=== PATIENT | male | born 1950 | race Caucasian/White ===

== ENCOUNTER 2023-04-01 07:50 | Outpatient (OUT) | payer MEDICARE, OTHER, SELFPAY ==
--- NOTE | 2023-04-01 08:00 | US_ITS ---
The [address] [address] Patient Name: RIZWAN LOCK MRN: [id number] date: 1950 Sex: M Assigned Patient Location: Current Patient Location: US Accession/Order Number: [id number] Exam Date: 04/01/2023 08:01 Report Date: 04/01/2023 08:39 At the request of: MICKI MCRAE Procedure: US renal BI Ultrasound kidneys, bilateral HISTORY: Kidney Stone N20.0, Nocturia R35.1 COMPARISON: None. TECHNIQUE: Transabdominal ultrasound imaging of both kidneys was performed. FINDINGS: Both kidneys demonstrate normal echotexture and echogenicity. The right kidney measures 13.3 x 6.4 x 7.1 cm with diffuse cortical thinning to 0.9 cm. There is no hydronephrosis of right kidney. The left kidney measures 14.8 x 5.7 x 7.1 cm. Renal cortex measures 1.1 cm. No hydronephrosis of left kidney. There are tiny echogenic structures with twinkle artifact seen throughout the left kidney, could be renal vascular calcifications or tiny nonobstructing stones. No structural renal lesion is seen on either side. The bladder is incompletely distended and not well evaluated, with prevoid volume of 35 cc. US/US renal BI IMPRESSION: 1. Diffuse cortical thinning of both kidneys, without hydronephrosis. 2. Tiny punctate calcifications in the left kidney that could be renal vascular calcific lesions versus tiny nonobstructing stones. 3. Incompletely distended bladder. Electronically authenticated by: MICAELA JUNG Date: 04/01/2023 08:39
== END 2023-04-01 07:51 | disposition home or self-care (01) ==
LOC: US 07:50
PROVIDERS: PCP Family Medicine; Visit Provider Urology
DX: N40.1 Benign prostatic hyperplasia with lower urinary tract symptoms (principal); N20.0 Calculus of kidney; R35.1 Nocturia; N52.9 Male erectile dysfunction, unspecified
CPT/HCPCS: 76775

== ENCOUNTER 2023-04-25 07:29 | Outpatient (OUT) | payer MEDICARE, OTHER, SELFPAY ==
[2023-04-25 07:51] LABS: Basophils Percent Auto 0.4 % (0.2-2.0); Eosinophils Absolute Auto 0.2 10^3/uL (0.0-0.7); Eosinophils Percent Auto 1.8 % (0.9-7.0); Immature Granulocytes Abs Auto 0.03 10^3/uL (0.00-0.03); Immature Granulocytes Pct Auto 0.3 % (0.0-0.5); Lymphocytes Absolute Auto 2.9 10^3/uL (1.2-3.8); Lymphocytes Percent Auto 28.6 % (20.5-60.0); Mean Corpuscular HGB Conc 32.7 g/dL (29.9-35.2); Mean Corpuscular Hemoglobin 29.1 pg (25.9-34.0); Mean Corpuscular Volume 89.3 fL (80.0-94.0); Mean Platelet Volume 9.5 fL (9.5-13.5); Monocytes Absolute Auto 0.7 10^3/uL (0.3-0.8); Monocytes Percent Auto 6.7 % (1.7-12.0); Neutrophils Absolute Auto 6.3 10^3/uL (1.4-6.5); Neutrophils Percent Auto 62.2 % (43.0-75.0); Platelet Count 262 10^3/uL (150-450); Red Blood Count 5.49 10^6/uL (4.70-6.10); Red Cell Distribution Width 14.4 % (11.0-15.0); White Blood Count 10.1 10^3/uL (4.0-11.0)
[2023-04-25 08:21] LABS: Estimated Average Glucose 108 mg/dL; Glycohemoglobin A1C 5.4 % (4.5-6.2)
[2023-04-25 08:38] LABS: Prostate Specific Antigen Scrn 0.59 ng/mL (<=4.00)
[2023-04-25 09:10] LABS: Alanine Aminotransferase 38 U/L (16-63); Albumin Level 3.8 g/dL (3.4-5.0); Alkaline Phosphatase 58 U/L (46-116); Aspartate Amino Transferase 27 U/L (15-37); BUN Creatinine Ratio 11.8; Bilirubin Total 0.5 mg/dL (0.2-1.0); Chloride 102 mmol/L (98-107); Cholesterol 137 mg/dL (<=200); Estimated GFR (African America >60 (>=60); Estimated GFR (Non-African Ame >60 (>=60); Free T3 2.47 pg/mL (2.18-3.98); Globulin 3.8 g/dL; Glucose 99 mg/dL (74-106); HDL Cholesterol 34 mg/dL (40-60); Sodium 138 mmol/L (136-145); Thyroid Stimulating Hormone 3.364 uIU/mL (0.358-3.740); Total Protein 7.6 g/dL (6.4-8.2); Triglycerides 216 mg/dL (<=150); VLDL CHOLESTEROL 43.2 mg/dL
[2023-04-26 11:08] LABS: Insulin 30.9 uIU/mL (2.6-24.9)
== END 2023-04-25 07:30 | disposition home or self-care (01) ==
LOC: LAB 07:32
PROVIDERS: PCP Family Medicine; Visit Provider Family Medicine
DX: I10 Essential (primary) hypertension (principal); G25.0 Essential tremor; E78.5 Hyperlipidemia, unspecified; R73.09 Other abnormal glucose; Z12.5 Encounter for screening for malignant neoplasm of prostate
CPT/HCPCS: 36415; 80053; 80061; 83036; 83525; 84436; 84443; 84481; 85025; G0103

== ENCOUNTER 2023-08-15 08:57 | Observation (INO) | payer MEDICARE, OTHER, SELFPAY ==
[2023-08-15] VITALS (29 sets, daily range): BP systolic 122–168; BP diastolic 66–89; PULSE 64–83; RESP 9–23; TEMP 36.4–36.5; O2SAT 91–97; BMI 41.1; BMI 43.4
--- NOTE | 2023-08-15 09:15 | ED.GENADUL1 ---
HPI - General Adult General Chief complaint: Chest Pain Stated complaint: CHEST PAIN/ SHORTNESS OF BREATH Time Seen by Provider: 08/15/23 09:05 Source: patient Mode of arrival: Wheelchair History of Present Illness HPI narrative: Patient is a 73-year-old male who is presenting to the Emergency Room with chief complaint of pain between his scapula that radiates to the front of his chest. Patient has had cough, congestion for the past 3 weeks. Patient woke up at 7 AM this morning with chest ache/tightness with radiation into his shoulder and left arm. Patient also had a different pain from his left mid scapula intermittently rating to the front. Patient says his pain was 8/10 when he woke up this morning at 7 AM. Patient is not diaphoretic, no nausea vomiting. Patient Has no recent traveling or trauma. Patient has no history of aortic aneurysm or dissection. Patient has no cardiac history. Patient was having chest pain and tightness 6 months ago, he had a stress test and echocardiogram at that time. Dr. Lerma sent him home with nitroglycerin tablets to use if needed. Patient did take 2 nitroglycerin tablets this morning his pain and discomfort is currently 2/10. . All systems are negative except as noted/marked. All systems reviewed and otherwise negative. . Nurses note and vital signs reviewed and patient is not hypoxic. General: The patient appears well and in no apparent distress. Patient is resting comfortably on cart. Patient is not toxic, lethargic, or listless Skin: Warm, dry, no pallor noted. There is no rash noted. No petechiae, purpura. Head: Normocephalic, atraumatic Eye: Normal conjunctiva, no drainage, EOMI. PERRL Ears, Nose, Mouth, and Throat: oral mucosa is moist. Nares patent. Mouth without vesicles. Cardiovascular: Regular Rate and Rhythm, no murmur, gallop, rub Respiratory: Patient is in no distress, no accessory muscle use, lungs are clear to auscultation, no wheezing, rales or rhonchi Back: Patient had no reproducible tenderness to palpation to the soft tissue to mid scapular area. Patient has chronic skin condition, Multiple dry skin tags.non-tender, no CVA tenderness bilaterally to percussion. No CT LS midline pain. GI: soft, No midepigastric tenderness to palpation, obese, no peritoneal signs, no flank pain bilateral, otherwise no tenderness to palpation, no masses appreciated. No rebound, guarding, or rigidity noted. No flank pain bilateral, No distention Musculoskeletal: Patient has full range of motion of all of the extremities, no motor, sensory, or focal neurological deficits Neurological: A&O x3, normal speech Psychiatric: Cooperative Related Data Home Medications Medication Instructions Recorded Confirmed allopurinol 300 mg tablet 300 mg PO DAILY 08/15/23 08/15/23 hydrochlorothiazide 12.5 mg capsule 12.5 mg PO Q12H 08/15/23 08/15/23 levofloxacin 750 mg tablet 750 mg PO Q24H 08/15/23 08/15/23 meloxicam 15 mg tablet 15 mg PO DAILY 08/15/23 08/15/23 potassium citrate 10 mEq (1,080 10 meq PO DAILY 08/15/23 08/15/23 mg) tablet,extended release primidone 50 mg tablet 50 mg PO DAILY 08/15/23 08/15/23 simvastatin 20 mg tablet 20 mg PO DAILY 08/15/23 08/15/23 solifenacin 10 mg tablet 10 mg PO DAILY 08/15/23 08/15/23 tamsulosin 0.4 mg capsule 0.4 mg PO Q24H 08/15/23 08/15/23 Allergies Allergy/AdvReac Type Severity Reaction Status Date / Time No Known Drug Allergies Allergy Verified 08/15/23 09:06 Exam Constitutional Vital Signs, click to edit/add: Last Vital Signs Temp 97.7 F 08/15/23 11:51 Pulse 66 08/15/23 11:46 Resp 23 08/15/23 11:46 BP 127/73 08/15/23 11:46 Pulse Ox 95 08/15/23 11:46 O2 Del Method Room Air 08/15/23 09:06 Course Vital Signs Vital signs: Vital Signs Pulse Rate 79 08/15/23 09:03 Respiratory Rate 18 08/15/23 09:03 Temperature 97.7 F 08/15/23 11:51 Pulse Rate 66 08/15/23 11:46 Respiratory Rate 23 08/15/23 11:46 Blood Pressure 127/73 08/15/23 11:46 Pulse Oximetry 95 08/15/23 11:46 Oxygen Delivery Method Room Air 08/15/23 09:06 Medical Decision Making MDM Narrative Medical decision making narrative: Patient's initial EKG, troponin were negative. D-dimer was Resident, but CT of the chest was ordered To rule out PE, possibility of dissection or other acute pathology causing patient's mid scapular pain radiating to his sternum. Patient has not had a return of significant pain. Patient will be admitted for chest pain rule out acute coronary syndrome. Patient will be admitted to Dr. Lerma for Chest pain to rule out acute cord syndrome. Patient did have a stress test and echocardiogram approximately 6 months ago. Patient did have a cardiac stress test approximately 10-15 years ago. Patient has no cardiac history. Patient does take medication for cholesterol and high blood pressure. Patient's heart score is 4 Patient will be admitted to [facility] telemetry to Dr. Lerma. Lab Data Lab results reviewed: Yes I reviewed the patient's lab results Labs: Lab Results 08/15/23 Range/Units 09:10 WBC 12.8 H (4.0-11.0) 10^3/uL RBC 5.49 (4.70-6.10) 10^6/uL Hgb 16.3 (14.0-18.0) g/dL Hct 49.4 (42.0-54.0) % MCV 90.0 (80.0-94.0) fL MCH 29.7 (25.9-34.0) pg MCHC 33.0 (29.9-35.2) g/dL RDW 14.1 (11.0-15.0) % Plt Count 282 (150-450) 10^3/uL MPV 9.4 L (9.5-13.5) fL Neut % (Auto) 70.9 (43.0-75.0) % Lymph % (Auto) 19.1 L (20.5-60.0) % [place] % (Auto) 7.3 (1.7-12.0) % Eos % (Auto) 1.8 (0.9-7.0) % Baso % (Auto) 0.4 (0.2-2.0) % Neut # (Auto) 9.1 H (1.4-6.5) 10^3/uL Lymph # (Auto) 2.4 (1.2-3.8) 10^3/uL [place] # (Auto) 0.9 H (0.3-0.8) 10^3/uL Eos # (Auto) 0.2 (0.0-0.7) 10^3/uL Baso # (Auto) 0.1 (0.0-0.1) 10^3/uL Abs Immat Gran (auto) 0.06 H (0.00-0.03) 10^3/uL Imm/Tot Granulo (auto) 0.5 (0.0-0.5) % D-Dimer 1.98 H* (<=0.59) mg/L FEU Sodium 136 (136-145) mmol/L Potassium 3.6 (3.5-5.1) mmol/L Chloride 102 (98-107) mmol/L Carbon Dioxide 31.0 (21.0-32.0) mmol/L Anion Gap 6.6 BUN 17.0 (7.0-18.0) mg/dL Creatinine 0.92 (0.70-1.30) mg/dL Est GFR ( Amer) >60 (>=60) Est GFR (Non-Af Amer) >60 (>=60) BUN/Creatinine Ratio 18.5 Glucose 85 (74-106) mg/dL Calcium 9.0 (8.5-10.1) mg/dL Total Bilirubin 0.6 (0.2-1.0) mg/dL AST 19 (15-37) U/L ALT 29 (16-63) U/L Alkaline Phosphatase 59 (46-116) U/L Troponin I High Sens 6.0 (4.0-76.1) pg/mL NT-Pro-B Natriuret Pep 84.0 (<=900.0) pg/mL Total Protein 7.2 (6.4-8.2) g/dL Albumin 3.3 L (3.4-5.0) g/dL Globulin 3.9 g/dL Albumin/Globulin Ratio 0.8 Lipase 23.0 (16.0-77.0) U/L ECG Data Attestation: I personally reviewed and interpreted this ECG as follows: (EKG interpretation. Normal sinus rhythm at 75 beats a minute. Normal axis deviation. No acute ST elevation, no acute ectopy. QTC of 418. ) Discharge Plan Discharge Chief Complaint: Chest Pain Clinical Impression: Chest pain Patient Disposition: Home, Self-Care Time of Disposition Decision: 12:02 Condition: Fair Prescriptions / Home Meds: No Action primidone 50 mg tablet 50 mg PO DAILY meloxicam 15 mg tablet 15 mg PO DAILY tamsulosin 0.4 mg capsule 0.4 mg PO Q24H potassium citrate 10 mEq (1,080 mg) tablet extended release 10 meq PO DAILY simvastatin 20 mg tablet 20 mg PO DAILY hydrochlorothiazide 12.5 mg capsule 12.5 mg PO Q12H allopurinol 300 mg tablet 300 mg PO DAILY levofloxacin 750 mg tablet 750 mg PO Q24H solifenacin 10 mg tablet 10 mg PO DAILY Stand Alone Forms: Portal Instructions Referrals: Guicho Lerma MD [Primary Care Provider] - 1 week
--- NOTE | 2023-08-15 09:17 | ECG_ITS ---
The [facility] Test Date: 2023-08-15 Pat Name: RIZWAN LOCK Department: Room: - Gender: Male [employer]: : 1950 Requested By: MARIELLE RAMIREZ Order Number: [id number] Reading MD: MARIELLE RAMIREZ Measurements Intervals [place] Rate: 75 P: 63 SC: 238 QRS: 85 QRSD: 74 T: 59 QT: 388 QTc: 418 Interpretive Statements 1100 Sinus rhythm 2231 First degree AV block 3433 Septal myocardial infarction, probably old 8102 Low QRS voltage in chest leads 9150 abnormal ECG Compared to ECG 07/26/2022 10:22:47 First degree AV block now present Myocardial infarct finding now present Electronically Signed On 08-17-2023 6:50:03 EST by MARIELLE RAMIREZ
[2023-08-15] MEDS: ASPIRIN 81 MG TAB.CHEW 162 MG PO (09:28)
--- NOTE | 2023-08-15 09:32 | CT_ITS ---
The [address] [address] Patient Name: RIZWAN LOCK MRN: [id number] date: 1950 Sex: M Assigned Patient Location: ER Current Patient Location: ER Accession/Order Number: [id number] Exam Date: 08/15/2023 09:58 Report Date: 08/15/2023 10:34 At the request of: YOVANI VELASCO Procedure: CT angio chest EXAM: CT angio chest HISTORY: sob COMPARISON: 07/26/2022 TECHNIQUE: CT angiography of the chest was performed without IV contrast followed by IV contrast, including 3D post processing CTA image reconstruction. CT dose reduction technique was used, including Automated Exposure Control. IV CONTRAST: 98 mL Omnipaque 350 FINDINGS: Diagnostic quality: Adequate There is no evidence for pulmonary embolism. The heart is not enlarged. There is no pericardial effusion. There are no abnormally enlarged hilar or mediastinal lymph nodes. The central tracheobronchial tree is clear. The lungs are clear. There is no pleural effusion. No acute process identified in the visualized upper abdomen. No destructive osseous changes are seen. There are degenerative changes of the thoracic spine. CT/CT angio chest IMPRESSION: No CT findings to suggest pulmonary embolism. Electronically authenticated by: TRACEY RIDDLE Date: 08/15/2023 10:34
[2023-08-15 09:41] LABS: Basophils Absolute Auto 0.1 10^3/uL (0.0-0.1); Basophils Percent Auto 0.4 % (0.2-2.0); Eosinophils Absolute Auto 0.2 10^3/uL (0.0-0.7); Eosinophils Percent Auto 1.8 % (0.9-7.0); Hematocrit 49.4 % (42.0-54.0); Hemoglobin 16.3 g/dL (14.0-18.0); Immature Granulocytes Abs Auto 0.06 10^3/uL (0.00-0.03); Immature Granulocytes Pct Auto 0.5 % (0.0-0.5); Lymphocytes Absolute Auto 2.4 10^3/uL (1.2-3.8); Lymphocytes Percent Auto 19.1 % (20.5-60.0); Mean Corpuscular Hemoglobin 29.7 pg (25.9-34.0); Mean Platelet Volume 9.4 fL (9.5-13.5); Monocytes Absolute Auto 0.9 10^3/uL (0.3-0.8); Monocytes Percent Auto 7.3 % (1.7-12.0); Neutrophils Absolute Auto 9.1 10^3/uL (1.4-6.5); Neutrophils Percent Auto 70.9 % (43.0-75.0); Platelet Count 282 10^3/uL (150-450); Red Blood Count 5.49 10^6/uL (4.70-6.10); Red Cell Distribution Width 14.1 % (11.0-15.0); White Blood Count 12.8 10^3/uL (4.0-11.0)
[2023-08-15 09:42] LABS: Alanine Aminotransferase 29 U/L (16-63); Albumin Globulin Ratio 0.8; Albumin Level 3.3 g/dL (3.4-5.0); Alkaline Phosphatase 59 U/L (46-116); Anion Gap 6.6; Aspartate Amino Transferase 19 U/L (15-37); BUN Creatinine Ratio 18.5; Bilirubin Total 0.6 mg/dL (0.2-1.0); Chloride 102 mmol/L (98-107); Estimated GFR (African America >60 (>=60); Estimated GFR (Non-African Ame >60 (>=60); Globulin 3.9 g/dL; Glucose 85 mg/dL (74-106); Potassium 3.6 mmol/L (3.5-5.1); Sodium 136 mmol/L (136-145); Total Protein 7.2 g/dL (6.4-8.2)
[2023-08-15 09:48] LABS: D Dimer 1.98 mg/L FEU (<=0.59)
[2023-08-15 12:44] LABS: Troponin I High Sensitivity 6.3 pg/mL (4.0-76.1)
--- NOTE | 2023-08-15 12:53 | CA_ITS ---
Patient Name: RIZWAN LOCK MR#: [id number] : 1950 Exam Date: 08/15/2023 Ordering Doctor: DR MARIELLE RAMIREZ . ECHOCARDIOGRAM REPORT PROCEDURE: CA ECHO LIMITED INDICATIONS: Dyspnea, chest pain COMPARISON: None. DESCRIPTION: Limited ECHOCARDIOGRAM Real-time transthoracic echocardiography with 2D and M-mode performed. QUALITY: Technical quality was good. Limited echocardiogram per physician. 68 , 285#, BSA 2.38 m2 LEFT VENTRICLE: Normal chamber size. Mild concentric left ventricular hypertrophy. LV EF: Global left ventricular systolic function is normal; visually estimated ejection fraction is 60 to 65%. No obvious wall motion abnormalities. LEFT ATRIUM: Normal chamber size. RIGHT ATRIUM: Normal chamber size. RIGHT VENTRICLE: Normal chamber size. Normal systolic function. TRICUSPID VALVE: Normal mobility and thickness. MITRAL VALVE: Normal mobility and thickness. There is no mitral annular calcification. AORTIC VALVE: Normal trileaflet appearance. No visible sclerosis. Normal leaflet mobility. AORTIC ROOT: Normal diameter and appearance. PULMONIC VALVE: Normal thickness and mobility. PERICARDIUM: Anterior free space; trivial effusion versus fat pad. CONCLUSION: 1. Global left ventricular systolic function is normal; visually estimated ejection fraction is 60 to 65% 2. Mildly increased left ventricular wall thickness 3. The right ventricle is normal in size and systolic function 4. Anterior free space; trivial effusion versus fat pad A limited echocardiogram was performed Adult Echocardiography Procedure Report Left Ventricle LVEDD (3.7 - 5.6 cm): 4.31 cm LVESD (2.2 - 4.0 cm): 2.60 cm LVIVS thickness (0.6 - 1.2 cm): 1.27 cm LVPW thickness (0.5 - 1.0 cm): 1.13 cm LVOT Diameter 2.40 cm Left Atrium LA Volume Index (2D A2C): 21.95 ml/m2 Left Atrium Systolic Dimension: 3.63 cm Mitral Valve Right Ventricle Aorta AO Root Diam: 3.46 cm Ascending Ao Diam: 2.83 cm Aortic Valve Tricuspid Valve Pulmonic Valve Right Atrium Right Atrium Systolic Pressure: 52.57 ml, 52.57 ml Dictated by: Jaylan Rios M.D. on 08/18/2023 at 13:45 Approved by: Jaylan Rios M.D. on 08/18/2023 at 13:48
[2023-08-15 13:21] LABS: Thyroid Stimulating Hormone 1.889 uIU/mL (0.358-3.740)
[2023-08-15 13:31] LABS: Bilirubin Urine NEGATIVE (NEGATIVE); Blood Urine NEGATIVE (NEGATIVE); Clarity Urine CLEAR (CLEAR); Color Urine YELLOW (YELLOW); Glucose Urine UA NEGATIVE (NEGATIVE); Ketones Urine NEGATIVE (NEGATIVE); Leukocyte Esterase Urine NEGATIVE (NEGATIVE); Nitrite Urine NEGATIVE (NEGATIVE); Protein Urine NEGATIVE (NEG/TRACE); Urobilinogen Urine 0.2 EU/dL (0.2-1.0)
[2023-08-15 13:38] LABS: Bacteria Urine NONE SEEN #/HPF (NONE SEEN); Cast Seen? NONE SEEN #/LPF (NONE SEEN); Crystals Seen? None Seen #/HPF (None Seen); Mucus Urine NONE SEEN (NONE SEEN); RBC Urine NONE SEEN #/HPF (0-2); Squamous Epithelial Cell Urine NONE SEEN #/LPF (NONE/RARE); WBC Urine NONE SEEN #/HPF (NONE SEEN)
--- NOTE | 2023-08-15 14:18 | DIETREC ---
Recommendation: Change diet to Cardiac diet; regular diet texture
[2023-08-15] MEDS: PANTOPRAZOLE SODIUM 40 MG VIAL IV (15:40)
[2023-08-15] MEDS: METHYLPREDNISOLONE SOD SUCC PF 125 MG/2 ML VIAL 60 MG IVP (15:40)
[2023-08-15] MEDS: CEFTRIAXONE 1,000 MG in 0.9 % SODIUM CHLORIDE 50 ML 100 MG IV (15:40)
[2023-08-15 16:17] LABS: Troponin I High Sensitivity 5.6 pg/mL (4.0-76.1)
--- NOTE | 2023-08-15 16:57 | P.HP_ITS ---
H&P: HPI History of Present Illness Chief complaint: CHEST PAIN R/O, SHORTNESS OF BREATH Narrative: Seen in Er with chest pain - presure typoe - no assoc symptosm - admmitted to obs to rule out acute ischemia Review of Systems ROS Status of ROS 10 or more systems reviewed and unremark able except as noted in history and below PFSH PFSH Social History Highest level of school completed/degree received: Associate degree: occupational, technical, vocational program Meds Home Medications and Allergies Home Medications Medication Instructions Recorded Confirmed Type allopurinol 300 mg tablet 300 mg PO DAILY 08/15/23 08/15/23 History aspirin 81 mg capsule 81 mg PO DAILY #30 caps 08/15/23 Rx hydrochlorothiazide 12.5 mg capsule 12.5 mg PO QDAY 08/15/23 08/15/23 History levofloxacin 750 mg tablet 750 mg PO Q24H 08/15/23 08/15/23 History meloxicam 15 mg tablet 15 mg PO DAILY 08/15/23 08/15/23 History potassium citrate 10 mEq (1,080 10 meq PO BID 08/15/23 08/15/23 History mg) tablet,extended release primidone 50 mg tablet 50 mg PO BID 08/15/23 08/15/23 History simvastatin 20 mg tablet 20 mg PO .QHS 08/15/23 08/15/23 History solifenacin 10 mg tablet 10 mg PO DAILY 08/15/23 08/15/23 History tamsulosin 0.4 mg capsule 0.4 mg PO Q24H 08/15/23 08/15/23 History Allergies Allergy/AdvReac Type Severity Reaction Status Date / Time No Known Drug Allergies Allergy Verified 08/15/23 09:06 Exam Constitutional Vital Signs, click to edit/add: Last Vital Signs Temp 97.6 F 08/15/23 12:51 Pulse 65 08/15/23 14:00 Resp 18 08/15/23 12:51 BP 147/84 H 08/15/23 12:51 Pulse Ox 95 08/15/23 12:51 O2 Del Method Room Air 08/15/23 12:51 Documenting provider has reviewed patient's vital signs: yes Common normals: no apparent distress Chest Common normals: inspection of chest normal Respiratory Common normals: normal respiratory effort Cardio Common normals: no JVD GI Common normals: Normal to inspection, nondistended, normoactive bowel sounds present Results Labs Labs: Short CBC 08/15/23 Range/Units 09:10 WBC 12.8 H (4.0-11.0) 10^3/uL Hgb 16.3 (14.0-18.0) g/dL Hct 49.4 (42.0-54.0) % Plt Count 282 (150-450) 10^3/uL BMP 08/15/23 09:10 Sodium 136 Potassium 3.6 Chloride 102 Carbon Dioxide 31.0 BUN 17.0 Creatinine 0.92 Glucose 85 Calcium 9.0 Liver Function 08/15/23 Range/Units 09:10 Total Bilirubin 0.6 (0.2-1.0) mg/dL AST 19 (15-37) U/L ALT 29 (16-63) U/L Alkaline Phosphatase 59 (46-116) U/L Albumin 3.3 L (3.4-5.0) g/dL Urine 08/15/23 Range/Units 12:18 Urine Color Yellow (YELLOW) Urine Clarity Clear (CLEAR) Urine pH 5.0 (5.0-9.0) Ur Specific [place] 1.010 (1.005-1.025) Urine Protein Negative (NEG/TRACE) mg/dL Urine Glucose (UA) Negative (NEGATIVE) mg/dL Assessment and Plan Assessment and Plan (1) Chest pain: Plan Chest pain - enzymes rule aout acue damage, echo wiht excellent wallmotion and ef - will d/c to home - see me in office for setting up repeat stress test -
--- NOTE | 2023-08-18 16:10 | CM.DCFOLLOWU ---
Person spoke with:patient How are you feeling? well How is your pain? no pain Did you understand your discharge instructions? yes Do you have any questions about your discharge instructions? no Were you given any prescriptions at discharge? yes Were you able to get your prescriptions filled? yes Do you understand how to take your medications as ordered? yes Do you have any questions about your follow up appointment and do you plan to keep your follow up appointment? no questions, scheduled follow up with Dr. Lerma Is there anything else that you would like to discuss? no Questions/Comments/Concerns/Other:
== END 2023-08-15 17:13 | disposition home or self-care (01) ==
LOC: ER 12:02 → MS 12:44
PROVIDERS: Admitting Provider Family Medicine; Emergency Provider Emergency Medicine; PCP Family Medicine; Visit Provider Family Medicine
DX: R07.9 Chest pain, unspecified (principal); R06.02 Shortness of breath; Z79.899 Other long term (current) 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; Z79.82 Long term (current) use of aspirin
CPT/HCPCS: 36415; 71275; 80053; 81001; 83690; 83880; 84443; 84484; 85025; 85378; 93005; 93308; 94761; 96365; 96375; 99285; G0378; J0696; J2930; Q9967

== ENCOUNTER 2023-09-02 13:35 | Inpatient (IN) | payer MEDICARE, OTHER, SELFPAY ==
[2023-09-02] VITALS (23 sets, daily range): BP systolic 137–159; BP diastolic 77–86; PULSE 54–92; RESP 13–32; TEMP 36.5–36.7; O2SAT 94–98; BMI 38.0; BMI 38.7
--- NOTE | 2023-09-02 13:39 | ECG_ITS ---
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1950 Requested By: MARIELLE RAMIREZ Order Number: [id number] Reading MD: MARIELLE RAMIREZ Measurements Intervals [place] Rate: 87 P: 55 MN: 214 QRS: 74 QRSD: 74 T: 50 QT: 358 QTc: 402 Interpretive Statements 1100 Sinus rhythm 1470 with occasional supraventricular premature complexes 1570 with occasional ventricular premature complexes 2231 First degree AV block 4068 Nonspecific [place] abnormality 9150 abnormal ECG Compared to ECG 08/15/2023 09:04:52 Ventricular premature complex(es) now present Myocardial infarct finding no longer present Electronically Signed On 09-05-2023 6:22:18 EST by MARIELLE RAMIREZ
--- OUTSIDE RECORDS SUMMARY | 2023-09-02 13:46 | XMS_ITS | CCD ---
Author Name Unknown Address [address] [facility] [address] [place] [address] Organization [facility] Care Team Providers Care Warehouser Name Role Phone MD Marielle Lerma Primary Care Provider [phone] MD Miki Zeng Attending Provider Marielle Lerma Primary Care Physician [phone] DR MIKI ZENG Admitting Unavailable THOR, DR SWEET Attending Unavailable MAYCOY, DR PALOMARES Primary Care Unavailable THOR, DR SWEET Consulting Unavailable ZIEBDMITRIY, DR BEHZAD Cedeño Consulting Unavailable HOY, DR PALOMARES Primary Care Unavailable HOY, DR PALOMARES Admitting Unavailable HOY, DR PALOMARES Attending Unavailable HOY, DR PALOMARES Consulting Unavailable NEIDA, DR BEHZAD Cedeño Consulting Unavailable LATONYA AMADOR Consulting Unavailable THOR, DR SWEET Admitting Unavailable THOR, DR SWEET Attending Unavailable HOY, DR PALOMARES Primary Care Unavailable THOR, DR SWEET Consulting Unavailable THOR, DR SWEET Admitting Unavailable THOR, DR SWEET Attending Unavailable ASHLEY, DR PALOMARES Primary Care Unavailable THOR, DR SWEET Consulting Unavailable THOR, DR SWEET Admitting Unavailable THOR, DR SWEET Attending Unavailable HOY, DR PALOMARES Primary Care Unavailable THOR, DR SWEET Consulting Unavailable ZIABIEL, DR BEHZAD Cedeño Consulting Unavailable THOR, DR SWEET Admitting Unavailable THOR, DR SWEET Attending Unavailable HOKanika, DR PALOMARES Primary Care Unavailable ASHLEY, DR PALOMARES Primary Care Unavailable THOR, DR SWEET Consulting Unavailable THOR, DR SWEET Admitting Unavailable THOR, DR SWEET Attending Unavailable ZIEBDMITRIY, DR BEHZAD Cedeño Consulting Unavailable ASHLEY, DR PALOMARES Admitting Unavailable ASHLEY, DR PALOMARES Attending Unavailable HOY, DR PALOMARES Primary Care Unavailable MAYCOY, DR PALOMARES Consulting Unavailable THOR, DR SWEET Admitting Unavailable THOR, DR SWEET Attending Unavailable HOY, DR PALOMARES Primary Care Unavailable THOR, DR SWEET Consulting Unavailable WEST, DR RAFAEL Pizano Consulting Unavailable ZENG, DR SWEET Admitting Unavailable ZENG, DR SWEET Attending Unavailable HOY, DR PALOMARES Primary Care Unavailable ZENG, DR SWEET Consulting Unavailable WEST, DR RAFAEL Pizano Consulting Unavailable HOY, DR PALOMARES Admitting Unavailable HOY, DR PALOMARES Attending Unavailable HOY, DR PALOMARES Primary Care Unavailable HOY, DR PALOMARES Consulting Unavailable HOY, DR PALOMARES Admitting Unavailable HOY, DR PALOMARES Attending Unavailable HOY, DR PALOMARES Primary Care Unavailable ZENG, DR SEWET Admitting Unavailable ZENG, DR SWEET Attending Unavailable HOY, DR PALOMARES Primary Care Unavailable ZENG, DR SWEET Consulting Unavailable ZIEBER, DR BEHZAD Cedeño Consulting Unavailable AGUBOSIM, ROMEL Consulting Unavailable LONG, MILADYS Consulting Unavailable HOY, DR PALOMARES Primary Care Unavailable HAY, DR REEDER Admitting Unavailable HAY, DR REEDER Attending Unavailable WEST, DR RAFAEL Pizano Consulting Unavailable HAY, DR REEDER Consulting Unavailable HOY, DR PALOMARES Primary Care Unavailable HOY, DR PALOMARES Admitting Unavailable HOY, DR PALOMARES Attending Unavailable HOY, DR PALOMARES Consulting Unavailable WEST, DR RAFAEL Pizano Consulting Unavailable MARKER, DR GRANT Consulting Unavailable AGUBOSIM, ROMEL Consulting Unavailable AHMED, CARLOS Consulting Unavailable LUE ., NADEGE Tineo Consulting Unavailable NARDINBEHZAD Franklin Consulting Unavailable HOY, DR PALOMARES Primary Care Unavailable HOY, DR PALOMARES Consulting Unavailable NADERER, DR ERMA Garcia Admitting Unavailable NADERER, DR ERMA Garcia Attending Unavailable NADERER, DR ERMA Garcia Consulting Unavailable ANNITA, RUDDY Consulting Unavailable LUE ., NADEGE Tineo Consulting Unavailable MCCBEHZAD BECKER Consulting Unavailable THOR, DR SWEET Admitting Unavailable THOR, DR SWEET Attending Unavailable HOY, DR PALOMARES Primary Care Unavailable ZENG, DR SWEET Consulting Unavailable HOY, DR PALOMARES Primary Care Unavailable RUDDY ARIZA Admitting Unavailable ANNITARUDDY Attending Unavailable ANNITARUDDY Consulting Unavailable TROTTACACIA Franklin Consulting Unavailable Miki ZENG Attending Unavailable Miki ZENG Attending Unavailable Miki ZENG Attending Unavailable Allergies Allergy Classification Reported Allergen(s) Allergy Type Date of Onset Reaction(s) Facility (1 source) No Known Medication Allergies; Translations: [No Known Medication Allergies] Propensity to adverse reactions (disorder) [facility] Repository Medications Current Medications Medication Drug Class(es) Dates Sig (Normalized) Sig (Original) acetaminophen 325 mg oral tablet (1 source) Start: 09-02-2019 take 2 tablets by mouth once daily in the morning Acetaminophen (Tylenol) 325 mg Tablet Active 650 MG PO Every morning September 02, 2019 12:46pm acetaminophen 500 mg / diphenhydrAMINE hydrochloride 25 mg oral tablet (1 source) Histamine-1 Receptor Antagonist Start: 09-02-2019 take 2 tablets by mouth once daily at bedtime Diphenhydramine-Alan taminophen (Tylenol Pm Extra Strength) 25-500 mg Tablet Active 2 TAB PO Daily at bedtime September 02, 2019 12:46pm acetaminophen 325 mg / HYDROcodone bitartrate 5 mg oral tablet (4 sources) Opioid Agonist Start: 05-29-2021 take 1 tablet by mouth once daily acetaminophen-hydro codone 325 mg-5 mg oral tablet 1 tab(s), Oral, Daily pain, Refill(s) 0 Start Date: 05/29/21 Status: Ordered Start: 09-07-2019 End: 10-12-2019 take 1 tablet by mouth every four to six hours Hydrocodone-Acetaminophen (Brashear) 5-325 mg tablet Active 1 TAB PO EVERY 4-6 HOURS 40 7 September 28, 2019 1:45pm allopurinol 300 mg oral tablet (2 sources) Xanthine Oxidase Inhibitor Start: 03-10-2023 take 1 tablet by mouth once daily allopurinol 300 mg Tab 300 mg = 1 tab(s), Oral, Daily, # 90 tab(s), Refills(s) 3, Pharmacy: [facility]/pharmacy #[id number], 180, cm, 08/19/22 9:50:00 EST, Height/Length Dosing, 136.2, kg, 08/19/22 9:50:00 EST, Weight Dosing Start Date: 03/10/23 Status: Ordered Start: 02-25-2022 allopurinol 30 0 mg Tab 150 mg = 0.5 tab(s), Oral, Daily, # 30 tab(s), Refills(s) 11, Pharmacy: [facility] [id number], 180, cm, 02/25/22 14:22:00 EDT, Height/Length Dosing, 135, kg, 02/25/22 14:22:00 EDT, Weight Dosing Start Date: 02/25/22 Status: Ordered aspirin 81 mg oral tablet (3 sources) Platelet Aggregation Inhibitor, Nonsteroidal Anti-inflammatory Drug Start: 02-10-2019 take 2 tablets by mouth once daily aspirin 81 mg oral tablet 162 mg = 2 tab(s), Oral, Daily, Refills(s) 0 Start Date: 02/10/19 Status: Ordered Start: 01-02-2018 take 1 tablet by isa twice daily Aspirin (Aspir-81) 81 mg Tablet,Delayed Release (Dr/Ec) Active 1 TAB PO Twice daily January 02, 2018 9:35am clindamycin 0.01 mg/mg topical gel (1 source) Lincosamide Antibacterial Start: 05-25-2021 Clindagel 1% topical gel 1 keke, Topical, BID, Refill(s) 0 Start Date: 05/25/21 Status: Ordered cloNIDine hydrochloride 0.1 mg oral tablet (2 sources) Central alpha-2 Adrenergic Agonist Start: 04-23-2021 take 1 mg by mouth twice daily cloNIDine 0.1 mg tab mg tab(s), Oral, BID, Refills(s) 0 Start Date: 04/23/21 Status: Ordered colchicine 0.6 mg oral tablet (2 sources) Start: 05-25-2021 take 1 tablet by mouth twice daily colchicine 0.6 mg Tab 0.6 mg = 1 tab(s), Oral, BID, Refills(s) 0 Start Date: 05/25/21 Status: Ordered hydroCHLOROthiazide 12.5 mg oral capsule (2 sources) Thiazide Diuretic Start: 08-19-2022 take 1 capsule by mouth once daily hydrochlorothiazide 12.5 mg Cap 12.5 mg = 1 cap(s), Oral, Daily, # 90 cap(s), Refills(s) 3, Pharmacy: [facility]/pharmacy #[id number], 180, cm, 08/19/22 9:50:00 EST, Height/Length Dosing, 136.2, kg, 08/19/22 9:50:00 EST, Weight Dosing Start Date: 08/19/22 Status: Ordered Start: 02-25-2022 take 1 capsule by mo [facility] once daily hydrochlorothiazide 12.5 mg Cap 12.5 mg = 1 cap(s), Oral, Daily, # 30 cap(s), Refills(s) 6, Pharmacy: [facility] [id number], 180, cm, 02/25/22 14:22:00 EDT, Height/Length Dosing, 135, kg, 02/25/22 14:22:00 EDT, Weight Dosing Start Date: 02/25/22 Status: Ordered hyoscyamine sulfate 0.125 mg oral tablet (1 source) Start: 11-12-2021 hyoscyamine 0. 125 mg oral Tab Refills(s) 0 Start Date: 11/12/21 Status: Ordered lisinopril 40 mg oral tablet (3 sources) Angiotensin Converting Enzyme Inhibitor Start: 01-02-2018 take 1 mg by mouth once daily lisinopril 40 mg Tab mg tab(s), Oral, Daily, Refills(s) 0 Start Date: 02/10/19 Status: Ordered meclizine hydrochloride 25 mg oral tablet (2 sources) Antiemetic Start: 05-25-2021 take 1 tablet by mouth four times daily meclizine 25 mg Tab 25 mg = 1 tab(s), Oral, QID, Refills(s) 0 Start Date: 05/25/21 Status: Ordered meloxicam 15 mg oral tablet (3 sources) Nonsteroidal Anti-inflammatory Drug Start: 02-10-2019 take 1 mg by mouth once daily Mobic 15 mg Tab mg tab(s), Oral, Daily, Refills(s) 0 Start Date: 02/10/19 Status: Ordered Start: 01-02-2018 take 15 mg by mouth twice sarthak y Meloxicam Active 15 MG PO Twice daily January 02, 2018 9:35am Jqdqsnfz-Jvb-Tx-Lycopen-Lute in (Centrum Silver) 0.4-300-250 mg-mcg-mcg Tablet (1 source) Start: 09-02-2019 take 1 tablet by mouth once daily Engjsavi-Yrf-Ix-Lycopen-Lutein (Centrum Silver) 0.4-300-250 mg-mcg-mcg Tablet Active 1 TAB PO Daily September 02, 2019 12:45pm potassium bicarbonate 20 meq effervescent oral tablet (2 sources) Start: 01-02-2018 End: 09-02-2019 Potassium Bicarb-Citric Acid (Effer-K) 20 mEq Tablet, Effervescent Active 20 MEQ PO Twice daily September 02, 2019 12:40pm potassium citrate 10 meq extended release oral tablet (1 source) Start: 04-11-2023 potassium CITRATE 10 mEq ER Tab 10 mEq, 1 tab(s), Oral, BID, 60 tab(s), Refill(s) 11, [facility]/pharmacy #[id number], 180, cm, 04/11/23 11:56:00 EDT, Height/Length Dosing, 127, kg, 04/11/23 11:56:00 EDT, Weight Dosing Start Date: 04/11/23 Status: Ordered pravastatin sodium 20 mg ora l tablet (1 source) HMG- CoA Redu ctas e Inhi bito r Start: 01-02-2018 take 20 mg by mouth once daily at bedtime Pravastatin Active 20 MG PO Daily at bedtime January 02, 2018 9:35am primidone 50 mg oral tablet (3 sources) Anti -epi lept ic Agen t Start: 09-02-2019 take 12.5 mg by mouth once daily at bedtime Primidone Active 12.5 MG PO Daily at bedtime September 02, 2019 12:44pm Start: 02-10-2019 primidone 50 m g Tab 25 mg = 0.5 tab(s), Once a day (at bedtime), Refills(s) 0 Start Date: 02/10/19 Status: Ordered simvastatin 20 mg oral tablet (2 sources) HMG-CoA Reductase Inhibitor Start: 05-29-2021 take 1 tablet by mouth once daily at bedtime simvastatin 20 mg Tab 20 mg = 1 tab(s), Oral, Once a day (at bedtime), Refills(s) 0 Start Date: 05/29/21 Status: Ordered sodium bicarbonate 650 mg oral tablet (1 source) Start: 08-19-2022 take 1 tablet by mouth twice daily sodium bicarbonate 650 mg Tab 650 mg = 1 tab(s), Oral, BID, # 90 tab(s), Refills(s) 3, Pharmacy: [facility]/pharmacy #[id number], 180, cm, 08/19/22 9:50:00 EST, Height/Length Dosing, 136.2, kg, 08/19/22 9:50:00 EST, Weight Dosing Start Date: 08/19/22 Status: Ordered solifenacin succinate 10 mg oral tablet (2 sources) Cholinergic Muscarinic Antagonist Start: 04-08-2022 End: 12-23-2024 take 1 tablet by mouth once daily Vesicare 10 mg Tab 10 mg = 1 tab(s), Oral, Daily, X 90 day(s), # 90 tab(s), Refills(s) 11, Pharmacy: [facility], 180, cm, 02/25/22 14:22:00 EDT, Height/Length Dosing, 135, kg, 02/25/22 14:22:00 EDT, Weight Dosing Start Date: 04/08/22 Stop Date: 12/23/24 Status: Ordered Start: 02-25-2022 take 1 tablet by isa once daily Vesicare 10 mg Tab 10 mg = 1 tab(s), Oral, Daily, # 30 tab(s), Refills(s) 11, Pharmacy: [facility]/pharmacy #[id number], 180, cm, 02/25/22 14:22:00 EDT, Height/Length Dosing, 135, kg, 02/25/22 14:22:00 EDT, Weight Dosing Start Date: 02/25/22 Status: Ordered tadalafil 20 mg oral tablet (3 sources) Phosphodiesterase 5 Inhibitor Start: 10-23-2021 take 1 tablet by mouth once daily Cialis 20 mg Tab 20 mg = 1 tab(s), Oral, Daily, # 30 tab(s), Refills(s) 6, Pharmacy: [facility]/pharmacy #[id number], 180, cm, 10/22/21 14:56:00 EDT, Height/Length Dosing, 135, kg, 10/22/21 14:56:00 EDT, Weight Dosing Start Date: 10/23/21 Status: Ordered Start: 01-02-2018 take 1 tablet by isa once daily Tadalafil (Cialis) 10 mg Tablet Active 10 MG PO Daily January 02, 2018 9:35am tamsulosin hydrochloride 0.4 mg oral capsule (4 sources) alpha-Adrenergic Reilly Start: 04-11-2023 take 1 capsule by mouth once daily tamsulosin 0.4 mg Cap 0.4 mg = 1 cap(s), Oral, Daily, # 90 cap(s), Refills(s) 3, Pharmacy: [facility]/pharmacy #[id number], 180, cm, 04/11/23 11:56:00 EDT, Height/Length Dosing, 127, kg, 04/11/23 11:56:00 EDT, Weight Dosing Start Date: 04/11/23 Status: Ordered Start: 11-12-2021 tamsulosin 0.4 mg Cap Refills(s) 0 Start Date: 11/12/21 Status: Ordered Start: 01-08-2018 End: 09-02-2019 Tamsulosin Active 0.4 MG PO Every morning September 02, 2019 12:43pm administer 30 minutes after same meal each day; swallow whole with liquid; do not crush/chew/dissolve/open Completed/Discontinued Medications Medication Drug Class(es) Dates Sig (Normalized) Sig (Original) acetaminophen 325 mg / oxyCODONE hydrochloride 5 mg oral tablet (1 source) Opioid Agonist Start: 01-02-2018 End: 09-02-2019 take 1 tablet by mouth three times daily Oxycodone-Acetamin ophen Discontinued 1 TAB PO Three times daily January 02, 2018 9:35am September 02, 2019 12:41pm diphenhydrAMINE hydrochloride 25 mg / ibuprofen 200 mg oral capsule (1 source) Histamine-1 Receptor Antagonist, Nonsteroidal Anti-inflammatory Drug Start: 09-02-2019 End: 09-02-2019 take 2 capsules by mouth once daily at bedtime Ibuprofen-Diphenhy dramine Hcl (Advil Pm Liqui-Gels) 200-25 mg Capsule Discontinued 2 CAP PO Daily at bedtime September 02, 2019 12:45pm September 02, 2019 12:46pm ibuprofen 200 mg oral capsule (1 source) Nonsteroidal Anti-inflammatory Drug Start: 09-02-2019 End: 09-02-2019 Ibuprofen (Advil Liqui-Gel) 200 mg Capsule Discontinued 400 MG PO Every morning September 02, 2019 12:45pm September 02, 2019 12:46pm traZODone hydrochloride 50 mg oral tablet (1 source) Serotonin Reuptake Inhibitor Start: 01-02-2018 End: 09-02-2019 Trazodone Discontinued TABLET January 02, 2018 9:35am September 02, 2019 12:43pm triamcinolone acetonide 1 mg/ml topical cream (1 source) Corticosteroid Start: 05-25-2021 triamcinolone topical 0.1% cream 1 keke, Topical, BID, Refill(s) 0 Start Date: 05/25/21 Status: Ordered Problems Active Problems Problem Classification Problem Date Documented Da te Episodic/Chronic Allergic reactions (4 sources) Eczema; Translations: [Solar degeneration] 02-10-2019 Episodic Anxiety disorders (1 source) Anxiety disorder, unspecified; Translations: [ANXIETY DISORDER UNSPECIFIED] Onset: 08-01-2022 Chronic Calculus of urinary tract (13 sources) Kidney stone; Translations: [Calculus of kidney] Onset: 10-31-2021 Episodic Congestive heart failure; nonhypertensive (1 source) Unspecified diastolic (congestive) heart failure; Translations: [UNSPECIFIED DIASTOLIC HEART FAILURE] Onset: 05-17-2022 Chronic Coronary atherosclerosis and other heart disease (3 sources) Coronary atherosclerosis; Translations: [Atherosclerotic heart disease of [place] coronary artery without angina pectoris] Onset: 11-05-2021 05-25-2021 Chronic Diabetes mellitus without complication (1 source) Type 2 diabetes mellitus without complications; Translations: [TYPE 2 DM WITHOUT COMPLICATIONS] Onset: 05-17-2022 Chronic Diabetes mellitus without complication (1 source) Other abnormal glucose; Translations: [OTHER ABNORMAL GLUCOSE] Onset: 05-17-2022 Episodic Disorders of lipid metabolism (2 sources) Pure hypercholesterolemia , unspecified; Translations: [Hyperlipidemia, unspecified] Onset: 05-17-2022 Chronic Esophageal disorders (1 source) Gastro-esophageal reflux disease without esophagitis; Translations: [GERD WITHOUT ESOPHAGITIS] Onset: 08-01-2022 Chronic Essential hypertension (3 sources) Hypertensive disorder; Translations: [Essential (primary) hypertension] Onset: 08-01-2022 02-10-2019 Chronic Genitourinary symptoms and ill-defined conditions (6 sources) Post-micturition incontinence ; Translations: [Urge incontinence of urine] Onset: 11-05-2021 01-24-2020 Chronic Genitourinary symptoms and ill-defined conditions (8 sources) Nocturia; Translations: [Nocturia] Onset: 11-05-2021 Episodic Gout and other crystal arthropathies (1 source) Gout, unspecified; Translations: [GOUT UNSPECIFIED] Onset: 08-01-2022 Chronic Hyperplasia of prostate (5 sources) Benign prostatic hypertrophy with outflow obstruction; Translations: [Benign prostatic hyperplasia with lower urinary tract symptoms] Onset: 11-05-2021 Chronic Hypertension with complications and secondary hypertension (1 source) Hypertensive heart disease with heart failure; Translations: [HTN HEART DISEASE W/HEART FAIL] Onset: 05-17-2022 Chronic Joint disorders and dislocations; trauma-related (2 sources) Acetabular labrum tear 02-10-2019 Chronic Joint disorders and dislocations; trauma-related (2 sources) Tear of meniscus of knee 02-10-2019 Episodic Nonspecific chest pain (4 sources) Chest pain, unspecified; Translations: [CHEST PAIN UNSPECIFIED] Onset: 07-26-2022 Episodic Osteoarthritis (1 source) Unspecified osteoarthritis, unspecified site; Translations: [UNSPECIFIED OSTEOARTHRITIS UNS SITE] Onset: 08-01-2022 Chronic Other 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) 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; Translations: [DETENTION CURRENT USE OF ASPIRIN] Onset: 08-01-2022 Episodic Other 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) Other mcfp (current) 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; Translations: [OTH DETENTION CURRENT DRUG THERAPY] Onset: 08-01-2022 Episodic Other connective tissue disease (1 source) Presence of right artificial knee joint; Translations: [PRESENCE RT ARTIFICIAL KNEE JOINT] Onset: 11-12-2021 Chronic Other gastrointestinal disorders (2 sources) Occult blood in stools 02-10-2019 Episodic Other hereditary and degenerative nervous system conditions (2 sources) Essential tremor 05-25-2021 Chronic Other hereditary and degenerative nervous system conditions (1 source) Essential tremor; Translations: [ESSENTIAL TREMOR] Onset: 08-01-2022 Chronic Other inflammatory condition of skin (2 sources) Lichen simplex chronicus 05-25-2021 Episodic Other lower respiratory disease (1 source) Shortness of breath; Translations: [SHORTNESS OF BREATH] Onset: 08-01-2022 Episodic Other lower respiratory disease (1 source) Dyspnea, unspecified; Translations: [DYSPNEA UNSPECIFIED] Onset: 05-17-2022 Episodic Other male genital disorders (3 sources) Male erectile dysfunction, unspecified; Translations: [Erectile dysfunction] Onset: 11-05-2021 Chronic Other male genital disorders (2 sources) Impotence 01-24-2020 Chronic Other non-epithelial cancer of skin (5 sources) Basal cell carcinoma of lower extremity; Translations: [Basal cell carcinoma of skin] Onset: 08-01-2022 05-29-2021 Episodic Other nutritional; endocrine; and metabolic disorders (2 sources) Body mass index 40+ - severely obese 06-16-2019 Chronic Other nutritional; endocrine; and metabolic disorders (2 sources) Obesity 02-10-2019 Chronic Other nutritional; endocrine; and metabolic disorders (1 source) Body mass index (BMI) 40.0-44.9, adult; Translations: [BODY MASS INDEX BMI 40.0-44.9 ADULT] Onset: 11-12-2021 Chronic Other nutritional; endocrine; and metabolic disorders (1 source) Morbid (severe) obesity due to excess calories; Translations: [MORBID SEVERE OBES D/T EXCESS HANNAH] Onset: 11-12-2021 Chronic Other nutritional; endocrine; and metabolic disorders (1 source) Obesity, unspecified; Translations: [OBESITY UNSPECIFIED] Onset: 11-05-2021 Chronic Other screening for suspected conditions (not mental disorders or infectious disease) (1 source) Encounter for screening for malignant neoplasm of prostate; Translations: [ENC SCREEN MALIG NEOPLASM PROSTATE] Onset: 05-17-2022 Episodic Other skin disorders (2 sources) Actinic keratosis 05-25-2021 Episodic Residual codes; unclassified (2 sources) History of arthroscopy of knee joint 02-10-2019 Episodic Screening and history of mental health and substance abuse codes (1 source) Personal history of nicotine dependence; Translations: [PERSONAL HISTORY OF NICOTINE DEPEND] Onset: 08-01-2022 Episodic Spondylosis; intervertebral disc disorders; other back problems (4 sources) Other dorsalgia; Translations: [OTHER DORSALGIA] Onset: 05-15-2022 Episodic Unclassified (1 source) CONTACT W/AND (SUSP) EXPOS COVID-19; Translations: [CONTACT W/AND (SUSP) EXPOS COVID-19] Onset: 08-01-2022 Past or Other Problems Problem Classification Problem Date Documented Date Episodic/Chronic Abdominal pain (3 sources) Unspecified abdominal pain; Translations: [UNSPECIFIED ABDOMINAL PAIN] Onset: 02-18-2022 Episodic Other 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) 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; Translations: [URBAN REDEVELOPMENT SPECIALIST CURRNT USE ANTICOAGULANTS] Onset: 11-05-2021 Episodic Other diseases of kidney and ureters (1 source) Hydronephrosis with renal and ureteral calculous obstruction; Translations: [HYDRONPHROS RENL AND URETRL CALCUL OBST] Onset: 02-20-2022 Episodic Other nervous system disorders (1 source) Tremor, unspecified; Translations: [TREMOR UNSPECIFIED] Onset: 02-19-2022 Episodic Residual codes; unclassified (1 source) Other specified postprocedural states; Translations: [OTH SPECIFIED POSTPROCEDURAL STATES] Onset: 11-07-2021 Episodic Results Test Name Value Interpretation Reference Range Facility Ambulatory Visit Summaryon 0 04-11-2023 Ambulatory Visit Summary TOM APARICIO :1950 Visit Date:04/11/2023 Ambulatory Visit Instructions Your Diagnosis BPH with urinary obstruction Kidney stone Nocturia Impotence Tests Performed Urnls Dip Stick Auto w/o Microscopy POC [id number] Your Care Team Attending Physician - THOR BATISTA, Miki Cedeño Primary Care Physician - Marielle Lerma MD This Is Your Medications List allopurinol (allopurinol 300 mg Tab) hydrochlorothiazide (hydrochlorothiazide 12.5 mg Cap) potassium citrate (potassium CITRATE 10 mEq ER Tab) sodium bicarbonate (sodium bicarbonate 650 mg Tab) solifenacin (Vesicare 10 mg Tab) tadalafil (Cialis 20 mg Tab) tamsulosin (tamsulosin 0.4 mg Cap) Contact prescribing physician if questions or concerns acetaminophen-hydrocodone (acetaminophen-hydrocodon e 325 mg-5 mg oral tablet) aspirin (aspirin 81 mg oral tablet) clonidine (cloNIDine 0.1 mg tab) colchicine (colchicine 0.6 mg Tab) lisinopril (lisinopril 40 mg Tab) meclizine (meclizine 25 mg Tab) meloxicam (Mobic 15 mg Tab) primidone (primidone 50 mg Tab) simvastatin (simvastatin 20 mg Tab) [Image Removed: STOP]Stop taking these medications potassium chloride (Potassium Chloride (Eqv-K-Tab) 20 mEq oral tablet, extended release) Procedures Performed Cystoscopy (11/21/2021), Cystoscopy (11/06/2021), Colonoscopy (11/08/2013), Arthroplasty of the knee, Arthroscopic knee procedure, Basal cell carcinoma, Lithotripsy, Nose reconstruction, Repair of umbilical hernia, Rotator cuff repair, Wide excision. Discharge Vitals Heart Rate (Peripheral) 80 Respiratory Rate 16 Blood Pressure 134/76 Height 180 cm Height 71 in Weight 127 kg Weight 279.4 lb BMI 39.2 What to do next Scheduled Follow-Up Appointments Friday 11:00 AM EDT With: THOR BATISTA, Miki Cedeño Where: [facility] Patient Educationon 04-11-20 23 Patient Education Nephrology Dietary Guidelines to Help Prevent Kidney Stones Kidney stones are deposits of minerals and salts that form inside your kidneys. Your risk of developing kidney stones may be greater depending on your diet, your lifestyle, the medicines you take, and whether you have certain medical conditions. Most people can lower their chances of developing kidney stones by following the instructions below. Your dietitian may give you more specific instructions depending on your overall health and the type of kidney stones you tend to develop. What are tips for following this plan? Reading food labels ? Choose foods with no salt added or low-salt labels. Limit your salt (sodium) intake to less than 1,500 mg a day. ? Choose foods with calcium for each meal and snack. Try to eat about 300 mg of calcium at each meal. Foods that contain 200?500 mg of calcium a serving include: ? 8 oz (237 mL) of milk, lzypuyd-gqrfdgnjcwlv-gpvo y milk, and calcium-fortifiedfruit juice. Calcium-fortified means that calcium has been added to these drinks. ? 8 oz (237 mL) of kefir, yogurt, and soy yogurt. ? 4 oz (114 g) of tofu. ? 1 oz (28 g) of cheese. ? 1 cup (150 g) of dried figs. ? 1 cup (91 g) of cooked broccoli. ? One 3 oz (85 g) can of sardines or mackerel. Most people need 1,000?1,500 mg of calcium a day. Talk to your dietitian about how much calcium is recommended for you. Shopping ? Buy plenty of fresh fruits and vegetables. Most people do not need to avoid fruits and vegetables, even if these foods contain nutrients that may contribute to kidney stones. ? When shopping for convenience foods, choose: ? Whole pieces of fruit. ? Pre-made salads with dressing on the side. ? Low-fat fruit and yogurt smoothies. ? Avoid buying frozen meals or prepared deli foods. These can be high in sodium. ? Look for foods with live cultures, such as yogurt and kefir. ? Choose high-fiber grains, such as whole-wheat breads, oat bran, and wheat cereals. Cooking ? Do not add salt to food when cooking. Place a salt shaker on the table and allow each person to add his or her own salt to taste. ? Use vegetable protein, such as beans, textured vegetable protein (TVP), or tofu, instead of meat in pasta, casseroles, and soups. Meal planning ? Eat less salt, if told by your dietitian. To do this: ? Avoid eating processed or pre-made food. ? Avoid eating fast food. ? Eat less animal protein, including cheese, meat, poultry, or fish, if told by your dietitian. To do this: ? Limit the number of times you have meat, poultry, fish, or cheese each week. Eat a diet free of meat at least 2 days a week. ? Eat only one serving each day of meat, poultry, fish, or seafood. ? When you prepare animal protein, cut pieces into small portion sizes. For most meat and fish, one serving is about the size of the palm of your hand. ? Eat at least five servings of fresh fruits and vegetables each day. To do this: ? Keep fruits and vegetables on hand for snacks. ? Eat one piece of fruit or a handful of berries with breakfast. ? Have a salad and fruit at lunch. ? Have two kinds of vegetables at dinner. ? Limit foods that are high in a substance called oxalate. These include: ? Spinach (cooked), rhubarb, beets, sweet potatoes, and [place] chard. ? Peanuts. ? Potato chips, bruneian fries, and baked potatoes with skin on. ? Nuts and nut products. ? Chocolate. ? If you regularly take a diuretic medicine, make sure to eat at least 1 or 2 servings of fruits or vegetables that are high in potassium each day. These include: ? Avocado. ? Banana. ? [place], prune, carrot, or tomato juice. ? Baked potato. ? Cabbage. ? Beans and split peas. Lifestyle ? Drink enough fluid to keep your urine pale yellow. This is the most important thing you can do. Spread your fluid intake throughout the day. ? If you drink alcohol: ? Limit how much you use to: ? 0?1 drink a day for women who are not . ? 0?2 drinks a day for men. ? Be aware of how much alcohol is in your drink. In the [place] one drink equals one 12 oz bottle of beer (355 mL), one 5 oz glass of wine (148 mL), or one 1? oz glass of hard liquor (44 mL). ? Lose weight if told by your health care provider. Work with your dietitian to find an eating plan and weight loss strategies that work best for you. General information ? Talk to your health care provider and dietitian about taking daily supplements. You may be told the following depending on your health and the cause of your kidney stones: ? Not to take supplements with vitamin C. ? To take a calcium supplement. ? To take a daily probiotic supplement. ? To take other supplements such as magnesium, fish oil, or vitamin B6. ? Take nuye-qob-asrfype and prescription medicines only as told by your health care provider. These include supplements. What foods should I limit? Limit your in (more content not included)... Normal [facility] Urology Office/Clinic Noteon 04-11-2023 Urology Office/Clinic Note Chief Complaint 6m Renal US HPI Staff 6 month f/u with renal US. Previous dx of BPH with urinary obstruction, kidney stone, nocturia and impotence. Renal US done 04/01/23 shows cortical thickening of both kidneys, no hydronephrosis and tiny punctate calcifications in the left kidney. Tadalafil 20mg PRN, VESIcare 10mg qd Tamsulosin 0.4mg BID, Allopurinol 300mg qd Sodium Bicarb 650mg qd and Hydrochlorothiazide 12.5mg qd therapy. Denies pain/burning and visible blood in urine. Does not feel like VESIcare is improving frequency, emptying. Believes Myrbetriq worked better. Was switched due to cost. Pt would like to discuss possibly switching back. Still getting up 3x/night to void. q2hrs during the day. Occasional double voids. Denies troubles with urinary stream. Would like to discuss the HCTZ therapy. Interested in stopping the med. Causes dry mouth. Denies symptoms of kidney stone. Cialis is working well. History of Present Illness Tests reviewed: reviewed UA and LUIS. I have reviewed the previous health record information and history for this patient from . I have reviewed and verified the staff HPI to be accurate for this encounter. There have been no associated fever, chills, flank pain, or blood in the urine. Denies any urinary infections since last encounter. Review of Systems PHQ Score Initial Depression Screen Score: 0 ROS - Provider Constitutional: denies weight loss, denies hot flashes. Eyes: denies eye problems. Gastrointestinal: denies nausea, denies vomiting. Cardiovascular: denies chest pain or angina. Integumentary: no dryness Musculoskeletal: denies musculoskeletal symptoms. ENMT: denies otolaryngeal symptoms. Respiratory: no shortness of breath. Heme/Lymph: denies easy bleeding tendency, denies easy bruising tendency. Psychiatric: no confusion, no anxiety. Genitourinary: See HPI. Physical Exam Vitals & Measurements HR: 80(Peripheral) RR: 16 BP: 134/76 HT: 71 in HT: 180 cm WT: 127 kg WT: 279.4 lb BMI: 39.2 General Appearance: alert, no distress, well nourished, well developed male. Assessment/Plan 1. BPH with urinary obstruction (N40.1: Benign prostatic hyperplasia with lower urinary tract symptoms) Good, steady stream. UA done today is negative for blood and infection. Patient on Tamsulosin 0.4mg BID therapy. Patient to continue medication. He will call office if he needs refills. PSA 05/25/20 - 0.42 UA today is negative for blood and infection. Pt states that his PCP manages his PSA levels, and they get done every year, states that the levels have been good. 2. Kidney stone (N20.0: Calculus of kidney) XR IVP done 07/18/2022 was negative. Urine pH today was 5.5, and was 6.5 in 02/2022. Pt states he takes his medications before bedtime which seems to have helped sxs. Pt states he had blood work done in 05/[address] Lerma and his metabolic profile was all normal. S/p Cysto, basket extraction by Dr. Fry on 02/18/22. LUIS 04/01/23 - cortical thickening of both kidneys, no hydronephrosis and tiny punctate calcifications in the left kidney. Pt is currently taking Allopurinol 300mg QD, sodium bicarbonate 650mg QD, and HCTZ 12.5mg QD therapy, interested in stopping the med, causes dry mouth. Advised pt that the dry mouth may be caused by his blood pressure meds or his VESIcare. Advised that the new dose change of VESIcare (see #3) could help. Denies symptoms of kidney stone. Pt states he discussed taking 1 tab of potassium w/ his PCP. Advised pt to discontinue the potassium from his PCP and start Potassium Citrate 10 mEq 1 tab BID. Pt states he would be okay with doing this. Follow up in 1 yr. All questions/concerns were discussed. Pt to call the office if he encounters any issues prior. Pt acknowledges understanding. -Start Potassium Citrate 10 mEq 1 tab BID. Discussed the medication side effects, and the patient will monitor closely for these, as well as for symptom improvement. If severe side effects occur, the medication should be stopped and the office notified. 3. Nocturia (R35.1: Nocturia) Pt is currently taking VESIcare 10mg qd therapy. Pt states that he prefers the Myrbetriq compared to the VESIcare. Still getting up 3x/night to void. q2hrs during the day. Occasional double voids. Advised pt that the Myrbetriq is still costly. Pt states that he feels like he may not be emptying all of the way, and is no longer feeling the urgency. Advised pt that the VESIcare is doing it's job, maybe too well. Discussed taking the VESIcare every other day. -Start taking VESIcare QOD. 4. Impotence (N52.9: Male erectile dysfunction, unspecified) Pt to continue Tadalafil 20mg PRN therapy, states that this is working well, and will call if he needs refills. Follow-up With When Contact Information Miki ZENG MD, AMRIK In 1 year [facility] [address], [place] [address]- Additional Instructions: Patient Education Dietary Guidelines to Help Prevent Kidney Stone (more content not included)... Normal [facility] Comment on above: Result Comment: Elec tronically Signed By: Miki ZENG MD\.br\Date and Time Signed: 04/11/23 12:49 EDT\.br\Electronically Co-Signed By: Sherice Cloud\.br\Date and Time Co-Signed: 04/11/23 12:48 EDT RAD - Ultrasound Reporton RAD - Ultrasound Report [id number]:12 7 [facility] RAD - Ultrasound Report [id number]#[id number]:12 7 [facility] Screenson 08-20-2022 Screens [id number]#[id number]:12 7 [facility] Ambulatory Visit Summaryon 0 08-19-2022 Ambulatory Visit Summary TOM APARICIO :1950 Visit Date:08/19/2022 Ambulatory Visit Instructions Your Diagnosis BPH with urinary obstruction Kidney stone Nocturia Impotence Other obstructive and reflux uropathy Tests Performed Urnls Dip Stick Auto w/o Microscopy POC 24277 US Renal -- Results Pending -- Please visit your patient portal for your results or contact your primary care physician. Your Care Team Attending Physician - THOR BATISTA, Miki Cedeño Primary Care Physician - Marielle Lerma MD This Is Your Medications List allopurinol (allopurinol 300 mg Tab) hydrochlorothiazide (hydrochlorothiazide 12.5 mg Cap) sodium bicarbonate (sodium bicarbonate 650 mg Tab) solifenacin (Vesicare 10 mg Tab) Contact prescribing physician if questions or concerns acetaminophen-hydrocodone (acetaminophen-hydrocodon e 325 mg-5 mg oral tablet) aspirin (aspirin 81 mg oral tablet) clindamycin topical (Clindagel 1% topical gel) clonidine (cloNIDine 0.1 mg tab) colchicine (colchicine 0.6 mg Tab) hyoscyamine (hyoscyamine 0.125 mg oral Tab) lisinopril (lisinopril 40 mg Tab) meclizine (meclizine 25 mg Tab) meloxicam (Mobic 15 mg Tab) potassium chloride (Potassium Chloride (Eqv-K-Tab) 20 mEq oral tablet, extended release) primidone (primidone 50 mg Tab) simvastatin (simvastatin 20 mg Tab) tadalafil (Cialis 20 mg Tab) tamsulosin (tamsulosin 0.4 mg Cap) triamcinolone topical (triamcinolone topical 0.1% cream) Procedures Performed Cystoscopy (11/21/2021), Cystoscopy (11/06/2021), Colonoscopy (11/08/2013), Arthroplasty of the knee, Arthroscopic knee procedure, Basal cell carcinoma, Lithotripsy, Nose reconstruction, Repair of umbilical hernia, Rotator cuff repair, Wide excision. Discharge Vitals Heart Rate (Peripheral) 72 Respiratory Rate 16 Blood Pressure 134/88 Height 180 cm Height 71 in Weight 136.2 kg Weight 299.64 lb BMI 42.04 What to do next Scheduled Follow-Up Appointments Friday 2:30 PM EDT With: THOR BATISTA, Miki Cedeño Where: [facility] Patient Educationon 08-19-19 Patient Education Urology Benign Prostatic Hyperplasia Benign prostatic hyperplasia (BPH) is an enlarged prostate gland that is caused by the normal aging process and not by cancer. The prostate is a walnut-sized gland that is involved in the production of semen. It is located in front of the rectum and below the bladder. The bladder stores urine and the urethra is the tube that carries the urine out of the body. The prostate may get bigger as a man gets older. An enlarged prostate can press on the urethra. This can make it harder to pass urine. The build-up of urine in the bladder can cause infection. Back pressure and infection may progress to bladder damage and kidney (renal) failure. What are the causes? This condition is part of a normal aging process. However, not all men develop problems from this condition. If the prostate enlarges away from the urethra, urine flow will not be blocked. If it enlarges toward the urethra and compresses it, there will be problems passing urine. What increases the risk? This condition is more likely to develop in men over the age of 50 years. What are the signs or symptoms? Symptoms of this condition include: ? Getting up often during the night to urinate. ? Needing to urinate frequently during the day. ? Difficulty starting urine flow. ? Decrease in size and strength of your urine stream. ? Leaking (dribbling) after urinating. ? Inability to pass urine. This needs immediate treatment. ? Inability to completely empty your bladder. ? Pain when you pass urine. This is more common if there is also an infection. ? Urinary tract infection (UTI). How is this diagnosed? This condition is diagnosed based on your medical history, a physical exam, and your symptoms. Tests will also be done, such as: ? A post-void bladder scan. This measures any amount of urine that may remain in your bladder after you finish urinating. ? A digital rectal exam. In a rectal exam, your health care provider checks your prostate by putting a lubricated, gloved finger into your rectum to feel the back of your prostate gland. This exam detects the size of your gland and any abnormal lumps or growths. ? An exam of your urine (urinalysis). ? A prostate specific antigen (PSA) screening. This is a blood test used to screen for prostate cancer. ? An ultrasound. This test uses sound waves to electronically produce a picture of your prostate gland. Your health care provider may refer you to a specialist in kidney and prostate diseases (urologist). How is this treated? Once symptoms begin, your health care provider will monitor your condition (active surveillance or watchful waiting). Treatment for this condition will depend on the severity of your condition. Treatment may include: ? Observation and yearly exams. This may be the only treatment needed if your condition and symptoms are mild. ? Medicines to relieve your symptoms, including: ? Medicines to shrink the prostate. ? Medicines to relax the muscle of the prostate. ? Surgery in severe cases. Surgery may include: ? Prostatectomy. In this procedure, the prostate tissue is removed completely through an open incision or with a laparoscope or robotics. ? Transurethral resection of the prostate (TURP). In this procedure, a tool is inserted through the opening at the tip of the penis (urethra). It is used to cut away tissue of the inner core of the prostate. The pieces are removed through the same opening of the penis. This removes the blockage. ? Transurethral incision (TUIP). In this procedure, small cuts are made in the prostate. This lessens the prostate's pressure on the urethra. ? Transurethral microwave thermotherapy (TUMT). This procedure uses microwaves to create heat. The heat destroys and removes a small amount of prostate tissue. ? Transurethral needle ablation (TUNA). This procedure uses radio frequencies to destroy and remove a small amount of prostate tissue. ? Interstitial laser coagulation (ILC). This procedure uses a laser to destroy and remove a small amount of prostate tissue. ? Transurethral electrovaporization (TUVP). This procedure uses electrodes to destroy and remove a small amount of prostate tissue. ? Prostatic urethral lift. This procedure inserts an implant to push the lobes of the prostate away from the urethra. Follow these instructions at home: ? Take crng-xqh-xktoscb and prescription medicines only as told by your health care provider. ? Monitor your symptoms for any changes. Contact your health care provider with any changes. ? Avoid drinking large amounts of liquid before going to bed or out in public. ? Avoid or reduce how much caffeine or alcohol you drink. ? Give yourself time when you urinate. ? Keep all follow-up visits as told by your health care provider. This is important. Contact a health care provider if: ? You have unexplained back pain. ? Your symptoms do not get better with treatment. ? You d (more content not included)... Normal [facility] Urology Office/Clinic Noteon 08-19-2022 Urology Office/Clinic Note Chief Complaint 6 month f/u with IVP HPI Staff Pt is here for 6 month f/u with IVP. Previous dx of BPH with urinary obstruction, kidney stone, nocturia and organic impotence. IVP done 07/18/22 showed no visible urinary tract calculi. IPSS score is 4. Dysuria: no Incomplete bladder emptying: no Hematuria: no Frequency: less than 1 in 5x per IPSS Urgency: no Nocturia: 2x Stream: good stream no straining Leaking: no Post void dripping: no Wearing pads/ Depends: no Urge incontinence: no Stress incontinence: no Incontinence without Sensory Awareness: no Abdominal pain: no Flank pain: no Sexual complaints: no History of Present Illness Tests reviewed: reviewed UA I have reviewed the previous health record information and history for this patient from Dr. Zeng. I have reviewed and verified the staff HPI to be accurate for this encounter. There have been no associated fever, chills, flank pain, or blood in the urine. Denies any urinary infections since last encounter. Review of Systems PHQ Score Initial Depression Screen Score: 0 ROS - Provider Constitutional: denies weight loss, denies hot flashes. Eyes: denies eye problems. Gastrointestinal: denies nausea, denies vomiting. Cardiovascular: denies chest pain or angina. Integumentary: no dryness Musculoskeletal: denies musculoskeletal symptoms. ENMT: denies otolaryngeal symptoms. Respiratory: no shortness of breath. Heme/Lymph: denies easy bleeding tendency, denies easy bruising tendency. Psychiatric: no confusion, no anxiety. Genitourinary: denies dysuria, denies hematuria, denies discharge, denies urinary frequency, denies urinary hesitancy, denies nocturia, denies incontinence, denies genital sores, denies decreased libido, and denies erectile dysfunction. Physical Exam Vitals & Measurements HR: 72(Peripheral) RR: 16 BP: 134/88 HT: 71 in HT: 180 cm WT: 136.2 kg WT: 299.64 lb BMI: 42.04 General Appearance: alert, no distress, well nourished, well developed male. Genitourinary: normal scrotum, normal testes, normal urethra, normal epididymis, normal vas deferens/spermatic cord. Flank Pain: none. Bladder: nonpalpable. Assessment/Plan 1. BPH with urinary obstruction (N40.1: Benign prostatic hyperplasia with lower urinary tract symptoms) Good, steady stream. UA done today is negative for blood and infection. Patient on Tamsulosin 0.4mg BID therapy. Patient to continue medication. He will call office if he needs refills. Most recent PSA 0.42 done 05/25/2020. 2. Kidney stone (N20.0: Calculus of kidney) XR IVP done 07/18/2022 was negative. Urine pH today was 5.5, and was 6.5 in 02/2022. Pt states he takes his medications before bedtime which seems to have helped sxs. Pt states he had blood work done in 05/[address] Lerma and his metabolic profile was all normal. S/p Cysto, basket extraction by Dr. Fry on 02/18/22. Pt to continue Allopurinol 300mg qd and HCTZ 12.5mg qd therapy. Pt is still taking sodium bicarbonate 650mg. All questions/concerns were discussed. Pt to call our office if he encounters any issues prior. He acknowledges understanding. Will follow up w/ renal US in 6 months. 3. Nocturia (R35.1: Nocturia) Mild, 2-3 times per night. Pt to continue Vesicare 10mg qd therapy. 4. Impotence (N52.9: Male erectile dysfunction, unspecified) Pt to continue Tadalafil 20mg prn therapy and will call if he needs refills. Other obstructive and reflux uropathy (N13.8: Other obstructive and reflux uropathy) Follow-up With When Contact Information Miki ZENG MD, AMRIK In 6 months [facility] [address], [place] [address]- [phone] Additional Instructions: w/ renal US Patient Education Benign Prostatic Hyperplasia I, Brenda Lopez, personally scribed for Dr. Zeng on 08/19/2022 10:37:52. . Documentation recorded by the scribeBrenda, accurately reflects the services(s) I performed and decisions made by me. Authenticated by Dr. Zeng on 08/19/2022 10:44:46. Problem List/Past Medical History Ongoing Acetabular labrum tear Actinic keratosis Atherosclerotic heart disease Basal cell carcinoma Basal cell carcinoma of left lower leg Benign essential tremor BMI 40.0-44.9, adult BPH with urinary obstruction Eczema History of arthroscopy of left knee History of kidney stones HTN (hypertension) Impotence Kidney stone Lichen simplex chronicus Nocturia Obesity Occult blood in stools Post-void dribbling Solar elastosis Tear of meniscus of left knee Urge incontinence Urgency of urination Historical No qualifying data Procedure/Surgical History Cystoscopy (11/21/2021), Cystoscopy (11/06/2021), Colonoscopy (11/08/2013), Arthroplasty of the knee, Arthroscopic knee procedure, Basal cell carcinoma, Lithotripsy, Nose reconstruction, Repair of umbilical hernia, Rotator cuff repair, Wide excision. Medications acetaminophen-h (more content not included)... Normal [facility] Comment on above: Result Comment: Elec tronically Signed By: Miki ZENG MD\.br\Date and Time Signed: 08/19/22 10:44 EST\.br\Electronically Co-Signed By: Brenda Lopez\.br\Date and Time Co-Signed: 08/19/22 10:38 EST CBC AUTO DIFFon 07-27-2022 BASO # 0.1 103/ul Normal 0.0-0.1 [facility] Comment on above: Performed By: #### U DINA, LIPID, TSH, BNP, CMP, T7 #### [facility] [address] [place] [address] Dr. Suzie Brooks Basophils/100 WBC (Bld) 0.5 % Normal 0.2-2.0 [facility] Comment on above: Performed By: #### U DINA, LIPID, TSH, BNP, CMP, T7 #### [facility] [address] [place] [address] Dr. Suzie Brooks EO # 0.4 103/ul Normal 0.0-0.7 [facility] Comment on above: Performed By: #### U DINA, LIPID, TSH, BNP, CMP, T7 #### [facility] [address] [place] [address] Dr. Suzie Brooks Eosinophils/100 WBC (Bld) 3.3 % Normal 0.9-7.0 [facility] Comment on above: Performed By: #### U DINA, LIPID, TSH, BNP, CMP, T7 #### [facility] [address] [place] [address] Dr. Suzie Brooks Erythrocyte distribution width (RBC) [Ratio] 14.6 % Normal 11.0-15.0 [facility] Comment on above: Performed By: #### U DINA, LIPID, TSH, BNP, CMP, T7 #### [facility] [address] [place] [address] Dr. Suzie Brooks Hematocrit (Bld) [Volume fraction] 42.0 % Normal 42.0-54.0 [facility] Comment on above: Performed By: #### U DINA, LIPID, TSH, BNP, CMP, T7 #### [facility] [address] [place] [address] Dr. Suzie Brooks Hemoglobin (Bld) [Mass/Vol] 14.1 g/dL Normal 14.0-18.0 [facility] Comment on above: Performed By: #### U DINA, LIPID, TSH, BNP, CMP, T7 #### [facility] [facility] [place] [facility] [address] [place] [address] Dr. Suzie Brooks IG # 0.03 10e3/ul Normal 0.00-0.03 [facility] [place] Comment on above: Performed By: #### U DINA, LIPID, TSH, BNP, CMP, T7 #### [facility] [place] [facility] [address] [place] [address] Dr. Suzie Brooks IG % 0.3 % Normal 0.0-0.5 [facility] Comment on above: Performed By: #### U DINA, LIPID, TSH, BNP, CMP, T7 #### [facility] [place] [facility] [address] [place] [address] Dr. Suzie Brooks LYMPH # 3.1 103/ul Normal 1.2-3.8 [facility] [place] Comment on above: Performed By: #### U DINA, LIPID, TSH, BNP, CMP, T7 #### [facility] [place] [facility] [address] [place] [address] Dr. Suzie Brooks Lymphocytes/100 WBC (Bld) 28.2 % Normal 20.5-60.0 [facility] Comment on above: Performed By: #### U DINA, LIPID, TSH, BNP, CMP, T7 #### [facility] [place] [facility] [address] [place] [address] Dr. Suzie Brooks MANUAL DIFF REQ NO Normal [facility] Comment on above: Performed By: #### U DINA, LIPID, TSH, BNP, CMP, T7 #### [facility] [place] [facility] [address] [place] [address] Dr. Suzie Brooks MCH (RBC) [Entitic mass] 28.5 pg Normal 25.9-34.0 [facility] Comment on above: Performed By: #### U DINA, LIPID, TSH, BNP, CMP, T7 #### [facility] [place] [facility] [address] [place] [address] Dr. Suzie Brooks MCHC (RBC) [Mass/Vol] 33.6 g/dL Normal 29.9-35.2 [facility] [place] Comment on above: Performed By: #### U DINA, LIPID, TSH, BNP, CMP, T7 #### [facility] [place] [facility] [address] [place] [address] Dr. Suzie Brooks MCV (RBC) [Entitic vol] 85.0 fL Normal 80.0-94.0 [facility] Comment on above: Performed By: #### U DINA, LIPID, TSH, BNP, CMP, T7 #### [facility] [place] [facility] [address] [place] [address] Dr. Suzie Brooks MONO # 0.8 103/ul Normal 0.3-0.8 [facility] [place] Comment on above: Performed By: #### U DINA, LIPID, TSH, BNP, CMP, T7 #### [facility] [place] [facility] [address] [place] [address] Dr. Suzie Brooks Monocytes/100 WBC (Bld) 7.2 % Normal 1.7-12.0 [facility] [place] Comment on above: Performed By: #### U DINA, LIPID, TSH, BNP, CMP, T7 #### [facility] [place] [facility] [address] [place] [address] Dr. Suzie Brooks NEUT # 6.7 103/ul Critically high 1.4-6.5 [facility] Comment on above: Performed By: #### U DINA, LIPID, TSH, BNP, CMP, T7 #### [facility] [place] [facility] [address] [place] [address] Dr. Suzie Brooks Neutrophils/100 WBC (Bld) 60.5 % Normal 43.0-75.0 [facility] [place] Comment on above: Performed By: #### U DINA, LIPID, TSH, BNP, CMP, T7 #### [facility] [place] [facility] [address] [place] [address] Dr. Suzie Brooks Platelet mean volume (Bld) [Entitic vol] 9.6 fL Normal 9.5-13.5 [facility] [place] Comment on above: Performed By: #### U DINA, LIPID, TSH, BNP, CMP, T7 #### [facility] [place] [facility] [address] [place] [address] Dr. Suzie Brooks PLT 266 103/ul Normal 150-450 [facility] [place] Comment on above: Performed By: #### U DINA, LIPID, TSH, BNP, CMP, T7 #### [facility] [place] [facility] [address] [place] [address] Dr. Suzie Brooks RBC 4.94 106/ul Normal 4.70-6.10 [facility] [place] Comment on above: Performed By: #### U DINA, LIPID, TSH, BNP, CMP, T7 #### [facility] [place] [facility] [address] [address] [address] Suzie Brooks WBC 11.1 103/ul Critically high 4.0-11.0 [facility] Comment on above: Performed By: #### U DINA, LIPID, TSH, BNP, CMP, T7 #### [facility] [place] [facility] [address] [address] [address] Suzie Brooks PROF 14(COMP METB)on 022 Albumin [Mass/Vol] 3.2 g/dL Critically low 3.4-5.0 [facility] Comment on above: Performed By: #### C VDTBH #### [facility] [place] [facility] [address] [place] [address] Dr. Suzie Brooks Albumin/Globulin [Mass ratio] 0.9 {ratio} Normal [facility] Comment on above: Performed By: #### C VDTBH #### [facility] [place] [facility] [address] [place] [address] Dr. Suzie Brooks ALP [Catalytic activity/Vol] 60 U/L Normal 46-116 [facility] Comment on above: Performed By: #### C VDTBH #### [facility] [place] [facility] [address] [place] [address] Dr. Suzie Brooks ALT [Catalytic activity/Vol] 27 U/L Normal 16-63 [facility] Comment on above: Performed By: #### C VDTBH #### [facility] [place] [facility] [address] [place] [address] Dr. Suzie Brooks Anion gap [Moles/Vol] 10.4 mmol/L Normal [facility] Comment on above: Performed By: #### C VDTBH #### [facility] [place] [facility] [address] [place] [address] Dr. Suzie Brooks AST [Catalytic activity/Vol] 23 U/L Normal 15-37 [facility] Comment on above: Performed By: #### C VDTBH #### [facility] [place] [facility] [address] [place] [address] Dr. Suzie Brooks Bilirubin [Mass/Vol] 0.4 mg/dL Normal 0.2-1.0 [facility] Comment on above: Performed By: #### C VDTBH #### [facility] [place] [facility] [address] [address] [address] Suzie Brooks Calcium [Mass/Vol] 8.4 mg/dL Critically low 8.5-10.1 Th [facility] Comment on above: Performed By: #### C VDTBH #### [facility] [place] [facility] [address] [place] [address] Dr. Suzie Brooks Chloride [Moles/Vol] 104 mmol/L Normal 98-107 [facility] Comment on above: Performed By: #### C VDTBH #### [facility] [place] [facility] [address] [address] [address] Suzie Brooks CO2 [Moles/Vol] 26.1 mmol/L Normal 21.0-32.0 [facility] Comment on above: Performed By: #### C VDTBH #### [facility] [place] [facility] [address] [place] [address] Dr. Suzie Brooks Creatinine [Mass/Vol] 0.90 mg/dL Normal 0.70-1.30 [facility] Comment on above: Performed By: #### C VDTBH #### [facility] [place] [facility] [address] [place] [address] Dr. Suzie Brooks EGFR-AF [place] >60 Normal >=60 [facility] Comment on above: Performed By: #### C VDTBH #### [facility] [place] [facility] [address] [place] [address] Dr. Suzie Brooks EGFR-NON AF [place] >60 Normal >=60 [facility] Comment on above: Performed By: #### C VDTBH #### [facility] [place] [facility] [address] [place] [address] Dr. Suzie Brooks Globulin (S) [Mass/Vol] 3.4 g/dL Normal [facility] Comment on above: Performed By: #### C VDTBH #### [facility] [place] [facility] [address] [place] [address] Dr. Suzie Brooks Glucose [Mass/Vol] 111 mg/dL Critically high 74-106 [facility] Comment on above: Performed By: #### C VDTBH #### [facility] [place] [facility] [address] [address] [address] Suzie Brooks Potassium [Moles/Vol] 3.5 mmol/L Normal 3.5-5.1 [facility] Comment on above: Performed By: #### C VDTBH #### [facility] [place] [facility] [address] [place] [address] Dr. Suzie Brooks Protein [Mass/Vol] 6.6 g/dL Normal 6.4-8.2 [facility] Comment on above: Performed By: #### C VDTBH #### [facility] [place] [facility] [address] [place] [address] Dr. Suzie Brooks Sodium [Moles/Vol] 137 mmol/L Normal 136-145 [facility] Comment on above: Performed By: #### C VDTBH #### [facility] [place] [facility] [address] [place] [address] Dr. Suzie Brooks Urea nitrogen [Mass/Vol] 13.0 mg/dL Normal 7.0-18.0 [facility] Comment on above: Performed By: #### C VDTBH #### [facility] [place] [facility] [address] [place] [address] Dr. Suzie Brooks Urea nitrogen/Creatinine [Mass ratio] 14.4 mg/mg Normal [facility] Comment on above: Performed By: #### C VDTBH #### [facility] [place] [facility] [address] [place] [address] Dr. Suzie Brooks BNPon 07-26-2022 Natriuretic peptide B (Bld) [Mass/Vol] 118.0 pg/mL Normal <=900.0 [facility] Comment on above: Performed By: #### U DINA, LIPID, TSH, BNP, CMP, T7 #### [facility] [place] [facility] [address] [place] [address] Dr. Suzie Brooks CARDIAC MJ 3-6on 2 CK [Catalytic activity/Vol] 240 U/L Normal 39-308 [facility] [place] Comment on above: Performed By: #### U DINA, LIPID, TSH, BNP, CMP, T7 #### [facility] [place] [facility] [address] [place], [place] [id number] Dr. Suzie Brooks CK.MB [Mass/Vol] 3.43 ng/mL Normal <=3.60 [facility] Comment on above: Performed By: #### U DINA, LIPID, TSH, BNP, CMP, T7 #### [facility] [place] [facility] [address] [address] [address] Suzie Brooks HSTROP 8.6 pg/mL Normal 4.0-76.1 [facility] [place] Comment on above: Result Comment: CUT- OFF POINTS HAVE BEEN ESTABLISHED BASED ON THE FOURTH UNIVERSAL DEFINITIONS OF MYOCARDIAL INFARCTION. THE UPPER REFERENCE LIMIT (URL) OF TROPONIN, DEFINED THE 99TH PERCENTILE OF cTnI DISTRIBUTION IN A REFERENCE POPULATION, HAS BEEN CONFIRMED THE DECISION THRESHOLD FOR HI DIAGNOSIS. Performed By: #### U DINA, LIPID, TSH, BNP, CMP, T7 #### [facility] [place] [facility] [address] [place] [address] Dr. Suzie Brooks CK [Catalytic activity/Vol] 239 U/L Normal 39-308 [facility] Comment on above: Performed By: #### M AG24 #### [facility] [place] [facility] [address] [place] [address] Dr. Suzie Brooks CK.MB [Mass/Vol] 2.93 ng/mL Normal <=3.60 [facility] Comment on above: Performed By: #### M AG24 #### [facility] [place] [facility] [address] [place] [address] Dr. Suzie Brooks HSTROP 10.4 pg/mL Normal 4.0-76.1 [facility] [place] Comment on above: Result Comment: CUT- OFF POINTS HAVE BEEN ESTABLISHED BASED ON THE FOURTH UNIVERSAL DEFINITIONS OF MYOCARDIAL INFARCTION. THE UPPER REFERENCE LIMIT (URL) OF TROPONIN, DEFINED THE 99TH PERCENTILE OF cTnI DISTRIBUTION IN A REFERENCE POPULATION, HAS BEEN CONFIRMED THE DECISION THRESHOLD FOR HI DIAGNOSIS. Performed By: #### M AG24 #### [facility] [place] [facility] [address] [place] [address] Dr. Suzie Brooks CARDIAC MJ ADMITon 07-26-2 022 CK [Catalytic activity/Vol] 234 U/L Normal 39-308 [facility] [place] Comment on above: Performed By: #### O [id number] #### [facility] [place] [facility] [address] [place] [address] Dr. Suzie Brooks CK.MB [Mass/Vol] 3.37 ng/mL Normal <=3.60 [facility] Comment on above: Performed By: #### O [id number] #### [facility] [place] [facility] [address] [place] [address] Dr. Suzie Brooks HSTROP 9.0 pg/mL Normal 4.0-76.1 [facility] [place] Comment on above: Result Comment: CUT- OFF POINTS HAVE BEEN ESTABLISHED BASED ON THE FOURTH UNIVERSAL DEFINITIONS OF MYOCARDIAL INFARCTION. THE UPPER REFERENCE LIMIT (URL) OF TROPONIN, DEFINED THE 99TH PERCENTILE OF cTnI DISTRIBUTION IN A REFERENCE POPULATION, HAS BEEN CONFIRMED THE DECISION THRESHOLD FOR HI DIAGNOSIS. Performed By: #### O [id number] #### [facility] [place] [facility] [address] [place] [address] Dr. Suzie Boroks EDIE 85 ng/mL Normal 16-96 [facility] [place] Comment on above: Performed By: #### O X24HR #### [facility] [place] [facility] [address] [place] [address] Dr. Suize Brooks CBC AUTO DIFFon 07-26-2022 BASO # 0.1 103/ul Normal 0.0-0.1 [facility] [place] Comment on above: Performed By: #### U DINA, LIPID, TSH, BNP, CMP, T7 #### [facility] [place] [facility] [address] [place] [address] Dr. Suzie Brooks Basophils/100 WBC (Bld) 0.4 % Normal 0.2-2.0 [facility] [place] Comment on above: Performed By: #### U DINA, LIPID, TSH, BNP, CMP, T7 #### [facility] [place] [facility] [address] [place] [address] Dr. Suzie Brooks EO # 0.3 103/ul Normal 0.0-0.7 [facility] [place] Comment on above: Performed By: #### U DINA, LIPID, TSH, BNP, CMP, T7 #### [facility] [place] [facility] [address] [place] [address] Dr. Suzie Brooks Eosinophils/100 WBC (Bld) 2.5 % Normal 0.9-7.0 [facility] [place] Comment on above: Performed By: #### U DINA, LIPID, TSH, BNP, CMP, T7 #### [facility] [place] [facility] [address] [place] [address] Dr. Suzie Brooks Erythrocyte distribution width (RBC) [Ratio] 14.4 % Normal 11.0-15.0 [facility] Comment on above: Performed By: #### U DINA, LIPID, TSH, BNP, CMP, T7 #### [facility] [place] [facility] [address] [place] [address] Dr. Suzie Brooks Hematocrit (Bld) [Volume fraction] 46.0 % Normal 42.0-54.0 [facility] Comment on above: Performed By: #### U DINA, LIPID, TSH, BNP, CMP, T7 #### [facility] [place] [facility] [address] [place] [address] Dr. Suzie Brooks Hemoglobin (Bld) [Mass/Vol] 15.6 g/dL Normal 14.0-18.0 [facility] Comment on above: Performed By: #### U DINA, LIPID, TSH, BNP, CMP, T7 #### [facility] [place] [facility] [address] [place] [address] Dr. Suzie Brooks IG # 0.07 10e3/ul Critically high 0.00-0.03 [facility] Comment on above: Performed By: #### U DINA, LIPID, TSH, BNP, CMP, T7 #### [facility] [place] [facility] [address] [place] [address] Dr. Suzie Brooks IG % 0.6 % Critically high 0.0-0.5 [facility] Comment on above: Performed By: #### U DINA, LIPID, TSH, BNP, CMP, T7 #### [facility] [place] [facility] [address] [place] [address] Dr. Suzie Brooks LYMPH # 2.9 103/ul Normal 1.2-3.8 [facility] [place] Comment on above: Performed By: #### U DINA, LIPID, TSH, BNP, CMP, T7 #### [facility] [place] [facility] [address] [place] [address] Dr. Suzie Brooks Lymphocytes/100 WBC (Bld) 24.2 % Normal 20.5-60.0 [facility] [place] Comment on above: Performed By: #### U DINA, LIPID, TSH, BNP, CMP, T7 #### [facility] [place] [facility] [address] [place] [address] Dr. Suzie Brooks MANUAL DIFF REQ NO Normal [facility] Comment on above: Performed By: #### U DINA, LIPID, TSH, BNP, CMP, T7 #### [facility] [place] [facility] [address] [place] [address] Dr. Suzie Brooks MCH (RBC) [Entitic mass] 28.6 pg Normal 25.9-34.0 [facility] [place] Comment on above: Performed By: #### U DINA, LIPID, TSH, BNP, CMP, T7 #### [facility] [place] [facility] [address] [place] [address] Dr. Suzie Brooks MCHC (RBC) [Mass/Vol] 33.9 g/dL Normal 29.9-35.2 [facility] [place] Comment on above: Performed By: #### U DINA, LIPID, TSH, BNP, CMP, T7 #### [facility] [place] [facility] [address] [place] [address] Dr. Suzie Brooks MCV (RBC) [Entitic vol] 84.4 fL Normal 80.0-94.0 [facility] [place] Comment on above: Performed By: #### U DINA, LIPID, TSH, BNP, CMP, T7 #### [facility] [place] [facility] [address] [place] [address] Dr. Suzie Brooks MONO # 0.8 103/ul Normal 0.3-0.8 [facility] [place] Comment on above: Performed By: #### U DINA, LIPID, TSH, BNP, CMP, T7 #### [facility] [place] [facility] [address] [place] [address] Dr. Suzie Brooks Monocytes/100 WBC (Bld) 6.7 % Normal 1.7-12.0 [facility] [place] Comment on above: Performed By: #### U DINA, LIPID, TSH, BNP, CMP, T7 #### [facility] [place] [facility] [address] [place] [address] Dr. Suzie Brooks NEUT # 7.8 103/ul Critically high 1.4-6.5 [facility] Comment on above: Performed By: #### U DINA, LIPID, TSH, BNP, CMP, T7 #### [facility] [place] [facility] [address] [address] [address] Suize Brooks Neutrophils/100 WBC (Bld) 65.6 % Normal 43.0-75.0 [facility] [place] Comment on above: Performed By: #### U DINA, LIPID, TSH, BNP, CMP, T7 #### [facility] [place] [facility] [address] [address] [address] Suzie Brooks Platelet mean volume (Bld) [Entitic vol] 9.7 fL Normal 9.5-13.5 [facility] Comment on above: Performed By: #### U DINA, LIPID, TSH, BNP, CMP, T7 #### [facility] [place] [facility] [address] [address] [address] Suzie Brooks PLT 289 103/ul Normal 150-450 [facility] [place] Comment on above: Performed By: #### U DINA, LIPID, TSH, BNP, CMP, T7 #### [facility] [place] [facility] [address] [address] [address] Suzie Brooks RBC 5.45 106/ul Normal 4.70-6.10 [facility] [place] Comment on above: Performed By: #### U DINA, LIPID, TSH, BNP, CMP, T7 #### [facility] [place] [facility] [address] [address] [address] Suzie Brooks WBC 11.9 103/ul Critically high 4.0-11.0 [facility] Comment on above: Performed By: #### U DINA, LIPID, TSH, BNP, CMP, T7 #### [facility] [place] [facility] [address] [place] [address] Dr. Suzie Brooks CTA CHEST WO W CONon 12-16-2 022 CTA CHEST WO W CON EXAMINATION: CTA EVA ST WO W CON HISTORY: CHEST PAIN, UNSPECIFIED ; acute right chest and jaw pain COMPARISON: No relevant comparison available. TECHNIQUE: Multi-planar CT images were created with IV contrast. Axial, Coronal, and Sagittal images. Dose reduction techniques were achieved by using automated exposure control and/or adjustment of mA and/or kV according to patient size and/or use of iterative reconstruction technique. 3-D reconstruction was performed on a separate workstation. FINDINGS: VASCULATURE: No pulmonary embolism or abnormal opacity. LUNGS: No visible pulmonary disease. PLEURA: No mass, effusion, or pneumothorax. SADE: No mass or adenopathy. MEDIASTINUM: No mass or adenopathy. CARDIAC: No enlargement, pericardial effusion, or pericardial thickening. AORTA: No aneurysm or dissection. CHEST WALL: No mass or axillary adenopathy. BONES: No bone lesion or fracture. LIMITED ABDOMEN: No suspicious findings. Limited images of the upper abdomen. OTHER: Negative. IMPRESSION: 1. No pulmonary embolism, acute infiltrates, or aortic dissection. 2. No acute or suspicious findings to account for patient's symptoms. Electronically authenticated by: BEHZAD CARRASQUILLO Date: 2022-07-26 11:59 Normal [facility] [place] Covid-19 PCR (CVDTB)on 07-11 SARS-CoV-2 (COVID-19) RNA SUKHJINDER+probe Ql (Unsp spec) Not detected Normal NOT DETECTED [facility] [place] Comment on above: Result Comment: When diagnostic testing is negative, the possibility of a false negative should be considered in the context of a patient's recent exposures and the presence of clinical signs and symptoms consistent with SARS-CoV-2. This test is not yet approved or cleared by the [place] FDA. When there are no FDA-approved or cleared tests available, and other criteria are met, FDA can make tests available under an emergency access mechanism called an Emergency Use Authorization (EUA). The EUA for this test is supported by the [place] of Health and Human Service's declaration that circumstances exist to justify the emergency use of in vitro diagnostics for the detection and/or diagnosis of the virus that causes COVID-19. This EUA will remain in effect for the duration of the COVID-19 declaration justifying emergency of IVDs, unless it is terminated or revoked by the FDA (after which the test may no longer be used). Performed By: #### U DINA, LIPID, TSH, BNP, CMP, T7 #### [facility] [place] [facility] [address] [address] [address] Suzie Brooks D-DIMERon 07-26-2022 D-DIMER 0.88 mg/L FEU Critically high <=0.59 [facility] Comment on above: Performed By: #### C VDTBH #### [facility] [place] [facility] [address] [place], [place] [address] Dr. Suzie Brooks D-DIMER COMMENTS SEE BELOW Normal [facility] Comment on above: Result Comment: Incr eases in D-Dimer concentration observed with thromboembolic events can be variable due to localization, size, and age of the thrombus. Therefore, a thromboembolic event cannot be diagnosed with certainty on the basis of the reference range. D-Dimers may also be elevated for a variety of disorders including: advanced age, , coronary disease, cancer, liver disease, infection, inflammation, hematoma, DIC, trauma, post-surgery, diabetes, thrombolytic or anticoagulant therapy, stress, and generalized hospitalization. Performed By: #### C VDTBH #### [facility] [address] [place] [id number] [address] Suzie Brooks ECHOCARDIO M/2D COMPLETEon 1 09-26-2021 ECHOCARDIO M/2D COMPLETE Patient: TOM APARICIO Exam Date: 07/26/2022 : 1950 Gender:M Ordering : DR MARIELLE LERMA . Admission #: [id number] Family : Order #: [id number] CLICK HERE TO VIEW EXAM ECHOCARDIOGRAM REPORT PROCEDURE: CARDIO PULMONARY ECHOCARDIO M/2D COMP INDICATIONS: Chest pain, hypertension COMPARISON: None. DESCRIPTION: COMPLETE ECHOCARDIOGRAM Real-time transthoracic echocardiography with 2D, M-mode, spectral and color flow Doppler performed. QUALITY: Technical quality was adequate. 71 297# BP 135/65 LEFT VENTRICLE: Normal chamber size. Proximal septal hypertrophy (sigmoid septum). LV EF: Normal left ventricular ejection fraction, (>55%). No significant wall motion abnormalities. DIASTOLIC: Normal diastolic function. ATRIAL SEPTUM: Visually appears intact. LEFT ATRIUM: Normal chamber size. RIGHT ATRIUM: Normal chamber size. RIGHT VENTRICLE: Normal chamber size. Normal right ventricular systolic function. TRICUSPID VALVE: Normal mobility and thickness. No stenosis with trivial regurgitation. MITRAL VALVE: Normal mobility and thickness. No evidence of mitral valve stenosis. There is no mitral annular calcification. No mitral regurgitation. AORTIC VALVE: Normal trileaflet appearance. No visible sclerosis. Normal leaflet mobility. No evidence of aortic valve stenosis. No aortic regurgitation. AORTIC ROOT: Normal diameter and appearance. PULMONIC VALVE: Normal thickness and mobility. No stenosis. Trivial regurgitation. PERICARDIUM: No evidence of pericardial effusion. IVC: Collapses with inspirations. IVC is normal in size. CONCLUSION: Global left ventricular systolic function is normal; visually estimated ejection fraction is 55 to 60%. No obvious wall motion abnormalities. Normal diastolic function. The right ventricle is normal in size and systolic function. No significant valvular abnormalities. Adult Echocardiography Procedure Report Left Ventricle LVEDD (3.7 - 5.6 cm): 4.71 cm LVESD (2.2 - 4.0 cm): 2.80 cm LVIVS thickness (0.6 - 1.2 cm): 1.32 cm LVPW thickness (0.5 - 1.0 cm): 0.95 cm e': 0.11 m/s E - e': 7.89 LVOT Max Gradient: 5.64 mm[Hg] Peak Velocity (LVOT): 1.19 m/s LVOT Diameter 2.27 cm Left Atrium LA Volume Index (2D A2C): 72.34 ml, 72.34 ml Left Atrium Systolic Dimension: 3.62 cm Mitral Valve MV E to A Ratio: 0.95 Mitral Valve A-Wave Peak Velocity: 0.95 m/s Mitral Valve E-Wave Peak Velocity: 0.89 m/s Right Ventricle Aorta AO Root Diam: 3.12 cm Aortic Valve AoV Area (Peak Srinivas): 3.21 cm2, 3.21 cm2 Peak Velocity(Antegrade Flow): 1.50 m/s Peak Gradient(Antegrade Flow): 8.96 mm[Hg] Tricuspid Valve Peak Velocity: 0.47 m/s Pulmonic Valve Peak Velocity: 1.09 m/s, 1.03 m/s Peak Gradient: 4.75 mm[Hg], 4.26 mm[Hg] Right Atrium Right Atrium Systolic Pressure: 54.66 ml, 54.66 ml Dictated by: Jaylan Rios M.D. on 07/26/2022 at 16:20 Approved by: Jaylan Rios M.D. on 07/26/2022 at 16:22 Normal [facility] PROF 14(COMP METB)on 022 Albumin [Mass/Vol] 3.6 g/dL Normal 3.4-5.0 [facility] Comment on above: Performed By: #### U DINA, LIPID, TSH, BNP, CMP, T7 #### [facility] [address] [address] [address] Suzie Brooks Albumin/Globulin [Mass ratio] 0.9 {ratio} Normal [facility] Comment on above: Performed By: #### U DINA, LIPID, TSH, BNP, CMP, T7 #### [facility] [address] [place] [address] Dr. Suzie Brooks ALP [Catalytic activity/Vol] 70 U/L Normal 46-116 [facility] Comment on above: Performed By: #### U DINA, LIPID, TSH, BNP, CMP, T7 #### [facility] [address] [place] [address] Dr. Suzie Brooks ALT [Catalytic activity/Vol] 30 U/L Normal 16-63 [facility] Comment on above: Performed By: #### U DINA, LIPID, TSH, BNP, CMP, T7 #### [facility] [address] [place] [address] Dr. Suzie Brooks Anion gap [Moles/Vol] 9.2 mmol/L Normal [facility] Comment on above: Performed By: #### U DINA, LIPID, TSH, BNP, CMP, T7 #### [facility] [address] [place] [address] Dr. Suzie Brooks AST [Catalytic activity/Vol] 29 U/L Normal 15-37 [facility] Comment on above: Performed By: #### U DINA, LIPID, TSH, BNP, CMP, T7 #### [facility] [address] [place] [address] Dr. Suzie Brooks Bilirubin [Mass/Vol] 0.5 mg/dL Normal 0.2-1.0 [facility] Comment on above: Performed By: #### U DINA, LIPID, TSH, BNP, CMP, T7 #### [facility] [address] [place] [address] Dr. Suzie Brooks Calcium [Mass/Vol] 8.8 mg/dL Normal 8.5-10.1 [facility] Comment on above: Performed By: #### U DINA, LIPID, TSH, BNP, CMP, T7 #### [facility] [address] [address] [address] Suzie Brooks Chloride [Moles/Vol] 102 mmol/L Normal 98-107 [facility] Comment on above: Performed By: #### U DINA, LIPID, TSH, BNP, CMP, T7 #### [facility] [address] [address] [address] Suzie Brooks CO2 [Moles/Vol] 27.2 mmol/L Normal 21.0-32.0 [facility] Comment on above: Performed By: #### U DINA, LIPID, TSH, BNP, CMP, T7 #### [facility] [address] [address] [address] Suzie Brooks Creatinine [Mass/Vol] 0.99 mg/dL Normal 0.70-1.30 [facility] Comment on above: Performed By: #### U DINA, LIPID, TSH, BNP, CMP, T7 #### [facility] [address] [place] [address] Dr. Suzie Brooks EGFR-AF P[place] >60 Normal >=60 [facility] Comment on above: Performed By: #### U DINA, LIPID, TSH, BNP, CMP, T7 #### [facility] [address] [place] [address] Dr. Suzie Brooks EGFR-NON AF [place] >60 Normal >=60 [facility] Comment on above: Performed By: #### U DINA, LIPID, TSH, BNP, CMP, T7 #### [facility] [address] [address] [address] Suzie Brooks Globulin (S) [Mass/Vol] 3.9 g/dL Normal [facility] Comment on above: Performed By: #### U DINA, LIPID, TSH, BNP, CMP, T7 #### [facility] [address] [place] [address] Dr. Suzie Brooks Glucose [Mass/Vol] 125 mg/dL Critically high 74-106 [facility] Comment on above: Performed By: #### U DINA, LIPID, TSH, BNP, CMP, T7 #### [facility] [address] [address] [address] Suzie Brooks Potassium [Moles/Vol] 3.4 mmol/L Critically low 3.5-5.1 [facility] Comment on above: Performed By: #### U DINA, LIPID, TSH, BNP, CMP, T7 #### [facility] [address] [place] [address] Dr. Suzie Brooks Protein [Mass/Vol] 7.5 g/dL Normal 6.4-8.2 [facility] Comment on above: Performed By: #### U DINA, LIPID, TSH, BNP, CMP, T7 #### [facility] [address] [place] [address] Dr. Suzie Brooks Sodium [Moles/Vol] 135 mmol/L Critically low 136-145 [facility] Comment on above: Performed By: #### U DINA, LIPID, TSH, BNP, CMP, T7 #### [facility] [address] [place] [address] Dr. Suzie Brooks Urea nitrogen [Mass/Vol] 15.0 mg/dL Normal 7.0-18.0 [facility] Comment on above: Performed By: #### U DINA, LIPID, TSH, BNP, CMP, T7 #### [facility] [address] [place] [address] Dr. Suzie Brooks Urea nitrogen/Creatinine [Mass ratio] 15.2 mg/mg Normal [facility] Comment on above: Performed By: #### U DINA, LIPID, TSH, BNP, CMP, T7 #### [facility] [address] [place] [address] Dr. Suzie Brooks PROTIMEon 07-26-2022 INR Coag (PPP) [Relative time] 0.95 {INR} Normal [facility] Comment on above: Performed By: #### C VDTBH #### [facility] [address] [place] [address] Dr. Suzie Brooks INR GUIDELINES SEE BELOW Normal [facility] Comment on above: Result Comment: TOMMY RED INR: 2.0 - 3.0 CONDITIONS NOT LISTED BELOW 2.5 - 3.5 FOR PROSTHETIC HEART VALVE REPLACEMENT 2.5 - 3.5 RECURRENT THROMBOSIS Performed By: #### C VDTBH #### [facility] [address] [address] [address] Suzie Brooks PT Coag (PPP) [Time] 10.3 s Normal 9.0-11.6 [facility] Comment on above: Performed By: #### C VDTBH #### [facility] [address] [place] [address] Dr. Suzie Brooks PTTon 07-26-2022 aPTT Coag (Bld) [Time] 28.2 s Normal 22.3-36.2 [facility] Comment on above: Performed By: #### C VDTBH #### [facility] [address] [place] [address] Dr. Suzie Brooks TSHon 07-26-2022 TSH 2.000 uIU/mL Normal 0.358-3.740 [facility] Comment on above: Performed By: #### O X24HR #### [facility] [address] [place] [address] Dr. Suzie Brooks XR CHEST 1 Von 07-26-2022 XR CHEST 1 V EXAMINATION: XR CHES T 1 V HISTORY: CHEST PAIN, UNSPECIFIED COMPARISON: XR chest 10/17/2021 FINDINGS: LUNGS: Mild opacities within lingula partially obscuring the heart and diaphragm margin. VASCULATURE: No increased pulmonary vasculature. PLEURA: No pneumothorax, effusion, or pleural thickening. CARDIAC: No cardiomegaly or cardiac silhouette abnormality. MEDIASTINUM: No visible mass or adenopathy. BONES: No fracture or visible bone lesion. OTHER: Negative. IMPRESSION: 1. Mild lingular infiltrates versus atelectasis. Electronically authenticated by: BEHZAD CARRASQUILLO Date: 2022-07-26 10:51 Normal [facility] Reminderson 07-23-2022 Reminders - From: Aliza Recinos To: EU - Recalls Zeng; Sent: 05/30/2022 15:57:23 EDT Show up: 05/30/2022 15:57:00 EDT Subject: IVP Due Date/Time: 06/19/2022 15:57:00 EST Reminder/Recall Pt needs IVP prior in June. Pt uses [facility] at [facility] to call and scheduled pt for the 7, 8, or 9 scheduled on 07/18/2022 at 10:30 completed and in pt's chart he has a f/u in august Normal [facility] Lab Reportson 07-21-2022 Lab Reports [id number]:12 7 Normal [facility] RAD - MISCon 07-21-2022 RAD - MISC [id number]:12 7 Normal [facility] CREATININEon 07-18-2022 Creatinine [Mass/Vol] 0.93 mg/dL Normal 0.70-1.30 [facility] Comment on above: Performed By: #### U DINA, LIPID, TSH, BNP, CMP, T7 #### [facility] [address] [address] [address] Suzie Brooks EGFR-AF [place] >60 Normal >=60 [facility] Comment on above: Performed By: #### U DINA, LIPID, TSH, BNP, CMP, T7 #### [facility] [address] [address] [address] Suzie Brooks EGFR-NON AF [place] >60 Normal >=60 [facility] Comment on above: Performed By: #### U DINA, LIPID, TSH, BNP, CMP, T7 #### [facility] [address] [address] [address] Suzie Brooks XR IVPon 07-18-2022 XR IVP EXAMINATION: XR IVP HISTORY: Kidney stone COMPARISON: XR KUB 11/21/2021, CT abdomen pelvis 02/16/2022 TECHNIQUE: After obtaining patient consent a health information manager image was obtained followed by injection of 100cc of Omnipaque 300 IV contrast. Immediate nephrographic images were obtained. Corticomedullary and urographic phase images were obtained at 5, 10, 15 and 20 minutes. 15 minute oblique images were also obtained. FINDINGS: KIDNEY/URETER - RIGHT: No visible calcifications. KIDNEY/URETER - LEFT: No visible calcifications. PELVIS: No visible ureteral stones. Stable right pelvic calcifications compatible with phleboliths. NEPHROGRAPHIC PHASE: Normal, symmetric size, contour, and orientation. Normal and symmetric time of contrast uptake. CORTICOMEDULLARY: No mass or abnormal appearing medulla, pyramids, or collecting system. Prominent renal pelvis bilaterally, likely development. UROGRAPHIC PHASE: Normal caliber, course, and number of ureters. BLADDER: Normal size and contour. BOWEL: No abnormal dilation or deviation. BONES: No acute abnormality. OTHER: Negative. No abnormal gaseous collections. IMPRESSION: 1. No visible urinary tract calculi. 2. No obstructive uropathy or abnormal dilation. 3. Unremarkable bladder. Electronically authenticated by: BEHZAD CARRASQUILLO Date: 2022-07-18 11:50 Normal [facility] INSULINon 05-16-2022 Insulin 59.0 uIU/mL Critically high 2.6-24.9 [facility] Comment on above: Performed By: #### U DINA, LIPID, TSH, BNP, CMP, T7 #### [facility] [address] [place] [address] Dr. Suzie Brooks BNPon 05-15-2022 Natriuretic peptide B (Bld) [Mass/Vol] 81.0 pg/mL Normal <=900.0 [facility] Comment on above: Performed By: #### U DINA, LIPID, TSH, BNP, CMP, T7 #### [facility] [address] [place] [address] Dr. Suzie Brooks CBC AUTO DIFFon 05-15-2022 BASO # 0.1 103/ul Normal 0.0-0.1 [facility] Comment on above: Performed By: #### C VDTBH #### [facility] [address] [place] [address] Dr. Suzie Brooks Basophils/100 WBC (Bld) 0.6 % Normal 0.2-2.0 [facility] Comment on above: Performed By: #### C VDTBH #### [facility] [address] [place] [address] Dr. Suize Brooks EO # 0.3 103/ul Normal 0.0-0.7 [facility] Comment on above: Performed By: #### C VDTBH #### [facility] [address] [place] [address] Dr. Suzie Brooks Eosinophils/100 WBC (Bld) 2.9 % Normal 0.9-7.0 [facility] Comment on above: Performed By: #### C VDTBH #### [facility] [address] [place] [address] Dr. Suzie Brooks Erythrocyte distribution width (RBC) [Ratio] 14.1 % Normal 11.0-15.0 [facility] Comment on above: Performed By: #### C VDTBH #### [facility] [address] [place] [address] Dr. Suzie Brooks Hematocrit (Bld) [Volume fraction] 46.7 % Normal 42.0-54.0 [facility] Comment on above: Performed By: #### C VDTBH #### [facility] [address] [place] [address] Dr. Suzie Brooks Hemoglobin (Bld) [Mass/Vol] 15.4 g/dL Normal 14.0-18.0 [facility] Comment on above: Performed By: #### C VDTBH #### [facility] [address] [place] [address] Dr. Suzie Brooks IG # 0.03 10e3/ul Normal 0.00-0.03 [facility] Comment on above: Performed By: #### C VDTBH #### [facility] [address] [place] [address] Dr. Suzie Brooks IG % 0.3 % Normal 0.0-0.5 [facility] Comment on above: Performed By: #### C VDTBH #### [facility] [address] [place] [address] Dr. Suzie Brooks LYMPH # 2.6 103/ul Normal 1.2-3.8 [facility] Comment on above: Performed By: #### C VDTBH #### [facility] [address] [place] [address] Dr. Suzie Brooks Lymphocytes/100 WBC (Bld) 25.1 % Normal 20.5-60.0 [facility] Comment on above: Performed By: #### C VDTBH #### [facility] [address] [place] [address] Dr. Suzie Brooks MANUAL DIFF REQ NO Normal [facility] Comment on above: Performed By: #### C VDTBH #### [facility] [address] [place] [address] Dr. Suzie Brooks MCH (RBC) [Entitic mass] 28.6 pg Normal 25.9-34.0 [facility] Comment on above: Performed By: #### C VDTBH #### [facility] [address] [place] [address] Dr. Suzie rBooks MCHC (RBC) [Mass/Vol] 33.0 g/dL Normal 29.9-35.2 [facility] Comment on above: Performed By: #### C VDTBH #### [facility] [address] [place] [address] Dr. Suzie Brooks MCV (RBC) [Entitic vol] 86.8 fL Normal 80.0-94.0 [facility] Comment on above: Performed By: #### C VDTBH #### [facility] [address] [place] [address] Dr. Suzie Brooks MONO # 0.7 103/ul Normal 0.3-0.8 [facility] Comment on above: Performed By: #### C VDTBH #### [facility] [address] [place] [address] Dr. Suzie Brooks Monocytes/100 WBC (Bld) 6.8 % Normal 1.7-12.0 [facility] Comment on above: Performed By: #### C VDTBH #### [facility] [address] [place] [address] Dr. Suzie Brooks NEUT # 6.5 103/ul Normal 1.4-6.5 [facility] Comment on above: Performed By: #### C VDTBH #### [facility] [address] [place] [address] Dr. Suzie Brooks Neutrophils/100 WBC (Bld) 64.3 % Normal 43.0-75.0 [facility] Comment on above: Performed By: #### C VDTBH #### [facility] [address] [address] [address] Suzie Brooks Platelet mean volume (Bld) [Entitic vol] 9.5 fL Normal 9.5-13.5 [facility] Comment on above: Performed By: #### C VDTBH #### [facility] [address] [place] [address] Dr. Suzie Brooks PLT 273 103/ul Normal 150-450 [facility] Comment on above: Performed By: #### C VDTBH #### [facility] [address] [place] [address] Dr. Suzie Brooks RBC 5.38 106/ul Normal 4.70-6.10 [facility] Comment on above: Performed By: #### C VDTBH #### [facility] [address] [place] [address] Dr. Suzie Brooks WBC 10.2 103/ul Normal 4.0-11.0 [facility] Comment on above: Performed By: #### C VDTBH #### [facility] [address] [place] [address] Dr. Suzie Brooks FREE THYROXINE INDEX T7on FTI 2.23 Normal 1.30-4.50 [facility] Comment on above: Performed By: #### U DINA, LIPID, TSH, BNP, CMP, T7 #### [facility] [address] [place] [address] Dr. Suzie Brooks T3U 36.0 % Normal 33.0-40.0 [facility] Comment on above: Performed By: #### U DINA, LIPID, TSH, BNP, CMP, T7 #### [facility] [address] [place] [address] Dr. Suzie Brooks T4 [Mass/Vol] 6.20 ug/dL Normal 4.50-12.10 [facility] Comment on above: Performed By: #### U DINA, LIPID, TSH, BNP, CMP, T7 #### [facility] [address] [place] [address] Dr. Suzie Brooks GLYCOHEMOGLOBIN A1Con 2021 ADA RECOMMENDATION SEE BELOW Normal [facility] Comment on above: Result Comment: ADA RECOMMENDED LIMIT 4.0 - 6.0 ADA THERAPEUTIC TARGET < 7.0 ACTION SUGGESTED > 7.0 Performed By: #### U DINA, LIPID, TSH, BNP, CMP, T7 #### [facility] [address] [address] [address] Suzie Brooks Glucose [Mass/Vol] 111 mg/dL Normal [facility] Comment on above: Performed By: #### U DINA, LIPID, TSH, BNP, CMP, T7 #### [facility] [address] [address] [address] Suzie Brooks HbA1c (Bld) [Mass fraction] 5.5 % Normal 4.5-6.2 [facility] Comment on above: Performed By: #### U DINA, LIPID, TSH, BNP, CMP, T7 #### [facility] [address] [address] [address] Suzie Brooks LIPID PROFILEon 05-15-2022 CHOL-HDL RATIO NORM SEE BELOW Normal [facility] Comment on above: Result Comment: 3.3 - 4.4 LOW RISK 4.4 - 7.1 AVERAGE RISK 7.1 - 11.0 MODERATE RISK >11.0 HIGH RISK Performed By: #### U DINA, LIPID, TSH, BNP, CMP, T7 #### [facility] [address] [address] [address] Suzie Brooks Cholesterol [Mass/Vol] 136 mg/dL Normal <=200 [facility] Comment on above: Performed By: #### U DINA, LIPID, TSH, BNP, CMP, T7 #### [facility] [address] [address] [address] Suzie Brooks Cholesterol in HDL [Mass/Vol] 34 mg/dL Critically low 40-60 [facility] Comment on above: Performed By: #### U DINA, LIPID, TSH, BNP, CMP, T7 #### [facility] [address] [address] [address] Suzie Brooks Cholesterol in LDL [Mass/Vol] 49.8 mg/dL Normal [facility] Comment on above: Performed By: #### U DINA, LIPID, TSH, BNP, CMP, T7 #### [facility] [address] [address] [address] Suzie Brooks Cholesterol.total/Ch olesterol in HDL [Mass ratio] 4.0 {ratio} Normal [facility] Comment on above: Performed By: #### U DINA, LIPID, TSH, BNP, CMP, T7 #### [facility] [address] [address] [address] Suzie Brooks HDL NORMAL > or = 60 mg/dl - LO W CARDIOVASCULAR RISK <40 mg/dl - HIGH CARDIOVASCULAR RISK Normal [facility] Comment on above: Performed By: #### U DINA, LIPID, TSH, BNP, CMP, T7 #### [facility] [address] [address] [address] Suzie Brooks LDL CALC NORMAL SEE BELOW Normal [facility] Comment on above: Result Comment: <100 mg/dl OPTIMAL 100 - 129 mg/dl NEAR OR ABOVE OPTIMAL 130 - 159 mg/dl BORDERLINE HIGH 160 - 189 mg/dl HIGH >190 mg/dl VERY HIGH Performed By: #### U DINA, LIPID, TSH, BNP, CMP, T7 #### [facility] [address] [address] [address] Suzie Brooks Triglyceride [Mass/Vol] 261 mg/dL Critically high <=150 [facility] Comment on above: Performed By: #### U DINA, LIPID, TSH, BNP, CMP, T7 #### [facility] [address] [address] [address] Suzie Brooks VLDL CALC 52.2 mg/dL Normal [facility] Comment on above: Performed By: #### U DINA, LIPID, TSH, BNP, CMP, T7 #### [facility] [id number] Suzie Brooks PROF 14(COMP METB)on 022 Albumin [Mass/Vol] 3.6 g/dL Normal 3.4-5.0 [facility] Comment on above: Performed By: #### U DINA, LIPID, TSH, BNP, CMP, T7 #### [facility] [address] [address] [address] Suzie Brooks Albumin/Globulin [Mass ratio] 0.9 {ratio} Normal [facility] Comment on above: Performed By: #### U DINA, LIPID, TSH, BNP, CMP, T7 #### [facility] [address] [place] [address] Dr. Suzie Brooks ALP [Catalytic activity/Vol] 60 U/L Normal 46-116 [facility] Comment on above: Performed By: #### U DINA, LIPID, TSH, BNP, CMP, T7 #### [facility] [address] [place] [address] Dr. Suzie Brooks ALT [Catalytic activity/Vol] 36 U/L Normal 16-63 [facility] Comment on above: Performed By: #### U DINA, LIPID, TSH, BNP, CMP, T7 #### [facility] [address] [place] [address] Dr. Suzie Brooks Anion gap [Moles/Vol] 11.7 mmol/L Normal [facility] Comment on above: Performed By: #### U DINA, LIPID, TSH, BNP, CMP, T7 #### [facility] [address] [place] [address] Dr. Suzie Brooks AST [Catalytic activity/Vol] 28 U/L Normal 15-37 [facility] Comment on above: Performed By: #### U DINA, LIPID, TSH, BNP, CMP, T7 #### [facility] [address] [place] [address] Dr. Suzie Brooks Bilirubin [Mass/Vol] 0.6 mg/dL Normal 0.2-1.0 [facility] Comment on above: Performed By: #### U DINA, LIPID, TSH, BNP, CMP, T7 #### [facility] [address] [place] [address] Dr. Suzie Brooks Calcium [Mass/Vol] 8.8 mg/dL Normal 8.5-10.1 [facility] Comment on above: Performed By: #### U DINA, LIPID, TSH, BNP, CMP, T7 #### [facility] [address] [address] [address] Suzie Brooks Chloride [Moles/Vol] 102 mmol/L Normal 98-107 [facility] Comment on above: Performed By: #### U DINA, LIPID, TSH, BNP, CMP, T7 #### [facility] [address] [address] [address] Suzie Brooks CO2 [Moles/Vol] 27.9 mmol/L Normal 21.0-32.0 [facility] Comment on above: Performed By: #### U DINA, LIPID, TSH, BNP, CMP, T7 #### [facility] [address] [address] [address] Suzie Brooks Creatinine [Mass/Vol] 0.98 mg/dL Normal 0.70-1.30 [facility] Comment on above: Performed By: #### U DINA, LIPID, TSH, BNP, CMP, T7 #### [facility] [address] [place] [address] Dr. Suzie Brooks EGFR-AF [place] >60 Normal >=60 [facility] Comment on above: Performed By: #### U DINA, LIPID, TSH, BNP, CMP, T7 #### [facility] [address] [place] [address] Dr. Suzie Brooks EGFR-NON AF [place] >60 Normal >=60 [facility] Comment on above: Performed By: #### U DINA, LIPID, TSH, BNP, CMP, T7 #### [facility] [address] [place] [address] Dr. Suzie Brooks Globulin (S) [Mass/Vol] 3.8 g/dL Normal [facility] Comment on above: Performed By: #### U DINA, LIPID, TSH, BNP, CMP, T7 #### [facility] [address] [address] [address] Suzie Brooks Glucose [Mass/Vol] 107 mg/dL Critically high 74-106 [facility] Comment on above: Performed By: #### U DINA, LIPID, TSH, BNP, CMP, T7 #### [facility] [address] [address] [address] Suzie Brooks Potassium [Moles/Vol] 3.6 mmol/L Normal 3.5-5.1 [facility] Comment on above: Performed By: #### U DINA, LIPID, TSH, BNP, CMP, T7 #### [facility] [address] [address] [address] Suzie Brooks Protein [Mass/Vol] 7.4 g/dL Normal 6.4-8.2 [facility] Comment on above: Performed By: #### U DINA, LIPID, TSH, BNP, CMP, T7 #### [facility] [address] [place] [address] Dr. Suzie Brooks Sodium [Moles/Vol] 138 mmol/L Normal 136-145 [facility] Comment on above: Performed By: #### U DINA, LIPID, TSH, BNP, CMP, T7 #### [facility] [address] [place] [address] Dr. Suzie Brooks Urea nitrogen [Mass/Vol] 12.0 mg/dL Normal 7.0-18.0 [facility] Comment on above: Performed By: #### U DINA, LIPID, TSH, BNP, CMP, T7 #### [facility] [address] [place] [address] Dr. Suzie Brooks Urea nitrogen/Creatinine [Mass ratio] 12.2 mg/mg Normal [facility] Comment on above: Performed By: #### U DINA, LIPID, TSH, BNP, CMP, T7 #### [facility] [address] [place] [address] Dr. Suzie Brooks TSHon 05-15-2022 TSH 2.356 uIU/mL Normal 0.358-3.740 [facility] Comment on above: Performed By: #### U DINA, LIPID, TSH, BNP, CMP, T7 #### [facility] [address] [place] [address] Dr. Suzie Brooks URIC ACID SERUMon 05-15-2022 Urate [Mass/Vol] 5.2 mg/dL Normal 3.5-7.2 [facility] Comment on above: Performed By: #### U DINA, LIPID, TSH, BNP, CMP, T7 #### [facility] [address] [address] [address] Suzie Brooks CALCULI, URINARYon 2 2,8 Dihydroxyadenine Normal [facility] Comment on above: Performed By: #### U DINA, LIPID, TSH, BNP, CMP, T7 #### [facility] [address] [address] [address] Suzie Brooks Ammonium Acid Urate Normal [facility] Comment on above: Performed By: #### U DINA, LIPID, TSH, BNP, CMP, T7 #### [facility] [address] [address] [address] Suzie Brooks Bilirubin Ql (U) Normal [facility] Comment on above: Performed By: #### U DINA, LIPID, TSH, BNP, CMP, T7 #### [facility] [address] [address] [address] Suzie Brooks Ca Oxalate Dihydrate Normal [facility] Comment on above: Performed By: #### U DINA, LIPID, TSH, BNP, CMP, T7 #### [facility] [address] [address] [address] Suzie Brooks CaHPO4 (Brushite) [facility] Comment on above: Performed By: #### U DINA, LIPID, TSH, BNP, CMP, T7 #### [facility] [address] [address] [address] Suzie Brooks Calcium Bilirubinate Normal [facility] Comment on above: Performed By: #### U DINA, LIPID, TSH, BNP, CMP, T7 #### [facility] [address] [address] [address] Suzie Brooks Calcium Carbonate Normal [facility] Comment on above: Performed By: #### U DINA, LIPID, TSH, BNP, CMP, T7 #### [facility] [address] [address] [address] Suzie Brooks Calcium Oxalate Monohydrate 70 % Normal [facility] Comment on above: Performed By: #### U DINA, LIPID, TSH, BNP, CMP, T7 #### [facility] [address] [address] [address] Suzie Brooks Calcium Palmitate Normal [facility] Comment on above: Performed By: #### U DINA, LIPID, TSH, BNP, CMP, T7 #### [facility] [address] [address] [address] Suzie Brooks Calcium Phosphate Normal [facility] Comment on above: Performed By: #### U DINA, LIPID, TSH, BNP, CMP, T7 #### [facility] [address] [address] [address] Suzie Brooks Calcium Stearate Normal [facility] Comment on above: Performed By: #### U DINA, LIPID, TSH, BNP, CMP, T7 #### [facility] [address] [address] [address] Suzie Brooks Carbonate Apatite Normal [facility] Comment on above: Performed By: #### U DINA, LIPID, TSH, BNP, CMP, T7 #### [facility] [address] [address] [address] Suzie Brooks Cellular Material Normal [facility] Comment on above: Performed By: #### U DINA, LIPID, TSH, BNP, CMP, T7 #### [facility] [address] [address] [address] Suzie Brooks Cholesterol [facility] Comment on above: Performed By: #### U DINA, LIPID, TSH, BNP, CMP, T7 #### [facility] [address] [address] [address] Suzie Brooks Color (U) Brown Normal [facility] Comment on above: Performed By: #### U DINA, LIPID, TSH, BNP, CMP, T7 #### [facility] [address] [address] [address] Suzie Brooks Comment [facility] Comment on above: Performed By: #### U DINA, LIPID, TSH, BNP, CMP, T7 #### [facility] [address] [address] [address] Suzie Brooks Comment Comment Normal [facility] Comment on above: Result Comment: Calc ulus received in liquid. Wet calculi must be dried before analysis, which delays reporting of results. Leaving calculi in liquid (such as water, saline, blood, urine) may lead to changes in composition. Performed By: #### U DINA, LIPID, TSH, BNP, CMP, T7 #### [facility] [address] [address] [address] Suzie Brooks Comment: Comment Normal [facility] Comment on above: Result Comment: Fantasma baez questions regarding Calculi Analysis contact [facility] at: [phone]. Performed By: #### U DINA, LIPID, TSH, BNP, CMP, T7 #### [facility] [address] [address] [address] Suzie Brooks Composition Comment [facility] Comment on above: Result Comment: Perc entage (Represents the % composition) Performed By: #### U DINA, LIPID, TSH, BNP, CMP, T7 #### [facility] [address] [address] [address] Suzie Brooks Cystine Normal [facility] Comment on above: Performed By: #### U DINA, LIPID, TSH, BNP, CMP, T7 #### [facility] [address] [address] [address] Suzie Brooks Disclaimer: Comment Normal [facility] Comment on above: Result Comment: This test was developed and its performance characteristics determined by [facility]. It has not been cleared or approved by the Food and Drug Administration. Performed By: #### U DINA, LIPID, TSH, BNP, CMP, T7 #### [facility] [address] [address] [address] Suzie Brooks Dried Blood Normal [facility] Comment on above: Performed By: #### U DINA, LIPID, TSH, BNP, CMP, T7 #### [facility] [address] [address] [address] Suzie Brooks Drug or Metabolite Normal [facility] Comment on above: Performed By: #### U DINA, LIPID, TSH, BNP, CMP, T7 #### [facility] [address] [address] [address] Suzie Brooks Hydroxyapatite Normal [facility] Comment on above: Performed By: #### U DINA, LIPID, TSH, BNP, CMP, T7 #### [facility] [address] [address] [address] Suzie Brooks Mg NH4 PO4 (Struvite) [facility] Comment on above: Performed By: #### U DINA, LIPID, TSH, BNP, CMP, T7 #### [facility] [address] [address] [address] Suzie Brooks MgHPO4 (Newberyite) Normal [facility] Comment on above: Performed By: #### U DINA, LIPID, TSH, BNP, CMP, T7 #### [facility] [address] [address] [address] Suzie Brooks Other component(s) Normal [facility] Comment on above: Performed By: #### U DINA, LIPID, TSH, BNP, CMP, T7 #### [facility] [address] [address] [address] Suzie Brooks PDF . Normal [facility] Comment on above: Performed By: #### U DINA, LIPID, TSH, BNP, CMP, T7 #### [facility] [address] [address] [address] Suzie Brooks Photo Comment [facility] Comment on above: Result Comment: Phot ograph will follow under a separate cover Performed By: #### U DINA, LIPID, TSH, BNP, CMP, T7 #### [facility] [address] [address] [address] Suzie Brooks Please note: Comment [facility] Comment on above: Result Comment: Calc shamika report will follow via computer, mail or pediatric psychiatrist delivery. Performed By: #### U DINA, LIPID, TSH, BNP, CMP, T7 #### [facility] [address] [address] [address] Suzie Brooks Size 6x4 [facility] Comment on above: Result Comment: Mult iple pieces received. Dimensions of the largest piece reported. Performed By: #### U DINA, LIPID, TSH, BNP, CMP, T7 #### [facility] [address] [address] [address] Suzie Brooks Sodium Acid Urate Normal [facility] Comment on above: Performed By: #### U DINA, LIPID, TSH, BNP, CMP, T7 #### [facility] [address] [address] [address] Suzie Brooks Source Comment [facility] Comment on above: Result Comment: Not provided Performed By: #### U DINA, LIPID, TSH, BNP, CMP, T7 #### [facility] [address] [address] [address] Suzie Brooks Triamterene [facility] Comment on above: Performed By: #### U DINA, LIPID, TSH, BNP, CMP, T7 #### [facility] [address] [address] [address] Suzie Brooks Uric Acid 30 % [facility] Comment on above: Performed By: #### U DINA, LIPID, TSH, BNP, CMP, T7 #### [facility] [address] [address] [address] Suzie Brooks Uric Acid Dihydrate Normal [facility] Comment on above: Performed By: #### U DINA, LIPID, TSH, BNP, CMP, T7 #### [facility] [address] [address] [address] Suzie Brooks Weight 99 mg Normal [facility] Comment on above: Performed By: #### U DINA, LIPID, TSH, BNP, CMP, T7 #### [facility] [address] [address] [address] Suzie Brooks Xanthine [facility] Comment on above: Performed By: #### U DINA, LIPID, TSH, BNP, CMP, T7 #### [facility] [address] [address] [address] Suzie Brooks CBC AUTO DIFFon 02-18-2022 BASO # 0.0 103/ul Normal 0.0-0.1 [facility] Comment on above: Performed By: #### U DINA, LIPID, TSH, BNP, CMP, T7 #### [facility] [address] [address] [address] Suzie Brooks Basophils/100 WBC (Bld) 0.3 % Normal 0.2-2.0 [facility] Comment on above: Performed By: #### U DINA, LIPID, TSH, BNP, CMP, T7 #### [facility] [address] [place] [address] Dr. Suzie Brooks EO # 0.3 103/ul Normal 0.0-0.7 [facility] Comment on above: Performed By: #### U DINA, LIPID, TSH, BNP, CMP, T7 #### [facility] [address] [place] [address] Dr. Suzie Brooks Eosinophils/100 WBC (Bld) 2.3 % Normal 0.9-7.0 [facility] Comment on above: Performed By: #### U DINA, LIPID, TSH, BNP, CMP, T7 #### [facility] [address] [place] [address] Dr. Suzie Brooks Erythrocyte distribution width (RBC) [Ratio] 14.2 % Normal 11.0-15.0 [facility] Comment on above: Performed By: #### U DINA, LIPID, TSH, BNP, CMP, T7 #### [facility] [address] [place] [address] Dr. Suzie Brooks Hematocrit (Bld) [Volume fraction] 41.3 % Critically low 42.0-54.0 [facility] Comment on above: Performed By: #### U DINA, LIPID, TSH, BNP, CMP, T7 #### [facility] [address] [place] [address] Dr. Suzie Brooks Hemoglobin (Bld) [Mass/Vol] 13.4 g/dL Critically low 14.0-18.0 [facility] Comment on above: Performed By: #### U DINA, LIPID, TSH, BNP, CMP, T7 #### [facility] [address] [place] [address] Dr. Suzie Brooks IG # 0.03 10e3/ul Normal 0.00-0.03 [facility] Comment on above: Performed By: #### U DINA, LIPID, TSH, BNP, CMP, T7 #### [facility] [address] [place] [address] Dr. Suzie Brooks IG % 0.3 % Normal 0.0-0.5 [facility] Comment on above: Performed By: #### U DINA, LIPID, TSH, BNP, CMP, T7 #### [facility] [address] [address] [address] Suzie Brooks LYMPH # 2.0 103/ul Normal 1.2-3.8 [facility] Comment on above: Performed By: #### U DINA, LIPID, TSH, BNP, CMP, T7 #### [facility] [address] [place] [address] Dr. Suzie Brooks Lymphocytes/100 WBC (Bld) 18.0 % Critically low 20.5-60.0 [facility] Comment on above: Performed By: #### U DINA, LIPID, TSH, BNP, CMP, T7 #### [facility] [address] [place] [address] Dr. Suzie Brooks MANUAL DIFF REQ NO Normal [facility] Comment on above: Performed By: #### U DINA, LIPID, TSH, BNP, CMP, T7 #### [facility] [address] [place] [address] Dr. Suzie Brooks MCH (RBC) [Entitic mass] 28.8 pg Normal 25.9-34.0 [facility] Comment on above: Performed By: #### U DINA, LIPID, TSH, BNP, CMP, T7 #### [facility] [address] [place] [address] Dr. Suzie Brooks MCHC (RBC) [Mass/Vol] 32.4 g/dL Normal 29.9-35.2 [facility] Comment on above: Performed By: #### U DINA, LIPID, TSH, BNP, CMP, T7 #### [facility] [address] [place] [address] Dr. Suzie Brooks MCV (RBC) [Entitic vol] 88.6 fL Normal 80.0-94.0 [facility] Comment on above: Performed By: #### U DINA, LIPID, TSH, BNP, CMP, T7 #### [facility] [address] [place] [address] Dr. Suzie Brooks MONO # 1.0 103/ul Critically high 0.3-0.8 [facility] Comment on above: Performed By: #### U DINA, LIPID, TSH, BNP, CMP, T7 #### [facility] [address] [address] [address] Suzie Brooks Monocytes/100 WBC (Bld) 9.2 % Normal 1.7-12.0 [facility] Comment on above: Performed By: #### U DINA, LIPID, TSH, BNP, CMP, T7 #### [facility] [address] [address] [address] Suzie Brooks NEUT # 7.9 103/ul Critically high 1.4-6.5 [facility] Comment on above: Performed By: #### U DINA, LIPID, TSH, BNP, CMP, T7 #### [facility] [address] [address] [address] Suzie Brooks Neutrophils/100 WBC (Bld) 69.9 % Normal 43.0-75.0 [facility] Comment on above: Performed By: #### U DINA, LIPID, TSH, BNP, CMP, T7 #### [facility] [address] [address] [address] Suzie Brooks Platelet mean volume (Bld) [Entitic vol] 9.6 fL Normal 9.5-13.5 [facility] Comment on above: Performed By: #### U DINA, LIPID, TSH, BNP, CMP, T7 #### [facility] [address] [address] [address] Suzie Brooks PLT 218 103/ul Normal 150-450 [facility] Comment on above: Performed By: #### U DINA, LIPID, TSH, BNP, CMP, T7 #### [facility] [address] [address] [address] Suzie Brooks RBC 4.66 106/ul Critically low 4.70-6.10 The [facility] Comment on above: Performed By: #### U DINA, LIPID, TSH, BNP, CMP, T7 #### [facility] [address] [address] [address] Suzie Brooks WBC 11.3 103/ul Critically high 4.0-11.0 The [facility] Comment on above: Performed By: #### U DINA, LIPID, TSH, BNP, CMP, T7 #### [facility] [address] [address] [address] Suzie Brooks CULTURE URINEon 02-18-2022 CULTURE URINE Culture Observations : NO GROWTH. Normal [facility] Comment on above: Performed By: #### M AG24 #### [facility] [address] [address] [address] Suzie Brooks Covid-19 PCR (CVDTB)on 02-08 SARS-CoV-2 (COVID-19) RNA SUKHJINDER+probe Ql (Unsp spec) Not detected Normal NOT DETECTED The [facility] Comment on above: Result Comment: When diagnostic testing is negative, the possibility of a false negative should be considered in the context of a patient's recent exposures and the presence of clinical signs and symptoms consistent with SARS-CoV-2. This test is not yet approved or cleared by the [place] FDA. When there are no FDA-approved or cleared tests available, and other criteria are met, FDA can make tests available under an emergency access mechanism called an Emergency Use Authorization (EUA). The EUA for this test is supported by the Digital Engineer of Health and Human Service's declaration that circumstances exist to justify the emergency use of in vitro diagnostics for the detection and/or diagnosis of the virus that causes COVID-19. This EUA will remain in effect for the duration of the COVID-19 declaration justifying emergency of IVDs, unless it is terminated or revoked by the FDA (after which the test may no longer be used). Performed By: #### C VDTBH #### [facility] [address] [address] [address] Suzie Brooks PROF 14(COMP METB)on 022 Albumin [Mass/Vol] 3.0 g/dL Critically low 3.4-5.0 Th e [facility] Comment on above: Performed By: #### O X24HR #### [facility] [address] [place] [id number] [address] Suzie Brooks Albumin/Globulin [Mass ratio] 0.9 {ratio} Normal The [facility] Comment on above: Performed By: #### O X24HR #### [facility] [address] [address] [address] Suzie Brooks ALP [Catalytic activity/Vol] 49 U/L Normal 46-116 [facility] Comment on above: Performed By: #### O X24HR #### [facility] [address] [address] [address] Suzie Brooks ALT [Catalytic activity/Vol] 35 U/L Normal 16-63 [facility] Comment on above: Performed By: #### O X24HR #### [facility] [address] [address] [address] Suzie Brooks Anion gap [Moles/Vol] 11.8 mmol/L Normal [facility] Comment on above: Performed By: #### O X24HR #### [facility] [address] [place] [address] Dr. Suzie Brooks AST [Catalytic activity/Vol] 27 U/L Normal 15-37 [facility] Comment on above: Performed By: #### O X24HR #### [facility] [address] [address] [address] Suzie Brooks Bilirubin [Mass/Vol] 0.4 mg/dL Normal 0.2-1.0 [facility] Comment on above: Performed By: #### O X24HR #### [facility] [address] [place] [address] Dr. Suzie Brooks Calcium [Mass/Vol] 7.6 mg/dL Critically low 8.5-10.1 Th [facility] Comment on above: Performed By: #### O X24HR #### [facility] [address] [address] [address] Suzie Brooks Chloride [Moles/Vol] 106 mmol/L Normal 98-107 [facility] Comment on above: Performed By: #### O X24HR #### [facility] [address] [address] [address] Suzie Brooks CO2 [Moles/Vol] 26.2 mmol/L Normal 21.0-32.0 [facility] Comment on above: Performed By: #### O X24HR #### [facility] [address] [address] [address] Suzie Brooks Creatinine [Mass/Vol] 1.08 mg/dL Normal 0.70-1.30 [facility] Comment on above: Performed By: #### O X24HR #### [facility] [address] [address] [address] Suzie Brooks EGFR-AF PAPUA NEW GUINEAN >60 Normal >=60 [facility] Comment on above: Performed By: #### O X24HR #### [facility] [address] [address] [address] Suzie Brooks EGFR-NON AF PAPUA [place] >60 Normal >=60 [facility] Comment on above: Performed By: #### O X24HR #### [facility] [address] [place] [address] Dr. Suzie Brooks Globulin (S) [Mass/Vol] 3.2 g/dL Normal [facility] Comment on above: Performed By: #### O X24HR #### [facility] [address] [place] [address] Dr. Suzie Brooks Glucose [Mass/Vol] 107 mg/dL Critically high 74-106 [facility] Comment on above: Performed By: #### O X24HR #### [facility] [address] [place] [address] Dr. Suzie Brooks Potassium [Moles/Vol] 4.0 mmol/L Normal 3.5-5.1 [facility] Comment on above: Performed By: #### O X24HR #### [facility] [address] [place] [address] Dr. Suzie Brooks Protein [Mass/Vol] 6.2 g/dL Critically low 6.4-8.2 Th [facility] Comment on above: Performed By: #### O X24HR #### [facility] [address] [place] [address] Dr. Suzie Brooks Sodium [Moles/Vol] 140 mmol/L Normal 136-145 [facility] Comment on above: Performed By: #### O X24HR #### [facility] [address] [place] [address] Dr. Suzie Brooks Urea nitrogen [Mass/Vol] 14.0 mg/dL Normal 7.0-18.0 [facility] Comment on above: Performed By: #### O X24HR #### [facility] [address] [place] [address] Dr. Suzie Brooks Urea nitrogen/Creatinine [Mass ratio] 13.0 mg/mg Normal The [facility] Comment on above: Performed By: #### O X24HR #### [facility] [address] [place] [address] Dr. Suzie Brooks CBC AUTO DIFFon 02-17-2022 BASO # 0.1 103/ul Normal 0.0-0.1 [facility] Comment on above: Performed By: #### M AG24 #### [facility] [address] [place] [address] Dr. Suzie Brooks Basophils/100 WBC (Bld) 0.4 % Normal 0.2-2.0 [facility] Comment on above: Performed By: #### M AG24 #### [facility] [address] [place] [address] Dr. Suzie Brooks EO # 0.3 103/ul Normal 0.0-0.7 [facility] Comment on above: Performed By: #### M AG24 #### [facility] [address] [place] [address] Dr. Suzie Brooks Eosinophils/100 WBC (Bld) 2.3 % Normal 0.9-7.0 The [facility] Comment on above: Performed By: #### M AG24 #### [facility] [address] [place] [address] Dr. Suzie Brooks Erythrocyte distribution width (RBC) [Ratio] 13.8 % Normal 11.0-15.0 The [facility] Comment on above: Performed By: #### M AG24 #### [facility] [address] [place] [address] Dr. Suzie Brooks Hematocrit (Bld) [Volume fraction] 45.2 % Normal 42.0-54.0 [facility] Comment on above: Performed By: #### M AG24 #### [facility] [address] [place] [address] Dr. Suzie Brooks Hemoglobin (Bld) [Mass/Vol] 14.9 g/dL Normal 14.0-18.0 [facility] Comment on above: Performed By: #### M AG24 #### [facility] [address] [place] [address] Dr. Suzie Brooks IG # 0.05 10e3/ul Critically high 0.00-0.03 [facility] Comment on above: Performed By: #### M AG24 #### [facility] [address] [place] [address] Dr. Suzie Brooks IG % 0.4 % Normal 0.0-0.5 [facility] Comment on above: Performed By: #### M AG24 #### [facility] [address] [place] [address] Dr. Suzie Brooks LYMPH # 2.5 103/ul Normal 1.2-3.8 The [facility] Comment on above: Performed By: #### M AG24 #### [facility] [address] [place] [address] Dr. Suzie Brooks Lymphocytes/100 WBC (Bld) 17.3 % Critically low 20.5-60.0 [facility] Comment on above: Performed By: #### M AG24 #### [facility] [address] [place] [address] Dr. Suzie Brooks MANUAL DIFF REQ NO Normal [facility] Comment on above: Performed By: #### M AG24 #### [facility] [address] [place] [address] Dr. Suzie Brooks MCH (RBC) [Entitic mass] 28.7 pg Normal 25.9-34.0 The [facility] Comment on above: Performed By: #### M AG24 #### [facility] [address] [place] [address] Dr. Suzie Brooks MCHC (RBC) [Mass/Vol] 33.0 g/dL Normal 29.9-35.2 The [facility] Comment on above: Performed By: #### M AG24 #### [facility] [address] [place] [address] Dr. Suzie Brooks MCV (RBC) [Entitic vol] 87.1 fL Normal 80.0-94.0 [facility] Comment on above: Performed By: #### M AG24 #### [facility] [address] [place] [address] Dr. Suzie Brooks MONO # 1.0 103/ul Critically high 0.3-0.8 [facility] Comment on above: Performed By: #### M AG24 #### [facility] [address] [place] [address] Dr. Suzie Brooks Monocytes/100 WBC (Bld) 6.8 % Normal 1.7-12.0 [facility] Comment on above: Performed By: #### M AG24 #### [facility] [address] [place] [address] Dr. Suzie Brooks NEUT # 10.3 103/ul Critically high 1.4-6.5 [facility] Comment on above: Performed By: #### M AG24 #### [facility] [address] [place] [address] Dr. Suzie Brooks Neutrophils/100 WBC (Bld) 72.8 % Normal 43.0-75.0 [facility] Comment on above: Performed By: #### M AG24 #### [facility] [address] [place] [address] Dr. Suzie Brooks Platelet mean volume (Bld) [Entitic vol] 9.7 fL Normal 9.5-13.5 The [facility] Comment on above: Performed By: #### M AG24 #### [facility] [address] [place] [address] Dr. Suzie Brooks PLT 253 103/ul Normal 150-450 The [facility] Comment on above: Performed By: #### M AG24 #### [facility] [address] [place] [address] Dr. Suzie Brooks RBC 5.19 106/ul Normal 4.70-6.10 The [facility] Comment on above: Performed By: #### M AG24 #### [facility] [address] [place] [address] Dr. Suzie Brooks WBC 14.2 103/ul Critically high 4.0-11.0 [facility] Comment on above: Performed By: #### M AG24 #### [facility] [address] [place] [address] Dr. Suzie Brooks CULTURE BLOODon 02-17-2022 Microscopic examination of blood, culture Culture Observations: NO GROWTH AT 5 DAYS. Normal [facility] Comment on above: Performed By: #### M AG24 #### [facility] [address] [place] [address] Dr. Suzie Brooks Microscopic examination of blood, culture Culture Observations: NO GROWTH AT 5 DAYS. Normal [facility] Comment on above: Performed By: #### M AG24 #### [facility] [address] [place] [address] Dr. Suzie Brooks ER URINE PROFILEon Bilirubin Ql (U) Negative Normal NEGATIVE [facility] Comment on above: Performed By: #### E RUR #### [facility] [address] [place] [address] Dr. Suzie Brooks Clarity (U) CLEAR Normal CLEAR [facility] Comment on above: Performed By: #### E RUR #### [facility] [address] [place] [address] Dr. Suzie Brooks Color (U) DK. YELLOW Normal YELLOW [facility] Comment on above: Performed By: #### E RUR #### [facility] [address] [place] [address] Dr. Suzie Brooks ERUAHD A micrscopic examina tion will be performed if indicated. Normal [facility] Comment on above: Performed By: #### E RUR #### [facility] [address] [place] [address] Dr. Suzie Brooks Glucose Ql (U) Negative Normal NEGATIVE [facility] Comment on above: Performed By: #### E RUR #### [facility] [address] [place] [address] Dr. Suzie Brooks Hemoglobin Ql (U) Negative Normal NEGATIVE [facility] Comment on above: Performed By: #### E RUR #### [facility] [address] [place] [address] Dr. Suzie Brooks Ketones Ql (U) Negative Normal NEGATIVE [facility] Comment on above: Performed By: #### E RUR #### [facility] [address] [place] [address] Dr. Suzie Brooks LEUKOCYTES Negative Normal NEGATIVE [facility] Comment on above: Performed By: #### E RUR #### [facility] [address] [place] [address] Dr. Suzie Brooks Nitrite Ql (U) Negative Normal NEGATIVE [facility] Comment on above: Performed By: #### E RUR #### [facility] [address] [place] [address] Dr. Suzie Brooks pH (U) 5.0 [pH] Normal 5-9 [facility] Comment on above: Performed By: #### E RUR #### [facility] [address] [place] [address] Dr. Suzie Brooks SPEC GRAVITY >=1.030 Abnormal 1.005-<=1.02 5 [facility] Comment on above: Performed By: #### E RUR #### [facility] [address] [place] [address] Dr. Suzie Brooks UA PROTEIN Negative Normal NEGATIVE/ TRACE The [facility] Comment on above: Performed By: #### E RUR #### [facility] [address] [place] [address] Dr. Suzie Brooks UR MICRO IND NOT INDICATED Normal [facility] Comment on above: Performed By: #### E RUR #### [facility] [address] [place] [address] Dr. Suzie Brooks Urobilinogen Qn (U) 0.2 {Behzad'U}/dL Normal 0.2 - 1. 0 [facility] Comment on above: Performed By: #### E RUR #### [facility] [address] [place] [address] Dr. Suzie Brooks LACTATE/LACTIC ACIDon 2021 Lactate [Moles/Vol] 1.4 mmol/L Normal 0.4-1.9 [facility] Comment on above: Performed By: #### U DINA, LIPID, TSH, BNP, CMP, T7 #### [facility] [address] [place] [address] Dr. Suzie Brooks PROF CHEM 8 (BAS METB)on Anion gap [Moles/Vol] 12.2 mmol/L Normal [facility] Comment on above: Performed By: #### U DINA, LIPID, TSH, BNP, CMP, T7 #### [facility] [address] [address] [address] Suzie Brooks Calcium [Mass/Vol] 8.1 mg/dL Critically low 8.5-10.1 [facility] Comment on above: Performed By: #### U DINA, LIPID, TSH, BNP, CMP, T7 #### [facility] [address] [place] [address] Dr. Suzie Brooks Chloride [Moles/Vol] 103 mmol/L Normal 98-107 [facility] Comment on above: Performed By: #### U DINA, LIPID, TSH, BNP, CMP, T7 #### [facility] [address] [place] [address] Dr. Suzie Brooks CO2 [Moles/Vol] 26.1 mmol/L Normal 21.0-32.0 [facility] Comment on above: Performed By: #### U DINA, LIPID, TSH, BNP, CMP, T7 #### [facility] [address] [address] [address] Suzie Brooks Creatinine [Mass/Vol] 1.06 mg/dL Normal 0.70-1.30 [facility] Comment on above: Performed By: #### U DINA, LIPID, TSH, BNP, CMP, T7 #### [facility] [address] [place] [address] Dr. Suzie Brooks EGFR-AF PAPUA [place] >60 Normal >=60 [facility] Comment on above: Performed By: #### U DINA, LIPID, TSH, BNP, CMP, T7 #### [facility] [address] [address] [address] Suzie Brooks EGFR-NON AF PAPUA [place] >60 Normal >=60 [facility] Comment on above: Performed By: #### U DINA, LIPID, TSH, BNP, CMP, T7 #### [facility] [address] [place] [address] Dr. Suzie Brooks Glucose [Mass/Vol] 138 mg/dL Critically high 74-106 [facility] Comment on above: Performed By: #### U DINA, LIPID, TSH, BNP, CMP, T7 #### [facility] [address] [address] [address] Suzie Brooks Potassium [Moles/Vol] 4.3 mmol/L Normal 3.5-5.1 [facility] Comment on above: Performed By: #### U DINA, LIPID, TSH, BNP, CMP, T7 #### [facility] [address] [place] [address] Dr. Suzie Brooks Sodium [Moles/Vol] 137 mmol/L Normal 136-145 [facility] Comment on above: Performed By: #### U DINA, LIPID, TSH, BNP, CMP, T7 #### [facility] [address] [address] [address] Suzie Brooks Urea nitrogen [Mass/Vol] 14.0 mg/dL Normal 7.0-18.0 [facility] Comment on above: Performed By: #### U DINA, LIPID, TSH, BNP, CMP, T7 #### [facility] [address] [address] [address] Suzie Brooks Urea nitrogen/Creatinine [Mass ratio] 13.2 mg/mg Normal [facility] Comment on above: Performed By: #### U DINA, LIPID, TSH, BNP, CMP, T7 #### [facility] [address] [place] [address] Dr. Suzie Brooks TROPONIN, HIGH SENSITIVITYon 02-17-2022 HSTROP 8.4 pg/mL Normal 4.0-76.1 [facility] Comment on above: Result Comment: CUT- OFF POINTS HAVE BEEN ESTABLISHED BASED ON THE FOURTH UNIVERSAL DEFINITIONS OF MYOCARDIAL INFARCTION. THE UPPER REFERENCE LIMIT (URL) OF TROPONIN, DEFINED THE 99TH PERCENTILE OF cTnI DISTRIBUTION IN A REFERENCE POPULATION, HAS BEEN CONFIRMED THE DECISION THRESHOLD FOR HI DIAGNOSIS. Performed By: #### U DINA, LIPID, TSH, BNP, CMP, T7 #### [facility] [address] [place] [address] Dr. Suzie Brooks CBC AUTO DIFFon 02-16-2022 BASO # 0.1 103/ul Normal 0.0-0.1 The [facility] Comment on above: Performed By: #### U DINA, LIPID, TSH, BNP, CMP, T7 #### [facility] [address] [place] [address] Dr. Suzie Brooks Basophils/100 WBC (Bld) 0.4 % Normal 0.2-2.0 The [facility] Comment on above: Performed By: #### U DINA, LIPID, TSH, BNP, CMP, T7 #### [facility] [address] [place] [address] Dr. Suzie Brooks EO # 0.3 103/ul Normal 0.0-0.7 The [facility] Comment on above: Performed By: #### U DINA, LIPID, TSH, BNP, CMP, T7 #### [facility] [address] [place] [address] Dr. Suzie Brooks Eosinophils/100 WBC (Bld) 2.5 % Normal 0.9-7.0 The [facility] Comment on above: Performed By: #### U DINA, LIPID, TSH, BNP, CMP, T7 #### [facility] [address] [place] [address] Dr. Suzie Brooks Erythrocyte distribution width (RBC) [Ratio] 13.9 % Normal 11.0-15.0 The [facility] Comment on above: Performed By: #### U DINA, LIPID, TSH, BNP, CMP, T7 #### [facility] [address] [place] [address] Dr. Suzie Brooks Hematocrit (Bld) [Volume fraction] 46.6 % Normal 42.0-54.0 [facility] Comment on above: Performed By: #### U DINA, LIPID, TSH, BNP, CMP, T7 #### [facility] [address] [place] [address] Dr. Suzie Brooks Hemoglobin (Bld) [Mass/Vol] 15.7 g/dL Normal 14.0-18.0 [facility] Comment on above: Performed By: #### U DINA, LIPID, TSH, BNP, CMP, T7 #### [facility] [address] [address] [address] Suzie Brooks IG # 0.05 10e3/ul Critically high 0.00-0.03 [facility] Comment on above: Performed By: #### U DINA, LIPID, TSH, BNP, CMP, T7 #### [facility] [address] [address] [address] Suzie Brooks IG % 0.4 % Normal 0.0-0.5 [facility] Comment on above: Performed By: #### U DINA, LIPID, TSH, BNP, CMP, T7 #### [facility] [address] [place] [address] Dr. Suzie Brooks LYMPH # 3.7 103/ul Normal 1.2-3.8 [facility] Comment on above: Performed By: #### U DINA, LIPID, TSH, BNP, CMP, T7 #### [facility] [address] [address] [address] Suzie Brooks Lymphocytes/100 WBC (Bld) 26.6 % Normal 20.5-60.0 [facility] Comment on above: Performed By: #### U DINA, LIPID, TSH, BNP, CMP, T7 #### [facility] [address] [address] [address] Suzie Brooks MANUAL DIFF REQ NO Normal [facility] Comment on above: Performed By: #### U DINA, LIPID, TSH, BNP, CMP, T7 #### [facility] [address] [address] [address] Suzie Brooks MCH (RBC) [Entitic mass] 29.2 pg Normal 25.9-34.0 [facility] Comment on above: Performed By: #### U DINA, LIPID, TSH, BNP, CMP, T7 #### [facility] [address] [place] [address] Dr. Suzie Brooks MCHC (RBC) [Mass/Vol] 33.7 g/dL Normal 29.9-35.2 [facility] Comment on above: Performed By: #### U DINA, LIPID, TSH, BNP, CMP, T7 #### [facility] [address] [place] [address] Dr. Suzie Brooks MCV (RBC) [Entitic vol] 86.6 fL Normal 80.0-94.0 [facility] Comment on above: Performed By: #### U DINA, LIPID, TSH, BNP, CMP, T7 #### [facility] [address] [place] [address] Dr. Suzie Brooks MONO # 1.0 103/ul Critically high 0.3-0.8 [facility] Comment on above: Performed By: #### U DINA, LIPID, TSH, BNP, CMP, T7 #### [facility] [address] [place] [address] Dr. Suzie Brooks Monocytes/100 WBC (Bld) 7.2 % Normal 1.7-12.0 [facility] Comment on above: Performed By: #### U DINA, LIPID, TSH, BNP, CMP, T7 #### [facility] [address] [place] [address] Dr. Suzie Brooks NEUT # 8.7 103/ul Critically high 1.4-6.5 [facility] Comment on above: Performed By: #### U DINA, LIPID, TSH, BNP, CMP, T7 #### [facility] [address] [place] [address] Dr. Suzie Brooks Neutrophils/100 WBC (Bld) 62.9 % Normal 43.0-75.0 [facility] Comment on above: Performed By: #### U DINA, LIPID, TSH, BNP, CMP, T7 #### [facility] [address] [place] [address] Dr. Suzie Brooks Platelet mean volume (Bld) [Entitic vol] 9.4 fL Critically low 9.5-13.5 The [facility] Comment on above: Performed By: #### U DINA, LIPID, TSH, BNP, CMP, T7 #### [facility] [address], [place] [address] Dr. Suzie Brooks PLT 277 103/ul Normal 150-450 [facility] Comment on above: Performed By: #### U DINA, LIPID, TSH, BNP, CMP, T7 #### [facility] [address], [place] [address] Dr. Suzie Brooks RBC 5.38 106/ul Normal 4.70-6.10 [facility] Comment on above: Performed By: #### U DINA, LIPID, TSH, BNP, CMP, T7 #### [facility] [address], [place] [address] Dr. Suzie Brooks WBC 13.8 103/ul Critically high 4.0-11.0 The [facility] Comment on above: Performed By: #### U DINA, LIPID, TSH, BNP, CMP, T7 #### [facility] [address], [place] [address] ABD/PELVIS WO CONon 02-16 CT ABD/PELVIS WO CON CT SCAN OF THE ABDO MEN AND PELVIS WITHOUT CONTRAST, 02/16/2022 7:18 PM EDT COMPARISON: CT scan of the abdomen and pelvis, 11/05/2021 CLINICAL HISTORY: CALCULUS OF KIDNEY right flank pain with nausea and history of kidney stones. TECHNIQUE: 3 mm axial images performed through the abdomen and pelvis without contrast. 3 mm sagittal and coronal MPR reconstructions performed. Dose reduction techniques were achieved by using automated exposure control and/or adjustment of mA and/or kV according to patient size and/or use of iterative reconstruction technique. ABDOMINAL CT SCAN FINDINGS: Lung bases are clear. Normal heart size with no significant pericardial effusion. Mild right hydroureteronephrosis identified to the proximal right ureter where there is a 7 mm stone with Hounsfield measurement of 575. This is responsible for patient's symptoms (image #89, series 3 and image #51, series 5). Right extrarenal pelvis present. No other stones identified. Cortical low-attenuation lesion in the posterior cortex of the left intrapolar region measuring 1.9 x 1.5 cm redemonstrated favoring a small cyst. Age-related pancreatic atrophy. Minimal calcification in the left adrenal gland likely a sequela of old hemorrhage or infection. Remaining nonenhanced abdominal solid organs unremarkable. The gallbladder is slightly contracted containing a tiny stone but otherwise has a normal CT appearance. Due to patient's size the most anterior left lateral abdominal and pelvic flank was not included for visualization. PELVIC CT FINDINGS: Prostate, seminal vesicles unremarkable. Urinary bladder is nondistended with a stone in the base of the trigone measuring 4 mm. Some diverticulosis of the colon without CT findings to suspect acute diverticulitis. No bowel obstruction. Portion of the visualized appendix appears normal. No free fluid. Multilevel degenerative changes of the spine. IMPRESSION: 1. Mild right hydroureteronephrosis identified to the proximal right ureter where there is a 7 mm stone with Hounsfield measurement of 575. This stone is responsible for patient's symptoms. 2. Nonobstructing stone in the base of the urinary bladder trigone measuring 4 mm. No other stones identified. 3. Small stable cyst in the posterior cortex of the left kidney. 4. Diverticulosis of the colon without CT findings to suspect acute diverticulitis. No bowel obstruction. Visualized appendix is normal. Electronically authenticated by: Reilly CAST Date: 2022-02-16 20:51 Normal The [facility] URINE PROFILEon 2 Bilirubin Ql (U) Negative Normal NEGATIVE The [facility] Comment on above: Performed By: #### U DINA, LIPID, TSH, BNP, CMP, T7 #### [facility] [address] [place] [address] Dr. Suzie Brooks Clarity (U) CLEAR Normal CLEAR The [facility] Comment on above: Performed By: #### U DINA, LIPID, TSH, BNP, CMP, T7 #### [facility] [address] [address] [address] Suzie Brooks Color (U) YELLOW Normal YELLOW The [facility] Comment on above: Performed By: #### U DINA, LIPID, TSH, BNP, CMP, T7 #### [facility] [address] [address] [address] Suzie Brooks ERUAHD A micrscopic examina tion will be performed if indicated. Normal The [facility] Comment on above: Performed By: #### U DINA, LIPID, TSH, BNP, CMP, T7 #### [facility] [address] [place] [address] Dr. Suzie Brooks Glucose Ql (U) Negative Normal NEGATIVE [facility] Comment on above: Performed By: #### U DINA, LIPID, TSH, BNP, CMP, T7 #### [facility] [address] [address] [address] Suzie Brooks Hemoglobin Ql (U) MODERATE Abnormal NEGATIVE The [facility] Comment on above: Performed By: #### U DINA, LIPID, TSH, BNP, CMP, T7 #### [facility] [address] [address] [address] Suzie Brooks Ketones Ql (U) Negative Normal NEGATIVE The [facility] Comment on above: Performed By: #### U DINA, LIPID, TSH, BNP, CMP, T7 #### [facility] [address] [address] [address] Suzie Brooks LEUKOCYTES Negative Normal NEGATIVE [facility] Comment on above: Performed By: #### U DINA, LIPID, TSH, BNP, CMP, T7 #### [facility] [address] [address] [address] Suzie Brooks Nitrite Ql (U) Negative Normal NEGATIVE [facility] [place] [facility] Comment on above: Performed By: #### U DINA, LIPID, TSH, BNP, CMP, T7 #### [facility] [address] [address] [address] Suzie Brooks pH (U) 5.5 [pH] Normal 5-9 [facility] Comment on above: Performed By: #### U DINA, LIPID, TSH, BNP, CMP, T7 #### [facility] [address] [address] [address] Suzie Brooks SPEC GRAVITY >=1.030 Abnormal 1.005-<=1.02 5 [facility] Comment on above: Performed By: #### U DINA, LIPID, TSH, BNP, CMP, T7 #### [facility] [address] [address] [address] Suzie Brooks UA PROTEIN Negative Normal NEGATIVE/ TRACE The [facility] Comment on above: Performed By: #### U DINA, LIPID, TSH, BNP, CMP, T7 #### [facility] [address] [address] [address] Suzie Brooks UR MICRO IND INDICATED Normal [facility] Comment on above: Performed By: #### U DINA, LIPID, TSH, BNP, CMP, T7 #### [facility] [address] [address] [address] Suzie Brooks Urobilinogen Qn (U) 0.2 {Behzad'U}/dL Normal 0.2 - 1. 0 [facility] Comment on above: Performed By: #### U DINA, LIPID, TSH, BNP, CMP, T7 #### [facility] [address] [address] [address] Suzie Brooks PROF CHEM 8 (BAS METB)on Anion gap [Moles/Vol] 12.2 mmol/L Normal [facility] Comment on above: Performed By: #### U DINA, LIPID, TSH, BNP, CMP, T7 #### [facility] [address] [place] [address] Dr. Suzie Brooks Calcium [Mass/Vol] 8.5 mg/dL Normal 8.5-10.1 [facility] Comment on above: Performed By: #### U DINA, LIPID, TSH, BNP, CMP, T7 #### [facility] [address] [address] [address] Suzie Brooks Chloride [Moles/Vol] 104 mmol/L Normal 98-107 [facility] Comment on above: Performed By: #### U DINA, LIPID, TSH, BNP, CMP, T7 #### [facility] [address] [address] [address] Suzie Brooks CO2 [Moles/Vol] 24.1 mmol/L Normal 21.0-32.0 [facility] Comment on above: Performed By: #### U DINA, LIPID, TSH, BNP, CMP, T7 #### [facility] [address] [place] [address] Dr. Suzie Brooks Creatinine [Mass/Vol] 1.14 mg/dL Normal 0.70-1.30 [facility] Comment on above: Performed By: #### U DINA, LIPID, TSH, BNP, CMP, T7 #### [facility] [address] [address] [address] Suzie Brooks EGFR-AF [place] >60 Normal >=60 [facility] Comment on above: Performed By: #### U DINA, LIPID, TSH, BNP, CMP, T7 #### [facility] [address] [address] [address] Suzie Brooks EGFR-NON AF [place] >60 Normal >=60 [facility] Comment on above: Performed By: #### U DINA, LIPID, TSH, BNP, CMP, T7 #### [facility] [address] [address] [address] Suzie Brooks Glucose [Mass/Vol] 114 mg/dL Critically high 74-106 [facility] Comment on above: Performed By: #### U DINA, LIPID, TSH, BNP, CMP, T7 #### [facility] [address] [place] [address] Dr. Suzie Brooks Potassium [Moles/Vol] 4.3 mmol/L Normal 3.5-5.1 [facility] Comment on above: Performed By: #### U DINA, LIPID, TSH, BNP, CMP, T7 #### [facility] [address] [address] [address] Suzie Brooks Sodium [Moles/Vol] 136 mmol/L Normal 136-145 [facility] Comment on above: Performed By: #### U DINA, LIPID, TSH, BNP, CMP, T7 #### [facility] [address] [address] [address] Suzie Brooks Urea nitrogen [Mass/Vol] 14.0 mg/dL Normal 7.0-18.0 [facility] Comment on above: Performed By: #### U DINA, LIPID, TSH, BNP, CMP, T7 #### [facility] [address] [address] [address] Suzie Brooks Urea nitrogen/Creatinine [Mass ratio] 12.3 mg/mg Normal [facility] Comment on above: Performed By: #### U DINA, LIPID, TSH, BNP, CMP, T7 #### [facility] [address] [address] [address] Suzie Brooks URINE MICROSCOPIC ONLYon BACTERIA NONE SEEN Normal NONE SEEN The [facility] Comment on above: Performed By: #### U DINA, LIPID, TSH, BNP, CMP, T7 #### [facility] [address] [address] [address] Suzie Brooks Bacteria identified Cx Nom (U) NOT INDICATED Normal [facility] Comment on above: Performed By: #### U DINA, LIPID, TSH, BNP, CMP, T7 #### [facility] [address] [address] [address] Suzie Brooks CAST NONE SEEN Normal NONE SEEN The [facility] Comment on above: Performed By: #### U DINA, LIPID, TSH, BNP, CMP, T7 #### [facility] [address] [place] [address] Dr. Suzie Brooks Crystals LM Nom (Urine sed) NONE SEEN Normal NONE SEEN [facility] Comment on above: Performed By: #### U DINA, LIPID, TSH, BNP, CMP, T7 #### [facility] [address] [place] [address] Dr. Suzie Brooks Epithelial cells LM Ql (Urine sed) RARE Normal NONE SEEN /RARE The [facility] Comment on above: Performed By: #### U DINA, LIPID, TSH, BNP, CMP, T7 #### [facility] [address] [place] [address] Dr. Suzie Brooks MUCOUS NONE SEEN Normal NONE SEEN The [facility] Comment on above: Performed By: #### U DINA, LIPID, TSH, BNP, CMP, T7 #### [facility] [address] [place] [address] Dr. Suzie Brooks RBC 5-10 Abnormal 0-2 [facility] Comment on above: Performed By: #### U DINA, LIPID, TSH, BNP, CMP, T7 #### [facility] [address] [place] [address] Dr. Suzie Brooks WBC NONE SEEN Normal NONE SEEN The [facility] Comment on above: Performed By: #### U DINA, LIPID, TSH, BNP, CMP, T7 #### [facility] [address] [place] [address] Dr. Suzie Brooks CITRATE URINE 24HRon 022 Citric Acid, U, 24hr 1312 mg/24 hr Critically high 320-124 0 [facility] Comment on above: Result Comment: This test was developed and its performance characteristics determined by [facility]. It has not been cleared or approved by the Food and Drug Administration. Performed By: #### U DINA, LIPID, TSH, BNP, CMP, T7 #### [facility] [address] [place] [address] Dr. Suzie Brooks Citric Acid, Urine 610 mg/L Normal Undefined [facility] Comment on above: Performed By: #### U DINA, LIPID, TSH, BNP, CMP, T7 #### [facility] [address] [place] [address] Dr. Suzie Brooks OXALATE 24HR URINEon 022 Oxalates, Urine 11 mg/L Normal Undefined [facility] Comment on above: Performed By: #### O [id number] #### [facility] [address] [place] [address] Dr. Suzie Brooks Oxalates, Urine 24hr 24 mg/24 hr Normal 7-44 [facility] Comment on above: Performed By: #### O [id number] #### [facility] [address] [place] [address] Dr. Suzie Brooks MAGNESIUM 24HR URINEon 02-02 Magnesium 24hr Urine 77.4 mg/24 hr Normal 12.0-293.0 [facility] Comment on above: Performed By: #### M AG24 #### [facility] [address] [place] [address] Dr. Suzie Brooks Magnesium UR 3.6 mg/dL Normal Not Estab. [facility] Comment on above: Performed By: #### M AG24 #### [facility] [address] [place] [address] Dr. Suzie Brooks PHOSPHORUS 24HR URINEon 01-10 Phosphorus, Urine 44.1 mg/dL Normal Not Estab. [facility] Comment on above: Performed By: #### U DINA, LIPID, TSH, BNP, CMP, T7 #### [facility] [address], [place] [address] Dr. Suzie Brooks Phosphorus, Urine 24hr 948 mg/24 hr Normal 390-1425 [facility] Comment on above: Performed By: #### U DINA, LIPID, TSH, BNP, CMP, T7 #### [facility] [address], [place] [address] Dr. Suzie Brooks URIC ACID 24 HR URINEon 01-10 Uric Acid, Urine 35.4 mg/dL Normal Not Estab. The [facility] Comment on above: Performed By: #### U DINA, LIPID, TSH, BNP, CMP, T7 #### [facility] [address] [address] [address] Suzie Brooks Uric Acid, Urine 24hr 761.1 mg/24 hr Normal 182.4-936.8 [facility] Comment on above: Performed By: #### U DINA, LIPID, TSH, BNP, CMP, T7 #### [facility] [address] [place] [address] Dr. Suzie Brooks CALCIUM 24 HR URINEon 2021 CALC, 24 HR UR 187.0 mg/24 hr Normal 100.0-300.0 [facility] Comment on above: Performed By: #### U DINA, LIPID, TSH, BNP, CMP, T7 #### [facility] [address] [place], [place] [id number] Dr. Suzie Brooks UR CALCIUM 8.7 mg/dL Normal 5.1-21.0 [facility] Comment on above: Performed By: #### U DINA, LIPID, TSH, BNP, CMP, T7 #### [facility] [address], [place] [address] Dr. Suzie Brooks UR TOT VOL 2150 ml/24 HR Normal [facility] Comment on above: Performed By: #### U DINA, LIPID, TSH, BNP, CMP, T7 #### [facility] [address] [place], [place] [id number] Dr. Suzie Brooks CREA 24 HR URINEon CREA, 24 HR UR 1983.59 mg/24 hr Normal 1,000.00- 2,0 00.00 [facility] Comment on above: Performed By: #### U DINA, LIPID, TSH, BNP, CMP, T7 #### [facility] [address] [address] [address] Suzie Brooks URINE CREAT 92.26 mg/dL Normal 20.00-300.00 [facility] [place] [facility] Comment on above: Performed By: #### U DINA, LIPID, TSH, BNP, CMP, T7 #### [facility] [address] [place] [address] Dr. Suzie Brooks SODIUM 24 HR URINEon 022 NA, 24 HR UR 172 mmol/24 hr Normal 40-220 [facility] Comment on above: Performed By: #### U DINA, LIPID, TSH, BNP, CMP, T7 #### [facility] [address] [place] [address] Dr. Suzie Brooks Sodium (U) [Moles/Vol] 80 mmol/L Normal 30-90 [facility] Comment on above: Performed By: #### U DINA, LIPID, TSH, BNP, CMP, T7 #### [facility] [address] [place] [address] Dr. Suzie Brooks PTH INTACTon 01-31-2022 PTH, Intact 24 pg/mL Normal 15-65 [facility] Comment on above: Performed By: #### U DINA, LIPID, TSH, BNP, CMP, T7 #### [facility] [address] [place] [address] Dr. Suzie Brooks BUNon 01-30-2022 Urea nitrogen [Mass/Vol] 12.0 mg/dL Normal 7.0-18.0 [facility] Comment on above: Performed By: #### U DINA, LIPID, TSH, BNP, CMP, T7 #### [facility] [address] [place] [address] Dr. Suzie Brooks CALCIUMon 01-30-2022 Calcium [Mass/Vol] 8.6 mg/dL Normal 8.5-10.1 [facility] Comment on above: Performed By: #### U DINA, LIPID, TSH, BNP, CMP, T7 #### [facility] [address] [place] [address] Dr. Suzie Brooks CHLORIDEon 01-30-2022 Chloride [Moles/Vol] 104 mmol/L Normal 98-107 [facility] Comment on above: Performed By: #### U DINA, LIPID, TSH, BNP, CMP, T7 #### [facility] [address] [address] [address] Suzie Brooks CO2on 01-30-2022 CO2 [Moles/Vol] 29.3 mmol/L Normal 21.0-32.0 [facility] Comment on above: Performed By: #### U DINA, LIPID, TSH, BNP, CMP, T7 #### [facility] [address] [address] [address] Suzie Brooks CREATININEon 01-30-2022 Creatinine [Mass/Vol] 0.92 mg/dL Normal 0.70-1.30 [facility] Comment on above: Performed By: #### U DINA, LIPID, TSH, BNP, CMP, T7 #### [facility] [facility] [address] [address] [address] Suzie Brooks EGFR-AF P[place] >60 Normal >=60 [facility] Comment on above: Performed By: #### U DINA, LIPID, TSH, BNP, CMP, T7 #### [facility] [address] [address] [address] Suzie Brooks EGFR-NON AF [place] >60 Normal >=60 [facility] Comment on above: Performed By: #### U DINA, LIPID, TSH, BNP, CMP, T7 #### [facility] [address] [address] [address] Suzie Brooks NAon 01-30-2022 Sodium [Moles/Vol] 140 mmol/L Normal 136-145 [facility] Comment on above: Performed By: #### U DINA, LIPID, TSH, BNP, CMP, T7 #### [facility] [address] [address] [address] Suzie Brooks POTASSIUMon 01-30-2022 Potassium [Moles/Vol] 4.0 mmol/L Normal 3.5-5.1 [facility] Comment on above: Performed By: #### U DINA, LIPID, TSH, BNP, CMP, T7 #### [facility] [address], [place] [address] Dr. Suzie Brooks URIC ACID SERUMon 01-30-2022 Urate [Mass/Vol] 5.2 mg/dL Normal 3.5-7.2 [facility] Comment on above: Performed By: #### U DINA, LIPID, TSH, BNP, CMP, T7 #### [facility] [address], [place] [address] Dr. Suzie Brooks US KIDNEYSon 12-18-2021 US KIDNEYS EXAMINATION: [facility]: Kidney stone ; right flank pain COMPARISON: CT abdomen pelvis 11/05/2021 TECHNIQUE: Ultrasound examination was performed of the kidneys and urinary bladder. FINDINGS: RIGHT KIDNEY: No evidence of pelvocaliectasis, mass, or calculi. Mild-moderate cortical thinning. Normal renal cortical parenchymal echogenicity. Color Doppler demonstrates blood flow within the kidney. Kidney: 14.0 x 7.2 x 6.9 cm LEFT KIDNEY: 2.1 cm cortical cyst. No evidence of pelvocaliectasis, mass, or calculi. Mild-moderate cortical thinning. Normal renal cortical parenchymal echogenicity. Color Doppler demonstrates blood flow within the kidney. Kidney: 14.5 x 6.4 x 6.7 cm BLADDER: No visible wall thickening, mass, or calculi. IMPRESSION: 1. No hydronephrosis; suggesting resolution of previously seen hydronephrosis. 2. No visible urinary tract calculi as seen on prior CT study. 3. Unremarkable urinary bladder. No visible stones or mass within the bladder. Electronically authenticated by: BEHZAD CARRASQUILLO Date: 2021-12-18 09:51 Normal [facility] XR KUB 1 VIEWon 11-21-2021 XR KUB 1 VIEW EXAMINATION: XR KUB 1 VIEW HISTORY: Kidney stone , right ureteral stent COMPARISON: XR KUB 11/12/2021 FINDINGS: KIDNEY/URETER - RIGHT: 6 mm stone within inferior pole. Stable right ureteral stent. No visible ureteral stones. KIDNEY/URETER - LEFT: No visible renal or ureteral calcifications. PELVIS: No pelvic calcifications favoring phleboliths. BOWEL: No abnormal dilation or deviation. BONES: No acute abnormality. OTHER: Negative. No abnormal gaseous collections. IMPRESSION: 1. Stable right ureteral stents without appreciable ureteral stones. 2. Right nephrolithiasis, stable. Electronically authenticated by: BEHZAD CARRASQUILLO Date: 2021-11-21 09:45 Normal [facility] XR KUBon 11-15-2021 XR KUB [facility] [place] [address] [place], [place] [id number] XRay Report Signed Patient: Tom Aparicio MR#: [id number] 4 : 1950 Acct:[id number] Age/Sex: 71 / M ADM Date: 11/15/21 Loc: DC Room: Type: [facility] Attending Dr: Miki Zeng MD Ordering Provider: Miki Zeng MD Date of Service: 11/15/21 XR/XR KUB: Ureteral Stone, Kidney stone Copies to: Miki Zeng MD Abdomen 11/15/2021. CLINICAL DATA: Kidney stones. FINDINGS: 2 supine views of the abdomen were obtained. There is a right ureteral stent. There may be a calculus in the right renal pelvis, adjacent to the proximal pigtail of the stent. There may be another calculus adjacent to the stent in the proximal to mid right ureter. Vascular calcifications are noted in the pelvis. XR/XR KUB IMPRESSION: Right ureteral stent and potential calculi as described. 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 This test has not been FDA cleared or approved. This test has been authorized by FDA under an Emergency Use Authorization (EUA). This test has been validated in accordance with the FDA's Guidance Document (Policy for Diagnostics Testing in Laboratories Certified to Perform High Complexity Testing under CLIA prior to Emergency Use Authorization for Coronavirus Disease-2019 during the Public Health Emergency) issued on November 11, 2019. This test is only authorized for the duration of time the declaration that circumstances exist justifying the authorization of the emergency use of in vitro diagnostic tests for detection of SARS-CoV-2 virus and/or diagnosis of COVID-19 infection under section 564(b)(1) of the Act, 21 U.S.C. 360bbb-3(b)(1), unless the authorization is terminated or revoked sooner. PERFORMED BY: [place] [address] PATHOLOGIST STOCK CUTTER JIA MINAYA M.D. Performed By: #### C OVID 19 [facility] #### [address] COVID-19 Positive/NegativeOr dered By: Miki Zeng on 11-13-2021 SARS-CoV-2 (COVID-19) N gene SUKHJINDER+probe Ql (Resp) Negative Negative [facility] Comment on above: Testing for SARS-CoV -2 by RT-PCRThis test was developed and its performance characteristics determined by [employer] ([employer]) and validated at the [facility]. This test has not been FDA cleared or approved. This test has been authorized by FDA under an Emergency Use Authorization (EUA). This test has been validated in accordance with the FDA's Guidance Document (Policy for Diagnostics Testing in Laboratories Certified to Perform High Complexity Testing under CLIA prior to Emergency Use Authorization for Coronavirus Disease-2019 during the Public Health Emergency) issued on November 11, 2019. This test is only authorized for the duration of time the declaration that circumstances exist justifying the authorization of the emergency use of in vitro diagnostic tests for detection of SARS-CoV-2 virus and/or diagnosis of COVID-19 infection under section 564(b)(1) of the Act, 21 U.S.C. 360bbb-3(b)(1), unless the authorization is terminated or revoked sooner. CALCULI, URINARYon 2 2,8 Dihydroxyadenine Normal [facility] Comment on above: Performed By: #### U DINA, LIPID, TSH, BNP, CMP, T7 #### [facility] [address] [address] [address] Suzie Brooks Ammonium Acid Urate Normal [facility] Comment on above: Performed By: #### U DINA, LIPID, TSH, BNP, CMP, T7 #### [facility] [address] [address] [address] Suzie Brooks Bilirubin Ql (U) [facility] Comment on above: Performed By: #### U DINA, LIPID, TSH, BNP, CMP, T7 #### [facility] [address] [address] [address] Suzie Brooks Ca Oxalate Dihydrate [facility] Comment on above: Performed By: #### U DINA, LIPID, TSH, BNP, CMP, T7 #### [facility] [address] [address] [address] Suzie Brooks CaHPO4 (Brushite) [facility] Comment on above: Performed By: #### U DINA, LIPID, TSH, BNP, CMP, T7 #### [facility] [address] [address] [address] Suzie Brooks Calcium Bilirubinate [facility] Comment on above: Performed By: #### U DINA, LIPID, TSH, BNP, CMP, T7 #### [facility] [address] [address] [address] Suzie Brooks Calcium Carbonate Normal [facility] Comment on above: Performed By: #### U DINA, LIPID, TSH, BNP, CMP, T7 #### [facility] [address] [address] [address] Suzie Brooks Calcium Oxalate Monohydrate 70 % [facility] Comment on above: Performed By: #### U DINA, LIPID, TSH, BNP, CMP, T7 #### [facility] [address] [address] [address] Suzie Brooks Calcium Palmitate [facility] Comment on above: Performed By: #### U DINA, LIPID, TSH, BNP, CMP, T7 #### [facility] [address] [address] [address] Suzie Brooks Calcium Phosphate Normal [facility] Comment on above: Performed By: #### U DINA, LIPID, TSH, BNP, CMP, T7 #### [facility] [address] [address] [address] Suzie Brooks Calcium Stearate Normal [facility] Comment on above: Performed By: #### U DINA, LIPID, TSH, BNP, CMP, T7 #### [facility] [address] [address] [address] Suzie Brooks Carbonate Apatite Normal [facility] Comment on above: Performed By: #### U DINA, LIPID, TSH, BNP, CMP, T7 #### [facility] [address] [address] [address] Suzie Brooks Cellular Material Normal [facility] Comment on above: Performed By: #### U DINA, LIPID, TSH, BNP, CMP, T7 #### [facility] [address] [address] [address] Suzie Brooks Cholesterol Normal [facility] Comment on above: Performed By: #### U DINA, LIPID, TSH, BNP, CMP, T7 #### [facility] [address] [address] [address] Suzie Brooks Color (U) Brown Normal [facility] Comment on above: Performed By: #### U DINA, LIPID, TSH, BNP, CMP, T7 #### [facility] [address] [address] [address] Suzie Brooks Comment Normal [facility] Comment on above: Performed By: #### U DINA, LIPID, TSH, BNP, CMP, T7 #### [facility] [address] [address] [address] Suzie Brooks Comment: Comment Normal [facility] Comment on above: Result Comment: Fantasma baez questions regarding Calculi Analysis contact [facility] at: [phone]. Performed By: #### U DINA, LIPID, TSH, BNP, CMP, T7 #### [facility] [address] [address] [address] Suzie Brooks Composition Comment Normal [facility] Comment on above: Result Comment: Perc entage (Represents the % composition) Performed By: #### U DINA, LIPID, TSH, BNP, CMP, T7 #### [facility] [address] [address] [address] Suzie Brooks Cystine Normal [facility] Comment on above: Performed By: #### U DINA, LIPID, TSH, BNP, CMP, T7 #### [facility] [address] [address] [address] Suzie Brooks Disclaimer: Comment Normal [facility] Comment on above: Result Comment: This test was developed and its performance characteristics determined by [employer]. It has not been cleared or approved by the Food and Drug Administration. Performed By: #### U DINA, LIPID, TSH, BNP, CMP, T7 #### [facility] [address] [place] [address] Dr. Suzie Brooks Dried Blood Normal [facility] Comment on above: Performed By: #### U DINA, LIPID, TSH, BNP, CMP, T7 #### [facility] [address] [address] [address] Suzie Brooks Drug or Metabolite Normal [facility] Comment on above: Performed By: #### U DINA, LIPID, TSH, BNP, CMP, T7 #### [facility] [address] [address] [address] Suzie Brooks Hydroxyapatite Normal [facility] Comment on above: Performed By: #### U DINA, LIPID, TSH, BNP, CMP, T7 #### [facility] [address] [address] [address] Suzie Brooks Mg NH4 PO4 (Struvite) [facility] Comment on above: Performed By: #### U DINA, LIPID, TSH, BNP, CMP, T7 #### [facility] [address] [address] [address] Suzie Brooks MgHPO4 (Newberyite) Normal [facility] Comment on above: Performed By: #### U DINA, LIPID, TSH, BNP, CMP, T7 #### [facility] [address] [address] [address] Suzie Brooks Other component(s) Normal [facility] Comment on above: Performed By: #### U DINA, LIPID, TSH, BNP, CMP, T7 #### [facility] [address] [address] [address] Suzie Brooks PDF . Normal [facility] Comment on above: Performed By: #### U DINA, LIPID, TSH, BNP, CMP, T7 #### [facility] [address] [address] [address] Suzie Brooks Photo Comment [facility] Comment on above: Result Comment: Phot ograph will follow under a separate cover Performed By: #### U DINA, LIPID, TSH, BNP, CMP, T7 #### [facility] [address] [address] [address] Suzie Brooks Please note: Comment Normal [facility] Comment on above: Result Comment: Calc shamika report will follow via computer, mail or pediatric psychiatrist delivery. Performed By: #### U DINA, LIPID, TSH, BNP, CMP, T7 #### [facility] [address] [address] [address] Suzie Brooks Size 3x2 [facility] Comment on above: Result Comment: Mult iple pieces received. Dimensions of the largest piece reported. Performed By: #### U DINA, LIPID, TSH, BNP, CMP, T7 #### [facility] [address] [address] [address] Suzie Brooks Sodium Acid Urate Normal [facility] Comment on above: Performed By: #### U DINA, LIPID, TSH, BNP, CMP, T7 #### [facility] [address] [address] [address] Suzie Brooks Source Comment [facility] Comment on above: Result Comment: Jessica Reese Performed By: #### U DINA, LIPID, TSH, BNP, CMP, T7 #### [facility] [address] [address] [address] Suzie Brooks Triamterene [facility] Comment on above: Performed By: #### U DINA, LIPID, TSH, BNP, CMP, T7 #### [facility] [address], [place] [address] Dr. Suzie Brooks Uric Acid 30 % Normal [facility] Comment on above: Performed By: #### U DINA, LIPID, TSH, BNP, CMP, T7 #### [facility] [address], [place] [address] Dr. Suzie Brooks Uric Acid Dihydrate Normal [facility] Comment on above: Performed By: #### U DINA, LIPID, TSH, BNP, CMP, T7 #### [facility] [address], [place] [address] Dr. Suzie Brooks Weight 12 mg Normal [facility] Comment on above: Performed By: #### U DINA, LIPID, TSH, BNP, CMP, T7 #### [facility] [address], [place] [address] Dr. Suzie Brooks Xanthine Normal [facility] Comment on above: Performed By: #### U DINA, LIPID, TSH, BNP, CMP, T7 #### [facility] [address], [place] [address] Dr. Suzie Brooks XR KUB 1 VIEWon 11-12-2021 XR KUB 1 VIEW EXAMINATION: XR KUB 1 VIEW HISTORY: Kidney stone COMPARISON: 11/06/2021 FINDINGS: KIDNEY/URETER - RIGHT: Right ureteral stent. Calcification projects medial to the mid stent just below the right L5 transverse process, a ureterolith is suspected. Nephrolithiasis KIDNEY/URETER - LEFT: Nephrolithiasis PELVIS: No visible ureteral calcifications. Any visible calcifications favor phleboliths. BOWEL: No abnormal dilation or deviation. BONES: No acute abnormality. OTHER: Negative. No abnormal gaseous collections. IMPRESSION: Right ureteral stent with mid ureterolith Bilateral nephrolithiasis Electronically authenticated by: RAFAEL GRAVES Date: 2021-11-12 13:18 Normal [facility] XR CHEST 2 Von 11-08-2021 XR CHEST 2 V EXAM:XR CHEST 2 V INDICATION:Kidney stone. COMPARISON: CT abdomen and pelvis on 06/04/2021. FINDINGS: PA and lateral chest radiograph. The heart size is enlarged. Calcified aortic knob. There is elevation of the right hemidiaphragm. No gross abnormalities of the visualized osseous structure. The lungs are clear without any focal consolidative opacities. There is no pleural effusion. No obvious pneumothorax. There are multilevel minimal to mild spondylotic changes of the thoracic spine. IMPRESSION: Cardiomegaly. Otherwise, no acute cardiopulmonary findings. Electronically authenticated by: CARLOS GROSS Date: 2021-11-08 15:50 Normal [facility] CBC AUTO DIFFon 11-07-2021 BASO # 0.0 103/ul Normal 0.0-0.1 [facility] Comment on above: Performed By: #### U DINA, LIPID, TSH, BNP, CMP, T7 #### [facility] [address] [place] [address] Dr. Suzie Brooks Basophils/100 WBC (Bld) 0.2 % Normal 0.2-2.0 [facility] Comment on above: Performed By: #### U DINA, LIPID, TSH, BNP, CMP, T7 #### [facility] [address] [place] [address] Dr. Suzie Brooks EO # 0.0 103/ul Normal 0.0-0.7 [facility] Comment on above: Performed By: #### U DINA, LIPID, TSH, BNP, CMP, T7 #### [facility] [address] [place] [address] Dr. Suzie Brooks Eosinophils/100 WBC (Bld) 0.0 % Critically low 0.9-7.0 [facility] Comment on above: Performed By: #### U DINA, LIPID, TSH, BNP, CMP, T7 #### [facility] [address] [place] [address] Dr. Suzie Brooks Erythrocyte distribution width (RBC) [Ratio] 14.0 % Normal 11.0-15.0 [facility] Comment on above: Performed By: #### U DINA, LIPID, TSH, BNP, CMP, T7 #### [facility] [address] [place] [address] Dr. Suzie Brooks Hematocrit (Bld) [Volume fraction] 41.8 % Critically low 42.0-54.0 [facility] Comment on above: Performed By: #### U DINA, LIPID, TSH, BNP, CMP, T7 #### [facility] [address] [address] [address] Suzie Brooks Hemoglobin (Bld) [Mass/Vol] 13.7 g/dL Critically low 14.0-18.0 [facility] Comment on above: Performed By: #### U DINA, LIPID, TSH, BNP, CMP, T7 #### [facility] [address] [place] [address] Dr. Suzie Brooks IG # 0.14 10e3/ul Critically high 0.00-0.03 [facility] Comment on above: Performed By: #### U DINA, LIPID, TSH, BNP, CMP, T7 #### [facility] [address] [place] [address] Dr. Suzie Brooks IG % 0.9 % Critically high 0.0-0.5 [facility] Comment on above: Performed By: #### U DINA, LIPID, TSH, BNP, CMP, T7 #### [facility] [address] [place] [address] Dr. Suzie Brooks LYMPH # 1.6 103/ul Normal 1.2-3.8 [facility] Comment on above: Performed By: #### U DINA, LIPID, TSH, BNP, CMP, T7 #### [facility] [address] [place] [address] Dr. Suzie Brooks Lymphocytes/100 WBC (Bld) 10.2 % Critically low 20.5-60.0 [facility] Comment on above: Performed By: #### U DINA, LIPID, TSH, BNP, CMP, T7 #### [facility] [address] [place] [address] Dr. Suzie Brooks MANUAL DIFF REQ NO Normal [facility] Comment on above: Performed By: #### U DINA, LIPID, TSH, BNP, CMP, T7 #### [facility] [address] [place] [address] Dr. Suzie Brooks MCH (RBC) [Entitic mass] 28.8 pg Normal 25.9-34.0 [facility] Comment on above: Performed By: #### U DINA, LIPID, TSH, BNP, CMP, T7 #### [facility] [address] [place] [address] Dr. Suzie Brooks MCHC (RBC) [Mass/Vol] 32.8 g/dL Normal 29.9-35.2 [facility] Comment on above: Performed By: #### U DINA, LIPID, TSH, BNP, CMP, T7 #### [facility] [address] [address] [address] Suzie Brooks MCV (RBC) [Entitic vol] 87.8 fL Normal 80.0-94.0 [facility] Comment on above: Performed By: #### U DINA, LIPID, TSH, BNP, CMP, T7 #### [facility] [address] [address] [address] Suzie Brooks MONO # 1.0 103/ul Critically high 0.3-0.8 [facility] Comment on above: Performed By: #### U DINA, LIPID, TSH, BNP, CMP, T7 #### [facility] [address] [address] [address] Suzie Brooks Monocytes/100 WBC (Bld) 6.6 % Normal 1.7-12.0 [facility] Comment on above: Performed By: #### U DINA, LIPID, TSH, BNP, CMP, T7 #### [facility] [address] [address] [address] Suzie Brooks NEUT # 13.0 103/ul Critically high 1.4-6.5 [facility] Comment on above: Performed By: #### U DINA, LIPID, TSH, BNP, CMP, T7 #### [facility] [address] [address] [address] Suzie Brooks Neutrophils/100 WBC (Bld) 82.1 % Critically high 43.0-75.0 [facility] Comment on above: Performed By: #### U DINA, LIPID, TSH, BNP, CMP, T7 #### [facility] [facility] [place] [facility] [address] [place] [address] Dr. Suzie Brooks Platelet mean volume (Bld) [Entitic vol] 9.3 fL Critically low 9.5-13.5 [facility] Comment on above: Performed By: #### U DINA, LIPID, TSH, BNP, CMP, T7 #### [facility] [facility] [address] [address] [address] Suzie Brooks PLT 301 103/ul Normal 150-450 [facility] Comment on above: Performed By: #### U DINA, LIPID, TSH, BNP, CMP, T7 #### [facility] [place] [address] [address] [address] Suzie Brooks RBC 4.76 106/ul Normal 4.70-6.10 [facility] Comment on above: Performed By: #### U DINA, LIPID, TSH, BNP, CMP, T7 #### [facility] [address] [place] [address] Dr. Suzie Brooks WBC 15.9 103/ul Critically high 4.0-11.0 [facility] Comment on above: Performed By: #### U DINA, LIPID, TSH, BNP, CMP, T7 #### [facility] [address] [place] [address] Dr. Suzie Brooks POINT OF CARE GLUCOSEon 10-11 Glucose [Mass/Vol] 128 mg/dL Critically high 74-106 [facility] Comment on above: Performed By: #### U DINA, LIPID, TSH, BNP, CMP, T7 #### [facility] [address] [place] [address] Dr. Suzie Brooks PROF 14(COMP METB)on 022 Albumin [Mass/Vol] 3.1 g/dL Critically low 3.4-5.0 [facility] Comment on above: Performed By: #### M AG24 #### [facility] [address] [place] [address] Dr. Suzie Brooks Albumin/Globulin [Mass ratio] 0.9 {ratio} Normal [facility] Comment on above: Performed By: #### M AG24 #### [facility] [address] [place] [address] Dr. Suzie Brooks ALP [Catalytic activity/Vol] 52 U/L Normal 46-116 [facility] Comment on above: Performed By: #### M AG24 #### [facility] [address] [place] [address] Dr. Suzie Brooks ALT [Catalytic activity/Vol] 39 U/L Normal 16-63 [facility] Comment on above: Performed By: #### M AG24 #### [facility] [address] [place] [address] Dr. Suzie Brooks Anion gap [Moles/Vol] 14.7 mmol/L Normal [facility] Comment on above: Performed By: #### M AG24 #### [facility] [address] [place] [address] Dr. Suzie Brooks AST [Catalytic activity/Vol] 27 U/L Normal 15-37 [facility] Comment on above: Performed By: #### M AG24 #### [facility] [address] [place] [address] Dr. Suzie Brooks Bilirubin [Mass/Vol] 0.4 mg/dL Normal 0.2-1.3 [facility] Comment on above: Performed By: #### M AG24 #### [facility] [address] [place] [address] Dr. Suzie Brooks Calcium [Mass/Vol] 7.7 mg/dL Critically low 8.5-10.1 [facility] Comment on above: Performed By: #### M AG24 #### [facility] [address] [place] [address] Dr. Suzie Brooks Chloride [Moles/Vol] 104 mmol/L Normal 98-107 [facility] Comment on above: Performed By: #### M AG24 #### [facility] [address] [place] [address] Dr. Suzie Brooks CO2 [Moles/Vol] 23.4 mmol/L Normal 22.0-30.0 [facility] Comment on above: Performed By: #### M AG24 #### [facility] [address] [place] [address] Dr. Suzie Brooks Creatinine [Mass/Vol] 1.03 mg/dL Normal 0.66-1.25 [facility] Comment on above: Performed By: #### M AG24 #### [facility] [address] [place] [address] Dr. Suzie Brooks EGFR-AF [place] >60 Normal >=60 [facility] Comment on above: Performed By: #### M AG24 #### [facility] [address] [address] [address] Suzie Brooks EGFR-NON AF [place] >60 Normal >=60 [facility] Comment on above: Performed By: #### M AG24 #### [facility] [address] [address] [address] Suzie Brooks Globulin (S) [Mass/Vol] 3.5 g/dL Normal [facility] Comment on above: Performed By: #### M AG24 #### [facility] [address] [address] [address] Suzie Brooks Glucose [Mass/Vol] 142 mg/dL Critically high 74-106 [facility] Comment on above: Performed By: #### M AG24 #### [facility] [address] [address] [address] Suzie Brooks Potassium [Moles/Vol] 4.1 mmol/L Normal 3.4-5.0 [facility] Comment on above: Performed By: #### M AG24 #### [facility] [address] [address] [address] Suzie Brooks Protein [Mass/Vol] 6.6 g/dL Normal 6.1-8.2 [facility] Comment on above: Performed By: #### M AG24 #### [facility] [address] [address] [address] Suzie Brooks Sodium [Moles/Vol] 138 mmol/L Normal 137-145 [facility] Comment on above: Performed By: #### M AG24 #### [facility] [address] [address] [address] Suzie Brooks Urea nitrogen [Mass/Vol] 15.0 mg/dL Normal 7.0-18.0 [facility] Comment on above: Performed By: #### M AG24 #### [facility] [address] [address] [address] Suzie Brooks Urea nitrogen/Creatinine [Mass ratio] 14.6 mg/mg Normal [facility] Comment on above: Performed By: #### M AG24 #### [facility] [address] [address] [address] Suzie Brooks CBC AUTO DIFFon 11-06-2021 BASO # 0.1 103/ul Normal 0.0-0.1 [facility] Comment on above: Performed By: #### U DINA, LIPID, TSH, BNP, CMP, T7 #### [facility] [address] [place] [address] Dr. Suzie Brooks Basophils/100 WBC (Bld) 0.5 % Normal 0.2-2.0 [facility] Comment on above: Performed By: #### U DINA, LIPID, TSH, BNP, CMP, T7 #### [facility] [address] [place] [address] Dr. Suzie Brooks EO # 0.3 103/ul Normal 0.0-0.7 [facility] [place] Comment on above: Performed By: #### U DINA, LIPID, TSH, BNP, CMP, T7 #### [facility] [address] [place] [address] Dr. Suzie Brooks Eosinophils/100 WBC (Bld) 2.1 % Normal 0.9-7.0 [facility] Comment on above: Performed By: #### U DINA, LIPID, TSH, BNP, CMP, T7 #### [facility] [address] [place] [address] Dr. Suzie Brooks Erythrocyte distribution width (RBC) [Ratio] 13.8 % Normal 11.0-15.0 [facility] [place] Comment on above: Performed By: #### U DINA, LIPID, TSH, BNP, CMP, T7 #### [facility] [address] [place] [address] Dr. Suzie Brooks Hematocrit (Bld) [Volume fraction] 46.9 % Normal 42.0-54.0 [facility] Comment on above: Performed By: #### U DINA, LIPID, TSH, BNP, CMP, T7 #### [facility] [address] [place] [address] Dr. Suzie Brooks Hemoglobin (Bld) [Mass/Vol] 15.4 g/dL Normal 14.0-18.0 [facility] Comment on above: Performed By: #### U DINA, LIPID, TSH, BNP, CMP, T7 #### [facility] [address] [place] [address] Dr. Suzie Brooks IG # 0.05 10e3/ul Critically high 0.00-0.03 [facility] Comment on above: Performed By: #### U DINA, LIPID, TSH, BNP, CMP, T7 #### [facility] [address] [place] [address] Dr. Suzie Brooks IG % 0.4 % Normal 0.0-0.5 [facility] Comment on above: Performed By: #### U DINA, LIPID, TSH, BNP, CMP, T7 #### [facility] [address] [place] [address] Dr. Suzie Brooks LYMPH # 2.8 103/ul Normal 1.2-3.8 [facility] Comment on above: Performed By: #### U DINA, LIPID, TSH, BNP, CMP, T7 #### [facility] [address] [place] [address] Dr. Suzie Brooks Lymphocytes/100 WBC (Bld) 22.5 % Normal 20.5-60.0 [facility] Comment on above: Performed By: #### U DINA, LIPID, TSH, BNP, CMP, T7 #### [facility] [address] [place] [address] Dr. Suzie Brooks MANUAL DIFF REQ NO Normal [facility] Comment on above: Performed By: #### U DINA, LIPID, TSH, BNP, CMP, T7 #### [facility] [address] [place] [address] Dr. Suzie Brooks MCH (RBC) [Entitic mass] 28.6 pg Normal 25.9-34.0 [facility] Comment on above: Performed By: #### U DINA, LIPID, TSH, BNP, CMP, T7 #### [facility] [address] [place] [address] Dr. Suzie Brooks MCHC (RBC) [Mass/Vol] 32.8 g/dL Normal 29.9-35.2 [facility] Comment on above: Performed By: #### U DINA, LIPID, TSH, BNP, CMP, T7 #### [facility] [address] [place] [address] Dr. Suzie Brooks MCV (RBC) [Entitic vol] 87.0 fL Normal 80.0-94.0 [facility] Comment on above: Performed By: #### U DINA, LIPID, TSH, BNP, CMP, T7 #### [facility] [address] [address] [address] Suzie Brooks MONO # 0.9 103/ul Critically high 0.3-0.8 [facility] Comment on above: Performed By: #### U DINA, LIPID, TSH, BNP, CMP, T7 #### [facility] [address] [place] [address] Dr. Suzie Brooks Monocytes/100 WBC (Bld) 6.9 % Normal 1.7-12.0 [facility] [place] Comment on above: Performed By: #### U DINA, LIPID, TSH, BNP, CMP, T7 #### [facility] [address] [place] [address] Dr. Suzie Brooks NEUT # 8.4 103/ul Critically high 1.4-6.5 [facility] Comment on above: Performed By: #### U DINA, LIPID, TSH, BNP, CMP, T7 #### [facility] [address] [place] [address] Dr. Suzie Brooks Neutrophils/100 WBC (Bld) 67.6 % Normal 43.0-75.0 [facility] Comment on above: Performed By: #### U DINA, LIPID, TSH, BNP, CMP, T7 #### [facility] [address] [place] [address] Dr. Suzie Brooks Platelet mean volume (Bld) [Entitic vol] 9.6 fL Normal 9.5-13.5 [facility] [place] Comment on above: Performed By: #### U DINA, LIPID, TSH, BNP, CMP, T7 #### [facility] [address] [place] [address] Dr. Suzie Brooks PLT 284 103/ul Normal 150-450 [facility] Comment on above: Performed By: #### U DINA, LIPID, TSH, BNP, CMP, T7 #### [facility] [address] [place] [address] Dr. Suzie Brooks RBC 5.39 106/ul Normal 4.70-6.10 [facility] Comment on above: Performed By: #### U DINA, LIPID, TSH, BNP, CMP, T7 #### [facility] [address] [place] [address] Dr. Suzie Brooks WBC 12.5 103/ul Critically high 4.0-11.0 [facility] Comment on above: Performed By: #### U DINA, LIPID, TSH, BNP, CMP, T7 #### [facility] [address] [place] [address] Dr. Suzie Brooks CULTURE BLOODon 11-06-2021 Microscopic examination of blood, culture Culture Observations: NO GROWTH AT 5 DAYS. Normal [facility] Comment on above: Performed By: #### M AG24 #### [facility] [address] [place] [address] Dr. Suzie Brooks CULTURE URINEon 11-06-2021 CULTURE URINE Culture Observations : NO GROWTH. Normal [facility] Comment on above: Performed By: #### M AG24 #### [facility] [address] [place] [address] Dr. Suzie Brooks [facility]on 10-10 SARS-CoV-2 (COVID-19) RNA SUKHJINDER+probe Ql (Unsp spec) Not detected Normal NOT DETECTED The [facility] Comment on above: Result Comment: When diagnostic testing is negative, the possibility of a false negative should be considered in the context of a patient's recent exposures and the presence of clinical signs and symptoms consistent with SARS-CoV-2. This test is not yet approved or cleared by the [place] Food and Drug Administration (FDA). This test was developed by [employer], [place], [place]. The performance characteristics of this test were validated by The [facility]. The results are not intended to be used as the sole means for clinical diagnosis or patient management decisions. The [facility] is authorized under Clinical Laboratory Improvement Amendments (CLIA) to perform high- complexity testing. This test is not yet approved or cleared by the [place] FDA. When there are no FDA-approved or cleared tests available, and other criteria are met, FDA can make tests available under an emergency access mechanism called an Emergency Use Authorization (EUA). The EUA for this test is supported by the Digital Engineer of Health and Human Service's declaration that circumstances exist to justify the emergency use of in vitro diagnostics for the detection and/or diagnosis of the virus that causes COVID-19. This EUA will remain in effect for the duration of the COVID-19 declaration justifying emergency of IVDs, unless it is terminated or revoked by the FDA (after which the test may no longer be used). Performed By: #### U DINA, LIPID, TSH, BNP, CMP, T7 #### [facility] [address] [place] [address] Dr. Suzie Brooks ER URINE PROFILEon 2 Bilirubin Ql (U) Negative Normal NEGATIVE [facility] Comment on above: Performed By: #### U DINA, LIPID, TSH, BNP, CMP, T7 #### [facility] [address] [place] [address] Dr. Suzie Brooks Clarity (U) CLEAR Normal CLEAR [facility] Comment on above: Performed By: #### U DINA, LIPID, TSH, BNP, CMP, T7 #### [facility] [address] [place] [address] Dr. Suzie Brooks Color (U) YELLOW Normal YELLOW [facility] Comment on above: Performed By: #### U DINA, LIPID, TSH, BNP, CMP, T7 #### [facility] [address] [place] [address] Dr. Suzie Brooks ERUAHD A micrscopic examina tion will be performed if indicated. Normal [facility] Comment on above: Performed By: #### U DINA, LIPID, TSH, BNP, CMP, T7 #### [facility] [address] [place] [address] Dr. Suzie Brooks Glucose Ql (U) Negative Normal NEGATIVE [facility] Comment on above: Performed By: #### U DINA, LIPID, TSH, BNP, CMP, T7 #### [facility] [address] [address] [address] Suzie Brooks Hemoglobin Ql (U) LARGE Abnormal NEGATIVE [facility] Comment on above: Performed By: #### U DINA, LIPID, TSH, BNP, CMP, T7 #### [facility] [address] [address] [address] Suzie Brooks Ketones Ql (U) Negative Normal NEGATIVE [facility] Comment on above: Performed By: #### U DINA, LIPID, TSH, BNP, CMP, T7 #### [facility] [address] [address] [address] Suzie Brooks LEUKOCYTES TRACE Abnormal NEGATIVE [facility] Comment on above: Performed By: #### U DINA, LIPID, TSH, BNP, CMP, T7 #### [facility] [address] [place] [address] Dr. Suzie Brooks Nitrite Ql (U) Negative Normal NEGATIVE The [facility] Comment on above: Performed By: #### U DINA, LIPID, TSH, BNP, CMP, T7 #### [facility] [address] [place] [address] Dr. Suzie Brooks pH (U) 5.0 [pH] Normal 5-9 [facility] Comment on above: Performed By: #### U DINA, LIPID, TSH, BNP, CMP, T7 #### [facility] [address] [address] [address] Suzie rBooks Protein (U) [Mass/Vol] 100 mg/dL Abnormal NEGATIVE/ TRACE The [facility] Comment on above: Performed By: #### U DINA, LIPID, TSH, BNP, CMP, T7 #### [facility] [address] [place] [address] Dr. Suzie Brooks SPEC GRAVITY 1.030 Abnormal 1.005-<=1.02 5 [facility] Comment on above: Performed By: #### U DINA, LIPID, TSH, BNP, CMP, T7 #### [facility] [address] [place] [address] Dr. Suzie Brooks UR MICRO IND INDICATED Normal [facility] Comment on above: Performed By: #### U DINA, LIPID, TSH, BNP, CMP, T7 #### [facility] [address] [address] [address] Suzie Brooks Urobilinogen Qn (U) 0.2 {Behzad'U}/dL Normal 0.2 - 1. 0 [facility] Comment on above: Performed By: #### U DINA, LIPID, TSH, BNP, CMP, T7 #### [facility] [address] [address] [address] Suzie Brooks LACTATE/LACTIC ACIDon 2021 Lactate [Moles/Vol] 1.0 mmol/L Normal 0.7-2.0 [facility] Comment on above: Performed By: #### U DINA, LIPID, TSH, BNP, CMP, T7 #### [facility] [address] [place] [address] Dr. Suzie Brooks PROF 14(COMP METB)on 022 Albumin [Mass/Vol] 3.8 g/dL Normal 3.4-5.0 [facility] Comment on above: Performed By: #### U DINA, LIPID, TSH, BNP, CMP, T7 #### [facility] [address] [address] [address] Suzie Brooks Albumin/Globulin [Mass ratio] 1.0 {ratio} Normal [facility] Comment on above: Performed By: #### U DINA, LIPID, TSH, BNP, CMP, T7 #### [facility] [address] [address] [address] Suzie Brooks ALP [Catalytic activity/Vol] 66 U/L Normal 46-116 [facility] Comment on above: Performed By: #### U DINA, LIPID, TSH, BNP, CMP, T7 #### [facility] [address] [address] [address] Suzie Brooks ALT [Catalytic activity/Vol] 52 U/L Normal 16-63 [facility] Comment on above: Performed By: #### U DINA, LIPID, TSH, BNP, CMP, T7 #### [facility] [address] [address] [address] Suzie Brooks Anion gap [Moles/Vol] 14.7 mmol/L Normal [facility] Comment on above: Performed By: #### U DINA, LIPID, TSH, BNP, CMP, T7 #### [facility] [address] [address] [address] Suzie Brooks AST [Catalytic activity/Vol] 40 U/L Critically high 15-37 [facility] Comment on above: Performed By: #### U DINA, LIPID, TSH, BNP, CMP, T7 #### [facility] [address] [address] [address] Suzie Brooks Bilirubin [Mass/Vol] 0.6 mg/dL Normal 0.2-1.3 [facility] Comment on above: Performed By: #### U DINA, LIPID, TSH, BNP, CMP, T7 #### [facility] [address] [address] [address] Suzie Brooks Calcium [Mass/Vol] 8.2 mg/dL Critically low 8.5-10.1 [facility] Comment on above: Performed By: #### U DINA, LIPID, TSH, BNP, CMP, T7 #### [facility] [address] [address] [address] Suzie Brooks Chloride [Moles/Vol] 102 mmol/L Normal 98-107 [facility] Comment on above: Performed By: #### U DINA, LIPID, TSH, BNP, CMP, T7 #### [facility] [address] [address] [address] Suzie Brooks CO2 [Moles/Vol] 27.4 mmol/L Normal 22.0-30.0 [facility] Comment on above: Performed By: #### U DINA, LIPID, TSH, BNP, CMP, T7 #### [facility] [address] [address] [address] Suzie Brooks Creatinine [Mass/Vol] 1.05 mg/dL Normal 0.66-1.25 [facility] Comment on above: Performed By: #### U DINA, LIPID, TSH, BNP, CMP, T7 #### [facility] [address] [address] [address] Suzie Brooks EGFR-AF [place] >60 Normal >=60 [facility] Comment on above: Performed By: #### U DINA, LIPID, TSH, BNP, CMP, T7 #### [facility] [address] [address] [address] Suzie Brooks EGFR-NON AF PAPUA [place] >60 Normal >=60 [facility] Comment on above: Performed By: #### U DINA, LIPID, TSH, BNP, CMP, T7 #### [facility] [address] [address] [address] Suzie Brooks Globulin (S) [Mass/Vol] 3.7 g/dL Normal [facility] Comment on above: Performed By: #### U DINA, LIPID, TSH, BNP, CMP, T7 #### [facility] [address] [address] [address] Suzie Brooks Glucose [Mass/Vol] 124 mg/dL Critically high 74-106 [facility] Comment on above: Performed By: #### U DINA, LIPID, TSH, BNP, CMP, T7 #### [facility] [address] [address] [address] Suzie Brooks Potassium [Moles/Vol] 4.1 mmol/L Normal 3.4-5.0 [facility] Comment on above: Performed By: #### U DINA, LIPID, TSH, BNP, CMP, T7 #### [facility] [address] [address] [address] Suzie Brooks Protein [Mass/Vol] 7.5 g/dL Normal 6.1-8.2 [facility] Comment on above: Performed By: #### U DINA, LIPID, TSH, BNP, CMP, T7 #### [facility] [address] [address] [address] Suzie Brooks Sodium [Moles/Vol] 140 mmol/L Normal 137-145 [facility] Comment on above: Performed By: #### U DINA, LIPID, TSH, BNP, CMP, T7 #### [facility] [address] [place] [address] Dr. Suzie Brooks Urea nitrogen [Mass/Vol] 16.0 mg/dL Normal 7.0-18.0 [facility] Comment on above: Performed By: #### U DINA, LIPID, TSH, BNP, CMP, T7 #### [facility] [address] [address] [address] Suzie Brooks Urea nitrogen/Creatinine [Mass ratio] 15.2 mg/mg Normal [facility] Comment on above: Performed By: #### U DINA, LIPID, TSH, BNP, CMP, T7 #### [facility] [address] [place] [address] Dr. Suzie Brooks URINE MICROSCOPIC ONLYon BACTERIA SMALL Abnormal NONE SEEN The [facility] Comment on above: Performed By: #### U DINA, LIPID, TSH, BNP, CMP, T7 #### [facility] [address] [place] [address] Dr. Suzie Brooks Bacteria identified Cx Nom (U) INDICATED Normal [facility] Comment on above: Performed By: #### U DINA, LIPID, TSH, BNP, CMP, T7 #### [facility] [address] [place] [address] Dr. Suzie Brooks CAST NONE SEEN Normal NONE SEEN The [facility] Comment on above: Performed By: #### U DINA, LIPID, TSH, BNP, CMP, T7 #### [facility] [address] [place] [address] Dr. Suzie Brooks Crystals LM Nom (Urine sed) NONE SEEN Normal NONE SEEN The [facility] Comment on above: Performed By: #### U DINA, LIPID, TSH, BNP, CMP, T7 #### [facility] [address] [place] [address] Dr. Suzie Brooks Epithelial cells LM Ql (Urine sed) RARE Normal NONE SEEN /RARE [facility] Comment on above: Performed By: #### U DINA, LIPID, TSH, BNP, CMP, T7 #### [facility] [address] [place] [address] Dr. Suzie Brooks MUCOUS NONE SEEN Normal NONE SEEN The [facility] Comment on above: Performed By: #### U DINA, LIPID, TSH, BNP, CMP, T7 #### [facility] [address] [place] [address] Dr. Suzie Brooks RBC 50-75 Abnormal 0-2 [facility] Comment on above: Performed By: #### U DINA, LIPID, TSH, BNP, CMP, T7 #### [facility] [address], [place] [address] Dr. Suzie Brooks WBC 20-50 Abnormal NONE SEEN The [facility] Comment on above: Performed By: #### U DINA, LIPID, TSH, BNP, CMP, T7 #### [facility] [address], [place] [address] Dr. Suzie Brooks XR KUB 1 VIEWon 11-06-2021 XR KUB 1 VIEW EXAM: XR KUB 1 VIEW HISTORY: Kidney stone COMPARISON: KUB 11/06/2021, CT abdomen/pelvis 11/05/2021 TECHNIQUE: Frontal radiograph of the abdomen. FINDINGS: Interval placement of a right ureteral stent coiled at the expected right renal pelvis. The previously demonstrated right nephroliths are not discretely identified on this exam. No pathologic calcifications. No acute osseous findings. IMPRESSION: Interval placement of a right ureteral stent. Previously demonstrated right nephroliths not well visualized on this exam. Electronically authenticated by: BEHZAD SANTOS Date: 2021-11-06 21:58 Normal [facility] XR KUB 1 VIEW EXAMINATION: XR KUB 1 VIEW HISTORY: Kidney stone COMPARISON: 11/01/2021, 11/05/2021 FINDINGS: KIDNEY/URETER - RIGHT: Right nephrolithiasis. Calcification projects between the right L3 and L4 transverse process proximal ureterolith favored. KIDNEY/URETER - LEFT: No visible renal or ureteral calcifications. PELVIS: No visible ureteral calcifications. Any visible calcifications favor phleboliths. BOWEL: No abnormal dilation or deviation. BONES: No acute abnormality. OTHER: Negative. No abnormal gaseous collections. IMPRESSION: Right nephrolithiasis and ureterolithiasis Electronically authenticated by: RAFAEL GRAVES Date: 2021-11-06 08:06 Normal [facility] CBC AUTO DIFFon 11-05-2021 BASO # 0.1 103/ul Normal 0.0-0.1 [facility] Comment on above: Performed By: #### U DINA, LIPID, TSH, BNP, CMP, T7 #### [facility] [address] [id number] Suzie Brooks Basophils/100 WBC (Bld) 0.6 % Normal 0.2-2.0 [facility] Comment on above: Performed By: #### U DINA, LIPID, TSH, BNP, CMP, T7 #### [facility] [address] [place] [address] Dr. Suzie Brooks EO # 0.3 103/ul Normal 0.0-0.7 [facility] Comment on above: Performed By: #### U DINA, LIPID, TSH, BNP, CMP, T7 #### [facility] [address] [place] [address] Dr. Suzie Brooks Eosinophils/100 WBC (Bld) 2.2 % Normal 0.9-7.0 [facility] Comment on above: Performed By: #### U DINA, LIPID, TSH, BNP, CMP, T7 #### [facility] [address] [place] [address] Dr. Suzie Brooks Erythrocyte distribution width (RBC) [Ratio] 13.7 % Normal 11.0-15.0 [facility] Comment on above: Performed By: #### U DINA, LIPID, TSH, BNP, CMP, T7 #### [facility] [address] [place] [address] Dr. Suzie Brooks Hematocrit (Bld) [Volume fraction] 49.0 % Normal 42.0-54.0 [facility] Comment on above: Performed By: #### U DINA, LIPID, TSH, BNP, CMP, T7 #### [facility] [address] [place] [address] Dr. Suzie Brooks Hemoglobin (Bld) [Mass/Vol] 15.9 g/dL Normal 14.0-18.0 [facility] Comment on above: Performed By: #### U DINA, LIPID, TSH, BNP, CMP, T7 #### [facility] [address] [place] [address] Dr. Suzie Brooks IG # 0.07 10e3/ul Critically high 0.00-0.03 [facility] Comment on above: Performed By: #### U DINA, LIPID, TSH, BNP, CMP, T7 #### [facility] [address] [place] [address] Dr. Suzie Brooks IG % 0.5 % Normal 0.0-0.5 [facility] Comment on above: Performed By: #### U DINA, LIPID, TSH, BNP, CMP, T7 #### [facility] [address] [place] [address] Dr. Suzie Brooks LYMPH # 3.1 103/ul Normal 1.2-3.8 [facility] Comment on above: Performed By: #### U DINA, LIPID, TSH, BNP, CMP, T7 #### [facility] [address] [place] [address] Dr. Suzie Brooks Lymphocytes/100 WBC (Bld) 23.8 % Normal 20.5-60.0 [facility] Comment on above: Performed By: #### U DINA, LIPID, TSH, BNP, CMP, T7 #### [facility] [address] [place] [address] Dr. Suzie Brooks MANUAL DIFF REQ NO Normal [facility] Comment on above: Performed By: #### U DINA, LIPID, TSH, BNP, CMP, T7 #### [facility] [address] [place] [address] Dr. Suzie Brooks MCH (RBC) [Entitic mass] 28.8 pg Normal 25.9-34.0 [facility] Comment on above: Performed By: #### U DINA, LIPID, TSH, BNP, CMP, T7 #### [facility] [address] [place] [address] Dr. Suzie Brooks MCHC (RBC) [Mass/Vol] 32.4 g/dL Normal 29.9-35.2 [facility] Comment on above: Performed By: #### U DINA, LIPID, TSH, BNP, CMP, T7 #### [facility] [address] [place] [address] Dr. Suzie Brooks MCV (RBC) [Entitic vol] 88.8 fL Normal 80.0-94.0 [facility] Comment on above: Performed By: #### U DINA, LIPID, TSH, BNP, CMP, T7 #### [facility] [address] [place] [address] Dr. Suzie Brooks MONO # 0.9 103/ul Critically high 0.3-0.8 [facility] Comment on above: Performed By: #### U DINA, LIPID, TSH, BNP, CMP, T7 #### [facility] [address] [address] [address] Suzie Brooks Monocytes/100 WBC (Bld) 6.8 % Normal 1.7-12.0 [facility] Comment on above: Performed By: #### U DINA, LIPID, TSH, BNP, CMP, T7 #### [facility] [address] [address] [address] Suzie Brooks NEUT # 8.7 103/ul Critically high 1.4-6.5 [facility] Comment on above: Performed By: #### U DINA, LIPID, TSH, BNP, CMP, T7 #### [facility] [address] [place] [address] Dr. Suzie Brooks Neutrophils/100 WBC (Bld) 66.1 % Normal 43.0-75.0 [facility] Comment on above: Performed By: #### U DINA, LIPID, TSH, BNP, CMP, T7 #### [facility] [address] [address] [address] Suzie Brooks Platelet mean volume (Bld) [Entitic vol] 9.4 fL Critically low 9.5-13.5 [facility] Comment on above: Performed By: #### U DINA, LIPID, TSH, BNP, CMP, T7 #### [facility] [address] [place] [address] Dr. Suzie Brooks PLT 278 103/ul Normal 150-450 [facility] Comment on above: Performed By: #### U DINA, LIPID, TSH, BNP, CMP, T7 #### [facility] [address] [place] [address] Dr. Suzie Brooks RBC 5.52 106/ul Normal 4.70-6.10 [facility] Comment on above: Performed By: #### U DINA, LIPID, TSH, BNP, CMP, T7 #### [facility] [address] [place] [address] Dr. Suzie Brooks WBC 13.1 103/ul Critically high 4.0-11.0 [facility] Comment on above: Performed By: #### U DINA, LIPID, TSH, BNP, CMP, T7 #### [facility] [address], [place] [address] ABD/PELVIS WO CONon 11-05 CT ABD/PELVIS WO CON EXAMINATION: CT ABD/PELVIS WO CON, 11/05/2021 10:33 AM EDT HISTORY: CALCULUS OF KIDNEY , right flank pain COMPARISON: None. TECHNIQUE: CT scan of the abdomen and pelvis was performed without IV contrast. CT dose reduction technique was used, including Automated Exposure Control. FINDINGS: LUNG BASES: Diffuse hypoattenuation the liver suggesting steatosis LIVER: No enlargement, atrophy, abnormal density, or significant focal lesion. BILIARY: No dilatation or calcification. PANCREAS: No lesion, fluid collection, ductal dilatation, or atrophy. SPLEEN: No enlargement or focal lesion. ADRENALS: No mass or enlargement. KIDNEYS: Mild asymmetric right hydroureteronephrosis extending down to a series of calcifications in the proximal ureter measuring up to 5 mm in diameter over the course of 1.9 cm best seen on axial image 87 and 88 and coronal image 48. Additional nonobstructing right nephrolith. No obstructing left nephrolithiasis. Left renal cortical hypodensities a cyst is suspected BOWEL/MESENTERY: Moderate colonic diverticulosis without evidence of acute diverticulitis. Nonobstructive bowel gas pattern AORTA/VASCULAR: No aortic aneurysm. Mild atherosclerosis RETROPERITONEUM: No mass or adenopathy. LYMPH NODES: No adenopathy. URINARY BLADDER: 3 mm calcification lying dependently within the urinary bladder, axial image 132 consistent with a passed stone PELVIC ORGANS: Normal sized the prostate gland with central calcification ABDOMINAL WALL: No mass or hernia. BONES: No bony lesion or fracture. OTHER: Negative. IMPRESSION: Multiple proximal right ureteroliths with associated mild to moderate hydroureteronephrosis Electronically authenticated by: RAFAEL GRAVES Date: 2021-11-05 11:46 Normal [facility] CULTURE URINEon 11-05-2021 CULTURE URINE Culture Observations : No growth Normal [facility] Comment on above: Performed By: #### M AG24 #### [facility] [address], [place] [address] Dr. Suzie Brooks ER URINE PROFILEon 2 Bilirubin Ql (U) Negative Normal NEGATIVE [facility] Comment on above: Performed By: #### C VDTBH #### [facility] [address] [place] [address] Dr. Suzie Brooks Clarity (U) CLEAR Normal CLEAR [facility] Comment on above: Performed By: #### C VDTBH #### [facility] [address] [place] [address] Dr. Suzie Brooks Color (U) DK. YELLOW Normal YELLOW [facility] Comment on above: Performed By: #### C VDTBH #### [facility] [address] [place] [address] Dr. Suzie Brooks ERUAHD A micrscopic examina tion will be performed if indicated. Normal [facility] Comment on above: Performed By: #### C VDTBH #### [facility] [address] [place] [address] Dr. Suzie Brooks Glucose Ql (U) Negative Normal NEGATIVE [facility] [place] [facility] Comment on above: Performed By: #### C VDTBH #### [facility] [address] [place] [address] Dr. Suzie Brooks Hemoglobin Ql (U) LARGE Abnormal NEGATIVE [facility] Comment on above: Performed By: #### C VDTBH #### [facility] [address] [place] [address] Dr. Suzie Brooks Ketones Ql (U) Negative Normal NEGATIVE [facility] Comment on above: Performed By: #### C VDTBH #### [facility] [address] [place] [address] Dr. Suzie Brooks LEUKOCYTES Negative Normal NEGATIVE [facility] Comment on above: Performed By: #### C VDTBH #### [facility] [address] [place] [address] Dr. Suzie Brooks Nitrite Ql (U) Negative Normal NEGATIVE [facility] [place] [facility] Comment on above: Performed By: #### C VDTBH #### [facility] [address] [place] [address] Dr. Suzie Brooks pH (U) 5.0 [pH] Normal 5-9 [facility] Comment on above: Performed By: #### C VDTBH #### [facility] [address] [place] [address] Dr. Suzie Brooks Protein (U) [Mass/Vol] 100 mg/dL Abnormal NEGATIVE/ TRACE [facility] Comment on above: Performed By: #### C VDTBH #### [facility] [address] [place] [address] Dr. Suzie Brooks SPEC GRAVITY >=1.030 Abnormal 1.005-<=1.02 5 [facility] Comment on above: Performed By: #### C VDTBH #### [facility] [address] [place] [address] Dr. Suzie Brooks UR MICRO IND INDICATED Normal [facility] Comment on above: Performed By: #### C VDTBH #### [facility] [address] [place] [address] Dr. Suzie Brooks Urobilinogen Qn (U) 0.2 {Behzad'U}/dL Normal 0.2 - 1. 0 [facility] Comment on above: Performed By: #### C VDTBH #### [facility] [address] [place] [address] Dr. Suzie Brooks PROF 14(COMP METB)on 022 Albumin [Mass/Vol] 3.9 g/dL Normal 3.4-5.0 [facility] Comment on above: Performed By: #### U DINA, LIPID, TSH, BNP, CMP, T7 #### [facility] [address] [place] [address] Dr. Suzie Brooks Albumin/Globulin [Mass ratio] 1.1 {ratio} Normal [facility] Comment on above: Performed By: #### U DINA, LIPID, TSH, BNP, CMP, T7 #### [facility] [address] [place] [address] Dr. Suzie Brooks ALP [Catalytic activity/Vol] 64 U/L Normal 46-116 [facility] Comment on above: Performed By: #### U DINA, LIPID, TSH, BNP, CMP, T7 #### [facility] [address] [address] [address] Suzie Brooks ALT [Catalytic activity/Vol] 57 U/L Normal 16-63 [facility] Comment on above: Performed By: #### U DINA, LIPID, TSH, BNP, CMP, T7 #### [facility] [address] [address] [address] Suzie Brooks Anion gap [Moles/Vol] 14.4 mmol/L Normal [facility] Comment on above: Performed By: #### U DINA, LIPID, TSH, BNP, CMP, T7 #### [facility] [address] [address] [address] Suzie Brooks AST [Catalytic activity/Vol] 51 U/L Critically high 15-37 [facility] Comment on above: Performed By: #### U DINA, LIPID, TSH, BNP, CMP, T7 #### [facility] [address] [address] [address] Suzie Brooks Bilirubin [Mass/Vol] 0.8 mg/dL Normal 0.2-1.3 [facility] Comment on above: Performed By: #### U DINA, LIPID, TSH, BNP, CMP, T7 #### [facility] [address] [address] [address] Suzie Brooks Calcium [Mass/Vol] 8.5 mg/dL Normal 8.5-10.1 [facility] Comment on above: Performed By: #### U DINA, LIPID, TSH, BNP, CMP, T7 #### [facility] [address] [address] [address] Suzie Brooks Chloride [Moles/Vol] 103 mmol/L Normal 98-107 [facility] Comment on above: Performed By: #### U DINA, LIPID, TSH, BNP, CMP, T7 #### [facility] [address] [address] [address] Suzie Brooks CO2 [Moles/Vol] 26.8 mmol/L Normal 22.0-30.0 [facility] Comment on above: Performed By: #### U DINA, LIPID, TSH, BNP, CMP, T7 #### [facility] [address] [address] [address] Suzie Brooks Creatinine [Mass/Vol] 0.98 mg/dL Normal 0.66-1.25 [facility] Comment on above: Performed By: #### U DINA, LIPID, TSH, BNP, CMP, T7 #### [facility] [address] [address] [address] Suzie Brooks EGFR-AF P[place] >60 Normal >=60 [facility] Comment on above: Performed By: #### U DINA, LIPID, TSH, BNP, CMP, T7 #### [facility] [address] [place] [address] Dr. Suzie Brooks EGFR-NON AF P[place] >60 Normal >=60 [facility] Comment on above: Performed By: #### U DINA, LIPID, TSH, BNP, CMP, T7 #### [facility] [address] [place] [address] Dr. Suzie Brooks Globulin (S) [Mass/Vol] 3.7 g/dL Normal [facility] Comment on above: Performed By: #### U DINA, LIPID, TSH, BNP, CMP, T7 #### [facility] [address] [place] [address] Dr. Suzie Brooks Glucose [Mass/Vol] 118 mg/dL Critically high 74-106 [facility] Comment on above: Performed By: #### U DINA, LIPID, TSH, BNP, CMP, T7 #### [facility] [address] [place] [address] Dr. Suzie Brooks Potassium [Moles/Vol] 4.2 mmol/L Normal 3.4-5.0 [facility] Comment on above: Performed By: #### U DINA, LIPID, TSH, BNP, CMP, T7 #### [facility] [address] [place] [address] Dr. Suzie Brooks Protein [Mass/Vol] 7.6 g/dL Normal 6.1-8.2 [facility] Comment on above: Performed By: #### U DINA, LIPID, TSH, BNP, CMP, T7 #### [facility] [address] [place] [address] Dr. Suzie Brooks Sodium [Moles/Vol] 140 mmol/L Normal 137-145 [facility] Comment on above: Performed By: #### U DINA, LIPID, TSH, BNP, CMP, T7 #### [facility] [address] [place] [address] Dr. Suzie Brooks Urea nitrogen [Mass/Vol] 14.0 mg/dL Normal 7.0-18.0 [facility] Comment on above: Performed By: #### U DINA, LIPID, TSH, BNP, CMP, T7 #### [facility] [address] [place] [address] Dr. Suzie Brooks Urea nitrogen/Creatinine [Mass ratio] 14.3 mg/mg Normal [facility] [place] Comment on above: Performed By: #### U DINA, LIPID, TSH, BNP, CMP, T7 #### [facility] [place] Laboratory [address] [place] [address] Dr. Suzie Brooks URINE MICROSCOPIC ONLYon BACTERIA MODERATE Abnormal NONE SEEN [facility] Comment on above: Performed By: #### C VDTBH #### [facility] [place] Laboratory [address] [place] [address] Dr. Suzie Brooks Bacteria identified Cx Nom (U) INDICATED Normal [facility] [place] Comment on above: Performed By: #### C VDTBH #### [facility] [place] Laboratory [address] [place] [address] Dr. Suzie Brooks CAST SEEN Abnormal NONE SEEN [facility] Comment on above: Performed By: #### C VDTBH #### [facility] [place] Laboratory [address] [place] [address] Dr. Suzie Brooks Crystals LM Nom (Urine sed) NONE SEEN Normal NONE SEEN [facility] [place] Comment on above: Performed By: #### C VDTBH #### [facility] [place] Laboratory [address] [place] [address] Dr. Suzie Brooks Epithelial cells LM Ql (Urine sed) RARE Normal NONE SEEN /RARE [facility] [place] Comment on above: Performed By: #### C VDTBH #### [facility] [place] Laboratory [address] [place] [address] Dr. Suzie Brooks HYALINE CAST RARE Normal [facility] [place] Comment on above: Performed By: #### C VDTBH #### [facility] [place] Laboratory [address] [address] [address] Suzie Brooks MUCOUS NONE SEEN Normal NONE SEEN [facility] [place] Comment on above: Performed By: #### C VDTBH #### [facility] [place] [facility] [address] [address] [address] Suzie Brooks RBC (U) [#/Vol] /uL Abnormal 0-2 [facility] Comment on above: Performed By: #### C VDTBH #### [facility] [place] Laboratory [address] [address] [address] Suzie Brooks WBC NONE SEEN Normal NONE SEEN [facility] [place] Comment on above: Performed By: #### C VDTBH #### [facility] [place] Laboratory [address] [place] [address] Dr. Suzie Brooks XR KUB 1 VIEWon 11-01-2021 XR KUB 1 VIEW EXAMINATION: XR KUB 1 VIEW HISTORY: Urolithiasis , right kidney stones COMPARISON: XR KUB 10/17/2021 FINDINGS: KIDNEY/URETER - RIGHT: Approximately 18 mm triangular shaped calcification projecting over mid body of kidney. KIDNEY/URETER - LEFT: No visible renal or ureteral calcifications. PELVIS: No convincing ureteral stones. Stable right pelvic calcifications favor phleboliths. BOWEL: No abnormal dilation or deviation. BONES: No acute abnormality. OTHER: Negative. No abnormal gaseous collections. IMPRESSION: 1. Stable right nephrolithiasis. Electronically authenticated by: BEHZAD CARRASQUILLO Date: 2021-11-01 12:07 Normal [facility] [place] CBC AUTO DIFFon 10-26-2021 BASO # 0.1 103/ul Normal 0.0-0.1 [facility] [place] Comment on above: Performed By: #### U DINA, LIPID, TSH, BNP, CMP, T7 #### [facility] [place] Laboratory [address] [address] [address] Suzie Brooks Basophils/100 WBC (Bld) 0.7 % Normal 0.2-2.0 [facility] [place] Comment on above: Performed By: #### U DINA, LIPID, TSH, BNP, CMP, T7 #### [facility] [place] Laboratory [address] [place] [address] Dr. Suzie Brooks EO # 0.2 103/ul Normal 0.0-0.7 [facility] [place] Comment on above: Performed By: #### U DINA, LIPID, TSH, BNP, CMP, T7 #### [facility] [place] Laboratory [address] [place] [address] Dr. Suzie Brooks Eosinophils/100 WBC (Bld) 1.5 % Normal 0.9-7.0 [facility] [place] Comment on above: Performed By: #### U DINA, LIPID, TSH, BNP, CMP, T7 #### [facility] [place] Laboratory [address] [place] [address] Dr. Suzie Brooks Erythrocyte distribution width (RBC) [Ratio] 13.9 % Normal 11.0-15.0 [facility] Comment on above: Performed By: #### U DINA, LIPID, TSH, BNP, CMP, T7 #### [facility] [place] [facility] [address] [place] [address] Dr. Suzie Brooks Hematocrit (Bld) [Volume fraction] 47.5 % Normal 42.0-54.0 [facility] Comment on above: Performed By: #### U DINA, LIPID, TSH, BNP, CMP, T7 #### [facility] [place] [facility] [address] [place] [address] Dr. Suzie Brooks Hemoglobin (Bld) [Mass/Vol] 15.5 g/dL Normal 14.0-18.0 [facility] Comment on above: Performed By: #### U DINA, LIPID, TSH, BNP, CMP, T7 #### [facility] [place] [facility] [address] [place] [address] Dr. Suzie Brooks IG # 0.06 10e3/ul Critically high 0.00-0.03 [facility] Comment on above: Performed By: #### U DINA, LIPID, TSH, BNP, CMP, T7 #### [facility] [place] [facility] [address] [place] [address] Dr. Suzie Brooks IG % 0.5 % Normal 0.0-0.5 [facility] Comment on above: Performed By: #### U DINA, LIPID, TSH, BNP, CMP, T7 #### [facility] [place] [facility] [address] [address] [address] Suzie Brooks LYMPH # 2.6 103/ul Normal 1.2-3.8 [facility] [place] Comment on above: Performed By: #### U DINA, LIPID, TSH, BNP, CMP, T7 #### [facility] [place] Laboratory [address] [address] [address] Suzie Brooks Lymphocytes/100 WBC (Bld) 23.1 % Normal 20.5-60.0 [facility] [place] Comment on above: Performed By: #### U DINA, LIPID, TSH, BNP, CMP, T7 #### [facility] [place] [facility] [address] [address] [address] Suzie Brooks MANUAL DIFF REQ NO Normal [facility] Comment on above: Performed By: #### U DINA, LIPID, TSH, BNP, CMP, T7 #### [facility] [place] [facility] [address] [place] [address] Dr. Suzie Brooks MCH (RBC) [Entitic mass] 28.9 pg Normal 25.9-34.0 [facility] Comment on above: Performed By: #### U DINA, LIPID, TSH, BNP, CMP, T7 #### [facility] [place] Laboratory [address] [place] [address] Dr. Suzie Brooks MCHC (RBC) [Mass/Vol] 32.6 g/dL Normal 29.9-35.2 [facility] [place] Comment on above: Performed By: #### U DINA, LIPID, TSH, BNP, CMP, T7 #### [facility] [place] [facility] [address] [address] [address] Suzie Brooks MCV (RBC) [Entitic vol] 88.5 fL Normal 80.0-94.0 [facility] [place] Comment on above: Performed By: #### U DINA, LIPID, TSH, BNP, CMP, T7 #### [facility] [place] Laboratory [address] [place] [address] Dr. Suzie Brooks MONO # 0.9 103/ul Critically high 0.3-0.8 [facility] Comment on above: Performed By: #### U DINA, LIPID, TSH, BNP, CMP, T7 #### [facility] [place] [facility] [address] [address] [address] Suzie Brooks Monocytes/100 WBC (Bld) 7.9 % Normal 1.7-12.0 [facility] [place] Comment on above: Performed By: #### U DINA, LIPID, TSH, BNP, CMP, T7 #### [facility] [place] Laboratory [address] [address] [address] Suzie Brooks NEUT # 7.4 103/ul Critically high 1.4-6.5 [facility] Comment on above: Performed By: #### U DINA, LIPID, TSH, BNP, CMP, T7 #### [facility] [place] [facility] [address] [address] [address] Suzie Brooks Neutrophils/100 WBC (Bld) 66.3 % Normal 43.0-75.0 [facility] [place] Comment on above: Performed By: #### U DINA, LIPID, TSH, BNP, CMP, T7 #### [facility] [place] Laboratory [address] [place] [address] Dr. Suzie Brooks Platelet mean volume (Bld) [Entitic vol] 9.6 fL Normal 9.5-13.5 [facility] [place] Comment on above: Performed By: #### U DINA, LIPID, TSH, BNP, CMP, T7 #### [facility] [place] [facility] [address] [place] [address] Dr. Suzie Brooks PLT 252 103/ul Normal 150-450 [facility] [place] Comment on above: Performed By: #### U DINA, LIPID, TSH, BNP, CMP, T7 #### [facility] [place] [facility] [address] [address] [address] Suzie Brooks RBC 5.37 106/ul Normal 4.70-6.10 [facility] [place] Comment on above: Performed By: #### U DINA, LIPID, TSH, BNP, CMP, T7 #### [facility] [place] [facility] [address] [place] [address] Dr. Suzie Brooks WBC 11.2 103/ul Critically high 4.0-11.0 [facility] Comment on above: Performed By: #### U DINA, LIPID, TSH, BNP, CMP, T7 #### [facility] [place] [facility] [address] [place] [address] Dr. Suzie Brooks [facility]on 10-09 SARS-CoV-2 (COVID-19) RNA SUKHJINDER+probe Ql (Unsp spec) Not detected Normal NOT DETECTED [facility] [place] Comment on above: Result Comment: This test is not yet approved or cleared by the [place] FDA. When there are no FDA-approved or cleared tests available, and other criteria are met, FDA can make tests available under an emergency access mechanism called an Emergency Use Authorization (EUA). The EUA for this test is supported by the [place] of Health and Human Service's (HHS's) declaration that circumstances exist to justify the emergency use of in vitro diagnostics for the detection and/or diagnosis of the virus that causes COVID-19. This EUA will remain in effect (meaning this test can be used) for the duration of the COVID-19 declaration justifying emergency of IVDs, unless it is terminated or revoked by FDA (after which the test may no longer be used). When diagnostic testing is negative, the possibility of a false negative should be considered in the context of a patient's recent exposures and the presence of clinical signs and symptoms consistent with SARS-CoV-2. Performed By: #### U DINA, LIPID, TSH, BNP, CMP, T7 #### [facility] [place] [facility] [address] [place] [address] Dr. Suzie Brooks PROF CHEM 8 (BAS METB)on Anion gap [Moles/Vol] 7.7 mmol/L Normal [facility] Comment on above: Performed By: #### C VDTBH #### [facility] [place] [facility] [address] [place] [address] Dr. Suzie Brooks Calcium [Mass/Vol] 8.6 mg/dL Normal 8.5-10.1 [facility] Comment on above: Performed By: #### C VDTBH #### [facility] [place] [facility] [address] [place] [address] Dr. Suzie Brooks Chloride [Moles/Vol] 104 mmol/L Normal 98-107 [facility] [place] Comment on above: Performed By: #### C VDTBH #### [facility] [place] [facility] [address] [address] [address] Suzie Brooks CO2 [Moles/Vol] 31.8 mmol/L Critically high 22.0-30.0 [facility] [place] Comment on above: Performed By: #### C VDTBH #### [facility] [place] [facility] [address] [address] [address] Suzie Brooks Creatinine [Mass/Vol] 0.99 mg/dL Normal 0.66-1.25 [facility] [place] Comment on above: Performed By: #### C VDTBH #### [facility] [place] [facility] [address] [address] [address] Suzie Brooks EGFR-AF PAPUA NEW GUINEAN >60 Normal >=60 [facility] Comment on above: Performed By: #### C VDTBH #### [facility] [place] Laboratory [address] [place] [address] Dr. Suzie Brooks EGFR-NON AF PAPUA [place]AN >60 Normal >=60 [facility] Comment on above: Performed By: #### C VDTBH #### [facility] [place] [facility] [address] [address] [address] Suzie Brooks Glucose [Mass/Vol] 94 mg/dL Normal 74-106 [facility] Comment on above: Performed By: #### C VDTBH #### [facility] [place] [facility] [address] [place] [address] Dr. Suzie Brooks Potassium [Moles/Vol] 4.5 mmol/L Normal 3.4-5.0 [facility] [place] Comment on above: Performed By: #### C VDTBH #### [facility] [place] [facility] [address] [place] [address] Dr. Suzie Brooks Sodium [Moles/Vol] 139 mmol/L Normal 137-145 [facility] Comment on above: Performed By: #### C VDTBH #### [facility] [place] [facility] [address] [address] [address] Suzie Brooks Urea nitrogen [Mass/Vol] 12.0 mg/dL Normal 7.0-18.0 [facility] [place] Comment on above: Performed By: #### C VDTBH #### [facility] [place] Laboratory [address] [place] [address] Dr. Suzie Brooks Urea nitrogen/Creatinine [Mass ratio] 12.1 mg/mg Normal [facility] [place] Comment on above: Performed By: #### C VDTBH #### [facility] [place] Laboratory [address] [place] [address] Dr. Suzie Brooks PROTIMEon 10-26-2021 INR Coag (PPP) [Relative time] 0.99 {INR} Normal [facility] [place] Comment on above: Performed By: #### C VDTBH #### [facility] [place] Laboratory [address] [place] [address] Dr. Suzie Brooks INR GUIDELINES SEE BELOW Normal [facility] Comment on above: Result Comment: TOMMY RED INR: 2.0 - 3.0 CONDITIONS NOT LISTED BELOW 2.5 - 3.5 FOR PROSTHETIC HEART VALVE REPLACEMENT 2.5 - 3.5 RECURRENT THROMBOSIS Performed By: #### C VDTBH #### [facility] [place] Laboratory [address] [place] [address] Dr. Suzie Brooks PT Coag (PPP) [Time] 10.7 s Normal 9.0-11.6 [facility] Comment on above: Performed By: #### C VDTBH #### [facility] [place] Laboratory [address] [place] [address] Dr. Suzie Brooks PTTon 10-26-2021 aPTT Coag (Bld) [Time] 26.4 s Normal 22.3-36.2 [facility] Comment on above: Performed By: #### C VDTBH #### [facility] [place] Laboratory [address] [place] [address] Dr. Suzie Brooks XR KUB 1 VIEWon 10-17-2021 XR KUB 1 VIEW EXAMINATION: XR KUB 1 VIEW HISTORY: Kidney stone COMPARISON: 05/01/2021 FINDINGS: KIDNEY/URETER - RIGHT: Coarse calcification projects over the upper pole of the right kidney KIDNEY/URETER - LEFT: No visible renal or ureteral calcifications. PELVIS: No visible ureteral calcifications. Any visible calcifications favor phleboliths. BOWEL: No abnormal dilation or deviation. BONES: No acute abnormality. Degenerative changes OTHER: Negative. No abnormal gaseous collections. IMPRESSION: Suspected stable right nephrolith Electronically authenticated by: RAFAEL GRAVES Date: 2021-10-17 13:26 Normal [facility] Vital Signs Date Time Vital Sign Value Performing Clinician Dario mcdonough 04-11-2023 11:55-0400 Blood Pressure Location Mikikimberly ZENG [facility] 04-11-2023 11:55-0400 Diastolic blood pressure 76 mm[Hg] Miki ZENG [facility] 04-11-2023 11:55-0400 Heart rate 80 /min Miki ZENG [facility] 04-11-2023 11:55-0400 Respiratory rate 16 /min Miki ZENG [facility] 04-11-2023 11:55-0400 Systolic blood pressure 134 mm[Hg] Miki ZENG [facility] 02-25-2022 14:20-0400 Blood Pressure Location Miki ZENG [facility] 02-25-2022 14:20-0400 Diastolic blood pressure 100 mm[Hg] Miki ZENG [facility] 02-25-2022 14:20-0400 Heart rate 86 /min Mkii ZENG [facility] 02-25-2022 14:20-0400 Respiratory rate 16 /min Miki ZENG [facility] 02-25-2022 14:20-0400 Systolic blood pressure 155 mm[Hg] Miki ZENG [facility] Encounters Encounter Date Encounter Type Care Provider Facility Start: 04-16-2024 ambulatory Miki Sims ty:[facility] Start: 04-11-2023 End: 04-12-2023 ambulatory Miki ZENG Facility:[facility] Start: 04-11-2023 End: 04-11-2023 Patient encounter procedure Miki ZENG [facility] Start: 08-19-2022 End: 08-20-2022 ambulatory Miki ZENG Facility:[facility] Start: 08-14-[address] MARIELLE LERMA Facility :[facility] Start: 08-13-[address] MARIELLE LERMA Facility :[facility] Start: 07-26-2022 End: 07-27-[address] MARIELLE LERMA Facility:[facility] Start: 07-18-2022 End: 07-19-[address] MIKI ZENG Facility:[facility] Start: 05-15-2022 End: 05-16-[address] MARIELLE LERMA Facility:[facility] Start: 02-25-2022 End: 02-25-2022 Patient encounter procedure Miki ZENG [facility] Start: 02-18-2022 End: 02-18-[address] MARIELLE LERMA Facility:[facility] Start: 02-16-2022 End: 02-17-[address] MARIELLE LERMA Facility:[facility] Start: 02-01-2022 End: 02-01-[address] MIKI ZENG Facility:[facility] Start: 01-30-2022 End: 01-31-[address] MIKI ZENG Facility:[facility] Start: 12-18-2021 End: 12-19-[address] MIKI ZENG Facility:[facility] Start: 11-21-2021 End: 11-22-[address] MARIELLE LERMA Facility:[facility] Start: 11-13-2021 End: 11-13-2021 Patient encounter procedure MD Marielle Lerma Work Phone: [facility] Start: 11-12-2021 End: 11-13-[address] MIKI ZENG Facility:[facility] Start: 11-06-2021 End: 11-07-[address] MARIELLE LERMA Facility:[facility] Start: 11-05-2021 End: 11-05-[address] MARIELLE LERMA Facility:[facility] Start: 11-01-2021 End: 11-01-[address] MIKI ZENG Facility:[facility] Start: 10-31-2021 Encounter for preprocedural cardiovascular examination DR MIKI ZENG [facility] Start: 10-30-[address] ZENG [facility] ity:[facility] Start: 10-26-2021 End: 10-27-[address] MIKI ZENG Facility:[facility] Start: 10-26-2021 End: 10-27-2021 Encounter for preprocedural cardiovascular examination DR MIKI ZENG Facility:[facility] Start: 10-17-2021 End: 10-18-[address] MIKI ZENG Facility:[facility] Procedures Date Procedure Procedure Detail Performing Clinician Start: 05-15-[address] JHONATAN ZENG Comment on above: Performed By: #### U DINA, LIPID, TSH, BNP, CMP, T7 #### [facility] [place] [facility] [address] [place] [address] Dr. Suzie Brooks Start: 11-21-2021 Cystoscopy Miki VINCENT Start: 11-06-2021 Cystoscopy Miki VINCENT Start: 11-08-2013 Colonoscopy Miki VINCENT Comment on above: normal Arthroplasty of knee Miki ZENG Comment on above: right Arthroscopic knee operation Miki ZENG Arthroscopic knee operation Miki ZENG Basal cell carcinoma (morphologic abnormality) Miki ZENG Lithotripsy Miki ZENG Reconstruction of nose Dean ZENG Repair of musculoten dinous cuff of shoulder Miki ZENG Repair of umbilical hernia P [place] THOR Wide excision Miki ZENG Comment on above: basal cell CA- LLE Immunizations Immunization Date Immunization Notes Care Provider Fa cili 05-31-2022 SARS-CoV-2 (COVID-19 ) [id number] Miki ZENG [facility] Comment on above: Result Comment: 2022: [id number] 12-22-2021 SARS-CoV-2 (COVID-19 ) mRNA-1273 vaccine Miki ZENG [facility] 06-05-2021 SARS-CoV-2 (COVID-19 ) mRNA-1273 vaccine Miki ZENG [facility] 05-29-2021 influenza virus vaccine, unspecified formulation Miki ZENG [facility] 05-15-2021 influenza virus vaccine, unspecified formulation Miki ZENG [facility] 11-09-2020 SARS-CoV-2 (COVID-19 ) mRNA-1273 vaccine Miki ZENG [facility] 11-01-2020 SARS-CoV-2 (COVID-19 ) mRNA-1273 vaccine Miki ZENG [facility] 10-09-2020 SARS-CoV-2 (COVID-19 ) mRNA-1273 vaccine Miki ZENG [facility] 10-05-2020 SARS-CoV-2 (COVID-19 ) [id number] vaccine Miki [email or web address] [facility] 05-17-2020 influenza virus vaccine, unspecified formulation Miki [email or web address] [facility] 06-24-2019 tetanus toxoid, redu roberto carlos diphtheria toxoid, and acellular pertussis vaccine, adsorbed [employer] [facility] 05-25-2019 influenza virus vaccine, unspecified formulation Miki [email or web address] [facility] 05-22-2017 influenza virus vaccine, unspecified formulation Miki [email or web address] [facility] 05-22-2017 pneumococcal conjuga te vaccine, 13 valent [employer] [facility] 05-30-2016 influenza, unspecifi ed formulation Miki [email or web address] [facility] 11-01-2013 zoster vaccine, live Miki ZENG [facility] 12-18-2005 hepatitis A vaccine, adult dosage [employer] [facility] 10-18-2005 hepatitis B vaccine, pediatric or pediatric/adolescent dosage [employer] [facility] 10-18-2005 tetanus and diphther ia toxoids, adsorbed, preservative free, for adult use (2 Lf of tetanus toxoid and 2 Lf of diphtheria toxoid) [employer] [facility] 07-26-2005 hepatitis B vaccine, pediatric or pediatric/adolescent dosage Miki ZENG [facility] 06-20-2005 hepatitis A vaccine, adult dosage Miki ZENG [facility] 06-20-2005 hepatitis B vaccine, pediatric or pediatric/adolescent dosage Miki ZENG [facility] Payers Date Payer Category Payer Medicare [id number] 1957 Private Health Insurance [id number] 1950 Unknown [id number] 2.16.84 0.1.520640.3.579.2.593 1952 Unknown [id number] 2.16.84 0.1.702509.3.579.2.593 1952 Unknown [id number] 2.16.84 0.1.743921.3.579.2.593 1952 Unknown [id number] 2.16.84 0.1.383534.3.579.2.593 1952 Unknown [id number] 2.16.84 0.1.886087.3.579.2.593 1952 Unknown [id number] 2.16.84 0.1.069638.3.579.2.593 1952 Unknown [id number] 2.16.84 0.1.965602.3.579.2.593 1952 Unknown [id number] 2.16.84 0.1.457478.3.579.2.593 1952 Unknown [id number] 2.16.84 0.1.452017.3.579.2.593 1952 Unknown [id number] 2.16.84 0.1.266221.3.579.2.593 1952 Unknown [id number] 2.16.84 0.1.081561.3.579.2.593 1952 Unknown [id number] 2.16.84 0.1.454696.3.579.2.593 1952 Unknown [id number] 2.16.84 0.1.629083.3.579.2.593 1952 Unknown [id number] 2.16.84 0.1.462326.3.579.2.593 1952 Unknown [id number] 2.16.84 0.1.850382.3.579.2.593 1952 Unknown [id number] 2.16.84 0.1.742560.3.579.2.593 1952 Unknown [id number] 2.16.84 0.1.335175.3.579.2.593 1952 Unknown [id number] 2.16.84 0.1.235779.3.579.2.593 1952 Unknown [id number] 2.16.8 40.1.941908.3.579.2.727 1952 Unknown [id number] 2.16.8 40.1.069405.3.579.2.727 1952 Unknown [id number] 2.16.8 40.1.896752.3.579.2.727 Self-pay Self Pay [id number] Social History Date Type Detail Facility Start: 10-19-2019 End: 04-11-2023 Tobacco smoking status NHIS Ex-smoker (finding) [facility] Start: 1950 Sex Assigned At Male F [facility] Tobacco smoking status Never [facility] Sex Assigned At Male [facility] Functional Status Date Assessment Result Facility 04-11-2023 Functional Status N/A [facility] 02-25-2022 Functional Status N/A [facility] Hospital Discharge instructions 04-11-2023 Note Date & Type Note Facility 04-11-2023 Hospital Discharg e instructions Patient Education 04/11/2023 12:39:12 Dietary Guidelines to Help Prevent Kidney Stones Dietary Guidelines to Help Prevent Kidney Stones Kidney stones are deposits of minerals and salts that form inside your kidneys. Your risk of developing kidney stones may be greater depending on your diet, your lifestyle, the medicines you take, and whether you have certain medical conditions. Most people can lower their chances of developing kidney stones by following the instructions below. Your dietitian may give you more specific instructions depending on your overall health and the type of kidney stones you tend to develop. What are tips for following this plan? Reading food labels Choose foods with no salt added or low-salt labels. Limit your salt (sodium) intake to less than 1,500 mg a day. Choose foods with calcium for each meal and snack. Try to eat about 300 mg of calcium at each meal. Foods that contain 200 500 mg of calcium a serving include: ?8 oz (237 mL) of milk, zkubmia-tuacttlxnlkd-frkgc milk, and calcium-fortifiedfruit juice. Calcium-fortified means that calcium has been added to these drinks. ?8 oz (237 mL) of kefir, yogurt, and soy yogurt. ?4 oz (114 g) of tofu. ?1 oz (28 g) of cheese. ?1 cup (150 g) of dried figs. ?1 cup (91 g) of cooked broccoli. ?One 3 oz (85 g) can of sardines or mackerel. Most people need 1,000 1,500 mg of calcium a day. Talk to your dietitian about how much calcium is recommended for you. Shopping Buy plenty of fresh fruits and vegetables. Most people do not need to avoid fruits and vegetables, even if these foods contain nutrients that may contribute to kidney stones. When shopping for convenience foods, choose: ?Whole pieces of fruit. ?Pre-made salads with dressing on the side. ?Low-fat fruit and yogurt smoothies. Avoid buying frozen meals or prepared deli foods. These can be high in sodium. Look for foods with live cultures, such as yogurt and kefir. Choose high-fiber grains, such as whole-wheat breads, oat bran, and wheat cereals. Cooking Do not add salt to food when cooking. Place a salt shaker on the table and allow each person to add his or her own salt to taste. Use vegetable protein, such as beans, textured vegetable protein (TVP), or tofu, instead of meat in pasta, casseroles, and soups. Meal planning Eat less salt, if told by your dietitian. To do this: ?Avoid eating processed or pre-made food. ?Avoid eating fast food. Eat less animal protein, including cheese, meat, poultry, or fish, if told by your dietitian. To do this: ?Limit the number of times you have meat, poultry, fish, or cheese each week. Eat a diet free of meat at least 2 days a week. ?Eat only one serving each day of meat, poultry, fish, or seafood. ?When you prepare animal protein, cut pieces into small portion sizes. For most meat and fish, one serving is about the size of the palm of your hand. Eat at least five servings of fresh fruits and vegetables each day. To do this: ?Keep fruits and vegetables on hand for snacks. ?Eat one piece of fruit or a handful of berries with breakfast. ?Have a salad and fruit at lunch. ?Have two kinds of vegetables at dinner. Limit foods that are high in a substance called oxalate. These include: ?Spinach (cooked), rhubarb, beets, sweet potatoes, and [place] Island[place] chard. ?Peanuts. ?Potato chips, bruneian fries, and baked potatoes with skin on. ?Nuts and nut products. ?Chocolate. If you regularly take a diuretic medicine, make sure to eat at least 1 or 2 servings of fruits or vegetables that are high in potassium each day. These include: ?Avocado. ?Banana. ?[place], prune, carrot, or tomato juice. ?Baked potato. ?Cabbage. ?Beans and split peas. Lifestyle Drink enough fluid to keep your urine pale yellow. This is the most important thing you can do. Spread your fluid intake throughout the day. If you drink alcohol: ?Limit how much you use to: ?0 1 drink a day for women who are not . ?0 2 drinks a day for men. ?Be aware of how much alcohol is in your drink. In the [place] one drink equals one 12 oz bottle of beer (355 mL), one 5 oz glass of wine (148 mL), or one 1 oz glass of hard liquor (44 mL). Lose weight if told by your health care provider. Work with your dietitian to find an eating plan and weight loss strategies that work best for you. General information Talk to your health care provider and dietitian about taking daily supplements. You may be told the following depending on your health and the cause of your kidney stones: ?Not to take supplements with vitamin C. ?To take a calcium supplement. ?To take a daily probiotic supplement. ?To take other supplements such as magnesium, fish oil, or vitamin B6. Take porm-kfl-nusktvu and prescription medicines only as told by your health care provider. These include supplements. What foods should I limit? Limit your intake of the following foods, or eat them as told by your dietitian. Vegetables Spinach. Rhubarb. Beets. Canned vegetables. Pickles. Olives. Baked potatoes with skin. Grains Wheat bran. Baked goods. Salted crackers. Cereals high in sugar. Meats and other proteins Nuts. Nut butters. Large portions of meat, poultry, or fish. Salted, precooked, or cured meats, such as sausages, meat loaves, and hot dogs. Dairy Cheese. Beverages Regular soft drinks. Regular vegetable juice. Seasonings and condiments Seasoning blends with salt. Salad dressings. Soy sauce. Ketchup. Barbecue sauce. Other foods Canned soups. Canned pasta sauce. Casseroles. Pizza. Lasagna. Frozen meals. Potato chips. [place]ymro fries. The items listed above may not be a complete list of foods and beverages you should limit. Contact a dietitian for more information. What foods should I avoid? Talk to your dietitian about specific foods you should avoid based on the type of kidney stones you have and your overall health. Fruits Grapefruit. The item listed above may not be a complete list of foods and beverages you should avoid. Contact a dietitian for more information. Summary Kidney stones are deposits of minerals and salts that form inside your kidneys. You can lower your risk of kidney stones by making changes to your diet. The most important thing you can do is drink enough fluid. Drink enough fluid to keep your urine pale yellow. Talk to your dietitian about how much calcium you should have each day, and eat less salt and animal protein as told by your dietitian. This information is not intended to replace advice given to you by your health care provider. Make sure you discuss any questions you have with your health care provider. Document Revised: 04/08/2022 Document Reviewed: 04/08/2022 [employer] Patient Education 2022 [employer] Follow Up Care 08/19/2022 10:39:03 With:THOR BATISTA, Miki Cedeño, URL Address: [facility] [address], [place] [address]- When:Within 1 Year(s) [facility] Hospital Discharge instructions 02-25-2022 Note Date & Type Note Facility 02-25-2022 Hospital Discharg e instructions Patient Education 02/25/2022 15:28:47 Calorie Counting for Weight Loss Calorie Counting for Weight Loss Calories are units of energy. Your body needs a certain amount of calories from food to keep you going throughout the day. When you eat more calories than your body needs, your body stores the extra calories as fat. When you eat fewer calories than your body needs, your body brian fat to get the energy it needs. Calorie counting means keeping track of how many calories you eat and drink each day. Calorie counting can be helpful if you need to lose weight. If you make sure to eat fewer calories than your body needs, you should lose weight. Ask your health care provider what a healthy weight is for you. For calorie counting to work, you will need to eat the right number of calories in a day in order to lose a healthy amount of weight per week. A dietitian can help you determine how many calories you need in a day and will give you suggestions on how to reach your calorie goal. A healthy amount of weight to lose per week is usually 1 2 lb (0.5 0.9 kg). This usually means that your daily calorie intake should be reduced by 500 750 calories. Eating 1,200 1,500 calories per day can help most women lose weight. Eating 1,500 1,800 calories per day can help most men lose weight. What is my plan? My goal is to have calories per day. If I have this many calories per day, I should lose around pounds per week. What do I need to know about calorie counting? In order to meet your daily calorie goal, you will need to: Find out how many calories are in each food you would like to eat. Try to do this before you eat. Decide how much of the food you plan to eat. Write down what you ate and how many calories it had. Doing this is called keeping a food log. To successfully lose weight, it is important to balance calorie counting with a healthy lifestyle that includes regular activity. Aim for 150 minutes of moderate exercise (such as walking) or 75 minutes of vigorous exercise (such as running) each week. Where do I find calorie information? The number of calories in a food can be found on a Nutrition Facts label. If a food does not have a Nutrition Facts label, try to look up the calories online or ask your dietitian for help. Remember that calories are listed per serving. If you choose to have more than one serving of a food, you will have to multiply the calories per serving by the amount of servings you plan to eat. For example, the label on a package of bread might say that a serving size is 1 slice and that there are 90 calories in a serving. If you eat 1 slice, you will have eaten 90 calories. If you eat 2 slices, you will have eaten 180 calories. How do I keep a food log? Immediately after each meal, record the following information in your food log: What you ate. Don't forget to include toppings, sauces, and other extras on the food. How much you ate. This can be measured in cups, ounces, or number of items. How many calories each food and drink had. The total number of calories in the meal. Keep your food log near you, such as in a small notebook in your pocket, or use a mobile keke or website. Some programs will calculate calories for you and show you how many calories you have left for the day to meet your goal. What are some calorie counting tips? Use your calories on foods and drinks that will fill you up and not leave you hungry: ?Some examples of foods that fill you up are nuts and nut butters, vegetables, lean proteins, and high-fiber foods like whole grains. High-fiber foods are foods with more than 5 g fiber per serving. ?Drinks such as sodas, specialty coffee drinks, alcohol, and juices have a lot of calories, yet do not fill you up. Eat nutritious foods and avoid empty calories. Empty calories are calories you get from foods or beverages that do not have many vitamins or protein, such as candy, sweets, and soda. It is better to have a nutritious high-calorie food (such as an avocado) than a food with few nutrients (such as a bag of chips). Know how many calories are in the foods you eat most often. This will help you calculate calorie counts faster. Pay attention to calories in drinks. Low-calorie drinks include water and unsweetened drinks. Pay attention to nutrition labels for low fat or fat free foods. These foods sometimes have the same amount of calories or more calories than the full fat versions. They also often have added sugar, starch, or salt, to make up for flavor that was removed with the fat. Find a way of tracking calories that works for you. Get creative. Try different apps or programs if writing down calories does not work for you. What are some portion control tips? Know how many calories are in a serving. This will help you know how many servings of a certain food you can have. Use a measuring cup to measure serving sizes. You could also try weighing out portions on a kitchen scale. With time, you will be able to estimate serving sizes for some foods. Take some time to put servings of different foods on your favorite plates, bowls, and cups so you know what a serving looks like. Try not to eat straight from a bag or box. Doing this can lead to overeating. Put the amount you would like to eat in a cup or on a plate to make sure you are eating the right portion. Use smaller plates, glasses, and bowls to prevent overeating. Try not to multitask (for example, watch TV or use your computer) while eating. If it is time to eat, sit down at a table and enjoy your food. This will help you to know when you are full. It will also help you to be aware of what you are eating and how much you are eating. What are tips for following this plan? Reading food labels Check the calorie count compared to the serving size. The serving size may be smaller than what you are used to eating. Check the source of the calories. Make sure the food you are eating is high in vitamins and protein and low in saturated and trans fats. Shopping Read nutrition labels while you shop. This will help you make healthy decisions before you decide to purchase your food. Make a grocery list and stick to it. Cooking Try to cook your favorite foods in a healthier way. For example, try baking instead of frying. Use low-fat dairy products. Meal planning Use more fruits and vegetables. Half of your plate should be fruits and vegetables. Include lean proteins like poultry and fish. How do I count calories when eating out? Ask for smaller portion sizes. Consider sharing an entree and sides instead of getting your own entree. If you get your own entree, eat only half. Ask for a box at the beginning of your meal and put the rest of your entree in it so you are not tempted to eat it. If calories are listed on the menu, choose the lower calorie options. Choose dishes that include vegetables, fruits, whole grains, low-fat dairy products, and lean protein. Choose items that are boiled, broiled, grilled, or steamed. Stay away from items that are buttered, battered, fried, or served with cream sauce. Items labeled crispy are usually fried, unless stated otherwise. Choose water, low-fat milk, unsweetened iced tea, or other drinks without added sugar. If you want an alcoholic beverage, choose a lower calorie option such as a glass of wine or light beer. Ask for dressings, sauces, and syrups on the side. These are usually high in calories, so you should limit the amount you eat. If you want a salad, choose a garden salad and ask for grilled meats. Avoid extra toppings like retana, cheese, or fried items. Ask for the dressing on the side, or ask for olive oil and vinegar or lemon to use as dressing. Estimate how many servings of a food you are given. For example, a serving of cooked rice is cup or about the size of half a baseball. Knowing serving sizes will help you be aware of how much food you are eating at restaurants. The list below tells you how big or small some common portion sizes are based on everyday objects: ?1 oz 4 stacked dice. ?3 oz 1 deck of cards. ?1 tsp 1 . ?1 Tbsp a ping-pong ball. ?2 Tbsp 1 ping-pong ball. ? cup baseball. ?1 cup 1 baseball. Summary Calorie counting means keeping track of how many calories you eat and drink each day. If you eat fewer calories than your body needs, you should lose weight. A healthy amount of weight to lose per week is usually 1 2 lb (0.5 0.9 kg). This usually means reducing your daily calorie intake by 500 750 calories. The number of calories in a food can be found on a Nutrition Facts label. If a food does not have a Nutrition Facts label, try to look up the calories online or ask your dietitian for help. Use your calories on foods and drinks that will fill you up, and not on foods and drinks that will leave you hungry. Use smaller plates, glasses, and bowls to prevent overeating. This information is not intended to replace advice given to you by your health care provider. Make sure you discuss any questions you have with your health care provider. Document Released: 07/28/2006 Document Revised: 04/16/2019 Document Reviewed: 06/27/2017 [employer] Patient Education 2020 [employer] 02/25/2022 15:28:39 Kidney Stones, Swic-tt-Aexr Kidney Stones Kidney stones are rock-like masses that form inside of the kidneys. Kidneys are organs that make pee (urine). A kidney stone may move into other parts of the urinary tract, including: The tubes that connect the kidneys to the bladder (ureters). The bladder. The tube that carries urine out of the body (urethra). Kidney stones can cause very bad pain and can block the flow of pee. The stone usually leaves your body (passes) through your pee. You may need to have a doctor take out the stone. What are the causes? Kidney stones may be caused by: A condition in which certain glands make too much parathyroid hormone (primary hyperparathyroidism). A buildup of a type of crystals in the bladder made of a chemical called uric acid. The body makes uric acid when you eat certain foods. Narrowing (stricture) of one or both of the ureters. A kidney blockage that you were born with. Past surgery on the kidney or the ureters, such as gastric bypass surgery. What increases the risk? You are more likely to develop this condition if: You have had a kidney stone in the past. You have a family history of kidney stones. You do not drink enough water. You eat a diet that is high in protein, salt (sodium), or sugar. You are overweight or very overweight (obese). What are the signs or symptoms? Symptoms of a kidney stone may include: Pain in the side of the belly, right below the ribs (flank pain). Pain usually spreads (radiates) to the groin. Needing to pee often or right away (urgently). Pain when going pee (urinating). Blood in your pee (hematuria). Feeling like you may vomit (nauseous). Vomiting. Fever and chills. How is this treated? Treatment depends on the size, location, and makeup of the kidney stones. The stones will often pass out of the body through peeing. You may need to: Drink more fluid to help pass the stone. In some cases, you may be given fluids through an IV tube put into one of your veins at the hospital. Take medicine for pain. Make changes in your diet to help keep kidney stones from coming back. Sometimes, medical procedures are needed to remove a kidney stone. This may involve: A procedure to break up kidney stones using a beam of light (laser) or shock waves. Surgery to remove the kidney stones. Follow these instructions at home: Medicines Take lrsr-apy-vydkbux and prescription medicines only as told by your doctor. Ask your doctor if the medicine prescribed to you requires you to avoid driving or using heavy machinery. Eating and drinking Drink enough fluid to keep your pee pale yellow. You may be told to drink at least 8 10 glasses of water each day. This will help you pass the stone. If told by your doctor, change your diet. This may include: ?Limiting how much salt you eat. ?Eating more fruits and vegetables. ?Limiting how much meat, poultry, fish, and eggs you eat. Follow instructions from your doctor about eating or drinking restrictions. General instructions Collect pee samples as told by your doctor. You may need to collect a pee sample: ?24 hours after a stone comes out. ?8 12 weeks after a stone comes out, and every 6 12 months after that. Strain your pee every time you pee (urinate), for as long as told. Use the strainer that your doctor recommends. Do not throw out the stone. Keep it so that it can be tested by your doctor. Keep all follow-up visits as told by your doctor. This is important. You may need follow-up tests. How is this prevented? To prevent another kidney stone: Drink enough fluid to keep your pee pale yellow. This is the best way to prevent kidney stones. Eat healthy foods. Avoid certain foods as told by your doctor. You may be told to eat less protein. Stay at a healthy weight. Where to find more information National Kidney Foundation (NKF): www.kidney.org [facility] (UCF): www.urologyhealth.org Contact a doctor if: You have pain that gets worse or does not get better with medicine. Get help right away if: You have a fever or chills. You get very bad pain. You get new pain in your belly (abdomen). You pass out (faint). You cannot pee. Summary Kidney stones are rock-like masses that form inside of the kidneys. Kidney stones can cause very bad pain and can block the flow of pee. The stones will often pass out of the body through peeing. Drink enough fluid to keep your pee pale yellow. This information is not intended to replace advice given to you by your health care provider. Make sure you discuss any questions you have with your health care provider. Document Released: 01/13/2009 Document Revised: 12/14/2019 Document Reviewed: 12/14/2019 [employer] Patient Education 2020 [employer] Follow Up Care 11/21/2021 12:48:10 With:THOR BATISTA, Miki Cedeño, URL Address: [facility] [address] , [place] [address]- [phone] When:Within 4 Month(s) Comments:4 mo fu with IVP [facility] Evaluation + Plan note 02-25-2022 Note Date & Type Note Facility 02-25-2022 Evaluation + Plan note Diagnostic Tests PendingPSA Total 02/25/22Creatinine 02/25/22 [facility] Evaluation + Plan note Note Date & Type Note Facility Evaluation + Plan note Future Appointments Appointment Date:04/16/2024 11:00:00 AM Scheduled Provider:THOR BATISTA, Miki Cedeño Location:[facility] Appointment Type:URO Office Visit [facility] Evaluation note Note Date & Type Note Facility Evaluation note No assessment information availa [facility] Work Phone: Hospital course Narrative Note Date & Type Note Facility Hospital course Narrative No data available for this section [facility] Progress note Note Date & Type Note Facility Progress note No data available for this section [facility] Chief Complaint and Reason for Visit Chief Complaint Left Kidney Stone St atus Post Right Stent Placemen Family History No Family History Records Found Relationship Condition Age at Onset Recorded Date/T miranda father Malignant neoplasm of prostate Unknown Myocardial infarction Unknown Not Specified Malignant neoplasm of breast Unknown Celiac disease Unknown Advance Directives No Advanced Directives Records Found Advance Directive Response Recorded Date/ Time Advance Directives No April 2:24pm Summary Purpose Additional Source Comments Care Teams (unrecognized sec tion and content) Team Status: Inactive Member Role Status Dates Marielle Lerma MD Primary Care Provider Active Miki Zeng MD Attending Provider Active Team Status: Active Member Role Status Dates Marielle Lerma MD Primary Care Provider Active Goals (unrecognized section and content) Goals may be documented in a n alternate section No data available for this section No data available for this section (unrecognized sect ion and content) No Status Records FoundNo Status Records FoundNo Status Records Found INFORMATION SOURCE (unrecogn ized section and content) DATE CREATED AUTHOR 11/22/2021 [facility] DATE CREATED AUTHOR AUTHOR'S ORGANIZ ATION 08/13/2022 [facility] DATE CREATED AUTHOR AUTHOR'S ORGANIZ ATION 04/12/2023 [facility] [place] FOR RECORDS PERTAINING TO PATIENTS WHO ARE OR HAVE BEEN ENROLLED IN A CHEMICAL DEPENDENCY/SUBSTANCEABUSE PROGRAM, SOME INFORMATION MAY BE OMITTED. This clinical summary was aggregated from multiple sources. Caution should be exercised in using it in the provision of clinical care. This summary normalizes information from multiple sources, and as a consequence, information in this document may materially change the coding, format and clinical context of patient data. In addition, data may be omitted in some cases. CLINICAL DECISIONS SHOULD BE BASED ON THE PRIMARY CLINICAL RECORDS. [employer] provides no warranty or guarantee of the accuracy or completeness of information in this document.
--- NOTE | 2023-09-02 13:52 | XR_ITS ---
The [address] [address] Patient Name: RIZWAN LOCK MRN: [id number] date: 1950 Sex: M Assigned Patient Location: ER Current Patient Location: ER Accession/Order Number: [id number] Exam Date: 09/02/2023 14:05 Report Date: 09/02/2023 14:25 At the request of: IRIS REIS Procedure: XR chest 1V EXAMINATION: XR chest 1V HISTORY: Cough COMPARISON: 07/26/2022 TECHNIQUE: AP portable FINDINGS: LUNGS: Low lung volumes. The lungs are clear VASCULATURE: No increased pulmonary vasculature. PLEURA: No pneumothorax, effusion, or pleural thickening. Elevation the right hemidiaphragm, stable CARDIAC: No cardiomegaly or cardiac silhouette abnormality. MEDIASTINUM: No visible mass or adenopathy. Aortic atherosclerosis BONES: No fracture or visible bone lesion. OTHER: Negative. XR/XR chest 1V IMPRESSION: Clear lungs Electronically authenticated by: RAFAEL GRAVES Date: 09/02/2023 14:25
--- NOTE | 2023-09-02 13:54 | ED_ITS ---
HPI - SOB/Dyspnea General Chief Complaint: Shortness of Breath/Dyspnea Stated Complaint: SOB Chest Pain Time Seen by Provider: 09/02/23 13:39 Source: patient Mode of arrival: Wheelchair History of Present Illness HPI Narrative: Patient is a 73-year-old male who presents to the emergency department for the evaluation of shortness of breath, cough and congestion for at least 5 weeks. Patient was seen in this emergency department on 08/15/23 for cough, congestion, pain between the scapula is radiating to the chest and was found to have no acute process on CT angio of the chest and lab work. He was admitted for ACS rule out and will has been on 3 different antibiotics since discharge. He is currently finishing a 10-day prescription of doxycycline. He has also been on Levaquin and then cefdinir. Patient also has taken a prescription of prednisone and is currently finishing a prescription of dexamethasone. He has not been on inhalers. He reports continued shortness of breath although he states he has had no chest pain, hemoptysis, leg swelling. No fevers or vomiting. He states he feels generally weak. Related Data Home Medications Medication Instructions Recorded Confirmed allopurinol 300 mg tablet 300 mg PO DAILY 08/15/23 09/02/23 hydrochlorothiazide 12.5 mg capsule 12.5 mg PO QDAY 08/15/23 09/02/23 meloxicam 15 mg tablet 15 mg PO DAILY 08/15/23 09/02/23 potassium citrate 10 mEq (1,080 10 meq PO BID 08/15/23 09/02/23 mg) tablet,extended release primidone 50 mg tablet 50 mg PO BID 08/15/23 09/02/23 simvastatin 20 mg tablet 20 mg PO .QHS 08/15/23 09/02/23 solifenacin 10 mg tablet 10 mg PO DAILY 08/15/23 09/02/23 tamsulosin 0.4 mg capsule 0.4 mg PO Q24H 08/15/23 09/02/23 lisinopril 40 mg tablet 40 mg PO .QD 09/02/23 09/02/23 Previous Rx's Medication Instructions Recorded aspirin 81 mg capsule 81 mg PO DAILY #30 caps 08/15/23 Allergies Allergy/AdvReac Type Severity Reaction Status Date / Time No Known Drug Allergies Allergy Verified 08/15/23 09:06 Review of Systems ROS Constitutional Denies: fever or chills Ears, nose, mouth, and throat Reports: nasal congestion; Denies: throat pain Cardiovascular Denies: chest pain Respiratory Reports: shortness of breath, cough, wheezing, change in phlegm color and chest congestion; Denies: coughing up blood Gastrointestinal Denies: nausea, vomiting or diarrhea Musculoskeletal Denies: back pain, neck pain or extremity pain Integumentary/Breast Denies: rash Neurological Denies: headache Hematologic/Lymphatic Denies: easy bruising PFSH PFS Medical History (Updated 09/02/23 @ 16:22 by Nory Patel) 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 - Broken internal right knee prosthesis, initial encounter (ICD-10) Umbilical hernia ?K42.9 - Umbilical hernia without obstruction or gangrene (ICD-10) Kidney stones ?N20.0 - Calculus of kidney (ICD-10) Hx of skin malignancy ?Z85.828 - Personal history of other malignant neoplasm of skin (ICD-10) Chest pain ?R07.9 - Chest pain, unspecified (ICD-10) Surgical History (Updated 09/02/23 @ 16:17 by Nory Patel) History of cataract surgery ?Z98.49 - Cataract extraction status, unspecified eye (ICD-10) History of renal stent H/O lithotripsy ?Z98.890 - Other specified postprocedural states (ICD-10) Family History (Updated 09/02/23 @ 16:18 by Nory Patel) Mother Family history of cancer Family history of hypertension Father Family history of diabetes mellitus Family history of hypertension Family history of myocardial infarction Social History (Updated 09/02/23 @ 16:20 by Nory Patel) Within the past year, how often did you have a drink containing alcohol: 2-4 times a month Smoking status: Former smoker Non-prescribed substance use: denies use Previous occupational history: Retired Highest level of school completed/degree received: Associate degree: occupational, technical, vocational program Are you now , , , , never or living with a partner: In a typical week, how many times do you talk on the telephone with family, friends, or neighbors: 3 or more times per week How often do you get together with friends or relatives: 3 or more times per week How often do you attend latter day or yarsanism services: never Do you belong to any clubs or organizations such as latter day groups unions, fraternal or athletic groups, or school groups: no Total score: 2 Score interpretation: A score of greater than or equal to 2 indicates the lowest level of social isolation. Little interest or pleasure in doing things: not at all Feeling down, depressed, or hopeless: not at all Feel stressed/tense/nervous/anxious/difficulty sleeping: not at all Do you think of yourself as: straight/heterosexual Gender Identity: male Exam Narrative Exam Narrative: Gen.: Awake, alert, in no distress Head: Normocephalic, atraumatic ENT: Moist mucous membranes Respiratory: No respiratory distress, Faint expiratory wheezing, harsh cough, Otherwise speaks in full sentences Cardio: Regular rate and rhythm Extremities: Moves extremities equally, No pedal edema Psych: Normal mood and affect Neuro: No focal neuro deficit Skin: Warm, dry, intact Constitutional Vital Signs, click to edit/add: Last Vital Signs Temp 97.4 F L 09/04/23 16:05 Pulse 109 H 09/04/23 16:54 Resp 18 09/04/23 04:51 BP 180/80 H 09/04/23 16:05 Pulse Ox 95 09/04/23 16:17 O2 Del Method Room Air 09/04/23 16:17 Course Vital Signs Vital signs: Vital Signs Blood Pressure 137/77 09/02/23 08:54 Temperature 97.4 F L 09/04/23 16:05 Pulse Rate 109 H 09/04/23 16:54 Respiratory Rate 18 09/04/23 04:51 Blood Pressure 180/80 H 09/04/23 16:05 Pulse Oximetry 95 09/04/23 16:17 Oxygen Delivery Method Room Air 09/04/23 16:17 MDM - SOB/Dyspnea MDM Narrative Medical decision making narrative: Patient given IV fluids, breathing treatment, Solu-Medrol. Vital signs are improved, although on reevaluation the patient states he is significantly congested and is requesting an antihistamine and states he still feels very lightheaded. He will be admitted for failure of outpatient treatment for shortness of breath and upper respiratory symptoms. I discussed this with Dr. Blake For Dr. Lerma who accepted the admission. Azithromycin and Rocephin given in the ER with Zyrtec. Patient admitted with unremarkable labs other than leukocytosis which may be secondary to steroid use and elevated BUN and lactic acid indicating dehydration. Patient is stable on reevaluation. Medical Records Attestation: I reviewed the patient's medical records. Lab Data Attestation: I reviewed the patient's lab results. Labs: Lab Results 09/02/23 09/02/23 09/02/23 Range/Units 13:48 13:51 14:30 WBC 23.9 H (4.0-11.0) 10^3/uL RBC 5.59 (4.70-6.10) 10^6/uL Hgb 16.5 (14.0-18.0) g/dL Hct 50.3 (42.0-54.0) % MCV 90.0 (80.0-94.0) fL MCH 29.5 (25.9-34.0) pg MCHC 32.8 (29.9-35.2) g/dL RDW 14.5 (11.0-15.0) % Plt Count 294 (150-450) 10^3/uL MPV 9.7 (9.5-13.5) fL Neut % (Auto) 72.2 (43.0-75.0) % Lymph % (Auto) 20.1 L (20.5-60.0) % [place] % (Auto) 5.9 (1.7-12.0) % Eos % (Auto) 0.4 L (0.9-7.0) % Baso % (Auto) 0.3 (0.2-2.0) % Neut # (Auto) 17.2 H (1.4-6.5) 10^3/uL Lymph # (Auto) 4.8 H (1.2-3.8) 10^3/uL [place] # (Auto) 1.4 H (0.3-0.8) 10^3/uL Eos # (Auto) 0.1 (0.0-0.7) 10^3/uL Baso # (Auto) 0.1 (0.0-0.1) 10^3/uL Abs Immat Gran (auto) 0.27 H (0.00-0.03) 10^3/uL Imm/Tot Granulo (auto) 1.1 H (0.0-0.5) % PT 10.4 (9.0-11.6) sec INR 0.98 VBG pH 7.466 H (7.330-7.430) VBG pCO2 31.0 L (40.0-52.0) mmHg Sodium 141 (136-145) mmol/L Potassium 3.5 (3.5-5.1) mmol/L Chloride 105 (98-107) mmol/L Carbon Dioxide 27.5 (21.0-32.0) mmol/L Anion Gap 12.0 BUN 26.0 H (7.0-18.0) mg/dL Creatinine 1.09 (0.70-1.30) mg/dL Est GFR ( Amer) >60 (>=60) Est GFR (Non-Af Amer) >60 (>=60) BUN/Creatinine Ratio 23.9 Glucose 102 (74-106) mg/dL Lactate 3.4 H* (0.4-2.0) mmol/L Calcium 8.8 (8.5-10.1) mg/dL Total Bilirubin 0.6 (0.2-1.0) mg/dL AST 17 (15-37) U/L ALT 41 (16-63) U/L Alkaline Phosphatase 51 (46-116) U/L Troponin I High Sens 6.6 (4.0-76.1) pg/mL NT-Pro-B Natriuret Pep 141.0 (<=900.0) pg/mL Total Protein 6.8 (6.4-8.2) g/dL Albumin 3.1 L (3.4-5.0) g/dL Globulin 3.7 g/dL Albumin/Globulin Ratio 0.8 Procalcitonin <0.05 (0.00-0.50) ng/mL Adenovirus (PCR) Not detected (NOT DETECTE) C. pneumoniae DNA (PCR) Not detected (NOT DETECTE) Coronavirus Type OC43 Not detected (NOT DETECTE) Coronavirus Type HKU1 Not detected (NOT DETECTE) Coronavirus Type 229E Not detected (NOT DETECTE) Coronavirus Type NL63 Not detected (NOT DETECTE) Human Metapneumovir PCR Not detected (NOT DETECTE) M. pneumoniae (PCR) Not detected (NOT DETECTE) Parainfluenza PCR Not detected (NOT DETECTE) Parainfluenza 2 (PCR) Not detected (NOT DETECTE) Parainfluenza 3 (PCR) Not detected (NOT DETECTE) Parainfluenza 4 (PCR) Not detected (NOT DETECTE) RSV (RT-PCR) Not detected (NOT DETECTE) Entero/Rhino (PCR) Not detected (NOT DETECTE) SARS-CoV-2 (PCR) Not detected (NOT DETECTE) Bordetella pertussis (PCR) Not detected (NOT DETECTE) B parapertussis DNA PCR Not detected (NOT DETECTE) Influenza Type A (PCR) Not detected (NOT DETECTE) Influenza Type B (PCR) Not detected (NOT DETECTE) 09/02/23 09/02/23 09/02/23 Range/Units 17:32 20:37 23:28 WBC (4.0-11.0) 10^3/uL RBC (4.70-6.10) 10^6/uL Hgb (14.0-18.0) g/dL Hct (42.0-54.0) % MCV (80.0-94.0) fL MCH (25.9-34.0) pg MCHC (29.9-35.2) g/dL RDW (11.0-15.0) % Plt Count (150-450) 10^3/uL MPV (9.5-13.5) fL Neut % (Auto) (43.0-75.0) % Lymph % (Auto) (20.5-60.0) % Rutherford % (Auto) (1.7-12.0) % Eos % (Auto) (0.9-7.0) % Baso % (Auto) (0.2-2.0) % Neut # (Auto) (1.4-6.5) 10^3/uL Lymph # (Auto) (1.2-3.8) 10^3/uL [place] # (Auto) (0.3-0.8) 10^3/uL Eos # (Auto) (0.0-0.7) 10^3/uL Baso # (Auto) (0.0-0.1) 10^3/uL Abs Immat Gran (auto) (0.00-0.03) 10^3/uL Imm/Tot Granulo (auto) (0.0-0.5) % PT (9.0-11.6) sec INR VBG pH (7.330-7.430) VBG pCO2 (40.0-52.0) mmHg Sodium (136-145) mmol/L Potassium (3.5-5.1) mmol/L Chloride (98-107) mmol/L Carbon Dioxide (21.0-32.0) mmol/L Anion Gap BUN (7.0-18.0) mg/dL Creatinine (0.70-1.30) mg/dL Est GFR ( Amer) (>=60) Est GFR (Non-Af Amer) (>=60) BUN/Creatinine Ratio Glucose (74-106) mg/dL Lactate 2.5 H* 2.8 H* 2.6 H* (0.4-2.0) mmol/L Calcium (8.5-10.1) mg/dL Total Bilirubin (0.2-1.0) mg/dL AST (15-37) U/L ALT (16-63) U/L Alkaline Phosphatase (46-116) U/L Troponin I High Sens (4.0-76.1) pg/mL NT-Pro-B Natriuret Pep (<=900.0) pg/mL Total Protein (6.4-8.2) g/dL Albumin (3.4-5.0) g/dL Globulin g/dL Albumin/Globulin Ratio Procalcitonin (0.00-0.50) ng/mL Adenovirus (PCR) (NOT DETECTE) C. pneumoniae DNA (PCR) (NOT DETECTE) Coronavirus Type OC43 (NOT DETECTE) Coronavirus Type HKU1 (NOT DETECTE) Coronavirus Type 229E (NOT DETECTE) Coronavirus Type NL63 (NOT DETECTE) Human Metapneumovir PCR (NOT DETECTE) M. pneumoniae (PCR) (NOT DETECTE) Parainfluenza PCR (NOT DETECTE) Parainfluenza 2 (PCR) (NOT DETECTE) Parainfluenza 3 (PCR) (NOT DETECTE) Parainfluenza 4 (PCR) (NOT DETECTE) RSV (RT-PCR) (NOT DETECTE) Entero/Rhino (PCR) (NOT DETECTE) SARS-CoV-2 (PCR) (NOT DETECTE) Bordetella pertussis (PCR) (NOT DETECTE) B parapertussis DNA PCR (NOT DETECTE) Influenza Type A (PCR) (NOT DETECTE) Influenza Type B (PCR) (NOT DETECTE) 09/03/23 09/03/23 09/03/23 Range/Units 02:39 02:49 05:44 WBC 18.5 H (4.0-11.0) 10^3/uL RBC 5.31 (4.70-6.10) 10^6/uL Hgb 15.7 (14.0-18.0) g/dL Hct 47.4 (42.0-54.0) % MCV 89.3 (80.0-94.0) fL MCH 29.6 (25.9-34.0) pg MCHC 33.1 (29.9-35.2) g/dL RDW 14.3 (11.0-15.0) % Plt Count 241 (150-450) 10^3/uL MPV 9.6 (9.5-13.5) fL Neut % (Auto) 92.2 H (43.0-75.0) % Lymph % (Auto) 4.2 L (20.5-60.0) % [place] % (Auto) 1.9 (1.7-12.0) % Eos % (Auto) 0.0 L (0.9-7.0) % Baso % (Auto) 0.2 (0.2-2.0) % Neut # (Auto) 17.1 H (1.4-6.5) 10^3/uL Lymph # (Auto) 0.8 L (1.2-3.8) 10^3/uL [place] # (Auto) 0.4 (0.3-0.8) 10^3/uL Eos # (Auto) 0.0 (0.0-0.7) 10^3/uL Baso # (Auto) 0.0 (0.0-0.1) 10^3/uL Abs Immat Gran (auto) 0.28 H (0.00-0.03) 10^3/uL Imm/Tot Granulo (auto) 1.5 H (0.0-0.5) % PT (9.0-11.6) sec INR VBG pH (7.330-7.430) VBG pCO2 (40.0-52.0) mmHg Sodium 142 (136-145) mmol/L Potassium 4.1 (3.5-5.1) mmol/L Chloride 107 (98-107) mmol/L Carbon Dioxide 24.7 (21.0-32.0) mmol/L Anion Gap 14.4 BUN 21.0 H (7.0-18.0) mg/dL Creatinine 0.90 (0.70-1.30) mg/dL Est GFR ( Amer) >60 (>=60) Est GFR (Non-Af Amer) >60 (>=60) BUN/Creatinine Ratio 23.3 Glucose 136 H (74-106) mg/dL Lactate 2.7 H* 4.5 H* (0.4-2.0) mmol/L Calcium 8.4 L (8.5-10.1) mg/dL Total Bilirubin (0.2-1.0) mg/dL AST (15-37) U/L ALT (16-63) U/L Alkaline Phosphatase (46-116) U/L Troponin I High Sens 7.5 (4.0-76.1) pg/mL NT-Pro-B Natriuret Pep 130.0 (<=900.0) pg/mL Total Protein (6.4-8.2) g/dL Albumin (3.4-5.0) g/dL Globulin g/dL Albumin/Globulin Ratio Procalcitonin (0.00-0.50) ng/mL Adenovirus (PCR) (NOT DETECTE) C. pneumoniae DNA (PCR) (NOT DETECTE) Coronavirus Type OC43 (NOT DETECTE) Coronavirus Type HKU1 (NOT DETECTE) Coronavirus Type 229E (NOT DETECTE) Coronavirus Type NL63 (NOT DETECTE) Human Metapneumovir PCR (NOT DETECTE) M. pneumoniae (PCR) (NOT DETECTE) Parainfluenza PCR (NOT DETECTE) Parainfluenza 2 (PCR) (NOT DETECTE) Parainfluenza 3 (PCR) (NOT DETECTE) Parainfluenza 4 (PCR) (NOT DETECTE) RSV (RT-PCR) (NOT DETECTE) Entero/Rhino (PCR) (NOT DETECTE) SARS-CoV-2 (PCR) (NOT DETECTE) Bordetella pertussis (PCR) (NOT DETECTE) B parapertussis DNA PCR (NOT DETECTE) Influenza Type A (PCR) (NOT DETECTE) Influenza Type B (PCR) (NOT DETECTE) Imaging Data Chest x-ray: Attestation: I have reviewed the pertinent imaging results. Radiologist's impression: ITS Impressions Chest X-Ray 09/02/23 13:52 IMPRESSION: Clear lungs Electronically authenticated by: RAFAEL GRAVES Date: 09/02/2023 14:25 Chest X-Ray 09/03/23 07:44 IMPRESSION: No acute cardiopulmonary process Electronically authenticated by: RAFAEL GRAVES Date: 09/03/2023 08:56 ECG Data Attestation: I personally reviewed and interpreted this ECG as follows: (Normal sinus rhythm at a rate of 87 with occasional PVC, no acute ST elevation. First- degree AV block, EKG reviewed by attending physician) ECG interpretation date: 09/02/23 Discharge Plan Discharge Chief Complaint: Shortness of Breath/Dyspnea Clinical Impression: Acute dyspnea, Weakness, Dehydration Patient Disposition: Admitted as Observation Condition: Good Discharge Date/Time: 09/02/23 16:00
[2023-09-02 13:57] LABS: Adenovirus NOT DETECTED (NOT DETECTE); Bordetella parapertussis NOT DETECTED (NOT DETECTE); Coronavirus 229E NOT DETECTED (NOT DETECTE); Coronavirus HKU1 NOT DETECTED (NOT DETECTE); Coronavirus NL63 NOT DETECTED (NOT DETECTE); Coronavirus OC43 NOT DETECTED (NOT DETECTE); Human Metapneumovirus NOT DETECTED (NOT DETECTE); Human Rhinovirus/Enterovirus NOT DETECTED (NOT DETECTE); Influenza A NOT DETECTED (NOT DETECTE); Influenza B NOT DETECTED (NOT DETECTE); Mycoplasma pneumoniae NOT DETECTED (NOT DETECTE); Parainfluenza Virus 1 NOT DETECTED (NOT DETECTE); Parainfluenza Virus 2 NOT DETECTED (NOT DETECTE); Parainfluenza Virus 3 NOT DETECTED (NOT DETECTE); Parainfluenza Virus 4 NOT DETECTED (NOT DETECTE); Respiratory Syncytial Virus NOT DETECTED (NOT DETECTE); SARS-CoV-2 NOT DETECTED (NOT DETECTE)
[2023-09-02 14:00] LABS: Basophils Absolute Auto 0.1 10^3/uL (0.0-0.1); Basophils Percent Auto 0.3 % (0.2-2.0); Eosinophils Absolute Auto 0.1 10^3/uL (0.0-0.7); Eosinophils Percent Auto 0.4 % (0.9-7.0); Hematocrit 50.3 % (42.0-54.0); Hemoglobin 16.5 g/dL (14.0-18.0); Immature Granulocytes Abs Auto 0.27 10^3/uL (0.00-0.03); Immature Granulocytes Pct Auto 1.1 % (0.0-0.5); Lymphocytes Absolute Auto 4.8 10^3/uL (1.2-3.8); Lymphocytes Percent Auto 20.1 % (20.5-60.0); Mean Corpuscular HGB Conc 32.8 g/dL (29.9-35.2); Mean Corpuscular Hemoglobin 29.5 pg (25.9-34.0); Mean Platelet Volume 9.7 fL (9.5-13.5); Monocytes Absolute Auto 1.4 10^3/uL (0.3-0.8); Monocytes Percent Auto 5.9 % (1.7-12.0); Neutrophils Absolute Auto 17.2 10^3/uL (1.4-6.5); Neutrophils Percent Auto 72.2 % (43.0-75.0); Platelet Count 294 10^3/uL (150-450); Red Blood Count 5.59 10^6/uL (4.70-6.10); Red Cell Distribution Width 14.5 % (11.0-15.0); White Blood Count 23.9 10^3/uL (4.0-11.0)
[2023-09-02] MEDS: ALBUTEROL SULFATE 2.5 MG/3 ML VIAL NEB IH (14:04)
[2023-09-02] MEDS: METHYLPREDNISOLONE SOD SUCC PF 125 MG/2 ML VIAL IVP (14:13)
[2023-09-02] MEDS: 0.9 % SODIUM CHLORIDE 1,000 ML 1000 ML IV (14:13)
[2023-09-02 14:16] LABS: Alanine Aminotransferase 41 U/L (16-63); Albumin Globulin Ratio 0.8; Albumin Level 3.1 g/dL (3.4-5.0); Alkaline Phosphatase 51 U/L (46-116); Aspartate Amino Transferase 17 U/L (15-37); BUN Creatinine Ratio 23.9; Bilirubin Total 0.6 mg/dL (0.2-1.0); Calcium 8.8 mg/dL (8.5-10.1); Carbon Dioxide 27.5 mmol/L (21.0-32.0); Chloride 105 mmol/L (98-107); Estimated GFR (African America >60 (>=60); Estimated GFR (Non-African Ame >60 (>=60); Globulin 3.7 g/dL; Glucose 102 mg/dL (74-106); Potassium 3.5 mmol/L (3.5-5.1); Sodium 141 mmol/L (136-145); Total Protein 6.8 g/dL (6.4-8.2)
[2023-09-02 14:22] LABS: Troponin I High Sensitivity 6.6 pg/mL (4.0-76.1)
[2023-09-02 14:37] LABS: INR 0.98; Prothrombin Time 10.4 sec (9.0-11.6)
[2023-09-02 14:38] LABS: pH VBG 7.466 (7.330-7.430)
[2023-09-02 14:58] LABS: Lactate/Lactic Acid 3.4 mmol/L (0.4-2.0)
[2023-09-02 15:11] LABS: PROCALCITONIN <0.05 ng/mL (0.00-0.50)
[2023-09-02] MEDS: CEFTRIAXONE 1,000 MG in 0.9 % SODIUM CHLORIDE 50 ML 100 MG IV (15:40)
[2023-09-02] MEDS: CETIRIZINE HCL 10 MG TABLET PO (15:45)
[2023-09-02] MEDS: AZITHROMYCIN 500 MG in 0.9 % SODIUM CHLORIDE 250 ML 250 MG IV (16:07)
--- OUTSIDE RECORDS SUMMARY | 2023-09-02 16:11 | XMS_ITS | CCD ---
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 Operator Name Role Phone MD Marielle Lerma Primary Care Provider [phone] MD Miki Zeng Attending Provider Marielle Lerma Primary Care Physician DR MIKI ZENG Admitting Unavailable THOR, DR [...] PALOMARES Primary Care Unavailable ZENG, DR SWEET Admitting Unavailable ZENG, [...] Medication Allergies] Propensity to adverse reactions (disorder) [facility] Repository Medications Current Medications Medication Drug Class(es) [...] mouth every four to six hours Hydrocodone-Acetaminophen ([place]) 5-325 mg tablet Active 1 TAB PO EVERY 4-6 HOURS 40 7 September 28, 2019 1:45pm allopurinol 300 mg oral tablet (2 sources) Xanthine Oxidase Inhibitor Start: 03-10-2023 take 1 tablet by mouth once daily allopurinol 300 mg Tab 300 mg = 1 tab(s), Oral, Daily, # 90 tab(s), Refills(s) 3, Pharmacy: [facility]/pharmacy #[id number], 180, cm, 08/19/22 9:50:00 EST, Height/Length Dosing, 136.2, kg, 08/19/22 9:50:00 EST, Weight Dosing Start Date: 03/10/23 Status: Ordered Start: 02-25-2022 allopurinol 30 0 mg Tab 150 mg = 0.5 tab(s), Oral, Daily, # 30 tab(s), Refills(s) 11, Pharmacy: [facility]72, 180, cm, 02/25/22 14:22:00 EDT, [...] Daily, # 90 cap(s), Refills(s) 3, Pharmacy: [facility]/pharmacy #[id number], 180, cm, 08/19/22 9:50:00 EST, Height/Length Dosing, 136.2, kg, 08/19/22 9:50:00 EST, Weight Dosing Start Date: 08/19/22 Status: Ordered Start: 02-25-2022 take 1 capsule by mo [facility] [place] once daily hydrochlorothiazide 12.5 mg Cap 12.5 mg = 1 cap(s), Oral, Daily, # 30 cap(s), Refills(s) 6, Pharmacy: [facility] #72, 180, cm, 02/25/22 14:22:00 EDT, [...] PO Twice daily January 02, 2018 9:35am Zvnhhfpf-Gak-Gc-Lycopen-Lute in (Centrum Silver) 0.4-300-250 mg-mcg-mcg Tablet (1 source) Start: 09-02-2019 take 1 tablet by mouth once daily Porohpcf-Hrx-Jl-Lycopen-Lutein (Centrum Silver) 0.4-300-250 mg-mcg-mcg Tablet Active 1 [...] tab(s), Oral, BID, 60 tab(s), Refill(s) 11, [facility]/pharmacy #[id number], 180, cm, 04/11/23 11:56:00 EDT, Height/Length [...] BID, # 90 tab(s), Refills(s) 3, Pharmacy: [facility]/pharmacy #[id number], 180, cm, 08/19/22 9:50:00 EST, Height/Length Dosing, 136.2, kg, 08/19/22 9:50:00 EST, Weight Dosing Start Date: 08/19/22 Status: Ordered solifenacin succinate 10 mg oral tablet (2 sources) Cholinergic Muscarinic Antagonist Start: 04-08-2022 End: 12-23-2024 take 1 tablet by mouth once daily Vesicare 10 mg Tab 10 mg = 1 tab(s), Oral, Daily, X 90 day(s), # 90 tab(s), Refills(s) 11, Pharmacy: [facility] #[id number], 180, cm, 02/25/22 14:22:00 EDT, Height/Length Dosing, 135, kg, 02/25/22 14:22:00 EDT, Weight Dosing Start Date: 04/08/22 Stop Date: 12/23/24 Status: Ordered Start: 02-25-2022 take 1 tablet by isa once daily Vesicare 10 mg Tab 10 mg = 1 tab(s), Oral, Daily, # 30 tab(s), Refills(s) 11, Pharmacy: [facility]/pharmacy #[id number], 180, cm, 02/25/22 14:22:00 EDT, Height/Length Dosing, 135, kg, 02/25/22 14:22:00 EDT, Weight Dosing Start Date: 02/25/22 Status: Ordered tadalafil 20 mg oral tablet (3 sources) Phosphodiesterase 5 Inhibitor Start: 10-23-2021 take 1 tablet by mouth once daily Cialis 20 mg Tab 20 mg = 1 tab(s), Oral, Daily, # 30 tab(s), Refills(s) 6, Pharmacy: [facility]/pharmacy #[id number], 180, cm, 10/22/21 14:56:00 EDT, Height/Length [...] Daily, # 90 cap(s), Refills(s) 3, Pharmacy: [facility]/pharmacy #[id number], 180, cm, 04/11/23 11:56:00 EDT, Height/Length [...] Coronary atherosclerosis; Translations: [Atherosclerotic heart disease of [place] coronary artery without angina pectoris] Onset: 11-05-2021 [...] Onset: 08-01-2022 Chronic 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; Translations: [SHELTER CURRENT USE OF ASPIRIN] Onset: 08-01-2022 Episodic Other 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) Other residential (current) 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; Translations: [OTH SHELTER CURRENT DRUG THERAPY] Onset: 08-01-2022 Episodic Other [...] Onset: 02-18-2022 Episodic Other 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 8 oz (237 mL) of milk, tzqwkxy-hyvpbxasypbs-kuyq y milk, and calcium-fortifiedfruit juice. Calcium-fortified means [...] Spinach (cooked), rhubarb, beets, sweet potatoes, and Danish chard. ? Peanuts. ? Potato chips, maldivian fries, and baked potatoes with skin on. ? Nuts and nut products. ? Chocolate. ? If you regularly take a diuretic medicine, make sure to eat at least 1 or 2 servings of fruits or vegetables that are high in potassium each day. These include: ? Avocado. ? Banana. ? Mellette, prune, carrot, or tomato juice. ? Baked [...] fish oil, or vitamin B6. ? Take ksgv-tmv-sieqyew and prescription medicines only as told by your health care provider. These include supplements. What foods should I limit? Limit your in (more content not included)... Normal [facility] Urology Office/Clinic Noteon 04-11-2023 Urology Office/Clinic Note [...] [facility] [address], [place] [address]- Additional Instructions: Patient Education Dietary Guidelines to Help Prevent Kidney Stone (more content not included)... Normal [facility] Comment on above: Result Comment: Elec tronically Signed By: Miki ZENG MD\.br\Date and Time Signed: 04/11/23 12:49 EDT\.br\Electronically Co-Signed By: Sherice Cloud\.br\Date and Time Co-Signed: 04/11/23 12:48 EDT RAD - Ultrasound Reporton RAD - Ultrasound Report [id number]#[id number]:12 7 [facility] RAD - Ultrasound Report [id number]:12 7 [facility] Screenson 08-20-2022 Screens [id number]:12 7 [facility] Ambulatory Visit Summaryon 0 08-19-2022 Ambulatory Visit Summary TOM APARICIO :1950 Visit Date:08/19/2022 Ambulatory Visit Instructions Your Diagnosis BPH with urinary obstruction Kidney stone Nocturia Impotence Other obstructive and reflux uropathy Tests Performed Urnls Dip Stick Auto w/o Microscopy POC 15119 US Renal -- Results Pending -- Please [...] BATISTA, Miki Cedeño Where: [facility] Patient Educationon 08-19-19 Patient Education Urology [...] Follow these instructions at home: ? Take tzra-fei-aawimde and prescription medicines only as told by [...] You d (more content not included)... Normal [facility] Urology Office/Clinic Noteon 08-19-2022 Urology Office/Clinic Note [...] [facility] [address], [place] [phone] Additional Instructions: w/ renal US Patient Education [...] Medications acetaminophen-h (more content not included)... Normal [facility] Comment on above: Result Comment: Elec tronically Signed By: Miki ZENG MD\.br\Date and Time Signed: 08/19/22 10:44 EST\.br\Electronically Co-Signed By: Brenda Lopez\.br\Date and Time Co-Signed: 08/19/22 10:38 EST CBC AUTO DIFFon 07-27-2022 BASO # 0.1 103/ul Normal 0.0-0.1 [facility] Comment on above: Performed By: #### U DINA, LIPID, TSH, BNP, CMP, T7 #### [facility] [address] [place] [address] Dr. Suzie Brooks Basophils/100 WBC (Bld) 0.5 % Normal 0.2-2.0 [facility] Comment on above: Performed By: #### U DINA, LIPID, TSH, BNP, CMP, T7 #### [facility] [address] [place] [address] Dr. Suzie Brooks EO # 0.4 103/ul Normal 0.0-0.7 [facility] Comment on above: Performed By: #### U DINA, LIPID, TSH, BNP, CMP, T7 #### [facility] [address] [place] [address] Dr. Suzie Brooks Eosinophils/100 WBC (Bld) 3.3 % Normal 0.9-7.0 [facility] Comment on above: Performed By: #### U DINA, LIPID, TSH, BNP, CMP, T7 #### [facility] [address] [place] [address] Dr. Suzie Brooks Erythrocyte distribution width (RBC) [Ratio] 14.6 % Normal 11.0-15.0 [facility] Comment on above: Performed By: #### U DINA, LIPID, TSH, BNP, CMP, T7 #### [facility] [address] [place] [address] Dr. Suzie Brooks Hematocrit (Bld) [Volume fraction] 42.0 % Normal 42.0-54.0 [facility] Comment on above: Performed By: #### U DINA, LIPID, TSH, BNP, CMP, T7 #### [facility] [address] [place] [address] Dr. Suzie Brooks Hemoglobin (Bld) [Mass/Vol] 14.1 g/dL Normal 14.0-18.0 [facility] Comment on above: Performed By: #### U DINA, LIPID, TSH, BNP, CMP, T7 #### [facility] [address] [place] [address] Dr. Suzie Brooks IG # 0.03 10e3/ul Normal 0.00-0.03 [facility] Comment on above: Performed By: #### U DINA, LIPID, TSH, BNP, CMP, T7 #### [facility] [address] [place] [address] Dr. Suzie Brooks IG % 0.3 % Normal 0.0-0.5 [facility] Comment on above: Performed By: #### U DINA, LIPID, TSH, BNP, CMP, T7 #### [facility] [address] [place] [address] Dr. Suzie Brooks LYMPH # 3.1 103/ul Normal 1.2-3.8 [facility] Comment on above: Performed By: #### U DINA, LIPID, TSH, BNP, CMP, T7 #### [facility] [address] [place] [address] Dr. Suzie Brooks Lymphocytes/100 WBC (Bld) 28.2 % Normal 20.5-60.0 [facility] Comment on above: Performed By: #### U DINA, LIPID, TSH, BNP, CMP, T7 #### [facility] [address] [place] [address] Dr. Suzie Brooks MANUAL DIFF REQ NO Normal [facility] Comment on above: Performed By: #### U DINA, LIPID, TSH, BNP, CMP, T7 #### [facility] [address] [place] [address] Dr. Suzie Brooks MCH (RBC) [Entitic mass] 28.5 pg Normal 25.9-34.0 [facility] Comment on above: Performed By: #### U DINA, LIPID, TSH, BNP, CMP, T7 #### [facility] [address] [place] [address] Dr. Suzie Brooks MCHC (RBC) [Mass/Vol] 33.6 g/dL Normal 29.9-35.2 [facility] Comment on above: Performed By: #### U DINA, LIPID, TSH, BNP, CMP, T7 #### [facility] [address] [place] [address] Dr. Suzie Brooks MCV (RBC) [Entitic vol] 85.0 fL Normal 80.0-94.0 [facility] Comment on above: Performed By: #### U DINA, LIPID, TSH, BNP, CMP, T7 #### [facility] [address] [place] [address] Dr. Suzie Brooks MONO # 0.8 103/ul Normal 0.3-0.8 [facility] Comment on above: Performed By: #### U DINA, LIPID, TSH, BNP, CMP, T7 #### [facility] [address] [place] [address] Dr. Suzie Brooks Monocytes/100 WBC (Bld) 7.2 % Normal 1.7-12.0 [facility] Comment on above: Performed By: #### U DINA, LIPID, TSH, BNP, CMP, T7 #### [facility] [address] [place] [address] Dr. Suzie Brooks NEUT # 6.7 103/ul Critically high 1.4-6.5 [facility] Comment on above: Performed By: #### U DINA, LIPID, TSH, BNP, CMP, T7 #### [facility] [address] [place] [address] Dr. Suzie Brooks Neutrophils/100 WBC (Bld) 60.5 % Normal 43.0-75.0 [facility] Comment on above: Performed By: #### U DINA, LIPID, TSH, BNP, CMP, T7 #### [facility] [address] [place] [address] Dr. Suzie Brooks Platelet mean volume (Bld) [Entitic vol] 9.6 fL Normal 9.5-13.5 [facility] Comment on above: Performed By: #### U DINA, LIPID, TSH, BNP, CMP, T7 #### [facility] [address] [place] [address] Dr. Suzie Brooks PLT 266 103/ul Normal 150-450 [facility] Comment on above: Performed By: #### U DINA, LIPID, TSH, BNP, CMP, T7 #### [facility] [address] [place] [address] Dr. Suzie Brooks RBC 4.94 106/ul Normal 4.70-6.10 [facility] Comment on above: Performed By: #### U DINA, LIPID, TSH, BNP, CMP, T7 #### [facility] [address] [address] [address] Suzie Brooks WBC 11.1 103/ul Critically high 4.0-11.0 [facility] Comment on above: Performed By: #### U DINA, LIPID, TSH, BNP, CMP, T7 #### [facility] [address] [address] [address] Suzie Brooks PROF 14(COMP METB)on 022 Albumin [Mass/Vol] 3.2 g/dL Critically low 3.4-5.0 [facility] Comment on above: Performed By: #### C VDTBH #### [facility] [address] [place] [address] Dr. Suzie Brooks Albumin/Globulin [Mass ratio] 0.9 {ratio} Normal [facility] Comment on above: Performed By: #### C VDTBH #### [facility] [address] [place] [address] Dr. Suzie Brooks ALP [Catalytic activity/Vol] 60 U/L Normal 46-116 [facility] Comment on above: Performed By: #### C VDTBH #### [facility] [address] [place] [address] Dr. Suzie Brooks ALT [Catalytic activity/Vol] 27 U/L Normal 16-63 [facility] Comment on above: Performed By: #### C VDTBH #### [facility] [address] [place] [address] Dr. Suzie Brooks Anion gap [Moles/Vol] 10.4 mmol/L Normal [facility] Comment on above: Performed By: #### C VDTBH #### [facility] [address] [place] [address] Dr. Suzie Brooks AST [Catalytic activity/Vol] 23 U/L Normal 15-37 [facility] Comment on above: Performed By: #### C VDTBH #### [facility] [address] [place] [address] Dr. Suzie Brooks Bilirubin [Mass/Vol] 0.4 mg/dL Normal 0.2-1.0 [facility] Comment on above: Performed By: #### C VDTBH #### [facility] [address] [address] [address] Suzie Brooks Calcium [Mass/Vol] 8.4 mg/dL Critically low 8.5-10.1 [facility] Comment on above: Performed By: #### C VDTBH #### [facility] [address] [place] [address] Dr. Suzie Brooks Chloride [Moles/Vol] 104 mmol/L Normal 98-107 [facility] Comment on above: Performed By: #### C VDTBH #### [facility] [address] [address] [address] Suzie Brooks CO2 [Moles/Vol] 26.1 mmol/L Normal 21.0-32.0 [facility] Comment on above: Performed By: #### C VDTBH #### [facility] [address] [place] [address] Dr. Suzie Brooks Creatinine [Mass/Vol] 0.90 mg/dL Normal 0.70-1.30 [facility] Comment on above: Performed By: #### C VDTBH #### [facility] [address] [place] [address] Dr. Suzie Brooks EGFR-AF UKRAINIAN >60 Normal >=60 [facility] Comment on above: Performed By: #### C VDTBH #### [facility] [address] [place] [address] Dr. Suzie Brooks EGFR-NON AF UKRAINIAN >60 Normal >=60 [facility] Comment on above: Performed By: #### C VDTBH #### [facility] [address] [place] [address] Dr. Suzie Brooks Globulin (S) [Mass/Vol] 3.4 g/dL Normal [facility] Comment on above: Performed By: #### C VDTBH #### [facility] [address] [place] [address] Dr. Suzie Brooks Glucose [Mass/Vol] 111 mg/dL Critically high 74-106 [facility] Comment on above: Performed By: #### C VDTBH #### [facility] [address] [address] [address] Suzie Brooks Potassium [Moles/Vol] 3.5 mmol/L Normal 3.5-5.1 [facility] Comment on above: Performed By: #### C VDTBH #### [facility] [address] [place] [address] Dr. Suzie Brooks Protein [Mass/Vol] 6.6 g/dL Normal 6.4-8.[address] [facility] Comment on above: Performed By: #### C VDTBH #### [facility] [address] [place] [address] Dr. Suzie Brooks Sodium [Moles/Vol] 137 mmol/L Normal 136-[address] [facility] Comment on above: Performed By: #### C VDTBH #### [facility] [address] [place] [address] Dr. Suzie Brooks Urea nitrogen [Mass/Vol] 13.0 mg/dL Normal 7.0-18.0 [facility] Comment on above: Performed By: #### C VDTBH #### [facility] [address] [place] [address] Dr. Suzie Brooks Urea nitrogen/Creatinine [Mass ratio] 14.4 mg/mg Normal [facility] Comment on above: Performed By: #### C VDTBH #### [facility] [address] [place] [address] Dr. Suzie Brooks BNPon 07-26-2022 Natriuretic peptide B (Bld) [Mass/Vol] 118.0 pg/mL Normal <=900.0 [facility] Comment on above: Performed By: #### U DINA, LIPID, TSH, BNP, CMP, T7 #### [facility] [address] [place] [address] Dr. uSzie rBooks CARDIAC MJ 3-6on 2 CK [Catalytic activity/Vol] 240 U/L Normal 39-308 [facility] Comment on above: Performed By: #### U DINA, LIPID, TSH, BNP, CMP, T7 #### [facility] [address] [place], [place] [id number] Dr. Suzie Brooks CK.MB [Mass/Vol] 3.43 ng/mL Normal <=3.60 [facility] Comment on above: Performed By: #### U DINA, LIPID, TSH, BNP, CMP, T7 #### [facility] [address] [address] [address] Suzie Brooks HSTROP 8.6 pg/mL Normal 4.0-76.1 [facility] Comment on above: Result Comment: CUT- OFF POINTS HAVE BEEN ESTABLISHED BASED ON THE FOURTH UNIVERSAL DEFINITIONS OF MYOCARDIAL INFARCTION. THE UPPER REFERENCE LIMIT (URL) OF TROPONIN, DEFINED THE 99TH PERCENTILE OF cTnI DISTRIBUTION IN A REFERENCE POPULATION, HAS BEEN CONFIRMED THE DECISION THRESHOLD FOR SC DIAGNOSIS. Performed By: #### U DINA, LIPID, TSH, BNP, CMP, T7 #### [facility] [address] [place] [address] Dr. Suzie Brooks CK [Catalytic activity/Vol] 239 U/L Normal 39-308 [facility] Comment on above: Performed By: #### M AG24 #### [facility] [address] [place] [address] Dr. Suzie Brooks CK.MB [Mass/Vol] 2.93 ng/mL Normal <=3.60 [facility] Comment on above: Performed By: #### M AG24 #### [facility] [address] [place] [address] Dr. Suzie Brooks HSTROP 10.4 pg/mL Normal 4.0-76.1 [facility] Comment on above: Result Comment: CUT- OFF POINTS HAVE BEEN ESTABLISHED BASED ON THE FOURTH UNIVERSAL DEFINITIONS OF MYOCARDIAL INFARCTION. THE UPPER REFERENCE LIMIT (URL) OF TROPONIN, DEFINED THE 99TH PERCENTILE OF cTnI DISTRIBUTION IN A REFERENCE POPULATION, HAS BEEN CONFIRMED THE DECISION THRESHOLD FOR SC DIAGNOSIS. Performed By: #### M AG24 #### [facility] [address] [place] [address] Dr. Suzie Brooks CARDIAC MJ ADMITon 07-26-2 022 CK [Catalytic activity/Vol] 234 U/L Normal 39-308 [facility] Comment on above: Performed By: #### O X24HR #### [facility] [address] [place] [address] Dr. Suzie Brooks CK.MB [Mass/Vol] 3.37 ng/mL Normal <=3.60 [facility] Comment on above: Performed By: #### O X24HR #### [facility] [address] [place] [address] Dr. Suzie Brooks HSTROP 9.0 pg/mL Normal 4.0-76.1 [facility] Comment on above: Result Comment: CUT- OFF POINTS HAVE BEEN ESTABLISHED BASED ON THE FOURTH UNIVERSAL DEFINITIONS OF MYOCARDIAL INFARCTION. THE UPPER REFERENCE LIMIT (URL) OF TROPONIN, DEFINED THE 99TH PERCENTILE OF cTnI DISTRIBUTION IN A REFERENCE POPULATION, HAS BEEN CONFIRMED THE DECISION THRESHOLD FOR SC DIAGNOSIS. Performed By: #### O X24HR #### [facility] [address] [place] [address] Dr. Suzie Brooks EDIE 85 ng/mL Normal 16-96 [facility] Comment on above: Performed By: #### O X24HR #### [facility] [address] [place] [address] Dr. Suzie Brooks CBC AUTO DIFFon 07-26-2022 BASO # 0.1 103/ul Normal 0.0-0.1 [facility] Comment on above: Performed By: #### U DINA, LIPID, TSH, BNP, CMP, T7 #### [facility] [address] [place] [address] Dr. Suzie Brooks Basophils/100 WBC (Bld) 0.4 % Normal 0.2-2.0 [facility] Comment on above: Performed By: #### U DINA, LIPID, TSH, BNP, CMP, T7 #### [facility] [address] [place] [address] Dr. Suzie Brooks EO # 0.3 103/ul Normal 0.0-0.7 [facility] Comment on above: Performed By: #### U DINA, LIPID, TSH, BNP, CMP, T7 #### [facility] [address] [place] [address] Dr. Suzie Brooks Eosinophils/100 WBC (Bld) 2.5 % Normal 0.9-7.0 [facility] Comment on above: Performed By: #### U DINA, LIPID, TSH, BNP, CMP, T7 #### [facility] [address] [place] [address] Dr. Suzie Brooks Erythrocyte distribution width (RBC) [Ratio] 14.4 % Normal 11.0-15.0 [facility] Comment on above: Performed By: #### U DINA, LIPID, TSH, BNP, CMP, T7 #### [facility] [address] [place] [address] Dr. Suzie Brooks Hematocrit (Bld) [Volume fraction] 46.0 % Normal 42.0-54.0 [facility] Comment on above: Performed By: #### U DINA, LIPID, TSH, BNP, CMP, T7 #### [facility] [address] [place] [address] Dr. Suzie Brooks Hemoglobin (Bld) [Mass/Vol] 15.6 g/dL Normal 14.0-18.0 [facility] Comment on above: Performed By: #### U DINA, LIPID, TSH, BNP, CMP, T7 #### [facility] [address] [place] [address] Dr. Suzie Brooks IG # 0.07 10e3/ul Critically high 0.00-0.03 [facility] Comment on above: Performed By: #### U DINA, LIPID, TSH, BNP, CMP, T7 #### [facility] [address] [place] [address] Dr. Suzie Brooks IG % 0.6 % Critically high 0.0-0.5 [facility] Comment on above: Performed By: #### U DINA, LIPID, TSH, BNP, CMP, T7 #### [facility] [address] [place] [address] Dr. Suzie Brooks LYMPH # 2.9 103/ul Normal 1.2-3.8 [facility] Comment on above: Performed By: #### U DINA, LIPID, TSH, BNP, CMP, T7 #### [facility] [address] [place] [address] Dr. Suzie Brooks Lymphocytes/100 WBC (Bld) 24.2 % Normal 20.5-60.0 [facility] Comment on above: Performed By: #### U DINA, LIPID, TSH, BNP, CMP, T7 #### [facility] [address] [place] [address] Dr. Suzie Brooks MANUAL DIFF REQ NO Normal [facility] Comment on above: Performed By: #### U DINA, LIPID, TSH, BNP, CMP, T7 #### [facility] [address] [place] [address] Dr. Suzie Brooks MCH (RBC) [Entitic mass] 28.6 pg Normal 25.9-34.0 [facility] Comment on above: Performed By: #### U DINA, LIPID, TSH, BNP, CMP, T7 #### [facility] [address] [place] [address] Dr. Suzie Brooks MCHC (RBC) [Mass/Vol] 33.9 g/dL Normal 29.9-35.2 [facility] Comment on above: Performed By: #### U DINA, LIPID, TSH, BNP, CMP, T7 #### [facility] [address] [place] [address] Dr. Suzie Brooks MCV (RBC) [Entitic vol] 84.4 fL Normal 80.0-94.0 [facility] Comment on above: Performed By: #### U DINA, LIPID, TSH, BNP, CMP, T7 #### [facility] [address] [place] [address] Dr. Suzie Brooks MONO # 0.8 103/ul Normal 0.3-0.8 [facility] Comment on above: Performed By: #### U DINA, LIPID, TSH, BNP, CMP, T7 #### [facility] [address] [place] [address] Dr. Suzie Brooks Monocytes/100 WBC (Bld) 6.7 % Normal 1.7-12.0 [facility] Comment on above: Performed By: #### U DINA, LIPID, TSH, BNP, CMP, T7 #### [facility] [address] [place] [address] Dr. Suzie Brooks NEUT # 7.8 103/ul Critically high 1.4-6.5 [facility] Comment on above: Performed By: #### U DIAN, LIPID, TSH, BNP, CMP, T7 #### [facility] [address] [address] [address] Suzie Brooks Neutrophils/100 WBC (Bld) 65.6 % Normal 43.0-75.0 [facility] Comment on above: Performed By: #### U DINA, LIPID, TSH, BNP, CMP, T7 #### [facility] [address] [address] [address] Suzie Brooks Platelet mean volume (Bld) [Entitic vol] 9.7 fL Normal 9.5-13.5 [facility] Comment on above: Performed By: #### U DINA, LIPID, TSH, BNP, CMP, T7 #### [facility] [address] [address] [address] Suzie Brooks PLT 289 103/ul Normal 150-450 [facility] Comment on above: Performed By: #### U DINA, LIPID, TSH, BNP, CMP, T7 #### [facility] [address] [address] [address] Suzie Brooks RBC 5.45 106/ul Normal 4.70-6.10 [facility] Comment on above: Performed By: #### U DINA, LIPID, TSH, BNP, CMP, T7 #### [facility] [address] [address] [address] Suzie Brooks WBC 11.9 103/ul Critically high 4.0-11.0 [facility] Comment on above: Performed By: #### U DINA, LIPID, TSH, BNP, CMP, T7 #### [facility] [address] [place] [address] Dr. Suzie Brooks CTA CHEST WO W [...] BEHZAD CARRASQUILLO Date: 2022-07-26 11:59 Normal [facility] Covid-19 PCR (CVDTB)on 07-11 SARS-CoV-2 (COVID-19) RNA SUKHJINDER+probe Ql (Unsp spec) Not detected Normal NOT DETECTED [facility] Comment on above: Result Comment: When diagnostic [...] for this test is supported by the [place] of Health and Human Service's declaration that [...] DINA, LIPID, TSH, BNP, CMP, T7 #### [facility] [address] [address] [address] Suzie Brooks D-DIMERon 07-26-2022 D-DIMER 0.88 mg/L FEU Critically high <=0.[address] [facility] Comment on above: Performed By: #### C VDTBH #### [facility] [address] [place], [place] [address] Dr. Suzie rBooks D-DIMER COMMENTS SEE BELOW Normal [facility] Comment on above: Result Comment: Incr [...] hospitalization. Performed By: #### C VDTBH #### [facility] [address] [place] [address] [id number] [address] Suzie Brooks ECHOCARDIO M/2D COMPLETEon 1 09-26-2021 ECHOCARDIO M/2D COMPLETE Patient: TOM APARICIO Exam Date: 07/26/2022 : 1950 Gender:M Ordering : DR MARIELLE LERMA . Admission #: [id number] Family : Order #: [id number] CLICK HERE TO VIEW EXAM ECHOCARDIOGRAM REPORT [...] Rios M.D. on 07/26/2022 at 16:22 Normal [facility] PROF 14(COMP METB)on 022 Albumin [Mass/Vol] 3.6 g/dL Normal 3.4-5.0 [facility] Comment on above: Performed By: #### U DINA, LIPID, TSH, BNP, CMP, T7 #### [facility] [address] [address] [address] Suzie Brooks Albumin/Globulin [Mass ratio] 0.9 {ratio} Normal [facility] Comment on above: Performed By: #### U DINA, LIPID, TSH, BNP, CMP, T7 #### [facility] [address] [place] [address] Dr. Suzie Brooks ALP [Catalytic activity/Vol] 70 U/L Normal 46-116 [facility] Comment on above: Performed By: #### U DINA, LIPID, TSH, BNP, CMP, T7 #### [facility] [address] [place] [address] Dr. Suzie Brooks ALT [Catalytic activity/Vol] 30 U/L Normal 16-63 [facility] Comment on above: Performed By: #### U DINA, LIPID, TSH, BNP, CMP, T7 #### [facility] [address] [place] [address] Dr. Suzie Brooks Anion gap [Moles/Vol] 9.2 mmol/L Normal [facility] Comment on above: Performed By: #### U DINA, LIPID, TSH, BNP, CMP, T7 #### [facility] [address] [place] [address] Dr. Suzie Brooks AST [Catalytic activity/Vol] 29 U/L Normal 15-37 [facility] Comment on above: Performed By: #### U DINA, LIPID, TSH, BNP, CMP, T7 #### [facility] [address] [place] [address] Dr. Suzie Brooks Bilirubin [Mass/Vol] 0.5 mg/dL Normal 0.2-1.0 [facility] Comment on above: Performed By: #### U DINA, LIPID, TSH, BNP, CMP, T7 #### [facility] [address] [place] [address] Dr. Suzie Brooks Calcium [Mass/Vol] 8.8 mg/dL Normal 8.5-10.1 [facility] Comment on above: Performed By: #### U DINA, LIPID, TSH, BNP, CMP, T7 #### [facility] [address] [address] [address] Suzie Brooks Chloride [Moles/Vol] 102 mmol/L Normal 98-107 [facility] Comment on above: Performed By: #### U DINA, LIPID, TSH, BNP, CMP, T7 #### [facility] [address] [address] [address] Suzie Brooks CO2 [Moles/Vol] 27.2 mmol/L Normal 21.0-32.0 [facility] Comment on above: Performed By: #### U DINA, LIPID, TSH, BNP, CMP, T7 #### [facility] [address] [address] [address] Suzie Brooks Creatinine [Mass/Vol] 0.99 mg/dL Normal 0.70-1.30 [facility] Comment on above: Performed By: #### U DINA, LIPID, TSH, BNP, CMP, T7 #### [facility] [address] [place] [address] Dr. Suzie Brooks EGFR-AF UKRAINIAN >60 Normal >=60 [facility] Comment on above: Performed By: #### U DINA, LIPID, TSH, BNP, CMP, T7 #### [facility] [address] [place] [address] Dr. Suzie Brooks EGFR-NON AF UKRAINIAN >60 Normal >=60 [facility] Comment on above: Performed By: #### U DINA, LIPID, TSH, BNP, CMP, T7 #### [facility] [address] [address] [address] Suzie Brooks Globulin (S) [Mass/Vol] 3.9 g/dL Normal [facility] Comment on above: Performed By: #### U DINA, LIPID, TSH, BNP, CMP, T7 #### [facility] [address] [place] [address] Dr. Suzie Brooks Glucose [Mass/Vol] 125 mg/dL Critically high 74-106 [facility] Comment on above: Performed By: #### U DINA, LIPID, TSH, BNP, CMP, T7 #### [facility] [address] [address] [address] Suzie Brooks Potassium [Moles/Vol] 3.4 mmol/L Critically low 3.5-5.1 [facility] Comment on above: Performed By: #### U DINA, LIPID, TSH, BNP, CMP, T7 #### [facility] [address] [place] [address] Dr. Suzie Brooks Protein [Mass/Vol] 7.5 g/dL Normal 6.4-8.2 [facility] Comment on above: Performed By: #### U DINA, LIPID, TSH, BNP, CMP, T7 #### [facility] [address] [place] [address] Dr. Suzie Brooks Sodium [Moles/Vol] 135 mmol/L Critically low 136-145 [facility] Comment on above: Performed By: #### U DINA, LIPID, TSH, BNP, CMP, T7 #### [facility] [address] [place] [address] Dr. Suzie Brooks Urea nitrogen [Mass/Vol] 15.0 mg/dL Normal 7.0-18.0 [facility] Comment on above: Performed By: #### U DINA, LIPID, TSH, BNP, CMP, T7 #### [facility] [address] [place] [address] Dr. Suzie Brooks Urea nitrogen/Creatinine [Mass ratio] 15.2 mg/mg Normal [facility] Comment on above: Performed By: #### U DINA, LIPID, TSH, BNP, CMP, T7 #### [facility] [address] [place] [address] Dr. Suzie Brooks PROTIMEon 07-26-2022 INR Coag (PPP) [Relative time] 0.95 {INR} Normal [facility] Comment on above: Performed By: #### C VDTBH #### [facility] [address] [place] [address] Dr. Suzie Brooks INR GUIDELINES SEE BELOW Normal [facility] Comment on above: Result Comment: TOMMY RED INR: 2.0 - 3.0 CONDITIONS NOT LISTED BELOW 2.5 - 3.5 FOR PROSTHETIC HEART VALVE REPLACEMENT 2.5 - 3.5 RECURRENT THROMBOSIS Performed By: #### C VDTBH #### [facility] [address] [address] [address] Suzie Brooks PT Coag (PPP) [Time] 10.3 s Normal 9.0-11.6 [facility] Comment on above: Performed By: #### C VDTBH #### [facility] [address] [place] [address] Dr. Suzie Brooks PTTon 07-26-2022 aPTT Coag (Bld) [Time] 28.2 s Normal 22.3-36.2 [facility] Comment on above: Performed By: #### C VDTBH #### [facility] [address] [place] [address] Dr. Suzie Brooks TSHon 07-26-2022 TSH 2.000 uIU/mL Normal 0.358-3.740 [facility] Comment on above: Performed By: #### O X24HR #### [facility] [address] [place] [address] Dr. Suzie Brooks XR CHEST 1 Von [...] by: BEHZAD CARRASQUILLO Date: 2022-07-26 10:51 Normal [facility] Reminderson 07-23-2022 Reminders - From: Aliza Recinos To: [place] - Recalls Zeng; Sent: 05/30/2022 15:57:23 EDT Show up: 05/30/2022 15:57:00 EDT Subject: IVP Due Date/Time: 06/19/2022 15:57:00 EST Reminder/Recall Pt needs IVP prior in June. Pt uses [facility] at [facility] to call and scheduled pt for the 7, 8, or 9 scheduled on 07/18/2022 at 10:30 completed and in pt's chart he has a f/u in august Normal [facility] Lab Reportson 07-21-2022 Lab Reports [id number]:12 7 Normal [facility] RAD - MISCon 07-21-2022 RAD - MISC [id number]#[id number]:12 7 Normal [facility] CREATININEon 07-18-2022 Creatinine [Mass/Vol] 0.93 mg/dL Normal 0.70-1.30 [facility] Comment on above: Performed By: #### U DINA, LIPID, TSH, BNP, CMP, T7 #### [facility] [address] [address] [address] Suzie Brooks EGFR-AF UKRAINIAN >60 Normal >=60 [facility] Comment on above: Performed By: #### U DINA, LIPID, TSH, BNP, CMP, T7 #### [facility] [address] [address] [address] Suzie Brooks EGFR-NON AF UKRAINIAN >60 Normal >=60 [facility] Comment on above: Performed By: #### U DINA, LIPID, TSH, BNP, CMP, T7 #### [facility] [address] [address] [address] Suzie Brooks XR IVPon 07-18-2022 XR IVP EXAMINATION: XR IVP HISTORY: Kidney stone COMPARISON: XR KUB 11/21/2021, CT abdomen pelvis 02/16/2022 TECHNIQUE: After obtaining patient consent a slip tender image was obtained followed by injection of [...] BEHZAD CARRASQUILLO Date: 2022-07-18 11:50 Normal [facility] INSULINon 05-16-2022 Insulin 59.0 uIU/mL Critically high 2.6-24.9 [facility] Comment on above: Performed By: #### U DINA, LIPID, TSH, BNP, CMP, T7 #### [facility] [address] [place] [address] Dr. Suzie Brooks BNPon 05-15-2022 Natriuretic peptide B (Bld) [Mass/Vol] 81.0 pg/mL Normal <=900.0 [facility] Comment on above: Performed By: #### U DINA, LIPID, TSH, BNP, CMP, T7 #### [facility] [address] [place] [address] Dr. Suzie Brooks CBC AUTO DIFFon 05-15-2022 BASO # 0.1 103/ul Normal 0.0-0.1 [facility] Comment on above: Performed By: #### C VDTBH #### [facility] [address] [place] [address] Dr. Suzie Brooks Basophils/100 WBC (Bld) 0.6 % Normal 0.2-2.0 [facility] Comment on above: Performed By: #### C VDTBH #### [facility] [address] [place] [address] Dr. Suzie Brooks EO # 0.3 103/ul Normal 0.0-0.7 [facility] Comment on above: Performed By: #### C VDTBH #### [facility] [address] [place] [address] Dr. Suzie Brooks Eosinophils/100 WBC (Bld) 2.9 % Normal 0.9-7.0 [facility] Comment on above: Performed By: #### C VDTBH #### [facility] [address] [place] [address] Dr. Suzie Brooks Erythrocyte distribution width (RBC) [Ratio] 14.1 % Normal 11.0-15.0 [facility] Comment on above: Performed By: #### C VDTBH #### [facility] [address] [place] [address] Dr. Suzie Brooks Hematocrit (Bld) [Volume fraction] 46.7 % Normal 42.0-54.0 [facility] Comment on above: Performed By: #### C VDTBH #### [facility] [address] [place] [address] Dr. Suzie Brooks Hemoglobin (Bld) [Mass/Vol] 15.4 g/dL Normal 14.0-18.0 [facility] Comment on above: Performed By: #### C VDTBH #### [facility] [address] [place] [address] Dr. Suzie Brooks IG # 0.03 10e3/ul Normal 0.00-0.03 [facility] Comment on above: Performed By: #### C VDTBH #### [facility] [address] [place] [address] Dr. Suzie Brooks IG % 0.3 % Normal 0.0-0.5 [facility] Comment on above: Performed By: #### C VDTBH #### [facility] [address] [place] [address] Dr. Suzie Brooks LYMPH # 2.6 103/ul Normal 1.2-3.8 [facility] Comment on above: Performed By: #### C VDTBH #### [facility] [address] [place] [address] Dr. Suzie Brooks Lymphocytes/100 WBC (Bld) 25.1 % Normal 20.5-60.0 [facility] Comment on above: Performed By: #### C VDTBH #### [facility] [address] [place] [address] Dr. Suzie Brooks MANUAL DIFF REQ NO Normal [facility] Comment on above: Performed By: #### C VDTBH #### [facility] [address] [place] [address] Dr. Suzie Brooks MCH (RBC) [Entitic mass] 28.6 pg Normal 25.9-34.0 [facility] Comment on above: Performed By: #### C VDTBH #### [facility] [address] [place] [address] Dr. Suzie Brooks MCHC (RBC) [Mass/Vol] 33.0 g/dL Normal 29.9-35.2 [facility] Comment on above: Performed By: #### C VDTBH #### [facility] [address] [place] [address] Dr. Suzie Brooks MCV (RBC) [Entitic vol] 86.8 fL Normal 80.0-94.0 [facility] Comment on above: Performed By: #### C VDTBH #### [facility] [address] [place] [address] Dr. Suzie Brooks MONO # 0.7 103/ul Normal 0.3-0.8 [facility] Comment on above: Performed By: #### C VDTBH #### [facility] [address] [place] [address] Dr. Suzie Brooks Monocytes/100 WBC (Bld) 6.8 % Normal 1.7-12.0 [facility] Comment on above: Performed By: #### C VDTBH #### [facility] [address] [place] [address] Dr. Suzie Brooks NEUT # 6.5 103/ul Normal 1.4-6.5 [facility] Comment on above: Performed By: #### C VDTBH #### [facility] [address] [place] [address] Dr. Suzie Brooks Neutrophils/100 WBC (Bld) 64.3 % Normal 43.0-75.0 [facility] Comment on above: Performed By: #### C VDTBH #### [facility] [address] [address] [address] Suzie Brooks Platelet mean volume (Bld) [Entitic vol] 9.5 fL Normal 9.5-13.5 [facility] Comment on above: Performed By: #### C VDTBH #### [facility] [address] [place] [address] Dr. Suzie Brooks PLT 273 103/ul Normal 150-450 [facility] Comment on above: Performed By: #### C VDTBH #### [facility] [address] [place] [address] Dr. Suzie Brooks RBC 5.38 106/ul Normal 4.70-6.10 [facility] Comment on above: Performed By: #### C VDTBH #### [facility] [address] [place] [address] Dr. Suzie Brooks WBC 10.2 103/ul Normal 4.0-11.0 [facility] Comment on above: Performed By: #### C VDTBH #### [facility] [address] [place] [address] Dr. Suzie Brooks FREE THYROXINE INDEX T7on FTI 2.23 Normal 1.30-4.50 [facility] Comment on above: Performed By: #### U DINA, LIPID, TSH, BNP, CMP, T7 #### [facility] [address] [place] [address] Dr. Suzie Brooks T3U 36.0 % Normal 33.0-40.0 [facility] Comment on above: Performed By: #### U DINA, LIPID, TSH, BNP, CMP, T7 #### [facility] [address] [place] [address] Dr. Suzie Brooks T4 [Mass/Vol] 6.20 ug/dL Normal 4.50-12.10 [facility] Comment on above: Performed By: #### U DINA, LIPID, TSH, BNP, CMP, T7 #### [facility] [address] [place] [address] Dr. Suzie Brooks GLYCOHEMOGLOBIN A1Con 2021 ADA RECOMMENDATION SEE BELOW Normal [facility] Comment on above: Result Comment: ADA RECOMMENDED LIMIT 4.0 - 6.0 ADA THERAPEUTIC TARGET < 7.0 ACTION SUGGESTED > 7.0 Performed By: #### U DINA, LIPID, TSH, BNP, CMP, T7 #### [facility] [address] [address] [address] Suzie Brooks Glucose [Mass/Vol] 111 mg/dL Normal [facility] Comment on above: Performed By: #### U DINA, LIPID, TSH, BNP, CMP, T7 #### [facility] [address] [address] [address] Suzie Brooks HbA1c (Bld) [Mass fraction] 5.5 % Normal 4.5-6.2 [facility] Comment on above: Performed By: #### U DINA, LIPID, TSH, BNP, CMP, T7 #### [facility] [address] [address] [address] Suzie Brooks LIPID PROFILEon 05-15-2022 CHOL-HDL RATIO NORM SEE BELOW Normal [facility] Comment on above: Result Comment: 3.3 - 4.4 LOW RISK 4.4 - 7.1 AVERAGE RISK 7.1 - 11.0 MODERATE RISK >11.0 HIGH RISK Performed By: #### U DINA, LIPID, TSH, BNP, CMP, T7 #### [facility] [address] [address] [address] Suzie Brooks Cholesterol [Mass/Vol] 136 mg/dL Normal <=200 [facility] Comment on above: Performed By: #### U DINA, LIPID, TSH, BNP, CMP, T7 #### [facility] [address] [address] [address] Suzie Brooks Cholesterol in HDL [Mass/Vol] 34 mg/dL Critically low 40-60 [facility] Comment on above: Performed By: #### U DINA, LIPID, TSH, BNP, CMP, T7 #### [facility] [address] [address] [address] Suzie Brooks Cholesterol in LDL [Mass/Vol] 49.8 mg/dL Normal [facility] Comment on above: Performed By: #### U DINA, LIPID, TSH, BNP, CMP, T7 #### [facility] [address] [address] [address] Suzie Brooks Cholesterol.total/Ch olesterol in HDL [Mass ratio] 4.0 {ratio} Normal [facility] Comment on above: Performed By: #### U DINA, LIPID, TSH, BNP, CMP, T7 #### [facility] [address] [address] [address] Suzie Brooks HDL NORMAL > or = 60 mg/dl - LO W CARDIOVASCULAR RISK <40 mg/dl - HIGH CARDIOVASCULAR RISK Normal [facility] Comment on above: Performed By: #### U DINA, LIPID, TSH, BNP, CMP, T7 #### [facility] [address] [address] [address] Suzie Brooks LDL CALC NORMAL SEE BELOW Normal [facility] Comment on above: Result Comment: <100 mg/dl OPTIMAL 100 - 129 mg/dl NEAR OR ABOVE OPTIMAL 130 - 159 mg/dl BORDERLINE HIGH 160 - 189 mg/dl HIGH >190 mg/dl VERY HIGH Performed By: #### U DINA, LIPID, TSH, BNP, CMP, T7 #### [facility] [address] [address] [address] Suzie Brooks Triglyceride [Mass/Vol] 261 mg/dL Critically high <=150 [facility] Comment on above: Performed By: #### U DINA, LIPID, TSH, BNP, CMP, T7 #### [facility] [address] [address] [address] Suzie Brooks VLDL CALC 52.2 mg/dL Normal [facility] Comment on above: Performed By: #### U DINA, LIPID, TSH, BNP, CMP, T7 #### [facility] [id number] Suzie Brooks PROF 14(COMP METB)on 022 Albumin [Mass/Vol] 3.6 g/dL Normal 3.4-5.0 [facility] Comment on above: Performed By: #### U DINA, LIPID, TSH, BNP, CMP, T7 #### [facility] [address] [address] [address] Suzie Brooks Albumin/Globulin [Mass ratio] 0.9 {ratio} Normal [facility] Comment on above: Performed By: #### U DINA, LIPID, TSH, BNP, CMP, T7 #### [facility] [address] [place] [address] Dr. Suzie Brooks ALP [Catalytic activity/Vol] 60 U/L Normal 46-116 [facility] Comment on above: Performed By: #### U DINA, LIPID, TSH, BNP, CMP, T7 #### [facility] [address] [place] [address] Dr. Suzie Brooks ALT [Catalytic activity/Vol] 36 U/L Normal 16-63 [facility] Comment on above: Performed By: #### U DINA, LIPID, TSH, BNP, CMP, T7 #### [facility] [address] [place] [address] Dr. Suzie Brooks Anion gap [Moles/Vol] 11.7 mmol/L Normal [facility] Comment on above: Performed By: #### U DINA, LIPID, TSH, BNP, CMP, T7 #### [facility] [address] [place] [address] Dr. Suzie Brooks AST [Catalytic activity/Vol] 28 U/L Normal 15-37 [facility] Comment on above: Performed By: #### U DINA, LIPID, TSH, BNP, CMP, T7 #### [facility] [address] [place] [address] Dr. Suzie Brooks Bilirubin [Mass/Vol] 0.6 mg/dL Normal 0.2-1.0 [facility] Comment on above: Performed By: #### U DINA, LIPID, TSH, BNP, CMP, T7 #### [facility] [address] [place] [address] Dr. Suzie Brooks Calcium [Mass/Vol] 8.8 mg/dL Normal 8.5-10.1 [facility] Comment on above: Performed By: #### U DINA, LIPID, TSH, BNP, CMP, T7 #### [facility] [address] [address] [address] Suzie Brooks Chloride [Moles/Vol] 102 mmol/L Normal 98-107 [facility] Comment on above: Performed By: #### U DINA, LIPID, TSH, BNP, CMP, T7 #### [facility] [address] [address] [address] Suzie Brooks CO2 [Moles/Vol] 27.9 mmol/L Normal 21.0-32.0 [facility] Comment on above: Performed By: #### U DINA, LIPID, TSH, BNP, CMP, T7 #### [facility] [address] [address] [address] Suzie Brooks Creatinine [Mass/Vol] 0.98 mg/dL Normal 0.70-1.30 [facility] Comment on above: Performed By: #### U DINA, LIPID, TSH, BNP, CMP, T7 #### [facility] [address] [place] [address] Dr. Suzie Brooks EGFR-AF UKRAINIAN >60 Normal >=60 [facility] Comment on above: Performed By: #### U DINA, LIPID, TSH, BNP, CMP, T7 #### [facility] [address] [place] [address] Dr. Suzie Brooks EGFR-NON AF UKRAINIAN >60 Normal >=60 [facility] Comment on above: Performed By: #### U DINA, LIPID, TSH, BNP, CMP, T7 #### [facility] [address] [place] [address] Dr. Suzie Brooks Globulin (S) [Mass/Vol] 3.8 g/dL Normal [facility] Comment on above: Performed By: #### U DINA, LIPID, TSH, BNP, CMP, T7 #### [facility] [address] [address] [address] Suzie Brooks Glucose [Mass/Vol] 107 mg/dL Critically high 74-106 T [facility] Comment on above: Performed By: #### U DINA, LIPID, TSH, BNP, CMP, T7 #### [facility] [address] [address] [address] Suzie Brooks Potassium [Moles/Vol] 3.6 mmol/L Normal 3.5-5.1 [facility] Comment on above: Performed By: #### U DINA, LIPID, TSH, BNP, CMP, T7 #### [facility] [address] [address] [address] Suzie Brooks Protein [Mass/Vol] 7.4 g/dL Normal 6.4-8.[address] [facility] Comment on above: Performed By: #### U DINA, LIPID, TSH, BNP, CMP, T7 #### [facility] [address] [place] [address] Dr. Suzie Brooks Sodium [Moles/Vol] 138 mmol/L Normal 136-[address] [facility] Comment on above: Performed By: #### U IDNA, LIPID, TSH, BNP, CMP, T7 #### [facility] [address] [place] [address] Dr. Suzie Brooks Urea nitrogen [Mass/Vol] 12.0 mg/dL Normal 7.0-18.0 [facility] Comment on above: Performed By: #### U DINA, LIPID, TSH, BNP, CMP, T7 #### [facility] [address] [place] [address] Dr. Suzie Brooks Urea nitrogen/Creatinine [Mass ratio] 12.2 mg/mg Normal [facility] Comment on above: Performed By: #### U DINA, LIPID, TSH, BNP, CMP, T7 #### [facility] [address] [place] [address] Dr. Suzie Brooks TSHon 05-15-2022 TSH 2.356 uIU/mL Normal 0.358-3.740 [facility] Comment on above: Performed By: #### U DINA, LIPID, TSH, BNP, CMP, T7 #### [facility] [address] [place] [address] Dr. Suzie Brooks URIC ACID SERUMon 05-15-2022 Urate [Mass/Vol] 5.2 mg/dL Normal 3.5-7.2 [facility] Comment on above: Performed By: #### U DINA, LIPID, TSH, BNP, CMP, T7 #### [facility] [address] [address] [address] Suzie Brooks CALCULI, URINARYon 2 2,8 Dihydroxyadenine Normal [facility] Comment on above: Performed By: #### U DINA, LIPID, TSH, BNP, CMP, T7 #### [facility] [address] [address] [address] Suzie Brooks Ammonium Acid Urate Normal [facility] Comment on above: Performed By: #### U DINA, LIPID, TSH, BNP, CMP, T7 #### [facility] [address] [address] [address] Suzie Brooks Bilirubin Ql (U) Normal [facility] Comment on above: Performed By: #### U DINA, LIPID, TSH, BNP, CMP, T7 #### [facility] [address] [address] [address] Suzie Brooks Ca Oxalate Dihydrate Normal [facility] Comment on above: Performed By: #### U DINA, LIPID, TSH, BNP, CMP, T7 #### [facility] [address] [address] [address] Suzie Brooks CaHPO4 (Brushite) [facility] Comment on above: Performed By: #### U DINA, LIPID, TSH, BNP, CMP, T7 #### [facility] [address] [address] [address] Suzie Brooks Calcium Bilirubinate Normal [facility] Comment on above: Performed By: #### U DINA, LIPID, TSH, BNP, CMP, T7 #### [facility] [address] [address] [address] Suzie Brooks Calcium Carbonate Normal [facility] Comment on above: Performed By: #### U DINA, LIPID, TSH, BNP, CMP, T7 #### [facility] [address] [address] [address] Suzie Brooks Calcium Oxalate Monohydrate 70 % Normal [facility] Comment on above: Performed By: #### U DINA, LIPID, TSH, BNP, CMP, T7 #### [facility] [address] [address] [address] Suzie Brooks Calcium Palmitate Normal [facility] Comment on above: Performed By: #### U DIAN, LIPID, TSH, BNP, CMP, T7 #### [facility] [address] [address] [address] Suzie Brooks Calcium Phosphate Normal [facility] Comment on above: Performed By: #### U DINA, LIPID, TSH, BNP, CMP, T7 #### [facility] [address] [address] [address] Suzie Brooks Calcium Stearate Normal [facility] Comment on above: Performed By: #### U DINA, LIPID, TSH, BNP, CMP, T7 #### [facility] [address] [address] [address] Suzie Brooks Carbonate Apatite Normal [facility] Comment on above: Performed By: #### U DINA, LIPID, TSH, BNP, CMP, T7 #### [facility] [address] [address] [address] Suzie Brooks Cellular Material Normal [facility] Comment on above: Performed By: #### U DINA, LIPID, TSH, BNP, CMP, T7 #### [facility] [address] [address] [address] Suzie Brooks Cholesterol [facility] Comment on above: Performed By: #### U DINA, LIPID, TSH, BNP, CMP, T7 #### [facility] [address] [address] [address] Suzie Brooks Color (U) Brown Normal [facility] Comment on above: Performed By: #### U DINA, LIPID, TSH, BNP, CMP, T7 #### [facility] [address] [address] [address] Suzie Brooks Comment [facility] Comment on above: Performed By: #### U DINA, LIPID, TSH, BNP, CMP, T7 #### [facility] [address] [address] [address] Suzie Brooks Comment Comment Normal [facility] Comment on above: Result Comment: Calc ulus received in liquid. Wet calculi must be dried before analysis, which delays reporting of results. Leaving calculi in liquid (such as water, saline, blood, urine) may lead to changes in composition. Performed By: #### U DINA, LIPID, TSH, BNP, CMP, T7 #### [facility] [address] [address] [address] Suzie Brooks Comment: Comment Normal [facility] Comment on above: Result Comment: Fantasma baez questions regarding Calculi Analysis contact [facility] at: [phone]. Performed By: #### U DINA, LIPID, TSH, BNP, CMP, T7 #### [facility] [address] [address] [address] Suzie Brooks Composition Comment [facility] Comment on above: Result Comment: Perc entage (Represents the % composition) Performed By: #### U DINA, LIPID, TSH, BNP, CMP, T7 #### [facility] [address] [address] [address] Suzie Brooks Cystine Normal [facility] Comment on above: Performed By: #### U DINA, LIPID, TSH, BNP, CMP, T7 #### [facility] [address] [address] [address] Suzie Brooks Disclaimer: Comment Normal [facility] Comment on above: Result Comment: This test was developed and its performance characteristics determined by [facility]. It has not been cleared or approved by the Food and Drug Administration. Performed By: #### U DINA, LIPID, TSH, BNP, CMP, T7 #### [facility] [address] [address] [address] Suzie Brooks Dried Blood Normal [facility] Comment on above: Performed By: #### U DINA, LIPID, TSH, BNP, CMP, T7 #### [facility] [address] [address] [address] Suzie Brooks Drug or Metabolite Normal [facility] Comment on above: Performed By: #### U DINA, LIPID, TSH, BNP, CMP, T7 #### [facility] [address] [address] [address] Suzie Brooks Hydroxyapatite Normal [facility] Comment on above: Performed By: #### U DINA, LIPID, TSH, BNP, CMP, T7 #### [facility] [address] [address] [address] Suzie Brooks Mg NH4 PO4 (Struvite) [facility] Comment on above: Performed By: #### U DINA, LIPID, TSH, BNP, CMP, T7 #### [facility] [address] [address] [address] Suzie Brooks MgHPO4 (Newberyite) Normal [facility] Comment on above: Performed By: #### U DINA, LIPID, TSH, BNP, CMP, T7 #### [facility] [address] [address] [address] Suzie Brooks Other component(s) Normal [facility] Comment on above: Performed By: #### U DINA, LIPID, TSH, BNP, CMP, T7 #### [facility] [address] [address] [address] Suzie Brooks PDF . Normal [facility] Comment on above: Performed By: #### U DINA, LIPID, TSH, BNP, CMP, T7 #### [facility] [address] [address] [address] Suzie Brooks Photo Comment [facility] Comment on above: Result Comment: Phot ograph will follow under a separate cover Performed By: #### U DNIA, LIPID, TSH, BNP, CMP, T7 #### [facility] [address] [address] [address] Suzie Brooks Please note: Comment [facility] Comment on above: Result Comment: Calc shamika report will follow via computer, mail or ic engineer delivery. Performed By: #### U DINA, LIPID, TSH, BNP, CMP, T7 #### [facility] [address] [address] [address] Suzie Brooks Size 6x4 [facility] Comment on above: Result Comment: Mult iple pieces received. Dimensions of the largest piece reported. Performed By: #### U DINA, LIPID, TSH, BNP, CMP, T7 #### [facility] [address] [address] [address] Suzie Brooks Sodium Acid Urate Normal [facility] Comment on above: Performed By: #### U DINA, LIPID, TSH, BNP, CMP, T7 #### [facility] [address] [address] [address] Suzie Brooks Source Comment [facility] Comment on above: Result Comment: Not provided Performed By: #### U DINA, LIPID, TSH, BNP, CMP, T7 #### [facility] [address] [address] [address] Suzie Brooks Triamterene [facility] Comment on above: Performed By: #### U DINA, LIPID, TSH, BNP, CMP, T7 #### [facility] [address] [address] [address] Suzie Brooks Uric Acid 30 % [facility] Comment on above: Performed By: #### U DINA, LIPID, TSH, BNP, CMP, T7 #### [facility] [address] [address] [address] Suzie Brooks Uric Acid Dihydrate Normal [facility] Comment on above: Performed By: #### U DINA, LIPID, TSH, BNP, CMP, T7 #### [facility] [address] [address] [address] Suzie Brooks Weight 99 mg Normal [facility] Comment on above: Performed By: #### U DINA, LIPID, TSH, BNP, CMP, T7 #### [facility] [address] [address] [address] Suzie Brooks Xanthine [facility] Comment on above: Performed By: #### U DINA, LIPID, TSH, BNP, CMP, T7 #### [facility] [address] [address] [address] Suzie Brooks CBC AUTO DIFFon 02-18-2022 BASO # 0.0 103/ul Normal 0.0-0.1 [facility] Comment on above: Performed By: #### U DINA, LIPID, TSH, BNP, CMP, T7 #### [facility] [address] [address] [address] Suzie Brooks Basophils/100 WBC (Bld) 0.3 % Normal 0.2-2.0 [facility] Comment on above: Performed By: #### U DINA, LIPID, TSH, BNP, CMP, T7 #### [facility] [address] [place] [address] Dr. Suzie Brooks EO # 0.3 103/ul Normal 0.0-0.7 [facility] Comment on above: Performed By: #### U DINA, LIPID, TSH, BNP, CMP, T7 #### [facility] [address] [place] [address] Dr. Suzie Brooks Eosinophils/100 WBC (Bld) 2.3 % Normal 0.9-7.0 [facility] Comment on above: Performed By: #### U DINA, LIPID, TSH, BNP, CMP, T7 #### [facility] [address] [place] [address] Dr. Suzie Brooks Erythrocyte distribution width (RBC) [Ratio] 14.2 % Normal 11.0-15.0 [facility] Comment on above: Performed By: #### U DINA, LIPID, TSH, BNP, CMP, T7 #### [facility] [address] [place] [address] Dr. Suzie Brooks Hematocrit (Bld) [Volume fraction] 41.3 % Critically low 42.0-54.0 [facility] Comment on above: Performed By: #### U DINA, LIPID, TSH, BNP, CMP, T7 #### [facility] [address] [place] [address] Dr. Suzie Brooks Hemoglobin (Bld) [Mass/Vol] 13.4 g/dL Critically low 14.0-18.0 [facility] Comment on above: Performed By: #### U DINA, LIPID, TSH, BNP, CMP, T7 #### [facility] [address] [place] [address] Dr. Suzie Brooks IG # 0.03 10e3/ul Normal 0.00-0.03 [facility] Comment on above: Performed By: #### U DINA, LIPID, TSH, BNP, CMP, T7 #### [facility] [address] [place] [address] Dr. Suzie Brooks IG % 0.3 % Normal 0.0-0.5 [facility] Comment on above: Performed By: #### U DINA, LIPID, TSH, BNP, CMP, T7 #### [facility] [address] [address] [address] Suzie Brooks LYMPH # 2.0 103/ul Normal 1.2-3.8 [facility] Comment on above: Performed By: #### U DINA, LIPID, TSH, BNP, CMP, T7 #### [facility] [address] [place] [address] Dr. Suzie Brooks Lymphocytes/100 WBC (Bld) 18.0 % Critically low 20.5-60.0 [facility] Comment on above: Performed By: #### U DINA, LIPID, TSH, BNP, CMP, T7 #### [facility] [address] [place] [address] Dr. Suzie Brooks MANUAL DIFF REQ NO Normal [facility] Comment on above: Performed By: #### U DINA, LIPID, TSH, BNP, CMP, T7 #### [facility] [address] [place] [address] Dr. Suzie Brooks MCH (RBC) [Entitic mass] 28.8 pg Normal 25.9-34.0 [facility] Comment on above: Performed By: #### U DINA, LIPID, TSH, BNP, CMP, T7 #### [facility] [address] [place] [address] Dr. Suzie Brooks MCHC (RBC) [Mass/Vol] 32.4 g/dL Normal 29.9-35.2 [facility] Comment on above: Performed By: #### U DINA, LIPID, TSH, BNP, CMP, T7 #### [facility] [address] [place] [address] Dr. Suzie Brooks MCV (RBC) [Entitic vol] 88.6 fL Normal 80.0-94.0 [facility] Comment on above: Performed By: #### U DINA, LIPID, TSH, BNP, CMP, T7 #### [facility] [address] [place] [address] Dr. Suzie Brooks MONO # 1.0 103/ul Critically high 0.3-0.8 [facility] Comment on above: Performed By: #### U DINA, LIPID, TSH, BNP, CMP, T7 #### [facility] [address] [address] [address] Suzie Brooks Monocytes/100 WBC (Bld) 9.2 % Normal 1.7-12.0 [facility] Comment on above: Performed By: #### U DINA, LIPID, TSH, BNP, CMP, T7 #### [facility] [address] [address] [address] Suzie Brooks NEUT # 7.9 103/ul Critically high 1.4-6.5 [facility] Comment on above: Performed By: #### U DINA, LIPID, TSH, BNP, CMP, T7 #### [facility] [address] [address] [address] Suzie Brooks Neutrophils/100 WBC (Bld) 69.9 % Normal 43.0-75.0 [facility] Comment on above: Performed By: #### U DINA, LIPID, TSH, BNP, CMP, T7 #### [facility] [address] [address] [address] Suzie Brooks Platelet mean volume (Bld) [Entitic vol] 9.6 fL Normal 9.5-13.5 [facility] Comment on above: Performed By: #### U DINA, LIPID, TSH, BNP, CMP, T7 #### [facility] [address] [address] [address] Suzie Brooks PLT 218 103/ul Normal 150-450 [facility] Comment on above: Performed By: #### U DINA, LIPID, TSH, BNP, CMP, T7 #### [facility] [address] [address] [address] Suzie Brooks RBC 4.66 106/ul Critically low 4.70-6.10 [facility] Comment on above: Performed By: #### U DINA, LIPID, TSH, BNP, CMP, T7 #### [facility] [address] [address] [address] Suzie Brooks WBC 11.3 103/ul Critically high 4.0-11.0 [facility] Comment on above: Performed By: #### U DINA, LIPID, TSH, BNP, CMP, T7 #### [facility] [address] [address] [address] Suzie Brooks CULTURE URINEon 02-18-2022 CULTURE URINE Culture Observations : NO GROWTH. Normal [facility] Comment on above: Performed By: #### M AG24 #### [facility] [address] [address] [address] Suzie Brooks Covid-19 PCR (CVDTB)on 02-08 SARS-CoV-2 (COVID-19) RNA SUKHJINDER+probe Ql (Unsp spec) Not detected Normal NOT DETECTED [facility] Comment on above: Result Comment: When diagnostic [...] for this test is supported by the [employer]p Sales of Health and Human Service's declaration that [...] used). Performed By: #### C VDTBH #### [facility] [address] [address] [address] Suzie Brooks PROF 14(COMP METB)on 022 Albumin [Mass/Vol] 3.0 g/dL Critically low 3.4-5.0 Th e [facility] Comment on above: Performed By: #### O X24HR #### [facility] [address] [place] [address] [address] [address] Suzie Brooks Albumin/Globulin [Mass ratio] 0.9 {ratio} Normal [facility] Comment on above: Performed By: #### O X24HR #### [facility] [address] [address] [address] Suzie Brooks ALP [Catalytic activity/Vol] 49 U/L Normal 46-116 [facility] Comment on above: Performed By: #### O X24HR #### [facility] [address] [address] [address] Suzie Brooks ALT [Catalytic activity/Vol] 35 U/L Normal 16-63 [facility] Comment on above: Performed By: #### O X24HR #### [facility] [address] [address] [address] Suzie Brooks Anion gap [Moles/Vol] 11.8 mmol/L Normal [facility] Comment on above: Performed By: #### O X24HR #### [facility] [address] [place] [address] Dr. Suzie Brooks AST [Catalytic activity/Vol] 27 U/L Normal 15-37 [facility] Comment on above: Performed By: #### O X24HR #### [facility] [address] [address] [address] Suzie Brooks Bilirubin [Mass/Vol] 0.4 mg/dL Normal 0.2-1.0 [facility] Comment on above: Performed By: #### O X24HR #### [facility] [address] [place] [address] Dr. Suzie Brooks Calcium [Mass/Vol] 7.6 mg/dL Critically low 8.5-10.1 Th [facility] Comment on above: Performed By: #### O X24HR #### [facility] [address] [address] [address] Suzie Brooks Chloride [Moles/Vol] 106 mmol/L Normal 98-107 [facility] Comment on above: Performed By: #### O X24HR #### [facility] [address] [address] [address] Suzie Brooks CO2 [Moles/Vol] 26.2 mmol/L Normal 21.0-32.0 [facility] Comment on above: Performed By: #### O X24HR #### [facility] [address] [address] [address] Suzie Brooks Creatinine [Mass/Vol] 1.08 mg/dL Normal 0.70-1.30 [facility] Comment on above: Performed By: #### O X24HR #### [facility] [address] [address] [address] Suzie Brooks EGFR-AF UKRAINIAN >60 Normal >=60 [facility] Comment on above: Performed By: #### O X24HR #### [facility] [address] [address] [address] Suzie Brooks EGFR-NON AF UKRAINIAN >60 Normal >=60 [facility] Comment on above: Performed By: #### O X24HR #### [facility] [address] [place] [address] Dr. Suzie Brooks Globulin (S) [Mass/Vol] 3.2 g/dL Normal [facility] Comment on above: Performed By: #### O X24HR #### [facility] [address] [place] [address] Dr. Suzie Brooks Glucose [Mass/Vol] 107 mg/dL Critically high 74-106 [facility] Comment on above: Performed By: #### O X24HR #### [facility] [address] [place] [address] Dr. Suzie Brooks Potassium [Moles/Vol] 4.0 mmol/L Normal 3.5-5.1 [facility] Comment on above: Performed By: #### O X24HR #### [facility] [address] [place] [address] Dr. Suzie Brooks Protein [Mass/Vol] 6.2 g/dL Critically low 6.4-8.2 Th [facility] Comment on above: Performed By: #### O X24HR #### [facility] [address] [place] [address] Dr. Suzie Brooks Sodium [Moles/Vol] 140 mmol/L Normal 136-145 [facility] Comment on above: Performed By: #### O X24HR #### [facility] [address] [place] [address] Dr. Suzie Brooks Urea nitrogen [Mass/Vol] 14.0 mg/dL Normal 7.0-18.0 [facility] Comment on above: Performed By: #### O X24HR #### [facility] [address] [place] [address] Dr. Suzie Brooks Urea nitrogen/Creatinine [Mass ratio] 13.0 mg/mg Normal [facility] Comment on above: Performed By: #### O X24HR #### [facility] [address] [place] [address] Dr. Suzie Brooks CBC AUTO DIFFon 02-17-2022 BASO # 0.1 103/ul Normal 0.0-0.1 [facility] Comment on above: Performed By: #### M AG24 #### [facility] [address] [place] [address] Dr. Suzie Brooks Basophils/100 WBC (Bld) 0.4 % Normal 0.2-2.0 [facility] Comment on above: Performed By: #### M AG24 #### [facility] [address] [place] [address] Dr. Suzie Brooks EO # 0.3 103/ul Normal 0.0-0.7 [facility] Comment on above: Performed By: #### M AG24 #### [facility] [address] [place] [address] Dr. Suzie Brooks Eosinophils/100 WBC (Bld) 2.3 % Normal 0.9-7.0 [facility] Comment on above: Performed By: #### M AG24 #### [facility] [address] [place] [address] Dr. Suzie Brooks Erythrocyte distribution width (RBC) [Ratio] 13.8 % Normal 11.0-15.0 [facility] Comment on above: Performed By: #### M AG24 #### [facility] [address] [place] [address] Dr. Suzie Brooks Hematocrit (Bld) [Volume fraction] 45.2 % Normal 42.0-54.0 [facility] Comment on above: Performed By: #### M AG24 #### [facility] [address] [place] [address] Dr. Suzie Brooks Hemoglobin (Bld) [Mass/Vol] 14.9 g/dL Normal 14.0-18.0 [facility] Comment on above: Performed By: #### M AG24 #### [facility] [address] [place] [address] Dr. Suzie Brooks IG # 0.05 10e3/ul Critically high 0.00-0.03 [facility] Comment on above: Performed By: #### M AG24 #### [facility] [address] [place] [address] Dr. Suzie Brooks IG % 0.4 % Normal 0.0-0.5 [facility] Comment on above: Performed By: #### M AG24 #### [facility] [address] [place] [address] Dr. Suzie Brooks LYMPH # 2.5 103/ul Normal 1.2-3.8 [facility] Comment on above: Performed By: #### M AG24 #### [facility] [address] [place] [address] Dr. Suzie Brooks Lymphocytes/100 WBC (Bld) 17.3 % Critically low 20.5-60.0 [facility] Comment on above: Performed By: #### M AG24 #### [facility] [address] [place] [address] Dr. Suzie Brooks MANUAL DIFF REQ NO Normal [facility] Comment on above: Performed By: #### M AG24 #### [facility] [address] [place] [address] Dr. Suzie Brooks MCH (RBC) [Entitic mass] 28.7 pg Normal 25.9-34.0 [facility] Comment on above: Performed By: #### M AG24 #### [facility] [address] [place] [address] Dr. Suzie Brooks MCHC (RBC) [Mass/Vol] 33.0 g/dL Normal 29.9-35.2 [facility] Comment on above: Performed By: #### M AG24 #### [facility] [address] [place] [address] Dr. Suzie Brooks MCV (RBC) [Entitic vol] 87.1 fL Normal 80.0-94.0 [facility] Comment on above: Performed By: #### M AG24 #### [facility] [address] [place] [address] Dr. Suzie Brooks MONO # 1.0 103/ul Critically high 0.3-0.8 [facility] Comment on above: Performed By: #### M AG24 #### [facility] [address] [place] [address] Dr. Suzie Brooks Monocytes/100 WBC (Bld) 6.8 % Normal 1.7-12.0 [facility] Comment on above: Performed By: #### M AG24 #### [facility] [address] [place] [address] Dr. Suzie Brooks NEUT # 10.3 103/ul Critically high 1.4-6.5 [facility] Comment on above: Performed By: #### M AG24 #### [facility] [address] [place] [address] Dr. Suzie Brooks Neutrophils/100 WBC (Bld) 72.8 % Normal 43.0-75.0 [facility] Comment on above: Performed By: #### M AG24 #### [facility] [address] [place] [address] Dr. Suzie Brooks Platelet mean volume (Bld) [Entitic vol] 9.7 fL Normal 9.5-13.5 [facility] Comment on above: Performed By: #### M AG24 #### [facility] [address] [place] [address] Dr. Suzie Brooks PLT 253 103/ul Normal 150-450 [facility] Comment on above: Performed By: #### M AG24 #### [facility] [address] [place] [address] Dr. Suzie Brooks RBC 5.19 106/ul Normal 4.70-6.10 [facility] Comment on above: Performed By: #### M AG24 #### [facility] [address] [place] [address] Dr. Suzie Brooks WBC 14.2 103/ul Critically high 4.0-11.0 [facility] Comment on above: Performed By: #### M AG24 #### [facility] [address] [place] [address] Dr. Suzie Brooks CULTURE BLOODon 02-17-2022 Microscopic examination of blood, culture Culture Observations: NO GROWTH AT 5 DAYS. Normal [facility] Comment on above: Performed By: #### M AG24 #### [facility] [address] [place] [address] Dr. Suzie Brooks Microscopic examination of blood, culture Culture Observations: NO GROWTH AT 5 DAYS. Normal [facility] Comment on above: Performed By: #### M AG24 #### [facility] [address] [place] [address] Dr. Suzie Brooks ER URINE PROFILEon Bilirubin Ql (U) Negative Normal NEGATIVE [facility] Comment on above: Performed By: #### E RUR #### [facility] [address] [place] [address] Dr. Suzie Brooks Clarity (U) CLEAR Normal CLEAR [facility] Comment on above: Performed By: #### E RUR #### [facility] [address] [place] [address] Dr. Suzie Brooks Color (U) DK. YELLOW Normal YELLOW [facility] Comment on above: Performed By: #### E RUR #### [facility] [address] [place] [address] Dr. Suzie Brooks ERUAHD A micrscopic examina tion will be performed if indicated. Normal [facility] Comment on above: Performed By: #### E RUR #### [facility] [address] [place] [address] Dr. Suzie Brooks Glucose Ql (U) Negative Normal NEGATIVE [facility] Comment on above: Performed By: #### E RUR #### [facility] [address] [place] [address] Dr. Suzie Brooks Hemoglobin Ql (U) Negative Normal NEGATIVE [facility] Comment on above: Performed By: #### E RUR #### [facility] [address] [place] [address] Dr. Suzie Brooks Ketones Ql (U) Negative Normal NEGATIVE [facility] Comment on above: Performed By: #### E RUR #### [facility] [address] [place] [address] Dr. Suzie Brooks LEUKOCYTES Negative Normal NEGATIVE [facility] Comment on above: Performed By: #### E RUR #### [facility] [address] [place] [address] Dr. Suzie Brooks Nitrite Ql (U) Negative Normal NEGATIVE [facility] Comment on above: Performed By: #### E RUR #### [facility] [address] [place] [address] Dr. Suzie Brooks pH (U) 5.0 [pH] Normal 5-9 [facility] Comment on above: Performed By: #### E RUR #### [facility] [address] [place] [address] Dr. Suzie Brooks SPEC GRAVITY >=1.030 Abnormal 1.005-<=1.02 5 [facility] Comment on above: Performed By: #### E RUR #### [facility] [address] [place] [address] Dr. Suzie Brooks UA PROTEIN Negative Normal NEGATIVE/ TRACE [facility] Comment on above: Performed By: #### E RUR #### [facility] [address] [place] [address] Dr. Suzie Brooks UR MICRO IND NOT INDICATED Normal [facility] Comment on above: Performed By: #### E RUR #### [facility] [address] [place] [address] Dr. Suzie Brooks Urobilinogen Qn (U) 0.2 {Behzad'U}/dL Normal 0.2 - 1. 0 [facility] Comment on above: Performed By: #### E RUR #### [facility] [address] [place] [address] Dr. Suzie Brooks LACTATE/LACTIC ACIDon 2021 Lactate [Moles/Vol] 1.4 mmol/L Normal 0.4-1.9 [facility] Comment on above: Performed By: #### U DINA, LIPID, TSH, BNP, CMP, T7 #### [facility] [address] [place] [address] Dr. Suzie Brooks PROF CHEM 8 (BAS METB)on Anion gap [Moles/Vol] 12.2 mmol/L Normal [facility] Comment on above: Performed By: #### U DINA, LIPID, TSH, BNP, CMP, T7 #### [facility] [address] [address] [address] Suzie Brooks Calcium [Mass/Vol] 8.1 mg/dL Critically low 8.5-10.1 [facility] Comment on above: Performed By: #### U DINA, LIPID, TSH, BNP, CMP, T7 #### [facility] [address] [place] [address] Dr. Suzie Brooks Chloride [Moles/Vol] 103 mmol/L Normal 98-107 [facility] Comment on above: Performed By: #### U DINA, LIPID, TSH, BNP, CMP, T7 #### [facility] [address] [place] [address] Dr. Suzie Brooks CO2 [Moles/Vol] 26.1 mmol/L Normal 21.0-32.0 [facility] Comment on above: Performed By: #### U DINA, LIPID, TSH, BNP, CMP, T7 #### [facility] [address] [address] [address] Suzie Brooks Creatinine [Mass/Vol] 1.06 mg/dL Normal 0.70-1.30 [facility] Comment on above: Performed By: #### U DINA, LIPID, TSH, BNP, CMP, T7 #### [facility] [address] [place] [address] Dr. Suzie Brooks EGFR-AF UKRAINIAN >60 Normal >=60 [facility] Comment on above: Performed By: #### U DINA, LIPID, TSH, BNP, CMP, T7 #### [facility] [address] [address] [address] Suzie Brooks EGFR-NON AF UKRAINIAN >60 Normal >=60 [facility] Comment on above: Performed By: #### U DINA, LIPID, TSH, BNP, CMP, T7 #### [facility] [address] [place] [address] Dr. Suzie Brooks Glucose [Mass/Vol] 138 mg/dL Critically high 74-106 [facility] Comment on above: Performed By: #### U DINA, LIPID, TSH, BNP, CMP, T7 #### [facility] [address] [address] [address] Suzie Brooks Potassium [Moles/Vol] 4.3 mmol/L Normal 3.5-5.1 [facility] Comment on above: Performed By: #### U DINA, LIPID, TSH, BNP, CMP, T7 #### [facility] [address] [place] [address] Dr. Suzie Brooks Sodium [Moles/Vol] 137 mmol/L Normal 136-145 [facility] Comment on above: Performed By: #### U DINA, LIPID, TSH, BNP, CMP, T7 #### [facility] [address] [address] [address] Suzie Brooks Urea nitrogen [Mass/Vol] 14.0 mg/dL Normal 7.0-18.0 [facility] Comment on above: Performed By: #### U DINA, LIPID, TSH, BNP, CMP, T7 #### [facility] [address] [address] [address] Suzie Brooks Urea nitrogen/Creatinine [Mass ratio] 13.2 mg/mg Normal [facility] Comment on above: Performed By: #### U DINA, LIPID, TSH, BNP, CMP, T7 #### [facility] [address] [place] [address] Dr. Suzie Brooks TROPONIN, HIGH SENSITIVITYon 02-17-2022 HSTROP 8.4 pg/mL Normal 4.0-76.1 [facility] Comment on above: Result Comment: CUT- OFF POINTS HAVE BEEN ESTABLISHED BASED ON THE FOURTH UNIVERSAL DEFINITIONS OF MYOCARDIAL INFARCTION. THE UPPER REFERENCE LIMIT (URL) OF TROPONIN, DEFINED THE 99TH PERCENTILE OF cTnI DISTRIBUTION IN A REFERENCE POPULATION, HAS BEEN CONFIRMED THE DECISION THRESHOLD FOR SC DIAGNOSIS. Performed By: #### U DINA, LIPID, TSH, BNP, CMP, T7 #### [facility] [address] [place] [address] Dr. Suzie Brooks CBC AUTO DIFFon 02-16-2022 BASO # 0.1 103/ul Normal 0.0-0.1 [facility] Comment on above: Performed By: #### U DINA, LIPID, TSH, BNP, CMP, T7 #### [facility] [address] [place] [address] Dr. Suzie Brooks Basophils/100 WBC (Bld) 0.4 % Normal 0.2-2.0 [facility] Comment on above: Performed By: #### U DINA, LIPID, TSH, BNP, CMP, T7 #### [facility] [address] [place] [address] Dr. Suzie Brooks EO # 0.3 103/ul Normal 0.0-0.7 [facility] Comment on above: Performed By: #### U DINA, LIPID, TSH, BNP, CMP, T7 #### [facility] [address] [place] [address] Dr. Suzie Brooks Eosinophils/100 WBC (Bld) 2.5 % Normal 0.9-7.0 [facility] Comment on above: Performed By: #### U DINA, LIPID, TSH, BNP, CMP, T7 #### [facility] [address] [place] [address] Dr. Suzie Brooks Erythrocyte distribution width (RBC) [Ratio] 13.9 % Normal 11.0-15.0 [facility] Comment on above: Performed By: #### U DINA, LIPID, TSH, BNP, CMP, T7 #### [facility] [address] [place] [address] Dr. Suzie Brooks Hematocrit (Bld) [Volume fraction] 46.6 % Normal 42.0-54.0 [facility] Comment on above: Performed By: #### U DINA, LIPID, TSH, BNP, CMP, T7 #### [facility] [address] [place] [address] Dr. Suzie Brooks Hemoglobin (Bld) [Mass/Vol] 15.7 g/dL Normal 14.0-18.0 [facility] Comment on above: Performed By: #### U DINA, LIPID, TSH, BNP, CMP, T7 #### [facility] [address] [address] [address] Suzie Brooks IG # 0.05 10e3/ul Critically high 0.00-0.03 [facility] Comment on above: Performed By: #### U DINA, LIPID, TSH, BNP, CMP, T7 #### [facility] [address] [address] [address] Suzie Brooks IG % 0.4 % Normal 0.0-0.5 [facility] Comment on above: Performed By: #### U DINA, LIPID, TSH, BNP, CMP, T7 #### [facility] [address] [place] [address] Dr. Suzie Brooks LYMPH # 3.7 103/ul Normal 1.2-3.8 [facility] Comment on above: Performed By: #### U DINA, LIPID, TSH, BNP, CMP, T7 #### [facility] [address] [address] [address] Suzie Brooks Lymphocytes/100 WBC (Bld) 26.6 % Normal 20.5-60.0 [facility] Comment on above: Performed By: #### U DINA, LIPID, TSH, BNP, CMP, T7 #### [facility] [address] [address] [address] Suzie Brooks MANUAL DIFF REQ NO Normal [facility] Comment on above: Performed By: #### U DINA, LIPID, TSH, BNP, CMP, T7 #### [facility] [address] [address] [address] Suzie Brooks MCH (RBC) [Entitic mass] 29.2 pg Normal 25.9-34.0 [facility] Comment on above: Performed By: #### U DINA, LIPID, TSH, BNP, CMP, T7 #### [facility] [address] [place] [address] Dr. Suzie Brooks MCHC (RBC) [Mass/Vol] 33.7 g/dL Normal 29.9-35.2 [facility] Comment on above: Performed By: #### U DINA, LIPID, TSH, BNP, CMP, T7 #### [facility] [address] [place] [address] Dr. Suzie Brooks MCV (RBC) [Entitic vol] 86.6 fL Normal 80.0-94.0 [facility] Comment on above: Performed By: #### U DINA, LIPID, TSH, BNP, CMP, T7 #### [facility] [address] [place] [address] Dr. Suzie Brooks MONO # 1.0 103/ul Critically high 0.3-0.8 [facility] Comment on above: Performed By: #### U DINA, LIPID, TSH, BNP, CMP, T7 #### [facility] [address] [place] [address] Dr. Suzie Brooks Monocytes/100 WBC (Bld) 7.2 % Normal 1.7-12.0 [facility] Comment on above: Performed By: #### U DINA, LIPID, TSH, BNP, CMP, T7 #### [facility] [address] [place] [address] Dr. Suzie Brooks NEUT # 8.7 103/ul Critically high 1.4-6.5 [facility] Comment on above: Performed By: #### U DINA, LIPID, TSH, BNP, CMP, T7 #### [facility] [address] [place] [address] Dr. Suzie Brooks Neutrophils/100 WBC (Bld) 62.9 % Normal 43.0-75.0 [facility] Comment on above: Performed By: #### U DINA, LIPID, TSH, BNP, CMP, T7 #### [facility] [address] [place] [address] Dr. Suzie Brooks Platelet mean volume (Bld) [Entitic vol] 9.4 fL Critically low 9.5-13.5 [facility] Comment on above: Performed By: #### U DINA, LIPID, TSH, BNP, CMP, T7 #### [facility] [address] [place], [place] [address] Dr. Suzie Brooks PLT 277 103/ul Normal 150-450 [facility] Comment on above: Performed By: #### U DINA, LIPID, TSH, BNP, CMP, T7 #### [facility] [address] [place], [place] [address] Dr. Suzie Brooks RBC 5.38 106/ul Normal 4.70-6.10 [facility] Comment on above: Performed By: #### U DINA, LIPID, TSH, BNP, CMP, T7 #### [facility] [address] [place], [place] [address] Dr[address] Suzie Brooks WBC 13.8 103/ul Critically high 4.0-11.0 [facility] Comment on above: Performed By: #### U DINA, LIPID, TSH, BNP, CMP, T7 #### [facility] [address] [place], [place] [address] ABD/PELVIS WO CONon [...] Reilly CAST Date: 2022-02-16 20:51 Normal [facility] ER URINE PROFILEon 2 Bilirubin Ql (U) Negative Normal NEGATIVE [facility] Comment on above: Performed By: #### U DINA, LIPID, TSH, BNP, CMP, T7 #### [facility] [address] [place] [address] Dr. Suzie Brooks Clarity (U) CLEAR Normal CLEAR [facility] Comment on above: Performed By: #### U DINA, LIPID, TSH, BNP, CMP, T7 #### [facility] [address] [address] [address] Suzie Brooks Color (U) YELLOW Normal YELLOW [facility] Comment on above: Performed By: #### U DINA, LIPID, TSH, BNP, CMP, T7 #### [facility] [address] [address] [address] Suzie Brooks ERUAHD A micrscopic examina tion will be performed if indicated. Normal [facility] Comment on above: Performed By: #### U DINA, LIPID, TSH, BNP, CMP, T7 #### [facility] [address] [place] [address] Dr. Suzie Brooks Glucose Ql (U) Negative Normal NEGATIVE [facility] Comment on above: Performed By: #### U DINA, LIPID, TSH, BNP, CMP, T7 #### [facility] [address] [address] [address] Suzie Brooks Hemoglobin Ql (U) MODERATE Abnormal NEGATIVE [facility] Comment on above: Performed By: #### U DINA, LIPID, TSH, BNP, CMP, T7 #### [facility] [address] [address] [address] Suzie Brooks Ketones Ql (U) Negative Normal NEGATIVE [facility] Comment on above: Performed By: #### U DINA, LIPID, TSH, BNP, CMP, T7 #### [facility] [address] [address] [address] Suzie Brooks LEUKOCYTES Negative Normal NEGATIVE [facility] Comment on above: Performed By: #### U DINA, LIPID, TSH, BNP, CMP, T7 #### [facility] [address] [address] [address] Suzie Brooks Nitrite Ql (U) Negative Normal NEGATIVE [facility] Comment on above: Performed By: #### U DINA, LIPID, TSH, BNP, CMP, T7 #### [facility] [address] [address] [address] Suzie Brooks pH (U) 5.5 [pH] Normal 5-9 [facility] Comment on above: Performed By: #### U DINA, LIPID, TSH, BNP, CMP, T7 #### [facility] [address] [address] [address] Suzie Brooks SPEC GRAVITY >=1.030 Abnormal 1.005-<=1.02 5 [facility] Comment on above: Performed By: #### U DINA, LIPID, TSH, BNP, CMP, T7 #### [facility] [address] [address] [address] Suzie Brooks UA PROTEIN Negative Normal NEGATIVE/ TRACE [facility] Comment on above: Performed By: #### U DINA, LIPID, TSH, BNP, CMP, T7 #### [facility] [address] [address] [address] Suzie Brooks UR MICRO IND INDICATED Normal [facility] Comment on above: Performed By: #### U DINA, LIPID, TSH, BNP, CMP, T7 #### [facility] [address] [address] [address] Suzie Brooks Urobilinogen Qn (U) 0.2 {Behzad'U}/dL Normal 0.2 - 1. 0 [facility] Comment on above: Performed By: #### U DINA, LIPID, TSH, BNP, CMP, T7 #### [facility] [address] [address] [address] Szuie Brooks PROF CHEM 8 (BAS METB)on Anion gap [Moles/Vol] 12.2 mmol/L Normal [facility] Comment on above: Performed By: #### U DINA, LIPID, TSH, BNP, CMP, T7 #### [facility] [address] [place] [address] Dr. Suzie Brooks Calcium [Mass/Vol] 8.5 mg/dL Normal 8.5-10.1 [facility] Comment on above: Performed By: #### U DINA, LIPID, TSH, BNP, CMP, T7 #### [facility] [address] [address] [address] Suzie Brooks Chloride [Moles/Vol] 104 mmol/L Normal 98-107 [facility] Comment on above: Performed By: #### U DINA, LIPID, TSH, BNP, CMP, T7 #### [facility] [address] [address] [address] Suzie Brooks CO2 [Moles/Vol] 24.1 mmol/L Normal 21.0-32.0 [facility] Comment on above: Performed By: #### U DINA, LIPID, TSH, BNP, CMP, T7 #### [facility] [address] [place] [address] Dr. Suzie Brooks Creatinine [Mass/Vol] 1.14 mg/dL Normal 0.70-1.30 [facility] Comment on above: Performed By: #### U DINA, LIPID, TSH, BNP, CMP, T7 #### [facility] [address] [address] [address] Suzie Brooks EGFR-AF UKRAINIAN >60 Normal >=60 [facility] Comment on above: Performed By: #### U DINA, LIPID, TSH, BNP, CMP, T7 #### [facility] [address] [address] [address] Suzie Brooks EGFR-NON AF UKRAINIAN >60 Normal >=60 [facility] Comment on above: Performed By: #### U DINA, LIPID, TSH, BNP, CMP, T7 #### [facility] [address] [address] [address] Suzie Brooks Glucose [Mass/Vol] 114 mg/dL Critically high 74-106 [facility] Comment on above: Performed By: #### U DINA, LIPID, TSH, BNP, CMP, T7 #### [facility] [address] [place] [address] Dr. Suzie Brooks Potassium [Moles/Vol] 4.3 mmol/L Normal 3.5-5.1 [facility] Comment on above: Performed By: #### U DINA, LIPID, TSH, BNP, CMP, T7 #### [facility] [address] [address] [address] Suzie Brooks Sodium [Moles/Vol] 136 mmol/L Normal 136-145 [facility] Comment on above: Performed By: #### U DINA, LIPID, TSH, BNP, CMP, T7 #### [facility] [address] [address] [address] Suzie Brooks Urea nitrogen [Mass/Vol] 14.0 mg/dL Normal 7.0-18.0 [facility] Comment on above: Performed By: #### U DINA, LIPID, TSH, BNP, CMP, T7 #### [facility] [address] [address] [address] Suzie Brooks Urea nitrogen/Creatinine [Mass ratio] 12.3 mg/mg Normal [facility] Comment on above: Performed By: #### U DINA, LIPID, TSH, BNP, CMP, T7 #### [facility] [address] [address] [address] Suzie Brooks URINE MICROSCOPIC ONLYon BACTERIA NONE SEEN Normal NONE SEEN [facility] Comment on above: Performed By: #### U DINA, LIPID, TSH, BNP, CMP, T7 #### [facility] [address] [address] [address] Suzie Brooks Bacteria identified Cx Nom (U) NOT INDICATED Normal [facility] Comment on above: Performed By: #### U DINA, LIPID, TSH, BNP, CMP, T7 #### [facility] [address] [address] [address] Suzie Brooks CAST NONE SEEN Normal NONE SEEN [facility] Comment on above: Performed By: #### U DINA, LIPID, TSH, BNP, CMP, T7 #### [facility] [address] [place] [address] Dr. Suzie Brooks Crystals LM Nom (Urine sed) NONE SEEN Normal NONE SEEN [facility] Comment on above: Performed By: #### U DINA, LIPID, TSH, BNP, CMP, T7 #### [facility] [address] [place] [address] Dr. Suzie Brooks Epithelial cells LM Ql (Urine sed) RARE Normal NONE SEEN /RARE [facility] Comment on above: Performed By: #### U DINA, LIPID, TSH, BNP, CMP, T7 #### [facility] [address] [place] [address] Dr. Suzie Brooks MUCOUS NONE SEEN Normal NONE SEEN [facility] Comment on above: Performed By: #### U DINA, LIPID, TSH, BNP, CMP, T7 #### [facility] [address] [place] [address] Dr. Suzie Brooks RBC 5-10 Abnormal 0-2 [facility] Comment on above: Performed By: #### U DINA, LIPID, TSH, BNP, CMP, T7 #### [facility] [address] [place] [address] Dr. Suzie Brooks WBC NONE SEEN Normal NONE SEEN [facility] Comment on above: Performed By: #### U DINA, LIPID, TSH, BNP, CMP, T7 #### [facility] [address] [place] [address] Dr. Suzie Brooks CITRATE URINE 24HRon 022 Citric Acid, U, 24hr 1312 mg/24 hr Critically high 320-124 0 [facility] Comment on above: Result Comment: This test was developed and its performance characteristics determined by [facility]. It has not been cleared or approved by the Food and Drug Administration. Performed By: #### U DINA, LIPID, TSH, BNP, CMP, T7 #### [facility] [facility] [address] [place] [address] Dr. Suzie Brooks Citric Acid, Urine 610 mg/L Normal Undefined [facility] Comment on above: Performed By: #### U DINA, LIPID, TSH, BNP, CMP, T7 #### [facility] [address] [place] [address] Dr. Suzie Brooks OXALATE 24HR URINEon 022 Oxalates, Urine 11 mg/L Normal Undefined [facility] Comment on above: Performed By: #### O [id number] #### [facility] [address] [place] [address] Dr. Suzie Brooks Oxalates, Urine 24hr 24 mg/24 hr Normal 7-44 [facility] Comment on above: Performed By: #### O [id number] #### [facility] [address] [place] [address] Dr. Suzie Brooks MAGNESIUM 24HR URINEon 02-02 Magnesium 24hr Urine 77.4 mg/24 hr Normal 12.0-293.0 [facility] Comment on above: Performed By: #### M AG24 #### [facility] [address] [place] [address] Dr. Suzie Brooks Magnesium UR 3.6 mg/dL Normal Not Estab. [facility] Comment on above: Performed By: #### M AG24 #### [facility] [address] [place] [address] Dr. Suzie Brooks PHOSPHORUS 24HR URINEon 01-10 Phosphorus, Urine 44.1 mg/dL Normal Not Estab. [facility] Comment on above: Performed By: #### U DINA, LIPID, TSH, BNP, CMP, T7 #### [facility] [address] [place], [place] [address] Dr. Suzie Brooks Phosphorus, Urine 24hr 948 mg/24 hr Normal 390-1425 [facility] Comment on above: Performed By: #### U DINA, LIPID, TSH, BNP, CMP, T7 #### [facility] [address] [place], [place] [address] Dr. Suzie Brooks URIC ACID 24 HR URINEon 01-10 Uric Acid, Urine 35.4 mg/dL Normal Not Estab. [facility] Comment on above: Performed By: #### U DINA, LIPID, TSH, BNP, CMP, T7 #### [facility] [address] [address] [address] Suzie Brooks Uric Acid, Urine 24hr 761.1 mg/24 hr Normal 182.4-936.8 [facility] Comment on above: Performed By: #### U DINA, LIPID, TSH, BNP, CMP, T7 #### [facility] [address] [place] [address] Dr. Suzie Brooks CALCIUM 24 HR URINEon 2021 CALC, 24 HR UR 187.0 mg/24 hr Normal 100.0-300.0 [facility] Comment on above: Performed By: #### U DINA, LIPID, TSH, BNP, CMP, T7 #### [facility] [address] [place], [place] [id number] Dr. Suzie Brooks UR CALCIUM 8.7 mg/dL Normal 5.1-21.0 [facility] Comment on above: Performed By: #### U DINA, LIPID, TSH, BNP, CMP, T7 #### [facility] [address] [place], [place] [address] Dr. Suzie Brooks UR TOT VOL 2150 ml/24 HR Normal [facility] Comment on above: Performed By: #### U DINA, LIPID, TSH, BNP, CMP, T7 #### [facility] [address] [place], [place] [id number] Dr. Suzie Brooks CREA 24 HR URINEon CREA, 24 HR UR 1983.59 mg/24 hr Normal 1,000.00- 2,0 00.00 [facility] Comment on above: Performed By: #### U DINA, LIPID, TSH, BNP, CMP, T7 #### [facility] [address] [address] [address] Suzie Brooks URINE CREAT 92.26 mg/dL Normal 20.00-300.00 [facility] Comment on above: Performed By: #### U DINA, LIPID, TSH, BNP, CMP, T7 #### [facility] [address] [place] [address] Dr. Suzie Brooks SODIUM 24 HR URINEon 022 NA, 24 HR UR 172 mmol/24 hr Normal 40-220 [facility] Comment on above: Performed By: #### U DINA, LIPID, TSH, BNP, CMP, T7 #### [facility] [address] [place] [address] Dr. Suzie Brooks Sodium (U) [Moles/Vol] 80 mmol/L Normal 30-90 [facility] Comment on above: Performed By: #### U DINA, LIPID, TSH, BNP, CMP, T7 #### [facility] [address] [place] [address] Dr. Suzie Brooks PTH INTACTon 01-31-2022 PTH, Intact 24 pg/mL Normal 15-65 [facility] Comment on above: Performed By: #### U DINA, LIPID, TSH, BNP, CMP, T7 #### [facility] [address] [place] [address] Dr. Suzie Brooks BUNon 01-30-2022 Urea nitrogen [Mass/Vol] 12.0 mg/dL Normal 7.0-18.0 [facility] Comment on above: Performed By: #### U DINA, LIPID, TSH, BNP, CMP, T7 #### [facility] [address] [place] [address] Dr. Suzie Brooks CALCIUMon 01-30-2022 Calcium [Mass/Vol] 8.6 mg/dL Normal 8.5-10.1 [facility] Comment on above: Performed By: #### U DINA, LIPID, TSH, BNP, CMP, T7 #### [facility] [address] [place] [address] Dr. Suzie Brooks CHLORIDEon 01-30-2022 Chloride [Moles/Vol] 104 mmol/L Normal 98-107 [facility] Comment on above: Performed By: #### U DINA, LIPID, TSH, BNP, CMP, T7 #### [facility] [address] [place] [address] [address] Suzie Brooks CO2on 01-30-2022 CO2 [Moles/Vol] 29.3 mmol/L Normal 21.0-32.0 [facility] Comment on above: Performed By: #### U DINA, LIPID, TSH, BNP, CMP, T7 #### [facility] [address] [place] [address] [address] Suzie Brooks CREATININEon 01-30-2022 Creatinine [Mass/Vol] 0.92 mg/dL Normal 0.70-1.30 [facility] Comment on above: Performed By: #### U DINA, LIPID, TSH, BNP, CMP, T7 #### [facility] [address] [place] [address] [address] Suzie Brooks EGFR-AF UKRAINIAN >60 Normal >=60 [facility] Comment on above: Performed By: #### U DINA, LIPID, TSH, BNP, CMP, T7 #### [facility] [address] [place] [address] [address] Suzie Brooks EGFR-NON AF UKRAINIAN >60 Normal >=60 [facility] Comment on above: Performed By: #### U DINA, LIPID, TSH, BNP, CMP, T7 #### [facility] [address] [place] [address] [address] Suzie Brooks NAon 01-30-2022 Sodium [Moles/Vol] 140 mmol/L Normal 136-145 [facility] Comment on above: Performed By: #### U DINA, LIPID, TSH, BNP, CMP, T7 #### [facility] [address] [place] [address] [address] Suzie Brooks POTASSIUMon 01-30-2022 Potassium [Moles/Vol] 4.0 mmol/L Normal 3.5-5.1 [facility] Comment on above: Performed By: #### U DINA, LIPID, TSH, BNP, CMP, T7 #### [facility] [address] [place], [place] [address] Dr. Suzie Brooks URIC ACID SERUMon 01-30-2022 Urate [Mass/Vol] 5.2 mg/dL Normal 3.5-7.2 [facility] Comment on above: Performed By: #### U DINA, LIPID, TSH, BNP, CMP, T7 #### [facility] [address] [place], [place] [address] Dr. Suzie Brooks US KIDNEYSon 12-18-2021 US KIDNEYS EXAMINATION: [facility]: Kidney stone ; right flank pain [...] BEHZAD CARRASQUILLO Date: 2021-12-18 09:51 Normal [facility] XR KUB 1 VIEWon 11-21-2021 XR KUB [...] by: BEHZAD CARRASQUILLO Date: 2021-11-21 09:45 Normal [facility] XR KUBon 11-15-2021 XR KUB [facility] [place] [address] [place], [place] [id number] XRay Report Signed Patient: Tom Aparicio MR#: [id number] 4 : 1950 Acct:[id number] Age/Sex: 71 / M ADM Date: 11/15/21 Loc: CT Room: Type: [facility] Attending Dr: Miki Zeng MD [...] Hancock Jr., M.D.11/15/2021 10:43 AM Dictation Location: [place] [address] Transcribed By: [facility] 11/15/21 1043 Dictated By: Yared Hancock Jr, MD 11/15/21 1039 Signed By: 11/15/21 [address] [facility] COVID-19 [facility] SARS-CoV-2 (COVID-19) RNA SUKHJINDER+probe Ql (Unsp spec) Negative Normal Negative 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. This test has not been FDA [...] is terminated or revoked sooner. PERFORMED BY: [place] [address] PATHOLOGIST [employer] JIA MINAYA M.D. Performed By: #### C OVID 19 [facility] #### [address] COVID-19 Positive/NegativeOr dered By: Miki Zeng on 11-13-2021 SARS-CoV-2 (COVID-19) N gene SUKHJINDER+probe Ql (Resp) Negative Negative [facility] Comment on above: Testing for SARS-CoV -2 by RT-PCRThis test was developed and its performance characteristics determined by [employer] ([employer]) and validated at the [facility]. This test has not been FDA [...] sooner. CALCULI, URINARYon 2 2,8 Dihydroxyadenine Normal [facility] Comment on above: Performed By: #### U DINA, LIPID, TSH, BNP, CMP, T7 #### [facility] [address] [place] [address] [address] Suzie Brooks Ammonium Acid Urate Normal [facility] Comment on above: Performed By: #### U DINA, LIPID, TSH, BNP, CMP, T7 #### [facility] [address] [place] [address] [address] Suzie Brooks Bilirubin Ql (U) [facility] Comment on above: Performed By: #### U DINA, LIPID, TSH, BNP, CMP, T7 #### [facility] [address] [place] [address] [address] Suzie Brooks Ca Oxalate Dihydrate [facility] Comment on above: Performed By: #### U DINA, LIPID, TSH, BNP, CMP, T7 #### [facility] [address] [place] [address] [address] Suzie Brooks CaHPO4 (Brushite) [facility] Comment on above: Performed By: #### U DINA, LIPID, TSH, BNP, CMP, T7 #### [facility] [address] [place] [address] [address] Suzie Brooks Calcium Bilirubinate [facility] Comment on above: Performed By: #### U DINA, LIPID, TSH, BNP, CMP, T7 #### [facility] [address] [place] [address] [address] Suzie Brooks Calcium Carbonate Normal [facility] Comment on above: Performed By: #### U DINA, LIPID, TSH, BNP, CMP, T7 #### [facility] [address] [place] [address] [address] Suzie Brooks Calcium Oxalate Monohydrate 70 % [facility] Comment on above: Performed By: #### U DINA, LIPID, TSH, BNP, CMP, T7 #### [facility] [address] [place] [address] [address] Suzie Brooks Calcium Palmitate [facility] Comment on above: Performed By: #### U DINA, LIPID, TSH, BNP, CMP, T7 #### [facility] [address] [place] [address] [address] Suzie Brooks Calcium Phosphate Normal [facility] Comment on above: Performed By: #### U DINA, LIPID, TSH, BNP, CMP, T7 #### [facility] [address] [place] [address] [address] Suzie Brooks Calcium Stearate Normal [facility] Comment on above: Performed By: #### U DINA, LIPID, TSH, BNP, CMP, T7 #### [facility] [address] [place] [address] [address] Suzie Brooks Carbonate Apatite Normal [facility] Comment on above: Performed By: #### U DINA, LIPID, TSH, BNP, CMP, T7 #### [facility] [address] [place] [address] [address] Suzie Brooks Cellular Material Normal [facility] Comment on above: Performed By: #### U DINA, LIPID, TSH, BNP, CMP, T7 #### [facility] [address] [place] [address] [address] Suzie Brooks Cholesterol Normal [facility] Comment on above: Performed By: #### U DINA, LIPID, TSH, BNP, CMP, T7 #### [facility] [address] [place] [address] [address] Suzie Brooks Color (U) Brown Normal [facility] Comment on above: Performed By: #### U DINA, LIPID, TSH, BNP, CMP, T7 #### [facility] [address] [place] [address] [address] Suzie Brooks Comment Normal [facility] Comment on above: Performed By: #### U DINA, LIPID, TSH, BNP, CMP, T7 #### [facility] [address] [place] [address] [address] Suzie Brooks Comment: Comment Normal [facility] Comment on above: Result Comment: Fantasma baez questions regarding Calculi Analysis contact [facility] at: [phone]. Performed By: #### U DINA, LIPID, TSH, BNP, CMP, T7 #### [facility] [address] [place] [address] [address] Suzie Brooks Composition Comment Normal [facility] Comment on above: Result Comment: Perc entage (Represents the % composition) Performed By: #### U DINA, LIPID, TSH, BNP, CMP, T7 #### [facility] [address] [place] [address] [address] Suzie Brooks Cystine Normal [facility] Comment on above: Performed By: #### U DINA, LIPID, TSH, BNP, CMP, T7 #### [facility] [address] [place] [address] [address] Suzie Brooks Disclaimer: Comment Normal [facility] Comment on above: Result Comment: This test was developed and its performance characteristics determined by [employer]. It has not been cleared or approved by the Food and Drug Administration. Performed By: #### U DINA, LIPID, TSH, BNP, CMP, T7 #### [facility] [address] [place] [address] Dr. Suzie Brooks Dried Blood Normal [facility] Comment on above: Performed By: #### U DINA, LIPID, TSH, BNP, CMP, T7 #### [facility] [address] [place] [address] [address] Suzie Brooks Drug or Metabolite Normal [facility] Comment on above: Performed By: #### U DINA, LIPID, TSH, BNP, CMP, T7 #### [facility] [address] [place] [address] [address] Suzie Brooks Hydroxyapatite Normal [facility] Comment on above: Performed By: #### U DINA, LIPID, TSH, BNP, CMP, T7 #### [facility] [address] [place] [address] [address] Suzie Brooks Mg NH4 PO4 (Struvite) [facility] Comment on above: Performed By: #### U DINA, LIPID, TSH, BNP, CMP, T7 #### [facility] [address] [place] [address] [address] Suzie Brooks MgHPO4 (Newberyite) Normal [facility] Comment on above: Performed By: #### U DINA, LIPID, TSH, BNP, CMP, T7 #### [facility] [address] [place] [address] [address] Suzie Brooks Other component(s) Normal [facility] Comment on above: Performed By: #### U DINA, LIPID, TSH, BNP, CMP, T7 #### [facility] [address] [place] [address] [address] Suzie Brooks PDF . Normal [facility] Comment on above: Performed By: #### U DINA, LIPID, TSH, BNP, CMP, T7 #### [facility] [address] [place] [address] [address] Suzie Brooks Photo Comment [facility] Comment on above: Result Comment: Phot ograph will follow under a separate cover Performed By: #### U DINA, LIPID, TSH, BNP, CMP, T7 #### [facility] [address] [place] [address] [address] Suzie Brooks Please note: Comment Normal [facility] Comment on above: Result Comment: Calc shamika report will follow via computer, mail or ic engineer delivery. Performed By: #### U DINA, LIPID, TSH, BNP, CMP, T7 #### [facility] [address] [place] [address] [address] Suzie Brooks Size 3x2 [facility] Comment on above: Result Comment: Mult iple pieces received. Dimensions of the largest piece reported. Performed By: #### U DINA, LIPID, TSH, BNP, CMP, T7 #### [facility] [address] [place] [address] [address] Suzie Brooks Sodium Acid Urate Normal [facility] Comment on above: Performed By: #### U DINA, LIPID, TSH, BNP, CMP, T7 #### [facility] [address] [place] [address] [address] Suzie Brooks Source Comment [facility] Comment on above: Result Comment: Jessica Reese Performed By: #### U DINA, LIPID, TSH, BNP, CMP, T7 #### [facility] [address] [place] [address] [address] Suzie Brooks Triamterene [facility] Comment on above: Performed By: #### U DINA, LIPID, TSH, BNP, CMP, T7 #### [facility] [address], [place] [address] Dr. Suzie Brooks Uric Acid 30 % Normal [facility] Comment on above: Performed By: #### U DINA, LIPID, TSH, BNP, CMP, T7 #### [facility] [address], [place] [address] Dr. Suzie Brooks Uric Acid Dihydrate Normal [facility] Comment on above: Performed By: #### U DINA, LIPID, TSH, BNP, CMP, T7 #### [facility] [address], [place] [address] Dr. Suzie Brooks Weight 12 mg Normal [facility] Comment on above: Performed By: #### U DINA, LIPID, TSH, BNP, CMP, T7 #### [facility] [address] [place], [place] [address] Dr. Suzie Brooks Xanthine Normal [facility] Comment on above: Performed By: #### U DINA, LIPID, TSH, BNP, CMP, T7 #### [facility] [address], [place] [address] Dr. Suzie Brooks XR KUB 1 VIEWon [...] by: RAFAEL GRAVES Date: 2021-11-12 13:18 Normal [facility] XR CHEST 2 Von 11-08-2021 XR CHEST [...] CARLOS GROSS Date: 2021-11-08 15:50 Normal [facility] CBC AUTO DIFFon 11-07-2021 BASO # 0.0 103/ul Normal 0.0-0.1 [facility] Comment on above: Performed By: #### U DINA, LIPID, TSH, BNP, CMP, T7 #### [facility] [address] [place] [address] Dr. Suzie Brooks Basophils/100 WBC (Bld) 0.2 % Normal 0.2-2.0 [facility] Comment on above: Performed By: #### U DINA, LIPID, TSH, BNP, CMP, T7 #### [facility] [address] [place] [address] Dr. Suzie Brooks EO # 0.0 103/ul Normal 0.0-0.7 [facility] Comment on above: Performed By: #### U DINA, LIPID, TSH, BNP, CMP, T7 #### [facility] [address] [place] [address] Dr. Suzie Brooks Eosinophils/100 WBC (Bld) 0.0 % Critically low 0.9-7.0 [facility] Comment on above: Performed By: #### U DINA, LIPID, TSH, BNP, CMP, T7 #### [facility] [address] [place] [address] Dr. Suzie Brooks Erythrocyte distribution width (RBC) [Ratio] 14.0 % Normal 11.0-15.0 [facility] Comment on above: Performed By: #### U DINA, LIPID, TSH, BNP, CMP, T7 #### [facility] [address] [place] [address] Dr. Suzie Brooks Hematocrit (Bld) [Volume fraction] 41.8 % Critically low 42.0-54.0 [facility] Comment on above: Performed By: #### U DINA, LIPID, TSH, BNP, CMP, T7 #### [facility] [address] [address] [address] Suzie Brooks Hemoglobin (Bld) [Mass/Vol] 13.7 g/dL Critically low 14.0-18.0 [facility] Comment on above: Performed By: #### U DINA, LIPID, TSH, BNP, CMP, T7 #### [facility] [address] [place] [address] Dr. Suzie Brooks IG # 0.14 10e3/ul Critically high 0.00-0.03 [facility] Comment on above: Performed By: #### U DINA, LIPID, TSH, BNP, CMP, T7 #### [facility] [address] [place] [address] Dr. Suzie Brooks IG % 0.9 % Critically high 0.0-0.5 [facility] Comment on above: Performed By: #### U DINA, LIPID, TSH, BNP, CMP, T7 #### [facility] [address] [place] [address] Dr. Suzie Brooks LYMPH # 1.6 103/ul Normal 1.2-3.8 [facility] Comment on above: Performed By: #### U DINA, LIPID, TSH, BNP, CMP, T7 #### [facility] [address] [place] [address] Dr. Suzie Brooks Lymphocytes/100 WBC (Bld) 10.2 % Critically low 20.5-60.0 [facility] Comment on above: Performed By: #### U DINA, LIPID, TSH, BNP, CMP, T7 #### [facility] [address] [place] [address] Dr. Suzie Brooks MANUAL DIFF REQ NO Normal [facility] Comment on above: Performed By: #### U DINA, LIPID, TSH, BNP, CMP, T7 #### [facility] [address] [place] [address] Dr. Suzie Brooks MCH (RBC) [Entitic mass] 28.8 pg Normal 25.9-34.0 [facility] Comment on above: Performed By: #### U DINA, LIPID, TSH, BNP, CMP, T7 #### [facility] [address] [place] [address] Dr. Suzie Brooks MCHC (RBC) [Mass/Vol] 32.8 g/dL Normal 29.9-35.2 [facility] Comment on above: Performed By: #### U DINA, LIPID, TSH, BNP, CMP, T7 #### [facility] [address] [address] [address] Suzie Brooks MCV (RBC) [Entitic vol] 87.8 fL Normal 80.0-94.0 [facility] Comment on above: Performed By: #### U DINA, LIPID, TSH, BNP, CMP, T7 #### [facility] [address] [address] [address] Suzie Brooks MONO # 1.0 103/ul Critically high 0.3-0.8 [facility] Comment on above: Performed By: #### U DINA, LIPID, TSH, BNP, CMP, T7 #### [facility] [address] [address] [address] Suzie Brooks Monocytes/100 WBC (Bld) 6.6 % Normal 1.7-12.0 [facility] Comment on above: Performed By: #### U DINA, LIPID, TSH, BNP, CMP, T7 #### [facility] [address] [address] [address] Suzie Brooks NEUT # 13.0 103/ul Critically high 1.4-6.5 [facility] Comment on above: Performed By: #### U DINA, LIPID, TSH, BNP, CMP, T7 #### [facility] [address] [address] [address] Suzie Brooks Neutrophils/100 WBC (Bld) 82.1 % Critically high 43.0-75.0 [facility] Comment on above: Performed By: #### U DINA, LIPID, TSH, BNP, CMP, T7 #### [facility] [address] [place] [address] Dr. Suzie Brooks Platelet mean volume (Bld) [Entitic vol] 9.3 fL Critically low 9.5-13.5 [facility] Comment on above: Performed By: #### U DINA, LIPID, TSH, BNP, CMP, T7 #### [facility] [address] [address] [address] Suzie Brooks PLT 301 103/ul Normal 150-450 [facility] Comment on above: Performed By: #### U DINA, LIPID, TSH, BNP, CMP, T7 #### [facility] [address] [address] [address] Suzie Brooks RBC 4.76 106/ul Normal 4.70-6.10 [facility] Comment on above: Performed By: #### U DINA, LIPID, TSH, BNP, CMP, T7 #### [facility] [address] [place] [address] Dr. Suzie Brooks WBC 15.9 103/ul Critically high 4.0-11.0 [facility] Comment on above: Performed By: #### U DINA, LIPID, TSH, BNP, CMP, T7 #### [facility] [address] [place] [address] Dr. Suzie Brooks POINT OF CARE GLUCOSEon 10-11 Glucose [Mass/Vol] 128 mg/dL Critically high 74-106 [facility] Comment on above: Performed By: #### U DINA, LIPID, TSH, BNP, CMP, T7 #### [facility] [address] [place] [address] Dr. Suzie Brooks PROF 14(COMP METB)on 022 Albumin [Mass/Vol] 3.1 g/dL Critically low 3.4-5.0 [facility] Comment on above: Performed By: #### M AG24 #### [facility] [address] [place] [address] Dr. Suzie Brooks Albumin/Globulin [Mass ratio] 0.9 {ratio} Normal [facility] Comment on above: Performed By: #### M AG24 #### [facility] [address] [place] [address] Dr. Suzie Brooks ALP [Catalytic activity/Vol] 52 U/L Normal 46-116 [facility] Comment on above: Performed By: #### M AG24 #### [facility] [address] [place] [address] Dr. Suzie Brooks ALT [Catalytic activity/Vol] 39 U/L Normal 16-63 [facility] Comment on above: Performed By: #### M AG24 #### [facility] [address] [place] [address] Dr. Suzie Brooks Anion gap [Moles/Vol] 14.7 mmol/L Normal [facility] Comment on above: Performed By: #### M AG24 #### [facility] [address] [place] [address] Dr. Suzie Brooks AST [Catalytic activity/Vol] 27 U/L Normal 15-37 [facility] Comment on above: Performed By: #### M AG24 #### [facility] [address] [place] [address] Dr. Suzie Brooks Bilirubin [Mass/Vol] 0.4 mg/dL Normal 0.2-1.3 [facility] Comment on above: Performed By: #### M AG24 #### [facility] [address] [place] [address] Dr. Suzie Brooks Calcium [Mass/Vol] 7.7 mg/dL Critically low 8.5-10.1 [facility] Comment on above: Performed By: #### M AG24 #### [facility] [address] [place] [address] Dr. Suzie Brooks Chloride [Moles/Vol] 104 mmol/L Normal 98-107 [facility] Comment on above: Performed By: #### M AG24 #### [facility] [address] [place] [address] Dr. Suzie Brooks CO2 [Moles/Vol] 23.4 mmol/L Normal 22.0-30.0 [facility] Comment on above: Performed By: #### M AG24 #### [facility] [address] [place] [address] Dr. Suzie Brooks Creatinine [Mass/Vol] 1.03 mg/dL Normal 0.66-1.25 [facility] Comment on above: Performed By: #### M AG24 #### [facility] [address] [place] [address] Dr. Suzie Brooks EGFR-AF UKRAINIAN >60 Normal >=60 [facility] Comment on above: Performed By: #### M AG24 #### [facility] [address] [address] [address] Suzie Brooks EGFR-NON AF UKRAINIAN >60 Normal >=60 [facility] Comment on above: Performed By: #### M AG24 #### [facility] [address] [address] [address] Suzie Brooks Globulin (S) [Mass/Vol] 3.5 g/dL Normal [facility] Comment on above: Performed By: #### M AG24 #### [facility] [address] [address] [address] Suzie Brooks Glucose [Mass/Vol] 142 mg/dL Critically high 74-106 [facility] Comment on above: Performed By: #### M AG24 #### [facility] [address] [address] [address] Suzie Brooks Potassium [Moles/Vol] 4.1 mmol/L Normal 3.4-5.0 [facility] Comment on above: Performed By: #### M AG24 #### [facility] [address] [address] [address] Suzie Brooks Protein [Mass/Vol] 6.6 g/dL Normal 6.1-8.2 [facility] Comment on above: Performed By: #### M AG24 #### [facility] [address] [address] [address] Suzie Brooks Sodium [Moles/Vol] 138 mmol/L Normal 137-145 [facility] Comment on above: Performed By: #### M AG24 #### [facility] [address] [address] [address] Suzie Brooks Urea nitrogen [Mass/Vol] 15.0 mg/dL Normal 7.0-18.0 [facility] Comment on above: Performed By: #### M AG24 #### [facility] [address] [address] [address] Suzie Brooks Urea nitrogen/Creatinine [Mass ratio] 14.6 mg/mg Normal [facility] Comment on above: Performed By: #### M AG24 #### [facility] [address] [address] [address] Suzie Brooks CBC AUTO DIFFon 11-06-2021 BASO # 0.1 103/ul Normal 0.0-0.1 [facility] Comment on above: Performed By: #### U DINA, LIPID, TSH, BNP, CMP, T7 #### [facility] [address] [place] [address] Dr. Suzie Brooks Basophils/100 WBC (Bld) 0.5 % Normal 0.2-2.0 [facility] Comment on above: Performed By: #### U DINA, LIPID, TSH, BNP, CMP, T7 #### [facility] [address] [place] [address] Dr. Suzie Brooks EO # 0.3 103/ul Normal 0.0-0.7 [facility] Comment on above: Performed By: #### U DINA, LIPID, TSH, BNP, CMP, T7 #### [facility] [address] [place] [address] Dr. Suzie Brooks Eosinophils/100 WBC (Bld) 2.1 % Normal 0.9-7.0 [facility] Comment on above: Performed By: #### U DINA, LIPID, TSH, BNP, CMP, T7 #### [facility] [address] [place] [address] Dr. Suzie Brooks Erythrocyte distribution width (RBC) [Ratio] 13.8 % Normal 11.0-15.0 [facility] Comment on above: Performed By: #### U DINA, LIPID, TSH, BNP, CMP, T7 #### [facility] [address] [place] [address] Dr. Suzie Brooks Hematocrit (Bld) [Volume fraction] 46.9 % Normal 42.0-54.0 [facility] Comment on above: Performed By: #### U DINA, LIPID, TSH, BNP, CMP, T7 #### [facility] [address] [place] [address] Dr. Suzie Brooks Hemoglobin (Bld) [Mass/Vol] 15.4 g/dL Normal 14.0-18.0 [facility] Comment on above: Performed By: #### U DINA, LIPID, TSH, BNP, CMP, T7 #### [facility] [address] [place] [address] Dr. Suzie Brooks IG # 0.05 10e3/ul Critically high 0.00-0.03 [facility] Comment on above: Performed By: #### U DINA, LIPID, TSH, BNP, CMP, T7 #### [facility] [address] [place] [address] Dr. Suzie Brooks IG % 0.4 % Normal 0.0-0.5 [facility] Comment on above: Performed By: #### U DINA, LIPID, TSH, BNP, CMP, T7 #### [facility] [address] [place] [address] Dr. Suzie Brooks LYMPH # 2.8 103/ul Normal 1.2-3.8 [facility] Comment on above: Performed By: #### U DINA, LIPID, TSH, BNP, CMP, T7 #### [facility] [address] [place] [address] Dr. Suzie Brooks Lymphocytes/100 WBC (Bld) 22.5 % Normal 20.5-60.0 [facility] Comment on above: Performed By: #### U DINA, LIPID, TSH, BNP, CMP, T7 #### [facility] [address] [place] [address] Dr. Suzie Brooks MANUAL DIFF REQ NO Normal [facility] Comment on above: Performed By: #### U DINA, LIPID, TSH, BNP, CMP, T7 #### [facility] [address] [place] [address] Dr. Suzie Brooks MCH (RBC) [Entitic mass] 28.6 pg Normal 25.9-34.0 [facility] Comment on above: Performed By: #### U DINA, LIPID, TSH, BNP, CMP, T7 #### [facility] [address] [place] [address] Dr. Suzie Brooks MCHC (RBC) [Mass/Vol] 32.8 g/dL Normal 29.9-35.2 [facility] Comment on above: Performed By: #### U DINA, LIPID, TSH, BNP, CMP, T7 #### [facility] [address] [place] [address] Dr. Suzie Brooks MCV (RBC) [Entitic vol] 87.0 fL Normal 80.0-94.0 [facility] Comment on above: Performed By: #### U DINA, LIPID, TSH, BNP, CMP, T7 #### [facility] [address] [address] [address] Suzie Brooks MONO # 0.9 103/ul Critically high 0.3-0.8 [facility] Comment on above: Performed By: #### U DINA, LIPID, TSH, BNP, CMP, T7 #### [facility] [address] [place] [address] Dr. Suzie Brooks Monocytes/100 WBC (Bld) 6.9 % Normal 1.7-12.0 [facility] Comment on above: Performed By: #### U DINA, LIPID, TSH, BNP, CMP, T7 #### [facility] [address] [place] [address] Dr. Suzie Brooks NEUT # 8.4 103/ul Critically high 1.4-6.5 [facility] Comment on above: Performed By: #### U DINA, LIPID, TSH, BNP, CMP, T7 #### [facility] [address] [place] [address] Dr. Suzie Brooks Neutrophils/100 WBC (Bld) 67.6 % Normal 43.0-75.0 [facility] Comment on above: Performed By: #### U DINA, LIPID, TSH, BNP, CMP, T7 #### [facility] [address] [place] [address] Dr. Suzie Brooks Platelet mean volume (Bld) [Entitic vol] 9.6 fL Normal 9.5-13.5 [facility] Comment on above: Performed By: #### U DINA, LIPID, TSH, BNP, CMP, T7 #### [facility] [address] [place] [address] Dr. Suzie Brooks PLT 284 103/ul Normal 150-450 [facility] Comment on above: Performed By: #### U DINA, LIPID, TSH, BNP, CMP, T7 #### [facility] [address] [place] [address] Dr. Suzie Brooks RBC 5.39 106/ul Normal 4.70-6.10 [facility] Comment on above: Performed By: #### U DINA, LIPID, TSH, BNP, CMP, T7 #### [facility] [address] [place] [address] Dr. Suzie Brooks WBC 12.5 103/ul Critically high 4.0-11.0 [facility] Comment on above: Performed By: #### U DINA, LIPID, TSH, BNP, CMP, T7 #### [facility] [address] [place] [address] Dr. Suzie Brooks CULTURE BLOODon 11-06-2021 Microscopic examination of blood, culture Culture Observations: NO GROWTH AT 5 DAYS. Normal [facility] Comment on above: Performed By: #### M AG24 #### [facility] [address] [place] [address] Dr. Suzie Brooks CULTURE URINEon 11-06-2021 CULTURE URINE Culture Observations : NO GROWTH. Normal [facility] Comment on above: Performed By: #### M AG24 #### [facility] [address] [place] [address] Dr. Suzie Brooks [facility]10 SARS-CoV-2 (COVID-19) RNA SUKHJINDER+probe Ql (Unsp spec) Not detected Normal NOT DETECTED [facility] Comment on above: Result Comment: When diagnostic testing is negative, the possibility of a false negative should be considered in the context of a patient's recent exposures and the presence of clinical signs and symptoms consistent with SARS-CoV-2. This test is not yet approved or cleared by the [place] Food and Drug Administration (FDA). This test was developed by [employer], [place], [place]. The performance characteristics of this test were validated by [facility]. The results are not intended to be used as the sole means for clinical diagnosis or patient management decisions. [facility] is authorized under Clinical Laboratory Improvement Amendments [...] for this test is supported by the Vp Sales of Health and Human Service's declaration that [...] DINA, LIPID, TSH, BNP, CMP, T7 #### [facility] [address] [place] [address] Dr. Suzie Brooks ER URINE PROFILEon 2 Bilirubin Ql (U) Negative Normal NEGATIVE [facility] Comment on above: Performed By: #### U DINA, LIPID, TSH, BNP, CMP, T7 #### [facility] [address] [place] [address] Dr. Suzie Brooks Clarity (U) CLEAR Normal CLEAR [facility] Comment on above: Performed By: #### U DINA, LIPID, TSH, BNP, CMP, T7 #### [facility] [address] [place] [address] Dr. Suzie Brooks Color (U) YELLOW Normal YELLOW [facility] Comment on above: Performed By: #### U DINA, LIPID, TSH, BNP, CMP, T7 #### [facility] [address] [place] [address] Dr. Suzie Brooks ERUAHD A micrscopic examina tion will be performed if indicated. Normal [facility] Comment on above: Performed By: #### U DINA, LIPID, TSH, BNP, CMP, T7 #### [facility] [address] [place] [address] Dr. Suzie Brooks Glucose Ql (U) Negative Normal NEGATIVE [facility] Comment on above: Performed By: #### U DINA, LIPID, TSH, BNP, CMP, T7 #### [facility] [address] [address] [address] Suzie Brooks Hemoglobin Ql (U) LARGE Abnormal NEGATIVE [facility] Comment on above: Performed By: #### U DINA, LIPID, TSH, BNP, CMP, T7 #### [facility] [address] [address] [address] Suzie Brooks Ketones Ql (U) Negative Normal NEGATIVE [facility] Comment on above: Performed By: #### U DINA, LIPID, TSH, BNP, CMP, T7 #### [facility] [address] [address] [address] Suzie Brooks LEUKOCYTES TRACE Abnormal NEGATIVE [facility] Comment on above: Performed By: #### U DINA, LIPID, TSH, BNP, CMP, T7 #### [facility] [address] [place] [address] Dr. Suzie Brooks Nitrite Ql (U) Negative Normal NEGATIVE [facility] Comment on above: Performed By: #### U DINA, LIPID, TSH, BNP, CMP, T7 #### [facility] [address] [place] [address] Dr. Suzie Brooks pH (U) 5.0 [pH] Normal 5-9 [facility] Comment on above: Performed By: #### U DINA, LIPID, TSH, BNP, CMP, T7 #### [facility] [address] [address] [address] Suzie Brooks Protein (U) [Mass/Vol] 100 mg/dL Abnormal NEGATIVE/ TRACE [facility] Comment on above: Performed By: #### U DINA, LIPID, TSH, BNP, CMP, T7 #### [facility] [address] [place] [address] Dr. Suzie Brooks SPEC GRAVITY 1.030 Abnormal 1.005-<=1.02 5 [facility] Comment on above: Performed By: #### U DINA, LIPID, TSH, BNP, CMP, T7 #### [facility] [address] [place] [address] Dr. Suzie Brooks UR MICRO IND INDICATED Normal [facility] Comment on above: Performed By: #### U DINA, LIPID, TSH, BNP, CMP, T7 #### [facility] [address] [address] [address] Suzie Brooks Urobilinogen Qn (U) 0.2 {Behzad'U}/dL Normal 0.2 - 1. 0 [facility] Comment on above: Performed By: #### U DINA, LIPID, TSH, BNP, CMP, T7 #### [facility] [address] [address] [address] Suzie Brooks LACTATE/LACTIC ACIDon 2021 Lactate [Moles/Vol] 1.0 mmol/L Normal 0.7-2.0 [facility] Comment on above: Performed By: #### U DINA, LIPID, TSH, BNP, CMP, T7 #### [facility] [address] [place] [address] Dr. Suzie Brooks PROF 14(COMP METB)on 022 Albumin [Mass/Vol] 3.8 g/dL Normal 3.4-5.0 [facility] Comment on above: Performed By: #### U DINA, LIPID, TSH, BNP, CMP, T7 #### [facility] [address] [address] [address] Suzie Brooks Albumin/Globulin [Mass ratio] 1.0 {ratio} Normal [facility] Comment on above: Performed By: #### U DINA, LIPID, TSH, BNP, CMP, T7 #### [facility] [address] [address] [address] Suzie Brooks ALP [Catalytic activity/Vol] 66 U/L Normal 46-116 [facility] Comment on above: Performed By: #### U DINA, LIPID, TSH, BNP, CMP, T7 #### [facility] [address] [address] [address] Suzie Brooks ALT [Catalytic activity/Vol] 52 U/L Normal 16-63 [facility] Comment on above: Performed By: #### U DINA, LIPID, TSH, BNP, CMP, T7 #### [facility] [address] [address] [address] Suzie Brooks Anion gap [Moles/Vol] 14.7 mmol/L Normal [facility] Comment on above: Performed By: #### U DINA, LIPID, TSH, BNP, CMP, T7 #### [facility] [address] [address] [address] Suzie Brooks AST [Catalytic activity/Vol] 40 U/L Critically high 15-37 [facility] Comment on above: Performed By: #### U DINA, LIPID, TSH, BNP, CMP, T7 #### [facility] [address] [address] [address] Suzie Brooks Bilirubin [Mass/Vol] 0.6 mg/dL Normal 0.2-1.3 [facility] Comment on above: Performed By: #### U DINA, LIPID, TSH, BNP, CMP, T7 #### [facility] [address] [address] [address] Suzie Brooks Calcium [Mass/Vol] 8.2 mg/dL Critically low 8.5-10.1 [facility] Comment on above: Performed By: #### U DINA, LIPID, TSH, BNP, CMP, T7 #### [facility] [address] [address] [address] Suzie Brooks Chloride [Moles/Vol] 102 mmol/L Normal 98-107 [facility] Comment on above: Performed By: #### U DINA, LIPID, TSH, BNP, CMP, T7 #### [facility] [address] [address] [address] Suzie Brooks CO2 [Moles/Vol] 27.4 mmol/L Normal 22.0-30.0 [facility] Comment on above: Performed By: #### U DINA, LIPID, TSH, BNP, CMP, T7 #### [facility] [address] [address] [address] Suzie Brooks Creatinine [Mass/Vol] 1.05 mg/dL Normal 0.66-1.25 [facility] Comment on above: Performed By: #### U DINA, LIPID, TSH, BNP, CMP, T7 #### [facility] [address] [address] [address] Suzie Brooks EGFR-AF UKRAINIAN >60 Normal >=60 [facility] Comment on above: Performed By: #### U DINA, LIPID, TSH, BNP, CMP, T7 #### [facility] [address] [address] [address] Suzie Brooks EGFR-NON AF UKRAINIAN >60 Normal >=60 [facility] Comment on above: Performed By: #### U DINA, LIPID, TSH, BNP, CMP, T7 #### [facility] [address] [address] [address] Suzie Brooks Globulin (S) [Mass/Vol] 3.7 g/dL Normal [facility] Comment on above: Performed By: #### U DINA, LIPID, TSH, BNP, CMP, T7 #### [facility] [address] [address] [address] Suzie Brooks Glucose [Mass/Vol] 124 mg/dL Critically high 74-106 [facility] Comment on above: Performed By: #### U DINA, LIPID, TSH, BNP, CMP, T7 #### [facility] [address] [address] [address] Suzie Brooks Potassium [Moles/Vol] 4.1 mmol/L Normal 3.4-5.0 [facility] Comment on above: Performed By: #### U DINA, LIPID, TSH, BNP, CMP, T7 #### [facility] [address] [address] [address] Suzie Brooks Protein [Mass/Vol] 7.5 g/dL Normal 6.1-8.[address] [facility] Comment on above: Performed By: #### U DINA, LIPID, TSH, BNP, CMP, T7 #### [facility] [address] [address] [address] Suzie Brooks Sodium [Moles/Vol] 140 mmol/L Normal 137-[address] [facility] Comment on above: Performed By: #### U DINA, LIPID, TSH, BNP, CMP, T7 #### [facility] [address] [place] [address] Dr. Suzie Brooks Urea nitrogen [Mass/Vol] 16.0 mg/dL Normal 7.0-18.0 [facility] Comment on above: Performed By: #### U DINA, LIPID, TSH, BNP, CMP, T7 #### [facility] [address] [address] [address] Suzie Brooks Urea nitrogen/Creatinine [Mass ratio] 15.2 mg/mg Normal [facility] Comment on above: Performed By: #### U DINA, LIPID, TSH, BNP, CMP, T7 #### [facility] [address] [place] [address] Dr. Suzie Brooks URINE MICROSCOPIC ONLYon BACTERIA SMALL Abnormal NONE SEEN [facility] Comment on above: Performed By: #### U DINA, LIPID, TSH, BNP, CMP, T7 #### [facility] [address] [place] [address] Dr. Suzie Brooks Bacteria identified Cx Nom (U) INDICATED Normal [facility] Comment on above: Performed By: #### U DINA, LIPID, TSH, BNP, CMP, T7 #### [facility] [address] [place] [address] Dr. Suzie Brooks CAST NONE SEEN Normal NONE SEEN [facility] Comment on above: Performed By: #### U DINA, LIPID, TSH, BNP, CMP, T7 #### [facility] [address] [place] [address] Dr. Suzie Brooks Crystals LM Nom (Urine sed) NONE SEEN Normal NONE SEEN [facility] Comment on above: Performed By: #### U DINA, LIPID, TSH, BNP, CMP, T7 #### [facility] [address] [place] [address] Dr. Suzie Brooks Epithelial cells LM Ql (Urine sed) RARE Normal NONE SEEN /RARE [facility] Comment on above: Performed By: #### U DINA, LIPID, TSH, BNP, CMP, T7 #### [facility] [address] [place] [address] Dr. Suzie Brooks MUCOUS NONE SEEN Normal NONE SEEN [facility] Comment on above: Performed By: #### U DINA, LIPID, TSH, BNP, CMP, T7 #### [facility] [address] [place] [address] Dr. Suzie Brooks RBC 50-75 Abnormal 0-2 [facility] Comment on above: Performed By: #### U DINA, LIPID, TSH, BNP, CMP, T7 #### [facility] [address] [place], [place] [address] Dr. Suzie Brooks WBC 20-50 Abnormal NONE SEEN [facility] Comment on above: Performed By: #### U DINA, LIPID, TSH, BNP, CMP, T7 #### [facility] [address] [place], [place] [address] Dr. Suzie Brooks XR KUB 1 VIEWon [...] BEHZAD SANTOS Date: 2021-11-06 21:58 Normal [facility] XR KUB 1 VIEW EXAMINATION: XR KUB [...] RAFAEL GRAVES Date: 2021-11-06 08:06 Normal [facility] CBC AUTO DIFFon 11-05-2021 BASO # 0.1 103/ul Normal 0.0-0.1 [facility] Comment on above: Performed By: #### U DINA, LIPID, TSH, BNP, CMP, T7 #### [facility] [id number] Suzie Brooks Basophils/100 WBC (Bld) 0.6 % Normal 0.2-2.0 [facility] Comment on above: Performed By: #### U DINA, LIPID, TSH, BNP, CMP, T7 #### [facility] [address] [place] [address] Dr. Suzie Brooks EO # 0.3 103/ul Normal 0.0-0.7 [facility] Comment on above: Performed By: #### U DINA, LIPID, TSH, BNP, CMP, T7 #### [facility] [address] [place] [address] Dr. Suzie Brooks Eosinophils/100 WBC (Bld) 2.2 % Normal 0.9-7.0 [facility] Comment on above: Performed By: #### U DINA, LIPID, TSH, BNP, CMP, T7 #### [facility] [address] [place] [address] Dr. Suzie Brooks Erythrocyte distribution width (RBC) [Ratio] 13.7 % Normal 11.0-15.0 [facility] Comment on above: Performed By: #### U DINA, LIPID, TSH, BNP, CMP, T7 #### [facility] [address] [place] [address] Dr. Suzie Brooks Hematocrit (Bld) [Volume fraction] 49.0 % Normal 42.0-54.0 [facility] Comment on above: Performed By: #### U DINA, LIPID, TSH, BNP, CMP, T7 #### [facility] [address] [place] [address] Dr. Suzie Brooks Hemoglobin (Bld) [Mass/Vol] 15.9 g/dL Normal 14.0-18.0 [facility] Comment on above: Performed By: #### U DINA, LIPID, TSH, BNP, CMP, T7 #### [facility] [address] [place] [address] Dr. Suzie Brooks IG # 0.07 10e3/ul Critically high 0.00-0.03 [facility] Comment on above: Performed By: #### U DINA, LIPID, TSH, BNP, CMP, T7 #### [facility] [address] [place] [address] Dr. Suzie Brooks IG % 0.5 % Normal 0.0-0.5 [facility] Comment on above: Performed By: #### U DINA, LIPID, TSH, BNP, CMP, T7 #### [facility] [address] [place] [address] Dr. Suzie Brooks LYMPH # 3.1 103/ul Normal 1.2-3.8 [facility] Comment on above: Performed By: #### U DINA, LIPID, TSH, BNP, CMP, T7 #### [facility] [address] [place] [address] Dr. Suzie Brooks Lymphocytes/100 WBC (Bld) 23.8 % Normal 20.5-60.0 [facility] Comment on above: Performed By: #### U DINA, LIPID, TSH, BNP, CMP, T7 #### [facility] [address] [place] [address] Dr. Suzie Brooks MANUAL DIFF REQ NO Normal [facility] Comment on above: Performed By: #### U DINA, LIPID, TSH, BNP, CMP, T7 #### [facility] Laboratory [address] [place] [address] Dr. Suzie Brooks MCH (RBC) [Entitic mass] 28.8 pg Normal 25.9-34.0 [facility] Comment on above: Performed By: #### U DINA, LIPID, TSH, BNP, CMP, T7 #### [facility] [address] [place] [address] Dr. Suzie Brooks MCHC (RBC) [Mass/Vol] 32.4 g/dL Normal 29.9-35.2 [facility] Comment on above: Performed By: #### U DINA, LIPID, TSH, BNP, CMP, T7 #### [facility] [address] [place] [address] Dr. Suzie Brooks MCV (RBC) [Entitic vol] 88.8 fL Normal 80.0-94.0 [facility] Comment on above: Performed By: #### U DINA, LIPID, TSH, BNP, CMP, T7 #### [facility] [address] [place] [address] Dr. Suzie Brooks MONO # 0.9 103/ul Critically high 0.3-0.8 [facility] Comment on above: Performed By: #### U DINA, LIPID, TSH, BNP, CMP, T7 #### [facility] [address] [address] [address] Suzie Brooks Monocytes/100 WBC (Bld) 6.8 % Normal 1.7-12.0 [facility] Comment on above: Performed By: #### U DINA, LIPID, TSH, BNP, CMP, T7 #### [facility] [address] [address] [address] Suzie Brooks NEUT # 8.7 103/ul Critically high 1.4-6.5 [facility] Comment on above: Performed By: #### U DINA, LIPID, TSH, BNP, CMP, T7 #### [facility] [address] [place] [address] Dr. Suzie Brooks Neutrophils/100 WBC (Bld) 66.1 % Normal 43.0-75.0 [facility] Comment on above: Performed By: #### U DINA, LIPID, TSH, BNP, CMP, T7 #### [facility] [address] [address] [address] Suzie Brooks Platelet mean volume (Bld) [Entitic vol] 9.4 fL Critically low 9.5-13.5 [facility] Comment on above: Performed By: #### U DINA, LIPID, TSH, BNP, CMP, T7 #### [facility] [address] [place] [address] Dr. Suzie Brooks PLT 278 103/ul Normal 150-450 [facility] Comment on above: Performed By: #### U DINA, LIPID, TSH, BNP, CMP, T7 #### [facility] [address] [place] [address] Dr. Suzie Brooks RBC 5.52 106/ul Normal 4.70-6.10 [facility] Comment on above: Performed By: #### U DINA, LIPID, TSH, BNP, CMP, T7 #### [facility] [address] [place] [address] Dr. Suzie Brooks WBC 13.1 103/ul Critically high 4.0-11.0 [facility] Comment on above: Performed By: #### U DINA, LIPID, TSH, BNP, CMP, T7 #### [facility] [address] [place], [place] [address] ABD/PELVIS WO CONon [...] RAFAEL GRAVES Date: 2021-11-05 11:46 Normal [facility] CULTURE URINEon 11-05-2021 CULTURE URINE Culture Observations : No growth Normal [facility] Comment on above: Performed By: #### M AG24 #### [facility] [address] [place], [place] [address] Dr. Suzie Brooks ER URINE PROFILEon 2 Bilirubin Ql (U) Negative Normal NEGATIVE [facility] Comment on above: Performed By: #### C VDTBH #### [facility] [address] [place] [address] Dr. Suzie Brooks Clarity (U) CLEAR Normal CLEAR [facility] Comment on above: Performed By: #### C VDTBH #### [facility] [address] [place] [address] Dr. Suzie Brooks Color (U) DK. YELLOW Normal YELLOW [facility] Comment on above: Performed By: #### C VDTBH #### [facility] [address] [place] [address] Dr. Suzie Brooks ERUAHD A micrscopic examina tion will be performed if indicated. Normal [facility] Comment on above: Performed By: #### C VDTBH #### [facility] [address] [place] [address] Dr. Suzie Brooks Glucose Ql (U) Negative Normal NEGATIVE [facility] Comment on above: Performed By: #### C VDTBH #### [facility] [address] [place] [address] Dr. Suzie Brooks Hemoglobin Ql (U) LARGE Abnormal NEGATIVE [facility] Comment on above: Performed By: #### C VDTBH #### [facility] [address] [place] [address] Dr. Suzie Brooks Ketones Ql (U) Negative Normal NEGATIVE [facility] Comment on above: Performed By: #### C VDTBH #### [facility] [address] [place] [address] Dr. Suzie Brooks LEUKOCYTES Negative Normal NEGATIVE [facility] Comment on above: Performed By: #### C VDTBH #### [facility] [address] [place] [address] Dr. Suzie Brooks Nitrite Ql (U) Negative Normal NEGATIVE [facility] Comment on above: Performed By: #### C VDTBH #### [facility] [address] [place] [address] Dr. Suzie Brooks pH (U) 5.0 [pH] Normal 5-9 [facility] Comment on above: Performed By: #### C VDTBH #### [facility] [address] [place] [address] Dr. Suzie Brooks Protein (U) [Mass/Vol] 100 mg/dL Abnormal NEGATIVE/ TRACE [facility] Comment on above: Performed By: #### C VDTBH #### [facility] [address] [place] [address] Dr. Suzie Brooks SPEC GRAVITY >=1.030 Abnormal 1.005-<=1.02 5 [facility] Comment on above: Performed By: #### C VDTBH #### [facility] [address] [place] [address] Dr. Suzie Brooks UR MICRO IND INDICATED Normal [facility] Comment on above: Performed By: #### C VDTBH #### [facility] [address] [place] [address] Dr. Suzie Brooks Urobilinogen Qn (U) 0.2 {Behzad'U}/dL Normal 0.2 - 1. 0 [facility] Comment on above: Performed By: #### C VDTBH #### [facility] [address] [place] [address] Dr. Suzie Brooks PROF 14(COMP METB)on 022 Albumin [Mass/Vol] 3.9 g/dL Normal 3.4-5.0 [facility] Comment on above: Performed By: #### U DINA, LIPID, TSH, BNP, CMP, T7 #### [facility] [address] [place] [address] Dr. Suzie Brooks Albumin/Globulin [Mass ratio] 1.1 {ratio} Normal [facility] Comment on above: Performed By: #### U DINA, LIPID, TSH, BNP, CMP, T7 #### [facility] [address] [place] [address] Dr. Suzie Brooks ALP [Catalytic activity/Vol] 64 U/L Normal 46-116 [facility] Comment on above: Performed By: #### U DINA, LIPID, TSH, BNP, CMP, T7 #### [facility] [address] [address] [address] Suzie Brooks ALT [Catalytic activity/Vol] 57 U/L Normal 16-63 [facility] Comment on above: Performed By: #### U DINA, LIPID, TSH, BNP, CMP, T7 #### [facility] [address] [address] [address] Suzie Brooks Anion gap [Moles/Vol] 14.4 mmol/L Normal [facility] Comment on above: Performed By: #### U DINA, LIPID, TSH, BNP, CMP, T7 #### [facility] [address] [address] [address] Suzie Brooks AST [Catalytic activity/Vol] 51 U/L Critically high 15-37 [facility] Comment on above: Performed By: #### U DINA, LIPID, TSH, BNP, CMP, T7 #### [facility] [address] [address] [address] Suzie Brooks Bilirubin [Mass/Vol] 0.8 mg/dL Normal 0.2-1.3 [facility] Comment on above: Performed By: #### U DINA, LIPID, TSH, BNP, CMP, T7 #### [facility] [address] [address] [address] Suzie Brooks Calcium [Mass/Vol] 8.5 mg/dL Normal 8.5-10.1 [facility] Comment on above: Performed By: #### U DINA, LIPID, TSH, BNP, CMP, T7 #### [facility] [address] [address] [address] Suzie Brooks Chloride [Moles/Vol] 103 mmol/L Normal 98-107 [facility] Comment on above: Performed By: #### U DINA, LIPID, TSH, BNP, CMP, T7 #### [facility] [address] [address] [address] Suzie Brooks CO2 [Moles/Vol] 26.8 mmol/L Normal 22.0-30.0 [facility] Comment on above: Performed By: #### U DINA, LIPID, TSH, BNP, CMP, T7 #### [facility] [address] [address] [address] Suzie Brooks Creatinine [Mass/Vol] 0.98 mg/dL Normal 0.66-1.25 [facility] Comment on above: Performed By: #### U DINA, LIPID, TSH, BNP, CMP, T7 #### [facility] [address] [address] [address] Suzie Brooks EGFR-AF UKRAINIAN >60 Normal >=60 [facility] Comment on above: Performed By: #### U DINA, LIPID, TSH, BNP, CMP, T7 #### [facility] [address] [place] [address] Dr. Suzie Brooks EGFR-NON AF UKRAINIAN >60 Normal >=60 [facility] Comment on above: Performed By: #### U DINA, LIPID, TSH, BNP, CMP, T7 #### [facility] [address] [place] [address] Dr. Suzie Brooks Globulin (S) [Mass/Vol] 3.7 g/dL Normal [facility] Comment on above: Performed By: #### U DINA, LIPID, TSH, BNP, CMP, T7 #### [facility] [address] [place] [address] Dr. Suzie Brooks Glucose [Mass/Vol] 118 mg/dL Critically high 74-106 [facility] Comment on above: Performed By: #### U DINA, LIPID, TSH, BNP, CMP, T7 #### [facility] [address] [place] [address] Dr. Suzie Brooks Potassium [Moles/Vol] 4.2 mmol/L Normal 3.4-5.0 [facility] Comment on above: Performed By: #### U DINA, LIPID, TSH, BNP, CMP, T7 #### [facility] [address] [place] [address] Dr. Suzie Brooks Protein [Mass/Vol] 7.6 g/dL Normal 6.1-8.2 [facility] Comment on above: Performed By: #### U DINA, LIPID, TSH, BNP, CMP, T7 #### [facility] [address] [place] [address] Dr. Suzie Brooks Sodium [Moles/Vol] 140 mmol/L Normal 137-[address] [facility] Comment on above: Performed By: #### U DINA, LIPID, TSH, BNP, CMP, T7 #### [facility] [address] [place] [address] Dr. Suzie Brooks Urea nitrogen [Mass/Vol] 14.0 mg/dL Normal 7.0-18.0 [facility] Comment on above: Performed By: #### U DINA, LIPID, TSH, BNP, CMP, T7 #### [facility] [address] [place] [address] Dr. Suzie Brooks Urea nitrogen/Creatinine [Mass ratio] 14.3 mg/mg Normal [facility] Comment on above: Performed By: #### U DINA, LIPID, TSH, BNP, CMP, T7 #### [facility] [address] [place] [address] Dr. Suzie Brooks URINE MICROSCOPIC ONLYon BACTERIA MODERATE Abnormal NONE SEEN [facility] Comment on above: Performed By: #### C VDTBH #### [facility] [address] [place] [address] Dr. Suzie Brooks Bacteria identified Cx Nom (U) INDICATED Normal [facility] Comment on above: Performed By: #### C VDTBH #### [facility] [address] [place] [address] Dr. Suzie Brooks CAST SEEN Abnormal NONE SEEN [facility] Comment on above: Performed By: #### C VDTBH #### [facility] [address] [place] [address] Dr. Suzie Brooks Crystals LM Nom (Urine sed) NONE SEEN Normal NONE SEEN [facility] Comment on above: Performed By: #### C VDTBH #### [facility] [address] [place] [address] Dr. Suzie Brooks Epithelial cells LM Ql (Urine sed) RARE Normal NONE SEEN /RARE [facility] Comment on above: Performed By: #### C VDTBH #### [facility] [address] [place] [address] Dr. Suzie Brooks HYALINE CAST RARE Normal [facility] Comment on above: Performed By: #### C VDTBH #### [facility] [address] [address] [address] Suzie Brooks MUCOUS NONE SEEN Normal NONE SEEN [facility] Comment on above: Performed By: #### C VDTBH #### [facility] [address] [address] [address] Suzie Brooks RBC (U) [#/Vol] /uL Abnormal 0-2 [facility] Comment on above: Performed By: #### C VDTBH #### [facility] [address] [address] [address] Suzie Brooks WBC NONE SEEN Normal NONE SEEN [facility] Comment on above: Performed By: #### C VDTBH #### [facility] [address] [place] [address] Dr. Suzie Brooks XR KUB 1 VIEWon [...] BEHZAD CARRASQUILLO Date: 2021-11-01 12:07 Normal [facility] CBC AUTO DIFFon 10-26-2021 BASO # 0.1 103/ul Normal 0.0-0.1 [facility] Comment on above: Performed By: #### U DINA, LIPID, TSH, BNP, CMP, T7 #### [facility] [address] [address] [address] Suzie Brooks Basophils/100 WBC (Bld) 0.7 % Normal 0.2-2.0 [facility] Comment on above: Performed By: #### U DINA, LIPID, TSH, BNP, CMP, T7 #### [facility] [address] [place] [address] Dr. Suzie Brooks EO # 0.2 103/ul Normal 0.0-0.7 [facility] Comment on above: Performed By: #### U DINA, LIPID, TSH, BNP, CMP, T7 #### [facility] [address] [place] [address] Dr. Suzie Brooks Eosinophils/100 WBC (Bld) 1.5 % Normal 0.9-7.0 [facility] Comment on above: Performed By: #### U DINA, LIPID, TSH, BNP, CMP, T7 #### [facility] [address] [place] [address] Dr. Suzie Brooks Erythrocyte distribution width (RBC) [Ratio] 13.9 % Normal 11.0-15.0 [facility] Comment on above: Performed By: #### U DINA, LIPID, TSH, BNP, CMP, T7 #### [facility] [address] [place] [address] Dr. Suzie Brooks Hematocrit (Bld) [Volume fraction] 47.5 % Normal 42.0-54.0 [facility] Comment on above: Performed By: #### U DINA, LIPID, TSH, BNP, CMP, T7 #### [facility] [address] [place] [address] Dr. Suzie Brooks Hemoglobin (Bld) [Mass/Vol] 15.5 g/dL Normal 14.0-18.0 [facility] Comment on above: Performed By: #### U DINA, LIPID, TSH, BNP, CMP, T7 #### [facility] [address] [place] [address] Dr. Suzie Brooks IG # 0.06 10e3/ul Critically high 0.00-0.03 [facility] Comment on above: Performed By: #### U DINA, LIPID, TSH, BNP, CMP, T7 #### [facility] [address] [place] [address] Dr. Suzie Brooks IG % 0.5 % Normal 0.0-0.5 [facility] Comment on above: Performed By: #### U DINA, LIPID, TSH, BNP, CMP, T7 #### [facility] [address] [address] [address] Suzie Brooks LYMPH # 2.6 103/ul Normal 1.2-3.8 [facility] Comment on above: Performed By: #### U DINA, LIPID, TSH, BNP, CMP, T7 #### [facility] [address] [address] [address] Suzie Brooks Lymphocytes/100 WBC (Bld) 23.1 % Normal 20.5-60.0 [facility] Comment on above: Performed By: #### U DINA, LIPID, TSH, BNP, CMP, T7 #### [facility] [address] [address] [address] Suzie Brooks MANUAL DIFF REQ NO Normal [facility] Comment on above: Performed By: #### U DINA, LIPID, TSH, BNP, CMP, T7 #### [facility] [address] [place] [address] Dr. Suzie Brooks MCH (RBC) [Entitic mass] 28.9 pg Normal 25.9-34.0 [facility] Comment on above: Performed By: #### U DINA, LIPID, TSH, BNP, CMP, T7 #### [facility] [address] [place] [address] Dr. Suzie Brooks MCHC (RBC) [Mass/Vol] 32.6 g/dL Normal 29.9-35.2 [facility] Comment on above: Performed By: #### U DINA, LIPID, TSH, BNP, CMP, T7 #### [facility] [address] [address] [address] Suzie Brooks MCV (RBC) [Entitic vol] 88.5 fL Normal 80.0-94.0 [facility] Comment on above: Performed By: #### U DINA, LIPID, TSH, BNP, CMP, T7 #### [facility] [address] [place] [address] Dr. Suzie Brooks MONO # 0.9 103/ul Critically high 0.3-0.8 [facility] Comment on above: Performed By: #### U DINA, LIPID, TSH, BNP, CMP, T7 #### [facility] [address] [address] [address] Suzie Brooks Monocytes/100 WBC (Bld) 7.9 % Normal 1.7-12.0 [facility] Comment on above: Performed By: #### U DINA, LIPID, TSH, BNP, CMP, T7 #### [facility] [address] [address] [address] Suzie Brooks NEUT # 7.4 103/ul Critically high 1.4-6.5 [facility] Comment on above: Performed By: #### U DINA, LIPID, TSH, BNP, CMP, T7 #### [facility] [address] [address] [address] Suzie Brooks Neutrophils/100 WBC (Bld) 66.3 % Normal 43.0-75.0 [facility] Comment on above: Performed By: #### U DINA, LIPID, TSH, BNP, CMP, T7 #### [facility] [address] [place] [address] Dr. Suzie Brooks Platelet mean volume (Bld) [Entitic vol] 9.6 fL Normal 9.5-13.5 [facility] Comment on above: Performed By: #### U DINA, LIPID, TSH, BNP, CMP, T7 #### [facility] [address] [place] [address] Dr. Suzie Brooks PLT 252 103/ul Normal 150-450 [facility] Comment on above: Performed By: #### U DINA, LIPID, TSH, BNP, CMP, T7 #### [facility] [address] [address] [address] Suzie Brooks RBC 5.37 106/ul Normal 4.70-6.10 [facility] Comment on above: Performed By: #### U DINA, LIPID, TSH, BNP, CMP, T7 #### [facility] [address] [place] [address] Dr. Suzie Brooks WBC 11.2 103/ul Critically high 4.0-11.0 [facility] Comment on above: Performed By: #### U DINA, LIPID, TSH, BNP, CMP, T7 #### [facility] [address] [place] [address] Dr. Suzie Brooks [facility]on [facility]09 SARS-CoV-2 (COVID-19) RNA SUKHJINDER+probe Ql (Unsp spec) Not detected Normal NOT DETECTED [facility] Comment on above: Result Comment: This test is not yet approved or cleared by the [place] FDA. When there are no FDA-approved or cleared tests available, and other criteria are met, FDA can make tests available under an emergency access mechanism called an Emergency Use Authorization (EUA). The EUA for this test is supported by the [place] of Health and Human Service's (HHS's) declaration [...] DINA, LIPID, TSH, BNP, CMP, T7 #### [facility] [address] [place] [address] Dr. Suzie Brooks PROF CHEM 8 (BAS METB)on Anion gap [Moles/Vol] 7.7 mmol/L Normal [facility] Comment on above: Performed By: #### C VDTBH #### [facility] [address] [place] [address] Dr. Suzie Brooks Calcium [Mass/Vol] 8.6 mg/dL Normal 8.5-10.[address] [facility] Comment on above: Performed By: #### C VDTBH #### [facility] [address] [place] [address] Dr. Suzie Brooks Chloride [Moles/Vol] 104 mmol/L Normal 98-107 [facility] Comment on above: Performed By: #### C VDTBH #### [facility] [address] [address] [address] Suzie Brooks CO2 [Moles/Vol] 31.8 mmol/L Critically high 22.0-30.0 [facility] Comment on above: Performed By: #### C VDTBH #### [facility] [address] [address] [address] Suzie Brooks Creatinine [Mass/Vol] 0.99 mg/dL Normal 0.66-1.25 [facility] Comment on above: Performed By: #### C VDTBH #### [facility] [address] [address] [address] Suzie Brooks EGFR-AF UKRAINIAN >60 Normal >=60 [facility] Comment on above: Performed By: #### C VDTBH #### [facility] [address] [place] [address] Dr. Suzie Brooks EGFR-NON AF UKRAINIAN >60 Normal >=60 [facility] Comment on above: Performed By: #### C VDTBH #### [facility] [address] [address] [address] Suzie Brooks Glucose [Mass/Vol] 94 mg/dL Normal 74-[address] [facility] Comment on above: Performed By: #### C VDTBH #### [facility] [address] [place] [address] Dr. Suzie Brooks Potassium [Moles/Vol] 4.5 mmol/L Normal 3.4-5.0 [facility] Comment on above: Performed By: #### C VDTBH #### [facility] [address] [place] [address] Dr. Suzie Brooks Sodium [Moles/Vol] 139 mmol/L Normal 137-[address] [facility] Comment on above: Performed By: #### C VDTBH #### [facility] [address] [address] [address] Suzie Brooks Urea nitrogen [Mass/Vol] 12.0 mg/dL Normal 7.0-18.0 [facility] Comment on above: Performed By: #### C VDTBH #### [facility] [address] [place] [address] Dr. Suzie Brooks Urea nitrogen/Creatinine [Mass ratio] 12.1 mg/mg Normal [facility] Comment on above: Performed By: #### C VDTBH #### [facility] [address] [place] [address] Dr. Suzie Brooks PROTIMEon 10-26-2021 INR Coag (PPP) [Relative time] 0.99 {INR} Normal [facility] Comment on above: Performed By: #### C VDTBH #### [facility] [address] [place] [address] Dr. Suzie Brooks INR GUIDELINES SEE BELOW Normal [facility] Comment on above: Result Comment: TOMMY RED INR: 2.0 - 3.0 CONDITIONS NOT LISTED BELOW 2.5 - 3.5 FOR PROSTHETIC HEART VALVE REPLACEMENT 2.5 - 3.5 RECURRENT THROMBOSIS Performed By: #### C VDTBH #### [facility] [address] [place] [address] Dr. Suzie Brooks PT Coag (PPP) [Time] 10.7 s Normal 9.0-11.6 [facility] Comment on above: Performed By: #### C VDTBH #### [facility] [address] [place] [address] Dr. Suzie Brooks PTTon 10-26-2021 aPTT Coag (Bld) [Time] 26.4 s Normal 22.3-36.2 [facility] Comment on above: Performed By: #### C VDTBH #### [facility] [address] [place] [address] Dr. Suzie Brooks XR KUB 1 VIEWon [...] by: RAFAEL GRAVES Date: 2021-10-17 13:26 Normal [facility] Vital Signs Date Time Vital Sign Value Performing Clinician Dario mcdonough 04-11-2023 11:55-0400 Blood Pressure Location Mikikimberly ZENG [facility] 04-11-2023 11:55-0400 Diastolic blood pressure 76 mm[Hg] Miki ZENG [facility] 04-11-2023 11:55-0400 Heart rate 80 /min Miki ZENG [facility] 04-11-2023 11:55-0400 Respiratory rate 16 /min Miki ZENG [facility] 04-11-2023 11:55-0400 Systolic blood pressure 134 mm[Hg] Miki ZENG [facility] 02-25-2022 14:20-0400 Blood Pressure Location Miki ZENG [facility] 02-25-2022 14:20-0400 Diastolic blood pressure 100 mm[Hg] Miki ZENG [facility] 02-25-2022 14:20-0400 Heart rate 86 /min Miki ZENG [facility] 02-25-2022 14:20-0400 Respiratory rate 16 /min Miki ZENG [facility] 02-25-2022 14:20-0400 Systolic blood pressure 155 mm[Hg] Miki ZENG [facility] Encounters Encounter Date Encounter Type Care Provider Facility Start: 04-16-2024 ambulatory Miki Sims ty:[facility] Start: 04-11-2023 End: 04-12-2023 ambulatory Miki ZENG Facility:[facility] [place] Start: 04-11-2023 End: 04-11-2023 Patient encounter procedure Miki ZENG [facility] Start: 08-19-2022 End: 08-20-2022 ambulatory Miki ZENG Facility:[facility] [place] Start: 08-14-[address] MARIELLE LERMA Facility :[facility] Start: 08-13-[address] MARIELLE LERMA Facility :[facility] Start: 07-26-2022 End: 07-27-[address] MARIELLE LERMA Facility:[facility] Start: 07-18-2022 End: 07-19-[address] MIKI ZENG Facility:[facility] Start: 05-15-2022 End: 05-16-[address] MARIELLE LERMA Facility:[facility] Start: 02-25-2022 End: 02-25-2022 Patient encounter procedure Miki ZENG [facility] Start: 02-18-2022 End: 02-18-[address] MARIELLE [...] encounter procedure MD Marielle Lerma Work Phone: [facility] Start: 11-12-2021 End: 11-13-[address] MIKI ZENG Facility:[facility] Start: 11-06-2021 End: 11-07-[address] MARIELLE LERMA Facility:[facility] Start: 11-05-2021 End: 11-05-[address] MARIELLE LERMA Facility:[facility] Start: 11-01-2021 End: 11-01-[address] MIKI ZENG Facility:[facility] Start: 10-31-2021 Encounter for preprocedural cardiovascular examination DR MIKI ZENG [facility] Start: 10-30-[address] MIKI ZENG [facility] ity:H1 Start: 10-26-2021 End: 10-27-[address] MIKI ZENG Facility:[facility] Start: 10-26-2021 End: 10-27-2021 Encounter for preprocedural cardiovascular examination DR MIKI ZENG Facility:[facility] Start: 10-17-2021 End: 10-18-[address] MIKI ZENG Facility:[facility] Procedures Date Procedure Procedure Detail Performing Clinician Start: 05-15-[address] JHONATAN ZENG Comment on above: Performed By: #### U DINA, LIPID, TSH, BNP, CMP, T7 #### [facility] [address] [place] [address] Dr. Suzie Brooks Start: 11-21-2021 Cystoscopy Miki [...] Provider Fa cili 05-31-2022 SARS-CoV-2 (COVID-19 ) [id number] Miki ZENG [facility] Comment on above: Result Comment: 2022: [id number] 12-22-2021 SARS-CoV-2 (COVID-19 ) mRNA-1273 vaccine Miki ZENG [facility] 06-05-2021 SARS-CoV-2 (COVID-19 ) mRNA-1273 vaccine Miki ZENG [facility] 05-29-2021 influenza virus vaccine, unspecified formulation Miki ZENG [facility] 05-15-2021 influenza virus vaccine, unspecified formulation Miki ZENG [facility] 11-09-2020 SARS-CoV-2 (COVID-19 ) mRNA-1273 vaccine Miki ZENG [facility] 11-01-2020 SARS-CoV-2 (COVID-19 ) mRNA-1273 vaccine Miki ZENG [facility] 10-09-2020 SARS-CoV-2 (COVID-19 ) mRNA-1273 vaccine Miki ZENG [facility] 10-05-2020 SARS-CoV-2 (COVID-19 ) [id number] vaccine Miki [employer] [facility] 05-17-2020 influenza virus vaccine, unspecified formulation Miki [employer] [facility] 06-24-2019 tetanus toxoid, redu roberto carlos diphtheria toxoid, and acellular pertussis vaccine, adsorbed General Compression [facility] 05-25-2019 influenza virus vaccine, unspecified formulation Miki [employer] [facility] 05-22-2017 influenza virus vaccine, unspecified formulation Miki [employer] [facility] 05-22-2017 pneumococcal conjuga te vaccine, 13 valent General Compression [facility] 05-30-2016 influenza, unspecifi ed formulation Miki [employer] [facility] 11-01-2013 zoster vaccine, live Miki ZENG [facility] 12-18-2005 hepatitis A vaccine, adult dosage General Compression [facility] 10-18-2005 hepatitis B vaccine, pediatric or pediatric/adolescent dosage General Compression [facility] 10-18-2005 tetanus and diphther ia toxoids, adsorbed, preservative free, for adult use (2 Lf of tetanus toxoid and 2 Lf of diphtheria toxoid) General Compression [facility] 07-26-2005 hepatitis B vaccine, pediatric or pediatric/adolescent dosage Miki ZENG [facility] 06-20-2005 hepatitis A vaccine, adult dosage Miki ZENG [facility] 06-20-2005 hepatitis B vaccine, pediatric or pediatric/adolescent dosage Miki ZENG [facility] Payers Date Payer Category Payer Medicare [id number] Private Health Insurance [id number] 1950 Unknown [id number] 2.16.84 0.1.717931.3.579.2.593 1950 Unknown [id number] 2.16.84 0.1.239112.3.579.2.593 1950 Unknown [id number] 2.16.84 0.1.122682.3.579.2.593 1952 Unknown [id number] 2.16.84 0.1.998270.3.579.2.593 1952 Unknown [id number] 2.16.84 0.1.439598.3.579.2.593 1952 Unknown [id number] 2.16.84 0.1.908096.3.579.2.593 1950 Unknown [id number] 2.16.84 0.1.692236.3.579.2.593 1952 Unknown [id number] 2.16.84 0.1.651121.3.579.2.593 1952 Unknown [id number] 2.16.84 0.1.003587.3.579.2.593 1952 Unknown [id number] 2.16.84 0.1.300077.3.579.2.593 1952 Unknown [id number] 2.16.84 0.1.305014.3.579.2.593 1952 Unknown [id number] 2.16.84 0.1.563053.3.579.2.593 1952 Unknown [id number] 2.16.84 0.1.983669.3.579.2.593 1952 Unknown [id number] 2.16.84 0.1.615694.3.579.2.593 1952 Unknown [id number] 2.16.84 0.1.922355.3.579.2.593 1952 Unknown [id number] 2.16.84 0.1.276101.3.579.2.593 1952 Unknown [id number] 2.16.84 0.1.273545.3.579.2.593 1952 Unknown [id number] 2.16.84 0.1.116764.3.579.2.593 1952 Unknown [id number] 2.16.8 40.1.019301.3.579.2.727 1950 Unknown [id number] 2.16.8 40.1.428092.3.579.2.727 1950 Unknown [id number] 2.16.8 40.1.303087.3.579.2.727 Self-pay Self Pay [id number] Social History Date Type Detail Facility Start: 10-19-2019 End: 04-11-2023 Tobacco smoking status NHIS Ex-smoker (finding) [facility] Start: 1950 Sex Assigned At Male F [facility] Tobacco smoking status Never [facility] Sex Assigned At Male [facility] Functional Status Date Assessment Result Facility 04-11-2023 Functional Status N/A [facility] 02-25-2022 Functional Status N/A [facility] Hospital Discharge instructions 04-11-2023 Note Date & [...] include: ?8 oz (237 mL) of milk, gvqhnvv-zjopmcezqvlq-ceucs milk, and calcium-fortifiedfruit juice. Calcium-fortified means that [...] ?Spinach (cooked), rhubarb, beets, sweet potatoes, and Danish chard. ?Peanuts. ?Potato chips, maldivian fries, and baked potatoes with skin on. ?Nuts and nut products. ?Chocolate. If you regularly take a diuretic medicine, make sure to eat at least 1 or 2 servings of fruits or vegetables that are high in potassium each day. These include: ?Avocado. ?Banana. ?Mellette, prune, carrot, or tomato juice. ?Baked potato. [...] magnesium, fish oil, or vitamin B6. Take myoh-pjg-kaevexx and prescription medicines only as told by [...] Casseroles. Pizza. Lasagna. Frozen meals. Potato chips. Azerbaijani fries. The items listed above may not [...] provider. Document Revised: 04/08/2022 Document Reviewed: 04/08/2022 [email or web address] Patient Education 2022 [employer]. Follow Up Care 08/19/2022 10:39:03 With:THOR BATISTA, Miki Cedeño, URL Address: [facility] [address], [place] [address]- When:Within 1 Year(s) [facility] Hospital Discharge instructions 02-25-2022 Note Date & [...] 07/28/2006 Document Revised: 04/16/2019 Document Reviewed: 06/27/2017 [email or web address] Patient Education 2020 [employer]. 02/25/2022 15:28:39 Kidney Stones, Ildr-ut-Goki Kidney Stones Kidney stones are rock-like masses [...] Follow these instructions at home: Medicines Take ddjs-cfl-pttjqoy and prescription medicines only as told by [...] 01/13/2009 Document Revised: 12/14/2019 Document Reviewed: 12/14/2019 [email or web address] Patient Education 2020 [employer]. Follow Up Care 11/21/2021 12:48:10 With:THOR BATISTA, Miki Cedeño, URL Address: [facility] [address] , [place] [address]- [phone] When:Within 4 Month(s) Comments:4 mo fu with IVP [facility] Evaluation + Plan note 02-25-2022 Note Date & Type Note Facility 02-25-2022 Evaluation + Plan note Diagnostic Tests PendingPSA Total 02/25/22Creatinine 02/25/22 [facility] Evaluation + Plan note Note Date & Type Note Facility Evaluation + Plan note Future Appointments Appointment Date:04/16/2024 11:00:00 AM Scheduled Provider:THOR BATISTA, Miki Cedeño Location:[facility] Appointment Type:URO Office Visit [facility] Evaluation note Note Date & Type Note Facility Evaluation note No assessment information availa [facility] Work Phone: Hospital course Narrative Note Date & Type Note Facility Hospital course Narrative No data available for this section [facility] Progress note Note Date & Type Note Facility Progress note No data available for this section [facility] Chief Complaint and Reason for Visit Chief [...] section and content) DATE CREATED AUTHOR 11/22/2021 [facility] DATE CREATED AUTHOR AUTHOR'S ORGANIZ ATION [facility]/13/2022 [facility] DATE CREATED AUTHOR AUTHOR'S ORGANIZ ATION 04/12/2023 [facility] FOR RECORDS PERTAINING TO PATIENTS WHO ARE [...] BE BASED ON THE PRIMARY CLINICAL RECORDS. [employer] provides no warranty or guarantee of the accuracy or completeness of information in this document.
[2023-09-02 18:04] LABS: Lactate/Lactic Acid 2.5 mmol/L (0.4-2.0)
[2023-09-02] MEDS: POTASSIUM CITRATE 10 MEQ ER TABLET PO (20:29)
[2023-09-02] MEDS: METHYLPREDNISOLONE SOD SUCC PF 125 MG/2 ML VIAL 60 MG IVP (20:29)
[2023-09-02] MEDS: PRIMIDONE 50 MG TABLET PO (20:29)
[2023-09-02 21:05] LABS: Lactate/Lactic Acid 2.8 mmol/L (0.4-2.0)
[2023-09-02] MEDS: IPRATROPIUM/ALBUTEROL SULFATE 3 ML AMPUL.NEB IH (23:53)
[2023-09-03] VITALS (22 sets, daily range): BP systolic 136–158; BP diastolic 69–108; PULSE 55–100; RESP 16–18; TEMP 36.4–36.8; O2SAT 90–96
[2023-09-03 00:02] LABS: Lactate/Lactic Acid 2.6 mmol/L (0.4-2.0)
[2023-09-03] MEDS: METHYLPREDNISOLONE SOD SUCC PF 125 MG/2 ML VIAL 60 MG IVP (01:34)
[2023-09-03 02:56] LABS: Basophils Percent Auto 0.2 % (0.2-2.0); Hematocrit 47.4 % (42.0-54.0); Hemoglobin 15.7 g/dL (14.0-18.0); Immature Granulocytes Abs Auto 0.28 10^3/uL (0.00-0.03); Immature Granulocytes Pct Auto 1.5 % (0.0-0.5); Lymphocytes Absolute Auto 0.8 10^3/uL (1.2-3.8); Lymphocytes Percent Auto 4.2 % (20.5-60.0); Mean Corpuscular HGB Conc 33.1 g/dL (29.9-35.2); Mean Corpuscular Hemoglobin 29.6 pg (25.9-34.0); Mean Corpuscular Volume 89.3 fL (80.0-94.0); Mean Platelet Volume 9.6 fL (9.5-13.5); Monocytes Absolute Auto 0.4 10^3/uL (0.3-0.8); Monocytes Percent Auto 1.9 % (1.7-12.0); Neutrophils Absolute Auto 17.1 10^3/uL (1.4-6.5); Neutrophils Percent Auto 92.2 % (43.0-75.0); Platelet Count 241 10^3/uL (150-450); Red Blood Count 5.31 10^6/uL (4.70-6.10); Red Cell Distribution Width 14.3 % (11.0-15.0); White Blood Count 18.5 10^3/uL (4.0-11.0)
[2023-09-03 03:04] LABS: Anion Gap 14.4; BUN Creatinine Ratio 23.3; Calcium 8.4 mg/dL (8.5-10.1); Carbon Dioxide 24.7 mmol/L (21.0-32.0); Chloride 107 mmol/L (98-107); Estimated GFR (African America >60 (>=60); Estimated GFR (Non-African Ame >60 (>=60); Glucose 136 mg/dL (74-106); Potassium 4.1 mmol/L (3.5-5.1); Sodium 142 mmol/L (136-145)
[2023-09-03 03:15] LABS: Lactate/Lactic Acid 2.7 mmol/L (0.4-2.0)
[2023-09-03] MEDS: IPRATROPIUM/ALBUTEROL SULFATE 3 ML AMPUL.NEB IH ×4 (04:33→23:56)
[2023-09-03 06:12] LABS: Lactate/Lactic Acid 4.5 mmol/L (0.4-2.0)
[2023-09-03 07:15] LABS: Troponin I High Sensitivity 7.5 pg/mL (4.0-76.1)
--- NOTE | 2023-09-03 07:44 | XR_ITS ---
[address] [address] Patient Name: RIZWAN LOCK MRN: [id number] date: 1950 Sex: M Assigned Patient Location: [place] Current Patient Location: [place] Accession/Order Number: [id number] Exam Date: 09/03/2023 08:30 Report Date: 09/03/2023 08:56 At the request of: MARIELLE RAMIREZ Procedure: XR chest 2V EXAMINATION: XR chest 2V HISTORY: pneumonia COMPARISON: 09/02/2023 TECHNIQUE: PA and lateral FINDINGS: LUNGS: No significant pulmonary parenchymal abnormalities. VASCULATURE: No increased pulmonary vasculature. PLEURA: No pneumothorax, effusion, or pleural thickening. Elevation of the right hemidiaphragm, stable CARDIAC: No cardiomegaly or cardiac silhouette abnormality. MEDIASTINUM: No visible mass or adenopathy. BONES: No fracture or visible bone lesion. OTHER: Negative. XR/XR chest 2V IMPRESSION: No acute cardiopulmonary process Electronically authenticated by: RAFAEL GRAVES Date: 09/03/2023 08:56
--- NOTE | 2023-09-03 08:19 | P.HP_ITS ---
H&P: HPI History of Present Illness Chief complaint: SOB, Chest Pain Narrative: Patient called the office with increasing shortness of breath and weakness. With a history of coronary artery disease recommended he present to the emergency room. In the emergency room initial cardiac workup testing was all negative, still still have some significant shortness of breath, chest x-ray was clear at the time. Patient appeared to be somewhat dehydrated. 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 - Broken internal right knee prosthesis, initial encounter (ICD-10) Umbilical hernia ?K42.9 - Umbilical hernia without obstruction or gangrene (ICD-10) Kidney stones ?N20.0 - Calculus of kidney (ICD-10) Hx of skin malignancy ?Z85.828 - Personal history of other malignant neoplasm of skin (ICD-10) Chest pain ?R07.9 - Chest pain, unspecified (ICD-10) Surgical History (Updated 09/02/23 @ 16:17 by Nory Patel) History of cataract surgery ?Z98.49 - Cataract extraction status, unspecified eye (ICD-10) History of renal stent H/O lithotripsy ?Z98.890 - Other specified postprocedural states (ICD-10) Family History (Updated 09/02/23 @ 16:18 by Nory Patel) Mother Family history of cancer Family history of hypertension Father Family history of diabetes mellitus Family history of hypertension Family history of myocardial infarction Social History (Updated 09/02/23 @ 16:20 by Nory Patel) Within the past year, how often did you have a drink containing alcohol: 2-4 times a month Smoking status: Former smoker Non-prescribed substance use: denies use Previous occupational history: Retired Highest level of school completed/degree received: Associate degree: occupational, technical, vocational program Are you now , , , , never or living with a partner: In a typical week, how many times do you talk on the telephone with family, friends, or neighbors: 3 or more times per week How often do you get together with friends or relatives: 3 or more times per week How often do you attend catholic or mandaen services: never Do you belong to any clubs or organizations such as catholic groups unions, fraternal or athletic groups, or school groups: no Total score: 2 Score interpretation: A score of greater than or equal to 2 indicates the lowest level of social isolation. Little interest or pleasure in doing things: not at all Feeling down, depressed, or hopeless: not at all Feel stressed/tense/nervous/anxious/difficulty sleeping: not at all Do you think of yourself as: straight/heterosexual Gender Identity: male Meds Home Medications and Allergies Home Medications Medication Instructions Recorded Confirmed Type allopurinol 300 mg tablet 300 mg PO DAILY 08/15/23 09/02/23 History aspirin 81 mg capsule 81 mg PO DAILY #30 caps 08/15/23 09/02/23 Rx hydrochlorothiazide 12.5 mg capsule 12.5 mg PO QDAY 08/15/23 09/02/23 History meloxicam 15 mg tablet 15 mg PO DAILY 08/15/23 09/02/23 History potassium citrate 10 mEq (1,080 10 meq PO BID 08/15/23 09/02/23 History mg) tablet,extended release primidone 50 mg tablet 50 mg PO BID 08/15/23 09/02/23 History simvastatin 20 mg tablet 20 mg PO .QHS 08/15/23 09/02/23 History solifenacin 10 mg tablet 10 mg PO DAILY 08/15/23 09/02/23 History tamsulosin 0.4 mg capsule 0.4 mg PO Q24H 08/15/23 09/02/23 History lisinopril 40 mg tablet 40 mg PO .QD 09/02/23 09/02/23 History Allergies Allergy/AdvReac Type Severity Reaction Status Date / Time No Known Drug Allergies Allergy Verified 08/15/23 09:06 Exam Constitutional Vital Signs, click to edit/add: Last Vital Signs Temp 97.5 F L 09/03/23 04:43 Pulse 74 09/03/23 07:59 Resp 18 09/03/23 04:43 BP 136/69 09/03/23 04:43 Pulse Ox 90 L 09/03/23 04:43 O2 Del Method Room Air 09/03/23 04:43 Documenting provider has reviewed patient's vital signs: yes Common normals: no apparent distress Chest Common normals: inspection of chest normal Respiratory Common normals: abnormal respiratory effort Auscultation: rhonchi, wheezes (Tight) and egophony (Right lower lobe) Cardio Common normals: no JVD, regular rate, regular rhythm and no murmurs GI Common normals: Normal to inspection, nondistended, normoactive bowel sounds present Extremity Common normals: normal to inspection (No edema) and full ROM Results Labs Labs: Short CBC 09/02/23 09/03/23 Range/Units 13:48 02:49 WBC 23.9 H 18.5 H (4.0-11.0) 10^3/uL Hgb 16.5 15.7 (14.0-18.0) g/dL Hct 50.3 47.4 (42.0-54.0) % Plt Count 294 241 (150-450) 10^3/uL BMP 09/02/23 09/03/23 13:48 02:49 Sodium 141 142 Potassium 3.5 4.1 Chloride 105 107 Carbon Dioxide 27.5 24.7 BUN 26.0 H 21.0 H Creatinine 1.09 0.90 Glucose 102 136 H Calcium 8.8 8.4 L Liver Function 09/02/23 Range/Units 13:48 Total Bilirubin 0.6 (0.2-1.0) mg/dL AST 17 (15-37) U/L ALT 41 (16-63) U/L Alkaline Phosphatase 51 (46-116) U/L Albumin 3.1 L (3.4-5.0) g/dL ABG ABG results: 09/02/23 14:30 VBG pH 7.466 H VBG pCO2 31.0 L Assessment and Plan Assessment and Plan (1) Weakness: (2) Acute dyspnea: Plan Mild hypoxia this morning for O2 saturation of 90%, this is low for him. Lactic acidosis persisting with leukocytosis, respiratory alkalosis secondary to pneumonia. Chest x-ray was initially clear. I think with hydration and will show a right lower lobe pneumonia. Patient feels worse today than he did yesterday. With the deterioration in his lactic acidosis, overall general feeling of worse will repeat x-ray, consider CTA, make aerosols xhnvfh-nen-artoc and as needed, increase steroids and change IV antibiotics. Also fluid bolus given this morning Leukocytosis secondary to suspected right lower lobe pneumonia-see above Hyperglycemia likely jimwqrn-tuuhkws-cfyk check Accu-Cheks before meals and at bedtime and insulin sliding scale Hypertension--hold medications for now Coronary artery disease-no chest pain-will check BNP secondary to fluid resuscitation Initially placed patient in observation status with chest x-ray being clear, but with the persisting lactic acidosis, mild hypoxia, breathing worsened today compared to yesterday, change patient to inpatient status-highly likely patient here at least 2-3 more days
[2023-09-03 09:26] LABS: Lactate/Lactic Acid 4.8 mmol/L (0.4-2.0)
[2023-09-03] MEDS: PIPERACILLIN SODIUM/TAZOBACTAM 3.375 GM in 0.9 % SODIUM CHLORIDE 50 ML IV ×2 (09:59→22:36)
[2023-09-03] MEDS: PRIMIDONE 50 MG TABLET PO ×2 (10:07→20:52)
[2023-09-03] MEDS: METHYLPREDNISOLONE SOD SUCC PF 125 MG/2 ML VIAL IVP ×3 (10:07→20:52)
[2023-09-03] MEDS: ASPIRIN 81 MG TAB.CHEW PO (10:08)
[2023-09-03] MEDS: TAMSULOSIN HCL 0.4 MG CAPSULE PO (10:08)
[2023-09-03] MEDS: ATORVASTATIN CALCIUM 10 MG TABLET PO (10:08)
[2023-09-03] MEDS: ALLOPURINOL 300 MG TABLET PO (10:08)
[2023-09-03] MEDS: MELOXICAM 7.5 MG TABLET 15 MG PO (10:13)
[2023-09-03] MEDS: POTASSIUM CITRATE 10 MEQ ER TABLET PO ×2 (10:14→20:52)
[2023-09-03] MEDS: 0.9 % SODIUM CHLORIDE 1,000 ML 1000 ML IV (10:21)
[2023-09-03 11:24] LABS: Glucometer 122 mg/dL (74-106)
[2023-09-03] MEDS: LEVOFLOXACIN IN DEXTROSE 5 % 750 MG/150 ML IV.SOLN 100 MG IV (11:27)
--- NOTE | 2023-09-03 14:04 | CT_ITS ---
The [address] [address] Patient Name: RIZWAN LOCK MRN: [id number] date: 1950 Sex: M Assigned Patient Location: [place] Current Patient Location: [place] Accession/Order Number: [id number] Exam Date: 09/03/2023 14:35 Report Date: 09/03/2023 14:57 At the request of: MARIELLE RAMIREZ Procedure: CT head/brain wo con HEAD CT WITHOUT CONTRAST: 09/03/2023 2:35 PM EST Clinical Data: blurred vision Comparison: No previous Unenhanced axial data from base to vertex. INTRA-AXIAL: No acute hemorrhage. No acute infarction is evident. EXTRA-AXIAL: No acute hemorrhage. No focal fluid collection. BRAIN VOLUME: Unremarkable for age. VENTRICLES: No hydrocephalus PARANASAL SINUSES: A modestly sized air-fluid level left sphenoid sinus. MASTOIDS: Clear. CALVARIUM: No acute finding. EXTRACALVARIAL: No acute findings. Status post bilateral cataract surgery CT/CT head/brain wo con IMPRESSION: 1. No evidence of acute intracranial process on this unenhanced study as described.. 2. Modestly sized air-fluid level left sphenoid sinus potentially indicating acute sinusitis. All CT scans at this facility use dose modulation, iterative reconstruction, and/or weight based dosing when appropriate to reduce radiation dose to as low as reasonably achievable. Electronically authenticated by: CLEVELAND GOODEN Date: 09/03/2023 14:57
[2023-09-03 14:44] LABS: Hematocrit 49.8 % (42.0-54.0); Hemoglobin 16.7 g/dL (14.0-18.0); Mean Corpuscular HGB Conc 33.5 g/dL (29.9-35.2); Mean Corpuscular Hemoglobin 29.7 pg (25.9-34.0); Mean Corpuscular Volume 88.6 fL (80.0-94.0); Mean Platelet Volume 9.7 fL (9.5-13.5); Platelet Count 276 10^3/uL (150-450); Red Blood Count 5.62 10^6/uL (4.70-6.10); Red Cell Distribution Width 14.4 % (11.0-15.0); White Blood Count 27.9 10^3/uL (4.0-11.0)
[2023-09-03 14:49] LABS: Ammonia 27 umol/L (11-32)
[2023-09-03 15:01] LABS: Lactate/Lactic Acid 4.3 mmol/L (0.4-2.0)
[2023-09-03 15:05] LABS: Anion Gap 15.5; BUN Creatinine Ratio 20.2; Calcium 8.7 mg/dL (8.5-10.1); Carbon Dioxide 22.1 mmol/L (21.0-32.0); Chloride 105 mmol/L (98-107); Estimated GFR (African America >60 (>=60); Estimated GFR (Non-African Ame >60 (>=60); Free T3 1.57 pg/mL (2.18-3.98); Glucose 153 mg/dL (74-106); Magnesium 1.7 mg/dL (1.8-2.4); Potassium 3.6 mmol/L (3.5-5.1); Sodium 139 mmol/L (136-145)
[2023-09-03 15:26] LABS: Lymphocytes Absolute Manual 1.67 10^3/uL (1.20-3.80); Monocytes Absolute Manual 0.55 10^3/uL (0.30-0.80); Segmented Neut Absolute Manual 25.66 10^3/uL (1.4-6.5)
--- NOTE | 2023-09-03 15:35 | CM.NOTE ---
Important Message From Medicare discussed with pt, pt verbalizes understanding and signs paper. Original given to pt and copy placed on pt's chart.
[2023-09-03 16:08] LABS: Glucometer 122 mg/dL (74-106)
[2023-09-03] MEDS: BENZONATATE 100 MG CAPSULE 200 MG PO (18:09)
[2023-09-03] MEDS: DIAZEPAM 5 MG TABLET PO ×2 (18:09→23:50)
[2023-09-03 20:14] LABS: Glucometer 146 mg/dL (74-106)
[2023-09-03] MEDS: LACTATED RINGER'S SOLUTION 1,000 ML 125 ML IV (20:53)
[2023-09-03] MEDS: INSULIN ASPART 300 UNIT/3 ML PEN SUBQ (22:36)
[2023-09-04] VITALS (19 sets, daily range): BP systolic 148–180; BP diastolic 68–83; PULSE 63–109; RESP 16–18; TEMP 36.3–36.7; O2SAT 94–95
[2023-09-04] MEDS: METHYLPREDNISOLONE SOD SUCC PF 125 MG/2 ML VIAL IVP ×4 (02:19→22:07)
[2023-09-04] MEDS: IPRATROPIUM/ALBUTEROL SULFATE 3 ML AMPUL.NEB IH ×4 (04:49→23:25)
[2023-09-04] MEDS: LACTATED RINGER'S SOLUTION 1,000 ML 125 ML IV (05:22)
[2023-09-04] MEDS: PIPERACILLIN SODIUM/TAZOBACTAM 3.375 GM in 0.9 % SODIUM CHLORIDE 50 ML IV ×3 (05:23→22:07)
[2023-09-04 06:24] LABS: Basophils Absolute Auto 0.1 10^3/uL (0.0-0.1); Basophils Percent Auto 0.3 % (0.2-2.0); Hematocrit 49.6 % (42.0-54.0); Hemoglobin 16.3 g/dL (14.0-18.0); Immature Granulocytes Abs Auto 0.68 10^3/uL (0.00-0.03); Immature Granulocytes Pct Auto 2.7 % (0.0-0.5); Lymphocytes Absolute Auto 1.3 10^3/uL (1.2-3.8); Mean Corpuscular HGB Conc 32.9 g/dL (29.9-35.2); Mean Corpuscular Hemoglobin 29.6 pg (25.9-34.0); Mean Corpuscular Volume 90.2 fL (80.0-94.0); Mean Platelet Volume 9.8 fL (9.5-13.5); Monocytes Absolute Auto 0.7 10^3/uL (0.3-0.8); Monocytes Percent Auto 2.9 % (1.7-12.0); Neutrophils Absolute Auto 22.5 10^3/uL (1.4-6.5); Neutrophils Percent Auto 89.1 % (43.0-75.0); Platelet Count 261 10^3/uL (150-450); Red Cell Distribution Width 14.6 % (11.0-15.0); White Blood Count 25.2 10^3/uL (4.0-11.0)
[2023-09-04 06:32] LABS: Anion Gap 17.8; BUN Creatinine Ratio 22.8; Calcium 8.5 mg/dL (8.5-10.1); Carbon Dioxide 22.1 mmol/L (21.0-32.0); Chloride 105 mmol/L (98-107); Estimated GFR (African America >60 (>=60); Estimated GFR (Non-African Ame >60 (>=60); Glucose 141 mg/dL (74-106); Potassium 3.9 mmol/L (3.5-5.1); Sodium 141 mmol/L (136-145)
--- NOTE | 2023-09-04 08:04 | P.PN_ITS ---
Progress Note: Subjective Subjective Interval history: Is a little bit more comfortable with his breathing today. Still dyspnea with any activity in the room. Exam Constitutional Vital Signs, click to edit/add: Last Vital Signs Temp 97.8 F 09/04/23 04:51 Pulse 73 09/04/23 07:54 Resp 18 09/04/23 04:51 BP 148/68 H 09/04/23 04:51 Pulse Ox 95 09/04/23 04:51 O2 Del Method Room Air 09/04/23 04:51 Documenting provider has reviewed patient's vital signs: yes Common normals: no apparent distress Chest Common normals: inspection of chest normal Respiratory Common normals: abnormal respiratory effort Auscultation: rhonchi (Much better air exchange); no wheezes (Just had aerosol treatment) and no egophony (Could not appreciate the change today) Cardio Common normals: no JVD, regular rate, regular rhythm and no murmurs GI Common normals: Normal to inspection, nondistended, normoactive bowel sounds present Extremity Common normals: normal to inspection (No edema) and full ROM Progress Note: Objective Labs Labs: Short CBC 09/03/23 09/04/23 Range/Units 14:28 05:28 WBC 27.9 H 25.2 H (4.0-11.0) 10^3/uL Hgb 16.7 16.3 (14.0-18.0) g/dL Hct 49.8 49.6 (42.0-54.0) % Plt Count 276 261 (150-450) 10^3/uL BMP 09/03/23 09/04/23 14:28 05:28 Sodium 139 141 Potassium 3.6 3.9 Chloride 105 105 Carbon Dioxide 22.1 22.1 BUN 21.0 H 21.0 H Creatinine 1.04 0.92 Glucose 153 H 141 H Calcium 8.7 8.5 Progress Note: A&P Assessment and Plan (1) Weakness: (2) Acute dyspnea: Plan Mild hypoxia resolved today, . Lactic acidosis pending with leukocytosis, respiratory alkalosis secondary to pneumonia. Chest x-ray was initially clear. Repeat chest x-ray also clear. But based on exam right lower lobe consistent with pneumonia. Continue with current antibiotic regimen as he failed outpatient treatment needs at least 1 additional day of IV therapy and likely 2. Leukocytosis with left shift secondary to right lower lobe pneumonia-see above Hyperglycemia likely gfaccix-mkwdvsj-oqkm check Accu-Cheks before meals and at bedtime and insulin sliding scale-stable Hypertension--hold medications for now-stable Coronary artery disease-no chest pain-will check BNP secondary to fluid resuscitation-stable Maintain inpatient status, needs at least 1 additional day likely two for IV therapy to improve his failed outpatient treatment of his right lower lobe pneumonia ?
[2023-09-04] MEDS: DIAZEPAM 5 MG TABLET PO (10:06)
[2023-09-04] MEDS: POTASSIUM CITRATE 10 MEQ ER TABLET PO ×2 (10:06→22:07)
[2023-09-04] MEDS: ALLOPURINOL 300 MG TABLET PO (10:07)
[2023-09-04] MEDS: MELOXICAM 7.5 MG TABLET 15 MG PO (10:07)
[2023-09-04] MEDS: PRIMIDONE 50 MG TABLET PO ×3 (10:07→22:07)
[2023-09-04] MEDS: ASPIRIN 81 MG TAB.CHEW PO (10:07)
[2023-09-04] MEDS: ATORVASTATIN CALCIUM 10 MG TABLET PO (10:08)
[2023-09-04] MEDS: TAMSULOSIN HCL 0.4 MG CAPSULE PO (10:08)
[2023-09-04 11:27] LABS: Glucometer 139 mg/dL (74-106)
[2023-09-04] MEDS: FLUTICASONE PROPIONATE 50 MCG NASAL SPRAY 2 SPRAY NS (12:21)
[2023-09-04] MEDS: LEVOFLOXACIN IN DEXTROSE 5 % 750 MG/150 ML IV.SOLN 100 MG IV (12:21)
[2023-09-04 16:00] LABS: Glucometer 129 mg/dL (74-106)
[2023-09-04 20:40] LABS: Glucometer 165 mg/dL (74-106)
[2023-09-04] MEDS: CETIRIZINE HCL 10 MG TABLET 20 MG PO (22:07)
[2023-09-04] MEDS: CLONIDINE HCL 0.1 MG TABLET PO (22:07)
[2023-09-04] MEDS: INSULIN ASPART 300 UNIT/3 ML PEN SUBQ (22:07)
[2023-09-04] MEDS: MONTELUKAST SODIUM 10 MG TABLET PO (22:07)
[2023-09-05] VITALS (14 sets, daily range): BP systolic 152–172; BP diastolic 79–83; PULSE 63–84; RESP 16–20; TEMP 36.7–36.9; O2SAT 94–98
[2023-09-05] MEDS: METHYLPREDNISOLONE SOD SUCC PF 125 MG/2 ML VIAL IVP (04:15)
[2023-09-05] MEDS: IPRATROPIUM/ALBUTEROL SULFATE 3 ML AMPUL.NEB IH ×4 (04:29→22:42)
[2023-09-05 05:21] LABS: Hematocrit 49.5 % (42.0-54.0); Hemoglobin 16.3 g/dL (14.0-18.0); Mean Corpuscular HGB Conc 32.9 g/dL (29.9-35.2); Mean Corpuscular Hemoglobin 29.6 pg (25.9-34.0); Mean Platelet Volume 9.4 fL (9.5-13.5); Platelet Count 271 10^3/uL (150-450); Red Cell Distribution Width 14.8 % (11.0-15.0); White Blood Count 24.5 10^3/uL (4.0-11.0)
[2023-09-05 05:52] LABS: Anion Gap 14.1; Calcium 8.4 mg/dL (8.5-10.1); Carbon Dioxide 20.7 mmol/L (21.0-32.0); Chloride 107 mmol/L (98-107); Estimated GFR (African America >60 (>=60); Estimated GFR (Non-African Ame >60 (>=60); Glucose 173 mg/dL (74-106); Potassium 3.8 mmol/L (3.5-5.1); Sodium 138 mmol/L (136-145)
[2023-09-05 06:05] LABS: Atypical Lymphocytes Abs Man 0.73; Lymphocytes Absolute Manual 0.98 10^3/uL (1.20-3.80); Monocytes Absolute Manual 0.73 10^3/uL (0.30-0.80); Segmented Neut Absolute Manual 22.05 10^3/uL (1.4-6.5)
[2023-09-05 06:06] LABS: Hypersegmented Neutrophils 2+
[2023-09-05] MEDS: PIPERACILLIN SODIUM/TAZOBACTAM 3.375 GM in 0.9 % SODIUM CHLORIDE 50 ML IV ×3 (06:06→22:27)
[2023-09-05] MEDS: PRIMIDONE 50 MG TABLET PO ×3 (06:06→22:27)
[2023-09-05] MEDS: INSULIN ASPART 300 UNIT/3 ML PEN SUBQ ×2 (08:04→17:39)
--- NOTE | 2023-09-05 08:06 | P.PN_ITS ---
Progress Note: Subjective Subjective Interval history: Still with significant cough that is somewhat productive still. Dyspnea with activity. Exam Constitutional Vital Signs, click to edit/add: Last Vital Signs Temp 98.1 F 09/05/23 04:23 Pulse 66 09/05/23 07:51 Resp 16 09/05/23 04:29 BP 152/82 H 09/05/23 04:23 Pulse Ox 97 09/05/23 04:29 O2 Del Method Room Air 09/05/23 04:29 Documenting provider has reviewed patient's vital signs: yes Common normals: no apparent distress Chest Common normals: inspection of chest normal Respiratory Common normals: abnormal respiratory effort Auscultation: rhonchi (Still have rhonchi in right lower lobe but egophony has resolved); no wheezes (Just had aerosol treatment) and no egophony (Could not appreciate the change today) Cardio Common normals: no JVD, regular rate, regular rhythm and no murmurs GI Common normals: Normal to inspection, nondistended, normoactive bowel sounds present Extremity Common normals: normal to inspection (No edema) and full ROM Progress Note: Objective Labs Labs: Short CBC 09/05/23 Range/Units 04:59 WBC 24.5 H (4.0-11.0) 10^3/uL Hgb 16.3 (14.0-18.0) g/dL Hct 49.5 (42.0-54.0) % Plt Count 271 (150-450) 10^3/uL BMP 09/05/23 04:59 Sodium 138 Potassium 3.8 Chloride 107 Carbon Dioxide 20.7 L BUN 26.0 H Creatinine 1.00 Glucose 173 H Calcium 8.4 L Progress Note: A&P Assessment and Plan (1) Weakness: (2) Acute dyspnea: Plan Mild hypoxia resolved today, . Lactic acidosis pending with leukocytosis, respiratory alkalosis secondary to right lower lobe pneumonia. Chest x-ray was initially clear. Repeat chest x-ray also clear. But based on exam right lower lobe consistent with pneumonia. 1 more day of IV antibiotics overall patient improving but still with significant dyspnea and again failed outpatient treatment with 2 oral antibiotics doxycycline and cefdinir Leukocytosis with left shift secondary to right lower lobe pneumonia-see above Hyperglycemia likely ziwjuzk-ldsnwmo-kvdg check Accu-Cheks before meals and at bedtime and insulin sliding scale-stable Hypertension--hold medications for now-stable Coronary artery disease-no chest pain-will check BNP secondary to fluid resuscitation-stable If you continue to improve and has less dyspnea with ambulation tomorrow he can be discharged home ?
--- NOTE | 2023-09-05 09:09 | SWNOTE1 ---
SW met with pt to discuss dc needs. Pt lives at home with his . Pt is independent at home and voices no needs at discharge. SW to follow as needed.
[2023-09-05] MEDS: MELOXICAM 7.5 MG TABLET 15 MG PO (10:24)
[2023-09-05] MEDS: TAMSULOSIN HCL 0.4 MG CAPSULE PO (10:24)
[2023-09-05] MEDS: FLUCONAZOLE 100 MG TABLET 200 MG PO (10:24)
[2023-09-05] MEDS: POTASSIUM CITRATE 10 MEQ ER TABLET PO ×2 (10:24→22:26)
[2023-09-05] MEDS: CLONIDINE HCL 0.1 MG TABLET PO ×2 (10:25→22:26)
[2023-09-05] MEDS: ASPIRIN 81 MG TAB.CHEW PO (10:25)
[2023-09-05] MEDS: ALLOPURINOL 300 MG TABLET PO (10:25)
[2023-09-05] MEDS: LISINOPRIL 20 MG TABLET 40 MG PO (10:25)
[2023-09-05] MEDS: ATORVASTATIN CALCIUM 10 MG TABLET PO (10:25)
[2023-09-05] MEDS: FLUTICASONE PROPIONATE 50 MCG NASAL SPRAY 2 SPRAY NS (10:26)
[2023-09-05] MEDS: METHYLPREDNISOLONE SOD SUCC PF 125 MG/2 ML VIAL 60 MG IVP ×3 (10:26→22:26)
[2023-09-05 11:12] LABS: Glucometer 136 mg/dL (74-106)
[2023-09-05] MEDS: LEVOFLOXACIN IN DEXTROSE 5 % 750 MG/150 ML IV.SOLN 100 MG IV (11:51)
[2023-09-05 16:34] LABS: Glucometer 151 mg/dL (74-106)
[2023-09-05 22:25] LABS: Glucometer 134 mg/dL (74-106)
[2023-09-05] MEDS: MONTELUKAST SODIUM 10 MG TABLET PO (22:26)
[2023-09-05] MEDS: CETIRIZINE HCL 10 MG TABLET 20 MG PO (22:27)
[2023-09-06] MEDS: METHYLPREDNISOLONE SOD SUCC PF 125 MG/2 ML VIAL 60 MG IVP ×2 (03:04→09:44)
[2023-09-06 04:10] VITALS: PULSE 79; RESP 16; O2SAT 96
[2023-09-06] MEDS: IPRATROPIUM/ALBUTEROL SULFATE 3 ML AMPUL.NEB IH ×2 (04:10→11:11)
[2023-09-06 04:20] VITALS: PULSE 76; RESP 18; O2SAT 97
[2023-09-06 04:50] LABS: Basophils Percent Auto 0.1 % (0.2-2.0); Hematocrit 44.5 % (42.0-54.0); Hemoglobin 14.4 g/dL (14.0-18.0); Immature Granulocytes Abs Auto 0.47 10^3/uL (0.00-0.03); Immature Granulocytes Pct Auto 2.9 % (0.0-0.5); Lymphocytes Absolute Auto 0.6 10^3/uL (1.2-3.8); Mean Corpuscular HGB Conc 32.4 g/dL (29.9-35.2); Mean Corpuscular Hemoglobin 29.3 pg (25.9-34.0); Mean Corpuscular Volume 90.4 fL (80.0-94.0); Mean Platelet Volume 9.7 fL (9.5-13.5); Monocytes Absolute Auto 0.6 10^3/uL (0.3-0.8); Monocytes Percent Auto 3.4 % (1.7-12.0); Neutrophils Absolute Auto 14.5 10^3/uL (1.4-6.5); Neutrophils Percent Auto 89.6 % (43.0-75.0); Platelet Count 206 10^3/uL (150-450); Red Blood Count 4.92 10^6/uL (4.70-6.10); Red Cell Distribution Width 15.1 % (11.0-15.0); White Blood Count 16.2 10^3/uL (4.0-11.0)
[2023-09-06 04:58] LABS: Anion Gap 9.1; Calcium 8.3 mg/dL (8.5-10.1); Carbon Dioxide 26.7 mmol/L (21.0-32.0); Chloride 109 mmol/L (98-107); Estimated GFR (African America >60 (>=60); Estimated GFR (Non-African Ame >60 (>=60); Glucose 140 mg/dL (74-106); Potassium 3.8 mmol/L (3.5-5.1); Sodium 141 mmol/L (136-145)
[2023-09-06] MEDS: PRIMIDONE 50 MG TABLET PO (05:43)
[2023-09-06] MEDS: PIPERACILLIN SODIUM/TAZOBACTAM 3.375 GM in 0.9 % SODIUM CHLORIDE 50 ML IV (05:43)
[2023-09-06 05:54] VITALS: BP 171/90; PULSE 96; RESP 16; TEMP 36.5; O2SAT 95
--- NOTE | 2023-09-06 07:59 | P.DS_ITS ---
DS: Providers Provider Date of admission: 09/03/23 07:45 Primary care physician: Guicho Lerma MD DS: Diagnosis Discharge Diagnosis (1) Weakness: (2) Acute dyspnea: Plan Mild hypoxia resolved today, . Lactic acidosis pending with leukocytosis, respiratory alkalosis secondary to right lower lobe pneumonia. Leukocytosis with left shift secondary to right lower lobe pneumonia Hyperglycemia likely steroid-induced Hypertension Coronary artery disease DS: Summary Hospital Course Hospital Course: Patient mated with failed outpatient treatment for pneumonia. Was treated with cefdinir and doxycycline. Dyspnea sputum production persisted despite treatment. So patient was admitted for IV antibiotics. Started Levaquin and Zosyn. Sputum culture only grew yeast but this was already collected after he was started on both of those antibiotics. Dyspnea slow to improve. Chest x-ray was clear but egophony and rhonchi right lower lobe consistent with pneumonia. He is improved today. Much less sputum production. Ambulating with less dyspnea. Suspect dyspnea will slowly improve over the next week or 2. He can be discharged home in improving condition. Medications see list. See me in the office in 3 to 4 days. Time Spent with Patient Time attestation: Total time spent providing and/or coordinating discharge services: Exam Constitutional Vital Signs, click to edit/add: Last Vital Signs Temp 97.7 F 09/06/23 05:54 Pulse 96 H 09/06/23 05:54 Resp 16 09/06/23 05:54 BP 171/90 H 09/06/23 05:54 Pulse Ox 95 09/06/23 05:54 O2 Del Method Room Air 09/06/23 05:54 Documenting provider has reviewed patient's vital signs: yes Common normals: no apparent distress Chest Common normals: inspection of chest normal Respiratory Common normals: abnormal respiratory effort Auscultation: rhonchi (Still have rhonchi in right lower lobe but egophony has resolved); no wheezes (Just had aerosol treatment) and no egophony (Could not appreciate the change today) Cardio Common normals: no JVD, regular rate, regular rhythm and no murmurs GI Common normals: Normal to inspection, nondistended, normoactive bowel sounds present Extremity Common normals: normal to inspection (No edema) and full ROM DS: Data Data Completed and Pending Labs on day of discharge: Labs from last 24 hours 09/06/23 09/05/23 09/05/23 04:11 22:24 16:34 WBC 16.2 H RBC 4.92 Hgb 14.4 Hct 44.5 MCV 90.4 MCH 29.3 MCHC 32.4 RDW 15.1 H Plt Count 206 MPV 9.7 Neut % (Auto) 89.6 H Lymph % (Auto) 4.0 L [place] % (Auto) 3.4 Eos % (Auto) 0.0 L Baso % (Auto) 0.1 L Neut # (Auto) 14.5 H Lymph # (Auto) 0.6 L [place] # (Auto) 0.6 Eos # (Auto) 0.0 Baso # (Auto) 0.0 Abs Immat Gran (auto) 0.47 H Imm/Tot Granulo (auto) 2.9 H Sodium 141 Potassium 3.8 Chloride 109 H Carbon Dioxide 26.7 Anion Gap 9.1 BUN 24.0 H Creatinine 0.89 Est GFR ( Amer) >60 Est GFR (Non-Af Amer) >60 BUN/Creatinine Ratio 27.0 Glucose 140 H Calcium 8.3 L NT-Pro-B Natriuret Pep 171.0 POC Glucose 134 H 151 H 09/05/23 11:11 WBC RBC Hgb Hct MCV MCH MCHC RDW Plt Count MPV Neut % (Auto) Lymph % (Auto) [place] % (Auto) Eos % (Auto) Baso % (Auto) Neut # (Auto) Lymph # (Auto) [place] # (Auto) Eos # (Auto) Baso # (Auto) Abs Immat Gran (auto) Imm/Tot Granulo (auto) Sodium Potassium Chloride Carbon Dioxide Anion Gap BUN Creatinine Est GFR ( Amer) Est GFR (Non-Af Amer) BUN/Creatinine Ratio Glucose Calcium NT-Pro-B Natriuret Pep POC Glucose 136 H Preliminary micro results at discharge 09/02/23 14:30 - Preliminary Blood NO GROWTH AT 36-48 HOURS. FINAL TO FOLLOW. 09/02/23 13:41 Blood Culture Result 1 - Preliminary Blood NO GROWTH AT 36-48 HOURS. FINAL TO FOLLOW. Discharge Plan Discharge Disposition: Home, Self-Care Condition: Good Discharge Medications: New benzonatate 100 mg Capsule 200 mg PO Q8H PRN (Reason: Cough) Qty: 20 0RF fluconazole 100 mg Tablet 200 mg PO QD Qty: 20 0RF Rx Instructions: Tolerating levofloxacin and diflucan in the hospital montelukast 10 mg Tablet 10 mg PO QHS Qty: 30 11RF fluticasone propionate 50 mcg/actuation [place],Suspension 2 spray intranasal QD Qty: 16 11RF levofloxacin 750 mg tablet 750 mg PO DAILY 7 Days Qty: 7 0RF Rx Instructions: Tolerating levofloxacin and diflucan in the hospital prednisone 10 mg tablet 50 mg PO DAILY Qty: 47 0RF Rx Instructions: 5/day for 3 days. 4/day for 3 days, 3/day for 3 days, 2/day for 3 days, 1/day for 3 days, 1/2 /day for 4 days Continued lisinopril 40 mg tablet 40 mg PO .QD primidone 50 mg tablet 50 mg PO BID meloxicam 15 mg tablet 15 mg PO DAILY tamsulosin 0.4 mg capsule 0.4 mg PO Q24H potassium citrate 10 mEq (1,080 mg) tablet extended release 10 meq PO BID simvastatin 20 mg tablet 20 mg PO .QHS hydrochlorothiazide 12.5 mg capsule 12.5 mg PO QDAY allopurinol 300 mg tablet 300 mg PO DAILY solifenacin 10 mg tablet 10 mg PO DAILY aspirin 81 mg capsule 81 mg PO DAILY Qty: 30 11RF Forms: Portal Instructions Follow Up Appointments: call to reschedule stress test following discharge
[2023-09-06 09:45] VITALS: BP 152/72
[2023-09-06] MEDS: LISINOPRIL 20 MG TABLET 40 MG PO (09:45)
[2023-09-06] MEDS: FLUCONAZOLE 100 MG TABLET 200 MG PO (09:45)
[2023-09-06] MEDS: ASPIRIN 81 MG TAB.CHEW PO (09:45)
[2023-09-06 09:46] VITALS: BP 152/72
[2023-09-06] MEDS: CLONIDINE HCL 0.1 MG TABLET PO (09:46)
[2023-09-06] MEDS: ATORVASTATIN CALCIUM 10 MG TABLET PO (09:46)
[2023-09-06] MEDS: TAMSULOSIN HCL 0.4 MG CAPSULE PO (09:46)
[2023-09-06] MEDS: ALLOPURINOL 300 MG TABLET PO (09:46)
[2023-09-06] MEDS: MELOXICAM 7.5 MG TABLET 15 MG PO (09:47)
[2023-09-06] MEDS: POTASSIUM CITRATE 10 MEQ ER TABLET PO (09:47)
[2023-09-06] MEDS: FLUTICASONE PROPIONATE 50 MCG NASAL SPRAY 2 SPRAY NS (09:47)
[2023-09-06 11:15] LABS: Glucometer 155 mg/dL (74-106)
[2023-09-06] MEDS: LEVOFLOXACIN IN DEXTROSE 5 % 750 MG/150 ML IV.SOLN 100 MG IV (11:27)
--- NOTE | 2023-09-08 15:53 | CM.DCFOLLOWU ---
Person spoke with: Tom How are you feeling? Much better How is your pain? No pain Did you understand your discharge instructions? Yes Do you have any questions about your discharge instructions? No Were you given any prescriptions at discharge? Yes Were you able to get your prescriptions filled? Yes Do you understand how to take your medications as ordered? Yes Do you have any questions about your follow up appointment and do you plan to keep your follow up appointment? I see Dr. Lerma this week and he will schedule my stress test. Is there anything else that you would like to discuss? No Questions/Comments/Concerns/Other:
== END 2023-09-06 13:25 | disposition home or self-care (01) | DRG 194 ==
LOC: ER 15:29 → MS 16:04
PROVIDERS: Family Medicine; Internal Medicine; Physician Assistant; Admitting Provider Family Medicine; Emergency Provider Emergency Medicine; PCP Family Medicine; Visit Provider Family Medicine
DX: J18.9 Pneumonia, unspecified organism (principal); E87.20 Acidosis, unspecified; E87.3 Alkalosis; R06.00 Dyspnea, unspecified; E86.0 Dehydration; D72.829 Elevated white blood cell count, unspecified; R09.02 Hypoxemia; I10 Essential (primary) hypertension; I25.10 Atherosclerotic heart disease of native coronary artery without angina pectoris; R73.9 Hyperglycemia, unspecified; T38.0X5A Adverse effect of glucocorticoids and synthetic analogues, initial encounter; Z79.82 Long term (current) use of aspirin; Z79.899 Other long term (current) 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; Z87.891 Personal history of nicotine dependence; Z85.828 Personal history of other malignant neoplasm of skin; Z98.49 Cataract extraction status, unspecified eye; Z96.0 Presence of urogenital implants; Z83.3 Family history of diabetes mellitus; Z82.49 Family history of ischemic heart disease and other diseases of the circulatory system; Z80.9 Family history of malignant neoplasm, unspecified
CPT/HCPCS: 0202U; 36415; 70450; 71045; 71046; 80048; 80053; 82140; 82800; 82948; 83605; 83735; 83880; 84145; 84436; 84443; 84481; 84484; 85007; 85025; 85027; 85610; 87040; 87070; 87106; 87205; 93005; 94640; 94667; 94668; 94761; 96361; 96365; 96366; 96367; 96368; 96375; 96376; 99285; G0378; J0456; J0696; J2543; J2930

== ENCOUNTER 2023-09-24 08:44 | Outpatient (OUT) | payer MEDICARE, OTHER, SELFPAY ==
--- NOTE | 2023-09-24 07:45 | NM_ITS ---
Patient Name: RIZWAN LOCK MR#: [id number] : 1950 Exam Date: 09/24/2023 Ordering Doctor: DR Guicho Lerma . RADIOLOGY REPORT PROCEDURE: NM EDIE PERF SPECT REST STR COMPARISON: None. INDICATIONS: CHEST PAIN TECHNIQUE: Exam Description: Stress/Rest two day protocol gated SPECT Rest Imagin.9 mCi Tc-99m Cardiolite IV on 09/24/2023 Stress Imaging 26.6 mCi Tc-99m Cardiolite IV on 09/30/2023 Exercise Protocol: Ronny Heart Rate (bpm): Rest: 74 Max: 97 PMHR: 65 Blood Pressure: Rest: 148/82 Max: 148/82 Symptoms: Rest and peak stress ECG findings were normal and the exercise portion of the study was normal per attending physician Dr. Coleman . For more details please see separate cardiac stress test report. FINDINGS: QUALITY OF STUDY: Excellent. PERFUSION DEFECT: None. LOCATION: N/A SIZE: N/A. SEVERITY: N/A. TYPE: N/A. WALL MOTION: Normal. LV SIZE: Normal. 91 mL. TID / TCD: None; 1.0 LVEF: Normal. Calculated EF 67%. SUMMARY: Myocardial perfusion imaging study is NORMAL. CONCLUSION: 1. Normal nuclear medicine myocardial perfusion scan. Dictated by: Khai Salazar M.D. on 10/02/2023 at 08:05 Approved by: Khai Salazar M.D. on 10/02/2023 at 08:10
--- OUTSIDE RECORDS SUMMARY | 2023-09-24 09:06 | XMS_ITS | CCD ---
Author Name Unknown Address [address] [facility] [address] [place] [address] Organization [facility] Care Team Providers Care Steamship Agent Name Role Phone MD Marielle Lerma Primary Care Provider [phone] MD Miki Zeng Attending Provider Marielle [...] Medication Allergies] Propensity to adverse reactions (disorder) [facility] Repository Medications Current Medications Medication Drug Class(es) [...] mouth every four to six hours Hydrocodone-Acetaminophen ([place]) 5-325 mg tablet Active 1 TAB PO EVERY 4-6 HOURS 40 7 September 28, 2019 1:45pm allopurinol 300 mg oral tablet (2 sources) Xanthine Oxidase Inhibitor Start: 03-10-2023 take 1 tablet by mouth once daily allopurinol 300 mg Tab 300 mg = 1 tab(s), Oral, Daily, # 90 tab(s), Refills(s) 3, Pharmacy: [facility]/pharmacy #[id number], 180, cm, 08/19/22 9:50:00 EST, Height/Length Dosing, 136.2, kg, 08/19/22 9:50:00 EST, Weight Dosing Start Date: 03/10/23 Status: Ordered Start: 02-25-2022 allopurinol 30 0 mg Tab 150 mg = 0.5 tab(s), Oral, Daily, # 30 tab(s), Refills(s) 11, Pharmacy: [facility] [address], 180, cm, 02/25/22 14:22:00 EDT, [...] Daily, # 90 cap(s), Refills(s) 3, Pharmacy: [facility]/pharmacy #[id number], 180, cm, 08/19/22 9:50:00 EST, Height/Length Dosing, 136.2, kg, 08/19/22 9:50:00 EST, Weight Dosing Start Date: 08/19/22 Status: Ordered Start: 02-25-2022 take 1 capsule by mo [facility] once daily hydrochlorothiazide 12.5 mg Cap 12.5 mg = 1 cap(s), Oral, Daily, # 30 cap(s), Refills(s) 6, Pharmacy: [facility] [address]72, 180, cm, 02/25/22 14:22:00 EDT, [...] PO Twice daily January 02, 2018 9:35am Yaplwhai-Jpd-Ho-Lycopen-Lute in (Centrum Silver) 0.4-300-250 mg-mcg-mcg Tablet (1 source) Start: 09-02-2019 take 1 tablet by mouth once daily Ojrlrkks-Jgz-Ih-Lycopen-Lutein (Centrum Silver) 0.4-300-250 mg-mcg-mcg Tablet Active 1 [...] tab(s), Oral, BID, 60 tab(s), Refill(s) 11, [facility]/pharmacy #[id number], 180, cm, 04/11/23 11:56:00 EDT, Height/Length [...] BID, # 90 tab(s), Refills(s) 3, Pharmacy: [facility]/pharmacy #[id number], 180, cm, 08/19/22 9:50:00 EST, Height/Length Dosing, 136.2, kg, 08/19/22 9:50:00 EST, Weight Dosing Start Date: 08/19/22 Status: Ordered solifenacin succinate 10 mg oral tablet (2 sources) Cholinergic Muscarinic Antagonist Start: 04-08-2022 End: 12-23-2024 take 1 tablet by mouth once daily Vesicare 10 mg Tab 10 mg = 1 tab(s), Oral, Daily, X 90 day(s), # 90 tab(s), Refills(s) 11, Pharmacy: [facility], 180, cm, 02/25/22 14:22:00 EDT, Height/Length Dosing, 135, kg, 02/25/22 14:22:00 EDT, Weight Dosing Start Date: 04/08/22 Stop Date: 12/23/24 Status: Ordered Start: 02-25-2022 take 1 tablet by isa once daily Vesicare 10 mg Tab 10 mg = 1 tab(s), Oral, Daily, # 30 tab(s), Refills(s) 11, Pharmacy: [facility]/pharmacy #[id number], 180, cm, 02/25/22 14:22:00 EDT, Height/Length Dosing, 135, kg, 02/25/22 14:22:00 EDT, Weight Dosing Start Date: 02/25/22 Status: Ordered tadalafil 20 mg oral tablet (3 sources) Phosphodiesterase 5 Inhibitor Start: 10-23-2021 take 1 tablet by mouth once daily Cialis 20 mg Tab 20 mg = 1 tab(s), Oral, Daily, # 30 tab(s), Refills(s) 6, Pharmacy: [facility]/pharmacy #[id number], 180, cm, 10/22/21 14:56:00 EDT, Height/Length [...] Daily, # 90 cap(s), Refills(s) 3, Pharmacy: [facility]/pharmacy #[id number], 180, cm, 04/11/23 11:56:00 EDT, Height/Length [...] Coronary atherosclerosis; Translations: [Atherosclerotic heart disease of [place] coronary artery without angina pectoris] Onset: 11-05-2021 [...] Onset: 08-01-2022 Chronic Other 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) shelter (current) use of aspirin; Translations: [LONG-TERM CURRENT USE OF ASPIRIN] Onset: 08-01-2022 Episodic Other 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) Other buttermaker (current) 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; Translations: [OTH MANAGER OF INTERNAL CURRENT DRUG THERAPY] Onset: 08-01-2022 Episodic Other [...] Onset: 02-18-2022 Episodic Other 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) meterman (current) use of anticoagulants; Translations: [LONG-TERM CURRNT USE ANTICOAGULANTS] Onset: 11-05-2021 Episodic Other [...] Urnls Dip Stick Auto w/o Microscopy POC 73660 Your Care Team Attending Physician - THOR [...] BATISTA, Miki Cedeño Where: [facility] Patient Educationon 04-11-20 23 Patient Education Nephrology [...] ? 8 oz (237 mL) of milk, lwnmcav-wuxfyokaricd-txqc y milk, and calcium-fortifiedfruit juice. Calcium-fortified means [...] Spinach (cooked), rhubarb, beets, sweet potatoes, and [place]orese chard. ? Peanuts. ? Potato chips, gibraltarian fries, and baked potatoes with skin on. ? Nuts and nut products. ? Chocolate. ? If you regularly take a diuretic medicine, make sure to eat at least 1 or 2 servings of fruits or vegetables that are high in potassium each day. These include: ? Avocado. ? Banana. ? [place]yg[place], prune, carrot, or tomato juice. ? Baked [...] fish oil, or vitamin B6. ? Take hruc-pxl-dmjysae and prescription medicines only as told by your health care provider. These include supplements. What foods should I limit? Limit your in (more content not included)... Normal [facility] Urology Office/Clinic Noteon 04-11-2023 Urology Office/Clinic Note [...] [facility] [address], [place] [address]- Additional Instructions: Patient Education Dietary Guidelines to Help Prevent Kidney Stone (more content not included)... Normal [facility] Comment on above: Result Comment: Elec tronically Signed By: Miki ZENG MD\.br\Date and Time Signed: 04/11/23 12:49 EDT\.br\Electronically Co-Signed By: Sherice Cloud\.br\Date and Time Co-Signed: 04/11/23 12:48 EDT RAD - Ultrasound Reporton RAD - Ultrasound Report [id number]:12 7 [facility] RAD - Ultrasound Report [id number]:12 7 [facility] Screenson 08-20-2022 Screens [id number]:12 7 [facility] Ambulatory Visit Summaryon 0 08-19-2022 Ambulatory Visit Summary TOM APARICIO :1950 Visit Date:08/19/2022 Ambulatory Visit Instructions Your Diagnosis BPH with urinary obstruction Kidney stone Nocturia Impotence Other obstructive and reflux uropathy Tests Performed Urnls Dip Stick Auto w/o Microscopy POC 83074 US Renal -- Results Pending -- Please [...] BATISTA, Miki Cedeño Where: [facility] Patient Educationon 08-19-19 Patient Education Urology Benign [...] Follow these instructions at home: ? Take ozcv-ebt-xkfazsh and prescription medicines only as told by [...] You d (more content not included)... Normal [facility] Urology Office/Clinic Noteon 08-19-2022 Urology Office/Clinic Note [...] [facility] [address], [place] [address]- [phone] Additional Instructions: w/ renal US Patient Education Benign Prostatic Hyperplasia I, Brenda Lopez, personally scribed for Dr. Zeng on 08/19/2022 10:37:52. . Documentation recorded by the scribeBrenda, accurately reflects the services(s) I performed and decisions made by me. Authenticated by Dr. eZng on 08/19/2022 10:44:46. Problem List/Past Medical History [...] Medications acetaminophen-h (more content not included)... Normal [facility] Comment on above: Result Comment: Elec tronically Signed By: Miki ZENG MD\.br\Date and Time Signed: 08/19/22 10:44 EST\.br\Electronically Co-Signed By: Brenda Lopez\.br\Date and Time Co-Signed: 08/19/22 10:38 EST CBC AUTO DIFFon 07-27-2022 BASO # 0.1 103/ul Normal 0.0-0.1 [facility] Comment on above: Performed By: #### U DINA, LIPID, TSH, BNP, CMP, T7 #### [facility] [address] [place] [address] Dr. Suzie Brooks Basophils/100 WBC (Bld) 0.5 % Normal 0.2-2.0 [facility] Comment on above: Performed By: #### U DINA, LIPID, TSH, BNP, CMP, T7 #### [facility] [address] [place] [address] Dr. Suzie Brooks EO # 0.4 103/ul Normal 0.0-0.7 [facility] Comment on above: Performed By: #### U DINA, LIPID, TSH, BNP, CMP, T7 #### [facility] [address] [place] [address] Dr. Suzie Brooks Eosinophils/100 WBC (Bld) 3.3 % Normal 0.9-7.0 [facility] Comment on above: Performed By: #### U DINA, LIPID, TSH, BNP, CMP, T7 #### [facility] [address] [place] [address] Dr. Suzie Brooks Erythrocyte distribution width (RBC) [Ratio] 14.6 % Normal 11.0-15.0 [facility] Comment on above: Performed By: #### U DINA, LIPID, TSH, BNP, CMP, T7 #### [facility] [address] [place] [address] Dr. Suzie Brooks Hematocrit (Bld) [Volume fraction] 42.0 % Normal 42.0-54.0 [facility] Comment on above: Performed By: #### U DINA, LIPID, TSH, BNP, CMP, T7 #### [facility] [address] [place] [address] Dr. Suzie Brooks Hemoglobin (Bld) [Mass/Vol] 14.1 g/dL Normal 14.0-18.0 [facility] Comment on above: Performed By: #### U DINA, LIPID, TSH, BNP, CMP, T7 #### [facility] [address] [place] [address] Dr. Suzie Brooks IG # 0.03 10e3/ul Normal 0.00-0.03 [facility] Comment on above: Performed By: #### U DINA, LIPID, TSH, BNP, CMP, T7 #### [facility] [address] [place] [address] Dr. Suzie Brooks IG % 0.3 % Normal 0.0-0.5 [facility] Comment on above: Performed By: #### U DINA, LIPID, TSH, BNP, CMP, T7 #### [facility] [address] [place] [address] Dr. Suzie Brooks LYMPH # 3.1 103/ul Normal 1.2-3.8 [facility] Comment on above: Performed By: #### U DINA, LIPID, TSH, BNP, CMP, T7 #### [facility] [address] [place] [address] Dr. Suzie Brooks Lymphocytes/100 WBC (Bld) 28.2 % Normal 20.5-60.0 [facility] Comment on above: Performed By: #### U DINA, LIPID, TSH, BNP, CMP, T7 #### [facility] [address] [place] [address] Dr. Suzie Brooks MANUAL DIFF REQ NO Normal [facility] Comment on above: Performed By: #### U DINA, LIPID, TSH, BNP, CMP, T7 #### [facility] [address] [place] [address] Dr. Suzie Brooks MCH (RBC) [Entitic mass] 28.5 pg Normal 25.9-34.0 [facility] Comment on above: Performed By: #### U DINA, LIPID, TSH, BNP, CMP, T7 #### [facility] [address] [place] [address] Dr. Suzie Brooks MCHC (RBC) [Mass/Vol] 33.6 g/dL Normal 29.9-35.2 [facility] Comment on above: Performed By: #### U DINA, LIPID, TSH, BNP, CMP, T7 #### [facility] [address] [place] [address] Dr. Suzie Brooks MCV (RBC) [Entitic vol] 85.0 fL Normal 80.0-94.0 [facility] Comment on above: Performed By: #### U DINA, LIPID, TSH, BNP, CMP, T7 #### [facility] [address] [place] [address] Dr. Suzie Brooks MONO # 0.8 103/ul Normal 0.3-0.8 [facility] Comment on above: Performed By: #### U DINA, LIPID, TSH, BNP, CMP, T7 #### [facility] [address] [place] [address] Dr. Suzie Brooks Monocytes/100 WBC (Bld) 7.2 % Normal 1.7-12.0 [facility] Comment on above: Performed By: #### U DINA, LIPID, TSH, BNP, CMP, T7 #### [facility] [address] [place] [address] Dr. Suzie Brooks NEUT # 6.7 103/ul Critically high 1.4-6.5 [facility] Comment on above: Performed By: #### U DINA, LIPID, TSH, BNP, CMP, T7 #### [facility] [address] [place] [address] Dr. Suzie Brooks Neutrophils/100 WBC (Bld) 60.5 % Normal 43.0-75.0 [facility] Comment on above: Performed By: #### U DINA, LIPID, TSH, BNP, CMP, T7 #### [facility] [address] [place] [address] Dr. Suzie Brooks Platelet mean volume (Bld) [Entitic vol] 9.6 fL Normal 9.5-13.5 [facility] Comment on above: Performed By: #### U DINA, LIPID, TSH, BNP, CMP, T7 #### [facility] [address] [place] [address] Dr. Suzie Brooks PLT 266 103/ul Normal 150-450 [facility] Comment on above: Performed By: #### U DINA, LIPID, TSH, BNP, CMP, T7 #### [facility] [address] [place] [address] Dr. Suzie Brooks RBC 4.94 106/ul Normal 4.70-6.10 [facility] Comment on above: Performed By: #### U DINA, LIPID, TSH, BNP, CMP, T7 #### [facility] [address] [address] [address] Suzie Brooks WBC 11.1 103/ul Critically high 4.0-11.0 [facility] Comment on above: Performed By: #### U DINA, LIPID, TSH, BNP, CMP, T7 #### [facility] [address] [address] [address] Suzie Brooks PROF 14(COMP METB)on 022 Albumin [Mass/Vol] 3.2 g/dL Critically low 3.4-5.0 [facility] Comment on above: Performed By: #### C VDTBH #### [facility] [address] [place] [address] Dr. Suzie Brooks Albumin/Globulin [Mass ratio] 0.9 {ratio} Normal [facility] Comment on above: Performed By: #### C VDTBH #### [facility] [address] [place] [address] Dr. Suzie Brooks ALP [Catalytic activity/Vol] 60 U/L Normal 46-116 [facility] Comment on above: Performed By: #### C VDTBH #### [facility] [address] [place] [address] Dr. Suzie Brooks ALT [Catalytic activity/Vol] 27 U/L Normal 16-63 [facility] Comment on above: Performed By: #### C VDTBH #### [facility] [address] [place] [address] Dr. Suzie Brooks Anion gap [Moles/Vol] 10.4 mmol/L Normal [facility] Comment on above: Performed By: #### C VDTBH #### [facility] [address] [place] [address] Dr. Suzie Brooks AST [Catalytic activity/Vol] 23 U/L Normal 15-37 [facility] Comment on above: Performed By: #### C VDTBH #### [facility] [address] [place] [address] Dr. Suzie Brooks Bilirubin [Mass/Vol] 0.4 mg/dL Normal 0.2-1.0 [facility] Comment on above: Performed By: #### C VDTBH #### [facility] [address] [address] [address] Suzie Brooks Calcium [Mass/Vol] 8.4 mg/dL Critically low 8.5-10.1 [facility] Comment on above: Performed By: #### C VDTBH #### [facility] [address] [place] [address] Dr. Suzie Brooks Chloride [Moles/Vol] 104 mmol/L Normal 98-107 [facility] Comment on above: Performed By: #### C VDTBH #### [facility] [address] [address] [address] Suzie Brooks CO2 [Moles/Vol] 26.1 mmol/L Normal 21.0-32.0 [facility] Comment on above: Performed By: #### C VDTBH #### [facility] [address] [place] [address] Dr. Suzie Brooks Creatinine [Mass/Vol] 0.90 mg/dL Normal 0.70-1.30 [facility] Comment on above: Performed By: #### C VDTBH #### [facility] [address] [place] [address] Dr. Suzie Brooks EGFR-AF ANGOLAN >60 Normal >=60 [facility] Comment on above: Performed By: #### C VDTBH #### [facility] [address] [place] [address] Dr. Suzie Brooks EGFR-NON AF ANGOLAN >60 Normal >=60 [facility] Comment on above: Performed By: #### C VDTBH #### [facility] [address] [place] [address] Dr. Suzie Brooks Globulin (S) [Mass/Vol] 3.4 g/dL Normal [facility] Comment on above: Performed By: #### C VDTBH #### [facility] [address] [place] [address] Dr. Suzie Brooks Glucose [Mass/Vol] 111 mg/dL Critically high 74-106 [facility] Comment on above: Performed By: #### C VDTBH #### [facility] [address] [address] [address] Suzie Brooks Potassium [Moles/Vol] 3.5 mmol/L Normal 3.5-5.1 [facility] Comment on above: Performed By: #### C VDTBH #### [facility] [address] [place] [address] Dr. Suzie Brooks Protein [Mass/Vol] 6.6 g/dL Normal 6.4-8.2 [facility] Comment on above: Performed By: #### C VDTBH #### [facility] [address] [place] [address] Dr. Suzie Brooks Sodium [Moles/Vol] 137 mmol/L Normal 136-145 [facility] Comment on above: Performed By: #### C VDTBH #### [facility] [address] [place] [address] Dr. Suzie Brooks Urea nitrogen [Mass/Vol] 13.0 mg/dL Normal 7.0-18.0 [facility] Comment on above: Performed By: #### C VDTBH #### [facility] [address] [place] [address] Dr. Suzie Brooks Urea nitrogen/Creatinine [Mass ratio] 14.4 mg/mg Normal [facility] Comment on above: Performed By: #### C VDTBH #### [facility] [address] [place] [address] Dr. Suzie Brooks BNPon 07-26-2022 Natriuretic peptide B (Bld) [Mass/Vol] 118.0 pg/mL Normal <=900.0 [facility] Comment on above: Performed By: #### U DINA, LIPID, TSH, BNP, CMP, T7 #### [facility] [address] [place] [address] Dr. Suzie Brooks CARDIAC JM 3-6on 2 CK [Catalytic activity/Vol] 240 U/L Normal 39-308 [facility] Comment on above: Performed By: #### U DINA, LIPID, TSH, BNP, CMP, T7 #### [facility] [address] [place], [place] [address] Dr. Suzie Brooks CK.MB [Mass/Vol] 3.43 ng/mL Normal <=3.60 [facility] Comment on above: Performed By: #### U DINA, LIPID, TSH, BNP, CMP, T7 #### [facility] [address] [address] [address] Suzie Brooks HSTROP 8.6 pg/mL Normal 4.0-76.1 [facility] Comment on above: Result Comment: CUT- OFF POINTS HAVE BEEN ESTABLISHED BASED ON THE FOURTH UNIVERSAL DEFINITIONS OF MYOCARDIAL INFARCTION. THE UPPER REFERENCE LIMIT (URL) OF TROPONIN, DEFINED THE 99TH PERCENTILE OF cTnI DISTRIBUTION IN A REFERENCE POPULATION, HAS BEEN CONFIRMED THE DECISION THRESHOLD FOR FL DIAGNOSIS. Performed By: #### U DINA, LIPID, TSH, BNP, CMP, T7 #### [facility] [address] [place] [address] Dr. Suzie Brooks CK [Catalytic activity/Vol] 239 U/L Normal 39-308 [facility] Comment on above: Performed By: #### M AG24 #### [facility] [address] [place] [address] Dr. Suzie Brooks CK.MB [Mass/Vol] 2.93 ng/mL Normal <=3.60 [facility] Comment on above: Performed By: #### M AG24 #### [facility] [address] [place] [address] Dr. Suzie Brooks HSTROP 10.4 pg/mL Normal 4.0-76.1 [facility] Comment on above: Result Comment: CUT- OFF POINTS HAVE BEEN ESTABLISHED BASED ON THE FOURTH UNIVERSAL DEFINITIONS OF MYOCARDIAL INFARCTION. THE UPPER REFERENCE LIMIT (URL) OF TROPONIN, DEFINED THE 99TH PERCENTILE OF cTnI DISTRIBUTION IN A REFERENCE POPULATION, HAS BEEN CONFIRMED THE DECISION THRESHOLD FOR FL DIAGNOSIS. Performed By: #### M AG24 #### [facility] [address] [place] [address] Dr. Suzie Brooks CARDIAC MJ ADMITon 07-26-2 022 CK [Catalytic activity/Vol] 234 U/L Normal 39-308 [facility] Comment on above: Performed By: #### O X24HR #### [facility] [address] [place] [address] Dr. Suzie Brooks CK.MB [Mass/Vol] 3.37 ng/mL Normal <=3.60 [facility] Comment on above: Performed By: #### O X24HR #### [facility] [address] [place] [address] Dr. Suzie Broosk HSTROP 9.0 pg/mL Normal 4.0-76.1 [facility] Comment on above: Result Comment: CUT- OFF POINTS HAVE BEEN ESTABLISHED BASED ON THE FOURTH UNIVERSAL DEFINITIONS OF MYOCARDIAL INFARCTION. THE UPPER REFERENCE LIMIT (URL) OF TROPONIN, DEFINED THE 99TH PERCENTILE OF cTnI DISTRIBUTION IN A REFERENCE POPULATION, HAS BEEN CONFIRMED THE DECISION THRESHOLD FOR FL DIAGNOSIS. Performed By: #### O X24HR #### [facility] [address] [place] [address] Dr. Suzie Brooks EDIE 85 ng/mL Normal 16-96 [facility] Comment on above: Performed By: #### O X24HR #### [facility] [address] [place] [address] Dr. Suzie Brooks CBC AUTO DIFFon 07-26-2022 BASO # 0.1 103/ul Normal 0.0-0.1 [facility] Comment on above: Performed By: #### U DINA, LIPID, TSH, BNP, CMP, T7 #### [facility] [address] [place] [address] Dr. Suzie Brooks Basophils/100 WBC (Bld) 0.4 % Normal 0.2-2.0 [facility] Comment on above: Performed By: #### U DINA, LIPID, TSH, BNP, CMP, T7 #### [facility] [address] [place] [address] Dr. Suzie Brooks EO # 0.3 103/ul Normal 0.0-0.7 [facility] Comment on above: Performed By: #### U DINA, LIPID, TSH, BNP, CMP, T7 #### [facility] [address] [place] [address] Dr. Suzie Brooks Eosinophils/100 WBC (Bld) 2.5 % Normal 0.9-7.0 [facility] Comment on above: Performed By: #### U DINA, LIPID, TSH, BNP, CMP, T7 #### [facility] [address] [place] [address] Dr. Suzie Brooks Erythrocyte distribution width (RBC) [Ratio] 14.4 % Normal 11.0-15.0 [facility] Comment on above: Performed By: #### U DINA, LIPID, TSH, BNP, CMP, T7 #### [facility] [address] [place] [address] Dr. Suzie Brooks Hematocrit (Bld) [Volume fraction] 46.0 % Normal 42.0-54.0 [facility] Comment on above: Performed By: #### U DINA, LIPID, TSH, BNP, CMP, T7 #### [facility] [address] [place] [address] Dr. Suzie Brooks Hemoglobin (Bld) [Mass/Vol] 15.6 g/dL Normal 14.0-18.0 [facility] Comment on above: Performed By: #### U DINA, LIPID, TSH, BNP, CMP, T7 #### [facility] [address] [place] [address] Dr. Suzie Brooks IG # 0.07 10e3/ul Critically high 0.00-0.03 [facility] Comment on above: Performed By: #### U DINA, LIPID, TSH, BNP, CMP, T7 #### [facility] [address] [place] [address] Dr. Suzie Brooks IG % 0.6 % Critically high 0.0-0.5 [facility] Comment on above: Performed By: #### U DINA, LIPID, TSH, BNP, CMP, T7 #### [facility] [address] [place] [address] Dr. Suzie Brooks LYMPH # 2.9 103/ul Normal 1.2-3.8 [facility] Comment on above: Performed By: #### U DINA, LIPID, TSH, BNP, CMP, T7 #### [facility] [address] [place] [address] Dr. Suzie Brooks Lymphocytes/100 WBC (Bld) 24.2 % Normal 20.5-60.0 [facility] Comment on above: Performed By: #### U DINA, LIPID, TSH, BNP, CMP, T7 #### [facility] [address] [place] [address] Dr. Suzie Brooks MANUAL DIFF REQ NO Normal [facility] Comment on above: Performed By: #### U DINA, LIPID, TSH, BNP, CMP, T7 #### [facility] [address] [place] [address] Dr. Suzie Brooks MCH (RBC) [Entitic mass] 28.6 pg Normal 25.9-34.0 [facility] Comment on above: Performed By: #### U DINA, LIPID, TSH, BNP, CMP, T7 #### [facility] [address] [place] [address] Dr. Suzie Brooks MCHC (RBC) [Mass/Vol] 33.9 g/dL Normal 29.9-35.2 [facility] Comment on above: Performed By: #### U DINA, LIPID, TSH, BNP, CMP, T7 #### [facility] [address] [place] [address] Dr. Suzie Brooks MCV (RBC) [Entitic vol] 84.4 fL Normal 80.0-94.0 [facility] Comment on above: Performed By: #### U DINA, LIPID, TSH, BNP, CMP, T7 #### [facility] [address] [place] [address] Dr. Suzie Brooks MONO # 0.8 103/ul Normal 0.3-0.8 [facility] Comment on above: Performed By: #### U DINA, LIPID, TSH, BNP, CMP, T7 #### [facility] [address] [place] [address] Dr. Suzie Brooks Monocytes/100 WBC (Bld) 6.7 % Normal 1.7-12.0 [facility] Comment on above: Performed By: #### U DINA, LIPID, TSH, BNP, CMP, T7 #### [facility] [address] [place] [address] Dr. Suzie Brooks NEUT # 7.8 103/ul Critically high 1.4-6.5 [facility] Comment on above: Performed By: #### U DINA, LIPID, TSH, BNP, CMP, T7 #### [facility] [address] [address] [address] Suzie Brooks Neutrophils/100 WBC (Bld) 65.6 % Normal 43.0-75.0 [facility] Comment on above: Performed By: #### U DINA, LIPID, TSH, BNP, CMP, T7 #### [facility] [address] [address] [address] Suzie Brooks Platelet mean volume (Bld) [Entitic vol] 9.7 fL Normal 9.5-13.5 [facility] Comment on above: Performed By: #### U DINA, LIPID, TSH, BNP, CMP, T7 #### [facility] [address] [address] [address] Suzie Brooks PLT 289 103/ul Normal 150-450 [facility] Comment on above: Performed By: #### U DINA, LIPID, TSH, BNP, CMP, T7 #### [facility] [address] [address] [address] Suzie Brooks RBC 5.45 106/ul Normal 4.70-6.10 [facility] Comment on above: Performed By: #### U DINA, LIPID, TSH, BNP, CMP, T7 #### [facility] [address] [address] [address] Suzie Brooks WBC 11.9 103/ul Critically high 4.0-11.0 [facility] Comment on above: Performed By: #### U DINA, LIPID, TSH, BNP, CMP, T7 #### [facility] [address] [place] [address] Dr. Suzie Brooks CTA CHEST WO W [...] BEHZAD CARRASQUILLO Date: 2022-07-26 11:59 Normal [facility] Covid-19 PCR (CVDTB)on 07-11 SARS-CoV-2 (COVID-19) RNA SUKHJINDER+probe Ql (Unsp spec) Not detected Normal NOT DETECTED [facility] Comment on above: Result Comment: When [...] for this test is supported by the [place] of Health and Human Service's declaration that [...] DINA, LIPID, TSH, BNP, CMP, T7 #### [facility] [address] [address] [address] Suzie Brooks D-DIMERon 07-26-2022 D-DIMER 0.88 mg/L FEU Critically high <=0.59 [facility] Comment on above: Performed By: #### C VDTBH #### [facility] [address] [place], [place] [address] Dr. Suzie Brooks D-DIMER COMMENTS SEE BELOW Normal [facility] Comment on above: Result Comment: Incr eases [...] hospitalization. Performed By: #### C VDTBH #### [facility] [address] [place] [id number] Suzie Brooks ECHOCARDIO M/2D COMPLETEon 1 09-26-2021 ECHOCARDIO M/2D COMPLETE Patient: TOM APARICIO Exam Date: 07/26/2022 : 1950 Gender:M Ordering : DR MARIELLE LERMA . Admission #: [id number] Family : Order #: [id number] CLICK HERE TO VIEW EXAM ECHOCARDIOGRAM REPORT [...] Rios M.D. on 07/26/2022 at 16:22 Normal [facility] PROF 14(COMP METB)on 022 Albumin [Mass/Vol] 3.6 g/dL Normal 3.4-5.0 [facility] Comment on above: Performed By: #### U DINA, LIPID, TSH, BNP, CMP, T7 #### [facility] [address] [address] [address] Suzie Brooks Albumin/Globulin [Mass ratio] 0.9 {ratio} Normal [facility] Comment on above: Performed By: #### U DINA, LIPID, TSH, BNP, CMP, T7 #### [facility] [address] [place] [address] Dr. Suzie Brooks ALP [Catalytic activity/Vol] 70 U/L Normal 46-116 [facility] Comment on above: Performed By: #### U DINA, LIPID, TSH, BNP, CMP, T7 #### [facility] [address] [place] [address] Dr. Suzie Brooks ALT [Catalytic activity/Vol] 30 U/L Normal 16-63 [facility] Comment on above: Performed By: #### U DINA, LIPID, TSH, BNP, CMP, T7 #### [facility] [address] [place] [address] Dr. Suzie Brooks Anion gap [Moles/Vol] 9.2 mmol/L Normal [facility] Comment on above: Performed By: #### U DINA, LIPID, TSH, BNP, CMP, T7 #### [facility] [address] [place] [address] Dr. Suzie Brooks AST [Catalytic activity/Vol] 29 U/L Normal 15-37 [facility] Comment on above: Performed By: #### U DINA, LIPID, TSH, BNP, CMP, T7 #### [facility] [address] [place] [address] Dr. Suzie Brooks Bilirubin [Mass/Vol] 0.5 mg/dL Normal 0.2-1.0 [facility] Comment on above: Performed By: #### U DINA, LIPID, TSH, BNP, CMP, T7 #### [facility] [address] [place] [address] Dr. Suzie Brooks Calcium [Mass/Vol] 8.8 mg/dL Normal 8.5-10.1 [facility] Comment on above: Performed By: #### U DINA, LIPID, TSH, BNP, CMP, T7 #### [facility] [address] [address] [address] Suzie Brooks Chloride [Moles/Vol] 102 mmol/L Normal 98-107 [facility] Comment on above: Performed By: #### U DNIA, LIPID, TSH, BNP, CMP, T7 #### [facility] [address] [address] [address] Suzie Brooks CO2 [Moles/Vol] 27.2 mmol/L Normal 21.0-32.0 [facility] Comment on above: Performed By: #### U DINA, LIPID, TSH, BNP, CMP, T7 #### [facility] [address] [address] [address] Suzie Brooks Creatinine [Mass/Vol] 0.99 mg/dL Normal 0.70-1.30 [facility] Comment on above: Performed By: #### U DINA, LIPID, TSH, BNP, CMP, T7 #### [facility] [address] [place] [address] Dr. Suzie Brooks EGFR-AF ANGOLAN >60 Normal >=60 [facility] Comment on above: Performed By: #### U DINA, LIPID, TSH, BNP, CMP, T7 #### [facility] [address] [place] [address] Dr. Suzie Brooks EGFR-NON AF ANGOLAN >60 Normal >=60 [facility] Comment on above: Performed By: #### U DINA, LIPID, TSH, BNP, CMP, T7 #### [facility] [address] [address] [address] Suzie Brooks Globulin (S) [Mass/Vol] 3.9 g/dL Normal [facility] Comment on above: Performed By: #### U DINA, LIPID, TSH, BNP, CMP, T7 #### [facility] [address] [place] [address] Dr. Suzie Brooks Glucose [Mass/Vol] 125 mg/dL Critically high 74-106 [facility] Comment on above: Performed By: #### U DINA, LIPID, TSH, BNP, CMP, T7 #### [facility] [address] [address] [address] Suzie Brooks Potassium [Moles/Vol] 3.4 mmol/L Critically low 3.5-5.1 [facility] Comment on above: Performed By: #### U DINA, LIPID, TSH, BNP, CMP, T7 #### [facility] [address] [place] [address] Dr. Suzie Brooks Protein [Mass/Vol] 7.5 g/dL Normal 6.4-8.2 [facility] Comment on above: Performed By: #### U DINA, LIPID, TSH, BNP, CMP, T7 #### [facility] [address] [place] [address] Dr. Suzie Brooks Sodium [Moles/Vol] 135 mmol/L Critically low 136-145 [facility] Comment on above: Performed By: #### U DINA, LIPID, TSH, BNP, CMP, T7 #### [facility] [address] [place] [address] Dr. Suzie Brooks Urea nitrogen [Mass/Vol] 15.0 mg/dL Normal 7.0-18.0 [facility] Comment on above: Performed By: #### U DINA, LIPID, TSH, BNP, CMP, T7 #### [facility] [address] [place] [address] Dr. Suzie Brooks Urea nitrogen/Creatinine [Mass ratio] 15.2 mg/mg Normal [facility] Comment on above: Performed By: #### U DINA, LIPID, TSH, BNP, CMP, T7 #### [facility] [address] [place] [address] Dr. Suzie Brooks PROTIMEon 07-26-2022 INR Coag (PPP) [Relative time] 0.95 {INR} Normal [facility] Comment on above: Performed By: #### C VDTBH #### [facility] [address] [place] [address] Dr. Suzie Brooks INR GUIDELINES SEE BELOW Normal [facility] Comment on above: Result Comment: TOMMY RED INR: 2.0 - 3.0 CONDITIONS NOT LISTED BELOW 2.5 - 3.5 FOR PROSTHETIC HEART VALVE REPLACEMENT 2.5 - 3.5 RECURRENT THROMBOSIS Performed By: #### C VDTBH #### [facility] [address] [address] [address] Suzie Brooks PT Coag (PPP) [Time] 10.3 s Normal 9.0-11.6 [facility] Comment on above: Performed By: #### C VDTBH #### [facility] [address] [place] [address] Dr. Suzie Brooks PTTon 07-26-2022 aPTT Coag (Bld) [Time] 28.2 s Normal 22.3-36.2 [facility] Comment on above: Performed By: #### C VDTBH #### [facility] [address] [place] [address] Dr. Suzie Brooks TSHon 07-26-2022 TSH 2.000 uIU/mL Normal 0.358-3.740 [facility] Comment on above: Performed By: #### O X24HR #### [facility] [address] [place] [address] Dr. Suzie Brooks XR CHEST 1 Von [...] by: BEHZAD CARRASQUILLO Date: 2022-07-26 10:51 Normal [facility] Reminderson 07-23-2022 Reminders - From: Aliza Recinos To: EU - Recalls Zeng; Sent: 05/30/2022 15:57:23 EDT Show up: 05/30/2022 15:57:00 EDT Subject: IVP Due Date/Time: 06/19/2022 15:57:00 EST Reminder/Recall Pt needs IVP prior in June. Pt uses [facility] for CS at [facility] to call and scheduled pt for the 7, 8, or 9 scheduled on 07/18/2022 at 10:30 completed and in pt's chart he has a f/u in august Normal [facility] Lab Reportson 07-21-2022 Lab Reports [id number]:12 [id number] Normal [facility] RAD - MISCon 07-21-2022 RAD - MISC [id number]:12 7 Normal [facility] CREATININEon 07-18-2022 Creatinine [Mass/Vol] 0.93 mg/dL Normal 0.70-1.30 [facility] Comment on above: Performed By: #### U DINA, LIPID, TSH, BNP, CMP, T7 #### [facility] [address] [address] [address] Suzie Brooks EGFR-AF ANGOLAN >60 Normal >=60 [facility] Comment on above: Performed By: #### U DINA, LIPID, TSH, BNP, CMP, T7 #### [facility] [address] [address] [address] Suzie Brooks EGFR-NON AF ANGOLAN >60 Normal >=60 [facility] Comment on above: Performed By: #### U DINA, LIPID, TSH, BNP, CMP, T7 #### [facility] [address] [address] [address] Suzie Brooks XR IVPon 07-18-2022 XR IVP EXAMINATION: XR IVP HISTORY: Kidney stone COMPARISON: XR KUB 11/21/2021, CT abdomen pelvis 02/16/2022 TECHNIQUE: After obtaining patient consent a compensation manager image was obtained followed by injection [...] BEHZAD CARRASQUILLO Date: 2022-07-18 11:50 Normal [facility] INSULINon 05-16-2022 Insulin 59.0 uIU/mL Critically high 2.6-24.9 The [facility] Comment on above: Performed By: #### U DINA, LIPID, TSH, BNP, CMP, T7 #### [facility] [address] [place] [address] Dr. Suzie Brooks BNPon 05-15-2022 Natriuretic peptide B (Bld) [Mass/Vol] 81.0 pg/mL Normal <=900.0 [facility] Comment on above: Performed By: #### U DINA, LIPID, TSH, BNP, CMP, T7 #### [facility] [address] [place] [address] Dr. Suzie Brooks CBC AUTO DIFFon 05-15-2022 BASO # 0.1 103/ul Normal 0.0-0.1 [facility] Comment on above: Performed By: #### C VDTBH #### [facility] [address] [place] [address] Dr. Suzie Brooks Basophils/100 WBC (Bld) 0.6 % Normal 0.2-2.0 [facility] Comment on above: Performed By: #### C VDTBH #### [facility] [address] [place] [address] Dr. Suzie Brooks EO # 0.3 103/ul Normal 0.0-0.7 [facility] Comment on above: Performed By: #### C VDTBH #### [facility] [address] [place] [address] Dr. Suzie Brooks Eosinophils/100 WBC (Bld) 2.9 % Normal 0.9-7.0 [facility] Comment on above: Performed By: #### C VDTBH #### [facility] [address] [place] [address] Dr. Suzie Brooks Erythrocyte distribution width (RBC) [Ratio] 14.1 % Normal 11.0-15.0 [facility] Comment on above: Performed By: #### C VDTBH #### [facility] [address] [place] [address] Dr. Suzie Brooks Hematocrit (Bld) [Volume fraction] 46.7 % Normal 42.0-54.0 [facility] Comment on above: Performed By: #### C VDTBH #### [facility] [address] [place] [address] Dr. Suzie Brooks Hemoglobin (Bld) [Mass/Vol] 15.4 g/dL Normal 14.0-18.0 [facility] Comment on above: Performed By: #### C VDTBH #### [facility] [address] [place] [address] Dr. Suzie Brooks IG # 0.03 10e3/ul Normal 0.00-0.03 [facility] Comment on above: Performed By: #### C VDTBH #### [facility] [address] [place] [address] Dr. Suzie Brooks IG % 0.3 % Normal 0.0-0.5 [facility] Comment on above: Performed By: #### C VDTBH #### [facility] [address] [place] [address] Dr. Suzie Brooks LYMPH # 2.6 103/ul Normal 1.2-3.8 [facility] Comment on above: Performed By: #### C VDTBH #### [facility] [address] [place] [address] Dr. Suzie Brooks Lymphocytes/100 WBC (Bld) 25.1 % Normal 20.5-60.0 [facility] Comment on above: Performed By: #### C VDTBH #### [facility] [address] [place] [address] Dr. Suzie Brooks MANUAL DIFF REQ NO Normal [facility] Comment on above: Performed By: #### C VDTBH #### [facility] [address] [place] [address] Dr. Suzie Brooks MCH (RBC) [Entitic mass] 28.6 pg Normal 25.9-34.0 [facility] Comment on above: Performed By: #### C VDTBH #### [facility] [address] [place] [address] Dr. Suzie Brooks MCHC (RBC) [Mass/Vol] 33.0 g/dL Normal 29.9-35.2 [facility] Comment on above: Performed By: #### C VDTBH #### [facility] [address] [place] [address] Dr. Suzie Brooks MCV (RBC) [Entitic vol] 86.8 fL Normal 80.0-94.0 [facility] Comment on above: Performed By: #### C VDTBH #### [facility] [address] [place] [address] Dr. Suzie Brooks MONO # 0.7 103/ul Normal 0.3-0.8 [facility] Comment on above: Performed By: #### C VDTBH #### [facility] [address] [place] [address] Dr. Suzie Brooks Monocytes/100 WBC (Bld) 6.8 % Normal 1.7-12.0 [facility] Comment on above: Performed By: #### C VDTBH #### [facility] [address] [place] [address] Dr. Suzie Brooks NEUT # 6.5 103/ul Normal 1.4-6.5 [facility] Comment on above: Performed By: #### C VDTBH #### [facility] [address] [place] [address] Dr. Suzie Brooks Neutrophils/100 WBC (Bld) 64.3 % Normal 43.0-75.0 [facility] Comment on above: Performed By: #### C VDTBH #### [facility] [address] [address] [address] Suzie Brooks Platelet mean volume (Bld) [Entitic vol] 9.5 fL Normal 9.5-13.5 [facility] Comment on above: Performed By: #### C VDTBH #### [facility] [address] [place] [address] Dr. Suzie Brooks PLT 273 103/ul Normal 150-450 [facility] Comment on above: Performed By: #### C VDTBH #### [facility] [address] [place] [address] Dr. Suzie Brooks RBC 5.38 106/ul Normal 4.70-6.10 [facility] Comment on above: Performed By: #### C VDTBH #### [facility] [address] [place] [address] Dr. Suzie Brooks WBC 10.2 103/ul Normal 4.0-11.0 [facility] Comment on above: Performed By: #### C VDTBH #### [facility] [address] [place] [address] Dr. Suzie Brooks FREE THYROXINE INDEX T7on FTI 2.23 Normal 1.30-4.50 [facility] Comment on above: Performed By: #### U DINA, LIPID, TSH, BNP, CMP, T7 #### [facility] [address] [place] [address] Dr. Suzie Brooks T3U 36.0 % Normal 33.0-40.0 [facility] Comment on above: Performed By: #### U DINA, LIPID, TSH, BNP, CMP, T7 #### [facility] [address] [place] [address] Dr. Suzie Brooks T4 [Mass/Vol] 6.20 ug/dL Normal 4.50-12.10 [facility] Comment on above: Performed By: #### U DINA, LIPID, TSH, BNP, CMP, T7 #### [facility] [address] [place] [address] Dr. Suzie Brooks GLYCOHEMOGLOBIN A1Con 2021 ADA RECOMMENDATION SEE BELOW Normal [facility] Comment on above: Result Comment: ADA RECOMMENDED LIMIT 4.0 - 6.0 ADA THERAPEUTIC TARGET < 7.0 ACTION SUGGESTED > 7.0 Performed By: #### U DINA, LIPID, TSH, BNP, CMP, T7 #### [facility] [address] [address] [address] Suzie Brooks Glucose [Mass/Vol] 111 mg/dL Normal [facility] Comment on above: Performed By: #### U DINA, LIPID, TSH, BNP, CMP, T7 #### [facility] [address] [address] [address] Suzie Brooks HbA1c (Bld) [Mass fraction] 5.5 % Normal 4.5-6.2 [facility] Comment on above: Performed By: #### U DINA, LIPID, TSH, BNP, CMP, T7 #### [facility] [address] [address] [address] Suzie Brooks LIPID PROFILEon 05-15-2022 CHOL-HDL RATIO NORM SEE BELOW Normal [facility] Comment on above: Result Comment: 3.3 - 4.4 LOW RISK 4.4 - 7.1 AVERAGE RISK 7.1 - 11.0 MODERATE RISK >11.0 HIGH RISK Performed By: #### U DINA, LIPID, TSH, BNP, CMP, T7 #### [facility] [address] [address] [address] Suzie Brooks Cholesterol [Mass/Vol] 136 mg/dL Normal <=200 [facility] Comment on above: Performed By: #### U DINA, LIPID, TSH, BNP, CMP, T7 #### [facility] [address] [address] [address] Suzie Brooks Cholesterol in HDL [Mass/Vol] 34 mg/dL Critically low 40-60 [facility] Comment on above: Performed By: #### U DINA, LIPID, TSH, BNP, CMP, T7 #### [facility] [address] [address] [address] Suzie Brooks Cholesterol in LDL [Mass/Vol] 49.8 mg/dL Normal [facility] Comment on above: Performed By: #### U DINA, LIPID, TSH, BNP, CMP, T7 #### [facility] [address] [address] [address] Suzie Brooks Cholesterol.total/Ch olesterol in HDL [Mass ratio] 4.0 {ratio} Normal [facility] Comment on above: Performed By: #### U DINA, LIPID, TSH, BNP, CMP, T7 #### [facility] [address] [address] [address] Suzie Brooks HDL NORMAL > or = 60 mg/dl - LO W CARDIOVASCULAR RISK <40 mg/dl - HIGH CARDIOVASCULAR RISK Normal [facility] Comment on above: Performed By: #### U DINA, LIPID, TSH, BNP, CMP, T7 #### [facility] [address] [address] [address] Suzie Brooks LDL CALC NORMAL SEE BELOW Normal [facility] Comment on above: Result Comment: <100 mg/dl OPTIMAL 100 - 129 mg/dl NEAR OR ABOVE OPTIMAL 130 - 159 mg/dl BORDERLINE HIGH 160 - 189 mg/dl HIGH >190 mg/dl VERY HIGH Performed By: #### U DINA, LIPID, TSH, BNP, CMP, T7 #### [facility] [address] [address] [address] Suzie Brooks Triglyceride [Mass/Vol] 261 mg/dL Critically high <=150 [facility] Comment on above: Performed By: #### U DINA, LIPID, TSH, BNP, CMP, T7 #### [facility] [address] [address] [address] Suzie Brooks VLDL CALC 52.2 mg/dL Normal [facility] Comment on above: Performed By: #### U DINA, LIPID, TSH, BNP, CMP, T7 #### [facility] [id number] Suzie Brooks PROF 14(COMP METB)on 022 Albumin [Mass/Vol] 3.6 g/dL Normal 3.4-5.0 [facility] Comment on above: Performed By: #### U DINA, LIPID, TSH, BNP, CMP, T7 #### [facility] [address] [address] [address] Suzie Brooks Albumin/Globulin [Mass ratio] 0.9 {ratio} Normal [facility] Comment on above: Performed By: #### U DINA, LIPID, TSH, BNP, CMP, T7 #### [facility] [address] [place] [address] Dr. Suzie Brooks ALP [Catalytic activity/Vol] 60 U/L Normal 46-116 [facility] Comment on above: Performed By: #### U DINA, LIPID, TSH, BNP, CMP, T7 #### [facility] [address] [place] [address] Dr. Suzie Brooks ALT [Catalytic activity/Vol] 36 U/L Normal 16-63 [facility] Comment on above: Performed By: #### U DINA, LIPID, TSH, BNP, CMP, T7 #### [facility] [address] [place] [address] Dr. Suzie Brooks Anion gap [Moles/Vol] 11.7 mmol/L Normal [facility] Comment on above: Performed By: #### U DINA, LIPID, TSH, BNP, CMP, T7 #### [facility] [address] [place] [address] Dr. Suzie Brooks AST [Catalytic activity/Vol] 28 U/L Normal 15-37 [facility] Comment on above: Performed By: #### U DINA, LIPID, TSH, BNP, CMP, T7 #### [facility] [address] [place] [address] Dr. Suzie Brooks Bilirubin [Mass/Vol] 0.6 mg/dL Normal 0.2-1.0 [facility] Comment on above: Performed By: #### U DINA, LIPID, TSH, BNP, CMP, T7 #### [facility] [address] [place] [address] Dr. Suzie Brooks Calcium [Mass/Vol] 8.8 mg/dL Normal 8.5-10.1 [facility] Comment on above: Performed By: #### U DINA, LIPID, TSH, BNP, CMP, T7 #### [facility] [address] [address] [address] Suzie Brooks Chloride [Moles/Vol] 102 mmol/L Normal 98-107 [facility] Comment on above: Performed By: #### U DINA, LIPID, TSH, BNP, CMP, T7 #### [facility] [address] [address] [address] Suzie Brooks CO2 [Moles/Vol] 27.9 mmol/L Normal 21.0-32.0 [facility] Comment on above: Performed By: #### U DINA, LIPID, TSH, BNP, CMP, T7 #### [facility] [address] [address] [address] Suzie Brooks Creatinine [Mass/Vol] 0.98 mg/dL Normal 0.70-1.30 [facility] Comment on above: Performed By: #### U DINA, LIPID, TSH, BNP, CMP, T7 #### [facility] [address] [place] [address] Dr. Suzie Brooks EGFR-AF ANGOLAN >60 Normal >=60 [facility] Comment on above: Performed By: #### U DINA, LIPID, TSH, BNP, CMP, T7 #### [facility] [address] [place] [address] Dr. Suzie Brooks EGFR-NON AF ANGOLAN >60 Normal >=60 [facility] Comment on above: Performed By: #### U DINA, LIPID, TSH, BNP, CMP, T7 #### [facility] [address] [place] [address] Dr. Suzie Brooks Globulin (S) [Mass/Vol] 3.8 g/dL Normal [facility] Comment on above: Performed By: #### U DINA, LIPID, TSH, BNP, CMP, T7 #### [facility] [address] [address] [address] Suzie Brooks Glucose [Mass/Vol] 107 mg/dL Critically high 74-106 [facility] Comment on above: Performed By: #### U DINA, LIPID, TSH, BNP, CMP, T7 #### [facility] [address] [address] [address] Suzie Brooks Potassium [Moles/Vol] 3.6 mmol/L Normal 3.5-5.1 [facility] Comment on above: Performed By: #### U DINA, LIPID, TSH, BNP, CMP, T7 #### [facility] [address] [address] Dr. Suzie Brooks Protein [Mass/Vol] 7.4 g/dL Normal 6.4-8.2 [facility] Comment on above: Performed By: #### U DINA, LIPID, TSH, BNP, CMP, T7 #### [facility] [address] [place] [address] Dr. Suzie Brooks Sodium [Moles/Vol] 138 mmol/L Normal 136-145 [facility] Comment on above: Performed By: #### U DINA, LIPID, TSH, BNP, CMP, T7 #### [facility] [address] [place] [address] Dr. Suzie Brooks Urea nitrogen [Mass/Vol] 12.0 mg/dL Normal 7.0-18.0 [facility] Comment on above: Performed By: #### U DINA, LIPID, TSH, BNP, CMP, T7 #### [facility] [address] [place] [address] Dr. Suzie Brooks Urea nitrogen/Creatinine [Mass ratio] 12.2 mg/mg Normal [facility] Comment on above: Performed By: #### U DINA, LIPID, TSH, BNP, CMP, T7 #### [facility] [address] [place] [address] Dr. Suzie Brooks TSHon 05-15-2022 TSH 2.356 uIU/mL Normal 0.358-3.740 [facility] Comment on above: Performed By: #### U DINA, LIPID, TSH, BNP, CMP, T7 #### [facility] [address] [place] [address] Dr. Suzie Brooks URIC ACID SERUMon 05-15-2022 Urate [Mass/Vol] 5.2 mg/dL Normal 3.5-7.2 The [facility] Comment on above: Performed By: #### U DINA, LIPID, TSH, BNP, CMP, T7 #### [facility] [address] [address] [address] Suzie Brooks CALCULI, URINARYon 2 2,8 Dihydroxyadenine Normal [facility] Comment on above: Performed By: #### U DINA, LIPID, TSH, BNP, CMP, T7 #### [facility] [address] [address] [address] Suzie Brooks Ammonium Acid Urate Normal [facility] Comment on above: Performed By: #### U DINA, LIPID, TSH, BNP, CMP, T7 #### [facility] [address] [address] [address] Suzie Brooks Bilirubin Ql (U) Normal [facility] Comment on above: Performed By: #### U DINA, LIPID, TSH, BNP, CMP, T7 #### [facility] [address] [address] [address] Suzie Brooks Ca Oxalate Dihydrate Normal [facility] Comment on above: Performed By: #### U DINA, LIPID, TSH, BNP, CMP, T7 #### [facility] [address] [address] [address] Suzie Brooks CaHPO4 (Brushite) [facility] Comment on above: Performed By: #### U DINA, LIPID, TSH, BNP, CMP, T7 #### [facility] [address] [address] [address] Suzie Brooks Calcium Bilirubinate Normal [facility] Comment on above: Performed By: #### U DINA, LIPID, TSH, BNP, CMP, T7 #### [facility] [address] [address] [address] Suzie Brooks Calcium Carbonate Normal [facility] Comment on above: Performed By: #### U DINA, LIPID, TSH, BNP, CMP, T7 #### [facility] [address] [address] [address] Suzie Brooks Calcium Oxalate Monohydrate 70 % Normal [facility] Comment on above: Performed By: #### U DINA, LIPID, TSH, BNP, CMP, T7 #### [facility] [address] [address] [address] Suzie Brooks Calcium Palmitate Normal [facility] Comment on above: Performed By: #### U DINA, LIPID, TSH, BNP, CMP, T7 #### [facility] [address] [address] [address] Suzie Brooks Calcium Phosphate Normal [facility] Comment on above: Performed By: #### U DINA, LIPID, TSH, BNP, CMP, T7 #### [facility] [address] [address] [address] Suzie Brooks Calcium Stearate Normal [facility] Comment on above: Performed By: #### U DINA, LIPID, TSH, BNP, CMP, T7 #### [facility] [address] [address] [address] Suzie Brooks Carbonate Apatite Normal [facility] Comment on above: Performed By: #### U DINA, LIPID, TSH, BNP, CMP, T7 #### [facility] [address] [address] [address] Suzie Brooks Cellular Material Normal [facility] Comment on above: Performed By: #### U DINA, LIPID, TSH, BNP, CMP, T7 #### [facility] [address] [address] [address] Suzie Brooks Cholesterol [facility] Comment on above: Performed By: #### U DINA, LIPID, TSH, BNP, CMP, T7 #### [facility] [address] [address] [address] Suzie Brooks Color (U) Brown Normal [facility] Comment on above: Performed By: #### U DINA, LIPID, TSH, BNP, CMP, T7 #### [facility] [address] [address] [address] Suzie Brooks Comment [facility] Comment on above: Performed By: #### U DINA, LIPID, TSH, BNP, CMP, T7 #### [facility] [address] [address] [address] Suzie Brooks Comment Comment Normal [facility] Comment on above: Result Comment: Calc ulus received in liquid. Wet calculi must be dried before analysis, which delays reporting of results. Leaving calculi in liquid (such as water, saline, blood, urine) may lead to changes in composition. Performed By: #### U DINA, LIPID, TSH, BNP, CMP, T7 #### [facility] [address] [address] [address] Suzie Brooks Comment: Comment Normal [facility] Comment on above: Result Comment: Fatnasma baez questions regarding Calculi Analysis contact [facility] at: [phone]. Performed By: #### U DINA, LIPID, TSH, BNP, CMP, T7 #### [facility] [address] [address] [address] Suzie Brooks Composition Comment [facility] Comment on above: Result Comment: Perc entage (Represents the % composition) Performed By: #### U DINA, LIPID, TSH, BNP, CMP, T7 #### [facility] [address] [address] [address] Suzie Brooks Cystine Normal [facility] Comment on above: Performed By: #### U DINA, LIPID, TSH, BNP, CMP, T7 #### [facility] [address] [address] [address] Suzie Brooks Disclaimer: Comment Normal [facility] Comment on above: Result Comment: This test was developed and its performance characteristics determined by [facility]. It has not been cleared or approved by the Food and Drug Administration. Performed By: #### U DINA, LIPID, TSH, BNP, CMP, T7 #### [facility] [address] [address] [address] Suzie Brooks Dried Blood Normal [facility] Comment on above: Performed By: #### U DINA, LIPID, TSH, BNP, CMP, T7 #### [facility] [address] [address] [address] Suzie Brooks Drug or Metabolite Normal [facility] Comment on above: Performed By: #### U DINA, LIPID, TSH, BNP, CMP, T7 #### [facility] [address] [address] [address] Suzie Brooks Hydroxyapatite Normal [facility] Comment on above: Performed By: #### U DINA, LIPID, TSH, BNP, CMP, T7 #### [facility] [address] [address] [address] Suzie Brooks Mg NH4 PO4 (Struvite) [facility] Comment on above: Performed By: #### U DINA, LIPID, TSH, BNP, CMP, T7 #### [facility] [address] [address] [address] Suzie Brooks MgHPO4 (Newberyite) Normal [facility] Comment on above: Performed By: #### U DINA, LIPID, TSH, BNP, CMP, T7 #### [facility] [address] [address] [address] Suzie Brooks Other component(s) Normal [facility] Comment on above: Performed By: #### U DINA, LIPID, TSH, BNP, CMP, T7 #### [facility] [address] [address] [address] Suzie Brooks PDF . Normal [facility] Comment on above: Performed By: #### U DINA, LIPID, TSH, BNP, CMP, T7 #### [facility] [address] [address] [address] Suzie Brooks Photo Comment [facility] Comment on above: Result Comment: Phot ograph will follow under a separate cover Performed By: #### U DINA, LIPID, TSH, BNP, CMP, T7 #### [facility] [address] [address] [address] Suzie Brooks Please note: Comment [facility] Comment on above: Result Comment: Calc shamika report will follow via computer, mail or manufacturing helper delivery. Performed By: #### U DINA, LIPID, TSH, BNP, CMP, T7 #### [facility] [address] [address] [address] Suzie Brooks Size 6x4 [facility] Comment on above: Result Comment: Mult iple pieces received. Dimensions of the largest piece reported. Performed By: #### U DINA, LIPID, TSH, BNP, CMP, T7 #### [facility] [address] [address] [address] Suzie Brooks Sodium Acid Urate Normal [facility] Comment on above: Performed By: #### U DINA, LIPID, TSH, BNP, CMP, T7 #### [facility] [address] [address] [address] Suzie Brooks Source Comment [facility] Comment on above: Result Comment: Not provided Performed By: #### U DINA, LIPID, TSH, BNP, CMP, T7 #### [facility] [address] [address] [address] Suzie Brooks Triamterene [facility] Comment on above: Performed By: #### U DINA, LIPID, TSH, BNP, CMP, T7 #### [facility] [address] [address] [address] Suzie Brooks Uric Acid 30 % [facility] Comment on above: Performed By: #### U DINA, LIPID, TSH, BNP, CMP, T7 #### [facility] [address] [address] [address] Suzie Brooks Uric Acid Dihydrate Normal [facility] Comment on above: Performed By: #### U DIAN, LIPID, TSH, BNP, CMP, T7 #### [facility] [address] [address] [address] Suzie Brooks Weight 99 mg Normal [facility] Comment on above: Performed By: #### U DINA, LIPID, TSH, BNP, CMP, T7 #### [facility] [address] [address] [address] Suzie Brooks Xanthine [facility] Comment on above: Performed By: #### U DINA, LIPID, TSH, BNP, CMP, T7 #### [facility] [address] [address] [address] Suzie Brooks CBC AUTO DIFFon 02-18-2022 BASO # 0.0 103/ul Normal 0.0-0.1 [facility] Comment on above: Performed By: #### U DINA, LIPID, TSH, BNP, CMP, T7 #### [facility] [address] [address] [address] Suzie Brooks Basophils/100 WBC (Bld) 0.3 % Normal 0.2-2.0 [facility] Comment on above: Performed By: #### U DINA, LIPID, TSH, BNP, CMP, T7 #### [facility] [address] [place] [address] Dr. Suzie Brooks EO # 0.3 103/ul Normal 0.0-0.7 [facility] Comment on above: Performed By: #### U DINA, LIPID, TSH, BNP, CMP, T7 #### [facility] [address] [place] [address] Dr. Suzie Brooks Eosinophils/100 WBC (Bld) 2.3 % Normal 0.9-7.0 [facility] Comment on above: Performed By: #### U DINA, LIPID, TSH, BNP, CMP, T7 #### [facility] [address] [place] [address] Dr. Suzie Brooks Erythrocyte distribution width (RBC) [Ratio] 14.2 % Normal 11.0-15.0 [facility] Comment on above: Performed By: #### U DINA, LIPID, TSH, BNP, CMP, T7 #### [facility] [address] [place] [address] Dr. Suzie Brooks Hematocrit (Bld) [Volume fraction] 41.3 % Critically low 42.0-54.0 [facility] Comment on above: Performed By: #### U DINA, LIPID, TSH, BNP, CMP, T7 #### [facility] [address] [place] [address] Dr. Suzie Brooks Hemoglobin (Bld) [Mass/Vol] 13.4 g/dL Critically low 14.0-18.0 [facility] Comment on above: Performed By: #### U DINA, LIPID, TSH, BNP, CMP, T7 #### [facility] [address] [place] [address] Dr. Suzie Brooks IG # 0.03 10e3/ul Normal 0.00-0.03 [facility] Comment on above: Performed By: #### U DINA, LIPID, TSH, BNP, CMP, T7 #### [facility] [address] [place] [address] Dr. Suzie Brooks IG % 0.3 % Normal 0.0-0.5 [facility] Comment on above: Performed By: #### U DINA, LIPID, TSH, BNP, CMP, T7 #### [facility] [address] [address] [address] Suzie Brooks LYMPH # 2.0 103/ul Normal 1.2-3.8 [facility] Comment on above: Performed By: #### U DINA, LIPID, TSH, BNP, CMP, T7 #### [facility] [address] [place] [address] Dr. Suzie Brooks Lymphocytes/100 WBC (Bld) 18.0 % Critically low 20.5-60.0 [facility] Comment on above: Performed By: #### U DINA, LIPID, TSH, BNP, CMP, T7 #### [facility] [address] [place] [address] Dr. Suzie Brooks MANUAL DIFF REQ NO Normal [facility] Comment on above: Performed By: #### U DINA, LIPID, TSH, BNP, CMP, T7 #### [facility] [address] [place] [address] Dr. Suzie Brooks MCH (RBC) [Entitic mass] 28.8 pg Normal 25.9-34.0 [facility] Comment on above: Performed By: #### U DINA, LIPID, TSH, BNP, CMP, T7 #### [facility] [address] [place] [address] Dr. Suzie Brooks MCHC (RBC) [Mass/Vol] 32.4 g/dL Normal 29.9-35.2 [facility] Comment on above: Performed By: #### U DINA, LIPID, TSH, BNP, CMP, T7 #### [facility] [address] [place] [address] Dr. Suzie Brooks MCV (RBC) [Entitic vol] 88.6 fL Normal 80.0-94.0 [facility] Comment on above: Performed By: #### U DINA, LIPID, TSH, BNP, CMP, T7 #### [facility] [address] [place] [address] Dr. Suzie Brooks MONO # 1.0 103/ul Critically high 0.3-0.8 [facility] Comment on above: Performed By: #### U DINA, LIPID, TSH, BNP, CMP, T7 #### [facility] [address] [address] [address] Suzie Brooks Monocytes/100 WBC (Bld) 9.2 % Normal 1.7-12.0 [facility] Comment on above: Performed By: #### U DINA, LIPID, TSH, BNP, CMP, T7 #### [facility] [address] [address] [address] Suzie Brooks NEUT # 7.9 103/ul Critically high 1.4-6.5 [facility] Comment on above: Performed By: #### U DINA, LIPID, TSH, BNP, CMP, T7 #### [facility] [address] [address] [address] Suzie Brooks Neutrophils/100 WBC (Bld) 69.9 % Normal 43.0-75.0 [facility] Comment on above: Performed By: #### U DINA, LIPID, TSH, BNP, CMP, T7 #### [facility] [address] [address] [address] Suzie Brooks Platelet mean volume (Bld) [Entitic vol] 9.6 fL Normal 9.5-13.5 [facility] Comment on above: Performed By: #### U DINA, LIPID, TSH, BNP, CMP, T7 #### [facility] [address] [address] [address] Suzie Brooks PLT 218 103/ul Normal 150-450 [facility] Comment on above: Performed By: #### U DINA, LIPID, TSH, BNP, CMP, T7 #### [facility] [address] [address] [address] Suzie Brooks RBC 4.66 106/ul Critically low 4.70-6.10 [facility] Comment on above: Performed By: #### U DINA, LIPID, TSH, BNP, CMP, T7 #### [facility] [address] [address] [address] Suzie Brooks WBC 11.3 103/ul Critically high 4.0-11.0 [facility] Comment on above: Performed By: #### U DINA, LIPID, TSH, BNP, CMP, T7 #### [facility] [address] [address] [address] Suzie Brooks CULTURE URINEon 02-18-2022 CULTURE URINE Culture Observations : NO GROWTH. Normal [facility] Comment on above: Performed By: #### M AG24 #### [facility] [address] [address] [address] Suzie Brooks Covid-19 PCR (CVDTB)on 02-08 SARS-CoV-2 (COVID-19) RNA SUKHJINDER+probe Ql (Unsp spec) Not detected Normal NOT DETECTED [facility] Comment on above: Result Comment: When [...] for this test is supported by the [employer] of Health and Human Service's declaration that [...] used). Performed By: #### C VDTBH #### [facility] [address] [address] [address] Suzie Brooks PROF 14(COMP METB)on 022 Albumin [Mass/Vol] 3.0 g/dL Critically low 3.4-5.0 Th e [facility] Comment on above: Performed By: #### O [id number] #### [facility] [address] [place] [address] [address] [address] Suzie Brooks Albumin/Globulin [Mass ratio] 0.9 {ratio} Normal [facility] Comment on above: Performed By: #### O X24HR #### [facility] [address] [address] [address] Suzie Brooks ALP [Catalytic activity/Vol] 49 U/L Normal 46-116 [facility] Comment on above: Performed By: #### O X24HR #### [facility] [address] [address] [address] Suzie Brooks ALT [Catalytic activity/Vol] 35 U/L Normal 16-63 [facility] Comment on above: Performed By: #### O X24HR #### [facility] [address] [address] [address] Suzie Brooks Anion gap [Moles/Vol] 11.8 mmol/L Normal [facility] Comment on above: Performed By: #### O X24HR #### [facility] [address] [place] [address] Dr. Suzie Brooks AST [Catalytic activity/Vol] 27 U/L Normal 15-37 [facility] Comment on above: Performed By: #### O X24HR #### [facility] [address] [address] [address] Suzie Brooks Bilirubin [Mass/Vol] 0.4 mg/dL Normal 0.2-1.0 [facility] Comment on above: Performed By: #### O X24HR #### [facility] [address] [place] [address] Dr. Suzie Brooks Calcium [Mass/Vol] 7.6 mg/dL Critically low 8.5-10.1 [facility] Comment on above: Performed By: #### O X24HR #### [facility] [address] [address] [address] Suzie Brooks Chloride [Moles/Vol] 106 mmol/L Normal 98-107 [facility] Comment on above: Performed By: #### O X24HR #### [facility] [address] [address] [address] Suzie Brooks CO2 [Moles/Vol] 26.2 mmol/L Normal 21.0-32.0 [facility] Comment on above: Performed By: #### O X24HR #### [facility] [address] [address] [address] Suzie Brooks Creatinine [Mass/Vol] 1.08 mg/dL Normal 0.70-1.30 [facility] Comment on above: Performed By: #### O X24HR #### [facility] [address] [address] [address] Suzie Brooks EGFR-AF ANGOLAN >60 Normal >=60 [facility] Comment on above: Performed By: #### O X24HR #### [facility] [address] [address] [address] Suzie Brooks EGFR-NON AF ANGOLAN >60 Normal >=60 [facility] Comment on above: Performed By: #### O X24HR #### [facility] [address] [place] [address] Dr. Suzie Brooks Globulin (S) [Mass/Vol] 3.2 g/dL Normal [facility] Comment on above: Performed By: #### O X24HR #### [facility] [address] [place] [address] Dr. Suzie Brooks Glucose [Mass/Vol] 107 mg/dL Critically high 74-106 [facility] Comment on above: Performed By: #### O X24HR #### [facility] [address] [place] [address] Dr. Suzie Brooks Potassium [Moles/Vol] 4.0 mmol/L Normal 3.5-5.1 [facility] Comment on above: Performed By: #### O X24HR #### [facility] [address] [place] [address] Dr. Suzie Brooks Protein [Mass/Vol] 6.2 g/dL Critically low 6.4-8.2 Th [facility] Comment on above: Performed By: #### O X24HR #### [facility] [address] [place] [address] Dr. Suzie Brooks Sodium [Moles/Vol] 140 mmol/L Normal 136-145 [facility] Comment on above: Performed By: #### O X24HR #### [facility] [address] [place] [address] Dr. Suzie Brooks Urea nitrogen [Mass/Vol] 14.0 mg/dL Normal 7.0-18.0 [facility] Comment on above: Performed By: #### O X24HR #### [facility] [address] [place] [address] Dr. Suzie Brooks Urea nitrogen/Creatinine [Mass ratio] 13.0 mg/mg Normal [facility] Comment on above: Performed By: #### O X24HR #### [facility] [address] [place] [address] Dr. Suzie Brooks CBC AUTO DIFFon 02-17-2022 BASO # 0.1 103/ul Normal 0.0-0.1 [facility] Comment on above: Performed By: #### M AG24 #### [facility] [address] [place] [address] Dr. Suzie Brooks Basophils/100 WBC (Bld) 0.4 % Normal 0.2-2.0 [facility] Comment on above: Performed By: #### M AG24 #### [facility] [address] [place] [address] Dr. Suzie Brooks EO # 0.3 103/ul Normal 0.0-0.7 [facility] Comment on above: Performed By: #### M AG24 #### [facility] [address] [place] [address] Dr. Suzie Brooks Eosinophils/100 WBC (Bld) 2.3 % Normal 0.9-7.0 [facility] Comment on above: Performed By: #### M AG24 #### [facility] [address] [place] [address] Dr. Suzie Brooks Erythrocyte distribution width (RBC) [Ratio] 13.8 % Normal 11.0-15.0 [facility] Comment on above: Performed By: #### M AG24 #### [facility] [address] [place] [address] Dr. Suzie Brooks Hematocrit (Bld) [Volume fraction] 45.2 % Normal 42.0-54.0 [facility] Comment on above: Performed By: #### M AG24 #### [facility] [address] [place] [address] Dr. Suzie Brooks Hemoglobin (Bld) [Mass/Vol] 14.9 g/dL Normal 14.0-18.0 [facility] Comment on above: Performed By: #### M AG24 #### [facility] [address] [place] [address] Dr. Suzie Brooks IG # 0.05 10e3/ul Critically high 0.00-0.03 [facility] Comment on above: Performed By: #### M AG24 #### [facility] [address] [place] [address] Dr. Suzie Brooks IG % 0.4 % Normal 0.0-0.5 [facility] Comment on above: Performed By: #### M AG24 #### [facility] [address] [place] [address] Dr. Suzie Brooks LYMPH # 2.5 103/ul Normal 1.2-3.8 [facility] Comment on above: Performed By: #### M AG24 #### [facility] [address] [place] [address] Dr. Suzie Brooks Lymphocytes/100 WBC (Bld) 17.3 % Critically low 20.5-60.0 [facility] Comment on above: Performed By: #### M AG24 #### [facility] [address] [place] [address] Dr. Suzie Brooks MANUAL DIFF REQ NO Normal [facility] Comment on above: Performed By: #### M AG24 #### [facility] [address] [place] [address] Dr. Suzie Brooks MCH (RBC) [Entitic mass] 28.7 pg Normal 25.9-34.0 [facility] Comment on above: Performed By: #### M AG24 #### [facility] [address] [place] [address] Dr. Suzie Brooks MCHC (RBC) [Mass/Vol] 33.0 g/dL Normal 29.9-35.2 [facility] Comment on above: Performed By: #### M AG24 #### [facility] [address] [place] [address] Dr. Suzie Brooks MCV (RBC) [Entitic vol] 87.1 fL Normal 80.0-94.0 [facility] Comment on above: Performed By: #### M AG24 #### [facility] [address] [place] [address] Dr. Suzie Brooks MONO # 1.0 103/ul Critically high 0.3-0.8 [facility] Comment on above: Performed By: #### M AG24 #### [facility] [address] [place] [address] Dr. Suzie Brooks Monocytes/100 WBC (Bld) 6.8 % Normal 1.7-12.0 [facility] Comment on above: Performed By: #### M AG24 #### [facility] [address] [place] [address] Dr. Suzie Brooks NEUT # 10.3 103/ul Critically high 1.4-6.5 [facility] Comment on above: Performed By: #### M AG24 #### [facility] [address] [place] [address] Dr. Suzie Brooks Neutrophils/100 WBC (Bld) 72.8 % Normal 43.0-75.0 [facility] Comment on above: Performed By: #### M AG24 #### [facility] [address] [place] [address] Dr. Suzie Brooks Platelet mean volume (Bld) [Entitic vol] 9.7 fL Normal 9.5-13.5 [facility] Comment on above: Performed By: #### M AG24 #### [facility] [address] [place] [address] Dr. Suzie Brooks PLT 253 103/ul Normal 150-450 [facility] Comment on above: Performed By: #### M AG24 #### [facility] [address] [place] [address] Dr. uSzie Brooks RBC 5.19 106/ul Normal 4.70-6.10 [facility] Comment on above: Performed By: #### M AG24 #### [facility] [address] [place] [address] Dr. Suzie Brooks WBC 14.2 103/ul Critically high 4.0-11.0 [facility] Comment on above: Performed By: #### M AG24 #### [facility] [address] [place] [address] Dr. Suzie Brooks CULTURE BLOODon 02-17-2022 Microscopic examination of blood, culture Culture Observations: NO GROWTH AT 5 DAYS. Normal [facility] Comment on above: Performed By: #### M AG24 #### [facility] [address] [place] [address] Dr. Suzie Brooks Microscopic examination of blood, culture Culture Observations: NO GROWTH AT 5 DAYS. Normal [facility] Comment on above: Performed By: #### M AG24 #### [facility] [address] [place] [address] Dr. Suzie Brooks ER URINE PROFILEon Bilirubin Ql (U) Negative Normal NEGATIVE [facility] Comment on above: Performed By: #### E RUR #### [facility] [address] [place] [address] Dr. Suzie Brooks Clarity (U) CLEAR Normal CLEAR [facility] Comment on above: Performed By: #### E RUR #### [facility] [address] [place] [address] Dr. Suzie Brooks Color (U) DK. YELLOW Normal YELLOW [facility] Comment on above: Performed By: #### E RUR #### [facility] [address] [place] [address] Dr. Suzie Brooks ERUAHD A micrscopic examina tion will be performed if indicated. Normal [facility] Comment on above: Performed By: #### E RUR #### [facility] [address] [place] [address] Dr. Suzie Brooks Glucose Ql (U) Negative Normal NEGATIVE [facility] Comment on above: Performed By: #### E RUR #### [facility] [address] [place] [address] Dr. Suzie Brooks Hemoglobin Ql (U) Negative Normal NEGATIVE [facility] Comment on above: Performed By: #### E RUR #### [facility] [address] [place] [address] Dr. Suzie Brooks Ketones Ql (U) Negative Normal NEGATIVE [facility] Comment on above: Performed By: #### E RUR #### [facility] [address] [place] [address] Dr. Suzie Brooks LEUKOCYTES Negative Normal NEGATIVE [facility] Comment on above: Performed By: #### E RUR #### [facility] [address] [place] [address] Dr. Suzie Brooks Nitrite Ql (U) Negative Normal NEGATIVE [facility] Comment on above: Performed By: #### E RUR #### [facility] [address] [place] [address] Dr. Suzie Brooks pH (U) 5.0 [pH] Normal 5-9 [facility] Comment on above: Performed By: #### E RUR #### [facility] [address] [place] [address] Dr. Suzie Brooks SPEC GRAVITY >=1.030 Abnormal 1.005-<=1.02 5 [facility] Comment on above: Performed By: #### E RUR #### [facility] [address] [place] [address] Dr. Suzie Brooks UA PROTEIN Negative Normal NEGATIVE/ TRACE [facility] Comment on above: Performed By: #### E RUR #### [facility] [address] [place] [address] Dr. Suzie Brooks UR MICRO IND NOT INDICATED Normal [facility] Comment on above: Performed By: #### E RUR #### [facility] [address] [place] [address] Dr. Suzie Brooks Urobilinogen Qn (U) 0.2 {Behzad'U}/dL Normal 0.2 - 1. 0 [facility] Comment on above: Performed By: #### E RUR #### [facility] [address] [place] [address] Dr. Suzie Brooks LACTATE/LACTIC ACIDon 2021 Lactate [Moles/Vol] 1.4 mmol/L Normal 0.4-1.9 [facility] Comment on above: Performed By: #### U DINA, LIPID, TSH, BNP, CMP, T7 #### [facility] [address] [place] [address] Dr. Suzie Brooks PROF CHEM 8 (BAS METB)on Anion gap [Moles/Vol] 12.2 mmol/L Normal [facility] Comment on above: Performed By: #### U DINA, LIPID, TSH, BNP, CMP, T7 #### [facility] [address] [address] [address] Suzie Brooks Calcium [Mass/Vol] 8.1 mg/dL Critically low 8.5-10.1 [facility] Comment on above: Performed By: #### U DINA, LIPID, TSH, BNP, CMP, T7 #### [facility] [address] [place] [address] Dr. Suzie Brooks Chloride [Moles/Vol] 103 mmol/L Normal 98-107 [facility] Comment on above: Performed By: #### U DINA, LIPID, TSH, BNP, CMP, T7 #### [facility] [address] [place] [address] Dr. Suzie Brooks CO2 [Moles/Vol] 26.1 mmol/L Normal 21.0-32.0 [facility] Comment on above: Performed By: #### U DINA, LIPID, TSH, BNP, CMP, T7 #### [facility] [address] [address] [address] Suzie Brooks Creatinine [Mass/Vol] 1.06 mg/dL Normal 0.70-1.30 [facility] Comment on above: Performed By: #### U DINA, LIPID, TSH, BNP, CMP, T7 #### [facility] [address] [place] [address] Dr. Suzie Brooks EGFR-AF ANGOLAN >60 Normal >=60 [facility] Comment on above: Performed By: #### U DINA, LIPID, TSH, BNP, CMP, T7 #### [facility] [address] [address] [address] Suzie Brooks EGFR-NON AF ANGOLAN >60 Normal >=60 [facility] Comment on above: Performed By: #### U DINA, LIPID, TSH, BNP, CMP, T7 #### [facility] [address] [place] [address] Dr. Suzie Brooks Glucose [Mass/Vol] 138 mg/dL Critically high 74-106 [facility] Comment on above: Performed By: #### U DINA, LIPID, TSH, BNP, CMP, T7 #### [facility] [address] [address] [address] Suzie Brooks Potassium [Moles/Vol] 4.3 mmol/L Normal 3.5-5.1 [facility] Comment on above: Performed By: #### U DINA, LIPID, TSH, BNP, CMP, T7 #### [facility] [address] [place] [address] Dr. Suzie Brooks Sodium [Moles/Vol] 137 mmol/L Normal 136-145 [facility] Comment on above: Performed By: #### U DINA, LIPID, TSH, BNP, CMP, T7 #### [facility] [address] [address] [address] Suzie Brooks Urea nitrogen [Mass/Vol] 14.0 mg/dL Normal 7.0-18.0 [facility] Comment on above: Performed By: #### U DINA, LIPID, TSH, BNP, CMP, T7 #### [facility] [address] [address] [address] Suize Brooks Urea nitrogen/Creatinine [Mass ratio] 13.2 mg/mg Normal [facility] Comment on above: Performed By: #### U DINA, LIPID, TSH, BNP, CMP, T7 #### [facility] [address] [place] [address] Dr. Suzie Brooks TROPONIN, HIGH SENSITIVITYon 02-17-2022 HSTROP 8.4 pg/mL Normal 4.0-76.1 [facility] Comment on above: Result Comment: CUT- OFF POINTS HAVE BEEN ESTABLISHED BASED ON THE FOURTH UNIVERSAL DEFINITIONS OF MYOCARDIAL INFARCTION. THE UPPER REFERENCE LIMIT (URL) OF TROPONIN, DEFINED THE 99TH PERCENTILE OF cTnI DISTRIBUTION IN A REFERENCE POPULATION, HAS BEEN CONFIRMED THE DECISION THRESHOLD FOR [place] DIAGNOSIS. Performed By: #### U DINA, LIPID, TSH, BNP, CMP, T7 #### [facility] [address] [place] [address] Dr. Suzie Brooks CBC AUTO DIFFon 02-16-2022 BASO # 0.1 103/ul Normal 0.0-0.1 [facility] Comment on above: Performed By: #### U DINA, LIPID, TSH, BNP, CMP, T7 #### [facility] [address] [place] [address] Dr. Suzie Brooks Basophils/100 WBC (Bld) 0.4 % Normal 0.2-2.0 [facility] Comment on above: Performed By: #### U DINA, LIPID, TSH, BNP, CMP, T7 #### [facility] [address] [place] [address] Dr. Suzie Brooks EO # 0.3 103/ul Normal 0.0-0.7 [facility] Comment on above: Performed By: #### U DINA, LIPID, TSH, BNP, CMP, T7 #### [facility] [address] [place] [address] Dr. Suzie Brooks Eosinophils/100 WBC (Bld) 2.5 % Normal 0.9-7.0 [facility] Comment on above: Performed By: #### U DINA, LIPID, TSH, BNP, CMP, T7 #### [facility] [address] [place] [address] Dr. Suzie Brooks Erythrocyte distribution width (RBC) [Ratio] 13.9 % Normal 11.0-15.0 [facility] Comment on above: Performed By: #### U DINA, LIPID, TSH, BNP, CMP, T7 #### [facility] [address] [place] [address] Dr. Suzie Brooks Hematocrit (Bld) [Volume fraction] 46.6 % Normal 42.0-54.0 [facility] Comment on above: Performed By: #### U DINA, LIPID, TSH, BNP, CMP, T7 #### [facility] [address] [place] [address] Dr. Suzie Brooks Hemoglobin (Bld) [Mass/Vol] 15.7 g/dL Normal 14.0-18.0 [facility] Comment on above: Performed By: #### U DINA, LIPID, TSH, BNP, CMP, T7 #### [facility] [address] [address] [address] Suzie Brooks IG # 0.05 10e3/ul Critically high 0.00-0.03 [facility] Comment on above: Performed By: #### U DINA, LIPID, TSH, BNP, CMP, T7 #### [facility] [address] [address] [address] Suzie Brooks IG % 0.4 % Normal 0.0-0.5 [facility] Comment on above: Performed By: #### U DINA, LIPID, TSH, BNP, CMP, T7 #### [facility] [address] [place] [address] Dr. Suzie Brooks LYMPH # 3.7 103/ul Normal 1.2-3.8 [facility] Comment on above: Performed By: #### U DINA, LIPID, TSH, BNP, CMP, T7 #### [facility] [address] [address] [address] Suzie Brooks Lymphocytes/100 WBC (Bld) 26.6 % Normal 20.5-60.0 [facility] Comment on above: Performed By: #### U DINA, LIPID, TSH, BNP, CMP, T7 #### [facility] [address] [address] [address] Suzie Brooks MANUAL DIFF REQ NO Normal [facility] Comment on above: Performed By: #### U DINA, LIPID, TSH, BNP, CMP, T7 #### [facility] [address] [address] [address] Suzie Brooks MCH (RBC) [Entitic mass] 29.2 pg Normal 25.9-34.0 [facility] Comment on above: Performed By: #### U DINA, LIPID, TSH, BNP, CMP, T7 #### [facility] [address] [place] [address] Dr. Suzie Brooks MCHC (RBC) [Mass/Vol] 33.7 g/dL Normal 29.9-35.2 [facility] Comment on above: Performed By: #### U DINA, LIPID, TSH, BNP, CMP, T7 #### [facility] [address] [place] [address] Dr. Suzie Brooks MCV (RBC) [Entitic vol] 86.6 fL Normal 80.0-94.0 [facility] Comment on above: Performed By: #### U DINA, LIPID, TSH, BNP, CMP, T7 #### [facility] [address] [place] [address] Dr. Suzie Brooks MONO # 1.0 103/ul Critically high 0.3-0.8 [facility] Comment on above: Performed By: #### U DINA, LIPID, TSH, BNP, CMP, T7 #### [facility] [address] [place] [address] Dr. Suzie Brooks Monocytes/100 WBC (Bld) 7.2 % Normal 1.7-12.0 [facility] Comment on above: Performed By: #### U DINA, LIPID, TSH, BNP, CMP, T7 #### [facility] [address] [place] [address] Dr. Suzie Brooks NEUT # 8.7 103/ul Critically high 1.4-6.5 [facility] Comment on above: Performed By: #### U DINA, LIPID, TSH, BNP, CMP, T7 #### [facility] [address] [place] [address] Dr. Suzie Brooks Neutrophils/100 WBC (Bld) 62.9 % Normal 43.0-75.0 [facility] Comment on above: Performed By: #### U DINA, LIPID, TSH, BNP, CMP, T7 #### [facility] [address] [place] [address] Dr. Suzie Brooks Platelet mean volume (Bld) [Entitic vol] 9.4 fL Critically low 9.5-13.5 [facility] Comment on above: Performed By: #### U DINA, LIPID, TSH, BNP, CMP, T7 #### [facility] [address] [place], [place] [address] Dr. Suzie Brooks PLT 277 103/ul Normal 150-450 [facility] Comment on above: Performed By: #### U DINA, LIPID, TSH, BNP, CMP, T7 #### [facility] [address] [place], [place] [address] Dr. Suzie Brooks RBC 5.38 106/ul Normal 4.70-6.10 [facility] Comment on above: Performed By: #### U DINA, LIPID, TSH, BNP, CMP, T7 #### [facility] [address] [place], [place] [address] Dr. Suzie Brooks WBC 13.8 103/ul Critically high 4.0-11.0 [facility] Comment on above: Performed By: #### U DINA, LIPID, TSH, BNP, CMP, T7 #### [facility] [address] [place], [place] [address] ABD/PELVIS WO CONon [...] Reilly CAST Date: 2022-02-16 20:51 Normal [facility] ER URINE PROFILEon 2 Bilirubin Ql (U) Negative Normal NEGATIVE [facility] Comment on above: Performed By: #### U DINA, LIPID, TSH, BNP, CMP, T7 #### [facility] [address] [place] [address] Dr. Suzie Brooks Clarity (U) CLEAR Normal CLEAR [facility] Comment on above: Performed By: #### U DINA, LIPID, TSH, BNP, CMP, T7 #### [facility] [address] [address] [address] Suzie Brooks Color (U) YELLOW Normal YELLOW [facility] Comment on above: Performed By: #### U DINA, LIPID, TSH, BNP, CMP, T7 #### [facility] [address] [address] [address] Suzie Brooks ERUAHD A micrscopic examina tion will be performed if indicated. Normal [facility] Comment on above: Performed By: #### U DINA, LIPID, TSH, BNP, CMP, T7 #### [facility] [address] [place] [address] Dr. Suzie Brooks Glucose Ql (U) Negative Normal NEGATIVE [facility] Comment on above: Performed By: #### U DINA, LIPID, TSH, BNP, CMP, T7 #### [facility] [address] [address] [address] Suzie Brooks Hemoglobin Ql (U) MODERATE Abnormal NEGATIVE [facility] Comment on above: Performed By: #### U DINA, LIPID, TSH, BNP, CMP, T7 #### [facility] [address] [address] [address] Suzie Brooks Ketones Ql (U) Negative Normal NEGATIVE [facility] Comment on above: Performed By: #### U DINA, LIPID, TSH, BNP, CMP, T7 #### [facility] [address] [address] [address] Suzie Brooks LEUKOCYTES Negative Normal NEGATIVE [facility] Comment on above: Performed By: #### U DINA, LIPID, TSH, BNP, CMP, T7 #### [facility] [address] [address] [address] Suzie Brooks Nitrite Ql (U) Negative Normal NEGATIVE [facility] Comment on above: Performed By: #### U DINA, LIPID, TSH, BNP, CMP, T7 #### [facility] [address] [address] [address] Suzie Brooks pH (U) 5.5 [pH] Normal 5-9 [facility] Comment on above: Performed By: #### U DINA, LIPID, TSH, BNP, CMP, T7 #### [facility] [address] [address] [address] Suzie Brooks SPEC GRAVITY >=1.030 Abnormal 1.005-<=1.02 5 [facility] Comment on above: Performed By: #### U DINA, LIPID, TSH, BNP, CMP, T7 #### [facility] [address] [address] [address] Suzie Brooks UA PROTEIN Negative Normal NEGATIVE/ TRACE [facility] Comment on above: Performed By: #### U DINA, LIPID, TSH, BNP, CMP, T7 #### [facility] [address] [address] [address] Suzie Brooks UR MICRO IND INDICATED Normal [facility] Comment on above: Performed By: #### U DINA, LIPID, TSH, BNP, CMP, T7 #### [facility] [address] [address] [address] Suzie Brooks Urobilinogen Qn (U) 0.2 {Behzad'U}/dL Normal 0.2 - 1. 0 [facility] Comment on above: Performed By: #### U DINA, LIPID, TSH, BNP, CMP, T7 #### [facility] [address] [address] [address] Suzie Brooks PROF CHEM 8 (BAS METB)on Anion gap [Moles/Vol] 12.2 mmol/L Normal [facility] Comment on above: Performed By: #### U DINA, LIPID, TSH, BNP, CMP, T7 #### [facility] [address] [place] [address] Dr. Suzie Brooks Calcium [Mass/Vol] 8.5 mg/dL Normal 8.5-10.1 [facility] Comment on above: Performed By: #### U DINA, LIPID, TSH, BNP, CMP, T7 #### [facility] [address] [address] [address] Suzie Brooks Chloride [Moles/Vol] 104 mmol/L Normal 98-107 [facility] Comment on above: Performed By: #### U DINA, LIPID, TSH, BNP, CMP, T7 #### [facility] [address] [address] [address] Suzie Brooks CO2 [Moles/Vol] 24.1 mmol/L Normal 21.0-32.0 [facility] Comment on above: Performed By: #### U DINA, LIPID, TSH, BNP, CMP, T7 #### [facility] [address] [place] [address] Dr. Suzie Brooks Creatinine [Mass/Vol] 1.14 mg/dL Normal 0.70-1.30 [facility] Comment on above: Performed By: #### U DINA, LIPID, TSH, BNP, CMP, T7 #### [facility] [address] [address] [address] Suzie Brooks EGFR-AF ANGOLAN >60 Normal >=60 [facility] Comment on above: Performed By: #### U DINA, LIPID, TSH, BNP, CMP, T7 #### [facility] [address] [address] [address] Suzie Brooks EGFR-NON AF ANGOLAN >60 Normal >=60 [facility] Comment on above: Performed By: #### U DINA, LIPID, TSH, BNP, CMP, T7 #### [facility] [address] [address] [address] Suzie Brooks Glucose [Mass/Vol] 114 mg/dL Critically high 74-106 [facility] Comment on above: Performed By: #### U DINA, LIPID, TSH, BNP, CMP, T7 #### [facility] [address] [place] [address] Dr. Suzie Brooks Potassium [Moles/Vol] 4.3 mmol/L Normal 3.5-5.1 [facility] Comment on above: Performed By: #### U DINA, LIPID, TSH, BNP, CMP, T7 #### [facility] [address] [address] [address] Suzie Brooks Sodium [Moles/Vol] 136 mmol/L Normal 136-145 [facility] Comment on above: Performed By: #### U DINA, LIPID, TSH, BNP, CMP, T7 #### [facility] [address] [address] [address] Suzie Brooks Urea nitrogen [Mass/Vol] 14.0 mg/dL Normal 7.0-18.0 [facility] Comment on above: Performed By: #### U DINA, LIPID, TSH, BNP, CMP, T7 #### [facility] [address] [address] [address] Suzie Brooks Urea nitrogen/Creatinine [Mass ratio] 12.3 mg/mg Normal [facility] Comment on above: Performed By: #### U DINA, LIPID, TSH, BNP, CMP, T7 #### [facility] [address] [address] [address] Suzie Brooks URINE MICROSCOPIC ONLYon BACTERIA NONE SEEN Normal NONE SEEN [facility] Comment on above: Performed By: #### U DINA, LIPID, TSH, BNP, CMP, T7 #### [facility] [address] [address] [address] Suzie Brooks Bacteria identified Cx Nom (U) NOT INDICATED Normal [facility] Comment on above: Performed By: #### U DINA, LIPID, TSH, BNP, CMP, T7 #### [facility] [address] [address] [address] Suzie Brooks CAST NONE SEEN Normal NONE SEEN [facility] Comment on above: Performed By: #### U DINA, LIPID, TSH, BNP, CMP, T7 #### [facility] [address] [place] [address] Dr. Suzie Brooks Crystals LM Nom (Urine sed) NONE SEEN Normal NONE SEEN [facility] Comment on above: Performed By: #### U DINA, LIPID, TSH, BNP, CMP, T7 #### [facility] [address] [place] [address] Dr. Suzie Brooks Epithelial cells LM Ql (Urine sed) RARE Normal NONE SEEN /RARE [facility] Comment on above: Performed By: #### U DINA, LIPID, TSH, BNP, CMP, T7 #### [facility] [address] [place] [address] Dr. Suzie Brooks MUCOUS NONE SEEN Normal NONE SEEN [facility] Comment on above: Performed By: #### U DINA, LIPID, TSH, BNP, CMP, T7 #### [facility] [address] [place] [address] Dr. Suzie Brooks RBC 5-10 Abnormal 0-2 [facility] Comment on above: Performed By: #### U DINA, LIPID, TSH, BNP, CMP, T7 #### [facility] [address] [place] [address] Dr. Suzie Brooks WBC NONE SEEN Normal NONE SEEN [facility] Comment on above: Performed By: #### U DINA, LIPID, TSH, BNP, CMP, T7 #### [facility] [address] [place] [address] Dr. Suzie Brooks CITRATE URINE 24HRon 022 Citric Acid, U, 24hr 1312 mg/24 hr Critically high 320-124 0 [facility] Comment on above: Result Comment: This test was developed and its performance characteristics determined by [facility]. It has not been cleared or approved by the Food and Drug Administration. Performed By: #### U DINA, LIPID, TSH, BNP, CMP, T7 #### [facility] [address] [place] [address] Dr. Suzie Brooks Citric Acid, Urine 610 mg/L Normal Undefined [facility] Comment on above: Performed By: #### U DINA, LIPID, TSH, BNP, CMP, T7 #### [facility] [address] [place] [address] Dr. Suzie Brooks OXALATE 24HR URINEon 022 Oxalates, Urine 11 mg/L Normal Undefined [facility] Comment on above: Performed By: #### O [id number] #### [facility] [address] [place] [address] Dr. Suzie Brooks Oxalates, Urine 24hr 24 mg/24 hr Normal 7-44 [facility] Comment on above: Performed By: #### O [id number] #### [facility] [address] [place] [address] Dr. Suzie Brooks MAGNESIUM 24HR URINEon 02-02 Magnesium 24hr Urine 77.4 mg/24 hr Normal 12.0-293.0 [facility] Comment on above: Performed By: #### M AG24 #### [facility] [address] [place] [address] Dr. Suzie Brooks Magnesium UR 3.6 mg/dL Normal Not Estab. [facility] Comment on above: Performed By: #### M AG24 #### [facility] [address] [place] [address] Dr. Suzie Brooks PHOSPHORUS 24HR URINEon 01-10 Phosphorus, Urine 44.1 mg/dL Normal Not Estab. [facility] Comment on above: Performed By: #### U DINA, LIPID, TSH, BNP, CMP, T7 #### [facility] [address] [place], [place] [address] Dr. Suzie Brooks Phosphorus, Urine 24hr 948 mg/24 hr Normal 390-1425 [facility] Comment on above: Performed By: #### U DINA, LIPID, TSH, BNP, CMP, T7 #### [facility] [address] [place], [place] [address] Dr. Suzie Brooks URIC ACID 24 HR URINEon 01-10 Uric Acid, Urine 35.4 mg/dL Normal Not Estab. [facility] Comment on above: Performed By: #### U DINA, LIPID, TSH, BNP, CMP, T7 #### [facility] [address] [address] [address] Suzie Brooks Uric Acid, Urine 24hr 761.1 mg/24 hr Normal 182.4-936.8 [facility] Comment on above: Performed By: #### U DINA, LIPID, TSH, BNP, CMP, T7 #### [facility] [address] [place] [address] Dr. Suzie Brooks CALCIUM 24 HR URINEon 2021 CALC, 24 HR UR 187.0 mg/24 hr Normal 100.0-300.0 [facility] Comment on above: Performed By: #### U DINA, LIPID, TSH, BNP, CMP, T7 #### [facility] [address] [place], [place] [address] Dr. Suzie Brooks UR CALCIUM 8.7 mg/dL Normal 5.1-21.0 [facility] Comment on above: Performed By: #### U DINA, LIPID, TSH, BNP, CMP, T7 #### [facility] [address], [place] [address] Dr. Suzie Brooks UR TOT VOL 2150 ml/24 HR Normal [facility] Comment on above: Performed By: #### U DINA, LIPID, TSH, BNP, CMP, T7 #### [facility] [address] [place], [place] [address] Dr. Suzie Brooks CREA 24 HR URINEon CREA, 24 HR UR 1983.59 mg/24 hr Normal 1,000.00- 2,0 00.00 [facility] Comment on above: Performed By: #### U DINA, LIPID, TSH, BNP, CMP, T7 #### [facility] [address] [place] [address] [address] Suzie Brooks URINE CREAT 92.26 mg/dL Normal 20.00-300.00 [facility] Comment on above: Performed By: #### U DINA, LIPID, TSH, BNP, CMP, T7 #### [facility] [address] [place] [address] Dr. Suzie Brooks SODIUM 24 HR URINEon 022 NA, 24 HR UR 172 mmol/24 hr Normal 40-220 [facility] Comment on above: Performed By: #### U DINA, LIPID, TSH, BNP, CMP, T7 #### [facility] [address] [place] [address] Dr. Suzie Brooks Sodium (U) [Moles/Vol] 80 mmol/L Normal 30-90 [facility] Comment on above: Performed By: #### U DINA, LIPID, TSH, BNP, CMP, T7 #### [facility] [address] [place] [address] Dr. Suzie Brooks PTH INTACTon 01-31-2022 PTH, Intact 24 pg/mL Normal 15-65 [facility] Comment on above: Performed By: #### U DINA, LIPID, TSH, BNP, CMP, T7 #### [facility] [address] [place] [address] Dr. Suzie Brokos BUNon 01-30-2022 Urea nitrogen [Mass/Vol] 12.0 mg/dL Normal 7.0-18.0 [facility] Comment on above: Performed By: #### U DINA, LIPID, TSH, BNP, CMP, T7 #### [facility] [address] [place] [address] Dr. Suzie Brooks CALCIUMon 01-30-2022 Calcium [Mass/Vol] 8.6 mg/dL Normal 8.5-10.1 [facility] Comment on above: Performed By: #### U DINA, LIPID, TSH, BNP, CMP, T7 #### [facility] [address] [place] [address] Dr. Suzie Brooks CHLORIDEon 01-30-2022 Chloride [Moles/Vol] 104 mmol/L Normal 98-107 [facility] Comment on above: Performed By: #### U DINA, LIPID, TSH, BNP, CMP, T7 #### [facility] [address] [address] [address] Suzie Brooks CO2on 01-30-2022 CO2 [Moles/Vol] 29.3 mmol/L Normal 21.0-32.0 [facility] Comment on above: Performed By: #### U DINA, LIPID, TSH, BNP, CMP, T7 #### [facility] [address] [address] [address] Suzie Brooks CREATININEon 01-30-2022 Creatinine [Mass/Vol] 0.92 mg/dL Normal 0.70-1.30 [facility] Comment on above: Performed By: #### U DINA, LIPID, TSH, BNP, CMP, T7 #### [facility] [address] [address] [address] Suzie Brooks EGFR-AF ANGOLAN >60 Normal >=60 [facility] Comment on above: Performed By: #### U DINA, LIPID, TSH, BNP, CMP, T7 #### [facility] [address] [address] [address] Suzie Brooks EGFR-NON AF ANGOLAN >60 Normal >=60 [facility] Comment on above: Performed By: #### U DINA, LIPID, TSH, BNP, CMP, T7 #### [facility] [address] [address] [address] Suzie Brooks NAon 01-30-2022 Sodium [Moles/Vol] 140 mmol/L Normal 136-145 [facility] Comment on above: Performed By: #### U DINA, LIPID, TSH, BNP, CMP, T7 #### [facility] [address] [address] [address] Suzie Brooks POTASSIUMon 01-30-2022 Potassium [Moles/Vol] 4.0 mmol/L Normal 3.5-5.1 [facility] Comment on above: Performed By: #### U DINA, LIPID, TSH, BNP, CMP, T7 #### [facility] [address] [place], [place] [address] Dr. Suzie Brooks URIC ACID SERUMon 01-30-2022 Urate [Mass/Vol] 5.2 mg/dL Normal 3.5-7.2 [facility] Comment on above: Performed By: #### U DINA, LIPID, TSH, BNP, CMP, T7 #### [facility] [address] [place], [place] [address] Dr. Suzie Brooks US KIDNEYSon 12-18-2021 US KIDNEYS EXAMINATION: [facility] H[facility]: Kidney stone ; right flank [...] BEHZAD CARRASQUILLO Date: 2021-12-18 09:51 Normal [facility] XR KUB 1 VIEWon 11-21-2021 XR [...] by: BEHZAD CARRASQUILLO Date: 2021-11-21 09:45 Normal [facility] XR KUBon 11-15-2021 XR KUB [facility] Main [place] [address] [place], [place] [id number] XRay Report Signed Patient: Tom Aparicio MR#: [id number] 4 : 1950 Acct:[id number] Age/Sex: 71 / M ADM Date: 11/15/21 Loc: [place] Room: Type: [facility] Attending Dr: Miki Zeng MD Ordering Provider: [...] Hancock Jr., M.D.11/15/2021 10:43 AM Dictation Location: [place] [address] Transcribed By: [facility] 11/15/21 1043 Dictated By: Yared Hancock Jr, MD 11/15/21 1039 Signed By: 11/15/21 1043 Normal [facility] SARS-CoV-2 (COVID-19) RNA SUKHJINDER+probe Ql (Unsp spec) Negative Normal Negative [facility] Comment on above: Order Comment: Healt hcare Worker?: N Result Comment: Testing for SARS-CoV-2 by RT-PCR This test was developed and its performance characteristics determined by [employer]) and validated at the [facility]. This test has not been FDA cleared [...] is terminated or revoked sooner. PERFORMED BY: [place] [address] PATHOLOGIST SUPERVISOR [employer] JIA MINAYA M.D. Performed By: #### C OVID 19 [facility] #### [address] COVID-19 Positive/NegativeOr dered By: Miki Zeng on 11-13-2021 SARS-CoV-2 (COVID-19) N gene SUKHJINDER+probe Ql (Resp) Negative Negative [facility] Comment on above: Testing for SARS-CoV -2 by RT-PCRThis test was developed and its performance characteristics determined by [employer] ([employer]) and validated at the [facility]. This test has not been FDA cleared [...] sooner. CALCULI, URINARYon 2 2,8 Dihydroxyadenine Normal [facility] Comment on above: Performed By: #### U DINA, LIPID, TSH, BNP, CMP, T7 #### [facility] [address] [place] [address] [address] Suzie Brooks Ammonium Acid Urate Normal [facility] Comment on above: Performed By: #### U DINA, LIPID, TSH, BNP, CMP, T7 #### [facility] [address] [place] [address] [address] Suzie Brooks Bilirubin Ql (U) [facility] Comment on above: Performed By: #### U DINA, LIPID, TSH, BNP, CMP, T7 #### [facility] [address] [place] [address] [address] Suzie Brooks Ca Oxalate Dihydrate [facility] Comment on above: Performed By: #### U DINA, LIPID, TSH, BNP, CMP, T7 #### [facility] [address] [place] [address] [address] Suzie Brooks CaHPO4 ([place]) [facility] Comment on above: Performed By: #### U DINA, LIPID, TSH, BNP, CMP, T7 #### [facility] [address] [address] [address] Suzie Brooks Calcium Bilirubinate [facility] Comment on above: Performed By: #### U DINA, LIPID, TSH, BNP, CMP, T7 #### [facility] [address] [address] [address] Suzie Brooks Calcium Carbonate Normal [facility] Comment on above: Performed By: #### U DINA, LIPID, TSH, BNP, CMP, T7 #### [facility] [address] [address] [address] Suzie Brooks Calcium Oxalate Monohydrate 70 % [facility] Comment on above: Performed By: #### U DINA, LIPID, TSH, BNP, CMP, T7 #### [facility] [address] [address] [address] Suzie Brooks Calcium Palmitate [facility] Comment on above: Performed By: #### U DINA, LIPID, TSH, BNP, CMP, T7 #### [facility] [address] [address] [address] Suzie Brooks Calcium Phosphate Normal [facility] Comment on above: Performed By: #### U DINA, LIPID, TSH, BNP, CMP, T7 #### [facility] [address] [address] [address] Suzie Brooks Calcium Stearate Normal [facility] Comment on above: Performed By: #### U DINA, LIPID, TSH, BNP, CMP, T7 #### [facility] [address] [place] [address] [address] Suzie Brooks Carbonate Apatite Normal [facility] Comment on above: Performed By: #### U DINA, LIPID, TSH, BNP, CMP, T7 #### [facility] [address] [address] [address] Suzie Brooks Cellular Material Normal [facility] Comment on above: Performed By: #### U DINA, LIPID, TSH, BNP, CMP, T7 #### [facility] [address] [address] [address] Suzie Brooks Cholesterol Normal [facility] Comment on above: Performed By: #### U DINA, LIPID, TSH, BNP, CMP, T7 #### [facility] [address] [address] [address] Suzie Brooks Color (U) Brown Normal [facility] Comment on above: Performed By: #### U DINA, LIPID, TSH, BNP, CMP, T7 #### [facility] [address] [address] [address] Suzie Brooks Comment Normal [facility] Comment on above: Performed By: #### U DINA, LIPID, TSH, BNP, CMP, T7 #### [facility] [address] [address] [address] Suzie Brooks Comment: Comment Normal [facility] Comment on above: Result Comment: Fantasma baez questions regarding Calculi Analysis contact [facility] at: [phone]. Performed By: #### U DINA, LIPID, TSH, BNP, CMP, T7 #### [facility] [address] [address] [address] Suzie Brooks Composition Comment Normal [facility] Comment on above: Result Comment: Perc entage (Represents the % composition) Performed By: #### U DINA, LIPID, TSH, BNP, CMP, T7 #### [facility] [address] [address] [address] Suzie Brooks Cystine Normal [facility] Comment on above: Performed By: #### U DINA, LIPID, TSH, BNP, CMP, T7 #### [facility] [address] [place] [address] [address] Suzie Brooks Disclaimer: Comment Normal [facility] Comment on above: Result Comment: This test was developed and its performance characteristics determined by [employer]. It has not been cleared or approved by the Food and Drug Administration. Performed By: #### U DINA, LIPID, TSH, BNP, CMP, T7 #### [facility] [address] [place] [address] Dr. Suzie Brooks Dried Blood Normal [facility] Comment on above: Performed By: #### U DINA, LIPID, TSH, BNP, CMP, T7 #### [facility] [address] [address] [address] Suzie Brooks Drug or Metabolite Normal [facility] Comment on above: Performed By: #### U DINA, LIPID, TSH, BNP, CMP, T7 #### [facility] [address] [address] [address] Suzie Brooks Hydroxyapatite Normal [facility] Comment on above: Performed By: #### U DINA, LIPID, TSH, BNP, CMP, T7 #### [facility] [address] [address] [address] Suzie Brooks Mg NH4 PO4 (Struvite) [facility] Comment on above: Performed By: #### U DINA, LIPID, TSH, BNP, CMP, T7 #### [facility] [address] [address] [address] Suzie Brooks MgHPO4 ([place]) Normal [facility] Comment on above: Performed By: #### U DINA, LIPID, TSH, BNP, CMP, T7 #### [facility] [address] [address] [address] Suzie Brooks Other component(s) Normal [facility] Comment on above: Performed By: #### U DINA, LIPID, TSH, BNP, CMP, T7 #### [facility] [address] [address] [address] Suzie Brooks PDF . Normal [facility] Comment on above: Performed By: #### U DINA, LIPID, TSH, BNP, CMP, T7 #### [facility] [address] [address] [address] Suzie Brooks Photo Comment [facility] Comment on above: Result Comment: Phot ograph will follow under a separate cover Performed By: #### U DINA, LIPID, TSH, BNP, CMP, T7 #### [facility] [address] [address] [address] Suzie Brooks Please note: Comment Normal [facility] Comment on above: Result Comment: Calc shamika report will follow via computer, mail or manufacturing helper delivery. Performed By: #### U DINA, LIPID, TSH, BNP, CMP, T7 #### [facility] [address] [address] [address] Suzie Brooks Size 3x2 [facility] Comment on above: Result Comment: Mult iple pieces received. Dimensions of the largest piece reported. Performed By: #### U DINA, LIPID, TSH, BNP, CMP, T7 #### [facility] [address] [address] [address] Suzie Brooks Sodium Acid Urate Normal [facility] Comment on above: Performed By: #### U DINA, LIPID, TSH, BNP, CMP, T7 #### [facility] [address] [address] [address] Suzie Brooks Source Comment [facility] Comment on above: Result Comment: Jessica Reese Performed By: #### U DINA, LIPID, TSH, BNP, CMP, T7 #### [facility] [address] [address] [address] Suzie Brooks Triamterene [facility] Comment on above: Performed By: #### U DINA, LIPID, TSH, BNP, CMP, T7 #### [facility] [address] [place], [place] [address] Dr. Suzie Brooks Uric Acid 30 % Normal [facility] Comment on above: Performed By: #### U DINA, LIPID, TSH, BNP, CMP, T7 #### [facility] [address] [place], [place] [address] Dr. Suzie Brooks Uric Acid Dihydrate Normal [facility] Comment on above: Performed By: #### U DINA, LIPID, TSH, BNP, CMP, T7 #### [facility] [address] [place], [place] [address] Dr. Suzie Brooks Weight 12 mg Normal [facility] Comment on above: Performed By: #### U DINA, LIPID, TSH, BNP, CMP, T7 #### [facility] [address] [place], [place] [address] Dr. Suzie Brooks Xanthine Normal [facility] Comment on above: Performed By: #### U DINA, LIPID, TSH, BNP, CMP, T7 #### [facility] [address] [place], [place] [address] Dr. Suzie Brooks XR KUB 1 VIEWon [...] by: RAFAEL GRAVES Date: 2021-11-12 13:18 Normal [facility] XR CHEST 2 Von 11-08-2021 XR CHEST [...] CARLOS GROSS Date: 2021-11-08 15:50 Normal [facility] CBC AUTO DIFFon 11-07-2021 BASO # 0.0 103/ul Normal 0.0-0.1 [facility] Comment on above: Performed By: #### U DINA, LIPID, TSH, BNP, CMP, T7 #### [facility] [address] [place] [address] Dr. Suzie Brooks Basophils/100 WBC (Bld) 0.2 % Normal 0.2-2.0 [facility] Comment on above: Performed By: #### U DINA, LIPID, TSH, BNP, CMP, T7 #### [facility] [address] [place] [address] Dr. Suzie Brooks EO # 0.0 103/ul Normal 0.0-0.7 [facility] Comment on above: Performed By: #### U DINA, LIPID, TSH, BNP, CMP, T7 #### [facility] [address] [place] [address] Dr. Suzie Brooks Eosinophils/100 WBC (Bld) 0.0 % Critically low 0.9-7.0 [facility] Comment on above: Performed By: #### U DINA, LIPID, TSH, BNP, CMP, T7 #### [facility] [address] [place] [address] Dr. Suzie Brooks Erythrocyte distribution width (RBC) [Ratio] 14.0 % Normal 11.0-15.0 [facility] Comment on above: Performed By: #### U DINA, LIPID, TSH, BNP, CMP, T7 #### [facility] [address] [place] [address] Dr. Suzie Brooks Hematocrit (Bld) [Volume fraction] 41.8 % Critically low 42.0-54.0 [facility] Comment on above: Performed By: #### U DINA, LIPID, TSH, BNP, CMP, T7 #### [facility] [address] [address] [address] Suzie Brooks Hemoglobin (Bld) [Mass/Vol] 13.7 g/dL Critically low 14.0-18.0 [facility] Comment on above: Performed By: #### U DINA, LIPID, TSH, BNP, CMP, T7 #### [facility] [address] [place] [address] Dr. Suzie Brooks IG # 0.14 10e3/ul Critically high 0.00-0.03 [facility] Comment on above: Performed By: #### U DINA, LIPID, TSH, BNP, CMP, T7 #### [facility] [address] [place] [address] Dr. Suzie Brooks IG % 0.9 % Critically high 0.0-0.5 [facility] Comment on above: Performed By: #### U DINA, LIPID, TSH, BNP, CMP, T7 #### [facility] [address] [place] [address] Dr. Suzie Brooks LYMPH # 1.6 103/ul Normal 1.2-3.8 [facility] Comment on above: Performed By: #### U DINA, LIPID, TSH, BNP, CMP, T7 #### [facility] [address] [place] [address] Dr. Suzie Brooks Lymphocytes/100 WBC (Bld) 10.2 % Critically low 20.5-60.0 [facility] Comment on above: Performed By: #### U DINA, LIPID, TSH, BNP, CMP, T7 #### [facility] [address] [place] [address] Dr. Suzie Brooks MANUAL DIFF REQ NO Normal [facility] Comment on above: Performed By: #### U DINA, LIPID, TSH, BNP, CMP, T7 #### [facility] [address] [place] [address] Dr. Suzie Brooks MCH (RBC) [Entitic mass] 28.8 pg Normal 25.9-34.0 [facility] Comment on above: Performed By: #### U DINA, LIPID, TSH, BNP, CMP, T7 #### [facility] [address] [place] [address] Dr. Suzie Brooks MCHC (RBC) [Mass/Vol] 32.8 g/dL Normal 29.9-35.2 [facility] Comment on above: Performed By: #### U DINA, LIPID, TSH, BNP, CMP, T7 #### [facility] [address] [address] [address] Suzie Brooks MCV (RBC) [Entitic vol] 87.8 fL Normal 80.0-94.0 [facility] Comment on above: Performed By: #### U DINA, LIPID, TSH, BNP, CMP, T7 #### [facility] [address] [place] [address] [address] Suzie Brooks MONO # 1.0 103/ul Critically high 0.3-0.8 [facility] Comment on above: Performed By: #### U DINA, LIPID, TSH, BNP, CMP, T7 #### [facility] [address] [address] [address] Suzie Brooks Monocytes/100 WBC (Bld) 6.6 % Normal 1.7-12.0 [facility] Comment on above: Performed By: #### U DINA, LIPID, TSH, BNP, CMP, T7 #### [facility] [address] [address] [address] Suzie Brooks NEUT # 13.0 103/ul Critically high 1.4-6.5 [facility] Comment on above: Performed By: #### U DINA, LIPID, TSH, BNP, CMP, T7 #### [facility] [address] [address] [address] Suzie Brooks Neutrophils/100 WBC (Bld) 82.1 % Critically high 43.0-75.0 [facility] Comment on above: Performed By: #### U DINA, LIPID, TSH, BNP, CMP, T7 #### [facility] [address] [place] [address] Dr. Suzie Brooks Platelet mean volume (Bld) [Entitic vol] 9.3 fL Critically low 9.5-13.5 [facility] Comment on above: Performed By: #### U DINA, LIPID, TSH, BNP, CMP, T7 #### [facility] [address] [address] [address] Suzie Brooks PLT 301 103/ul Normal 150-450 [facility] Comment on above: Performed By: #### U DINA, LIPID, TSH, BNP, CMP, T7 #### [facility] [address] [address] [address] Suzie Brooks RBC 4.76 106/ul Normal 4.70-6.10 [facility] Comment on above: Performed By: #### U DINA, LIPID, TSH, BNP, CMP, T7 #### [facility] [address] [place] [address] Dr. Suzie Brooks WBC 15.9 103/ul Critically high 4.0-11.0 [facility] Comment on above: Performed By: #### U DINA, LIPID, TSH, BNP, CMP, T7 #### [facility] [address] [place] [address] Dr. Suzie Brooks POINT OF CARE GLUCOSEon 10-11 Glucose [Mass/Vol] 128 mg/dL Critically high 74-106 [facility] Comment on above: Performed By: #### U DINA, LIPID, TSH, BNP, CMP, T7 #### [facility] [address] [place] [address] Dr. Suzie Brooks PROF 14(COMP METB)on 022 Albumin [Mass/Vol] 3.1 g/dL Critically low 3.4-5.0 [facility] Comment on above: Performed By: #### M AG24 #### [facility] [address] [place] [address] Dr. Suzie Brooks Albumin/Globulin [Mass ratio] 0.9 {ratio} Normal [facility] Comment on above: Performed By: #### M AG24 #### [facility] [address] [place] [address] Dr. Suzie Brooks ALP [Catalytic activity/Vol] 52 U/L Normal 46-116 [facility] Comment on above: Performed By: #### M AG24 #### [facility] [address] [place] [address] Dr. Suzie Brooks ALT [Catalytic activity/Vol] 39 U/L Normal 16-63 [facility] Comment on above: Performed By: #### M AG24 #### [facility] [address] [place] [address] Dr. Suzie Brooks Anion gap [Moles/Vol] 14.7 mmol/L Normal [facility] Comment on above: Performed By: #### M AG24 #### [facility] [address] [place] [address] Dr. Suzie Brooks AST [Catalytic activity/Vol] 27 U/L Normal 15-37 [facility] Comment on above: Performed By: #### M AG24 #### [facility] [address] [place] [address] Dr. Suzie Brooks Bilirubin [Mass/Vol] 0.4 mg/dL Normal 0.2-1.3 [facility] Comment on above: Performed By: #### M AG24 #### [facility] [address] [place] [address] Dr. Suzie Brooks Calcium [Mass/Vol] 7.7 mg/dL Critically low 8.5-10.1 [facility] Comment on above: Performed By: #### M AG24 #### [facility] [address] [place] [address] Dr. Suzie Brooks Chloride [Moles/Vol] 104 mmol/L Normal 98-107 [facility] Comment on above: Performed By: #### M AG24 #### [facility] [address] [place] [address] Dr. Suzie Brooks CO2 [Moles/Vol] 23.4 mmol/L Normal 22.0-30.0 [facility] Comment on above: Performed By: #### M AG24 #### [facility] [address] [place] [address] Dr. Suzie Brooks Creatinine [Mass/Vol] 1.03 mg/dL Normal 0.66-1.25 [facility] Comment on above: Performed By: #### M AG24 #### [facility] [address] [place] [address] Dr. Suzie Brooks EGFR-AF ANGOLAN >60 Normal >=60 [facility] Comment on above: Performed By: #### M AG24 #### [facility] [address] [place] [address] [address] Suzie Brooks EGFR-NON AF ANGOLAN >60 Normal >=60 [facility] Comment on above: Performed By: #### M AG24 #### [facility] [address] [address] [address] Suzie Brooks Globulin (S) [Mass/Vol] 3.5 g/dL Normal [facility] Comment on above: Performed By: #### M AG24 #### [facility] [address] [address] [address] Suzie Brooks Glucose [Mass/Vol] 142 mg/dL Critically high 74-106 [facility] Comment on above: Performed By: #### M AG24 #### [facility] [address] [address] [address] Suzie Brooks Potassium [Moles/Vol] 4.1 mmol/L Normal 3.4-5.0 [facility] Comment on above: Performed By: #### M AG24 #### [facility] [address] [address] [address] Suzie Brooks Protein [Mass/Vol] 6.6 g/dL Normal 6.1-8.2 [facility] Comment on above: Performed By: #### M AG24 #### [facility] [address] [address] [address] Suzie Brooks Sodium [Moles/Vol] 138 mmol/L Normal 137-145 [facility] Comment on above: Performed By: #### M AG24 #### [facility] [address] [place] [address] [address] Suzie Brooks Urea nitrogen [Mass/Vol] 15.0 mg/dL Normal 7.0-18.0 [facility] [facility] Comment on above: Performed By: #### M AG24 #### [facility] [address] [address] [address] Suzie Brooks Urea nitrogen/Creatinine [Mass ratio] 14.6 mg/mg Normal [facility] Comment on above: Performed By: #### M AG24 #### [facility] [address] [address] [address] Suzie Brooks CBC AUTO DIFFon 11-06-2021 BASO # 0.1 103/ul Normal 0.0-0.1 [facility] Comment on above: Performed By: #### U DINA, LIPID, TSH, BNP, CMP, T7 #### [facility] [address] [place] [address] Dr. Suzie Brooks Basophils/100 WBC (Bld) 0.5 % Normal 0.2-2.0 [facility] Comment on above: Performed By: #### U DINA, LIPID, TSH, BNP, CMP, T7 #### [facility] [address] [place] [address] Dr. Suzie Brooks EO # 0.3 103/ul Normal 0.0-0.7 [facility] Comment on above: Performed By: #### U DINA, LIPID, TSH, BNP, CMP, T7 #### [facility] [address] [place] [address] Dr. Suzie Brooks Eosinophils/100 WBC (Bld) 2.1 % Normal 0.9-7.0 [facility] Comment on above: Performed By: #### U DINA, LIPID, TSH, BNP, CMP, T7 #### [facility] [address] [place] [address] Dr. Suzie Brooks Erythrocyte distribution width (RBC) [Ratio] 13.8 % Normal 11.0-15.0 [facility] Comment on above: Performed By: #### U DINA, LIPID, TSH, BNP, CMP, T7 #### [facility] [address] [place] [address] Dr. Suzie Brooks Hematocrit (Bld) [Volume fraction] 46.9 % Normal 42.0-54.0 [facility] Comment on above: Performed By: #### U DINA, LIPID, TSH, BNP, CMP, T7 #### [facility] [address] [place] [address] Dr. Suzie Brooks Hemoglobin (Bld) [Mass/Vol] 15.4 g/dL Normal 14.0-18.0 [facility] Comment on above: Performed By: #### U DINA, LIPID, TSH, BNP, CMP, T7 #### [facility] [address] [place] [address] Dr. Suzie Brooks IG # 0.05 10e3/ul Critically high 0.00-0.03 [facility] Comment on above: Performed By: #### U DINA, LIPID, TSH, BNP, CMP, T7 #### [facility] [address] [place] [address] Dr. Suzie Brooks IG % 0.4 % Normal 0.0-0.5 [facility] Comment on above: Performed By: #### U DINA, LIPID, TSH, BNP, CMP, T7 #### [facility] [address] [place] [address] Dr. Suzie Brooks LYMPH # 2.8 103/ul Normal 1.2-3.8 [facility] Comment on above: Performed By: #### U DINA, LIPID, TSH, BNP, CMP, T7 #### [facility] [address] [place] [address] Dr. Suzie Brooks Lymphocytes/100 WBC (Bld) 22.5 % Normal 20.5-60.0 [facility] Comment on above: Performed By: #### U DINA, LIPID, TSH, BNP, CMP, T7 #### [facility] [address] [place] [address] Dr. Suzie Brooks MANUAL DIFF REQ NO Normal [facility] Comment on above: Performed By: #### U DINA, LIPID, TSH, BNP, CMP, T7 #### [facility] [address] [place] [address] Dr. Suzie Brooks MCH (RBC) [Entitic mass] 28.6 pg Normal 25.9-34.0 [facility] Comment on above: Performed By: #### U DINA, LIPID, TSH, BNP, CMP, T7 #### [facility] [address] [place] [address] Dr. Suzie Brooks MCHC (RBC) [Mass/Vol] 32.8 g/dL Normal 29.9-35.2 [facility] Comment on above: Performed By: #### U DINA, LIPID, TSH, BNP, CMP, T7 #### [facility] [address] [place] [address] Dr. Suzie Brooks MCV (RBC) [Entitic vol] 87.0 fL Normal 80.0-94.0 [facility] Comment on above: Performed By: #### U DINA, LIPID, TSH, BNP, CMP, T7 #### [facility] [address] [address] [address] Suzie Brooks MONO # 0.9 103/ul Critically high 0.3-0.8 [facility] Comment on above: Performed By: #### U DINA, LIPID, TSH, BNP, CMP, T7 #### [facility] [address] [place] [address] Dr. Suzie Brooks Monocytes/100 WBC (Bld) 6.9 % Normal 1.7-12.0 [facility] Comment on above: Performed By: #### U DINA, LIPID, TSH, BNP, CMP, T7 #### [facility] [address] [place] [address] Dr. Suzie Boroks NEUT # 8.4 103/ul Critically high 1.4-6.5 [facility] Comment on above: Performed By: #### U DINA, LIPID, TSH, BNP, CMP, T7 #### [facility] [address] [place] [address] Dr. Suzie Brooks Neutrophils/100 WBC (Bld) 67.6 % Normal 43.0-75.0 [facility] Comment on above: Performed By: #### U DINA, LIPID, TSH, BNP, CMP, T7 #### [facility] [address] [place] [address] Dr. Suzie Brooks Platelet mean volume (Bld) [Entitic vol] 9.6 fL Normal 9.5-13.5 [facility] Comment on above: Performed By: #### U DINA, LIPID, TSH, BNP, CMP, T7 #### [facility] [address] [place] [address] Dr. Suzie Brooks PLT 284 103/ul Normal 150-450 [facility] Comment on above: Performed By: #### U DINA, LIPID, TSH, BNP, CMP, T7 #### [facility] [address] [place] [address] Dr. Szuie Brooks RBC 5.39 106/ul Normal 4.70-6.10 [facility] Comment on above: Performed By: #### U DINA, LIPID, TSH, BNP, CMP, T7 #### [facility] [address] [place] [address] Dr. Suzie Brooks WBC 12.5 103/ul Critically high 4.0-11.0 [facility] Comment on above: Performed By: #### U DINA, LIPID, TSH, BNP, CMP, T7 #### [facility] [address] [place] [address] Dr. Suzie Brooks CULTURE BLOODon 11-06-2021 Microscopic examination of blood, culture Culture Observations: NO GROWTH AT 5 DAYS. Normal [facility] Comment on above: Performed By: #### M AG24 #### [facility] [address] [place] [address] Dr. Suzie Boroks CULTURE URINEon 11-06-2021 CULTURE URINE Culture Observations : NO GROWTH. Normal [facility] Comment on above: Performed By: #### M AG24 #### [facility] [address] [place] [address] Dr. Suzie Brooks [facility]10 SARS-CoV-2 (COVID-19) RNA SUKHJINDER+probe Ql (Unsp spec) Not detected Normal NOT DETECTED [facility] Comment on above: Result Comment: When diagnostic testing is negative, the possibility of a false negative should be considered in the context of a patient's recent exposures and the presence of clinical signs and symptoms consistent with SARS-CoV-2. This test is not yet approved or cleared by the [place] Food and Drug Administration (FDA). This test was developed by [employer], [place], [place]. The performance characteristics of this test were validated by [facility]. The results are not intended to be used as the sole means for clinical diagnosis or patient management decisions. [facility] is authorized under Clinical Laboratory Improvement [...] for this test is supported by the [employer] of Health and Human Service's declaration that [...] DINA, LIPID, TSH, BNP, CMP, T7 #### [facility] [address] [place] [address] Dr. Suzie Brooks ER URINE PROFILEon 2 Bilirubin Ql (U) Negative Normal NEGATIVE [facility] Comment on above: Performed By: #### U DINA, LIPID, TSH, BNP, CMP, T7 #### [facility] [address] [place] [address] Dr. Suzie Brooks Clarity (U) CLEAR Normal CLEAR [facility] Comment on above: Performed By: #### U DINA, LIPID, TSH, BNP, CMP, T7 #### [facility] [address] [place] [address] Dr. Suzie Brooks Color (U) YELLOW Normal YELLOW [facility] Comment on above: Performed By: #### U DINA, LIPID, TSH, BNP, CMP, T7 #### [facility] [address] [place] [address] Dr. Suzie Brooks ERUAHD A micrscopic examina tion will be performed if indicated. Normal [facility] Comment on above: Performed By: #### U DINA, LIPID, TSH, BNP, CMP, T7 #### [facility] [address] [place] [address] Dr. Suzie Brooks Glucose Ql (U) Negative Normal NEGATIVE [facility] Comment on above: Performed By: #### U DINA, LIPID, TSH, BNP, CMP, T7 #### [facility] [address] [address] [address] Suzie Brooks Hemoglobin Ql (U) LARGE Abnormal NEGATIVE [facility] Comment on above: Performed By: #### U DINA, LIPID, TSH, BNP, CMP, T7 #### [facility] [address] [address] [address] Suzie Brooks Ketones Ql (U) Negative Normal NEGATIVE [facility] Comment on above: Performed By: #### U DINA, LIPID, TSH, BNP, CMP, T7 #### [facility] [address] [address] [address] Suzie Brooks LEUKOCYTES TRACE Abnormal NEGATIVE [facility] Comment on above: Performed By: #### U DINA, LIPID, TSH, BNP, CMP, T7 #### [facility] [address] [place] [address] Dr. Suzie Brooks Nitrite Ql (U) Negative Normal NEGATIVE [facility] Comment on above: Performed By: #### U DINA, LIPID, TSH, BNP, CMP, T7 #### [facility] [address] [place] [address] Dr. Suzie Brooks pH (U) 5.0 [pH] Normal 5-9 [facility] Comment on above: Performed By: #### U DINA, LIPID, TSH, BNP, CMP, T7 #### [facility] [address] [address] [address] Suzie Brooks Protein (U) [Mass/Vol] 100 mg/dL Abnormal NEGATIVE/ TRACE [facility] Comment on above: Performed By: #### U DINA, LIPID, TSH, BNP, CMP, T7 #### [facility] [address] [place] [address] Dr. Suzie Brooks SPEC GRAVITY 1.030 Abnormal 1.005-<=1.02 5 [facility] Comment on above: Performed By: #### U DINA, LIPID, TSH, BNP, CMP, T7 #### [facility] [address] [place] [address] Dr. Suzie Brooks UR MICRO IND INDICATED Normal [facility] Comment on above: Performed By: #### U DINA, LIPID, TSH, BNP, CMP, T7 #### [facility] [address] [address] [address] Suzie Brooks Urobilinogen Qn (U) 0.2 {Behzad'U}/dL Normal 0.2 - 1. 0 [facility] Comment on above: Performed By: #### U DINA, LIPID, TSH, BNP, CMP, T7 #### [facility] [address] [address] [address] Suzie Brooks LACTATE/LACTIC ACIDon 2021 Lactate [Moles/Vol] 1.0 mmol/L Normal 0.7-2.0 [facility] Comment on above: Performed By: #### U DINA, LIPID, TSH, BNP, CMP, T7 #### [facility] [address] [place] [address] Dr. Suzie Brooks PROF 14(COMP METB)on 022 Albumin [Mass/Vol] 3.8 g/dL Normal 3.4-5.0 [facility] Comment on above: Performed By: #### U DINA, LIPID, TSH, BNP, CMP, T7 #### [facility] [address] [address] [address] Suzie Brooks Albumin/Globulin [Mass ratio] 1.0 {ratio} Normal [facility] Comment on above: Performed By: #### U DINA, LIPID, TSH, BNP, CMP, T7 #### [facility] [address] [address] [address] Suzie Brooks ALP [Catalytic activity/Vol] 66 U/L Normal 46-116 [facility] Comment on above: Performed By: #### U DINA, LIPID, TSH, BNP, CMP, T7 #### [facility] [address] [address] [address] Suzie Brooks ALT [Catalytic activity/Vol] 52 U/L Normal 16-63 [facility] Comment on above: Performed By: #### U DINA, LIPID, TSH, BNP, CMP, T7 #### [facility] [address] [address] [address] Suzie Brooks Anion gap [Moles/Vol] 14.7 mmol/L Normal [facility] Comment on above: Performed By: #### U DINA, LIPID, TSH, BNP, CMP, T7 #### [facility] [address] [address] [address] Suzie Brooks AST [Catalytic activity/Vol] 40 U/L Critically high 15-37 [facility] Comment on above: Performed By: #### U DINA, LIPID, TSH, BNP, CMP, T7 #### [facility] [address] [address] [address] Suzie Brooks Bilirubin [Mass/Vol] 0.6 mg/dL Normal 0.2-1.3 [facility] Comment on above: Performed By: #### U DINA, LIPID, TSH, BNP, CMP, T7 #### [facility] [address] [address] [address] Suzie Brooks Calcium [Mass/Vol] 8.2 mg/dL Critically low 8.5-10.1 [facility] Comment on above: Performed By: #### U DINA, LIPID, TSH, BNP, CMP, T7 #### [facility] [address] [address] [address] Suzie Brooks Chloride [Moles/Vol] 102 mmol/L Normal 98-107 [facility] Comment on above: Performed By: #### U DINA, LIPID, TSH, BNP, CMP, T7 #### [facility] [address] [address] [address] Suzie Brooks CO2 [Moles/Vol] 27.4 mmol/L Normal 22.0-30.0 [facility] Comment on above: Performed By: #### U DINA, LIPID, TSH, BNP, CMP, T7 #### [facility] [address] [address] [address] Suzie Brooks Creatinine [Mass/Vol] 1.05 mg/dL Normal 0.66-1.25 [facility] Comment on above: Performed By: #### U DINA, LIPID, TSH, BNP, CMP, T7 #### [facility] [address] [address] [address] Suzie Brooks EGFR-AF ANGOLAN >60 Normal >=60 [facility] Comment on above: Performed By: #### U DINA, LIPID, TSH, BNP, CMP, T7 #### [facility] [address] [address] [address] Suzie Brooks EGFR-NON AF ANGOLAN >60 Normal >=60 [facility] Comment on above: Performed By: #### U DINA, LIPID, TSH, BNP, CMP, T7 #### [facility] [address] [address] [address] Suzie Brooks Globulin (S) [Mass/Vol] 3.7 g/dL Normal [facility] Comment on above: Performed By: #### U DINA, LIPID, TSH, BNP, CMP, T7 #### [facility] [address] [address] [address] Suzie Brooks Glucose [Mass/Vol] 124 mg/dL Critically high 74-106 [facility] Comment on above: Performed By: #### U DINA, LIPID, TSH, BNP, CMP, T7 #### [facility] [address] [address] [address] Suzie Brooks Potassium [Moles/Vol] 4.1 mmol/L Normal 3.4-5.0 [facility] Comment on above: Performed By: #### U DINA, LIPID, TSH, BNP, CMP, T7 #### [facility] [address] [address] [address] Suzie Brooks Protein [Mass/Vol] 7.5 g/dL Normal 6.1-8.2 [facility] Comment on above: Performed By: #### U DINA, LIPID, TSH, BNP, CMP, T7 #### [facility] [address] [address] [address] Suzie Brooks Sodium [Moles/Vol] 140 mmol/L Normal 137-145 [facility] Comment on above: Performed By: #### U DINA, LIPID, TSH, BNP, CMP, T7 #### [facility] [address] [place] [address] Dr. Suzie Brooks Urea nitrogen [Mass/Vol] 16.0 mg/dL Normal 7.0-18.0 [facility] Comment on above: Performed By: #### U DINA, LIPID, TSH, BNP, CMP, T7 #### [facility] [address] [address] [address] Suzie Brooks Urea nitrogen/Creatinine [Mass ratio] 15.2 mg/mg Normal [facility] Comment on above: Performed By: #### U DINA, LIPID, TSH, BNP, CMP, T7 #### [facility] [address] [place] [address] Dr. Suzie Brooks URINE MICROSCOPIC ONLYon BACTERIA SMALL Abnormal NONE SEEN [facility] Comment on above: Performed By: #### U DINA, LIPID, TSH, BNP, CMP, T7 #### [facility] [address] [place] [address] Dr. Suzie Brooks Bacteria identified Cx Nom (U) INDICATED Normal [facility] Comment on above: Performed By: #### U DINA, LIPID, TSH, BNP, CMP, T7 #### [facility] [address] [place] [address] Dr. Suzie Brooks CAST NONE SEEN Normal NONE SEEN [facility] Comment on above: Performed By: #### U DINA, LIPID, TSH, BNP, CMP, T7 #### [facility] [address] [place] [address] Dr. Suzie Brooks Crystals LM Nom (Urine sed) NONE SEEN Normal NONE SEEN [facility] Comment on above: Performed By: #### U DINA, LIPID, TSH, BNP, CMP, T7 #### [facility] [address] [place] [address] Dr. Suzie Brooks Epithelial cells LM Ql (Urine sed) RARE Normal NONE SEEN /RARE [facility] Comment on above: Performed By: #### U DINA, LIPID, TSH, BNP, CMP, T7 #### [facility] [address] [place] [address] Dr. Suzei Brooks MUCOUS NONE SEEN Normal NONE SEEN [facility] Comment on above: Performed By: #### U DINA, LIPID, TSH, BNP, CMP, T7 #### [facility] [address] [place] [address] Dr. Suzie Brooks RBC 50-75 Abnormal 0-2 [facility] Comment on above: Performed By: #### U DINA, LIPID, TSH, BNP, CMP, T7 #### [facility] [address], [place] [address] Dr. Suzie Brooks WBC 20-50 Abnormal NONE SEEN [facility] Comment on above: Performed By: #### U DINA, LIPID, TSH, BNP, CMP, T7 #### [facility] [address], [place] [address] Dr. Suzie Brooks XR KUB 1 VIEWon [...] BEHZAD SANTOS Date: 2021-11-06 21:58 Normal [facility] XR KUB 1 VIEW EXAMINATION: XR [...] RAFAEL GRAVES Date: 2021-11-06 08:06 Normal [facility] CBC AUTO DIFFon 11-05-2021 BASO # 0.1 103/ul Normal 0.0-0.1 [facility] Comment on above: Performed By: #### U DINA, LIPID, TSH, BNP, CMP, T7 #### [facility] [address] [id number] Suzie Brooks Basophils/100 WBC (Bld) 0.6 % Normal 0.2-2.0 [facility] Comment on above: Performed By: #### U DINA, LIPID, TSH, BNP, CMP, T7 #### [facility] [address] [place] [address] Dr. Suzie Brooks EO # 0.3 103/ul Normal 0.0-0.7 [facility] Comment on above: Performed By: #### U DINA, LIPID, TSH, BNP, CMP, T7 #### [facility] [address] [place] [address] Dr. Suzie Brooks Eosinophils/100 WBC (Bld) 2.2 % Normal 0.9-7.0 [facility] Comment on above: Performed By: #### U DINA, LIPID, TSH, BNP, CMP, T7 #### [facility] [address] [place] [address] Dr. Suzie Brooks Erythrocyte distribution width (RBC) [Ratio] 13.7 % Normal 11.0-15.0 [facility] Comment on above: Performed By: #### U DINA, LIPID, TSH, BNP, CMP, T7 #### [facility] [address] [place] [address] Dr. Suzie Brooks Hematocrit (Bld) [Volume fraction] 49.0 % Normal 42.0-54.0 [facility] Comment on above: Performed By: #### U DINA, LIPID, TSH, BNP, CMP, T7 #### [facility] [address] [place] [address] Dr. Suzie Brooks Hemoglobin (Bld) [Mass/Vol] 15.9 g/dL Normal 14.0-18.0 [facility] Comment on above: Performed By: #### U DINA, LIPID, TSH, BNP, CMP, T7 #### [facility] [address] [place] [address] Dr. Suzie Brooks IG # 0.07 10e3/ul Critically high 0.00-0.03 [facility] Comment on above: Performed By: #### U DINA, LIPID, TSH, BNP, CMP, T7 #### [facility] [address] [place] [address] Dr. Suzie Brooks IG % 0.5 % Normal 0.0-0.5 [facility] Comment on above: Performed By: #### U DINA, LIPID, TSH, BNP, CMP, T7 #### [facility] [address] [place] [address] Dr. Suzie Brooks LYMPH # 3.1 103/ul Normal 1.2-3.8 [facility] Comment on above: Performed By: #### U DINA, LIPID, TSH, BNP, CMP, T7 #### [facility] [address] [place] [address] Dr. Suzie Brooks Lymphocytes/100 WBC (Bld) 23.8 % Normal 20.5-60.0 [facility] Comment on above: Performed By: #### U DINA, LIPID, TSH, BNP, CMP, T7 #### [facility] [address] [place] [address] Dr. Suzie Brooks MANUAL DIFF REQ NO Normal [facility] Comment on above: Performed By: #### U DINA, LIPID, TSH, BNP, CMP, T7 #### [facility] [address] [place] [address] Dr. Suzie Brooks MCH (RBC) [Entitic mass] 28.8 pg Normal 25.9-34.0 [facility] Comment on above: Performed By: #### U DINA, LIPID, TSH, BNP, CMP, T7 #### [facility] [address] [place] [address] Dr. Suzie Brooks MCHC (RBC) [Mass/Vol] 32.4 g/dL Normal 29.9-35.2 [facility] Comment on above: Performed By: #### U DINA, LIPID, TSH, BNP, CMP, T7 #### [facility] [address] [place] [address] Dr. Suzie Brooks MCV (RBC) [Entitic vol] 88.8 fL Normal 80.0-94.0 [facility] Comment on above: Performed By: #### U DIAN, LIPID, TSH, BNP, CMP, T7 #### [facility] [address] [place] [address] Dr. Suzie Brooks MONO # 0.9 103/ul Critically high 0.3-0.8 [facility] Comment on above: Performed By: #### U DINA, LIPID, TSH, BNP, CMP, T7 #### [facility] [address] [address] [address] Suzie Brooks Monocytes/100 WBC (Bld) 6.8 % Normal 1.7-12.0 [facility] Comment on above: Performed By: #### U DINA, LIPID, TSH, BNP, CMP, T7 #### [facility] [address] [address] [address] Suzie Brooks NEUT # 8.7 103/ul Critically high 1.4-6.5 [facility] Comment on above: Performed By: #### U DINA, LIPID, TSH, BNP, CMP, T7 #### [facility] [address] [place] [address] Dr. Suzie Brooks Neutrophils/100 WBC (Bld) 66.1 % Normal 43.0-75.0 [facility] Comment on above: Performed By: #### U DINA, LIPID, TSH, BNP, CMP, T7 #### [facility] [address] [address] [address] Suzie Brooks Platelet mean volume (Bld) [Entitic vol] 9.4 fL Critically low 9.5-13.5 [facility] Comment on above: Performed By: #### U DINA, LIPID, TSH, BNP, CMP, T7 #### [facility] [address] [place] [address] Dr. Suzie Brooks PLT 278 103/ul Normal 150-450 [facility] Comment on above: Performed By: #### U DINA, LIPID, TSH, BNP, CMP, T7 #### [facility] [address] [place] [address] Dr. Suzie Brooks RBC 5.52 106/ul Normal 4.70-6.10 [facility] Comment on above: Performed By: #### U DINA, LIPID, TSH, BNP, CMP, T7 #### [facility] [address] [place] [address] Dr. Suzie Brooks WBC 13.1 103/ul Critically high 4.0-11.0 [facility] Comment on above: Performed By: #### U DINA, LIPID, TSH, BNP, CMP, T7 #### [facility] [address] [place], [place] [address] ABD/PELVIS WO CONon [...] RAFAEL GRAVES Date: 2021-11-05 11:46 Normal [facility] CULTURE URINEon 11-05-2021 CULTURE URINE Culture Observations : No growth Normal [facility] Comment on above: Performed By: #### M AG24 #### [facility] [address] [place], [place] [address] Dr. Suzie Brooks ER URINE PROFILEon 2 Bilirubin Ql (U) Negative Normal NEGATIVE [facility] Comment on above: Performed By: #### C VDTBH #### [facility] [address] [place] [address] Dr. Suzie Brooks Clarity (U) CLEAR Normal CLEAR [facility] Comment on above: Performed By: #### C VDTBH #### [facility] [address] [place] [address] Dr. Suzie Brooks Color (U) DK. YELLOW Normal YELLOW [facility] Comment on above: Performed By: #### C VDTBH #### [facility] [address] [place] [address] Dr. Suzie Brooks ERUAHD A micrscopic examina tion will be performed if indicated. Normal [facility] Comment on above: Performed By: #### C VDTBH #### [facility] [address] [place] [address] Dr. Suzie Brooks Glucose Ql (U) Negative Normal NEGATIVE [facility] Comment on above: Performed By: #### C VDTBH #### [facility] [address] [place] [address] Dr. Suzie Brooks Hemoglobin Ql (U) LARGE Abnormal NEGATIVE [facility] Comment on above: Performed By: #### C VDTBH #### [facility] [address] [place] [address] Dr. Suzie Brooks Ketones Ql (U) Negative Normal NEGATIVE [facility] Comment on above: Performed By: #### C VDTBH #### [facility] [address] [place] [address] Dr. Suzie Brooks LEUKOCYTES Negative Normal NEGATIVE [facility] Comment on above: Performed By: #### C VDTBH #### [facility] [address] [place] [address] Dr. Suzie Brooks Nitrite Ql (U) Negative Normal NEGATIVE [facility] Comment on above: Performed By: #### C VDTBH #### [facility] [address] [place] [address] Dr. Suzie Brooks pH (U) 5.0 [pH] Normal 5-9 [facility] Comment on above: Performed By: #### C VDTBH #### [facility] [address] [place] [address] Dr. Suzie Brooks Protein (U) [Mass/Vol] 100 mg/dL Abnormal NEGATIVE/ TRACE [facility] Comment on above: Performed By: #### C VDTBH #### [facility] [address] [place] [address] Dr. Suzie Brooks SPEC GRAVITY >=1.030 Abnormal 1.005-<=1.02 5 [facility] Comment on above: Performed By: #### C VDTBH #### [facility] [address] [place] [address] Dr. Suzie Brooks UR MICRO IND INDICATED Normal [facility] Comment on above: Performed By: #### C VDTBH #### [facility] [address] [place] [address] Dr. Suzie Brooks Urobilinogen Qn (U) 0.2 {Behzad'U}/dL Normal 0.2 - 1. 0 [facility] Comment on above: Performed By: #### C VDTBH #### [facility] [address] [place] [address] Dr. Suzie Brooks PROF 14(COMP METB)on 022 Albumin [Mass/Vol] 3.9 g/dL Normal 3.4-5.0 [facility] Comment on above: Performed By: #### U DINA, LIPID, TSH, BNP, CMP, T7 #### [facility] [address] [place] [address] Dr. Suzie Brooks Albumin/Globulin [Mass ratio] 1.1 {ratio} Normal [facility] Comment on above: Performed By: #### U DINA, LIPID, TSH, BNP, CMP, T7 #### [facility] [address] [place] [address] Dr. Suzie Brooks ALP [Catalytic activity/Vol] 64 U/L Normal 46-116 [facility] Comment on above: Performed By: #### U DINA, LIPID, TSH, BNP, CMP, T7 #### [facility] [address] [address] [address] Suzie Brooks ALT [Catalytic activity/Vol] 57 U/L Normal 16-63 [facility] Comment on above: Performed By: #### U DINA, LIPID, TSH, BNP, CMP, T7 #### [facility] [address] [address] [address] Suzie Brooks Anion gap [Moles/Vol] 14.4 mmol/L Normal [facility] Comment on above: Performed By: #### U DINA, LIPID, TSH, BNP, CMP, T7 #### [facility] [address] [address] [address] Suzie Brooks AST [Catalytic activity/Vol] 51 U/L Critically high 15-37 [facility] Comment on above: Performed By: #### U DINA, LIPID, TSH, BNP, CMP, T7 #### [facility] [address] [address] [address] Suzie Brooks Bilirubin [Mass/Vol] 0.8 mg/dL Normal 0.2-1.3 [facility] Comment on above: Performed By: #### U DINA, LIPID, TSH, BNP, CMP, T7 #### [facility] [address] [address] [address] Suzie Brooks Calcium [Mass/Vol] 8.5 mg/dL Normal 8.5-10.1 [facility] Comment on above: Performed By: #### U DINA, LIPID, TSH, BNP, CMP, T7 #### [facility] [address] [address] [address] Suzie Brooks Chloride [Moles/Vol] 103 mmol/L Normal 98-107 [facility] Comment on above: Performed By: #### U DINA, LIPID, TSH, BNP, CMP, T7 #### [facility] [address] [address] [address] Suzie Brooks CO2 [Moles/Vol] 26.8 mmol/L Normal 22.0-30.0 [facility] Comment on above: Performed By: #### U DINA, LIPID, TSH, BNP, CMP, T7 #### [facility] [address] [address] [address] Suzie Brooks Creatinine [Mass/Vol] 0.98 mg/dL Normal 0.66-1.25 [facility] Comment on above: Performed By: #### U DINA, LIPID, TSH, BNP, CMP, T7 #### [facility] [address] [address] [address] Suzie Brooks EGFR-AF ANGOLAN >60 Normal >=60 [facility] Comment on above: Performed By: #### U DINA, LIPID, TSH, BNP, CMP, T7 #### [facility] [address] [place] [address] Dr. Suzie Brooks EGFR-NON AF ANGOLAN >60 Normal >=60 [facility] Comment on above: Performed By: #### U DINA, LIPID, TSH, BNP, CMP, T7 #### [facility] [address] [place] [address] Dr. Suzie Brooks Globulin (S) [Mass/Vol] 3.7 g/dL Normal [facility] Comment on above: Performed By: #### U DINA, LIPID, TSH, BNP, CMP, T7 #### [facility] [address] [place] [address] Dr. Suzie Brooks Glucose [Mass/Vol] 118 mg/dL Critically high 74-106 [facility] Comment on above: Performed By: #### U DINA, LIPID, TSH, BNP, CMP, T7 #### [facility] [address] [place] [address] Dr. Suzie Brooks Potassium [Moles/Vol] 4.2 mmol/L Normal 3.4-5.0 [facility] Comment on above: Performed By: #### U DINA, LIPID, TSH, BNP, CMP, T7 #### [facility] [address] [place] [address] Dr. Suzie Brooks Protein [Mass/Vol] 7.6 g/dL Normal 6.1-8.2 [facility] Comment on above: Performed By: #### U DINA, LIPID, TSH, BNP, CMP, T7 #### [facility] [address] [place] [address] Dr. Suzie Brooks Sodium [Moles/Vol] 140 mmol/L Normal 137-145 [facility] Comment on above: Performed By: #### U DINA, LIPID, TSH, BNP, CMP, T7 #### [facility] [address] [place] [address] Dr. Suzie Brooks Urea nitrogen [Mass/Vol] 14.0 mg/dL Normal 7.0-18.0 [facility] Comment on above: Performed By: #### U DINA, LIPID, TSH, BNP, CMP, T7 #### [facility] [address] [place] [address] Dr. Suzie Brooks Urea nitrogen/Creatinine [Mass ratio] 14.3 mg/mg Normal [facility] Comment on above: Performed By: #### U DINA, LIPID, TSH, BNP, CMP, T7 #### [facility] [address] [place] [address] Dr. Suzie Brooks URINE MICROSCOPIC ONLYon BACTERIA MODERATE Abnormal NONE SEEN [facility] Comment on above: Performed By: #### C VDTBH #### [facility] [address] [place] [address] Dr. Suzie Brooks Bacteria identified Cx Nom (U) INDICATED Normal [facility] Comment on above: Performed By: #### C VDTBH #### [facility] [address] [place] [address] Dr. Suzie Brooks CAST SEEN Abnormal NONE SEEN [facility] Comment on above: Performed By: #### C VDTBH #### [facility] [address] [place] [address] Dr. Suzie Brooks Crystals LM Nom (Urine sed) NONE SEEN Normal NONE SEEN [facility] Comment on above: Performed By: #### C VDTBH #### [facility] [address] [place] [address] Dr. Suzie Brooks Epithelial cells LM Ql (Urine sed) RARE Normal NONE SEEN /RARE [facility] Comment on above: Performed By: #### C VDTBH #### [facility] [address] [place] [address] Dr. Suzie Brooks HYALINE CAST RARE Normal [facility] Comment on above: Performed By: #### C VDTBH #### [facility] [address] [address] [address] Suzie Brooks MUCOUS NONE SEEN Normal NONE SEEN [facility] Comment on above: Performed By: #### C VDTBH #### [facility] [address] [address] [address] Suzie Brooks RBC (U) [#/Vol] /uL Abnormal 0-2 [facility] Comment on above: Performed By: #### C VDTBH #### [facility] [address] [address] [address] Suzie Brooks WBC NONE SEEN Normal NONE SEEN [facility] Comment on above: Performed By: #### C VDTBH #### [facility] [address] [place] [address] Dr. Suzie Brooks XR KUB 1 VIEWon [...] BEHZAD CARRASQUILLO Date: 2021-11-01 12:07 Normal [facility] CBC AUTO DIFFon 10-26-2021 BASO # 0.1 103/ul Normal 0.0-0.1 [facility] Comment on above: Performed By: #### U DINA, LIPID, TSH, BNP, CMP, T7 #### [facility] [address] [address] [address] Suzie Brooks Basophils/100 WBC (Bld) 0.7 % Normal 0.2-2.0 [facility] Comment on above: Performed By: #### U DINA, LIPID, TSH, BNP, CMP, T7 #### [facility] [address] [place] [address] Dr. Suzie Brooks EO # 0.2 103/ul Normal 0.0-0.7 [facility] Comment on above: Performed By: #### U DINA, LIPID, TSH, BNP, CMP, T7 #### [facility] [address] [place] [address] Dr. Suzie Brooks Eosinophils/100 WBC (Bld) 1.5 % Normal 0.9-7.0 [facility] Comment on above: Performed By: #### U DINA, LIPID, TSH, BNP, CMP, T7 #### [facility] [address] [place] [address] Dr. Suzie Brooks Erythrocyte distribution width (RBC) [Ratio] 13.9 % Normal 11.0-15.0 [facility] Comment on above: Performed By: #### U DINA, LIPID, TSH, BNP, CMP, T7 #### [facility] [address] [place] [address] Dr. Suzie Brooks Hematocrit (Bld) [Volume fraction] 47.5 % Normal 42.0-54.0 [facility] Comment on above: Performed By: #### U DINA, LIPID, TSH, BNP, CMP, T7 #### [facility] [address] [place] [address] Dr. Suzie Brooks Hemoglobin (Bld) [Mass/Vol] 15.5 g/dL Normal 14.0-18.0 [facility] Comment on above: Performed By: #### U DINA, LIPID, TSH, BNP, CMP, T7 #### [facility] [address] [place] [address] Dr. Suzie Brooks IG # 0.06 10e3/ul Critically high 0.00-0.03 [facility] Comment on above: Performed By: #### U DINA, LIPID, TSH, BNP, CMP, T7 #### [facility] [address] [place] [address] Dr. Suzie Brooks IG % 0.5 % Normal 0.0-0.5 [facility] Comment on above: Performed By: #### U DINA, LIPID, TSH, BNP, CMP, T7 #### [facility] [address] [address] [address] Suzie Brooks LYMPH # 2.6 103/ul Normal 1.2-3.8 [facility] Comment on above: Performed By: #### U DINA, LIPID, TSH, BNP, CMP, T7 #### [facility] [address] [address] [address] Suzie Brooks Lymphocytes/100 WBC (Bld) 23.1 % Normal 20.5-60.0 [facility] Comment on above: Performed By: #### U DINA, LIPID, TSH, BNP, CMP, T7 #### [facility] [address] [address] [address] Suzie Brooks MANUAL DIFF REQ NO Normal [facility] Comment on above: Performed By: #### U DINA, LIPID, TSH, BNP, CMP, T7 #### [facility] [address] [place] [address] Dr. Suzie Brooks MCH (RBC) [Entitic mass] 28.9 pg Normal 25.9-34.0 [facility] Comment on above: Performed By: #### U DINA, LIPID, TSH, BNP, CMP, T7 #### [facility] [address] [place] [address] Dr. Suzie Brooks MCHC (RBC) [Mass/Vol] 32.6 g/dL Normal 29.9-35.2 [facility] Comment on above: Performed By: #### U DINA, LIPID, TSH, BNP, CMP, T7 #### [facility] [address] [address] [address] Suzie Brooks MCV (RBC) [Entitic vol] 88.5 fL Normal 80.0-94.0 [facility] Comment on above: Performed By: #### U DINA, LIPID, TSH, BNP, CMP, T7 #### [facility] [address] [place] [address] Dr. Suzie Brooks MONO # 0.9 103/ul Critically high 0.3-0.8 [facility] Comment on above: Performed By: #### U IDNA, LIPID, TSH, BNP, CMP, T7 #### [facility] [address] [address] [address] Suzie Brooks Monocytes/100 WBC (Bld) 7.9 % Normal 1.7-12.0 [facility] Comment on above: Performed By: #### U DINA, LIPID, TSH, BNP, CMP, T7 #### [facility] [address] [address] [address] Suzie Brooks NEUT # 7.4 103/ul Critically high 1.4-6.5 [facility] Comment on above: Performed By: #### U DINA, LIPID, TSH, BNP, CMP, T7 #### [facility] [address] [address] [address] Suzie Brooks Neutrophils/100 WBC (Bld) 66.3 % Normal 43.0-75.0 [facility] Comment on above: Performed By: #### U DINA, LIPID, TSH, BNP, CMP, T7 #### [facility] [address] [place] [address] Dr. Suzie Brooks Platelet mean volume (Bld) [Entitic vol] 9.6 fL Normal 9.5-13.5 [facility] Comment on above: Performed By: #### U DINA, LIPID, TSH, BNP, CMP, T7 #### [facility] [address] [place] [address] Dr. Suzie Brooks PLT 252 103/ul Normal 150-450 [facility] Comment on above: Performed By: #### U DINA, LIPID, TSH, BNP, CMP, T7 #### [facility] [address] [address] [address] Suzie Brooks RBC 5.37 106/ul Normal 4.70-6.10 [facility] Comment on above: Performed By: #### U DINA, LIPID, TSH, BNP, CMP, T7 #### [facility] [address] [place] [address] Dr. Suzie Brooks WBC 11.2 103/ul Critically high 4.0-11.0 [facility] Comment on above: Performed By: #### U DINA, LIPID, TSH, BNP, CMP, T7 #### [facility] [address] [place] [address] Dr. Suzie Brooks [facility]09 SARS-CoV-2 (COVID-19) RNA SUKHJINDER+probe Ql (Unsp spec) Not detected Normal NOT DETECTED [facility] Comment on above: Result Comment: This test is not yet approved or cleared by the [place] FDA. When there are no FDA-approved or cleared tests available, and other criteria are met, FDA can make tests available under an emergency access mechanism called an Emergency Use Authorization (EUA). The EUA for this test is supported by the [place] of Health and Human Service's (HHS's) declaration [...] DINA, LIPID, TSH, BNP, CMP, T7 #### [facility] [address] [place] [address] Dr. Suzie Brooks PROF CHEM 8 (BAS METB)on Anion gap [Moles/Vol] 7.7 mmol/L Normal [facility] Comment on above: Performed By: #### C VDTBH #### [facility] [address] [place] [address] Dr. Suzie Brooks Calcium [Mass/Vol] 8.6 mg/dL Normal 8.5-10.1 [facility] Comment on above: Performed By: #### C VDTBH #### [facility] [address] [place] [address] Dr. Suzie Brooks Chloride [Moles/Vol] 104 mmol/L Normal 98-107 [facility] Comment on above: Performed By: #### C VDTBH #### [facility] [address] [address] [address] Suzie Boroks CO2 [Moles/Vol] 31.8 mmol/L Critically high 22.0-30.0 [facility] Comment on above: Performed By: #### C VDTBH #### [facility] [address] [address] [address] Suzie Brooks Creatinine [Mass/Vol] 0.99 mg/dL Normal 0.66-1.25 [facility] Comment on above: Performed By: #### C VDTBH #### [facility] [address] [address] [address] Suzie Brooks EGFR-AF ANGOLAN >60 Normal >=60 [facility] Comment on above: Performed By: #### C VDTBH #### [facility] [address] [place] [address] Dr. Suzie Brooks EGFR-NON AF ANGOLAN >60 Normal >=60 [facility] Comment on above: Performed By: #### C VDTBH #### [facility] [address] [address] [address] Suzie Brooks Glucose [Mass/Vol] 94 mg/dL Normal 74-106 [facility] Comment on above: Performed By: #### C VDTBH #### [facility] [address] [place] [address] Dr. Suzie Brooks Potassium [Moles/Vol] 4.5 mmol/L Normal 3.4-5.0 [facility] Comment on above: Performed By: #### C VDTBH #### [facility] [address] [place] [address] Dr. Suzie Brooks Sodium [Moles/Vol] 139 mmol/L Normal 137-145 [facility] Comment on above: Performed By: #### C VDTBH #### [facility] [address] [address] [address] Suzie Brooks Urea nitrogen [Mass/Vol] 12.0 mg/dL Normal 7.0-18.0 [facility] Comment on above: Performed By: #### C VDTBH #### [facility] [address] [place] [address] Dr. Suzie Brooks Urea nitrogen/Creatinine [Mass ratio] 12.1 mg/mg Normal [facility] Comment on above: Performed By: #### C VDTBH #### [facility] [address] [place] [address] Dr. Suzie Brooks PROTIMEon 10-26-2021 INR Coag (PPP) [Relative time] 0.99 {INR} Normal [facility] Comment on above: Performed By: #### C VDTBH #### [facility] [address] [place] [address] Dr. Suzie Brooks INR GUIDELINES SEE BELOW Normal [facility] Comment on above: Result Comment: TOMMY RED INR: 2.0 - 3.0 CONDITIONS NOT LISTED BELOW 2.5 - 3.5 FOR PROSTHETIC HEART VALVE REPLACEMENT 2.5 - 3.5 RECURRENT THROMBOSIS Performed By: #### C VDTBH #### [facility] [address] [place] [address] Dr. Suzie Brooks PT Coag (PPP) [Time] 10.7 s Normal 9.0-11.6 [facility] Comment on above: Performed By: #### C VDTBH #### [facility] [address] [place] [address] Dr. Suzie Brooks PTTon 10-26-2021 aPTT Coag (Bld) [Time] 26.4 s Normal 22.3-36.2 [facility] Comment on above: Performed By: #### C VDTBH #### [facility] [address] [place] [address] Dr. Suzie Brooks XR KUB 1 VIEWon [...] by: RAFAEL GRAVES Date: 2021-10-17 13:26 Normal [facility] Vital Signs Date Time Vital Sign Value Performing Clinician Dario mcdonough 04-11-2023 11:55-0400 Blood Pressure Location Mikikimberly ZENG [facility] 04-11-2023 11:55-0400 Diastolic blood pressure 76 mm[Hg] Miki ZENG [facility] 04-11-2023 11:55-0400 Heart rate 80 /min Miki ZENG [facility] 04-11-2023 11:55-0400 Respiratory rate 16 /min Miki ZENG [facility] 04-11-2023 11:55-0400 Systolic blood pressure 134 mm[Hg] Miki ZENG [facility] 02-25-2022 14:20-0400 Blood Pressure Location Miki ZENG [facility] 02-25-2022 14:20-0400 Diastolic blood pressure 100 mm[Hg] Miki ZENG [facility] 02-25-2022 14:20-0400 Heart rate 86 /min Miki ZENG [facility] 02-25-2022 14:20-0400 Respiratory rate 16 /min Miki ZENG [facility] 02-25-2022 14:20-0400 Systolic blood pressure 155 mm[Hg] Miki ZENG [facility] Encounters Encounter Date Encounter Type Care Provider Facility Start: 04-16-2024 ambulatory Miki Sims ty:[facility] Start: 04-11-2023 End: 04-12-2023 ambulatory Miki ZENG Facility:[facility] [place] Start: 04-11-2023 End: 04-11-2023 Patient encounter procedure Miki ZENG [facility] Start: 08-19-2022 End: 08-20-2022 ambulatory Miki ZENG Facility:[facility] [place] Start: 08-14-[address] MARIELLE LERMA Facility :[facility] Start: 08-13-[address] MARIELLE LERMA Facility :[facility] Start: 07-26-2022 End: 07-27-[address] MARIELLE LERMA Facility:[facility] Start: 07-18-2022 End: 07-19-[address] MIKI ZENG Facility:[facility] Start: 05-15-2022 End: 05-16-[address] MARIELLE LERMA Facility:[facility] Start: 02-25-2022 End: 02-25-2022 Patient encounter procedure Miki ZENG [facility] Start: 02-18-2022 End: 02-18-[address] [...] encounter procedure MD Marielle Lerma Work Phone: [facility] Start: 11-12-2021 End: 11-13-[address] MIKI ZENG Facility:[facility] Start: 11-06-2021 End: 11-07-[address] MARIELLE LERMA Facility:[facility] Start: 11-05-2021 End: 11-05-[address] MARIELLE LERMA Facility:[facility] Start: 11-01-2021 End: 11-01-[address] MIKI ZENG Facility:[facility] Start: 10-31-2021 Encounter for preprocedural cardiovascular examination DR MIKI ZENG [facility] Start: 10-30-[address] MIKI ZENG [facility] ity:[facility] Start: 10-26-2021 End: 10-27-[address] MIKI ZENG Facility:[facility] Start: 10-26-2021 End: 10-27-2021 Encounter for preprocedural cardiovascular examination DR MIKI ZENG Facility:[facility] Start: 10-17-2021 End: 10-18-[address] MIKI ZENG Facility:[facility] Procedures Date Procedure Procedure Detail Performing Clinician Start: 05-15-[address] JHONATAN ZENG Comment on above: Performed By: #### U DINA, LIPID, TSH, BNP, CMP, T7 #### [facility] [address] [place] [address] Dr. Suzie Brooks Start: 11-21-2021 Cystoscopy Miki [...] Provider Fa cili 05-31-2022 SARS-CoV-2 (COVID-19 ) [id number] Miki ZENG [facility] Comment on above: Result Comment: 2022: [id number] 12-22-2021 SARS-CoV-2 (COVID-19 ) mRNA-1273 vaccine Miki ZENG [facility] 06-05-2021 SARS-CoV-2 (COVID-19 ) mRNA-1273 vaccine Miki ZENG [facility] 05-29-2021 influenza virus vaccine, unspecified formulation Miki ZENG [facility] 05-15-2021 influenza virus vaccine, unspecified formulation Miki ZENG [facility] 11-09-2020 SARS-CoV-2 (COVID-19 ) mRNA-1273 vaccine Miki ZENG [facility] 11-01-2020 SARS-CoV-2 (COVID-19 ) mRNA-1273 vaccine Miki ZENG [facility] 10-09-2020 SARS-CoV-2 (COVID-19 ) mRNA-1273 vaccine Miki ZENG [facility] 10-05-2020 SARS-CoV-2 (COVID-19 ) [id number] vaccine Miki [employer] [facility] 05-17-2020 influenza virus vaccine, unspecified formulation Miki [employer] [facility] 06-24-2019 tetanus toxoid, redu roberto carlos diphtheria toxoid, and acellular pertussis vaccine, adsorbed [employer] [facility] 05-25-2019 influenza virus vaccine, unspecified formulation Miki [employer] [facility] 05-22-2017 influenza virus vaccine, unspecified formulation Miki [employer] [facility] 05-22-2017 pneumococcal conjuga te vaccine, 13 valent [employer] [facility] 05-30-2016 influenza, unspecifi ed formulation Miki [employer] [facility] 11-01-2013 zoster vaccine, live Miki ZENG [facility] 12-18-2005 hepatitis A vaccine, adult dosage [employer] [facility] 10-18-2005 hepatitis B vaccine, pediatric or pediatric/adolescent dosage [employer] [facility] 10-18-2005 tetanus and diphther ia toxoids, adsorbed, preservative free, for adult use (2 Lf of tetanus toxoid and 2 Lf of diphtheria toxoid) [facility] [facility] 07[facility]26[facility]2005 hepatitis B vaccine, pediatric or pediatric/adolescent dosage Miki ZENG [facility] 06-20-2005 hepatitis A vaccine, adult dosage Miki ZENG [facility] 06-20-2005 hepatitis B vaccine, pediatric or pediatric/adolescent dosage Miki ZENG [facility] Payers Date Payer Category Payer Medicare [id number] Private Health Insurance [id number] 1952 Unknown [id number] 2.16.84 0.1.900828.3.579.2.593 1952 Unknown [id number] 2.16.84 0.1.761365.3.579.2.593 1952 Unknown [id number] 2.16.84 0.1.744932.3.579.2.593 1952 Unknown [id number] 2.16.84 0.1.154108.3.579.2.593 1952 Unknown [id number] 2.16.84 0.1.973483.3.579.2.593 1952 Unknown [id number] 2.16.84 0.1.257905.3.579.2.593 1952 Unknown [id number] 2.16.84 0.1.857396.3.579.2.593 1952 Unknown [id number] 2.16.84 0.1.494869.3.579.2.593 1952 Unknown [id number] 2.16.84 0.1.095150.3.579.2.593 1952 Unknown [id number] 2.16.84 0.1.264179.3.579.2.593 1952 Unknown [id number] 2.16.84 0.1.291251.3.579.2.593 1952 Unknown [id number] 2.16.84 0.1.972258.3.579.2.593 1952 Unknown [id number] 2.16.84 0.1.018622.3.579.2.593 1952 Unknown [id number] 2.16.84 0.1.235582.3.579.2.593 1952 Unknown [id number] 2.16.84 0.1.347775.3.579.2.593 1952 Unknown [id number] 2.16.84 0.1.493225.3.579.2.593 1952 Unknown [id number] 2.16.84 0.1.200013.3.579.2.593 1952 Unknown [id number] 2.16.84 0.1.585601.3.579.2.593 1952 Unknown [id number] 2.16.8 40.1.253778.3.579.2.727 1952 Unknown [id number] 2.16.8 40.1.331467.3.579.2.727 1952 Unknown [id number] 2.16.8 40.1.299288.3.579.2.727 Self-pay Self Pay [id number] Social History Date Type Detail Facility Start: 10-19-2019 End: 04-11-2023 Tobacco smoking status NHIS Ex-smoker (finding) [facility] Start: 1950 Sex Assigned At Male [facility] Tobacco smoking status Never [facility] Sex Assigned At Male [facility] Functional Status Date Assessment Result Facility 04-11-2023 Functional Status N/A [facility] 02-25-2022 Functional Status N/A [facility] Hospital Discharge instructions 04-11-2023 Note Date [...] include: ?8 oz (237 mL) of milk, ksjgkon-jdfkopbdectv-wudkv milk, and calcium-fortifiedfruit juice. Calcium-fortified means that [...] ?Spinach (cooked), rhubarb, beets, sweet potatoes, and [place] chard. ?Peanuts. ?Potato chips, gibraltarian fries, and baked potatoes with skin on. ?Nuts and nut products. ?Chocolate. If you regularly take a diuretic medicine, make sure to eat at least 1 or 2 servings of fruits or vegetables that are high in potassium each day. These include: ?Avocado. ?Banana. ?Cygnet, prune, carrot, or tomato juice. ?Baked potato. [...] magnesium, fish oil, or vitamin B6. Take jlnj-dly-gahfnse and prescription medicines only as told by [...] Casseroles. Pizza. Lasagna. Frozen meals. Potato chips. Greek fries. The items listed above may not [...] provider. Document Revised: 04/08/2022 Document Reviewed: 04/08/2022 [employer] Patient Education 2022 [employer]. Follow Up Care 08/19/2022 10:39:03 With:THOR BATISTA, Miki Cedeño, URL Address: [facility] [address], [place] [address]- When:Within 1 Year(s) [facility] Hospital Discharge instructions 02-25-2022 Note Date [...] 07/28/2006 Document Revised: 04/16/2019 Document Reviewed: 06/27/2017 [employer] Patient Education 2020 [employer]. 02/25/2022 15:28:39 Kidney Stones, Lbtt-wp-Kaid Kidney Stones Kidney stones are rock-like masses [...] Follow these instructions at home: Medicines Take eefu-nwq-zkfgxgi and prescription medicines only as told by [...] 01/13/2009 Document Revised: 12/14/2019 Document Reviewed: 12/14/2019 [employer] Patient Education 2020 [employer]. Follow Up Care 11/21/2021 12:48:10 With:THOR BATISTA, Miki Cedeño, URL Address: [facility] [address] , [place] [address]- [phone] When:Within 4 Month(s) Comments:4 mo fu with IVP [facility] Evaluation + Plan note 02-25-2022 Note Date & Type Note Facility 02-25-2022 Evaluation + Plan note Diagnostic Tests PendingPSA Total 02/25/22Creatinine 02/25/22 [facility] Evaluation + Plan note Note Date & Type Note Facility Evaluation + Plan note Future Appointments Appointment Date:04/16/2024 11:00:00 AM Scheduled Provider:THOR BATISTA, Miki Cedeño Location:[facility] Appointment Type:URO Office Visit [facility] Evaluation note Note Date & Type Note Facility Evaluation note No assessment information availa [facility] Work Phone: Hospital course Narrative Note Date & Type Note Facility Hospital course Narrative No data available for this section [facility] Progress note Note Date & Type Note Facility Progress note No data available for this section [facility] Chief Complaint and Reason for Visit [...] section and content) DATE CREATED AUTHOR 11/22/2021 [facility] DATE CREATED AUTHOR AUTHOR'S ORGANIZ ATION 08/13/2022 [facility]zahra DATE CREATED AUTHOR AUTHOR'S ORGANIZ ATION 04/12/2023 [facility] FOR RECORDS PERTAINING TO PATIENTS WHO ARE [...] BE BASED ON THE PRIMARY CLINICAL RECORDS. [employer] provides no warranty or guarantee of the accuracy or completeness of information in this document.
== END 2023-09-24 08:45 | disposition home or self-care (01) ==
LOC: NM 08:44
PROVIDERS: PCP Family Medicine; Visit Provider Family Medicine
DX: R07.89 Other chest pain (principal)
CPT/HCPCS: 78452; A9500

== ENCOUNTER 2023-09-30 08:43 | Outpatient (OUT) | payer MEDICARE, OTHER, SELFPAY ==
--- OUTSIDE RECORDS SUMMARY | 2023-09-30 08:52 | XMS_ITS | CCD ---
Author Name Unknown Address [address] [place] [address] Organization [facility] Care Team Providers Care Radiochemical Technician Name Role Phone MD Marielle Lerma Primary Care Provider [phone] MD Miki Zeng Attending Provider Marielle Lerma Primary Care Physician [phone] DR MIKI ZENG Admitting Unavailable THOR, DR SWEET Attending Unavailable MAYCOY, DR PALOMARES Primary Care Unavailable THOR, DR SWEET Consulting Unavailable ZIEBDMITRIY, DR BEHZAD Cedeño Consulting Unavailable HOY, DR PALOMARES Primary Care Unavailable HOY, DR PALOMARES Admitting Unavailable HOY, DR PALOMARES Attending Unavailable HOY, DR PALOMARES Consulting Unavailable NEIDA, DR BEHZAD Cdeeño Consulting Unavailable LATONYA AMADOR Consulting Unavailable THOR, [...] Medication Allergies] Propensity to adverse reactions (disorder) [facility] Repository Medications Current Medications Medication Drug [...] mouth every four to six hours Hydrocodone-Acetaminophen ([place]) 5-325 mg tablet Active 1 TAB PO EVERY 4-6 HOURS 40 7 September 28, 2019 1:45pm allopurinol 300 mg oral tablet (2 sources) Xanthine Oxidase Inhibitor Start: 03-10-2023 take 1 tablet by mouth once daily allopurinol 300 mg Tab 300 mg = 1 tab(s), Oral, Daily, # 90 tab(s), Refills(s) 3, Pharmacy: [facility]/pharmacy #[id number], 180, cm, 08/19/22 9:50:00 EST, Height/Length Dosing, 136.2, kg, 08/19/22 9:50:00 EST, Weight Dosing Start Date: 03/10/23 Status: Ordered Start: 02-25-2022 allopurinol 30 0 mg Tab 150 mg = 0.5 tab(s), Oral, Daily, # 30 tab(s), Refills(s) 11, Pharmacy: [id number], 180, cm, 02/25/22 14:22:00 EDT, [...] Daily, # 90 cap(s), Refills(s) 3, Pharmacy: [facility]/pharmacy #[id number], 180, cm, 08/19/22 9:50:00 EST, Height/Length Dosing, 136.2, kg, 08/19/22 9:50:00 EST, Weight Dosing Start Date: 08/19/22 Status: Ordered Start: 02-25-2022 take 1 capsule by [facility] once daily hydrochlorothiazide 12.5 mg Cap 12.5 mg = 1 cap(s), Oral, Daily, # 30 cap(s), Refills(s) 6, Pharmacy: [facility] #72, 180, cm, 02/25/22 14:22:00 EDT, [...] PO Twice daily January 02, 2018 9:35am Ygjqdknt-Vzm-Vn-Lycopen-Lute in (Centrum Silver) 0.4-300-250 mg-mcg-mcg Tablet (1 source) Start: 09-02-2019 take 1 tablet by mouth once daily Dskmeaje-Hns-Yk-Lycopen-Lutein (Centrum Silver) 0.4-300-250 mg-mcg-mcg Tablet Active 1 [...] tab(s), Oral, BID, 60 tab(s), Refill(s) 11, [facility]pharmacy #[id number], 180, cm, 04/11/23 11:56:00 EDT, [...] BID, # 90 tab(s), Refills(s) 3, Pharmacy: [facility]/pharmacy #[id number], 180, cm, 08/19/22 9:50:00 EST, Height/Length Dosing, 136.2, kg, 08/19/22 9:50:00 EST, Weight Dosing Start Date: 08/19/22 Status: Ordered solifenacin succinate 10 mg oral tablet (2 sources) Cholinergic Muscarinic Antagonist Start: 04-08-2022 End: 12-23-2024 take 1 tablet by mouth once daily Vesicare 10 mg Tab 10 mg = 1 tab(s), Oral, Daily, X 90 day(s), # 90 tab(s), Refills(s) 11, Pharmacy: [facility] #72, 180, cm, 02/25/22 14:22:00 EDT, Height/Length Dosing, 135, kg, 02/25/22 14:22:00 EDT, Weight Dosing Start Date: 04/08/22 Stop Date: 12/23/24 Status: Ordered Start: 02-25-2022 take 1 tablet by isa once daily Vesicare 10 mg Tab 10 mg = 1 tab(s), Oral, Daily, # 30 tab(s), Refills(s) 11, Pharmacy: [facility]/pharmacy #[id number], 180, cm, 02/25/22 14:22:00 EDT, Height/Length Dosing, 135, kg, 02/25/22 14:22:00 EDT, Weight Dosing Start Date: 02/25/22 Status: Ordered tadalafil 20 mg oral tablet (3 sources) Phosphodiesterase 5 Inhibitor Start: 10-23-2021 take 1 tablet by mouth once daily Cialis 20 mg Tab 20 mg = 1 tab(s), Oral, Daily, # 30 tab(s), Refills(s) 6, Pharmacy: [facility]/pharmacy #[id number], 180, cm, 10/22/21 14:56:00 EDT, [...] Daily, # 90 cap(s), Refills(s) 3, Pharmacy: [facility]/pharmacy #[id number], 180, cm, 04/11/23 11:56:00 EDT, [...] Coronary atherosclerosis; Translations: [Atherosclerotic heart disease of [place] coronary artery without angina pectoris] Onset: 11-05-2021 [...] Onset: 08-01-2022 Chronic Other 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) detention (current) use of aspirin; Translations: [[facility] CURRENT USE OF ASPIRIN] Onset: 08-01-2022 Episodic Other 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) 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 8 oz (237 mL) of milk, fugmgoc-kvkgloijmifi-bezn y milk, and calcium-fortifiedfruit juice. Calcium-fortified means [...] Spinach (cooked), rhubarb, beets, sweet potatoes, and Azerbaijani chard. ? Peanuts. ? Potato chips, mexican fries, and baked potatoes with skin on. ? Nuts and nut products. ? Chocolate. ? If you regularly take a diuretic medicine, make sure to eat at least 1 or 2 servings of fruits or vegetables that are high in potassium each day. These include: ? Avocado. ? Banana. ? [place], prune, carrot, or tomato juice. ? Baked [...] fish oil, or vitamin B6. ? Take bmqs-qcy-yegghlh and prescription medicines only as told by your health care provider. These include supplements. What foods should I limit? Limit your in (more content not included)... Normal [facility] Urology Office/Clinic Noteon 04-11-2023 Urology Office/Clinic [...] [facility] [address], [place] [address]- Additional Instructions: Patient Education Dietary Guidelines to Help Prevent Kidney Stone (more content not included)... Normal [facility] Comment on above: Result Comment: Elec tronically Signed By: Miki ZENG MD\.br\Date and Time Signed: 04/11/23 12:49 EDT\.br\Electronically Co-Signed By: Sherice Cloud\.br\Date and Time Co-Signed: 04/11/23 12:48 EDT RAD - Ultrasound Reporton RAD - Ultrasound Report [id number]:12 7 [facility] RAD - Ultrasound Report [id number]:12 7 [facility] Screenson 08-20-2022 Screens [id number]#1.00CD:12 7 [facility] Ambulatory Visit Summaryon 0 08-19-2022 Ambulatory Visit Summary TOM APARICIO :1950 Visit Date:08/19/2022 Ambulatory Visit Instructions Your Diagnosis BPH with urinary obstruction Kidney stone Nocturia Impotence Other obstructive and reflux uropathy Tests Performed Urnls Dip Stick Auto w/o Microscopy POC 23686 US Renal -- Results Pending -- Please [...] BATISTA, Miki Cedeño Where: [facility] Patient Educationon 08-19-19 Patient Education [...] Follow these instructions at home: ? Take kcrj-smy-wxcbpkl and prescription medicines only as told by [...] You d (more content not included)... Normal [facility] Office/Clinic Noteon 08-19-2022 Urology Office/Clinic [...] [facility] [address], [place] [address]- [phone] Additional Instructions: w/ renal US Patient Education [...] Medications acetaminophen-h (more content not included)... Normal [facility] Comment on above: Result Comment: Elec tronically Signed By: Miki ZENG MD\.br\Date and Time Signed: 08/19/22 10:44 EST\.br\Electronically Co-Signed By: Brenda Lopez\.br\Date and Time Co-Signed: 08/19/22 10:38 EST CBC AUTO DIFFon 07-27-2022 BASO # 0.1 103/ul Normal 0.0-0.1 [facility] Comment on above: Performed By: #### U DINA, LIPID, TSH, BNP, CMP, T7 #### [facility] [address] [place] [address] Dr. Suzie Brooks Basophils/100 WBC (Bld) 0.5 % Normal 0.2-2.0 [facility] Comment on above: Performed By: #### U DINA, LIPID, TSH, BNP, CMP, T7 #### [facility] [address] [place] [address] Dr. Suzie Brooks EO # 0.4 103/ul Normal 0.0-0.7 [facility] Comment on above: Performed By: #### U DINA, LIPID, TSH, BNP, CMP, T7 #### [facility] [address] [place] [address] Dr. Suzie Brooks Eosinophils/100 WBC (Bld) 3.3 % Normal 0.9-7.0 [facility] Comment on above: Performed By: #### U DINA, LIPID, TSH, BNP, CMP, T7 #### [facility] [address] [place] [address] Dr. Suzie Brooks Erythrocyte distribution width (RBC) [Ratio] 14.6 % Normal 11.0-15.0 [facility] Comment on above: Performed By: #### U DINA, LIPID, TSH, BNP, CMP, T7 #### [facility] [address] [place] [address] Dr. Suzie Brooks Hematocrit (Bld) [Volume fraction] 42.0 % Normal 42.0-54.0 [facility] Comment on above: Performed By: #### U DINA, LIPID, TSH, BNP, CMP, T7 #### [facility] [address] [place] [address] Dr. Suzie Brooks Hemoglobin (Bld) [Mass/Vol] 14.1 g/dL Normal 14.0-18.0 [facility] Comment on above: Performed By: #### U DINA, LIPID, TSH, BNP, CMP, T7 #### [facility] [address] [place] [address] Dr. Suzie Brooks IG # 0.03 10e3/ul Normal 0.00-0.03 [facility] Comment on above: Performed By: #### U DINA, LIPID, TSH, BNP, CMP, T7 #### [facility] [address] [place] [address] Dr. Suzie Brooks IG % 0.3 % Normal 0.0-0.5 [facility] Comment on above: Performed By: #### U DINA, LIPID, TSH, BNP, CMP, T7 #### [facility] [address] [place] [address] Dr. Suzie Brooks LYMPH # 3.1 103/ul Normal 1.2-3.8 [facility] Comment on above: Performed By: #### U DINA, LIPID, TSH, BNP, CMP, T7 #### [facility] [address] [place] [address] Dr. Suzie Brooks Lymphocytes/100 WBC (Bld) 28.2 % Normal 20.5-60.0 [facility] Comment on above: Performed By: #### U DINA, LIPID, TSH, BNP, CMP, T7 #### [facility] [address] [place] [address] Dr. Suzie Brooks MANUAL DIFF REQ NO Normal [facility] Comment on above: Performed By: #### U DINA, LIPID, TSH, BNP, CMP, T7 #### [facility] [address] [place] [address] Dr. Suzie Brooks MCH (RBC) [Entitic mass] 28.5 pg Normal 25.9-34.0 [facility] Comment on above: Performed By: #### U DINA, LIPID, TSH, BNP, CMP, T7 #### [facility] [address] [place] [address] Dr. Suzie Brooks MCHC (RBC) [Mass/Vol] 33.6 g/dL Normal 29.9-35.2 [facility] Comment on above: Performed By: #### U DINA, LIPID, TSH, BNP, CMP, T7 #### [facility] [address] [place] [address] Dr. Suzie Brooks MCV (RBC) [Entitic vol] 85.0 fL Normal 80.0-94.0 [facility] Comment on above: Performed By: #### U IDNA, LIPID, TSH, BNP, CMP, T7 #### [facility] [address] [place] [address] Dr. Suzie Brooks MONO # 0.8 103/ul Normal 0.3-0.8 [facility] Comment on above: Performed By: #### U DINA, LIPID, TSH, BNP, CMP, T7 #### [facility] [address] [place] [address] Dr. Suzie Brooks Monocytes/100 WBC (Bld) 7.2 % Normal 1.7-12.0 [facility] Comment on above: Performed By: #### U DINA, LIPID, TSH, BNP, CMP, T7 #### [facility] [address] [place] [address] Dr. Suzie Brooks NEUT # 6.7 103/ul Critically high 1.4-6.5 [facility] Comment on above: Performed By: #### U DINA, LIPID, TSH, BNP, CMP, T7 #### [facility] [address] [place] [address] Dr. Suzie Brooks Neutrophils/100 WBC (Bld) 60.5 % Normal 43.0-75.0 [facility] Comment on above: Performed By: #### U DINA, LIPID, TSH, BNP, CMP, T7 #### [facility] [address] [place] [address] Dr. Suzie Brooks Platelet mean volume (Bld) [Entitic vol] 9.6 fL Normal 9.5-13.5 [facility] Comment on above: Performed By: #### U DINA, LIPID, TSH, BNP, CMP, T7 #### [facility] [address] [place] [address] Dr. Suzie Brooks PLT 266 103/ul Normal 150-450 [facility] Comment on above: Performed By: #### U DINA, LIPID, TSH, BNP, CMP, T7 #### [facility] [address] [place] [address] Dr. Suzie Brooks RBC 4.94 106/ul Normal 4.70-6.10 [facility] Comment on above: Performed By: #### U DINA, LIPID, TSH, BNP, CMP, T7 #### [facility] [address] [address] [address] Suzie Brooks WBC 11.1 103/ul Critically high 4.0-11.0 [facility] Comment on above: Performed By: #### U DINA, LIPID, TSH, BNP, CMP, T7 #### [facility] [address] [address] [address] Suzie Brooks PROF 14(COMP METB)on 022 Albumin [Mass/Vol] 3.2 g/dL Critically low 3.4-5.0 [facility] Comment on above: Performed By: #### C VDTBH #### [facility] [address] [place] [address] Dr. Suzie Brooks Albumin/Globulin [Mass ratio] 0.9 {ratio} Normal [facility] Comment on above: Performed By: #### C VDTBH #### [facility] [address] [place] [address] Dr. Suzie Brooks ALP [Catalytic activity/Vol] 60 U/L Normal 46-116 [facility] Comment on above: Performed By: #### C VDTBH #### [facility] [address] [place] [address] Dr. Suzie Brooks ALT [Catalytic activity/Vol] 27 U/L Normal 16-63 [facility] Comment on above: Performed By: #### C VDTBH #### [facility] [address] [place] [address] Dr. Suzie Brooks Anion gap [Moles/Vol] 10.4 mmol/L Normal [facility] Comment on above: Performed By: #### C VDTBH #### [facility] [address] [place] [address] Dr. Suzie Brooks AST [Catalytic activity/Vol] 23 U/L Normal 15-37 [facility] Comment on above: Performed By: #### C VDTBH #### [facility] [address] [place] [address] Dr. Suzie Brooks Bilirubin [Mass/Vol] 0.4 mg/dL Normal 0.2-1.0 [facility] Comment on above: Performed By: #### C VDTBH #### [facility] [address] [address] [address] Suzie Brooks Calcium [Mass/Vol] 8.4 mg/dL Critically low 8.5-10.1 [facility] Comment on above: Performed By: #### C VDTBH #### [facility] [address] [place] [address] Dr. Suzie Brooks Chloride [Moles/Vol] 104 mmol/L Normal 98-107 [facility] Comment on above: Performed By: #### C VDTBH #### [facility] [address] [address] [address] Suzie Brooks CO2 [Moles/Vol] 26.1 mmol/L Normal 21.0-32.0 [facility] Comment on above: Performed By: #### C VDTBH #### [facility] [address] [place] [address] Dr. Suzie Brooks Creatinine [Mass/Vol] 0.90 mg/dL Normal 0.70-1.30 [facility] Comment on above: Performed By: #### C VDTBH #### [facility] [address] [place] [address] Dr. Suzie Brooks EGFR-AF LIBERIAN >60 Normal >=60 [facility] Comment on above: Performed By: #### C VDTBH #### [facility] [address] [place] [address] Dr. Suzie Brooks EGFR-NON AF LIBERIAN >60 Normal >=60 [facility] Comment on above: Performed By: #### C VDTBH #### [facility] [address] [place] [address] Dr. Suzie Brooks Globulin (S) [Mass/Vol] 3.4 g/dL Normal [facility] Comment on above: Performed By: #### C VDTBH #### [facility] [address] [place] [address] Dr. Suzie Brooks Glucose [Mass/Vol] 111 mg/dL Critically high 74-106 [facility] Comment on above: Performed By: #### C VDTBH #### [facility] [address] [address] [address] Suzie Brooks Potassium [Moles/Vol] 3.5 mmol/L Normal 3.5-5.1 [facility] Comment on above: Performed By: #### C VDTBH #### [facility] [address] [place] [address] Dr. Suzie Brooks Protein [Mass/Vol] 6.6 g/dL Normal 6.4-8.2 [facility] Comment on above: Performed By: #### C VDTBH #### [facility] [address] [place] [address] Dr. Suzie Brooks Sodium [Moles/Vol] 137 mmol/L Normal 136-145 [facility] Comment on above: Performed By: #### C VDTBH #### [facility] [address] [place] [address] Dr. Suzie Brooks Urea nitrogen [Mass/Vol] 13.0 mg/dL Normal 7.0-18.0 [facility] Comment on above: Performed By: #### C VDTBH #### [facility] [address] [place] [address] Dr. Suzie Brooks Urea nitrogen/Creatinine [Mass ratio] 14.4 mg/mg Normal [facility] Comment on above: Performed By: #### C VDTBH #### [facility] [address] [place] [address] Dr. Suzie Brooks BNPon 07-26-2022 Natriuretic peptide B (Bld) [Mass/Vol] 118.0 pg/mL Normal <=900.0 [facility] Comment on above: Performed By: #### U DINA, LIPID, TSH, BNP, CMP, T7 #### [facility] [address] [place] [address] Dr. Suzie Brooks CARDIAC MJ 3-6on 2 CK [Catalytic activity/Vol] 240 U/L Normal 39-308 [facility] Comment on above: Performed By: #### U DINA, LIPID, TSH, BNP, CMP, T7 #### [facility] [address] [place], [place] [id number] Dr. Suzie Brooks CK.MB [Mass/Vol] 3.43 ng/mL Normal <=3.60 [facility] Comment on above: Performed By: #### U DINA, LIPID, TSH, BNP, CMP, T7 #### [facility] [address] [address] [address] Suzie Brooks HSTROP 8.6 pg/mL Normal 4.0-76.1 [facility] Comment on above: Result Comment: CUT- OFF POINTS HAVE BEEN ESTABLISHED BASED ON THE FOURTH UNIVERSAL DEFINITIONS OF MYOCARDIAL INFARCTION. THE UPPER REFERENCE LIMIT (URL) OF TROPONIN, DEFINED THE 99TH PERCENTILE OF cTnI DISTRIBUTION IN A REFERENCE POPULATION, HAS BEEN CONFIRMED THE DECISION THRESHOLD FOR NE DIAGNOSIS. Performed By: #### U DINA, LIPID, TSH, BNP, CMP, T7 #### [facility] [address] [place] [address] Dr. Suzie Brooks CK [Catalytic activity/Vol] 239 U/L Normal 39-308 [facility] Comment on above: Performed By: #### M AG24 #### [facility] [address] [place] [address] Dr. Suzie Brooks CK.MB [Mass/Vol] 2.93 ng/mL Normal <=3.60 [facility] Comment on above: Performed By: #### M AG24 #### [facility] [address] [place] [address] Dr. Suzie Brooks HSTROP 10.4 pg/mL Normal 4.0-76.1 [facility] Comment on above: Result Comment: CUT- OFF POINTS HAVE BEEN ESTABLISHED BASED ON THE FOURTH UNIVERSAL DEFINITIONS OF MYOCARDIAL INFARCTION. THE UPPER REFERENCE LIMIT (URL) OF TROPONIN, DEFINED THE 99TH PERCENTILE OF cTnI DISTRIBUTION IN A REFERENCE POPULATION, HAS BEEN CONFIRMED THE DECISION THRESHOLD FOR NE DIAGNOSIS. Performed By: #### M AG24 #### [facility] [address] [place] [address] Dr. Suzie Brooks CARDIAC MJ ADMITon 07-26-2 022 CK [Catalytic activity/Vol] 234 U/L Normal 39-308 [facility] Comment on above: Performed By: #### O X24HR #### [facility] [address] [place] [address] Dr. Suzie Brooks CK.MB [Mass/Vol] 3.37 ng/mL Normal <=3.60 [facility] Comment on above: Performed By: #### O X24HR #### [facility] [address] [place] [address] Dr. Suzie Brooks HSTROP 9.0 pg/mL Normal 4.0-76.1 [facility] Comment on above: Result Comment: CUT- OFF POINTS HAVE BEEN ESTABLISHED BASED ON THE FOURTH UNIVERSAL DEFINITIONS OF MYOCARDIAL INFARCTION. THE UPPER REFERENCE LIMIT (URL) OF TROPONIN, DEFINED THE 99TH PERCENTILE OF cTnI DISTRIBUTION IN A REFERENCE POPULATION, HAS BEEN CONFIRMED THE DECISION THRESHOLD FOR NE DIAGNOSIS. Performed By: #### O X24HR #### [facility] [address] [place] [address] Dr. Suzie Brooks EDIE 85 ng/mL Normal 16-96 [facility] Comment on above: Performed By: #### O X24HR #### [facility] [address] [place] [address] Dr. Suzie Brooks CBC AUTO DIFFon 07-26-2022 BASO # 0.1 103/ul Normal 0.0-0.1 [facility] Comment on above: Performed By: #### U DINA, LIPID, TSH, BNP, CMP, T7 #### [facility] [address] [place] [address] Dr. Suzie Brooks Basophils/100 WBC (Bld) 0.4 % Normal 0.2-2.0 [facility] Comment on above: Performed By: #### U DINA, LIPID, TSH, BNP, CMP, T7 #### [facility] [address] [place] [address] Dr. Suzie Brooks EO # 0.3 103/ul Normal 0.0-0.7 [facility] Comment on above: Performed By: #### U DINA, LIPID, TSH, BNP, CMP, T7 #### [facility] [address] [place] [address] Dr. Suzie Brooks Eosinophils/100 WBC (Bld) 2.5 % Normal 0.9-7.0 [facility] Comment on above: Performed By: #### U DINA, LIPID, TSH, BNP, CMP, T7 #### [facility] [address] [place] [address] Dr. Suzie Brooks Erythrocyte distribution width (RBC) [Ratio] 14.4 % Normal 11.0-15.0 [facility] Comment on above: Performed By: #### U DINA, LIPID, TSH, BNP, CMP, T7 #### [facility] [address] [place] [address] Dr. Suzie Brooks Hematocrit (Bld) [Volume fraction] 46.0 % Normal 42.0-54.0 [facility] Comment on above: Performed By: #### U DINA, LIPID, TSH, BNP, CMP, T7 #### [facility] [address] [place] [address] Dr. Suzie Brooks Hemoglobin (Bld) [Mass/Vol] 15.6 g/dL Normal 14.0-18.0 [facility] Comment on above: Performed By: #### U DINA, LIPID, TSH, BNP, CMP, T7 #### [facility] [address] [place] [address] Dr. Suzie Brooks IG # 0.07 10e3/ul Critically high 0.00-0.03 [facility] Comment on above: Performed By: #### U DINA, LIPID, TSH, BNP, CMP, T7 #### [facility] [address] [place] [address] Dr. Suzie Brooks IG % 0.6 % Critically high 0.0-0.5 [facility] Comment on above: Performed By: #### U DINA, LIPID, TSH, BNP, CMP, T7 #### [facility] [address] [place] [address] Dr. Suzie Brooks LYMPH # 2.9 103/ul Normal 1.2-3.8 [facility] Comment on above: Performed By: #### U DINA, LIPID, TSH, BNP, CMP, T7 #### [facility] [address] [place] [address] Dr. Suzie Brooks Lymphocytes/100 WBC (Bld) 24.2 % Normal 20.5-60.0 [facility] Comment on above: Performed By: #### U DINA, LIPID, TSH, BNP, CMP, T7 #### [facility] [address] [place] [address] Dr. Suzie Brooks MANUAL DIFF REQ NO Normal [facility] Comment on above: Performed By: #### U DINA, LIPID, TSH, BNP, CMP, T7 #### [facility] [address] [place] [address] Dr. Suzie Brooks MCH (RBC) [Entitic mass] 28.6 pg Normal 25.9-34.0 [facility] Comment on above: Performed By: #### U DINA, LIPID, TSH, BNP, CMP, T7 #### [facility] [address] [place] [address] Dr. Suzie Brooks MCHC (RBC) [Mass/Vol] 33.9 g/dL Normal 29.9-35.2 [facility] Comment on above: Performed By: #### U DINA, LIPID, TSH, BNP, CMP, T7 #### [facility] [address] [place] [address] Dr. Suzie Brooks MCV (RBC) [Entitic vol] 84.4 fL Normal 80.0-94.0 [facility] Comment on above: Performed By: #### U DINA, LIPID, TSH, BNP, CMP, T7 #### [facility] [address] [place] [address] Dr. Suzie Brooks MONO # 0.8 103/ul Normal 0.3-0.8 [facility] Comment on above: Performed By: #### U DINA, LIPID, TSH, BNP, CMP, T7 #### [facility] [address] [place] [address] Dr. Suzie Brooks Monocytes/100 WBC (Bld) 6.7 % Normal 1.7-12.0 [facility] Comment on above: Performed By: #### U DINA, LIPID, TSH, BNP, CMP, T7 #### [facility] [address] [place] [address] Dr. Suzie Brooks NEUT # 7.8 103/ul Critically high 1.4-6.5 [facility] Comment on above: Performed By: #### U DINA, LIPID, TSH, BNP, CMP, T7 #### [facility] [address] [address] [address] Suzie Brooks Neutrophils/100 WBC (Bld) 65.6 % Normal 43.0-75.0 [facility] Comment on above: Performed By: #### U DINA, LIPID, TSH, BNP, CMP, T7 #### [facility] [address] [address] [address] Suzie Brooks Platelet mean volume (Bld) [Entitic vol] 9.7 fL Normal 9.5-13.5 [facility] Comment on above: Performed By: #### U DINA, LIPID, TSH, BNP, CMP, T7 #### [facility] [address] [address] [address] Suzie Brooks PLT 289 103/ul Normal 150-450 [facility] Comment on above: Performed By: #### U DINA, LIPID, TSH, BNP, CMP, T7 #### [facility] [address] [address] [address] Suzie Brooks RBC 5.45 106/ul Normal 4.70-6.10 [facility] Comment on above: Performed By: #### U DINA, LIPID, TSH, BNP, CMP, T7 #### [facility] [address] [address] [address] Suzie Brooks WBC 11.9 103/ul Critically high 4.0-11.0 [facility] Comment on above: Performed By: #### U DINA, LIPID, TSH, BNP, CMP, T7 #### [facility] [address] [place] [address] Dr. Suzie Brooks CTA CHEST WO W [...] BEHZAD CARRASQUILLO Date: 2022-07-26 11:59 Normal [facility] Covid-19 PCR (CVDTB)on 07-11 SARS-CoV-2 (COVID-19) RNA SUKHJINDER+probe Ql (Unsp spec) Not detected Normal NOT DETECTED [facility] Comment on above: Result Comment: When [...] for this test is supported by the [place] of Health and Human Service's declaration that [...] DINA, LIPID, TSH, BNP, CMP, T7 #### [facility] [address] [address] [address] Suzie Brooks D-DIMERon 07-26-2022 D-DIMER 0.88 mg/L FEU Critically high <=0.59 [facility] Comment on above: Performed By: #### C VDTBH #### [facility] [address] [place], [place] [address] Dr. Suzie Brooks D-DIMER COMMENTS SEE BELOW Normal [facility] Comment on above: Result Comment: Incr [...] hospitalization. Performed By: #### C VDTBH #### [facility] [address] [place] [address] [address] Suzie Brooks ECHOCARDIO M/2D COMPLETEon 1 09-26-2021 ECHOCARDIO M/2D COMPLETE Patient: TOM APARICIO Exam Date: 07/26/2022 : 1950 Gender:M Ordering : DR MARIELLE LERMA . Admission #: [id number] Family : Order #: [id number] CLICK HERE TO VIEW EXAM ECHOCARDIOGRAM REPORT [...] Rios M.D. on 07/26/2022 at 16:22 Normal [facility] PROF 14(COMP METB)on 022 Albumin [Mass/Vol] 3.6 g/dL Normal 3.4-5.0 [facility] Comment on above: Performed By: #### U DINA, LIPID, TSH, BNP, CMP, T7 #### [facility] [address] [address] [address] Suzie Brooks Albumin/Globulin [Mass ratio] 0.9 {ratio} Normal [facility] Comment on above: Performed By: #### U DINA, LIPID, TSH, BNP, CMP, T7 #### [facility] [address] [place] [address] Dr. Suzie Brooks ALP [Catalytic activity/Vol] 70 U/L Normal 46-116 [facility] Comment on above: Performed By: #### U DINA, LIPID, TSH, BNP, CMP, T7 #### [facility] [address] [place] [address] Dr. Suzie Brooks ALT [Catalytic activity/Vol] 30 U/L Normal 16-63 [facility] Comment on above: Performed By: #### U DINA, LIPID, TSH, BNP, CMP, T7 #### [facility] [address] [place] [address] Dr. Suzie Brooks Anion gap [Moles/Vol] 9.2 mmol/L Normal [facility] Comment on above: Performed By: #### U DINA, LIPID, TSH, BNP, CMP, T7 #### [facility] [address] [place] [address] Dr. Suzie Brooks AST [Catalytic activity/Vol] 29 U/L Normal 15-37 [facility] Comment on above: Performed By: #### U DINA, LIPID, TSH, BNP, CMP, T7 #### [facility] [address] [place] [address] Dr. Suzie Brooks Bilirubin [Mass/Vol] 0.5 mg/dL Normal 0.2-1.0 [facility] Comment on above: Performed By: #### U DINA, LIPID, TSH, BNP, CMP, T7 #### [facility] [address] [place] [address] Dr. Suzie Brooks Calcium [Mass/Vol] 8.8 mg/dL Normal 8.5-10.1 [facility] Comment on above: Performed By: #### U DINA, LIPID, TSH, BNP, CMP, T7 #### [facility] [address] [address] [address] Suzie Brooks Chloride [Moles/Vol] 102 mmol/L Normal 98-107 [facility] Comment on above: Performed By: #### U DINA, LIPID, TSH, BNP, CMP, T7 #### [facility] [address] [address] [address] Suzie Brooks CO2 [Moles/Vol] 27.2 mmol/L Normal 21.0-32.0 [facility] Comment on above: Performed By: #### U DINA, LIPID, TSH, BNP, CMP, T7 #### [facility] [address] [address] [address] Suzie Brooks Creatinine [Mass/Vol] 0.99 mg/dL Normal 0.70-1.30 [facility] Comment on above: Performed By: #### U DINA, LIPID, TSH, BNP, CMP, T7 #### [facility] [address] [place] [address] Dr. Suzie Brooks EGFR-AF LIBERIAN >60 Normal >=60 [facility] Comment on above: Performed By: #### U DINA, LIPID, TSH, BNP, CMP, T7 #### [facility] [address] [place] [address] Dr. Suzie Brooks EGFR-NON AF LIBERIAN >60 Normal >=60 [facility] Comment on above: Performed By: #### U DINA, LIPID, TSH, BNP, CMP, T7 #### [facility] [address] [address] [address] Suzie Brooks Globulin (S) [Mass/Vol] 3.9 g/dL Normal [facility] Comment on above: Performed By: #### U DINA, LIPID, TSH, BNP, CMP, T7 #### [facility] [address] [place] [address] Dr. Suzie Brooks Glucose [Mass/Vol] 125 mg/dL Critically high 74-106 [facility] Comment on above: Performed By: #### U DINA, LIPID, TSH, BNP, CMP, T7 #### [facility] [address] [address] [address] Suzie Broosk Potassium [Moles/Vol] 3.4 mmol/L Critically low 3.5-5.1 [facility] Comment on above: Performed By: #### U DINA, LIPID, TSH, BNP, CMP, T7 #### [facility] [address] [place] [address] Dr. Suzie Brooks Protein [Mass/Vol] 7.5 g/dL Normal 6.4-8.2 [facility] Comment on above: Performed By: #### U DINA, LIPID, TSH, BNP, CMP, T7 #### [facility] [address] [place] [address] Dr. Suzie Brooks Sodium [Moles/Vol] 135 mmol/L Critically low 136-145 [facility] Comment on above: Performed By: #### U DINA, LIPID, TSH, BNP, CMP, T7 #### [facility] [address] [place] [address] Dr. Suzie Brooks Urea nitrogen [Mass/Vol] 15.0 mg/dL Normal 7.0-18.0 [facility] Comment on above: Performed By: #### U DINA, LIPID, TSH, BNP, CMP, T7 #### [facility] [address] [place] [address] Dr. Suzie Brooks Urea nitrogen/Creatinine [Mass ratio] 15.2 mg/mg Normal [facility] Comment on above: Performed By: #### U DINA, LIPID, TSH, BNP, CMP, T7 #### [facility] [address] [place] [address] Dr. Suzie Brooks PROTIMEon 07-26-2022 INR Coag (PPP) [Relative time] 0.95 {INR} Normal [facility] Comment on above: Performed By: #### C VDTBH #### [facility] [address] [place] [address] Dr. Suzie Brooks INR GUIDELINES SEE BELOW Normal [facility] Comment on above: Result Comment: TOMMY RED INR: 2.0 - 3.0 CONDITIONS NOT LISTED BELOW 2.5 - 3.5 FOR PROSTHETIC HEART VALVE REPLACEMENT 2.5 - 3.5 RECURRENT THROMBOSIS Performed By: #### C VDTBH #### [facility] [address] [address] [address] Suzie Brooks PT Coag (PPP) [Time] 10.3 s Normal 9.0-11.6 [facility] Comment on above: Performed By: #### C VDTBH #### [facility] [address] [place] [address] Dr. Suzie Brooks PTTon 07-26-2022 aPTT Coag (Bld) [Time] 28.2 s Normal 22.3-36.2 [facility] Comment on above: Performed By: #### C VDTBH #### [facility] [address] [place] [address] Dr. Suzie Brooks TSHon 07-26-2022 TSH 2.000 uIU/mL Normal 0.358-3.740 [facility] Comment on above: Performed By: #### O X24HR #### [facility] [address] [place] [address] Dr. Suzie Brooks XR CHEST 1 Von [...] by: BEHZAD CARRASQUILLO Date: 2022-07-26 10:51 Normal [facility] Reminderson 07-23-2022 Reminders - From: Aliza Recinos To: [place] - Recalls Zeng; Sent: 05/30/2022 15:57:23 EDT Show up: 05/30/2022 15:57:00 EDT Subject: IVP Due Date/Time: 06/19/2022 15:57:00 EST Reminder/Recall Pt needs IVP prior in June. Pt uses [facility] for CS at [facility] to call and scheduled pt for the 7, 8, or 9 scheduled on 07/18/2022 at 10:30 completed and in pt's chart he has a f/u in august Normal [facility] Lab Reportson 07-21-2022 Lab Reports [id number]:12 7 Normal [facility] RAD - MISCon 07-21-2022 RAD - MISC [id number]:12 7 Normal [facility] CREATININEon 07-18-2022 Creatinine [Mass/Vol] 0.93 mg/dL Normal 0.70-1.30 [facility] Comment on above: Performed By: #### U DINA, LIPID, TSH, BNP, CMP, T7 #### [facility] [address] [address] [address] Suzie Brooks EGFR-AF LIBERIAN >60 Normal >=60 [facility] Comment on above: Performed By: #### U DINA, LIPID, TSH, BNP, CMP, T7 #### [facility] [address] [address] [address] Suzie Brooks EGFR-NON AF LIBERIAN >60 Normal >=60 [facility] Comment on above: Performed By: #### U DINA, LIPID, TSH, BNP, CMP, T7 #### [facility] [address] [address] [address] Suzie Brooks XR IVPon 07-18-2022 XR IVP EXAMINATION: XR IVP HISTORY: Kidney stone COMPARISON: XR KUB 11/21/2021, CT abdomen pelvis 02/16/2022 TECHNIQUE: After obtaining patient consent a solar system designer image was obtained followed by injection of [...] BEHZAD CARRASQUILLO Date: 2022-07-18 11:50 Normal [facility] INSULINon 05-16-2022 Insulin 59.0 uIU/mL Critically high 2.6-24.9 [facility] Comment on above: Performed By: #### U DINA, LIPID, TSH, BNP, CMP, T7 #### [facility] [address] [place] [address] Dr. Suzie Brooks BNPon 05-15-2022 Natriuretic peptide B (Bld) [Mass/Vol] 81.0 pg/mL Normal <=900.0 [facility] Comment on above: Performed By: #### U DINA, LIPID, TSH, BNP, CMP, T7 #### [facility] [address] [place] [address] Dr. Suzie Brooks CBC AUTO DIFFon 05-15-2022 BASO # 0.1 103/ul Normal 0.0-0.1 [facility] Comment on above: Performed By: #### C VDTBH #### [facility] [address] [place] [address] Dr. Suzie Brooks Basophils/100 WBC (Bld) 0.6 % Normal 0.2-2.0 [facility] Comment on above: Performed By: #### C VDTBH #### [facility] [address] [place] [address] Dr. Suzie Brooks EO # 0.3 103/ul Normal 0.0-0.7 [facility] Comment on above: Performed By: #### C VDTBH #### [facility] [address] [place] [address] Dr. Suzie Brooks Eosinophils/100 WBC (Bld) 2.9 % Normal 0.9-7.0 [facility] Comment on above: Performed By: #### C VDTBH #### [facility] [address] [place] [address] Dr. Suzie Brooks Erythrocyte distribution width (RBC) [Ratio] 14.1 % Normal 11.0-15.0 [facility] Comment on above: Performed By: #### C VDTBH #### [facility] [address] [place] [address] Dr. Suzie Brooks Hematocrit (Bld) [Volume fraction] 46.7 % Normal 42.0-54.0 [facility] Comment on above: Performed By: #### C VDTBH #### [facility] [address] [place] [address] Dr. Suzie Brooks Hemoglobin (Bld) [Mass/Vol] 15.4 g/dL Normal 14.0-18.0 [facility] Comment on above: Performed By: #### C VDTBH #### [facility] [address] [place] [address] Dr. Suzie Brooks IG # 0.03 10e3/ul Normal 0.00-0.03 [facility] Comment on above: Performed By: #### C VDTBH #### [facility] [address] [place] [address] Dr. Suzie Brooks IG % 0.3 % Normal 0.0-0.5 [facility] Comment on above: Performed By: #### C VDTBH #### [facility] [address] [place] [address] Dr. Suzie Brooks LYMPH # 2.6 103/ul Normal 1.2-3.8 [facility] Comment on above: Performed By: #### C VDTBH #### [facility] [address] [place] [address] Dr. Suzie Brooks Lymphocytes/100 WBC (Bld) 25.1 % Normal 20.5-60.0 [facility] Comment on above: Performed By: #### C VDTBH #### [facility] [address] [place] [address] Dr. Suzie Brooks MANUAL DIFF REQ NO Normal [facility] Comment on above: Performed By: #### C VDTBH #### [facility] [address] [place] [address] Dr. Suzie Brooks MCH (RBC) [Entitic mass] 28.6 pg Normal 25.9-34.0 [facility] Comment on above: Performed By: #### C VDTBH #### [facility] [address] [place] [address] Dr. Suzie Brooks MCHC (RBC) [Mass/Vol] 33.0 g/dL Normal 29.9-35.2 [facility] Comment on above: Performed By: #### C VDTBH #### [facility] [address] [place] [address] Dr. Suzie Brooks MCV (RBC) [Entitic vol] 86.8 fL Normal 80.0-94.0 [facility] Comment on above: Performed By: #### C VDTBH #### [facility] [address] [place] [address] Dr. Suzie Brooks MONO # 0.7 103/ul Normal 0.3-0.8 [facility] Comment on above: Performed By: #### C VDTBH #### [facility] [address] [place] [address] Dr. Suzie Brooks Monocytes/100 WBC (Bld) 6.8 % Normal 1.7-12.0 [facility] Comment on above: Performed By: #### C VDTBH #### [facility] [address] [place] [address] Dr. Suzie Brooks NEUT # 6.5 103/ul Normal 1.4-6.5 [facility] Comment on above: Performed By: #### C VDTBH #### [facility] [address] [place] [address] Dr. Suzie Brooks Neutrophils/100 WBC (Bld) 64.3 % Normal 43.0-75.0 [facility] Comment on above: Performed By: #### C VDTBH #### [facility] [address] [address] [address] Suzie Brooks Platelet mean volume (Bld) [Entitic vol] 9.5 fL Normal 9.5-13.5 [facility] Comment on above: Performed By: #### C VDTBH #### [facility] [address] [place] [address] Dr. Suzie Brooks PLT 273 103/ul Normal 150-450 [facility] Comment on above: Performed By: #### C VDTBH #### [facility] [address] [place] [address] Dr. Suzie Brooks RBC 5.38 106/ul Normal 4.70-6.10 [facility] Comment on above: Performed By: #### C VDTBH #### [facility] [address] [place] [address] Dr. Suzie Brooks WBC 10.2 103/ul Normal 4.0-11.0 [facility] Comment on above: Performed By: #### C VDTBH #### [facility] [address] [place] [address] Dr. Suzie Brooks FREE THYROXINE INDEX T7on FTI 2.23 Normal 1.30-4.50 [facility] Comment on above: Performed By: #### U DINA, LIPID, TSH, BNP, CMP, T7 #### [facility] [address] [place] [address] Dr. Suzie Brooks T3U 36.0 % Normal 33.0-40.0 [facility] Comment on above: Performed By: #### U DINA, LIPID, TSH, BNP, CMP, T7 #### [facility] [address] [place] [address] Dr. Suzie Brooks T4 [Mass/Vol] 6.20 ug/dL Normal 4.50-12.10 [facility] Comment on above: Performed By: #### U DINA, LIPID, TSH, BNP, CMP, T7 #### [facility] [address] [place] [address] Dr. Suzie Brooks GLYCOHEMOGLOBIN A1Con 2021 ADA RECOMMENDATION SEE BELOW Normal [facility] Comment on above: Result Comment: ADA RECOMMENDED LIMIT 4.0 - 6.0 ADA THERAPEUTIC TARGET < 7.0 ACTION SUGGESTED > 7.0 Performed By: #### U DINA, LIPID, TSH, BNP, CMP, T7 #### [facility] [address] [address] [address] Suzie Brooks Glucose [Mass/Vol] 111 mg/dL Normal [facility] Comment on above: Performed By: #### U DINA, LIPID, TSH, BNP, CMP, T7 #### [facility] [address] [address] [address] Suzie Brooks HbA1c (Bld) [Mass fraction] 5.5 % Normal 4.5-6.2 [facility] Comment on above: Performed By: #### U DINA, LIPID, TSH, BNP, CMP, T7 #### [facility] [address] [address] [address] Suzie Brooks LIPID PROFILEon 05-15-2022 CHOL-HDL RATIO NORM SEE BELOW Normal [facility] Comment on above: Result Comment: 3.3 - 4.4 LOW RISK 4.4 - 7.1 AVERAGE RISK 7.1 - 11.0 MODERATE RISK >11.0 HIGH RISK Performed By: #### U DINA, LIPID, TSH, BNP, CMP, T7 #### [facility] [address] [address] [address] Suzie Brooks Cholesterol [Mass/Vol] 136 mg/dL Normal <=200 [facility] Comment on above: Performed By: #### U DINA, LIPID, TSH, BNP, CMP, T7 #### [facility] [address] [address] [address] Suzie Brooks Cholesterol in HDL [Mass/Vol] 34 mg/dL Critically low 40-60 [facility] Comment on above: Performed By: #### U DINA, LIPID, TSH, BNP, CMP, T7 #### [facility] [address] [address] [address] Suzie Brooks Cholesterol in LDL [Mass/Vol] 49.8 mg/dL Normal [facility] Comment on above: Performed By: #### U DINA, LIPID, TSH, BNP, CMP, T7 #### [facility] [address] [address] [address] Suzie Brooks Cholesterol.total/Ch olesterol in HDL [Mass ratio] 4.0 {ratio} Normal [facility] Comment on above: Performed By: #### U DINA, LIPID, TSH, BNP, CMP, T7 #### [facility] [address] [address] [address] Suzie Brooks HDL NORMAL > or = 60 mg/dl - LO W CARDIOVASCULAR RISK <40 mg/dl - HIGH CARDIOVASCULAR RISK Normal [facility] Comment on above: Performed By: #### U DINA, LIPID, TSH, BNP, CMP, T7 #### [facility] [address] [address] [address] Suzie Brooks LDL CALC NORMAL SEE BELOW Normal [facility] Comment on above: Result Comment: <100 mg/dl OPTIMAL 100 - 129 mg/dl NEAR OR ABOVE OPTIMAL 130 - 159 mg/dl BORDERLINE HIGH 160 - 189 mg/dl HIGH >190 mg/dl VERY HIGH Performed By: #### U DINA, LIPID, TSH, BNP, CMP, T7 #### [facility] [address] [address] [address] Suzie Brooks Triglyceride [Mass/Vol] 261 mg/dL Critically high <=150 [facility] Comment on above: Performed By: #### U DINA, LIPID, TSH, BNP, CMP, T7 #### [facility] [address] [address] [address] Suzie Brooks VLDL CALC 52.2 mg/dL Normal [facility] Comment on above: Performed By: #### U DINA, LIPID, TSH, BNP, CMP, T7 #### [facility] [id number] Suzie Brooks PROF 14(COMP METB)on 022 Albumin [Mass/Vol] 3.6 g/dL Normal 3.4-5.0 [facility] Comment on above: Performed By: #### U DINA, LIPID, TSH, BNP, CMP, T7 #### [facility] [address] [address] [address] Suzie Brooks Albumin/Globulin [Mass ratio] 0.9 {ratio} Normal [facility] Comment on above: Performed By: #### U DINA, LIPID, TSH, BNP, CMP, T7 #### [facility] [address] [place] [address] Dr. Suzie Brooks ALP [Catalytic activity/Vol] 60 U/L Normal 46-116 [facility] Comment on above: Performed By: #### U DINA, LIPID, TSH, BNP, CMP, T7 #### [facility] [address] [place] [address] Dr. Suzie Brooks ALT [Catalytic activity/Vol] 36 U/L Normal 16-63 [facility] Comment on above: Performed By: #### U DINA, LIPID, TSH, BNP, CMP, T7 #### [facility] [address] [place] [address] Dr. Suzie Brooks Anion gap [Moles/Vol] 11.7 mmol/L Normal [facility] Comment on above: Performed By: #### U DINA, LIPID, TSH, BNP, CMP, T7 #### [facility] [address] [place] [address] Dr. Suzie Brooks AST [Catalytic activity/Vol] 28 U/L Normal 15-37 [facility] Comment on above: Performed By: #### U DINA, LIPID, TSH, BNP, CMP, T7 #### [facility] [address] [place] [address] Dr. Suzie Brooks Bilirubin [Mass/Vol] 0.6 mg/dL Normal 0.2-1.0 [facility] Comment on above: Performed By: #### U DINA, LIPID, TSH, BNP, CMP, T7 #### [facility] [address] [place] [address] Dr. Suzie Brooks Calcium [Mass/Vol] 8.8 mg/dL Normal 8.5-10.1 [facility] Comment on above: Performed By: #### U DINA, LIPID, TSH, BNP, CMP, T7 #### [facility] [address] [address] [address] Suzie Brooks Chloride [Moles/Vol] 102 mmol/L Normal 98-107 [facility] Comment on above: Performed By: #### U DINA, LIPID, TSH, BNP, CMP, T7 #### [facility] [address] [address] [address] Suzie Brooks CO2 [Moles/Vol] 27.9 mmol/L Normal 21.0-32.0 [facility] Comment on above: Performed By: #### U DINA, LIPID, TSH, BNP, CMP, T7 #### [facility] [address] [address] [address] Suzie Brooks Creatinine [Mass/Vol] 0.98 mg/dL Normal 0.70-1.30 [facility] Comment on above: Performed By: #### U DINA, LIPID, TSH, BNP, CMP, T7 #### [facility] [address] [place] [address] Dr. Suzie Brooks EGFR-AF LIBERIAN >60 Normal >=60 [facility] Comment on above: Performed By: #### U DINA, LIPID, TSH, BNP, CMP, T7 #### [facility] [address] [place] [address] Dr. Suzie Brooks EGFR-NON AF LIBERIAN >60 Normal >=60 [facility] Comment on above: Performed By: #### U DINA, LIPID, TSH, BNP, CMP, T7 #### [facility] [address] [place] [address] Dr. Suzie Brooks Globulin (S) [Mass/Vol] 3.8 g/dL Normal [facility] Comment on above: Performed By: #### U DINA, LIPID, TSH, BNP, CMP, T7 #### [facility] [address] [address] [address] Suzie Brooks Glucose [Mass/Vol] 107 mg/dL Critically high 74-106 T [facility] Comment on above: Performed By: #### U DINA, LIPID, TSH, BNP, CMP, T7 #### [facility] [address] [address] [address] Suzie Brooks Potassium [Moles/Vol] 3.6 mmol/L Normal 3.5-5.1 [facility] Comment on above: Performed By: #### U DINA, LIPID, TSH, BNP, CMP, T7 #### [facility] [address] [address] [address] Suzie Brooks Protein [Mass/Vol] 7.4 g/dL Normal 6.4-8.2 [facility] Comment on above: Performed By: #### U DINA, LIPID, TSH, BNP, CMP, T7 #### [facility] [address] [place] [address] Dr. Suzie Brooks Sodium [Moles/Vol] 138 mmol/L Normal 136-145 [facility] [place] Comment on above: Performed By: #### U DINA, LIPID, TSH, BNP, CMP, T7 #### [facility] [address] [place] [address] Dr. Suzie Brooks Urea nitrogen [Mass/Vol] 12.0 mg/dL Normal 7.0-18.0 [facility] Comment on above: Performed By: #### U DINA, LIPID, TSH, BNP, CMP, T7 #### [facility] [address] [place] [address] Dr. Suzie Brooks Urea nitrogen/Creatinine [Mass ratio] 12.2 mg/mg Normal [facility] Comment on above: Performed By: #### U DINA, LIPID, TSH, BNP, CMP, T7 #### [facility] [address] [place] [address] Dr. Suzie Brooks TSHon 05-15-2022 TSH 2.356 uIU/mL Normal 0.358-3.740 [facility] Comment on above: Performed By: #### U DINA, LIPID, TSH, BNP, CMP, T7 #### [facility] [address] [place] [address] Dr. Suzie Brooks URIC ACID SERUMon 05-15-2022 Urate [Mass/Vol] 5.2 mg/dL Normal 3.5-7.2 [facility] Comment on above: Performed By: #### U DINA, LIPID, TSH, BNP, CMP, T7 #### [facility] [address] [address] [address] Suzie Brooks CALCULI, URINARYon 2 2,8 Dihydroxyadenine Normal [facility] Comment on above: Performed By: #### U DINA, LIPID, TSH, BNP, CMP, T7 #### [facility] [address] [address] [address] Suzie Brooks Ammonium Acid Urate Normal [facility] Comment on above: Performed By: #### U DINA, LIPID, TSH, BNP, CMP, T7 #### [facility] [address] [address] [address] Suzie Brooks Bilirubin Ql (U) Normal [facility] Comment on above: Performed By: #### U DINA, LIPID, TSH, BNP, CMP, T7 #### [facility] [address] [address] [address] Suzie Brooks Ca Oxalate Dihydrate Normal [facility] Comment on above: Performed By: #### U DINA, LIPID, TSH, BNP, CMP, T7 #### [facility] [address] [address] [address] Suzie Brooks CaHPO4 (Brushite) [facility] Comment on above: Performed By: #### U DINA, LIPID, TSH, BNP, CMP, T7 #### [facility] [address] [address] [address] Suzie Brooks Calcium Bilirubinate Normal [facility] Comment on above: Performed By: #### U DINA, LIPID, TSH, BNP, CMP, T7 #### [facility] [address] [address] [address] Suzie Brooks Calcium Carbonate Normal [facility] Comment on above: Performed By: #### U DINA, LIPID, TSH, BNP, CMP, T7 #### [facility] [address] [address] [address] Suzie Brooks Calcium Oxalate Monohydrate 70 % Normal [facility] Comment on above: Performed By: #### U DINA, LIPID, TSH, BNP, CMP, T7 #### [facility] [address] [address] [address] Suzie Brooks Calcium Palmitate Normal [facility] Comment on above: Performed By: #### U DINA, LIPID, TSH, BNP, CMP, T7 #### [facility] [address] [address] [address] Suzie Brooks Calcium Phosphate Normal [facility] Comment on above: Performed By: #### U DINA, LIPID, TSH, BNP, CMP, T7 #### [facility] [address] [address] [address] Suzie Brooks Calcium Stearate Normal [facility] Comment on above: Performed By: #### U DINA, LIPID, TSH, BNP, CMP, T7 #### [facility] [address] [address] [address] Suzie Brooks Carbonate Apatite Normal [facility] Comment on above: Performed By: #### U DINA, LIPID, TSH, BNP, CMP, T7 #### [facility] [address] [address] [address] Suzie Brooks Cellular Material Normal [facility] Comment on above: Performed By: #### U DINA, LIPID, TSH, BNP, CMP, T7 #### [facility] [address] [address] [address] Suzie Brooks Cholesterol [facility] Comment on above: Performed By: #### U DINA, LIPID, TSH, BNP, CMP, T7 #### [facility] [address] [address] [address] Suzie Brooks Color (U) Brown Normal [facility] Comment on above: Performed By: #### U DINA, LIPID, TSH, BNP, CMP, T7 #### [facility] [address] [address] [address] Suzie Brooks Comment [facility] Comment on above: Performed By: #### U DINA, LIPID, TSH, BNP, CMP, T7 #### [facility] [address] [address] [address] Suzie Brooks Comment Comment Normal [facility] Comment on above: Result Comment: Calc ulus received in liquid. Wet calculi must be dried before analysis, which delays reporting of results. Leaving calculi in liquid (such as water, saline, blood, urine) may lead to changes in composition. Performed By: #### U DINA, LIPID, TSH, BNP, CMP, T7 #### [facility] [address] [address] [address] Suzie Brooks Comment: Comment Normal [facility] Comment on above: Result Comment: Fantasma baez questions regarding Calculi Analysis contact [facility] at: [phone]. Performed By: #### U DINA, LIPID, TSH, BNP, CMP, T7 #### [facility] [address] [address] [address] Suzie Brooks Composition Comment [facility] Comment on above: Result Comment: Perc entage (Represents the % composition) Performed By: #### U DINA, LIPID, TSH, BNP, CMP, T7 #### [facility] [address] [address] [address] Suzie Brooks Cystine Normal [facility] Comment on above: Performed By: #### U DINA, LIPID, TSH, BNP, CMP, T7 #### [facility] [address] [address] [address] Suzie Brooks Disclaimer: Comment Normal [facility] Comment on above: Result Comment: This test was developed and its performance characteristics determined by [facility]. It has not been cleared or approved by the Food and Drug Administration. Performed By: #### U DINA, LIPID, TSH, BNP, CMP, T7 #### [facility] [address] [address] [address] Suzie Brooks Dried Blood Normal [facility] Comment on above: Performed By: #### U DINA, LIPID, TSH, BNP, CMP, T7 #### [facility] [address] [address] [address] Suzie Brooks Drug or Metabolite Normal [facility] Comment on above: Performed By: #### U DINA, LIPID, TSH, BNP, CMP, T7 #### [facility] [address] [address] [address] Suzie Brooks Hydroxyapatite Normal [facility] Comment on above: Performed By: #### U DINA, LIPID, TSH, BNP, CMP, T7 #### [facility] [address] [address] [address] Suzie Brooks Mg NH4 PO4 (Struvite) [facility] Comment on above: Performed By: #### U DINA, LIPID, TSH, BNP, CMP, T7 #### [facility] [address] [address] [address] Suzie Brooks MgHPO4 (Newberyite) Normal [facility] Comment on above: Performed By: #### U DINA, LIPID, TSH, BNP, CMP, T7 #### [facility] [address] [address] [address] Suzie Brooks Other component(s) Normal [facility] Comment on above: Performed By: #### U DINA, LIPID, TSH, BNP, CMP, T7 #### [facility] [address] [address] [address] Suzie Brooks PDF . Normal [facility] Comment on above: Performed By: #### U DINA, LIPID, TSH, BNP, CMP, T7 #### [facility] [address] [address] [address] Suzie Brooks Photo Comment [facility] Comment on above: Result Comment: Phot ograph will follow under a separate cover Performed By: #### U DINA, LIPID, TSH, BNP, CMP, T7 #### [facility] [address] [address] [address] Suzie Brooks Please note: Comment [facility] Comment on above: Result Comment: Calc shamika report will follow via computer, mail or senior instructor delivery. Performed By: #### U DINA, LIPID, TSH, BNP, CMP, T7 #### [facility] [address] [address] [address] Suzie Brooks Size 6x4 [facility] Comment on above: Result Comment: Mult iple pieces received. Dimensions of the largest piece reported. Performed By: #### U DINA, LIPID, TSH, BNP, CMP, T7 #### [facility] [address] [address] [address] Suzie Brooks Sodium Acid Urate Normal [facility] Comment on above: Performed By: #### U DINA, LIPID, TSH, BNP, CMP, T7 #### [facility] [address] [address] [address] Suzie Brooks Source Comment [facility] Comment on above: Result Comment: Not provided Performed By: #### U DINA, LIPID, TSH, BNP, CMP, T7 #### [facility] [address] [address] [address] Suzie Brooks Triamterene [facility] Comment on above: Performed By: #### U DINA, LIPID, TSH, BNP, CMP, T7 #### [facility] [address] [address] [address] Suzie Brooks Uric Acid 30 % [facility] Comment on above: Performed By: #### U DINA, LIPID, TSH, BNP, CMP, T7 #### [facility] [address] [address] [address] Suzie Brooks Uric Acid Dihydrate Normal [facility] Comment on above: Performed By: #### U DINA, LIPID, TSH, BNP, CMP, T7 #### [facility] [address] [address] [address] Suzie Brooks Weight 99 mg Normal [facility] Comment on above: Performed By: #### U DINA, LIPID, TSH, BNP, CMP, T7 #### [facility] [address] [address] [address] Suzie Brooks Xanthine [facility] Comment on above: Performed By: #### U DINA, LIPID, TSH, BNP, CMP, T7 #### [facility] [address] [address] [address] Suzie Brooks CBC AUTO DIFFon 02-18-2022 BASO # 0.0 103/ul Normal 0.0-0.1 [facility] Comment on above: Performed By: #### U DINA, LIPID, TSH, BNP, CMP, T7 #### [facility] [address] [address] [address] Suzie Brooks Basophils/100 WBC (Bld) 0.3 % Normal 0.2-2.0 [facility] Comment on above: Performed By: #### U DINA, LIPID, TSH, BNP, CMP, T7 #### [facility] [address] [place] [address] Dr. Suzie Brooks EO # 0.3 103/ul Normal 0.0-0.7 [facility] Comment on above: Performed By: #### U DINA, LIPID, TSH, BNP, CMP, T7 #### [facility] [address] [place] [address] Dr. Suzie Brooks Eosinophils/100 WBC (Bld) 2.3 % Normal 0.9-7.0 [facility] Comment on above: Performed By: #### U DINA, LIPID, TSH, BNP, CMP, T7 #### [facility] [address] [place] [address] Dr. Suzie Brooks Erythrocyte distribution width (RBC) [Ratio] 14.2 % Normal 11.0-15.0 [facility] Comment on above: Performed By: #### U DINA, LIPID, TSH, BNP, CMP, T7 #### [facility] [address] [place] [address] Dr. Suzie Brooks Hematocrit (Bld) [Volume fraction] 41.3 % Critically low 42.0-54.0 [facility] Comment on above: Performed By: #### U DINA, LIPID, TSH, BNP, CMP, T7 #### [facility] [address] [place] [address] Dr. Suzie Brooks Hemoglobin (Bld) [Mass/Vol] 13.4 g/dL Critically low 14.0-18.0 [facility] Comment on above: Performed By: #### U DINA, LIPID, TSH, BNP, CMP, T7 #### [facility] [address] [place] [address] Dr. Suzie Brooks IG # 0.03 10e3/ul Normal 0.00-0.03 [facility] Comment on above: Performed By: #### U DINA, LIPID, TSH, BNP, CMP, T7 #### [facility] [address] [place] [address] Dr. Suzie Brooks IG % 0.3 % Normal 0.0-0.5 [facility] Comment on above: Performed By: #### U DINA, LIPID, TSH, BNP, CMP, T7 #### [facility] [address] [address] [address] Suzie Brooks LYMPH # 2.0 103/ul Normal 1.2-3.8 [facility] Comment on above: Performed By: #### U DINA, LIPID, TSH, BNP, CMP, T7 #### [facility] [address] [place] [address] Dr. Suzie Brooks Lymphocytes/100 WBC (Bld) 18.0 % Critically low 20.5-60.0 [facility] Comment on above: Performed By: #### U DINA, LIPID, TSH, BNP, CMP, T7 #### [facility] [address] [place] [address] Dr. Suzie Brooks MANUAL DIFF REQ NO Normal [facility] Comment on above: Performed By: #### U DINA, LIPID, TSH, BNP, CMP, T7 #### [facility] [address] [place] [address] Dr. Suzie Brooks MCH (RBC) [Entitic mass] 28.8 pg Normal 25.9-34.0 [facility] Comment on above: Performed By: #### U DINA, LIPID, TSH, BNP, CMP, T7 #### [facility] [address] [place] [address] Dr. Suzie Brooks MCHC (RBC) [Mass/Vol] 32.4 g/dL Normal 29.9-35.2 [facility] Comment on above: Performed By: #### U DINA, LIPID, TSH, BNP, CMP, T7 #### [facility] [address] [place] [address] Dr. Suzie Brooks MCV (RBC) [Entitic vol] 88.6 fL Normal 80.0-94.0 [facility] Comment on above: Performed By: #### U DINA, LIPID, TSH, BNP, CMP, T7 #### [facility] [address] [place] [address] Dr. Suzie Brooks MONO # 1.0 103/ul Critically high 0.3-0.8 [facility] Comment on above: Performed By: #### U DINA, LIPID, TSH, BNP, CMP, T7 #### [facility] [address] [address] [address] Suzie Brooks Monocytes/100 WBC (Bld) 9.2 % Normal 1.7-12.0 [facility] Comment on above: Performed By: #### U DINA, LIPID, TSH, BNP, CMP, T7 #### [facility] [address] [address] [address] Suzie Brooks NEUT # 7.9 103/ul Critically high 1.4-6.5 [facility] Comment on above: Performed By: #### U DINA, LIPID, TSH, BNP, CMP, T7 #### [facility] [address] [address] [address] Suzie Brooks Neutrophils/100 WBC (Bld) 69.9 % Normal 43.0-75.0 [facility] Comment on above: Performed By: #### U DINA, LIPID, TSH, BNP, CMP, T7 #### [facility] [address] [address] [address] Suzie Brooks Platelet mean volume (Bld) [Entitic vol] 9.6 fL Normal 9.5-13.5 [facility] Comment on above: Performed By: #### U DINA, LIPID, TSH, BNP, CMP, T7 #### [facility] [address] [address] [address] Suzie Brooks PLT 218 103/ul Normal 150-450 [facility] Comment on above: Performed By: #### U DINA, LIPID, TSH, BNP, CMP, T7 #### [facility] [address] [address] [address] Suzie Brooks RBC 4.66 106/ul Critically low 4.70-6.10 [facility] Comment on above: Performed By: #### U DINA, LIPID, TSH, BNP, CMP, T7 #### [facility] [address] [address] [address] Suzie Brooks WBC 11.3 103/ul Critically high 4.0-11.0 [facility] Comment on above: Performed By: #### U DINA, LIPID, TSH, BNP, CMP, T7 #### [facility] [address] [address] [address] Suzie Brooks CULTURE URINEon 02-18-2022 CULTURE URINE Culture Observations : NO GROWTH. Normal [facility] Comment on above: Performed By: #### M AG24 #### [facility] [address] [address] [address] Suzie Brooks Covid-19 PCR (CVDTB)on 02-08 SARS-CoV-2 (COVID-19) RNA SUKHJINDER+probe Ql (Unsp spec) Not detected Normal NOT DETECTED [facility] Comment on above: Result Comment: When [...] for this test is supported by the [employer] of [employer] and Human Service's declaration that [...] used). Performed By: #### C VDTBH #### [facility] [address] [address] [address] Suzie Brooks PROF 14(COMP METB)on 022 Albumin [Mass/Vol] 3.0 g/dL Critically low 3.4-5.0 [facility] Comment on above: Performed By: #### O X24HR #### [facility] [address] [place] [address] [address] [address] Suzie Brooks Albumin/Globulin [Mass ratio] 0.9 {ratio} Normal [facility] Comment on above: Performed By: #### O X24HR #### [facility] [address] [address] [address] Suzie Brooks ALP [Catalytic activity/Vol] 49 U/L Normal 46-116 [facility] Comment on above: Performed By: #### O X24HR #### [facility] [address] [address] [address] Suzie Brooks ALT [Catalytic activity/Vol] 35 U/L Normal 16-63 [facility] Comment on above: Performed By: #### O X24HR #### [facility] [address] [address] [address] Suzie Brooks Anion gap [Moles/Vol] 11.8 mmol/L Normal [facility] Comment on above: Performed By: #### O X24HR #### [facility] [address] [place] [address] Dr. Suzie Brooks AST [Catalytic activity/Vol] 27 U/L Normal 15-37 [facility] Comment on above: Performed By: #### O X24HR #### [facility] [address] [address] [address] Suzie Brooks Bilirubin [Mass/Vol] 0.4 mg/dL Normal 0.2-1.0 [facility] Comment on above: Performed By: #### O X24HR #### [facility] [address] [place] [address] Dr. Suzie Brooks Calcium [Mass/Vol] 7.6 mg/dL Critically low 8.5-10.1 [facility] Comment on above: Performed By: #### O X24HR #### [facility] [address] [address] [address] Suzie Brooks Chloride [Moles/Vol] 106 mmol/L Normal 98-107 [facility] Comment on above: Performed By: #### O X24HR #### [facility] [address] [address] [address] Suzie Brooks CO2 [Moles/Vol] 26.2 mmol/L Normal 21.0-32.0 [facility] Comment on above: Performed By: #### O X24HR #### [facility] [address] [address] [address] Suzie Brooks Creatinine [Mass/Vol] 1.08 mg/dL Normal 0.70-1.30 [facility] Comment on above: Performed By: #### O X24HR #### [facility] [address] [address] [address] Suzie Brooks EGFR-AF LIBERIAN >60 Normal >=60 [facility] Comment on above: Performed By: #### O X24HR #### [facility] [address] [address] [address] Suzie Brooks EGFR-NON AF LIBERIAN >60 Normal >=60 [facility] Comment on above: Performed By: #### O X24HR #### [facility] [address] [place] [address] Dr. Suzie Brooks Globulin (S) [Mass/Vol] 3.2 g/dL Normal [facility] Comment on above: Performed By: #### O X24HR #### [facility] [address] [place] [address] Dr. Suzie Brooks Glucose [Mass/Vol] 107 mg/dL Critically high 74-106 [facility] Comment on above: Performed By: #### O X24HR #### [facility] [address] [place] [address] Dr. Suzie Brooks Potassium [Moles/Vol] 4.0 mmol/L Normal 3.5-5.1 [facility] Comment on above: Performed By: #### O X24HR #### [facility] [address] [place] [address] Dr. Suzie Brooks Protein [Mass/Vol] 6.2 g/dL Critically low 6.4-8.2 [facility] Comment on above: Performed By: #### O X24HR #### [facility] [address] [place] [address] Dr. Suzie Brooks Sodium [Moles/Vol] 140 mmol/L Normal 136-145 [facility] Comment on above: Performed By: #### O X24HR #### [facility] [address] [place] [address] Dr. Suzie Brooks Urea nitrogen [Mass/Vol] 14.0 mg/dL Normal 7.0-18.0 [facility] Comment on above: Performed By: #### O X24HR #### [facility] [address] [place] [address] Dr. Suzie Brooks Urea nitrogen/Creatinine [Mass ratio] 13.0 mg/mg Normal [facility] Comment on above: Performed By: #### O X24HR #### [facility] [address] [place] [address] Dr. Suzie Brooks CBC AUTO DIFFon 02-17-2022 BASO # 0.1 103/ul Normal 0.0-0.1 [facility] Comment on above: Performed By: #### M AG24 #### [facility] [address] [place] [address] Dr. Suzie Brooks Basophils/100 WBC (Bld) 0.4 % Normal 0.2-2.0 [facility] Comment on above: Performed By: #### M AG24 #### [facility] [address] [place] [address] Dr. Suzie Brooks EO # 0.3 103/ul Normal 0.0-0.7 [facility] Comment on above: Performed By: #### M AG24 #### [facility] [address] [place] [address] Dr. Suzie Brooks Eosinophils/100 WBC (Bld) 2.3 % Normal 0.9-7.0 [facility] Comment on above: Performed By: #### M AG24 #### [facility] [address] [place] [address] Dr. Suzie Brooks Erythrocyte distribution width (RBC) [Ratio] 13.8 % Normal 11.0-15.0 [facility] Comment on above: Performed By: #### M AG24 #### [facility] [address] [place] [address] Dr. Suzie Brooks Hematocrit (Bld) [Volume fraction] 45.2 % Normal 42.0-54.0 [facility] Comment on above: Performed By: #### M AG24 #### [facility] [address] [place] [address] Dr. Suzie Brooks Hemoglobin (Bld) [Mass/Vol] 14.9 g/dL Normal 14.0-18.0 [facility] Comment on above: Performed By: #### M AG24 #### [facility] [address] [place] [address] Dr. Suzie Brooks IG # 0.05 10e3/ul Critically high 0.00-0.03 [facility] Comment on above: Performed By: #### M AG24 #### [facility] [address] [place] [address] Dr. Suzie Brooks IG % 0.4 % Normal 0.0-0.5 [facility] Comment on above: Performed By: #### M AG24 #### [facility] [address] [place] [address] Dr. Suzie Brooks LYMPH # 2.5 103/ul Normal 1.2-3.8 [facility] Comment on above: Performed By: #### M AG24 #### [facility] [address] [place] [address] Dr. Suzie Brooks Lymphocytes/100 WBC (Bld) 17.3 % Critically low 20.5-60.0 [facility] Comment on above: Performed By: #### M AG24 #### [facility] [address] [place] [address] Dr. Suzie Brooks MANUAL DIFF REQ NO Normal [facility] Comment on above: Performed By: #### M AG24 #### [facility] [address] [place] [address] Dr. Suzie Brooks MCH (RBC) [Entitic mass] 28.7 pg Normal 25.9-34.0 [facility] Comment on above: Performed By: #### M AG24 #### [facility] [address] [place] [address] Dr. Suzie Brooks MCHC (RBC) [Mass/Vol] 33.0 g/dL Normal 29.9-35.2 [facility] Comment on above: Performed By: #### M AG24 #### [facility] [address] [place] [address] Dr. Suzie Brooks MCV (RBC) [Entitic vol] 87.1 fL Normal 80.0-94.0 [facility] Comment on above: Performed By: #### M AG24 #### [facility] [address] [place] [address] Dr. Suzie Brooks MONO # 1.0 103/ul Critically high 0.3-0.8 [facility] Comment on above: Performed By: #### M AG24 #### [facility] [address] [place] [address] Dr. Suzie Brooks Monocytes/100 WBC (Bld) 6.8 % Normal 1.7-12.0 [facility] Comment on above: Performed By: #### M AG24 #### [facility] [address] [place] [address] Dr. Suzie Brooks NEUT # 10.3 103/ul Critically high 1.4-6.5 [facility] Comment on above: Performed By: #### M AG24 #### [facility] [address] [place] [address] Dr. Suzie Brooks Neutrophils/100 WBC (Bld) 72.8 % Normal 43.0-75.0 [facility] Comment on above: Performed By: #### M AG24 #### [facility] [address] [place] [address] Dr. Suzie Brooks Platelet mean volume (Bld) [Entitic vol] 9.7 fL Normal 9.5-13.5 [facility] Comment on above: Performed By: #### M AG24 #### [facility] [address] [place] [address] Dr. Suzie Brooks PLT 253 103/ul Normal 150-450 [facility] Comment on above: Performed By: #### M AG24 #### [facility] [address] [place] [address] Dr. Suzie Brooks RBC 5.19 106/ul Normal 4.70-6.10 The [facility] Comment on above: Performed By: #### M AG24 #### [facility] [address] [place] [address] Dr. Suzie Brooks WBC 14.2 103/ul Critically high 4.0-11.0 [facility] Comment on above: Performed By: #### M AG24 #### [facility] [address] [place] [address] Dr. Suzie Brooks CULTURE BLOODon 02-17-2022 Microscopic examination of blood, culture Culture Observations: NO GROWTH AT 5 DAYS. Normal [facility] Comment on above: Performed By: #### M AG24 #### [facility] [address] [place] [address] Dr. Suzie Brooks Microscopic examination of blood, culture Culture Observations: NO GROWTH AT 5 DAYS. Normal [facility] Comment on above: Performed By: #### M AG24 #### [facility] [address] [place] [address] Dr. Suzie Brooks ER URINE PROFILEon Bilirubin Ql (U) Negative Normal NEGATIVE [facility] Comment on above: Performed By: #### E RUR #### [facility] [address] [place] [address] Dr. Suzie Brooks Clarity (U) CLEAR Normal CLEAR [facility] Comment on above: Performed By: #### E RUR #### [facility] [address] [place] [address] Dr. Suzie Brooks Color (U) DK. YELLOW Normal YELLOW [facility] Comment on above: Performed By: #### E RUR #### [facility] [address] [place] [address] Dr. Suzie Brooks ERUAHD A micrscopic examina tion will be performed if indicated. Normal [facility] Comment on above: Performed By: #### E RUR #### [facility] [address] [place] [address] Dr. Suzie Brooks Glucose Ql (U) Negative Normal NEGATIVE [facility] Comment on above: Performed By: #### E RUR #### [facility] [address] [place] [address] Dr. Suzie Brooks Hemoglobin Ql (U) Negative Normal NEGATIVE [facility] Comment on above: Performed By: #### E RUR #### [facility] [address] [place] [address] Dr. Suzie Brooks Ketones Ql (U) Negative Normal NEGATIVE [facility] Comment on above: Performed By: #### E RUR #### [facility] [address] [place] [address] Dr. Suzie Brooks LEUKOCYTES Negative Normal NEGATIVE [facility] Comment on above: Performed By: #### E RUR #### [facility] [address] [place] [address] Dr. Suzie Brooks Nitrite Ql (U) Negative Normal NEGATIVE [facility] Comment on above: Performed By: #### E RUR #### [facility] [address] [place] [address] Dr. Suzie Brooks pH (U) 5.0 [pH] Normal 5-9 [facility] Comment on above: Performed By: #### E RUR #### [facility] [address] [place] [address] Dr. Suzie Brooks SPEC GRAVITY >=1.030 Abnormal 1.005-<=1.02 5 [facility] Comment on above: Performed By: #### E RUR #### [facility] [address] [place] [address] Dr. Suzie Brooks UA PROTEIN Negative Normal NEGATIVE/ TRACE [facility] Comment on above: Performed By: #### E RUR #### [facility] [address] [place] [address] Dr. Suzie Brooks UR MICRO IND NOT INDICATED Normal [facility] Comment on above: Performed By: #### E RUR #### [facility] [address] [place] [address] Dr. Suzie Brooks Urobilinogen Qn (U) 0.2 {Behzad'U}/dL Normal 0.2 - 1. 0 [facility] Comment on above: Performed By: #### E RUR #### [facility] [address] [place] [address] Dr. Suzie Brooks LACTATE/LACTIC ACIDon 2021 Lactate [Moles/Vol] 1.4 mmol/L Normal 0.4-1.9 [facility] Comment on above: Performed By: #### U DINA, LIPID, TSH, BNP, CMP, T7 #### [facility] [address] [place] [address] Dr. Suzie Brooks PROF CHEM 8 (BAS METB)on Anion gap [Moles/Vol] 12.2 mmol/L Normal [facility] Comment on above: Performed By: #### U DINA, LIPID, TSH, BNP, CMP, T7 #### [facility] [address] [address] [address] Suzie Brooks Calcium [Mass/Vol] 8.1 mg/dL Critically low 8.5-10.1 [facility] Comment on above: Performed By: #### U DINA, LIPID, TSH, BNP, CMP, T7 #### [facility] [address] [place] [address] Dr. Suzie Brooks Chloride [Moles/Vol] 103 mmol/L Normal 98-107 [facility] Comment on above: Performed By: #### U DINA, LIPID, TSH, BNP, CMP, T7 #### [facility] [address] [place] [address] Dr. Suzie Brooks CO2 [Moles/Vol] 26.1 mmol/L Normal 21.0-32.0 [facility] Comment on above: Performed By: #### U DINA, LIPID, TSH, BNP, CMP, T7 #### [facility] [address] [address] [address] Suzie Brooks Creatinine [Mass/Vol] 1.06 mg/dL Normal 0.70-1.30 [facility] Comment on above: Performed By: #### U DINA, LIPID, TSH, BNP, CMP, T7 #### [facility] [address] [place] [address] Dr. Suzie Brooks EGFR-AF LIBERIAN >60 Normal >=60 [facility] Comment on above: Performed By: #### U DINA, LIPID, TSH, BNP, CMP, T7 #### [facility] [address] [address] [address] Suzie Brooks EGFR-NON AF LIBERIAN >60 Normal >=60 [facility] Comment on above: Performed By: #### U DINA, LIPID, TSH, BNP, CMP, T7 #### [facility] [address] [place] [address] Dr. Suzie Brooks Glucose [Mass/Vol] 138 mg/dL Critically high 74-106 [facility] Comment on above: Performed By: #### U DINA, LIPID, TSH, BNP, CMP, T7 #### [facility] [address] [address] [address] Suzie Brooks Potassium [Moles/Vol] 4.3 mmol/L Normal 3.5-5.1 [facility] Comment on above: Performed By: #### U DINA, LIPID, TSH, BNP, CMP, T7 #### [facility] [address] [place] [address] Dr. Suzie Brooks Sodium [Moles/Vol] 137 mmol/L Normal 136-145 [facility] Comment on above: Performed By: #### U DINA, LIPID, TSH, BNP, CMP, T7 #### [facility] [address] [address] [address] Suzie Brooks Urea nitrogen [Mass/Vol] 14.0 mg/dL Normal 7.0-18.0 [facility] Comment on above: Performed By: #### U DINA, LIPID, TSH, BNP, CMP, T7 #### [facility] [address] [address] [address] Suzie Brooks Urea nitrogen/Creatinine [Mass ratio] 13.2 mg/mg Normal [facility] Comment on above: Performed By: #### U DINA, LIPID, TSH, BNP, CMP, T7 #### [facility] [address] [place] [address] Dr. Suzie Brooks TROPONIN, HIGH SENSITIVITYon 02-17-2022 HSTROP 8.4 pg/mL Normal 4.0-76.1 [facility] Comment on above: Result Comment: CUT- OFF POINTS HAVE BEEN ESTABLISHED BASED ON THE FOURTH UNIVERSAL DEFINITIONS OF MYOCARDIAL INFARCTION. THE UPPER REFERENCE LIMIT (URL) OF TROPONIN, DEFINED THE 99TH PERCENTILE OF cTnI DISTRIBUTION IN A REFERENCE POPULATION, HAS BEEN CONFIRMED THE DECISION THRESHOLD FOR NE DIAGNOSIS. Performed By: #### U DINA, LIPID, TSH, BNP, CMP, T7 #### [facility] [address] [place] [address] Dr. Suzie Brooks CBC AUTO DIFFon 02-16-2022 BASO # 0.1 103/ul Normal 0.0-0.1 [facility] Comment on above: Performed By: #### U DINA, LIPID, TSH, BNP, CMP, T7 #### [facility] [address] [place] [address] Dr. Suzie Brooks Basophils/100 WBC (Bld) 0.4 % Normal 0.2-2.0 [facility] Comment on above: Performed By: #### U DINA, LIPID, TSH, BNP, CMP, T7 #### [facility] [address] [place] [address] Dr. Suzie Brooks EO # 0.3 103/ul Normal 0.0-0.7 [facility] Comment on above: Performed By: #### U DINA, LIPID, TSH, BNP, CMP, T7 #### [facility] [address] [place] [address] Dr. Suzie Brooks Eosinophils/100 WBC (Bld) 2.5 % Normal 0.9-7.0 [facility] Comment on above: Performed By: #### U DINA, LIPID, TSH, BNP, CMP, T7 #### [facility] [address] [place] [address] Dr. Suzie Brooks Erythrocyte distribution width (RBC) [Ratio] 13.9 % Normal 11.0-15.0 [facility] Comment on above: Performed By: #### U DINA, LIPID, TSH, BNP, CMP, T7 #### [facility] [address] [place] [address] Dr. Suzie Brooks Hematocrit (Bld) [Volume fraction] 46.6 % Normal 42.0-54.0 [facility] Comment on above: Performed By: #### U DINA, LIPID, TSH, BNP, CMP, T7 #### [facility] [address] [place] [address] Dr. Suzie Brooks Hemoglobin (Bld) [Mass/Vol] 15.7 g/dL Normal 14.0-18.0 [facility] Comment on above: Performed By: #### U DINA, LIPID, TSH, BNP, CMP, T7 #### [facility] [address] [address] [address] Suzie Brooks IG # 0.05 10e3/ul Critically high 0.00-0.03 [facility] Comment on above: Performed By: #### U DINA, LIPID, TSH, BNP, CMP, T7 #### [facility] [address] [address] [address] Suzie Brooks IG % 0.4 % Normal 0.0-0.5 [facility] Comment on above: Performed By: #### U DINA, LIPID, TSH, BNP, CMP, T7 #### [facility] [address] [place] [address] Dr. Suzie Brooks LYMPH # 3.7 103/ul Normal 1.2-3.8 [facility] Comment on above: Performed By: #### U DINA, LIPID, TSH, BNP, CMP, T7 #### [facility] [address] [address] [address] Suzie Brooks Lymphocytes/100 WBC (Bld) 26.6 % Normal 20.5-60.0 [facility] Comment on above: Performed By: #### U DINA, LIPID, TSH, BNP, CMP, T7 #### [facility] [address] [address] [address] Suzie Brooks MANUAL DIFF REQ NO Normal [facility] Comment on above: Performed By: #### U DINA, LIPID, TSH, BNP, CMP, T7 #### [facility] [address] [address] [address] Suzie Brooks MCH (RBC) [Entitic mass] 29.2 pg Normal 25.9-34.0 [facility] Comment on above: Performed By: #### U DINA, LIPID, TSH, BNP, CMP, T7 #### [facility] [address] [place] [address] Dr. Suzie Brooks MCHC (RBC) [Mass/Vol] 33.7 g/dL Normal 29.9-35.2 [facility] Comment on above: Performed By: #### U DINA, LIPID, TSH, BNP, CMP, T7 #### [facility] [address] [place] [address] Dr. Suzie Brooks MCV (RBC) [Entitic vol] 86.6 fL Normal 80.0-94.0 [facility] Comment on above: Performed By: #### U DINA, LIPID, TSH, BNP, CMP, T7 #### [facility] [address] [place] [address] Dr. Suzie Brooks MONO # 1.0 103/ul Critically high 0.3-0.8 [facility] Comment on above: Performed By: #### U DINA, LIPID, TSH, BNP, CMP, T7 #### [facility] [address] [place] [address] Dr. Suzie Brooks Monocytes/100 WBC (Bld) 7.2 % Normal 1.7-12.0 [facility] Comment on above: Performed By: #### U DINA, LIPID, TSH, BNP, CMP, T7 #### [facility] [address] [place] [address] Dr. Suzie Brooks NEUT # 8.7 103/ul Critically high 1.4-6.5 [facility] Comment on above: Performed By: #### U DINA, LIPID, TSH, BNP, CMP, T7 #### [facility] [address] [place] [address] Dr. Suzie Brooks Neutrophils/100 WBC (Bld) 62.9 % Normal 43.0-75.0 [facility] Comment on above: Performed By: #### U DINA, LIPID, TSH, BNP, CMP, T7 #### [facility] [address] [place] [address] Dr. Suzie Brooks Platelet mean volume (Bld) [Entitic vol] 9.4 fL Critically low 9.5-13.5 [facility] Comment on above: Performed By: #### U DINA, LIPID, TSH, BNP, CMP, T7 #### [facility] [address] [place], [place] [address] Dr. Suzie Brooks PLT 277 103/ul Normal 150-450 [facility] Comment on above: Performed By: #### U DINA, LIPID, TSH, BNP, CMP, T7 #### [facility] [address] [place], [place] [address] Dr. Suzie Brooks RBC 5.38 106/ul Normal 4.70-6.10 [facility] Comment on above: Performed By: #### U DINA, LIPID, TSH, BNP, CMP, T7 #### [facility] [address] [place], [place] [address] Dr. Suzie Brooks WBC 13.8 103/ul Critically high 4.0-11.0 [facility] Comment on above: Performed By: #### U DINA, LIPID, TSH, BNP, CMP, T7 #### [facility] [address] [place], [place] [address] ABD/PELVIS WO CONon [...] Reilly CAST Date: 2022-02-16 20:51 Normal [facility] ER URINE PROFILEon 2 Bilirubin Ql (U) Negative Normal NEGATIVE [facility] Comment on above: Performed By: #### U DINA, LIPID, TSH, BNP, CMP, T7 #### [facility] [address] [place] [address] Dr. Suzie Brooks Clarity (U) CLEAR Normal CLEAR [facility] Comment on above: Performed By: #### U DINA, LIPID, TSH, BNP, CMP, T7 #### [facility] [address] [address] [address] Suzie Brooks Color (U) YELLOW Normal YELLOW [facility] Comment on above: Performed By: #### U DINA, LIPID, TSH, BNP, CMP, T7 #### [facility] [address] [address] [address] Suzie Brooks ERUAHD A micrscopic examina tion will be performed if indicated. Normal [facility] Comment on above: Performed By: #### U DINA, LIPID, TSH, BNP, CMP, T7 #### [facility] [address] [place] [address] Dr. Suzie Brooks Glucose Ql (U) Negative Normal NEGATIVE [facility] Comment on above: Performed By: #### U DINA, LIPID, TSH, BNP, CMP, T7 #### [facility] [address] [address] [address] Suzie Brooks Hemoglobin Ql (U) MODERATE Abnormal NEGATIVE [facility] Comment on above: Performed By: #### U DINA, LIPID, TSH, BNP, CMP, T7 #### [facility] [address] [address] [address] Suzie Brooks Ketones Ql (U) Negative Normal NEGATIVE [facility] Comment on above: Performed By: #### U DINA, LIPID, TSH, BNP, CMP, T7 #### [facility] [address] [address] [address] Suzie Brooks LEUKOCYTES Negative Normal NEGATIVE [facility] Comment on above: Performed By: #### U DINA, LIPID, TSH, BNP, CMP, T7 #### [facility] [address] [address] [address] Suzie Brooks Nitrite Ql (U) Negative Normal NEGATIVE [facility] Comment on above: Performed By: #### U DINA, LIPID, TSH, BNP, CMP, T7 #### [facility] [address] [address] [address] Suzie Brooks pH (U) 5.5 [pH] Normal 5-9 [facility] Comment on above: Performed By: #### U DINA, LIPID, TSH, BNP, CMP, T7 #### [facility] [address] [address] [address] Suzie Brooks SPEC GRAVITY >=1.030 Abnormal 1.005-<=1.02 5 [facility] Comment on above: Performed By: #### U DINA, LIPID, TSH, BNP, CMP, T7 #### [facility] [address] [address] [address] Suzie Brooks UA PROTEIN Negative Normal NEGATIVE/ TRACE [facility] Comment on above: Performed By: #### U DINA, LIPID, TSH, BNP, CMP, T7 #### [facility] [address] [address] [address] Suize Brooks UR MICRO IND INDICATED Normal [facility] Comment on above: Performed By: #### U DINA, LIPID, TSH, BNP, CMP, T7 #### [facility] [address] [address] [address] Suzie Brooks Urobilinogen Qn (U) 0.2 {Behzad'U}/dL Normal 0.2 - 1. 0 [facility] Comment on above: Performed By: #### U DINA, LIPID, TSH, BNP, CMP, T7 #### [facility] [address] [address] [address] Suzie Brooks PROF CHEM 8 (BAS METB)on Anion gap [Moles/Vol] 12.2 mmol/L Normal [facility] Comment on above: Performed By: #### U DINA, LIPID, TSH, BNP, CMP, T7 #### [facility] [address] [place] [address] Dr. Suzie Brooks Calcium [Mass/Vol] 8.5 mg/dL Normal 8.5-10.1 [facility] Comment on above: Performed By: #### U DINA, LIPID, TSH, BNP, CMP, T7 #### [facility] [address] [address] [address] Suzie Brooks Chloride [Moles/Vol] 104 mmol/L Normal 98-107 [facility] Comment on above: Performed By: #### U DINA, LIPID, TSH, BNP, CMP, T7 #### [facility] [address] [address] [address] Suzie Brooks CO2 [Moles/Vol] 24.1 mmol/L Normal 21.0-32.0 [facility] Comment on above: Performed By: #### U DINA, LIPID, TSH, BNP, CMP, T7 #### [facility] [address] [place] [address] Dr. Suzie Brooks Creatinine [Mass/Vol] 1.14 mg/dL Normal 0.70-1.30 [facility] Comment on above: Performed By: #### U DINA, LIPID, TSH, BNP, CMP, T7 #### [facility] [address] [address] [address] Suzie Brooks EGFR-AF LIBERIAN >60 Normal >=60 [facility] Comment on above: Performed By: #### U DINA, LIPID, TSH, BNP, CMP, T7 #### [facility] [address] [address] [address] Suzie Brooks EGFR-NON AF LIBERIAN >60 Normal >=60 [facility] Comment on above: Performed By: #### U DINA, LIPID, TSH, BNP, CMP, T7 #### [facility] [address] [address] [address] Suzie Brooks Glucose [Mass/Vol] 114 mg/dL Critically high 74-106 [facility] Comment on above: Performed By: #### U DINA, LIPID, TSH, BNP, CMP, T7 #### [facility] [address] [place] [address] Dr. Suzie Brooks Potassium [Moles/Vol] 4.3 mmol/L Normal 3.5-5.1 [facility] Comment on above: Performed By: #### U DINA, LIPID, TSH, BNP, CMP, T7 #### [facility] [address] [address] [address] Suzie Brooks Sodium [Moles/Vol] 136 mmol/L Normal 136-145 [facility] Comment on above: Performed By: #### U DINA, LIPID, TSH, BNP, CMP, T7 #### [facility] [address] [address] [address] Suzie Brooks Urea nitrogen [Mass/Vol] 14.0 mg/dL Normal 7.0-18.0 [facility] Comment on above: Performed By: #### U DINA, LIPID, TSH, BNP, CMP, T7 #### [facility] [address] [address] [address] Suzie Brooks Urea nitrogen/Creatinine [Mass ratio] 12.3 mg/mg Normal [facility] Comment on above: Performed By: #### U DINA, LIPID, TSH, BNP, CMP, T7 #### [facility] [address] [address] [address] Suzie Brooks URINE MICROSCOPIC ONLYon BACTERIA NONE SEEN Normal NONE SEEN [facility] Comment on above: Performed By: #### U DINA, LIPID, TSH, BNP, CMP, T7 #### [facility] [address] [address] [address] Suzie Brooks Bacteria identified Cx Nom (U) NOT INDICATED Normal [facility] Comment on above: Performed By: #### U DINA, LIPID, TSH, BNP, CMP, T7 #### [facility] [address] [address] [address] Suzie Brooks CAST NONE SEEN Normal NONE SEEN [facility] Comment on above: Performed By: #### U DINA, LIPID, TSH, BNP, CMP, T7 #### [facility] [address] [place] [address] Dr. Suzie Brooks Crystals LM Nom (Urine sed) NONE SEEN Normal NONE SEEN [facility] Comment on above: Performed By: #### U DINA, LIPID, TSH, BNP, CMP, T7 #### [facility] [address] [place] [address] Dr. Suzie Brooks Epithelial cells LM Ql (Urine sed) RARE Normal NONE SEEN /RARE [facility] Comment on above: Performed By: #### U DINA, LIPID, TSH, BNP, CMP, T7 #### [facility] [address] [place] [address] Dr. Suzie Brooks MUCOUS NONE SEEN Normal NONE SEEN [facility] Comment on above: Performed By: #### U DINA, LIPID, TSH, BNP, CMP, T7 #### [facility] [address] [place] [address] Dr. Suzie Brooks RBC 5-10 Abnormal 0-2 [facility] Comment on above: Performed By: #### U DINA, LIPID, TSH, BNP, CMP, T7 #### [facility] [address] [place] [address] Dr. Suzie Brooks WBC NONE SEEN Normal NONE SEEN [facility] Comment on above: Performed By: #### U DINA, LIPID, TSH, BNP, CMP, T7 #### [facility] [address] [place] [address] Dr. Suzie Brooks CITRATE URINE 24HRon 022 Citric Acid, U, 24hr 1312 mg/24 hr Critically high 320-124 0 [facility] Comment on above: Result Comment: This test was developed and its performance characteristics determined by [facility]. It has not been cleared or approved by the Food and Drug Administration. Performed By: #### U DINA, LIPID, TSH, BNP, CMP, T7 #### [facility] [address] [place] [address] Dr. Suzie Brooks Citric Acid, Urine 610 mg/L Normal Undefined [facility] Comment on above: Performed By: #### U DINA, LIPID, TSH, BNP, CMP, T7 #### [facility] [address] [place] [address] Dr. Suzie Brooks OXALATE 24HR URINEon 022 Oxalates, Urine 11 mg/L Normal Undefined [facility] Comment on above: Performed By: #### O X24HR #### [facility] [address] [place] [address] Dr. Suzie Brooks Oxalates, Urine 24hr 24 mg/24 hr Normal 7-44 [facility] Comment on above: Performed By: #### O X24HR #### [facility] [address] [place] [address] Dr. Suzie Brooks MAGNESIUM 24HR URINEon 02-02 Magnesium 24hr Urine 77.4 mg/24 hr Normal 12.0-293.0 [facility] Comment on above: Performed By: #### M AG24 #### [facility] [address] [place] [address] Dr. Suzie Brooks Magnesium UR 3.6 mg/dL Normal Not Estab. [facility] Comment on above: Performed By: #### M AG24 #### [facility] [address] [place] [address] Dr. Suzie Brooks PHOSPHORUS 24HR URINEon 01-10 Phosphorus, Urine 44.1 mg/dL Normal Not Estab. [facility] Comment on above: Performed By: #### U DINA, LIPID, TSH, BNP, CMP, T7 #### [facility] [address] [place], [place] [address] Dr. Suzie Brooks Phosphorus, Urine 24hr 948 mg/24 hr Normal 390-1425 [facility] Comment on above: Performed By: #### U DNIA, LIPID, TSH, BNP, CMP, T7 #### [facility] [address] [place], [place] [address] Dr. Suzie Brooks URIC ACID 24 HR URINEon 01-10 Uric Acid, Urine 35.4 mg/dL Normal Not Estab. [facility] Comment on above: Performed By: #### U DINA, LIPID, TSH, BNP, CMP, T7 #### [facility] [address] [address] [address] Suzie Brooks Uric Acid, Urine 24hr 761.1 mg/24 hr Normal 182.4-936.8 [facility] Comment on above: Performed By: #### U DINA, LIPID, TSH, BNP, CMP, T7 #### [facility] [address] [place] [address] Dr. Suzie Brooks CALCIUM 24 HR URINEon 2021 CALC, 24 HR UR 187.0 mg/24 hr Normal 100.0-300.0 [facility] Comment on above: Performed By: #### U DINA, LIPID, TSH, BNP, CMP, T7 #### [facility] [address] [place], [place] [id number] Dr. Suzie Brooks UR CALCIUM 8.7 mg/dL Normal 5.1-21.0 [facility] Comment on above: Performed By: #### U DINA, LIPID, TSH, BNP, CMP, T7 #### [facility] [address] [place], [place] [address] Dr. Suzie Brooks UR TOT VOL 2150 ml/24 HR Normal [facility] Comment on above: Performed By: #### U DINA, LIPID, TSH, BNP, CMP, T7 #### [facility] [address] [place], [place] [id number] Dr. Suzie Brooks CREA 24 HR URINEon CREA, 24 HR UR 1983.59 mg/24 hr Normal 1,000.00- 2,0 00.00 [facility] Comment on above: Performed By: #### U DINA, LIPID, TSH, BNP, CMP, T7 #### [facility] [address] [place] [address] [address] Suzie Brooks URINE CREAT 92.26 mg/dL Normal 20.00-300.00 [facility] [facility] Comment on above: Performed By: #### U DINA, LIPID, TSH, BNP, CMP, T7 #### [facility] [address] [place] [address] Dr. Suzie Brooks SODIUM 24 HR URINEon 022 NA, 24 HR UR 172 mmol/24 hr Normal 40-220 [facility] Comment on above: Performed By: #### U DINA, LIPID, TSH, BNP, CMP, T7 #### [facility] [address] [place] [address] Dr. Suzie Brooks Sodium (U) [Moles/Vol] 80 mmol/L Normal 30-90 [facility] Comment on above: Performed By: #### U DINA, LIPID, TSH, BNP, CMP, T7 #### [facility] [address] [place] [address] Dr. Suzie Brooks PTH INTACTon 01-31-2022 PTH, Intact 24 pg/mL Normal 15-65 [facility] Comment on above: Performed By: #### U DINA, LIPID, TSH, BNP, CMP, T7 #### [facility] [address] [place] [address] Dr. Suzie Brooks BUNon 01-30-2022 Urea nitrogen [Mass/Vol] 12.0 mg/dL Normal 7.0-18.0 [facility] Comment on above: Performed By: #### U DINA, LIPID, TSH, BNP, CMP, T7 #### [facility] [address] [place] [address] Dr. Suzie Brooks CALCIUMon 01-30-2022 Calcium [Mass/Vol] 8.6 mg/dL Normal 8.5-10.1 [facility] Comment on above: Performed By: #### U DNIA, LIPID, TSH, BNP, CMP, T7 #### [facility] [address] [place] [address] Dr. Suzie Brooks CHLORIDEon 01-30-2022 Chloride [Moles/Vol] 104 mmol/L Normal 98-107 [facility] Comment on above: Performed By: #### U DINA, LIPID, TSH, BNP, CMP, T7 #### [facility] [address] [place] [address] [address] Suzie Brooks CO2on 01-30-2022 CO2 [Moles/Vol] 29.3 mmol/L Normal 21.0-32.0 [facility] Comment on above: Performed By: #### U DINA, LIPID, TSH, BNP, CMP, T7 #### [facility] [address] [address] [address] Suzie Brooks CREATININEon 01-30-2022 Creatinine [Mass/Vol] 0.92 mg/dL Normal 0.70-1.30 [facility] Comment on above: Performed By: #### U DINA, LIPID, TSH, BNP, CMP, T7 #### [facility] [address] [address] [address] Suzie Brooks EGFR-AF LIBERIAN >60 Normal >=60 [facility] Comment on above: Performed By: #### U DINA, LIPID, TSH, BNP, CMP, T7 #### [facility] [address] [place] [address] [address] Suzie Brooks EGFR-NON AF LIBERIAN >60 Normal >=60 [facility] Comment on above: Performed By: #### U DINA, LIPID, TSH, BNP, CMP, T7 #### [facility] [address] [address] [address] Suzie Brooks NAon 01-30-2022 Sodium [Moles/Vol] 140 mmol/L Normal 136-145 [facility] Comment on above: Performed By: #### U DINA, LIPID, TSH, BNP, CMP, T7 #### [facility] [address] [address] [address] Suzie Brooks POTASSIUMon 01-30-2022 Potassium [Moles/Vol] 4.0 mmol/L Normal 3.5-5.1 [facility] Comment on above: Performed By: #### U DINA, LIPID, TSH, BNP, CMP, T7 #### [facility] [address] [place], [place] [address] Dr. Suzie Brooks URIC ACID SERUMon 01-30-2022 Urate [Mass/Vol] 5.2 mg/dL Normal 3.5-7.2 [facility] Comment on above: Performed By: #### U DINA, LIPID, TSH, BNP, CMP, T7 #### [facility] [address] [place], [place] [address] Dr. Suzie Brooks US KIDNEYSon 12-18-2021 US KIDNEYS EXAMINATION: [facility] HISTORY: Kidney stone ; right flank pain [...] BEHZAD CARRASQUILLO Date: 2021-12-18 09:51 Normal [facility] XR KUB 1 VIEWon 11-21-2021 XR [...] by: BEHZAD CARRASQUILLO Date: 2021-11-21 09:45 Normal [facility] XR KUBon 11-15-2021 XR KUB [facility] [address] [place], [place] [id number] XRay Report Signed Patient: Tom Aparicio MR#: [id number] 4 : 1950 Acct:[id number] Age/Sex: 71 / M ADM Date: 11/15/21 Loc: [place] Room: Type: [facility] Attending Dr: Miki Zeng MD Ordering Provider: [...] Hancock Jr., M.D.11/15/2021 10:43 AM Dictation Location: [place] [address] Transcribed By: [facility] 11/15/21 1043 Dictated By: Yared Hancock Jr, MD 11/15/21 1039 Signed By: 11/15/21 [address] [facility] COVID[facility]19 [facility] [place] SARS-CoV-2 (COVID-19) RNA SUKHJINDER+probe Ql (Unsp spec) Negative Normal Negative [facility] Comment on above: Order Comment: Healt hcare Worker?: N Result Comment: Testing for SARS-CoV-2 by RT-PCR This test was developed and its performance characteristics determined by [employer]) and validated at the [facility]. This test has not been FDA cleared [...] is terminated or revoked sooner. PERFORMED BY: [place] [address] PATHOLOGIST FOREIGN TRADE TEACHER JIA MINAYA M.D. Performed By: #### C OVID 19 [facility] #### [address] COVID-19 Positive/NegativeOr dered By: Miki Zeng on 11-13-2021 SARS-CoV-2 (COVID-19) N gene SUKHJINDER+probe Ql (Resp) Negative Negative [facility] Comment on above: Testing for SARS-CoV -2 by RT-PCRThis test was developed and its performance characteristics determined by [employer] ([employer]) and validated at the [facility]. This test has not been FDA cleared [...] sooner. CALCULI, URINARYon 2 2,8 Dihydroxyadenine Normal [facility] Comment on above: Performed By: #### U DINA, LIPID, TSH, BNP, CMP, T7 #### [facility] [address] [place] [address] [address] Suzie Brooks Ammonium Acid Urate Normal [facility] Comment on above: Performed By: #### U DINA, LIPID, TSH, BNP, CMP, T7 #### [facility] [address] [place] [address] [address] Suize Brooks Bilirubin Ql (U) [facility] Comment on above: Performed By: #### U DINA, LIPID, TSH, BNP, CMP, T7 #### [facility] [address] [place] [address] [address] Suzie Brooks Ca Oxalate Dihydrate [facility] Comment on above: Performed By: #### U DINA, LIPID, TSH, BNP, CMP, T7 #### [facility] [address] [place] [address] [address] Suzie Brooks CaHPO4 (Brushite) [facility] Comment on above: Performed By: #### U DINA, LIPID, TSH, BNP, CMP, T7 #### [facility] [address] [place] [address] [address] Suzie Brooks Calcium Bilirubinate [facility] Comment on above: Performed By: #### U DINA, LIPID, TSH, BNP, CMP, T7 #### [facility] [address] [place] [address] [address] Suzie Brooks Calcium Carbonate Normal [facility] Comment on above: Performed By: #### U DINA, LIPID, TSH, BNP, CMP, T7 #### [facility] [address] [place] [address] [address] Suzie Brooks Calcium Oxalate Monohydrate 70 % [facility] Comment on above: Performed By: #### U DINA, LIPID, TSH, BNP, CMP, T7 #### [facility] [address] [place] [address] [address] Suzie Brooks Calcium Palmitate [facility] Comment on above: Performed By: #### U DINA, LIPID, TSH, BNP, CMP, T7 #### [facility] [address] [place] [address] [address] Suzie Brooks Calcium Phosphate Normal [facility] Comment on above: Performed By: #### U DINA, LIPID, TSH, BNP, CMP, T7 #### [facility] [address] [place] [address] [address] Suzie Brooks Calcium Stearate Normal [facility] Comment on above: Performed By: #### U DINA, LIPID, TSH, BNP, CMP, T7 #### [facility] [address] [place] [address] [address] Suzie Brooks Carbonate Apatite Normal [facility] Comment on above: Performed By: #### U DINA, LIPID, TSH, BNP, CMP, T7 #### [facility] [address] [place] [address] [address] Suzie Brooks Cellular Material Normal [facility] Comment on above: Performed By: #### U DINA, LIPID, TSH, BNP, CMP, T7 #### [facility] [address] [place] [address] [address] Suzie Brooks Cholesterol Normal [facility] Comment on above: Performed By: #### U DINA, LIPID, TSH, BNP, CMP, T7 #### [facility] [address] [place] [address] [address] Suzie Brooks Color (U) Brown Normal [facility] Comment on above: Performed By: #### U DINA, LIPID, TSH, BNP, CMP, T7 #### [facility] [address] [place] [address] [address] Suzie Brooks Comment Normal [facility] Comment on above: Performed By: #### U DINA, LIPID, TSH, BNP, CMP, T7 #### [facility] [address] [place] [address] [address] Suzie Brooks Comment: Comment Normal [facility] Comment on above: Result Comment: Fantasma baez questions regarding Calculi Analysis contact [facility] at: [phone]. Performed By: #### U DINA, LIPID, TSH, BNP, CMP, T7 #### [facility] [address] [place] [address] [address] Suzie Brooks Composition Comment Normal [facility] Comment on above: Result Comment: Perc entage (Represents the % composition) Performed By: #### U DINA, LIPID, TSH, BNP, CMP, T7 #### [facility] [address] [place] [address] [address] Suzie Brooks Cystine Normal [facility] Comment on above: Performed By: #### U DINA, LIPID, TSH, BNP, CMP, T7 #### [facility] [address] [place] [address] [address] Suzie Brooks Disclaimer: Comment Normal [facility] Comment on above: Result Comment: This test was developed and its performance characteristics determined by [employer]. It has not been cleared or approved by the Food and Drug Administration. Performed By: #### U DINA, LIPID, TSH, BNP, CMP, T7 #### [facility] [address] [place] [address] Dr. Suzie Brooks Dried Blood Normal [facility] Comment on above: Performed By: #### U DINA, LIPID, TSH, BNP, CMP, T7 #### [facility] [address] [place] [address] [address] Suzie Brooks Drug or Metabolite Normal [facility] Comment on above: Performed By: #### U DINA, LIPID, TSH, BNP, CMP, T7 #### [facility] [address] [place] [address] [address] Suzie Brooks Hydroxyapatite Normal [facility] Comment on above: Performed By: #### U DINA, LIPID, TSH, BNP, CMP, T7 #### [facility] [address] [place] [address] [address] Suzie Brooks Mg NH4 PO4 (Struvite) [facility] Comment on above: Performed By: #### U DINA, LIPID, TSH, BNP, CMP, T7 #### [facility] [address] [place] [address] [address] Suzie Brooks MgHPO4 (Newberyite) Normal [facility] Comment on above: Performed By: #### U DINA, LIPID, TSH, BNP, CMP, T7 #### [facility] [address] [address] [address] Suzie Brooks Other component(s) Normal [facility] Comment on above: Performed By: #### U DINA, LIPID, TSH, BNP, CMP, T7 #### [facility] [address] [address] [address] Suzie Brooks PDF . Normal [facility] Comment on above: Performed By: #### U DINA, LIPID, TSH, BNP, CMP, T7 #### [facility] [address] [place] [address] [address] Suzie Brooks Photo Comment [facility] Comment on above: Result Comment: Phot ograph will follow under a separate cover Performed By: #### U DINA, LIPID, TSH, BNP, CMP, T7 #### [facility] [address] [place] [address] [address] Suzie Brooks Please note: Comment Normal [facility] Comment on above: Result Comment: Calc shamika report will follow via computer, mail or senior instructor delivery. Performed By: #### U DINA, LIPID, TSH, BNP, CMP, T7 #### [facility] [address] [place] [address] [address] Suzie Brooks Size 3x2 [facility] Comment on above: Result Comment: Mult iple pieces received. Dimensions of the largest piece reported. Performed By: #### U DINA, LIPID, TSH, BNP, CMP, T7 #### [facility] [address] [place] [address] [address] Suzie Brooks Sodium Acid Urate Normal [facility] Comment on above: Performed By: #### U DINA, LIPID, TSH, BNP, CMP, T7 #### [facility] [address] [place] [address] [address] Suzie Brooks Source Comment [facility] Comment on above: Result Comment: Jessica Reese Performed By: #### U DINA, LIPID, TSH, BNP, CMP, T7 #### [facility] [address] [place] [address] [address] Suzie Brooks Triamterene [facility] Comment on above: Performed By: #### U DINA, LIPID, TSH, BNP, CMP, T7 #### [facility] [address] [place], [place] [address] Dr. Suzie Brooks Uric Acid 30 % Normal [facility] Comment on above: Performed By: #### U DINA, LIPID, TSH, BNP, CMP, T7 #### [facility] [address] [place], [place] [address] Dr. Suzie Brooks Uric Acid Dihydrate Normal [facility] Comment on above: Performed By: #### U DINA, LIPID, TSH, BNP, CMP, T7 #### [facility] [address] [place], [place] [address] Dr. Suzie Brooks Weight 12 mg Normal [facility] Comment on above: Performed By: #### U DINA, LIPID, TSH, BNP, CMP, T7 #### [facility] [address] [place], [place] [address] Dr. Suzie Brooks Xanthine Normal [facility] Comment on above: Performed By: #### U DINA, LIPID, TSH, BNP, CMP, T7 #### [facility] [address] [place], [place] [address] Dr. Suzie Brooks XR KUB 1 VIEWon [...] by: RAFAEL GRAVES Date: 2021-11-12 13:18 Normal [facility] XR CHEST 2 Von 11-08-2021 XR [...] CARLOS GROSS Date: 2021-11-08 15:50 Normal [facility] CBC AUTO DIFFon 11-07-2021 BASO # 0.0 103/ul Normal 0.0-0.1 [facility] Comment on above: Performed By: #### U DINA, LIPID, TSH, BNP, CMP, T7 #### [facility] [address] [place] [address] Dr. Suzie Brooks Basophils/100 WBC (Bld) 0.2 % Normal 0.2-2.0 [facility] Comment on above: Performed By: #### U DINA, LIPID, TSH, BNP, CMP, T7 #### [facility] [address] [place] [address] Dr. Suzie Brooks EO # 0.0 103/ul Normal 0.0-0.7 [facility] Comment on above: Performed By: #### U DINA, LIPID, TSH, BNP, CMP, T7 #### [facility] [address] [place] [address] Dr. Suzie Brooks Eosinophils/100 WBC (Bld) 0.0 % Critically low 0.9-7.0 [facility] Comment on above: Performed By: #### U DINA, LIPID, TSH, BNP, CMP, T7 #### [facility] [address] [place] [address] Dr. Suzie Brooks Erythrocyte distribution width (RBC) [Ratio] 14.0 % Normal 11.0-15.0 [facility] Comment on above: Performed By: #### U DINA, LIPID, TSH, BNP, CMP, T7 #### [facility] [address] [place] [address] Dr. Suzie Brooks Hematocrit (Bld) [Volume fraction] 41.8 % Critically low 42.0-54.0 [facility] Comment on above: Performed By: #### U DINA, LIPID, TSH, BNP, CMP, T7 #### [facility] [address] [place] [address] [address] Suzie Brooks Hemoglobin (Bld) [Mass/Vol] 13.7 g/dL Critically low 14.0-18.0 [facility] Comment on above: Performed By: #### U DINA, LIPID, TSH, BNP, CMP, T7 #### [facility] [address] [place] [address] Dr. Suzie Brooks IG # 0.14 10e3/ul Critically high 0.00-0.03 [facility] Comment on above: Performed By: #### U DINA, LIPID, TSH, BNP, CMP, T7 #### [facility] [address] [place] [address] Dr. Suzie Brooks IG % 0.9 % Critically high 0.0-0.5 [facility] Comment on above: Performed By: #### U DINA, LIPID, TSH, BNP, CMP, T7 #### [facility] [address] [place] [address] Dr. Suzie Brooks LYMPH # 1.6 103/ul Normal 1.2-3.8 [facility] Comment on above: Performed By: #### U DINA, LIPID, TSH, BNP, CMP, T7 #### [facility] [address] [place] [address] Dr. Suzie Brooks Lymphocytes/100 WBC (Bld) 10.2 % Critically low 20.5-60.0 [facility] Comment on above: Performed By: #### U DINA, LIPID, TSH, BNP, CMP, T7 #### [facility] [address] [place] [address] Dr. Suzie Brooks MANUAL DIFF REQ NO Normal [facility] Comment on above: Performed By: #### U DINA, LIPID, TSH, BNP, CMP, T7 #### [facility] [address] [place] [address] Dr. Suzie Brooks MCH (RBC) [Entitic mass] 28.8 pg Normal 25.9-34.0 [facility] Comment on above: Performed By: #### U DINA, LIPID, TSH, BNP, CMP, T7 #### [facility] [address] [place] [address] Dr. Suzie Brooks MCHC (RBC) [Mass/Vol] 32.8 g/dL Normal 29.9-35.2 [facility] Comment on above: Performed By: #### U DINA, LIPID, TSH, BNP, CMP, T7 #### [facility] [address] [place] [address] [address] Suzie Brooks MCV (RBC) [Entitic vol] 87.8 fL Normal 80.0-94.0 [facility] Comment on above: Performed By: #### U DINA, LIPID, TSH, BNP, CMP, T7 #### [facility] [address] [place] [address] [address] Suzie Brooks MONO # 1.0 103/ul Critically high 0.3-0.8 [facility] Comment on above: Performed By: #### U DINA, LIPID, TSH, BNP, CMP, T7 #### [facility] [address] [place] [address] [address] Suzie Brooks Monocytes/100 WBC (Bld) 6.6 % Normal 1.7-12.0 [facility] Comment on above: Performed By: #### U DINA, LIPID, TSH, BNP, CMP, T7 #### [facility] [address] [place] [address] [address] Suzie Brooks NEUT # 13.0 103/ul Critically high 1.4-6.5 [facility] Comment on above: Performed By: #### U DINA, LIPID, TSH, BNP, CMP, T7 #### [facility] [address] [place] [address] [address] Suzie Brooks Neutrophils/100 WBC (Bld) 82.1 % Critically high 43.0-75.0 [facility] Comment on above: Performed By: #### U DINA, LIPID, TSH, BNP, CMP, T7 #### [facility] [address] [place] [address] Dr. Suzie Brooks Platelet mean volume (Bld) [Entitic vol] 9.3 fL Critically low 9.5-13.5 [facility] Comment on above: Performed By: #### U DINA, LIPID, TSH, BNP, CMP, T7 #### [facility] [address] [place] [address] [address] Suzie Brooks PLT 301 103/ul Normal 150-450 [facility] Comment on above: Performed By: #### U DINA, LIPID, TSH, BNP, CMP, T7 #### [facility] [address] [place] [address] [address] Suzie Brooks RBC 4.76 106/ul Normal 4.70-6.10 [facility] Comment on above: Performed By: #### U DINA, LIPID, TSH, BNP, CMP, T7 #### [facility] [address] [place] [address] Dr. Suzie Brooks WBC 15.9 103/ul Critically high 4.0-11.0 [facility] Comment on above: Performed By: #### U DINA, LIPID, TSH, BNP, CMP, T7 #### [facility] [address] [place] [address] Dr. Suzie Brooks POINT OF CARE GLUCOSEon 10-11 Glucose [Mass/Vol] 128 mg/dL Critically high 74-106 [facility] Comment on above: Performed By: #### U DINA, LIPID, TSH, BNP, CMP, T7 #### [facility] [address] [place] [address] Dr. Suzie Brooks PROF 14(COMP METB)on 022 Albumin [Mass/Vol] 3.1 g/dL Critically low 3.4-5.0 [facility] Comment on above: Performed By: #### M AG24 #### [facility] [address] [place] [address] Dr. Suzie Brooks Albumin/Globulin [Mass ratio] 0.9 {ratio} Normal [facility] Comment on above: Performed By: #### M AG24 #### [facility] [address] [place] [address] Dr. Suzie Brooks ALP [Catalytic activity/Vol] 52 U/L Normal 46-116 [facility] Comment on above: Performed By: #### M AG24 #### [facility] [address] [place] [address] Dr. Suzie Brooks ALT [Catalytic activity/Vol] 39 U/L Normal 16-63 [facility] Comment on above: Performed By: #### M AG24 #### [facility] [address] [place] [address] Dr. Suzie Brooks Anion gap [Moles/Vol] 14.7 mmol/L Normal [facility] Comment on above: Performed By: #### M AG24 #### [facility] [address] [place] [address] Dr. Suzie Brooks AST [Catalytic activity/Vol] 27 U/L Normal 15-37 [facility] Comment on above: Performed By: #### M AG24 #### [facility] [address] [place] [address] Dr. Suzie Brooks Bilirubin [Mass/Vol] 0.4 mg/dL Normal 0.2-1.3 [facility] Comment on above: Performed By: #### M AG24 #### [facility] [address] [place] [address] Dr. Suzie Brooks Calcium [Mass/Vol] 7.7 mg/dL Critically low 8.5-10.1 [facility] Comment on above: Performed By: #### M AG24 #### [facility] [address] [place] [address] Dr. Suzie Brooks Chloride [Moles/Vol] 104 mmol/L Normal 98-107 [facility] Comment on above: Performed By: #### M AG24 #### [facility] [address] [place] [address] Dr. Suzie Brooks CO2 [Moles/Vol] 23.4 mmol/L Normal 22.0-30.0 [facility] Comment on above: Performed By: #### M AG24 #### [facility] [address] [place] [address] Dr. Suzie Brooks Creatinine [Mass/Vol] 1.03 mg/dL Normal 0.66-1.25 [facility] Comment on above: Performed By: #### M AG24 #### [facility] [address] [place] [address] Dr. Suzie Brooks EGFR-AF LIBERIAN >60 Normal >=60 [facility] Comment on above: Performed By: #### M AG24 #### [facility] [address] [place] [address] [address] Suzie Brooks EGFR-NON AF LIBERIAN >60 Normal >=60 [facility] Comment on above: Performed By: #### M AG24 #### [facility] [address] [place] [address] [address] Suzie Brooks Globulin (S) [Mass/Vol] 3.5 g/dL Normal [facility] Comment on above: Performed By: #### M AG24 #### [facility] [address] [place] [address] [address] Suzie Brooks Glucose [Mass/Vol] 142 mg/dL Critically high 74-106 [facility] Comment on above: Performed By: #### M AG24 #### [facility] [address] [place] [address] [address] Suzie Brooks Potassium [Moles/Vol] 4.1 mmol/L Normal 3.4-5.0 [facility] Comment on above: Performed By: #### M AG24 #### [facility] [address] [place] [address] [address] Suzie Brooks Protein [Mass/Vol] 6.6 g/dL Normal 6.1-8.2 [facility] Comment on above: Performed By: #### M AG24 #### [facility] [address] [place] [address] [address] Suzie Brooks Sodium [Moles/Vol] 138 mmol/L Normal 137-145 [facility] Comment on above: Performed By: #### M AG24 #### [facility] [address] [place] [address] [address] Suzie Brooks Urea nitrogen [Mass/Vol] 15.0 mg/dL Normal 7.0-18.0 [facility] Comment on above: Performed By: #### M AG24 #### [facility] [address] [place] [address] [address] Suzie Brooks Urea nitrogen/Creatinine [Mass ratio] 14.6 mg/mg Normal [facility] Comment on above: Performed By: #### M AG24 #### [facility] [address] [place] [address] [address] Suzie Brooks CBC AUTO DIFFon 11-06-2021 BASO # 0.1 103/ul Normal 0.0-0.1 [facility] Comment on above: Performed By: #### U DINA, LIPID, TSH, BNP, CMP, T7 #### [facility] [address] [place] [address] Dr. Suzie Brooks Basophils/100 WBC (Bld) 0.5 % Normal 0.2-2.0 [facility] Comment on above: Performed By: #### U DINA, LIPID, TSH, BNP, CMP, T7 #### [facility] [address] [place] [address] Dr. Suzie Brooks EO # 0.3 103/ul Normal 0.0-0.7 [facility] Comment on above: Performed By: #### U DINA, LIPID, TSH, BNP, CMP, T7 #### [facility] [address] [place] [address] Dr. Suzei Brooks Eosinophils/100 WBC (Bld) 2.1 % Normal 0.9-7.0 [facility] Comment on above: Performed By: #### U DINA, LIPID, TSH, BNP, CMP, T7 #### [facility] [address] [place] [address] Dr. Suzie Brooks Erythrocyte distribution width (RBC) [Ratio] 13.8 % Normal 11.0-15.0 [facility] Comment on above: Performed By: #### U DINA, LIPID, TSH, BNP, CMP, T7 #### [facility] [address] [place] [address] Dr. Suzie Brooks Hematocrit (Bld) [Volume fraction] 46.9 % Normal 42.0-54.0 [facility] Comment on above: Performed By: #### U DINA, LIPID, TSH, BNP, CMP, T7 #### [facility] [address] [place] [address] Dr. Suzie Brooks Hemoglobin (Bld) [Mass/Vol] 15.4 g/dL Normal 14.0-18.0 [facility] Comment on above: Performed By: #### U DINA, LIPID, TSH, BNP, CMP, T7 #### [facility] [address] [place] [address] Dr. Suzie Brooks IG # 0.05 10e3/ul Critically high 0.00-0.03 [facility] Comment on above: Performed By: #### U DINA, LIPID, TSH, BNP, CMP, T7 #### [facility] [address] [place] [address] Dr. Suzie Brooks IG % 0.4 % Normal 0.0-0.5 [facility] Comment on above: Performed By: #### U DINA, LIPID, TSH, BNP, CMP, T7 #### [facility] [address] [place] [address] Dr. Suzie Brooks LYMPH # 2.8 103/ul Normal 1.2-3.8 [facility] Comment on above: Performed By: #### U DINA, LIPID, TSH, BNP, CMP, T7 #### [facility] [address] [place] [address] Dr. Suzie Brooks Lymphocytes/100 WBC (Bld) 22.5 % Normal 20.5-60.0 [facility] Comment on above: Performed By: #### U DINA, LIPID, TSH, BNP, CMP, T7 #### [facility] [address] [place] [address] Dr. Suzie Brooks MANUAL DIFF REQ NO Normal [facility] Comment on above: Performed By: #### U DINA, LIPID, TSH, BNP, CMP, T7 #### [facility] [address] [place] [address] Dr. Suzie Brooks MCH (RBC) [Entitic mass] 28.6 pg Normal 25.9-34.0 [facility] Comment on above: Performed By: #### U DINA, LIPID, TSH, BNP, CMP, T7 #### [facility] [address] [place] [address] Dr. Suzie Brooks MCHC (RBC) [Mass/Vol] 32.8 g/dL Normal 29.9-35.2 [facility] Comment on above: Performed By: #### U DINA, LIPID, TSH, BNP, CMP, T7 #### [facility] [address] [place] [address] Dr. Suzie Brooks MCV (RBC) [Entitic vol] 87.0 fL Normal 80.0-94.0 [facility] Comment on above: Performed By: #### U DINA, LIPID, TSH, BNP, CMP, T7 #### [facility] [address] [address] [address] Suzie Brooks MONO # 0.9 103/ul Critically high 0.3-0.8 [facility] Comment on above: Performed By: #### U DINA, LIPID, TSH, BNP, CMP, T7 #### [facility] [address] [place] [address] Dr. Suzie Brooks Monocytes/100 WBC (Bld) 6.9 % Normal 1.7-12.0 [facility] Comment on above: Performed By: #### U DINA, LIPID, TSH, BNP, CMP, T7 #### [facility] [address] [place] [address] Dr. Suzie Brooks NEUT # 8.4 103/ul Critically high 1.4-6.5 [facility] Comment on above: Performed By: #### U DINA, LIPID, TSH, BNP, CMP, T7 #### [facility] [address] [place] [address] Dr. Suzie Brooks Neutrophils/100 WBC (Bld) 67.6 % Normal 43.0-75.0 [facility] Comment on above: Performed By: #### U DINA, LIPID, TSH, BNP, CMP, T7 #### [facility] [address] [place] [address] Dr. Suzie Brooks Platelet mean volume (Bld) [Entitic vol] 9.6 fL Normal 9.5-13.5 [facility] Comment on above: Performed By: #### U DINA, LIPID, TSH, BNP, CMP, T7 #### [facility] [address] [place] [address] Dr. Suzie Brooks PLT 284 103/ul Normal 150-450 [facility] Comment on above: Performed By: #### U DINA, LIPID, TSH, BNP, CMP, T7 #### [facility] [address] [place] [address] Dr. Suzie Brooks RBC 5.39 106/ul Normal 4.70-6.10 [facility] Comment on above: Performed By: #### U DINA, LIPID, TSH, BNP, CMP, T7 #### [facility] [address] [place] [address] Dr. Suzie Brooks WBC 12.5 103/ul Critically high 4.0-11.0 [facility] Comment on above: Performed By: #### U DINA, LIPID, TSH, BNP, CMP, T7 #### [facility] [address] [place] [address] Dr. Suzie Brooks CULTURE BLOODon 11-06-2021 Microscopic examination of blood, culture Culture Observations: NO GROWTH AT 5 DAYS. Normal [facility] Comment on above: Performed By: #### M AG24 #### [facility] [address] [place] [address] Dr. Suzie Brooks CULTURE URINEon 11-06-2021 CULTURE URINE Culture Observations : NO GROWTH. Normal [facility] Comment on above: Performed By: #### M AG24 #### [facility] [address] [place] [address] Dr. Suzie Brooks [facility] SARS-CoV-2 (COVID-19) RNA SUKHJINDER+probe Ql (Unsp spec) Not detected Normal NOT DETECTED [facility] Comment on above: Result Comment: When diagnostic testing is negative, the possibility of a false negative should be considered in the context of a patient's recent exposures and the presence of clinical signs and symptoms consistent with SARS-CoV-2. This test is not yet approved or cleared by the [place] Food and Drug Administration (FDA). This test was developed by [employer], [place], [place]. The performance characteristics of this test were validated by [facility]. The results are not intended to be used as the sole means for clinical diagnosis or patient management decisions. [facility] is authorized under Clinical Laboratory Improvement [...] for this test is supported by the [employer] of Health and Human Service's declaration that [...] DINA, LIPID, TSH, BNP, CMP, T7 #### [facility] [address] [place] [address] Dr. Suzie Brooks ER URINE PROFILEon 2 Bilirubin Ql (U) Negative Normal NEGATIVE [facility] Comment on above: Performed By: #### U DINA, LIPID, TSH, BNP, CMP, T7 #### [facility] [address] [place] [address] Dr. Suzie Brooks Clarity (U) CLEAR Normal CLEAR [facility] Comment on above: Performed By: #### U DINA, LIPID, TSH, BNP, CMP, T7 #### [facility] [address] [place] [address] Dr. Suzie Brooks Color (U) YELLOW Normal YELLOW [facility] Comment on above: Performed By: #### U DINA, LIPID, TSH, BNP, CMP, T7 #### [facility] [address] [place] [address] Dr. Suzie Brooks ERUAHD A micrscopic examina tion will be performed if indicated. Normal [facility] Comment on above: Performed By: #### U DINA, LIPID, TSH, BNP, CMP, T7 #### [facility] [address] [place] [address] Dr. Suzie Brooks Glucose Ql (U) Negative Normal NEGATIVE [facility] Comment on above: Performed By: #### U DINA, LIPID, TSH, BNP, CMP, T7 #### [facility] [address] [address] [address] Suzie Brooks Hemoglobin Ql (U) LARGE Abnormal NEGATIVE [facility] Comment on above: Performed By: #### U DINA, LIPID, TSH, BNP, CMP, T7 #### [facility] [address] [address] [address] Suzie Brooks Ketones Ql (U) Negative Normal NEGATIVE [facility] Comment on above: Performed By: #### U DINA, LIPID, TSH, BNP, CMP, T7 #### [facility] [address] [address] [address] Suzie Brooks LEUKOCYTES TRACE Abnormal NEGATIVE [facility] Comment on above: Performed By: #### U DINA, LIPID, TSH, BNP, CMP, T7 #### [facility] [address] [place] [address] Dr. Suzie Brooks Nitrite Ql (U) Negative Normal NEGATIVE [facility] Comment on above: Performed By: #### U DINA, LIPID, TSH, BNP, CMP, T7 #### [facility] [address] [place] [address] Dr. Suzie Brooks pH (U) 5.0 [pH] Normal 5-9 [facility] Comment on above: Performed By: #### U DINA, LIPID, TSH, BNP, CMP, T7 #### [facility] [address] [address] [address] Suzie Brooks Protein (U) [Mass/Vol] 100 mg/dL Abnormal NEGATIVE/ TRACE [facility] Comment on above: Performed By: #### U DINA, LIPID, TSH, BNP, CMP, T7 #### [facility] [address] [place] [address] Dr. Suzie Brooks SPEC GRAVITY 1.030 Abnormal 1.005-<=1.02 5 [facility] Comment on above: Performed By: #### U DINA, LIPID, TSH, BNP, CMP, T7 #### [facility] [address] [place] [address] Dr. Suzie Brooks UR MICRO IND INDICATED Normal [facility] Comment on above: Performed By: #### U DINA, LIPID, TSH, BNP, CMP, T7 #### [facility] [address] [address] [address] Suzie Brooks Urobilinogen Qn (U) 0.2 {Behzad'U}/dL Normal 0.2 - 1. 0 [facility] Comment on above: Performed By: #### U DINA, LIPID, TSH, BNP, CMP, T7 #### [facility] [address] [address] [address] Suzie Brooks LACTATE/LACTIC ACIDon 2021 Lactate [Moles/Vol] 1.0 mmol/L Normal 0.7-2.0 [facility] Comment on above: Performed By: #### U DINA, LIPID, TSH, BNP, CMP, T7 #### [facility] [address] [place] [address] Dr. Suzie Brooks PROF 14(COMP METB)on 022 Albumin [Mass/Vol] 3.8 g/dL Normal 3.4-5.0 [facility] Comment on above: Performed By: #### U DINA, LIPID, TSH, BNP, CMP, T7 #### [facility] [address] [address] [address] Suzie Brooks Albumin/Globulin [Mass ratio] 1.0 {ratio} Normal [facility] Comment on above: Performed By: #### U DINA, LIPID, TSH, BNP, CMP, T7 #### [facility] [address] [address] [address] Suzie Brooks ALP [Catalytic activity/Vol] 66 U/L Normal 46-116 [facility] Comment on above: Performed By: #### U DINA, LIPID, TSH, BNP, CMP, T7 #### [facility] [address] [address] [address] Suzie Brooks ALT [Catalytic activity/Vol] 52 U/L Normal 16-63 [facility] Comment on above: Performed By: #### U DINA, LIPID, TSH, BNP, CMP, T7 #### [facility] [address] [address] [address] Suzie Brooks Anion gap [Moles/Vol] 14.7 mmol/L Normal [facility] Comment on above: Performed By: #### U DINA, LIPID, TSH, BNP, CMP, T7 #### [facility] [address] [address] [address] Suzie Brooks AST [Catalytic activity/Vol] 40 U/L Critically high 15-37 [facility] Comment on above: Performed By: #### U DINA, LIPID, TSH, BNP, CMP, T7 #### [facility] [address] [address] [address] Suzie Brooks Bilirubin [Mass/Vol] 0.6 mg/dL Normal 0.2-1.3 [facility] Comment on above: Performed By: #### U DINA, LIPID, TSH, BNP, CMP, T7 #### [facility] [address] [address] [address] Suzie Brooks Calcium [Mass/Vol] 8.2 mg/dL Critically low 8.5-10.1 [facility] Comment on above: Performed By: #### U DINA, LIPID, TSH, BNP, CMP, T7 #### [facility] [address] [address] [address] Suzie Brooks Chloride [Moles/Vol] 102 mmol/L Normal 98-107 [facility] Comment on above: Performed By: #### U DINA, LIPID, TSH, BNP, CMP, T7 #### [facility] [address] [address] [address] Suzie Brooks CO2 [Moles/Vol] 27.4 mmol/L Normal 22.0-30.0 [facility] Comment on above: Performed By: #### U DINA, LIPID, TSH, BNP, CMP, T7 #### [facility] [address] [address] [address] Suzie Brooks Creatinine [Mass/Vol] 1.05 mg/dL Normal 0.66-1.25 [facility] Comment on above: Performed By: #### U DINA, LIPID, TSH, BNP, CMP, T7 #### [facility] [address] [address] [address] Suzie Brooks EGFR-AF LIBERIAN >60 Normal >=60 [facility] Comment on above: Performed By: #### U DINA, LIPID, TSH, BNP, CMP, T7 #### [facility] [address] [address] [address] Suzie Brooks EGFR-NON AF LIBERIAN >60 Normal >=60 [facility] Comment on above: Performed By: #### U DINA, LIPID, TSH, BNP, CMP, T7 #### [facility] [address] [address] [address] Suzie Brooks Globulin (S) [Mass/Vol] 3.7 g/dL Normal [facility] Comment on above: Performed By: #### U DINA, LIPID, TSH, BNP, CMP, T7 #### [facility] [address] [address] [address] Suzie Brooks Glucose [Mass/Vol] 124 mg/dL Critically high 74-106 [facility] Comment on above: Performed By: #### U DINA, LIPID, TSH, BNP, CMP, T7 #### [facility] [address] [address] [address] Suzie Brooks Potassium [Moles/Vol] 4.1 mmol/L Normal 3.4-5.0 [facility] Comment on above: Performed By: #### U DINA, LIPID, TSH, BNP, CMP, T7 #### [facility] [address] [address] [address] Suzie Brooks Protein [Mass/Vol] 7.5 g/dL Normal 6.1-8.2 [facility] Comment on above: Performed By: #### U DINA, LIPID, TSH, BNP, CMP, T7 #### [facility] [address] [address] [address] Suzie Brooks Sodium [Moles/Vol] 140 mmol/L Normal 137-145 [facility] Comment on above: Performed By: #### U DINA, LIPID, TSH, BNP, CMP, T7 #### [facility] [address] [place] [address] Dr. Suzie Brooks Urea nitrogen [Mass/Vol] 16.0 mg/dL Normal 7.0-18.0 [facility] Comment on above: Performed By: #### U DINA, LIPID, TSH, BNP, CMP, T7 #### [facility] [address] [address] [address] Suzie Brooks Urea nitrogen/Creatinine [Mass ratio] 15.2 mg/mg Normal [facility] Comment on above: Performed By: #### U DINA, LIPID, TSH, BNP, CMP, T7 #### [facility] [address] [place] [address] Dr. Suzie Brooks URINE MICROSCOPIC ONLYon BACTERIA SMALL Abnormal NONE SEEN [facility] Comment on above: Performed By: #### U DINA, LIPID, TSH, BNP, CMP, T7 #### [facility] [address] [place] [address] Dr. Suzie Brooks Bacteria identified Cx Nom (U) INDICATED Normal [facility] Comment on above: Performed By: #### U DINA, LIPID, TSH, BNP, CMP, T7 #### [facility] [address] [place] [address] Dr. Suzie Brooks CAST NONE SEEN Normal NONE SEEN [facility] Comment on above: Performed By: #### U DINA, LIPID, TSH, BNP, CMP, T7 #### [facility] [address] [place] [address] Dr. Suzie Brooks Crystals LM Nom (Urine sed) NONE SEEN Normal NONE SEEN [facility] Comment on above: Performed By: #### U DINA, LIPID, TSH, BNP, CMP, T7 #### [facility] [address] [place] [address] Dr. Suzie Brooks Epithelial cells LM Ql (Urine sed) RARE Normal NONE SEEN /RARE [facility] Comment on above: Performed By: #### U DINA, LIPID, TSH, BNP, CMP, T7 #### [facility] [address] [place] [address] Dr. Suzie Brooks MUCOUS NONE SEEN Normal NONE SEEN [facility] Comment on above: Performed By: #### U DINA, LIPID, TSH, BNP, CMP, T7 #### [facility] [address] [place] [address] Dr. Suzie Brooks RBC 50-75 Abnormal 0-2 [facility] Comment on above: Performed By: #### U DINA, LIPID, TSH, BNP, CMP, T7 #### [facility] [address] [place], [place] [address] Dr. Suzie Brooks WBC 20-50 Abnormal NONE SEEN [facility] Comment on above: Performed By: #### U DINA, LIPID, TSH, BNP, CMP, T7 #### [facility] [address] [place], [place] [address] Dr. Suzie Brooks XR KUB 1 VIEWon [...] BEHZAD SANTOS Date: 2021-11-06 21:58 Normal [facility] XR KUB 1 VIEW EXAMINATION: XR [...] RAFAEL GRAVES Date: 2021-11-06 08:06 Normal [facility] CBC AUTO DIFFon 11-05-2021 BASO # 0.1 103/ul Normal 0.0-0.1 [facility] Comment on above: Performed By: #### U DINA, LIPID, TSH, BNP, CMP, T7 #### [facility] [address] [id number] Suzie Brooks Basophils/100 WBC (Bld) 0.6 % Normal 0.2-2.0 [facility] Comment on above: Performed By: #### U DINA, LIPID, TSH, BNP, CMP, T7 #### [facility] [address] [place] [address] Dr. Suzie Brooks EO # 0.3 103/ul Normal 0.0-0.7 [facility] Comment on above: Performed By: #### U DINA, LIPID, TSH, BNP, CMP, T7 #### [facility] [address] [place] [address] Dr. Suzie Brooks Eosinophils/100 WBC (Bld) 2.2 % Normal 0.9-7.0 [facility] Comment on above: Performed By: #### U DINA, LIPID, TSH, BNP, CMP, T7 #### [facility] [address] [place] [address] Dr. Suzie Brooks Erythrocyte distribution width (RBC) [Ratio] 13.7 % Normal 11.0-15.0 [facility] Comment on above: Performed By: #### U DINA, LIPID, TSH, BNP, CMP, T7 #### [facility] [address] [place] [address] Dr. Suzie Brooks Hematocrit (Bld) [Volume fraction] 49.0 % Normal 42.0-54.0 [facility] Comment on above: Performed By: #### U DINA, LIPID, TSH, BNP, CMP, T7 #### [facility] [address] [place] [address] Dr. Suzie Brooks Hemoglobin (Bld) [Mass/Vol] 15.9 g/dL Normal 14.0-18.0 [facility] Comment on above: Performed By: #### U DINA, LIPID, TSH, BNP, CMP, T7 #### [facility] [address] [place] [address] Dr. Suzie Brooks IG # 0.07 10e3/ul Critically high 0.00-0.03 [facility] Comment on above: Performed By: #### U DINA, LIPID, TSH, BNP, CMP, T7 #### [facility] [address] [place] [address] Dr. Suzie Brooks IG % 0.5 % Normal 0.0-0.5 [facility] Comment on above: Performed By: #### U DINA, LIPID, TSH, BNP, CMP, T7 #### [facility] [address] [place] [address] Dr. Suzie Brooks LYMPH # 3.1 103/ul Normal 1.2-3.8 [facility] Comment on above: Performed By: #### U DINA, LIPID, TSH, BNP, CMP, T7 #### [facility] [address] [place] [address] Dr. Suzie Brooks Lymphocytes/100 WBC (Bld) 23.8 % Normal 20.5-60.0 [facility] Comment on above: Performed By: #### U DINA, LIPID, TSH, BNP, CMP, T7 #### [facility] [address] [place] [address] Dr. Suzie Brooks MANUAL DIFF REQ NO Normal [facility] Comment on above: Performed By: #### U DINA, LIPID, TSH, BNP, CMP, T7 #### [facility] [address] [place] [address] Dr. Suzie Brooks MCH (RBC) [Entitic mass] 28.8 pg Normal 25.9-34.0 [facility] Comment on above: Performed By: #### U DINA, LIPID, TSH, BNP, CMP, T7 #### [facility] [address] [place] [address] Dr. Suzie Brooks MCHC (RBC) [Mass/Vol] 32.4 g/dL Normal 29.9-35.2 [facility] Comment on above: Performed By: #### U DINA, LIPID, TSH, BNP, CMP, T7 #### [facility] [address] [place] [address] Dr. Suzie Brooks MCV (RBC) [Entitic vol] 88.8 fL Normal 80.0-94.0 [facility] Comment on above: Performed By: #### U DINA, LIPID, TSH, BNP, CMP, T7 #### [facility] [address] [place] [address] Dr. Suzie Brooks MONO # 0.9 103/ul Critically high 0.3-0.8 [facility] Comment on above: Performed By: #### U DINA, LIPID, TSH, BNP, CMP, T7 #### [facility] [address] [address] [address] Suzie Brooks Monocytes/100 WBC (Bld) 6.8 % Normal 1.7-12.0 [facility] Comment on above: Performed By: #### U DINA, LIPID, TSH, BNP, CMP, T7 #### [facility] [address] [address] [address] Suzie Brooks NEUT # 8.7 103/ul Critically high 1.4-6.5 [facility] Comment on above: Performed By: #### U DINA, LIPID, TSH, BNP, CMP, T7 #### [facility] [address] [place] [address] Dr. Suzie Brooks Neutrophils/100 WBC (Bld) 66.1 % Normal 43.0-75.0 [facility] Comment on above: Performed By: #### U DINA, LIPID, TSH, BNP, CMP, T7 #### [facility] [address] [address] [address] Suzie Brooks Platelet mean volume (Bld) [Entitic vol] 9.4 fL Critically low 9.5-13.5 [facility] Comment on above: Performed By: #### U DINA, LIPID, TSH, BNP, CMP, T7 #### [facility] [address] [place] [address] Dr. Suzie Brooks PLT 278 103/ul Normal 150-450 [facility] Comment on above: Performed By: #### U DINA, LIPID, TSH, BNP, CMP, T7 #### [facility] [address] [place] [address] Dr. Suzie Brooks RBC 5.52 106/ul Normal 4.70-6.10 [facility] Comment on above: Performed By: #### U DINA, LIPID, TSH, BNP, CMP, T7 #### [facility] [address] [place] [address] Dr. Suzie Brooks WBC 13.1 103/ul Critically high 4.0-11.0 [facility] Comment on above: Performed By: #### U DINA, LIPID, TSH, BNP, CMP, T7 #### [facility] [address] [place], [place] [address] ABD/PELVIS WO CONon [...] RAFAEL GRAVES Date: 2021-11-05 11:46 Normal [facility] CULTURE URINEon 11-05-2021 CULTURE URINE Culture Observations : No growth Normal [facility] Comment on above: Performed By: #### M AG24 #### [facility] [address] [place], [place] [address] Dr. Suzie Brooks ER URINE PROFILEon 2 Bilirubin Ql (U) Negative Normal NEGATIVE [facility] Comment on above: Performed By: #### C VDTBH #### [facility] [address] [place] [address] Dr. Suzie Brooks Clarity (U) CLEAR Normal CLEAR [facility] Comment on above: Performed By: #### C VDTBH #### [facility] [address] [place] [address] Dr. Suzie Brooks Color (U) DK. YELLOW Normal YELLOW [facility] Comment on above: Performed By: #### C VDTBH #### [facility] [address] [place] [address] Dr. Suzie Brooks ERUAHD A micrscopic examina tion will be performed if indicated. Normal [facility] Comment on above: Performed By: #### C VDTBH #### [facility] [address] [place] [address] Dr. Suzie Brooks Glucose Ql (U) Negative Normal NEGATIVE [facility] Comment on above: Performed By: #### C VDTBH #### [facility] [address] [place] [address] Dr. Suzie Brooks Hemoglobin Ql (U) LARGE Abnormal NEGATIVE [facility] Comment on above: Performed By: #### C VDTBH #### [facility] [address] [place] [address] Dr. Suzie Brooks Ketones Ql (U) Negative Normal NEGATIVE [facility] Comment on above: Performed By: #### C VDTBH #### [facility] [address] [place] [address] Dr. Suzie Brooks LEUKOCYTES Negative Normal NEGATIVE [facility] Comment on above: Performed By: #### C VDTBH #### [facility] [address] [place] [address] Dr. Suzie Brooks Nitrite Ql (U) Negative Normal NEGATIVE [facility] Comment on above: Performed By: #### C VDTBH #### [facility] [address] [place] [address] Dr. Suzie Brooks pH (U) 5.0 [pH] Normal 5-9 [facility] Comment on above: Performed By: #### C VDTBH #### [facility] [address] [place] [address] Dr. Suzie Brooks Protein (U) [Mass/Vol] 100 mg/dL Abnormal NEGATIVE/ TRACE [facility] Comment on above: Performed By: #### C VDTBH #### [facility] [address] [place] [address] Dr. Suzie Brooks SPEC GRAVITY >=1.030 Abnormal 1.005-<=1.02 5 [facility] Comment on above: Performed By: #### C VDTBH #### [facility] [address] [place] [address] Dr. Suzie Brooks UR MICRO IND INDICATED Normal [facility] Comment on above: Performed By: #### C VDTBH #### [facility] [address] [place] [address] Dr. Suzie Brooks Urobilinogen Qn (U) 0.2 {Behzad'U}/dL Normal 0.2 - 1. 0 [facility] Comment on above: Performed By: #### C VDTBH #### [facility] [address] [place] [address] Dr. Suzie Brooks PROF 14(COMP METB)on 022 Albumin [Mass/Vol] 3.9 g/dL Normal 3.4-5.0 [facility] Comment on above: Performed By: #### U DINA, LIPID, TSH, BNP, CMP, T7 #### [facility] [address] [place] [address] Dr. Suzie Brooks Albumin/Globulin [Mass ratio] 1.1 {ratio} Normal [facility] Comment on above: Performed By: #### U DINA, LIPID, TSH, BNP, CMP, T7 #### [facility] [address] [place] [address] Dr. Suzie Brooks ALP [Catalytic activity/Vol] 64 U/L Normal 46-116 [facility] Comment on above: Performed By: #### U DINA, LIPID, TSH, BNP, CMP, T7 #### [facility] [address] [address] [address] Suzie Brooks ALT [Catalytic activity/Vol] 57 U/L Normal 16-63 [facility] Comment on above: Performed By: #### U DINA, LIPID, TSH, BNP, CMP, T7 #### [facility] [address] [address] [address] Suzie Brooks Anion gap [Moles/Vol] 14.4 mmol/L Normal [facility] Comment on above: Performed By: #### U DINA, LIPID, TSH, BNP, CMP, T7 #### [facility] [address] [address] [address] Suzie Brooks AST [Catalytic activity/Vol] 51 U/L Critically high 15-37 [facility] Comment on above: Performed By: #### U DINA, LIPID, TSH, BNP, CMP, T7 #### [facility] [address] [address] [address] Suzie Brooks Bilirubin [Mass/Vol] 0.8 mg/dL Normal 0.2-1.3 [facility] Comment on above: Performed By: #### U DINA, LIPID, TSH, BNP, CMP, T7 #### [facility] [address] [address] [address] Suzie Brooks Calcium [Mass/Vol] 8.5 mg/dL Normal 8.5-10.1 [facility] Comment on above: Performed By: #### U DINA, LIPID, TSH, BNP, CMP, T7 #### [facility] [address] [address] [address] Suzie Brooks Chloride [Moles/Vol] 103 mmol/L Normal 98-107 [facility] Comment on above: Performed By: #### U DINA, LIPID, TSH, BNP, CMP, T7 #### [facility] [address] [address] [address] Suzie Brooks CO2 [Moles/Vol] 26.8 mmol/L Normal 22.0-30.0 [facility] Comment on above: Performed By: #### U DINA, LIPID, TSH, BNP, CMP, T7 #### [facility] [address] [address] [address] Suzie Brooks Creatinine [Mass/Vol] 0.98 mg/dL Normal 0.66-1.25 [facility] Comment on above: Performed By: #### U DINA, LIPID, TSH, BNP, CMP, T7 #### [facility] [address] [address] [address] Suzie Brooks EGFR-AF LIBERIAN >60 Normal >=60 [facility] Comment on above: Performed By: #### U DINA, LIPID, TSH, BNP, CMP, T7 #### [facility] [address] [place] [address] Dr. Suzie Brooks EGFR-NON AF LIBERIAN >60 Normal >=60 [facility] Comment on above: Performed By: #### U DINA, LIPID, TSH, BNP, CMP, T7 #### [facility] [address] [place] [address] Dr. Suzie Brooks Globulin (S) [Mass/Vol] 3.7 g/dL Normal [facility] Comment on above: Performed By: #### U DINA, LIPID, TSH, BNP, CMP, T7 #### [facility] [address] [place] [address] Dr. Suzie Brooks Glucose [Mass/Vol] 118 mg/dL Critically high 74-106 [facility] Comment on above: Performed By: #### U DINA, LIPID, TSH, BNP, CMP, T7 #### [facility] [address] [place] [address] Dr. Suzie Brooks Potassium [Moles/Vol] 4.2 mmol/L Normal 3.4-5.0 [facility] Comment on above: Performed By: #### U DINA, LIPID, TSH, BNP, CMP, T7 #### [facility] [address] [place] [address] Dr. Suzie Brooks Protein [Mass/Vol] 7.6 g/dL Normal 6.1-8.2 [facility] Comment on above: Performed By: #### U DINA, LIPID, TSH, BNP, CMP, T7 #### [facility] [address] [place] [address] Dr. Suzie Brooks Sodium [Moles/Vol] 140 mmol/L Normal 137-145 [facility] Comment on above: Performed By: #### U DINA, LIPID, TSH, BNP, CMP, T7 #### [facility] [address] [place] [address] Dr. Suzie Brooks Urea nitrogen [Mass/Vol] 14.0 mg/dL Normal 7.0-18.0 [facility] Comment on above: Performed By: #### U DINA, LIPID, TSH, BNP, CMP, T7 #### [facility] [address] [place] [address] Dr. Suzie Brooks Urea nitrogen/Creatinine [Mass ratio] 14.3 mg/mg Normal [facility] Comment on above: Performed By: #### U DINA, LIPID, TSH, BNP, CMP, T7 #### [facility] [address] [place] [address] Dr. Suzie Brooks URINE MICROSCOPIC ONLYon BACTERIA MODERATE Abnormal NONE SEEN [facility] Comment on above: Performed By: #### C VDTBH #### [facility] [address] [place] [address] Dr. Suzie Brooks Bacteria identified Cx Nom (U) INDICATED Normal [facility] Comment on above: Performed By: #### C VDTBH #### [facility] [address] [place] [address] Dr. Suzie Brooks CAST SEEN Abnormal NONE SEEN [facility] Comment on above: Performed By: #### C VDTBH #### [facility] [address] [place] [address] Dr. Suzie Brooks Crystals LM Nom (Urine sed) NONE SEEN Normal NONE SEEN [facility] Comment on above: Performed By: #### C VDTBH #### [facility] [address] [place] [address] Dr. Suzie Brooks Epithelial cells LM Ql (Urine sed) RARE Normal NONE SEEN /RARE [facility] Comment on above: Performed By: #### C VDTBH #### [facility] [address] [place] [address] Dr. Suzie Brooks HYALINE CAST RARE Normal [facility] Comment on above: Performed By: #### C VDTBH #### [facility] [address] [address] [address] Suzie Brooks MUCOUS NONE SEEN Normal NONE SEEN [facility] Comment on above: Performed By: #### C VDTBH #### [facility] [address] [address] [address] Suzie Brooks RBC (U) [#/Vol] /uL Abnormal 0-2 [facility] Comment on above: Performed By: #### C VDTBH #### [facility] [address] [address] [address] Suzie Brooks WBC NONE SEEN Normal NONE SEEN [facility] Comment on above: Performed By: #### C VDTBH #### [facility] [address] [place] [address] Dr. Suzie Brooks XR KUB 1 VIEWon [...] BEHZAD CARRASQUILLO Date: 2021-11-01 12:07 Normal [facility] CBC AUTO DIFFon 10-26-2021 BASO # 0.1 103/ul Normal 0.0-0.1 [facility] Comment on above: Performed By: #### U DINA, LIPID, TSH, BNP, CMP, T7 #### [facility] [address] [address] [address] Suzie Brooks Basophils/100 WBC (Bld) 0.7 % Normal 0.2-2.0 [facility] Comment on above: Performed By: #### U DINA, LIPID, TSH, BNP, CMP, T7 #### [facility] [address] [place] [address] Dr. Suzie Brooks EO # 0.2 103/ul Normal 0.0-0.7 [facility] Comment on above: Performed By: #### U DINA, LIPID, TSH, BNP, CMP, T7 #### [facility] [address] [place] [address] Dr. Suzie Brooks Eosinophils/100 WBC (Bld) 1.5 % Normal 0.9-7.0 [facility] Comment on above: Performed By: #### U DINA, LIPID, TSH, BNP, CMP, T7 #### [facility] [address] [place] [address] Dr. Suzie Brooks Erythrocyte distribution width (RBC) [Ratio] 13.9 % Normal 11.0-15.0 [facility] Comment on above: Performed By: #### U DINA, LIPID, TSH, BNP, CMP, T7 #### [facility] [address] [place] [address] Dr. Suzie Brooks Hematocrit (Bld) [Volume fraction] 47.5 % Normal 42.0-54.0 [facility] Comment on above: Performed By: #### U DINA, LIPID, TSH, BNP, CMP, T7 #### [facility] [address] [place] [address] Dr. Suzie Brooks Hemoglobin (Bld) [Mass/Vol] 15.5 g/dL Normal 14.0-18.0 [facility] Comment on above: Performed By: #### U DINA, LIPID, TSH, BNP, CMP, T7 #### [facility] [address] [place] [address] Dr. Suzie Brooks IG # 0.06 10e3/ul Critically high 0.00-0.03 [facility] Comment on above: Performed By: #### U DINA, LIPID, TSH, BNP, CMP, T7 #### [facility] [address] [place] [address] Dr. Suzie Brooks IG % 0.5 % Normal 0.0-0.5 [facility] Comment on above: Performed By: #### U DINA, LIPID, TSH, BNP, CMP, T7 #### [facility] [address] [address] [address] Suzie Brooks LYMPH # 2.6 103/ul Normal 1.2-3.8 [facility] Comment on above: Performed By: #### U DINA, LIPID, TSH, BNP, CMP, T7 #### [facility] [address] [address] [address] Suzie Brooks Lymphocytes/100 WBC (Bld) 23.1 % Normal 20.5-60.0 [facility] Comment on above: Performed By: #### U DINA, LIPID, TSH, BNP, CMP, T7 #### [facility] [address] [address] [address] Suzie Brooks MANUAL DIFF REQ NO Normal [facility] Comment on above: Performed By: #### U DINA, LIPID, TSH, BNP, CMP, T7 #### [facility] [address] [place] [address] Dr. Suzie Brooks MCH (RBC) [Entitic mass] 28.9 pg Normal 25.9-34.0 [facility] Comment on above: Performed By: #### U DINA, LIPID, TSH, BNP, CMP, T7 #### [facility] [address] [place] [address] Dr. Suzie Brooks MCHC (RBC) [Mass/Vol] 32.6 g/dL Normal 29.9-35.2 [facility] Comment on above: Performed By: #### U DINA, LIPID, TSH, BNP, CMP, T7 #### [facility] [address] [address] [address] Suzie Brooks MCV (RBC) [Entitic vol] 88.5 fL Normal 80.0-94.0 [facility] Comment on above: Performed By: #### U DINA, LIPID, TSH, BNP, CMP, T7 #### [facility] [address] [place] [address] Dr. Suzie Brooks MONO # 0.9 103/ul Critically high 0.3-0.8 [facility] Comment on above: Performed By: #### U DINA, LIPID, TSH, BNP, CMP, T7 #### [facility] [address] [address] [address] Suzie Brooks Monocytes/100 WBC (Bld) 7.9 % Normal 1.7-12.0 [facility] Comment on above: Performed By: #### U DINA, LIPID, TSH, BNP, CMP, T7 #### [facility] [address] [address] [address] Suzie Brooks NEUT # 7.4 103/ul Critically high 1.4-6.5 [facility] Comment on above: Performed By: #### U DINA, LIPID, TSH, BNP, CMP, T7 #### [facility] [address] [address] [address] Suzie Brooks Neutrophils/100 WBC (Bld) 66.3 % Normal 43.0-75.0 [facility] Comment on above: Performed By: #### U DINA, LIPID, TSH, BNP, CMP, T7 #### [facility] [address] [place] [address] Dr. Suzie Brooks Platelet mean volume (Bld) [Entitic vol] 9.6 fL Normal 9.5-13.5 [facility] Comment on above: Performed By: #### U DINA, LIPID, TSH, BNP, CMP, T7 #### [facility] [address] [place] [address] Dr. Suzie Brooks PLT 252 103/ul Normal 150-450 [facility] Comment on above: Performed By: #### U DINA, LIPID, TSH, BNP, CMP, T7 #### [facility] [address] [address] [address] Suzie Brooks RBC 5.37 106/ul Normal 4.70-6.10 [facility] Comment on above: Performed By: #### U DINA, LIPID, TSH, BNP, CMP, T7 #### [facility] [address] [place] [address] Dr. Suzie Brooks WBC 11.2 103/ul Critically high 4.0-11.0 [facility] Comment on above: Performed By: #### U DINA, LIPID, TSH, BNP, CMP, T7 #### [facility] [address] [place] [address] Dr. Suzie Brooks [facility] SARS-CoV-2 (COVID-19) RNA SUKHJINDER+probe Ql (Unsp spec) Not detected Normal NOT DETECTED [facility] Comment on above: Result Comment: This test is not yet approved or cleared by the [place] FDA. When there are no FDA-approved or cleared tests available, and other criteria are met, FDA can make tests available under an emergency access mechanism called an Emergency Use Authorization (EUA). The EUA for this test is supported by the [place] of Health and Human Service's (HHS's) declaration [...] DINA, LIPID, TSH, BNP, CMP, T7 #### [facility] [address] [place] [address] Dr. Suzie Brooks PROF CHEM 8 (BAS METB)on Anion gap [Moles/Vol] 7.7 mmol/L Normal [facility] Comment on above: Performed By: #### C VDTBH #### [facility] [address] [place] [address] Dr. Suzie Brooks Calcium [Mass/Vol] 8.6 mg/dL Normal 8.5-10.1 [facility] Comment on above: Performed By: #### C VDTBH #### [facility] [address] [place] [address] Dr. Suzie Brooks Chloride [Moles/Vol] 104 mmol/L Normal 98-107 [facility] Comment on above: Performed By: #### C VDTBH #### [facility] [address] [address] [address] Suzie Brooks CO2 [Moles/Vol] 31.8 mmol/L Critically high 22.0-30.0 [facility] Comment on above: Performed By: #### C VDTBH #### [facility] [address] [address] [address] Suzie Brooks Creatinine [Mass/Vol] 0.99 mg/dL Normal 0.66-1.25 [facility] Comment on above: Performed By: #### C VDTBH #### [facility] [address] [address] [address] Suzie Brooks EGFR-AF LIBERIAN >60 Normal >=60 [facility] Comment on above: Performed By: #### C VDTBH #### [facility] [address] [place] [address] Dr. Suzie Brooks EGFR-NON AF LIBERIAN >60 Normal >=60 [facility] Comment on above: Performed By: #### C VDTBH #### [facility] [address] [address] [address] Suzie Brooks Glucose [Mass/Vol] 94 mg/dL Normal 74-106 [facility] Comment on above: Performed By: #### C VDTBH #### [facility] [address] [place] [address] Dr. Suzie Brooks Potassium [Moles/Vol] 4.5 mmol/L Normal 3.4-5.0 [facility] Comment on above: Performed By: #### C VDTBH #### [facility] [address] [place] [address] Dr. Suzie Brooks Sodium [Moles/Vol] 139 mmol/L Normal 137-145 [facility] Comment on above: Performed By: #### C VDTBH #### [facility] [address] [address] [address] Suzie Brooks Urea nitrogen [Mass/Vol] 12.0 mg/dL Normal 7.0-18.0 [facility] Comment on above: Performed By: #### C VDTBH #### [facility] [address] [place] [address] Dr. Suzie Brooks Urea nitrogen/Creatinine [Mass ratio] 12.1 mg/mg Normal [facility] Comment on above: Performed By: #### C VDTBH #### [facility] [address] [place] [address] Dr. Suzie Brooks PROTIMEon 10-26-2021 INR Coag (PPP) [Relative time] 0.99 {INR} Normal [facility] Comment on above: Performed By: #### C VDTBH #### [facility] [address] [place] [address] Dr. Suzie Brooks INR GUIDELINES SEE BELOW Normal [facility] Comment on above: Result Comment: TOMMY RED INR: 2.0 - 3.0 CONDITIONS NOT LISTED BELOW 2.5 - 3.5 FOR PROSTHETIC HEART VALVE REPLACEMENT 2.5 - 3.5 RECURRENT THROMBOSIS Performed By: #### C VDTBH #### [facility] [address] [place] [address] Dr. Suzie Brooks PT Coag (PPP) [Time] 10.7 s Normal 9.0-11.6 [facility] Comment on above: Performed By: #### C VDTBH #### [facility] [address] [place] [address] Dr. Suzie Brooks PTTon 10-26-2021 aPTT Coag (Bld) [Time] 26.4 s Normal 22.3-36.2 [facility] Comment on above: Performed By: #### C VDTBH #### [facility] [address] [place] [address] Dr. Suzie Brooks XR KUB 1 VIEWon [...] by: RAFAEL GRAVES Date: 2021-10-17 13:26 Normal [facility] Vital Signs Date Time Vital Sign Value Performing Clinician Dario mcdonough 04-11-2023 11:55-0400 Blood Pressure Location Mikikimberly ZENG [facility] 04-11-2023 11:55-0400 Diastolic blood pressure 76 mm[Hg] Miki ZENG [facility] 04-11-2023 11:55-0400 Heart rate 80 /min Miki ZENG [facility] 04-11-2023 11:55-0400 Respiratory rate 16 /min Miki ZENG [facility] 04-11-2023 11:55-0400 Systolic blood pressure 134 mm[Hg] Miki ZENG [facility] 02-25-2022 14:20-0400 Blood Pressure Location Miki ZENG [facility] 02-25-2022 14:20-0400 Diastolic blood pressure 100 mm[Hg] Miki ZENG [facility] 02-25-2022 14:20-0400 Heart rate 86 /min Miki ZENG [facility] 02-25-2022 14:20-0400 Respiratory rate 16 /min Miki ZENG [facility] 02-25-2022 14:20-0400 Systolic blood pressure 155 mm[Hg] Miki ZENG [facility] Encounters Encounter Date Encounter Type Care Provider Facility Start: 04-16-2024 ambulatory Miki Sims ty:[facility] Start: 04-11-2023 End: 04-12-2023 ambulatory Miki ZENG Facility:[facility] Start: 04-11-2023 End: 04-11-2023 Patient encounter procedure Miki ZENG [facility] Start: 08-19-2022 End: 08-20-2022 ambulatory Miki ZENG Facility:[facility] Start: 08-14-[address] MARIELLE LERMA Facility :[facility] Start: 08-13-[address] MARIELLE LERMA Facility :[facility] Start: 07-26-2022 End: 07-27-[address] MARIELLE LERMA Facility:[facility] Start: 07-18-2022 End: 07-19-[address] MIKI ZENG Facility:[facility] Start: 05-15-2022 End: 05-16-[address] MARIELLE LERMA Facility:[facility] Start: 02-25-2022 End: 02-25-2022 Patient encounter procedure Miki ZENG [facility] Start: 02-18-2022 End: 02-18-[address] [...] procedure MD Marielle Lerma Work Phone: [facility] Start: 11-12-2021 End: 11-13-[address] MIKI ZENG Facility:[facility] Start: 11-06-2021 End: 11-07-[address] MARIELLE LERMA Facility:[facility] Start: 11-05-2021 End: 11-05-[address] MARIELLE LERMA Facility:[facility] Start: 11-01-2021 End: 11-01-[address] MIKI ZENG Facility:[facility] Start: 10-31-2021 Encounter for preprocedural cardiovascular examination DR MIKI ZENG [facility] Start: 10-30-[address] MIKI ZENG [facility] ity:[facility] Start: 10-26-2021 End: 10-27-[address] MIKI ZENG Facility:[facility] Start: 10-26-2021 End: 10-27-2021 Encounter for preprocedural cardiovascular examination DR MIKI ZENG Facility:[facility] Start: 10-17-2021 End: 10-18-[address] MIKI ZENG Facility:[facility] Procedures Date Procedure Procedure Detail Performing Clinician Start: 05-15-[address] JHONATAN ZENG Comment on above: Performed By: #### U DINA, LIPID, TSH, BNP, CMP, T7 #### [facility] [address] [place] [address] Dr. Suzie Brooks Start: 11-21-2021 Cystoscopy Miki [...] Provider Fa cili 05-31-2022 SARS-CoV-2 (COVID-19 ) [id number] Miki ZENG [facility] Comment on above: Result Comment: 2022: [id number] 12-22-2021 SARS-CoV-2 (COVID-19 ) mRNA-1273 vaccine Miki ZENG [facility] 06-05-2021 SARS-CoV-2 (COVID-19 ) mRNA-1273 vaccine Miki ZENG [facility] 05-29-2021 influenza virus vaccine, unspecified formulation Miki ZENG [facility] 05-15-2021 influenza virus vaccine, unspecified formulation Miki ZENG [facility] 11-09-2020 SARS-CoV-2 (COVID-19 ) mRNA-1273 vaccine Miki ZENG [facility] 11-01-2020 SARS-CoV-2 (COVID-19 ) mRNA-1273 vaccine Miki ZENG [facility] 10-09-2020 SARS-CoV-2 (COVID-19 ) mRNA-1273 vaccine Miki ZENG [facility] 10-05-2020 SARS-CoV-2 (COVID-19 ) [id number] vaccine [employer] [facility] 05-17-2020 influenza virus vaccine, unspecified formulation [employer] [facility] 06-24-2019 tetanus toxoid, redu roberto carlos diphtheria toxoid, and acellular pertussis vaccine, adsorbed [employer] [facility] 05-25-2019 influenza virus vaccine, unspecified formulation [employer] [facility] 05-22-2017 influenza virus vaccine, unspecified formulation [employer] [facility] 05-22-2017 pneumococcal conjuga te vaccine, 13 valent [employer] [facility] 05-30-2016 influenza, unspecifi ed formulation [employer] [facility] 11-01-2013 zoster vaccine, live Miki ZENG [facility] 12-18-2005 hepatitis A vaccine, adult dosage [employer] 10-18-2005 hepatitis B vaccine, pediatric or pediatric/adolescent dosage [employer] [facility] 10-18-2005 tetanus and diphther ia toxoids, adsorbed, preservative free, for adult use (2 Lf of tetanus toxoid and 2 Lf of diphtheria toxoid) [employer] [facility] 07-26-2005 hepatitis B vaccine, pediatric or pediatric/adolescent dosage Miki ZENG [facility] 06-20-2005 hepatitis A vaccine, adult dosage Miki ZENG [facility] 06-20-2005 hepatitis B vaccine, pediatric or pediatric/adolescent dosage Miki ZENG [facility] Payers Date Payer Category Payer Medicare [id number] Private Health Insurance [id number] 1952 Unknown [id number] 2.16.84 [id number] 1952 Unknown [id number] 2.16.84 [id number] 1952 Unknown [id number] 2.16.84 [id number] 1952 Unknown [id number] 2.16.84 [id number] 1952 Unknown [id number] 2.16.84 [id number] 1952 Unknown [id number] 2.16.84 [id number] 1952 Unknown [id number] 2.16.84 [id number] 1952 Unknown [id number] 2.16.84 [id number] 1952 Unknown [id number] 2.16.84 [id number] 1952 Unknown [id number] 2.16.84 [id number] 1952 Unknown [id number] 2.16.84 [id number] 1952 Unknown [id number] 2.16.84 [id number] 1950 Unknown [id number] 2.16.84 0.1.410442.3.579.2.593 1950 Unknown [id number] 2.16.84 0.1.891581.3.579.2.593 1950 Unknown [id number] 2.16.84 0.1.499436.3.579.2.593 1950 Unknown [id number] 2.16.84 0.1.469654.3.579.2.593 1950 Unknown [id number] 2.16.84 0.1.193579.3.579.2.593 1950 Unknown [id number] 2.16.84 0.1.872225.3.579.2.593 1950 Unknown [id number] 2.16.8 40.1.033539.3.579.2.727 1950 Unknown [id number] 2.16.8 40.1.044125.3.579.2.727 1950 Unknown [id number] 2.16.8 40.1.221195.3.579.2.727 Self-pay Self Pay [id number] Social History Date Type Detail Facility Start: 10-19-2019 End: 04-11-2023 Tobacco smoking status NHIS Ex-smoker (finding) [facility] Start: 1950 Sex Assigned At Male F [facility] Tobacco smoking status Never [facility] Sex Assigned At Male [facility] Functional Status Date Assessment Result Facility 04-11-2023 Functional Status N/A [facility] 02-25-2022 Functional Status N/A [facility] Hospital Discharge instructions 04-11-2023 Note Date [...] include: ?8 oz (237 mL) of milk, wkchkmn-sxmmjahyhtlw-lpzbb milk, and calcium-fortifiedfruit juice. Calcium-fortified means that [...] ?Spinach (cooked), rhubarb, beets, sweet potatoes, and Azerbaijani chard. ?Peanuts. ?Potato chips, mexican fries, and baked potatoes with skin on. ?Nuts and nut products. ?Chocolate. If you regularly take a diuretic medicine, make sure to eat at least 1 or 2 servings of fruits or vegetables that are high in potassium each day. These include: ?Avocado. ?Banana. ?[place], prune, carrot, or tomato juice. ?Baked potato. [...] magnesium, fish oil, or vitamin B6. Take mtyt-hpe-zfzsuwu and prescription medicines only as told by [...] Casseroles. Pizza. Lasagna. Frozen meals. Potato chips. Taj[place] fries. The items listed above may not [...] provider. Document Revised: 04/08/2022 Document Reviewed: 04/08/2022 [employer] Patient Education 2022 [employer]. Follow Up Care 08/19/2022 10:39:03 With:THOR BATISTA, Miki Cedeño, URL Address: [facility] [address], [place] [address]- When:Within 1 Year(s) [facility] Hospital Discharge instructions 02-25-2022 Note Date [...] 07/28/2006 Document Revised: 04/16/2019 Document Reviewed: 06/27/2017 [employer] Patient Education 2020 [employer]. 02/25/2022 15:28:39 Kidney Stones, Sobw-ra-Iwqd Kidney Stones Kidney stones are rock-like masses [...] Follow these instructions at home: Medicines Take sdhn-fkj-lmrzstm and prescription medicines only as told by [...] 01/13/2009 Document Revised: 12/14/2019 Document Reviewed: 12/14/2019 [employer] Patient Education 2020 [employer]. Follow Up Care 11/21/2021 12:48:10 With:THOR BATISTA, Miki Cedeño, URL Address: [facility] [address] , [place] [address]- [phone] When:Within 4 Month(s) Comments:4 mo fu with IVP [facility] Evaluation + Plan note 02-25-2022 Note Date & Type Note Facility 02-25-2022 Evaluation + Plan note Diagnostic Tests PendingPSA Total 02/25/22Creatinine 02/25/22 [facility] Evaluation + Plan note Note Date & Type Note Facility Evaluation + Plan note Future Appointments Appointment Date:04/16/2024 11:00:00 AM Scheduled Provider:THOR BATISTA, Miki Cedeño Location:[facility] Appointment Type:URO Office Visit [facility] Evaluation note Note Date & Type Note Facility Evaluation note No assessment information availa [facility] Work Phone: Hospital course Narrative Note Date & Type Note Facility Hospital course Narrative No data available for this section [facility] Progress note Note Date & Type Note Facility Progress note No data available for this section [facility] Chief Complaint and Reason for Visit [...] section and content) DATE CREATED AUTHOR 11/22/2021 [facility] DATE CREATED AUTHOR AUTHOR'S ORGANIZ ATION [facility]/13/2022 [facility] DATE CREATED AUTHOR AUTHOR'S ORGANIZ ATION 04/12/2023 [facility] FOR RECORDS PERTAINING TO PATIENTS WHO ARE [...] BE BASED ON THE PRIMARY CLINICAL RECORDS. [employer] provides no warranty or guarantee of the accuracy or completeness of information in this document.
[2023-09-30] MEDS: REGADENOSON 0.4 MG/5 ML SYRINGE IV (09:57)
--- NOTE | 2023-09-30 12:27 | P.STRESS_ITS ---
Stress Test Stress Test Allergies Allergy/AdvReac Type Severity Reaction Status Date / Time No Known Drug Allergies Allergy Verified 08/15/23 09:06 Requesting physician: Guicho Lerma Procedure: Lexiscan Cardiolite stress test General Information: Reason for Stress Test: Chest pain Cardiac History and Risk Factors: Denies any despite having lisinopril and clonidine listed on home medications. Unspecified heart disease in father. Resting 12 - Lead Electrocardiogram: Rate & rhythm: Normal sinus at a rate of 73. [place]: Trend towards right axis deviation T-waves: Flattened in aVL ST-segments: Normal orientation 1st-degree AV block Stress Test: Protocol: Ronny protocol was initiated, but due to inability to ambulate, the exercise component was therefore canceled.? Testing was changed to Lexiscan protocol, with injection of 0.4mg Lexiscan IV push followed by Cardiolite. Blood pressure: Initial and maximum were 148/82 Rate & rhythm: Patient remained in sinus rhythm during the exercise and recovery portions of the study.? The maximum heart rate was 97, which was 65% of the maximum predicted heart rate 149. ST-segments & T-waves: There were no T-wave changes and no ST-segment changes when compared to the baseline EKG. Patient response/symptoms: There were no symptoms similar to the chief complaint . Interpretation: Normal Lexiscan stress test without electrocardiographical evidence of ischemia. Asymptomatic of chief complaint. Cardiolite imaging interpretation will be reported separately. Clinical correlation required.?
== END 2023-09-30 08:44 | disposition home or self-care (01) ==
LOC: CARD 08:43
PROVIDERS: PCP Family Medicine; Visit Provider Family Medicine
DX: J21.9 Acute bronchiolitis, unspecified (principal)
CPT/HCPCS: 93017; J2785

== ENCOUNTER 2023-10-01 14:16 | Outpatient (OUT) | payer MEDICARE, OTHER, SELFPAY ==
--- NOTE | 2023-10-01 14:33 | XR_ITS ---
The [address] [address] Patient Name: RIZWAN LOCK MRN: [id number] date: 1950 Sex: M Assigned Patient Location: LAB Current Patient Location: LAB Accession/Order Number: [id number] Exam Date: 10/01/2023 14:52 Report Date: 10/01/2023 15:09 At the request of: MARIELLE RAMIREZ Procedure: XR chest 2V EXAM: XR chest 2V HISTORY: Acute Bronchiolitis J21.9 . Follow-up study. COMPARISON: 09/03/2023 TECHNIQUE: Upright PA and lateral chest x-ray FINDINGS: The heart is near the upper limits of normal in size without cardiac decompensation. No acute infiltrate, effusion or pneumothorax is identified. The osseous structures are grossly intact. XR/XR chest 2V IMPRESSION: No acute infiltrate or evidence of cardiac decompensation. The overall appearance of the chest is unchanged. Electronically authenticated by: MAGAN ZUÑIGA Date: 10/01/2023 15:09
[2023-10-01 14:55] LABS: Basophils Absolute Auto 0.1 10^3/uL (0.0-0.1); Basophils Percent Auto 0.6 % (0.2-2.0); Eosinophils Absolute Auto 0.2 10^3/uL (0.0-0.7); Eosinophils Percent Auto 1.7 % (0.9-7.0); Hemoglobin 15.5 g/dL (14.0-18.0); Immature Granulocytes Abs Auto 0.11 10^3/uL (0.00-0.03); Immature Granulocytes Pct Auto 1.2 % (0.0-0.5); Lymphocytes Absolute Auto 2.5 10^3/uL (1.2-3.8); Lymphocytes Percent Auto 27.4 % (20.5-60.0); Mean Corpuscular Hemoglobin 30.1 pg (25.9-34.0); Mean Corpuscular Volume 91.3 fL (80.0-94.0); Monocytes Absolute Auto 0.7 10^3/uL (0.3-0.8); Monocytes Percent Auto 8.1 % (1.7-12.0); Neutrophils Absolute Auto 5.5 10^3/uL (1.4-6.5); Platelet Count 352 10^3/uL (150-450); Red Blood Count 5.15 10^6/uL (4.70-6.10); Red Cell Distribution Width 14.2 % (11.0-15.0); White Blood Count 9.1 10^3/uL (4.0-11.0)
[2023-10-01 15:25] LABS: Alanine Aminotransferase 34 U/L (16-63); Albumin Globulin Ratio 0.9; Albumin Level 3.4 g/dL (3.4-5.0); Alkaline Phosphatase 59 U/L (46-116); Anion Gap 11.6; Aspartate Amino Transferase 34 U/L (15-37); BUN Creatinine Ratio 16.7; Bilirubin Total 0.6 mg/dL (0.2-1.0); Calcium 8.9 mg/dL (8.5-10.1); Carbon Dioxide 27.5 mmol/L (21.0-32.0); Chloride 104 mmol/L (98-107); Estimated GFR (African America >60 (>=60); Estimated GFR (Non-African Ame >60 (>=60); Globulin 3.8 g/dL; Glucose 101 mg/dL (74-106); Potassium 4.1 mmol/L (3.5-5.1); Sodium 139 mmol/L (136-145); Total Protein 7.2 g/dL (6.4-8.2)
== END 2023-10-01 14:17 | disposition home or self-care (01) ==
LOC: LAB 14:17
PROVIDERS: PCP Family Medicine; Visit Provider Family Medicine
DX: J21.9 Acute bronchiolitis, unspecified (principal); I11.0 Hypertensive heart disease with heart failure
CPT/HCPCS: 36415; 71046; 80053; 83880; 84484; 85025; 87070; 87106; 87205

== ENCOUNTER 2023-11-04 11:51 | Inpatient (IN) | payer MEDICARE, OTHER, SELFPAY ==
[2023-11-04] VITALS (8 sets, daily range): BP systolic 127–151; BP diastolic 75–80; PULSE 77–97; RESP 16–20; TEMP 36.6–36.9; O2SAT 91–97; BMI 39.4
[2023-11-04] MEDS: 0.9 % SODIUM CHLORIDE 250 ML 10 ML IV (12:00)
--- OUTSIDE RECORDS SUMMARY | 2023-11-04 12:14 | XMS_ITS | CCD ---
Author Organization [facility] Care Team Providers Care Tree Worker Name Role Phone MD Marielle Lerma Primary Care Provider [phone] MD Miki Zeng Attending Provider Marielle Lerma Primary Care Physician [phone] THOR, DR SWEET Admitting Unavailable THOR, DR SWEET Attending Unavailable HOY, DR PALOMARES Primary Care Unavailable ZENG, DR SWEET Consulting Unavailable ZIEBER, DR BEHZAD Cedeño Consulting Unavailable MAYCOY, DR PALOMARES Primary Care Unavailable HOY, DR PALOMARES Admitting Unavailable HOY, DR PALOMARES Attending Unavailable HOY, DR PALOMARES Consulting Unavailable ZIEBDMITRIY, DR BEHZAD Cedeño Consulting Unavailable LATONYA AMADOR Consulting Unavailable THOR, DR SWEET Admitting Unavailable ZENG, DR SWEET Attending Unavailable HOY, DR PALOMARES Primary Care Unavailable THOR, DR SWEET Consulting Unavailable THOR, DR SWEET Admitting Unavailable THOR, DR SWEET Attending Unavailable HOY, DR PALOMARES Primary Care Unavailable ZENG, DR SWEET Consulting Unavailable THOR, DR SWEET Admitting Unavailable THOR, DR SWEET Attending Unavailable MAYCOY, DR PALOMARES Primary Care Unavailable THOR, DR SWEET Consulting Unavailable ZIEBDMITRIY, DR BEHZAD Cedeño Consulting Unavailable THOR, DR SWEET Admitting Unavailable ZENG, DR SWEET Attending Unavailable HOY, DR PALOMARES Primary Care Unavailable MAYCOY, DR PALOMARES Primary Care Unavailable ZENG, DR SWEET Consulting Unavailable THOR, DR SWEET Admitting Unavailable ZENG, DR SWEET Attending Unavailable ZIEBDMITRIY, DR BEHZAD Cedeño Consulting Unavailable ASHLEY, DR PALOMARES Admitting Unavailable HOY, DR PALOMARES Attending Unavailable HOY, DR PALOMARES Primary Care Unavailable HOY, DR PALOMARES Consulting Unavailable THOR, DR SWEET Admitting Unavailable THOR, DR SWEET Attending Unavailable HOY, DR PALOMARES Primary Care Unavailable THOR, DR SWEET Consulting Unavailable STAR, DR RAFAEL Pizano Consulting Unavailable THOR, DR SWEET Admitting Unavailable [...] PALOMARES Primary Care Unavailable THOR, DR SWEET Admitting Unavailable THOR, DR SWEET Attending Unavailable ASHLEY, DR PALOMARES Primary Care Unavailable THOR, DR SWEET Consulting Unavailable ZIEBER, DR BEHZAD Cedeño Consulting Unavailable AGUBOSIM, ROMEL Consulting Unavailable LONG, MILADYS Consulting Unavailable ASHLEY, DR PALOMARES Primary Care Unavailable HAY, DR [...] Unavailable HOY, DR PALOMARES Primary Care Unavailable ASHLEY, DR PALOMARES Consulting Unavailable NADERER, DR ERMA Garcia Admitting Unavailable NADERER, DR ERMA Garcia Attending Unavailable NADERER, DR ERMA Garcia Consulting Unavailable ANNITA, RUDDY Consulting Unavailable LUE ., NADEGE Tineo Consulting Unavailable BEHZAD GROSS Consulting Unavailable THOR, DR SWEET Admitting Unavailable THOR, DR SWEET Attending Unavailable ASHLEY, DR PALOMARES Primary Care Unavailable THOR, DR SWEET Consulting Unavailable ASHLEY, DR PALOMARES Primary Care Unavailable RUDDY ARIZA Admitting Unavailable RUDDY ARIZA Attending Unavailable RUDDY ARIZA Consulting Unavailable MADDIETTACACIA Franklin Consulting Unavailable Miki ZENG Attending Unavailable Miki ZENG Attending Unavailable Allergies Allergy Classification Reported Allergen(s) Allergy Type Date of Onset Reaction(s) Facility (1 source) No Known Medication Allergies; Translations: [No Known Medication Allergies] Propensity to adverse reactions (disorder) [facility] Repository Medications Current Medications Medication Drug [...] mouth every four to six hours Hydrocodone-Acetaminophen ([place]) 5-325 mg tablet Active 1 TAB PO EVERY 4-6 HOURS 40 7 September 28, 2019 1:45pm allopurinol 300 mg oral tablet (2 sources) Xanthine Oxidase Inhibitor Start: 03-10-2023 take 1 tablet by mouth once daily allopurinol 300 mg Tab 300 mg = 1 tab(s), Oral, Daily, # 90 tab(s), Refills(s) 3, Pharmacy: [facility]/pharmacy #[id number], 180, cm, 08/19/22 9:50:00 EST, Height/Length Dosing, 136.2, kg, 08/19/22 9:50:00 EST, Weight Dosing Start Date: 03/10/23 Status: Ordered Start: 02-25-2022 allopurinol 30 0 mg Tab 150 mg = 0.5 tab(s), Oral, Daily, # 30 tab(s), Refills(s) 11, Pharmacy: [facility] #[id number], 180, cm, 02/25/22 14:22:00 EDT, Height/Length [...] Daily, # 90 cap(s), Refills(s) 3, Pharmacy: [facility]/pharmacy #[id number], 180, cm, 08/19/22 9:50:00 EST, Height/Length Dosing, 136.2, kg, 08/19/22 9:50:00 EST, Weight Dosing Start Date: 08/19/22 Status: Ordered Start: 02-25-2022 take 1 capsule by mo [facility] once daily hydrochlorothiazide 12.5 mg Cap 12.5 mg = 1 cap(s), Oral, Daily, # 30 cap(s), Refills(s) 6, Pharmacy: [facility] #[id number], 180, cm, 02/25/22 14:22:00 EDT, Height/Length [...] PO Twice daily January 02, 2018 9:35am Vhwroxsy-Pma-Ps-Lycopen-Lute in (Centrum Silver) 0.4-300-250 mg-mcg-mcg Tablet (1 source) Start: 09-02-2019 take 1 tablet by mouth once daily Crnjljus-Hte-Ry-Lycopen-Lutein (Centrum Silver) 0.4-300-250 mg-mcg-mcg Tablet Active 1 [...] 1 tab(s), Oral, BID, 60 tab(s), Refill(s) , [facility]/pharmacy #[id number], 180, cm, 04/11/23 11:56:00 EDT, [...] BID, # 90 tab(s), Refills(s) 3, Pharmacy: [facility]/pharmacy #[id number], 180, cm, 08/19/22 9:50:00 EST, Height/Length Dosing, 136.2, kg, 08/19/22 9:50:00 EST, Weight Dosing Start Date: 08/19/22 Status: Ordered solifenacin succinate 10 mg oral tablet (2 sources) Cholinergic Muscarinic Antagonist Start: 04-08-2022 End: 12-23-2024 take 1 tablet by mouth once daily Vesicare 10 mg Tab 10 mg = 1 tab(s), Oral, Daily, X 90 day(s), # 90 tab(s), Refills(s) 11, Pharmacy: [facility] #[id number], 180, cm, 02/25/22 14:22:00 EDT, Height/Length Dosing, 135, kg, 02/25/22 14:22:00 EDT, Weight Dosing Start Date: 04/08/22 Stop Date: 12/23/24 Status: Ordered Start: 02-25-2022 take 1 tablet by isa th once daily Vesicare 10 mg Tab 10 mg = 1 tab(s), Oral, Daily, # 30 tab(s), Refills(s) 11, Pharmacy: [facility]/pharmacy #[id number], 180, cm, 02/25/22 14:22:00 EDT, Height/Length Dosing, 135, kg, 02/25/22 14:22:00 EDT, Weight Dosing Start Date: 02/25/22 Status: Ordered tadalafil 20 mg oral tablet (3 sources) Phosphodiesterase 5 Inhibitor Start: 10-23-2021 take 1 tablet by mouth once daily Cialis 20 mg Tab 20 mg = 1 tab(s), Oral, Daily, # 30 tab(s), Refills(s) 6, Pharmacy: [facility]/pharmacy #[id number], 180, cm, 10/22/21 14:56:00 EDT, [...] Daily, # 90 cap(s), Refills(s) 3, Pharmacy: [facility]/pharmacy #[id number], 180, cm, 04/11/23 11:56:00 EDT, [...] Coronary atherosclerosis; Translations: [Atherosclerotic heart disease of [place] coronary artery without angina pectoris] Onset: 11-05-2021 [...] Onset: 08-01-2022 Chronic Other 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) 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; Translations: [JAIL CURRENT USE OF ASPIRIN] Onset: 08-01-2022 Episodic Other 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) Other snf (current) 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; 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 8 oz (237 mL) of milk, mtruuqc-xvnlxjriauum-dmzr y milk, and calcium-fortifiedfruit juice. Calcium-fortified means [...] Spinach (cooked), rhubarb, beets, sweet potatoes, and [place] chard. ? Peanuts. ? Potato chips, albanian fries, and baked potatoes with skin on. ? Nuts and nut products. ? Chocolate. ? If you regularly take a diuretic medicine, make sure to eat at least 1 or 2 servings of fruits or vegetables that are high in potassium each day. These include: ? Avocado. ? Banana. ? [place], prune, carrot, or tomato juice. ? Baked [...] fish oil, or vitamin B6. ? Take nnua-dhr-tpahbek and prescription medicines only as told by your health care provider. These include supplements. What foods should I limit? Limit your in (more content not included)... Normal [facility] Urology Office/Clinic Noteon 04-11-2023 Urology Office/Clinic [...] With When Contact Information Miki ZENG MD, URL In 1 year [facility] [address], [place] [address]- Additional Instructions: Patient Education Dietary Guidelines to Help Prevent Kidney Stone (more content not included)... Normal [facility] Comment on above: Result Comment: Elec tronically Signed By: Miki ZENG MD\.br\Date and Time Signed: 04/11/23 12:49 EDT\.br\Electronically Co-Signed By: Sherice Cloud\.br\Date and Time Co-Signed: 04/11/23 12:48 EDT RAD - Ultrasound Reporton RAD - Ultrasound Report [id number]:12 7 Normal [facility] RAD - Ultrasound Report [id number]:12 7 Normal [facility] CBC AUTO DIFFon 07-27-2022 BASO # 0.1 103/ul Normal 0.0-0.1 [facility] Comment on above: Performed By: #### U DINA, LIPID, TSH, BNP, CMP, T7 #### [facility] [address] [address] [address] Suzie Brooks Basophils/100 WBC (Bld) 0.5 % Normal 0.2-2.0 [facility] Comment on above: Performed By: #### U DINA, LIPID, TSH, BNP, CMP, T7 #### [facility] [address] [place] [address] Dr. Suzie Brooks EO # 0.4 103/ul Normal 0.0-0.7 [facility] Comment on above: Performed By: #### U DINA, LIPID, TSH, BNP, CMP, T7 #### [facility] [address] [place] [address] Dr. Suzie Brooks Eosinophils/100 WBC (Bld) 3.3 % Normal 0.9-7.0 [facility] Comment on above: Performed By: #### U DINA, LIPID, TSH, BNP, CMP, T7 #### [facility] [address] [place] [address] Dr. Suzie Brooks Erythrocyte distribution width (RBC) [Ratio] 14.6 % Normal 11.0-15.0 [facility] Comment on above: Performed By: #### U DINA, LIPID, TSH, BNP, CMP, T7 #### [facility] [address] [place] [address] Dr. Suzie Brooks Hematocrit (Bld) [Volume fraction] 42.0 % Normal 42.0-54.0 [facility] Comment on above: Performed By: #### U DINA, LIPID, TSH, BNP, CMP, T7 #### [facility] [address] [place] [address] Dr. Suzie Brooks Hemoglobin (Bld) [Mass/Vol] 14.1 g/dL Normal 14.0-18.0 [facility] Comment on above: Performed By: #### U DINA, LIPID, TSH, BNP, CMP, T7 #### [facility] [address] [address] [address] Suzie Brooks IG # 0.03 10e3/ul Normal 0.00-0.03 [facility] Comment on above: Performed By: #### U DINA, LIPID, TSH, BNP, CMP, T7 #### [facility] [address] [place] [address] Dr. Suzie Brooks IG % 0.3 % Normal 0.0-0.5 [facility] Comment on above: Performed By: #### U DINA, LIPID, TSH, BNP, CMP, T7 #### [facility] [address] [place] [address] Dr. Suzie Brooks LYMPH # 3.1 103/ul Normal 1.2-3.8 [facility] Comment on above: Performed By: #### U DINA, LIPID, TSH, BNP, CMP, T7 #### [facility] [address] [place] [address] Dr. Suzie Brooks Lymphocytes/100 WBC (Bld) 28.2 % Normal 20.5-60.0 [facility] Comment on above: Performed By: #### U DINA, LIPID, TSH, BNP, CMP, T7 #### [facility] [address] [place] [address] Dr. Suzie Brooks MANUAL DIFF REQ NO Normal [facility] Comment on above: Performed By: #### U DINA, LIPID, TSH, BNP, CMP, T7 #### [facility] [address] [place] [address] Dr. Suzie Brooks MCH (RBC) [Entitic mass] 28.5 pg Normal 25.9-34.0 [facility] Comment on above: Performed By: #### U DINA, LIPID, TSH, BNP, CMP, T7 #### [facility] [address] [place] [address] Dr. Suzie Brooks MCHC (RBC) [Mass/Vol] 33.6 g/dL Normal 29.9-35.2 [facility] Comment on above: Performed By: #### U DINA, LIPID, TSH, BNP, CMP, T7 #### [facility] [address] [place] [address] Dr. Suzie Brooks MCV (RBC) [Entitic vol] 85.0 fL Normal 80.0-94.0 [facility] Comment on above: Performed By: #### U DINA, LIPID, TSH, BNP, CMP, T7 #### [facility] [address] [address] [address] Suzie Brooks MONO # 0.8 103/ul Normal 0.3-0.8 [facility] Comment on above: Performed By: #### U DINA, LIPID, TSH, BNP, CMP, T7 #### [facility] [address] [place] [address] Dr. Suzie Brooks Monocytes/100 WBC (Bld) 7.2 % Normal 1.7-12.0 [facility] Comment on above: Performed By: #### U DINA, LIPID, TSH, BNP, CMP, T7 #### [facility] [address] [place] [address] Dr. Suzie Brooks NEUT # 6.7 103/ul Critically high 1.4-6.5 [facility] Comment on above: Performed By: #### U DINA, LIPID, TSH, BNP, CMP, T7 #### [facility] [address] [place] [address] Dr. Suzie Brooks Neutrophils/100 WBC (Bld) 60.5 % Normal 43.0-75.0 [facility] Comment on above: Performed By: #### U DINA, LIPID, TSH, BNP, CMP, T7 #### [facility] [address] [place] [address] Dr. Suzie Brooks Platelet mean volume (Bld) [Entitic vol] 9.6 fL Normal 9.5-13.5 [facility] Comment on above: Performed By: #### U DINA, LIPID, TSH, BNP, CMP, T7 #### [facility] [address] [place] [address] Dr. Suzie Brooks PLT 266 103/ul Normal 150-450 [facility] Comment on above: Performed By: #### U DINA, LIPID, TSH, BNP, CMP, T7 #### [facility] [address] [place] [address] Dr. Suzie Brooks RBC 4.94 106/ul Normal 4.70-6.10 [facility] Comment on above: Performed By: #### U DINA, LIPID, TSH, BNP, CMP, T7 #### [facility] [address] [place] [address] Dr. Suzie Brooks WBC 11.1 103/ul Critically high 4.0-11.0 [facility] Comment on above: Performed By: #### U DINA, LIPID, TSH, BNP, CMP, T7 #### [facility] [address] [place] [address] Dr. Suzie Brooks PROF 14(COMP METB)on 022 Albumin [Mass/Vol] 3.2 g/dL Critically low 3.4-5.0 [facility] Comment on above: Performed By: #### C VDTBH #### [facility] [address] [place] [address] Dr. Suzie Brooks Albumin/Globulin [Mass ratio] 0.9 {ratio} Normal [facility] Comment on above: Performed By: #### C VDTBH #### [facility] [address] [place] [address] Dr. Suzie Brooks ALP [Catalytic activity/Vol] 60 U/L Normal 46-116 [facility] Comment on above: Performed By: #### C VDTBH #### [facility] [address] [place] [address] Dr. Suzie Brooks ALT [Catalytic activity/Vol] 27 U/L Normal 16-63 [facility] Comment on above: Performed By: #### C VDTBH #### [facility] [address] [place] [address] Dr. Suzie Brooks Anion gap [Moles/Vol] 10.4 mmol/L Normal [facility] Comment on above: Performed By: #### C VDTBH #### [facility] [address] [place] [address] Dr. Suzie Brooks AST [Catalytic activity/Vol] 23 U/L Normal 15-37 [facility] Comment on above: Performed By: #### C VDTBH #### [facility] [address] [place] [address] Dr. Suzie Brooks Bilirubin [Mass/Vol] 0.4 mg/dL Normal 0.2-1.0 [facility] Comment on above: Performed By: #### C VDTBH #### [facility] [address] [place] [address] Dr. Suzie Brooks Calcium [Mass/Vol] 8.4 mg/dL Critically low 8.5-10.1 [facility] Comment on above: Performed By: #### C VDTBH #### [facility] [address] [place] [address] Dr. Suzie Brooks Chloride [Moles/Vol] 104 mmol/L Normal 98-107 [facility] Comment on above: Performed By: #### C VDTBH #### [facility] [address] [place] [address] Dr. Suzie Brooks CO2 [Moles/Vol] 26.1 mmol/L Normal 21.0-32.0 [facility] Comment on above: Performed By: #### C VDTBH #### [facility] [address] [place] [address] Dr. Suzie Brooks Creatinine [Mass/Vol] 0.90 mg/dL Normal 0.70-1.30 [facility] Comment on above: Performed By: #### C VDTBH #### [facility] [address] [place] [address] Dr. Suzie Brooks EGFR-AF [facility] LUCIAN >60 Normal >=60 [facility] Comment on above: Performed By: #### C VDTBH #### [facility] [address] [place] [address] Dr. Suzie Brooks EGFR-NON AF [facility] LUCIAN >60 Normal >=60 [facility] Comment on above: Performed By: #### C VDTBH #### [facility] [address] [place] [address] Dr. Suzie Brooks Globulin (S) [Mass/Vol] 3.4 g/dL Normal [facility] Comment on above: Performed By: #### C VDTBH #### [facility] [address] [place] [address] Dr. Suzie Brooks Glucose [Mass/Vol] 111 mg/dL Critically high 74-106 T [facility] Comment on above: Performed By: #### C VDTBH #### [facility] [address] [place] [address] Dr. Suzie Brooks Potassium [Moles/Vol] 3.5 mmol/L Normal 3.5-5.1 [facility] Comment on above: Performed By: #### C VDTBH #### [facility] [address] [place] [address] Dr. Suzie Brooks Protein [Mass/Vol] 6.6 g/dL Normal 6.4-8.2 [facility] Comment on above: Performed By: #### C VDTBH #### [facility] [address] [place] [address] Dr. Suzie Brooks Sodium [Moles/Vol] 137 mmol/L Normal 136-145 [facility] Comment on above: Performed By: #### C VDTBH #### [facility] [address] [place] [address] Dr. Suzie Brooks Urea nitrogen [Mass/Vol] 13.0 mg/dL Normal 7.0-18.0 [facility] Comment on above: Performed By: #### C VDTBH #### [facility] [address] [place] [address] Dr. Suzie Brooks Urea nitrogen/Creatinine [Mass ratio] 14.4 mg/mg Normal [facility] Comment on above: Performed By: #### C VDTBH #### [facility] [address] [place] [address] Dr. Suzie Brooks BNPon 07-26-2022 Natriuretic peptide B (Bld) [Mass/Vol] 118.0 pg/mL Normal <=900.0 [facility] Comment on above: Performed By: #### U DINA, LIPID, TSH, BNP, CMP, T7 #### [facility] [address] [address] [address] Suzie Brooks CARDIAC MJ 3-6on 2 CK [Catalytic activity/Vol] 240 U/L Normal 39-308 [facility] Comment on above: Performed By: #### U DINA, LIPID, TSH, BNP, CMP, T7 #### [facility] [address] [address] [address] Suzie Brooks CK.MB [Mass/Vol] 3.43 ng/mL Normal <=3.60 [facility] Comment on above: Performed By: #### U DINA, LIPID, TSH, BNP, CMP, T7 #### [facility] [address] [address] [address] Suzie Brooks HSTROP 8.6 pg/mL Normal 4.0-76.1 [facility] Comment on above: Result Comment: CUT- OFF POINTS HAVE BEEN ESTABLISHED BASED ON THE FOURTH UNIVERSAL DEFINITIONS OF MYOCARDIAL INFARCTION. THE UPPER REFERENCE LIMIT (URL) OF TROPONIN, DEFINED THE 99TH PERCENTILE OF cTnI DISTRIBUTION IN A REFERENCE POPULATION, HAS BEEN CONFIRMED THE DECISION THRESHOLD FOR [place] DIAGNOSIS. Performed By: #### U DINA, LIPID, TSH, BNP, CMP, T7 #### [facility] [address] [address] [address] Suzie Brooks CK [Catalytic activity/Vol] 239 U/L Normal 39-308 [facility] Comment on above: Performed By: #### M AG24 #### [facility] [address] [address] [address] Suzie Brooks CK.MB [Mass/Vol] 2.93 ng/mL Normal <=3.60 [facility] Comment on above: Performed By: #### M AG24 #### [facility] [address] [place] [address] Dr. Suzie Brooks HSTROP 10.4 pg/mL Normal 4.0-76.1 [facility] Comment on above: Result Comment: CUT- OFF POINTS HAVE BEEN ESTABLISHED BASED ON THE FOURTH UNIVERSAL DEFINITIONS OF MYOCARDIAL INFARCTION. THE UPPER REFERENCE LIMIT (URL) OF TROPONIN, DEFINED THE 99TH PERCENTILE OF cTnI DISTRIBUTION IN A REFERENCE POPULATION, HAS BEEN CONFIRMED THE DECISION THRESHOLD FOR [place] DIAGNOSIS. Performed By: #### M AG24 #### [facility] [address] [address] [address] Suzie Brooks CARDIAC MJ ADMITon 022 CK [Catalytic activity/Vol] 234 U/L Normal 39-308 [facility] Comment on above: Performed By: #### O [id number] #### [facility] [address] [address] [address] Suzie Brooks CK.MB [Mass/Vol] 3.37 ng/mL Normal <=3.60 [facility] Comment on above: Performed By: #### O X24HR #### [facility] [address] [place] [address] Dr. Suzie Brooks HSTROP 9.0 pg/mL Normal 4.0-76.1 [facility] Comment on above: Result Comment: CUT- OFF POINTS HAVE BEEN ESTABLISHED BASED ON THE FOURTH UNIVERSAL DEFINITIONS OF MYOCARDIAL INFARCTION. THE UPPER REFERENCE LIMIT (URL) OF TROPONIN, DEFINED THE 99TH PERCENTILE OF cTnI DISTRIBUTION IN A REFERENCE POPULATION, HAS BEEN CONFIRMED THE DECISION THRESHOLD FOR [place] DIAGNOSIS. Performed By: #### O X24HR #### [facility] [address] [place] [address] Dr. Suzie Brooks EDIE 85 ng/mL Normal 16-96 [facility] Comment on above: Performed By: #### O X24HR #### [facility] [address] [place] [address] Dr. Suzie Brooks CBC AUTO DIFFon 07-26-2022 BASO # 0.1 103/ul Normal 0.0-0.1 [facility] Comment on above: Performed By: #### U DINA, LIPID, TSH, BNP, CMP, T7 #### [facility] [id number] Suzei Brooks Basophils/100 WBC (Bld) 0.4 % Normal 0.2-2.0 [facility] Comment on above: Performed By: #### U DINA, LIPID, TSH, BNP, CMP, T7 #### [facility] [address] [place] [address] Dr. Suzie Brooks EO # 0.3 103/ul Normal 0.0-0.7 [facility] Comment on above: Performed By: #### U DINA, LIPID, TSH, BNP, CMP, T7 #### [facility] [address] [place] [address] Dr. Suzie Brooks Eosinophils/100 WBC (Bld) 2.5 % Normal 0.9-7.0 [facility] Comment on above: Performed By: #### U DINA, LIPID, TSH, BNP, CMP, T7 #### [facility] [address] [place] [address] Dr. Suzie Brooks Erythrocyte distribution width (RBC) [Ratio] 14.4 % Normal 11.0-15.0 [facility] Comment on above: Performed By: #### U DINA, LIPID, TSH, BNP, CMP, T7 #### [facility] [address] [place] [address] Dr. Suzie Brooks Hematocrit (Bld) [Volume fraction] 46.0 % Normal 42.0-54.0 [facility] Comment on above: Performed By: #### U DINA, LIPID, TSH, BNP, CMP, T7 #### [facility] [address] [place] [address] Dr. Suzie Brooks Hemoglobin (Bld) [Mass/Vol] 15.6 g/dL Normal 14.0-18.0 [facility] Comment on above: Performed By: #### U DINA, LIPID, TSH, BNP, CMP, T7 #### [facility] [address] [place] [address] Dr. Suzie Brooks IG # 0.07 10e3/ul Critically high 0.00-0.03 [facility] Comment on above: Performed By: #### U DINA, LIPID, TSH, BNP, CMP, T7 #### [facility] [address] [place] [address] Dr. Suzie Brooks IG % 0.6 % Critically high 0.0-0.5 [facility] Comment on above: Performed By: #### U DINA, LIPID, TSH, BNP, CMP, T7 #### [facility] [address] [place] [address] Dr. Suzie Brooks LYMPH # 2.9 103/ul Normal 1.2-3.8 [facility] Comment on above: Performed By: #### U DINA, LIPID, TSH, BNP, CMP, T7 #### [facility] [address] [address] [address] Suzie Brooks Lymphocytes/100 WBC (Bld) 24.2 % Normal 20.5-60.0 [facility] Comment on above: Performed By: #### U DINA, LIPID, TSH, BNP, CMP, T7 #### [facility] [address] [place] [address] Dr. Suzie Brooks MANUAL DIFF REQ NO Normal [facility] Comment on above: Performed By: #### U DINA, LIPID, TSH, BNP, CMP, T7 #### [facility] [address] [place] [address] Dr. Suzie Brooks MCH (RBC) [Entitic mass] 28.6 pg Normal 25.9-34.0 [facility] Comment on above: Performed By: #### U DINA, LIPID, TSH, BNP, CMP, T7 #### [facility] [address] [place] [address] Dr. Suzie Brooks MCHC (RBC) [Mass/Vol] 33.9 g/dL Normal 29.9-35.2 [facility] Comment on above: Performed By: #### U DINA, LIPID, TSH, BNP, CMP, T7 #### [facility] [address] [place] [address] Dr. Suzie Brooks MCV (RBC) [Entitic vol] 84.4 fL Normal 80.0-94.0 [facility] Comment on above: Performed By: #### U DINA, LIPID, TSH, BNP, CMP, T7 #### [facility] [address] [place] [address] Dr. Suzie Brooks MONO # 0.8 103/ul Normal 0.3-0.8 [facility] Comment on above: Performed By: #### U DINA, LIPID, TSH, BNP, CMP, T7 #### [facility] [address] [place] [address] Dr. Suzie Brooks Monocytes/100 WBC (Bld) 6.7 % Normal 1.7-12.0 [facility] Comment on above: Performed By: #### U DINA, LIPID, TSH, BNP, CMP, T7 #### [facility] [address] [address] [address] Suzie Brooks NEUT # 7.8 103/ul Critically high 1.4-6.5 [facility] Comment on above: Performed By: #### U DINA, LIPID, TSH, BNP, CMP, T7 #### [facility] [address] [address] [address] Suzie Brooks Neutrophils/100 WBC (Bld) 65.6 % Normal 43.0-75.0 [facility] Comment on above: Performed By: #### U DINA, LIPID, TSH, BNP, CMP, T7 #### [facility] [address] [address] [address] Suzie Brooks Platelet mean volume (Bld) [Entitic vol] 9.7 fL Normal 9.5-13.5 [facility] Comment on above: Performed By: #### U DINA, LIPID, TSH, BNP, CMP, T7 #### [facility] [address] [address] [address] Suzie Brooks PLT 289 103/ul Normal 150-450 [facility] Comment on above: Performed By: #### U DINA, LIPID, TSH, BNP, CMP, T7 #### [facility] [address] [address] [address] Suzie Brooks RBC 5.45 106/ul Normal 4.70-6.10 [facility] Comment on above: Performed By: #### U DINA, LIPID, TSH, BNP, CMP, T7 #### [facility] [address] [address] [address] Suzie Brooks WBC 11.9 103/ul Critically high 4.0-11.0 [facility] Comment on above: Performed By: #### U DINA, LIPID, TSH, BNP, CMP, T7 #### [facility] [address] [address] [address] Suzie Brooks CTA CHEST WO W Livia 07-26- 022 CTA CHEST WO W CON EXAMINATION: [...] BEHZAD CARRASQUILLO Date: 2022-07-26 11:59 Normal [facility]11 SARS-CoV-2 (COVID-19) RNA SUKHJINDER+probe Ql (Unsp spec) Not detected Normal NOT DETECTED [facility] Comment on above: Result Comment: When [...] for this test is supported by the Financial Analysis Consultant of Health and Human Service's declaration that [...] DINA, LIPID, TSH, BNP, CMP, T7 #### [facility] [address] [place], [place] [address] Dr. Suzie Brooks D-DIMERon 07-26-2022 D-DIMER 0.88 mg/L FEU Critically high <=0.59 [facility] Comment on above: Performed By: #### C VDTBH #### [facility] [address] [place], [place] [address] Dr. Suzie Brooks D-DIMER COMMENTS SEE BELOW Normal [facility] Comment on above: Result Comment: Incr eases [...] hospitalization. Performed By: #### C VDTBH #### [facility] [address] [place] [address] [id number] [address] Suzie Brooks ECHOCARDIO M/2D COMPLETEon 1 09-26-2021 ECHOCARDIO M/2D COMPLETE Patient: TOM APARICIO Exam Date: 07/26/2022 : 1950 Gender:M Ordering : DR MARIELLE LERMA . Admission #: [id number] Family : Order #: [id number] CLICK HERE TO VIEW EXAM ECHOCARDIOGRAM REPORT [...] Rios M.D. on 07/26/2022 at 16:22 Normal [facility] PROF 14(COMP METB)on 07-26- 022 Albumin [Mass/Vol] 3.6 g/dL Normal 3.4-5.0 [facility] Comment on above: Performed By: #### U DINA, LIPID, TSH, BNP, CMP, T7 #### [facility] [address] [address] [address] Suzie Brooks Albumin/Globulin [Mass ratio] 0.9 {ratio} Normal [facility] Comment on above: Performed By: #### U DINA, LIPID, TSH, BNP, CMP, T7 #### [facility] [address] [place] [address] Dr. Suzie Brooks ALP [Catalytic activity/Vol] 70 U/L Normal 46-116 [facility] Comment on above: Performed By: #### U DINA, LIPID, TSH, BNP, CMP, T7 #### [facility] [address] [address] [address] Suzie Brooks ALT [Catalytic activity/Vol] 30 U/L Normal 16-63 [facility] Comment on above: Performed By: #### U DINA, LIPID, TSH, BNP, CMP, T7 #### [facility] [address] [address] [address] Suzie Brooks Anion gap [Moles/Vol] 9.2 mmol/L Normal [facility] Comment on above: Performed By: #### U DINA, LIPID, TSH, BNP, CMP, T7 #### [facility] [address] [place] [address] Dr. Suzie Brooks AST [Catalytic activity/Vol] 29 U/L Normal 15-37 [facility] Comment on above: Performed By: #### U DINA, LIPID, TSH, BNP, CMP, T7 #### [facility] [address] [address] [address] Suzie Brooks Bilirubin [Mass/Vol] 0.5 mg/dL Normal 0.2-1.0 [facility] Comment on above: Performed By: #### U DINA, LIPID, TSH, BNP, CMP, T7 #### [facility] [address] [address] [address] Suzie Brooks Calcium [Mass/Vol] 8.8 mg/dL Normal 8.5-10.1 [facility] Comment on above: Performed By: #### U DINA, LIPID, TSH, BNP, CMP, T7 #### [facility] [address] [address] [address] Suzie Brooks Chloride [Moles/Vol] 102 mmol/L Normal 98-107 [facility] Comment on above: Performed By: #### U DINA, LIPID, TSH, BNP, CMP, T7 #### [facility] [address] [place] [address] Dr. Suzie Brooks CO2 [Moles/Vol] 27.2 mmol/L Normal 21.0-32.0 [facility] Comment on above: Performed By: #### U DINA, LIPID, TSH, BNP, CMP, T7 #### [facility] [address] [place] [address] Dr. Suzie Brooks Creatinine [Mass/Vol] 0.99 mg/dL Normal 0.70-1.30 [facility] Comment on above: Performed By: #### U DINA, LIPID, TSH, BNP, CMP, T7 #### [facility] [address] [place] [address] Dr. Suzie Brooks EGFR-AF ST LUCIAN >60 Normal >=60 [facility] Comment on above: Performed By: #### U DINA, LIPID, TSH, BNP, CMP, T7 #### [facility] [address] [place] [address] Dr. Suzie Brooks EGFR-NON AF [facility] LUCIAN >60 Normal >=60 [facility] Comment on above: Performed By: #### U DINA, LIPID, TSH, BNP, CMP, T7 #### [facility] [address] [place] [address] Dr. Suzie Brooks Globulin (S) [Mass/Vol] 3.9 g/dL Normal [facility] Comment on above: Performed By: #### U DINA, LIPID, TSH, BNP, CMP, T7 #### [facility] [address] [place] [address] Dr. Suzie Brooks Glucose [Mass/Vol] 125 mg/dL Critically high 74-106 T [facility] Comment on above: Performed By: #### U DINA, LIPID, TSH, BNP, CMP, T7 #### [facility] [address] [place] [address] Dr. Suzie Brooks Potassium [Moles/Vol] 3.4 mmol/L Critically low 3.5-5.1 [facility] Comment on above: Performed By: #### U DINA, LIPID, TSH, BNP, CMP, T7 #### [facility] [address] [address] [address] Suzie Brooks Protein [Mass/Vol] 7.5 g/dL Normal 6.4-8.2 [facility] Comment on above: Performed By: #### U DINA, LIPID, TSH, BNP, CMP, T7 #### [facility] [address] [place] [address] Dr. Suzie Brooks Sodium [Moles/Vol] 135 mmol/L Critically low 136-145 [facility] Comment on above: Performed By: #### U DINA, LIPID, TSH, BNP, CMP, T7 #### [facility] [address] [place] [address] Dr. Suzie Brooks Urea nitrogen [Mass/Vol] 15.0 mg/dL Normal 7.0-18.0 [facility] Comment on above: Performed By: #### U DINA, LIPID, TSH, BNP, CMP, T7 #### [facility] [address] [place] [address] Dr. Suzie Brooks Urea nitrogen/Creatinine [Mass ratio] 15.2 mg/mg Normal [facility] Comment on above: Performed By: #### U DINA, LIPID, TSH, BNP, CMP, T7 #### [facility] [address] [place] [address] Dr. Suzie Brooks PROTIMEon 07-26-2022 INR Coag (PPP) [Relative time] 0.95 {INR} Normal [facility] Comment on above: Performed By: #### C VDTBH #### [facility] [address] [place] [address] [id number] [address] Suzie Brooks INR GUIDELINES SEE BELOW Normal [facility] Comment on above: Result Comment: TOMMY RED INR: 2.0 - 3.0 CONDITIONS NOT LISTED BELOW 2.5 - 3.5 FOR PROSTHETIC HEART VALVE REPLACEMENT 2.5 - 3.5 RECURRENT THROMBOSIS Performed By: #### C VDTBH #### [facility] [address] [place] [address] Dr. Suzie Brooks PT Coag (PPP) [Time] 10.3 s Normal 9.0-11.6 [facility] Comment on above: Performed By: #### C VDTBH #### [facility] [address] [place] [address] Dr. Suzie Brooks PTTon 07-26-2022 aPTT Coag (Bld) [Time] 28.2 s Normal 22.3-36.2 [facility] Comment on above: Performed By: #### C VDTBH #### [facility] [address] [place] [address] Dr. Suzie Brooks TSHon 07-26-2022 TSH 2.000 uIU/mL Normal 0.358-3.740 [facility] Comment on above: Performed By: #### O [id number] #### [facility] [address] [place], [place] [id number] Dr. Suzie Brooks XR CHEST 1 Von [...] by: BEHZAD CARRASQUILLO Date: 2022-07-26 10:51 Normal [facility] CREATININEon 07-18-2022 Creatinine [Mass/Vol] 0.93 mg/dL Normal 0.70-1.30 [facility] Comment on above: Performed By: #### U DINA, LIPID, TSH, BNP, CMP, T7 #### [facility] [address] [place], [place] [address] Dr. Suzie Brooks EGFR-AF ST LUCIAN >60 Normal >=60 [facility] Comment on above: Performed By: #### U DINA, LIPID, TSH, BNP, CMP, T7 #### [facility] [address] [place], [place] [address] Dr. Suzie Brooks EGFR-NON AF [facility] LUCIAN >60 Normal >=60 [facility] Comment on above: Performed By: #### U DINA, LIPID, TSH, BNP, CMP, T7 #### [facility] [address] [address] [address] Suzie Brooks XR IVPon 07-18-2022 XR IVP EXAMINATION: XR IVP HISTORY: Kidney stone COMPARISON: XR KUB 11/21/2021, CT abdomen pelvis 02/16/2022 TECHNIQUE: After obtaining patient consent a interpersonal communications professor image was obtained followed by injection of [...] by: BEHZAD CARRASQUILLO Date: 2022-07-18 11:50 Normal [facility] INSULINon 05-16-2022 Insulin 59.0 uIU/mL Critically high 2.6-24.9 [facility] Comment on above: Performed By: #### U DINA, LIPID, TSH, BNP, CMP, T7 #### [facility] [address] [place] [address] Dr. Suzie Brooks BNPon 05-15-2022 Natriuretic peptide B (Bld) [Mass/Vol] 81.0 pg/mL Normal <=900.0 [facility] Comment on above: Performed By: #### U DINA, LIPID, TSH, BNP, CMP, T7 #### [facility] [address] [place] [address] Dr. Suzie Brooks CBC AUTO DIFFon 05-15-2022 BASO # 0.1 103/ul Normal 0.0-0.1 [facility] Comment on above: Performed By: #### C VDTBH #### [facility] [address] [place] [address] Dr. Suzie Brooks Basophils/100 WBC (Bld) 0.6 % Normal 0.2-2.0 [facility] Comment on above: Performed By: #### C VDTBH #### [facility] [address] [place] [address] Dr. Suzie Brooks EO # 0.3 103/ul Normal 0.0-0.7 [facility] Comment on above: Performed By: #### C VDTBH #### [facility] [address] [place] [address] Dr. Suzie Brooks Eosinophils/100 WBC (Bld) 2.9 % Normal 0.9-7.0 [facility] Comment on above: Performed By: #### C VDTBH #### [facility] [address] [place] [address] Dr. Suzie Brooks Erythrocyte distribution width (RBC) [Ratio] 14.1 % Normal 11.0-15.0 [facility] Comment on above: Performed By: #### C VDTBH #### [facility] [address] [place] [address] Dr. Suzie Brooks Hematocrit (Bld) [Volume fraction] 46.7 % Normal 42.0-54.0 [facility] Comment on above: Performed By: #### C VDTBH #### [facility] [address] [place] [address] Dr. Suzie Brooks Hemoglobin (Bld) [Mass/Vol] 15.4 g/dL Normal 14.0-18.0 [facility] Comment on above: Performed By: #### C VDTBH #### [facility] [address] [place] [address] Dr. Suzie Brooks IG # 0.03 10e3/ul Normal 0.00-0.03 [facility] Comment on above: Performed By: #### C VDTBH #### [facility] [address] [place] [address] Dr. Suzie Brooks IG % 0.3 % Normal 0.0-0.5 [facility] Comment on above: Performed By: #### C VDTBH #### [facility] [address] [place] [address] Dr. Suzie Brooks LYMPH # 2.6 103/ul Normal 1.2-3.8 [facility] Comment on above: Performed By: #### C VDTBH #### [facility] [address] [place] [address] Dr. Suzie Brooks Lymphocytes/100 WBC (Bld) 25.1 % Normal 20.5-60.0 [facility] Comment on above: Performed By: #### C VDTBH #### [facility] [address] [place] [address] Dr. Suzie Brooks MANUAL DIFF REQ NO Normal [facility] Comment on above: Performed By: #### C VDTBH #### [facility] [address] [place] [address] Dr. Suzie Brooks MCH (RBC) [Entitic mass] 28.6 pg Normal 25.9-34.0 [facility] Comment on above: Performed By: #### C VDTBH #### [facility] [address] [place] [address] Dr. Suzie Brooks MCHC (RBC) [Mass/Vol] 33.0 g/dL Normal 29.9-35.2 [facility] Comment on above: Performed By: #### C VDTBH #### [facility] [address] [place] [address] Dr. Suzie Brooks MCV (RBC) [Entitic vol] 86.8 fL Normal 80.0-94.0 [facility] Comment on above: Performed By: #### C VDTBH #### [facility] [address] [place] [address] Dr. Suzie Brooks MONO # 0.7 103/ul Normal 0.3-0.8 [facility] Comment on above: Performed By: #### C VDTBH #### [facility] [address] [place] [address] Dr. Suzie Brooks Monocytes/100 WBC (Bld) 6.8 % Normal 1.7-12.0 [facility] Comment on above: Performed By: #### C VDTBH #### [facility] [address] [place] [address] Dr. Suzie Brooks NEUT # 6.5 103/ul Normal 1.4-6.5 [facility] Comment on above: Performed By: #### C VDTBH #### [facility] [address] [place] [address] Dr. Suzie Brooks Neutrophils/100 WBC (Bld) 64.3 % Normal 43.0-75.0 [facility] Comment on above: Performed By: #### C VDTBH #### [facility] [address] [place] [address] Dr. Suzie Brooks Platelet mean volume (Bld) [Entitic vol] 9.5 fL Normal 9.5-13.5 [facility] Comment on above: Performed By: #### C VDTBH #### [facility] [address] [place] [address] Dr. Suzie Brooks PLT 273 103/ul Normal 150-450 [facility] Comment on above: Performed By: #### C VDTBH #### [facility] [address] [place] [address] Dr. Suzie Brooks RBC 5.38 106/ul Normal 4.70-6.10 [facility] Comment on above: Performed By: #### C VDTBH #### [facility] [address] [place] [address] Dr. Suzie Brooks WBC 10.2 103/ul Normal 4.0-11.0 [facility] Comment on above: Performed By: #### C VDTBH #### [facility] [address] [place] [address] Dr. Suzie Brooks FREE THYROXINE INDEX T7on FTI 2.23 Normal 1.30-4.50 [facility] Comment on above: Performed By: #### U DINA, LIPID, TSH, BNP, CMP, T7 #### [facility] [address] [place] [address] Dr. Suzie Brooks T3U 36.0 % Normal 33.0-40.0 [facility] Comment on above: Performed By: #### U DINA, LIPID, TSH, BNP, CMP, T7 #### [facility] [address] [place] [address] Dr. Suzie Brooks T4 [Mass/Vol] 6.20 ug/dL Normal 4.50-12.10 [facility] Comment on above: Performed By: #### U DINA, LIPID, TSH, BNP, CMP, T7 #### [facility] [address] [place] [address] Dr. Suzie Brooks GLYCOHEMOGLOBIN A1Con 2021 ADA RECOMMENDATION SEE BELOW Normal [facility] Comment on above: Result Comment: ADA RECOMMENDED LIMIT 4.0 - 6.0 ADA THERAPEUTIC TARGET < 7.0 ACTION SUGGESTED > 7.0 Performed By: #### U DINA, LIPID, TSH, BNP, CMP, T7 #### [facility] [address] [place] [address] Dr. Suzie Brooks Glucose [Mass/Vol] 111 mg/dL Normal [facility] Comment on above: Performed By: #### U DINA, LIPID, TSH, BNP, CMP, T7 #### [facility] [address] [place] [address] Dr. Suzie Brooks HbA1c (Bld) [Mass fraction] 5.5 % Normal 4.5-6.2 [facility] Comment on above: Performed By: #### U DINA, LIPID, TSH, BNP, CMP, T7 #### [facility] [address] [address] [address] Suzie Brooks LIPID PROFILEon 05-15-2022 CHOL-HDL RATIO NORM SEE BELOW Normal [facility] Comment on above: Result Comment: 3.3 - 4.4 LOW RISK 4.4 - 7.1 AVERAGE RISK 7.1 - 11.0 MODERATE RISK >11.0 HIGH RISK Performed By: #### U DINA, LIPID, TSH, BNP, CMP, T7 #### [facility] [address] [address] [address] Suzie Brooks Cholesterol [Mass/Vol] 136 mg/dL Normal <=200 [facility] Comment on above: Performed By: #### U DINA, LIPID, TSH, BNP, CMP, T7 #### [facility] [address] [address] [address] Suzie Brooks Cholesterol in HDL [Mass/Vol] 34 mg/dL Critically low 40-60 [facility] Comment on above: Performed By: #### U DINA, LIPID, TSH, BNP, CMP, T7 #### [facility] [address] [address] [address] Suzie Brooks Cholesterol in LDL [Mass/Vol] 49.8 mg/dL Normal [facility] Comment on above: Performed By: #### U DINA, LIPID, TSH, BNP, CMP, T7 #### [facility] [address] [address] [address] Suzie Brooks Cholesterol.total/Ch olesterol in HDL [Mass ratio] 4.0 {ratio} Normal [facility] Comment on above: Performed By: #### U DINA, LIPID, TSH, BNP, CMP, T7 #### [facility] [address] [place] [address] Dr. Suzie Brooks HDL NORMAL > or = 60 mg/dl - LO W CARDIOVASCULAR RISK <40 mg/dl - HIGH CARDIOVASCULAR RISK Normal [facility] Comment on above: Performed By: #### U DINA, LIPID, TSH, BNP, CMP, T7 #### [facility] [address] [address] [address] Suzie Brooks LDL CALC NORMAL SEE BELOW Normal [facility] Comment on above: Result Comment: <100 mg/dl OPTIMAL 100 - 129 mg/dl NEAR OR ABOVE OPTIMAL 130 - 159 mg/dl BORDERLINE HIGH 160 - 189 mg/dl HIGH >190 mg/dl VERY HIGH Performed By: #### U DINA, LIPID, TSH, BNP, CMP, T7 #### [facility] [address] [address] [address] Suzie Brooks Triglyceride [Mass/Vol] 261 mg/dL Critically high <=150 [facility] Comment on above: Performed By: #### U DINA, LIPID, TSH, BNP, CMP, T7 #### [facility] [address] [address] [address] Suzie Brooks VLDL CALC 52.2 mg/dL Normal [facility] Comment on above: Performed By: #### U DINA, LIPID, TSH, BNP, CMP, T7 #### [facility] [address] [address] [address] Suzie Brooks PROF 14(COMP METB)on 022 Albumin [Mass/Vol] 3.6 g/dL Normal 3.4-5.0 [facility] Comment on above: Performed By: #### U DINA, LIPID, TSH, BNP, CMP, T7 #### [facility] [address] [address] [address] Suzie Brooks Albumin/Globulin [Mass ratio] 0.9 {ratio} Normal [facility] Comment on above: Performed By: #### U DINA, LIPID, TSH, BNP, CMP, T7 #### [facility] [address] [address] [address] Suzie Brooks ALP [Catalytic activity/Vol] 60 U/L Normal 46-116 [facility] Comment on above: Performed By: #### U DINA, LIPID, TSH, BNP, CMP, T7 #### [facility] [address] [address] [address] Suzie Brooks ALT [Catalytic activity/Vol] 36 U/L Normal 16-63 [facility] Comment on above: Performed By: #### U DINA, LIPID, TSH, BNP, CMP, T7 #### [facility] [address] [address] [address] Suzie Brooks Anion gap [Moles/Vol] 11.7 mmol/L Normal [facility] Comment on above: Performed By: #### U DINA, LIPID, TSH, BNP, CMP, T7 #### [facility] [address] [address] [address] Suzie Brooks AST [Catalytic activity/Vol] 28 U/L Normal 15-37 [facility] Comment on above: Performed By: #### U DINA, LIPID, TSH, BNP, CMP, T7 #### [facility] [address] [place] [address] Dr. Suzie Brooks Bilirubin [Mass/Vol] 0.6 mg/dL Normal 0.2-1.0 [facility] Comment on above: Performed By: #### U DINA, LIPID, TSH, BNP, CMP, T7 #### [facility] [address] [place] [address] Dr. Suzie Brooks Calcium [Mass/Vol] 8.8 mg/dL Normal 8.5-10.1 [facility] Comment on above: Performed By: #### U DINA, LIPID, TSH, BNP, CMP, T7 #### [facility] [address] [place] [address] Dr. Suzie Brooks Chloride [Moles/Vol] 102 mmol/L Normal 98-107 [facility] Comment on above: Performed By: #### U DINA, LIPID, TSH, BNP, CMP, T7 #### [facility] [address] [place] [address] Dr. Suzie Brooks CO2 [Moles/Vol] 27.9 mmol/L Normal 21.0-32.0 [facility] Comment on above: Performed By: #### U DINA, LIPID, TSH, BNP, CMP, T7 #### [facility] [address] [place] [address] Dr. Suzie Brooks Creatinine [Mass/Vol] 0.98 mg/dL Normal 0.70-1.30 [facility] Comment on above: Performed By: #### U DINA, LIPID, TSH, BNP, CMP, T7 #### [facility] [address] [address] [address] Suzie Brooks EGFR-AF ST LUCIAN >60 Normal >=60 [facility] Comment on above: Performed By: #### U DINA, LIPID, TSH, BNP, CMP, T7 #### [facility] [address] [place] [address] Dr. Suzie Brooks EGFR-NON AF [facility] LUCIAN >60 Normal >=60 [facility] Comment on above: Performed By: #### U DINA, LIPID, TSH, BNP, CMP, T7 #### [facility] [address] [place] [address] Dr. Suzie Brooks Globulin (S) [Mass/Vol] 3.8 g/dL Normal [facility] Comment on above: Performed By: #### U DINA, LIPID, TSH, BNP, CMP, T7 #### [facility] [address] [address] [address] Suzie Brooks Glucose [Mass/Vol] 107 mg/dL Critically high 74-106 [facility] Comment on above: Performed By: #### U DINA, LIPID, TSH, BNP, CMP, T7 #### [facility] [address] [place] [address] Dr. Suzie Brooks Potassium [Moles/Vol] 3.6 mmol/L Normal 3.5-5.1 [facility] Comment on above: Performed By: #### U DINA, LIPID, TSH, BNP, CMP, T7 #### [facility] [address] [place] [address] Dr. Suzie Brooks Protein [Mass/Vol] 7.4 g/dL Normal 6.4-8.2 [facility] Comment on above: Performed By: #### U DINA, LIPID, TSH, BNP, CMP, T7 #### [facility] [address] [place] [address] Dr. Suzie Brooks Sodium [Moles/Vol] 138 mmol/L Normal 136-145 [facility] Comment on above: Performed By: #### U DINA, LIPID, TSH, BNP, CMP, T7 #### [facility] [address] [address] [address] Suzie Brooks Urea nitrogen [Mass/Vol] 12.0 mg/dL Normal 7.0-18.0 [facility] Comment on above: Performed By: #### U DINA, LIPID, TSH, BNP, CMP, T7 #### [facility] [address] [address] [address] Suzie Brooks Urea nitrogen/Creatinine [Mass ratio] 12.2 mg/mg Normal [facility] Comment on above: Performed By: #### U DINA, LIPID, TSH, BNP, CMP, T7 #### [facility] [address] [place] [address] Dr. Suzie Brooks TSHon 05-15-2022 TSH 2.356 uIU/mL Normal 0.358-3.740 [facility] Comment on above: Performed By: #### U DINA, LIPID, TSH, BNP, CMP, T7 #### [facility] [address] [place] [address] Dr. Suzie Brooks URIC ACID SERUMon 05-15-2022 Urate [Mass/Vol] 5.2 mg/dL Normal 3.5-7.2 [facility] Comment on above: Performed By: #### U DINA, LIPID, TSH, BNP, CMP, T7 #### [facility] [address] [place] [address] Dr. Suzie Brooks CALCULI, URINARYon 2 2,8 Dihydroxyadenine Normal [facility] Comment on above: Performed By: #### U DINA, LIPID, TSH, BNP, CMP, T7 #### [facility] [address] [place] [address] Dr. Suzie Brooks Ammonium Acid Urate Normal [facility] Comment on above: Performed By: #### U DINA, LIPID, TSH, BNP, CMP, T7 #### [facility] [address] [address] [address] Suzie Brooks Bilirubin Ql (U) Normal [facility] Comment on above: Performed By: #### U DINA, LIPID, TSH, BNP, CMP, T7 #### [facility] [address] [address] [address] Suzie Brooks Ca Oxalate Dihydrate Normal [facility] Comment on above: Performed By: #### U DINA, LIPID, TSH, BNP, CMP, T7 #### [facility] [address] [address] [address] Suzie Brooks CaHPO4 (Brushite) Normal [facility] Comment on above: Performed By: #### U DINA, LIPID, TSH, BNP, CMP, T7 #### [facility] [address] [address] [address] Suzie Brooks Calcium Bilirubinate Normal [facility] Comment on above: Performed By: #### U DINA, LIPID, TSH, BNP, CMP, T7 #### [facility] [address] [address] [address] Suzie Brooks Calcium Carbonate Normal [facility] Comment on above: Performed By: #### U DINA, LIPID, TSH, BNP, CMP, T7 #### [facility] [address] [address] [address] Suzie Brooks Calcium Oxalate Monohydrate 70 % Normal [facility] Comment on above: Performed By: #### U DINA, LIPID, TSH, BNP, CMP, T7 #### [facility] [address] [address] [address] Suzie Brooks Calcium Palmitate Normal [facility] Comment on above: Performed By: #### U DINA, LIPID, TSH, BNP, CMP, T7 #### [facility] [address] [address] [address] Suzie Brooks Calcium Phosphate Normal [facility] Comment on above: Performed By: #### U DINA, LIPID, TSH, BNP, CMP, T7 #### [facility] [address] [address] [address] Suzie Brooks Calcium Stearate Normal [facility] Comment on above: Performed By: #### U DINA, LIPID, TSH, BNP, CMP, T7 #### [facility] [address] [address] [address] Suzie Brooks Carbonate Apatite Normal [facility] Comment on above: Performed By: #### U DINA, LIPID, TSH, BNP, CMP, T7 #### [facility] [address] [address] [address] Suzie Brooks Cellular Material Normal [facility] Comment on above: Performed By: #### U DINA, LIPID, TSH, BNP, CMP, T7 #### [facility] [address] [address] [address] Suzie Brooks Cholesterol [facility] Comment on above: Performed By: #### U DINA, LIPID, TSH, BNP, CMP, T7 #### [facility] [address] [address] [address] Suzie Brooks Color (U) Brown [facility] Comment on above: Performed By: #### U DINA, LIPID, TSH, BNP, CMP, T7 #### [facility] [address] [address] [address] Suzie Brooks Comment [facility] Comment on above: Performed By: #### U DINA, LIPID, TSH, BNP, CMP, T7 #### [facility] [address] [address] [address] Suzie Brooks Comment Comment [facility] Comment on above: Result Comment: Calc ulus received in liquid. Wet calculi must be dried before analysis, which delays reporting of results. Leaving calculi in liquid (such as water, saline, blood, urine) may lead to changes in composition. Performed By: #### U DINA, LIPID, TSH, BNP, CMP, T7 #### [facility] [address] [address] [address] Suzie Brooks Comment: Comment [facility] Comment on above: Result Comment: Phys nestor questions regarding Calculi Analysis contact [facility] at: [phone]. Performed By: #### U DINA, LIPID, TSH, BNP, CMP, T7 #### [facility] [address] [address] [address] Suzie Brooks Composition Comment [facility] Comment on above: Result Comment: Perc entage (Represents the % composition) Performed By: #### U DINA, LIPID, TSH, BNP, CMP, T7 #### [facility] [address] [address] [address] Suzie Brooks Cystine Normal [facility] Comment on above: Performed By: #### U DINA, LIPID, TSH, BNP, CMP, T7 #### [facility] [address] [address] [address] Suzie Brooks Disclaimer: Comment Normal [facility] Comment on above: Result Comment: This test was developed and its performance characteristics determined by [facility]. It has not been cleared or approved by the Food and Drug Administration. Performed By: #### U DINA, LIPID, TSH, BNP, CMP, T7 #### [facility] [address] [address] [address] Suzie Brooks Dried Blood [facility] Comment on above: Performed By: #### U DINA, LIPID, TSH, BNP, CMP, T7 #### [facility] [address] [address] [address] Suzie Brooks Drug or Metabolite Normal [facility] Comment on above: Performed By: #### U DINA, LIPID, TSH, BNP, CMP, T7 #### [facility] [address] [address] [address] Suzie Brooks Hydroxyapatite Normal [facility] Comment on above: Performed By: #### U DINA, LIPID, TSH, BNP, CMP, T7 #### [facility] [address] [address] [address] Suzie Brooks Mg NH4 PO4 (Struvite) [facility] Comment on above: Performed By: #### U DINA, LIPID, TSH, BNP, CMP, T7 #### [facility] [address] [address] [address] Suzie Brooks MgHPO4 (Newberyite) Normal [facility] Comment on above: Performed By: #### U DINA, LIPID, TSH, BNP, CMP, T7 #### [facility] [address] [address] [address] Suzie Brooks Other component(s) Normal [facility] Comment on above: Performed By: #### U DINA, LIPID, TSH, BNP, CMP, T7 #### [facility] [address] [address] [address] Suzie Brooks PDF . Normal [facility] Comment on above: Performed By: #### U DINA, LIPID, TSH, BNP, CMP, T7 #### [facility] [address] [address] [address] Suzie Brooks Photo Comment [facility] Comment on above: Result Comment: Luis prasad will follow under a separate cover Performed By: #### U DINA, LIPID, TSH, BNP, CMP, T7 #### [facility] [address] [address] [address] Suzie Brooks Please note: Comment [facility] Comment on above: Result Comment: Calc shamika report will follow via computer, mail or track inspector delivery. Performed By: #### U DINA, LIPID, TSH, BNP, CMP, T7 #### [facility] [address] [address] [address] Suzie Brooks Size 6x4 Normal [facility] Comment on above: Result Comment: Mult iple pieces received. Dimensions of the largest piece reported. Performed By: #### U DINA, LIPID, TSH, BNP, CMP, T7 #### [facility] [address] [address] [address] Suzie Brooks Sodium Acid Urate Normal [facility] Comment on above: Performed By: #### U DINA, LIPID, TSH, BNP, CMP, T7 #### [facility] [address] [address] [address] Suzie Brooks Source Comment [facility] Comment on above: Result Comment: Not provided Performed By: #### U DINA, LIPID, TSH, BNP, CMP, T7 #### [facility] [address] [address] [address] Suzie Brooks Triamterene [facility] Comment on above: Performed By: #### U DINA, LIPID, TSH, BNP, CMP, T7 #### [facility] [address] [address] [address] Suzie Brooks Uric Acid 30 % [facility] Comment on above: Performed By: #### U DINA, LIPID, TSH, BNP, CMP, T7 #### [facility] [address] [address] [address] Suzie Brooks Uric Acid Dihydrate Normal [facility] Comment on above: Performed By: #### U DINA, LIPID, TSH, BNP, CMP, T7 #### [facility] [address] [address] [address] Suzie Brooks Weight 99 mg Normal [facility] Comment on above: Performed By: #### U DINA, LIPID, TSH, BNP, CMP, T7 #### [facility] [address] [place] [address] Dr. Suzie Brooks Xanthine [facility] Comment on above: Performed By: #### U DINA, LIPID, TSH, BNP, CMP, T7 #### [facility] [address] [place] [address] Dr. Suzie Brooks CBC AUTO DIFFon 02-18-2022 BASO # 0.0 103/ul Normal 0.0-0.1 [facility] Comment on above: Performed By: #### U DINA, LIPID, TSH, BNP, CMP, T7 #### [facility] [address] [address] [address] Suzie Brooks Basophils/100 WBC (Bld) 0.3 % Normal 0.2-2.0 [facility] Comment on above: Performed By: #### U DINA, LIPID, TSH, BNP, CMP, T7 #### [facility] [address] [address] [address] Suzie Brooks EO # 0.3 103/ul Normal 0.0-0.7 [facility] Comment on above: Performed By: #### U DINA, LIPID, TSH, BNP, CMP, T7 #### [facility] [address] [place] [address] Dr. Suzie Brooks Eosinophils/100 WBC (Bld) 2.3 % Normal 0.9-7.0 [facility] Comment on above: Performed By: #### U DINA, LIPID, TSH, BNP, CMP, T7 #### [facility] [address] [place] [address] Dr. Suzie Brooks Erythrocyte distribution width (RBC) [Ratio] 14.2 % Normal 11.0-15.0 [facility] Comment on above: Performed By: #### U DINA, LIPID, TSH, BNP, CMP, T7 #### [facility] [address] [place] [address] Dr. Suzie Brooks Hematocrit (Bld) [Volume fraction] 41.3 % Critically low 42.0-54.0 [facility] Comment on above: Performed By: #### U DINA, LIPID, TSH, BNP, CMP, T7 #### [facility] [address] [place] [address] Dr. Suzie Brooks Hemoglobin (Bld) [Mass/Vol] 13.4 g/dL Critically low 14.0-18.0 [facility] Comment on above: Performed By: #### U DINA, LIPID, TSH, BNP, CMP, T7 #### [facility] [address] [place] [address] Dr. Suzie Brooks IG # 0.03 10e3/ul Normal 0.00-0.03 [facility] Comment on above: Performed By: #### U DINA, LIPID, TSH, BNP, CMP, T7 #### [facility] [address] [place] [address] Dr. Suzie Brooks IG % 0.3 % Normal 0.0-0.5 [facility] Comment on above: Performed By: #### U DINA, LIPID, TSH, BNP, CMP, T7 #### [facility] [address] [place] [address] Dr. Suzie Brooks LYMPH # 2.0 103/ul Normal 1.2-3.8 [facility] Comment on above: Performed By: #### U DINA, LIPID, TSH, BNP, CMP, T7 #### [facility] [address] [place] [address] Dr. Suzie Brooks Lymphocytes/100 WBC (Bld) 18.0 % Critically low 20.5-60.0 [facility] Comment on above: Performed By: #### U DINA, LIPID, TSH, BNP, CMP, T7 #### [facility] [address] [place] [address] Dr. Suzie Brooks MANUAL DIFF REQ NO Normal [facility] Comment on above: Performed By: #### U DINA, LIPID, TSH, BNP, CMP, T7 #### [facility] [address] [place] [address] Dr. Suzie Brooks MCH (RBC) [Entitic mass] 28.8 pg Normal 25.9-34.0 [facility] Comment on above: Performed By: #### U DINA, LIPID, TSH, BNP, CMP, T7 #### [facility] [address] [place] [address] Dr. Suzie Brooks MCHC (RBC) [Mass/Vol] 32.4 g/dL Normal 29.9-35.2 [facility] Comment on above: Performed By: #### U DINA, LIPID, TSH, BNP, CMP, T7 #### [facility] [address] [place] [address] Dr. Suzie Brooks MCV (RBC) [Entitic vol] 88.6 fL Normal 80.0-94.0 [facility] Comment on above: Performed By: #### U DINA, LIPID, TSH, BNP, CMP, T7 #### [facility] [address] [place] [address] Dr. Suzie Brooks MONO # 1.0 103/ul Critically high 0.3-0.8 [facility] Comment on above: Performed By: #### U DINA, LIPID, TSH, BNP, CMP, T7 #### [facility] [address] [place] [address] Dr. Suzie Brooks Monocytes/100 WBC (Bld) 9.2 % Normal 1.7-12.0 [facility] Comment on above: Performed By: #### U DINA, LIPID, TSH, BNP, CMP, T7 #### [facility] [address] [place] [address] Dr. Suzie Brooks NEUT # 7.9 103/ul Critically high 1.4-6.5 [facility] Comment on above: Performed By: #### U DINA, LIPID, TSH, BNP, CMP, T7 #### [facility] [address] [address] [address] Suzie Brooks Neutrophils/100 WBC (Bld) 69.9 % Normal 43.0-75.0 [facility] Comment on above: Performed By: #### U DINA, LIPID, TSH, BNP, CMP, T7 #### [facility] [address] [address] [address] Suzie Brooks Platelet mean volume (Bld) [Entitic vol] 9.6 fL Normal 9.5-13.5 [facility] Comment on above: Performed By: #### U DINA, LIPID, TSH, BNP, CMP, T7 #### [facility] [address] [address] [address] Suzie Brooks PLT 218 103/ul Normal 150-450 [facility] Comment on above: Performed By: #### U DINA, LIPID, TSH, BNP, CMP, T7 #### [facility] [address] [place] [address] Dr. Suzie Brooks RBC 4.66 106/ul Critically low 4.70-6.10 [facility] Comment on above: Performed By: #### U DINA, LIPID, TSH, BNP, CMP, T7 #### [facility] [address] [address] [address] Suzie Brooks WBC 11.3 103/ul Critically high 4.0-11.0 [facility] Comment on above: Performed By: #### U DINA, LIPID, TSH, BNP, CMP, T7 #### [facility] [address] [place] [address] Dr. Suzie Brooks CULTURE URINEon 02-18-2022 CULTURE URINE Culture Observations : NO GROWTH. Normal [facility] Comment on above: Performed By: #### M [id number] #### [facility] [address] [place] [address] Dr. Suzie Brooks [facility] SARS-CoV-2 (COVID-19) RNA SUKHJINDER+probe Ql (Unsp spec) Not detected Normal NOT DETECTED [facility] Comment on above: Result Comment: When [...] for this test is supported by the [employer]'s declaration that [...] longer be used). Performed By: #### C VDTB #### [facility] [address] [place] [address] Dr. Suzie Brooks PROF 14(COMP METB)on 022 Albumin [Mass/Vol] 3.0 g/dL Critically low 3.4-5.0 [facility] Comment on above: Performed By: #### O [id number] #### [facility] [address] [place] [address] Dr. Suzie Brooks Albumin/Globulin [Mass ratio] 0.9 {ratio} Normal [facility] Comment on above: Performed By: #### O [id number] #### [facility] [address] [place] [address] Dr. Suzie Brooks ALP [Catalytic activity/Vol] 49 U/L Normal 46-116 [facility] Comment on above: Performed By: #### O [id number] #### [facility] [address] [place] [address] Dr. Suzie Brooks ALT [Catalytic activity/Vol] 35 U/L Normal 16-63 [facility] Comment on above: Performed By: #### O [id number] #### [facility] [address] [place] [address] Dr. Suzie Brooks Anion gap [Moles/Vol] 11.8 mmol/L Normal [facility] Comment on above: Performed By: #### O [id number] #### [facility] [address] [address] [address] Suzie Brooks AST [Catalytic activity/Vol] 27 U/L Normal 15-37 [facility] Comment on above: Performed By: #### O [id number] #### [facility] Laboratory [address] [address] [address] Suzie Brooks Bilirubin [Mass/Vol] 0.4 mg/dL Normal 0.2-1.0 [facility] Comment on above: Performed By: #### O [id number] #### [facility] Laboratory [address] [address] [address] Suzie Brooks Calcium [Mass/Vol] 7.6 mg/dL Critically low 8.5-10.1 Th [facility] Comment on above: Performed By: #### O X24HR #### [facility] Laboratory [address] [place] [address] Dr. Suzie Brooks Chloride [Moles/Vol] 106 mmol/L Normal 98-107 [facility] Comment on above: Performed By: #### O X24HR #### [facility] [address] [place] [address] Dr. Suzie Brooks CO2 [Moles/Vol] 26.2 mmol/L Normal 21.0-32.0 [facility] Comment on above: Performed By: #### O X24HR #### [facility] [address] [place] [address] Dr. Suzie Brooks Creatinine [Mass/Vol] 1.08 mg/dL Normal 0.70-1.30 [facility] Comment on above: Performed By: #### O X24HR #### [facility] [address] [place] [address] Dr. Suzie Brooks EGFR-AF [facility] LUCIAN >60 Normal >=60 [facility] Comment on above: Performed By: #### O X24HR #### [facility] [address] [address] [address] Suzie Brooks EGFR-NON AF [facility] LUCIAN >60 Normal >=60 [facility] Comment on above: Performed By: #### O X24HR #### [facility] [address] [address] [address] Suzie Brooks Globulin (S) [Mass/Vol] 3.2 g/dL Normal [facility] Comment on above: Performed By: #### O X24HR #### [facility] [address] [address] [address] Suzie Brooks Glucose [Mass/Vol] 107 mg/dL Critically high 74-106 [facility] Comment on above: Performed By: #### O X24HR #### [facility] [address] [place] [address] Dr. Suzie Brooks Potassium [Moles/Vol] 4.0 mmol/L Normal 3.5-5.1 [facility] Comment on above: Performed By: #### O X24HR #### [facility] [address] [place] [address] Dr. Suzie Brooks Protein [Mass/Vol] 6.2 g/dL Critically low 6.4-8.2 Th [facility] Comment on above: Performed By: #### O X24HR #### [facility] [address] [place] [address] Dr. Suzie Brooks Sodium [Moles/Vol] 140 mmol/L Normal 136-145 [facility] Comment on above: Performed By: #### O X24HR #### [facility] [address] [place] [address] Dr. Suzie Brooks Urea nitrogen [Mass/Vol] 14.0 mg/dL Normal 7.0-18.0 [facility] Comment on above: Performed By: #### O X24HR #### [facility] [address] [place] [address] Dr. Suzie Brooks Urea nitrogen/Creatinine [Mass ratio] 13.0 mg/mg Normal [facility] Comment on above: Performed By: #### O X24HR #### [facility] [address] [place] [address] Dr. Suzie Brooks CBC AUTO DIFFon 02-17-2022 BASO # 0.1 103/ul Normal 0.0-0.1 [facility] Comment on above: Performed By: #### M AG24 #### [facility] [address] [address] [address] Suzie Brooks Basophils/100 WBC (Bld) 0.4 % Normal 0.2-2.0 [facility] Comment on above: Performed By: #### M AG24 #### [facility] [address] [place] [address] Dr. Suzie Brooks EO # 0.3 103/ul Normal 0.0-0.7 [facility] Comment on above: Performed By: #### M AG24 #### [facility] [address] [place] [address] Dr. Suzie Brooks Eosinophils/100 WBC (Bld) 2.3 % Normal 0.9-7.0 [facility] Comment on above: Performed By: #### M AG24 #### [facility] [address] [place] [address] Dr. Suzie Brooks Erythrocyte distribution width (RBC) [Ratio] 13.8 % Normal 11.0-15.0 [facility] Comment on above: Performed By: #### M AG24 #### [facility] [address] [place] [address] Dr. Suzie Brooks Hematocrit (Bld) [Volume fraction] 45.2 % Normal 42.0-54.0 [facility] Comment on above: Performed By: #### M AG24 #### [facility] [address] [place] [address] Dr. Suzie Brooks Hemoglobin (Bld) [Mass/Vol] 14.9 g/dL Normal 14.0-18.0 [facility] Comment on above: Performed By: #### M AG24 #### [facility] [address] [place] [address] Dr. Suzie Brooks IG # 0.05 10e3/ul Critically high 0.00-0.03 [facility] Comment on above: Performed By: #### M AG24 #### [facility] [address] [place] [address] Dr. Suzie Brooks IG % 0.4 % Normal 0.0-0.5 [facility] Comment on above: Performed By: #### M AG24 #### [facility] [address] [address] [address] Suzie Brooks LYMPH # 2.5 103/ul Normal 1.2-3.8 [facility] Comment on above: Performed By: #### M AG24 #### [facility] [address] [address] [address] Suzie Brooks Lymphocytes/100 WBC (Bld) 17.3 % Critically low 20.5-60.0 [facility] Comment on above: Performed By: #### M AG24 #### [facility] [address] [address] [address] Suzie Brooks MANUAL DIFF REQ NO Normal [facility] Comment on above: Performed By: #### M AG24 #### [facility] [address] [place] [address] Dr. Suzie Brooks MCH (RBC) [Entitic mass] 28.7 pg Normal 25.9-34.0 [facility] Comment on above: Performed By: #### M AG24 #### [facility] [address] [place] [address] Dr. Suzie Brooks MCHC (RBC) [Mass/Vol] 33.0 g/dL Normal 29.9-35.2 [facility] Comment on above: Performed By: #### M AG24 #### [facility] [address] [address] [address] Suzie Brooks MCV (RBC) [Entitic vol] 87.1 fL Normal 80.0-94.0 [facility] Comment on above: Performed By: #### M AG24 #### [facility] [address] [address] [address] Suzie Brooks MONO # 1.0 103/ul Critically high 0.3-0.8 [facility] Comment on above: Performed By: #### M AG24 #### [facility] [address] [address] [address] Suzie Brooks Monocytes/100 WBC (Bld) 6.8 % Normal 1.7-12.0 [facility] Comment on above: Performed By: #### M AG24 #### [facility] [address] [place] [address] Dr. Suzie Brooks NEUT # 10.3 103/ul Critically high 1.4-6.5 [facility] Comment on above: Performed By: #### M AG24 #### [facility] [address] [place] [address] Dr. Suzie Brooks Neutrophils/100 WBC (Bld) 72.8 % Normal 43.0-75.0 [facility] Comment on above: Performed By: #### M AG24 #### [facility] [address] [place] [address] Dr. Suzie Brooks Platelet mean volume (Bld) [Entitic vol] 9.7 fL Normal 9.5-13.5 [facility] Comment on above: Performed By: #### M AG24 #### [facility] [address] [place] [address] Dr. Suzie Brooks PLT 253 103/ul Normal 150-450 [facility] Comment on above: Performed By: #### M AG24 #### [facility] [address] [place] [address] Dr. Suzie Brooks RBC 5.19 106/ul Normal 4.70-6.10 [facility] Comment on above: Performed By: #### M AG24 #### [facility] [address] [place] [address] Dr. Suzie Brooks WBC 14.2 103/ul Critically high 4.0-11.0 [facility] Comment on above: Performed By: #### M AG24 #### [facility] [address] [place] [address] Dr. Suzie Brooks CULTURE BLOODon 02-17-2022 Microscopic examination of blood, culture Culture Observations: NO GROWTH AT 5 DAYS. Normal [facility] Comment on above: Performed By: #### M AG24 #### [facility] [address] [place] [address] Dr. Suzie Brooks Microscopic examination of blood, culture Culture Observations: NO GROWTH AT 5 DAYS. Normal [facility] Comment on above: Performed By: #### M AG24 #### [facility] [address] [place] [address] Dr. Suzie Brooks ER URINE PROFILEon 2 Bilirubin Ql (U) Negative Normal NEGATIVE [facility] Comment on above: Performed By: #### E RUR #### [facility] [address] [place] [address] Dr. Suzie Brooks Clarity (U) CLEAR Normal CLEAR [facility] Comment on above: Performed By: #### E RUR #### [facility] [address] [place] [address] Dr. Suzie Brooks Color (U) DK. YELLOW Normal YELLOW [facility] Comment on above: Performed By: #### E RUR #### [facility] [address] [place] [address] Dr. Suzie ESTEBAN A micrscopic examina tion will be performed if indicated. Normal [facility] Comment on above: Performed By: #### E RUR #### [facility] [address] [place] [address] Dr. Suzie Brooks Glucose Ql (U) Negative Normal NEGATIVE [facility] Comment on above: Performed By: #### E RUR #### [facility] [address] [place] [address] Dr. Suzie Brooks Hemoglobin Ql (U) Negative Normal NEGATIVE [facility] Comment on above: Performed By: #### E RUR #### [facility] [address] [place] [address] Dr. Suzie Brooks Ketones Ql (U) Negative Normal NEGATIVE [facility] Comment on above: Performed By: #### E RUR #### [facility] [address] [place] [address] Dr. Suzie Brooks LEUKOCYTES Negative Normal NEGATIVE [facility] Comment on above: Performed By: #### E RUR #### [facility] [address] [place] [address] Dr. Suzie Brooks Nitrite Ql (U) Negative Normal NEGATIVE [facility] Comment on above: Performed By: #### E RUR #### [facility] [address] [address] [address] Suzie Brooks pH (U) 5.0 [pH] Normal 5-9 [facility] Comment on above: Performed By: #### E RUR #### [facility] [address] [place] [address] Dr. Suzie Brooks SPEC GRAVITY >=1.030 Abnormal 1.005-<=1.02 5 [facility] Comment on above: Performed By: #### E RUR #### [facility] [address] [place] [address] Dr. Suzie Brooks UA PROTEIN Negative Normal NEGATIVE/ TRACE [facility] Comment on above: Performed By: #### E RUR #### [facility] [address] [place] [address] Dr. Suzie Brooks UR MICRO IND NOT INDICATED Normal [facility] Comment on above: Performed By: #### E RUR #### [facility] [address] [place] [address] Dr. Suzie Brooks Urobilinogen Qn (U) 0.2 {Behzad'U}/dL Normal 0.2 - 1. 0 [facility] Comment on above: Performed By: #### E RUR #### [facility] [address] [place] [address] Dr. Suzie Brooks LACTATE/LACTIC ACIDon 2021 Lactate [Moles/Vol] 1.4 mmol/L Normal 0.4-1.9 [facility] Comment on above: Performed By: #### U DINA, LIPID, TSH, BNP, CMP, T7 #### [facility] [address] [place] [address] Dr. Suzie Brooks PROF CHEM 8 (BAS METB)on Anion gap [Moles/Vol] 12.2 mmol/L Normal [facility] Comment on above: Performed By: #### U DINA, LIPID, TSH, BNP, CMP, T7 #### [facility] [address] [place] [address] Dr. Suzie Brooks Calcium [Mass/Vol] 8.1 mg/dL Critically low 8.5-10.1 [facility] Comment on above: Performed By: #### U DINA, LIPID, TSH, BNP, CMP, T7 #### [facility] [address] [address] [address] Suzie Brooks Chloride [Moles/Vol] 103 mmol/L Normal 98-107 [facility] Comment on above: Performed By: #### U DINA, LIPID, TSH, BNP, CMP, T7 #### [facility] [address] [address] [address] Suzie Brooks CO2 [Moles/Vol] 26.1 mmol/L Normal 21.0-32.0 [facility] Comment on above: Performed By: #### U DINA, LIPID, TSH, BNP, CMP, T7 #### [facility] [address] [address] [address] Suzie Brooks Creatinine [Mass/Vol] 1.06 mg/dL Normal 0.70-1.30 [facility] Comment on above: Performed By: #### U DINA, LIPID, TSH, BNP, CMP, T7 #### [facility] [address] [address] [address] Suzie Brooks EGFR-AF [facility] LUCIAN >60 Normal >=60 [facility] Comment on above: Performed By: #### U DINA, LIPID, TSH, BNP, CMP, T7 #### [facility] [address] [place] [address] Dr. Suzie Brooks EGFR-NON AF [facility]CIAN >60 Normal >=60 [facility] Comment on above: Performed By: #### U DINA, LIPID, TSH, BNP, CMP, T7 #### [facility] [address] [address] [address] Suzie Brooks Glucose [Mass/Vol] 138 mg/dL Critically high 74-106 [facility] Comment on above: Performed By: #### U DINA, LIPID, TSH, BNP, CMP, T7 #### [facility] [address] [address] [address] Suzie Brooks Potassium [Moles/Vol] 4.3 mmol/L Normal 3.5-5.1 [facility] Comment on above: Performed By: #### U DINA, LIPID, TSH, BNP, CMP, T7 #### [facility] [address] [address] [address] Suzie Brooks Sodium [Moles/Vol] 137 mmol/L Normal 136-145 [facility] Comment on above: Performed By: #### U DINA, LIPID, TSH, BNP, CMP, T7 #### [facility] [address] [address] [address] Suzie Brooks Urea nitrogen [Mass/Vol] 14.0 mg/dL Normal 7.0-18.0 [facility] Comment on above: Performed By: #### U DINA, LIPID, TSH, BNP, CMP, T7 #### [facility] [address] [address] [address] Suzie Brooks Urea nitrogen/Creatinine [Mass ratio] 13.2 mg/mg Normal [facility] Comment on above: Performed By: #### U DINA, LIPID, TSH, BNP, CMP, T7 #### [facility] [address] [place] [address] Dr. Suzie Brooks TROPONIN, HIGH SENSITIVITYon 02-17-2022 HSTROP 8.4 pg/mL Normal 4.0-76.1 [facility] Comment on above: Result Comment: CUT- OFF POINTS HAVE BEEN ESTABLISHED BASED ON THE FOURTH UNIVERSAL DEFINITIONS OF MYOCARDIAL INFARCTION. THE UPPER REFERENCE LIMIT (URL) OF TROPONIN, DEFINED THE 99TH PERCENTILE OF cTnI DISTRIBUTION IN A REFERENCE POPULATION, HAS BEEN CONFIRMED THE DECISION THRESHOLD FOR [place] DIAGNOSIS. Performed By: #### U DINA, LIPID, TSH, BNP, CMP, T7 #### [facility] [address] [place] [address] Dr. Suzie Brooks CBC AUTO DIFFon 02-16-2022 BASO # 0.1 103/ul Normal 0.0-0.1 [facility] Comment on above: Performed By: #### U DINA, LIPID, TSH, BNP, CMP, T7 #### [facility] [address] [place] [address] Dr. Suzie Brooks Basophils/100 WBC (Bld) 0.4 % Normal 0.2-2.0 [facility] Comment on above: Performed By: #### U DINA, LIPID, TSH, BNP, CMP, T7 #### [facility] [address] [address] [address] Suzie Brooks EO # 0.3 103/ul Normal 0.0-0.7 [facility] Comment on above: Performed By: #### U DINA, LIPID, TSH, BNP, CMP, T7 #### [facility] [address] [place] [address] Dr. Suzie Brooks Eosinophils/100 WBC (Bld) 2.5 % Normal 0.9-7.0 [facility] Comment on above: Performed By: #### U DINA, LIPID, TSH, BNP, CMP, T7 #### [facility] [address] [place] [address] Dr. Suzie Brooks Erythrocyte distribution width (RBC) [Ratio] 13.9 % Normal 11.0-15.0 [facility] Comment on above: Performed By: #### U DINA, LIPID, TSH, BNP, CMP, T7 #### [facility] [address] [place] [address] Dr. Suzie Brooks Hematocrit (Bld) [Volume fraction] 46.6 % Normal 42.0-54.0 [facility] Comment on above: Performed By: #### U DINA, LIPID, TSH, BNP, CMP, T7 #### [facility] [address] [place] [address] Dr. Suzie Brooks Hemoglobin (Bld) [Mass/Vol] 15.7 g/dL Normal 14.0-18.0 [facility] Comment on above: Performed By: #### U DINA, LIPID, TSH, BNP, CMP, T7 #### [facility] [address] [place] [address] Dr. Suzie Brooks IG # 0.05 10e3/ul Critically high 0.00-0.03 [facility] Comment on above: Performed By: #### U DINA, LIPID, TSH, BNP, CMP, T7 #### [facility] [address] [place] [address] Dr. Suzie Brooks IG % 0.4 % Normal 0.0-0.5 [facility] Comment on above: Performed By: #### U DINA, LIPID, TSH, BNP, CMP, T7 #### [facility] [address] [place] [address] Dr. Suzie Brooks LYMPH # 3.7 103/ul Normal 1.2-3.8 [facility] Comment on above: Performed By: #### U DINA, LIPID, TSH, BNP, CMP, T7 #### [facility] [address] [place] [address] Dr. Suzie Brooks Lymphocytes/100 WBC (Bld) 26.6 % Normal 20.5-60.0 [facility] Comment on above: Performed By: #### U DINA, LIPID, TSH, BNP, CMP, T7 #### [facility] [address] [place] [address] Dr. Suzie Brooks MANUAL DIFF REQ NO Normal [facility] Comment on above: Performed By: #### U DINA, LIPID, TSH, BNP, CMP, T7 #### [facility] [address] [place] [address] Dr. Suzie Brooks MCH (RBC) [Entitic mass] 29.2 pg Normal 25.9-34.0 [facility] Comment on above: Performed By: #### U DINA, LIPID, TSH, BNP, CMP, T7 #### [facility] [address] [place] [address] Dr. Suzie Brooks MCHC (RBC) [Mass/Vol] 33.7 g/dL Normal 29.9-35.2 [facility] Comment on above: Performed By: #### U DINA, LIPID, TSH, BNP, CMP, T7 #### [facility] [address] [place] [address] Dr. Suzie Brooks MCV (RBC) [Entitic vol] 86.6 fL Normal 80.0-94.0 [facility] Comment on above: Performed By: #### U DINA, LIPID, TSH, BNP, CMP, T7 #### [facility] [address] [place] [address] Dr. Suzie Brooks MONO # 1.0 103/ul Critically high 0.3-0.8 [facility] Comment on above: Performed By: #### U DINA, LIPID, TSH, BNP, CMP, T7 #### [facility] [address] [address] [address] Suzie Brooks Monocytes/100 WBC (Bld) 7.2 % Normal 1.7-12.0 [facility] Comment on above: Performed By: #### U DINA, LIPID, TSH, BNP, CMP, T7 #### [facility] [address] [address] [address] Suzie Brooks NEUT # 8.7 103/ul Critically high 1.4-6.5 [facility] Comment on above: Performed By: #### U DINA, LIPID, TSH, BNP, CMP, T7 #### [facility] [address] [address] [address] Suzie Brooks Neutrophils/100 WBC (Bld) 62.9 % Normal 43.0-75.0 [facility] Comment on above: Performed By: #### U DINA, LIPID, TSH, BNP, CMP, T7 #### [facility] [address] [address] [address] Suzie Brooks Platelet mean volume (Bld) [Entitic vol] 9.4 fL Critically low 9.5-13.5 [facility] Comment on above: Performed By: #### U DINA, LIPID, TSH, BNP, CMP, T7 #### [facility] [address] [address] [address] Suzie Brooks PLT 277 103/ul Normal 150-450 [facility] Comment on above: Performed By: #### U DINA, LIPID, TSH, BNP, CMP, T7 #### [facility] [address] [place] [address] Dr. Suzie Brooks RBC 5.38 106/ul Normal 4.70-6.10 [facility] Comment on above: Performed By: #### U DINA, LIPID, TSH, BNP, CMP, T7 #### [facility] [address] [address] [address] Suzie Brooks WBC 13.8 103/ul Critically high 4.0-11.0 [facility] Comment on above: Performed By: #### U DINA, LIPID, TSH, BNP, CMP, T7 #### [facility] [address] [address] [address] ABD/PELVIS WO CONon [...] Reilly CAST Date: 2022-02-16 20:51 Normal [facility] ER URINE PROFILEon 2 Bilirubin Ql (U) Negative Normal NEGATIVE [facility] Comment on above: Performed By: #### U DINA, LIPID, TSH, BNP, CMP, T7 #### [facility] [address] [address] [address] Suzie Brooks Clarity (U) CLEAR Normal CLEAR [facility] Comment on above: Performed By: #### U DINA, LIPID, TSH, BNP, CMP, T7 #### [facility] [address] [address] [address] Suzie Brooks Color (U) YELLOW Normal YELLOW [facility] Comment on above: Performed By: #### U DINA, LIPID, TSH, BNP, CMP, T7 #### [facility] [address] [address] [address] Suzie Brooks ERUDIOGOD A micrscopic examina tion will be performed if indicated. Normal [facility] Comment on above: Performed By: #### U DINA, LIPID, TSH, BNP, CMP, T7 #### [facility] [address] [address] [address] Suzie Brooks Glucose Ql (U) Negative Normal NEGATIVE [facility] Comment on above: Performed By: #### U DINA, LIPID, TSH, BNP, CMP, T7 #### [facility] [address] [address] [address] Suzie Brooks Hemoglobin Ql (U) MODERATE Abnormal NEGATIVE [facility] Comment on above: Performed By: #### U DINA, LIPID, TSH, BNP, CMP, T7 #### [facility] [address] [address] [address] Suzie Brooks Ketones Ql (U) Negative Normal NEGATIVE [facility] Comment on above: Performed By: #### U DINA, LIPID, TSH, BNP, CMP, T7 #### [facility] [address] [place] [address] Dr. Suzie Brooks LEUKOCYTES Negative Normal NEGATIVE [facility] Comment on above: Performed By: #### U DINA, LIPID, TSH, BNP, CMP, T7 #### [facility] [address] [place] [address] Dr. Suzie Brooks Nitrite Ql (U) Negative Normal NEGATIVE [facility] Comment on above: Performed By: #### U DINA, LIPID, TSH, BNP, CMP, T7 #### [facility] [address] [place] [address] Dr. Suzie Brooks pH (U) 5.5 [pH] Normal 5-9 [facility] Comment on above: Performed By: #### U DINA, LIPID, TSH, BNP, CMP, T7 #### [facility] [address] [place] [address] Dr. Suzie Brooks SPEC GRAVITY >=1.030 Abnormal 1.005-<=1.02 5 [facility] Comment on above: Performed By: #### U DINA, LIPID, TSH, BNP, CMP, T7 #### [facility] [address] [place] [address] Dr. Suzie Brooks UA PROTEIN Negative Normal NEGATIVE/ TRACE [facility] Comment on above: Performed By: #### U DINA, LIPID, TSH, BNP, CMP, T7 #### [facility] [address] [place] [address] Dr. Suzie Brooks UR MICRO IND INDICATED Normal [facility] Comment on above: Performed By: #### U DINA, LIPID, TSH, BNP, CMP, T7 #### [facility] [address] [place] [address] Dr. Suzie Brooks Urobilinogen Qn (U) 0.2 {Behzad'U}/dL Normal 0.2 - 1. 0 [facility] Comment on above: Performed By: #### U DINA, LIPID, TSH, BNP, CMP, T7 #### [facility] [address] [place] [address] Dr. Suzie Brooks PROF CHEM 8 (BAS METB)on Anion gap [Moles/Vol] 12.2 mmol/L Normal [facility] Comment on above: Performed By: #### U DINA, LIPID, TSH, BNP, CMP, T7 #### [facility] [address] [address] [address] Suzie Brooks Calcium [Mass/Vol] 8.5 mg/dL Normal 8.5-10.1 [facility] Comment on above: Performed By: #### U DINA, LIPID, TSH, BNP, CMP, T7 #### [facility] [address] [address] [address] Suzie Brooks Chloride [Moles/Vol] 104 mmol/L Normal 98-107 [facility] Comment on above: Performed By: #### U DINA, LIPID, TSH, BNP, CMP, T7 #### [facility] [address] [place] [address] Dr. Suzie Brooks CO2 [Moles/Vol] 24.1 mmol/L Normal 21.0-32.0 [facility] Comment on above: Performed By: #### U DINA, LIPID, TSH, BNP, CMP, T7 #### [facility] [address] [place] [address] Dr. Suzie Brooks Creatinine [Mass/Vol] 1.14 mg/dL Normal 0.70-1.30 [facility] Comment on above: Performed By: #### U DINA, LIPID, TSH, BNP, CMP, T7 #### [facility] [address] [place] [address] Dr. Suzie Brooks EGFR-AF ST LUCIAN >60 Normal >=60 [facility] Comment on above: Performed By: #### U DINA, LIPID, TSH, BNP, CMP, T7 #### [facility] [address] [place] [address] Dr. Suzie Brooks EGFR-NON AF [facility] LUCIAN >60 Normal >=60 [facility] Comment on above: Performed By: #### U DINA, LIPID, TSH, BNP, CMP, T7 #### [facility] [address] [place] [address] Dr. Suzie Brooks Glucose [Mass/Vol] 114 mg/dL Critically high 74-106 [facility] Comment on above: Performed By: #### U DINA, LIPID, TSH, BNP, CMP, T7 #### [facility] [address] [address] [address] Suzie Brooks Potassium [Moles/Vol] 4.3 mmol/L Normal 3.5-5.1 [facility] Comment on above: Performed By: #### U DINA, LIPID, TSH, BNP, CMP, T7 #### [facility] [address] [address] [address] Suzie Brooks Sodium [Moles/Vol] 136 mmol/L Normal 136-145 [facility] Comment on above: Performed By: #### U DINA, LIPID, TSH, BNP, CMP, T7 #### [facility] [address] [place] [address] Dr. Suzie Brooks Urea nitrogen [Mass/Vol] 14.0 mg/dL Normal 7.0-18.0 [facility] Comment on above: Performed By: #### U DINA, LIPID, TSH, BNP, CMP, T7 #### [facility] [address] [place] [address] Dr. Suzie Brooks Urea nitrogen/Creatinine [Mass ratio] 12.3 mg/mg Normal [facility] Comment on above: Performed By: #### U DINA, LIPID, TSH, BNP, CMP, T7 #### [facility] [address] [place] [address] Dr. Suzie Brooks URINE MICROSCOPIC ONLYon BACTERIA NONE SEEN Normal NONE SEEN [facility] Comment on above: Performed By: #### U DINA, LIPID, TSH, BNP, CMP, T7 #### [facility] [address] [place] [address] Dr. Suzie Brooks Bacteria identified Cx Nom (U) NOT INDICATED Normal [facility] Comment on above: Performed By: #### U DINA, LIPID, TSH, BNP, CMP, T7 #### [facility] [address] [place] [address] Dr. Suzie Brooks CAST NONE SEEN Normal NONE SEEN [facility] Comment on above: Performed By: #### U DINA, LIPID, TSH, BNP, CMP, T7 #### [facility] [address] [address] [address] Suzie Brooks Crystals LM Nom (Urine sed) NONE SEEN Normal NONE SEEN [facility] Comment on above: Performed By: #### U DINA, LIPID, TSH, BNP, CMP, T7 #### [facility] [address] [address] [address] Suzie Brooks Epithelial cells LM Ql (Urine sed) RARE Normal NONE SEEN /RARE [facility] Comment on above: Performed By: #### U DINA, LIPID, TSH, BNP, CMP, T7 #### [facility] [address] [address] [address] Suzie Brooks MUCOUS NONE SEEN Normal NONE SEEN [facility] Comment on above: Performed By: #### U DINA, LIPID, TSH, BNP, CMP, T7 #### [facility] [address] [address] [address] Suzie Brooks RBC 5-10 Abnormal 0-2 [facility] Comment on above: Performed By: #### U DINA, LIPID, TSH, BNP, CMP, T7 #### [facility] [address] [address] [address] Suzie Brooks WBC NONE SEEN Normal NONE SEEN [facility] Comment on above: Performed By: #### U DINA, LIPID, TSH, BNP, CMP, T7 #### [facility] [address] [address] [address] Suzie Brooks CITRATE URINE 24HRon 02-05-2 022 Citric Acid, U, 24hr 1312 mg/24 hr Critically high 320-124 0 [facility] Comment on above: Result Comment: This test was developed and its performance characteristics determined by [employer]. It has not been cleared or approved by the Food and Drug Administration. Performed By: #### U DINA, LIPID, TSH, BNP, CMP, T7 #### [facility] [address] [address] [address] Suzie Brooks Citric Acid, Urine 610 mg/L Normal Undefined [facility] Comment on above: Performed By: #### U DINA, LIPID, TSH, BNP, CMP, T7 #### [facility] [address] [address] [address] Suzie Brooks OXALATE 24HR URINEon 02-05- 022 Oxalates, Urine 11 mg/L Normal Undefined [facility] Comment on above: Performed By: #### O [id number] #### [facility] [address] [place] [address] Dr. Suzie Brooks Oxalates, Urine 24hr 24 mg/24 hr Normal 7-44 [facility] Comment on above: Performed By: #### O X24HR #### [facility] [address] [place] [address] Dr. Suzie Brooks MAGNESIUM 24HR URINEon 02-02 Magnesium 24hr Urine 77.4 mg/24 hr Normal 12.0-293.0 [facility] Comment on above: Performed By: #### M AG24 #### [facility] [address] [place] [address] Dr. Suzie Brooks Magnesium UR 3.6 mg/dL Normal Not Estab. [facility] Comment on above: Performed By: #### M AG24 #### [facility] [address] [place] [address] Dr. Suzie Brooks PHOSPHORUS 24HR URINEon 01-10 Phosphorus, Urine 44.1 mg/dL Normal Not Estab. [facility] Comment on above: Performed By: #### U DINA, LIPID, TSH, BNP, CMP, T7 #### [facility] [address] [place] [address] Dr. Suzie Brooks Phosphorus, Urine 24hr 948 mg/24 hr Normal 390-1425 [facility] Comment on above: Performed By: #### U DINA, LIPID, TSH, BNP, CMP, T7 #### [facility] [address] [place] [address] Dr. Suzie Brooks URIC ACID 24 HR URINEon 01-10 Uric Acid, Urine 35.4 mg/dL Normal Not Estab. [facility] Comment on above: Performed By: #### U DINA, LIPID, TSH, BNP, CMP, T7 #### [facility] [address] [place] [address] Dr. Suzie Brooks Uric Acid, Urine 24hr 761.1 mg/24 hr Normal 182.4-936.8 [facility] Comment on above: Performed By: #### U DINA, LIPID, TSH, BNP, CMP, T7 #### [facility] [address] [address] [address] Suzie Brooks CALCIUM 24 HR URINEon 2021 CALC, 24 HR UR 187.0 mg/24 hr Normal 100.0-300.0 [facility] Comment on above: Performed By: #### U DINA, LIPID, TSH, BNP, CMP, T7 #### [facility] [address] [place] [address] Dr. Suzie Brooks UR CALCIUM 8.7 mg/dL Normal 5.1-21.0 [facility] Comment on above: Performed By: #### U DINA, LIPID, TSH, BNP, CMP, T7 #### [facility] [address] [place] [address] Dr. Suzie Brooks UR TOT VOL 2150 ml/24 HR Normal [facility] Comment on above: Performed By: #### U DINA, LIPID, TSH, BNP, CMP, T7 #### [facility] [address] [place] [address] Dr. Suzie Brooks CREA 24 HR URINEon 2 CREA, 24 HR UR 1983.59 mg/24 hr Normal 1,000.00- 2,0 00.00 [facility] Comment on above: Performed By: #### U DINA, LIPID, TSH, BNP, CMP, T7 #### [facility] [address] [place] [address] Dr. Suzie Brooks URINE CREAT 92.26 mg/dL Normal 20.00-300.00 [facility] Comment on above: Performed By: #### U DINA, LIPID, TSH, BNP, CMP, T7 #### [facility] [address] [place] [address] Dr. Suzie Brooks SODIUM 24 HR URINEon 02-01-2 022 NA, 24 HR UR 172 mmol/24 hr Normal 40-220 [facility] Comment on above: Performed By: #### U DINA, LIPID, TSH, BNP, CMP, T7 #### [facility] [address] [address] [address] Suzie Brooks Sodium (U) [Moles/Vol] 80 mmol/L Normal 30-90 [facility] Comment on above: Performed By: #### U DINA, LIPID, TSH, BNP, CMP, T7 #### [facility] [address] [address] [address] Suzie Brooks PTH INTACTon 01-31-2022 PTH, Intact 24 pg/mL Normal 15-65 [facility] Comment on above: Performed By: #### U DINA, LIPID, TSH, BNP, CMP, T7 #### [facility] [address] [address] [address] Suzie Brooks BUNon 01-30-2022 Urea nitrogen [Mass/Vol] 12.0 mg/dL Normal 7.0-18.0 [facility] Comment on above: Performed By: #### U DINA, LIPID, TSH, BNP, CMP, T7 #### [facility] [address] [address] [address] Suzie Brooks CALCIUMon 01-30-2022 Calcium [Mass/Vol] 8.6 mg/dL Normal 8.5-10.1 [facility] Comment on above: Performed By: #### U DINA, LIPID, TSH, BNP, CMP, T7 #### [facility] [address] [place] [address] Dr. Suzie Brooks CHLORIDEon 01-30-2022 Chloride [Moles/Vol] 104 mmol/L Normal 98-107 [facility] Comment on above: Performed By: #### U DINA, LIPID, TSH, BNP, CMP, T7 #### [facility] [address] [place] [address] Dr. Suzie Brooks CO2on 01-30-2022 CO2 [Moles/Vol] 29.3 mmol/L Normal 21.0-32.0 [facility] Comment on above: Performed By: #### U DINA, LIPID, TSH, BNP, CMP, T7 #### [facility] [address] [place] [address] Dr. Suzie Brooks CREATININEon 01-30-2022 Creatinine [Mass/Vol] 0.92 mg/dL Normal 0.70-1.30 [facility] Comment on above: Performed By: #### U DINA, LIPID, TSH, BNP, CMP, T7 #### [facility] [address] [address] [address] Suzie Brooks EGFR-AF [facility] LUCIAN >60 Normal >=60 [facility] Comment on above: Performed By: #### U DINA, LIPID, TSH, BNP, CMP, T7 #### [facility] [address] [address] [address] Suzie Brooks EGFR-NON AF [facility]AN >60 Normal >=60 [facility] Comment on above: Performed By: #### U DINA, LIPID, TSH, BNP, CMP, T7 #### [facility] [address] [place] [address] Dr. Suzie Brooks NAon 01-30-2022 Sodium [Moles/Vol] 140 mmol/L Normal 136-145 [facility] Comment on above: Performed By: #### U DINA, LIPID, TSH, BNP, CMP, T7 #### [facility] [address] [address] [address] Suzie Brooks POTASSIUMon 01-30-2022 Potassium [Moles/Vol] 4.0 mmol/L Normal 3.5-5.1 [facility] Comment on above: Performed By: #### U DINA, LIPID, TSH, BNP, CMP, T7 #### [facility] [address] [address] [address] Suzie Brooks URIC ACID SERUMon 01-30-2022 Urate [Mass/Vol] 5.2 mg/dL Normal 3.5-7.2 [facility] Comment on above: Performed By: #### U DINA, LIPID, TSH, BNP, CMP, T7 #### [facility] [address] [place] [address] Dr. Suzie Brooks US KIDNEYSon 12-18-2021 US KIDNEYS EXAMINATION: US KIDEdyta EYS HISTORY: Kidney stone ; right flank pain [...] by: BEHZAD CARRASQUILLO Date: 2021-12-18 09:51 Normal [facility] XR KUB 1 VIEWon 11-21-2021 XR KUB [...] by: BEHZAD CARRASQUILLO Date: 2021-11-21 09:45 Normal [facility] XR KUBon 11-15-2021 XR KUB [facility] [place] [address] [place] [address] XRay Report Signed Patient: Tom Aparicio MR#: [id number] 4 : 1950 Acct:[id number] Age/Sex: 71 / M ADM Date: 11/15/21 Loc: [place] Room: Type: 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 This test has not been FDA cleared [...] is terminated or revoked sooner. PERFORMED BY: [address] [address] PATHOLOGIST LANGUAGE ARTS TEACHER JIA MINAYA M.D. Performed By: #### C OVID 19 [facility] #### [facility] [address] COVID-19 Positive/NegativeOr dered By: Miki Zeng on 11-13-2021 SARS-CoV-2 (COVID-19) N gene SUKHJINDER+probe Ql (Resp) Negative Negative [facility] Comment on above: Testing for SARS-CoV -2 by RT-PCRThis test was developed and its performance characteristics determined by [employer] ([employer]) and validated at the [facility]. This test has not been FDA cleared [...] sooner. CALCULI, URINARYon 2 2,8 Dihydroxyadenine Normal [facility] Comment on above: Performed By: #### U DINA, LIPID, TSH, BNP, CMP, T7 #### [facility] [address] [place] [address] Dr. Suzie Brooks Ammonium Acid Urate Normal [facility] Comment on above: Performed By: #### U DINA, LIPID, TSH, BNP, CMP, T7 #### [facility] [address] [address] [address] Suzie Brooks Bilirubin Ql (U) Normal [facility] Comment on above: Performed By: #### U DINA, LIPID, TSH, BNP, CMP, T7 #### [facility] [address] [address] [address] Suzie Brooks Ca Oxalate Dihydrate Normal [facility] Comment on above: Performed By: #### U DINA, LIPID, TSH, BNP, CMP, T7 #### [facility] [address] [address] [address] Suzie Brooks CaHPO4 (Brushite) Normal [facility] Comment on above: Performed By: #### U DINA, LIPID, TSH, BNP, CMP, T7 #### [facility] [address] [address] [address] Suzie Brooks Calcium Bilirubinate [facility] Comment on above: Performed By: #### U DINA, LIPID, TSH, BNP, CMP, T7 #### [facility] [address] [address] [address] Suzie Brooks Calcium Carbonate [facility] Comment on above: Performed By: #### U DINA, LIPID, TSH, BNP, CMP, T7 #### [facility] [address] [address] [address] Suzie Brooks Calcium Oxalate Monohydrate 70 % [facility] Comment on above: Performed By: #### U DINA, LIPID, TSH, BNP, CMP, T7 #### [facility] [address] [address] [address] Suzie Brooks Calcium Palmitate [facility] Comment on above: Performed By: #### U DINA, LIPID, TSH, BNP, CMP, T7 #### [facility] [address] [address] [address] uSzie Brooks Calcium Phosphate Normal [facility] Comment on above: Performed By: #### U DINA, LIPID, TSH, BNP, CMP, T7 #### [facility] [address] [address] [address] Suzie Brooks Calcium Stearate Normal [facility] Comment on above: Performed By: #### U DINA, LIPID, TSH, BNP, CMP, T7 #### [facility] [address] [address] [address] Suzie Brooks Carbonate Apatite Normal [facility] Comment on above: Performed By: #### U DINA, LIPID, TSH, BNP, CMP, T7 #### [facility] [address] [address] [address] Suzie Brooks Cellular Material Normal [facility] Comment on above: Performed By: #### U DINA, LIPID, TSH, BNP, CMP, T7 #### [facility] [address] [address] [address] Suzie Brooks Cholesterol [facility] Comment on above: Performed By: #### U DINA, LIPID, TSH, BNP, CMP, T7 #### [facility] [address] [address] [address] Suzie Brooks Color (U) Brown [facility] Comment on above: Performed By: #### U DINA, LIPID, TSH, BNP, CMP, T7 #### [facility] [address] [address] [address] Suzie Brooks Comment [facility] Comment on above: Performed By: #### U DINA, LIPID, TSH, BNP, CMP, T7 #### [facility] [address] [address] [address] Suzie Brooks Comment: Comment Normal [facility] Comment on above: Result Comment: Phys rosaan questions regarding Calculi Analysis contact [facility] at: [phone]. Performed By: #### U DINA, LIPID, TSH, BNP, CMP, T7 #### [facility] [address] [address] [address] Suzie Brooks Composition Comment [facility] Comment on above: Result Comment: Perc entage (Represents the % composition) Performed By: #### U DINA, LIPID, TSH, BNP, CMP, T7 #### [facility] [address] [address] [address] Suzie Brooks Cystine [facility] Comment on above: Performed By: #### U DINA, LIPID, TSH, BNP, CMP, T7 #### [facility] [id number] Suzie Brooks Disclaimer: Comment [facility] Comment on above: Result Comment: This test was developed and its performance characteristics determined by [facility]. It has not been cleared or approved by the Food and Drug Administration. Performed By: #### U DINA, LIPID, TSH, BNP, CMP, T7 #### [facility] [address] [address] [address] Suzie Brooks Dried Blood Normal [facility] Comment on above: Performed By: #### U DINA, LIPID, TSH, BNP, CMP, T7 #### [facility] [address] [address] [address] Suzie Brooks Drug or Metabolite Normal [facility] Comment on above: Performed By: #### U DINA, LIPID, TSH, BNP, CMP, T7 #### [facility] [address] [address] [address] Suzie Brooks Hydroxyapatite [facility] Comment on above: Performed By: #### U DINA, LIPID, TSH, BNP, CMP, T7 #### [facility] [address] [address] [address] Suize Brooks Mg NH4 PO4 (Struvite) [facility] Comment on above: Performed By: #### U DINA, LIPID, TSH, BNP, CMP, T7 #### [facility] [address] [address] [address] Suzie Brooks MgHPO4 (Newberyite) Normal [facility] Comment on above: Performed By: #### U DINA, LIPID, TSH, BNP, CMP, T7 #### [facility] [address] [address] [address] Suzie Broosk Other component(s) Normal [facility] Comment on above: Performed By: #### U DINA, LIPID, TSH, BNP, CMP, T7 #### [facility] [address] [address] [address] Suzie Brooks PDF . Normal [facility] Comment on above: Performed By: #### U DINA, LIPID, TSH, BNP, CMP, T7 #### [facility] [address] [address] [address] Suzie Brooks Photo Comment [facility] Comment on above: Result Comment: Phot ograph will follow under a separate cover Performed By: #### U DINA, LIPID, TSH, BNP, CMP, T7 #### [facility] [address] [address] [address] Suzie Brooks Please note: Comment Normal [facility] Comment on above: Result Comment: Calc shamika report will follow via computer, mail or track inspector delivery. Performed By: #### U DINA, LIPID, TSH, BNP, CMP, T7 #### [facility] [address] [address] [address] Suzie Brooks Size 3x2 Normal [facility] [facility] Comment on above: Result Comment: Mult iple pieces received. Dimensions of the largest piece reported. Performed By: #### U DINA, LIPID, TSH, BNP, CMP, T7 #### [facility] [address] [address] [address] Suzie Brooks Sodium Acid Urate Normal [facility] Comment on above: Performed By: #### U DINA, LIPID, TSH, BNP, CMP, T7 #### [facility] [address] [address] [address] Suzie Brooks Source Comment [facility] Comment on above: Result Comment: Jessica Reese Performed By: #### U DINA, LIPID, TSH, BNP, CMP, T7 #### [facility] [address] [address] [address] Suzie Brooks [employer] [facility] Comment on above: Performed By: #### U DINA, LIPID, TSH, BNP, CMP, T7 #### [facility] [address] [address] [address] Suzie Brooks Uric Acid 30 % [facility] Comment on above: Performed By: #### U DINA, LIPID, TSH, BNP, CMP, T7 #### [facility] [address] [address] [address] Suzie Brooks Uric Acid Dihydrate Normal [facility] Comment on above: Performed By: #### U DINA, LIPID, TSH, BNP, CMP, T7 #### [facility] [address] [address] [address] Suzie Brooks Weight 12 mg Normal [facility] Comment on above: Performed By: #### U DINA, LIPID, TSH, BNP, CMP, T7 #### [facility] [address] [address] [address] Suzie Brooks Xanthine Normal [facility] Comment on above: Performed By: #### U DINA, LIPID, TSH, BNP, CMP, T7 #### [facility] [id number] Suzie Brooks XR KUB 1 VIEWon [...] by: RAFAEL GRAVES Date: 2021-11-12 13:18 Normal [facility] XR CHEST 2 Von 11-08-2021 XR CHEST [...] CARLOS GROSS Date: 2021-11-08 15:50 Normal [facility] CBC AUTO DIFFon 11-07-2021 BASO # 0.0 103/ul Normal 0.0-0.1 [facility] Comment on above: Performed By: #### U DINA, LIPID, TSH, BNP, CMP, T7 #### [facility] [address] [address] [address] Suzie Brooks Basophils/100 WBC (Bld) 0.2 % Normal 0.2-2.0 [facility] Comment on above: Performed By: #### U DINA, LIPID, TSH, BNP, CMP, T7 #### [facility] [address] [address] [address] Suzie Brooks EO # 0.0 103/ul Normal 0.0-0.7 [facility] Comment on above: Performed By: #### U DINA, LIPID, TSH, BNP, CMP, T7 #### [facility] [address] [place] [address] Dr. Suzie Brooks Eosinophils/100 WBC (Bld) 0.0 % Critically low 0.9-7.0 [facility] Comment on above: Performed By: #### U DINA, LIPID, TSH, BNP, CMP, T7 #### [facility] [address] [place] [address] Dr. Suzie Brooks Erythrocyte distribution width (RBC) [Ratio] 14.0 % Normal 11.0-15.0 [facility] Comment on above: Performed By: #### U DINA, LIPID, TSH, BNP, CMP, T7 #### [facility] [address] [place] [address] Dr. Suzie Brooks Hematocrit (Bld) [Volume fraction] 41.8 % Critically low 42.0-54.0 [facility] Comment on above: Performed By: #### U DINA, LIPID, TSH, BNP, CMP, T7 #### [facility] [address] [place] [address] Dr. Suzie Brooks Hemoglobin (Bld) [Mass/Vol] 13.7 g/dL Critically low 14.0-18.0 [facility] Comment on above: Performed By: #### U DINA, LIPID, TSH, BNP, CMP, T7 #### [facility] [address] [address] [address] Suzie Brooks IG # 0.14 10e3/ul Critically high 0.00-0.03 [facility] Comment on above: Performed By: #### U DINA, LIPID, TSH, BNP, CMP, T7 #### [facility] [address] [place] [address] Dr. Suzie Brooks IG % 0.9 % Critically high 0.0-0.5 [facility] Comment on above: Performed By: #### U DINA, LIPID, TSH, BNP, CMP, T7 #### [facility] [address] [place] [address] Dr. Suzie Brooks LYMPH # 1.6 103/ul Normal 1.2-3.8 [facility] Comment on above: Performed By: #### U DINA, LIPID, TSH, BNP, CMP, T7 #### [facility] [address] [address] [address] Suzie Brooks Lymphocytes/100 WBC (Bld) 10.2 % Critically low 20.5-60.0 [facility] Comment on above: Performed By: #### U DINA, LIPID, TSH, BNP, CMP, T7 #### [facility] [address] [place] [address] Dr. Suzie Brooks MANUAL DIFF REQ NO Normal [facility] Comment on above: Performed By: #### U DINA, LIPID, TSH, BNP, CMP, T7 #### [facility] [address] [place] [address] Dr. Suzie Brooks MCH (RBC) [Entitic mass] 28.8 pg Normal 25.9-34.0 [facility] Comment on above: Performed By: #### U DINA, LIPID, TSH, BNP, CMP, T7 #### [facility] [address] [place] [address] Dr. Suzie Brooks MCHC (RBC) [Mass/Vol] 32.8 g/dL Normal 29.9-35.2 [facility] Comment on above: Performed By: #### U DINA, LIPID, TSH, BNP, CMP, T7 #### [facility] [address] [place] [address] Dr. Suzie Brooks MCV (RBC) [Entitic vol] 87.8 fL Normal 80.0-94.0 [facility] Comment on above: Performed By: #### U DINA, LIPID, TSH, BNP, CMP, T7 #### [facility] [address] [place] [address] Dr. Suzie Brooks MONO # 1.0 103/ul Critically high 0.3-0.8 [facility] Comment on above: Performed By: #### U DINA, LIPID, TSH, BNP, CMP, T7 #### [facility] [address] [address] [address] Suzie Brooks Monocytes/100 WBC (Bld) 6.6 % Normal 1.7-12.0 [facility] Comment on above: Performed By: #### U DINA, LIPID, TSH, BNP, CMP, T7 #### [facility] [address] [address] [address] Suzie Brooks NEUT # 13.0 103/ul Critically high 1.4-6.5 The [facility] Comment on above: Performed By: #### U DINA, LIPID, TSH, BNP, CMP, T7 #### [facility] [address] [address] [address] Suzie Brooks Neutrophils/100 WBC (Bld) 82.1 % Critically high 43.0-75.0 [facility] Comment on above: Performed By: #### U DINA, LIPID, TSH, BNP, CMP, T7 #### [facility] [address] [address] [address] Suzie Brooks Platelet mean volume (Bld) [Entitic vol] 9.3 fL Critically low 9.5-13.5 [facility] Comment on above: Performed By: #### U DINA, LIPID, TSH, BNP, CMP, T7 #### [facility] [address] [address] [address] Suzie Brooks PLT 301 103/ul Normal 150-450 [facility] Comment on above: Performed By: #### U DINA, LIPID, TSH, BNP, CMP, T7 #### [facility] [address] [address] [address] Suzie Brooks RBC 4.76 106/ul Normal 4.70-6.10 [facility] Comment on above: Performed By: #### U DINA, LIPID, TSH, BNP, CMP, T7 #### [facility] [address] [address] [address] Suzie Brooks WBC 15.9 103/ul Critically high 4.0-11.0 The [facility] Comment on above: Performed By: #### U DINA, LIPID, TSH, BNP, CMP, T7 #### [facility] [address] [place] [address] Dr. Suzie Brooks POINT OF CARE GLUCOSEon 10-11 Glucose [Mass/Vol] 128 mg/dL Critically high 74-106 [facility] Comment on above: Performed By: #### U DINA, LIPID, TSH, BNP, CMP, T7 #### [facility] [address] [place] [address] Dr. Suzie Brooks PROF 14(COMP METB)on 022 Albumin [Mass/Vol] 3.1 g/dL Critically low 3.4-5.0 [facility] Comment on above: Performed By: #### M AG24 #### [facility] [address] [place] [address] Dr. Suzie Brooks Albumin/Globulin [Mass ratio] 0.9 {ratio} Normal [facility] Comment on above: Performed By: #### M AG24 #### [facility] [address] [place] [address] Dr. Suzie Brooks ALP [Catalytic activity/Vol] 52 U/L Normal 46-116 [facility] Comment on above: Performed By: #### M AG24 #### [facility] [address] [place] [address] Dr. Suzie Brooks ALT [Catalytic activity/Vol] 39 U/L Normal 16-63 [facility] Comment on above: Performed By: #### M AG24 #### [facility] [address] [place] [address] Dr. Suzie Brooks Anion gap [Moles/Vol] 14.7 mmol/L Normal [facility] Comment on above: Performed By: #### M AG24 #### [facility] [address] [place] [address] Dr. Suzie Brooks AST [Catalytic activity/Vol] 27 U/L Normal 15-37 [facility] Comment on above: Performed By: #### M AG24 #### [facility] [address] [place] [address] Dr. Suzie Brooks Bilirubin [Mass/Vol] 0.4 mg/dL Normal 0.2-1.3 [facility] Comment on above: Performed By: #### M AG24 #### [facility] [address] [place] [address] Dr. Suzie Brooks Calcium [Mass/Vol] 7.7 mg/dL Critically low 8.5-10.1 Th e [facility] Comment on above: Performed By: #### M AG24 #### [facility] [address] [place] [address] Dr. Suzie Brooks Chloride [Moles/Vol] 104 mmol/L Normal 98-107 [facility] Comment on above: Performed By: #### M AG24 #### [facility] [address] [place] [address] Dr. Suzie Brooks CO2 [Moles/Vol] 23.4 mmol/L Normal 22.0-30.0 [facility] Comment on above: Performed By: #### M AG24 #### [facility] [address] [place] [address] Dr. Suzie Brooks Creatinine [Mass/Vol] 1.03 mg/dL Normal 0.66-1.25 [facility] Comment on above: Performed By: #### M AG24 #### [facility] [address] [place] [address] Dr. Suzie Brooks EGFR-AF [facility] LUCIAN >60 Normal >=60 The [facility] Comment on above: Performed By: #### M AG24 #### [facility] [address] [place] [address] Dr. Suzie Brooks EGFR-NON AF [facility] LUCIAN >60 Normal >=60 [facility] Comment on above: Performed By: #### M AG24 #### [facility] [address] [place] [address] Dr. Suzie Brooks Globulin (S) [Mass/Vol] 3.5 g/dL Normal [facility] Comment on above: Performed By: #### M AG24 #### [facility] [address] [place] [address] Dr. Suzie Brooks Glucose [Mass/Vol] 142 mg/dL Critically high 74-106 T [facility] Comment on above: Performed By: #### M AG24 #### [facility] [address] [place] [address] Dr. Suzie Brooks Potassium [Moles/Vol] 4.1 mmol/L Normal 3.4-5.0 [facility] Comment on above: Performed By: #### M AG24 #### [facility] [address] [place] [address] Dr. Suzie Brooks Protein [Mass/Vol] 6.6 g/dL Normal 6.1-8.2 [facility] Comment on above: Performed By: #### M AG24 #### [facility] [address] [place] [address] Dr. Suzie Brooks Sodium [Moles/Vol] 138 mmol/L Normal 137-145 [facility] Comment on above: Performed By: #### M AG24 #### [facility] [address] [place] [address] Dr. Suzie Brooks Urea nitrogen [Mass/Vol] 15.0 mg/dL Normal 7.0-18.0 [facility] Comment on above: Performed By: #### M AG24 #### [facility] [address] [place] [address] Dr. Suzie Brooks Urea nitrogen/Creatinine [Mass ratio] 14.6 mg/mg Normal [facility] Comment on above: Performed By: #### M AG24 #### [facility] [address] [place] [address] Dr. Suzie Brooks CBC AUTO DIFFon 11-06-2021 BASO # 0.1 103/ul Normal 0.0-0.1 [facility] Comment on above: Performed By: #### U DINA, LIPID, TSH, BNP, CMP, T7 #### [facility] [address] [place] [address] Dr. Suzie Brooks Basophils/100 WBC (Bld) 0.5 % Normal 0.2-2.0 [facility] Comment on above: Performed By: #### U DINA, LIPID, TSH, BNP, CMP, T7 #### [facility] [address] [place] [address] Dr. Suzie Brooks EO # 0.3 103/ul Normal 0.0-0.7 [facility] Comment on above: Performed By: #### U DINA, LIPID, TSH, BNP, CMP, T7 #### [facility] [address] [place] [address] Dr. Suzie Brooks Eosinophils/100 WBC (Bld) 2.1 % Normal 0.9-7.0 [facility] Comment on above: Performed By: #### U DINA, LIPID, TSH, BNP, CMP, T7 #### [facility] [address] [place] [address] Dr. Suzie Brooks Erythrocyte distribution width (RBC) [Ratio] 13.8 % Normal 11.0-15.0 [facility] Comment on above: Performed By: #### U DINA, LIPID, TSH, BNP, CMP, T7 #### [facility] [address] [place] [address] Dr. Suzie Brooks Hematocrit (Bld) [Volume fraction] 46.9 % Normal 42.0-54.0 [facility] Comment on above: Performed By: #### U DINA, LIPID, TSH, BNP, CMP, T7 #### [facility] [address] [place] [address] Dr. Suzie Brooks Hemoglobin (Bld) [Mass/Vol] 15.4 g/dL Normal 14.0-18.0 [facility] Comment on above: Performed By: #### U DINA, LIPID, TSH, BNP, CMP, T7 #### [facility] [address] [place] [address] Dr. Suzie Brooks IG # 0.05 10e3/ul Critically high 0.00-0.03 [facility] Comment on above: Performed By: #### U DINA, LIPID, TSH, BNP, CMP, T7 #### [facility] [address] [place] [address] Dr. Suzie Brooks IG % 0.4 % Normal 0.0-0.5 [facility] Comment on above: Performed By: #### U DINA, LIPID, TSH, BNP, CMP, T7 #### [facility] [address] [address] [address] Suzie Brooks LYMPH # 2.8 103/ul Normal 1.2-3.8 [facility] Comment on above: Performed By: #### U DINA, LIPID, TSH, BNP, CMP, T7 #### [facility] [address] [place] [address] Dr. Suzie Brooks Lymphocytes/100 WBC (Bld) 22.5 % Normal 20.5-60.0 [facility] Comment on above: Performed By: #### U DINA, LIPID, TSH, BNP, CMP, T7 #### [facility] [address] [place] [address] Dr. Suzie Brooks MANUAL DIFF REQ NO Normal [facility] Comment on above: Performed By: #### U DINA, LIPID, TSH, BNP, CMP, T7 #### [facility] [address] [place] [address] Dr. Suzie Brooks MCH (RBC) [Entitic mass] 28.6 pg Normal 25.9-34.0 [facility] Comment on above: Performed By: #### U DINA, LIPID, TSH, BNP, CMP, T7 #### [facility] [address] [place] [address] Dr. Suzie Brooks MCHC (RBC) [Mass/Vol] 32.8 g/dL Normal 29.9-35.2 [facility] Comment on above: Performed By: #### U DINA, LIPID, TSH, BNP, CMP, T7 #### [facility] [address] [place] [address] Dr. Suzie Brooks MCV (RBC) [Entitic vol] 87.0 fL Normal 80.0-94.0 [facility] Comment on above: Performed By: #### U DINA, LIPID, TSH, BNP, CMP, T7 #### [facility] [address] [place] [address] Dr. Suzie Brooks MONO # 0.9 103/ul Critically high 0.3-0.8 [facility] Comment on above: Performed By: #### U DINA, LIPID, TSH, BNP, CMP, T7 #### [facility] [address] [address] [address] Suzie Brooks Monocytes/100 WBC (Bld) 6.9 % Normal 1.7-12.0 [facility] Comment on above: Performed By: #### U DINA, LIPID, TSH, BNP, CMP, T7 #### [facility] [address] [address] [address] Suzie Brooks NEUT # 8.4 103/ul Critically high 1.4-6.5 [facility] Comment on above: Performed By: #### U DINA, LIPID, TSH, BNP, CMP, T7 #### [facility] [address] [address] [address] Suzie Brooks Neutrophils/100 WBC (Bld) 67.6 % Normal 43.0-75.0 [facility] Comment on above: Performed By: #### U DINA, LIPID, TSH, BNP, CMP, T7 #### [facility] [address] [place] [address] Dr. Suzie Brooks Platelet mean volume (Bld) [Entitic vol] 9.6 fL Normal 9.5-13.5 [facility] Comment on above: Performed By: #### U DINA, LIPID, TSH, BNP, CMP, T7 #### [facility] [address] [place] [address] Dr. Suzie Brooks PLT 284 103/ul Normal 150-450 [facility] Comment on above: Performed By: #### U DINA, LIPID, TSH, BNP, CMP, T7 #### [facility] [address] [place] [address] Dr. Suzie Brooks RBC 5.39 106/ul Normal 4.70-6.10 [facility] Comment on above: Performed By: #### U DINA, LIPID, TSH, BNP, CMP, T7 #### [facility] [address] [place] [address] Dr. Suzie Brooks WBC 12.5 103/ul Critically high 4.0-11.0 The [facility] Comment on above: Performed By: #### U DINA, LIPID, TSH, BNP, CMP, T7 #### [facility] [address] [place], [place] [address] Dr. Suzie Brooks CULTURE BLOODon 11-06-2021 Microscopic examination of blood, culture Culture Observations: NO GROWTH AT 5 DAYS. Normal [facility] Comment on above: Performed By: #### M AG24 #### [facility] [address] [place], [place] [address] Dr. Suzie Brooks CULTURE URINEon 11-06-2021 CULTURE URINE Culture Observations : NO GROWTH. Normal [facility] Comment on above: Performed By: #### M AG24 #### [facility] [address] [place], [place] [address] Dr. Suzie Brooks Covid-19 PCR (CVDTB)on 10-10 SARS-CoV-2 (COVID-19) RNA SUKHJINDER+probe Ql (Unsp spec) Not detected Normal NOT DETECTED [facility] Comment on above: Result Comment: When diagnostic testing is negative, the possibility of a false negative should be considered in the context of a patient's recent exposures and the presence of clinical signs and symptoms consistent with SARS-CoV-2. This test is not yet approved or cleared by the [place] Food and Drug Administration (FDA). This test was developed by [employer], [place], [place]. The performance characteristics of this test were validated by The [facility]. The results are not intended to be used as the sole means for clinical diagnosis or patient management decisions. The [facility] is authorized under Clinical Laboratory Improvement [...] for this test is supported by the [employer] and Human Service's declaration that [...] DINA, LIPID, TSH, BNP, CMP, T7 #### [facility] [address] [address] [address] Suzie Brooks ER URINE PROFILEon 2 Bilirubin Ql (U) Negative Normal NEGATIVE [facility] Comment on above: Performed By: #### U DINA, LIPID, TSH, BNP, CMP, T7 #### [facility] [address] [address] [address] Suzie Brooks Clarity (U) CLEAR Normal CLEAR [facility] Comment on above: Performed By: #### U DINA, LIPID, TSH, BNP, CMP, T7 #### [facility] [address] [address] [address] Suzie Brooks Color (U) YELLOW Normal YELLOW [facility] Comment on above: Performed By: #### U DINA, LIPID, TSH, BNP, CMP, T7 #### [facility] [address] [place] [address] Dr. Suzie ESTEBAN A micrscopic examina tion will be performed if indicated. Normal [facility] Comment on above: Performed By: #### U DINA, LIPID, TSH, BNP, CMP, T7 #### [facility] [address] [address] [address] Suzie Brooks Glucose Ql (U) Negative Normal NEGATIVE [facility] Comment on above: Performed By: #### U DINA, LIPID, TSH, BNP, CMP, T7 #### [facility] [address] [address] [address] Suzie Brooks Hemoglobin Ql (U) LARGE Abnormal NEGATIVE [facility] Comment on above: Performed By: #### U DINA, LIPID, TSH, BNP, CMP, T7 #### [facility] [address] [address] [address] Suzie Brooks Ketones Ql (U) Negative Normal NEGATIVE [facility] Comment on above: Performed By: #### U DINA, LIPID, TSH, BNP, CMP, T7 #### [facility] [address] [address] [address] Suzie Brooks LEUKOCYTES TRACE Abnormal NEGATIVE [facility] Comment on above: Performed By: #### U DINA, LIPID, TSH, BNP, CMP, T7 #### [facility] [address] [place] [address] Dr. Suzie Brooks Nitrite Ql (U) Negative Normal NEGATIVE [facility] Comment on above: Performed By: #### U DINA, LIPID, TSH, BNP, CMP, T7 #### [facility] [address] [place] [address] Dr. Suzie Brooks pH (U) 5.0 [pH] Normal 5-9 [facility] Comment on above: Performed By: #### U DINA, LIPID, TSH, BNP, CMP, T7 #### [facility] [address] [place] [address] Dr. Suzie Brooks Protein (U) [Mass/Vol] 100 mg/dL Abnormal NEGATIVE/ TRACE [facility] Comment on above: Performed By: #### U DINA, LIPID, TSH, BNP, CMP, T7 #### [facility] [address] [place] [address] Dr. Suzie Brooks SPEC GRAVITY 1.030 Abnormal 1.005-<=1.02 5 [facility] Comment on above: Performed By: #### U DINA, LIPID, TSH, BNP, CMP, T7 #### [facility] [address] [place] [address] Dr. Suzie Brooks UR MICRO IND INDICATED Normal [facility] Comment on above: Performed By: #### U DINA, LIPID, TSH, BNP, CMP, T7 #### [facility] [address] [place] [address] Dr. Suzie Brooks Urobilinogen Qn (U) 0.2 {Behzad'U}/dL Normal 0.2 - 1. 0 [facility] Comment on above: Performed By: #### U DINA, LIPID, TSH, BNP, CMP, T7 #### [facility] [address] [place] [address] Dr. Suzie Brooks LACTATE/LACTIC ACIDon 2021 Lactate [Moles/Vol] 1.0 mmol/L Normal 0.7-2.0 [facility] Comment on above: Performed By: #### U DINA, LIPID, TSH, BNP, CMP, T7 #### [facility] [address] [place] [address] Dr. Suzie Brooks PROF 14(COMP METB)on 022 Albumin [Mass/Vol] 3.8 g/dL Normal 3.4-5.0 [facility] Comment on above: Performed By: #### U DINA, LIPID, TSH, BNP, CMP, T7 #### [facility] [address] [place] [address] Dr. Suzie Brooks Albumin/Globulin [Mass ratio] 1.0 {ratio} Normal [facility] Comment on above: Performed By: #### U DINA, LIPID, TSH, BNP, CMP, T7 #### [facility] [address] [place] [address] Dr. Suzie Brooks ALP [Catalytic activity/Vol] 66 U/L Normal 46-116 [facility] Comment on above: Performed By: #### U DINA, LIPID, TSH, BNP, CMP, T7 #### [facility] [address] [place] [address] Dr. Suzie Brooks ALT [Catalytic activity/Vol] 52 U/L Normal 16-63 [facility] Comment on above: Performed By: #### U DINA, LIPID, TSH, BNP, CMP, T7 #### [facility] [address] [place] [address] Dr. Suzie Brooks Anion gap [Moles/Vol] 14.7 mmol/L Normal [facility] Comment on above: Performed By: #### U DINA, LIPID, TSH, BNP, CMP, T7 #### [facility] [address] [place] [address] Dr. Suzie Brooks AST [Catalytic activity/Vol] 40 U/L Critically high 15-37 [facility] Comment on above: Performed By: #### U DINA, LIPID, TSH, BNP, CMP, T7 #### [facility] [address] [place] [address] Dr. Suzie Brooks Bilirubin [Mass/Vol] 0.6 mg/dL Normal 0.2-1.3 [facility] Comment on above: Performed By: #### U DINA, LIPID, TSH, BNP, CMP, T7 #### [facility] [address] [address] [address] Suzie Brooks Calcium [Mass/Vol] 8.2 mg/dL Critically low 8.5-10.1 Th e [facility] Comment on above: Performed By: #### U DINA, LIPID, TSH, BNP, CMP, T7 #### [facility] [address] [address] [address] Suzie Brooks Chloride [Moles/Vol] 102 mmol/L Normal 98-107 [facility] Comment on above: Performed By: #### U DINA, LIPID, TSH, BNP, CMP, T7 #### [facility] [address] [address] [address] Suzie Brooks CO2 [Moles/Vol] 27.4 mmol/L Normal 22.0-30.0 [facility] Comment on above: Performed By: #### U DINA, LIPID, TSH, BNP, CMP, T7 #### [facility] [address] [place] [address] Dr. Suzie Brooks Creatinine [Mass/Vol] 1.05 mg/dL Normal 0.66-1.25 [facility] Comment on above: Performed By: #### U DINA, LIPID, TSH, BNP, CMP, T7 #### [facility] [address] [place] [address] Dr. Suzie Brooks EGFR-AF ST LUCIAN >60 Normal >=60 [facility] Comment on above: Performed By: #### U DINA, LIPID, TSH, BNP, CMP, T7 #### [facility] [address] [place] [address] Dr. Suzie Brooks EGFR-NON AF [facility] LUCIAN >60 Normal >=60 [facility] Comment on above: Performed By: #### U DINA, LIPID, TSH, BNP, CMP, T7 #### [facility] [address] [place] [address] Dr. Suzie Brooks Globulin (S) [Mass/Vol] 3.7 g/dL Normal [facility] Comment on above: Performed By: #### U DINA, LIPID, TSH, BNP, CMP, T7 #### [facility] [address] [address] [address] Suzie Brooks Glucose [Mass/Vol] 124 mg/dL Critically high 74-106 [facility] Comment on above: Performed By: #### U DINA, LIPID, TSH, BNP, CMP, T7 #### [facility] [address] [address] [address] Suzie Brooks Potassium [Moles/Vol] 4.1 mmol/L Normal 3.4-5.0 [facility] Comment on above: Performed By: #### U DINA, LIPID, TSH, BNP, CMP, T7 #### [facility] [address] [address] [address] Suzie Brooks Protein [Mass/Vol] 7.5 g/dL Normal 6.1-8.2 [facility] Comment on above: Performed By: #### U DINA, LIPID, TSH, BNP, CMP, T7 #### [facility] [address] [address] [address] Suzie Brooks Sodium [Moles/Vol] 140 mmol/L Normal 137-145 [facility] Comment on above: Performed By: #### U DINA, LIPID, TSH, BNP, CMP, T7 #### [facility] [address] [place] [address] Dr. Suzie Brooks Urea nitrogen [Mass/Vol] 16.0 mg/dL Normal 7.0-18.0 [facility] Comment on above: Performed By: #### U DINA, LIPID, TSH, BNP, CMP, T7 #### [facility] [address] [address] [address] Suzie Brooks Urea nitrogen/Creatinine [Mass ratio] 15.2 mg/mg Normal [facility] Comment on above: Performed By: #### U DINA, LIPID, TSH, BNP, CMP, T7 #### [facility] [address] [place] [address] Dr. Suzie Brooks URINE MICROSCOPIC ONLYon BACTERIA SMALL Abnormal NONE SEEN The [facility] Comment on above: Performed By: #### U DINA, LIPID, TSH, BNP, CMP, T7 #### [facility] [address] [address] [address] Suzie Brooks Bacteria identified Cx Nom (U) INDICATED Normal [facility] Comment on above: Performed By: #### U DINA, LIPID, TSH, BNP, CMP, T7 #### [facility] [address] [place] [address] Dr. Suzie Brooks CAST NONE SEEN Normal NONE SEEN The [facility] Comment on above: Performed By: #### U DINA, LIPID, TSH, BNP, CMP, T7 #### [facility] [address] [address] [address] Suzie Brooks Crystals LM Nom (Urine sed) NONE SEEN Normal NONE SEEN The [facility] Comment on above: Performed By: #### U DINA, LIPID, TSH, BNP, CMP, T7 #### [facility] [address] [place] [address] Dr. Suzie Brooks Epithelial cells LM Ql (Urine sed) RARE Normal NONE SEEN /RARE The [facility] Comment on above: Performed By: #### U DINA, LIPID, TSH, BNP, CMP, T7 #### [facility] [address] [place] [address] Dr. Suzie Brooks MUCOUS NONE SEEN Normal NONE SEEN The [facility] Comment on above: Performed By: #### U DINA, LIPID, TSH, BNP, CMP, T7 #### [facility] [address] [place] [address] Dr. Suzie Brooks RBC 50-75 Abnormal 0-2 [facility] Comment on above: Performed By: #### U DINA, LIPID, TSH, BNP, CMP, T7 #### [facility] [address] [place] [address] Dr. Suzie Brooks WBC 20-50 Abnormal NONE SEEN The [facility] Comment on above: Performed By: #### U DINA, LIPID, TSH, BNP, CMP, T7 #### [facility] [address] [place] [address] Dr. Suzie Brooks XR KUB 1 VIEWon [...] BEHZAD SANTOS Date: 2021-11-06 21:58 Normal The [facility] XR KUB 1 VIEW EXAMINATION: XR [...] RAFAEL GRAVES Date: 2021-11-06 08:06 Normal The [facility] CBC AUTO DIFFon 11-05-2021 BASO # 0.1 103/ul Normal 0.0-0.1 [facility] Comment on above: Performed By: #### U DINA, LIPID, TSH, BNP, CMP, T7 #### [facility] [address] [place] [address] Dr. Suzie Brooks Basophils/100 WBC (Bld) 0.6 % Normal 0.2-2.0 [facility] Comment on above: Performed By: #### U DINA, LIPID, TSH, BNP, CMP, T7 #### [facility] [address] [address] [address] Suzie Brooks EO # 0.3 103/ul Normal 0.0-0.7 [facility] Comment on above: Performed By: #### U DINA, LIPID, TSH, BNP, CMP, T7 #### [facility] [address] [address] [address] Suzie Brooks Eosinophils/100 WBC (Bld) 2.2 % Normal 0.9-7.0 [facility] Comment on above: Performed By: #### U DINA, LIPID, TSH, BNP, CMP, T7 #### [facility] [address] [address] [address] Suzie Brooks Erythrocyte distribution width (RBC) [Ratio] 13.7 % Normal 11.0-15.0 [facility] Comment on above: Performed By: #### U DINA, LIPID, TSH, BNP, CMP, T7 #### [facility] [address] [address] [address] Suzie Brooks Hematocrit (Bld) [Volume fraction] 49.0 % Normal 42.0-54.0 [facility] Comment on above: Performed By: #### U DINA, LIPID, TSH, BNP, CMP, T7 #### [facility] [address] [place] [address] Dr. Suzie Brooks Hemoglobin (Bld) [Mass/Vol] 15.9 g/dL Normal 14.0-18.0 [facility] Comment on above: Performed By: #### U DINA, LIPID, TSH, BNP, CMP, T7 #### [facility] [address] [place] [address] Dr. Suzie Brooks IG # 0.07 10e3/ul Critically high 0.00-0.03 [facility] Comment on above: Performed By: #### U DINA, LIPID, TSH, BNP, CMP, T7 #### [facility] [address] [place] [address] Dr. Suzie Brooks IG % 0.5 % Normal 0.0-0.5 [facility] Comment on above: Performed By: #### U DINA, LIPID, TSH, BNP, CMP, T7 #### [facility] [address] [place] [address] Dr. Suzie Brooks LYMPH # 3.1 103/ul Normal 1.2-3.8 [facility] Comment on above: Performed By: #### U DINA, LIPID, TSH, BNP, CMP, T7 #### [facility] [address] [place] [address] Dr. Suzie Brooks Lymphocytes/100 WBC (Bld) 23.8 % Normal 20.5-60.0 [facility] Comment on above: Performed By: #### U DINA, LIPID, TSH, BNP, CMP, T7 #### [facility] [address] [address] [address] Suzie Brooks MANUAL DIFF REQ NO Normal [facility] Comment on above: Performed By: #### U DINA, LIPID, TSH, BNP, CMP, T7 #### [facility] [address] [address] [address] Suzie Brooks MCH (RBC) [Entitic mass] 28.8 pg Normal 25.9-34.0 [facility] Comment on above: Performed By: #### U DINA, LIPID, TSH, BNP, CMP, T7 #### [facility] [address] [place] [address] Dr. Suzie Brooks MCHC (RBC) [Mass/Vol] 32.4 g/dL Normal 29.9-35.2 [facility] Comment on above: Performed By: #### U DINA, LIPID, TSH, BNP, CMP, T7 #### [facility] [address] [address] [address] Suzie Brooks MCV (RBC) [Entitic vol] 88.8 fL Normal 80.0-94.0 [facility] Comment on above: Performed By: #### U DINA, LIPID, TSH, BNP, CMP, T7 #### [facility] [address] [address] [address] Suzie Brooks MONO # 0.9 103/ul Critically high 0.3-0.8 [facility] Comment on above: Performed By: #### U DINA, LIPID, TSH, BNP, CMP, T7 #### [facility] [address] [place] [address] Dr. Suzie Brooks Monocytes/100 WBC (Bld) 6.8 % Normal 1.7-12.0 [facility] Comment on above: Performed By: #### U DINA, LIPID, TSH, BNP, CMP, T7 #### [facility] [address] [place] [address] Dr. Suzie Brooks NEUT # 8.7 103/ul Critically high 1.4-6.5 [facility] Comment on above: Performed By: #### U DINA, LIPID, TSH, BNP, CMP, T7 #### [facility] [address] [address] [address] Suzie Brooks Neutrophils/100 WBC (Bld) 66.1 % Normal 43.0-75.0 [facility] Comment on above: Performed By: #### U DINA, LIPID, TSH, BNP, CMP, T7 #### [facility] [address] [address] [address] Suzie Brooks Platelet mean volume (Bld) [Entitic vol] 9.4 fL Critically low 9.5-13.5 [facility] Comment on above: Performed By: #### U DINA, LIPID, TSH, BNP, CMP, T7 #### [facility] [address] [address] [address] Suzie Brooks PLT 278 103/ul Normal 150-450 [facility] Comment on above: Performed By: #### U DINA, LIPID, TSH, BNP, CMP, T7 #### [facility] [address] [address] [address] Suzie Brooks RBC 5.52 106/ul Normal 4.70-6.10 [facility] Comment on above: Performed By: #### U DINA, LIPID, TSH, BNP, CMP, T7 #### [facility] [address] [address] [address] Suzie Brooks WBC 13.1 103/ul Critically high 4.0-11.0 The [facility] Comment on above: Performed By: #### U DINA, LIPID, TSH, BNP, CMP, T7 #### [facility] [address] [place] [address] ABD/PELVIS WO CONon [...] RAFAEL GRAVES Date: 2021-11-05 11:46 Normal The [facility] CULTURE URINEon 11-05-2021 CULTURE URINE Culture Observations : No growth Normal [facility] Comment on above: Performed By: #### M AG24 #### [facility] [address] [place] [address] Dr. Suzie Brooks ER URINE PROFILEon 2 Bilirubin Ql (U) Negative Normal NEGATIVE The [facility] Comment on above: Performed By: #### C VDTB #### [facility] [address] [place] [address] Dr. Suzie Brooks Clarity (U) CLEAR Normal CLEAR [facility] Comment on above: Performed By: #### C VDTBH #### [facility] [address] [place] [address] Dr. Suzie Brooks Color (U) DK. YELLOW Normal YELLOW [facility] Comment on above: Performed By: #### C VDTBH #### [facility] [address] [place] [address] Dr. Suzie Brooks ERUAHD A micrscopic examina tion will be performed if indicated. Normal [facility] Comment on above: Performed By: #### C VDTBH #### [facility] [address] [place] [address] Dr. Suzie Brooks Glucose Ql (U) Negative Normal NEGATIVE [facility] Comment on above: Performed By: #### C VDTBH #### [facility] [address] [place] [address] Dr. Suzie Brooks Hemoglobin Ql (U) LARGE Abnormal NEGATIVE [facility] Comment on above: Performed By: #### C VDTBH #### [facility] [address] [place] [address] Dr. Suzie Brooks Ketones Ql (U) Negative Normal NEGATIVE [facility] Comment on above: Performed By: #### C VDTBH #### [facility] [address] [place] [address] Dr. Suzie Brooks LEUKOCYTES Negative Normal NEGATIVE [facility] Comment on above: Performed By: #### C VDTBH #### [facility] [address] [place] [address] Dr. Suzie Brooks Nitrite Ql (U) Negative Normal NEGATIVE [facility] Comment on above: Performed By: #### C VDTBH #### [facility] [address] [place] [address] Dr. Suzie Brooks pH (U) 5.0 [pH] Normal 5-9 [facility] Comment on above: Performed By: #### C VDTBH #### [facility] [address] [place] [address] Dr. Suzie Brooks Protein (U) [Mass/Vol] 100 mg/dL Abnormal NEGATIVE/ TRACE [facility] Comment on above: Performed By: #### C VDTBH #### [facility] [address] [place] [address] Dr. Suzie Brooks SPEC GRAVITY >=1.030 Abnormal 1.005-<=1.02 5 [facility] Comment on above: Performed By: #### C VDTBH #### [facility] [address] [place] [address] Dr. Suzie Brooks UR MICRO IND INDICATED Normal [facility] Comment on above: Performed By: #### C VDTBH #### [facility] [address] [place] [address] Dr. Suzie Brooks Urobilinogen Qn (U) 0.2 {Behzad'U}/dL Normal 0.2 - 1. 0 [facility] Comment on above: Performed By: #### C VDTB #### [facility] [address] [address] [address] Suzie Brooks PROF 14(COMP METB)on 022 Albumin [Mass/Vol] 3.9 g/dL Normal 3.4-5.0 [facility] Comment on above: Performed By: #### U DINA, LIPID, TSH, BNP, CMP, T7 #### [facility] [address] [place] [address] Dr. Suzie Brooks Albumin/Globulin [Mass ratio] 1.1 {ratio} Normal [facility] Comment on above: Performed By: #### U DINA, LIPID, TSH, BNP, CMP, T7 #### [facility] [address] [address] [address] Suzie Brooks ALP [Catalytic activity/Vol] 64 U/L Normal 46-116 [facility] Comment on above: Performed By: #### U DINA, LIPID, TSH, BNP, CMP, T7 #### [facility] [address] [place] [address] Dr. Suzie Brooks ALT [Catalytic activity/Vol] 57 U/L Normal 16-63 [facility] Comment on above: Performed By: #### U DINA, LIPID, TSH, BNP, CMP, T7 #### [facility] [address] [address] [address] Suzie Brooks Anion gap [Moles/Vol] 14.4 mmol/L Normal [facility] Comment on above: Performed By: #### U DINA, LIPID, TSH, BNP, CMP, T7 #### [facility] [address] [address] [address] Suzie Brooks AST [Catalytic activity/Vol] 51 U/L Critically high 15-37 [facility] Comment on above: Performed By: #### U DINA, LIPID, TSH, BNP, CMP, T7 #### [facility] [address] [address] [address] Suzie Brooks Bilirubin [Mass/Vol] 0.8 mg/dL Normal 0.2-1.3 [facility] Comment on above: Performed By: #### U DINA, LIPID, TSH, BNP, CMP, T7 #### [facility] [address] [address] [address] Suzie Brooks Calcium [Mass/Vol] 8.5 mg/dL Normal 8.5-10.1 [facility] Comment on above: Performed By: #### U DINA, LIPID, TSH, BNP, CMP, T7 #### [facility] [address] [address] [address] Suzie Brooks Chloride [Moles/Vol] 103 mmol/L Normal 98-107 [facility] Comment on above: Performed By: #### U DINA, LIPID, TSH, BNP, CMP, T7 #### [facility] [address] [address] [address] Suzie Brooks CO2 [Moles/Vol] 26.8 mmol/L Normal 22.0-30.0 [facility] Comment on above: Performed By: #### U DINA, LIPID, TSH, BNP, CMP, T7 #### [facility] [address] [address] [address] Suzie Brooks Creatinine [Mass/Vol] 0.98 mg/dL Normal 0.66-1.25 [facility] Comment on above: Performed By: #### U DINA, LIPID, TSH, BNP, CMP, T7 #### [facility] [address] [address] [address] Suzie Brooks EGFR-AF ST LUCIAN >60 Normal >=60 [facility] Comment on above: Performed By: #### U DINA, LIPID, TSH, BNP, CMP, T7 #### [facility] [address] [address] [address] Suzie Brooks EGFR-NON AF [facility] LUCIAN >60 Normal >=60 [facility] Comment on above: Performed By: #### U DINA, LIPID, TSH, BNP, CMP, T7 #### [facility] [address] [address] [address] Suzie Brooks Globulin (S) [Mass/Vol] 3.7 g/dL Normal [facility] Comment on above: Performed By: #### U DINA, LIPID, TSH, BNP, CMP, T7 #### [facility] [address] [address] [address] Suzie Brooks Glucose [Mass/Vol] 118 mg/dL Critically high 74-106 [facility] Comment on above: Performed By: #### U DINA, LIPID, TSH, BNP, CMP, T7 #### [facility] [address] [place] [address] Dr. Suzie Brooks Potassium [Moles/Vol] 4.2 mmol/L Normal 3.4-5.0 [facility] Comment on above: Performed By: #### U DINA, LIPID, TSH, BNP, CMP, T7 #### [facility] [address] [place] [address] Dr. Suzie Brooks Protein [Mass/Vol] 7.6 g/dL Normal 6.1-8.2 [facility] Comment on above: Performed By: #### U DINA, LIPID, TSH, BNP, CMP, T7 #### [facility] [address] [place] [address] Dr. Suzie Brooks Sodium [Moles/Vol] 140 mmol/L Normal 137-145 [facility] Comment on above: Performed By: #### U DINA, LIPID, TSH, BNP, CMP, T7 #### [facility] [address] [place] [address] Dr. Suzie Brooks Urea nitrogen [Mass/Vol] 14.0 mg/dL Normal 7.0-18.0 [facility] Comment on above: Performed By: #### U DINA, LIPID, TSH, BNP, CMP, T7 #### [facility] [address] [place] [address] Dr. Suzie Brooks Urea nitrogen/Creatinine [Mass ratio] 14.3 mg/mg Normal [facility] Comment on above: Performed By: #### U DINA, LIPID, TSH, BNP, CMP, T7 #### [facility] [address] [address] [address] Suzie Brooks URINE MICROSCOPIC ONLYon BACTERIA MODERATE Abnormal NONE SEEN [facility] Comment on above: Performed By: #### C VDTBH #### [facility] [address] [address] [address] Suzie Brooks Bacteria identified Cx Nom (U) INDICATED Normal [facility] Comment on above: Performed By: #### C VDTBH #### [facility] [address] [address] [address] Suzie Brooks CAST SEEN Abnormal NONE SEEN [facility] Comment on above: Performed By: #### C VDTBH #### [facility] [address] [place] [address] Dr. Suzie Brooks Crystals LM Nom (Urine sed) NONE SEEN Normal NONE SEEN [facility] Comment on above: Performed By: #### C VDTBH #### [facility] [address] [place] [address] Dr. Suzie Brooks Epithelial cells LM Ql (Urine sed) RARE Normal NONE SEEN /RARE [facility] Comment on above: Performed By: #### C VDTBH #### [facility] [address] [place] [address] Dr. Suzie Brooks HYALINE CAST RARE Normal [facility] Comment on above: Performed By: #### C VDTBH #### [facility] [address] [place] [address] Dr. Suzie Brooks MUCOUS NONE SEEN Normal NONE SEEN [facility] Comment on above: Performed By: #### C VDTBH #### [facility] [address] [address] [address] Suzie Brooks RBC (U) [#/Vol] /uL Abnormal 0-2 [facility] Comment on above: Performed By: #### C VDTBH #### [facility] [address] [place] [address] Dr. Suzie Brooks WBC NONE SEEN Normal NONE SEEN [facility] Comment on above: Performed By: #### C VDTBH #### [facility] [address] [address] [address] Suzie Brooks XR KUB 1 VIEWon [...] BEHZAD CARRASQUILLO Date: 2021-11-01 12:07 Normal [facility] CBC AUTO DIFFon 10-26-2021 BASO # 0.1 103/ul Normal 0.0-0.1 [facility] Comment on above: Performed By: #### U DINA, LIPID, TSH, BNP, CMP, T7 #### [facility] [address] [address] [address] Suzie Brooks Basophils/100 WBC (Bld) 0.7 % Normal 0.2-2.0 [facility] Comment on above: Performed By: #### U DINA, LIPID, TSH, BNP, CMP, T7 #### [facility] [address] [address] [address] Suzie Brooks EO # 0.2 103/ul Normal 0.0-0.7 [facility] Comment on above: Performed By: #### U DINA, LIPID, TSH, BNP, CMP, T7 #### [facility] [address] [address] [address] Suzie Brooks Eosinophils/100 WBC (Bld) 1.5 % Normal 0.9-7.0 [facility] Comment on above: Performed By: #### U DINA, LIPID, TSH, BNP, CMP, T7 #### [facility] [address] [address] [address] Suzie Brooks Erythrocyte distribution width (RBC) [Ratio] 13.9 % Normal 11.0-15.0 [facility] Comment on above: Performed By: #### U DINA, LIPID, TSH, BNP, CMP, T7 #### [facility] [address] [address] [address] Suzie Brooks Hematocrit (Bld) [Volume fraction] 47.5 % Normal 42.0-54.0 [facility] Comment on above: Performed By: #### U DINA, LIPID, TSH, BNP, CMP, T7 #### [facility] [address] [address] [address] Suzie Brooks Hemoglobin (Bld) [Mass/Vol] 15.5 g/dL Normal 14.0-18.0 [facility] Comment on above: Performed By: #### U DINA, LIPID, TSH, BNP, CMP, T7 #### [facility] [address] [address] [address] Suzie Brooks IG # 0.06 10e3/ul Critically high 0.00-0.03 [facility] Comment on above: Performed By: #### U DINA, LIPID, TSH, BNP, CMP, T7 #### [facility] [address] [address] [address] Suzie Brooks IG % 0.5 % Normal 0.0-0.5 [facility] Comment on above: Performed By: #### U DINA, LIPID, TSH, BNP, CMP, T7 #### [facility] [address] [address] [address] Suzie Brooks LYMPH # 2.6 103/ul Normal 1.2-3.8 [facility] Comment on above: Performed By: #### U DINA, LIPID, TSH, BNP, CMP, T7 #### [facility] [address] [address] [address] Suzie Brooks Lymphocytes/100 WBC (Bld) 23.1 % Normal 20.5-60.0 [facility] Comment on above: Performed By: #### U DINA, LIPID, TSH, BNP, CMP, T7 #### [facility] [address] [address] [address] Suzie Brooks MANUAL DIFF REQ NO Normal [facility] Comment on above: Performed By: #### U DINA, LIPID, TSH, BNP, CMP, T7 #### [facility] [address] [place] [address] Dr. Suzie Brooks MCH (RBC) [Entitic mass] 28.9 pg Normal 25.9-34.0 [facility] Comment on above: Performed By: #### U DINA, LIPID, TSH, BNP, CMP, T7 #### [facility] [address] [place] [address] Dr. Suzie Brooks MCHC (RBC) [Mass/Vol] 32.6 g/dL Normal 29.9-35.2 [facility] Comment on above: Performed By: #### U DINA, LIPID, TSH, BNP, CMP, T7 #### [facility] [address] [place] [address] Dr. Suzie Brooks MCV (RBC) [Entitic vol] 88.5 fL Normal 80.0-94.0 [facility] Comment on above: Performed By: #### U DINA, LIPID, TSH, BNP, CMP, T7 #### [facility] [address] [place] [address] Dr. Suzie Brooks MONO # 0.9 103/ul Critically high 0.3-0.8 [facility] Comment on above: Performed By: #### U DINA, LIPID, TSH, BNP, CMP, T7 #### [facility] [address] [place] [address] Dr. Suzie Brooks Monocytes/100 WBC (Bld) 7.9 % Normal 1.7-12.0 [facility] Comment on above: Performed By: #### U DINA, LIPID, TSH, BNP, CMP, T7 #### [facility] [address] [place] [address] Dr. Suzie Brooks NEUT # 7.4 103/ul Critically high 1.4-6.5 [facility] Comment on above: Performed By: #### U DINA, LIPID, TSH, BNP, CMP, T7 #### [facility] [address] [place] [address] Dr. Suzie Brooks Neutrophils/100 WBC (Bld) 66.3 % Normal 43.0-75.0 [facility] Comment on above: Performed By: #### U DINA, LIPID, TSH, BNP, CMP, T7 #### [facility] [address] [address] [address] Suzie Brooks Platelet mean volume (Bld) [Entitic vol] 9.6 fL Normal 9.5-13.5 [facility] Comment on above: Performed By: #### U DINA, LIPID, TSH, BNP, CMP, T7 #### [facility] [address] [address] [address] Suzie Brooks PLT 252 103/ul Normal 150-450 [facility] Comment on above: Performed By: #### U DINA, LIPID, TSH, BNP, CMP, T7 #### [facility] [address] [place] [address] Dr. Suzie Brooks RBC 5.37 106/ul Normal 4.70-6.10 [facility] Comment on above: Performed By: #### U DINA, LIPID, TSH, BNP, CMP, T7 #### [facility] [address] [address] [address] Suzie Brooks WBC 11.2 103/ul Critically high 4.0-11.0 [facility] Comment on above: Performed By: #### U DINA, LIPID, TSH, BNP, CMP, T7 #### [facility] [address] [place] [address] Dr. Suzie Brooks [facility] SARS-CoV-2 (COVID-19) RNA SUKHJINDER+probe Ql (Unsp spec) Not detected Normal NOT DETECTED [facility] Comment on above: Result Comment: This test is not yet approved or cleared by the [place] FDA. When there are no FDA-approved or cleared tests available, and other criteria are met, FDA can make tests available under an emergency access mechanism called an Emergency Use Authorization (EUA). The EUA for this test is supported by the [employer] and Human Service's (HHS's) declaration [...] DINA, LIPID, TSH, BNP, CMP, T7 #### [facility] [address] [place] [address] Dr. Suzie Brooks PROF CHEM 8 (BAS METB)on Anion gap [Moles/Vol] 7.7 mmol/L Normal [facility] Comment on above: Performed By: #### C VDTBH #### [facility] [address] [place] [address] Dr. Suzie Brooks Calcium [Mass/Vol] 8.6 mg/dL Normal 8.5-10.1 [facility] Comment on above: Performed By: #### C VDTBH #### [facility] [address] [place] [address] Dr. Suzie Brooks Chloride [Moles/Vol] 104 mmol/L Normal 98-107 [facility] Comment on above: Performed By: #### C VDTBH #### [facility] [address] [place] [address] Dr. Suzie Brooks CO2 [Moles/Vol] 31.8 mmol/L Critically high 22.0-30.0 [facility] Comment on above: Performed By: #### C VDTBH #### [facility] [address] [place] [address] Dr. Suzie Brooks Creatinine [Mass/Vol] 0.99 mg/dL Normal 0.66-1.25 [facility] Comment on above: Performed By: #### C VDTBH #### [facility] [address] [place] [address] Dr. Suzie Brooks EGFR-AF ST LUCIAN >60 Normal >=60 [facility] Comment on above: Performed By: #### C VDTBH #### [facility] [address] [address] [address] Suzie Brooks EGFR-NON AF [facility] LUCIAN >60 Normal >=60 [facility] Comment on above: Performed By: #### C VDTBH #### [facility] [address] [address] [address] Suzie Brooks Glucose [Mass/Vol] 94 mg/dL Normal 74-106 [facility] Comment on above: Performed By: #### C VDTBH #### [facility] [address] [address] [address] Suzie Brooks Potassium [Moles/Vol] 4.5 mmol/L Normal 3.4-5.0 [facility] Comment on above: Performed By: #### C VDTBH #### [facility] [address] [place] [address] Dr. Suzie Brooks Sodium [Moles/Vol] 139 mmol/L Normal 137-145 [facility] Comment on above: Performed By: #### C VDTBH #### [facility] [address] [address] [address] Suzie Brooks Urea nitrogen [Mass/Vol] 12.0 mg/dL Normal 7.0-18.0 [facility] Comment on above: Performed By: #### C VDTBH #### [facility] [address] [place] [address] Dr. Suzie Brooks Urea nitrogen/Creatinine [Mass ratio] 12.1 mg/mg Normal [facility] Comment on above: Performed By: #### C VDTBH #### [facility] [address] [address] [address] Suzie Brooks PROTIMEon 10-26-2021 INR Coag (PPP) [Relative time] 0.99 {INR} Normal [facility] Comment on above: Performed By: #### C VDTBH #### [facility] [address] [place] [address] Dr. Suzie Brooks INR GUIDELINES SEE BELOW Normal [facility] Comment on above: Result Comment: TOMMY RED INR: 2.0 - 3.0 CONDITIONS NOT LISTED BELOW 2.5 - 3.5 FOR PROSTHETIC HEART VALVE REPLACEMENT 2.5 - 3.5 RECURRENT THROMBOSIS Performed By: #### C VDTBH #### [facility] [address] [place] [address] Dr. Suzie Brooks PT Coag (PPP) [Time] 10.7 s Normal 9.0-11.6 [facility] Comment on above: Performed By: #### C VDTBH #### [facility] [address] [place] [address] Dr. Suzie Brooks PTTon 10-26-2021 aPTT Coag (Bld) [Time] 26.4 s Normal 22.3-36.2 [facility] Comment on above: Performed By: #### C VDTBH #### [facility] [address] [place] [address] Dr. Suzie Brooks XR KUB 1 VIEWon [...] by: RAFAEL GRAVES Date: 2021-10-17 13:26 Normal [facility] Vital Signs Date Time Vital Sign Value Performing Clinician Dario mcdonough 04-11-2023 11:55-0400 Blood Pressure Location Miki ZENG [facility] 04-11-2023 11:55-0400 Diastolic blood pressure 76 mm[Hg] Miki ZENG [facility] 04-11-2023 11:55-0400 Heart rate 80 /min Miki ZENG [facility] 04-11-2023 11:55-0400 Respiratory rate 16 /min Miki ZENG [facility] 04-11-2023 11:55-0400 Systolic blood pressure 134 mm[Hg] Miki ZENG [facility] 02-25-2022 14:20-0400 Blood Pressure Location Miki ZENG [facility] 02-25-2022 14:20-0400 Diastolic blood pressure 100 mm[Hg] Miki ZENG [facility] 02-25-2022 14:20-0400 Heart rate 86 /min Miki ZENG [facility] 02-25-2022 14:20-0400 Respiratory rate 16 /min Miki ZENG [facility] 02-25-2022 14:20-0400 Systolic blood pressure 155 mm[Hg] Miki ZENG [facility] Encounters Encounter Date Encounter Type Care Provider Facility Start: 04-16-2024 ambulatory Miki Muhammadi ty:[facility] Start: 04-11-2023 End: 04-12-2023 ambulatory Miki ZENG Facility:[facility] Start: 04-11-2023 End: 04-11-2023 Patient encounter procedure Miki ZENG [facility] Start: 08-14-[address] MARIELLE LERMA Facility : Start: 08-13-[address] MARIELLE LERMA Facility :[facility] Start: 07-26-2022 End: 07-27-[address] MARIELLE LERMA Facility:[facility] Start: 07-18-2022 End: 07-19-[address] MIKI ZENG Facility:[facility] Start: 05-15-2022 End: 05-16-[address] MARIELLE LERMA Facility:[facility] Start: 02-25-2022 End: 02-25-2022 Patient encounter procedure Miki ZENG [facility] Start: 02-18-2022 End: 02-18-[address] MARIELLE ELRMA Facility:[facility] Start: 02-16-2022 End: 02-17-[address] MARIELLE LERMA Facility:[facility] Start: 02-01-2022 End: 02-01-[address] MIKI ZENG Facility:[facility] Start: 01-30-2022 End: 01-31-[address] MIKI ZENG Facility:[facility] Start: 12-18-2021 End: 12-19-[address] MIKI ZENG Facility:[facility] Start: 11-21-2021 End: 11-22-[address] MARIELLE LERMA Facility:[facility] Start: 11-13-2021 End: 11-13-2021 Patient encounter procedure MD Marielle Lerma Work Phone: [facility] Start: 11-12-2021 End: 11-13-[address] MIKI ZENG Facility:[facility] Start: 11-06-2021 End: 11-07-[address] MARIELLE LERMA Facility:[facility] Start: 11-05-2021 End: 11-05-[address] MARIELLE LERMA Facility:[facility] Start: 11-01-2021 End: 11-01-[address] MIKI ZENG Facility:[facility] Start: 10-31-2021 Encounter for preprocedural cardiovascular examination DR MIKI ZENG [facility] Start: 10-30-[address] MIKI ZENG [facility] ity:[facility] Start: 10-26-2021 End: 10-27-[address] MIKI ZENG Facility:[facility] Start: 10-26-2021 End: 10-27-2021 Encounter for preprocedural cardiovascular examination DR MIKI ZENG Facility:[facility] Start: 10-17-2021 End: 10-18-[address] MIKI ZENG Facility:[facility] Procedures Date Procedure Procedure Detail Performing Clinician Start: 05-15-[address] JHONATAN ZENG Comment on above: Performed By: #### U DINA, LIPID, TSH, BNP, CMP, T7 #### [facility] [address] [place] [address] Dr. Suzie Brooks Start: 11-21-2021 Cystoscopy Miki VINCENT Start: 11-06-2021 Cystoscopy Miki VINCENT Start: 11-08-2013 Colonoscopy Miki VINCENT Comment on above: normal Arthroplasty of knee Miki ZENG Comment on above: right Arthroscopic knee operation Miki ZENG Arthroscopic knee operation Miki ZENG Basal cell carcinoma (morphologic abnormality) Miki ZENG Lithotripsy Miki ZENG Reconstruction of nose Yoannamiller ash THOR Repair of musculoten dinous cuff of shoulder Miki ZENG Repair of umbilical hernia P atrick THOR Wide excision Miki ZENG Comment on above: basal cell CA- LLE Immunizations Immunization Date Immunization Notes Care Provider Fa cility 05-31-2022 SARS-CoV-2 (COVID-19 ) [id number] Mikikimberly ZENG [facility] Comment on above: Result Comment: 2022: [id number] 12-22-2021 SARS-CoV-2 (COVID-19 ) mRNA-1273 vaccine Miki ZENG [facility] 06-05-2021 SARS-CoV-2 (COVID-19 ) mRNA-1273 vaccine [employer] [facility] 05-29-2021 influenza virus vaccine, unspecified formulation [employer] [facility] 05-15-2021 influenza virus vaccine, unspecified formulation [employer] [facility] 11-09-2020 SARS-CoV-2 (COVID-19 ) mRNA-1273 vaccine [employer] [facility] 11-01-2020 SARS-CoV-2 (COVID-19 ) mRNA-1273 vaccine [employer] [facility] 10-09-2020 SARS-CoV-2 (COVID-19 ) mRNA-1273 vaccine [employer] [facility] 10-05-2020 SARS-CoV-2 (COVID-19 ) mRNA-1273 vaccine [employer] [facility] 05-17-2020 influenza virus vaccine, unspecified formulation [employer] [facility] 06-24-2019 tetanus toxoid, redu roberto carlos diphtheria toxoid, and acellular pertussis vaccine, adsorbed [employer] [facility] 05-25-2019 influenza virus vaccine, unspecified formulation [employer] [facility] 05-22-2017 influenza virus vaccine, unspecified formulation Mikikimberly ZENG [facility] 05-22-2017 pneumococcal conjuga te vaccine, 13 valent Miki ZENG [facility] 05-30-2016 influenza, unspecifi ed formulation Miki ZENG [facility] 11-01-2013 zoster vaccine, live Miki ZENG [facility] 12-18-2005 hepatitis A vaccine, adult dosage Miki THOR [facility] 10-18-2005 hepatitis B vaccine, pediatric or pediatric/adolescent dosage Miki ZENG [facility] 10-18-2005 tetanus and diphther ia toxoids, adsorbed, preservative free, for adult use (2 Lf of tetanus toxoid and 2 Lf of diphtheria toxoid) Miki ZENG [facility] 07-26-2005 hepatitis B vaccine, pediatric or pediatric/adolescent dosage Miki ZENG [facility] 06-20-2005 hepatitis A vaccine, adult dosage Miki ZENG [facility] 06-20-2005 hepatitis B vaccine, pediatric or pediatric/adolescent dosage Miki ZENG [facility] Payers Date Payer Category Payer Medicare [id number] Private Health Insurance [id number] 1950 Unknown [id number] 2.16.84 0.1.319937.3.579.2.593 1952 Unknown [id number] 2.16.84 0.1.875467.3.579.2.593 1952 Unknown [id number] 2.16.84 0.1.410873.3.579.2.593 1952 Unknown [id number] 2.16.84 0.1.503863.3.579.2.593 1952 Unknown [id number] 2.16.84 0.1.819636.3.579.2.593 1952 Unknown [id number] 2.16.84 0.1.120054.3.579.2.593 1952 Unknown [id number] 2.16.84 0.1.241192.3.579.2.593 1952 Unknown [id number] 2.16.84 0.1.063913.3.579.2.593 1952 Unknown [id number] 2.16.84 0.1.144193.3.579.2.593 1952 Unknown [id number] 2.16.84 0.1.171215.3.579.2.593 1952 Unknown [id number] 2.16.84 0.1.652089.3.579.2.593 1952 Unknown [id number] 2.16.84 0.1.480239.3.579.2.593 1952 Unknown [id number] 2.16.84 0.1.477966.3.579.2.593 1952 Unknown [id number] 2.16.84 0.1.295541.3.579.2.593 1952 Unknown [id number] 2.16.84 0.1.729015.3.579.2.593 1952 Unknown [id number] 2.16.84 0.1.790609.3.579.2.593 1952 Unknown [id number] 2.16.84 0.1.338122.3.579.2.593 1952 Unknown [id number] 2.16.84 0.1.595699.3.579.2.593 1952 Unknown [id number] 2.16.8 40.1.081809.3.579.2.727 1952 Unknown [id number] 2.16.8 40.1.611517.3.579.2.727 Self-pay Self Pay [id number] Social History Date Type Detail Facility Start: 10-19-2019 End: 04-11-2023 Tobacco smoking status VTIS Ex-smoker (finding) [facility] Start: 1950 Sex Assigned At Male F [facility] Tobacco smoking status Never [facility] Sex Assigned At Male [facility] Functional Status Date Assessment Result Facility 04-11-2023 Functional Status N/A [facility] 02-25-2022 Functional Status N/A [facility] Discharge instructions 04-11-2023 Note Date & [...] include: ?8 oz (237 mL) of milk, ulsxykx-zmjwrksmycvy-vziof milk, and calcium-fortifiedfruit juice. Calcium-fortified means that [...] ?Spinach (cooked), rhubarb, beets, sweet potatoes, and Mal[place]ian chard. ?Peanuts. ?Potato chips, albanian fries, and baked potatoes with skin on. ?Nuts and nut products. ?Chocolate. If you regularly take a diuretic medicine, make sure to eat at least 1 or 2 servings of fruits or vegetables that are high in potassium each day. These include: ?Avocado. ?Banana. ?[place], prune, carrot, or tomato juice. ?Baked potato. [...] magnesium, fish oil, or vitamin B6. Take vljk-ktd-osrnkij and prescription medicines only as told by [...] Casseroles. Pizza. Lasagna. Frozen meals. Potato chips. Luxembourgish fries. The items listed above may not [...] provider. Document Revised: 04/08/2022 Document Reviewed: 04/08/2022 [place] Patient Education 2022 [employer]. Follow Up Care 08/19/2022 10:39:03 With:THOR BATISTA, Miki Cedeño, URL Address: [facility] [address], [place] [address]- When:Within 1 Year(s) [facility] Discharge instructions 02-25-2022 Note Date & [...] 07/28/2006 Document Revised: 04/16/2019 Document Reviewed: 06/27/2017 [place] Patient Education 2020 [employer]. 02/25/2022 15:28:39 Kidney Stones, Qxuz-hd-Qpjn Kidney Stones Kidney stones are rock-like masses [...] Follow these instructions at home: Medicines Take jjqd-vip-cfvsppx and prescription medicines only as told by [...] 01/13/2009 Document Revised: 12/14/2019 Document Reviewed: 12/14/2019 [place] Patient Education 2019 [employer]. Follow Up Care 11/21/2021 12:48:10 With:THOR BATISTA, Miki Cedeño, URL Address: [facility] [address], [place] [address]- [phone] When:Within 4 Month(s) Comments:4 mo fu with IVP [facility] Evaluation + Plan note 02-25-2022 Note Date & Type Note Facility 02-25-2022 Evaluation + Plan note Diagnostic Tests PendingPSA Total 02/25/22Creatinine 02/25/22 [facility] Evaluation + Plan note Note Date & Type Note Facility Evaluation + Plan note Future Appointments Appointment Date:04/16/2024 11:00:00 AM Scheduled Provider:Miki ZENG MD Location:[facility] Appointment Type:URO Office Visit [facility] Evaluation note Note Date & Type Note Facility Evaluation note No assessment information availa [facility] Work Phone: Hospital course Narrative Note Date & Type Note Facility Hospital course Narrative No data available for this section [facility] Progress note Note Date & Type Note Facility Progress note No data available for this section [facility] Chief Complaint and Reason for Visit Chief [...] section and content) DATE CREATED AUTHOR 11/22/2021 [facility] DATE CREATED AUTHOR AUTHOR'S ORGANIZ ATION 08/13/2022 [facility] DATE CREATED AUTHOR AUTHOR'S ORGANIZ ATION 10/12/2023 [facility] FOR RECORDS PERTAINING TO PATIENTS WHO ARE [...] BE BASED ON THE PRIMARY CLINICAL RECORDS. [employer] [facility]. provides no warranty or guarantee of the accuracy or completeness of information in this document.
--- NOTE | 2023-11-04 12:38 | CT_ITS ---
[address] [address] Patient Name: RIZWAN LOCK MRN: [id number] date: 1950 Sex: M Assigned Patient Location: [place] Current Patient Location: [place] Accession/Order Number: [id number] Exam Date: 11/04/2023 15:50 Report Date: 11/04/2023 16:23 At the request of: MARIELLE RAMIREZ Procedure: CT angio chest EXAM: CT angio chest EXAM: CT angio chest HISTORY: dyspnea COMPARISON: 08/15/2023 TECHNIQUE: CT chest with intravenous contrast was performed with timing for the evaluation for pulmonary arteries. Multiplanar reformats were performed. MIP (maximum intensity projection) images or 3D post processing was performed. Dose reduction techniques were achieved by using automated exposure control and/or adjustment of mA and/or kV according to patient size and/or use of iterative reconstruction technique. FINDINGS: Lungs: Mild bilateral centrilobular emphysema. No consolidation, pneumothorax, or effusion. Airways: Normal. Mediastinum: No adenopathy. Aorta: No aneurysm. Cardiac: Normal size. No pericardial effusion. Pulmonary vasculature: Diagnostic opacification of pulmonary arteries without evidence of pulmonary embolus. Normal morphology. Bones: No acute bony abnormality. Axilla: No adenopathy. Thyroid gland: No abnormality demonstrated on provided imaging. Soft tissues: Unremarkable. Upper abdomen: Unremarkable. Additional findings: None. CT/CT angio chest IMPRESSION:No evidence of pulmonary embolus or acute intrathoracic abnormality. Electronically authenticated by: ANGLE CANDELARIA Date: 11/04/2023 16:23
[2023-11-04 13:16] LABS: Basophils Absolute Auto 0.1 10^3/uL (0.0-0.1); Basophils Percent Auto 0.6 % (0.2-2.0); Eosinophils Absolute Auto 0.2 10^3/uL (0.0-0.7); Eosinophils Percent Auto 1.9 % (0.9-7.0); Hemoglobin 14.9 g/dL (14.0-18.0); Immature Granulocytes Abs Auto 0.05 10^3/uL (0.00-0.03); Immature Granulocytes Pct Auto 0.4 % (0.0-0.5); Lymphocytes Absolute Auto 2.3 10^3/uL (1.2-3.8); Lymphocytes Percent Auto 20.4 % (20.5-60.0); Mean Corpuscular HGB Conc 33.1 g/dL (29.9-35.2); Mean Corpuscular Volume 90.5 fL (80.0-94.0); Mean Platelet Volume 9.6 fL (9.5-13.5); Monocytes Absolute Auto 0.8 10^3/uL (0.3-0.8); Monocytes Percent Auto 6.8 % (1.7-12.0); Neutrophils Absolute Auto 7.9 10^3/uL (1.4-6.5); Neutrophils Percent Auto 69.9 % (43.0-75.0); Platelet Count 272 10^3/uL (150-450); Red Blood Count 4.97 10^6/uL (4.70-6.10); Red Cell Distribution Width 14.9 % (11.0-15.0); White Blood Count 11.3 10^3/uL (4.0-11.0)
[2023-11-04 13:30] LABS: Erythrocyte Sedimentation Rate 21 mm/hr (<=20)
[2023-11-04 13:45] LABS: Alanine Aminotransferase 31 U/L (16-63); Albumin Globulin Ratio 1.1; Albumin Level 3.4 g/dL (3.4-5.0); Alkaline Phosphatase 62 U/L (46-116); Anion Gap 14.2; Aspartate Amino Transferase 24 U/L (15-37); BUN Creatinine Ratio 15.6; Bilirubin Total 0.5 mg/dL (0.2-1.0); Calcium 8.7 mg/dL (8.5-10.1); Carbon Dioxide 27.6 mmol/L (21.0-32.0); Chloride 105 mmol/L (98-107); Estimated GFR (African America >60 (>=60); Estimated GFR (Non-African Ame >60 (>=60); Globulin 3.2 g/dL; Glucose 113 mg/dL (74-106); Potassium 3.8 mmol/L (3.5-5.1); Sodium 143 mmol/L (136-145); Total Protein 6.6 g/dL (6.4-8.2)
[2023-11-04 13:50] LABS: Troponin I High Sensitivity 8.1 pg/mL (4.0-76.1)
[2023-11-04 13:56] LABS: C Reactive Protein <0.50 mg/dL (<=0.50)
[2023-11-04 14:03] LABS: Lactate/Lactic Acid 1.5 mmol/L (0.4-2.0)
--- NOTE | 2023-11-04 14:36 | PM.PLCN ---
History of Present Illness History of Present Illness Reason for consult: pneumonia Chief complaint: LEFT UPPER LOBE PNEOMONIA Narrative: 73yo male presents to [facility], directly admitted from his PCP's office, for presumptive pneumonia. The patient has had several admissions within the past 3 months respiratory-related for pneumonia. Cultures have all been negative (Adamaris is considered a contaminant). He was most recently treated outpatient on 10/01/2023 with steroids and antibiotics (cefdinir). He said he felt better during the admission, but when he was home, he never felt any significant improvement. He has no history of any immunodeficiency. He said he had frequent bronchitis until he had his pneumonia stopped and did not have issues after that. No known aspiration/choking. No history of asthma or COPD. Former smoker, smoked from 1969 - 1988. I personally reviewed past imaging. CXR 10/01/2023 and 09/03/2023 were interpreted as no evidence of pneumonia with elevation of the right hemidiaphragm. CTA 08/15/2023 likewise was unremarkable with right hemidiaphragm elevation. Further back in the PACS system, a CXR 07/26/2022 and abdominal/pelvis CT 06/04/2021 likewise show evidence of an elevated right hemidiaphragm. No primary parenchymal abnormalities were identified. He denies any thoracic surgery. Denies any injury to the neck or back. 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 - Broken internal right knee prosthesis, initial encounter (ICD-10) Umbilical hernia ?K42.9 - Umbilical hernia without obstruction or gangrene (ICD-10) Kidney stones ?N20.0 - Calculus of kidney (ICD-10) Hx of skin malignancy ?Z85.828 - Personal history of other malignant neoplasm of skin (ICD-10) Chest pain ?R07.9 - Chest pain, unspecified (ICD-10) Surgical History (Updated 09/02/23 @ 16:17 by Nory Patel) History of cataract surgery ?Z98.49 - Cataract extraction status, unspecified eye (ICD-10) History of renal stent H/O lithotripsy ?Z98.890 - Other specified postprocedural states (ICD-10) Family History (Updated 09/02/23 @ 16:18 by Nory Patel) Mother Family history of cancer Family history of hypertension Father Family history of diabetes mellitus Family history of hypertension Family history of myocardial infarction Social History (Updated 09/02/23 @ 16:20 by Nory Patel) Within the past year, how often did you have a drink containing alcohol: 2-4 times a month Smoking status: Former smoker Non-prescribed substance use: denies use Previous occupational history: Retired Highest level of school completed/degree received: some college, no degree Are you now , , , , never or living with a partner: In a typical week, how many times do you talk on the telephone with family, friends, or neighbors: 3 or more times per week How often do you get together with friends or relatives: 3 or more times per week How often do you attend advent or uatsdin services: never Do you belong to any clubs or organizations such as advent groups unions, [employer] or athletic groups, or school groups: no Total score: 2 Score interpretation: A score of greater than or equal to 2 indicates the lowest level of social isolation. Little interest or pleasure in doing things: not at all Feeling down, depressed, or hopeless: not at all Feel stressed/tense/nervous/anxious/difficulty sleeping: not at all Do you think of yourself as: straight/heterosexual Gender Identity: male Meds Home Medications and Allergies Home Medications ?Medication ?Instructions ?Recorded ?Confirmed ?Type allopurinol 300 mg tablet 300 mg PO DAILY 08/15/23 11/04/23 History aspirin 81 mg capsule 81 mg PO DAILY #30 caps 08/15/23 11/04/23 Rx hydrochlorothiazide 12.5 mg capsule 12.5 mg PO QDAY 08/15/23 11/04/23 History meloxicam 15 mg tablet 15 mg PO DAILY 08/15/23 11/04/23 History potassium citrate 10 mEq (1,080 10 meq PO BID 08/15/23 11/04/23 History mg) tablet,extended release primidone 50 mg tablet 50 mg PO BID 08/15/23 11/04/23 History simvastatin 20 mg tablet 20 mg PO .QHS 08/15/23 11/04/23 History solifenacin 10 mg tablet 10 mg PO DAILY 08/15/23 11/04/23 History tamsulosin 0.4 mg capsule 0.4 mg PO BID 08/15/23 11/04/23 History lisinopril 40 mg tablet 40 mg PO .QD 09/02/23 11/04/23 History fluticasone propionate 50 2 spray intranasal QD #16 grams 09/06/23 11/04/23 Rx mcg/actuation nasal spray,suspension montelukast 10 mg tablet 10 mg PO QHS #30 tabs 09/06/23 11/04/23 Rx clonidine HCl 0.1 mg tablet 0.1 mg PO BID 11/04/23 11/04/23 History Allergies Allergy/AdvReac Type Severity Reaction Status Date / Time No Known Drug Allergies Allergy Verified 08/15/23 09:06 Exam Constitutional Vital Signs, click to edit/add: Last Vital Signs Temp 98.4 F 11/04/23 13:19 Pulse 87 11/04/23 13:19 Resp 16 11/04/23 13:19 Pulse Ox 93 L 11/04/23 13:19 O2 Del Method Room Air 11/04/23 13:19 Other: Having coughing paroxysms in the room, productive whitish sputum expectorated. HENMT Other: Mallampati III. No candidiasis Chest Other: Mild thoracic kyphosis Respiratory Other: Harsh cough as described above. Diffuse expiratory wheezes with otherwise diminished breath sounds throughout. Cardio Other: RRR GI Other: Increased central adiposity Extremity Common normals: normal to inspection Neuro Common normals: oriented x3 Sensorium/orientation: awake and alert Psych Common normals: mental status grossly normal Results Laboratory Findings Abnormal lab findings: Abnormal Labs 11/04/23 12:52 WBC 11.3 H Lymph % (Auto) 20.4 L Neut # (Auto) 7.9 H Abs Immat Gran (auto) 0.05 H ESR 21 H Glucose 113 H Assessment and Plan Assessment and Plan (1) Acute asthmatic bronchitis: Assessment and Plan: 1. Acute asthmatic bronchitis. Imaging pending. Diffuse wheezes on examination. Ordered respiratory panel. Continue with bronchodilators, steroids (systemic & inhaled). Will eventually require PFT. (2) Elevated hemidiaphragm: Assessment and Plan: Right hemidiaphragm elevation since at least 06/04/2021 - suspect this finding is contributing to suggestion of pneumonia. Unclear if paralyzed hemidiaphragm vs. hepatomegaly - will need sniff test to diagnose. If it is paralyzed, unknown how this happened as there is no history of neck/chest trauma or surgery. Additionally, the right lung will not be as functionable as the left and would be more apt for decreased clearance of secretions and development of infections. Patient would benefit from pulmonary toilet regardless. Will eventually require a sniff test. (3) History of tobacco abuse: Assessment and Plan: 19 pack-year history, quit 1988. Does not meet current LDCT criteria. (4) Obesity: Assessment and Plan: BMI 39, contributing to a restrictive pulmonary physiology. Weight loss recommended. Qualifiers: Obesity type: unspecified obesity type Obesity classification: adult class 2 (BMI 35 - 39.9) Serious obesity comorbidity presence: unspecified whether serious comorbidity present Body mass index: BMI 39.0-39.9 Qualified Code(s): E66.9 - Obesity, unspecified; Z68.39 - Body mass index [BMI] 39.0-39.9, adult
[2023-11-04 16:07] LABS: Glucometer 94 mg/dL (74-106)
[2023-11-04] MEDS: FLUCONAZOLE IN NACL,ISO-OSM 200 MG/100 ML PIGGYBACK 100 MG IV (16:22)
[2023-11-04] MEDS: METHYLPREDNISOLONE SOD SUCC PF 125 MG/2 ML VIAL IVP ×2 (16:27→21:47)
[2023-11-04] MEDS: IPRATROPIUM/ALBUTEROL SULFATE 3 ML AMPUL.NEB IH ×2 (17:15→22:53)
[2023-11-04] MEDS: CLINDAMYCIN PHOS 300 MG/50 ML PIGGYBACK 100 MG IV ×2 (17:55→23:03)
[2023-11-04] MEDS: CEFTAZIDIME 2,000 MG in 0.9 % SODIUM CHLORIDE 100 ML 200 MG IV (18:32)
[2023-11-04] MEDS: L. ACIDOPHILUS/L.BULGARICUS 1 PACKET GRAN.PACK PO (20:13)
[2023-11-04] MEDS: MELOXICAM 7.5 MG TABLET 15 MG PO (20:13)
[2023-11-04] MEDS: POTASSIUM CITRATE 10 MEQ ER TABLET PO (20:13)
[2023-11-04] MEDS: PRIMIDONE 50 MG TABLET PO (20:13)
[2023-11-04] MEDS: TAMSULOSIN HCL 0.4 MG CAPSULE 0.400000000000000022 MG PO (20:13)
[2023-11-04] MEDS: FLUTICASONE PROPIONATE 50 MCG NASAL SPRAY 2 SPRAY NS (20:13)
[2023-11-04 20:18] LABS: Glucometer 130 mg/dL (74-106)
[2023-11-04] MEDS: ATORVASTATIN CALCIUM 10 MG TABLET PO (21:04)
[2023-11-04] MEDS: MONTELUKAST SODIUM 10 MG TABLET PO (21:04)
[2023-11-04] MEDS: BUDESONIDE 0.5 MG/2 ML AMPULE NEB IH (22:54)
[2023-11-05] VITALS (16 sets, daily range): BP systolic 113–154; BP diastolic 70–96; PULSE 52–104; RESP 16–20; TEMP 36.5–37.1; O2SAT 94–98
[2023-11-05] MEDS: CEFTAZIDIME 2,000 MG in 0.9 % SODIUM CHLORIDE 100 ML 100 MG IV (03:06)
[2023-11-05] MEDS: METHYLPREDNISOLONE SOD SUCC PF 125 MG/2 ML VIAL IVP (04:13)
[2023-11-05] MEDS: IPRATROPIUM/ALBUTEROL SULFATE 3 ML AMPUL.NEB IH (04:38)
[2023-11-05] MEDS: CLINDAMYCIN PHOS 300 MG/50 ML PIGGYBACK 100 MG IV ×4 (05:00→23:25)
[2023-11-05 05:43] LABS: Basophils Percent Auto 0.1 % (0.2-2.0); Hematocrit 46.5 % (42.0-54.0); Immature Granulocytes Abs Auto 0.09 10^3/uL (0.00-0.03); Immature Granulocytes Pct Auto 0.6 % (0.0-0.5); Lymphocytes Absolute Auto 1.4 10^3/uL (1.2-3.8); Lymphocytes Percent Auto 10.1 % (20.5-60.0); Mean Corpuscular HGB Conc 32.3 g/dL (29.9-35.2); Mean Corpuscular Hemoglobin 30.1 pg (25.9-34.0); Mean Corpuscular Volume 93.2 fL (80.0-94.0); Mean Platelet Volume 9.8 fL (9.5-13.5); Monocytes Absolute Auto 0.1 10^3/uL (0.3-0.8); Monocytes Percent Auto 0.9 % (1.7-12.0); Neutrophils Absolute Auto 12.4 10^3/uL (1.4-6.5); Neutrophils Percent Auto 88.3 % (43.0-75.0); Platelet Count 265 10^3/uL (150-450); Red Blood Count 4.99 10^6/uL (4.70-6.10); White Blood Count 14.1 10^3/uL (4.0-11.0)
[2023-11-05 06:11] LABS: Adenovirus NOT DETECTED (NOT DETECTE); Bordetella parapertussis NOT DETECTED (NOT DETECTE); Coronavirus 229E NOT DETECTED (NOT DETECTE); Coronavirus HKU1 NOT DETECTED (NOT DETECTE); Coronavirus NL63 NOT DETECTED (NOT DETECTE); Coronavirus OC43 NOT DETECTED (NOT DETECTE); Human Metapneumovirus NOT DETECTED (NOT DETECTE); Human Rhinovirus/Enterovirus NOT DETECTED (NOT DETECTE); Influenza A NOT DETECTED (NOT DETECTE); Influenza B NOT DETECTED (NOT DETECTE); Mycoplasma pneumoniae NOT DETECTED (NOT DETECTE); Parainfluenza Virus 1 NOT DETECTED (NOT DETECTE); Parainfluenza Virus 2 NOT DETECTED (NOT DETECTE); Parainfluenza Virus 3 NOT DETECTED (NOT DETECTE); Parainfluenza Virus 4 NOT DETECTED (NOT DETECTE); Respiratory Syncytial Virus NOT DETECTED (NOT DETECTE); SARS-CoV-2 NOT DETECTED (NOT DETECTE)
[2023-11-05 06:25] LABS: Alanine Aminotransferase 23 U/L (16-63); Albumin Globulin Ratio 0.9; Albumin Level 3.1 g/dL (3.4-5.0); Alkaline Phosphatase 55 U/L (46-116); Anion Gap 18.6; Aspartate Amino Transferase 28 U/L (15-37); BUN Creatinine Ratio 15.6; Bilirubin Total 0.4 mg/dL (0.2-1.0); Calcium 8.7 mg/dL (8.5-10.1); Carbon Dioxide 18.5 mmol/L (21.0-32.0); Chloride 103 mmol/L (98-107); Estimated GFR (African America >60 (>=60); Estimated GFR (Non-African Ame >60 (>=60); Globulin 3.6 g/dL; Glucose 151 mg/dL (74-106); Potassium 4.1 mmol/L (3.5-5.1); Sodium 136 mmol/L (136-145); Total Protein 6.7 g/dL (6.4-8.2)
[2023-11-05 07:45] LABS: Glucometer 175 mg/dL (74-106)
--- NOTE | 2023-11-05 08:08 | P.PN_ITS ---
Progress Note: Subjective Subjective Interval history: Patient admitted from the office chest with suspected pneumonia. CT scan did not confirm, more likely acute exacerbation of her asthmatic bronchitis. He states his breathing is better this morning. Exam Constitutional Vital Signs, click to edit/add: Last Vital Signs Temp 98.8 F 11/05/23 07:15 Pulse 52 L 11/05/23 07:14 Resp 16 11/05/23 07:17 BP 138/74 11/05/23 07:14 Pulse Ox 95 11/05/23 07:14 O2 Del Method Room Air 11/05/23 07:14 Documenting provider has reviewed patient's vital signs: yes Common normals: no apparent distress Chest Common normals: inspection of chest normal Respiratory Common normals: normal respiratory effort Auscultation: rhonchi (Rhonchi from yesterday's exam has cleared); no wheezes and no egophony (Could not appreciate the change today) Cardio Common normals: no JVD, regular rate, regular rhythm and no murmurs GI Common normals: Normal to inspection, nondistended, normoactive bowel sounds present Extremity Common normals: normal to inspection (No edema) and full ROM Progress Note: Objective Labs Labs: Short CBC 11/04/23 11/05/23 Range/Units 12:52 04:48 WBC 11.3 H 14.1 H (4.0-11.0) 10^3/uL Hgb 14.9 15.0 (14.0-18.0) g/dL Hct 45.0 46.5 (42.0-54.0) % Plt Count 272 265 (150-450) 10^3/uL BMP 11/04/23 11/05/23 12:52 04:48 Sodium 143 136 Potassium 3.8 4.1 Chloride 105 103 Carbon Dioxide 27.6 18.5 L BUN 14.0 14.0 Creatinine 0.90 0.90 Glucose 113 H 151 H Calcium 8.7 8.7 Liver Function 11/04/23 11/05/23 Range/Units 12:52 04:48 Total Bilirubin 0.5 0.4 (0.2-1.0) mg/dL AST 24 28 (15-37) U/L ALT 31 23 (16-63) U/L Alkaline Phosphatase 62 55 (46-116) U/L Albumin 3.4 3.1 L (3.4-5.0) g/dL Progress Note: A&P Assessment and Plan (1) Acute asthmatic bronchitis: (2) Elevated hemidiaphragm: (3) History of tobacco abuse: (4) Obesity: Qualifiers: Obesity type: unspecified obesity type Obesity classification: adult class 2 (BMI 35 - 39.9) Serious obesity comorbidity presence: unspecified whether serious comorbidity present Body mass index: BMI 39.0-39.9 Qualified Code(s): E66.9 - Obesity, unspecified; Z68.39 - Body mass index [BMI] 39.0-39.9, adult (5) Weakness: (6) Acute dyspnea: Plan Lactic acidosis with leukocytosis with left shift consistent with acute bacterial process with failed outpatient treatment for acute asthmatic bronchitis. CT scan with suspected pneumonia but did not confirm on CT scan.. Has been on cefdinir. Did have a sputum culture in the past that grew yeast, has been treated with Diflucan for that. He is improved this morning with current IV antibiotic regiment. Appreciate input from pulmonology Leukocytosis with left shift secondary to acute exacerbation of asthmatic bronchitis with bacterial process. COPD-on CT scan, history of smoking but quit a long time ago. Some mild COPD. See pulmonology input Tremor-this is related to his breathing treatments. Will change patient to Xopenex. Hyperglycemia likely steroid-mild at this point, continue to follow, will advance diet. Hypertension--hold medications for now-stable Coronary artery disease-no chest pain-will check BNP secondary to fluid resuscitation-stable Inpatient status statement: Patient had been treated for the last week as an outpatient for suspected pneumonia. With left upper lobe egophony on exam, failed outpatient treatment with cefdinir. With failed outpatient treatment made patient inpatient status from the beginning. His medically necessary treatment will span at least 2 midnights. Likely 3.
[2023-11-05] MEDS: LISINOPRIL 20 MG TABLET 40 MG PO (08:46)
[2023-11-05] MEDS: SOLIFENACIN SUCCINATE 10 MG TABLET PO (08:46)
[2023-11-05] MEDS: ASPIRIN 81 MG TAB.CHEW PO (08:46)
[2023-11-05] MEDS: POTASSIUM CITRATE 10 MEQ ER TABLET PO ×2 (08:46→20:36)
[2023-11-05] MEDS: HYDROCHLOROTHIAZIDE 25 MG TABLET 12.5 MG PO (08:47)
[2023-11-05] MEDS: PRIMIDONE 50 MG TABLET PO ×2 (08:48→20:36)
[2023-11-05] MEDS: L. ACIDOPHILUS/L.BULGARICUS 1 PACKET GRAN.PACK PO ×2 (08:48→20:35)
[2023-11-05] MEDS: ALLOPURINOL 300 MG TABLET PO (08:48)
[2023-11-05] MEDS: TAMSULOSIN HCL 0.4 MG CAPSULE 0.400000000000000022 MG PO ×2 (08:48→20:36)
[2023-11-05] MEDS: MELOXICAM 7.5 MG TABLET 15 MG PO ×2 (08:48→20:35)
[2023-11-05] MEDS: FLUTICASONE PROPIONATE 50 MCG NASAL SPRAY 2 SPRAY NS ×2 (08:49→20:35)
[2023-11-05] MEDS: INSULIN ASPART 300 UNIT/3 ML PEN SUBQ ×4 (08:49→21:16)
[2023-11-05] MEDS: METHYLPREDNISOLONE SOD SUCC PF 125 MG/2 ML VIAL 60 MG IVP ×3 (09:38→21:32)
[2023-11-05] MEDS: BUDESONIDE 0.5 MG/2 ML AMPULE NEB IH ×2 (10:11→23:15)
[2023-11-05] MEDS: IPRATROPIUM BROMIDE 0.5 MG/2.5 ML VIAL.NEB IH ×3 (10:12→23:15)
[2023-11-05] MEDS: LEVALBUTEROL HCL 0.63 MG/3 ML VIAL.NEB 0.630000000000000004 MG IH ×3 (10:12→23:15)
--- NOTE | 2023-11-05 10:40 | CM.NOTE ---
Important Message From Medicare discussed with pt, pt verbalizes understanding and signs paper. Original given to pt and copy placed on pt's chart.
[2023-11-05 11:27] LABS: Glucometer 173 mg/dL (74-106)
[2023-11-05] MEDS: 0.9 % SODIUM CHLORIDE 250 ML 10 ML IV (11:42)
[2023-11-05] MEDS: CEFTAZIDIME 2,000 MG in 0.9 % SODIUM CHLORIDE 100 ML 200 MG IV ×2 (11:50→20:33)
[2023-11-05] MEDS: FLUCONAZOLE IN NACL,ISO-OSM 200 MG/100 ML PIGGYBACK 100 MG IV (14:22)
[2023-11-05 16:04] LABS: Glucometer 171 mg/dL (74-106)
--- NOTE | 2023-11-05 17:42 | PM.PLPN ---
Progress Note: A&P Assessment and Plan (1) Acute asthmatic bronchitis: Assessment and Plan: Marked improvement overnight with resolution of wheezes and decrease in cough frequency and intensity. Will still need outpatient w/up once cough resolves. As he appears to respond to steroids very well, would recommend discharge on a prolonged prednisone taper and consider starting a maintenance inhaler (ICS/LABA like Dulera or Advair). Major concern of his is tremors from albuterol, but I feel he would benefit from beta2 agonist which outweigh the risks of a possible tremor with them. He can then F/U with me in ~1 month and if cough has resolved, can discuss further evaluation such as PFT. (2) Elevated hemidiaphragm: Assessment and Plan: Right hemidiaphragm elevation since at least 06/04/2021. Will need sniff test outpatient. (3) Centrilobular emphysema: Assessment and Plan: Incidental finding on CTA 11/04/2023. Will order AAT outpatient. (4) History of tobacco abuse: Assessment and Plan: 19 pack-year history, quit 1988. Does not meet current LDCT criteria. (5) Obesity: Assessment and Plan: Inducing a restrictive physiology. Weight loss recommended. Qualifiers: Obesity type: unspecified obesity type Obesity classification: adult class 2 (BMI 35 - 39.9) Serious obesity comorbidity presence: unspecified whether serious comorbidity present Body mass index: BMI 39.0-39.9 Qualified Code(s): E66.9 - Obesity, unspecified; Z68.39 - Body mass index [BMI] 39.0-39.9, adult Plan Patient was seen at 07:25 today. Subjective Subjective Interval history: He states he feels much better today. Coughing frequency and intensity have both decreased since admission. States the albuterol nebs cause him to be too tremulous; has same response, but decreased with albuterol HFA at home. CTA done yesterday - reviewed results with patient. Other than mild emphysematous changes, there were no abnormal findings. Respiratory panel was negative. Exam Constitutional Vital Signs, click to edit/add: Last Vital Signs Temp 97.7 F 11/05/23 15:35 Pulse 87 11/05/23 17:08 Resp 20 11/05/23 17:08 BP 152/96 H 11/05/23 15:34 Pulse Ox 98 11/05/23 17:08 O2 Del Method Room Air 11/05/23 17:08 Documenting provider has reviewed patient's vital signs: yes Common normals: no apparent distress (not coughing like yesterday) HENMT Other: No candidiasis. Mallampati III Chest Other: Mild thoracic kyphosis Respiratory Other: Diffuse wheezes yesterday have essentially resolved. Breath sounds are diminished but clear today. Cardio Other: RRR GI Other: Increased central adiposity Extremity Common normals: normal to inspection Neuro Common normals: oriented x3 Sensorium/orientation: awake and alert Psych Common normals: mental status grossly normal
[2023-11-05 20:51] LABS: Glucometer 189 mg/dL (74-106)
[2023-11-05] MEDS: MONTELUKAST SODIUM 10 MG TABLET PO (21:17)
[2023-11-05] MEDS: ATORVASTATIN CALCIUM 10 MG TABLET PO (21:17)
[2023-11-06] VITALS (9 sets, daily range): BP systolic 136–158; BP diastolic 64–78; PULSE 70–106; RESP 18; TEMP 36.3–36.7; O2SAT 93–98
[2023-11-06] MEDS: IPRATROPIUM BROMIDE 0.5 MG/2.5 ML VIAL.NEB IH ×4 (04:12→23:33)
[2023-11-06] MEDS: LEVALBUTEROL HCL 0.63 MG/3 ML VIAL.NEB 0.630000000000000004 MG IH ×4 (04:12→23:34)
[2023-11-06] MEDS: METHYLPREDNISOLONE SOD SUCC PF 125 MG/2 ML VIAL 60 MG IVP (04:33)
[2023-11-06] MEDS: CEFTAZIDIME 2,000 MG in 0.9 % SODIUM CHLORIDE 100 ML 200 MG IV ×3 (04:33→21:31)
[2023-11-06 05:23] LABS: Hematocrit 43.9 % (42.0-54.0); Hemoglobin 14.4 g/dL (14.0-18.0); Mean Corpuscular HGB Conc 32.8 g/dL (29.9-35.2); Mean Corpuscular Hemoglobin 30.3 pg (25.9-34.0); Mean Corpuscular Volume 92.2 fL (80.0-94.0); Mean Platelet Volume 9.6 fL (9.5-13.5); Platelet Count 296 10^3/uL (150-450); Red Blood Count 4.76 10^6/uL (4.70-6.10); Red Cell Distribution Width 15.5 % (11.0-15.0); White Blood Count 24.2 10^3/uL (4.0-11.0)
[2023-11-06 05:37] LABS: Alanine Aminotransferase 23 U/L (16-63); Albumin Level 3.2 g/dL (3.4-5.0); Alkaline Phosphatase 53 U/L (46-116); Anion Gap 15.9; Aspartate Amino Transferase 18 U/L (15-37); BUN Creatinine Ratio 27.7; Bilirubin Total 0.3 mg/dL (0.2-1.0); Calcium 8.8 mg/dL (8.5-10.1); Carbon Dioxide 22.8 mmol/L (21.0-32.0); Chloride 105 mmol/L (98-107); Estimated GFR (African America >60 (>=60); Estimated GFR (Non-African Ame >60 (>=60); Globulin 3.2 g/dL; Glucose 175 mg/dL (74-106); Potassium 3.7 mmol/L (3.5-5.1); Sodium 140 mmol/L (136-145); Total Protein 6.4 g/dL (6.4-8.2)
[2023-11-06] MEDS: CLINDAMYCIN PHOS 300 MG/50 ML PIGGYBACK 100 MG IV ×4 (05:39→23:50)
[2023-11-06 06:16] LABS: Lymphocytes Absolute Manual 1.21 10^3/uL (1.20-3.80); Monocytes Absolute Manual 0.96 10^3/uL (0.30-0.80); Segmented Neut Absolute Manual 20.81 10^3/uL (1.4-6.5)
[2023-11-06 06:17] LABS: Atypical Lymphocytes Abs Man 1.21; Hypersegmented Neutrophils 1+
[2023-11-06 07:33] LABS: Glucometer 163 mg/dL (74-106)
--- NOTE | 2023-11-06 08:09 | P.PN_ITS ---
Progress Note: Subjective Subjective Interval history: Patient stated breathing was much better yesterday. Starting to have wheeze coming back again today. But he is due for an aerosol treatment Exam Constitutional Vital Signs, click to edit/add: Last Vital Signs Temp 98.0 F 11/06/23 04:25 Pulse 89 11/06/23 04:25 Resp 18 11/06/23 04:25 BP 146/64 H 11/06/23 04:25 Pulse Ox 94 L 11/06/23 04:25 O2 Del Method Room Air 11/06/23 04:25 Documenting provider has reviewed patient's vital signs: yes Common normals: no apparent distress Chest Common normals: inspection of chest normal Respiratory Common normals: normal respiratory effort Auscultation: rhonchi (Still have rhonchi in right lower lobe but egophony has resolved) and wheezes (Just had aerosol treatment); no egophony (Could not appreciate the change today) Cardio Common normals: no JVD, regular rate, regular rhythm and no murmurs GI Common normals: Normal to inspection, nondistended, normoactive bowel sounds present Extremity Common normals: normal to inspection (No edema) and full ROM Progress Note: Objective Labs Labs: Short CBC 11/06/23 Range/Units 05:09 WBC 24.2 H (4.0-11.0) 10^3/uL Hgb 14.4 (14.0-18.0) g/dL Hct 43.9 (42.0-54.0) % Plt Count 296 (150-450) 10^3/uL BMP 11/06/23 05:09 Sodium 140 Potassium 3.7 Chloride 105 Carbon Dioxide 22.8 BUN 26.0 H Creatinine 0.94 Glucose 175 H Calcium 8.8 Liver Function 11/06/23 Range/Units 05:09 Total Bilirubin 0.3 (0.2-1.0) mg/dL AST 18 (15-37) U/L ALT 23 (16-63) U/L Alkaline Phosphatase 53 (46-116) U/L Albumin 3.2 L (3.4-5.0) g/dL Progress Note: A&P Assessment and Plan (1) Acute asthmatic bronchitis: (2) Elevated hemidiaphragm: (3) Centrilobular emphysema: (4) History of tobacco abuse: (5) Obesity: Qualifiers: Body mass index: BMI 39.0-39.9 Obesity classification: adult class 2 ( BMI 35 - 39.9) Obesity type: unspecified obesity type Serious obesity comorbidity presence: unspecified whether serious comorbidity present Qualified Code(s): E66.9 - Obesity, unspecified; Z68.39 - Body mass index [BMI] 39.0-39.9, adult (6) Weakness: (7) Acute dyspnea: Plan Admission dx with : Lactic acidosis with leukocytosis with left shift consistent with acute bacterial process with failed outpatient treatment for acute asthmatic bronchitis. exam with suspected pneumonia but did not confirm on CT scan.. Has been on cefdinir. Did have a sputum culture in the past that grew yeast, has been treated with Diflucan for that. Is worse again this morning. Still work on decreasing steroids. White blood cell count is significantly elevated. Discussed possible change in antibiotics pending sputum culture results later this morning Leukocytosis with left shift secondary to acute exacerbation of asthmatic bronchitis with bacterial process.-Elevated further today-see above COPD-on CT scan, history of smoking but quit a long time ago. Some mild COPD. See pulmonology input Tremor-this is related to his breathing treatments. Tremor improved with Xopenex Hyperglycemia likely steroid-mild at this point, continue to follow, will advance diet.-Decreasing steroids Hypertension--hold medications for now-stable Coronary artery disease-no chest pain-will check BNP secondary to fluid resuscitation-stable Inpatient status statement: Patient had been treated for the last week as an outpatient for suspected pneumonia. With left upper lobe egophony on exam, failed outpatient treatment with cefdinir. With failed outpatient treatment made patient inpatient status from the beginning. His medically necessary treatment will span at least 2 midnights. Likely 3.
[2023-11-06] MEDS: FLUTICASONE PROPIONATE 50 MCG NASAL SPRAY 2 SPRAY NS ×2 (08:40→21:26)
[2023-11-06] MEDS: LISINOPRIL 20 MG TABLET 40 MG PO (08:41)
[2023-11-06] MEDS: HYDROCHLOROTHIAZIDE 25 MG TABLET 12.5 MG PO (08:41)
[2023-11-06] MEDS: MELOXICAM 7.5 MG TABLET 15 MG PO ×2 (08:41→21:31)
[2023-11-06] MEDS: PRIMIDONE 50 MG TABLET PO ×2 (08:41→21:31)
[2023-11-06] MEDS: POTASSIUM CITRATE 10 MEQ ER TABLET PO ×2 (08:41→21:31)
[2023-11-06] MEDS: SOLIFENACIN SUCCINATE 10 MG TABLET PO (08:41)
[2023-11-06] MEDS: L. ACIDOPHILUS/L.BULGARICUS 1 PACKET GRAN.PACK PO ×2 (08:41→21:31)
[2023-11-06] MEDS: ALLOPURINOL 300 MG TABLET PO (08:41)
[2023-11-06] MEDS: ASPIRIN 81 MG TAB.CHEW PO (08:41)
[2023-11-06] MEDS: TAMSULOSIN HCL 0.4 MG CAPSULE 0.400000000000000022 MG PO ×2 (08:41→21:31)
[2023-11-06] MEDS: INSULIN ASPART 300 UNIT/3 ML PEN SUBQ ×4 (08:42→21:32)
[2023-11-06] MEDS: BUDESONIDE 0.5 MG/2 ML AMPULE NEB IH ×2 (10:59→23:34)
[2023-11-06 11:12] LABS: Glucometer 173 mg/dL (74-106)
[2023-11-06] MEDS: METHYLPREDNISOLONE SOD SUCC PF 40 MG/ML VIAL IVP ×3 (11:18→23:51)
[2023-11-06] MEDS: 0.9 % SODIUM CHLORIDE 250 ML 10 ML IV (11:19)
[2023-11-06] MEDS: FLUCONAZOLE IN NACL,ISO-OSM 200 MG/100 ML PIGGYBACK 100 MG IV (13:09)
[2023-11-06 16:12] LABS: Glucometer 169 mg/dL (74-106)
[2023-11-06] MEDS: ATORVASTATIN CALCIUM 10 MG TABLET PO (21:31)
[2023-11-06] MEDS: MONTELUKAST SODIUM 10 MG TABLET PO (21:31)
[2023-11-06 21:34] LABS: Glucometer 318 mg/dL (74-106)
[2023-11-07] VITALS (14 sets, daily range): BP systolic 148–161; BP diastolic 77–94; PULSE 58–89; TEMP 36.4–36.8; O2SAT 93–97
[2023-11-07] MEDS: LEVALBUTEROL HCL 0.63 MG/3 ML VIAL.NEB 0.630000000000000004 MG IH ×4 (04:26→23:45)
[2023-11-07] MEDS: IPRATROPIUM BROMIDE 0.5 MG/2.5 ML VIAL.NEB IH ×4 (04:26→23:45)
[2023-11-07] MEDS: CEFTAZIDIME 2,000 MG in 0.9 % SODIUM CHLORIDE 100 ML 200 MG IV ×3 (04:48→20:26)
[2023-11-07 05:05] LABS: Basophils Percent Auto 0.1 % (0.2-2.0); Hematocrit 43.1 % (42.0-54.0); Hemoglobin 14.2 g/dL (14.0-18.0); Immature Granulocytes Abs Auto 0.39 10^3/uL (0.00-0.03); Immature Granulocytes Pct Auto 1.6 % (0.0-0.5); Lymphocytes Absolute Auto 1.7 10^3/uL (1.2-3.8); Lymphocytes Percent Auto 7.2 % (20.5-60.0); Mean Corpuscular HGB Conc 32.9 g/dL (29.9-35.2); Mean Corpuscular Hemoglobin 30.2 pg (25.9-34.0); Mean Corpuscular Volume 91.7 fL (80.0-94.0); Mean Platelet Volume 9.7 fL (9.5-13.5); Monocytes Absolute Auto 1.2 10^3/uL (0.3-0.8); Monocytes Percent Auto 4.8 % (1.7-12.0); Neutrophils Absolute Auto 20.7 10^3/uL (1.4-6.5); Neutrophils Percent Auto 86.3 % (43.0-75.0); Platelet Count 304 10^3/uL (150-450); Red Cell Distribution Width 15.6 % (11.0-15.0)
[2023-11-07] MEDS: CLINDAMYCIN PHOS 300 MG/50 ML PIGGYBACK 100 MG IV ×3 (05:27→17:02)
[2023-11-07 05:31] LABS: Alanine Aminotransferase 29 U/L (16-63); Albumin Level 3.1 g/dL (3.4-5.0); Alkaline Phosphatase 51 U/L (46-116); Anion Gap 15.8; Aspartate Amino Transferase 20 U/L (15-37); BUN Creatinine Ratio 30.3; Bilirubin Total 0.3 mg/dL (0.2-1.0); Calcium 8.8 mg/dL (8.5-10.1); Carbon Dioxide 25.8 mmol/L (21.0-32.0); Chloride 105 mmol/L (98-107); Estimated GFR (African America >60 (>=60); Estimated GFR (Non-African Ame >60 (>=60); Globulin 3.2 g/dL; Glucose 132 mg/dL (74-106); Potassium 3.6 mmol/L (3.5-5.1); Sodium 143 mmol/L (136-145); Total Protein 6.3 g/dL (6.4-8.2)
[2023-11-07] MEDS: METHYLPREDNISOLONE SOD SUCC PF 40 MG/ML VIAL IVP (05:47)
--- NOTE | 2023-11-07 08:17 | P.PN_ITS ---
Progress Note: Subjective Subjective Interval history: Still with wheezing this morning Exam Constitutional Vital Signs, click to edit/add: Last Vital Signs Temp 97.5 F L 11/07/23 07:26 Pulse 89 11/07/23 07:24 Resp 20 11/07/23 07:24 BP 149/77 H 11/07/23 07:24 Pulse Ox 95 11/07/23 07:24 O2 Del Method Room Air 11/07/23 07:24 Documenting provider has reviewed patient's vital signs: yes Common normals: no apparent distress Chest Common normals: inspection of chest normal Respiratory Common normals: normal respiratory effort Auscultation: rhonchi (Still have rhonchi in right lower lobe but egophony has resolved) and wheezes (Just had aerosol treatment); no egophony (Could not appreciate the change today) Cardio Common normals: no JVD, regular rate, regular rhythm and no murmurs GI Common normals: Normal to inspection, nondistended, normoactive bowel sounds present Extremity Common normals: normal to inspection (No edema) and full ROM Progress Note: Objective Labs Labs: Short CBC 11/07/23 Range/Units 03:58 WBC 24.0 H (4.0-11.0) 10^3/uL Hgb 14.2 (14.0-18.0) g/dL Hct 43.1 (42.0-54.0) % Plt Count 304 (150-450) 10^3/uL BMP 11/07/23 03:58 Sodium 143 Potassium 3.6 Chloride 105 Carbon Dioxide 25.8 BUN 27.0 H Creatinine 0.89 Glucose 132 H Calcium 8.8 Liver Function 11/07/23 Range/Units 03:58 Total Bilirubin 0.3 (0.2-1.0) mg/dL AST 20 (15-37) U/L ALT 29 (16-63) U/L Alkaline Phosphatase 51 (46-116) U/L Albumin 3.1 L (3.4-5.0) g/dL Progress Note: A&P Assessment and Plan (1) Acute asthmatic bronchitis: (2) Elevated hemidiaphragm: (3) Centrilobular emphysema: (4) History of tobacco abuse: (5) Obesity: Qualifiers: Body mass index: BMI 39.0-39.9 Obesity classification: adult class 2 (BMI 35 - 39.9) Obesity type: unspecified obesity type Serious obesity comorbidity presence: unspecified whether serious comorbidity present Qualified Code(s): E66.9 - Obesity, unspecified; Z68.39 - Body mass index [BMI] 39.0-39.9, adult (6) Weakness: (7) Acute dyspnea: Plan Admission dx with : Lactic acidosis with leukocytosis with left shift consistent with acute bacterial process with failed outpatient treatment for acute asthmatic bronchitis. exam with suspected pneumonia but did not confirm on CT scan.. Has been on cefdinir. Did have a sputum culture in the past that grew yeast, has been treated with Diflucan for that. Says about the same as yesterday, continue to wean steroids, possible discharge tomorrow, sputum culture pending Leukocytosis with left shift secondary to acute exacerbation of asthmatic bronchitis with bacterial process.-Elevated further today-see above COPD-on CT scan, history of smoking but quit a long time ago. Some mild COPD. See pulmonology input Tremor-this is related to his breathing treatments. Tremor improved with Xopenex Hyperglycemia likely steroid-mild at this point, continue to follow, will advance diet.-Decreasing steroids Hypertension--hold medications for now-stable Coronary artery disease-no chest pain-will check BNP secondary to fluid resuscitation-stable Inpatient status statement: Patient had been treated for the last week as an outpatient for suspected pneumonia. With left upper lobe egophony on exam, failed outpatient treatment with cefdinir. With failed outpatient treatment made patient inpatient status from the beginning. His medically necessary treatment will span at least 2 midnights. Likely 3.
[2023-11-07] MEDS: FLUCONAZOLE IN NACL,ISO-OSM 200 MG/100 ML PIGGYBACK 100 MG IV (09:05)
[2023-11-07] MEDS: TAMSULOSIN HCL 0.4 MG CAPSULE 0.400000000000000022 MG PO ×2 (09:06→20:25)
[2023-11-07] MEDS: HYDROCHLOROTHIAZIDE 25 MG TABLET 12.5 MG PO (09:06)
[2023-11-07] MEDS: LISINOPRIL 20 MG TABLET 40 MG PO (09:06)
[2023-11-07] MEDS: L. ACIDOPHILUS/L.BULGARICUS 1 PACKET GRAN.PACK PO ×2 (09:06→20:25)
[2023-11-07] MEDS: MELOXICAM 7.5 MG TABLET 15 MG PO ×2 (09:06→20:25)
[2023-11-07] MEDS: SOLIFENACIN SUCCINATE 10 MG TABLET PO (09:06)
[2023-11-07] MEDS: ALLOPURINOL 300 MG TABLET PO (09:06)
[2023-11-07] MEDS: ASPIRIN 81 MG TAB.CHEW PO (09:06)
[2023-11-07] MEDS: PRIMIDONE 50 MG TABLET PO ×2 (09:06→20:26)
[2023-11-07] MEDS: POTASSIUM CITRATE 10 MEQ ER TABLET PO ×2 (09:06→20:25)
[2023-11-07] MEDS: FLUTICASONE PROPIONATE 50 MCG NASAL SPRAY 2 SPRAY NS ×2 (09:07→20:25)
[2023-11-07] MEDS: HYDROCODONE/ACET 5-325 MG TABLET 1 TAB PO ×3 (09:53→21:52)
--- NOTE | 2023-11-07 10:40 | CM.NOTE ---
2nd Notice of Important Message From Medicare discussed with pt, pt denies any questions or concerns.
[2023-11-07] MEDS: BUDESONIDE 0.5 MG/2 ML AMPULE NEB IH ×2 (10:48→23:45)
[2023-11-07 11:22] LABS: Glucometer 147 mg/dL (74-106)
[2023-11-07] MEDS: INSULIN ASPART 300 UNIT/3 ML PEN SUBQ (11:28)
[2023-11-07 16:04] LABS: Glucometer 134 mg/dL (74-106)
[2023-11-07] MEDS: ATORVASTATIN CALCIUM 10 MG TABLET PO (21:37)
[2023-11-07] MEDS: MONTELUKAST SODIUM 10 MG TABLET PO (21:37)
[2023-11-07 21:40] LABS: Glucometer 188 mg/dL (74-106)
[2023-11-08] MEDS: CLINDAMYCIN PHOS 300 MG/50 ML PIGGYBACK 100 MG IV
[2023-11-08 04:37] VITALS: PULSE 56; O2SAT 96
[2023-11-08] MEDS: LEVALBUTEROL HCL 0.63 MG/3 ML VIAL.NEB 0.630000000000000004 MG IH (04:37)
[2023-11-08] MEDS: IPRATROPIUM BROMIDE 0.5 MG/2.5 ML VIAL.NEB IH (04:37)
[2023-11-08 04:56] VITALS: BP 150/77; PULSE 82; TEMP 36.6; O2SAT 94
[2023-11-08 04:57] VITALS: TEMP 36.6
[2023-11-08] MEDS: HYDROCODONE/ACET 5-325 MG TABLET 1 TAB PO (05:35)
[2023-11-08 07:46] LABS: Glucometer 131 mg/dL (74-106)
[2023-11-08 07:51] VITALS: BP 122/65; PULSE 75; TEMP 36.4; O2SAT 97
[2023-11-08] MEDS: PREDNISONE 20 MG TABLET 50 MG PO (08:20)
[2023-11-08] MEDS: L. ACIDOPHILUS/L.BULGARICUS 1 PACKET GRAN.PACK PO (08:20)
[2023-11-08] MEDS: FLUTICASONE PROPIONATE 50 MCG NASAL SPRAY 2 SPRAY NS (08:20)
[2023-11-08] MEDS: MELOXICAM 7.5 MG TABLET 15 MG PO (08:21)
[2023-11-08] MEDS: POTASSIUM CITRATE 10 MEQ ER TABLET PO (08:21)
[2023-11-08] MEDS: TAMSULOSIN HCL 0.4 MG CAPSULE 0.400000000000000022 MG PO (08:21)
[2023-11-08] MEDS: SOLIFENACIN SUCCINATE 10 MG TABLET PO (08:21)
[2023-11-08] MEDS: ASPIRIN 81 MG TAB.CHEW PO (08:21)
[2023-11-08] MEDS: LISINOPRIL 20 MG TABLET 40 MG PO (08:21)
[2023-11-08] MEDS: PRIMIDONE 50 MG TABLET PO (08:21)
[2023-11-08] MEDS: ALLOPURINOL 300 MG TABLET PO (08:21)
[2023-11-08] MEDS: HYDROCHLOROTHIAZIDE 25 MG TABLET 12.5 MG PO (08:22)
[2023-11-08 11:09] LABS: Glucometer 112 mg/dL (74-106)
--- NOTE | 2023-11-08 11:33 | P.DS_ITS ---
DS: Providers Provider Date of admission: 11/04/23 11:51 Primary care physician: Guicho Lerma MD Consults: 11/04/23 12:35 Consult to Pharmacy Routine Consulting Provider: Reason for consultation: Please [place] me when [facility] is Updated Has provider been notified: No Consult to Pulmonology Routine Consulting Provider: Lacho Coleman Reason for consultation: Recurrent pneumonia Has provider been notified: No Occupational Therapy Eval and Treat Routine Reason for consultation: Only if needed for Rehab Has provider been notified: No Physical Therapy Eval and Treat Routine Reason for consultation: Eval and Treat Has provider been notified: No DS: Diagnosis Discharge Diagnosis (1) Acute asthmatic bronchitis: (2) Elevated hemidiaphragm: (3) Centrilobular emphysema: (4) History of tobacco abuse: (5) Obesity: Qualifiers: Body mass index: BMI 39.0-39.9 Obesity classification: adult class 2 (BMI 35 - 39.9) Obesity type: unspecified obesity type Serious obesity comorbidity presence: unspecified whether serious comorbidity present Qualified Code(s): E66.9 - Obesity, unspecified; Z68.39 - Body mass index [BMI] 39.0-39.9, adult (6) Weakness: (7) Acute dyspnea: Plan On admission with: Sinus tachycardia, respiratory distress, hypotension, leukocytosis, acute kidney injury - (baseline creatinine of 2.75-0.8. Current creatinine 1.28. So 160% above baseline) -secondary to acute bilateral pneumonia, acute exacerbation of COPD resulting in sepsis. Doing much better today, continue with current treatment plan, okay to transfer to [facility], possible discharge tomorrow Iron deficiency anemia-monitor daily Hyponatremia likely secondary to dehydration-fluid resuscitation as outlined above Hyperkalemia likely secondary to the acute kidney injury-fluid resuscitation did not improve as anticipated, will give 2 doses of Kayexalate, Yesterday, much improved Hypermagnesemia-secondary to dehydration-fluid resuscitation as outlined above will likely improve Hypertension by history-currently hypotensive we will hold off on medications Chronic pain management-will hold off on medications while patient is sedated. CODE STATUS-in the past he stated being DNR-cc-A but nothing documented, discussed with patient and he would prefer to be full code Inpatient criteria: Patient with acute onset of significant hypoxia and sepsis secondary to pneumonia secondary to acute exacerbation of COPD. Medically necessary treatment will span more than 2 midnights. DS: Summary Hospital Course Hospital Course: Patient was admitted with failed outpatient treatment of possible pneumonia versus bronchitis. On exam it was sounded like he had right upper lobe pneumonia again. CT scan did not confirm. Consult with pulmonology felt it was an acute exacerbation of asthmatic bronchitis. Failed outpatient treatment as he was on cefdinir prior. He was placed on Fortaz and Levaquin. Also steroids. The following day he felt much improved. Sputum culture is pending so is kept the following day. Following day however had increasing wheezing and shortness of breath with activity. Medications were further adjusted. Still had wheezing yesterday. Today he does feel much improved. No further wheezing. No further sputum production either. At this point he is medically stable for discharge. He will see me in the office in 2 days. Medications see list. Follow-up with pulmonology within the next month. Time Spent with Patient Time attestation: Total time spent providing and/or coordinating discharge services: Exam Constitutional Vital Signs, click to edit/add: Last Vital Signs Temp 97.6 F 11/08/23 07:51 Pulse 75 11/08/23 07:51 Resp 18 11/08/23 07:51 BP 122/65 11/08/23 07:51 Pulse Ox 97 11/08/23 07:51 O2 Del Method Room Air 11/08/23 07:51 Documenting provider has reviewed patient's vital signs: yes Common normals: no apparent distress Chest Common normals: inspection of chest normal Respiratory Common normals: normal respiratory effort Auscultation: no rhonchi (Still have rhonchi in right lower lobe but egophony has resolved), no wheezes (Just had aerosol treatment) and no egophony (Could no t appreciate the change today) Cardio Common normals: no JVD, regular rate, regular rhythm and no murmurs GI Common normals: Normal to inspection, nondistended, normoactive bowel sounds present Extremity Common normals: normal to inspection (No edema) and full ROM DS: Data Data Completed and Pending Labs on day of discharge: Labs from last 24 hours 11/08/23 11/08/23 11/07/23 11:09 07:45 21:38 POC Glucose 112 H 131 H 188 H 11/07/23 16:03 POC Glucose 134 H Preliminary micro results at discharge 11/04/23 13:01 - Preliminary Blood NO GROWTH AT 36-48 HOURS. FINAL TO FOLLOW. 11/04/23 12:52 Blood Culture Result 1 - Preliminary Blood NO GROWTH AT 36-48 HOURS. FINAL TO FOLLOW. Discharge Plan Discharge Disposition: Home, Self-Care Discharge Medications: New prednisone 10 mg tablet 50 mg PO DAILY Qty: 47 0RF Rx Instructions: 5/day for 3 days. 4/day for 3 days, 3/day for 3 days, 2/day for 3 days, 1/day for 3 days, 1/2 /day for 4 days levofloxacin 750 mg tablet 750 mg PO DAILY 10 Days Qty: 10 0RF fluticasone furoate-vilanterol [Breo Ellipta] 200-25 mcg/dose blister with device 1 inh inhalation DAILY Qty: 1 11RF fluconazole [Diflucan] 200 mg tablet 200 mg PO DAILY Qty: 10 0RF Continued lisinopril 40 mg tablet 40 mg PO .QD montelukast 10 mg Tablet 10 mg PO QHS Qty: 30 11RF fluticasone propionate 50 mcg/actuation [place],Suspension 2 spray intranasal QD Qty: 16 11RF primidone 50 mg tablet 50 mg PO BID meloxicam 15 mg tablet 15 mg PO DAILY Rx Instructions: ONCE OR TWICE A DAY tamsulosin 0.4 mg capsule 0.4 mg PO BID potassium citrate 10 mEq (1,080 mg) tablet extended release 10 meq PO BID simvastatin 20 mg tablet 20 mg PO .QHS hydrochlorothiazide 12.5 mg capsule 12.5 mg PO QDAY allopurinol 300 mg tablet 300 mg PO DAILY solifenacin 10 mg tablet 10 mg PO DAILY aspirin 81 mg capsule 81 mg PO DAILY Qty: 30 11RF Discontinued clonidine HCl 0.1 mg tablet 0.1 mg PO BID Activity: resume usual activities as tolerated Diet: advance to your usual diet Print Language: Yi Patient Instructions: Pneumonia (DC) Forms: Portal Instructions Follow Up Appointments: Schedule a follow up with Dr. Lerma in 7-10 days. [phone] Discharge Date/Time: 11/08/23 11:50
--- NOTE | 2023-11-10 15:44 | CM.DCFOLLOWU ---
Person spoke with: Tom How are you feeling? Much better How is your pain? No pain Did you understand your discharge instructions? Yes Do you have any questions about your discharge instructions? No Were you given any prescriptions at discharge? Yes Were you able to get your prescriptions filled? Yes Do you understand how to take your medications as ordered? Yes Do you have any questions about your follow up appointment and do you plan to keep your follow up appointment? No already scheduled and I plan on going to appt. Is there anything else that you would like to discuss? No Questions/Comments/Concerns/Other:
== END 2023-11-08 11:50 | disposition home or self-care (01) | DRG 872 ==
PROVIDERS: Internal Medicine; Admitting Provider Family Medicine; PCP Family Medicine; Visit Provider Family Medicine
DX: A41.9 Sepsis, unspecified organism (principal); N17.9 Acute kidney failure, unspecified; E87.20 Acidosis, unspecified; J45.901 Unspecified asthma with (acute) exacerbation; R65.20 Severe sepsis without septic shock; J43.2 Centrilobular emphysema; D72.829 Elevated white blood cell count, unspecified; E11.65 Type 2 diabetes mellitus with hyperglycemia; J98.6 Disorders of diaphragm; I10 Essential (primary) hypertension; I25.10 Atherosclerotic heart disease of native coronary artery without angina pectoris; E66.9 Obesity, unspecified; R06.03 Acute respiratory distress; R25.1 Tremor, unspecified; Z68.39 Body mass index [BMI] 39.0-39.9, adult; Z87.891 Personal history of nicotine dependence; Z79.82 Long term (current) use of aspirin; Z79.899 Other long term (current) 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
CPT/HCPCS: 0202U; 36415; 71275; 80053; 82948; 83605; 83735; 83880; 84436; 84443; 84484; 85007; 85025; 85027; 85652; 86140; 87040; 87070; 87205; 94640; 94667; 94668; 94761; 96365; 96366; 96367; 96368; 96375; 96376; J2920; J2930; Q9967

== ENCOUNTER 2024-03-31 10:42 | Outpatient (OUT) | payer MEDICARE, OTHER, SELFPAY ==
--- NOTE | 2024-03-31 10:49 | XR_ITS ---
The [address] [address] Patient Name: RIZWAN LOCK MRN: [id number] date: 1950 Sex: M Assigned Patient Location: LAB Current Patient Location: LAB Accession/Order Number: [id number] Exam Date: 03/31/2024 10:51 Report Date: 03/31/2024 17:26 At the request of: MARIELLE RAMIREZ Procedure: XR chest 2V EXAM: XR chest 2V HISTORY: Acute Bronchitis J20.9 COMPARISON: 10/01/2023 TECHNIQUE: Upright PA and lateral chest x-ray FINDINGS: There is mild elevation of the right hemidiaphragm. No focal infiltrate, effusion or pneumothorax is identified. The heart is not enlarged and the vasculature is not distended. The osseous structures are grossly intact. XR/XR chest 2V IMPRESSION: No acute infiltrate or evidence of cardiac decompensation. The overall appearance of the chest is essentially unchanged. Electronically authenticated by: MAGAN ZUÑIGA Date: 03/31/2024 17:26
--- OUTSIDE RECORDS SUMMARY | 2024-03-31 10:52 | XMS_ITS | CCD ---
Author Organization [facility] CliniSymi Care Team Providers Care Budder Name Role Phone MD Marielle Lerma Primary Care Provider [phone] MD Miki Zeng Attending Provider Marielle Lerma Primary Care Physician THOR, DR SWEET Admitting Unavailable ZENG, DR SWEET Attending Unavailable HOY, DR PALOMARES Primary Care Unavailable ZENG, DR SWEET Consulting Unavailable STONEYEBDMITRIY, DR BEHZAD Cedeño Consulting Unavailable ASHLEY, DR PALOMARES Primary Care Unavailable HOY, DR PALOMARES Admitting Unavailable HOY, DR PALOMARES Attending Unavailable HOY, DR PALOMARES Consulting Unavailable STONEYEBDMITRIY, DR BEHZAD Cedeño Consulting Unavailable LATONYA AMADOR Consulting Unavailable THOR, DR SWEET Admitting Unavailable ZENG, DR SWEET Attending Unavailable HOY, DR PALOMARES Primary Care Unavailable HTOR, DR SWEET Consulting Unavailable THOR, DR SWEET Admitting Unavailable THOR, DR SWEET Attending Unavailable HOY, DR PALOMARES Primary Care Unavailable THOR, DR SWEET Consulting Unavailable THOR, DR SWEET Admitting Unavailable THOR, DR SWEET Attending Unavailable ASLHEY, DR PALOMARES Primary Care Unavailable THOR, DR SWEET Consulting Unavailable NEIDA, DR BEHZAD Cedeño Consulting Unavailable THOR, DR SWEET Admitting Unavailable ZENG, DR SWEET Attending Unavailable HOY, DR PALOMARES Primary Care Unavailable ASHLEY, DR PALOMARES Primary Care Unavailable THOR, DR SWEET Consulting Unavailable THOR, DR SWEET Admitting Unavailable THOR, DR SWEET Attending Unavailable ZIABIEL, DR BEHZAD Cedeño Consulting Unavailable ASHLEY, DR PALOMARES Admitting Unavailable HOY, DR PALOMARES Attending Unavailable HOY, DR PALOMARES Primary Care Unavailable MAYCOY, DR PALOMARES Consulting Unavailable THOR, DR SWETE Admitting Unavailable THOR, DR SWEET Attending Unavailable [...] Unavailable LUE ., NADEGE Tineo Consulting Unavailable NARDINI, BEHZAD Consulting Unavailable HOY, DR PALOMARES Primary Care Unavailable HOY, DR PALOMARES Consulting Unavailable NADERER, DR ERMA Garcia Admitting Unavailable NADERER, DR ERMA Garcia Attending Unavailable NADERER, DR ERMA Garcia Consulting Unavailable ANNITA, RUDDY Consulting Unavailable LUE ., NADEGE Tineo Consulting Unavailable MCCORNAJAEL, BEHZAD Consulting Unavailable THOR, DR SWEET Admitting Unavailable THOR, DR SWEET Attending Unavailable ASHLEY, DR PALOMARES Primary Care Unavailable THOR, DR SWEET Consulting Unavailable ASHLEY, DR PALOMARES Primary Care Unavailable RUDDY ARIZA Admitting Unavailable RUDDY ARIZA Attending Unavailable ANNITA, RUDDY Consulting Unavailable TROTTRigoberto, GIROLAELHAM Consulting Unavailable Miki ZENG Attending Unavailable Miki ZENG Attending Unavailable Allergies Allergy Classification Reported Allergen(s) Allergy Type Date of Onset Reaction(s) Facility (1 source) No Known Medication Allergies; Translations: [No Known Medication Allergies] Propensity to adverse reactions (disorder) [facility] Repository Medications Current Medications Medication Drug [...] mouth every four to six hours Hydrocodone-Acetaminophen (Smith) 5-325 mg tablet Active 1 TAB PO EVERY 4-6 HOURS 40 7 September 28, 2019 1:45pm allopurinol 300 mg oral tablet (2 sources) Xanthine Oxidase Inhibitor Start: 03-10-2023 take 1 tablet by mouth once daily allopurinol 300 mg Tab 300 mg = 1 tab(s), Oral, Daily, # 90 tab(s), Refills(s) 3, Pharmacy: [facility]/pharmacy #[id number], 180, cm, 08/19/22 9:50:00 EST, Height/Length Dosing, 136.2, kg, 08/19/22 9:50:00 EST, Weight Dosing Start Date: 03/10/23 Status: Ordered Start: 02-25-2022 allopurinol 30 0 mg Tab 150 mg = 0.5 tab(s), Oral, Daily, # 30 tab(s), Refills(s) 11, Pharmacy: [facility] #[id number], 180, cm, 02/25/22 14:22:00 [...] Ordered Start: 01-02-2018 [facility] Aspirin (Aspir-81) 81 mg Tablet,Delayed [...] Daily, # 90 cap(s), Refills(s) 3, Pharmacy: [facility]/pharmacy #[id number], 180, cm, 08/19/22 9:50:00 EST, Height/Length Dosing, 136.2, kg, 08/19/22 9:50:00 EST, Weight Dosing Start Date: 08/19/22 Status: Ordered Start: 02-25-2022 take 1 capsule by mo [facility] once daily hydrochlorothiazide 12.5 mg Cap 12.5 mg = 1 cap(s), Oral, Daily, # 30 cap(s), Refills(s) 6, Pharmacy: [id number], 180, cm, 02/25/22 14:22:00 EDT, Height/Length [...] PO Twice daily January 02, 2018 9:35am Qkeaodqp-Tlm-Ik-Lycopen-Lute in (Centrum Silver) 0.4-300-250 mg-mcg-mcg Tablet (1 source) Start: 09-02-2019 take 1 tablet by mouth once daily Alqmdhbo-Sjk-Sh-Lycopen-Lutein (Centrum Silver) 0.4-300-250 mg-mcg-mcg Tablet Active 1 [...] tab(s), Oral, BID, 60 tab(s), Refill(s) 11, [facility]/pharmacy #[id number], 180, cm, 04/11/23 11:56:00 EDT, Height/Length [...] BID, # 90 tab(s), Refills(s) 3, Pharmacy: [facility]/pharmacy #[id number], 180, cm, 08/19/22 9:50:00 EST, Height/Length Dosing, 136.2, kg, 08/19/22 9:50:00 EST, Weight Dosing Start Date: 08/19/22 Status: Ordered solifenacin succinate 10 mg oral tablet (2 sources) Cholinergic Muscarinic Antagonist Start: 04-08-2022 End: 12-23-2024 take 1 tablet by mouth once daily Vesicare 10 mg Tab 10 mg = 1 tab(s), Oral, Daily, X 90 day(s), # 90 tab(s), Refills(s) 11, Pharmacy: [facility] #[id number], 180, cm, 02/25/22 14:22:00 EDT, Height/Length Dosing, 135, kg, 02/25/22 14:22:00 EDT, Weight Dosing Start Date: 04/08/22 Stop Date: 12/23/24 Status: Ordered Start: 02-25-2022 take 1 tablet by isa th once daily Vesicare 10 mg Tab 10 mg = 1 tab(s), Oral, Daily, # 30 tab(s), Refills(s) 11, Pharmacy: [facility]/pharmacy #[id number], 180, cm, 02/25/22 14:22:00 EDT, Height/Length Dosing, 135, kg, 02/25/22 14:22:00 EDT, Weight Dosing Start Date: 02/25/22 Status: Ordered tadalafil 20 mg oral tablet (3 sources) Phosphodiesterase 5 Inhibitor Start: 10-23-2021 take 1 tablet by mouth once daily Cialis 20 mg Tab 20 mg = 1 tab(s), Oral, Daily, # 30 tab(s), Refills(s) 6, Pharmacy: [facility]/pharmacy #[id number], 180, cm, 10/22/21 14:56:00 EDT, Height/Length [...] Daily, # 90 cap(s), Refills(s) 3, Pharmacy: [facility]/pharmacy #[id number], 180, cm, 04/11/23 11:56:00 EDT, Height/Length [...] Coronary atherosclerosis; Translations: [Atherosclerotic heart disease of [place] coronary artery without angina pectoris] Onset: 11-05-2021 [...] Onset: 08-01-2022 Chronic Other 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) manager long term care (current) use of aspirin; Translations: [SKEIN WINDER CURRENT USE OF ASPIRIN] Onset: 08-01-2022 Episodic Other 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) Other manager long term care (current) 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; Translations: [OTH SENIOR CARE CURRENT DRUG THERAPY] Onset: 08-01-2022 Episodic Other [...] Onset: 02-18-2022 Episodic Other 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) penitentiary (current) use of anticoagulants; Translations: [SKEIN WINDER CURRNT USE ANTICOAGULANTS] Onset: 11-05-2021 Episodic Other [...] Urnls Dip Stick Auto w/o Microscopy POC [id number] Your Care Team Attending Physician - Miki [...] BATISTA, Miki Cedeño Where: [facility] Patient Educationon 04-11-20 23 Patient [...] ? 8 oz (237 mL) of milk, bgdndyx-piqnpoqsogxa-dcqh y milk, and calcium-fortifiedfruit juice. Calcium-fortified means [...] Spinach (cooked), rhubarb, beets, sweet potatoes, and Peruvian chard. ? Peanuts. ? Potato chips, jamaican fries, and baked potatoes with skin on. ? Nuts and nut products. ? Chocolate. ? If you regularly take a diuretic medicine, make sure to eat at least 1 or 2 servings of fruits or vegetables that are high in potassium each day. These include: ? Avocado. ? Banana. ? [place]arrant, prune, carrot, or tomato juice. ? Baked [...] fish oil, or vitamin B6. ? Take bwnj-enq-eujhucf and prescription medicines only as told by your health care provider. These include supplements. What foods should I limit? Limit your in (more content not included)... Normal [facility] Urology Office/Clinic Noteon 04-11-2023 Urology Office/Clinic [...] [facility] [address], [place] [address]- Additional Instructions: Patient Education Dietary Guidelines to Help Prevent Kidney Stone (more content not included)... Normal [facility] Comment on above: Result Comment: Elec tronically Signed By: Miki ZENG MD\.br\Date and Time Signed: 04/11/23 12:49 EDT\.br\Electronically Co-Signed By: Sherice Cloud\.br\Date and Time Co-Signed: 04/11/23 12:48 EDT RAD - Ultrasound Reporton RAD - Ultrasound Report [id number]:12 7 Normal [facility] RAD - Ultrasound Report [id number]:12 7 Normal [facility] CBC AUTO DIFFon 07-27-2022 BASO # 0.1 103/ul Normal 0.0-0.1 [facility] Comment on above: Performed By: #### U DINA, LIPID, TSH, BNP, CMP, T7 #### [facility] [address] [place] [address] Dr. Suzie Brooks Basophils/100 WBC (Bld) 0.5 % Normal 0.2-2.0 [facility] Comment on above: Performed By: #### U DINA, LIPID, TSH, BNP, CMP, T7 #### [facility] [address] [place] [address] Dr. Suzie Brooks EO # 0.4 103/ul Normal 0.0-0.7 [facility] Comment on above: Performed By: #### U DINA, LIPID, TSH, BNP, CMP, T7 #### [facility] [address] [place] [address] Dr. Suzie Brooks Eosinophils/100 WBC (Bld) 3.3 % Normal 0.9-7.0 [facility] Comment on above: Performed By: #### U DINA, LIPID, TSH, BNP, CMP, T7 #### [facility] [address] [place] [address] Dr. Suzie Brooks Erythrocyte distribution width (RBC) [Ratio] 14.6 % Normal 11.0-15.0 [facility] Comment on above: Performed By: #### U DINA, LIPID, TSH, BNP, CMP, T7 #### [facility] [address] [place] [address] Dr. Suzie Brooks Hematocrit (Bld) [Volume fraction] 42.0 % Normal 42.0-54.0 [facility] Comment on above: Performed By: #### U DINA, LIPID, TSH, BNP, CMP, T7 #### [facility] [address] [place] [address] Dr. Suzie Brooks Hemoglobin (Bld) [Mass/Vol] 14.1 g/dL Normal 14.0-18.0 [facility] Comment on above: Performed By: #### U DINA, LIPID, TSH, BNP, CMP, T7 #### [facility] [address] [place] [address] Dr. Suzie Brooks IG # 0.03 10e3/ul Normal 0.00-0.03 [facility] Comment on above: Performed By: #### U DINA, LIPID, TSH, BNP, CMP, T7 #### [facility] [address] [place] [address] Dr. Suzie Brooks IG % 0.3 % Normal 0.0-0.5 [facility] Comment on above: Performed By: #### U DINA, LIPID, TSH, BNP, CMP, T7 #### [facility] [address] [place] [address] Dr. Suzie Brooks LYMPH # 3.1 103/ul Normal 1.2-3.8 [facility] Comment on above: Performed By: #### U DINA, LIPID, TSH, BNP, CMP, T7 #### [facility] [address] [place] [address] Dr. Suzie Brooks Lymphocytes/100 WBC (Bld) 28.2 % Normal 20.5-60.0 [facility] Comment on above: Performed By: #### U DINA, LIPID, TSH, BNP, CMP, T7 #### [facility] [address] [place] [address] Dr. Suzie Brooks MANUAL DIFF REQ NO Normal [facility] Comment on above: Performed By: #### U DINA, LIPID, TSH, BNP, CMP, T7 #### [facility] [address] [place] [address] Dr. Suzie Brooks MCH (RBC) [Entitic mass] 28.5 pg Normal 25.9-34.0 [facility] Comment on above: Performed By: #### U DINA, LIPID, TSH, BNP, CMP, T7 #### [facility] [address] [place] [address] Dr. Suzie Brooks MCHC (RBC) [Mass/Vol] 33.6 g/dL Normal 29.9-35.2 [facility] Comment on above: Performed By: #### U DINA, LIPID, TSH, BNP, CMP, T7 #### [facility] [address] [address] [address] Suzie Brooks MCV (RBC) [Entitic vol] 85.0 fL Normal 80.0-94.0 [facility] Comment on above: Performed By: #### U DINA, LIPID, TSH, BNP, CMP, T7 #### [facility] [address] [place] [address] Dr. Suzie Brooks MONO # 0.8 103/ul Normal 0.3-0.8 [facility] Comment on above: Performed By: #### U DINA, LIPID, TSH, BNP, CMP, T7 #### [facility] [address] [place] [address] Dr. Suzie Brooks Monocytes/100 WBC (Bld) 7.2 % Normal 1.7-12.0 [facility] Comment on above: Performed By: #### U DINA, LIPID, TSH, BNP, CMP, T7 #### [facility] [address] [place] [address] Dr. Suzie Brooks NEUT # 6.7 103/ul Critically high 1.4-6.5 [facility] Comment on above: Performed By: #### U DINA, LIPID, TSH, BNP, CMP, T7 #### [facility] [address] [place] [address] Dr. Suzie Brooks Neutrophils/100 WBC (Bld) 60.5 % Normal 43.0-75.0 [facility] Comment on above: Performed By: #### U DINA, LIPID, TSH, BNP, CMP, T7 #### [facility] [address] [place] [address] Dr. Suzie Brooks Platelet mean volume (Bld) [Entitic vol] 9.6 fL Normal 9.5-13.5 [facility] Comment on above: Performed By: #### U DINA, LIPID, TSH, BNP, CMP, T7 #### [facility] [address] [place] [address] Dr. Suzie Brooks PLT 266 103/ul Normal 150-450 [facility] Comment on above: Performed By: #### U DINA, LIPID, TSH, BNP, CMP, T7 #### [facility] [address] [address] [address] Suzie Brooks RBC 4.94 106/ul Normal 4.70-6.10 [facility] Comment on above: Performed By: #### U DINA, LIPID, TSH, BNP, CMP, T7 #### [facility] [address] [place] [address] Dr. Suzie Brooks WBC 11.1 103/ul Critically high 4.0-11.0 [facility] Comment on above: Performed By: #### U DINA, LIPID, TSH, BNP, CMP, T7 #### [facility] [address] [place] [address] Dr. Suzie Brooks PROF 14(COMP METB)on 07-27- 022 Albumin [Mass/Vol] 3.2 g/dL Critically low 3.4-5.0 [facility] Comment on above: Performed By: #### C VDTBH #### [facility] [address] [place] [address] Dr. Suzie Brooks Albumin/Globulin [Mass ratio] 0.9 {ratio} Normal [facility] Comment on above: Performed By: #### C VDTBH #### [facility] [address] [place] [address] Dr. Suzie Brooks ALP [Catalytic activity/Vol] 60 U/L Normal 46-116 [facility] Comment on above: Performed By: #### C VDTBH #### [facility] [address] [place] [address] Dr. Suzie Brooks ALT [Catalytic activity/Vol] 27 U/L Normal 16-63 [facility] Comment on above: Performed By: #### C VDTBH #### [facility] [address] [place] [address] Dr. Suzie Brooks Anion gap [Moles/Vol] 10.4 mmol/L Normal [facility] Comment on above: Performed By: #### C VDTBH #### [facility] [address] [place] [address] Dr. Suzie Brooks AST [Catalytic activity/Vol] 23 U/L Normal 15-37 [facility] Comment on above: Performed By: #### C VDTBH #### [facility] [address] [place] [address] Dr. Suzie Brooks Bilirubin [Mass/Vol] 0.4 mg/dL Normal 0.2-1.0 [facility] Comment on above: Performed By: #### C VDTBH #### [facility] [address] [place] [address] Dr. Suzie Brooks Calcium [Mass/Vol] 8.4 mg/dL Critically low 8.5-10.1 [facility] e [facility] Comment on above: Performed By: #### C VDTBH #### [facility] [address] [place] [address] Dr. Suzie Brooks Chloride [Moles/Vol] 104 mmol/L Normal 98-107 [facility] Comment on above: Performed By: #### C VDTBH #### [facility] [address] [place] [address] Dr. Suzie Brooks CO2 [Moles/Vol] 26.1 mmol/L Normal 21.0-32.0 [facility] Comment on above: Performed By: #### C VDTBH #### [facility] [address] [place] [address] Dr. Suzie Brooks Creatinine [Mass/Vol] 0.90 mg/dL Normal 0.70-1.30 [facility] Comment on above: Performed By: #### C VDTBH #### [facility] [address] [place] [address] Dr. Suzie Brooks EGFR-AF PRYDEINIG >60 Normal >=60 [facility] Comment on above: Performed By: #### C VDTBH #### [facility] [address] [place] [address] Dr. Suzie Brooks EGFR-NON AF PRYDEINIG >60 Normal >=60 [facility] Comment on above: Performed By: #### C VDTBH #### [facility] [address] [place] [address] Dr. Suzie Brooks Globulin (S) [Mass/Vol] 3.4 g/dL Normal [facility] Comment on above: Performed By: #### C VDTBH #### [facility] [address] [place] [address] Dr. Suzie Brooks Glucose [Mass/Vol] 111 mg/dL Critically high 74-106 [facility] Comment on above: Performed By: #### C VDTBH #### [facility] [address] [place] [address] Dr. Suzie Brooks Potassium [Moles/Vol] 3.5 mmol/L Normal 3.5-5.1 [facility] Comment on above: Performed By: #### C VDTBH #### [facility] [address] [place] [address] Dr. Suzie Brooks Protein [Mass/Vol] 6.6 g/dL Normal 6.4-8.2 [facility] Comment on above: Performed By: #### C VDTBH #### [facility] [address] [place] [address] Dr. Suzie Brooks Sodium [Moles/Vol] 137 mmol/L Normal 136-145 [facility] Comment on above: Performed By: #### C VDTBH #### [facility] [address] [place] [address] Dr. Suzie Brooks Urea nitrogen [Mass/Vol] 13.0 mg/dL Normal 7.0-18.0 [facility] Comment on above: Performed By: #### C VDTBH #### [facility] [address] [place] [address] Dr. Suzie Brooks Urea nitrogen/Creatinine [Mass ratio] 14.4 mg/mg Normal [facility] Comment on above: Performed By: #### C VDTBH #### [facility] [address] [place] [address] Dr. Suzie Brooks BNPon 07-26-2022 Natriuretic peptide B (Bld) [Mass/Vol] 118.0 pg/mL Normal <=900.0 [facility] Comment on above: Performed By: #### U DINA, LIPID, TSH, BNP, CMP, T7 #### [facility] [address] [address] [address] Suzie Brooks CARDIAC MJ 3-6on 2 CK [Catalytic activity/Vol] 240 U/L Normal 39-308 [facility] Comment on above: Performed By: #### U DINA, LIPID, TSH, BNP, CMP, T7 #### [facility] [address] [address] [address] Suzie Brooks CK.MB [Mass/Vol] 3.43 ng/mL Normal <=3.60 [facility] Comment on above: Performed By: #### U DINA, LIPID, TSH, BNP, CMP, T7 #### [facility] [address] [place] [address] Dr. Suzie Brooks HSTROP 8.6 pg/mL Normal 4.0-76.1 [facility] Comment on above: Result Comment: CUT- OFF POINTS HAVE BEEN ESTABLISHED BASED ON THE FOURTH UNIVERSAL DEFINITIONS OF MYOCARDIAL INFARCTION. THE UPPER REFERENCE LIMIT (URL) OF TROPONIN, DEFINED THE 99TH PERCENTILE OF cTnI DISTRIBUTION IN A REFERENCE POPULATION, HAS BEEN CONFIRMED THE DECISION THRESHOLD FOR DC DIAGNOSIS. Performed By: #### U DINA, LIPID, TSH, BNP, CMP, T7 #### [facility] [address] [place] [address] Dr. Suzie Brooks CK [Catalytic activity/Vol] 239 U/L Normal 39-308 [facility] Comment on above: Performed By: #### M AG24 #### [facility] [address] [place] [address] Dr. Suzie Brooks CK.MB [Mass/Vol] 2.93 ng/mL Normal <=3.60 [facility] Comment on above: Performed By: #### M AG24 #### [facility] [address] [place] [address] Dr. Suzie Brooks HSTROP 10.4 pg/mL Normal 4.0-76.1 [facility] Comment on above: Result Comment: CUT- OFF POINTS HAVE BEEN ESTABLISHED BASED ON THE FOURTH UNIVERSAL DEFINITIONS OF MYOCARDIAL INFARCTION. THE UPPER REFERENCE LIMIT (URL) OF TROPONIN, DEFINED THE 99TH PERCENTILE OF cTnI DISTRIBUTION IN A REFERENCE POPULATION, HAS BEEN CONFIRMED THE DECISION THRESHOLD FOR DC DIAGNOSIS. Performed By: #### M AG24 #### [facility] [address] [address] [address] Suzie Brooks CARDIAC MJ ADMITon 022 CK [Catalytic activity/Vol] 234 U/L Normal 39-308 [facility] Comment on above: Performed By: #### O X24HR #### [facility] [address] [place] [address] Dr. Suzie Brooks CK.MB [Mass/Vol] 3.37 ng/mL Normal <=3.60 [facility] Comment on above: Performed By: #### O X24HR #### [facility] [address] [place] [address] Dr. Suzie Brooks HSTROP 9.0 pg/mL Normal 4.0-76.1 [facility] Comment on above: Result Comment: CUT- OFF POINTS HAVE BEEN ESTABLISHED BASED ON THE FOURTH UNIVERSAL DEFINITIONS OF MYOCARDIAL INFARCTION. THE UPPER REFERENCE LIMIT (URL) OF TROPONIN, DEFINED THE 99TH PERCENTILE OF cTnI DISTRIBUTION IN A REFERENCE POPULATION, HAS BEEN CONFIRMED THE DECISION THRESHOLD FOR DC DIAGNOSIS. Performed By: #### O X24HR #### [facility] [address] [place] [address] Dr. Suzie Brooks EDIE 85 ng/mL Normal 16-96 [facility] Comment on above: Performed By: #### O X24HR #### [facility] [address] [place] [address] Dr. Suzie Brooks CBC AUTO DIFFon 07-26-2022 BASO # 0.1 103/ul Normal 0.0-0.1 [facility] Comment on above: Performed By: #### U DINA, LIPID, TSH, BNP, CMP, T7 #### [facility] [address] [place] [address] Dr. Suzie Brooks Basophils/100 WBC (Bld) 0.4 % Normal 0.2-2.0 [facility] Comment on above: Performed By: #### U DINA, LIPID, TSH, BNP, CMP, T7 #### [facility] [address] [place] [address] Dr. Suzie Brooks EO # 0.3 103/ul Normal 0.0-0.7 [facility] Comment on above: Performed By: #### U DINA, LIPID, TSH, BNP, CMP, T7 #### [facility] [address] [address] [address] Suzie Brooks Eosinophils/100 WBC (Bld) 2.5 % Normal 0.9-7.0 [facility] Comment on above: Performed By: #### U DINA, LIPID, TSH, BNP, CMP, T7 #### [facility] [address] [place] [address] Dr. Suzie Brooks Erythrocyte distribution width (RBC) [Ratio] 14.4 % Normal 11.0-15.0 [facility] Comment on above: Performed By: #### U DINA, LIPID, TSH, BNP, CMP, T7 #### [facility] [address] [place] [address] Dr. Suzie Brooks Hematocrit (Bld) [Volume fraction] 46.0 % Normal 42.0-54.0 [facility] Comment on above: Performed By: #### U DINA, LIPID, TSH, BNP, CMP, T7 #### [facility] [address] [place] [address] Dr. Suzie Brooks Hemoglobin (Bld) [Mass/Vol] 15.6 g/dL Normal 14.0-18.0 [facility] Comment on above: Performed By: #### U DINA, LIPID, TSH, BNP, CMP, T7 #### [facility] [address] [place] [address] Dr. Suzie Brooks IG # 0.07 10e3/ul Critically high 0.00-0.03 [facility] Comment on above: Performed By: #### U DINA, LIPID, TSH, BNP, CMP, T7 #### [facility] [address] [place] [address] Dr. Suzie Brooks IG % 0.6 % Critically high 0.0-0.5 [facility] Comment on above: Performed By: #### U DINA, LIPID, TSH, BNP, CMP, T7 #### [facility] [address] [place] [address] Dr. Suzie Brooks LYMPH # 2.9 103/ul Normal 1.2-3.8 [facility] Comment on above: Performed By: #### U DINA, LIPID, TSH, BNP, CMP, T7 #### [facility] [address] [place] [address] Dr. Suzie Brooks Lymphocytes/100 WBC (Bld) 24.2 % Normal 20.5-60.0 [facility] Comment on above: Performed By: #### U DINA, LIPID, TSH, BNP, CMP, T7 #### [facility] [address] [place] [address] Dr. Suzei Brooks MANUAL DIFF REQ NO Normal [facility] Comment on above: Performed By: #### U DINA, LIPID, TSH, BNP, CMP, T7 #### [facility] [address] [place] [address] Dr. Suzie Brooks MCH (RBC) [Entitic mass] 28.6 pg Normal 25.9-34.0 [facility] Comment on above: Performed By: #### U DINA, LIPID, TSH, BNP, CMP, T7 #### [facility] [address] [place] [address] Dr. Suzie Brooks MCHC (RBC) [Mass/Vol] 33.9 g/dL Normal 29.9-35.2 [facility] Comment on above: Performed By: #### U DINA, LIPID, TSH, BNP, CMP, T7 #### [facility] [address] [place] [address] Dr. Suzie Brooks MCV (RBC) [Entitic vol] 84.4 fL Normal 80.0-94.0 [facility] Comment on above: Performed By: #### U DINA, LIPID, TSH, BNP, CMP, T7 #### [facility] [address] [place] [address] Dr. Suzie Brooks MONO # 0.8 103/ul Normal 0.3-0.8 [facility] Comment on above: Performed By: #### U DINA, LIPID, TSH, BNP, CMP, T7 #### [facility] [address] [place] [address] Dr. Suzie Brooks Monocytes/100 WBC (Bld) 6.7 % Normal 1.7-12.0 [facility] Comment on above: Performed By: #### U DINA, LIPID, TSH, BNP, CMP, T7 #### [facility] [address] [address] [address] Suzie Brooks NEUT # 7.8 103/ul Critically high 1.4-6.5 [facility] Comment on above: Performed By: #### U DINA, LIPID, TSH, BNP, CMP, T7 #### [facility] [address] [address] [address] Suzie Brooks Neutrophils/100 WBC (Bld) 65.6 % Normal 43.0-75.0 [facility] Comment on above: Performed By: #### U DINA, LIPID, TSH, BNP, CMP, T7 #### [facility] [address] [place] [address] Dr. Suzie Brooks Platelet mean volume (Bld) [Entitic vol] 9.7 fL Normal 9.5-13.5 [facility] Comment on above: Performed By: #### U DINA, LIPID, TSH, BNP, CMP, T7 #### [facility] [address] [place] [address] Dr. Suzie Brooks PLT 289 103/ul Normal 150-450 [facility] Comment on above: Performed By: #### U DINA, LIPID, TSH, BNP, CMP, T7 #### [facility] [address] [address] [address] Suzie Brooks RBC 5.45 106/ul Normal 4.70-6.10 [facility] Comment on above: Performed By: #### U DINA, LIPID, TSH, BNP, CMP, T7 #### [facility] [address] [address] [address] Suzie Brooks WBC 11.9 103/ul Critically high 4.0-11.0 [facility] Comment on above: Performed By: #### U DINA, LIPID, TSH, BNP, CMP, T7 #### [facility] [address] [place] [address] Dr. Suzie Brooks CTA CHEST WO W [...] BEHZAD CARRASQUILLO Date: 2022-07-26 11:59 Normal [facility] Covid-19 PCR (CVDTB)on 07-11 SARS-CoV-2 (COVID-19) RNA SUKHJINDER+probe Ql (Unsp spec) Not detected Normal NOT DETECTED [facility] Comment on above: Result Comment: When [...] for this test is supported by the [place]ider of Health and Human Service's declaration that [...] DINA, LIPID, TSH, BNP, CMP, T7 #### [facility] [address] [place], [place] [address] Dr. Suzie Brooks D-DIMERon 07-26-2022 D-DIMER 0.88 mg/L FEU Critically high <=0.59 [facility] Comment on above: Performed By: #### C VDTBH #### [facility] [address] [address] [address] Suzie Brooks D-DIMER COMMENTS SEE BELOW Normal [facility] Comment on above: Result Comment: Incr eases [...] hospitalization. Performed By: #### C VDTBH #### [facility] [address] [place], [place] [id number] Dr. Suzie Brooks ECHOCARDIO M/2D COMPLETEon 1 09-26-2021 ECHOCARDIO M/2D COMPLETE Patient: TOM APARICIO Exam Date: 07/26/2022 : 1950 Gender:M Ordering : DR MARIELLE LERMA . Admission #: [id number] Family : Order #: [id number] CLICK HERE TO VIEW EXAM ECHOCARDIOGRAM REPORT [...] Rios M.D. on 07/26/2022 at 16:22 Normal [facility] PROF 14(COMP METB)on 07-26- 022 Albumin [Mass/Vol] 3.6 g/dL Normal 3.4-5.0 [facility] Comment on above: Performed By: #### U DINA, LIPID, TSH, BNP, CMP, T7 #### [facility] [address] [place] [address] Dr. Suzie Brooks Albumin/Globulin [Mass ratio] 0.9 {ratio} Normal [facility] Comment on above: Performed By: #### U DINA, LIPID, TSH, BNP, CMP, T7 #### [facility] [address] [place] [address] Dr. Suzie Brooks ALP [Catalytic activity/Vol] 70 U/L Normal 46-116 [facility] Comment on above: Performed By: #### U DINA, LIPID, TSH, BNP, CMP, T7 #### [facility] [address] [address] [address] Suzie Brooks ALT [Catalytic activity/Vol] 30 U/L Normal 16-63 [facility] Comment on above: Performed By: #### U DINA, LIPID, TSH, BNP, CMP, T7 #### [facility] [address] [place] [address] Dr. Suzie Brooks Anion gap [Moles/Vol] 9.2 mmol/L Normal [facility] Comment on above: Performed By: #### U DINA, LIPID, TSH, BNP, CMP, T7 #### [facility] [address] [address] [address] Suzie Brooks AST [Catalytic activity/Vol] 29 U/L Normal 15-37 [facility] Comment on above: Performed By: #### U DINA, LIPID, TSH, BNP, CMP, T7 #### [facility] [address] [place] [address] Dr. Suzie Brooks Bilirubin [Mass/Vol] 0.5 mg/dL Normal 0.2-1.0 [facility] Comment on above: Performed By: #### U DINA, LIPID, TSH, BNP, CMP, T7 #### [facility] [address] [address] [address] Suzie Brooks Calcium [Mass/Vol] 8.8 mg/dL Normal 8.5-10.1 [facility] Comment on above: Performed By: #### U DINA, LIPID, TSH, BNP, CMP, T7 #### [facility] [address] [address] [address] Suzie Brooks Chloride [Moles/Vol] 102 mmol/L Normal 98-107 [facility] Comment on above: Performed By: #### U DINA, LIPID, TSH, BNP, CMP, T7 #### [facility] [address] [place] [address] Dr. Suzie Brooks CO2 [Moles/Vol] 27.2 mmol/L Normal 21.0-32.0 [facility] Comment on above: Performed By: #### U DINA, LIPID, TSH, BNP, CMP, T7 #### [facility] [address] [place] [address] Dr. Suzie Brooks Creatinine [Mass/Vol] 0.99 mg/dL Normal 0.70-1.30 [facility] Comment on above: Performed By: #### U DINA, LIPID, TSH, BNP, CMP, T7 #### [facility] [address] [place] [address] Dr. Suzie Brooks EGFR-AF PRYDEINIG >60 Normal >=60 [facility] Comment on above: Performed By: #### U DINA, LIPID, TSH, BNP, CMP, T7 #### [facility] [address] [place] [address] Dr. Suzie Brooks EGFR-NON AF PRYDEINIG >60 Normal >=60 [facility] Comment on above: Performed By: #### U DINA, LIPID, TSH, BNP, CMP, T7 #### [facility] [address] [address] [address] Suzie Brooks Globulin (S) [Mass/Vol] 3.9 g/dL Normal [facility] Comment on above: Performed By: #### U DINA, LIPID, TSH, BNP, CMP, T7 #### [facility] [address] [address] [address] Suzie Brooks Glucose [Mass/Vol] 125 mg/dL Critically high 74-106 [facility] Comment on above: Performed By: #### U DINA, LIPID, TSH, BNP, CMP, T7 #### [facility] [address] [address] [address] Suzie Brooks Potassium [Moles/Vol] 3.4 mmol/L Critically low 3.5-5.1 [facility] Comment on above: Performed By: #### U DINA, LIPID, TSH, BNP, CMP, T7 #### [facility] [address] [place] [address] Dr. Suzie Brooks Protein [Mass/Vol] 7.5 g/dL Normal 6.4-8.2 [facility] Comment on above: Performed By: #### U DINA, LIPID, TSH, BNP, CMP, T7 #### [facility] [address] [address] [address] Suzie Brooks Sodium [Moles/Vol] 135 mmol/L Critically low 136-145 [facility] Comment on above: Performed By: #### U DINA, LIPID, TSH, BNP, CMP, T7 #### [facility] [address] [place] [address] Dr. Suzie Brooks Urea nitrogen [Mass/Vol] 15.0 mg/dL Normal 7.0-18.0 [facility] Comment on above: Performed By: #### U DINA, LIPID, TSH, BNP, CMP, T7 #### [facility] [address] [place] [address] Dr. Suzie Brooks Urea nitrogen/Creatinine [Mass ratio] 15.2 mg/mg Normal [facility] Comment on above: Performed By: #### U DINA, LIPID, TSH, BNP, CMP, T7 #### [facility] [address] [place] [address] Dr. Suzie Brooks PROTIMEon 07-26-2022 INR Coag (PPP) [Relative time] 0.95 {INR} Normal [facility] Comment on above: Performed By: #### C VDTBH #### [facility] [address] [place], [place] [address] Dr. Suzie Brooks INR GUIDELINES SEE BELOW Normal [facility] Comment on above: Result Comment: TOMMY RED INR: 2.0 - 3.0 CONDITIONS NOT LISTED BELOW 2.5 - 3.5 FOR PROSTHETIC HEART VALVE REPLACEMENT 2.5 - 3.5 RECURRENT THROMBOSIS Performed By: #### C VDTBH #### [facility] [address] [address] [address] Suzie Brooks PT Coag (PPP) [Time] 10.3 s Normal 9.0-11.6 [facility] Comment on above: Performed By: #### C VDTBH #### [facility] [address] [place] [address] Dr. Suzie Brooks PTTon 07-26-2022 aPTT Coag (Bld) [Time] 28.2 s Normal 22.3-36.2 [facility] Comment on above: Performed By: #### C VDTBH #### [facility] [address] [place] [address] Dr. Suzie Brooks TSHon 07-26-2022 TSH 2.000 uIU/mL Normal 0.358-3.740 [facility] Comment on above: Performed By: #### O X24HR #### [facility] [address] [place] [address] Dr. Suzie Brooks XR CHEST 1 Von [...] BEHZAD CARRASQUILLO Date: 2022-07-26 10:51 Normal [facility] CREATININEon 07-18-2022 Creatinine [Mass/Vol] 0.93 mg/dL Normal 0.70-1.30 [facility] Comment on above: Performed By: #### U DINA, LIPID, TSH, BNP, CMP, T7 #### [facility] [address] [place], [place] [address] Dr. Suzie Brooks EGFR-AF PRYDEINIG >60 Normal >=60 [facility] Comment on above: Performed By: #### U DINA, LIPID, TSH, BNP, CMP, T7 #### [facility] [address] [place], [place] [address] Dr. Suzie Brooks EGFR-NON AF PRYDEINIG >60 Normal >=60 [facility] Comment on above: Performed By: #### U DINA, LIPID, TSH, BNP, CMP, T7 #### [facility] [address] [place], [place] [address] Dr. Suzie Brooks XR IVPon 07-18-2022 XR IVP EXAMINATION: XR IVP HISTORY: Kidney stone COMPARISON: XR KUB 11/21/2021, CT abdomen pelvis 02/16/2022 TECHNIQUE: After obtaining patient consent a application technician image was obtained followed by injection of [...] BEHZAD CARRASQUILLO Date: 2022-07-18 11:50 Normal [facility] INSULINon 05-16-2022 Insulin 59.0 uIU/mL Critically high 2.6-24.9 [facility] Comment on above: Performed By: #### U DINA, LIPID, TSH, BNP, CMP, T7 #### [facility] [address] [place] [address] Dr. Suzie Brooks BNPon 05-15-2022 Natriuretic peptide B (Bld) [Mass/Vol] 81.0 pg/mL Normal <=900.0 [facility] Comment on above: Performed By: #### U DINA, LIPID, TSH, BNP, CMP, T7 #### [facility] [address] [place] [address] Dr. Suzie Brooks CBC AUTO DIFFon 05-15-2022 BASO # 0.1 103/ul Normal 0.0-0.1 [facility] Comment on above: Performed By: #### C VDTBH #### [facility] [address] [place] [address] Dr. Suzie Brooks Basophils/100 WBC (Bld) 0.6 % Normal 0.2-2.0 [facility] Comment on above: Performed By: #### C VDTBH #### [facility] [address] [place] [address] Dr. Suzie Brooks EO # 0.3 103/ul Normal 0.0-0.7 [facility] Comment on above: Performed By: #### C VDTBH #### [facility] [address] [place] [address] Dr. Suzie Brooks Eosinophils/100 WBC (Bld) 2.9 % Normal 0.9-7.0 [facility] Comment on above: Performed By: #### C VDTBH #### [facility] [address] [place] [address] Dr. Suzie Brooks Erythrocyte distribution width (RBC) [Ratio] 14.1 % Normal 11.0-15.0 [facility] Comment on above: Performed By: #### C VDTBH #### [facility] [address] [place] [address] Dr. Suzie Brooks Hematocrit (Bld) [Volume fraction] 46.7 % Normal 42.0-54.0 [facility] Comment on above: Performed By: #### C VDTBH #### [facility] [address] [place] [address] Dr. Suzie Brooks Hemoglobin (Bld) [Mass/Vol] 15.4 g/dL Normal 14.0-18.0 [facility] Comment on above: Performed By: #### C VDTBH #### [facility] [address] [place] [address] Dr. Suzie Brooks IG # 0.03 10e3/ul Normal 0.00-0.03 [facility] Comment on above: Performed By: #### C VDTBH #### [facility] [address] [place] [address] Dr. Suzie Brooks IG % 0.3 % Normal 0.0-0.5 [facility] Comment on above: Performed By: #### C VDTBH #### [facility] [address] [place] [address] Dr. Suzie Brooks LYMPH # 2.6 103/ul Normal 1.2-3.8 [facility] Comment on above: Performed By: #### C VDTBH #### [facility] [address] [place] [address] Dr. Suzie Brooks Lymphocytes/100 WBC (Bld) 25.1 % Normal 20.5-60.0 [facility] Comment on above: Performed By: #### C VDTBH #### [facility] [address] [place] [address] Dr. Suzie Brooks MANUAL DIFF REQ NO Normal [facility] Comment on above: Performed By: #### C VDTBH #### [facility] [address] [place] [address] Dr. Suzie Brooks MCH (RBC) [Entitic mass] 28.6 pg Normal 25.9-34.0 [facility] Comment on above: Performed By: #### C VDTBH #### [facility] [address] [place] [address] Dr. Suzie Brooks MCHC (RBC) [Mass/Vol] 33.0 g/dL Normal 29.9-35.2 [facility] Comment on above: Performed By: #### C VDTBH #### [facility] [address] [place] [address] Dr. Suzie Brooks MCV (RBC) [Entitic vol] 86.8 fL Normal 80.0-94.0 [facility] Comment on above: Performed By: #### C VDTBH #### [facility] [address] [place] [address] Dr. Suzie Brooks MONO # 0.7 103/ul Normal 0.3-0.8 [facility] Comment on above: Performed By: #### C VDTBH #### [facility] [address] [place] [address] Dr. Suzie Brooks Monocytes/100 WBC (Bld) 6.8 % Normal 1.7-12.0 [facility] Comment on above: Performed By: #### C VDTBH #### [facility] [address] [place] [address] Dr. Suzie Brooks NEUT # 6.5 103/ul Normal 1.4-6.5 [facility] Comment on above: Performed By: #### C VDTBH #### [facility] [address] [place] [address] Dr. Suzie Brooks Neutrophils/100 WBC (Bld) 64.3 % Normal 43.0-75.0 [facility] Comment on above: Performed By: #### C VDTBH #### [facility] [address] [place] [address] Dr. Suzie Brooks Platelet mean volume (Bld) [Entitic vol] 9.5 fL Normal 9.5-13.5 [facility] Comment on above: Performed By: #### C VDTBH #### [facility] [address] [place] [address] Dr. Suzie Brooks PLT 273 103/ul Normal 150-450 [facility] Comment on above: Performed By: #### C VDTBH #### [facility] [address] [place] [address] Dr. Suzie Brooks RBC 5.38 106/ul Normal 4.70-6.10 [facility] Comment on above: Performed By: #### C VDTBH #### [facility] [address] [address] [address] Suzie Brooks WBC 10.2 103/ul Normal 4.0-11.0 [facility] Comment on above: Performed By: #### C VDTBH #### [facility] [address] [address] [address] Suzie Brooks FREE THYROXINE INDEX T7on FTI 2.23 Normal 1.30-4.50 [facility] Comment on above: Performed By: #### U DINA, LIPID, TSH, BNP, CMP, T7 #### [facility] [address] [place] [address] Dr. Suzie Brooks T3U 36.0 % Normal 33.0-40.0 [facility] Comment on above: Performed By: #### U DINA, LIPID, TSH, BNP, CMP, T7 #### [facility] [address] [address] [address] Suzie Brooks T4 [Mass/Vol] 6.20 ug/dL Normal 4.50-12.10 [facility] Comment on above: Performed By: #### U DINA, LIPID, TSH, BNP, CMP, T7 #### [facility] [address] [place] [address] Dr. Suzie Brooks GLYCOHEMOGLOBIN A1Con 2021 ADA RECOMMENDATION SEE BELOW Normal [facility] Comment on above: Result Comment: ADA RECOMMENDED LIMIT 4.0 - 6.0 ADA THERAPEUTIC TARGET < 7.0 ACTION SUGGESTED > 7.0 Performed By: #### U DINA, LIPID, TSH, BNP, CMP, T7 #### [facility] [address] [place] [address] Dr. Suzie Brooks Glucose [Mass/Vol] 111 mg/dL Normal [facility] Comment on above: Performed By: #### U DINA, LIPID, TSH, BNP, CMP, T7 #### [facility] [address] [place] [address] Dr. Suzie Brooks HbA1c (Bld) [Mass fraction] 5.5 % Normal 4.5-6.2 [facility] Comment on above: Performed By: #### U DINA, LIPID, TSH, BNP, CMP, T7 #### [facility] [address] [address] [address] Suzie Brooks LIPID PROFILEon 05-15-2022 CHOL-HDL RATIO NORM SEE BELOW Normal [facility] Comment on above: Result Comment: 3.3 - 4.4 LOW RISK 4.4 - 7.1 AVERAGE RISK 7.1 - 11.0 MODERATE RISK >11.0 HIGH RISK Performed By: #### U DINA, LIPID, TSH, BNP, CMP, T7 #### [facility] [address] [place] [address] Dr. Suzie Brooks Cholesterol [Mass/Vol] 136 mg/dL Normal <=200 [facility] Comment on above: Performed By: #### U DINA, LIPID, TSH, BNP, CMP, T7 #### [facility] [address] [address] [address] Suzie Brooks Cholesterol in HDL [Mass/Vol] 34 mg/dL Critically low 40-60 [facility] Comment on above: Performed By: #### U DINA, LIPID, TSH, BNP, CMP, T7 #### [facility] [address] [address] [address] Suzie Brooks Cholesterol in LDL [Mass/Vol] 49.8 mg/dL Normal [facility] Comment on above: Performed By: #### U DINA, LIPID, TSH, BNP, CMP, T7 #### [facility] [address] [place] [address] Dr. Suzie Brooks Cholesterol.total/Ch olesterol in HDL [Mass ratio] 4.0 {ratio} Normal [facility] Comment on above: Performed By: #### U DINA, LIPID, TSH, BNP, CMP, T7 #### [facility] [address] [address] [address] Suzie Brooks HDL NORMAL > or = 60 mg/dl - LO W CARDIOVASCULAR RISK <40 mg/dl - HIGH CARDIOVASCULAR RISK Normal [facility] Comment on above: Performed By: #### U DINA, LIPID, TSH, BNP, CMP, T7 #### [facility] [address] [address] [address] Suzie Brooks LDL CALC NORMAL SEE BELOW Normal [facility] Comment on above: Result Comment: <100 mg/dl OPTIMAL 100 - 129 mg/dl NEAR OR ABOVE OPTIMAL 130 - 159 mg/dl BORDERLINE HIGH 160 - 189 mg/dl HIGH >190 mg/dl VERY HIGH Performed By: #### U DINA, LIPID, TSH, BNP, CMP, T7 #### [facility] [address] [address] [address] Suzie Brooks Triglyceride [Mass/Vol] 261 mg/dL Critically high <=150 [facility] Comment on above: Performed By: #### U DINA, LIPID, TSH, BNP, CMP, T7 #### [facility] [address] [address] [address] Suzie Brooks VLDL CALC 52.2 mg/dL Normal [facility] Comment on above: Performed By: #### U DINA, LIPID, TSH, BNP, CMP, T7 #### [facility] [address] [place] [address] Dr. Suzie Brooks PROF 14(COMP METB)on 022 Albumin [Mass/Vol] 3.6 g/dL Normal 3.4-5.0 [facility] Comment on above: Performed By: #### U DINA, LIPID, TSH, BNP, CMP, T7 #### [facility] [address] [address] [address] Suzie Brooks Albumin/Globulin [Mass ratio] 0.9 {ratio} Normal [facility] Comment on above: Performed By: #### U DINA, LIPID, TSH, BNP, CMP, T7 #### [facility] [address] [address] [address] Suzie Brooks ALP [Catalytic activity/Vol] 60 U/L Normal 46-116 [facility] Comment on above: Performed By: #### U DINA, LIPID, TSH, BNP, CMP, T7 #### [facility] [address] [address] [address] Suzie Brooks ALT [Catalytic activity/Vol] 36 U/L Normal 16-63 [facility] Comment on above: Performed By: #### U DINA, LIPID, TSH, BNP, CMP, T7 #### [facility] [address] [address] [address] Suzie Brooks Anion gap [Moles/Vol] 11.7 mmol/L Normal [facility] Comment on above: Performed By: #### U DINA, LIPID, TSH, BNP, CMP, T7 #### [facility] [address] [address] [address] Suzie Brooks AST [Catalytic activity/Vol] 28 U/L Normal 15-37 [facility] Comment on above: Performed By: #### U DINA, LIPID, TSH, BNP, CMP, T7 #### [facility] [address] [place] [address] Dr. Suzie Brooks Bilirubin [Mass/Vol] 0.6 mg/dL Normal 0.2-1.0 [facility] Comment on above: Performed By: #### U DINA, LIPID, TSH, BNP, CMP, T7 #### [facility] [address] [address] [address] Suzie Brooks Calcium [Mass/Vol] 8.8 mg/dL Normal 8.5-10.1 [facility] Comment on above: Performed By: #### U DINA, LIPID, TSH, BNP, CMP, T7 #### [facility] [address] [address] [address] Suzie Brooks Chloride [Moles/Vol] 102 mmol/L Normal 98-107 [facility] Comment on above: Performed By: #### U DINA, LIPID, TSH, BNP, CMP, T7 #### [facility] [address] [address] [address] Suzie Brooks CO2 [Moles/Vol] 27.9 mmol/L Normal 21.0-32.0 [facility] Comment on above: Performed By: #### U DINA, LIPID, TSH, BNP, CMP, T7 #### [facility] [address] [address] [address] Suzie Brooks Creatinine [Mass/Vol] 0.98 mg/dL Normal 0.70-1.30 [facility] Comment on above: Performed By: #### U DINA, LIPID, TSH, BNP, CMP, T7 #### [facility] [address] [address] [address] Suzie Brooks EGFR-AF PRYDEINIG >60 Normal >=60 [facility] Comment on above: Performed By: #### U DINA, LIPID, TSH, BNP, CMP, T7 #### [facility] [address] [address] [address] Suzie Brooks EGFR-NON AF PRYDEINIG >60 Normal >=60 [facility] Comment on above: Performed By: #### U DINA, LIPID, TSH, BNP, CMP, T7 #### [facility] [address] [address] [address] Suzie Brooks Globulin (S) [Mass/Vol] 3.8 g/dL Normal [facility] Comment on above: Performed By: #### U DINA, LIPID, TSH, BNP, CMP, T7 #### [facility] [address] [place] [address] Dr. Suzie Brooks Glucose [Mass/Vol] 107 mg/dL Critically high 74-106 [facility] Comment on above: Performed By: #### U DINA, LIPID, TSH, BNP, CMP, T7 #### [facility] [address] [place] [address] Dr. Suzie Brooks Potassium [Moles/Vol] 3.6 mmol/L Normal 3.5-5.1 [facility] Comment on above: Performed By: #### U DINA, LIPID, TSH, BNP, CMP, T7 #### [facility] [address] [address] [address] Suzie Brooks Protein [Mass/Vol] 7.4 g/dL Normal 6.4-8.2 [facility] Comment on above: Performed By: #### U DINA, LIPID, TSH, BNP, CMP, T7 #### [facility] [address] [place] [address] Dr. Suzie Brooks Sodium [Moles/Vol] 138 mmol/L Normal 136-145 [facility] Comment on above: Performed By: #### U DINA, LIPID, TSH, BNP, CMP, T7 #### [facility] [address] [address] [address] Suzie Brooks Urea nitrogen [Mass/Vol] 12.0 mg/dL Normal 7.0-18.0 [facility] Comment on above: Performed By: #### U DINA, LIPID, TSH, BNP, CMP, T7 #### [facility] [address] [address] [address] Suzie Brooks Urea nitrogen/Creatinine [Mass ratio] 12.2 mg/mg Normal [facility] Comment on above: Performed By: #### U DINA, LIPID, TSH, BNP, CMP, T7 #### [facility] [address] [address] [address] Suzie Brooks TSHon 05-15-2022 TSH 2.356 uIU/mL Normal 0.358-3.740 [facility] Comment on above: Performed By: #### U DINA, LIPID, TSH, BNP, CMP, T7 #### [facility] [address] [address] [address] Suzie Brooks URIC ACID SERUMon 05-15-2022 Urate [Mass/Vol] 5.2 mg/dL Normal 3.5-7.2 [facility] Comment on above: Performed By: #### U DINA, LIPID, TSH, BNP, CMP, T7 #### [facility] [address] [address] [address] Suzie Brooks CALCULI, URINARYon 2 2,8 Dihydroxyadenine Normal [facility] Comment on above: Performed By: #### U DINA, LIPID, TSH, BNP, CMP, T7 #### [facility] [address] [address] [address] Suzie Brooks Ammonium Acid Urate Normal [facility] Comment on above: Performed By: #### U DINA, LIPID, TSH, BNP, CMP, T7 #### [facility] [address] [address] [address] Suzie Brooks Bilirubin Ql (U) Normal [facility] Comment on above: Performed By: #### U DINA, LIPID, TSH, BNP, CMP, T7 #### [facility] [address] [address] [address] Suzie Brooks Ca Oxalate Dihydrate Normal [facility] Comment on above: Performed By: #### U DINA, LIPID, TSH, BNP, CMP, T7 #### [facility] [address] [address] [address] Suzie Brooks CaHPO4 (Brushite) Normal [facility] Comment on above: Performed By: #### U DINA, LIPID, TSH, BNP, CMP, T7 #### [facility] [address] [address] [address] Suzie Brooks Calcium Bilirubinate Normal [facility] Comment on above: Performed By: #### U DINA, LIPID, TSH, BNP, CMP, T7 #### [facility] [address] [address] [address] Suzie Brooks Calcium Carbonate Normal [facility] Comment on above: Performed By: #### U DINA, LIPID, TSH, BNP, CMP, T7 #### [facility] [address] [address] [address] Suzie Brooks Calcium Oxalate Monohydrate 70 % Normal [facility] Comment on above: Performed By: #### U DINA, LIPID, TSH, BNP, CMP, T7 #### [facility] [address] [address] [address] Suzie Brooks Calcium Palmitate Normal [facility] Comment on above: Performed By: #### U DINA, LIPID, TSH, BNP, CMP, T7 #### [facility] [address] [address] [address] Suzie Brooks Calcium Phosphate Normal [facility] Comment on above: Performed By: #### U DINA, LIPID, TSH, BNP, CMP, T7 #### [facility] [address] [address] [address] Suzie Brooks Calcium Stearate Normal [facility] Comment on above: Performed By: #### U DINA, LIPID, TSH, BNP, CMP, T7 #### [facility] [address] [address] [address] Suzie Brooks Carbonate Apatite Normal [facility] Comment on above: Performed By: #### U DINA, LIPID, TSH, BNP, CMP, T7 #### [facility] [address] [address] [address] Suzie Brooks Cellular Material [facility] Comment on above: Performed By: #### U DINA, LIPID, TSH, BNP, CMP, T7 #### [facility] [address] [id number] Suzie Brooks Cholesterol [facility] Comment on above: Performed By: #### U DINA, LIPID, TSH, BNP, CMP, T7 #### [facility] [address] [id number] Suzie Brooks Color (U) Brown [facility] Comment on above: Performed By: #### U DINA, LIPID, TSH, BNP, CMP, T7 #### [facility] [address] [address] [address] Suzie Brooks Comment [facility] Comment on above: Performed By: #### U DINA, LIPID, TSH, BNP, CMP, T7 #### [facility] [id number] Suzie Brooks Comment Comment [facility] Comment on above: Result Comment: Calc ulus received in liquid. Wet calculi must be dried before analysis, which delays reporting of results. Leaving calculi in liquid (such as water, saline, blood, urine) may lead to changes in composition. Performed By: #### U DINA, LIPID, TSH, BNP, CMP, T7 #### [facility] [id number] Suzie Brooks Comment: Comment [facility] Comment on above: Result Comment: Phys rosaan questions regarding Calculi Analysis contact [facility] at: [phone]. Performed By: #### U DINA, LIPID, TSH, BNP, CMP, T7 #### [facility] [id number] Suzie Brooks Composition Comment [facility] Comment on above: Result Comment: Perc entage (Represents the % composition) Performed By: #### U DINA, LIPID, TSH, BNP, CMP, T7 #### [facility] [address] [address] [address] Suzie Brooks Cystine Normal [facility] Comment on above: Performed By: #### U DINA, LIPID, TSH, BNP, CMP, T7 #### [facility] [address] [address] [address] Suzie Brooks Disclaimer: Comment Normal [facility] Comment on above: Result Comment: This test was developed and its performance characteristics determined by [facility]. It has not been cleared or approved by the Food and Drug Administration. Performed By: #### U DINA, LIPID, TSH, BNP, CMP, T7 #### [facility] [address] [address] [address] Suzie Brooks Dried Blood [facility] Comment on above: Performed By: #### U DINA, LIPID, TSH, BNP, CMP, T7 #### [facility] [address] [address] [address] Suzie Brooks Drug or Metabolite Normal [facility] Comment on above: Performed By: #### U DINA, LIPID, TSH, BNP, CMP, T7 #### [facility] [address] [address] [address] Suzie Brooks Hydroxyapatite [facility] Comment on above: Performed By: #### U DINA, LIPID, TSH, BNP, CMP, T7 #### [facility] [address] [address] [address] Suzie Brooks Mg NH4 PO4 (Struvite) [facility] Comment on above: Performed By: #### U DINA, LIPID, TSH, BNP, CMP, T7 #### [facility] [address] [address] [address] Suzie Brooks MgHPO4 (Newberyite) [facility] Comment on above: Performed By: #### U DINA, LIPID, TSH, BNP, CMP, T7 #### [facility] [address] [address] [address] Suzie Brooks Other component(s) Normal [facility] Comment on above: Performed By: #### U DINA, LIPID, TSH, BNP, CMP, T7 #### [facility] [address] [address] [address] Suzie Brooks PDF . Normal [facility] Comment on above: Performed By: #### U DINA, LIPID, TSH, BNP, CMP, T7 #### [facility] [address] [address] [address] Suzie Brooks Photo Comment Normal [facility] Comment on above: Result Comment: Luis prasad will follow under a separate cover Performed By: #### U DINA, LIPID, TSH, BNP, CMP, T7 #### [facility] [address] [address] [address] Suzie Brooks Please note: Comment [facility] Comment on above: Result Comment: Calc shamika report will follow via computer, mail or fish egg packer delivery. Performed By: #### U DINA, LIPID, TSH, BNP, CMP, T7 #### [facility] [address] [address] [address] Suzie Brooks Size 6x4 [facility] Comment on above: Result Comment: Mult iple pieces received. Dimensions of the largest piece reported. Performed By: #### U DINA, LIPID, TSH, BNP, CMP, T7 #### [facility] [address] [address] [address] Suzie Brooks Sodium Acid Urate Normal [facility] Comment on above: Performed By: #### U DINA, LIPID, TSH, BNP, CMP, T7 #### [facility] [address] [address] [address] Suzie Brooks Source Comment [facility] Comment on above: Result Comment: Not provided Performed By: #### U DINA, LIPID, TSH, BNP, CMP, T7 #### [facility] [address] [address] [address] Suzie Brooks Triamterene [facility] Comment on above: Performed By: #### U DINA, LIPID, TSH, BNP, CMP, T7 #### [facility] [address] [address] [address] Suzie Brooks Uric Acid 30 % [facility] Comment on above: Performed By: #### U DINA, LIPID, TSH, BNP, CMP, T7 #### [facility] [address] [address] [address] Suzie Brooks Uric Acid Dihydrate Normal [facility] Comment on above: Performed By: #### U DINA, LIPID, TSH, BNP, CMP, T7 #### [facility] [address] [address] [address] Suzie Brooks Weight 99 mg Normal [facility] Comment on above: Performed By: #### U DINA, LIPID, TSH, BNP, CMP, T7 #### [facility] [address] [address] [address] Suzie Brooks Xanthine [facility] Comment on above: Performed By: #### U DINA, LIPID, TSH, BNP, CMP, T7 #### [facility] [address] [place] [address] Dr. Suzie Brooks CBC AUTO DIFFon 02-18-2022 BASO # 0.0 103/ul Normal 0.0-0.1 [facility] Comment on above: Performed By: #### U DINA, LIPID, TSH, BNP, CMP, T7 #### [facility] [address] [place] [address] Dr. Suzie Brooks Basophils/100 WBC (Bld) 0.3 % Normal 0.2-2.0 [facility] Comment on above: Performed By: #### U DINA, LIPID, TSH, BNP, CMP, T7 #### [facility] [address] [address] [address] Suzie Brooks EO # 0.3 103/ul Normal 0.0-0.7 [facility] Comment on above: Performed By: #### U DINA, LIPID, TSH, BNP, CMP, T7 #### [facility] [address] [place] [address] Dr. Suzie Brooks Eosinophils/100 WBC (Bld) 2.3 % Normal 0.9-7.0 [facility] Comment on above: Performed By: #### U DINA, LIPID, TSH, BNP, CMP, T7 #### [facility] [address] [place] [address] Dr. Suzie Brooks Erythrocyte distribution width (RBC) [Ratio] 14.2 % Normal 11.0-15.0 [facility] Comment on above: Performed By: #### U DINA, LIPID, TSH, BNP, CMP, T7 #### [facility] [address] [place] [address] Dr. Suzie Brooks Hematocrit (Bld) [Volume fraction] 41.3 % Critically low 42.0-54.0 [facility] Comment on above: Performed By: #### U DINA, LIPID, TSH, BNP, CMP, T7 #### [facility] [address] [place] [address] Dr. Suzie Brooks Hemoglobin (Bld) [Mass/Vol] 13.4 g/dL Critically low 14.0-18.0 [facility] Comment on above: Performed By: #### U DINA, LIPID, TSH, BNP, CMP, T7 #### [facility] [address] [place] [address] Dr. Suzie Brooks IG # 0.03 10e3/ul Normal 0.00-0.03 [facility] Comment on above: Performed By: #### U DINA, LIPID, TSH, BNP, CMP, T7 #### [facility] [address] [place] [address] Dr. Suzie Brooks IG % 0.3 % Normal 0.0-0.5 [facility] Comment on above: Performed By: #### U DINA, LIPID, TSH, BNP, CMP, T7 #### [facility] [address] [place] [address] Dr. Suzie Brooks LYMPH # 2.0 103/ul Normal 1.2-3.8 [facility] Comment on above: Performed By: #### U DINA, LIPID, TSH, BNP, CMP, T7 #### [facility] [address] [place] [address] Dr. Suzie Brooks Lymphocytes/100 WBC (Bld) 18.0 % Critically low 20.5-60.0 [facility] Comment on above: Performed By: #### U DINA, LIPID, TSH, BNP, CMP, T7 #### [facility] [address] [place] [address] Dr. Suzie Brooks MANUAL DIFF REQ NO Normal [facility] Comment on above: Performed By: #### U DINA, LIPID, TSH, BNP, CMP, T7 #### [facility] [address] [place] [address] Dr. Suzie Brooks MCH (RBC) [Entitic mass] 28.8 pg Normal 25.9-34.0 [facility] Comment on above: Performed By: #### U DINA, LIPID, TSH, BNP, CMP, T7 #### [facility] [address] [place] [address] Dr. Suzie Brooks MCHC (RBC) [Mass/Vol] 32.4 g/dL Normal 29.9-35.2 [facility] Comment on above: Performed By: #### U DINA, LIPID, TSH, BNP, CMP, T7 #### [facility] [address] [place] [address] Dr. Suzie Brooks MCV (RBC) [Entitic vol] 88.6 fL Normal 80.0-94.0 [facility] Comment on above: Performed By: #### U DINA, LIPID, TSH, BNP, CMP, T7 #### [facility] [address] [place] [address] Dr. Suzie Brooks MONO # 1.0 103/ul Critically high 0.3-0.8 [facility] Comment on above: Performed By: #### U DINA, LIPID, TSH, BNP, CMP, T7 #### [facility] [address] [place] [address] Dr. Suzie Brooks Monocytes/100 WBC (Bld) 9.2 % Normal 1.7-12.0 [facility] Comment on above: Performed By: #### U DINA, LIPID, TSH, BNP, CMP, T7 #### [facility] [address] [place] [address] Dr. Suzie Brooks NEUT # 7.9 103/ul Critically high 1.4-6.5 [facility] Comment on above: Performed By: #### U DINA, LIPID, TSH, BNP, CMP, T7 #### [facility] [address] [address] [address] Suzie Brooks Neutrophils/100 WBC (Bld) 69.9 % Normal 43.0-75.0 [facility] Comment on above: Performed By: #### U DINA, LIPID, TSH, BNP, CMP, T7 #### [facility] [address] [place] [address] Dr. Suzie Brooks Platelet mean volume (Bld) [Entitic vol] 9.6 fL Normal 9.5-13.5 [facility] Comment on above: Performed By: #### U DINA, LIPID, TSH, BNP, CMP, T7 #### [facility] [address] [place] [address] Dr. Suzie Brooks PLT 218 103/ul Normal 150-450 [facility] Comment on above: Performed By: #### U DINA, LIPID, TSH, BNP, CMP, T7 #### [facility] [address] [place] [address] Dr. Suzie Brooks RBC 4.66 106/ul Critically low 4.70-6.10 [facility] Comment on above: Performed By: #### U DINA, LIPID, TSH, BNP, CMP, T7 #### [facility] [address] [place] [address] Dr. Suzie Brooks WBC 11.3 103/ul Critically high 4.0-11.0 [facility] Comment on above: Performed By: #### U DINA, LIPID, TSH, BNP, CMP, T7 #### [facility] [address] [place] [address] Dr. Suzie Brooks CULTURE URINEon 02-18-2022 CULTURE URINE Culture Observations : NO GROWTH. Normal [facility] Comment on above: Performed By: #### M [id number] #### [facility] [address] [place] [address] Dr. Suzie Brooks [facility]08 SARS-CoV-2 (COVID-19) RNA SUKHJINDER+probe Ql (Unsp spec) Not detected Normal NOT DETECTED [facility] Comment on above: Result Comment: When [...] for this test is supported by the [place] [employer] and [employer] Service's declaration that [...] used). Performed By: #### C VDTB #### [facility] [address] [place] [address] Dr. Suzie Brooks PROF 14(COMP METB)on 022 Albumin [Mass/Vol] 3.0 g/dL Critically low 3.4-5.0 [facility] Comment on above: Performed By: #### O [id number] #### [facility] [address] [place] [address] Dr. Suzie Brooks Albumin/Globulin [Mass ratio] 0.9 {ratio} Normal [facility] Comment on above: Performed By: #### O [id number] #### [facility] [address] [place] [address] Dr. Suzie Brooks ALP [Catalytic activity/Vol] 49 U/L Normal 46-116 [facility] Comment on above: Performed By: #### O [id number] #### [facility] [address] [place] [address] Dr. Suzie Brooks ALT [Catalytic activity/Vol] 35 U/L Normal 16-63 [facility] Comment on above: Performed By: #### O [id number] #### [facility] [address] [place] [address] Dr. Suzie Brooks Anion gap [Moles/Vol] 11.8 mmol/L Normal [facility] Comment on above: Performed By: #### O X24HR #### [facility] [address] [address] [address] Suzie Brooks AST [Catalytic activity/Vol] 27 U/L Normal 15-37 [facility] Comment on above: Performed By: #### O X24HR #### [facility] [address] [address] [address] Suzie Brooks Bilirubin [Mass/Vol] 0.4 mg/dL Normal 0.2-1.0 [facility] Comment on above: Performed By: #### O X24HR #### [facility] [address] [address] [address] Suzie Brooks Calcium [Mass/Vol] 7.6 mg/dL Critically low 8.5-10.1 [facility] Comment on above: Performed By: #### O X24HR #### [facility] [address] [place] [address] Dr. Suzie Brooks Chloride [Moles/Vol] 106 mmol/L Normal 98-107 [facility] Comment on above: Performed By: #### O X24HR #### [facility] [address] [address] [address] Suzie Brooks CO2 [Moles/Vol] 26.2 mmol/L Normal 21.0-32.0 [facility] Comment on above: Performed By: #### O X24HR #### [facility] [address] [place] [address] Dr. Suzie Brooks Creatinine [Mass/Vol] 1.08 mg/dL Normal 0.70-1.30 [facility] Comment on above: Performed By: #### O [id number] #### [facility] [address] [place] [address] Dr. Suzie Brooks EGFR-AF PRYDEINIG >60 Normal >=60 [facility] Comment on above: Performed By: #### O [id number] #### [facility] [address] [address] [address] Suzie Brooks EGFR-NON AF PRYDEINIG >60 Normal >=60 [facility] Comment on above: Performed By: #### O [id number] #### [facility] [address] [address] [address] Suzie Brooks Globulin (S) [Mass/Vol] 3.2 g/dL Normal [facility] Comment on above: Performed By: #### O X24HR #### [facility] [address] [address] [address] Suzie Brooks Glucose [Mass/Vol] 107 mg/dL Critically high 74-106 [facility] Comment on above: Performed By: #### O X24HR #### [facility] [address] [address] [address] Suzie Brooks Potassium [Moles/Vol] 4.0 mmol/L Normal 3.5-5.1 [facility] Comment on above: Performed By: #### O X24HR #### [facility] [address] [place] [address] Dr. Suzie Brooks Protein [Mass/Vol] 6.2 g/dL Critically low 6.4-8.2 [facility] Comment on above: Performed By: #### O [id number] #### [facility] [address] [address] [address] Suzie Brooks Sodium [Moles/Vol] 140 mmol/L Normal 136-145 [facility] Comment on above: Performed By: #### O X24HR #### [facility] [address] [place] [address] Dr. Suzie Brooks Urea nitrogen [Mass/Vol] 14.0 mg/dL Normal 7.0-18.0 [facility] Comment on above: Performed By: #### O X24HR #### [facility] [address] [place] [address] Dr. Suzie Brooks Urea nitrogen/Creatinine [Mass ratio] 13.0 mg/mg Normal [facility] Comment on above: Performed By: #### O [id number] #### [facility] [address] [address] [address] Suzie Brooks CBC AUTO DIFFon 02-17-2022 BASO # 0.1 103/ul Normal 0.0-0.1 [facility] Comment on above: Performed By: #### M AG24 #### [facility] [address] [address] [address] Suzie Brooks Basophils/100 WBC (Bld) 0.4 % Normal 0.2-2.0 [facility] Comment on above: Performed By: #### M AG24 #### [facility] [address] [address] [address] Suzie Brooks EO # 0.3 103/ul Normal 0.0-0.7 [facility] Comment on above: Performed By: #### M AG24 #### [facility] [address] [place] [address] Dr. Suzie Brooks Eosinophils/100 WBC (Bld) 2.3 % Normal 0.9-7.0 [facility] Comment on above: Performed By: #### M AG24 #### [facility] [address] [place] [address] Dr. Suzie Brooks Erythrocyte distribution width (RBC) [Ratio] 13.8 % Normal 11.0-15.0 [facility] Comment on above: Performed By: #### M AG24 #### [facility] [address] [place] [address] Dr. Suzie Brooks Hematocrit (Bld) [Volume fraction] 45.2 % Normal 42.0-54.0 [facility] Comment on above: Performed By: #### M AG24 #### [facility] [address] [place] [address] Dr. Suzie Brooks Hemoglobin (Bld) [Mass/Vol] 14.9 g/dL Normal 14.0-18.0 [facility] Comment on above: Performed By: #### M AG24 #### [facility] [address] [place] [address] Dr. Suzie Brooks IG # 0.05 10e3/ul Critically high 0.00-0.03 [facility] Comment on above: Performed By: #### M AG24 #### [facility] [address] [place] [address] Dr. Suzie Brooks IG % 0.4 % Normal 0.0-0.5 [facility] Comment on above: Performed By: #### M AG24 #### [facility] [address] [address] [address] Suzie Brooks LYMPH # 2.5 103/ul Normal 1.2-3.8 [facility] Comment on above: Performed By: #### M AG24 #### [facility] [address] [address] [address] Suzie Brooks Lymphocytes/100 WBC (Bld) 17.3 % Critically low 20.5-60.0 [facility] Comment on above: Performed By: #### M AG24 #### [facility] [address] [place] [address] Dr. Suzie Brooks MANUAL DIFF REQ NO Normal [facility] Comment on above: Performed By: #### M AG24 #### [facility] [address] [place] [address] Dr. Suzie Brooks MCH (RBC) [Entitic mass] 28.7 pg Normal 25.9-34.0 [facility] Comment on above: Performed By: #### M AG24 #### [facility] [address] [place] [address] Dr. Suzie Brooks MCHC (RBC) [Mass/Vol] 33.0 g/dL Normal 29.9-35.2 [facility] Comment on above: Performed By: #### M AG24 #### [facility] [address] [place] [address] Dr. Suzie Brooks MCV (RBC) [Entitic vol] 87.1 fL Normal 80.0-94.0 [facility] Comment on above: Performed By: #### M AG24 #### [facility] [address] [place] [address] Dr. Suzie Brooks MONO # 1.0 103/ul Critically high 0.3-0.8 [facility] Comment on above: Performed By: #### M AG24 #### [facility] [address] [place] [address] Dr. Suzie Brooks Monocytes/100 WBC (Bld) 6.8 % Normal 1.7-12.0 [facility] Comment on above: Performed By: #### M AG24 #### [facility] [address] [place] [address] Dr. Suzie Brooks NEUT # 10.3 103/ul Critically high 1.4-6.5 [facility] Comment on above: Performed By: #### M AG24 #### [facility] [address] [place] [address] Dr. Suzie Brooks Neutrophils/100 WBC (Bld) 72.8 % Normal 43.0-75.0 [facility] Comment on above: Performed By: #### M AG24 #### [facility] [address] [place] [address] Dr. Suzie Brooks Platelet mean volume (Bld) [Entitic vol] 9.7 fL Normal 9.5-13.5 [facility] Comment on above: Performed By: #### M AG24 #### [facility] [address] [place] [address] Dr. Suzie Brooks PLT 253 103/ul Normal 150-450 [facility] Comment on above: Performed By: #### M AG24 #### [facility] [address] [place] [address] Dr. Suzie Brooks RBC 5.19 106/ul Normal 4.70-6.10 [facility] Comment on above: Performed By: #### M AG24 #### [facility] [address] [place] [address] Dr. Suzie Brooks WBC 14.2 103/ul Critically high 4.0-11.0 [facility] Comment on above: Performed By: #### M AG24 #### [facility] [address] [place] [address] Dr. Suzie Brooks CULTURE BLOODon 02-17-2022 Microscopic examination of blood, culture Culture Observations: NO GROWTH AT 5 DAYS. Normal [facility] Comment on above: Performed By: #### M AG24 #### [facility] [address] [place] [address] Dr. Suzie Brooks Microscopic examination of blood, culture Culture Observations: NO GROWTH AT 5 DAYS. Normal [facility] Comment on above: Performed By: #### M AG24 #### [facility] [address] [place] [address] Dr. Suzie Brooks ER URINE PROFILEon 2 Bilirubin Ql (U) Negative Normal NEGATIVE [facility] Comment on above: Performed By: #### E RUR #### [facility] [address] [place] [address] Dr. Suzie Brooks Clarity (U) CLEAR Normal CLEAR [facility] Comment on above: Performed By: #### E RUR #### [facility] [address] [place] [address] Dr. Suzie Brooks Color (U) DK. YELLOW Normal YELLOW [facility] Comment on above: Performed By: #### E RUR #### [facility] [address] [place] [address] Dr. Suzie Brooks ERUAHDaniele A micrscopic examina tion will be performed if indicated. Normal [facility] Comment on above: Performed By: #### E RUR #### [facility] [address] [place] [address] Dr. Suzie Brooks Glucose Ql (U) Negative Normal NEGATIVE [facility] Comment on above: Performed By: #### E RUR #### [facility] [address] [place] [address] Dr. Suzie Brooks Hemoglobin Ql (U) Negative Normal NEGATIVE [facility] Comment on above: Performed By: #### E RUR #### [facility] [address] [place] [address] Dr. Suzie Brooks Ketones Ql (U) Negative Normal NEGATIVE [facility] Comment on above: Performed By: #### E RUR #### [facility] [address] [place] [address] Dr. Suzie Brooks LEUKOCYTES Negative Normal NEGATIVE [facility] Comment on above: Performed By: #### E RUR #### [facility] [address] [place] [address] Dr. Suzie Brooks Nitrite Ql (U) Negative Normal NEGATIVE [facility] Comment on above: Performed By: #### E RUR #### [facility] [address] [place] [address] Dr. Suzie Brooks pH (U) 5.0 [pH] Normal 5-9 [facility] Comment on above: Performed By: #### E RUR #### [facility] [address] [place] [address] Dr. Suzie Brooks SPEC GRAVITY >=1.030 Abnormal 1.005-<=1.02 5 [facility] Comment on above: Performed By: #### E RUR #### [facility] [address] [place] [address] Dr. Suzie Brooks UA PROTEIN Negative Normal NEGATIVE/ TRACE [facility] Comment on above: Performed By: #### E RUR #### [facility] [address] [place] [address] Dr. Suzie Brooks UR MICRO IND NOT INDICATED Normal [facility] Comment on above: Performed By: #### E RUR #### [facility] [address] [place] [address] Dr. Suzie Brooks Urobilinogen Qn (U) 0.2 {Behzad'U}/dL Normal 0.2 - 1. 0 [facility] Comment on above: Performed By: #### E RUR #### [facility] [address] [place] [address] Dr. Suzie Brooks LACTATE/LACTIC ACIDon 2021 Lactate [Moles/Vol] 1.4 mmol/L Normal 0.4-1.9 [facility] Comment on above: Performed By: #### U DINA, LIPID, TSH, BNP, CMP, T7 #### [facility] [address] [place] [address] Dr. Suzie Brooks PROF CHEM 8 (BAS METB)on Anion gap [Moles/Vol] 12.2 mmol/L Normal [facility] Comment on above: Performed By: #### U DINA, LIPID, TSH, BNP, CMP, T7 #### [facility] [address] [place] [address] Dr. Suzie Brooks Calcium [Mass/Vol] 8.1 mg/dL Critically low 8.5-10.1 [facility] Comment on above: Performed By: #### U DINA, LIPID, TSH, BNP, CMP, T7 #### [facility] [address] [address] [address] Suzie Brooks Chloride [Moles/Vol] 103 mmol/L Normal 98-107 [facility] Comment on above: Performed By: #### U DINA, LIPID, TSH, BNP, CMP, T7 #### [facility] [address] [address] [address] Suzie Brooks CO2 [Moles/Vol] 26.1 mmol/L Normal 21.0-32.0 [facility] Comment on above: Performed By: #### U DINA, LIPID, TSH, BNP, CMP, T7 #### [facility] [address] [address] [address] Suzie Brooks Creatinine [Mass/Vol] 1.06 mg/dL Normal 0.70-1.30 [facility] Comment on above: Performed By: #### U DINA, LIPID, TSH, BNP, CMP, T7 #### [facility] [address] [address] [address] Suzie Brooks EGFR-AF PRYDEINIG >60 Normal >=60 [facility] Comment on above: Performed By: #### U DINA, LIPID, TSH, BNP, CMP, T7 #### [facility] [address] [address] [address] Suzie Brooks EGFR-NON AF PRYDEINIG >60 Normal >=60 [facility] Comment on above: Performed By: #### U DINA, LIPID, TSH, BNP, CMP, T7 #### [facility] [address] [address] [address] Suzie Brooks Glucose [Mass/Vol] 138 mg/dL Critically high 74-106 [facility] Comment on above: Performed By: #### U DINA, LIPID, TSH, BNP, CMP, T7 #### [facility] [address] [address] [address] Suzie Brooks Potassium [Moles/Vol] 4.3 mmol/L Normal 3.5-5.1 [facility] Comment on above: Performed By: #### U DINA, LIPID, TSH, BNP, CMP, T7 #### [facility] [address] [place] [address] Dr. Suzie Brooks Sodium [Moles/Vol] 137 mmol/L Normal 136-145 [facility] Comment on above: Performed By: #### U DINA, LIPID, TSH, BNP, CMP, T7 #### [facility] [address] [place] [address] Dr. Suzie Brooks Urea nitrogen [Mass/Vol] 14.0 mg/dL Normal 7.0-18.0 [facility] Comment on above: Performed By: #### U DINA, LIPID, TSH, BNP, CMP, T7 #### [facility] [address] [place] [address] Dr. Suzie Brooks Urea nitrogen/Creatinine [Mass ratio] 13.2 mg/mg Normal [facility] Comment on above: Performed By: #### U DINA, LIPID, TSH, BNP, CMP, T7 #### [facility] [address] [place] [address] Dr. Suzie Brooks TROPONIN, HIGH SENSITIVITYon 02-17-2022 HSTROP 8.4 pg/mL Normal 4.0-76.1 [facility] Comment on above: Result Comment: CUT- OFF POINTS HAVE BEEN ESTABLISHED BASED ON THE FOURTH UNIVERSAL DEFINITIONS OF MYOCARDIAL INFARCTION. THE UPPER REFERENCE LIMIT (URL) OF TROPONIN, DEFINED THE 99TH PERCENTILE OF cTnI DISTRIBUTION IN A REFERENCE POPULATION, HAS BEEN CONFIRMED THE DECISION THRESHOLD FOR DC DIAGNOSIS. Performed By: #### U DINA, LIPID, TSH, BNP, CMP, T7 #### [facility] [address] [place] [address] Dr. Suzie Brooks CBC AUTO DIFFon 02-16-2022 BASO # 0.1 103/ul Normal 0.0-0.1 [facility] Comment on above: Performed By: #### U DINA, LIPID, TSH, BNP, CMP, T7 #### [facility] [address] [place] [address] Dr. Suzie Brooks Basophils/100 WBC (Bld) 0.4 % Normal 0.2-2.0 [facility] Comment on above: Performed By: #### U DINA, LIPID, TSH, BNP, CMP, T7 #### [facility] [address] [place] [address] Dr. Suzie Brooks EO # 0.3 103/ul Normal 0.0-0.7 [facility] Comment on above: Performed By: #### U DINA, LIPID, TSH, BNP, CMP, T7 #### [facility] [address] [place] [address] Dr. Suzie Brooks Eosinophils/100 WBC (Bld) 2.5 % Normal 0.9-7.0 [facility] Comment on above: Performed By: #### U DINA, LIPID, TSH, BNP, CMP, T7 #### [facility] [address] [place] [address] Dr. Suzie Brooks Erythrocyte distribution width (RBC) [Ratio] 13.9 % Normal 11.0-15.0 [facility] Comment on above: Performed By: #### U DINA, LIPID, TSH, BNP, CMP, T7 #### [facility] [address] [place] [address] Dr. Suzie Brooks Hematocrit (Bld) [Volume fraction] 46.6 % Normal 42.0-54.0 [facility] Comment on above: Performed By: #### U DINA, LIPID, TSH, BNP, CMP, T7 #### [facility] [address] [place] [address] Dr. Suzie Brooks Hemoglobin (Bld) [Mass/Vol] 15.7 g/dL Normal 14.0-18.0 [facility] Comment on above: Performed By: #### U DINA, LIPID, TSH, BNP, CMP, T7 #### [facility] [address] [place] [address] Dr. Suzie Brooks IG # 0.05 10e3/ul Critically high 0.00-0.03 [facility] Comment on above: Performed By: #### U DINA, LIPID, TSH, BNP, CMP, T7 #### [facility] [address] [place] [address] Dr. Suzie Brooks IG % 0.4 % Normal 0.0-0.5 [facility] Comment on above: Performed By: #### U DINA, LIPID, TSH, BNP, CMP, T7 #### [facility] [address] [place] [address] Dr. Suzie Brooks LYMPH # 3.7 103/ul Normal 1.2-3.8 [facility] Comment on above: Performed By: #### U DINA, LIPID, TSH, BNP, CMP, T7 #### [facility] [address] [place] [address] Dr. Suzie Brooks Lymphocytes/100 WBC (Bld) 26.6 % Normal 20.5-60.0 [facility] Comment on above: Performed By: #### U DINA, LIPID, TSH, BNP, CMP, T7 #### [facility] [address] [place] [address] Dr. Suzie Brooks MANUAL DIFF REQ NO Normal [facility] Comment on above: Performed By: #### U DINA, LIPID, TSH, BNP, CMP, T7 #### [facility] [address] [place] [address] Dr. Suzie Brooks MCH (RBC) [Entitic mass] 29.2 pg Normal 25.9-34.0 [facility] Comment on above: Performed By: #### U DINA, LIPID, TSH, BNP, CMP, T7 #### [facility] [address] [place] [address] Dr. Suzie Brooks MCHC (RBC) [Mass/Vol] 33.7 g/dL Normal 29.9-35.2 [facility] Comment on above: Performed By: #### U DINA, LIPID, TSH, BNP, CMP, T7 #### [facility] [address] [place] [address] Dr. Suzie Brooks MCV (RBC) [Entitic vol] 86.6 fL Normal 80.0-94.0 [facility] Comment on above: Performed By: #### U DINA, LIPID, TSH, BNP, CMP, T7 #### [facility] [address] [place] [address] Dr. Suzie Brooks MONO # 1.0 103/ul Critically high 0.3-0.8 [facility] Comment on above: Performed By: #### U DINA, LIPID, TSH, BNP, CMP, T7 #### [facility] [address] [address] [address] Suzie Brooks Monocytes/100 WBC (Bld) 7.2 % Normal 1.7-12.0 [facility] Comment on above: Performed By: #### U DINA, LIPID, TSH, BNP, CMP, T7 #### [facility] [address] [address] [address] Suzie Brooks NEUT # 8.7 103/ul Critically high 1.4-6.5 [facility] Comment on above: Performed By: #### U DINA, LIPID, TSH, BNP, CMP, T7 #### [facility] [address] [address] [address] Suzie Brooks Neutrophils/100 WBC (Bld) 62.9 % Normal 43.0-75.0 [facility] Comment on above: Performed By: #### U DINA, LIPID, TSH, BNP, CMP, T7 #### [facility] [address] [address] [address] Suzie Brooks Platelet mean volume (Bld) [Entitic vol] 9.4 fL Critically low 9.5-13.5 [facility] Comment on above: Performed By: #### U DINA, LIPID, TSH, BNP, CMP, T7 #### [facility] [address] [address] [address] Suzie Brooks PLT 277 103/ul Normal 150-450 [facility] Comment on above: Performed By: #### U DINA, LIPID, TSH, BNP, CMP, T7 #### [facility] [address] [address] [address] Suzie Brooks RBC 5.38 106/ul Normal 4.70-6.10 [facility] Comment on above: Performed By: #### U DINA, LIPID, TSH, BNP, CMP, T7 #### [facility] [address] [address] [address] Suzie Brooks WBC 13.8 103/ul Critically high 4.0-11.0 [facility] Comment on above: Performed By: #### U DINA, LIPID, TSH, BNP, CMP, T7 #### [facility] [address] [address] ABD/PELVIS WO CONon [...] Reilly CAST Date: 2022-02-16 20:51 Normal [facility] ER URINE PROFILEon 2 Bilirubin Ql (U) Negative Normal NEGATIVE [facility] Comment on above: Performed By: #### U DINA, LIPID, TSH, BNP, CMP, T7 #### [facility] [address] [address] [address] Suzie Brooks Clarity (U) CLEAR Normal CLEAR [facility] Comment on above: Performed By: #### U DINA, LIPID, TSH, BNP, CMP, T7 #### [facility] [address] [address] [address] Suzie Brooks Color (U) YELLOW Normal YELLOW [facility] Comment on above: Performed By: #### U DINA, LIPID, TSH, BNP, CMP, T7 #### [facility] [facility] [address] [address] [address] Suzie Brooks ERUDIOGOD A micrscopic examina tion will be performed if indicated. Normal [facility] Comment on above: Performed By: #### U DINA, LIPID, TSH, BNP, CMP, T7 #### [facility] [address] [address] [address] Suzie Brooks Glucose Ql (U) Negative Normal NEGATIVE [facility] Comment on above: Performed By: #### U DINA, LIPID, TSH, BNP, CMP, T7 #### [facility] [address] [address] [address] Suzie Brooks Hemoglobin Ql (U) MODERATE Abnormal NEGATIVE [facility] Comment on above: Performed By: #### U DINA, LIPID, TSH, BNP, CMP, T7 #### [facility] [address] [address] [address] Suzie Brooks Ketones Ql (U) Negative Normal NEGATIVE [facility] Comment on above: Performed By: #### U DINA, LIPID, TSH, BNP, CMP, T7 #### [facility] [address] [address] [address] Suzie Brooks LEUKOCYTES Negative Normal NEGATIVE [facility] Comment on above: Performed By: #### U DINA, LIPID, TSH, BNP, CMP, T7 #### [facility] [address] [address] [address] Suzie Brooks Nitrite Ql (U) Negative Normal NEGATIVE [facility] Comment on above: Performed By: #### U DINA, LIPID, TSH, BNP, CMP, T7 #### [facility] [address] [place] [address] Dr. Suzie Brooks pH (U) 5.5 [pH] Normal 5-9 [facility] Comment on above: Performed By: #### U DINA, LIPID, TSH, BNP, CMP, T7 #### [facility] [address] [place] [address] Dr. Suzie Brooks SPEC GRAVITY >=1.030 Abnormal 1.005-<=1.02 5 [facility] Comment on above: Performed By: #### U DINA, LIPID, TSH, BNP, CMP, T7 #### [facility] [address] [place] [address] Dr. Suzie Brooks UA PROTEIN Negative Normal NEGATIVE/ TRACE [facility] Comment on above: Performed By: #### U DINA, LIPID, TSH, BNP, CMP, T7 #### [facility] [address] [place] [address] Dr. Suzie Brooks UR MICRO IND INDICATED Normal [facility] Comment on above: Performed By: #### U DINA, LIPID, TSH, BNP, CMP, T7 #### [facility] [address] [place] [address] Dr. Suzie Brooks Urobilinogen Qn (U) 0.2 {Behzad'U}/dL Normal 0.2 - 1. 0 [facility] Comment on above: Performed By: #### U DINA, LIPID, TSH, BNP, CMP, T7 #### [facility] [address] [place] [address] Dr. Suzie Brooks PROF CHEM 8 (BAS METB)on Anion gap [Moles/Vol] 12.2 mmol/L Normal [facility] Comment on above: Performed By: #### U DINA, LIPID, TSH, BNP, CMP, T7 #### [facility] [address] [address] [address] Suzie Brooks Calcium [Mass/Vol] 8.5 mg/dL Normal 8.5-10.1 [facility] Comment on above: Performed By: #### U DINA, LIPID, TSH, BNP, CMP, T7 #### [facility] [address] [address] [address] Suzie Brooks Chloride [Moles/Vol] 104 mmol/L Normal 98-107 [facility] Comment on above: Performed By: #### U DINA, LIPID, TSH, BNP, CMP, T7 #### [facility] [address] [address] [address] Suzie Brooks CO2 [Moles/Vol] 24.1 mmol/L Normal 21.0-32.0 [facility] Comment on above: Performed By: #### U DINA, LIPID, TSH, BNP, CMP, T7 #### [facility] [address] [address] [address] Suzie Brooks Creatinine [Mass/Vol] 1.14 mg/dL Normal 0.70-1.30 [facility] Comment on above: Performed By: #### U DINA, LIPID, TSH, BNP, CMP, T7 #### [facility] [address] [address] [address] Suzie Brooks EGFR-AF PRYDEINIG >60 Normal >=60 [facility] Comment on above: Performed By: #### U DINA, LIPID, TSH, BNP, CMP, T7 #### [facility] [address] [address] [address] Suzie Brooks EGFR-NON AF PRYDEINIG >60 Normal >=60 [facility] Comment on above: Performed By: #### U DINA, LIPID, TSH, BNP, CMP, T7 #### [facility] [address] [address] [address] Suzie Brooks Glucose [Mass/Vol] 114 mg/dL Critically high 74-106 [facility] Comment on above: Performed By: #### U DINA, LIPID, TSH, BNP, CMP, T7 #### [facility] [address] [address] [address] Suzie Brooks Potassium [Moles/Vol] 4.3 mmol/L Normal 3.5-5.1 [facility] Comment on above: Performed By: #### U DINA, LIPID, TSH, BNP, CMP, T7 #### [facility] [address] [place] [address] Dr. Suzie Brooks Sodium [Moles/Vol] 136 mmol/L Normal 136-145 [facility] Comment on above: Performed By: #### U DINA, LIPID, TSH, BNP, CMP, T7 #### [facility] [address] [place] [address] Dr. Suzie Brooks Urea nitrogen [Mass/Vol] 14.0 mg/dL Normal 7.0-18.0 [facility] Comment on above: Performed By: #### U DINA, LIPID, TSH, BNP, CMP, T7 #### [facility] [address] [place] [address] Dr. Suzie Brooks Urea nitrogen/Creatinine [Mass ratio] 12.3 mg/mg Normal [facility] Comment on above: Performed By: #### U DINA, LIPID, TSH, BNP, CMP, T7 #### [facility] [address] [place] [address] Dr. Suzie Brooks URINE MICROSCOPIC ONLYon BACTERIA NONE SEEN Normal NONE SEEN [facility] Comment on above: Performed By: #### U DINA, LIPID, TSH, BNP, CMP, T7 #### [facility] [address] [place] [address] Dr. Suzie Brooks Bacteria identified Cx Nom (U) NOT INDICATED Normal [facility] Comment on above: Performed By: #### U DINA, LIPID, TSH, BNP, CMP, T7 #### [facility] [address] [place] [address] Dr. Suzie Brooks CAST NONE SEEN Normal NONE SEEN [facility] Comment on above: Performed By: #### U DINA, LIPID, TSH, BNP, CMP, T7 #### [facility] [address] [address] [address] Suzie Brooks Crystals LM Nom (Urine sed) NONE SEEN Normal NONE SEEN [facility] Comment on above: Performed By: #### U DINA, LIPID, TSH, BNP, CMP, T7 #### [facility] [address] [address] [address] Suzie Brooks Epithelial cells LM Ql (Urine sed) RARE Normal NONE SEEN /RARE [facility] Comment on above: Performed By: #### U DINA, LIPID, TSH, BNP, CMP, T7 #### [facility] [address] [address] [address] Suzie Brooks MUCOUS NONE SEEN Normal NONE SEEN [facility] Comment on above: Performed By: #### U DINA, LIPID, TSH, BNP, CMP, T7 #### [facility] [address] [place] [address] Dr. Suzie Brooks RBC 5-10 Abnormal 0-2 [facility] Comment on above: Performed By: #### U DINA, LIPID, TSH, BNP, CMP, T7 #### [facility] [address] [address] [address] Suzie Brooks WBC NONE SEEN Normal NONE SEEN [facility] Comment on above: Performed By: #### U DINA, LIPID, TSH, BNP, CMP, T7 #### [facility] [address] [address] [address] Suzie Brooks CITRATE URINE 24HRon 06-2 022 Citric Acid, U, 24hr 1312 mg/24 hr Critically high 320-124 0 [facility] Comment on above: Result Comment: This test was developed and its performance characteristics determined by [facility]. It has not been cleared or approved by the Food and Drug Administration. Performed By: #### U DINA, LIPID, TSH, BNP, CMP, T7 #### [facility] [address] [address] [address] Suzie Brooks Citric Acid, Urine 610 mg/L Normal Undefined [facility] Comment on above: Performed By: #### U DINA, LIPID, TSH, BNP, CMP, T7 #### [facility] [address] [address] [address] Suzie Brooks OXALATE 24HR URINEon 022 Oxalates, Urine 11 mg/L Normal Undefined [facility] Comment on above: Performed By: #### O [id number] #### [facility] [address] [place] [address] Dr. Suzie Brooks Oxalates, Urine 24hr 24 mg/24 hr Normal 7-44 [facility] Comment on above: Performed By: #### O X24HR #### [facility] [address] [place] [address] Dr. Suzie Brooks MAGNESIUM 24HR URINEon 02-02 Magnesium 24hr Urine 77.4 mg/24 hr Normal 12.0-293.0 [facility] Comment on above: Performed By: #### M AG24 #### [facility] [address] [place] [address] Dr. Suzie Brooks Magnesium UR 3.6 mg/dL Normal Not Estab. [facility] Comment on above: Performed By: #### M AG24 #### [facility] [address] [place] [address] Dr. Suzie Brooks PHOSPHORUS 24HR URINEon 01-10 Phosphorus, Urine 44.1 mg/dL Normal Not Estab. [facility] Comment on above: Performed By: #### U DINA, LIPID, TSH, BNP, CMP, T7 #### [facility] [address] [place] [address] Dr. Suzie Brooks Phosphorus, Urine 24hr 948 mg/24 hr Normal 390-1425 [facility] Comment on above: Performed By: #### U DINA, LIPID, TSH, BNP, CMP, T7 #### [facility] [address] [place] [address] Dr. Suzie Brooks URIC ACID 24 HR URINEon 01-10 Uric Acid, Urine 35.4 mg/dL Normal Not Estab. [facility] Comment on above: Performed By: #### U DINA, LIPID, TSH, BNP, CMP, T7 #### [facility] [address] [place] [address] Dr. Suzie Brooks Uric Acid, Urine 24hr 761.1 mg/24 hr Normal 182.4-936.8 [facility] Comment on above: Performed By: #### U DINA, LIPID, TSH, BNP, CMP, T7 #### [facility] [address] [address] [address] Suzie Brooks CALCIUM 24 HR URINEon 2021 CALC, 24 HR UR 187.0 mg/24 hr Normal 100.0-300.0 [facility] Comment on above: Performed By: #### U DINA, LIPID, TSH, BNP, CMP, T7 #### [facility] [address] [address] [address] Suzie Brooks UR CALCIUM 8.7 mg/dL Normal 5.1-21.0 [facility] Comment on above: Performed By: #### U DINA, LIPID, TSH, BNP, CMP, T7 #### [facility] [address] [place] [address] Dr. Suzie Brooks UR TOT VOL 2150 ml/24 HR Normal [facility] Comment on above: Performed By: #### U DINA, LIPID, TSH, BNP, CMP, T7 #### [facility] [address] [address] [address] Suzie Brooks CREA 24 HR URINEon 2 CREA, 24 HR UR 1983.59 mg/24 hr Normal 1,000.00- 2,0 00.00 [facility] Comment on above: Performed By: #### U DINA, LIPID, TSH, BNP, CMP, T7 #### [facility] [address] [place] [address] Dr. Suzie Brooks URINE CREAT 92.26 mg/dL Normal 20.00-300.00 [facility] Comment on above: Performed By: #### U DINA, LIPID, TSH, BNP, CMP, T7 #### [facility] [address] [place] [address] Dr. Suzie Brokos SODIUM 24 HR URINEon 02-01-2 022 NA, 24 HR UR 172 mmol/24 hr Normal 40-220 [facility] Comment on above: Performed By: #### U DINA, LIPID, TSH, BNP, CMP, T7 #### [facility] [address] [address] [address] Suzie Brooks Sodium (U) [Moles/Vol] 80 mmol/L Normal 30-90 [facility] Comment on above: Performed By: #### U DINA, LIPID, TSH, BNP, CMP, T7 #### [facility] [address] [place] [address] Dr. Suzie Brooks PTH INTACTon 01-31-2022 PTH, Intact 24 pg/mL Normal 15-65 [facility] Comment on above: Performed By: #### U DINA, LIPID, TSH, BNP, CMP, T7 #### [facility] [address] [place] [address] Dr. Suzie Brooks BUNon 01-30-2022 Urea nitrogen [Mass/Vol] 12.0 mg/dL Normal 7.0-18.0 [facility] Comment on above: Performed By: #### U DINA, LIPID, TSH, BNP, CMP, T7 #### [facility] [address] [place] [address] Dr. Suzie Brooks CALCIUMon 01-30-2022 Calcium [Mass/Vol] 8.6 mg/dL Normal 8.5-10.1 [facility] Comment on above: Performed By: #### U DINA, LIPID, TSH, BNP, CMP, T7 #### [facility] [address] [place] [address] Dr. Suzie Brooks CHLORIDEon 01-30-2022 Chloride [Moles/Vol] 104 mmol/L Normal 98-107 [facility] Comment on above: Performed By: #### U DINA, LIPID, TSH, BNP, CMP, T7 #### [facility] [address] [place] [address] Dr. Suzie Brooks CO2on 01-30-2022 CO2 [Moles/Vol] 29.3 mmol/L Normal 21.0-32.0 [facility] Comment on above: Performed By: #### U DINA, LIPID, TSH, BNP, CMP, T7 #### [facility] [address] [place] [address] Dr. Suzie Brooks CREATININEon 01-30-2022 Creatinine [Mass/Vol] 0.92 mg/dL Normal 0.70-1.30 [facility] Comment on above: Performed By: #### U DINA, LIPID, TSH, BNP, CMP, T7 #### [facility] [address] [address] [address] Suzie Brooks EGFR-AF PRYDEINIG >60 Normal >=60 [facility] Comment on above: Performed By: #### U DINA, LIPID, TSH, BNP, CMP, T7 #### [facility] [address] [address] [address] Suzie Brooks EGFR-NON AF PRYDEINIG >60 Normal >=60 [facility] Comment on above: Performed By: #### U DINA, LIPID, TSH, BNP, CMP, T7 #### [facility] [address] [address] [address] Suzie Brooks NAon 01-30-2022 Sodium [Moles/Vol] 140 mmol/L Normal 136-145 [facility] Comment on above: Performed By: #### U DINA, LIPID, TSH, BNP, CMP, T7 #### [facility] [address] [address] [address] Suzie Brooks POTASSIUMon 01-30-2022 Potassium [Moles/Vol] 4.0 mmol/L Normal 3.5-5.1 [facility] Comment on above: Performed By: #### U DINA, LIPID, TSH, BNP, CMP, T7 #### [facility] [address] [address] [address] Suzie Brooks URIC ACID SERUMon 01-30-2022 Urate [Mass/Vol] 5.2 mg/dL Normal 3.5-7.2 [facility] Comment on above: Performed By: #### U DINA, LIPID, TSH, BNP, CMP, T7 #### [facility] [address] [address] [address] Suzie Brooks US KIDNEYSon 12-18-2021 US KIDNEYS EXAMINATION: US KIDN EYS HISTORY: Kidney stone ; right flank [...] by: BEHZAD CARRASQUILLO Date: 2021-12-18 09:51 Normal [facility] XR KUB 1 VIEWon 11-21-2021 XR [...] by: BEHZAD CARRASQUILLO Date: 2021-11-21 09:45 Normal [facility] XR KUBon 11-15-2021 XR KUB [facility] [place] [address] [place] [address] XRay Report Signed Patient: Tom Aparicio MR#: [id number] 4 : 1950 Acct:[id number] Age/Sex: 71 / M ADM Date: 11/15/21 Loc: [place] Room: Type: [facility] Attending Dr: Miki Zeng MD [...] Hancock Jr., M.D.11/15/2021 10:43 AM Dictation Location: [place] [place] [address] Transcribed By: 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 This test has not been FDA [...] is terminated or revoked sooner. PERFORMED BY: [address] [place] [address] [place] [address] PATHOLOGIST HOME STAGING SPECIALIST JIA MINAYA M.D. Performed By: #### C OVID 19 [facility] #### [facility] [address] COVID-19 Positive/NegativeOr dered By: Miki Zeng on 11-13-2021 SARS-CoV-2 (COVID-19) N gene SUKHJINDER+probe Ql (Resp) Negative Negative [facility] Comment on above: Testing for SARS-CoV -2 by RT-PCRThis test was developed and its performance characteristics determined by [employer] ([employer]) and validated at the [facility]. This test has not been FDA [...] sooner. CALCULI, URINARYon 2 2,8 Dihydroxyadenine Normal [facility] Comment on above: Performed By: #### U DINA, LIPID, TSH, BNP, CMP, T7 #### [facility] [address] [place] [address] Dr. Suzie Brooks Ammonium Acid Urate Normal [facility] Comment on above: Performed By: #### U DINA, LIPID, TSH, BNP, CMP, T7 #### [facility] [address] [address] [address] Suzie Brooks Bilirubin Ql (U) Normal [facility] Comment on above: Performed By: #### U DINA, LIPID, TSH, BNP, CMP, T7 #### [facility] [address] [address] [address] Suzie Brooks Ca Oxalate Dihydrate Normal [facility] Comment on above: Performed By: #### U DINA, LIPID, TSH, BNP, CMP, T7 #### [facility] [address] [address] [address] Suzie Brooks CaHPO4 (Brushite) Normal [facility] Comment on above: Performed By: #### U DINA, LIPID, TSH, BNP, CMP, T7 #### [facility] [address] [address] [address] Suzie Brooks Calcium Bilirubinate Normal [facility] Comment on above: Performed By: #### U DINA, LIPID, TSH, BNP, CMP, T7 #### [facility] [address] [address] [address] Suzie Brooks Calcium Carbonate [facility] Comment on above: Performed By: #### U DINA, LIPID, TSH, BNP, CMP, T7 #### [facility] [address] [address] [address] Suzie Brooks Calcium Oxalate Monohydrate 70 % Normal [facility] Comment on above: Performed By: #### U DINA, LIPID, TSH, BNP, CMP, T7 #### [facility] [address] [address] [address] Suzie Brooks Calcium Palmitate [facility] Comment on above: Performed By: #### U DINA, LIPID, TSH, BNP, CMP, T7 #### [facility] [address] [address] [address] Suzie Brooks Calcium Phosphate Normal [facility] Comment on above: Performed By: #### U DINA, LIPID, TSH, BNP, CMP, T7 #### [facility] [address] [address] [address] Suzie Brooks Calcium Stearate Normal [facility] Comment on above: Performed By: #### U DINA, LIPID, TSH, BNP, CMP, T7 #### [facility] [address] [address] [address] Suzie Brooks Carbonate Apatite Normal [facility] Comment on above: Performed By: #### U DINA, LIPID, TSH, BNP, CMP, T7 #### [facility] [address] [address] [address] Suzie Brooks Cellular Material Normal [facility] Comment on above: Performed By: #### U DINA, LIPID, TSH, BNP, CMP, T7 #### [facility] [address] [place], [place] [address] Dr. Suzie Brooks Cholesterol [facility] Comment on above: Performed By: #### U DINA, LIPID, TSH, BNP, CMP, T7 #### [facility] [id number] Suzie Brooks Color (U) Brown [facility] Comment on above: Performed By: #### U DINA, LIPID, TSH, BNP, CMP, T7 #### [facility] [address] [address] [address] Suzie Brooks Comment [facility] Comment on above: Performed By: #### U DINA, LIPID, TSH, BNP, CMP, T7 #### [facility] [address] [address] [address] Suzie Brooks Comment: Comment [facility] Comment on above: Result Comment: Phys rosaan questions regarding Calculi Analysis contact [facility] at: [phone]. Performed By: #### U DINA, LIPID, TSH, BNP, CMP, T7 #### [facility] [address] [address] [address] Suzie Brooks Composition Comment [facility] Comment on above: Result Comment: Perc entage (Represents the % composition) Performed By: #### U DINA, LIPID, TSH, BNP, CMP, T7 #### [facility] [address] [address] [address] Suzie Brooks Cystine [facility] Comment on above: Performed By: #### U DINA, LIPID, TSH, BNP, CMP, T7 #### [facility] [id number] Suzie Brooks Disclaimer: Comment [facility] Comment on above: Result Comment: This test was developed and its performance characteristics determined by [facility]. It has not been cleared or approved by the Food and Drug Administration. Performed By: #### U DINA, LIPID, TSH, BNP, CMP, T7 #### [facility] [address] [address] [address] Suzie Brooks Dried Blood Normal [facility] Comment on above: Performed By: #### U DINA, LIPID, TSH, BNP, CMP, T7 #### [facility] [address] [address] [address] Suzie Brooks Drug or Metabolite Normal [facility] Comment on above: Performed By: #### U DINA, LIPID, TSH, BNP, CMP, T7 #### [facility] [address] [address] [address] Suzie Brooks Hydroxyapatite Normal [facility] Comment on above: Performed By: #### U DINA, LIPID, TSH, BNP, CMP, T7 #### [facility] [address] [address] [address] Suzie Brooks Mg NH4 PO4 (Struvite) [facility] Comment on above: Performed By: #### U DINA, LIPID, TSH, BNP, CMP, T7 #### [facility] [address] [address] [address] Suzie Brooks MgHPO4 (Newberyite) Normal [facility] Comment on above: Performed By: #### U DINA, LIPID, TSH, BNP, CMP, T7 #### [facility] [address] [address] [address] Suzie Brooks Other component(s) Normal [facility] Comment on above: Performed By: #### U DINA, LIPID, TSH, BNP, CMP, T7 #### [facility] [facility] [address] [address] [address] Suzie Brooks PDF . Normal [facility] Comment on above: Performed By: #### U DINA, LIPID, TSH, BNP, CMP, T7 #### [facility] [address] [address] [address] Suzie Brooks Photo Comment [facility] Comment on above: Result Comment: Luis prasad will follow under a separate cover Performed By: #### U DINA, LIPID, TSH, BNP, CMP, T7 #### [facility] [address] [address] [address] Suzie Brooks Please note: Comment Normal [facility] Comment on above: Result Comment: Calc shamika report will follow via computer, mail or fish egg packer delivery. Performed By: #### U DINA, LIPID, TSH, BNP, CMP, T7 #### [facility] [address] [address] [address] Suzie Brooks Size 3x2 Normal [facility] Comment on above: Result Comment: Mult iple pieces received. Dimensions of the largest piece reported. Performed By: #### U DINA, LIPID, TSH, BNP, CMP, T7 #### [facility] [address] [address] [address] Suzie Brooks Sodium Acid Urate Normal [facility] Comment on above: Performed By: #### U DINA, LIPID, TSH, BNP, CMP, T7 #### [facility] [address] [address] [address] Suzie Brooks Source Comment [facility] Comment on above: Result Comment: Rigceci t Ureter Performed By: #### U DINA, LIPID, TSH, BNP, CMP, T7 #### [facility] [address] [address] [address] Suzie Brooks Triamterene [facility] Comment on above: Performed By: #### U DINA, LIPID, TSH, BNP, CMP, T7 #### [facility] [address] [address] [address] Suzie Brooks Uric Acid 30 % [facility] Comment on above: Performed By: #### U DINA, LIPID, TSH, BNP, CMP, T7 #### [facility] [address] [address] [address] Suzie rBooks Uric Acid Dihydrate Normal [facility] Comment on above: Performed By: #### U DINA, LIPID, TSH, BNP, CMP, T7 #### [facility] [address] [address] [address] Suzie Brooks Weight 12 mg Normal [facility] Comment on above: Performed By: #### U DINA, LIPID, TSH, BNP, CMP, T7 #### [facility] [address] [address] [address] Suzie Brooks Xanthine Normal [facility] Comment on above: Performed By: #### U DINA, LIPID, TSH, BNP, CMP, T7 #### [facility] [address] [address] [address] Suzie Brooks XR KUB 1 VIEWon [...] by: RAFAEL GRAVES Date: 2021-11-12 13:18 Normal [facility] XR CHEST 2 Von 11-08-2021 XR [...] by: CARLOS GROSS Date: 2021-11-08 15:50 Normal [facility] CBC AUTO DIFFon 11-07-2021 BASO # 0.0 103/ul Normal 0.0-0.1 [facility] Comment on above: Performed By: #### U DINA, LIPID, TSH, BNP, CMP, T7 #### [facility] [id number] Suzie Brooks Basophils/100 WBC (Bld) 0.2 % Normal 0.2-2.0 [facility] Comment on above: Performed By: #### U DINA, LIPID, TSH, BNP, CMP, T7 #### [facility] [address] [place] [address] Dr. Suzie Brooks EO # 0.0 103/ul Normal 0.0-0.7 [facility] Comment on above: Performed By: #### U DINA, LIPID, TSH, BNP, CMP, T7 #### [facility] [address] [place] [address] Dr. Suzie Brooks Eosinophils/100 WBC (Bld) 0.0 % Critically low 0.9-7.0 [facility] Comment on above: Performed By: #### U DINA, LIPID, TSH, BNP, CMP, T7 #### [facility] [address] [place] [address] Dr. Suzie Brooks Erythrocyte distribution width (RBC) [Ratio] 14.0 % Normal 11.0-15.0 [facility] Comment on above: Performed By: #### U DINA, LIPID, TSH, BNP, CMP, T7 #### [facility] [address] [place] [address] Dr. Suzie Brooks Hematocrit (Bld) [Volume fraction] 41.8 % Critically low 42.0-54.0 [facility] Comment on above: Performed By: #### U DINA, LIPID, TSH, BNP, CMP, T7 #### [facility] [address] [place] [address] Dr. Suzie Brooks Hemoglobin (Bld) [Mass/Vol] 13.7 g/dL Critically low 14.0-18.0 [facility] Comment on above: Performed By: #### U DINA, LIPID, TSH, BNP, CMP, T7 #### [facility] [address] [place] [address] Dr. Suzie Brooks IG # 0.14 10e3/ul Critically high 0.00-0.03 [facility] Comment on above: Performed By: #### U DINA, LIPID, TSH, BNP, CMP, T7 #### [facility] [address] [place] [address] Dr. Suzie Brooks IG % 0.9 % Critically high 0.0-0.5 [facility] Comment on above: Performed By: #### U DINA, LIPID, TSH, BNP, CMP, T7 #### [facility] [address] [address] [address] Suzie Brooks LYMPH # 1.6 103/ul Normal 1.2-3.8 [facility] Comment on above: Performed By: #### U DINA, LIPID, TSH, BNP, CMP, T7 #### [facility] [address] [address] [address] Suzie Brooks Lymphocytes/100 WBC (Bld) 10.2 % Critically low 20.5-60.0 [facility] Comment on above: Performed By: #### U DINA, LIPID, TSH, BNP, CMP, T7 #### [facility] [address] [place] [address] Dr. Suzie Brooks MANUAL DIFF REQ NO Normal [facility] Comment on above: Performed By: #### U DINA, LIPID, TSH, BNP, CMP, T7 #### [facility] [address] [place] [address] Dr. Suzie Brooks MCH (RBC) [Entitic mass] 28.8 pg Normal 25.9-34.0 [facility] Comment on above: Performed By: #### U DINA, LIPID, TSH, BNP, CMP, T7 #### [facility] [address] [place] [address] Dr. Suzie Brooks MCHC (RBC) [Mass/Vol] 32.8 g/dL Normal 29.9-35.2 [facility] Comment on above: Performed By: #### U DINA, LIPID, TSH, BNP, CMP, T7 #### [facility] [address] [address] [address] Suzie Brooks MCV (RBC) [Entitic vol] 87.8 fL Normal 80.0-94.0 [facility] Comment on above: Performed By: #### U DINA, LIPID, TSH, BNP, CMP, T7 #### [facility] [address] [place] [address] Dr. Suzie Brooks MONO # 1.0 103/ul Critically high 0.3-0.8 [facility] Comment on above: Performed By: #### U DINA, LIPID, TSH, BNP, CMP, T7 #### [facility] [address] [address] [address] Suzie Brooks Monocytes/100 WBC (Bld) 6.6 % Normal 1.7-12.0 [facility] Comment on above: Performed By: #### U DINA, LIPID, TSH, BNP, CMP, T7 #### [facility] [address] [address] [address] Suzie Brooks NEUT # 13.0 103/ul Critically high 1.4-6.5 [facility] Comment on above: Performed By: #### U DINA, LIPID, TSH, BNP, CMP, T7 #### [facility] [address] [address] [address] Suzie Brooks Neutrophils/100 WBC (Bld) 82.1 % Critically high 43.0-75.0 [facility] Comment on above: Performed By: #### U DINA, LIPID, TSH, BNP, CMP, T7 #### [facility] [address] [address] [address] Suzie Brooks Platelet mean volume (Bld) [Entitic vol] 9.3 fL Critically low 9.5-13.5 [facility] Comment on above: Performed By: #### U DINA, LIPID, TSH, BNP, CMP, T7 #### [facility] [address] [address] [address] Suzie Brooks PLT 301 103/ul Normal 150-450 [facility] Comment on above: Performed By: #### U DINA, LIPID, TSH, BNP, CMP, T7 #### [facility] [address] [address] [address] Suzie Brooks RBC 4.76 106/ul Normal 4.70-6.10 [facility] Comment on above: Performed By: #### U DINA, LIPID, TSH, BNP, CMP, T7 #### [facility] [address] [address] [address] Suzie Brooks WBC 15.9 103/ul Critically high 4.0-11.0 [facility] Comment on above: Performed By: #### U DINA, LIPID, TSH, BNP, CMP, T7 #### [facility] [address] [place] [address] Dr. Suzie Brooks POINT OF CARE GLUCOSEon 10-11 Glucose [Mass/Vol] 128 mg/dL Critically high 74-106 [facility] Comment on above: Performed By: #### U DINA, LIPID, TSH, BNP, CMP, T7 #### [facility] [address] [place] [address] Dr. Suzie Brooks PROF 14(COMP METB)on 022 Albumin [Mass/Vol] 3.1 g/dL Critically low 3.4-5.0 [facility] Comment on above: Performed By: #### M AG24 #### [facility] [address] [place] [address] Dr. Suzie Brooks Albumin/Globulin [Mass ratio] 0.9 {ratio} Normal [facility] Comment on above: Performed By: #### M AG24 #### [facility] [address] [place] [address] Dr. Suzie Brooks ALP [Catalytic activity/Vol] 52 U/L Normal 46-116 [facility] Comment on above: Performed By: #### M AG24 #### [facility] [address] [place] [address] Dr. Suzie Brooks ALT [Catalytic activity/Vol] 39 U/L Normal 16-63 [facility] Comment on above: Performed By: #### M AG24 #### [facility] [address] [place] [address] Dr. Suzie Brooks Anion gap [Moles/Vol] 14.7 mmol/L Normal [facility] Comment on above: Performed By: #### M AG24 #### [facility] [address] [place] [address] Dr. Suzie Brooks AST [Catalytic activity/Vol] 27 U/L Normal 15-37 [facility] Comment on above: Performed By: #### M AG24 #### [facility] [address] [address] [address] Suzie Brooks Bilirubin [Mass/Vol] 0.4 mg/dL Normal 0.2-1.3 [facility] Comment on above: Performed By: #### M AG24 #### [facility] [address] [place] [address] Dr. Suzie Brooks Calcium [Mass/Vol] 7.7 mg/dL Critically low 8.5-10.1 [facility] Comment on above: Performed By: #### M AG24 #### [facility] [address] [place] [address] Dr. Suzie Brooks Chloride [Moles/Vol] 104 mmol/L Normal 98-107 [facility] Comment on above: Performed By: #### M AG24 #### [facility] [address] [place] [address] Dr. Suzie Brooks CO2 [Moles/Vol] 23.4 mmol/L Normal 22.0-30.0 [facility] Comment on above: Performed By: #### M AG24 #### [facility] [address] [place] [address] Dr. Suzie Brooks Creatinine [Mass/Vol] 1.03 mg/dL Normal 0.66-1.25 [facility] Comment on above: Performed By: #### M AG24 #### [facility] [address] [place] [address] Dr. Suzie Brooks EGFR-AF PRYDEINIG >60 Normal >=60 [facility] Comment on above: Performed By: #### M AG24 #### [facility] [address] [place] [address] Dr. Suzie Brooks EGFR-NON AF PRYDEINIG >60 Normal >=60 [facility] Comment on above: Performed By: #### M AG24 #### [facility] [address] [place] [address] Dr. Suzie Brooks Globulin (S) [Mass/Vol] 3.5 g/dL Normal [facility] Comment on above: Performed By: #### M AG24 #### [facility] [address] [place] [address] Dr. Suzie Brooks Glucose [Mass/Vol] 142 mg/dL Critically high 74-106 [facility] Comment on above: Performed By: #### M AG24 #### [facility] [address] [place] [address] Dr. Suzie Brooks Potassium [Moles/Vol] 4.1 mmol/L Normal 3.4-5.0 [facility] Comment on above: Performed By: #### M AG24 #### [facility] [address] [place] [address] Dr. Suzie Brooks Protein [Mass/Vol] 6.6 g/dL Normal 6.1-8.2 [facility] Comment on above: Performed By: #### M AG24 #### [facility] [address] [place] [address] Dr. Suzie Brooks Sodium [Moles/Vol] 138 mmol/L Normal 137-145 [facility] Comment on above: Performed By: #### M AG24 #### [facility] [address] [place] [address] Dr. Suzie Brooks Urea nitrogen [Mass/Vol] 15.0 mg/dL Normal 7.0-18.0 [facility] Comment on above: Performed By: #### M AG24 #### [facility] [address] [place] [address] Dr. Suzie Brooks Urea nitrogen/Creatinine [Mass ratio] 14.6 mg/mg Normal [facility] Comment on above: Performed By: #### M AG24 #### [facility] [address] [place] [address] Dr. Suzie Brooks CBC AUTO DIFFon 11-06-2021 BASO # 0.1 103/ul Normal 0.0-0.1 [facility] Comment on above: Performed By: #### U DINA, LIPID, TSH, BNP, CMP, T7 #### [facility] [address] [place] [address] Dr. Suzie Brooks Basophils/100 WBC (Bld) 0.5 % Normal 0.2-2.0 [facility] Comment on above: Performed By: #### U DINA, LIPID, TSH, BNP, CMP, T7 #### [facility] [address] [place] [address] Dr. Suzie Brooks EO # 0.3 103/ul Normal 0.0-0.7 [facility] Comment on above: Performed By: #### U DINA, LIPID, TSH, BNP, CMP, T7 #### [facility] [address] [place] [address] Dr. Suzie Brooks Eosinophils/100 WBC (Bld) 2.1 % Normal 0.9-7.0 [facility] Comment on above: Performed By: #### U DINA, LIPID, TSH, BNP, CMP, T7 #### [facility] [address] [place] [address] Dr. Suzie Brooks Erythrocyte distribution width (RBC) [Ratio] 13.8 % Normal 11.0-15.0 [facility] Comment on above: Performed By: #### U DINA, LIPID, TSH, BNP, CMP, T7 #### [facility] [address] [place] [address] Dr. Suzie Brooks Hematocrit (Bld) [Volume fraction] 46.9 % Normal 42.0-54.0 [facility] Comment on above: Performed By: #### U DINA, LIPID, TSH, BNP, CMP, T7 #### [facility] [address] [place] [address] Dr. Suzie Brooks Hemoglobin (Bld) [Mass/Vol] 15.4 g/dL Normal 14.0-18.0 [facility] Comment on above: Performed By: #### U DINA, LIPID, TSH, BNP, CMP, T7 #### [facility] [address] [place] [address] Dr. Suzie Brooks IG # 0.05 10e3/ul Critically high 0.00-0.03 [facility] Comment on above: Performed By: #### U DINA, LIPID, TSH, BNP, CMP, T7 #### [facility] [address] [place] [address] Dr. Suzie Brooks IG % 0.4 % Normal 0.0-0.5 [facility] Comment on above: Performed By: #### U DINA, LIPID, TSH, BNP, CMP, T7 #### [facility] [address] [place] [address] Dr. Suzie Brooks LYMPH # 2.8 103/ul Normal 1.2-3.8 [facility] Comment on above: Performed By: #### U DINA, LIPID, TSH, BNP, CMP, T7 #### [facility] [address] [place] [address] Dr. Suzie Brooks Lymphocytes/100 WBC (Bld) 22.5 % Normal 20.5-60.0 [facility] Comment on above: Performed By: #### U DINA, LIPID, TSH, BNP, CMP, T7 #### [facility] [address] [place] [address] Dr. Suzie Brooks MANUAL DIFF REQ NO Normal [facility] Comment on above: Performed By: #### U DINA, LIPID, TSH, BNP, CMP, T7 #### [facility] [address] [place] [address] Dr. Suzie Brooks MCH (RBC) [Entitic mass] 28.6 pg Normal 25.9-34.0 [facility] Comment on above: Performed By: #### U DINA, LIPID, TSH, BNP, CMP, T7 #### [facility] [address] [place] [address] Dr. Suzie Brooks MCHC (RBC) [Mass/Vol] 32.8 g/dL Normal 29.9-35.2 [facility] Comment on above: Performed By: #### U DINA, LIPID, TSH, BNP, CMP, T7 #### [facility] [address] [place] [address] Dr. Suzie Brooks MCV (RBC) [Entitic vol] 87.0 fL Normal 80.0-94.0 [facility] Comment on above: Performed By: #### U DINA, LIPID, TSH, BNP, CMP, T7 #### [facility] [address] [place] [address] Dr. Suzie Brooks MONO # 0.9 103/ul Critically high 0.3-0.8 [facility] Comment on above: Performed By: #### U DINA, LIPID, TSH, BNP, CMP, T7 #### [facility] [address] [address] [address] Suzie Brooks Monocytes/100 WBC (Bld) 6.9 % Normal 1.7-12.0 [facility] Comment on above: Performed By: #### U DINA, LIPID, TSH, BNP, CMP, T7 #### [facility] [address] [address] [address] Suzie Brooks NEUT # 8.4 103/ul Critically high 1.4-6.5 [facility] Comment on above: Performed By: #### U DINA, LIPID, TSH, BNP, CMP, T7 #### [facility] [address] [place] [address] Dr. Suzie Brooks Neutrophils/100 WBC (Bld) 67.6 % Normal 43.0-75.0 [facility] Comment on above: Performed By: #### U DINA, LIPID, TSH, BNP, CMP, T7 #### [facility] [address] [place] [address] Dr. Suzie Brooks Platelet mean volume (Bld) [Entitic vol] 9.6 fL Normal 9.5-13.5 [facility] Comment on above: Performed By: #### U DINA, LIPID, TSH, BNP, CMP, T7 #### [facility] [address] [place] [address] Dr. Suzie Brooks PLT 284 103/ul Normal 150-450 [facility] Comment on above: Performed By: #### U DINA, LIPID, TSH, BNP, CMP, T7 #### [facility] [address] [place] [address] Dr. Suzie Brooks RBC 5.39 106/ul Normal 4.70-6.10 [facility] Comment on above: Performed By: #### U DINA, LIPID, TSH, BNP, CMP, T7 #### [facility] [address] [place] [address] Dr. Suzie Brooks WBC 12.5 103/ul Critically high 4.0-11.0 [facility] Comment on above: Performed By: #### U DINA, LIPID, TSH, BNP, CMP, T7 #### [facility] [address] [place], [place] [address] Dr. Suzie Brooks CULTURE BLOODon 11-06-2021 Microscopic examination of blood, culture Culture Observations: NO GROWTH AT 5 DAYS. Normal [facility] Comment on above: Performed By: #### M AG24 #### [facility] [address] [place], [place] [address] Dr. Suzie Brooks CULTURE URINEon 11-06-2021 CULTURE URINE Culture Observations : NO GROWTH. Normal [facility] Comment on above: Performed By: #### M AG24 #### [facility] [address] [address] [address] Suzie Brooks Covid-19 PCR ([facility])on 10-10 SARS-CoV-2 (COVID-19) RNA SUKHJINDER+probe Ql (Unsp spec) Not detected Normal NOT DETECTED [facility] Comment on above: Result Comment: When diagnostic testing is negative, the possibility of a false negative should be considered in the context of a patient's recent exposures and the presence of clinical signs and symptoms consistent with SARS-CoV-2. This test is not yet approved or cleared by the [place] Food and Drug Administration (FDA). This test was developed by [employer], [place], [place]. The performance characteristics of this test were validated by [facility]. The results are not intended to be used as the sole means for clinical diagnosis or patient management decisions. [facility] is authorized under Clinical Laboratory Improvement [...] for this test is supported by the [place] of Health and Human Service's declaration that [...] DINA, LIPID, TSH, BNP, CMP, T7 #### [facility] [address] [address] [address] Suzie Brooks ER URINE PROFILEon 2 Bilirubin Ql (U) Negative Normal NEGATIVE [facility] Comment on above: Performed By: #### U DINA, LIPID, TSH, BNP, CMP, T7 #### [facility] [address] [address] [address] Suzie Brooks Clarity (U) CLEAR Normal CLEAR [facility] Comment on above: Performed By: #### U DINA, LIPID, TSH, BNP, CMP, T7 #### [facility] [address] [address] [address] Suzie Brooks Color (U) YELLOW Normal YELLOW [facility] Comment on above: Performed By: #### U DINA, LIPID, TSH, BNP, CMP, T7 #### [facility] [address] [place] [address] Dr. Suzie ESTEBAN A micrscopic examina tion will be performed if indicated. Normal [facility] Comment on above: Performed By: #### U DINA, LIPID, TSH, BNP, CMP, T7 #### [facility] [address] [address] [address] Suzie Brooks Glucose Ql (U) Negative Normal NEGATIVE [facility] [place] [facility] Comment on above: Performed By: #### U DINA, LIPID, TSH, BNP, CMP, T7 #### [facility] [address] [address] [address] Suzie Brooks Hemoglobin Ql (U) LARGE Abnormal NEGATIVE [facility] Comment on above: Performed By: #### U DINA, LIPID, TSH, BNP, CMP, T7 #### [facility] [address] [address] [address] Suzie Brooks Ketones Ql (U) Negative Normal NEGATIVE [facility] Comment on above: Performed By: #### U DINA, LIPID, TSH, BNP, CMP, T7 #### [facility] [address] [address] [address] uSzie Brooks LEUKOCYTES TRACE Abnormal NEGATIVE [facility] Comment on above: Performed By: #### U DINA, LIPID, TSH, BNP, CMP, T7 #### [facility] [address] [address] Dr. Suzie Brooks Nitrite Ql (U) Negative Normal NEGATIVE [facility] Comment on above: Performed By: #### U DINA, LIPID, TSH, BNP, CMP, T7 #### [facility] [address] [address] [address] Suzie Brooks pH (U) 5.0 [pH] Normal 5-9 [facility] Comment on above: Performed By: #### U DINA, LIPID, TSH, BNP, CMP, T7 #### [facility] [address] [address] [address] Suzie Brooks Protein (U) [Mass/Vol] 100 mg/dL Abnormal NEGATIVE/ TRACE [facility] Comment on above: Performed By: #### U DINA, LIPID, TSH, BNP, CMP, T7 #### [facility] [address] [place] [address] Dr. Suzie Brooks SPEC GRAVITY 1.030 Abnormal 1.005-<=1.02 5 [facility] Comment on above: Performed By: #### U DINA, LIPID, TSH, BNP, CMP, T7 #### [facility] [address] [address] [address] Suzie Brooks UR MICRO IND INDICATED Normal [facility] Comment on above: Performed By: #### U DINA, LIPID, TSH, BNP, CMP, T7 #### [facility] [address] [place] [address] Dr. Suzie Brooks Urobilinogen Qn (U) 0.2 {Behzad'U}/dL Normal 0.2 - 1. 0 [facility] Comment on above: Performed By: #### U DINA, LIPID, TSH, BNP, CMP, T7 #### [facility] [address] [place] [address] Dr. Suzie Brooks LACTATE/LACTIC ACIDon 2021 Lactate [Moles/Vol] 1.0 mmol/L Normal 0.7-2.0 [facility] Comment on above: Performed By: #### U DINA, LIPID, TSH, BNP, CMP, T7 #### [facility] [address] [address] [address] Suzie Brooks PROF 14(COMP METB)on 022 Albumin [Mass/Vol] 3.8 g/dL Normal 3.4-5.0 [facility] Comment on above: Performed By: #### U DINA, LIPID, TSH, BNP, CMP, T7 #### [facility] [address] [place] [address] Dr. Suzie Brooks Albumin/Globulin [Mass ratio] 1.0 {ratio} Normal [facility] Comment on above: Performed By: #### U DINA, LIPID, TSH, BNP, CMP, T7 #### [facility] [address] [place] [address] Dr. Suzie Brooks ALP [Catalytic activity/Vol] 66 U/L Normal 46-116 [facility] Comment on above: Performed By: #### U DINA, LIPID, TSH, BNP, CMP, T7 #### [facility] [address] [place] [address] Dr. Suzie Brooks ALT [Catalytic activity/Vol] 52 U/L Normal 16-63 [facility] Comment on above: Performed By: #### U DINA, LIPID, TSH, BNP, CMP, T7 #### [facility] [address] [place] [address] Dr. Suzie Brooks Anion gap [Moles/Vol] 14.7 mmol/L Normal [facility] Comment on above: Performed By: #### U DINA, LIPID, TSH, BNP, CMP, T7 #### [facility] [address] [place] [address] Dr. Suzie Brooks AST [Catalytic activity/Vol] 40 U/L Critically high 15-37 [facility] Comment on above: Performed By: #### U DINA, LIPID, TSH, BNP, CMP, T7 #### [facility] [address] [place] [address] Dr. Suzie Brooks Bilirubin [Mass/Vol] 0.6 mg/dL Normal 0.2-1.3 [facility] Comment on above: Performed By: #### U DINA, LIPID, TSH, BNP, CMP, T7 #### [facility] [address] [address] [address] Suzie Brooks Calcium [Mass/Vol] 8.2 mg/dL Critically low 8.5-10.1 [facility] e [facility] Comment on above: Performed By: #### U DINA, LIPID, TSH, BNP, CMP, T7 #### [facility] [address] [address] [address] Suzie Brooks Chloride [Moles/Vol] 102 mmol/L Normal 98-107 [facility] Comment on above: Performed By: #### U DINA, LIPID, TSH, BNP, CMP, T7 #### [facility] [address] [place] [address] Dr. Suzie Brooks CO2 [Moles/Vol] 27.4 mmol/L Normal 22.0-30.0 [facility] Comment on above: Performed By: #### U DINA, LIPID, TSH, BNP, CMP, T7 #### [facility] [address] [place] [address] Dr. Suzie Brooks Creatinine [Mass/Vol] 1.05 mg/dL Normal 0.66-1.25 [facility] Comment on above: Performed By: #### U DINA, LIPID, TSH, BNP, CMP, T7 #### [facility] [address] [place] [address] Dr. Suzie Brooks EGFR-AF PRYDEINIG >60 Normal >=60 [facility] Comment on above: Performed By: #### U DINA, LIPID, TSH, BNP, CMP, T7 #### [facility] [address] [place] [address] Dr. Suzie Brooks EGFR-NON AF PRYDEINIG >60 Normal >=60 [facility] Comment on above: Performed By: #### U DINA, LIPID, TSH, BNP, CMP, T7 #### [facility] [address] [place] [address] Dr. Suzie Brooks Globulin (S) [Mass/Vol] 3.7 g/dL Normal [facility] Comment on above: Performed By: #### U DINA, LIPID, TSH, BNP, CMP, T7 #### [facility] [address] [address] [address] Suzie Brooks Glucose [Mass/Vol] 124 mg/dL Critically high 74-106 [facility] Comment on above: Performed By: #### U DINA, LIPID, TSH, BNP, CMP, T7 #### [facility] [address] [address] [address] Suzie Brooks Potassium [Moles/Vol] 4.1 mmol/L Normal 3.4-5.0 [facility] Comment on above: Performed By: #### U DINA, LIPID, TSH, BNP, CMP, T7 #### [facility] [address] [address] [address] Suzie Brooks Protein [Mass/Vol] 7.5 g/dL Normal 6.1-8.2 [facility] Comment on above: Performed By: #### U DINA, LIPID, TSH, BNP, CMP, T7 #### [facility] [address] [place] [address] Dr. Suzie Brooks Sodium [Moles/Vol] 140 mmol/L Normal 137-145 [facility] Comment on above: Performed By: #### U DINA, LIPID, TSH, BNP, CMP, T7 #### [facility] [address] [address] [address] Suzie Brooks Urea nitrogen [Mass/Vol] 16.0 mg/dL Normal 7.0-18.0 [facility] Comment on above: Performed By: #### U DINA, LIPID, TSH, BNP, CMP, T7 #### [facility] [address] [place] [address] Dr. Suzie Brooks Urea nitrogen/Creatinine [Mass ratio] 15.2 mg/mg Normal [facility] Comment on above: Performed By: #### U DINA, LIPID, TSH, BNP, CMP, T7 #### [facility] [address] [place] [address] Dr. Suzie Brooks URINE MICROSCOPIC ONLYon BACTERIA SMALL Abnormal NONE SEEN [facility] Comment on above: Performed By: #### U DINA, LIPID, TSH, BNP, CMP, T7 #### [facility] [address] [address] [address] Suzie Brooks Bacteria identified Cx Nom (U) INDICATED Normal [facility] Comment on above: Performed By: #### U DINA, LIPID, TSH, BNP, CMP, T7 #### [facility] [address] [address] [address] Suzie Brooks CAST NONE SEEN Normal NONE SEEN [facility] Comment on above: Performed By: #### U DINA, LIPID, TSH, BNP, CMP, T7 #### [facility] [address] [address] [address] Suzie Brooks Crystals LM Nom (Urine sed) NONE SEEN Normal NONE SEEN [facility] Comment on above: Performed By: #### U DINA, LIPID, TSH, BNP, CMP, T7 #### [facility] [address] [address] [address] Suzie Brooks Epithelial cells LM Ql (Urine sed) RARE Normal NONE SEEN /RARE [facility] Comment on above: Performed By: #### U DINA, LIPID, TSH, BNP, CMP, T7 #### [facility] [address] [address] [address] Suzie Brooks MUCOUS NONE SEEN Normal NONE SEEN [facility] Comment on above: Performed By: #### U DINA, LIPID, TSH, BNP, CMP, T7 #### [facility] [address] [address] [address] Suzie Brooks RBC 50-75 Abnormal 0-2 [facility] Comment on above: Performed By: #### U DINA, LIPID, TSH, BNP, CMP, T7 #### [facility] [address] [address] [address] Suzie Brooks WBC 20-50 Abnormal NONE SEEN [facility] Comment on above: Performed By: #### U DINA, LIPID, TSH, BNP, CMP, T7 #### [facility] [address] [place] [address] Dr. Suzie Brooks XR KUB 1 VIEWon [...] BEHZAD SANTOS Date: 2021-11-06 21:58 Normal [facility] XR KUB 1 VIEW EXAMINATION: XR [...] nephrolithiasis and ureterolithiasis Electronically authenticated by: RAFAEL GRAEVS Date: 2021-11-06 08:06 Normal [facility] CBC AUTO DIFFon 11-05-2021 BASO # 0.1 103/ul Normal 0.0-0.1 [facility] Comment on above: Performed By: #### U DINA, LIPID, TSH, BNP, CMP, T7 #### [facility] [address] [place] [address] Dr. Suzie Brooks Basophils/100 WBC (Bld) 0.6 % Normal 0.2-2.0 [facility] Comment on above: Performed By: #### U DINA, LIPID, TSH, BNP, CMP, T7 #### [facility] [address] [address] [address] Suzie Brooks EO # 0.3 103/ul Normal 0.0-0.7 [facility] Comment on above: Performed By: #### U DINA, LIPID, TSH, BNP, CMP, T7 #### [facility] [address] [address] [address] Suzie Brooks Eosinophils/100 WBC (Bld) 2.2 % Normal 0.9-7.0 [facility] Comment on above: Performed By: #### U DINA, LIPID, TSH, BNP, CMP, T7 #### [facility] [address] [address] [address] Suzie Brooks Erythrocyte distribution width (RBC) [Ratio] 13.7 % Normal 11.0-15.0 [facility] Comment on above: Performed By: #### U DINA, LIPID, TSH, BNP, CMP, T7 #### [facility] [address] [place] [address] Dr. Suzie Brooks Hematocrit (Bld) [Volume fraction] 49.0 % Normal 42.0-54.0 [facility] Comment on above: Performed By: #### U DINA, LIPID, TSH, BNP, CMP, T7 #### [facility] [address] [place] [address] Dr. Suzie Brooks Hemoglobin (Bld) [Mass/Vol] 15.9 g/dL Normal 14.0-18.0 [facility] Comment on above: Performed By: #### U DINA, LIPID, TSH, BNP, CMP, T7 #### [facility] [address] [place] [address] Dr. Suzie Brooks IG # 0.07 10e3/ul Critically high 0.00-0.03 [facility] Comment on above: Performed By: #### U DINA, LIPID, TSH, BNP, CMP, T7 #### [facility] [address] [place] [address] Dr. Suzie Brooks IG % 0.5 % Normal 0.0-0.5 [facility] Comment on above: Performed By: #### U DINA, LIPID, TSH, BNP, CMP, T7 #### [facility] [address] [place] [address] Dr. Suzie Brooks LYMPH # 3.1 103/ul Normal 1.2-3.8 [facility] Comment on above: Performed By: #### U DINA, LIPID, TSH, BNP, CMP, T7 #### [facility] [address] [place] [address] Dr. Suzie Brooks Lymphocytes/100 WBC (Bld) 23.8 % Normal 20.5-60.0 [facility] Comment on above: Performed By: #### U DINA, LIPID, TSH, BNP, CMP, T7 #### [facility] [address] [address] [address] Suzie Brooks MANUAL DIFF REQ NO Normal [facility] Comment on above: Performed By: #### U DINA, LIPID, TSH, BNP, CMP, T7 #### [facility] [address] [address] [address] Suzie Brooks MCH (RBC) [Entitic mass] 28.8 pg Normal 25.9-34.0 [facility] Comment on above: Performed By: #### U DINA, LIPID, TSH, BNP, CMP, T7 #### [facility] [address] [place] [address] Dr. Suzie Brooks MCHC (RBC) [Mass/Vol] 32.4 g/dL Normal 29.9-35.2 [facility] Comment on above: Performed By: #### U DINA, LIPID, TSH, BNP, CMP, T7 #### [facility] [address] [place] [address] Dr. Suzie Brooks MCV (RBC) [Entitic vol] 88.8 fL Normal 80.0-94.0 [facility] Comment on above: Performed By: #### U DINA, LIPID, TSH, BNP, CMP, T7 #### [facility] [address] [place] [address] Dr. Suzie Brooks MONO # 0.9 103/ul Critically high 0.3-0.8 [facility] Comment on above: Performed By: #### U DINA, LIPID, TSH, BNP, CMP, T7 #### [facility] [address] [place] [address] Dr. Suzie Brooks Monocytes/100 WBC (Bld) 6.8 % Normal 1.7-12.0 [facility] Comment on above: Performed By: #### U DINA, LIPID, TSH, BNP, CMP, T7 #### [facility] [address] [place] [address] Dr. Suzie Brooks NEUT # 8.7 103/ul Critically high 1.4-6.5 [facility] Comment on above: Performed By: #### U DINA, LIPID, TSH, BNP, CMP, T7 #### [facility] [address] [address] [address] Suzie Brooks Neutrophils/100 WBC (Bld) 66.1 % Normal 43.0-75.0 [facility] Comment on above: Performed By: #### U DINA, LIPID, TSH, BNP, CMP, T7 #### [facility] [address] [address] [address] Suzie Brooks Platelet mean volume (Bld) [Entitic vol] 9.4 fL Critically low 9.5-13.5 [facility] Comment on above: Performed By: #### U DINA, LIPID, TSH, BNP, CMP, T7 #### [facility] [address] [address] [address] Suzie Brooks PLT 278 103/ul Normal 150-450 [facility] Comment on above: Performed By: #### U DINA, LIPID, TSH, BNP, CMP, T7 #### [facility] [address] [address] [address] Suzie Brooks RBC 5.52 106/ul Normal 4.70-6.10 [facility] Comment on above: Performed By: #### U DINA, LIPID, TSH, BNP, CMP, T7 #### [facility] [address] [address] [address] Suzie Brooks WBC 13.1 103/ul Critically high 4.0-11.0 [facility] Comment on above: Performed By: #### U DINA, LIPID, TSH, BNP, CMP, T7 #### [facility] [address] [place] [address] ABD/PELVIS WO CONon [...] RAFAEL GRAVES Date: 2021-11-05 11:46 Normal [facility] CULTURE URINEon 11-05-2021 CULTURE URINE Culture Observations : No growth Normal [facility] Comment on above: Performed By: #### M AG24 #### [facility] [address] [place] [address] Dr. Suzie Brooks ER URINE PROFILEon 2 Bilirubin Ql (U) Negative Normal NEGATIVE [facility] Comment on above: Performed By: #### C VDTBH #### [facility] [address] [place] [address] Dr. Suzie Brooks Clarity (U) CLEAR Normal CLEAR [facility] Comment on above: Performed By: #### C VDTBH #### [facility] [address] [place] [address] Dr. Suzie Brooks Color (U) DK. YELLOW Normal YELLOW [facility] Comment on above: Performed By: #### C VDTBH #### [facility] [address] [place] [address] Dr. Suzie ESTEBAN A micrscopic examina tion will be performed if indicated. Normal [facility] Comment on above: Performed By: #### C VDTBH #### [facility] [address] [place] [address] Dr. Suzie Brooks Glucose Ql (U) Negative Normal NEGATIVE [facility] Comment on above: Performed By: #### C VDTBH #### [facility] [address] [place] [address] Dr. Suzie Brooks Hemoglobin Ql (U) LARGE Abnormal NEGATIVE [facility] Comment on above: Performed By: #### C VDTBH #### [facility] [address] [place] [address] Dr. Suzie Brooks Ketones Ql (U) Negative Normal NEGATIVE [facility] Comment on above: Performed By: #### C VDTBH #### [facility] [address] [place] [address] Dr. Suzie Brooks LEUKOCYTES Negative Normal NEGATIVE [facility] Comment on above: Performed By: #### C VDTBH #### [facility] [address] [place] [address] Dr. Suzie Brooks Nitrite Ql (U) Negative Normal NEGATIVE [facility] Comment on above: Performed By: #### C VDTBH #### [facility] [address] [place] [address] Dr. Suzie Brooks pH (U) 5.0 [pH] Normal 5-9 [facility] Comment on above: Performed By: #### C VDTBH #### [facility] [address] [place] [address] Dr. Suzie Brooks Protein (U) [Mass/Vol] 100 mg/dL Abnormal NEGATIVE/ TRACE [facility] Comment on above: Performed By: #### C VDTBH #### [facility] [address] [place] [address] Dr. Suzie Brooks SPEC GRAVITY >=1.030 Abnormal 1.005-<=1.02 5 [facility] Comment on above: Performed By: #### C VDTBH #### [facility] [address] [place] [address] Dr. Suzie Brooks UR MICRO IND INDICATED Normal [facility] Comment on above: Performed By: #### C VDTBH #### [facility] [address] [place] [address] Dr. Suzie Brooks Urobilinogen Qn (U) 0.2 {Behzad'U}/dL Normal 0.2 - 1. 0 [facility] Comment on above: Performed By: #### C VDTB #### [facility] [address] [place] [address] Dr. Suzie Brooks PROF 14(COMP METB)on 022 Albumin [Mass/Vol] 3.9 g/dL Normal 3.4-5.0 [facility] Comment on above: Performed By: #### U DINA, LIPID, TSH, BNP, CMP, T7 #### [facility] [address] [place] [address] Dr. Suzie Brooks Albumin/Globulin [Mass ratio] 1.1 {ratio} Normal [facility] Comment on above: Performed By: #### U DINA, LIPID, TSH, BNP, CMP, T7 #### [facility] [address] [place] [address] Dr. Suzie Brooks ALP [Catalytic activity/Vol] 64 U/L Normal 46-116 [facility] Comment on above: Performed By: #### U DINA, LIPID, TSH, BNP, CMP, T7 #### [facility] [address] [place] [address] Dr. Suzie Brooks ALT [Catalytic activity/Vol] 57 U/L Normal 16-63 [facility] Comment on above: Performed By: #### U DINA, LIPID, TSH, BNP, CMP, T7 #### [facility] [address] [place] [address] Dr. Suzie Brooks Anion gap [Moles/Vol] 14.4 mmol/L Normal [facility] Comment on above: Performed By: #### U DINA, LIPID, TSH, BNP, CMP, T7 #### [facility] [address] [place] [address] Dr. Suzie Brooks AST [Catalytic activity/Vol] 51 U/L Critically high 15-37 [facility] Comment on above: Performed By: #### U DINA, LIPID, TSH, BNP, CMP, T7 #### [facility] [address] [address] [address] Suzie Brooks Bilirubin [Mass/Vol] 0.8 mg/dL Normal 0.2-1.3 [facility] Comment on above: Performed By: #### U DINA, LIPID, TSH, BNP, CMP, T7 #### [facility] [address] [address] [address] Suzie Brooks Calcium [Mass/Vol] 8.5 mg/dL Normal 8.5-10.1 [facility] Comment on above: Performed By: #### U DINA, LIPID, TSH, BNP, CMP, T7 #### [facility] [address] [address] [address] Suzie Brooks Chloride [Moles/Vol] 103 mmol/L Normal 98-107 [facility] Comment on above: Performed By: #### U DINA, LIPID, TSH, BNP, CMP, T7 #### [facility] [address] [address] [address] Suzie Brooks CO2 [Moles/Vol] 26.8 mmol/L Normal 22.0-30.0 [facility] Comment on above: Performed By: #### U DINA, LIPID, TSH, BNP, CMP, T7 #### [facility] [address] [address] [address] Suzie Brooks Creatinine [Mass/Vol] 0.98 mg/dL Normal 0.66-1.25 [facility] Comment on above: Performed By: #### U DINA, LIPID, TSH, BNP, CMP, T7 #### [facility] [address] [address] [address] Suzie Brooks EGFR-AF PRYDEINIG >60 Normal >=60 [facility] Comment on above: Performed By: #### U DINA, LIPID, TSH, BNP, CMP, T7 #### [facility] [address] [address] [address] Suzie Brooks EGFR-NON AF PRYDEINIG >60 Normal >=60 [facility] Comment on above: Performed By: #### U DINA, LIPID, TSH, BNP, CMP, T7 #### [facility] [address] [address] [address] Suzie Brooks Globulin (S) [Mass/Vol] 3.7 g/dL Normal [facility] Comment on above: Performed By: #### U DINA, LIPID, TSH, BNP, CMP, T7 #### [facility] [address] [address] [address] Suzie Brooks Glucose [Mass/Vol] 118 mg/dL Critically high 74-106 [facility] Comment on above: Performed By: #### U DINA, LIPID, TSH, BNP, CMP, T7 #### [facility] [address] [place] [address] Dr. Suzie Brooks Potassium [Moles/Vol] 4.2 mmol/L Normal 3.4-5.0 [facility] Comment on above: Performed By: #### U DINA, LIPID, TSH, BNP, CMP, T7 #### [facility] [address] [place] [address] Dr. Suzie Brooks Protein [Mass/Vol] 7.6 g/dL Normal 6.1-8.2 [facility] Comment on above: Performed By: #### U DINA, LIPID, TSH, BNP, CMP, T7 #### [facility] [address] [place] [address] Dr. Suzie Brooks Sodium [Moles/Vol] 140 mmol/L Normal 137-145 [facility] Comment on above: Performed By: #### U DINA, LIPID, TSH, BNP, CMP, T7 #### [facility] [address] [place] [address] Dr. Suzie Brooks Urea nitrogen [Mass/Vol] 14.0 mg/dL Normal 7.0-18.0 [facility] Comment on above: Performed By: #### U DIAN, LIPID, TSH, BNP, CMP, T7 #### [facility] [address] [place] [address] Dr. Suzie Brooks Urea nitrogen/Creatinine [Mass ratio] 14.3 mg/mg Normal [facility] Comment on above: Performed By: #### U DINA, LIPID, TSH, BNP, CMP, T7 #### [facility] [address] [address] [address] Suzie Brooks URINE MICROSCOPIC ONLYon BACTERIA MODERATE Abnormal NONE SEEN [facility] Comment on above: Performed By: #### C VDTBH #### [facility] [address] [place] [address] Dr. Suzie Brooks Bacteria identified Cx Nom (U) INDICATED Normal [facility] Comment on above: Performed By: #### C VDTBH #### [facility] [address] [place] [address] Dr. Suzie Brooks CAST SEEN Abnormal NONE SEEN [facility] Comment on above: Performed By: #### C VDTBH #### [facility] [address] [place] [address] Dr. Suzie Brooks Crystals LM Nom (Urine sed) NONE SEEN Normal NONE SEEN [facility] Comment on above: Performed By: #### C VDTBH #### [facility] [address] [place] [address] Dr. Suzie Brooks Epithelial cells LM Ql (Urine sed) RARE Normal NONE SEEN /RARE [facility] Comment on above: Performed By: #### C VDTBH #### [facility] [address] [place] [address] Dr. Suzie Brooks HYALINE CAST RARE Normal [facility] Comment on above: Performed By: #### C VDTBH #### [facility] [address] [place] [address] Dr. Suzie Brooks MUCOUS NONE SEEN Normal NONE SEEN [facility] Comment on above: Performed By: #### C VDTBH #### [facility] [address] [place] [address] Dr. Suzie Brooks RBC (U) [#/Vol] /uL Abnormal 0-2 [facility] Comment on above: Performed By: #### C VDTBH #### [facility] [address] [place] [address] Dr. Suzie Brooks WBC NONE SEEN Normal NONE SEEN [facility] Comment on above: Performed By: #### C VDTBH #### [facility] [address] [address] [address] Suzie Brooks XR KUB 1 VIEWon [...] BEHZAD CARRASQUILLO Date: 2021-11-01 12:07 Normal [facility] CBC AUTO DIFFon 10-26-2021 BASO # 0.1 103/ul Normal 0.0-0.1 [facility] Comment on above: Performed By: #### U DINA, LIPID, TSH, BNP, CMP, T7 #### [facility] [address] [address] [address] Suzie Brooks Basophils/100 WBC (Bld) 0.7 % Normal 0.2-2.0 [facility] Comment on above: Performed By: #### U DINA, LIPID, TSH, BNP, CMP, T7 #### [facility] [address] [address] [address] Suzie Brooks EO # 0.2 103/ul Normal 0.0-0.7 [facility] Comment on above: Performed By: #### U DINA, LIPID, TSH, BNP, CMP, T7 #### [facility] [address] [address] [address] Suzie Brooks Eosinophils/100 WBC (Bld) 1.5 % Normal 0.9-7.0 [facility] Comment on above: Performed By: #### U DINA, LIPID, TSH, BNP, CMP, T7 #### [facility] [address] [address] [address] Suzie Brooks Erythrocyte distribution width (RBC) [Ratio] 13.9 % Normal 11.0-15.0 [facility] Comment on above: Performed By: #### U DINA, LIPID, TSH, BNP, CMP, T7 #### [facility] [address] [place] [address] Dr. Suzie Brooks Hematocrit (Bld) [Volume fraction] 47.5 % Normal 42.0-54.0 [facility] Comment on above: Performed By: #### U DINA, LIPID, TSH, BNP, CMP, T7 #### [facility] [address] [place] [address] Dr. Suzie Brooks Hemoglobin (Bld) [Mass/Vol] 15.5 g/dL Normal 14.0-18.0 [facility] Comment on above: Performed By: #### U DINA, LIPID, TSH, BNP, CMP, T7 #### [facility] [address] [place] [address] Dr. Suzie Brooks IG # 0.06 10e3/ul Critically high 0.00-0.03 [facility] Comment on above: Performed By: #### U DINA, LIPID, TSH, BNP, CMP, T7 #### [facility] [address] [place] [address] Dr. Suzie Brooks IG % 0.5 % Normal 0.0-0.5 [facility] Comment on above: Performed By: #### U DINA, LIPID, TSH, BNP, CMP, T7 #### [facility] [address] [place] [address] Dr. Suzie Brooks LYMPH # 2.6 103/ul Normal 1.2-3.8 [facility] Comment on above: Performed By: #### U DINA, LIPID, TSH, BNP, CMP, T7 #### [facility] [address] [place] [address] Dr. Suzie Brooks Lymphocytes/100 WBC (Bld) 23.1 % Normal 20.5-60.0 [facility] Comment on above: Performed By: #### U DINA, LIPID, TSH, BNP, CMP, T7 #### [facility] [address] [place] [address] Dr. Suzie Brooks MANUAL DIFF REQ NO Normal [facility] Comment on above: Performed By: #### U DINA, LIPID, TSH, BNP, CMP, T7 #### [facility] [address] [place] [address] Dr. Suzie Brooks MCH (RBC) [Entitic mass] 28.9 pg Normal 25.9-34.0 [facility] Comment on above: Performed By: #### U DINA, LIPID, TSH, BNP, CMP, T7 #### [facility] [address] [place] [address] Dr. Suzie Brooks MCHC (RBC) [Mass/Vol] 32.6 g/dL Normal 29.9-35.2 [facility] Comment on above: Performed By: #### U DINA, LIPID, TSH, BNP, CMP, T7 #### [facility] [address] [place] [address] Dr. Suzie Brooks MCV (RBC) [Entitic vol] 88.5 fL Normal 80.0-94.0 [facility] Comment on above: Performed By: #### U DINA, LIPID, TSH, BNP, CMP, T7 #### [facility] [address] [place] [address] Dr. Suzie Brooks MONO # 0.9 103/ul Critically high 0.3-0.8 [facility] Comment on above: Performed By: #### U DINA, LIPID, TSH, BNP, CMP, T7 #### [facility] [address] [place] [address] Dr. Suzie Brooks Monocytes/100 WBC (Bld) 7.9 % Normal 1.7-12.0 [facility] Comment on above: Performed By: #### U DINA, LIPID, TSH, BNP, CMP, T7 #### [facility] [address] [place] [address] Dr. Suzie Brooks NEUT # 7.4 103/ul Critically high 1.4-6.5 [facility] Comment on above: Performed By: #### U DINA, LIPID, TSH, BNP, CMP, T7 #### [facility] [address] [place] [address] Dr. Suzie Brooks Neutrophils/100 WBC (Bld) 66.3 % Normal 43.0-75.0 [facility] Comment on above: Performed By: #### U DINA, LIPID, TSH, BNP, CMP, T7 #### [facility] [address] [address] [address] Suzie Brooks Platelet mean volume (Bld) [Entitic vol] 9.6 fL Normal 9.5-13.5 [facility] Comment on above: Performed By: #### U DINA, LIPID, TSH, BNP, CMP, T7 #### [facility] [address] [address] [address] Suzie Brooks PLT 252 103/ul Normal 150-450 [facility] Comment on above: Performed By: #### U DINA, LIPID, TSH, BNP, CMP, T7 #### [facility] [address] [address] [address] Suzie Brooks RBC 5.37 106/ul Normal 4.70-6.10 [facility] Comment on above: Performed By: #### U DINA, LIPID, TSH, BNP, CMP, T7 #### [facility] [address] [address] [address] Suzie Brooks WBC 11.2 103/ul Critically high 4.0-11.0 [facility] Comment on above: Performed By: #### U DINA, LIPID, TSH, BNP, CMP, T7 #### [facility] [address] [address] [address] Suzie Brooks [facility]09 SARS-CoV-2 (COVID-19) RNA SUKHJINDER+probe Ql (Unsp spec) Not detected Normal NOT DETECTED [facility] Comment on above: Result Comment: This test is not yet approved or cleared by the [place] FDA. When there are no FDA-approved or cleared tests available, and other criteria are met, FDA can make tests available under an emergency access mechanism called an Emergency Use Authorization (EUA). The EUA for this test is supported by the [place] of Health and Human Service's (HHS's) declaration [...] DINA, LIPID, TSH, BNP, CMP, T7 #### [facility] [address] [address] [address] Suzie Brooks PROF CHEM 8 (BAS METB)on Anion gap [Moles/Vol] 7.7 mmol/L Normal [facility] Comment on above: Performed By: #### C VDTBH #### [facility] [address] [place] [address] Dr. Suzie Brooks Calcium [Mass/Vol] 8.6 mg/dL Normal 8.5-10.1 [facility] Comment on above: Performed By: #### C VDTBH #### [facility] [address] [address] [address] Suzie Brooks Chloride [Moles/Vol] 104 mmol/L Normal 98-107 [facility] Comment on above: Performed By: #### C VDTBH #### [facility] [address] [place] [address] Dr. Suzie Brooks CO2 [Moles/Vol] 31.8 mmol/L Critically high 22.0-30.0 [facility] Comment on above: Performed By: #### C VDTBH #### [facility] [address] [place] [address] Dr. Suzie Brooks Creatinine [Mass/Vol] 0.99 mg/dL Normal 0.66-1.25 [facility] Comment on above: Performed By: #### C VDTBH #### [facility] [address] [place] [address] Dr. Suzie Brooks EGFR-AF PRYDEINIG >60 Normal >=60 [facility] Comment on above: Performed By: #### C VDTBH #### [facility] [address] [address] [address] Suzie Brooks EGFR-NON AF PRYDEINIG >60 Normal >=60 [facility] Comment on above: Performed By: #### C VDTBH #### [facility] [address] [address] [address] Suzie Brooks Glucose [Mass/Vol] 94 mg/dL Normal 74-106 [facility] Comment on above: Performed By: #### C VDTBH #### [facility] [address] [address] [address] Suzie Brooks Potassium [Moles/Vol] 4.5 mmol/L Normal 3.4-5.0 [facility] Comment on above: Performed By: #### C VDTBH #### [facility] [address] [place] [address] Dr. Suzie Brooks Sodium [Moles/Vol] 139 mmol/L Normal 137-145 [facility] Comment on above: Performed By: #### C VDTBH #### [facility] [address] [address] [address] Suzie Brooks Urea nitrogen [Mass/Vol] 12.0 mg/dL Normal 7.0-18.0 [facility] Comment on above: Performed By: #### C VDTBH #### [facility] [address] [address] [address] Suzie Brooks Urea nitrogen/Creatinine [Mass ratio] 12.1 mg/mg Normal [facility] Comment on above: Performed By: #### C VDTBH #### [facility] [address] [address] [address] Suzie Brooks PROTIMEon 10-26-2021 INR Coag (PPP) [Relative time] 0.99 {INR} Normal [facility] Comment on above: Performed By: #### C VDTBH #### [facility] [address] [place] [address] Dr. Suzie Brooks INR GUIDELINES SEE BELOW Normal [facility] Comment on above: Result Comment: TOMMY RED INR: 2.0 - 3.0 CONDITIONS NOT LISTED BELOW 2.5 - 3.5 FOR PROSTHETIC HEART VALVE REPLACEMENT 2.5 - 3.5 RECURRENT THROMBOSIS Performed By: #### C VDTBH #### [facility] [address] [place] [address] Dr. Suzie Brooks PT Coag (PPP) [Time] 10.7 s Normal 9.0-11.6 [facility] Comment on above: Performed By: #### C VDTBH #### [facility] [address] [place] [address] Dr. Suzie Brooks PTTon 10-26-2021 aPTT Coag (Bld) [Time] 26.4 s Normal 22.3-36.2 [facility] Comment on above: Performed By: #### C VDTBH #### [facility] [address] [place] [address] Dr. Suzie Brooks XR KUB 1 VIEWon [...] by: RAFAEL GRAVES Date: 2021-10-17 13:26 Normal [facility] Vital Signs Date Time Vital Sign Value Performing Clinician Dario mcdonough 04-11-2023 11:55-0400 Blood Pressure Location Miki ZENG [facility] 04-11-2023 11:55-0400 Diastolic blood pressure 76 mm[Hg] Miki ZENG [facility] 04-11-2023 11:55-0400 Heart rate 80 /min Miki ZENG [facility] 04-11-2023 11:55-0400 Respiratory rate 16 /min Miki ZENG [facility] 04-11-2023 11:55-0400 Systolic blood pressure 134 mm[Hg] Miki ZENG [facility] 02-25-2022 14:20-0400 Blood Pressure Location Mikikimberly ZENG [facility] 02-25-2022 14:20-0400 Diastolic blood pressure 100 mm[Hg] Miki ZENG [facility] 02-25-2022 14:20-0400 Heart rate 86 /min Miki ZENG [facility] 02-25-2022 14:20-0400 Respiratory rate 16 /min Miki ZENG [facility] 02-25-2022 14:20-0400 Systolic blood pressure 155 mm[Hg] Miki ZENG [facility] Encounters Encounter Date Encounter Type Care Provider Facility Start: 04-16-2024 ambulatory Miki Muhammadi ty:[facility] [place] Start: 04-11-2023 End: 04-12-2023 ambulatory Miki ZENG Facility:[facility] [place] Start: 04-11-2023 End: 04-11-2023 Patient encounter procedure Miki ZENG [facility] Start: 08-14-[address] MARIELLE LERMA Facility :[facility] Start: 08-13-[address] MARIELLE LERMA Facility :[facility] Start: 07-26-2022 End: 07-27-[address] MARIELLE LERMA Facility:[facility] Start: 07-18-2022 End: 07-19-[address] MIKI ZENG Facility:[facility] Start: 05-15-2022 End: 05-16-[address] MARIELLE LERMA Facility:[facility] Start: 02-25-2022 End: 02-25-2022 Patient encounter procedure Miki ZENG [facility] Start: 02-18-2022 End: 02-18-[address] [...] encounter procedure MD Marielle Lerma Work Phone: [facility] Start: 11-12-2021 End: 11-13-[address] MIKI ZENG Facility:[facility] Start: 11-06-2021 End: 11-07-[address] MARIELLE LERMA Facility:[facility] Start: 11-05-2021 End: 11-05-[address] MARIELLE LERMA Facility:[facility] Start: 11-01-2021 End: 11-01-[address] MIKI ZENG Facility:[facility] Start: 10-31-2021 Encounter for preprocedural cardiovascular examination DR MIKI ZENG [facility] Start: 10-30-[address] MIKI ZENG Facil ity:[facility] Start: 10-26-2021 End: 03-19-[address] MIKI ZENG Facility:[facility] Start: 10-26-2021 End: 10-27-2021 Encounter for preprocedural cardiovascular examination DR MIKI ZENG Facility:[facility] Start: 10-17-2021 End: 10-18-[address] MIKI EZNG Facility:[facility] Procedures Date Procedure Procedure Detail Performing Clinician Start: 05-15-[address] JHONATAN ZENG Comment on above: Performed By: #### U DINA, LIPID, TSH, BNP, CMP, T7 #### [facility] [address] [place] [address] Dr. Suzie Brooks Start: 11-21-2021 Cystoscopy Miki VINCENT Start: 11-06-2021 Cystoscopy Miki VINCENT Start: 11-08-2013 Colonoscopy Miki VINCENT Comment on above: normal Arthroplasty of knee Miki ZENG Comment on above: right Arthroscopic knee operation Miki ZENG Arthroscopic knee operation Miki ZENG Basal cell carcinoma (morphologic abnormality) Miki ZENG Lithotripsy Miki ZENG Reconstruction of nose Yoannamiller jael THOR Repair of musculoten dinous cuff of shoulder Miki ZENG Repair of umbilical hernia P atrick THOR Wide excision Miki ZENG Comment on above: basal cell CA- LLE Immunizations Immunization Date Immunization Notes Care Provider Fa cility 05-31-2022 SARS-CoV-2 (COVID-19 ) [id number] Miki THOR [facility] Comment on above: Result Comment: 2022: [id number] 12-22-2021 SARS-CoV-2 (COVID-19 ) mRNA-1273 vaccine Miki ZENG [facility] 06-05-2021 SARS-CoV-2 (COVID-19 ) mRNA-1273 vaccine Miki ZENG [facility] 05-29-2021 influenza virus vaccine, unspecified formulation Miki ZENG [facility] 05-15-2021 influenza virus vaccine, unspecified formulation Miki ZENG [facility] 11-09-2020 SARS-CoV-2 (COVID-19 ) mRNA-1273 vaccine Miki ZENG [facility] 11-01-2020 SARS-CoV-2 (COVID-19 ) mRNA-1273 vaccine Miki ZENG [facility] 10-09-2020 SARS-CoV-2 (COVID-19 ) mRNA-1273 vaccine Miki ZENG [facility] 10-05-2020 SARS-CoV-2 (COVID-19 ) mRNA-1273 vaccine Miki ZENG [facility] 05-17-2020 influenza virus vaccine, unspecified formulation Miki ZENG [facility] 06-24-2019 tetanus toxoid, redu roberto carlos diphtheria toxoid, and acellular pertussis vaccine, adsorbed Mikikimberly ZENG [facility] 05-25-2019 influenza virus vaccine, unspecified formulation Miki ZENG [facility] 05-22-2017 influenza virus vaccine, unspecified formulation Mikikimberly ZENG [facility] 05-22-2017 pneumococcal conjuga te vaccine, 13 valent Miki ZENG [facility] 05-30-2016 influenza, unspecifi ed formulation Miki ZENG [facility] 11-01-2013 zoster vaccine, live Mikikimberly ZENG [facility] 12-18-2005 hepatitis A vaccine, adult dosage Miki ZENG [facility] 10-18-2005 hepatitis B vaccine, pediatric or pediatric/adolescent dosage Miki ZENG [facility] 10-18-2005 tetanus and diphther ia toxoids, adsorbed, preservative free, for adult use (2 Lf of tetanus toxoid and 2 Lf of diphtheria toxoid) Miki ZENG [facility] 07-26-2005 hepatitis B vaccine, pediatric or pediatric/adolescent dosage Miki ZENG [facility] 06-20-2005 hepatitis A vaccine, adult dosage Miki ZENG [facility] 06-20-2005 hepatitis B vaccine, pediatric or pediatric/adolescent dosage Miki ZENG [facility] Payers Date Payer Category Payer Medicare [id number] Private Health Insurance [id number] 1950 Unknown [id number] 2.16.84 0.1.419415.3.579.2.593 1952 Unknown [id number] 2.16.84 0.1.324370.3.579.2.593 1952 Unknown [id number] 2.16.84 0.1.275542.3.579.2.593 1952 Unknown [id number] 2.16.84 0.1.164408.3.579.2.593 1952 Unknown [id number] 2.16.84 0.1.543430.3.579.2.593 1952 Unknown [id number] 2.16.84 0.1.320935.3.579.2.593 1952 Unknown [id number] 2.16.84 0.1.472037.3.579.2.593 1952 Unknown [id number] 2.16.84 0.1.617533.3.579.2.593 1952 Unknown [id number] 2.16.84 0.1.587831.3.579.2.593 1952 Unknown [id number] 2.16.84 0.1.630904.3.579.2.593 1952 Unknown [id number] 2.16.84 0.1.919030.3.579.2.593 1952 Unknown [id number] 2.16.84 0.1.374681.3.579.2.593 1952 Unknown [id number] 2.16.84 0.1.687984.3.579.2.593 1952 Unknown [id number] 2.16.84 0.1.922666.3.579.2.593 1952 Unknown [id number] 2.16.84 0.1.081876.3.579.2.593 1952 Unknown [id number] 2.16.84 0.1.030581.3.579.2.593 1952 Unknown [id number] 2.16.84 0.1.791523.3.579.2.593 1952 Unknown [id number] 2.16.84 0.1.896221.3.579.2.593 1952 Unknown [id number] 2.16.8 40.1.969356.3.579.2.727 1952 Unknown [id number] 2.16.8 40.1.335130.3.579.2.727 Self-pay Self Pay [id number] Social History Date Type Detail Facility Start: 10-19-2019 End: 04-11-2023 Tobacco smoking status [facility] Ex-smoker (finding) [facility] Start: 1950 Sex Assigned At Male [facility] Tobacco smoking status Never [facility] Sex Assigned At Male [facility] Functional Status Date Assessment Result Facility 04-11-2023 Functional Status N/A [facility] 02-25-2022 Functional Status N/A [facility] Hospital Discharge instructions 04-11-2023 Note Date [...] include: ?8 oz (237 mL) of milk, krbghft-lbrjjwhknscp-vndjz milk, and calcium-fortifiedfruit juice. Calcium-fortified means that [...] ?Spinach (cooked), rhubarb, beets, sweet potatoes, and Peruvian chard. ?Peanuts. ?Potato chips, jamaican fries, and baked potatoes with skin on. ?Nuts and nut products. ?Chocolate. If you regularly take a diuretic medicine, make sure to eat at least 1 or 2 servings of fruits or vegetables that are high in potassium each day. These include: ?Avocado. ?Banana. ?Tarrant, prune, carrot, or tomato juice. ?Baked potato. [...] magnesium, fish oil, or vitamin B6. Take ppsd-eil-wimbixw and prescription medicines only as told by [...] Casseroles. Pizza. Lasagna. Frozen meals. Potato chips. Romanian fries. The items listed above may not [...] provider. Document Revised: 04/08/2022 Document Reviewed: 04/08/2022 [employer] Patient Education 2022 [employer]. Follow Up Care 08/19/2022 10:39:03 With:THOR BATISTA, Miki Cedeño, URL Address: [facility] [address], [place] [address]- When:Within 1 Year(s) [facility] Discharge instructions 02-25-2022 Note Date [...] 07/28/2006 Document Revised: 04/16/2019 Document Reviewed: 06/27/2017 [employer] Patient Education 2020 [employer]. 02/25/2022 15:28:39 Kidney Stones, Yxsi-yo-Qvyz Kidney Stones Kidney stones are rock-like masses [...] Follow these instructions at home: Medicines Take eplm-plb-ohrjjfc and prescription medicines only as told by [...] 01/13/2009 Document Revised: 12/14/2019 Document Reviewed: 12/14/2019 [employer] Patient Education 2020 [employer]. Follow Up Care 11/21/2021 12:48:10 With:THOR BATISTA, Miki Cedeño, URL Address: [facility] [address], [place] [address]- [phone] When:Within 4 Month(s) Comments:4 mo fu with [facility] Evaluation + Plan note 02-25-2022 Note Date & Type Note Facility 02-25-2022 Evaluation + Plan note Diagnostic Tests PendingPSA Total 02/25/22Creatinine 02/25/22 [facility] Evaluation + Plan note Note Date & Type Note Facility Evaluation + Plan note Future Appointments Appointment Date:04/16/2024 11:00:00 AM Scheduled Provider:Miki ZENG MD Location:[facility] Appointment Type:URO Office Visit [facility] Evaluation note Note Date & Type Note Facility Evaluation note No assessment information availa [facility] Work Phone: Hospital course Narrative Note Date & Type Note Facility Hospital course Narrative No data available for this section [facility] Progress note Note Date & Type Note Facility Progress note No data available for this section [facility] Chief Complaint and Reason for Visit [...] section and content) DATE CREATED AUTHOR 11/22/2021 [facility] DATE CREATED AUTHOR AUTHOR'S ORGANIZ ATION 08/13/2022 [facility] DATE CREATED AUTHOR AUTHOR'S ORGANIZ ATION 10/12/2023 [facility] FOR RECORDS PERTAINING TO PATIENTS WHO [...] BE BASED ON THE PRIMARY CLINICAL RECORDS. [facility] [employer] [facility] provides no warranty or guarantee of the accuracy or completeness of information in this document.
== END 2024-03-31 10:43 | disposition home or self-care (01) ==
LOC: LAB 10:44
PROVIDERS: PCP Family Medicine; Visit Provider Family Medicine
DX: J20.9 Acute bronchitis, unspecified (principal)
CPT/HCPCS: 71046; 87070; 87205

== ENCOUNTER 2024-04-15 14:14 | Emergency (ER) | payer MEDICARE, OTHER, SELFPAY ==
[2024-04-15] VITALS (8 sets, daily range): BP systolic 149–169; BP diastolic 71–89; PULSE 50–59; TEMP 36.9–37.1; O2SAT 93–97; BMI 38.0
--- OUTSIDE RECORDS SUMMARY | 2024-04-15 14:47 | XMS_ITS | CCD ---
Author Organization [facility] CliniSyal Care Team Providers Care Stone Banker Name Role Phone MD Marielle Lerma Primary Care Provider [phone] MD Miki Zeng Attending Provider Marielle Lerma Primary Care Physician THOR, DR SWEET Admitting Unavailable THOR, DR SWEET Attending Unavailable HOY, DR PALOMARES Primary Care Unavailable THOR, DR SWEET Consulting Unavailable STONEYEBDMITRIY, DR BEHZAD Cedeño Consulting Unavailable ASHLEY, DR PALOMARES Primary Care Unavailable MAYCOY, DR PALOMARES Admitting Unavailable HOY, DR PALOMARES Attending Unavailable HOY, DR PALOMARES Consulting Unavailable STONEYEBDMITRIY, DR BEHZAD Cedeño Consulting Unavailable LATONYA AMADOR Consulting Unavailable THOR, DR SWEET Admitting Unavailable ZENG, DR SWEET Attending Unavailable MAYCOY, DR PALOMARES [...] Admitting Unavailable ZENG, DR SWEET Attending Unavailable MAYCOY, DR PALOMARES Primary Care Unavailable ASHLEY, DR PALOMARES Primary Care Unavailable THOR, DR SWEET Consulting Unavailable THOR, DR SWEET Admitting Unavailable THOR, DR SWEET Attending Unavailable ZIABIEL, DR BEHZAD Cedeño Consulting Unavailable MAYCOY, DR PALOMARES Admitting Unavailable HOY, DR PALOMARES Attending Unavailable HOY, DR PALOMARES Primary Care Unavailable MAYCOY, DR PALOMARES Consulting Unavailable THOR, DR SWEET Admitting Unavailable THOR, DR SWEET Attending Unavailable MAYCOY, DR PALOMARES Primary Care Unavailable THOR, DR SWEET Consulting Unavailable CAYUGA, DR RAFAEL Pizano Consulting Unavailable THOR, DR [...] Unavailable LUE ., NADEGE Tineo Consulting Unavailable NARDINIBEHZAD Consulting Unavailable MAYCOY, DR PALOMARES Primary Care Unavailable HOY, DR PALOMARES Consulting Unavailable NADERER, DR ERMA Garcia Admitting Unavailable NADERER, DR ERMA Garcia Attending Unavailable NADERER, DR ERMA Garcia Consulting Unavailable ANNITA, RUDDY Consulting Unavailable LUE ., NADEGE Tineo Consulting Unavailable GINNY, BEHZAD Consulting Unavailable THOR, DR SWEET Admitting Unavailable THOR, DR SWEET Attending Unavailable ASHLEY, DR PALOMARES Primary Care Unavailable THOR, DR SWEET Consulting Unavailable ASHLEY, DR PALOMARES Primary Care Unavailable RUDDY ARIZA Admitting Unavailable RUDDY ARIZA Attending Unavailable ANNITA, RUDDY Consulting Unavailable ACACIA CAST Consulting Unavailable TRACEY ABDULLAHI Attending Unavailable Miki ZENG Attending Unavailable Allergies Allergy Classification Reported Allergen(s) Allergy Type Date of Onset Reaction(s) Facility (1 source) No Known Medication Allergies; Translations: [No Known Medication Allergies] Propensity to adverse reactions (disorder) [facility] Repository Medications Current Medications Medication Drug Class(es) [...] mouth every four to six hours Hydrocodone-Acetaminophen ([place]) 5-325 mg tablet Active 1 TAB PO [...] Daily, # 30 tab(s), Refills(s) 11, Pharmacy: [id number], 180, cm, 02/25/22 14:22:00 EDT, Height/Length [...] Ordered Start: 01-02-2018 [facility] Aspirin (Aspir-81) 81 mg Tablet,Delayed [...] Ordered Start: 02-25-2022 take [address] capsule [address] [facility] once daily hydrochlorothiazide 12.5 mg Cap 12.5 mg = 1 cap(s), Oral, Daily, # 30 cap(s), Refills(s) 6, Pharmacy: [facility], 180, cm, 02/25/22 14:22:00 EDT, Height/Length [...] PO Twice daily January 02, 2018 9:35am Hthlwlnq-Gts-Vk-Lycopen-Lute in (Centrum Silver) 0.4-300-250 mg-mcg-mcg Tablet (1 source) Start: 09-02-2019 take 1 tablet by mouth once daily Eypusccj-Dsc-Nx-Lycopen-Lutein (Centrum Silver) 0.4-300-250 mg-mcg-mcg Tablet Active 1 [...] tab(s), Oral, BID, 60 tab(s), Refill(s) 11, [id number], 180, cm, 04/11/23 11:56:00 EDT, Height/Length [...] day(s), # 90 tab(s), Refills(s) 11, Pharmacy: [facility], 180, cm, 02/25/22 14:22:00 EDT, Height/Length [...] Coronary atherosclerosis; Translations: [Atherosclerotic heart disease of [place] coronary artery without angina pectoris] Onset: 11-05-2021 [...] Onset: 08-01-2022 Chronic Other 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) jail (current) use of 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; 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] Onset: 08-01-2022 Episodic Other 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) Other half-way (current) 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; Translations: [OTH CNC OPERATOR PROGRAMMER CURRENT DRUG THERAPY] Onset: 08-01-2022 Episodic Other [...] Onset: 02-18-2022 Episodic Other 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) jail (current) use of anticoagulants; Translations: [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 Suzie Brooks Basophils/100 WBC (Bld) 0.5 % Normal 0.2-2.0 [facility] Comment on above: Performed By: #### U DINA, LIPID, TSH, BNP, CMP, T7 #### [facility] [address] [place] [address] Dr. Suzie Brooks EO # 0.4 103/ul Normal 0.0-0.7 [facility] Comment on above: Performed By: #### U DINA, LIPID, TSH, BNP, CMP, T7 #### [facility] [address] [place] [address] Dr. Suzie Brooks Eosinophils/100 WBC (Bld) 3.3 % Normal 0.9-7.0 [facility] Comment on above: Performed By: #### U DINA, LIPID, TSH, BNP, CMP, T7 #### [facility] [address] [place] [address] Dr. Suzie rBooks Erythrocyte distribution width (RBC) [Ratio] 14.6 % Normal 11.0-15.0 [facility] Comment on above: Performed By: #### U DINA, LIPID, TSH, BNP, CMP, T7 #### [facility] [address] [place] [address] Dr. Suzie Brooks Hematocrit (Bld) [Volume fraction] 42.0 % Normal 42.0-54.0 [facility] Comment on above: Performed By: #### U DINA, LIPID, TSH, BNP, CMP, T7 #### [facility] [address] [place] [address] Dr. Suzie Brooks Hemoglobin (Bld) [Mass/Vol] 14.1 g/dL Normal 14.0-18.0 [facility] Comment on above: Performed By: #### U DINA, LIPID, TSH, BNP, CMP, T7 #### [facility] [address] [place] [address] Dr. Suzie Brooks IG # 0.03 10e3/ul Normal 0.00-0.03 [facility] Comment on above: Performed By: #### U DINA, LIPID, TSH, BNP, CMP, T7 #### [facility] [address] [place] [address] Dr. Suzie Brooks IG % 0.3 % Normal 0.0-0.5 [facility] Comment on above: Performed By: #### U DINA, LIPID, TSH, BNP, CMP, T7 #### [facility] [address] [place] [address] Dr. Suzie Brooks LYMPH # 3.1 103/ul Normal 1.2-3.8 [facility] Comment on above: Performed By: #### U DINA, LIPID, TSH, BNP, CMP, T7 #### [facility] [address] [place] [address] Dr. Suzie Brooks Lymphocytes/100 WBC (Bld) 28.2 % Normal 20.5-60.0 [facility] Comment on above: Performed By: #### U DINA, LIPID, TSH, BNP, CMP, T7 #### [facility] [address] [place] [address] Dr. Suzie Brooks MANUAL DIFF REQ NO Normal [facility] Comment on above: Performed By: #### U DINA, LIPID, TSH, BNP, CMP, T7 #### [facility] [address] [place] [address] Dr. Suzie Brooks MCH (RBC) [Entitic mass] 28.5 pg Normal 25.9-34.0 [facility] Comment on above: Performed By: #### U DINA, LIPID, TSH, BNP, CMP, T7 #### [facility] [address] [place] [address] Dr. Suzie Brooks MCHC (RBC) [Mass/Vol] 33.6 g/dL Normal 29.9-35.2 [facility] Comment on above: Performed By: #### U DINA, LIPID, TSH, BNP, CMP, T7 #### [facility] [address] [address] [address] Suzie Brooks MCV (RBC) [Entitic vol] 85.0 fL Normal 80.0-94.0 [facility] Comment on above: Performed By: #### U DINA, LIPID, TSH, BNP, CMP, T7 #### [facility] [address] [place] [address] Dr. Suzie Brooks MONO # 0.8 103/ul Normal 0.3-0.8 [facility] Comment on above: Performed By: #### U DINA, LIPID, TSH, BNP, CMP, T7 #### [facility] [address] [place] [address] Dr. Suzie Brooks Monocytes/100 WBC (Bld) 7.2 % Normal 1.7-12.0 [facility] Comment on above: Performed By: #### U DINA, LIPID, TSH, BNP, CMP, T7 #### [facility] [address] [place] [address] Dr. Suzie Brooks NEUT # 6.7 103/ul Critically high 1.4-6.5 [facility] Comment on above: Performed By: #### U DINA, LIPID, TSH, BNP, CMP, T7 #### [facility] [address] [place] [address] Dr. Suzie Brooks Neutrophils/100 WBC (Bld) 60.5 % Normal 43.0-75.0 [facility] Comment on above: Performed By: #### U DINA, LIPID, TSH, BNP, CMP, T7 #### [facility] [address] [place] [address] Dr. Suzie Brooks Platelet mean volume (Bld) [Entitic vol] 9.6 fL Normal 9.5-13.5 [facility] Comment on above: Performed By: #### U DINA, LIPID, TSH, BNP, CMP, T7 #### [facility] [address] [place] [address] Dr. Suzie Brooks PLT 266 103/ul Normal 150-450 [facility] Comment on above: Performed By: #### U DINA, LIPID, TSH, BNP, CMP, T7 #### [facility] [address] [address] [address] Suzie Brooks RBC 4.94 106/ul Normal 4.70-6.10 [facility] Comment on above: Performed By: #### U DINA, LIPID, TSH, BNP, CMP, T7 #### [facility] [address] [place] [address] Dr. Suzie Brooks WBC 11.1 103/ul Critically high 4.0-11.0 [facility] Comment on above: Performed By: #### U DINA, LIPID, TSH, BNP, CMP, T7 #### [facility] [address] [place] [address] Dr. Suzie Brooks PROF 14(COMP METB)on 022 Albumin [Mass/Vol] 3.2 g/dL Critically low 3.4-5.0 [facility] Comment on above: Performed By: #### C VDTBH #### [facility] [address] [place] [address] Dr. Suzie Brooks Albumin/Globulin [Mass ratio] 0.9 {ratio} Normal [facility] Comment on above: Performed By: #### C VDTBH #### [facility] [address] [place] [address] Dr. Suzie Brooks ALP [Catalytic activity/Vol] 60 U/L Normal 46-116 [facility] Comment on above: Performed By: #### C VDTBH #### [facility] [address] [place] [address] Dr. Suzie Brooks ALT [Catalytic activity/Vol] 27 U/L Normal 16-63 [facility] Comment on above: Performed By: #### C VDTBH #### [facility] [address] [place] [address] Dr. Suzie Brooks Anion gap [Moles/Vol] 10.4 mmol/L Normal [facility] Comment on above: Performed By: #### C VDTBH #### [facility] [address] [place] [address] Dr. Suzie Brooks AST [Catalytic activity/Vol] 23 U/L Normal 15-37 [facility] Comment on above: Performed By: #### C VDTBH #### [facility] [address] [place] [address] Dr. Suzie Brooks Bilirubin [Mass/Vol] 0.4 mg/dL Normal 0.2-1.0 [facility] Comment on above: Performed By: #### C VDTBH #### [facility] [address] [place] [address] Dr. Suzie Brooks Calcium [Mass/Vol] 8.4 mg/dL Critically low 8.5-10.1 [facility] Comment on above: Performed By: #### C VDTBH #### [facility] [address] [place] [address] Dr. Suzie Brooks Chloride [Moles/Vol] 104 mmol/L Normal 98-107 [facility] Comment on above: Performed By: #### C VDTBH #### [facility] [address] [place] [address] Dr. Suzie Brooks CO2 [Moles/Vol] 26.1 mmol/L Normal 21.0-32.0 [facility] Comment on above: Performed By: #### C VDTBH #### [facility] [address] [place] [address] Dr. Suzie Brooks Creatinine [Mass/Vol] 0.90 mg/dL Normal 0.70-1.30 [facility] Comment on above: Performed By: #### C VDTBH #### [facility] [address] [place] [address] Dr. Suzie Brooks EGFR-AF DJIBOUTIAN >60 Normal >=60 [facility] Comment on above: Performed By: #### C VDTBH #### [facility] [address] [place] [address] Dr. Suzie Brokos EGFR-NON AF DJIBOUTIAN >60 Normal >=60 [facility] Comment on above: Performed By: #### C VDTBH #### [facility] [address] [place] [address] Dr. Suzie Brooks Globulin (S) [Mass/Vol] 3.4 g/dL Normal [facility] Comment on above: Performed By: #### C VDTBH #### [facility] [address] [address] [address] Suzie Brooks Glucose [Mass/Vol] 111 mg/dL Critically high 74-[address] [facility] Comment on above: Performed By: #### C VDTBH #### [facility] [address] [place] [address] Dr. Suzie Brooks Potassium [Moles/Vol] 3.5 mmol/L Normal 3.5-5.1 [facility] Comment on above: Performed By: #### C VDTBH #### [facility] [address] [place] [address] Dr. Suzie Brooks Protein [Mass/Vol] 6.6 g/dL Normal 6.4-8.2 [facility] Comment on above: Performed By: #### C VDTBH #### [facility] [address] [place] [address] Dr. Suzie Brooks Sodium [Moles/Vol] 137 mmol/L Normal 136-145 [facility] Comment on above: Performed By: #### C VDTBH #### [facility] [address] [place] [address] Dr. Suzie Brooks Urea nitrogen [Mass/Vol] 13.0 mg/dL Normal 7.0-18.0 [facility] Comment on above: Performed By: #### C VDTBH #### [facility] [address] [place] [address] Dr. Suzie Brooks Urea nitrogen/Creatinine [Mass ratio] 14.4 mg/mg Normal [facility] Comment on above: Performed By: #### C VDTBH #### [facility] [address] [place] [address] Dr. Suzie Brooks BNPon 07-26-2022 Natriuretic peptide B (Bld) [Mass/Vol] 118.0 pg/mL Normal <=900.0 [facility] Comment on above: Performed By: #### U DINA, LIPID, TSH, BNP, CMP, T7 #### [facility] [address] [place] [address] Dr. Suzie Brooks CARDIAC MJ 3-6on 2 CK [Catalytic activity/Vol] 240 U/L Normal 39-308 [facility] Comment on above: Performed By: #### U DINA, LIPID, TSH, BNP, CMP, T7 #### [facility] [address] [address] [address] Suzie Brooks CK.MB [Mass/Vol] 3.43 ng/mL Normal <=3.60 [facility] Comment on above: Performed By: #### U DINA, LIPID, TSH, BNP, CMP, T7 #### [facility] [address] [address] [address] Suzie Brooks HSTROP 8.6 pg/mL Normal 4.0-76.1 [facility] Comment on above: Result Comment: CUT- OFF POINTS HAVE BEEN ESTABLISHED BASED ON THE FOURTH UNIVERSAL DEFINITIONS OF MYOCARDIAL INFARCTION. THE UPPER REFERENCE LIMIT (URL) OF TROPONIN, DEFINED THE 99TH PERCENTILE OF cTnI DISTRIBUTION IN A REFERENCE POPULATION, HAS BEEN CONFIRMED THE DECISION THRESHOLD FOR MO DIAGNOSIS. Performed By: #### U DINA, LIPID, TSH, BNP, CMP, T7 #### [facility] [address] [place] [address] Dr. Suzie Brooks CK [Catalytic activity/Vol] 239 U/L Normal 39-308 [facility] Comment on above: Performed By: #### M AG24 #### [facility] [address] [address] [address] Suzie Brooks CK.MB [Mass/Vol] 2.93 ng/mL Normal <=3.60 [facility] Comment on above: Performed By: #### M AG24 #### [facility] [address] [place] [address] Dr. Suzie Brooks HSTROP 10.4 pg/mL Normal 4.0-76.1 [facility] Comment on above: Result Comment: CUT- OFF POINTS HAVE BEEN ESTABLISHED BASED ON THE FOURTH UNIVERSAL DEFINITIONS OF MYOCARDIAL INFARCTION. THE UPPER REFERENCE LIMIT (URL) OF TROPONIN, DEFINED THE 99TH PERCENTILE OF cTnI DISTRIBUTION IN A REFERENCE POPULATION, HAS BEEN CONFIRMED THE DECISION THRESHOLD FOR MO DIAGNOSIS. Performed By: #### M AG24 #### [facility] [address] [address] [address] Suzie Brooks CARDIAC MJ ADMITon 022 CK [Catalytic activity/Vol] 234 U/L Normal 39-308 [facility] Comment on above: Performed By: #### O X24HR #### [facility] [address] [place] [address] Dr. Suzie Brooks CK.MB [Mass/Vol] 3.37 ng/mL Normal <=3.60 [facility] Comment on above: Performed By: #### O X24HR #### [facility] [address] [place] [address] Dr. Suzie Brooks HSTROP 9.0 pg/mL Normal 4.0-76.1 [facility] Comment on above: Result Comment: CUT- OFF POINTS HAVE BEEN ESTABLISHED BASED ON THE FOURTH UNIVERSAL DEFINITIONS OF MYOCARDIAL INFARCTION. THE UPPER REFERENCE LIMIT (URL) OF TROPONIN, DEFINED THE 99TH PERCENTILE OF cTnI DISTRIBUTION IN A REFERENCE POPULATION, HAS BEEN CONFIRMED THE DECISION THRESHOLD FOR MO DIAGNOSIS. Performed By: #### O X24HR #### [facility] [address] [place] [address] Dr. Suzie Brooks EDIE 85 ng/mL Normal 16-96 [facility] Comment on above: Performed By: #### O X24HR #### [facility] [address] [place] [address] Dr. Suzie Brooks CBC AUTO DIFFon 07-26-2022 BASO # 0.1 103/ul Normal 0.0-0.1 [facility] Comment on above: Performed By: #### U DINA, LIPID, TSH, BNP, CMP, T7 #### [facility] [address] [place] [address] Dr. Suzie Brooks Basophils/100 WBC (Bld) 0.4 % Normal 0.2-2.0 [facility] Comment on above: Performed By: #### U DINA, LIPID, TSH, BNP, CMP, T7 #### [facility] [address] [place] [address] Dr. Suzie Brooks EO # 0.3 103/ul Normal 0.0-0.7 [facility] Comment on above: Performed By: #### U DINA, LIPID, TSH, BNP, CMP, T7 #### [facility] [address] [address] [address] Suzie Brooks Eosinophils/100 WBC (Bld) 2.5 % Normal 0.9-7.0 [facility] Comment on above: Performed By: #### U DINA, LIPID, TSH, BNP, CMP, T7 #### [facility] [address] [address] [address] Suzie Brooks Erythrocyte distribution width (RBC) [Ratio] 14.4 % Normal 11.0-15.0 [facility] Comment on above: Performed By: #### U DINA, LIPID, TSH, BNP, CMP, T7 #### [facility] [address] [place] [address] Dr. Suzie Brooks Hematocrit (Bld) [Volume fraction] 46.0 % Normal 42.0-54.0 [facility] Comment on above: Performed By: #### U DINA, LIPID, TSH, BNP, CMP, T7 #### [facility] [address] [place] [address] Dr. Suzie Brooks Hemoglobin (Bld) [Mass/Vol] 15.6 g/dL Normal 14.0-18.0 [facility] Comment on above: Performed By: #### U DINA, LIPID, TSH, BNP, CMP, T7 #### [facility] [address] [place] [address] Dr. Suzie Brooks IG # 0.07 10e3/ul Critically high 0.00-0.03 [facility] Comment on above: Performed By: #### U DINA, LIPID, TSH, BNP, CMP, T7 #### [facility] [address] [place] [address] Dr. Suzie Brooks IG % 0.6 % Critically high 0.0-0.5 [facility] Comment on above: Performed By: #### U DINA, LIPID, TSH, BNP, CMP, T7 #### [facility] [address] [place] [address] Dr. Suzie Brooks LYMPH # 2.9 103/ul Normal 1.2-3.8 [facility] Comment on above: Performed By: #### U DINA, LIPID, TSH, BNP, CMP, T7 #### [facility] [address] [address] [address] Suzie Brooks Lymphocytes/100 WBC (Bld) 24.2 % Normal 20.5-60.0 [facility] Comment on above: Performed By: #### U DINA, LIPID, TSH, BNP, CMP, T7 #### [facility] [address] [place] [address] Dr. Suzie Brooks MANUAL DIFF REQ NO Normal [facility] Comment on above: Performed By: #### U DINA, LIPID, TSH, BNP, CMP, T7 #### [facility] [address] [place] [address] Dr. Suzie Brooks MCH (RBC) [Entitic mass] 28.6 pg Normal 25.9-34.0 [facility] Comment on above: Performed By: #### U DINA, LIPID, TSH, BNP, CMP, T7 #### [facility] [address] [place] [address] Dr. Suzie Brooks MCHC (RBC) [Mass/Vol] 33.9 g/dL Normal 29.9-35.2 [facility] Comment on above: Performed By: #### U DINA, LIPID, TSH, BNP, CMP, T7 #### [facility] [address] [place] [address] Dr. Suzie Brooks MCV (RBC) [Entitic vol] 84.4 fL Normal 80.0-94.0 [facility] Comment on above: Performed By: #### U DINA, LIPID, TSH, BNP, CMP, T7 #### [facility] [address] [place] [address] Dr. Suzie Brooks MONO # 0.8 103/ul Normal 0.3-0.8 [facility] Comment on above: Performed By: #### U DINA, LIPID, TSH, BNP, CMP, T7 #### [facility] [address] [place] [address] Dr. Suzie Brooks Monocytes/100 WBC (Bld) 6.7 % Normal 1.7-12.0 [facility] Comment on above: Performed By: #### U DINA, LIPID, TSH, BNP, CMP, T7 #### [facility] [address] [address] [address] Suzie Brooks NEUT # 7.8 103/ul Critically high 1.4-6.5 [facility] Comment on above: Performed By: #### U DINA, LIPID, TSH, BNP, CMP, T7 #### [facility] [address] [address] [address] Suzie Brooks Neutrophils/100 WBC (Bld) 65.6 % Normal 43.0-75.0 [facility] Comment on above: Performed By: #### U DINA, LIPID, TSH, BNP, CMP, T7 #### [facility] [address] [address] [address] Suzie Brooks Platelet mean volume (Bld) [Entitic vol] 9.7 fL Normal 9.5-13.5 [facility] Comment on above: Performed By: #### U DINA, LIPID, TSH, BNP, CMP, T7 #### [facility] [address] [address] [address] Suzie Brooks PLT 289 103/ul Normal 150-450 [facility] Comment on above: Performed By: #### U DINA, LIPID, TSH, BNP, CMP, T7 #### [facility] [address] [address] [address] Suzie Brooks RBC 5.45 106/ul Normal 4.70-6.10 [facility] Comment on above: Performed By: #### U DINA, LIPID, TSH, BNP, CMP, T7 #### [facility] [address] [address] [address] Suzie Brooks WBC 11.9 103/ul Critically high 4.0-11.0 [facility] Comment on above: Performed By: #### U DINA, LIPID, TSH, BNP, CMP, T7 #### [facility] [address] [address] [address] Suzie Brooks CTA CHEST WO W CONon 022 CTA CHEST WO W CON EXAMINATION: [...] Date: 2022-07-26 11:59 Normal [facility] Covid-19 PCR (CVDTB)on 07-11 SARS-CoV-2 (COVID-19) RNA SUKHJINDER+probe Ql (Unsp spec) Not detected Normal NOT DETECTED [facility] Comment on above: Result Comment: When diagnostic [...] for this test is supported by the Research Professional of Health and Human Service's declaration that [...] TSH, BNP, CMP, T7 #### [facility] [address] [place], [place] [address] Dr. Suzie Brooks D-DIMERon 07-26-2022 D-DIMER 0.88 mg/L FEU Critically high <=0.59 [facility] Comment on above: Performed By: #### C VDTBH #### [facility] [address] [place], [place] [address] Dr. Suzie Brooks D-DIMER COMMENTS SEE BELOW Normal [facility] Comment on above: Result Comment: Incr [...] and generalized hospitalization. Performed By: #### C VDTB #### [facility] [id number] Suzie Brooks ECHOCARDIO M/2D COMPLETEon 1 09-26-2021 ECHOCARDIO M/2D COMPLETE Patient: TOM APARICIO Exam Date: 07/26/2022 : 1950 Gender:M Ordering : DR MARIELLE LERMA . Admission #: [id number] Family : Order #: [id number] CLICK HERE TO VIEW EXAM ECHOCARDIOGRAM REPORT [...] Rios M.D. on 07/26/2022 at 16:22 Normal [facility] PROF 14(COMP METB)on 022 Albumin [Mass/Vol] 3.6 g/dL Normal 3.4-5.0 [facility] Comment on above: Performed By: #### U DINA, LIPID, TSH, BNP, CMP, T7 #### [facility] [address] [place] [address] Dr. Suzie Brooks Albumin/Globulin [Mass ratio] 0.9 {ratio} Normal [facility] Comment on above: Performed By: #### U DINA, LIPID, TSH, BNP, CMP, T7 #### [facility] [address] [place] [address] Dr. Suzie Brooks ALP [Catalytic activity/Vol] 70 U/L Normal 46-116 [facility] Comment on above: Performed By: #### U DINA, LIPID, TSH, BNP, CMP, T7 #### [facility] [address] [place] [address] Dr. Suzie Brooks ALT [Catalytic activity/Vol] 30 U/L Normal 16-63 [facility] Comment on above: Performed By: #### U DINA, LIPID, TSH, BNP, CMP, T7 #### [facility] [address] [place] [address] Dr. Suzie Brooks Anion gap [Moles/Vol] 9.2 mmol/L Normal [facility] Comment on above: Performed By: #### U DINA, LIPID, TSH, BNP, CMP, T7 #### [facility] [address] [place] [address] Dr. Suzie Brooks AST [Catalytic activity/Vol] 29 U/L Normal 15-37 [facility] Comment on above: Performed By: #### U DINA, LIPID, TSH, BNP, CMP, T7 #### [facility] [address] [place] [address] Dr. Suzie Brooks Bilirubin [Mass/Vol] 0.5 mg/dL Normal 0.2-1.0 [facility] Comment on above: Performed By: #### U DINA, LIPID, TSH, BNP, CMP, T7 #### [facility] [address] [address] [address] Suzie Brooks Calcium [Mass/Vol] 8.8 mg/dL Normal 8.5-10.1 [facility] Comment on above: Performed By: #### U DINA, LIPID, TSH, BNP, CMP, T7 #### [facility] [address] [address] [address] Suzie Brooks Chloride [Moles/Vol] 102 mmol/L Normal 98-107 [facility] Comment on above: Performed By: #### U DINA, LIPID, TSH, BNP, CMP, T7 #### [facility] [address] [address] [address] Suzie Brooks CO2 [Moles/Vol] 27.2 mmol/L Normal 21.0-32.0 [facility] Comment on above: Performed By: #### U DINA, LIPID, TSH, BNP, CMP, T7 #### [facility] [address] [place] [address] Dr. Suzie Brooks Creatinine [Mass/Vol] 0.99 mg/dL Normal 0.70-1.30 [facility] Comment on above: Performed By: #### U DINA, LIPID, TSH, BNP, CMP, T7 #### [facility] [address] [place] [address] Dr. Suzie Brooks EGFR-AF DJIBOUTIAN >60 Normal >=60 [facility] Comment on above: Performed By: #### U DINA, LIPID, TSH, BNP, CMP, T7 #### [facility] [address] [place] [address] Dr. Suzie Brooks EGFR-NON AF DJIBOUTIAN >60 Normal >=60 [facility] Comment on above: Performed By: #### U DINA, LIPID, TSH, BNP, CMP, T7 #### [facility] [address] [place] [address] Dr. Suzie Brooks Globulin (S) [Mass/Vol] 3.9 g/dL Normal [facility] Comment on above: Performed By: #### U DINA, LIPID, TSH, BNP, CMP, T7 #### [facility] [address] [place] [address] Dr. Suzie Brooks Glucose [Mass/Vol] 125 mg/dL Critically high 74-[address] [facility] Comment on above: Performed By: #### U DINA, LIPID, TSH, BNP, CMP, T7 #### [facility] [address] [place] [address] Dr. Suzie Brooks Potassium [Moles/Vol] 3.4 mmol/L Critically low 3.5-5.1 [facility] Comment on above: Performed By: #### U DINA, LIPID, TSH, BNP, CMP, T7 #### [facility] [address] [place] [address] Dr. Suzie Brooks Protein [Mass/Vol] 7.5 g/dL Normal 6.4-8.2 [facility] Comment on above: Performed By: #### U DINA, LIPID, TSH, BNP, CMP, T7 #### [facility] [address] [place] [address] Dr. Suzie Brooks Sodium [Moles/Vol] 135 mmol/L Critically low 136-145 [facility] Comment on above: Performed By: #### U DINA, LIPID, TSH, BNP, CMP, T7 #### [facility] [address] [place] [address] Dr. Suzie Brooks Urea nitrogen [Mass/Vol] 15.0 mg/dL Normal 7.0-18.0 [facility] Comment on above: Performed By: #### U DINA, LIPID, TSH, BNP, CMP, T7 #### [facility] [address] [place] [address] Dr. Suzie Brooks Urea nitrogen/Creatinine [Mass ratio] 15.2 mg/mg Normal [facility] Comment on above: Performed By: #### U DINA, LIPID, TSH, BNP, CMP, T7 #### [facility] [address] [place] [address] Dr. Suzie Brooks PROTIMEon 07-26-2022 INR Coag (PPP) [Relative time] 0.95 {INR} Normal [facility] Comment on above: Performed By: #### C VDTBH #### [facility] [address] [place] [address] Dr. Suzie Brooks INR GUIDELINES SEE BELOW Normal [facility] Comment on above: Result Comment: TOMMY RED INR: 2.0 - 3.0 CONDITIONS NOT LISTED BELOW 2.5 - 3.5 FOR PROSTHETIC HEART VALVE REPLACEMENT 2.5 - 3.5 RECURRENT THROMBOSIS Performed By: #### C VDTBH #### [facility] [address] [place] [address] Dr. Suzie Brooks PT Coag (PPP) [Time] 10.3 s Normal 9.0-11.6 [facility] Comment on above: Performed By: #### C VDTBH #### [facility] [address] [place] [address] Dr. Suzie Brooks PTTon 07-26-2022 aPTT Coag (Bld) [Time] 28.2 s Normal 22.3-36.2 [facility] Comment on above: Performed By: #### C VDTBH #### [facility] [address] [place] [address] Dr. Suzie Brooks TSHon 07-26-2022 TSH 2.000 uIU/mL Normal 0.358-3.740 [facility] Comment on above: Performed By: #### O X24HR #### [facility] [address] [place] [address] Dr. Suzie Brooks XR CHEST 1 Von [...] BEHZAD CARRASQUILLO Date: 2022-07-26 10:51 Normal [facility] CREATININEon 07-18-2022 Creatinine [Mass/Vol] 0.93 mg/dL Normal 0.70-1.30 [facility] Comment on above: Performed By: #### U DINA, LIPID, TSH, BNP, CMP, T7 #### [facility] [address] [place], [place] [address] Dr. Suzie Brooks EGFR-AF DJIBOUTIAN >60 Normal >=60 [facility] Comment on above: Performed By: #### U DINA, LIPID, TSH, BNP, CMP, T7 #### [facility] [address] [place], [place] [address] Dr. Suzie Brooks EGFR-NON AF DJIBOUTIAN >60 Normal >=60 [facility] Comment on above: Performed By: #### U DINA, LIPID, TSH, BNP, CMP, T7 #### [facility] [address] [place], [place] [address] Dr. Suzie Brooks XR IVPon 07-18-2022 XR IVP EXAMINATION: XR IVP HISTORY: Kidney stone COMPARISON: XR KUB 11/21/2021, CT abdomen pelvis 02/16/2022 TECHNIQUE: After obtaining patient consent a fusion operator image was obtained followed by injection of [...] Date: 2022-07-18 11:50 Normal [facility] INSULINon 05-16-2022 Insulin 59.0 uIU/mL Critically high 2.6-24.9 [facility] Comment on above: Performed By: #### U DINA, LIPID, TSH, BNP, CMP, T7 #### [facility] [address] [place] [address] Dr. Suzie Brooks BNPon 05-15-2022 Natriuretic peptide B (Bld) [Mass/Vol] 81.0 pg/mL Normal <=900.0 [facility] Comment on above: Performed By: #### U DINA, LIPID, TSH, BNP, CMP, T7 #### [facility] [address] [place] [address] Dr. Suzie Brooks CBC AUTO DIFFon 05-15-2022 BASO # 0.1 103/ul Normal 0.0-0.1 [facility] Comment on above: Performed By: #### C VDTBH #### [facility] [address] [place] [address] Dr. Suzie Brooks Basophils/100 WBC (Bld) 0.6 % Normal 0.2-2.0 [facility] Comment on above: Performed By: #### C VDTBH #### [facility] [address] [place] [address] Dr. Suzie Brooks EO # 0.3 103/ul Normal 0.0-0.7 [facility] Comment on above: Performed By: #### C VDTBH #### [facility] [address] [place] [address] Dr. Suzie Brooks Eosinophils/100 WBC (Bld) 2.9 % Normal 0.9-7.0 [facility] Comment on above: Performed By: #### C VDTBH #### [facility] [address] [place] [address] Dr. Suzie Brooks Erythrocyte distribution width (RBC) [Ratio] 14.1 % Normal 11.0-15.0 [facility] Comment on above: Performed By: #### C VDTBH #### [facility] [address] [place] [address] Dr. Suzie Brooks Hematocrit (Bld) [Volume fraction] 46.7 % Normal 42.0-54.0 [facility] Comment on above: Performed By: #### C VDTBH #### [facility] [address] [place] [address] Dr. Suzie Brooks Hemoglobin (Bld) [Mass/Vol] 15.4 g/dL Normal 14.0-18.0 [facility] Comment on above: Performed By: #### C VDTBH #### [facility] [address] [place] [address] Dr. Suzie Brooks IG # 0.03 10e3/ul Normal 0.00-0.03 [facility] Comment on above: Performed By: #### C VDTBH #### [facility] [address] [place] [address] Dr. Suzie Broosk IG % 0.3 % Normal 0.0-0.5 [facility] Comment on above: Performed By: #### C VDTBH #### [facility] [address] [place] [address] Dr. Suzie Brooks LYMPH # 2.6 103/ul Normal 1.2-3.8 [facility] Comment on above: Performed By: #### C VDTBH #### [facility] [address] [place] [address] Dr. Suzie Brooks Lymphocytes/100 WBC (Bld) 25.1 % Normal 20.5-60.0 [facility] Comment on above: Performed By: #### C VDTBH #### [facility] [address] [place] [address] Dr. Suzie Brooks MANUAL DIFF REQ NO Normal [facility] Comment on above: Performed By: #### C VDTBH #### [facility] [address] [place] [address] Dr. Suzie Brooks MCH (RBC) [Entitic mass] 28.6 pg Normal 25.9-34.0 [facility] Comment on above: Performed By: #### C VDTBH #### [facility] [address] [place] [address] Dr. Suzie Brooks MCHC (RBC) [Mass/Vol] 33.0 g/dL Normal 29.9-35.2 [facility] Comment on above: Performed By: #### C VDTBH #### [facility] [address] [place] [address] Dr. Suzie Brooks MCV (RBC) [Entitic vol] 86.8 fL Normal 80.0-94.0 [facility] Comment on above: Performed By: #### C VDTBH #### [facility] [address] [place] [address] Dr. Suzie Brooks MONO # 0.7 103/ul Normal 0.3-0.8 [facility] Comment on above: Performed By: #### C VDTBH #### [facility] [address] [place] [address] Dr. Suzie Brooks Monocytes/100 WBC (Bld) 6.8 % Normal 1.7-12.0 [facility] Comment on above: Performed By: #### C VDTBH #### [facility] [address] [place] [address] Dr. Suzie Brooks NEUT # 6.5 103/ul Normal 1.4-6.5 [facility] Comment on above: Performed By: #### C VDTBH #### [facility] [address] [place] [address] Dr. Suzie Brooks Neutrophils/100 WBC (Bld) 64.3 % Normal 43.0-75.0 [facility] Comment on above: Performed By: #### C VDTBH #### [facility] [address] [place] [address] Dr. Suzie Brooks Platelet mean volume (Bld) [Entitic vol] 9.5 fL Normal 9.5-13.5 [facility] Comment on above: Performed By: #### C VDTBH #### [facility] [address] [place] [address] Dr. Suzie Brooks PLT 273 103/ul Normal 150-450 [facility] Comment on above: Performed By: #### C VDTBH #### [facility] [address] [place] [address] Dr. Suzie Brooks RBC 5.38 106/ul Normal 4.70-6.10 [facility] Comment on above: Performed By: #### C VDTBH #### [facility] [address] [address] [address] Suzie Brooks WBC 10.2 103/ul Normal 4.0-11.0 [facility] Comment on above: Performed By: #### C VDTBH #### [facility] [address] [address] [address] Suzie Brooks FREE THYROXINE INDEX T7on FTI 2.23 Normal 1.30-4.50 [facility] Comment on above: Performed By: #### U DINA, LIPID, TSH, BNP, CMP, T7 #### [facility] [address] [address] [address] Suzie Brooks T3U 36.0 % Normal 33.0-40.0 [facility] Comment on above: Performed By: #### U DINA, LIPID, TSH, BNP, CMP, T7 #### [facility] [address] [place] [address] Dr. Suzie Brooks T4 [Mass/Vol] 6.20 ug/dL Normal 4.50-12.10 [facility] Comment on above: Performed By: #### U DINA, LIPID, TSH, BNP, CMP, T7 #### [facility] [address] [place] [address] Dr. Suzie Brooks GLYCOHEMOGLOBIN A1Con 2021 ADA RECOMMENDATION SEE BELOW Normal [facility] Comment on above: Result Comment: ADA RECOMMENDED LIMIT 4.0 - 6.0 ADA THERAPEUTIC TARGET < 7.0 ACTION SUGGESTED > 7.0 Performed By: #### U DINA, LIPID, TSH, BNP, CMP, T7 #### [facility] [address] [place] [address] Dr. Suzie Brooks Glucose [Mass/Vol] 111 mg/dL Normal [facility] Comment on above: Performed By: #### U DINA, LIPID, TSH, BNP, CMP, T7 #### [facility] [address] [place] [address] Dr. Suzie Brooks HbA1c (Bld) [Mass fraction] 5.5 % Normal 4.5-6.2 [facility] Comment on above: Performed By: #### U DINA, LIPID, TSH, BNP, CMP, T7 #### [facility] [address] [address] [address] Suzie Brooks LIPID PROFILEon 05-15-2022 CHOL-HDL RATIO NORM SEE BELOW Normal [facility] Comment on above: Result Comment: 3.3 - 4.4 LOW RISK 4.4 - 7.1 AVERAGE RISK 7.1 - 11.0 MODERATE RISK >11.0 HIGH RISK Performed By: #### U DINA, LIPID, TSH, BNP, CMP, T7 #### [facility] [address] [address] [address] Suzie Brooks Cholesterol [Mass/Vol] 136 mg/dL Normal <=200 [facility] Comment on above: Performed By: #### U DINA, LIPID, TSH, BNP, CMP, T7 #### [facility] [address] [address] [address] Suzie Brooks Cholesterol in HDL [Mass/Vol] 34 mg/dL Critically low 40-60 [facility] Comment on above: Performed By: #### U DINA, LIPID, TSH, BNP, CMP, T7 #### [facility] [address] [address] [address] Suzie Brooks Cholesterol in LDL [Mass/Vol] 49.8 mg/dL Normal [facility] Comment on above: Performed By: #### U DINA, LIPID, TSH, BNP, CMP, T7 #### [facility] [address] [address] [address] Suzie Brooks Cholesterol.total/Ch olesterol in HDL [Mass ratio] 4.0 {ratio} Normal [facility] Comment on above: Performed By: #### U DINA, LIPID, TSH, BNP, CMP, T7 #### [facility] [address] [address] [address] Suzie Brooks HDL NORMAL > or = 60 mg/dl - LO W CARDIOVASCULAR RISK <40 mg/dl - HIGH CARDIOVASCULAR RISK Normal [facility] Comment on above: Performed By: #### U DINA, LIPID, TSH, BNP, CMP, T7 #### [facility] [address] [address] [address] Suzie Brooks LDL CALC NORMAL SEE BELOW Normal [facility] Comment on above: Result Comment: <100 mg/dl OPTIMAL 100 - 129 mg/dl NEAR OR ABOVE OPTIMAL 130 - 159 mg/dl BORDERLINE HIGH 160 - 189 mg/dl HIGH >190 mg/dl VERY HIGH Performed By: #### U DINA, LIPID, TSH, BNP, CMP, T7 #### [facility] [address] [address] [address] Suzie Brooks Triglyceride [Mass/Vol] 261 mg/dL Critically high <=150 [facility] Comment on above: Performed By: #### U DINA, LIPID, TSH, BNP, CMP, T7 #### [facility] [address] [address] [address] Suzie Brooks VLDL CALC 52.2 mg/dL Normal [facility] Comment on above: Performed By: #### U DINA, LIPID, TSH, BNP, CMP, T7 #### [facility] [address] [address] [address] Suzie Brooks PROF 14(COMP METB)on 022 Albumin [Mass/Vol] 3.6 g/dL Normal 3.4-5.0 [facility] Comment on above: Performed By: #### U DINA, LIPID, TSH, BNP, CMP, T7 #### [facility] [address] [address] [address] Suzie Brooks Albumin/Globulin [Mass ratio] 0.9 {ratio} Normal [facility] Comment on above: Performed By: #### U DINA, LIPID, TSH, BNP, CMP, T7 #### [facility] [address] [address] [address] Suzie Brooks ALP [Catalytic activity/Vol] 60 U/L Normal 46-116 [facility] Comment on above: Performed By: #### U DINA, LIPID, TSH, BNP, CMP, T7 #### [facility] [address] [address] [address] Suzie Brooks ALT [Catalytic activity/Vol] 36 U/L Normal 16-63 [facility] Comment on above: Performed By: #### U DINA, LIPID, TSH, BNP, CMP, T7 #### [facility] [address] [place] [address] Dr. Suzie Brooks Anion gap [Moles/Vol] 11.7 mmol/L Normal [facility] Comment on above: Performed By: #### U DINA, LIPID, TSH, BNP, CMP, T7 #### [facility] [address] [place] [address] Dr. Suzie Brooks AST [Catalytic activity/Vol] 28 U/L Normal 15-37 [facility] Comment on above: Performed By: #### U DINA, LIPID, TSH, BNP, CMP, T7 #### [facility] [address] [address] [address] Suzie Brooks Bilirubin [Mass/Vol] 0.6 mg/dL Normal 0.2-1.0 [facility] Comment on above: Performed By: #### U DINA, LIPID, TSH, BNP, CMP, T7 #### [facility] [address] [place] [address] Dr. Suzie Brooks Calcium [Mass/Vol] 8.8 mg/dL Normal 8.5-10.1 [facility] Comment on above: Performed By: #### U DINA, LIPID, TSH, BNP, CMP, T7 #### [facility] [address] [place] [address] Dr. Suzie Brooks Chloride [Moles/Vol] 102 mmol/L Normal 98-107 [facility] Comment on above: Performed By: #### U DINA, LIPID, TSH, BNP, CMP, T7 #### [facility] [address] [place] [address] Dr. Suzie Brooks CO2 [Moles/Vol] 27.9 mmol/L Normal 21.0-32.0 [facility] Comment on above: Performed By: #### U DINA, LIPID, TSH, BNP, CMP, T7 #### [facility] [address] [place] [address] Dr. Suzie Brooks Creatinine [Mass/Vol] 0.98 mg/dL Normal 0.70-1.30 [facility] Comment on above: Performed By: #### U DINA, LIPID, TSH, BNP, CMP, T7 #### [facility] [address] [address] [address] Suzie Brooks EGFR-AF DJIBOUTIAN >60 Normal >=60 [facility] Comment on above: Performed By: #### U DINA, LIPID, TSH, BNP, CMP, T7 #### [facility] [address] [address] [address] uSzie Brooks EGFR-NON AF DJIBOUTIAN >60 Normal >=60 [facility] Comment on above: Performed By: #### U DINA, LIPID, TSH, BNP, CMP, T7 #### [facility] [address] [address] [address] Suzie Brooks Globulin (S) [Mass/Vol] 3.8 g/dL Normal [facility] Comment on above: Performed By: #### U DINA, LIPID, TSH, BNP, CMP, T7 #### [facility] [address] [address] [address] Suzie Brooks Glucose [Mass/Vol] 107 mg/dL Critically high 74-106 [facility] Comment on above: Performed By: #### U DINA, LIPID, TSH, BNP, CMP, T7 #### [facility] [address] [address] [address] Suzie Brooks Potassium [Moles/Vol] 3.6 mmol/L Normal 3.5-5.1 [facility] Comment on above: Performed By: #### U DINA, LIPID, TSH, BNP, CMP, T7 #### [facility] [facility] [address] [address] [address] Suzie Brooks Protein [Mass/Vol] 7.4 g/dL Normal 6.4-8.2 The [facility] Comment on above: Performed By: #### U DINA, LIPID, TSH, BNP, CMP, T7 #### [facility] [address] [address] [address] Suzie Brooks Sodium [Moles/Vol] 138 mmol/L Normal 136-145 [facility] Comment on above: Performed By: #### U DINA, LIPID, TSH, BNP, CMP, T7 #### [facility] [address] [address] [address] Suzie Brooks Urea nitrogen [Mass/Vol] 12.0 mg/dL Normal 7.0-18.0 The [facility] Comment on above: Performed By: #### U DINA, LIPID, TSH, BNP, CMP, T7 #### [facility] [address] [place] [address] Dr. Suzie Brooks Urea nitrogen/Creatinine [Mass ratio] 12.2 mg/mg Normal [facility] Comment on above: Performed By: #### U DINA, LIPID, TSH, BNP, CMP, T7 #### [facility] [address] [place] [address] Dr. Suzie Brooks TSHon 05-15-2022 TSH 2.356 uIU/mL Normal 0.358-3.740 The [facility] Comment on above: Performed By: #### U DINA, LIPID, TSH, BNP, CMP, T7 #### [facility] [address] [place] [address] Dr. Suzie Brooks URIC ACID SERUMon 05-15-2022 Urate [Mass/Vol] 5.2 mg/dL Normal 3.5-7.2 The [facility] Comment on above: Performed By: #### U DINA, LIPID, TSH, BNP, CMP, T7 #### [facility] [address] [place] [address] Dr. Suzie Brooks CALCULI, URINARYon 2 2,8 Dihydroxyadenine Normal [facility] Comment on above: Performed By: #### U DINA, LIPID, TSH, BNP, CMP, T7 #### [facility] [address] [place] [address] Dr. Suzie Brooks Ammonium Acid Urate Normal [facility] Comment on above: Performed By: #### U DINA, LIPID, TSH, BNP, CMP, T7 #### [facility] [address] [place] [address] Dr. Suzie Brooks Bilirubin Ql (U) Normal [facility] Comment on above: Performed By: #### U DINA, LIPID, TSH, BNP, CMP, T7 #### [facility] [address] [place] [address] Dr. Suzie Brooks Ca Oxalate Dihydrate Normal [facility] Comment on above: Performed By: #### U DINA, LIPID, TSH, BNP, CMP, T7 #### [facility] [address] [address] [address] Suzie Brooks CaHPO4 (Brushite) Normal [facility] Comment on above: Performed By: #### U DINA, LIPID, TSH, BNP, CMP, T7 #### [facility] [address] [address] [address] Suzie Brooks Calcium Bilirubinate [facility] Comment on above: Performed By: #### U DINA, LIPID, TSH, BNP, CMP, T7 #### [facility] [address] [address] [address] Suzie Brooks Calcium Carbonate [facility] Comment on above: Performed By: #### U DINA, LIPID, TSH, BNP, CMP, T7 #### [facility] [address] [address] [address] Suzie Brooks Calcium Oxalate Monohydrate 70 % [facility] Comment on above: Performed By: #### U DINA, LIPID, TSH, BNP, CMP, T7 #### [facility] [address] [address] [address] Suzie Brooks Calcium Palmitate [facility] Comment on above: Performed By: #### U DINA, LIPID, TSH, BNP, CMP, T7 #### [facility] [address] [address] [address] Suzie Brooks Calcium Phosphate Normal [facility] Comment on above: Performed By: #### U DINA, LIPID, TSH, BNP, CMP, T7 #### [facility] [address] [address] [address] Suzie Brooks Calcium Stearate Normal [facility] Comment on above: Performed By: #### U DINA, LIPID, TSH, BNP, CMP, T7 #### [facility] [address] [address] [address] Suzie Brooks Carbonate Apatite Normal [facility] Comment on above: Performed By: #### U DINA, LIPID, TSH, BNP, CMP, T7 #### [facility] [address] [address] [address] Suzie Brooks Cellular Material Normal [facility] Comment on above: Performed By: #### U DINA, LIPID, TSH, BNP, CMP, T7 #### [facility] [address] [address] [address] Suzie Brooks Cholesterol [facility] Comment on above: Performed By: #### U DINA, LIPID, TSH, BNP, CMP, T7 #### [facility] [address] [address] [address] Suzie Brooks Color (U) Brown [facility] Comment on above: Performed By: #### U DINA, LIPID, TSH, BNP, CMP, T7 #### [facility] [address] [address] [address] Suzie Brooks Comment [facility] Comment on above: Performed By: #### U DINA, LIPID, TSH, BNP, CMP, T7 #### [facility] [address] [address] [address] Suzie Brooks Comment Comment [facility] Comment on above: Result Comment: Calc ulus received in liquid. Wet calculi must be dried before analysis, which delays reporting of results. Leaving calculi in liquid (such as water, saline, blood, urine) may lead to changes in composition. Performed By: #### U DINA, LIPID, TSH, BNP, CMP, T7 #### [facility] [address] [address] [address] Suzie Brooks Comment: Comment Normal [facility] Comment on above: Result Comment: Fantasma baez questions regarding Calculi Analysis contact [facility] at: [phone]. Performed By: #### U DINA, LIPID, TSH, BNP, CMP, T7 #### [facility] [address] [address] [address] Suzie Brooks Composition Comment [facility] Comment on above: Result Comment: Perc entage (Represents the % composition) Performed By: #### U DINA, LIPID, TSH, BNP, CMP, T7 #### [facility] [address] [place] [address] Dr. Suzie Brooks Cystine Normal [facility] Comment on above: Performed By: #### U DINA, LIPID, TSH, BNP, CMP, T7 #### [facility] [address] [address] [address] Suzie Brooks Disclaimer: Comment Normal [facility] Comment on above: Result Comment: This test was developed and its performance characteristics determined by [facility]. It has not been cleared or approved by the Food and Drug Administration. Performed By: #### U DINA, LIPID, TSH, BNP, CMP, T7 #### [facility] [address] [address] [address] Suzie Brooks Dried Blood Normal [facility] Comment on above: Performed By: #### U DINA, LIPID, TSH, BNP, CMP, T7 #### [facility] [address] [place] [address] Dr. Suzie Brooks Drug or Metabolite Normal [facility] Comment on above: Performed By: #### U DINA, LIPID, TSH, BNP, CMP, T7 #### [facility] [address] [address] [address] Suzie Brooks Hydroxyapatite Normal [facility] Comment on above: Performed By: #### U DINA, LIPID, TSH, BNP, CMP, T7 #### [facility] [address] [place] [address] Dr. Suzie Brooks Mg NH4 PO4 (Struvite) [facility] Comment on above: Performed By: #### U DINA, LIPID, TSH, BNP, CMP, T7 #### [facility] [address] [address] [address] Suzie Brooks MgHPO4 (Newberyite) Normal [facility] Comment on above: Performed By: #### U DINA, LIPID, TSH, BNP, CMP, T7 #### [facility] [address] [place] [address] Dr. Suzie Brooks Other component(s) Normal [facility] Comment on above: Performed By: #### U DINA, LIPID, TSH, BNP, CMP, T7 #### [facility] [address] [address] [address] Suzie Brooks PDF . Normal [facility] Comment on above: Performed By: #### U DINA, LIPID, TSH, BNP, CMP, T7 #### [facility] [address] [address] [address] Suzie Brooks Photo Comment [facility] Comment on above: Result Comment: Luis prasad will follow under a separate cover Performed By: #### U DINA, LIPID, TSH, BNP, CMP, T7 #### [facility] [address] [address] [address] Suzie Brooks Please note: Comment Normal [facility] Comment on above: Result Comment: Calc shamika report will follow via computer, mail or printed circuit boards solder leveler delivery. Performed By: #### U DINA, LIPID, TSH, BNP, CMP, T7 #### [facility] [address] [address] [address] Suzie Brooks Size 6x4 Normal [facility] Comment on above: Result Comment: Mult iple pieces received. Dimensions of the largest piece reported. Performed By: #### U DINA, LIPID, TSH, BNP, CMP, T7 #### [facility] [address] [address] [address] Suzie Brooks Sodium Acid Urate Normal [facility] Comment on above: Performed By: #### U DINA, LIPID, TSH, BNP, CMP, T7 #### [facility] [address] [address] [address] Suzie Brooks Source Comment [facility] Comment on above: Result Comment: Not provided Performed By: #### U DINA, LIPID, TSH, BNP, CMP, T7 #### [facility] [address] [address] [address] Suzie Brooks Triamterene [facility] Comment on above: Performed By: #### U DINA, LIPID, TSH, BNP, CMP, T7 #### [facility] [address] [address] [address] Suzie Brooks Uric Acid 30 % [facility] Comment on above: Performed By: #### U DINA, LIPID, TSH, BNP, CMP, T7 #### [facility] [address] [address] [address] Suzie Brooks Uric Acid Dihydrate Normal [facility] Comment on above: Performed By: #### U DINA, LIPID, TSH, BNP, CMP, T7 #### [facility] [address] [address] [address] Suzie Brooks Weight 99 mg Normal [facility] Comment on above: Performed By: #### U DINA, LIPID, TSH, BNP, CMP, T7 #### [facility] [address] [address] [address] Suzie Brooks Xanthine Normal [facility] Comment on above: Performed By: #### U DINA, LIPID, TSH, BNP, CMP, T7 #### [facility] [address] [place] [address] Dr. Suzie Brooks CBC AUTO DIFFon 02-18-2022 BASO # 0.0 103/ul Normal 0.0-0.1 [facility] Comment on above: Performed By: #### U DINA, LIPID, TSH, BNP, CMP, T7 #### [facility] [address] [place] [address] Dr. Suzie Brooks Basophils/100 WBC (Bld) 0.3 % Normal 0.2-2.0 The [facility] Comment on above: Performed By: #### U DINA, LIPID, TSH, BNP, CMP, T7 #### [facility] [address] [place] [address] Dr. Suzie Brooks EO # 0.3 103/ul Normal 0.0-0.7 The [facility] Comment on above: Performed By: #### U DINA, LIPID, TSH, BNP, CMP, T7 #### [facility] [address] [place] [address] Dr. Suzie Brooks Eosinophils/100 WBC (Bld) 2.3 % Normal 0.9-7.0 The [facility] Comment on above: Performed By: #### U DINA, LIPID, TSH, BNP, CMP, T7 #### [facility] [address] [place] [address] Dr. Suzie Brooks Erythrocyte distribution width (RBC) [Ratio] 14.2 % Normal 11.0-15.0 The [facility] Comment on above: Performed By: #### U DINA, LIPID, TSH, BNP, CMP, T7 #### [facility] [address] [place] [address] Dr. Suzie Brooks Hematocrit (Bld) [Volume fraction] 41.3 % Critically low 42.0-54.0 [facility] Comment on above: Performed By: #### U DINA, LIPID, TSH, BNP, CMP, T7 #### [facility] [address] [address] [address] Suzie Brooks Hemoglobin (Bld) [Mass/Vol] 13.4 g/dL Critically low 14.0-18.0 The [facility] Comment on above: Performed By: #### U DINA, LIPID, TSH, BNP, CMP, T7 #### [facility] [address] [place] [address] Dr. Suzie Brooks IG # 0.03 10e3/ul Normal 0.00-0.03 The [facility] Comment on above: Performed By: #### U DINA, LIPID, TSH, BNP, CMP, T7 #### [facility] [address] [place] [address] Dr. Suzie Brooks IG % 0.3 % Normal 0.0-0.5 [facility] Comment on above: Performed By: #### U DINA, LIPID, TSH, BNP, CMP, T7 #### [facility] [address] [place] [address] Dr. Szuie Brooks LYMPH # 2.0 103/ul Normal 1.2-3.8 The [facility] Comment on above: Performed By: #### U DINA, LIPID, TSH, BNP, CMP, T7 #### [facility] [address] [place] [address] Dr. Suzie Brooks Lymphocytes/100 WBC (Bld) 18.0 % Critically low 20.5-60.0 The [facility] Comment on above: Performed By: #### U DINA, LIPID, TSH, BNP, CMP, T7 #### [facility] [address] [place] [address] Dr. Suzie Brooks MANUAL DIFF REQ NO Normal [facility] Comment on above: Performed By: #### U DINA, LIPID, TSH, BNP, CMP, T7 #### [facility] [address] [address] [address] Suzie Brooks MCH (RBC) [Entitic mass] 28.8 pg Normal 25.9-34.0 The [facility] Comment on above: Performed By: #### U DINA, LIPID, TSH, BNP, CMP, T7 #### [facility] [address] [place] [address] Dr. Suzie Brooks MCHC (RBC) [Mass/Vol] 32.4 g/dL Normal 29.9-35.2 The [facility] Comment on above: Performed By: #### U DINA, LIPID, TSH, BNP, CMP, T7 #### [facility] [address] [place] [address] Dr. Suzie Brooks MCV (RBC) [Entitic vol] 88.6 fL Normal 80.0-94.0 The [facility] Comment on above: Performed By: #### U DINA, LIPID, TSH, BNP, CMP, T7 #### [facility] [address] [place] [address] Dr. Suzie Brooks MONO # 1.0 103/ul Critically high 0.3-0.8 [facility] Comment on above: Performed By: #### U DINA, LIPID, TSH, BNP, CMP, T7 #### [facility] [address] [place] [address] Dr. Suzie Brooks Monocytes/100 WBC (Bld) 9.2 % Normal 1.7-12.0 The [facility] Comment on above: Performed By: #### U DINA, LIPID, TSH, BNP, CMP, T7 #### [facility] [address] [place] [address] Dr. Suzie Brooks NEUT # 7.9 103/ul Critically high 1.4-6.5 [facility] Comment on above: Performed By: #### U DINA, LIPID, TSH, BNP, CMP, T7 #### [facility] [address] [place] [address] Dr. Suzie Brooks Neutrophils/100 WBC (Bld) 69.9 % Normal 43.0-75.0 The [facility] Comment on above: Performed By: #### U DINA, LIPID, TSH, BNP, CMP, T7 #### [facility] [address] [place] [address] Dr. Suzie Brooks Platelet mean volume (Bld) [Entitic vol] 9.6 fL Normal 9.5-13.5 The [facility] Comment on above: Performed By: #### U DINA, LIPID, TSH, BNP, CMP, T7 #### [facility] [address] [place] [address] Dr. Suzie Brooks PLT 218 103/ul Normal 150-450 The [facility] Comment on above: Performed By: #### U DINA, LIPID, TSH, BNP, CMP, T7 #### [facility] [address] [place] [address] Dr. Suzie Brooks RBC 4.66 106/ul Critically low 4.70-6.10 [facility] Comment on above: Performed By: #### U DINA, LIPID, TSH, BNP, CMP, T7 #### [facility] [address] [place] [address] Dr. Suzie Brooks WBC 11.3 103/ul Critically high 4.0-11.0 [facility] Comment on above: Performed By: #### U DINA, LIPID, TSH, BNP, CMP, T7 #### [facility] [address] [place] [address] Dr. Suzie Brooks CULTURE URINEon 02-18-2022 CULTURE URINE Culture Observations : NO GROWTH. Normal The [facility] Comment on above: Performed By: #### M [id number] #### [facility] [address] [place] [address] Dr. Suzie Brooks [facility]08 SARS-CoV-2 (COVID-19) RNA SUKHJINDER+probe Ql (Unsp spec) Not detected Normal NOT DETECTED The [facility] Comment on above: Result Comment: When diagnostic [...] for this test is supported by the [place] of Health and Human Service's declaration that [...] used). Performed By: #### C VDTB #### [facility] [address] [place] [address] Dr. Suzie Brooks PROF 14(COMP METB)on 022 Albumin [Mass/Vol] 3.0 g/dL Critically low 3.4-5.0 Th [facility] Comment on above: Performed By: #### O [id number] #### [facility] [address] [place] [address] Dr. Suzie Brooks Albumin/Globulin [Mass ratio] 0.9 {ratio} Normal [facility] Comment on above: Performed By: #### O [id number] #### [facility] [address] [place] [address] Dr. Suzie Brooks ALP [Catalytic activity/Vol] 49 U/L Normal 46-116 [facility] Comment on above: Performed By: #### O [id number] #### [facility] [address] [place] [address] Dr. Suzie Brooks ALT [Catalytic activity/Vol] 35 U/L Normal 16-63 [facility] Comment on above: Performed By: #### O [id number] #### [facility] [address] [place] [address] Dr. Suzie Brooks Anion gap [Moles/Vol] 11.8 mmol/L Normal [facility] Comment on above: Performed By: #### O [id number] #### [facility] [address] [place] [address] Dr. Suzie Brooks AST [Catalytic activity/Vol] 27 U/L Normal 15-37 [facility] Comment on above: Performed By: #### O [id number] #### [facility] [address] [place] [address] Dr. Suzie Brooks Bilirubin [Mass/Vol] 0.4 mg/dL Normal 0.2-1.0 [facility] Comment on above: Performed By: #### O X24HR #### [facility] [address] [place] [address] Dr. Suzie Brooks Calcium [Mass/Vol] 7.6 mg/dL Critically low 8.5-10.1 Th e [facility] Comment on above: Performed By: #### O [id number] #### [facility] [address] [place] [address] Dr. Suzie Brooks Chloride [Moles/Vol] 106 mmol/L Normal 98-107 [facility] Comment on above: Performed By: #### O X24HR #### [facility] [address] [place] [address] Dr. Suzie Brooks CO2 [Moles/Vol] 26.2 mmol/L Normal 21.0-32.0 [facility] Comment on above: Performed By: #### O [id number] #### [facility] [address] [place] [address] Dr. Suzie Brooks Creatinine [Mass/Vol] 1.08 mg/dL Normal 0.70-1.30 [facility] Comment on above: Performed By: #### O [id number] #### [facility] [address] [place] [address] Dr. Suzie Brooks EGFR-AF DJIBOUTIAN >60 Normal >=60 [facility] Comment on above: Performed By: #### O X24HR #### [facility] [address] [place] [address] Dr. Suzie Brooks EGFR-NON AF DJIBOUTIAN >60 Normal >=60 [facility] Comment on above: Performed By: #### O X24HR #### [facility] [address] [place] [address] Dr. Suzie Brooks Globulin (S) [Mass/Vol] 3.2 g/dL Normal [facility] Comment on above: Performed By: #### O X24HR #### [facility] [address] [place] [address] Dr. Suzie Brooks Glucose [Mass/Vol] 107 mg/dL Critically high 74-[address] [facility] Comment on above: Performed By: #### O X24HR #### [facility] [address] [place] [address] Dr. Suzie Brooks Potassium [Moles/Vol] 4.0 mmol/L Normal 3.5-5.1 [facility] Comment on above: Performed By: #### O [id number] #### [facility] [address] [place] [address] Dr. Suzie Brooks Protein [Mass/Vol] 6.2 g/dL Critically low 6.4-8.2 Th [facility] Comment on above: Performed By: #### O [id number] #### [facility] [address] [place] [address] Dr. Suzie Brooks Sodium [Moles/Vol] 140 mmol/L Normal 136-145 [facility] Comment on above: Performed By: #### O [id number] #### [facility] [address] [place] [address] Dr. Suzie Brooks Urea nitrogen [Mass/Vol] 14.0 mg/dL Normal 7.0-18.0 [facility] Comment on above: Performed By: #### O X24HR #### [facility] [address] [place] [address] Dr. Suzie Brooks Urea nitrogen/Creatinine [Mass ratio] 13.0 mg/mg Normal [facility] Comment on above: Performed By: #### O [id number] #### [facility] [address] [place] [address] Dr. Suzie Brooks CBC AUTO DIFFon 02-17-2022 BASO # 0.1 103/ul Normal 0.0-0.1 [facility] Comment on above: Performed By: #### M AG24 #### [facility] [address] [place] [address] Dr. Suzie Brooks Basophils/100 WBC (Bld) 0.4 % Normal 0.2-2.0 [facility] Comment on above: Performed By: #### M AG24 #### [facility] [address] [place] [address] Dr. Suzie Brooks EO # 0.3 103/ul Normal 0.0-0.7 [facility] Comment on above: Performed By: #### M AG24 #### [facility] [address] [place] [address] Dr. Suzie Brooks Eosinophils/100 WBC (Bld) 2.3 % Normal 0.9-7.0 [facility] Comment on above: Performed By: #### M AG24 #### [facility] [address] [place] [address] Dr. Suzie Brooks Erythrocyte distribution width (RBC) [Ratio] 13.8 % Normal 11.0-15.0 [facility] Comment on above: Performed By: #### M AG24 #### [facility] [address] [place] [address] Dr. Suzie Brooks Hematocrit (Bld) [Volume fraction] 45.2 % Normal 42.0-54.0 [facility] Comment on above: Performed By: #### M AG24 #### [facility] [address] [place] [address] Dr. Suzie Brooks Hemoglobin (Bld) [Mass/Vol] 14.9 g/dL Normal 14.0-18.0 [facility] Comment on above: Performed By: #### M AG24 #### [facility] [address] [place] [address] Dr. Suzie Brooks IG # 0.05 10e3/ul Critically high 0.00-0.03 [facility] Comment on above: Performed By: #### M AG24 #### [facility] [address] [place] [address] Dr. Suzie Brooks IG % 0.4 % Normal 0.0-0.5 [facility] Comment on above: Performed By: #### M AG24 #### [facility] [address] [address] [address] Suzie Broosk LYMPH # 2.5 103/ul Normal 1.2-3.8 [facility] Comment on above: Performed By: #### M AG24 #### [facility] [address] [place] [address] Dr. Suzie Brooks Lymphocytes/100 WBC (Bld) 17.3 % Critically low 20.5-60.0 [facility] Comment on above: Performed By: #### M AG24 #### [facility] [address] [place] [address] Dr. Suzie Brooks MANUAL DIFF REQ NO Normal [facility] Comment on above: Performed By: #### M AG24 #### [facility] [address] [place] [address] Dr. Suzie Brooks MCH (RBC) [Entitic mass] 28.7 pg Normal 25.9-34.0 [facility] Comment on above: Performed By: #### M AG24 #### [facility] [address] [place] [address] Dr. Suzie Brooks MCHC (RBC) [Mass/Vol] 33.0 g/dL Normal 29.9-35.2 [facility] Comment on above: Performed By: #### M AG24 #### [facility] [address] [place] [address] Dr. Suzie Brooks MCV (RBC) [Entitic vol] 87.1 fL Normal 80.0-94.0 [facility] Comment on above: Performed By: #### M AG24 #### [facility] [address] [place] [address] Dr. Suzie Brooks MONO # 1.0 103/ul Critically high 0.3-0.8 [facility] Comment on above: Performed By: #### M AG24 #### [facility] [address] [place] [address] Dr. Suzie Brooks Monocytes/100 WBC (Bld) 6.8 % Normal 1.7-12.0 [facility] Comment on above: Performed By: #### M AG24 #### [facility] [address] [place] [address] Dr. Suzie Brooks NEUT # 10.3 103/ul Critically high 1.4-6.5 [facility] Comment on above: Performed By: #### M AG24 #### [facility] [address] [place] [address] Dr. Suzie Brooks Neutrophils/100 WBC (Bld) 72.8 % Normal 43.0-75.0 [facility] Comment on above: Performed By: #### M AG24 #### [facility] [address] [place] [address] Dr. Suzie Brooks Platelet mean volume (Bld) [Entitic vol] 9.7 fL Normal 9.5-13.5 [facility] Comment on above: Performed By: #### M AG24 #### [facility] [address] [place] [address] Dr. Suzie Brooks PLT 253 103/ul Normal 150-450 [facility] Comment on above: Performed By: #### M AG24 #### [facility] [address] [place] [address] Dr. Suzie Brooks RBC 5.19 106/ul Normal 4.70-6.10 [facility] Comment on above: Performed By: #### M AG24 #### [facility] [address] [place] [address] Dr. Suzie Brooks WBC 14.2 103/ul Critically high 4.0-11.0 [facility] Comment on above: Performed By: #### M AG24 #### [facility] [address] [place] [address] Dr. Suzie Brooks CULTURE BLOODon 02-17-2022 Microscopic examination of blood, culture Culture Observations: NO GROWTH AT 5 DAYS. Normal [facility] Comment on above: Performed By: #### M AG24 #### [facility] [address] [place] [address] Dr. Suzie Brooks Microscopic examination of blood, culture Culture Observations: NO GROWTH AT 5 DAYS. Normal [facility] Comment on above: Performed By: #### M AG24 #### [facility] [address] [place] [address] Dr. Suzie Brooks ER URINE PROFILEon 2 Bilirubin Ql (U) Negative Normal NEGATIVE [facility] Comment on above: Performed By: #### E RUR #### [facility] [address] [place] [address] Dr. Suzie Brooks Clarity (U) CLEAR Normal CLEAR [facility] Comment on above: Performed By: #### E RUR #### [facility] [address] [place] [address] Dr. Suzie Brooks Color (U) DK. YELLOW Normal YELLOW [facility] Comment on above: Performed By: #### E RUR #### [facility] [address] [place] [address] Dr. Suzie NICOLED A micrscopic examina tion will be performed if indicated. Normal [facility] Comment on above: Performed By: #### E RUR #### [facility] [address] [place] [address] Dr. Suzie Brooks Glucose Ql (U) Negative Normal NEGATIVE [facility] Comment on above: Performed By: #### E RUR #### [facility] [address] [place] [address] Dr. Suzie Brooks Hemoglobin Ql (U) Negative Normal NEGATIVE [facility] Comment on above: Performed By: #### E RUR #### [facility] [address] [place] [address] Dr. Suzie Brooks Ketones Ql (U) Negative Normal NEGATIVE [facility] Comment on above: Performed By: #### E RUR #### [facility] [address] [place] [address] Dr. Suzie Brooks LEUKOCYTES Negative Normal NEGATIVE [facility] Comment on above: Performed By: #### E RUR #### [facility] [address] [place] [address] Dr. Suzie Brooks Nitrite Ql (U) Negative Normal NEGATIVE [facility] Comment on above: Performed By: #### E RUR #### [facility] [address] [place] [address] Dr. Suzie Brooks pH (U) 5.0 [pH] Normal 5-9 [facility] Comment on above: Performed By: #### E RUR #### [facility] [address] [place] [address] Dr. Suzie Brooks SPEC GRAVITY >=1.030 Abnormal 1.005-<=1.02 5 [facility] Comment on above: Performed By: #### E RUR #### [facility] [address] [place] [address] Dr. Suzie Brooks UA PROTEIN Negative Normal NEGATIVE/ TRACE [facility] Comment on above: Performed By: #### E RUR #### [facility] [address] [place] [address] Dr. Suzie Brooks UR MICRO IND NOT INDICATED Normal [facility] Comment on above: Performed By: #### E RUR #### [facility] [address] [place] [address] Dr. Suzie Brooks Urobilinogen Qn (U) 0.2 {Behzad'U}/dL Normal 0.2 - 1. 0 [facility] Comment on above: Performed By: #### E RUR #### [facility] [address] [place] [address] Dr. Suzie Brooks LACTATE/LACTIC ACIDon 2021 Lactate [Moles/Vol] 1.4 mmol/L Normal 0.4-1.9 [facility] Comment on above: Performed By: #### U DINA, LIPID, TSH, BNP, CMP, T7 #### [facility] [address] [place] [address] Dr. Suzie Brooks PROF CHEM 8 (BAS METB)on Anion gap [Moles/Vol] 12.2 mmol/L Normal [facility] Comment on above: Performed By: #### U DINA, LIPID, TSH, BNP, CMP, T7 #### [facility] [address] [place] [address] Dr. Suzie Brooks Calcium [Mass/Vol] 8.1 mg/dL Critically low 8.5-10.1 [facility] Comment on above: Performed By: #### U DINA, LIPID, TSH, BNP, CMP, T7 #### [facility] [address] [address] [address] Suzie Brooks Chloride [Moles/Vol] 103 mmol/L Normal 98-107 [facility] Comment on above: Performed By: #### U DINA, LIPID, TSH, BNP, CMP, T7 #### [facility] [address] [address] [address] Suzie Brooks CO2 [Moles/Vol] 26.1 mmol/L Normal 21.0-32.0 [facility] Comment on above: Performed By: #### U DINA, LIPID, TSH, BNP, CMP, T7 #### [facility] [address] [address] [address] Suzie Brooks Creatinine [Mass/Vol] 1.06 mg/dL Normal 0.70-1.30 [facility] Comment on above: Performed By: #### U DINA, LIPID, TSH, BNP, CMP, T7 #### [facility] [address] [address] [address] Suzie Brooks EGFR-AF DJIBOUTIAN >60 Normal >=60 [facility] Comment on above: Performed By: #### U DINA, LIPID, TSH, BNP, CMP, T7 #### [facility] [address] [address] [address] Suzie Brooks EGFR-NON AF DJIBOUTIAN >60 Normal >=60 [facility] Comment on above: Performed By: #### U DINA, LIPID, TSH, BNP, CMP, T7 #### [facility] [address] [address] [address] Suzie Brooks Glucose [Mass/Vol] 138 mg/dL Critically high 74-[address] [facility] Comment on above: Performed By: #### U DINA, LIPID, TSH, BNP, CMP, T7 #### [facility] [address] [address] [address] Suzie Brooks Potassium [Moles/Vol] 4.3 mmol/L Normal 3.5-5.1 [facility] Comment on above: Performed By: #### U DINA, LIPID, TSH, BNP, CMP, T7 #### [facility] [address] [place] [address] Dr. Suzie Brooks Sodium [Moles/Vol] 137 mmol/L Normal 136-145 [facility] Comment on above: Performed By: #### U DINA, LIPID, TSH, BNP, CMP, T7 #### [facility] [address] [address] [address] Suzie Brooks Urea nitrogen [Mass/Vol] 14.0 mg/dL Normal 7.0-18.0 [facility] Comment on above: Performed By: #### U DINA, LIPID, TSH, BNP, CMP, T7 #### [facility] [address] [place] [address] Dr. Suzie Brooks Urea nitrogen/Creatinine [Mass ratio] 13.2 mg/mg Normal [facility] Comment on above: Performed By: #### U DINA, LIPID, TSH, BNP, CMP, T7 #### [facility] [address] [place] [address] Dr. Suzie Brooks TROPONIN, HIGH SENSITIVITYon 02-17-2022 HSTROP 8.4 pg/mL Normal 4.0-76.1 [facility] Comment on above: Result Comment: CUT- OFF POINTS HAVE BEEN ESTABLISHED BASED ON THE FOURTH UNIVERSAL DEFINITIONS OF MYOCARDIAL INFARCTION. THE UPPER REFERENCE LIMIT (URL) OF TROPONIN, DEFINED THE 99TH PERCENTILE OF cTnI DISTRIBUTION IN A REFERENCE POPULATION, HAS BEEN CONFIRMED THE DECISION THRESHOLD FOR MO DIAGNOSIS. Performed By: #### U DINA, LIPID, TSH, BNP, CMP, T7 #### [facility] [address] [place] [address] Dr. Suzie Brooks CBC AUTO DIFFon 02-16-2022 BASO # 0.1 103/ul Normal 0.0-0.1 [facility] Comment on above: Performed By: #### U DINA, LIPID, TSH, BNP, CMP, T7 #### [facility] [address] [place] [address] Dr. Suzie Brooks Basophils/100 WBC (Bld) 0.4 % Normal 0.2-2.0 [facility] Comment on above: Performed By: #### U DINA, LIPID, TSH, BNP, CMP, T7 #### [facility] [address] [place] [address] Dr. Suzie Brooks EO # 0.3 103/ul Normal 0.0-0.7 [facility] Comment on above: Performed By: #### U DINA, LIPID, TSH, BNP, CMP, T7 #### [facility] [address] [place] [address] Dr. Suzie Brooks Eosinophils/100 WBC (Bld) 2.5 % Normal 0.9-7.0 [facility] Comment on above: Performed By: #### U DINA, LIPID, TSH, BNP, CMP, T7 #### [facility] [address] [place] [address] Dr. Suzie Brooks Erythrocyte distribution width (RBC) [Ratio] 13.9 % Normal 11.0-15.0 [facility] Comment on above: Performed By: #### U DINA, LIPID, TSH, BNP, CMP, T7 #### [facility] [address] [place] [address] Dr. Suzie Brooks Hematocrit (Bld) [Volume fraction] 46.6 % Normal 42.0-54.0 [facility] Comment on above: Performed By: #### U DINA, LIPID, TSH, BNP, CMP, T7 #### [facility] [address] [place] [address] Dr. Suzie Brooks Hemoglobin (Bld) [Mass/Vol] 15.7 g/dL Normal 14.0-18.0 [facility] Comment on above: Performed By: #### U DINA, LIPID, TSH, BNP, CMP, T7 #### [facility] [address] [place] [address] Dr. Suzie Brooks IG # 0.05 10e3/ul Critically high 0.00-0.03 [facility] Comment on above: Performed By: #### U DINA, LIPID, TSH, BNP, CMP, T7 #### [facility] [address] [place] [address] Dr. Suzie Brooks IG % 0.4 % Normal 0.0-0.5 [facility] Comment on above: Performed By: #### U DINA, LIPID, TSH, BNP, CMP, T7 #### [facility] [address] [address] [address] Suzie Brooks LYMPH # 3.7 103/ul Normal 1.2-3.8 [facility] Comment on above: Performed By: #### U DINA, LIPID, TSH, BNP, CMP, T7 #### [facility] [address] [place] [address] Dr. Suzie Brooks Lymphocytes/100 WBC (Bld) 26.6 % Normal 20.5-60.0 [facility] Comment on above: Performed By: #### U DINA, LIPID, TSH, BNP, CMP, T7 #### [facility] [address] [address] [address] Suzie Brooks MANUAL DIFF REQ NO Normal [facility] Comment on above: Performed By: #### U DINA, LIPID, TSH, BNP, CMP, T7 #### [facility] [address] [place] [address] Dr. Suzie Brooks MCH (RBC) [Entitic mass] 29.2 pg Normal 25.9-34.0 [facility] Comment on above: Performed By: #### U DINA, LIPID, TSH, BNP, CMP, T7 #### [facility] [address] [place] [address] Dr. Suzie Brooks MCHC (RBC) [Mass/Vol] 33.7 g/dL Normal 29.9-35.2 [facility] Comment on above: Performed By: #### U DINA, LIPID, TSH, BNP, CMP, T7 #### [facility] [address] [place] [address] Dr. Suzie Brooks MCV (RBC) [Entitic vol] 86.6 fL Normal 80.0-94.0 [facility] Comment on above: Performed By: #### U DINA, LIPID, TSH, BNP, CMP, T7 #### [facility] [address] [place] [address] Dr. Suzie Brooks MONO # 1.0 103/ul Critically high 0.3-0.8 [facility] Comment on above: Performed By: #### U DINA, LIPID, TSH, BNP, CMP, T7 #### [facility] [address] [address] [address] Suzie Brooks Monocytes/100 WBC (Bld) 7.2 % Normal 1.7-12.0 [facility] Comment on above: Performed By: #### U DINA, LIPID, TSH, BNP, CMP, T7 #### [facility] [address] [address] [address] Suzie Brooks NEUT # 8.7 103/ul Critically high 1.4-6.5 [facility] Comment on above: Performed By: #### U DINA, LIPID, TSH, BNP, CMP, T7 #### [facility] [address] [address] [address] Suzie Brooks Neutrophils/100 WBC (Bld) 62.9 % Normal 43.0-75.0 [facility] Comment on above: Performed By: #### U DINA, LIPID, TSH, BNP, CMP, T7 #### [facility] [address] [place] [address] Dr. Suzie Brooks Platelet mean volume (Bld) [Entitic vol] 9.4 fL Critically low 9.5-13.5 [facility] Comment on above: Performed By: #### U DINA, LIPID, TSH, BNP, CMP, T7 #### [facility] [address] [place] [address] Dr. Suzie Brooks PLT 277 103/ul Normal 150-450 [facility] Comment on above: Performed By: #### U DINA, LIPID, TSH, BNP, CMP, T7 #### [facility] [address] [address] [address] Suzie Brooks RBC 5.38 106/ul Normal 4.70-6.10 [facility] Comment on above: Performed By: #### U DINA, LIPID, TSH, BNP, CMP, T7 #### [facility] [address] [place] [address] Dr. Suzie Brooks WBC 13.8 103/ul Critically high 4.0-11.0 [facility] Comment on above: Performed By: #### U DINA, LIPID, TSH, BNP, CMP, T7 #### [facility] [address] [place], [place] [address] ABD/PELVIS WO CONon [...] appendix is normal. Electronically authenticated by: Reilly ALEKSANDRA CAST Date: 2022-02-16 20:51 Normal [facility] ER URINE PROFILEon 2 Bilirubin Ql (U) Negative Normal NEGATIVE [facility] Comment on above: Performed By: #### U DINA, LIPID, TSH, BNP, CMP, T7 #### [facility] [address] [address] [address] Suzie Brooks Clarity (U) CLEAR Normal CLEAR [facility] Comment on above: Performed By: #### U DINA, LIPID, TSH, BNP, CMP, T7 #### [facility] [address] [address] [address] Suzie Brooks Color (U) YELLOW Normal YELLOW [facility] Comment on above: Performed By: #### U DINA, LIPID, TSH, BNP, CMP, T7 #### [facility] [address] [place] [address] Dr. Suzie Brooks ERUAHD A micrscopic examina tion will be performed if indicated. Normal [facility] Comment on above: Performed By: #### U DINA, LIPID, TSH, BNP, CMP, T7 #### [facility] [address] [address] [address] Suzie Brooks Glucose Ql (U) Negative Normal NEGATIVE [facility] Comment on above: Performed By: #### U DINA, LIPID, TSH, BNP, CMP, T7 #### [facility] [address] [place] [address] Dr. Suzie Brooks Hemoglobin Ql (U) MODERATE Abnormal NEGATIVE [facility] Comment on above: Performed By: #### U DINA, LIPID, TSH, BNP, CMP, T7 #### [facility] [address] [address] [address] Suzie Brooks Ketones Ql (U) Negative Normal NEGATIVE [facility] Comment on above: Performed By: #### U DINA, LIPID, TSH, BNP, CMP, T7 #### [facility] [address] [address] [address] Suzie Brooks LEUKOCYTES Negative Normal NEGATIVE [facility] Comment on above: Performed By: #### U DINA, LIPID, TSH, BNP, CMP, T7 #### [facility] [address] [address] [address] Suzie Brooks Nitrite Ql (U) Negative Normal NEGATIVE [facility] Comment on above: Performed By: #### U DINA, LIPID, TSH, BNP, CMP, T7 #### [facility] [address] [place] [address] Dr. Suzie Brooks pH (U) 5.5 [pH] Normal 5-9 [facility] Comment on above: Performed By: #### U DINA, LIPID, TSH, BNP, CMP, T7 #### [facility] [address] [place] [address] Dr. Suzie Brooks SPEC GRAVITY >=1.030 Abnormal 1.005-<=1.02 5 [facility] Comment on above: Performed By: #### U DINA, LIPID, TSH, BNP, CMP, T7 #### [facility] [address] [place] [address] Dr. Suzie Brooks UA PROTEIN Negative Normal NEGATIVE/ TRACE [facility] Comment on above: Performed By: #### U DINA, LIPID, TSH, BNP, CMP, T7 #### [facility] [address] [place] [address] Dr. Suzie Brooks UR MICRO IND INDICATED Normal [facility] Comment on above: Performed By: #### U DINA, LIPID, TSH, BNP, CMP, T7 #### [facility] [address] [place] [address] Dr. Suzie Brooks Urobilinogen Qn (U) 0.2 {Behzad'U}/dL Normal 0.2 - 1. 0 [facility] Comment on above: Performed By: #### U DINA, LIPID, TSH, BNP, CMP, T7 #### [facility] [address] [place] [address] Dr. Suzie Brooks PROF CHEM 8 (BAS METB)on Anion gap [Moles/Vol] 12.2 mmol/L Normal [facility] Comment on above: Performed By: #### U DINA, LIPID, TSH, BNP, CMP, T7 #### [facility] [address] [address] [address] Suzie Brooks Calcium [Mass/Vol] 8.5 mg/dL Normal 8.5-10.1 [facility] Comment on above: Performed By: #### U DINA, LIPID, TSH, BNP, CMP, T7 #### [facility] [address] [address] [address] Suzie Brooks Chloride [Moles/Vol] 104 mmol/L Normal 98-107 [facility] Comment on above: Performed By: #### U DINA, LIPID, TSH, BNP, CMP, T7 #### [facility] [address] [address] [address] Suzie Brooks CO2 [Moles/Vol] 24.1 mmol/L Normal 21.0-32.0 [facility] Comment on above: Performed By: #### U DINA, LIPID, TSH, BNP, CMP, T7 #### [facility] [address] [place] [address] Dr. Suzie Brooks Creatinine [Mass/Vol] 1.14 mg/dL Normal 0.70-1.30 [facility] Comment on above: Performed By: #### U DINA, LIPID, TSH, BNP, CMP, T7 #### [facility] [address] [place] [address] Dr. Suzie Brooks EGFR-AF DJIBOUTIAN >60 Normal >=60 [facility] Comment on above: Performed By: #### U DINA, LIPID, TSH, BNP, CMP, T7 #### [facility] [address] [place] [address] Dr. Suzie Brooks EGFR-NON AF DJIBOUTIAN >60 Normal >=60 [facility] Comment on above: Performed By: #### U DINA, LIPID, TSH, BNP, CMP, T7 #### [facility] [address] [place] [address] Dr. Suzie Brooks Glucose [Mass/Vol] 114 mg/dL Critically high 74-[address] [facility] Comment on above: Performed By: #### U DINA, LIPID, TSH, BNP, CMP, T7 #### [facility] [address] [address] [address] Suzie Brooks Potassium [Moles/Vol] 4.3 mmol/L Normal 3.5-5.1 [facility] Comment on above: Performed By: #### U DINA, LIPID, TSH, BNP, CMP, T7 #### [facility] [address] [address] [address] Suzie Brooks Sodium [Moles/Vol] 136 mmol/L Normal 136-145 [facility] Comment on above: Performed By: #### U DINA, LIPID, TSH, BNP, CMP, T7 #### [facility] [address] [place] [address] Dr. Suzie Brooks Urea nitrogen [Mass/Vol] 14.0 mg/dL Normal 7.0-18.0 [facility] Comment on above: Performed By: #### U DINA, LIPID, TSH, BNP, CMP, T7 #### [facility] [address] [place] [address] Dr. Suzie Brooks Urea nitrogen/Creatinine [Mass ratio] 12.3 mg/mg Normal [facility] Comment on above: Performed By: #### U DINA, LIPID, TSH, BNP, CMP, T7 #### [facility] [address] [place] [address] Dr. Suzie Brooks URINE MICROSCOPIC ONLYon BACTERIA NONE SEEN Normal NONE SEEN [facility] Comment on above: Performed By: #### U DINA, LIPID, TSH, BNP, CMP, T7 #### [facility] [address] [place] [address] Dr. Suzie Brooks Bacteria identified Cx Nom (U) NOT INDICATED Normal [facility] Comment on above: Performed By: #### U DINA, LIPID, TSH, BNP, CMP, T7 #### [facility] [address] [place] [address] Dr. Suzie Brooks CAST NONE SEEN Normal NONE SEEN [facility] Comment on above: Performed By: #### U DINA, LIPID, TSH, BNP, CMP, T7 #### [facility] [address] [place] [address] Dr. Suzie Brooks Crystals LM Nom (Urine sed) NONE SEEN Normal NONE SEEN [facility] Comment on above: Performed By: #### U DINA, LIPID, TSH, BNP, CMP, T7 #### [facility] [address] [address] [address] Suzie Brooks Epithelial cells LM Ql (Urine sed) RARE Normal NONE SEEN /RARE [facility] Comment on above: Performed By: #### U DINA, LIPID, TSH, BNP, CMP, T7 #### [facility] [address] [address] [address] Suzie Brooks MUCOUS NONE SEEN Normal NONE SEEN [facility] Comment on above: Performed By: #### U DINA, LIPID, TSH, BNP, CMP, T7 #### [facility] [address] [address] [address] Suzie Brooks RBC 5-10 Abnormal 0-2 [facility] Comment on above: Performed By: #### U DINA, LIPID, TSH, BNP, CMP, T7 #### [facility] [address] [address] [address] Suzie Brooks WBC NONE SEEN Normal NONE SEEN [facility] Comment on above: Performed By: #### U DINA, LIPID, TSH, BNP, CMP, T7 #### [facility] [address] [address] [address] Suzie Brooks CITRATE URINE 24HRon 022 Citric Acid, U, 24hr 1312 mg/24 hr Critically high 320-124 0 [facility] Comment on above: Result Comment: This test was developed and its performance characteristics determined by [facility]. It has not been cleared or approved by the Food and Drug Administration. Performed By: #### U DINA, LIPID, TSH, BNP, CMP, T7 #### [facility] [address] [address] [address] Suzie Brooks Citric Acid, Urine 610 mg/L Normal Undefined [facility] Comment on above: Performed By: #### U DINA, LIPID, TSH, BNP, CMP, T7 #### [facility] [address] [address] [address] Suzie Brooks OXALATE 24HR URINEon 022 Oxalates, Urine 11 mg/L Normal Undefined [facility] Comment on above: Performed By: #### O [id number] #### [facility] [address] [place] [address] Dr. Suzie Brooks Oxalates, Urine 24hr 24 mg/24 hr Normal 7-44 [facility] Comment on above: Performed By: #### O [id number] #### [facility] [address] [place] [address] Dr. Suzie Brooks MAGNESIUM 24HR URINEon 02-02 Magnesium 24hr Urine 77.4 mg/24 hr Normal 12.0-293.[address] [facility] Comment on above: Performed By: #### M AG24 #### [facility] [address] [place] [address] Dr. Suzie Brooks Magnesium UR 3.6 mg/dL Normal Not Estab. The [facility] Comment on above: Performed By: #### M AG24 #### [facility] [address] [place] [address] Dr. Suzie Brooks PHOSPHORUS 24HR URINEon 01-10 Phosphorus, Urine 44.1 mg/dL Normal Not Estab. The [facility] Comment on above: Performed By: #### U DINA, LIPID, TSH, BNP, CMP, T7 #### [facility] [address] [place] [address] Dr. Suzie Brooks Phosphorus, Urine 24hr 948 mg/24 hr Normal 390-1425 [facility] Comment on above: Performed By: #### U DINA, LIPID, TSH, BNP, CMP, T7 #### [facility] [address] [place] [address] Dr. Suzie Brooks URIC ACID 24 HR URINEon 01-10 Uric Acid, Urine 35.4 mg/dL Normal Not Estab. [facility] Comment on above: Performed By: #### U DINA, LIPID, TSH, BNP, CMP, T7 #### [facility] [address] [place] [address] Dr. Suzie Brooks Uric Acid, Urine 24hr 761.1 mg/24 hr Normal 182.4-936.8 [facility] Comment on above: Performed By: #### U DINA, LIPID, TSH, BNP, CMP, T7 #### [facility] [address] [address] [address] Suzie Brooks CALCIUM 24 HR URINEon 2021 CALC, 24 HR UR 187.0 mg/24 hr Normal 100.0-300.0 [facility] Comment on above: Performed By: #### U DINA, LIPID, TSH, BNP, CMP, T7 #### [facility] [address] [place] [address] Dr. Suzie Brooks UR CALCIUM 8.7 mg/dL Normal 5.1-21.0 [facility] Comment on above: Performed By: #### U DINA, LIPID, TSH, BNP, CMP, T7 #### [facility] [address] [place] [address] Dr. Suzie Brooks UR TOT VOL 2150 ml/24 HR Normal [facility] Comment on above: Performed By: #### U DINA, LIPID, TSH, BNP, CMP, T7 #### [facility] [address] [place] [address] Dr. Suzie Brooks CREA 24 HR URINEon 2 CREA, 24 HR UR 1983.59 mg/24 hr Normal 1,000.00- 2,0 00.00 [facility] Comment on above: Performed By: #### U DINA, LIPID, TSH, BNP, CMP, T7 #### [facility] [address] [place] [address] Dr. Suzie Brooks URINE CREAT 92.26 mg/dL Normal 20.00-300.00 [facility] Comment on above: Performed By: #### U DINA, LIPID, TSH, BNP, CMP, T7 #### [facility] [address] [place] [address] Dr. Suzie Brooks SODIUM 24 HR URINEon 2 022 NA, 24 HR UR 172 mmol/24 hr Normal 40-220 [facility] Comment on above: Performed By: #### U DINA, LIPID, TSH, BNP, CMP, T7 #### [facility] [address] [place] [address] Dr. Suzie Brooks Sodium (U) [Moles/Vol] 80 mmol/L Normal 30-90 [facility] Comment on above: Performed By: #### U DINA, LIPID, TSH, BNP, CMP, T7 #### [facility] [address] [place] [address] Dr. Suzie Brooks PTH INTACTon 01-31-2022 PTH, Intact 24 pg/mL Normal 15-65 [facility] Comment on above: Performed By: #### U DINA, LIPID, TSH, BNP, CMP, T7 #### [facility] [address] [place] [address] Dr. Suzie Brooks BUNon 01-30-2022 Urea nitrogen [Mass/Vol] 12.0 mg/dL Normal 7.0-18.0 [facility] Comment on above: Performed By: #### U DINA, LIPID, TSH, BNP, CMP, T7 #### [facility] [address] [place] [address] Dr. Suzie Brooks CALCIUMon 01-30-2022 Calcium [Mass/Vol] 8.6 mg/dL Normal 8.5-10.1 [facility] Comment on above: Performed By: #### U DINA, LIPID, TSH, BNP, CMP, T7 #### [facility] [address] [place] [address] Dr. Suzie Brooks CHLORIDEon 01-30-2022 Chloride [Moles/Vol] 104 mmol/L Normal 98-107 [facility] Comment on above: Performed By: #### U DINA, LIPID, TSH, BNP, CMP, T7 #### [facility] [address] [place] [address] Dr. Suzie Brooks CO2on 01-30-2022 CO2 [Moles/Vol] 29.3 mmol/L Normal 21.0-32.0 [facility] Comment on above: Performed By: #### U DINA, LIPID, TSH, BNP, CMP, T7 #### [facility] [address] [place] [address] Dr. Suzie Brooks CREATININEon 01-30-2022 Creatinine [Mass/Vol] 0.92 mg/dL Normal 0.70-1.30 [facility] Comment on above: Performed By: #### U DINA, LIPID, TSH, BNP, CMP, T7 #### [facility] [address] [address] [address] Suzie Brooks EGFR-AF DJIBOUTIAN >60 Normal >=60 [facility] Comment on above: Performed By: #### U DINA, LIPID, TSH, BNP, CMP, T7 #### [facility] [address] [address] [address] Suzie Brooks EGFR-NON AF DJIBOUTIAN >60 Normal >=60 [facility] Comment on above: Performed By: #### U DINA, LIPID, TSH, BNP, CMP, T7 #### [facility] [address] [address] [address] Suzie Brooks NAon 01-30-2022 Sodium [Moles/Vol] 140 mmol/L Normal 136-145 [facility] Comment on above: Performed By: #### U DINA, LIPID, TSH, BNP, CMP, T7 #### [facility] [address] [address] [address] Suzie Brooks POTASSIUMon 01-30-2022 Potassium [Moles/Vol] 4.0 mmol/L Normal 3.5-5.1 [facility] Comment on above: Performed By: #### U DINA, LIPID, TSH, BNP, CMP, T7 #### [facility] [address] [address] [address] Suzie Brooks URIC ACID SERUMon 01-30-2022 Urate [Mass/Vol] 5.2 mg/dL Normal 3.5-7.2 [facility] Comment on above: Performed By: #### U DINA, LIPID, TSH, BNP, CMP, T7 #### [facility] [id number] Suzie Brooks US KIDNEYSon 12-18-2021 US [...] by: BEHZAD CARRASQUILLO Date: 2021-12-18 09:51 Normal [facility] XR KUB 1 VIEWon 11-21-2021 XR KUB [...] by: BEHZAD CARRASQUILLO Date: 2021-11-21 09:45 Normal [facility] XR KUBon 11-15-2021 XR KUB [facility] [address] [place] [address] XRay Report Signed Patient: Tom Aparicio MR#: [id number] 4 : 1950 Acct:[id number] Age/Sex: 71 / M ADM Date: 11/15/21 Loc: [place] Room: Type: [facility] Attending Dr: Miki Zeng MD Ordering Provider: [...] Hancock Jr., M.D.11/15/2021 10:43 AM Dictation Location: [place] [address] Transcribed By: [facility] 11/15/21 1043 Dictated By: Yared Hancock Jr, MD 11/15/21 1039 Signed By: 11/15/21 1043 Normal [facility] COVID-19 [facility] [place] SARS-CoV-2 (COVID-19) RNA SUKHJINDER+probe Ql (Unsp spec) Negative Normal Negative [facility] Comment on above: Order Comment: 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 This test has not been FDA [...] is terminated or revoked sooner. PERFORMED BY: [facility] [place] [address] PATHOLOGIST CRIMINAL ANALYST JIA MINAYA M.D. Performed By: #### C OVID 19 [facility] [place] #### [facility] [address] COVID-19 Positive/NegativeOr dered By: Miki Zeng on 11-13-2021 SARS-CoV-2 (COVID-19) N gene SUKHJINDER+probe Ql (Resp) Negative Negative [facility] Comment on above: Testing for SARS-CoV -2 by RT-PCRThis test was developed and its performance characteristics determined by [employer] ([employer]) and validated at the [facility]. This test has not been FDA [...] sooner. CALCULI, URINARYon 2 2,8 Dihydroxyadenine Normal [facility] Comment on above: Performed By: #### U DINA, LIPID, TSH, BNP, CMP, T7 #### [facility] [address] [address] [address] Suzie Brooks Ammonium Acid Urate Normal [facility] Comment on above: Performed By: #### U DINA, LIPID, TSH, BNP, CMP, T7 #### [facility] [address] [address] [address] Suzie Brooks Bilirubin Ql (U) Normal [facility] Comment on above: Performed By: #### U DINA, LIPID, TSH, BNP, CMP, T7 #### [facility] [address] [address] [address] Suzie Brooks Ca Oxalate Dihydrate Normal [facility] Comment on above: Performed By: #### U DINA, LIPID, TSH, BNP, CMP, T7 #### [facility] [address] [address] [address] Suzie Brooks CaHPO4 (Brushite) Normal [facility] Comment on above: Performed By: #### U DINA, LIPID, TSH, BNP, CMP, T7 #### [facility] [address] [address] [address] Suzie Brooks Calcium Bilirubinate Normal [facility] Comment on above: Performed By: #### U DINA, LIPID, TSH, BNP, CMP, T7 #### [facility] [address] [address] [address] Suzie Brooks Calcium Carbonate Normal [facility] Comment on above: Performed By: #### U DINA, LIPID, TSH, BNP, CMP, T7 #### [facility] [address] [address] [address] Suzie Brooks Calcium Oxalate Monohydrate 70 % Normal [facility] Comment on above: Performed By: #### U DINA, LIPID, TSH, BNP, CMP, T7 #### [facility] [address] [address] [address] Suzie Brooks Calcium Palmitate Normal [facility] Comment on above: Performed By: #### U DINA, LIPID, TSH, BNP, CMP, T7 #### [facility] [address] [address] [address] Suzie Brooks Calcium Phosphate Normal [facility] Comment on above: Performed By: #### U DINA, LIPID, TSH, BNP, CMP, T7 #### [facility] [address] [address] [address] Suzie Brooks Calcium Stearate Normal [facility] Comment on above: Performed By: #### U DINA, LIPID, TSH, BNP, CMP, T7 #### [facility] [address] [address] [address] Suzie Brooks Carbonate Apatite Normal [facility] Comment on above: Performed By: #### U DINA, LIPID, TSH, BNP, CMP, T7 #### [facility] [address] [address] [address] Suzie Brooks Cellular Material Normal [facility] Comment on above: Performed By: #### U DINA, LIPID, TSH, BNP, CMP, T7 #### [facility] [address] [address] [address] Suzie Brooks Cholesterol [facility] Comment on above: Performed By: #### U DINA, LIPID, TSH, BNP, CMP, T7 #### [facility] [address] [address] [address] Suzie Brooks Color (U) Brown Normal [facility] Comment on above: Performed By: #### U DINA, LIPID, TSH, BNP, CMP, T7 #### [facility] [address] [address] [address] Suzie Brooks Comment [facility] Comment on above: Performed By: #### U DINA, LIPID, TSH, BNP, CMP, T7 #### [facility] [address] [address] [address] Suzie Brooks Comment: Comment Normal [facility] Comment on above: Result Comment: Fantasma baez questions regarding Calculi Analysis contact [facility] at: [phone]. Performed By: #### U DINA, LIPID, TSH, BNP, CMP, T7 #### [facility] [address] [place] [address] Dr. Suzie Brooks Composition Comment [facility] Comment on above: Result Comment: Perc entage (Represents the % composition) Performed By: #### U DINA, LIPID, TSH, BNP, CMP, T7 #### [facility] [address] [address] [address] Suzie Brooks Cystine [facility] Comment on above: Performed By: #### U DINA, LIPID, TSH, BNP, CMP, T7 #### [facility] [address] [address] [address] Suzie Brooks Disclaimer: Comment [facility] Comment on above: Result Comment: This test was developed and its performance characteristics determined by [facility]. It has not been cleared or approved by the Food and Drug Administration. Performed By: #### U DINA, LIPID, TSH, BNP, CMP, T7 #### [facility] [address] [address] [address] Suzie Brooks Dried Blood Normal [facility] Comment on above: Performed By: #### U DINA, LIPID, TSH, BNP, CMP, T7 #### [facility] [address] [address] [address] Suzie Brooks Drug or Metabolite Normal [facility] Comment on above: Performed By: #### U DINA, LIPID, TSH, BNP, CMP, T7 #### [facility] [address] [address] [address] Suzie Brooks Hydroxyapatite Normal [facility] Comment on above: Performed By: #### U DINA, LIPID, TSH, BNP, CMP, T7 #### [facility] [address] [address] [address] Suzie Brooks Mg NH4 PO4 (Struvite) Normal [facility] Comment on above: Performed By: #### U DINA, LIPID, TSH, BNP, CMP, T7 #### [facility] [address] [address] [address] Suzie Brooks MgHPO4 (Newberyite) Normal [facility] Comment on above: Performed By: #### U DINA, LIPID, TSH, BNP, CMP, T7 #### [facility] [address] [address] [address] Suzie Brooks Other component(s) Normal [facility] Comment on above: Performed By: #### U DINA, LIPID, TSH, BNP, CMP, T7 #### [facility] [address] [address] [address] Suzie Brooks PDF . Normal [facility] Comment on above: Performed By: #### U DINA, LIPID, TSH, BNP, CMP, T7 #### [facility] [address] [address] [address] Suzie Brooks Photo Comment [facility] Comment on above: Result Comment: Phot ograph will follow under a separate cover Performed By: #### U DINA, LIPID, TSH, BNP, CMP, T7 #### [facility] [address] [address] [address] Suzie Brooks Please note: Comment Normal [facility] Comment on above: Result Comment: Calc shamika report will follow via computer, mail or printed circuit boards solder leveler delivery. Performed By: #### U DINA, LIPID, TSH, BNP, CMP, T7 #### [facility] [address] [address] [address] Suzie Brooks Size 3x2 Normal [facility] Comment on above: Result Comment: Mult iple pieces received. Dimensions of the largest piece reported. Performed By: #### U DINA, LIPID, TSH, BNP, CMP, T7 #### [facility] [address] [address] [address] Suzie Brooks Sodium Acid Urate Normal [facility] Comment on above: Performed By: #### U DINA, LIPID, TSH, BNP, CMP, T7 #### [facility] [address] [address] [address] Suzie Brooks Source Comment [facility] Comment on above: Result Comment: Rigceci t Ureter Performed By: #### U DINA, LIPID, TSH, BNP, CMP, T7 #### [facility] [address] [address] [address] Suzie Brooks Triamterene [facility] Comment on above: Performed By: #### U DINA, LIPID, TSH, BNP, CMP, T7 #### [facility] [address] [address] [address] Suzie Brooks Uric Acid 30 % [facility] Comment on above: Performed By: #### U DINA, LIPID, TSH, BNP, CMP, T7 #### [facility] [address] [address] [address] Suzie Brooks Uric Acid Dihydrate Normal [facility] Comment on above: Performed By: #### U DINA, LIPID, TSH, BNP, CMP, T7 #### [facility] [address] [address] [address] Suzie Brooks Weight 12 mg Normal [facility] Comment on above: Performed By: #### U DINA, LIPID, TSH, BNP, CMP, T7 #### [facility] [address] [address] [address] Suzie Brooks Xanthine Normal [facility] Comment on above: Performed By: #### U DINA, LIPID, TSH, BNP, CMP, T7 #### [facility] [address] [place] [address] Dr. Suzie Brooks XR KUB 1 VIEWon [...] by: RAFAEL GRAVES Date: 2021-11-12 13:18 Normal [facility] XR CHEST 2 Von 11-08-2021 XR CHEST [...] by: CARLOS GROSS Date: 2021-11-08 15:50 Normal [facility] CBC AUTO DIFFon 11-07-2021 BASO # 0.0 103/ul Normal 0.0-0.1 [facility] Comment on above: Performed By: #### U DINA, LIPID, TSH, BNP, CMP, T7 #### [facility] [address] [address] [address] Suzie Brooks Basophils/100 WBC (Bld) 0.2 % Normal 0.2-2.0 [facility] Comment on above: Performed By: #### U DINA, LIPID, TSH, BNP, CMP, T7 #### [facility] [address] [address] [address] Suzie Brooks EO # 0.0 103/ul Normal 0.0-0.7 [facility] Comment on above: Performed By: #### U DINA, LIPID, TSH, BNP, CMP, T7 #### [facility] [address] [address] [address] Suzie Brooks Eosinophils/100 WBC (Bld) 0.0 % Critically low 0.9-7.0 [facility] Comment on above: Performed By: #### U DINA, LIPID, TSH, BNP, CMP, T7 #### [facility] [address] [address] [address] Suzie Brooks Erythrocyte distribution width (RBC) [Ratio] 14.0 % Normal 11.0-15.0 [facility] Comment on above: Performed By: #### U DINA, LIPID, TSH, BNP, CMP, T7 #### [facility] [address] [place] [address] Dr. Suzie Brooks Hematocrit (Bld) [Volume fraction] 41.8 % Critically low 42.0-54.0 [facility] Comment on above: Performed By: #### U DINA, LIPID, TSH, BNP, CMP, T7 #### [facility] [address] [address] [address] Suzie Brooks Hemoglobin (Bld) [Mass/Vol] 13.7 g/dL Critically low 14.0-18.0 [facility] Comment on above: Performed By: #### U DINA, LIPID, TSH, BNP, CMP, T7 #### [facility] [address] [place] [address] Dr. Suzie Brooks IG # 0.14 10e3/ul Critically high 0.00-0.03 [facility] Comment on above: Performed By: #### U DINA, LIPID, TSH, BNP, CMP, T7 #### [facility] [address] [address] [address] Suzie Brooks IG % 0.9 % Critically high 0.0-0.5 [facility] Comment on above: Performed By: #### U DINA, LIPID, TSH, BNP, CMP, T7 #### [facility] [address] [place] [address] Dr. Suzie Brooks LYMPH # 1.6 103/ul Normal 1.2-3.8 [facility] Comment on above: Performed By: #### U DINA, LIPID, TSH, BNP, CMP, T7 #### [facility] [address] [place] [address] Dr. Suzie Brooks Lymphocytes/100 WBC (Bld) 10.2 % Critically low 20.5-60.0 [facility] Comment on above: Performed By: #### U DINA, LIPID, TSH, BNP, CMP, T7 #### [facility] [address] [place] [address] Dr. Suzie Brooks MANUAL DIFF REQ NO Normal [facility] [facility] Comment on above: Performed By: #### U DINA, LIPID, TSH, BNP, CMP, T7 #### [facility] [address] [place] [address] Dr. Suzie Brooks MCH (RBC) [Entitic mass] 28.8 pg Normal 25.9-34.0 [facility] Comment on above: Performed By: #### U DINA, LIPID, TSH, BNP, CMP, T7 #### [facility] [address] [place] [address] Dr. Suzie Brooks MCHC (RBC) [Mass/Vol] 32.8 g/dL Normal 29.9-35.2 [facility] Comment on above: Performed By: #### U DINA, LIPID, TSH, BNP, CMP, T7 #### [facility] [address] [place] [address] Dr. Suzie Brooks MCV (RBC) [Entitic vol] 87.8 fL Normal 80.0-94.0 [facility] Comment on above: Performed By: #### U DINA, LIPID, TSH, BNP, CMP, T7 #### [facility] [address] [place] [address] Dr. Suzie Brooks MONO # 1.0 103/ul Critically high 0.3-0.8 [facility] Comment on above: Performed By: #### U DINA, LIPID, TSH, BNP, CMP, T7 #### [facility] [address] [address] [address] Suzie Brooks Monocytes/100 WBC (Bld) 6.6 % Normal 1.7-12.0 [facility] Comment on above: Performed By: #### U DINA, LIPID, TSH, BNP, CMP, T7 #### [facility] [address] [address] [address] Suzie Brooks NEUT # 13.0 103/ul Critically high 1.4-6.5 [facility] Comment on above: Performed By: #### U DINA, LIPID, TSH, BNP, CMP, T7 #### [facility] [address] [place] [address] Dr. Suzie Brooks Neutrophils/100 WBC (Bld) 82.1 % Critically high 43.0-75.0 [facility] Comment on above: Performed By: #### U DINA, LIPID, TSH, BNP, CMP, T7 #### [facility] [address] [place] [address] Dr. Suzie Brooks Platelet mean volume (Bld) [Entitic vol] 9.3 fL Critically low 9.5-13.5 [facility] Comment on above: Performed By: #### U DINA, LIPID, TSH, BNP, CMP, T7 #### [facility] [address] [place] [address] Dr. Suzie Brooks PLT 301 103/ul Normal 150-450 [facility] Comment on above: Performed By: #### U DINA, LIPID, TSH, BNP, CMP, T7 #### [facility] [address] [place] [address] Dr. Suzie Brooks RBC 4.76 106/ul Normal 4.70-6.10 [facility] Comment on above: Performed By: #### U DINA, LIPID, TSH, BNP, CMP, T7 #### [facility] [address] [place] [address] Dr. Suzie Brooks WBC 15.9 103/ul Critically high 4.0-11.0 [facility] Comment on above: Performed By: #### U DINA, LIPID, TSH, BNP, CMP, T7 #### [facility] [address] [place] [address] Dr. Suzie Brooks POINT OF CARE GLUCOSEon 10-11 Glucose [Mass/Vol] 128 mg/dL Critically high 74-[address] [facility] Comment on above: Performed By: #### U DINA, LIPID, TSH, BNP, CMP, T7 #### [facility] [address] [place] [address] Dr. Suzie Brooks PROF 14(COMP METB)on 022 Albumin [Mass/Vol] 3.1 g/dL Critically low 3.4-5.0 [facility] Comment on above: Performed By: #### M AG24 #### [facility] [address] [place] [address] Dr. Suzie Brooks Albumin/Globulin [Mass ratio] 0.9 {ratio} Normal [facility] Comment on above: Performed By: #### M AG24 #### [facility] [address] [place] [address] Dr. Suzie Brooks ALP [Catalytic activity/Vol] 52 U/L Normal 46-116 [facility] Comment on above: Performed By: #### M AG24 #### [facility] [address] [place] [address] Dr. Suzie Brooks ALT [Catalytic activity/Vol] 39 U/L Normal 16-63 [facility] Comment on above: Performed By: #### M AG24 #### [facility] [address] [place] [address] Dr. Suzie Brooks Anion gap [Moles/Vol] 14.7 mmol/L Normal [facility] Comment on above: Performed By: #### M AG24 #### [facility] [address] [place] [address] Dr. Suzie Brooks AST [Catalytic activity/Vol] 27 U/L Normal 15-37 [facility] Comment on above: Performed By: #### M AG24 #### [facility] [address] [place] [address] Dr. Suzie Brooks Bilirubin [Mass/Vol] 0.4 mg/dL Normal 0.2-1.3 [facility] Comment on above: Performed By: #### M AG24 #### [facility] [address] [place] [address] Dr. Suzie Brooks Calcium [Mass/Vol] 7.7 mg/dL Critically low 8.5-10.1 Th e [facility] Comment on above: Performed By: #### M AG24 #### [facility] [address] [place] [address] Dr. Suzie Brooks Chloride [Moles/Vol] 104 mmol/L Normal 98-107 [facility] Comment on above: Performed By: #### M AG24 #### [facility] [address] [place] [address] Dr. Suzie Brooks CO2 [Moles/Vol] 23.4 mmol/L Normal 22.0-30.0 [facility] Comment on above: Performed By: #### M AG24 #### [facility] [address] [place] [address] Dr. Suzie Brooks Creatinine [Mass/Vol] 1.03 mg/dL Normal 0.66-1.25 [facility] Comment on above: Performed By: #### M AG24 #### [facility] [address] [place] [address] Dr. Suzie Brooks EGFR-AF DJIBOUTIAN >60 Normal >=60 [facility] Comment on above: Performed By: #### M AG24 #### [facility] [address] [place] [address] Dr. Suzie Brooks EGFR-NON AF DJIBOUTIAN >60 Normal >=60 [facility] Comment on above: Performed By: #### M AG24 #### [facility] [address] [place] [address] Dr. Suzie Brooks Globulin (S) [Mass/Vol] 3.5 g/dL Normal [facility] Comment on above: Performed By: #### M AG24 #### [facility] [address] [place] [address] Dr. Suzie Brooks Glucose [Mass/Vol] 142 mg/dL Critically high 74-[address] [facility] Comment on above: Performed By: #### M AG24 #### [facility] [address] [place] [address] Dr. Suzie Brooks Potassium [Moles/Vol] 4.1 mmol/L Normal 3.4-5.0 [facility] Comment on above: Performed By: #### M AG24 #### [facility] [address] [place] [address] Dr. Suzie Brooks Protein [Mass/Vol] 6.6 g/dL Normal 6.1-8.2 [facility] Comment on above: Performed By: #### M AG24 #### [facility] [address] [place] [address] Dr. Suzie Brooks Sodium [Moles/Vol] 138 mmol/L Normal 137-145 [facility] Comment on above: Performed By: #### M AG24 #### [facility] [address] [place] [address] Dr. Suzie Brooks Urea nitrogen [Mass/Vol] 15.0 mg/dL Normal 7.0-18.0 [facility] Comment on above: Performed By: #### M AG24 #### [facility] [address] [place] [address] Dr. Suzie Brooks Urea nitrogen/Creatinine [Mass ratio] 14.6 mg/mg Normal [facility] Comment on above: Performed By: #### M AG24 #### [facility] [address] [place] [address] Dr. Suzie Brooks CBC AUTO DIFFon 11-06-2021 BASO # 0.1 103/ul Normal 0.0-0.1 [facility] Comment on above: Performed By: #### U DINA, LIPID, TSH, BNP, CMP, T7 #### [facility] [address] [place] [address] Dr. Suzie Brooks Basophils/100 WBC (Bld) 0.5 % Normal 0.2-2.0 [facility] Comment on above: Performed By: #### U DINA, LIPID, TSH, BNP, CMP, T7 #### [facility] [address] [place] [address] Dr. Suzie Brooks EO # 0.3 103/ul Normal 0.0-0.7 [facility] Comment on above: Performed By: #### U DINA, LIPID, TSH, BNP, CMP, T7 #### [facility] [address] [place] [address] Dr. Suzie Brooks Eosinophils/100 WBC (Bld) 2.1 % Normal 0.9-7.0 [facility] Comment on above: Performed By: #### U DINA, LIPID, TSH, BNP, CMP, T7 #### [facility] [address] [place] [address] Dr. Suzie Brooks Erythrocyte distribution width (RBC) [Ratio] 13.8 % Normal 11.0-15.0 [facility] Comment on above: Performed By: #### U DINA, LIPID, TSH, BNP, CMP, T7 #### [facility] [address] [place] [address] Dr. Suzie Brooks Hematocrit (Bld) [Volume fraction] 46.9 % Normal 42.0-54.0 [facility] Comment on above: Performed By: #### U DINA, LIPID, TSH, BNP, CMP, T7 #### [facility] [address] [place] [address] Dr. Suzie Brooks Hemoglobin (Bld) [Mass/Vol] 15.4 g/dL Normal 14.0-18.0 [facility] Comment on above: Performed By: #### U DINA, LIPID, TSH, BNP, CMP, T7 #### [facility] [address] [place] [address] Dr. Suzie Brooks IG # 0.05 10e3/ul Critically high 0.00-0.03 [facility] Comment on above: Performed By: #### U DINA, LIPID, TSH, BNP, CMP, T7 #### [facility] [address] [place] [address] Dr. Suzie Brooks IG % 0.4 % Normal 0.0-0.5 [facility] Comment on above: Performed By: #### U DINA, LIPID, TSH, BNP, CMP, T7 #### [facility] [address] [place] [address] Dr. Suzie Brooks LYMPH # 2.8 103/ul Normal 1.2-3.8 [facility] Comment on above: Performed By: #### U DINA, LIPID, TSH, BNP, CMP, T7 #### [facility] [address] [address] [address] Suzie Brooks Lymphocytes/100 WBC (Bld) 22.5 % Normal 20.5-60.0 [facility] Comment on above: Performed By: #### U DINA, LIPID, TSH, BNP, CMP, T7 #### [facility] [address] [place] [address] Dr. Suzie Brooks MANUAL DIFF REQ NO Normal [facility] Comment on above: Performed By: #### U DINA, LIPID, TSH, BNP, CMP, T7 #### [facility] [address] [place] [address] Dr. Suzie Brooks MCH (RBC) [Entitic mass] 28.6 pg Normal 25.9-34.0 [facility] Comment on above: Performed By: #### U DINA, LIPID, TSH, BNP, CMP, T7 #### [facility] [address] [place] [address] Dr. Suzie Brooks MCHC (RBC) [Mass/Vol] 32.8 g/dL Normal 29.9-35.2 [facility] Comment on above: Performed By: #### U DINA, LIPID, TSH, BNP, CMP, T7 #### [facility] [address] [place] [address] Dr. Suzie Brooks MCV (RBC) [Entitic vol] 87.0 fL Normal 80.0-94.0 [facility] Comment on above: Performed By: #### U DINA, LIPID, TSH, BNP, CMP, T7 #### [facility] [address] [place] [address] Dr. Suzie Brooks MONO # 0.9 103/ul Critically high 0.3-0.8 [facility] Comment on above: Performed By: #### U DINA, LIPID, TSH, BNP, CMP, T7 #### [facility] [address] [place] [address] Dr. Suzie Brooks Monocytes/100 WBC (Bld) 6.9 % Normal 1.7-12.0 [facility] Comment on above: Performed By: #### U DINA, LIPID, TSH, BNP, CMP, T7 #### [facility] [address] [address] [address] Suzie Brooks NEUT # 8.4 103/ul Critically high 1.4-6.5 [facility] Comment on above: Performed By: #### U DINA, LIPID, TSH, BNP, CMP, T7 #### [facility] [address] [address] [address] Suzie Brooks Neutrophils/100 WBC (Bld) 67.6 % Normal 43.0-75.0 [facility] Comment on above: Performed By: #### U DINA, LIPID, TSH, BNP, CMP, T7 #### [facility] [address] [address] [address] Suzie Brooks Platelet mean volume (Bld) [Entitic vol] 9.6 fL Normal 9.5-13.5 [facility] Comment on above: Performed By: #### U DINA, LIPID, TSH, BNP, CMP, T7 #### [facility] [address] [address] [address] Suzie Brooks PLT 284 103/ul Normal 150-450 [facility] Comment on above: Performed By: #### U DINA, LIPID, TSH, BNP, CMP, T7 #### [facility] [address] [address] [address] Suzie Brooks RBC 5.39 106/ul Normal 4.70-6.10 [facility] Comment on above: Performed By: #### U DINA, LIPID, TSH, BNP, CMP, T7 #### [facility] [address] [address] [address] Suzie Brooks WBC 12.5 103/ul Critically high 4.0-11.0 [facility] Comment on above: Performed By: #### U DINA, LIPID, TSH, BNP, CMP, T7 #### [facility] [address] [address] [address] Suzie Brooks CULTURE BLOODon 11-06-2021 Microscopic examination of blood, culture Culture Observations: NO GROWTH AT 5 DAYS. Normal [facility] Comment on above: Performed By: #### M AG24 #### [facility] [address] [place] [address] Dr. Suzie Brooks CULTURE URINEon 11-06-2021 CULTURE URINE Culture Observations : NO GROWTH. Normal [facility] Comment on above: Performed By: #### M AG24 #### [facility] [address] [address] [address] Suzie Brooks Covid-19 PCR (CVDTB)on 10-10 SARS-CoV-2 (COVID-19) RNA SUKHJINDER+probe Ql (Unsp spec) Not detected Normal NOT DETECTED The [facility] Comment on above: Result Comment: When diagnostic testing is negative, the possibility of a false negative should be considered in the context of a patient's recent exposures and the presence of clinical signs and symptoms consistent with SARS-CoV-2. This test is not yet approved or cleared by the [place] Food and Drug Administration (FDA). This test was developed by [employer], [place], [place]. The performance characteristics of this test were validated by The [facility]. The results are not intended to be used as the sole means for clinical diagnosis or patient management decisions. The [facility] is authorized under Clinical Laboratory Improvement Amendments [...] for this test is supported by the [employer] of Health and Human Service's declaration that [...] TSH, BNP, CMP, T7 #### [facility] [address] [place] [address] Dr. Suzie Brooks ER URINE PROFILEon 2 Bilirubin Ql (U) Negative Normal NEGATIVE [facility] Comment on above: Performed By: #### U DINA, LIPID, TSH, BNP, CMP, T7 #### [facility] [address] [place] [address] Dr. Suzie Brooks Clarity (U) CLEAR Normal CLEAR [facility] Comment on above: Performed By: #### U DINA, LIPID, TSH, BNP, CMP, T7 #### [facility] [address] [place] [address] Dr. Suzie Brooks Color (U) YELLOW Normal YELLOW [facility] Comment on above: Performed By: #### U DINA, LIPID, TSH, BNP, CMP, T7 #### [facility] [address] [place] [address] Dr. Suzie Brooks ERURIP A micrscopic examina tion will be performed if indicated. Normal [facility] Comment on above: Performed By: #### U DINA, LIPID, TSH, BNP, CMP, T7 #### [facility] [address] [place] [address] Dr. Suzie Brooks Glucose Ql (U) Negative Normal NEGATIVE [facility] Comment on above: Performed By: #### U DINA, LIPID, TSH, BNP, CMP, T7 #### [facility] [address] [place] [address] Dr. Suzie Brooks Hemoglobin Ql (U) LARGE Abnormal NEGATIVE [facility] Comment on above: Performed By: #### U DINA, LIPID, TSH, BNP, CMP, T7 #### [facility] [address] [place] [address] Dr. Suzie Brooks Ketones Ql (U) Negative Normal NEGATIVE [facility] Comment on above: Performed By: #### U DINA, LIPID, TSH, BNP, CMP, T7 #### [facility] [address] [place] [address] Dr. Suzie Brooks LEUKOCYTES TRACE Abnormal NEGATIVE [facility] Comment on above: Performed By: #### U DINA, LIPID, TSH, BNP, CMP, T7 #### [facility] [address] [place], [place] [id number] Dr. Suzie Brooks Nitrite Ql (U) Negative Normal NEGATIVE [facility] Comment on above: Performed By: #### U DINA, LIPID, TSH, BNP, CMP, T7 #### [facility] [address] [place] [address] Dr. Suzie Brooks pH (U) 5.0 [pH] Normal 5-9 [facility] Comment on above: Performed By: #### U DINA, LIPID, TSH, BNP, CMP, T7 #### [facility] [address] [place] [address] Dr. Suzie Brooks Protein (U) [Mass/Vol] 100 mg/dL Abnormal NEGATIVE/ TRACE [facility] Comment on above: Performed By: #### U DINA, LIPID, TSH, BNP, CMP, T7 #### [facility] [address] [place] [address] Dr. Suzie Brooks SPEC GRAVITY 1.030 Abnormal 1.005-<=1.02 5 [facility] Comment on above: Performed By: #### U DINA, LIPID, TSH, BNP, CMP, T7 #### [facility] [address] [place] [address] Dr. Suzie Brooks UR MICRO IND INDICATED Normal [facility] Comment on above: Performed By: #### U DINA, LIPID, TSH, BNP, CMP, T7 #### [facility] [address] [place] [address] Dr. Suzie Brooks Urobilinogen Qn (U) 0.2 {Behzad'U}/dL Normal 0.2 - 1. 0 [facility] Comment on above: Performed By: #### U DINA, LIPID, TSH, BNP, CMP, T7 #### [facility] [address] [place] [address] Dr. Suzie Brooks LACTATE/LACTIC ACIDon 2021 Lactate [Moles/Vol] 1.0 mmol/L Normal 0.7-2.0 [facility] Comment on above: Performed By: #### U DINA, LIPID, TSH, BNP, CMP, T7 #### [facility] [address] [place] [address] Dr. Suzie Brooks PROF 14(COMP METB)on 022 Albumin [Mass/Vol] 3.8 g/dL Normal 3.4-5.0 [facility] Comment on above: Performed By: #### U DINA, LIPID, TSH, BNP, CMP, T7 #### [facility] [address] [place] [address] Dr. Suzie Brooks Albumin/Globulin [Mass ratio] 1.0 {ratio} Normal [facility] Comment on above: Performed By: #### U DINA, LIPID, TSH, BNP, CMP, T7 #### [facility] [address] [place] [address] Dr. Suzie Brooks ALP [Catalytic activity/Vol] 66 U/L Normal 46-116 [facility] Comment on above: Performed By: #### U DINA, LIPID, TSH, BNP, CMP, T7 #### [facility] [address] [place] [address] Dr. Suzie Brooks ALT [Catalytic activity/Vol] 52 U/L Normal 16-63 [facility] Comment on above: Performed By: #### U DINA, LIPID, TSH, BNP, CMP, T7 #### [facility] [address] [address] [address] Suzie Brooks Anion gap [Moles/Vol] 14.7 mmol/L Normal [facility] Comment on above: Performed By: #### U DINA, LIPID, TSH, BNP, CMP, T7 #### [facility] [address] [place] [address] Dr. Suzie Brooks AST [Catalytic activity/Vol] 40 U/L Critically high 15-37 [facility] Comment on above: Performed By: #### U DINA, LIPID, TSH, BNP, CMP, T7 #### [facility] [address] [place] [address] Dr. Suzie Brooks Bilirubin [Mass/Vol] 0.6 mg/dL Normal 0.2-1.3 [facility] Comment on above: Performed By: #### U DINA, LIPID, TSH, BNP, CMP, T7 #### [facility] [address] [place] [address] Dr. Suzie Brooks Calcium [Mass/Vol] 8.2 mg/dL Critically low 8.5-10.1 Th e [facility] Comment on above: Performed By: #### U DINA, LIPID, TSH, BNP, CMP, T7 #### [facility] [address] [address] [address] Suzie Brooks Chloride [Moles/Vol] 102 mmol/L Normal 98-107 [facility] Comment on above: Performed By: #### U DINA, LIPID, TSH, BNP, CMP, T7 #### [facility] [address] [address] [address] Suzie Brooks CO2 [Moles/Vol] 27.4 mmol/L Normal 22.0-30.0 [facility] Comment on above: Performed By: #### U DINA, LIPID, TSH, BNP, CMP, T7 #### [facility] [address] [address] [address] Suzie Brooks Creatinine [Mass/Vol] 1.05 mg/dL Normal 0.66-1.25 [facility] Comment on above: Performed By: #### U DINA, LIPID, TSH, BNP, CMP, T7 #### [facility] [address] [address] [address] Suzie Brooks EGFR-AF DJIBOUTIAN >60 Normal >=60 [facility] Comment on above: Performed By: #### U DINA, LIPID, TSH, BNP, CMP, T7 #### [facility] [address] [address] [address] Suzie Brooks EGFR-NON AF DJIBOUTIAN >60 Normal >=60 [facility] Comment on above: Performed By: #### U DINA, LIPID, TSH, BNP, CMP, T7 #### [facility] [address] [address] [address] Suzie Brooks Globulin (S) [Mass/Vol] 3.7 g/dL Normal [facility] Comment on above: Performed By: #### U DINA, LIPID, TSH, BNP, CMP, T7 #### [facility] [address] [address] [address] Suzie Brooks Glucose [Mass/Vol] 124 mg/dL Critically high 74-[address] [facility] Comment on above: Performed By: #### U DINA, LIPID, TSH, BNP, CMP, T7 #### [facility] [address] [address] [address] Suzie Brooks Potassium [Moles/Vol] 4.1 mmol/L Normal 3.4-5.0 [facility] Comment on above: Performed By: #### U DINA, LIPID, TSH, BNP, CMP, T7 #### [facility] [address] [address] [address] Suzie Brooks Protein [Mass/Vol] 7.5 g/dL Normal 6.1-8.2 [facility] Comment on above: Performed By: #### U DINA, LIPID, TSH, BNP, CMP, T7 #### [facility] [address] [address] [address] Suzie Brooks Sodium [Moles/Vol] 140 mmol/L Normal 137-145 [facility] Comment on above: Performed By: #### U DINA, LIPID, TSH, BNP, CMP, T7 #### [facility] [facility] [address] [address] [address] Suzie Brooks Urea nitrogen [Mass/Vol] 16.0 mg/dL Normal 7.0-18.0 [facility] Comment on above: Performed By: #### U DINA, LIPID, TSH, BNP, CMP, T7 #### [facility] [address] [address] [address] Suzie Brooks Urea nitrogen/Creatinine [Mass ratio] 15.2 mg/mg Normal [facility] Comment on above: Performed By: #### U DINA, LIPID, TSH, BNP, CMP, T7 #### [facility] [address] [address] [address] Suzie Brooks URINE MICROSCOPIC ONLYon BACTERIA SMALL Abnormal NONE SEEN [facility] Comment on above: Performed By: #### U DINA, LIPID, TSH, BNP, CMP, T7 #### [facility] [address] [address] [address] Suzie Brooks Bacteria identified Cx Nom (U) INDICATED Normal [facility] Comment on above: Performed By: #### U DINA, LIPID, TSH, BNP, CMP, T7 #### [facility] [address] [address] [address] Suzie Brooks CAST NONE SEEN Normal NONE SEEN [facility] Comment on above: Performed By: #### U DINA, LIPID, TSH, BNP, CMP, T7 #### [facility] [address] [address] [address] Suzie Brooks Crystals LM Nom (Urine sed) NONE SEEN Normal NONE SEEN [facility] Comment on above: Performed By: #### U DINA, LIPID, TSH, BNP, CMP, T7 #### [facility] [address] [address] [address] Suzie Brooks Epithelial cells LM Ql (Urine sed) RARE Normal NONE SEEN /RARE [facility] Comment on above: Performed By: #### U DINA, LIPID, TSH, BNP, CMP, T7 #### [facility] [address] [address] [address] Suzie Brooks MUCOUS NONE SEEN Normal NONE SEEN [facility] Comment on above: Performed By: #### U DINA, LIPID, TSH, BNP, CMP, T7 #### [facility] [address] [address] [address] Suzie Brooks RBC 50-75 Abnormal 0-2 [facility] Comment on above: Performed By: #### U DINA, LIPID, TSH, BNP, CMP, T7 #### [facility] [address] [address] [address] Suzie Brooks WBC 20-50 Abnormal NONE SEEN The [facility] Comment on above: Performed By: #### U DINA, LIPID, TSH, BNP, CMP, T7 #### [facility] [address] [address] [address] Suzie Brooks XR KUB 1 VIEWon [...] Date: 2021-11-06 21:58 Normal [facility] XR KUB 1 VIEW EXAMINATION: XR KUB [...] Date: 2021-11-06 08:06 Normal [facility] CBC AUTO DIFFon 11-05-2021 BASO # 0.1 103/ul Normal 0.0-0.1 [facility] Comment on above: Performed By: #### U DINA, LIPID, TSH, BNP, CMP, T7 #### [facility] [address] [address] [address] Suzie Brooks Basophils/100 WBC (Bld) 0.6 % Normal 0.2-2.0 [facility] Comment on above: Performed By: #### U DINA, LIPID, TSH, BNP, CMP, T7 #### [facility] [address] [address] [address] Suzie Brooks EO # 0.3 103/ul Normal 0.0-0.7 [facility] Comment on above: Performed By: #### U DINA, LIPID, TSH, BNP, CMP, T7 #### [facility] [address] [address] [address] Suzie Brooks Eosinophils/100 WBC (Bld) 2.2 % Normal 0.9-7.0 [facility] Comment on above: Performed By: #### U DINA, LIPID, TSH, BNP, CMP, T7 #### [facility] [address] [address] [address] Suzie Brooks Erythrocyte distribution width (RBC) [Ratio] 13.7 % Normal 11.0-15.0 [facility] Comment on above: Performed By: #### U DINA, LIPID, TSH, BNP, CMP, T7 #### [facility] [address] [place] [address] Dr. Suzie Brooks Hematocrit (Bld) [Volume fraction] 49.0 % Normal 42.0-54.0 [facility] Comment on above: Performed By: #### U DINA, LIPID, TSH, BNP, CMP, T7 #### [facility] [address] [place] [address] Dr. Suzie Brooks Hemoglobin (Bld) [Mass/Vol] 15.9 g/dL Normal 14.0-18.0 [facility] Comment on above: Performed By: #### U DINA, LIPID, TSH, BNP, CMP, T7 #### [facility] [address] [place] [address] Dr. Suzie Brooks IG # 0.07 10e3/ul Critically high 0.00-0.03 [facility] Comment on above: Performed By: #### U DINA, LIPID, TSH, BNP, CMP, T7 #### [facility] [address] [place] [address] Dr. Suzie Brooks IG % 0.5 % Normal 0.0-0.5 [facility] Comment on above: Performed By: #### U DINA, LIPID, TSH, BNP, CMP, T7 #### [facility] [address] [place] [address] Dr. Suzie Brooks LYMPH # 3.1 103/ul Normal 1.2-3.8 [facility] Comment on above: Performed By: #### U DINA, LIPID, TSH, BNP, CMP, T7 #### [facility] [address] [place] [address] Dr. Suzie Brooks Lymphocytes/100 WBC (Bld) 23.8 % Normal 20.5-60.0 [facility] Comment on above: Performed By: #### U DINA, LIPID, TSH, BNP, CMP, T7 #### [facility] [address] [place] [address] Dr. Suzie Brooks MANUAL DIFF REQ NO Normal [facility] Comment on above: Performed By: #### U DINA, LIPID, TSH, BNP, CMP, T7 #### [facility] [address] [place] [address] Dr. Suzie Brooks MCH (RBC) [Entitic mass] 28.8 pg Normal 25.9-34.0 [facility] Comment on above: Performed By: #### U DINA, LIPID, TSH, BNP, CMP, T7 #### [facility] [address] [place] [address] Dr. Suzie Brooks MCHC (RBC) [Mass/Vol] 32.4 g/dL Normal 29.9-35.2 [facility] Comment on above: Performed By: #### U DINA, LIPID, TSH, BNP, CMP, T7 #### [facility] [address] [place] [address] Dr. Suzie Brooks MCV (RBC) [Entitic vol] 88.8 fL Normal 80.0-94.0 [facility] Comment on above: Performed By: #### U DINA, LIPID, TSH, BNP, CMP, T7 #### [facility] [address] [place] [address] Dr. Suzie Brooks MONO # 0.9 103/ul Critically high 0.3-0.8 [facility] Comment on above: Performed By: #### U DINA, LIPID, TSH, BNP, CMP, T7 #### [facility] [address] [place] [address] Dr. Suzie Brooks Monocytes/100 WBC (Bld) 6.8 % Normal 1.7-12.0 [facility] Comment on above: Performed By: #### U DINA, LIPID, TSH, BNP, CMP, T7 #### [facility] [address] [place] [address] Dr. Suzie Brooks NEUT # 8.7 103/ul Critically high 1.4-6.5 [facility] Comment on above: Performed By: #### U DINA, LIPID, TSH, BNP, CMP, T7 #### [facility] [address] [address] [address] Suzie Brooks Neutrophils/100 WBC (Bld) 66.1 % Normal 43.0-75.0 [facility] Comment on above: Performed By: #### U DINA, LIPID, TSH, BNP, CMP, T7 #### [facility] [address] [place], [place] [address] Dr. Suzie Brooks Platelet mean volume (Bld) [Entitic vol] 9.4 fL Critically low 9.5-13.5 [facility] Comment on above: Performed By: #### U DINA, LIPID, TSH, BNP, CMP, T7 #### [facility] [address] [address] [address] Suzie Brooks PLT 278 103/ul Normal 150-450 [facility] Comment on above: Performed By: #### U DINA, LIPID, TSH, BNP, CMP, T7 #### [facility] [address] [address] [address] Suzie Brooks RBC 5.52 106/ul Normal 4.70-6.10 [facility] Comment on above: Performed By: #### U DINA, LIPID, TSH, BNP, CMP, T7 #### [facility] [address] [id number] [address] Suzie Brooks WBC 13.1 103/ul Critically high 4.0-11.0 [facility] Comment on above: Performed By: #### U DINA, LIPID, TSH, BNP, CMP, T7 #### [facility] [address] [address] [address] ABD/PELVIS WO CONon [...] Date: 2021-11-05 11:46 Normal [facility] CULTURE URINEon 11-05-2021 CULTURE URINE Culture Observations : No growth Normal [facility] Comment on above: Performed By: #### M AG24 #### [facility] [address] [place] [address] Dr. Suzie Brooks ER URINE PROFILEon 2 Bilirubin Ql (U) Negative Normal NEGATIVE [facility] Comment on above: Performed By: #### C VDTBH #### [facility] [address] [place] [address] Dr. Suzie Brooks Clarity (U) CLEAR Normal CLEAR [facility] Comment on above: Performed By: #### C VDTBH #### [facility] [address] [place] [address] Dr. Suzie Brooks Color (U) DK. YELLOW Normal YELLOW [facility] Comment on above: Performed By: #### C VDTBH #### [facility] [address] [place] [address] Dr. Suzie Brooks ERUAHD A micrscopic examina tion will be performed if indicated. Normal [facility] Comment on above: Performed By: #### C VDTBH #### [facility] [address] [place] [address] Dr. Suzie Brooks Glucose Ql (U) Negative Normal NEGATIVE [facility] Comment on above: Performed By: #### C VDTBH #### [facility] [address] [place] [address] Dr. Suzie Brooks Hemoglobin Ql (U) LARGE Abnormal NEGATIVE [facility] Comment on above: Performed By: #### C VDTBH #### [facility] [address] [place] [address] Dr. Suzie Brooks Ketones Ql (U) Negative Normal NEGATIVE [facility] Comment on above: Performed By: #### C VDTBH #### [facility] [address] [place] [address] Dr. Suzie Brooks LEUKOCYTES Negative Normal NEGATIVE [facility] Comment on above: Performed By: #### C VDTBH #### [facility] [address] [place] [address] Dr. Suzie Brooks Nitrite Ql (U) Negative Normal NEGATIVE [facility] Comment on above: Performed By: #### C VDTBH #### [facility] [address] [place] [address] Dr. Suzie Brooks pH (U) 5.0 [pH] Normal 5-9 [facility] Comment on above: Performed By: #### C VDTBH #### [facility] [address] [place] [address] Dr. Suzie Brooks Protein (U) [Mass/Vol] 100 mg/dL Abnormal NEGATIVE/ TRACE [facility] Comment on above: Performed By: #### C VDTBH #### [facility] [address] [place] [address] Dr. Suzie Brooks SPEC GRAVITY >=1.030 Abnormal 1.005-<=1.02 5 [facility] Comment on above: Performed By: #### C VDTBH #### [facility] [address] [place] [address] Dr. Suzie Brooks UR MICRO IND INDICATED Normal [facility] Comment on above: Performed By: #### C VDTBH #### [facility] [address] [place] [address] Dr. Suzie Brooks Urobilinogen Qn (U) 0.2 {Behzad'U}/dL Normal 0.2 - 1. 0 [facility] Comment on above: Performed By: #### C VDTBH #### [facility] [address] [place] [address] Dr. Suzie Brooks PROF 14(COMP METB)on 022 Albumin [Mass/Vol] 3.9 g/dL Normal 3.4-5.0 [facility] Comment on above: Performed By: #### U DINA, LIPID, TSH, BNP, CMP, T7 #### [facility] [address] [place] [address] Dr. Suzie Brooks Albumin/Globulin [Mass ratio] 1.1 {ratio} Normal [facility] Comment on above: Performed By: #### U DINA, LIPID, TSH, BNP, CMP, T7 #### [facility] [address] [place] [address] Dr. Suzie Brooks ALP [Catalytic activity/Vol] 64 U/L Normal 46-116 [facility] Comment on above: Performed By: #### U DINA, LIPID, TSH, BNP, CMP, T7 #### [facility] [address] [place] [address] Dr. Suzie Brooks ALT [Catalytic activity/Vol] 57 U/L Normal 16-63 [facility] Comment on above: Performed By: #### U DINA, LIPID, TSH, BNP, CMP, T7 #### [facility] [address] [place] [address] Dr. Suzie Brooks Anion gap [Moles/Vol] 14.4 mmol/L Normal [facility] Comment on above: Performed By: #### U DINA, LIPID, TSH, BNP, CMP, T7 #### [facility] [address] [place] [address] Dr. Suzie Brooks AST [Catalytic activity/Vol] 51 U/L Critically high 15-37 [facility] Comment on above: Performed By: #### U DINA, LIPID, TSH, BNP, CMP, T7 #### [facility] [address] [address] [address] Suzie Brooks Bilirubin [Mass/Vol] 0.8 mg/dL Normal 0.2-1.3 [facility] Comment on above: Performed By: #### U DINA, LIPID, TSH, BNP, CMP, T7 #### [facility] [address] [address] [address] Suzie Brooks Calcium [Mass/Vol] 8.5 mg/dL Normal 8.5-10.1 [facility] Comment on above: Performed By: #### U DINA, LIPID, TSH, BNP, CMP, T7 #### [facility] [address] [place] [address] Dr. Suzie Brooks Chloride [Moles/Vol] 103 mmol/L Normal 98-107 [facility] Comment on above: Performed By: #### U DINA, LIPID, TSH, BNP, CMP, T7 #### [facility] [address] [address] [address] Suzie Brooks CO2 [Moles/Vol] 26.8 mmol/L Normal 22.0-30.0 [facility] Comment on above: Performed By: #### U DINA, LIPID, TSH, BNP, CMP, T7 #### [facility] [address] [place] [address] Dr. Suzie Brooks Creatinine [Mass/Vol] 0.98 mg/dL Normal 0.66-1.25 [facility] Comment on above: Performed By: #### U DINA, LIPID, TSH, BNP, CMP, T7 #### [facility] [address] [place] [address] Dr. Suzie Brooks EGFR-AF DJIBOUTIAN >60 Normal >=60 [facility] Comment on above: Performed By: #### U DINA, LIPID, TSH, BNP, CMP, T7 #### [facility] [address] [place] [address] Dr. Suzie Brooks EGFR-NON AF DJIBOUTIAN >60 Normal >=60 [facility] Comment on above: Performed By: #### U DINA, LIPID, TSH, BNP, CMP, T7 #### [facility] [address] [place] [address] Dr. Suzie Brooks Globulin (S) [Mass/Vol] 3.7 g/dL Normal [facility] Comment on above: Performed By: #### U DINA, LIPID, TSH, BNP, CMP, T7 #### [facility] [address] [place] [address] Dr. Suzie Brooks Glucose [Mass/Vol] 118 mg/dL Critically high 74-[address] [facility] Comment on above: Performed By: #### U DINA, LIPID, TSH, BNP, CMP, T7 #### [facility] [address] [place] [address] Dr. Suzie Brooks Potassium [Moles/Vol] 4.2 mmol/L Normal 3.4-5.0 [facility] Comment on above: Performed By: #### U DINA, LIPID, TSH, BNP, CMP, T7 #### [facility] [address] [place] [address] Dr. Suzie Brooks Protein [Mass/Vol] 7.6 g/dL Normal 6.1-8.2 [facility] Comment on above: Performed By: #### U DINA, LIPID, TSH, BNP, CMP, T7 #### [facility] [address] [place] [address] Dr. Suzie Brooks Sodium [Moles/Vol] 140 mmol/L Normal 137-145 [facility] Comment on above: Performed By: #### U DINA, LIPID, TSH, BNP, CMP, T7 #### [facility] [address] [place] [address] Dr. Suzie Brooks Urea nitrogen [Mass/Vol] 14.0 mg/dL Normal 7.0-18.0 [facility] Comment on above: Performed By: #### U DINA, LIPID, TSH, BNP, CMP, T7 #### [facility] [address] [place] [address] Dr. Suzie Brooks Urea nitrogen/Creatinine [Mass ratio] 14.3 mg/mg Normal [facility] Comment on above: Performed By: #### U DINA, LIPID, TSH, BNP, CMP, T7 #### [facility] [address] [place] [address] Dr. Suzie Brooks URINE MICROSCOPIC ONLYon BACTERIA MODERATE Abnormal NONE SEEN [facility] Comment on above: Performed By: #### C VDTBH #### [facility] [address] [place] [address] Dr. Suzie Brooks Bacteria identified Cx Nom (U) INDICATED Normal [facility] Comment on above: Performed By: #### C VDTBH #### [facility] [address] [place] [address] Dr. Suzie Brooks CAST SEEN Abnormal NONE SEEN [facility] Comment on above: Performed By: #### C VDTBH #### [facility] [address] [place] [address] Dr. Suzie Brooks Crystals LM Nom (Urine sed) NONE SEEN Normal NONE SEEN [facility] Comment on above: Performed By: #### C VDTBH #### [facility] [address] [place] [address] Dr. Suzie Brooks Epithelial cells LM Ql (Urine sed) RARE Normal NONE SEEN /RARE [facility] Comment on above: Performed By: #### C VDTBH #### [facility] [address] [place] [address] Dr. Suzie Brooks HYALINE CAST RARE Normal [facility] Comment on above: Performed By: #### C VDTBH #### [facility] [address] [place] [address] Dr. Suzie Brooks MUCOUS NONE SEEN Normal NONE SEEN [facility] Comment on above: Performed By: #### C VDTBH #### [facility] [address] [place] [address] Dr. Suzie Brooks RBC (U) [#/Vol] /uL Abnormal 0-2 [facility] Comment on above: Performed By: #### C VDTBH #### [facility] [address] [place] [address] Dr. Suzie Brooks WBC NONE SEEN Normal NONE SEEN [facility] Comment on above: Performed By: #### C VDTBH #### [facility] [address] [place], [place] [id number] Dr. Suzie Brooks XR KUB 1 VIEWon [...] Date: 2021-11-01 12:07 Normal [facility] CBC AUTO DIFFon 10-26-2021 BASO # 0.1 103/ul Normal 0.0-0.1 [facility] Comment on above: Performed By: #### U DINA, LIPID, TSH, BNP, CMP, T7 #### [facility] [address] [place] [address] Dr. Suzie Brooks Basophils/100 WBC (Bld) 0.7 % Normal 0.2-2.0 [facility] Comment on above: Performed By: #### U DINA, LIPID, TSH, BNP, CMP, T7 #### [facility] [address] [place] [address] Dr. Suzie Brooks EO # 0.2 103/ul Normal 0.0-0.7 [facility] Comment on above: Performed By: #### U DINA, LIPID, TSH, BNP, CMP, T7 #### [facility] [address] [place] [address] Dr. Suzie Brooks Eosinophils/100 WBC (Bld) 1.5 % Normal 0.9-7.0 [facility] Comment on above: Performed By: #### U DINA, LIPID, TSH, BNP, CMP, T7 #### [facility] [address] [place] [address] Dr. Suzie Brooks Erythrocyte distribution width (RBC) [Ratio] 13.9 % Normal 11.0-15.0 [facility] Comment on above: Performed By: #### U DINA, LIPID, TSH, BNP, CMP, T7 #### [facility] [address] [place] [address] Dr. Suzie Brooks Hematocrit (Bld) [Volume fraction] 47.5 % Normal 42.0-54.0 [facility] Comment on above: Performed By: #### U DINA, LIPID, TSH, BNP, CMP, T7 #### [facility] [address] [address] [address] Suzie Brooks Hemoglobin (Bld) [Mass/Vol] 15.5 g/dL Normal 14.0-18.0 [facility] Comment on above: Performed By: #### U DINA, LIPID, TSH, BNP, CMP, T7 #### [facility] [address] [place] [address] Dr. Suzie Brooks IG # 0.06 10e3/ul Critically high 0.00-0.03 [facility] Comment on above: Performed By: #### U DINA, LIPID, TSH, BNP, CMP, T7 #### [facility] [address] [place] [address] Dr. Suzie Brooks IG % 0.5 % Normal 0.0-0.5 [facility] Comment on above: Performed By: #### U DINA, LIPID, TSH, BNP, CMP, T7 #### [facility] [address] [place] [address] Dr. Suzie Brooks LYMPH # 2.6 103/ul Normal 1.2-3.8 [facility] Comment on above: Performed By: #### U DINA, LIPID, TSH, BNP, CMP, T7 #### [facility] [address] [place] [address] Dr. Suzie Brooks Lymphocytes/100 WBC (Bld) 23.1 % Normal 20.5-60.0 [facility] Comment on above: Performed By: #### U DINA, LIPID, TSH, BNP, CMP, T7 #### [facility] [address] [place] [address] Dr. Suzie Brooks MANUAL DIFF REQ NO Normal [facility] Comment on above: Performed By: #### U DINA, LIPID, TSH, BNP, CMP, T7 #### [facility] [address] [address] [address] Suzie Brooks MCH (RBC) [Entitic mass] 28.9 pg Normal 25.9-34.0 [facility] Comment on above: Performed By: #### U DINA, LIPID, TSH, BNP, CMP, T7 #### [facility] [address] [place] [address] Dr. Suzie Brooks MCHC (RBC) [Mass/Vol] 32.6 g/dL Normal 29.9-35.2 [facility] Comment on above: Performed By: #### U DINA, LIPID, TSH, BNP, CMP, T7 #### [facility] [address] [place] [address] Dr. Suzie Brooks MCV (RBC) [Entitic vol] 88.5 fL Normal 80.0-94.0 [facility] Comment on above: Performed By: #### U DINA, LIPID, TSH, BNP, CMP, T7 #### [facility] [address] [place] [address] Dr. Suzie Brooks MONO # 0.9 103/ul Critically high 0.3-0.8 [facility] Comment on above: Performed By: #### U DINA, LIPID, TSH, BNP, CMP, T7 #### [facility] [address] [place] [address] Dr. Suzie Brooks Monocytes/100 WBC (Bld) 7.9 % Normal 1.7-12.0 [facility] Comment on above: Performed By: #### U DINA, LIPID, TSH, BNP, CMP, T7 #### [facility] [address] [place] [address] Dr. Suzie Brooks NEUT # 7.4 103/ul Critically high 1.4-6.5 [facility] Comment on above: Performed By: #### U DINA, LIPID, TSH, BNP, CMP, T7 #### [facility] [address] [place] [address] Dr. Suzie Brooks Neutrophils/100 WBC (Bld) 66.3 % Normal 43.0-75.0 [facility] Comment on above: Performed By: #### U DINA, LIPID, TSH, BNP, CMP, T7 #### [facility] [address] [address] [address] Suzie Brooks Platelet mean volume (Bld) [Entitic vol] 9.6 fL Normal 9.5-13.5 [facility] Comment on above: Performed By: #### U DINA, LIPID, TSH, BNP, CMP, T7 #### [facility] [address] [address] [address] Suzie Brooks PLT 252 103/ul Normal 150-450 [facility] Comment on above: Performed By: #### U DINA, LIPID, TSH, BNP, CMP, T7 #### [facility] [address] [place] [address] Dr. Suzie Brooks RBC 5.37 106/ul Normal 4.70-6.10 [facility] Comment on above: Performed By: #### U DINA, LIPID, TSH, BNP, CMP, T7 #### [facility] [address] [address] [address] Suzie Brooks WBC 11.2 103/ul Critically high 4.0-11.0 [facility] Comment on above: Performed By: #### U DINA, LIPID, TSH, BNP, CMP, T7 #### [facility] [address] [place] [address] Dr. Suzie Brooks Covid-19 PCR (CVDTB)on 10-09 SARS-CoV-2 (COVID-19) RNA SUKHJINDER+probe Ql (Unsp spec) Not detected Normal NOT DETECTED [facility] Comment on above: Result Comment: This test is not yet approved or cleared by the [place] FDA. When there are no FDA-approved or cleared tests available, and other criteria are met, FDA can make tests available under an emergency access mechanism called an Emergency Use Authorization (EUA). The EUA for this test is supported by the [place] of Health and Human Service's (HHS's) declaration [...] TSH, BNP, CMP, T7 #### [facility] [address] [place] [address] Dr. Suize Brooks PROF CHEM 8 (BAS METB)on Anion gap [Moles/Vol] 7.7 mmol/L Normal [facility] Comment on above: Performed By: #### C VDTBH #### [facility] [address] [place] [address] Dr. Suzie Brooks Calcium [Mass/Vol] 8.6 mg/dL Normal 8.5-10.1 [facility] Comment on above: Performed By: #### C VDTBH #### [facility] [address] [place] [address] Dr. Suzie Brooks Chloride [Moles/Vol] 104 mmol/L Normal 98-107 [facility] Comment on above: Performed By: #### C VDTBH #### [facility] [address] [place] [address] Dr. Suzie Brooks CO2 [Moles/Vol] 31.8 mmol/L Critically high 22.0-30.0 [facility] Comment on above: Performed By: #### C VDTBH #### [facility] [address] [place] [address] Dr. Suzie Brooks Creatinine [Mass/Vol] 0.99 mg/dL Normal 0.66-1.25 [facility] Comment on above: Performed By: #### C VDTBH #### [facility] [address] [place] [address] Dr. Suzie Brooks EGFR-AF DJIBOUTIAN >60 Normal >=60 [facility] Comment on above: Performed By: #### C VDTBH #### [facility] [address] [place] [address] Dr. Suzie Brooks EGFR-NON AF DJIBOUTIAN >60 Normal >=60 [facility] Comment on above: Performed By: #### C VDTBH #### [facility] [address] [address] [address] Suzie Brooks Glucose [Mass/Vol] 94 mg/dL Normal 74-106 [facility] Comment on above: Performed By: #### C VDTBH #### [facility] [address] [place] [address] Dr. Suzie Brooks Potassium [Moles/Vol] 4.5 mmol/L Normal 3.4-5.0 [facility] Comment on above: Performed By: #### C VDTBH #### [facility] [address] [place] [address] Dr. Suzie Brooks Sodium [Moles/Vol] 139 mmol/L Normal 137-145 [facility] Comment on above: Performed By: #### C VDTBH #### [facility] [address] [place] [address] Dr. Suzie Brooks Urea nitrogen [Mass/Vol] 12.0 mg/dL Normal 7.0-18.0 [facility] Comment on above: Performed By: #### C VDTBH #### [facility] [address] [place] [address] Dr. Suzie Brooks Urea nitrogen/Creatinine [Mass ratio] 12.1 mg/mg Normal [facility] Comment on above: Performed By: #### C VDTBH #### [facility] [address] [place] [address] Dr. Suzie Brooks PROTIMEon 10-26-2021 INR Coag (PPP) [Relative time] 0.99 {INR} Normal [facility] Comment on above: Performed By: #### C VDTBH #### [facility] [address] [place] [address] Dr. Suzie Brooks INR GUIDELINES SEE BELOW Normal [facility] Comment on above: Result Comment: TOMMY RED INR: 2.0 - 3.0 CONDITIONS NOT LISTED BELOW 2.5 - 3.5 FOR PROSTHETIC HEART VALVE REPLACEMENT 2.5 - 3.5 RECURRENT THROMBOSIS Performed By: #### C VDTBH #### [facility] [address] [address] [address] Suzie Brooks PT Coag (PPP) [Time] 10.7 s Normal 9.0-11.6 [facility] Comment on above: Performed By: #### C VDTBH #### [facility] [address] [place], [place] [address] Dr. Suzie Brooks PTTon 10-26-2021 aPTT Coag (Bld) [Time] 26.4 s Normal 22.3-36.2 [facility] Comment on above: Performed By: #### C VDTBH #### [facility] [address] [address] [address] Suzie Brooks XR KUB 1 VIEWon [...] by: RAFAEL GRAVES Date: 2021-10-17 13:26 Normal [facility] Vital Signs Date Time Vital Sign Value Performing Clinician Giselei ceasar 04-11-2023 11:55-0400 Blood Pressure Location Miki ZENG [facility] 04-11-2023 11:55-0400 Diastolic blood pressure 76 mm[Hg] Miki ZENG [facility] 04-11-2023 11:55-0400 Heart rate 80 /min Miki ZNEG [facility] 04-11-2023 11:55-0400 Respiratory rate 16 /min Miki ZENG [facility] 04-11-2023 11:55-0400 Systolic blood pressure 134 mm[Hg] Miki ZENG [facility] 02-25-2022 14:20-0400 Blood Pressure Location Miki ZENG [facility] 02-25-2022 14:20-0400 Diastolic blood pressure 100 mm[Hg] Miki ZENG [facility] 02-25-2022 14:20-0400 Heart rate 86 /min Mikikimberly ZENG [facility] 02-25-2022 14:20-0400 Respiratory rate 16 /min Mikikimberly ZENG [facility] 02-25-2022 14:20-0400 Systolic blood pressure 155 mm[Hg] Miki ZENG [facility] Encounters Encounter Date Encounter Type Care Provider Facility Start: 04-16-2024 ambulatory Miki Muhammadi ty:ROSA [place] Start: 04-01-2024 End: 04-01-2024 ambulatory TRACEY ABDULLAHI Not Available Start: 04-11-2023 End: 04-11-2023 Patient encounter procedure Miki ZENG [facility] Start: 08-14-[address] MARIELLE LERMA Facility :[facility] Start: 08-13-[address] MARIELLE LERMA Facility :[facility] Start: 07-26-2022 End: 07-27-[address] MARIELLE LERMA Facility:[facility] Start: 07-18-2022 End: 07-19-[address] MIKI ZENG Facility:[facility] Start: 05-15-2022 End: 05-16-[address] MARIELLE LERMA Facility:[facility] Start: 02-25-2022 End: 02-25-2022 Patient encounter procedure Miki ZENG [facility] Start: 02-18-2022 End: 02-18-2022 ambulatory [...] encounter procedure MD Marielle Lerma Work Phone: [facility] Start: 11-12-2021 End: 11-13-[address] MIKI ZENG Facility:[facility] Start: 11-06-2021 End: 11-07-[address] MARIELLE LERMA Facility:[facility] Start: 11-05-2021 End: 11-05-[address] MARIELLE LERMA Facility:[facility] Start: 11-01-2021 End: 11-01-[address] MIKI ZENG Facility:[facility] Start: 10-31-2021 Encounter for preprocedural cardiovascular examination DR MIKI ZENG [facility] Start: 10-30-[address] MIKI ZENG [facility] ity:[facility] Start: 10-26-2021 End: 10-27-[address] MIKI ZENG Facility:[facility] Start: 10-26-2021 End: 10-27-2021 Encounter for preprocedural cardiovascular examination DR MIKI ZENG Facility:[facility] Start: 10-17-2021 End: 10-18-[address] MIKI ZENG Facility:[facility] Procedures Date Procedure Procedure Detail Performing Clinician Start: 05-15-[address] JHONATAN ZENG Comment on above: Performed By: #### U DINA, LIPID, TSH, BNP, CMP, T7 #### [facility] [address] [address] [address] Suzie Brooks Start: 11-21-2021 Cystoscopy Miki VINCENT Start: 11-06-2021 Cystoscopy Miki ROJAS TERS Start: 11-08-2013 Colonoscopy Miki VINCENT Comment on above: normal Arthroplasty of knee Miki ZENG Comment on above: right Arthroscopic knee operation Miki ZENG Arthroscopic knee operation Mikikimberly ZENG Basal cell carcinoma (morphologic abnormality) Miki ZENG Lithotripsy Mikikimberly ZENG Reconstruction of nose Dean aleman ZENG Repair of musculoten dinous cuff of shoulder Mikikimberly ZENG Repair of umbilical hernia P vic THOR Wide excision Mikikimberly ZENG Comment on above: basal cell CA- LLE Immunizations Immunization Date Immunization Notes Care Provider Fa cility 05-31-2022 SARS-CoV-2 (COVID-19 ) [id number] Mikikimberly ZENG [facility] Comment on above: Result Comment: 2022: [id number] 12-22-2021 SARS-CoV-2 (COVID-19 ) mRNA-1273 vaccine Miki ZENG [facility] 06-05-2021 SARS-CoV-2 (COVID-19 ) mRNA-1273 vaccine Cream [employer] [facility] 05-29-2021 influenza virus vaccine, unspecified formulation [employer] [facility] 05-15-2021 influenza virus vaccine, unspecified formulation [employer] [facility] 11-09-2020 SARS-CoV-2 (COVID-19 ) mRNA-1273 vaccine Cream [employer] [facility] 11-01-2020 SARS-CoV-2 (COVID-19 ) mRNA-1273 vaccine Cream Style [facility] 10-09-2020 SARS-CoV-2 (COVID-19 ) mRNA-1273 vaccine Cream [employer] [facility] 10-05-2020 SARS-CoV-2 (COVID-19 ) mRNA-1273 vaccine [employer] [facility] 05-17-2020 influenza virus vaccine, unspecified formulation [employer] [facility] 06-24-2019 tetanus toxoid, redu roberto carlos diphtheria toxoid, and acellular pertussis vaccine, adsorbed [employer] [facility] 05-25-2019 influenza virus vaccine, unspecified formulation [employer] [facility] 05-22-2017 influenza virus vaccine, unspecified formulation [employer] [facility] 05-22-2017 pneumococcal conjuga te vaccine, 13 valent Miki ZENG [facility] 05-30-2016 influenza, unspecifi ed formulation Miki ZENG [facility] 11-01-2013 zoster vaccine, live Mikikimberly ZENG [facility] 12-18-2005 hepatitis A vaccine, adult dosage Miki ZENG [facility] 10-18-2005 hepatitis B vaccine, pediatric or pediatric/adolescent dosage Mikikimberly ZENG [facility] 10-18-2005 tetanus and diphther ia toxoids, adsorbed, preservative free, for adult use (2 Lf of tetanus toxoid and 2 Lf of diphtheria toxoid) Mikikimberly ZENG [facility] 07-26-2005 hepatitis B vaccine, pediatric or pediatric/adolescent dosage Mikikimberly ZENG [facility] 06-20-2005 hepatitis A vaccine, adult dosage Mikikimberly ZENG [facility] 06-20-2005 hepatitis B vaccine, pediatric or pediatric/adolescent dosage Mikikimberly ZENG [facility] Payers Date Payer Category Payer Medicare [id number] Private Health Insurance [id number] 1950 Unknown [id number] 2.16.84 0.1.564692.3.579.2.593 1950 Unknown [id number] 2.16.84 0.1.992183.3.579.2.593 1950 Unknown [id number] 2.16.84 0.1.339968.3.579.2.593 1952 Unknown [id number] 2.16.84 0.1.458121.3.579.2.593 1952 Unknown [id number] 2.16.84 0.1.849791.3.579.2.593 1952 Unknown [id number] 2.16.84 0.1.258777.3.579.2.593 1952 Unknown [id number] 2.16.84 0.1.229468.3.579.2.593 1952 Unknown [id number] 2.16.84 0.1.173020.3.579.2.593 1952 Unknown [id number] 2.16.84 0.1.229994.3.579.2.593 1952 Unknown [id number] 2.16.84 0.1.291056.3.579.2.593 1952 Unknown [id number] 2.16.84 0.1.598836.3.579.2.593 1952 Unknown [id number] 2.16.84 0.1.317758.3.579.2.593 1952 Unknown [id number] 2.16.84 0.1.060796.3.579.2.593 1952 Unknown [id number] 2.16.84 0.1.430321.3.579.2.593 1952 Unknown [id number] 2.16.84 0.1.129153.3.579.2.593 1952 Unknown [id number] 2.16.84 0.1.944174.3.579.2.593 1952 Unknown [id number] 2.16.84 0.1.151734.3.579.2.593 1952 Unknown [id number] 2.16.84 0.1.590429.3.579.2.593 1950 Unknown [id number] 2.16.84 0.1.839370.3.579.2.1259 1950 Unknown [id number] 2.16.8 40.1.617311.3.579.2.727 Self-pay Self Pay [id number] Social History Date Type Detail Facility Start: 10-19-2019 End: 04-11-2023 Tobacco smoking status W[place]IS Ex-smoker (finding) [facility] Start: 1950 Sex Assigned At Male [facility] Tobacco smoking status Never [facility] Sex Assigned At Male [facility] Functional Status Date Assessment Result Facility 04-11-2023 Functional Status N/A [facility] 02-25-2022 Functional Status N/A [facility] Hospital Discharge instructions 04-11-2023 Note Date [...] include: ?8 oz (237 mL) of milk, udatbde-fgugblwlxwzc-zbqiw milk, and calcium-fortifiedfruit juice. Calcium-fortified means that [...] ?Spinach (cooked), rhubarb, beets, sweet potatoes, and [place] chard. ?Peanuts. ?Potato chips, senegalese fries, and baked potatoes with skin on. ?Nuts and nut products. ?Chocolate. If you regularly take a diuretic medicine, make sure to eat at least 1 or 2 servings of fruits or vegetables that are high in potassium each day. These include: ?Avocado. ?Banana. ?[place], prune, carrot, or tomato juice. ?Baked potato. [...] magnesium, fish oil, or vitamin B6. Take epdf-wpo-gqlgmsg and prescription medicines only as told by [...] Casseroles. Pizza. Lasagna. Frozen meals. Potato chips. Armenian fries. The items listed above may not [...] provider. Document Revised: 04/08/2022 Document Reviewed: 04/08/2022 [employer] Patient Education 2022 [employer]. Follow Up Care 08/19/2022 10:39:03 With:THOR BATISTA, Miki Cedeño, URL Address: [facility] [address] , [place] [address]- When:Within 1 Year(s) [facility] Discharge instructions 02-25-2022 [...] 07/28/2006 Document Revised: 04/16/2019 Document Reviewed: 06/27/2017 [employer] Patient Education 2020 [employer]. 02/25/2022 15:28:39 Kidney Stones, Gkyk-vb-Obga Kidney Stones Kidney stones are rock-like masses [...] Follow these instructions at home: Medicines Take wqwc-iwj-fncjdso and prescription medicines only as told by [...] 01/13/2009 Document Revised: 12/14/2019 Document Reviewed: 12/14/2019 [employer] Patient Education 2020 [employer]. Follow Up Care 11/21/2021 12:48:10 With:THOR BATISTA, Miki Cedeño, URL Address: [facility] [address], [place] [address]- [phone] When:Within 4 Month(s) Comments:4 mo fu with IVP [facility] Evaluation + Plan note 02-25-2022 Note Date & Type Note Facility 02-25-2022 Evaluation + Plan note Diagnostic Tests PendingPSA Total 02/25/22Creatinine 02/25/22 [facility] Evaluation + Plan note Note Date & Type Note Facility Evaluation + Plan note Future Appointments Appointment Date:04/16/2024 11:00:00 AM Scheduled Provider:Miki ZENG MD Location:[facility] Appointment Type:URO Office Visit [facility] Evaluation note Note Date & Type Note Facility Evaluation note No assessment information availa [facility] Work Phone: Hospital course Narrative Note Date & Type Note Facility Hospital course Narrative No data available for this section [facility] Progress note Note Date & Type Note Facility Progress note No data available for this section [facility] Chief Complaint and Reason for [...] Records FoundNo Status Records FoundNo Status Records FoundNo Status Records Found INFORMATION SOURCE (unrecogn ized section and content) DATE CREATED AUTHOR 11/22/2021 [facility] DATE CREATED AUTHOR AUTHOR'S ORGANIZ ATION 08/13/2022 [facility] DATE CREATED AUTHOR AUTHOR'S ORGANIZ ATION 04/03/2024 [facility] EPIC DATE CREATED AUTHOR AUTHOR'S ORGANIZ ATION 04/15/2024 [facility] FOR RECORDS PERTAINING TO PATIENTS WHO [...] BE BASED ON THE PRIMARY CLINICAL RECORDS. [employer] provides no warranty or guarantee of the accuracy or completeness of information in this document.
--- NOTE | 2024-04-15 15:10 | ECG_ITS ---
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
--- NOTE | 2024-04-15 15:11 | ED.DIZZY1 ---
HPI - Dizziness General Chief Complaint: Dizziness Stated Complaint: HIGH BLOOD PRESSURE/ DIZZINESS Time Seen by Provider: 04/15/24 15:05 Source: patient Mode of arrival: Wheelchair Limitations: no limitations History of Present Illness HPI Narrative: Patient is a 73-year-old male who presents to the emergency department for evaluation of multiple complaints. Patient states he has been on antibiotics for 15 days for cough and congestion. He presents to the ER today feeling fatigued, tired and sleeping more than normal. He states for the last several hours he has felt dizzy, he feels when his eyes are open that the room is spinning. He denies fevers, vomiting. He states his checked his blood pressure when the dizziness began and it was elevated at 210/[address] Lerma's office and was referred to the ER. His blood pressure is only minimally elevated on arrival to the ER. He has no complaints of chest pain. No headaches, visual changes, peripheral paresthesias. Related Data Home Medications ?Medication ?Instructions ?Recorded ?Confirmed allopurinol 300 mg tablet 300 mg PO DAILY 08/15/23 11/04/23 hydrochlorothiazide 12.5 mg capsule 12.5 mg PO QDAY 08/15/23 11/04/23 meloxicam 15 mg tablet 15 mg PO DAILY 08/15/23 11/04/23 potassium citrate 10 mEq (1,080 10 meq PO BID 08/15/23 11/04/23 mg) tablet,extended release primidone 50 mg tablet 50 mg PO BID 08/15/23 11/04/23 simvastatin 20 mg tablet 20 mg PO .QHS 08/15/23 11/04/23 solifenacin 10 mg tablet 10 mg PO DAILY 08/15/23 11/04/23 tamsulosin 0.4 mg capsule 0.4 mg PO BID 08/15/23 11/04/23 lisinopril 40 mg tablet 40 mg PO .QD 09/02/23 11/04/23 Previous Rx's ?Medication ?Instructions ?Recorded aspirin 81 mg capsule 81 mg PO DAILY #30 caps 08/15/23 fluticasone propionate 50 2 spray intranasal QD #16 grams 09/06/23 mcg/actuation nasal spray,suspension montelukast 10 mg tablet 10 mg PO QHS #30 tabs 09/06/23 fluconazole 200 mg tablet 200 mg PO DAILY #10 tabs 11/08/23 (Diflucan) fluticasone furoate 200 1 inh inhalation DAILY #1 ea 11/08/23 mcg-vilanterol 25 mcg/dose inhalation powder (Breo Ellipta) levofloxacin 750 mg tablet 750 mg PO DAILY 10 days #10 tabs 11/08/23 prednisone 10 mg tablet 50 mg (5 x 10 mg) PO DAILY #47 tabs 11/08/23 Allergies Allergy/AdvReac Type Severity Reaction Status Date / Time No Known Drug Allergies Allergy Verified 04/15/24 14:22 Review of Systems ROS Constitutional Denies: fever or chills Eyes Denies: change in vision Ears, nose, mouth, and throat Reports: nasal congestion Cardiovascular Denies: chest pain Respiratory Reports: cough; Denies: shortness of breath Gastrointestinal Denies: abdominal pain, nausea or vomiting Musculoskeletal Reports: extremity pain and joint pain; Denies: back pain or neck pain Integumentary/Breast Denies: rash Neurological Reports: dizziness and vertigo; Denies: headache, numbness in extremities or weakness in extremities Hematologic/Lymphatic Denies: easy bruising or easy bleeding PFSH [facility] Medical History (Updated 04/15/24 @ 17:05 by SMOOTH Santos) Centrilobular emphysema ?J43.2 - Centrilobular emphysema (ICD-10) Obesity ?E66.9 - Obesity, unspecified (ICD-10) History of tobacco abuse ?Z87.891 - Personal history of nicotine dependence (ICD-10) Elevated hemidiaphragm ?J98.6 - Disorders of diaphragm (ICD-10) Acute asthmatic bronchitis ?J45.909 - Unspecified asthma, uncomplicated (ICD-10) Dehydration ?E86.0 - Dehydration (ICD-10) Weakness ?R53.1 - Weakness (ICD-10) Acute dyspnea ?R06.00 - Dyspnea, unspecified (ICD-10) 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 - Broken internal right knee prosthesis, initial encounter (ICD-10) Umbilical hernia ?K42.9 - Umbilical hernia without obstruction or gangrene (ICD-10) Kidney stones ?N20.0 - Calculus of kidney (ICD-10) Hx of skin malignancy ?Z85.828 - Personal history of other malignant neoplasm of skin (ICD-10) Chest pain ?R07.9 - Chest pain, unspecified (ICD-10) Surgical History (Updated 09/02/23 @ 16:17 by Nory Patel) History of cataract surgery ?Z98.49 - Cataract extraction status, unspecified eye (ICD-10) History of renal stent H/O lithotripsy ?Z98.890 - Other specified postprocedural states (ICD-10) Family History (Updated 09/02/23 @ 16:18 by Nory Patel) Mother Family history of cancer Family history of hypertension Father Family history of diabetes mellitus Family history of hypertension Family history of myocardial infarction Social History Within the past year, how often did you have a drink containing alcohol: 2-4 times a month Smoking status: Former smoker Non-prescribed substance use: denies use Previous occupational history: Retired Highest level of school completed/degree received: some college, no degree Are you now , , , , never or living with a partner: In a typical week, how many times do you talk on the telephone with family, friends, or neighbors: 3 or more times per week How often do you get together with friends or relatives: 3 or more times per week How often do you attend christianity or anabaptism services: never Do you belong to any clubs or organizations such as christianity groups unions, fraternal or athletic groups, or school groups: no Total score: 2 Score interpretation: A score of greater than or equal to 2 indicates the lowest level of social isolation. Little interest or pleasure in doing things: not at all Feeling down, depressed, or hopeless: not at all Feel stressed/tense/nervous/anxious/difficulty sleeping: not at all Do you think of yourself as: straight/heterosexual Gender Identity: male Exam Narrative Exam Narrative: Gen.: Awake, alert, in no distress Head: Normocephalic, atraumatic ENT: Moist mucous membranes Respiratory: No respiratory distress, lungs clear bilaterally Cardio: Regular rate and rhythm Gastrointestinal: Abdomen is soft, nondistended and nontender to palpation Extremities: Moves extremities equally, no pedal edema Psych: Normal mood and affect Neuro: No focal neuro deficit Skin: Warm, dry, intact Constitutional Vital Signs, click to edit/add: Last Vital Signs Temp 98.4 F 04/15/24 14:22 Pulse 56 L 04/15/24 16:20 Resp 16 04/15/24 16:20 BP 149/71 H 04/15/24 16:13 Pulse Ox 95 04/15/24 16:20 O2 Del Method Room Air 04/15/24 14:22 Course Vital Signs Vital signs: Vital Signs Temperature 98.4 F 04/15/24 14:22 Pulse Rate 59 L 04/15/24 14:22 Respiratory Rate 16 04/15/24 14:22 Blood Pressure 165/89 H 04/15/24 14:22 Pulse Oximetry 96 04/15/24 14:22 Oxygen Delivery Method Room Air 04/15/24 14:22 Temperature 98.4 F 04/15/24 14:22 Pulse Rate 56 L 04/15/24 16:20 Respiratory Rate 16 04/15/24 16:20 Blood Pressure 149/71 H 04/15/24 16:13 Pulse Oximetry 95 04/15/24 16:20 Oxygen Delivery Method Room Air 04/15/24 14:22 MDM - Dizziness MDM Narrative Medical decision making narrative: Signs are stable in the ER, patient ambulated to the bathroom without difficulty or assistance. CT of the brain, chest x-ray, lab studies, urine specimen are all within normal limits. I discussed with the patient inpatient versus outpatient treatment, he states he would like to go home and medically there is no indication that he needs to be admitted at this time. Follow-up closely with Dr. Lerma's office and return to the ER if symptoms change or worsen. SUPERVISED APC VISIT, PHYSICIAN ATTESTATION: Based on the medical record the care appears appropriate. ? Medical Records Attestation: I reviewed the patient's medical records. Lab Data Attestation: I reviewed the patient's lab results. Labs: Lab Results 04/15/24 04/15/24 Range/Units 15:17 15:22 WBC 12.2 H (4.0-11.0) 10^3/uL RBC 5.53 (4.70-6.10) 10^6/uL Hgb 16.1 (14.0-18.0) g/dL Hct 47.4 (42.0-54.0) % MCV 85.7 (80.0-94.0) fL MCH 29.1 (25.9-34.0) pg MCHC 34.0 (29.9-35.2) g/dL RDW 14.6 (11.0-15.0) % Plt Count 235 (150-450) 10^3/uL MPV 9.2 L (9.5-13.5) fL Neut % (Auto) 69.2 (43.0-75.0) % Lymph % (Auto) 21.7 (20.5-60.0) % [place] % (Auto) 6.8 (1.7-12.0) % Eos % (Auto) 1.6 (0.9-7.0) % Baso % (Auto) 0.4 (0.2-2.0) % Neut # (Auto) 8.4 H (1.4-6.5) 10^3/uL Lymph # (Auto) 2.6 (1.2-3.8) 10^3/uL [place] # (Auto) 0.8 (0.3-0.8) 10^3/uL Eos # (Auto) 0.2 (0.0-0.7) 10^3/uL Baso # (Auto) 0.1 (0.0-0.1) 10^3/uL Abs Immat Gran (auto) 0.04 H (0.00-0.03) 10^3/uL Imm/Tot Granulo (auto) 0.3 (0.0-0.5) % PT 10.7 (9.0-11.6) sec INR 1.01 Sodium 135 L (136-145) mmol/L Potassium 3.9 (3.5-5.1) mmol/L Chloride 102 (98-107) mmol/L Carbon Dioxide 26.8 (21.0-32.0) mmol/L Anion Gap 10.1 BUN 16.0 (7.0-18.0) mg/dL Creatinine 0.91 (0.70-1.30) mg/dL Est GFR ( Amer) >60 (>=60) Est GFR (Non-Af Amer) >60 (>=60) BUN/Creatinine Ratio 17.6 Glucose 103 (74-106) mg/dL Lactate 1.3 (0.4-2.0) mmol/L Calcium 8.5 (8.5-10.1) mg/dL Total Bilirubin 0.7 (0.2-1.0) mg/dL AST 15 (15-37) U/L ALT 26 (16-63) U/L Alkaline Phosphatase 55 (46-116) U/L Troponin I High Sens 4.7 (4.0-76.1) pg/mL NT-Pro-B Natriuret Pep 90.0 (<=900.0) pg/mL Total Protein 6.3 L (6.4-8.2) g/dL Albumin 3.3 L (3.4-5.0) g/dL Globulin 3.0 g/dL Albumin/Globulin Ratio 1.1 TSH 1.665 (0.358-3.740) uIU/mL Urine Color Yellow (YELLOW) Urine Clarity Clear (CLEAR) Urine pH 5.5 (5.0-9.0) Ur Specific [place] >=1.030 A (1.005-1.025) Urine Protein Negative (NEG/TRACE) mg/dL Urine Glucose (UA) Negative (NEGATIVE) mg/dL Urine Ketones Negative (NEGATIVE) mg/dL Urine Occult Blood Trace-i (NEGATIVE) Urine Nitrite Negative (NEGATIVE) Urine Bilirubin Negative (NEGATIVE) Urine Urobilinogen 0.2 (0.2-1.0) EU/dL Ur Leukocyte Esterase Negative (NEGATIVE) Urine RBC 0-2 (0-2) #/HPF Urine WBC None seen (NONE SEEN) #/HPF Ur Squamous Epith Cells Rare (NONE/RARE) #/LPF Urine Crystals None seen (None Seen) #/HPF Urine Bacteria Trace A (NONE SEEN) #/HPF Urine Casts None seen (NONE SEEN) #/LPF Urine Mucus Small A (NONE SEEN) Ur Culture Indicated? No Imaging Data CT scan - head: Attestation: I have reviewed the pertinent imaging results. Radiologist's impression: ITS Impressions Head CT 04/15/24 15:35 IMPRESSION: No acute intracranial findings. Electronically authenticated by: SANDRA LOPEZ Date: 04/15/2024 15:54 ECG Data Attestation: I personally reviewed and interpreted this ECG as follows: (Normal sinus rhythm at a rate of 57, first-degree AV block with no acute ST elevation or ectopy. EKG reviewed by attending physician) Discharge Plan Discharge Chief Complaint: Dizziness Clinical Impression: Dizziness Patient Disposition: Home, Self-Care Time of Disposition Decision: 17:04 Condition: Good Prescriptions / Home Meds: No Action lisinopril 40 mg tablet 40 mg PO .QD montelukast 10 mg Tablet 10 mg PO QHS Qty: 30 11RF fluticasone propionate 50 mcg/actuation [place],Suspension 2 spray intranasal QD Qty: 16 11RF prednisone 10 mg tablet 50 mg PO DAILY Qty: 47 0RF Rx Instructions: 5/day for 3 days. 4/day for 3 days, 3/day for 3 days, 2/day for 3 days, 1/day for 3 days, 1/2 /day for 4 days levofloxacin 750 mg tablet 750 mg PO DAILY 10 Days Qty: 10 0RF fluticasone furoate-vilanterol [Breo Ellipta] 200-25 mcg/dose blister with device 1 inh inhalation DAILY Qty: 1 11RF fluconazole [Diflucan] 200 mg tablet 200 mg PO DAILY Qty: 10 0RF primidone 50 mg tablet 50 mg PO BID meloxicam 15 mg tablet 15 mg PO DAILY Rx Instructions: ONCE OR TWICE A DAY tamsulosin 0.4 mg capsule 0.4 mg PO BID potassium citrate 10 mEq (1,080 mg) tablet extended release 10 meq PO BID simvastatin 20 mg tablet 20 mg PO .QHS hydrochlorothiazide 12.5 mg capsule 12.5 mg PO QDAY allopurinol 300 mg tablet 300 mg PO DAILY solifenacin 10 mg tablet 10 mg PO DAILY aspirin 81 mg capsule 81 mg PO DAILY Qty: 30 11RF Print Language: [place]an Instructions: Lightheadedness (ED) Referrals: Guicho Lerma MD [Primary Care Provider] - As soon as possible
[2024-04-15] MEDS: MECLIZINE HCL 12.5 MG TABLET 25 MG PO (15:21)
[2024-04-15] MEDS: 0.9 % SODIUM CHLORIDE 1,000 ML 999 ML IV (15:21)
[2024-04-15] MEDS: METHYLPREDNISOLONE SOD SUCC PF 125 MG/2 ML VIAL IVP (15:22)
[2024-04-15 15:24] LABS: Basophils Absolute Auto 0.1 10^3/uL (0.0-0.1); Basophils Percent Auto 0.4 % (0.2-2.0); Eosinophils Absolute Auto 0.2 10^3/uL (0.0-0.7); Eosinophils Percent Auto 1.6 % (0.9-7.0); Hematocrit 47.4 % (42.0-54.0); Hemoglobin 16.1 g/dL (14.0-18.0); Immature Granulocytes Abs Auto 0.04 10^3/uL (0.00-0.03); Immature Granulocytes Pct Auto 0.3 % (0.0-0.5); Lymphocytes Absolute Auto 2.6 10^3/uL (1.2-3.8); Lymphocytes Percent Auto 21.7 % (20.5-60.0); Mean Corpuscular Hemoglobin 29.1 pg (25.9-34.0); Mean Corpuscular Volume 85.7 fL (80.0-94.0); Mean Platelet Volume 9.2 fL (9.5-13.5); Monocytes Absolute Auto 0.8 10^3/uL (0.3-0.8); Monocytes Percent Auto 6.8 % (1.7-12.0); Neutrophils Absolute Auto 8.4 10^3/uL (1.4-6.5); Neutrophils Percent Auto 69.2 % (43.0-75.0); Platelet Count 235 10^3/uL (150-450); Red Blood Count 5.53 10^6/uL (4.70-6.10); Red Cell Distribution Width 14.6 % (11.0-15.0); White Blood Count 12.2 10^3/uL (4.0-11.0)
--- NOTE | 2024-04-15 15:34 | XR_ITS ---
The [address] [address] Patient Name: RIZWAN LOCK MRN: [id number] date: 1950 Sex: M Assigned Patient Location: ER Current Patient Location: ER Accession/Order Number: [id number] Exam Date: 04/15/2024 15:30 Report Date: 04/15/2024 16:31 At the request of: IRIS REIS Procedure: XR chest 1V ONE-VIEW CHEST RADIOGRAPH, 04/15/2024 3:30 PM EDT COMPARISON: Chest, 03/31/2024. CLINICAL HISTORY: Dizzy, hypertension, cough and fatigue Findings and impression: 1. Stable mild chronic elevation of the right hemidiaphragm. Lungs are clear. 2. Mild cardiomegaly. 3. Orthopedic sutures again seen in the left humeral head. No acute osseous abnormality. Electronically authenticated by: Reilly CAST Date: 04/15/2024 16:31
--- NOTE | 2024-04-15 15:35 | CT_ITS ---
The [address] [address] Patient Name: RIZWAN LOCK MRN: [id number] date: 1950 Sex: M Assigned Patient Location: ER Current Patient Location: ER Accession/Order Number: [id number] Exam Date: 04/15/2024 15:32 Report Date: 04/15/2024 15:54 At the request of: IRIS REIS Procedure: CT head/brain wo con EXAMINATION: CT head/brain wo con, 04/15/2024 3:32 PM EDT HISTORY: Dizziness COMPARISON: 09/03/2023 TECHNIQUE: CT scan of the head was performed without IV contrast. CT dose reduction technique was used, including Automated Exposure Control. FINDINGS: BRAIN PARENCHYMA/CSF SPACES: Ventricles are normal in size for age. There is no hemorrhage, mass effect or midline shift. Mild low attenuation in the white matter consistent with chronic microvascular ischemia. PARANASAL SINUSES: Clear. SKULL BASE AND CALVARIUM: Normal. EXTRACRANIAL SOFT TISSUES: Normal. CT/CT head/brain wo con IMPRESSION: No acute intracranial findings. Electronically authenticated by: SANDRA LOPEZ Date: 04/15/2024 15:54
[2024-04-15 15:38] LABS: Alanine Aminotransferase 26 U/L (16-63); Albumin Globulin Ratio 1.1; Albumin Level 3.3 g/dL (3.4-5.0); Alkaline Phosphatase 55 U/L (46-116); Anion Gap 10.1; Aspartate Amino Transferase 15 U/L (15-37); BUN Creatinine Ratio 17.6; Bilirubin Total 0.7 mg/dL (0.2-1.0); Calcium 8.5 mg/dL (8.5-10.1); Carbon Dioxide 26.8 mmol/L (21.0-32.0); Chloride 102 mmol/L (98-107); Estimated GFR (African America >60 (>=60); Estimated GFR (Non-African Ame >60 (>=60); Glucose 103 mg/dL (74-106); Potassium 3.9 mmol/L (3.5-5.1); Sodium 135 mmol/L (136-145); Total Protein 6.3 g/dL (6.4-8.2)
[2024-04-15 15:39] LABS: Lactate/Lactic Acid 1.3 mmol/L (0.4-2.0)
[2024-04-15 15:41] LABS: INR 1.01; Prothrombin Time 10.7 sec (9.0-11.6)
[2024-04-15 15:41] LABS: Bilirubin Urine NEGATIVE (NEGATIVE); Blood Urine TRACE-I (NEGATIVE); Clarity Urine CLEAR (CLEAR); Color Urine YELLOW (YELLOW); Glucose Urine UA NEGATIVE (NEGATIVE); Ketones Urine NEGATIVE (NEGATIVE); Leukocyte Esterase Urine NEGATIVE (NEGATIVE); Nitrite Urine NEGATIVE (NEGATIVE); Protein Urine NEGATIVE (NEG/TRACE); Specific Gravity Urine >=1.030 (1.005-1.025); Urobilinogen Urine 0.2 EU/dL (0.2-1.0); pH Urine 5.5 (5.0-9.0)
[2024-04-15 15:46] LABS: Thyroid Stimulating Hormone 1.665 uIU/mL (0.358-3.740); Troponin I High Sensitivity 4.7 pg/mL (4.0-76.1)
[2024-04-15 16:25] LABS: Urine Microscopic Indicated YES
[2024-04-15 16:30] LABS: Bacteria Urine TRACE #/HPF (NONE SEEN); Cast Seen? NONE SEEN #/LPF (NONE SEEN); Crystals Seen? None Seen #/HPF (None Seen); Mucus Urine SMALL (NONE SEEN); RBC Urine 0-2 #/HPF (0-2); Squamous Epithelial Cell Urine RARE #/LPF (NONE/RARE); Urine Culture Indicated NO; WBC Urine NONE SEEN #/HPF (NONE SEEN)
== END 2024-04-15 17:32 | disposition home or self-care (01) ==
PROVIDERS: Physician Assistant; Emergency Provider Student in an Organized Health Care Education/Training Program; PCP Family Medicine
DX: R42 Dizziness and giddiness (principal); R05.9 Cough, unspecified; Z87.891 Personal history of nicotine dependence; R53.83 Other fatigue; I10 Essential (primary) hypertension
CPT/HCPCS: 36415; 70450; 71045; 80053; 81001; 83605; 83880; 84443; 84484; 85025; 85610; 93005; 99285; J2919

== ENCOUNTER 2024-04-17 10:11 | Outpatient (OUT) | payer MEDICARE, OTHER, SELFPAY ==
--- NOTE | 2024-04-17 | US_ITS ---
[address] [address] Patient Name: RIZWAN LOCK MRN: [id number] date: 1950 Sex: M Assigned Patient Location: Current Patient Location: Accession/Order Number: [id number] Exam Date: 04/17/2024 10:21 Report Date: 04/19/2024 07:45 At the request of: MICKI MCRAE Procedure: US renal BI EXAMINATION: US renal BI HISTORY: KIDNEY STONE N20.0 COMPARISON: No relevant comparison available. TECHNIQUE: Ultrasound examination was performed of the bladder. FINDINGS: Right Kidney: Normal in size, contour and cortical echotexture. The cortex measures 1.4 cm. No solid cortical mass, hydronephrosis or obstructing nephrolithiasis Height: 6.55 cm Length: 13.80 cm Width: 5.12 cm Left Kidney: Normal in size, contour and cortical echotexture. The cortex measures 1.2 cm. No solid cortical mass, or hydronephrosis. Scattered punctate areas of increased echogenicity likely representing nonobstructing nephrolithiasis Height: 6.43 cm Length: 14.25 cm Width: 5.83 cm Urinary bladder is nondistended with a volume of 23 mL US/US renal BI IMPRESSION: Nonobstructing left nephrolithiasis Electronically authenticated by: RAFAEL GRAVES Date: 04/19/2024 07:45
--- OUTSIDE RECORDS SUMMARY | 2024-04-17 10:14 | XMS_ITS | CCD ---
Author Organization [facility] Care Team Providers Care Hand W[employer] Car[employer] Mender Name Role Phone MD Marielle Lerma Primary Care Provider [phone] MD Miki Zeng Attending Provider Marielle Lerma Primary Care Physician [phone] THOR, DR SWEET Admitting Unavailable THOR, DR [...] Care Unavailable THOR, DR SWEET Consulting Unavailable GOSHEN, DR RAFAEL Pizano Consulting Unavailable THOR, DR [...] Medication Allergies] Propensity to adverse reactions (disorder) [facility] Rep[facility] Medications Current Medications Medication Drug Class(es) [...] mouth every four to six hours Hydrocodone-Acetaminophen ([place]) 5-325 mg tablet Active 1 TAB PO EVERY 4-6 HOURS 40 7 September 28, 2019 1:45pm allopurinol 300 mg oral tablet (2 sources) Xanthine Oxidase Inhibitor Start: 03-10-2023 take 1 tablet by mouth once daily allopurinol 300 mg Tab 300 mg = 1 tab(s), Oral, Daily, # 90 tab(s), Refills(s) 3, Pharmacy: [facility]/pharmacy #[id number], 180, cm, 08/19/22 9:50:00 EST, Height/Length Dosing, 136.2, kg, 08/19/22 9:50:00 EST, Weight Dosing Start Date: 03/10/23 Status: Ordered Start: 02-25-2022 allopurinol 30 0 mg Tab 150 mg = 0.5 tab(s), Oral, Daily, # 30 tab(s), Refills(s) 11, Pharmacy: [facility] #[id number], 180, cm, 02/25/22 14:22:00 EDT, [...] Ordered Start: 01-02-2018 [facility] Aspirin (Aspir-81) 81 mg Tablet,Delayed [...] Daily, # 90 cap(s), Refills(s) 3, Pharmacy: [facility]/pharmacy #[id number], 180, cm, 08/19/22 9:50:00 EST, Height/Length Dosing, 136.2, kg, 08/19/22 9:50:00 EST, Weight Dosing Start Date: 08/19/22 Status: Ordered Start: 02-25-2022 take 1 capsule by [facility] once daily hydrochlorothiazide 12.5 mg Cap 12.5 mg = 1 cap(s), Oral, Daily, # 30 cap(s), Refills(s) 6, Pharmacy: [facility] #72, 180, cm, 02/25/22 14:22:00 EDT, Height/Length [...] PO Twice daily January 02, 2018 9:35am Ggehimdk-Ehp-Vj-Lycopen-Lute in (Centrum Silver) 0.4-300-250 mg-mcg-mcg Tablet (1 source) Start: 09-02-2019 take 1 tablet by mouth once daily Beakonll-Hbw-Ja-Lycopen-Lutein (Centrum Silver) 0.4-300-250 mg-mcg-mcg Tablet Active 1 [...] BID, # 90 tab(s), Refills(s) 3, Pharmacy: [facility]/pharmacy #[id number], 180, cm, 08/19/22 9:50:00 EST, [...] 90 tab(s), Refills(s) 11, Pharmacy: [facility] #72, 180, cm, 02/25/22 14:22:00 EDT, Height/Length Dosing, 135, kg, 02/25/22 14:22:00 EDT, Weight Dosing Start Date: 04/08/22 Stop Date: 12/23/24 Status: Ordered Start: 02-25-2022 take 1 tablet by isa th once daily Vesicare 10 mg Tab 10 mg = 1 tab(s), Oral, Daily, # 30 tab(s), Refills(s) 11, Pharmacy: [facility]/pharmacy #[id number], 180, cm, 02/25/22 14:22:00 EDT, Height/Length Dosing, 135, kg, 02/25/22 14:22:00 EDT, Weight Dosing Start Date: 02/25/22 Status: Ordered tadalafil 20 mg oral tablet (3 sources) Phosphodiesterase 5 Inhibitor Start: 10-23-2021 take 1 tablet by mouth once daily Cialis 20 mg Tab 20 mg = 1 tab(s), Oral, Daily, # 30 tab(s), Refills(s) 6, Pharmacy: [facility]/pharmacy #[id number], 180, cm, 10/22/21 14:56:00 EDT, [...] Daily, # 90 cap(s), Refills(s) 3, Pharmacy: [facility]/pharmacy #[id number], 180, cm, 04/11/23 11:56:00 EDT, [...] Coronary atherosclerosis; Translations: [Atherosclerotic heart disease of [place] coronary artery without angina pectoris] Onset: 11-05-2021 [...] Onset: 08-01-2022 Chronic Other 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) retirement (current) use of aspirin; 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] Onset: 08-01-2022 Episodic Other 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) Other snf (current) 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; Translations: [OTH APPEALS ASSISTANT CURRENT DRUG THERAPY] Onset: 08-01-2022 Episodic Other [...] Onset: 02-18-2022 Episodic Other 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) retirement (current) use of anticoagulants; Translations: [APPEALS ASSISTANT CURRNT USE ANTICOAGULANTS] Onset: 11-05-2021 Episodic Other [...] 07-27-2022 BASO # 0.1 103/ul Normal 0.0-0.1 [facility] Comment on above: Performed By: #### U DINA, LIPID, TSH, BNP, CMP, T7 #### [facility] [address] [place] [address] Dr. Suzie Brooks Basophils/100 WBC (Bld) 0.5 % Normal 0.2-2.0 [facility] Comment on above: Performed By: #### U DINA, LIPID, TSH, BNP, CMP, T7 #### [facility] [address] [place] [address] Dr. Suzie Brooks EO # 0.4 103/ul Normal 0.0-0.7 [facility] Comment on above: Performed By: #### U DINA, LIPID, TSH, BNP, CMP, T7 #### [facility] [address] [place] [address] Dr. Suzie Brooks Eosinophils/100 WBC (Bld) 3.3 % Normal 0.9-7.0 [facility] Comment on above: Performed By: #### U DINA, LIPID, TSH, BNP, CMP, T7 #### [facility] [address] [place] [address] Dr. Suzie Brooks Erythrocyte distribution width (RBC) [Ratio] 14.6 % Normal 11.0-15.0 [facility] Comment on above: Performed By: #### U DINA, LIPID, TSH, BNP, CMP, T7 #### [facility] [address] [place] [address] Dr. Suzie Brooks Hematocrit (Bld) [Volume fraction] 42.0 % Normal 42.0-54.0 [facility] Comment on above: Performed By: #### U DINA, LIPID, TSH, BNP, CMP, T7 #### [facility] [address] [place] [address] Dr. Suzie Brooks Hemoglobin (Bld) [Mass/Vol] 14.1 g/dL Normal 14.0-18.0 [facility] Comment on above: Performed By: #### U DINA, LIPID, TSH, BNP, CMP, T7 #### [facility] [address] [place] [address] Dr. Suzie Brooks IG # 0.03 10e3/ul Normal 0.00-0.03 [facility] Comment on above: Performed By: #### U DINA, LIPID, TSH, BNP, CMP, T7 #### [facility] [address] [place] [address] Dr. Suzie Brooks IG % 0.3 % Normal 0.0-0.5 [facility] Comment on above: Performed By: #### U DINA, LIPID, TSH, BNP, CMP, T7 #### [facility] [address] [place] [address] Dr. Suzie Brooks LYMPH # 3.1 103/ul Normal 1.2-3.8 [facility] Comment on above: Performed By: #### U DINA, LIPID, TSH, BNP, CMP, T7 #### [facility] [address] [place] [address] Dr. Suzie Brooks Lymphocytes/100 WBC (Bld) 28.2 % Normal 20.5-60.0 [facility] Comment on above: Performed By: #### U DINA, LIPID, TSH, BNP, CMP, T7 #### [facility] [address] [place] [address] Dr. Suzie Brooks MANUAL DIFF REQ NO Normal [facility] Comment on above: Performed By: #### U DINA, LIPID, TSH, BNP, CMP, T7 #### [facility] [address] [place] [address] Dr. Suzie Brooks MCH (RBC) [Entitic mass] 28.5 pg Normal 25.9-34.0 [facility] Comment on above: Performed By: #### U DINA, LIPID, TSH, BNP, CMP, T7 #### [facility] [address] [place] [address] Dr. Suzie Brooks MCHC (RBC) [Mass/Vol] 33.6 g/dL Normal 29.9-35.2 [facility] Comment on above: Performed By: #### U DINA, LIPID, TSH, BNP, CMP, T7 #### [facility] [address] [address] [address] Suzie Brooks MCV (RBC) [Entitic vol] 85.0 fL Normal 80.0-94.0 [facility] Comment on above: Performed By: #### U DINA, LIPID, TSH, BNP, CMP, T7 #### [facility] [address] [place] [address] Dr. Suzie Brooks MONO # 0.8 103/ul Normal 0.3-0.8 [facility] Comment on above: Performed By: #### U DINA, LIPID, TSH, BNP, CMP, T7 #### [facility] [address] [place] [address] Dr. Suzie Brooks Monocytes/100 WBC (Bld) 7.2 % Normal 1.7-12.0 [facility] Comment on above: Performed By: #### U DINA, LIPID, TSH, BNP, CMP, T7 #### [facility] [address] [place] [address] Dr. Suzie Brooks NEUT # 6.7 103/ul Critically high 1.4-6.5 [facility] Comment on above: Performed By: #### U DINA, LIPID, TSH, BNP, CMP, T7 #### [facility] [address] [place] [address] Dr. Suzie Brooks Neutrophils/100 WBC (Bld) 60.5 % Normal 43.0-75.0 [facility] Comment on above: Performed By: #### U DINA, LIPID, TSH, BNP, CMP, T7 #### [facility] [address] [place] [address] Dr. Suzie Brooks Platelet mean volume (Bld) [Entitic vol] 9.6 fL Normal 9.5-13.5 [facility] Comment on above: Performed By: #### U DINA, LIPID, TSH, BNP, CMP, T7 #### [facility] [address] [place] [address] Dr. Suzie Brooks PLT 266 103/ul Normal 150-450 [facility] Comment on above: Performed By: #### U DINA, LIPID, TSH, BNP, CMP, T7 #### [facility] [address] [address] [address] Suzie Brooks RBC 4.94 106/ul Normal 4.70-6.10 [facility] Comment on above: Performed By: #### U DINA, LIPID, TSH, BNP, CMP, T7 #### [facility] [address] [place] [address] Dr. Suzie Brooks WBC 11.1 103/ul Critically high 4.0-11.0 [facility] Comment on above: Performed By: #### U DINA, LIPID, TSH, BNP, CMP, T7 #### [facility] [address] [place] [address] Dr. Suzie Brooks PROF 14(COMP METB)on 022 Albumin [Mass/Vol] 3.2 g/dL Critically low 3.4-5.0 [facility] Comment on above: Performed By: #### C VDTBH #### [facility] [address] [place] [address] Dr. Suzie Brooks Albumin/Globulin [Mass ratio] 0.9 {ratio} Normal [facility] Comment on above: Performed By: #### C VDTBH #### [facility] [address] [place] [address] Dr. Suzie Brooks ALP [Catalytic activity/Vol] 60 U/L Normal 46-116 [facility] Comment on above: Performed By: #### C VDTBH #### [facility] [address] [place] [address] Dr. Suzie Brooks ALT [Catalytic activity/Vol] 27 U/L Normal 16-63 [facility] Comment on above: Performed By: #### C VDTBH #### [facility] [address] [place] [address] Dr. Suzie Brooks Anion gap [Moles/Vol] 10.4 mmol/L Normal [facility] Comment on above: Performed By: #### C VDTBH #### [facility] [address] [place] [address] Dr. Suzie Brooks AST [Catalytic activity/Vol] 23 U/L Normal 15-37 [facility] Comment on above: Performed By: #### C VDTBH #### [facility] [address] [place] [address] Dr. Suzie Brooks Bilirubin [Mass/Vol] 0.4 mg/dL Normal 0.2-1.0 [facility] Comment on above: Performed By: #### C VDTBH #### [facility] [address] [place] [address] Dr. Suzie Brooks Calcium [Mass/Vol] 8.4 mg/dL Critically low 8.5-10.1 [facility] Comment on above: Performed By: #### C VDTBH #### [facility] [address] [place] [address] Dr. Suzie Brooks Chloride [Moles/Vol] 104 mmol/L Normal 98-107 [facility] Comment on above: Performed By: #### C VDTBH #### [facility] [address] [place] [address] Dr. Suzie Brooks CO2 [Moles/Vol] 26.1 mmol/L Normal 21.0-32.0 [facility] Comment on above: Performed By: #### C VDTBH #### [facility] [address] [place] [address] Dr. Suzie Brooks Creatinine [Mass/Vol] 0.90 mg/dL Normal 0.70-1.30 [facility] Comment on above: Performed By: #### C VDTBH #### [facility] [address] [place] [address] Dr. Suzie Brooks EGFR-AF SERBIAN >60 Normal >=60 [facility] Comment on above: Performed By: #### C VDTBH #### [facility] [address] [place] [address] Dr. Suzie Brooks EGFR-NON AF SERBIAN >60 Normal >=60 [facility] Comment on above: Performed By: #### C VDTBH #### [facility] [address] [place] [address] Dr. Suzie Brooks Globulin (S) [Mass/Vol] 3.4 g/dL Normal [facility] Comment on above: Performed By: #### C VDTBH #### [facility] [address] [address] [address] Suzie Brooks Glucose [Mass/Vol] 111 mg/dL Critically high 74-106 T [facility] Comment on above: Performed By: #### C VDTBH #### [facility] [address] [place] [address] Dr. Suzie Brooks Potassium [Moles/Vol] 3.5 mmol/L Normal 3.5-5.1 [facility] Comment on above: Performed By: #### C VDTBH #### [facility] [address] [place] [address] Dr. Suzie Brooks Protein [Mass/Vol] 6.6 g/dL Normal 6.4-8.2 [facility] Comment on above: Performed By: #### C VDTBH #### [facility] [address] [place] [address] Dr. Suzie Brooks Sodium [Moles/Vol] 137 mmol/L Normal 136-145 [facility] Comment on above: Performed By: #### C VDTBH #### [facility] [address] [place] [address] Dr. Suzie Brooks Urea nitrogen [Mass/Vol] 13.0 mg/dL Normal 7.0-18.0 [facility] Comment on above: Performed By: #### C VDTBH #### [facility] [address] [place] [address] Dr. Suzie Brooks Urea nitrogen/Creatinine [Mass ratio] 14.4 mg/mg Normal [facility] Comment on above: Performed By: #### C VDTBH #### [facility] [address] [place] [address] Dr. Suzie Brooks BNPon 07-26-2022 Natriuretic peptide B (Bld) [Mass/Vol] 118.0 pg/mL Normal <=900.0 [facility] Comment on above: Performed By: #### U DINA, LIPID, TSH, BNP, CMP, T7 #### [facility] [address] [place] [address] Dr. Suzie Brooks CARDIAC MJ 3-6on 2 CK [Catalytic activity/Vol] 240 U/L Normal 39-308 [facility] Comment on above: Performed By: #### U DINA, LIPID, TSH, BNP, CMP, T7 #### [facility] [address] [address] [address] Suzie Brooks CK.MB [Mass/Vol] 3.43 ng/mL Normal <=3.60 [facility] Comment on above: Performed By: #### U DINA, LIPID, TSH, BNP, CMP, T7 #### [facility] [address] [address] [address] Suzie Brooks HSTROP 8.6 pg/mL Normal 4.0-76.1 [facility] Comment on above: Result Comment: CUT- OFF POINTS HAVE BEEN ESTABLISHED BASED ON THE FOURTH UNIVERSAL DEFINITIONS OF MYOCARDIAL INFARCTION. THE UPPER REFERENCE LIMIT (URL) OF TROPONIN, DEFINED THE 99TH PERCENTILE OF cTnI DISTRIBUTION IN A REFERENCE POPULATION, HAS BEEN CONFIRMED THE DECISION THRESHOLD FOR DC DIAGNOSIS. Performed By: #### U DINA, LIPID, TSH, BNP, CMP, T7 #### [facility] [address] [place] [address] Dr. Suzie Brooks CK [Catalytic activity/Vol] 239 U/L Normal 39-308 [facility] Comment on above: Performed By: #### M AG24 #### [facility] [address] [address] [address] Suzie Brooks CK.MB [Mass/Vol] 2.93 ng/mL Normal <=3.60 [facility] Comment on above: Performed By: #### M AG24 #### [facility] [address] [place] [address] Dr. Suzie Brooks HSTROP 10.4 pg/mL Normal 4.0-76.1 [facility] Comment on above: Result Comment: CUT- OFF POINTS HAVE BEEN ESTABLISHED BASED ON THE FOURTH UNIVERSAL DEFINITIONS OF MYOCARDIAL INFARCTION. THE UPPER REFERENCE LIMIT (URL) OF TROPONIN, DEFINED THE 99TH PERCENTILE OF cTnI DISTRIBUTION IN A REFERENCE POPULATION, HAS BEEN CONFIRMED THE DECISION THRESHOLD FOR DC DIAGNOSIS. Performed By: #### M AG24 #### [facility] [address] [address] [address] Suzie Brooks CARDIAC MJ ADMITon 022 CK [Catalytic activity/Vol] 234 U/L Normal 39-308 [facility] Comment on above: Performed By: #### O X24HR #### [facility] [address] [place] [address] Dr. Suzie Brooks CK.MB [Mass/Vol] 3.37 ng/mL Normal <=3.60 [facility] Comment on above: Performed By: #### O X24HR #### [facility] [address] [place] [address] Dr. Suzie Brooks HSTROP 9.0 pg/mL Normal 4.0-76.1 [facility] Comment on above: Result Comment: CUT- OFF POINTS HAVE BEEN ESTABLISHED BASED ON THE FOURTH UNIVERSAL DEFINITIONS OF MYOCARDIAL INFARCTION. THE UPPER REFERENCE LIMIT (URL) OF TROPONIN, DEFINED THE 99TH PERCENTILE OF cTnI DISTRIBUTION IN A REFERENCE POPULATION, HAS BEEN CONFIRMED THE DECISION THRESHOLD FOR DC DIAGNOSIS. Performed By: #### O X24HR #### [facility] [address] [place] [address] Dr. Suzie Brooks EDIE 85 ng/mL Normal 16-96 [facility] Comment on above: Performed By: #### O X24HR #### [facility] [address] [place] [address] Dr. Suzie Brooks CBC AUTO DIFFon 07-26-2022 BASO # 0.1 103/ul Normal 0.0-0.1 [facility] Comment on above: Performed By: #### U DINA, LIPID, TSH, BNP, CMP, T7 #### [facility] [address] [place] [address] Dr. Suzie Brooks Basophils/100 WBC (Bld) 0.4 % Normal 0.2-2.0 [facility] Comment on above: Performed By: #### U DINA, LIPID, TSH, BNP, CMP, T7 #### [facility] [address] [place] [address] Dr. Suzie Brooks EO # 0.3 103/ul Normal 0.0-0.7 [facility] Comment on above: Performed By: #### U DINA, LIPID, TSH, BNP, CMP, T7 #### [facility] [address] [address] [address] Suzie Brooks Eosinophils/100 WBC (Bld) 2.5 % Normal 0.9-7.0 [facility] Comment on above: Performed By: #### U DINA, LIPID, TSH, BNP, CMP, T7 #### [facility] [address] [address] [address] Suzie Brooks Erythrocyte distribution width (RBC) [Ratio] 14.4 % Normal 11.0-15.0 [facility] Comment on above: Performed By: #### U DINA, LIPID, TSH, BNP, CMP, T7 #### [facility] [address] [place] [address] Dr. Suzie Brooks Hematocrit (Bld) [Volume fraction] 46.0 % Normal 42.0-54.0 [facility] Comment on above: Performed By: #### U DINA, LIPID, TSH, BNP, CMP, T7 #### [facility] [address] [place] [address] Dr. Suzie Brooks Hemoglobin (Bld) [Mass/Vol] 15.6 g/dL Normal 14.0-18.0 [facility] Comment on above: Performed By: #### U DINA, LIPID, TSH, BNP, CMP, T7 #### [facility] [address] [place] [address] Dr. Suzie Brooks IG # 0.07 10e3/ul Critically high 0.00-0.03 [facility] Comment on above: Performed By: #### U DINA, LIPID, TSH, BNP, CMP, T7 #### [facility] [address] [place] [address] Dr. Suzie Brooks IG % 0.6 % Critically high 0.0-0.5 [facility] Comment on above: Performed By: #### U DINA, LIPID, TSH, BNP, CMP, T7 #### [facility] [address] [place] [address] Dr. Suzie Brooks LYMPH # 2.9 103/ul Normal 1.2-3.8 [facility] Comment on above: Performed By: #### U DINA, LIPID, TSH, BNP, CMP, T7 #### [facility] [address] [address] [address] Suzie Brooks Lymphocytes/100 WBC (Bld) 24.2 % Normal 20.5-60.0 [facility] Comment on above: Performed By: #### U DINA, LIPID, TSH, BNP, CMP, T7 #### [facility] [address] [place] [address] Dr. Suzie Brooks MANUAL DIFF REQ NO Normal [facility] Comment on above: Performed By: #### U DINA, LIPID, TSH, BNP, CMP, T7 #### [facility] [address] [place] [address] Dr. Suzie Brooks MCH (RBC) [Entitic mass] 28.6 pg Normal 25.9-34.0 [facility] Comment on above: Performed By: #### U DINA, LIPID, TSH, BNP, CMP, T7 #### [facility] [address] [place] [address] Dr. Suzie Brooks MCHC (RBC) [Mass/Vol] 33.9 g/dL Normal 29.9-35.2 [facility] Comment on above: Performed By: #### U DINA, LIPID, TSH, BNP, CMP, T7 #### [facility] [address] [place] [address] Dr. Suzie Brooks MCV (RBC) [Entitic vol] 84.4 fL Normal 80.0-94.0 [facility] Comment on above: Performed By: #### U DINA, LIPID, TSH, BNP, CMP, T7 #### [facility] [address] [place] [address] Dr. Suzie Brooks MONO # 0.8 103/ul Normal 0.3-0.8 [facility] Comment on above: Performed By: #### U DINA, LIPID, TSH, BNP, CMP, T7 #### [facility] [address] [place] [address] Dr. Suzie Brooks Monocytes/100 WBC (Bld) 6.7 % Normal 1.7-12.0 [facility] Comment on above: Performed By: #### U DINA, LIPID, TSH, BNP, CMP, T7 #### [facility] [address] [address] [address] Suzie Brooks NEUT # 7.8 103/ul Critically high 1.4-6.5 [facility] Comment on above: Performed By: #### U DINA, LIPID, TSH, BNP, CMP, T7 #### [facility] [address] [address] [address] Suzie Brooks Neutrophils/100 WBC (Bld) 65.6 % Normal 43.0-75.0 [facility] Comment on above: Performed By: #### U DINA, LIPID, TSH, BNP, CMP, T7 #### [facility] [address] [address] [address] Suzie Brooks Platelet mean volume (Bld) [Entitic vol] 9.7 fL Normal 9.5-13.5 [facility] Comment on above: Performed By: #### U DINA, LIPID, TSH, BNP, CMP, T7 #### [facility] [address] [address] [address] Suzie Brooks PLT 289 103/ul Normal 150-450 [facility] Comment on above: Performed By: #### U DINA, LIPID, TSH, BNP, CMP, T7 #### [facility] [address] [address] [address] Suzie Brooks RBC 5.45 106/ul Normal 4.70-6.10 [facility] Comment on above: Performed By: #### U DINA, LIPID, TSH, BNP, CMP, T7 #### [facility] [address] [address] [address] Suzie Brooks WBC 11.9 103/ul Critically high 4.0-11.0 [facility] Comment on above: Performed By: #### U DINA, LIPID, TSH, BNP, CMP, T7 #### [facility] [address] [address] [address] Suzie Brooks CTA CHEST WO W [...] BEHZAD CARRASQUILLO Date: 2022-07-26 11:59 Normal [facility] Covid-19 PCR (CVDTB)on 07-11 SARS-CoV-2 (COVID-19) RNA SUKHJINDER+probe Ql (Unsp spec) Not detected Normal NOT DETECTED [facility] Comment on above: Result Comment: When diagnostic [...] for this test is supported by the Quality Director of Health and Human Service's declaration that [...] DINA, LIPID, TSH, BNP, CMP, T7 #### [facility] [address] [place], [place] [address] Dr. Suzie Brooks D-DIMERon 07-26-2022 D-DIMER 0.88 mg/L FEU Critically high <=0.59 [facility] Comment on above: Performed By: #### C VDTBH #### [facility] [address] [place], [place] [address] Dr. Suzie Brooks D-DIMER COMMENTS SEE BELOW Normal [facility] Comment on above: Result Comment: Incr [...] hospitalization. Performed By: #### C VDTB #### [facility] [id number] Suzie Brooks ECHOCARDIO M/2D COMPLETEon 1 09-26-2021 ECHOCARDIO M/2D COMPLETE Patient: TMO APARICIO Exam Date: 07/26/2022 : 1950 Gender:M Ordering : DR MARIELLE LERMA . Admission #: [id number] Family : Order #: [id number] CLICK HERE TO VIEW EXAM ECHOCARDIOGRAM REPORT [...] Rios M.D. on 07/26/2022 at 16:22 Normal [facility] PROF 14(COMP METB)on 022 Albumin [Mass/Vol] 3.6 g/dL Normal 3.4-5.0 [facility] Comment on above: Performed By: #### U DINA, LIPID, TSH, BNP, CMP, T7 #### [facility] [address] [place] [address] Dr. Suzie Brooks Albumin/Globulin [Mass ratio] 0.9 {ratio} Normal [facility] Comment on above: Performed By: #### U DINA, LIPID, TSH, BNP, CMP, T7 #### [facility] [address] [place] [address] Dr. Suzie Brooks ALP [Catalytic activity/Vol] 70 U/L Normal 46-116 [facility] Comment on above: Performed By: #### U DINA, LIPID, TSH, BNP, CMP, T7 #### [facility] [address] [place] [address] Dr. Suzie Brooks ALT [Catalytic activity/Vol] 30 U/L Normal 16-63 [facility] Comment on above: Performed By: #### U DINA, LIPID, TSH, BNP, CMP, T7 #### [facility] [address] [place] [address] Dr. Suzie Brooks Anion gap [Moles/Vol] 9.2 mmol/L Normal [facility] Comment on above: Performed By: #### U DINA, LIPID, TSH, BNP, CMP, T7 #### [facility] [address] [place] [address] Dr. Suzie Brooks AST [Catalytic activity/Vol] 29 U/L Normal 15-37 [facility] Comment on above: Performed By: #### U DINA, LIPID, TSH, BNP, CMP, T7 #### [facility] [address] [place] [address] Dr. Suzie Brooks Bilirubin [Mass/Vol] 0.5 mg/dL Normal 0.2-1.0 [facility] Comment on above: Performed By: #### U DINA, LIPID, TSH, BNP, CMP, T7 #### [facility] [address] [address] [address] Suzie Brooks Calcium [Mass/Vol] 8.8 mg/dL Normal 8.5-10.1 [facility] Comment on above: Performed By: #### U DINA, LIPID, TSH, BNP, CMP, T7 #### [facility] [address] [address] [address] Suzie Brooks Chloride [Moles/Vol] 102 mmol/L Normal 98-107 [facility] Comment on above: Performed By: #### U DINA, LIPID, TSH, BNP, CMP, T7 #### [facility] [address] [address] [address] Suzie Brooks CO2 [Moles/Vol] 27.2 mmol/L Normal 21.0-32.0 [facility] Comment on above: Performed By: #### U DINA, LIPID, TSH, BNP, CMP, T7 #### [facility] [address] [place] [address] Dr. Suize Brooks Creatinine [Mass/Vol] 0.99 mg/dL Normal 0.70-1.30 [facility] Comment on above: Performed By: #### U DINA, LIPID, TSH, BNP, CMP, T7 #### [facility] [address] [place] [address] Dr. Suzie Brooks EGFR-AF SERBIAN >60 Normal >=60 [facility] Comment on above: Performed By: #### U DINA, LIPID, TSH, BNP, CMP, T7 #### [facility] [address] [place] [address] Dr. Suzie Brooks EGFR-NON AF SERBIAN >60 Normal >=60 [facility] Comment on above: Performed By: #### U DINA, LIPID, TSH, BNP, CMP, T7 #### [facility] [address] [place] [address] Dr. Suzie Brooks Globulin (S) [Mass/Vol] 3.9 g/dL Normal [facility] Comment on above: Performed By: #### U DINA, LIPID, TSH, BNP, CMP, T7 #### [facility] [address] [place] [address] Dr. Suzie Brooks Glucose [Mass/Vol] 125 mg/dL Critically high 74-106 T [facility] Comment on above: Performed By: #### U DINA, LIPID, TSH, BNP, CMP, T7 #### [facility] [address] [place] [address] Dr. Suzie Brooks Potassium [Moles/Vol] 3.4 mmol/L Critically low 3.5-5.1 [facility] Comment on above: Performed By: #### U DINA, LIPID, TSH, BNP, CMP, T7 #### [facility] [address] [place] [address] Dr. Suzie Brooks Protein [Mass/Vol] 7.5 g/dL Normal 6.4-8.2 [facility] Comment on above: Performed By: #### U DINA, LIPID, TSH, BNP, CMP, T7 #### [facility] [address] [place] [address] Dr. Suzie Brooks Sodium [Moles/Vol] 135 mmol/L Critically low 136-145 [facility] Comment on above: Performed By: #### U DINA, LIPID, TSH, BNP, CMP, T7 #### [facility] [address] [place] [address] Dr. Suzie Brooks Urea nitrogen [Mass/Vol] 15.0 mg/dL Normal 7.0-18.0 [facility] Comment on above: Performed By: #### U DINA, LIPID, TSH, BNP, CMP, T7 #### [facility] [address] [place] [address] Dr. Suzie Brooks Urea nitrogen/Creatinine [Mass ratio] 15.2 mg/mg Normal [facility] Comment on above: Performed By: #### U DINA, LIPID, TSH, BNP, CMP, T7 #### [facility] [address] [place] [address] Dr. Suzie Brooks PROTIMEon 07-26-2022 INR Coag (PPP) [Relative time] 0.95 {INR} Normal [facility] Comment on above: Performed By: #### C VDTBH #### [facility] [address] [place] [address] Dr. Suzie Brooks INR GUIDELINES SEE BELOW Normal [facility] Comment on above: Result Comment: TOMMY RED INR: 2.0 - 3.0 CONDITIONS NOT LISTED BELOW 2.5 - 3.5 FOR PROSTHETIC HEART VALVE REPLACEMENT 2.5 - 3.5 RECURRENT THROMBOSIS Performed By: #### C VDTBH #### [facility] [address] [place] [address] Dr. Suzie Brooks PT Coag (PPP) [Time] 10.3 s Normal 9.0-11.6 [facility] Comment on above: Performed By: #### C VDTBH #### [facility] [address] [place] [address] Dr. Suzie Brooks PTTon 07-26-2022 aPTT Coag (Bld) [Time] 28.2 s Normal 22.3-36.2 [facility] Comment on above: Performed By: #### C VDTBH #### [facility] [address] [place] [address] Dr. Suzie Brooks TSHon 07-26-2022 TSH 2.000 uIU/mL Normal 0.358-3.740 [facility] Comment on above: Performed By: #### O X24HR #### [facility] [address] [place] [address] Dr. Suzie Brooks XR CHEST 1 Von [...] BEHZAD CARRASQUILLO Date: 2022-07-26 10:51 Normal [facility] CREATININEon 07-18-2022 Creatinine [Mass/Vol] 0.93 mg/dL Normal 0.70-1.30 [facility] Comment on above: Performed By: #### U DINA, LIPID, TSH, BNP, CMP, T7 #### [facility] [address] [place], [place] [address] Dr. Suzie Brooks EGFR-AF SERBIAN >60 Normal >=60 [facility] Comment on above: Performed By: #### U DINA, LIPID, TSH, BNP, CMP, T7 #### [facility] [address] [place], [place] [address] Dr. Suzie Brooks EGFR-NON AF SERBIAN >60 Normal >=60 [facility] Comment on above: Performed By: #### U DINA, LIPID, TSH, BNP, CMP, T7 #### [facility] [address] [place], [place] [address] Dr. Suzie Brooks XR IVPon 07-18-2022 XR IVP EXAMINATION: XR IVP HISTORY: Kidney stone COMPARISON: XR KUB 11/21/2021, CT abdomen pelvis 02/16/2022 TECHNIQUE: After obtaining patient consent a before school babysitter image was obtained followed by injection of [...] BEHZAD CARRASQUILLO Date: 2022-07-18 11:50 Normal [facility] INSULINon 05-16-2022 Insulin 59.0 uIU/mL Critically high 2.6-24.9 [facility] Comment on above: Performed By: #### U DINA, LIPID, TSH, BNP, CMP, T7 #### [facility] [address] [place] [address] Dr. Suzie Brooks BNPon 05-15-2022 Natriuretic peptide B (Bld) [Mass/Vol] 81.0 pg/mL Normal <=900.0 [facility] Comment on above: Performed By: #### U DINA, LIPID, TSH, BNP, CMP, T7 #### [facility] [address] [place] [address] Dr. Suzie Brooks CBC AUTO DIFFon 05-15-2022 BASO # 0.1 103/ul Normal 0.0-0.1 [facility] Comment on above: Performed By: #### C VDTBH #### [facility] [address] [place] [address] Dr. Suzie Brooks Basophils/100 WBC (Bld) 0.6 % Normal 0.2-2.0 [facility] Comment on above: Performed By: #### C VDTBH #### [facility] [address] [place] [address] Dr. Suzie Brooks EO # 0.3 103/ul Normal 0.0-0.7 [facility] Comment on above: Performed By: #### C VDTBH #### [facility] [address] [place] [address] Dr. Suzie Brooks Eosinophils/100 WBC (Bld) 2.9 % Normal 0.9-7.0 [facility] Comment on above: Performed By: #### C VDTBH #### [facility] [address] [place] [address] Dr. Suzie Brooks Erythrocyte distribution width (RBC) [Ratio] 14.1 % Normal 11.0-15.0 [facility] Comment on above: Performed By: #### C VDTBH #### [facility] [address] [place] [address] Dr. Suzie Brooks Hematocrit (Bld) [Volume fraction] 46.7 % Normal 42.0-54.0 [facility] Comment on above: Performed By: #### C VDTBH #### [facility] [address] [place] [address] Dr. Suzie Brooks Hemoglobin (Bld) [Mass/Vol] 15.4 g/dL Normal 14.0-18.0 [facility] Comment on above: Performed By: #### C VDTBH #### [facility] [address] [place] [address] Dr. Suzie Brooks IG # 0.03 10e3/ul Normal 0.00-0.03 [facility] Comment on above: Performed By: #### C VDTBH #### [facility] [address] [place] [address] Dr. Suzie Brooks IG % 0.3 % Normal 0.0-0.5 [facility] Comment on above: Performed By: #### C VDTBH #### [facility] [address] [place] [address] Dr. Suzie Brooks LYMPH # 2.6 103/ul Normal 1.2-3.8 [facility] Comment on above: Performed By: #### C VDTBH #### [facility] [address] [place] [address] Dr. Suzie Brokos Lymphocytes/100 WBC (Bld) 25.1 % Normal 20.5-60.0 [facility] Comment on above: Performed By: #### C VDTBH #### [facility] [address] [place] [address] Dr. Suzie Brooks MANUAL DIFF REQ NO Normal [facility] Comment on above: Performed By: #### C VDTBH #### [facility] [address] [place] [address] Dr. Suzie Brooks MCH (RBC) [Entitic mass] 28.6 pg Normal 25.9-34.0 [facility] Comment on above: Performed By: #### C VDTBH #### [facility] [address] [place] [address] Dr. Suzie Brooks MCHC (RBC) [Mass/Vol] 33.0 g/dL Normal 29.9-35.2 [facility] Comment on above: Performed By: #### C VDTBH #### [facility] [address] [place] [address] Dr. Suzie Brooks MCV (RBC) [Entitic vol] 86.8 fL Normal 80.0-94.0 [facility] Comment on above: Performed By: #### C VDTBH #### [facility] [address] [place] [address] Dr. Suzie Brooks MONO # 0.7 103/ul Normal 0.3-0.8 [facility] Comment on above: Performed By: #### C VDTBH #### [facility] [address] [place] [address] Dr. Suzie Brooks Monocytes/100 WBC (Bld) 6.8 % Normal 1.7-12.0 [facility] Comment on above: Performed By: #### C VDTBH #### [facility] [address] [place] [address] Dr. Suzie Brooks NEUT # 6.5 103/ul Normal 1.4-6.5 [facility] Comment on above: Performed By: #### C VDTBH #### [facility] [address] [place] [address] Dr. Suzie Brooks Neutrophils/100 WBC (Bld) 64.3 % Normal 43.0-75.0 [facility] Comment on above: Performed By: #### C VDTBH #### [facility] [address] [place] [address] Dr. Suzie Brooks Platelet mean volume (Bld) [Entitic vol] 9.5 fL Normal 9.5-13.5 [facility] Comment on above: Performed By: #### C VDTBH #### [facility] [address] [place] [address] Dr. Suzie Brooks PLT 273 103/ul Normal 150-450 [facility] Comment on above: Performed By: #### C VDTBH #### [facility] [address] [place] [address] Dr. Suzie Brooks RBC 5.38 106/ul Normal 4.70-6.10 [facility] Comment on above: Performed By: #### C VDTBH #### [facility] [address] [address] [address] Suzie Brooks WBC 10.2 103/ul Normal 4.0-11.0 [facility] Comment on above: Performed By: #### C VDTBH #### [facility] [address] [address] [address] Suzie Brooks FREE THYROXINE INDEX T7on FTI 2.23 Normal 1.30-4.50 [facility] Comment on above: Performed By: #### U DINA, LIPID, TSH, BNP, CMP, T7 #### [facility] [address] [address] [address] Suzie Brooks T3U 36.0 % Normal 33.0-40.0 [facility] Comment on above: Performed By: #### U DINA, LIPID, TSH, BNP, CMP, T7 #### [facility] [address] [place] [address] Dr. Suzie Brooks T4 [Mass/Vol] 6.20 ug/dL Normal 4.50-12.10 [facility] Comment on above: Performed By: #### U DINA, LIPID, TSH, BNP, CMP, T7 #### [facility] [address] [place] [address] Dr. Suzie Brooks GLYCOHEMOGLOBIN A1Con 2021 ADA RECOMMENDATION SEE BELOW Normal [facility] Comment on above: Result Comment: ADA RECOMMENDED LIMIT 4.0 - 6.0 ADA THERAPEUTIC TARGET < 7.0 ACTION SUGGESTED > 7.0 Performed By: #### U DINA, LIPID, TSH, BNP, CMP, T7 #### [facility] [address] [place] [address] Dr. Suzie Brooks Glucose [Mass/Vol] 111 mg/dL Normal [facility] Comment on above: Performed By: #### U DINA, LIPID, TSH, BNP, CMP, T7 #### [facility] [address] [place] [address] Dr. Suzie Brooks HbA1c (Bld) [Mass fraction] 5.5 % Normal 4.5-6.2 [facility] Comment on above: Performed By: #### U DINA, LIPID, TSH, BNP, CMP, T7 #### [facility] [address] [address] [address] Suzie Brooks LIPID PROFILEon 05-15-2022 CHOL-HDL RATIO NORM SEE BELOW Normal [facility] Comment on above: Result Comment: 3.3 - 4.4 LOW RISK 4.4 - 7.1 AVERAGE RISK 7.1 - 11.0 MODERATE RISK >11.0 HIGH RISK Performed By: #### U DINA, LIPID, TSH, BNP, CMP, T7 #### [facility] [address] [address] [address] Suzie Brooks Cholesterol [Mass/Vol] 136 mg/dL Normal <=200 [facility] Comment on above: Performed By: #### U DINA, LIPID, TSH, BNP, CMP, T7 #### [facility] [address] [address] [address] Suzie Brooks Cholesterol in HDL [Mass/Vol] 34 mg/dL Critically low 40-60 [facility] Comment on above: Performed By: #### U DINA, LIPID, TSH, BNP, CMP, T7 #### [facility] [address] [address] [address] Suzie Brooks Cholesterol in LDL [Mass/Vol] 49.8 mg/dL Normal [facility] Comment on above: Performed By: #### U DINA, LIPID, TSH, BNP, CMP, T7 #### [facility] [address] [address] [address] Suzie Brooks Cholesterol.total/Ch olesterol in HDL [Mass ratio] 4.0 {ratio} Normal [facility] Comment on above: Performed By: #### U DINA, LIPID, TSH, BNP, CMP, T7 #### [facility] [address] [address] [address] Suzie Brooks HDL NORMAL > or = 60 mg/dl - LO W CARDIOVASCULAR RISK <40 mg/dl - HIGH CARDIOVASCULAR RISK Normal [facility] Comment on above: Performed By: #### U DINA, LIPID, TSH, BNP, CMP, T7 #### [facility] [address] [address] [address] Suzie Brooks LDL CALC NORMAL SEE BELOW Normal [facility] Comment on above: Result Comment: <100 mg/dl OPTIMAL 100 - 129 mg/dl NEAR OR ABOVE OPTIMAL 130 - 159 mg/dl BORDERLINE HIGH 160 - 189 mg/dl HIGH >190 mg/dl VERY HIGH Performed By: #### U DINA, LIPID, TSH, BNP, CMP, T7 #### [facility] [address] [address] [address] Suzie Brooks Triglyceride [Mass/Vol] 261 mg/dL Critically high <=150 [facility] Comment on above: Performed By: #### U DINA, LIPID, TSH, BNP, CMP, T7 #### [facility] [address] [address] [address] Suzie Brooks VLDL CALC 52.2 mg/dL Normal [facility] Comment on above: Performed By: #### U DINA, LIPID, TSH, BNP, CMP, T7 #### [facility] [address] [address] [address] Suzie Brooks PROF 14(COMP METB)on 022 Albumin [Mass/Vol] 3.6 g/dL Normal 3.4-5.0 [facility] Comment on above: Performed By: #### U DINA, LIPID, TSH, BNP, CMP, T7 #### [facility] [address] [address] [address] Suzie Brooks Albumin/Globulin [Mass ratio] 0.9 {ratio} Normal [facility] Comment on above: Performed By: #### U DINA, LIPID, TSH, BNP, CMP, T7 #### [facility] [address] [address] [address] Suzie Brooks ALP [Catalytic activity/Vol] 60 U/L Normal 46-116 [facility] Comment on above: Performed By: #### U DINA, LIPID, TSH, BNP, CMP, T7 #### [facility] [address] [address] [address] Suzie Brooks ALT [Catalytic activity/Vol] 36 U/L Normal 16-63 [facility] Comment on above: Performed By: #### U DINA, LIPID, TSH, BNP, CMP, T7 #### [facility] [address] [place] [address] Dr. Suzie Brooks Anion gap [Moles/Vol] 11.7 mmol/L Normal [facility] Comment on above: Performed By: #### U DINA, LIPID, TSH, BNP, CMP, T7 #### [facility] [address] [place] [address] Dr. Suzie Brooks AST [Catalytic activity/Vol] 28 U/L Normal 15-37 [facility] Comment on above: Performed By: #### U DINA, LIPID, TSH, BNP, CMP, T7 #### [facility] [address] [address] [address] Suzie Brooks Bilirubin [Mass/Vol] 0.6 mg/dL Normal 0.2-1.0 [facility] Comment on above: Performed By: #### U DINA, LIPID, TSH, BNP, CMP, T7 #### [facility] [address] [place] [address] Dr. Suzie Brooks Calcium [Mass/Vol] 8.8 mg/dL Normal 8.5-10.1 [facility] Comment on above: Performed By: #### U DINA, LIPID, TSH, BNP, CMP, T7 #### [facility] [address] [place] [address] Dr. Suzie Brooks Chloride [Moles/Vol] 102 mmol/L Normal 98-107 [facility] Comment on above: Performed By: #### U DINA, LIPID, TSH, BNP, CMP, T7 #### [facility] [address] [place] [address] Dr. Suzie Brooks CO2 [Moles/Vol] 27.9 mmol/L Normal 21.0-32.0 [facility] Comment on above: Performed By: #### U DINA, LIPID, TSH, BNP, CMP, T7 #### [facility] [address] [place] [address] Dr. Suzie Brooks Creatinine [Mass/Vol] 0.98 mg/dL Normal 0.70-1.30 [facility] Comment on above: Performed By: #### U DINA, LIPID, TSH, BNP, CMP, T7 #### [facility] [address] [address] [address] Suzie Brooks EGFR-AF SERBIAN >60 Normal >=60 [facility] Comment on above: Performed By: #### U DINA, LIPID, TSH, BNP, CMP, T7 #### [facility] [address] [address] [address] Suzie Brooks EGFR-NON AF SERBIAN >60 Normal >=60 [facility] Comment on above: Performed By: #### U DINA, LIPID, TSH, BNP, CMP, T7 #### [facility] [address] [address] [address] Suzie Brooks Globulin (S) [Mass/Vol] 3.8 g/dL Normal [facility] Comment on above: Performed By: #### U DINA, LIPID, TSH, BNP, CMP, T7 #### [facility] [address] [address] [address] Suzie Brooks Glucose [Mass/Vol] 107 mg/dL Critically high 74-106 [facility] Comment on above: Performed By: #### U DINA, LIPID, TSH, BNP, CMP, T7 #### [facility] [address] [address] [address] Suzie Brooks Potassium [Moles/Vol] 3.6 mmol/L Normal 3.5-5.1 [facility] Comment on above: Performed By: #### U DINA, LIPID, TSH, BNP, CMP, T7 #### [facility] [address] [address] [address] Suzie Brooks Protein [Mass/Vol] 7.4 g/dL Normal 6.4-8.2 [facility] Comment on above: Performed By: #### U DINA, LIPID, TSH, BNP, CMP, T7 #### [facility] [address] [address] [address] Suzie Brooks Sodium [Moles/Vol] 138 mmol/L Normal 136-145 [facility] Comment on above: Performed By: #### U DINA, LIPID, TSH, BNP, CMP, T7 #### [facility] [address] [address] [address] Suzie Brooks Urea nitrogen [Mass/Vol] 12.0 mg/dL Normal 7.0-18.0 The [facility] Comment on above: Performed By: #### U DINA, LIPID, TSH, BNP, CMP, T7 #### [facility] [address] [place] [address] Dr. Suzie Brooks Urea nitrogen/Creatinine [Mass ratio] 12.2 mg/mg Normal [facility] Comment on above: Performed By: #### U DINA, LIPID, TSH, BNP, CMP, T7 #### [facility] [address] [place] [address] Dr. Suzie Brooks TSHon 05-15-2022 TSH 2.356 uIU/mL Normal 0.358-3.740 [facility] Comment on above: Performed By: #### U DINA, LIPID, TSH, BNP, CMP, T7 #### [facility] [address] [place] [address] Dr. Suzie Brooks URIC ACID SERUMon 05-15-2022 Urate [Mass/Vol] 5.2 mg/dL Normal 3.5-7.2 [facility] Comment on above: Performed By: #### U DINA, LIPID, TSH, BNP, CMP, T7 #### [facility] [address] [place] [address] Dr. Suzie Brooks CALCULI, URINARYon 2 2,8 Dihydroxyadenine Normal [facility] Comment on above: Performed By: #### U DINA, LIPID, TSH, BNP, CMP, T7 #### [facility] [address] [place] [address] Dr. Suzie Brooks Ammonium Acid Urate Normal [facility] Comment on above: Performed By: #### U DINA, LIPID, TSH, BNP, CMP, T7 #### [facility] [address] [place] [address] Dr. Suzie Brooks Bilirubin Ql (U) Normal [facility] Comment on above: Performed By: #### U DINA, LIPID, TSH, BNP, CMP, T7 #### [facility] [address] [place] [address] Dr. Suzie Brooks Ca Oxalate Dihydrate Normal [facility] Comment on above: Performed By: #### U DINA, LIPID, TSH, BNP, CMP, T7 #### [facility] [address] [address] [address] Suzie Brooks CaHPO4 (Brushite) Normal [facility] Comment on above: Performed By: #### U DINA, LIPID, TSH, BNP, CMP, T7 #### [facility] [address] [address] [address] Suzie Brooks Calcium Bilirubinate [facility] Comment on above: Performed By: #### U DINA, LIPID, TSH, BNP, CMP, T7 #### [facility] [address] [address] [address] Suzie Brooks Calcium Carbonate [facility] Comment on above: Performed By: #### U DINA, LIPID, TSH, BNP, CMP, T7 #### [facility] [address] [address] [address] Suzie Brooks Calcium Oxalate Monohydrate 70 % [facility] Comment on above: Performed By: #### U DINA, LIPID, TSH, BNP, CMP, T7 #### [facility] [address] [address] [address] Suzie Brooks Calcium Palmitate [facility] Comment on above: Performed By: #### U DINA, LIPID, TSH, BNP, CMP, T7 #### [facility] [address] [address] [address] Suzie Brooks Calcium Phosphate Normal [facility] Comment on above: Performed By: #### U DINA, LIPID, TSH, BNP, CMP, T7 #### [facility] [address] [address] [address] Suzie Brooks Calcium Stearate Normal [facility] Comment on above: Performed By: #### U DINA, LIPID, TSH, BNP, CMP, T7 #### [facility] [address] [address] [address] Suzie Brooks Carbonate Apatite Normal [facility] Comment on above: Performed By: #### U DINA, LIPID, TSH, BNP, CMP, T7 #### [facility] [address] [address] [address] Suzie Brooks Cellular Material Normal [facility] Comment on above: Performed By: #### U DINA, LIPID, TSH, BNP, CMP, T7 #### [facility] [address] [address] [address] Cholesterol [facility] Comment on above: Performed By: #### U DINA, LIPID, TSH, BNP, CMP, T7 #### [facility] [address] [address] [address] Suzie Brooks Color (U) Brown [facility] Comment on above: Performed By: #### U DINA, LIPID, TSH, BNP, CMP, T7 #### [facility] [address] [address] [address] Comment [facility] Comment on above: Performed By: #### U DINA, LIPID, TSH, BNP, CMP, T7 #### [facility] [address] [address] [address] Suzie Brooks Comment Comment [facility] Comment on above: Result Comment: Calc ulus received in liquid. Wet calculi must be dried before analysis, which delays reporting of results. Leaving calculi in liquid (such as water, saline, blood, urine) may lead to changes in composition. Performed By: #### U DINA, LIPID, TSH, BNP, CMP, T7 #### [facility] [address] [address] [address] Suzie Brooks Comment: Comment Normal [facility] Comment on above: Result Comment: Fantasma baez questions regarding Calculi Analysis contact [facility] at: [phone]. Performed By: #### U DINA, LIPID, TSH, BNP, CMP, T7 #### [facility] [address] [address] [address] Suzie Brooks Composition Comment [facility] Comment on above: Result Comment: Perc entage (Represents the % composition) Performed By: #### U DINA, LIPID, TSH, BNP, CMP, T7 #### [facility] [address] [place] [address] Dr. Suzie Brooks Cystine Normal [facility] Comment on above: Performed By: #### U DINA, LIPID, TSH, BNP, CMP, T7 #### [facility] [address] [address] [address] Suzie Brooks Disclaimer: Comment Normal [facility] Comment on above: Result Comment: This test was developed and its performance characteristics determined by [facility]. It has not been cleared or approved by the Food and Drug Administration. Performed By: #### U DINA, LIPID, TSH, BNP, CMP, T7 #### [facility] [address] [address] [address] Suzie Brooks Dried Blood Normal [facility] Comment on above: Performed By: #### U DINA, LIPID, TSH, BNP, CMP, T7 #### [facility] [address] [place] [address] Dr. Suzie Brooks Drug or Metabolite Normal [facility] Comment on above: Performed By: #### U DINA, LIPID, TSH, BNP, CMP, T7 #### [facility] [address] [address] [address] Suzie Brooks Hydroxyapatite Normal [facility] Comment on above: Performed By: #### U DINA, LIPID, TSH, BNP, CMP, T7 #### [facility] [address] [place] [address] Dr. Suzie Brooks Mg NH4 PO4 (Struvite) [facility] Comment on above: Performed By: #### U DINA, LIPID, TSH, BNP, CMP, T7 #### [facility] [address] [address] [address] Suzie Brooks MgHPO4 (Newberyite) Normal [facility] Comment on above: Performed By: #### U DINA, LIPID, TSH, BNP, CMP, T7 #### [facility] [address] [place] [address] Dr. Suzie Brooks Other component(s) Normal [facility] Comment on above: Performed By: #### U DINA, LIPID, TSH, BNP, CMP, T7 #### [facility] [address] [address] [address] Suzie Brooks PDF . Normal [facility] Comment on above: Performed By: #### U DINA, LIPID, TSH, BNP, CMP, T7 #### [facility] [address] [address] [address] Suzie Brooks Photo Comment [facility] Comment on above: Result Comment: Luis prasad will follow under a separate cover Performed By: #### U DINA, LIPID, TSH, BNP, CMP, T7 #### [facility] [address] [address] [address] Suzie Brooks Please note: Comment Normal [facility] Comment on above: Result Comment: Calc shamika report will follow via computer, mail or destination imagination coordinator delivery. Performed By: #### U DINA, LIPID, TSH, BNP, CMP, T7 #### [facility] [address] [address] [address] Suzie Brooks Size 6x4 Normal [facility] Comment on above: Result Comment: Mult iple pieces received. Dimensions of the largest piece reported. Performed By: #### U DINA, LIPID, TSH, BNP, CMP, T7 #### [facility] [address] [address] [address] Suzie Brooks Sodium Acid Urate Normal [facility] Comment on above: Performed By: #### U DINA, LIPID, TSH, BNP, CMP, T7 #### [facility] [address] [address] [address] Suzie Brooks Source Comment [facility] Comment on above: Result Comment: Not provided Performed By: #### U DINA, LIPID, TSH, BNP, CMP, T7 #### [facility] [address] [address] [address] [facility] Comment on above: Performed By: #### U DINA, LIPID, TSH, BNP, CMP, T7 #### [facility] [address] [address] [address] Suzie Brooks Uric Acid 30 % [facility] Comment on above: Performed By: #### U DINA, LIPID, TSH, BNP, CMP, T7 #### [facility] [address] [address] [address] Suzie Brooks Uric Acid Dihydrate Normal [facility] Comment on above: Performed By: #### U DINA, LIPID, TSH, BNP, CMP, T7 #### [facility] [address] [address] [address] Suzie Brooks Weight 99 mg Normal [facility] Comment on above: Performed By: #### U DINA, LIPID, TSH, BNP, CMP, T7 #### [facility] [address] [address] [address] Suzie Brooks Xanthine Normal [facility] Comment on above: Performed By: #### U DINA, LIPID, TSH, BNP, CMP, T7 #### [facility] [address] [place] [address] Dr. Suzie Brooks CBC AUTO DIFFon 02-18-2022 BASO # 0.0 103/ul Normal 0.0-0.1 [facility] Comment on above: Performed By: #### U DINA, LIPID, TSH, BNP, CMP, T7 #### [facility] [address] [place] [address] Dr. Suzie Brooks Basophils/100 WBC (Bld) 0.3 % Normal 0.2-2.0 The [facility] Comment on above: Performed By: #### U DINA, LIPID, TSH, BNP, CMP, T7 #### [facility] [address] [place] [address] Dr. Suzie Brooks EO # 0.3 103/ul Normal 0.0-0.7 The [facility] Comment on above: Performed By: #### U DINA, LIPID, TSH, BNP, CMP, T7 #### [facility] [address] [place] [address] Dr. Suzie Brooks Eosinophils/100 WBC (Bld) 2.3 % Normal 0.9-7.0 The [facility] Comment on above: Performed By: #### U DINA, LIPID, TSH, BNP, CMP, T7 #### [facility] [address] [place] [address] Dr. Suzie Brooks Erythrocyte distribution width (RBC) [Ratio] 14.2 % Normal 11.0-15.0 The [facility] Comment on above: Performed By: #### U DINA, LIPID, TSH, BNP, CMP, T7 #### [facility] [address] [place] [address] Dr. Suzie Brooks Hematocrit (Bld) [Volume fraction] 41.3 % Critically low 42.0-54.0 [facility] Comment on above: Performed By: #### U DINA, LIPID, TSH, BNP, CMP, T7 #### [facility] [address] [address] [address] Suzie Brooks Hemoglobin (Bld) [Mass/Vol] 13.4 g/dL Critically low 14.0-18.0 The [facility] Comment on above: Performed By: #### U DINA, LIPID, TSH, BNP, CMP, T7 #### [facility] [address] [place] [address] Dr. Suzie Brooks IG # 0.03 10e3/ul Normal 0.00-0.03 [facility] Comment on above: Performed By: #### U DINA, LIPID, TSH, BNP, CMP, T7 #### [facility] [address] [place] [address] Dr. Suzie Brooks IG % 0.3 % Normal 0.0-0.5 [facility] Comment on above: Performed By: #### U DINA, LIPID, TSH, BNP, CMP, T7 #### [facility] [address] [place] [address] Dr. Suzie Brooks LYMPH # 2.0 103/ul Normal 1.2-3.8 The [facility] Comment on above: Performed By: #### U DINA, LIPID, TSH, BNP, CMP, T7 #### [facility] [address] [place] [address] Dr. Suzie Brooks Lymphocytes/100 WBC (Bld) 18.0 % Critically low 20.5-60.0 The [facility] Comment on above: Performed By: #### U DINA, LIPID, TSH, BNP, CMP, T7 #### [facility] [address] [place] [address] Dr. Suzie Brooks MANUAL DIFF REQ NO Normal [facility] Comment on above: Performed By: #### U DINA, LIPID, TSH, BNP, CMP, T7 #### [facility] [address] [address] [address] Suzie Brooks MCH (RBC) [Entitic mass] 28.8 pg Normal 25.9-34.0 [facility] Comment on above: Performed By: #### U DINA, LIPID, TSH, BNP, CMP, T7 #### [facility] [address] [place] [address] Dr. Suzie Brooks MCHC (RBC) [Mass/Vol] 32.4 g/dL Normal 29.9-35.2 The [facility] Comment on above: Performed By: #### U DINA, LIPID, TSH, BNP, CMP, T7 #### [facility] [address] [place] [address] Dr. Suzie Brooks MCV (RBC) [Entitic vol] 88.6 fL Normal 80.0-94.0 [facility] Comment on above: Performed By: #### U DINA, LIPID, TSH, BNP, CMP, T7 #### [facility] [address] [place] [address] Dr. Suzie Brooks MONO # 1.0 103/ul Critically high 0.3-0.8 The [facility] Comment on above: Performed By: #### U DINA, LIPID, TSH, BNP, CMP, T7 #### [facility] [address] [place] [address] Dr. Suzie Brooks Monocytes/100 WBC (Bld) 9.2 % Normal 1.7-12.0 The [facility] Comment on above: Performed By: #### U DINA, LIPID, TSH, BNP, CMP, T7 #### [facility] [address] [place] [address] Dr. Suzie Brooks NEUT # 7.9 103/ul Critically high 1.4-6.5 [facility] Comment on above: Performed By: #### U DINA, LIPID, TSH, BNP, CMP, T7 #### [facility] [address] [place] [address] Dr. Suzie Brooks Neutrophils/100 WBC (Bld) 69.9 % Normal 43.0-75.0 The [facility] Comment on above: Performed By: #### U DINA, LIPID, TSH, BNP, CMP, T7 #### [facility] [address] [place] [address] Dr. Suzie Brooks Platelet mean volume (Bld) [Entitic vol] 9.6 fL Normal 9.5-13.5 The [facility] Comment on above: Performed By: #### U DINA, LIPID, TSH, BNP, CMP, T7 #### [facility] [address] [place] [address] Dr. Suzie Brooks PLT 218 103/ul Normal 150-450 [facility] Comment on above: Performed By: #### U DINA, LIPID, TSH, BNP, CMP, T7 #### [facility] [address] [place] [address] Dr. Suzie Brooks RBC 4.66 106/ul Critically low 4.70-6.10 [facility] Comment on above: Performed By: #### U DINA, LIPID, TSH, BNP, CMP, T7 #### [facility] [address] [place] [address] Dr. Suzie Brooks WBC 11.3 103/ul Critically high 4.0-11.0 The [facility] Comment on above: Performed By: #### U DINA, LIPID, TSH, BNP, CMP, T7 #### [facility] [address] [place] [address] Dr. Suzie Brooks CULTURE URINEon 02-18-2022 CULTURE URINE Culture Observations : NO GROWTH. Normal [facility] Comment on above: Performed By: #### M [id number] #### [facility] [address] [place] [address] Dr. Suzie Brooks [facility] SARS-CoV-2 (COVID-19) RNA SUKHJINDER+probe Ql (Unsp spec) Not detected Normal NOT DETECTED [facility] Comment on above: Result Comment: When diagnostic [...] for this test is supported by the [place] of Health and Human Service's declaration that [...] used). Performed By: #### C VDTB #### [facility] [address] [place] [address] Dr. Suzie Brooks PROF 14(COMP METB)on 022 Albumin [Mass/Vol] 3.0 g/dL Critically low 3.4-5.0 Th [facility] Comment on above: Performed By: #### O [id number] #### [facility] [address] [place] [address] Dr. Suzie Brooks Albumin/Globulin [Mass ratio] 0.9 {ratio} Normal [facility] Comment on above: Performed By: #### O [id number] #### [facility] [address] [place] [address] Dr. Suzie Brooks ALP [Catalytic activity/Vol] 49 U/L Normal 46-116 [facility] Comment on above: Performed By: #### O [id number] #### [facility] [address] [place] [address] Dr. Suzie Brooks ALT [Catalytic activity/Vol] 35 U/L Normal 16-63 [facility] Comment on above: Performed By: #### O X24HR #### [facility] [address] [place] [address] Dr. Suzie Brooks Anion gap [Moles/Vol] 11.8 mmol/L Normal [facility] Comment on above: Performed By: #### O X24HR #### [facility] [address] [place] [address] Dr. Suzie Brooks AST [Catalytic activity/Vol] 27 U/L Normal 15-37 [facility] Comment on above: Performed By: #### O X24HR #### [facility] [address] [place] [address] Dr. Suzie Brooks Bilirubin [Mass/Vol] 0.4 mg/dL Normal 0.2-1.0 [facility] Comment on above: Performed By: #### O X24HR #### [facility] [address] [place] [address] Dr. Suzie Brooks Calcium [Mass/Vol] 7.6 mg/dL Critically low 8.5-10.1 Th e [facility] Comment on above: Performed By: #### O X24HR #### [facility] [address] [place] [address] Dr. Suzie Brooks Chloride [Moles/Vol] 106 mmol/L Normal 98-107 [facility] Comment on above: Performed By: #### O X24HR #### [facility] [address] [place] [address] Dr. Suzie Brooks CO2 [Moles/Vol] 26.2 mmol/L Normal 21.0-32.0 [facility] Comment on above: Performed By: #### O X24HR #### [facility] [address] [place] [address] Dr. Suzie Brooks Creatinine [Mass/Vol] 1.08 mg/dL Normal 0.70-1.30 [facility] Comment on above: Performed By: #### O X24HR #### [facility] [address] [place] [address] Dr. Suzie Brooks EGFR-AF SERBIAN >60 Normal >=60 [facility] Comment on above: Performed By: #### O X24HR #### [facility] [address] [place] [address] Dr. Suzie Brooks EGFR-NON AF SERBIAN >60 Normal >=60 [facility] Comment on above: Performed By: #### O X24HR #### [facility] [address] [place] [address] Dr. Suzie Brooks Globulin (S) [Mass/Vol] 3.2 g/dL Normal [facility] Comment on above: Performed By: #### O X24HR #### [facility] [address] [place] [address] Dr. Suzie Brooks Glucose [Mass/Vol] 107 mg/dL Critically high 74-106 T [facility] Comment on above: Performed By: #### O X24HR #### [facility] [address] [place] [address] Dr. Suzie Brooks Potassium [Moles/Vol] 4.0 mmol/L Normal 3.5-5.1 [facility] Comment on above: Performed By: #### O X24HR #### [facility] [address] [place] [address] Dr. Suzie Brooks Protein [Mass/Vol] 6.2 g/dL Critically low 6.4-8.2 Th [facility] Comment on above: Performed By: #### O X24HR #### [facility] [address] [place] [address] Dr. Suzie Brooks Sodium [Moles/Vol] 140 mmol/L Normal 136-145 [facility] Comment on above: Performed By: #### O X24HR #### [facility] [address] [place] [address] Dr. Suzie Brooks Urea nitrogen [Mass/Vol] 14.0 mg/dL Normal 7.0-18.0 [facility] Comment on above: Performed By: #### O [id number] #### [facility] [address] [place] [address] Dr. Suzie Brooks Urea nitrogen/Creatinine [Mass ratio] 13.0 mg/mg Normal [facility] Comment on above: Performed By: #### O [id number] #### [facility] [address] [place] [address] Dr. Suzie Brooks CBC AUTO DIFFon 02-17-2022 BASO # 0.1 103/ul Normal 0.0-0.1 [facility] Comment on above: Performed By: #### M AG24 #### [facility] [address] [place] [address] Dr. Suzie Brooks Basophils/100 WBC (Bld) 0.4 % Normal 0.2-2.0 [facility] Comment on above: Performed By: #### M AG24 #### [facility] [address] [place] [address] Dr. Suzie Brooks EO # 0.3 103/ul Normal 0.0-0.7 [facility] Comment on above: Performed By: #### M AG24 #### [facility] [address] [place] [address] Dr. Suzie Brooks Eosinophils/100 WBC (Bld) 2.3 % Normal 0.9-7.0 [facility] Comment on above: Performed By: #### M AG24 #### [facility] [address] [place] [address] Dr. Suzie Brooks Erythrocyte distribution width (RBC) [Ratio] 13.8 % Normal 11.0-15.0 [facility] Comment on above: Performed By: #### M AG24 #### [facility] [address] [place] [address] Dr. Suzie Brooks Hematocrit (Bld) [Volume fraction] 45.2 % Normal 42.0-54.0 [facility] Comment on above: Performed By: #### M AG24 #### [facility] [address] [place] [address] Dr. Suzie Brooks Hemoglobin (Bld) [Mass/Vol] 14.9 g/dL Normal 14.0-18.0 [facility] Comment on above: Performed By: #### M AG24 #### [facility] [address] [place] [address] Dr. Suzie Brooks IG # 0.05 10e3/ul Critically high 0.00-0.03 [facility] Comment on above: Performed By: #### M AG24 #### [facility] [address] [place] [address] Dr. Suzie Brooks IG % 0.4 % Normal 0.0-0.5 [facility] Comment on above: Performed By: #### M AG24 #### [facility] [address] [address] [address] Suzie Brooks LYMPH # 2.5 103/ul Normal 1.2-3.8 [facility] Comment on above: Performed By: #### M AG24 #### [facility] [address] [place] [address] Dr. Suzie Brooks Lymphocytes/100 WBC (Bld) 17.3 % Critically low 20.5-60.0 [facility] Comment on above: Performed By: #### M AG24 #### [facility] [address] [place] [address] Dr. Suzie Brooks MANUAL DIFF REQ NO Normal [facility] Comment on above: Performed By: #### M AG24 #### [facility] [address] [place] [address] Dr. Suzie Brooks MCH (RBC) [Entitic mass] 28.7 pg Normal 25.9-34.0 [facility] Comment on above: Performed By: #### M AG24 #### [facility] [address] [place] [address] Dr. Suzie Brooks MCHC (RBC) [Mass/Vol] 33.0 g/dL Normal 29.9-35.2 [facility] Comment on above: Performed By: #### M AG24 #### [facility] [address] [place] [address] Dr. Suzie Brooks MCV (RBC) [Entitic vol] 87.1 fL Normal 80.0-94.0 [facility] Comment on above: Performed By: #### M AG24 #### [facility] [address] [place] [address] Dr. Suzie Brooks MONO # 1.0 103/ul Critically high 0.3-0.8 [facility] Comment on above: Performed By: #### M AG24 #### [facility] [address] [place] [address] Dr. Suzie Brooks Monocytes/100 WBC (Bld) 6.8 % Normal 1.7-12.0 [facility] Comment on above: Performed By: #### M AG24 #### [facility] [address] [place] [address] Dr. Suzie Brooks NEUT # 10.3 103/ul Critically high 1.4-6.5 [facility] Comment on above: Performed By: #### M AG24 #### [facility] [address] [place] [address] Dr. Suzie Brooks Neutrophils/100 WBC (Bld) 72.8 % Normal 43.0-75.0 [facility] Comment on above: Performed By: #### M AG24 #### [facility] [address] [place] [address] Dr. Suzie Brooks Platelet mean volume (Bld) [Entitic vol] 9.7 fL Normal 9.5-13.5 [facility] Comment on above: Performed By: #### M AG24 #### [facility] [address] [place] [address] Dr. Suzie Brooks PLT 253 103/ul Normal 150-450 [facility] Comment on above: Performed By: #### M AG24 #### [facility] [address] [place] [address] Dr. Suzie Brooks RBC 5.19 106/ul Normal 4.70-6.10 [facility] Comment on above: Performed By: #### M AG24 #### [facility] [address] [place] [address] Dr. Suzie Brooks WBC 14.2 103/ul Critically high 4.0-11.0 [facility] Comment on above: Performed By: #### M AG24 #### [facility] [address] [place] [address] Dr. Suzie Brooks CULTURE BLOODon 02-17-2022 Microscopic examination of blood, culture Culture Observations: NO GROWTH AT 5 DAYS. Normal [facility] Comment on above: Performed By: #### M AG24 #### [facility] [address] [place] [address] Dr. Suzie Brooks Microscopic examination of blood, culture Culture Observations: NO GROWTH AT 5 DAYS. Normal [facility] Comment on above: Performed By: #### M AG24 #### [facility] [address] [place] [address] Dr. Suzie Brooks ER URINE PROFILEon 2 Bilirubin Ql (U) Negative Normal NEGATIVE [facility] Comment on above: Performed By: #### E RUR #### [facility] [address] [place] [address] Dr. Suzie Brooks Clarity (U) CLEAR Normal CLEAR [facility] Comment on above: Performed By: #### E RUR #### [facility] [address] [place] [address] Dr. Suzie Brooks Color (U) DK. YELLOW Normal YELLOW [facility] Comment on above: Performed By: #### E RUR #### [facility] [address] [place] [address] Dr. Suzie NICOLED A micrscopic examina tion will be performed if indicated. Normal [facility] Comment on above: Performed By: #### E RUR #### [facility] [address] [place] [address] Dr. Suzie Brooks Glucose Ql (U) Negative Normal NEGATIVE [facility] Comment on above: Performed By: #### E RUR #### [facility] [address] [place] [address] Dr. Suzie Brooks Hemoglobin Ql (U) Negative Normal NEGATIVE [facility] Comment on above: Performed By: #### E RUR #### [facility] [address] [place] [address] Dr. Suzie Brooks Ketones Ql (U) Negative Normal NEGATIVE [facility] Comment on above: Performed By: #### E RUR #### [facility] [address] [place] [address] Dr. Suzie Brooks LEUKOCYTES Negative Normal NEGATIVE [facility] Comment on above: Performed By: #### E RUR #### [facility] [address] [place] [address] Dr. Suzie Brooks Nitrite Ql (U) Negative Normal NEGATIVE [facility] Comment on above: Performed By: #### E RUR #### [facility] [address] [place] [address] Dr. Suzie Brooks pH (U) 5.0 [pH] Normal 5-9 [facility] Comment on above: Performed By: #### E RUR #### [facility] [address] [place] [address] Dr. Suzie Brooks SPEC GRAVITY >=1.030 Abnormal 1.005-<=1.02 5 [facility] Comment on above: Performed By: #### E RUR #### [facility] [address] [place] [address] Dr. Suzie Brooks UA PROTEIN Negative Normal NEGATIVE/ TRACE [facility] Comment on above: Performed By: #### E RUR #### [facility] [address] [place] [address] Dr. Suzie Brooks UR MICRO IND NOT INDICATED Normal [facility] Comment on above: Performed By: #### E RUR #### [facility] [address] [place] [address] Dr. Suzie Brooks Urobilinogen Qn (U) 0.2 {Behzad'U}/dL Normal 0.2 - 1. 0 [facility] Comment on above: Performed By: #### E RUR #### [facility] [address] [place] [address] Dr. Suzie Brooks LACTATE/LACTIC ACIDon 2021 Lactate [Moles/Vol] 1.4 mmol/L Normal 0.4-1.9 [facility] Comment on above: Performed By: #### U DINA, LIPID, TSH, BNP, CMP, T7 #### [facility] [address] [place] [address] Dr. Suzie Brooks PROF CHEM 8 (BAS METB)on Anion gap [Moles/Vol] 12.2 mmol/L Normal [facility] Comment on above: Performed By: #### U DINA, LIPID, TSH, BNP, CMP, T7 #### [facility] [address] [place] [address] Dr. Suzie Brooks Calcium [Mass/Vol] 8.1 mg/dL Critically low 8.5-10.1 [facility] Comment on above: Performed By: #### U DINA, LIPID, TSH, BNP, CMP, T7 #### [facility] [address] [address] [address] Suzie Brooks Chloride [Moles/Vol] 103 mmol/L Normal 98-107 [facility] Comment on above: Performed By: #### U DINA, LIPID, TSH, BNP, CMP, T7 #### [facility] [address] [address] [address] Suzie Brooks CO2 [Moles/Vol] 26.1 mmol/L Normal 21.0-32.0 [facility] Comment on above: Performed By: #### U DINA, LIPID, TSH, BNP, CMP, T7 #### [facility] [address] [address] [address] Suzie Brooks Creatinine [Mass/Vol] 1.06 mg/dL Normal 0.70-1.30 [facility] Comment on above: Performed By: #### U DINA, LIPID, TSH, BNP, CMP, T7 #### [facility] [address] [address] [address] Suzie Brooks EGFR-AF SERBIAN >60 Normal >=60 [facility] Comment on above: Performed By: #### U DINA, LIPID, TSH, BNP, CMP, T7 #### [facility] [address] [address] [address] Suzie Brooks EGFR-NON AF SERBIAN >60 Normal >=60 [facility] Comment on above: Performed By: #### U DINA, LIPID, TSH, BNP, CMP, T7 #### [facility] [address] [address] [address] Suzie Brooks Glucose [Mass/Vol] 138 mg/dL Critically high 74-106 T [facility] Comment on above: Performed By: #### U DINA, LIPID, TSH, BNP, CMP, T7 #### [facility] [address] [address] [address] Suize Brooks Potassium [Moles/Vol] 4.3 mmol/L Normal 3.5-5.1 [facility] Comment on above: Performed By: #### U DINA, LIPID, TSH, BNP, CMP, T7 #### [facility] [address] [place] [address] Dr. Suzie Brooks Sodium [Moles/Vol] 137 mmol/L Normal 136-145 [facility] Comment on above: Performed By: #### U DINA, LIPID, TSH, BNP, CMP, T7 #### [facility] [address] [address] [address] Suzie Brooks Urea nitrogen [Mass/Vol] 14.0 mg/dL Normal 7.0-18.0 [facility] Comment on above: Performed By: #### U DINA, LIPID, TSH, BNP, CMP, T7 #### [facility] [address] [place] [address] Dr. Suzie Brooks Urea nitrogen/Creatinine [Mass ratio] 13.2 mg/mg Normal [facility] Comment on above: Performed By: #### U DINA, LIPID, TSH, BNP, CMP, T7 #### [facility] [address] [place] [address] Dr. Suzie Brooks TROPONIN, HIGH SENSITIVITYon 02-17-2022 HSTROP 8.4 pg/mL Normal 4.0-76.1 [facility] Comment on above: Result Comment: CUT- OFF POINTS HAVE BEEN ESTABLISHED BASED ON THE FOURTH UNIVERSAL DEFINITIONS OF MYOCARDIAL INFARCTION. THE UPPER REFERENCE LIMIT (URL) OF TROPONIN, DEFINED THE 99TH PERCENTILE OF cTnI DISTRIBUTION IN A REFERENCE POPULATION, HAS BEEN CONFIRMED THE DECISION THRESHOLD FOR DC DIAGNOSIS. Performed By: #### U DINA, LIPID, TSH, BNP, CMP, T7 #### [facility] [address] [place] [address] Dr. Suzie Brooks CBC AUTO DIFFon 02-16-2022 BASO # 0.1 103/ul Normal 0.0-0.1 [facility] Comment on above: Performed By: #### U DINA, LIPID, TSH, BNP, CMP, T7 #### [facility] [address] [place] [address] Dr. Suzie Brooks Basophils/100 WBC (Bld) 0.4 % Normal 0.2-2.0 [facility] Comment on above: Performed By: #### U DINA, LIPID, TSH, BNP, CMP, T7 #### [facility] [address] [place] [address] Dr. Suzie Brooks EO # 0.3 103/ul Normal 0.0-0.7 [facility] Comment on above: Performed By: #### U DINA, LIPID, TSH, BNP, CMP, T7 #### [facility] [address] [place] [address] Dr. Suzie Brooks Eosinophils/100 WBC (Bld) 2.5 % Normal 0.9-7.0 [facility] Comment on above: Performed By: #### U DINA, LIPID, TSH, BNP, CMP, T7 #### [facility] [address] [place] [address] Dr. Suzie Brooks Erythrocyte distribution width (RBC) [Ratio] 13.9 % Normal 11.0-15.0 [facility] Comment on above: Performed By: #### U DINA, LIPID, TSH, BNP, CMP, T7 #### [facility] [address] [place] [address] Dr. Suzie Brooks Hematocrit (Bld) [Volume fraction] 46.6 % Normal 42.0-54.0 [facility] Comment on above: Performed By: #### U DINA, LIPID, TSH, BNP, CMP, T7 #### [facility] [address] [place] [address] Dr. Suzie Brooks Hemoglobin (Bld) [Mass/Vol] 15.7 g/dL Normal 14.0-18.0 [facility] Comment on above: Performed By: #### U DINA, LIPID, TSH, BNP, CMP, T7 #### [facility] [address] [place] [address] Dr. Suzie Brooks IG # 0.05 10e3/ul Critically high 0.00-0.03 [facility] Comment on above: Performed By: #### U DINA, LIPID, TSH, BNP, CMP, T7 #### [facility] [address] [place] [address] Dr. Suzie Brooks IG % 0.4 % Normal 0.0-0.5 [facility] Comment on above: Performed By: #### U DINA, LIPID, TSH, BNP, CMP, T7 #### [facility] [address] [address] [address] Suzie Brooks LYMPH # 3.7 103/ul Normal 1.2-3.8 [facility] Comment on above: Performed By: #### U DINA, LIPID, TSH, BNP, CMP, T7 #### [facility] [address] [place] [address] Dr. Suzie Brooks Lymphocytes/100 WBC (Bld) 26.6 % Normal 20.5-60.0 [facility] Comment on above: Performed By: #### U DINA, LIPID, TSH, BNP, CMP, T7 #### [facility] [address] [address] [address] Suzie Brooks MANUAL DIFF REQ NO Normal [facility] Comment on above: Performed By: #### U DINA, LIPID, TSH, BNP, CMP, T7 #### [facility] [address] [place] [address] Dr. Suzie Brooks MCH (RBC) [Entitic mass] 29.2 pg Normal 25.9-34.0 [facility] Comment on above: Performed By: #### U DINA, LIPID, TSH, BNP, CMP, T7 #### [facility] [address] [place] [address] Dr. Suzie Brooks MCHC (RBC) [Mass/Vol] 33.7 g/dL Normal 29.9-35.2 [facility] Comment on above: Performed By: #### U DINA, LIPID, TSH, BNP, CMP, T7 #### [facility] [address] [place] [address] Dr. Suzie Brooks MCV (RBC) [Entitic vol] 86.6 fL Normal 80.0-94.0 [facility] Comment on above: Performed By: #### U DINA, LIPID, TSH, BNP, CMP, T7 #### [facility] [address] [place] [address] Dr. Suzie Brooks MONO # 1.0 103/ul Critically high 0.3-0.8 [facility] Comment on above: Performed By: #### U DINA, LIPID, TSH, BNP, CMP, T7 #### [facility] [address] [address] [address] Suzie Brooks Monocytes/100 WBC (Bld) 7.2 % Normal 1.7-12.0 [facility] Comment on above: Performed By: #### U DIAN, LIPID, TSH, BNP, CMP, T7 #### [facility] [address] [address] [address] Suzie Brooks NEUT # 8.7 103/ul Critically high 1.4-6.5 [facility] Comment on above: Performed By: #### U DINA, LIPID, TSH, BNP, CMP, T7 #### [facility] [address] [address] [address] Suzie Brooks Neutrophils/100 WBC (Bld) 62.9 % Normal 43.0-75.0 [facility] Comment on above: Performed By: #### U DINA, LIPID, TSH, BNP, CMP, T7 #### [facility] [address] [place] [address] Dr. Suzie Brooks Platelet mean volume (Bld) [Entitic vol] 9.4 fL Critically low 9.5-13.5 [facility] Comment on above: Performed By: #### U DINA, LIPID, TSH, BNP, CMP, T7 #### [facility] [address] [place] [address] Dr. Suzie Brooks PLT 277 103/ul Normal 150-450 [facility] Comment on above: Performed By: #### U DINA, LIPID, TSH, BNP, CMP, T7 #### [facility] [address] [address] [address] Suzie Brooks RBC 5.38 106/ul Normal 4.70-6.10 [facility] Comment on above: Performed By: #### U DINA, LIPID, TSH, BNP, CMP, T7 #### [facility] [address] [place] [address] Dr. Suzie Brooks WBC 13.8 103/ul Critically high 4.0-11.0 [facility] Comment on above: Performed By: #### U DINA, LIPID, TSH, BNP, CMP, T7 #### [facility] [address] [place], [place] [address] ABD/PELVIS WO CONon [...] ALEKSANDRA CAST Date: 2022-02-16 20:51 Normal [facility] URINE PROFILEon 2 Bilirubin Ql (U) Negative Normal NEGATIVE [facility] Comment on above: Performed By: #### U DINA, LIPID, TSH, BNP, CMP, T7 #### [facility] [address] [address] [address] Suzie Brooks Clarity (U) CLEAR Normal CLEAR [facility] Comment on above: Performed By: #### U DINA, LIPID, TSH, BNP, CMP, T7 #### [facility] [address] [address] [address] Suzie Brooks Color (U) YELLOW Normal YELLOW [facility] Comment on above: Performed By: #### U DINA, LIPID, TSH, BNP, CMP, T7 #### [facility] [address] [place] [address] Dr. Suzie Brooks ERUAHD A micrscopic examina tion will be performed if indicated. Normal [facility] Comment on above: Performed By: #### U DINA, LIPID, TSH, BNP, CMP, T7 #### [facility] [address] [address] [address] Suzie Brooks Glucose Ql (U) Negative Normal NEGATIVE [facility] Comment on above: Performed By: #### U DINA, LIPID, TSH, BNP, CMP, T7 #### [facility] [address] [place] [address] Dr. Suzie Brooks Hemoglobin Ql (U) MODERATE Abnormal NEGATIVE [facility] Comment on above: Performed By: #### U DINA, LIPID, TSH, BNP, CMP, T7 #### [facility] [address] [address] [address] Suzie Brooks Ketones Ql (U) Negative Normal NEGATIVE [facility] Comment on above: Performed By: #### U DINA, LIPID, TSH, BNP, CMP, T7 #### [facility] [address] [address] [address] Suzie Brooks LEUKOCYTES Negative Normal NEGATIVE [facility] Comment on above: Performed By: #### U DINA, LIPID, TSH, BNP, CMP, T7 #### [facility] [address] [address] [address] Suzie Brooks Nitrite Ql (U) Negative Normal NEGATIVE [facility] Comment on above: Performed By: #### U DINA, LIPID, TSH, BNP, CMP, T7 #### [facility] [address] [place] [address] Dr. Suzie Brooks pH (U) 5.5 [pH] Normal 5-9 [facility] Comment on above: Performed By: #### U DINA, LIPID, TSH, BNP, CMP, T7 #### [facility] [address] [place] [address] Dr. Suzie Brooks SPEC GRAVITY >=1.030 Abnormal 1.005-<=1.02 5 [facility] Comment on above: Performed By: #### U DINA, LIPID, TSH, BNP, CMP, T7 #### [facility] [address] [place] [address] Dr. Suzie Brooks UA PROTEIN Negative Normal NEGATIVE/ TRACE [facility] Comment on above: Performed By: #### U DINA, LIPID, TSH, BNP, CMP, T7 #### [facility] [address] [place] [address] Dr. Suzie Brooks UR MICRO IND INDICATED Normal [facility] Comment on above: Performed By: #### U DINA, LIPID, TSH, BNP, CMP, T7 #### [facility] [address] [place] [address] Dr. Suzie Brooks Urobilinogen Qn (U) 0.2 {Behzad'U}/dL Normal 0.2 - 1. 0 [facility] Comment on above: Performed By: #### U DINA, LIPID, TSH, BNP, CMP, T7 #### [facility] [address] [place] [address] Dr. Suzie Brooks PROF CHEM 8 (BAS METB)on Anion gap [Moles/Vol] 12.2 mmol/L Normal [facility] [facility] Comment on above: Performed By: #### U DINA, LIPID, TSH, BNP, CMP, T7 #### [facility] [address] [address] [address] Suzie Brooks Calcium [Mass/Vol] 8.5 mg/dL Normal 8.5-10.1 [facility] Comment on above: Performed By: #### U DINA, LIPID, TSH, BNP, CMP, T7 #### [facility] [address] [address] [address] Suzie Brooks Chloride [Moles/Vol] 104 mmol/L Normal 98-107 [facility] Comment on above: Performed By: #### U DINA, LIPID, TSH, BNP, CMP, T7 #### [facility] [address] [address] [address] Suzie Brooks CO2 [Moles/Vol] 24.1 mmol/L Normal 21.0-32.0 [facility] Comment on above: Performed By: #### U DINA, LIPID, TSH, BNP, CMP, T7 #### [facility] [address] [place] [address] Dr. Suzie Brooks Creatinine [Mass/Vol] 1.14 mg/dL Normal 0.70-1.30 [facility] Comment on above: Performed By: #### U DINA, LIPID, TSH, BNP, CMP, T7 #### [facility] [address] [place] [address] Dr. Suzie Brooks EGFR-AF SERBIAN >60 Normal >=60 [facility] Comment on above: Performed By: #### U DINA, LIPID, TSH, BNP, CMP, T7 #### [facility] [address] [place] [address] Dr. Suzie Brooks EGFR-NON AF SERBIAN >60 Normal >=60 [facility] Comment on above: Performed By: #### U DINA, LIPID, TSH, BNP, CMP, T7 #### [facility] [address] [place] [address] Dr. Suzie Brooks Glucose [Mass/Vol] 114 mg/dL Critically high 74-106 T [facility] Comment on above: Performed By: #### U DINA, LIPID, TSH, BNP, CMP, T7 #### [facility] [address] [address] [address] Suzie Brooks Potassium [Moles/Vol] 4.3 mmol/L Normal 3.5-5.1 [facility] Comment on above: Performed By: #### U DINA, LIPID, TSH, BNP, CMP, T7 #### [facility] [address] [address] [address] Suzie Brooks Sodium [Moles/Vol] 136 mmol/L Normal 136-145 [facility] Comment on above: Performed By: #### U DINA, LIPID, TSH, BNP, CMP, T7 #### [facility] [address] [place] [address] Dr. Suzie Brooks Urea nitrogen [Mass/Vol] 14.0 mg/dL Normal 7.0-18.0 [facility] Comment on above: Performed By: #### U DINA, LIPID, TSH, BNP, CMP, T7 #### [facility] [address] [place] [address] Dr. Suzie Brooks Urea nitrogen/Creatinine [Mass ratio] 12.3 mg/mg Normal [facility] Comment on above: Performed By: #### U DINA, LIPID, TSH, BNP, CMP, T7 #### [facility] [address] [place] [address] Dr. Suzie Brooks URINE MICROSCOPIC ONLYon BACTERIA NONE SEEN Normal NONE SEEN [facility] Comment on above: Performed By: #### U DINA, LIPID, TSH, BNP, CMP, T7 #### [facility] [address] [place] [address] Dr. Suzie Brooks Bacteria identified Cx Nom (U) NOT INDICATED Normal [facility] Comment on above: Performed By: #### U DINA, LIPID, TSH, BNP, CMP, T7 #### [facility] [address] [place] [address] Dr. Suzie Brooks CAST NONE SEEN Normal NONE SEEN [facility] Comment on above: Performed By: #### U DINA, LIPID, TSH, BNP, CMP, T7 #### [facility] [address] [place] [address] Dr. Suzie Brooks Crystals LM Nom (Urine sed) NONE SEEN Normal NONE SEEN [facility] Comment on above: Performed By: #### U DINA, LIPID, TSH, BNP, CMP, T7 #### [facility] [address] [address] [address] Suzie Brooks Epithelial cells LM Ql (Urine sed) RARE Normal NONE SEEN /RARE [facility] Comment on above: Performed By: #### U DINA, LIPID, TSH, BNP, CMP, T7 #### [facility] [address] [address] [address] Suzie Brooks MUCOUS NONE SEEN Normal NONE SEEN [facility] Comment on above: Performed By: #### U DINA, LIPID, TSH, BNP, CMP, T7 #### [facility] [address] [address] [address] Suzie Brooks RBC 5-10 Abnormal 0-2 [facility] Comment on above: Performed By: #### U DINA, LIPID, TSH, BNP, CMP, T7 #### [facility] [address] [address] [address] Suzie Brooks WBC NONE SEEN Normal NONE SEEN [facility] Comment on above: Performed By: #### U DINA, LIPID, TSH, BNP, CMP, T7 #### [facility] [address] [address] [address] Suzie Brooks CITRATE URINE 24HRon 022 Citric Acid, U, 24hr 1312 mg/24 hr Critically high 320-124 0 [facility] Comment on above: Result Comment: This test was developed and its performance characteristics determined by [facility]. It has not been cleared or approved by the Food and Drug Administration. Performed By: #### U DIAN, LIPID, TSH, BNP, CMP, T7 #### [facility] [address] [address] [address] Suzie Brooks Citric Acid, Urine 610 mg/L Normal Undefined [facility] Comment on above: Performed By: #### U DINA, LIPID, TSH, BNP, CMP, T7 #### [facility] [address] [address] [address] Suzie Brooks OXALATE 24HR URINEon 022 Oxalates, Urine 11 mg/L Normal Undefined [facility] Comment on above: Performed By: #### O X24HR #### [facility] [address] [place] [address] Dr. Suzie Brooks Oxalates, Urine 24hr 24 mg/24 hr Normal 7-44 [facility] Comment on above: Performed By: #### O X24HR #### [facility] [address] [place] [address] Dr. Suzie Brooks MAGNESIUM 24HR URINEon 02-02 Magnesium 24hr Urine 77.4 mg/24 hr Normal 12.0-293.0 T [facility] Comment on above: Performed By: #### M AG24 #### [facility] [address] [place] [address] Dr. Suzie Brooks Magnesium UR 3.6 mg/dL Normal Not Estab. [facility] Comment on above: Performed By: #### M AG24 #### [facility] [address] [place] [address] Dr. Suzie Brooks PHOSPHORUS 24HR URINEon 01-10 Phosphorus, Urine 44.1 mg/dL Normal Not Estab. [facility] Comment on above: Performed By: #### U DINA, LIPID, TSH, BNP, CMP, T7 #### [facility] [address] [place] [address] Dr. Suzie Brooks Phosphorus, Urine 24hr 948 mg/24 hr Normal 390-1425 [facility] Comment on above: Performed By: #### U DINA, LIPID, TSH, BNP, CMP, T7 #### [facility] [address] [place] [address] Dr. Suzie Brooks URIC ACID 24 HR URINEon 01-10 Uric Acid, Urine 35.4 mg/dL Normal Not Estab. The [facility] Comment on above: Performed By: #### U DINA, LIPID, TSH, BNP, CMP, T7 #### [facility] [address] [place] [address] Dr. Suzie Brooks Uric Acid, Urine 24hr 761.1 mg/24 hr Normal 182.4-936.8 [facility] Comment on above: Performed By: #### U DINA, LIPID, TSH, BNP, CMP, T7 #### [facility] [address] [address] [address] Suzie Brooks CALCIUM 24 HR URINEon 2021 CALC, 24 HR UR 187.0 mg/24 hr Normal 100.0-300.0 [facility] Comment on above: Performed By: #### U DINA, LIPID, TSH, BNP, CMP, T7 #### [facility] [address] [place] [address] Dr. Suzie Brooks UR CALCIUM 8.7 mg/dL Normal 5.1-21.0 [facility] Comment on above: Performed By: #### U DINA, LIPID, TSH, BNP, CMP, T7 #### [facility] [address] [place] [address] Dr. Suzie Brooks UR TOT VOL 2150 ml/24 HR Normal [facility] Comment on above: Performed By: #### U DINA, LIPID, TSH, BNP, CMP, T7 #### [facility] [address] [place] [address] Dr. Suzie Brooks CREA 24 HR URINEon 2 CREA, 24 HR UR 1983.59 mg/24 hr Normal 1,000.00- 2,0 00.00 [facility] Comment on above: Performed By: #### U DINA, LIPID, TSH, BNP, CMP, T7 #### [facility] [address] [place] [address] Dr. Suzie Brooks URINE CREAT 92.26 mg/dL Normal 20.00-300.00 [facility] Comment on above: Performed By: #### U DINA, LIPID, TSH, BNP, CMP, T7 #### [facility] [address] [place] [address] Dr. Suzie Brooks SODIUM 24 HR URINEon 2 022 NA, 24 HR UR 172 mmol/24 hr Normal 40-220 [facility] Comment on above: Performed By: #### U DINA, LIPID, TSH, BNP, CMP, T7 #### [facility] [address] [place] [address] Dr. Suzie Brooks Sodium (U) [Moles/Vol] 80 mmol/L Normal 30-90 [facility] Comment on above: Performed By: #### U DINA, LIPID, TSH, BNP, CMP, T7 #### [facility] [address] [place] [address] Dr. Suzie Brooks PTH INTACTon 01-31-2022 PTH, Intact 24 pg/mL Normal 15-65 [facility] Comment on above: Performed By: #### U DINA, LIPID, TSH, BNP, CMP, T7 #### [facility] [address] [place] [address] Dr. Suzie Brooks BUNon 01-30-2022 Urea nitrogen [Mass/Vol] 12.0 mg/dL Normal 7.0-18.0 [facility] Comment on above: Performed By: #### U DINA, LIPID, TSH, BNP, CMP, T7 #### [facility] [address] [place] [address] Dr. Suzie Brooks CALCIUMon 01-30-2022 Calcium [Mass/Vol] 8.6 mg/dL Normal 8.5-10.1 [facility] Comment on above: Performed By: #### U DINA, LIPID, TSH, BNP, CMP, T7 #### [facility] [address] [place] [address] Dr. Suzie Brooks CHLORIDEon 01-30-2022 Chloride [Moles/Vol] 104 mmol/L Normal 98-107 [facility] Comment on above: Performed By: #### U DINA, LIPID, TSH, BNP, CMP, T7 #### [facility] [address] [place] [address] Dr. Suzie Brooks CO2on 01-30-2022 CO2 [Moles/Vol] 29.3 mmol/L Normal 21.0-32.0 [facility] Comment on above: Performed By: #### U DINA, LIPID, TSH, BNP, CMP, T7 #### [facility] [address] [place] [address] Dr. Suzie Brooks CREATININEon 01-30-2022 Creatinine [Mass/Vol] 0.92 mg/dL Normal 0.70-1.30 [facility] Comment on above: Performed By: #### U DINA, LIPID, TSH, BNP, CMP, T7 #### [facility] [address] [address] [address] Suzie Brooks EGFR-AF SERBIAN >60 Normal >=60 [facility] Comment on above: Performed By: #### U DINA, LIPID, TSH, BNP, CMP, T7 #### [facility] [address] [address] [address] Suzie Brooks EGFR-NON AF SERBIAN >60 Normal >=60 [facility] Comment on above: Performed By: #### U DINA, LIPID, TSH, BNP, CMP, T7 #### [facility] [address] [address] [address] Suzie Brooks NAon 01-30-2022 Sodium [Moles/Vol] 140 mmol/L Normal 136-145 [facility] Comment on above: Performed By: #### U DINA, LIPID, TSH, BNP, CMP, T7 #### [facility] [address] [address] [address] Suzie Brooks POTASSIUMon 01-30-2022 Potassium [Moles/Vol] 4.0 mmol/L Normal 3.5-5.1 [facility] Comment on above: Performed By: #### U DINA, LIPID, TSH, BNP, CMP, T7 #### [facility] [address] [address] [address] Suzie Brooks URIC ACID SERUMon 01-30-2022 Urate [Mass/Vol] 5.2 mg/dL Normal 3.5-7.2 [facility] Comment on above: Performed By: #### U DINA, LIPID, TSH, BNP, CMP, T7 #### [facility] [id number] Suzie Brooks US KIDNEYSon 12-18-2021 US [...] by: BEHZAD CARRASQUILLO Date: 2021-12-18 09:51 Normal [facility] XR KUB 1 VIEWon 11-21-2021 XR KUB [...] by: BEHZAD CARRASQUILLO Date: 2021-11-21 09:45 Normal [facility] XR KUBon 11-15-2021 XR KUB [facility] [place] [address] [place] [address] XRay Report Signed Patient: Tom Aparicio MR#: [id number] 4 : 1950 Acct:[id number] Age/Sex: 71 / M ADM Date: 11/15/21 Loc: [place] Room: Type: [facility] Attending Dr: Miki Zeng MD Ordering Provider: [...] Hancock Jr., M.D.11/15/2021 10:43 AM Dictation Location: [address] [address] Transcribed By: [facility] 11/15/21 1043 Dictated By: Yared Hancock Jr, MD 11/15/21 1039 Signed By: 11/15/21 [address] [facility] SARS-CoV-2 (COVID-19) RNA SUKHJINDER+probe Ql (Unsp spec) Negative Normal Negative 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. This test has not been FDA [...] is terminated or revoked sooner. PERFORMED BY: [facility] [place] [address] PATHOLOGIST COMMUNICATIONS ENGINEER JIA MINAYA M.D. Performed By: #### C OVID 19 [facility] #### [facility] [address] COVID-19 Positive/NegativeOr dered By: Miki Zeng on 11-13-2021 SARS-CoV-2 (COVID-19) N gene SUKHJINDER+probe Ql (Resp) Negative Negative [facility] Comment on above: Testing for SARS-CoV -2 by RT-PCRThis test was developed and its performance characteristics determined by [employer] ([employer]) and validated at the [facility]. This test has not been FDA [...] sooner. CALCULI, URINARYon 2 2,8 Dihydroxyadenine Normal [facility] Comment on above: Performed By: #### U DINA, LIPID, TSH, BNP, CMP, T7 #### [facility] [address] [address] [address] Suzie Brooks Ammonium Acid Urate Normal [facility] Comment on above: Performed By: #### U DINA, LIPID, TSH, BNP, CMP, T7 #### [facility] [address] [address] [address] Suzie Brooks Bilirubin Ql (U) Normal [facility] Comment on above: Performed By: #### U DINA, LIPID, TSH, BNP, CMP, T7 #### [facility] [address] [address] [address] Suzie Brooks Ca Oxalate Dihydrate Normal [facility] Comment on above: Performed By: #### U DINA, LIPID, TSH, BNP, CMP, T7 #### [facility] [address] [address] [address] Suzie Brooks CaHPO4 (Brushite) Normal [facility] Comment on above: Performed By: #### U DINA, LIPID, TSH, BNP, CMP, T7 #### [facility] [address] [address] [address] Suzie Brooks Calcium Bilirubinate Normal [facility] Comment on above: Performed By: #### U DINA, LIPID, TSH, BNP, CMP, T7 #### [facility] [address] [address] [address] Suzie Brooks Calcium Carbonate Normal [facility] Comment on above: Performed By: #### U DINA, LIPID, TSH, BNP, CMP, T7 #### [facility] [address] [address] [address] Suzie Brooks Calcium Oxalate Monohydrate 70 % Normal [facility] Comment on above: Performed By: #### U DINA, LIPID, TSH, BNP, CMP, T7 #### [facility] [address] [address] [address] Suzie Brooks Calcium Palmitate Normal [facility] Comment on above: Performed By: #### U DINA, LIPID, TSH, BNP, CMP, T7 #### [facility] [address] [address] [address] Suzie Brooks Calcium Phosphate Normal [facility] Comment on above: Performed By: #### U DINA, LIPID, TSH, BNP, CMP, T7 #### [facility] [address] [address] [address] Suzie Brooks Calcium Stearate Normal [facility] Comment on above: Performed By: #### U DINA, LIPID, TSH, BNP, CMP, T7 #### [facility] [address] [address] [address] Suzie Brooks Carbonate Apatite Normal [facility] Comment on above: Performed By: #### U DINA, LIPID, TSH, BNP, CMP, T7 #### [facility] [address] [address] [address] Suzie Brooks Cellular Material Normal [facility] Comment on above: Performed By: #### U DINA, LIPID, TSH, BNP, CMP, T7 #### [facility] [address] [address] [address]olesterol [facility] Comment on above: Performed By: #### U DINA, LIPID, TSH, BNP, CMP, T7 #### [facility] [address] [address] [address] Suzie Brooks Color (U) Brown Normal [facility] Comment on above: Performed By: #### U DINA, LIPID, TSH, BNP, CMP, T7 #### [facility] [address] [address] [address] Comment [facility] Comment on above: Performed By: #### U DINA, LIPID, TSH, BNP, CMP, T7 #### [facility] [address] [address] [address] Suzie Brooks Comment: Comment Normal [facility] Comment on above: Result Comment: Fantasma baez questions regarding Calculi Analysis contact [facility] at: [phone]. Performed By: #### U DINA, LIPID, TSH, BNP, CMP, T7 #### [facility] [address] [place] [address] Dr. Suzie Brooks Composition Comment [facility] Comment on above: Result Comment: Perc entage (Represents the % composition) Performed By: #### U DINA, LIPID, TSH, BNP, CMP, T7 #### [facility] [address] [address] [address] C[address] [facility] Comment on above: Performed By: #### U DINA, LIPID, TSH, BNP, CMP, T7 #### [facility] [address] [address] [address] Suzie Brooks Disclaimer: Comment [facility] Comment on above: Result Comment: This test was developed and its performance characteristics determined by [facility]. It has not been cleared or approved by the Food and Drug Administration. Performed By: #### U DINA, LIPID, TSH, BNP, CMP, T7 #### [facility] [address] [address] [address] Suzie Brooks Dried Blood Normal [facility] Comment on above: Performed By: #### U DINA, LIPID, TSH, BNP, CMP, T7 #### [facility] [address] [address] [address] Suzie Brooks Drug or Metabolite Normal [facility] Comment on above: Performed By: #### U DINA, LIPID, TSH, BNP, CMP, T7 #### [facility] [address] [address] [address] Suzie Brooks Hydroxyapatite Normal [facility] Comment on above: Performed By: #### U DINA, LIPID, TSH, BNP, CMP, T7 #### [facility] [address] [address] [address] Suzie Brooks Mg NH4 PO4 (Struvite) Normal [facility] Comment on above: Performed By: #### U DINA, LIPID, TSH, BNP, CMP, T7 #### [facility] [address] [address] [address] Suzie Brooks MgHPO4 (Newberyite) Normal [facility] Comment on above: Performed By: #### U DINA, LIPID, TSH, BNP, CMP, T7 #### [facility] [address] [address] [address] Suzie Brooks Other component(s) Normal [facility] Comment on above: Performed By: #### U DINA, LIPID, TSH, BNP, CMP, T7 #### [facility] [address] [address] [address] Suzie Brooks PDF . Normal [facility] Comment on above: Performed By: #### U DINA, LIPID, TSH, BNP, CMP, T7 #### [facility] [address] [address] [address] Suzie Brooks Photo Comment [facility] Comment on above: Result Comment: Phot ograph will follow under a separate cover Performed By: #### U DINA, LIPID, TSH, BNP, CMP, T7 #### [facility] [address] [address] [address] Suzie Brooks Please note: Comment Normal [facility] Comment on above: Result Comment: Calc shamika report will follow via computer, mail or destination imagination coordinator delivery. Performed By: #### U DINA, LIPID, TSH, BNP, CMP, T7 #### [facility] [address] [address] [address] Suzie Brooks Size 3x2 Normal [facility] Comment on above: Result Comment: Mult iple pieces received. Dimensions of the largest piece reported. Performed By: #### U DINA, LIPID, TSH, BNP, CMP, T7 #### [facility] [address] [address] [address] Suzie Brooks Sodium Acid Urate Normal [facility] Comment on above: Performed By: #### U DINA, LIPID, TSH, BNP, CMP, T7 #### [facility] [address] [address] [address] Suzie Brooks Source Comment [facility] Comment on above: Result Comment: Rigceci t Ureter Performed By: #### U DINA, LIPID, TSH, BNP, CMP, T7 #### [facility] [address] [address] [address] [facility] Comment on above: Performed By: #### U DINA, LIPID, TSH, BNP, CMP, T7 #### [facility] [address] [address] [address] Suzie Brooks Uric Acid 30 % [facility] Comment on above: Performed By: #### U DINA, LIPID, TSH, BNP, CMP, T7 #### [facility] [address] [address] [address] Suzie Brooks Uric Acid Dihydrate Normal [facility] Comment on above: Performed By: #### U DINA, LIPID, TSH, BNP, CMP, T7 #### [facility] [address] [address] [address] Suzie Brooks Weight 12 mg Normal [facility] Comment on above: Performed By: #### U DINA, LIPID, TSH, BNP, CMP, T7 #### [facility] Laboratory [address] [address] [address] Suzie Brooks Xanthine Normal [facility] Comment on above: Performed By: #### U DINA, LIPID, TSH, BNP, CMP, T7 #### [facility] Laboratory [address] [place] [address] Dr. Suzie Brooks XR KUB 1 VIEWon [...] by: RAFAEL GRAVES Date: 2021-11-12 13:18 Normal [facility] XR CHEST 2 Von 11-08-2021 XR CHEST [...] by: CARLOS GROSS Date: 2021-11-08 15:50 Normal [facility] CBC AUTO DIFFon 11-07-2021 BASO # 0.0 103/ul Normal 0.0-0.1 [facility] Comment on above: Performed By: #### U DINA, LIPID, TSH, BNP, CMP, T7 #### [facility] Laboratory [address] [address] [address] Suzie Brooks Basophils/100 WBC (Bld) 0.2 % Normal 0.2-2.0 [facility] Comment on above: Performed By: #### U DINA, LIPID, TSH, BNP, CMP, T7 #### [facility] Laboratory [address] [address] [address] Suzie Brooks EO # 0.0 103/ul Normal 0.0-0.7 [facility] Comment on above: Performed By: #### U DINA, LIPID, TSH, BNP, CMP, T7 #### [facility] Laboratory [address] [address] [address] Suzie Brooks Eosinophils/100 WBC (Bld) 0.0 % Critically low 0.9-7.0 [facility] Comment on above: Performed By: #### U DINA, LIPID, TSH, BNP, CMP, T7 #### [facility] Laboratory [address] [address] [address] Suzie Brooks Erythrocyte distribution width (RBC) [Ratio] 14.0 % Normal 11.0-15.0 [facility] Comment on above: Performed By: #### U DINA, LIPID, TSH, BNP, CMP, T7 #### [facility] Laboratory [address] [place] [address] Dr. Suzie Brooks Hematocrit (Bld) [Volume fraction] 41.8 % Critically low 42.0-54.0 [facility] Comment on above: Performed By: #### U DINA, LIPID, TSH, BNP, CMP, T7 #### [facility] Laboratory [address] [address] [address] Suzie Brooks Hemoglobin (Bld) [Mass/Vol] 13.7 g/dL Critically low 14.0-18.0 [facility] Comment on above: Performed By: #### U DINA, LIPID, TSH, BNP, CMP, T7 #### [facility] Laboratory [address] [place] [address] Dr. Suzie Brooks IG # 0.14 10e3/ul Critically high 0.00-0.03 [facility] Comment on above: Performed By: #### U DINA, LIPID, TSH, BNP, CMP, T7 #### [facility] Laboratory [address] [address] [address] Suzie Brooks IG % 0.9 % Critically high 0.0-0.5 [facility] Comment on above: Performed By: #### U DINA, LIPID, TSH, BNP, CMP, T7 #### [facility] Laboratory [address] [place] [address] Dr. Suzie Brooks LYMPH # 1.6 103/ul Normal 1.2-3.8 [facility] Comment on above: Performed By: #### U DINA, LIPID, TSH, BNP, CMP, T7 #### [facility] Laboratory [address] [place] [address] Dr. Suzie Brooks Lymphocytes/100 WBC (Bld) 10.2 % Critically low 20.5-60.0 [facility] Comment on above: Performed By: #### U DINA, LIPID, TSH, BNP, CMP, T7 #### [facility] Laboratory [address] [place] [address] Dr. Suzie Brooks MANUAL DIFF REQ NO Normal [facility] Comment on above: Performed By: #### U DINA, LIPID, TSH, BNP, CMP, T7 #### [facility] Laboratory [address] [place] [address] Dr. Suzie Brooks MCH (RBC) [Entitic mass] 28.8 pg Normal 25.9-34.0 [facility] Comment on above: Performed By: #### U DINA, LIPID, TSH, BNP, CMP, T7 #### [facility] Laboratory [address] [place] [address] Dr. Suzie Brooks MCHC (RBC) [Mass/Vol] 32.8 g/dL Normal 29.9-35.2 [facility] Comment on above: Performed By: #### U DINA, LIPID, TSH, BNP, CMP, T7 #### [facility] [address] [place] [address] Dr. Suzie Brooks MCV (RBC) [Entitic vol] 87.8 fL Normal 80.0-94.0 [facility] Comment on above: Performed By: #### U DINA, LIPID, TSH, BNP, CMP, T7 #### [facility] Laboratory [address] [place] [address] Dr. Suzie Brooks MONO # 1.0 103/ul Critically high 0.3-0.8 [facility] Comment on above: Performed By: #### U DINA, LIPID, TSH, BNP, CMP, T7 #### [facility] [address] [address] [address] Suzie Brooks Monocytes/100 WBC (Bld) 6.6 % Normal 1.7-12.0 [facility] Comment on above: Performed By: #### U DINA, LIPID, TSH, BNP, CMP, T7 #### [facility] [address] [address] [address] Suzie Brooks NEUT # 13.0 103/ul Critically high 1.4-6.5 [facility] Comment on above: Performed By: #### U DINA, LIPID, TSH, BNP, CMP, T7 #### [facility] [address] [place] [address] Dr. Suzie Brooks Neutrophils/100 WBC (Bld) 82.1 % Critically high 43.0-75.0 [facility] Comment on above: Performed By: #### U DINA, LIPID, TSH, BNP, CMP, T7 #### [facility] [address] [place] [address] Dr. Suzie Brooks Platelet mean volume (Bld) [Entitic vol] 9.3 fL Critically low 9.5-13.5 [facility] Comment on above: Performed By: #### U DINA, LIPID, TSH, BNP, CMP, T7 #### [facility] [address] [place] [address] Dr. Suzie Brooks PLT 301 103/ul Normal 150-450 [facility] Comment on above: Performed By: #### U DINA, LIPID, TSH, BNP, CMP, T7 #### [facility] Laboratory [address] [place] [address] Dr. Suzie Brooks RBC 4.76 106/ul Normal 4.70-6.10 [facility] Comment on above: Performed By: #### U DINA, LIPID, TSH, BNP, CMP, T7 #### [facility] Laboratory [address] [place] [address] Dr. Suzie Brooks WBC 15.9 103/ul Critically high 4.0-11.0 [facility] Comment on above: Performed By: #### U DINA, LIPID, TSH, BNP, CMP, T7 #### [facility] Laboratory [address] [place] [address] Dr. Suzie Brooks POINT OF CARE GLUCOSEon 10-11 Glucose [Mass/Vol] 128 mg/dL Critically high 74-106 T [facility] Comment on above: Performed By: #### U DINA, LIPID, TSH, BNP, CMP, T7 #### [facility] Laboratory [address] [place] [address] Dr. Suzie Brooks PROF 14(COMP METB)on 022 Albumin [Mass/Vol] 3.1 g/dL Critically low 3.4-5.0 [facility] Comment on above: Performed By: #### M AG24 #### [facility] [address] [place] [address] Dr. Suzie Brooks Albumin/Globulin [Mass ratio] 0.9 {ratio} Normal [facility] Comment on above: Performed By: #### M AG24 #### [facility] [address] [place] [address] Dr. Suzie Brooks ALP [Catalytic activity/Vol] 52 U/L Normal 46-116 [facility] Comment on above: Performed By: #### M AG24 #### [facility] [address] [place] [address] Dr. Suzie Brooks ALT [Catalytic activity/Vol] 39 U/L Normal 16-63 [facility] Comment on above: Performed By: #### M AG24 #### [facility] [address] [place] [address] Dr. Suzie Brooks Anion gap [Moles/Vol] 14.7 mmol/L Normal [facility] Comment on above: Performed By: #### M AG24 #### [facility] [address] [place] [address] Dr. Suzie Brooks AST [Catalytic activity/Vol] 27 U/L Normal 15-37 [facility] Comment on above: Performed By: #### M AG24 #### [facility] [address] [place] [address] Dr. Suzie Brooks Bilirubin [Mass/Vol] 0.4 mg/dL Normal 0.2-1.3 [facility] Comment on above: Performed By: #### M AG24 #### [facility] [address] [place] [address] Dr. Suzie Brooks Calcium [Mass/Vol] 7.7 mg/dL Critically low 8.5-10.1 Th e [facility] Comment on above: Performed By: #### M AG24 #### [facility] [address] [place] [address] Dr. Suzie Brooks Chloride [Moles/Vol] 104 mmol/L Normal 98-107 [facility] Comment on above: Performed By: #### M AG24 #### [facility] [address] [place] [address] Dr. Suzie Brooks CO2 [Moles/Vol] 23.4 mmol/L Normal 22.0-30.0 [facility] Comment on above: Performed By: #### M AG24 #### [facility] [address] [place] [address] Dr. Suzie Brooks Creatinine [Mass/Vol] 1.03 mg/dL Normal 0.66-1.25 [facility] Comment on above: Performed By: #### M AG24 #### [facility] [address] [place] [address] Dr. Suzie Brooks EGFR-AF SERBIAN >60 Normal >=60 [facility] Comment on above: Performed By: #### M AG24 #### [facility] [address] [place] [address] Dr. Suzie Brooks EGFR-NON AF SERBIAN >60 Normal >=60 [facility] Comment on above: Performed By: #### M AG24 #### [facility] [address] [place] [address] Dr. Suzie Brooks Globulin (S) [Mass/Vol] 3.5 g/dL Normal [facility] Comment on above: Performed By: #### M AG24 #### [facility] [address] [place] [address] Dr. Suzie Brooks Glucose [Mass/Vol] 142 mg/dL Critically high 74-106 T [facility] Comment on above: Performed By: #### M AG24 #### [facility] [address] [place] [address] Dr. Suzie Brooks Potassium [Moles/Vol] 4.1 mmol/L Normal 3.4-5.0 [facility] Comment on above: Performed By: #### M AG24 #### [facility] [address] [place] [address] Dr. Suzie Brooks Protein [Mass/Vol] 6.6 g/dL Normal 6.1-8.2 [facility] Comment on above: Performed By: #### M AG24 #### [facility] [address] [place] [address] Dr. Suzie Brooks Sodium [Moles/Vol] 138 mmol/L Normal 137-145 [facility] Comment on above: Performed By: #### M AG24 #### [facility] [address] [place] [address] Dr. Suzie Brooks Urea nitrogen [Mass/Vol] 15.0 mg/dL Normal 7.0-18.0 [facility] Comment on above: Performed By: #### M AG24 #### [facility] [address] [place] [address] Dr. Suzie Brooks Urea nitrogen/Creatinine [Mass ratio] 14.6 mg/mg Normal [facility] Comment on above: Performed By: #### M AG24 #### [facility] Laboratory [address] [place] [address] Dr. Suzie Brooks CBC AUTO DIFFon 11-06-2021 BASO # 0.1 103/ul Normal 0.0-0.1 [facility] Comment on above: Performed By: #### U DINA, LIPID, TSH, BNP, CMP, T7 #### [facility] [address] [place] [address] Dr. Suzie Brooks Basophils/100 WBC (Bld) 0.5 % Normal 0.2-2.0 [facility] Comment on above: Performed By: #### U DINA, LIPID, TSH, BNP, CMP, T7 #### [facility] [address] [place] [address] Dr. Suzie Brooks EO # 0.3 103/ul Normal 0.0-0.7 [facility] Comment on above: Performed By: #### U DINA, LIPID, TSH, BNP, CMP, T7 #### [facility] [address] [place] [address] Dr. Suzie Brooks Eosinophils/100 WBC (Bld) 2.1 % Normal 0.9-7.0 [facility] Comment on above: Performed By: #### U DINA, LIPID, TSH, BNP, CMP, T7 #### [facility] Laboratory [address] [place] [address] Dr. Suzie Brooks Erythrocyte distribution width (RBC) [Ratio] 13.8 % Normal 11.0-15.0 [facility] Comment on above: Performed By: #### U DINA, LIPID, TSH, BNP, CMP, T7 #### [facility] Laboratory [address] [place] [address] Dr. Suzie Brooks Hematocrit (Bld) [Volume fraction] 46.9 % Normal 42.0-54.0 [facility] Comment on above: Performed By: #### U DINA, LIPID, TSH, BNP, CMP, T7 #### [facility] [address] [place] [address] Dr. Suzie Brooks Hemoglobin (Bld) [Mass/Vol] 15.4 g/dL Normal 14.0-18.0 [facility] Comment on above: Performed By: #### U DINA, LIPID, TSH, BNP, CMP, T7 #### [facility] Laboratory [address] [place] [address] Dr. Suzie Brooks IG # 0.05 10e3/ul Critically high 0.00-0.03 [facility] Comment on above: Performed By: #### U DINA, LIPID, TSH, BNP, CMP, T7 #### [facility] [address] [place] [address] Dr. Suzie Brooks IG % 0.4 % Normal 0.0-0.5 [facility] Comment on above: Performed By: #### U DNIA, LIPID, TSH, BNP, CMP, T7 #### [facility] Laboratory [address] [place] [address] Dr. Suzie Brooks LYMPH # 2.8 103/ul Normal 1.2-3.8 [facility] Comment on above: Performed By: #### U DINA, LIPID, TSH, BNP, CMP, T7 #### [facility] Laboratory [address] [address] [address] Suzie Brooks Lymphocytes/100 WBC (Bld) 22.5 % Normal 20.5-60.0 [facility] Comment on above: Performed By: #### U DINA, LIPID, TSH, BNP, CMP, T7 #### [facility] [address] [place] [address] Dr. Suzie Brooks MANUAL DIFF REQ NO Normal [facility] Comment on above: Performed By: #### U DINA, LIPID, TSH, BNP, CMP, T7 #### [facility] Laboratory [address] [place] [address] Dr. Suzie Brooks MCH (RBC) [Entitic mass] 28.6 pg Normal 25.9-34.0 [facility] Comment on above: Performed By: #### U DINA, LIPID, TSH, BNP, CMP, T7 #### [facility] Laboratory [address] [place] [address] Dr. Suzie Brooks MCHC (RBC) [Mass/Vol] 32.8 g/dL Normal 29.9-35.2 [facility] Comment on above: Performed By: #### U DINA, LIPID, TSH, BNP, CMP, T7 #### [facility] [address] [place] [address] Dr. Suzie Brooks MCV (RBC) [Entitic vol] 87.0 fL Normal 80.0-94.0 [facility] Comment on above: Performed By: #### U DINA, LIPID, TSH, BNP, CMP, T7 #### [facility] [address] [place] [address] Dr. Suzie Brooks MONO # 0.9 103/ul Critically high 0.3-0.8 [facility] Comment on above: Performed By: #### U DINA, LIPID, TSH, BNP, CMP, T7 #### [facility] [address] [place] [address] Dr. Suzie Brooks Monocytes/100 WBC (Bld) 6.9 % Normal 1.7-12.0 [facility] Comment on above: Performed By: #### U DINA, LIPID, TSH, BNP, CMP, T7 #### [facility] [address] [address] [address] Suzie Brooks NEUT # 8.4 103/ul Critically high 1.4-6.5 [facility] Comment on above: Performed By: #### U DINA, LIPID, TSH, BNP, CMP, T7 #### [facility] [address] [address] [address] Suzie Brooks Neutrophils/100 WBC (Bld) 67.6 % Normal 43.0-75.0 [facility] Comment on above: Performed By: #### U DINA, LIPID, TSH, BNP, CMP, T7 #### [facility] [address] [address] [address] Suzie Brooks Platelet mean volume (Bld) [Entitic vol] 9.6 fL Normal 9.5-13.5 [facility] Comment on above: Performed By: #### U DINA, LIPID, TSH, BNP, CMP, T7 #### [facility] [address] [address] [address] Suzie Brooks PLT 284 103/ul Normal 150-450 [facility] Comment on above: Performed By: #### U DINA, LIPID, TSH, BNP, CMP, T7 #### [facility] [address] [address] [address] Suzie Brooks RBC 5.39 106/ul Normal 4.70-6.10 [facility] Comment on above: Performed By: #### U DINA, LIPID, TSH, BNP, CMP, T7 #### [facility] [address] [address] [address] Suzie Brooks WBC 12.5 103/ul Critically high 4.0-11.0 [facility] Comment on above: Performed By: #### U DINA, LIPID, TSH, BNP, CMP, T7 #### [facility] [address] [address] [address] Suzie Brooks CULTURE BLOODon 11-06-2021 Microscopic examination of blood, culture Culture Observations: NO GROWTH AT 5 DAYS. Normal [facility] Comment on above: Performed By: #### M AG24 #### [facility] [address] [place] [address] Dr. Suzie Brooks CULTURE URINEon 11-06-2021 CULTURE URINE Culture Observations : NO GROWTH. Normal [facility] Comment on above: Performed By: #### M AG24 #### [facility] [address] [address] [address] Suzie Brooks Covid-19 PCR (CVDTB)on 10-10 SARS-CoV-2 (COVID-19) RNA SUKHJINDER+probe Ql (Unsp spec) Not detected Normal NOT DETECTED [facility] Comment on above: Result Comment: When diagnostic testing is negative, the possibility of a false negative should be considered in the context of a patient's recent exposures and the presence of clinical signs and symptoms consistent with SARS-CoV-2. This test is not yet approved or cleared by the [place] Food and Drug Administration (FDA). This test was developed by [employer] [place], [place]. The performance characteristics of this test were validated by [facility]. The results are not intended to be used as the sole means for clinical diagnosis or patient management decisions. [facility] is authorized under Clinical Laboratory Improvement Amendments [...] for this test is supported by the Quality Director of Health and Human Service's declaration that [...] DINA, LIPID, TSH, BNP, CMP, T7 #### [facility] [address] [place] [address] Dr. Suzie Brooks ER URINE PROFILEon 2 Bilirubin Ql (U) Negative Normal NEGATIVE [facility] Comment on above: Performed By: #### U DINA, LIPID, TSH, BNP, CMP, T7 #### [facility] [address] [place] [address] Dr. Suzie Brooks Clarity (U) CLEAR Normal CLEAR [facility] Comment on above: Performed By: #### U DINA, LIPID, TSH, BNP, CMP, T7 #### [facility] [address] [place] [address] Dr. Suzie Brooks Color (U) YELLOW Normal YELLOW [facility] Comment on above: Performed By: #### U DINA, LIPID, TSH, BNP, CMP, T7 #### [facility] [address] [place] [address] Dr. Suzie Brooks ERURIP A micrscopic examina tion will be performed if indicated. Normal [facility] Comment on above: Performed By: #### U DINA, LIPID, TSH, BNP, CMP, T7 #### [facility] [address] [place] [address] Dr. Suzie Brooks Glucose Ql (U) Negative Normal NEGATIVE [facility] Comment on above: Performed By: #### U DINA, LIPID, TSH, BNP, CMP, T7 #### [facility] [address] [place] [address] Dr. Suzie Brooks Hemoglobin Ql (U) LARGE Abnormal NEGATIVE [facility] Comment on above: Performed By: #### U DINA, LIPID, TSH, BNP, CMP, T7 #### [facility] [address] [place] [address] Dr. Suzie Brooks Ketones Ql (U) Negative Normal NEGATIVE [facility] Comment on above: Performed By: #### U DINA, LIPID, TSH, BNP, CMP, T7 #### [facility] [address] [place] [address] Dr. Suzie Brooks LEUKOCYTES TRACE Abnormal NEGATIVE [facility] Comment on above: Performed By: #### U DINA, LIPID, TSH, BNP, CMP, T7 #### [facility] [address] [place], [place] [id number] Dr. Suzie Brooks Nitrite Ql (U) Negative Normal NEGATIVE [facility] Comment on above: Performed By: #### U DINA, LIPID, TSH, BNP, CMP, T7 #### [facility] [address] [place] [address] Dr. Suzie Brooks pH (U) 5.0 [pH] Normal 5-9 [facility] Comment on above: Performed By: #### U DINA, LIPID, TSH, BNP, CMP, T7 #### [facility] [address] [place] [address] Dr. Suzie Brooks Protein (U) [Mass/Vol] 100 mg/dL Abnormal NEGATIVE/ TRACE [facility] Comment on above: Performed By: #### U DINA, LIPID, TSH, BNP, CMP, T7 #### [facility] [address] [place] [address] Dr. Suzie Brooks SPEC GRAVITY 1.030 Abnormal 1.005-<=1.02 5 [facility] Comment on above: Performed By: #### U DINA, LIPID, TSH, BNP, CMP, T7 #### [facility] [address] [place] [address] Dr. Suzie Brooks UR MICRO IND INDICATED Normal [facility] Comment on above: Performed By: #### U DINA, LIPID, TSH, BNP, CMP, T7 #### [facility] [address] [place] [address] Dr. Suzie Brooks Urobilinogen Qn (U) 0.2 {Behzad'U}/dL Normal 0.2 - 1. 0 [facility] Comment on above: Performed By: #### U DINA, LIPID, TSH, BNP, CMP, T7 #### [facility] [address] [place] [address] Dr. Suzie Brooks LACTATE/LACTIC ACIDon 2021 Lactate [Moles/Vol] 1.0 mmol/L Normal 0.7-2.0 [facility] Comment on above: Performed By: #### U DINA, LIPID, TSH, BNP, CMP, T7 #### [facility] [address] [place] [address] Dr. Suzie Brooks PROF 14(COMP METB)on 022 Albumin [Mass/Vol] 3.8 g/dL Normal 3.4-5.0 [facility] Comment on above: Performed By: #### U DINA, LIPID, TSH, BNP, CMP, T7 #### [facility] [address] [place] [address] Dr. Suzie Brooks Albumin/Globulin [Mass ratio] 1.0 {ratio} Normal [facility] Comment on above: Performed By: #### U DINA, LIPID, TSH, BNP, CMP, T7 #### [facility] [address] [place] [address] Dr. Suzie Brooks ALP [Catalytic activity/Vol] 66 U/L Normal 46-116 [facility] Comment on above: Performed By: #### U DINA, LIPID, TSH, BNP, CMP, T7 #### [facility] [address] [place] [address] Dr. Suzie Brooks ALT [Catalytic activity/Vol] 52 U/L Normal 16-63 [facility] Comment on above: Performed By: #### U DINA, LIPID, TSH, BNP, CMP, T7 #### [facility] [address] [address] [address] Suzie Brooks Anion gap [Moles/Vol] 14.7 mmol/L Normal [facility] Comment on above: Performed By: #### U DINA, LIPID, TSH, BNP, CMP, T7 #### [facility] [address] [place] [address] Dr. Suzie Brooks AST [Catalytic activity/Vol] 40 U/L Critically high 15-37 [facility] Comment on above: Performed By: #### U DINA, LIPID, TSH, BNP, CMP, T7 #### [facility] [address] [place] [address] Dr. Suzie Brooks Bilirubin [Mass/Vol] 0.6 mg/dL Normal 0.2-1.3 [facility] Comment on above: Performed By: #### U DINA, LIPID, TSH, BNP, CMP, T7 #### [facility] [address] [place] [address] Dr. Suzie Brooks Calcium [Mass/Vol] 8.2 mg/dL Critically low 8.5-10.1 Th e [facility] Comment on above: Performed By: #### U DINA, LIPID, TSH, BNP, CMP, T7 #### [facility] [address] [address] [address] Suzie Brooks Chloride [Moles/Vol] 102 mmol/L Normal 98-107 [facility] Comment on above: Performed By: #### U DINA, LIPID, TSH, BNP, CMP, T7 #### [facility] [address] [address] [address] Suzie Brooks CO2 [Moles/Vol] 27.4 mmol/L Normal 22.0-30.0 [facility] Comment on above: Performed By: #### U DINA, LIPID, TSH, BNP, CMP, T7 #### [facility] [address] [address] [address] Suzie Brooks Creatinine [Mass/Vol] 1.05 mg/dL Normal 0.66-1.25 [facility] Comment on above: Performed By: #### U DINA, LIPID, TSH, BNP, CMP, T7 #### [facility] [address] [address] [address] Suzie Brooks EGFR-AF SERBIAN >60 Normal >=60 [facility] Comment on above: Performed By: #### U DINA, LIPID, TSH, BNP, CMP, T7 #### [facility] [address] [address] [address] Suzie Brooks EGFR-NON AF SERBIAN >60 Normal >=60 [facility] Comment on above: Performed By: #### U DINA, LIPID, TSH, BNP, CMP, T7 #### [facility] [address] [address] [address] Suzie Brooks Globulin (S) [Mass/Vol] 3.7 g/dL Normal [facility] Comment on above: Performed By: #### U DINA, LIPID, TSH, BNP, CMP, T7 #### [facility] [address] [address] [address] Suzie Brooks Glucose [Mass/Vol] 124 mg/dL Critically high 74-106 T [facility] Comment on above: Performed By: #### U DINA, LIPID, TSH, BNP, CMP, T7 #### [facility] [address] [address] [address] Suzie Brooks Potassium [Moles/Vol] 4.1 mmol/L Normal 3.4-5.0 [facility] Comment on above: Performed By: #### U DINA, LIPID, TSH, BNP, CMP, T7 #### [facility] [address] [address] [address] Suzie Brooks Protein [Mass/Vol] 7.5 g/dL Normal 6.1-8.2 [facility] Comment on above: Performed By: #### U DINA, LIPID, TSH, BNP, CMP, T7 #### [facility] [address] [address] [address] Suzie Brooks Sodium [Moles/Vol] 140 mmol/L Normal 137-145 [facility] Comment on above: Performed By: #### U DINA, LIPID, TSH, BNP, CMP, T7 #### [facility] [address] [address] [address] Suzie Brooks Urea nitrogen [Mass/Vol] 16.0 mg/dL Normal 7.0-18.0 [facility] Comment on above: Performed By: #### U DINA, LIPID, TSH, BNP, CMP, T7 #### [facility] [address] [address] [address] Suzie Brooks Urea nitrogen/Creatinine [Mass ratio] 15.2 mg/mg Normal [facility] Comment on above: Performed By: #### U DINA, LIPID, TSH, BNP, CMP, T7 #### [facility] [address] [address] [address] Suzie Brooks URINE MICROSCOPIC ONLYon BACTERIA SMALL Abnormal NONE SEEN [facility] Comment on above: Performed By: #### U DINA, LIPID, TSH, BNP, CMP, T7 #### [facility] [address] [address] [address] Suzie Brooks Bacteria identified Cx Nom (U) INDICATED Normal [facility] Comment on above: Performed By: #### U DINA, LIPID, TSH, BNP, CMP, T7 #### [facility] [address] [address] [address] Suzie Brooks CAST NONE SEEN Normal NONE SEEN [facility] Comment on above: Performed By: #### U DINA, LIPID, TSH, BNP, CMP, T7 #### [facility] [address] [address] [address] Suzie Brooks Crystals LM Nom (Urine sed) NONE SEEN Normal NONE SEEN [facility] Comment on above: Performed By: #### U DINA, LIPID, TSH, BNP, CMP, T7 #### [facility] [address] [address] [address] Suzie Brooks Epithelial cells LM Ql (Urine sed) RARE Normal NONE SEEN /RARE [facility] Comment on above: Performed By: #### U DINA, LIPID, TSH, BNP, CMP, T7 #### [facility] [address] [address] [address] Suzie Brooks MUCOUS NONE SEEN Normal NONE SEEN [facility] Comment on above: Performed By: #### U DINA, LIPID, TSH, BNP, CMP, T7 #### [facility] [address] [address] [address] Suzie Brooks RBC 50-75 Abnormal 0-2 [facility] Comment on above: Performed By: #### U DINA, LIPID, TSH, BNP, CMP, T7 #### [facility] [address] [address] [address] Suzie Brooks WBC 20-50 Abnormal NONE SEEN [facility] Comment on above: Performed By: #### U DINA, LIPID, TSH, BNP, CMP, T7 #### [facility] [address] [address] [address] Suzie Brooks XR KUB 1 VIEWon [...] BEHZAD SANTOS Date: 2021-11-06 21:58 Normal [facility] XR KUB 1 VIEW EXAMINATION: XR KUB [...] RAFAEL GRAVES Date: 2021-11-06 08:06 Normal [facility] CBC AUTO DIFFon 11-05-2021 BASO # 0.1 103/ul Normal 0.0-0.1 [facility] Comment on above: Performed By: #### U DINA, LIPID, TSH, BNP, CMP, T7 #### [facility] [address] [address] [address] Suzie Brooks Basophils/100 WBC (Bld) 0.6 % Normal 0.2-2.0 [facility] Comment on above: Performed By: #### U DINA, LIPID, TSH, BNP, CMP, T7 #### [facility] [address] [address] [address] Suzie Brooks EO # 0.3 103/ul Normal 0.0-0.7 [facility] Comment on above: Performed By: #### U DINA, LIPID, TSH, BNP, CMP, T7 #### [facility] [address] [address] [address] Suzie Brooks Eosinophils/100 WBC (Bld) 2.2 % Normal 0.9-7.0 [facility] Comment on above: Performed By: #### U DINA, LIPID, TSH, BNP, CMP, T7 #### [facility] [address] [address] [address] Suzie Brooks Erythrocyte distribution width (RBC) [Ratio] 13.7 % Normal 11.0-15.0 [facility] Comment on above: Performed By: #### U DINA, LIPID, TSH, BNP, CMP, T7 #### [facility] [address] [place] [address] Dr. Suzie Brooks Hematocrit (Bld) [Volume fraction] 49.0 % Normal 42.0-54.0 [facility] Comment on above: Performed By: #### U DINA, LIPID, TSH, BNP, CMP, T7 #### [facility] [address] [place] [address] Dr. Suzie Brooks Hemoglobin (Bld) [Mass/Vol] 15.9 g/dL Normal 14.0-18.0 [facility] Comment on above: Performed By: #### U DINA, LIPID, TSH, BNP, CMP, T7 #### [facility] [address] [place] [address] Dr. Suzie Brooks IG # 0.07 10e3/ul Critically high 0.00-0.03 [facility] Comment on above: Performed By: #### U DINA, LIPID, TSH, BNP, CMP, T7 #### [facility] [address] [place] [address] Dr. Suzie Brooks IG % 0.5 % Normal 0.0-0.5 [facility] Comment on above: Performed By: #### U DINA, LIPID, TSH, BNP, CMP, T7 #### [facility] [address] [place] [address] Dr. Suzie Brooks LYMPH # 3.1 103/ul Normal 1.2-3.8 [facility] Comment on above: Performed By: #### U DINA, LIPID, TSH, BNP, CMP, T7 #### [facility] [address] [place] [address] Dr. Suzie Brooks Lymphocytes/100 WBC (Bld) 23.8 % Normal 20.5-60.0 [facility] Comment on above: Performed By: #### U DINA, LIPID, TSH, BNP, CMP, T7 #### [facility] [address] [place] [address] Dr. Suzie Brooks MANUAL DIFF REQ NO Normal [facility] Comment on above: Performed By: #### U DINA, LIPID, TSH, BNP, CMP, T7 #### [facility] [address] [place] [address] Dr. Suzie Brooks MCH (RBC) [Entitic mass] 28.8 pg Normal 25.9-34.0 [facility] Comment on above: Performed By: #### U DINA, LIPID, TSH, BNP, CMP, T7 #### [facility] [address] [place] [address] Dr. Suzie Brooks MCHC (RBC) [Mass/Vol] 32.4 g/dL Normal 29.9-35.2 [facility] Comment on above: Performed By: #### U DINA, LIPID, TSH, BNP, CMP, T7 #### [facility] [address] [place] [address] Dr. Suzie Brooks MCV (RBC) [Entitic vol] 88.8 fL Normal 80.0-94.0 [facility] Comment on above: Performed By: #### U DINA, LIPID, TSH, BNP, CMP, T7 #### [facility] [address] [place] [address] Dr. Suzie Brooks MONO # 0.9 103/ul Critically high 0.3-0.8 [facility] Comment on above: Performed By: #### U DINA, LIPID, TSH, BNP, CMP, T7 #### [facility] [address] [place] [address] Dr. Suzie Brooks Monocytes/100 WBC (Bld) 6.8 % Normal 1.7-12.0 [facility] Comment on above: Performed By: #### U DINA, LIPID, TSH, BNP, CMP, T7 #### [facility] [address] [place] [address] Dr. Suzie Brooks NEUT # 8.7 103/ul Critically high 1.4-6.5 [facility] Comment on above: Performed By: #### U DINA, LIPID, TSH, BNP, CMP, T7 #### [facility] [address] [address] [address] Suzie Brooks Neutrophils/100 WBC (Bld) 66.1 % Normal 43.0-75.0 [facility] Comment on above: Performed By: #### U DINA, LIPID, TSH, BNP, CMP, T7 #### [facility] [address] [place], [place] [address] Dr. Suzie Brooks Platelet mean volume (Bld) [Entitic vol] 9.4 fL Critically low 9.5-13.5 [facility] Comment on above: Performed By: #### U DINA, LIPID, TSH, BNP, CMP, T7 #### [facility] [address] [address] [address] Suzie Brooks PLT 278 103/ul Normal 150-450 [facility] Comment on above: Performed By: #### U DINA, LIPID, TSH, BNP, CMP, T7 #### [facility] [address] [address] [address] Suzie Brooks RBC 5.52 106/ul Normal 4.70-6.10 [facility] Comment on above: Performed By: #### U DINA, LIPID, TSH, BNP, CMP, T7 #### [facility] [address] [id number] Suzie Brooks WBC 13.1 103/ul Critically high 4.0-11.0 [facility] Comment on above: Performed By: #### U DINA, LIPID, TSH, BNP, CMP, T7 #### [facility] [address] [address] [address] ABD/PELVIS WO CONon [...] RAFAEL GRAVES Date: 2021-11-05 11:46 Normal [facility] CULTURE URINEon 11-05-2021 CULTURE URINE Culture Observations : No growth Normal [facility] Comment on above: Performed By: #### M AG24 #### [facility] [address] [place] [address] Dr. Suzie Brooks ER URINE PROFILEon 2 Bilirubin Ql (U) Negative Normal NEGATIVE [facility] Comment on above: Performed By: #### C VDTBH #### [facility] [address] [place] [address] Dr. Suzie Brooks Clarity (U) CLEAR Normal CLEAR [facility] Comment on above: Performed By: #### C VDTBH #### [facility] [address] [place] [address] Dr. Suzie Brooks Color (U) DK. YELLOW Normal YELLOW [facility] Comment on above: Performed By: #### C VDTBH #### [facility] [address] [place] [address] Dr. Suzie Brooks ERUAHD A micrscopic examina tion will be performed if indicated. Normal [facility] Comment on above: Performed By: #### C VDTBH #### [facility] [address] [place] [address] Dr. Suzie Brooks Glucose Ql (U) Negative Normal NEGATIVE [facility] Comment on above: Performed By: #### C VDTBH #### [facility] [address] [place] [address] Dr. Suzie Brooks Hemoglobin Ql (U) LARGE Abnormal NEGATIVE [facility] Comment on above: Performed By: #### C VDTBH #### [facility] [address] [place] [address] Dr. Suzie Boroks Ketones Ql (U) Negative Normal NEGATIVE [facility] Comment on above: Performed By: #### C VDTBH #### [facility] [address] [place] [address] Dr. Suzie Brooks LEUKOCYTES Negative Normal NEGATIVE [facility] Comment on above: Performed By: #### C VDTBH #### [facility] [address] [place] [address] Dr. Suzie Brooks Nitrite Ql (U) Negative Normal NEGATIVE [facility] Comment on above: Performed By: #### C VDTBH #### [facility] [address] [place] [address] Dr. Suzie Brooks pH (U) 5.0 [pH] Normal 5-9 [facility] Comment on above: Performed By: #### C VDTBH #### [facility] [address] [place] [address] Dr. Suzie Brooks Protein (U) [Mass/Vol] 100 mg/dL Abnormal NEGATIVE/ TRACE [facility] Comment on above: Performed By: #### C VDTBH #### [facility] [address] [place] [address] Dr. Suzie Brooks SPEC GRAVITY >=1.030 Abnormal 1.005-<=1.02 5 [facility] Comment on above: Performed By: #### C VDTBH #### [facility] [address] [place] [address] Dr. Suzie Brooks UR MICRO IND INDICATED Normal [facility] Comment on above: Performed By: #### C VDTBH #### [facility] [address] [place] [address] Dr. Suzie Brooks Urobilinogen Qn (U) 0.2 {Behzad'U}/dL Normal 0.2 - 1. 0 [facility] Comment on above: Performed By: #### C VDTBH #### [facility] [address] [place] [address] Dr. Suzie Brooks PROF 14(COMP METB)on 022 Albumin [Mass/Vol] 3.9 g/dL Normal 3.4-5.0 [facility] Comment on above: Performed By: #### U DINA, LIPID, TSH, BNP, CMP, T7 #### [facility] [address] [place] [address] Dr. Suzie Brooks Albumin/Globulin [Mass ratio] 1.1 {ratio} Normal [facility] Comment on above: Performed By: #### U DINA, LIPID, TSH, BNP, CMP, T7 #### [facility] [address] [place] [address] Dr. Suzie Brooks ALP [Catalytic activity/Vol] 64 U/L Normal 46-116 [facility] Comment on above: Performed By: #### U DINA, LIPID, TSH, BNP, CMP, T7 #### [facility] [address] [place] [address] Dr. Suzie Brooks ALT [Catalytic activity/Vol] 57 U/L Normal 16-63 [facility] Comment on above: Performed By: #### U DINA, LIPID, TSH, BNP, CMP, T7 #### [facility] [address] [place] [address] Dr. Suzie Brooks Anion gap [Moles/Vol] 14.4 mmol/L Normal [facility] Comment on above: Performed By: #### U DINA, LIPID, TSH, BNP, CMP, T7 #### [facility] [address] [place] [address] Dr. Suzie Brooks AST [Catalytic activity/Vol] 51 U/L Critically high 15-37 [facility] Comment on above: Performed By: #### U DINA, LIPID, TSH, BNP, CMP, T7 #### [facility] [address] [address] [address] Suzie Brooks Bilirubin [Mass/Vol] 0.8 mg/dL Normal 0.2-1.3 [facility] Comment on above: Performed By: #### U DINA, LIPID, TSH, BNP, CMP, T7 #### [facility] [address] [address] [address] Suzie Brooks Calcium [Mass/Vol] 8.5 mg/dL Normal 8.5-10.1 [facility] Comment on above: Performed By: #### U DINA, LIPID, TSH, BNP, CMP, T7 #### [facility] [address] [place] [address] Dr. Suzie Brooks Chloride [Moles/Vol] 103 mmol/L Normal 98-107 [facility] Comment on above: Performed By: #### U DINA, LIPID, TSH, BNP, CMP, T7 #### [facility] [address] [address] [address] Suzie Brooks CO2 [Moles/Vol] 26.8 mmol/L Normal 22.0-30.0 [facility] Comment on above: Performed By: #### U DINA, LIPID, TSH, BNP, CMP, T7 #### [facility] [address] [place] [address] Dr. Suzie Brooks Creatinine [Mass/Vol] 0.98 mg/dL Normal 0.66-1.25 [facility] Comment on above: Performed By: #### U DINA, LIPID, TSH, BNP, CMP, T7 #### [facility] [address] [place] [address] Dr. Suzie Brooks EGFR-AF SERBIAN >60 Normal >=60 [facility] Comment on above: Performed By: #### U DINA, LIPID, TSH, BNP, CMP, T7 #### [facility] [address] [place] [address] Dr. Suzie Brooks EGFR-NON AF SERBIAN >60 Normal >=60 [facility] Comment on above: Performed By: #### U DINA, LIPID, TSH, BNP, CMP, T7 #### [facility] [address] [place] [address] Dr. Suzie Brooks Globulin (S) [Mass/Vol] 3.7 g/dL Normal [facility] Comment on above: Performed By: #### U DINA, LIPID, TSH, BNP, CMP, T7 #### [facility] [address] [place] [address] Dr. Suzie Brooks Glucose [Mass/Vol] 118 mg/dL Critically high 74-106 T [facility] Comment on above: Performed By: #### U DINA, LIPID, TSH, BNP, CMP, T7 #### [facility] [address] [place] [address] Dr. Suzie Brooks Potassium [Moles/Vol] 4.2 mmol/L Normal 3.4-5.0 [facility] Comment on above: Performed By: #### U DINA, LIPID, TSH, BNP, CMP, T7 #### [facility] [address] [place] [address] Dr. Suzie Brooks Protein [Mass/Vol] 7.6 g/dL Normal 6.1-8.2 [facility] Comment on above: Performed By: #### U DINA, LIPID, TSH, BNP, CMP, T7 #### [facility] [address] [place] [address] Dr. Suzie Brooks Sodium [Moles/Vol] 140 mmol/L Normal 137-145 [facility] Comment on above: Performed By: #### U DINA, LIPID, TSH, BNP, CMP, T7 #### [facility] [address] [place] [address] Dr. Suzie Brooks Urea nitrogen [Mass/Vol] 14.0 mg/dL Normal 7.0-18.0 [facility] Comment on above: Performed By: #### U DINA, LIPID, TSH, BNP, CMP, T7 #### [facility] [address] [place] [address] Dr. Suzie Brooks Urea nitrogen/Creatinine [Mass ratio] 14.3 mg/mg Normal [facility] Comment on above: Performed By: #### U DINA, LIPID, TSH, BNP, CMP, T7 #### [facility] [address] [place] [address] Dr. Suzie Brooks URINE MICROSCOPIC ONLYon BACTERIA MODERATE Abnormal NONE SEEN [facility] Comment on above: Performed By: #### C VDTBH #### [facility] [address] [place] [address] Dr. Suzie Brooks Bacteria identified Cx Nom (U) INDICATED Normal [facility] Comment on above: Performed By: #### C VDTBH #### [facility] [address] [place] [address] Dr. Suzie Brooks CAST SEEN Abnormal NONE SEEN [facility] Comment on above: Performed By: #### C VDTBH #### [facility] [address] [place] [address] Dr. Suzie Brooks Crystals LM Nom (Urine sed) NONE SEEN Normal NONE SEEN [facility] Comment on above: Performed By: #### C VDTBH #### [facility] [address] [place] [address] Dr. Suzie Brooks Epithelial cells LM Ql (Urine sed) RARE Normal NONE SEEN /RARE [facility] Comment on above: Performed By: #### C VDTBH #### [facility] [address] [place] [address] Dr. Suzie Brooks HYALINE CAST RARE Normal [facility] Comment on above: Performed By: #### C VDTBH #### [facility] [address] [place] [address] Dr. Suzie Brooks MUCOUS NONE SEEN Normal NONE SEEN [facility] Comment on above: Performed By: #### C VDTBH #### [facility] [address] [place] [address] Dr. Suzie Brooks RBC (U) [#/Vol] /uL Abnormal 0-2 [facility] Comment on above: Performed By: #### C VDTBH #### [facility] [address] [place] [address] Dr. Suzie Brooks WBC NONE SEEN Normal NONE SEEN [facility] Comment on above: Performed By: #### C VDTBH #### [facility] [address] [place], [place] [id number] Dr. Suzie Brooks XR KUB 1 VIEWon [...] BEHZAD CARRASQUILLO Date: 2021-11-01 12:07 Normal [facility] CBC AUTO DIFFon 10-26-2021 BASO # 0.1 103/ul Normal 0.0-0.1 [facility] Comment on above: Performed By: #### U DINA, LIPID, TSH, BNP, CMP, T7 #### [facility] [address] [place] [address] Dr. Suzie Brooks Basophils/100 WBC (Bld) 0.7 % Normal 0.2-2.0 [facility] Comment on above: Performed By: #### U DINA, LIPID, TSH, BNP, CMP, T7 #### [facility] [address] [place] [address] Dr. Suzie Brooks EO # 0.2 103/ul Normal 0.0-0.7 [facility] Comment on above: Performed By: #### U DINA, LIPID, TSH, BNP, CMP, T7 #### [facility] [address] [place] [address] Dr. Suzie Brooks Eosinophils/100 WBC (Bld) 1.5 % Normal 0.9-7.0 [facility] Comment on above: Performed By: #### U DINA, LIPID, TSH, BNP, CMP, T7 #### [facility] [address] [place] [address] Dr. Suzie Brooks Erythrocyte distribution width (RBC) [Ratio] 13.9 % Normal 11.0-15.0 [facility] Comment on above: Performed By: #### U DINA, LIPID, TSH, BNP, CMP, T7 #### [facility] [address] [place] [address] Dr. Suzie Brooks Hematocrit (Bld) [Volume fraction] 47.5 % Normal 42.0-54.0 [facility] Comment on above: Performed By: #### U DINA, LIPID, TSH, BNP, CMP, T7 #### [facility] [address] [address] [address] Suzie Brooks Hemoglobin (Bld) [Mass/Vol] 15.5 g/dL Normal 14.0-18.0 [facility] Comment on above: Performed By: #### U DINA, LIPID, TSH, BNP, CMP, T7 #### [facility] [address] [place] [address] Dr. Suzie Brooks IG # 0.06 10e3/ul Critically high 0.00-0.03 [facility] Comment on above: Performed By: #### U DINA, LIPID, TSH, BNP, CMP, T7 #### [facility] [address] [place] [address] Dr. Suzie Brooks IG % 0.5 % Normal 0.0-0.5 [facility] Comment on above: Performed By: #### U DINA, LIPID, TSH, BNP, CMP, T7 #### [facility] [address] [place] [address] Dr. Suzie Brooks LYMPH # 2.6 103/ul Normal 1.2-3.8 [facility] Comment on above: Performed By: #### U DINA, LIPID, TSH, BNP, CMP, T7 #### [facility] [address] [place] [address] Dr. Suzie Brooks Lymphocytes/100 WBC (Bld) 23.1 % Normal 20.5-60.0 [facility] Comment on above: Performed By: #### U DINA, LIPID, TSH, BNP, CMP, T7 #### [facility] [address] [place] [address] Dr. Suzie Brooks MANUAL DIFF REQ NO Normal [facility] Comment on above: Performed By: #### U DINA, LIPID, TSH, BNP, CMP, T7 #### [facility] [address] [address] [address] Suzie Brooks MCH (RBC) [Entitic mass] 28.9 pg Normal 25.9-34.0 [facility] Comment on above: Performed By: #### U DINA, LIPID, TSH, BNP, CMP, T7 #### [facility] [address] [place] [address] Dr. Suzie Brooks MCHC (RBC) [Mass/Vol] 32.6 g/dL Normal 29.9-35.2 [facility] Comment on above: Performed By: #### U DINA, LIPID, TSH, BNP, CMP, T7 #### [facility] [address] [place] [address] Dr. Suzie Brooks MCV (RBC) [Entitic vol] 88.5 fL Normal 80.0-94.0 [facility] Comment on above: Performed By: #### U DINA, LIPID, TSH, BNP, CMP, T7 #### [facility] [address] [place] [address] Dr. Suzie Brooks MONO # 0.9 103/ul Critically high 0.3-0.8 [facility] Comment on above: Performed By: #### U DINA, LIPID, TSH, BNP, CMP, T7 #### [facility] [address] [place] [address] Dr. Suzie Brooks Monocytes/100 WBC (Bld) 7.9 % Normal 1.7-12.0 [facility] Comment on above: Performed By: #### U DINA, LIPID, TSH, BNP, CMP, T7 #### [facility] [address] [place] [address] Dr. Suzie Brooks NEUT # 7.4 103/ul Critically high 1.4-6.5 [facility] Comment on above: Performed By: #### U DINA, LIPID, TSH, BNP, CMP, T7 #### [facility] [address] [place] [address] Dr. Suzie Brooks Neutrophils/100 WBC (Bld) 66.3 % Normal 43.0-75.0 [facility] Comment on above: Performed By: #### U DINA, LIPID, TSH, BNP, CMP, T7 #### [facility] [address] [address] [address] Suzie Brooks Platelet mean volume (Bld) [Entitic vol] 9.6 fL Normal 9.5-13.5 [facility] Comment on above: Performed By: #### U DINA, LIPID, TSH, BNP, CMP, T7 #### [facility] [address] [address] [address] Suzie Brooks PLT 252 103/ul Normal 150-450 [facility] Comment on above: Performed By: #### U DINA, LIPID, TSH, BNP, CMP, T7 #### [facility] [address] [place] [address] Dr. Suzie Brooks RBC 5.37 106/ul Normal 4.70-6.10 [facility] Comment on above: Performed By: #### U DINA, LIPID, TSH, BNP, CMP, T7 #### [facility] [address] [address] [address] Suzie Brooks WBC 11.2 103/ul Critically high 4.0-11.0 [facility] Comment on above: Performed By: #### U DINA, LIPID, TSH, BNP, CMP, T7 #### [facility] [address] [place] [address] Dr. Suzie Brooks Covid-19 PCR (CVDTB)on 10-09 SARS-CoV-2 (COVID-19) RNA SUKHJINDER+probe Ql (Unsp spec) Not detected Normal NOT DETECTED [facility] Comment on above: Result Comment: This test is not yet approved or cleared by the [place] FDA. When there are no FDA-approved or cleared tests available, and other criteria are met, FDA can make tests available under an emergency access mechanism called an Emergency Use Authorization (EUA). The EUA for this test is supported by the [place] of Health and Human Service's (HHS's) declaration [...] DINA, LIPID, TSH, BNP, CMP, T7 #### [facility] [address] [place] [address] Dr. Suzie Brooks PROF CHEM 8 (BAS METB)on Anion gap [Moles/Vol] 7.7 mmol/L Normal [facility] Comment on above: Performed By: #### C VDTBH #### [facility] [address] [place] [address] Dr. Suzie Brooks Calcium [Mass/Vol] 8.6 mg/dL Normal 8.5-10.1 [facility] Comment on above: Performed By: #### C VDTBH #### [facility] [address] [place] [address] Dr. Suzie Brooks Chloride [Moles/Vol] 104 mmol/L Normal 98-107 [facility] Comment on above: Performed By: #### C VDTBH #### [facility] [address] [place] [address] Dr. Suzie Brooks CO2 [Moles/Vol] 31.8 mmol/L Critically high 22.0-30.0 [facility] Comment on above: Performed By: #### C VDTBH #### [facility] [address] [place] [address] Dr. Suzie Brooks Creatinine [Mass/Vol] 0.99 mg/dL Normal 0.66-1.25 [facility] Comment on above: Performed By: #### C VDTBH #### [facility] [address] [place] [address] Dr. Suzie Brooks EGFR-AF SERBIAN >60 Normal >=60 [facility] Comment on above: Performed By: #### C VDTBH #### [facility] [address] [place] [address] Dr. Suzie Brooks EGFR-NON AF SERBIAN >60 Normal >=60 [facility] Comment on above: Performed By: #### C VDTBH #### [facility] [address] [address] [address] Suzie Brooks Glucose [Mass/Vol] 94 mg/dL Normal 74-106 [facility] Comment on above: Performed By: #### C VDTBH #### [facility] [address] [place] [address] Dr. Suzie Brooks Potassium [Moles/Vol] 4.5 mmol/L Normal 3.4-5.0 [facility] Comment on above: Performed By: #### C VDTBH #### [facility] [address] [place] [address] Dr. Suzie Brooks Sodium [Moles/Vol] 139 mmol/L Normal 137-145 [facility] Comment on above: Performed By: #### C VDTBH #### [facility] [address] [place] [address] Dr. Suzie Brooks Urea nitrogen [Mass/Vol] 12.0 mg/dL Normal 7.0-18.0 [facility] Comment on above: Performed By: #### C VDTBH #### [facility] [address] [place] [address] Dr. Suzie Brooks Urea nitrogen/Creatinine [Mass ratio] 12.1 mg/mg Normal [facility] Comment on above: Performed By: #### C VDTBH #### [facility] [address] [place] [address] Dr. Suzie Brooks PROTIMEon 10-26-2021 INR Coag (PPP) [Relative time] 0.99 {INR} Normal [facility] Comment on above: Performed By: #### C VDTBH #### [facility] [address] [place] [address] Dr. Suzie Brooks INR GUIDELINES SEE BELOW Normal [facility] Comment on above: Result Comment: TOMMY RED INR: 2.0 - 3.0 CONDITIONS NOT LISTED BELOW 2.5 - 3.5 FOR PROSTHETIC HEART VALVE REPLACEMENT 2.5 - 3.5 RECURRENT THROMBOSIS Performed By: #### C VDTBH #### [facility] [address] [address] [address] Suzie Brooks PT Coag (PPP) [Time] 10.7 s Normal 9.0-11.6 [facility] Comment on above: Performed By: #### C VDTBH #### [facility] [address] [place], [place] [address] Dr. Suzie Brooks PTTon 10-26-2021 aPTT Coag (Bld) [Time] 26.4 s Normal 22.3-36.2 [facility] Comment on above: Performed By: #### C VDTBH #### [facility] [address] [address] [address] Suzie Brooks XR KUB 1 VIEWon [...] by: RAFAEL GRAVES Date: 2021-10-17 13:26 Normal [facility] Vital Signs Date Time Vital Sign Value Performing Clinician Giselei ceasar 04-11-2023 11:55-0400 Blood Pressure Location Miki ZENG [facility] 04-11-2023 11:55-0400 Diastolic blood pressure 76 mm[Hg] Miki ZENG [facility] 04-11-2023 11:55-0400 Heart rate 80 /min Miki ZENG [facility] 04-11-2023 11:55-0400 Respiratory rate 16 /min Miki ZENG [facility] 04-11-2023 11:55-0400 Systolic blood pressure 134 mm[Hg] Miki ZENG [facility] 02-25-2022 14:20-0400 Blood Pressure Location Miki ZENG [facility] 02-25-2022 14:20-0400 Diastolic blood pressure 100 mm[Hg] Miki ZENG [facility] 02-25-2022 14:20-0400 Heart rate 86 /min Mikikimberly ZENG [facility] 02-25-2022 14:20-0400 Respiratory rate 16 /min Mikikimberly ZENG [facility] 02-25-2022 14:20-0400 Systolic blood pressure 155 mm[Hg] Miki ZENG [facility] Encounters Encounter Date Encounter Type Care Provider Facility Start: 04-16-2024 ambulatory Miki Muhammadi ty:ROSA [place] Start: 04-01-2024 End: 04-01-2024 ambulatory TRACEY ABDULLAHI Not Available Start: 04-11-2023 End: 04-11-2023 Patient encounter procedure Miki ZENG [facility] Start: 08-14-[address] MARIELLE LERMA Facility :[facility] Start: 08-13-[address] MARIELLE LERMA Facility :[facility] Start: 07-26-2022 End: 07-27-[address] MARIELLE LERMA Facility:[facility] Start: 07-18-2022 End: 07-19-[address] MIKI ZENG Facility:[facility] Start: 05-15-2022 End: 05-16-[address] MARIELLE LERMA Facility:[facility] Start: 02-25-2022 End: 02-25-2022 Patient encounter procedure Miki ZENG [facility] Start: 02-18-2022 End: 02-18-[address] [...] encounter procedure MD Marielle Lerma Work Phone: [facility] Start: 11-12-2021 End: 11-13-[address] MIKI ZENG Facility:[facility] Start: 11-06-2021 End: 11-07-[address] MARIELLE LERMA Facility:[facility] Start: 11-05-2021 End: 11-05-[address] MARIELLE LERMA Facility:[facility] Start: 11-01-2021 End: 11-01-[address] MIKI ZENG Facility:[facility] Start: 10-31-2021 Encounter for preprocedural cardiovascular examination DR MIKI ZENG [facility] Start: 10-30-[address] MIKI ZENG [facility] ity:[facility]1 Start: 10-26-2021 End: 10-27-[address] MIKI ZENG Facility:[facility] Start: 10-26-2021 End: 10-27-2021 Encounter for preprocedural cardiovascular examination DR MIKI ZENG Facility:[facility] Start: 10-17-2021 End: 10-18-[address] MIKI ZENG Facility:[facility] Procedures Date Procedure Procedure Detail Performing Clinician Start: 05-15-[address] JHONATAN ZENG Comment on above: Performed By: #### U DINA, LIPID, TSH, BNP, CMP, T7 #### [facility] [address] [address] [address] Suzie Brooks Start: 11-21-2021 Cystoscopy Miki [...] Provider Fa cility 05-31-2022 SARS-CoV-2 (COVID-19 ) [id number] Mikikimberly ZENG [facility] Comment on above: Result Comment: 2022: [id number] 12-22-2021 SARS-CoV-2 (COVID-19 ) mRNA-1273 vaccine Miki ZENG [facility] 06-05-2021 SARS-CoV-2 (COVID-19 ) mRNA-1273 vaccine [employer] [facility] 05-29-2021 influenza virus vaccine, unspecified formulation [employer] [facility] 05-15-2021 influenza virus vaccine, unspecified formulation [employer] [facility] 11-09-2020 SARS-CoV-2 (COVID-19 ) mRNA-1273 vaccine [employer] [facility] 11-01-2020 SARS-CoV-2 (COVID-19 ) mRNA-1273 vaccine [employer] [facility] 10-09-2020 SARS-CoV-2 (COVID-19 ) mRNA-1273 vaccine [employer] [facility] 10-05-2020 SARS-CoV-2 (COVID-19 ) mRNA-1273 vaccine [employer] [facility] 05-17-2020 influenza virus vaccine, unspecified formulation [employer] [facility] 06-24-2019 tetanus toxoid, redu roberto carlos diphtheria toxoid, and acellular pertussis vaccine, adsorbed [employer] [facility] 05-25-2019 influenza virus vaccine, unspecified formulation [employer] [facility] 05-22-2017 influenza virus vaccine, unspecified formulation [employer] [facility] 05-22-2017 pneumococcal conjuga te vaccine, 13 valent Miki ZENG [facility] 05-30-2016 influenza, unspecifi ed formulation Miki ZENG [facility] 11-01-2013 zoster vaccine, live Mikikimberly ZENG [facility] 12-18-2005 hepatitis A vaccine, adult dosage Miki ZENG [facility] 10-18-2005 hepatitis B vaccine, pediatric or pediatric/adolescent dosage Mikikimberly ZENG [facility] 10-18-2005 tetanus and diphther ia toxoids, adsorbed, preservative free, for adult use (2 Lf of tetanus toxoid and 2 Lf of diphtheria toxoid) Mikikimberly ZENG [facility] 07-26-2005 hepatitis B vaccine, pediatric or pediatric/adolescent dosage Mikikimberly ZENG [facility] 06-20-2005 hepatitis A vaccine, adult dosage Mikikimberly ZENG [facility] 06-20-2005 hepatitis B vaccine, pediatric or pediatric/adolescent dosage Mikikimberly ZENG [facility] Payers Date Payer Category Payer Medicare [id number] Private Health Insurance [id number] 1950 Unknown [id number] 2.16.84 0.1.671375.3.579.2.593 1952 Unknown [id number] 2.16.84 0.1.660069.3.579.2.593 1952 Unknown [id number] 2.16.84 0.1.276083.3.579.2.593 1952 Unknown [id number] 2.16.84 0.1.622176.3.579.2.593 1952 Unknown [id number] 2.16.84 0.1.839641.3.579.2.593 1952 Unknown [id number] 2.16.84 0.1.568602.3.579.2.593 1952 Unknown [id number] 2.16.84 0.1.632094.3.579.2.593 1952 Unknown [id number] 2.16.84 0.1.629558.3.579.2.593 1952 Unknown [id number] 2.16.84 0.1.603977.3.579.2.593 1952 Unknown [id number] 2.16.84 0.1.950698.3.579.2.593 1952 Unknown [id number] 2.16.84 0.1.059074.3.579.2.593 1952 Unknown [id number] 2.16.84 0.1.572852.3.579.2.593 1952 Unknown [id number] 2.16.84 0.1.072490.3.579.2.593 1952 Unknown [id number] 2.16.84 0.1.456178.3.579.2.593 1952 Unknown [id number] 2.16.84 0.1.525984.3.579.2.593 1952 Unknown [id number] 2.16.84 0.1.947118.3.579.2.593 1952 Unknown [id number] 2.16.84 0.1.677660.3.579.2.593 1952 Unknown [id number] 2.16.84 0.1.135403.3.579.2.593 1952 Unknown [id number] 2.16.84 0.1.744235.3.579.2.1259 1952 Unknown [id number] 2.16.8 40.1.686268.3.579.2.727 Self-pay Self Pay [id number] Social History Date Type Detail Facility Start: 10-19-2019 End: 04-11-2023 Tobacco smoking status GAIS Ex-smoker (finding) [facility] Start: 1950 Sex Assigned At Male [facility] Tobacco smoking status Never [facility] Sex Assigned At Male [facility] Functional Status Date Assessment Result Facility 04-11-2023 Functional Status N/A [facility] 02-25-2022 Functional Status N/A [facility] Discharge instructions 04-11-2023 Note Date & [...] include: ?8 oz (237 mL) of milk, nrpbdqs-fidvmpvaqjxq-ukrdr milk, and calcium-fortifiedfruit juice. Calcium-fortified means that [...] ?Spinach (cooked), rhubarb, beets, sweet potatoes, and [place] chard. ?Peanuts. ?Potato chips, canadian fries, and baked potatoes with skin on. ?Nuts and nut products. ?Chocolate. If you regularly take a diuretic medicine, make sure to eat at least 1 or 2 servings of fruits or vegetables that are high in potassium each day. These include: ?Avocado. ?Banana. ?Herkimer, prune, carrot, or tomato juice. ?Baked potato. [...] magnesium, fish oil, or vitamin B6. Take adej-nxc-rwkfbsx and prescription medicines only as told by [...] Casseroles. Pizza. Lasagna. Frozen meals. Potato chips. Divehi fries. The items listed above may not [...] provider. Document Revised: 04/08/2022 Document Reviewed: 04/08/2022 [employer] Patient Education 2022 [employer]. Follow Up Care 08/19/2022 10:39:03 With:THOR BATISTA, Miki Cedeño, URL Address: [facility] [address] [place] [address]- When:Within 1 Year(s) [facility] Discharge instructions 02-25-2022 Note Date [...] 07/28/2006 Document Revised: 04/16/2019 Document Reviewed: 06/27/2017 [employer] Patient Education 2020 [employer]. 02/25/2022 15:28:39 Kidney Stones, Ytah-xv-Dcuj Kidney Stones Kidney stones are rock-like masses [...] Follow these instructions at home: Medicines Take hokk-mlw-tufyrfc and prescription medicines only as told by [...] 01/13/2009 Document Revised: 12/14/2019 Document Reviewed: 12/14/2019 [employer] Patient Education 2020 [employer]. Follow Up Care 11/21/2021 12:48:10 With:THOR BATISTA, Miki Cedeño, URL Address: [facility] [address], [place] [address] [phone] When:Within 4 Month(s) Comments:4 mo fu with IVP [facility] Evaluation + Plan note 02-25-2022 Note Date & Type Note Facility 02-25-2022 Evaluation + Plan note Diagnostic Tests PendingPSA Total 02/25/22Creatinine 02/25/22 [facility] Evaluation + Plan note Note Date & Type Note Facility Evaluation + Plan note Future Appointments Appointment Date:04/16/2024 11:00:00 AM Scheduled Provider:Miki ZENG MD Location:[facility] [place] Appointment Type:URO Office Visit [facility] Evaluation note Note Date & Type Note Facility Evaluation note No assessment information availa [facility] Work Phone: Hospital course Narrative Note Date & Type Note Facility Hospital course Narrative No data available for this section [facility] Progress note Note Date & Type Note Facility Progress note No data available for this section [facility] Chief Complaint and Reason for Visit [...] and content) DATE CREATED AUTHOR 11/22/2021 [facility] DATE CREATED AUTHOR AUTHOR'S ORGANIZ ATION [facility]/2022 [facility] DATE CREATED AUTHOR AUTHOR'S ORGANIZ ATION 04/03/2024 [facility] EPIC DATE CREATED AUTHOR AUTHOR'S ORGANIZ ATION 04/15/2024 [facility] FOR RECORDS PERTAINING TO PATIENTS WHO ARE [...] BE BASED ON THE PRIMARY CLINICAL RECORDS. [employer] provides no warranty or guarantee of the accuracy or completeness of information in this document.
== END 2024-04-17 10:12 | disposition home or self-care (01) ==
PROVIDERS: PCP Family Medicine; Visit Provider Urology
DX: N20.0 Calculus of kidney (principal)
CPT/HCPCS: 76775

== ENCOUNTER 2024-07-25 10:37 | Emergency (ER) | payer MEDICARE, OTHER, SELFPAY ==
[2024-07-25 10:41] VITALS: BP 158/96; PULSE 109; TEMP 37.8; O2SAT 93; BMI 36.6
--- OUTSIDE RECORDS SUMMARY | 2024-07-25 11:28 | XMS_ITS | CCD ---
Author Organization [facility] CliniSyga Care Team Providers Care Sales Associate Cashier Name Role Phone MD Marielle Lerma Primary Care Provider [phone] MD Micki Zeng Attending Provider Marielle Lerma Primary Care Physician [phone] THOR, DR SWEET Admitting Unavailable ZENG, DR SWEET Attending Unavailable HOY, DR PALOMARES Primary Care Unavailable ZENG, DR SWEET Consulting Unavailable ZIEBDMIRTIY, DR BEHZAD Cedeño Consulting Unavailable ASHLEY, DR [...] Care Unavailable THOR, DR SWEET Consulting Unavailable HOKanika, DR PALOMARES Primary Care Unavailable RUDDY ARIZA Admitting Unavailable RUDDY ARIZA Attending Unavailable ANNITARUDDY Consulting Unavailable MADDIETTACACIA Franklin Consulting Unavailable TRACEY ABDULLAHI Attending Unavailable Micki ZENG Attending Unavailable Micki ZENG Attending Unavailable Allergies Allergy Classification Reported Allergen(s) Allergy Type Date of Onset Reaction(s) Facility (1 source) No Known Medication Allergies; Translations: [No Known Medication Allergies] Propensity to adverse reactions (disorder) [facility] Repository Medications Current Medications Medication Drug [...] / HYDROcodone bitartrate 5 mg oral tablet (5 sources) Opioid Agonist Start: 05-29-2021 take 1 tablet by mouth once daily acetaminophen-hydro codone 325 mg-5 mg oral tablet 1 tab(s), Oral, Daily pain, Refill(s) 0 Start Date: 05/29/21 Status: Ordered Start: 09-07-2019 End: 10-12-2019 take 1 tablet by mouth every four to six hours Hydrocodone-Acetaminophen (Ney) 5-325 mg tablet Active 1 TAB PO EVERY 4-6 HOURS 40 September 28, 2019 1:45pm allopurinol 300 mg oral tablet (3 sources) Xanthine Oxidase Inhibitor Start: 03-02-2024 take 1 tablet by mouth once daily allopurinol 300 mg Tab 300 mg = 1 tab(s), Oral, Daily, # 90 tab(s), Refills(s) 3, Pharmacy: [facility]/pharmacy #[id number], 180, cm, 04/11/23 11:56:00 EDT, Height/Length Dosing, 127, kg, 04/11/23 11:56:00 EDT, Weight Dosing Start Date: 03/02/24 Status: Ordered Start: 03-10-2023 take 1 tablet by isa th once daily allopurinol 300 mg Tab 300 mg = 1 tab(s), Oral, Daily, # 90 tab(s), Refills(s) 3, Pharmacy: [facility]/pharmacy #[id number], 180, cm, 08/19/22 9:50:00 EST, Height/Length Dosing, 136.2, kg, 08/19/22 9:50:00 EST, Weight Dosing Start Date: 03/10/23 Status: Ordered Start: 02-25-2022 allopurinol 30 0 mg Tab 150 mg = 0.5 tab(s), Oral, Daily, # 30 tab(s), Refills(s) 11, Pharmacy: [facility] #[id number], 180, cm, 02/25/22 14:22:00 EDT, Height/Length Dosing, 135, kg, 02/25/22 14:22:00 EDT, Weight Dosing Start Date: 02/25/22 Status: Ordered aspirin 81 mg chewable tablet (4 sources) Platelet Aggregation Inhibitor, Nonsteroidal Anti-inflammatory Drug Start: 04-16-2024 aspirin 81 mg Callie w Tab 162 mg = 2 tab(s), Chewed, BID Start Date: 04/16/24 Status: Ordered Start: 02-10-2019 take 2 tablets by mo [facility] once daily aspirin 81 mg oral tablet 162 mg = 2 tab(s), Oral, Daily, Refills(s) 0 Start Date: 02/10/19 Status: Ordered Start: 01-02-2018 take 1 tablet by [facility] twice daily Aspirin (Aspir-81) 81 mg Tablet,Delayed Release (Dr/Ec) Active 1 TAB PO Twice daily January 02, 2018 9:35am clindamycin 0.01 mg/mg topical gel (1 source) Lincosamide Antibacterial Start: 05-25-2021 Clindagel 1% topical gel 1 keke, Topical, BID, Refill(s) 0 Start Date: 05/25/21 Status: Ordered cloNIDine hydrochloride 0.1 mg oral tablet (3 sources) Central alpha-2 Adrenergic Agonist Start: 04-23-2021 take 1 mg by mouth twice daily cloNIDine 0.1 mg tab mg tab(s), Oral, BID, Refills(s) 0 Start Date: 04/23/21 Status: Ordered colchicine 0.6 mg oral tablet (3 sources) Start: 05-25-2021 take 1 tablet by mouth twice daily colchicine 0.6 mg Tab 0.6 mg = 1 tab(s), Oral, BID, Refills(s) 0 Start Date: 05/25/21 Status: Ordered hydroCHLOROthiazide 12.5 mg oral capsule (3 sources) Thiazide Diuretic Start: 09-08-2023 take 1 capsule by mouth once daily hydrochlorothiazide 12.5 mg Cap 12.5 mg = 1 cap(s), Oral, Daily, # 90 cap(s), Refills(s) 3, Pharmacy: [facility] #[id number], 180, cm, 04/11/23 11:56:00 EDT, Height/Length Dosing, 127, kg, 04/11/23 11:56:00 EDT, Weight Dosing Start Date: 09/08/23 Status: Ordered Start: 08-19-2022 take 1 capsule by mo [facility] once daily hydrochlorothiazide 12.5 mg Cap 12.5 mg = 1 cap(s), Oral, Daily, # 90 cap(s), Refills(s) 3, Pharmacy: [facility]/pharmacy #[id number], 180, cm, 08/19/22 9:50:00 EST, Height/Length Dosing, 136.2, kg, 08/19/22 9:50:00 EST, Weight Dosing Start Date: 08/19/22 Status: Ordered Start: 02-25-2022 take 1 capsule by [facility] once daily hydrochlorothiazide 12.5 mg Cap 12.5 mg = 1 cap(s), Oral, Daily, # 30 cap(s), Refills(s) 6, Pharmacy: [facility] #[id number], 180, cm, 02/25/22 14:22:00 EDT, Height/Length Dosing, 135, kg, 02/25/22 14:22:00 EDT, Weight Dosing Start Date: 02/25/22 Status: Ordered hyoscyamine sulfate 0.125 mg oral tablet (1 source) Start: 11-12-2021 hyoscyamine 0. 125 mg oral Tab Refills(s) 0 Start Date: 11/12/21 Status: Ordered lisinopril 40 mg oral tablet (4 sources) Angiotensin Converting Enzyme Inhibitor Start: 01-02-2018 take 1 mg by mouth once daily lisinopril 40 mg Tab mg tab(s), Oral, Daily, Refills(s) 0 Start Date: 02/10/19 Status: Ordered meclizine hydrochloride 25 mg chewable tablet (3 sources) Antiemetic Start: 04-16-2024 take 1 tablet by mouth twice daily meclizine 25 mg oral tablet, chewable 25 mg = 1 tab(s), Chewed, BID Start Date: 04/16/24 Status: Ordered Start: 05-25-2021 [facility] meclizine 25 mg Tab 25 mg = 1 tab(s), Oral, QID, Refills(s) 0 Start Date: 05/25/21 Status: Ordered meloxicam 15 mg oral tablet (4 sources) Nonsteroidal Anti-inflammatory Drug Start: 04-16-2024 take 1 tablet by mouth twice daily Mobic 15 mg Tab 15 mg = 1 tab(s), Oral, BID Start Date: 04/16/24 Status: Ordered Start: 02-10-2019 take 1 mg by mouth once daily Mobic 15 mg Tab mg tab(s), Oral, Daily, Refills(s) 0 Start Date: 02/10/19 Status: Ordered Start: 01-02-2018 take 15 mg by mouth twice sarthak y Meloxicam Active 15 MG PO Twice daily January 02, 2018 9:35am montelukast 10 mg oral tablet (1 source) Leukotriene Receptor Antagonist Start: 04-16-2024 take 1 mg by mouth once daily in the evening montelukast 10 mg Tab mg tab(s), Oral, qPM Start Date: 04/16/24 Status: Ordered Itrmibnd-Jes-Tm-Lyc open-Lutein (Centrum Silver) 0.4-300-250 mg-mcg-mcg Tablet (1 source) Start: 09-02-2019 take 1 tablet by mouth once daily Intsakbi-Vgw-Mf-Ly copen-Lutein (Centrum Silver) 0.4-300-250 mg-mcg-mcg Tablet Active 1 TAB PO Daily September 02, 2019 12:45pm potassium bicarbonate 20 meq effervescent oral tablet (2 sources) Start: 01-02-2018 End: 09-02-2019 Potassium Bicarb-Citric Acid (Effer-K) 20 mEq Tablet, Effervescent Active 20 MEQ PO Twice daily September 02, 2019 12:40pm potassium citrate 10 meq extended release oral tablet (2 sources) Start: 04-11-2023 potassium CITR ATE 10 mEq ER Tab 10 mEq, 1 tab(s), Oral, BID, 60 tab(s), Refill(s) 11, [facility]/pharmacy #[id number], 180, cm, 04/11/23 11:56:00 EDT, Height/Length Dosing, 127, kg, 04/11/23 11:56:00 EDT, Weight Dosing Start Date: 04/11/23 Status: Ordered pravastatin sodium 20 mg oral tablet (1 source) HMG-CoA Reductase Inhibitor Start: 01-02-2018 take 20 mg by mouth once daily at bedtime Pravastatin Active 20 MG PO Daily at bedtime January 02, 2018 9:35am primidone 50 mg oral tablet (4 sources) Anti-epileptic Agent Start: 09-02-2019 take 12.5 mg by mouth once daily at bedtime Primidone Active 12.5 MG PO Daily at bedtime September 02, 2019 12:44pm Start: 02-10-2019 primidone 50 m g Tab 25 mg = 0.5 tab(s), Once a day (at bedtime), Refills(s) 0 Start Date: 02/10/19 Status: Ordered simvastatin 20 mg oral tablet (3 sources) HMG-CoA Reductase Inhibitor Start: 05-29-2021 take [...] BID, # 90 tab(s), Refills(s) 3, Pharmacy: [facility]/pharmacy #[id number], 180, cm, 08/19/22 9:50:00 EST, Height/Length Dosing, 136.2, kg, 08/19/22 9:50:00 EST, Weight Dosing Start Date: 08/19/22 Status: Ordered solifenacin succinate 10 mg oral tablet (2 sources) Cholinergic Muscarinic Antagonist Start: 04-08-2022 End: 12-23-2024 take 1 tablet by mouth once daily Vesicare 10 mg Tab 10 mg = 1 tab(s), Oral, Daily, X 90 day(s), # 90 tab(s), Refills(s) 11, [id number], 180, cm, 02/25/22 14:22:00 EDT, Height/Length Dosing, 135, kg, 02/25/22 14:22:00 EDT, Weight Dosing Start Date: 04/08/22 Stop Date: 12/23/24 Status: Ordered Start: 02-25-2022 take 1 tablet by isa once daily Vesicare 10 mg Tab 10 mg = 1 tab(s), Oral, Daily, # 30 tab(s), Refills(s) 11, [id number], cm, 02/25/22 14:22:00 EDT, Height/Length Dosing, 135, kg, 02/25/22 14:22:00 EDT, Weight Dosing Start Date: 02/25/22 Status: Ordered tadalafil 20 mg oral tablet (4 sources) Phosphodiesterase 5 Inhibitor Start: 10-23-2021 take 1 tablet by mouth once daily Cialis 20 mg Tab 20 mg = 1 tab(s), Oral, Daily, # 30 tab(s), Refills(s) 6, [id number] 180, cm, 10/22/21 14:56:00 EDT, Height/Length Dosing, 135, kg, 10/22/21 14:56:00 EDT, Weight Dosing Start Date: 10/23/21 Status: Ordered Start: 01-02-2018 take 1 tablet by [facility] once daily Tadalafil (Cialis) 10 mg Tablet Active 10 MG PO Daily January 02, 2018 9:35am tamsulosin hydrochloride 0.4 mg oral capsule (5 sources) alpha-Adrenergic Reilly Start: 10-28-2023 take 1 capsule by mouth twice daily tamsulosin 0.4 mg Cap 0.4 mg = 1 cap(s), Oral, BID, # 180 cap(s), Refills(s) 3, [id number], cm, 04/11/23 11:56:00 EDT, Height/Length Dosing, 127, kg, 04/11/23 11:56:00 EDT, Weight Dosing Start Date: 10/28/23 Status: Ordered Start: 04-11-2023 take 1 capsule by [facility] once daily tamsulosin 0.4 mg Cap 0.4 mg = 1 cap(s), Oral, Daily, # 90 cap(s), Refills(s) 3, [id number] 180, cm, 04/11/23 11:56:00 EDT, Height/Length [...] Date Documented Da te Episodic/Chronic Allergic reactions (6 sources) Eczema; Translations: [Solar degeneration] 02-10-2019 Episodic Anxiety disorders (1 source) Anxiety disorder, unspecified; Translations: [ANXIETY DISORDER UNSPECIFIED] Onset: 08-01-2022 Chronic Calculus of urinary tract (16 sources) Kidney stone; Translations: [Calculus of kidney] Onset: 10-31-2021 Episodic Congestive heart failure; nonhypertensive (1 source) Unspecified diastolic (congestive) heart failure; Translations: [UNSPECIFIED DIASTOLIC HEART FAILURE] Onset: 05-17-2022 Chronic Coronary atherosclerosis and other heart disease (4 sources) Coronary atherosclerosis; Translations: [Atherosclerotic heart disease of [place] coronary artery without angina pectoris] Onset: 11-05-2021 [...] WITHOUT ESOPHAGITIS] Onset: 08-01-2022 Chronic Essential hypertension (4 sources) Hypertensive disorder; Translations: [Essential (primary) hypertension] Onset: 08-01-2022 02-10-2019 Chronic Genitourinary symptoms and ill-defined conditions (8 sources) Post-micturition incontinence ; Translations: [Urge incontinence of urine] Onset: 11-05-2021 01-24-2020 Chronic Genitourinary symptoms and ill-defined conditions (11 sources) Nocturia; Translations: [Nocturia] Onset: 11-05-2021 Episodic Gout and other crystal arthropathies (1 source) Gout, unspecified; Translations: [GOUT UNSPECIFIED] Onset: 08-01-2022 Chronic Hyperplasia of prostate (6 sources) Benign prostatic hypertrophy with outflow obstruction; Translations: [Benign prostatic hyperplasia with lower urinary tract symptoms] Onset: 11-05-2021 Chronic Hypertension with complications and secondary hypertension (1 source) Hypertensive heart disease with heart failure; Translations: [HTN HEART DISEASE W/HEART FAIL] Onset: 05-17-2022 Chronic Joint disorders and dislocations; trauma-related (3 sources) Acetabular labrum tear 02-10-2019 Chronic Joint disorders and dislocations; trauma-related (3 sources) Tear of meniscus of knee 02-10-2019 Episodic Nonspecific chest pain (4 sources) Chest pain, unspecified; Translations: [CHEST PAIN UNSPECIFIED] Onset: 07-26-2022 Episodic Osteoarthritis (1 source) Unspecified osteoarthritis, unspecified site; Translations: [UNSPECIFIED OSTEOARTHRITIS UNS SITE] Onset: 08-01-2022 Chronic Other 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) ocean transportation intermediary (current) use of aspirin; Translations: [HALFWAY CURRENT USE OF ASPIRIN] Onset: 08-01-2022 Episodic Other 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) Other ocean transportation intermediary (current) 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; Translations: [OTH REVIT DRAFTER CURRENT DRUG THERAPY] Onset: 08-01-2022 Episodic Other connective tissue disease (1 source) Presence of right artificial knee joint; Translations: [PRESENCE RT ARTIFICIAL KNEE JOINT] Onset: 11-12-2021 Chronic Other gastrointestinal disorders (3 sources) Occult blood in stools 02-10-2019 Episodic Other hereditary and degenerative nervous system conditions (3 sources) Essential tremor 05-25-2021 Chronic Other hereditary and degenerative nervous system conditions (1 source) Essential tremor; Translations: [ESSENTIAL TREMOR] Onset: 08-01-2022 Chronic Other inflammatory condition of skin (3 sources) Lichen simplex chronicus 05-25-2021 Episodic Other lower respiratory disease (1 source) Shortness of breath; Translations: [SHORTNESS OF BREATH] Onset: 08-01-2022 Episodic Other lower respiratory disease (1 source) Dyspnea, unspecified; Translations: [DYSPNEA UNSPECIFIED] Onset: 05-17-2022 Episodic Other male genital disorders (4 sources) Male erectile dysfunction, unspecified; Translations: [Erectile dysfunction] Onset: 11-05-2021 Chronic Other male genital disorders (3 sources) Impotence 01-24-2020 Chronic Other non-epithelial cancer of skin (7 sources) Basal cell carcinoma of lower extremity; Translations: [Basal cell carcinoma of skin] Onset: 08-01-2022 05-29-2021 Episodic Other nutritional; endocrine; and metabolic disorders (3 sources) Body mass index 40+ - severely obese 06-16-2019 Chronic Other nutritional; endocrine; and metabolic disorders (3 sources) Obesity 02-10-2019 Chronic Other nutritional; endocrine; [...] PROSTATE] Onset: 05-17-2022 Episodic Other skin disorders (3 sources) Actinic keratosis 05-25-2021 Episodic Residual codes; unclassified (3 sources) History of arthroscopy of knee joint [...] Onset: 02-18-2022 Episodic Other 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) skilled nursing (current) use of anticoagulants; Translations: [REVIT DRAFTER CURRNT USE ANTICOAGULANTS] Onset: 11-05-2021 Episodic Other [...] Reference Range Facility Ambulatory Visit Summaryon 0 04-16-2024 Ambulatory Visit Summary Ambulatory Visit Summary RIZWAN APARICIO :1950 Visit Date:04/16/2024 Ambulatory Visit Instructions Your Diagnosis BPH with urinary obstruction Kidney stone Nocturia Impotence Tests Performed US Renal -- Results Pending -- XR Abdomen 1 View -- Results Pending -- Please visit your patient portal for your results or contact your primary care physician. Your Care Team Attending Physician - Micki ZENG MD Primary Care Physician - Marielle Lerma MD This Is Your Medications List allopurinol (allopurinol 300 mg Tab) hydrochlorothiazide (hydrochlorothiazide 12.5 mg Cap) potassium citrate (potassium CITRATE 10 mEq ER Tab) tadalafil (Cialis 20 mg Tab) tamsulosin (tamsulosin 0.4 mg Cap) Contact prescribing physician if questions or concerns acetaminophen-hydrocodone (acetaminophen-hydrocodon e 325 mg-5 mg oral tablet) aspirin (aspirin 81 mg Chew Tab) clonidine (cloNIDine 0.1 mg tab) colchicine (colchicine 0.6 mg Tab) lisinopril (lisinopril 40 mg Tab) meclizine (meclizine 25 mg oral tablet, chewable) meloxicam (Mobic 15 mg Tab) montelukast (montelukast 10 mg Tab) primidone (primidone 50 mg Tab) simvastatin (simvastatin 20 mg Tab) [Image Removed: STOP]Stop taking these medications solifenacin (Vesicare 10 mg Tab) Procedures Performed Cystoscopy (11/21/2021), Cystoscopy (11/06/2021), Colonoscopy (11/08/2013), Arthroplasty of the knee, Arthroscopic knee procedure, Basal cell carcinoma, CEIOL - cataract extraction and implantation of intraocular lens, Lithotripsy, Nose reconstruction, Repair of umbilical hernia, Rotator cuff repair, Wide excision. Discharge Vitals Heart Rate (Peripheral) 96 Respiratory Rate 18 Blood Pressure 131/75 Height 180 cm Height 71 in Weight 130.3 kg Weight 286.66 lb BMI 40.22 What to do next Scheduled Follow-Up Appointments Friday 11:00 AM EDT With: Micki ZENG MD Where: [facility] [address] [place] [address]- You Need to Schedule the Following Appointments Follow Up with Micki ZENG MD, URL When: Comments: 1 yr w/ KUB Where: [facility] [address], [facility] [place] [address] [phone] Medications What How Much When Instructions Unchanged allopurinol (allopurinol 300 mg Tab) 1 Tablets By Mouth Every day Unchanged hydrochlorothiazide (hydrochlorothiazide 12.5 mg Cap) 1 Capsules By Mouth Every day Unchanged potassium citrate (potassium CITRATE 10 mEq ER Tab) 1 Tablets By Mouth 2 times a day Unchanged tadalafil (Cialis 20 mg Tab) 1 Tablets By Mouth Every day Unchanged tamsulosin (tamsulosin 0.4 mg Cap) 1 Capsules By Mouth 2 times a day Unchanged acetaminophen-hydrocodone (acetaminophen-hydrocodon e 325 mg-5 mg oral tablet) 1 Tablets By Mouth Every day as needed for pain Contact prescribing physician if questions or concerns Unchanged aspirin (aspirin 81 mg Chew Tab) 2 Tablets Chewed 2 times a day Contact prescribing physician if questions or concerns Unchanged clonidine (cloNIDine 0.1 mg tab) By Mouth 2 times a day Contact prescribing physician if questions or concerns Unchanged colchicine (colchicine 0.6 mg Tab) 1 Tablets By Mouth 2 times a day Contact prescribing physician if questions or concerns Unchanged lisinopril (lisinopril 40 mg Tab) By Mouth Every day Contact prescribing physician if questions or concerns Unchanged meclizine (meclizine 25 mg oral tablet, chewable) 1 Tablets Chewed 2 times a day Contact prescribing physician if questions or concerns Unchanged meloxicam (Mobic 15 mg Tab) 1 Tablets By Mouth 2 times a day Contact prescribing physician if questions or concerns Unchanged montelukast (montelukast 10 mg Tab) By Mouth Once a day (in the evening) Contact prescribing physician if questions or concerns Unchanged primidone (primidone 50 mg Tab) 0.5 Tablets Once a day (at bedtime) Contact prescribing physician if questions or concerns Unchanged simvastatin (simvastatin 20 mg Tab) 1 Tablets By Mouth Once a day (at bedtime) Contact prescribing physician if questions or concerns What How Much When Comments Stop Taking solifenacin (Vesicare 10 mg Tab) 1 Tablets By Mouth Every day Duration: 30 Days Allergies No Known Allergies No Known Medication Allergies Problems Ongoing - Any problem that you are currently receiving treatment for. Acetabular labrum tear Actinic keratosis Atherosclerotic heart [...] left knee Urge incontinence Urgency of urination (more content not included)... [facility] Ambulatory Visit Summary Ambulatory Visit Summary RIZWAN APARICIO :1950 Visit Date:04/16/2024 Ambulatory Visit Instructions Your Diagnosis BPH with urinary obstruction Kidney stone Nocturia Impotence Tests Performed US Renal -- Results Pending -- XR Abdomen 1 View -- Results Pending -- Please visit your patient portal for your results or contact your primary care physician. Your Care Team Attending Physician - Micki ZENG MD Primary Care Physician - Ashley BATISTA, Marielle This Is Your Medications List allopurinol (allopurinol 300 mg Tab) hydrochlorothiazide (hydrochlorothiazide 12.5 mg Cap) potassium citrate (potassium CITRATE 10 mEq ER Tab) tadalafil (Cialis 20 mg Tab) tamsulosin (tamsulosin 0.4 mg Cap) Contact prescribing physician if questions or concerns acetaminophen-hydrocodone (acetaminophen-hydrocodon e 325 mg-5 mg oral tablet) aspirin (aspirin 81 mg Chew Tab) clonidine (cloNIDine 0.1 mg tab) colchicine (colchicine 0.6 mg Tab) lisinopril (lisinopril 40 mg Tab) meclizine (meclizine 25 mg oral tablet, chewable) meloxicam (Mobic 15 mg Tab) montelukast (montelukast 10 mg Tab) primidone (primidone 50 mg Tab) simvastatin (simvastatin 20 mg Tab) [Image Removed: STOP]Stop taking these medications solifenacin (Vesicare 10 mg Tab) Procedures Performed Cystoscopy (11/21/2021), Cystoscopy (11/06/2021), Colonoscopy (11/08/2013), Arthroplasty of the knee, Arthroscopic knee procedure, Basal cell carcinoma, CEIOL - cataract extraction and implantation of intraocular lens, Lithotripsy, Nose reconstruction, Repair of umbilical hernia, Rotator cuff repair, Wide excision. Discharge Vitals Heart Rate (Peripheral) 96 Respiratory Rate 18 Blood Pressure 131/75 Height 180 cm Height 71 in Weight 130.3 kg Weight 286.66 lb BMI 40.22 What to do next You Need to Schedule the Following Appointments Follow Up with THOR BATISTA, AMRIK Khanna When: Comments: 1 yr w/ ISIDRO Where: [facility] [address], [place] [address]- [phone] Medications What How Much When Instructions Unchanged allopurinol (allopurinol 300 mg Tab) 1 Tablets By Mouth Every day Unchanged hydrochlorothiazide (hydrochlorothiazide 12.5 mg Cap) 1 Capsules By Mouth Every day Unchanged potassium citrate (potassium CITRATE 10 mEq ER Tab) 1 Tablets By Mouth 2 times a day Unchanged tadalafil (Cialis 20 mg Tab) 1 Tablets By Mouth Every day Unchanged tamsulosin (tamsulosin 0.4 mg Cap) 1 Capsules By Mouth 2 times a day Unchanged acetaminophen-hydrocodone (acetaminophen-hydrocodon e 325 mg-5 mg oral tablet) 1 Tablets By Mouth Every day as needed for pain Contact prescribing physician if questions or concerns Unchanged aspirin (aspirin 81 mg Chew Tab) 2 Tablets Chewed 2 times a day Contact prescribing physician if questions or concerns Unchanged clonidine (cloNIDine 0.1 mg tab) By Mouth 2 times a day Contact prescribing physician if questions or concerns Unchanged colchicine (colchicine 0.6 mg Tab) 1 Tablets By Mouth 2 times a day Contact prescribing physician if questions or concerns Unchanged lisinopril (lisinopril 40 mg Tab) By Mouth Every day Contact prescribing physician if questions or concerns Unchanged meclizine (meclizine 25 mg oral tablet, chewable) 1 Tablets Chewed 2 times a day Contact prescribing physician if questions or concerns Unchanged meloxicam (Mobic 15 mg Tab) 1 Tablets By Mouth 2 times a day Contact prescribing physician if questions or concerns Unchanged montelukast (montelukast 10 mg Tab) By Mouth Once a day (in the evening) Contact prescribing physician if questions or concerns Unchanged primidone (primidone 50 mg Tab) 0.5 Tablets Once a day (at bedtime) Contact prescribing physician if questions or concerns Unchanged simvastatin (simvastatin 20 mg Tab) 1 Tablets By Mouth Once a day (at bedtime) Contact prescribing physician if questions or concerns What How Much When Comments Stop Taking solifenacin (Vesicare 10 mg Tab) 1 Tablets By Mouth Every day Duration: 30 Days Allergies No Known Allergies No Known Medication Allergies Problems Ongoing - Any problem that you are currently receiving treatment for. Acetabular labrum tear Actinic keratosis Atherosclerotic heart [...] left knee Urge incontinence Urgency of urination Patient Survey You may receive a survey via text or e-mail asking about your office visit. Please share your experience with us by completing your survey. We appreciate your feedback and thank you for choosing us for your c (more content not included)... [facility] Urology Office/Clinic Noteon 04-16-2024 Urology Office/Clinic Note Urology Office/Clinic Note Chief Complaint Patient is here for 1 year fu HPI Staff 1 yr f/u Previous dx: BPH with urinary obstruction, kidney stone, nocturia and impotence. *Tamsulosin 0.4mg bid, Tadalafil 20mg prn, Allopurinol 300mg qd, HCTZ 12.5mg qd. VESIcare 10mg qd switched to qod at prior OV Needs to discuss this medication due to dry mouth . Patient was in ER due to elevated BP yesterday. Potassium citrate Er 10meq qd therapy instead of bid therapy. Dysuria: Denies Incomplete bladder emptying: Denies Hematuria: Denies Frequency: Denies Urgency: Sometimes, mild leaking, no pad Nocturia: mild, varies 3-6 times per night, wakes up from dry mouth...only voids 3 times Stream: Good stream, denies hesitancy Leaking: Denies Post void dripping: mild Wearing pads/ Depends: Denies Urge incontinence: mild, sometimes leaks, no pad Stress incontinence: Denies Incontinence without Sensory Awareness: Denies Abdominal pain: Denies Flank pain: Denies Sexual complaints: Denies History of Present Illness Tests reviewed: reviewed UA, PSA I have reviewed the previous health record information and history for this patient from Dr. Zeng. I have reviewed and verified the staff HPI to be accurate for this encounter. Review of Systems PHQ Score Initial Depression Screen Score: 0 SCORE ROS - Provider Constitutional: denies weight loss, [...] HPI. Physical Exam Vitals & Measurements HR: 96(Peripheral) RR: 18 BP: 131/75 HT: 71 in HT: 180 cm WT: 130.3 kg WT: 286.66 lb BMI: 40.22 General Appearance: alert, no distress, well nourished, well developed male. Assessment/Plan 1. BPH with urinary obstruction (N40.1: Benign prostatic hyperplasia with lower urinary tract symptoms) PSA 05/25/20 - 0.42 05/15/22 - 0.49 PCP checks PSA. UA today negative for blood and infection. Taking Tamsulosin 0.4mg bid. Good stream. Feels empty. -Cont Tamsulosin wo changes. Call for refills. 2. Kidney stone (N20.0: Calculus of kidney) XR IVP 07/18/22 - Neg. S/p Cysto, basket extraction 02/18/[address] Fry on 02/18/22. Stone analysis - 70% CaOx [place], 30% uric acid. LUIS 04/01/23 - cortical thickening of both kidneys, no hydronephrosis and tiny punctate calcifications in the left kidney. Taking Allopurinol 300mg qd and HCTZ 12.5mg qd. Also started on potassium citrate 10mEq bid at prior OV but is currently taking it qd. No longer taking sodium bicarbonate 650mg qd, this was stopped per OV note 02/25/22. Denies any recent stone episodes. Has not had updated imaging. Recommended pt to do this to ensure no significant stone burden. -Cont Allopurinol 300mg qd, HCTZ 12.5mg qd, and potassium citrate 10mEq qd. Call for refills. -Schedule LUIS now -KUB in 1 year 3. Nocturia (R35.1: Nocturia) Gets up 3x/night to void. VESIcare 10mg qd switched to qod at prior OV due to pt not feeling he was emptying. Shares he had severe dry mouth with daily VESIcare. Also realized he had tongue swelling when he took clonidine bid so now taking it qd as he did not want VESIcare to exacerbate sxs. Went to ER yesterday due to elevated BP. Advised pt to stop VESIcare completely so he can start taking clonidine bid. -D/c VESIcare -Consider new bladder med in future (will avoid adding new med given recent med changes) 4. Impotence (N52.9: Male erectile dysfunction, unspecified) Tadalafil 20mg prn. Follow-up With When Contact Information THOR BATISTA, Micki Cedeño, URL [facility] [address], [place] [phone] Additional Instructions: 1 yr w/ KUB Patient Education Kidney Stones, Fibb-dg-Ugob I, Brenda Lopez, personally scribed for Dr. Zeng on 04/16/2024 12:27:55. . Documentation recorded by the berniceibBrenda reynoso, accurately reflects the services(s) I performed and decisions made by me. Authenticated by Dr. Zeng on 04/16/2024 12:29:40. Problem List/Past Medical History Ongoing Acetabular labrum [...] Urgency of urination Historical No qualifying data Proced (more content not included)... Normal [facility] Comment on above: Result Comment: Elec tronically Signed By: THOR BATISTA, Micki Cedeño\.br\Date and Time Signed: 04/16/24 12:29 EDT\.br\Electronically Co-Signed By: Brenda Lopez\.br\Date and Time Co-Signed: 04/16/24 12:28 EDT CBC AUTO DIFFon 07-27-2022 BASO # 0.1 103/ul Normal 0.0-0.1 [facility] Comment on above: Performed By: #### U DINA, LIPID, TSH, BNP, CMP, T7 #### [facility] [address] [address] [address] Suzie Brooks Basophils/100 WBC (Bld) 0.5 % Normal 0.2-2.0 [facility] Comment on above: Performed By: #### U DINA, LIPID, TSH, BNP, CMP, T7 #### [facility] [address] [place] [address] Dr. Suzie Brooks EO # 0.4 103/ul Normal 0.0-0.7 [facility] Comment on above: Performed By: #### U DINA, LIPID, TSH, BNP, CMP, T7 #### [facility] [address] [place] [address] Dr. Suzie Brooks Eosinophils/100 WBC (Bld) 3.3 % Normal 0.9-7.0 [facility] Comment on above: Performed By: #### U DINA, LIPID, TSH, BNP, CMP, T7 #### [facility] [address] [place] [address] Dr. Suzie Brooks Erythrocyte distribution width (RBC) [Ratio] 14.6 % Normal 11.0-15.0 [facility] Comment on above: Performed By: #### U DINA, LIPID, TSH, BNP, CMP, T7 #### [facility] [address] [place] [address] Dr. Suzie Brooks Hematocrit (Bld) [Volume fraction] 42.0 % Normal 42.0-54.0 [facility] Comment on above: Performed By: #### U DINA, LIPID, TSH, BNP, CMP, T7 #### [facility] [address] [place] [address] Dr. Suzie Brooks Hemoglobin (Bld) [Mass/Vol] 14.1 g/dL Normal 14.0-18.0 [facility] Comment on above: Performed By: #### U DINA, LIPID, TSH, BNP, CMP, T7 #### [facility] [address] [place] [address] Dr. Suzie Brooks IG # 0.03 10e3/ul Normal 0.00-0.03 [facility] Comment on above: Performed By: #### U DINA, LIPID, TSH, BNP, CMP, T7 #### [facility] [address] [place] [address] Dr. Suzie Brooks IG % 0.3 % Normal 0.0-0.5 [facility] Comment on above: Performed By: #### U DINA, LIPID, TSH, BNP, CMP, T7 #### [facility] [address] [place] [address] Dr. Suzie Brooks LYMPH # 3.1 103/ul Normal 1.2-3.8 [facility] Comment on above: Performed By: #### U DINA, LIPID, TSH, BNP, CMP, T7 #### [facility] [address] [place] [address] Dr. Suzie Brooks Lymphocytes/100 WBC (Bld) 28.2 % Normal 20.5-60.0 [facility] Comment on above: Performed By: #### U DINA, LIPID, TSH, BNP, CMP, T7 #### [facility] [address] [place] [address] Dr. Suzie Brooks MANUAL DIFF REQ NO Normal [facility] Comment on above: Performed By: #### U DINA, LIPID, TSH, BNP, CMP, T7 #### [facility] [address] [place] [address] Dr. Suzie Brooks MCH (RBC) [Entitic mass] 28.5 pg Normal 25.9-34.0 [facility] Comment on above: Performed By: #### U DINA, LIPID, TSH, BNP, CMP, T7 #### [facility] [address] [place] [address] Dr. Suzie Brooks MCHC (RBC) [Mass/Vol] 33.6 g/dL Normal 29.9-35.2 [facility] Comment on above: Performed By: #### U DINA, LIPID, TSH, BNP, CMP, T7 #### [facility] [address] [address] [address] Suzie Brooks MCV (RBC) [Entitic vol] 85.0 fL Normal 80.0-94.0 [facility] Comment on above: Performed By: #### U DINA, LIPID, TSH, BNP, CMP, T7 #### [facility] [address] [place] [address] Dr. Suzie Brooks MONO # 0.8 103/ul Normal 0.3-0.8 [facility] Comment on above: Performed By: #### U DINA, LIPID, TSH, BNP, CMP, T7 #### [facility] [address] [place] [address] Dr. Suzie Brooks Monocytes/100 WBC (Bld) 7.2 % Normal 1.7-12.0 [facility] Comment on above: Performed By: #### U DINA, LIPID, TSH, BNP, CMP, T7 #### [facility] [address] [place] [address] Dr. Suzie Brooks NEUT # 6.7 103/ul Critically high 1.4-6.5 [facility] Comment on above: Performed By: #### U DINA, LIPID, TSH, BNP, CMP, T7 #### [facility] [address] [place] [address] Dr. Suzie Brooks Neutrophils/100 WBC (Bld) 60.5 % Normal 43.0-75.0 [facility] Comment on above: Performed By: #### U DINA, LIPID, TSH, BNP, CMP, T7 #### [facility] [address] [place] [address] Dr. Suzie Brooks Platelet mean volume (Bld) [Entitic vol] 9.6 fL Normal 9.5-13.5 [facility] Comment on above: Performed By: #### U DINA, LIPID, TSH, BNP, CMP, T7 #### [facility] [address] [place] [address] Dr. Suzie Brooks PLT 266 103/ul Normal 150-450 [facility] Comment on above: Performed By: #### U DINA, LIPID, TSH, BNP, CMP, T7 #### [facility] [address] [place] [address] Dr. Suzie Brooks RBC 4.94 106/ul Normal 4.70-6.10 [facility] Comment on above: Performed By: #### U DINA, LIPID, TSH, BNP, CMP, T7 #### [facility] [address] [place] [address] Dr. Suzie Brooks WBC 11.1 103/ul Critically high 4.0-11.0 [facility] Comment on above: Performed By: #### U DINA, LIPID, TSH, BNP, CMP, T7 #### [facility] [address] [place] [address] Dr. Suzie Brooks PROF 14(COMP METB)on 022 Albumin [Mass/Vol] 3.2 g/dL Critically low 3.4-5.0 [facility] Comment on above: Performed By: #### C VDTBH #### [facility] [address] [place] [address] Dr. Suzie Brooks Albumin/Globulin [Mass ratio] 0.9 {ratio} Normal [facility] Comment on above: Performed By: #### C VDTBH #### [facility] [address] [place] [address] Dr. Suzie Brooks ALP [Catalytic activity/Vol] 60 U/L Normal 46-116 [facility] Comment on above: Performed By: #### C VDTBH #### [facility] [address] [place] [address] Dr. Suzie Brooks ALT [Catalytic activity/Vol] 27 U/L Normal 16-63 [facility] Comment on above: Performed By: #### C VDTBH #### [facility] [address] [place] [address] Dr. Suzie Brooks Anion gap [Moles/Vol] 10.4 mmol/L Normal [facility] Comment on above: Performed By: #### C VDTBH #### [facility] [address] [place] [address] Dr. Suzie Brooks AST [Catalytic activity/Vol] 23 U/L Normal 15-37 [facility] Comment on above: Performed By: #### C VDTBH #### [facility] [address] [place] [address] Dr. Suzie Brooks Bilirubin [Mass/Vol] 0.4 mg/dL Normal 0.2-1.0 [facility] Comment on above: Performed By: #### C VDTBH #### [facility] [address] [place] [address] Dr. Suzie Brooks Calcium [Mass/Vol] 8.4 mg/dL Critically low 8.5-10.1 [facility] Comment on above: Performed By: #### C VDTBH #### [facility] [address] [place] [address] Dr. Suzie Brooks Chloride [Moles/Vol] 104 mmol/L Normal 98-107 [facility] Comment on above: Performed By: #### C VDTBH #### [facility] [address] [place] [address] Dr. Suzie Brooks CO2 [Moles/Vol] 26.1 mmol/L Normal 21.0-32.0 [facility] Comment on above: Performed By: #### C VDTBH #### [facility] [address] [place] [address] Dr. Suzie Brooks Creatinine [Mass/Vol] 0.90 mg/dL Normal 0.70-1.30 [facility] Comment on above: Performed By: #### C VDTBH #### [facility] [address] [place] [address] Dr. Suzie Brooks EGFR-AF JAMAICAN >60 Normal >=60 [facility] Comment on above: Performed By: #### C VDTBH #### [facility] [address] [place] [address] Dr. Suzie Brooks EGFR-NON AF JAMAICAN >60 Normal >=60 [facility] Comment on above: Performed By: #### C VDTBH #### [facility] [address] [place] [address] Dr. Suzie Brooks Globulin (S) [Mass/Vol] 3.4 g/dL Normal [facility] Comment on above: Performed By: #### C VDTBH #### [facility] [address] [place] [address] Dr. Suzie Brooks Glucose [Mass/Vol] 111 mg/dL Critically high 74-106 [facility] Comment on above: Performed By: #### C VDTBH #### [facility] [address] [place] [address] Dr. Suzie Brooks Potassium [Moles/Vol] 3.5 mmol/L Normal 3.5-5.1 [facility] Comment on above: Performed By: #### C VDTBH #### [facility] [address] [place] [address] Dr. Suzie Brooks Protein [Mass/Vol] 6.6 g/dL Normal 6.4-8.2 [facility] Comment on above: Performed By: #### C VDTBH #### [facility] [address] [place] [address] Dr. Suzie Brooks Sodium [Moles/Vol] 137 mmol/L Normal 136-145 [facility] Comment on above: Performed By: #### C VDTBH #### [facility] [address] [place] [address] Dr. Suzie Brooks Urea nitrogen [Mass/Vol] 13.0 mg/dL Normal 7.0-18.0 [facility] Comment on above: Performed By: #### C VDTBH #### [facility] [address] [place] [address] Dr. Suzie Brooks Urea nitrogen/Creatinine [Mass ratio] 14.4 mg/mg Normal [facility] Comment on above: Performed By: #### C VDTBH #### [facility] [address] [place] [address] Dr. Suzie Brooks BNPon 07-26-2022 Natriuretic peptide B (Bld) [Mass/Vol] 118.0 pg/mL Normal <=900.0 [facility] Comment on above: Performed By: #### U DINA, LIPID, TSH, BNP, CMP, T7 #### [facility] [address] [address] [address] Suzie Brooks CARDIAC MJ 3-6on 2 CK [Catalytic activity/Vol] 240 U/L Normal 39-308 [facility] Comment on above: Performed By: #### U DINA, LIPID, TSH, BNP, CMP, T7 #### [facility] [address] [address] [address] Suzie Brooks CK.MB [Mass/Vol] 3.43 ng/mL Normal <=3.60 [facility] Comment on above: Performed By: #### U DINA, LIPID, TSH, BNP, CMP, T7 #### [facility] [address] [address] [address] Suzie Brooks HSTROP 8.6 pg/mL Normal 4.0-76.1 [facility] Comment on above: Result Comment: CUT- OFF POINTS HAVE BEEN ESTABLISHED BASED ON THE FOURTH UNIVERSAL DEFINITIONS OF MYOCARDIAL INFARCTION. THE UPPER REFERENCE LIMIT (URL) OF TROPONIN, DEFINED THE 99TH PERCENTILE OF cTnI DISTRIBUTION IN A REFERENCE POPULATION, HAS BEEN CONFIRMED THE DECISION THRESHOLD FOR LA DIAGNOSIS. Performed By: #### U DINA, LIPID, TSH, BNP, CMP, T7 #### [facility] [address] [address] [address] Suzie Brooks CK [Catalytic activity/Vol] 239 U/L Normal 39-308 [facility] Comment on above: Performed By: #### M AG24 #### [facility] [address] [address] [address] Suzie Brooks CK.MB [Mass/Vol] 2.93 ng/mL Normal <=3.60 [facility] Comment on above: Performed By: #### M AG24 #### [facility] [address] [place] [address] Dr. Suzie Brooks HSTROP 10.4 pg/mL Normal 4.0-76.1 [facility] Comment on above: Result Comment: CUT- OFF POINTS HAVE BEEN ESTABLISHED BASED ON THE FOURTH UNIVERSAL DEFINITIONS OF MYOCARDIAL INFARCTION. THE UPPER REFERENCE LIMIT (URL) OF TROPONIN, DEFINED THE 99TH PERCENTILE OF cTnI DISTRIBUTION IN A REFERENCE POPULATION, HAS BEEN CONFIRMED THE DECISION THRESHOLD FOR LA DIAGNOSIS. Performed By: #### M AG24 #### [facility] [address] [address] [address] Suzie Brooks CARDIAC MJ ADMITon 022 CK [Catalytic activity/Vol] 234 U/L Normal 39-308 [facility] Comment on above: Performed By: #### O X24HR #### [facility] [address] [address] [address] Suzie Brooks CK.MB [Mass/Vol] 3.37 ng/mL Normal <=3.60 [facility] Comment on above: Performed By: #### O X24HR #### [facility] [address] [place] [address] Dr. Suzie Brooks HSTROP 9.0 pg/mL Normal 4.0-76.1 [facility] Comment on above: Result Comment: CUT- OFF POINTS HAVE BEEN ESTABLISHED BASED ON THE FOURTH UNIVERSAL DEFINITIONS OF MYOCARDIAL INFARCTION. THE UPPER REFERENCE LIMIT (URL) OF TROPONIN, DEFINED THE 99TH PERCENTILE OF cTnI DISTRIBUTION IN A REFERENCE POPULATION, HAS BEEN CONFIRMED THE DECISION THRESHOLD FOR LA DIAGNOSIS. Performed By: #### O X24HR #### [facility] [address] [place] [address] Dr. Suzie Brooks EDIE 85 ng/mL Normal 16-96 [facility] Comment on above: Performed By: #### O X24HR #### [facility] [address] [place] [address] Dr. Suzie Brooks CBC AUTO DIFFon 07-26-2022 BASO # 0.1 103/ul Normal 0.0-0.1 [facility] Comment on above: Performed By: #### U DINA, LIPID, TSH, BNP, CMP, T7 #### [facility] [address] [address] [address] Suzie Brooks Basophils/100 WBC (Bld) 0.4 % Normal 0.2-2.0 [facility] Comment on above: Performed By: #### U DINA, LIPID, TSH, BNP, CMP, T7 #### [facility] [address] [address] [address] Suzie Brooks EO # 0.3 103/ul Normal 0.0-0.7 [facility] Comment on above: Performed By: #### U DINA, LIPID, TSH, BNP, CMP, T7 #### [facility] [address] [place] [address] Dr. Suzie Brooks Eosinophils/100 WBC (Bld) 2.5 % Normal 0.9-7.0 [facility] Comment on above: Performed By: #### U DINA, LIPID, TSH, BNP, CMP, T7 #### [facility] [address] [place] [address] Dr. Suzie Brooks Erythrocyte distribution width (RBC) [Ratio] 14.4 % Normal 11.0-15.0 [facility] Comment on above: Performed By: #### U DINA, LIPID, TSH, BNP, CMP, T7 #### [facility] [address] [place] [address] Dr. Suzie Brooks Hematocrit (Bld) [Volume fraction] 46.0 % Normal 42.0-54.0 [facility] Comment on above: Performed By: #### U DINA, LIPID, TSH, BNP, CMP, T7 #### [facility] [address] [place] [address] Dr. Suzie Brooks Hemoglobin (Bld) [Mass/Vol] 15.6 g/dL Normal 14.0-18.0 [facility] Comment on above: Performed By: #### U DINA, LIPID, TSH, BNP, CMP, T7 #### [facility] [address] [place] [address] Dr. Suzie Brooks IG # 0.07 10e3/ul Critically high 0.00-0.03 [facility] Comment on above: Performed By: #### U DINA, LIPID, TSH, BNP, CMP, T7 #### [facility] [address] [place] [address] Dr. Suzie Brooks IG % 0.6 % Critically high 0.0-0.5 [facility] Comment on above: Performed By: #### U DINA, LIPID, TSH, BNP, CMP, T7 #### [facility] [address] [place] [address] Dr. Suzie Brooks LYMPH # 2.9 103/ul Normal 1.2-3.8 [facility] Comment on above: Performed By: #### U DINA, LIPID, TSH, BNP, CMP, T7 #### [facility] [address] [address] [address] Suzie Brooks Lymphocytes/100 WBC (Bld) 24.2 % Normal 20.5-60.0 [facility] Comment on above: Performed By: #### U DINA, LIPID, TSH, BNP, CMP, T7 #### [facility] [address] [place] [address] Dr. Suzie Brooks MANUAL DIFF REQ NO Normal [facility] Comment on above: Performed By: #### U DINA, LIPID, TSH, BNP, CMP, T7 #### [facility] [address] [place] [address] Dr. Suzie Brooks MCH (RBC) [Entitic mass] 28.6 pg Normal 25.9-34.0 [facility] Comment on above: Performed By: #### U DINA, LIPID, TSH, BNP, CMP, T7 #### [facility] [address] [place] [address] Dr. uSzie Brooks MCHC (RBC) [Mass/Vol] 33.9 g/dL Normal 29.9-35.2 [facility] Comment on above: Performed By: #### U DINA, LIPID, TSH, BNP, CMP, T7 #### [facility] [address] [place] [address] Dr. Suzie Brooks MCV (RBC) [Entitic vol] 84.4 fL Normal 80.0-94.0 [facility] Comment on above: Performed By: #### U DINA, LIPID, TSH, BNP, CMP, T7 #### [facility] [address] [place] [address] Dr. Suzie Brooks MONO # 0.8 103/ul Normal 0.3-0.8 [facility] Comment on above: Performed By: #### U DINA, LIPID, TSH, BNP, CMP, T7 #### [facility] [address] [place] [address] Dr. Suzie rBooks Monocytes/100 WBC (Bld) 6.7 % Normal 1.7-12.0 [facility] Comment on above: Performed By: #### U DINA, LIPID, TSH, BNP, CMP, T7 #### [facility] [address] [address] [address] Suzie Brooks NEUT # 7.8 103/ul Critically high 1.4-6.5 [facility] Comment on above: Performed By: #### U DINA, LIPID, TSH, BNP, CMP, T7 #### [facility] [address] [address] [address] Suzie Brooks Neutrophils/100 WBC (Bld) 65.6 % Normal 43.0-75.0 [facility] Comment on above: Performed By: #### U DINA, LIPID, TSH, BNP, CMP, T7 #### [facility] [address] [address] [address] Suzie Brooks Platelet mean volume (Bld) [Entitic vol] 9.7 fL Normal 9.5-13.5 [facility] Comment on above: Performed By: #### U DINA, LIPID, TSH, BNP, CMP, T7 #### [facility] [address] [address] [address] Suzie Brooks PLT 289 103/ul Normal 150-450 [facility] Comment on above: Performed By: #### U DINA, LIPID, TSH, BNP, CMP, T7 #### [facility] [address] [address] [address] Suzie Brooks RBC 5.45 106/ul Normal 4.70-6.10 [facility] Comment on above: Performed By: #### U DINA, LIPID, TSH, BNP, CMP, T7 #### [facility] [address] [address] [address] Suzie Brooks WBC 11.9 103/ul Critically high 4.0-11.0 [facility] Comment on above: Performed By: #### U DINA, LIPID, TSH, BNP, CMP, T7 #### [facility] [address] [address] [address] Suzie Brooks CTA CHEST WO W Livia 022 CTA CHEST WO W CON EXAMINATION: CTA CALLIE ST WO CON HISTORY: CHEST PAIN, UNSPECIFIED ; acute [...] BEHZAD CARRASQUILLO Date: 2022-07-26 11:59 Normal [facility]11 SARS-CoV-2 (COVID-19) RNA SUKHJINDER+probe Ql (Unsp spec) Not detected Normal NOT DETECTED [facility] Comment on above: Result Comment: When diagnostic [...] for this test is supported by the [place] of Health and Human Service's declaration that [...] DINA, LIPID, TSH, BNP, CMP, T7 #### [facility] [address] [place] [id number] Suzie Brooks D-DIMERon 07-26-2022 D-DIMER 0.88 mg/L FEU Critically high <=0.59 [facility] Comment on above: Performed By: #### C VDTBH #### [facility] [address] [address] [address] Suzie Brooks D-DIMER COMMENTS SEE BELOW Normal [facility] Comment on above: Result Comment: Incr [...] hospitalization. Performed By: #### C VDTBH #### [facility] [address] [place], [place] [id number] Dr. Suzie Brooks ECHOCARDIO M/2D COMPLETEon 1 09-26-2021 ECHOCARDIO M/2D COMPLETE Patient: RIZWAN APARICIO Exam Date: 07/26/2022 : 1950 Gender:M Ordering : DR MARIELLE LERMA . Admission #: [id number] Family : Order #: [id number] CLICK HERE TO VIEW EXAM ECHOCARDIOGRAM REPORT [...] Rios M.D. on 07/26/2022 at 16:22 Normal [facility] PROF 14(COMP METB)on 07-26- 022 Albumin [Mass/Vol] 3.6 g/dL Normal 3.4-5.0 [facility] Comment on above: Performed By: #### U DINA, LIPID, TSH, BNP, CMP, T7 #### [facility] [address] [address] [address] Suzie Brooks Albumin/Globulin [Mass ratio] 0.9 {ratio} Normal [facility] Comment on above: Performed By: #### U DINA, LIPID, TSH, BNP, CMP, T7 #### [facility] [address] [place] [address] Dr. Suzie Brooks ALP [Catalytic activity/Vol] 70 U/L Normal 46-116 [facility] Comment on above: Performed By: #### U DINA, LIPID, TSH, BNP, CMP, T7 #### [facility] [address] [address] [address] Suzie Brooks ALT [Catalytic activity/Vol] 30 U/L Normal 16-63 [facility] Comment on above: Performed By: #### U DINA, LIPID, TSH, BNP, CMP, T7 #### [facility] [address] [address] [address] Suzie Brooks Anion gap [Moles/Vol] 9.2 mmol/L Normal [facility] Comment on above: Performed By: #### U DINA, LIPID, TSH, BNP, CMP, T7 #### [facility] [address] [place] [address] Dr. Suzie Brooks AST [Catalytic activity/Vol] 29 U/L Normal 15-37 [facility] Comment on above: Performed By: #### U DINA, LIPID, TSH, BNP, CMP, T7 #### [facility] [address] [address] [address] Suzie Brooks Bilirubin [Mass/Vol] 0.5 mg/dL Normal 0.2-1.0 [facility] Comment on above: Performed By: #### U DINA, LIPID, TSH, BNP, CMP, T7 #### [facility] [address] [address] [address] Suzie Brooks Calcium [Mass/Vol] 8.8 mg/dL Normal 8.5-10.1 [facility] Comment on above: Performed By: #### U DINA, LIPID, TSH, BNP, CMP, T7 #### [facility] [address] [address] [address] Suzie Brooks Chloride [Moles/Vol] 102 mmol/L Normal 98-107 [facility] Comment on above: Performed By: #### U DINA, LIPID, TSH, BNP, CMP, T7 #### [facility] [address] [place] [address] Dr. Suzie Brooks CO2 [Moles/Vol] 27.2 mmol/L Normal 21.0-32.0 [facility] Comment on above: Performed By: #### U DINA, LIPID, TSH, BNP, CMP, T7 #### [facility] [address] [address] [address] Suzie Brooks Creatinine [Mass/Vol] 0.99 mg/dL Normal 0.70-1.30 [facility] Comment on above: Performed By: #### U DINA, LIPID, TSH, BNP, CMP, T7 #### [facility] [address] [place] [address] Dr. Suzie Brooks EGFR-AF JAMAICAN >60 Normal >=60 [facility] Comment on above: Performed By: #### U DINA, LIPID, TSH, BNP, CMP, T7 #### [facility] [address] [place] [address] Dr. Suzie Brooks EGFR-NON AF JAMAICAN >60 Normal >=60 [facility] Comment on above: Performed By: #### U DINA, LIPID, TSH, BNP, CMP, T7 #### [facility] [address] [place] [address] Dr. Suzie Brooks Globulin (S) [Mass/Vol] 3.9 g/dL Normal [facility] Comment on above: Performed By: #### U DINA, LIPID, TSH, BNP, CMP, T7 #### [facility] [address] [place] [address] Dr. Suzie Brooks Glucose [Mass/Vol] 125 mg/dL Critically high 74-106 T [facility] Comment on above: Performed By: #### U DINA, LIPID, TSH, BNP, CMP, T7 #### [facility] [address] [place] [address] Dr. Suzie Brooks Potassium [Moles/Vol] 3.4 mmol/L Critically low 3.5-5.1 [facility] Comment on above: Performed By: #### U DINA, LIPID, TSH, BNP, CMP, T7 #### [facility] [address] [address] [address] Suzie Brooks Protein [Mass/Vol] 7.5 g/dL Normal 6.4-8.2 [facility] Comment on above: Performed By: #### U DINA, LIPID, TSH, BNP, CMP, T7 #### [facility] [address] [place] [address] Dr. Suzie Brooks Sodium [Moles/Vol] 135 mmol/L Critically low 136-145 Th [facility] Comment on above: Performed By: #### U DINA, LIPID, TSH, BNP, CMP, T7 #### [facility] [address] [place] [address] Dr. Suzie Brooks Urea nitrogen [Mass/Vol] 15.0 mg/dL Normal 7.0-18.0 [facility] Comment on above: Performed By: #### U DINA, LIPID, TSH, BNP, CMP, T7 #### [facility] [address] [place] [address] Dr. Suzie Brooks Urea nitrogen/Creatinine [Mass ratio] 15.2 mg/mg Normal [facility] Comment on above: Performed By: #### U DINA, LIPID, TSH, BNP, CMP, T7 #### [facility] [address] [place] [address] Dr. Suzie Brooks PROTIMEon 07-26-2022 INR Coag (PPP) [Relative time] 0.95 {INR} Normal [facility] Comment on above: Performed By: #### C VDTBH #### [facility] [address] [place] [address] [id number] [address] Suzie Brooks INR GUIDELINES SEE BELOW Normal [facility] Comment on above: Result Comment: TOMMY RED INR: 2.0 - 3.0 CONDITIONS NOT LISTED BELOW 2.5 - 3.5 FOR PROSTHETIC HEART VALVE REPLACEMENT 2.5 - 3.5 RECURRENT THROMBOSIS Performed By: #### C VDTBH #### [facility] [address] [address] [address] Suzie Brooks PT Coag (PPP) [Time] 10.3 s Normal 9.0-11.6 [facility] Comment on above: Performed By: #### C VDTBH #### [facility] [address] [place] [address] Dr. Suzie Brooks PTTon 07-26-2022 aPTT Coag (Bld) [Time] 28.2 s Normal 22.3-36.2 [facility] Comment on above: Performed By: #### C VDTBH #### [facility] [address] [place] [address] Dr. Suzie Brooks TSHon 07-26-2022 TSH 2.000 uIU/mL Normal 0.358-3.740 [facility] Comment on above: Performed By: #### O X24HR #### [facility] [address] [place] [address] [id number] [address] Suzie Brooks XR CHEST 1 Von [...] BEHZAD CARRASQUILLO Date: 2022-07-26 10:51 Normal [facility] CREATININEon 07-18-2022 Creatinine [Mass/Vol] 0.93 mg/dL Normal 0.70-1.30 [facility] Comment on above: Performed By: #### U DINA, LIPID, TSH, BNP, CMP, T7 #### [facility] [address] [place], [place] [address] Dr. Suzie Brooks EGFR-AF JAMAICAN >60 Normal >=60 [facility] Comment on above: Performed By: #### U DINA, LIPID, TSH, BNP, CMP, T7 #### [facility] [address] [place], [place] [address] Dr. Suzie Brooks EGFR-NON AF JAMAICAN >60 Normal >=60 [facility] Comment on above: Performed By: #### U DINA, LIPID, TSH, BNP, CMP, T7 #### [facility] [address] [address] [address] Suzie Brooks XR IVPon 07-18-2022 XR IVP EXAMINATION: XR IVP HISTORY: Kidney stone COMPARISON: XR KUB 11/21/2021, CT abdomen pelvis 02/16/2022 TECHNIQUE: After obtaining patient consent a farm crops teacher image was obtained followed by injection of [...] by: BEHZAD CARRASQUILLO Date: 2022-07-18 11:50 Normal [facility] INSULINon 05-16-2022 Insulin 59.0 uIU/mL Critically high 2.6-24.9 [facility] Comment on above: Performed By: #### U DINA, LIPID, TSH, BNP, CMP, T7 #### [facility] [address] [place] [address] Dr. Suzie Brooks BNPon 05-15-2022 Natriuretic peptide B (Bld) [Mass/Vol] 81.0 pg/mL Normal <=900.0 [facility] Comment on above: Performed By: #### U DINA, LIPID, TSH, BNP, CMP, T7 #### [facility] [address] [place] [address] Dr. Suzie Brooks CBC AUTO DIFFon 05-15-2022 BASO # 0.1 103/ul Normal 0.0-0.1 [facility] Comment on above: Performed By: #### C VDTBH #### [facility] [address] [place] [address] Dr. Suzie Brooks Basophils/100 WBC (Bld) 0.6 % Normal 0.2-2.0 [facility] Comment on above: Performed By: #### C VDTBH #### [facility] [address] [place] [address] Dr. Suzie Brooks EO # 0.3 103/ul Normal 0.0-0.7 [facility] Comment on above: Performed By: #### C VDTBH #### [facility] [address] [place] [address] Dr. Suzie Brooks Eosinophils/100 WBC (Bld) 2.9 % Normal 0.9-7.0 [facility] Comment on above: Performed By: #### C VDTBH #### [facility] [address] [place] [address] Dr. Suzie Brooks Erythrocyte distribution width (RBC) [Ratio] 14.1 % Normal 11.0-15.0 [facility] Comment on above: Performed By: #### C VDTBH #### [facility] [address] [place] [address] Dr. Suzie Brooks Hematocrit (Bld) [Volume fraction] 46.7 % Normal 42.0-54.0 [facility] Comment on above: Performed By: #### C VDTBH #### [facility] [address] [place] [address] Dr. Suzie Brooks Hemoglobin (Bld) [Mass/Vol] 15.4 g/dL Normal 14.0-18.0 [facility] Comment on above: Performed By: #### C VDTBH #### [facility] [address] [place] [address] Dr. Suzie Brooks IG # 0.03 10e3/ul Normal 0.00-0.03 [facility] Comment on above: Performed By: #### C VDTBH #### [facility] [address] [place] [address] Dr. Suzie Brooks IG % 0.3 % Normal 0.0-0.5 [facility] Comment on above: Performed By: #### C VDTBH #### [facility] [address] [place] [address] Dr. Suzie Brooks LYMPH # 2.6 103/ul Normal 1.2-3.8 [facility] Comment on above: Performed By: #### C VDTBH #### [facility] [address] [place] [address] Dr. Suzie Brooks Lymphocytes/100 WBC (Bld) 25.1 % Normal 20.5-60.0 [facility] Comment on above: Performed By: #### C VDTBH #### [facility] [address] [place] [address] Dr. Suzie Brooks MANUAL DIFF REQ NO Normal [facility] Comment on above: Performed By: #### C VDTBH #### [facility] [address] [place] [address] Dr. Suzie Brooks MCH (RBC) [Entitic mass] 28.6 pg Normal 25.9-34.0 [facility] Comment on above: Performed By: #### C VDTBH #### [facility] [address] [place] [address] Dr. Suzie Brooks MCHC (RBC) [Mass/Vol] 33.0 g/dL Normal 29.9-35.2 [facility] Comment on above: Performed By: #### C VDTBH #### [facility] [address] [place] [address] Dr. Suzie Brooks MCV (RBC) [Entitic vol] 86.8 fL Normal 80.0-94.0 [facility] Comment on above: Performed By: #### C VDTBH #### [facility] [address] [place] [address] Dr. Suzie Brooks MONO # 0.7 103/ul Normal 0.3-0.8 [facility] Comment on above: Performed By: #### C VDTBH #### [facility] [address] [place] [address] Dr. Suzie Brooks Monocytes/100 WBC (Bld) 6.8 % Normal 1.7-12.0 [facility] Comment on above: Performed By: #### C VDTBH #### [facility] [address] [place] [address] Dr. Suzie Brooks NEUT # 6.5 103/ul Normal 1.4-6.5 [facility] Comment on above: Performed By: #### C VDTBH #### [facility] [address] [place] [address] Dr. Suzie Brooks Neutrophils/100 WBC (Bld) 64.3 % Normal 43.0-75.0 [facility] Comment on above: Performed By: #### C VDTBH #### [facility] [address] [place] [address] Dr. Suzie Brooks Platelet mean volume (Bld) [Entitic vol] 9.5 fL Normal 9.5-13.5 [facility] Comment on above: Performed By: #### C VDTBH #### [facility] [address] [place] [address] Dr. Suzie Brooks PLT 273 103/ul Normal 150-450 [facility] Comment on above: Performed By: #### C VDTBH #### [facility] [address] [place] [address] Dr. Suzie Brooks RBC 5.38 106/ul Normal 4.70-6.10 [facility] Comment on above: Performed By: #### C VDTBH #### [facility] [address] [place] [address] Dr. Suzie Brooks WBC 10.2 103/ul Normal 4.0-11.0 [facility] Comment on above: Performed By: #### C VDTBH #### [facility] [address] [place] [address] Dr. Suzie Brooks FREE THYROXINE INDEX T7on FTI 2.23 Normal 1.30-4.50 [facility] Comment on above: Performed By: #### U DINA, LIPID, TSH, BNP, CMP, T7 #### [facility] [address] [place] [address] Dr. Suzie Brooks T3U 36.0 % Normal 33.0-40.0 [facility] Comment on above: Performed By: #### U DINA, LIPID, TSH, BNP, CMP, T7 #### [facility] [address] [place] [address] Dr. Suzie Brooks T4 [Mass/Vol] 6.20 ug/dL Normal 4.50-12.10 [facility] Comment on above: Performed By: #### U DINA, LIPID, TSH, BNP, CMP, T7 #### [facility] [address] [place] [address] Dr. Suzie Brooks GLYCOHEMOGLOBIN A1Con 2021 ADA RECOMMENDATION SEE BELOW Normal [facility] Comment on above: Result Comment: ADA RECOMMENDED LIMIT 4.0 - 6.0 ADA THERAPEUTIC TARGET < 7.0 ACTION SUGGESTED > 7.0 Performed By: #### U DINA, LIPID, TSH, BNP, CMP, T7 #### [facility] [address] [place] [address] Dr. Suzie Brooks Glucose [Mass/Vol] 111 mg/dL Normal [facility] Comment on above: Performed By: #### U DINA, LIPID, TSH, BNP, CMP, T7 #### [facility] [address] [place] [address] Dr. Suzie Brooks HbA1c (Bld) [Mass fraction] 5.5 % Normal 4.5-6.2 [facility] Comment on above: Performed By: #### U DINA, LIPID, TSH, BNP, CMP, T7 #### [facility] [address] [address] [address] Suzie Brooks LIPID PROFILEon 05-15-2022 CHOL-HDL RATIO NORM SEE BELOW Normal [facility] Comment on above: Result Comment: 3.3 - 4.4 LOW RISK 4.4 - 7.1 AVERAGE RISK 7.1 - 11.0 MODERATE RISK >11.0 HIGH RISK Performed By: #### U DINA, LIPID, TSH, BNP, CMP, T7 #### [facility] [address] [address] [address] Suzie Brooks Cholesterol [Mass/Vol] 136 mg/dL Normal <=200 [facility] Comment on above: Performed By: #### U DINA, LIPID, TSH, BNP, CMP, T7 #### [facility] [address] [address] [address] Suzie Brooks Cholesterol in HDL [Mass/Vol] 34 mg/dL Critically low 40-60 [facility] Comment on above: Performed By: #### U DINA, LIPID, TSH, BNP, CMP, T7 #### [facility] [address] [address] [address] Suzie Brooks Cholesterol in LDL [Mass/Vol] 49.8 mg/dL Normal [facility] Comment on above: Performed By: #### U DINA, LIPID, TSH, BNP, CMP, T7 #### [facility] [address] [address] [address] Suzie Brooks Cholesterol.total/Ch olesterol in HDL [Mass ratio] 4.0 {ratio} Normal [facility] Comment on above: Performed By: #### U DINA, LIPID, TSH, BNP, CMP, T7 #### [facility] [address] [place] [address] Dr. Suzie Brooks HDL NORMAL > or = 60 mg/dl - LO W CARDIOVASCULAR RISK <40 mg/dl - HIGH CARDIOVASCULAR RISK Normal [facility] Comment on above: Performed By: #### U DINA, LIPID, TSH, BNP, CMP, T7 #### [facility] [address] [address] [address] Suzie Brooks LDL CALC NORMAL SEE BELOW Normal [facility] Comment on above: Result Comment: <100 mg/dl OPTIMAL 100 - 129 mg/dl NEAR OR ABOVE OPTIMAL 130 - 159 mg/dl BORDERLINE HIGH 160 - 189 mg/dl HIGH >190 mg/dl VERY HIGH Performed By: #### U DINA, LIPID, TSH, BNP, CMP, T7 #### [facility] [address] [address] [address] Suzie Brooks Triglyceride [Mass/Vol] 261 mg/dL Critically high <=150 [facility] Comment on above: Performed By: #### U DINA, LIPID, TSH, BNP, CMP, T7 #### [facility] [address] [address] [address] Suzie Brooks VLDL CALC 52.2 mg/dL Normal [facility] Comment on above: Performed By: #### U DINA, LIPID, TSH, BNP, CMP, T7 #### [facility] [address] [address] [address] Suzie Brooks PROF 14(COMP METB)on 022 Albumin [Mass/Vol] 3.6 g/dL Normal 3.4-5.0 [facility] Comment on above: Performed By: #### U DINA, LIPID, TSH, BNP, CMP, T7 #### [facility] [address] [address] [address] Suzie Brooks Albumin/Globulin [Mass ratio] 0.9 {ratio} Normal [facility] Comment on above: Performed By: #### U DINA, LIPID, TSH, BNP, CMP, T7 #### [facility] [address] [address] [address] Suzie Brooks ALP [Catalytic activity/Vol] 60 U/L Normal 46-116 [facility] Comment on above: Performed By: #### U DINA, LIPID, TSH, BNP, CMP, T7 #### [facility] [address] [address] [address] Suzie Brooks ALT [Catalytic activity/Vol] 36 U/L Normal 16-63 [facility] Comment on above: Performed By: #### U DINA, LIPID, TSH, BNP, CMP, T7 #### [facility] [address] [address] [address] Suzie Brooks Anion gap [Moles/Vol] 11.7 mmol/L Normal [facility] Comment on above: Performed By: #### U DINA, LIPID, TSH, BNP, CMP, T7 #### [facility] [address] [address] [address] Suzie Brooks AST [Catalytic activity/Vol] 28 U/L Normal 15-37 [facility] Comment on above: Performed By: #### U DINA, LIPID, TSH, BNP, CMP, T7 #### [facility] [address] [place] [address] Dr. Suzie Brooks Bilirubin [Mass/Vol] 0.6 mg/dL Normal 0.2-1.0 [facility] Comment on above: Performed By: #### U DINA, LIPID, TSH, BNP, CMP, T7 #### [facility] [address] [place] [address] Dr. Suzie Brooks Calcium [Mass/Vol] 8.8 mg/dL Normal 8.5-10.1 [facility] Comment on above: Performed By: #### U DINA, LIPID, TSH, BNP, CMP, T7 #### [facility] [address] [place] [address] Dr. Suzie Brooks Chloride [Moles/Vol] 102 mmol/L Normal 98-107 [facility] Comment on above: Performed By: #### U DINA, LIPID, TSH, BNP, CMP, T7 #### [facility] [address] [place] [address] Dr. Suzie Brooks CO2 [Moles/Vol] 27.9 mmol/L Normal 21.0-32.0 [facility] Comment on above: Performed By: #### U DINA, LIPID, TSH, BNP, CMP, T7 #### [facility] [address] [place] [address] Dr. Suzie Brooks Creatinine [Mass/Vol] 0.98 mg/dL Normal 0.70-1.30 [facility] Comment on above: Performed By: #### U DINA, LIPID, TSH, BNP, CMP, T7 #### [facility] [address] [place] [address] Dr. Suzie Brooks EGFR-AF JAMAICAN >60 Normal >=60 [facility] Comment on above: Performed By: #### U DINA, LIPID, TSH, BNP, CMP, T7 #### [facility] [address] [place] [address] Dr. Suzie Brooks EGFR-NON AF JAMAICAN >60 Normal >=60 [facility] Comment on above: Performed By: #### U DINA, LIPID, TSH, BNP, CMP, T7 #### [facility] [address] [place] [address] Dr. Suzie Brooks Globulin (S) [Mass/Vol] 3.8 g/dL Normal [facility] Comment on above: Performed By: #### U DINA, LIPID, TSH, BNP, CMP, T7 #### [facility] [address] [address] [address] Suzie Brooks Glucose [Mass/Vol] 107 mg/dL Critically high 74-106 T [facility] Comment on above: Performed By: #### U DINA, LIPID, TSH, BNP, CMP, T7 #### [facility] [address] [place] [address] Dr. Suzie Brooks Potassium [Moles/Vol] 3.6 mmol/L Normal 3.5-5.1 [facility] Comment on above: Performed By: #### U DINA, LIPID, TSH, BNP, CMP, T7 #### [facility] [address] [place] [address] Dr. Suzie Brooks Protein [Mass/Vol] 7.4 g/dL Normal 6.4-8.2 [facility] Comment on above: Performed By: #### U DINA, LIPID, TSH, BNP, CMP, T7 #### [facility] [address] [place] [address] Dr. Suzie Brooks Sodium [Moles/Vol] 138 mmol/L Normal 136-145 [facility] Comment on above: Performed By: #### U DINA, LIPID, TSH, BNP, CMP, T7 #### [facility] [address] [address] [address] Suzie Brooks Urea nitrogen [Mass/Vol] 12.0 mg/dL Normal 7.0-18.0 [facility] Comment on above: Performed By: #### U DINA, LIPID, TSH, BNP, CMP, T7 #### [facility] [address] [address] [address] Suzie Brooks Urea nitrogen/Creatinine [Mass ratio] 12.2 mg/mg Normal [facility] Comment on above: Performed By: #### U DINA, LIPID, TSH, BNP, CMP, T7 #### [facility] [address] [place] [address] Dr. Suzie Brooks TSHon 05-15-2022 TSH 2.356 uIU/mL Normal 0.358-3.740 [facility] Comment on above: Performed By: #### U DINA, LIPID, TSH, BNP, CMP, T7 #### [facility] [address] [place] [address] Dr. Suzie Brooks URIC ACID SERUMon 05-15-2022 Urate [Mass/Vol] 5.2 mg/dL Normal 3.5-7.2 [facility] Comment on above: Performed By: #### U DINA, LIPID, TSH, BNP, CMP, T7 #### [facility] [address] [place] [address] Dr. Suzie Brooks CALCULI, URINARYon 2 2,8 Dihydroxyadenine Normal [facility] Comment on above: Performed By: #### U DINA, LIPID, TSH, BNP, CMP, T7 #### [facility] [address] [place] [address] Dr. Suzie Brooks Ammonium Acid Urate Normal [facility] Comment on above: Performed By: #### U DINA, LIPID, TSH, BNP, CMP, T7 #### [facility] [address] [address] [address] Suzie Brooks Bilirubin Ql (U) Normal [facility] Comment on above: Performed By: #### U DINA, LIPID, TSH, BNP, CMP, T7 #### [facility] [address] [address] [address] Suzie Brooks Ca Oxalate Dihydrate Normal [facility] Comment on above: Performed By: #### U DINA, LIPID, TSH, BNP, CMP, T7 #### [facility] [address] [address] [address] Suzie Brooks CaHPO4 (Brushite) Normal [facility] Comment on above: Performed By: #### U DINA, LIPID, TSH, BNP, CMP, T7 #### [facility] [address] [address] [address] Suzie Brooks Calcium Bilirubinate Normal [facility] Comment on above: Performed By: #### U DINA, LIPID, TSH, BNP, CMP, T7 #### [facility] [address] [address] [address] Suzie Brooks Calcium Carbonate Normal [facility] Comment on above: Performed By: #### U DINA, LIPID, TSH, BNP, CMP, T7 #### [facility] [address] [address] [address] Suzie Brooks Calcium Oxalate Monohydrate 70 % Normal [facility] Comment on above: Performed By: #### U DINA, LIPID, TSH, BNP, CMP, T7 #### [facility] [address] [address] [address] Suzie Brooks Calcium Palmitate Normal [facility] Comment on above: Performed By: #### U DINA, LIPID, TSH, BNP, CMP, T7 #### [facility] [address] [address] [address] Suzie Brooks Calcium Phosphate Normal [facility] Comment on above: Performed By: #### U IDNA, LIPID, TSH, BNP, CMP, T7 #### [facility] [address] [address] [address] Suzie Brooks Calcium Stearate Normal [facility] Comment on above: Performed By: #### U DINA, LIPID, TSH, BNP, CMP, T7 #### [facility] [address] [address] [address] Suzie Brooks Carbonate Apatite Normal [facility] Comment on above: Performed By: #### U DINA, LIPID, TSH, BNP, CMP, T7 #### [facility] [address] [address] [address] Suzie Brooks Cellular Material Normal [facility] Comment on above: Performed By: #### U DINA, LIPID, TSH, BNP, CMP, T7 #### [facility] [address] [address] [address] Suzie Brooks Cholesterol [facility] Comment on above: Performed By: #### U DINA, LIPID, TSH, BNP, CMP, T7 #### [facility] [address] [address] [address] Suzie Brooks Color (U) Brown [facility] Comment on above: Performed By: #### U DINA, LIPID, TSH, BNP, CMP, T7 #### [facility] [address] [address] [address] Suzie Brooks Comment [facility] Comment on above: Performed By: #### U DINA, LIPID, TSH, BNP, CMP, T7 #### [facility] [address] [address] [address] Suzie Brooks Comment Comment [facility] Comment on above: Result Comment: Calc ulus received in liquid. Wet calculi must be dried before analysis, which delays reporting of results. Leaving calculi in liquid (such as water, saline, blood, urine) may lead to changes in composition. Performed By: #### U DINA, LIPID, TSH, BNP, CMP, T7 #### [facility] [address] [address] [address] Suzie Brooks Comment: Comment [facility] Comment on above: Result Comment: Fantasma baez questions regarding Calculi Analysis contact [facility] at: [phone]. Performed By: #### U DINA, LIPID, TSH, BNP, CMP, T7 #### [facility] [address] [address] [address] Suzie Brooks Composition Comment [facility] Comment on above: Result Comment: Perc entage (Represents the % composition) Performed By: #### U DINA, LIPID, TSH, BNP, CMP, T7 #### [facility] [address] [address] [address] Suzie Brooks Cystine Normal [facility] Comment on above: Performed By: #### U DINA, LIPID, TSH, BNP, CMP, T7 #### [facility] [address] [address] [address] Suzie Brooks Disclaimer: Comment Normal [facility] Comment on above: Result Comment: This test was developed and its performance characteristics determined by [facility]. It has not been cleared or approved by the Food and Drug Administration. Performed By: #### U DINA, LIPID, TSH, BNP, CMP, T7 #### [facility] [address] [address] [address] Suzie Brooks Dried Blood [facility] Comment on above: Performed By: #### U DINA, LIPID, TSH, BNP, CMP, T7 #### [facility] [address] [address] [address] Suzie Brooks Drug or Metabolite Normal [facility] Comment on above: Performed By: #### U DINA, LIPID, TSH, BNP, CMP, T7 #### [facility] [address] [address] [address] Suzie Brooks Hydroxyapatite Normal [facility] Comment on above: Performed By: #### U DINA, LIPID, TSH, BNP, CMP, T7 #### [facility] [address] [address] [address] Suzie Brooks Mg NH4 PO4 (Struvite) [facility] Comment on above: Performed By: #### U DINA, LIPID, TSH, BNP, CMP, T7 #### [facility] [address] [address] [address] Suzie Brooks MgHPO4 (Newberyite) Normal [facility] Comment on above: Performed By: #### U DINA, LIPID, TSH, BNP, CMP, T7 #### [facility] [address] [address] [address] Suzie Brooks Other component(s) Normal [facility] Comment on above: Performed By: #### U DINA, LIPID, TSH, BNP, CMP, T7 #### [facility] [address] [address] [address] Suzie Brooks PDF . Normal [facility] Comment on above: Performed By: #### U DINA, LIPID, TSH, BNP, CMP, T7 #### [facility] [address] [address] [address] Suzie Brooks Photo Comment [facility] Comment on above: Result Comment: Luis prasad will follow under a separate cover Performed By: #### U DINA, LIPID, TSH, BNP, CMP, T7 #### [facility] [address] [address] [address] Suzie Brooks Please note: Comment [facility] Comment on above: Result Comment: Calc shamika report will follow via computer, mail or brickmason supervisor delivery. Performed By: #### U DINA, LIPID, TSH, BNP, CMP, T7 #### [facility] [address] [address] [address] Suzie Brooks Size 6x4 [facility] Comment on above: Result Comment: Mult iple pieces received. Dimensions of the largest piece reported. Performed By: #### U DINA, LIPID, TSH, BNP, CMP, T7 #### [facility] [address] [address] [address] Suzie Brooks Sodium Acid Urate Normal [facility] Comment on above: Performed By: #### U DINA, LIPID, TSH, BNP, CMP, T7 #### [facility] [address] [address] [address] Suzie Brooks Source Comment [facility] Comment on above: Result Comment: Not provided Performed By: #### U DINA, LIPID, TSH, BNP, CMP, T7 #### [facility] [address] [address] [address] Suzie Brooks Triamterene [facility] Comment on above: Performed By: #### U DINA, LIPID, TSH, BNP, CMP, T7 #### [facility] [address] [address] [address] Suzie Brooks Uric Acid 30 % [facility] Comment on above: Performed By: #### U DINA, LIPID, TSH, BNP, CMP, T7 #### [facility] [address] [address] [address] Suzie Brooks Uric Acid Dihydrate Normal [facility] Comment on above: Performed By: #### U DINA, LIPID, TSH, BNP, CMP, T7 #### [facility] [address] [address] [address] Suzie Brooks Weight 99 mg Normal [facility] Comment on above: Performed By: #### U DINA, LIPID, TSH, BNP, CMP, T7 #### [facility] [address] [place] [address] Dr. Suzie Brooks Xanthine [facility] Comment on above: Performed By: #### U DINA, LIPID, TSH, BNP, CMP, T7 #### [facility] [address] [place] [address] Dr. Suzie Brooks CBC AUTO DIFFon 02-18-2022 BASO # 0.0 103/ul Normal 0.0-0.1 [facility] Comment on above: Performed By: #### U DINA, LIPID, TSH, BNP, CMP, T7 #### [facility] [address] [address] [address] Suzie Brooks Basophils/100 WBC (Bld) 0.3 % Normal 0.2-2.0 [facility] Comment on above: Performed By: #### U DINA, LIPID, TSH, BNP, CMP, T7 #### [facility] [address] [address] [address] Suzie Brooks EO # 0.3 103/ul Normal 0.0-0.7 [facility] Comment on above: Performed By: #### U DINA, LIPID, TSH, BNP, CMP, T7 #### [facility] [address] [place] [address] Dr. Suzie Brooks Eosinophils/100 WBC (Bld) 2.3 % Normal 0.9-7.0 [facility] Comment on above: Performed By: #### U DINA, LIPID, TSH, BNP, CMP, T7 #### [facility] [address] [place] [address] Dr. Suzie Brooks Erythrocyte distribution width (RBC) [Ratio] 14.2 % Normal 11.0-15.0 [facility] Comment on above: Performed By: #### U DINA, LIPID, TSH, BNP, CMP, T7 #### [facility] [address] [place] [address] Dr. Suzie Brooks Hematocrit (Bld) [Volume fraction] 41.3 % Critically low 42.0-54.0 [facility] Comment on above: Performed By: #### U IDNA, LIPID, TSH, BNP, CMP, T7 #### [facility] [address] [place] [address] Dr. Suzie Brooks Hemoglobin (Bld) [Mass/Vol] 13.4 g/dL Critically low 14.0-18.0 [facility] Comment on above: Performed By: #### U DINA, LIPID, TSH, BNP, CMP, T7 #### [facility] [address] [place] [address] Dr. Suzie Brooks IG # 0.03 10e3/ul Normal 0.00-0.03 [facility] Comment on above: Performed By: #### U DINA, LIPID, TSH, BNP, CMP, T7 #### [facility] [address] [place] [address] Dr. Suzie Brooks IG % 0.3 % Normal 0.0-0.5 [facility] Comment on above: Performed By: #### U DINA, LIPID, TSH, BNP, CMP, T7 #### [facility] [address] [place] [address] Dr. Suzie Brooks LYMPH # 2.0 103/ul Normal 1.2-3.8 [facility] Comment on above: Performed By: #### U DINA, LIPID, TSH, BNP, CMP, T7 #### [facility] [address] [place] [address] Dr. Suzie Brooks Lymphocytes/100 WBC (Bld) 18.0 % Critically low 20.5-60.0 [facility] Comment on above: Performed By: #### U DINA, LIPID, TSH, BNP, CMP, T7 #### [facility] [address] [place] [address] Dr. Suzie Brooks MANUAL DIFF REQ NO Normal [facility] Comment on above: Performed By: #### U DINA, LIPID, TSH, BNP, CMP, T7 #### [facility] [address] [place] [address] Dr. Suzie Brooks MCH (RBC) [Entitic mass] 28.8 pg Normal 25.9-34.0 [facility] Comment on above: Performed By: #### U DINA, LIPID, TSH, BNP, CMP, T7 #### [facility] [address] [place] [address] Dr. Suzie Brooks MCHC (RBC) [Mass/Vol] 32.4 g/dL Normal 29.9-35.2 [facility] Comment on above: Performed By: #### U DNIA, LIPID, TSH, BNP, CMP, T7 #### [facility] [address] [place] [address] Dr. Suzie Brooks MCV (RBC) [Entitic vol] 88.6 fL Normal 80.0-94.0 [facility] Comment on above: Performed By: #### U DINA, LIPID, TSH, BNP, CMP, T7 #### [facility] [address] [place] [address] Dr. Suzie Brooks MONO # 1.0 103/ul Critically high 0.3-0.8 [facility] Comment on above: Performed By: #### U DINA, LIPID, TSH, BNP, CMP, T7 #### [facility] [address] [place] [address] Dr. Suzie Brooks Monocytes/100 WBC (Bld) 9.2 % Normal 1.7-12.0 [facility] Comment on above: Performed By: #### U DINA, LIPID, TSH, BNP, CMP, T7 #### [facility] [address] [place] [address] Dr. Suzie Brooks NEUT # 7.9 103/ul Critically high 1.4-6.5 [facility] Comment on above: Performed By: #### U DINA, LIPID, TSH, BNP, CMP, T7 #### [facility] [address] [address] [address] Suzie Brooks Neutrophils/100 WBC (Bld) 69.9 % Normal 43.0-75.0 [facility] Comment on above: Performed By: #### U DINA, LIPID, TSH, BNP, CMP, T7 #### [facility] [address] [address] [address] Suzie Brooks Platelet mean volume (Bld) [Entitic vol] 9.6 fL Normal 9.5-13.5 [facility] Comment on above: Performed By: #### U DINA, LIPID, TSH, BNP, CMP, T7 #### [facility] [address] [address] [address] Suzie Brooks PLT 218 103/ul Normal 150-450 [facility] Comment on above: Performed By: #### U DINA, LIPID, TSH, BNP, CMP, T7 #### [facility] [address] [place] [address] Dr. Suzie Brooks RBC 4.66 106/ul Critically low 4.70-6.10 [facility] Comment on above: Performed By: #### U DINA, LIPID, TSH, BNP, CMP, T7 #### [facility] [address] [address] [address] Suzie Brooks WBC 11.3 103/ul Critically high 4.0-11.0 [facility] Comment on above: Performed By: #### U DINA, LIPID, TSH, BNP, CMP, T7 #### [facility] [address] [place] [address] Dr. Suzie Brooks CULTURE URINEon 02-18-2022 CULTURE URINE Culture Observations : NO GROWTH. Normal [facility] Comment on above: Performed By: #### M AG24 #### [facility] [address] [place] [address] Dr. Suzie Brooks [facility] SARS-CoV-2 (COVID-19) RNA SUKHJINDER+probe Ql (Unsp spec) Not detected Normal NOT DETECTED [facility] Comment on above: Result Comment: When diagnostic [...] for this test is supported by the [place] of Health and Human Service's declaration that [...] used). Performed By: #### C VDTB #### [facility] [address] [place] [address] Dr. Suzie Brooks PROF 14(COMP METB)on 022 Albumin [Mass/Vol] 3.0 g/dL Critically low 3.4-5.0 [facility] Comment on above: Performed By: #### O X24HR #### [facility] [address] [place] [address] Dr. Suzie Brooks Albumin/Globulin [Mass ratio] 0.9 {ratio} Normal [facility] Comment on above: Performed By: #### O X24HR #### [facility] [address] [place] [address] Dr. Suzie Brooks ALP [Catalytic activity/Vol] 49 U/L Normal 46-116 [facility] Comment on above: Performed By: #### O X24HR #### [facility] [address] [place] [address] Dr. Suzie Brooks ALT [Catalytic activity/Vol] 35 U/L Normal 16-63 [facility] Comment on above: Performed By: #### O X24HR #### [facility] [address] [place] [address] Dr. Suzie Brooks Anion gap [Moles/Vol] 11.8 mmol/L Normal [facility] Comment on above: Performed By: #### O X24HR #### [facility] [address] [address] [address] Suzie Brooks AST [Catalytic activity/Vol] 27 U/L Normal 15-37 [facility] Comment on above: Performed By: #### O X24HR #### [facility] [address] [address] [address] Suzie Brooks Bilirubin [Mass/Vol] 0.4 mg/dL Normal 0.2-1.0 [facility] Comment on above: Performed By: #### O X24HR #### [facility] [address] [address] [address] Suzie Brooks Calcium [Mass/Vol] 7.6 mg/dL Critically low 8.5-10.1 [facility] Comment on above: Performed By: #### O X24HR #### [facility] [address] [place] [address] Dr. Suzie Brooks Chloride [Moles/Vol] 106 mmol/L Normal 98-107 [facility] Comment on above: Performed By: #### O X24HR #### [facility] [address] [place] [address] Dr. Suzie Brooks CO2 [Moles/Vol] 26.2 mmol/L Normal 21.0-32.0 [facility] Comment on above: Performed By: #### O X24HR #### [facility] [address] [place] [address] Dr. Suzie Brooks Creatinine [Mass/Vol] 1.08 mg/dL Normal 0.70-1.30 [facility] Comment on above: Performed By: #### O X24HR #### [facility] [address] [place] [address] Dr. Suzie Brooks EGFR-AF JAMAICAN >60 Normal >=60 [facility] Comment on above: Performed By: #### O X24HR #### [facility] [address] [place] [address] Dr. Suzie Brooks EGFR-NON AF JAMAICAN >60 Normal >=60 [facility] Comment on above: Performed By: #### O X24HR #### [facility] [address] [address] [address] Suzie Brooks Globulin (S) [Mass/Vol] 3.2 g/dL Normal [facility] Comment on above: Performed By: #### O X24HR #### [facility] [address] [address] [address] Suzie Brooks Glucose [Mass/Vol] 107 mg/dL Critically high 74-106 [facility] Comment on above: Performed By: #### O X24HR #### [facility] [address] [place] [address] Dr. Suzie Brooks Potassium [Moles/Vol] 4.0 mmol/L Normal 3.5-5.1 [facility] Comment on above: Performed By: #### O X24HR #### [facility] [address] [place] [address] Dr. Suzie Brooks Protein [Mass/Vol] 6.2 g/dL Critically low 6.4-8.2 [facility] Comment on above: Performed By: #### O X24HR #### [facility] [address] [place] [address] Dr. Suzie Brooks Sodium [Moles/Vol] 140 mmol/L Normal 136-145 [facility] Comment on above: Performed By: #### O X24HR #### [facility] [address] [place] [address] Dr. Suzie Brooks Urea nitrogen [Mass/Vol] 14.0 mg/dL Normal 7.0-18.0 [facility] Comment on above: Performed By: #### O X24HR #### [facility] [address] [place] [address] Dr. Suzie Brooks Urea nitrogen/Creatinine [Mass ratio] 13.0 mg/mg Normal [facility] Comment on above: Performed By: #### O X24HR #### [facility] [address] [place] [address] Dr. Suzie Brooks CBC AUTO DIFFon 02-17-2022 BASO # 0.1 103/ul Normal 0.0-0.1 [facility] Comment on above: Performed By: #### M AG24 #### [facility] [address] [address] [address] Suzie Brooks Basophils/100 WBC (Bld) 0.4 % Normal 0.2-2.0 [facility] Comment on above: Performed By: #### M AG24 #### [facility] [address] [place] [address] Dr. Suzie Brooks EO # 0.3 103/ul Normal 0.0-0.7 [facility] Comment on above: Performed By: #### M AG24 #### [facility] [address] [place] [address] Dr. Suzie Brooks Eosinophils/100 WBC (Bld) 2.3 % Normal 0.9-7.0 [facility] Comment on above: Performed By: #### M AG24 #### [facility] [address] [place] [address] Dr. Suzie Brooks Erythrocyte distribution width (RBC) [Ratio] 13.8 % Normal 11.0-15.0 [facility] Comment on above: Performed By: #### M AG24 #### [facility] [address] [place] [address] Dr. Suzie Brooks Hematocrit (Bld) [Volume fraction] 45.2 % Normal 42.0-54.0 [facility] Comment on above: Performed By: #### M AG24 #### [facility] [address] [place] [address] Dr. Suzie Brooks Hemoglobin (Bld) [Mass/Vol] 14.9 g/dL Normal 14.0-18.0 [facility] Comment on above: Performed By: #### M AG24 #### [facility] [address] [place] [address] Dr. Suzie Brooks IG # 0.05 10e3/ul Critically high 0.00-0.03 [facility] Comment on above: Performed By: #### M AG24 #### [facility] [address] [place] [address] Dr. Suzie Brooks IG % 0.4 % Normal 0.0-0.5 [facility] Comment on above: Performed By: #### M AG24 #### [facility] [address] [address] [address] Suzie Brooks LYMPH # 2.5 103/ul Normal 1.2-3.8 [facility] Comment on above: Performed By: #### M AG24 #### [facility] [address] [address] [address] Suzie Brooks Lymphocytes/100 WBC (Bld) 17.3 % Critically low 20.5-60.0 [facility] Comment on above: Performed By: #### M AG24 #### [facility] [address] [address] [address] Suzie Brooks MANUAL DIFF REQ NO Normal [facility] Comment on above: Performed By: #### M AG24 #### [facility] [address] [place] [address] Dr. Suzie Brooks MCH (RBC) [Entitic mass] 28.7 pg Normal 25.9-34.0 [facility] Comment on above: Performed By: #### M AG24 #### [facility] [address] [address] [address] Suzie Brooks MCHC (RBC) [Mass/Vol] 33.0 g/dL Normal 29.9-35.2 [facility] Comment on above: Performed By: #### M AG24 #### [facility] [address] [address] [address] Suzie Brooks MCV (RBC) [Entitic vol] 87.1 fL Normal 80.0-94.0 [facility] Comment on above: Performed By: #### M AG24 #### [facility] [address] [address] [address] Suzie Brooks MONO # 1.0 103/ul Critically high 0.3-0.8 [facility] Comment on above: Performed By: #### M AG24 #### [facility] [address] [address] [address] Suzie Brooks Monocytes/100 WBC (Bld) 6.8 % Normal 1.7-12.0 [facility] Comment on above: Performed By: #### M AG24 #### [facility] [address] [place] [address] Dr. Suzie Brooks NEUT # 10.3 103/ul Critically high 1.4-6.5 [facility] Comment on above: Performed By: #### M AG24 #### [facility] [address] [place] [address] Dr. Suzie Brooks Neutrophils/100 WBC (Bld) 72.8 % Normal 43.0-75.0 [facility] Comment on above: Performed By: #### M AG24 #### [facility] [address] [place] [address] Dr. Suzie Brooks Platelet mean volume (Bld) [Entitic vol] 9.7 fL Normal 9.5-13.5 [facility] Comment on above: Performed By: #### M AG24 #### [facility] [address] [place] [address] Dr. Suzie Brooks PLT 253 103/ul Normal 150-450 [facility] Comment on above: Performed By: #### M AG24 #### [facility] [address] [place] [address] Dr. Suzie Brooks RBC 5.19 106/ul Normal 4.70-6.10 [facility] Comment on above: Performed By: #### M AG24 #### [facility] [address] [place] [address] Dr. Suzie Brooks WBC 14.2 103/ul Critically high 4.0-11.0 [facility] Comment on above: Performed By: #### M AG24 #### [facility] [address] [place] [address] Dr. Suzie Brooks CULTURE BLOODon 02-17-2022 Microscopic examination of blood, culture Culture Observations: NO GROWTH AT 5 DAYS. Normal [facility] Comment on above: Performed By: #### M AG24 #### [facility] [address] [place] [address] Dr. Suzie Brooks Microscopic examination of blood, culture Culture Observations: NO GROWTH AT 5 DAYS. Normal [facility] Comment on above: Performed By: #### M AG24 #### [facility] [address] [place] [address] Dr. Suzie Brooks ER URINE PROFILEon 2 Bilirubin Ql (U) Negative Normal NEGATIVE [facility] Comment on above: Performed By: #### E RUR #### [facility] [address] [place] [address] Dr. Suzie Brooks Clarity (U) CLEAR Normal CLEAR [facility] Comment on above: Performed By: #### E RUR #### [facility] [address] [place] [address] Dr. Suzie Brooks Color (U) DK. YELLOW Normal YELLOW [facility] Comment on above: Performed By: #### E RUR #### [facility] [address] [place] [address] Dr. Suzie ESTEBAN A micrscopic examina tion will be performed if indicated. Normal [facility] Comment on above: Performed By: #### E RUR #### [facility] [address] [place] [address] Dr. Suzie Brooks Glucose Ql (U) Negative Normal NEGATIVE [facility] Comment on above: Performed By: #### E RUR #### [facility] [address] [place] [address] Dr. Suzie Brooks Hemoglobin Ql (U) Negative Normal NEGATIVE [facility] Comment on above: Performed By: #### E RUR #### [facility] [address] [place] [address] Dr. Suzie Brooks Ketones Ql (U) Negative Normal NEGATIVE [facility] Comment on above: Performed By: #### E RUR #### [facility] [address] [place] [address] Dr. Suzie Brooks LEUKOCYTES Negative Normal NEGATIVE [facility] Comment on above: Performed By: #### E RUR #### [facility] [address] [place] [address] Dr. Suzie Brooks Nitrite Ql (U) Negative Normal NEGATIVE [facility] Comment on above: Performed By: #### E RUR #### [facility] [address] [address] [address] Suzie Brooks pH (U) 5.0 [pH] Normal 5-9 [facility] Comment on above: Performed By: #### E RUR #### [facility] [address] [place] [address] Dr. Suzie Brooks SPEC GRAVITY >=1.030 Abnormal 1.005-<=1.02 5 [facility] Comment on above: Performed By: #### E RUR #### [facility] [address] [place] [address] Dr. Suzie Brooks UA PROTEIN Negative Normal NEGATIVE/ TRACE [facility] Comment on above: Performed By: #### E RUR #### [facility] [address] [place] [address] Dr. Suzie Brooks UR MICRO IND NOT INDICATED Normal [facility] Comment on above: Performed By: #### E RUR #### [facility] [address] [place] [address] Dr. Suzie Brooks Urobilinogen Qn (U) 0.2 {Behzad'U}/dL Normal 0.2 - 1. 0 [facility] Comment on above: Performed By: #### E RUR #### [facility] [address] [place] [address] Dr. Suzie Brooks LACTATE/LACTIC ACIDon 2021 Lactate [Moles/Vol] 1.4 mmol/L Normal 0.4-1.9 [facility] Comment on above: Performed By: #### U DINA, LIPID, TSH, BNP, CMP, T7 #### [facility] [address] [place] [address] Dr. Suzie Brooks PROF CHEM 8 (BAS METB)on Anion gap [Moles/Vol] 12.2 mmol/L Normal [facility] Comment on above: Performed By: #### U DINA, LIPID, TSH, BNP, CMP, T7 #### [facility] [address] [place] [address] Dr. Suzie Brooks Calcium [Mass/Vol] 8.1 mg/dL Critically low 8.5-10.1 [facility] Comment on above: Performed By: #### U DINA, LIPID, TSH, BNP, CMP, T7 #### [facility] [address] [address] [address] Suzie Brooks Chloride [Moles/Vol] 103 mmol/L Normal 98-107 [facility] Comment on above: Performed By: #### U DINA, LIPID, TSH, BNP, CMP, T7 #### [facility] [address] [address] [address] Suzie Brooks CO2 [Moles/Vol] 26.1 mmol/L Normal 21.0-32.0 [facility] Comment on above: Performed By: #### U DINA, LIPID, TSH, BNP, CMP, T7 #### [facility] [address] [address] [address] Suzie Brooks Creatinine [Mass/Vol] 1.06 mg/dL Normal 0.70-1.30 [facility] Comment on above: Performed By: #### U DINA, LIPID, TSH, BNP, CMP, T7 #### [facility] [address] [address] [address] Suzie Brooks EGFR-AF JAMAICAN >60 Normal >=60 [facility] Comment on above: Performed By: #### U DINA, LIPID, TSH, BNP, CMP, T7 #### [facility] [address] [place] [address] Dr. Suzie Brooks EGFR-NON AF [place] >60 Normal >=60 [facility] Comment on above: Performed By: #### U DINA, LIPID, TSH, BNP, CMP, T7 #### [facility] [address] [address] [address] Suzie Brooks Glucose [Mass/Vol] 138 mg/dL Critically high 74-106 T [facility] Comment on above: Performed By: #### U DINA, LIPID, TSH, BNP, CMP, T7 #### [facility] [address] [address] [address] Suzie Brooks Potassium [Moles/Vol] 4.3 mmol/L Normal 3.5-5.1 [facility] Comment on above: Performed By: #### U DINA, LIPID, TSH, BNP, CMP, T7 #### [facility] [address] [address] [address] Suzie Brooks Sodium [Moles/Vol] 137 mmol/L Normal 136-145 [facility] Comment on above: Performed By: #### U DINA, LIPID, TSH, BNP, CMP, T7 #### [facility] [address] [address] [address] Suzie Brooks Urea nitrogen [Mass/Vol] 14.0 mg/dL Normal 7.0-18.0 [facility] Comment on above: Performed By: #### U DINA, LIPID, TSH, BNP, CMP, T7 #### [facility] [address] [address] [address] Suzie Brooks Urea nitrogen/Creatinine [Mass ratio] 13.2 mg/mg Normal [facility] Comment on above: Performed By: #### U DINA, LIPID, TSH, BNP, CMP, T7 #### [facility] [address] [place] [address] Dr. Suzie Brooks TROPONIN, HIGH SENSITIVITYon 02-17-2022 HSTROP 8.4 pg/mL Normal 4.0-76.1 [facility] Comment on above: Result Comment: CUT- OFF POINTS HAVE BEEN ESTABLISHED BASED ON THE FOURTH UNIVERSAL DEFINITIONS OF MYOCARDIAL INFARCTION. THE UPPER REFERENCE LIMIT (URL) OF TROPONIN, DEFINED THE 99TH PERCENTILE OF cTnI DISTRIBUTION IN A REFERENCE POPULATION, HAS BEEN CONFIRMED THE DECISION THRESHOLD FOR LA DIAGNOSIS. Performed By: #### U DINA, LIPID, TSH, BNP, CMP, T7 #### [facility] [address] [place] [address] Dr. Suzie Brooks CBC AUTO DIFFon 02-16-2022 BASO # 0.1 103/ul Normal 0.0-0.1 [facility] Comment on above: Performed By: #### U DINA, LIPID, TSH, BNP, CMP, T7 #### [facility] [address] [place] [address] Dr. Suzie Brooks Basophils/100 WBC (Bld) 0.4 % Normal 0.2-2.0 [facility] Comment on above: Performed By: #### U DINA, LIPID, TSH, BNP, CMP, T7 #### [facility] [address] [address] [address] Suzie Brooks EO # 0.3 103/ul Normal 0.0-0.7 [facility] Comment on above: Performed By: #### U DINA, LIPID, TSH, BNP, CMP, T7 #### [facility] [address] [place] [address] Dr. Suzie Brooks Eosinophils/100 WBC (Bld) 2.5 % Normal 0.9-7.0 [facility] Comment on above: Performed By: #### U DINA, LIPID, TSH, BNP, CMP, T7 #### [facility] [address] [place] [address] Dr. Suzie Brooks Erythrocyte distribution width (RBC) [Ratio] 13.9 % Normal 11.0-15.0 [facility] Comment on above: Performed By: #### U DINA, LIPID, TSH, BNP, CMP, T7 #### [facility] [address] [place] [address] Dr. Suzie Brooks Hematocrit (Bld) [Volume fraction] 46.6 % Normal 42.0-54.0 [facility] Comment on above: Performed By: #### U DINA, LIPID, TSH, BNP, CMP, T7 #### [facility] [address] [place] [address] Dr. Suzie Brooks Hemoglobin (Bld) [Mass/Vol] 15.7 g/dL Normal 14.0-18.0 [facility] Comment on above: Performed By: #### U DINA, LIPID, TSH, BNP, CMP, T7 #### [facility] [address] [place] [address] Dr. Suzie Brooks IG # 0.05 10e3/ul Critically high 0.00-0.03 [facility] Comment on above: Performed By: #### U DINA, LIPID, TSH, BNP, CMP, T7 #### [facility] [address] [place] [address] Dr. Suzie Brooks IG % 0.4 % Normal 0.0-0.5 [facility] Comment on above: Performed By: #### U DINA, LIPID, TSH, BNP, CMP, T7 #### [facility] [address] [place] [address] Dr. Suzie Brooks LYMPH # 3.7 103/ul Normal 1.2-3.8 [facility] Comment on above: Performed By: #### U DINA, LIPID, TSH, BNP, CMP, T7 #### [facility] [address] [place] [address] Dr. Suzie Brooks Lymphocytes/100 WBC (Bld) 26.6 % Normal 20.5-60.0 [facility] Comment on above: Performed By: #### U DINA, LIPID, TSH, BNP, CMP, T7 #### [facility] [address] [place] [address] Dr. Suzie Brooks MANUAL DIFF REQ NO Normal [facility] Comment on above: Performed By: #### U DINA, LIPID, TSH, BNP, CMP, T7 #### [facility] [address] [place] [address] Dr. Suzie Brooks MCH (RBC) [Entitic mass] 29.2 pg Normal 25.9-34.0 [facility] Comment on above: Performed By: #### U DINA, LIPID, TSH, BNP, CMP, T7 #### [facility] [address] [place] [address] Dr. Suzie Brooks MCHC (RBC) [Mass/Vol] 33.7 g/dL Normal 29.9-35.2 [facility] Comment on above: Performed By: #### U DINA, LIPID, TSH, BNP, CMP, T7 #### [facility] [address] [place] [address] Dr. Suzie Brooks MCV (RBC) [Entitic vol] 86.6 fL Normal 80.0-94.0 [facility] Comment on above: Performed By: #### U DINA, LIPID, TSH, BNP, CMP, T7 #### [facility] [address] [place] [address] Dr. Suzie Brooks MONO # 1.0 103/ul Critically high 0.3-0.8 [facility] Comment on above: Performed By: #### U DINA, LIPID, TSH, BNP, CMP, T7 #### [facility] [address] [address] [address] Suzie Brooks Monocytes/100 WBC (Bld) 7.2 % Normal 1.7-12.0 [facility] Comment on above: Performed By: #### U DINA, LIPID, TSH, BNP, CMP, T7 #### [facility] [address] [address] [address] Suzie Brooks NEUT # 8.7 103/ul Critically high 1.4-6.5 [facility] Comment on above: Performed By: #### U DINA, LIPID, TSH, BNP, CMP, T7 #### [facility] [address] [address] [address] Suzie Brooks Neutrophils/100 WBC (Bld) 62.9 % Normal 43.0-75.0 [facility] Comment on above: Performed By: #### U DINA, LIPID, TSH, BNP, CMP, T7 #### [facility] [address] [address] [address] Suzie Brooks Platelet mean volume (Bld) [Entitic vol] 9.4 fL Critically low 9.5-13.5 [facility] Comment on above: Performed By: #### U DINA, LIPID, TSH, BNP, CMP, T7 #### [facility] [address] [place] [address] Dr. Suzie Brooks PLT 277 103/ul Normal 150-450 [facility] Comment on above: Performed By: #### U DINA, LIPID, TSH, BNP, CMP, T7 #### [facility] [address] [place] [address] Dr. Suzie Brooks RBC 5.38 106/ul Normal 4.70-6.10 [facility] Comment on above: Performed By: #### U DINA, LIPID, TSH, BNP, CMP, T7 #### [facility] [address] [address] [address] Suzie Brooks WBC 13.8 103/ul Critically high 4.0-11.0 [facility] Comment on above: Performed By: #### U DINA, LIPID, TSH, BNP, CMP, T7 #### [facility] [address] [address] [address] ABD/PELVIS WO CONon [...] Reilly CAST Date: 2022-02-16 20:51 Normal [facility] ER URINE PROFILEon 2 Bilirubin Ql (U) Negative Normal NEGATIVE [facility] Comment on above: Performed By: #### U DINA, LIPID, TSH, BNP, CMP, T7 #### [facility] [address] [address] [address] Suzie Brooks Clarity (U) CLEAR Normal CLEAR [facility] Comment on above: Performed By: #### U DINA, LIPID, TSH, BNP, CMP, T7 #### [facility] [address] [address] [address] Suzie Brooks Color (U) YELLOW Normal YELLOW [facility] Comment on above: Performed By: #### U DINA, LIPID, TSH, BNP, CMP, T7 #### [facility] [address] [address] [address] Suzie Brooks ERUAHD A micrscopic examina tion will be performed if indicated. Normal [facility] Comment on above: Performed By: #### U DINA, LIPID, TSH, BNP, CMP, T7 #### [facility] [address] [address] [address] Suzie Brooks Glucose Ql (U) Negative Normal NEGATIVE [facility] Comment on above: Performed By: #### U DINA, LIPID, TSH, BNP, CMP, T7 #### [facility] [address] [address] [address] Suzie Brooks Hemoglobin Ql (U) MODERATE Abnormal NEGATIVE [facility] Comment on above: Performed By: #### U DINA, LIPID, TSH, BNP, CMP, T7 #### [facility] [address] [address] [address] Suzie Brooks Ketones Ql (U) Negative Normal NEGATIVE [facility] Comment on above: Performed By: #### U DINA, LIPID, TSH, BNP, CMP, T7 #### [facility] [address] [address] [address] Suzie Brooks LEUKOCYTES Negative Normal NEGATIVE [facility] Comment on above: Performed By: #### U DINA, LIPID, TSH, BNP, CMP, T7 #### [facility] [address] [place] [address] Dr. Suzie Brooks Nitrite Ql (U) Negative Normal NEGATIVE [facility] Comment on above: Performed By: #### U DINA, LIPID, TSH, BNP, CMP, T7 #### [facility] [address] [place] [address] Dr. Suzie Brooks pH (U) 5.5 [pH] Normal 5-9 [facility] Comment on above: Performed By: #### U DINA, LIPID, TSH, BNP, CMP, T7 #### [facility] [address] [place] [address] Dr. Suzie Brooks SPEC GRAVITY >=1.030 Abnormal 1.005-<=1.02 5 [facility] Comment on above: Performed By: #### U DINA, LIPID, TSH, BNP, CMP, T7 #### [facility] [address] [place] [address] Dr. Suzie Brooks UA PROTEIN Negative Normal NEGATIVE/ TRACE [facility] Comment on above: Performed By: #### U DINA, LIPID, TSH, BNP, CMP, T7 #### [facility] [address] [place] [address] Dr. Suzie Brooks UR MICRO IND INDICATED Normal [facility] Comment on above: Performed By: #### U DINA, LIPID, TSH, BNP, CMP, T7 #### [facility] [address] [place] [address] Dr. Suzie Brooks Urobilinogen Qn (U) 0.2 {Behzad'U}/dL Normal 0.2 - 1. 0 [facility] Comment on above: Performed By: #### U DINA, LIPID, TSH, BNP, CMP, T7 #### [facility] [address] [place] [address] Dr. Suzie Brooks PROF CHEM 8 (BAS METB)on Anion gap [Moles/Vol] 12.2 mmol/L Normal [facility] Comment on above: Performed By: #### U DINA, LIPID, TSH, BNP, CMP, T7 #### [facility] [address] [address] [address] Suzie Brooks Calcium [Mass/Vol] 8.5 mg/dL Normal 8.5-10.1 [facility] Comment on above: Performed By: #### U DINA, LIPID, TSH, BNP, CMP, T7 #### [facility] [address] [address] [address] Suzie Brooks Chloride [Moles/Vol] 104 mmol/L Normal 98-107 [facility] Comment on above: Performed By: #### U DINA, LIPID, TSH, BNP, CMP, T7 #### [facility] [address] [place] [address] Dr. Suzie Brooks CO2 [Moles/Vol] 24.1 mmol/L Normal 21.0-32.0 [facility] Comment on above: Performed By: #### U DINA, LIPID, TSH, BNP, CMP, T7 #### [facility] [address] [address] [address] Suzie Brooks Creatinine [Mass/Vol] 1.14 mg/dL Normal 0.70-1.30 [facility] Comment on above: Performed By: #### U DINA, LIPID, TSH, BNP, CMP, T7 #### [facility] [address] [place] [address] Dr. Suzie Brooks EGFR-AF JAMAICAN >60 Normal >=60 [facility] Comment on above: Performed By: #### U DINA, LIPID, TSH, BNP, CMP, T7 #### [facility] [address] [place] [address] Dr. Suzie Brooks EGFR-NON AF JAMAICAN >60 Normal >=60 [facility] Comment on above: Performed By: #### U DINA, LIPID, TSH, BNP, CMP, T7 #### [facility] [address] [place] [address] Dr. Suzie Brooks Glucose [Mass/Vol] 114 mg/dL Critically high 74-106 [facility] Comment on above: Performed By: #### U DINA, LIPID, TSH, BNP, CMP, T7 #### [facility] [address] [address] [address] Suzie Brooks Potassium [Moles/Vol] 4.3 mmol/L Normal 3.5-5.1 [facility] Comment on above: Performed By: #### U DINA, LIPID, TSH, BNP, CMP, T7 #### [facility] [address] [address] [address] Suzie Brooks Sodium [Moles/Vol] 136 mmol/L Normal 136-145 [facility] Comment on above: Performed By: #### U DINA, LIPID, TSH, BNP, CMP, T7 #### [facility] [address] [place] [address] Dr. Suzie Brooks Urea nitrogen [Mass/Vol] 14.0 mg/dL Normal 7.0-18.0 [facility] Comment on above: Performed By: #### U DINA, LIPID, TSH, BNP, CMP, T7 #### [facility] [address] [place] [address] Dr. Suzie Brooks Urea nitrogen/Creatinine [Mass ratio] 12.3 mg/mg Normal [facility] Comment on above: Performed By: #### U DINA, LIPID, TSH, BNP, CMP, T7 #### [facility] [address] [place] [address] Dr. Suzie Brooks URINE MICROSCOPIC ONLYon BACTERIA NONE SEEN Normal NONE SEEN [facility] Comment on above: Performed By: #### U DINA, LIPID, TSH, BNP, CMP, T7 #### [facility] [address] [place] [address] Dr. Suzie Brooks Bacteria identified Cx Nom (U) NOT INDICATED Normal [facility] Comment on above: Performed By: #### U DINA, LIPID, TSH, BNP, CMP, T7 #### [facility] [address] [place] [address] Dr. Suzie Brooks CAST NONE SEEN Normal NONE SEEN [facility] Comment on above: Performed By: #### U DINA, LIPID, TSH, BNP, CMP, T7 #### [facility] [address] [address] [address] Suzie Brooks Crystals LM Nom (Urine sed) NONE SEEN Normal NONE SEEN [facility] Comment on above: Performed By: #### U DINA, LIPID, TSH, BNP, CMP, T7 #### [facility] [address] [address] [address] Suzie Brooks Epithelial cells LM Ql (Urine sed) RARE Normal NONE SEEN /RARE [facility] Comment on above: Performed By: #### U DINA, LIPID, TSH, BNP, CMP, T7 #### [facility] [address] [address] [address] Suzie Brooks MUCOUS NONE SEEN Normal NONE SEEN [facility] Comment on above: Performed By: #### U DINA, LIPID, TSH, BNP, CMP, T7 #### [facility] [address] [address] [address] Suzie Brooks RBC 5-10 Abnormal 0-2 [facility] Comment on above: Performed By: #### U DINA, LIPID, TSH, BNP, CMP, T7 #### [facility] [address] [address] [address] Suzie Brooks WBC NONE SEEN Normal NONE SEEN [facility] Comment on above: Performed By: #### U DINA, LIPID, TSH, BNP, CMP, T7 #### [facility] [address] [address] [address] Suzie Brooks CITRATE URINE 24HRon 02-05-2 022 Citric Acid, U, 24hr 1312 mg/24 hr Critically high 320-124 0 [facility] Comment on above: Result Comment: This test was developed and its performance characteristics determined by [facility]. It has not been cleared or approved by the Food and Drug Administration. Performed By: #### U DINA, LIPID, TSH, BNP, CMP, T7 #### [facility] [address] [address] [address] Suzie Brooks Citric Acid, Urine 610 mg/L Normal Undefined [facility] Comment on above: Performed By: #### U DINA, LIPID, TSH, BNP, CMP, T7 #### [facility] [address] [address] [address] Suzie Brooks OXALATE 24HR URINEon 022 Oxalates, Urine 11 mg/L Normal Undefined [facility] Comment on above: Performed By: #### O X24HR #### [facility] [address] [place] [address] Dr. Suzie Brooks Oxalates, Urine 24hr 24 mg/24 hr Normal 7-44 [facility] Comment on above: Performed By: #### O X24HR #### [facility] [address] [place] [address] Dr. Suzie Brooks MAGNESIUM 24HR URINEon 02-02 Magnesium 24hr Urine 77.4 mg/24 hr Normal 12.0-293.0 T [facility] Comment on above: Performed By: #### M AG24 #### [facility] [address] [place] [address] Dr. Suzie Brooks Magnesium UR 3.6 mg/dL Normal Not Estab. [facility] Comment on above: Performed By: #### M AG24 #### [facility] [address] [place] [address] Dr. Suzie Brooks PHOSPHORUS 24HR URINEon 01-10 Phosphorus, Urine 44.1 mg/dL Normal Not Estab. [facility] Comment on above: Performed By: #### U DINA, LIPID, TSH, BNP, CMP, T7 #### [facility] [address] [place] [address] Dr. Suzie Brooks Phosphorus, Urine 24hr 948 mg/24 hr Normal 390-1425 [facility] Comment on above: Performed By: #### U DINA, LIPID, TSH, BNP, CMP, T7 #### [facility] [address] [place] [address] Dr. Suzie Brooks URIC ACID 24 HR URINEon 01-10 Uric Acid, Urine 35.4 mg/dL Normal Not Estab. [facility] Comment on above: Performed By: #### U DINA, LIPID, TSH, BNP, CMP, T7 #### [facility] [address] [place] [address] Dr. Suzie Brooks Uric Acid, Urine 24hr 761.1 mg/24 hr Normal 182.4-936.8 [facility] Comment on above: Performed By: #### U DINA, LIPID, TSH, BNP, CMP, T7 #### [facility] [address] [address] [address] Suzie Brooks CALCIUM 24 HR URINEon 2021 CALC, 24 HR UR 187.0 mg/24 hr Normal 100.0-300.0 [facility] Comment on above: Performed By: #### U DINA, LIPID, TSH, BNP, CMP, T7 #### [facility] [address] [place] [address] Dr. Suzie Brooks UR CALCIUM 8.7 mg/dL Normal 5.1-21.0 [facility] Comment on above: Performed By: #### U DINA, LIPID, TSH, BNP, CMP, T7 #### [facility] [address] [place] [address] Dr. Suzie Brooks UR TOT VOL 2150 ml/24 HR Normal [facility] Comment on above: Performed By: #### U DINA, LIPID, TSH, BNP, CMP, T7 #### [facility] [address] [place] [address] Dr. Suzie Brooks CREA 24 HR URINEon 2 CREA, 24 HR UR 1983.59 mg/24 hr Normal 1,000.00- 2,0 00.00 [facility] Comment on above: Performed By: #### U DINA, LIPID, TSH, BNP, CMP, T7 #### [facility] [address] [place] [address] Dr. Suzie Brooks URINE CREAT 92.26 mg/dL Normal 20.00-300.00 [facility] Comment on above: Performed By: #### U DINA, LIPID, TSH, BNP, CMP, T7 #### [facility] [address] [place] [address] Dr. Suzie Brooks SODIUM 24 HR URINEon 02-01-2 022 NA, 24 HR UR 172 mmol/24 hr Normal 40-220 [facility] Comment on above: Performed By: #### U DINA, LIPID, TSH, BNP, CMP, T7 #### [facility] [address] [address] [address] Suzie Brooks Sodium (U) [Moles/Vol] 80 mmol/L Normal 30-90 [facility] Comment on above: Performed By: #### U DINA, LIPID, TSH, BNP, CMP, T7 #### [facility] [address] [place] [address] Dr. Suzie Brooks PTH INTACTon 01-31-2022 PTH, Intact 24 pg/mL Normal 15-65 [facility] Comment on above: Performed By: #### U DINA, LIPID, TSH, BNP, CMP, T7 #### [facility] [address] [address] [address] Suzie Brooks BUNon 01-30-2022 Urea nitrogen [Mass/Vol] 12.0 mg/dL Normal 7.0-18.0 [facility] Comment on above: Performed By: #### U DINA, LIPID, TSH, BNP, CMP, T7 #### [facility] [address] [place] [address] Dr. Suzie Brooks CALCIUMon 01-30-2022 Calcium [Mass/Vol] 8.6 mg/dL Normal 8.5-10.1 [facility] Comment on above: Performed By: #### U DINA, LIPID, TSH, BNP, CMP, T7 #### [facility] [address] [place] [address] Dr. Suzie Brooks CHLORIDEon 01-30-2022 Chloride [Moles/Vol] 104 mmol/L Normal 98-107 [facility] Comment on above: Performed By: #### U DINA, LIPID, TSH, BNP, CMP, T7 #### [facility] [address] [place] [address] Dr. Suzie Brooks CO2on 01-30-2022 CO2 [Moles/Vol] 29.3 mmol/L Normal 21.0-32.0 [facility] Comment on above: Performed By: #### U DINA, LIPID, TSH, BNP, CMP, T7 #### [facility] [address] [place] [address] Dr. Suzie Brooks CREATININEon 01-30-2022 Creatinine [Mass/Vol] 0.92 mg/dL Normal 0.70-1.30 [facility] Comment on above: Performed By: #### U DINA, LIPID, TSH, BNP, CMP, T7 #### [facility] [address] [place] [address] Dr. Suzie Brooks EGFR-AF JAMAICAN >60 Normal >=60 [facility] Comment on above: Performed By: #### U DINA, LIPID, TSH, BNP, CMP, T7 #### [facility] [address] [place] [address] Dr. Suzie Brooks EGFR-NON AF JAMAICAN >60 Normal >=60 [facility] Comment on above: Performed By: #### U DINA, LIPID, TSH, BNP, CMP, T7 #### [facility] [address] [place] [address] Dr. Suzie Brooks NAon 01-30-2022 Sodium [Moles/Vol] 140 mmol/L Normal 136-145 [facility] Comment on above: Performed By: #### U DINA, LIPID, TSH, BNP, CMP, T7 #### [facility] [address] [place] [address] Dr. Suzie Brooks POTASSIUMon 01-30-2022 Potassium [Moles/Vol] 4.0 mmol/L Normal 3.5-5.1 [facility] Comment on above: Performed By: #### U DINA, LIPID, TSH, BNP, CMP, T7 #### [facility] [address] [place] [address] Dr. Suzie Brooks URIC ACID SERUMon 01-30-2022 Urate [Mass/Vol] 5.2 mg/dL Normal 3.5-7.2 [facility] Comment on above: Performed By: #### U DINA, LIPID, TSH, BNP, CMP, T7 #### [facility] [address] [place] [address] Dr. Suzie Brooks US KIDNEYSon 12-18-2021 US [...] by: BEHZAD CARRASQUILLO Date: 2021-12-18 09:51 Normal [facility] XR KUB 1 VIEWon 11-21-2021 XR [...] by: BEHZAD CARRASQUILLO Date: 2021-11-21 09:45 Normal [facility] XR KUBon 11-15-2021 XR KUB [facility] [place] [address] [place] [address] XRay Report Signed Patient: Rizwan Aparicio MR#: [id number] 4 : 1950 Acct:[id number] Age/Sex: 71 / M ADM Date: 11/15/21 Loc: [place] Room: Type: [facility] Attending Dr: Micki Zeng MD Ordering Provider: Micki Zeng MD Date of Service: 11/15/21 XR/XR KUB: Ureteral Stone, Kidney stone Copies to: Micki Zeng MD Abdomen 11/15/2021. CLINICAL DATA: Kidney [...] Hancock Jr., M.D.11/15/2021 10:43 AM Dictation Location: [facility]- Transcribed By: [facility] 11/15/21 1043 Dictated By: Yared Hancock Jr, MD 11/15/21 1039 Signed By: 11/15/21 1043 Normal [facility] COVID-19 FRMCon 11-13-2021 SARS-CoV-2 (COVID-19) RNA SUKHJINDER+probe Ql (Unsp spec) Negative Normal Negative [facility] Comment on above: Order Comment: Healt hcare Worker?: N Result Comment: Testing for SARS-CoV-2 by RT-PCR This test was developed and its performance characteristics determined by [employer] ([employer] and validated at the [facility]. This test has not been FDA cleared [...] is terminated or revoked sooner. PERFORMED BY: [facility] [address] PATHOLOGIST [employer] REPAIRER JIA MINAYA M.D. Performed By: #### C OVID 19 [facility] #### [facility] [address] COVID-19 Positive/NegativeOr dered By: Micki Zeng on 11-13-2021 SARS-CoV-2 (COVID-19) N gene SUKHJINDER+probe Ql (Resp) Negative Negative [facility] Comment on above: Testing for SARS-CoV -2 by RT-PCRThis test was developed and its performance characteristics determined by [employer] ([employer] and validated at the [facility]. This test has not been FDA cleared [...] CALCULI, URINARYon 2 2,8 Dihydroxyadenine Normal [facility] Comment on above: Performed By: #### U DINA, LIPID, TSH, BNP, CMP, T7 #### [facility] [address] [place] [address] Dr. Suzie Brooks Ammonium Acid Urate Normal [facility] [facility] Comment on above: Performed By: #### U DINA, LIPID, TSH, BNP, CMP, T7 #### [facility] [address] [address] [address] Suzie Brooks Bilirubin Ql (U) Normal [facility] Comment on above: Performed By: #### U DINA, LIPID, TSH, BNP, CMP, T7 #### [facility] [address] [address] [address] Suzie Brooks Ca Oxalate Dihydrate Normal [facility] Comment on above: Performed By: #### U DINA, LIPID, TSH, BNP, CMP, T7 #### [facility] [address] [address] [address] Suzie Brooks CaHPO4 (Brushite) Normal [facility] Comment on above: Performed By: #### U DINA, LIPID, TSH, BNP, CMP, T7 #### [facility] [address] [address] [address] Suzie Brooks Calcium Bilirubinate [facility] Comment on above: Performed By: #### U DINA, LIPID, TSH, BNP, CMP, T7 #### [facility] [address] [address] [address] Suzie Brooks Calcium Carbonate [facility] Comment on above: Performed By: #### U DINA, LIPID, TSH, BNP, CMP, T7 #### [facility] [address] [address] [address] Suzie Brooks Calcium Oxalate Monohydrate 70 % [facility] Comment on above: Performed By: #### U DINA, LIPID, TSH, BNP, CMP, T7 #### [facility] [address] [address] [address] Suzie Brooks Calcium Palmitate [facility] Comment on above: Performed By: #### U DINA, LIPID, TSH, BNP, CMP, T7 #### [facility] [address] [address] [address] Suzie Brooks Calcium Phosphate Normal [facility] Comment on above: Performed By: #### U DINA, LIPID, TSH, BNP, CMP, T7 #### [facility] [address] [address] [address] Suzie Brooks Calcium Stearate Normal [facility] Comment on above: Performed By: #### U DINA, LIPID, TSH, BNP, CMP, T7 #### [facility] [address] [address] [address] Suzie Brooks Carbonate Apatite Normal [facility] Comment on above: Performed By: #### U DINA, LIPID, TSH, BNP, CMP, T7 #### [facility] [address] [address] [address] Suzie Brooks Cellular Material Normal [facility] Comment on above: Performed By: #### U DINA, LIPID, TSH, BNP, CMP, T7 #### [facility] [address] [address] [address] Suzie Brooks Cholesterol [facility] Comment on above: Performed By: #### U DINA, LIPID, TSH, BNP, CMP, T7 #### [facility] [address] [address] [address] Suzie Brooks Color (U) Brown [facility] Comment on above: Performed By: #### U DINA, LIPID, TSH, BNP, CMP, T7 #### [facility] [address] [address] [address] Suzie Brooks Comment [facility] Comment on above: Performed By: #### U DINA, LIPID, TSH, BNP, CMP, T7 #### [facility] [address] [address] [address] Suzie Brooks Comment: Comment Normal [facility] Comment on above: Result Comment: Phys ician questions regarding Calculi Analysis contact [facility] at: [phone]. Performed By: #### U DINA, LIPID, TSH, BNP, CMP, T7 #### [facility] [address] [address] [address] Suzie Brooks Composition Comment [facility] Comment on above: Result Comment: Perc entage (Represents the % composition) Performed By: #### U DINA, LIPID, TSH, BNP, CMP, T7 #### [facility] [address] [address] [address] Suzie Brooks Cystine [facility] Comment on above: Performed By: #### U DINA, LIPID, TSH, BNP, CMP, T7 #### [facility] [id number] Suzie Brooks Disclaimer: Comment [facility] Comment on above: Result Comment: This test was developed and its performance characteristics determined by [facility]. It has not been cleared or approved by the Food and Drug Administration. Performed By: #### U DINA, LIPID, TSH, BNP, CMP, T7 #### [facility] [address] [address] [address] Suzie Brooks Dried Blood Normal [facility] Comment on above: Performed By: #### U DINA, LIPID, TSH, BNP, CMP, T7 #### [facility] [address] [address] [address] Suzie Brooks Drug or Metabolite Normal [facility] Comment on above: Performed By: #### U DINA, LIPID, TSH, BNP, CMP, T7 #### [facility] [address] [address] [address] Suzie Brooks Hydroxyapatite Normal [facility] Comment on above: Performed By: #### U DINA, LIPID, TSH, BNP, CMP, T7 #### [facility] [address] [address] [address] Suzie Brooks Mg NH4 PO4 (Struvite) [facility] Comment on above: Performed By: #### U DINA, LIPID, TSH, BNP, CMP, T7 #### [facility] [address] [address] [address] Suize Brooks MgHPO4 (Newberyite) Normal [facility] Comment on above: Performed By: #### U DINA, LIPID, TSH, BNP, CMP, T7 #### [facility] [address] [address] [address] Suzie Brooks Other component(s) Normal [facility] Comment on above: Performed By: #### U DINA, LIPID, TSH, BNP, CMP, T7 #### [facility] [address] [address] [address] Suzie Brooks PDF . Normal [facility] Comment on above: Performed By: #### U DINA, LIPID, TSH, BNP, CMP, T7 #### [facility] [address] [address] [address] Suzie Brooks Photo Comment [facility] Comment on above: Result Comment: Phot ograph will follow under a separate cover Performed By: #### U DINA, LIPID, TSH, BNP, CMP, T7 #### [facility] [address] [address] [address] Suzie Brooks Please note: Comment Normal [facility] Comment on above: Result Comment: Calc shamika report will follow via computer, mail or brickmason supervisor delivery. Performed By: #### U DINA, LIPID, TSH, BNP, CMP, T7 #### [facility] [address] [address] [address] Suzie Brooks Size 3x2 Normal [facility] Comment on above: Result Comment: Mult iple pieces received. Dimensions of the largest piece reported. Performed By: #### U DINA, LIPID, TSH, BNP, CMP, T7 #### [facility] [address] [address] [address] Suzie Brooks Sodium Acid Urate Normal [facility] Comment on above: Performed By: #### U DINA, LIPID, TSH, BNP, CMP, T7 #### [facility] [address] [address] [address] Suzie Brooks Source Comment [facility] Comment on above: Result Comment: Jessica Reese Performed By: #### U DINA, LIPID, TSH, BNP, CMP, T7 #### [facility] [address] [address] [address] Suzie Brooks Triamterene [facility] Comment on above: Performed By: #### U DINA, LIPID, TSH, BNP, CMP, T7 #### [facility] [address] [address] [address] Suzie Brooks Uric Acid 30 % [facility] Comment on above: Performed By: #### U DINA, LIPID, TSH, BNP, CMP, T7 #### [facility] [address] [address] [address] Suzie Brooks Uric Acid Dihydrate Normal [facility] Comment on above: Performed By: #### U DINA, LIPID, TSH, BNP, CMP, T7 #### [facility] [address] [address] [address] Suzie Brooks Weight 12 mg Normal [facility] Comment on above: Performed By: #### U DINA, LIPID, TSH, BNP, CMP, T7 #### [facility] [address] [address] [address] Suzie Brooks Xanthine Normal [facility] Comment on above: Performed By: #### U DINA, LIPID, TSH, BNP, CMP, T7 #### [facility] [id number] Suzie Brooks XR KUB 1 VIEWon [...] by: RAFAEL GRAVES Date: 2021-11-12 13:18 Normal [facility] XR CHEST 2 Von 11-08-2021 XR [...] by: CARLOS GROSS Date: 2021-11-08 15:50 Normal [facility] CBC AUTO DIFFon 11-07-2021 BASO # 0.0 103/ul Normal 0.0-0.1 [facility] Comment on above: Performed By: #### U DINA, LIPID, TSH, BNP, CMP, T7 #### [facility] [address] [address] [address] Suzie Brooks Basophils/100 WBC (Bld) 0.2 % Normal 0.2-2.0 [facility] Comment on above: Performed By: #### U DINA, LIPID, TSH, BNP, CMP, T7 #### [facility] [address] [address] [address] Suzie Brooks EO # 0.0 103/ul Normal 0.0-0.7 [facility] Comment on above: Performed By: #### U DINA, LIPID, TSH, BNP, CMP, T7 #### [facility] [address] [place] [address] Dr. Suzie Brooks Eosinophils/100 WBC (Bld) 0.0 % Critically low 0.9-7.0 [facility] Comment on above: Performed By: #### U DINA, LIPID, TSH, BNP, CMP, T7 #### [facility] [address] [place] [address] Dr. Suzie Brooks Erythrocyte distribution width (RBC) [Ratio] 14.0 % Normal 11.0-15.0 [facility] Comment on above: Performed By: #### U DINA, LIPID, TSH, BNP, CMP, T7 #### [facility] [address] [place] [address] Dr. Suzie Brooks Hematocrit (Bld) [Volume fraction] 41.8 % Critically low 42.0-54.0 [facility] Comment on above: Performed By: #### U DINA, LIPID, TSH, BNP, CMP, T7 #### [facility] [address] [place] [address] Dr. Suzie Brooks Hemoglobin (Bld) [Mass/Vol] 13.7 g/dL Critically low 14.0-18.0 [facility] Comment on above: Performed By: #### U DINA, LIPID, TSH, BNP, CMP, T7 #### [facility] [address] [address] [address] Suzie Brooks IG # 0.14 10e3/ul Critically high 0.00-0.03 [facility] Comment on above: Performed By: #### U DINA, LIPID, TSH, BNP, CMP, T7 #### [facility] [address] [place] [address] Dr. Suzie Brooks IG % 0.9 % Critically high 0.0-0.5 [facility] [place] [facility] Comment on above: Performed By: #### U DINA, LIPID, TSH, BNP, CMP, T7 #### [facility] [address] [place] [address] Dr. Suzie Brooks LYMPH # 1.6 103/ul Normal 1.2-3.8 [facility] Comment on above: Performed By: #### U DINA, LIPID, TSH, BNP, CMP, T7 #### [facility] [address] [address] [address] Suzie Brooks Lymphocytes/100 WBC (Bld) 10.2 % Critically low 20.5-60.0 [facility] Comment on above: Performed By: #### U DINA, LIPID, TSH, BNP, CMP, T7 #### [facility] [address] [place] [address] Dr. Suzie Brooks MANUAL DIFF REQ NO Normal [facility] [place] [facility] Comment on above: Performed By: #### U DINA, LIPID, TSH, BNP, CMP, T7 #### [facility] [address] [place] [address] Dr. Suzie Brooks MCH (RBC) [Entitic mass] 28.8 pg Normal 25.9-34.0 [facility] Comment on above: Performed By: #### U DINA, LIPID, TSH, BNP, CMP, T7 #### [facility] [address] [place] [address] Dr. Suzie Brooks MCHC (RBC) [Mass/Vol] 32.8 g/dL Normal 29.9-35.2 [facility] Comment on above: Performed By: #### U DINA, LIPID, TSH, BNP, CMP, T7 #### [facility] [address] [place] [address] Dr. Suzie Brooks MCV (RBC) [Entitic vol] 87.8 fL Normal 80.0-94.0 [facility] Comment on above: Performed By: #### U DINA, LIPID, TSH, BNP, CMP, T7 #### [facility] [address] [place] [address] Dr. Suzie Brooks MONO # 1.0 103/ul Critically high 0.3-0.8 [facility] [place] [facility] Comment on above: Performed By: #### U DINA, LIPID, TSH, BNP, CMP, T7 #### [facility] [address] [address] [address] Suzie Brooks Monocytes/100 WBC (Bld) 6.6 % Normal 1.7-12.0 [facility] Comment on above: Performed By: #### U DINA, LIPID, TSH, BNP, CMP, T7 #### [facility] [address] [address] [address] Suzie Brooks NEUT # 13.0 103/ul Critically high 1.4-6.5 [facility] Comment on above: Performed By: #### U DINA, LIPID, TSH, BNP, CMP, T7 #### [facility] [address] [address] [address] Suzie Brooks Neutrophils/100 WBC (Bld) 82.1 % Critically high 43.0-75.0 [facility] Comment on above: Performed By: #### U DINA, LIPID, TSH, BNP, CMP, T7 #### [facility] [address] [address] [address] Suzie Brooks Platelet mean volume (Bld) [Entitic vol] 9.3 fL Critically low 9.5-13.5 [facility] Comment on above: Performed By: #### U DINA, LIPID, TSH, BNP, CMP, T7 #### [facility] [address] [address] [address] Suzie Brooks PLT 301 103/ul Normal 150-450 [facility] Comment on above: Performed By: #### U DINA, LIPID, TSH, BNP, CMP, T7 #### [facility] [address] [address] [address] Suzie Brooks RBC 4.76 106/ul Normal 4.70-6.10 [facility] Comment on above: Performed By: #### U DINA, LIPID, TSH, BNP, CMP, T7 #### [facility] [address] [address] [address] Suzie Brooks WBC 15.9 103/ul Critically high 4.0-11.0 [facility] Comment on above: Performed By: #### U DINA, LIPID, TSH, BNP, CMP, T7 #### [facility] [address] [place] [address] Dr. Suzie Brooks POINT OF CARE GLUCOSEon 10-11 Glucose [Mass/Vol] 128 mg/dL Critically high 74-106 T [facility] Comment on above: Performed By: #### U DINA, LIPID, TSH, BNP, CMP, T7 #### [facility] [address] [place] [address] Dr. Suzie Brooks PROF 14(COMP METB)on 022 Albumin [Mass/Vol] 3.1 g/dL Critically low 3.4-5.0 [facility] Comment on above: Performed By: #### M AG24 #### [facility] [address] [place] [address] Dr. Szuie Brooks Albumin/Globulin [Mass ratio] 0.9 {ratio} Normal [facility] Comment on above: Performed By: #### M AG24 #### [facility] [address] [place] [address] Dr. Suzie Brooks ALP [Catalytic activity/Vol] 52 U/L Normal 46-116 [facility] Comment on above: Performed By: #### M AG24 #### [facility] [address] [place] [address] Dr. Suzie Brooks ALT [Catalytic activity/Vol] 39 U/L Normal 16-63 [facility] Comment on above: Performed By: #### M AG24 #### [facility] [address] [place] [address] Dr. Suzie Brooks Anion gap [Moles/Vol] 14.7 mmol/L Normal [facility] Comment on above: Performed By: #### M AG24 #### [facility] [address] [place] [address] Dr. Suzie Brooks AST [Catalytic activity/Vol] 27 U/L Normal 15-37 [facility] Comment on above: Performed By: #### M AG24 #### [facility] [address] [place] [address] Dr. Suzie Brooks Bilirubin [Mass/Vol] 0.4 mg/dL Normal 0.2-1.3 [facility] Comment on above: Performed By: #### M AG24 #### [facility] [address] [place] [address] Dr. Suzie Brooks Calcium [Mass/Vol] 7.7 mg/dL Critically low 8.5-10.1 [facility] Comment on above: Performed By: #### M AG24 #### [facility] [address] [place] [address] Dr. Suzie Brooks Chloride [Moles/Vol] 104 mmol/L Normal 98-107 [facility] Comment on above: Performed By: #### M AG24 #### [facility] [address] [place] [address] Dr. Suzie Brooks CO2 [Moles/Vol] 23.4 mmol/L Normal 22.0-30.0 [facility] Comment on above: Performed By: #### M AG24 #### [facility] [address] [place] [address] Dr. Suzie Brooks Creatinine [Mass/Vol] 1.03 mg/dL Normal 0.66-1.25 [facility] Comment on above: Performed By: #### M AG24 #### [facility] [address] [place] [address] Dr. Suzie Brooks EGFR-AF JAMAICAN >60 Normal >=60 [facility] Comment on above: Performed By: #### M AG24 #### [facility] [address] [place] [address] Dr. Suzie Brooks EGFR-NON AF JAMAICAN >60 Normal >=60 [facility] Comment on above: Performed By: #### M AG24 #### [facility] [address] [place] [address] Dr. Suzie Brooks Globulin (S) [Mass/Vol] 3.5 g/dL Normal [facility] Comment on above: Performed By: #### M AG24 #### [facility] [address] [place] [address] Dr. Suzie Brooks Glucose [Mass/Vol] 142 mg/dL Critically high 74-106 T [facility] Comment on above: Performed By: #### M AG24 #### [facility] [address] [place] [address] Dr. Suzie Brooks Potassium [Moles/Vol] 4.1 mmol/L Normal 3.4-5.0 [facility] Comment on above: Performed By: #### M AG24 #### [facility] [address] [place] [address] Dr. Suzie Brooks Protein [Mass/Vol] 6.6 g/dL Normal 6.1-8.2 [facility] Comment on above: Performed By: #### M AG24 #### [facility] [address] [place] [address] Dr. Suzie Brooks Sodium [Moles/Vol] 138 mmol/L Normal 137-145 [facility] Comment on above: Performed By: #### M AG24 #### [facility] [address] [place] [address] Dr. Suzie Brooks Urea nitrogen [Mass/Vol] 15.0 mg/dL Normal 7.0-18.0 [facility] Comment on above: Performed By: #### M AG24 #### [facility] [address] [place] [address] Dr. Suzie Brooks Urea nitrogen/Creatinine [Mass ratio] 14.6 mg/mg Normal [facility] Comment on above: Performed By: #### M AG24 #### [facility] [address] [place] [address] Dr. Suzie Brooks CBC AUTO DIFFon 11-06-2021 BASO # 0.1 103/ul Normal 0.0-0.1 [facility] Comment on above: Performed By: #### U DINA, LIPID, TSH, BNP, CMP, T7 #### [facility] [address] [place] [address] Dr. Suzie Brooks Basophils/100 WBC (Bld) 0.5 % Normal 0.2-2.0 [facility] Comment on above: Performed By: #### U DINA, LIPID, TSH, BNP, CMP, T7 #### [facility] [address] [place] [address] Dr. Suzie Brooks EO # 0.3 103/ul Normal 0.0-0.7 [facility] Comment on above: Performed By: #### U DINA, LIPID, TSH, BNP, CMP, T7 #### [facility] [address] [place] [address] Dr. Suzie Brooks Eosinophils/100 WBC (Bld) 2.1 % Normal 0.9-7.0 [facility] Comment on above: Performed By: #### U DINA, LIPID, TSH, BNP, CMP, T7 #### [facility] [address] [place] [address] Dr. Suzie Brooks Erythrocyte distribution width (RBC) [Ratio] 13.8 % Normal 11.0-15.0 [facility] Comment on above: Performed By: #### U DINA, LIPID, TSH, BNP, CMP, T7 #### [facility] [address] [place] [address] Dr. Suzie Brooks Hematocrit (Bld) [Volume fraction] 46.9 % Normal 42.0-54.0 [facility] Comment on above: Performed By: #### U DINA, LIPID, TSH, BNP, CMP, T7 #### [facility] [address] [place] [address] Dr. Suzie Brooks Hemoglobin (Bld) [Mass/Vol] 15.4 g/dL Normal 14.0-18.0 [facility] Comment on above: Performed By: #### U DINA, LIPID, TSH, BNP, CMP, T7 #### [facility] [address] [place] [address] Dr. Suzie Brooks IG # 0.05 10e3/ul Critically high 0.00-0.03 [facility] Comment on above: Performed By: #### U DINA, LIPID, TSH, BNP, CMP, T7 #### [facility] [address] [place] [address] Dr. Suzie Brooks IG % 0.4 % Normal 0.0-0.5 [facility] Comment on above: Performed By: #### U DINA, LIPID, TSH, BNP, CMP, T7 #### [facility] [address] [address] [address] Suzie Brooks LYMPH # 2.8 103/ul Normal 1.2-3.8 [facility] Comment on above: Performed By: #### U DINA, LIPID, TSH, BNP, CMP, T7 #### [facility] [address] [place] [address] Dr. Suzie Brooks Lymphocytes/100 WBC (Bld) 22.5 % Normal 20.5-60.0 [facility] Comment on above: Performed By: #### U DINA, LIPID, TSH, BNP, CMP, T7 #### [facility] [address] [place] [address] Dr. Suzie Brooks MANUAL DIFF REQ NO Normal [facility] [place] [facility] Comment on above: Performed By: #### U DINA, LIPID, TSH, BNP, CMP, T7 #### [facility] [address] [place] [address] Dr. Suzie Brooks MCH (RBC) [Entitic mass] 28.6 pg Normal 25.9-34.0 [facility] Comment on above: Performed By: #### U DINA, LIPID, TSH, BNP, CMP, T7 #### [facility] [address] [place] [address] Dr. Suzie Brooks MCHC (RBC) [Mass/Vol] 32.8 g/dL Normal 29.9-35.2 [facility] Comment on above: Performed By: #### U DINA, LIPID, TSH, BNP, CMP, T7 #### [facility] [address] [place] [address] Dr. Suzie Brooks MCV (RBC) [Entitic vol] 87.0 fL Normal 80.0-94.0 [facility] Comment on above: Performed By: #### U DINA, LIPID, TSH, BNP, CMP, T7 #### [facility] [address] [place] [address] Dr. Suzie Brooks MONO # 0.9 103/ul Critically high 0.3-0.8 [facility] [place] [facility] Comment on above: Performed By: #### U DINA, LIPID, TSH, BNP, CMP, T7 #### [facility] [address] [address] [address] Suzie Brooks Monocytes/100 WBC (Bld) 6.9 % Normal 1.7-12.0 [facility] Comment on above: Performed By: #### U DINA, LIPID, TSH, BNP, CMP, T7 #### [facility] [address] [place] [address] Dr. Suzie Brooks NEUT # 8.4 103/ul Critically high 1.4-6.5 [facility] [place] [facility] Comment on above: Performed By: #### U DINA, LIPID, TSH, BNP, CMP, T7 #### [facility] [address] [place] [address] Dr. Suzie Brooks Neutrophils/100 WBC (Bld) 67.6 % Normal 43.0-75.0 [facility] Comment on above: Performed By: #### U DINA, LIPID, TSH, BNP, CMP, T7 #### [facility] [address] [place] [address] Dr. Suzie Brooks Platelet mean volume (Bld) [Entitic vol] 9.6 fL Normal 9.5-13.5 [facility] Comment on above: Performed By: #### U DINA, LIPID, TSH, BNP, CMP, T7 #### [facility] [address] [place] [address] Dr. Suzie Brooks PLT 284 103/ul Normal 150-450 [facility] Comment on above: Performed By: #### U DINA, LIPID, TSH, BNP, CMP, T7 #### [facility] [address] [place] [address] Dr. Suzie Brooks RBC 5.39 106/ul Normal 4.70-6.10 [facility] Comment on above: Performed By: #### U DINA, LIPID, TSH, BNP, CMP, T7 #### [facility] [address] [place] [address] Dr. Suzie Brooks WBC 12.5 103/ul Critically high 4.0-11.0 [facility] Comment on above: Performed By: #### U DINA, LIPID, TSH, BNP, CMP, T7 #### [facility] [address] [place], [place] [address] Dr. Suzie Brooks CULTURE BLOODon 11-06-2021 Microscopic examination of blood, culture Culture Observations: NO GROWTH AT 5 DAYS. Normal [facility] Comment on above: Performed By: #### M AG24 #### [facility] [address] [place], [place] [address] Dr. Suzie Brooks CULTURE URINEon 11-06-2021 CULTURE URINE Culture Observations : NO GROWTH. Normal [facility] Comment on above: Performed By: #### M AG24 #### [facility] [address] [place], [place] [address] Dr. Suzie Brooks Covid-19 PCR (CVDTB)on 10-10 SARS-CoV-2 (COVID-19) RNA SUKHJINDER+probe Ql (Unsp spec) Not detected Normal NOT DETECTED [facility] Comment on above: Result Comment: When diagnostic testing is negative, the possibility of a false negative should be considered in the context of a patient's recent exposures and the presence of clinical signs and symptoms consistent with SARS-CoV-2. This test is not yet approved or cleared by the [place] Food and Drug Administration (FDA). This test was developed by [employer], [place], [place]. The performance characteristics of this test were validated by [facility]. The results are not intended to be used as the sole means for clinical diagnosis or patient management decisions. The [facility] is authorized under Clinical Laboratory Improvement Amendments [...] for this test is supported by the [employer] of Health and Human Service's declaration [...] DINA, LIPID, TSH, BNP, CMP, T7 #### [facility] [address] [address] [address] Suzie Brooks ER URINE PROFILEon 2 Bilirubin Ql (U) Negative Normal NEGATIVE [facility] Comment on above: Performed By: #### U DINA, LIPID, TSH, BNP, CMP, T7 #### [facility] [address] [address] [address] Suzie Brooks Clarity (U) CLEAR Normal CLEAR [facility] Comment on above: Performed By: #### U DINA, LIPID, TSH, BNP, CMP, T7 #### [facility] [address] [address] [address] Suzie Brooks Color (U) YELLOW Normal YELLOW [facility] Comment on above: Performed By: #### U DINA, LIPID, TSH, BNP, CMP, T7 #### [facility] [address] [place] [address] Dr. Suzie Brooks ERURIP A micrscopic examina tion will be performed if indicated. Normal [facility] Comment on above: Performed By: #### U DINA, LIPID, TSH, BNP, CMP, T7 #### [facility] [address] [address] [address] Suzie Brooks Glucose Ql (U) Negative Normal NEGATIVE [facility] Comment on above: Performed By: #### U DINA, LIPID, TSH, BNP, CMP, T7 #### [facility] [address] [address] [address] Suzie Brooks Hemoglobin Ql (U) LARGE Abnormal NEGATIVE [facility] Comment on above: Performed By: #### U DINA, LIPID, TSH, BNP, CMP, T7 #### [facility] [address] [address] [address] Suzie Brooks Ketones Ql (U) Negative Normal NEGATIVE [facility] Comment on above: Performed By: #### U DINA, LIPID, TSH, BNP, CMP, T7 #### [facility] [address] [address] [address] Suzie Brooks LEUKOCYTES TRACE Abnormal NEGATIVE [facility] Comment on above: Performed By: #### U DINA, LIPID, TSH, BNP, CMP, T7 #### [facility] [address] [address] [address] Suzie Brooks Nitrite Ql (U) Negative Normal NEGATIVE [facility] Comment on above: Performed By: #### U DINA, LIPID, TSH, BNP, CMP, T7 #### [facility] [address] [place] [address] Dr. Suzie Brooks pH (U) 5.0 [pH] Normal 5-9 [facility] Comment on above: Performed By: #### U DINA, LIPID, TSH, BNP, CMP, T7 #### [facility] [address] [place] [address] Dr. Suzie Brooks Protein (U) [Mass/Vol] 100 mg/dL Abnormal NEGATIVE/ TRACE [facility] Comment on above: Performed By: #### U DINA, LIPID, TSH, BNP, CMP, T7 #### [facility] [address] [place] [address] Dr. Suzie Brooks SPEC GRAVITY 1.030 Abnormal 1.005-<=1.02 5 [facility] Comment on above: Performed By: #### U DINA, LIPID, TSH, BNP, CMP, T7 #### [facility] [address] [place] [address] Dr. Suzie Brooks UR MICRO IND INDICATED Normal [facility] Comment on above: Performed By: #### U DINA, LIPID, TSH, BNP, CMP, T7 #### [facility] [address] [place] [address] Dr. Suzie Brooks Urobilinogen Qn (U) 0.2 {Behzad'U}/dL Normal 0.2 - 1. 0 [facility] Comment on above: Performed By: #### U DINA, LIPID, TSH, BNP, CMP, T7 #### [facility] [address] [place] [address] Dr. Suzie Brooks LACTATE/LACTIC ACIDon 2021 Lactate [Moles/Vol] 1.0 mmol/L Normal 0.7-2.0 [facility] Comment on above: Performed By: #### U DINA, LIPID, TSH, BNP, CMP, T7 #### [facility] [address] [place] [address] Dr. Suzie Brooks PROF 14(COMP METB)on 022 Albumin [Mass/Vol] 3.8 g/dL Normal 3.4-5.0 [facility] Comment on above: Performed By: #### U DIAN, LIPID, TSH, BNP, CMP, T7 #### [facility] [address] [place] [address] Dr. Suzie Brooks Albumin/Globulin [Mass ratio] 1.0 {ratio} Normal [facility] Comment on above: Performed By: #### U DINA, LIPID, TSH, BNP, CMP, T7 #### [facility] [address] [place] [address] Dr. Suzie Brooks ALP [Catalytic activity/Vol] 66 U/L Normal 46-116 [facility] Comment on above: Performed By: #### U DINA, LIPID, TSH, BNP, CMP, T7 #### [facility] [address] [place] [address] Dr. Suzie Brooks ALT [Catalytic activity/Vol] 52 U/L Normal 16-63 [facility] Comment on above: Performed By: #### U DINA, LIPID, TSH, BNP, CMP, T7 #### [facility] [address] [place] [address] Dr. Suzie Brooks Anion gap [Moles/Vol] 14.7 mmol/L Normal [facility] Comment on above: Performed By: #### U DINA, LIPID, TSH, BNP, CMP, T7 #### [facility] [address] [place] [address] Dr. Suzie Brooks AST [Catalytic activity/Vol] 40 U/L Critically high 15-37 [facility] Comment on above: Performed By: #### U DINA, LIPID, TSH, BNP, CMP, T7 #### [facility] [address] [place] [address] Dr. Suzie Brooks Bilirubin [Mass/Vol] 0.6 mg/dL Normal 0.2-1.3 [facility] Comment on above: Performed By: #### U DINA, LIPID, TSH, BNP, CMP, T7 #### [facility] [address] [address] [address] Suzie Brooks Calcium [Mass/Vol] 8.2 mg/dL Critically low 8.5-10.1 [facility] Comment on above: Performed By: #### U DINA, LIPID, TSH, BNP, CMP, T7 #### [facility] [address] [address] [address] Suzie Brooks Chloride [Moles/Vol] 102 mmol/L Normal 98-107 [facility] Comment on above: Performed By: #### U DINA, LIPID, TSH, BNP, CMP, T7 #### [facility] [address] [place] [address] Dr. Suzie Brooks CO2 [Moles/Vol] 27.4 mmol/L Normal 22.0-30.0 [facility] Comment on above: Performed By: #### U DINA, LIPID, TSH, BNP, CMP, T7 #### [facility] [address] [place] [address] Dr. Suzie Brooks Creatinine [Mass/Vol] 1.05 mg/dL Normal 0.66-1.25 [facility] Comment on above: Performed By: #### U DINA, LIPID, TSH, BNP, CMP, T7 #### [facility] [address] [place] [address] Dr. Suzie Brooks EGFR-AF JAMAICAN >60 Normal >=60 [facility] Comment on above: Performed By: #### U DINA, LIPID, TSH, BNP, CMP, T7 #### [facility] [address] [place] [address] Dr. Suzie Brooks EGFR-NON AF JAMAICAN >60 Normal >=60 [facility] Comment on above: Performed By: #### U DINA, LIPID, TSH, BNP, CMP, T7 #### [facility] [address] [place] [address] Dr. Suzie Brooks Globulin (S) [Mass/Vol] 3.7 g/dL Normal [facility] Comment on above: Performed By: #### U DINA, LIPID, TSH, BNP, CMP, T7 #### [facility] [address] [address] [address] Suzie Brooks Glucose [Mass/Vol] 124 mg/dL Critically high 74-106 [facility] Comment on above: Performed By: #### U DINA, LIPID, TSH, BNP, CMP, T7 #### [facility] [address] [address] [address] Suzie Brooks Potassium [Moles/Vol] 4.1 mmol/L Normal 3.4-5.0 [facility] Comment on above: Performed By: #### U DINA, LIPID, TSH, BNP, CMP, T7 #### [facility] [address] [address] [address] Suzie Brooks Protein [Mass/Vol] 7.5 g/dL Normal 6.1-8.2 [facility] Comment on above: Performed By: #### U DINA, LIPID, TSH, BNP, CMP, T7 #### [facility] [address] [address] [address] Suzie Brooks Sodium [Moles/Vol] 140 mmol/L Normal 137-145 [facility] Comment on above: Performed By: #### U DINA, LIPID, TSH, BNP, CMP, T7 #### [facility] [address] [address] [address] Suzie Brooks Urea nitrogen [Mass/Vol] 16.0 mg/dL Normal 7.0-18.0 [facility] Comment on above: Performed By: #### U DINA, LIPID, TSH, BNP, CMP, T7 #### [facility] [address] [address] [address] Suzie Brooks Urea nitrogen/Creatinine [Mass ratio] 15.2 mg/mg Normal [facility] Comment on above: Performed By: #### U DINA, LIPID, TSH, BNP, CMP, T7 #### [facility] [address] [place] [address] Dr. Suzie Brooks URINE MICROSCOPIC ONLYon BACTERIA SMALL Abnormal NONE SEEN [facility] Comment on above: Performed By: #### U DINA, LIPID, TSH, BNP, CMP, T7 #### [facility] [address] [address] [address] Suzie Boroks Bacteria identified Cx Nom (U) INDICATED Normal [facility] Comment on above: Performed By: #### U DINA, LIPID, TSH, BNP, CMP, T7 #### [facility] [address] [place] [address] Dr. Suzie Brooks CAST NONE SEEN Normal NONE SEEN [facility] Comment on above: Performed By: #### U DINA, LIPID, TSH, BNP, CMP, T7 #### [facility] [address] [address] [address] Suzie Brooks Crystals LM Nom (Urine sed) NONE SEEN Normal NONE SEEN [facility] Comment on above: Performed By: #### U DINA, LIPID, TSH, BNP, CMP, T7 #### [facility] [address] [place] [address] Dr. Suzie Brooks Epithelial cells LM Ql (Urine sed) RARE Normal NONE SEEN /RARE [facility] Comment on above: Performed By: #### U DINA, LIPID, TSH, BNP, CMP, T7 #### [facility] [address] [place] [address] Dr. Suzie Brooks MUCOUS NONE SEEN Normal NONE SEEN [facility] Comment on above: Performed By: #### U DINA, LIPID, TSH, BNP, CMP, T7 #### [facility] [address] [place] [address] Dr. Suzie Brooks RBC 50-75 Abnormal 0-2 [facility] Comment on above: Performed By: #### U DINA, LIPID, TSH, BNP, CMP, T7 #### [facility] [address] [place] [address] Dr. Suzie Brooks WBC 20-50 Abnormal NONE SEEN [facility] Comment on above: Performed By: #### U DINA, LIPID, TSH, BNP, CMP, T7 #### [facility] [address] [place] [address] Dr. Suzie Brooks XR KUB 1 VIEWon [...] BEHZAD SANTOS Date: 2021-11-06 21:58 Normal [facility] XR KUB 1 VIEW EXAMINATION: XR KUB [...] RAFAEL GRAVES Date: 2021-11-06 08:06 Normal [facility] CBC AUTO DIFFon 11-05-2021 BASO # 0.1 103/ul Normal 0.0-0.1 [facility] Comment on above: Performed By: #### U DINA, LIPID, TSH, BNP, CMP, T7 #### [facility] [address] [place] [address] Dr. Suzie Brooks Basophils/100 WBC (Bld) 0.6 % Normal 0.2-2.0 [facility] Comment on above: Performed By: #### U DINA, LIPID, TSH, BNP, CMP, T7 #### [facility] [address] [address] [address] Suzie Brooks EO # 0.3 103/ul Normal 0.0-0.7 [facility] Comment on above: Performed By: #### U DINA, LIPID, TSH, BNP, CMP, T7 #### [facility] [address] [address] [address] Suzie Brooks Eosinophils/100 WBC (Bld) 2.2 % Normal 0.9-7.0 [facility] Comment on above: Performed By: #### U DINA, LIPID, TSH, BNP, CMP, T7 #### [facility] [address] [address] [address] Suzie Brooks Erythrocyte distribution width (RBC) [Ratio] 13.7 % Normal 11.0-15.0 [facility] Comment on above: Performed By: #### U DINA, LIPID, TSH, BNP, CMP, T7 #### [facility] [address] [address] [address] Suzie Brooks Hematocrit (Bld) [Volume fraction] 49.0 % Normal 42.0-54.0 [facility] Comment on above: Performed By: #### U DINA, LIPID, TSH, BNP, CMP, T7 #### [facility] [address] [place] [address] Dr. Suzie Brooks Hemoglobin (Bld) [Mass/Vol] 15.9 g/dL Normal 14.0-18.0 [facility] Comment on above: Performed By: #### U DINA, LIPID, TSH, BNP, CMP, T7 #### [facility] [address] [place] [address] Dr. Suzie Brooks IG # 0.07 10e3/ul Critically high 0.00-0.03 [facility] Comment on above: Performed By: #### U DINA, LIPID, TSH, BNP, CMP, T7 #### [facility] [address] [place] [address] Dr. Suzie Brooks IG % 0.5 % Normal 0.0-0.5 [facility] Comment on above: Performed By: #### U DINA, LIPID, TSH, BNP, CMP, T7 #### [facility] [address] [place] [address] Dr. Suzie Brooks LYMPH # 3.1 103/ul Normal 1.2-3.8 [facility] Comment on above: Performed By: #### U DINA, LIPID, TSH, BNP, CMP, T7 #### [facility] [address] [place] [address] Dr. Suzie Brooks Lymphocytes/100 WBC (Bld) 23.8 % Normal 20.5-60.0 [facility] Comment on above: Performed By: #### U DINA, LIPID, TSH, BNP, CMP, T7 #### [facility] [address] [address] [address] Suzie Brooks MANUAL DIFF REQ NO Normal [facility] Comment on above: Performed By: #### U DINA, LIPID, TSH, BNP, CMP, T7 #### [facility] [address] [address] [address] Suzie Brooks MCH (RBC) [Entitic mass] 28.8 pg Normal 25.9-34.0 [facility] Comment on above: Performed By: #### U DINA, LIPID, TSH, BNP, CMP, T7 #### [facility] [address] [place] [address] Dr. Suzie Brooks MCHC (RBC) [Mass/Vol] 32.4 g/dL Normal 29.9-35.2 [facility] Comment on above: Performed By: #### U DINA, LIPID, TSH, BNP, CMP, T7 #### [facility] [address] [address] [address] Suzie Brooks MCV (RBC) [Entitic vol] 88.8 fL Normal 80.0-94.0 [facility] Comment on above: Performed By: #### U DINA, LIPID, TSH, BNP, CMP, T7 #### [facility] [address] [address] [address] Suzie Brooks MONO # 0.9 103/ul Critically high 0.3-0.8 [facility] Comment on above: Performed By: #### U DINA, LIPID, TSH, BNP, CMP, T7 #### [facility] [address] [place] [address] Dr. Suzie Brooks Monocytes/100 WBC (Bld) 6.8 % Normal 1.7-12.0 [facility] Comment on above: Performed By: #### U DINA, LIPID, TSH, BNP, CMP, T7 #### [facility] [address] [place] [address] Dr. Suzie Brooks NEUT # 8.7 103/ul Critically high 1.4-6.5 [facility] Comment on above: Performed By: #### U DINA, LIPID, TSH, BNP, CMP, T7 #### [facility] [address] [address] [address] Suzie Brooks Neutrophils/100 WBC (Bld) 66.1 % Normal 43.0-75.0 [facility] Comment on above: Performed By: #### U DINA, LIPID, TSH, BNP, CMP, T7 #### [facility] [address] [address] [address] Suzie Brooks Platelet mean volume (Bld) [Entitic vol] 9.4 fL Critically low 9.5-13.5 [facility] Comment on above: Performed By: #### U DINA, LIPID, TSH, BNP, CMP, T7 #### [facility] [address] [address] [address] Suzie Brooks PLT 278 103/ul Normal 150-450 [facility] Comment on above: Performed By: #### U DINA, LIPID, TSH, BNP, CMP, T7 #### [facility] [address] [address] [address] Suzie Brooks RBC 5.52 106/ul Normal 4.70-6.10 [facility] Comment on above: Performed By: #### U DINA, LIPID, TSH, BNP, CMP, T7 #### [facility] [address] [address] [address] Suzie Brooks WBC 13.1 103/ul Critically high 4.0-11.0 [facility] Comment on above: Performed By: #### U DINA, LIPID, TSH, BNP, CMP, T7 #### [facility] [address] [place] [address] ABD/PELVIS WO CONon [...] RAFAEL GRAVES Date: 2021-11-05 11:46 Normal [facility] CULTURE URINEon 11-05-2021 CULTURE URINE Culture Observations : No growth Normal [facility] Comment on above: Performed By: #### M AG24 #### [facility] [address] [place] [address] Dr. Suzie Brooks ER URINE PROFILEon 2 Bilirubin Ql (U) Negative Normal NEGATIVE [facility] Comment on above: Performed By: #### C VDTBH #### [facility] [address] [place] [address] Dr. Suzie Brooks Clarity (U) CLEAR Normal CLEAR [facility] Comment on above: Performed By: #### C VDTBH #### [facility] [address] [place] [address] Dr. Suzie Brooks Color (U) DK. YELLOW Normal YELLOW [facility] Comment on above: Performed By: #### C VDTBH #### [facility] [address] [place] [address] Dr. Yilan Brooks ERUAHD A micrscopic examina tion will be performed if indicated. Normal [facility] Comment on above: Performed By: #### C VDTBH #### [facility] [address] [place] [address] Dr. Suzie Brooks Glucose Ql (U) Negative Normal NEGATIVE [facility] Comment on above: Performed By: #### C VDTBH #### [facility] [address] [place] [address] Dr. Suzie Brooks Hemoglobin Ql (U) LARGE Abnormal NEGATIVE [facility] Comment on above: Performed By: #### C VDTBH #### [facility] [address] [place] [address] Dr. Suzie Brooks Ketones Ql (U) Negative Normal NEGATIVE [facility] Comment on above: Performed By: #### C VDTBH #### [facility] [address] [place] [address] Dr. Suzie Brooks LEUKOCYTES Negative Normal NEGATIVE [facility] Comment on above: Performed By: #### C VDTBH #### [facility] [address] [place] [address] Dr. Suzie Brooks Nitrite Ql (U) Negative Normal NEGATIVE [facility] Comment on above: Performed By: #### C VDTBH #### [facility] [address] [place] [address] Dr. Suzie Brooks pH (U) 5.0 [pH] Normal 5-9 [facility] Comment on above: Performed By: #### C VDTBH #### [facility] [address] [place] [address] Dr. Suzie Brooks Protein (U) [Mass/Vol] 100 mg/dL Abnormal NEGATIVE/ TRACE [facility] Comment on above: Performed By: #### C VDTBH #### [facility] [address] [place] [address] Dr. Suzie Brooks SPEC GRAVITY >=1.030 Abnormal 1.005-<=1.02 5 [facility] Comment on above: Performed By: #### C VDTBH #### [facility] [address] [place] [address] Dr. Suzie Brooks UR MICRO IND INDICATED Normal [facility] Comment on above: Performed By: #### C VDTBH #### [facility] [address] [place] [address] Dr. Suzie Brooks Urobilinogen Qn (U) 0.2 {Behzad'U}/dL Normal 0.2 - 1. 0 [facility] Comment on above: Performed By: #### C VDTB #### [facility] [address] [address] [address] Suzie Brooks PROF 14(COMP METB)on 022 Albumin [Mass/Vol] 3.9 g/dL Normal 3.4-5.0 [facility] Comment on above: Performed By: #### U DINA, LIPID, TSH, BNP, CMP, T7 #### [facility] [address] [place] [address] Dr. Suzie Brooks Albumin/Globulin [Mass ratio] 1.1 {ratio} Normal [facility] Comment on above: Performed By: #### U DINA, LIPID, TSH, BNP, CMP, T7 #### [facility] [address] [address] [address] Suzie Brooks ALP [Catalytic activity/Vol] 64 U/L Normal 46-116 [facility] Comment on above: Performed By: #### U DINA, LIPID, TSH, BNP, CMP, T7 #### [facility] [address] [place] [address] Dr. Suzie Brooks ALT [Catalytic activity/Vol] 57 U/L Normal 16-63 [facility] Comment on above: Performed By: #### U DINA, LIPID, TSH, BNP, CMP, T7 #### [facility] [address] [address] [address] Suzie Brooks Anion gap [Moles/Vol] 14.4 mmol/L Normal [facility] Comment on above: Performed By: #### U DINA, LIPID, TSH, BNP, CMP, T7 #### [facility] [address] [address] [address] Suzie Brooks AST [Catalytic activity/Vol] 51 U/L Critically high 15-37 [facility] Comment on above: Performed By: #### U DINA, LIPID, TSH, BNP, CMP, T7 #### [facility] [address] [address] [address] Suzie Brooks Bilirubin [Mass/Vol] 0.8 mg/dL Normal 0.2-1.3 [facility] Comment on above: Performed By: #### U DINA, LIPID, TSH, BNP, CMP, T7 #### [facility] [address] [address] [address] Suzie Brooks Calcium [Mass/Vol] 8.5 mg/dL Normal 8.5-10.1 [facility] Comment on above: Performed By: #### U DINA, LIPID, TSH, BNP, CMP, T7 #### [facility] [address] [address] [address] Suzie Brooks Chloride [Moles/Vol] 103 mmol/L Normal 98-107 [facility] Comment on above: Performed By: #### U DINA, LIPID, TSH, BNP, CMP, T7 #### [facility] [address] [address] [address] Suzie Brooks CO2 [Moles/Vol] 26.8 mmol/L Normal 22.0-30.0 [facility] Comment on above: Performed By: #### U DINA, LIPID, TSH, BNP, CMP, T7 #### [facility] [address] [address] [address] Suzie Brooks Creatinine [Mass/Vol] 0.98 mg/dL Normal 0.66-1.25 [facility] Comment on above: Performed By: #### U DINA, LIPID, TSH, BNP, CMP, T7 #### [facility] [address] [address] [address] Suzie Brooks EGFR-AF JAMAICAN >60 Normal >=60 [facility] Comment on above: Performed By: #### U DINA, LIPID, TSH, BNP, CMP, T7 #### [facility] [address] [address] [address] Suzie Brooks EGFR-NON AF JAMAICAN >60 Normal >=60 [facility] Comment on above: Performed By: #### U DINA, LIPID, TSH, BNP, CMP, T7 #### [facility] [address] [address] [address] Suzie Brooks Globulin (S) [Mass/Vol] 3.7 g/dL Normal [facility] Comment on above: Performed By: #### U DINA, LIPID, TSH, BNP, CMP, T7 #### [facility] [address] [address] [address] Suzie Brooks Glucose [Mass/Vol] 118 mg/dL Critically high 74-106 T [facility] Comment on above: Performed By: #### U DINA, LIPID, TSH, BNP, CMP, T7 #### [facility] [address] [place] [address] Dr. Suzie Brooks Potassium [Moles/Vol] 4.2 mmol/L Normal 3.4-5.0 [facility] Comment on above: Performed By: #### U DINA, LIPID, TSH, BNP, CMP, T7 #### [facility] [address] [place] [address] Dr. Suzie Brooks Protein [Mass/Vol] 7.6 g/dL Normal 6.1-8.2 [facility] Comment on above: Performed By: #### U DINA, LIPID, TSH, BNP, CMP, T7 #### [facility] [address] [place] [address] Dr. Suzie Brooks Sodium [Moles/Vol] 140 mmol/L Normal 137-145 [facility] Comment on above: Performed By: #### U DINA, LIPID, TSH, BNP, CMP, T7 #### [facility] [address] [place] [address] Dr. Suzie Brooks Urea nitrogen [Mass/Vol] 14.0 mg/dL Normal 7.0-18.0 [facility] Comment on above: Performed By: #### U DINA, LIPID, TSH, BNP, CMP, T7 #### [facility] [address] [place] [address] Dr. Suzie Brooks Urea nitrogen/Creatinine [Mass ratio] 14.3 mg/mg Normal [facility] Comment on above: Performed By: #### U DINA, LIPID, TSH, BNP, CMP, T7 #### [facility] [address] [address] [address] Suzie Brooks URINE MICROSCOPIC ONLYon BACTERIA MODERATE Abnormal NONE SEEN [facility] Comment on above: Performed By: #### C VDTBH #### [facility] [address] [address] [address] Suzie Brooks Bacteria identified Cx Nom (U) INDICATED Normal [facility] Comment on above: Performed By: #### C VDTBH #### [facility] [address] [address] [address] Suzie Brooks CAST SEEN Abnormal NONE SEEN [facility] Comment on above: Performed By: #### C VDTBH #### [facility] [address] [place] [address] Dr. Suzie Brooks Crystals LM Nom (Urine sed) NONE SEEN Normal NONE SEEN [facility] Comment on above: Performed By: #### C VDTBH #### [facility] [address] [place] [address] Dr. Suzie Brooks Epithelial cells LM Ql (Urine sed) RARE Normal NONE SEEN /RARE [facility] Comment on above: Performed By: #### C VDTBH #### [facility] [address] [place] [address] Dr. Suzie Brooks HYALINE CAST RARE Normal [facility] Comment on above: Performed By: #### C VDTBH #### [facility] [address] [place] [address] Dr. Suzie Brooks MUCOUS NONE SEEN Normal NONE SEEN [facility] Comment on above: Performed By: #### C VDTBH #### [facility] [address] [address] [address] Suzie Brooks RBC (U) [#/Vol] /uL Abnormal 0-2 [facility] Comment on above: Performed By: #### C VDTBH #### [facility] [address] [place] [address] Dr. Suzie Brooks WBC NONE SEEN Normal NONE SEEN [facility] Comment on above: Performed By: #### C VDTBH #### [facility] [address] [address] [address] Suzie Brooks XR KUB 1 VIEWon [...] BEHZAD CARRASQUILLO Date: 2021-11-01 12:07 Normal [facility] CBC AUTO DIFFon 10-26-2021 BASO # 0.1 103/ul Normal 0.0-0.1 [facility] Comment on above: Performed By: #### U DINA, LIPID, TSH, BNP, CMP, T7 #### [facility] [address] [address] [address] Suzie Brooks Basophils/100 WBC (Bld) 0.7 % Normal 0.2-2.0 [facility] Comment on above: Performed By: #### U DINA, LIPID, TSH, BNP, CMP, T7 #### [facility] [address] [address] [address] Suzie Brooks EO # 0.2 103/ul Normal 0.0-0.7 [facility] Comment on above: Performed By: #### U DINA, LIPID, TSH, BNP, CMP, T7 #### [facility] [address] [address] [address] Suzie Brooks Eosinophils/100 WBC (Bld) 1.5 % Normal 0.9-7.0 [facility] Comment on above: Performed By: #### U DINA, LIPID, TSH, BNP, CMP, T7 #### [facility] [address] [address] [address] Suzie Brooks Erythrocyte distribution width (RBC) [Ratio] 13.9 % Normal 11.0-15.0 [facility] Comment on above: Performed By: #### U DINA, LIPID, TSH, BNP, CMP, T7 #### [facility] [address] [place] [address] Dr. Suzie Brooks Hematocrit (Bld) [Volume fraction] 47.5 % Normal 42.0-54.0 [facility] Comment on above: Performed By: #### U DINA, LIPID, TSH, BNP, CMP, T7 #### [facility] [address] [place] [address] Dr. Suzie Brooks Hemoglobin (Bld) [Mass/Vol] 15.5 g/dL Normal 14.0-18.0 [facility] Comment on above: Performed By: #### U DINA, LIPID, TSH, BNP, CMP, T7 #### [facility] [address] [place] [address] Dr. Suzie Brooks IG # 0.06 10e3/ul Critically high 0.00-0.03 [facility] Comment on above: Performed By: #### U DINA, LIPID, TSH, BNP, CMP, T7 #### [facility] [address] [place] [address] Dr. Suzie Brooks IG % 0.5 % Normal 0.0-0.5 [facility] Comment on above: Performed By: #### U DINA, LIPID, TSH, BNP, CMP, T7 #### [facility] [address] [place] [address] Dr. Suzie Brooks LYMPH # 2.6 103/ul Normal 1.2-3.8 [facility] Comment on above: Performed By: #### U DINA, LIPID, TSH, BNP, CMP, T7 #### [facility] [address] [address] [address] Suzie Brooks Lymphocytes/100 WBC (Bld) 23.1 % Normal 20.5-60.0 [facility] Comment on above: Performed By: #### U DINA, LIPID, TSH, BNP, CMP, T7 #### [facility] [address] [place] [address] Dr. Suzie Brooks MANUAL DIFF REQ NO Normal [facility] Comment on above: Performed By: #### U DINA, LIPID, TSH, BNP, CMP, T7 #### [facility] [address] [place] [address] Dr. Suzie Brooks MCH (RBC) [Entitic mass] 28.9 pg Normal 25.9-34.0 [facility] Comment on above: Performed By: #### U DINA, LIPID, TSH, BNP, CMP, T7 #### [facility] [address] [place] [address] Dr. Suzie Brooks MCHC (RBC) [Mass/Vol] 32.6 g/dL Normal 29.9-35.2 [facility] Comment on above: Performed By: #### U DINA, LIPID, TSH, BNP, CMP, T7 #### [facility] [address] [place] [address] Dr. Suzie Brooks MCV (RBC) [Entitic vol] 88.5 fL Normal 80.0-94.0 [facility] Comment on above: Performed By: #### U DINA, LIPID, TSH, BNP, CMP, T7 #### [facility] [address] [place] [address] Dr. Suzie Brooks MONO # 0.9 103/ul Critically high 0.3-0.8 [facility] Comment on above: Performed By: #### U DINA, LIPID, TSH, BNP, CMP, T7 #### [facility] [address] [place] [address] Dr. Suzie Brooks Monocytes/100 WBC (Bld) 7.9 % Normal 1.7-12.0 [facility] Comment on above: Performed By: #### U DINA, LIPID, TSH, BNP, CMP, T7 #### [facility] [address] [place] [address] Dr. Suzie Brooks NEUT # 7.4 103/ul Critically high 1.4-6.5 [facility] Comment on above: Performed By: #### U DINA, LIPID, TSH, BNP, CMP, T7 #### [facility] [address] [place] [address] Dr. Suzie Brooks Neutrophils/100 WBC (Bld) 66.3 % Normal 43.0-75.0 [facility] Comment on above: Performed By: #### U DINA, LIPID, TSH, BNP, CMP, T7 #### [facility] [address] [address] [address] Suzie Brooks Platelet mean volume (Bld) [Entitic vol] 9.6 fL Normal 9.5-13.5 [facility] Comment on above: Performed By: #### U DINA, LIPID, TSH, BNP, CMP, T7 #### [facility] [address] [address] [address] Suzie Brooks PLT 252 103/ul Normal 150-450 [facility] Comment on above: Performed By: #### U DINA, LIPID, TSH, BNP, CMP, T7 #### [facility] [address] [place] [address] Dr. Suzie Brooks RBC 5.37 106/ul Normal 4.70-6.10 [facility] Comment on above: Performed By: #### U DINA, LIPID, TSH, BNP, CMP, T7 #### [facility] [address] [address] [address] Suzie Brooks WBC 11.2 103/ul Critically high 4.0-11.0 [facility] Comment on above: Performed By: #### U DINA, LIPID, TSH, BNP, CMP, T7 #### [facility] [address] [place] [address] Dr. Suzie Brooks [facility]09 SARS-CoV-2 (COVID-19) RNA SUKHJINDER+probe Ql (Unsp spec) Not detected Normal NOT DETECTED [facility] Comment on above: Result Comment: This test is not yet approved or cleared by the [place] FDA. When there are no FDA-approved or cleared tests available, and other criteria are met, FDA can make tests available under an emergency access mechanism called an Emergency Use Authorization (EUA). The EUA for this test is supported by the [place] of Health and Human Service's (HHS's) declaration [...] DINA, LIPID, TSH, BNP, CMP, T7 #### [facility] [address] [place] [address] Dr. Suzie Brooks PROF CHEM 8 (BAS METB)on Anion gap [Moles/Vol] 7.7 mmol/L Normal [facility] Comment on above: Performed By: #### C VDTBH #### [facility] [address] [place] [address] Dr. Suzie Brooks Calcium [Mass/Vol] 8.6 mg/dL Normal 8.5-10.1 [facility] Comment on above: Performed By: #### C VDTBH #### [facility] [address] [place] [address] Dr. Suzie Brooks Chloride [Moles/Vol] 104 mmol/L Normal 98-107 [facility] Comment on above: Performed By: #### C VDTBH #### [facility] [address] [place] [address] Dr. Suzie Brooks CO2 [Moles/Vol] 31.8 mmol/L Critically high 22.0-30.0 [facility] Comment on above: Performed By: #### C VDTBH #### [facility] [address] [place] [address] Dr. Suzie Brooks Creatinine [Mass/Vol] 0.99 mg/dL Normal 0.66-1.25 [facility] Comment on above: Performed By: #### C VDTBH #### [facility] [address] [place] [address] Dr. Suzie Brooks EGFR-AF JAMAICAN >60 Normal >=60 [facility] Comment on above: Performed By: #### C VDTBH #### [facility] [address] [address] [address] Suzie Brooks EGFR-NON AF JAMAICAN >60 Normal >=60 [facility] Comment on above: Performed By: #### C VDTBH #### [facility] [address] [address] [address] Suzie Brooks Glucose [Mass/Vol] 94 mg/dL Normal 74-106 [facility] Comment on above: Performed By: #### C VDTBH #### [facility] [address] [address] [address] Suzie Brooks Potassium [Moles/Vol] 4.5 mmol/L Normal 3.4-5.0 [facility] Comment on above: Performed By: #### C VDTBH #### [facility] [address] [address] [address] Suzie Brooks Sodium [Moles/Vol] 139 mmol/L Normal 137-145 [facility] Comment on above: Performed By: #### C VDTBH #### [facility] [address] [address] [address] Suzie Brooks Urea nitrogen [Mass/Vol] 12.0 mg/dL Normal 7.0-18.0 [facility] Comment on above: Performed By: #### C VDTBH #### [facility] [address] [place] [address] Dr. Suzie Brooks Urea nitrogen/Creatinine [Mass ratio] 12.1 mg/mg Normal [facility] Comment on above: Performed By: #### C VDTBH #### [facility] [address] [address] [address] Suzie Brooks PROTIMEon 10-26-2021 INR Coag (PPP) [Relative time] 0.99 {INR} Normal [facility] Comment on above: Performed By: #### C VDTBH #### [facility] [address] [address] [address] Suzie Brooks INR GUIDELINES SEE BELOW Normal [facility] Comment on above: Result Comment: TOMMY RED INR: 2.0 - 3.0 CONDITIONS NOT LISTED BELOW 2.5 - 3.5 FOR PROSTHETIC HEART VALVE REPLACEMENT 2.5 - 3.5 RECURRENT THROMBOSIS Performed By: #### C VDTBH #### [facility] [address] [place] [address] Dr. Suzie Brooks PT Coag (PPP) [Time] 10.7 s Normal 9.0-11.6 [facility] Comment on above: Performed By: #### C VDTBH #### [facility] [address] [place] [address] Dr. Suzie Brooks PTTon 10-26-2021 aPTT Coag (Bld) [Time] 26.4 s Normal 22.3-36.2 [facility] Comment on above: Performed By: #### C VDTBH #### [facility] [address] [place] [address] Dr. Suzie Brooks XR KUB 1 VIEWon [...] by: RAFAEL GRAVES Date: 2021-10-17 13:26 Normal [facility] Vital Signs Date Time Vital Sign Value Performing Clinician Dario mcdonough 04-16-2024 11:38-0400 Blood Pressure Location Micki ZENG [facility] 04-16-2024 11:38-0400 Diastolic blood pressure 75 mm[Hg] Micki ZENG [facility] 04-16-2024 11:38-0400 Heart rate 96 /min Micki ZENG [facility] 04-16-2024 11:38-0400 Respiratory rate 18 /min Micki ZENG [facility] 04-16-2024 11:38-0400 Systolic blood pressure 131 mm[Hg] Micki ZENG [facility] 04-11-2023 11:55-0400 Blood Pressure Location Micki ZENG [facility] 04-11-2023 11:55-0400 Diastolic blood pressure 76 mm[Hg] Micki ZENG [facility] 04-11-2023 11:55-0400 Heart rate 80 /min Micki ZENG [facility] 04-11-2023 11:55-0400 Respiratory rate 16 /min Micki ZENG [facility] 04-11-2023 11:55-0400 Systolic blood pressure 134 mm[Hg] Micki ZENG [facility] 02-25-2022 14:20-0400 Blood Pressure Location Micki ZENG [facility] 02-25-2022 14:20-0400 Diastolic blood pressure 100 mm[Hg] Micki ZENG [facility] 02-25-2022 14:20-0400 Heart rate 86 /min Micki ZENG [facility] 02-25-2022 14:20-0400 Respiratory rate 16 /min Micki ZENG [facility] 02-25-2022 14:20-0400 Systolic blood pressure 155 mm[Hg] [facility] Encounters Encounter Date Encounter Type Care Provider Facility Start: 04-15-2025 ambulatory Micki ZENG Facili ty:[facility] Start: 04-16-2024 End: 04-16-2024 ambulatory Micki ZENG Facility:[facility] Start: 04-16-2024 End: 04-16-2024 Patient encounter procedure Micki ZENG [facility] Start: 04-01-2024 End: 04-01-2024 ambulatory TRACEY ABDULLAHI Not Available Start: 04-11-2023 End: 04-11-2023 Patient encounter procedure Micki ZENG [facility] Start: 08-14-[address] MARIELLE LERMA Facility :[facility] Start: 08-13-[address] MARIELLE LERMA Facility :[facility] Start: 07-26-2022 End: 07-27-[address] MARIELLE LERMA Facility:[facility] Start: 07-18-2022 End: 07-19-[address] MICKI ZENG Facility:[facility] Start: 05-15-2022 End: 05-16-[address] MARIELLE LERMA Facility:[facility] Start: 02-25-2022 End: 02-25-2022 Patient encounter procedure Micki ZENG [facility] Start: 02-18-2022 End: 02-18-[address] MARIELLE LERMA Facility:[facility] Start: 02-16-2022 End: 02-17-[address] MARIELLE LERMA Facility:[facility] Start: 02-01-2022 End: 02-01-[address] MICKI ZENG Facility:[facility] Start: 01-30-2022 End: 01-31-[address] MICKI ZENG Facility:[facility] Start: 12-18-2021 End: 12-19-[address] MICKI ZENG Facility:[facility] Start: 11-21-2021 End: 11-22-[address] MARIELLE LERMA Facility:[facility] Start: 11-13-2021 End: 11-13-2021 Patient encounter procedure MD Marielle Lerma Work Phone: [facility] Start: 11-12-2021 End: 11-13-[address] MICKI ZENG Facility:[facility] Start: 11-06-2021 End: 11-07-[address] MARIELLE LERAM Facility:[facility] Start: 11-05-2021 End: 11-05-[address] MARIELLE LERMA Facility:[facility] Start: 11-01-2021 End: 11-01-[address] MICKI ZENG Facility:[facility] Start: 10-31-2021 Encounter for preprocedural cardiovascular examination DR MICKI ZENG [facility] Start: 10-30-[address] MICKI ZENG [facility] ity:[facility] Start: 10-26-2021 End: 10-27-[address] MICKI ZENG Facility:[facility] Start: 10-26-2021 End: 10-27-2021 Encounter for preprocedural cardiovascular examination DR MICKI ZENG Facility:[facility] Start: 10-17-2021 End: 10-18-[address] MICKI ZENG Facility:[facility] Procedures Date Procedure Procedure Detail Performing Clinician Start: 05-15-[address] JHONATAN ZENG Comment on above: Performed By: #### U DINA, LIPID, TSH, BNP, CMP, T7 #### [facility] [address] [place] [address] Dr. Suzie Brooks Start: 11-21-2021 Cystoscopy Micki VINCENT Start: 11-06-2021 Cystoscopy Micki VINCENT Start: 11-08-2013 Colonoscopy Micki VINCENT Comment on above: normal Arthroplasty of knee Micki ZENG Comment on above: right Arthroscopic knee operation Micki ZENG Arthroscopic knee operation Micki ZENG Basal cell carcinoma (morphologic abnormality) Micki ZENG Cataract extraction and insertion of intraocular lens Micki ZENG Lithotripsy Micki ZENG Reconstruction of nose Patmiller ZENG Repair of musculoten dinous cuff of shoulder Micki ZENG Repair of umbilical hernia P vic ZENG Wide excision Micki ZENG Comment on above: basal cell CA- LLE Immunizations Immunization Date Immunization Notes Care Provider Asim aragon 05-31-2022 SARS-CoV-2 (COVID-19 ) [id number] Micki ZENG [facility] Comment on above: Result Comment: 2022: [id number] 12-22-2021 SARS-CoV-2 (COVID-19 ) mRNA-1273 vaccine Micki ZENG [facility] 06-05-2021 SARS-CoV-2 (COVID-19 ) mRNA-1273 vaccine Micki ZENG [facility] 05-29-2021 influenza virus vaccine, unspecified formulation Micki ZENG [facility] 05-15-2021 influenza virus vaccine, unspecified formulation Micki ZENG [facility] 11-09-2020 SARS-CoV-2 (COVID-19 ) mRNA-1273 vaccine Micki ZENG [facility] 11-01-2020 SARS-CoV-2 (COVID-19 ) mRNA-1273 vaccine Micki ZENG [facility] 10-09-2020 SARS-CoV-2 (COVID-19 ) mRNA-1273 vaccine Micki [employer] [facility] 10-05-2020 SARS-CoV-2 (COVID-19 ) mRNA-1273 vaccine Micki [employer] [facility] 05-17-2020 influenza virus vaccine, unspecified formulation Micki [employer] [facility] 06-24-2019 tetanus toxoid, redu roberto carlos diphtheria toxoid, and acellular pertussis vaccine, adsorbed [employer] [facility] 05-25-2019 influenza virus vaccine, unspecified formulation Micki ZENG [facility] 05-22-2017 influenza virus vaccine, unspecified formulation Micki ZENG [facility] 05-22-2017 pneumococcal conjuga te vaccine, 13 valent Micki [employer] [facility] 05-30-2016 influenza, unspecifi ed formulation Micki ZENG [facility] 11-01-2013 zoster vaccine, live Micki [employer] [facility] 12-18-2005 hepatitis A vaccine, adult dosage Micki ZENG [facility] 10-18-2005 hepatitis B vaccine, pediatric or pediatric/adolescent dosage Micki ZENG [facility] 10-18-2005 tetanus and diphther ia toxoids, adsorbed, preservative free, for adult use (2 Lf of tetanus toxoid and 2 Lf of diphtheria toxoid) Mickikimberly ZENG [facility] 07-26-2005 hepatitis B vaccine, pediatric or pediatric/adolescent dosage Mickikimberly ZENG [facility] 06-20-2005 hepatitis A vaccine, adult dosage Mickikimberly ZENG [facility] 06-20-2005 hepatitis B vaccine, pediatric or pediatric/adolescent dosage Mickikimberly ZENG [facility] Payers Date Payer Category Payer Medicare [id number] Private Health Insurance [id number] 1950 Unknown [id number] 2.16.84 0.1.254771.3.579.2.593 1950 Unknown [id number] 2.16.84 0.1.007215.3.579.2.593 1950 Unknown [id number] 2.16.84 0.1.733551.3.579.2.593 1952 Unknown [id number] 2.16.84 0.1.932028.3.579.2.593 1952 Unknown [id number] 2.16.84 0.1.156612.3.579.2.593 1952 Unknown [id number] 2.16.84 0.1.088577.3.579.2.593 1952 Unknown [id number] 2.16.84 0.1.440390.3.579.2.593 1952 Unknown [id number] 2.16.84 0.1.282068.3.579.2.593 1952 Unknown [id number] 2.16.84 0.1.506326.3.579.2.593 1952 Unknown [id number] 2.16.84 0.1.183475.3.579.2.593 1952 Unknown [id number] 2.16.84 0.1.793950.3.579.2.593 1952 Unknown [id number] 2.16.84 0.1.060676.3.579.2.593 1952 Unknown [id number] 2.16.84 0.1.523955.3.579.2.593 1952 Unknown [id number] 2.16.84 0.1.830989.3.579.2.593 1952 Unknown [id number] 2.16.84 0.1.514786.3.579.2.593 1952 Unknown [id number] 2.16.84 0.1.410514.3.579.2.593 1952 Unknown [id number] 2.16.84 0.1.248922.3.579.2.593 1952 Unknown [id number] 2.16.84 0.1.233723.3.579.2.593 1952 Unknown [id number] 2.16.84 0.1.913761.3.579.2.1259 1952 Unknown [id number] 2.16.8 40.1.798127.3.579.2.727 1950 Unknown [id number] 2.16.8 40.1.980325.3.579.2.727 Self-pay Self Pay [id number] Social History Date Type Detail Facility Start: 10-19-2019 End: 04-16-2024 Tobacco smoking status NHIS Ex-smoker (finding) [facility] Start: 1950 Sex Assigned At Male F [facility] Tobacco smoking status Never [facility] Sex Assigned At Male [facility] Functional Status Date Assessment Result Facility 04-16-2024 Functional Status N/A [facility] 04-11-2023 Functional Status N/A [facility] 02-25-2022 Functional Status N/A [facility] Hospital Discharge instructions 04-16-2024 Note Date & Type Note Facility 04-16-2024 Hospital Discharg e instructions Patient Education 04/16/2024 12:25:38 Kidney Stones, [id number] Kidney Stones Kidney stones are rock-like masses [...] pee. The stone usually leaves your body through your pee. A doctor may need to take out the stone. What are the causes? Kidney stones may be caused by: Too much calcium in the body. This may be caused by too much parathyroid hormone in the blood. Uric acid crystals in the bladder. The body makes uric acid when you eat certain foods. Narrowing of one or both of the ureters. A kidney blockage that you were born with. Past surgery on the kidney or the ureters. What increases the risk? You are more likely to develop this condition if: You have had a kidney stone in the past. Other people in your family have had kidney stones. You do not drink enough water. You eat a diet that is high in protein, salt (sodium), or sugar. You are very overweight (obese). What are the signs or symptoms? Symptoms of a kidney stone may include: Pain in the side of the belly, right below the ribs. Pain usually spreads to the groin. Needing to pee often or right away. Pain when peeing. Blood in your pee. Feeling like you may vomit (nauseous). Vomiting. Fever and chills. How is this treated? Treatment depends on the size, location, and makeup of the kidney stones. The stones will often pass out of the body when you pee. You may need to: Drink more fluid to help pass the stone. ?In some cases, you may be given fluids through an IV tube at the hospital. Take medicine for pain. Change your diet to help keep kidney stones from coming back. Sometimes, you may need: A procedure to break up kidney stones using a beam of light (laser) or shock waves. Surgery to remove the kidney stones. Follow these instructions at home: Medicines Take tlio-yng-obecqxa and prescription medicines only as told by your doctor. Ask your doctor if the medicine prescribed to you requires you to avoid driving or using machinery. Eating and drinking Drink enough fluid to keep your pee pale yellow. ?You may be told to drink at least 8 10 glasses of water each day. This will help you pass the stone. If told by your doctor, change your diet. You may be told to: ?Limit how much salt you eat. ?Eat more fruits and vegetables. ?Limit how much meat, poultry, fish, and eggs you eat. Follow instructions from your doctor about what you may eat and drink. General instructions Collect pee samples as told by your doctor. You may need to collect a pee sample: ?24 hours after a stone comes out. ?8 12 weeks after a stone comes out, and every 6 12 months after that. Strain your pee every time you pee. Use the strainer that your doctor recommends. Do not throw out the stone. Keep it so that it can be tested by your doctor. Keep all follow-up visits. You may need X-rays and ultrasounds to make sure the stone has come out. How is this prevented? To prevent another kidney stone: Drink enough fluid to keep your pee pale yellow. This is the best way to prevent kidney stones. Eat healthy foods. Avoid certain foods as told by your doctor. You may be told to eat less protein. Stay at a healthy weight. Where to find more information National Kidney Foundation (NKF): kidney.org [facility] [facility] (F): urologyhealth.org Contact a doctor if: You have pain that gets worse or does not get better with medicine. Get help right away if: You have a fever or chills. You get very bad pain. You get new pain in your belly. You faint. You cannot pee. This information is not intended to replace advice given to you by your health care provider. Make sure you discuss any questions you have with your health care provider. Document Revised: 03/21/2023 Document Reviewed: 03/21/2023 [employer] Patient Education 2023 [employer]. Follow Up Care 04/11/2023 12:50:53 With:THOR BATISTA, Micki Cedeño, URL Address: [facility] [address] , [place] [address]- [phone] When: Unknown Comments:3 yr w/ ISIDRO [facility] Clinical Note 04-16-2024 Note Date & Type Note Facility 04-16-2024 Note Patient Education Urology Kidney Stones Kidney stones are rock-like masses that form inside of the kidneys. Kidneys are organs that make pee (urine). A kidney stone may move into other parts of the urinary tract, including: ? The tubes that connect the kidneys to the bladder (ureters). ? The bladder. ? The tube that carries urine out of the body (urethra). Kidney stones can cause very bad pain and can block the flow of pee. The stone usually leaves your body through your pee. A doctor may need to take out the stone. What are the causes? Kidney stones may be caused by: ? Too much calcium in the body. This may be caused by too much parathyroid hormone in the blood. ? Uric acid crystals in the bladder. The body makes uric acid when you eat certain foods. ? Narrowing of one or both of the ureters. ? A kidney blockage that you were born with. ? Past surgery on the kidney or the ureters. What increases the risk? You are more likely to develop this condition if: ? You have had a kidney stone in the past. ? Other people in your family have had kidney stones. ? You do not drink enough water. ? You eat a diet that is high in protein, salt (sodium), or sugar. ? You are very overweight (obese). What are the signs or symptoms? Symptoms of a kidney stone may include: ? Pain in the side of the belly, right below the ribs. Pain usually spreads to the groin. ? Needing to pee often or right away. ? Pain when peeing. ? Blood in your pee. ? Feeling like you may vomit (nauseous). ? Vomiting. ? Fever and chills. How is this treated? Treatment depends on the size, location, and makeup of the kidney stones. The stones will often pass out of the body when you pee. You may need to: ? Drink more fluid to help pass the stone. ? In some cases, you may be given fluids through an IV tube at the hospital. ? Take medicine for pain. ? Change your diet to help keep kidney stones from coming back. Sometimes, you may need: ? A procedure to break up kidney stones using a beam of light (laser) or shock waves. ? Surgery to remove the kidney stones. Follow these instructions at home: Medicines ? Take dxwy-xus-jjaajfb and prescription medicines only as told by your doctor. ? Ask your doctor if the medicine prescribed to you requires you to avoid driving or using machinery. Eating and drinking ? Drink enough fluid to keep your pee pale yellow. ? You may be told to drink at least 8?10 glasses of water each day. This will help you pass the stone. ? If told by your doctor, change your diet. You may be told to: ? Limit how much salt you eat. ? Eat more fruits and vegetables. ? Limit how much meat, poultry, fish, and eggs you eat. ? Follow instructions from your doctor about what you may eat and drink. General instructions ? Collect pee samples as told by your doctor. You may need to collect a pee sample: ? 24 hours after a stone comes out. ? 8?12 weeks after a stone comes out, and every 6?12 months after that. ? Strain your pee every time you pee. Use the strainer that your doctor recommends. ? Do not throw out the stone. Keep it so that it can be tested by your doctor. ? Keep all follow-up visits. You may need X-rays and ultrasounds to make sure the stone has come out. How is this prevented? To prevent another kidney stone: ? Drink enough fluid to keep your pee pale yellow. This is the best way to prevent kidney stones. ? Eat healthy foods. ? Avoid certain foods as told by your doctor. You may be told to eat less protein. ? Stay at a healthy weight. Where to find more information ? National Kidney Foundation (NKF): kidney.org ? Urology Care Foundation (UCF): urologyhealth.org Contact a doctor if: ? You have pain that gets worse or does not get better with medicine. Get help right away if: ? You have a fever or chills. ? You get very bad pain. ? You get new pain in your belly. ? You faint. ? You cannot pee. This information is not intended to replace advice given to you by your health care provider. Make sure you discuss any questions you have with your health care provider. Document Revised: 03/21/2023 Document Reviewed: 03/21/2023 Else[employer] Patient Education ? 2023 [employer]. [facility] Discharge instructions 04-11-2023 Note Date [...] include: ?8 oz (237 mL) of milk, kxrwrhe-lnwprpoxcsup-aygnx milk, and calcium-fortifiedfruit juice. Calcium-fortified means that [...] ?Spinach (cooked), rhubarb, beets, sweet potatoes, and [place] chard. ?Peanuts. ?Potato chips, cymro fries, and baked potatoes with skin on. ?Nuts and nut products. ?Chocolate. If you regularly take a diuretic medicine, make sure to eat at least 1 or 2 servings of fruits or vegetables that are high in potassium each day. These include: ?Avocado. ?Banana. ?[place], prune, carrot, or tomato juice. ?Baked potato. [...] magnesium, fish oil, or vitamin B6. Take czcw-zit-sxzsgks and prescription medicines only as told by [...] Casseroles. Pizza. Lasagna. Frozen meals. Potato chips. [place] fries. The items listed above may not [...] provider. Document Revised: 04/08/2022 Document Reviewed: 04/08/2022 Elsevier Patient Education 2022 [employer]. Follow Up Care 08/19/2022 10:39:03 With:THOR BATISTA, Micki Cedeño, URL Address: [facility] [address], [place] [address]- When:Within 1 Year(s) [facility] [place] [facility] Discharge instructions 02-25-2022 [...] 07/28/2006 Document Revised: 04/16/2019 Document Reviewed: 06/27/2017 [employer] Patient Education 2020 [employer]. 02/25/2022 15:28:39 Kidney Stones, Ncpx-qp-Ptne Kidney Stones Kidney stones are rock-like masses [...] Follow these instructions at home: Medicines Take vaom-kqb-crcqkps and prescription medicines only as told by [...] 01/13/2009 Document Revised: 12/14/2019 Document Reviewed: 12/14/2019 [employer] Patient Education 2020 [employer]. Follow Up Care 11/21/2021 12:48:10 With:Micki ZENG MD, URL Address: [facility] [address], [place] [address]- [phone] When:Within 4 Month(s) Comments:4 mo fu with IVP [facility] Evaluation + Plan note 02-25-2022 Note Date & Type Note Facility 02-25-2022 Evaluation + Plan note Diagnostic Tests PendingPSA Total 02/25/22Creatinine 02/25/22 [facility] Evaluation + Plan note Note Date & Type Note Facility Evaluation + Plan note Future Appointments Appointment Date:04/16/2024 11:00:00 AM Scheduled Provider:Micki ZENG MD Location:[facility] Appointment Type:URO Office Visit [facility] Evaluation + Plan note Note Date & Type Note Facility Evaluation + Plan note Future Appointments Appointment Date:04/15/2025 11:00:00 AM Scheduled Provider:Micki ZENG MD Location:[facility] Appointment Type:URO Office Visit [facility] Evaluation note Note Date & Type Note Facility Evaluation note No assessment information availa [facility] Work Phone: Hospital course Narrative Note Date & Type Note Facility Hospital course Narrative No data available for this section [facility] Progress note Note Date & Type Note Facility Progress note No data available for this section [facility] Chief Complaint and Reason for Visit [...] Marielle Lerma MD Primary Care Provider Active Micki Zeng MD Attending Provider Active Team Status: [...] section and content) DATE CREATED AUTHOR 11/22/2021 [facility] DATE CREATED AUTHOR AUTHOR'S ORGANIZ ATION 08/13/2022 [facility] DATE CREATED AUTHOR AUTHOR'S ORGANIZ ATION 04/03/2024 [facility] DATE CREATED AUTHOR AUTHOR'S ORGANIZ ATION 04/18/2024 [facility] FOR RECORDS PERTAINING TO PATIENTS WHO [...] BE BASED ON THE PRIMARY CLINICAL RECORDS. [facility]. provides no warranty or guarantee of the accuracy or completeness of information in this document.
[2024-07-25] MEDS: LIDOCAINE HCL 1% PF 20 MG/2 ML VIAL 1 ML INJ (12:01)
--- NOTE | 2024-07-25 12:44 | ED.WOUNDLAC1 ---
HPI - Wound/Laceration General Chief Complaint: Wound/Laceration Stated Complaint: LACERATION; L RING FINGER Time Seen by Provider: 07/25/24 11:15 Source: patient Mode of arrival: walk-in Limitations: no limitations History of Present Illness HPI narrative: 74-year-old male to the emergency department chief complaint of laceration to his left index finger. Patient reports he was cutting up some hot dogs for some of the knees and when he is last night when he slipped and cut his finger. He reports bleeding was controlled and it seemed to be sealed so he did not seek care. Today it opened up again and began bleeding so he sought care. He believes his tetanus is up-to-date. Related Data Home Medications ?Medication ?Instructions ?Recorded ?Confirmed allopurinol 300 mg tablet 300 mg PO DAILY 08/15/23 11/04/23 hydrochlorothiazide 12.5 mg capsule 12.5 mg PO QDAY 08/15/23 11/04/23 meloxicam 15 mg tablet 15 mg PO DAILY 08/15/23 11/04/23 potassium citrate 10 mEq (1,080 10 meq PO BID 08/15/23 11/04/23 mg) tablet,extended release primidone 50 mg tablet 50 mg PO BID 08/15/23 11/04/23 simvastatin 20 mg tablet 20 mg PO .QHS 08/15/23 11/04/23 solifenacin 10 mg tablet 10 mg PO DAILY 08/15/23 11/04/23 tamsulosin 0.4 mg capsule 0.4 mg PO BID 08/15/23 11/04/23 lisinopril 40 mg tablet 40 mg PO .QD 09/02/23 11/04/23 Previous Rx's ?Medication ?Instructions ?Recorded aspirin 81 mg capsule 81 mg PO DAILY #30 caps 08/15/23 fluticasone propionate 50 2 spray intranasal QD #16 grams 09/06/23 mcg/actuation nasal spray,suspension montelukast 10 mg tablet 10 mg PO QHS #30 tabs 09/06/23 fluconazole 200 mg tablet 200 mg PO DAILY #10 tabs 11/08/23 (Diflucan) fluticasone furoate 200 1 inh inhalation DAILY #1 ea 11/08/23 mcg-vilanterol 25 mcg/dose inhalation powder (Breo Ellipta) levofloxacin 750 mg tablet 750 mg PO DAILY 10 days #10 tabs 11/08/23 prednisone 10 mg tablet 50 mg (5 x 10 mg) PO DAILY #47 tabs 11/08/23 amoxicillin 875 mg-potassium 1 tab PO Q12H #14 tabs 07/25/24 clavulanate 125 mg tablet Allergies Allergy/AdvReac Type Severity Reaction Status Date / Time No Known Drug Allergies Allergy Verified 04/15/24 14:22 Review of Systems ROS Status of ROS 10 or more systems reviewed and unremarkable except as noted in history and below [facility] Medical History (Updated 07/25/24 @ 11:43 by Perfecto Mary MD) Centrilobular emphysema ?J43.2 - Centrilobular emphysema (ICD-10) Obesity ?E66.9 - Obesity, unspecified (ICD-10) History of tobacco abuse ?Z87.891 - Personal history of nicotine dependence (ICD-10) Elevated hemidiaphragm ?J98.6 - Disorders of diaphragm (ICD-10) Acute asthmatic bronchitis ?J45.909 - Unspecified asthma, uncomplicated (ICD-10) Dehydration ?E86.0 - Dehydration (ICD-10) Weakness ?R53.1 - Weakness (ICD-10) Acute dyspnea ?R06.00 - Dyspnea, unspecified (ICD-10) 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 - Broken internal right knee prosthesis, initial encounter (ICD-10) Umbilical hernia ?K42.9 - Umbilical hernia without obstruction or gangrene (ICD-10) Kidney stones ?N20.0 - Calculus of kidney (ICD-10) Hx of skin malignancy ?Z85.828 - Personal history of other malignant neoplasm of skin (ICD-10) Chest pain ?R07.9 - Chest pain, unspecified (ICD-10) Surgical History (Updated 09/02/23 @ 16:17 by Nory Patel) History of cataract surgery ?Z98.49 - Cataract extraction status, unspecified eye (ICD-10) History of renal stent H/O lithotripsy ?Z98.890 - Other specified postprocedural states (ICD-10) Family History (Updated 09/02/23 @ 16:18 by Nory Patel) Mother Family history of cancer Family history of hypertension Father Family history of diabetes mellitus Family history of hypertension Family history of myocardial infarction Social History Within the past year, how often did you have a drink containing alcohol: 2-4 times a month Smoking status: Former smoker Non-prescribed substance use: denies use Previous occupational history: Retired Highest level of school completed/degree received: some college, no degree Are you now , , , , never or living with a partner: In a typical week, how many times do you talk on the telephone with family, friends, or neighbors: 3 or more times per week How often do you get together with friends or relatives: 3 or more times per week How often do you attend scientology or yazdanism services: never Do you belong to any clubs or organizations such as scientology groups unions, [employer] or athletic groups, or school groups: no Total score: 2 Score interpretation: A score of greater than or equal to 2 indicates the lowest level of social isolation. Little interest or pleasure in doing things: not at all Feeling down, depressed, or hopeless: not at all Feel stressed/tense/nervous/anxious/difficulty sleeping: not at all Do you think of yourself as: straight/heterosexual Gender Identity: male Exam Narrative Exam Narrative: VITALS: I have reviewed the triage vital signs. GENERAL: Well developed, well appearing adult in no acute distress. NEURO: Alert and oriented. Moves all extremities. Face is symmetric and expressive. Left hand: Radial pulse intact. Sensation is intact over the hand. Superficial and deep flexor tendons are intact by functional testing in each joint of the index finger. Extensor tendon mechanism is intact. There is a 1.6 cm laceration across the distal fingertip. SKIN: Warm and dry. Normal turgor. No rash or lesions appreciated. PSYCH: Mood, affect, and interaction is appropriate to the setting. Constitutional Vital Signs, click to edit/add: Last Vital Signs Temp 100.0 F 07/25/24 10:41 Pulse 109 H 07/25/24 10:41 Resp 18 07/25/24 10:41 BP 158/96 H 07/25/24 10:41 Pulse Ox 93 L 07/25/24 10:41 O2 Del Method Room Air 07/25/24 10:41 Course Vital Signs Vital signs: Vital Signs Temperature 100.0 F 07/25/24 10:41 Pulse Rate 109 H 07/25/24 10:41 Respiratory Rate 18 07/25/24 10:41 Blood Pressure 158/96 H 07/25/24 10:41 Pulse Oximetry 93 L 07/25/24 10:41 Oxygen Delivery Method Room Air 07/25/24 10:41 Temperature 100.0 F 07/25/24 10:41 Pulse Rate 109 H 07/25/24 10:41 Respiratory Rate 18 07/25/24 10:41 Blood Pressure 158/96 H 07/25/24 10:41 Pulse Oximetry 93 L 07/25/24 10:41 Oxygen Delivery Method Room Air 07/25/24 10:41 MDM - Wound/Laceration MDM Narrative Medical decision making narrative: 74-year-old male with delayed presentation of finger laceration. Vital stable, the patient is afebrile. Tendons are intact. Discussed risks and benefits of repair. Discussed risk of infection. Patient would like suture repair. 3 sutures were placed for adequate approximation. No further bleeding. Removal in 5 to 7 days. He is placed in a finger splint to maintain integrity for the first 48 hours. Augmentin was prescribed for infection prophylaxis given the delayed repair. Patient was discharged home. Laceration Repair Wound location: Linear 1.6 cm laceration into the fat pad of the distal finger. Verbal consent was obtained for laceration repair. Lidocaine infiltration for local anesthesia, 3cc 1% lidocaine. Wound was cleansed and then irrigated with normal saline under pressure. Wound explored. No foreign bodies were identified. 3x simple interrupted 4-O sutures were used to repair the laceration. Adequate wound approximation was obtained. The patient tolerated the procedure well and there were no complications. Perfecto Mary DO Discharge Plan Discharge Chief Complaint: Wound/Laceration Clinical Impression: Finger laceration Patient Disposition: Home, Self-Care Time of Disposition Decision: 11:43 Condition: Good Mode of Transportation: Private Vehicle Prescriptions / Home Meds: New amoxicillin-pot clavulanate 875-125 mg tablet 1 tab PO Q12H Qty: 14 0RF No Action lisinopril 40 mg tablet 40 mg PO .QD montelukast 10 mg Tablet 10 mg PO QHS Qty: 30 11RF fluticasone propionate 50 mcg/actuation [place],Suspension 2 spray intranasal QD Qty: 16 11RF prednisone 10 mg tablet 50 mg PO DAILY Qty: 47 0RF Rx Instructions: 5/day for 3 days. 4/day for 3 days, 3/day for 3 days, 2/day for 3 days, 1/day for 3 days, 1/2 /day for 4 days levofloxacin 750 mg tablet 750 mg PO DAILY 10 Days Qty: 10 0RF fluticasone furoate-vilanterol [Breo Ellipta] 200-25 mcg/dose blister with device 1 inh inhalation DAILY Qty: 1 11RF fluconazole [Diflucan] 200 mg tablet 200 mg PO DAILY Qty: 10 0RF primidone 50 mg tablet 50 mg PO BID meloxicam 15 mg tablet 15 mg PO DAILY Rx Instructions: ONCE OR TWICE A DAY tamsulosin 0.4 mg capsule 0.4 mg PO BID potassium citrate 10 mEq (1,080 mg) tablet extended release 10 meq PO BID simvastatin 20 mg tablet 20 mg PO .QHS hydrochlorothiazide 12.5 mg capsule 12.5 mg PO QDAY allopurinol 300 mg tablet 300 mg PO DAILY solifenacin 10 mg tablet 10 mg PO DAILY aspirin 81 mg capsule 81 mg PO DAILY Qty: 30 11RF Print Language: [place]an Instructions: Finger Laceration (ED) Additional Instructions: Keep original bandage on for 48 hours after which the wound may be open to the air. You may gently clean the site with soap and water twice daily after 48 hours. You can apply anti-bacterial ointment to the wound twice daily after cleaning. Do not go swimming until sutures are removed and wound has healed completely. [facility] cosmetic appearance of the wound will be best with decreased sun exposure and application of sunscreen for the first year following suture removal. Seek medical care if your wound develops increasing redness, warmth, swelling, or purulent discharge. Your sutures will need to be removed in 5-7 days by a healthcare provider so the wound can be re- examined. Referrals: Guicho Lerma MD [Primary Care Provider] - 1 week Discharge Date/Time: 07/25/24 12:03
== END 2024-07-25 12:03 | disposition home or self-care (01) ==
PROVIDERS: Emergency Provider Student in an Organized Health Care Education/Training Program; PCP Family Medicine
DX: S61.211A Laceration without foreign body of left index finger without damage to nail, initial encounter (principal); W26.0XXA Contact with knife, initial encounter; U07.1 COVID-19; J43.2 Centrilobular emphysema; Z87.891 Personal history of nicotine dependence; R50.9 Fever, unspecified
CPT/HCPCS: 12001; 99284

== ENCOUNTER 2024-07-30 06:54 | Outpatient (OUT) | payer MEDICARE, OTHER, SELFPAY ==
--- OUTSIDE RECORDS SUMMARY | 2024-07-30 06:59 | XMS_ITS | CCD ---
Author Organization [facility] Care Team Providers Care Sausage Inspector Name Role Phone MD Marielle Leram Primary Care Provider [phone] MD Micki Zeng Attending Provider [phone] Marielle Lerma Primary Care Physician THOR, DR SWEET Admitting Unavailable ZENG, DR SWEET Attending Unavailable HOY, DR PALOMARES Primary Care Unavailable ZENG, DR SWEET Consulting Unavailable ZIEBDMITRIY, DR BEHZAD [...] Unavailable STAR, DR RAFAEL Pizano Consulting Unavailable HOY, DR PALOMARES Admitting Unavailable HOY, DR PALOMARES Attending Unavailable HOY, DR PALOMARES Primary Care Unavailable HOY, DR PALOMARES Consulting Unavailable HOY, DR PALOMARES Admitting Unavailable HOY, DR PALOMARES Attending Unavailable HOKanika, DR PALOMARES Primary Care Unavailable THOR, DR SWEET Admitting Unavailable THOR, DR SWEET Attending Unavailable ASHLEY, DR PALOMARES Primary Care Unavailable THOR, DR SWEET Consulting Unavailable ZIEBER, DR BEHZAD Cedeño Consulting Unavailable AGUBOSIM, ROMEL Consulting Unavailable SHARAN, MILADYS Consulting Unavailable ASHLEY, DR PALOMARES Primary Care Unavailable HAY, DR REEDER Admitting Unavailable HAY, DR REEDER Attending Unavailable WEST, DR RAFAEL Pizano Consulting Unavailable HAY, DR REEDER Consulting Unavailable HOY, DR PALOMARES Primary Care Unavailable HOY, DR PALOMARES Admitting Unavailable HOY, DR PALOMARES Attending Unavailable HOY, DR PALOMARES Consulting Unavailable STAR, DR RAFAEL Pizano Consulting Unavailable MARKER, DR GRANT Consulting Unavailable AGUBOSIM, ROMEL Consulting Unavailable AHMED, CARLOS Consulting Unavailable LUTosin .NADEGE Consulting Unavailable NARDINBEHZAD Franklin Consulting Unavailable ASHLEY, DR PALOMARES Primary Care Unavailable ASHLEY, DR PALOMARES Consulting Unavailable NADEREGala, DR ERMA Garcia Admitting Unavailable NADERER, DR ERMA Garcia Attending Unavailable NADERER, DR ERMA Garcia Consulting Unavailable ANNITA, RUDDY Consulting Unavailable LUTosin ., NADEGE Tineo Consulting Unavailable MCCBEHZAD BECKER Consulting Unavailable THOR, DR SWEET Admitting Unavailable THOR, DR SWEET Attending Unavailable ASHLEY, DR PALOMARES Primary Care Unavailable THOR, DR SWEET Consulting Unavailable ASHLEY, DR PALOMARES Primary Care Unavailable RUDDY ARIZA Admitting Unavailable RUDDY ARIZA Attending Unavailable RUDDY ARIZA Consulting Unavailable SERENE GIROLAELHAM Consulting Unavailable TRACEY WILLETT Attending Unavailable Micki ZENG Attending Unavailable Micki ZENG Attending Unavailable Marielle Lerma MD Primary Care Provider [phone] Allergies Allergy Classification Reported Allergen(s) Allergy Type Date of Onset Reaction(s) Facility (1 source) No Known Medication Allergies; Translations: [No Known Medication Allergies] Propensity to adverse reactions (disorder) [facility] Repository Medications Current Medications Medication [...] 12:46pm acetaminophen 325 mg / HYDROcodone bitartrate 10 mg oral tablet (8 sources) Opioid Agonist Start: 12-29-2023 take 1 tablet by mouth in the morning HYDROcodone-acetami nophen ([place]) 10-325 MG tablet Take 1 tablet by mouth in the morning and 1 tablet before bedtime. 12/29/2023 Active Start: 05-29-2021 take 1 tablet by isa th once daily acetaminophen-hydrocodone 325 mg-5 mg or al tablet 1 tab(s), Oral, Daily pain, Refill(s) 0 Start Date: 05/29/21 Status: Ordered Start: 09-07-2019 End: 10-12-2019 take 1 tablet by mouth every four to six hours Hydrocodone-Acetaminophen ([place]) 5-325 mg tablet Active 1 TAB PO EVERY 4-6 HOURS 40 7 September 28, 2019 1:45pm allopurinol 300 mg oral tablet (6 sources) Xanthine Oxidase Inhibitor Start: 11-27-2023 take 1 tablet by mouth once daily allopurinol 300 mg Tab 300 mg = 1 tab(s), Oral, Daily, # 90 tab(s), Refills(s) 3, Pharmacy: [facility]/pharmacy #[id number], 180, cm, 04/11/23 11:56:00 EDT, Height/Length Dosing, 127, kg, 04/11/23 11:56:00 EDT, Weight Dosing Start Date: 03/02/24 Status: Ordered Start: 03-10-2023 take 1 tablet by isa th once daily allopurinol 300 mg Tab 300 mg = 1 tab(s), Oral, Daily, # 90 tab(s), Refills(s) 3, Pharmacy: [facility]/pharmacy #[id number], 180, cm, 08/19/22 9:50:00 EST, Height/Length Dosing, 136.2, kg, 08/19/22 9:50:00 EST, Weight Dosing Start Date: 03/10/23 Status: Ordered Start: 02-25-2022 allopurinol 30 0 mg Tab 150 mg = 0.5 tab(s), Oral, Daily, # 30 tab(s), Refills(s) 11, Pharmacy: [facility] #[id number], 180, cm, 02/25/22 14:22:00 EDT, Height/Length Dosing, 135, kg, 02/25/22 14:22:00 EDT, Weight Dosing Start Date: 02/25/22 Status: Ordered aspirin 81 mg chewable tablet (4 sources) Platelet Aggregation Inhibitor, Nonsteroidal Anti-inflammatory Drug Start: 04-16-2024 aspirin 81 mg Callie w Tab 162 mg = 2 tab(s), Chewed, BID Start Date: 04/16/24 Status: Ordered Start: 02-10-2019 take 2 tablets by [facility] once daily aspirin 81 mg oral tablet 162 mg = 2 tab(s), Oral, Daily, Refills(s) 0 Start Date: 02/10/19 Status: Ordered Start: 01-02-2018 take 1 tablet by [facility] twice daily Aspirin (Aspir-81) 81 mg Tablet,Delayed Release (Dr/Ec) Active 1 TAB PO Twice daily January 02, 2018 9:35am clindamycin 0.01 mg/mg topical gel (1 source) Lincosamide Antibacterial Start: 05-25-2021 Clindagel 1% topical gel 1 keke, Topical, BID, Refill(s) 0 Start Date: 05/25/21 Status: Ordered cloNIDine hydrochloride 0.1 mg oral tablet (6 sources) Central alpha-2 Adrenergic Agonist Start: 04-23-2021 take 1 mg by mouth twice daily cloNIDine 0.1 mg tab mg tab(s), Oral, BID, Refills(s) 0 Start Date: 04/23/21 Status: Ordered colchicine 0.6 mg oral tablet (6 sources) Start: 05-25-2021 take 1 tablet by mouth twice daily colchicine 0.6 mg Tab 0.6 mg = 1 tab(s), Oral, BID, Refills(s) 0 Start Date: 05/25/21 Status: Ordered take 1 capsule by mo uth twice daily as needed Colchicine 0.6 MG capsule Take 0.6 mg by mouth 2 (two) times a day as needed Active fluticasone propionate 0.05 mg/actuat metered dose nasal spray (2 sources) Corticosteroid take 2 spray(s) nasal route in the morning fluticasone (Flonase) 50 MCG/ACT nasal spray Administer 2 sprays into each nostril in the morning and 2 sprays before bedtime. Shake gently. Before first use, prime pump. After use, clean tip and replace cap.. Active hydroCHLOROthiazide 12.5 mg oral capsule (6 sources) Thiazide Diuretic Start : 09-08 take 1 capsule by mouth once daily hydroCHLOROthiazide (Microzide) 12.5 MG capsule Take 12.5 mg by mouth Daily 01/17/2024 Active Start: 08-19-2022 take 1 capsule by mo [facility] once daily hydrochlorothiazide 12.5 mg Cap 12.5 mg = 1 cap(s), Oral, Daily, # 90 cap(s), Refills(s) 3, Pharmacy: [facility]/pharmacy #[id number], 180, cm, 08/19/22 9:50:00 EST, Height/Length Dosing, 136.2, kg, 08/19/22 9:50:00 EST, Weight Dosing Start Date: 08/19/22 Status: Ordered Start: 02-25-2022 take 1 capsule by [facility] once daily hydrochlorothiazide 12.5 mg Cap 12.5 mg = 1 cap(s), Oral, Daily, # 30 cap(s), Refills(s) 6, Pharmacy: [facility] #[id number], 180, cm, 02/25/22 14:22:00 EDT, Height/Length Dosing, 135, kg, 02/25/22 14:22:00 EDT, Weight Dosing Start Date: 02/25/22 Status: Ordered hyoscyamine sulfate 0.125 mg oral tablet (1 source) Start: 11-12-2021 hyoscyamine 0. 125 mg oral Tab Refills(s) 0 Start Date: 11/12/21 Status: Ordered lisinopril 40 mg oral tablet (7 sources) Angiotensin Converting Enzyme Inhibitor Start: 01-02-2018 [...] Ordered Start: 05-25-2021 take 1 tablet by isa th four times daily meclizine 25 mg Tab 25 mg = 1 tab(s), Oral, QID, Refills(s) 0 Start Date: 05/25/21 Status: Ordered meloxicam 15 mg oral tablet (7 sources) Nonsteroidal Anti-inflammatory Drug Start: 04-16-2024 take [...] 2018 9:35am montelukast 10 mg oral tablet (3 sources) Leukotriene Receptor Antagonist Start: 04-16-2024 take 1 mg by mouth once daily in the evening montelukast 10 mg Tab mg tab(s), Oral, qPM Start Date: 04/16/24 Status: Ordered take 1 tablet by mouth at bedtim e montelukast (Singulair) 10 MG tablet Take 10 mg by mouth at bedtime Active Ofkdgmjg-Pfk-Yz-Lycopen-Lute in (Centrum Silver) 0.4-300-250 mg-mcg-mcg Tablet (1 source) Start: 09-02-2019 take 1 tablet by mouth once daily Snrxpmee-Wja-Ew-Lycopen-Lutein (Centrum Silver) 0.4-300-250 mg-mcg-mcg Tablet Active 1 TAB PO Daily September 02, 2019 12:45pm potassium bicarbonate 20 meq effervescent oral tablet (2 sources) Start: 01-02-2018 End: 09-02-2019 Potassium Bicarb-Citric Acid (Effer-K) 20 mEq Tablet, Effervescent Active 20 MEQ PO Twice daily September 02, 2019 12:40pm potassium citrate 10 meq extended release oral tablet (2 sources) Start: 04-11-2023 potassium CITRATE 10 mEq ER Tab 10 mEq, 1 tab(s), Oral, BID, 60 tab(s), Refill(s) 11, [facility]/pharmacy #[id number], 180, cm, 04/11/23 11:56:00 EDT, Height/Length Dosing, 127, kg, 04/11/23 11:56:00 EDT, Weight Dosing Start Date: 04/11/23 Status: Ordered pravastatin sodium 20 mg ora l tablet (4 sources) HMG- CoA Redu ctas e Inhi bito r Start: 01-02-2018 take 20 mg by mouth once daily at bedtime Pravastatin Active 20 MG PO Daily at bedtime January 02, 2018 9:35am primidone 50 mg oral tablet (10 sources) Anti -epi lept ic Agen t Start: 09-06-2023 take 1 tablet by mouth twice daily primidone (Mysoline) 50 MG tablet Indications: Essential tremor TAKE 1 TABLET BY MOUTH TWICE A DAY FOR 30 DAYS 180 tablet 2 02/17/2024 Active Start: 09-02-2019 take 12.5 mg by mout h once daily at bedtime Primidone Active 12.5 MG PO Daily at bedtime September 02, 2019 12:44pm Start: 02-10-2019 primidone 50 m g Tab 25 mg = 0.5 tab(s), Once a day (at bedtime), Refills(s) 0 Start Date: 02/10/19 Status: Ordered simvastatin 20 mg oral tablet (5 sources) HMG-CoA Reductase Inhibitor Start: 05-29-2021 take [...] BID, # 90 tab(s), Refills(s) 3, Pharmacy: [facility]/pharmacy #[id number], 180, cm, 08/19/22 9:50:00 EST, Height/Length Dosing, 136.2, kg, 08/19/22 9:50:00 EST, Weight Dosing Start Date: 08/19/22 Status: Ordered solifenacin succinate 10 mg oral tablet (5 sources) Cholinergic Muscarinic Antagonist Start: 04-08-2022 End: 12-23-2024 take 1 tablet by mouth once daily solifenacin (VESIcare) 10 MG tablet Take 10 mg by mouth Daily 11/19/2023 Active Start: 02-25-2022 take 1 tablet by isa th once daily Vesicare 10 mg Tab 10 mg = 1 tab(s), Oral, Daily, # 30 tab(s), Refills(s) 11, Pharmacy: [facility]/pharmacy #[id number], 180, cm, 02/25/22 14:22:00 EDT, Height/Length Dosing, 135, kg, 02/25/22 14:22:00 EDT, Weight Dosing Start Date: 02/25/22 Status: Ordered tadalafil 20 mg oral tablet (4 sources) Phosphodiesterase 5 Inhibitor Start: 10-23-2021 take 1 tablet by mouth once daily Cialis 20 mg Tab 20 mg = 1 tab(s), Oral, Daily, # 30 tab(s), Refills(s) 6, Pharmacy: [facility]/pharmacy #[id number], 180, cm, 10/22/21 14:56:00 EDT, Height/Length Dosing, 135, kg, 10/22/21 14:56:00 EDT, Weight Dosing Start Date: 10/23/21 Status: Ordered Start: 01-02-2018 take 1 tablet by isa once daily Tadalafil (Cialis) 10 mg Tablet Active 10 MG PO Daily January 02, 2018 9:35am tamsulosin hydrochloride 0.4 mg oral capsule (8 sources) alpha-Adrenergic Reilly Start: 01-27-2024 take 1 capsule by mouth every twenty-four hours in the morning tamsulosin (Flomax) 0.4 MG 24 hr capsule Take 0.4 mg by mouth in the morning and 0.4 mg before bedtime. 01/27/2024 Active Start: 10-28-2023 take 1 capsule by mo [facility] twice daily tamsulosin 0.4 mg Cap 0.4 mg = 1 cap(s), Oral, BID, # 180 cap(s), Refills(s) 3, Pharmacy: [facility]/pharmacy #[id number], 180, cm, 04/11/23 11:56:00 EDT, Height/Length Dosing, 127, kg, 04/11/23 11:56:00 EDT, Weight Dosing Start Date: 10/28/23 Status: Ordered Start: 04-11-2023 take 1 capsule by [facility] once daily tamsulosin 0.4 mg Cap 0.4 mg = 1 cap(s), Oral, Daily, # 90 cap(s), Refills(s) 3, Pharmacy: [facility]/pharmacy #[id number], 180, cm, 04/11/23 11:56:00 [...] Coronary atherosclerosis; Translations: [Atherosclerotic heart disease of [place] coronary artery without angina pectoris] Onset: 11-05-2021 05-25-2021 Chronic Diabetes mellitus without complication (1 source) Type 2 diabetes mellitus without complications; Translations: [TYPE 2 DM WITHOUT COMPLICATIONS] Onset: 05-17-2022 Chronic Diabetes mellitus without complication (1 source) Other abnormal glucose; Translations: [OTHER ABNORMAL GLUCOSE] Onset: 05-17-2022 Episodic Disorders of lipid metabolism (5 sources) Pure hypercholesterolemia , unspecified; Translations: [Hyperlipidemia, unspecified] Onset: 05-17-2022 03-28-2024 Chronic Esophageal disorders (1 source) Gastro-esophageal reflux disease without esophagitis; Translations: [GERD WITHOUT ESOPHAGITIS] Onset: 08-01-2022 Chronic Essential hypertension (9 sources) Hypertensive disorder; Translations: [Essential (primary) hypertension] [...] Onset: 08-01-2022 Chronic Other 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) terminal worker (current) use of aspirin; Translations: [PENITENTIARY CURRENT USE OF ASPIRIN] Onset: 08-01-2022 Episodic Other 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) Other parts counterman (current) 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; Translations: [OTH JUDICIAL LAW CLERK CURRENT DRUG THERAPY] Onset: 08-01-2022 Episodic Other connective tissue disease (1 source) Presence of right artificial knee joint; Translations: [PRESENCE RT ARTIFICIAL KNEE JOINT] Onset: 11-12-2021 Chronic Other gastrointestinal disorders (3 sources) Occult blood in stools 02-10-2019 Episodic Other hereditary and degenerative nervous system conditions (8 sources) Essential tremor; Translations: [Essential tremor] Onset: 03-28-2024 05-25-2021 Chronic Other hereditary and degenerative nervous [...] Onset: 02-18-2022 Episodic Other 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) terminal worker (current) use of anticoagulants; Translations: [JUDICIAL LAW CLERK CURRNT USE ANTICOAGULANTS] Onset: 11-05-2021 Episodic Other [...] Micki ZENG MD Where: [facility] [address] [place] [address]- You Need to Schedule the Following Appointments Follow Up with Micki ZENG MD, URL When: Comments: 1 yr w/ ISIDRO Where: [facility] [address], [place] [address]- [phone] Medications What How Much When Instructions Unchanged [...] of urination (more content not included)... Normal [facility] Ambulatory Visit Summary Ambulatory Visit Summary APARICIOPATRICK HERNANDEZKanika Feliciano :1950 Visit Date:04/16/2024 Ambulatory Visit Instructions Your [...] AMRIK Khanna When: Comments: 1 yr w/ KUB Where: [facility] [address] , [place] [address]- [phone] Medications What How Much When Instructions Unchanged [...] your c (more content not included)... Normal [facility] Urology Office/Clinic Noteon 04-16-2024 Urology Office/Clinic [...] on 02/18/22. Stone analysis - 70% CaOx [place], 30% uric acid. LUIS 04/01/23 - cortical [...] URL [facility] [address], [place] [address]- [phone] Additional Instructions: 1 yr w/ KUB Patient Education Kidney Stones, [id number] IBrenda, personally scribed for Dr. Zeng on 04/16/2024 12:27:55. . Documentation recorded by the scribe, Brenda Lopez, accurately reflects the services(s) I performed and [...] data Proced (more content not included)... Normal [facility] Comment on above: Result Comment: Elec tronically Signed By: Micki ZENG MD\.br\Date and Time Signed: 04/16/24 12:29 EDT\.br\Electronically Co-Signed By: Brenda Lopez\.br\Date and Time Co-Signed: 04/16/24 12:28 EDT CBC AUTO DIFFon 07-27-2022 BASO # 0.1 103/ul Normal 0.0-0.1 [facility] Comment on above: Performed By: #### U DINA, LIPID, TSH, BNP, CMP, T7 #### [facility] [address] [address] [address] Suzie Brooks Basophils/100 WBC (Bld) 0.5 % Normal 0.2-2.0 [facility] Comment on above: Performed By: #### U DINA, LIPID, TSH, BNP, CMP, T7 #### [facility] [address] [address] [address] Suzie Brooks EO # 0.4 103/ul Normal 0.0-0.7 [facility] Comment on above: Performed By: #### U DINA, LIPID, TSH, BNP, CMP, T7 #### [facility] [address] [address] [address] Suzie Brooks Eosinophils/100 WBC (Bld) 3.3 % Normal 0.9-7.0 [facility] Comment on above: Performed By: #### U DINA, LIPID, TSH, BNP, CMP, T7 #### [facility] [address] [address] [address] Suzie Brooks Erythrocyte distribution width (RBC) [Ratio] 14.6 % Normal 11.0-15.0 [facility] Comment on above: Performed By: #### U DINA, LIPID, TSH, BNP, CMP, T7 #### [facility] [address] [place] [address] Dr. Suzie Brooks Hematocrit (Bld) [Volume fraction] 42.0 % Normal 42.0-54.0 [facility] Comment on above: Performed By: #### U DINA, LIPID, TSH, BNP, CMP, T7 #### [facility] [address] [place] [address] Dr. Suzie Brooks Hemoglobin (Bld) [Mass/Vol] 14.1 g/dL Normal 14.0-18.0 [facility] Comment on above: Performed By: #### U DINA, LIPID, TSH, BNP, CMP, T7 #### [facility] [address] [place] [address] Dr. Suzie Brooks IG # 0.03 10e3/ul Normal 0.00-0.03 [facility] Comment on above: Performed By: #### U DINA, LIPID, TSH, BNP, CMP, T7 #### [facility] [address] [place] [address] Dr. Suzie Brooks IG % 0.3 % Normal 0.0-0.5 [facility] Comment on above: Performed By: #### U DINA, LIPID, TSH, BNP, CMP, T7 #### [facility] [address] [place] [address] Dr. Suzie Brooks LYMPH # 3.1 103/ul Normal 1.2-3.8 [facility] Comment on above: Performed By: #### U DINA, LIPID, TSH, BNP, CMP, T7 #### [facility] [address] [place] [address] Dr. Suzie Brooks Lymphocytes/100 WBC (Bld) 28.2 % Normal 20.5-60.0 [facility] Comment on above: Performed By: #### U DINA, LIPID, TSH, BNP, CMP, T7 #### [facility] [address] [address] [address] Suzie Brooks MANUAL DIFF REQ NO Normal [facility] Comment on above: Performed By: #### U DINA, LIPID, TSH, BNP, CMP, T7 #### [facility] [address] [address] [address] Suzie Brooks MCH (RBC) [Entitic mass] 28.5 pg Normal 25.9-34.0 [facility] Comment on above: Performed By: #### U DINA, LIPID, TSH, BNP, CMP, T7 #### [facility] [address] [place] [address] Dr. Suzie Brooks MCHC (RBC) [Mass/Vol] 33.6 g/dL Normal 29.9-35.2 [facility] Comment on above: Performed By: #### U DINA, LIPID, TSH, BNP, CMP, T7 #### [facility] [address] [place] [address] Dr. Suzie Brooks MCV (RBC) [Entitic vol] 85.0 fL Normal 80.0-94.0 [facility] Comment on above: Performed By: #### U DINA, LIPID, TSH, BNP, CMP, T7 #### [facility] [address] [place] [address] Dr. Suzie Brooks MONO # 0.8 103/ul Normal 0.3-0.8 [facility] Comment on above: Performed By: #### U DINA, LIPID, TSH, BNP, CMP, T7 #### [facility] [address] [place] [address] Dr. Suzie Brooks Monocytes/100 WBC (Bld) 7.2 % Normal 1.7-12.0 [facility] Comment on above: Performed By: #### U DINA, LIPID, TSH, BNP, CMP, T7 #### [facility] [address] [place] [address] Dr. Suzie Brooks NEUT # 6.7 103/ul Critically high 1.4-6.5 [facility] Comment on above: Performed By: #### U DINA, LIPID, TSH, BNP, CMP, T7 #### [facility] [address] [address] [address] Suzie Brooks Neutrophils/100 WBC (Bld) 60.5 % Normal 43.0-75.0 [facility] Comment on above: Performed By: #### U DINA, LIPID, TSH, BNP, CMP, T7 #### [facility] [address] [address] [address] Suzie Brooks Platelet mean volume (Bld) [Entitic vol] 9.6 fL Normal 9.5-13.5 [facility] Comment on above: Performed By: #### U DINA, LIPID, TSH, BNP, CMP, T7 #### [facility] [address] [place] [address] Dr. Suzie Brooks PLT 266 103/ul Normal 150-450 [facility] Comment on above: Performed By: #### U DINA, LIPID, TSH, BNP, CMP, T7 #### [facility] [address] [place] [address] Dr. Suzie Brooks RBC 4.94 106/ul Normal 4.70-6.10 [facility] Comment on above: Performed By: #### U DINA, LIPID, TSH, BNP, CMP, T7 #### [facility] [address] [place] [address] Dr. Suzie Brooks WBC 11.1 103/ul Critically high 4.0-11.0 [facility] Comment on above: Performed By: #### U DINA, LIPID, TSH, BNP, CMP, T7 #### [facility] [address] [place] [address] Dr. Suzie Brooks PROF 14(COMP METB)on 022 Albumin [Mass/Vol] 3.2 g/dL Critically low 3.4-5.0 [facility] Comment on above: Performed By: #### C VDTBH #### [facility] [address] [place] [address] Dr. Suzie Brooks Albumin/Globulin [Mass ratio] 0.9 {ratio} Normal [facility] Comment on above: Performed By: #### C VDTBH #### [facility] [address] [address] [address] Suzie Brooks ALP [Catalytic activity/Vol] 60 U/L Normal 46-116 [facility] Comment on above: Performed By: #### C VDTBH #### [facility] [address] [address] [address] Suzie Brooks ALT [Catalytic activity/Vol] 27 U/L Normal 16-63 [facility] Comment on above: Performed By: #### C VDTBH #### [facility] [address] [address] [address] Suzie Brooks Anion gap [Moles/Vol] 10.4 mmol/L Normal [facility] Comment on above: Performed By: #### C VDTBH #### [facility] [address] [place] [address] Dr. Suzie Brooks AST [Catalytic activity/Vol] 23 U/L Normal 15-37 [facility] Comment on above: Performed By: #### C VDTBH #### [facility] [address] [address] [address] Suzie Brooks Bilirubin [Mass/Vol] 0.4 mg/dL Normal 0.2-1.0 [facility] Comment on above: Performed By: #### C VDTBH #### [facility] [address] [place] [address] Dr. Suzie Brooks Calcium [Mass/Vol] 8.4 mg/dL Critically low 8.5-10.1 [facility] Comment on above: Performed By: #### C VDTBH #### [facility] [address] [place] [address] Dr. Suzie Brooks Chloride [Moles/Vol] 104 mmol/L Normal 98-107 [facility] Comment on above: Performed By: #### C VDTBH #### [facility] [address] [address] [address] Suzie Brooks CO2 [Moles/Vol] 26.1 mmol/L Normal 21.0-32.0 [facility] Comment on above: Performed By: #### C VDTBH #### [facility] [address] [address] [address] Suzie Brooks Creatinine [Mass/Vol] 0.90 mg/dL Normal 0.70-1.30 [facility] Comment on above: Performed By: #### C VDTBH #### [facility] [address] [place] [address] Dr. Suzie Brooks EGFR-AF CITIZEN [place] >60 Normal >=60 [facility] Comment on above: Performed By: #### C VDTBH #### [facility] [address] [address] [address] Suzie Brooks EGFR-NON AF CITIZEN OF [place] >60 Normal >=60 [facility] Comment on above: Performed By: #### C VDTBH #### [facility] [address] [place] [address] Dr. Suzie Brooks Globulin (S) [Mass/Vol] 3.4 g/dL Normal [facility] Comment on above: Performed By: #### C VDTBH #### [facility] [address] [place] [address] Dr. Suzie Brooks Glucose [Mass/Vol] 111 mg/dL Critically high 74-106 [facility] Comment on above: Performed By: #### C VDTBH #### [facility] [address] [place] [address] Dr. Suzie Brooks Potassium [Moles/Vol] 3.5 mmol/L Normal 3.5-5.1 [facility] Comment on above: Performed By: #### C VDTBH #### [facility] [address] [place] [address] Dr. Suzie Brooks Protein [Mass/Vol] 6.6 g/dL Normal 6.4-8.2 [facility] Comment on above: Performed By: #### C VDTBH #### [facility] [address] [place] [address] Dr. Suzie Brooks Sodium [Moles/Vol] 137 mmol/L Normal 136-145 [facility] Comment on above: Performed By: #### C VDTBH #### [facility] [address] [place] [address] Dr. Suzie Brooks Urea nitrogen [Mass/Vol] 13.0 mg/dL Normal 7.0-18.0 [facility] Comment on above: Performed By: #### C VDTBH #### [facility] [address] [place] [address] Dr. Suzie Brooks Urea nitrogen/Creatinine [Mass ratio] 14.4 mg/mg Normal [facility] Comment on above: Performed By: #### C VDTBH #### [facility] [address] [place] [address] Dr. Suzie Brooks BNPon 07-26-2022 Natriuretic peptide B (Bld) [Mass/Vol] 118.0 pg/mL Normal <=900.0 [facility] Comment on above: Performed By: #### U DINA, LIPID, TSH, BNP, CMP, T7 #### [facility] [address] [place] [address] Dr. Suzie Brooks CARDIAC MJ 3-6on 2 CK [Catalytic activity/Vol] 240 U/L Normal 39-308 [facility] Comment on above: Performed By: #### U DINA, LIPID, TSH, BNP, CMP, T7 #### [facility] [address] [place] [address] Dr. Suzie Brooks CK.MB [Mass/Vol] 3.43 ng/mL Normal <=3.60 [facility] Comment on above: Performed By: #### U DINA, LIPID, TSH, BNP, CMP, T7 #### [facility] [address] [place] [address] Dr. Suzie Brooks HSTROP 8.6 pg/mL Normal 4.0-76.1 [facility] Comment on above: Result Comment: CUT- OFF POINTS HAVE BEEN ESTABLISHED BASED ON THE FOURTH UNIVERSAL DEFINITIONS OF MYOCARDIAL INFARCTION. THE UPPER REFERENCE LIMIT (URL) OF TROPONIN, DEFINED THE 99TH PERCENTILE OF cTnI DISTRIBUTION IN A REFERENCE POPULATION, HAS BEEN CONFIRMED THE DECISION THRESHOLD FOR NM DIAGNOSIS. Performed By: #### U DINA, LIPID, TSH, BNP, CMP, T7 #### [facility] [address] [address] [address] Suzie Brooks CK [Catalytic activity/Vol] 239 U/L Normal 39-308 [facility] Comment on above: Performed By: #### M AG24 #### [facility] [address] [place] [address] Dr. Suzie Brooks CK.MB [Mass/Vol] 2.93 ng/mL Normal <=3.60 [facility] Comment on above: Performed By: #### M AG24 #### [facility] [address] [place] [address] Dr. Suzie Brooks HSTROP 10.4 pg/mL Normal 4.0-76.1 [facility] Comment on above: Result Comment: CUT- OFF POINTS HAVE BEEN ESTABLISHED BASED ON THE FOURTH UNIVERSAL DEFINITIONS OF MYOCARDIAL INFARCTION. THE UPPER REFERENCE LIMIT (URL) OF TROPONIN, DEFINED THE 99TH PERCENTILE OF cTnI DISTRIBUTION IN A REFERENCE POPULATION, HAS BEEN CONFIRMED THE DECISION THRESHOLD FOR NM DIAGNOSIS. Performed By: #### M AG24 #### [facility] [address] [place] [address] Dr. Suzie Brooks CARDIAC MJ ADMITon 07-26- 022 CK [Catalytic activity/Vol] 234 U/L Normal 39-308 [facility] Comment on above: Performed By: #### O X24HR #### [facility] [address] [place] [address] Dr. Suzie Brooks CK.MB [Mass/Vol] 3.37 ng/mL Normal <=3.60 [facility] Comment on above: Performed By: #### O X24HR #### [facility] [address] [place] [address] Dr. Suzie Brooks HSTROP 9.0 pg/mL Normal 4.0-76.1 [facility] Comment on above: Result Comment: CUT- OFF POINTS HAVE BEEN ESTABLISHED BASED ON THE FOURTH UNIVERSAL DEFINITIONS OF MYOCARDIAL INFARCTION. THE UPPER REFERENCE LIMIT (URL) OF TROPONIN, DEFINED THE 99TH PERCENTILE OF cTnI DISTRIBUTION IN A REFERENCE POPULATION, HAS BEEN CONFIRMED THE DECISION THRESHOLD FOR NM DIAGNOSIS. Performed By: #### O X24HR #### [facility] [address] [address] [address] Suzie Brooks EDIE 85 ng/mL Normal 16-96 [facility] Comment on above: Performed By: #### O X24HR #### [facility] [address] [place] [address] Dr. Suzie Brooks CBC AUTO DIFFon 07-26-2022 BASO # 0.1 103/ul Normal 0.0-0.1 [facility] Comment on above: Performed By: #### U DINA, LIPID, TSH, BNP, CMP, T7 #### [facility] [address] [place] [address] Dr. Suzie Brooks Basophils/100 WBC (Bld) 0.4 % Normal 0.2-2.0 [facility] Comment on above: Performed By: #### U DINA, LIPID, TSH, BNP, CMP, T7 #### [facility] [address] [place] [address] Dr. Suzie Brooks EO # 0.3 103/ul Normal 0.0-0.7 [facility] Comment on above: Performed By: #### U DINA, LIPID, TSH, BNP, CMP, T7 #### [facility] [address] [place] [address] Dr. Suzie Brooks Eosinophils/100 WBC (Bld) 2.5 % Normal 0.9-7.0 [facility] Comment on above: Performed By: #### U DINA, LIPID, TSH, BNP, CMP, T7 #### [facility] [address] [place] [address] Dr. Suzie Brooks Erythrocyte distribution width (RBC) [Ratio] 14.4 % Normal 11.0-15.0 [facility] Comment on above: Performed By: #### U DINA, LIPID, TSH, BNP, CMP, T7 #### [facility] [address] [place] [address] Dr. Suzie Brooks Hematocrit (Bld) [Volume fraction] 46.0 % Normal 42.0-54.0 [facility] Comment on above: Performed By: #### U DINA, LIPID, TSH, BNP, CMP, T7 #### [facility] [address] [place] [address] Dr. Suzie Brooks Hemoglobin (Bld) [Mass/Vol] 15.6 g/dL Normal 14.0-18.0 [facility] Comment on above: Performed By: #### U DINA, LIPID, TSH, BNP, CMP, T7 #### [facility] [address] [address] [address] Suzie Brooks IG # 0.07 10e3/ul Critically high 0.00-0.[address] [facility] Comment on above: Performed By: #### U DINA, LIPID, TSH, BNP, CMP, T7 #### [facility] [address] [address] [address] Suzie Brooks IG % 0.6 % Critically high 0.0-0.5 [facility] Comment on above: Performed By: #### U DINA, LIPID, TSH, BNP, CMP, T7 #### [facility] [address] [place] [address] Dr. Suzie Brooks LYMPH # 2.9 103/ul Normal 1.2-3.8 [facility] Comment on above: Performed By: #### U DINA, LIPID, TSH, BNP, CMP, T7 #### [facility] [address] [address] [address] Suzie Brooks Lymphocytes/100 WBC (Bld) 24.2 % Normal 20.5-60.0 [facility] Comment on above: Performed By: #### U DINA, LIPID, TSH, BNP, CMP, T7 #### [facility] [address] [place] [address] Dr. Suzie Brooks MANUAL DIFF REQ NO Normal [facility] Comment on above: Performed By: #### U DINA, LIPID, TSH, BNP, CMP, T7 #### [facility] [address] [address] [address] Suzie Brooks MCH (RBC) [Entitic mass] 28.6 pg Normal 25.9-34.0 [facility] Comment on above: Performed By: #### U DINA, LIPID, TSH, BNP, CMP, T7 #### [facility] [address] [place] [address] Dr. Suzie Brooks MCHC (RBC) [Mass/Vol] 33.9 g/dL Normal 29.9-35.2 [facility] Comment on above: Performed By: #### U DINA, LIPID, TSH, BNP, CMP, T7 #### [facility] [address] [place] [address] Dr. Suzie Brooks MCV (RBC) [Entitic vol] 84.4 fL Normal 80.0-94.0 [facility] Comment on above: Performed By: #### U DINA, LIPID, TSH, BNP, CMP, T7 #### [facility] [address] [place] [address] Dr. Suzie Brooks MONO # 0.8 103/ul Normal 0.3-0.8 [facility] Comment on above: Performed By: #### U DINA, LIPID, TSH, BNP, CMP, T7 #### [facility] [address] [place] [address] Dr. Suzie Brooks Monocytes/100 WBC (Bld) 6.7 % Normal 1.7-12.0 [facility] Comment on above: Performed By: #### U DIAN, LIPID, TSH, BNP, CMP, T7 #### [facility] [address] [place] [address] Dr. Suzie Brooks NEUT # 7.8 103/ul Critically high 1.4-6.5 [facility] Comment on above: Performed By: #### U DINA, LIPID, TSH, BNP, CMP, T7 #### [facility] [address] [place] [address] Dr. Suzie Brooks Neutrophils/100 WBC (Bld) 65.6 % Normal 43.0-75.0 [facility] Comment on above: Performed By: #### U DINA, LIPID, TSH, BNP, CMP, T7 #### [facility] [address] [place] [address] Dr. Suzie Brooks Platelet mean volume (Bld) [Entitic vol] 9.7 fL Normal 9.5-13.5 [facility] Comment on above: Performed By: #### U DINA, LIPID, TSH, BNP, CMP, T7 #### [facility] [address] [place], [place] [address] Dr. Suzie Brooks PLT 289 103/ul Normal 150-450 [facility] Comment on above: Performed By: #### U DINA, LIPID, TSH, BNP, CMP, T7 #### [facility] [address] [address] [address] Suzie Brooks RBC 5.45 106/ul Normal 4.70-6.10 [facility] Comment on above: Performed By: #### U DINA, LIPID, TSH, BNP, CMP, T7 #### [facility] [address] [place], [place] [address] Dr. Suzie Brooks WBC 11.9 103/ul Critically high 4.0-11.0 [facility] Comment on above: Performed By: #### U DNIA, LIPID, TSH, BNP, CMP, T7 #### [facility] [address] [place], [place] [address] Dr. Suzie Brooks CTA CHEST WO W CONon 022 CTA CHEST WO W CON EXAMINATION: CTA CALLIE ST WO W CON HISTORY: CHEST PAIN, [...] BEHZAD CARRASQUILLO Date: 2022-07-26 11:59 Normal [facility] Covid-19 PCR (CVDTBH)on 07-11 SARS-CoV-2 (COVID-19) RNA SUKHJINDER+probe Ql (Unsp spec) Not detected Normal NOT DETECTED [facility] Comment on above: Result Comment: [...] for this test is supported by the Personnel Counselor of Health and Human Service's declaration that [...] DINA, LIPID, TSH, BNP, CMP, T7 #### [facility] [address] [place] [address] Dr. uSzie Brooks D-DIMERon 07-26-2022 D-DIMER 0.88 mg/L FEU Critically high <=0.59 [facility] Comment on above: Performed By: #### C VDTB #### [facility] [address] [place] [address] Dr. Suzie Brooks D-DIMER COMMENTS SEE BELOW Normal [facility] Comment on above: Result Comment: Incr eases [...] hospitalization. Performed By: #### C VDTB #### [facility] [address] [place] [address] Dr. Suzie Brooks ECHOCARDIO M/2D COMPLETEon 1 09-26-2021 ECHOCARDIO M/2D COMPLETE Patient: RIZWAN APARICIO Exam Date: 07/26/2022 : 1950 Gender:M Ordering : DR MARIELLE LERMA . Admission #: [id number] Family : Order #: [id number] CLICK HERE TO VIEW EXAM ECHOCARDIOGRAM REPORT [...] Rios M.D. on 07/26/2022 at 16:22 Normal [facility] PROF 14(COMP METB)on 022 Albumin [Mass/Vol] 3.6 g/dL Normal 3.4-5.0 [facility] Comment on above: Performed By: #### U DINA, LIPID, TSH, BNP, CMP, T7 #### [facility] [address] [address] [address] Suzie Brooks Albumin/Globulin [Mass ratio] 0.9 {ratio} Normal [facility] Comment on above: Performed By: #### U DINA, LIPID, TSH, BNP, CMP, T7 #### [facility] [address] [address] [address] Suzie Brooks ALP [Catalytic activity/Vol] 70 U/L Normal 46-116 [facility] Comment on above: Performed By: #### U DINA, LIPID, TSH, BNP, CMP, T7 #### [facility] [address] [place], [place] [address] Dr. Suzie Brooks ALT [Catalytic activity/Vol] 30 U/L Normal 16-63 [facility] Comment on above: Performed By: #### U DINA, LIPID, TSH, BNP, CMP, T7 #### [facility] [address] [place] [address] Dr. Suzie Brooks Anion gap [Moles/Vol] 9.2 mmol/L Normal [facility] Comment on above: Performed By: #### U DINA, LIPID, TSH, BNP, CMP, T7 #### [facility] [address] [place] [address] Dr. Suzie Brooks AST [Catalytic activity/Vol] 29 U/L Normal 15-37 [facility] Comment on above: Performed By: #### U DINA, LIPID, TSH, BNP, CMP, T7 #### [facility] [address] [place] [address] Dr. Suzie Brooks Bilirubin [Mass/Vol] 0.5 mg/dL Normal 0.2-1.0 [facility] Comment on above: Performed By: #### U DINA, LIPID, TSH, BNP, CMP, T7 #### [facility] [address] [place] [address] Dr. Suzie Brooks Calcium [Mass/Vol] 8.8 mg/dL Normal 8.5-10.1 [facility] Comment on above: Performed By: #### U DINA, LIPID, TSH, BNP, CMP, T7 #### [facility] [address] [place] [address] Dr. Suzie Brooks Chloride [Moles/Vol] 102 mmol/L Normal 98-107 [facility] Comment on above: Performed By: #### U DINA, LIPID, TSH, BNP, CMP, T7 #### [facility] [address] [place] [address] Dr. Suzie Brooks CO2 [Moles/Vol] 27.2 mmol/L Normal 21.0-32.0 [facility] Comment on above: Performed By: #### U DINA, LIPID, TSH, BNP, CMP, T7 #### [facility] [address] [place] [address] Dr. Suzie Brooks Creatinine [Mass/Vol] 0.99 mg/dL Normal 0.70-1.30 [facility] Comment on above: Performed By: #### U DINA, LIPID, TSH, BNP, CMP, T7 #### [facility] [address] [address] [address] Suzie Brooks EGFR-AF [place]IZ[place] >60 Normal >=60 [facility] Comment on above: Performed By: #### U DINA, LIPID, TSH, BNP, CMP, T7 #### [facility] [address] [address] [address] Suzie Brooks EGFR-NON AF [place]IZ[place] >60 Normal >=60 [facility] Comment on above: Performed By: #### U DINA, LIPID, TSH, BNP, CMP, T7 #### [facility] [address] [place] [address] Dr. Suzie Brooks Globulin (S) [Mass/Vol] 3.9 g/dL Normal [facility] Comment on above: Performed By: #### U DINA, LIPID, TSH, BNP, CMP, T7 #### [facility] [address] [address] [address] Suzie Brooks Glucose [Mass/Vol] 125 mg/dL Critically high 74-106 [facility] Comment on above: Performed By: #### U DINA, LIPID, TSH, BNP, CMP, T7 #### [facility] [address] [place] [address] Dr. Suzie Brooks Potassium [Moles/Vol] 3.4 mmol/L Critically low 3.5-5.1 [facility] Comment on above: Performed By: #### U DINA, LIPID, TSH, BNP, CMP, T7 #### [facility] [address] [place] [address] Dr. Suzie Brooks Protein [Mass/Vol] 7.5 g/dL Normal 6.4-8.2 [facility] Comment on above: Performed By: #### U DINA, LIPID, TSH, BNP, CMP, T7 #### [facility] [address] [place] [address] Dr. Suzie Brooks Sodium [Moles/Vol] 135 mmol/L Critically low 136-145 [facility] Comment on above: Performed By: #### U DINA, LIPID, TSH, BNP, CMP, T7 #### [facility] [address] [place] [address] Dr. Suzie Brooks Urea nitrogen [Mass/Vol] 15.0 mg/dL Normal 7.0-18.0 [facility] Comment on above: Performed By: #### U DINA, LIPID, TSH, BNP, CMP, T7 #### [facility] [address] [place] [address] Dr. Suzie Brooks Urea nitrogen/Creatinine [Mass ratio] 15.2 mg/mg Normal [facility] Comment on above: Performed By: #### U DINA, LIPID, TSH, BNP, CMP, T7 #### [facility] [address] [place] [address] Dr. Suzie Brooks PROTIMEon 07-26-2022 INR Coag (PPP) [Relative time] 0.95 {INR} Normal [facility] Comment on above: Performed By: #### C VDTBH #### [facility] [address] [place] [address] Dr. Suzie Brooks INR GUIDELINES SEE BELOW Normal [facility] Comment on above: Result Comment: TOMMY RED INR: 2.0 - 3.0 CONDITIONS NOT LISTED BELOW 2.5 - 3.5 FOR PROSTHETIC HEART VALVE REPLACEMENT 2.5 - 3.5 RECURRENT THROMBOSIS Performed By: #### C VDTBH #### [facility] [address] [place] [address] Dr. Suzie Brooks PT Coag (PPP) [Time] 10.3 s Normal 9.0-11.6 [facility] Comment on above: Performed By: #### C VDTBH #### [facility] [address] [place] [address] Dr. Suzie Brooks PTTon 07-26-2022 aPTT Coag (Bld) [Time] 28.2 s Normal 22.3-36.2 [facility] Comment on above: Performed By: #### C VDTBH #### [facility] [address] [place] [address] Dr. Suzie Brooks TSHon 07-26-2022 TSH 2.000 uIU/mL Normal 0.358-3.740 [facility] Comment on above: Performed By: #### O X24HR #### [facility] [id number] Suzie Brooks XR CHEST 1 Von [...] BEHZAD CARRASQUILLO Date: 2022-07-26 10:51 Normal [facility] CREATININEon 07-18-2022 Creatinine [Mass/Vol] 0.93 mg/dL Normal 0.70-1.30 [facility] Comment on above: Performed By: #### U DINA, LIPID, TSH, BNP, CMP, T7 #### [facility] [id number] Suzie Brooks EGFR-AF CITIZ[place] >60 Normal >=60 [facility] Comment on above: Performed By: #### U DINA, LIPID, TSH, BNP, CMP, T7 #### [facility] [id number] Suzie Brooks EGFR-NON AF [place]IZ[place] >60 Normal >=60 [facility] Comment on above: Performed By: #### U DINA, LIPID, TSH, BNP, CMP, T7 #### [facility] [address] [place], [place] [address] Dr. Suzie Brooks XR IVPon 07-18-2022 XR IVP EXAMINATION: XR IVP HISTORY: Kidney stone COMPARISON: XR KUB 11/21/2021, CT abdomen pelvis 02/16/2022 TECHNIQUE: After obtaining patient consent a supervisor carbon paper coating image was obtained followed by injection of [...] BEHZAD CARRASQUILLO Date: 2022-07-18 11:50 Normal [facility] INSULINon 05-16-2022 Insulin 59.0 uIU/mL Critically high 2.6-24.9 [facility] Comment on above: Performed By: #### U DINA, LIPID, TSH, BNP, CMP, T7 #### [facility] [address] [place] [address] Dr. Suzie Brooks BNPon 05-15-2022 Natriuretic peptide B (Bld) [Mass/Vol] 81.0 pg/mL Normal <=900.0 [facility] Comment on above: Performed By: #### U DINA, LIPID, TSH, BNP, CMP, T7 #### [facility] [address] [address] [address] Suzie Brooks CBC AUTO DIFFon 05-15-2022 BASO # 0.1 103/ul Normal 0.0-0.1 [facility] Comment on above: Performed By: #### C VDTBH #### [facility] [address] [place] [address] Dr. Suzie Brooks Basophils/100 WBC (Bld) 0.6 % Normal 0.2-2.0 [facility] Comment on above: Performed By: #### C VDTBH #### [facility] [address] [place] [address] Dr. Suzie Brooks EO # 0.3 103/ul Normal 0.0-0.7 [facility] Comment on above: Performed By: #### C VDTBH #### [facility] [address] [place] [address] Dr. Suzie Brooks Eosinophils/100 WBC (Bld) 2.9 % Normal 0.9-7.0 [facility] Comment on above: Performed By: #### C VDTBH #### [facility] [address] [place] [address] Dr. Suzie Brooks Erythrocyte distribution width (RBC) [Ratio] 14.1 % Normal 11.0-15.0 [facility] Comment on above: Performed By: #### C VDTBH #### [facility] [address] [place] [address] Dr. Suzie Brooks Hematocrit (Bld) [Volume fraction] 46.7 % Normal 42.0-54.0 [facility] Comment on above: Performed By: #### C VDTBH #### [facility] [address] [place] [address] Dr. Suzie Brooks Hemoglobin (Bld) [Mass/Vol] 15.4 g/dL Normal 14.0-18.0 [facility] Comment on above: Performed By: #### C VDTBH #### [facility] [address] [place] [address] Dr. Suzie Brooks IG # 0.03 10e3/ul Normal 0.00-0.03 [facility] Comment on above: Performed By: #### C VDTBH #### [facility] [address] [place] [address] Dr. Suzie Brooks IG % 0.3 % Normal 0.0-0.5 [facility] Comment on above: Performed By: #### C VDTBH #### [facility] [address] [place] [address] Dr. Suzie Brooks LYMPH # 2.6 103/ul Normal 1.2-3.8 [facility] Comment on above: Performed By: #### C VDTBH #### [facility] [address] [place] [address] Dr. Suzie Brooks Lymphocytes/100 WBC (Bld) 25.1 % Normal 20.5-60.0 [facility] Comment on above: Performed By: #### C VDTBH #### [facility] [address] [place] [address] Dr. Suzie Brooks MANUAL DIFF REQ NO Normal [facility] Comment on above: Performed By: #### C VDTBH #### [facility] [address] [place] [address] Dr. Suzie Brooks MCH (RBC) [Entitic mass] 28.6 pg Normal 25.9-34.0 [facility] Comment on above: Performed By: #### C VDTBH #### [facility] [address] [place] [address] Dr. Suzie Brooks MCHC (RBC) [Mass/Vol] 33.0 g/dL Normal 29.9-35.2 [facility] Comment on above: Performed By: #### C VDTBH #### [facility] [address] [place] [address] Dr. Suzie Brooks MCV (RBC) [Entitic vol] 86.8 fL Normal 80.0-94.0 [facility] Comment on above: Performed By: #### C VDTBH #### [facility] [address] [place] [address] Dr. Suzie Brooks MONO # 0.7 103/ul Normal 0.3-0.8 [facility] Comment on above: Performed By: #### C VDTBH #### [facility] [address] [place] [address] Dr. Suzie Brooks Monocytes/100 WBC (Bld) 6.8 % Normal 1.7-12.0 [facility] Comment on above: Performed By: #### C VDTBH #### [facility] [address] [place] [address] Dr. Suzie Brooks NEUT # 6.5 103/ul Normal 1.4-6.5 [facility] Comment on above: Performed By: #### C VDTBH #### [facility] [address] [address] [address] Suzie Brooks Neutrophils/100 WBC (Bld) 64.3 % Normal 43.0-75.0 [facility] Comment on above: Performed By: #### C VDTBH #### [facility] [address] [address] [address] Suzie Brooks Platelet mean volume (Bld) [Entitic vol] 9.5 fL Normal 9.5-13.5 [facility] Comment on above: Performed By: #### C VDTBH #### [facility] [address] [place] [address] Dr. Suzie Brooks PLT 273 103/ul Normal 150-450 [facility] Comment on above: Performed By: #### C VDTBH #### [facility] [address] [place] [address] Dr. Suzie Brooks RBC 5.38 106/ul Normal 4.70-6.10 [facility] Comment on above: Performed By: #### C VDTBH #### [facility] [address] [place] [address] Dr. Suzie Brooks WBC 10.2 103/ul Normal 4.0-11.0 [facility] Comment on above: Performed By: #### C VDTBH #### [facility] [address] [place] [address] Dr. Suzie Brooks FREE THYROXINE INDEX T7on FTI 2.23 Normal 1.30-4.50 [facility] Comment on above: Performed By: #### U DINA, LIPID, TSH, BNP, CMP, T7 #### [facility] [address] [place] [address] Dr. Suzie Brooks T3U 36.0 % Normal 33.0-40.0 [facility] Comment on above: Performed By: #### U DINA, LIPID, TSH, BNP, CMP, T7 #### [facility] [address] [place] [address] Dr. Suzie Brooks T4 [Mass/Vol] 6.20 ug/dL Normal 4.50-12.10 [facility] Comment on above: Performed By: #### U DINA, LIPID, TSH, BNP, CMP, T7 #### [facility] [address] [address] [address] Suzie Brooks GLYCOHEMOGLOBIN A1Con 2021 ADA RECOMMENDATION SEE BELOW Normal [facility] Comment on above: Result Comment: ADA RECOMMENDED LIMIT 4.0 - 6.0 ADA THERAPEUTIC TARGET < 7.0 ACTION SUGGESTED > 7.0 Performed By: #### U DINA, LIPID, TSH, BNP, CMP, T7 #### [facility] [address] [address] [address] Suzie Brooks Glucose [Mass/Vol] 111 mg/dL Normal [facility] Comment on above: Performed By: #### U DINA, LIPID, TSH, BNP, CMP, T7 #### [facility] [address] [address] [address] Suzie Brooks HbA1c (Bld) [Mass fraction] 5.5 % Normal 4.5-6.2 [facility] Comment on above: Performed By: #### U DINA, LIPID, TSH, BNP, CMP, T7 #### [facility] [address] [address] [address] Suzie Brooks LIPID PROFILEon 05-15-2022 CHOL-HDL RATIO NORM SEE BELOW Normal [facility] Comment on above: Result Comment: 3.3 - 4.4 LOW RISK 4.4 - 7.1 AVERAGE RISK 7.1 - 11.0 MODERATE RISK >11.0 HIGH RISK Performed By: #### U DINA, LIPID, TSH, BNP, CMP, T7 #### [facility] [address] [address] [address] Suzie Brooks Cholesterol [Mass/Vol] 136 mg/dL Normal <=200 [facility] Comment on above: Performed By: #### U DINA, LIPID, TSH, BNP, CMP, T7 #### [facility] [address] [address] [address] Suzie Brooks Cholesterol in HDL [Mass/Vol] 34 mg/dL Critically low 40-60 [facility] Comment on above: Performed By: #### U DINA, LIPID, TSH, BNP, CMP, T7 #### [facility] [address] [address] [address] Suzie Brooks Cholesterol in LDL [Mass/Vol] 49.8 mg/dL Normal [facility] Comment on above: Performed By: #### U DINA, LIPID, TSH, BNP, CMP, T7 #### [facility] [address] [address] [address] Suzie Brooks Cholesterol.total/Ch olesterol in HDL [Mass ratio] 4.0 {ratio} Normal [facility] Comment on above: Performed By: #### U DINA, LIPID, TSH, BNP, CMP, T7 #### [facility] [address] [address] [address] Suzie Brooks HDL NORMAL > or = 60 mg/dl - LO W CARDIOVASCULAR RISK <40 mg/dl - HIGH CARDIOVASCULAR RISK Normal [facility] Comment on above: Performed By: #### U DINA, LIPID, TSH, BNP, CMP, T7 #### [facility] [address] [address] [address] Suzie Brooks LDL CALC NORMAL SEE BELOW Normal [facility] Comment on above: Result Comment: <100 mg/dl OPTIMAL 100 - 129 mg/dl NEAR OR ABOVE OPTIMAL 130 - 159 mg/dl BORDERLINE HIGH 160 - 189 mg/dl HIGH >190 mg/dl VERY HIGH Performed By: #### U DINA, LIPID, TSH, BNP, CMP, T7 #### [facility] [address] [address] [address] Suzie Brooks Triglyceride [Mass/Vol] 261 mg/dL Critically high <=150 [facility] Comment on above: Performed By: #### U DINA, LIPID, TSH, BNP, CMP, T7 #### [facility] [address] [address] [address] Suzie Brooks VLDL CALC 52.2 mg/dL Normal [facility] Comment on above: Performed By: #### U DINA, LIPID, TSH, BNP, CMP, T7 #### [facility] [address] [address] [address] Suzie Brooks PROF 14(COMP METB)on 022 Albumin [Mass/Vol] 3.6 g/dL Normal 3.4-5.0 [facility] Comment on above: Performed By: #### U DINA, LIPID, TSH, BNP, CMP, T7 #### [facility] [address] [place] [address] Dr. Suzie Brooks Albumin/Globulin [Mass ratio] 0.9 {ratio} Normal [facility] Comment on above: Performed By: #### U DINA, LIPID, TSH, BNP, CMP, T7 #### [facility] [address] [place] [address] Dr. Suzie Brooks ALP [Catalytic activity/Vol] 60 U/L Normal 46-116 [facility] Comment on above: Performed By: #### U DINA, LIPID, TSH, BNP, CMP, T7 #### [facility] [address] [place] [address] Dr. Suzie Brooks ALT [Catalytic activity/Vol] 36 U/L Normal 16-63 [facility] Comment on above: Performed By: #### U DINA, LIPID, TSH, BNP, CMP, T7 #### [facility] [address] [place] [address] Dr. Suzie Brooks Anion gap [Moles/Vol] 11.7 mmol/L Normal [facility] Comment on above: Performed By: #### U DINA, LIPID, TSH, BNP, CMP, T7 #### [facility] [address] [place] [address] Dr. Suzie Brooks AST [Catalytic activity/Vol] 28 U/L Normal 15-37 [facility] Comment on above: Performed By: #### U DINA, LIPID, TSH, BNP, CMP, T7 #### [facility] [address] [address] [address] Suzie Brooks Bilirubin [Mass/Vol] 0.6 mg/dL Normal 0.2-1.0 [facility] Comment on above: Performed By: #### U DINA, LIPID, TSH, BNP, CMP, T7 #### [facility] [address] [address] [address] Suzie Brooks Calcium [Mass/Vol] 8.8 mg/dL Normal 8.5-10.1 [facility] Comment on above: Performed By: #### U DINA, LIPID, TSH, BNP, CMP, T7 #### [facility] [address] [address] [address] Suzie Brooks Chloride [Moles/Vol] 102 mmol/L Normal 98-107 [facility] Comment on above: Performed By: #### U DINA, LIPID, TSH, BNP, CMP, T7 #### [facility] [address] [address] [address] Suzie Brooks CO2 [Moles/Vol] 27.9 mmol/L Normal 21.0-32.0 [facility] Comment on above: Performed By: #### U DINA, LIPID, TSH, BNP, CMP, T7 #### [facility] [address] [place] [address] Dr. Suzie Brooks Creatinine [Mass/Vol] 0.98 mg/dL Normal 0.70-1.30 [facility] Comment on above: Performed By: #### U DINA, LIPID, TSH, BNP, CMP, T7 #### [facility] [address] [place] [address] Dr. Suzie Brooks EGFR-AF CITIZEN [place] >60 Normal >=60 [facility] Comment on above: Performed By: #### U DINA, LIPID, TSH, BNP, CMP, T7 #### [facility] [address] [place] [address] Dr. Suzie Brooks EGFR-NON AF CITIZEN OF [place] >60 Normal >=60 [facility] Comment on above: Performed By: #### U DINA, LIPID, TSH, BNP, CMP, T7 #### [facility] [address] [address] [address] Suzie Brooks Globulin (S) [Mass/Vol] 3.8 g/dL Normal [facility] Comment on above: Performed By: #### U DINA, LIPID, TSH, BNP, CMP, T7 #### [facility] [address] [address] [address] Suzie Brooks Glucose [Mass/Vol] 107 mg/dL Critically high 74-106 [facility] Comment on above: Performed By: #### U DINA, LIPID, TSH, BNP, CMP, T7 #### [facility] [address] [address] [address] Suzie Brooks Potassium [Moles/Vol] 3.6 mmol/L Normal 3.5-5.1 [facility] Comment on above: Performed By: #### U DINA, LIPID, TSH, BNP, CMP, T7 #### [facility] [address] [place] [address] Dr. Suzie Brooks Protein [Mass/Vol] 7.4 g/dL Normal 6.4-8.2 [facility] Comment on above: Performed By: #### U DINA, LIPID, TSH, BNP, CMP, T7 #### [facility] [address] [place] [address] Dr. Suzie Brooks Sodium [Moles/Vol] 138 mmol/L Normal 136-145 [facility] Comment on above: Performed By: #### U DINA, LIPID, TSH, BNP, CMP, T7 #### [facility] [address] [place] [address] Dr. Suzie Brooks Urea nitrogen [Mass/Vol] 12.0 mg/dL Normal 7.0-18.0 [facility] Comment on above: Performed By: #### U DINA, LIPID, TSH, BNP, CMP, T7 #### [facility] [address] [place] [address] Dr. Suzie Brooks Urea nitrogen/Creatinine [Mass ratio] 12.2 mg/mg Normal [facility] Comment on above: Performed By: #### U DINA, LIPID, TSH, BNP, CMP, T7 #### [facility] [address] [place] [address] Dr. Suzie Brooks TSHon 05-15-2022 TSH 2.356 uIU/mL Normal 0.358-3.740 [facility] Comment on above: Performed By: #### U DINA, LIPID, TSH, BNP, CMP, T7 #### [facility] [address] [place] [address] Dr. Suzie Brooks URIC ACID SERUMon 05-15-2022 Urate [Mass/Vol] 5.2 mg/dL Normal 3.5-7.2 [facility] Comment on above: Performed By: #### U DINA, LIPID, TSH, BNP, CMP, T7 #### [facility] [address] [address] [address] Suzie Brooks CALCULI, URINARYon 2 2,8 Dihydroxyadenine Normal [facility] Comment on above: Performed By: #### U DINA, LIPID, TSH, BNP, CMP, T7 #### [facility] [address] [address] [address] Suzie Brooks Ammonium Acid Urate Normal [facility] Comment on above: Performed By: #### U DINA, LIPID, TSH, BNP, CMP, T7 #### [facility] [address] [address] [address] Suzie Brooks Bilirubin Ql (U) Normal [facility] Comment on above: Performed By: #### U DINA, LIPID, TSH, BNP, CMP, T7 #### [facility] [address] [address] [address] Suzie Brooks Ca Oxalate Dihydrate Normal [facility] Comment on above: Performed By: #### U DINA, LIPID, TSH, BNP, CMP, T7 #### [facility] [address] [address] [address] Suzie Brooks CaHPO4 (Brushite) Normal [facility] Comment on above: Performed By: #### U DINA, LIPID, TSH, BNP, CMP, T7 #### [facility] [address] [address] [address] Suzie Brooks Calcium Bilirubinate Normal [facility] Comment on above: Performed By: #### U DINA, LIPID, TSH, BNP, CMP, T7 #### [facility] [address] [address] [address] Suzie Brooks Calcium Carbonate Normal [facility] Comment on above: Performed By: #### U DINA, LIPID, TSH, BNP, CMP, T7 #### [facility] [address] [address] [address] Suzie Brooks Calcium Oxalate Monohydrate 70 % Normal [facility] Comment on above: Performed By: #### U DINA, LIPID, TSH, BNP, CMP, T7 #### [facility] [address] [address] [address] Suzie Brooks Calcium Palmitate Normal [facility] Comment on above: Performed By: #### U DINA, LIPID, TSH, BNP, CMP, T7 #### [facility] [address] [address] [address] Suzie Brooks Calcium Phosphate Normal [facility] Comment on above: Performed By: #### U DINA, LIPID, TSH, BNP, CMP, T7 #### [facility] [address] [address] [address] Suzie Brooks Calcium Stearate Normal [facility] Comment on above: Performed By: #### U DINA, LIPID, TSH, BNP, CMP, T7 #### [facility] [address] [address] [address] Suzie Brooks Carbonate Apatite Normal [facility] Comment on above: Performed By: #### U DINA, LIPID, TSH, BNP, CMP, T7 #### [facility] [address] [address] [address] Suzie Brooks Cellular Material Normal [facility] Comment on above: Performed By: #### U DINA, LIPID, TSH, BNP, CMP, T7 #### [facility] [address] [address] [address] Suzie Brooks Cholesterol Normal [facility] Comment on above: Performed By: #### U DINA, LIPID, TSH, BNP, CMP, T7 #### [facility] [address] [address] [address] Suzie Brooks Color (U) Brown Normal [facility] Comment on above: Performed By: #### U DINA, LIPID, TSH, BNP, CMP, T7 #### [facility] [address] [address] [address] Suzie Brooks Comment [facility] Comment on above: Performed By: #### U DINA, LIPID, TSH, BNP, CMP, T7 #### [facility] [address] [address] [address] Suzie Brooks Comment Comment Normal [facility] Comment on above: Result Comment: Calc ulus received in liquid. Wet calculi must be dried before analysis, which delays reporting of results. Leaving calculi in liquid (such as water, saline, blood, urine) may lead to changes in composition. Performed By: #### U DINA, LIPID, TSH, BNP, CMP, T7 #### [facility] [address] [address] [address] Suzie Brooks Comment: Comment Normal [facility] Comment on above: Result Comment: Fantasma baez questions regarding Calculi Analysis contact [facility] at: [phone]. Performed By: #### U DINA, LIPID, TSH, BNP, CMP, T7 #### [facility] [address] [address] [address] Suzie Brooks Composition Comment Normal [facility] Comment on above: Result Comment: Perc entage (Represents the % composition) Performed By: #### U DINA, LIPID, TSH, BNP, CMP, T7 #### [facility] [address] [address] [address] Suzie Brooks Cystine Normal [facility] Comment on above: Performed By: #### U DINA, LIPID, TSH, BNP, CMP, T7 #### [facility] [address] [address] [address] Suzie Brooks Disclaimer: Comment Normal [facility] Comment on above: Result Comment: This test was developed and its performance characteristics determined by [facility]. It has not been cleared or approved by the Food and Drug Administration. Performed By: #### U DINA, LIPID, TSH, BNP, CMP, T7 #### [facility] [address] [address] [address] Suzie Brooks Dried Blood Normal [facility] Comment on above: Performed By: #### U DINA, LIPID, TSH, BNP, CMP, T7 #### [facility] [address] [address] [address] Suzie Brooks Drug or Metabolite Normal [facility] Comment on above: Performed By: #### U DINA, LIPID, TSH, BNP, CMP, T7 #### [facility] [address] [address] [address] Suzie Brooks Hydroxyapatite Normal [facility] Comment on above: Performed By: #### U DINA, LIPID, TSH, BNP, CMP, T7 #### [facility] [address] [address] [address] Suzie Brooks Mg NH4 PO4 (Struvite) [facility] Comment on above: Performed By: #### U DINA, LIPID, TSH, BNP, CMP, T7 #### [facility] [address] [address] [address] Suzie Brooks MgHPO4 (Newberyite) [facility] Comment on above: Performed By: #### U DINA, LIPID, TSH, BNP, CMP, T7 #### [facility] [address] [address] [address] Suzie Brooks Other component(s) Normal [facility] Comment on above: Performed By: #### U DINA, LIPID, TSH, BNP, CMP, T7 #### [facility] [address] [address] [address] Suzie Brooks PDF . [facility] Comment on above: Performed By: #### U DINA, LIPID, TSH, BNP, CMP, T7 #### [facility] [address] [address] [address] Suzie Brooks Photo Comment [facility] Comment on above: Result Comment: Phot ograph will follow under a separate cover Performed By: #### U DINA, LIPID, TSH, BNP, CMP, T7 #### [facility] [address] [address] [address] Suzie Brooks Please note: Comment [facility] Comment on above: Result Comment: Calc shamika report will follow via computer, mail or websphere message broker developer delivery. Performed By: #### U DINA, LIPID, TSH, BNP, CMP, T7 #### [facility] [address] [address] [address] Suzie Brooks Size [address] [facility] Comment on above: Result Comment: Mult iple pieces received. Dimensions of the largest piece reported. Performed By: #### U DINA, LIPID, TSH, BNP, CMP, T7 #### [facility] [address] [address] [address] Suzie Brooks Sodium Acid Urate Normal [facility] Comment on above: Performed By: #### U DINA, LIPID, TSH, BNP, CMP, T7 #### [facility] [address] [address] [address] Suzie Brooks Source Comment [facility] Comment on above: Result Comment: Not provided Performed By: #### U DINA, LIPID, TSH, BNP, CMP, T7 #### [facility] [address] [address] [address] Suzie Brooks Triamterene [facility] Comment on above: Performed By: #### U DINA, LIPID, TSH, BNP, CMP, T7 #### [facility] [address] [address] [address] Suzie Brooks Uric Acid 30 % [facility] Comment on above: Performed By: #### U DINA, LIPID, TSH, BNP, CMP, T7 #### [facility] [address] [address] [address] Suzie Brooks Uric Acid Dihydrate Normal [facility] Comment on above: Performed By: #### U DINA, LIPID, TSH, BNP, CMP, T7 #### [facility] [address] [address] [address] Suzie Brooks Weight [address] [facility] Comment on above: Performed By: #### U DINA, LIPID, TSH, BNP, CMP, T7 #### [facility] [address] [address] [address] Suzie Brooks Xanthine Normal [facility] Comment on above: Performed By: #### U DINA, LIPID, TSH, BNP, CMP, T7 #### [facility] [address] [address] [address] Suzie Brooks CBC AUTO DIFFon 02-18-2022 BASO # 0.0 103/ul Normal 0.0-0.1 [facility] Comment on above: Performed By: #### U DINA, LIPID, TSH, BNP, CMP, T7 #### [facility] [address] [place] [address] Dr. Suzie Brooks Basophils/100 WBC (Bld) 0.3 % Normal 0.2-2.0 [facility] Comment on above: Performed By: #### U DINA, LIPID, TSH, BNP, CMP, T7 #### [facility] [address] [place] [address] Dr. Suzie Brooks EO # 0.3 103/ul Normal 0.0-0.7 [facility] Comment on above: Performed By: #### U DINA, LIPID, TSH, BNP, CMP, T7 #### [facility] [address] [place] [address] Dr. Suzie Brooks Eosinophils/100 WBC (Bld) 2.3 % Normal 0.9-7.0 [facility] Comment on above: Performed By: #### U DINA, LIPID, TSH, BNP, CMP, T7 #### [facility] [address] [place] [address] Dr. Suzie Brooks Erythrocyte distribution width (RBC) [Ratio] 14.2 % Normal 11.0-15.0 [facility] Comment on above: Performed By: #### U DINA, LIPID, TSH, BNP, CMP, T7 #### [facility] [address] [place] [address] Dr. Suzie Brooks Hematocrit (Bld) [Volume fraction] 41.3 % Critically low 42.0-54.0 [facility] Comment on above: Performed By: #### U DINA, LIPID, TSH, BNP, CMP, T7 #### [facility] [address] [place] [address] Dr. Suzie Brooks Hemoglobin (Bld) [Mass/Vol] 13.4 g/dL Critically low 14.0-18.0 [facility] Comment on above: Performed By: #### U DINA, LIPID, TSH, BNP, CMP, T7 #### [facility] [address] [place] [address] Dr. Suzie Brooks IG # 0.03 10e3/ul Normal 0.00-0.03 [facility] Comment on above: Performed By: #### U DINA, LIPID, TSH, BNP, CMP, T7 #### [facility] [address] [address] [address] Suzie Brooks IG % 0.3 % Normal 0.0-0.5 [facility] Comment on above: Performed By: #### U DINA, LIPID, TSH, BNP, CMP, T7 #### [facility] [address] [place] [address] Dr. Suzie Brooks LYMPH # 2.0 103/ul Normal 1.2-3.8 [facility] Comment on above: Performed By: #### U DINA, LIPID, TSH, BNP, CMP, T7 #### [facility] [address] [place] [address] Dr. Suzie Brooks Lymphocytes/100 WBC (Bld) 18.0 % Critically low 20.5-60.0 [facility] Comment on above: Performed By: #### U DINA, LIPID, TSH, BNP, CMP, T7 #### [facility] [address] [place] [address] Dr. Suzie Brooks MANUAL DIFF REQ NO Normal [facility] Comment on above: Performed By: #### U DINA, LIPID, TSH, BNP, CMP, T7 #### [facility] [address] [place] [address] Dr. Suzie Brooks MCH (RBC) [Entitic mass] 28.8 pg Normal 25.9-34.0 [facility] Comment on above: Performed By: #### U DINA, LIPID, TSH, BNP, CMP, T7 #### [facility] [address] [place] [address] Dr. Suzie Brooks MCHC (RBC) [Mass/Vol] 32.4 g/dL Normal 29.9-35.2 [facility] Comment on above: Performed By: #### U DINA, LIPID, TSH, BNP, CMP, T7 #### [facility] [address] [place] [address] Dr. Suzie Brooks MCV (RBC) [Entitic vol] 88.6 fL Normal 80.0-94.0 [facility] Comment on above: Performed By: #### U DINA, LIPID, TSH, BNP, CMP, T7 #### [facility] [address] [place] [address] Dr. Suzie Brooks MONO # 1.0 103/ul Critically high 0.3-0.8 [facility] Comment on above: Performed By: #### U DINA, LIPID, TSH, BNP, CMP, T7 #### [facility] [address] [place] [address] Dr. Suzie Brooks Monocytes/100 WBC (Bld) 9.2 % Normal 1.7-12.0 [facility] Comment on above: Performed By: #### U DINA, LIPID, TSH, BNP, CMP, T7 #### [facility] [address] [place] [address] Dr. Suzie Brooks NEUT # 7.9 103/ul Critically high 1.4-6.5 [facility] Comment on above: Performed By: #### U DINA, LIPID, TSH, BNP, CMP, T7 #### [facility] [address] [place] [address] Dr. Suzie Brooks Neutrophils/100 WBC (Bld) 69.9 % Normal 43.0-75.0 [facility] Comment on above: Performed By: #### U DINA, LIPID, TSH, BNP, CMP, T7 #### [facility] [address] [place] [address] Dr. Suzie Brooks Platelet mean volume (Bld) [Entitic vol] 9.6 fL Normal 9.5-13.5 [facility] Comment on above: Performed By: #### U DINA, LIPID, TSH, BNP, CMP, T7 #### [facility] [address] [place] [address] Dr. Suzie Brooks PLT 218 103/ul Normal 150-450 [facility] Comment on above: Performed By: #### U DINA, LIPID, TSH, BNP, CMP, T7 #### [facility] [address] [place] [address] Dr. Suzie Brooks RBC 4.66 106/ul Critically low 4.70-6.10 [facility] Comment on above: Performed By: #### U DINA, LIPID, TSH, BNP, CMP, T7 #### [facility] [address] [address] [address] Suzie Brooks WBC 11.3 103/ul Critically high 4.0-11.0 [facility] Comment on above: Performed By: #### U DINA, LIPID, TSH, BNP, CMP, T7 #### [facility] [id number] Suzie Brooks CULTURE URINEon 02-18-2022 CULTURE URINE Culture Observations : NO GROWTH. Normal [facility] Comment on above: Performed By: #### M AG24 #### [facility] [address] [address] [address] Suzie Brooks Covid-19 PCR (CVDTBH)on 02-08 SARS-CoV-2 (COVID-19) RNA SUKHJINDER+probe Ql (Unsp spec) Not detected Normal NOT DETECTED [facility] Comment on above: Result Comment: [...] for this test is supported by the Personnel Counselor of Health and Human Service's declaration that [...] used). Performed By: #### C VDTBH #### [facility] [address] [place], [place] [id number] Dr. Suzie Brooks PROF 14(COMP METB)on 022 Albumin [Mass/Vol] 3.0 g/dL Critically low 3.4-5.0 [facility] Comment on above: Performed By: #### O X24HR #### [facility] [address] [address] [address] Suzie Brooks Albumin/Globulin [Mass ratio] 0.9 {ratio} Normal [facility] Comment on above: Performed By: #### O X24HR #### [facility] [address] [place] [address] Dr. Suzie Brooks ALP [Catalytic activity/Vol] 49 U/L Normal 46-116 [facility] Comment on above: Performed By: #### O X24HR #### [facility] [address] [place] [address] Dr. Suzie Brooks ALT [Catalytic activity/Vol] 35 U/L Normal 16-63 [facility] Comment on above: Performed By: #### O X24HR #### [facility] [address] [place] [address] Dr. Suzie Brooks Anion gap [Moles/Vol] 11.8 mmol/L Normal [facility] Comment on above: Performed By: #### O X24HR #### [facility] [address] [place] [address] Dr. Suzie Brooks AST [Catalytic activity/Vol] 27 U/L Normal 15-37 [facility] Comment on above: Performed By: #### O X24HR #### [facility] [address] [place] [address] Dr. Suzie Brooks Bilirubin [Mass/Vol] 0.4 mg/dL Normal 0.2-1.0 [facility] Comment on above: Performed By: #### O X24HR #### [facility] [address] [place] [address] Dr. Suzie Brooks Calcium [Mass/Vol] 7.6 mg/dL Critically low 8.5-10.1 [facility] Comment on above: Performed By: #### O X24HR #### [facility] [address] [place] [address] Dr. Suzie Brooks Chloride [Moles/Vol] 106 mmol/L Normal 98-107 [facility] Comment on above: Performed By: #### O X24HR #### [facility] [address] [place] [address] Dr. Suzie Brooks CO2 [Moles/Vol] 26.2 mmol/L Normal 21.0-32.0 [facility] Comment on above: Performed By: #### O X24HR #### [facility] [address] [place] [address] Dr. Suzie Brooks Creatinine [Mass/Vol] 1.08 mg/dL Normal 0.70-1.30 [facility] Comment on above: Performed By: #### O X24HR #### [facility] [address] [place] [address] Dr. Suzie Brooks EGFR-AF CITIZEN [place] >60 Normal >=60 [facility] Comment on above: Performed By: #### O X24HR #### [facility] [address] [place] [address] Dr. Suzie Brooks EGFR-NON AF CITIZEN [place] >60 Normal >=60 [facility] Comment on above: Performed By: #### O X24HR #### [facility] [address] [place] [address] Dr. Szuie Brooks Globulin (S) [Mass/Vol] 3.2 g/dL Normal [facility] Comment on above: Performed By: #### O X24HR #### [facility] [address] [place] [address] Dr. Suzie Brooks Glucose [Mass/Vol] 107 mg/dL Critically high 74-106 [facility] Comment on above: Performed By: #### O X24HR #### [facility] [address] [place] [address] Dr. Suzie Brooks Potassium [Moles/Vol] 4.0 mmol/L Normal 3.5-5.1 [facility] Comment on above: Performed By: #### O X24HR #### [facility] [address] [place] [address] Dr. Suzie Brooks Protein [Mass/Vol] 6.2 g/dL Critically low 6.4-8.2 [facility] Comment on above: Performed By: #### O X24HR #### [facility] [address] [place] [address] Dr. Suzie Brooks Sodium [Moles/Vol] 140 mmol/L Normal 136-145 [facility] Comment on above: Performed By: #### O X24HR #### [facility] [address] [place] [address] Dr. Suzie Brooks Urea nitrogen [Mass/Vol] 14.0 mg/dL Normal 7.0-18.0 [facility] Comment on above: Performed By: #### O X24HR #### [facility] [address] [place] [address] Dr. Suzie Brooks Urea nitrogen/Creatinine [Mass ratio] 13.0 mg/mg Normal [facility] Comment on above: Performed By: #### O X24HR #### [facility] [address] [place] [address] Dr. Suzie Brooks CBC AUTO DIFFon 02-17-2022 BASO # 0.1 103/ul Normal 0.0-0.1 [facility] Comment on above: Performed By: #### M AG24 #### [facility] [address] [place] [address] Dr. Suzie Brooks Basophils/100 WBC (Bld) 0.4 % Normal 0.2-2.0 [facility] Comment on above: Performed By: #### M AG24 #### [facility] [address] [place] [address] Dr. Suzie Brooks EO # 0.3 103/ul Normal 0.0-0.7 [facility] Comment on above: Performed By: #### M AG24 #### [facility] [address] [place] [address] Dr. Suzie Brooks Eosinophils/100 WBC (Bld) 2.3 % Normal 0.9-7.0 [facility] Comment on above: Performed By: #### M AG24 #### [facility] [address] [place] [address] Dr. Suzie Brooks Erythrocyte distribution width (RBC) [Ratio] 13.8 % Normal 11.0-15.0 [facility] Comment on above: Performed By: #### M AG24 #### [facility] [address] [place] [address] Dr. Suzie Brooks Hematocrit (Bld) [Volume fraction] 45.2 % Normal 42.0-54.0 [facility] Comment on above: Performed By: #### M AG24 #### [facility] [address] [place] [address] Dr. Suzie Brooks Hemoglobin (Bld) [Mass/Vol] 14.9 g/dL Normal 14.0-18.0 [facility] Comment on above: Performed By: #### M AG24 #### [facility] [address] [address] [address] Suzie Brooks IG # 0.05 10e3/ul Critically high 0.00-0.[address] [facility] Comment on above: Performed By: #### M AG24 #### [facility] [address] [place] [address] Dr. Suzie Brooks IG % 0.4 % Normal 0.0-0.5 [facility] Comment on above: Performed By: #### M AG24 #### [facility] [address] [place] [address] Dr. Suzie Brooks LYMPH # 2.5 103/ul Normal 1.2-3.8 [facility] Comment on above: Performed By: #### M AG24 #### [facility] [address] [place] [address] Dr. Suzie Brooks Lymphocytes/100 WBC (Bld) 17.3 % Critically low 20.5-60.0 [facility] Comment on above: Performed By: #### M AG24 #### [facility] [address] [place] [address] Dr. Suzie Brooks MANUAL DIFF REQ NO Normal [facility] Comment on above: Performed By: #### M AG24 #### [facility] [address] [place] [address] Dr. Suzie Brooks MCH (RBC) [Entitic mass] 28.7 pg Normal 25.9-34.0 [facility] Comment on above: Performed By: #### M AG24 #### [facility] [address] [place] [address] Dr. Suzie Brooks MCHC (RBC) [Mass/Vol] 33.0 g/dL Normal 29.9-35.2 [facility] Comment on above: Performed By: #### M AG24 #### [facility] [address] [place] [address] Dr. Suzie Brooks MCV (RBC) [Entitic vol] 87.1 fL Normal 80.0-94.0 [facility] Comment on above: Performed By: #### M AG24 #### [facility] [address] [place] [address] Dr. Suzie Brooks MONO # 1.0 103/ul Critically high 0.3-0.8 [facility] Comment on above: Performed By: #### M AG24 #### [facility] [address] [place] [address] Dr. Suzie Brooks Monocytes/100 WBC (Bld) 6.8 % Normal 1.7-12.0 [facility] Comment on above: Performed By: #### M AG24 #### [facility] [address] [place] [address] Dr. Suize Brooks NEUT # 10.3 103/ul Critically high 1.4-6.5 [facility] Comment on above: Performed By: #### M AG24 #### [facility] [address] [place] [address] Dr. Suzie Brooks Neutrophils/100 WBC (Bld) 72.8 % Normal 43.0-75.0 [facility] Comment on above: Performed By: #### M AG24 #### [facility] [address] [place] [address] Dr. Suzie Brooks Platelet mean volume (Bld) [Entitic vol] 9.7 fL Normal 9.5-13.5 [facility] Comment on above: Performed By: #### M AG24 #### [facility] [address] [place] [address] Dr. Suzie Brooks PLT 253 103/ul Normal 150-450 [facility] Comment on above: Performed By: #### M AG24 #### [facility] [address] [place] [address] Dr. Suzie Brooks RBC 5.19 106/ul Normal 4.70-6.10 [facility] Comment on above: Performed By: #### M AG24 #### [facility] [address] [place] [address] Dr. Suzie Brooks WBC 14.2 103/ul Critically high 4.0-11.0 [facility] Comment on above: Performed By: #### M AG24 #### [facility] [address] [place] [address] Dr. Suzie Brooks CULTURE BLOODon 02-17-2022 Microscopic examination of blood, culture Culture Observations: NO GROWTH AT 5 DAYS. Normal [facility] Comment on above: Performed By: #### M AG24 #### [facility] [address] [place] [address] Dr. Suzie Brooks Microscopic examination of blood, culture Culture Observations: NO GROWTH AT 5 DAYS. Normal [facility] Comment on above: Performed By: #### M AG24 #### [facility] [address] [place] [address] Dr. Suzie Brooks ER URINE PROFILEon Bilirubin Ql (U) Negative Normal NEGATIVE [facility] Comment on above: Performed By: #### E RUR #### [facility] [address] [place] [address] Dr. Suzie Brooks Clarity (U) CLEAR Normal CLEAR [facility] Comment on above: Performed By: #### E RUR #### [facility] [address] [place] [address] Dr. Suzie Brooks Color (U) DK. YELLOW Normal YELLOW [facility] Comment on above: Performed By: #### E RUR #### [facility] [address] [place] [address] Dr. Suzie Brooks ERUDIOGOD A micrscopic examina tion will be performed if indicated. Normal [facility] Comment on above: Performed By: #### E RUR #### [facility] [address] [place] [address] Dr. Suzie Brooks Glucose Ql (U) Negative Normal NEGATIVE [facility] Comment on above: Performed By: #### E RUR #### [facility] [address] [place] [address] Dr. Suzie Brooks Hemoglobin Ql (U) Negative Normal NEGATIVE [facility] Comment on above: Performed By: #### E RUR #### [facility] [address] [place] [address] Dr. Suzie Brooks Ketones Ql (U) Negative Normal NEGATIVE [facility] Comment on above: Performed By: #### E RUR #### [facility] [address] [place] [address] Dr. Suzie Brooks LEUKOCYTES Negative Normal NEGATIVE [facility] Comment on above: Performed By: #### E RUR #### [facility] [address] [place] [address] Dr. Suzie Brooks Nitrite Ql (U) Negative Normal NEGATIVE [facility] Comment on above: Performed By: #### E RUR #### [facility] [address] [place] [address] Dr. Suzie Brooks pH (U) 5.0 [pH] Normal 5-9 [facility] Comment on above: Performed By: #### E RUR #### [facility] [address] [place] [address] Dr. Suzie Brooks SPEC GRAVITY >=1.030 Abnormal 1.005-<=1.02 5 [facility] Comment on above: Performed By: #### E RUR #### [facility] [address] [place] [address] Dr. Suzie Brooks UA PROTEIN Negative Normal NEGATIVE/ TRACE [facility] Comment on above: Performed By: #### E RUR #### [facility] [address] [place] [address] Dr. Suzie Brooks UR MICRO IND NOT INDICATED Normal [facility] Comment on above: Performed By: #### E RUR #### [facility] [address] [place] [address] Dr. Suzie Brooks Urobilinogen Qn (U) 0.2 {Behzad'U}/dL Normal 0.2 - 1. 0 [facility] Comment on above: Performed By: #### E RUR #### [facility] [address] [address] [address] Suzie Brooks LACTATE/LACTIC ACIDon 2021 Lactate [Moles/Vol] 1.4 mmol/L Normal 0.4-1.9 [facility] Comment on above: Performed By: #### U DINA, LIPID, TSH, BNP, CMP, T7 #### [facility] [address] [address] [address] Suzie Brooks PROF CHEM 8 (BAS METB)on Anion gap [Moles/Vol] 12.2 mmol/L Normal [facility] Comment on above: Performed By: #### U DINA, LIPID, TSH, BNP, CMP, T7 #### [facility] [address] [address] [address] Suzie Brooks Calcium [Mass/Vol] 8.1 mg/dL Critically low 8.5-10.1 [facility] Comment on above: Performed By: #### U DINA, LIPID, TSH, BNP, CMP, T7 #### [facility] [address] [address] [address] Suzie Brooks Chloride [Moles/Vol] 103 mmol/L Normal 98-107 [facility] Comment on above: Performed By: #### U DINA, LIPID, TSH, BNP, CMP, T7 #### [facility] [address] [address] [address] Suzie Brooks CO2 [Moles/Vol] 26.1 mmol/L Normal 21.0-32.0 [facility] Comment on above: Performed By: #### U DINA, LIPID, TSH, BNP, CMP, T7 #### [facility] [address] [address] [address] Suzie Brooks Creatinine [Mass/Vol] 1.06 mg/dL Normal 0.70-1.30 [facility] Comment on above: Performed By: #### U DINA, LIPID, TSH, BNP, CMP, T7 #### [facility] [address] [address] [address] Suzie Brooks EGFR-AF CITIZ[place] >60 Normal >=60 [facility] Comment on above: Performed By: #### U DINA, LIPID, TSH, BNP, CMP, T7 #### [facility] [address] [address] [address] Suzie Brooks EGFR-NON AF CITIZ[place] OF [place] >60 Normal >=60 [facility] Comment on above: Performed By: #### U DINA, LIPID, TSH, BNP, CMP, T7 #### [facility] [address] [address] [address] Suzie Brooks Glucose [Mass/Vol] 138 mg/dL Critically high 74-106 [facility] Comment on above: Performed By: #### U DINA, LIPID, TSH, BNP, CMP, T7 #### [facility] [address] [address] [address] Suzie Brooks Potassium [Moles/Vol] 4.3 mmol/L Normal 3.5-5.1 [facility] Comment on above: Performed By: #### U DINA, LIPID, TSH, BNP, CMP, T7 #### [facility] [address] [address] [address] Suzie Brooks Sodium [Moles/Vol] 137 mmol/L Normal 136-145 [facility] Comment on above: Performed By: #### U DINA, LIPID, TSH, BNP, CMP, T7 #### [facility] [address] [address] [address] Suzie Brooks Urea nitrogen [Mass/Vol] 14.0 mg/dL Normal 7.0-18.0 [facility] Comment on above: Performed By: #### U DINA, LIPID, TSH, BNP, CMP, T7 #### [facility] [address] [address] [address] Suzie Brooks Urea nitrogen/Creatinine [Mass ratio] 13.2 mg/mg Normal [facility] Comment on above: Performed By: #### U DINA, LIPID, TSH, BNP, CMP, T7 #### [facility] Laboratory [address] [address] [address] Suzie Brooks TROPONIN, HIGH SENSITIVITYon 02-17-2022 HSTROP 8.4 pg/mL Normal 4.0-76.1 [facility] Comment on above: Result Comment: CUT- OFF POINTS HAVE BEEN ESTABLISHED BASED ON THE FOURTH UNIVERSAL DEFINITIONS OF MYOCARDIAL INFARCTION. THE UPPER REFERENCE LIMIT (URL) OF TROPONIN, DEFINED THE 99TH PERCENTILE OF cTnI DISTRIBUTION IN A REFERENCE POPULATION, HAS BEEN CONFIRMED THE DECISION THRESHOLD FOR NM DIAGNOSIS. Performed By: #### U DINA, LIPID, TSH, BNP, CMP, T7 #### [facility] [address] [place] [address] Dr. Suzie Brooks CBC AUTO DIFFon 02-16-2022 BASO # 0.1 103/ul Normal 0.0-0.1 [facility] Comment on above: Performed By: #### U DINA, LIPID, TSH, BNP, CMP, T7 #### [facility] [address] [place] [address] Dr. Suzie Brooks Basophils/100 WBC (Bld) 0.4 % Normal 0.2-2.0 [facility] Comment on above: Performed By: #### U DINA, LIPID, TSH, BNP, CMP, T7 #### [facility] [address] [place] [address] Dr. Suzie Brooks EO # 0.3 103/ul Normal 0.0-0.7 [facility] Comment on above: Performed By: #### U DINA, LIPID, TSH, BNP, CMP, T7 #### [facility] [address] [place] [address] Dr. Suzie Brooks Eosinophils/100 WBC (Bld) 2.5 % Normal 0.9-7.0 [facility] Comment on above: Performed By: #### U DINA, LIPID, TSH, BNP, CMP, T7 #### [facility] [address] [place] [address] Dr. Suzie Brooks Erythrocyte distribution width (RBC) [Ratio] 13.9 % Normal 11.0-15.0 [facility] Comment on above: Performed By: #### U IDNA, LIPID, TSH, BNP, CMP, T7 #### [facility] [address] [place] [address] Dr. Suzie Brooks Hematocrit (Bld) [Volume fraction] 46.6 % Normal 42.0-54.0 [facility] Comment on above: Performed By: #### U DINA, LIPID, TSH, BNP, CMP, T7 #### [facility] [address] [address] [address] Suzie Brooks Hemoglobin (Bld) [Mass/Vol] 15.7 g/dL Normal 14.0-18.0 [facility] Comment on above: Performed By: #### U DINA, LIPID, TSH, BNP, CMP, T7 #### [facility] [address] [address] [address] Suzie Brooks IG # 0.05 10e3/ul Critically high 0.00-0.[address] [facility] Comment on above: Performed By: #### U DINA, LIPID, TSH, BNP, CMP, T7 #### [facility] [address] [place] [address] Dr. Suzie Brooks IG % 0.4 % Normal 0.0-0.5 [facility] Comment on above: Performed By: #### U DINA, LIPID, TSH, BNP, CMP, T7 #### [facility] [address] [place] [address] Dr. Suzie Brooks LYMPH # 3.7 103/ul Normal 1.2-3.8 [facility] Comment on above: Performed By: #### U DINA, LIPID, TSH, BNP, CMP, T7 #### [facility] [address] [place] [address] Dr. Suzie Brooks Lymphocytes/100 WBC (Bld) 26.6 % Normal 20.5-60.0 [facility] Comment on above: Performed By: #### U DINA, LIPID, TSH, BNP, CMP, T7 #### [facility] [address] [address] [address] Suzie Brooks MANUAL DIFF REQ NO Normal [facility] Comment on above: Performed By: #### U DINA, LIPID, TSH, BNP, CMP, T7 #### [facility] [address] [place] [address] Dr. Suzie Brooks MCH (RBC) [Entitic mass] 29.2 pg Normal 25.9-34.0 [facility] Comment on above: Performed By: #### U DINA, LIPID, TSH, BNP, CMP, T7 #### [facility] [address] [address] [address] [facility] [Mass/Vol] 33.7 g/dL Normal 29.9-35.2 [facility] Comment on above: Performed By: #### U DINA, LIPID, TSH, BNP, CMP, T7 #### [facility] [address] [address] [address] Suzie Brooks MCV (RBC) [Entitic vol] 86.6 fL Normal 80.0-94.0 [facility] Comment on above: Performed By: #### U DINA, LIPID, TSH, BNP, CMP, T7 #### [facility] [address] [place] [address] Dr. Suzie Brooks MONO # 1.0 103/ul Critically high 0.3-0.8 [facility] Comment on above: Performed By: #### U DINA, LIPID, TSH, BNP, CMP, T7 #### [facility] [address] [place] [address] Dr. Suzie Brooks Monocytes/100 WBC (Bld) 7.2 % Normal 1.7-12.0 [facility] Comment on above: Performed By: #### U DINA, LIPID, TSH, BNP, CMP, T7 #### [facility] [address] [place] [address] Dr. Suzie Brooks NEUT # 8.7 103/ul Critically high 1.4-6.5 [facility] Comment on above: Performed By: #### U DINA, LIPID, TSH, BNP, CMP, T7 #### [facility] [address] [place] [address] Dr. Suzie Brooks Neutrophils/100 WBC (Bld) 62.9 % Normal 43.0-75.0 [facility] Comment on above: Performed By: #### U DINA, LIPID, TSH, BNP, CMP, T7 #### [facility] [address] [place] [address] Dr. Suzie Brooks Platelet mean volume (Bld) [Entitic vol] 9.4 fL Critically low 9.5-13.5 [facility] Comment on above: Performed By: #### U DINA, LIPID, TSH, BNP, CMP, T7 #### [facility] [address] [place], [place] [address] Dr. Suzie Brooks PLT 277 103/ul Normal 150-450 [facility] Comment on above: Performed By: #### U DINA, LIPID, TSH, BNP, CMP, T7 #### [facility] [address] [place], [place] [address] Dr. Suzie Brooks RBC 5.38 106/ul Normal 4.70-6.10 [facility] Comment on above: Performed By: #### U DINA, LIPID, TSH, BNP, CMP, T7 #### [facility] [address] [place], [place] [address] Dr. Suize Brooks WBC 13.8 103/ul Critically high 4.0-11.0 [facility] Comment on above: Performed By: #### U DINA, LIPID, TSH, BNP, CMP, T7 #### [facility] [address] [place], [place] [address] ABD/PELVIS WO CONon [...] Reilly CAST Date: 2022-02-16 20:51 Normal [facility] ER URINE PROFILEon 2 Bilirubin Ql (U) Negative Normal NEGATIVE [facility] Comment on above: Performed By: #### U DINA, LIPID, TSH, BNP, CMP, T7 #### [facility] [address] [address] [address] Suzie Brooks Clarity (U) CLEAR Normal CLEAR [facility] Comment on above: Performed By: #### U DINA, LIPID, TSH, BNP, CMP, T7 #### [facility] [address] [address] [address] Suzie Brooks Color (U) YELLOW Normal YELLOW [facility] Comment on above: Performed By: #### U DINA, LIPID, TSH, BNP, CMP, T7 #### [facility] [address] [address] [address] Suzie Brooks ERUAHD A micrscopic examina tion will be performed if indicated. Normal [facility] Comment on above: Performed By: #### U DINA, LIPID, TSH, BNP, CMP, T7 #### [facility] [address] [address] [address] Suzie Brooks Glucose Ql (U) Negative Normal NEGATIVE [facility] Comment on above: Performed By: #### U DINA, LIPID, TSH, BNP, CMP, T7 #### [facility] [address] [address] [address] Suzie Brooks Hemoglobin Ql (U) MODERATE Abnormal NEGATIVE [facility] Comment on above: Performed By: #### U DINA, LIPID, TSH, BNP, CMP, T7 #### [facility] [address] [address] [address] Suzie Brooks Ketones Ql (U) Negative Normal NEGATIVE [facility] Comment on above: Performed By: #### U DINA, LIPID, TSH, BNP, CMP, T7 #### [facility] [address] [place] [address] Dr. Suzie Brooks LEUKOCYTES Negative Normal NEGATIVE [facility] Comment on above: Performed By: #### U DINA, LIPID, TSH, BNP, CMP, T7 #### [facility] [address] [address] [address] Suzie Brooks Nitrite Ql (U) Negative Normal NEGATIVE [facility] Comment on above: Performed By: #### U DINA, LIPID, TSH, BNP, CMP, T7 #### [facility] [address] [address] [address] Suzie Brooks pH (U) 5.5 [pH] Normal 5-9 [facility] Comment on above: Performed By: #### U DINA, LIPID, TSH, BNP, CMP, T7 #### [facility] [address] [address] [address] Suzie Brooks SPEC GRAVITY >=1.030 Abnormal 1.005-<=1.02 5 [facility] Comment on above: Performed By: #### U DINA, LIPID, TSH, BNP, CMP, T7 #### [facility] [address] [place] [address] Dr. Suzie Brooks UA PROTEIN Negative Normal NEGATIVE/ TRACE [facility] Comment on above: Performed By: #### U DINA, LIPID, TSH, BNP, CMP, T7 #### [facility] [address] [place] [address] Dr. Suzie Brooks UR MICRO IND INDICATED Normal [facility] Comment on above: Performed By: #### U DINA, LIPID, TSH, BNP, CMP, T7 #### [facility] [address] [place] [address] Dr. Suzie Brooks Urobilinogen Qn (U) 0.2 {Behzad'U}/dL Normal 0.2 - 1. 0 [facility] Comment on above: Performed By: #### U DINA, LIPID, TSH, BNP, CMP, T7 #### [facility] [address] [place] [address] Dr. Suzie Brooks PROF CHEM 8 (BAS METB)on Anion gap [Moles/Vol] 12.2 mmol/L Normal [facility] Comment on above: Performed By: #### U DINA, LIPID, TSH, BNP, CMP, T7 #### [facility] [address] [place] [address] Dr. Suzie Brooks Calcium [Mass/Vol] 8.5 mg/dL Normal 8.5-10.1 [facility] Comment on above: Performed By: #### U DINA, LIPID, TSH, BNP, CMP, T7 #### [facility] [address] [place] [address] Dr. Suzie Brooks Chloride [Moles/Vol] 104 mmol/L Normal 98-107 [facility] Comment on above: Performed By: #### U DINA, LIPID, TSH, BNP, CMP, T7 #### [facility] [address] [address] [address] Suzie Brooks CO2 [Moles/Vol] 24.1 mmol/L Normal 21.0-32.0 [facility] Comment on above: Performed By: #### U DINA, LIPID, TSH, BNP, CMP, T7 #### [facility] [address] [place] [address] Dr. Suzie Brooks Creatinine [Mass/Vol] 1.14 mg/dL Normal 0.70-1.30 [facility] Comment on above: Performed By: #### U DINA, LIPID, TSH, BNP, CMP, T7 #### [facility] [address] [address] [address] Suzie Brooks EGFR-AF CITIZEN [place] >60 Normal >=60 [facility] Comment on above: Performed By: #### U DINA, LIPID, TSH, BNP, CMP, T7 #### [facility] [address] [address] [address] Suzie Brooks EGFR-NON AF CITIZEN [place] >60 Normal >=60 [facility] Comment on above: Performed By: #### U DINA, LIPID, TSH, BNP, CMP, T7 #### [facility] [address] [address] [address] Suzie Brooks Glucose [Mass/Vol] 114 mg/dL Critically high 74-106 [facility] Comment on above: Performed By: #### U DINA, LIPID, TSH, BNP, CMP, T7 #### [facility] [address] [address] [address] Suzie Brooks Potassium [Moles/Vol] 4.3 mmol/L Normal 3.5-5.1 [facility] Comment on above: Performed By: #### U DINA, LIPID, TSH, BNP, CMP, T7 #### [facility] [address] [address] [address] Suzie Brooks Sodium [Moles/Vol] 136 mmol/L Normal 136-145 [facility] Comment on above: Performed By: #### U DINA, LIPID, TSH, BNP, CMP, T7 #### [facility] [address] [address] [address] Suzie Brooks Urea nitrogen [Mass/Vol] 14.0 mg/dL Normal 7.0-18.0 [facility] Comment on above: Performed By: #### U DINA, LIPID, TSH, BNP, CMP, T7 #### [facility] [address] [address] [address] Suzie Brooks Urea nitrogen/Creatinine [Mass ratio] 12.3 mg/mg Normal [facility] Comment on above: Performed By: #### U DINA, LIPID, TSH, BNP, CMP, T7 #### [facility] [address] [address] [address] Suzie Brooks URINE MICROSCOPIC ONLYon BACTERIA NONE SEEN Normal NONE SEEN [facility] Comment on above: Performed By: #### U DINA, LIPID, TSH, BNP, CMP, T7 #### [facility] [address] [address] [address] Suzie Brooks Bacteria identified Cx Nom (U) NOT INDICATED Normal [facility] Comment on above: Performed By: #### U DINA, LIPID, TSH, BNP, CMP, T7 #### [facility] [address] [place] [address] Dr. Suzie Brooks CAST NONE SEEN Normal NONE SEEN [facility] Comment on above: Performed By: #### U DINA, LIPID, TSH, BNP, CMP, T7 #### [facility] [address] [place] [address] Dr. Suzie Brooks Crystals LM Nom (Urine sed) NONE SEEN Normal NONE SEEN [facility] Comment on above: Performed By: #### U DINA, LIPID, TSH, BNP, CMP, T7 #### [facility] [address] [place] [address] Dr. Suzie Brooks Epithelial cells LM Ql (Urine sed) RARE Normal NONE SEEN /RARE [facility] Comment on above: Performed By: #### U DINA, LIPID, TSH, BNP, CMP, T7 #### [facility] [address] [place] [address] Dr. Suzie Brooks MUCOUS NONE SEEN Normal NONE SEEN [facility] Comment on above: Performed By: #### U DINA, LIPID, TSH, BNP, CMP, T7 #### [facility] [address] [place] [address] Dr. Suzie Brooks RBC 5-10 Abnormal 0-2 [facility] Comment on above: Performed By: #### U DINA, LIPID, TSH, BNP, CMP, T7 #### [facility] [address] [place] [address] Dr. Suzie Brooks WBC NONE SEEN Normal NONE SEEN [facility] Comment on above: Performed By: #### U DINA, LIPID, TSH, BNP, CMP, T7 #### [facility] [address] [address] [address] Suzie Brooks CITRATE URINE 24HRon 022 Citric Acid, U, 24hr 1312 mg/24 hr Critically high 320-124 0 [facility] Comment on above: Result Comment: This test was developed and its performance characteristics determined by [employer]. It has not been cleared or approved by the Food and Drug Administration. Performed By: #### U DINA, LIPID, TSH, BNP, CMP, T7 #### [facility] [address] [address] [address] Suzie Brooks Citric Acid, Urine 610 mg/L Normal Undefined [facility] Comment on above: Performed By: #### U DINA, LIPID, TSH, BNP, CMP, T7 #### [facility] [address] [place] [address] Dr. Suzie Brooks OXALATE 24HR URINEon 022 Oxalates, Urine 11 mg/L Normal Undefined [facility] Comment on above: Performed By: #### O X24HR #### [facility] [address] [place] [address] Dr. Suzie Brooks Oxalates, Urine 24hr 24 mg/24 hr Normal 7-44 [facility] Comment on above: Performed By: #### O X24HR #### [facility] [address] [place] [address] Dr. Suzie Brooks MAGNESIUM 24HR URINEon 02-02 Magnesium 24hr Urine 77.4 mg/24 hr Normal 12.0-293.0 [facility] Comment on above: Performed By: #### M AG24 #### [facility] [address] [place] [address] Dr. Suzie Brooks Magnesium UR 3.6 mg/dL Normal Not Estab. [facility] Comment on above: Performed By: #### M AG24 #### [facility] [address] [place] [address] Dr. Suzie Brooks PHOSPHORUS 24HR URINEon 01-10 Phosphorus, Urine 44.1 mg/dL Normal Not Estab. [facility] Comment on above: Performed By: #### U DINA, LIPID, TSH, BNP, CMP, T7 #### [facility] [address] [address] [address] Suzie Brooks Phosphorus, Urine 24hr 948 mg/24 hr Normal 390-1425 [facility] Comment on above: Performed By: #### U DINA, LIPID, TSH, BNP, CMP, T7 #### [facility] [address] [address] [address] Suzie Brooks URIC ACID 24 HR URINEon 01-10 Uric Acid, Urine 35.4 mg/dL Normal Not Estab. [facility] Comment on above: Performed By: #### U DINA, LIPID, TSH, BNP, CMP, T7 #### [facility] [address] [address] [address] Suzie Brooks Uric Acid, Urine 24hr 761.1 mg/24 hr Normal 182.4-936.8 [facility] Comment on above: Performed By: #### U DINA, LIPID, TSH, BNP, CMP, T7 #### [facility] [address] [address] [address] Suzie Brooks CALCIUM 24 HR URINEon 2021 CALC, 24 HR UR 187.0 mg/24 hr Normal 100.0-300.0 [facility] Comment on above: Performed By: #### U DINA, LIPID, TSH, BNP, CMP, T7 #### [facility] [address] [address] [address] Suzie Brooks UR CALCIUM 8.7 mg/dL Normal 5.1-21.0 [facility] Comment on above: Performed By: #### U DINA, LIPID, TSH, BNP, CMP, T7 #### [facility] [address] [address] [address] Suzie Brooks UR TOT VOL 2150 ml/24 HR Normal [facility] Comment on above: Performed By: #### U DINA, LIPID, TSH, BNP, CMP, T7 #### [facility] [address] [address] [address] Suzie Brooks CREA 24 HR URINEon 2 CREA, 24 HR UR 1983.59 mg/24 hr Normal 1,000.00- 2,0 00.00 [facility] Comment on above: Performed By: #### U DINA, LIPID, TSH, BNP, CMP, T7 #### [facility] [address] [place] [address] Dr. Suzie Brooks URINE CREAT 92.26 mg/dL Normal 20.00-300.00 [facility] Comment on above: Performed By: #### U DINA, LIPID, TSH, BNP, CMP, T7 #### [facility] [address] [place] [address] Dr. Suzie Brooks SODIUM 24 HR URINEon 022 NA, 24 HR UR 172 mmol/24 hr Normal 40-220 [facility] Comment on above: Performed By: #### U DINA, LIPID, TSH, BNP, CMP, T7 #### [facility] [address] [place] [address] Dr. Suzie Brooks Sodium (U) [Moles/Vol] 80 mmol/L Normal 30-90 [facility] Comment on above: Performed By: #### U DINA, LIPID, TSH, BNP, CMP, T7 #### [facility] [address] [place] [address] Dr. Suzie Brooks PTH INTACTon 01-31-2022 PTH, Intact 24 pg/mL Normal 15-65 [facility] Comment on above: Performed By: #### U DINA, LIPID, TSH, BNP, CMP, T7 #### [facility] [address] [place] [address] Dr. Suzie Brooks BUNon 01-30-2022 Urea nitrogen [Mass/Vol] 12.0 mg/dL Normal 7.0-18.0 [facility] Comment on above: Performed By: #### U DINA, LIPID, TSH, BNP, CMP, T7 #### [facility] [address] [place] [address] Dr. Suzie Brokos CALCIUMon 01-30-2022 Calcium [Mass/Vol] 8.6 mg/dL Normal 8.5-10.1 [facility] Comment on above: Performed By: #### U DINA, LIPID, TSH, BNP, CMP, T7 #### [facility] [address] [address] [address] Suzie Brooks CHLORIDEon 01-30-2022 Chloride [Moles/Vol] 104 mmol/L Normal 98-107 [facility] Comment on above: Performed By: #### U DINA, LIPID, TSH, BNP, CMP, T7 #### [facility] [address] [address] [address] Suzie Brooks CO2on 01-30-2022 CO2 [Moles/Vol] 29.3 mmol/L Normal 21.0-32.0 [facility] Comment on above: Performed By: #### U DINA, LIPID, TSH, BNP, CMP, T7 #### [facility] [address] [place] [address] Dr. Suzie Brooks CREATININEon 01-30-2022 Creatinine [Mass/Vol] 0.92 mg/dL Normal 0.70-1.30 [facility] Comment on above: Performed By: #### U DINA, LIPID, TSH, BNP, CMP, T7 #### [facility] [address] [address] [address] Suzie Brooks EGFR-AF [place]IZ[place] >60 Normal >=60 [facility] Comment on above: Performed By: #### U DINA, LIPID, TSH, BNP, CMP, T7 #### [facility] [address] [address] [address] Suzie Brooks EGFR-NON AF CITIZ[place] >60 Normal >=60 [facility] Comment on above: Performed By: #### U DINA, LIPID, TSH, BNP, CMP, T7 #### [facility] [address] [address] [address] Suzie Brooks NAon 01-30-2022 Sodium [Moles/Vol] 140 mmol/L Normal 136-145 [facility] Comment on above: Performed By: #### U DINA, LIPID, TSH, BNP, CMP, T7 #### [facility] [address] [place] [address] Dr. Suzie Brooks POTASSIUMon 01-30-2022 Potassium [Moles/Vol] 4.0 mmol/L Normal 3.5-5.1 [facility] Comment on above: Performed By: #### U DINA, LIPID, TSH, BNP, CMP, T7 #### [facility] [address] [place], [place] [address] Dr. Suzie Brooks URIC ACID SERUMon 01-30-2022 Urate [Mass/Vol] 5.2 mg/dL Normal 3.5-7.2 [facility] Comment on above: Performed By: #### U DINA, LIPID, TSH, BNP, CMP, T7 #### [facility] [address] [place], [place] [address] Dr. Suzie Brooks US KIDNEYSon 12-18-2021 US KIDNEYS EXAMINATION: US CHRISTIANA RYAN HISTORY: Kidney stone ; right flank pain [...] BEHZAD CARRASQUILLO Date: 2021-12-18 09:51 Normal [facility] XR KUB 1 VIEWon 11-21-2021 XR KUB [...] by: BEHZAD CARRASQUILLO Date: 2021-11-21 09:45 Normal [facility] XR KUBon 11-15-2021 XR KUB [facility] [facility] [place] [address] [place] [address] XRay Report Signed Patient: Rizwan Aparicio MR#: [id number] 4 : 1950 Acct:[id number] Age/Sex: 71 / M ADM Date: 11/15/21 Loc: [place] Room: Type: [facility] Attending Dr: Micki Zeng MD Ordering [...] Hancock Jr., M.D.11/15/2021 10:43 AM Dictation Location: [place] [address] Transcribed By: [facility] 11/15/21 1043 Dictated By: Yared Hancock Jr, MD 11/15/21 1039 Signed By: 11/15/21 1043 Normal [facility] SARS-CoV-2 (COVID-19) RNA SUKHJINDER+probe Ql (Unsp spec) Negative Normal Negative [facility] Comment on above: Order Comment: Healt hcare Worker?: N Result Comment: Testing for SARS-CoV-2 by RT-PCR This test was developed and its performance characteristics determined by [employer]) and validated at the [facility]. This test has not been FDA [...] is terminated or revoked sooner. PERFORMED BY: [place] [address] PATHOLOGIST TOOL LIAISON JIA MINAYA M.D. Performed By: #### C OVID 19 [facility] #### [address] COVID-19 Positive/NegativeOr dered By: Micki Zeng on 11-13-2021 SARS-CoV-2 (COVID-19) N gene SUKHJINDER+probe Ql (Resp) Negative Negative [facility] Comment on above: Testing for SARS-CoV -2 by RT-PCRThis test was developed and its performance characteristics determined by [employer]) and validated at the [facility]. This test has not been FDA [...] sooner. CALCULI, URINARYon 2 2,8 Dihydroxyadenine Normal [facility] Comment on above: Performed By: #### U DINA, LIPID, TSH, BNP, CMP, T7 #### [facility] [address] [address] [address] Suzie Brooks Ammonium Acid Urate Normal [facility] Comment on above: Performed By: #### U DINA, LIPID, TSH, BNP, CMP, T7 #### [facility] [address] [address] [address] Suzie Brooks Bilirubin Ql (U) [facility] Comment on above: Performed By: #### U DINA, LIPID, TSH, BNP, CMP, T7 #### [facility] [address] [address] [address] Suzie Brooks Ca Oxalate Dihydrate Normal [facility] Comment on above: Performed By: #### U DINA, LIPID, TSH, BNP, CMP, T7 #### [facility] [address] [address] [address] Suzie Brooks CaHPO4 (Brushite) [facility] Comment on above: Performed By: #### U DINA, LIPID, TSH, BNP, CMP, T7 #### [facility] [address] [address] [address] Suzie Brooks Calcium Bilirubinate Normal [facility] Comment on above: Performed By: #### U DINA, LIPID, TSH, BNP, CMP, T7 #### [facility] [address] [address] [address] Suzie Brooks Calcium Carbonate Normal [facility] Comment on above: Performed By: #### U DINA, LIPID, TSH, BNP, CMP, T7 #### [facility] [address] [address] [address] Suzie Brooks Calcium Oxalate Monohydrate 70 % Normal [facility] Comment on above: Performed By: #### U DINA, LIPID, TSH, BNP, CMP, T7 #### [facility] [address] [address] [address] Suzie Brooks Calcium Palmitate Normal [facility] Comment on above: Performed By: #### U DINA, LIPID, TSH, BNP, CMP, T7 #### [facility] [address] [address] [address] Suzie Brooks Calcium Phosphate Normal [facility] Comment on above: Performed By: #### U DINA, LIPID, TSH, BNP, CMP, T7 #### [facility] [address] [address] [address] Suzie Brooks Calcium Stearate Normal [facility] Comment on above: Performed By: #### U DINA, LIPID, TSH, BNP, CMP, T7 #### [facility] [address] [address] [address] Suzie Brooks Carbonate Apatite Normal [facility] Comment on above: Performed By: #### U DINA, LIPID, TSH, BNP, CMP, T7 #### [facility] [address] [address] [address] Suzie Brooks Cellular Material Normal [facility] Comment on above: Performed By: #### U DINA, LIPID, TSH, BNP, CMP, T7 #### [facility] [address] [address] [address] Suzie Brooks Cholesterol [facility] Comment on above: Performed By: #### U DINA, LIPID, TSH, BNP, CMP, T7 #### [facility] [address] [address] [address] Suzie Brooks Color (U) Brown Normal [facility] Comment on above: Performed By: #### U DINA, LIPID, TSH, BNP, CMP, T7 #### [facility] [address] [address] [address] Suzie Brooks Comment [facility] Comment on above: Performed By: #### U DINA, LIPID, TSH, BNP, CMP, T7 #### [facility] [address] [address] [address] Suzie Brooks Comment: Comment Normal [facility] Comment on above: Result Comment: Fantasma baez questions regarding Calculi Analysis contact [facility] at: [phone]. Performed By: #### U DINA, LIPID, TSH, BNP, CMP, T7 #### [facility] [address] [address] [address] Suzie Brooks Composition Comment [facility] Comment on above: Result Comment: Perc entage (Represents the % composition) Performed By: #### U DINA, LIPID, TSH, BNP, CMP, T7 #### [facility] [address] [address] [address] Suzie Brooks Cystine [facility] Comment on above: Performed By: #### U DINA, LIPID, TSH, BNP, CMP, T7 #### [facility] [address] [place] [address] Dr. Suzie Brooks Disclaimer: Comment Normal [facility] Comment on above: Result Comment: This test was developed and its performance characteristics determined by [facility]. It has not been cleared or approved by the Food and Drug Administration. Performed By: #### U DINA, LIPID, TSH, BNP, CMP, T7 #### [facility] [address] [place] [address] Dr. Suzie Brooks Dried Blood Normal [facility] Comment on above: Performed By: #### U DINA, LIPID, TSH, BNP, CMP, T7 #### [facility] [address] [place] [address] Dr. Suzie Brooks Drug or Metabolite Normal [facility] Comment on above: Performed By: #### U DINA, LIPID, TSH, BNP, CMP, T7 #### [facility] [address] [address] [address] Suzie Brooks Hydroxyapatite Normal [facility] Comment on above: Performed By: #### U DINA, LIPID, TSH, BNP, CMP, T7 #### [facility] [address] [place] [address] Dr. Suzie Brooks Mg NH4 PO4 (Struvite) [facility] Comment on above: Performed By: #### U DINA, LIPID, TSH, BNP, CMP, T7 #### [facility] [address] [place] [address] Dr. Suzie Brooks MgHPO4 (Newberyite) Normal [facility] Comment on above: Performed By: #### U DINA, LIPID, TSH, BNP, CMP, T7 #### [facility] [address] [address] [address] Suzie Brooks Other component(s) Normal [facility] Comment on above: Performed By: #### U DINA, LIPID, TSH, BNP, CMP, T7 #### [facility] [address] [address] [address] Suzie Brooks PDF . Normal [facility] Comment on above: Performed By: #### U DINA, LIPID, TSH, BNP, CMP, T7 #### [facility] [address] [address] [address] Suzie Brooks Photo Comment [facility] Comment on above: Result Comment: Phot ograph will follow under a separate cover Performed By: #### U DINA, LIPID, TSH, BNP, CMP, T7 #### [facility] [address] [address] [address] Suzie Brooks Please note: Comment Normal [facility] Comment on above: Result Comment: Calc shamika report will follow via computer, mail or websphere message broker developer delivery. Performed By: #### U DINA, LIPID, TSH, BNP, CMP, T7 #### [facility] [address] [address] [address] Suzie Brooks Size 3x[address] [facility] Comment on above: Result Comment: Mult iple pieces received. Dimensions of the largest piece reported. Performed By: #### U DINA, LIPID, TSH, BNP, CMP, T7 #### [facility] [address] [address] [address] Suzie Brooks Sodium Acid Urate Normal [facility] Comment on above: Performed By: #### U DINA, LIPID, TSH, BNP, CMP, T7 #### [facility] [address] [address] [address] Suzie Brooks Source Comment [facility] Comment on above: Result Comment: Jessica Reese Performed By: #### U DINA, LIPID, TSH, BNP, CMP, T7 #### [facility] [address] [address] [address] Suzie Brooks Triamterene Normal [facility] Comment on above: Performed By: #### U DINA, LIPID, TSH, BNP, CMP, T7 #### [facility] [address] [address] [address] Suzie Brooks Uric Acid 30 % Normal [facility] Comment on above: Performed By: #### U DINA, LIPID, TSH, BNP, CMP, T7 #### [facility] [address] [address] [address] Suzie Brooks Uric Acid Dihydrate Normal [facility] Comment on above: Performed By: #### U DINA, LIPID, TSH, BNP, CMP, T7 #### [facility] [address] [address] [address] Suzie Brooks Weight 12 mg Normal [facility] Comment on above: Performed By: #### U DINA, LIPID, TSH, BNP, CMP, T7 #### [facility] [address] [address] [address] Suzie Brooks Xanthine Normal [facility] Comment on above: Performed By: #### U DINA, LIPID, TSH, BNP, CMP, T7 #### [facility] [address] [address] [address] Suzie Brooks XR KUB 1 VIEWon [...] by: RAFAEL GRAVES Date: 2021-11-12 13:18 Normal [facility] XR CHEST 2 Von 11-08-2021 [...] CARLOS GROSS Date: 2021-11-08 15:50 Normal [facility] CBC AUTO DIFFon 11-07-2021 BASO # 0.0 103/ul Normal 0.0-0.1 [facility] Comment on above: Performed By: #### U DINA, LIPID, TSH, BNP, CMP, T7 #### [facility] [address] [place] [address] Dr. Suzie Brooks Basophils/100 WBC (Bld) 0.2 % Normal 0.2-2.0 [facility] Comment on above: Performed By: #### U DINA, LIPID, TSH, BNP, CMP, T7 #### [facility] [address] [address] [address] Suzie Brooks EO # 0.0 103/ul Normal 0.0-0.7 [facility] Comment on above: Performed By: #### U DINA, LIPID, TSH, BNP, CMP, T7 #### [facility] [address] [place] [address] Dr. Suzie Brooks Eosinophils/100 WBC (Bld) 0.0 % Critically low 0.9-7.0 [facility] Comment on above: Performed By: #### U DINA, LIPID, TSH, BNP, CMP, T7 #### [facility] [address] [address] [address] Suzie Brooks Erythrocyte distribution width (RBC) [Ratio] 14.0 % Normal 11.0-15.0 [facility] Comment on above: Performed By: #### U DINA, LIPID, TSH, BNP, CMP, T7 #### [facility] [address] [place] [address] Dr. Suzie Brooks Hematocrit (Bld) [Volume fraction] 41.8 % Critically low 42.0-54.0 [facility] Comment on above: Performed By: #### U DINA, LIPID, TSH, BNP, CMP, T7 #### [facility] [address] [address] [address] Suzie Brooks Hemoglobin (Bld) [Mass/Vol] 13.7 g/dL Critically low 14.0-18.0 [facility] Comment on above: Performed By: #### U DINA, LIPID, TSH, BNP, CMP, T7 #### [facility] [address] [address] [address] Suzie Brooks IG # 0.14 10e3/ul Critically high 0.00-0.[address] [facility] Comment on above: Performed By: #### U DINA, LIPID, TSH, BNP, CMP, T7 #### [facility] [address] [address] [address] Suzie Brooks IG % 0.9 % Critically high 0.0-0.5 [facility] Comment on above: Performed By: #### U DINA, LIPID, TSH, BNP, CMP, T7 #### [facility] [address] [address] [address] Suzie Brooks LYMPH # 1.6 103/ul Normal 1.2-3.8 [facility] Comment on above: Performed By: #### U DINA, LIPID, TSH, BNP, CMP, T7 #### [facility] [address] [address] [address] Suzie Brooks Lymphocytes/100 WBC (Bld) 10.2 % Critically low 20.5-60.0 [facility] Comment on above: Performed By: #### U DINA, LIPID, TSH, BNP, CMP, T7 #### [facility] [address] [address] [address] Suzie Brooks MANUAL DIFF REQ NO Normal [facility] Comment on above: Performed By: #### U DINA, LIPID, TSH, BNP, CMP, T7 #### [facility] [address] [address] [address] Suzie Brooks MCH (RBC) [Entitic mass] 28.8 pg Normal 25.9-34.0 [facility] Comment on above: Performed By: #### U DINA, LIPID, TSH, BNP, CMP, T7 #### [facility] [address] [place] [address] Dr. Suzie Brooks MCHC (RBC) [Mass/Vol] 32.8 g/dL Normal 29.9-35.2 [facility] Comment on above: Performed By: #### U DINA, LIPID, TSH, BNP, CMP, T7 #### [facility] [address] [address] [address] Suzie Brooks MCV (RBC) [Entitic vol] 87.8 fL Normal 80.0-94.0 [facility] Comment on above: Performed By: #### U DINA, LIPID, TSH, BNP, CMP, T7 #### [facility] [address] [place] [address] Dr. Suzie Brooks MONO # 1.0 103/ul Critically high 0.3-0.8 [facility] Comment on above: Performed By: #### U DINA, LIPID, TSH, BNP, CMP, T7 #### [facility] [address] [place] [address] Dr. Suzie Brooks Monocytes/100 WBC (Bld) 6.6 % Normal 1.7-12.0 [facility] Comment on above: Performed By: #### U DINA, LIPID, TSH, BNP, CMP, T7 #### [facility] [address] [place] [address] Dr. Suzie rBooks NEUT # 13.0 103/ul Critically high 1.4-6.5 [facility] Comment on above: Performed By: #### U DINA, LIPID, TSH, BNP, CMP, T7 #### [facility] [address] [place] [address] Dr. Suzie Brooks Neutrophils/100 WBC (Bld) 82.1 % Critically high 43.0-75.0 [facility] Comment on above: Performed By: #### U DINA, LIPID, TSH, BNP, CMP, T7 #### [facility] [address] [place] [address] Dr. Suzie Brooks Platelet mean volume (Bld) [Entitic vol] 9.3 fL Critically low 9.5-13.5 [facility] Comment on above: Performed By: #### U DINA, LIPID, TSH, BNP, CMP, T7 #### [facility] [address] [place] [address] Dr. Suzie Brooks PLT 301 103/ul Normal 150-450 [facility] Comment on above: Performed By: #### U DINA, LIPID, TSH, BNP, CMP, T7 #### [facility] [address] [place] [address] Dr. Suzie Brooks RBC 4.76 106/ul Normal 4.70-6.10 [facility] Comment on above: Performed By: #### U DINA, LIPID, TSH, BNP, CMP, T7 #### [facility] [address] [place] [address] Dr. Suzie Brooks WBC 15.9 103/ul Critically high 4.0-11.0 [facility] Comment on above: Performed By: #### U DINA, LIPID, TSH, BNP, CMP, T7 #### [facility] [address] [place] [address] Dr. Suzie Brooks POINT OF CARE GLUCOSEon 10-11 Glucose [Mass/Vol] 128 mg/dL Critically high 74-106 [facility] Comment on above: Performed By: #### U DINA, LIPID, TSH, BNP, CMP, T7 #### [facility] [address] [place] [address] Dr. Suzie Brooks PROF 14(COMP METB)on 022 Albumin [Mass/Vol] 3.1 g/dL Critically low 3.4-5.0 [facility] Comment on above: Performed By: #### M AG24 #### [facility] [address] [place] [address] Dr. Suzie Brooks Albumin/Globulin [Mass ratio] 0.9 {ratio} Normal [facility] Comment on above: Performed By: #### M AG24 #### [facility] [address] [place] [address] Dr. Suzie Brooks ALP [Catalytic activity/Vol] 52 U/L Normal 46-116 [facility] Comment on above: Performed By: #### M AG24 #### [facility] [address] [place] [address] Dr. Suzie Brooks ALT [Catalytic activity/Vol] 39 U/L Normal 16-63 [facility] Comment on above: Performed By: #### M AG24 #### [facility] [address] [address] [address] Suzie Brooks Anion gap [Moles/Vol] 14.7 mmol/L Normal [facility] Comment on above: Performed By: #### M AG24 #### [facility] [address] [place] [address] Dr. Suzie Brooks AST [Catalytic activity/Vol] 27 U/L Normal 15-37 [facility] Comment on above: Performed By: #### M AG24 #### [facility] [address] [place] [address] Dr. Suzie Brooks Bilirubin [Mass/Vol] 0.4 mg/dL Normal 0.2-1.3 [facility] Comment on above: Performed By: #### M AG24 #### [facility] [address] [place] [address] Dr. Suzie Brooks Calcium [Mass/Vol] 7.7 mg/dL Critically low 8.5-10.1 [facility] Comment on above: Performed By: #### M AG24 #### [facility] [address] [place] [address] Dr. Suzie Brooks Chloride [Moles/Vol] 104 mmol/L Normal 98-107 [facility] Comment on above: Performed By: #### M AG24 #### [facility] [address] [address] [address] Suzie Brooks CO2 [Moles/Vol] 23.4 mmol/L Normal 22.0-30.0 [facility] Comment on above: Performed By: #### M AG24 #### [facility] [address] [place] [address] Dr. Suzie Brooks Creatinine [Mass/Vol] 1.03 mg/dL Normal 0.66-1.25 [facility] Comment on above: Performed By: #### M AG24 #### [facility] [address] [address] [address] Suzie Brooks EGFR-AF CITIZEN OF [place] >60 Normal >=60 [facility] Comment on above: Performed By: #### M AG24 #### [facility] [address] [address] [address] Suzie Brooks EGFR-NON AF CITIZEN OF [place] >60 Normal >=60 [facility] Comment on above: Performed By: #### M AG24 #### [facility] [address] [address] [address] Suzie Brooks Globulin (S) [Mass/Vol] 3.5 g/dL Normal [facility] Comment on above: Performed By: #### M AG24 #### [facility] [address] [place] [address] Dr. Suzie Brooks Glucose [Mass/Vol] 142 mg/dL Critically high 74-106 [facility] Comment on above: Performed By: #### M AG24 #### [facility] [address] [address] [address] Suzie Brooks Potassium [Moles/Vol] 4.1 mmol/L Normal 3.4-5.0 [facility] Comment on above: Performed By: #### M AG24 #### [facility] [address] [place] [address] Dr. Suzie Brooks Protein [Mass/Vol] 6.6 g/dL Normal 6.1-8.2 [facility] Comment on above: Performed By: #### M AG24 #### [facility] [address] [place] [address] Dr. Suzie Brooks Sodium [Moles/Vol] 138 mmol/L Normal 137-145 [facility] Comment on above: Performed By: #### M AG24 #### [facility] [address] [place] [address] Dr. Suzie Brooks Urea nitrogen [Mass/Vol] 15.0 mg/dL Normal 7.0-18.0 [facility] Comment on above: Performed By: #### M AG24 #### [facility] [address] [place] [address] Dr. Suzie Brooks Urea nitrogen/Creatinine [Mass ratio] 14.6 mg/mg Normal [facility] Comment on above: Performed By: #### M AG24 #### [facility] [address] [place] [address] Dr. Suzie Brooks CBC AUTO DIFFon 11-06-2021 BASO # 0.1 103/ul Normal 0.0-0.1 [facility] Comment on above: Performed By: #### U DINA, LIPID, TSH, BNP, CMP, T7 #### [facility] [address] [place] [address] Dr. Suzie Brooks Basophils/100 WBC (Bld) 0.5 % Normal 0.2-2.0 [facility] Comment on above: Performed By: #### U DINA, LIPID, TSH, BNP, CMP, T7 #### [facility] [address] [place] [address] Dr. Suzie Brooks EO # 0.3 103/ul Normal 0.0-0.7 [facility] Comment on above: Performed By: #### U DINA, LIPID, TSH, BNP, CMP, T7 #### [facility] [address] [place] [address] Dr. Suzie Brooks Eosinophils/100 WBC (Bld) 2.1 % Normal 0.9-7.0 [facility] Comment on above: Performed By: #### U DINA, LIPID, TSH, BNP, CMP, T7 #### [facility] [address] [place] [address] Dr. Suzie Brooks Erythrocyte distribution width (RBC) [Ratio] 13.8 % Normal 11.0-15.0 [facility] Comment on above: Performed By: #### U DINA, LIPID, TSH, BNP, CMP, T7 #### [facility] [address] [place] [address] Dr. Suzie Brooks Hematocrit (Bld) [Volume fraction] 46.9 % Normal 42.0-54.0 [facility] Comment on above: Performed By: #### U DINA, LIPID, TSH, BNP, CMP, T7 #### [facility] [address] [place] [address] Dr. Suzie Brooks Hemoglobin (Bld) [Mass/Vol] 15.4 g/dL Normal 14.0-18.0 [facility] Comment on above: Performed By: #### U DINA, LIPID, TSH, BNP, CMP, T7 #### [facility] [facility] [address] [place] [address] Dr. Suzie Brooks IG # 0.05 10e3/ul Critically high 0.00-0.[address] [facility] Comment on above: Performed By: #### U DINA, LIPID, TSH, BNP, CMP, T7 #### [facility] [address] [place] [address] Dr. Suzie Brooks IG % 0.4 % Normal 0.0-0.5 [facility] Comment on above: Performed By: #### U DINA, LIPID, TSH, BNP, CMP, T7 #### [facility] [address] [place] [address] Dr. Suzie Brooks LYMPH # 2.8 103/ul Normal 1.2-3.8 [facility] Comment on above: Performed By: #### U DINA, LIPID, TSH, BNP, CMP, T7 #### [facility] [address] [place] [address] Dr. Suzie Brooks Lymphocytes/100 WBC (Bld) 22.5 % Normal 20.5-60.0 [facility] Comment on above: Performed By: #### U DINA, LIPID, TSH, BNP, CMP, T7 #### [facility] [address] [place] [address] Dr. Suzie Brooks MANUAL DIFF REQ NO Normal [facility] Comment on above: Performed By: #### U DINA, LIPID, TSH, BNP, CMP, T7 #### [facility] [address] [place] [address] Dr. Suzie Brooks MCH (RBC) [Entitic mass] 28.6 pg Normal 25.9-34.0 [facility] Comment on above: Performed By: #### U DINA, LIPID, TSH, BNP, CMP, T7 #### [facility] [address] [place] [address] Dr. Suzie Brooks MCHC (RBC) [Mass/Vol] 32.8 g/dL Normal 29.9-35.2 [facility] Comment on above: Performed By: #### U DINA, LIPID, TSH, BNP, CMP, T7 #### [facility] [address] [place] [address] Dr. Suzie Brooks MCV (RBC) [Entitic vol] 87.0 fL Normal 80.0-94.0 [facility] Comment on above: Performed By: #### U DINA, LIPID, TSH, BNP, CMP, T7 #### [facility] [address] [place] [address] Dr. Suzie Brooks MONO # 0.9 103/ul Critically high 0.3-0.8 [facility] Comment on above: Performed By: #### U DINA, LIPID, TSH, BNP, CMP, T7 #### [facility] [address] [place] [address] Dr. Suzie Brooks Monocytes/100 WBC (Bld) 6.9 % Normal 1.7-12.0 [facility] Comment on above: Performed By: #### U DINA, LIPID, TSH, BNP, CMP, T7 #### [facility] [address] [place] [address] Dr. Suzie Brooks NEUT # 8.4 103/ul Critically high 1.4-6.5 [facility] Comment on above: Performed By: #### U DINA, LIPID, TSH, BNP, CMP, T7 #### [facility] [address] [place] [address] Dr. Suzie Brooks Neutrophils/100 WBC (Bld) 67.6 % Normal 43.0-75.0 [facility] Comment on above: Performed By: #### U DINA, LIPID, TSH, BNP, CMP, T7 #### [facility] [address] [place] [address] Dr. Suzie Brooks Platelet mean volume (Bld) [Entitic vol] 9.6 fL Normal 9.5-13.5 [facility] Comment on above: Performed By: #### U DINA, LIPID, TSH, BNP, CMP, T7 #### [facility] [address] [place] [address] Dr. Suzie Brooks PLT 284 103/ul Normal 150-450 [facility] Comment on above: Performed By: #### U DINA, LIPID, TSH, BNP, CMP, T7 #### [facility] [address] [place] [address] Dr. Suzie Brooks RBC 5.39 106/ul Normal 4.70-6.10 [facility] Comment on above: Performed By: #### U DINA, LIPID, TSH, BNP, CMP, T7 #### [facility] [address] [place] [address] Dr. Suzie Brooks WBC 12.5 103/ul Critically high 4.0-11.0 [facility] Comment on above: Performed By: #### U DINA, LIPID, TSH, BNP, CMP, T7 #### [facility] [address] [place] [address] Dr. Suzie Brooks CULTURE BLOODon 11-06-2021 Microscopic examination of blood, culture Culture Observations: NO GROWTH AT 5 DAYS. Normal The [facility] Comment on above: Performed By: #### M AG24 #### [facility] [address] [place] [address] Dr. Suzie Brooks CULTURE URINEon 11-06-2021 CULTURE URINE Culture Observations : NO GROWTH. Normal The [facility] Comment on above: Performed By: #### M AG24 #### [facility] [address] [place] [address] Dr. Suzie Brooks Covid-19 PCR (CVDTB)on 10-10 SARS-CoV-2 (COVID-19) RNA SUKHJINDER+probe Ql (Unsp spec) Not detected Normal NOT DETECTED The [facility] Comment on above: Result Comment: When diagnostic testing is negative, the possibility of a false negative should be considered in the context of a patient's recent exposures and the presence of clinical signs and symptoms consistent with SARS-CoV-2. This test is not yet approved or cleared by the [place] Food and Drug Administration (FDA). This test was developed by [employer], [place], [place]. The performance characteristics of this test were validated by The [facility]. The results are not intended to be used as the sole means for clinical diagnosis or patient management decisions. The [facility] is authorized under Clinical Laboratory [...] for this test is supported by the Personnel Counselor of Health and Human Service's declaration that [...] DINA, LIPID, TSH, BNP, CMP, T7 #### [facility] [address] [place] [address] Dr. Suzie Brooks ER URINE PROFILEon 2 Bilirubin Ql (U) Negative Normal NEGATIVE The [facility] Comment on above: Performed By: #### U DINA, LIPID, TSH, BNP, CMP, T7 #### [facility] [address] [place] [address] Dr. Suzie Brooks Clarity (U) CLEAR Normal CLEAR [facility] Comment on above: Performed By: #### U DINA, LIPID, TSH, BNP, CMP, T7 #### [facility] [address] [place] [address] Dr. Suzie Brooks Color (U) YELLOW Normal YELLOW The [facility] Comment on above: Performed By: #### U DINA, LIPID, TSH, BNP, CMP, T7 #### [facility] [address] [place] [address] Dr. Suzie Brooks ERUAHD A micrscopic examina tion will be performed if indicated. Normal The [facility] Comment on above: Performed By: #### U DINA, LIPID, TSH, BNP, CMP, T7 #### [facility] [address] [address] [address] Suzie Brooks Glucose Ql (U) Negative Normal NEGATIVE The [facility] Comment on above: Performed By: #### U DINA, LIPID, TSH, BNP, CMP, T7 #### [facility] [address] [address] [address] Suzie Brooks Hemoglobin Ql (U) LARGE Abnormal NEGATIVE The [facility] Comment on above: Performed By: #### U DINA, LIPID, TSH, BNP, CMP, T7 #### [facility] [address] [place] [address] Dr. Suzie Brooks Ketones Ql (U) Negative Normal NEGATIVE The [facility] Comment on above: Performed By: #### U DINA, LIPID, TSH, BNP, CMP, T7 #### [facility] [address] [place] [address] Dr. Suzie Brooks LEUKOCYTES TRACE Abnormal NEGATIVE [facility] Comment on above: Performed By: #### U DINA, LIPID, TSH, BNP, CMP, T7 #### [facility] [address] [place] [address] Dr. Suzie Brooks Nitrite Ql (U) Negative Normal NEGATIVE The [facility] Comment on above: Performed By: #### U DINA, LIPID, TSH, BNP, CMP, T7 #### [facility] [address] [place] [address] Dr. Suzie Brooks pH (U) 5.0 [pH] Normal 5-9 [facility] Comment on above: Performed By: #### U DINA, LIPID, TSH, BNP, CMP, T7 #### [facility] [address] [address] [address] Suzie Brooks Protein (U) [Mass/Vol] 100 mg/dL Abnormal NEGATIVE/ TRACE The [facility] Comment on above: Performed By: #### U DINA, LIPID, TSH, BNP, CMP, T7 #### [facility] [address] [place] [address] Dr. Suzie Brooks SPEC GRAVITY 1.030 Abnormal 1.005-<=1.02 5 [facility] Comment on above: Performed By: #### U DINA, LIPID, TSH, BNP, CMP, T7 #### [facility] [address] [address] [address] Suzie Brooks UR MICRO IND INDICATED Normal [facility] Comment on above: Performed By: #### U DINA, LIPID, TSH, BNP, CMP, T7 #### [facility] [address] [address] [address] Suzie Brooks Urobilinogen Qn (U) 0.2 {Behzad'U}/dL Normal 0.2 - 1. 0 [facility] Comment on above: Performed By: #### U DINA, LIPID, TSH, BNP, CMP, T7 #### [facility] [address] [address] [address] Suzie Brooks LACTATE/LACTIC ACIDon 2021 Lactate [Moles/Vol] 1.0 mmol/L Normal 0.7-2.0 [facility] Comment on above: Performed By: #### U DINA, LIPID, TSH, BNP, CMP, T7 #### [facility] [address] [place] [address] Dr. Suzie Brooks PROF 14(COMP METB)on 022 Albumin [Mass/Vol] 3.8 g/dL Normal 3.4-5.0 [facility] Comment on above: Performed By: #### U DINA, LIPID, TSH, BNP, CMP, T7 #### [facility] [address] [place] [address] Dr. Suzie Brooks Albumin/Globulin [Mass ratio] 1.0 {ratio} Normal [facility] Comment on above: Performed By: #### U DINA, LIPID, TSH, BNP, CMP, T7 #### [facility] [address] [place] [address] Dr. Suzie Brooks ALP [Catalytic activity/Vol] 66 U/L Normal 46-116 [facility] Comment on above: Performed By: #### U DINA, LIPID, TSH, BNP, CMP, T7 #### [facility] [address] [place] [address] Dr. Suzie Brooks ALT [Catalytic activity/Vol] 52 U/L Normal 16-63 [facility] Comment on above: Performed By: #### U DINA, LIPID, TSH, BNP, CMP, T7 #### [facility] [address] [address] [address] Suzie Brooks Anion gap [Moles/Vol] 14.7 mmol/L Normal [facility] Comment on above: Performed By: #### U DINA, LIPID, TSH, BNP, CMP, T7 #### [facility] [address] [address] [address] Suzie Brooks AST [Catalytic activity/Vol] 40 U/L Critically high 15-37 [facility] Comment on above: Performed By: #### U DINA, LIPID, TSH, BNP, CMP, T7 #### [facility] [address] [place] [address] Dr. Suzie Brooks Bilirubin [Mass/Vol] 0.6 mg/dL Normal 0.2-1.3 [facility] Comment on above: Performed By: #### U DINA, LIPID, TSH, BNP, CMP, T7 #### [facility] [address] [address] [address] Suzie Brooks Calcium [Mass/Vol] 8.2 mg/dL Critically low 8.5-10.1 Th e [facility] Comment on above: Performed By: #### U DINA, LIPID, TSH, BNP, CMP, T7 #### [facility] [address] [address] [address] Suzie Brooks Chloride [Moles/Vol] 102 mmol/L Normal 98-107 [facility] Comment on above: Performed By: #### U DINA, LIPID, TSH, BNP, CMP, T7 #### [facility] [address] [address] [address] Suzie Brooks CO2 [Moles/Vol] 27.4 mmol/L Normal 22.0-30.0 [facility] Comment on above: Performed By: #### U DINA, LIPID, TSH, BNP, CMP, T7 #### [facility] [address] [place] [address] Dr. Suzie Brooks Creatinine [Mass/Vol] 1.05 mg/dL Normal 0.66-1.25 [facility] Comment on above: Performed By: #### U DINA, LIPID, TSH, BNP, CMP, T7 #### [facility] [address] [address] [address] Suzie Brooks EGFR-AF CITIZEN [place] >60 Normal >=60 [facility] Comment on above: Performed By: #### U DINA, LIPID, TSH, BNP, CMP, T7 #### [facility] [address] [address] [address] Suzie Brooks EGFR-NON AF CITIZEN OF [place] >60 Normal >=60 [facility] Comment on above: Performed By: #### U DINA, LIPID, TSH, BNP, CMP, T7 #### [facility] [address] [address] [address] Suzie Brooks Globulin (S) [Mass/Vol] 3.7 g/dL Normal [facility] Comment on above: Performed By: #### U DINA, LIPID, TSH, BNP, CMP, T7 #### [facility] [address] [place] [address] Dr. Suzie Brooks Glucose [Mass/Vol] 124 mg/dL Critically high 74-106 [facility] Comment on above: Performed By: #### U DINA, LIPID, TSH, BNP, CMP, T7 #### [facility] [address] [address] [address] Suzie Brooks Potassium [Moles/Vol] 4.1 mmol/L Normal 3.4-5.0 [facility] Comment on above: Performed By: #### U DINA, LIPID, TSH, BNP, CMP, T7 #### [facility] [address] [address] [address] Suzie Brooks Protein [Mass/Vol] 7.5 g/dL Normal 6.1-8.2 The [facility] Comment on above: Performed By: #### U DINA, LIPID, TSH, BNP, CMP, T7 #### [facility] [address] [place] [address] Dr. Suzie Brooks Sodium [Moles/Vol] 140 mmol/L Normal 137-145 [facility] Comment on above: Performed By: #### U DINA, LIPID, TSH, BNP, CMP, T7 #### [facility] [address] [address] [address] Suzie Brooks Urea nitrogen [Mass/Vol] 16.0 mg/dL Normal 7.0-18.0 [facility] Comment on above: Performed By: #### U DINA, LIPID, TSH, BNP, CMP, T7 #### [facility] [address] [address] [address] Suzie Brooks Urea nitrogen/Creatinine [Mass ratio] 15.2 mg/mg Normal [facility] Comment on above: Performed By: #### U DINA, LIPID, TSH, BNP, CMP, T7 #### [facility] [address] [address] [address] Suzie Brooks URINE MICROSCOPIC ONLYon BACTERIA SMALL Abnormal NONE SEEN The [facility] Comment on above: Performed By: #### U DINA, LIPID, TSH, BNP, CMP, T7 #### [facility] [address] [place] [address] Dr. Suzie Brooks Bacteria identified Cx Nom (U) INDICATED Normal [facility] Comment on above: Performed By: #### U DINA, LIPID, TSH, BNP, CMP, T7 #### [facility] [address] [place] [address] Dr. Suzie Brooks CAST NONE SEEN Normal NONE SEEN [facility] Comment on above: Performed By: #### U DINA, LIPID, TSH, BNP, CMP, T7 #### [facility] [address] [address] [address] Suzie Brooks Crystals LM Nom (Urine sed) NONE SEEN Normal NONE SEEN The [facility] Comment on above: Performed By: #### U DINA, LIPID, TSH, BNP, CMP, T7 #### [facility] [address] [address] [address] Suzie Brooks Epithelial cells LM Ql (Urine sed) RARE Normal NONE SEEN /RARE The [facility] Comment on above: Performed By: #### U DINA, LIPID, TSH, BNP, CMP, T7 #### [facility] [address] [address] [address] Suzie Brooks MUCOUS NONE SEEN Normal NONE SEEN The [facility] Comment on above: Performed By: #### U DINA, LIPID, TSH, BNP, CMP, T7 #### [facility] [address] [place], [place] [address] Dr. Suzie Brooks RBC 50-75 Abnormal 0-2 [facility] Comment on above: Performed By: #### U DINA, LIPID, TSH, BNP, CMP, T7 #### [facility] [address] [place], [place] [address] Dr. Suzie Brooks WBC 20-50 Abnormal NONE SEEN The [facility] Comment on above: Performed By: #### U DINA, LIPID, TSH, BNP, CMP, T7 #### [facility] [address] [place], [place] [address] Dr. Suzie Brooks XR KUB 1 VIEWon [...] BEHZAD SANTOS Date: 2021-11-06 21:58 Normal The [facility] XR KUB 1 VIEW EXAMINATION: [...] RAFAEL GRAVES Date: 2021-11-06 08:06 Normal [facility] CBC AUTO DIFFon 11-05-2021 BASO # 0.1 103/ul Normal 0.0-0.1 [facility] Comment on above: Performed By: #### U DINA, LIPID, TSH, BNP, CMP, T7 #### [facility] [address] [address] [address] Suzie Brooks Basophils/100 WBC (Bld) 0.6 % Normal 0.2-2.0 [facility] Comment on above: Performed By: #### U DINA, LIPID, TSH, BNP, CMP, T7 #### [facility] [address] [place] [address] Dr. Suzie Brooks EO # 0.3 103/ul Normal 0.0-0.7 [facility] Comment on above: Performed By: #### U DINA, LIPID, TSH, BNP, CMP, T7 #### [facility] [address] [place] [address] Dr. Suzie Brooks Eosinophils/100 WBC (Bld) 2.2 % Normal 0.9-7.0 [facility] Comment on above: Performed By: #### U DINA, LIPID, TSH, BNP, CMP, T7 #### [facility] [address] [place] [address] Dr. Suzie Brooks Erythrocyte distribution width (RBC) [Ratio] 13.7 % Normal 11.0-15.0 [facility] Comment on above: Performed By: #### U DINA, LIPID, TSH, BNP, CMP, T7 #### [facility] [address] [place] [address] Dr. Suzie Brooks Hematocrit (Bld) [Volume fraction] 49.0 % Normal 42.0-54.0 [facility] Comment on above: Performed By: #### U DINA, LIPID, TSH, BNP, CMP, T7 #### [facility] [address] [place] [address] Dr. Suzie Brooks Hemoglobin (Bld) [Mass/Vol] 15.9 g/dL Normal 14.0-18.0 [facility] Comment on above: Performed By: #### U DINA, LIPID, TSH, BNP, CMP, T7 #### [facility] [address] [place] [address] Dr. Suzie Brooks IG # 0.07 10e3/ul Critically high 0.00-0.[address] [facility] Comment on above: Performed By: #### U DINA, LIPID, TSH, BNP, CMP, T7 #### [facility] [address] [place] [address] Dr. Suzie Brooks IG % 0.5 % Normal 0.0-0.5 [facility] Comment on above: Performed By: #### U DINA, LIPID, TSH, BNP, CMP, T7 #### [facility] [address] [place] [address] Dr. Suzie Brooks LYMPH # 3.1 103/ul Normal 1.2-3.8 [facility] Comment on above: Performed By: #### U DINA, LIPID, TSH, BNP, CMP, T7 #### [facility] [address] [place] [address] Dr. Suzie Brooks Lymphocytes/100 WBC (Bld) 23.8 % Normal 20.5-60.0 [facility] Comment on above: Performed By: #### U DINA, LIPID, TSH, BNP, CMP, T7 #### [facility] [address] [place] [address] Dr. Suzie Brooks MANUAL DIFF REQ NO Normal [facility] Comment on above: Performed By: #### U DINA, LIPID, TSH, BNP, CMP, T7 #### [facility] [address] [place] [address] Dr. Suzie Brooks MCH (RBC) [Entitic mass] 28.8 pg Normal 25.9-34.0 [facility] Comment on above: Performed By: #### U DINA, LIPID, TSH, BNP, CMP, T7 #### [facility] [address] [place] [address] Dr. Suzie Brooks MCHC (RBC) [Mass/Vol] 32.4 g/dL Normal 29.9-35.2 [facility] Comment on above: Performed By: #### U DINA, LIPID, TSH, BNP, CMP, T7 #### [facility] [address] [place] [address] Dr. Suzie Brooks MCV (RBC) [Entitic vol] 88.8 fL Normal 80.0-94.0 [facility] Comment on above: Performed By: #### U DINA, LIPID, TSH, BNP, CMP, T7 #### [facility] [address] [address] [address] Suzie Brooks MONO # 0.9 103/ul Critically high 0.3-0.8 [facility] Comment on above: Performed By: #### U DINA, LIPID, TSH, BNP, CMP, T7 #### [facility] [address] [place] [address] Dr. Suzie Brooks Monocytes/100 WBC (Bld) 6.8 % Normal 1.7-12.0 [facility] Comment on above: Performed By: #### U DINA, LIPID, TSH, BNP, CMP, T7 #### [facility] [address] [place] [address] Dr. Suzie Brooks NEUT # 8.7 103/ul Critically high 1.4-6.5 [facility] Comment on above: Performed By: #### U DINA, LIPID, TSH, BNP, CMP, T7 #### [facility] [address] [place] [address] Dr. Suzie Brooks Neutrophils/100 WBC (Bld) 66.1 % Normal 43.0-75.0 [facility] Comment on above: Performed By: #### U DINA, LIPID, TSH, BNP, CMP, T7 #### [facility] [address] [place] [address] Dr. Suzie Brooks Platelet mean volume (Bld) [Entitic vol] 9.4 fL Critically low 9.5-13.5 [facility] Comment on above: Performed By: #### U DINA, LIPID, TSH, BNP, CMP, T7 #### [facility] [address] [place] [address] Dr. Suzie Brooks PLT 278 103/ul Normal 150-450 [facility] Comment on above: Performed By: #### U DINA, LIPID, TSH, BNP, CMP, T7 #### [facility] [address] [place] [address] Dr. Suzie Brooks RBC 5.52 106/ul Normal 4.70-6.10 [facility] Comment on above: Performed By: #### U DINA, LIPID, TSH, BNP, CMP, T7 #### [facility] [address] [place], [place] [address] Dr. Suzie Brooks WBC 13.1 103/ul Critically high 4.0-11.0 [facility] Comment on above: Performed By: #### U DINA, LIPID, TSH, BNP, CMP, T7 #### [facility] [address] [place], [place] [address] ABD/PELVIS WO CONon [...] RAFAEL GRAVES Date: 2021-11-05 11:46 Normal [facility] CULTURE URINEon 11-05-2021 CULTURE URINE Culture Observations : No growth Normal [facility] Comment on above: Performed By: #### M AG24 #### [facility] [address] [place] [address] Dr. Suzie Brooks ER URINE PROFILEon 2 Bilirubin Ql (U) Negative Normal NEGATIVE [facility] Comment on above: Performed By: #### C VDTBH #### [facility] [address] [place] [address] Dr. Suzie Brooks Clarity (U) CLEAR Normal CLEAR [facility] Comment on above: Performed By: #### C VDTBH #### [facility] [address] [place] [address] Dr. Suzie Brooks Color (U) DK. YELLOW Normal YELLOW [facility] Comment on above: Performed By: #### C VDTBH #### [facility] [address] [place] [address] Dr. Suzie Brooks ERUAHD A micrscopic examina tion will be performed if indicated. Normal [facility] Comment on above: Performed By: #### C VDTBH #### [facility] [address] [place] [address] Dr. Suzie Brooks Glucose Ql (U) Negative Normal NEGATIVE The [facility] Comment on above: Performed By: #### C VDTBH #### [facility] [address] [place] [address] Dr. Suzie Brooks Hemoglobin Ql (U) LARGE Abnormal NEGATIVE The [facility] Comment on above: Performed By: #### C VDTBH #### [facility] [address] [place] [address] Dr. Suzie Brooks Ketones Ql (U) Negative Normal NEGATIVE [facility] Comment on above: Performed By: #### C VDTBH #### [facility] [address] [place] [address] Dr. Suzie Brooks LEUKOCYTES Negative Normal NEGATIVE [facility] Comment on above: Performed By: #### C VDTBH #### [facility] [address] [place] [address] Dr. Suzie Brooks Nitrite Ql (U) Negative Normal NEGATIVE The [facility] Comment on above: Performed By: #### C VDTBH #### [facility] [address] [place] [address] Dr. Suzie Brooks pH (U) 5.0 [pH] Normal 5-9 [facility] Comment on above: Performed By: #### C VDTBH #### [facility] [address] [place] [address] Dr. Suzie Brooks Protein (U) [Mass/Vol] 100 mg/dL Abnormal NEGATIVE/ TRACE [facility] Comment on above: Performed By: #### C VDTBH #### [facility] [address] [place] [address] Dr. Suzie Brooks SPEC GRAVITY >=1.030 Abnormal 1.005-<=1.02 5 [facility] Comment on above: Performed By: #### C VDTBH #### [facility] [address] [place] [address] Dr. Suzie Brooks UR MICRO IND INDICATED Normal [facility] Comment on above: Performed By: #### C VDTBH #### [facility] [address] [place] [address] Dr. Suzie Brooks Urobilinogen Qn (U) 0.2 {Behzad'U}/dL Normal 0.2 - 1. 0 [facility] Comment on above: Performed By: #### C VDTBH #### [facility] [address] [place] [address] Dr. Suzie Brooks PROF 14(COMP METB)on 022 Albumin [Mass/Vol] 3.9 g/dL Normal 3.4-5.0 [facility] Comment on above: Performed By: #### U DINA, LIPID, TSH, BNP, CMP, T7 #### [facility] [address] [place] [address] Dr. Suzie Brooks Albumin/Globulin [Mass ratio] 1.1 {ratio} Normal [facility] Comment on above: Performed By: #### U DINA, LIPID, TSH, BNP, CMP, T7 #### [facility] [address] [place] [address] Dr. Suzie Brooks ALP [Catalytic activity/Vol] 64 U/L Normal 46-116 [facility] Comment on above: Performed By: #### U DINA, LIPID, TSH, BNP, CMP, T7 #### [facility] [address] [place] [address] Dr. Suzie Brooks ALT [Catalytic activity/Vol] 57 U/L Normal 16-63 [facility] Comment on above: Performed By: #### U DINA, LIPID, TSH, BNP, CMP, T7 #### [facility] [address] [place] [address] Dr. Suzie Brooks Anion gap [Moles/Vol] 14.4 mmol/L Normal [facility] Comment on above: Performed By: #### U DINA, LIPID, TSH, BNP, CMP, T7 #### [facility] [address] [place] [address] Dr. Suzie Brooks AST [Catalytic activity/Vol] 51 U/L Critically high 15-37 [facility] Comment on above: Performed By: #### U DINA, LIPID, TSH, BNP, CMP, T7 #### [facility] [address] [place] [address] Dr. Suzie Brooks Bilirubin [Mass/Vol] 0.8 mg/dL Normal 0.2-1.3 [facility] Comment on above: Performed By: #### U DINA, LIPID, TSH, BNP, CMP, T7 #### [facility] [address] [place] [address] Dr. Suzie Brooks Calcium [Mass/Vol] 8.5 mg/dL Normal 8.5-10.1 [facility] Comment on above: Performed By: #### U DINA, LIPID, TSH, BNP, CMP, T7 #### [facility] [address] [place] [address] Dr. Suzie Brooks Chloride [Moles/Vol] 103 mmol/L Normal 98-107 [facility] Comment on above: Performed By: #### U DINA, LIPID, TSH, BNP, CMP, T7 #### [facility] [address] [place] [address] Dr. Suzie Brooks CO2 [Moles/Vol] 26.8 mmol/L Normal 22.0-30.0 [facility] Comment on above: Performed By: #### U DINA, LIPID, TSH, BNP, CMP, T7 #### [facility] [address] [address] [address] Suzie Brooks Creatinine [Mass/Vol] 0.98 mg/dL Normal 0.66-1.25 [facility] Comment on above: Performed By: #### U DINA, LIPID, TSH, BNP, CMP, T7 #### [facility] [address] [place] [address] Dr. Suzie Brooks EGFR-AF CITIZ[place] >60 Normal >=60 [facility] Comment on above: Performed By: #### U DINA, LIPID, TSH, BNP, CMP, T7 #### [facility] [address] [place] [address] Dr. Suzie Brooks EGFR-NON AF CITIZEN [place] >60 Normal >=60 [facility] Comment on above: Performed By: #### U DINA, LIPID, TSH, BNP, CMP, T7 #### [facility] [address] [place] [address] Dr. Suzie Brooks Globulin (S) [Mass/Vol] 3.7 g/dL Normal [facility] Comment on above: Performed By: #### U DINA, LIPID, TSH, BNP, CMP, T7 #### [facility] [address] [place] [address] Dr. Suzie Brooks Glucose [Mass/Vol] 118 mg/dL Critically high 74-106 [facility] Comment on above: Performed By: #### U DINA, LIPID, TSH, BNP, CMP, T7 #### [facility] [address] [place] [address] Dr. Suzie Brooks Potassium [Moles/Vol] 4.2 mmol/L Normal 3.4-5.0 [facility] Comment on above: Performed By: #### U DINA, LIPID, TSH, BNP, CMP, T7 #### [facility] [address] [place] [address] Dr. Suzie Brooks Protein [Mass/Vol] 7.6 g/dL Normal 6.1-8.2 [facility] Comment on above: Performed By: #### U DINA, LIPID, TSH, BNP, CMP, T7 #### [facility] [address] [place] [address] Dr. Suzie Brooks Sodium [Moles/Vol] 140 mmol/L Normal 137-145 [facility] Comment on above: Performed By: #### U DINA, LIPID, TSH, BNP, CMP, T7 #### [facility] [address] [place] [address] Dr. Suzie Brooks Urea nitrogen [Mass/Vol] 14.0 mg/dL Normal 7.0-18.0 [facility] Comment on above: Performed By: #### U DINA, LIPID, TSH, BNP, CMP, T7 #### [facility] [address] [place] [address] Dr. Suzie Brooks Urea nitrogen/Creatinine [Mass ratio] 14.3 mg/mg Normal [facility] Comment on above: Performed By: #### U DINA, LIPID, TSH, BNP, CMP, T7 #### [facility] [address] [place] [address] Dr. Suzie Brooks URINE MICROSCOPIC ONLYon BACTERIA MODERATE Abnormal NONE SEEN [facility] Comment on above: Performed By: #### C VDTBH #### [facility] [address] [place] [address] Dr. Suzie Brooks Bacteria identified Cx Nom (U) INDICATED Normal [facility] Comment on above: Performed By: #### C VDTBH #### [facility] [address] [place] [address] Dr. Suzie Brooks CAST SEEN Abnormal NONE SEEN [facility] Comment on above: Performed By: #### C VDTBH #### [facility] [address] [place] [address] Dr. Suzie Brooks Crystals LM Nom (Urine sed) NONE SEEN Normal NONE SEEN [facility] Comment on above: Performed By: #### C VDTBH #### [facility] [address] [place] [address] Dr. Suzie Brooks Epithelial cells LM Ql (Urine sed) RARE Normal NONE SEEN /RARE [facility] Comment on above: Performed By: #### C VDTBH #### [facility] [address] [address] [address] Suzie Brooks HYALINE CAST RARE Normal [facility] Comment on above: Performed By: #### C VDTBH #### [facility] [address] [address] [address] Suzie Brooks MUCOUS NONE SEEN Normal NONE SEEN [facility] Comment on above: Performed By: #### C VDTBH #### [facility] [address] [address] [address] Suzie Brooks RBC (U) [#/Vol] /uL Abnormal 0-2 [facility] Comment on above: Performed By: #### C VDTBH #### [facility] [address] [place] [address] Dr. Suzie Brooks WBC NONE SEEN Normal NONE SEEN [facility] Comment on above: Performed By: #### C VDTBH #### [facility] [address] [place] [address] Dr. Suzie Brooks XR KUB 1 VIEWon [...] BEHZAD CARRASQUILLO Date: 2021-11-01 12:07 Normal [facility] CBC AUTO DIFFon 10-26-2021 BASO # 0.1 103/ul Normal 0.0-0.1 [facility] Comment on above: Performed By: #### U DINA, LIPID, TSH, BNP, CMP, T7 #### [facility] [address] [address] [address] Suzie Brooks Basophils/100 WBC (Bld) 0.7 % Normal 0.2-2.0 [facility] Comment on above: Performed By: #### U DINA, LIPID, TSH, BNP, CMP, T7 #### [facility] [address] [place] [address] Dr. Suzie Brooks EO # 0.2 103/ul Normal 0.0-0.7 [facility] Comment on above: Performed By: #### U DINA, LIPID, TSH, BNP, CMP, T7 #### [facility] [address] [place] [address] Dr. Suzie Brooks Eosinophils/100 WBC (Bld) 1.5 % Normal 0.9-7.0 [facility] Comment on above: Performed By: #### U DINA, LIPID, TSH, BNP, CMP, T7 #### [facility] [address] [place] [address] Dr. Suzie Brooks Erythrocyte distribution width (RBC) [Ratio] 13.9 % Normal 11.0-15.0 [facility] Comment on above: Performed By: #### U DINA, LIPID, TSH, BNP, CMP, T7 #### [facility] [address] [place] [address] Dr. Suzie Brooks Hematocrit (Bld) [Volume fraction] 47.5 % Normal 42.0-54.0 [facility] Comment on above: Performed By: #### U DINA, LIPID, TSH, BNP, CMP, T7 #### [facility] [address] [place] [address] Dr. Suzie Brooks Hemoglobin (Bld) [Mass/Vol] 15.5 g/dL Normal 14.0-18.0 [facility] Comment on above: Performed By: #### U DINA, LIPID, TSH, BNP, CMP, T7 #### [facility] [address] [place] [address] Dr. Suzie Brooks IG # 0.06 10e3/ul Critically high 0.00-0.[address] [facility] Comment on above: Performed By: #### U DINA, LIPID, TSH, BNP, CMP, T7 #### [facility] [address] [place] [address] Dr. Suzie Brooks IG % 0.5 % Normal 0.0-0.5 [facility] Comment on above: Performed By: #### U DINA, LIPID, TSH, BNP, CMP, T7 #### [facility] [address] [place] [address] Dr. Suzie Brooks LYMPH # 2.6 103/ul Normal 1.2-3.8 [facility] Comment on above: Performed By: #### U DINA, LIPID, TSH, BNP, CMP, T7 #### [facility] [address] [place] [address] Dr. Suzie Brooks Lymphocytes/100 WBC (Bld) 23.1 % Normal 20.5-60.0 [facility] Comment on above: Performed By: #### U DINA, LIPID, TSH, BNP, CMP, T7 #### [facility] [address] [place] [address] Dr. Suzie Brooks MANUAL DIFF REQ NO Normal [facility] Comment on above: Performed By: #### U DINA, LIPID, TSH, BNP, CMP, T7 #### [facility] [address] [place] [address] Dr. Suzie Brooks MCH (RBC) [Entitic mass] 28.9 pg Normal 25.9-34.0 [facility] Comment on above: Performed By: #### U DINA, LIPID, TSH, BNP, CMP, T7 #### [facility] [address] [place] [address] Dr. Suzie Brooks MCHC (RBC) [Mass/Vol] 32.6 g/dL Normal 29.9-35.2 [facility] Comment on above: Performed By: #### U DINA, LIPID, TSH, BNP, CMP, T7 #### [facility] [address] [place] [address] Dr. Suzie Brooks MCV (RBC) [Entitic vol] 88.5 fL Normal 80.0-94.0 [facility] Comment on above: Performed By: #### U DINA, LIPID, TSH, BNP, CMP, T7 #### [facility] [address] [place] [address] Dr. Suzie Brooks MONO # 0.9 103/ul Critically high 0.3-0.8 [facility] Comment on above: Performed By: #### U DINA, LIPID, TSH, BNP, CMP, T7 #### [facility] [address] [address] [address] Suzie Brooks Monocytes/100 WBC (Bld) 7.9 % Normal 1.7-12.0 [facility] Comment on above: Performed By: #### U DINA, LIPID, TSH, BNP, CMP, T7 #### [facility] [address] [address] [address] Suzie Brooks NEUT # 7.4 103/ul Critically high 1.4-6.5 [facility] Comment on above: Performed By: #### U DINA, LIPID, TSH, BNP, CMP, T7 #### [facility] [address] [place] [address] Dr. Suzie Brooks Neutrophils/100 WBC (Bld) 66.3 % Normal 43.0-75.0 [facility] Comment on above: Performed By: #### U DINA, LIPID, TSH, BNP, CMP, T7 #### [facility] [address] [address] [address] Suzie Brooks Platelet mean volume (Bld) [Entitic vol] 9.6 fL Normal 9.5-13.5 [facility] Comment on above: Performed By: #### U DINA, LIPID, TSH, BNP, CMP, T7 #### [facility] [address] [place] [address] Dr. Suzie Brooks PLT 252 103/ul Normal 150-450 [facility] Comment on above: Performed By: #### U DINA, LIPID, TSH, BNP, CMP, T7 #### [facility] [address] [address] [address] Suzie Brooks RBC 5.37 106/ul Normal 4.70-6.10 [facility] Comment on above: Performed By: #### U DINA, LIPID, TSH, BNP, CMP, T7 #### [facility] [address] [address] [address] Suzie Brooks WBC 11.2 103/ul Critically high 4.0-11.0 [facility] Comment on above: Performed By: #### U DINA, LIPID, TSH, BNP, CMP, T7 #### [facility] [address] [place] [address] Dr. Suzie Brooks Covid-19 PCR ([facility])on 10-09 SARS-CoV-2 (COVID-19) RNA SUKHJINDER+probe Ql (Unsp spec) Not detected Normal NOT DETECTED [facility] Comment on above: Result Comment: This test is not yet approved or cleared by the [place] FDA. When there are no FDA-approved or cleared tests available, and other criteria are met, FDA can make tests available under an emergency access mechanism called an Emergency Use Authorization (EUA). The EUA for this test is supported by the [place] of Health and Human Service's (HHS's) declaration [...] DINA, LIPID, TSH, BNP, CMP, T7 #### [facility] [address] [address] [address] Suzie Brooks PROF CHEM 8 (BAS METB)on Anion gap [Moles/Vol] 7.7 mmol/L Normal [facility] Comment on above: Performed By: #### C VDTBH #### [facility] [address] [place] [address] Dr. Suzie Brooks Calcium [Mass/Vol] 8.6 mg/dL Normal 8.5-10.1 [facility] Comment on above: Performed By: #### C VDTBH #### [facility] [address] [place] [address] Dr. Suzie Brooks Chloride [Moles/Vol] 104 mmol/L Normal 98-107 [facility] Comment on above: Performed By: #### C VDTBH #### [facility] [address] [address] [address] Suzie Brooks CO2 [Moles/Vol] 31.8 mmol/L Critically high 22.0-30.0 [facility] Comment on above: Performed By: #### C VDTBH #### [facility] [address] [place] [address] Dr. Suzie Brooks Creatinine [Mass/Vol] 0.99 mg/dL Normal 0.66-1.25 [facility] Comment on above: Performed By: #### C VDTBH #### [facility] [address] [place] [address] Dr. Suzie Brooks EGFR-AF CITIZ[place] OF [place] >60 Normal >=60 [facility] Comment on above: Performed By: #### C VDTBH #### [facility] [address] [place] [address] Dr. Suzie Brooks EGFR-NON AF CITIZ[place] OF [place] >60 Normal >=60 [facility] Comment on above: Performed By: #### C VDTBH #### [facility] [address] [place] [address] Dr. Suzie Brooks Glucose [Mass/Vol] 94 mg/dL Normal 74-106 [facility] Comment on above: Performed By: #### C VDTBH #### [facility] [address] [place] [address] Dr. Suzie Brooks Potassium [Moles/Vol] 4.5 mmol/L Normal 3.4-5.0 [facility] Comment on above: Performed By: #### C VDTBH #### [facility] [address] [place] [address] Dr. Suzie Brooks Sodium [Moles/Vol] 139 mmol/L Normal 137-145 [facility] Comment on above: Performed By: #### C VDTBH #### [facility] [address] [place] [address] Dr. Suzie Brooks Urea nitrogen [Mass/Vol] 12.0 mg/dL Normal 7.0-18.0 [facility] Comment on above: Performed By: #### C VDTBH #### [facility] [address] [place] [address] Dr. Suzie Brooks Urea nitrogen/Creatinine [Mass ratio] 12.1 mg/mg Normal [facility] Comment on above: Performed By: #### C VDTBH #### [facility] [address] [place] [address] Dr. Suzie Brooks PROTIMEon 10-26-2021 INR Coag (PPP) [Relative time] 0.99 {INR} Normal [facility] Comment on above: Performed By: #### C VDTBH #### [facility] [address] [place] [address] Dr. Suzie Brooks INR GUIDELINES SEE BELOW Normal [facility] Comment on above: Result Comment: TOMMY RED INR: 2.0 - 3.0 CONDITIONS NOT LISTED BELOW 2.5 - 3.5 FOR PROSTHETIC HEART VALVE REPLACEMENT 2.5 - 3.5 RECURRENT THROMBOSIS Performed By: #### C VDTBH #### [facility] [address] [place] [address] Dr. Suzie Brooks PT Coag (PPP) [Time] 10.7 s Normal 9.0-11.6 [facility] Comment on above: Performed By: #### C VDTBH #### [facility] [address] [place] [address] Dr. Suzie Brooks PTTon 10-26-2021 aPTT Coag (Bld) [Time] 26.4 s Normal 22.3-36.2 [facility] Comment on above: Performed By: #### C VDTBH #### [facility] [address] [place] [address] Dr. Suzie Brooks XR KUB 1 VIEWon [...] by: RAFAEL GRAVES Date: 2021-10-17 13:26 Normal [facility] Vital Signs Date Time Vital Sign Value Performing Clinician Dario mcdonough 04-16-2024 11:38-0400 Blood Pressure Location Micki Xeneta [facility] 04-16-2024 11:38-0400 Diastolic blood pressure 75 mm[Hg] Micki Xeneta [facility] 04-16-2024 11:38-0400 Heart rate 96 /min Micki Xeneta [facility] 04-16-2024 11:38-0400 Respiratory rate 18 /min Micki ZENG [facility] 04-16-2024 11:38-0400 Systolic blood pressure 131 mm[Hg] Micki Xeneta [facility] 04-01-2024 15:04-0400 Body height 182.9 cm [employer] Work Phone: [facility] 04-01-2024 15:04-0400 Body mass index (BMI) [Ratio] 39.33 kg/m2 [employer] DO Work Phone: [facility] 04-01-2024 15:04-0400 Body weight 131.54 kg [employer] Work Phone: [facility] 04-01-2024 15:04-0400 Diastolic blood pressure 92 mm[Hg] [employer] [facility] Work Phone: [facility] 04-01-2024 15:04-0400 Systolic blood pressure 140 mm[Hg] [employer] DO Work Phone: [facility] 04-11-2023 11:55-0400 Blood Pressure Location Micki ZENG [facility] 04-11-2023 11:55-0400 Diastolic blood pressure 76 mm[Hg] Micki ZENG [facility] 04-11-2023 11:55-0400 Heart rate 80 /min Micki ZENG [facility] 04-11-2023 11:55-0400 Respiratory rate 16 /min Micki ZENG [facility] [facility] 04-11-2023 11:55-0400 Systolic blood pressure 134 mm[Hg] Micki ZENG [facility] 02-25-2022 14:20-0400 Blood Pressure Location Micki ZENG [facility] 02-25-2022 14:20-0400 Diastolic blood pressure 100 mm[Hg] Micki ZENG [facility] 02-25-2022 14:20-0400 Heart rate 86 /min Micki ZENG [facility] 02-25-2022 14:20-0400 Respiratory rate 16 /min Micki ZENG [facility] 02-25-2022 14:20-0400 Systolic blood pressure 155 mm[Hg] Micki ZENG [facility] Encounters Encounter Date Encounter Type Care Provider Facility Start: 04-15-2025 ambulatory Micki Muhammadi ty:[facility] Start: 04-16-2024 End: 04-16-2024 ambulatory Micki ZENG Facility: [facility] Start: 04-16-2024 End: 04-16-2024 Patient encounter procedure Micki ZENG [facility] Start: 04-01-2024 End: 04-01-2024 Office outpatient visit 15 minutes Christopher Brennon DO Work Phone: [facility] Comment on above: Essential tremor (Pr imary Dx); Essential hypertension (CMS/HCC) Start: 04-01-2024 End: 04-01-2024 ambulatory TRACEY WILLETT Not Available Start: 04-01-2024 End: 04-01-2024 Bamboo flowsheet Uliceser Brennon DO Work Phone: [facility] Start: 04-01-2024 End: 04-01-2024 Bamboo flowsheet Uliceser Brennon DO Work Phone: [facility] Start: 04-11-2023 End: 04-11-2023 Patient encounter procedure Micki ZENG [facility] Start: 08-14-[address] MARIELLE LERMA Facility :[facility]1 Start: 08-13-[address] MARIELLE LERMA Facility :[facility] Start: 07-26-2022 End: 07-27-[address] MARIELLE LERMA Facility:[facility]1 Start: 07-18-2022 End: 07-19-[address] MICKI ZENG Facility:[facility]1 Start: 05-15-2022 End: 05-16-[address] MARIELLE LERMA Facility:[facility]1 Start: 02-25-2022 End: 02-25-2022 Patient encounter procedure Micki ZENG [facility] Start: 02-18-2022 End: 02-18-[address] [...] Marielle Lerma Work Phone: [facility] Start: 11-12-2021 End: 11-13-[address] MICKI ZENG Facility:[facility]1 Start: 11-06-2021 End: 11-07-[address] MARIELLE LERMA Facility:[facility]1 Start: 11-05-2021 End: 11-05-[address] MARIELEL LERMA Facility:[facility]1 Start: 11-01-2021 End: 11-01-[address] MICKI ZENG Facility:[facility]1 Start: 10-31-2021 Encounter for preprocedural cardiovascular examination DR MICKI ZENG [facility] Start: 10-30-[address] MICKI ZENG [facility] ity:H1 Start: 10-26-2021 End: 10-27-[address] MICKI ZENG Facility:H1 Start: 10-26-2021 End: 10-27-2021 Encounter for preprocedural cardiovascular examination DR MICKI ZENG Facility:[facility]1 Start: 10-17-2021 End: 10-18-[address] MICKI ZENG Facility:[facility]1 Procedures Date Procedure Procedure Detail Performing Clinician Start: 05-15-[address] JHONATAN ZENG Comment on above: Performed By: #### U DINA, LIPID, TSH, BNP, CMP, T7 #### [facility] [address] [place] [address] Dr. Suzie Brooks Start: 11-21-2021 Cystoscopy Micki VINCENT Start: 11-06-2021 Cystoscopy Micki VINCENT Start: 11-08-2013 Colonoscopy Clarence Willett DO Work Phone: Start: 11-08-2013 Colonoscopy Micki VINCENT Comment on above: normal Arthroplasty of knee Mikci ZENG Comment on above: right Arthroscopic knee [...] Comment on above: basal cell CA- LLE Plan of Treatment Date Care Activity Detail Author Start: 04-18-2025 End: 04-18-2025 Patient encounter procedure 04/18/2025 2:00 PM EDT Office Visit [facility] [place] [phone] Tracey Willett DO [address] [place] [address] [facility] Start: 04-11-2024 Influenza vaccination Influenza Vacc ine (#1) [facility] Start: 04-01-2024 End: 04-01-2024 Patient encounter procedure 04/01/2024 3:00 PM EDT Office Visit [facility] [address] [place] [phone] BrennonTracey washington, DO [address] [place] [address] [facility] Comment on above: Arrived Start: 11-09-2023 Screening for malign ant neoplasm of colon [facility] Start: 05-22-2018 Pneumococcal Vaccine : 65+ Years (2 of 2 - PPSV23 or PCV20) Pneumococcal Vaccine: 65+ Years (2 of 2 - PPSV23 or PCV20) [facility] Start: 1950 Screening for malign ant neoplasm of colon [facility] Immunizations Immunization Date Immunization Notes Care Provider Fa cility 05-31-2022 SARS-CoV-2 (COVID-19 ) [id number] Micki ZENG [facility] Comment on above: Result Comment: 2022: [id number] 12-22-2021 SARS-CoV-2 (COVID-19 ) mRNA-1273 vaccine Micki ZENG [facility] 06-05-2021 SARS-CoV-2 (COVID-19 ) mRNA-1273 vaccine Micki ZENG [facility] 05-29-2021 influenza virus vaccine, unspecified formulation Micki EZNG [facility] 05-15-2021 influenza virus vaccine, unspecified formulation Micki ZENG [facility] 11-09-2020 SARS-CoV-2 (COVID-19 ) mRNA-1273 vaccine Micki ZENG [facility] 11-01-2020 SARS-CoV-2 (COVID-19 ) mRNA-1273 vaccine Micki ZENG [facility] 10-09-2020 SARS-CoV-2 (COVID-19 ) mRNA-1273 vaccine Micki Xeneta [facility] 10-05-2020 SARS-CoV-2 (COVID-19 ) mRNA-1273 vaccine Micki Xeneta [facility] 05-17-2020 influenza virus vaccine, unspecified formulation Micki Xeneta [facility] 06-24-2019 tetanus toxoid, redu roberto carlos diphtheria toxoid, and acellular pertussis vaccine, adsorbed Micki ZENG [facility] 05-25-2019 influenza virus vaccine, unspecified formulation Micki ZENG [facility] 05-22-2017 influenza virus vaccine, unspecified formulation Micki ZENG [facility] 05-22-2017 pneumococcal conjuga te vaccine, 13 valent Micki ZENG [facility] 05-30-2016 influenza, unspecifi ed formulation Micki ZENG [facility] 11-01-2013 zoster vaccine, live Micki ZENG [facility] 12-18-2005 hepatitis A vaccine, adult dosage Micki Xeneta [facility] 10-18-2005 hepatitis B vaccine, pediatric or pediatric/adolescent dosage Micki ZENG [facility] 10-18-2005 tetanus and diphther ia toxoids, adsorbed, preservative free, for adult use (2 Lf of tetanus toxoid and 2 Lf of diphtheria toxoid) Mickikimberly ZENG [facility] 07-26-2005 hepatitis B vaccine, pediatric or pediatric/adolescent dosage Mickikimberly ZENG [facility] 06-20-2005 hepatitis A vaccine, adult dosage Micki ZENG [facility] 06-20-2005 hepatitis B vaccine, pediatric or pediatric/adolescent dosage Micki ZENG [facility] Payers Date Payer Category Payer Private Health Insurance CIGLAT[employer]YA Lianet IGNA MEDICARE SUPPLEMENT [id number] 2024-Present [address] [address] [place] [address] Supplement [id number] 2017 Medicare MEDICARE MEDICAR E RAILROAD [id number] 2017-Present NICA BANNER RAILROAD MEDICARE [address] [address] [place] [address] Medicare [id number] 1959 Medicare [id number] 1959 Private Health Insurance [id number] 1950 Unknown [id number] 2.16.840.1.449587.3.579 .2.593 1950 Unknown [id number] 2.16.840.1.370974.3.579 .2.593 1952 Unknown [id number] 2.16.840.1.451700.3.579 .2.593 1952 Unknown [id number] 2.16.840.1.124328.3.579 .2.593 1952 Unknown [id number] 2.16.840.1.274338.3.579 .2.593 1952 Unknown [id number] 2.16.840.1.641300.3.579 .2.593 1952 Unknown [id number] 2.16.840.1.682194.3.579 .2.593 1952 Unknown [id number] 2.16.840.1.082923.3.579 .2.593 1952 Unknown [id number] 2.16.840.1.666979.3.579 .2.593 1952 Unknown [id number] 2.16.840.1.536714.3.579 .2.593 1952 Unknown [id number] 2.16.840.1.278595.3.579 .2.593 1952 Unknown [id number] 2.16.840.1.303329.3.579 .2.593 1952 Unknown [id number] 2.16.840.1.812282.3.579 .2.593 1952 Unknown [id number] 2.16.840.1.225688.3.579 .2.593 1952 Unknown [id number] 2.16.840.1.492392.3.579 .2.593 1952 Unknown [id number] 2.16.840.1.452521.3.579 .2.593 1952 Unknown [id number] 2.16.840.1.942064.3.579 .2.593 1952 Unknown [id number] 2.16.840.1.498377.3.579 .2.593 1952 Unknown [id number] 2.16.840.1.728051.3.579 .2.1259 1952 Unknown [id number] 2.16.840.1.216731.3.579 .2.727 1950 Unknown [id number] 2.16.840.1.995546.3.579 .2.727 Self-pay Self Pay [id number] Social History Date Type Detail Facility Start: 10-19-2019 End: 04-16-2024 Tobacco smoking status MDIS Ex-smoker (finding) [facility] Start: 1950 Sex Assigned At Male [facility] Tobacco smoking status Never [facility] Start: 03-28-2024 Sex Assigned At [facility] Start: 03-28-2024 Tobacco smoking stat us MDIS Never smoked tobacco [facility] Start: 03-28-2024 Alcoholic beverage intake Current drinker of alcohol (finding) [facility] Start: 03-28-2024 History of Social function [facility] How often to you hav e a drink containing alcohol? 2-4 times a month [facility] How many standard dr inks containing alcohol do you have on a typical day? 1 or 2 [facility] How often do you hav e 6 or more drinks on 1 occasion? Never [facility] Start: 1950 Sex assigned at Not on file [facility] Functional Status Date Assessment Result Facility 04-16-2024 Functional Status N/A [facility] 04-11-2023 Functional Status N/A [facility] 02-25-2022 Functional Status N/A [facility] Clinical Notes 02-25-2022 to 04-16-2024 Tracey Willett - 04/01/2024 3:00 PM EDT Note Date & Type Note Facility 04-16-2024 Hospital Discharg e instructions Patient Education 04/16/2024 12:25:38 Kidney Stones, Vucy-sv-Lwru Kidney Stones Kidney stones are rock-like masses [...] Follow these instructions at home: Medicines Take wslf-stt-abwgxhs and prescription medicines only as told by [...] provider. Document Revised: 03/21/2023 Document Reviewed: 03/21/2023 [employer] (V[employer]) Patient Education 2023 Network [employer]. Follow Up Care 04/11/2023 12:50:53 With:THOR BATISTA, Micki Cedeño, URL Address: [facility] [address], [place] [phone] When: Unknown Comments:1 yr w/ ISIDRO [facility] 04-16-2024 Note Patient Education Urology Kidney Stones [...] these instructions at home: Medicines ? Take jgpr-oav-jkdxrrt and prescription medicines only as told by [...] provider. Document Revised: 03/21/2023 Document Reviewed: 03/21/2023 [employer] (V3D) Patient Education ? 2023 Network [employer]. [facility] 04-01-2024 History of Presen t illness Narrative Images from the original note were not included. Chief complaint: Tremor Subjective Rizwan Aparicio, 73 y.o., male HPI Patient presents today for f/u to tremors. He is currently under tx for pneumonia, does not know what med's he is taking for this. Reports that tremors in bilat hands has improved since increase of Primidone. Denies trouble with speech, falls or trouble with walking. Denies any other concerns. Review of Systems Constitutional: Negative for appetite change, fatigue and fever. Respiratory: Negative for cough, shortness of breath and wheezing. Cardiovascular: Negative for chest pain, palpitations and leg swelling. Gastrointestinal: Negative for abdominal pain, constipation, diarrhea and nausea. Musculoskeletal: Negative for arthralgias, gait problem and myalgias. Neurological: Positive for tremors. Negative for dizziness, numbness and headaches. Past Medical History: Diagnosis Date Essential tremor High cholesterol (CMS/HCC) Hyperlipidemia (CMS/HCC) Hypertension (CMS/HCC) Kidney stone Tremor Past Surgical History: Procedure Laterality Date COSMETIC SURGERY 09/2019,10/2019 HERNIA REPAIR 02/02/2018 NOSE SURGERY 08/2019 Family History Problem Relation Name Age of Onset Aneurysm Other Cancer Other Dementia Other Diabetes Other Heart disease Other Hypertension Other Social History Tobacco Use Smoking status: Never Smokeless tobacco: Not on file Substance Use Topics Alcohol use: Yes Allergies: Patient has no known allergies. Vitals: 04/01/24 1504 BP: (!) 156/108 Body mass index is 39.33 kg/m . weight: 290 lb Neurologic exam: Mental status: Awake, alert to person, place and time. Recent and remote memory are intact. Language is fluent without aphasia. Attention and concentration are normal. Fund of knowledge is appropriate for level of education. Cranial nerves: CN II: Visual acuity is normal. Visual arrington full to confrontation. CN III, IV, : pupils equal round and reactive to light. Extraocular movements intact. No ptosis present. CN V: Facial sensation is normal. CN VII: Full and symmetric facial movement. CN VIII: Hearing is normal to finger rub bilaterally: CN IX and X: Palate elevates symmetrically. CN XI: Shoulder shrug is normal bilaterally. CN XII: Tongue is midline without atrophy or fasciculation. Motor: Strength is 5/5 throughout. Bulk is normal. Tremor in the bilateral upper extremities. No bradykinesia. No rigidity. Sensory: Sensation is intact to light touch throughout Four extremities. Reflexes: Deep tendon reflexes are 1+ and symmetric throughout. Coordination: Cphqvy-mg-xate testing and rapid alternating movements are normal Gait: Normal Review and summary of old records: MRI of the brain at [place] 03/10/18: Mild age-related atrophy. No acute findings noted Assessment/Plan Diagnoses and all orders for this visit: Essential tremor It is my impression that the patient has tremor. I believe this to be essential tremor. No parkinsonian features are evolving at this time. Is slightly worse today as the patient is on medication for an active pneumonia. In general, he states the symptoms are substantially better. MRI was unremarkable for alternative causes. Plan: Continue primidone 50 mg p.o. b.I.d. we again went over side effects and the patient is okay with continuation of treatment. Essential hypertension (CMS/HCC) Patient does have elevated blood pressure. This is likely a result of secondary treatment to pneumonia. Additionally patient was short of breath when he walked in from the pneumonia. I did ask him to follow this and the pneumonia with his primary care team. Plan: Follow up with primary care Pt has been fully educated on their diagnosis, lab results, treatment options, follow up plan, and return instructions documented in this encounter [facility] 04-11-2023 Hospital Discharg e instructions Patient Education [...] include: ?8 oz (237 mL) of milk, ufrgcyg-tbgselscnlvx-piimh milk, and calcium-fortifiedfruit juice. Calcium-fortified means that [...] ?Spinach (cooked), rhubarb, beets, sweet potatoes, and Niuean chard. ?Peanuts. ?Potato chips, nepalese fries, and baked potatoes with skin on. ?Nuts and nut products. ?Chocolate. If you regularly take a diuretic medicine, make sure to eat at least 1 or 2 servings of fruits or vegetables that are high in potassium each day. These include: ?Avocado. ?Banana. ?[place], prune, carrot, or tomato juice. ?Baked potato. [...] magnesium, fish oil, or vitamin B6. Take zity-wkx-litpnyh and prescription medicines only as told by [...] Casseroles. Pizza. Lasagna. Frozen meals. Potato chips. [place] Timorese fries. The items listed above may not [...] provider. Document Revised: 04/08/2022 Document Reviewed: 04/08/2022 [employer] (V3[employer]) Patient Education 2022 [employer]. Follow Up Care 08/19/2022 10:39:03 With:THOR BATISTA, Micki Cedeño, URL Address: [facility] [address] [place] [address]- When:Within 1 Year(s) [facility] 02-25-2022 Hospital Discharg e instructions Patient Education [...] 07/28/2006 Document Revised: 04/16/2019 Document Reviewed: 06/27/2017 [employer] (V3D) Patient Education 2020 Network [employer]. 02/25/2022 15:28:39 Kidney Stones, Weku-oa-Kjpr Kidney Stones Kidney stones are rock-like masses [...] Follow these instructions at home: Medicines Take rgyy-cbx-hdknvry and prescription medicines only as told by [...] 01/13/2009 Document Revised: 12/14/2019 Document Reviewed: 12/14/2019 [employer] (V3D) Patient Education 2019 [employer]. Follow Up Care 11/21/2021 12:48:10 With:Micki ZENG MD, URL Address: [facility] [address], [place] [address]- [phone] When:Within 4 Month(s) Comments:4 mo fu with IVP [facility] 02-25-2022 Evaluation + Plan note Diagnostic Tests PendingPSA Total 02/25/22Creatinine 02/25/22 [facility] Evaluation + Plan note Future Appointments Appointment Date:04/16/2024 11:00:00 AM Scheduled Provider:Micki ZENG MD Location:[facility] Appointment Type:URO Office Visit [facility] Evaluation + Plan note Future Appointments Appointment Date:04/15/2025 11:00:00 AM Scheduled Provider:Micki ZENG MD Location:[facility] Appointment Type:URO Office Visit [facility] Evaluation note No assessment inform ation available [facility] Work Phone: Evaluation note Diagnosis Essential tremor- Primary Essential hypertension (CMS/HCC) Unspecified essential hypertension [facility] N[facility] No data available for this section [facility] progress note No data available for this section [facility] Chief Complaint and Reason for Visit Chief Complaint Left Kidney Stone [facility] Right Stent [place]ac[place] Family History Relationship Condition Age at Onset Recorded Date/T miranda father Malignant neoplasm of prostate Unknown Myocardial infarction Unknown Not Specified Malignant neoplasm of breast Unknown Celiac disease Unknown Advance Directives Advance Directive Response Recorded Date/ Time Advance Directives No April 2:24pm Summary Purpose Additional Source Comments Care Teams (unrecognized sec tion and content) Team Status: Inactive Member Role Status Dates Marielle Lerma MD Primary Care Provider Active Micki Zeng MD Attending Provider Active Team Status: Active Member Role Status Dates Marielle Lerma MD Primary Care Provider Active Sausage Inspector Relationship Specialty Start Date End Date Marielle Lerma MD [address] [place] [address] PCP - General Family Medicine 04/01/24 Sausage Inspector Relationship Specialty Start Date End Date Marielle Lerma MD [address] [place] [address] PCP - General Family Medicine 04/01/24 Goals (unrecognized section and content) Goals may be documented in a n alternate section No data available for this section No data available for this section No data available for this section (unrecognized sect ion and content) No Status Records FoundNo Status Records FoundNo Status Records FoundNo Status Records Found INFORMATION SOURCE (unrecogn ized section and content) DATE CREATED AUTHOR 11/22/2021 [facility] DATE CREATED AUTHOR AUTHOR'S ORGANIZ ATION 08/13/2022 [facility] DATE CREATED AUTHOR AUTHOR'S ORGANIZ ATION 04/03/2024 [facility] dic DATE CREATED AUTHOR AUTHOR'S ORGANIZ ATION 04/18/2024 [facility] FOR RECORDS PERTAINING TO PATIENTS WHO [...] BE BASED ON THE PRIMARY CLINICAL RECORDS. [facility] [employer] [facility]. provides no warranty or guarantee of the accuracy or completeness of information in this document.
--- NOTE | 2024-07-30 07:01 | XR_ITS ---
[address] [address] Patient Name: RIZWAN LOCK MRN: [id number] date: 1950 Sex: M Assigned Patient Location: LAB Current Patient Location: LAB Accession/Order Number: [id number] Exam Date: 07/30/2024 07:12 Report Date: 07/30/2024 08:20 At the request of: MARIELLE RAMIREZ Procedure: XR knee KAROLINA 3V EXAMINATION: XR knee KAROLINA 3V HISTORY: Knee Bursitis, Left Knee Osteoarthritis COMPARISON: No relevant comparison available. FINDINGS: RIGHT FINDINGS: BONES: No acute fracture or dislocation. Medial compartment hemiarthroplasty with no mechanical failure. Moderate joint space narrowing of the lateral compartment. Moderate osteophytes arthropathy SOFT TISSUES: Negative. No visible soft tissue swelling. OTHER: Small joint effusion. Vascular calcifications LEFT FINDINGS: BONES: No acute fracture or dislocation. Moderate to severe joint osteoarthropathy with joint space narrowing marginal osteophyte formation. Moderate narrowing of the medial joint space SOFT TISSUES: Negative. No visible soft tissue swelling. OTHER: Vascular calcifications XR/XR knee KAROLINA 3V IMPRESSION: RIGHT CONCLUSION: Medial compartment hemiarthroplasty with moderate osteoarthritis LEFT CONCLUSION: Moderate to severe tricompartmental osteoarthritis Electronically authenticated by: RAFAEL GRAVES Date: 07/30/2024 08:20
[2024-07-30 07:45] LABS: Hematocrit 44.4 % (42.0-54.0); Hemoglobin 15.6 g/dL (14.0-18.0); Mean Corpuscular HGB Conc 35.1 g/dL (29.9-35.2); Mean Corpuscular Hemoglobin 30.8 pg (25.9-34.0); Mean Corpuscular Volume 87.7 fL (80.0-94.0); Mean Platelet Volume 8.6 fL (9.5-13.5); Platelet Count 457 10^3/uL (150-450); Red Blood Count 5.06 10^6/uL (4.70-6.10); Red Cell Distribution Width 13.8 % (11.0-15.0); White Blood Count 25.1 10^3/uL (4.0-11.0)
[2024-07-30 08:11] LABS: Atypical Lymphocytes Abs Man 0.75; Lymphocytes Absolute Manual 2.51 10^3/uL (1.20-3.80); Segmented Neut Absolute Manual 20.33 10^3/uL (1.4-6.5)
[2024-07-30 09:07] LABS: Estimated Average Glucose 114 mg/dL; Glycohemoglobin A1C 5.6 % (4.5-6.2)
[2024-07-30 09:11] LABS: Alanine Aminotransferase 36 U/L (16-63); Albumin Globulin Ratio 0.9; Albumin Level 3.2 g/dL (3.4-5.0); Alkaline Phosphatase 60 U/L (46-116); Anion Gap 16.3; Aspartate Amino Transferase 19 U/L (15-37); BUN Creatinine Ratio 23.1; Bilirubin Total 0.6 mg/dL (0.2-1.0); Calcium 8.7 mg/dL (8.5-10.1); Carbon Dioxide 25.6 mmol/L (21.0-32.0); Chloride 102 mmol/L (98-107); Cholesterol 260 mg/dL (<=200); Estimated GFR (African America >60 (>=60 mL/min/1.73m^2); Estimated GFR (Non-African Ame >60 (>=60 mL/min/1.73m^2); Free T3 2.28 pg/mL (2.18-3.98); Globulin 3.4 g/dL; Glucose 119 mg/dL (74-106); HDL Cholesterol 52 mg/dL (40-60); Potassium 3.9 mmol/L (3.5-5.1); Sodium 140 mmol/L (136-145); Thyroid Stimulating Hormone 1.543 uIU/mL (0.358-3.740); Total Protein 6.6 g/dL (6.4-8.2); Triglycerides 115 mg/dL (<=150); Uric Acid 5.1 mg/dL (3.5-7.2)
[2024-07-30 09:27] LABS: Prostate Specific Antigen Scrn 0.82 ng/mL (<=4.00)
[2024-08-02 13:07] LABS: Insulin 39.1 uIU/mL (2.6-24.9)
== END 2024-07-30 06:55 | disposition home or self-care (01) ==
LOC: LAB 06:56
PROVIDERS: PCP Family Medicine; Visit Provider Family Medicine
DX: I11.0 Hypertensive heart disease with heart failure (principal); G25.0 Essential tremor; M70.50 Other bursitis of knee, unspecified knee; E78.5 Hyperlipidemia, unspecified; M17.12 Unilateral primary osteoarthritis, left knee; J44.9 Chronic obstructive pulmonary disease, unspecified; R73.09 Other abnormal glucose; I50.30 Unspecified diastolic (congestive) heart failure
CPT/HCPCS: 36415; 73562; 80053; 80061; 83036; 83525; 83880; 84436; 84443; 84481; 84550; 85007; 85027; G0103

== ENCOUNTER 2024-08-02 15:16 | Outpatient (OUT) | payer MEDICARE, OTHER, SELFPAY ==
[2024-08-02 15:50] LABS: Hematocrit 46.9 % (42.0-54.0); Hemoglobin 16.2 g/dL (14.0-18.0); Mean Corpuscular HGB Conc 34.5 g/dL (29.9-35.2); Mean Corpuscular Hemoglobin 30.6 pg (25.9-34.0); Mean Corpuscular Volume 88.7 fL (80.0-94.0); Mean Platelet Volume 8.7 fL (9.5-13.5); Platelet Count 386 10^3/uL (150-450); Red Blood Count 5.29 10^6/uL (4.70-6.10); Red Cell Distribution Width 13.6 % (11.0-15.0); White Blood Count 22.4 10^3/uL (4.0-11.0)
[2024-08-02 16:18] LABS: Alanine Aminotransferase 109 U/L (16-63); Albumin Level 3.3 g/dL (3.4-5.0); Alkaline Phosphatase 65 U/L (46-116); Anion Gap 10.9; Aspartate Amino Transferase 53 U/L (15-37); BUN Creatinine Ratio 21.2; Bilirubin Total 0.7 mg/dL (0.2-1.0); Calcium 9.2 mg/dL (8.5-10.1); Carbon Dioxide 29.7 mmol/L (21.0-32.0); Chloride 99 mmol/L (98-107); Estimated GFR (African America >60 (>=60 mL/min/1.73m^2); Estimated GFR (Non-African Ame >60 (>=60 mL/min/1.73m^2); Free T3 3.39 pg/mL (2.18-3.98); Globulin 3.4 g/dL; Glucose 104 mg/dL (74-106); Potassium 3.6 mmol/L (3.5-5.1); Sodium 136 mmol/L (136-145); Thyroid Stimulating Hormone 3.988 uIU/mL (0.358-3.740); Total Protein 6.7 g/dL (6.4-8.2)
[2024-08-02 16:20] LABS: Eosinophils Absolute Manual 0.22 10^3/uL (0.00-0.70); Lymphocytes Absolute Manual 4.92 10^3/uL (1.20-3.80); Monocytes Absolute Manual 1.12 10^3/uL (0.30-0.80); Segmented Neut Absolute Manual 16.12 10^3/uL (1.4-6.5)
== END 2024-08-02 15:17 | disposition home or self-care (01) ==
LOC: LAB 15:17
PROVIDERS: PCP Family Medicine; Visit Provider Family Medicine
DX: M70.50 Other bursitis of knee, unspecified knee (principal); J18.9 Pneumonia, unspecified organism; R42 Dizziness and giddiness; J01.90 Acute sinusitis, unspecified
CPT/HCPCS: 36415; 80053; 84436; 84443; 84481; 85007; 85027

== ENCOUNTER 2024-08-02 15:57 | Inpatient (IN) | payer MEDICARE, OTHER, SELFPAY ==
[2024-08-02] VITALS (18 sets, daily range): BP systolic 135–157; BP diastolic 78–94; PULSE 76–110; TEMP 36.8–37.1; O2SAT 93–98; BMI 36.6; BMI 37.5
--- NOTE | 2024-08-02 16:39 | XR_ITS ---
The [address] [address] Patient Name: RIZWAN LOCK MRN: [id number] date: 1950 Sex: M Assigned Patient Location: ER Current Patient Location: [place] Accession/Order Number: [id number] Exam Date: 08/02/2024 16:45 Report Date: 08/03/2024 14:12 At the request of: YOVANI VELASCO Procedure: XR chest 1V EXAM: XR chest 1V HISTORY: sob COMPARISON: 04/15/2024. TECHNIQUE: AP chest x-ray. FINDINGS: Cardiac size appears unchanged. Trachea is midline. No mediastinal widening. Similar asymmetric elevation of the right hemidiaphragm. Mild perihilar peribronchial thickening is noted. No interval consolidative change. No pneumothorax or effusion. Osseous structures appear preserved. XR/XR chest 1V IMPRESSION: Reactive or inflammatory airways disease. No focal pneumonia. Electronically authenticated by: PURA HERNÁNDEZ Date: 08/03/2024 14:12
--- NOTE | 2024-08-02 16:39 | ECG_ITS ---
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
--- NOTE | 2024-08-02 16:42 | ED_ITS ---
HPI HPI - General Adult General Chief complaint: Shortness of Breath/Dyspnea Stated complaint: shortness of breath Time Seen by Provider: 08/02/24 16:26 Source: patient Mode of arrival: Wheelchair Limitations: no limitations History of Present Illness HPI narrative: Patient is a 74-year-old male who is presenting to the ER with chief complaint of shortness of breath, cough, congestion, possible panic/anxiety and not feeling well while he was sitting in the lobby waiting for an outpatient chest x-ray to be done. Patient stated that he just finished treatment for COVID recently, he was on Paxil bid. Patient's PCP is Dr. Ramirez. Patient went to see PCP today for follow-up visit. Patient was having some cough and congestion in the office, he was sent over for outpatient lab work and chest x-ray. While patient was waiting for the chest x-ray he started having coughing spell, becoming more shortness of breath, hyperventilating, and patient then came to the ER for evaluation. Patient is at bedside. Patient stated he had pneumonia several twice 10 to 20 years ago, and patient feels like he has pneumonia. Patient feels like he needs possibly admitted to the hospital and he needs antibiotics. Patient has no new swelling to his arms or legs. Patient has chronic skin changes from psoriasis. Patient is at bedside. Patient does not wear any oxygen during the day or at nighttime at home. He does have a history of emphysema COPD. Patient did smoke for over 30 years, but he did quit approximately 20-30 years ago. Patient is collecting clear sputum and a outpat ient sputum cup that Dr. Ramirez had ordered for him. All systems are negative except as noted/marked. All systems reviewed and otherwise negative. Nurses note and vital signs reviewed and patient is not hypoxic. General: The patient appears much distress secondary with increased work of breathing, increased respiratory rate, anxiety, intermittent coughing spells producing clear sputum. Patient is resting uncomfortably on cart. Patient is not toxic, lethargic, or listless Skin: Warm, dry, no pallor noted. There is no rash noted. No petechiae, purpura. Head: Normocephalic, atraumatic; thick neck, no obvious JVD noted. Eye: Normal conjunctiva, no drainage, EOMI. PERRL Ears, Nose, Mouth, and Throat: oral mucosa is dry. Nares patent. Mouth without vesicles. Cardiovascular: Regular Rate and Rhythm, no murmur, gallop, rub Respiratory: Patient is in no distress, no accessory muscle use, lungs are clear to auscultation, no wheezing, rales or rhonchi. Patient has decreased breath sounds on the right compared to left, patient's breath sounds are clear until he has a coughing attack/spell and then here upper respiratory rhonchi, suggestion, wheezing. Patient is also producing audible wheezing himself when he is coughing, it is not resonating throughout his lungs. Back: non-tender, no CVA tenderness bilaterally to percussion. No CT LS midline pain GI: Obese, no tenderness to palpation, no masses appreciated. No rebound, guarding, or rigidity noted. No distention Musculoskeletal: Patient has full range of motion of all of the extremities, no motor, sensory, or focal neurological deficits; 1+ pitting edema bilateral, no unilateral swelling. Neurological: A&O x4, normal speech Psychiatric: Cooperative Related Data Home Medications ?Medication ?Instructions ?Recorded ?Confirmed allopurinol 300 mg tablet 300 mg PO DAILY 08/15/23 08/02/24 hydrochlorothiazide 12.5 mg capsule 12.5 mg PO QDAY 08/15/23 08/02/24 potassium citrate 10 mEq (1,080 10 meq PO BID 08/15/23 08/02/24 mg) tablet,extended release primidone 50 mg tablet 50 mg PO BID 08/15/23 08/02/24 simvastatin 20 mg tablet 20 mg PO .QHS 08/15/23 08/02/24 solifenacin 10 mg tablet 10 mg PO DAILY 08/15/23 08/02/24 tamsulosin 0.4 mg capsule 0.4 mg PO BID 08/15/23 08/02/24 lisinopril 40 mg tablet 40 mg PO .QD 09/02/23 08/02/24 Previous Rx's ?Medication ?Instructions ?Recorded aspirin 81 mg capsule 81 mg PO DAILY #30 caps 08/15/23 fluticasone propionate 50 2 spray intranasal QD #16 grams 09/06/23 mcg/actuation nasal spray,suspension montelukast 10 mg tablet 10 mg PO QHS #30 tabs 09/06/23 fluticasone furoate 200 1 inh inhalation DAILY #1 ea 11/08/23 mcg-vilanterol 25 mcg/dose inhalation powder (Breo Ellipta) levofloxacin 750 mg tablet 750 mg PO DAILY 10 days #10 tabs 11/08/23 prednisone 20 mg tablet 40 mg (2 x 20 mg) PO DAILY 5 days 07/25/24 #10 tabs Allergies Allergy/AdvReac Type Severity Reaction Status Date / Time No Known Drug Allergies Allergy Verified 08/02/24 16:08 Opioid HPI Opioid Management Most Recent Opioid Data: Last Pain Scale 3 11/08/23 06:00 11/08/23 Last Pain Assessment 08/02/24 17:42 Last ORT Total Score 0 08/02/24 17:42 08/02/24 Last ORT Risk Category Low Risk 08/02/24 17:42 08/02/24 PFSH [facility] Medical History (Updated 08/02/24 @ 17:48 by Bry Ricardo MD) Centrilobular emphysema ?J43.2 - Centrilobular emphysema (ICD-10) Obesity ?E66.9 - Obesity, unspecified (ICD-10) History of tobacco abuse ?Z87.891 - Personal history of nicotine dependence (ICD-10) Elevated hemidiaphragm ?J98.6 - Disorders of diaphragm (ICD-10) Acute asthmatic bronchitis ?J45.909 - Unspecified asthma, uncomplicated (ICD-10) Dehydration ?E86.0 - Dehydration (ICD-10) Weakness ?R53.1 - Weakness (ICD-10) Acute dyspnea ?R06.00 - Dyspnea, unspecified (ICD-10) 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 - Broken internal right knee prosthesis, initial encounter (ICD-10) Umbilical hernia ?K42.9 - Umbilical hernia without obstruction or gangrene (ICD-10) Kidney stones ?N20.0 - Calculus of kidney (ICD-10) Hx of skin malignancy ?Z85.828 - Personal history of other malignant neoplasm of skin (ICD-10) Chest pain ?R07.9 - Chest pain, unspecified (ICD-10) Surgical History (Updated 09/02/23 @ 16:17 by Nory Patel) History of cataract surgery ?Z98.49 - Cataract extraction status, unspecified eye (ICD-10) History of renal stent H/O lithotripsy ?Z98.890 - Other specified postprocedural states (ICD-10) Family History (Updated 09/02/23 @ 16:18 by Nory Patel) Mother Family history of cancer Family history of hypertension Father Family history of diabetes mellitus Family history of hypertension Family history of myocardial infarction Social History (Updated 08/02/24 @ 17:39 by Heather Haley) Within the past year, how often did you have a drink containing alcohol: never Score interpretation: A score less than 4 is consistent with normal alcohol consumption. Smoking status: Former smoker Non-prescribed substance use: denies use Previous occupational history: Retired Highest level of school completed/degree received: some college, no degree Are you now , , , , never or living with a partner: In a typical week, how many times do you talk on the telephone with family, friends, or neighbors: 3 or more times per week How often do you get together with friends or relatives: 3 or more times per week How often do you attend mandaen or nondenominational services: never Do you belong to any clubs or organizations such as mandaen groups unions, [employer] or athletic groups, or school groups: no Total score: 2 Score interpretation: A score of greater than or equal to 2 indicates the lowest level of social isolation. Little interest or pleasure in doing things: not at all Feeling down, depressed, or hopeless: not at all Feel stressed/tense/nervous/anxious/difficulty sleeping: not at all Do you think of yourself as: straight/heterosexual Gender Identity: male Exam Constitutional Vital Signs, click to edit/add: Last Vital Signs Temp 98.8 F 08/02/24 16:01 Pulse 105 H 08/02/24 17:10 Resp 20 08/02/24 17:10 BP 139/82 08/02/24 17:01 Pulse Ox 95 08/02/24 17:10 O2 Del Method Room Air 08/02/24 16:51 Course Vital Signs Vital signs: Vital Signs Temperature 98.8 F 08/02/24 16:01 Pulse Rate 76 08/02/24 16:01 Respiratory Rate 28 H 08/02/24 16:01 Blood Pressure 144/84 H 08/02/24 16:01 Pulse Oximetry 97 08/02/24 16:01 Oxygen Delivery Method Room Air 08/02/24 16:01 Temperature 98.8 F 08/02/24 16:01 Pulse Rate 105 H 08/02/24 17:10 Respiratory Rate 20 08/02/24 17:10 Blood Pressure 139/82 08/02/24 17:01 Pulse Oximetry 95 08/02/24 17:10 Oxygen Delivery Method Room Air 08/02/24 16:51 Medical Decision Making MDM Narrative Medical decision making narrative: Patient is having intermittent coughing spells where he is producing clear sputum, but he will have increased respiratory rate, coughing spell, producing clear sputum, which seems to be inducing panic and anxiety and he is hyperventilating. Patient is asking if he should be admitted to the hospital and if he needs antibiotics. I did give patient a DuoNeb breathing treatment and 1 mg of Ativan IV. After I initially saw patient and perform HPI and physical exam, I did call and speak to Dr. RAMIREZ. Dr. Ramirez stated that we could admit patient to the hospital overnight for observation and he will place orders for additional medication and treatments. Patient had outpatient labs that were ordered by Dr. Ramirez. Chest x-ray does not show any acute cardiopulmonary disease, no large effusion, no obvious signs of i nfiltrate. Dr. Ramirez will follow-up on lab test ordered as an outpatient. Dr. Ramriez will admit patient for observation, he will place orders for additional medications and treatments in the ER, he did not want me to order any other medications or treatments for the patient in the ER. Patient and are aware of this ECG Data Attestation: I personally reviewed and interpreted this ECG as follows: (EKG interpretation. Normal sinus rhythm at 90 beats a minute. Normal axis deviation. No acute ST elevation, no acute ectopy. QTc of 391.) Discharge Plan Discharge Chief Complaint: Shortness of Breath/Dyspnea Clinical Impression: Dyspnea, Situational anxiety, COPD exacerbation Patient Disposition: Admitted as Observation Time of Disposition Decision: 17:00 Condition: Fair Discharge Date/Time: 08/02/24 17:27
[2024-08-02] MEDS: LORAZEPAM 2 MG/ML VIAL 1 MG IV (16:49)
[2024-08-02] MEDS: IPRATROPIUM/ALBUTEROL SULFATE 3 ML AMPUL.NEB IH ×2 (16:50→23:27)
--- OUTSIDE RECORDS SUMMARY | 2024-08-02 17:40 | XMS_ITS | CCD ---
Author Organization [facility] Care Team Providers Care Reimbursement Consultant Name Role Phone MD Marielle Lerma Primary Care Provider [phone] MD Micki Zeng Attending Provider Marielle [...] Consulting Unavailable LUTosin .NADEGE Consulting Unavailable NARDINBEHZAD Franlkin Consulting Unavailable ASHLEY, DR PALOMARES Primary Care [...] Unavailable Marielle Lerma MD Primary Care Provider [phone] Allergies Allergy Classification Reported Allergen(s) Allergy Type Date of Onset Reaction(s) Facility (1 source) No Known Medication Allergies; Translations: [No Known Medication Allergies] Propensity to adverse reactions (disorder) [facility] Repository Medications Current Medications Medication [...] by mouth in the morning HYDROcodone-acetami nophen ([place]) 10-325 MG tablet Take 1 tablet by mouth in the morning and 1 tablet before bedtime. 12/29/2023 Active Start: 05-29-2021 take 1 tablet by isa th once daily acetaminophen-hydrocodone 325 mg-5 mg or al tablet 1 tab(s), Oral, Daily pain, Refill(s) 0 Start Date: 05/29/21 Status: Ordered Start: 09-07-2019 End: 10-12-2019 take 1 tablet by mouth every four to six hours Hydrocodone-Acetaminophen ([place]) 5-325 mg tablet Active 1 TAB PO EVERY 4-6 HOURS 40 7 September 28, 2019 1:45pm allopurinol 300 mg oral tablet (6 sources) Xanthine Oxidase Inhibitor Start: 11-27-2023 take 1 tablet by mouth once daily allopurinol 300 mg Tab 300 mg = 1 tab(s), Oral, Daily, # 90 tab(s), Refills(s) 3, Pharmacy: [facility]/pharmacy #[id number], 180, cm, 04/11/23 11:56:00 EDT, Height/Length Dosing, 127, kg, 04/11/23 11:56:00 EDT, Weight Dosing Start Date: 03/02/24 Status: Ordered Start: 03-10-2023 take 1 tablet by isa th once daily allopurinol 300 mg Tab 300 mg = 1 tab(s), Oral, Daily, # 90 tab(s), Refills(s) 3, Pharmacy: [facility]/pharmacy #[id number], 180, cm, 08/19/22 9:50:00 EST, Height/Length Dosing, 136.2, kg, 08/19/22 9:50:00 EST, Weight Dosing Start Date: 03/10/23 Status: Ordered Start: 02-25-2022 allopurinol 30 0 mg Tab 150 mg = 0.5 tab(s), Oral, Daily, # 30 tab(s), Refills(s) 11, Pharmacy: [facility] #[id number], 180, cm, 02/25/22 14:22:00 EDT, Height/Length Dosing, 135, kg, 02/25/22 14:22:00 EDT, Weight Dosing Start Date: 02/25/22 Status: Ordered aspirin 81 mg chewable tablet (4 sources) Platelet Aggregation Inhibitor, Nonsteroidal Anti-inflammatory Drug Start: 04-16-2024 aspirin 81 mg Callie w Tab 162 mg = 2 tab(s), Chewed, BID Start Date: 04/16/24 Status: Ordered Start: 02-10-2019 take 2 tablets by [facility] once daily aspirin 81 mg oral tablet 162 mg = 2 tab(s), Oral, Daily, Refills(s) 0 Start Date: 02/10/19 Status: Ordered Start: 01-02-2018 take 1 tablet by [facility] twice daily Aspirin (Aspir-81) 81 mg Tablet,Delayed [...] Start: 08-19-2022 take 1 capsule by [facility] once daily hydrochlorothiazide 12.5 mg Cap 12.5 mg = 1 cap(s), Oral, Daily, # 90 cap(s), Refills(s) 3, Pharmacy: [facility]/pharmacy #[id number], 180, cm, 08/19/22 9:50:00 EST, Height/Length Dosing, 136.2, kg, 08/19/22 9:50:00 EST, Weight Dosing Start Date: 08/19/22 Status: Ordered Start: 02-25-2022 take 1 capsule by [facility] once daily hydrochlorothiazide 12.5 mg Cap 12.5 mg = 1 cap(s), Oral, Daily, # 30 cap(s), Refills(s) 6, Pharmacy: [facility] #[id number], 180, cm, 02/25/22 14:22:00 EDT, Height/Length [...] 10 mg by mouth at bedtime Active Lysnifrs-Clj-Uv-Lycopen-Lute in (Centrum Silver) 0.4-300-250 mg-mcg-mcg Tablet (1 source) Start: 09-02-2019 take 1 tablet by mouth once daily Ydbpjtww-Wre-Td-Lycopen-Lutein (Centrum Silver) 0.4-300-250 mg-mcg-mcg Tablet Active 1 [...] tab(s), Oral, BID, 60 tab(s), Refill(s) 11, [facility]/pharmacy #[id number], 180, cm, 04/11/23 11:56:00 EDT, [...] BID, # 90 tab(s), Refills(s) 3, Pharmacy: [facility]/pharmacy #[id number], 180, cm, 08/19/22 9:50:00 EST, [...] 30 tab(s), Refills(s) 11, Pharmacy: [facility]/pharmacy #[id number], 180, cm, 02/25/22 14:22:00 EDT, Height/Length Dosing, 135, kg, 02/25/22 14:22:00 EDT, Weight Dosing Start Date: 02/25/22 Status: Ordered tadalafil 20 mg oral tablet (4 sources) Phosphodiesterase 5 Inhibitor Start: 10-23-2021 take 1 tablet by mouth once daily Cialis 20 mg Tab 20 mg = 1 tab(s), Oral, Daily, # 30 tab(s), Refills(s) 6, Pharmacy: [facility]/pharmacy #[id number], 180, cm, 10/22/21 14:56:00 EDT, [...] Start: 10-28-2023 take [address] [facility] twice daily tamsulosin 0.4 mg Cap 0.4 mg = 1 cap(s), Oral, BID, # 180 cap(s), Refills(s) 3, Pharmacy: [facility]/pharmacy #[id number], 180, cm, 04/11/23 11:56:00 EDT, Height/Length Dosing, 127, kg, 04/11/23 11:56:00 EDT, Weight Dosing Start Date: 10/28/23 Status: Ordered Start: 04-11-2023 take 1 capsule by [facility] once daily tamsulosin 0.4 mg Cap 0.4 mg = 1 cap(s), Oral, Daily, # 90 cap(s), Refills(s) 3, Pharmacy: [facility]/pharmacy #[id number], 180, cm, 04/11/23 11:56:00 EDT, [...] Coronary atherosclerosis; Translations: [Atherosclerotic heart disease of [place] coronary artery without angina pectoris] Onset: 11-05-2021 [...] Onset: 08-01-2022 Chronic Other 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) 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 [address] [place] [address]- You Need to Schedule the Following Appointments Follow Up with Micki ZENG MD, URL When: Comments: 1 yr w/ ISIDRO Where: [facility] [address], [place] [address]- [phone] Medications What How Much When Instructions Unchanged [...] of urination (more content not included)... Normal [facility] Ambulatory Visit Summary Ambulatory Visit Summary APARICIOPATRICK [...] [facility] [address] , [place] [address]- [phone] Medications What How Much When Instructions Unchanged [...] your c (more content not included)... Normal [facility] Urology Office/Clinic Noteon 04-16-2024 Urology Office/Clinic Note [...] on 02/18/22. Stone analysis - 70% CaOx [place], 30% uric acid. LUIS 04/01/23 - cortical [...] [facility] [address], [place] [address]- [phone] Additional Instructions: 1 yr w/ KUB Patient Education Kidney Stones, Phse-ew-Mmsh IBrenda, personally scribed for Dr. Zeng on [...] data Proced (more content not included)... Normal [facility] Comment on above: Result Comment: Elec tronically Signed By: Micki ZENG MD\.br\Date and Time Signed: 04/16/24 12:29 EDT\.br\Electronically Co-Signed By: Brenda Lopez\.br\Date and Time Co-Signed: 04/16/24 12:28 EDT CBC AUTO DIFFon 07-27-2022 BASO # 0.1 103/ul Normal 0.0-0.1 [facility] Comment on above: Performed By: #### U DINA, LIPID, TSH, BNP, CMP, T7 #### [facility] [address] [address] [address] Suzie Brooks Basophils/100 WBC (Bld) 0.5 % Normal 0.2-2.0 [facility] Comment on above: Performed By: #### U DINA, LIPID, TSH, BNP, CMP, T7 #### [facility] [address] [address] [address] Suzie Brooks EO # 0.4 103/ul Normal 0.0-0.7 [facility] Comment on above: Performed By: #### U DINA, LIPID, TSH, BNP, CMP, T7 #### [facility] [address] [address] [address] Suzie Brooks Eosinophils/100 WBC (Bld) 3.3 % Normal 0.9-7.0 [facility] Comment on above: Performed By: #### U DINA, LIPID, TSH, BNP, CMP, T7 #### [facility] [address] [address] [address] Suzie Brooks Erythrocyte distribution width (RBC) [Ratio] 14.6 % Normal 11.0-15.0 [facility] Comment on above: Performed By: #### U DINA, LIPID, TSH, BNP, CMP, T7 #### [facility] [address] [place] [address] Dr. Suzie Brooks Hematocrit (Bld) [Volume fraction] 42.0 % Normal 42.0-54.0 [facility] Comment on above: Performed By: #### U DINA, LIPID, TSH, BNP, CMP, T7 #### [facility] [address] [place] [address] Dr. Suzie Brooks Hemoglobin (Bld) [Mass/Vol] 14.1 g/dL Normal 14.0-18.0 [facility] Comment on above: Performed By: #### U DINA, LIPID, TSH, BNP, CMP, T7 #### [facility] [address] [place] [address] Dr. Suzie Brooks IG # 0.03 10e3/ul Normal 0.00-0.03 [facility] Comment on above: Performed By: #### U DINA, LIPID, TSH, BNP, CMP, T7 #### [facility] [address] [place] [address] Dr. Suzie Brooks IG % 0.3 % Normal 0.0-0.5 [facility] Comment on above: Performed By: #### U DINA, LIPID, TSH, BNP, CMP, T7 #### [facility] [address] [place] [address] Dr. Suzie Brooks LYMPH # 3.1 103/ul Normal 1.2-3.8 [facility] Comment on above: Performed By: #### U DIAN, LIPID, TSH, BNP, CMP, T7 #### [facility] [address] [place] [address] Dr. Suzie Brooks Lymphocytes/100 WBC (Bld) 28.2 % Normal 20.5-60.0 [facility] Comment on above: Performed By: #### U DINA, LIPID, TSH, BNP, CMP, T7 #### [facility] [address] [address] [address] Suzie Brooks MANUAL DIFF REQ NO Normal [facility] Comment on above: Performed By: #### U DINA, LIPID, TSH, BNP, CMP, T7 #### [facility] [address] [address] [address] Suzie Brooks MCH (RBC) [Entitic mass] 28.5 pg Normal 25.9-34.0 [facility] Comment on above: Performed By: #### U DINA, LIPID, TSH, BNP, CMP, T7 #### [facility] [address] [place] [address] Dr. Suzie Brooks MCHC (RBC) [Mass/Vol] 33.6 g/dL Normal 29.9-35.2 [facility] Comment on above: Performed By: #### U DINA, LIPID, TSH, BNP, CMP, T7 #### [facility] [address] [place] [address] Dr. Suzie Brooks MCV (RBC) [Entitic vol] 85.0 fL Normal 80.0-94.0 [facility] Comment on above: Performed By: #### U DINA, LIPID, TSH, BNP, CMP, T7 #### [facility] [address] [place] [address] Dr. Suzie Brooks MONO # 0.8 103/ul Normal 0.3-0.8 [facility] Comment on above: Performed By: #### U DINA, LIPID, TSH, BNP, CMP, T7 #### [facility] [address] [place] [address] Dr. Suzie Brooks Monocytes/100 WBC (Bld) 7.2 % Normal 1.7-12.0 [facility] Comment on above: Performed By: #### U DINA, LIPID, TSH, BNP, CMP, T7 #### [facility] [address] [place] [address] Dr. Suzie Brooks NEUT # 6.7 103/ul Critically high 1.4-6.5 [facility] Comment on above: Performed By: #### U DINA, LIPID, TSH, BNP, CMP, T7 #### [facility] [address] [address] [address] Suzie Brooks Neutrophils/100 WBC (Bld) 60.5 % Normal 43.0-75.0 [facility] Comment on above: Performed By: #### U DINA, LIPID, TSH, BNP, CMP, T7 #### [facility] [address] [address] [address] Suzie Brooks Platelet mean volume (Bld) [Entitic vol] 9.6 fL Normal 9.5-13.5 [facility] Comment on above: Performed By: #### U DINA, LIPID, TSH, BNP, CMP, T7 #### [facility] [address] [place] [address] Dr. Suzie Brooks PLT 266 103/ul Normal 150-450 [facility] Comment on above: Performed By: #### U DINA, LIPID, TSH, BNP, CMP, T7 #### [facility] [address] [place] [address] Dr. Suzie Brooks RBC 4.94 106/ul Normal 4.70-6.10 [facility] Comment on above: Performed By: #### U DINA, LIPID, TSH, BNP, CMP, T7 #### [facility] [address] [place] [address] Dr. Suzie Brooks WBC 11.1 103/ul Critically high 4.0-11.0 [facility] Comment on above: Performed By: #### U DINA, LIPID, TSH, BNP, CMP, T7 #### [facility] [address] [place] [address] Dr. Suzie Brooks PROF 14(COMP METB)on 022 Albumin [Mass/Vol] 3.2 g/dL Critically low 3.4-5.0 [facility] Comment on above: Performed By: #### C VDTBH #### [facility] [address] [place] [address] Dr. Suzie Brooks Albumin/Globulin [Mass ratio] 0.9 {ratio} Normal [facility] Comment on above: Performed By: #### C VDTBH #### [facility] [address] [address] [address] Suzie Brooks ALP [Catalytic activity/Vol] 60 U/L Normal 46-116 [facility] Comment on above: Performed By: #### C VDTBH #### [facility] [address] [address] [address] Suzie Brooks ALT [Catalytic activity/Vol] 27 U/L Normal 16-63 [facility] Comment on above: Performed By: #### C VDTBH #### [facility] [address] [address] [address] Suzie Brooks Anion gap [Moles/Vol] 10.4 mmol/L Normal [facility] Comment on above: Performed By: #### C VDTBH #### [facility] [address] [place] [address] Dr. Suzie Brooks AST [Catalytic activity/Vol] 23 U/L Normal 15-37 [facility] Comment on above: Performed By: #### C VDTBH #### [facility] [address] [address] [address] Suzie Brooks Bilirubin [Mass/Vol] 0.4 mg/dL Normal 0.2-1.0 [facility] Comment on above: Performed By: #### C VDTBH #### [facility] [address] [place] [address] Dr. Suzie Brooks Calcium [Mass/Vol] 8.4 mg/dL Critically low 8.5-10.1 [facility] Comment on above: Performed By: #### C VDTBH #### [facility] [address] [place] [address] Dr. Suzie Brooks Chloride [Moles/Vol] 104 mmol/L Normal 98-107 [facility] Comment on above: Performed By: #### C VDTBH #### [facility] [address] [address] [address] Suzie Brooks CO2 [Moles/Vol] 26.1 mmol/L Normal 21.0-32.0 [facility] Comment on above: Performed By: #### C VDTBH #### [facility] [address] [address] [address] Suzie Brooks Creatinine [Mass/Vol] 0.90 mg/dL Normal 0.70-1.30 [facility] Comment on above: Performed By: #### C VDTBH #### [facility] [address] [place] [address] Dr. Suzie Brooks EGFR-AF NAMIBIAN >60 Normal >=60 [facility] Comment on above: Performed By: #### C VDTBH #### [facility] [address] [address] [address] Suzie Brooks EGFR-NON AF NAMIBIAN >60 Normal >=60 [facility] Comment on above: Performed By: #### C VDTBH #### [facility] [address] [place] [address] Dr. Suzie Brooks Globulin (S) [Mass/Vol] 3.4 g/dL Normal [facility] Comment on above: Performed By: #### C VDTBH #### [facility] [address] [place] [address] Dr. Suzie rBooks Glucose [Mass/Vol] 111 mg/dL Critically high 74-106 [facility] Comment on above: Performed By: #### C VDTBH #### [facility] [address] [place] [address] Dr. Suzie Brooks Potassium [Moles/Vol] 3.5 mmol/L Normal 3.5-5.1 [facility] Comment on above: Performed By: #### C VDTBH #### [facility] [address] [place] [address] Dr. Suzie Brooks Protein [Mass/Vol] 6.6 g/dL Normal 6.4-8.2 [facility] Comment on above: Performed By: #### C VDTBH #### [facility] [address] [place] [address] Dr. Suzie Brooks Sodium [Moles/Vol] 137 mmol/L Normal 136-145 [facility] Comment on above: Performed By: #### C VDTBH #### [facility] [address] [place] [address] Dr. Suzie Brooks Urea nitrogen [Mass/Vol] 13.0 mg/dL Normal 7.0-18.0 [facility] Comment on above: Performed By: #### C VDTBH #### [facility] [address] [place] [address] Dr. Suzie Brooks Urea nitrogen/Creatinine [Mass ratio] 14.4 mg/mg Normal [facility] Comment on above: Performed By: #### C VDTBH #### [facility] [address] [place] [address] Dr. Suzie Brooks BNPon 07-26-2022 Natriuretic peptide B (Bld) [Mass/Vol] 118.0 pg/mL Normal <=900.0 [facility] Comment on above: Performed By: #### U DINA, LIPID, TSH, BNP, CMP, T7 #### [facility] [address] [place] [address] Dr. Suzie Brooks CARDIAC MJ 3-6on 2 CK [Catalytic activity/Vol] 240 U/L Normal 39-308 [facility] Comment on above: Performed By: #### U DINA, LIPID, TSH, BNP, CMP, T7 #### [facility] [address] [place] [address] Dr. Suzie Brooks CK.MB [Mass/Vol] 3.43 ng/mL Normal <=3.[address] [facility] Comment on above: Performed By: #### U DINA, LIPID, TSH, BNP, CMP, T7 #### [facility] [address] [place] [address] Dr. Suzie Brooks HSTROP 8.6 pg/mL Normal 4.0-76.1 [facility] Comment on above: Result Comment: CUT- OFF POINTS HAVE BEEN ESTABLISHED BASED ON THE FOURTH UNIVERSAL DEFINITIONS OF MYOCARDIAL INFARCTION. THE UPPER REFERENCE LIMIT (URL) OF TROPONIN, DEFINED THE 99TH PERCENTILE OF cTnI DISTRIBUTION IN A REFERENCE POPULATION, HAS BEEN CONFIRMED THE DECISION THRESHOLD FOR [place] DIAGNOSIS. Performed By: #### U DINA, LIPID, TSH, BNP, CMP, T7 #### [facility] [address] [address] [address] Suzie Brooks CK [Catalytic activity/Vol] 239 U/L Normal 39-308 [facility] Comment on above: Performed By: #### M AG24 #### [facility] [address] [place] [address] Dr. Suzie Brooks CK.MB [Mass/Vol] 2.93 ng/mL Normal <=3.[address] [facility] Comment on above: Performed By: #### M AG24 #### [facility] [address] [place] [address] Dr. Suzie Brooks HSTROP 10.4 pg/mL Normal 4.0-76.1 [facility] Comment on above: Result Comment: CUT- OFF POINTS HAVE BEEN ESTABLISHED BASED ON THE FOURTH UNIVERSAL DEFINITIONS OF MYOCARDIAL INFARCTION. THE UPPER REFERENCE LIMIT (URL) OF TROPONIN, DEFINED THE 99TH PERCENTILE OF cTnI DISTRIBUTION IN A REFERENCE POPULATION, HAS BEEN CONFIRMED THE DECISION THRESHOLD FOR [place] DIAGNOSIS. Performed By: #### M AG24 #### [facility] [address] [place] [address] Dr. Suzie Brooks CARDIAC MJ ADMITon 07-26- 022 CK [Catalytic activity/Vol] 234 U/L Normal 39-308 [facility] Comment on above: Performed By: #### O X24HR #### [facility] [address] [place] [address] Dr. Suzie Brooks CK.MB [Mass/Vol] 3.37 ng/mL Normal <=3.[address] [facility] Comment on above: Performed By: #### O X24HR #### [facility] [address] [place] [address] Dr. Suzie Brooks HSTROP 9.0 pg/mL Normal 4.0-76.1 [facility] Comment on above: Result Comment: CUT- OFF POINTS HAVE BEEN ESTABLISHED BASED ON THE FOURTH UNIVERSAL DEFINITIONS OF MYOCARDIAL INFARCTION. THE UPPER REFERENCE LIMIT (URL) OF TROPONIN, DEFINED THE 99TH PERCENTILE OF cTnI DISTRIBUTION IN A REFERENCE POPULATION, HAS BEEN CONFIRMED THE DECISION THRESHOLD FOR [place] DIAGNOSIS. Performed By: #### O X24HR #### [facility] [address] [address] [address] Suzie Brooks EDIE 85 ng/mL Normal 16-96 [facility] Comment on above: Performed By: #### O X24HR #### [facility] [address] [place] [address] Dr. Suzie Brooks CBC AUTO DIFFon 07-26-2022 BASO # 0.1 103/ul Normal 0.0-0.1 [facility] Comment on above: Performed By: #### U DINA, LIPID, TSH, BNP, CMP, T7 #### [facility] [address] [place] [address] Dr. Suzie Brooks Basophils/100 WBC (Bld) 0.4 % Normal 0.2-2.0 [facility] Comment on above: Performed By: #### U DINA, LIPID, TSH, BNP, CMP, T7 #### [facility] [address] [place] [address] Dr. Suzie Brooks EO # 0.3 103/ul Normal 0.0-0.7 [facility] Comment on above: Performed By: #### U DINA, LIPID, TSH, BNP, CMP, T7 #### [facility] [address] [place] [address] Dr. Suzie Brooks Eosinophils/100 WBC (Bld) 2.5 % Normal 0.9-7.0 [facility] Comment on above: Performed By: #### U DINA, LIPID, TSH, BNP, CMP, T7 #### [facility] [address] [place] [address] Dr. Suzie Brooks Erythrocyte distribution width (RBC) [Ratio] 14.4 % Normal 11.0-15.0 [facility] Comment on above: Performed By: #### U DINA, LIPID, TSH, BNP, CMP, T7 #### [facility] [address] [place] [address] Dr. Suzie Brooks Hematocrit (Bld) [Volume fraction] 46.0 % Normal 42.0-54.0 [facility] Comment on above: Performed By: #### U DINA, LIPID, TSH, BNP, CMP, T7 #### [facility] [address] [place] [address] Dr. Suzie Brooks Hemoglobin (Bld) [Mass/Vol] 15.6 g/dL Normal 14.0-18.0 [facility] Comment on above: Performed By: #### U DINA, LIPID, TSH, BNP, CMP, T7 #### [facility] [address] [address] [address] Suzie Brooks IG # 0.07 10e3/ul Critically high 0.00-0.03 [facility] Comment on above: Performed By: #### U DINA, LIPID, TSH, BNP, CMP, T7 #### [facility] [address] [address] [address] Suzie Brooks IG % 0.6 % Critically high 0.0-0.5 [facility] Comment on above: Performed By: #### U DINA, LIPID, TSH, BNP, CMP, T7 #### [facility] [address] [place] [address] Dr. Suzie Brooks LYMPH # 2.9 103/ul Normal 1.2-3.8 [facility] Comment on above: Performed By: #### U DINA, LIPID, TSH, BNP, CMP, T7 #### [facility] [address] [address] [address] Suzie Brooks Lymphocytes/100 WBC (Bld) 24.2 % Normal 20.5-60.0 [facility] Comment on above: Performed By: #### U DINA, LIPID, TSH, BNP, CMP, T7 #### [facility] [address] [place] [address] Dr. Suzie Brooks MANUAL DIFF REQ NO Normal [facility] Comment on above: Performed By: #### U DINA, LIPID, TSH, BNP, CMP, T7 #### [facility] [address] [address] [address] Suzie Brooks MCH (RBC) [Entitic mass] 28.6 pg Normal 25.9-34.0 [facility] Comment on above: Performed By: #### U DINA, LIPID, TSH, BNP, CMP, T7 #### [facility] [address] [place] [address] Dr. Suzie Brooks MCHC (RBC) [Mass/Vol] 33.9 g/dL Normal 29.9-35.2 [facility] Comment on above: Performed By: #### U DINA, LIPID, TSH, BNP, CMP, T7 #### [facility] [address] [place] [place] [address] Dr. Suzie Brooks MCV (RBC) [Entitic vol] 84.4 fL Normal 80.0-94.0 [facility] Comment on above: Performed By: #### U DINA, LIPID, TSH, BNP, CMP, T7 #### [facility] [address] [place] [address] Dr. Suzie Brooks MONO # 0.8 103/ul Normal 0.3-0.8 [facility] Comment on above: Performed By: #### U DINA, LIPID, TSH, BNP, CMP, T7 #### [facility] [address] [place] [address] Dr. Suzie Brooks Monocytes/100 WBC (Bld) 6.7 % Normal 1.7-12.0 [facility] Comment on above: Performed By: #### U DINA, LIPID, TSH, BNP, CMP, T7 #### [facility] [address] [place] [address] Dr. Suzie Brooks NEUT # 7.8 103/ul Critically high 1.4-6.5 [facility] Comment on above: Performed By: #### U DINA, LIPID, TSH, BNP, CMP, T7 #### [facility] [address] [place] [address] Dr. Suzie Brooks Neutrophils/100 WBC (Bld) 65.6 % Normal 43.0-75.0 [facility] Comment on above: Performed By: #### U DINA, LIPID, TSH, BNP, CMP, T7 #### [facility] [address] [place] [address] Dr. Suzie Brooks Platelet mean volume (Bld) [Entitic vol] 9.7 fL Normal 9.5-13.5 [facility] Comment on above: Performed By: #### U DINA, LIPID, TSH, BNP, CMP, T7 #### [facility] [address] [place], [place] [address] Dr. Suzie Brooks PLT 289 103/ul Normal 150-450 [facility] Comment on above: Performed By: #### U DINA, LIPID, TSH, BNP, CMP, T7 #### [facility] [address] [address] [address] Suzie Brooks RBC 5.45 106/ul Normal 4.70-6.10 [facility] Comment on above: Performed By: #### U DINA, LIPID, TSH, BNP, CMP, T7 #### [facility] [address] [place], [place] [address] Dr. Suzie Brooks WBC 11.9 103/ul Critically high 4.0-11.[address] [facility] Comment on above: Performed By: #### U DINA, LIPID, TSH, BNP, CMP, T7 #### [facility] [address] [place], [place] [address] Dr. Suzie Brooks CTA CHEST WO W [...] BEHZAD CARRASQUILLO Date: 2022-07-26 11:59 Normal [facility] Covid-19 PCR (CVDTBH)on 07-11 SARS-CoV-2 (COVID-19) RNA SUKHJINDER+probe Ql (Unsp spec) Not detected Normal NOT DETECTED [facility] Comment on above: Result Comment: When [...] for this test is supported by the Deployment Manager of Health and Human Service's declaration that [...] DINA, LIPID, TSH, BNP, CMP, T7 #### [facility] [address] [place] [address] Dr. Suzie Brooks D-DIMERon 07-26-2022 D-DIMER 0.88 mg/L FEU Critically high <=0.59 [facility] Comment on above: Performed By: #### C VDTB #### [facility] [address] [place] [address] Dr. Suzie Brooks D-DIMER COMMENTS SEE BELOW Normal [facility] Comment on above: Result Comment: Incr [...] hospitalization. Performed By: #### C VDTB #### [facility] [address] [place] [address] Dr. Suzie Brooks ECHOCARDIO M/2D COMPLETEon 1 09-26-2021 ECHOCARDIO M/2D COMPLETE Patient: RIZWAN APARICIO Exam Date: 07/26/2022 : 1950 Gender:M Ordering : DR MARIELLE LERMA . Admission #: [id number] Family : Order #: [id number] CLICK HERE TO VIEW EXAM ECHOCARDIOGRAM REPORT [...] Rios M.D. on 07/26/2022 at 16:22 Normal [facility] PROF 14(COMP METB)on 022 Albumin [Mass/Vol] 3.6 g/dL Normal 3.4-5.0 [facility] Comment on above: Performed By: #### U DINA, LIPID, TSH, BNP, CMP, T7 #### [facility] [address] [address] [address] Suzie Brooks Albumin/Globulin [Mass ratio] 0.9 {ratio} Normal [facility] Comment on above: Performed By: #### U DINA, LIPID, TSH, BNP, CMP, T7 #### [facility] [address] [address] [address] Suzie Brooks ALP [Catalytic activity/Vol] 70 U/L Normal 46-116 [facility] Comment on above: Performed By: #### U DINA, LIPID, TSH, BNP, CMP, T7 #### [facility] [address] [place], [place] [address] Dr. Suzie Brooks ALT [Catalytic activity/Vol] 30 U/L Normal 16-63 [facility] Comment on above: Performed By: #### U DINA, LIPID, TSH, BNP, CMP, T7 #### [facility] [address] [place] [address] Dr. Suzie Brooks Anion gap [Moles/Vol] 9.2 mmol/L Normal [facility] Comment on above: Performed By: #### U DINA, LIPID, TSH, BNP, CMP, T7 #### [facility] [address] [place] [address] Dr. Suzie Brooks AST [Catalytic activity/Vol] 29 U/L Normal 15-37 [facility] Comment on above: Performed By: #### U DINA, LIPID, TSH, BNP, CMP, T7 #### [facility] [address] [place] [address] Dr. Suzie Brooks Bilirubin [Mass/Vol] 0.5 mg/dL Normal 0.2-1.0 [facility] Comment on above: Performed By: #### U DINA, LIPID, TSH, BNP, CMP, T7 #### [facility] [address] [place] [address] Dr. Suzie Brooks Calcium [Mass/Vol] 8.8 mg/dL Normal 8.5-10.1 [facility] Comment on above: Performed By: #### U DINA, LIPID, TSH, BNP, CMP, T7 #### [facility] [address] [place] [address] Dr. Suzie Brooks Chloride [Moles/Vol] 102 mmol/L Normal 98-107 [facility] Comment on above: Performed By: #### U DINA, LIPID, TSH, BNP, CMP, T7 #### [facility] [address] [place] [address] Dr. Suzie Brooks CO2 [Moles/Vol] 27.2 mmol/L Normal 21.0-32.[address] [facility] Comment on above: Performed By: #### U DINA, LIPID, TSH, BNP, CMP, T7 #### [facility] [address] [place] [address] Dr. Suzie Brooks Creatinine [Mass/Vol] 0.99 mg/dL Normal 0.70-1.30 [facility] Comment on above: Performed By: #### U DINA, LIPID, TSH, BNP, CMP, T7 #### [facility] [address] [address] [address] Suzie Brooks EGFR-AF NAMIBIAN >60 Normal >=60 [facility] Comment on above: Performed By: #### U DINA, LIPID, TSH, BNP, CMP, T7 #### [facility] [address] [address] [address] Suzie Brooks EGFR-NON AF NAMIBIAN >60 Normal >=60 [facility] Comment on above: Performed By: #### U DINA, LIPID, TSH, BNP, CMP, T7 #### [facility] [address] [place] [address] Dr. Suzie Brooks Globulin (S) [Mass/Vol] 3.9 g/dL Normal [facility] Comment on above: Performed By: #### U DINA, LIPID, TSH, BNP, CMP, T7 #### [facility] [address] [address] [address] Suzie Brooks Glucose [Mass/Vol] 125 mg/dL Critically high 74-106 [facility] Comment on above: Performed By: #### U DINA, LIPID, TSH, BNP, CMP, T7 #### [facility] [address] [place] [address] Dr. Suzie Brooks Potassium [Moles/Vol] 3.4 mmol/L Critically low 3.5-5.1 [facility] Comment on above: Performed By: #### U DINA, LIPID, TSH, BNP, CMP, T7 #### [facility] [address] [place] [address] Dr. Suzie Brooks Protein [Mass/Vol] 7.5 g/dL Normal 6.4-8.2 [facility] Comment on above: Performed By: #### U DINA, LIPID, TSH, BNP, CMP, T7 #### [facility] [address] [place] [address] Dr. Suzie Brooks Sodium [Moles/Vol] 135 mmol/L Critically low 136-145 [facility] Comment on above: Performed By: #### U DINA, LIPID, TSH, BNP, CMP, T7 #### [facility] [address] [place] [address] Dr. Suzie Brooks Urea nitrogen [Mass/Vol] 15.0 mg/dL Normal 7.0-18.0 [facility] Comment on above: Performed By: #### U DINA, LIPID, TSH, BNP, CMP, T7 #### [facility] [address] [place] [address] Dr. Suzie Brooks Urea nitrogen/Creatinine [Mass ratio] 15.2 mg/mg Normal [facility] Comment on above: Performed By: #### U DINA, LIPID, TSH, BNP, CMP, T7 #### [facility] [address] [place] [address] Dr. Suzie Brooks PROTIMEon 07-26-2022 INR Coag (PPP) [Relative time] 0.95 {INR} Normal [facility] Comment on above: Performed By: #### C VDTBH #### [facility] [address] [place] [address] Dr. Suzie Brooks INR GUIDELINES SEE BELOW Normal [facility] Comment on above: Result Comment: TOMMY RED INR: 2.0 - 3.0 CONDITIONS NOT LISTED BELOW 2.5 - 3.5 FOR PROSTHETIC HEART VALVE REPLACEMENT 2.5 - 3.5 RECURRENT THROMBOSIS Performed By: #### C VDTBH #### [facility] [address] [place] [address] Dr. Suzie Brooks PT Coag (PPP) [Time] 10.3 s Normal 9.0-11.6 [facility] Comment on above: Performed By: #### C VDTBH #### [facility] [address] [place] [address] Dr. Suzie Brooks PTTon 07-26-2022 aPTT Coag (Bld) [Time] 28.2 s Normal 22.3-36.2 [facility] Comment on above: Performed By: #### C VDTBH #### [facility] [address] [place] [address] Dr. Suzie Brooks TSHon 07-26-2022 TSH 2.000 uIU/mL Normal 0.358-3.740 [facility] Comment on above: Performed By: #### O X24HR #### [facility] [id number] Suzie Brooks XR CHEST 1 Von [...] BEHZAD CARRASQUILLO Date: 2022-07-26 10:51 Normal [facility] CREATININEon 07-18-2022 Creatinine [Mass/Vol] 0.93 mg/dL Normal 0.70-1.30 [facility] Comment on above: Performed By: #### U DINA, LIPID, TSH, BNP, CMP, T7 #### [facility] [id number] Suzie Brooks EGFR-AF NAMIBIAN >60 Normal >=60 [facility] Comment on above: Performed By: #### U DINA, LIPID, TSH, BNP, CMP, T7 #### [facility] [id number] [address] Suzie Brooks EGFR-NON AF NAMIBIAN >60 Normal >=60 [facility] Comment on above: Performed By: #### U DINA, LIPID, TSH, BNP, CMP, T7 #### [facility] [address] [place], [place] [address] Dr. 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 Comment on above: Performed By: #### U DINA, LIPID, TSH, BNP, CMP, T7 #### [facility] [address] [place] [address] Dr. Suzie Brooks BNPon 05-15-2022 Natriuretic peptide B (Bld) [Mass/Vol] 81.0 pg/mL Normal <=900.0 [facility] Comment on above: Performed By: #### U DINA, LIPID, TSH, BNP, CMP, T7 #### [facility] [address] [address] [address] Suzie Brooks CBC AUTO DIFFon 05-15-2022 BASO # 0.1 103/ul Normal 0.0-0.1 [facility] Comment on above: Performed By: #### C VDTBH #### [facility] [address] [place] [address] Dr. Suzie Brooks Basophils/100 WBC (Bld) 0.6 % Normal 0.2-2.0 [facility] Comment on above: Performed By: #### C VDTBH #### [facility] [address] [place] [address] Dr. Suzie Brooks EO # 0.3 103/ul Normal 0.0-0.7 [facility] Comment on above: Performed By: #### C VDTBH #### [facility] [address] [place] [address] Dr. Suzie Brooks Eosinophils/100 WBC (Bld) 2.9 % Normal 0.9-7.0 [facility] Comment on above: Performed By: #### C VDTBH #### [facility] [address] [place] [address] Dr. Suzie Brooks Erythrocyte distribution width (RBC) [Ratio] 14.1 % Normal 11.0-15.0 [facility] Comment on above: Performed By: #### C VDTBH #### [facility] [address] [place] [address] Dr. Suzie Brooks Hematocrit (Bld) [Volume fraction] 46.7 % Normal 42.0-54.0 [facility] Comment on above: Performed By: #### C VDTBH #### [facility] [address] [place] [address] Dr. Suzie Brooks Hemoglobin (Bld) [Mass/Vol] 15.4 g/dL Normal 14.0-18.0 [facility] Comment on above: Performed By: #### C VDTBH #### [facility] [address] [place] [address] Dr. Suzie Brooks IG # 0.03 10e3/ul Normal 0.00-0.03 [facility] Comment on above: Performed By: #### C VDTBH #### [facility] [address] [place] [address] Dr. Suzie Brooks IG % 0.3 % Normal 0.0-0.5 [facility] Comment on above: Performed By: #### C VDTBH #### [facility] [address] [place] [address] Dr. Suzie Brooks LYMPH # 2.6 103/ul Normal 1.2-3.8 [facility] Comment on above: Performed By: #### C VDTBH #### [facility] [address] [place] [address] Dr. Suzie Brooks Lymphocytes/100 WBC (Bld) 25.1 % Normal 20.5-60.0 [facility] Comment on above: Performed By: #### C VDTBH #### [facility] [address] [place] [address] Dr. Suzie Brooks MANUAL DIFF REQ NO Normal [facility] Comment on above: Performed By: #### C VDTBH #### [facility] [address] [place] [address] Dr. Suzie Brooks MCH (RBC) [Entitic mass] 28.6 pg Normal 25.9-34.0 [facility] Comment on above: Performed By: #### C VDTBH #### [facility] [address] [place] [address] Dr. Suzie Brooks MCHC (RBC) [Mass/Vol] 33.0 g/dL Normal 29.9-35.2 [facility] Comment on above: Performed By: #### C VDTBH #### [facility] [address] [place] [address] Dr. Suzie Brooks MCV (RBC) [Entitic vol] 86.8 fL Normal 80.0-94.0 [facility] Comment on above: Performed By: #### C VDTBH #### [facility] [address] [place] [address] Dr. Suzie Brooks MONO # 0.7 103/ul Normal 0.3-0.8 [facility] Comment on above: Performed By: #### C VDTBH #### [facility] [address] [place] [address] Dr. Suzie Brooks Monocytes/100 WBC (Bld) 6.8 % Normal 1.7-12.0 [facility] Comment on above: Performed By: #### C VDTBH #### [facility] [address] [place] [address] Dr. Suzie rBooks NEUT # 6.5 103/ul Normal 1.4-6.5 [facility] Comment on above: Performed By: #### C VDTBH #### [facility] [address] [address] [address] Suzie Brooks Neutrophils/100 WBC (Bld) 64.3 % Normal 43.0-75.0 [facility] Comment on above: Performed By: #### C VDTBH #### [facility] [address] [address] [address] Suzie Brooks Platelet mean volume (Bld) [Entitic vol] 9.5 fL Normal 9.5-13.5 [facility] Comment on above: Performed By: #### C VDTBH #### [facility] [address] [place] [address] Dr. Suzie Brooks PLT 273 103/ul Normal 150-450 [facility] Comment on above: Performed By: #### C VDTBH #### [facility] [address] [place] [address] Dr. Suzie Brooks RBC 5.38 106/ul Normal 4.70-6.10 [facility] Comment on above: Performed By: #### C VDTBH #### [facility] [address] [place] [address] Dr. Suzie Brooks WBC 10.2 103/ul Normal 4.0-11.0 [facility] Comment on above: Performed By: #### C VDTBH #### [facility] [address] [place] [address] Dr. Suzie Brooks FREE THYROXINE INDEX T7on FTI 2.23 Normal 1.30-4.50 [facility] Comment on above: Performed By: #### U DINA, LIPID, TSH, BNP, CMP, T7 #### [facility] [address] [place] [address] Dr. Suzie Brooks T3U 36.0 % Normal 33.0-40.0 [facility] Comment on above: Performed By: #### U DINA, LIPID, TSH, BNP, CMP, T7 #### [facility] [address] [place] [address] Dr. Suzie Brooks T4 [Mass/Vol] 6.20 ug/dL Normal 4.50-12.10 [facility] Comment on above: Performed By: #### U DINA, LIPID, TSH, BNP, CMP, T7 #### [facility] [address] [address] [address] Suzie Brooks GLYCOHEMOGLOBIN A1Con 2021 ADA RECOMMENDATION SEE BELOW Normal [facility] Comment on above: Result Comment: ADA RECOMMENDED LIMIT 4.0 - 6.0 ADA THERAPEUTIC TARGET < 7.0 ACTION SUGGESTED > 7.0 Performed By: #### U DINA, LIPID, TSH, BNP, CMP, T7 #### [facility] [address] [address] [address] Suzie Brooks Glucose [Mass/Vol] 111 mg/dL Normal [facility] Comment on above: Performed By: #### U DINA, LIPID, TSH, BNP, CMP, T7 #### [facility] [address] [address] [address] Suzie Brooks HbA1c (Bld) [Mass fraction] 5.5 % Normal 4.5-6.2 [facility] Comment on above: Performed By: #### U DINA, LIPID, TSH, BNP, CMP, T7 #### [facility] [address] [address] [address] Suzie Brooks LIPID PROFILEon 05-15-2022 CHOL-HDL RATIO NORM SEE BELOW Normal [facility] Comment on above: Result Comment: 3.3 - 4.4 LOW RISK 4.4 - 7.1 AVERAGE RISK 7.1 - 11.0 MODERATE RISK >11.0 HIGH RISK Performed By: #### U DINA, LIPID, TSH, BNP, CMP, T7 #### [facility] [address] [address] [address] Suzie Brooks Cholesterol [Mass/Vol] 136 mg/dL Normal <=200 [facility] Comment on above: Performed By: #### U DINA, LIPID, TSH, BNP, CMP, T7 #### [facility] [address] [address] [address] Suzie Brooks Cholesterol in HDL [Mass/Vol] 34 mg/dL Critically low 40-60 [facility] Comment on above: Performed By: #### U DINA, LIPID, TSH, BNP, CMP, T7 #### [facility] [address] [address] [address] Suzie Brooks Cholesterol in LDL [Mass/Vol] 49.8 mg/dL Normal [facility] Comment on above: Performed By: #### U DINA, LIPID, TSH, BNP, CMP, T7 #### [facility] [address] [address] [address] Suzie Brooks Cholesterol.total/Ch olesterol in HDL [Mass ratio] 4.0 {ratio} Normal [facility] Comment on above: Performed By: #### U DINA, LIPID, TSH, BNP, CMP, T7 #### [facility] [address] [address] [address] Suzie Brooks HDL NORMAL > or = 60 mg/dl - LO W CARDIOVASCULAR RISK <40 mg/dl - HIGH CARDIOVASCULAR RISK Normal [facility] Comment on above: Performed By: #### U DINA, LIPID, TSH, BNP, CMP, T7 #### [facility] [address] [address] [address] Suzie Brooks LDL CALC NORMAL SEE BELOW Normal [facility] Comment on above: Result Comment: <100 mg/dl OPTIMAL 100 - 129 mg/dl NEAR OR ABOVE OPTIMAL 130 - 159 mg/dl BORDERLINE HIGH 160 - 189 mg/dl HIGH >190 mg/dl VERY HIGH Performed By: #### U DINA, LIPID, TSH, BNP, CMP, T7 #### [facility] [address] [address] [address] Suzie Brooks Triglyceride [Mass/Vol] 261 mg/dL Critically high <=150 [facility] Comment on above: Performed By: #### U DINA, LIPID, TSH, BNP, CMP, T7 #### [facility] [address] [address] [address] Suzie Brooks VLDL CALC 52.2 mg/dL Normal [facility] Comment on above: Performed By: #### U DINA, LIPID, TSH, BNP, CMP, T7 #### [facility] [address] [address] [address] Szuie Brooks PROF 14(COMP METB)on 022 Albumin [Mass/Vol] 3.6 g/dL Normal 3.4-5.0 [facility] Comment on above: Performed By: #### U DINA, LIPID, TSH, BNP, CMP, T7 #### [facility] [address] [place] [address] Dr. Suzie Brooks Albumin/Globulin [Mass ratio] 0.9 {ratio} Normal [facility] Comment on above: Performed By: #### U DINA, LIPID, TSH, BNP, CMP, T7 #### [facility] [address] [place] [address] Dr. Suzie Brooks ALP [Catalytic activity/Vol] 60 U/L Normal 46-116 [facility] Comment on above: Performed By: #### U DINA, LIPID, TSH, BNP, CMP, T7 #### [facility] [address] [place] [address] Dr. Suzie Brooks ALT [Catalytic activity/Vol] 36 U/L Normal 16-63 [facility] Comment on above: Performed By: #### U DINA, LIPID, TSH, BNP, CMP, T7 #### [facility] [address] [place] [address] Dr. Suzie Brooks Anion gap [Moles/Vol] 11.7 mmol/L Normal [facility] Comment on above: Performed By: #### U DINA, LIPID, TSH, BNP, CMP, T7 #### [facility] [address] [place] [address] Dr. Suzie Brooks AST [Catalytic activity/Vol] 28 U/L Normal 15-37 [facility] Comment on above: Performed By: #### U DINA, LIPID, TSH, BNP, CMP, T7 #### [facility] [address] [address] [address] Suzie Brooks Bilirubin [Mass/Vol] 0.6 mg/dL Normal 0.2-1.0 [facility] Comment on above: Performed By: #### U DINA, LIPID, TSH, BNP, CMP, T7 #### [facility] [address] [address] [address] Suzie Brooks Calcium [Mass/Vol] 8.8 mg/dL Normal 8.5-10.1 [facility] Comment on above: Performed By: #### U DINA, LIPID, TSH, BNP, CMP, T7 #### [facility] [address] [address] [address] Suzie Brooks Chloride [Moles/Vol] 102 mmol/L Normal 98-107 [facility] Comment on above: Performed By: #### U DINA, LIPID, TSH, BNP, CMP, T7 #### [facility] [address] [address] [address] Suzie Brooks CO2 [Moles/Vol] 27.9 mmol/L Normal 21.0-32.0 [facility] Comment on above: Performed By: #### U DINA, LIPID, TSH, BNP, CMP, T7 #### [facility] [address] [place] [address] Dr. Suzie Brooks Creatinine [Mass/Vol] 0.98 mg/dL Normal 0.70-1.30 [facility] Comment on above: Performed By: #### U DINA, LIPID, TSH, BNP, CMP, T7 #### [facility] [address] [place] [address] Dr. Suzie Brooks EGFR-AF NAMIBIAN >60 Normal >=60 [facility] Comment on above: Performed By: #### U DINA, LIPID, TSH, BNP, CMP, T7 #### [facility] [address] [place] [address] Dr. Suzie Brooks EGFR-NON AF NAMIBIAN >60 Normal >=60 [facility] Comment on above: Performed By: #### U DINA, LIPID, TSH, BNP, CMP, T7 #### [facility] [address] [address] [address] Suzie Brooks Globulin (S) [Mass/Vol] 3.8 g/dL Normal [facility] Comment on above: Performed By: #### U DINA, LIPID, TSH, BNP, CMP, T7 #### [facility] [address] [address] [address] Suzie Brooks Glucose [Mass/Vol] 107 mg/dL Critically high 74-106 [facility] Comment on above: Performed By: #### U DINA, LIPID, TSH, BNP, CMP, T7 #### [facility] [address] [address] [address] Suzie Brooks Potassium [Moles/Vol] 3.6 mmol/L Normal 3.5-5.1 [facility] Comment on above: Performed By: #### U DINA, LIPID, TSH, BNP, CMP, T7 #### [facility] Laboratory [address] [place] [address] Dr. Suzie Brooks Protein [Mass/Vol] 7.4 g/dL Normal 6.4-8.2 [facility] Comment on above: Performed By: #### U DINA, LIPID, TSH, BNP, CMP, T7 #### [facility] [address] [place] [address] Dr. Suzie Brooks Sodium [Moles/Vol] 138 mmol/L Normal 136-145 [facility] Comment on above: Performed By: #### U DINA, LIPID, TSH, BNP, CMP, T7 #### [facility] [address] [place] [address] Dr. Suzie Brooks Urea nitrogen [Mass/Vol] 12.0 mg/dL Normal 7.0-18.0 [facility] Comment on above: Performed By: #### U DINA, LIPID, TSH, BNP, CMP, T7 #### [facility] [address] [place] [address] Dr. Suzie Brooks Urea nitrogen/Creatinine [Mass ratio] 12.2 mg/mg Normal [facility] Comment on above: Performed By: #### U DINA, LIPID, TSH, BNP, CMP, T7 #### [facility] [address] [place] [address] Dr. Suzie Boroks TSHon 05-15-2022 TSH 2.356 uIU/mL Normal 0.358-3.740 [facility] Comment on above: Performed By: #### U DINA, LIPID, TSH, BNP, CMP, T7 #### [facility] [address] [place] [address] Dr. Suzie Brooks URIC ACID SERUMon 05-15-2022 Urate [Mass/Vol] 5.2 mg/dL Normal 3.5-7.[address] [facility] Comment on above: Performed By: #### U DINA, LIPID, TSH, BNP, CMP, T7 #### [facility] [address] [address] [address] Suzie Brooks CALCULI, URINARYon 2 2,8 Dihydroxyadenine Normal [facility] Comment on above: Performed By: #### U DINA, LIPID, TSH, BNP, CMP, T7 #### [facility] [address] [address] [address] Suzie Brooks Ammonium Acid Urate Normal [facility] Comment on above: Performed By: #### U DINA, LIPID, TSH, BNP, CMP, T7 #### [facility] [address] [address] [address] Suzie Brooks Bilirubin Ql (U) Normal [facility] Comment on above: Performed By: #### U DINA, LIPID, TSH, BNP, CMP, T7 #### [facility] [address] [address] [address] Suzie Brooks Ca Oxalate Dihydrate Normal [facility] Comment on above: Performed By: #### U DINA, LIPID, TSH, BNP, CMP, T7 #### [facility] [address] [address] [address] Suzie Brooks CaHPO4 (Brushite) Normal [facility] Comment on above: Performed By: #### U DINA, LIPID, TSH, BNP, CMP, T7 #### [facility] [address] [address] [address] Suzie Brooks Calcium Bilirubinate Normal [facility] Comment on above: Performed By: #### U DINA, LIPID, TSH, BNP, CMP, T7 #### [facility] [address] [address] [address] Suzie Brooks Calcium Carbonate Normal [facility] Comment on above: Performed By: #### U DINA, LIPID, TSH, BNP, CMP, T7 #### [facility] [address] [address] [address] Suzie Brooks Calcium Oxalate Monohydrate 70 % Normal [facility] Comment on above: Performed By: #### U DINA, LIPID, TSH, BNP, CMP, T7 #### [facility] [address] [address] [address] Suzie Brooks Calcium Palmitate Normal [facility] Comment on above: Performed By: #### U DINA, LIPID, TSH, BNP, CMP, T7 #### [facility] [address] [address] [address] Suzie Brooks Calcium Phosphate Normal [facility] Comment on above: Performed By: #### U DINA, LIPID, TSH, BNP, CMP, T7 #### [facility] [address] [address] [address] Suzie Brooks Calcium Stearate Normal [facility] Comment on above: Performed By: #### U DINA, LIPID, TSH, BNP, CMP, T7 #### [facility] [address] [address] [address] Suzie Brooks Carbonate Apatite Normal [facility] Comment on above: Performed By: #### U DINA, LIPID, TSH, BNP, CMP, T7 #### [facility] [address] [address] [address] Suzie Brooks Cellular Material Normal [facility] Comment on above: Performed By: #### U DINA, LIPID, TSH, BNP, CMP, T7 #### [facility] [address] [address] [address] Suzie Brooks Cholesterol Normal [facility] Comment on above: Performed By: #### U DINA, LIPID, TSH, BNP, CMP, T7 #### [facility] [address] [address] [address] Suzie Brooks Color (U) Brown Normal [facility] Comment on above: Performed By: #### U DINA, LIPID, TSH, BNP, CMP, T7 #### [facility] [address] [address] [address] Suzie Brooks Comment [facility] Comment on above: Performed By: #### U DINA, LIPID, TSH, BNP, CMP, T7 #### [facility] [address] [address] [address] Suzie Brooks Comment Comment Normal [facility] Comment on above: Result Comment: Calc ulus received in liquid. Wet calculi must be dried before analysis, which delays reporting of results. Leaving calculi in liquid (such as water, saline, blood, urine) may lead to changes in composition. Performed By: #### U DINA, LIPID, TSH, BNP, CMP, T7 #### [facility] [address] [address] [address] Suzie Brooks Comment: Comment Normal [facility] Comment on above: Result Comment: Fantasma baez questions regarding Calculi Analysis [facility] at: [phone]. Performed By: #### U DINA, LIPID, TSH, BNP, CMP, T7 #### [facility] [address] [address] [address] Suzie Brooks Composition Comment Normal [facility] Comment on above: Result Comment: Perc entage (Represents the % composition) Performed By: #### U DINA, LIPID, TSH, BNP, CMP, T7 #### [facility] [address] [address] [address] Suzie Brooks Cystine Normal [facility] Comment on above: Performed By: #### U DINA, LIPID, TSH, BNP, CMP, T7 #### [facility] [address] [address] [address] Suzie Brooks Disclaimer: Comment Normal [facility] Comment on above: Result Comment: This test was developed and its performance characteristics determined by [facility]. It has not been cleared or approved by the Food and Drug Administration. Performed By: #### U DINA, LIPID, TSH, BNP, CMP, T7 #### [facility] [address] [address] [address] Suzie Brooks Dried Blood Normal [facility] Comment on above: Performed By: #### U DINA, LIPID, TSH, BNP, CMP, T7 #### [facility] [address] [address] [address] Suzie Brooks Drug or Metabolite Normal [facility] Comment on above: Performed By: #### U DINA, LIPID, TSH, BNP, CMP, T7 #### [facility] [address] [address] [address] Suzie Brooks Hydroxyapatite Normal [facility] Comment on above: Performed By: #### U DINA, LIPID, TSH, BNP, CMP, T7 #### [facility] [address] [address] [address] Suzie Brooks Mg NH4 PO4 (Struvite) [facility] Comment on above: Performed By: #### U DINA, LIPID, TSH, BNP, CMP, T7 #### [facility] [address] [address] [address] Suzie Brooks MgHPO4 (Newberyite) [facility] Comment on above: Performed By: #### U DINA, LIPID, TSH, BNP, CMP, T7 #### [facility] [address] [address] [address] Suzie Brooks Other component(s) Normal [facility] Comment on above: Performed By: #### U DINA, LIPID, TSH, BNP, CMP, T7 #### [facility] [address] [address] [address] Suzie Brooks PDF . [facility] Comment on above: Performed By: #### U DINA, LIPID, TSH, BNP, CMP, T7 #### [facility] [address] [address] [address] Suzie Brooks Photo Comment [facility] Comment on above: Result Comment: Phot ograph will follow under a separate cover Performed By: #### U DINA, LIPID, TSH, BNP, CMP, T7 #### [facility] [address] [address] [address] Suzie Brooks Please note: Comment [facility] Comment on above: Result Comment: Calc shamika report will follow via computer, mail or slitter scorer cut off operator delivery. Performed By: #### U DINA, LIPID, TSH, BNP, CMP, T7 #### [facility] [address] [address] [address] Suzie Brooks Size 6x4 [facility] Comment on above: Result Comment: Mult iple pieces received. Dimensions of the largest piece reported. Performed By: #### U DINA, LIPID, TSH, BNP, CMP, T7 #### [facility] [address] [address] [address] Suzie Brooks Sodium Acid Urate Normal [facility] Comment on above: Performed By: #### U DINA, LIPID, TSH, BNP, CMP, T7 #### [facility] [address] [address] [address] Suzie Brooks Source Comment [facility] Comment on above: Result Comment: Not provided Performed By: #### U DINA, LIPID, TSH, BNP, CMP, T7 #### [facility] [address] [address] [address] Suzie Brooks Triamterene [facility] Comment on above: Performed By: #### U DINA, LIPID, TSH, BNP, CMP, T7 #### [facility] [address] [address] [address] Suzie Brooks Uric Acid 30 % [facility] Comment on above: Performed By: #### U DINA, LIPID, TSH, BNP, CMP, T7 #### [facility] [address] [address] [address] Suzie Brooks Uric Acid Dihydrate Normal [facility] Comment on above: Performed By: #### U DNIA, LIPID, TSH, BNP, CMP, T7 #### [facility] [address] [address] [address] Suzie Brooks Weight 99 mg [facility] Comment on above: Performed By: #### U DINA, LIPID, TSH, BNP, CMP, T7 #### [facility] [address] [address] [address] Suzie Brooks Xanthine Normal [facility] Comment on above: Performed By: #### U DINA, LIPID, TSH, BNP, CMP, T7 #### [facility] [address] [address] [address] Suzie Brooks CBC AUTO DIFFon 02-18-2022 BASO # 0.0 103/ul Normal 0.0-0.1 [facility] Comment on above: Performed By: #### U DINA, LIPID, TSH, BNP, CMP, T7 #### [facility] [address] [place] [address] Dr. Suzie Brooks Basophils/100 WBC (Bld) 0.3 % Normal 0.2-2.0 [facility] Comment on above: Performed By: #### U DINA, LIPID, TSH, BNP, CMP, T7 #### [facility] [address] [place] [address] Dr. Suzie Brooks EO # 0.3 103/ul Normal 0.0-0.7 [facility] Comment on above: Performed By: #### U DINA, LIPID, TSH, BNP, CMP, T7 #### [facility] [address] [place] [address] Dr. Suzie Brooks Eosinophils/100 WBC (Bld) 2.3 % Normal 0.9-7.0 [facility] Comment on above: Performed By: #### U DINA, LIPID, TSH, BNP, CMP, T7 #### [facility] [address] [place] [address] Dr. Suzie Brooks Erythrocyte distribution width (RBC) [Ratio] 14.2 % Normal 11.0-15.0 [facility] Comment on above: Performed By: #### U DINA, LIPID, TSH, BNP, CMP, T7 #### [facility] [address] [place] [address] Dr. Suzie Brooks Hematocrit (Bld) [Volume fraction] 41.3 % Critically low 42.0-54.0 [facility] Comment on above: Performed By: #### U DINA, LIPID, TSH, BNP, CMP, T7 #### [facility] [address] [place] [address] Dr. Suzie Brooks Hemoglobin (Bld) [Mass/Vol] 13.4 g/dL Critically low 14.0-18.0 [facility] Comment on above: Performed By: #### U DINA, LIPID, TSH, BNP, CMP, T7 #### [facility] [address] [place] [address] Dr. Suzie Brooks IG # 0.03 10e3/ul Normal 0.00-0.03 [facility] Comment on above: Performed By: #### U DINA, LIPID, TSH, BNP, CMP, T7 #### [facility] [address] [address] [address] Suzie Brooks IG % 0.3 % Normal 0.0-0.5 [facility] Comment on above: Performed By: #### U DINA, LIPID, TSH, BNP, CMP, T7 #### [facility] [address] [place] [address] Dr. Suzie Brooks LYMPH # 2.0 103/ul Normal 1.2-3.8 [facility] Comment on above: Performed By: #### U DINA, LIPID, TSH, BNP, CMP, T7 #### [facility] [address] [place] [address] Dr. Suzie Brooks Lymphocytes/100 WBC (Bld) 18.0 % Critically low 20.5-60.0 [facility] Comment on above: Performed By: #### U DINA, LIPID, TSH, BNP, CMP, T7 #### [facility] [address] [place] [address] Dr. Suzie Brooks MANUAL DIFF REQ NO Normal [facility] Comment on above: Performed By: #### U DINA, LIPID, TSH, BNP, CMP, T7 #### [facility] [address] [place] [address] Dr. Suzie Brooks MCH (RBC) [Entitic mass] 28.8 pg Normal 25.9-34.0 [facility] Comment on above: Performed By: #### U DINA, LIPID, TSH, BNP, CMP, T7 #### [facility] [address] [place] [address] Dr. Suzie Brooks MCHC (RBC) [Mass/Vol] 32.4 g/dL Normal 29.9-35.2 [facility] Comment on above: Performed By: #### U DINA, LIPID, TSH, BNP, CMP, T7 #### [facility] [address] [place] [address] Dr. Suzie Brooks MCV (RBC) [Entitic vol] 88.6 fL Normal 80.0-94.0 [facility] Comment on above: Performed By: #### U DINA, LIPID, TSH, BNP, CMP, T7 #### [facility] [address] [place] [address] Dr. Suzie Brooks MONO # 1.0 103/ul Critically high 0.3-0.8 [facility] Comment on above: Performed By: #### U DINA, LIPID, TSH, BNP, CMP, T7 #### [facility] [address] [place] [address] Dr. Suzie Brooks Monocytes/100 WBC (Bld) 9.2 % Normal 1.7-12.0 [facility] Comment on above: Performed By: #### U DINA, LIPID, TSH, BNP, CMP, T7 #### [facility] [address] [place] [address] Dr. Suzie Brooks NEUT # 7.9 103/ul Critically high 1.4-6.5 [facility] Comment on above: Performed By: #### U DINA, LIPID, TSH, BNP, CMP, T7 #### [facility] [address] [place] [address] Dr. Suzie Brooks Neutrophils/100 WBC (Bld) 69.9 % Normal 43.0-75.0 [facility] Comment on above: Performed By: #### U DINA, LIPID, TSH, BNP, CMP, T7 #### [facility] [address] [place] [address] Dr. Suzie Brooks Platelet mean volume (Bld) [Entitic vol] 9.6 fL Normal 9.5-13.5 [facility] Comment on above: Performed By: #### U DINA, LIPID, TSH, BNP, CMP, T7 #### [facility] [address] [place] [address] Dr. Suzie Brooks PLT 218 103/ul Normal 150-450 [facility] Comment on above: Performed By: #### U DINA, LIPID, TSH, BNP, CMP, T7 #### [facility] [address] [place] [address] Dr. Suzie Brooks RBC 4.66 106/ul Critically low 4.70-6.10 [facility] Comment on above: Performed By: #### U DINA, LIPID, TSH, BNP, CMP, T7 #### [facility] [address] [address] [address] Suzie Brooks WBC 11.3 103/ul Critically high 4.0-11.0 [facility] Comment on above: Performed By: #### U DINA, LIPID, TSH, BNP, CMP, T7 #### [facility] [id number] Suzie Brooks CULTURE URINEon 02-18-2022 CULTURE URINE Culture Observations : NO GROWTH. Normal [facility] Comment on above: Performed By: #### M AG24 #### [facility] [address] [address] [address] Suzie Brooks Covid-19 PCR (CVDTBH)on 02-08 SARS-CoV-2 (COVID-19) RNA SUKHJINDER+probe Ql (Unsp spec) Not detected Normal NOT DETECTED [facility] Comment on above: Result Comment: When [...] for this test is supported by the Deployment Manager of Health and Human Service's declaration that [...] used). Performed By: #### C VDTBH #### [facility] [address] [place], [place] [id number] Dr. Suzie Brooks PROF 14(COMP METB)on 022 Albumin [Mass/Vol] 3.0 g/dL Critically low 3.4-5.0 [facility] Comment on above: Performed By: #### O X24HR #### [facility] [address] [address] [address] Suzie Brooks Albumin/Globulin [Mass ratio] 0.9 {ratio} Normal [facility] Comment on above: Performed By: #### O X24HR #### [facility] [address] [place] [address] Dr. Suzie Brooks ALP [Catalytic activity/Vol] 49 U/L Normal 46-116 [facility] Comment on above: Performed By: #### O X24HR #### [facility] [address] [place] [address] Dr. Suzie Brooks ALT [Catalytic activity/Vol] 35 U/L Normal 16-63 [facility] Comment on above: Performed By: #### O X24HR #### [facility] [address] [place] [address] Dr. Suzie Brooks Anion gap [Moles/Vol] 11.8 mmol/L Normal [facility] Comment on above: Performed By: #### O X24HR #### [facility] [address] [place] [address] Dr. Suzie Brooks AST [Catalytic activity/Vol] 27 U/L Normal 15-37 [facility] Comment on above: Performed By: #### O X24HR #### [facility] [address] [place] [address] Dr. Suzie Brooks Bilirubin [Mass/Vol] 0.4 mg/dL Normal 0.2-1.0 [facility] Comment on above: Performed By: #### O X24HR #### [facility] [address] [place] [address] Dr. Suzie Brooks Calcium [Mass/Vol] 7.6 mg/dL Critically low 8.5-10.1 [facility] Comment on above: Performed By: #### O X24HR #### [facility] [address] [place] [address] Dr. Suzie Brooks Chloride [Moles/Vol] 106 mmol/L Normal 98-107 [facility] Comment on above: Performed By: #### O X24HR #### [facility] [address] [place] [address] Dr. Suzie Brooks CO2 [Moles/Vol] 26.2 mmol/L Normal 21.0-32.0 [facility] Comment on above: Performed By: #### O X24HR #### [facility] [address] [place] [address] Dr. Suzie Brooks Creatinine [Mass/Vol] 1.08 mg/dL Normal 0.70-1.30 [facility] Comment on above: Performed By: #### O X24HR #### [facility] [address] [place] [address] Dr. Suzie Brooks EGFR-AF NAMIBIAN >60 Normal >=60 [facility] Comment on above: Performed By: #### O X24HR #### [facility] [address] [place] [address] Dr. Suzie Brooks EGFR-NON AF NAMIBIAN >60 Normal >=60 [facility] Comment on above: Performed By: #### O X24HR #### [facility] [address] [place] [address] Dr. Suzie Brooks Globulin (S) [Mass/Vol] 3.2 g/dL Normal [facility] Comment on above: Performed By: #### O X24HR #### [facility] [address] [place] [address] Dr. Suzie Brooks Glucose [Mass/Vol] 107 mg/dL Critically high 74-106 [facility] Comment on above: Performed By: #### O X24HR #### [facility] [address] [place] [address] Dr. Suzie Brooks Potassium [Moles/Vol] 4.0 mmol/L Normal 3.5-5.1 [facility] Comment on above: Performed By: #### O X24HR #### [facility] [address] [place] [address] Dr. Suzie Brooks Protein [Mass/Vol] 6.2 g/dL Critically low 6.4-8.2 [facility] Comment on above: Performed By: #### O X24HR #### [facility] [address] [place] [address] Dr. Suzie Brooks Sodium [Moles/Vol] 140 mmol/L Normal 136-145 [facility] Comment on above: Performed By: #### O X24HR #### [facility] [address] [place] [address] Dr. Suzie Brooks Urea nitrogen [Mass/Vol] 14.0 mg/dL Normal 7.0-18.0 [facility] Comment on above: Performed By: #### O X24HR #### [facility] [address] [place] [address] Dr. Suzie Brooks Urea nitrogen/Creatinine [Mass ratio] 13.0 mg/mg Normal [facility] Comment on above: Performed By: #### O X24HR #### [facility] [address] [place] [address] Dr. Suzie Brooks CBC AUTO DIFFon 02-17-2022 BASO # 0.1 103/ul Normal 0.0-0.1 [facility] Comment on above: Performed By: #### M AG24 #### [facility] [address] [place] [address] Dr. Suzie Brooks Basophils/100 WBC (Bld) 0.4 % Normal 0.2-2.0 [facility] Comment on above: Performed By: #### M AG24 #### [facility] [address] [place] [address] Dr. Suzie Brooks EO # 0.3 103/ul Normal 0.0-0.7 [facility] Comment on above: Performed By: #### M AG24 #### [facility] [address] [place] [address] Dr. Suzie Brooks Eosinophils/100 WBC (Bld) 2.3 % Normal 0.9-7.0 [facility] Comment on above: Performed By: #### M AG24 #### [facility] [address] [place] [address] Dr. Suzie Brooks Erythrocyte distribution width (RBC) [Ratio] 13.8 % Normal 11.0-15.0 [facility] Comment on above: Performed By: #### M AG24 #### [facility] [address] [place] [address] Dr. Suzie Brooks Hematocrit (Bld) [Volume fraction] 45.2 % Normal 42.0-54.0 [facility] Comment on above: Performed By: #### M AG24 #### [facility] [address] [place] [address] Dr. Suzie Brooks Hemoglobin (Bld) [Mass/Vol] 14.9 g/dL Normal 14.0-18.0 [facility] Comment on above: Performed By: #### M AG24 #### [facility] [address] [address] [address] Suzie Brooks IG # 0.05 10e3/ul Critically high 0.00-0.03 [facility] Comment on above: Performed By: #### M AG24 #### [facility] [address] [place] [address] Dr. Suzie Brooks IG % 0.4 % Normal 0.0-0.5 [facility] Comment on above: Performed By: #### M AG24 #### [facility] [address] [place] [address] Dr. Suzie Brooks LYMPH # 2.5 103/ul Normal 1.2-3.8 [facility] Comment on above: Performed By: #### M AG24 #### [facility] [address] [place] [address] Dr. Suzie Brooks Lymphocytes/100 WBC (Bld) 17.3 % Critically low 20.5-60.0 [facility] Comment on above: Performed By: #### M AG24 #### [facility] [address] [place] [address] Dr. Suzie Brooks MANUAL DIFF REQ NO Normal [facility] Comment on above: Performed By: #### M AG24 #### [facility] [address] [place] [address] Dr. Suzie Brooks MCH (RBC) [Entitic mass] 28.7 pg Normal 25.9-34.0 [facility] Comment on above: Performed By: #### M AG24 #### [facility] [address] [place] [address] Dr. Suzie Brooks MCHC (RBC) [Mass/Vol] 33.0 g/dL Normal 29.9-35.2 [facility] Comment on above: Performed By: #### M AG24 #### [facility] [address] [place] [address] Dr. Suzie Brooks MCV (RBC) [Entitic vol] 87.1 fL Normal 80.0-94.0 [facility] Comment on above: Performed By: #### M AG24 #### [facility] [address] [place] [address] Dr. Suzie Brooks MONO # 1.0 103/ul Critically high 0.3-0.8 [facility] Comment on above: Performed By: #### M AG24 #### [facility] [address] [place] [address] Dr. Suzie Brooks Monocytes/100 WBC (Bld) 6.8 % Normal 1.7-12.0 [facility] Comment on above: Performed By: #### M AG24 #### [facility] [address] [place] [address] Dr. Suzie Brooks NEUT # 10.3 103/ul Critically high 1.4-6.[address] [facility] Comment on above: Performed By: #### M AG24 #### [facility] [address] [place] [address] Dr. Suzie Brooks Neutrophils/100 WBC (Bld) 72.8 % Normal 43.0-75.0 [facility] Comment on above: Performed By: #### M AG24 #### [facility] [address] [place] [address] Dr. Suzie Brooks Platelet mean volume (Bld) [Entitic vol] 9.7 fL Normal 9.5-13.5 [facility] Comment on above: Performed By: #### M AG24 #### [facility] [address] [place] [address] Dr. Suzie Brooks PLT 253 103/ul Normal 150-450 [facility] Comment on above: Performed By: #### M AG24 #### [facility] [address] [place] [address] Dr. Suzie Brooks RBC 5.19 106/ul Normal 4.70-6.10 [facility] Comment on above: Performed By: #### M AG24 #### [facility] [address] [place] [address] Dr. Suzie Brooks WBC 14.2 103/ul Critically high 4.0-11.0 [facility] Comment on above: Performed By: #### M AG24 #### [facility] [address] [place] [address] Dr. Suzie Brooks CULTURE BLOODon 02-17-2022 Microscopic examination of blood, culture Culture Observations: NO GROWTH AT 5 DAYS. Normal [facility] Comment on above: Performed By: #### M AG24 #### [facility] [address] [place] [address] Dr. Suzie Brooks Microscopic examination of blood, culture Culture Observations: NO GROWTH AT 5 DAYS. Normal [facility] Comment on above: Performed By: #### M AG24 #### [facility] [address] [place] [address] Dr. Suzie Brooks ER URINE PROFILEon Bilirubin Ql (U) Negative Normal NEGATIVE [facility] Comment on above: Performed By: #### E RUR #### [facility] [address] [place] [address] Dr. Suzie Brooks Clarity (U) CLEAR Normal CLEAR [facility] Comment on above: Performed By: #### E RUR #### [facility] [address] [place] [address] Dr. Suzie Brooks Color (U) DK. YELLOW Normal YELLOW [facility] Comment on above: Performed By: #### E RUR #### [facility] [address] [place] [address] Dr. Suzie Brooks ERUDIOGOD A micrscopic examina tion will be performed if indicated. Normal [facility] Comment on above: Performed By: #### E RUR #### [facility] [address] [place] [address] Dr. Suzie Brooks Glucose Ql (U) Negative Normal NEGATIVE [facility] Comment on above: Performed By: #### E RUR #### [facility] [address] [place] [address] Dr. Suzie Brooks Hemoglobin Ql (U) Negative Normal NEGATIVE [facility] Comment on above: Performed By: #### E RUR #### [facility] [address] [place] [address] Dr. Suzie Brooks Ketones Ql (U) Negative Normal NEGATIVE [facility] Comment on above: Performed By: #### E RUR #### [facility] [address] [place] [address] Dr. Suzie Brooks LEUKOCYTES Negative Normal NEGATIVE [facility] Comment on above: Performed By: #### E RUR #### [facility] [address] [place] [address] Dr. Suzie Brooks Nitrite Ql (U) Negative Normal NEGATIVE [facility] Comment on above: Performed By: #### E RUR #### [facility] [address] [place] [address] Dr. Suzie Brooks pH (U) 5.0 [pH] Normal 5-9 [facility] Comment on above: Performed By: #### E RUR #### [facility] [address] [place] [address] Dr. Suzie Brooks SPEC GRAVITY >=1.030 Abnormal 1.005-<=1.02 5 [facility] Comment on above: Performed By: #### E RUR #### [facility] [address] [place] [address] Dr. Suzie Brooks UA PROTEIN Negative Normal NEGATIVE/ TRACE [facility] Comment on above: Performed By: #### E RUR #### [facility] [address] [place] [address] Dr. Suzie Brooks UR MICRO IND NOT INDICATED Normal [facility] Comment on above: Performed By: #### E RUR #### [facility] [address] [place] [address] Dr. Suzie Brooks Urobilinogen Qn (U) 0.2 {Behzad'U}/dL Normal 0.2 - 1. 0 [facility] Comment on above: Performed By: #### E RUR #### [facility] [address] [address] [address] Suzie Brooks LACTATE/LACTIC ACIDon 2021 Lactate [Moles/Vol] 1.4 mmol/L Normal 0.4-1.9 [facility] Comment on above: Performed By: #### U DINA, LIPID, TSH, BNP, CMP, T7 #### [facility] [address] [address] [address] Suzie Brooks PROF CHEM 8 (BAS METB)on Anion gap [Moles/Vol] 12.2 mmol/L Normal [facility] Comment on above: Performed By: #### U DINA, LIPID, TSH, BNP, CMP, T7 #### [facility] [address] [address] [address] Suzie Brooks Calcium [Mass/Vol] 8.1 mg/dL Critically low 8.5-10.1 [facility] Comment on above: Performed By: #### U DINA, LIPID, TSH, BNP, CMP, T7 #### [facility] [address] [address] [address] Suzie Brooks Chloride [Moles/Vol] 103 mmol/L Normal 98-107 [facility] Comment on above: Performed By: #### U DINA, LIPID, TSH, BNP, CMP, T7 #### [facility] [address] [address] [address] Suzie Brooks CO2 [Moles/Vol] 26.1 mmol/L Normal 21.0-32.0 [facility] Comment on above: Performed By: #### U DINA, LIPID, TSH, BNP, CMP, T7 #### [facility] [address] [address] [address] Suzie Brooks Creatinine [Mass/Vol] 1.06 mg/dL Normal 0.70-1.30 [facility] Comment on above: Performed By: #### U DINA, LIPID, TSH, BNP, CMP, T7 #### [facility] [address] [address] [address] Suzie Brooks EGFR-AF NAMIBIAN >60 Normal >=60 [facility] Comment on above: Performed By: #### U DINA, LIPID, TSH, BNP, CMP, T7 #### [facility] [address] [address] [address] Suzie Brooks EGFR-NON AF NAMIBIAN >60 Normal >=60 [facility] Comment on above: Performed By: #### U DINA, LIPID, TSH, BNP, CMP, T7 #### [facility] [address] [address] [address] Suzie Brooks Glucose [Mass/Vol] 138 mg/dL Critically high 74-106 [facility] Comment on above: Performed By: #### U DINA, LIPID, TSH, BNP, CMP, T7 #### [facility] [address] [address] [address] Suzie Brooks Potassium [Moles/Vol] 4.3 mmol/L Normal 3.5-5.1 [facility] Comment on above: Performed By: #### U DINA, LIPID, TSH, BNP, CMP, T7 #### [facility] [address] [address] [address] Suzie Brooks Sodium [Moles/Vol] 137 mmol/L Normal 136-145 [facility] Comment on above: Performed By: #### U DINA, LIPID, TSH, BNP, CMP, T7 #### [facility] [address] [address] [address] Suzie Brooks Urea nitrogen [Mass/Vol] 14.0 mg/dL Normal 7.0-18.0 [facility] Comment on above: Performed By: #### U DINA, LIPID, TSH, BNP, CMP, T7 #### [facility] [address] [address] [address] Suzie Brooks Urea nitrogen/Creatinine [Mass ratio] 13.2 mg/mg Normal [facility] Comment on above: Performed By: #### U DINA, LIPID, TSH, BNP, CMP, T7 #### [facility] [address] [address] [address] Suzie Brooks TROPONIN, HIGH SENSITIVITYon 02-17-2022 HSTROP 8.4 pg/mL Normal 4.0-76.1 [facility] Comment on above: Result Comment: CUT- OFF POINTS HAVE BEEN ESTABLISHED BASED ON THE FOURTH UNIVERSAL DEFINITIONS OF MYOCARDIAL INFARCTION. THE UPPER REFERENCE LIMIT (URL) OF TROPONIN, DEFINED THE 99TH PERCENTILE OF cTnI DISTRIBUTION IN A REFERENCE POPULATION, HAS BEEN CONFIRMED THE DECISION THRESHOLD FOR [place] DIAGNOSIS. Performed By: #### U DINA, LIPID, TSH, BNP, CMP, T7 #### [facility] [address] [place] [address] Dr. Suzie Brooks CBC AUTO DIFFon 02-16-2022 BASO # 0.1 103/ul Normal 0.0-0.1 [facility] Comment on above: Performed By: #### U DINA, LIPID, TSH, BNP, CMP, T7 #### [facility] [address] [place] [address] Dr. Suzie Brooks Basophils/100 WBC (Bld) 0.4 % Normal 0.2-2.0 [facility] Comment on above: Performed By: #### U DINA, LIPID, TSH, BNP, CMP, T7 #### [facility] [address] [place] [address] Dr. Suzie Brooks EO # 0.3 103/ul Normal 0.0-0.7 [facility] Comment on above: Performed By: #### U DINA, LIPID, TSH, BNP, CMP, T7 #### [facility] [address] [place] [address] Dr. Suzie Brooks Eosinophils/100 WBC (Bld) 2.5 % Normal 0.9-7.0 [facility] Comment on above: Performed By: #### U DINA, LIPID, TSH, BNP, CMP, T7 #### [facility] [address] [place] [address] Dr. Suzie Brooks Erythrocyte distribution width (RBC) [Ratio] 13.9 % Normal 11.0-15.0 [facility] Comment on above: Performed By: #### U DINA, LIPID, TSH, BNP, CMP, T7 #### [facility] [address] [place] [address] Dr. Suzie Brooks Hematocrit (Bld) [Volume fraction] 46.6 % Normal 42.0-54.0 [facility] Comment on above: Performed By: #### U DINA, LIPID, TSH, BNP, CMP, T7 #### [facility] [address] [address] [address] Suzie Brooks Hemoglobin (Bld) [Mass/Vol] 15.7 g/dL Normal 14.0-18.0 [facility] Comment on above: Performed By: #### U DINA, LIPID, TSH, BNP, CMP, T7 #### [facility] [address] [address] [address] Suzie Brooks IG # 0.05 10e3/ul Critically high 0.00-0.03 [facility] Comment on above: Performed By: #### U DINA, LIPID, TSH, BNP, CMP, T7 #### [facility] [address] [place] [address] Dr. Suzie Brooks IG % 0.4 % Normal 0.0-0.5 [facility] Comment on above: Performed By: #### U DINA, LIPID, TSH, BNP, CMP, T7 #### [facility] [address] [place] [address] Dr. Suzie Brooks LYMPH # 3.7 103/ul Normal 1.2-3.8 [facility] Comment on above: Performed By: #### U DINA, LIPID, TSH, BNP, CMP, T7 #### [facility] [address] [place] [address] Dr. Suzie Brooks Lymphocytes/100 WBC (Bld) 26.6 % Normal 20.5-60.0 [facility] Comment on above: Performed By: #### U DINA, LIPID, TSH, BNP, CMP, T7 #### [facility] [address] [address] [address] Suzie Brooks MANUAL DIFF REQ NO Normal [facility] Comment on above: Performed By: #### U DINA, LIPID, TSH, BNP, CMP, T7 #### [facility] [address] [place] [address] Dr. Suzie Brooks MCH (RBC) [Entitic mass] 29.2 pg Normal 25.9-34.0 [facility] Comment on above: Performed By: #### U DINA, LIPID, TSH, BNP, CMP, T7 #### [facility] [address] [address] [address] [facility] ([facility] [Mass/Vol] 33.7 g/dL Normal 29.9-35.2 [facility] Comment on above: Performed By: #### U DINA, LIPID, TSH, BNP, CMP, T7 #### [facility] [address] [address] [address] Suzie Brooks MCV (RBC) [Entitic vol] 86.6 fL Normal 80.0-94.0 [facility] Comment on above: Performed By: #### U DINA, LIPID, TSH, BNP, CMP, T7 #### [facility] [address] [place] [address] Dr. Suzie Brooks MONO # 1.0 103/ul Critically high 0.3-0.8 [facility] Comment on above: Performed By: #### U DINA, LIPID, TSH, BNP, CMP, T7 #### [facility] [address] [place] [address] Dr. Suzie Brooks Monocytes/100 WBC (Bld) 7.2 % Normal 1.7-12.0 [facility] Comment on above: Performed By: #### U DINA, LIPID, TSH, BNP, CMP, T7 #### [facility] [address] [place] [address] Dr. Suzie Brooks NEUT # 8.7 103/ul Critically high 1.4-6.5 [facility] Comment on above: Performed By: #### U DINA, LIPID, TSH, BNP, CMP, T7 #### [facility] [address] [place] [address] Dr. Suzie Brooks Neutrophils/100 WBC (Bld) 62.9 % Normal 43.0-75.0 [facility] Comment on above: Performed By: #### U DINA, LIPID, TSH, BNP, CMP, T7 #### [facility] [address] [place] [address] Dr. Suzie Brooks Platelet mean volume (Bld) [Entitic vol] 9.4 fL Critically low 9.5-13.5 [facility] Comment on above: Performed By: #### U DINA, LIPID, TSH, BNP, CMP, T7 #### [facility] [address] [place], [place] [address] Dr. Suzie Brooks PLT 277 103/ul Normal 150-450 [facility] Comment on above: Performed By: #### U DINA, LIPID, TSH, BNP, CMP, T7 #### [facility] [address] [place], [place] [address] Dr. Suzie Brooks RBC 5.38 106/ul Normal 4.70-6.10 [facility] Comment on above: Performed By: #### U DINA, LIPID, TSH, BNP, CMP, T7 #### [facility] [address] [place], [place] [address] Dr. Suzie Brooks WBC 13.8 103/ul Critically high 4.0-11.[address] [facility] Comment on above: Performed By: #### U DINA, LIPID, TSH, BNP, CMP, T7 #### [facility] [address] [place], [place] [address] ABD/PELVIS WO CONon [...] Reilly CAST Date: 2022-02-16 20:51 Normal [facility] ER URINE PROFILEon 2 Bilirubin Ql (U) Negative Normal NEGATIVE [facility] Comment on above: Performed By: #### U DINA, LIPID, TSH, BNP, CMP, T7 #### [facility] [address] [address] [address] Suzie Brooks Clarity (U) CLEAR Normal CLEAR [facility] Comment on above: Performed By: #### U DINA, LIPID, TSH, BNP, CMP, T7 #### [facility] [address] [address] [address] Suzie Brooks Color (U) YELLOW Normal YELLOW [facility] Comment on above: Performed By: #### U DINA, LIPID, TSH, BNP, CMP, T7 #### [facility] [address] [address] [address] Suzie Brooks ERUAHD A micrscopic examina tion will be performed if indicated. Normal [facility] Comment on above: Performed By: #### U DINA, LIPID, TSH, BNP, CMP, T7 #### [facility] [address] [address] [address] Suzie Brooks Glucose Ql (U) Negative Normal NEGATIVE [facility] Comment on above: Performed By: #### U DINA, LIPID, TSH, BNP, CMP, T7 #### [facility] [address] [address] [address] Suzie Brooks Hemoglobin Ql (U) MODERATE Abnormal NEGATIVE [facility] Comment on above: Performed By: #### U DINA, LIPID, TSH, BNP, CMP, T7 #### [facility] [address] [address] [address] Suzie Brooks Ketones Ql (U) Negative Normal NEGATIVE [facility] Comment on above: Performed By: #### U DINA, LIPID, TSH, BNP, CMP, T7 #### [facility] [address] [place] [address] Dr. Suzie Brooks LEUKOCYTES Negative Normal NEGATIVE [facility] Comment on above: Performed By: #### U DINA, LIPID, TSH, BNP, CMP, T7 #### [facility] [address] [address] [address] Suzie Brooks Nitrite Ql (U) Negative Normal NEGATIVE [facility] Comment on above: Performed By: #### U DINA, LIPID, TSH, BNP, CMP, T7 #### [facility] [address] [address] [address] Suzie Brooks pH (U) 5.5 [pH] Normal 5-9 [facility] Comment on above: Performed By: #### U DINA, LIPID, TSH, BNP, CMP, T7 #### [facility] [address] [address] [address] Suzie Brooks SPEC GRAVITY >=1.030 Abnormal 1.005-<=1.02 5 [facility] Comment on above: Performed By: #### U DINA, LIPID, TSH, BNP, CMP, T7 #### [facility] [address] [place] [address] Dr. Suzie Brooks UA PROTEIN Negative Normal NEGATIVE/ TRACE [facility] Comment on above: Performed By: #### U DINA, LIPID, TSH, BNP, CMP, T7 #### [facility] [address] [place] [address] Dr. Suzie Brooks UR MICRO IND INDICATED Normal [facility] Comment on above: Performed By: #### U DINA, LIPID, TSH, BNP, CMP, T7 #### [facility] [address] [place] [address] Dr. Suzie Brooks Urobilinogen Qn (U) 0.2 {Behzad'U}/dL Normal 0.2 - 1. 0 [facility] Comment on above: Performed By: #### U DINA, LIPID, TSH, BNP, CMP, T7 #### [facility] [address] [place] [address] Dr. Suzie Brooks PROF CHEM 8 (BAS METB)on Anion gap [Moles/Vol] 12.2 mmol/L Normal [facility] Comment on above: Performed By: #### U DINA, LIPID, TSH, BNP, CMP, T7 #### [facility] [address] [place] [address] Dr. Suzie Brooks Calcium [Mass/Vol] 8.5 mg/dL Normal 8.5-10.1 [facility] Comment on above: Performed By: #### U DINA, LIPID, TSH, BNP, CMP, T7 #### [facility] [address] [place] [address] Dr. Suzie Brooks Chloride [Moles/Vol] 104 mmol/L Normal 98-107 [facility] Comment on above: Performed By: #### U DINA, LIPID, TSH, BNP, CMP, T7 #### [facility] [address] [address] [address] Suzie Brooks CO2 [Moles/Vol] 24.1 mmol/L Normal 21.0-32.0 [facility] Comment on above: Performed By: #### U DINA, LIPID, TSH, BNP, CMP, T7 #### [facility] [address] [place] [address] Dr. Suzie Brooks Creatinine [Mass/Vol] 1.14 mg/dL Normal 0.70-1.30 [facility] Comment on above: Performed By: #### U DINA, LIPID, TSH, BNP, CMP, T7 #### [facility] [address] [address] [address] Suzie Brooks EGFR-AF NAMIBIAN >60 Normal >=60 [facility] Comment on above: Performed By: #### U DINA, LIPID, TSH, BNP, CMP, T7 #### [facility] [address] [address] [address] Suzie Brooks EGFR-NON AF NAMIBIAN >60 Normal >=60 [facility] Comment on above: Performed By: #### U DINA, LIPID, TSH, BNP, CMP, T7 #### [facility] [address] [address] [address] Suzie Brooks Glucose [Mass/Vol] 114 mg/dL Critically high 74-106 [facility] Comment on above: Performed By: #### U DINA, LIPID, TSH, BNP, CMP, T7 #### [facility] [address] [address] [address] Suzie Brooks Potassium [Moles/Vol] 4.3 mmol/L Normal 3.5-5.1 [facility] Comment on above: Performed By: #### U DINA, LIPID, TSH, BNP, CMP, T7 #### [facility] [address] [address] [address] Suzie Brooks Sodium [Moles/Vol] 136 mmol/L Normal 136-145 [facility] Comment on above: Performed By: #### U DINA, LIPID, TSH, BNP, CMP, T7 #### [facility] [address] [address] [address] Suzie Brooks Urea nitrogen [Mass/Vol] 14.0 mg/dL Normal 7.0-18.0 [facility] Comment on above: Performed By: #### U DINA, LIPID, TSH, BNP, CMP, T7 #### [facility] [address] [address] [address] Suzie Brooks Urea nitrogen/Creatinine [Mass ratio] 12.3 mg/mg Normal [facility] Comment on above: Performed By: #### U DINA, LIPID, TSH, BNP, CMP, T7 #### [facility] [address] [address] [address] Suzie Brooks URINE MICROSCOPIC ONLYon BACTERIA NONE SEEN Normal NONE SEEN [facility] Comment on above: Performed By: #### U DINA, LIPID, TSH, BNP, CMP, T7 #### [facility] [address] [address] [address] Suzie Brooks Bacteria identified Cx Nom (U) NOT INDICATED Normal [facility] Comment on above: Performed By: #### U DINA, LIPID, TSH, BNP, CMP, T7 #### [facility] [address] [place] [address] Dr. Suzie Brooks CAST NONE SEEN Normal NONE SEEN [facility] Comment on above: Performed By: #### U DINA, LIPID, TSH, BNP, CMP, T7 #### [facility] [address] [place] [address] Dr. Suzie Brooks Crystals LM Nom (Urine sed) NONE SEEN Normal NONE SEEN [facility] Comment on above: Performed By: #### U DINA, LIPID, TSH, BNP, CMP, T7 #### [facility] [address] [place] [address] Dr. Suzie Brooks Epithelial cells LM Ql (Urine sed) RARE Normal NONE SEEN /RARE [facility] Comment on above: Performed By: #### U DINA, LIPID, TSH, BNP, CMP, T7 #### [facility] [address] [place] [address] Dr. Suzie Brooks MUCOUS NONE SEEN Normal NONE SEEN [facility] Comment on above: Performed By: #### U DINA, LIPID, TSH, BNP, CMP, T7 #### [facility] [address] [place] [address] Dr. Suzie Brooks RBC 5-10 Abnormal 0-2 [facility] Comment on above: Performed By: #### U DINA, LIPID, TSH, BNP, CMP, T7 #### [facility] [address] [place] [address] Dr. Suzie Brooks WBC NONE SEEN Normal NONE SEEN [facility] Comment on above: Performed By: #### U DINA, LIPID, TSH, BNP, CMP, T7 #### [facility] [address] [address] [address] Suzie Brooks CITRATE URINE 24HRon 022 Citric Acid, U, 24hr 1312 mg/24 hr Critically high 320-124 0 [facility] Comment on above: Result Comment: This test was developed and its performance characteristics determined by [employer]. It has not been cleared or approved by the Food and Drug Administration. Performed By: #### U DINA, LIPID, TSH, BNP, CMP, T7 #### [facility] [address] [address] [address] Suzie Brooks Citric Acid, Urine 610 mg/L Normal Undefined [facility] Comment on above: Performed By: #### U DINA, LIPID, TSH, BNP, CMP, T7 #### [facility] [address] [place] [address] Dr. Suzie Brooks OXALATE 24HR URINEon 022 Oxalates, Urine 11 mg/L Normal Undefined [facility] Comment on above: Performed By: #### O [id number] #### [facility] [address] [place] [place] [address] Dr. Suzie Brooks Oxalates, Urine 24hr 24 mg/24 hr Normal 7-44 [facility] Comment on above: Performed By: #### O X24HR #### [facility] [address] [place] [address] Dr. Suzie Brooks MAGNESIUM 24HR URINEon 02-02 Magnesium 24hr Urine 77.4 mg/24 hr Normal 12.0-293.0 [facility] Comment on above: Performed By: #### M AG24 #### [facility] [address] [place] [address] Dr. Suzie Brooks Magnesium UR 3.6 mg/dL Normal Not Estab. [facility] Comment on above: Performed By: #### M AG24 #### [facility] [address] [place] [address] Dr. Suzie Brooks PHOSPHORUS 24HR URINEon 01-10 Phosphorus, Urine 44.1 mg/dL Normal Not Estab. [facility] Comment on above: Performed By: #### U DINA, LIPID, TSH, BNP, CMP, T7 #### [facility] [address] [address] [address] Suzie Brooks Phosphorus, Urine 24hr 948 mg/24 hr Normal 390-1425 [facility] Comment on above: Performed By: #### U DINA, LIPID, TSH, BNP, CMP, T7 #### [facility] [address] [address] [address] Suzie Brooks URIC ACID 24 HR URINEon 01-10 Uric Acid, Urine 35.4 mg/dL Normal Not Estab. [facility] Comment on above: Performed By: #### U DINA, LIPID, TSH, BNP, CMP, T7 #### [facility] [address] [address] [address] Suzie Brooks Uric Acid, Urine 24hr 761.1 mg/24 hr Normal 182.4-936.8 [facility] Comment on above: Performed By: #### U DINA, LIPID, TSH, BNP, CMP, T7 #### [facility] [address] [address] [address] Suzie Brooks CALCIUM 24 HR URINEon 2021 CALC, 24 HR UR 187.0 mg/24 hr Normal 100.0-300.0 [facility] Comment on above: Performed By: #### U DINA, LIPID, TSH, BNP, CMP, T7 #### [facility] [address] [address] [address] Suzie Brooks UR CALCIUM 8.7 mg/dL Normal 5.1-21.0 [facility] Comment on above: Performed By: #### U DINA, LIPID, TSH, BNP, CMP, T7 #### [facility] [address] [address] [address] Suzie Brooks UR TOT VOL 2150 ml/24 HR Normal [facility] Comment on above: Performed By: #### U DINA, LIPID, TSH, BNP, CMP, T7 #### [facility] [address] [address] [address] Suzie Brooks CREA 24 HR URINEon 2 CREA, 24 HR UR 1983.59 mg/24 hr Normal 1,000.00- 2,0 00.00 [facility] Comment on above: Performed By: #### U DINA, LIPID, TSH, BNP, CMP, T7 #### [facility] [address] [place] [address] Dr. Suzie Brooks URINE CREAT 92.26 mg/dL Normal 20.00-300.00 [facility] Comment on above: Performed By: #### U DINA, LIPID, TSH, BNP, CMP, T7 #### [facility] [address] [place] [address] Dr. Suzie Brooks SODIUM 24 HR URINEon 022 NA, 24 HR UR 172 mmol/24 hr Normal 40-220 [facility] Comment on above: Performed By: #### U DINA, LIPID, TSH, BNP, CMP, T7 #### [facility] [address] [place] [address] Dr. Suzie Brooks Sodium (U) [Moles/Vol] 80 mmol/L Normal 30-90 [facility] Comment on above: Performed By: #### U DINA, LIPID, TSH, BNP, CMP, T7 #### [facility] [address] [place] [address] Dr. Suzie Brooks PTH INTACTon 01-31-2022 PTH, Intact 24 pg/mL Normal 15-65 [facility] Comment on above: Performed By: #### U DINA, LIPID, TSH, BNP, CMP, T7 #### [facility] [address] [place] [address] Dr. Suzie Brooks BUNon 01-30-2022 Urea nitrogen [Mass/Vol] 12.0 mg/dL Normal 7.0-18.0 [facility] Comment on above: Performed By: #### U DINA, LIPID, TSH, BNP, CMP, T7 #### [facility] [address] [place] [address] Dr. Suzie Brooks CALCIUMon 01-30-2022 Calcium [Mass/Vol] 8.6 mg/dL Normal 8.5-10.1 [facility] Comment on above: Performed By: #### U DINA, LIPID, TSH, BNP, CMP, T7 #### [facility] [address] [address] [address] Suzie Brooks CHLORIDEon 01-30-2022 Chloride [Moles/Vol] 104 mmol/L Normal 98-107 [facility] Comment on above: Performed By: #### U DINA, LIPID, TSH, BNP, CMP, T7 #### [facility] [address] [address] [address] Suzie Brooks CO2on 01-30-2022 CO2 [Moles/Vol] 29.3 mmol/L Normal 21.0-32.[address] [facility] Comment on above: Performed By: #### U DINA, LIPID, TSH, BNP, CMP, T7 #### [facility] [address] [place] [address] Dr. Suzie Brooks CREATININEon 01-30-2022 Creatinine [Mass/Vol] 0.92 mg/dL Normal 0.70-1.30 [facility] Comment on above: Performed By: #### U DINA, LIPID, TSH, BNP, CMP, T7 #### [facility] [address] [address] [address] Suzie Brooks EGFR-AF NAMIBIAN >60 Normal >=60 [facility] Comment on above: Performed By: #### U DINA, LIPID, TSH, BNP, CMP, T7 #### [facility] [address] [address] [address] Suzie Brooks EGFR-NON AF NAMIBIAN >60 Normal >=60 [facility] Comment on above: Performed By: #### U DINA, LIPID, TSH, BNP, CMP, T7 #### [facility] [address] [address] [address] Suzie Brooks NAon 01-30-2022 Sodium [Moles/Vol] 140 mmol/L Normal 136-145 [facility] Comment on above: Performed By: #### U DINA, LIPID, TSH, BNP, CMP, T7 #### [facility] [address] [place] [address] Dr. Suzie Brooks POTASSIUMon 01-30-2022 Potassium [Moles/Vol] 4.0 mmol/L Normal 3.5-5.1 [facility] Comment on above: Performed By: #### U DINA, LIPID, TSH, BNP, CMP, T7 #### [facility] [address] [place], [place] [address] Dr. Suzie Broosk URIC ACID SERUMon 01-30-2022 Urate [Mass/Vol] 5.2 mg/dL Normal 3.5-7.[address] [facility] Comment on above: Performed By: #### U DINA, LIPID, TSH, BNP, CMP, T7 #### [facility] [address] [place], [place] [address] Dr. Suzie Brooks US KIDNEYSon 12-18-2021 US [...] BEHZAD CARRASQUILLO Date: 2021-12-18 09:51 Normal [facility] XR KUB 1 VIEWon 11-21-2021 XR [...] by: BEHZAD CARRASQUILLO Date: 2021-11-21 09:45 Normal [facility] XR KUBon 11-15-2021 XR KUB [facility] [place] [address] [place] [address] XRay Report Signed Patient: Rizwan Aparicio MR#: [id number] 4 : 1950 Acct:[id number] Age/Sex: 71 / M ADM Date: 11/15/21 Loc: [place] Room: Type: [facility] Attending Dr: Micki Zeng MD Ordering Provider: [...] Hancock Jr., M.D.11/15/2021 10:43 AM Dictation Location: [place] [address] Transcribed By: [facility] 11/15/21 1043 Dictated By: Yared Hancock Jr, MD 11/15/21 1039 Signed By: 11/15/21 1043 Normal [facility] SARS-CoV-2 (COVID-19) RNA SUKHJINDER+probe Ql (Unsp spec) Negative Normal Negative [facility] Comment on above: Order Comment: 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 This test has [...] is terminated or revoked sooner. PERFORMED BY: [place] [address] PATHOLOGIST [employer] ASBESTOS JIA MINAYA M.D. Performed By: #### C OVID 19 [facility] #### [address] COVID-19 Positive/NegativeOr dered By: Micki Zeng on 11-13-2021 SARS-CoV-2 (COVID-19) N gene SUKHJINDER+probe Ql (Resp) Negative Negative [facility] Comment on above: Testing for SARS-CoV -2 by RT-PCRThis test was developed and its performance characteristics determined by [employer] ([employer]) and validated at the [facility]. This test has [...] sooner. CALCULI, URINARYon 2 2,8 Dihydroxyadenine Normal [facility] Comment on above: Performed By: #### U DINA, LIPID, TSH, BNP, CMP, T7 #### [facility] [address] [address] [address] Suzie Brooks Ammonium Acid Urate Normal [facility] Comment on above: Performed By: #### U DINA, LIPID, TSH, BNP, CMP, T7 #### [facility] [address] [address] [address] Suzie Brooks Bilirubin Ql (U) [facility] Comment on above: Performed By: #### U DINA, LIPID, TSH, BNP, CMP, T7 #### [facility] [address] [address] [address] Suzie Brooks Ca Oxalate Dihydrate Normal [facility] Comment on above: Performed By: #### U DINA, LIPID, TSH, BNP, CMP, T7 #### [facility] [address] [address] [address] Suzie Brooks CaHPO4 (Brushite) [facility] Comment on above: Performed By: #### U DINA, LIPID, TSH, BNP, CMP, T7 #### [facility] [address] [address] [address] Suzie Brooks Calcium Bilirubinate Normal [facility] Comment on above: Performed By: #### U DINA, LIPID, TSH, BNP, CMP, T7 #### [facility] [address] [address] [address] Suzie Brooks Calcium Carbonate Normal [facility] Comment on above: Performed By: #### U DINA, LIPID, TSH, BNP, CMP, T7 #### [facility] [address] [address] [address] Suzie Brooks Calcium Oxalate Monohydrate 70 % Normal [facility] Comment on above: Performed By: #### U DINA, LIPID, TSH, BNP, CMP, T7 #### [facility] [address] [address] [address] Suzie Brooks Calcium Palmitate Normal [facility] Comment on above: Performed By: #### U DINA, LIPID, TSH, BNP, CMP, T7 #### [facility] [address] [address] [address] Suzie Brooks Calcium Phosphate Normal [facility] Comment on above: Performed By: #### U DINA, LIPID, TSH, BNP, CMP, T7 #### [facility] [address] [address] [address] Suzie Brooks Calcium Stearate Normal [facility] Comment on above: Performed By: #### U DINA, LIPID, TSH, BNP, CMP, T7 #### [facility] [address] [address] [address] Suzie Brooks Carbonate Apatite Normal [facility] Comment on above: Performed By: #### U DINA, LIPID, TSH, BNP, CMP, T7 #### [facility] [address] [address] [address] Suzie Brooks Cellular Material Normal [facility] Comment on above: Performed By: #### U DINA, LIPID, TSH, BNP, CMP, T7 #### [facility] [address] [address] [address] Suzie Brooks Cholesterol [facility] Comment on above: Performed By: #### U DINA, LIPID, TSH, BNP, CMP, T7 #### [facility] [address] [address] [address] Suzie Brooks Color (U) Brown Normal [facility] Comment on above: Performed By: #### U DINA, LIPID, TSH, BNP, CMP, T7 #### [facility] [address] [address] [address] Suzie Brooks Comment [facility] Comment on above: Performed By: #### U DINA, LIPID, TSH, BNP, CMP, T7 #### [facility] [address] [address] [address] Suzie Brooks Comment: Comment Normal [facility] Comment on above: Result Comment: Fantasma baez questions regarding Calculi Analysis contact [facility] at: [phone]. Performed By: #### U DINA, LIPID, TSH, BNP, CMP, T7 #### [facility] [address] [address] [address] Suzie Brooks Composition Comment [facility] Comment on above: Result Comment: Perc entage (Represents the % composition) Performed By: #### U DINA, LIPID, TSH, BNP, CMP, T7 #### [facility] [address] [address] [address] Suzie Brooks Cystine [facility] Comment on above: Performed By: #### U DINA, LIPID, TSH, BNP, CMP, T7 #### [facility] [address] [place] [address] Dr. Suzie Brooks Disclaimer: Comment Normal [facility] Comment on above: Result Comment: This test was developed and its performance characteristics determined by [facility]. It has not been cleared or approved by the Food and Drug Administration. Performed By: #### U DINA, LIPID, TSH, BNP, CMP, T7 #### [facility] [address] [place] [address] Dr. Suzie Brooks Dried Blood Normal [facility] Comment on above: Performed By: #### U DINA, LIPID, TSH, BNP, CMP, T7 #### [facility] [address] [place] [address] Dr. Suzie Brooks Drug or Metabolite Normal [facility] Comment on above: Performed By: #### U DINA, LIPID, TSH, BNP, CMP, T7 #### [facility] [address] [address] [address] Suzie Brooks Hydroxyapatite Normal [facility] Comment on above: Performed By: #### U DINA, LIPID, TSH, BNP, CMP, T7 #### [facility] [address] [place] [address] Dr. Suzie Brooks Mg NH4 PO4 (Struvite) [facility] Comment on above: Performed By: #### U DINA, LIPID, TSH, BNP, CMP, T7 #### [facility] [address] [place] [address] Dr. Suzie Brooks MgHPO4 (Newberyite) Normal [facility] Comment on above: Performed By: #### U DINA, LIPID, TSH, BNP, CMP, T7 #### [facility] [address] [address] [address] Suzie Brooks Other component(s) Normal [facility] Comment on above: Performed By: #### U DINA, LIPID, TSH, BNP, CMP, T7 #### [facility] [address] [address] [address] Suzie Brooks PDF . Normal [facility] Comment on above: Performed By: #### U DINA, LIPID, TSH, BNP, CMP, T7 #### [facility] [address] [address] [address] Suzie Brooks Photo Comment [facility] Comment on above: Result Comment: Phot ograph will follow under a separate cover Performed By: #### U DINA, LIPID, TSH, BNP, CMP, T7 #### [facility] [address] [address] [address] Suzie Brooks Please note: Comment Normal [facility] Comment on above: Result Comment: Calc shamika report will follow via computer, mail or slitter scorer cut off operator delivery. Performed By: #### U DINA, LIPID, TSH, BNP, CMP, T7 #### [facility] [address] [address] [address] Suzie Brooks Size 3x2 [facility] Comment on above: Result Comment: Mult iple pieces received. Dimensions of the largest piece reported. Performed By: #### U DINA, LIPID, TSH, BNP, CMP, T7 #### [facility] [address] [address] [address] Suzie Boroks Sodium Acid Urate Normal [facility] Comment on above: Performed By: #### U DINA, LIPID, TSH, BNP, CMP, T7 #### [facility] [address] [address] [address] Suzie Brooks Source Comment [facility] Comment on above: Result Comment: Jessica Reese Performed By: #### U DINA, LIPID, TSH, BNP, CMP, T7 #### [facility] [address] [address] [address] Suzie Brooks Triamterene Normal [facility] Comment on above: Performed By: #### U DINA, LIPID, TSH, BNP, CMP, T7 #### [facility] [address] [address] [address] Suzie Brooks Uric Acid 30 % Normal [facility] Comment on above: Performed By: #### U DINA, LIPID, TSH, BNP, CMP, T7 #### [facility] [address] [address] [address] Suzie Brooks Uric Acid Dihydrate Normal [facility] Comment on above: Performed By: #### U DNIA, LIPID, TSH, BNP, CMP, T7 #### [facility] [address] [address] [address] Suzie Brooks Weight 12 mg Normal [facility] Comment on above: Performed By: #### U DINA, LIPID, TSH, BNP, CMP, T7 #### [facility] [address] [address] [address] Suzie Brooks Xanthine Normal [facility] Comment on above: Performed By: #### U DINA, LIPID, TSH, BNP, CMP, T7 #### [facility] [address] [address] [address] Suzie Brooks XR KUB 1 VIEWon [...] by: RAFAEL GRAVES Date: 2021-11-12 13:18 Normal [facility] XR CHEST 2 Von 11-08-2021 XR [...] CARLOS GROSS Date: 2021-11-08 15:50 Normal [facility] CBC AUTO DIFFon 11-07-2021 BASO # 0.0 103/ul Normal 0.0-0.1 [facility] Comment on above: Performed By: #### U DINA, LIPID, TSH, BNP, CMP, T7 #### [facility] [address] [place] [address] Dr. Suzie Brooks Basophils/100 WBC (Bld) 0.2 % Normal 0.2-2.0 [facility] Comment on above: Performed By: #### U DINA, LIPID, TSH, BNP, CMP, T7 #### [facility] [address] [address] [address] Suzie Brooks EO # 0.0 103/ul Normal 0.0-0.7 [facility] Comment on above: Performed By: #### U DINA, LIPID, TSH, BNP, CMP, T7 #### [facility] [address] [place] [address] Dr. Suzie Brooks Eosinophils/100 WBC (Bld) 0.0 % Critically low 0.9-7.0 [facility] Comment on above: Performed By: #### U DINA, LIPID, TSH, BNP, CMP, T7 #### [facility] [address] [address] [address] Suzie Brooks Erythrocyte distribution width (RBC) [Ratio] 14.0 % Normal 11.0-15.0 [facility] Comment on above: Performed By: #### U DINA, LIPID, TSH, BNP, CMP, T7 #### [facility] [address] [place] [address] Dr. Suzie Brooks Hematocrit (Bld) [Volume fraction] 41.8 % Critically low 42.0-54.0 [facility] Comment on above: Performed By: #### U DINA, LIPID, TSH, BNP, CMP, T7 #### [facility] [address] [address] [address] Suzie Brooks Hemoglobin (Bld) [Mass/Vol] 13.7 g/dL Critically low 14.0-18.0 [facility] Comment on above: Performed By: #### U DINA, LIPID, TSH, BNP, CMP, T7 #### [facility] [address] [address] [address] Suzie Brooks IG # 0.14 10e3/ul Critically high 0.00-0.03 [facility] Comment on above: Performed By: #### U DINA, LIPID, TSH, BNP, CMP, T7 #### [facility] [address] [address] [address] Suzie Brooks IG % 0.9 % Critically high 0.0-0.5 [facility] Comment on above: Performed By: #### U DINA, LIPID, TSH, BNP, CMP, T7 #### [facility] [address] [address] [address] Suzie Brooks LYMPH # 1.6 103/ul Normal 1.2-3.8 [facility] Comment on above: Performed By: #### U DINA, LIPID, TSH, BNP, CMP, T7 #### [facility] [address] [address] [address] Suzie Brooks Lymphocytes/100 WBC (Bld) 10.2 % Critically low 20.5-60.0 [facility] Comment on above: Performed By: #### U DINA, LIPID, TSH, BNP, CMP, T7 #### [facility] [address] [address] [address] Suzie Brooks MANUAL DIFF REQ NO Normal [facility] Comment on above: Performed By: #### U DINA, LIPID, TSH, BNP, CMP, T7 #### [facility] [address] [address] [address] Suzie Brooks MCH (RBC) [Entitic mass] 28.8 pg Normal 25.9-34.0 [facility] Comment on above: Performed By: #### U DINA, LIPID, TSH, BNP, CMP, T7 #### [facility] [address] [place] [address] Dr. Suzie Brooks MCHC (RBC) [Mass/Vol] 32.8 g/dL Normal 29.9-35.2 [facility] Comment on above: Performed By: #### U DINA, LIPID, TSH, BNP, CMP, T7 #### [facility] [address] [address] [address] Suzie Brooks MCV (RBC) [Entitic vol] 87.8 fL Normal 80.0-94.0 [facility] Comment on above: Performed By: #### U DINA, LIPID, TSH, BNP, CMP, T7 #### [facility] [address] [place] [address] Dr. Suzie Brooks MONO # 1.0 103/ul Critically high 0.3-0.8 [facility] Comment on above: Performed By: #### U DINA, LIPID, TSH, BNP, CMP, T7 #### [facility] [address] [place] [address] Dr. Suzie Brooks Monocytes/100 WBC (Bld) 6.6 % Normal 1.7-12.0 [facility] Comment on above: Performed By: #### U DINA, LIPID, TSH, BNP, CMP, T7 #### [facility] [address] [place] [address] Dr. Suzie Brooks NEUT # 13.0 103/ul Critically high 1.4-6.[address] [facility] Comment on above: Performed By: #### U DINA, LIPID, TSH, BNP, CMP, T7 #### [facility] [address] [place] [address] Dr. Suzie Brooks Neutrophils/100 WBC (Bld) 82.1 % Critically high 43.0-75.0 [facility] Comment on above: Performed By: #### U DINA, LIPID, TSH, BNP, CMP, T7 #### [facility] [address] [place] [address] Dr. Suzie Brooks Platelet mean volume (Bld) [Entitic vol] 9.3 fL Critically low 9.5-13.5 [facility] Comment on above: Performed By: #### U DINA, LIPID, TSH, BNP, CMP, T7 #### [facility] [address] [place] [address] Dr. Suzie Brooks PLT 301 103/ul Normal 150-450 [facility] Comment on above: Performed By: #### U DINA, LIPID, TSH, BNP, CMP, T7 #### [facility] [address] [place] [address] Dr. Suzie Brooks RBC 4.76 106/ul Normal 4.70-6.10 [facility] Comment on above: Performed By: #### U DINA, LIPID, TSH, BNP, CMP, T7 #### [facility] [address] [place] [address] Dr. Suzie Brooks WBC 15.9 103/ul Critically high 4.0-11.0 [facility] Comment on above: Performed By: #### U DINA, LIPID, TSH, BNP, CMP, T7 #### [facility] [address] [place] [address] Dr. Suzie Brooks POINT OF CARE GLUCOSEon 10-11 Glucose [Mass/Vol] 128 mg/dL Critically high 74-106 [facility] Comment on above: Performed By: #### U DINA, LIPID, TSH, BNP, CMP, T7 #### [facility] [address] [place] [address] Dr. Suzie Brooks PROF 14(COMP METB)on 022 Albumin [Mass/Vol] 3.1 g/dL Critically low 3.4-5.0 [facility] Comment on above: Performed By: #### M AG24 #### [facility] [address] [place] [address] Dr. Suzie Brooks Albumin/Globulin [Mass ratio] 0.9 {ratio} Normal [facility] Comment on above: Performed By: #### M AG24 #### [facility] [address] [place] [address] Dr. Suzie Brooks ALP [Catalytic activity/Vol] 52 U/L Normal 46-116 [facility] Comment on above: Performed By: #### M AG24 #### [facility] [address] [place] [address] Dr. Suzie Brooks ALT [Catalytic activity/Vol] 39 U/L Normal 16-63 [facility] Comment on above: Performed By: #### M AG24 #### [facility] [address] [address] [address] Suzie Brooks Anion gap [Moles/Vol] 14.7 mmol/L Normal [facility] Comment on above: Performed By: #### M AG24 #### [facility] [address] [place] [address] Dr. Suzie Brooks AST [Catalytic activity/Vol] 27 U/L Normal 15-37 [facility] Comment on above: Performed By: #### M AG24 #### [facility] [address] [place] [address] Dr. Suzie Brooks Bilirubin [Mass/Vol] 0.4 mg/dL Normal 0.2-1.3 [facility] [facility] Comment on above: Performed By: #### M AG24 #### [facility] [address] [place] [address] Dr. Suzie Brooks Calcium [Mass/Vol] 7.7 mg/dL Critically low 8.5-10.1 [facility] Comment on above: Performed By: #### M AG24 #### [facility] [address] [place] [address] Dr. Suzie Brooks Chloride [Moles/Vol] 104 mmol/L Normal 98-107 [facility] Comment on above: Performed By: #### M AG24 #### [facility] [address] [address] [address] Suzie Brooks CO2 [Moles/Vol] 23.4 mmol/L Normal 22.0-30.0 [facility] Comment on above: Performed By: #### M AG24 #### [facility] [address] [place] [address] Dr. Suzie Brooks Creatinine [Mass/Vol] 1.03 mg/dL Normal 0.66-1.25 [facility] Comment on above: Performed By: #### M AG24 #### [facility] [address] [address] [address] Suzie Brooks EGFR-AF NAMIBIAN >60 Normal >=60 [facility] Comment on above: Performed By: #### M AG24 #### [facility] [address] [address] [address] Suzie Brooks EGFR-NON AF NAMIBIAN >60 Normal >=60 [facility] Comment on above: Performed By: #### M AG24 #### [facility] [address] [address] [address] Suzie Brooks Globulin (S) [Mass/Vol] 3.5 g/dL Normal [facility] Comment on above: Performed By: #### M AG24 #### [facility] [address] [place] [address] Dr. Suzie Brooks Glucose [Mass/Vol] 142 mg/dL Critically high 74-106 [facility] Comment on above: Performed By: #### M AG24 #### [facility] [address] [address] [address] Suzie Brooks Potassium [Moles/Vol] 4.1 mmol/L Normal 3.4-5.0 [facility] Comment on above: Performed By: #### M AG24 #### [facility] [address] [place] [address] Dr. Suzie Brooks Protein [Mass/Vol] 6.6 g/dL Normal 6.1-8.2 [facility] Comment on above: Performed By: #### M AG24 #### [facility] [address] [place] [address] Dr. Suzie Brooks Sodium [Moles/Vol] 138 mmol/L Normal 137-145 [facility] Comment on above: Performed By: #### M AG24 #### [facility] [address] [place] [address] Dr. Suzie Brooks Urea nitrogen [Mass/Vol] 15.0 mg/dL Normal 7.0-18.0 [facility] Comment on above: Performed By: #### M AG24 #### [facility] [address] [place] [address] Dr. Suzie Brooks Urea nitrogen/Creatinine [Mass ratio] 14.6 mg/mg Normal [facility] Comment on above: Performed By: #### M AG24 #### [facility] [address] [place] [address] Dr. Suzie Brooks CBC AUTO DIFFon 11-06-2021 BASO # 0.1 103/ul Normal 0.0-0.1 [facility] Comment on above: Performed By: #### U DINA, LIPID, TSH, BNP, CMP, T7 #### [facility] [address] [place] [address] Dr. Suzie Brooks Basophils/100 WBC (Bld) 0.5 % Normal 0.2-2.0 [facility] Comment on above: Performed By: #### U DINA, LIPID, TSH, BNP, CMP, T7 #### [facility] [address] [place] [address] Dr. Suzie Brooks EO # 0.3 103/ul Normal 0.0-0.7 [facility] Comment on above: Performed By: #### U DINA, LIPID, TSH, BNP, CMP, T7 #### [facility] [address] [place] [address] Dr. Suzie Brooks Eosinophils/100 WBC (Bld) 2.1 % Normal 0.9-7.0 [facility] Comment on above: Performed By: #### U DINA, LIPID, TSH, BNP, CMP, T7 #### [facility] [address] [place] [address] Dr. Suzie Brooks Erythrocyte distribution width (RBC) [Ratio] 13.8 % Normal 11.0-15.0 [facility] Comment on above: Performed By: #### U DINA, LIPID, TSH, BNP, CMP, T7 #### [facility] [address] [place] [address] Dr. Suzie Brooks Hematocrit (Bld) [Volume fraction] 46.9 % Normal 42.0-54.0 [facility] Comment on above: Performed By: #### U DINA, LIPID, TSH, BNP, CMP, T7 #### [facility] [address] [place] [address] Dr. Suzie Brooks Hemoglobin (Bld) [Mass/Vol] 15.4 g/dL Normal 14.0-18.0 [facility] Comment on above: Performed By: #### U DINA, LIPID, TSH, BNP, CMP, T7 #### [facility] [address] [place] [address] Dr. Suzie Brooks IG # 0.05 10e3/ul Critically high 0.00-0.03 [facility] Comment on above: Performed By: #### U DINA, LIPID, TSH, BNP, CMP, T7 #### [facility] [address] [place] [address] Dr. Suzie Brooks IG % 0.4 % Normal 0.0-0.5 [facility] Comment on above: Performed By: #### U DINA, LIPID, TSH, BNP, CMP, T7 #### [facility] [address] [place] [address] Dr. Suzie Brooks LYMPH # 2.8 103/ul Normal 1.2-3.8 [facility] Comment on above: Performed By: #### U DINA, LIPID, TSH, BNP, CMP, T7 #### [facility] [address] [place] [address] Dr. Suzie Brooks Lymphocytes/100 WBC (Bld) 22.5 % Normal 20.5-60.0 [facility] Comment on above: Performed By: #### U DINA, LIPID, TSH, BNP, CMP, T7 #### [facility] [address] [place] [address] Dr. Suzie Brooks MANUAL DIFF REQ NO Normal [facility] Comment on above: Performed By: #### U DINA, LIPID, TSH, BNP, CMP, T7 #### [facility] [address] [place] [address] Dr. Suzie Brooks MCH (RBC) [Entitic mass] 28.6 pg Normal 25.9-34.0 [facility] Comment on above: Performed By: #### U DINA, LIPID, TSH, BNP, CMP, T7 #### [facility] [address] [place] [address] Dr. Suzie Brooks MCHC (RBC) [Mass/Vol] 32.8 g/dL Normal 29.9-35.2 [facility] Comment on above: Performed By: #### U DINA, LIPID, TSH, BNP, CMP, T7 #### [facility] [address] [place] [address] Dr. Suzie Brooks MCV (RBC) [Entitic vol] 87.0 fL Normal 80.0-94.0 [facility] Comment on above: Performed By: #### U DINA, LIPID, TSH, BNP, CMP, T7 #### [facility] [address] [place] [address] Dr. Suzie Brooks MONO # 0.9 103/ul Critically high 0.3-0.8 [facility] Comment on above: Performed By: #### U DINA, LIPID, TSH, BNP, CMP, T7 #### [facility] [address] [place] [address] Dr. Suzie Brooks Monocytes/100 WBC (Bld) 6.9 % Normal 1.7-12.0 [facility] Comment on above: Performed By: #### U DINA, LIPID, TSH, BNP, CMP, T7 #### [facility] [address] [place] [address] Dr. Suzie Brooks NEUT # 8.4 103/ul Critically high 1.4-6.5 [facility] Comment on above: Performed By: #### U DINA, LIPID, TSH, BNP, CMP, T7 #### [facility] [address] [place] [address] Dr. Suzie Brooks Neutrophils/100 WBC (Bld) 67.6 % Normal 43.0-75.0 [facility] Comment on above: Performed By: #### U DINA, LIPID, TSH, BNP, CMP, T7 #### [facility] [address] [place] [address] Dr. Suzie Brooks Platelet mean volume (Bld) [Entitic vol] 9.6 fL Normal 9.5-13.5 [facility] Comment on above: Performed By: #### U DINA, LIPID, TSH, BNP, CMP, T7 #### [facility] [address] [place] [address] Dr. Suzie Brooks PLT 284 103/ul Normal 150-450 [facility] Comment on above: Performed By: #### U DINA, LIPID, TSH, BNP, CMP, T7 #### [facility] [address] [place] [address] Dr. Suzie Brooks RBC 5.39 106/ul Normal 4.70-6.10 [facility] Comment on above: Performed By: #### U DINA, LIPID, TSH, BNP, CMP, T7 #### [facility] [address] [place] [address] Dr. Suzie Brooks WBC 12.5 103/ul Critically high 4.0-11.0 [facility] Comment on above: Performed By: #### U DINA, LIPID, TSH, BNP, CMP, T7 #### [facility] [address] [place] [address] Dr. Suzie Brooks CULTURE BLOODon 11-06-2021 Microscopic examination of blood, culture Culture Observations: NO GROWTH AT 5 DAYS. Normal [facility] Comment on above: Performed By: #### M AG24 #### [facility] [address] [place] [address] Dr. Suzie Brooks CULTURE URINEon 11-06-2021 CULTURE URINE Culture Observations : NO GROWTH. Normal [facility] Comment on above: Performed By: #### M AG24 #### [facility] [address] [place] [address] Dr. Suzie Brooks Covid-19 PCR (CVDTB)on 10-10 SARS-CoV-2 (COVID-19) RNA SUKHJINDER+probe Ql (Unsp spec) Not detected Normal NOT DETECTED [facility] Comment on above: Result Comment: When diagnostic testing is negative, the possibility of a false negative should be considered in the context of a patient's recent exposures and the presence of clinical signs and symptoms consistent with SARS-CoV-2. This test is not yet approved or cleared by the [place] Food and Drug Administration (FDA). This test was developed by [employer], [place], [place]. The performance characteristics of this test were validated by [facility]. The results are not intended to be used as the sole means for clinical diagnosis or patient management decisions. [facility] is authorized under Clinical Laboratory Improvement [...] for this test is supported by the Deployment Manager of Health and Human Service's declaration that [...] DINA, LIPID, TSH, BNP, CMP, T7 #### [facility] [address] [place] [address] Dr. Suzie Brooks ER URINE PROFILEon 2 Bilirubin Ql (U) Negative Normal NEGATIVE [facility] Comment on above: Performed By: #### U DINA, LIPID, TSH, BNP, CMP, T7 #### [facility] [address] [place] [address] Dr. Suzie Brooks Clarity (U) CLEAR Normal CLEAR [facility] Comment on above: Performed By: #### U DINA, LIPID, TSH, BNP, CMP, T7 #### [facility] [address] [place] [address] Dr. Suzie Brooks Color (U) YELLOW Normal YELLOW [facility] Comment on above: Performed By: #### U DINA, LIPID, TSH, BNP, CMP, T7 #### [facility] [address] [place] [address] Dr. Suzie Brooks ERUAHD A micrscopic examina tion will be performed if indicated. Normal [facility] Comment on above: Performed By: #### U DINA, LIPID, TSH, BNP, CMP, T7 #### [facility] [address] [address] [address] Suzie Brooks Glucose Ql (U) Negative Normal NEGATIVE [facility] Comment on above: Performed By: #### U DINA, LIPID, TSH, BNP, CMP, T7 #### [facility] [address] [address] [address] Suzie Brooks Hemoglobin Ql (U) LARGE Abnormal NEGATIVE [facility] Comment on above: Performed By: #### U DINA, LIPID, TSH, BNP, CMP, T7 #### [facility] [address] [place] [address] Dr. Suzie Brooks Ketones Ql (U) Negative Normal NEGATIVE [facility] Comment on above: Performed By: #### U DINA, LIPID, TSH, BNP, CMP, T7 #### [facility] [address] [place] [address] Dr. Suzie Brooks LEUKOCYTES TRACE Abnormal NEGATIVE [facility] Comment on above: Performed By: #### U DINA, LIPID, TSH, BNP, CMP, T7 #### [facility] [address] [place] [address] Dr. Suzie Brooks Nitrite Ql (U) Negative Normal NEGATIVE [facility] Comment on above: Performed By: #### U DINA, LIPID, TSH, BNP, CMP, T7 #### [facility] [address] [place] [address] Dr. Suzie Brooks pH (U) 5.0 [pH] Normal 5-9 [facility] Comment on above: Performed By: #### U DINA, LIPID, TSH, BNP, CMP, T7 #### [facility] [address] [address] [address] Suzie Brooks Protein (U) [Mass/Vol] 100 mg/dL Abnormal NEGATIVE/ TRACE [facility] Comment on above: Performed By: #### U DINA, LIPID, TSH, BNP, CMP, T7 #### [facility] [address] [place] [address] Dr. Suzie Brooks SPEC GRAVITY 1.030 Abnormal 1.005-<=1.02 5 [facility] Comment on above: Performed By: #### U DINA, LIPID, TSH, BNP, CMP, T7 #### [facility] [address] [address] [address] Suzie Brooks UR MICRO IND INDICATED Normal [facility] Comment on above: Performed By: #### U DINA, LIPID, TSH, BNP, CMP, T7 #### [facility] [address] [address] [address] Suzie Brooks Urobilinogen Qn (U) 0.2 {Behzad'U}/dL Normal 0.2 - 1. 0 [facility] Comment on above: Performed By: #### U DINA, LIPID, TSH, BNP, CMP, T7 #### [facility] [address] [address] [address] Suzie Brooks LACTATE/LACTIC ACIDon 2021 Lactate [Moles/Vol] 1.0 mmol/L Normal 0.7-2.0 [facility] Comment on above: Performed By: #### U DINA, LIPID, TSH, BNP, CMP, T7 #### [facility] [address] [place] [address] Dr. Suzie Brooks PROF 14(COMP METB)on 022 Albumin [Mass/Vol] 3.8 g/dL Normal 3.4-5.0 [facility] Comment on above: Performed By: #### U DINA, LIPID, TSH, BNP, CMP, T7 #### [facility] [address] [place] [address] Dr. Suzie Brooks Albumin/Globulin [Mass ratio] 1.0 {ratio} Normal [facility] Comment on above: Performed By: #### U DINA, LIPID, TSH, BNP, CMP, T7 #### [facility] [address] [place] [address] Dr. Suzie Brooks ALP [Catalytic activity/Vol] 66 U/L Normal 46-116 [facility] Comment on above: Performed By: #### U DINA, LIPID, TSH, BNP, CMP, T7 #### [facility] [address] [place] [address] Dr. Suzie Brooks ALT [Catalytic activity/Vol] 52 U/L Normal 16-63 [facility] Comment on above: Performed By: #### U DINA, LIPID, TSH, BNP, CMP, T7 #### [facility] [address] [address] [address] Suzie Brooks Anion gap [Moles/Vol] 14.7 mmol/L Normal [facility] Comment on above: Performed By: #### U DINA, LIPID, TSH, BNP, CMP, T7 #### [facility] [address] [address] [address] Suzie Brooks AST [Catalytic activity/Vol] 40 U/L Critically high 15-37 [facility] Comment on above: Performed By: #### U DINA, LIPID, TSH, BNP, CMP, T7 #### [facility] [address] [place] [address] Dr. Suzie Brooks Bilirubin [Mass/Vol] 0.6 mg/dL Normal 0.2-1.3 [facility] Comment on above: Performed By: #### U DINA, LIPID, TSH, BNP, CMP, T7 #### [facility] [address] [address] [address] Suzie Brooks Calcium [Mass/Vol] 8.2 mg/dL Critically low 8.5-10.1 [facility] Comment on above: Performed By: #### U DINA, LIPID, TSH, BNP, CMP, T7 #### [facility] [address] [address] [address] Suzie Brooks Chloride [Moles/Vol] 102 mmol/L Normal 98-107 [facility] Comment on above: Performed By: #### U DINA, LIPID, TSH, BNP, CMP, T7 #### [facility] [address] [address] [address] Suzie Brooks CO2 [Moles/Vol] 27.4 mmol/L Normal 22.0-30.[address] [facility] Comment on above: Performed By: #### U DINA, LIPID, TSH, BNP, CMP, T7 #### [facility] [address] [place] [address] Dr. Suzie Brooks Creatinine [Mass/Vol] 1.05 mg/dL Normal 0.66-1.25 [facility] Comment on above: Performed By: #### U DINA, LIPID, TSH, BNP, CMP, T7 #### [facility] [address] [address] [address] Suzie Brooks EGFR-AF NAMIBIAN >60 Normal >=60 [facility] Comment on above: Performed By: #### U DINA, LIPID, TSH, BNP, CMP, T7 #### [facility] [address] [address] [address] Suzie Brooks EGFR-NON AF NAMIBIAN >60 Normal >=60 [facility] Comment on above: Performed By: #### U DINA, LIPID, TSH, BNP, CMP, T7 #### [facility] [address] [address] [address] Suzie Brooks Globulin (S) [Mass/Vol] 3.7 g/dL Normal [facility] Comment on above: Performed By: #### U DINA, LIPID, TSH, BNP, CMP, T7 #### [facility] [address] [place] [address] Dr. Suzie Brooks Glucose [Mass/Vol] 124 mg/dL Critically high 74-106 [facility] Comment on above: Performed By: #### U DINA, LIPID, TSH, BNP, CMP, T7 #### [facility] [address] [address] [address] Suzie Brooks Potassium [Moles/Vol] 4.1 mmol/L Normal 3.4-5.0 [facility] Comment on above: Performed By: #### U DINA, LIPID, TSH, BNP, CMP, T7 #### [facility] [address] [address] [address] Suzie Brooks Protein [Mass/Vol] 7.5 g/dL Normal 6.1-8.2 [facility] Comment on above: Performed By: #### U DINA, LIPID, TSH, BNP, CMP, T7 #### [facility] [address] [place] [address] Dr. Suzie Brooks Sodium [Moles/Vol] 140 mmol/L Normal 137-145 [facility] Comment on above: Performed By: #### U DINA, LIPID, TSH, BNP, CMP, T7 #### [facility] [address] [address] [address] Suzie Brooks Urea nitrogen [Mass/Vol] 16.0 mg/dL Normal 7.0-18.0 [facility] Comment on above: Performed By: #### U DINA, LIPID, TSH, BNP, CMP, T7 #### [facility] [address] [address] [address] Suzie Brooks Urea nitrogen/Creatinine [Mass ratio] 15.2 mg/mg Normal [facility] Comment on above: Performed By: #### U DINA, LIPID, TSH, BNP, CMP, T7 #### [facility] [address] [address] [address] Suzie Brooks URINE MICROSCOPIC ONLYon BACTERIA SMALL Abnormal NONE SEEN [facility] Comment on above: Performed By: #### U DINA, LIPID, TSH, BNP, CMP, T7 #### [facility] [address] [place] [address] Dr. Suzie Brooks Bacteria identified Cx Nom (U) INDICATED Normal [facility] Comment on above: Performed By: #### U DINA, LIPID, TSH, BNP, CMP, T7 #### [facility] [address] [place] [address] Dr. Suzie Brooks CAST NONE SEEN Normal NONE SEEN [facility] Comment on above: Performed By: #### U DINA, LIPID, TSH, BNP, CMP, T7 #### [facility] [address] [address] [address] Suzie Brooks Crystals LM Nom (Urine sed) NONE SEEN Normal NONE SEEN [facility] Comment on above: Performed By: #### U DINA, LIPID, TSH, BNP, CMP, T7 #### [facility] [address] [address] [address] Suzie Brooks Epithelial cells LM Ql (Urine sed) RARE Normal NONE SEEN /RARE [facility] Comment on above: Performed By: #### U DINA, LIPID, TSH, BNP, CMP, T7 #### [facility] [address] [address] [address] Suzie Brooks MUCOUS NONE SEEN Normal NONE SEEN [facility] Comment on above: Performed By: #### U DINA, LIPID, TSH, BNP, CMP, T7 #### [facility] [address] [place], [place] [address] Dr. Suzie Brooks RBC 50-75 Abnormal 0-2 [facility] Comment on above: Performed By: #### U DINA, LIPID, TSH, BNP, CMP, T7 #### [facility] [address] [place], [place] [address] Dr. Suzie Brooks WBC 20-50 Abnormal NONE SEEN [facility] Comment on above: Performed By: #### U DINA, LIPID, TSH, BNP, CMP, T7 #### [facility] [address] [place], [place] [address] Dr. Suzie Brooks XR KUB 1 VIEWon [...] BEHZAD SANTOS Date: 2021-11-06 21:58 Normal [facility] XR KUB 1 VIEW EXAMINATION: XR [...] RAFAEL GRAVES Date: 2021-11-06 08:06 Normal [facility] CBC AUTO DIFFon 11-05-2021 BASO # 0.1 103/ul Normal 0.0-0.1 [facility] Comment on above: Performed By: #### U DINA, LIPID, TSH, BNP, CMP, T7 #### [facility] [address] [address] [address] Suzie Brooks Basophils/100 WBC (Bld) 0.6 % Normal 0.2-2.0 [facility] Comment on above: Performed By: #### U DINA, LIPID, TSH, BNP, CMP, T7 #### [facility] [address] [place] [address] Dr. Suzie Brooks EO # 0.3 103/ul Normal 0.0-0.7 [facility] Comment on above: Performed By: #### U DINA, LIPID, TSH, BNP, CMP, T7 #### [facility] [address] [place] [address] Dr. Suzie Brooks Eosinophils/100 WBC (Bld) 2.2 % Normal 0.9-7.0 [facility] Comment on above: Performed By: #### U DINA, LIPID, TSH, BNP, CMP, T7 #### [facility] [address] [place] [address] Dr. Suzie Brooks Erythrocyte distribution width (RBC) [Ratio] 13.7 % Normal 11.0-15.0 [facility] Comment on above: Performed By: #### U DINA, LIPID, TSH, BNP, CMP, T7 #### [facility] [address] [place] [address] Dr. Suzie Brooks Hematocrit (Bld) [Volume fraction] 49.0 % Normal 42.0-54.0 [facility] Comment on above: Performed By: #### U DINA, LIPID, TSH, BNP, CMP, T7 #### [facility] [address] [place] [address] Dr. Suzie Brooks Hemoglobin (Bld) [Mass/Vol] 15.9 g/dL Normal 14.0-18.0 [facility] Comment on above: Performed By: #### U DINA, LIPID, TSH, BNP, CMP, T7 #### [facility] [address] [place] [address] Dr. Suzie Brooks IG # 0.07 10e3/ul Critically high 0.00-0.03 [facility] Comment on above: Performed By: #### U DINA, LIPID, TSH, BNP, CMP, T7 #### [facility] [address] [place] [address] Dr. Suzie Brooks IG % 0.5 % Normal 0.0-0.5 [facility] Comment on above: Performed By: #### U DINA, LIPID, TSH, BNP, CMP, T7 #### [facility] [address] [place] [address] Dr. Suzie Brooks LYMPH # 3.1 103/ul Normal 1.2-3.8 [facility] Comment on above: Performed By: #### U DINA, LIPID, TSH, BNP, CMP, T7 #### [facility] [address] [place] [address] Dr. Suzie Brooks Lymphocytes/100 WBC (Bld) 23.8 % Normal 20.5-60.0 [facility] Comment on above: Performed By: #### U DINA, LIPID, TSH, BNP, CMP, T7 #### [facility] [address] [place] [address] Dr. Suzie Brooks MANUAL DIFF REQ NO Normal [facility] Comment on above: Performed By: #### U DINA, LIPID, TSH, BNP, CMP, T7 #### [facility] [address] [place] [address] Dr. Suzei Brooks MCH (RBC) [Entitic mass] 28.8 pg Normal 25.9-34.0 [facility] Comment on above: Performed By: #### U DINA, LIPID, TSH, BNP, CMP, T7 #### [facility] [address] [place] [address] Dr. Suzie Brooks MCHC (RBC) [Mass/Vol] 32.4 g/dL Normal 29.9-35.2 [facility] Comment on above: Performed By: #### U DINA, LIPID, TSH, BNP, CMP, T7 #### [facility] [address] [place] [address] Dr. Suzie Brooks MCV (RBC) [Entitic vol] 88.8 fL Normal 80.0-94.0 [facility] Comment on above: Performed By: #### U DINA, LIPID, TSH, BNP, CMP, T7 #### [facility] [address] [address] [address] Suzie Brooks MONO # 0.9 103/ul Critically high 0.3-0.8 [facility] Comment on above: Performed By: #### U DINA, LIPID, TSH, BNP, CMP, T7 #### [facility] [address] [place] [address] Dr. Suzie Brooks Monocytes/100 WBC (Bld) 6.8 % Normal 1.7-12.0 [facility] Comment on above: Performed By: #### U DINA, LIPID, TSH, BNP, CMP, T7 #### [facility] [address] [place] [address] Dr. Suzie Brooks NEUT # 8.7 103/ul Critically high 1.4-6.5 [facility] Comment on above: Performed By: #### U DINA, LIPID, TSH, BNP, CMP, T7 #### [facility] [address] [place] [address] Dr. Suzie Brooks Neutrophils/100 WBC (Bld) 66.1 % Normal 43.0-75.0 [facility] Comment on above: Performed By: #### U DINA, LIPID, TSH, BNP, CMP, T7 #### [facility] [address] [place] [address] Dr. Suzie Brooks Platelet mean volume (Bld) [Entitic vol] 9.4 fL Critically low 9.5-13.5 [facility] Comment on above: Performed By: #### U DINA, LIPID, TSH, BNP, CMP, T7 #### [facility] [address] [place] [address] Dr. Suzie Brooks PLT 278 103/ul Normal 150-450 [facility] Comment on above: Performed By: #### U DINA, LIPID, TSH, BNP, CMP, T7 #### [facility] [address] [place] [address] Dr. Suzie Brooks RBC 5.52 106/ul Normal 4.70-6.10 [facility] Comment on above: Performed By: #### U DINA, LIPID, TSH, BNP, CMP, T7 #### [facility] [address] [place], [place] [address] Dr. Suzie Brooks WBC 13.1 103/ul Critically high 4.0-11.0 [facility] Comment on above: Performed By: #### U DINA, LIPID, TSH, BNP, CMP, T7 #### [facility] [address] [place], [place] [address] ABD/PELVIS WO CONon [...] RAFAEL GRAVES Date: 2021-11-05 11:46 Normal [facility] CULTURE URINEon 11-05-2021 CULTURE URINE Culture Observations : No growth Normal [facility] Comment on above: Performed By: #### M AG24 #### [facility] [address] [place] [address] Dr. Suzie Brooks ER URINE PROFILEon 2 Bilirubin Ql (U) Negative Normal NEGATIVE The [facility] Comment on above: Performed By: #### C VDTBH #### [facility] [address] [place] [address] Dr. Suzie Brooks Clarity (U) CLEAR Normal CLEAR [facility] Comment on above: Performed By: #### C VDTBH #### [facility] [address] [place] [address] Dr. Suzie Brooks Color (U) DK. YELLOW Normal YELLOW [facility] Comment on above: Performed By: #### C VDTBH #### [facility] [address] [place] [address] Dr. Suzie Brooks ERUAHD A micrscopic examina tion will be performed if indicated. Normal [facility] Comment on above: Performed By: #### C VDTBH #### [facility] [address] [place] [address] Dr. Suzie Brooks Glucose Ql (U) Negative Normal NEGATIVE [facility] Comment on above: Performed By: #### C VDTBH #### [facility] [address] [place] [address] Dr. Suzie Brooks Hemoglobin Ql (U) LARGE Abnormal NEGATIVE [facility] Comment on above: Performed By: #### C VDTBH #### [facility] [address] [place] [address] Dr. Suzie Brooks Ketones Ql (U) Negative Normal NEGATIVE [facility] Comment on above: Performed By: #### C VDTBH #### [facility] [address] [place] [address] Dr. Suzie Brooks LEUKOCYTES Negative Normal NEGATIVE [facility] Comment on above: Performed By: #### C VDTBH #### [facility] [address] [place] [address] Dr. Suzie Brooks Nitrite Ql (U) Negative Normal NEGATIVE [facility] Comment on above: Performed By: #### C VDTBH #### [facility] [address] [place] [address] Dr. Suzie Brooks pH (U) 5.0 [pH] Normal 5-9 [facility] Comment on above: Performed By: #### C VDTBH #### [facility] [address] [place] [address] Dr. Suzie Brooks Protein (U) [Mass/Vol] 100 mg/dL Abnormal NEGATIVE/ TRACE [facility] Comment on above: Performed By: #### C VDTBH #### [facility] [address] [place] [address] Dr. Suzie Brooks SPEC GRAVITY >=1.030 Abnormal 1.005-<=1.02 5 [facility] Comment on above: Performed By: #### C VDTBH #### [facility] [address] [place] [address] Dr. Suzie Brooks UR MICRO IND INDICATED Normal [facility] Comment on above: Performed By: #### C VDTBH #### [facility] [address] [place] [address] Dr. Suzie Brooks Urobilinogen Qn (U) 0.2 {Behzad'U}/dL Normal 0.2 - 1. 0 [facility] Comment on above: Performed By: #### C VDTBH #### [facility] [address] [place] [address] Dr. Suzie Brooks PROF 14(COMP METB)on 022 Albumin [Mass/Vol] 3.9 g/dL Normal 3.4-5.0 [facility] Comment on above: Performed By: #### U DINA, LIPID, TSH, BNP, CMP, T7 #### [facility] [address] [place] [address] Dr. Suzie Brooks Albumin/Globulin [Mass ratio] 1.1 {ratio} Normal [facility] Comment on above: Performed By: #### U DINA, LIPID, TSH, BNP, CMP, T7 #### [facility] [address] [place] [address] Dr. Suzie Brooks ALP [Catalytic activity/Vol] 64 U/L Normal 46-116 [facility] Comment on above: Performed By: #### U DINA, LIPID, TSH, BNP, CMP, T7 #### [facility] [address] [place] [address] Dr. Suzie Brooks ALT [Catalytic activity/Vol] 57 U/L Normal 16-63 [facility] Comment on above: Performed By: #### U DINA, LIPID, TSH, BNP, CMP, T7 #### [facility] [address] [place] [address] Dr. Suzie Brooks Anion gap [Moles/Vol] 14.4 mmol/L Normal [facility] Comment on above: Performed By: #### U DINA, LIPID, TSH, BNP, CMP, T7 #### [facility] [address] [place] [address] Dr. Suzie Brooks AST [Catalytic activity/Vol] 51 U/L Critically high 15-37 [facility] Comment on above: Performed By: #### U DINA, LIPID, TSH, BNP, CMP, T7 #### [facility] [address] [place] [address] Dr. Suzie Brooks Bilirubin [Mass/Vol] 0.8 mg/dL Normal 0.2-1.3 [facility] Comment on above: Performed By: #### U DINA, LIPID, TSH, BNP, CMP, T7 #### [facility] [address] [place] [address] Dr. Suzie Brooks Calcium [Mass/Vol] 8.5 mg/dL Normal 8.5-10.1 [facility] Comment on above: Performed By: #### U DINA, LIPID, TSH, BNP, CMP, T7 #### [facility] [address] [place] [address] Dr. Suzie Brooks Chloride [Moles/Vol] 103 mmol/L Normal 98-107 [facility] Comment on above: Performed By: #### U DINA, LIPID, TSH, BNP, CMP, T7 #### [facility] [address] [place] [address] Dr. Suzie Brooks CO2 [Moles/Vol] 26.8 mmol/L Normal 22.0-30.[address] [facility] Comment on above: Performed By: #### U DINA, LIPID, TSH, BNP, CMP, T7 #### [facility] [address] [address] [address] Suzie Brooks Creatinine [Mass/Vol] 0.98 mg/dL Normal 0.66-1.25 [facility] Comment on above: Performed By: #### U DINA, LIPID, TSH, BNP, CMP, T7 #### [facility] [address] [place] [address] Dr. Suzie Brooks EGFR-AF NAMIBIAN >60 Normal >=60 [facility] Comment on above: Performed By: #### U DINA, LIPID, TSH, BNP, CMP, T7 #### [facility] [address] [place] [address] Dr. Suzie Brooks EGFR-NON AF NAMIBIAN >60 Normal >=60 [facility] Comment on above: Performed By: #### U DINA, LIPID, TSH, BNP, CMP, T7 #### [facility] [address] [place] [address] Dr. Suzie Brooks Globulin (S) [Mass/Vol] 3.7 g/dL Normal [facility] Comment on above: Performed By: #### U DINA, LIPID, TSH, BNP, CMP, T7 #### [facility] [address] [place] [address] Dr. Suzie Brooks Glucose [Mass/Vol] 118 mg/dL Critically high 74-106 [facility] Comment on above: Performed By: #### U DINA, LIPID, TSH, BNP, CMP, T7 #### [facility] [address] [place] [address] Dr. Suzie Brooks Potassium [Moles/Vol] 4.2 mmol/L Normal 3.4-5.0 [facility] Comment on above: Performed By: #### U DINA, LIPID, TSH, BNP, CMP, T7 #### [facility] [address] [place] [address] Dr. Suzie Brooks Protein [Mass/Vol] 7.6 g/dL Normal 6.1-8.2 [facility] Comment on above: Performed By: #### U DINA, LIPID, TSH, BNP, CMP, T7 #### [facility] [address] [place] [address] Dr. Suzie Brooks Sodium [Moles/Vol] 140 mmol/L Normal 137-145 [facility] Comment on above: Performed By: #### U DINA, LIPID, TSH, BNP, CMP, T7 #### [facility] [address] [place] [address] Dr. Suzie Brooks Urea nitrogen [Mass/Vol] 14.0 mg/dL Normal 7.0-18.0 [facility] Comment on above: Performed By: #### U DINA, LIPID, TSH, BNP, CMP, T7 #### [facility] [address] [place] [address] Dr. Suzie Brooks Urea nitrogen/Creatinine [Mass ratio] 14.3 mg/mg Normal [facility] Comment on above: Performed By: #### U DINA, LIPID, TSH, BNP, CMP, T7 #### [facility] [address] [place] [address] Dr. Suzie Brooks URINE MICROSCOPIC ONLYon BACTERIA MODERATE Abnormal NONE SEEN [facility] Comment on above: Performed By: #### C VDTBH #### [facility] [address] [place] [address] Dr. Suzie Brooks Bacteria identified Cx Nom (U) INDICATED Normal [facility] Comment on above: Performed By: #### C VDTBH #### [facility] [address] [place] [address] Dr. Suzie Brooks CAST SEEN Abnormal NONE SEEN [facility] Comment on above: Performed By: #### C VDTBH #### [facility] [address] [place] [address] Dr. Suzie Brooks Crystals LM Nom (Urine sed) NONE SEEN Normal NONE SEEN [facility] Comment on above: Performed By: #### C VDTBH #### [facility] [address] [place] [address] Dr. Suzie Brooks Epithelial cells LM Ql (Urine sed) RARE Normal NONE SEEN /RARE [facility] Comment on above: Performed By: #### C VDTBH #### [facility] [address] [address] [address] Suzie Brooks HYALINE CAST RARE Normal [facility] Comment on above: Performed By: #### C VDTBH #### [facility] [address] [address] [address] Suzie Brooks MUCOUS NONE SEEN Normal NONE SEEN [facility] Comment on above: Performed By: #### C VDTBH #### [facility] [address] [address] [address] Suzie Brooks RBC (U) [#/Vol] /uL Abnormal 0-2 [facility] Comment on above: Performed By: #### C VDTBH #### [facility] [address] [place] [address] Dr. Suzie Brooks WBC NONE SEEN Normal NONE SEEN [facility] Comment on above: Performed By: #### C VDTBH #### [facility] [address] [place] [address] Dr. Suzie Brooks XR KUB 1 VIEWon [...] BEHZAD CARRASQUILLO Date: 2021-11-01 12:07 Normal [facility] CBC AUTO DIFFon 10-26-2021 BASO # 0.1 103/ul Normal 0.0-0.1 [facility] Comment on above: Performed By: #### U DINA, LIPID, TSH, BNP, CMP, T7 #### [facility] [address] [address] [address] Suzie Brooks Basophils/100 WBC (Bld) 0.7 % Normal 0.2-2.0 [facility] Comment on above: Performed By: #### U DINA, LIPID, TSH, BNP, CMP, T7 #### [facility] [address] [place] [address] Dr. Suzie Brooks EO # 0.2 103/ul Normal 0.0-0.7 [facility] Comment on above: Performed By: #### U DINA, LIPID, TSH, BNP, CMP, T7 #### [facility] [address] [place] [address] Dr. Suzie Brooks Eosinophils/100 WBC (Bld) 1.5 % Normal 0.9-7.0 [facility] Comment on above: Performed By: #### U DINA, LIPID, TSH, BNP, CMP, T7 #### [facility] [address] [place] [address] Dr. Suzie Brooks Erythrocyte distribution width (RBC) [Ratio] 13.9 % Normal 11.0-15.0 [facility] Comment on above: Performed By: #### U DINA, LIPID, TSH, BNP, CMP, T7 #### [facility] [address] [place] [address] Dr. Suzie Brooks Hematocrit (Bld) [Volume fraction] 47.5 % Normal 42.0-54.0 [facility] Comment on above: Performed By: #### U DINA, LIPID, TSH, BNP, CMP, T7 #### [facility] [address] [place] [address] Dr. Suzie Brooks Hemoglobin (Bld) [Mass/Vol] 15.5 g/dL Normal 14.0-18.0 [facility] Comment on above: Performed By: #### U DINA, LIPID, TSH, BNP, CMP, T7 #### [facility] [address] [place] [address] Dr. Suzie Brooks IG # 0.06 10e3/ul Critically high 0.00-0.03 [facility] Comment on above: Performed By: #### U DINA, LIPID, TSH, BNP, CMP, T7 #### [facility] [address] [place] [address] Dr. Suzie Brooks IG % 0.5 % Normal 0.0-0.5 [facility] Comment on above: Performed By: #### U DINA, LIPID, TSH, BNP, CMP, T7 #### [facility] [address] [place] [address] Dr. Suzie Brooks LYMPH # 2.6 103/ul Normal 1.2-3.8 [facility] Comment on above: Performed By: #### U DINA, LIPID, TSH, BNP, CMP, T7 #### [facility] [address] [place] [address] Dr. Suzie Brooks Lymphocytes/100 WBC (Bld) 23.1 % Normal 20.5-60.0 [facility] Comment on above: Performed By: #### U DINA, LIPID, TSH, BNP, CMP, T7 #### [facility] [address] [place] [address] Dr. Suzie Brooks MANUAL DIFF REQ NO Normal [facility] Comment on above: Performed By: #### U DINA, LIPID, TSH, BNP, CMP, T7 #### [facility] [address] [place] [address] Dr. Suzie Brooks MCH (RBC) [Entitic mass] 28.9 pg Normal 25.9-34.0 [facility] Comment on above: Performed By: #### U DINA, LIPID, TSH, BNP, CMP, T7 #### [facility] [address] [place] [address] Dr. Suzie Brooks MCHC (RBC) [Mass/Vol] 32.6 g/dL Normal 29.9-35.2 [facility] Comment on above: Performed By: #### U DINA, LIPID, TSH, BNP, CMP, T7 #### [facility] [address] [place] [address] Dr. Suzie Brooks MCV (RBC) [Entitic vol] 88.5 fL Normal 80.0-94.0 [facility] Comment on above: Performed By: #### U DINA, LIPID, TSH, BNP, CMP, T7 #### [facility] [address] [place] [address] Dr. Suzie Brooks MONO # 0.9 103/ul Critically high 0.3-0.8 [facility] Comment on above: Performed By: #### U DINA, LIPID, TSH, BNP, CMP, T7 #### [facility] [address] [address] [address] Suzie Brooks Monocytes/100 WBC (Bld) 7.9 % Normal 1.7-12.0 [facility] Comment on above: Performed By: #### U DINA, LIPID, TSH, BNP, CMP, T7 #### [facility] [address] [address] [address] Suzie Brooks NEUT # 7.4 103/ul Critically high 1.4-6.5 [facility] Comment on above: Performed By: #### U DINA, LIPID, TSH, BNP, CMP, T7 #### [facility] [address] [place] [address] Dr. Suzie Brooks Neutrophils/100 WBC (Bld) 66.3 % Normal 43.0-75.0 [facility] Comment on above: Performed By: #### U DINA, LIPID, TSH, BNP, CMP, T7 #### [facility] [address] [address] [address] Suzie Brooks Platelet mean volume (Bld) [Entitic vol] 9.6 fL Normal 9.5-13.5 [facility] Comment on above: Performed By: #### U DINA, LIPID, TSH, BNP, CMP, T7 #### [facility] [address] [place] [address] Dr. Suzie Brooks PLT 252 103/ul Normal 150-450 [facility] Comment on above: Performed By: #### U DINA, LIPID, TSH, BNP, CMP, T7 #### [facility] [address] [address] [address] Suzie Brooks RBC 5.37 106/ul Normal 4.70-6.10 [facility] Comment on above: Performed By: #### U DINA, LIPID, TSH, BNP, CMP, T7 #### [facility] [address] [address] [address] Suzie Brooks WBC 11.2 103/ul Critically high 4.0-11.[address] [facility] Comment on above: Performed By: #### U DINA, LIPID, TSH, BNP, CMP, T7 #### [facility] [address] [place] [address] Dr. Suzie Brooks Covid-19 PCR ([facility])on 10-09 SARS-CoV-2 (COVID-19) RNA SUKHJINDER+probe Ql (Unsp spec) Not detected Normal NOT DETECTED [facility] Comment on above: Result Comment: This test is not yet approved or cleared by the [place] FDA. When there are no FDA-approved or cleared tests available, and other criteria are met, FDA can make tests available under an emergency access mechanism called an Emergency Use Authorization (EUA). The EUA for this test is supported by the [place] of Health and Human Service's (HHS's) declaration [...] DINA, LIPID, TSH, BNP, CMP, T7 #### [facility] [address] [address] [address] Suzie Brooks PROF CHEM 8 (BAS METB)on Anion gap [Moles/Vol] 7.7 mmol/L Normal [facility] Comment on above: Performed By: #### C VDTBH #### [facility] [address] [place] [address] Dr. Suzie Brooks Calcium [Mass/Vol] 8.6 mg/dL Normal 8.5-10.1 [facility] Comment on above: Performed By: #### C VDTBH #### [facility] [address] [place] [address] Dr. Suzie Brooks Chloride [Moles/Vol] 104 mmol/L Normal 98-107 [facility] Comment on above: Performed By: #### C VDTBH #### [facility] [address] [address] [address] Suzie Brooks CO2 [Moles/Vol] 31.8 mmol/L Critically high 22.0-30.0 [facility] Comment on above: Performed By: #### C VDTBH #### [facility] [address] [place] [address] Dr. Suzie Brooks Creatinine [Mass/Vol] 0.99 mg/dL Normal 0.66-1.25 [facility] Comment on above: Performed By: #### C VDTBH #### [facility] [address] [place] [address] Dr. Suzie Brooks EGFR-AF NAMIBIAN >60 Normal >=60 [facility] Comment on above: Performed By: #### C VDTBH #### [facility] [address] [place] [address] Dr. Suzie Brooks EGFR-NON AF NAMIBIAN >60 Normal >=60 [facility] Comment on above: Performed By: #### C VDTBH #### [facility] [address] [place] [address] Dr. Suzie Brooks Glucose [Mass/Vol] 94 mg/dL Normal 74-106 [facility] Comment on above: Performed By: #### C VDTBH #### [facility] [address] [place] [address] Dr. Suzie Brooks Potassium [Moles/Vol] 4.5 mmol/L Normal 3.4-5.0 [facility] Comment on above: Performed By: #### C VDTBH #### [facility] [address] [place] [address] Dr. Suzie Brooks Sodium [Moles/Vol] 139 mmol/L Normal 137-145 [facility] Comment on above: Performed By: #### C VDTBH #### [facility] [address] [place] [address] Dr. Suzie Brooks Urea nitrogen [Mass/Vol] 12.0 mg/dL Normal 7.0-18.0 [facility] Comment on above: Performed By: #### C VDTBH #### [facility] [address] [place] [address] Dr. Suzie Brooks Urea nitrogen/Creatinine [Mass ratio] 12.1 mg/mg Normal [facility] Comment on above: Performed By: #### C VDTBH #### [facility] [address] [place] [address] Dr. Suzie Brooks PROTIMEon 10-26-2021 INR Coag (PPP) [Relative time] 0.99 {INR} Normal [facility] Comment on above: Performed By: #### C VDTBH #### [facility] [address] [place] [address] Dr. Suzie Boroks INR GUIDELINES SEE BELOW Normal [facility] Comment on above: Result Comment: TOMMY RED INR: 2.0 - 3.0 CONDITIONS NOT LISTED BELOW 2.5 - 3.5 FOR PROSTHETIC HEART VALVE REPLACEMENT 2.5 - 3.5 RECURRENT THROMBOSIS Performed By: #### C VDTBH #### [facility] [address] [place] [address] Dr. Suzie Brooks PT Coag (PPP) [Time] 10.7 s Normal 9.0-11.6 [facility] Comment on above: Performed By: #### C VDTBH #### [facility] [address] [place] [address] Dr. Suzie Brooks PTTon 10-26-2021 aPTT Coag (Bld) [Time] 26.4 s Normal 22.3-36.2 [facility] Comment on above: Performed By: #### C VDTBH #### [facility] [address] [place] [address] Dr. Suzie Brooks XR KUB 1 VIEWon [...] by: RAFAEL GRAVES Date: 2021-10-17 13:26 Normal [facility] Vital Signs Date Time Vital Sign Value Performing Clinician Dario mcdonough 04-16-2024 11:38-0400 Blood Pressure Location [facility] 04-16-2024 11:38-0400 Diastolic blood pressure 75 mm[Hg] [facility] 04-16-2024 11:38-0400 Heart rate 96 /min [facility] 04-16-2024 11:38-0400 Respiratory rate 18 /min [facility] 04-16-2024 11:38-0400 Systolic blood pressure 131 mm[Hg] [facility] 04-01-2024 15:04-0400 Body height 182.9 cm [employer] Work Phone: [facility] 04-01-2024 15:04-0400 Body mass index (BMI) [Ratio] 39.33 kg/m2 [employer] DO Work Phone: [facility] 04-01-2024 15:04-0400 Body weight 131.54 kg [employer] Work Phone: [facility] 04-01-2024 15:04-0400 Diastolic blood pressure 92 mm[Hg] [employer] Work Phone: [facility] 04-01-2024 15:04-0400 Systolic blood pressure 140 mm[Hg] [employer] DO Work Phone: [facility] 04-11-2023 11:55-0400 Blood Pressure Location Micki ZENG [facility] 04-11-2023 11:55-0400 Diastolic blood pressure 76 mm[Hg] Micki ZENG [facility] 04-11-2023 11:55-0400 Heart rate 80 /min Micki ZENG [facility] 04-11-2023 11:55-0400 Respiratory rate 16 /min Micki ZENG [facility] 04-11-2023 11:55-0400 Systolic blood pressure 134 mm[Hg] Micki ZENG [facility] 02-25-2022 14:20-0400 Blood Pressure Location Micki ZENG [facility] 02-25-2022 14:20-0400 Diastolic blood pressure 100 mm[Hg] Micki ZENG [facility] 02-25-2022 14:20-0400 Heart rate 86 /min Micki ZENG [facility] 02-25-2022 14:20-0400 Respiratory rate 16 /min Micki ZENG [facility] 02-25-2022 14:20-0400 Systolic blood pressure 155 mm[Hg] Micki ZENG [facility] Encounters Encounter Date Encounter Type Care Provider Facility Start: 04-15-2025 ambulatory Micki Muhammadi ty:[facility] Start: 04-16-2024 End: 04-16-2024 ambulatory Micki ZENG Facility: [facility] Start: 04-16-2024 End: 04-16-2024 Patient encounter procedure Micki ZENG [facility] Start: 04-01-2024 End: 04-01-2024 Office outpatient visit 15 minutes Christopher Brennon DO Work Phone: [facility] Comment on above: Essential tremor (Pr imary Dx); Essential hypertension (CMS/HCC) Start: 04-01-2024 End: 04-01-2024 ambulatory TRACEY WILLETT Not Available Start: 04-01-2024 End: 04-01-2024 Bamboo flowsheet Uliceser Brennon DO Work Phone: [facility] Start: 04-01-2024 End: 04-01-2024 Bamboo flowsheet Uliceser Brennon DO Work Phone: [facility] Start: 04-11-2023 End: 04-11-2023 Patient encounter procedure Micki ZENG [facility] Start: 08-14-[address] MARIELLE LERMA Facility :[facility] Start: 08-13-[address] MARIELLE LERMA Facility :[facility] Start: 07-26-2022 End: 07-27-[address] MARIELLE LERMA Facility:[facility] Start: 07-18-2022 End: 07-19-[address] MICKI ZENG Facility:[facility] Start: 05-15-2022 End: 05-16-[address] MARIELLE LERMA Facility:[facility] Start: 02-25-2022 End: 02-25-2022 Patient encounter procedure Micki ZENG [facility] Start: 02-18-2022 End: 02-18-[address] MARIELLE LERMA Facility:[facility] Start: 02-16-2022 End: 02-17-[address] MARIELLE LERMA Facility:[facility] Start: 02-01-2022 End: 02-01-[address] MICKI ZENG Facility:[facility] Start: 01-30-2022 End: 01-31-[address] MICKI ZENG Facility:[facility] Start: 12-18-2021 End: 12-19-[address] MICKI ZEGN Facility:[facility] Start: 11-21-2021 End: 11-22-[address] MARIELLE LERMA Facility:[facility] Start: 11-13-2021 End: 11-13-2021 Patient encounter procedure MD Marielle Lerma Work Phone: [facility] Start: 11-12-2021 End: 11-13-[address] MICKI ZENG Facility:[facility] Start: 11-06-2021 End: 11-07-[address] MARIELLE LERMA Facility:[facility] Start: 11-05-2021 End: 11-05-[address] MARIELLE LERMA Facility:[facility] Start: 11-01-2021 End: 11-01-[address] MICKI ZENG Facility:[facility] Start: 10-31-2021 Encounter for preprocedural cardiovascular examination DR MICKI ZENG [facility] Start: 10-30-[address] MICKI ZENG [facility] ity:H1 Start: 10-26-2021 End: 10-27-[address] MICKI ZENG Facility:[facility] Start: 10-26-2021 End: 10-27-2021 Encounter for preprocedural cardiovascular examination DR MICKI ZENG Facility:[facility] Start: 10-17-2021 End: 10-18-[address] MICKI ZENG Facility:[facility]1 Procedures Date Procedure Procedure Detail Performing Clinician Start: 05-15-[address] JHONATAN ZENG Comment on above: Performed By: #### U DINA, LIPID, TSH, BNP, CMP, T7 #### [facility] [address] [place] [address] Dr. Suzie Brooks Start: 11-21-2021 Cystoscopy Micki [...] procedure 04/18/2025 2:00 PM EDT Office Visit [facility] [address] [place] [phone] Tracey Willett DO [address] [place] [address] [facility] Start: 04-11-2024 Influenza vaccination Influenza Vacc ine (#1) [facility] Start: 04-01-2024 End: 04-01-2024 Patient encounter procedure 04/01/2024 3:00 PM EDT Office Visit [facility] [address] [address] [place] [phone] BrennonTracey washington, DO [address] [place] [id number] [facility] Comment on above: Arrived Start: 11-09-2023 Screening for malign ant neoplasm of colon [facility] Start: 05-22-2018 Pneumococcal Vaccine : 65+ Years (2 of 2 - PPSV23 or PCV20) Pneumococcal Vaccine: 65+ Years (2 of 2 - PPSV23 or PCV20) [facility] Start: 1950 Screening for malign ant neoplasm of colon [facility] Immunizations Immunization Date Immunization Notes Care Provider Fa cility 05-31-2022 SARS-CoV-2 (COVID-19 ) [id number] Micki ZENG [facility] Comment on above: Result Comment: 2022: [id number] 12-22-2021 SARS-CoV-2 (COVID-19 ) mRNA-1273 vaccine Micki ZENG [facility] 06-05-2021 SARS-CoV-2 (COVID-19 ) mRNA-1273 vaccine Micki ZENG [facility] 05-29-2021 influenza virus vaccine, unspecified formulation Micki ZENG [facility] 05-15-2021 influenza virus vaccine, unspecified formulation Micki ZENG [facility] 11-09-2020 SARS-CoV-2 (COVID-19 ) mRNA-1273 vaccine Micki ZENG [facility] 11-01-2020 SARS-CoV-2 (COVID-19 ) mRNA-1273 vaccine Micki ZENG [facility] 10-09-2020 SARS-CoV-2 (COVID-19 ) mRNA-1273 vaccine Micki [facility] 10-05-2020 SARS-CoV-2 (COVID-19 ) mRNA-1273 vaccine Micki [facility] 05-17-2020 influenza virus vaccine, unspecified formulation Micki [facility] 06-24-2019 tetanus toxoid, redu roberto carlos diphtheria toxoid, and acellular pertussis vaccine, adsorbed Micki ZENG [facility] 05-25-2019 influenza virus vaccine, unspecified formulation Micki ZENG [facility] 05-22-2017 influenza virus vaccine, unspecified formulation Micki ZENG [facility] 05-22-2017 pneumococcal conjuga te vaccine, 13 valent Micki ZENG [facility] 05-30-2016 influenza, unspecifi ed formulation Micki ZENG [facility] 11-01-2013 zoster vaccine, live Micki ZENG [facility] 12-18-2005 hepatitis A vaccine, adult dosage Micki [facility] 10-18-2005 hepatitis B vaccine, pediatric or pediatric/adolescent dosage Micki ZENG [facility] 10-18-2005 tetanus and diphther ia toxoids, adsorbed, preservative free, for adult use (2 Lf of tetanus toxoid and 2 Lf of diphtheria toxoid) Mickikimberly ZENG [facility] 07-26-2005 hepatitis B vaccine, pediatric or pediatric/adolescent dosage Mickikimberly ZENG [facility] 06-20-2005 hepatitis A vaccine, adult dosage Micki ZENG [facility] 06-20-2005 hepatitis B vaccine, pediatric or pediatric/adolescent dosage Micki ZENG [facility] Payers Date Payer Category Payer Private Health Insurance [employer]IG[employer] Lianet IGNA MEDICARE SUPPLEMENT [id number] 2024-Present [address] [address] [place] [address] Supplement [id number] 2017 Medicare MEDICARE MEDICAR E RAILROAD [id number] 2017-Present [facility] RA[facility] MEDICARE [address] [address] [place] [address] Medicare [id number] 1959 Medicare [id number] 1959 Private Health Insurance [id number] 1952 Unknown [id number] 2.16.840.1.134519.3.579 .2.593 1952 Unknown [id number] 2.16.840.1.827008.3.579 .2.593 1952 Unknown [id number] 2.16.840.1.248186.3.579 .2.593 1952 Unknown [id number] 2.16.840.1.310128.3.579 .2.593 1952 Unknown [id number] 2.16.840.1.165837.3.579 .2.593 1952 Unknown [id number] 2.16.840.1.646714.3.579 .2.593 1952 Unknown [id number] 2.16.840.1.850160.3.579 .2.593 1952 Unknown [id number] 2.16.840.1.099217.3.579 .2.593 1952 Unknown [id number] 2.16.840.1.578157.3.579 .2.593 1952 Unknown [id number] 2.16.840.1.147528.3.579 .2.593 1952 Unknown [id number] 2.16.840.1.966348.3.579 .2.593 1952 Unknown [id number] 2.16.840.1.335380.3.579 .2.593 1952 Unknown [id number] 2.16.840.1.505142.3.579 .2.593 1952 Unknown [id number] 2.16.840.1.115967.3.579 .2.593 1952 Unknown [id number] 2.16.840.1.181425.3.579 .2.593 1952 Unknown [id number] 2.16.840.1.190988.3.579 .2.593 1952 Unknown [id number] 2.16.840.1.538744.3.579 .2.593 1952 Unknown [id number] 2.16.840.1.271632.3.579 .2.593 1952 Unknown [id number] 2.16.840.1.233446.3.579 .2.1259 1952 Unknown [id number] 2.16.840.1.579253.3.579 .2.727 1952 Unknown [id number] 2.16.840.1.449198.3.579 .2.727 Self-pay Self Pay [id number] Social History Date Type Detail Facility Start: 10-19-2019 End: 04-16-2024 Tobacco smoking status WIIS Ex-smoker (finding) [facility] Start: 1950 Sex Assigned At Male [facility] Tobacco smoking status Never [facility] Start: 03-28-2024 Sex Assigned At Male [facility] Start: 03-28-2024 Tobacco smoking stat us WIIS Never smoked tobacco [facility] Start: 03-28-2024 [...] 04-16-2024 Functional Status N/A [facility] 04-11-2023 Functional Status N/A [facility] 02-25-2022 Functional Status N/A [facility] Clinical Notes 02-25-2022 to 04-16-2024 Tracey Willett - 04/01/2024 3:00 PM EDT Note Date & Type Note Facility 04-16-2024 Hospital Discharg e instructions Patient Education 04/16/2024 12:25:38 Kidney Stones, Dftr-ha-Wvch Kidney Stones Kidney stones are rock-like masses [...] Follow these instructions at home: Medicines Take beor-xzn-kwbfcbp and prescription medicines only as told by [...] provider. Document Revised: 03/21/2023 Document Reviewed: 03/21/2023 [employer] Patient Education 2023 [employer]. Follow Up Care 04/11/2023 12:50:53 With:THOR BATISTA, Micki Cedeño, URL Address: [facility] [address], [place] [address] [phone] When: Unknown Comments:1 yr w/ ISIDRO [facility] Note Patient Education Urology Kidney Stones [...] these instructions at home: Medicines ? Take lxlr-uyi-oanubet and prescription medicines only as told by [...] provider. Document Revised: 03/21/2023 Document Reviewed: 03/21/2023 [employer] Patient Education ? 2023 [employer]. [facility] 04-01-2024 History of Presen t illness Narrative [...] reflexes are 1+ and symmetric throughout. Coordination: Edipow-ta-lcwb testing and rapid alternating movements are normal Gait: Normal Review and summary of old records: MRI of the brain at [place] 03/10/18: Mild age-related atrophy. No acute findings [...] and return instructions documented in this encounter [facility] 04-11-2023 Hospital Discharg e instructions Patient [...] include: ?8 oz (237 mL) of milk, hvjdbow-tqmmcpoafqkg-uatxl milk, and calcium-fortifiedfruit juice. Calcium-fortified means that [...] ?Spinach (cooked), rhubarb, beets, sweet potatoes, and Spanish chard. ?Peanuts. ?Potato chips, [place] citizen fries, and baked potatoes with skin on. ?Nuts and nut products. ?Chocolate. If you regularly take a diuretic medicine, make sure to eat at least 1 or 2 servings of fruits or vegetables that are high in potassium each day. These include: ?Avocado. ?Banana. ?[place], prune, carrot, or tomato juice. ?Baked potato. [...] magnesium, fish oil, or vitamin B6. Take tkvw-kza-tuudgff and prescription medicines only as told by [...] Casseroles. Pizza. Lasagna. Frozen meals. Potato chips. Norwegian fries. The items listed above may not [...] provider. Document Revised: 04/08/2022 Document Reviewed: 04/08/2022 [employer] Patient Education 2022 [employer]. Follow Up Care 08/19/2022 10:39:03 With:THOR BATISTA, Micki Cedeño, URL Address: [facility] [address] [place] [address]- When:Within 1 Year(s) [facility] 02-25-2022 Hospital Discharg e instructions [...] 07/28/2006 Document Revised: 04/16/2019 Document Reviewed: 06/27/2017 [employer] Patient Education 2020 [employer]. 02/25/2022 15:28:39 Kidney Stones, Xquw-ne-Zlan Kidney Stones Kidney stones are rock-like masses [...] Follow these instructions at home: Medicines Take eykm-dbr-eilqhcc and prescription medicines only as told by [...] 01/13/2009 Document Revised: 12/14/2019 Document Reviewed: 12/14/2019 [employer] Patient Education 2019 [employer]. Follow Up Care 11/21/2021 12:48:10 With:Micki ZENG MD, URL Address: [facility] [address], [place] [address]- [phone] When:Within 4 Month(s) Comments:4 mo fu with IVP [facility] 02-25-2022 Evaluation + Plan note Diagnostic Tests PendingPSA Total 02/25/22Creatinine 02/25/22 [facility] Evaluation + Plan note Future Appointments Appointment Date:04/16/2024 11:00:00 AM Scheduled Provider:Micki ZENG MD Location:[facility] Appointment Type:URO Office Visit [facility] Evaluation + Plan note Future Appointments Appointment Date:04/15/2025 11:00:00 AM Scheduled Provider:Micki ZENG MD Location:[facility] Appointment Type:URO Office Visit [facility] Evaluation note No assessment inform ation available [facility] Work Phone: Evaluation note Diagnosis Essential tremor- Primary Essential hypertension (CMS/HCC) Unspecified essential hypertension [facility] N[facility] No data available for this section [facility] progress note No data available for this section [facility] Chief Complaint and Reason for Visit [...] Marielle Lerma MD Primary Care Provider Active Reimbursement Consultant Relationship Specialty Start Date End Date Marielle Lerma MD [address] [place] [address] PCP - General Family Medicine 04/01/24 Reimbursement Consultant Relationship Specialty Start Date End Date Marielle Lerma MD [address] [place] [address] PCP - General Family Medicine 04/01/24 Goals [...] section and content) DATE CREATED AUTHOR 11/22/2021 [facility] DATE CREATED AUTHOR AUTHOR'S ORGANIZ ATION 08/13/2022 [facility] DATE CREATED AUTHOR AUTHOR'S ORGANIZ ATION 04/03/2024 [facility] dic DATE CREATED AUTHOR AUTHOR'S ORGANIZ ATION 04/18/2024 [facility] FOR RECORDS PERTAINING TO PATIENTS WHO ARE [...] BE BASED ON THE PRIMARY CLINICAL RECORDS. [facility] [employer] [facility]. provides no warranty or guarantee of the accuracy or completeness of information in this document.
--- NOTE | 2024-08-02 18:41 | P.HP_ITS ---
HPI H&P: HPI History of Present Illness Chief complaint: shortness of breath Narrative: Patient was seen and evaluated in the office with increasing cough and shortness of breath, seen last week sounded like he was on antibiotics for a finger laceration, but since that time he has been getting worse with increasing cough and shortness of breath, feels a get that many of his previous pneumonia. Send him over to the hospital for outpatient testing but while he was waiting in the waiting room symptoms became worse and he presented to the emergency room I saw patient is resting in chair, cough and shortness of breath throughout the evaluation. Some conversational dyspnea as well. Opioid HPI Opioid Management Most Recent Pain and Opioid Data: Last Pain Scale 3 11/08/23 06:00 11/08/23 Last Pain Assessment 08/02/24 17:42 Last ORT Total Score 0 08/02/24 17:42 08/02/24 Last ORT Risk Category Low Risk 08/02/24 17:42 08/02/24 PFSH PFSH Medical History (Updated 08/02/24 @ 17:48 by Bry Ricardo MD) Centrilobular emphysema ?J43.2 - Centrilobular emphysema (ICD-10) Obesity ?E66.9 - Obesity, unspecified (ICD-10) History of tobacco abuse ?Z87.891 - Personal history of nicotine dependence (ICD-10) Elevated hemidiaphragm ?J98.6 - Disorders of diaphragm (ICD-10) Acute asthmatic bronchitis ?J45.909 - Unspecified asthma, uncomplicated (ICD-10) Dehydration ?E86.0 - Dehydration (ICD-10) Weakness ?R53.1 - Weakness (ICD-10) Acute dyspnea ?R06.00 - Dyspnea, unspecified (ICD-10) 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 - Broken internal right knee prosthesis, initial encounter (ICD-10) Umbilical hernia ?K42.9 - Umbilical hernia without obstruction or gangrene (ICD-10) Kidney stones ?N20.0 - Calculus of kidney (ICD-10) Hx of skin malignancy ?Z85.828 - Personal history of other malignant neoplasm of skin (ICD-10) Chest pain ?R07.9 - Chest pain, unspecified (ICD-10) Surgical History (Updated 09/02/23 @ 16:17 by Nory Patel) History of cataract surgery ?Z98.49 - Cataract extraction status, unspecified eye (ICD-10) History of renal stent H/O lithotripsy ?Z98.890 - Other specified postprocedural states (ICD-10) Family History (Updated 09/02/23 @ 16:18 by Nory Patel) Mother Family history of cancer Family history of hypertension Father Family history of diabetes mellitus Family history of hypertension Family history of myocardial infarction Social History (Updated 08/02/24 @ 17:39 by Heatehr Haley) Within the past year, how often did you have a drink containing alcohol: never Score interpretation: A score less than 4 is consistent with normal alcohol consumption. Smoking status: Former smoker Non-prescribed substance use: denies use Previous occupational history: Retired Highest level of school completed/degree received: some college, no degree Are you now , , , , never or living with a partner: In a typical week, how many times do you talk on the telephone with family, friends, or neighbors: 3 or more times per week How often do you get together with friends or relatives: 3 or more times per week How often do you attend religious or advent services: never Do you belong to any clubs or organizations such as religious groups unions, fraSprig or athletic groups, or school groups: no Total score: 2 Score interpretation: A score of greater than or equal to 2 indicates the lowest level of social isolation. Little interest or pleasure in doing things: not at all Feeling down, depressed, or hopeless: not at all Feel stressed/tense/nervous/anxious/difficulty sleeping: not at all Do you think of yourself as: straight/heterosexual Gender Identity: male Meds Home Medications and Allergies Home Medications ?Medication ?Instructions ?Recorded ?Confirmed ?Type allopurinol 300 mg tablet 300 mg PO DAILY 08/15/23 08/02/24 History aspirin 81 mg capsule 81 mg PO DAILY #30 caps 08/15/23 08/02/24 Rx hydrochlorothiazide 12.5 mg capsule 12.5 mg PO QDAY 08/15/23 08/02/24 History potassium citrate 10 mEq (1,080 10 meq PO BID 08/15/23 08/02/24 History mg) tablet,extended release primidone 50 mg tablet 50 mg PO BID 08/15/23 08/02/24 History simvastatin 20 mg tablet 20 mg PO .QHS 08/15/23 08/02/24 History solifenacin 10 mg tablet 10 mg PO DAILY 08/15/23 08/02/24 History tamsulosin 0.4 mg capsule 0.4 mg PO BID 08/15/23 08/02/24 History lisinopril 40 mg tablet 40 mg PO .QD 09/02/23 08/02/24 History fluticasone propionate 50 2 spray intranasal QD #16 grams 09/06/23 08/02/24 Rx mcg/actuation nasal spray,suspension montelukast 10 mg tablet 10 mg PO QHS #30 tabs 09/06/23 08/02/24 Rx fluticasone furoate 200 1 inh inhalation DAILY #1 ea 11/08/23 08/02/24 Rx mcg-vilanterol 25 mcg/dose inhalation powder (Breo Ellipta) levofloxacin 750 mg tablet 750 mg PO DAILY 10 days #10 tabs 11/08/23 08/02/24 Rx prednisone 20 mg tablet 40 mg (2 x 20 mg) PO DAILY 5 days 07/25/24 08/02/24 Rx #10 tabs Allergies Allergy/AdvReac Type Severity Reaction Status Date / Time No Known Drug Allergies Allergy Verified 08/02/24 16:08 Exam Constitutional Vital Signs, click to edit/add: Last Vital Signs Temp 98.4 F 08/02/24 17:42 Pulse 110 H 08/02/24 18:16 Resp 20 08/02/24 17:42 BP 153/82 H 08/02/24 17:42 Pulse Ox 95 08/02/24 17:42 O2 Del Method Room Air 08/02/24 17:42 Documenting provider has reviewed patient's vital signs: yes Common normals: apparent distress and negative for average body habitus Exam limitations: no altered mental status HENMT Common normals: normocephalic Chest Common normals: inspection of chest normal Respiratory Common normals: abnormal respiratory effort (Conversational dyspnea and cough throughout the evaluation) and not clear to ascultation bilaterally Auscultation: rhonchi and wheezes Cardio Common normals: regular rate and regular rhythm GI Common normals: negative for Normal to inspection, nondistended, normoactive bowel sounds present (Obese) Neuro Common normals: oriented x3 and moves all extremities Assessment and Plan Assessment and Plan (1) COPD exacerbation: (2) Dyspnea: (3) Centrilobular emphysema: (4) Acute asthmatic bronchitis: Plan Admission findings: Sinus tachycardia, low-grade fever, respiratory distress, uncontrolled hypertension, leukocytosis with left shift consistent with bacterial process with elevated liver function test, likely complication of sepsis from pneumonia versus bronchitis. Chest x-ray so far is clear hydration may show further details of pneumonia and later Respiratory distress with sepsis due to bronchitis leading to acute exacerbation of COPD, (failed outpatient treatment secondary to being on antibiotics - cephalexin - for finger laceration) lactate level pending, if positive would be severe sepsis-unable to give aggressive fluid resuscitation secondary to history of heart failure in the past. Will give low-level lactated Ringer's for fluids, IV antibiotics, frequent aerosol treatments, blood cultures and sputum cultures pending and urine pending, patient with a history of fungal pneumonia will start patient on Diflucan as well Hypertension-continue the medications Tremor-continue with home medications Knee pain-continue with home medications but will stop the fentanyl patch BPH-continue with home medications Hypercholesterolemia continue with home medications Elevated liver function test likely related to the sepsis - Monitor daily Admission status: Patient essentially failed outpatient treatment, he developed his acute bronchitis with acute exacerbation of COPD and ending up with sepsis while being on oral antibiotics. Patient will require IV medications, greater than 2 midnights. Medically necessary treatment spanning 2 midnights. Inpatient status and
[2024-08-02] MEDS: LACTATED RINGER'S SOLUTION 1,000 ML 100 ML IV (19:34)
[2024-08-02] MEDS: METHYLPREDNISOLONE SOD SUCC PF 125 MG/2 ML VIAL IVP (19:34)
[2024-08-02] MEDS: LEVOFLOXACIN IN DEXTROSE 5 % 750 MG/150 ML PREMIX 100 MG IV (19:34)
[2024-08-02] MEDS: FLUTICASONE PROPIONATE 50 MCG NASAL SPRAY 2 SPRAY NS (19:34)
[2024-08-02] MEDS: FLUCONAZOLE 100 MG TABLET 200 MG PO (19:34)
[2024-08-02 20:59] LABS: Hematocrit 44.2 % (42.0-54.0); Mean Corpuscular HGB Conc 33.9 g/dL (29.9-35.2); Mean Corpuscular Hemoglobin 30.3 pg (25.9-34.0); Mean Corpuscular Volume 89.3 fL (80.0-94.0); Mean Platelet Volume 8.9 fL (9.5-13.5); PCO2 VBG 37.7 mmHg (40.0-52.0); Platelet Count 322 10^3/uL (150-450); Red Blood Count 4.95 10^6/uL (4.70-6.10); Red Cell Distribution Width 13.6 % (11.0-15.0); pH VBG 7.483 (7.330-7.430)
[2024-08-02 21:09] LABS: Bilirubin Urine NEGATIVE (NEGATIVE); Blood Urine NEGATIVE (NEGATIVE); Clarity Urine CLEAR (CLEAR); Color Urine YELLOW (YELLOW); Glucose Urine UA NEGATIVE (NEGATIVE); Ketones Urine TRACE mg/dL (NEGATIVE); Leukocyte Esterase Urine NEGATIVE (NEGATIVE); Nitrite Urine NEGATIVE (NEGATIVE); Protein Urine NEGATIVE (NEG/TRACE); Specific Gravity Urine 1.025 (1.005-1.025); Urobilinogen Urine 0.2 EU/dL (0.2-1.0); pH Urine 5.5 (5.0-9.0)
[2024-08-02 21:14] LABS: Influenza Virus A Antigen Negative; Influenza Virus B Antigen Negative; Internal Control Within Normal Limits; Respiratory Syncytial Virus Not Detected (NOT DETECTE); SARS-CoV-2 Ag POSITIVE (NEGATIVE)
[2024-08-02 21:15] LABS: Internal Control Within Normal Limits
[2024-08-02 21:38] LABS: Bacteria Urine TRACE #/HPF (NONE SEEN); Cast Seen? NONE SEEN #/LPF (NONE SEEN); Crystals Seen? None Seen #/HPF (None Seen); Mucus Urine LARGE (NONE SEEN); RBC Urine 0-2 #/HPF (0-2); Squamous Epithelial Cell Urine NONE SEEN #/LPF (NONE/RARE); Urine Culture Indicated NO; WBC Urine NONE SEEN #/HPF (NONE SEEN)
[2024-08-02 21:41] LABS: Alanine Aminotransferase 99 U/L (16-63); Albumin Globulin Ratio 0.9; Albumin Level 2.9 g/dL (3.4-5.0); Alkaline Phosphatase 59 U/L (46-116); Anion Gap 12.7; Aspartate Amino Transferase 43 U/L (15-37); BUN Creatinine Ratio 19.6; Bilirubin Total 0.6 mg/dL (0.2-1.0); Calcium 8.5 mg/dL (8.5-10.1); Carbon Dioxide 26.6 mmol/L (21.0-32.0); Chloride 100 mmol/L (98-107); Estimated GFR (African America >60 (>=60 mL/min/1.73m^2); Estimated GFR (Non-African Ame >60 (>=60 mL/min/1.73m^2); Globulin 3.1 g/dL; Glucose 128 mg/dL (74-106); Potassium 3.3 mmol/L (3.5-5.1); Sodium 136 mmol/L (136-145)
[2024-08-02 21:48] LABS: Troponin I High Sensitivity 11.6 pg/mL (4.0-76.1)
[2024-08-02] MEDS: PRIMIDONE 50 MG TABLET PO (21:48)
[2024-08-02] MEDS: L. ACIDOPHILUS/L.BULGARICUS 1 PACKET GRAN.PACK PO (21:48)
[2024-08-02] MEDS: PIPERACILLIN SODIUM/TAZOBACTAM 3.375 GM in 0.9 % SODIUM CHLORIDE 50 ML IV (21:48)
[2024-08-02] MEDS: POTASSIUM CITRATE 10 MEQ ER TABLET PO (21:48)
[2024-08-02] MEDS: MONTELUKAST SODIUM 10 MG TABLET PO (21:48)
[2024-08-02 21:50] LABS: Atypical Lymphocytes Abs Man 0.57; Eosinophils Absolute Manual 0.19 10^3/uL (0.00-0.70); Lymphocytes Absolute Manual 1.52 10^3/uL (1.20-3.80); Monocytes Absolute Manual 0.57 10^3/uL (0.30-0.80); Segmented Neut Absolute Manual 16.34 10^3/uL (1.4-6.5)
[2024-08-02 21:53] LABS: Lactate/Lactic Acid 2.9 mmol/L (0.4-2.0)
[2024-08-02] MEDS: TAMSULOSIN HCL 0.4 MG CAPSULE PO (22:01)
[2024-08-02] MEDS: ATORVASTATIN CALCIUM 10 MG TABLET PO (22:02)
[2024-08-03] VITALS (19 sets, daily range): BP systolic 123–154; BP diastolic 57–85; PULSE 65–104; TEMP 36.1–37.2; O2SAT 94–97
[2024-08-03 00:33] LABS: Lactate/Lactic Acid 3.5 mmol/L (0.4-2.0)
[2024-08-03] MEDS: METHYLPREDNISOLONE SOD SUCC PF 125 MG/2 ML VIAL IVP ×4 (02:35→20:04)
[2024-08-03] MEDS: PIPERACILLIN SODIUM/TAZOBACTAM 3.375 GM in 0.9 % SODIUM CHLORIDE 50 ML IV ×3 (04:09→20:05)
[2024-08-03] MEDS: IPRATROPIUM/ALBUTEROL SULFATE 3 ML AMPUL.NEB IH ×3 (05:23→15:40)
[2024-08-03 06:01] LABS: Basophils Percent Auto 0.3 % (0.2-2.0); Eosinophils Percent Auto 0.1 % (0.9-7.0); Hematocrit 43.2 % (42.0-54.0); Hemoglobin 14.4 g/dL (14.0-18.0); Immature Granulocytes Pct Auto 5.3 % (0.0-0.5); Lymphocytes Absolute Auto 1.3 10^3/uL (1.2-3.8); Lymphocytes Percent Auto 9.5 % (20.5-60.0); Mean Corpuscular HGB Conc 33.3 g/dL (29.9-35.2); Mean Corpuscular Hemoglobin 29.6 pg (25.9-34.0); Mean Corpuscular Volume 88.7 fL (80.0-94.0); Mean Platelet Volume 8.9 fL (9.5-13.5); Monocytes Absolute Auto 0.2 10^3/uL (0.3-0.8); Monocytes Percent Auto 1.4 % (1.7-12.0); Neutrophils Absolute Auto 11.1 10^3/uL (1.4-6.5); Neutrophils Percent Auto 83.4 % (43.0-75.0); Platelet Count 291 10^3/uL (150-450); Red Blood Count 4.87 10^6/uL (4.70-6.10); Red Cell Distribution Width 13.5 % (11.0-15.0); White Blood Count 13.3 10^3/uL (4.0-11.0)
--- OUTSIDE RECORDS SUMMARY | 2024-08-03 06:04 | XMS_ITS | CCD ---
Author Organization [facility] CliniSyaz Care Team Providers Care Transfer And Pumphouse Operator Name Role Phone MD Marielle Lerma Primary Care Provider [phone] MD Micki Zeng Attending Provider Marielle Lerma Primary Care Physician [phone] THOR, DR SWEET Admitting Unavailable THOR, DR SWEET Attending Unavailable HOY, DR PALOMARES Primary Care Unavailable ZENG, DR SWEET Consulting Unavailable STONEYEBDMITRIY, DR BEHZAD Cedeño Consulting Unavailable ASHLEY, DR PALOMARES Primary Care Unavailable HOY, DR PALOMARSE Admitting Unavailable HOY, DR PALOMARES Attending Unavailable HOY, DR PALOMARES Consulting Unavailable STONEYEBDMITRIY, DR BEHZAD Cedeño Consulting Unavailable LATONYA AMADOR Consulting Unavailable THOR, DR SWEET Admitting Unavailable ZENG, DR SWEET Attending Unavailable HOY, DR PALOMARES Primary Care Unavailable THOR, DR SWEET Consulting Unavailable THOR, DR SWEET Admitting Unavailable THOR, DR SWEET Attending Unavailable HOY, DR APLOMARES Primary Care Unavailable THOR, DR SWEET Consulting [...] Unavailable Marielle Lerma MD Primary Care Provider [phone] Allergies Allergy Classification Reported Allergen(s) Allergy Type Date of Onset Reaction(s) Facility (1 source) No Known Medication Allergies; Translations: [No Known Medication Allergies] Propensity to adverse reactions (disorder) [facility] Repository Medications Current Medications Medication Drug Class(es) [...] by mouth in the morning HYDROcodone-acetami nophen (Hematite) 10-325 MG tablet Take 1 tablet by mouth in the morning and 1 tablet before bedtime. 12/29/2023 Active Start: 05-29-2021 take 1 tablet by isa th once daily acetaminophen-hydrocodone 325 mg-5 mg or al tablet 1 tab(s), Oral, Daily pain, Refill(s) 0 Start Date: 05/29/21 Status: Ordered Start: 09-07-2019 End: 10-12-2019 take 1 tablet by mouth every four to six hours Hydrocodone-Acetaminophen (Hematite) 5-325 mg tablet Active 1 TAB PO EVERY 4-6 HOURS 40 7 September 28, 2019 1:45pm allopurinol 300 mg oral tablet (6 sources) Xanthine Oxidase Inhibitor Start: 11-27-2023 take 1 tablet by mouth once daily allopurinol 300 mg Tab 300 mg = 1 tab(s), Oral, Daily, # 90 tab(s), Refills(s) 3, Pharmacy: [facility]/pharmacy #[id number], 180, cm, 04/11/23 11:56:00 EDT, Height/Length Dosing, 127, kg, 04/11/23 11:56:00 EDT, Weight Dosing Start Date: 03/02/24 Status: Ordered Start: 03-10-2023 take 1 tablet by isa th once daily allopurinol 300 mg Tab 300 mg = 1 tab(s), Oral, Daily, # 90 tab(s), Refills(s) 3, Pharmacy: [facility]/pharmacy #[id number], 180, cm, 08/19/22 9:50:00 EST, Height/Length Dosing, 136.2, kg, 08/19/22 9:50:00 EST, Weight Dosing Start Date: 03/10/23 Status: Ordered Start: 02-25-2022 allopurinol 30 0 mg Tab 150 mg = 0.5 tab(s), Oral, Daily, # 30 tab(s), Refills(s) 11, Pharmacy: [facility] #[id number], 180, cm, 02/25/22 14:22:00 EDT, Height/Length Dosing, 135, kg, 02/25/22 14:22:00 EDT, Weight Dosing Start Date: 02/25/22 Status: Ordered aspirin 81 mg chewable tablet (4 sources) Platelet Aggregation Inhibitor, Nonsteroidal Anti-inflammatory Drug Start: 04-16-2024 aspirin 81 mg Callie w Tab 162 mg = 2 tab(s), Chewed, BID Start Date: 04/16/24 Status: Ordered Start: 02-10-2019 take 2 tablets by [facility] once daily aspirin 81 mg oral tablet 162 mg = 2 tab(s), Oral, Daily, Refills(s) 0 Start Date: 02/10/19 Status: Ordered Start: 01-02-2018 take 1 tablet by [facility] twice daily Aspirin (Aspir-81) 81 mg [...] Start: 08-19-2022 take 1 capsule by mo [facility] once daily hydrochlorothiazide 12.5 mg Cap 12.5 mg = 1 cap(s), Oral, Daily, # 90 cap(s), Refills(s) 3, Pharmacy: [facility]/pharmacy #[id number], 180, cm, 08/19/22 9:50:00 EST, Height/Length Dosing, 136.2, kg, 08/19/22 9:50:00 EST, Weight Dosing Start Date: 08/19/22 Status: Ordered Start: 02-25-2022 take 1 capsule by [facility] once daily hydrochlorothiazide 12.5 mg Cap 12.5 mg = 1 cap(s), Oral, Daily, # 30 cap(s), Refills(s) 6, Pharmacy: [facility] #[id number], 180, cm, 02/25/22 14:22:00 EDT, Height/Length [...] 10 mg by mouth at bedtime Active Spygnkkn-Qtt-Dv-Lycopen-Lute in (Centrum Silver) 0.4-300-250 mg-mcg-mcg Tablet (1 source) Start: 09-02-2019 take 1 tablet by mouth once daily Pjmkdljz-Llr-Gl-Lycopen-Lutein (Centrum Silver) 0.4-300-250 mg-mcg-mcg Tablet Active 1 [...] tab(s), Oral, BID, 60 tab(s), Refill(s) 11, [facility]/pharmacy #[id number], 180, cm, 04/11/23 11:56:00 [...] BID, # 90 tab(s), Refills(s) 3, Pharmacy: [facility]/pharmacy #[id number], 180, cm, 08/19/22 9:50:00 [...] Daily, # 30 tab(s), Refills(s) 11, Pharmacy: [facility]/pharmacy #[id number], 180, cm, 02/25/22 14:22:00 EDT, Height/Length Dosing, 135, kg, 02/25/22 14:22:00 EDT, Weight Dosing Start Date: 02/25/22 Status: Ordered tadalafil 20 mg oral tablet (4 sources) Phosphodiesterase 5 Inhibitor Start: 10-23-2021 take 1 tablet by mouth once daily Cialis 20 mg Tab 20 mg = 1 tab(s), Oral, Daily, # 30 tab(s), Refills(s) 6, Pharmacy: [facility]/pharmacy #[id number], 180, cm, 10/22/21 14:56:00 [...] Start: 10-28-2023 take 1 capsule by mo [facility] twice daily tamsulosin 0.4 mg Cap 0.4 mg = 1 cap(s), Oral, BID, # 180 cap(s), Refills(s) 3, Pharmacy: [facility]/pharmacy #[id number], 180, cm, 04/11/23 11:56:00 EDT, Height/Length Dosing, 127, kg, 04/11/23 11:56:00 EDT, Weight Dosing Start Date: 10/28/23 Status: Ordered Start: 04-11-2023 take 1 capsule by [facility] once daily tamsulosin 0.4 mg Cap 0.4 mg = 1 cap(s), Oral, Daily, # 90 cap(s), Refills(s) 3, Pharmacy: [facility]/pharmacy #[id number], 180, cm, 04/11/23 11:56:00 [...] Coronary atherosclerosis; Translations: [Atherosclerotic heart disease of [place] coronary artery without angina pectoris] Onset: 11-05-2021 [...] Onset: 08-01-2022 Chronic Other 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) 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; Translations: [ALF CURRENT USE OF ASPIRIN] Onset: 08-01-2022 Episodic Other 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) 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; Translations: [OTH PEANUT SORTER CURRENT DRUG THERAPY] Onset: 08-01-2022 Episodic Other [...] Onset: 02-18-2022 Episodic Other 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) director long term care (current) use of anticoagulants; Translations: [PEANUT SORTER CURRNT USE ANTICOAGULANTS] Onset: 11-05-2021 Episodic Other [...] Micki ZENG MD Where: [facility] [address] [place] [address]- You Need to Schedule the Following Appointments Follow Up with Micki ZENG MD, URL When: Comments: 1 yr w/ ISIDRO Where: [facility] [address], [place] [address]- [phone] Medications What How Much When Instructions Unchanged [...] of urination (more content not included)... Normal [facility] Ambulatory Visit Summary Ambulatory Visit Summary APARICIOPATRICK [...] [facility] [address] , [place] [address]- [phone] Medications What How Much When Instructions Unchanged [...] your c (more content not included)... Normal [facility] Urology Office/Clinic Noteon 04-16-2024 Urology Office/Clinic Note [...] on 02/18/22. Stone analysis - 70% [place], 30% uric acid. LUIS 04/01/23 - cortical [...] [facility] [address], [place] [address]- [phone] Additional Instructions: 1 yr w/ KUB Patient Education Kidney Stones, [id number]-[id number]-[id number] IBrenda, personally scribed for Dr. Zeng on [...] data Proced (more content not included)... Normal [facility] Comment on above: Result Comment: Elec tronically Signed By: Micki ZENG MD\.br\Date and Time Signed: 04/16/24 12:29 EDT\.br\Electronically Co-Signed By: Brenda Lopez\.br\Date and Time Co-Signed: 04/16/24 12:28 EDT CBC AUTO DIFFon 07-27-2022 BASO # 0.1 103/ul Normal 0.0-0.1 [facility] Comment on above: Performed By: #### U DINA, LIPID, TSH, BNP, CMP, T7 #### [facility] [address] [address] [address] Suzie Brooks Basophils/100 WBC (Bld) 0.5 % Normal 0.2-2.0 [facility] Comment on above: Performed By: #### U DINA, LIPID, TSH, BNP, CMP, T7 #### [facility] [address] [address] [address] Suzie Brooks EO # 0.4 103/ul Normal 0.0-0.7 [facility] Comment on above: Performed By: #### U DINA, LIPID, TSH, BNP, CMP, T7 #### [facility] [address] [address] [address] Suzie Brooks Eosinophils/100 WBC (Bld) 3.3 % Normal 0.9-7.0 [facility] Comment on above: Performed By: #### U DINA, LIPID, TSH, BNP, CMP, T7 #### [facility] [address] [address] [address] Suzie Brooks Erythrocyte distribution width (RBC) [Ratio] 14.6 % Normal 11.0-15.0 [facility] Comment on above: Performed By: #### U DINA, LIPID, TSH, BNP, CMP, T7 #### [facility] [address] [place] [address] Dr. Suzie Brooks Hematocrit (Bld) [Volume fraction] 42.0 % Normal 42.0-54.0 [facility] Comment on above: Performed By: #### U DINA, LIPID, TSH, BNP, CMP, T7 #### [facility] [address] [place] [address] Dr. Suzie Broosk Hemoglobin (Bld) [Mass/Vol] 14.1 g/dL Normal 14.0-18.0 [facility] Comment on above: Performed By: #### U DINA, LIPID, TSH, BNP, CMP, T7 #### [facility] [address] [place] [address] Dr. Suzie Brooks IG # 0.03 10e3/ul Normal 0.00-0.03 [facility] Comment on above: Performed By: #### U DINA, LIPID, TSH, BNP, CMP, T7 #### [facility] [address] [place] [address] Dr. Suzie Brooks IG % 0.3 % Normal 0.0-0.5 [facility] Comment on above: Performed By: #### U DINA, LIPID, TSH, BNP, CMP, T7 #### [facility] [address] [place] [address] Dr. Suzie Brooks LYMPH # 3.1 103/ul Normal 1.2-3.8 [facility] Comment on above: Performed By: #### U DINA, LIPID, TSH, BNP, CMP, T7 #### [facility] [address] [place] [address] Dr. Suzie Brooks Lymphocytes/100 WBC (Bld) 28.2 % Normal 20.5-60.0 [facility] Comment on above: Performed By: #### U DINA, LIPID, TSH, BNP, CMP, T7 #### [facility] [address] [address] [address] Suzie Brooks MANUAL DIFF REQ NO Normal [facility] Comment on above: Performed By: #### U DINA, LIPID, TSH, BNP, CMP, T7 #### [facility] [address] [address] [address] Suzie Brooks MCH (RBC) [Entitic mass] 28.5 pg Normal 25.9-34.0 [facility] Comment on above: Performed By: #### U DINA, LIPID, TSH, BNP, CMP, T7 #### [facility] [address] [place] [address] Dr. Suzie Brooks MCHC (RBC) [Mass/Vol] 33.6 g/dL Normal 29.9-35.2 [facility] Comment on above: Performed By: #### U DINA, LIPID, TSH, BNP, CMP, T7 #### [facility] [address] [place] [address] Dr. Suzie Brooks MCV (RBC) [Entitic vol] 85.0 fL Normal 80.0-94.0 [facility] Comment on above: Performed By: #### U DINA, LIPID, TSH, BNP, CMP, T7 #### [facility] [address] [place] [address] Dr. Suzie Brooks MONO # 0.8 103/ul Normal 0.3-0.8 [facility] Comment on above: Performed By: #### U DINA, LIPID, TSH, BNP, CMP, T7 #### [facility] [address] [place] [address] Dr. Suzie Brooks Monocytes/100 WBC (Bld) 7.2 % Normal 1.7-12.0 [facility] Comment on above: Performed By: #### U DINA, LIPID, TSH, BNP, CMP, T7 #### [facility] [address] [place] [address] Dr. Suzie Brooks NEUT # 6.7 103/ul Critically high 1.4-6.5 [facility] Comment on above: Performed By: #### U DINA, LIPID, TSH, BNP, CMP, T7 #### [facility] [address] [address] [address] Suzie Brooks Neutrophils/100 WBC (Bld) 60.5 % Normal 43.0-75.0 [facility] Comment on above: Performed By: #### U DINA, LIPID, TSH, BNP, CMP, T7 #### [facility] [address] [address] [address] Suzie Brooks Platelet mean volume (Bld) [Entitic vol] 9.6 fL Normal 9.5-13.5 [facility] Comment on above: Performed By: #### U DINA, LIPID, TSH, BNP, CMP, T7 #### [facility] [address] [place] [address] Dr. Suzie Brooks PLT 266 103/ul Normal 150-450 [facility] Comment on above: Performed By: #### U DINA, LIPID, TSH, BNP, CMP, T7 #### [facility] [address] [place] [address] Dr. Suzie Brooks RBC 4.94 106/ul Normal 4.70-6.10 [facility] Comment on above: Performed By: #### U DINA, LIPID, TSH, BNP, CMP, T7 #### [facility] [address] [place] [address] Dr. Suzie Brooks WBC 11.1 103/ul Critically high 4.0-11.0 [facility] Comment on above: Performed By: #### U DINA, LIPID, TSH, BNP, CMP, T7 #### [facility] [address] [place] [address] Dr. Suzie Brooks PROF 14(COMP METB)on 022 Albumin [Mass/Vol] 3.2 g/dL Critically low 3.4-5.0 [facility] Comment on above: Performed By: #### C VDTBH #### [facility] [address] [place] [address] Dr. Suzie Brooks Albumin/Globulin [Mass ratio] 0.9 {ratio} Normal [facility] Comment on above: Performed By: #### C VDTBH #### [facility] [address] [address] [address] Suzie Brooks ALP [Catalytic activity/Vol] 60 U/L Normal 46-116 [facility] Comment on above: Performed By: #### C VDTBH #### [facility] [address] [address] [address] Suzie Brooks ALT [Catalytic activity/Vol] 27 U/L Normal 16-63 [facility] Comment on above: Performed By: #### C VDTBH #### [facility] [address] [address] [address] Suzie Brooks Anion gap [Moles/Vol] 10.4 mmol/L Normal [facility] Comment on above: Performed By: #### C VDTBH #### [facility] [address] [place] [address] Dr. Suzie Brooks AST [Catalytic activity/Vol] 23 U/L Normal 15-37 [facility] Comment on above: Performed By: #### C VDTBH #### [facility] [address] [address] [address] Suzie Brooks Bilirubin [Mass/Vol] 0.4 mg/dL Normal 0.2-1.0 [facility] Comment on above: Performed By: #### C VDTBH #### [facility] [address] [place] [address] Dr. Suzie Brooks Calcium [Mass/Vol] 8.4 mg/dL Critically low 8.5-10.1 [facility] Comment on above: Performed By: #### C VDTBH #### [facility] [address] [place] [address] Dr. Suzie Brooks Chloride [Moles/Vol] 104 mmol/L Normal 98-107 [facility] Comment on above: Performed By: #### C VDTBH #### [facility] [address] [address] [address] Suzie Brooks CO2 [Moles/Vol] 26.1 mmol/L Normal 21.0-32.0 [facility] Comment on above: Performed By: #### C VDTBH #### [facility] [address] [address] [address] Suzie Brooks Creatinine [Mass/Vol] 0.90 mg/dL Normal 0.70-1.30 [facility] Comment on above: Performed By: #### C VDTBH #### [facility] [address] [place] [address] Dr. Suzie Brooks EGFR-AF ZIMBABWEAN >60 Normal >=60 [facility] Comment on above: Performed By: #### C VDTBH #### [facility] [address] [address] [address] Suzie Brooks EGFR-NON AF ZIMBABWEAN >60 Normal >=60 [facility] Comment on above: Performed By: #### C VDTBH #### [facility] [address] [place] [address] Dr. Suzie Brooks Globulin (S) [Mass/Vol] 3.4 g/dL Normal [facility] Comment on above: Performed By: #### C VDTBH #### [facility] [address] [place] [address] Dr. Suzie Brooks Glucose [Mass/Vol] 111 mg/dL Critically high 74-106 [facility] Comment on above: Performed By: #### C VDTBH #### [facility] [address] [place] [address] Dr. Suzie Brooks Potassium [Moles/Vol] 3.5 mmol/L Normal 3.5-5.1 [facility] Comment on above: Performed By: #### C VDTBH #### [facility] [address] [place] [address] Dr. Suzie Brooks Protein [Mass/Vol] 6.6 g/dL Normal 6.4-8.[address] [facility] Comment on above: Performed By: #### C VDTBH #### [facility] [address] [place] [address] Dr. Suzie Brooks Sodium [Moles/Vol] 137 mmol/L Normal 136-[address] [facility] Comment on above: Performed By: #### C VDTBH #### [facility] [address] [place] [address] Dr. Suzie Brooks Urea nitrogen [Mass/Vol] 13.0 mg/dL Normal 7.0-18.0 [facility] Comment on above: Performed By: #### C VDTBH #### [facility] [address] [place] [address] Dr. Suzie Brooks Urea nitrogen/Creatinine [Mass ratio] 14.4 mg/mg Normal [facility] Comment on above: Performed By: #### C VDTBH #### [facility] [address] [place] [address] Dr. Suzie Brooks BNPon 07-26-2022 Natriuretic peptide B (Bld) [Mass/Vol] 118.0 pg/mL Normal <=900.0 [facility] Comment on above: Performed By: #### U DINA, LIPID, TSH, BNP, CMP, T7 #### [facility] [address] [place] [address] Dr. Suzie Brooks CARDIAC MJ 3-6on 2 CK [Catalytic activity/Vol] 240 U/L Normal 39-308 [facility] Comment on above: Performed By: #### U DINA, LIPID, TSH, BNP, CMP, T7 #### [facility] [address] [place] [address] Dr. Suzie Brooks CK.MB [Mass/Vol] 3.43 ng/mL Normal <=3.60 [facility] Comment on above: Performed By: #### U DINA, LIPID, TSH, BNP, CMP, T7 #### [facility] [address] [place] [address] Dr. Suzie Brooks HSTROP 8.6 pg/mL Normal 4.0-76.1 [facility] Comment on above: Result Comment: CUT- OFF POINTS HAVE BEEN ESTABLISHED BASED ON THE FOURTH UNIVERSAL DEFINITIONS OF MYOCARDIAL INFARCTION. THE UPPER REFERENCE LIMIT (URL) OF TROPONIN, DEFINED THE 99TH PERCENTILE OF cTnI DISTRIBUTION IN A REFERENCE POPULATION, HAS BEEN CONFIRMED THE DECISION THRESHOLD FOR PR DIAGNOSIS. Performed By: #### U DINA, LIPID, TSH, BNP, CMP, T7 #### [facility] [address] [address] [address] Suzie Brooks CK [Catalytic activity/Vol] 239 U/L Normal 39-308 [facility] Comment on above: Performed By: #### M AG24 #### [facility] [address] [place] [address] Dr. Suzie Brooks CK.MB [Mass/Vol] 2.93 ng/mL Normal <=3.60 [facility] Comment on above: Performed By: #### M AG24 #### [facility] [address] [place] [address] Dr. Suzie Brooks HSTROP 10.4 pg/mL Normal 4.0-76.1 [facility] Comment on above: Result Comment: CUT- OFF POINTS HAVE BEEN ESTABLISHED BASED ON THE FOURTH UNIVERSAL DEFINITIONS OF MYOCARDIAL INFARCTION. THE UPPER REFERENCE LIMIT (URL) OF TROPONIN, DEFINED THE 99TH PERCENTILE OF cTnI DISTRIBUTION IN A REFERENCE POPULATION, HAS BEEN CONFIRMED THE DECISION THRESHOLD FOR PR DIAGNOSIS. Performed By: #### M AG24 #### [facility] [address] [place] [address] Dr. Suzie Brooks CARDIAC MJ ADMITon 07-26- 022 CK [Catalytic activity/Vol] 234 U/L Normal 39-308 [facility] Comment on above: Performed By: #### O X24HR #### [facility] [address] [place] [address] Dr. Suzie Brooks CK.MB [Mass/Vol] 3.37 ng/mL Normal <=3.60 [facility] Comment on above: Performed By: #### O X24HR #### [facility] [address] [place] [address] Dr. Suzie Brooks HSTROP 9.0 pg/mL Normal 4.0-76.1 [facility] Comment on above: Result Comment: CUT- OFF POINTS HAVE BEEN ESTABLISHED BASED ON THE FOURTH UNIVERSAL DEFINITIONS OF MYOCARDIAL INFARCTION. THE UPPER REFERENCE LIMIT (URL) OF TROPONIN, DEFINED THE 99TH PERCENTILE OF cTnI DISTRIBUTION IN A REFERENCE POPULATION, HAS BEEN CONFIRMED THE DECISION THRESHOLD FOR PR DIAGNOSIS. Performed By: #### O X24HR #### [facility] [address] [address] [address] Suzie Brooks EDIE 85 ng/mL Normal 16-96 [facility] Comment on above: Performed By: #### O X24HR #### [facility] [address] [place] [address] Dr. Suzie Brooks CBC AUTO DIFFon 07-26-2022 BASO # 0.1 103/ul Normal 0.0-0.1 [facility] Comment on above: Performed By: #### U DINA, LIPID, TSH, BNP, CMP, T7 #### [facility] [address] [place] [address] Dr. Suzie Brooks Basophils/100 WBC (Bld) 0.4 % Normal 0.2-2.0 [facility] Comment on above: Performed By: #### U DINA, LIPID, TSH, BNP, CMP, T7 #### [facility] [address] [place] [address] Dr. Suzie Brooks EO # 0.3 103/ul Normal 0.0-0.7 [facility] Comment on above: Performed By: #### U DINA, LIPID, TSH, BNP, CMP, T7 #### [facility] [address] [place] [address] Dr. Suzie Brooks Eosinophils/100 WBC (Bld) 2.5 % Normal 0.9-7.0 [facility] Comment on above: Performed By: #### U DINA, LIPID, TSH, BNP, CMP, T7 #### [facility] [address] [place] [address] Dr. Suzie Brooks Erythrocyte distribution width (RBC) [Ratio] 14.4 % Normal 11.0-15.0 [facility] Comment on above: Performed By: #### U DINA, LIPID, TSH, BNP, CMP, T7 #### [facility] [address] [place] [address] Dr. Suzie Brooks Hematocrit (Bld) [Volume fraction] 46.0 % Normal 42.0-54.0 [facility] Comment on above: Performed By: #### U DINA, LIPID, TSH, BNP, CMP, T7 #### [facility] [address] [place] [address] Dr. Suzie Brooks Hemoglobin (Bld) [Mass/Vol] 15.6 g/dL Normal 14.0-18.0 [facility] Comment on above: Performed By: #### U DINA, LIPID, TSH, BNP, CMP, T7 #### [facility] [address] [address] [address] Suzie Brooks IG # 0.07 10e3/ul Critically high 0.00-0.03 [facility] Comment on above: Performed By: #### U DINA, LIPID, TSH, BNP, CMP, T7 #### [facility] [address] [address] [address] Suzie Brooks IG % 0.6 % Critically high 0.0-0.5 [facility] Comment on above: Performed By: #### U DINA, LIPID, TSH, BNP, CMP, T7 #### [facility] [address] [place] [address] Dr. Suzie Brooks LYMPH # 2.9 103/ul Normal 1.2-3.8 [facility] Comment on above: Performed By: #### U DINA, LIPID, TSH, BNP, CMP, T7 #### [facility] [address] [address] [address] Suzie Brooks Lymphocytes/100 WBC (Bld) 24.2 % Normal 20.5-60.0 [facility] Comment on above: Performed By: #### U DINA, LIPID, TSH, BNP, CMP, T7 #### [facility] [address] [place] [address] Dr. Suzie Brooks MANUAL DIFF REQ NO Normal [facility] Comment on above: Performed By: #### U DINA, LIPID, TSH, BNP, CMP, T7 #### [facility] [address] [address] [address] Suzie Brooks MCH (RBC) [Entitic mass] 28.6 pg Normal 25.9-34.0 [facility] Comment on above: Performed By: #### U DINA, LIPID, TSH, BNP, CMP, T7 #### [facility] [address] [place] [address] Dr. Suzie Brooks MCHC (RBC) [Mass/Vol] 33.9 g/dL Normal 29.9-35.2 [facility] Comment on above: Performed By: #### U DINA, LIPID, TSH, BNP, CMP, T7 #### [facility] [address] [place] [address] Dr. Suzei Brooks MCV (RBC) [Entitic vol] 84.4 fL Normal 80.0-94.0 [facility] Comment on above: Performed By: #### U DINA, LIPID, TSH, BNP, CMP, T7 #### [facility] [address] [place] [address] Dr. Suzie Brooks MONO # 0.8 103/ul Normal 0.3-0.8 [facility] Comment on above: Performed By: #### U DINA, LIPID, TSH, BNP, CMP, T7 #### [facility] [address] [place] [address] Dr. Suzie Brooks Monocytes/100 WBC (Bld) 6.7 % Normal 1.7-12.0 [facility] Comment on above: Performed By: #### U DINA, LIPID, TSH, BNP, CMP, T7 #### [facility] [address] [place] [address] Dr. Suzie Brooks NEUT # 7.8 103/ul Critically high 1.4-6.5 [facility] Comment on above: Performed By: #### U DINA, LIPID, TSH, BNP, CMP, T7 #### [facility] [address] [place] [address] Dr. Suzie Brooks Neutrophils/100 WBC (Bld) 65.6 % Normal 43.0-75.0 [facility] Comment on above: Performed By: #### U DINA, LIPID, TSH, BNP, CMP, T7 #### [facility] [address] [place] [address] Dr. Suzie Brooks Platelet mean volume (Bld) [Entitic vol] 9.7 fL Normal 9.5-13.5 [facility] Comment on above: Performed By: #### U DINA, LIPID, TSH, BNP, CMP, T7 #### [facility] [address] [place], [place] [address] Dr. Suzie Brooks PLT 289 103/ul Normal 150-450 [facility] Comment on above: Performed By: #### U DINA, LIPID, TSH, BNP, CMP, T7 #### [facility] [address] [place] [address] [address] Suzie Brooks RBC 5.45 106/ul Normal 4.70-6.10 [facility] Comment on above: Performed By: #### U DINA, LIPID, TSH, BNP, CMP, T7 #### [facility] [address] [place], [place] [address] Dr. Suzie Brooks WBC 11.9 103/ul Critically high 4.0-11.0 [facility] Comment on above: Performed By: #### U DINA, LIPID, TSH, BNP, CMP, T7 #### [facility] [address] [place], [place] [address] Dr. Suzie Brooks CTA CHEST WO W [...] BEHZAD CARRASQUILLO Date: 2022-07-26 11:59 Normal [facility] Covid-19 PCR (CVDTBH)on 07-11 SARS-CoV-2 (COVID-19) RNA SUKHJINDER+probe Ql (Unsp spec) Not detected Normal NOT DETECTED [facility] Comment on above: Result Comment: When [...] for this test is supported by the Animal Shelter Supervisor of Health and Human Service's declaration that [...] DINA, LIPID, TSH, BNP, CMP, T7 #### [facility] [address] [place] [address] Dr. Suzie Brooks D-DIMERon 07-26-2022 D-DIMER 0.88 mg/L FEU Critically high <=0.[address] [facility] Comment on above: Performed By: #### C VDTB #### [facility] [address] [place] [address] Dr. Suzie Brooks D-DIMER COMMENTS SEE BELOW Normal [facility] Comment on above: Result Comment: Incr [...] hospitalization. Performed By: #### C VDTB #### [facility] [address] [place] [address] Dr. Suzie Brooks ECHOCARDIO M/2D COMPLETEon 1 09-26-2021 ECHOCARDIO M/2D COMPLETE Patient: RIZWAN APARICIO Exam Date: 07/26/2022 : 1950 Gender:M Ordering : DR MARIELLE LERMA . Admission #: [id number] Family : Order #: [id number] CLICK HERE TO VIEW EXAM ECHOCARDIOGRAM REPORT [...] Rios M.D. on 07/26/2022 at 16:[address] [facility] PROF 14(COMP METB)on 022 Albumin [Mass/Vol] 3.6 g/dL Normal 3.4-5.0 [facility] Comment on above: Performed By: #### U DINA, LIPID, TSH, BNP, CMP, T7 #### [facility] [address] [place] [address] [address] Suzie Brooks Albumin/Globulin [Mass ratio] 0.9 {ratio} Normal [facility] Comment on above: Performed By: #### U DINA, LIPID, TSH, BNP, CMP, T7 #### [facility] [address] [place] [address] [address] Suzie Brooks ALP [Catalytic activity/Vol] 70 U/L Normal 46-116 [facility] Comment on above: Performed By: #### U DINA, LIPID, TSH, BNP, CMP, T7 #### [facility] [address] [place], [place] [address] Dr. Suzie Brooks ALT [Catalytic activity/Vol] 30 U/L Normal 16-63 [facility] Comment on above: Performed By: #### U DINA, LIPID, TSH, BNP, CMP, T7 #### [facility] [address] [place] [address] Dr. Suzie Brooks Anion gap [Moles/Vol] 9.2 mmol/L Normal [facility] Comment on above: Performed By: #### U DINA, LIPID, TSH, BNP, CMP, T7 #### [facility] [address] [place] [address] Dr. Suzie Brooks AST [Catalytic activity/Vol] 29 U/L Normal 15-37 [facility] Comment on above: Performed By: #### U DINA, LIPID, TSH, BNP, CMP, T7 #### [facility] [address] [place] [address] Dr. Suzie Brooks Bilirubin [Mass/Vol] 0.5 mg/dL Normal 0.2-1.0 [facility] Comment on above: Performed By: #### U DINA, LIPID, TSH, BNP, CMP, T7 #### [facility] [address] [place] [address] Dr. Suzie Brooks Calcium [Mass/Vol] 8.8 mg/dL Normal 8.5-10.[address] [facility] Comment on above: Performed By: #### U DINA, LIPID, TSH, BNP, CMP, T7 #### [facility] [address] [place] [address] Dr. Suzie Brooks Chloride [Moles/Vol] 102 mmol/L Normal 98-107 [facility] Comment on above: Performed By: #### U DINA, LIPID, TSH, BNP, CMP, T7 #### [facility] [address] [place] [address] Dr. Suzie Brooks CO2 [Moles/Vol] 27.2 mmol/L Normal 21.0-32.0 [facility] Comment on above: Performed By: #### U DINA, LIPID, TSH, BNP, CMP, T7 #### [facility] [address] [place] [address] Dr. Suzie Brooks Creatinine [Mass/Vol] 0.99 mg/dL Normal 0.70-1.30 [facility] Comment on above: Performed By: #### U DINA, LIPID, TSH, BNP, CMP, T7 #### [facility] [address] [place] [address] [address] Suzie Brooks EGFR-AF ZIMBABWEAN >60 Normal >=60 [facility] Comment on above: Performed By: #### U DINA, LIPID, TSH, BNP, CMP, T7 #### [facility] [address] [place] [address] [address] Suzie Brooks EGFR-NON AF ZIMBABWEAN >60 Normal >=60 [facility] Comment on above: Performed By: #### U DINA, LIPID, TSH, BNP, CMP, T7 #### [facility] [address] [place] [address] Dr. Suzie Brooks Globulin (S) [Mass/Vol] 3.9 g/dL Normal [facility] Comment on above: Performed By: #### U DINA, LIPID, TSH, BNP, CMP, T7 #### [facility] [address] [place] [address] [address] Suzie Brooks Glucose [Mass/Vol] 125 mg/dL Critically high 74-106 [facility] Comment on above: Performed By: #### U DINA, LIPID, TSH, BNP, CMP, T7 #### [facility] [address] [place] [address] Dr. Suzie Brooks Potassium [Moles/Vol] 3.4 mmol/L Critically low 3.5-5.1 [facility] Comment on above: Performed By: #### U DINA, LIPID, TSH, BNP, CMP, T7 #### [facility] [address] [place] [address] Dr. Suzie Brooks Protein [Mass/Vol] 7.5 g/dL Normal 6.4-8.2 [facility] Comment on above: Performed By: #### U DINA, LIPID, TSH, BNP, CMP, T7 #### [facility] [address] [place] [address] Dr. Suzie Brooks Sodium [Moles/Vol] 135 mmol/L Critically low 136-145 [facility] Comment on above: Performed By: #### U DINA, LIPID, TSH, BNP, CMP, T7 #### [facility] [address] [place] [address] Dr. Suzie Brooks Urea nitrogen [Mass/Vol] 15.0 mg/dL Normal 7.0-18.0 [facility] Comment on above: Performed By: #### U DINA, LIPID, TSH, BNP, CMP, T7 #### [facility] [address] [place] [address] Dr. Suzie Brooks Urea nitrogen/Creatinine [Mass ratio] 15.2 mg/mg Normal [facility] Comment on above: Performed By: #### U DINA, LIPID, TSH, BNP, CMP, T7 #### [facility] [address] [place] [address] Dr. Suzie Brooks PROTIMEon 07-26-2022 INR Coag (PPP) [Relative time] 0.95 {INR} Normal [facility] Comment on above: Performed By: #### C VDTBH #### [facility] [address] [place] [address] Dr. Suzie Brooks INR GUIDELINES SEE BELOW Normal [facility] Comment on above: Result Comment: TOMMY RED INR: 2.0 - 3.0 CONDITIONS NOT LISTED BELOW 2.5 - 3.5 FOR PROSTHETIC HEART VALVE REPLACEMENT 2.5 - 3.5 RECURRENT THROMBOSIS Performed By: #### C VDTBH #### [facility] [address] [place] [address] Dr. Suzie Brooks PT Coag (PPP) [Time] 10.3 s Normal 9.0-11.6 [facility] Comment on above: Performed By: #### C VDTBH #### [facility] [address] [place] [address] Dr. Suzie Brooks PTTon 07-26-2022 aPTT Coag (Bld) [Time] 28.2 s Normal 22.3-36.2 [facility] Comment on above: Performed By: #### C VDTBH #### [facility] [address] [place] [address] Dr. Suzie Brooks TSHon 07-26-2022 TSH 2.000 uIU/mL Normal 0.358-3.740 [facility] Comment on above: Performed By: #### O X24HR #### [facility] [address] [place] [id number] Suzie Brooks XR CHEST 1 Von [...] BEHZAD CARRASQUILLO Date: 2022-07-26 10:51 Normal [facility] CREATININEon 07-18-2022 Creatinine [Mass/Vol] 0.93 mg/dL Normal 0.70-1.30 [facility] Comment on above: Performed By: #### U IDNA, LIPID, TSH, BNP, CMP, T7 #### [facility] [address] [place] [id number] [address] Suzie Brooks EGFR-AF ZIMBABWEAN >60 Normal >=60 [facility] Comment on above: Performed By: #### U DINA, LIPID, TSH, BNP, CMP, T7 #### [facility] [address] [place] [id number] [address] Suzie Brooks EGFR-NON AF ZIMBABWEAN >60 Normal >=60 [facility] Comment on above: Performed By: #### U DINA, LIPID, TSH, BNP, CMP, T7 #### [facility] [address] [place], [place] [address] Dr. Suzie Brooks XR IVPon 07-18-2022 XR IVP EXAMINATION: XR IVP HISTORY: Kidney stone COMPARISON: XR KUB 11/21/2021, CT abdomen pelvis 02/16/2022 TECHNIQUE: After obtaining patient consent a program director scouting image was obtained followed by injection of [...] BEHZAD CARRASQUILLO Date: 2022-07-18 11:50 Normal [facility] INSULINon 05-16-2022 Insulin 59.0 uIU/mL Critically high 2.6-24.9 [facility] Comment on above: Performed By: #### U DINA, LIPID, TSH, BNP, CMP, T7 #### [facility] [address] [place] [address] Dr. Suzie Brooks BNPon 05-15-2022 Natriuretic peptide B (Bld) [Mass/Vol] 81.0 pg/mL Normal <=900.0 [facility] Comment on above: Performed By: #### U DINA, LIPID, TSH, BNP, CMP, T7 #### [facility] [address] [place] [address] [address] Suzie Brooks CBC AUTO DIFFon 05-15-2022 BASO # 0.1 103/ul Normal 0.0-0.1 [facility] Comment on above: Performed By: #### C VDTBH #### [facility] [address] [place] [address] Dr. Suzie Brooks Basophils/100 WBC (Bld) 0.6 % Normal 0.2-2.0 [facility] Comment on above: Performed By: #### C VDTBH #### [facility] [address] [place] [address] Dr. Suzie Brooks EO # 0.3 103/ul Normal 0.0-0.7 [facility] Comment on above: Performed By: #### C VDTBH #### [facility] [address] [place] [address] Dr. Suzie Brooks Eosinophils/100 WBC (Bld) 2.9 % Normal 0.9-7.0 [facility] Comment on above: Performed By: #### C VDTBH #### [facility] [address] [place] [address] Dr. Suzie Brooks Erythrocyte distribution width (RBC) [Ratio] 14.1 % Normal 11.0-15.0 [facility] Comment on above: Performed By: #### C VDTBH #### [facility] [address] [place] [address] Dr. Suzie Brooks Hematocrit (Bld) [Volume fraction] 46.7 % Normal 42.0-54.0 [facility] Comment on above: Performed By: #### C VDTBH #### [facility] [address] [place] [address] Dr. Suzie Brooks Hemoglobin (Bld) [Mass/Vol] 15.4 g/dL Normal 14.0-18.0 [facility] Comment on above: Performed By: #### C VDTBH #### [facility] [address] [place] [address] Dr. Suzie Brooks IG # 0.03 10e3/ul Normal 0.00-0.03 [facility] Comment on above: Performed By: #### C VDTBH #### [facility] [address] [place] [address] Dr. Suzie Brooks IG % 0.3 % Normal 0.0-0.5 [facility] Comment on above: Performed By: #### C VDTBH #### [facility] [address] [place] [address] Dr. Suzie Brooks LYMPH # 2.6 103/ul Normal 1.2-3.8 [facility] Comment on above: Performed By: #### C VDTBH #### [facility] [address] [place] [address] Dr. Suzie Brooks Lymphocytes/100 WBC (Bld) 25.1 % Normal 20.5-60.0 [facility] Comment on above: Performed By: #### C VDTBH #### [facility] [address] [place] [address] Dr. Suzie Brooks MANUAL DIFF REQ NO Normal [facility] Comment on above: Performed By: #### C VDTBH #### [facility] [address] [place] [address] Dr. Suzie Brooks MCH (RBC) [Entitic mass] 28.6 pg Normal 25.9-34.0 [facility] Comment on above: Performed By: #### C VDTBH #### [facility] [address] [place] [address] Dr. Suzie Brooks MCHC (RBC) [Mass/Vol] 33.0 g/dL Normal 29.9-35.2 [facility] Comment on above: Performed By: #### C VDTBH #### [facility] [address] [place] [address] Dr. Suzie Brooks MCV (RBC) [Entitic vol] 86.8 fL Normal 80.0-94.0 [facility] Comment on above: Performed By: #### C VDTBH #### [facility] [address] [place] [address] Dr. Suzie Brooks MONO # 0.7 103/ul Normal 0.3-0.8 [facility] Comment on above: Performed By: #### C VDTBH #### [facility] [address] [place] [address] Dr. Suzie Brooks Monocytes/100 WBC (Bld) 6.8 % Normal 1.7-12.0 [facility] Comment on above: Performed By: #### C VDTBH #### [facility] [address] [place] [address] Dr. Suzie Brooks NEUT # 6.5 103/ul Normal 1.4-6.5 [facility] Comment on above: Performed By: #### C VDTBH #### [facility] [address] [place] [address] [address] Suzie Brooks Neutrophils/100 WBC (Bld) 64.3 % Normal 43.0-75.0 [facility] Comment on above: Performed By: #### C VDTBH #### [facility] [address] [place] [address] [address] Suzie Brooks Platelet mean volume (Bld) [Entitic vol] 9.5 fL Normal 9.5-13.5 [facility] Comment on above: Performed By: #### C VDTBH #### [facility] [address] [place] [address] Dr. Suzie Brooks PLT 273 103/ul Normal 150-450 [facility] Comment on above: Performed By: #### C VDTBH #### [facility] [address] [place] [address] Dr. Suzie Brooks RBC 5.38 106/ul Normal 4.70-6.10 [facility] Comment on above: Performed By: #### C VDTBH #### [facility] [address] [place] [address] Dr. Suzie Brooks WBC 10.2 103/ul Normal 4.0-11.0 [facility] Comment on above: Performed By: #### C VDTBH #### [facility] [address] [place] [address] Dr. Suzie Brooks FREE THYROXINE INDEX T7on FTI 2.23 Normal 1.30-4.50 [facility] Comment on above: Performed By: #### U DINA, LIPID, TSH, BNP, CMP, T7 #### [facility] [address] [place] [address] Dr. Suzie Brooks T3U 36.0 % Normal 33.0-40.0 [facility] Comment on above: Performed By: #### U DINA, LIPID, TSH, BNP, CMP, T7 #### [facility] [address] [place] [address] Dr. Suzie Brooks T4 [Mass/Vol] 6.20 ug/dL Normal 4.50-12.10 [facility] Comment on above: Performed By: #### U DINA, LIPID, TSH, BNP, CMP, T7 #### [facility] [address] [place] [address] [address] Suzie Brooks GLYCOHEMOGLOBIN A1Con 2021 ADA RECOMMENDATION SEE BELOW Normal [facility] Comment on above: Result Comment: ADA RECOMMENDED LIMIT 4.0 - 6.0 ADA THERAPEUTIC TARGET < 7.0 ACTION SUGGESTED > 7.0 Performed By: #### U DINA, LIPID, TSH, BNP, CMP, T7 #### [facility] [address] [place] [address] [address] Suzie Brooks Glucose [Mass/Vol] 111 mg/dL Normal [facility] Comment on above: Performed By: #### U DINA, LIPID, TSH, BNP, CMP, T7 #### [facility] [address] [place] [address] [address] Suzie Brooks HbA1c (Bld) [Mass fraction] 5.5 % Normal 4.5-6.2 [facility] Comment on above: Performed By: #### U DINA, LIPID, TSH, BNP, CMP, T7 #### [facility] [address] [place] [address] [address] Suzie Brooks LIPID PROFILEon 05-15-2022 CHOL-HDL RATIO NORM SEE BELOW Normal [facility] Comment on above: Result Comment: 3.3 - 4.4 LOW RISK 4.4 - 7.1 AVERAGE RISK 7.1 - 11.0 MODERATE RISK >11.0 HIGH RISK Performed By: #### U DINA, LIPID, TSH, BNP, CMP, T7 #### [facility] [address] [place] [address] [address] Suzie Brooks Cholesterol [Mass/Vol] 136 mg/dL Normal <=200 [facility] Comment on above: Performed By: #### U DINA, LIPID, TSH, BNP, CMP, T7 #### [facility] [address] [place] [address] [address] Suzie Brooks Cholesterol in HDL [Mass/Vol] 34 mg/dL Critically low 40-60 [facility] Comment on above: Performed By: #### U DINA, LIPID, TSH, BNP, CMP, T7 #### [facility] [address] [place] [address] [address] Suzei Brooks Cholesterol in LDL [Mass/Vol] 49.8 mg/dL Normal [facility] Comment on above: Performed By: #### U DINA, LIPID, TSH, BNP, CMP, T7 #### [facility] [address] [place] [address] [address] Suzie Brooks Cholesterol.total/Ch olesterol in HDL [Mass ratio] 4.0 {ratio} Normal [facility] Comment on above: Performed By: #### U DINA, LIPID, TSH, BNP, CMP, T7 #### [facility] [address] [place] [address] [address] Suzie Brooks HDL NORMAL > or = 60 mg/dl - LO W CARDIOVASCULAR RISK <40 mg/dl - HIGH CARDIOVASCULAR RISK Normal [facility] Comment on above: Performed By: #### U DINA, LIPID, TSH, BNP, CMP, T7 #### [facility] [address] [place] [address] [address] Suzie Brooks LDL CALC NORMAL SEE BELOW Normal [facility] Comment on above: Result Comment: <100 mg/dl OPTIMAL 100 - 129 mg/dl NEAR OR ABOVE OPTIMAL 130 - 159 mg/dl BORDERLINE HIGH 160 - 189 mg/dl HIGH >190 mg/dl VERY HIGH Performed By: #### U DINA, LIPID, TSH, BNP, CMP, T7 #### [facility] [address] [place] [address] [address] Suzie Brooks Triglyceride [Mass/Vol] 261 mg/dL Critically high <=150 [facility] Comment on above: Performed By: #### U DINA, LIPID, TSH, BNP, CMP, T7 #### [facility] [address] [place] [address] [address] Suzie Brooks VLDL CALC 52.2 mg/dL Normal [facility] Comment on above: Performed By: #### U DINA, LIPID, TSH, BNP, CMP, T7 #### [facility] [address] [address] [address] Suzie Brooks PROF 14(COMP METB)on 022 Albumin [Mass/Vol] 3.6 g/dL Normal 3.4-5.0 [facility] Comment on above: Performed By: #### U DINA, LIPID, TSH, BNP, CMP, T7 #### [facility] [address] [place] [address] Dr. Suzie Brooks Albumin/Globulin [Mass ratio] 0.9 {ratio} Normal [facility] Comment on above: Performed By: #### U DINA, LIPID, TSH, BNP, CMP, T7 #### [facility] [address] [place] [address] Dr. Suzie Brooks ALP [Catalytic activity/Vol] 60 U/L Normal 46-116 [facility] Comment on above: Performed By: #### U DINA, LIPID, TSH, BNP, CMP, T7 #### [facility] [address] [place] [address] Dr. Suzie Brooks ALT [Catalytic activity/Vol] 36 U/L Normal 16-63 [facility] Comment on above: Performed By: #### U DINA, LIPID, TSH, BNP, CMP, T7 #### [facility] [address] [place] [address] Dr. Suzie Brooks Anion gap [Moles/Vol] 11.7 mmol/L Normal [facility] Comment on above: Performed By: #### U DINA, LIPID, TSH, BNP, CMP, T7 #### [facility] [address] [place] [address] Dr. Suzie Brooks AST [Catalytic activity/Vol] 28 U/L Normal 15-37 [facility] Comment on above: Performed By: #### U DINA, LIPID, TSH, BNP, CMP, T7 #### [facility] [address] [address] [address] Suzie Brooks Bilirubin [Mass/Vol] 0.6 mg/dL Normal 0.2-1.0 [facility] Comment on above: Performed By: #### U DINA, LIPID, TSH, BNP, CMP, T7 #### [facility] [address] [address] [address] Suzie Brooks Calcium [Mass/Vol] 8.8 mg/dL Normal 8.5-10.1 [facility] Comment on above: Performed By: #### U DINA, LIPID, TSH, BNP, CMP, T7 #### [facility] [address] [address] [address] Suzie Brooks Chloride [Moles/Vol] 102 mmol/L Normal 98-107 [facility] Comment on above: Performed By: #### U DINA, LIPID, TSH, BNP, CMP, T7 #### [facility] [address] [address] [address] Suzie Brooks CO2 [Moles/Vol] 27.9 mmol/L Normal 21.0-32.0 [facility] Comment on above: Performed By: #### U DINA, LIPID, TSH, BNP, CMP, T7 #### [facility] [address] [place] [address] Dr. Suzie Brooks Creatinine [Mass/Vol] 0.98 mg/dL Normal 0.70-1.30 [facility] Comment on above: Performed By: #### U DINA, LIPID, TSH, BNP, CMP, T7 #### [facility] [address] [place] [address] Dr. Suzie Brooks EGFR-AF ZIMBABWEAN >60 Normal >=60 [facility] Comment on above: Performed By: #### U DINA, LIPID, TSH, BNP, CMP, T7 #### [facility] [address] [place] [address] Dr. Suzie Brooks EGFR-NON AF ZIMBABWEAN >60 Normal >=60 [facility] Comment on above: Performed By: #### U DINA, LIPID, TSH, BNP, CMP, T7 #### [facility] [address] [address] [address] Suzie Brooks Globulin (S) [Mass/Vol] 3.8 g/dL Normal [facility] Comment on above: Performed By: #### U DINA, LIPID, TSH, BNP, CMP, T7 #### [facility] [address] [address] [address] Suzie Brooks Glucose [Mass/Vol] 107 mg/dL Critically high 74-106 [facility] Comment on above: Performed By: #### U DINA, LIPID, TSH, BNP, CMP, T7 #### [facility] [address] [address] [address] Suzie Brooks Potassium [Moles/Vol] 3.6 mmol/L Normal 3.5-5.1 [facility] Comment on above: Performed By: #### U DINA, LIPID, TSH, BNP, CMP, T7 #### [facility] [address] [place] [address] Dr. Suzie Brooks Protein [Mass/Vol] 7.4 g/dL Normal 6.4-8.[address] [facility] Comment on above: Performed By: #### U DINA, LIPID, TSH, BNP, CMP, T7 #### [facility] [address] [place] [address] Dr. Suzie Brooks Sodium [Moles/Vol] 138 mmol/L Normal 136-[address] [facility] Comment on above: Performed By: #### U DINA, LIPID, TSH, BNP, CMP, T7 #### [facility] [address] [place] [address] Dr. Suzie Brooks Urea nitrogen [Mass/Vol] 12.0 mg/dL Normal 7.0-18.0 [facility] Comment on above: Performed By: #### U DINA, LIPID, TSH, BNP, CMP, T7 #### [facility] [address] [place] [address] Dr. Suzie Brooks Urea nitrogen/Creatinine [Mass ratio] 12.2 mg/mg Normal [facility] Comment on above: Performed By: #### U DINA, LIPID, TSH, BNP, CMP, T7 #### [facility] [address] [place] [address] Dr. Suzie Brooks TSHon 05-15-2022 TSH 2.356 uIU/mL Normal 0.358-3.740 [facility] Comment on above: Performed By: #### U DINA, LIPID, TSH, BNP, CMP, T7 #### [facility] [address] [place] [address] Dr. Suzie Brooks URIC ACID SERUMon 05-15-2022 Urate [Mass/Vol] 5.2 mg/dL Normal 3.5-7.2 [facility] Comment on above: Performed By: #### U DINA, LIPID, TSH, BNP, CMP, T7 #### [facility] [address] [address] [address] Suzie Brooks CALCULI, URINARYon 2 2,[address] [facility] Comment on above: Performed By: #### U DINA, LIPID, TSH, BNP, CMP, T7 #### [facility] [address] [address] [address] Suzie Brooks Ammonium Acid Urate Normal [facility] Comment on above: Performed By: #### U DINA, LIPID, TSH, BNP, CMP, T7 #### [facility] [address] [address] [address] Suzie Brooks Bilirubin Ql (U) Normal [facility] Comment on above: Performed By: #### U DIAN, LIPID, TSH, BNP, CMP, T7 #### [facility] [address] [address] [address] Suzie Brooks Ca Oxalate Dihydrate Normal [facility] Comment on above: Performed By: #### U DINA, LIPID, TSH, BNP, CMP, T7 #### [facility] [address] [address] [address] Suzie Brooks CaHPO4 (Brushite) Normal [facility] Comment on above: Performed By: #### U DINA, LIPID, TSH, BNP, CMP, T7 #### [facility] [address] [address] [address] Suzie Brooks Calcium Bilirubinate Normal [facility] Comment on above: Performed By: #### U DINA, LIPID, TSH, BNP, CMP, T7 #### [facility] [address] [address] [address] Suzie Brooks Calcium Carbonate Normal [facility] Comment on above: Performed By: #### U DINA, LIPID, TSH, BNP, CMP, T7 #### [facility] [address] [address] [address] Suzie Brooks Calcium Oxalate Monohydrate 70 % Normal [facility] Comment on above: Performed By: #### U DINA, LIPID, TSH, BNP, CMP, T7 #### [facility] [address] [address] [address] Suzie Brooks Calcium Palmitate Normal [facility] Comment on above: Performed By: #### U DINA, LIPID, TSH, BNP, CMP, T7 #### [facility] [address] [address] [address] Suzie Brooks Calcium Phosphate Normal [facility] Comment on above: Performed By: #### U DINA, LIPID, TSH, BNP, CMP, T7 #### [facility] [address] [address] [address] Suzie Brooks Calcium Stearate Normal [facility] Comment on above: Performed By: #### U DINA, LIPID, TSH, BNP, CMP, T7 #### [facility] [address] [address] [address] Suzie Brooks Carbonate Apatite Normal [facility] Comment on above: Performed By: #### U DINA, LIPID, TSH, BNP, CMP, T7 #### [facility] [address] [address] [address] Suzie Brooks Cellular Material Normal [facility] Comment on above: Performed By: #### U DINA, LIPID, TSH, BNP, CMP, T7 #### [facility] [address] [address] [address] Suzie Brooks Cholesterol Normal [facility] Comment on above: Performed By: #### U DINA, LIPID, TSH, BNP, CMP, T7 #### [facility] [address] [address] [address] Suzie Brooks Color (U) Brown Normal [facility] Comment on above: Performed By: #### U DINA, LIPID, TSH, BNP, CMP, T7 #### [facility] [address] [address] [address] Suzie Brooks Comment [facility] Comment on above: Performed By: #### U DINA, LIPID, TSH, BNP, CMP, T7 #### [facility] [address] [address] [address] Suzie Brooks Comment Comment Normal [facility] Comment on above: Result Comment: Calc ulus received in liquid. Wet calculi must be dried before analysis, which delays reporting of results. Leaving calculi in liquid (such as water, saline, blood, urine) may lead to changes in composition. Performed By: #### U DINA, LIPID, TSH, BNP, CMP, T7 #### [facility] [address] [address] [address] Suzie Brooks Comment: Comment Normal [facility] Comment on above: Result Comment: Fantasma baez questions regarding Calculi Analysis [facility] at: [phone]. Performed By: #### U DINA, LIPID, TSH, BNP, CMP, T7 #### [facility] [address] [address] [address] Suzie Brooks Composition Comment Normal [facility] Comment on above: Result Comment: Perc entage (Represents the % composition) Performed By: #### U DINA, LIPID, TSH, BNP, CMP, T7 #### [facility] [address] [address] [address] Suzie Brooks Cystine Normal [facility] Comment on above: Performed By: #### U DINA, LIPID, TSH, BNP, CMP, T7 #### [facility] [address] [address] [address] Suzie Brooks Disclaimer: Comment Normal [facility] Comment on above: Result Comment: This test was developed and its performance characteristics determined by [facility]. It has not been cleared or approved by the Food and Drug Administration. Performed By: #### U DINA, LIPID, TSH, BNP, CMP, T7 #### [facility] [address] [address] [address] Suzie Brooks Dried Blood Normal [facility] Comment on above: Performed By: #### U DINA, LIPID, TSH, BNP, CMP, T7 #### [facility] [address] [address] [address] Suzie Brooks Drug or Metabolite Normal [facility] Comment on above: Performed By: #### U DINA, LIPID, TSH, BNP, CMP, T7 #### [facility] [address] [address] [address] Suzie Brooks Hydroxyapatite Normal [facility] Comment on above: Performed By: #### U DINA, LIPID, TSH, BNP, CMP, T7 #### [facility] [address] [address] [address] Suzie Brooks Mg NH4 PO4 (Struvite) [facility] Comment on above: Performed By: #### U DINA, LIPID, TSH, BNP, CMP, T7 #### [facility] [address] [address] [address] Suzie Brooks MgHPO4 (Newberyite) [facility] Comment on above: Performed By: #### U DINA, LIPID, TSH, BNP, CMP, T7 #### [facility] [address] [address] [address] Suzie Brooks Other component(s) Normal [facility] Comment on above: Performed By: #### U DINA, LIPID, TSH, BNP, CMP, T7 #### [facility] [address] [address] [address] Suzie Brooks PDF . [facility] Comment on above: Performed By: #### U DINA, LIPID, TSH, BNP, CMP, T7 #### [facility] [address] [address] [address] Suzie Brooks Photo Comment [facility] Comment on above: Result Comment: Phot ograph will follow under a separate cover Performed By: #### U DINA, LIPID, TSH, BNP, CMP, T7 #### [facility] [address] [address] [address] Suzie Brooks Please note: Comment [facility] Comment on above: Result Comment: Calc shamika report will follow via computer, mail or spring upholsterer delivery. Performed By: #### U DINA, LIPID, TSH, BNP, CMP, T7 #### [facility] [address] [address] [address] Suzie Brooks Size 6x4 [facility] Comment on above: Result Comment: Mult iple pieces received. Dimensions of the largest piece reported. Performed By: #### U DINA, LIPID, TSH, BNP, CMP, T7 #### [facility] [address] [address] [address] Suzie Brooks Sodium Acid Urate Normal [facility] Comment on above: Performed By: #### U DINA, LIPID, TSH, BNP, CMP, T7 #### [facility] [address] [address] [address] Suzie Brooks Source Comment [facility] Comment on above: Result Comment: Not provided Performed By: #### U DINA, LIPID, TSH, BNP, CMP, T7 #### [facility] [address] [address] [address] Suzie Brooks Triamterene [facility] Comment on above: Performed By: #### U DINA, LIPID, TSH, BNP, CMP, T7 #### [facility] [address] [address] [address] Suzie Brooks Uric Acid 30 % [facility] Comment on above: Performed By: #### U DINA, LIPID, TSH, BNP, CMP, T7 #### [facility] [address] [address] [address] Suzie Brooks Uric Acid Dihydrate Normal [facility] Comment on above: Performed By: #### U DINA, LIPID, TSH, BNP, CMP, T7 #### [facility] [address] [address] [address] Suzie Brooks Weight 99 mg [facility] Comment on above: Performed By: #### U DINA, LIPID, TSH, BNP, CMP, T7 #### [facility] [address] [address] [address] Suize Brooks Xanthine Normal [facility] Comment on above: Performed By: #### U DINA, LIPID, TSH, BNP, CMP, T7 #### [facility] [address] [address] [address] Suzie Brooks CBC AUTO DIFFon 02-18-2022 BASO # 0.0 103/ul Normal 0.0-0.1 [facility] Comment on above: Performed By: #### U DINA, LIPID, TSH, BNP, CMP, T7 #### [facility] [address] [place] [address] Dr. Suzie Brooks Basophils/100 WBC (Bld) 0.3 % Normal 0.2-2.0 [facility] Comment on above: Performed By: #### U DINA, LIPID, TSH, BNP, CMP, T7 #### [facility] [address] [place] [address] Dr. Suzie Brooks EO # 0.3 103/ul Normal 0.0-0.7 [facility] Comment on above: Performed By: #### U DINA, LIPID, TSH, BNP, CMP, T7 #### [facility] [address] [place] [address] Dr. Suzie Brooks Eosinophils/100 WBC (Bld) 2.3 % Normal 0.9-7.0 [facility] Comment on above: Performed By: #### U DINA, LIPID, TSH, BNP, CMP, T7 #### [facility] [address] [place] [address] Dr. Suzie Brooks Erythrocyte distribution width (RBC) [Ratio] 14.2 % Normal 11.0-15.0 [facility] Comment on above: Performed By: #### U DINA, LIPID, TSH, BNP, CMP, T7 #### [facility] [address] [place] [address] Dr. Suzie Brooks Hematocrit (Bld) [Volume fraction] 41.3 % Critically low 42.0-54.0 [facility] Comment on above: Performed By: #### U DINA, LIPID, TSH, BNP, CMP, T7 #### [facility] [address] [place] [address] Dr. Suzie Brooks Hemoglobin (Bld) [Mass/Vol] 13.4 g/dL Critically low 14.0-18.0 [facility] Comment on above: Performed By: #### U DINA, LIPID, TSH, BNP, CMP, T7 #### [facility] [address] [place] [address] Dr. Suzie Brooks IG # 0.03 10e3/ul Normal 0.00-0.03 [facility] Comment on above: Performed By: #### U DINA, LIPID, TSH, BNP, CMP, T7 #### [facility] [address] [address] [address] Suzie Brooks IG % 0.3 % Normal 0.0-0.5 [facility] Comment on above: Performed By: #### U DINA, LIPID, TSH, BNP, CMP, T7 #### [facility] [address] [place] [address] Dr. Suzie Brooks LYMPH # 2.0 103/ul Normal 1.2-3.8 [facility] Comment on above: Performed By: #### U DINA, LIPID, TSH, BNP, CMP, T7 #### [facility] [address] [place] [address] Dr. Suzie Brooks Lymphocytes/100 WBC (Bld) 18.0 % Critically low 20.5-60.0 [facility] Comment on above: Performed By: #### U DINA, LIPID, TSH, BNP, CMP, T7 #### [facility] [address] [place] [address] Dr. Suzie Brooks MANUAL DIFF REQ NO Normal [facility] Comment on above: Performed By: #### U DINA, LIPID, TSH, BNP, CMP, T7 #### [facility] [address] [place] [address] Dr. Suzie Brooks MCH (RBC) [Entitic mass] 28.8 pg Normal 25.9-34.0 [facility] Comment on above: Performed By: #### U DINA, LIPID, TSH, BNP, CMP, T7 #### [facility] [address] [place] [address] Dr. Suzie Brooks MCHC (RBC) [Mass/Vol] 32.4 g/dL Normal 29.9-35.2 [facility] Comment on above: Performed By: #### U DINA, LIPID, TSH, BNP, CMP, T7 #### [facility] [address] [place] [address] Dr. Suzie Brooks MCV (RBC) [Entitic vol] 88.6 fL Normal 80.0-94.0 [facility] Comment on above: Performed By: #### U DINA, LIPID, TSH, BNP, CMP, T7 #### [facility] [address] [place] [address] Dr. Suzie Brooks MONO # 1.0 103/ul Critically high 0.3-0.8 [facility] Comment on above: Performed By: #### U DINA, LIPID, TSH, BNP, CMP, T7 #### [facility] [address] [place] [address] Dr. Suzie Brooks Monocytes/100 WBC (Bld) 9.2 % Normal 1.7-12.0 [facility] Comment on above: Performed By: #### U DINA, LIPID, TSH, BNP, CMP, T7 #### [facility] [address] [place] [address] Dr. Suzie Brooks NEUT # 7.9 103/ul Critically high 1.4-6.5 [facility] Comment on above: Performed By: #### U DINA, LIPID, TSH, BNP, CMP, T7 #### [facility] [address] [place] [address] Dr. Suzie Brooks Neutrophils/100 WBC (Bld) 69.9 % Normal 43.0-75.0 [facility] Comment on above: Performed By: #### U DINA, LIPID, TSH, BNP, CMP, T7 #### [facility] [address] [place] [address] Dr. Suzie Brooks Platelet mean volume (Bld) [Entitic vol] 9.6 fL Normal 9.5-13.5 [facility] Comment on above: Performed By: #### U DINA, LIPID, TSH, BNP, CMP, T7 #### [facility] [address] [place] [address] Dr. Suzie Brooks PLT 218 103/ul Normal 150-450 [facility] Comment on above: Performed By: #### U DINA, LIPID, TSH, BNP, CMP, T7 #### [facility] [address] [place] [address] Dr. Suzie Brooks RBC 4.66 106/ul Critically low 4.70-6.10 [facility] Comment on above: Performed By: #### U DINA, LIPID, TSH, BNP, CMP, T7 #### [facility] [address] [address] [address] Suzie Brooks WBC 11.3 103/ul Critically high 4.0-11.0 [facility] Comment on above: Performed By: #### U DINA, LIPID, TSH, BNP, CMP, T7 #### [facility] [id number] Suzie Brooks CULTURE URINEon 02-18-2022 CULTURE URINE Culture Observations : NO GROWTH. Normal [facility] Comment on above: Performed By: #### M AG24 #### [facility] [address] [address] [address] Suzie Brooks Covid-19 PCR (CVDTBH)on 02-08 SARS-CoV-2 (COVID-19) RNA SUKHJINDER+probe Ql (Unsp spec) Not detected Normal NOT DETECTED [facility] Comment on above: Result Comment: When [...] for this test is supported by the Animal Shelter Supervisor of Health and Human Service's declaration that [...] used). Performed By: #### C VDTBH #### [facility] [address] [place], [place] [id number] Dr. Suzie Brooks PROF 14(COMP METB)on 022 Albumin [Mass/Vol] 3.0 g/dL Critically low 3.4-5.0 [facility] Comment on above: Performed By: #### O X24HR #### [facility] [address] [address] [address] Suzie Brooks Albumin/Globulin [Mass ratio] 0.9 {ratio} Normal [facility] Comment on above: Performed By: #### O X24HR #### [facility] [address] [place] [address] Dr. Suzie Brooks ALP [Catalytic activity/Vol] 49 U/L Normal 46-116 [facility] Comment on above: Performed By: #### O X24HR #### [facility] [address] [place] [address] Dr. Suzie Brooks ALT [Catalytic activity/Vol] 35 U/L Normal 16-63 [facility] Comment on above: Performed By: #### O X24HR #### [facility] [address] [place] [address] Dr. Suzie Brooks Anion gap [Moles/Vol] 11.8 mmol/L Normal [facility] Comment on above: Performed By: #### O X24HR #### [facility] [address] [place] [address] Dr. Suzie Brooks AST [Catalytic activity/Vol] 27 U/L Normal 15-37 [facility] Comment on above: Performed By: #### O X24HR #### [facility] [address] [place] [address] Dr. Suzie Brooks Bilirubin [Mass/Vol] 0.4 mg/dL Normal 0.2-1.0 [facility] Comment on above: Performed By: #### O X24HR #### [facility] [address] [place] [address] Dr. Suzie Brooks Calcium [Mass/Vol] 7.6 mg/dL Critically low 8.5-10.1 [facility] Comment on above: Performed By: #### O X24HR #### [facility] [address] [place] [address] Dr. Suzie Brooks Chloride [Moles/Vol] 106 mmol/L Normal 98-107 [facility] Comment on above: Performed By: #### O X24HR #### [facility] [address] [place] [address] Dr. Suzie Brooks CO2 [Moles/Vol] 26.2 mmol/L Normal 21.0-32.0 [facility] Comment on above: Performed By: #### O X24HR #### [facility] [address] [place] [address] Dr. Suzie Brooks Creatinine [Mass/Vol] 1.08 mg/dL Normal 0.70-1.30 [facility] Comment on above: Performed By: #### O X24HR #### [facility] [address] [place] [address] Dr. Suzie Brooks EGFR-AF ZIMBABWEAN >60 Normal >=60 [facility] Comment on above: Performed By: #### O X24HR #### [facility] [address] [place] [address] Dr. Suzie Brooks EGFR-NON AF ZIMBABWEAN >60 Normal >=60 [facility] Comment on above: Performed By: #### O X24HR #### [facility] [address] [place] [address] Dr. Suzie Brooks Globulin (S) [Mass/Vol] 3.2 g/dL Normal [facility] Comment on above: Performed By: #### O X24HR #### [facility] [address] [place] [address] Dr. Suzie Brooks Glucose [Mass/Vol] 107 mg/dL Critically high 74-106 [facility] Comment on above: Performed By: #### O X24HR #### [facility] [address] [place] [address] Dr. Suzie Brooks Potassium [Moles/Vol] 4.0 mmol/L Normal 3.5-5.1 [facility] Comment on above: Performed By: #### O X24HR #### [facility] [address] [place] [address] Dr. Suzie Brooks Protein [Mass/Vol] 6.2 g/dL Critically low 6.4-8.2 [facility] Comment on above: Performed By: #### O X24HR #### [facility] [address] [place] [address] Dr. Suzie Brooks Sodium [Moles/Vol] 140 mmol/L Normal 136-145 [facility] Comment on above: Performed By: #### O X24HR #### [facility] [address] [place] [address] Dr. Suzie Brooks Urea nitrogen [Mass/Vol] 14.0 mg/dL Normal 7.0-18.0 [facility] Comment on above: Performed By: #### O X24HR #### [facility] [address] [place] [address] Dr. Suzie Brooks Urea nitrogen/Creatinine [Mass ratio] 13.0 mg/mg Normal [facility] Comment on above: Performed By: #### O X24HR #### [facility] [address] [place] [address] Dr. Suzie Brooks CBC AUTO DIFFon 02-17-2022 BASO # 0.1 103/ul Normal 0.0-0.1 [facility] Comment on above: Performed By: #### M AG24 #### [facility] [address] [place] [address] Dr. Suzie Brooks Basophils/100 WBC (Bld) 0.4 % Normal 0.2-2.0 [facility] Comment on above: Performed By: #### M AG24 #### [facility] [address] [place] [address] Dr. Suzie Brooks EO # 0.3 103/ul Normal 0.0-0.7 [facility] Comment on above: Performed By: #### M AG24 #### [facility] [address] [place] [address] Dr. Suzie Brooks Eosinophils/100 WBC (Bld) 2.3 % Normal 0.9-7.0 [facility] Comment on above: Performed By: #### M AG24 #### [facility] [address] [place] [address] Dr. Suzie Brooks Erythrocyte distribution width (RBC) [Ratio] 13.8 % Normal 11.0-15.0 [facility] Comment on above: Performed By: #### M AG24 #### [facility] [address] [place] [address] Dr. Suzie Brooks Hematocrit (Bld) [Volume fraction] 45.2 % Normal 42.0-54.0 [facility] Comment on above: Performed By: #### M AG24 #### [facility] [address] [place] [address] Dr. Suzie Brooks Hemoglobin (Bld) [Mass/Vol] 14.9 g/dL Normal 14.0-18.0 [facility] Comment on above: Performed By: #### M AG24 #### [facility] [address] [address] [address] Suzie Brooks IG # 0.05 10e3/ul Critically high 0.00-0.03 [facility] Comment on above: Performed By: #### M AG24 #### [facility] [address] [place] [address] Dr. Suzie Brooks IG % 0.4 % Normal 0.0-0.5 [facility] Comment on above: Performed By: #### M AG24 #### [facility] [address] [place] [address] Dr. Suzie Brooks LYMPH # 2.5 103/ul Normal 1.2-3.8 [facility] Comment on above: Performed By: #### M AG24 #### [facility] [address] [place] [address] Dr. Suzie Brooks Lymphocytes/100 WBC (Bld) 17.3 % Critically low 20.5-60.0 [facility] Comment on above: Performed By: #### M AG24 #### [facility] [address] [place] [address] Dr. Suzie Brooks MANUAL DIFF REQ NO Normal [facility] Comment on above: Performed By: #### M AG24 #### [facility] [address] [place] [address] Dr. Suzie Brooks MCH (RBC) [Entitic mass] 28.7 pg Normal 25.9-34.0 [facility] Comment on above: Performed By: #### M AG24 #### [facility] [address] [place] [address] Dr. Suzie Brooks MCHC (RBC) [Mass/Vol] 33.0 g/dL Normal 29.9-35.2 [facility] Comment on above: Performed By: #### M AG24 #### [facility] [address] [place] [address] Dr. Suzie Brooks MCV (RBC) [Entitic vol] 87.1 fL Normal 80.0-94.0 [facility] Comment on above: Performed By: #### M AG24 #### [facility] [address] [place] [address] Dr. Suzie Brooks MONO # 1.0 103/ul Critically high 0.3-0.8 [facility] Comment on above: Performed By: #### M AG24 #### [facility] [address] [place] [address] Dr. Suzie Brooks Monocytes/100 WBC (Bld) 6.8 % Normal 1.7-12.0 [facility] Comment on above: Performed By: #### M AG24 #### [facility] [address] [place] [address] Dr. Suzie Brooks NEUT # 10.3 103/ul Critically high 1.4-6.5 [facility] Comment on above: Performed By: #### M AG24 #### [facility] [address] [place] [address] Dr. Suzie Brooks Neutrophils/100 WBC (Bld) 72.8 % Normal 43.0-75.0 [facility] Comment on above: Performed By: #### M AG24 #### [facility] [address] [place] [address] Dr. Suzie Brooks Platelet mean volume (Bld) [Entitic vol] 9.7 fL Normal 9.5-13.5 [facility] Comment on above: Performed By: #### M AG24 #### [facility] [address] [place] [address] Dr. Suzie Brooks PLT 253 103/ul Normal 150-450 [facility] Comment on above: Performed By: #### M AG24 #### [facility] [address] [place] [address] Dr. Suzie Brooks RBC 5.19 106/ul Normal 4.70-6.10 [facility] Comment on above: Performed By: #### M AG24 #### [facility] [address] [place] [address] Dr. Suzie Brooks WBC 14.2 103/ul Critically high 4.0-11.0 [facility] Comment on above: Performed By: #### M AG24 #### [facility] [address] [place] [address] Dr. Suzie Brooks CULTURE BLOODon 02-17-2022 Microscopic examination of blood, culture Culture Observations: NO GROWTH AT [address] [facility] Comment on above: Performed By: #### M AG24 #### [facility] [address] [place] [address] Dr. Suzie Brooks Microscopic examination of blood, culture Culture Observations: NO GROWTH AT [address] [facility] Comment on above: Performed By: #### M AG24 #### [facility] [address] [place] [address] Dr. Suzie Brooks ER URINE PROFILEon Bilirubin Ql (U) Negative Normal NEGATIVE [facility] Comment on above: Performed By: #### E RUR #### [facility] [address] [place] [address] Dr. Suzie Brooks Clarity (U) CLEAR Normal CLEAR [facility] Comment on above: Performed By: #### E RUR #### [facility] [address] [place] [address] Dr. Suzie Brooks Color (U) DK. YELLOW Normal YELLOW [facility] Comment on above: Performed By: #### E RUR #### [facility] [address] [place] [address] Dr. Suzie Brooks ERUDIOGOD A micrscopic examina tion will be performed if indicated. Normal [facility] Comment on above: Performed By: #### E RUR #### [facility] [address] [place] [address] Dr. Suzie Brooks Glucose Ql (U) Negative Normal NEGATIVE [facility] Comment on above: Performed By: #### E RUR #### [facility] [address] [place] [address] Dr. Suzie Brooks Hemoglobin Ql (U) Negative Normal NEGATIVE [facility] Comment on above: Performed By: #### E RUR #### [facility] [address] [place] [address] Dr. Suzie Brooks Ketones Ql (U) Negative Normal NEGATIVE [facility] Comment on above: Performed By: #### E RUR #### [facility] [address] [place] [address] Dr. Suzie Brooks LEUKOCYTES Negative Normal NEGATIVE [facility] Comment on above: Performed By: #### E RUR #### [facility] [address] [place] [address] Dr. Suzie Brooks Nitrite Ql (U) Negative Normal NEGATIVE [facility] Comment on above: Performed By: #### E RUR #### [facility] [address] [place] [address] Dr. Suzie Brooks pH (U) 5.0 [pH] Normal 5-9 [facility] Comment on above: Performed By: #### E RUR #### [facility] [address] [place] [address] Dr. Suzie Brooks SPEC GRAVITY >=1.030 Abnormal 1.005-<=1.[address] [facility] Comment on above: Performed By: #### E RUR #### [facility] [address] [place] [address] Dr. Suzie Brooks UA PROTEIN Negative Normal NEGATIVE/ TRACE [facility] Comment on above: Performed By: #### E RUR #### [facility] [address] [place] [address] Dr. Suzie Brooks UR MICRO IND NOT INDICATED Normal [facility] Comment on above: Performed By: #### E RUR #### [facility] [address] [place] [address] Dr. Suzie Brooks Urobilinogen Qn (U) 0.2 {Behzad'U}/dL Normal 0.2 - 1. 0 [facility] Comment on above: Performed By: #### E RUR #### [facility] [address] [address] [address] Suzie Brooks LACTATE/LACTIC ACIDon 2021 Lactate [Moles/Vol] 1.4 mmol/L Normal 0.4-1.9 [facility] Comment on above: Performed By: #### U DINA, LIPID, TSH, BNP, CMP, T7 #### [facility] [address] [address] [address] Suzie Brooks PROF CHEM 8 (BAS METB)on Anion gap [Moles/Vol] 12.2 mmol/L Normal [facility] Comment on above: Performed By: #### U DINA, LIPID, TSH, BNP, CMP, T7 #### [facility] [address] [address] [address] Suzie Brooks Calcium [Mass/Vol] 8.1 mg/dL Critically low 8.5-10.1 [facility] Comment on above: Performed By: #### U DINA, LIPID, TSH, BNP, CMP, T7 #### [facility] [address] [address] [address] Suzie Brooks Chloride [Moles/Vol] 103 mmol/L Normal 98-107 [facility] Comment on above: Performed By: #### U DINA, LIPID, TSH, BNP, CMP, T7 #### [facility] [address] [address] [address] Suzie Brooks CO2 [Moles/Vol] 26.1 mmol/L Normal 21.0-32.0 [facility] Comment on above: Performed By: #### U DINA, LIPID, TSH, BNP, CMP, T7 #### [facility] [address] [address] [address] Suzie Brooks Creatinine [Mass/Vol] 1.06 mg/dL Normal 0.70-1.30 [facility] Comment on above: Performed By: #### U DINA, LIPID, TSH, BNP, CMP, T7 #### [facility] [address] [address] [address] Suzie Brooks EGFR-AF ZIMBABWEAN >60 Normal >=60 [facility] Comment on above: Performed By: #### U DINA, LIPID, TSH, BNP, CMP, T7 #### [facility] [address] [address] [address] Suzie Brooks EGFR-NON AF ZIMBABWEAN >60 Normal >=60 [facility] Comment on above: Performed By: #### U DINA, LIPID, TSH, BNP, CMP, T7 #### [facility] [address] [address] [address] Suzie Brooks Glucose [Mass/Vol] 138 mg/dL Critically high 74-106 [facility] Comment on above: Performed By: #### U DINA, LIPID, TSH, BNP, CMP, T7 #### [facility] [address] [address] [address] Suzie Brooks Potassium [Moles/Vol] 4.3 mmol/L Normal 3.5-5.1 [facility] Comment on above: Performed By: #### U DINA, LIPID, TSH, BNP, CMP, T7 #### [facility] [address] [address] [address] Suzie Brooks Sodium [Moles/Vol] 137 mmol/L Normal 136-[address] [facility] Comment on above: Performed By: #### U DINA, LIPID, TSH, BNP, CMP, T7 #### [facility] [address] [address] [address] Suzie Brooks Urea nitrogen [Mass/Vol] 14.0 mg/dL Normal 7.0-18.0 [facility] Comment on above: Performed By: #### U DINA, LIPID, TSH, BNP, CMP, T7 #### [facility] [address] [address] [address] Suzie Brooks Urea nitrogen/Creatinine [Mass ratio] 13.2 mg/mg Normal [facility] Comment on above: Performed By: #### U DINA, LIPID, TSH, BNP, CMP, T7 #### [facility] [address] [address] [address] Suzie Brooks TROPONIN, HIGH SENSITIVITYon 02-17-2022 HSTROP 8.4 pg/mL Normal 4.0-76.1 [facility] Comment on above: Result Comment: CUT- OFF POINTS HAVE BEEN ESTABLISHED BASED ON THE FOURTH UNIVERSAL DEFINITIONS OF MYOCARDIAL INFARCTION. THE UPPER REFERENCE LIMIT (URL) OF TROPONIN, DEFINED THE 99TH PERCENTILE OF cTnI DISTRIBUTION IN A REFERENCE POPULATION, HAS BEEN CONFIRMED THE DECISION THRESHOLD FOR PR DIAGNOSIS. Performed By: #### U DINA, LIPID, TSH, BNP, CMP, T7 #### [facility] [address] [place] [address] Dr. Suzie Brooks CBC AUTO DIFFon 02-16-2022 BASO # 0.1 103/ul Normal 0.0-0.1 [facility] Comment on above: Performed By: #### U DINA, LIPID, TSH, BNP, CMP, T7 #### [facility] [address] [place] [address] Dr. Suzie Brooks Basophils/100 WBC (Bld) 0.4 % Normal 0.2-2.0 [facility] Comment on above: Performed By: #### U DINA, LIPID, TSH, BNP, CMP, T7 #### [facility] [address] [place] [address] Dr. Suzie Brooks EO # 0.3 103/ul Normal 0.0-0.7 [facility] Comment on above: Performed By: #### U DINA, LIPID, TSH, BNP, CMP, T7 #### [facility] [address] [place] [address] Dr. Suzie Brooks Eosinophils/100 WBC (Bld) 2.5 % Normal 0.9-7.0 [facility] Comment on above: Performed By: #### U DINA, LIPID, TSH, BNP, CMP, T7 #### [facility] [address] [place] [address] Dr. Suzie Brooks Erythrocyte distribution width (RBC) [Ratio] 13.9 % Normal 11.0-15.0 [facility] Comment on above: Performed By: #### U DINA, LIPID, TSH, BNP, CMP, T7 #### [facility] [address] [place] [address] Dr. Suzie Brooks Hematocrit (Bld) [Volume fraction] 46.6 % Normal 42.0-54.0 [facility] Comment on above: Performed By: #### U DINA, LIPID, TSH, BNP, CMP, T7 #### [facility] [address] [address] [address] Suzie Brooks Hemoglobin (Bld) [Mass/Vol] 15.7 g/dL Normal 14.0-18.0 [facility] Comment on above: Performed By: #### U DINA, LIPID, TSH, BNP, CMP, T7 #### [facility] [address] [address] [address] Suzie Brooks IG # 0.05 10e3/ul Critically high 0.00-0.03 [facility] Comment on above: Performed By: #### U DINA, LIPID, TSH, BNP, CMP, T7 #### [facility] [address] [place] [address] Dr. Suzie Brooks IG % 0.4 % Normal 0.0-0.5 [facility] Comment on above: Performed By: #### U DINA, LIPID, TSH, BNP, CMP, T7 #### [facility] [address] [place] [address] Dr. Suzie Brooks LYMPH # 3.7 103/ul Normal 1.2-3.8 [facility] Comment on above: Performed By: #### U DINA, LIPID, TSH, BNP, CMP, T7 #### [facility] [address] [place] [address] Dr. Suzie Brooks Lymphocytes/100 WBC (Bld) 26.6 % Normal 20.5-60.0 [facility] Comment on above: Performed By: #### U DINA, LIPID, TSH, BNP, CMP, T7 #### [facility] [address] [address] [address] Suzie Brooks MANUAL DIFF REQ NO Normal [facility] Comment on above: Performed By: #### U DINA, LIPID, TSH, BNP, CMP, T7 #### [facility] [address] [place] [address] Dr. Suzie Brooks MCH (RBC) [Entitic mass] 29.2 pg Normal 25.9-34.0 [facility] Comment on above: Performed By: #### U DINA, LIPID, TSH, BNP, CMP, T7 #### [facility] [address] [address] [address] [facility] [Mass/Vol] 33.7 g/dL Normal 29.9-35.2 [facility] Comment on above: Performed By: #### U DINA, LIPID, TSH, BNP, CMP, T7 #### [facility] [address] [address] [address] Suzie Brooks MCV (RBC) [Entitic vol] 86.6 fL Normal 80.0-94.0 [facility] Comment on above: Performed By: #### U DINA, LIPID, TSH, BNP, CMP, T7 #### [facility] [address] [place] [address] Dr. Suzie Brooks MONO # 1.0 103/ul Critically high 0.3-0.8 [facility] Comment on above: Performed By: #### U DINA, LIPID, TSH, BNP, CMP, T7 #### [facility] [address] [place] [address] Dr. Suzie Brooks Monocytes/100 WBC (Bld) 7.2 % Normal 1.7-12.0 [facility] Comment on above: Performed By: #### U DINA, LIPID, TSH, BNP, CMP, T7 #### [facility] [address] [place] [address] Dr. Suzie Brooks NEUT # 8.7 103/ul Critically high 1.4-6.5 [facility] Comment on above: Performed By: #### U DINA, LIPID, TSH, BNP, CMP, T7 #### [facility] [address] [place] [address] Dr. Suzie Brooks Neutrophils/100 WBC (Bld) 62.9 % Normal 43.0-75.0 [facility] Comment on above: Performed By: #### U DINA, LIPID, TSH, BNP, CMP, T7 #### [facility] [address] [place] [address] Dr. Suzie Brooks Platelet mean volume (Bld) [Entitic vol] 9.4 fL Critically low 9.5-13.5 [facility] Comment on above: Performed By: #### U DINA, LIPID, TSH, BNP, CMP, T7 #### [facility] [address] [place], [place] [address] Dr. Suzie Brooks PLT 277 103/ul Normal 150-450 [facility] Comment on above: Performed By: #### U DINA, LIPID, TSH, BNP, CMP, T7 #### [facility] [address] [place], [place] [address] Dr. Suzie Brooks RBC 5.38 106/ul Normal 4.70-6.10 [facility] Comment on above: Performed By: #### U DINA, LIPID, TSH, BNP, CMP, T7 #### [facility] [address] [place], [place] [address] Dr. Suzie Brooks WBC 13.8 103/ul Critically high 4.0-11.0 [facility] Comment on above: Performed By: #### U DINA, LIPID, TSH, BNP, CMP, T7 #### [facility] [address] [place], [place] [address] ABD/PELVIS WO CONon [...] Reilly CAST Date: 2022-02-16 20:51 Normal [facility] ER URINE PROFILEon 2 Bilirubin Ql (U) Negative Normal NEGATIVE [facility] Comment on above: Performed By: #### U DINA, LIPID, TSH, BNP, CMP, T7 #### [facility] [address] [address] [address] Suzie Brooks Clarity (U) CLEAR Normal CLEAR [facility] Comment on above: Performed By: #### U DINA, LIPID, TSH, BNP, CMP, T7 #### [facility] [address] [address] [address] Suzie Brooks Color (U) YELLOW Normal YELLOW [facility] Comment on above: Performed By: #### U IDNA, LIPID, TSH, BNP, CMP, T7 #### [facility] [address] [address] [address] Suzie Brooks ERUAHD A micrscopic examina tion will be performed if indicated. Normal [facility] Comment on above: Performed By: #### U DINA, LIPID, TSH, BNP, CMP, T7 #### [facility] [address] [address] [address] Suzie Brooks Glucose Ql (U) Negative Normal NEGATIVE [facility] Comment on above: Performed By: #### U DINA, LIPID, TSH, BNP, CMP, T7 #### [facility] [address] [address] [address] Suzie Brooks Hemoglobin Ql (U) MODERATE Abnormal NEGATIVE [facility] Comment on above: Performed By: #### U DINA, LIPID, TSH, BNP, CMP, T7 #### [facility] [address] [address] [address] Suzie Brooks Ketones Ql (U) Negative Normal NEGATIVE [facility] Comment on above: Performed By: #### U DINA, LIPID, TSH, BNP, CMP, T7 #### [facility] [address] [place] [address] Dr. Suzie Brooks LEUKOCYTES Negative Normal NEGATIVE [facility] Comment on above: Performed By: #### U DINA, LIPID, TSH, BNP, CMP, T7 #### [facility] [address] [address] [address] Suzie Brooks Nitrite Ql (U) Negative Normal NEGATIVE [facility] Comment on above: Performed By: #### U DINA, LIPID, TSH, BNP, CMP, T7 #### [facility] [address] [address] [address] Suzie Brooks pH (U) 5.5 [pH] Normal 5-9 [facility] Comment on above: Performed By: #### U DINA, LIPID, TSH, BNP, CMP, T7 #### [facility] [address] [address] [address] Suzie Brooks SPEC GRAVITY >=1.030 Abnormal 1.005-<=1.[address] [facility] Comment on above: Performed By: #### U DINA, LIPID, TSH, BNP, CMP, T7 #### [facility] [address] [place] [address] Dr. Suzie Brooks UA PROTEIN Negative Normal NEGATIVE/ TRACE [facility] Comment on above: Performed By: #### U DINA, LIPID, TSH, BNP, CMP, T7 #### [facility] [address] [place] [address] Dr. Suzie Brooks UR MICRO IND INDICATED Normal [facility] Comment on above: Performed By: #### U DINA, LIPID, TSH, BNP, CMP, T7 #### [facility] [address] [place] [address] Dr. Suzie Brooks Urobilinogen Qn (U) 0.2 {Behzad'U}/dL Normal 0.2 - 1. 0 [facility] Comment on above: Performed By: #### U DINA, LIPID, TSH, BNP, CMP, T7 #### [facility] [address] [place] [address] Dr. Suzie Brooks PROF CHEM 8 (BAS METB)on Anion gap [Moles/Vol] 12.2 mmol/L Normal [facility] Comment on above: Performed By: #### U DINA, LIPID, TSH, BNP, CMP, T7 #### [facility] [address] [place] [address] Dr. Suzie Brooks Calcium [Mass/Vol] 8.5 mg/dL Normal 8.5-10.1 [facility] Comment on above: Performed By: #### U DINA, LIPID, TSH, BNP, CMP, T7 #### [facility] [address] [place] [address] Dr. Suzie Brooks Chloride [Moles/Vol] 104 mmol/L Normal 98-107 [facility] Comment on above: Performed By: #### U DINA, LIPID, TSH, BNP, CMP, T7 #### [facility] [address] [address] [address] Suzie Brooks CO2 [Moles/Vol] 24.1 mmol/L Normal 21.0-32.0 [facility] Comment on above: Performed By: #### U DINA, LIPID, TSH, BNP, CMP, T7 #### [facility] [address] [place] [address] Dr. Suzie Brooks Creatinine [Mass/Vol] 1.14 mg/dL Normal 0.70-1.30 [facility] Comment on above: Performed By: #### U DINA, LIPID, TSH, BNP, CMP, T7 #### [facility] [address] [address] [address] Suzie Brooks EGFR-AF ZIMBABWEAN >60 Normal >=60 [facility] Comment on above: Performed By: #### U DINA, LIPID, TSH, BNP, CMP, T7 #### [facility] [address] [address] [address] Suzie Brooks EGFR-NON AF ZIMBABWEAN >60 Normal >=60 [facility] Comment on above: Performed By: #### U DINA, LIPID, TSH, BNP, CMP, T7 #### [facility] [address] [address] [address] Suzie Brooks Glucose [Mass/Vol] 114 mg/dL Critically high 74-106 [facility] Comment on above: Performed By: #### U DINA, LIPID, TSH, BNP, CMP, T7 #### [facility] [address] [address] [address] Suzie Brooks Potassium [Moles/Vol] 4.3 mmol/L Normal 3.5-5.1 [facility] Comment on above: Performed By: #### U DINA, LIPID, TSH, BNP, CMP, T7 #### [facility] [address] [address] [address] Suzie Brooks Sodium [Moles/Vol] 136 mmol/L Normal 136-145 [facility] Comment on above: Performed By: #### U DINA, LIPID, TSH, BNP, CMP, T7 #### [facility] [address] [address] [address] Suzie Brooks Urea nitrogen [Mass/Vol] 14.0 mg/dL Normal 7.0-18.0 [facility] Comment on above: Performed By: #### U DINA, LIPID, TSH, BNP, CMP, T7 #### [facility] [address] [address] [address] Suzie Brooks Urea nitrogen/Creatinine [Mass ratio] 12.3 mg/mg Normal [facility] Comment on above: Performed By: #### U DINA, LIPID, TSH, BNP, CMP, T7 #### [facility] [address] [address] [address] Suzie Brooks URINE MICROSCOPIC ONLYon BACTERIA NONE SEEN Normal NONE SEEN [facility] Comment on above: Performed By: #### U DINA, LIPID, TSH, BNP, CMP, T7 #### [facility] [address] [address] [address] Suzie Brooks Bacteria identified Cx Nom (U) NOT INDICATED Normal [facility] Comment on above: Performed By: #### U DINA, LIPID, TSH, BNP, CMP, T7 #### [facility] [address] [place] [address] Dr. uSzie Brooks CAST NONE SEEN Normal NONE SEEN [facility] Comment on above: Performed By: #### U DINA, LIPID, TSH, BNP, CMP, T7 #### [facility] [address] [place] [address] Dr. Suzie Brooks Crystals LM Nom (Urine sed) NONE SEEN Normal NONE SEEN [facility] Comment on above: Performed By: #### U DINA, LIPID, TSH, BNP, CMP, T7 #### [facility] [address] [place] [address] Dr. Suzie Brooks Epithelial cells LM Ql (Urine sed) RARE Normal NONE SEEN /RARE [facility] Comment on above: Performed By: #### U DINA, LIPID, TSH, BNP, CMP, T7 #### [facility] [address] [place] [address] Dr. Suzie Brooks MUCOUS NONE SEEN Normal NONE SEEN [facility] Comment on above: Performed By: #### U DINA, LIPID, TSH, BNP, CMP, T7 #### [facility] [address] [place] [address] Dr. Suzie Brooks RBC 5-10 Abnormal 0-2 [facility] Comment on above: Performed By: #### U DINA, LIPID, TSH, BNP, CMP, T7 #### [facility] [address] [place] [address] Dr. Suzie Brooks WBC NONE SEEN Normal NONE SEEN [facility] Comment on above: Performed By: #### U DINA, LIPID, TSH, BNP, CMP, T7 #### [facility] [address] [address] [address] Suzie Brooks CITRATE URINE 24HRon 022 Citric Acid, U, 24hr 1312 mg/24 hr Critically high 320-[address] [facility] Comment on above: Result Comment: This test was developed and its performance characteristics determined by [facility]. It has not been cleared or approved by the Food and Drug Administration. Performed By: #### U DINA, LIPID, TSH, BNP, CMP, T7 #### [facility] [address] [address] [address] Suzie Brooks Citric Acid, Urine 610 mg/L Normal Undefined [facility] Comment on above: Performed By: #### U DINA, LIPID, TSH, BNP, CMP, T7 #### [facility] [address] [place] [address] Dr. Suzie Brooks OXALATE 24HR URINEon 022 Oxalates, Urine 11 mg/L Normal Undefined [facility] Comment on above: Performed By: #### O [id number] #### [facility] [address] [place] [address] Dr. Suzie Brooks Oxalates, Urine 24hr 24 mg/24 hr Normal 7-44 [facility] Comment on above: Performed By: #### O [id number] #### [facility] [address] [place] [address] Dr. Suzie Brooks MAGNESIUM 24HR URINEon 02-02 Magnesium 24hr Urine 77.4 mg/24 hr Normal 12.0-293.0 [facility] Comment on above: Performed By: #### M AG24 #### [facility] [address] [place] [address] Dr. Suzie Brooks Magnesium UR 3.6 mg/dL Normal Not Estab. [facility] Comment on above: Performed By: #### M AG24 #### [facility] [address] [place] [address] Dr. Suzie Brooks PHOSPHORUS 24HR URINEon 01-10 Phosphorus, Urine 44.1 mg/dL Normal Not Estab. [facility] [facility] Comment on above: Performed By: #### U DINA, LIPID, TSH, BNP, CMP, T7 #### [facility] [address] [address] [address] Suzie Brooks Phosphorus, Urine 24hr 948 mg/24 hr Normal 390-1425 [facility] Comment on above: Performed By: #### U DINA, LIPID, TSH, BNP, CMP, T7 #### [facility] [address] [address] [address] Suzie Brooks URIC ACID 24 HR URINEon 01-10 Uric Acid, Urine 35.4 mg/dL Normal Not Estab. [facility] Comment on above: Performed By: #### U DINA, LIPID, TSH, BNP, CMP, T7 #### [facility] [address] [address] [address] Suzie Brooks Uric Acid, Urine 24hr 761.1 mg/24 hr Normal 182.4-936.8 [facility] Comment on above: Performed By: #### U DINA, LIPID, TSH, BNP, CMP, T7 #### [facility] [address] [address] [address] Suzie Brooks CALCIUM 24 HR URINEon 2021 CALC, 24 HR UR 187.0 mg/24 hr Normal 100.0-300.0 [facility] Comment on above: Performed By: #### U DINA, LIPID, TSH, BNP, CMP, T7 #### [facility] [address] [address] [address] Suzie Brooks UR CALCIUM 8.7 mg/dL Normal 5.1-21.0 [facility] Comment on above: Performed By: #### U DINA, LIPID, TSH, BNP, CMP, T7 #### [facility] [address] [address] [address] Suzie Brooks UR TOT VOL 2150 ml/24 HR Normal [facility] Comment on above: Performed By: #### U DINA, LIPID, TSH, BNP, CMP, T7 #### [facility] [address] [address] [address] Suzie Brooks CREA 24 HR URINEon 2 CREA, 24 HR UR 1983.59 mg/24 hr Normal 1,000.00- 2,[address] [facility] Comment on above: Performed By: #### U DINA, LIPID, TSH, BNP, CMP, T7 #### [facility] [address] [place] [address] Dr. Suzie Brooks URINE CREAT 92.26 mg/dL Normal 20.00-300.00 [facility] Comment on above: Performed By: #### U DINA, LIPID, TSH, BNP, CMP, T7 #### [facility] [address] [place] [address] Dr. Suzie Brooks SODIUM 24 HR URINEon 022 NA, 24 HR UR 172 mmol/24 hr Normal 40-220 [facility] Comment on above: Performed By: #### U DINA, LIPID, TSH, BNP, CMP, T7 #### [facility] [address] [place] [address] Dr. Suzie Brooks Sodium (U) [Moles/Vol] 80 mmol/L Normal 30-90 [facility] Comment on above: Performed By: #### U DINA, LIPID, TSH, BNP, CMP, T7 #### [facility] [address] [place] [address] Dr. Suzie Brooks PTH INTACTon 01-31-2022 PTH, Intact 24 pg/mL Normal 15-65 [facility] Comment on above: Performed By: #### U DINA, LIPID, TSH, BNP, CMP, T7 #### [facility] [address] [place] [address] Dr. Suzie Brooks BUNon 01-30-2022 Urea nitrogen [Mass/Vol] 12.0 mg/dL Normal 7.0-18.0 [facility] Comment on above: Performed By: #### U DINA, LIPID, TSH, BNP, CMP, T7 #### [facility] [address] [place] [address] Dr. Suzie Brooks CALCIUMon 01-30-2022 Calcium [Mass/Vol] 8.6 mg/dL Normal 8.5-10.1 [facility] Comment on above: Performed By: #### U DINA, LIPID, TSH, BNP, CMP, T7 #### [facility] [address] [address] [address] Suzie Brooks CHLORIDEon 01-30-2022 Chloride [Moles/Vol] 104 mmol/L Normal 98-107 [facility] Comment on above: Performed By: #### U DINA, LIPID, TSH, BNP, CMP, T7 #### [facility] [address] [address] [address] Suzie Brooks CO2on 01-30-2022 CO2 [Moles/Vol] 29.3 mmol/L Normal 21.0-32.0 [facility] Comment on above: Performed By: #### U DINA, LIPID, TSH, BNP, CMP, T7 #### [facility] [address] [place] [address] Dr. Suzie Brooks CREATININEon 01-30-2022 Creatinine [Mass/Vol] 0.92 mg/dL Normal 0.70-1.30 [facility] Comment on above: Performed By: #### U DINA, LIPID, TSH, BNP, CMP, T7 #### [facility] [address] [address] [address] Suzie Brooks EGFR-AF ZIMBABWEAN >60 Normal >=60 [facility] Comment on above: Performed By: #### U DINA, LIPID, TSH, BNP, CMP, T7 #### [facility] [address] [address] [address] Suzie Brooks EGFR-NON AF ZIMBABWEAN >60 Normal >=60 [facility] Comment on above: Performed By: #### U DINA, LIPID, TSH, BNP, CMP, T7 #### [facility] [address] [address] [address] Suzie Brooks NAon 01-30-2022 Sodium [Moles/Vol] 140 mmol/L Normal 136-[address] [facility] Comment on above: Performed By: #### U DINA, LIPID, TSH, BNP, CMP, T7 #### [facility] [address] [place] [address] Dr. Suzie Brooks POTASSIUMon 01-30-2022 Potassium [Moles/Vol] 4.0 mmol/L Normal 3.5-5.1 [facility] Comment on above: Performed By: #### U DINA, LIPID, TSH, BNP, CMP, T7 #### [facility] [address] [place], [place] [address] Dr. Suzie Brooks URIC ACID SERUMon 01-30-2022 Urate [Mass/Vol] 5.2 mg/dL Normal 3.5-7.2 [facility] Comment on above: Performed By: #### U DINA, LIPID, TSH, BNP, CMP, T7 #### [facility] [address] [place], [place] [address] Dr. Suzie Brooks US KIDNEYSon 12-18-2021 US [...] BEHZAD CARRASQUILLO Date: 2021-12-18 09:51 Normal [facility] XR KUB 1 VIEWon 11-21-2021 XR [...] by: BEHZAD CARRASQUILLO Date: 2021-11-21 09:[address] [facility] XR KUBon 11-15-2021 XR KUB [facility] [place] [address] [place] [address] XRay Report Signed Patient: Rizwan Aparicio MR#: [id number] 4 : 1950 Acct:[id number] Age/Sex: 71 / M ADM Date: 11/15/21 Loc: [place] Room: Type: [facility] Attending Dr: Micki Zeng MD Ordering Provider: [...] Hancock Jr., M.D.11/15/2021 10:43 AM Dictation Location: [place] [address] Transcribed By: [facility] 11/15/21 1043 Dictated By: Yared Hancock Jr, MD 11/15/21 1039 Signed By: 11/15/21 1043 Normal [facility] SARS-CoV-2 (COVID-19) RNA SUKHJINDER+probe Ql (Unsp spec) Negative Normal Negative [facility] Comment on above: Order Comment: Healt hcare Worker?: N Result Comment: Testing for SARS-CoV-2 by RT-PCR This test was developed and its performance characteristics determined by [employer] ([place]) and validated at the [place] [...] is terminated or revoked sooner. PERFORMED BY: [place] [address] PATHOLOGIST [employer]LE[employer] ENGINEERING PROFESSOR JIA MINAYA M.D. Performed By: #### C OVID 19 [facility] #### [address] COVID-19 Positive/NegativeOr dered By: Micki Zeng on 11-13-2021 SARS-CoV-2 (COVID-19) N gene SUKHJINDER+probe Ql (Resp) Negative Negative [facility] Comment on above: Testing for SARS-CoV -2 by RT-PCRThis test was developed and its performance characteristics determined by [employer] ([employer]) and validated at the [facility] [...] sooner. CALCULI, URINARYon 2 2,[address] [facility] Comment on above: Performed By: #### U DINA, LIPID, TSH, BNP, CMP, T7 #### [facility] [address] [address] [address] Suzie Brooks Ammonium Acid Urate Normal [facility] Comment on above: Performed By: #### U DINA, LIPID, TSH, BNP, CMP, T7 #### [facility] [address] [address] [address] Suzie Brooks Bilirubin Ql (U) [facility] Comment on above: Performed By: #### U DINA, LIPID, TSH, BNP, CMP, T7 #### [facility] [address] [address] [address] Suzie Brooks Ca Oxalate Dihydrate Normal [facility] Comment on above: Performed By: #### U DINA, LIPID, TSH, BNP, CMP, T7 #### [facility] [address] [address] [address] Suzie Brooks CaHPO4 (Brushite) [facility] Comment on above: Performed By: #### U DINA, LIPID, TSH, BNP, CMP, T7 #### [facility] [address] [address] [address] Suzie Brooks Calcium Bilirubinate Normal [facility] Comment on above: Performed By: #### U DINA, LIPID, TSH, BNP, CMP, T7 #### [facility] [address] [address] [address] Suzie Brooks Calcium Carbonate Normal [facility] Comment on above: Performed By: #### U DINA, LIPID, TSH, BNP, CMP, T7 #### [facility] [address] [address] [address] Suzie Brooks Calcium Oxalate Monohydrate 70 % Normal [facility] Comment on above: Performed By: #### U DINA, LIPID, TSH, BNP, CMP, T7 #### [facility] [address] [address] [address] Suzie Brooks Calcium Palmitate Normal [facility] Comment on above: Performed By: #### U DINA, LIPID, TSH, BNP, CMP, T7 #### [facility] [address] [address] [address] Suzie Brooks Calcium Phosphate Normal [facility] Comment on above: Performed By: #### U DINA, LIPID, TSH, BNP, CMP, T7 #### [facility] [address] [address] [address] Suzie Brooks Calcium Stearate Normal [facility] Comment on above: Performed By: #### U DINA, LIPID, TSH, BNP, CMP, T7 #### [facility] [address] [address] [address] Suzie Brooks Carbonate Apatite Normal [facility] Comment on above: Performed By: #### U DINA, LIPID, TSH, BNP, CMP, T7 #### [facility] [address] [address] [address] Suzie Brooks Cellular Material Normal [facility] Comment on above: Performed By: #### U DINA, LIPID, TSH, BNP, CMP, T7 #### [facility] [address] [address] [address] Suzie Brooks Cholesterol [facility] Comment on above: Performed By: #### U DINA, LIPID, TSH, BNP, CMP, T7 #### [facility] [address] [address] [address] Suzie Brooks Color (U) Brown Normal [facility] Comment on above: Performed By: #### U DINA, LIPID, TSH, BNP, CMP, T7 #### [facility] [address] [address] [address] Suzie Brooks Comment [facility] Comment on above: Performed By: #### U DINA, LIPID, TSH, BNP, CMP, T7 #### [facility] [address] [address] [address] Suzie Brooks Comment: Comment Normal [facility] Comment on above: Result Comment: Fantasma baez questions regarding Calculi Analysis contact [facility] at: [phone]. Performed By: #### U DINA, LIPID, TSH, BNP, CMP, T7 #### [facility] [address] [address] [address] Suzie Brooks Composition Comment [facility] Comment on above: Result Comment: Perc entage (Represents the % composition) Performed By: #### U DINA, LIPID, TSH, BNP, CMP, T7 #### [facility] [address] [address] [address] Suzie Brooks Cystine [facility] Comment on above: Performed By: #### U DINA, LIPID, TSH, BNP, CMP, T7 #### [facility] [address] [place] [address] Dr. Suzie Brooks Disclaimer: Comment Normal [facility] Comment on above: Result Comment: This test was developed and its performance characteristics determined by [facility]. It has not been cleared or approved by the Food and Drug Administration. Performed By: #### U DINA, LIPID, TSH, BNP, CMP, T7 #### [facility] [address] [place] [address] Dr. Suzie Brooks Dried Blood Normal [facility] Comment on above: Performed By: #### U DINA, LIPID, TSH, BNP, CMP, T7 #### [facility] [address] [place] [address] Dr. Suzie Brooks Drug or Metabolite Normal [facility] Comment on above: Performed By: #### U DINA, LIPID, TSH, BNP, CMP, T7 #### [facility] [address] [address] [address] Suzie Brooks Hydroxyapatite Normal [facility] Comment on above: Performed By: #### U DINA, LIPID, TSH, BNP, CMP, T7 #### [facility] [address] [place] [address] Dr. Suzie Brooks Mg NH4 PO4 (Struvite) [facility] Comment on above: Performed By: #### U DINA, LIPID, TSH, BNP, CMP, T7 #### [facility] [address] [place] [address] Dr. Suzie Brooks MgHPO4 (Newberyite) Normal [facility] Comment on above: Performed By: #### U DINA, LIPID, TSH, BNP, CMP, T7 #### [facility] [address] [address] [address] Suzie Brooks Other component(s) Normal [facility] Comment on above: Performed By: #### U DINA, LIPID, TSH, BNP, CMP, T7 #### [facility] [address] [address] [address] Suzie Brooks PDF . Normal [facility] Comment on above: Performed By: #### U DINA, LIPID, TSH, BNP, CMP, T7 #### [facility] [address] [address] [address] Suzie Brooks Photo Comment [facility] Comment on above: Result Comment: Phot ograph will follow under a separate cover Performed By: #### U DINA, LIPID, TSH, BNP, CMP, T7 #### [facility] [address] [address] [address] Suzie Brooks Please note: Comment Normal [facility] Comment on above: Result Comment: Calc shamika report will follow via computer, mail or spring upholsterer delivery. Performed By: #### U DINA, LIPID, TSH, BNP, CMP, T7 #### [facility] [address] [address] [address] Suzie Brooks Size 3x2 [facility] Comment on above: Result Comment: Mult iple pieces received. Dimensions of the largest piece reported. Performed By: #### U DINA, LIPID, TSH, BNP, CMP, T7 #### [facility] [address] [address] [address] Suzie Brooks Sodium Acid Urate Normal [facility] Comment on above: Performed By: #### U DINA, LIPID, TSH, BNP, CMP, T7 #### [facility] [address] [address] [address] Suzie Brooks Source Comment [facility] Comment on above: Result Comment: Jessica eRese Performed By: #### U DINA, LIPID, TSH, BNP, CMP, T7 #### [facility] [address] [address] [address] Suzie Brooks Triamterene Normal [facility] Comment on above: Performed By: #### U DINA, LIPID, TSH, BNP, CMP, T7 #### [facility] [address] [address] [address] Suzie Brooks Uric Acid 30 % Normal [facility] Comment on above: Performed By: #### U DINA, LIPID, TSH, BNP, CMP, T7 #### [facility] [address] [address] [address] Suzie Brooks Uric Acid Dihydrate Normal [facility] Comment on above: Performed By: #### U DINA, LIPID, TSH, BNP, CMP, T7 #### [facility] [address] [address] [address] Suzie Brooks Weight [address] [facility] Comment on above: Performed By: #### U DINA, LIPID, TSH, BNP, CMP, T7 #### [facility] [address] [address] [address] Suzie Brooks Xanthine Normal [facility] Comment on above: Performed By: #### U DINA, LIPID, TSH, BNP, CMP, T7 #### [facility] [address] [address] [address] Suzie Brooks XR KUB 1 VIEWon [...] by: RAFAEL GRAVES Date: 2021-11-12 13:[address] [facility] XR CHEST 2 Von 11-08-2021 XR [...] CARLOS GROSS Date: 2021-11-08 15:50 Normal [facility] CBC AUTO DIFFon 11-07-2021 BASO # 0.0 103/ul Normal 0.0-0.1 [facility] Comment on above: Performed By: #### U DINA, LIPID, TSH, BNP, CMP, T7 #### [facility] [address] [place] [address] Dr. Suzie Brooks Basophils/100 WBC (Bld) 0.2 % Normal 0.2-2.0 [facility] Comment on above: Performed By: #### U DINA, LIPID, TSH, BNP, CMP, T7 #### [facility] [address] [address] [address] Suzie Brooks EO # 0.0 103/ul Normal 0.0-0.7 [facility] Comment on above: Performed By: #### U DINA, LIPID, TSH, BNP, CMP, T7 #### [facility] [address] [place] [address] Dr. Suzie Brooks Eosinophils/100 WBC (Bld) 0.0 % Critically low 0.9-7.0 [facility] Comment on above: Performed By: #### U DINA, LIPID, TSH, BNP, CMP, T7 #### [facility] [address] [address] [address] Suzie Brooks Erythrocyte distribution width (RBC) [Ratio] 14.0 % Normal 11.0-15.0 [facility] Comment on above: Performed By: #### U DINA, LIPID, TSH, BNP, CMP, T7 #### [facility] [address] [place] [address] Dr. Suzie Brooks Hematocrit (Bld) [Volume fraction] 41.8 % Critically low 42.0-54.0 [facility] Comment on above: Performed By: #### U DINA, LIPID, TSH, BNP, CMP, T7 #### [facility] [address] [address] [address] Suzie Brooks Hemoglobin (Bld) [Mass/Vol] 13.7 g/dL Critically low 14.0-18.0 [facility] Comment on above: Performed By: #### U DINA, LIPID, TSH, BNP, CMP, T7 #### [facility] [address] [address] [address] Suzie Brooks IG # 0.14 10e3/ul Critically high 0.00-0.03 [facility] Comment on above: Performed By: #### U DINA, LIPID, TSH, BNP, CMP, T7 #### [facility] [address] [address] [address] Suzie Brooks IG % 0.9 % Critically high 0.0-0.5 [facility] Comment on above: Performed By: #### U DINA, LIPID, TSH, BNP, CMP, T7 #### [facility] [address] [address] [address] Suzie Brooks LYMPH # 1.6 103/ul Normal 1.2-3.8 [facility] Comment on above: Performed By: #### U DINA, LIPID, TSH, BNP, CMP, T7 #### [facility] [address] [address] [address] Suzie Brooks Lymphocytes/100 WBC (Bld) 10.2 % Critically low 20.5-60.0 [facility] Comment on above: Performed By: #### U DINA, LIPID, TSH, BNP, CMP, T7 #### [facility] [address] [address] [address] Suzie Brooks MANUAL DIFF REQ NO Normal [facility] Comment on above: Performed By: #### U DINA, LIPID, TSH, BNP, CMP, T7 #### [facility] [address] [address] [address] Suzie Brooks MCH (RBC) [Entitic mass] 28.8 pg Normal 25.9-34.0 [facility] Comment on above: Performed By: #### U DINA, LIPID, TSH, BNP, CMP, T7 #### [facility] [address] [place] [address] Dr. Suzie Brooks MCHC (RBC) [Mass/Vol] 32.8 g/dL Normal 29.9-35.2 [facility] Comment on above: Performed By: #### U DINA, LIPID, TSH, BNP, CMP, T7 #### [facility] [address] [address] [address] Suzie Brooks MCV (RBC) [Entitic vol] 87.8 fL Normal 80.0-94.0 [facility] Comment on above: Performed By: #### U DINA, LIPID, TSH, BNP, CMP, T7 #### [facility] [address] [place] [address] Dr. Suzie Brooks MONO # 1.0 103/ul Critically high 0.3-0.8 [facility] Comment on above: Performed By: #### U DINA, LIPID, TSH, BNP, CMP, T7 #### [facility] [address] [place] [address] Dr. Suzie Brooks Monocytes/100 WBC (Bld) 6.6 % Normal 1.7-12.0 [facility] Comment on above: Performed By: #### U DINA, LIPID, TSH, BNP, CMP, T7 #### [facility] [address] [place] [address] Dr. Suzie Brooks NEUT # 13.0 103/ul Critically high 1.4-6.5 [facility] Comment on above: Performed By: #### U DINA, LIPID, TSH, BNP, CMP, T7 #### [facility] [address] [place] [address] Dr. Suzie Brooks Neutrophils/100 WBC (Bld) 82.1 % Critically high 43.0-75.0 [facility] Comment on above: Performed By: #### U DINA, LIPID, TSH, BNP, CMP, T7 #### [facility] [address] [place] [address] Dr. Suzie Brooks Platelet mean volume (Bld) [Entitic vol] 9.3 fL Critically low 9.5-13.5 [facility] Comment on above: Performed By: #### U DINA, LIPID, TSH, BNP, CMP, T7 #### [facility] [address] [place] [address] Dr. Suzie Brooks PLT 301 103/ul Normal 150-450 [facility] Comment on above: Performed By: #### U DINA, LIPID, TSH, BNP, CMP, T7 #### [facility] [address] [place] [address] Dr. Suzie Brooks RBC 4.76 106/ul Normal 4.70-6.10 [facility] Comment on above: Performed By: #### U DINA, LIPID, TSH, BNP, CMP, T7 #### [facility] [address] [place] [address] Dr. Suzie Brooks WBC 15.9 103/ul Critically high 4.0-11.0 [facility] Comment on above: Performed By: #### U DINA, LIPID, TSH, BNP, CMP, T7 #### [facility] [address] [place] [address] Dr. Suzie Brooks POINT OF CARE GLUCOSEon 10-11 Glucose [Mass/Vol] 128 mg/dL Critically high 74-106 [facility] Comment on above: Performed By: #### U DINA, LIPID, TSH, BNP, CMP, T7 #### [facility] [address] [place] [address] Dr. Suzie Brooks PROF 14(COMP METB)on 022 Albumin [Mass/Vol] 3.1 g/dL Critically low 3.4-5.0 [facility] Comment on above: Performed By: #### M AG24 #### [facility] [address] [place] [address] Dr. Suzie Brooks Albumin/Globulin [Mass ratio] 0.9 {ratio} Normal [facility] Comment on above: Performed By: #### M AG24 #### [facility] [address] [place] [address] Dr. Suzie Brooks ALP [Catalytic activity/Vol] 52 U/L Normal 46-116 [facility] Comment on above: Performed By: #### M AG24 #### [facility] [address] [place] [address] Dr. Suzie Brooks ALT [Catalytic activity/Vol] 39 U/L Normal 16-63 [facility] Comment on above: Performed By: #### M AG24 #### [facility] [address] [place] [address] [address] Suzie Brooks Anion gap [Moles/Vol] 14.7 mmol/L Normal [facility] Comment on above: Performed By: #### M AG24 #### [facility] [address] [place] [address] Dr. Suzie Brooks AST [Catalytic activity/Vol] 27 U/L Normal 15-37 [facility] Comment on above: Performed By: #### M AG24 #### [facility] [address] [place] [address] Dr. Suzie Brooks Bilirubin [Mass/Vol] 0.4 mg/dL Normal 0.2-1.3 [facility] Comment on above: Performed By: #### M AG24 #### [facility] [address] [place] [address] Dr. Suzie Brooks Calcium [Mass/Vol] 7.7 mg/dL Critically low 8.5-10.1 [facility] Comment on above: Performed By: #### M AG24 #### [facility] [address] [place] [address] Dr. Suzie Brooks Chloride [Moles/Vol] 104 mmol/L Normal 98-107 [facility] Comment on above: Performed By: #### M AG24 #### [facility] [address] [address] [address] Suzie Brooks CO2 [Moles/Vol] 23.4 mmol/L Normal 22.0-30.0 [facility] Comment on above: Performed By: #### M AG24 #### [facility] [address] [place] [address] Dr. Suzie Brooks Creatinine [Mass/Vol] 1.03 mg/dL Normal 0.66-1.25 [facility] Comment on above: Performed By: #### M AG24 #### [facility] [address] [place] [address] Dr. Suzie Brooks EGFR-AF ZIMBABWEAN >60 Normal >=60 [facility] Comment on above: Performed By: #### M AG24 #### [facility] [address] [place] [address] [address] Suzie Brooks EGFR-NON AF ZIMBABWEAN >60 Normal >=60 [facility] Comment on above: Performed By: #### M AG24 #### [facility] [address] [place] [address] [address] Suzie Brooks Globulin (S) [Mass/Vol] 3.5 g/dL Normal [facility] Comment on above: Performed By: #### M AG24 #### [facility] [address] [place] [address] Dr. Suzie Brooks Glucose [Mass/Vol] 142 mg/dL Critically high 74-106 [facility] Comment on above: Performed By: #### M AG24 #### [facility] [address] [place] [address] [address] Suzie Brooks Potassium [Moles/Vol] 4.1 mmol/L Normal 3.4-5.0 [facility] Comment on above: Performed By: #### M AG24 #### [facility] [address] [place] [address] Dr. Suzie Brooks Protein [Mass/Vol] 6.6 g/dL Normal 6.1-8.[address] [facility] Comment on above: Performed By: #### M AG24 #### [facility] [address] [place] [address] Dr. Suzie Brooks Sodium [Moles/Vol] 138 mmol/L Normal 137-145 [facility] Comment on above: Performed By: #### M AG24 #### [facility] [address] [place] [address] Dr. Suzie Brooks Urea nitrogen [Mass/Vol] 15.0 mg/dL Normal 7.0-18.0 [facility] Comment on above: Performed By: #### M AG24 #### [facility] [address] [place] [address] Dr. Suzie Brooks Urea nitrogen/Creatinine [Mass ratio] 14.6 mg/mg Normal [facility] Comment on above: Performed By: #### M AG24 #### [facility] [address] [place] [address] Dr. Suzie Brooks CBC AUTO DIFFon 11-06-2021 BASO # 0.1 103/ul Normal 0.0-0.1 [facility] Comment on above: Performed By: #### U DINA, LIPID, TSH, BNP, CMP, T7 #### [facility] [address] [place] [address] Dr. Suzie Brooks Basophils/100 WBC (Bld) 0.5 % Normal 0.2-2.0 [facility] Comment on above: Performed By: #### U DINA, LIPID, TSH, BNP, CMP, T7 #### [facility] [address] [place] [address] Dr. Suzie Brooks EO # 0.3 103/ul Normal 0.0-0.7 [facility] Comment on above: Performed By: #### U DINA, LIPID, TSH, BNP, CMP, T7 #### [facility] [address] [place] [address] Dr. Suzie Brooks Eosinophils/100 WBC (Bld) 2.1 % Normal 0.9-7.0 [facility] Comment on above: Performed By: #### U DINA, LIPID, TSH, BNP, CMP, T7 #### [facility] [address] [place] [address] Dr. Suzie Brooks Erythrocyte distribution width (RBC) [Ratio] 13.8 % Normal 11.0-15.0 [facility] Comment on above: Performed By: #### U DINA, LIPID, TSH, BNP, CMP, T7 #### [facility] [address] [place] [address] Dr. Suzie Brooks Hematocrit (Bld) [Volume fraction] 46.9 % Normal 42.0-54.0 [facility] Comment on above: Performed By: #### U DNIA, LIPID, TSH, BNP, CMP, T7 #### [facility] [address] [place] [address] Dr. Suzie Brooks Hemoglobin (Bld) [Mass/Vol] 15.4 g/dL Normal 14.0-18.0 [facility] Comment on above: Performed By: #### U DINA, LIPID, TSH, BNP, CMP, T7 #### [facility] [address] [place] [address] Dr. Suzie Brooks IG # 0.05 10e3/ul Critically high 0.00-0.03 [facility] Comment on above: Performed By: #### U DINA, LIPID, TSH, BNP, CMP, T7 #### [facility] [address] [place] [address] Dr. Suzie Brooks IG % 0.4 % Normal 0.0-0.5 [facility] Comment on above: Performed By: #### U DINA, LIPID, TSH, BNP, CMP, T7 #### [facility] [address] [place] [address] Dr. Suzie Brooks LYMPH # 2.8 103/ul Normal 1.2-3.8 [facility] Comment on above: Performed By: #### U DINA, LIPID, TSH, BNP, CMP, T7 #### [facility] [address] [place] [address] Dr. Suzie Brooks Lymphocytes/100 WBC (Bld) 22.5 % Normal 20.5-60.0 [facility] Comment on above: Performed By: #### U DINA, LIPID, TSH, BNP, CMP, T7 #### [facility] [address] [place] [address] Dr. Suzie Brooks MANUAL DIFF REQ NO Normal [facility] Comment on above: Performed By: #### U DINA, LIPID, TSH, BNP, CMP, T7 #### [facility] [address] [place] [address] Dr. Suzie Brooks MCH (RBC) [Entitic mass] 28.6 pg Normal 25.9-34.0 [facility] Comment on above: Performed By: #### U DINA, LIPID, TSH, BNP, CMP, T7 #### [facility] [address] [place] [address] Dr. Suzie Brooks MCHC (RBC) [Mass/Vol] 32.8 g/dL Normal 29.9-35.2 [facility] Comment on above: Performed By: #### U DINA, LIPID, TSH, BNP, CMP, T7 #### [facility] [address] [place] [address] Dr. Suzie Brooks MCV (RBC) [Entitic vol] 87.0 fL Normal 80.0-94.0 [facility] Comment on above: Performed By: #### U DINA, LIPID, TSH, BNP, CMP, T7 #### [facility] [address] [place] [address] Dr. Suzie Brooks MONO # 0.9 103/ul Critically high 0.3-0.8 [facility] Comment on above: Performed By: #### U DINA, LIPID, TSH, BNP, CMP, T7 #### [facility] [address] [place] [address] Dr. Suzie Brooks Monocytes/100 WBC (Bld) 6.9 % Normal 1.7-12.0 [facility] Comment on above: Performed By: #### U DINA, LIPID, TSH, BNP, CMP, T7 #### [facility] [address] [place] [address] Dr. Suzie Brooks NEUT # 8.4 103/ul Critically high 1.4-6.5 [facility] Comment on above: Performed By: #### U DINA, LIPID, TSH, BNP, CMP, T7 #### [facility] [address] [place] [address] Dr. Suzie Brooks Neutrophils/100 WBC (Bld) 67.6 % Normal 43.0-75.0 [facility] Comment on above: Performed By: #### U DINA, LIPID, TSH, BNP, CMP, T7 #### [facility] [address] [place] [address] Dr. Suzie Brooks Platelet mean volume (Bld) [Entitic vol] 9.6 fL Normal 9.5-13.5 [facility] Comment on above: Performed By: #### U DINA, LIPID, TSH, BNP, CMP, T7 #### [facility] [address] [place] [address] Dr. Suzie Brooks PLT 284 103/ul Normal 150-450 [facility] Comment on above: Performed By: #### U DINA, LIPID, TSH, BNP, CMP, T7 #### [facility] [address] [place] [address] Dr. Suzie Brooks RBC 5.39 106/ul Normal 4.70-6.10 [facility] Comment on above: Performed By: #### U DINA, LIPID, TSH, BNP, CMP, T7 #### [facility] [address] [place] [address] Dr. Suzie Brooks WBC 12.5 103/ul Critically high 4.0-11.0 [facility] Comment on above: Performed By: #### U DINA, LIPID, TSH, BNP, CMP, T7 #### [facility] [address] [place] [address] Dr. Suzie Brooks CULTURE BLOODon 11-06-2021 Microscopic examination of blood, culture Culture Observations: NO GROWTH AT 5 DAYS. Normal [facility] Comment on above: Performed By: #### M AG24 #### [facility] [address] [place] [address] Dr. Suzie Brooks CULTURE URINEon 11-06-2021 CULTURE URINE Culture Observations : NO GROWTH. Normal [facility] Comment on above: Performed By: #### M AG24 #### [facility] [address] [place] [address] Dr. Suzie Brooks Covid-19 PCR (CVDTB)on 10-10 SARS-CoV-2 (COVID-19) RNA SUKHJINDER+probe Ql (Unsp spec) Not detected Normal NOT DETECTED [facility] Comment on above: Result Comment: When diagnostic testing is negative, the possibility of a false negative should be considered in the context of a patient's recent exposures and the presence of clinical signs and symptoms consistent with SARS-CoV-2. This test is not yet approved or cleared by the [place] Food and Drug Administration (FDA). This test was developed by [employer], [place], [place]. The performance characteristics of this test were validated by The [facility]. The results are not intended to be used as the sole means for clinical diagnosis or patient management decisions. The [facility] is authorized under Clinical Laboratory Improvement [...] for this test is supported by the Animal Shelter Supervisor of Health and Human Service's declaration that [...] DINA, LIPID, TSH, BNP, CMP, T7 #### [facility] [address] [place] [address] Dr. Suzie Brooks ER URINE PROFILEon 2 Bilirubin Ql (U) Negative Normal NEGATIVE The [facility] Comment on above: Performed By: #### U DINA, LIPID, TSH, BNP, CMP, T7 #### [facility] [address] [place] [address] Dr. Suzie Brooks Clarity (U) CLEAR Normal CLEAR [facility] Comment on above: Performed By: #### U DINA, LIPID, TSH, BNP, CMP, T7 #### [facility] [address] [place] [address] Dr. Suzie Brooks Color (U) YELLOW Normal YELLOW [facility] Comment on above: Performed By: #### U DINA, LIPID, TSH, BNP, CMP, T7 #### [facility] [address] [place] [address] Dr. Suzie Brooks ERUAHD A micrscopic examina tion will be performed if indicated. Normal [facility] Comment on above: Performed By: #### U DINA, LIPID, TSH, BNP, CMP, T7 #### [facility] [address] [address] [address] Suzie Brooks Glucose Ql (U) Negative Normal NEGATIVE [facility] Comment on above: Performed By: #### U DINA, LIPID, TSH, BNP, CMP, T7 #### [facility] [address] [address] [address] Suzie Brooks Hemoglobin Ql (U) LARGE Abnormal NEGATIVE [facility] Comment on above: Performed By: #### U DINA, LIPID, TSH, BNP, CMP, T7 #### [facility] [address] [place] [address] Dr. Suzie Brooks Ketones Ql (U) Negative Normal NEGATIVE [facility] Comment on above: Performed By: #### U DINA, LIPID, TSH, BNP, CMP, T7 #### [facility] [address] [place] [address] Dr. Suzie Brooks LEUKOCYTES TRACE Abnormal NEGATIVE [facility] Comment on above: Performed By: #### U DINA, LIPID, TSH, BNP, CMP, T7 #### [facility] [address] [place] [address] Dr. Suzie Brooks Nitrite Ql (U) Negative Normal NEGATIVE [facility] Comment on above: Performed By: #### U DINA, LIPID, TSH, BNP, CMP, T7 #### [facility] [address] [place] [address] Dr. Suzie Brooks pH (U) 5.0 [pH] Normal 5-9 [facility] Comment on above: Performed By: #### U DINA, LIPID, TSH, BNP, CMP, T7 #### [facility] [address] [address] [address] Suzie Brooks Protein (U) [Mass/Vol] 100 mg/dL Abnormal NEGATIVE/ TRACE [facility] Comment on above: Performed By: #### U DINA, LIPID, TSH, BNP, CMP, T7 #### [facility] [address] [place] [address] Dr. Szuie Brooks SPEC GRAVITY 1.030 Abnormal 1.005-<=1.02 5 [facility] Comment on above: Performed By: #### U DINA, LIPID, TSH, BNP, CMP, T7 #### [facility] [address] [address] [address] Suzie Brooks UR MICRO IND INDICATED Normal [facility] Comment on above: Performed By: #### U DINA, LIPID, TSH, BNP, CMP, T7 #### [facility] [address] [address] [address] Suzie Brooks Urobilinogen Qn (U) 0.2 {Behzad'U}/dL Normal 0.2 - 1. 0 [facility] Comment on above: Performed By: #### U DINA, LIPID, TSH, BNP, CMP, T7 #### [facility] [address] [address] [address] Suzie Brooks LACTATE/LACTIC ACIDon 2021 Lactate [Moles/Vol] 1.0 mmol/L Normal 0.7-2.0 [facility] Comment on above: Performed By: #### U DINA, LIPID, TSH, BNP, CMP, T7 #### [facility] [address] [place] [address] Dr. Suzie Brooks PROF 14(COMP METB)on 022 Albumin [Mass/Vol] 3.8 g/dL Normal 3.4-5.0 [facility] Comment on above: Performed By: #### U DINA, LIPID, TSH, BNP, CMP, T7 #### [facility] [address] [place] [address] Dr. Suzie Brooks Albumin/Globulin [Mass ratio] 1.0 {ratio} Normal [facility] Comment on above: Performed By: #### U DINA, LIPID, TSH, BNP, CMP, T7 #### [facility] [address] [place] [address] Dr. Suzie Brooks ALP [Catalytic activity/Vol] 66 U/L Normal 46-116 [facility] Comment on above: Performed By: #### U DINA, LIPID, TSH, BNP, CMP, T7 #### [facility] [address] [place] [address] Dr. Suzie Brooks ALT [Catalytic activity/Vol] 52 U/L Normal 16-63 [facility] Comment on above: Performed By: #### U DINA, LIPID, TSH, BNP, CMP, T7 #### [facility] [address] [address] [address] Suzie Brooks Anion gap [Moles/Vol] 14.7 mmol/L Normal [facility] Comment on above: Performed By: #### U DINA, LIPID, TSH, BNP, CMP, T7 #### [facility] [address] [address] [address] Suzie Brooks AST [Catalytic activity/Vol] 40 U/L Critically high 15-37 [facility] Comment on above: Performed By: #### U DINA, LIPID, TSH, BNP, CMP, T7 #### [facility] [address] [place] [address] Dr. Suzie Brooks Bilirubin [Mass/Vol] 0.6 mg/dL Normal 0.2-1.3 [facility] Comment on above: Performed By: #### U DINA, LIPID, TSH, BNP, CMP, T7 #### [facility] [address] [address] [address] Suzie Brooks Calcium [Mass/Vol] 8.2 mg/dL Critically low 8.5-10.1 [facility] e [facility] Comment on above: Performed By: #### U DINA, LIPID, TSH, BNP, CMP, T7 #### [facility] [address] [address] [address] Suzie Brooks Chloride [Moles/Vol] 102 mmol/L Normal 98-107 [facility] Comment on above: Performed By: #### U DINA, LIPID, TSH, BNP, CMP, T7 #### [facility] [address] [address] [address] Suzie Brooks CO2 [Moles/Vol] 27.4 mmol/L Normal 22.0-30.0 [facility] Comment on above: Performed By: #### U DINA, LIPID, TSH, BNP, CMP, T7 #### [facility] [address] [place] [address] Dr. Suzie Brooks Creatinine [Mass/Vol] 1.05 mg/dL Normal 0.66-1.25 [facility] Comment on above: Performed By: #### U DINA, LIPID, TSH, BNP, CMP, T7 #### [facility] [address] [address] [address] Suzie Brooks EGFR-AF ZIMBABWEAN >60 Normal >=60 [facility] Comment on above: Performed By: #### U DINA, LIPID, TSH, BNP, CMP, T7 #### [facility] [address] [address] [address] Suzie Brooks EGFR-NON AF ZIMBABWEAN >60 Normal >=60 [facility] Comment on above: Performed By: #### U DINA, LIPID, TSH, BNP, CMP, T7 #### [facility] [address] [address] [address] Suzie Brooks Globulin (S) [Mass/Vol] 3.7 g/dL Normal [facility] Comment on above: Performed By: #### U DINA, LIPID, TSH, BNP, CMP, T7 #### [facility] [address] [place] [address] Dr. Suzie Brooks Glucose [Mass/Vol] 124 mg/dL Critically high 74-106 [facility] Comment on above: Performed By: #### U DINA, LIPID, TSH, BNP, CMP, T7 #### [facility] [address] [address] [address] Suzie Brooks Potassium [Moles/Vol] 4.1 mmol/L Normal 3.4-5.0 [facility] Comment on above: Performed By: #### U DINA, LIPID, TSH, BNP, CMP, T7 #### [facility] [address] [address] [address] Suzie Brooks Protein [Mass/Vol] 7.5 g/dL Normal 6.1-8.[address] [facility] Comment on above: Performed By: #### U DINA, LIPID, TSH, BNP, CMP, T7 #### [facility] [address] [place] [address] Dr. Suzie Brooks Sodium [Moles/Vol] 140 mmol/L Normal 137-145 [facility] Comment on above: Performed By: #### U DINA, LIPID, TSH, BNP, CMP, T7 #### [facility] [address] [address] [address] Suzie Brooks Urea nitrogen [Mass/Vol] 16.0 mg/dL Normal 7.0-18.0 [facility] Comment on above: Performed By: #### U DINA, LIPID, TSH, BNP, CMP, T7 #### [facility] [address] [address] [address] Suzie Brooks Urea nitrogen/Creatinine [Mass ratio] 15.2 mg/mg Normal [facility] Comment on above: Performed By: #### U DINA, LIPID, TSH, BNP, CMP, T7 #### [facility] [address] [address] [address] Suzie Brooks URINE MICROSCOPIC ONLYon BACTERIA SMALL Abnormal NONE SEEN [facility] Comment on above: Performed By: #### U DINA, LIPID, TSH, BNP, CMP, T7 #### [facility] [address] [place] [address] Dr. Suzie Brooks Bacteria identified Cx Nom (U) INDICATED Normal [facility] Comment on above: Performed By: #### U DINA, LIPID, TSH, BNP, CMP, T7 #### [facility] [address] [place] [address] Dr. Suzie Brooks CAST NONE SEEN Normal NONE SEEN [facility] Comment on above: Performed By: #### U DINA, LIPID, TSH, BNP, CMP, T7 #### [facility] [address] [address] [address] Suzie Brooks Crystals LM Nom (Urine sed) NONE SEEN Normal NONE SEEN [facility] Comment on above: Performed By: #### U DINA, LIPID, TSH, BNP, CMP, T7 #### [facility] [address] [address] [address] Suzie Brooks Epithelial cells LM Ql (Urine sed) RARE Normal NONE SEEN /RARE [facility] Comment on above: Performed By: #### U DINA, LIPID, TSH, BNP, CMP, T7 #### [facility] [address] [address] [address] Suzie Brooks MUCOUS NONE SEEN Normal NONE SEEN [facility] Comment on above: Performed By: #### U DINA, LIPID, TSH, BNP, CMP, T7 #### [facility] [address] [place], [place] [address] Dr. Suzie Brooks RBC 50-75 Abnormal 0-2 [facility] Comment on above: Performed By: #### U DINA, LIPID, TSH, BNP, CMP, T7 #### [facility] [address] [place], [place] [address] Dr. Suzie Brooks WBC 20-50 Abnormal NONE SEEN [facility] Comment on above: Performed By: #### U DINA, LIPID, TSH, BNP, CMP, T7 #### [facility] [address] [place], [place] [address] Dr. Suzie Brooks XR KUB 1 VIEWon [...] BEHZAD SANTOS Date: 2021-11-06 21:58 Normal [facility] XR KUB 1 VIEW EXAMINATION: XR [...] RAFAEL GRAVES Date: 2021-11-06 08:06 Normal [facility] CBC AUTO DIFFon 11-05-2021 BASO # 0.1 103/ul Normal 0.0-0.1 [facility] Comment on above: Performed By: #### U DINA, LIPID, TSH, BNP, CMP, T7 #### [facility] [address] [address] [address] Suzie Brooks Basophils/100 WBC (Bld) 0.6 % Normal 0.2-2.0 [facility] Comment on above: Performed By: #### U DINA, LIPID, TSH, BNP, CMP, T7 #### [facility] [address] [place] [address] Dr. Suzie Brooks EO # 0.3 103/ul Normal 0.0-0.7 [facility] Comment on above: Performed By: #### U DINA, LIPID, TSH, BNP, CMP, T7 #### [facility] [address] [place] [address] Dr. Suzie Brooks Eosinophils/100 WBC (Bld) 2.2 % Normal 0.9-7.0 [facility] Comment on above: Performed By: #### U DINA, LIPID, TSH, BNP, CMP, T7 #### [facility] [address] [place] [address] Dr. Suzie Brooks Erythrocyte distribution width (RBC) [Ratio] 13.7 % Normal 11.0-15.0 [facility] Comment on above: Performed By: #### U DINA, LIPID, TSH, BNP, CMP, T7 #### [facility] [address] [place] [address] Dr. Suzie Brooks Hematocrit (Bld) [Volume fraction] 49.0 % Normal 42.0-54.0 [facility] Comment on above: Performed By: #### U DINA, LIPID, TSH, BNP, CMP, T7 #### [facility] [address] [place] [address] Dr. Suzie Brooks Hemoglobin (Bld) [Mass/Vol] 15.9 g/dL Normal 14.0-18.0 [facility] Comment on above: Performed By: #### U DINA, LIPID, TSH, BNP, CMP, T7 #### [facility] [address] [place] [address] Dr. Suzie Brooks IG # 0.07 10e3/ul Critically high 0.00-0.03 [facility] Comment on above: Performed By: #### U DINA, LIPID, TSH, BNP, CMP, T7 #### [facility] [address] [place] [address] Dr. Suzie Brooks IG % 0.5 % Normal 0.0-0.5 [facility] Comment on above: Performed By: #### U DINA, LIPID, TSH, BNP, CMP, T7 #### [facility] [address] [place] [address] Dr. Suzie Brooks LYMPH # 3.1 103/ul Normal 1.2-3.8 [facility] Comment on above: Performed By: #### U DINA, LIPID, TSH, BNP, CMP, T7 #### [facility] [address] [place] [address] Dr. Suzie Brooks Lymphocytes/100 WBC (Bld) 23.8 % Normal 20.5-60.0 [facility] Comment on above: Performed By: #### U DINA, LIPID, TSH, BNP, CMP, T7 #### [facility] [address] [place] [address] Dr. Suzie Brooks MANUAL DIFF REQ NO Normal [facility] Comment on above: Performed By: #### U DINA, LIPID, TSH, BNP, CMP, T7 #### [facility] [address] [place] [address] Dr. Suzie Brooks MCH (RBC) [Entitic mass] 28.8 pg Normal 25.9-34.0 [facility] Comment on above: Performed By: #### U DINA, LIPID, TSH, BNP, CMP, T7 #### [facility] [address] [place] [address] Dr. Suzie Brooks MCHC (RBC) [Mass/Vol] 32.4 g/dL Normal 29.9-35.2 [facility] Comment on above: Performed By: #### U DINA, LIPID, TSH, BNP, CMP, T7 #### [facility] [address] [place] [address] Dr. Suzie Brooks MCV (RBC) [Entitic vol] 88.8 fL Normal 80.0-94.0 [facility] Comment on above: Performed By: #### U DINA, LIPID, TSH, BNP, CMP, T7 #### [facility] [address] [place] [address] [address] Suzie Brooks MONO # 0.9 103/ul Critically high 0.3-0.8 [facility] Comment on above: Performed By: #### U DINA, LIPID, TSH, BNP, CMP, T7 #### [facility] [address] [place] [address] Dr. Suzie Brooks Monocytes/100 WBC (Bld) 6.8 % Normal 1.7-12.0 [facility] Comment on above: Performed By: #### U DINA, LIPID, TSH, BNP, CMP, T7 #### [facility] [address] [place] [address] Dr. Suzie Brooks NEUT # 8.7 103/ul Critically high 1.4-6.5 [facility] Comment on above: Performed By: #### U DINA, LIPID, TSH, BNP, CMP, T7 #### [facility] [address] [place] [address] Dr. Suzie Brooks Neutrophils/100 WBC (Bld) 66.1 % Normal 43.0-75.0 [facility] Comment on above: Performed By: #### U DINA, LIPID, TSH, BNP, CMP, T7 #### [facility] [address] [place] [place] [address] Dr. Suzie Brooks Platelet mean volume (Bld) [Entitic vol] 9.4 fL Critically low 9.5-13.5 [facility] Comment on above: Performed By: #### U DINA, LIPID, TSH, BNP, CMP, T7 #### [facility] [address] [place] [address] Dr. Suzie Brooks PLT 278 103/ul Normal 150-450 [facility] Comment on above: Performed By: #### U DINA, LIPID, TSH, BNP, CMP, T7 #### [facility] [address] [place] [address] Dr. Suzie Brooks RBC 5.52 106/ul Normal 4.70-6.10 [facility] Comment on above: Performed By: #### U DINA, LIPID, TSH, BNP, CMP, T7 #### [facility] [address] [place], [place] [address] Dr. Suzie Brooks WBC 13.1 103/ul Critically high 4.0-11.0 [facility] Comment on above: Performed By: #### U DINA, LIPID, TSH, BNP, CMP, T7 #### [facility] [address] [place], [place] [address] ABD/PELVIS WO CONon [...] RAFAEL GRAVES Date: 2021-11-05 11:46 Normal [facility] CULTURE URINEon 11-05-2021 CULTURE URINE Culture Observations : No growth Normal [facility] Comment on above: Performed By: #### M AG24 #### [facility] [address] [place] [address] Dr. Suzie Brooks ER URINE PROFILEon 2 Bilirubin Ql (U) Negative Normal NEGATIVE [facility] Comment on above: Performed By: #### C VDTBH #### [facility] [address] [place] [address] Dr. Suzie Brooks Clarity (U) CLEAR Normal CLEAR [facility] Comment on above: Performed By: #### C VDTBH #### [facility] [address] [place] [address] Dr. Suzie Brooks Color (U) DK. YELLOW Normal YELLOW [facility] Comment on above: Performed By: #### C VDTBH #### [facility] [address] [place] [address] Dr. Suzie Brooks ERUAHD A micrscopic examina tion will be performed if indicated. Normal [facility] Comment on above: Performed By: #### C VDTBH #### [facility] [address] [place] [address] Dr. Suzie Brooks Glucose Ql (U) Negative Normal NEGATIVE [facility] Comment on above: Performed By: #### C VDTBH #### [facility] [address] [place] [address] Dr. Suzie Brooks Hemoglobin Ql (U) LARGE Abnormal NEGATIVE [facility] Comment on above: Performed By: #### C VDTBH #### [facility] [address] [place] [address] Dr. Suzie Brooks Ketones Ql (U) Negative Normal NEGATIVE [facility] Comment on above: Performed By: #### C VDTBH #### [facility] [address] [place] [address] Dr. Suzie Brooks LEUKOCYTES Negative Normal NEGATIVE [facility] Comment on above: Performed By: #### C VDTBH #### [facility] [address] [place] [address] Dr. Suzie Brooks Nitrite Ql (U) Negative Normal NEGATIVE [facility] Comment on above: Performed By: #### C VDTBH #### [facility] [address] [place] [address] Dr. Suzie Brooks pH (U) 5.0 [pH] Normal 5-9 [facility] Comment on above: Performed By: #### C VDTBH #### [facility] [address] [place] [address] Dr. Suzie Brooks Protein (U) [Mass/Vol] 100 mg/dL Abnormal NEGATIVE/ TRACE [facility] Comment on above: Performed By: #### C VDTBH #### [facility] [address] [place] [address] Dr. Suzie Brooks SPEC GRAVITY >=1.030 Abnormal 1.005-<=1.[address] [facility] Comment on above: Performed By: #### C VDTBH #### [facility] [address] [place] [address] Dr. Suzie Brooks UR MICRO IND INDICATED Normal [facility] Comment on above: Performed By: #### C VDTBH #### [facility] [address] [place] [address] Dr. Suzie Brooks Urobilinogen Qn (U) 0.2 {Behzad'U}/dL Normal 0.2 - 1. 0 [facility] Comment on above: Performed By: #### C VDTBH #### [facility] [address] [place] [address] Dr. Suzie Brooks PROF 14(COMP METB)on 022 Albumin [Mass/Vol] 3.9 g/dL Normal 3.4-5.0 [facility] Comment on above: Performed By: #### U DNIA, LIPID, TSH, BNP, CMP, T7 #### [facility] [address] [place] [address] Dr. Suzie Brooks Albumin/Globulin [Mass ratio] 1.1 {ratio} Normal [facility] Comment on above: Performed By: #### U DINA, LIPID, TSH, BNP, CMP, T7 #### [facility] [address] [place] [address] Dr. Suzie Brooks ALP [Catalytic activity/Vol] 64 U/L Normal 46-116 [facility] Comment on above: Performed By: #### U DINA, LIPID, TSH, BNP, CMP, T7 #### [facility] [address] [place] [address] Dr. Suzie Brooks ALT [Catalytic activity/Vol] 57 U/L Normal 16-63 [facility] Comment on above: Performed By: #### U DINA, LIPID, TSH, BNP, CMP, T7 #### [facility] [address] [place] [address] Dr. Suzie Brooks Anion gap [Moles/Vol] 14.4 mmol/L Normal [facility] Comment on above: Performed By: #### U DINA, LIPID, TSH, BNP, CMP, T7 #### [facility] [address] [place] [address] Dr. Suzie Brooks AST [Catalytic activity/Vol] 51 U/L Critically high 15-37 [facility] Comment on above: Performed By: #### U DINA, LIPID, TSH, BNP, CMP, T7 #### [facility] [address] [place] [address] Dr. Suzie Brooks Bilirubin [Mass/Vol] 0.8 mg/dL Normal 0.2-1.3 [facility] Comment on above: Performed By: #### U DINA, LIPID, TSH, BNP, CMP, T7 #### [facility] [address] [place] [address] Dr. Suzie Brooks Calcium [Mass/Vol] 8.5 mg/dL Normal 8.5-10.1 [facility] Comment on above: Performed By: #### U DINA, LIPID, TSH, BNP, CMP, T7 #### [facility] [address] [place] [address] Dr. Suzie Brooks Chloride [Moles/Vol] 103 mmol/L Normal 98-107 [facility] Comment on above: Performed By: #### U DINA, LIPID, TSH, BNP, CMP, T7 #### [facility] [address] [place] [address] Dr. Suzie Brooks CO2 [Moles/Vol] 26.8 mmol/L Normal 22.0-30.0 [facility] Comment on above: Performed By: #### U DINA, LIPID, TSH, BNP, CMP, T7 #### [facility] [address] [place] [address] [address] Suzie Brooks Creatinine [Mass/Vol] 0.98 mg/dL Normal 0.66-1.25 [facility] Comment on above: Performed By: #### U DINA, LIPID, TSH, BNP, CMP, T7 #### [facility] [address] [place] [address] Dr. Suzie Brooks EGFR-AF ZIMBABWEAN >60 Normal >=60 [facility] Comment on above: Performed By: #### U DINA, LIPID, TSH, BNP, CMP, T7 #### [facility] [address] [place] [address] Dr. Suzie Brooks EGFR-NON AF ZIMBABWEAN >60 Normal >=60 [facility] Comment on above: Performed By: #### U DINA, LIPID, TSH, BNP, CMP, T7 #### [facility] [address] [place] [address] Dr. Suzie Brooks Globulin (S) [Mass/Vol] 3.7 g/dL Normal [facility] Comment on above: Performed By: #### U DINA, LIPID, TSH, BNP, CMP, T7 #### [facility] [address] [place] [address] Dr. Suzie Brooks Glucose [Mass/Vol] 118 mg/dL Critically high 74-106 [facility] Comment on above: Performed By: #### U DINA, LIPID, TSH, BNP, CMP, T7 #### [facility] [address] [place] [address] Dr. Suzie Brooks Potassium [Moles/Vol] 4.2 mmol/L Normal 3.4-5.0 [facility] Comment on above: Performed By: #### U DINA, LIPID, TSH, BNP, CMP, T7 #### [facility] [address] [place] [address] Dr. Suzie Brooks Protein [Mass/Vol] 7.6 g/dL Normal 6.1-8.[address] [facility] Comment on above: Performed By: #### U DINA, LIPID, TSH, BNP, CMP, T7 #### [facility] [address] [place] [address] Dr. Suzie Brooks Sodium [Moles/Vol] 140 mmol/L Normal 137-[address] [facility] Comment on above: Performed By: #### U DIAN, LIPID, TSH, BNP, CMP, T7 #### [facility] [address] [place] [address] Dr. Suzie Brooks Urea nitrogen [Mass/Vol] 14.0 mg/dL Normal 7.0-18.0 [facility] Comment on above: Performed By: #### U DINA, LIPID, TSH, BNP, CMP, T7 #### [facility] [address] [place] [address] Dr. Suzie Brooks Urea nitrogen/Creatinine [Mass ratio] 14.3 mg/mg Normal [facility] Comment on above: Performed By: #### U DINA, LIPID, TSH, BNP, CMP, T7 #### [facility] [address] [place] [address] Dr. Suzie Brooks URINE MICROSCOPIC ONLYon BACTERIA MODERATE Abnormal NONE SEEN [facility] Comment on above: Performed By: #### C VDTBH #### [facility] [address] [place] [address] Dr. uSzie Brooks Bacteria identified Cx Nom (U) INDICATED Normal [facility] Comment on above: Performed By: #### C VDTBH #### [facility] [address] [place] [address] Dr. Suzie Brooks CAST SEEN Abnormal NONE SEEN [facility] Comment on above: Performed By: #### C VDTBH #### [facility] [address] [place] [address] Dr. Suzie Brooks Crystals LM Nom (Urine sed) NONE SEEN Normal NONE SEEN [facility] Comment on above: Performed By: #### C VDTBH #### [facility] [address] [place] [address] Dr. Suzie Brooks Epithelial cells LM Ql (Urine sed) RARE Normal NONE SEEN /RARE [facility] Comment on above: Performed By: #### C VDTBH #### [facility] [address] [place] [address] [address] Suzie Brooks HYALINE CAST RARE Normal [facility] Comment on above: Performed By: #### C VDTBH #### [facility] [address] [place] [address] [address] Suzie Brooks MUCOUS NONE SEEN Normal NONE SEEN [facility] Comment on above: Performed By: #### C VDTBH #### [facility] [address] [place] [address] [address] Suzie Brooks RBC (U) [#/Vol] /uL Abnormal 0-2 [facility] Comment on above: Performed By: #### C VDTBH #### [facility] [address] [place] [address] Dr. Suzie Brooks WBC NONE SEEN Normal NONE SEEN [facility] Comment on above: Performed By: #### C VDTBH #### [facility] [address] [place] [address] Dr. Suzie Brooks XR KUB 1 VIEWon [...] BEHZAD CARRASQUILLO Date: 2021-11-01 12:07 Normal [facility] CBC AUTO DIFFon 10-26-2021 BASO # 0.1 103/ul Normal 0.0-0.1 [facility] Comment on above: Performed By: #### U DINA, LIPID, TSH, BNP, CMP, T7 #### [facility] [address] [place] [address] [address] Suzie Brooks Basophils/100 WBC (Bld) 0.7 % Normal 0.2-2.0 [facility] Comment on above: Performed By: #### U DINA, LIPID, TSH, BNP, CMP, T7 #### [facility] [address] [place] [address] Dr. Suzie Brooks EO # 0.2 103/ul Normal 0.0-0.7 [facility] Comment on above: Performed By: #### U DINA, LIPID, TSH, BNP, CMP, T7 #### [facility] [address] [place] [address] Dr. Suzie Brooks Eosinophils/100 WBC (Bld) 1.5 % Normal 0.9-7.0 [facility] Comment on above: Performed By: #### U DINA, LIPID, TSH, BNP, CMP, T7 #### [facility] [address] [place] [address] Dr. Suzie Brooks Erythrocyte distribution width (RBC) [Ratio] 13.9 % Normal 11.0-15.0 [facility] Comment on above: Performed By: #### U DINA, LIPID, TSH, BNP, CMP, T7 #### [facility] [address] [place] [address] Dr. Suzie Brooks Hematocrit (Bld) [Volume fraction] 47.5 % Normal 42.0-54.0 [facility] Comment on above: Performed By: #### U DINA, LIPID, TSH, BNP, CMP, T7 #### [facility] [address] [place] [address] Dr. Suzie Brooks Hemoglobin (Bld) [Mass/Vol] 15.5 g/dL Normal 14.0-18.0 [facility] Comment on above: Performed By: #### U DINA, LIPID, TSH, BNP, CMP, T7 #### [facility] [address] [place] [address] Dr. Suzie Brooks IG # 0.06 10e3/ul Critically high 0.00-0.03 [facility] Comment on above: Performed By: #### U DINA, LIPID, TSH, BNP, CMP, T7 #### [facility] [address] [place] [address] Dr. Suzie Brooks IG % 0.5 % Normal 0.0-0.5 [facility] Comment on above: Performed By: #### U DINA, LIPID, TSH, BNP, CMP, T7 #### [facility] [address] [place] [address] Dr. Suzie Brooks LYMPH # 2.6 103/ul Normal 1.2-3.8 [facility] Comment on above: Performed By: #### U DINA, LIPID, TSH, BNP, CMP, T7 #### [facility] [address] [place] [address] Dr. Suzie Brooks Lymphocytes/100 WBC (Bld) 23.1 % Normal 20.5-60.0 [facility] Comment on above: Performed By: #### U DINA, LIPID, TSH, BNP, CMP, T7 #### [facility] [address] [place] [address] Dr. Suzie Brooks MANUAL DIFF REQ NO Normal [facility] Comment on above: Performed By: #### U DINA, LIPID, TSH, BNP, CMP, T7 #### [facility] [address] [place] [address] Dr. Suzie Brooks MCH (RBC) [Entitic mass] 28.9 pg Normal 25.9-34.0 [facility] Comment on above: Performed By: #### U DINA, LIPID, TSH, BNP, CMP, T7 #### [facility] [address] [place] [address] Dr. Suzie Brooks MCHC (RBC) [Mass/Vol] 32.6 g/dL Normal 29.9-35.2 [facility] Comment on above: Performed By: #### U DINA, LIPID, TSH, BNP, CMP, T7 #### [facility] [address] [place] [address] Dr. Suzie Brooks MCV (RBC) [Entitic vol] 88.5 fL Normal 80.0-94.0 [facility] Comment on above: Performed By: #### U DINA, LIPID, TSH, BNP, CMP, T7 #### [facility] [address] [place] [address] Dr. Suzie Brooks MONO # 0.9 103/ul Critically high 0.3-0.8 [facility] Comment on above: Performed By: #### U DINA, LIPID, TSH, BNP, CMP, T7 #### [facility] [address] [place] [address] [address] Suzie Brooks Monocytes/100 WBC (Bld) 7.9 % Normal 1.7-12.0 [facility] Comment on above: Performed By: #### U DINA, LIPID, TSH, BNP, CMP, T7 #### [facility] [address] [place] [address] [address] Suzie Brooks NEUT # 7.4 103/ul Critically high 1.4-6.5 [facility] Comment on above: Performed By: #### U DINA, LIPID, TSH, BNP, CMP, T7 #### [facility] [address] [place] [address] Dr. Suzie Brooks Neutrophils/100 WBC (Bld) 66.3 % Normal 43.0-75.0 [facility] Comment on above: Performed By: #### U DINA, LIPID, TSH, BNP, CMP, T7 #### [facility] [address] [place] [address] [address] Suzie Brooks Platelet mean volume (Bld) [Entitic vol] 9.6 fL Normal 9.5-13.5 [facility] Comment on above: Performed By: #### U DINA, LIPID, TSH, BNP, CMP, T7 #### [facility] [address] [place] [address] Dr. Suzie Brooks PLT 252 103/ul Normal 150-450 [facility] Comment on above: Performed By: #### U DINA, LIPID, TSH, BNP, CMP, T7 #### [facility] [address] [place] [address] [address] Suzie Brooks RBC 5.37 106/ul Normal 4.70-6.10 [facility] Comment on above: Performed By: #### U DINA, LIPID, TSH, BNP, CMP, T7 #### [facility] [address] [place] [address] [address] Suzie Brooks WBC 11.2 103/ul Critically high 4.0-11.0 [facility] Comment on above: Performed By: #### U DINA, LIPID, TSH, BNP, CMP, T7 #### [facility] [address] [place] [address] Dr. Suzie Brooks Covid-19 PCR ([facility])on 10-09 SARS-CoV-2 (COVID-19) RNA SUKHJINDER+probe Ql (Unsp spec) Not detected Normal NOT DETECTED [facility] Comment on above: Result Comment: This test is not yet approved or cleared by the [place] FDA. When there are no FDA-approved or cleared tests available, and other criteria are met, FDA can make tests available under an emergency access mechanism called an Emergency Use Authorization (EUA). The EUA for this test is supported by the [place] of Health and Human Service's (HHS's) declaration [...] DINA, LIPID, TSH, BNP, CMP, T7 #### [facility] [address] [place] [address] [address] Suzie Brooks PROF CHEM 8 (BAS METB)on Anion gap [Moles/Vol] 7.7 mmol/L Normal [facility] Comment on above: Performed By: #### C VDTBH #### [facility] [address] [place] [address] Dr. Suzie Brooks Calcium [Mass/Vol] 8.6 mg/dL Normal 8.5-10.1 [facility] Comment on above: Performed By: #### C VDTBH #### [facility] [address] [place] [address] Dr. Suzie Brooks Chloride [Moles/Vol] 104 mmol/L Normal 98-107 [facility] Comment on above: Performed By: #### C VDTBH #### [facility] [address] [place] [address] [address] Suzie Brooks CO2 [Moles/Vol] 31.8 mmol/L Critically high 22.0-30.0 [facility] Comment on above: Performed By: #### C VDTBH #### [facility] [address] [place] [address] Dr. Suzie Brooks Creatinine [Mass/Vol] 0.99 mg/dL Normal 0.66-1.25 [facility] Comment on above: Performed By: #### C VDTBH #### [facility] [address] [place] [address] Dr. Suzie Brooks EGFR-AF ZIMBABWEAN >60 Normal >=60 [facility] Comment on above: Performed By: #### C VDTBH #### [facility] [address] [place] [address] Dr. Suzie Brooks EGFR-NON AF ZIMBABWEAN >60 Normal >=60 [facility] Comment on above: Performed By: #### C VDTBH #### [facility] [address] [place] [address] Dr. Suzie Brooks Glucose [Mass/Vol] 94 mg/dL Normal 74-106 [facility] Comment on above: Performed By: #### C VDTBH #### [facility] [address] [place] [address] Dr. Suzie Brooks Potassium [Moles/Vol] 4.5 mmol/L Normal 3.4-5.0 [facility] Comment on above: Performed By: #### C VDTBH #### [facility] [address] [place] [address] Dr. Suzie Brooks Sodium [Moles/Vol] 139 mmol/L Normal 137-[address] [facility] Comment on above: Performed By: #### C VDTBH #### [facility] [address] [place] [address] Dr. Suzie Brooks Urea nitrogen [Mass/Vol] 12.0 mg/dL Normal 7.0-18.0 [facility] Comment on above: Performed By: #### C VDTBH #### [facility] [address] [place] [address] Dr. Suzie Brooks Urea nitrogen/Creatinine [Mass ratio] 12.1 mg/mg Normal [facility] Comment on above: Performed By: #### C VDTBH #### [facility] [address] [place] [address] Dr. Suzie Brooks PROTIMEon 10-26-2021 INR Coag (PPP) [Relative time] 0.99 {INR} Normal [facility] Comment on above: Performed By: #### C VDTBH #### [facility] [address] [place] [address] Dr. Suzie Brooks INR GUIDELINES SEE BELOW Normal [facility] Comment on above: Result Comment: TOMMY RED INR: 2.0 - 3.0 CONDITIONS NOT LISTED BELOW 2.5 - 3.5 FOR PROSTHETIC HEART VALVE REPLACEMENT 2.5 - 3.5 RECURRENT THROMBOSIS Performed By: #### C VDTBH #### [facility] [address] [place] [address] Dr. Suzie Brooks PT Coag (PPP) [Time] 10.7 s Normal 9.0-11.6 [facility] Comment on above: Performed By: #### C VDTBH #### [facility] [address] [place] [address] Dr. Suzie Brooks PTTon 10-26-2021 aPTT Coag (Bld) [Time] 26.4 s Normal 22.3-36.2 [facility] Comment on above: Performed By: #### C VDTBH #### [facility] [address] [place] [address] Dr. Suzie Brooks XR KUB 1 VIEWon [...] by: RAFAEL GRAVES Date: 2021-10-17 13:[address] [facility] Vital Signs Date Time Vital Sign Value Performing Clinician Dario mcdonough 04-16-2024 11:38-0400 Blood Pressure Location Micki Osmopure [facility] 04-16-2024 11:38-0400 Diastolic blood pressure 75 mm[Hg] Micki [facility] 04-16-2024 11:38-0400 Heart rate 96 /min Micki [facility]sm[facility] 04-16-2024 11:38-0400 Respiratory rate 18 /min Micki ZENG [facility] 04-16-2024 11:38-0400 Systolic blood pressure 131 mm[Hg] Micki [facility] 04-01-2024 15:04-0400 Body height 182.9 cm fabrik Work Phone: [facility] 04-01-2024 15:04-0400 Body mass index (BMI) [Ratio] 39.33 kg/m2 Violet DO Work Phone: [facility] 04-01-2024 15:04-0400 Body weight 131.54 kg [employer] Work Phone: [facility] 04-01-2024 15:04-0400 Diastolic blood pressure 92 mm[Hg] [employer] Work Phone: [facility] 04-01-2024 15:04-0400 Systolic blood pressure 140 mm[Hg] [employer] YingYang DO Work Phone: [facility] 04-11-2023 11:55-0400 Blood Pressure Location Micki ZENG [facility] 04-11-2023 11:55-0400 Diastolic blood pressure 76 mm[Hg] Micki ZENG [facility] 04-11-2023 11:55-0400 Heart rate 80 /min Micki ZENG [facility] 04-11-2023 11:55-0400 Respiratory rate 16 /min Micki ZENG [facility] 04-11-2023 11:55-0400 Systolic blood pressure 134 mm[Hg] Micki ZENG [facility] 02-25-2022 14:20-0400 Blood Pressure Location Micki ZENG [facility] 02-25-2022 14:20-0400 Diastolic blood pressure 100 mm[Hg] Micki ZENG [facility] 02-25-2022 14:20-0400 Heart rate 86 /min Micki ZENG [facility] 02-25-2022 14:20-0400 Respiratory rate 16 /min Mikci ZENG [facility] 02-25-2022 14:20-0400 Systolic blood pressure 155 mm[Hg] Micki ZENG [facility] Encounters Encounter Date Encounter Type Care Provider Facility Start: 04-15-2025 ambulatory Micki Muhammadi ty:[facility] Start: 04-16-2024 End: 04-16-2024 ambulatory Micki ZENG Facility: [facility] Start: 04-16-2024 End: 04-16-2024 Patient encounter procedure Micki ZENG [facility] Start: 04-01-2024 End: 04-01-2024 Office outpatient visit 15 minutes Christopher Brennon DO Work Phone: [employer] [facility] Comment on above: Essential tremor (Pr imary Dx); Essential hypertension (CMS/HCC) Start: 04-01-2024 End: 04-01-2024 ambulatory TRACEY WILLETT Not Available Start: 04-01-2024 End: 04-01-2024 Bamboo flowsheet Uliceser Brennon DO Work Phone: [employer] [facility] Start: 04-01-2024 End: 04-01-2024 Bamboo flowsheet Uliceser Brennon DO Work Phone: [employer] [address] Start: 04-11-2023 End: 04-11-2023 Patient encounter procedure Micki ZENG [facility] Start: 08-14-[address] MARIELLE LERMA Facility :H1 Start: 08-13-[address] MARIELLE LERMA Facility :[facility]1 Start: 07-26-2022 End: 07-27-[address] MARIELLE LERMA Facility:[facility]1 Start: 07-18-2022 End: 07-19-[address] MICKI ZENG Facility:H1 Start: 05-15-2022 End: 05-16-[address] MARIELLE LERMA Facility:H1 Start: 02-25-2022 End: 02-25-2022 Patient encounter procedure Micki ZENG [facility] Start: 02-18-2022 End: 02-18-2022 ambulatory [...] encounter procedure MD Marielle Lerma Work Phone: [facility] Start: 11-12-2021 End: 11-13-[address] MICKI ZENG Facility:H1 Start: 11-06-2021 End: 11-07-[address] MARIELLE LERMA Facility:H1 Start: 11-05-2021 End: 11-05-[address] MARIELLE LERMA Facility:H1 Start: 11-01-2021 End: 11-01-[address] MICKI ZENG Facility:H1 Start: 10-31-2021 Encounter for preprocedural cardiovascular examination DR MICKI ZENG [facility] Start: 10-30-[address] MICKI EZNG [facility] ity:H1 Start: 10-26-2021 End: 10-27-[address] MICKI ZENG Facility:H1 Start: 10-26-2021 End: 10-27-2021 Encounter for preprocedural cardiovascular examination DR MICKI ZENG Facility:H1 Start: 10-17-2021 End: 10-18-[address] MICKI ZENG Facility:H1 Procedures Date Procedure Procedure Detail Performing Clinician Start: 05-15-[address] JHONATAN ZENG Comment on above: Performed By: #### U DINA, LIPID, TSH, BNP, CMP, T7 #### [facility] [address] [place] [address] Dr. Suzie Brooks Start: 11-21-2021 Cystoscopy Micki [...] procedure 04/18/2025 2:00 PM EDT Office Visit [facility] [address] [place] [phone] Tracey Willett DO [address] [place] [address] [facility] Start: 04-11-2024 Influenza vaccination Influenza Vacc ine (#1) [facility] Start: 04-01-2024 End: 04-01-2024 Patient encounter procedure 04/01/2024 3:00 PM EDT Office Visit [facility] [address] [place] [phone] BrennonTracey washington, DO [address] [place] [phone] Arrived [facility] Comment on above: Arrived Start: 11-09-2023 Screening for malign ant neoplasm of colon [facility] Start: 05-22-2018 Pneumococcal Vaccine : 65+ Years (2 of 2 - PPSV23 or PCV20) Pneumococcal Vaccine: 65+ Years (2 of 2 - PPSV23 or PCV20) [facility] Start: 1950 Screening for malign ant neoplasm of colon [facility] Healthcare Immunizations Immunization Date Immunization Notes Care Provider Fa cility 05-31-2022 SARS-CoV-2 (COVID-19 ) [id number] Micki ZENG [facility] Comment on above: Result Comment: 2022: [id number] 12-22-2021 SARS-CoV-2 (COVID-19 ) mRNA-1273 vaccine Micki ZENG [facility] 06-05-2021 SARS-CoV-2 (COVID-19 ) mRNA-1273 vaccine Micki ZENG [facility] 05-29-2021 influenza virus vaccine, unspecified formulation Micki ZENG [facility] 05-15-2021 influenza virus vaccine, unspecified formulation Micki ZENG [facility] 11-09-2020 SARS-CoV-2 (COVID-19 ) mRNA-1273 vaccine Micki ZENG [facility] 11-01-2020 SARS-CoV-2 (COVID-19 ) mRNA-1273 vaccine Micki ZENG [facility] 10-09-2020 SARS-CoV-2 (COVID-19 ) mRNA-1273 vaccine Micki Osmopure [facility] 10-05-2020 SARS-CoV-2 (COVID-19 ) mRNA-1273 vaccine Mciki Osmopure [facility] 05-17-2020 influenza virus vaccine, unspecified formulation Micki Osmopure [facility] 06-24-2019 tetanus toxoid, redu roberto carlos diphtheria toxoid, and acellular pertussis vaccine, adsorbed Micki ZENG [facility] 05-25-2019 influenza virus vaccine, unspecified formulation Micki ZENG [facility] 05-22-2017 influenza virus vaccine, unspecified formulation Micki ZENG [facility] 05-22-2017 pneumococcal conjuga te vaccine, 13 valent Micki ZENG [facility] 05-30-2016 influenza, unspecifi ed formulation Micki ZENG [facility] 11-01-2013 zoster vaccine, live Micki ZENG [facility] 12-18-2005 hepatitis A vaccine, adult dosage Micki Osmopure [facility] 10-18-2005 hepatitis B vaccine, pediatric or pediatric/adolescent dosage Micki ZENG [facility] 10-18-2005 tetanus and diphther ia toxoids, adsorbed, preservative free, for adult use (2 Lf of tetanus toxoid and 2 Lf of diphtheria toxoid) Mickikimberly ZENG [facility] 07-26-2005 hepatitis B vaccine, pediatric or pediatric/adolescent dosage Mickikimberly ZENG [facility] 06-20-2005 hepatitis A vaccine, adult dosage Micki ZENG [facility] 06-20-2005 hepatitis B vaccine, pediatric or pediatric/adolescent dosage Micki ZENG [facility] Payers Date Payer Category Payer Private Health Insurance [employer] MEDICARE SUPPLEMENT [id number] 2024-Present [address] [address] [place] [address] Supplement [id number] 2017 Medicare MEDICARE MEDICAR E RAILROAD [id number] 2017-Present [facility]ICA [facility] RAILROAD MEDICARE [address] [address] [place] [address] Medicare [id number] 1959 Medicare [id number] 1959 Private Health Insurance [id number] 1952 Unknown [id number] 2.16.840.1.483898.3.579 .2.593 1952 Unknown [id number] 2.16.840.1.846670.3.579 .2.593 1952 Unknown [id number] 2.16.840.1.743140.3.579 .2.593 1952 Unknown [id number] 2.16.840.1.575645.3.579 .2.593 1952 Unknown [id number] 2.16.840.1.538861.3.579 .2.593 1952 Unknown [id number] 2.16.840.1.172607.3.579 .2.593 1952 Unknown [id number] 2.16.840.1.314852.3.579 .2.593 1952 Unknown [id number] 2.16.840.1.263360.3.579 .2.593 1952 Unknown [id number] 2.16.840.1.372525.3.579 .2.593 1952 Unknown [id number] 2.16.840.1.492501.3.579 .2.593 1952 Unknown [id number] 2.16.840.1.811915.3.579 .2.593 1952 Unknown [id number] 2.16.840.1.368673.3.579 .2.593 1952 Unknown [id number] 2.16.840.1.962740.3.579 .2.593 1952 Unknown [id number] 2.16.840.1.773905.3.579 .2.593 1952 Unknown [id number] 2.16.840.1.224786.3.579 .2.593 1952 Unknown [id number] 2.16.840.1.076731.3.579 .2.593 1952 Unknown [id number] 2.16.840.1.235877.3.579 .2.593 1952 Unknown [id number] 2.16.840.1.955211.3.579 .2.593 1952 Unknown [id number] 2.16.840.1.113897.3.579 .2.1259 1952 Unknown [id number] 2.16.840.1.508767.3.579 .2.727 1952 Unknown [id number] 2.16.840.1.507927.3.579 .2.727 Self-pay Self Pay [id number] Social History Date Type Detail Facility Start: 10-19-2019 End: 04-16-2024 Tobacco smoking status WYIS Ex-smoker (finding) [facility] Start: 1950 Sex Assigned At Male [facility] Tobacco smoking status Never [facility] Start: 03-28-2024 Sex Assigned At Male [facility] Start: 03-28-2024 Tobacco smoking stat us WYIS Never smoked tobacco [facility] Start: 03-28-2024 [...] 04-16-2024 Functional Status N/A [facility] 04-11-2023 Functional Status N/A [facility] 02-25-2022 Functional Status N/A [facility] Clinical Notes 02-25-2022 to 04-16-2024 Tracey Willett - 04/01/2024 3:00 PM EDT Note Date & Type Note Facility 04-16-2024 Hospital Discharg e instructions Patient Education 04/16/2024 12:25:38 Kidney Stones, Iqed-xu-Twqu Kidney Stones Kidney stones are rock-like masses [...] Follow these instructions at home: Medicines Take sdww-tpv-wshiqre and prescription medicines only as told by [...] provider. Document Revised: 03/21/2023 Document Reviewed: 03/21/2023 [employer] Patient Education 2023 [email or web address] Follow Up Care 04/11/2023 12:50:53 With:THOR BATISTA, Micki Cedeño, URL Address: [facility] [address], [place] [address]- [phone] When: Unknown Comments:1 yr w/ [facility] Note Patient Education Urology Kidney Stones [...] these instructions at home: Medicines ? Take wlal-olp-kdovrqj and prescription medicines only as told by [...] provider. Document Revised: 03/21/2023 Document Reviewed: 03/21/2023 [employer] Patient Education ? 2023 [email or web address] [facility] 04-01-2024 History of Presen t illness Narrative [...] reflexes are 1+ and symmetric throughout. Coordination: Qyblxw-gq-oudy testing and rapid alternating movements are normal Gait: Normal Review and summary of old records: MRI of the brain at [place] 03/10/18: Mild age-related atrophy. No acute findings [...] and return instructions documented in this encounter [facility] 04-11-2023 Hospital Discharg e instructions [...] include: ?8 oz (237 mL) of milk, npkkzxb-lebonscbdvte-jetye milk, and calcium-fortifiedfruit juice. Calcium-fortified means that [...] ?Spinach (cooked), rhubarb, beets, sweet potatoes, and Latvian chard. ?Peanuts. ?Potato chips, botswanan fries, and baked potatoes with skin on. ?Nuts and nut products. ?Chocolate. If you regularly take a diuretic medicine, make sure to eat at least 1 or 2 servings of fruits or vegetables that are high in potassium each day. These include: ?Avocado. ?Banana. ?[place], prune, carrot, or tomato juice. ?Baked potato. [...] magnesium, fish oil, or vitamin B6. Take ohap-aqz-ymnpbtl and prescription medicines only as told by [...] Casseroles. Pizza. Lasagna. Frozen meals. Potato chips. Guamanian fries. The items listed above may not [...] provider. Document Revised: 04/08/2022 Document Reviewed: 04/08/2022 [employer] Patient Education 2022 [email or web address] Follow Up Care 08/19/2022 10:39:03 With:THOR BATISTA, Micki Cedeño, URL Address: [facility] [address] [place] [address]- When:Within 1 Year(s) [facility] [place] 02-25-2022 Hospital Discharg e instructions [...] 07/28/2006 Document Revised: 04/16/2019 Document Reviewed: 06/27/2017 [employer] Patient Education 2020 [email or web address]. 02/25/2022 15:28:39 Kidney Stones, Rmhx-mh-Zboe Kidney Stones Kidney stones are rock-like masses [...] Follow these instructions at home: Medicines Take xgun-tug-dzonnki and prescription medicines only as told by [...] 01/13/2009 Document Revised: 12/14/2019 Document Reviewed: 12/14/2019 [employer] Patient Education 2019 [email or web address] Follow Up Care 11/21/2021 12:48:10 With:Micki ZENG MD, URL Address: [facility] [address], [place] [address]- [phone] When:Within 4 Month(s) Comments:4 mo fu with IVP [facility] 02-25-2022 Evaluation + Plan note Diagnostic Tests PendingPSA Total 02/25/22Creatinine 02/25/[address] [facility] Evaluation + Plan note Future Appointments Appointment Date:04/16/2024 11:00:00 AM Scheduled Provider:Micki ZENG MD Location:[facility] Appointment Type:URO Office Visit [facility] Evaluation + Plan note Future Appointments Appointment Date:04/15/2025 11:00:00 AM Scheduled Provider:Micki ZENG MD Location:[facility] Appointment Type:URO Office Visit 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 Start Date End Date Marielle Lerma MD [address] [place] [address] PCP - General Family Medicine 04/01/24 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 [facility] [employer] [facility]. provides no warranty or guarantee of the accuracy or completeness of information in this document.
[2024-08-03 06:22] LABS: Alanine Aminotransferase 91 U/L (16-63); Albumin Globulin Ratio 0.9; Albumin Level 2.8 g/dL (3.4-5.0); Alkaline Phosphatase 54 U/L (46-116); Anion Gap 14.5; Aspartate Amino Transferase 35 U/L (15-37); BUN Creatinine Ratio 19.1; Bilirubin Total 0.6 mg/dL (0.2-1.0); Calcium 8.5 mg/dL (8.5-10.1); Carbon Dioxide 26.3 mmol/L (21.0-32.0); Chloride 101 mmol/L (98-107); Estimated GFR (African America >60 (>=60 mL/min/1.73m^2); Estimated GFR (Non-African Ame >60 (>=60 mL/min/1.73m^2); Globulin 3.1 g/dL; Glucose 145 mg/dL (74-106); Potassium 3.8 mmol/L (3.5-5.1); Sodium 138 mmol/L (136-145); Total Protein 5.9 g/dL (6.4-8.2)
--- NOTE | 2024-08-03 07:58 | P.PN_ITS ---
Exam Constitutional Vital Signs, click to edit/add: Last Vital Signs Temp 98.1 F 08/03/24 03:42 Pulse 94 H 08/03/24 07:51 Resp 16 08/03/24 05:23 BP 139/78 08/03/24 03:42 Pulse Ox 97 08/03/24 05:23 O2 Del Method Room Air 08/03/24 05:23 Progress Note: Objective Labs Labs: Short CBC 08/02/24 08/03/24 Range/Units 20:40 05:49 WBC 19.0 H 13.3 H (4.0-11.0) 10^3/uL Hgb 15.0 14.4 (14.0-18.0) g/dL Hct 44.2 43.2 (42.0-54.0) % Plt Count 322 291 (150-450) 10^3/uL BMP 08/02/24 08/03/24 20:40 05:49 Sodium 136 138 Potassium 3.3 L 3.8 Chloride 100 101 Carbon Dioxide 26.6 26.3 BUN 21.0 H 18.0 Creatinine 1.07 0.94 Glucose 128 H 145 H Calcium 8.5 8.5 Liver Function 08/02/24 08/03/24 Range/Units 20:40 05:49 Total Bilirubin 0.6 0.6 (0.2-1.0) mg/dL AST 43 H 35 (15-37) U/L ALT 99 H 91 H (16-63) U/L Alkaline Phosphatase 59 54 (46-116) U/L Albumin 2.9 L 2.8 L (3.4-5.0) g/dL Urine 08/02/24 Range/Units 19:27 Urine Color Yellow (YELLOW) Urine Clarity Clear (CLEAR) Urine pH 5.5 (5.0-9.0) Ur Specific [place] 1.025 (1.005-1.025) Urine Protein Negative (NEG/TRACE) mg/dL Urine Glucose (UA) Negative (NEGATIVE) mg/dL Progress Note: A&P Assessment and Plan (1) COPD exacerbation: (2) Dyspnea: (3) Centrilobular emphysema: (4) Acute asthmatic bronchitis: Plan Admission findings: Sinus tachycardia, low-grade fever, respiratory distress, uncontrolled hypertension, leukocytosis with left shift consistent with bacterial process with elevated liver function test, lactic acidosis (lactate over 3) likely complication of sepsis from pneumonia versus bronchitis. Leading to severe sepsis. This is likely a complication of his recent COVID diagnosis. Respiratory distress with severe sepsis due to bronchitis leading to acute exacerbation of COPD, (failed outpatient treatment secondary to being on antibiotics - cephalexin - for finger laceration) -continue with steroids, antibiotics, aerosol treatments, sputum was able to be produced today we will send that for culture. Severe sepsis with lactic acidosis-unable to give aggressive fluid management based on his history of acute combined congestive heart failure, maintain current low-dose fluids, seems to be tolerating that. COVID-19-he is on day 9, will maintain quarantine here. He already has been treated with Paxlovid. Hypertension-continue the medications Tremor-continue with home medications-improved today compared to yesterday. Much worse yesterday when he was sicker. Knee pain-continue with home medications but will stop the fentanyl patch BPH-continue with home medications Hypercholesterolemia continue with home medications Elevated liver function test likely related to the sepsis - Monitor daily Admission status: Patient essentially failed outpatient treatment, he developed his acute bronchitis with acute exacerbation of COPD and ending up with severe sepsis with lactic acidosis while being on oral antibiotics for finger laceration. Patient will require IV medications, greater than 2 midnights. Medically necessary treatment spanning 2 midnights. Inpatient status ?
[2024-08-03] MEDS: LACTATED RINGER'S SOLUTION 1,000 ML 100 ML IV ×2 (08:20→18:35)
[2024-08-03] MEDS: TAMSULOSIN HCL 0.4 MG CAPSULE PO ×2 (08:21→20:06)
[2024-08-03] MEDS: ASPIRIN 81 MG TAB.CHEW PO (08:21)
[2024-08-03] MEDS: SOLIFENACIN SUCCINATE 10 MG TABLET PO (08:21)
[2024-08-03] MEDS: PRIMIDONE 50 MG TABLET PO ×2 (08:21→20:06)
[2024-08-03] MEDS: LISINOPRIL 20 MG TABLET 40 MG PO (08:21)
[2024-08-03] MEDS: POTASSIUM CITRATE 10 MEQ ER TABLET PO ×2 (08:21→20:05)
[2024-08-03] MEDS: FLUTICASONE PROPIONATE 50 MCG NASAL SPRAY 2 SPRAY NS (08:21)
[2024-08-03] MEDS: FLUCONAZOLE 100 MG TABLET 200 MG PO (08:21)
[2024-08-03] MEDS: L. ACIDOPHILUS/L.BULGARICUS 1 PACKET GRAN.PACK PO ×2 (08:21→20:05)
[2024-08-03] MEDS: ALLOPURINOL 300 MG TABLET PO (08:21)
[2024-08-03 10:05] LABS: BOX Test Reference Lab FRMC; BOX Test Sent Out SPUTUM CX/GRAM STAIN
[2024-08-03] MEDS: BUDESONIDE 0.5 MG/2 ML AMPULE NEB IH (10:37)
[2024-08-03] MEDS: LEVOFLOXACIN IN DEXTROSE 5 % 750 MG/150 ML PREMIX 150 MG IV (20:03)
[2024-08-03] MEDS: MONTELUKAST SODIUM 10 MG TABLET PO (21:28)
[2024-08-03] MEDS: ATORVASTATIN CALCIUM 10 MG TABLET PO (21:28)
[2024-08-04] VITALS (9 sets, daily range): BP systolic 152–158; BP diastolic 74–92; PULSE 64–85; TEMP 36.2–36.3; O2SAT 95–97
[2024-08-04] MEDS: METHYLPREDNISOLONE SOD SUCC PF 125 MG/2 ML VIAL IVP (01:48)
[2024-08-04] MEDS: IPRATROPIUM/ALBUTEROL SULFATE 3 ML AMPUL.NEB IH (05:07)
[2024-08-04] MEDS: PIPERACILLIN SODIUM/TAZOBACTAM 3.375 GM in 0.9 % SODIUM CHLORIDE 50 ML IV (05:28)
[2024-08-04] MEDS: LACTATED RINGER'S SOLUTION 1,000 ML 100 ML IV (05:29)
[2024-08-04 06:21] LABS: Basophils Absolute Auto 0.1 10^3/uL (0.0-0.1); Basophils Percent Auto 0.2 % (0.2-2.0); Hematocrit 43.9 % (42.0-54.0); Hemoglobin 14.9 g/dL (14.0-18.0); Immature Granulocytes Abs Auto 1.24 10^3/uL (0.00-0.03); Immature Granulocytes Pct Auto 4.8 % (0.0-0.5); Lymphocytes Absolute Auto 1.5 10^3/uL (1.2-3.8); Lymphocytes Percent Auto 5.9 % (20.5-60.0); Mean Corpuscular HGB Conc 33.9 g/dL (29.9-35.2); Mean Corpuscular Hemoglobin 30.4 pg (25.9-34.0); Mean Corpuscular Volume 89.6 fL (80.0-94.0); Mean Platelet Volume 9.1 fL (9.5-13.5); Monocytes Percent Auto 3.8 % (1.7-12.0); Neutrophils Percent Auto 85.3 % (43.0-75.0); Platelet Count 308 10^3/uL (150-450); Red Cell Distribution Width 13.8 % (11.0-15.0); White Blood Count 25.8 10^3/uL (4.0-11.0)
[2024-08-04 06:38] LABS: Alanine Aminotransferase 90 U/L (16-63); Alkaline Phosphatase 53 U/L (46-116); Anion Gap 14.1; Aspartate Amino Transferase 30 U/L (15-37); BUN Creatinine Ratio 20.4; Bilirubin Total 0.4 mg/dL (0.2-1.0); Calcium 8.7 mg/dL (8.5-10.1); Carbon Dioxide 27.6 mmol/L (21.0-32.0); Chloride 102 mmol/L (98-107); Estimated GFR (African America >60 (>=60 mL/min/1.73m^2); Estimated GFR (Non-African Ame >60 (>=60 mL/min/1.73m^2); Globulin 3.1 g/dL; Glucose 145 mg/dL (74-106); Potassium 3.7 mmol/L (3.5-5.1); Sodium 140 mmol/L (136-145); Total Protein 6.1 g/dL (6.4-8.2)
--- NOTE | 2024-08-04 07:30 | P.DS_ITS ---
DS: Providers Provider Date of admission: 08/02/24 17:31 Primary care physician: Guicho Lerma MD Consults: 08/02/24 18:41 Occupational Therapy Eval and Treat Routine Reason for consultation: Only if needed for Rehab Has provider been notified: No Physical Therapy Eval and Treat Routine Reason for consultation: Eval and Treat Has provider been notified: No DS: Diagnosis Discharge Diagnosis (1) COPD exacerbation: (2) Dyspnea: (3) Centrilobular emphysema: (4) Acute asthmatic bronchitis: Plan Admission findings: Sinus tachycardia, low-grade fever, respiratory distress, uncontrolled hypertension, leukocytosis with left shift consistent with bacterial process with elevated liver function test, lactic acidosis (lactate over 3) likely complication of sepsis from pneumonia versus bronchitis. Leading to severe sepsis. This is likely a complication of his recent COVID diagnosis. Respiratory distress with severe sepsis due to bronchitis leading to acute exacerbation of COPD, (failed outpatient treatment secondary to being on antibiotics - cephalexin - for finger laceration) -continue with steroids, antibiotics, aerosol treatments, sputum was able to be produced today we will send that for culture. Severe sepsis with lactic acidosis-unable to give aggressive fluid management based on his history of acute combined congestive heart failure, maintain current low-dose fluids, seems to be tolerating that. COVID-19-he is on day 9, will maintain quarantine here. He already has been treated with Paxlovid. Hypertension-continue the medications Tremor-continue with home medications-improved today compared to yesterday. Much worse yesterday when he was sicker. Knee pain-continue with home medications but will stop the fentanyl patch BPH-continue with home medications Hypercholesterolemia continue with home medications Elevated liver function test likely related to the sepsis - Monitor daily Admission status: Patient essentially failed outpatient treatment, he developed his acute bronchitis with acute exacerbation of COPD and ending up with severe sepsis with lactic acidosis while being on oral antibiotics for finger laceration. Patient will require IV medications, greater than 2 midnights. Medically necessary treatment spanning 2 midnights. Inpatient status ? DS: Summary Hospital Course Hospital Course: Patient was seen and evaluated in the office with increasing cough and shortness of breath, was set up for outpatient testing but as he was getting his testing completed, had increasing cough and shortness of breath and he was referred to the emergency room. In the emergency room he was found to have Sinus tachycardia, low-grade fever, respiratory distress, uncontrolled hypertension, leukocytosis with left shift consistent with bacterial process with elevated liver function test, lactic acidosis (lactate over 3) likely complication of severe sepsis from pneumonia versus bronchitis. Leading to severe sepsis. This is likely a complication of his recent COVID diagnosis. Patient was placed on steroids, aerosols, IV antibiotics as well as antifungal as he has a history of fungal bronchitis. Chest x-ray shows reactive airway disease versus mild bilateral interstitial pneumonitis. Patient did not develop any hypoxia while admitted, he still has some labored breathing but is improving on the day of discharge. If he is able to ambulate without difficulty and he can be discharged to home in improving condition. Medications to this. Follow-up with me next week. Currently out of his quarantine as today is day 10 from his COVID 19 diagnosis Status at Discharge Overall status at discharge: patient is not back to baseline Time Spent with Patient Time attestation: Total time spent providing and/or coordinating discharge services: Time spent: greater than 30 minutes Exam Constitutional Vital Signs, click to edit/add: Last Vital Signs Temp 97.1 F L 08/04/24 04:00 Pulse 81 08/04/24 06:03 Resp 16 08/04/24 05:07 BP 153/75 H 08/04/24 04:00 Pulse Ox 97 08/04/24 05:07 O2 Del Method Room Air 08/04/24 05:07 Documenting provider has reviewed patient's vital signs: yes Common normals: apparent distress and negative for average body habitus Exam limitations: no altered mental status HENMT Common normals: normocephalic Chest Common normals: inspection of chest normal Respiratory Common normals: clear to auscultation bilaterally; abnormal respiratory effort (Minimal cough) Auscultation: no rhonchi (Resolved) and no wheezes Cardio Common normals: regular rate and regular rhythm GI Common normals: negative for Normal to inspection, nondistended, normoactive bowel sounds present (Obese) Neuro Common normals: oriented x3 and moves all extremities DS: Data Data Completed and Pending Labs on day of discharge: Labs from last 24 hours 08/04/24 08/03/24 05:55 08:34 WBC 25.8 H RBC 4.90 Hgb 14.9 Hct 43.9 MCV 89.6 MCH 30.4 MCHC 33.9 RDW 13.8 Plt Count 308 MPV 9.1 L Neut % (Auto) 85.3 H Lymph % (Auto) 5.9 L Greene % (Auto) 3.8 Eos % (Auto) 0.0 L Baso % (Auto) 0.2 Neut # (Auto) 22.0 H Lymph # (Auto) 1.5 Greene # (Auto) 1.0 H Eos # (Auto) 0.0 Baso # (Auto) 0.1 Abs Immat Gran (auto) 1.24 H Imm/Tot Granulo (auto) 4.8 H Sodium 140 Potassium 3.7 Chloride 102 Carbon Dioxide 27.6 Anion Gap 14.1 BUN 19.0 H Creatinine 0.93 Est GFR ( Amer) >60 Est GFR (Non-Af Amer) >60 BUN/Creatinine Ratio 20.4 Glucose 145 H Calcium 8.7 Total Bilirubin 0.4 AST 30 ALT 90 H Alkaline Phosphatase 53 Total Protein 6.1 L Albumin 3.0 L Globulin 3.1 Albumin/Globulin Ratio 1.0 Ref Lab Order Date 08/03/24 Ref Lab Test Name Sputum cx/gram stain Ref Test Addition Info [facility] Discharge Plan Discharge Disposition: Home, Self-Care Condition: Fair Discharge Medications: New benzonatate 200 mg capsule 200 mg PO TID PRN (Reason: cough) Qty: 20 0RF prednisone 10 mg tablet 50 mg PO DAILY Qty: 47 0RF Rx Instructions: 5/day for 3 days. 4/day for 3 days, 3/day for 3 days, 2/day for 3 days, 1/day for 3 days, 1/2 /day for 4 days levofloxacin 750 mg tablet 750 mg PO DAILY 10 Days Qty: 10 0RF Continued lisinopril 40 mg tablet 40 mg PO .QD montelukast 10 mg Tablet 10 mg PO QHS Qty: 30 11RF fluticasone propionate 50 mcg/actuation [place],Suspension 2 spray intranasal QD Qty: 16 11RF levofloxacin 750 mg tablet 750 mg PO DAILY 10 Days Qty: 10 0RF fluticasone furoate-vilanterol [Breo Ellipta] 200-25 mcg/dose blister with device 1 inh inhalation DAILY Qty: 1 11RF prednisone 20 mg tablet 40 mg PO DAILY 5 Days Qty: 10 0RF primidone 50 mg tablet 50 mg PO BID tamsulosin 0.4 mg capsule 0.4 mg PO BID potassium citrate 10 mEq (1,080 mg) tablet extended release 10 meq PO BID simvastatin 20 mg tablet 20 mg PO .QHS hydrochlorothiazide 12.5 mg capsule 12.5 mg PO QDAY allopurinol 300 mg tablet 300 mg PO DAILY solifenacin 10 mg tablet 10 mg PO DAILY aspirin 81 mg capsule 81 mg PO DAILY Qty: 30 11RF Print Language: Belgian Forms: Portal Instructions
[2024-08-04] MEDS: TAMSULOSIN HCL 0.4 MG CAPSULE PO (09:15)
[2024-08-04] MEDS: ASPIRIN 81 MG TAB.CHEW PO (09:15)
[2024-08-04] MEDS: METHYLPREDNISOLONE SOD SUCC PF 125 MG/2 ML VIAL 60 MG IVP (09:15)
[2024-08-04] MEDS: PRIMIDONE 50 MG TABLET PO (09:15)
[2024-08-04] MEDS: LISINOPRIL 20 MG TABLET 40 MG PO (09:15)
[2024-08-04] MEDS: ALLOPURINOL 300 MG TABLET PO (09:15)
[2024-08-04] MEDS: FLUTICASONE PROPIONATE 50 MCG NASAL SPRAY 2 SPRAY NS (09:16)
[2024-08-04] MEDS: POTASSIUM CITRATE 10 MEQ ER TABLET PO (09:16)
[2024-08-04] MEDS: SOLIFENACIN SUCCINATE 10 MG TABLET PO (09:16)
[2024-08-04] MEDS: FLUCONAZOLE 100 MG TABLET 200 MG PO (09:16)
--- NOTE | 2024-08-05 13:13 | CM.DCFOLLOWU ---
1st attempt 08/05/24, no answer
--- NOTE | 2024-08-06 11:55 | CM.DCFOLLOWU ---
Person spoke with: Tom How are you feeling? Much better How is your pain? No pain Did you understand your discharge instructions? Yes Do you have any questions about your discharge instructions? No Were you given any prescriptions at discharge? Yes Were you able to get your prescriptions filled? Yes Do you understand how to take your medications as ordered? Yes Do you have any questions about your follow up appointment and do you plan to keep your follow up appointment? No I called and scheduled it Is there anything else that you would like to discuss? No Questions/Comments/Concerns/Other:
== END 2024-08-04 09:52 | disposition home or self-care (01) | DRG 871 ==
LOC: ER 16:41 → MS 17:48
PROVIDERS: Admitting Provider Family Medicine; Emergency Provider Emergency Medicine; PCP Family Medicine; Visit Provider Family Medicine
DX: A41.9 Sepsis, unspecified organism (principal); J18.9 Pneumonia, unspecified organism; U07.1 COVID-19; J44.1 Chronic obstructive pulmonary disease with (acute) exacerbation; E87.20 Acidosis, unspecified; J20.9 Acute bronchitis, unspecified; R65.20 Severe sepsis without septic shock; E78.00 Pure hypercholesterolemia, unspecified; I11.0 Hypertensive heart disease with heart failure; I50.9 Heart failure, unspecified; J43.2 Centrilobular emphysema; L40.9 Psoriasis, unspecified; M25.569 Pain in unspecified knee; N40.0 Benign prostatic hyperplasia without lower urinary tract symptoms; R25.1 Tremor, unspecified; Z87.891 Personal history of nicotine dependence; Z79.82 Long term (current) use of aspirin; Z79.51 Long term (current) use of inhaled steroids; Z79.899 Other long term (current) 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
CPT/HCPCS: 36415; 71045; 73562; 80053; 80061; 81001; 82800; 83036; 83525; 83605; 83880; 84436; 84443; 84481; 84484; 84550; 85007; 85025; 85027; 87070; 87205; 87420; 87804; 87811; 93005; 94640; 94667; 94668; 94761; 96374; 99285; G0103; J2060; J2543; J2919

== ENCOUNTER 2024-08-03 08:34 | Outpatient (REF) | payer MEDICARE, OTHER, SELFPAY ==
--- OUTSIDE RECORDS SUMMARY | 2024-08-05 06:50 | XMS_ITS | CCD ---
Author Organization [facility] CliniSywv Care Team Providers Care Plan Manager Name Role Phone MD Marielle Lerma Primary Care Provider [phone] MD Micki Zeng Attending Provider [phone] Marielle Lerma Primary Care Physician [phone] THOR, DR SWEET Admitting Unavailable ZENG, DR [...] Unavailable Marielle Lerma MD Primary Care Provider [phone] Allergies Allergy Classification Reported Allergen(s) Allergy Type Date of Onset Reaction(s) Facility (1 source) No Known Medication Allergies; Translations: [No Known Medication Allergies] Propensity to adverse reactions (disorder) [facility] Repository Medications Current Medications Medication Drug [...] by mouth in the morning HYDROcodone-acetami nophen ([place]) 10-325 MG tablet Take 1 tablet by mouth in the morning and 1 tablet before bedtime. 12/29/2023 Active Start: 05-29-2021 take 1 tablet by isa th once daily acetaminophen-hydrocodone 325 mg-5 mg or al tablet 1 tab(s), Oral, Daily pain, Refill(s) 0 Start Date: 05/29/21 Status: Ordered Start: 09-07-2019 End: 10-12-2019 take 1 tablet by mouth every four to six hours Hydrocodone-Acetaminophen ([place]) 5-325 mg tablet Active 1 TAB PO EVERY 4-6 HOURS 40 7 September 28, 2019 1:45pm allopurinol 300 mg oral tablet (6 sources) Xanthine Oxidase Inhibitor Start: 11-27-2023 take 1 tablet by mouth once daily allopurinol 300 mg Tab 300 mg = 1 tab(s), Oral, Daily, # 90 tab(s), Refills(s) 3, Pharmacy: [facility]/pharmacy #[id number], 180, cm, 04/11/23 11:56:00 EDT, Height/Length Dosing, 127, kg, 04/11/23 11:56:00 EDT, Weight Dosing Start Date: 03/02/24 Status: Ordered Start: 03-10-2023 take 1 tablet by isa th once daily allopurinol 300 mg Tab 300 mg = 1 tab(s), Oral, Daily, # 90 tab(s), Refills(s) 3, Pharmacy: [facility]/pharmacy #[id number], 180, cm, 08/19/22 9:50:00 EST, Height/Length Dosing, 136.2, kg, 08/19/22 9:50:00 EST, Weight Dosing Start Date: 03/10/23 Status: Ordered Start: 02-25-2022 allopurinol 30 0 mg Tab 150 mg = 0.5 tab(s), Oral, Daily, # 30 tab(s), Refills(s) 11, Pharmacy: [facility] #[id number], 180, cm, 02/25/22 14:22:00 EDT, Height/Length Dosing, 135, kg, 02/25/22 14:22:00 EDT, Weight Dosing Start Date: 02/25/22 Status: Ordered aspirin 81 mg chewable tablet (4 sources) Platelet Aggregation Inhibitor, Nonsteroidal Anti-inflammatory Drug Start: 04-16-2024 aspirin 81 mg Callie w Tab 162 mg = 2 tab(s), Chewed, BID Start Date: 04/16/24 Status: Ordered Start: 02-10-2019 take 2 tablets by [facility] once daily aspirin 81 mg oral tablet 162 mg = 2 tab(s), Oral, Daily, Refills(s) 0 Start Date: 02/10/19 Status: Ordered Start: 01-02-2018 take 1 tablet by [facility] twice daily Aspirin (Aspir-81) 81 mg Tablet,Delayed [...] Start: 08-19-2022 take 1 capsule by mo [facility] once daily hydrochlorothiazide 12.5 mg Cap 12.5 mg = 1 cap(s), Oral, Daily, # 90 cap(s), Refills(s) 3, Pharmacy: [facility]/pharmacy #[id number], 180, cm, 08/19/22 9:50:00 EST, Height/Length Dosing, 136.2, kg, 08/19/22 9:50:00 EST, Weight Dosing Start Date: 08/19/22 Status: Ordered Start: 02-25-2022 take 1 capsule by [facility] once daily hydrochlorothiazide 12.5 mg Cap 12.5 mg = 1 cap(s), Oral, Daily, # 30 cap(s), Refills(s) 6, Pharmacy: [facility] #[id number], 180, cm, 02/25/22 14:22:00 EDT, Height/Length [...] 10 mg by mouth at bedtime Active Czmxkhuf-Hge-Mt-Lycopen-Lute in (Centrum Silver) 0.4-300-250 mg-mcg-mcg Tablet (1 source) Start: 09-02-2019 take 1 tablet by mouth once daily Rufwvcsm-Wqx-Rb-Lycopen-Lutein (Centrum Silver) 0.4-300-250 mg-mcg-mcg Tablet Active 1 [...] tab(s), Oral, BID, 60 tab(s), Refill(s) 11, [facility]/pharmacy #[id number], 180, cm, 04/11/23 11:56:00 EDT, Height/Length [...] BID, # 90 tab(s), Refills(s) 3, Pharmacy: [facility]/pharmacy #[id number], 180, cm, 08/19/22 9:50:00 EST, Height/Length [...] Daily, # 30 tab(s), Refills(s) 11, Pharmacy: [facility]/pharmacy #[id number], 180, cm, 02/25/22 14:22:00 EDT, Height/Length Dosing, 135, kg, 02/25/22 14:22:00 EDT, Weight Dosing Start Date: 02/25/22 Status: Ordered tadalafil 20 mg oral tablet (4 sources) Phosphodiesterase 5 Inhibitor Start: 10-23-2021 take 1 tablet by mouth once daily Cialis 20 mg Tab 20 mg = 1 tab(s), Oral, Daily, # 30 tab(s), Refills(s) 6, Pharmacy: [facility]/pharmacy #[id number], 180, cm, 10/22/21 14:56:00 EDT, Height/Length [...] Start: 10-28-2023 take 1 capsule by mo [facility] twice daily tamsulosin 0.4 mg Cap 0.4 mg = 1 cap(s), Oral, BID, # 180 cap(s), Refills(s) 3, Pharmacy: [facility]/pharmacy #[id number], 180, cm, 04/11/23 11:56:00 EDT, Height/Length Dosing, 127, kg, 04/11/23 11:56:00 EDT, Weight Dosing Start Date: 10/28/23 Status: Ordered Start: 04-11-2023 take 1 capsule by [facility] once daily tamsulosin 0.4 mg Cap 0.4 mg = 1 cap(s), Oral, Daily, # 90 cap(s), Refills(s) 3, Pharmacy: [facility]/pharmacy #[id number], 180, cm, 04/11/23 11:56:00 EDT, Height/Length [...] Coronary atherosclerosis; Translations: [Atherosclerotic heart disease of [place] coronary artery without angina pectoris] Onset: 11-05-2021 [...] Onset: 08-01-2022 Chronic Other 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) 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; Translations: [GROUP HOME CURRENT USE OF ASPIRIN] Onset: 08-01-2022 Episodic Other 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) 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; Translations: [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 CURRENT DRUG THERAPY] Onset: 08-01-2022 Episodic Other [...] Onset: 02-18-2022 Episodic Other 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) flavor tank tender (current) use of anticoagulants; Translations: [PHOTOENGRAVING APPRENTICE CURRNT USE ANTICOAGULANTS] Onset: 11-05-2021 Episodic Other [...] Micki ZENG MD Where: [facility] [address] [place] [address]- You Need to Schedule the Following Appointments Follow Up with Micki ZENG MD, URL When: Comments: 1 yr w/ ISIDRO Where: [facility] [address], [place] [address]- [phone] Medications What How Much When Instructions Unchanged [...] of urination (more content not included)... Normal [facility] Ambulatory Visit Summary Ambulatory Visit Summary [...] [facility] [address] , [place] [address]- [phone] Medications What How Much When Instructions Unchanged [...] your c (more content not included)... Normal [facility] Urology Office/Clinic Noteon 04-16-2024 Urology Office/Clinic [...] on 02/18/22. Stone analysis - 70% [place], 30% uric acid. LUIS 04/01/23 - cortical [...] Urology [address], [place] [address]- [id number] Additional Instructions: 1 yr w/ KUB Patient Education Kidney Stones, Ucdh-xp-Pgbe IBrenda, personally scribed for Dr. Zeng on [...] data Proced (more content not included)... Normal [facility] Comment on above: Result Comment: Elec tronically Signed By: Micki ZENG MD\.br\Date and Time Signed: 04/16/24 12:29 EDT\.br\Electronically Co-Signed By: Brenda Lopez\.br\Date and Time Co-Signed: 04/16/24 12:28 EDT CBC AUTO DIFFon 07-27-2022 BASO # 0.1 103/ul Normal 0.0-0.1 [facility] Comment on above: Performed By: #### U DINA, LIPID, TSH, BNP, CMP, T7 #### [facility] [address] [address] [address] Suzie Brooks Basophils/100 WBC (Bld) 0.5 % Normal 0.2-2.0 [facility] Comment on above: Performed By: #### U IDNA, LIPID, TSH, BNP, CMP, T7 #### [facility] [address] [address] [address] Suzie Brooks EO # 0.4 103/ul Normal 0.0-0.7 [facility] Comment on above: Performed By: #### U DINA, LIPID, TSH, BNP, CMP, T7 #### [facility] [address] [address] [address] Suzie Brooks Eosinophils/100 WBC (Bld) 3.3 % Normal 0.9-7.0 [facility] Comment on above: Performed By: #### U DINA, LIPID, TSH, BNP, CMP, T7 #### [facility] [address] [address] [address] Suzie Brooks Erythrocyte distribution width (RBC) [Ratio] 14.6 % Normal 11.0-15.0 [facility] Comment on above: Performed By: #### U DINA, LIPID, TSH, BNP, CMP, T7 #### [facility] [address] [place] [address] Dr. Suzie Brooks Hematocrit (Bld) [Volume fraction] 42.0 % Normal 42.0-54.0 [facility] Comment on above: Performed By: #### U DINA, LIPID, TSH, BNP, CMP, T7 #### [facility] [address] [place] [address] Dr. Suzie Brooks Hemoglobin (Bld) [Mass/Vol] 14.1 g/dL Normal 14.0-18.0 [facility] Comment on above: Performed By: #### U DINA, LIPID, TSH, BNP, CMP, T7 #### [facility] [address] [place] [address] Dr. Suzie Brooks IG # 0.03 10e3/ul Normal 0.00-0.03 [facility] Comment on above: Performed By: #### U DINA, LIPID, TSH, BNP, CMP, T7 #### [facility] [address] [place] [address] Dr. Suzie Brooks IG % 0.3 % Normal 0.0-0.5 [facility] Comment on above: Performed By: #### U DINA, LIPID, TSH, BNP, CMP, T7 #### [facility] [address] [place] [address] Dr. Suzie Brooks LYMPH # 3.1 103/ul Normal 1.2-3.8 [facility] Comment on above: Performed By: #### U DINA, LIPID, TSH, BNP, CMP, T7 #### [facility] [address] [place] [address] Dr. Suzie Brooks Lymphocytes/100 WBC (Bld) 28.2 % Normal 20.5-60.0 [facility] Comment on above: Performed By: #### U DINA, LIPID, TSH, BNP, CMP, T7 #### [facility] [address] [address] [address] Suzie Brooks MANUAL DIFF REQ NO Normal [facility] Comment on above: Performed By: #### U DINA, LIPID, TSH, BNP, CMP, T7 #### [facility] [address] [address] [address] Suzie Brooks MCH (RBC) [Entitic mass] 28.5 pg Normal 25.9-34.0 [facility] Comment on above: Performed By: #### U DINA, LIPID, TSH, BNP, CMP, T7 #### [facility] [address] [place] [address] Dr. Suzie Brooks MCHC (RBC) [Mass/Vol] 33.6 g/dL Normal 29.9-35.2 [facility] Comment on above: Performed By: #### U DINA, LIPID, TSH, BNP, CMP, T7 #### [facility] [address] [place] [address] Dr. Suzie Brooks MCV (RBC) [Entitic vol] 85.0 fL Normal 80.0-94.0 [facility] Comment on above: Performed By: #### U DINA, LIPID, TSH, BNP, CMP, T7 #### [facility] [address] [place] [address] Dr. Suzie Brooks MONO # 0.8 103/ul Normal 0.3-0.8 [facility] Comment on above: Performed By: #### U DINA, LIPID, TSH, BNP, CMP, T7 #### [facility] [address] [place] [address] Dr. Suzie Brooks Monocytes/100 WBC (Bld) 7.2 % Normal 1.7-12.0 [facility] Comment on above: Performed By: #### U DINA, LIPID, TSH, BNP, CMP, T7 #### [facility] [address] [place] [address] Dr. Suzie Brooks NEUT # 6.7 103/ul Critically high 1.4-6.5 [facility] Comment on above: Performed By: #### U DINA, LIPID, TSH, BNP, CMP, T7 #### [facility] [address] [address] [address] Suzie Brooks Neutrophils/100 WBC (Bld) 60.5 % Normal 43.0-75.0 [facility] Comment on above: Performed By: #### U DINA, LIPID, TSH, BNP, CMP, T7 #### [facility] [address] [address] [address] Suzie Brooks Platelet mean volume (Bld) [Entitic vol] 9.6 fL Normal 9.5-13.5 [facility] Comment on above: Performed By: #### U DINA, LIPID, TSH, BNP, CMP, T7 #### [facility] [address] [place] [address] Dr. Suzie Brooks PLT 266 103/ul Normal 150-450 [facility] Comment on above: Performed By: #### U DINA, LIPID, TSH, BNP, CMP, T7 #### [facility] [address] [place] [address] Dr. Suzie Brooks RBC 4.94 106/ul Normal 4.70-6.10 [facility] Comment on above: Performed By: #### U DINA, LIPID, TSH, BNP, CMP, T7 #### [facility] [address] [place] [address] Dr. Suzie Brooks WBC 11.1 103/ul Critically high 4.0-11.0 [facility] Comment on above: Performed By: #### U DINA, LIPID, TSH, BNP, CMP, T7 #### [facility] [address] [place] [address] Dr. Suzie Brooks PROF 14(COMP METB)on 022 Albumin [Mass/Vol] 3.2 g/dL Critically low 3.4-5.0 [facility] Comment on above: Performed By: #### C VDTBH #### [facility] [address] [place] [address] Dr. Suzie Brooks Albumin/Globulin [Mass ratio] 0.9 {ratio} Normal [facility] Comment on above: Performed By: #### C VDTBH #### [facility] [address] [address] [address] Suzie Brooks ALP [Catalytic activity/Vol] 60 U/L Normal 46-116 [facility] Comment on above: Performed By: #### C VDTBH #### [facility] [address] [address] [address] Suzie Brooks ALT [Catalytic activity/Vol] 27 U/L Normal 16-63 [facility] Comment on above: Performed By: #### C VDTBH #### [facility] [address] [address] [address] Suzie Brooks Anion gap [Moles/Vol] 10.4 mmol/L Normal [facility] Comment on above: Performed By: #### C VDTBH #### [facility] [address] [place] [address] Dr. Suzie Brooks AST [Catalytic activity/Vol] 23 U/L Normal 15-37 [facility] Comment on above: Performed By: #### C VDTBH #### [facility] [address] [address] [address] Suzie Brooks Bilirubin [Mass/Vol] 0.4 mg/dL Normal 0.2-1.0 [facility] Comment on above: Performed By: #### C VDTBH #### [facility] [address] [place] [address] Dr. Suzie Brooks Calcium [Mass/Vol] 8.4 mg/dL Critically low 8.5-10.[address] [facility] Comment on above: Performed By: #### C VDTBH #### [facility] [address] [place] [address] Dr. Suzie Brooks Chloride [Moles/Vol] 104 mmol/L Normal 98-107 [facility] Comment on above: Performed By: #### C VDTBH #### [facility] [address] [address] [address] Suzie Brooks CO2 [Moles/Vol] 26.1 mmol/L Normal 21.0-32.0 [facility] Comment on above: Performed By: #### C VDTBH #### [facility] [address] [address] [address] Suzie Brooks Creatinine [Mass/Vol] 0.90 mg/dL Normal 0.70-1.30 [facility] Comment on above: Performed By: #### C VDTBH #### [facility] [address] [place] [address] Dr. Suzie Brooks EGFR-AF ENGLISH >60 Normal >=60 [facility] Comment on above: Performed By: #### C VDTBH #### [facility] [address] [address] [address] Suzie Brooks EGFR-NON AF ENGLISH >60 Normal >=60 [facility] Comment on above: Performed By: #### C VDTBH #### [facility] [address] [place] [address] Dr. Suzie Brooks Globulin (S) [Mass/Vol] 3.4 g/dL Normal [facility] Comment on above: Performed By: #### C VDTBH #### [facility] [address] [place] [address] Dr. Suzie Brooks Glucose [Mass/Vol] 111 mg/dL Critically high 74-106 [facility] Comment on above: Performed By: #### C VDTBH #### [facility] [address] [place] [address] Dr. Suzie Brooks Potassium [Moles/Vol] 3.5 mmol/L Normal 3.5-5.1 [facility] Comment on above: Performed By: #### C VDTBH #### [facility] [address] [place] [address] Dr. Suzie Brooks Protein [Mass/Vol] 6.6 g/dL Normal 6.4-8.2 [facility] Comment on above: Performed By: #### C VDTBH #### [facility] [address] [place] [address] Dr. Suzie Brooks Sodium [Moles/Vol] 137 mmol/L Normal 136-145 [facility] Comment on above: Performed By: #### C VDTBH #### [facility] [address] [place] [address] Dr. Suzie Brooks Urea nitrogen [Mass/Vol] 13.0 mg/dL Normal 7.0-18.0 [facility] Comment on above: Performed By: #### C VDTBH #### [facility] [address] [place] [address] Dr. Suzie Brooks Urea nitrogen/Creatinine [Mass ratio] 14.4 mg/mg Normal [facility] Comment on above: Performed By: #### C VDTBH #### [facility] [address] [place] [address] Dr. Suzie Brooks BNPon 07-26-2022 Natriuretic peptide B (Bld) [Mass/Vol] 118.0 pg/mL Normal <=900.0 [facility] Comment on above: Performed By: #### U DINA, LIPID, TSH, BNP, CMP, T7 #### [facility] [address] [place] [address] Dr. Suzie Brooks CARDIAC MJ 3-6on 2 CK [Catalytic activity/Vol] 240 U/L Normal 39-308 [facility] Comment on above: Performed By: #### U DINA, LIPID, TSH, BNP, CMP, T7 #### [facility] [address] [place] [address] Dr. Suzie Brooks CK.MB [Mass/Vol] 3.43 ng/mL Normal <=3.60 [facility] Comment on above: Performed By: #### U DINA, LIPID, TSH, BNP, CMP, T7 #### [facility] [address] [place] [address] Dr. Suzie Brooks HSTROP 8.6 pg/mL Normal 4.0-76.1 [facility] Comment on above: Result Comment: CUT- OFF POINTS HAVE BEEN ESTABLISHED BASED ON THE FOURTH UNIVERSAL DEFINITIONS OF MYOCARDIAL INFARCTION. THE UPPER REFERENCE LIMIT (URL) OF TROPONIN, DEFINED THE 99TH PERCENTILE OF cTnI DISTRIBUTION IN A REFERENCE POPULATION, HAS BEEN CONFIRMED THE DECISION THRESHOLD FOR [place] DIAGNOSIS. Performed By: #### U DINA, LIPID, TSH, BNP, CMP, T7 #### [facility] [address] [address] [address] Suzie Brooks CK [Catalytic activity/Vol] 239 U/L Normal 39-308 [facility] Comment on above: Performed By: #### M AG24 #### [facility] [address] [place] [address] Dr. Suzie Brooks CK.MB [Mass/Vol] 2.93 ng/mL Normal <=3.60 [facility] Comment on above: Performed By: #### M AG24 #### [facility] [address] [place] [address] Dr. Suzie Brooks HSTROP 10.4 pg/mL Normal 4.0-76.1 [facility] Comment on above: Result Comment: CUT- OFF POINTS HAVE BEEN ESTABLISHED BASED ON THE FOURTH UNIVERSAL DEFINITIONS OF MYOCARDIAL INFARCTION. THE UPPER REFERENCE LIMIT (URL) OF TROPONIN, DEFINED THE 99TH PERCENTILE OF cTnI DISTRIBUTION IN A REFERENCE POPULATION, HAS BEEN CONFIRMED THE DECISION THRESHOLD FOR [place] DIAGNOSIS. Performed By: #### M AG24 #### [facility] [address] [place] [address] Dr. Suzie Brooks CARDIAC MJ ADMITon 07-26- 022 CK [Catalytic activity/Vol] 234 U/L Normal 39-308 [facility] Comment on above: Performed By: #### O X24HR #### [facility] [address] [place] [address] Dr. Suzie Brooks CK.MB [Mass/Vol] 3.37 ng/mL Normal <=3.60 [facility] Comment on above: Performed By: #### O X24HR #### [facility] [address] [place] [address] Dr. Suzie Brooks HSTROP 9.0 pg/mL Normal 4.0-76.1 [facility] Comment on above: Result Comment: CUT- OFF POINTS HAVE BEEN ESTABLISHED BASED ON THE FOURTH UNIVERSAL DEFINITIONS OF MYOCARDIAL INFARCTION. THE UPPER REFERENCE LIMIT (URL) OF TROPONIN, DEFINED THE 99TH PERCENTILE OF cTnI DISTRIBUTION IN A REFERENCE POPULATION, HAS BEEN CONFIRMED THE DECISION THRESHOLD FOR [place] DIAGNOSIS. Performed By: #### O X24HR #### [facility] [address] [address] [address] Suzie Brooks EDIE 85 ng/mL Normal 16-96 [facility] Comment on above: Performed By: #### O X24HR #### [facility] [address] [place] [address] Dr. Suzie Broosk CBC AUTO DIFFon 07-26-2022 BASO # 0.1 103/ul Normal 0.0-0.1 [facility] Comment on above: Performed By: #### U DINA, LIPID, TSH, BNP, CMP, T7 #### [facility] [address] [place] [address] Dr. Suzie Brooks Basophils/100 WBC (Bld) 0.4 % Normal 0.2-2.0 [facility] Comment on above: Performed By: #### U DINA, LIPID, TSH, BNP, CMP, T7 #### [facility] [address] [place] [address] Dr. Suzie Brooks EO # 0.3 103/ul Normal 0.0-0.7 [facility] Comment on above: Performed By: #### U DINA, LIPID, TSH, BNP, CMP, T7 #### [facility] [address] [place] [address] Dr. Suzie Brooks Eosinophils/100 WBC (Bld) 2.5 % Normal 0.9-7.0 [facility] Comment on above: Performed By: #### U DINA, LIPID, TSH, BNP, CMP, T7 #### [facility] [address] [place] [address] Dr. Suzie Brooks Erythrocyte distribution width (RBC) [Ratio] 14.4 % Normal 11.0-15.0 [facility] Comment on above: Performed By: #### U DINA, LIPID, TSH, BNP, CMP, T7 #### [facility] [address] [place] [address] Dr. Suzie Brooks Hematocrit (Bld) [Volume fraction] 46.0 % Normal 42.0-54.0 [facility] Comment on above: Performed By: #### U DINA, LIPID, TSH, BNP, CMP, T7 #### [facility] [address] [place] [address] Dr. Suzie Brooks Hemoglobin (Bld) [Mass/Vol] 15.6 g/dL Normal 14.0-18.0 [facility] Comment on above: Performed By: #### U DINA, LIPID, TSH, BNP, CMP, T7 #### [facility] [address] [address] [address] Suzie Brooks IG # 0.07 10e3/ul Critically high 0.00-0.03 [facility] Comment on above: Performed By: #### U DINA, LIPID, TSH, BNP, CMP, T7 #### [facility] [address] [address] [address] Suzie Brooks IG % 0.6 % Critically high 0.0-0.5 [facility] Comment on above: Performed By: #### U DINA, LIPID, TSH, BNP, CMP, T7 #### [facility] [address] [place] [address] Dr. Suzie Brooks LYMPH # 2.9 103/ul Normal 1.2-3.8 [facility] Comment on above: Performed By: #### U DINA, LIPID, TSH, BNP, CMP, T7 #### [facility] [address] [address] [address] Suzie Brooks Lymphocytes/100 WBC (Bld) 24.2 % Normal 20.5-60.0 [facility] Comment on above: Performed By: #### U DINA, LIPID, TSH, BNP, CMP, T7 #### [facility] [address] [place] [address] Dr. Suzie Brooks MANUAL DIFF REQ NO Normal [facility] Comment on above: Performed By: #### U DINA, LIPID, TSH, BNP, CMP, T7 #### [facility] [address] [address] [address] Suzie Brooks MCH (RBC) [Entitic mass] 28.6 pg Normal 25.9-34.0 [facility] Comment on above: Performed By: #### U DINA, LIPID, TSH, BNP, CMP, T7 #### [facility] [address] [place] [address] Dr. Suzie Brooks MCHC (RBC) [Mass/Vol] 33.9 g/dL Normal 29.9-35.2 [facility] Comment on above: Performed By: #### U DINA, LIPID, TSH, BNP, CMP, T7 #### [facility] [address] [place] [address] Dr. Suzie Brooks MCV (RBC) [Entitic vol] 84.4 fL Normal 80.0-94.0 [facility] Comment on above: Performed By: #### U DINA, LIPID, TSH, BNP, CMP, T7 #### [facility] [address] [place] [address] Dr. Suzie Brooks MONO # 0.8 103/ul Normal 0.3-0.8 [facility] Comment on above: Performed By: #### U DINA, LIPID, TSH, BNP, CMP, T7 #### [facility] [address] [place] [address] Dr. Suzie Brooks Monocytes/100 WBC (Bld) 6.7 % Normal 1.7-12.0 [facility] Comment on above: Performed By: #### U DINA, LIPID, TSH, BNP, CMP, T7 #### [facility] [address] [place] [address] Dr. Suzie Brooks NEUT # 7.8 103/ul Critically high 1.4-6.5 [facility] Comment on above: Performed By: #### U DINA, LIPID, TSH, BNP, CMP, T7 #### [facility] [address] [place] [address] Dr. Suzie Brooks Neutrophils/100 WBC (Bld) 65.6 % Normal 43.0-75.0 [facility] Comment on above: Performed By: #### U DINA, LIPID, TSH, BNP, CMP, T7 #### [facility] [address] [place] [address] Dr. Suzie Brooks Platelet mean volume (Bld) [Entitic vol] 9.7 fL Normal 9.5-13.5 [facility] Comment on above: Performed By: #### U DINA, LIPID, TSH, BNP, CMP, T7 #### [facility] [address] [place], [place] [address] Dr. Suzie Brooks PLT 289 103/ul Normal 150-450 [facility] Comment on above: Performed By: #### U DINA, LIPID, TSH, BNP, CMP, T7 #### [facility] [address] [address] [address] Suzie Brooks RBC 5.45 106/ul Normal 4.70-6.10 [facility] Comment on above: Performed By: #### U DINA, LIPID, TSH, BNP, CMP, T7 #### [facility] [address] [place], [place] [address] Dr. Suzie Brooks WBC 11.9 103/ul Critically high 4.0-11.0 [facility] Comment on above: Performed By: #### U DINA, LIPID, TSH, BNP, CMP, T7 #### [facility] [address] [place], [place] [address] Dr. Suzie Brooks CTA CHEST WO W [...] BEHZAD CARRASQUILLO Date: 2022-07-26 11:59 Normal [facility] Covid-19 PCR (CVDTBH)on 07-11 SARS-CoV-2 (COVID-19) RNA SUKHJINDER+probe Ql (Unsp spec) Not detected Normal NOT DETECTED [facility] Comment on above: Result Comment: When diagnostic [...] for this test is supported by the [employer] of Health and Human Service's declaration that [...] DINA, LIPID, TSH, BNP, CMP, T7 #### [facility] [address] [place] [address] Dr. Suzie Brooks D-DIMERon 07-26-2022 D-DIMER 0.88 mg/L FEU Critically high <=0.59 [facility] Comment on above: Performed By: #### C VDTB #### [facility] [address] [place] [address] Dr. Suzie Brooks D-DIMER COMMENTS SEE BELOW Normal [facility] Comment on above: Result Comment: Incr eases [...] hospitalization. Performed By: #### C VDTB #### [facility] [address] [place] [address] Dr. Suzie Brooks ECHOCARDIO M/2D COMPLETEon 1 09-26-2021 ECHOCARDIO M/2D COMPLETE Patient: RIZWAN APARICIO Exam Date: 07/26/2022 : 1950 Gender:M Ordering : DR MARIELLE LERMA . Admission #: [id number] Family : Order #: [id number] CLICK HERE TO VIEW EXAM ECHOCARDIOGRAM REPORT [...] Rios M.D. on 07/26/2022 at 16:22 Normal [facility] [place] [facility] PROF 14(COMP METB)on 022 Albumin [Mass/Vol] 3.6 g/dL Normal 3.4-5.0 [facility] Comment on above: Performed By: #### U DINA, LIPID, TSH, BNP, CMP, T7 #### [facility] [address] [address] [address] Suzie Brooks Albumin/Globulin [Mass ratio] 0.9 {ratio} Normal [facility] [place] [facility] Comment on above: Performed By: #### U DINA, LIPID, TSH, BNP, CMP, T7 #### [facility] [address] [address] [address] Suzie Brooks ALP [Catalytic activity/Vol] 70 U/L Normal 46-116 [facility] [place] [facility] Comment on above: Performed By: #### U DINA, LIPID, TSH, BNP, CMP, T7 #### [facility] [address] [place], [place] [address] Dr. Suzie Brooks ALT [Catalytic activity/Vol] 30 U/L Normal 16-63 [facility] Comment on above: Performed By: #### U DINA, LIPID, TSH, BNP, CMP, T7 #### [facility] [address] [place] [address] Dr. Suzie Brooks Anion gap [Moles/Vol] 9.2 mmol/L Normal [facility] [place] [facility] Comment on above: Performed By: #### U DINA, LIPID, TSH, BNP, CMP, T7 #### [facility] [address] [place] [address] Dr. Suzie Brooks AST [Catalytic activity/Vol] 29 U/L Normal 15-37 [facility] Comment on above: Performed By: #### U DINA, LIPID, TSH, BNP, CMP, T7 #### [facility] [address] [place] [address] Dr. Suzie Brooks Bilirubin [Mass/Vol] 0.5 mg/dL Normal 0.2-1.0 [facility] [place] [facility] Comment on above: Performed By: #### U DINA, LIPID, TSH, BNP, CMP, T7 #### [facility] [address] [place] [address] Dr. Suzie Brooks Calcium [Mass/Vol] 8.8 mg/dL Normal 8.5-10.1 [facility] Comment on above: Performed By: #### U DINA, LIPID, TSH, BNP, CMP, T7 #### [facility] [address] [place] [address] Dr. Suzie Brooks Chloride [Moles/Vol] 102 mmol/L Normal 98-107 [facility] Comment on above: Performed By: #### U DINA, LIPID, TSH, BNP, CMP, T7 #### [facility] [address] [place] [address] Dr. Suzie Brooks CO2 [Moles/Vol] 27.2 mmol/L Normal 21.0-32.0 [facility] Comment on above: Performed By: #### U DINA, LIPID, TSH, BNP, CMP, T7 #### [facility] [address] [place] [address] Dr. Suzie Brooks Creatinine [Mass/Vol] 0.99 mg/dL Normal 0.70-1.30 [facility] Comment on above: Performed By: #### U DINA, LIPID, TSH, BNP, CMP, T7 #### [facility] [address] [address] [address] Suzie Brooks EGFR-AF ENGLISH >60 Normal >=60 [facility] Comment on above: Performed By: #### U DINA, LIPID, TSH, BNP, CMP, T7 #### [facility] [address] [address] [address] Suzie Brooks EGFR-NON AF ENGLISH >60 Normal >=60 [facility] [place] [facility] Comment on above: Performed By: #### U DINA, LIPID, TSH, BNP, CMP, T7 #### [facility] [address] [place] [address] Dr. Suzie Brooks Globulin (S) [Mass/Vol] 3.9 g/dL Normal [facility] [place] [facility] Comment on above: Performed By: #### U DINA, LIPID, TSH, BNP, CMP, T7 #### [facility] [address] [address] [address] Suzie Brooks Glucose [Mass/Vol] 125 mg/dL Critically high 74-106 T [facility] Comment on above: Performed By: #### U DINA, LIPID, TSH, BNP, CMP, T7 #### [facility] [address] [place] [address] Dr. Suzie Brooks Potassium [Moles/Vol] 3.4 mmol/L Critically low 3.5-5.1 [facility] [place] [facility] Comment on above: Performed By: #### U DINA, LIPID, TSH, BNP, CMP, T7 #### [facility] [address] [place] [address] Dr. Suzie Brooks Protein [Mass/Vol] 7.5 g/dL Normal 6.4-8.2 [facility] Comment on above: Performed By: #### U DINA, LIPID, TSH, BNP, CMP, T7 #### [facility] [address] [place] [address] Dr. Suzie Brooks Sodium [Moles/Vol] 135 mmol/L Critically low 136-[address] [facility] Comment on above: Performed By: #### U DINA, LIPID, TSH, BNP, CMP, T7 #### [facility] [address] [place] [address] Dr. Suzie Brooks Urea nitrogen [Mass/Vol] 15.0 mg/dL Normal 7.0-18.0 [facility] [place] [facility] Comment on above: Performed By: #### U DINA, LIPID, TSH, BNP, CMP, T7 #### [facility] [address] [place] [address] Dr. Suzie Brooks Urea nitrogen/Creatinine [Mass ratio] 15.2 mg/mg Normal [facility] Comment on above: Performed By: #### U DINA, LIPID, TSH, BNP, CMP, T7 #### [facility] [address] [place] [address] Dr. Suzie Brooks PROTIMEon 07-26-2022 INR Coag (PPP) [Relative time] 0.95 {INR} Normal [facility] [place] [facility] Comment on above: Performed By: #### C VDTBH #### [facility] [address] [place] [address] Dr. Suzie Brooks INR GUIDELINES SEE BELOW Normal [facility] Comment on above: Result Comment: TOMMY RED INR: 2.0 - 3.0 CONDITIONS NOT LISTED BELOW 2.5 - 3.5 FOR PROSTHETIC HEART VALVE REPLACEMENT 2.5 - 3.5 RECURRENT THROMBOSIS Performed By: #### C VDTBH #### [facility] [address] [place] [address] Dr. Suzie Brooks PT Coag (PPP) [Time] 10.3 s Normal 9.0-11.6 [facility] [place] [facility] Comment on above: Performed By: #### C VDTBH #### [facility] [address] [place] [address] Dr. Suzie Brooks PTTon 07-26-2022 aPTT Coag (Bld) [Time] 28.2 s Normal 22.3-36.2 [facility] [place] [facility] Comment on above: Performed By: #### C VDTBH #### [facility] [address] [place] [address] Dr. Suzie Brooks TSHon 07-26-2022 TSH 2.000 uIU/mL Normal 0.358-3.740 [facility] Comment on above: Performed By: #### O X24HR #### [facility] [id number] Suzie Brooks XR CHEST 1 Von [...] BEHZAD CARRASQUILLO Date: 2022-07-26 10:51 Normal [facility] CREATININEon 07-18-2022 Creatinine [Mass/Vol] 0.93 mg/dL Normal 0.70-1.30 [facility] [place] [facility] Comment on above: Performed By: #### U DINA, LIPID, TSH, BNP, CMP, T7 #### [facility] [address] [id number] [address] Suzie Brooks EGFR-AF ENGLISH >60 Normal >=60 [facility] Comment on above: Performed By: #### U DINA, LIPID, TSH, BNP, CMP, T7 #### [facility] [address] [id number] [address] Suzie Brooks EGFR-NON AF ENGLISH >60 Normal >=60 [facility] [place] [facility] Comment on above: Performed By: #### U DINA, LIPID, TSH, BNP, CMP, T7 #### [facility] [address] [place], [place] [address] Dr. Suzie Brooks XR IVPon 07-18-2022 XR IVP EXAMINATION: XR IVP HISTORY: Kidney stone COMPARISON: XR KUB 11/21/2021, CT abdomen pelvis 02/16/2022 TECHNIQUE: After obtaining patient consent a scout professional sports image was obtained followed by injection of [...] BEHZAD CARRASQUILLO Date: 2022-07-18 11:50 Normal [facility] INSULINon 05-16-2022 Insulin 59.0 uIU/mL Critically high 2.6-24.9 [facility] Comment on above: Performed By: #### U DINA, LIPID, TSH, BNP, CMP, T7 #### [facility] [address] [place] [address] Dr. Suzie Brooks BNPon 05-15-2022 Natriuretic peptide B (Bld) [Mass/Vol] 81.0 pg/mL Normal <=900.0 [facility] Comment on above: Performed By: #### U DINA, LIPID, TSH, BNP, CMP, T7 #### [facility] [address] [address] [address] Suzie Brooks CBC AUTO DIFFon 05-15-2022 BASO # 0.1 103/ul Normal 0.0-0.1 [facility] Comment on above: Performed By: #### C VDTBH #### [facility] [address] [place] [address] Dr. Suzie Brooks Basophils/100 WBC (Bld) 0.6 % Normal 0.2-2.0 [facility] Comment on above: Performed By: #### C VDTBH #### [facility] [address] [place] [address] Dr. Suzie Brooks EO # 0.3 103/ul Normal 0.0-0.7 [facility] Comment on above: Performed By: #### C VDTBH #### [facility] [address] [place] [address] Dr. Suzie Brooks Eosinophils/100 WBC (Bld) 2.9 % Normal 0.9-7.0 [facility] Comment on above: Performed By: #### C VDTBH #### [facility] [address] [place] [address] Dr. Suzie Brooks Erythrocyte distribution width (RBC) [Ratio] 14.1 % Normal 11.0-15.0 [facility] Comment on above: Performed By: #### C VDTBH #### [facility] [address] [place] [address] Dr. Suzie Brooks Hematocrit (Bld) [Volume fraction] 46.7 % Normal 42.0-54.0 [facility] [place] [facility] Comment on above: Performed By: #### C VDTBH #### [facility] [address] [place] [address] Dr. Suzie Brooks Hemoglobin (Bld) [Mass/Vol] 15.4 g/dL Normal 14.0-18.0 [facility] [place] [facility] Comment on above: Performed By: #### C VDTBH #### [facility] [address] [place] [address] Dr. Suzie Brooks IG # 0.03 10e3/ul Normal 0.00-0.03 [facility] Comment on above: Performed By: #### C VDTBH #### [facility] [address] [place] [address] Dr. Suzie Brooks IG % 0.3 % Normal 0.0-0.5 [facility] Comment on above: Performed By: #### C VDTBH #### [facility] [address] [place] [address] Dr. Suzie Brooks LYMPH # 2.6 103/ul Normal 1.2-3.8 [facility] Comment on above: Performed By: #### C VDTBH #### [facility] [address] [place] [address] Dr. Suzie Brooks Lymphocytes/100 WBC (Bld) 25.1 % Normal 20.5-60.0 [facility] [place] [facility] Comment on above: Performed By: #### C VDTBH #### [facility] [address] [place] [address] Dr. Suzie Brooks MANUAL DIFF REQ NO Normal [facility] Comment on above: Performed By: #### C VDTBH #### [facility] [address] [place] [address] Dr. Suzie Brooks MCH (RBC) [Entitic mass] 28.6 pg Normal 25.9-34.0 [facility] [place] [facility] Comment on above: Performed By: #### C VDTBH #### [facility] [address] [place] [address] Dr. Suzie Brooks MCHC (RBC) [Mass/Vol] 33.0 g/dL Normal 29.9-35.2 [facility] [place] [facility] Comment on above: Performed By: #### C VDTBH #### [facility] [address] [place] [address] Dr. Suzie Brooks MCV (RBC) [Entitic vol] 86.8 fL Normal 80.0-94.0 [facility] [place] [facility] Comment on above: Performed By: #### C VDTBH #### [facility] [address] [place] [address] Dr. Suzie Brooks MONO # 0.7 103/ul Normal 0.3-0.8 [facility] Comment on above: Performed By: #### C VDTBH #### [facility] [address] [place] [address] Dr. Suzie Brooks Monocytes/100 WBC (Bld) 6.8 % Normal 1.7-12.0 [facility] Comment on above: Performed By: #### C VDTBH #### [facility] [address] [place] [address] Dr. Suzie Brooks NEUT # 6.5 103/ul Normal 1.4-6.5 [facility] Comment on above: Performed By: #### C VDTBH #### [facility] [address] [place] [address] [address] Suzie Brooks Neutrophils/100 WBC (Bld) 64.3 % Normal 43.0-75.0 [facility] [place] [facility] Comment on above: Performed By: #### C VDTBH #### [facility] [address] [address] [address] Suzie Brooks Platelet mean volume (Bld) [Entitic vol] 9.5 fL Normal 9.5-13.5 [facility] [place] [facility] Comment on above: Performed By: #### C VDTBH #### [facility] [address] [place] [address] Dr. Suzie Brooks PLT 273 103/ul Normal 150-450 [facility] [place] [facility] Comment on above: Performed By: #### C VDTBH #### [facility] [address] [place] [address] Dr. Suzie Brooks RBC 5.38 106/ul Normal 4.70-6.10 [facility] Comment on above: Performed By: #### C VDTBH #### [facility] [address] [place] [address] Dr. Suzie Brooks WBC 10.2 103/ul Normal 4.0-11.0 [facility] [place] [facility] Comment on above: Performed By: #### C VDTBH #### [facility] [address] [place] [address] Dr. Suzie Brooks FREE THYROXINE INDEX T7on FTI 2.23 Normal 1.30-4.50 [facility] [place] [facility] Comment on above: Performed By: #### U DINA, LIPID, TSH, BNP, CMP, T7 #### [facility] [address] [place] [address] Dr. Suzie Brooks T3U 36.0 % Normal 33.0-40.0 [facility] [place] [facility] Comment on above: Performed By: #### U DINA, LIPID, TSH, BNP, CMP, T7 #### [facility] [address] [place] [address] Dr. Suzie Brooks T4 [Mass/Vol] 6.20 ug/dL Normal 4.50-12.10 [facility] Comment on above: Performed By: #### U DINA, LIPID, TSH, BNP, CMP, T7 #### [facility] [address] [address] [address] Suzie Brooks GLYCOHEMOGLOBIN A1Con 2021 ADA RECOMMENDATION SEE BELOW Normal [facility] Comment on above: Result Comment: ADA RECOMMENDED LIMIT 4.0 - 6.0 ADA THERAPEUTIC TARGET < 7.0 ACTION SUGGESTED > 7.0 Performed By: #### U DINA, LIPID, TSH, BNP, CMP, T7 #### [facility] [address] [address] [address] Suzie Brooks Glucose [Mass/Vol] 111 mg/dL Normal [facility] Comment on above: Performed By: #### U DINA, LIPID, TSH, BNP, CMP, T7 #### [facility] [address] [address] [address] Suzie Brooks HbA1c (Bld) [Mass fraction] 5.5 % Normal 4.5-6.2 [facility] [place] [facility] Comment on above: Performed By: #### U DINA, LIPID, TSH, BNP, CMP, T7 #### [facility] [address] [address] [address] Suzie Brooks LIPID PROFILEon 05-15-2022 CHOL-HDL RATIO NORM SEE BELOW Normal [facility] Comment on above: Result Comment: 3.3 - 4.4 LOW RISK 4.4 - 7.1 AVERAGE RISK 7.1 - 11.0 MODERATE RISK >11.0 HIGH RISK Performed By: #### U DINA, LIPID, TSH, BNP, CMP, T7 #### [facility] [address] [address] [address] Suzie Brooks Cholesterol [Mass/Vol] 136 mg/dL Normal <=200 [facility] [place] [facility] Comment on above: Performed By: #### U DINA, LIPID, TSH, BNP, CMP, T7 #### [facility] [address] [address] [address] Suzie Brooks Cholesterol in HDL [Mass/Vol] 34 mg/dL Critically low 40-60 [facility] [place] [facility] Comment on above: Performed By: #### U DINA, LIPID, TSH, BNP, CMP, T7 #### [facility] [address] [address] [address] Suzie Brooks Cholesterol in LDL [Mass/Vol] 49.8 mg/dL Normal [facility] [place] [facility] Comment on above: Performed By: #### U DINA, LIPID, TSH, BNP, CMP, T7 #### [facility] [address] [address] [address] Suzie Brooks Cholesterol.total/Ch olesterol in HDL [Mass ratio] 4.0 {ratio} Normal [facility] [place] [facility] Comment on above: Performed By: #### U DINA, LIPID, TSH, BNP, CMP, T7 #### [facility] [address] [address] [address] Suzie Brooks HDL NORMAL > or = 60 mg/dl - LO W CARDIOVASCULAR RISK <40 mg/dl - HIGH CARDIOVASCULAR RISK Normal [facility] [place] [facility] Comment on above: Performed By: #### U DINA, LIPID, TSH, BNP, CMP, T7 #### [facility] [address] [address] [address] Suzie Brooks LDL CALC NORMAL SEE BELOW Normal [facility] Comment on above: Result Comment: <100 mg/dl OPTIMAL 100 - 129 mg/dl NEAR OR ABOVE OPTIMAL 130 - 159 mg/dl BORDERLINE HIGH 160 - 189 mg/dl HIGH >190 mg/dl VERY HIGH Performed By: #### U DINA, LIPID, TSH, BNP, CMP, T7 #### [facility] [address] [address] [address] Suzie Brooks Triglyceride [Mass/Vol] 261 mg/dL Critically high <=150 [facility] Comment on above: Performed By: #### U DINA, LIPID, TSH, BNP, CMP, T7 #### [facility] [address] [address] [address] Suzie Brooks VLDL CALC 52.2 mg/dL Normal [facility] [place] [facility] Comment on above: Performed By: #### U DINA, LIPID, TSH, BNP, CMP, T7 #### [facility] [address] [address] [address] Suzie Brooks PROF 14(COMP METB)on 022 Albumin [Mass/Vol] 3.6 g/dL Normal 3.4-5.0 [facility] Comment on above: Performed By: #### U DINA, LIPID, TSH, BNP, CMP, T7 #### [facility] [address] [place] [address] Dr. Suzie Brooks Albumin/Globulin [Mass ratio] 0.9 {ratio} Normal [facility] Comment on above: Performed By: #### U DINA, LIPID, TSH, BNP, CMP, T7 #### [facility] [address] [place] [address] Dr. Suzie Brooks ALP [Catalytic activity/Vol] 60 U/L Normal 46-116 [facility] [place] [facility] Comment on above: Performed By: #### U DINA, LIPID, TSH, BNP, CMP, T7 #### [facility] [address] [place] [address] Dr. Suzie Brooks ALT [Catalytic activity/Vol] 36 U/L Normal 16-63 [facility] [place] [facility] Comment on above: Performed By: #### U DINA, LIPID, TSH, BNP, CMP, T7 #### [facility] [address] [place] [address] Dr. Suzie Brooks Anion gap [Moles/Vol] 11.7 mmol/L Normal [facility] Comment on above: Performed By: #### U DINA, LIPID, TSH, BNP, CMP, T7 #### [facility] [address] [place] [address] Dr. Suzie Brooks AST [Catalytic activity/Vol] 28 U/L Normal 15-37 [facility] Comment on above: Performed By: #### U DINA, LIPID, TSH, BNP, CMP, T7 #### [facility] [address] [address] [address] Suzie Brooks Bilirubin [Mass/Vol] 0.6 mg/dL Normal 0.2-1.0 [facility] [place] [facility] Comment on above: Performed By: #### U DINA, LIPID, TSH, BNP, CMP, T7 #### [facility] [address] [address] [address] Suzie Brooks Calcium [Mass/Vol] 8.8 mg/dL Normal 8.5-10.1 [facility] Comment on above: Performed By: #### U DINA, LIPID, TSH, BNP, CMP, T7 #### [facility] [address] [address] [address] Suzie Brooks Chloride [Moles/Vol] 102 mmol/L Normal 98-107 [facility] [place] [facility] Comment on above: Performed By: #### U DINA, LIPID, TSH, BNP, CMP, T7 #### [facility] [address] [address] [address] Suzie Brooks CO2 [Moles/Vol] 27.9 mmol/L Normal 21.0-32.0 [facility] Comment on above: Performed By: #### U DINA, LIPID, TSH, BNP, CMP, T7 #### [facility] [address] [place] [address] Dr. Suzie Brooks Creatinine [Mass/Vol] 0.98 mg/dL Normal 0.70-1.30 [facility] Comment on above: Performed By: #### U DINA, LIPID, TSH, BNP, CMP, T7 #### [facility] [address] [place] [address] Dr. Suzie Brooks EGFR-AF ENGLISH >60 Normal >=60 [facility] Comment on above: Performed By: #### U DINA, LIPID, TSH, BNP, CMP, T7 #### [facility] [address] [place] [address] Dr. Suzie Brooks EGFR-NON AF ENGLISH >60 Normal >=60 [facility] Comment on above: Performed By: #### U DINA, LIPID, TSH, BNP, CMP, T7 #### [facility] [address] [address] [address] Suzie Brooks Globulin (S) [Mass/Vol] 3.8 g/dL Normal [facility] Comment on above: Performed By: #### U DINA, LIPID, TSH, BNP, CMP, T7 #### [facility] [address] [address] [address] Suzie Brooks Glucose [Mass/Vol] 107 mg/dL Critically high 74-106 [facility] Comment on above: Performed By: #### U DINA, LIPID, TSH, BNP, CMP, T7 #### [facility] [address] [address] [address] Suzie Brooks Potassium [Moles/Vol] 3.6 mmol/L Normal 3.5-5.1 [facility] Comment on above: Performed By: #### U DINA, LIPID, TSH, BNP, CMP, T7 #### [facility] [address] [place] [address] Dr. Suzie Brooks Protein [Mass/Vol] 7.4 g/dL Normal 6.4-8.2 [facility] Comment on above: Performed By: #### U DINA, LIPID, TSH, BNP, CMP, T7 #### [facility] [address] [place] [address] Dr. Suzie Brooks Sodium [Moles/Vol] 138 mmol/L Normal 136-145 [facility] Comment on above: Performed By: #### U DINA, LIPID, TSH, BNP, CMP, T7 #### [facility] [address] [place] [address] Dr. Suzie Brooks Urea nitrogen [Mass/Vol] 12.0 mg/dL Normal 7.0-18.0 [facility] Comment on above: Performed By: #### U DINA, LIPID, TSH, BNP, CMP, T7 #### [facility] [address] [place] [address] Dr. Suzie Brooks Urea nitrogen/Creatinine [Mass ratio] 12.2 mg/mg Normal [facility] Comment on above: Performed By: #### U DINA, LIPID, TSH, BNP, CMP, T7 #### [facility] [address] [place] [address] Dr. Suzie Brooks TSHon 05-15-2022 TSH 2.356 uIU/mL Normal 0.358-3.740 [facility] Comment on above: Performed By: #### U DINA, LIPID, TSH, BNP, CMP, T7 #### [facility] [address] [place] [address] Dr. Suzie Brooks URIC ACID SERUMon 05-15-2022 Urate [Mass/Vol] 5.2 mg/dL Normal 3.5-7.2 [facility] Comment on above: Performed By: #### U DINA, LIPID, TSH, BNP, CMP, T7 #### [facility] [address] [address] [address] Suzie Brooks CALCULI, URINARYon 2 2,8 Dihydroxyadenine Normal [facility] Comment on above: Performed By: #### U DINA, LIPID, TSH, BNP, CMP, T7 #### [facility] [address] [address] [address] Suzie Brooks Ammonium Acid Urate Normal [facility] Comment on above: Performed By: #### U DINA, LIPID, TSH, BNP, CMP, T7 #### [facility] [address] [address] [address] Suzie Brooks Bilirubin Ql (U) Normal [facility] Comment on above: Performed By: #### U DINA, LIPID, TSH, BNP, CMP, T7 #### [facility] [address] [address] [address] Suzie Brooks Ca Oxalate Dihydrate Normal [facility] Comment on above: Performed By: #### U DINA, LIPID, TSH, BNP, CMP, T7 #### [facility] [address] [address] [address] Suzie Brooks CaHPO4 (Brushite) Normal [facility] Comment on above: Performed By: #### U DINA, LIPID, TSH, BNP, CMP, T7 #### [facility] [address] [address] [address] Suzie Brooks Calcium Bilirubinate Normal [facility] Comment on above: Performed By: #### U DINA, LIPID, TSH, BNP, CMP, T7 #### [facility] [address] [address] [address] Suzie Brooks Calcium Carbonate Normal [facility] Comment on above: Performed By: #### U DINA, LIPID, TSH, BNP, CMP, T7 #### [facility] [address] [address] [address] Suzie Brooks Calcium Oxalate Monohydrate 70 % Normal [facility] Comment on above: Performed By: #### U DINA, LIPID, TSH, BNP, CMP, T7 #### [facility] [address] [address] [address] Suzie Brooks Calcium Palmitate Normal [facility] Comment on above: Performed By: #### U DINA, LIPID, TSH, BNP, CMP, T7 #### [facility] [address] [address] [address] Suzie Brooks Calcium Phosphate Normal [facility] Comment on above: Performed By: #### U DINA, LIPID, TSH, BNP, CMP, T7 #### [facility] [address] [address] [address] Suzie Brooks Calcium Stearate Normal [facility] Comment on above: Performed By: #### U DINA, LIPID, TSH, BNP, CMP, T7 #### [facility] [address] [address] [address] Suzie Brooks Carbonate Apatite Normal [facility] Comment on above: Performed By: #### U IDNA, LIPID, TSH, BNP, CMP, T7 #### [facility] [address] [address] [address] Suzie Brooks Cellular Material Normal [facility] Comment on above: Performed By: #### U DINA, LIPID, TSH, BNP, CMP, T7 #### [facility] [address] [address] [address] Suzie Brooks Cholesterol Normal [facility] Comment on above: Performed By: #### U DINA, LIPID, TSH, BNP, CMP, T7 #### [facility] [address] [address] [address] Suzie Brooks Color (U) Brown Normal [facility] Comment on above: Performed By: #### U DINA, LIPID, TSH, BNP, CMP, T7 #### [facility] [address] [address] [address] Suzie Brooks Comment [facility] Comment on above: Performed By: #### U DINA, LIPID, TSH, BNP, CMP, T7 #### [facility] [address] [address] [address] Suzie Brooks Comment Comment Normal [facility] Comment on above: Result Comment: Calc ulus received in liquid. Wet calculi must be dried before analysis, which delays reporting of results. Leaving calculi in liquid (such as water, saline, blood, urine) may lead to changes in composition. Performed By: #### U DINA, LIPID, TSH, BNP, CMP, T7 #### [facility] [address] [address] [address] Suzie Brooks Comment: Comment Normal [facility] Comment on above: Result Comment: Fantasma baez questions regarding Calculi Analysis [facility] at: [phone]. Performed By: #### U DINA, LIPID, TSH, BNP, CMP, T7 #### [facility] [address] [address] [address] Suzie Brooks Composition Comment Normal [facility] Comment on above: Result Comment: Perc entage (Represents the % composition) Performed By: #### U DINA, LIPID, TSH, BNP, CMP, T7 #### [facility] [address] [address] [address] Suzie Brooks Cystine Normal [facility] Comment on above: Performed By: #### U DINA, LIPID, TSH, BNP, CMP, T7 #### [facility] [address] [address] [address] Suzie Brooks Disclaimer: Comment Normal [facility] Comment on above: Result Comment: This test was developed and its performance characteristics determined by [facility]. It has not been cleared or approved by the Food and Drug Administration. Performed By: #### U DINA, LIPID, TSH, BNP, CMP, T7 #### [facility] [address] [address] [address] Suzie Brooks Dried Blood Normal [facility] Comment on above: Performed By: #### U DINA, LIPID, TSH, BNP, CMP, T7 #### [facility] [address] [address] [address] Suzie Brooks Drug or Metabolite Normal [facility] Comment on above: Performed By: #### U DINA, LIPID, TSH, BNP, CMP, T7 #### [facility] [address] [address] [address] Suzie Brooks Hydroxyapatite Normal [facility] Comment on above: Performed By: #### U DINA, LIPID, TSH, BNP, CMP, T7 #### [facility] [address] [address] [address] Suzie Brooks Mg NH4 PO4 (Struvite) [facility] Comment on above: Performed By: #### U DINA, LIPID, TSH, BNP, CMP, T7 #### [facility] [address] [address] [address] Suzie Brooks MgHPO4 (Newberyite) [facility] Comment on above: Performed By: #### U DINA, LIPID, TSH, BNP, CMP, T7 #### [facility] [address] [address] [address] Suzie Brooks Other component(s) Normal [facility] Comment on above: Performed By: #### U DINA, LIPID, TSH, BNP, CMP, T7 #### [facility] [address] [address] [address] Suzie Brooks PDF . [facility] Comment on above: Performed By: #### U DINA, LIPID, TSH, BNP, CMP, T7 #### [facility] [address] [address] [address] Suzie Brooks Photo Comment [facility] Comment on above: Result Comment: Phot ograph will follow under a separate cover Performed By: #### U DINA, LIPID, TSH, BNP, CMP, T7 #### [facility] [address] [address] [address] Suzie Brooks Please note: Comment [facility] Comment on above: Result Comment: Calc shamika report will follow via computer, mail or skin pass operator delivery. Performed By: #### U DINA, LIPID, TSH, BNP, CMP, T7 #### [facility] [address] [address] [address] Suzie Brooks Size 6x4 [facility] Comment on above: Result Comment: Mult iple pieces received. Dimensions of the largest piece reported. Performed By: #### U DINA, LIPID, TSH, BNP, CMP, T7 #### [facility] [address] [address] [address] Suzie Brooks Sodium Acid Urate Normal [facility] Comment on above: Performed By: #### U DINA, LIPID, TSH, BNP, CMP, T7 #### [facility] [address] [address] [address] Suzie Brooks Source Comment [facility] Comment on above: Result Comment: Not provided Performed By: #### U DINA, LIPID, TSH, BNP, CMP, T7 #### [facility] [address] [address] [address] Suzie Brooks Triamterene [facility] Comment on above: Performed By: #### U DINA, LIPID, TSH, BNP, CMP, T7 #### [facility] [address] [address] [address] Suzie Brooks Uric Acid 30 % [facility] Comment on above: Performed By: #### U DINA, LIPID, TSH, BNP, CMP, T7 #### [facility] [address] [address] [address] Suzie Brooks Uric Acid Dihydrate Normal [facility] Comment on above: Performed By: #### U DINA, LIPID, TSH, BNP, CMP, T7 #### [facility] [address] [address] [address] Suzie Brooks Weight 99 mg [facility] Comment on above: Performed By: #### U DINA, LIPID, TSH, BNP, CMP, T7 #### [facility] [address] [address] [address] Suzie Brooks Xanthine Normal [facility] Comment on above: Performed By: #### U DINA, LIPID, TSH, BNP, CMP, T7 #### [facility] [address] [address] [address] Suzie Brooks CBC AUTO DIFFon 02-18-2022 BASO # 0.0 103/ul Normal 0.0-0.1 [facility] Comment on above: Performed By: #### U DINA, LIPID, TSH, BNP, CMP, T7 #### [facility] [address] [place] [address] Dr. Suzie Brooks Basophils/100 WBC (Bld) 0.3 % Normal 0.2-2.0 [facility] Comment on above: Performed By: #### U DINA, LIPID, TSH, BNP, CMP, T7 #### [facility] [address] [place] [address] Dr. Suzie Brooks EO # 0.3 103/ul Normal 0.0-0.7 [facility] Comment on above: Performed By: #### U DINA, LIPID, TSH, BNP, CMP, T7 #### [facility] [address] [place] [address] Dr. Suzie Brooks Eosinophils/100 WBC (Bld) 2.3 % Normal 0.9-7.0 [facility] Comment on above: Performed By: #### U DINA, LIPID, TSH, BNP, CMP, T7 #### [facility] [address] [place] [address] Dr. Suzie Brooks Erythrocyte distribution width (RBC) [Ratio] 14.2 % Normal 11.0-15.0 [facility] Comment on above: Performed By: #### U DINA, LIPID, TSH, BNP, CMP, T7 #### [facility] [address] [place] [address] Dr. Suzie Brooks Hematocrit (Bld) [Volume fraction] 41.3 % Critically low 42.0-54.0 [facility] Comment on above: Performed By: #### U DINA, LIPID, TSH, BNP, CMP, T7 #### [facility] [address] [place] [address] Dr. Suzie Brooks Hemoglobin (Bld) [Mass/Vol] 13.4 g/dL Critically low 14.0-18.0 [facility] Comment on above: Performed By: #### U DINA, LIPID, TSH, BNP, CMP, T7 #### [facility] [address] [place] [address] Dr. Suzie Brooks IG # 0.03 10e3/ul Normal 0.00-0.03 [facility] Comment on above: Performed By: #### U DINA, LIPID, TSH, BNP, CMP, T7 #### [facility] [address] [address] [address] Suzie Brooks IG % 0.3 % Normal 0.0-0.5 [facility] Comment on above: Performed By: #### U DINA, LIPID, TSH, BNP, CMP, T7 #### [facility] [address] [place] [address] Dr. Suzie Brooks LYMPH # 2.0 103/ul Normal 1.2-3.8 [facility] Comment on above: Performed By: #### U DINA, LIPID, TSH, BNP, CMP, T7 #### [facility] [address] [place] [address] Dr. Suzie Brooks Lymphocytes/100 WBC (Bld) 18.0 % Critically low 20.5-60.0 [facility] Comment on above: Performed By: #### U DINA, LIPID, TSH, BNP, CMP, T7 #### [facility] [address] [place] [address] Dr. Suzie Brooks MANUAL DIFF REQ NO Normal [facility] Comment on above: Performed By: #### U DINA, LIPID, TSH, BNP, CMP, T7 #### [facility] [address] [place] [address] Dr. Suzie Brooks MCH (RBC) [Entitic mass] 28.8 pg Normal 25.9-34.0 [facility] Comment on above: Performed By: #### U DINA, LIPID, TSH, BNP, CMP, T7 #### [facility] [address] [place] [address] Dr. Suzie Brooks MCHC (RBC) [Mass/Vol] 32.4 g/dL Normal 29.9-35.2 [facility] Comment on above: Performed By: #### U DINA, LIPID, TSH, BNP, CMP, T7 #### [facility] [address] [place] [address] Dr. Suzie Brooks MCV (RBC) [Entitic vol] 88.6 fL Normal 80.0-94.0 [facility] Comment on above: Performed By: #### U DINA, LIPID, TSH, BNP, CMP, T7 #### [facility] [address] [place] [address] Dr. Suzie Brooks MONO # 1.0 103/ul Critically high 0.3-0.8 [facility] Comment on above: Performed By: #### U DINA, LIPID, TSH, BNP, CMP, T7 #### [facility] [address] [place] [address] Dr. Suzie Brooks Monocytes/100 WBC (Bld) 9.2 % Normal 1.7-12.0 [facility] Comment on above: Performed By: #### U DINA, LIPID, TSH, BNP, CMP, T7 #### [facility] [address] [place] [address] Dr. Suzie Brooks NEUT # 7.9 103/ul Critically high 1.4-6.5 [facility] Comment on above: Performed By: #### U DINA, LIPID, TSH, BNP, CMP, T7 #### [facility] [address] [place] [address] Dr. Suzie Brooks Neutrophils/100 WBC (Bld) 69.9 % Normal 43.0-75.0 [facility] Comment on above: Performed By: #### U DINA, LIPID, TSH, BNP, CMP, T7 #### [facility] [address] [place] [address] Dr. Suzie Brooks Platelet mean volume (Bld) [Entitic vol] 9.6 fL Normal 9.5-13.5 [facility] Comment on above: Performed By: #### U DINA, LIPID, TSH, BNP, CMP, T7 #### [facility] [address] [place] [address] Dr. Suzie Brooks PLT 218 103/ul Normal 150-450 [facility] Comment on above: Performed By: #### U DINA, LIPID, TSH, BNP, CMP, T7 #### [facility] [address] [place] [address] Dr. Suzie Brooks RBC 4.66 106/ul Critically low 4.70-6.10 [facility] Comment on above: Performed By: #### U DINA, LIPID, TSH, BNP, CMP, T7 #### [facility] [address] [address] [address] Suzie Brooks WBC 11.3 103/ul Critically high 4.0-11.0 [facility] Comment on above: Performed By: #### U DINA, LIPID, TSH, BNP, CMP, T7 #### [facility] [address] [id number] [address] Suzie Brooks CULTURE URINEon 02-18-2022 CULTURE URINE Culture Observations : NO GROWTH. Normal [facility] Comment on above: Performed By: #### M AG24 #### [facility] [address] [address] [address] Suzie Brooks Covid-19 PCR (CVDTBH)on 02-08 SARS-CoV-2 (COVID-19) RNA SUKHJINDER+probe Ql (Unsp spec) Not detected Normal NOT DETECTED [facility] Comment on above: Result Comment: When diagnostic [...] for this test is supported by the [employer] T[employer] of Health and Human Service's declaration that [...] used). Performed By: #### C VDTBH #### [facility] [address] [place], [place] [id number] Dr. Suzie Brooks PROF 14(COMP METB)on 022 Albumin [Mass/Vol] 3.0 g/dL Critically low 3.4-5.[address] [facility] Comment on above: Performed By: #### O X24HR #### [facility] [address] [address] [address] Suzie Brooks Albumin/Globulin [Mass ratio] 0.9 {ratio} Normal [facility] Comment on above: Performed By: #### O X24HR #### [facility] [address] [place] [address] Dr. Suzie Brooks ALP [Catalytic activity/Vol] 49 U/L Normal 46-116 [facility] Comment on above: Performed By: #### O X24HR #### [facility] [address] [place] [address] Dr. Suzie Brooks ALT [Catalytic activity/Vol] 35 U/L Normal 16-63 [facility] Comment on above: Performed By: #### O X24HR #### [facility] [address] [place] [address] Dr. Suzie Brooks Anion gap [Moles/Vol] 11.8 mmol/L Normal [facility] Comment on above: Performed By: #### O X24HR #### [facility] [address] [place] [address] Dr. Suzie Brooks AST [Catalytic activity/Vol] 27 U/L Normal 15-37 [facility] Comment on above: Performed By: #### O X24HR #### [facility] [address] [place] [address] Dr. Suzie Brooks Bilirubin [Mass/Vol] 0.4 mg/dL Normal 0.2-1.0 [facility] Comment on above: Performed By: #### O X24HR #### [facility] [address] [place] [address] Dr. Suzie Brooks Calcium [Mass/Vol] 7.6 mg/dL Critically low 8.5-10.[address] [facility] Comment on above: Performed By: #### O X24HR #### [facility] [address] [place] [address] Dr. Suzie Brooks Chloride [Moles/Vol] 106 mmol/L Normal 98-107 [facility] Comment on above: Performed By: #### O X24HR #### [facility] [address] [place] [address] Dr. Suzie Brooks CO2 [Moles/Vol] 26.2 mmol/L Normal 21.0-32.0 [facility] Comment on above: Performed By: #### O X24HR #### [facility] [address] [place] [address] Dr. Suzie Brooks Creatinine [Mass/Vol] 1.08 mg/dL Normal 0.70-1.30 [facility] Comment on above: Performed By: #### O X24HR #### [facility] [address] [place] [address] Dr. Suzie Brooks EGFR-AF ENGLISH >60 Normal >=60 [facility] Comment on above: Performed By: #### O X24HR #### [facility] [address] [place] [address] Dr. Suzie Brooks EGFR-NON AF ENGLISH >60 Normal >=60 [facility] Comment on above: Performed By: #### O X24HR #### [facility] [address] [place] [address] Dr. Suzie Brooks Globulin (S) [Mass/Vol] 3.2 g/dL Normal [facility] Comment on above: Performed By: #### O X24HR #### [facility] [address] [place] [address] Dr. Suzie Brooks Glucose [Mass/Vol] 107 mg/dL Critically high 74-106 T [facility] Comment on above: Performed By: #### O X24HR #### [facility] [address] [place] [address] Dr. Suzie Brooks Potassium [Moles/Vol] 4.0 mmol/L Normal 3.5-5.1 [facility] Comment on above: Performed By: #### O X24HR #### [facility] [address] [place] [address] Dr. Suzie Brooks Protein [Mass/Vol] 6.2 g/dL Critically low 6.4-8.[address] [facility] Comment on above: Performed By: #### O X24HR #### [facility] [address] [place] [address] Dr. Suzie Brooks Sodium [Moles/Vol] 140 mmol/L Normal 136-145 [facility] Comment on above: Performed By: #### O X24HR #### [facility] [address] [place] [address] Dr. Suzie Brooks Urea nitrogen [Mass/Vol] 14.0 mg/dL Normal 7.0-18.0 [facility] Comment on above: Performed By: #### O X24HR #### [facility] [address] [place] [address] Dr. Suzie Brooks Urea nitrogen/Creatinine [Mass ratio] 13.0 mg/mg Normal [facility] Comment on above: Performed By: #### O X24HR #### [facility] [address] [place] [address] Dr. Suzie Brooks CBC AUTO DIFFon 02-17-2022 BASO # 0.1 103/ul Normal 0.0-0.1 [facility] Comment on above: Performed By: #### M AG24 #### [facility] [address] [place] [address] Dr. Suzie Brooks Basophils/100 WBC (Bld) 0.4 % Normal 0.2-2.0 [facility] Comment on above: Performed By: #### M AG24 #### [facility] [address] [place] [address] Dr. Suzie Brooks EO # 0.3 103/ul Normal 0.0-0.7 [facility] Comment on above: Performed By: #### M AG24 #### [facility] [address] [place] [address] Dr. Suzie Brooks Eosinophils/100 WBC (Bld) 2.3 % Normal 0.9-7.0 [facility] Comment on above: Performed By: #### M AG24 #### [facility] [address] [place] [address] Dr. Suzie Brooks Erythrocyte distribution width (RBC) [Ratio] 13.8 % Normal 11.0-15.0 [facility] Comment on above: Performed By: #### M AG24 #### [facility] [address] [place] [address] Dr. Suzie Brooks Hematocrit (Bld) [Volume fraction] 45.2 % Normal 42.0-54.0 [facility] Comment on above: Performed By: #### M AG24 #### [facility] [address] [place] [address] Dr. Suzie Brooks Hemoglobin (Bld) [Mass/Vol] 14.9 g/dL Normal 14.0-18.0 [facility] Comment on above: Performed By: #### M AG24 #### [facility] [address] [address] [address] Suzie Brooks IG # 0.05 10e3/ul Critically high 0.00-0.03 [facility] Comment on above: Performed By: #### M AG24 #### [facility] [address] [place] [address] Dr. Suzie Brooks IG % 0.4 % Normal 0.0-0.5 [facility] Comment on above: Performed By: #### M AG24 #### [facility] [address] [place] [address] Dr. Suzie Brooks LYMPH # 2.5 103/ul Normal 1.2-3.8 [facility] Comment on above: Performed By: #### M AG24 #### [facility] [address] [place] [address] Dr. Suzie Brooks Lymphocytes/100 WBC (Bld) 17.3 % Critically low 20.5-60.0 [facility] Comment on above: Performed By: #### M AG24 #### [facility] [address] [place] [address] Dr. Suzie Brooks MANUAL DIFF REQ NO Normal [facility] Comment on above: Performed By: #### M AG24 #### [facility] [address] [place] [address] Dr. Suzie Brooks MCH (RBC) [Entitic mass] 28.7 pg Normal 25.9-34.0 [facility] Comment on above: Performed By: #### M AG24 #### [facility] [address] [place] [address] Dr. Suzie Brooks MCHC (RBC) [Mass/Vol] 33.0 g/dL Normal 29.9-35.2 [facility] Comment on above: Performed By: #### M AG24 #### [facility] [address] [place] [address] Dr. Suzie Brooks MCV (RBC) [Entitic vol] 87.1 fL Normal 80.0-94.0 [facility] Comment on above: Performed By: #### M AG24 #### [facility] [address] [place] [address] Dr. Suzie Brooks MONO # 1.0 103/ul Critically high 0.3-0.8 [facility] Comment on above: Performed By: #### M AG24 #### [facility] [address] [place] [address] Dr. Suzie Brooks Monocytes/100 WBC (Bld) 6.8 % Normal 1.7-12.0 [facility] Comment on above: Performed By: #### M AG24 #### [facility] [address] [place] [address] Dr. Suzie Brooks NEUT # 10.3 103/ul Critically high 1.4-6.5 [facility] Comment on above: Performed By: #### M AG24 #### [facility] [address] [place] [address] Dr. Suzie Brooks Neutrophils/100 WBC (Bld) 72.8 % Normal 43.0-75.0 [facility] Comment on above: Performed By: #### M AG24 #### [facility] [address] [place] [address] Dr. Suzie Brooks Platelet mean volume (Bld) [Entitic vol] 9.7 fL Normal 9.5-13.5 [facility] Comment on above: Performed By: #### M AG24 #### [facility] [address] [place] [address] Dr. Suzie Brooks PLT 253 103/ul Normal 150-450 [facility] Comment on above: Performed By: #### M AG24 #### [facility] [address] [place] [address] Dr. Suize Brooks RBC 5.19 106/ul Normal 4.70-6.10 [facility] Comment on above: Performed By: #### M AG24 #### [facility] [address] [place] [address] Dr. Suzie Brooks WBC 14.2 103/ul Critically high 4.0-11.0 [facility] Comment on above: Performed By: #### M AG24 #### [facility] [address] [place] [address] Dr. Suzie Brooks CULTURE BLOODon 02-17-2022 Microscopic examination of blood, culture Culture Observations: NO GROWTH AT 5 DAYS. Normal [facility] Comment on above: Performed By: #### M [id number] #### [facility] [address] [place] [address] Dr. Suzie Brooks Microscopic examination of blood, culture Culture Observations: NO GROWTH AT 5 DAYS. Normal [facility] [place] [facility] Comment on above: Performed By: #### M AG24 #### [facility] [address] [place] [address] Dr. Suzie Brooks ER URINE PROFILEon Bilirubin Ql (U) Negative Normal NEGATIVE [facility] Comment on above: Performed By: #### E RUR #### [facility] [address] [place] [address] Dr. Suzie Brooks Clarity (U) CLEAR Normal CLEAR [facility] [place] [facility] Comment on above: Performed By: #### E RUR #### [facility] [address] [place] [address] Dr. Suzie Brooks Color (U) DK. YELLOW Normal YELLOW [facility] [place] [facility] Comment on above: Performed By: #### E RUR #### [facility] [address] [place] [address] Dr. Suzie Brooks ERUDIOGOD A micrscopic examina tion will be performed if indicated. Normal [facility] [place] [facility] Comment on above: Performed By: #### E RUR #### [facility] [address] [place] [address] Dr. Suzie Brooks Glucose Ql (U) Negative Normal NEGATIVE [facility] Comment on above: Performed By: #### E RUR #### [facility] [address] [place] [address] Dr. Suzie Brooks Hemoglobin Ql (U) Negative Normal NEGATIVE [facility] Comment on above: Performed By: #### E RUR #### [facility] [address] [place] [address] Dr. Suzie Brooks Ketones Ql (U) Negative Normal NEGATIVE [facility] Comment on above: Performed By: #### E RUR #### [facility] [address] [place] [address] Dr. Suzie Brooks LEUKOCYTES Negative Normal NEGATIVE [facility] [place] [facility] Comment on above: Performed By: #### E RUR #### [facility] [address] [place] [address] Dr. Suzie Brooks Nitrite Ql (U) Negative Normal NEGATIVE [facility] Comment on above: Performed By: #### E RUR #### [facility] [address] [place] [address] Dr. Suzie Brooks pH (U) 5.0 [pH] Normal 5-9 [facility] [place] [facility] Comment on above: Performed By: #### E RUR #### [facility] [address] [place] [address] Dr. Suzie Brooks SPEC GRAVITY >=1.030 Abnormal 1.005-<=1.02 5 [facility] [place] [facility] Comment on above: Performed By: #### E RUR #### [facility] [address] [place] [address] Dr. Suzie Brooks UA PROTEIN Negative Normal NEGATIVE/ TRACE [facility] Comment on above: Performed By: #### E RUR #### [facility] [address] [place] [address] Dr. Suzie Brooks UR MICRO IND NOT INDICATED Normal [facility] Comment on above: Performed By: #### E RUR #### [facility] [address] [place] [address] Dr. Suzie Brooks Urobilinogen Qn (U) 0.2 {Behzad'U}/dL Normal 0.2 - 1. 0 [facility] [place] [facility] Comment on above: Performed By: #### E RUR #### [facility] [address] [address] [address] Suzie Brooks LACTATE/LACTIC ACIDon 2021 Lactate [Moles/Vol] 1.4 mmol/L Normal 0.4-1.9 [facility] Comment on above: Performed By: #### U DINA, LIPID, TSH, BNP, CMP, T7 #### [facility] [address] [address] [address] Suzie Brooks PROF CHEM 8 (BAS METB)on Anion gap [Moles/Vol] 12.2 mmol/L Normal [facility] [place] [facility] Comment on above: Performed By: #### U DINA, LIPID, TSH, BNP, CMP, T7 #### [facility] [address] [address] [address] Suzie Brooks Calcium [Mass/Vol] 8.1 mg/dL Critically low 8.5-10.1 [facility] Comment on above: Performed By: #### U DINA, LIPID, TSH, BNP, CMP, T7 #### [facility] [address] [address] [address] Suzie Brooks Chloride [Moles/Vol] 103 mmol/L Normal 98-107 [facility] [place] [facility] Comment on above: Performed By: #### U DINA, LIPID, TSH, BNP, CMP, T7 #### [facility] [address] [address] [address] Suzie Brooks CO2 [Moles/Vol] 26.1 mmol/L Normal 21.0-32.0 [facility] Comment on above: Performed By: #### U DINA, LIPID, TSH, BNP, CMP, T7 #### [facility] [address] [address] [address] Suzie Brooks Creatinine [Mass/Vol] 1.06 mg/dL Normal 0.70-1.30 [facility] [place] [facility] Comment on above: Performed By: #### U DINA, LIPID, TSH, BNP, CMP, T7 #### [facility] [address] [address] [address] Suzie Brooks EGFR-AF ENGLISH >60 Normal >=60 [facility] Comment on above: Performed By: #### U DINA, LIPID, TSH, BNP, CMP, T7 #### [facility] [address] [address] [address] Suzie Brooks EGFR-NON AF ENGLISH >60 Normal >=60 [facility] [place] [facility] Comment on above: Performed By: #### U DINA, LIPID, TSH, BNP, CMP, T7 #### [facility] [address] [address] [address] Suzie Brooks Glucose [Mass/Vol] 138 mg/dL Critically high 74-106 T [facility] Comment on above: Performed By: #### U DINA, LIPID, TSH, BNP, CMP, T7 #### [facility] [address] [address] [address] Suzie Brooks Potassium [Moles/Vol] 4.3 mmol/L Normal 3.5-5.1 [facility] [place] [facility] Comment on above: Performed By: #### U DINA, LIPID, TSH, BNP, CMP, T7 #### [facility] [address] [address] [address] Suzie Brooks Sodium [Moles/Vol] 137 mmol/L Normal 136-145 [facility] Comment on above: Performed By: #### U DINA, LIPID, TSH, BNP, CMP, T7 #### [facility] [address] [address] [address] Suzie Brooks Urea nitrogen [Mass/Vol] 14.0 mg/dL Normal 7.0-18.0 [facility] [place] [facility] Comment on above: Performed By: #### U DINA, LIPID, TSH, BNP, CMP, T7 #### [facility] [address] [address] [address] Suzie Brooks Urea nitrogen/Creatinine [Mass ratio] 13.2 mg/mg Normal [facility] [place] [facility] Comment on above: Performed By: #### U DINA, LIPID, TSH, BNP, CMP, T7 #### [facility] [address] [address] [address] Suzie Brooks TROPONIN, HIGH SENSITIVITYon 02-17-2022 HSTROP 8.4 pg/mL Normal 4.0-76.1 [facility] [place] [facility] Comment on above: Result Comment: CUT- OFF POINTS HAVE BEEN ESTABLISHED BASED ON THE FOURTH UNIVERSAL DEFINITIONS OF MYOCARDIAL INFARCTION. THE UPPER REFERENCE LIMIT (URL) OF TROPONIN, DEFINED THE 99TH PERCENTILE OF cTnI DISTRIBUTION IN A REFERENCE POPULATION, HAS BEEN CONFIRMED THE DECISION THRESHOLD FOR [place] DIAGNOSIS. Performed By: #### U DINA, LIPID, TSH, BNP, CMP, T7 #### [facility] [address] [place] [address] Dr. Suzie Brooks CBC AUTO DIFFon 02-16-2022 BASO # 0.1 103/ul Normal 0.0-0.1 [facility] Comment on above: Performed By: #### U DINA, LIPID, TSH, BNP, CMP, T7 #### [facility] [address] [place] [address] Dr. Suzie Brooks Basophils/100 WBC (Bld) 0.4 % Normal 0.2-2.0 [facility] Comment on above: Performed By: #### U DINA, LIPID, TSH, BNP, CMP, T7 #### [facility] [address] [place] [address] Dr. Suzie Brooks EO # 0.3 103/ul Normal 0.0-0.7 [facility] Comment on above: Performed By: #### U DINA, LIPID, TSH, BNP, CMP, T7 #### [facility] [address] [place] [address] Dr. Suzie Brooks Eosinophils/100 WBC (Bld) 2.5 % Normal 0.9-7.0 [facility] Comment on above: Performed By: #### U DINA, LIPID, TSH, BNP, CMP, T7 #### [facility] [address] [place] [address] Dr. Suzie Brooks Erythrocyte distribution width (RBC) [Ratio] 13.9 % Normal 11.0-15.0 [facility] Comment on above: Performed By: #### U DINA, LIPID, TSH, BNP, CMP, T7 #### [facility] [address] [place] [address] Dr. Suzie Brooks Hematocrit (Bld) [Volume fraction] 46.6 % Normal 42.0-54.0 [facility] [place] [facility] Comment on above: Performed By: #### U DINA, LIPID, TSH, BNP, CMP, T7 #### [facility] [address] [address] [address] Suzie Brooks Hemoglobin (Bld) [Mass/Vol] 15.7 g/dL Normal 14.0-18.0 [facility] Comment on above: Performed By: #### U DINA, LIPID, TSH, BNP, CMP, T7 #### [facility] [address] [address] [address] Suzie Brooks IG # 0.05 10e3/ul Critically high 0.00-0.03 [facility] Comment on above: Performed By: #### U DINA, LIPID, TSH, BNP, CMP, T7 #### [facility] [address] [place] [address] Dr. Suzie Brooks IG % 0.4 % Normal 0.0-0.5 [facility] Comment on above: Performed By: #### U DINA, LIPID, TSH, BNP, CMP, T7 #### [facility] [address] [place] [address] Dr. Suzie Brooks LYMPH # 3.7 103/ul Normal 1.2-3.8 [facility] Comment on above: Performed By: #### U DINA, LIPID, TSH, BNP, CMP, T7 #### [facility] [address] [place] [address] Dr. Suzie Brooks Lymphocytes/100 WBC (Bld) 26.6 % Normal 20.5-60.0 [facility] Comment on above: Performed By: #### U DINA, LIPID, TSH, BNP, CMP, T7 #### [facility] [address] [address] [address] Suzie Brooks MANUAL DIFF REQ NO Normal [facility] Comment on above: Performed By: #### U DINA, LIPID, TSH, BNP, CMP, T7 #### [facility] [address] [place] [address] Dr. Suzie Brooks MCH (RBC) [Entitic mass] 29.2 pg Normal 25.9-34.0 [facility] [place] [facility] Comment on above: Performed By: #### U DINA, LIPID, TSH, BNP, CMP, T7 #### [facility] [address] [address] [address] Suzie Brooks [facility] (RBC) [Mass/Vol] 33.7 g/dL Normal 29.9-35.2 [facility] Comment on above: Performed By: #### U DINA, LIPID, TSH, BNP, CMP, T7 #### [facility] [address] [address] [address] Suzie Brooks MCV (RBC) [Entitic vol] 86.6 fL Normal 80.0-94.0 [facility] Comment on above: Performed By: #### U DINA, LIPID, TSH, BNP, CMP, T7 #### [facility] [address] [place] [address] Dr. Suzie Brooks MONO # 1.0 103/ul Critically high 0.3-0.8 [facility] Comment on above: Performed By: #### U DINA, LIPID, TSH, BNP, CMP, T7 #### [facility] [address] [place] [address] Dr. Suzie Brooks Monocytes/100 WBC (Bld) 7.2 % Normal 1.7-12.0 [facility] Comment on above: Performed By: #### U DINA, LIPID, TSH, BNP, CMP, T7 #### [facility] [address] [place] [address] Dr. Suzie Brooks NEUT # 8.7 103/ul Critically high 1.4-6.5 [facility] Comment on above: Performed By: #### U DINA, LIPID, TSH, BNP, CMP, T7 #### [facility] [address] [place] [address] Dr. Suzie Brooks Neutrophils/100 WBC (Bld) 62.9 % Normal 43.0-75.0 [facility] Comment on above: Performed By: #### U DINA, LIPID, TSH, BNP, CMP, T7 #### [facility] [address] [place] [address] Dr. Suzie Brooks Platelet mean volume (Bld) [Entitic vol] 9.4 fL Critically low 9.5-13.5 [facility] Comment on above: Performed By: #### U DINA, LIPID, TSH, BNP, CMP, T7 #### [facility] [address] [place], [place] [address] Dr. Suzie Brooks PLT 277 103/ul Normal 150-450 [facility] Comment on above: Performed By: #### U DINA, LIPID, TSH, BNP, CMP, T7 #### [facility] [address] [place], [place] [address] Dr. Suzie Brooks RBC 5.38 106/ul Normal 4.70-6.10 [facility] Comment on above: Performed By: #### U DINA, LIPID, TSH, BNP, CMP, T7 #### [facility] [address] [place], [place] [address] Dr. Suzie Brooks WBC 13.8 103/ul Critically high 4.0-11.0 [facility] Comment on above: Performed By: #### U DINA, LIPID, TSH, BNP, CMP, T7 #### [facility] [address] [place], [place] [address] ABD/PELVIS WO CONon [...] Reilly CAST Date: 2022-02-16 20:51 Normal [facility] ER URINE PROFILEon 2 Bilirubin Ql (U) Negative Normal NEGATIVE [facility] Comment on above: Performed By: #### U DINA, LIPID, TSH, BNP, CMP, T7 #### [facility] [address] [address] [address] Suzie Brooks Clarity (U) CLEAR Normal CLEAR [facility] Comment on above: Performed By: #### U DINA, LIPID, TSH, BNP, CMP, T7 #### [facility] [address] [address] [address] Suzie Brooks Color (U) YELLOW Normal YELLOW [facility] Comment on above: Performed By: #### U DINA, LIPID, TSH, BNP, CMP, T7 #### [facility] [address] [address] [address] Suzie Brooks ERUAHD A micrscopic examina tion will be performed if indicated. Normal [facility] Comment on above: Performed By: #### U DINA, LIPID, TSH, BNP, CMP, T7 #### [facility] [address] [address] [address] Suzie Brooks Glucose Ql (U) Negative Normal NEGATIVE [facility] Comment on above: Performed By: #### U DINA, LIPID, TSH, BNP, CMP, T7 #### [facility] [address] [address] [address] Suzie Brooks Hemoglobin Ql (U) MODERATE Abnormal NEGATIVE [facility] Comment on above: Performed By: #### U DINA, LIPID, TSH, BNP, CMP, T7 #### [facility] [address] [address] [address] Suzie Brooks Ketones Ql (U) Negative Normal NEGATIVE [facility] Comment on above: Performed By: #### U DINA, LIPID, TSH, BNP, CMP, T7 #### [facility] [address] [place] [address] Dr. Suzie Brooks LEUKOCYTES Negative Normal NEGATIVE [facility] [place] [facility] Comment on above: Performed By: #### U DINA, LIPID, TSH, BNP, CMP, T7 #### [facility] [address] [address] [address] Suzie Brooks Nitrite Ql (U) Negative Normal NEGATIVE [facility] Comment on above: Performed By: #### U DINA, LIPID, TSH, BNP, CMP, T7 #### [facility] [address] [address] [address] Suzie Brooks pH (U) 5.5 [pH] Normal 5-9 [facility] [place] [facility] Comment on above: Performed By: #### U DINA, LIPID, TSH, BNP, CMP, T7 #### [facility] [address] [address] [address] Suzie Brooks SPEC GRAVITY >=1.030 Abnormal 1.005-<=1.02 5 [facility] [place] [facility] Comment on above: Performed By: #### U DINA, LIPID, TSH, BNP, CMP, T7 #### [facility] [address] [place] [address] Dr. Suzie Brooks UA PROTEIN Negative Normal NEGATIVE/ TRACE [facility] [place] [facility] Comment on above: Performed By: #### U DINA, LIPID, TSH, BNP, CMP, T7 #### [facility] [address] [place] [address] Dr. Suzie Brooks UR MICRO IND INDICATED Normal [facility] [place] [facility] Comment on above: Performed By: #### U DINA, LIPID, TSH, BNP, CMP, T7 #### [facility] [address] [place] [address] Dr. Suzie Brooks Urobilinogen Qn (U) 0.2 {Behzad'U}/dL Normal 0.2 - 1. 0 [facility] [place] [facility] Comment on above: Performed By: #### U DINA, LIPID, TSH, BNP, CMP, T7 #### [facility] [address] [place] [address] Dr. Suzie Brooks PROF CHEM 8 (BAS METB)on Anion gap [Moles/Vol] 12.2 mmol/L Normal [facility] [place] [facility] Comment on above: Performed By: #### U DINA, LIPID, TSH, BNP, CMP, T7 #### [facility] [address] [place] [address] Dr. Suzie Brooks Calcium [Mass/Vol] 8.5 mg/dL Normal 8.5-10.1 [facility] Comment on above: Performed By: #### U DINA, LIPID, TSH, BNP, CMP, T7 #### [facility] [address] [place] [address] Dr. Suzie Brooks Chloride [Moles/Vol] 104 mmol/L Normal 98-107 [facility] [place] [facility] Comment on above: Performed By: #### U DNIA, LIPID, TSH, BNP, CMP, T7 #### [facility] [address] [address] [address] Suzie Brooks CO2 [Moles/Vol] 24.1 mmol/L Normal 21.0-32.0 [facility] Comment on above: Performed By: #### U DINA, LIPID, TSH, BNP, CMP, T7 #### [facility] [address] [place] [address] Dr. Suzie Brooks Creatinine [Mass/Vol] 1.14 mg/dL Normal 0.70-1.30 [facility] [place] [facility] Comment on above: Performed By: #### U DINA, LIPID, TSH, BNP, CMP, T7 #### [facility] [address] [address] [address] Suzie Brooks EGFR-AF ENGLISH >60 Normal >=60 [facility] Comment on above: Performed By: #### U DINA, LIPID, TSH, BNP, CMP, T7 #### [facility] [address] [address] [address] Suzie Brooks EGFR-NON AF ENGLISH >60 Normal >=60 [facility] [place] [facility] Comment on above: Performed By: #### U DINA, LIPID, TSH, BNP, CMP, T7 #### [facility] [address] [address] [address] Suzie Brooks Glucose [Mass/Vol] 114 mg/dL Critically high 74-106 T [facility] [place] Comment on above: Performed By: #### U DINA, LIPID, TSH, BNP, CMP, T7 #### [facility] [address] [address] [address] Suzie Brooks Potassium [Moles/Vol] 4.3 mmol/L Normal 3.5-5.1 [facility] [place] [facility] Comment on above: Performed By: #### U DINA, LIPID, TSH, BNP, CMP, T7 #### [facility] [address] [address] [address] Suzie Brooks Sodium [Moles/Vol] 136 mmol/L Normal 136-145 [facility] Comment on above: Performed By: #### U DINA, LIPID, TSH, BNP, CMP, T7 #### [facility] [address] [address] [address] Suzie Brooks Urea nitrogen [Mass/Vol] 14.0 mg/dL Normal 7.0-18.0 [facility] [place] [facility] Comment on above: Performed By: #### U DINA, LIPID, TSH, BNP, CMP, T7 #### [facility] [address] [address] [address] Suzie Brooks Urea nitrogen/Creatinine [Mass ratio] 12.3 mg/mg Normal [facility] [place] [facility] Comment on above: Performed By: #### U DINA, LIPID, TSH, BNP, CMP, T7 #### [facility] [address] [address] [address] Suzie Brooks URINE MICROSCOPIC ONLYon BACTERIA NONE SEEN Normal NONE SEEN [facility] Comment on above: Performed By: #### U DINA, LIPID, TSH, BNP, CMP, T7 #### [facility] [address] [address] [address] Suzie Brooks Bacteria identified Cx Nom (U) NOT INDICATED Normal [facility] Comment on above: Performed By: #### U DINA, LIPID, TSH, BNP, CMP, T7 #### [facility] [address] [place] [address] Dr. Suzie Brooks CAST NONE SEEN Normal NONE SEEN [facility] Comment on above: Performed By: #### U DINA, LIPID, TSH, BNP, CMP, T7 #### [facility] [address] [place] [address] Dr. Suzie Brooks Crystals LM Nom (Urine sed) NONE SEEN Normal NONE SEEN [facility] Comment on above: Performed By: #### U DINA, LIPID, TSH, BNP, CMP, T7 #### [facility] [address] [place] [address] Dr. Suzie Brooks Epithelial cells LM Ql (Urine sed) RARE Normal NONE SEEN /RARE [facility] Comment on above: Performed By: #### U DINA, LIPID, TSH, BNP, CMP, T7 #### [facility] [address] [place] [address] Dr. Suzie Brooks MUCOUS NONE SEEN Normal NONE SEEN [facility] Comment on above: Performed By: #### U DINA, LIPID, TSH, BNP, CMP, T7 #### [facility] [address] [place] [address] Dr. Suzie Brooks RBC 5-10 Abnormal 0-2 [facility] Comment on above: Performed By: #### U DINA, LIPID, TSH, BNP, CMP, T7 #### [facility] [address] [place] [address] Dr. Suzie Brooks WBC NONE SEEN Normal NONE SEEN [facility] Comment on above: Performed By: #### U DINA, LIPID, TSH, BNP, CMP, T7 #### [facility] [address] [address] [address] Suzie Brooks CITRATE URINE 24HRon 022 Citric Acid, U, 24hr 1312 mg/24 hr Critically high 320-124 0 [facility] [place] [facility] Comment on above: Result Comment: This test was developed and its performance characteristics determined by [facility]. It has not been cleared or approved by the Food and Drug Administration. Performed By: #### U DINA, LIPID, TSH, BNP, CMP, T7 #### [facility] [address] [address] [address] Suzie Brooks Citric Acid, Urine 610 mg/L Normal Undefined [facility] Comment on above: Performed By: #### U DINA, LIPID, TSH, BNP, CMP, T7 #### [facility] [address] [place] [address] Dr. Suzie Brooks OXALATE 24HR URINEon 022 Oxalates, Urine 11 mg/L Normal Undefined [facility] Comment on above: Performed By: #### O [id number] #### [facility] [address] [place] [address] Dr. Suzie Brooks Oxalates, Urine 24hr 24 mg/24 hr Normal 7-44 [facility] [place] [facility] Comment on above: Performed By: #### O [id number] #### [facility] [address] [place] [address] Dr. Suzie Brooks MAGNESIUM 24HR URINEon 02-02 Magnesium 24hr Urine 77.4 mg/24 hr Normal 12.0-293.0 [facility] Comment on above: Performed By: #### M AG24 #### [facility] [address] [place] [address] Dr. Suzie Brooks Magnesium UR 3.6 mg/dL Normal Not Estab. [facility] [place] [facility] Comment on above: Performed By: #### M AG24 #### [facility] [address] [place] [address] Dr. Suzie Brooks PHOSPHORUS 24HR URINEon 01-10 Phosphorus, Urine 44.1 mg/dL Normal Not Estab. [facility] Comment on above: Performed By: #### U DINA, LIPID, TSH, BNP, CMP, T7 #### [facility] [address] [address] [address] Suzie Brooks Phosphorus, Urine 24hr 948 mg/24 hr Normal 390-1425 [facility] [place] [facility] Comment on above: Performed By: #### U DINA, LIPID, TSH, BNP, CMP, T7 #### [facility] [address] [address] [address] Suzie Brooks URIC ACID 24 HR URINEon 01-10 Uric Acid, Urine 35.4 mg/dL Normal Not Estab. [facility] Comment on above: Performed By: #### U DINA, LIPID, TSH, BNP, CMP, T7 #### [facility] [address] [address] [address] Suzie Brooks Uric Acid, Urine 24hr 761.1 mg/24 hr Normal 182.4-936.8 [facility] [place] [facility] Comment on above: Performed By: #### U DINA, LIPID, TSH, BNP, CMP, T7 #### [facility] [address] [address] [address] Suzie Brooks CALCIUM 24 HR URINEon 2021 CALC, 24 HR UR 187.0 mg/24 hr Normal 100.0-300.0 [facility] Comment on above: Performed By: #### U DINA, LIPID, TSH, BNP, CMP, T7 #### [facility] [address] [address] [address] Suzie Brooks UR CALCIUM 8.7 mg/dL Normal 5.1-21.0 [facility] [place] [facility] Comment on above: Performed By: #### U DINA, LIPID, TSH, BNP, CMP, T7 #### [facility] [address] [address] [address] Suzie Brooks UR TOT VOL 2150 ml/24 HR Normal [facility] Comment on above: Performed By: #### U DINA, LIPID, TSH, BNP, CMP, T7 #### [facility] [address] [address] [address] Suzie Brooks CREA 24 HR URINEon 2 CREA, 24 HR UR 1983.59 mg/24 hr Normal 1,000.00- 2,0 00.00 [facility] [place] [facility] Comment on above: Performed By: #### U DINA, LIPID, TSH, BNP, CMP, T7 #### [facility] [address] [place] [address] Dr. Suzie Brooks URINE CREAT 92.26 mg/dL Normal 20.00-300.00 [facility] Comment on above: Performed By: #### U DINA, LIPID, TSH, BNP, CMP, T7 #### [facility] [address] [place] [address] Dr. Suzie Brooks SODIUM 24 HR URINEon 022 NA, 24 HR UR 172 mmol/24 hr Normal 40-220 [facility] Comment on above: Performed By: #### U DINA, LIPID, TSH, BNP, CMP, T7 #### [facility] [address] [place] [address] Dr. Suzie Brooks Sodium (U) [Moles/Vol] 80 mmol/L Normal 30-90 [facility] Comment on above: Performed By: #### U DINA, LIPID, TSH, BNP, CMP, T7 #### [facility] [address] [place] [address] Dr. Suzie Brooks PTH INTACTon 01-31-2022 PTH, Intact 24 pg/mL Normal 15-65 [facility] Comment on above: Performed By: #### U DINA, LIPID, TSH, BNP, CMP, T7 #### [facility] [address] [place] [address] Dr. Suzie Brooks BUNon 01-30-2022 Urea nitrogen [Mass/Vol] 12.0 mg/dL Normal 7.0-18.0 [facility] Comment on above: Performed By: #### U DINA, LIPID, TSH, BNP, CMP, T7 #### [facility] [address] [place] [address] Dr. Suzie Brooks CALCIUMon 01-30-2022 Calcium [Mass/Vol] 8.6 mg/dL Normal 8.5-10.1 [facility] Comment on above: Performed By: #### U DINA, LIPID, TSH, BNP, CMP, T7 #### [facility] [address] [address] [address] Suzie Brooks CHLORIDEon 01-30-2022 Chloride [Moles/Vol] 104 mmol/L Normal 98-107 [facility] Comment on above: Performed By: #### U DINA, LIPID, TSH, BNP, CMP, T7 #### [facility] [address] [address] [address] Suzie Brooks CO2on 01-30-2022 CO2 [Moles/Vol] 29.3 mmol/L Normal 21.0-32.0 [facility] Comment on above: Performed By: #### U DINA, LIPID, TSH, BNP, CMP, T7 #### [facility] [address] [place] [address] Dr. Suzie Brooks CREATININEon 01-30-2022 Creatinine [Mass/Vol] 0.92 mg/dL Normal 0.70-1.30 [facility] [place] [facility] Comment on above: Performed By: #### U DINA, LIPID, TSH, BNP, CMP, T7 #### [facility] [address] [address] [address] Suzie Brooks EGFR-AF ENGLISH >60 Normal >=60 [facility] Comment on above: Performed By: #### U DINA, LIPID, TSH, BNP, CMP, T7 #### [facility] [address] [address] [address] Suzie Brooks EGFR-NON AF ENGLISH >60 Normal >=60 [facility] Comment on above: Performed By: #### U DINA, LIPID, TSH, BNP, CMP, T7 #### [facility] [address] [address] [address] Suzie Brooks NAon 01-30-2022 Sodium [Moles/Vol] 140 mmol/L Normal 136-145 [facility] Comment on above: Performed By: #### U DINA, LIPID, TSH, BNP, CMP, T7 #### [facility] [address] [place] [address] Dr. Suzie Brooks POTASSIUMon 01-30-2022 Potassium [Moles/Vol] 4.0 mmol/L Normal 3.5-5.1 [facility] [place] [facility] Comment on above: Performed By: #### U DINA, LIPID, TSH, BNP, CMP, T7 #### [facility] [address] [place], [place] [address] Dr. Suzie Brooks URIC ACID SERUMon 01-30-2022 Urate [Mass/Vol] 5.2 mg/dL Normal 3.5-7.2 [facility] Comment on above: Performed By: #### U DINA, LIPID, TSH, BNP, CMP, T7 #### [facility] [address] [place], [place] [address] Dr. Suzie Brooks US KIDNEYSon 12-18-2021 US [...] BEHZAD CARRASQUILLO Date: 2021-12-18 09:51 Normal [facility] XR KUB 1 VIEWon 11-21-2021 XR KUB [...] by: BEHZAD CARRASQUILLO Date: 2021-11-21 09:45 Normal [facility] [place] [facility] XR KUBon 11-15-[address] [facility] [place] [address] [place] [address] XRay Report Signed Patient: Rizwan Aparicio MR#: [id number] 4 : 1950 Acct:[id number] Age/Sex: 71 / M ADM Date: 11/15/21 Loc: [place] Room: Type: [facility] Attending Dr: Micki Zeng MD Ordering Provider: [...] Hancock Jr., M.D.11/15/2021 10:43 AM Dictation Location: [place] [address] Transcribed By: [facility] 11/15/21 1043 Dictated By: Yared Hancock Jr, MD 11/15/21 1039 Signed By: 11/15/21 1043 Normal [facility] [place] SARS-CoV-2 (COVID-19) RNA SUKHJINDER+probe Ql (Unsp spec) Negative Normal Negative [facility] Comment on above: Order Comment: Healt hcare Worker?: N Result Comment: Testing for SARS-CoV-2 by RT-PCR This test was developed and its performance characteristics determined by [employer] ([employer]) and validated at the [facility]. This test has not been FDA [...] is terminated or revoked sooner. PERFORMED BY: [place] [address] PATHOLOGIST LIP CUTTER AND SCORER JIA MINAYA M.D. Performed By: #### C OVID 19 [facility] [place] #### [address] COVID-19 Positive/NegativeOr dered By: Micki Zeng on 11-13-2021 SARS-CoV-2 (COVID-19) N gene SUKHJINDER+probe Ql (Resp) Negative Negative [facility] Comment on above: Testing for SARS-CoV -2 by RT-PCRThis test was developed and its performance characteristics determined by [employer]) and validated at the [facility]. This test has not been FDA [...] sooner. CALCULI, URINARYon 2 2,8 Dihydroxyadenine Normal [facility] [place] [facility] Comment on above: Performed By: #### U DINA, LIPID, TSH, BNP, CMP, T7 #### [facility] [address] [address] [address] Suzie Brooks Ammonium Acid Urate Normal [facility] Comment on above: Performed By: #### U DINA, LIPID, TSH, BNP, CMP, T7 #### [facility] [address] [address] [address] Suzie Brooks Bilirubin Ql (U) [facility] Comment on above: Performed By: #### U DINA, LIPID, TSH, BNP, CMP, T7 #### [facility] [address] [address] [address] Suzie Brooks Ca Oxalate Dihydrate Normal [facility] [place] [facility] Comment on above: Performed By: #### U DINA, LIPID, TSH, BNP, CMP, T7 #### [facility] [address] [place] [address] [address] Suzie Brooks CaHPO4 (Brushite) [facility] Comment on above: Performed By: #### U DINA, LIPID, TSH, BNP, CMP, T7 #### [facility] [address] [place] [address] [address] Suzie Brooks Calcium Bilirubinate Normal [facility] [place] [facility] Comment on above: Performed By: #### U DINA, LIPID, TSH, BNP, CMP, T7 #### [facility] [address] [place] [address] [address] Suzie Brooks Calcium Carbonate Normal [facility] Comment on above: Performed By: #### U DINA, LIPID, TSH, BNP, CMP, T7 #### [facility] [address] [place] [address] [address] Suzie Brooks Calcium Oxalate Monohydrate 70 % Normal [facility] [place] [facility] Comment on above: Performed By: #### U DINA, LIPID, TSH, BNP, CMP, T7 #### [facility] [address] [place] [address] [address] Suzie Brooks Calcium Palmitate Normal [facility] Comment on above: Performed By: #### U DINA, LIPID, TSH, BNP, CMP, T7 #### [facility] [address] [address] [address] Suzie Brooks Calcium Phosphate Normal [facility] Comment on above: Performed By: #### U DINA, LIPID, TSH, BNP, CMP, T7 #### [facility] [address] [place] [address] [address] Suzie Brooks Calcium Stearate Normal [facility] Comment on above: Performed By: #### U DINA, LIPID, TSH, BNP, CMP, T7 #### [facility] [address] [place] [address] [address] Suzie Brooks Carbonate Apatite Normal [facility] Comment on above: Performed By: #### U DINA, LIPID, TSH, BNP, CMP, T7 #### [facility] [address] [address] [address] Suzie Brooks Cellular Material Normal [facility] Comment on above: Performed By: #### U DINA, LIPID, TSH, BNP, CMP, T7 #### [facility] [address] [place] [address] [address] Suzie Brooks Cholesterol [facility] Comment on above: Performed By: #### U DINA, LIPID, TSH, BNP, CMP, T7 #### [facility] [address] [place] [address] [address] Suzie Brooks Color (U) Brown Normal [facility] Comment on above: Performed By: #### U DINA, LIPID, TSH, BNP, CMP, T7 #### [facility] [address] [address] [address] Suzie Brooks Comment [facility] Comment on above: Performed By: #### U DINA, LIPID, TSH, BNP, CMP, T7 #### [facility] [address] [address] [address] Suzie Brooks Comment: Comment Normal [facility] Comment on above: Result Comment: Fantasma baez questions regarding Calculi Analysis contact [facility] at: [phone]. Performed By: #### U DINA, LIPID, TSH, BNP, CMP, T7 #### [facility] [address] [address] [address] Suzie Brooks Composition Comment [facility] Comment on above: Result Comment: Perc entage (Represents the % composition) Performed By: #### U DINA, LIPID, TSH, BNP, CMP, T7 #### [facility] [address] [address] [address] Suzie Brooks Cystine [facility] Comment on above: Performed By: #### U DINA, LIPID, TSH, BNP, CMP, T7 #### [facility] [address] [place] [address] Dr. Suzie Brooks Disclaimer: Comment Normal [facility] [place] [facility] Comment on above: Result Comment: This test was developed and its performance characteristics determined by [facility]. It has not been cleared or approved by the Food and Drug Administration. Performed By: #### U DINA, LIPID, TSH, BNP, CMP, T7 #### [facility] [address] [place] [address] Dr. Suzie Brooks Dried Blood Normal [facility] [place] [facility] Comment on above: Performed By: #### U DINA, LIPID, TSH, BNP, CMP, T7 #### [facility] [address] [place] [address] Dr. Suzie Brooks Drug or Metabolite Normal [facility] Comment on above: Performed By: #### U DINA, LIPID, TSH, BNP, CMP, T7 #### [facility] [address] [place] [address] [address] Suzie Brooks Hydroxyapatite Normal [facility] Comment on above: Performed By: #### U DINA, LIPID, TSH, BNP, CMP, T7 #### [facility] [address] [place] [address] Dr. Suzie Brooks Mg NH4 PO4 (Struvite) [facility] Comment on above: Performed By: #### U DINA, LIPID, TSH, BNP, CMP, T7 #### [facility] [address] [place] [address] Dr. Suzie Brooks MgHPO4 (Newberyite) Normal [facility] Comment on above: Performed By: #### U DINA, LIPID, TSH, BNP, CMP, T7 #### [facility] [address] [address] [address] Suzie Brooks Other component(s) Normal [facility] Comment on above: Performed By: #### U DINA, LIPID, TSH, BNP, CMP, T7 #### [facility] [address] [address] [address] Suzie Brooks PDF . Normal [facility] [place] [facility] Comment on above: Performed By: #### U DINA, LIPID, TSH, BNP, CMP, T7 #### [facility] [address] [address] [address] Suzie Brooks Photo Comment [facility] Comment on above: Result Comment: Phot ograph will follow under a separate cover Performed By: #### U DINA, LIPID, TSH, BNP, CMP, T7 #### [facility] [address] [address] [address] Suzie Brooks Please note: Comment Normal [facility] [place] [facility] Comment on above: Result Comment: Calc shamika report will follow via computer, mail or skin pass operator delivery. Performed By: #### U DINA, LIPID, TSH, BNP, CMP, T7 #### [facility] [address] [address] [address] Suzie Brooks Size 3x2 [facility] Comment on above: Result Comment: Mult iple pieces received. Dimensions of the largest piece reported. Performed By: #### U DINA, LIPID, TSH, BNP, CMP, T7 #### [facility] [address] [address] [address] Suzie Brooks Sodium Acid Urate Normal [facility] Comment on above: Performed By: #### U DINA, LIPID, TSH, BNP, CMP, T7 #### [facility] [address] [address] [address] Suzie Brooks Source Comment [facility] Comment on above: Result Comment: Jessica Reese Performed By: #### U DINA, LIPID, TSH, BNP, CMP, T7 #### [facility] [address] [address] [address] Suzie Brooks Triamterene Normal [facility] [place] [facility] Comment on above: Performed By: #### U DINA, LIPID, TSH, BNP, CMP, T7 #### [facility] [address] [place] [address] [address] Suzie Brooks Uric Acid 30 % Normal [facility] [place] [facility] Comment on above: Performed By: #### U DINA, LIPID, TSH, BNP, CMP, T7 #### [facility] [address] [address] [address] Suzie Brooks Uric Acid Dihydrate Normal [facility] Comment on above: Performed By: #### U DINA, LIPID, TSH, BNP, CMP, T7 #### [facility] [address] [address] [address] Suzie Brooks Weight 12 mg Normal [facility] [place] [facility] Comment on above: Performed By: #### U DINA, LIPID, TSH, BNP, CMP, T7 #### [facility] [address] [place] [address] [address] Suzie Brooks Xanthine Normal [facility] [place] [facility] Comment on above: Performed By: #### U DINA, LIPID, TSH, BNP, CMP, T7 #### [facility] [address] [place] [address] [address] Suzie Brooks XR KUB 1 VIEWon [...] by: RAFAEL GRAVES Date: 2021-11-12 13:18 Normal [facility] [place] [facility] XR CHEST 2 Von 11-08-2021 XR [...] CARLOS GROSS Date: 2021-11-08 15:50 Normal [facility] CBC AUTO DIFFon 11-07-2021 BASO # 0.0 103/ul Normal 0.0-0.1 [facility] Comment on above: Performed By: #### U DINA, LIPID, TSH, BNP, CMP, T7 #### [facility] [address] [place] [address] Dr. Suzie Brooks Basophils/100 WBC (Bld) 0.2 % Normal 0.2-2.0 [facility] [place] [facility] Comment on above: Performed By: #### U DINA, LIPID, TSH, BNP, CMP, T7 #### [facility] [address] [address] [address] Suzie Brooks EO # 0.0 103/ul Normal 0.0-0.7 [facility] Comment on above: Performed By: #### U DINA, LIPID, TSH, BNP, CMP, T7 #### [facility] [address] [place] [address] Dr. Suzie Brooks Eosinophils/100 WBC (Bld) 0.0 % Critically low 0.9-7.0 [facility] Comment on above: Performed By: #### U DINA, LIPID, TSH, BNP, CMP, T7 #### [facility] [address] [address] [address] Suzie Brooks Erythrocyte distribution width (RBC) [Ratio] 14.0 % Normal 11.0-15.0 [facility] Comment on above: Performed By: #### U DINA, LIPID, TSH, BNP, CMP, T7 #### [facility] [address] [place] [address] Dr. Suzie Brooks Hematocrit (Bld) [Volume fraction] 41.8 % Critically low 42.0-54.0 [facility] [place] [facility] Comment on above: Performed By: #### U DINA, LIPID, TSH, BNP, CMP, T7 #### [facility] [address] [address] [address] Suzie Brooks Hemoglobin (Bld) [Mass/Vol] 13.7 g/dL Critically low 14.0-18.0 [facility] Comment on above: Performed By: #### U DINA, LIPID, TSH, BNP, CMP, T7 #### [facility] [address] [address] [address] Suzie Brooks IG # 0.14 10e3/ul Critically high 0.00-0.03 [facility] Comment on above: Performed By: #### U DINA, LIPID, TSH, BNP, CMP, T7 #### [facility] [address] [address] [address] Suzie Brooks IG % 0.9 % Critically high 0.0-0.5 [facility] Comment on above: Performed By: #### U DINA, LIPID, TSH, BNP, CMP, T7 #### [facility] [address] [address] [address] Suzie Brooks LYMPH # 1.6 103/ul Normal 1.2-3.8 [facility] [place] [facility] Comment on above: Performed By: #### U DINA, LIPID, TSH, BNP, CMP, T7 #### [facility] [address] [address] [address] Suzie Brooks Lymphocytes/100 WBC (Bld) 10.2 % Critically low 20.5-60.0 [facility] [place] [facility] Comment on above: Performed By: #### U DINA, LIPID, TSH, BNP, CMP, T7 #### [facility] [address] [place] [address] [address] Suzie Brooks MANUAL DIFF REQ NO Normal [facility] Comment on above: Performed By: #### U DINA, LIPID, TSH, BNP, CMP, T7 #### [facility] [address] [address] [address] Suzie Brooks MCH (RBC) [Entitic mass] 28.8 pg Normal 25.9-34.0 [facility] Comment on above: Performed By: #### U DINA, LIPID, TSH, BNP, CMP, T7 #### [facility] [address] [place] [address] Dr. Suzie Brooks MCHC (RBC) [Mass/Vol] 32.8 g/dL Normal 29.9-35.2 [facility] Comment on above: Performed By: #### U DINA, LIPID, TSH, BNP, CMP, T7 #### [facility] [address] [address] [address] Suzie Brooks MCV (RBC) [Entitic vol] 87.8 fL Normal 80.0-94.0 [facility] Comment on above: Performed By: #### U DINA, LIPID, TSH, BNP, CMP, T7 #### [facility] [address] [place] [address] Dr. Suzie Brooks MONO # 1.0 103/ul Critically high 0.3-0.8 [facility] Comment on above: Performed By: #### U DINA, LIPID, TSH, BNP, CMP, T7 #### [facility] [address] [place] [address] Dr. Suzie Brooks Monocytes/100 WBC (Bld) 6.6 % Normal 1.7-12.0 [facility] Comment on above: Performed By: #### U DINA, LIPID, TSH, BNP, CMP, T7 #### [facility] [address] [place] [address] Dr. Suzie Brooks NEUT # 13.0 103/ul Critically high 1.4-6.5 [facility] Comment on above: Performed By: #### U DINA, LIPID, TSH, BNP, CMP, T7 #### [facility] [address] [place] [address] Dr. Suzie Brooks Neutrophils/100 WBC (Bld) 82.1 % Critically high 43.0-75.0 [facility] Comment on above: Performed By: #### U DINA, LIPID, TSH, BNP, CMP, T7 #### [facility] [address] [place] [address] Dr. Suzie Brooks Platelet mean volume (Bld) [Entitic vol] 9.3 fL Critically low 9.5-13.5 [facility] [place] [facility] Comment on above: Performed By: #### U DINA, LIPID, TSH, BNP, CMP, T7 #### [facility] [address] [place] [address] Dr. Suzie Brooks PLT 301 103/ul Normal 150-450 [facility] [place] [facility] Comment on above: Performed By: #### U DINA, LIPID, TSH, BNP, CMP, T7 #### [facility] [address] [place] [address] Dr. Suzie Brooks RBC 4.76 106/ul Normal 4.70-6.10 [facility] [place] [facility] Comment on above: Performed By: #### U DINA, LIPID, TSH, BNP, CMP, T7 #### [facility] [address] [place] [address] Dr. Suzie Brooks WBC 15.9 103/ul Critically high 4.0-11.0 [facility] Comment on above: Performed By: #### U DINA, LIPID, TSH, BNP, CMP, T7 #### [facility] [address] [place] [address] Dr. Suzie Brooks POINT OF CARE GLUCOSEon 10-11 Glucose [Mass/Vol] 128 mg/dL Critically high 74-106 [facility] Comment on above: Performed By: #### U DINA, LIPID, TSH, BNP, CMP, T7 #### [facility] [address] [place] [address] Dr. Suzie Brooks PROF 14(COMP METB)on 022 Albumin [Mass/Vol] 3.1 g/dL Critically low 3.4-5.0 [facility] Comment on above: Performed By: #### M AG24 #### [facility] [address] [place] [address] Dr. Suzie Brooks Albumin/Globulin [Mass ratio] 0.9 {ratio} Normal [facility] [place] [facility] Comment on above: Performed By: #### M AG24 #### [facility] [address] [place] [address] Dr. Suzie Brooks ALP [Catalytic activity/Vol] 52 U/L Normal 46-116 [facility] [place] [facility] Comment on above: Performed By: #### M AG24 #### [facility] [address] [place] [address] Dr. Suzie Brooks ALT [Catalytic activity/Vol] 39 U/L Normal 16-63 [facility] [place] [facility] Comment on above: Performed By: #### M AG24 #### [facility] [address] [address] [address] Suzie Brooks Anion gap [Moles/Vol] 14.7 mmol/L Normal [facility] [place] [facility] Comment on above: Performed By: #### M AG24 #### [facility] [address] [place] [address] Dr. Suzie Brooks AST [Catalytic activity/Vol] 27 U/L Normal 15-37 [facility] [place] [facility] Comment on above: Performed By: #### M AG24 #### [facility] [address] [place] [address] Dr. Suzie Brooks Bilirubin [Mass/Vol] 0.4 mg/dL Normal 0.2-1.3 [facility] [place] [facility] Comment on above: Performed By: #### M AG24 #### [facility] [address] [place] [address] Dr. Suzie Brooks Calcium [Mass/Vol] 7.7 mg/dL Critically low 8.5-10.[address] [facility] Comment on above: Performed By: #### M AG24 #### [facility] [address] [place] [address] Dr. Suzie Brooks Chloride [Moles/Vol] 104 mmol/L Normal 98-107 [facility] [place] [facility] Comment on above: Performed By: #### M AG24 #### [facility] [address] [address] [address] Suzie Brooks CO2 [Moles/Vol] 23.4 mmol/L Normal 22.0-30.0 [facility] Comment on above: Performed By: #### M AG24 #### [facility] [address] [place] [address] Dr. Suzie Brooks Creatinine [Mass/Vol] 1.03 mg/dL Normal 0.66-1.25 [facility] [place] [facility] Comment on above: Performed By: #### M AG24 #### [facility] [address] [address] [address] Suzie Brooks EGFR-AF ENGLISH >60 Normal >=60 [facility] Comment on above: Performed By: #### M AG24 #### [facility] [address] [address] [address] Suzie Brooks EGFR-NON AF ENGLISH >60 Normal >=60 [facility] [place] [facility] Comment on above: Performed By: #### M AG24 #### [facility] [address] [address] [address] Suzie Brooks Globulin (S) [Mass/Vol] 3.5 g/dL Normal [facility] [place] [facility] Comment on above: Performed By: #### M AG24 #### [facility] [address] [place] [address] Dr. Suzie Brooks Glucose [Mass/Vol] 142 mg/dL Critically high 74-106 [facility] Comment on above: Performed By: #### M AG24 #### [facility] [address] [address] [address] Suzie Brooks Potassium [Moles/Vol] 4.1 mmol/L Normal 3.4-5.0 [facility] [place] [facility] Comment on above: Performed By: #### M AG24 #### [facility] [address] [place] [address] Dr. Suzie Brooks Protein [Mass/Vol] 6.6 g/dL Normal 6.1-8.2 [facility] Comment on above: Performed By: #### M AG24 #### [facility] [address] [place] [address] Dr. Suzie Brooks Sodium [Moles/Vol] 138 mmol/L Normal 137-145 [facility] Comment on above: Performed By: #### M AG24 #### [facility] [address] [place] [address] Dr. Suzie Brooks Urea nitrogen [Mass/Vol] 15.0 mg/dL Normal 7.0-18.0 [facility] [place] [facility] Comment on above: Performed By: #### M AG24 #### [facility] [address] [place] [address] Dr. Suzie Brooks Urea nitrogen/Creatinine [Mass ratio] 14.6 mg/mg Normal [facility] Comment on above: Performed By: #### M AG24 #### [facility] [address] [place] [address] Dr. Suzie Brooks CBC AUTO DIFFon 11-06-2021 BASO # 0.1 103/ul Normal 0.0-0.1 [facility] Comment on above: Performed By: #### U DINA, LIPID, TSH, BNP, CMP, T7 #### [facility] [address] [place] [address] Dr. Suzie Brooks Basophils/100 WBC (Bld) 0.5 % Normal 0.2-2.0 [facility] [place] [facility] Comment on above: Performed By: #### U DINA, LIPID, TSH, BNP, CMP, T7 #### [facility] [address] [place] [address] Dr. Suzie Brooks EO # 0.3 103/ul Normal 0.0-0.7 [facility] Comment on above: Performed By: #### U DINA, LIPID, TSH, BNP, CMP, T7 #### [facility] [address] [place] [address] Dr. Suzie Brooks Eosinophils/100 WBC (Bld) 2.1 % Normal 0.9-7.0 [facility] Comment on above: Performed By: #### U DINA, LIPID, TSH, BNP, CMP, T7 #### [facility] [address] [place] [address] Dr. Suzie Brooks Erythrocyte distribution width (RBC) [Ratio] 13.8 % Normal 11.0-15.0 [facility] Comment on above: Performed By: #### U DINA, LIPID, TSH, BNP, CMP, T7 #### [facility] [address] [place] [address] Dr. Suzie Brooks Hematocrit (Bld) [Volume fraction] 46.9 % Normal 42.0-54.0 [facility] System Comment on above: Performed By: #### U DINA, LIPID, TSH, BNP, CMP, T7 #### [facility] [address] [place] [address] Dr. Suzie Brooks Hemoglobin (Bld) [Mass/Vol] 15.4 g/dL Normal 14.0-18.0 [facility] [place] [facility] Comment on above: Performed By: #### U DINA, LIPID, TSH, BNP, CMP, T7 #### [facility] [address] [place] [address] Dr. Suzie Brooks IG # 0.05 10e3/ul Critically high 0.00-0.03 [facility] Comment on above: Performed By: #### U DINA, LIPID, TSH, BNP, CMP, T7 #### [facility] [address] [place] [address] Dr. Suzie Brooks IG % 0.4 % Normal 0.0-0.5 [facility] [place] [facility] Comment on above: Performed By: #### U DINA, LIPID, TSH, BNP, CMP, T7 #### [facility] [address] [place] [address] Dr. Suzie Brooks LYMPH # 2.8 103/ul Normal 1.2-3.8 [facility] Comment on above: Performed By: #### U DINA, LIPID, TSH, BNP, CMP, T7 #### [facility] [address] [place] [address] Dr. Suzie Brooks Lymphocytes/100 WBC (Bld) 22.5 % Normal 20.5-60.0 [facility] [place] [facility] Comment on above: Performed By: #### U DNIA, LIPID, TSH, BNP, CMP, T7 #### [facility] [address] [place] [address] Dr. Suzie Brooks MANUAL DIFF REQ NO Normal [facility] Comment on above: Performed By: #### U DINA, LIPID, TSH, BNP, CMP, T7 #### [facility] [address] [place] [address] Dr. Suzie Brooks MCH (RBC) [Entitic mass] 28.6 pg Normal 25.9-34.0 [facility] [place] [facility] Comment on above: Performed By: #### U DINA, LIPID, TSH, BNP, CMP, T7 #### [facility] [address] [place] [address] Dr. Suzie Brooks MCHC (RBC) [Mass/Vol] 32.8 g/dL Normal 29.9-35.2 [facility] Comment on above: Performed By: #### U DINA, LIPID, TSH, BNP, CMP, T7 #### [facility] [address] [place] [address] Dr. Suzie Brooks MCV (RBC) [Entitic vol] 87.0 fL Normal 80.0-94.0 [facility] Comment on above: Performed By: #### U DINA, LIPID, TSH, BNP, CMP, T7 #### [facility] [address] [place] [address] Dr. Suzie Brooks MONO # 0.9 103/ul Critically high 0.3-0.8 [facility] Comment on above: Performed By: #### U DINA, LIPID, TSH, BNP, CMP, T7 #### [facility] [address] [place] [address] Dr. Suzie Brooks Monocytes/100 WBC (Bld) 6.9 % Normal 1.7-12.0 [facility] Comment on above: Performed By: #### U DINA, LIPID, TSH, BNP, CMP, T7 #### [facility] [address] [place] [address] Dr. Suzie Brooks NEUT # 8.4 103/ul Critically high 1.4-6.5 [facility] Comment on above: Performed By: #### U DINA, LIPID, TSH, BNP, CMP, T7 #### [facility] [address] [place] [address] Dr. Suzie Brooks Neutrophils/100 WBC (Bld) 67.6 % Normal 43.0-75.0 [facility] Comment on above: Performed By: #### U DINA, LIPID, TSH, BNP, CMP, T7 #### [facility] [address] [place] [address] Dr. Suzie Brooks Platelet mean volume (Bld) [Entitic vol] 9.6 fL Normal 9.5-13.5 [facility] Comment on above: Performed By: #### U DINA, LIPID, TSH, BNP, CMP, T7 #### [facility] [address] [place] [address] Dr. Suzie Brooks PLT 284 103/ul Normal 150-450 [facility] Comment on above: Performed By: #### U DINA, LIPID, TSH, BNP, CMP, T7 #### [facility] [address] [place] [address] Dr. Suzie Brooks RBC 5.39 106/ul Normal 4.70-6.10 [facility] Comment on above: Performed By: #### U DINA, LIPID, TSH, BNP, CMP, T7 #### [facility] [address] [place] [address] Dr. Suzie Brooks WBC 12.5 103/ul Critically high 4.0-11.0 [facility] Comment on above: Performed By: #### U DINA, LIPID, TSH, BNP, CMP, T7 #### [facility] [address] [place] [address] Dr. Suzie Brooks CULTURE BLOODon 11-06-2021 Microscopic examination of blood, culture Culture Observations: NO GROWTH AT 5 DAYS. Normal [facility] Comment on above: Performed By: #### M AG24 #### [facility] [address] [place] [address] Dr. Suzie Brooks CULTURE URINEon 11-06-2021 CULTURE URINE Culture Observations : NO GROWTH. Normal [facility] Comment on above: Performed By: #### M AG24 #### [facility] [address] [place] [address] Dr. Suzie Brooks Covid-19 PCR (CVDTB)on 10-10 SARS-CoV-2 (COVID-19) RNA SUKHJINDER+probe Ql (Unsp spec) Not detected Normal NOT DETECTED [facility] Comment on above: Result Comment: When diagnostic testing is negative, the possibility of a false negative should be considered in the context of a patient's recent exposures and the presence of clinical signs and symptoms consistent with SARS-CoV-2. This test is not yet approved or cleared by the [place] Food and Drug Administration (FDA). This test was developed by [employer], [place], [place]. The performance characteristics of this test were validated by [facility]. The results are not intended to be used as the sole means for clinical diagnosis or patient management decisions. [facility] is authorized under Clinical Laboratory Improvement Amendments [...] for this test is supported by the Furn[employer]ender of Health and Human Service's declaration that [...] DINA, LIPID, TSH, BNP, CMP, T7 #### [facility] [address] [place] [address] Dr. Suzie Brooks ER URINE PROFILEon 2 Bilirubin Ql (U) Negative Normal NEGATIVE [facility] Comment on above: Performed By: #### U DINA, LIPID, TSH, BNP, CMP, T7 #### [facility] [address] [place] [address] Dr. Suzie Brooks Clarity (U) CLEAR Normal CLEAR [facility] [place] [facility] Comment on above: Performed By: #### U DINA, LIPID, TSH, BNP, CMP, T7 #### [facility] [address] [place] [address] Dr. Suzie Brooks Color (U) YELLOW Normal YELLOW [facility] Comment on above: Performed By: #### U DINA, LIPID, TSH, BNP, CMP, T7 #### [facility] [address] [place] [address] Dr. Suzie Brooks ERUAHD A micrscopic examina tion will be performed if indicated. Normal [facility] Comment on above: Performed By: #### U DINA, LIPID, TSH, BNP, CMP, T7 #### [facility] [address] [address] [address] Suzie Brooks Glucose Ql (U) Negative Normal NEGATIVE [facility] Comment on above: Performed By: #### U DINA, LIPID, TSH, BNP, CMP, T7 #### [facility] [address] [address] [address] Suzie Brooks Hemoglobin Ql (U) LARGE Abnormal NEGATIVE [facility] Comment on above: Performed By: #### U DINA, LIPID, TSH, BNP, CMP, T7 #### [facility] [address] [place] [address] Dr. Suzie Brooks Ketones Ql (U) Negative Normal NEGATIVE [facility] Comment on above: Performed By: #### U DINA, LIPID, TSH, BNP, CMP, T7 #### [facility] [address] [place] [address] Dr. Suzie Brooks LEUKOCYTES TRACE Abnormal NEGATIVE [facility] [place] [facility] Comment on above: Performed By: #### U DINA, LIPID, TSH, BNP, CMP, T7 #### [facility] [address] [place] [address] Dr. Suzie Brooks Nitrite Ql (U) Negative Normal NEGATIVE [facility] Comment on above: Performed By: #### U DINA, LIPID, TSH, BNP, CMP, T7 #### [facility] [address] [place] [address] Dr. Suzie Brooks pH (U) 5.0 [pH] Normal 5-9 [facility] Comment on above: Performed By: #### U DINA, LIPID, TSH, BNP, CMP, T7 #### [facility] [address] [address] [address] Suzie Brooks Protein (U) [Mass/Vol] 100 mg/dL Abnormal NEGATIVE/ TRACE [facility] Comment on above: Performed By: #### U DINA, LIPID, TSH, BNP, CMP, T7 #### [facility] [address] [place] [address] Dr. Suzie Brooks SPEC GRAVITY 1.030 Abnormal 1.005-<=1.02 5 [facility] Comment on above: Performed By: #### U DINA, LIPID, TSH, BNP, CMP, T7 #### [facility] [address] [address] [address] Suzie Brooks UR MICRO IND INDICATED Normal [facility] [place] [facility] Comment on above: Performed By: #### U DINA, LIPID, TSH, BNP, CMP, T7 #### [facility] [address] [address] [address] Suzie Brooks Urobilinogen Qn (U) 0.2 {Behzad'U}/dL Normal 0.2 - 1. 0 [facility] [place] [facility] Comment on above: Performed By: #### U DINA, LIPID, TSH, BNP, CMP, T7 #### [facility] [address] [address] [address] Suzie Brooks LACTATE/LACTIC ACIDon 2021 Lactate [Moles/Vol] 1.0 mmol/L Normal 0.7-2.0 [facility] Comment on above: Performed By: #### U DINA, LIPID, TSH, BNP, CMP, T7 #### [facility] [address] [place] [address] Dr. Suzie Brooks PROF 14(COMP METB)on 022 Albumin [Mass/Vol] 3.8 g/dL Normal 3.4-5.0 [facility] Comment on above: Performed By: #### U DINA, LIPID, TSH, BNP, CMP, T7 #### [facility] [address] [place] [address] Dr. Suzie Brooks Albumin/Globulin [Mass ratio] 1.0 {ratio} Normal [facility] [place] [facility] Comment on above: Performed By: #### U DINA, LIPID, TSH, BNP, CMP, T7 #### [facility] [address] [place] [address] Dr. Suzie Brooks ALP [Catalytic activity/Vol] 66 U/L Normal 46-116 [facility] [place] [facility] Comment on above: Performed By: #### U DINA, LIPID, TSH, BNP, CMP, T7 #### [facility] [address] [place] [address] Dr. Suzie Brooks ALT [Catalytic activity/Vol] 52 U/L Normal 16-63 [facility] [place] [facility] Comment on above: Performed By: #### U DINA, LIPID, TSH, BNP, CMP, T7 #### [facility] [address] [address] [address] Suzie Brooks Anion gap [Moles/Vol] 14.7 mmol/L Normal [facility] [place] [facility] Comment on above: Performed By: #### U DINA, LIPID, TSH, BNP, CMP, T7 #### [facility] [address] [address] [address] Suzie Brooks AST [Catalytic activity/Vol] 40 U/L Critically high 15-37 [facility] [place] [facility] Comment on above: Performed By: #### U DINA, LIPID, TSH, BNP, CMP, T7 #### [facility] [address] [place] [address] Dr. Suzie Brooks Bilirubin [Mass/Vol] 0.6 mg/dL Normal 0.2-1.3 [facility] [place] [facility] Comment on above: Performed By: #### U DINA, LIPID, TSH, BNP, CMP, T7 #### [facility] [address] [address] [address] Suzie Brooks Calcium [Mass/Vol] 8.2 mg/dL Critically low 8.5-10.1 [facility] Comment on above: Performed By: #### U DINA, LIPID, TSH, BNP, CMP, T7 #### [facility] [address] [address] [address] Suzie Brooks Chloride [Moles/Vol] 102 mmol/L Normal 98-107 [facility] [place] [facility] Comment on above: Performed By: #### U DINA, LIPID, TSH, BNP, CMP, T7 #### [facility] [address] [address] [address] Suzie Brooks CO2 [Moles/Vol] 27.4 mmol/L Normal 22.0-30.0 [facility] Comment on above: Performed By: #### U DINA, LIPID, TSH, BNP, CMP, T7 #### [facility] [address] [place] [address] Dr. Suzie Brooks Creatinine [Mass/Vol] 1.05 mg/dL Normal 0.66-1.25 [facility] [place] [facility] Comment on above: Performed By: #### U DINA, LIPID, TSH, BNP, CMP, T7 #### [facility] [address] [address] [address] Suzie Brooks EGFR-AF ENGLISH >60 Normal >=60 [facility] Comment on above: Performed By: #### U DINA, LIPID, TSH, BNP, CMP, T7 #### [facility] [address] [address] [address] Suzie Brooks EGFR-NON AF ENGLISH >60 Normal >=60 [facility] [place] [facility] Comment on above: Performed By: #### U DINA, LIPID, TSH, BNP, CMP, T7 #### [facility] [address] [address] [address] Suzie Brokos Globulin (S) [Mass/Vol] 3.7 g/dL Normal [facility] [place] [facility] Comment on above: Performed By: #### U DINA, LIPID, TSH, BNP, CMP, T7 #### [facility] [address] [place] [address] Dr. Suzie Brooks Glucose [Mass/Vol] 124 mg/dL Critically high 74-106 [facility] Comment on above: Performed By: #### U DINA, LIPID, TSH, BNP, CMP, T7 #### [facility] [address] [address] [address] Suzie Brooks Potassium [Moles/Vol] 4.1 mmol/L Normal 3.4-5.0 [facility] [place] [facility] Comment on above: Performed By: #### U DINA, LIPID, TSH, BNP, CMP, T7 #### [facility] [address] [address] [address] Suzie Brooks Protein [Mass/Vol] 7.5 g/dL Normal 6.1-8.2 [facility] Comment on above: Performed By: #### U DINA, LIPID, TSH, BNP, CMP, T7 #### [facility] [address] [place] [address] Dr. Suzie Brooks Sodium [Moles/Vol] 140 mmol/L Normal 137-145 [facility] Comment on above: Performed By: #### U DINA, LIPID, TSH, BNP, CMP, T7 #### [facility] [address] [address] [address] Suzie Brooks Urea nitrogen [Mass/Vol] 16.0 mg/dL Normal 7.0-18.0 [facility] Comment on above: Performed By: #### U DINA, LIPID, TSH, BNP, CMP, T7 #### [facility] [address] [address] [address] Suzie Brooks Urea nitrogen/Creatinine [Mass ratio] 15.2 mg/mg Normal [facility] Comment on above: Performed By: #### U DINA, LIPID, TSH, BNP, CMP, T7 #### [facility] [address] [address] [address] Suzie Brooks URINE MICROSCOPIC ONLYon BACTERIA SMALL Abnormal NONE SEEN [facility] Comment on above: Performed By: #### U DINA, LIPID, TSH, BNP, CMP, T7 #### [facility] [address] [place] [address] Dr. Suzie Brooks Bacteria identified Cx Nom (U) INDICATED Normal [facility] Comment on above: Performed By: #### U DINA, LIPID, TSH, BNP, CMP, T7 #### [facility] [address] [place] [address] Dr. Suzie Brooks CAST NONE SEEN Normal NONE SEEN [facility] [place] [facility] Comment on above: Performed By: #### U DINA, LIPID, TSH, BNP, CMP, T7 #### [facility] [address] [address] [address] Suzie Brooks Crystals LM Nom (Urine sed) NONE SEEN Normal NONE SEEN [facility] Comment on above: Performed By: #### U DINA, LIPID, TSH, BNP, CMP, T7 #### [facility] [address] [address] [address] Suzie Brooks Epithelial cells LM Ql (Urine sed) RARE Normal NONE SEEN /RARE [facility] Comment on above: Performed By: #### U DINA, LIPID, TSH, BNP, CMP, T7 #### [facility] [address] [address] [address] Suzie Brooks MUCOUS NONE SEEN Normal NONE SEEN [facility] Comment on above: Performed By: #### U DIAN, LIPID, TSH, BNP, CMP, T7 #### [facility] [address] [place], [place] [address] Dr. Suzie Brooks RBC 50-75 Abnormal 0-2 [facility] Comment on above: Performed By: #### U DINA, LIPID, TSH, BNP, CMP, T7 #### [facility] [address] [place], [place] [address] Dr. Suzie Brooks WBC 20-50 Abnormal NONE SEEN [facility] Comment on above: Performed By: #### U DINA, LIPID, TSH, BNP, CMP, T7 #### [facility] [address] [place], [place] [address] Dr. Suzie Brooks XR KUB 1 VIEWon [...] BEHZAD SANTOS Date: 2021-11-06 21:58 Normal [facility] XR KUB 1 VIEW EXAMINATION: XR KUB [...] RAFAEL GRAVES Date: 2021-11-06 08:06 Normal [facility] CBC AUTO DIFFon 11-05-2021 BASO # 0.1 103/ul Normal 0.0-0.1 [facility] [place] [facility] Comment on above: Performed By: #### U DINA, LIPID, TSH, BNP, CMP, T7 #### [facility] [address] [address] [address] Suzie Brooks Basophils/100 WBC (Bld) 0.6 % Normal 0.2-2.0 [facility] Comment on above: Performed By: #### U DINA, LIPID, TSH, BNP, CMP, T7 #### [facility] [address] [place] [address] Dr. Suzie Brooks EO # 0.3 103/ul Normal 0.0-0.7 [facility] [place] [facility] Comment on above: Performed By: #### U DINA, LIPID, TSH, BNP, CMP, T7 #### [facility] [address] [place] [address] Dr. Suzie Brooks Eosinophils/100 WBC (Bld) 2.2 % Normal 0.9-7.0 [facility] [place] [facility] Comment on above: Performed By: #### U DINA, LIPID, TSH, BNP, CMP, T7 #### [facility] [address] [place] [address] Dr. Suzie Brooks Erythrocyte distribution width (RBC) [Ratio] 13.7 % Normal 11.0-15.0 [facility] [place] [facility] Comment on above: Performed By: #### U DINA, LIPID, TSH, BNP, CMP, T7 #### [facility] [address] [place] [address] Dr. Suzie Brooks Hematocrit (Bld) [Volume fraction] 49.0 % Normal 42.0-54.0 [facility] Comment on above: Performed By: #### U DINA, LIPID, TSH, BNP, CMP, T7 #### [facility] [address] [place] [address] Dr. Suzie Brooks Hemoglobin (Bld) [Mass/Vol] 15.9 g/dL Normal 14.0-18.0 [facility] Comment on above: Performed By: #### U DINA, LIPID, TSH, BNP, CMP, T7 #### [facility] [address] [place] [address] Dr. Suzie Brooks IG # 0.07 10e3/ul Critically high 0.00-0.03 [facility] Comment on above: Performed By: #### U DINA, LIPID, TSH, BNP, CMP, T7 #### [facility] [address] [place] [address] Dr. Suzie Brooks IG % 0.5 % Normal 0.0-0.5 [facility] [place] [facility] Comment on above: Performed By: #### U DINA, LIPID, TSH, BNP, CMP, T7 #### [facility] [address] [place] [address] Dr. Suzie Brooks LYMPH # 3.1 103/ul Normal 1.2-3.8 [facility] Comment on above: Performed By: #### U DINA, LIPID, TSH, BNP, CMP, T7 #### [facility] [address] [place] [address] Dr. Suzie Brooks Lymphocytes/100 WBC (Bld) 23.8 % Normal 20.5-60.0 [facility] [place] [facility] Comment on above: Performed By: #### U DINA, LIPID, TSH, BNP, CMP, T7 #### [facility] [address] [place] [address] Dr. Suzie Brooks MANUAL DIFF REQ NO Normal [facility] Comment on above: Performed By: #### U DINA, LIPID, TSH, BNP, CMP, T7 #### [facility] [address] [place] [address] Dr. Suzie Brooks MCH (RBC) [Entitic mass] 28.8 pg Normal 25.9-34.0 [facility] Comment on above: Performed By: #### U DINA, LIPID, TSH, BNP, CMP, T7 #### [facility] [address] [place] [address] Dr. Suzie Brooks MCHC (RBC) [Mass/Vol] 32.4 g/dL Normal 29.9-35.2 [facility] Comment on above: Performed By: #### U DINA, LIPID, TSH, BNP, CMP, T7 #### [facility] [address] [place] [address] Dr. Suzie Brooks MCV (RBC) [Entitic vol] 88.8 fL Normal 80.0-94.0 [facility] Comment on above: Performed By: #### U DINA, LIPID, TSH, BNP, CMP, T7 #### [facility] [address] [address] [address] Suzie Brooks MONO # 0.9 103/ul Critically high 0.3-0.8 [facility] Comment on above: Performed By: #### U DINA, LIPID, TSH, BNP, CMP, T7 #### [facility] [address] [place] [address] Dr. Suzie Brooks Monocytes/100 WBC (Bld) 6.8 % Normal 1.7-12.0 [facility] Comment on above: Performed By: #### U DINA, LIPID, TSH, BNP, CMP, T7 #### [facility] [address] [place] [address] Dr. Suzie Brooks NEUT # 8.7 103/ul Critically high 1.4-6.5 [facility] Comment on above: Performed By: #### U DINA, LIPID, TSH, BNP, CMP, T7 #### [facility] [address] [place] [address] Dr. Suzie Brooks Neutrophils/100 WBC (Bld) 66.1 % Normal 43.0-75.0 [facility] Comment on above: Performed By: #### U DINA, LIPID, TSH, BNP, CMP, T7 #### [facility] [address] [place] [address] Dr. Suzie Brooks Platelet mean volume (Bld) [Entitic vol] 9.4 fL Critically low 9.5-13.5 [facility] Comment on above: Performed By: #### U DINA, LIPID, TSH, BNP, CMP, T7 #### [facility] [address] [place] [address] Dr. Suzie Brooks PLT 278 103/ul Normal 150-450 [facility] Comment on above: Performed By: #### U DINA, LIPID, TSH, BNP, CMP, T7 #### [facility] [address] [place] [address] Dr. Suzie Brooks RBC 5.52 106/ul Normal 4.70-6.10 [facility] Comment on above: Performed By: #### U DINA, LIPID, TSH, BNP, CMP, T7 #### [facility] [address] [place], [place] [address] Dr. Suzie Brooks WBC 13.1 103/ul Critically high 4.0-11.0 [facility] Comment on above: Performed By: #### U DINA, LIPID, TSH, BNP, CMP, T7 #### [facility] [address] [place], [place] [address] ABD/PELVIS WO CONon [...] RAFAEL GRAVES Date: 2021-11-05 11:46 Normal [facility] CULTURE URINEon 11-05-2021 CULTURE URINE Culture Observations : No growth Normal [facility] [place] [facility] Comment on above: Performed By: #### M AG24 #### [facility] [address] [place] [address] Dr. Suzie Brooks ER URINE PROFILEon 2 Bilirubin Ql (U) Negative Normal NEGATIVE [facility] Comment on above: Performed By: #### C VDTBH #### [facility] [address] [place] [address] Dr. Suzie Brooks Clarity (U) CLEAR Normal CLEAR [facility] [place] [facility] Comment on above: Performed By: #### C VDTBH #### [facility] [address] [place] [address] Dr. Suzie Brooks Color (U) DK. YELLOW Normal YELLOW [facility] [place] [facility] Comment on above: Performed By: #### C VDTBH #### [facility] [address] [place] [address] Dr. Suzie Brooks ERUAHD A micrscopic examina tion will be performed if indicated. Normal [facility] Comment on above: Performed By: #### C VDTBH #### [facility] [address] [place] [address] Dr. Suzie Brooks Glucose Ql (U) Negative Normal NEGATIVE [facility] Comment on above: Performed By: #### C VDTBH #### [facility] [address] [place] [address] Dr. Suzie Brooks Hemoglobin Ql (U) LARGE Abnormal NEGATIVE [facility] Comment on above: Performed By: #### C VDTBH #### [facility] [address] [place] [address] Dr. Suzie Brooks Ketones Ql (U) Negative Normal NEGATIVE [facility] Comment on above: Performed By: #### C VDTBH #### [facility] [address] [place] [address] Dr. Suzie Brooks LEUKOCYTES Negative Normal NEGATIVE [facility] Comment on above: Performed By: #### C VDTBH #### [facility] [address] [place] [address] Dr. Suzie Brooks Nitrite Ql (U) Negative Normal NEGATIVE [facility] Comment on above: Performed By: #### C VDTBH #### [facility] [address] [place] [address] Dr. Suzie Brooks pH (U) 5.0 [pH] Normal 5-9 [facility] [place] [facility] Comment on above: Performed By: #### C VDTBH #### [facility] [address] [place] [address] Dr. Suzie Brooks Protein (U) [Mass/Vol] 100 mg/dL Abnormal NEGATIVE/ TRACE [facility] [place] [facility] Comment on above: Performed By: #### C VDTBH #### [facility] [address] [place] [address] Dr. Suzie Brooks SPEC GRAVITY >=1.030 Abnormal 1.005-<=1.02 5 [facility] Comment on above: Performed By: #### C VDTBH #### [facility] [address] [place] [address] Dr. Suzie Brooks UR MICRO IND INDICATED Normal [facility] Comment on above: Performed By: #### C VDTBH #### [facility] [address] [place] [address] Dr. Suzie Brooks Urobilinogen Qn (U) 0.2 {Behzad'U}/dL Normal 0.2 - 1. 0 [facility] Comment on above: Performed By: #### C VDTBH #### [facility] [address] [place] [address] Dr. Suzie Brooks PROF 14(COMP METB)on 022 Albumin [Mass/Vol] 3.9 g/dL Normal 3.4-5.0 [facility] Comment on above: Performed By: #### U DINA, LIPID, TSH, BNP, CMP, T7 #### [facility] [address] [place] [address] Dr. Suzie Brooks Albumin/Globulin [Mass ratio] 1.1 {ratio} Normal [facility] Comment on above: Performed By: #### U DINA, LIPID, TSH, BNP, CMP, T7 #### [facility] [address] [place] [address] Dr. Suzie Brooks ALP [Catalytic activity/Vol] 64 U/L Normal 46-116 [facility] Comment on above: Performed By: #### U DINA, LIPID, TSH, BNP, CMP, T7 #### [facility] [address] [place] [address] Dr. Suzie Brooks ALT [Catalytic activity/Vol] 57 U/L Normal 16-63 [facility] Comment on above: Performed By: #### U DINA, LIPID, TSH, BNP, CMP, T7 #### [facility] [address] [place] [address] Dr. Suzie Brooks Anion gap [Moles/Vol] 14.4 mmol/L Normal [facility] Comment on above: Performed By: #### U DINA, LIPID, TSH, BNP, CMP, T7 #### [facility] [address] [place] [address] Dr. Suzie Brooks AST [Catalytic activity/Vol] 51 U/L Critically high 15-37 [facility] Comment on above: Performed By: #### U DINA, LIPID, TSH, BNP, CMP, T7 #### [facility] [address] [place] [address] Dr. Suzie Brooks Bilirubin [Mass/Vol] 0.8 mg/dL Normal 0.2-1.3 [facility] Comment on above: Performed By: #### U DINA, LIPID, TSH, BNP, CMP, T7 #### [facility] [address] [place] [address] Dr. Suzie Brooks Calcium [Mass/Vol] 8.5 mg/dL Normal 8.5-10.1 [facility] Comment on above: Performed By: #### U DINA, LIPID, TSH, BNP, CMP, T7 #### [facility] [address] [place] [address] Dr. Suzie Brooks Chloride [Moles/Vol] 103 mmol/L Normal 98-107 [facility] Comment on above: Performed By: #### U DINA, LIPID, TSH, BNP, CMP, T7 #### [facility] [address] [place] [address] Dr. Suzie Brooks CO2 [Moles/Vol] 26.8 mmol/L Normal 22.0-30.0 [facility] Comment on above: Performed By: #### U DINA, LIPID, TSH, BNP, CMP, T7 #### [facility] [address] [address] [address] Suzie Brooks Creatinine [Mass/Vol] 0.98 mg/dL Normal 0.66-1.25 [facility] Comment on above: Performed By: #### U DINA, LIPID, TSH, BNP, CMP, T7 #### [facility] [address] [place] [address] Dr. Suzie Brooks EGFR-AF ENGLISH >60 Normal >=60 [facility] Comment on above: Performed By: #### U DINA, LIPID, TSH, BNP, CMP, T7 #### [facility] [address] [place] [address] Dr. Suzie Brooks EGFR-NON AF ENGLISH >60 Normal >=60 [facility] Comment on above: Performed By: #### U DINA, LIPID, TSH, BNP, CMP, T7 #### [facility] [address] [place] [address] Dr. Suzie Brooks Globulin (S) [Mass/Vol] 3.7 g/dL Normal [facility] Comment on above: Performed By: #### U DINA, LIPID, TSH, BNP, CMP, T7 #### [facility] [address] [place] [address] Dr. Suzie Brooks Glucose [Mass/Vol] 118 mg/dL Critically high 74-106 T [facility] Comment on above: Performed By: #### U DINA, LIPID, TSH, BNP, CMP, T7 #### [facility] [address] [place] [address] Dr. Suzie Brooks Potassium [Moles/Vol] 4.2 mmol/L Normal 3.4-5.0 [facility] Comment on above: Performed By: #### U DINA, LIPID, TSH, BNP, CMP, T7 #### [facility] [address] [place] [address] Dr. Suzie Brooks Protein [Mass/Vol] 7.6 g/dL Normal 6.1-8.2 [facility] Comment on above: Performed By: #### U DINA, LIPID, TSH, BNP, CMP, T7 #### [facility] [address] [place] [address] Dr. Suzie Brooks Sodium [Moles/Vol] 140 mmol/L Normal 137-145 [facility] Comment on above: Performed By: #### U DINA, LIPID, TSH, BNP, CMP, T7 #### [facility] [address] [place] [address] Dr. Suzie Brooks Urea nitrogen [Mass/Vol] 14.0 mg/dL Normal 7.0-18.0 [facility] Comment on above: Performed By: #### U DINA, LIPID, TSH, BNP, CMP, T7 #### [facility] [address] [place] [address] Dr. Suzie Brooks Urea nitrogen/Creatinine [Mass ratio] 14.3 mg/mg Normal [facility] Comment on above: Performed By: #### U DINA, LIPID, TSH, BNP, CMP, T7 #### [facility] [address] [place] [address] Dr. Suzie Brooks URINE MICROSCOPIC ONLYon BACTERIA MODERATE Abnormal NONE SEEN [facility] Comment on above: Performed By: #### C VDTBH #### [facility] [address] [place] [address] Dr. Suzie Brooks Bacteria identified Cx Nom (U) INDICATED Normal [facility] Comment on above: Performed By: #### C VDTBH #### [facility] [address] [place] [address] Dr. Suzie Brooks CAST SEEN Abnormal NONE SEEN [facility] Comment on above: Performed By: #### C VDTBH #### [facility] [address] [place] [address] Dr. Suzie Brooks Crystals LM Nom (Urine sed) NONE SEEN Normal NONE SEEN [facility] Comment on above: Performed By: #### C VDTBH #### [facility] [address] [place] [address] Dr. Suzie Brooks Epithelial cells LM Ql (Urine sed) RARE Normal NONE SEEN /RARE [facility] Comment on above: Performed By: #### C VDTBH #### [facility] [address] [address] [address] Suzie Brooks HYALINE CAST RARE Normal [facility] Comment on above: Performed By: #### C VDTBH #### [facility] [address] [address] [address] Suzie Brooks MUCOUS NONE SEEN Normal NONE SEEN [facility] Comment on above: Performed By: #### C VDTBH #### [facility] [address] [address] [address] Suzie Brooks RBC (U) [#/Vol] /uL Abnormal 0-2 [facility] Comment on above: Performed By: #### C VDTBH #### [facility] [address] [place] [address] Dr. Suzie Brooks WBC NONE SEEN Normal NONE SEEN [facility] Comment on above: Performed By: #### C VDTBH #### [facility] [address] [place] [address] Dr. Suzie Brooks XR KUB 1 VIEWon [...] BEHZAD CARRASQUILLO Date: 2021-11-01 12:07 Normal [facility] CBC AUTO DIFFon 10-26-2021 BASO # 0.1 103/ul Normal 0.0-0.1 [facility] Comment on above: Performed By: #### U DINA, LIPID, TSH, BNP, CMP, T7 #### [facility] [address] [address] [address] Suzie Brooks Basophils/100 WBC (Bld) 0.7 % Normal 0.2-2.0 [facility] Comment on above: Performed By: #### U DINA, LIPID, TSH, BNP, CMP, T7 #### [facility] [address] [place] [address] Dr. Suzie Brooks EO # 0.2 103/ul Normal 0.0-0.7 [facility] Comment on above: Performed By: #### U DINA, LIPID, TSH, BNP, CMP, T7 #### [facility] [address] [place] [address] Dr. Suzie Brooks Eosinophils/100 WBC (Bld) 1.5 % Normal 0.9-7.0 [facility] Comment on above: Performed By: #### U DINA, LIPID, TSH, BNP, CMP, T7 #### [facility] [address] [place] [address] Dr. Suzie Brooks Erythrocyte distribution width (RBC) [Ratio] 13.9 % Normal 11.0-15.0 [facility] Comment on above: Performed By: #### U DINA, LIPID, TSH, BNP, CMP, T7 #### [facility] [address] [place] [address] Dr. Suzie Brooks Hematocrit (Bld) [Volume fraction] 47.5 % Normal 42.0-54.0 [facility] Comment on above: Performed By: #### U DINA, LIPID, TSH, BNP, CMP, T7 #### [facility] [address] [place] [address] Dr. Suzie Brooks Hemoglobin (Bld) [Mass/Vol] 15.5 g/dL Normal 14.0-18.0 [facility] Comment on above: Performed By: #### U DINA, LIPID, TSH, BNP, CMP, T7 #### [facility] [address] [place] [address] Dr. Suzie Brooks IG # 0.06 10e3/ul Critically high 0.00-0.03 [facility] Comment on above: Performed By: #### U DINA, LIPID, TSH, BNP, CMP, T7 #### [facility] [address] [place] [address] Dr. Suzie Brooks IG % 0.5 % Normal 0.0-0.5 [facility] Comment on above: Performed By: #### U DINA, LIPID, TSH, BNP, CMP, T7 #### [facility] [address] [place] [address] Dr. Suzie Brooks LYMPH # 2.6 103/ul Normal 1.2-3.8 [facility] Comment on above: Performed By: #### U DINA, LIPID, TSH, BNP, CMP, T7 #### [facility] [address] [place] [address] Dr. Suzie Brooks Lymphocytes/100 WBC (Bld) 23.1 % Normal 20.5-60.0 [facility] Comment on above: Performed By: #### U DINA, LIPID, TSH, BNP, CMP, T7 #### [facility] [address] [place] [address] Dr. Suzie Brooks MANUAL DIFF REQ NO Normal [facility] Comment on above: Performed By: #### U DINA, LIPID, TSH, BNP, CMP, T7 #### [facility] [address] [place] [address] Dr. Suzie Brooks MCH (RBC) [Entitic mass] 28.9 pg Normal 25.9-34.0 [facility] Comment on above: Performed By: #### U DINA, LIPID, TSH, BNP, CMP, T7 #### [facility] [address] [place] [address] Dr. Suzie Brooks MCHC (RBC) [Mass/Vol] 32.6 g/dL Normal 29.9-35.2 [facility] Comment on above: Performed By: #### U DINA, LIPID, TSH, BNP, CMP, T7 #### [facility] [address] [place] [address] Dr. Suzie Brooks MCV (RBC) [Entitic vol] 88.5 fL Normal 80.0-94.0 [facility] Comment on above: Performed By: #### U DINA, LIPID, TSH, BNP, CMP, T7 #### [facility] [address] [place] [address] Dr. Suzie Brooks MONO # 0.9 103/ul Critically high 0.3-0.8 [facility] Comment on above: Performed By: #### U DINA, LIPID, TSH, BNP, CMP, T7 #### [facility] [address] [address] [address] Suzie Brooks Monocytes/100 WBC (Bld) 7.9 % Normal 1.7-12.0 [facility] Comment on above: Performed By: #### U DINA, LIPID, TSH, BNP, CMP, T7 #### [facility] [address] [address] [address] Suzie Brooks NEUT # 7.4 103/ul Critically high 1.4-6.5 [facility] Comment on above: Performed By: #### U DINA, LIPID, TSH, BNP, CMP, T7 #### [facility] [address] [place] [address] Dr. Suzie Brooks Neutrophils/100 WBC (Bld) 66.3 % Normal 43.0-75.0 [facility] Comment on above: Performed By: #### U DINA, LIPID, TSH, BNP, CMP, T7 #### [facility] [address] [address] [address] Suzie Brooks Platelet mean volume (Bld) [Entitic vol] 9.6 fL Normal 9.5-13.5 [facility] Comment on above: Performed By: #### U DINA, LIPID, TSH, BNP, CMP, T7 #### [facility] [address] [place] [address] Dr. Suzie Brooks PLT 252 103/ul Normal 150-450 [facility] Comment on above: Performed By: #### U DINA, LIPID, TSH, BNP, CMP, T7 #### [facility] [address] [address] [address] Suzie Brooks RBC 5.37 106/ul Normal 4.70-6.10 [facility] Comment on above: Performed By: #### U DINA, LIPID, TSH, BNP, CMP, T7 #### [facility] [address] [address] [address] Suzie Brooks WBC 11.2 103/ul Critically high 4.0-11.0 [facility] Comment on above: Performed By: #### U DINA, LIPID, TSH, BNP, CMP, T7 #### [facility] [address] [place] [address] Dr. Suzie Brooks Covid-19 PCR ([facility])on 10-09 SARS-CoV-2 (COVID-19) RNA SUKHJINDER+probe Ql (Unsp spec) Not detected Normal NOT DETECTED [facility] Comment on above: Result Comment: This test is not yet approved or cleared by the [place] FDA. When there are no FDA-approved or cleared tests available, and other criteria are met, FDA can make tests available under an emergency access mechanism called an Emergency Use Authorization (EUA). The EUA for this test is supported by the [place] of Health and Human Service's (HHS's) declaration [...] DINA, LIPID, TSH, BNP, CMP, T7 #### [facility] [address] [address] [address] Suzie Brooks PROF CHEM 8 (BAS METB)on Anion gap [Moles/Vol] 7.7 mmol/L Normal [facility] Comment on above: Performed By: #### C VDTBH #### [facility] [address] [place] [address] Dr. Suzie Brooks Calcium [Mass/Vol] 8.6 mg/dL Normal 8.5-10.1 [facility] Comment on above: Performed By: #### C VDTBH #### [facility] [address] [place] [address] Dr. Suzie Brooks Chloride [Moles/Vol] 104 mmol/L Normal 98-107 [facility] Comment on above: Performed By: #### C VDTBH #### [facility] [address] [address] [address] Suzie Brooks CO2 [Moles/Vol] 31.8 mmol/L Critically high 22.0-30.0 [facility] Comment on above: Performed By: #### C VDTBH #### [facility] [address] [place] [address] Dr. Suzie Brooks Creatinine [Mass/Vol] 0.99 mg/dL Normal 0.66-1.25 [facility] Comment on above: Performed By: #### C VDTBH #### [facility] [address] [place] [address] Dr. Suzie Brooks EGFR-AF ENGLISH >60 Normal >=60 [facility] Comment on above: Performed By: #### C VDTBH #### [facility] [address] [place] [address] Dr. Suzie Brooks EGFR-NON AF ENGLISH >60 Normal >=60 [facility] Comment on above: Performed By: #### C VDTBH #### [facility] [address] [place] [address] Dr. Suzie Brooks Glucose [Mass/Vol] 94 mg/dL Normal 74-106 [facility] Comment on above: Performed By: #### C VDTBH #### [facility] [address] [place] [address] Dr. Suzie Brooks Potassium [Moles/Vol] 4.5 mmol/L Normal 3.4-5.0 [facility] Comment on above: Performed By: #### C VDTBH #### [facility] [address] [place] [address] Dr. Suzie Brooks Sodium [Moles/Vol] 139 mmol/L Normal 137-145 [facility] Comment on above: Performed By: #### C VDTBH #### [facility] [address] [place] [address] Dr. Suzie Brooks Urea nitrogen [Mass/Vol] 12.0 mg/dL Normal 7.0-18.0 [facility] Comment on above: Performed By: #### C VDTBH #### [facility] [address] [place] [address] Dr. Suzie Brooks Urea nitrogen/Creatinine [Mass ratio] 12.1 mg/mg Normal [facility] Comment on above: Performed By: #### C VDTBH #### [facility] [address] [place] [address] Dr. Suzie Brooks PROTIMEon 10-26-2021 INR Coag (PPP) [Relative time] 0.99 {INR} Normal [facility] Comment on above: Performed By: #### C VDTBH #### [facility] [address] [place] [address] Dr. Suzie Brooks INR GUIDELINES SEE BELOW Normal [facility] Comment on above: Result Comment: TOMMY RED INR: 2.0 - 3.0 CONDITIONS NOT LISTED BELOW 2.5 - 3.5 FOR PROSTHETIC HEART VALVE REPLACEMENT 2.5 - 3.5 RECURRENT THROMBOSIS Performed By: #### C VDTBH #### [facility] [address] [place] [address] Dr. Suzie Brooks PT Coag (PPP) [Time] 10.7 s Normal 9.0-11.6 [facility] Comment on above: Performed By: #### C VDTBH #### [facility] [address] [place] [address] Dr. Suzie Brooks PTTon 10-26-2021 aPTT Coag (Bld) [Time] 26.4 s Normal 22.3-36.2 [facility] Comment on above: Performed By: #### C VDTBH #### [facility] [address] [place] [address] Dr. Suzie Brooks XR KUB 1 VIEWon [...] by: RAFAEL GRAVES Date: 2021-10-17 13:26 Normal [facility] Vital Signs Date Time Vital Sign Value Performing Clinician Dario mcdonough 04-16-2024 11:38-0400 Blood Pressure Location Micki Inbilin [facility] 04-16-2024 11:38-0400 Diastolic blood pressure 75 mm[Hg] Micki Inbilin [facility] 04-16-2024 11:38-0400 Heart rate 96 /min Micki Inbilin [facility] 04-16-2024 11:38-0400 Respiratory rate 18 /min Micki ZENG [facility] 04-16-2024 11:38-0400 Systolic blood pressure 131 mm[Hg] Micki Inbilin [facility] 04-01-2024 15:04-0400 Body height 182.9 cm [employer] Work Phone: [facility] 04-01-2024 15:04-0400 Body mass index (BMI) [Ratio] 39.33 kg/m2 [employer] DO Work Phone: [facility] 04-01-2024 15:04-0400 Body weight 131.54 kg [employer] Work Phone: [facility] 04-01-2024 15:04-0400 Diastolic blood pressure 92 mm[Hg] [employer] Work Phone: [facility] 04-01-2024 15:04-0400 Systolic blood pressure 140 mm[Hg] [employer] DO Work Phone: [facility] 04-11-2023 11:55-0400 Blood Pressure Location Micki ZENG [facility] 04-11-2023 11:55-0400 Diastolic blood pressure 76 mm[Hg] Micki ZENG [facility] 04-11-2023 11:55-0400 Heart rate 80 /min Micki ZENG [facility] 04-11-2023 11:55-0400 Respiratory rate 16 /min Micki ZENG [facility] 04-11-2023 11:55-0400 Systolic blood pressure 134 mm[Hg] Micki ZENG [facility] 02-25-2022 14:20-0400 Blood Pressure Location Micki ZENG [facility] 02-25-2022 14:20-0400 Diastolic blood pressure 100 mm[Hg] Micki ZENG [facility] 02-25-2022 14:20-0400 Heart rate 86 /min Micki ZENG [facility] 02-25-2022 14:20-0400 Respiratory rate 16 /min Micki ZENG [facility] 02-25-2022 14:20-0400 Systolic blood pressure 155 mm[Hg] Micki ZENG [facility] Encounters Encounter Date Encounter Type Care Provider Facility Start: 04-15-2025 ambulatory Micki Muhammadi ty:[facility] Start: 04-16-2024 End: 04-16-2024 ambulatory Micki ZENG Facility: [facility] Start: 04-16-2024 End: 04-16-2024 Patient encounter procedure Micki ZENG [facility] Start: 04-01-2024 End: 04-01-2024 Office outpatient visit 15 minutes Christopher Brennon DO Work Phone: [facility] Comment on above: Essential tremor (Pr imary Dx); Essential hypertension (CMS/HCC) Start: 04-01-2024 End: 04-01-2024 ambulatory TRACEY WILLETT Not Available Start: 04-01-2024 End: 04-01-2024 Bamboo flowsheet Uliceser Brennon DO Work Phone: [facility] Start: 04-01-2024 End: 04-01-2024 Bamboo flowsheet Uliceser Brennon DO Work Phone: [facility] Start: 04-11-2023 End: 04-11-2023 Patient encounter procedure Micki ZENG [facility] Start: 08-14-[address] MARIELLE LERMA Facility :[facility] Start: 08-13-[address] MARIELLE LERMA Facility :[facility] Start: 07-26-2022 End: 07-27-[address] MARIELLE LERMA Facility:[facility] Start: 07-18-2022 End: 07-19-[address] MICKI ZENG Facility:[facility] Start: 05-15-2022 End: 05-16-[address] MARIELLE LERMA Facility:[facility] Start: 02-25-2022 End: 02-25-2022 Patient encounter procedure Micki ZENG [facility] Start: 02-18-2022 End: 02-18-[address] MARIELLE LERMA Facility:[facility] Start: 02-16-2022 End: 02-17-[address] MARIELLE LERMA Facility:[facility] Start: 02-01-2022 End: 02-01-[address] MICKI ZENG Facility:[facility] Start: 01-30-2022 End: 01-31-[address] MICKI ZENG Facility:[facility] Start: 12-18-2021 End: 12-19-[address] MICKI ZENG Facility:[facility] Start: 11-21-2021 End: 11-22-[address] MARIELLE LREMA Facility:[facility] Start: 11-13-2021 End: 11-13-2021 Patient encounter procedure MD Marielle Lerma Work Phone: [facility] Start: 11-12-2021 End: 11-13-[address] MICKI ZENG Facility:[facility] Start: 11-06-2021 End: 11-07-[address] MARIELLE LERMA Facility:[facility] Start: 11-05-2021 End: 11-05-[address] MARIELLE LERMA Facility:[facility] Start: 11-01-2021 End: 11-01-[address] MICKI ZENG Facility:[facility] Start: 10-31-2021 Encounter for preprocedural cardiovascular examination DR MICKI ZENG [facility] Start: 10-30-[address] MICKI ZENG [facility] ity:[facility] Start: 10-26-2021 End: 10-27-[address] MICKI ZENG Facility:[facility] Start: 10-26-2021 End: 10-27-2021 Encounter for preprocedural cardiovascular examination DR MICKI ZENG Facility:[facility] Start: 10-17-2021 End: 10-18-[address] MICKI ZENG Facility:[facility] Procedures Date Procedure Procedure Detail Performing Clinician Start: 05-15-[address] JHONATAN ZENG Comment on above: Performed By: #### U DINA, LIPID, TSH, BNP, CMP, T7 #### [facility] [address] [place] [address] Dr. Suzie Brooks Start: 11-21-2021 Cystoscopy Micki [...] procedure 04/18/2025 2:00 PM EDT Office Visit [facility] [address] [place] [phone] Tracey Willett DO [address] [place] [address] [facility] Start: 04-11-2024 Influenza vaccination Influenza Vacc ine (#1) [facility] Start: 04-01-2024 End: 04-01-2024 Patient encounter procedure 04/01/2024 3:00 PM EDT Office Visit [facility] [address] [place] [phone] BrennonTracey [place], DO [address] [place] [id number] [facility] [facility] Comment on above: Arrived Start: 11-09-2023 Screening for malign ant neoplasm of colon [facility] Start: 05-22-2018 Pneumococcal Vaccine : 65+ Years (2 of 2 - PPSV23 or PCV20) Pneumococcal Vaccine: 65+ Years (2 of 2 - PPSV23 or PCV20) [facility] Start: 1950 Screening for malign ant neoplasm of colon [facility] Healthcare Immunizations Immunization Date Immunization Notes Care Provider Fa cility 05-31-2022 SARS-CoV-2 (COVID-19 ) [id number] Micki ZENG [facility] Comment on above: Result Comment: 2022: [id number] 12-22-2021 SARS-CoV-2 (COVID-19 ) mRNA-1273 vaccine Micki ZENG [facility] 06-05-2021 SARS-CoV-2 (COVID-19 ) mRNA-1273 vaccine Micki ZENG [facility] 05-29-2021 influenza virus vaccine, unspecified formulation Micki ZENG [facility] 05-15-2021 influenza virus vaccine, unspecified formulation Micki ZENG [facility] 11-09-2020 SARS-CoV-2 (COVID-19 ) mRNA-1273 vaccine Micki ZENG [facility] 11-01-2020 SARS-CoV-2 (COVID-19 ) mRNA-1273 vaccine Micki ZENG [facility] 10-09-2020 SARS-CoV-2 (COVID-19 ) mRNA-1273 vaccine Micki Inbil[facility] 10-05-2020 SARS-CoV-2 (COVID-19 ) mRNA-1273 vaccine Micki Inbilin [facility] 05-17-2020 influenza virus vaccine, unspecified formulation Micki Inbilin [facility] 06-24-2019 tetanus toxoid, redu roberto carlos diphtheria toxoid, and acellular pertussis vaccine, adsorbed Micki ZENG [facility] 05-25-2019 influenza virus vaccine, unspecified formulation Micki ZENG [facility] 05-22-2017 influenza virus vaccine, unspecified formulation Micki ZENG [facility] 05-22-2017 pneumococcal conjuga te vaccine, 13 valent Micki ZENG [facility] 05-30-2016 influenza, unspecifi ed formulation Micki ZENG [facility] 11-01-2013 zoster vaccine, live Micki ZENG [facility] 12-18-2005 hepatitis A vaccine, adult dosage Micki Inbilin [facility] 10-18-2005 hepatitis B vaccine, pediatric or pediatric/adolescent dosage Micki ZENG [facility] 10-18-2005 tetanus and diphther ia toxoids, adsorbed, preservative free, for adult use (2 Lf of tetanus toxoid and 2 Lf of diphtheria toxoid) Mickikimberly ZENG [facility] 07-26-2005 hepatitis B vaccine, pediatric or pediatric/adolescent dosage Mickikimberly ZENG [facility] 06-20-2005 hepatitis A vaccine, adult dosage Micki ZENG [facility] 06-20-2005 hepatitis B vaccine, pediatric or pediatric/adolescent dosage Micki ZENG [facility] Payers Date Payer Category Payer Private Health Insurance [employer] MEDICARE SUPPLEMENT [id number] 2024-Present [address] [place] [address] Supplement [id number] 2017 Medicare MEDICARE MEDICAR E RAILROAD [id number] 2017-Present [facility] RAILROAD MEDICARE [address] [address] [place] [address] Medicare [id number] 1959 Medicare [id number] Private Health Insurance [id number] 1952 Unknown [id number] 2.16.840.1.306234.3.579 .2.593 1952 Unknown [id number] 2.16.840.1.621079.3.579 .2.593 1952 Unknown [id number] 2.16.840.1.226928.3.579 .2.593 1952 Unknown [id number] 2.16.840.1.946909.3.579 .2.593 1952 Unknown [id number] 2.16.840.1.473851.3.579 .2.593 1952 Unknown [id number] 2.16.840.1.605176.3.579 .2.593 1952 Unknown [id number] 2.16.840.1.953391.3.579 .2.593 1952 Unknown [id number] 2.16.840.1.676637.3.579 .2.593 1952 Unknown [id number] 2.16.840.1.918898.3.579 .2.593 1952 Unknown [id number] 2.16.840.1.418062.3.579 .2.593 1952 Unknown [id number] 2.16.840.1.089866.3.579 .2.593 1952 Unknown [id number] 2.16.840.1.702095.3.579 .2.593 1952 Unknown [id number] 2.16.840.1.457630.3.579 .2.593 1952 Unknown [id number] 2.16.840.1.595733.3.579 .2.593 1952 Unknown [id number] 2.16.840.1.855448.3.579 .2.593 1952 Unknown [id number] 2.16.840.1.011862.3.579 .2.593 1952 Unknown [id number] 2.16.840.1.860959.3.579 .2.593 1952 Unknown [id number] 2.16.840.1.752271.3.579 .2.593 1952 Unknown [id number] 2.16.840.1.180796.3.579 .2.1259 1952 Unknown [id number] 2.16.840.1.746075.3.579 .2.727 1952 Unknown [id number] 2.16.840.1.282597.3.579 .2.727 Self-pay Self Pay [id number] Social History Date Type Detail Facility Start: 10-19-2019 End: 04-16-2024 Tobacco smoking status NVIS Ex-smoker (finding) [facility] Start: 1950 Sex Assigned At Male F [facility] Tobacco smoking status Never [facility] Start: 03-28-2024 Sex Assigned At Male [facility] Start: 03-28-2024 Tobacco smoking stat us NVIS Never smoked tobacco [facility] Start: 03-28-2024 [...] 04-16-2024 Functional Status N/A [facility] 04-11-2023 Functional Status N/A [facility] 02-25-2022 Functional Status N/A [facility] Clinical Notes 02-25-2022 to 04-16-2024 Tracey Willett - 04/01/2024 3:00 PM EDT Note Date & Type Note Facility 04-16-2024 Hospital Discharg e instructions Patient Education 04/16/2024 12:25:38 Kidney Stones, Jgxn-un-Nphe Kidney Stones Kidney stones are rock-like masses [...] Follow these instructions at home: Medicines Take qujs-jnf-lxteqov and prescription medicines only as told by [...] provider. Document Revised: 03/21/2023 Document Reviewed: 03/21/2023 [employer] Patient Education 2023 [employer]. Follow Up Care 04/11/2023 12:50:53 With:THOR BATISTA, Micki Cedeño, URL Address: [facility] [address], [place] [address]- [phone] When: Unknown Comments:3 yr w/ [facility]ID[facility] Note Patient Education Urology Kidney [...] these instructions at home: Medicines ? Take jtjb-sdq-crnezxg and prescription medicines only as told by [...] provider. Document Revised: 03/21/2023 Document Reviewed: 03/21/2023 [employer] Patient Education ? 2023 [employer]. [facility] 04-01-2024 History of Presen t illness [...] reflexes are 1+ and symmetric throughout. Coordination: Pnwjtt-fc-swaq testing and rapid alternating movements are normal Gait: Normal Review and summary of old records: MRI of the brain at [place] 03/10/18: Mild age-related atrophy. No acute findings [...] and return instructions documented in this encounter [facility] 04-11-2023 Hospital Discharg e instructions Patient [...] include: ?8 oz (237 mL) of milk, vzyqibn-ayvxpzqhqtyh-covuc milk, and calcium-fortifiedfruit juice. Calcium-fortified means that [...] ?Spinach (cooked), rhubarb, beets, sweet potatoes, and Haitian chard. ?Peanuts. ?Potato chips, bruneian fries, and baked potatoes with skin on. ?Nuts and nut products. ?Chocolate. If you regularly take a diuretic medicine, make sure to eat at least 1 or 2 servings of fruits or vegetables that are high in potassium each day. These include: ?Avocado. ?Banana. ?[place], prune, carrot, or tomato juice. ?Baked potato. [...] magnesium, fish oil, or vitamin B6. Take tfrl-znr-ljccebb and prescription medicines only as told by [...] Casseroles. Pizza. Lasagna. Frozen meals. Potato chips. South African fries. The items listed above may not [...] provider. Document Revised: 04/08/2022 Document Reviewed: 04/08/2022 [employer] Patient Education 2022 [employer]. Follow Up Care 08/19/2022 10:39:03 With:THOR BATISTA, Micki Cedeño, URL Address: [facility] [address] [place] [address]- When:Within 1 Year(s) [facility] [place] 02-25-2022 Hospital Discharg e instructions [...] 07/28/2006 Document Revised: 04/16/2019 Document Reviewed: 06/27/2017 [employer] Patient Education 2020 [employer]. 02/25/2022 15:28:39 Kidney Stones, Wxro-re-Qeuc Kidney Stones Kidney stones are rock-like masses [...] Follow these instructions at home: Medicines Take yyzo-quy-ycucpng and prescription medicines only as told by [...] 01/13/2009 Document Revised: 12/14/2019 Document Reviewed: 12/14/2019 [employer] Patient Education 2019 [employer]. Follow Up Care 11/21/2021 12:48:10 With:Micki ZENG MD, URL Address: [facility] [address], [place] [address]- [phone] When:Within 4 Month(s) Comments:4 mo fu with IVP [facility] 02-25-2022 Evaluation + Plan note Diagnostic Tests PendingPSA Total 02/25/22Creatinine 02/25/22 [facility] Evaluation + Plan note Future Appointments Appointment Date:04/16/2024 11:00:00 AM Scheduled Provider:Micki ZENG MD Location:[facility] Appointment Type:URO Office Visit [facility] Evaluation + Plan note Future Appointments Appointment Date:04/15/2025 11:00:00 AM Scheduled Provider:Micki ZENG MD Location:[facility] Appointment Type:URO Office Visit [facility] Evaluation note No assessment inform ation available [facility] Work Phone: Evaluation note Diagnosis Essential tremor- Primary Essential hypertension (CMS/HCC) Unspecified essential hypertension [facility] No data available for this section [facility] progress note No data available for this section [facility] Chief Complaint and Reason for Visit Chief [...] Marielle Lerma MD Primary Care Provider Active Plan Manager Relationship Specialty Start Date End Date Marielle Lerma MD [address] [place] [address] PCP - General Family Medicine 04/01/24 Plan Manager Relationship Specialty Start Date End Date Marielle Lerma MD [address] [place] [address] PCP - General Family Medicine 04/01/24 Goals [...] section and content) DATE CREATED AUTHOR 11/22/2021 [facility] DATE CREATED AUTHOR AUTHOR'S ORGANIZ ATION 08/13/2022 [facility] DATE CREATED AUTHOR AUTHOR'S ORGANIZ ATION 04/03/2024 [facility] DATE CREATED AUTHOR AUTHOR'S ORGANIZ ATION 04/18/2024 [facility] FOR RECORDS PERTAINING TO PATIENTS WHO ARE [...] BE BASED ON THE PRIMARY CLINICAL RECORDS. [facility] [employer] [facility]. provides no warranty or guarantee of the accuracy or completeness of information in this document.
--- OUTSIDE RECORDS SUMMARY | 2024-08-05 06:52 | XMS_ITS | CCD ---
Author Organization [facility] Care Team Providers Care Orchid Superintendent Name Role Phone MD Marielle Lerma Primary Care Provider [phone] MD Micki Zeng Attending Provider Marielle Lerma Primary Care Physician [phone] THOR, DR SWEET Admitting Unavailable ZENG, DR [...] Unavailable Marielle Lerma MD Primary Care Provider [phone] Allergies Allergy Classification Reported Allergen(s) Allergy Type Date of Onset Reaction(s) Facility (1 source) No Known Medication Allergies; Translations: [No Known Medication Allergies] Propensity to adverse reactions (disorder) [facility] Repository Medications Current Medications Medication Drug [...] by mouth in the morning HYDROcodone-acetami nophen ([place]) 10-325 MG tablet Take 1 tablet by mouth in the morning and 1 tablet before bedtime. 12/29/2023 Active Start: 05-29-2021 take 1 tablet by isa th once daily acetaminophen-hydrocodone 325 mg-5 mg or al tablet 1 tab(s), Oral, Daily pain, Refill(s) 0 Start Date: 05/29/21 Status: Ordered Start: 09-07-2019 End: 10-12-2019 take 1 tablet by mouth every four to six hours Hydrocodone-Acetaminophen ([place]) 5-325 mg tablet Active 1 TAB PO EVERY 4-6 HOURS 40 7 September 28, 2019 1:45pm allopurinol 300 mg oral tablet (6 sources) Xanthine Oxidase Inhibitor Start: 11-27-2023 take 1 tablet by mouth once daily allopurinol 300 mg Tab 300 mg = 1 tab(s), Oral, Daily, # 90 tab(s), Refills(s) 3, Pharmacy: [facility]/pharm[facility] #[id number], 180, cm, 04/11/23 11:56:00 EDT, Height/Length Dosing, 127, kg, 04/11/23 11:56:00 EDT, Weight Dosing Start Date: 03/02/24 Status: Ordered Start: 03-10-2023 take 1 tablet by isa th once daily allopurinol 300 mg Tab 300 mg = 1 tab(s), Oral, Daily, # 90 tab(s), Refills(s) 3, Pharmacy: [facility]/pharmacy #[id number], 180, cm, 08/19/22 9:50:00 EST, Height/Length Dosing, 136.2, kg, 08/19/22 9:50:00 EST, Weight Dosing Start Date: 03/10/23 Status: Ordered Start: 02-25-2022 allopurinol 30 0 mg Tab 150 mg = 0.5 tab(s), Oral, Daily, # 30 tab(s), Refills(s) 11, Pharmacy: [id number], 180, cm, 02/25/22 14:22:00 EDT, Height/Length Dosing, 135, kg, 02/25/22 14:22:00 EDT, Weight Dosing Start Date: 02/25/22 Status: Ordered aspirin 81 mg chewable tablet (4 sources) Platelet Aggregation Inhibitor, Nonsteroidal Anti-inflammatory Drug Start: 04-16-2024 aspirin 81 mg Callie w Tab 162 mg = 2 tab(s), Chewed, BID Start Date: 04/16/24 Status: Ordered Start: 02-10-2019 take 2 tablets by [facility] once daily aspirin 81 mg oral tablet 162 mg = 2 tab(s), Oral, Daily, Refills(s) 0 Start Date: 02/10/19 Status: Ordered Start: 01-02-2018 take 1 tablet by [facility] twice daily Aspirin (Aspir-81) 81 [...] Start: 08-19-2022 take 1 capsule by mo [facility] once daily hydrochlorothiazide 12.5 mg Cap 12.5 mg = 1 cap(s), Oral, Daily, # 90 cap(s), Refills(s) 3, Pharmacy: [facility]/pharm[facility] #[id number], 180, cm, 08/19/22 9:50:00 EST, Height/Length Dosing, 136.2, kg, 08/19/22 9:50:00 EST, Weight Dosing Start Date: 08/19/22 Status: Ordered Start: 02-25-2022 take 1 capsule by [facility] once daily hydrochlorothiazide 12.5 mg Cap 12.5 mg = 1 cap(s), Oral, Daily, # 30 cap(s), Refills(s) 6, Pharmacy: [facility] #[id number], 180, cm, 02/25/22 14:22:00 EDT, Height/Length [...] 10 mg by mouth at bedtime Active Wrfrcady-Wjk-Xf-Lycopen-Lute in (Centrum Silver) 0.4-300-250 mg-mcg-mcg Tablet (1 source) Start: 09-02-2019 take 1 tablet by mouth once daily Tsmosxxv-Xxj-Vi-Lycopen-Lutein (Centrum Silver) 0.4-300-250 mg-mcg-mcg Tablet Active 1 [...] tab(s), Oral, BID, 60 tab(s), Refill(s) 11, [facility]pharm[facility] #[id number], 180, cm, 04/11/23 11:56:00 EDT, Height/Length [...] BID, # 90 tab(s), Refills(s) 3, Pharmacy: [facility]/pharmacy #[id number], 180, cm, 08/19/22 9:50:00 EST, Height/Length [...] Daily, # 30 tab(s), Refills(s) 11, Pharmacy: [facility]/pharmacy #[id number], 180, cm, 02/25/22 14:22:00 EDT, Height/Length Dosing, 135, kg, 02/25/22 14:22:00 EDT, Weight Dosing Start Date: 02/25/22 Status: Ordered tadalafil 20 mg oral tablet (4 sources) Phosphodiesterase 5 Inhibitor Start: 10-23-2021 take 1 tablet by mouth once daily Cialis 20 mg Tab 20 mg = 1 tab(s), Oral, Daily, # 30 tab(s), Refills(s) 6, Pharmacy: [facility]/pharmacy #[id number], 180, cm, 10/22/21 14:56:00 EDT, Height/Length [...] Start: 10-28-2023 take 1 capsule by mo [facility] twice daily tamsulosin 0.4 mg Cap 0.4 mg = 1 cap(s), Oral, BID, # 180 cap(s), Refills(s) 3, Pharmacy: [facility]/pharmacy #[id number], 180, cm, 04/11/23 11:56:00 EDT, Height/Length Dosing, 127, kg, 04/11/23 11:56:00 EDT, Weight Dosing Start Date: 10/28/23 Status: Ordered Start: 04-11-2023 take 1 capsule by [facility] once daily tamsulosin 0.4 mg Cap 0.4 mg = 1 cap(s), Oral, Daily, # 90 cap(s), Refills(s) 3, Pharmacy: [facility]/pharmacy #[id number], 180, cm, 04/11/23 11:56:00 EDT, Height/Length [...] Coronary atherosclerosis; Translations: [Atherosclerotic heart disease of [place] coronary artery without angina pectoris] Onset: 11-05-2021 [...] Onset: 08-01-2022 Chronic Other 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) oil heaterman (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) use of aspirin; Translations: [SKILLED NURSING CURRENT USE OF ASPIRIN] Onset: 08-01-2022 Episodic Other 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) Other buttermaker helper (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) 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; Translations: [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 CURRENT DRUG THERAPY] Onset: 08-01-2022 Episodic Other [...] Onset: 02-18-2022 Episodic Other 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) oil heaterman (current) use of anticoagulants; Translations: [FURNACE AND WASH EQUIPMENT OPERATOR CURRNT USE ANTICOAGULANTS] Onset: 11-05-2021 Episodic Other [...] Micki ZENG MD Where: [facility] [address] [place] [address]- You Need to Schedule the Following Appointments Follow Up with Micki ZENG MD, URL When: Comments: 1 yr w/ ISIDRO Where: [facility] [address], [place] [address]- [phone] Medications What How Much When Instructions Unchanged [...] of urination (more content not included)... Normal [facility] Ambulatory Visit Summary Ambulatory Visit Summary [...] [facility] [address] , [place] [address]- [phone] Medications What How Much When Instructions Unchanged [...] your c (more content not included)... Normal [facility] Urology Office/Clinic Noteon 04-16-2024 Urology Office/Clinic [...] on 02/18/22. Stone analysis - 70% CaOx [place], 30% uric acid. LUIS 04/01/23 - cortical [...] [facility] [address], [place] [address]- [phone] Additional Instructions: 1 yr w/ KUB Patient Education Kidney Stones, Obwk-gh-Pimv IBrenda, personally scribed for Dr. Zeng on [...] data Proced (more content not included)... Normal [facility] Comment on above: Result Comment: Elec tronically Signed By: Micki ZENG MD\.br\Date and Time Signed: 04/16/24 12:29 EDT\.br\Electronically Co-Signed By: Brenda Lopez\.br\Date and Time Co-Signed: 04/16/24 12:28 EDT CBC AUTO DIFFon 07-27-2022 BASO # 0.1 103/ul Normal 0.0-0.1 [facility] Comment on above: Performed By: #### U DINA, LIPID, TSH, BNP, CMP, T7 #### [facility] [address] [address] [address] Suzie Brooks Basophils/100 WBC (Bld) 0.5 % Normal 0.2-2.0 [facility] Comment on above: Performed By: #### U DINA, LIPID, TSH, BNP, CMP, T7 #### [facility] [address] [address] [address] Suzie Brooks EO # 0.4 103/ul Normal 0.0-0.7 [facility] Comment on above: Performed By: #### U DINA, LIPID, TSH, BNP, CMP, T7 #### [facility] [address] [address] [address] Suzie Brooks Eosinophils/100 WBC (Bld) 3.3 % Normal 0.9-7.0 [facility] Comment on above: Performed By: #### U DINA, LIPID, TSH, BNP, CMP, T7 #### [facility] [address] [address] [address] Suzie Brooks Erythrocyte distribution width (RBC) [Ratio] 14.6 % Normal 11.0-15.0 [facility] Comment on above: Performed By: #### U DINA, LIPID, TSH, BNP, CMP, T7 #### [facility] [address] [place] [address] Dr. Suzie Brooks Hematocrit (Bld) [Volume fraction] 42.0 % Normal 42.0-54.0 [facility] Comment on above: Performed By: #### U DINA, LIPID, TSH, BNP, CMP, T7 #### [facility] [address] [place] [address] Dr. Suzie Brooks Hemoglobin (Bld) [Mass/Vol] 14.1 g/dL Normal 14.0-18.0 [facility] Comment on above: Performed By: #### U DINA, LIPID, TSH, BNP, CMP, T7 #### [facility] [address] [place] [address] Dr. Suzie Brooks IG # 0.03 10e3/ul Normal 0.00-0.03 [facility] Comment on above: Performed By: #### U DINA, LIPID, TSH, BNP, CMP, T7 #### [facility] [address] [place] [address] Dr. Suzie Brooks IG % 0.3 % Normal 0.0-0.5 [facility] Comment on above: Performed By: #### U DINA, LIPID, TSH, BNP, CMP, T7 #### [facility] [address] [place] [address] Dr. Suzie Brooks LYMPH # 3.1 103/ul Normal 1.2-3.8 [facility] Comment on above: Performed By: #### U DINA, LIPID, TSH, BNP, CMP, T7 #### [facility] [address] [place] [address] Dr. Suzie Brooks Lymphocytes/100 WBC (Bld) 28.2 % Normal 20.5-60.0 [facility] Comment on above: Performed By: #### U DINA, LIPID, TSH, BNP, CMP, T7 #### [facility] [address] [address] [address] Suzie Brooks MANUAL DIFF REQ NO Normal [facility] Comment on above: Performed By: #### U DINA, LIPID, TSH, BNP, CMP, T7 #### [facility] [address] [address] [address] Suzie Brooks MCH (RBC) [Entitic mass] 28.5 pg Normal 25.9-34.0 [facility] Comment on above: Performed By: #### U DINA, LIPID, TSH, BNP, CMP, T7 #### [facility] [address] [place] [address] Dr. Suzie Brooks MCHC (RBC) [Mass/Vol] 33.6 g/dL Normal 29.9-35.2 [facility] Comment on above: Performed By: #### U DINA, LIPID, TSH, BNP, CMP, T7 #### [facility] [address] [place] [address] Dr. Suzie Brooks MCV (RBC) [Entitic vol] 85.0 fL Normal 80.0-94.0 [facility] Comment on above: Performed By: #### U DINA, LIPID, TSH, BNP, CMP, T7 #### [facility] [address] [place] [address] Dr. Suzie Brooks MONO # 0.8 103/ul Normal 0.3-0.8 [facility] Comment on above: Performed By: #### U DINA, LIPID, TSH, BNP, CMP, T7 #### [facility] [address] [place] [address] Dr. Suzie Brooks Monocytes/100 WBC (Bld) 7.2 % Normal 1.7-12.0 [facility] Comment on above: Performed By: #### U DINA, LIPID, TSH, BNP, CMP, T7 #### [facility] [address] [place] [address] Dr. Suzie Brooks NEUT # 6.7 103/ul Critically high 1.4-6.5 [facility] Comment on above: Performed By: #### U DINA, LIPID, TSH, BNP, CMP, T7 #### [facility] [address] [address] [address] Suzie Brooks Neutrophils/100 WBC (Bld) 60.5 % Normal 43.0-75.0 [facility] Comment on above: Performed By: #### U DINA, LIPID, TSH, BNP, CMP, T7 #### [facility] [address] [address] [address] Suzie Brooks Platelet mean volume (Bld) [Entitic vol] 9.6 fL Normal 9.5-13.5 [facility] Comment on above: Performed By: #### U DINA, LIPID, TSH, BNP, CMP, T7 #### [facility] [address] [place] [address] Dr. Suzie Brooks PLT 266 103/ul Normal 150-450 [facility] Comment on above: Performed By: #### U DINA, LIPID, TSH, BNP, CMP, T7 #### [facility] [address] [place] [address] Dr. Suzie Brooks RBC 4.94 106/ul Normal 4.70-6.10 [facility] Comment on above: Performed By: #### U DINA, LIPID, TSH, BNP, CMP, T7 #### [facility] [address] [place] [address] Dr. Suzie Brooks WBC 11.1 103/ul Critically high 4.0-11.0 [facility] Comment on above: Performed By: #### U DINA, LIPID, TSH, BNP, CMP, T7 #### [facility] [address] [place] [address] Dr. Suzie Brooks PROF 14(COMP METB)on 022 Albumin [Mass/Vol] 3.2 g/dL Critically low 3.4-5.0 [facility] Comment on above: Performed By: #### C VDTBH #### [facility] [address] [place] [address] Dr. Suzie Brooks Albumin/Globulin [Mass ratio] 0.9 {ratio} Normal [facility] Comment on above: Performed By: #### C VDTBH #### [facility] [address] [address] [address] Suzie Brooks ALP [Catalytic activity/Vol] 60 U/L Normal 46-116 [facility] Comment on above: Performed By: #### C VDTBH #### [facility] [address] [address] [address] Suzie Brooks ALT [Catalytic activity/Vol] 27 U/L Normal 16-63 [facility] Comment on above: Performed By: #### C VDTBH #### [facility] [address] [address] [address] Suzie Brooks Anion gap [Moles/Vol] 10.4 mmol/L Normal [facility] Comment on above: Performed By: #### C VDTBH #### [facility] [address] [place] [address] Dr. Suzie Brooks AST [Catalytic activity/Vol] 23 U/L Normal 15-37 [facility] Comment on above: Performed By: #### C VDTBH #### [facility] [address] [address] [address] Suzie Brooks Bilirubin [Mass/Vol] 0.4 mg/dL Normal 0.2-1.0 [facility] Comment on above: Performed By: #### C VDTBH #### [facility] [address] [place] [address] Dr. Suzie Brooks Calcium [Mass/Vol] 8.4 mg/dL Critically low 8.5-10.1 [facility] Comment on above: Performed By: #### C VDTBH #### [facility] [address] [place] [address] Dr. Suzie Brooks Chloride [Moles/Vol] 104 mmol/L Normal 98-107 [facility] Comment on above: Performed By: #### C VDTBH #### [facility] [address] [address] [address] Suzie Brooks CO2 [Moles/Vol] 26.1 mmol/L Normal 21.0-32.0 [facility] Comment on above: Performed By: #### C VDTBH #### [facility] [address] [address] [address] Suzie Brooks Creatinine [Mass/Vol] 0.90 mg/dL Normal 0.70-1.30 [facility] Comment on above: Performed By: #### C VDTBH #### [facility] [address] [place] [address] Dr. Suzie Brooks EGFR-AF MAURITIAN >60 Normal >=60 [facility] Comment on above: Performed By: #### C VDTBH #### [facility] [address] [address] [address] Suzie Brooks EGFR-NON AF MAURITIAN >60 Normal >=60 [facility] Comment on above: Performed By: #### C VDTBH #### [facility] [address] [place] [address] Dr. Suzie Brooks Globulin (S) [Mass/Vol] 3.4 g/dL Normal [facility] Comment on above: Performed By: #### C VDTBH #### [facility] [address] [place] [address] Dr. Suzie Brooks Glucose [Mass/Vol] 111 mg/dL Critically high 74-106 [facility] Comment on above: Performed By: #### C VDTBH #### [facility] [address] [place] [address] Dr. Suzie Brooks Potassium [Moles/Vol] 3.5 mmol/L Normal 3.5-5.1 [facility] Comment on above: Performed By: #### C VDTBH #### [facility] [address] [place] [address] Dr. Suzie Brooks Protein [Mass/Vol] 6.6 g/dL Normal 6.4-8.2 [facility] Comment on above: Performed By: #### C VDTBH #### [facility] [address] [place] [address] Dr. Suzie Brooks Sodium [Moles/Vol] 137 mmol/L Normal 136-145 [facility] Comment on above: Performed By: #### C VDTBH #### [facility] [address] [place] [address] Dr. Suzie Brooks Urea nitrogen [Mass/Vol] 13.0 mg/dL Normal 7.0-18.0 [facility] Comment on above: Performed By: #### C VDTBH #### [facility] [address] [place] [address] Dr. Suzie Brooks Urea nitrogen/Creatinine [Mass ratio] 14.4 mg/mg Normal [facility] Comment on above: Performed By: #### C VDTBH #### [facility] [address] [place] [address] Dr. Suzie Brooks BNPon 07-26-2022 Natriuretic peptide B (Bld) [Mass/Vol] 118.0 pg/mL Normal <=900.0 [facility] Comment on above: Performed By: #### U DINA, LIPID, TSH, BNP, CMP, T7 #### [facility] [address] [place] [address] Dr. Suzie Brooks CARDIAC MJ 3-6on 2 CK [Catalytic activity/Vol] 240 U/L Normal 39-308 [facility] Comment on above: Performed By: #### U DINA, LIPID, TSH, BNP, CMP, T7 #### [facility] [address] [place] [address] Dr. Suzie Brooks CK.MB [Mass/Vol] 3.43 ng/mL Normal <=3.60 [facility] Comment on above: Performed By: #### U DINA, LIPID, TSH, BNP, CMP, T7 #### [facility] [address] [place] [address] Dr. Suzie Brooks HSTROP 8.6 pg/mL Normal 4.0-76.1 [facility] Comment on above: Result Comment: CUT- OFF POINTS HAVE BEEN ESTABLISHED BASED ON THE FOURTH UNIVERSAL DEFINITIONS OF MYOCARDIAL INFARCTION. THE UPPER REFERENCE LIMIT (URL) OF TROPONIN, DEFINED THE 99TH PERCENTILE OF cTnI DISTRIBUTION IN A REFERENCE POPULATION, HAS BEEN CONFIRMED THE DECISION THRESHOLD FOR DC DIAGNOSIS. Performed By: #### U DINA, LIPID, TSH, BNP, CMP, T7 #### [facility] [address] [address] [address] Suzie Brooks CK [Catalytic activity/Vol] 239 U/L Normal 39-308 [facility] Comment on above: Performed By: #### M AG24 #### [facility] [address] [place] [address] Dr. Suzie Brooks CK.MB [Mass/Vol] 2.93 ng/mL Normal <=3.60 [facility] Comment on above: Performed By: #### M AG24 #### [facility] [address] [place] [address] Dr. Suzie Brooks HSTROP 10.4 pg/mL Normal 4.0-76.1 [facility] Comment on above: Result Comment: CUT- OFF POINTS HAVE BEEN ESTABLISHED BASED ON THE FOURTH UNIVERSAL DEFINITIONS OF MYOCARDIAL INFARCTION. THE UPPER REFERENCE LIMIT (URL) OF TROPONIN, DEFINED THE 99TH PERCENTILE OF cTnI DISTRIBUTION IN A REFERENCE POPULATION, HAS BEEN CONFIRMED THE DECISION THRESHOLD FOR DC DIAGNOSIS. Performed By: #### M AG24 #### [facility] [address] [place] [address] Dr. Suzie Brooks CARDIAC MJ ADMITon 07-26- 022 CK [Catalytic activity/Vol] 234 U/L Normal 39-308 [facility] Comment on above: Performed By: #### O X24HR #### [facility] [address] [place] [address] Dr. Suzie Brooks CK.MB [Mass/Vol] 3.37 ng/mL Normal <=3.60 [facility] Comment on above: Performed By: #### O X24HR #### [facility] [address] [place] [address] Dr. Suzie Brooks HSTROP 9.0 pg/mL Normal 4.0-76.1 [facility] Comment on above: Result Comment: CUT- OFF POINTS HAVE BEEN ESTABLISHED BASED ON THE FOURTH UNIVERSAL DEFINITIONS OF MYOCARDIAL INFARCTION. THE UPPER REFERENCE LIMIT (URL) OF TROPONIN, DEFINED THE 99TH PERCENTILE OF cTnI DISTRIBUTION IN A REFERENCE POPULATION, HAS BEEN CONFIRMED THE DECISION THRESHOLD FOR DC DIAGNOSIS. Performed By: #### O X24HR #### [facility] [address] [address] [address] Suzie Brooks EDIE 85 ng/mL Normal 16-96 [facility] Comment on above: Performed By: #### O X24HR #### [facility] [address] [place] [address] Dr. Suzie Brooks CBC AUTO DIFFon 07-26-2022 BASO # 0.1 103/ul Normal 0.0-0.1 [facility] Comment on above: Performed By: #### U DINA, LIPID, TSH, BNP, CMP, T7 #### [facility] [address] [place] [address] Dr. Suzie Brooks Basophils/100 WBC (Bld) 0.4 % Normal 0.2-2.0 [facility] Comment on above: Performed By: #### U DINA, LIPID, TSH, BNP, CMP, T7 #### [facility] [address] [place] [address] Dr. Suzie Brooks EO # 0.3 103/ul Normal 0.0-0.7 [facility] Comment on above: Performed By: #### U DINA, LIPID, TSH, BNP, CMP, T7 #### [facility] [address] [place] [address] Dr. Suzie Brooks Eosinophils/100 WBC (Bld) 2.5 % Normal 0.9-7.0 [facility] Comment on above: Performed By: #### U DINA, LIPID, TSH, BNP, CMP, T7 #### [facility] [address] [place] [address] Dr. Suzie Brooks Erythrocyte distribution width (RBC) [Ratio] 14.4 % Normal 11.0-15.0 [facility] Comment on above: Performed By: #### U DINA, LIPID, TSH, BNP, CMP, T7 #### [facility] [address] [place] [address] Dr. Suzie Brooks Hematocrit (Bld) [Volume fraction] 46.0 % Normal 42.0-54.0 [facility] Comment on above: Performed By: #### U DINA, LIPID, TSH, BNP, CMP, T7 #### [facility] [address] [place] [address] Dr. Suzie Brooks Hemoglobin (Bld) [Mass/Vol] 15.6 g/dL Normal 14.0-18.0 [facility] Comment on above: Performed By: #### U DINA, LIPID, TSH, BNP, CMP, T7 #### [facility] [address] [address] [address] Suzie Brooks IG # 0.07 10e3/ul Critically high 0.00-0.03 [facility] Comment on above: Performed By: #### U DINA, LIPID, TSH, BNP, CMP, T7 #### [facility] [address] [address] [address] Suzie Brooks IG % 0.6 % Critically high 0.0-0.5 [facility] Comment on above: Performed By: #### U DINA, LIPID, TSH, BNP, CMP, T7 #### [facility] [address] [place] [address] Dr. Suzie Brooks LYMPH # 2.9 103/ul Normal 1.2-3.8 [facility] Comment on above: Performed By: #### U DINA, LIPID, TSH, BNP, CMP, T7 #### [facility] [address] [address] [address] Suzie Brooks Lymphocytes/100 WBC (Bld) 24.2 % Normal 20.5-60.0 [facility] Comment on above: Performed By: #### U DINA, LIPID, TSH, BNP, CMP, T7 #### [facility] [address] [place] [address] Dr. Suzie Brooks MANUAL DIFF REQ NO Normal [facility] Comment on above: Performed By: #### U DINA, LIPID, TSH, BNP, CMP, T7 #### [facility] [address] [address] [address] Suzie Brooks MCH (RBC) [Entitic mass] 28.6 pg Normal 25.9-34.0 [facility] Comment on above: Performed By: #### U DINA, LIPID, TSH, BNP, CMP, T7 #### [facility] [address] [place] [address] Dr. Suzie Brooks MCHC (RBC) [Mass/Vol] 33.9 g/dL Normal 29.9-35.2 [facility] Comment on above: Performed By: #### U DINA, LIPID, TSH, BNP, CMP, T7 #### [facility] [address] [place] [address] Dr. Suzie Brooks MCV (RBC) [Entitic vol] 84.4 fL Normal 80.0-94.0 [facility] Comment on above: Performed By: #### U DINA, LIPID, TSH, BNP, CMP, T7 #### [facility] [address] [place] [address] Dr. Suzie Brooks MONO # 0.8 103/ul Normal 0.3-0.8 [facility] Comment on above: Performed By: #### U DINA, LIPID, TSH, BNP, CMP, T7 #### [facility] [address] [place] [address] Dr. Suzie Brooks Monocytes/100 WBC (Bld) 6.7 % Normal 1.7-12.0 [facility] Comment on above: Performed By: #### U DINA, LIPID, TSH, BNP, CMP, T7 #### [facility] [address] [place] [address] Dr. Suzie Brooks NEUT # 7.8 103/ul Critically high 1.4-6.5 [facility] Comment on above: Performed By: #### U DINA, LIPID, TSH, BNP, CMP, T7 #### [facility] [address] [place] [address] Dr. Suzie Brooks Neutrophils/100 WBC (Bld) 65.6 % Normal 43.0-75.0 [facility] Comment on above: Performed By: #### U DINA, LIPID, TSH, BNP, CMP, T7 #### [facility] [address] [place] [address] Dr. Suzie Brooks Platelet mean volume (Bld) [Entitic vol] 9.7 fL Normal 9.5-13.5 [facility] Comment on above: Performed By: #### U DINA, LIPID, TSH, BNP, CMP, T7 #### [facility] [address] [place], [place] [address] Dr. Suzie Brooks PLT 289 103/ul Normal 150-450 [facility] Comment on above: Performed By: #### U DINA, LIPID, TSH, BNP, CMP, T7 #### [facility] [address] [address] [address] Suzie Brooks RBC 5.45 106/ul Normal 4.70-6.10 [facility] Comment on above: Performed By: #### U DINA, LIPID, TSH, BNP, CMP, T7 #### [facility] [address], [place] [address] Dr. Suzie Brooks WBC 11.9 103/ul Critically high 4.0-11.0 The [facility] Comment on above: Performed By: #### U DINA, LIPID, TSH, BNP, CMP, T7 #### [facility] [address], [place] [address] Dr. Suzie Brooks CTA CHEST WO W [...] BEHZAD CARRASQUILLO Date: 2022-07-26 11:59 Normal [facility] Covid-19 PCR (CVDTBH)on 07-11 SARS-CoV-2 (COVID-19) RNA SUKHJINDER+probe Ql (Unsp spec) Not detected Normal NOT DETECTED [facility] Comment on above: Result Comment: [...] for this test is supported by the [employer] Operator of Health and Human Service's declaration that [...] DINA, LIPID, TSH, BNP, CMP, T7 #### [facility] [address] [place] [address] Dr. Suzie Brooks D-DIMERon 07-26-2022 D-DIMER 0.88 mg/L FEU Critically high <=0.59 The [facility] Comment on above: Performed By: #### C VDTB #### [facility] [address] [place] [address] Dr. Suzie Brooks D-DIMER COMMENTS SEE BELOW Normal The [facility] Comment on above: Result Comment: Incr [...] hospitalization. Performed By: #### C VDTB #### [facility] [address] [place] [address] Dr. Suzie Brooks ECHOCARDIO M/2D COMPLETEon 1 09-26-2021 ECHOCARDIO M/2D COMPLETE Patient: RIZWAN APARICIO Exam Date: 07/26/2022 : 1950 Gender:M Ordering : DR MARIELLE LERMA . Admission #: [id number] Family : Order #: [id number] CLICK HERE TO VIEW EXAM ECHOCARDIOGRAM REPORT [...] Rios M.D. on 07/26/2022 at 16:22 Normal [facility] PROF 14(COMP METB)on 022 Albumin [Mass/Vol] 3.6 g/dL Normal 3.4-5.0 [facility] Comment on above: Performed By: #### U DINA, LIPID, TSH, BNP, CMP, T7 #### [facility] [address] [address] [address] Suzie Brooks Albumin/Globulin [Mass ratio] 0.9 {ratio} Normal [facility] Comment on above: Performed By: #### U DINA, LIPID, TSH, BNP, CMP, T7 #### [facility] [address] [address] [address] Suzie Brooks ALP [Catalytic activity/Vol] 70 U/L Normal 46-116 [facility] Comment on above: Performed By: #### U DINA, LIPID, TSH, BNP, CMP, T7 #### [facility] [address], [place] [address] Dr. Suzie Brooks ALT [Catalytic activity/Vol] 30 U/L Normal 16-63 The [facility] Comment on above: Performed By: #### U DINA, LIPID, TSH, BNP, CMP, T7 #### [facility] [address] [place] [address] Dr. Suzie Brooks Anion gap [Moles/Vol] 9.2 mmol/L Normal [facility] Comment on above: Performed By: #### U DINA, LIPID, TSH, BNP, CMP, T7 #### [facility] [address] [place] [address] Dr. Suzie Brooks AST [Catalytic activity/Vol] 29 U/L Normal 15-37 [facility] Comment on above: Performed By: #### U DINA, LIPID, TSH, BNP, CMP, T7 #### [facility] [address] [place] [address] Dr. Suzie Brooks Bilirubin [Mass/Vol] 0.5 mg/dL Normal 0.2-1.0 [facility] Comment on above: Performed By: #### U DINA, LIPID, TSH, BNP, CMP, T7 #### [facility] [address] [place] [address] Dr. Suzie Brooks Calcium [Mass/Vol] 8.8 mg/dL Normal 8.5-10.1 [facility] Comment on above: Performed By: #### U DINA, LIPID, TSH, BNP, CMP, T7 #### [facility] [address] [place] [address] Dr. Suzie Brooks Chloride [Moles/Vol] 102 mmol/L Normal 98-107 [facility] Comment on above: Performed By: #### U DINA, LIPID, TSH, BNP, CMP, T7 #### [facility] [address] [place] [address] Dr. Suzie Brooks CO2 [Moles/Vol] 27.2 mmol/L Normal 21.0-32.0 The [facility] Comment on above: Performed By: #### U DINA, LIPID, TSH, BNP, CMP, T7 #### [facility] [address] [place] [address] Dr. Suzie Brooks Creatinine [Mass/Vol] 0.99 mg/dL Normal 0.70-1.30 The [facility] Comment on above: Performed By: #### U DINA, LIPID, TSH, BNP, CMP, T7 #### [facility] [address] [address] [address] Suzie Brooks EGFR-AF MAURITIAN >60 Normal >=60 [facility] Comment on above: Performed By: #### U DINA, LIPID, TSH, BNP, CMP, T7 #### [facility] [address] [address] [address] Suzie Brooks EGFR-NON AF MAURITIAN >60 Normal >=60 [facility] Comment on above: Performed By: #### U DINA, LIPID, TSH, BNP, CMP, T7 #### [facility] [address] [place] [address] Dr. Suzie Brooks Globulin (S) [Mass/Vol] 3.9 g/dL Normal [facility] Comment on above: Performed By: #### U DINA, LIPID, TSH, BNP, CMP, T7 #### [facility] [address] [address] [address] Suzie Brooks Glucose [Mass/Vol] 125 mg/dL Critically high 74-106 T [facility] Comment on above: Performed By: #### U DINA, LIPID, TSH, BNP, CMP, T7 #### [facility] [address] [place] [address] Dr. Suzie Brooks Potassium [Moles/Vol] 3.4 mmol/L Critically low 3.5-5.1 [facility] Comment on above: Performed By: #### U DINA, LIPID, TSH, BNP, CMP, T7 #### [facility] [address] [place] [address] Dr. Suzie Brooks Protein [Mass/Vol] 7.5 g/dL Normal 6.4-8.2 [facility] Comment on above: Performed By: #### U DINA, LIPID, TSH, BNP, CMP, T7 #### [facility] [address] [place] [address] Dr. Suzie Brooks Sodium [Moles/Vol] 135 mmol/L Critically low 136-145 [facility] Comment on above: Performed By: #### U DINA, LIPID, TSH, BNP, CMP, T7 #### [facility] [address] [place] [address] Dr. Suzie Brooks Urea nitrogen [Mass/Vol] 15.0 mg/dL Normal 7.0-18.0 [facility] Comment on above: Performed By: #### U DINA, LIPID, TSH, BNP, CMP, T7 #### [facility] [address] [place] [address] Dr. Suzie Brooks Urea nitrogen/Creatinine [Mass ratio] 15.2 mg/mg Normal [facility] Comment on above: Performed By: #### U DINA, LIPID, TSH, BNP, CMP, T7 #### [facility] [address] [place] [address] Dr. Suzie Brooks PROTIMEon 07-26-2022 INR Coag (PPP) [Relative time] 0.95 {INR} Normal [facility] Comment on above: Performed By: #### C VDTBH #### [facility] [address] [place] [address] Dr. Suzie Brooks INR GUIDELINES SEE BELOW Normal The [facility] Comment on above: Result Comment: TOMMY RED INR: 2.0 - 3.0 CONDITIONS NOT LISTED BELOW 2.5 - 3.5 FOR PROSTHETIC HEART VALVE REPLACEMENT 2.5 - 3.5 RECURRENT THROMBOSIS Performed By: #### C VDTBH #### [facility] [address] [place] [address] Dr. Suzie Brooks PT Coag (PPP) [Time] 10.3 s Normal 9.0-11.6 [facility] Comment on above: Performed By: #### C VDTBH #### [facility] [address] [place] [address] Dr. Suzie Brooks PTTon 07-26-2022 aPTT Coag (Bld) [Time] 28.2 s Normal 22.3-36.2 [facility] Comment on above: Performed By: #### C VDTBH #### [facility] [address] [place] [address] Dr. Suzie Brooks TSHon 07-26-2022 TSH 2.000 uIU/mL Normal 0.358-3.740 [facility] Comment on above: Performed By: #### O X24HR #### [facility] [id number] Suzie Brooks XR CHEST 1 Von [...] BEHZAD CARRASQUILLO Date: 2022-07-26 10:51 Normal [facility] CREATININEon 07-18-2022 Creatinine [Mass/Vol] 0.93 mg/dL Normal 0.70-1.30 [facility] Comment on above: Performed By: #### U DINA, LIPID, TSH, BNP, CMP, T7 #### [facility] [id number] Suzie Brooks EGFR-AF MAURITIAN >60 Normal >=60 [facility] Comment on above: Performed By: #### U DINA, LIPID, TSH, BNP, CMP, T7 #### [facility] [id number] Suzie Brooks EGFR-NON AF MAURITIAN >60 Normal >=60 [facility] Comment on above: Performed By: #### U DINA, LIPID, TSH, BNP, CMP, T7 #### [facility] [address], [place] [address] Dr. Suzie Brooks XR IVPon 07-18-2022 XR IVP EXAMINATION: XR IVP HISTORY: Kidney stone COMPARISON: XR KUB 11/21/2021, CT abdomen pelvis 02/16/2022 TECHNIQUE: After obtaining patient consent a tourist information assistant image was obtained followed by injection of [...] BEHZAD CARRASQUILLO Date: 2022-07-18 11:50 Normal [facility] INSULINon 05-16-2022 Insulin 59.0 uIU/mL Critically high 2.6-24.9 The [facility] Comment on above: Performed By: #### U DINA, LIPID, TSH, BNP, CMP, T7 #### [facility] [address] [place] [address] Dr. Suzie Brooks BNPon 05-15-2022 Natriuretic peptide B (Bld) [Mass/Vol] 81.0 pg/mL Normal <=900.0 [facility] Comment on above: Performed By: #### U DINA, LIPID, TSH, BNP, CMP, T7 #### [facility] [address] [address] [address] Suzie Brooks CBC AUTO DIFFon 05-15-2022 BASO # 0.1 103/ul Normal 0.0-0.1 [facility] Comment on above: Performed By: #### C VDTBH #### [facility] [address] [place] [address] Dr. Suzie Brooks Basophils/100 WBC (Bld) 0.6 % Normal 0.2-2.0 [facility] Comment on above: Performed By: #### C VDTBH #### [facility] [address] [place] [address] Dr. Suzie Brooks EO # 0.3 103/ul Normal 0.0-0.7 [facility] Comment on above: Performed By: #### C VDTBH #### [facility] [address] [place] [address] Dr. Suzie Brooks Eosinophils/100 WBC (Bld) 2.9 % Normal 0.9-7.0 [facility] Comment on above: Performed By: #### C VDTBH #### [facility] [address] [place] [address] Dr. Suzie Brooks Erythrocyte distribution width (RBC) [Ratio] 14.1 % Normal 11.0-15.0 [facility] Comment on above: Performed By: #### C VDTBH #### [facility] [address] [place] [address] Dr. Suzie Brooks Hematocrit (Bld) [Volume fraction] 46.7 % Normal 42.0-54.0 [facility] Comment on above: Performed By: #### C VDTBH #### [facility] [address] [place] [address] Dr. Suzie Brooks Hemoglobin (Bld) [Mass/Vol] 15.4 g/dL Normal 14.0-18.0 [facility] Comment on above: Performed By: #### C VDTBH #### [facility] [address] [place] [address] Dr. Suzie Brooks IG # 0.03 10e3/ul Normal 0.00-0.03 [facility] Comment on above: Performed By: #### C VDTBH #### [facility] [address] [place] [address] Dr. Suzie Brooks IG % 0.3 % Normal 0.0-0.5 [facility] Comment on above: Performed By: #### C VDTBH #### [facility] [address] [place] [address] Dr. Suzie Brooks LYMPH # 2.6 103/ul Normal 1.2-3.8 [facility] Comment on above: Performed By: #### C VDTBH #### [facility] [address] [place] [address] Dr. Suzie Brooks Lymphocytes/100 WBC (Bld) 25.1 % Normal 20.5-60.0 [facility] Comment on above: Performed By: #### C VDTBH #### [facility] [address] [place] [address] Dr. Suzie Brooks MANUAL DIFF REQ NO Normal [facility] Comment on above: Performed By: #### C VDTBH #### [facility] [address] [place] [address] Dr. Suzie Brooks MCH (RBC) [Entitic mass] 28.6 pg Normal 25.9-34.0 [facility] Comment on above: Performed By: #### C VDTBH #### [facility] [address] [place] [address] Dr. Suzie Brooks MCHC (RBC) [Mass/Vol] 33.0 g/dL Normal 29.9-35.2 [facility] Comment on above: Performed By: #### C VDTBH #### [facility] [address] [place] [address] Dr. Suzie Brooks MCV (RBC) [Entitic vol] 86.8 fL Normal 80.0-94.0 [facility] Comment on above: Performed By: #### C VDTBH #### [facility] [address] [place] [address] Dr. Suzie Brooks MONO # 0.7 103/ul Normal 0.3-0.8 [facility] Comment on above: Performed By: #### C VDTBH #### [facility] [address] [place] [address] Dr. Suzie Brooks Monocytes/100 WBC (Bld) 6.8 % Normal 1.7-12.0 [facility] Comment on above: Performed By: #### C VDTBH #### [facility] [address] [place] [address] Dr. Suzie Brooks NEUT # 6.5 103/ul Normal 1.4-6.5 [facility] Comment on above: Performed By: #### C VDTBH #### [facility] [address] [address] [address] Suzie Brooks Neutrophils/100 WBC (Bld) 64.3 % Normal 43.0-75.0 [facility] Comment on above: Performed By: #### C VDTBH #### [facility] [address] [address] [address] Suzie Brooks Platelet mean volume (Bld) [Entitic vol] 9.5 fL Normal 9.5-13.5 [facility] Comment on above: Performed By: #### C VDTBH #### [facility] [address] [place] [address] Dr. Suzie Brooks PLT 273 103/ul Normal 150-450 [facility] Comment on above: Performed By: #### C VDTBH #### [facility] [address] [place] [address] Dr. Suzie Brooks RBC 5.38 106/ul Normal 4.70-6.10 [facility] Comment on above: Performed By: #### C VDTBH #### [facility] [address] [place] [address] Dr. Suzie Brooks WBC 10.2 103/ul Normal 4.0-11.0 [facility] Comment on above: Performed By: #### C VDTBH #### [facility] [address] [place] [address] Dr. Suzie Brooks FREE THYROXINE INDEX T7on FTI 2.23 Normal 1.30-4.50 [facility] Comment on above: Performed By: #### U DINA, LIPID, TSH, BNP, CMP, T7 #### [facility] [address] [place] [address] Dr. Suzie Brooks T3U 36.0 % Normal 33.0-40.0 [facility] Comment on above: Performed By: #### U DINA, LIPID, TSH, BNP, CMP, T7 #### [facility] [address] [place] [address] Dr. Suzie Brooks T4 [Mass/Vol] 6.20 ug/dL Normal 4.50-12.10 [facility] Comment on above: Performed By: #### U DINA, LIPID, TSH, BNP, CMP, T7 #### [facility] [address] [address] [address] Suzie Brooks GLYCOHEMOGLOBIN A1Con 2021 ADA RECOMMENDATION SEE BELOW Normal [facility] Comment on above: Result Comment: ADA RECOMMENDED LIMIT 4.0 - 6.0 ADA THERAPEUTIC TARGET < 7.0 ACTION SUGGESTED > 7.0 Performed By: #### U DINA, LIPID, TSH, BNP, CMP, T7 #### [facility] [address] [address] [address] Suzie Brooks Glucose [Mass/Vol] 111 mg/dL Normal [facility] Comment on above: Performed By: #### U DINA, LIPID, TSH, BNP, CMP, T7 #### [facility] [address] [address] [address] Suzie Brooks HbA1c (Bld) [Mass fraction] 5.5 % Normal 4.5-6.2 [facility] Comment on above: Performed By: #### U DINA, LIPID, TSH, BNP, CMP, T7 #### [facility] [address] [address] [address] Suzie Brooks LIPID PROFILEon 05-15-2022 CHOL-HDL RATIO NORM SEE BELOW Normal [facility] Comment on above: Result Comment: 3.3 - 4.4 LOW RISK 4.4 - 7.1 AVERAGE RISK 7.1 - 11.0 MODERATE RISK >11.0 HIGH RISK Performed By: #### U DINA, LIPID, TSH, BNP, CMP, T7 #### [facility] [address] [address] [address] Suzie Brooks Cholesterol [Mass/Vol] 136 mg/dL Normal <=200 [facility] Comment on above: Performed By: #### U DINA, LIPID, TSH, BNP, CMP, T7 #### [facility] [address] [address] [address] Suzie Brooks Cholesterol in HDL [Mass/Vol] 34 mg/dL Critically low 40-60 [facility] Comment on above: Performed By: #### U DINA, LIPID, TSH, BNP, CMP, T7 #### [facility] [address] [address] [address] Suzie Brooks Cholesterol in LDL [Mass/Vol] 49.8 mg/dL Normal [facility] Comment on above: Performed By: #### U DINA, LIPID, TSH, BNP, CMP, T7 #### [facility] [address] [address] [address] Suzie Brooks Cholesterol.total/Ch olesterol in HDL [Mass ratio] 4.0 {ratio} Normal [facility] Comment on above: Performed By: #### U DINA, LIPID, TSH, BNP, CMP, T7 #### [facility] [address] [address] [address] Suzie Brooks HDL NORMAL > or = 60 mg/dl - LO W CARDIOVASCULAR RISK <40 mg/dl - HIGH CARDIOVASCULAR RISK Normal [facility] Comment on above: Performed By: #### U DINA, LIPID, TSH, BNP, CMP, T7 #### [facility] [address] [address] [address] Suzie Brooks LDL CALC NORMAL SEE BELOW Normal [facility] Comment on above: Result Comment: <100 mg/dl OPTIMAL 100 - 129 mg/dl NEAR OR ABOVE OPTIMAL 130 - 159 mg/dl BORDERLINE HIGH 160 - 189 mg/dl HIGH >190 mg/dl VERY HIGH Performed By: #### U DINA, LIPID, TSH, BNP, CMP, T7 #### [facility] [address] [address] [address] Suzie Brooks Triglyceride [Mass/Vol] 261 mg/dL Critically high <=150 [facility] Comment on above: Performed By: #### U DINA, LIPID, TSH, BNP, CMP, T7 #### [facility] [address] [address] [address] Suzie Brooks VLDL CALC 52.2 mg/dL Normal [facility] Comment on above: Performed By: #### U DINA, LIPID, TSH, BNP, CMP, T7 #### [facility] [address] [address] [address] Suzie Brooks PROF 14(COMP METB)on 022 Albumin [Mass/Vol] 3.6 g/dL Normal 3.4-5.0 [facility] Comment on above: Performed By: #### U DINA, LIPID, TSH, BNP, CMP, T7 #### [facility] [address] [place] [address] Dr. Suzie Brooks Albumin/Globulin [Mass ratio] 0.9 {ratio} Normal [facility] Comment on above: Performed By: #### U DINA, LIPID, TSH, BNP, CMP, T7 #### [facility] [address] [place] [address] Dr. Suzie Brooks ALP [Catalytic activity/Vol] 60 U/L Normal 46-116 [facility] Comment on above: Performed By: #### U DINA, LIPID, TSH, BNP, CMP, T7 #### [facility] [address] [place] [address] Dr. Suzie Brooks ALT [Catalytic activity/Vol] 36 U/L Normal 16-63 [facility] Comment on above: Performed By: #### U DINA, LIPID, TSH, BNP, CMP, T7 #### [facility] [address] [place] [address] Dr. Suzie Brooks Anion gap [Moles/Vol] 11.7 mmol/L Normal [facility] Comment on above: Performed By: #### U DINA, LIPID, TSH, BNP, CMP, T7 #### [facility] [address] [place] [address] Dr. Suzie Brooks AST [Catalytic activity/Vol] 28 U/L Normal 15-37 [facility] Comment on above: Performed By: #### U DINA, LIPID, TSH, BNP, CMP, T7 #### [facility] [address] [address] [address] Suzie Brooks Bilirubin [Mass/Vol] 0.6 mg/dL Normal 0.2-1.0 [facility] Comment on above: Performed By: #### U DINA, LIPID, TSH, BNP, CMP, T7 #### [facility] [address] [address] [address] Suzie Brooks Calcium [Mass/Vol] 8.8 mg/dL Normal 8.5-10.1 [facility] Comment on above: Performed By: #### U DINA, LIPID, TSH, BNP, CMP, T7 #### [facility] [address] [address] [address] Suzie Brooks Chloride [Moles/Vol] 102 mmol/L Normal 98-107 [facility] Comment on above: Performed By: #### U DINA, LIPID, TSH, BNP, CMP, T7 #### [facility] [address] [address] [address] Suzie Brooks CO2 [Moles/Vol] 27.9 mmol/L Normal 21.0-32.0 [facility] Comment on above: Performed By: #### U DINA, LIPID, TSH, BNP, CMP, T7 #### [facility] [address] [place] [address] Dr. Suzie Brooks Creatinine [Mass/Vol] 0.98 mg/dL Normal 0.70-1.30 [facility] Comment on above: Performed By: #### U DINA, LIPID, TSH, BNP, CMP, T7 #### [facility] [address] [place] [address] Dr. Suzie Brooks EGFR-AF MAURITIAN >60 Normal >=60 [facility] Comment on above: Performed By: #### U DINA, LIPID, TSH, BNP, CMP, T7 #### [facility] [address] [place] [address] Dr. Suzie Brooks EGFR-NON AF MAURITIAN >60 Normal >=60 [facility] Comment on above: Performed By: #### U DINA, LIPID, TSH, BNP, CMP, T7 #### [facility] [address] [address] [address] Suzie Brooks Globulin (S) [Mass/Vol] 3.8 g/dL Normal [facility] Comment on above: Performed By: #### U DINA, LIPID, TSH, BNP, CMP, T7 #### [facility] [address] [address] [address] Suzie Brooks Glucose [Mass/Vol] 107 mg/dL Critically high 74-106 [facility] Comment on above: Performed By: #### U DINA, LIPID, TSH, BNP, CMP, T7 #### [facility] [address] [address] [address] Suzie Brooks Potassium [Moles/Vol] 3.6 mmol/L Normal 3.5-5.1 [facility] Comment on above: Performed By: #### U DINA, LIPID, TSH, BNP, CMP, T7 #### [facility] [address] [place] [address] Dr. Suzie Brooks Protein [Mass/Vol] 7.4 g/dL Normal 6.4-8.2 [facility] Comment on above: Performed By: #### U DINA, LIPID, TSH, BNP, CMP, T7 #### [facility] [address] [place] [address] Dr. Suzie Brooks Sodium [Moles/Vol] 138 mmol/L Normal 136-145 [facility] Comment on above: Performed By: #### U DINA, LIPID, TSH, BNP, CMP, T7 #### [facility] [address] [place] [address] Dr. Suzie Brooks Urea nitrogen [Mass/Vol] 12.0 mg/dL Normal 7.0-18.0 [facility] Comment on above: Performed By: #### U DINA, LIPID, TSH, BNP, CMP, T7 #### [facility] [address] [place] [address] Dr. Suzie Brooks Urea nitrogen/Creatinine [Mass ratio] 12.2 mg/mg Normal [facility] Comment on above: Performed By: #### U DINA, LIPID, TSH, BNP, CMP, T7 #### [facility] [address] [place] [address] Dr. Suzie Brooks TSHon 05-15-2022 TSH 2.356 uIU/mL Normal 0.358-3.740 [facility] Comment on above: Performed By: #### U DINA, LIPID, TSH, BNP, CMP, T7 #### [facility] [address] [place] [address] Dr. Suzie Brooks URIC ACID SERUMon 05-15-2022 Urate [Mass/Vol] 5.2 mg/dL Normal 3.5-7.2 [facility] Comment on above: Performed By: #### U DINA, LIPID, TSH, BNP, CMP, T7 #### [facility] [address] [address] [address] Suzie Brooks CALCULI, URINARYon 2 2,8 Dihydroxyadenine Normal [facility] Comment on above: Performed By: #### U DINA, LIPID, TSH, BNP, CMP, T7 #### [facility] [address] [address] [address] Suzie Brooks Ammonium Acid Urate Normal [facility] Comment on above: Performed By: #### U DINA, LIPID, TSH, BNP, CMP, T7 #### [facility] [address] [address] [address] Suzie Brooks Bilirubin Ql (U) Normal [facility] Comment on above: Performed By: #### U DINA, LIPID, TSH, BNP, CMP, T7 #### [facility] [address] [address] [address] Suzie Brooks Ca Oxalate Dihydrate Normal [facility] Comment on above: Performed By: #### U DINA, LIPID, TSH, BNP, CMP, T7 #### [facility] [address] [address] [address] Suzie Brooks CaHPO4 (Brushite) Normal [facility] Comment on above: Performed By: #### U DINA, LIPID, TSH, BNP, CMP, T7 #### [facility] [address] [address] [address] Suzie Brooks Calcium Bilirubinate Normal [facility] Comment on above: Performed By: #### U DINA, LIPID, TSH, BNP, CMP, T7 #### [facility] [address] [address] [address] Suzie Brooks Calcium Carbonate Normal [facility] Comment on above: Performed By: #### U DINA, LIPID, TSH, BNP, CMP, T7 #### [facility] [address] [address] [address] Suzie Brooks Calcium Oxalate Monohydrate 70 % Normal [facility] Comment on above: Performed By: #### U DINA, LIPID, TSH, BNP, CMP, T7 #### [facility] [address] [place] [address] Dr[address] Suzie Brooks Calcium Palmitate Normal [facility] Comment on above: Performed By: #### U DINA, LIPID, TSH, BNP, CMP, T7 #### [facility] [address] [address] [address] Suzie Brooks Calcium Phosphate Normal [facility] Comment on above: Performed By: #### U DINA, LIPID, TSH, BNP, CMP, T7 #### [facility] [address] [address] [address] Suzie Brooks Calcium Stearate Normal [facility] Comment on above: Performed By: #### U DINA, LIPID, TSH, BNP, CMP, T7 #### [facility] [address] [address] [address] Suzie Brooks Carbonate Apatite Normal [facility] Comment on above: Performed By: #### U DINA, LIPID, TSH, BNP, CMP, T7 #### [facility] [address] [address] [address] Suzie Brooks Cellular Material Normal [facility] Comment on above: Performed By: #### U DINA, LIPID, TSH, BNP, CMP, T7 #### [facility] [address] [address] [address] Suzie Brooks Cholesterol Normal [facility] Comment on above: Performed By: #### U DINA, LIPID, TSH, BNP, CMP, T7 #### [facility] [address] [address] [address] Suzie Brooks Color (U) Brown Normal [facility] Comment on above: Performed By: #### U DINA, LIPID, TSH, BNP, CMP, T7 #### [facility] [address] [address] [address] Suzie Brooks Comment [facility] Comment on above: Performed By: #### U DINA, LIPID, TSH, BNP, CMP, T7 #### [facility] [address] [address] [address] Suzie Brooks Comment Comment Normal [facility] Comment on above: Result Comment: Calc ulus received in liquid. Wet calculi must be dried before analysis, which delays reporting of results. Leaving calculi in liquid (such as water, saline, blood, urine) may lead to changes in composition. Performed By: #### U DINA, LIPID, TSH, BNP, CMP, T7 #### [facility] [address] [address] [address] Suzie Brooks Comment: Comment Normal [facility] Comment on above: Result Comment: Fantasma baez questions regarding Calculi Analysis [facility] at: [phone]. Performed By: #### U DINA, LIPID, TSH, BNP, CMP, T7 #### [facility] [address] [address] [address] Suzie Brooks Composition Comment Normal [facility] Comment on above: Result Comment: Perc entage (Represents the % composition) Performed By: #### U DINA, LIPID, TSH, BNP, CMP, T7 #### [facility] [address] [address] [address] Suzie Brooks Cystine Normal [facility] Comment on above: Performed By: #### U DINA, LIPID, TSH, BNP, CMP, T7 #### [facility] [address] [address] [address] Suzie Brooks Disclaimer: Comment Normal [facility] Comment on above: Result Comment: This test was developed and its performance characteristics determined by [facility]. It has not been cleared or approved by the Food and Drug Administration. Performed By: #### U DINA, LIPID, TSH, BNP, CMP, T7 #### [facility] [address] [address] [address] Suzie Brooks Dried Blood Normal [facility] Comment on above: Performed By: #### U DINA, LIPID, TSH, BNP, CMP, T7 #### [facility] [address] [address] [address] Suzie Brooks Drug or Metabolite Normal [facility] Comment on above: Performed By: #### U DINA, LIPID, TSH, BNP, CMP, T7 #### [facility] [address] [address] [address] Suzie Brooks Hydroxyapatite Normal [facility] Comment on above: Performed By: #### U DINA, LIPID, TSH, BNP, CMP, T7 #### [facility] [address] [address] [address] Suzie Brooks Mg NH4 PO4 (Struvite) [facility] Comment on above: Performed By: #### U DINA, LIPID, TSH, BNP, CMP, T7 #### [facility] [address] [address] [address] Suzie Brooks MgHPO4 (Newberyite) [facility] Comment on above: Performed By: #### U DINA, LIPID, TSH, BNP, CMP, T7 #### [facility] [address] [address] [address] Suzie Brooks Other component(s) Normal [facility] Comment on above: Performed By: #### U DINA, LIPID, TSH, BNP, CMP, T7 #### [facility] [address] [address] [address] Suzie Brooks PDF . [facility] Comment on above: Performed By: #### U DINA, LIPID, TSH, BNP, CMP, T7 #### [facility] [address] [address] [address] Suzie Brooks Photo Comment [facility] Comment on above: Result Comment: Phot ograph will follow under a separate cover Performed By: #### U DINA, LIPID, TSH, BNP, CMP, T7 #### [facility] [address] [address] [address] Suzie Brooks Please note: Comment [facility] Comment on above: Result Comment: Calc shamika report will follow via computer, mail or balancer scale delivery. Performed By: #### U DINA, LIPID, TSH, BNP, CMP, T7 #### [facility] [address] [address] [address] Suzie Brooks Size 6x4 [facility] Comment on above: Result Comment: Mult iple pieces received. Dimensions of the largest piece reported. Performed By: #### U DINA, LIPID, TSH, BNP, CMP, T7 #### [facility] [address] [address] [address] Suzie Boroks Sodium Acid Urate Normal [facility] Comment on above: Performed By: #### U DINA, LIPID, TSH, BNP, CMP, T7 #### [facility] [address] [address] [address] Suzie Brooks Source Comment [facility] Comment on above: Result Comment: Not provided Performed By: #### U DINA, LIPID, TSH, BNP, CMP, T7 #### [facility] [address] [address] [address] Suzie Brooks Triamterene [facility] Comment on above: Performed By: #### U DINA, LIPID, TSH, BNP, CMP, T7 #### [facility] [address] [address] [address] Suzie Brooks Uric Acid 30 % [facility] Comment on above: Performed By: #### U DINA, LIPID, TSH, BNP, CMP, T7 #### [facility] [address] [address] [address] Suzie Brooks Uric Acid Dihydrate Normal [facility] Comment on above: Performed By: #### U DINA, LIPID, TSH, BNP, CMP, T7 #### [facility] [address] [address] [address] Suzie Brooks Weight 99 mg [facility] Comment on above: Performed By: #### U DINA, LIPID, TSH, BNP, CMP, T7 #### [facility] [address] [address] [address] Suzie Brooks Xanthine Normal [facility] Comment on above: Performed By: #### U DINA, LIPID, TSH, BNP, CMP, T7 #### [facility] [address] [address] [address] Suzie Brooks CBC AUTO DIFFon 02-18-2022 BASO # 0.0 103/ul Normal 0.0-0.1 [facility] Comment on above: Performed By: #### U DINA, LIPID, TSH, BNP, CMP, T7 #### [facility] [address] [place] [address] Dr. Suzie Brooks Basophils/100 WBC (Bld) 0.3 % Normal 0.2-2.0 [facility] Comment on above: Performed By: #### U DINA, LIPID, TSH, BNP, CMP, T7 #### [facility] [address] [place] [address] Dr. Suzie Brooks EO # 0.3 103/ul Normal 0.0-0.7 [facility] Comment on above: Performed By: #### U DINA, LIPID, TSH, BNP, CMP, T7 #### [facility] [address] [place] [address] Dr. Suzie Brooks Eosinophils/100 WBC (Bld) 2.3 % Normal 0.9-7.0 [facility] Comment on above: Performed By: #### U DINA, LIPID, TSH, BNP, CMP, T7 #### [facility] [address] [place] [address] Dr. Suzie Brooks Erythrocyte distribution width (RBC) [Ratio] 14.2 % Normal 11.0-15.0 [facility] Comment on above: Performed By: #### U DINA, LIPID, TSH, BNP, CMP, T7 #### [facility] [address] [place] [address] Dr. Suzie Brooks Hematocrit (Bld) [Volume fraction] 41.3 % Critically low 42.0-54.0 [facility] Comment on above: Performed By: #### U DINA, LIPID, TSH, BNP, CMP, T7 #### [facility] [address] [place] [address] Dr. Suzie Brooks Hemoglobin (Bld) [Mass/Vol] 13.4 g/dL Critically low 14.0-18.0 [facility] Comment on above: Performed By: #### U DINA, LIPID, TSH, BNP, CMP, T7 #### [facility] [address] [place] [address] Dr. Suzie Brooks IG # 0.03 10e3/ul Normal 0.00-0.03 [facility] Comment on above: Performed By: #### U DINA, LIPID, TSH, BNP, CMP, T7 #### [facility] [address] [address] [address] Suzie Brooks IG % 0.3 % Normal 0.0-0.5 [facility] Comment on above: Performed By: #### U DINA, LIPID, TSH, BNP, CMP, T7 #### [facility] [address] [place] [address] Dr. Suzie Brooks LYMPH # 2.0 103/ul Normal 1.2-3.8 [facility] Comment on above: Performed By: #### U DINA, LIPID, TSH, BNP, CMP, T7 #### [facility] [address] [place] [address] Dr. Suzie Brooks Lymphocytes/100 WBC (Bld) 18.0 % Critically low 20.5-60.0 [facility] Comment on above: Performed By: #### U DINA, LIPID, TSH, BNP, CMP, T7 #### [facility] [address] [place] [address] Dr. Suzie Brooks MANUAL DIFF REQ NO Normal [facility] Comment on above: Performed By: #### U DINA, LIPID, TSH, BNP, CMP, T7 #### [facility] [address] [place] [address] Dr. Suzie Brooks MCH (RBC) [Entitic mass] 28.8 pg Normal 25.9-34.0 [facility] Comment on above: Performed By: #### U DINA, LIPID, TSH, BNP, CMP, T7 #### [facility] [address] [place] [address] Dr. Suzie Brooks MCHC (RBC) [Mass/Vol] 32.4 g/dL Normal 29.9-35.2 [facility] Comment on above: Performed By: #### U DINA, LIPID, TSH, BNP, CMP, T7 #### [facility] [address] [place] [address] Dr. Suzie Brooks MCV (RBC) [Entitic vol] 88.6 fL Normal 80.0-94.0 [facility] Comment on above: Performed By: #### U DINA, LIPID, TSH, BNP, CMP, T7 #### [facility] [address] [place] [address] Dr. Suzie Brooks MONO # 1.0 103/ul Critically high 0.3-0.8 [facility] Comment on above: Performed By: #### U DINA, LIPID, TSH, BNP, CMP, T7 #### [facility] [address] [place] [address] Dr. Suzie Brooks Monocytes/100 WBC (Bld) 9.2 % Normal 1.7-12.0 [facility] Comment on above: Performed By: #### U DINA, LIPID, TSH, BNP, CMP, T7 #### [facility] [address] [place] [address] Dr. Suzie Brooks NEUT # 7.9 103/ul Critically high 1.4-6.5 [facility] Comment on above: Performed By: #### U DINA, LIPID, TSH, BNP, CMP, T7 #### [facility] [address] [place] [address] Dr. Suzie Brooks Neutrophils/100 WBC (Bld) 69.9 % Normal 43.0-75.0 [facility] Comment on above: Performed By: #### U DINA, LIPID, TSH, BNP, CMP, T7 #### [facility] [address] [place] [address] Dr. Suzie Brooks Platelet mean volume (Bld) [Entitic vol] 9.6 fL Normal 9.5-13.5 [facility] Comment on above: Performed By: #### U DINA, LIPID, TSH, BNP, CMP, T7 #### [facility] [address] [place] [address] Dr. Suzie Brooks PLT 218 103/ul Normal 150-450 [facility] Comment on above: Performed By: #### U DINA, LIPID, TSH, BNP, CMP, T7 #### [facility] [address] [place] [address] Dr. Suzie Brooks RBC 4.66 106/ul Critically low 4.70-6.10 [facility] Comment on above: Performed By: #### U DINA, LIPID, TSH, BNP, CMP, T7 #### [facility] [address] [address] [address] Suzie Brooks WBC 11.3 103/ul Critically high 4.0-11.0 [facility] Comment on above: Performed By: #### U DINA, LIPID, TSH, BNP, CMP, T7 #### [facility] [id number] Suzie Brooks CULTURE URINEon 02-18-2022 CULTURE URINE Culture Observations : NO GROWTH. Normal [facility] Comment on above: Performed By: #### M AG24 #### [facility] [address] [address] [address] Suzie Brooks Covid-19 PCR (CVDTBH)on 02-08 SARS-CoV-2 (COVID-19) RNA SUKHJINDER+probe Ql (Unsp spec) Not detected Normal NOT DETECTED [facility] Comment on above: Result Comment: [...] for this test is supported by the [employer] Operator of Health and Human Service's declaration that [...] used). Performed By: #### C VDTBH #### [facility] [address] [place], [place] [id number] Dr. Suzie Brooks PROF 14(COMP METB)on 022 Albumin [Mass/Vol] 3.0 g/dL Critically low 3.4-5.0 [facility] Comment on above: Performed By: #### O X24HR #### [facility] [address] [address] [address] Suzie Brooks Albumin/Globulin [Mass ratio] 0.9 {ratio} Normal [facility] Comment on above: Performed By: #### O X24HR #### [facility] [address] [place] [address] Dr. Suzie Brooks ALP [Catalytic activity/Vol] 49 U/L Normal 46-116 [facility] Comment on above: Performed By: #### O X24HR #### [facility] [address] [place] [address] Dr. Suzie Brooks ALT [Catalytic activity/Vol] 35 U/L Normal 16-63 [facility] Comment on above: Performed By: #### O X24HR #### [facility] [address] [place] [address] Dr. Suzie Brooks Anion gap [Moles/Vol] 11.8 mmol/L Normal [facility] Comment on above: Performed By: #### O X24HR #### [facility] [address] [place] [address] Dr. Suzie Brooks AST [Catalytic activity/Vol] 27 U/L Normal 15-37 [facility] Comment on above: Performed By: #### O X24HR #### [facility] [address] [place] [address] Dr. Suzie Brooks Bilirubin [Mass/Vol] 0.4 mg/dL Normal 0.2-1.0 [facility] Comment on above: Performed By: #### O X24HR #### [facility] [address] [place] [address] Dr. Suzie Brooks Calcium [Mass/Vol] 7.6 mg/dL Critically low 8.5-10.1 [facility] Comment on above: Performed By: #### O X24HR #### [facility] [address] [place] [address] Dr. Suzie Brooks Chloride [Moles/Vol] 106 mmol/L Normal 98-107 [facility] Comment on above: Performed By: #### O X24HR #### [facility] [address] [place] [address] Dr. Suzie Brooks CO2 [Moles/Vol] 26.2 mmol/L Normal 21.0-32.0 [facility] Comment on above: Performed By: #### O X24HR #### [facility] [address] [place] [address] Dr. Suzie Brooks Creatinine [Mass/Vol] 1.08 mg/dL Normal 0.70-1.30 [facility] Comment on above: Performed By: #### O X24HR #### [facility] [address] [place] [address] Dr. Suzie Brooks EGFR-AF MAURITIAN >60 Normal >=60 [facility] Comment on above: Performed By: #### O X24HR #### [facility] [address] [place] [address] Dr. Suzie Brooks EGFR-NON AF MAURITIAN >60 Normal >=60 [facility] Comment on above: Performed By: #### O X24HR #### [facility] [address] [place] [address] Dr. Suzie Brooks Globulin (S) [Mass/Vol] 3.2 g/dL Normal [facility] Comment on above: Performed By: #### O X24HR #### [facility] [address] [place] [address] Dr. Suzie Brooks Glucose [Mass/Vol] 107 mg/dL Critically high 74-106 [facility] Comment on above: Performed By: #### O X24HR #### [facility] [address] [place] [address] Dr. Suzie Brooks Potassium [Moles/Vol] 4.0 mmol/L Normal 3.5-5.1 [facility] Comment on above: Performed By: #### O X24HR #### [facility] [address] [place] [address] Dr. Suzie Brooks Protein [Mass/Vol] 6.2 g/dL Critically low 6.4-8.2 [facility] Comment on above: Performed By: #### O X24HR #### [facility] [address] [place] [address] Dr. Suzie Brooks Sodium [Moles/Vol] 140 mmol/L Normal 136-145 [facility] Comment on above: Performed By: #### O X24HR #### [facility] [address] [place] [address] Dr. Suzie Brooks Urea nitrogen [Mass/Vol] 14.0 mg/dL Normal 7.0-18.0 [facility] Comment on above: Performed By: #### O X24HR #### [facility] [address] [place] [address] Dr. Suzie Brooks Urea nitrogen/Creatinine [Mass ratio] 13.0 mg/mg Normal [facility] Comment on above: Performed By: #### O X24HR #### [facility] [address] [place] [address] Dr. Suzie Brooks CBC AUTO DIFFon 02-17-2022 BASO # 0.1 103/ul Normal 0.0-0.1 [facility] Comment on above: Performed By: #### M AG24 #### [facility] [address] [place] [address] Dr. Suzie Brooks Basophils/100 WBC (Bld) 0.4 % Normal 0.2-2.0 [facility] Comment on above: Performed By: #### M AG24 #### [facility] [address] [place] [address] Dr. Suzie Brooks EO # 0.3 103/ul Normal 0.0-0.7 [facility] Comment on above: Performed By: #### M AG24 #### [facility] [address] [place] [address] Dr. Suzie Brooks Eosinophils/100 WBC (Bld) 2.3 % Normal 0.9-7.0 [facility] Comment on above: Performed By: #### M AG24 #### [facility] [address] [place] [address] Dr. Suzie Brooks Erythrocyte distribution width (RBC) [Ratio] 13.8 % Normal 11.0-15.0 [facility] Comment on above: Performed By: #### M AG24 #### [facility] [address] [place] [address] Dr. Suzie Brooks Hematocrit (Bld) [Volume fraction] 45.2 % Normal 42.0-54.0 [facility] Comment on above: Performed By: #### M AG24 #### [facility] [address] [place] [address] Dr. Suzie Brooks Hemoglobin (Bld) [Mass/Vol] 14.9 g/dL Normal 14.0-18.0 [facility] Comment on above: Performed By: #### M AG24 #### [facility] [address] [address] [address] Suzie Brooks IG # 0.05 10e3/ul Critically high 0.00-0.03 [facility] Comment on above: Performed By: #### M AG24 #### [facility] [address] [place] [address] Dr. Suzie Brooks IG % 0.4 % Normal 0.0-0.5 [facility] Comment on above: Performed By: #### M AG24 #### [facility] [address] [place] [address] Dr. Suzie Brooks LYMPH # 2.5 103/ul Normal 1.2-3.8 [facility] Comment on above: Performed By: #### M AG24 #### [facility] [address] [place] [address] Dr. Suzie Brooks Lymphocytes/100 WBC (Bld) 17.3 % Critically low 20.5-60.0 [facility] Comment on above: Performed By: #### M AG24 #### [facility] [address] [place] [address] Dr. Suzie Brooks MANUAL DIFF REQ NO Normal [facility] Comment on above: Performed By: #### M AG24 #### [facility] [address] [place] [address] Dr. Suzie Brooks MCH (RBC) [Entitic mass] 28.7 pg Normal 25.9-34.0 [facility] Comment on above: Performed By: #### M AG24 #### [facility] [address] [place] [address] Dr. Suzie Brooks MCHC (RBC) [Mass/Vol] 33.0 g/dL Normal 29.9-35.2 [facility] Comment on above: Performed By: #### M AG24 #### [facility] [address] [place] [address] Dr. Suzie Brooks MCV (RBC) [Entitic vol] 87.1 fL Normal 80.0-94.0 [facility] Comment on above: Performed By: #### M AG24 #### [facility] [address] [place] [address] Dr. Suzie Brooks MONO # 1.0 103/ul Critically high 0.3-0.8 [facility] Comment on above: Performed By: #### M AG24 #### [facility] [address] [place] [address] Dr. Suzie Brooks Monocytes/100 WBC (Bld) 6.8 % Normal 1.7-12.0 [facility] Comment on above: Performed By: #### M AG24 #### [facility] [address] [place] [address] Dr. Suzie Brooks NEUT # 10.3 103/ul Critically high 1.4-6.5 [facility] Comment on above: Performed By: #### M AG24 #### [facility] [address] [place] [address] Dr. Suzie Brooks Neutrophils/100 WBC (Bld) 72.8 % Normal 43.0-75.0 [facility] Comment on above: Performed By: #### M AG24 #### [facility] [address] [place] [address] Dr. Suzie Brooks Platelet mean volume (Bld) [Entitic vol] 9.7 fL Normal 9.5-13.5 [facility] Comment on above: Performed By: #### M AG24 #### [facility] [address] [place] [address] Dr. Suzie Brooks PLT 253 103/ul Normal 150-450 [facility] Comment on above: Performed By: #### M AG24 #### [facility] [address] [place] [address] Dr. Suzie Brooks RBC 5.19 106/ul Normal 4.70-6.10 [facility] Comment on above: Performed By: #### M AG24 #### [facility] [address] [place] [address] Dr. Suzie Brooks WBC 14.2 103/ul Critically high 4.0-11.0 [facility] Comment on above: Performed By: #### M AG24 #### [facility] [address] [place] [address] Dr. Suzie Brooks CULTURE BLOODon 02-17-2022 Microscopic examination of blood, culture Culture Observations: NO GROWTH AT 5 DAYS. Normal [facility] Comment on above: Performed By: #### M AG24 #### [facility] [address] [place] [address] Dr. Suzie Brooks Microscopic examination of blood, culture Culture Observations: NO GROWTH AT 5 DAYS. Normal [facility] Comment on above: Performed By: #### M AG24 #### [facility] [address] [place] [address] Dr. Suzie Brooks ER URINE PROFILEon Bilirubin Ql (U) Negative Normal NEGATIVE [facility] Comment on above: Performed By: #### E RUR #### [facility] [address] [place] [address] Dr. Suzie Brooks Clarity (U) CLEAR Normal CLEAR [facility] Comment on above: Performed By: #### E RUR #### [facility] [address] [place] [address] Dr. Suzie Brooks Color (U) DK. YELLOW Normal YELLOW [facility] Comment on above: Performed By: #### E RUR #### [facility] [address] [place] [address] Dr. Suzie Brooks ERUDIOGOD A micrscopic examina tion will be performed if indicated. Normal [facility] Comment on above: Performed By: #### E RUR #### [facility] [address] [place] [address] Dr. Suzie Brooks Glucose Ql (U) Negative Normal NEGATIVE [facility] Comment on above: Performed By: #### E RUR #### [facility] [address] [place] [address] Dr. Suzie Brooks Hemoglobin Ql (U) Negative Normal NEGATIVE [facility] Comment on above: Performed By: #### E RUR #### [facility] [address] [place] [address] Dr. Suzie Brooks Ketones Ql (U) Negative Normal NEGATIVE [facility] Comment on above: Performed By: #### E RUR #### [facility] [address] [place] [address] Dr. Suzie Brooks LEUKOCYTES Negative Normal NEGATIVE [facility] Comment on above: Performed By: #### E RUR #### [facility] [address] [place] [address] Dr. Suzie Brooks Nitrite Ql (U) Negative Normal NEGATIVE [facility] Comment on above: Performed By: #### E RUR #### [facility] [address] [place] [address] Dr. Suzie Brooks pH (U) 5.0 [pH] Normal 5-9 [facility] Comment on above: Performed By: #### E RUR #### [facility] [address] [place] [address] Dr. Suzie Brooks SPEC GRAVITY >=1.030 Abnormal 1.005-<=1.02 5 [facility] Comment on above: Performed By: #### E RUR #### [facility] [address] [place] [address] Dr. Suzie Brooks UA PROTEIN Negative Normal NEGATIVE/ TRACE [facility] Comment on above: Performed By: #### E RUR #### [facility] [address] [place] [address] Dr. Suzie Brooks UR MICRO IND NOT INDICATED Normal [facility] Comment on above: Performed By: #### E RUR #### [facility] [address] [place] [address] Dr. Suzie Brooks Urobilinogen Qn (U) 0.2 {Behzad'U}/dL Normal 0.2 - 1. 0 [facility] Comment on above: Performed By: #### E RUR #### [facility] [address] [address] [address] Suzie Brooks LACTATE/LACTIC ACIDon 2021 Lactate [Moles/Vol] 1.4 mmol/L Normal 0.4-1.9 [facility] Comment on above: Performed By: #### U DINA, LIPID, TSH, BNP, CMP, T7 #### [facility] [address] [address] [address] Suzie Brooks PROF CHEM 8 (BAS METB)on Anion gap [Moles/Vol] 12.2 mmol/L Normal [facility] Comment on above: Performed By: #### U DINA, LIPID, TSH, BNP, CMP, T7 #### [facility] [address] [address] [address] Suzie Brooks Calcium [Mass/Vol] 8.1 mg/dL Critically low 8.5-10.1 [facility] Comment on above: Performed By: #### U DINA, LIPID, TSH, BNP, CMP, T7 #### [facility] [address] [address] [address] Suzie Brooks Chloride [Moles/Vol] 103 mmol/L Normal 98-107 [facility] Comment on above: Performed By: #### U DINA, LIPID, TSH, BNP, CMP, T7 #### [facility] [address] [address] [address] Suzie Brooks CO2 [Moles/Vol] 26.1 mmol/L Normal 21.0-32.0 [facility] Comment on above: Performed By: #### U DINA, LIPID, TSH, BNP, CMP, T7 #### [facility] [address] [address] [address] Suzie Brooks Creatinine [Mass/Vol] 1.06 mg/dL Normal 0.70-1.30 [facility] Comment on above: Performed By: #### U DINA, LIPID, TSH, BNP, CMP, T7 #### [facility] [address] [address] [address] Suzie Brooks EGFR-AF MAURITIAN >60 Normal >=60 [facility] Comment on above: Performed By: #### U DINA, LIPID, TSH, BNP, CMP, T7 #### [facility] [address] [address] [address] Suzie Brooks EGFR-NON AF MAURITIAN >60 Normal >=60 [facility] Comment on above: Performed By: #### U DINA, LIPID, TSH, BNP, CMP, T7 #### [facility] [address] [address] [address] Suzie Brooks Glucose [Mass/Vol] 138 mg/dL Critically high 74-106 [facility] Comment on above: Performed By: #### U DINA, LIPID, TSH, BNP, CMP, T7 #### [facility] [address] [address] [address] Suzie Brooks Potassium [Moles/Vol] 4.3 mmol/L Normal 3.5-5.1 [facility] Comment on above: Performed By: #### U DINA, LIPID, TSH, BNP, CMP, T7 #### [facility] [address] [address] [address] Suzie Brooks Sodium [Moles/Vol] 137 mmol/L Normal 136-145 [facility] Comment on above: Performed By: #### U DINA, LIPID, TSH, BNP, CMP, T7 #### [facility] [address] [address] [address] Suzie Brooks Urea nitrogen [Mass/Vol] 14.0 mg/dL Normal 7.0-18.0 [facility] Comment on above: Performed By: #### U DINA, LIPID, TSH, BNP, CMP, T7 #### [facility] [address] [address] [address] Suzie Brooks Urea nitrogen/Creatinine [Mass ratio] 13.2 mg/mg Normal [facility] Comment on above: Performed By: #### U DINA, LIPID, TSH, BNP, CMP, T7 #### [facility] [address] [address] [address] Suzie Brooks TROPONIN, HIGH SENSITIVITYon 02-17-2022 HSTROP 8.4 pg/mL Normal 4.0-76.1 [facility] Comment on above: Result Comment: CUT- OFF POINTS HAVE BEEN ESTABLISHED BASED ON THE FOURTH UNIVERSAL DEFINITIONS OF MYOCARDIAL INFARCTION. THE UPPER REFERENCE LIMIT (URL) OF TROPONIN, DEFINED THE 99TH PERCENTILE OF cTnI DISTRIBUTION IN A REFERENCE POPULATION, HAS BEEN CONFIRMED THE DECISION THRESHOLD FOR DC DIAGNOSIS. Performed By: #### U DINA, LIPID, TSH, BNP, CMP, T7 #### [facility] [address] [place] [address] Dr. Suzie Brooks CBC AUTO DIFFon 02-16-2022 BASO # 0.1 103/ul Normal 0.0-0.1 [facility] Comment on above: Performed By: #### U DINA, LIPID, TSH, BNP, CMP, T7 #### [facility] [address] [place] [address] Dr. Suzei Brooks Basophils/100 WBC (Bld) 0.4 % Normal 0.2-2.0 [facility] Comment on above: Performed By: #### U DINA, LIPID, TSH, BNP, CMP, T7 #### [facility] [address] [place] [address] Dr. Suzie Brooks EO # 0.3 103/ul Normal 0.0-0.7 [facility] Comment on above: Performed By: #### U DINA, LIPID, TSH, BNP, CMP, T7 #### [facility] [address] [place] [address] Dr. Suzie Brooks Eosinophils/100 WBC (Bld) 2.5 % Normal 0.9-7.0 [facility] Comment on above: Performed By: #### U DINA, LIPID, TSH, BNP, CMP, T7 #### [facility] [address] [place] [address] Dr. Suzie Brooks Erythrocyte distribution width (RBC) [Ratio] 13.9 % Normal 11.0-15.0 [facility] Comment on above: Performed By: #### U DINA, LIPID, TSH, BNP, CMP, T7 #### [facility] [address] [place] [address] Dr. Suzie Brooks Hematocrit (Bld) [Volume fraction] 46.6 % Normal 42.0-54.0 [facility] Comment on above: Performed By: #### U DINA, LIPID, TSH, BNP, CMP, T7 #### [facility] [address] [address] [address] Suzie Brooks Hemoglobin (Bld) [Mass/Vol] 15.7 g/dL Normal 14.0-18.0 [facility] Comment on above: Performed By: #### U DINA, LIPID, TSH, BNP, CMP, T7 #### [facility] [address] [address] [address] Suzie Brooks IG # 0.05 10e3/ul Critically high 0.00-0.03 [facility] Comment on above: Performed By: #### U DINA, LIPID, TSH, BNP, CMP, T7 #### [facility] [address] [place] [address] Dr. Suzie Brooks IG % 0.4 % Normal 0.0-0.5 [facility] Comment on above: Performed By: #### U DINA, LIPID, TSH, BNP, CMP, T7 #### [facility] [address] [place] [address] Dr. Suzie Brooks LYMPH # 3.7 103/ul Normal 1.2-3.8 [facility] Comment on above: Performed By: #### U DINA, LIPID, TSH, BNP, CMP, T7 #### [facility] [address] [place] [address] Dr. Suzie Brooks Lymphocytes/100 WBC (Bld) 26.6 % Normal 20.5-60.0 [facility] Comment on above: Performed By: #### U DINA, LIPID, TSH, BNP, CMP, T7 #### [facility] [address] [address] [address] Suzie Brooks MANUAL DIFF REQ NO Normal [facility] Comment on above: Performed By: #### U DINA, LIPID, TSH, BNP, CMP, T7 #### [facility] [address] [place] [address] Dr. Suzie Brooks MCH (RBC) [Entitic mass] 29.2 pg Normal 25.9-34.0 [facility] Comment on above: Performed By: #### U DINA, LIPID, TSH, BNP, CMP, T7 #### [facility] [address] [address] [address] [facility] [Mass/Vol] 33.7 g/dL Normal 29.9-35.2 [facility] Comment on above: Performed By: #### U DINA, LIPID, TSH, BNP, CMP, T7 #### [facility] [address] [address] [address] Suzie Brooks MCV (RBC) [Entitic vol] 86.6 fL Normal 80.0-94.0 [facility] Comment on above: Performed By: #### U DINA, LIPID, TSH, BNP, CMP, T7 #### [facility] [address] [place] [address] Dr. Suzie Brooks MONO # 1.0 103/ul Critically high 0.3-0.8 [facility] Comment on above: Performed By: #### U DINA, LIPID, TSH, BNP, CMP, T7 #### [facility] [address] [place] [address] Dr. Suzie Brooks Monocytes/100 WBC (Bld) 7.2 % Normal 1.7-12.0 [facility] Comment on above: Performed By: #### U DINA, LIPID, TSH, BNP, CMP, T7 #### [facility] [address] [place] [address] Dr. Suzie Brooks NEUT # 8.7 103/ul Critically high 1.4-6.5 [facility] Comment on above: Performed By: #### U DINA, LIPID, TSH, BNP, CMP, T7 #### [facility] [address] [place] [address] Dr. Suzie Brooks Neutrophils/100 WBC (Bld) 62.9 % Normal 43.0-75.0 [facility] Comment on above: Performed By: #### U DINA, LIPID, TSH, BNP, CMP, T7 #### [facility] [address] [place] [address] Dr. Suzie Brooks Platelet mean volume (Bld) [Entitic vol] 9.4 fL Critically low 9.5-13.5 [facility] Comment on above: Performed By: #### U DINA, LIPID, TSH, BNP, CMP, T7 #### [facility] [address] [place], [place] [address] Dr. Suzie Brooks PLT 277 103/ul Normal 150-450 [facility] Comment on above: Performed By: #### U DINA, LIPID, TSH, BNP, CMP, T7 #### [facility] [address] [place], [place] [address] Dr. Suzie Brooks RBC 5.38 106/ul Normal 4.70-6.10 [facility] Comment on above: Performed By: #### U DINA, LIPID, TSH, BNP, CMP, T7 #### [facility] [address] [place], [place] [address] Dr. Suzie Brooks WBC 13.8 103/ul Critically high 4.0-11.0 [facility] Comment on above: Performed By: #### U DINA, LIPID, TSH, BNP, CMP, T7 #### [facility] [address] [place], [place] [address] ABD/PELVIS WO CONon [...] Reilly CAST Date: 2022-02-16 20:51 Normal [facility] URINE PROFILEon 2 Bilirubin Ql (U) Negative Normal NEGATIVE [facility] Comment on above: Performed By: #### U DINA, LIPID, TSH, BNP, CMP, T7 #### [facility] [address] [address] [address] Suzie Brooks Clarity (U) CLEAR Normal CLEAR [facility] Comment on above: Performed By: #### U DINA, LIPID, TSH, BNP, CMP, T7 #### [facility] [address] [address] [address] Suzie Brooks Color (U) YELLOW Normal YELLOW [facility] Comment on above: Performed By: #### U DINA, LIPID, TSH, BNP, CMP, T7 #### [facility] [address] [address] [address] Suzie Brooks ERUAHD A micrscopic examina tion will be performed if indicated. Normal [facility] Comment on above: Performed By: #### U DINA, LIPID, TSH, BNP, CMP, T7 #### [facility] [address] [address] [address] Suzie Brooks Glucose Ql (U) Negative Normal NEGATIVE [facility] Comment on above: Performed By: #### U DINA, LIPID, TSH, BNP, CMP, T7 #### [facility] [address] [address] [address] Suzie Brooks Hemoglobin Ql (U) MODERATE Abnormal NEGATIVE [facility] Comment on above: Performed By: #### U DINA, LIPID, TSH, BNP, CMP, T7 #### [facility] [address] [address] [address] Suzie Brooks Ketones Ql (U) Negative Normal NEGATIVE [facility] Comment on above: Performed By: #### U DINA, LIPID, TSH, BNP, CMP, T7 #### [facility] [address] [place] [address] Dr. Suzie Brooks LEUKOCYTES Negative Normal NEGATIVE [facility] Comment on above: Performed By: #### U DINA, LIPID, TSH, BNP, CMP, T7 #### [facility] [address] [address] [address] Suzie Brooks Nitrite Ql (U) Negative Normal NEGATIVE [facility] Comment on above: Performed By: #### U DINA, LIPID, TSH, BNP, CMP, T7 #### [facility] [address] [address] [address] Suzie Brooks pH (U) 5.5 [pH] Normal 5-9 [facility] Comment on above: Performed By: #### U DINA, LIPID, TSH, BNP, CMP, T7 #### [facility] [address] [address] [address] Suzie Brooks SPEC GRAVITY >=1.030 Abnormal 1.005-<=1.02 5 [facility] Comment on above: Performed By: #### U DINA, LIPID, TSH, BNP, CMP, T7 #### [facility] [address] [place] [address] Dr. Suzie Brooks UA PROTEIN Negative Normal NEGATIVE/ TRACE [facility] Comment on above: Performed By: #### U DINA, LIPID, TSH, BNP, CMP, T7 #### [facility] [address] [place] [address] Dr. Suzie Brooks UR MICRO IND INDICATED Normal [facility] Comment on above: Performed By: #### U DINA, LIPID, TSH, BNP, CMP, T7 #### [facility] [address] [place] [address] Dr. Suzie Brooks Urobilinogen Qn (U) 0.2 {Behzad'U}/dL Normal 0.2 - 1. 0 [facility] Comment on above: Performed By: #### U DINA, LIPID, TSH, BNP, CMP, T7 #### [facility] [address] [place] [address] Dr. Suzie Brooks PROF CHEM 8 (BAS METB)on Anion gap [Moles/Vol] 12.2 mmol/L Normal [facility] Comment on above: Performed By: #### U DINA, LIPID, TSH, BNP, CMP, T7 #### [facility] [address] [place] [address] Dr. Suzie Brooks Calcium [Mass/Vol] 8.5 mg/dL Normal 8.5-10.1 [facility] Comment on above: Performed By: #### U DINA, LIPID, TSH, BNP, CMP, T7 #### [facility] [address] [place] [address] Dr. Suzie Brooks Chloride [Moles/Vol] 104 mmol/L Normal 98-107 [facility] Comment on above: Performed By: #### U DINA, LIPID, TSH, BNP, CMP, T7 #### [facility] [address] [address] [address] Suzie Brooks CO2 [Moles/Vol] 24.1 mmol/L Normal 21.0-32.0 [facility] Comment on above: Performed By: #### U DINA, LIPID, TSH, BNP, CMP, T7 #### [facility] [address] [place] [address] Dr. Suzie Brooks Creatinine [Mass/Vol] 1.14 mg/dL Normal 0.70-1.30 [facility] Comment on above: Performed By: #### U DINA, LIPID, TSH, BNP, CMP, T7 #### [facility] [address] [address] [address] Suzie Brooks EGFR-AF MAURITIAN >60 Normal >=60 [facility] Comment on above: Performed By: #### U DINA, LIPID, TSH, BNP, CMP, T7 #### [facility] [address] [address] [address] Suzie Brooks EGFR-NON AF MAURITIAN >60 Normal >=60 [facility] Comment on above: Performed By: #### U DINA, LIPID, TSH, BNP, CMP, T7 #### [facility] [address] [address] [address] Suzie Brooks Glucose [Mass/Vol] 114 mg/dL Critically high 74-106 T [facility] Comment on above: Performed By: #### U DINA, LIPID, TSH, BNP, CMP, T7 #### [facility] [address] [address] [address] Suzie Brooks Potassium [Moles/Vol] 4.3 mmol/L Normal 3.5-5.1 [facility] Comment on above: Performed By: #### U DINA, LIPID, TSH, BNP, CMP, T7 #### [facility] [address] [address] [address] Suzie Brooks Sodium [Moles/Vol] 136 mmol/L Normal 136-145 [facility] Comment on above: Performed By: #### U DINA, LIPID, TSH, BNP, CMP, T7 #### [facility] [address] [address] [address] Suzie Brooks Urea nitrogen [Mass/Vol] 14.0 mg/dL Normal 7.0-18.0 [facility] Comment on above: Performed By: #### U DINA, LIPID, TSH, BNP, CMP, T7 #### [facility] [address] [address] [address] Suzie Brooks Urea nitrogen/Creatinine [Mass ratio] 12.3 mg/mg Normal [facility] Comment on above: Performed By: #### U DINA, LIPID, TSH, BNP, CMP, T7 #### [facility] [address] [address] [address] Suzie Brooks URINE MICROSCOPIC ONLYon BACTERIA NONE SEEN Normal NONE SEEN [facility] Comment on above: Performed By: #### U DINA, LIPID, TSH, BNP, CMP, T7 #### [facility] [address] [address] [address] Suzie Brooks Bacteria identified Cx Nom (U) NOT INDICATED Normal [facility] Comment on above: Performed By: #### U DINA, LIPID, TSH, BNP, CMP, T7 #### [facility] [address] [place] [address] Dr. Suzie Brooks CAST NONE SEEN Normal NONE SEEN [facility] Comment on above: Performed By: #### U DINA, LIPID, TSH, BNP, CMP, T7 #### [facility] [address] [place] [address] Dr. Suzie Brooks Crystals LM Nom (Urine sed) NONE SEEN Normal NONE SEEN [facility] Comment on above: Performed By: #### U DINA, LIPID, TSH, BNP, CMP, T7 #### [facility] [address] [place] [address] Dr. Suzie Brooks Epithelial cells LM Ql (Urine sed) RARE Normal NONE SEEN /RARE [facility] Comment on above: Performed By: #### U DINA, LIPID, TSH, BNP, CMP, T7 #### [facility] [address] [place] [address] Dr. Suzie Brooks MUCOUS NONE SEEN Normal NONE SEEN [facility] Comment on above: Performed By: #### U DINA, LIPID, TSH, BNP, CMP, T7 #### [facility] [address] [place] [address] Dr. Suzie Brooks RBC 5-10 Abnormal 0-2 [facility] Comment on above: Performed By: #### U DINA, LIPID, TSH, BNP, CMP, T7 #### [facility] [address] [place] [address] Dr. Suzie Brooks WBC NONE SEEN Normal NONE SEEN [facility] Comment on above: Performed By: #### U DINA, LIPID, TSH, BNP, CMP, T7 #### [facility] [address] [address] [address] Suzie Brooks CITRATE URINE 24HRon 022 Citric Acid, U, 24hr 1312 mg/24 hr Critically high 320-124 0 [facility] Comment on above: Result Comment: This test was developed and its performance characteristics determined by [employer]. It has not been cleared or approved by the Food and Drug Administration. Performed By: #### U DINA, LIPID, TSH, BNP, CMP, T7 #### [facility] [address] [address] [address] Suzie Brooks Citric Acid, Urine 610 mg/L Normal Undefined [facility] Comment on above: Performed By: #### U DINA, LIPID, TSH, BNP, CMP, T7 #### [facility] [address] [place] [address] Dr. Suzie Brooks OXALATE 24HR URINEon 022 Oxalates, Urine 11 mg/L Normal Undefined [facility] Comment on above: Performed By: #### O [id number] #### [facility] [address] [place] [address] Dr. Suzie Brooks Oxalates, Urine 24hr 24 mg/24 hr Normal 7-44 [facility] Comment on above: Performed By: #### O X24HR #### [facility] [address] [place] [address] Dr. Suzie Brooks MAGNESIUM 24HR URINEon 02-02 Magnesium 24hr Urine 77.4 mg/24 hr Normal 12.0-293.0 [facility] Comment on above: Performed By: #### M AG24 #### [facility] [address] [place] [address] Dr. Suzie Brooks Magnesium UR 3.6 mg/dL Normal Not Estab. [facility] Comment on above: Performed By: #### M AG24 #### [facility] [address] [place] [address] Dr. Suzie Brooks PHOSPHORUS 24HR URINEon 01-10 Phosphorus, Urine 44.1 mg/dL Normal Not Estab. [facility] Comment on above: Performed By: #### U DINA, LIPID, TSH, BNP, CMP, T7 #### [facility] [address] [address] [address] Suzie Brooks Phosphorus, Urine 24hr 948 mg/24 hr Normal 390-1425 [facility] Comment on above: Performed By: #### U DINA, LIPID, TSH, BNP, CMP, T7 #### [facility] [address] [address] [address] Suzie Brooks URIC ACID 24 HR URINEon 01-10 Uric Acid, Urine 35.4 mg/dL Normal Not Estab. [facility] Comment on above: Performed By: #### U DINA, LIPID, TSH, BNP, CMP, T7 #### [facility] [address] [address] [address] Suzie Brooks Uric Acid, Urine 24hr 761.1 mg/24 hr Normal 182.4-936.8 [facility] Comment on above: Performed By: #### U DINA, LIPID, TSH, BNP, CMP, T7 #### [facility] [address] [address] [address] Suzie Brooks CALCIUM 24 HR URINEon 2021 CALC, 24 HR UR 187.0 mg/24 hr Normal 100.0-300.0 [facility] Comment on above: Performed By: #### U DINA, LIPID, TSH, BNP, CMP, T7 #### [facility] [address] [address] [address] Suzie Brooks UR CALCIUM 8.7 mg/dL Normal 5.1-21.0 [facility] Comment on above: Performed By: #### U DINA, LIPID, TSH, BNP, CMP, T7 #### [facility] [address] [address] [address] Suzie Brooks UR TOT VOL 2150 ml/24 HR Normal [facility] Comment on above: Performed By: #### U DINA, LIPID, TSH, BNP, CMP, T7 #### [facility] [address] [address] [address] Suzie Brooks CREA 24 HR URINEon 2 CREA, 24 HR UR 1983.59 mg/24 hr Normal 1,000.00- 2,0 00.00 [facility] Comment on above: Performed By: #### U DINA, LIPID, TSH, BNP, CMP, T7 #### [facility] [address] [place] [address] Dr. Suzie Brooks URINE CREAT 92.26 mg/dL Normal 20.00-300.00 [facility] Comment on above: Performed By: #### U DINA, LIPID, TSH, BNP, CMP, T7 #### [facility] [address] [place] [address] Dr. Suzie Brooks SODIUM 24 HR URINEon 022 NA, 24 HR UR 172 mmol/24 hr Normal 40-220 [facility] Comment on above: Performed By: #### U DINA, LIPID, TSH, BNP, CMP, T7 #### [facility] [address] [place] [address] Dr. Suzie Brooks Sodium (U) [Moles/Vol] 80 mmol/L Normal 30-90 [facility] Comment on above: Performed By: #### U DINA, LIPID, TSH, BNP, CMP, T7 #### [facility] [address] [place] [address] Dr. Suzie Brooks PTH INTACTon 01-31-2022 PTH, Intact 24 pg/mL Normal 15-65 [facility] Comment on above: Performed By: #### U DINA, LIPID, TSH, BNP, CMP, T7 #### [facility] [address] [place] [address] Dr. Suzie Brooks BUNon 01-30-2022 Urea nitrogen [Mass/Vol] 12.0 mg/dL Normal 7.0-18.0 [facility] Comment on above: Performed By: #### U DINA, LIPID, TSH, BNP, CMP, T7 #### [facility] [address] [place] [address] Dr. Suzie Brooks CALCIUMon 01-30-2022 Calcium [Mass/Vol] 8.6 mg/dL Normal 8.5-10.1 [facility] Comment on above: Performed By: #### U DINA, LIPID, TSH, BNP, CMP, T7 #### [facility] [address] [address] [address] Suzie Brooks CHLORIDEon 01-30-2022 Chloride [Moles/Vol] 104 mmol/L Normal 98-107 [facility] Comment on above: Performed By: #### U DINA, LIPID, TSH, BNP, CMP, T7 #### [facility] [address] [address] [address] Suzie Broosk CO2on 01-30-2022 CO2 [Moles/Vol] 29.3 mmol/L Normal 21.0-32.0 [facility] Comment on above: Performed By: #### U DINA, LIPID, TSH, BNP, CMP, T7 #### [facility] [address] [place] [address] Dr. Suzie Brooks CREATININEon 01-30-2022 Creatinine [Mass/Vol] 0.92 mg/dL Normal 0.70-1.30 [facility] Comment on above: Performed By: #### U DINA, LIPID, TSH, BNP, CMP, T7 #### [facility] [address] [address] [address] Suzie Brooks EGFR-AF MAURITIAN >60 Normal >=60 [facility] Comment on above: Performed By: #### U DINA, LIPID, TSH, BNP, CMP, T7 #### [facility] [address] [address] [address] Suzei Brooks EGFR-NON AF MAURITIAN >60 Normal >=60 [facility] Comment on above: Performed By: #### U DINA, LIPID, TSH, BNP, CMP, T7 #### [facility] [address] [address] [address] Suzie Brooks NAon 01-30-2022 Sodium [Moles/Vol] 140 mmol/L Normal 136-145 [facility] Comment on above: Performed By: #### U DINA, LIPID, TSH, BNP, CMP, T7 #### [facility] [address] [place] [address] Dr. Suzie Brooks POTASSIUMon 01-30-2022 Potassium [Moles/Vol] 4.0 mmol/L Normal 3.5-5.1 [facility] Comment on above: Performed By: #### U DINA, LIPID, TSH, BNP, CMP, T7 #### [facility] [address] [place], [place] [address] Dr. Suzie Brooks URIC ACID SERUMon 01-30-2022 Urate [Mass/Vol] 5.2 mg/dL Normal 3.5-7.2 [facility] Comment on above: Performed By: #### U DINA, LIPID, TSH, BNP, CMP, T7 #### [facility] [address] [place], [place] [address] Dr. Suzie Brooks US KIDNEYSon 12-18-2021 US [...] BEHZAD CARRASQUILLO Date: 2021-12-18 09:51 Normal [facility] XR KUB 1 VIEWon 11-21-2021 [...] by: BEHZAD CARRASQUILLO Date: 2021-11-21 09:45 Normal [facility] XR KUBon 11-15-2021 XR KUB [facility] [place] [address] [place] [address] XRay Report Signed Patient: Rizwan Aparicio MR#: [id number] 4 : 1950 Acct:[id number] Age/Sex: 71 / M ADM Date: 11/15/21 Loc: [place] Room: Type: 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 This test has not been [...] is terminated or revoked sooner. PERFORMED BY: [place] [address] PATHOLOGIST COMMUNITY REPRESENTATIVE JIA MINAYA M.D. Performed By: #### C OVID 19 [facility] #### [address] COVID-19 Positive/NegativeOr dered By: Micki Zeng on 11-13-2021 SARS-CoV-2 (COVID-19) N gene SUKHJINDER+probe Ql (Resp) Negative Negative [facility] Comment on above: Testing for SARS-CoV -2 by RT-PCRThis test was developed and its performance characteristics determined by [employer] and validated at the [facility]. This test has not been [...] sooner. CALCULI, URINARYon 2 2,8 Dihydroxyadenine Normal [facility] Comment on above: Performed By: #### U DINA, LIPID, TSH, BNP, CMP, T7 #### [facility] [address] [address] [address] Suzie Brooks Ammonium Acid Urate Normal [facility] Comment on above: Performed By: #### U DINA, LIPID, TSH, BNP, CMP, T7 #### [facility] [address] [address] [address] Suzie Brooks Bilirubin Ql (U) [facility] Comment on above: Performed By: #### U DINA, LIPID, TSH, BNP, CMP, T7 #### [facility] [address] [address] [address] Suzie Brooks Ca Oxalate Dihydrate Normal [facility] Comment on above: Performed By: #### U DINA, LIPID, TSH, BNP, CMP, T7 #### [facility] [address] [address] [address] Suzie Brooks CaHPO4 (Brushite) [facility] Comment on above: Performed By: #### U DINA, LIPID, TSH, BNP, CMP, T7 #### [facility] [address] [address] [address] Suzie Brooks Calcium Bilirubinate Normal [facility] Comment on above: Performed By: #### U DINA, LIPID, TSH, BNP, CMP, T7 #### [facility] [address] [address] [address] Suzie Brooks Calcium Carbonate Normal [facility] Comment on above: Performed By: #### U DINA, LIPID, TSH, BNP, CMP, T7 #### [facility] [address] [address] [address] Suzie Brooks Calcium Oxalate Monohydrate 70 % Normal [facility] Comment on above: Performed By: #### U DINA, LIPID, TSH, BNP, CMP, T7 #### [facility] [address] [address] [address] Suzie Brooks Calcium Palmitate Normal [facility] Comment on above: Performed By: #### U DINA, LIPID, TSH, BNP, CMP, T7 #### [facility] [address] [address] [address] Suzie Brooks Calcium Phosphate Normal [facility] Comment on above: Performed By: #### U DINA, LIPID, TSH, BNP, CMP, T7 #### [facility] [address] [address] [address] Suzie Brooks Calcium Stearate Normal [facility] Comment on above: Performed By: #### U DINA, LIPID, TSH, BNP, CMP, T7 #### [facility] [address] [address] [address] Suzie Brooks Carbonate Apatite Normal [facility] Comment on above: Performed By: #### U DINA, LIPID, TSH, BNP, CMP, T7 #### [facility] [address] [address] [address] Suzie Brooks Cellular Material Normal [facility] Comment on above: Performed By: #### U DINA, LIPID, TSH, BNP, CMP, T7 #### [facility] [address] [address] [address] Suzie Brooks Cholesterol [facility] Comment on above: Performed By: #### U DINA, LIPID, TSH, BNP, CMP, T7 #### [facility] [address] [address] [address] Suzie Brooks Color (U) Brown Normal [facility] Comment on above: Performed By: #### U DINA, LIPID, TSH, BNP, CMP, T7 #### [facility] [address] [address] [address] Suzie Brooks Comment [facility] Comment on above: Performed By: #### U DINA, LIPID, TSH, BNP, CMP, T7 #### [facility] [address] [address] [address] Suzie Brooks Comment: Comment Normal [facility] Comment on above: Result Comment: Fantasma baez questions regarding Calculi Analysis contact [facility] at: [phone]. Performed By: #### U DINA, LIPID, TSH, BNP, CMP, T7 #### [facility] [address] [address] [address] Suzie Brooks Composition Comment [facility] Comment on above: Result Comment: Perc entage (Represents the % composition) Performed By: #### U DINA, LIPID, TSH, BNP, CMP, T7 #### [facility] [address] [address] [address] Suzie Brooks Cystine [facility] Comment on above: Performed By: #### U DINA, LIPID, TSH, BNP, CMP, T7 #### [facility] [address] [place] [address] Dr. Suzie Brooks Disclaimer: Comment Normal [facility] Comment on above: Result Comment: This test was developed and its performance characteristics determined by [facility]. It has not been cleared or approved by the Food and Drug Administration. Performed By: #### U DINA, LIPID, TSH, BNP, CMP, T7 #### [facility] [address] [place] [address] Dr. Suzie Brooks Dried Blood Normal [facility] Comment on above: Performed By: #### U DINA, LIPID, TSH, BNP, CMP, T7 #### [facility] [address] [place] [address] Dr. Suzie Brooks Drug or Metabolite Normal [facility] Comment on above: Performed By: #### U DINA, LIPID, TSH, BNP, CMP, T7 #### [facility] [address] [address] [address] Suzie Brooks Hydroxyapatite Normal [facility] Comment on above: Performed By: #### U DINA, LIPID, TSH, BNP, CMP, T7 #### [facility] [address] [place] [address] Dr. Suzie Brooks Mg NH4 PO4 (Struvite) [facility] Comment on above: Performed By: #### U DINA, LIPID, TSH, BNP, CMP, T7 #### [facility] [address] [place] [address] Dr. Suzie Brooks MgHPO4 (Newberyite) Normal [facility] Comment on above: Performed By: #### U DINA, LIPID, TSH, BNP, CMP, T7 #### [facility] [address] [address] [address] Suzie Brooks Other component(s) Normal [facility] Comment on above: Performed By: #### U DINA, LIPID, TSH, BNP, CMP, T7 #### [facility] [address] [address] [address] Suzie Brooks PDF . Normal [facility] Comment on above: Performed By: #### U DINA, LIPID, TSH, BNP, CMP, T7 #### [facility] [address] [address] [address] Suzie Brooks Photo Comment [facility] Comment on above: Result Comment: Phot ograph will follow under a separate cover Performed By: #### U DINA, LIPID, TSH, BNP, CMP, T7 #### [facility] [address] [address] [address] Suzie Brooks Please note: Comment Normal [facility] Comment on above: Result Comment: Calc shamika report will follow via computer, mail or balancer scale delivery. Performed By: #### U DINA, LIPID, TSH, BNP, CMP, T7 #### [facility] [address] [address] [address] Suzie Brooks Size 3x2 [facility] Comment on above: Result Comment: Mult iple pieces received. Dimensions of the largest piece reported. Performed By: #### U DINA, LIPID, TSH, BNP, CMP, T7 #### [facility] [address] [address] [address] Suzie Brooks Sodium Acid Urate Normal [facility] Comment on above: Performed By: #### U DINA, LIPID, TSH, BNP, CMP, T7 #### [facility] [address] [address] [address] Suzie Brooks Source Comment [facility] Comment on above: Result Comment: Jessica Reese Performed By: #### U DINA, LIPID, TSH, BNP, CMP, T7 #### [facility] [address] [address] [address] Suzie Brooks Triamterene Normal [facility] Comment on above: Performed By: #### U DINA, LIPID, TSH, BNP, CMP, T7 #### [facility] [address] [address] [address] Suzie Brooks Uric Acid 30 % Normal [facility] Comment on above: Performed By: #### U DINA, LIPID, TSH, BNP, CMP, T7 #### [facility] [address] [address] [address] Suzie Brooks Uric Acid Dihydrate Normal [facility] Comment on above: Performed By: #### U DINA, LIPID, TSH, BNP, CMP, T7 #### [facility] [address] [address] [address] Suzie Brooks Weight 12 mg Normal [facility] Comment on above: Performed By: #### U DINA, LIPID, TSH, BNP, CMP, T7 #### [facility] [address] [address] [address] Suzie Brooks Xanthine Normal [facility] Comment on above: Performed By: #### U DINA, LIPID, TSH, BNP, CMP, T7 #### [facility] [address] [address] [address] Suzie Brooks XR KUB 1 VIEWon [...] by: RAFAEL GRAVES Date: 2021-11-12 13:18 Normal [facility] XR CHEST 2 Von 11-08-2021 [...] CARLOS GROSS Date: 2021-11-08 15:50 Normal [facility] CBC AUTO DIFFon 11-07-2021 BASO # 0.0 103/ul Normal 0.0-0.1 [facility] Comment on above: Performed By: #### U DINA, LIPID, TSH, BNP, CMP, T7 #### [facility] [address] [place] [address] Dr. Suzie Brooks Basophils/100 WBC (Bld) 0.2 % Normal 0.2-2.0 [facility] Comment on above: Performed By: #### U DINA, LIPID, TSH, BNP, CMP, T7 #### [facility] [address] [address] [address] Suzie Brooks EO # 0.0 103/ul Normal 0.0-0.7 [facility] Comment on above: Performed By: #### U DINA, LIPID, TSH, BNP, CMP, T7 #### [facility] [address] [place] [address] Dr. Suzie Brooks Eosinophils/100 WBC (Bld) 0.0 % Critically low 0.9-7.0 [facility] Comment on above: Performed By: #### U DINA, LIPID, TSH, BNP, CMP, T7 #### [facility] [address] [address] [address] Suzie Brooks Erythrocyte distribution width (RBC) [Ratio] 14.0 % Normal 11.0-15.0 [facility] Comment on above: Performed By: #### U DINA, LIPID, TSH, BNP, CMP, T7 #### [facility] [address] [place] [address] Dr. Suzie Brooks Hematocrit (Bld) [Volume fraction] 41.8 % Critically low 42.0-54.0 [facility] Comment on above: Performed By: #### U DINA, LIPID, TSH, BNP, CMP, T7 #### [facility] [address] [address] [address] Suzie Brooks Hemoglobin (Bld) [Mass/Vol] 13.7 g/dL Critically low 14.0-18.0 [facility] Comment on above: Performed By: #### U DINA, LIPID, TSH, BNP, CMP, T7 #### [facility] [address] [address] [address] Suzie Brooks IG # 0.14 10e3/ul Critically high 0.00-0.03 [facility] Comment on above: Performed By: #### U DINA, LIPID, TSH, BNP, CMP, T7 #### [facility] [address] [address] [address] Suzie Brooks IG % 0.9 % Critically high 0.0-0.5 [facility] Comment on above: Performed By: #### U DINA, LIPID, TSH, BNP, CMP, T7 #### [facility] [address] [address] [address] Suzie Brooks LYMPH # 1.6 103/ul Normal 1.2-3.8 [facility] Comment on above: Performed By: #### U DINA, LIPID, TSH, BNP, CMP, T7 #### [facility] [address] [address] [address] Suzie Brooks Lymphocytes/100 WBC (Bld) 10.2 % Critically low 20.5-60.0 [facility] Comment on above: Performed By: #### U DINA, LIPID, TSH, BNP, CMP, T7 #### [facility] [address] [address] [address] Suzie Brooks MANUAL DIFF REQ NO Normal [facility] Comment on above: Performed By: #### U DINA, LIPID, TSH, BNP, CMP, T7 #### [facility] [address] [address] [address] Suzie Brooks MCH (RBC) [Entitic mass] 28.8 pg Normal 25.9-34.0 [facility] Comment on above: Performed By: #### U DINA, LIPID, TSH, BNP, CMP, T7 #### [facility] [address] [place] [address] Dr. Suzie Brooks MCHC (RBC) [Mass/Vol] 32.8 g/dL Normal 29.9-35.2 [facility] Comment on above: Performed By: #### U DINA, LIPID, TSH, BNP, CMP, T7 #### [facility] [address] [address] [address] Suzie Brooks MCV (RBC) [Entitic vol] 87.8 fL Normal 80.0-94.0 [facility] Comment on above: Performed By: #### U DINA, LIPID, TSH, BNP, CMP, T7 #### [facility] [address] [place] [address] Dr. Suzie Brooks MONO # 1.0 103/ul Critically high 0.3-0.8 [facility] Comment on above: Performed By: #### U DINA, LIPID, TSH, BNP, CMP, T7 #### [facility] [address] [place] [address] Dr. Suzie Brooks Monocytes/100 WBC (Bld) 6.6 % Normal 1.7-12.0 [facility] Comment on above: Performed By: #### U DINA, LIPID, TSH, BNP, CMP, T7 #### [facility] [address] [place] [address] Dr. Suzie Brooks NEUT # 13.0 103/ul Critically high 1.4-6.5 [facility] Comment on above: Performed By: #### U DINA, LIPID, TSH, BNP, CMP, T7 #### [facility] [address] [place] [address] Dr. Suzie Brooks Neutrophils/100 WBC (Bld) 82.1 % Critically high 43.0-75.0 [facility] Comment on above: Performed By: #### U DINA, LIPID, TSH, BNP, CMP, T7 #### [facility] [address] [place] [address] Dr. Suzie Brooks Platelet mean volume (Bld) [Entitic vol] 9.3 fL Critically low 9.5-13.5 [facility] Comment on above: Performed By: #### U DINA, LIPID, TSH, BNP, CMP, T7 #### [facility] [address] [place] [address] Dr. Suzie Brooks PLT 301 103/ul Normal 150-450 [facility] Comment on above: Performed By: #### U DINA, LIPID, TSH, BNP, CMP, T7 #### [facility] [address] [place] [address] Dr. Suzie Brooks RBC 4.76 106/ul Normal 4.70-6.10 [facility] Comment on above: Performed By: #### U DINA, LIPID, TSH, BNP, CMP, T7 #### [facility] [address] [place] [address] Dr. Suzie Brooks WBC 15.9 103/ul Critically high 4.0-11.0 [facility] Comment on above: Performed By: #### U DINA, LIPID, TSH, BNP, CMP, T7 #### [facility] [address] [place] [address] Dr. Suzie Brooks POINT OF CARE GLUCOSEon 10-11 Glucose [Mass/Vol] 128 mg/dL Critically high 74-106 [facility] Comment on above: Performed By: #### U DINA, LIPID, TSH, BNP, CMP, T7 #### [facility] [address] [place] [address] Dr. Suzie Brooks PROF 14(COMP METB)on 022 Albumin [Mass/Vol] 3.1 g/dL Critically low 3.4-5.0 [facility] Comment on above: Performed By: #### M AG24 #### [facility] [address] [place] [address] Dr. Suzie Brooks Albumin/Globulin [Mass ratio] 0.9 {ratio} Normal [facility] Comment on above: Performed By: #### M AG24 #### [facility] [address] [place] [address] Dr. Suzie Brooks ALP [Catalytic activity/Vol] 52 U/L Normal 46-116 [facility] Comment on above: Performed By: #### M AG24 #### [facility] [address] [place] [address] Dr. Suzie Brooks ALT [Catalytic activity/Vol] 39 U/L Normal 16-63 [facility] Comment on above: Performed By: #### M AG24 #### [facility] [address] [address] [address] Suzie Brooks Anion gap [Moles/Vol] 14.7 mmol/L Normal [facility] Comment on above: Performed By: #### M AG24 #### [facility] [address] [place] [address] Dr. Suzie Brooks AST [Catalytic activity/Vol] 27 U/L Normal 15-37 [facility] Comment on above: Performed By: #### M AG24 #### [facility] [address] [place] [address] Dr. Suzie Brooks Bilirubin [Mass/Vol] 0.4 mg/dL Normal 0.2-1.3 [facility] Comment on above: Performed By: #### M AG24 #### [facility] [address] [place] [address] Dr. Suzie Brooks Calcium [Mass/Vol] 7.7 mg/dL Critically low 8.5-10.1 [facility] Comment on above: Performed By: #### M AG24 #### [facility] [address] [place] [address] Dr. Suzie Brooks Chloride [Moles/Vol] 104 mmol/L Normal 98-107 [facility] Comment on above: Performed By: #### M AG24 #### [facility] [address] [address] [address] Suzie Brooks CO2 [Moles/Vol] 23.4 mmol/L Normal 22.0-30.0 [facility] Comment on above: Performed By: #### M AG24 #### [facility] [address] [place] [address] Dr. Suzie Brooks Creatinine [Mass/Vol] 1.03 mg/dL Normal 0.66-1.25 [facility] Comment on above: Performed By: #### M AG24 #### [facility] [address] [address] [address] Suzie Brooks EGFR-AF MAURITIAN >60 Normal >=60 [facility] Comment on above: Performed By: #### M AG24 #### [facility] [address] [address] [address] Suzie Brooks EGFR-NON AF MAURITIAN >60 Normal >=60 [facility] Comment on above: Performed By: #### M AG24 #### [facility] [address] [address] [address] Suzie Brooks Globulin (S) [Mass/Vol] 3.5 g/dL Normal [facility] Comment on above: Performed By: #### M AG24 #### [facility] [address] [place] [address] Dr. Suzie Brooks Glucose [Mass/Vol] 142 mg/dL Critically high 74-106 [facility] Comment on above: Performed By: #### M AG24 #### [facility] [address] [address] [address] Suzie Brooks Potassium [Moles/Vol] 4.1 mmol/L Normal 3.4-5.0 [facility] Comment on above: Performed By: #### M AG24 #### [facility] [address] [place] [address] Dr. Suzie Brooks Protein [Mass/Vol] 6.6 g/dL Normal 6.1-8.2 [facility] Comment on above: Performed By: #### M AG24 #### [facility] [address] [place] [address] Dr. Suzie Brooks Sodium [Moles/Vol] 138 mmol/L Normal 137-145 [facility] Comment on above: Performed By: #### M AG24 #### [facility] [address] [place] [address] Dr. Suzie Brooks Urea nitrogen [Mass/Vol] 15.0 mg/dL Normal 7.0-18.0 [facility] Comment on above: Performed By: #### M AG24 #### [facility] [address] [place] [address] Dr. Suzie Brooks Urea nitrogen/Creatinine [Mass ratio] 14.6 mg/mg Normal [facility] Comment on above: Performed By: #### M AG24 #### [facility] [address] [place] [address] Dr. Suzie Brooks CBC AUTO DIFFon 11-06-2021 BASO # 0.1 103/ul Normal 0.0-0.1 [facility] Comment on above: Performed By: #### U DINA, LIPID, TSH, BNP, CMP, T7 #### [facility] [address] [place] [address] Dr. Suzie Brooks Basophils/100 WBC (Bld) 0.5 % Normal 0.2-2.0 [facility] Comment on above: Performed By: #### U DINA, LIPID, TSH, BNP, CMP, T7 #### [facility] [address] [place] [address] Dr. Suzie Brooks EO # 0.3 103/ul Normal 0.0-0.7 [facility] Comment on above: Performed By: #### U DINA, LIPID, TSH, BNP, CMP, T7 #### [facility] [address] [place] [address] Dr. Suzie Brooks Eosinophils/100 WBC (Bld) 2.1 % Normal 0.9-7.0 [facility] Comment on above: Performed By: #### U DINA, LIPID, TSH, BNP, CMP, T7 #### [facility] [address] [place] [address] Dr. Suzie Brooks Erythrocyte distribution width (RBC) [Ratio] 13.8 % Normal 11.0-15.0 [facility] Comment on above: Performed By: #### U DINA, LIPID, TSH, BNP, CMP, T7 #### [facility] [address] [place] [address] Dr. Suzie Brooks Hematocrit (Bld) [Volume fraction] 46.9 % Normal 42.0-54.0 [facility] Comment on above: Performed By: #### U DINA, LIPID, TSH, BNP, CMP, T7 #### [facility] [address] [place] [address] Dr. Suzie Brooks Hemoglobin (Bld) [Mass/Vol] 15.4 g/dL Normal 14.0-18.0 [facility] Comment on above: Performed By: #### U DINA, LIPID, TSH, BNP, CMP, T7 #### [facility] [address] [place] [address] Dr. Suzie Brooks IG # 0.05 10e3/ul Critically high 0.00-0.03 [facility] Comment on above: Performed By: #### U DINA, LIPID, TSH, BNP, CMP, T7 #### [facility] [address] [place] [address] Dr. Suzie Brooks IG % 0.4 % Normal 0.0-0.5 [facility] Comment on above: Performed By: #### U DINA, LIPID, TSH, BNP, CMP, T7 #### [facility] [address] [place] [address] Dr. Suzie Brooks LYMPH # 2.8 103/ul Normal 1.2-3.8 [facility] Comment on above: Performed By: #### U DINA, LIPID, TSH, BNP, CMP, T7 #### [facility] [address] [place] [address] Dr. Suzie Brooks Lymphocytes/100 WBC (Bld) 22.5 % Normal 20.5-60.0 [facility] Comment on above: Performed By: #### U DINA, LIPID, TSH, BNP, CMP, T7 #### [facility] [address] [place] [address] Dr. Suzie Brooks MANUAL DIFF REQ NO Normal [facility] Comment on above: Performed By: #### U DINA, LIPID, TSH, BNP, CMP, T7 #### [facility] [address] [place] [address] Dr. Suzie Brooks MCH (RBC) [Entitic mass] 28.6 pg Normal 25.9-34.0 [facility] Comment on above: Performed By: #### U DINA, LIPID, TSH, BNP, CMP, T7 #### [facility] [address] [place] [address] Dr. Suzie Brooks MCHC (RBC) [Mass/Vol] 32.8 g/dL Normal 29.9-35.2 [facility] Comment on above: Performed By: #### U DINA, LIPID, TSH, BNP, CMP, T7 #### [facility] [address] [place] [address] Dr. Suzie Brooks MCV (RBC) [Entitic vol] 87.0 fL Normal 80.0-94.0 [facility] Comment on above: Performed By: #### U DINA, LIPID, TSH, BNP, CMP, T7 #### [facility] [address] [place] [address] Dr. Suzie Brooks MONO # 0.9 103/ul Critically high 0.3-0.8 [facility] Comment on above: Performed By: #### U DINA, LIPID, TSH, BNP, CMP, T7 #### [facility] [address] [place] [address] Dr. Suzie Brooks Monocytes/100 WBC (Bld) 6.9 % Normal 1.7-12.0 [facility] Comment on above: Performed By: #### U DINA, LIPID, TSH, BNP, CMP, T7 #### [facility] [address] [place] [address] Dr. Suzie Brooks NEUT # 8.4 103/ul Critically high 1.4-6.5 [facility] Comment on above: Performed By: #### U DINA, LIPID, TSH, BNP, CMP, T7 #### [facility] [address] [place] [address] Dr. Suzie Brooks Neutrophils/100 WBC (Bld) 67.6 % Normal 43.0-75.0 [facility] Comment on above: Performed By: #### U DINA, LIPID, TSH, BNP, CMP, T7 #### [facility] [address] [place] [address] Dr. Suzie Brooks Platelet mean volume (Bld) [Entitic vol] 9.6 fL Normal 9.5-13.5 [facility] Comment on above: Performed By: #### U DINA, LIPID, TSH, BNP, CMP, T7 #### [facility] [address] [place] [address] Dr. Suzie Brooks PLT 284 103/ul Normal 150-450 [facility] Comment on above: Performed By: #### U DINA, LIPID, TSH, BNP, CMP, T7 #### [facility] [address] [place] [address] Dr. Suzie Brooks RBC 5.39 106/ul Normal 4.70-6.10 [facility] Comment on above: Performed By: #### U DINA, LIPID, TSH, BNP, CMP, T7 #### [facility] [address] [place] [address] Dr. Suzie Brooks WBC 12.5 103/ul Critically high 4.0-11.0 [facility] Comment on above: Performed By: #### U DINA, LIPID, TSH, BNP, CMP, T7 #### [facility] [address] [place] [address] Dr. Suzie Brooks CULTURE BLOODon 11-06-2021 Microscopic examination of blood, culture Culture Observations: NO GROWTH AT 5 DAYS. Normal [facility] Comment on above: Performed By: #### M AG24 #### [facility] [address] [place] [address] Dr. Suzie Brooks CULTURE URINEon 11-06-2021 CULTURE URINE Culture Observations : NO GROWTH. Normal [facility] Comment on above: Performed By: #### M AG24 #### [facility] [address] [place] [address] Dr. Suzie Brooks Covid-19 PCR (CVDTB)on 10-10 SARS-CoV-2 (COVID-19) RNA SUKHJINDER+probe Ql (Unsp spec) Not detected Normal NOT DETECTED [facility] Comment on above: Result Comment: When diagnostic testing is negative, the possibility of a false negative should be considered in the context of a patient's recent exposures and the presence of clinical signs and symptoms consistent with SARS-CoV-2. This test is not yet approved or cleared by the [place] Food and Drug Administration (FDA). This test was developed by [employer], [place], [place]. The performance characteristics of this test were validated by [facility]. The results are not intended to be used as the sole means for clinical diagnosis or patient management decisions. [facility] is authorized under Clinical Laboratory [...] for this test is supported by the [employer] Operator of Health and Human Service's declaration that [...] DINA, LIPID, TSH, BNP, CMP, T7 #### [facility] [address] [place] [address] Dr. Suzie Brooks ER URINE PROFILEon 2 Bilirubin Ql (U) Negative Normal NEGATIVE [facility] Comment on above: Performed By: #### U DINA, LIPID, TSH, BNP, CMP, T7 #### [facility] [address] [place] [address] Dr. Suzie Brooks Clarity (U) CLEAR Normal CLEAR [facility] Comment on above: Performed By: #### U DINA, LIPID, TSH, BNP, CMP, T7 #### [facility] [address] [place] [address] Dr. Suzie Brooks Color (U) YELLOW Normal YELLOW [facility] Comment on above: Performed By: #### U DINA, LIPID, TSH, BNP, CMP, T7 #### [facility] [address] [place] [address] Dr. Suzie Brooks ERUAHD A micrscopic examina tion will be performed if indicated. Normal [facility] Comment on above: Performed By: #### U DINA, LIPID, TSH, BNP, CMP, T7 #### [facility] [address] [address] [address] Suzie Brooks Glucose Ql (U) Negative Normal NEGATIVE [facility] Comment on above: Performed By: #### U DINA, LIPID, TSH, BNP, CMP, T7 #### [facility] [address] [address] [address] Suzie Brooks Hemoglobin Ql (U) LARGE Abnormal NEGATIVE [facility] Comment on above: Performed By: #### U DINA, LIPID, TSH, BNP, CMP, T7 #### [facility] [address] [place] [address] Dr. Suzie Brooks Ketones Ql (U) Negative Normal NEGATIVE [facility] Comment on above: Performed By: #### U DINA, LIPID, TSH, BNP, CMP, T7 #### [facility] [address] [place] [address] Dr. Suzie Brooks LEUKOCYTES TRACE Abnormal NEGATIVE [facility] Comment on above: Performed By: #### U DINA, LIPID, TSH, BNP, CMP, T7 #### [facility] [address] [place] [address] Dr. Suzie Brooks Nitrite Ql (U) Negative Normal NEGATIVE [facility] Comment on above: Performed By: #### U DINA, LIPID, TSH, BNP, CMP, T7 #### [facility] [address] [place] [address] Dr. Suzie Brooks pH (U) 5.0 [pH] Normal 5-9 [facility] Comment on above: Performed By: #### U DINA, LIPID, TSH, BNP, CMP, T7 #### [facility] [address] [address] [address] Suzie Brooks Protein (U) [Mass/Vol] 100 mg/dL Abnormal NEGATIVE/ TRACE [facility] Comment on above: Performed By: #### U DINA, LIPID, TSH, BNP, CMP, T7 #### [facility] [address] [place] [address] Dr. Suzie Brooks SPEC GRAVITY 1.030 Abnormal 1.005-<=1.02 5 [facility] Comment on above: Performed By: #### U DINA, LIPID, TSH, BNP, CMP, T7 #### [facility] [address] [address] [address] Suzie Brooks UR MICRO IND INDICATED Normal [facility] Comment on above: Performed By: #### U DINA, LIPID, TSH, BNP, CMP, T7 #### [facility] [address] [address] [address] Suzie Brooks Urobilinogen Qn (U) 0.2 {Behzad'U}/dL Normal 0.2 - 1. 0 [facility] Comment on above: Performed By: #### U DINA, LIPID, TSH, BNP, CMP, T7 #### [facility] [address] [address] [address] Suzie Brooks LACTATE/LACTIC ACIDon 2021 Lactate [Moles/Vol] 1.0 mmol/L Normal 0.7-2.0 [facility] Comment on above: Performed By: #### U DINA, LIPID, TSH, BNP, CMP, T7 #### [facility] [address] [place] [address] Dr. Suzie Brooks PROF 14(COMP METB)on 022 Albumin [Mass/Vol] 3.8 g/dL Normal 3.4-5.0 [facility] Comment on above: Performed By: #### U DINA, LIPID, TSH, BNP, CMP, T7 #### [facility] [address] [place] [address] Dr. Suzie Brooks Albumin/Globulin [Mass ratio] 1.0 {ratio} Normal [facility] Comment on above: Performed By: #### U DINA, LIPID, TSH, BNP, CMP, T7 #### [facility] [address] [place] [address] Dr. Suzie Brooks ALP [Catalytic activity/Vol] 66 U/L Normal 46-116 [facility] Comment on above: Performed By: #### U DINA, LIPID, TSH, BNP, CMP, T7 #### [facility] [address] [place] [address] Dr. Suzie Brooks ALT [Catalytic activity/Vol] 52 U/L Normal 16-63 [facility] Comment on above: Performed By: #### U DINA, LIPID, TSH, BNP, CMP, T7 #### [facility] [address] [address] [address] Suzie Brooks Anion gap [Moles/Vol] 14.7 mmol/L Normal [facility] Comment on above: Performed By: #### U DINA, LIPID, TSH, BNP, CMP, T7 #### [facility] [address] [address] [address] Suzie Brooks AST [Catalytic activity/Vol] 40 U/L Critically high 15-37 [facility] Comment on above: Performed By: #### U DINA, LIPID, TSH, BNP, CMP, T7 #### [facility] [address] [place] [address] Dr. Suzie Brooks Bilirubin [Mass/Vol] 0.6 mg/dL Normal 0.2-1.3 [facility] Comment on above: Performed By: #### U DINA, LIPID, TSH, BNP, CMP, T7 #### [facility] [address] [address] [address] Suzie Brooks Calcium [Mass/Vol] 8.2 mg/dL Critically low 8.5-10.1 [facility] Comment on above: Performed By: #### U DINA, LIPID, TSH, BNP, CMP, T7 #### [facility] [address] [address] [address] Suzie Brooks Chloride [Moles/Vol] 102 mmol/L Normal 98-107 [facility] Comment on above: Performed By: #### U DINA, LIPID, TSH, BNP, CMP, T7 #### [facility] [address] [address] [address] Suzie Brooks CO2 [Moles/Vol] 27.4 mmol/L Normal 22.0-30.0 [facility] Comment on above: Performed By: #### U DINA, LIPID, TSH, BNP, CMP, T7 #### [facility] [address] [place] [address] Dr. Suzie Brooks Creatinine [Mass/Vol] 1.05 mg/dL Normal 0.66-1.25 [facility] Comment on above: Performed By: #### U DINA, LIPID, TSH, BNP, CMP, T7 #### [facility] [address] [address] [address] Suzie Brooks EGFR-AF MAURITIAN >60 Normal >=60 [facility] Comment on above: Performed By: #### U DINA, LIPID, TSH, BNP, CMP, T7 #### [facility] [address] [address] [address] Suzie Brooks EGFR-NON AF MAURITIAN >60 Normal >=60 [facility] Comment on above: Performed By: #### U DINA, LIPID, TSH, BNP, CMP, T7 #### [facility] [address] [address] [address] Suzie Brooks Globulin (S) [Mass/Vol] 3.7 g/dL Normal [facility] Comment on above: Performed By: #### U DINA, LIPID, TSH, BNP, CMP, T7 #### [facility] [address] [place] [address] Dr. Suzie Brooks Glucose [Mass/Vol] 124 mg/dL Critically high 74-106 [facility] Comment on above: Performed By: #### U DINA, LIPID, TSH, BNP, CMP, T7 #### [facility] [address] [address] [address] Suzie Brooks Potassium [Moles/Vol] 4.1 mmol/L Normal 3.4-5.0 [facility] Comment on above: Performed By: #### U DINA, LIPID, TSH, BNP, CMP, T7 #### [facility] [address] [address] [address] Suzie Brooks Protein [Mass/Vol] 7.5 g/dL Normal 6.1-8.2 [facility] Comment on above: Performed By: #### U DINA, LIPID, TSH, BNP, CMP, T7 #### [facility] [address] [place] [address] Dr. Suzie Brooks Sodium [Moles/Vol] 140 mmol/L Normal 137-145 [facility] Comment on above: Performed By: #### U DINA, LIPID, TSH, BNP, CMP, T7 #### [facility] [address] [address] [address] Suzie Brooks Urea nitrogen [Mass/Vol] 16.0 mg/dL Normal 7.0-18.0 [facility] Comment on above: Performed By: #### U DINA, LIPID, TSH, BNP, CMP, T7 #### [facility] [address] [address] [address] Suzie Brooks Urea nitrogen/Creatinine [Mass ratio] 15.2 mg/mg Normal [facility] Comment on above: Performed By: #### U DINA, LIPID, TSH, BNP, CMP, T7 #### [facility] [address] [address] [address] Suzie Brooks URINE MICROSCOPIC ONLYon BACTERIA SMALL Abnormal NONE SEEN [facility] Comment on above: Performed By: #### U DINA, LIPID, TSH, BNP, CMP, T7 #### [facility] [address] [place] [address] Dr. Suzie Brooks Bacteria identified Cx Nom (U) INDICATED Normal [facility] Comment on above: Performed By: #### U DINA, LIPID, TSH, BNP, CMP, T7 #### [facility] [address] [place] [address] Dr. Suzie Brooks CAST NONE SEEN Normal NONE SEEN [facility] Comment on above: Performed By: #### U DINA, LIPID, TSH, BNP, CMP, T7 #### [facility] [address] [address] [address] Suzie Brooks Crystals LM Nom (Urine sed) NONE SEEN Normal NONE SEEN [facility] Comment on above: Performed By: #### U DINA, LIPID, TSH, BNP, CMP, T7 #### [facility] [address] [address] [address] Suzie Brooks Epithelial cells LM Ql (Urine sed) RARE Normal NONE SEEN /RARE [facility] Comment on above: Performed By: #### U DINA, LIPID, TSH, BNP, CMP, T7 #### [facility] [address] [address] [address] Suzie Brooks MUCOUS NONE SEEN Normal NONE SEEN [facility] Comment on above: Performed By: #### U DINA, LIPID, TSH, BNP, CMP, T7 #### [facility] [address] [place], [place] [address] Dr. Suzie Brooks RBC 50-75 Abnormal 0-2 [facility] Comment on above: Performed By: #### U DINA, LIPID, TSH, BNP, CMP, T7 #### [facility] [address] [place], [place] [address] Dr. Suzie Brooks WBC 20-50 Abnormal NONE SEEN [facility] Comment on above: Performed By: #### U DINA, LIPID, TSH, BNP, CMP, T7 #### [facility] [address] [place], [place] [address] Dr. Suzie Brooks XR KUB 1 VIEWon [...] BEHZAD SANTOS Date: 2021-11-06 21:58 Normal [facility] XR KUB 1 VIEW EXAMINATION: [...] RAFAEL GRAVES Date: 2021-11-06 08:06 Normal [facility] CBC AUTO DIFFon 11-05-2021 BASO # 0.1 103/ul Normal 0.0-0.1 [facility] Comment on above: Performed By: #### U DINA, LIPID, TSH, BNP, CMP, T7 #### [facility] [address] [address] [address] Suzie Brooks Basophils/100 WBC (Bld) 0.6 % Normal 0.2-2.0 [facility] Comment on above: Performed By: #### U DINA, LIPID, TSH, BNP, CMP, T7 #### [facility] [address] [place] [address] Dr. Suzie Brooks EO # 0.3 103/ul Normal 0.0-0.7 [facility] Comment on above: Performed By: #### U DINA, LIPID, TSH, BNP, CMP, T7 #### [facility] [address] [place] [address] Dr. Suzie Brooks Eosinophils/100 WBC (Bld) 2.2 % Normal 0.9-7.0 [facility] Comment on above: Performed By: #### U DINA, LIPID, TSH, BNP, CMP, T7 #### [facility] [address] [place] [address] Dr. Suzie Brooks Erythrocyte distribution width (RBC) [Ratio] 13.7 % Normal 11.0-15.0 [facility] Comment on above: Performed By: #### U DINA, LIPID, TSH, BNP, CMP, T7 #### [facility] [address] [place] [address] Dr. Suzie Brooks Hematocrit (Bld) [Volume fraction] 49.0 % Normal 42.0-54.0 [facility] Comment on above: Performed By: #### U DINA, LIPID, TSH, BNP, CMP, T7 #### [facility] [address] [place] [address] Dr. Suzie Brooks Hemoglobin (Bld) [Mass/Vol] 15.9 g/dL Normal 14.0-18.0 [facility] Comment on above: Performed By: #### U DINA, LIPID, TSH, BNP, CMP, T7 #### [facility] [address] [place] [address] Dr. Suzie Brooks IG # 0.07 10e3/ul Critically high 0.00-0.03 [facility] Comment on above: Performed By: #### U DINA, LIPID, TSH, BNP, CMP, T7 #### [facility] [address] [place] [address] Dr. Suzie Brooks IG % 0.5 % Normal 0.0-0.5 [facility] Comment on above: Performed By: #### U DINA, LIPID, TSH, BNP, CMP, T7 #### [facility] [address] [place] [address] Dr. Suzie Brooks LYMPH # 3.1 103/ul Normal 1.2-3.8 [facility] Comment on above: Performed By: #### U DINA, LIPID, TSH, BNP, CMP, T7 #### [facility] [address] [place] [address] Dr. Suzie Brooks Lymphocytes/100 WBC (Bld) 23.8 % Normal 20.5-60.0 [facility] Comment on above: Performed By: #### U DINA, LIPID, TSH, BNP, CMP, T7 #### [facility] [address] [place] [address] Dr. Suzie Brooks MANUAL DIFF REQ NO Normal [facility] Comment on above: Performed By: #### U DINA, LIPID, TSH, BNP, CMP, T7 #### [facility] [address] [place] [address] Dr. Suzie Brooks MCH (RBC) [Entitic mass] 28.8 pg Normal 25.9-34.0 [facility] Comment on above: Performed By: #### U DINA, LIPID, TSH, BNP, CMP, T7 #### [facility] [address] [place] [address] Dr. Suzie Brooks MCHC (RBC) [Mass/Vol] 32.4 g/dL Normal 29.9-35.2 [facility] Comment on above: Performed By: #### U DINA, LIPID, TSH, BNP, CMP, T7 #### [facility] [address] [place] [address] Dr. Suzie Brooks MCV (RBC) [Entitic vol] 88.8 fL Normal 80.0-94.0 [facility] Comment on above: Performed By: #### U DINA, LIPID, TSH, BNP, CMP, T7 #### [facility] [address] [address] [address] Suzie Brooks MONO # 0.9 103/ul Critically high 0.3-0.8 [facility] Comment on above: Performed By: #### U DINA, LIPID, TSH, BNP, CMP, T7 #### [facility] [address] [place] [address] Dr. Suzie Brooks Monocytes/100 WBC (Bld) 6.8 % Normal 1.7-12.0 [facility] Comment on above: Performed By: #### U DINA, LIPID, TSH, BNP, CMP, T7 #### [facility] [address] [place] [address] Dr. Suzie Brooks NEUT # 8.7 103/ul Critically high 1.4-6.5 [facility] Comment on above: Performed By: #### U DINA, LIPID, TSH, BNP, CMP, T7 #### [facility] [address] [place] [address] Dr. Suzie Brooks Neutrophils/100 WBC (Bld) 66.1 % Normal 43.0-75.0 [facility] Comment on above: Performed By: #### U DINA, LIPID, TSH, BNP, CMP, T7 #### [facility] [address] [place] [address] Dr. Suzie Brooks Platelet mean volume (Bld) [Entitic vol] 9.4 fL Critically low 9.5-13.5 [facility] Comment on above: Performed By: #### U DINA, LIPID, TSH, BNP, CMP, T7 #### [facility] [address] [place] [address] Dr. Suzie Brooks PLT 278 103/ul Normal 150-450 [facility] Comment on above: Performed By: #### U DINA, LIPID, TSH, BNP, CMP, T7 #### [facility] [address] [place] [address] Dr. Suzie Brooks RBC 5.52 106/ul Normal 4.70-6.10 [facility] Comment on above: Performed By: #### U DINA, LIPID, TSH, BNP, CMP, T7 #### [facility] [address] [place], [place] [address] Dr. Suzie Brooks WBC 13.1 103/ul Critically high 4.0-11.0 [facility] Comment on above: Performed By: #### U DINA, LIPID, TSH, BNP, CMP, T7 #### [facility] [address] [place], [place] [address] ABD/PELVIS WO CONon [...] RAFAEL GRAVES Date: 2021-11-05 11:46 Normal [facility] CULTURE URINEon 11-05-2021 CULTURE URINE Culture Observations : No growth Normal [facility] Comment on above: Performed By: #### M AG24 #### [facility] [address] [place] [address] Dr. Suzie Brooks ER URINE PROFILEon 2 Bilirubin Ql (U) Negative Normal NEGATIVE [facility] Comment on above: Performed By: #### C VDTBH #### [facility] [address] [place] [address] Dr. Suzie Brooks Clarity (U) CLEAR Normal CLEAR [facility] Comment on above: Performed By: #### C VDTBH #### [facility] [address] [place] [address] Dr. Suzie Brooks Color (U) DK. YELLOW Normal YELLOW [facility] Comment on above: Performed By: #### C VDTBH #### [facility] [address] [place] [address] Dr. Suzie Brooks ERUAHD A micrscopic examina tion will be performed if indicated. Normal [facility] Comment on above: Performed By: #### C VDTBH #### [facility] [address] [place] [address] Dr. Suzie Brooks Glucose Ql (U) Negative Normal NEGATIVE [facility] Comment on above: Performed By: #### C VDTBH #### [facility] [address] [place] [address] Dr. Suzie Brooks Hemoglobin Ql (U) LARGE Abnormal NEGATIVE [facility] Comment on above: Performed By: #### C VDTBH #### [facility] [address] [place] [address] Dr. uSzie Brooks Ketones Ql (U) Negative Normal NEGATIVE [facility] Comment on above: Performed By: #### C VDTBH #### [facility] [address] [place] [address] Dr. Suzie Brooks LEUKOCYTES Negative Normal NEGATIVE [facility] Comment on above: Performed By: #### C VDTBH #### [facility] [address] [place] [address] Dr. Suzie Brooks Nitrite Ql (U) Negative Normal NEGATIVE [facility] Comment on above: Performed By: #### C VDTBH #### [facility] [address] [place] [address] Dr. Suzie Brooks pH (U) 5.0 [pH] Normal 5-9 [facility] Comment on above: Performed By: #### C VDTBH #### [facility] [address] [place] [address] Dr. Suzie Brooks Protein (U) [Mass/Vol] 100 mg/dL Abnormal NEGATIVE/ TRACE [facility] Comment on above: Performed By: #### C VDTBH #### [facility] [address] [place] [address] Dr. Suzie Brooks SPEC GRAVITY >=1.030 Abnormal 1.005-<=1.02 5 [facility] Comment on above: Performed By: #### C VDTBH #### [facility] [address] [place] [address] Dr. Suzie Brooks UR MICRO IND INDICATED Normal [facility] Comment on above: Performed By: #### C VDTBH #### [facility] [address] [place] [address] Dr. Suzie Brooks Urobilinogen Qn (U) 0.2 {Behzad'U}/dL Normal 0.2 - 1. 0 [facility] Comment on above: Performed By: #### C VDTBH #### [facility] [address] [place] [address] Dr. Suzie Brooks PROF 14(COMP METB)on 022 Albumin [Mass/Vol] 3.9 g/dL Normal 3.4-5.0 [facility] Comment on above: Performed By: #### U DINA, LIPID, TSH, BNP, CMP, T7 #### [facility] [address] [place] [address] Dr. Suzie Brooks Albumin/Globulin [Mass ratio] 1.1 {ratio} Normal [facility] Comment on above: Performed By: #### U DINA, LIPID, TSH, BNP, CMP, T7 #### [facility] [address] [place] [address] Dr. Suzie Brooks ALP [Catalytic activity/Vol] 64 U/L Normal 46-116 [facility] Comment on above: Performed By: #### U DINA, LIPID, TSH, BNP, CMP, T7 #### [facility] [address] [place] [address] Dr. Suzie Brooks ALT [Catalytic activity/Vol] 57 U/L Normal 16-63 [facility] Comment on above: Performed By: #### U DINA, LIPID, TSH, BNP, CMP, T7 #### [facility] [address] [place] [address] Dr. Suzie Brooks Anion gap [Moles/Vol] 14.4 mmol/L Normal [facility] Comment on above: Performed By: #### U DINA, LIPID, TSH, BNP, CMP, T7 #### [facility] [address] [place] [address] Dr. Suzie Brooks AST [Catalytic activity/Vol] 51 U/L Critically high 15-37 [facility] Comment on above: Performed By: #### U DINA, LIPID, TSH, BNP, CMP, T7 #### [facility] [address] [place] [address] Dr. Suzie Brooks Bilirubin [Mass/Vol] 0.8 mg/dL Normal 0.2-1.3 [facility] Comment on above: Performed By: #### U DINA, LIPID, TSH, BNP, CMP, T7 #### [facility] [address] [place] [address] Dr. Suzie Brooks Calcium [Mass/Vol] 8.5 mg/dL Normal 8.5-10.1 [facility] Comment on above: Performed By: #### U DINA, LIPID, TSH, BNP, CMP, T7 #### [facility] [address] [place] [address] Dr. Suzie Brooks Chloride [Moles/Vol] 103 mmol/L Normal 98-107 [facility] Comment on above: Performed By: #### U DINA, LIPID, TSH, BNP, CMP, T7 #### [facility] [address] [place] [address] Dr. Suzie Brooks CO2 [Moles/Vol] 26.8 mmol/L Normal 22.0-30.0 [facility] Comment on above: Performed By: #### U DINA, LIPID, TSH, BNP, CMP, T7 #### [facility] [address] [address] [address] Suzie Brooks Creatinine [Mass/Vol] 0.98 mg/dL Normal 0.66-1.25 [facility] Comment on above: Performed By: #### U DINA, LIPID, TSH, BNP, CMP, T7 #### [facility] [address] [place] [address] Dr. Suzie Brooks EGFR-AF MAURITIAN >60 Normal >=60 [facility] Comment on above: Performed By: #### U DINA, LIPID, TSH, BNP, CMP, T7 #### [facility] [address] [place] [address] Dr. Suzie Brooks EGFR-NON AF MAURITIAN >60 Normal >=60 [facility] Comment on above: Performed By: #### U DINA, LIPID, TSH, BNP, CMP, T7 #### [facility] [address] [place] [address] Dr. Suzie Brooks Globulin (S) [Mass/Vol] 3.7 g/dL Normal [facility] Comment on above: Performed By: #### U DINA, LIPID, TSH, BNP, CMP, T7 #### [facility] [address] [place] [address] Dr. Suzie Brooks Glucose [Mass/Vol] 118 mg/dL Critically high 74-106 [facility] Comment on above: Performed By: #### U DINA, LIPID, TSH, BNP, CMP, T7 #### [facility] [address] [place] [address] Dr. Suzie Brooks Potassium [Moles/Vol] 4.2 mmol/L Normal 3.4-5.0 [facility] Comment on above: Performed By: #### U DINA, LIPID, TSH, BNP, CMP, T7 #### [facility] [address] [place] [address] Dr. Suzie Brooks Protein [Mass/Vol] 7.6 g/dL Normal 6.1-8.2 [facility] Comment on above: Performed By: #### U DINA, LIPID, TSH, BNP, CMP, T7 #### [facility] [address] [place] [address] Dr. Suzie Brooks Sodium [Moles/Vol] 140 mmol/L Normal 137-145 [facility] Comment on above: Performed By: #### U DINA, LIPID, TSH, BNP, CMP, T7 #### [facility] [address] [place] [address] Dr. Suzie Brooks Urea nitrogen [Mass/Vol] 14.0 mg/dL Normal 7.0-18.0 [facility] Comment on above: Performed By: #### U DINA, LIPID, TSH, BNP, CMP, T7 #### [facility] [address] [place] [address] Dr. Suzie Brooks Urea nitrogen/Creatinine [Mass ratio] 14.3 mg/mg Normal [facility] Comment on above: Performed By: #### U IDNA, LIPID, TSH, BNP, CMP, T7 #### [facility] [address] [place] [address] Dr. Suzie Brooks URINE MICROSCOPIC ONLYon BACTERIA MODERATE Abnormal NONE SEEN [facility] Comment on above: Performed By: #### C VDTBH #### [facility] [address] [place] [address] Dr. Suzie Brooks Bacteria identified Cx Nom (U) INDICATED Normal [facility] Comment on above: Performed By: #### C VDTBH #### [facility] [address] [place] [address] Dr. Suzie Brooks CAST SEEN Abnormal NONE SEEN [facility] Comment on above: Performed By: #### C VDTBH #### [facility] [address] [place] [address] Dr. Suzie Brooks Crystals LM Nom (Urine sed) NONE SEEN Normal NONE SEEN [facility] Comment on above: Performed By: #### C VDTBH #### [facility] [address] [place] [address] Dr. Suzie Brooks Epithelial cells LM Ql (Urine sed) RARE Normal NONE SEEN /RARE [facility] Comment on above: Performed By: #### C VDTBH #### [facility] [address] [address] [address] Suzie Brooks HYALINE CAST RARE Normal [facility] Comment on above: Performed By: #### C VDTBH #### [facility] [address] [address] [address] Suzie Brooks MUCOUS NONE SEEN Normal NONE SEEN [facility] Comment on above: Performed By: #### C VDTBH #### [facility] [address] [address] [address] Suzie Brooks RBC (U) [#/Vol] /uL Abnormal 0-2 [facility] Comment on above: Performed By: #### C VDTBH #### [facility] [address] [place] [address] Dr. Suzie Brooks WBC NONE SEEN Normal NONE SEEN [facility] Comment on above: Performed By: #### C VDTBH #### [facility] [address] [place] [address] Dr. Suzie Brooks XR KUB 1 VIEWon [...] BEHZAD CARRASQUILLO Date: 2021-11-01 12:07 Normal [facility] CBC AUTO DIFFon 10-26-2021 BASO # 0.1 103/ul Normal 0.0-0.1 [facility] Comment on above: Performed By: #### U DINA, LIPID, TSH, BNP, CMP, T7 #### [facility] [address] [address] [address] Suzie Brooks Basophils/100 WBC (Bld) 0.7 % Normal 0.2-2.0 [facility] Comment on above: Performed By: #### U DINA, LIPID, TSH, BNP, CMP, T7 #### [facility] [address] [place] [address] Dr. Suzie Brooks EO # 0.2 103/ul Normal 0.0-0.7 [facility] Comment on above: Performed By: #### U DINA, LIPID, TSH, BNP, CMP, T7 #### [facility] [address] [place] [address] Dr. Suzie Brooks Eosinophils/100 WBC (Bld) 1.5 % Normal 0.9-7.0 [facility] Comment on above: Performed By: #### U DINA, LIPID, TSH, BNP, CMP, T7 #### [facility] [address] [place] [address] Dr. Suzie Brooks Erythrocyte distribution width (RBC) [Ratio] 13.9 % Normal 11.0-15.0 [facility] Comment on above: Performed By: #### U DINA, LIPID, TSH, BNP, CMP, T7 #### [facility] [address] [place] [address] Dr. Suzie Brooks Hematocrit (Bld) [Volume fraction] 47.5 % Normal 42.0-54.0 [facility] Comment on above: Performed By: #### U DINA, LIPID, TSH, BNP, CMP, T7 #### [facility] [address] [place] [address] Dr. Suzie Brooks Hemoglobin (Bld) [Mass/Vol] 15.5 g/dL Normal 14.0-18.0 [facility] Comment on above: Performed By: #### U DINA, LIPID, TSH, BNP, CMP, T7 #### [facility] [address] [place] [address] Dr. Suzie Brooks IG # 0.06 10e3/ul Critically high 0.00-0.03 [facility] Comment on above: Performed By: #### U DINA, LIPID, TSH, BNP, CMP, T7 #### [facility] [address] [place] [address] Dr. Suzie Brooks IG % 0.5 % Normal 0.0-0.5 [facility] Comment on above: Performed By: #### U DINA, LIPID, TSH, BNP, CMP, T7 #### [facility] [address] [place] [address] Dr. Suzie Brooks LYMPH # 2.6 103/ul Normal 1.2-3.8 [facility] Comment on above: Performed By: #### U DINA, LIPID, TSH, BNP, CMP, T7 #### [facility] [address] [place] [address] Dr. Suzie Brooks Lymphocytes/100 WBC (Bld) 23.1 % Normal 20.5-60.0 [facility] Comment on above: Performed By: #### U DINA, LIPID, TSH, BNP, CMP, T7 #### [facility] [address] [place] [address] Dr. Suzie Brooks MANUAL DIFF REQ NO Normal [facility] Comment on above: Performed By: #### U DINA, LIPID, TSH, BNP, CMP, T7 #### [facility] [address] [place] [address] Dr. Suzie Brooks MCH (RBC) [Entitic mass] 28.9 pg Normal 25.9-34.0 [facility] Comment on above: Performed By: #### U DINA, LIPID, TSH, BNP, CMP, T7 #### [facility] [address] [place] [address] Dr. Suzie Brooks MCHC (RBC) [Mass/Vol] 32.6 g/dL Normal 29.9-35.2 [facility] Comment on above: Performed By: #### U DINA, LIPID, TSH, BNP, CMP, T7 #### [facility] [address] [place] [address] Dr. Suzie Brooks MCV (RBC) [Entitic vol] 88.5 fL Normal 80.0-94.0 [facility] Comment on above: Performed By: #### U DINA, LIPID, TSH, BNP, CMP, T7 #### [facility] [address] [place] [address] Dr. Suzie Brooks MONO # 0.9 103/ul Critically high 0.3-0.8 [facility] Comment on above: Performed By: #### U DINA, LIPID, TSH, BNP, CMP, T7 #### [facility] [address] [address] [address] Suzie Brooks Monocytes/100 WBC (Bld) 7.9 % Normal 1.7-12.0 [facility] Comment on above: Performed By: #### U DINA, LIPID, TSH, BNP, CMP, T7 #### [facility] [address] [address] [address] Suzie Brooks NEUT # 7.4 103/ul Critically high 1.4-6.5 [facility] Comment on above: Performed By: #### U DINA, LIPID, TSH, BNP, CMP, T7 #### [facility] [address] [place] [address] Dr. Suzie Brooks Neutrophils/100 WBC (Bld) 66.3 % Normal 43.0-75.0 [facility] Comment on above: Performed By: #### U DINA, LIPID, TSH, BNP, CMP, T7 #### [facility] [address] [address] [address] Suzie Brooks Platelet mean volume (Bld) [Entitic vol] 9.6 fL Normal 9.5-13.5 [facility] Comment on above: Performed By: #### U DINA, LIPID, TSH, BNP, CMP, T7 #### [facility] [address] [place] [address] Dr. Suzie Brooks PLT 252 103/ul Normal 150-450 [facility] Comment on above: Performed By: #### U DINA, LIPID, TSH, BNP, CMP, T7 #### [facility] [address] [address] [address] Suzie Brooks RBC 5.37 106/ul Normal 4.70-6.10 [facility] Comment on above: Performed By: #### U DINA, LIPID, TSH, BNP, CMP, T7 #### [facility] [address] [address] [address] Suzie Brooks WBC 11.2 103/ul Critically high 4.0-11.0 [facility] Comment on above: Performed By: #### U DINA, LIPID, TSH, BNP, CMP, T7 #### [facility] [address] [place] [address] Dr. Suzie Brooks Covid-19 PCR ([facility])on 10-09 SARS-CoV-2 (COVID-19) RNA SUKHJINDER+probe Ql (Unsp spec) Not detected Normal NOT DETECTED [facility] Comment on above: Result Comment: This test is not yet approved or cleared by the [place] FDA. When there are no FDA-approved or cleared tests available, and other criteria are met, FDA can make tests available under an emergency access mechanism called an Emergency Use Authorization (EUA). The EUA for this test is supported by the [place] of Health and Human Service's (HHS's) declaration [...] DINA, LIPID, TSH, BNP, CMP, T7 #### [facility] [address] [address] [address] Suzie Brooks PROF CHEM 8 (BAS METB)on Anion gap [Moles/Vol] 7.7 mmol/L Normal [facility] Comment on above: Performed By: #### C VDTBH #### [facility] [address] [place] [address] Dr. Suzie Brooks Calcium [Mass/Vol] 8.6 mg/dL Normal 8.5-10.1 [facility] Comment on above: Performed By: #### C VDTBH #### [facility] [address] [place] [address] Dr. Suzie Brooks Chloride [Moles/Vol] 104 mmol/L Normal 98-107 [facility] Comment on above: Performed By: #### C VDTBH #### [facility] [address] [address] [address] Suzie Brooks CO2 [Moles/Vol] 31.8 mmol/L Critically high 22.0-30.0 [facility] Comment on above: Performed By: #### C VDTBH #### [facility] [address] [place] [address] Dr. Suzie Brooks Creatinine [Mass/Vol] 0.99 mg/dL Normal 0.66-1.25 [facility] Comment on above: Performed By: #### C VDTBH #### [facility] [address] [place] [address] Dr. Suzie Brooks EGFR-AF MAURITIAN >60 Normal >=60 [facility] Comment on above: Performed By: #### C VDTBH #### [facility] [address] [place] [address] Dr. Suzie Brooks EGFR-NON AF MAURITIAN >60 Normal >=60 [facility] Comment on above: Performed By: #### C VDTBH #### [facility] [address] [place] [address] Dr. Suzie Brooks Glucose [Mass/Vol] 94 mg/dL Normal 74-106 [facility] Comment on above: Performed By: #### C VDTBH #### [facility] [address] [place] [address] Dr. Suzie Brooks Potassium [Moles/Vol] 4.5 mmol/L Normal 3.4-5.0 [facility] Comment on above: Performed By: #### C VDTBH #### [facility] [address] [place] [address] Dr. Suzie Brooks Sodium [Moles/Vol] 139 mmol/L Normal 137-145 [facility] Comment on above: Performed By: #### C VDTBH #### [facility] [address] [place] [address] Dr. Suzie Brooks Urea nitrogen [Mass/Vol] 12.0 mg/dL Normal 7.0-18.0 [facility] Comment on above: Performed By: #### C VDTBH #### [facility] [address] [place] [address] Dr. Suzie Brooks Urea nitrogen/Creatinine [Mass ratio] 12.1 mg/mg Normal [facility] Comment on above: Performed By: #### C VDTBH #### [facility] [address] [place] [address] Dr. Suzie Brooks PROTIMEon 10-26-2021 INR Coag (PPP) [Relative time] 0.99 {INR} Normal [facility] Comment on above: Performed By: #### C VDTBH #### [facility] [address] [place] [address] Dr. Suzie Brooks INR GUIDELINES SEE BELOW Normal [facility] Comment on above: Result Comment: TOMMY RED INR: 2.0 - 3.0 CONDITIONS NOT LISTED BELOW 2.5 - 3.5 FOR PROSTHETIC HEART VALVE REPLACEMENT 2.5 - 3.5 RECURRENT THROMBOSIS Performed By: #### C VDTBH #### [facility] [address] [place] [address] Dr. Suzie Brooks PT Coag (PPP) [Time] 10.7 s Normal 9.0-11.6 [facility] Comment on above: Performed By: #### C VDTBH #### [facility] [address] [place] [address] Dr. Suzie Brooks PTTon 10-26-2021 aPTT Coag (Bld) [Time] 26.4 s Normal 22.3-36.2 [facility] Comment on above: Performed By: #### C VDTBH #### [facility] [address] [place] [address] Dr. Suzie Brooks XR KUB 1 VIEWon [...] by: RAFAEL GRAVES Date: 2021-10-17 13:26 Normal [facility] Vital Signs Date Time Vital Sign Value Performing Clinician Dario mcdonough 04-16-2024 11:38-0400 Blood Pressure Location Micki Edvivo [facility] 04-16-2024 11:38-0400 Diastolic blood pressure 75 mm[Hg] Micki Edvivo [facility] 04-16-2024 11:38-0400 Heart rate 96 /min Micki Edvivo [facility] 04-16-2024 11:38-0400 Respiratory rate 18 /min Micki ZENG [facility] 04-16-2024 11:38-0400 Systolic blood pressure 131 mm[Hg] Micki Edvivo [facility] 04-01-2024 15:04-0400 Body height 182.9 cm [employer] Work Phone: [facility] 04-01-2024 15:04-0400 Body mass index (BMI) [Ratio] 39.33 kg/m2 [employer] DO Work Phone: [facility] 04-01-2024 15:04-0400 Body weight 131.54 kg [employer] Work Phone: [facility] 04-01-2024 15:04-0400 Diastolic blood pressure 92 mm[Hg] [employer] Work Phone: [facility] 04-01-2024 15:04-0400 Systolic blood pressure 140 mm[Hg] [employer] DO Work Phone: [facility] 04-11-2023 11:55-0400 Blood Pressure Location Micki ZENG [facility] 04-11-2023 11:55-0400 Diastolic blood pressure 76 mm[Hg] Micki ZENG [facility] 04-11-2023 11:55-0400 Heart rate 80 /min Micki ZENG [facility] 04-11-2023 11:55-0400 Respiratory rate 16 /min Micki ZENG [facility] 04-11-2023 11:55-0400 Systolic blood pressure 134 mm[Hg] Micki ZENG [facility] 02-25-2022 14:20-0400 Blood Pressure Location Micki ZENG [facility] 02-25-2022 14:20-0400 Diastolic blood pressure 100 mm[Hg] Micki ZENG [facility] 02-25-2022 14:20-0400 Heart rate 86 /min Micki ZENG [facility] 02-25-2022 14:20-0400 Respiratory rate 16 /min Micki ZENG [facility] 02-25-2022 14:20-0400 Systolic blood pressure 155 mm[Hg] Micki ZENG [facility] Encounters Encounter Date Encounter Type Care Provider Facility Start: 04-15-2025 ambulatory Micki Muhammadi ty:[facility] Start: 04-16-2024 End: 04-16-2024 ambulatory Micki ZENG Facility: [facility] Start: 04-16-2024 End: 04-16-2024 Patient encounter procedure Micki ZENG [facility] Start: 04-01-2024 End: 04-01-2024 Office outpatient visit 15 minutes Christopher Brennon DO Work Phone: [facility] Comment on above: Essential tremor (Pr imary Dx); Essential hypertension (CMS/HCC) Start: 04-01-2024 End: 04-01-2024 ambulatory TRACEY WILLETT Not Available Start: 04-01-2024 End: 04-01-2024 Bamboo flowsheet Uliceser Brennon DO Work Phone: [facility] Start: 04-01-2024 End: 04-01-2024 Bamboo flowsheet Uliceser Brennon DO Work Phone: [facility] Start: 04-11-2023 End: 04-11-2023 Patient encounter procedure Micki ZENG [facility] Start: 08-14-[address] MARIELLE LERMA Facility :[facility] Start: 08-13-[address] MARIELLE LREMA Facility :[facility] Start: 07-26-2022 End: 07-27-[address] MARIELLE LERMA Facility:[facility] Start: 07-18-2022 End: 07-19-[address] MICKI ZENG Facility:[facility] Start: 05-15-2022 End: 05-16-[address] MARIELLE LERMA Facility:[facility] Start: 02-25-2022 End: 02-25-2022 Patient encounter procedure Micki ZENG [facility] [...] encounter procedure MD Marielle Lerma Work Phone: [facility] Start: 11-12-2021 End: 11-13-[address] MICKI ZENG Facility:[facility] Start: 11-06-2021 End: 11-07-[address] MARIELLE LERMA Facility:[facility] Start: 11-05-2021 End: 11-05-[address] MARIELLE LERMA Facility:[facility] Start: 11-01-2021 End: 11-01-[address] MICKI ZENG Facility:[facility] Start: 10-31-2021 Encounter for preprocedural cardiovascular examination DR MICKI ZENG [facility] Start: 10-30-[address] ZENG [facility] ity:[facility]1 Start: 10-26-2021 End: 10-27-[address] MICKI ZENG Facility:[facility] Start: 10-26-2021 End: 10-27-2021 Encounter for preprocedural cardiovascular examination DR MICKI ZENG Facility:[facility] Start: 10-17-2021 End: 10-18-[address] MICKI ZENG Facility:[facility] Procedures Date Procedure Procedure Detail Performing Clinician Start: 05-15-[address] JHONATAN ZENG Comment on above: Performed By: #### U DINA, LIPID, TSH, BNP, CMP, T7 #### [facility] [address] [place] [address] Dr. Suzie Brooks Start: 11-21-2021 Cystoscopy Micki [...] procedure 04/18/2025 2:00 PM EDT Office Visit [facility] [place] [phone] Tracey Willett DO [address] [place] [address] [facility] Start: 04-11-2024 Influenza vaccination Influenza Vacc ine (#1) [facility] Start: 04-01-2024 End: 04-01-2024 Patient encounter procedure 04/01/2024 3:00 PM EDT Office Visit [facility] [address] [place] [phone] BrennonTracey [place], DO [address] [place] [id number] Arrived [facility] [address] Comment on above: Arrived Start: 11-09-2023 Screening for malign ant neoplasm of colon [facility] Start: 05-22-2018 Pneumococcal Vaccine : 65+ Years (2 of 2 - PPSV23 or PCV20) Pneumococcal Vaccine: 65+ Years (2 of 2 - PPSV23 or PCV20) [facility] Start: 1950 Screening for malign ant neoplasm of colon [facility] Immunizations Immunization Date Immunization Notes Care Provider Fa cility 05-31-2022 SARS-CoV-2 (COVID-19 ) [id number] Micki ZENG [facility] Comment on above: Result Comment: 2022: [id number] 12-22-2021 SARS-CoV-2 (COVID-19 ) mRNA-1273 vaccine Micki ZNEG [facility] 06-05-2021 SARS-CoV-2 (COVID-19 ) mRNA-1273 vaccine Micki ZENG [facility] 05-29-2021 influenza virus vaccine, unspecified formulation Micki ZENG [facility] 05-15-2021 influenza virus vaccine, unspecified formulation Micki ZENG [facility] 11-09-2020 SARS-CoV-2 (COVID-19 ) mRNA-1273 vaccine Micki ZENG [facility] 11-01-2020 SARS-CoV-2 (COVID-19 ) mRNA-1273 vaccine Micki ZENG [facility] 10-09-2020 SARS-CoV-2 (COVID-19 ) mRNA-1273 vaccine Micki Edvivo [facility] 10-05-2020 SARS-CoV-2 (COVID-19 ) mRNA-1273 vaccine Micki Edvivo [facility] 05-17-2020 influenza virus vaccine, unspecified formulation Micki Edvivo [facility] 06-24-2019 tetanus toxoid, redu roberto carlos diphtheria toxoid, and acellular pertussis vaccine, adsorbed Micki ZENG [facility] 05-25-2019 influenza virus vaccine, unspecified formulation Micki ZENG [facility] 05-22-2017 influenza virus vaccine, unspecified formulation Micki ZENG [facility] 05-22-2017 pneumococcal conjuga te vaccine, 13 valent Micki ZENG [facility] 05-30-2016 influenza, unspecifi ed formulation Micki ZENG [facility] 11-01-2013 zoster vaccine, live Micki ZENG [facility] 12-18-2005 hepatitis A vaccine, adult dosage Micki Edvivo [facility] 10-18-2005 hepatitis B vaccine, pediatric or pediatric/adolescent dosage Micki ZENG [facility] 10-18-2005 tetanus and diphther ia toxoids, adsorbed, preservative free, for adult use (2 Lf of tetanus toxoid and 2 Lf of diphtheria toxoid) Mickikimberly ZENG [facility] 07-26-2005 hepatitis B vaccine, pediatric or pediatric/adolescent dosage Mickikimberly ZENG [facility] 06-20-2005 hepatitis A vaccine, adult dosage Micki ZENG [facility] 06-20-2005 hepatitis B vaccine, pediatric or pediatric/adolescent dosage Micki ZENG [facility] Payers Date Payer Category Payer Private Health Insurance [employer]IG[employer] MEDICARE SUPPLEMENT [id number] 2024-Present [address] [address] [place] [address] Supplement [id number] 2017 Medicare MEDICARE MEDICAR E RAILROAD [id number] 2017-Present [facility] RAILROAD MEDICARE [address] [address] [place] [address] Medicare [id number] 1959 Medicare [id number] 1959 Private Health Insurance [id number] 1950 Unknown [id number] 2.16.840.1.040561.3.579 .2.593 1952 Unknown [id number] 2.16.840.1.532628.3.579 .2.593 1952 Unknown [id number] 2.16.840.1.340347.3.579 .2.593 1952 Unknown [id number] 2.16.840.1.322624.3.579 .2.593 1952 Unknown [id number] 2.16.840.1.221909.3.579 .2.593 1952 Unknown [id number] 2.16.840.1.074857.3.579 .2.593 1952 Unknown [id number] 2.16.840.1.099453.3.579 .2.593 1952 Unknown [id number] 2.16.840.1.494466.3.579 .2.593 1952 Unknown [id number] 2.16.840.1.486988.3.579 .2.593 1952 Unknown [id number] 2.16.840.1.772358.3.579 .2.593 1952 Unknown [id number] 2.16.840.1.340957.3.579 .2.593 1952 Unknown [id number] 2.16.840.1.827580.3.579 .2.593 1952 Unknown [id number] 2.16.840.1.787292.3.579 .2.593 1952 Unknown [id number] 2.16.840.1.668615.3.579 .2.593 1952 Unknown [id number] 2.16.840.1.421327.3.579 .2.593 1952 Unknown [id number] 2.16.840.1.339025.3.579 .2.593 1952 Unknown [id number] 2.16.840.1.014250.3.579 .2.593 1952 Unknown [id number] 2.16.840.1.913569.3.579 .2.593 1952 Unknown [id number] 2.16.840.1.616192.3.579 .2.1259 1952 Unknown [id number] 2.16.840.1.586079.3.579 .2.727 1952 Unknown [id number] 2.16.840.1.967253.3.579 .2.727 Self-pay Self Pay [id number] Social History Date Type Detail Facility Start: 10-19-2019 End: 04-16-2024 Tobacco smoking status MDIS Ex-smoker (finding) [facility] Start: 1950 Sex Assigned At Male F [facility] Tobacco smoking status Never [facility] Start: 03-28-2024 [facility] At [facility] Start: 03-28-2024 Tobacco smoking stat us [...] 04-16-2024 Functional Status N/A [facility] 04-11-2023 Functional Status N/A [facility] 02-25-2022 Functional Status N/A [facility] Clinical Notes 02-25-2022 to 04-16-2024 Tracey Willett - 04/01/2024 3:00 PM EDT Note Date & Type Note Facility 04-16-2024 Hospital Discharg e instructions Patient Education 04/16/2024 12:25:38 Kidney Stones, Gbog-ck-Mory Kidney Stones Kidney stones are rock-like masses [...] Follow these instructions at home: Medicines Take foaj-dob-guoiylq and prescription medicines only as told by [...] provider. Document Revised: 03/21/2023 Document Reviewed: 03/21/2023 [employer] Patient Education 2023 NEXAGE. Follow Up Care 04/11/2023 12:50:53 With:THOR BATISTA, Micki Cedeño, URL Address: [facility] [address], [place] [address]- [phone] When: Unknown Comments:3 yr w/ ISIDRO [facility] 04-16-2024 Note Patient Education Urology Kidney Stones [...] these instructions at home: Medicines ? Take lzii-dzs-tfndcjf and prescription medicines only as told by [...] provider. Document Revised: 03/21/2023 Document Reviewed: 03/21/2023 [employer] Patient Education ? [address] [facility] 04-01-2024 History of Presen t illness [...] reflexes are 1+ and symmetric throughout. Coordination: Ylnkho-jk-vslv testing and rapid alternating movements are normal Gait: Normal Review and summary of old records: MRI of the brain at [facility] 03/10/18: Mild age-related atrophy. No acute findings [...] and return instructions documented in this encounter [facility] 04-11-2023 Hospital Discharg e instructions Patient Education [...] include: ?8 oz (237 mL) of milk, khlleqo-aceryizlkayn-jemss milk, and calcium-fortifiedfruit juice. Calcium-fortified means that [...] ?Spinach (cooked), rhubarb, beets, sweet potatoes, and Tunisian chard. ?Peanuts. ?Potato chips, st helenian fries, and baked potatoes with skin on. ?Nuts and nut products. ?Chocolate. If you regularly take a diuretic medicine, make sure to eat at least 1 or 2 servings of fruits or vegetables that are high in potassium each day. These include: ?Avocado. ?Banana. ?[place], prune, carrot, or tomato juice. ?Baked potato. [...] magnesium, fish oil, or vitamin B6. Take kbqk-fui-qxirymo and prescription medicines only as told by [...] Casseroles. Pizza. Lasagna. Frozen meals. Potato chips. Prydeinig fries. The items listed above may not [...] provider. Document Revised: 04/08/2022 Document Reviewed: 04/08/2022 [employer] Patient Education 2022 NEXAGE. Follow Up Care 08/19/2022 10:39:03 With:THOR BATISTA, Micki Cedeño, URL Address: [facility] [address] , [place] [address]- When:Within 1 Year(s) [facility] [place] 02-25-2022 Hospital Discharg e instructions [...] 07/28/2006 Document Revised: 04/16/2019 Document Reviewed: 06/27/2017 [employer] Patient Education 2020 NEXAGE. 02/25/2022 15:28:39 Kidney Stones, Cvtp-bt-Etac Kidney Stones Kidney stones are rock-like masses [...] Follow these instructions at home: Medicines Take uisb-enm-qnitszk and prescription medicines only as told by [...] 01/13/2009 Document Revised: 12/14/2019 Document Reviewed: 12/14/2019 [employer] Patient Education 2019 NEXAGE. Follow Up Care 11/21/2021 12:48:10 With:Micki ZENG MD, URL Address: [facility] [address], [place] [address]- [phone] When:Within 4 Month(s) Comments:4 mo fu with IVP [facility] 02-25-2022 Evaluation + Plan note Diagnostic Tests PendingPSA Total 02/25/22Creatinine 02/25/22 [facility] Evaluation + Plan note Future Appointments Appointment Date:04/16/2024 11:00:00 AM Scheduled Provider:Micki ZENG MD Location:[facility] Appointment Type:URO Office Visit [facility] Evaluation + Plan note Future Appointments Appointment Date:04/15/2025 11:00:00 AM Scheduled Provider:Micki ZENG MD Location:[facility] Appointment Type:URO Office Visit [facility] Evaluation note No assessment inform ation available [facility] Work Phone: Evaluation note Diagnosis Essential tremor- Primary Essential hypertension (CMS/HCC) Unspecified essential hypertension documented in this [facility] N[facility] No data available for this section [facility] progress note No data available for [...] Marielle Lerma MD Primary Care Provider Active 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 DATE CREATED AUTHOR AUTHOR'S ORGANIZ ATION 04/18/[address] [facility] FOR RECORDS PERTAINING TO PATIENTS WHO [...] BE BASED ON THE PRIMARY CLINICAL RECORDS. [facility]. provides no warranty or guarantee of the accuracy or completeness of information in this document.
== END 2024-08-03 08:35 | disposition home or self-care (01) ==
LOC: LAB 08:34
PROVIDERS: PCP Family Medicine; Visit Provider Family Medicine
DX: M70.50 Other bursitis of knee, unspecified knee (principal)
CPT/HCPCS: 87070; 87205

== ENCOUNTER 2024-11-22 17:19 | Outpatient (REF) | payer MEDICARE, OTHER, SELFPAY ==
--- OUTSIDE RECORDS SUMMARY | 2024-11-22 17:39 | XMS_ITS | CCD ---
Author Organization [facility]ini[facility] Care Team Providers Care Correspondence Transcriber Name Role Phone MD Marielle Lerma Primary Care Provider [phone] MD Micki Zeng Attending Provider Marielle Lerma Primary Care Physician THOR, DR SWEET Admitting Unavailable ZENG, DR SWEET Attending Unavailable HOY, DR PALOMARES Primary Care Unavailable THOR, DR SWEET Consulting Unavailable ZIEBDMITRIY, DR BEHZAD Cedeño Consulting Unavailable MAYCOY, DR [...] Unavailable ZIEBDMITRIY, DR BEHZAD Cedeño Consulting Unavailable MAYCOY, DR PALOMARES Admitting Unavailable HOY, DR PALOMARES Attending Unavailable HOY, DR PALOMARES Primary Care Unavailable HOY, DR PALOMARES Consulting Unavailable THOR, DR SWEET Admitting Unavailable THOR, DR SWEET Attending Unavailable HOY, DR PALOMARES Primary Care Unavailable THOR, DR SWEET Consulting Unavailable CAPEVILLE, DR RAFAEL Pizano Consulting Unavailable THOR, DR [...] Consulting Unavailable AHMED, CARLOS Consulting Unavailable LUE .NADEGE Consulting Unavailable NARDINBEHZAD Franklin Consulting Unavailable ASHLEY, DR PALOMARES Primary Care Unavailable ASHLEY, DR PALOMARES Consulting Unavailable NADERER, DR ERMA Garcia Admitting Unavailable NADERER, DR ERMA Garcia Attending Unavailable NADERER, DR ERMA Garcia Consulting Unavailable ANNITA, RUDDY Consulting Unavailable LUE ., NADEGE Tineo Consulting Unavailable MCCEUGENIO, BEHZAD Consulting Unavailable THOR, DR SWEET Admitting Unavailable THOR, DR SWEET Attending Unavailable ASHLEY, DR PALOMARES Primary Care Unavailable THOR, DR SWEET Consulting Unavailable ASHLEY, DR PALOMARES Primary Care Unavailable RUDDY ARIZA Admitting Unavailable RUDDY ARIZA Attending Unavailable RUDDY ARIZA Consulting Unavailable ACACIA CAST Consulting Unavailable RTACEY WILLETT Attending Unavailable Micki ZENG Attending Unavailable Micki ZENG Attending Unavailable Marielle Lerma MD Primary Care Provider [phone] Marielle Lerma Attending Unavailable Marielle Lerma Admitting Unavailable Allergies Allergy Classification Reported Allergen(s) Allergy Type Date of Onset Reaction(s) Facility (1 source) No Known Medication Allergies; Translations: [No Known Medication Allergies] Propensity to adverse reactions (disorder) [facility] Repository Medications Current Medications Medication Drug [...] / HYDROcodone bitartrate 10 mg oral tablet (9 sources) Opioid Agonist Start: 12-29-2023 take 1 tablet by mouth in the morning HYDROcodone-acetami nophen (Hanna) 10-325 MG tablet Take 1 tablet by mouth in the morning and 1 tablet before bedtime. 12/29/2023 Active Start: 05-29-2021 take 1 tablet by isa th once daily acetaminophen-hydrocodone 325 mg-5 mg or al tablet 1 tab(s), Oral, Daily pain, Refill(s) 0 Start Date: 05/29/21 Status: Ordered Start: 09-07-2019 End: 10-12-2019 take 1 tablet by mouth every four to six hours Hydrocodone-Acetaminophen (Hanna) 5-325 mg tablet Active 1 TAB PO EVERY 4-6 HOURS 40 7 September 28, 2019 1:45pm allopurinol 300 mg oral tablet (7 sources) Xanthine Oxidase Inhibitor Start: 11-27-2023 take 1 tablet by mouth once daily allopurinol (Zyloprim) 300 MG tablet Take 300 mg by mouth Daily 11/27/2023 Active Start: 03-10-2023 take 1 tablet by isa th once daily allopurinol 300 mg Tab 300 mg = 1 tab(s), Oral, Daily, # 90 tab(s), Refills(s) 3, Pharmacy: [facility]/pharmacy #[id number], 180, cm, 08/19/22 9:50:00 EST, Height/Length Dosing, 136.2, kg, 08/19/22 9:50:00 EST, Weight Dosing Start Date: 03/10/23 Status: Ordered Start: 02-25-2022 allopurinol 30 0 mg Tab 150 mg = 0.5 tab(s), Oral, Daily, # 30 tab(s), Refills(s) 11, Pharmacy: [facility] #[id number], 180, cm, 02/25/22 14:22:00 EDT, Height/Length Dosing, 135, kg, 02/25/22 14:22:00 EDT, Weight Dosing Start Date: 02/25/22 Status: Ordered aspirin 81 mg chewable tablet (4 sources) Platelet Aggregation Inhibitor, Nonsteroidal Anti-inflammatory Drug Start: 04-16-2024 aspirin 81 mg Callie w Tab 162 mg = 2 tab(s), Chewed, BID Start Date: 04/16/24 Status: Ordered Start: 02-10-2019 take 2 tablets by [facility] once daily aspirin 81 mg oral tablet 162 mg = 2 tab(s), Oral, Daily, Refills(s) 0 Start Date: 02/10/19 Status: Ordered Start: 01-02-2018 take 1 tablet by [facility] twice daily Aspirin (Aspir-81) 81 mg Tablet,Delayed Release (Dr/Ec) Active 1 TAB PO Twice daily January 02, 2018 9:35am clindamycin 0.01 mg/mg topical gel (1 source) Lincosamide Antibacterial Start: 05-25-2021 Clindagel 1% topical gel 1 keke, Topical, BID, Refill(s) 0 Start Date: 05/25/21 Status: Ordered cloNIDine hydrochloride 0.1 mg oral tablet (7 sources) Central alpha-2 Adrenergic Agonist Start: 04-23-2021 take 1 mg by mouth twice daily cloNIDine 0.1 mg tab mg tab(s), Oral, BID, Refills(s) 0 Start Date: 04/23/21 Status: Ordered colchicine 0.6 mg oral tablet (7 sources) Start: 05-25-2021 take 1 tablet by mouth twice daily colchicine 0.6 mg Tab 0.6 mg = 1 tab(s), Oral, BID, Refills(s) 0 Start Date: 05/25/21 Status: Ordered take 1 capsule by mo [facility] twice daily as needed Colchicine 0.6 MG capsule Take 0.6 mg by mouth 2 (two) times a day as needed Active fluticasone propionate 0.05 mg/actuat metered dose nasal spray (3 sources) Corticosteroid take 2 spray(s) nasal route in the morning fluticasone (Flonase) 50 MCG/ACT nasal spray Administer 2 sprays into each nostril in the morning and 2 sprays before bedtime. Shake gently. Before first use, prime pump. After use, clean tip and replace cap.. Active hydroCHLOROthiazide 12.5 mg oral capsule (7 sources) Thiazide Diuretic Start : 09-08 take 1 capsule by mouth once daily hydroCHLOROthiazide (Microzide) 12.5 MG capsule Take 12.5 mg by mouth Daily 01/17/2024 Active Start: 08-19-2022 take 1 capsule by mo [facility] once daily hydrochlorothiazide 12.5 mg Cap 12.5 mg = 1 cap(s), Oral, Daily, # 90 cap(s), Refills(s) 3, [id number] 180, cm, 08/19/22 9:50:00 EST, Height/Length Dosing, 136.2, kg, 08/19/22 9:50:00 EST, Weight Dosing Start Date: 08/19/22 Status: Ordered Start: 02-25-2022 take 1 capsule by [facility] once daily hydrochlorothiazide 12.5 mg Cap 12.5 mg = 1 cap(s), Oral, Daily, # 30 cap(s), Refills(s) 6, Pharmacy: [facility] #[id number], 180, cm, 02/25/22 14:22:00 EDT, Height/Length Dosing, 135, kg, 02/25/22 14:22:00 EDT, Weight Dosing Start Date: 02/25/22 Status: Ordered hyoscyamine sulfate 0.125 mg oral tablet (1 source) Start: 11-12-2021 hyoscyamine 0. 125 mg oral Tab Refills(s) 0 Start Date: 11/12/21 Status: Ordered lisinopril 40 mg oral tablet (8 sources) Angiotensin Converting Enzyme Inhibitor Start: 01-02-2018 [...] Status: Ordered meloxicam 15 mg oral tablet (8 sources) Nonsteroidal Anti-inflammatory Drug Start: 04-16-2024 take [...] 2018 9:35am montelukast 10 mg oral tablet (4 sources) Leukotriene Receptor Antagonist Start: 04-16-2024 take 1 mg by mouth once daily in the evening montelukast 10 mg Tab mg tab(s), Oral, qPM Start Date: 04/16/24 Status: Ordered Hyftgwsf-Ump-Kd-Lyc open-Lutein (Centrum Silver) 0.4-300-250 mg-mcg-mcg Tablet (1 source) Start: 09-02-2019 take 1 tablet by mouth once daily Vwlfclck-Fgg-Er-Ly copen-Lutein (Centrum Silver) 0.4-300-250 mg-mcg-mcg Tablet Active [...] tab(s), Oral, BID, 60 tab(s), Refill(s) 11, [facility]/pharmacy #[id number], 180, cm, 04/11/23 11:56:00 EDT, Height/Length Dosing, 127, kg, 04/11/23 11:56:00 EDT, Weight Dosing Start Date: 04/11/23 Status: Ordered pravastatin sodium 20 mg oral tablet (5 sources) HMG-CoA Reductase Inhibitor Start: 01-02-2018 take 20 mg by mouth once daily at bedtime Pravastatin Active 20 MG PO Daily at bedtime January 02, 2018 9:35am primidone 50 mg oral tablet (13 sources) Anti-epileptic Agent Start: 11-09-2024 take 1 tablet by mouth in the morning primidone (Mysoline) 50 MG tablet Indications: Essential tremor Take 1 tablet (50 mg) by mouth in the morning and 1 tablet (50 mg) before bedtime. 180 tablet 11/09/2024 Active Start: 09-06-2023 End: 11-09-2024 take 1 tablet by mouth twice daily primidone (Mysoline) 50 MG tablet Indications: Essential tremor TAKE 1 TABLET BY MOUTH TWICE A DAY FOR 30 DAYS 180 tablet 2 02/17/2024 11/09/2024 Discontinued Start: 09-02-2019 take 12.5 mg by mout h once daily at bedtime Primidone Active 12.5 MG PO Daily at bedtime September 02, 2019 12:44pm Start: 02-10-2019 primidone 50 m g Tab 25 mg = 0.5 tab(s), Once a day (at bedtime), Refills(s) 0 Start Date: 02/10/19 Status: Ordered simvastatin 20 mg oral tablet (6 sources) HMG-CoA Reductase Inhibitor Start: 05-29-2021 take [...] BID, # 90 tab(s), Refills(s) 3, Pharmacy: [facility]/pharmacy #[id number], 180, cm, 08/19/22 9:50:00 EST, Height/Length Dosing, 136.2, kg, 08/19/22 9:50:00 EST, Weight Dosing Start Date: 08/19/22 Status: Ordered solifenacin succinate 10 mg oral tablet (6 sources) Cholinergic Muscarinic Antagonist Start: 04-08-2022 End: 12-23-2024 take 1 tablet by mouth once daily solifenacin (VESIcare) 10 MG tablet Take 10 mg by mouth Daily 11/19/2023 Active Start: 02-25-2022 take 1 tablet by isa once daily Vesicare 10 mg Tab 10 mg = 1 tab(s), Oral, Daily, # 30 tab(s), Refills(s) 11, Pharmacy: [facility]/pharmacy #[id number], 180, cm, 02/25/22 14:22:00 EDT, Height/Length Dosing, 135, kg, 02/25/22 14:22:00 EDT, Weight Dosing Start Date: 02/25/22 Status: Ordered tadalafil 20 mg oral tablet (4 sources) Phosphodiesterase 5 Inhibitor Start: 10-23-2021 take 1 tablet by mouth once daily Cialis 20 mg Tab 20 mg = 1 tab(s), Oral, Daily, # 30 tab(s), Refills(s) 6, Pharmacy: [facility]/pharmacy #[id number], 180, cm, 10/22/21 14:56:00 EDT, Height/Length Dosing, 135, kg, 10/22/21 14:56:00 EDT, Weight Dosing Start Date: 10/23/21 Status: Ordered Start: 01-02-2018 take 1 tablet by isa once daily Tadalafil (Cialis) 10 mg Tablet Active 10 MG PO Daily January 02, 2018 9:35am tamsulosin hydrochloride 0.4 mg oral capsule (9 sources) alpha-Adrenergic Reilly Start: 01-27-2024 take 1 capsule by mouth every twenty-four hours in the morning tamsulosin (Flomax) 0.4 MG 24 hr capsule Take 0.4 mg by mouth in the morning and 0.4 mg before bedtime. 01/27/2024 Active Start: 10-28-2023 take 1 capsule by mo [facility] twice daily tamsulosin 0.4 mg Cap 0.4 mg = 1 cap(s), Oral, BID, # 180 cap(s), Refills(s) 3, Pharmacy: [facility]/pharmacy #[id number], 180, cm, 04/11/23 11:56:00 EDT, Height/Length Dosing, 127, kg, 04/11/23 11:56:00 EDT, Weight Dosing Start Date: 10/28/23 Status: Ordered Start: 04-11-2023 take 1 capsule by [facility] once daily tamsulosin 0.4 mg Cap 0.4 mg = 1 cap(s), Oral, Daily, # 90 cap(s), Refills(s) 3, Pharmacy: [facility]/pharmacy #[id number], 180, cm, 04/11/23 11:56:00 EDT, Height/Length [...] Coronary atherosclerosis; Translations: [Atherosclerotic heart disease of kenaitze coronary artery without angina pectoris] Onset: 11-05-2021 05-25-2021 Chronic Diabetes mellitus without complication (1 source) Type 2 diabetes mellitus without complications; Translations: [TYPE 2 DM WITHOUT COMPLICATIONS] Onset: 05-17-2022 Chronic Diabetes mellitus without complication (1 source) Other abnormal glucose; Translations: [OTHER ABNORMAL GLUCOSE] Onset: 05-17-2022 Episodic Disorders of lipid metabolism (6 sources) Pure hypercholesterolemia , unspecified; Translations: [Hyperlipidemia, unspecified] Onset: 05-17-2022 03-28-2024 Chronic Esophageal disorders (1 source) Gastro-esophageal reflux disease without esophagitis; Translations: [GERD WITHOUT ESOPHAGITIS] Onset: 08-01-2022 Chronic Essential hypertension (10 sources) Hypertensive disorder; Translations: [Essential (primary) hypertension] [...] Onset: 08-01-2022 Chronic Other 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) custodial (current) use of aspirin; Translations: [MEDICAL IMAGING DIRECTOR CURRENT USE OF ASPIRIN] Onset: 08-01-2022 Episodic Other 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) Other terminologist (current) 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; Translations: [OTH LONGTERM CURRENT DRUG THERAPY] Onset: 08-01-2022 Episodic Other connective tissue disease (1 source) Presence of right artificial knee joint; Translations: [PRESENCE RT ARTIFICIAL KNEE JOINT] Onset: 11-12-2021 Chronic Other gastrointestinal disorders (3 sources) Occult blood in stools 02-10-2019 Episodic Other hereditary and degenerative nervous system conditions (10 sources) Essential tremor; Translations: [Essential tremor] Onset: [...] Onset: 02-18-2022 Episodic Other 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) custodial (current) use of anticoagulants; Translations: [LONGTERM CURRNT USE ANTICOAGULANTS] Onset: 11-05-2021 Episodic Other [...] Test Name Value Interpretation Reference Range Facility Aerobic Cultureon 08-03-2024 Aerobic Culture Result Tab Codes Heavy Normal Respiratory Kimberlee 2 Days Gram Stain Result 4+ Gram Positive Cocci 1+ Yeast Like Elements 1+ Gram Negative Bacilli 1+ Gram Positive Bacilli 1+ White Blood Cells 2+ Epithelial Cells PERFORMED BY: [place] [address] PATHOLOGIST TOY ASSEMBLER ANGELES VILLEGAS M.D. Normal [facility] Comment on above: Performed By: #### G S, AERC #### [facility] [address] [place] [address] Gram Stainon 08-03-2024 Microscopic observation Gram stain Nom (Unsp spec) Gram Stain Result 4+ Gram Positive Cocci 1+ Yeast Like Elements 1+ Gram Negative Bacilli 1+ Gram Positive Bacilli 1+ White Blood Cells 2+ Epithelial Cells PERFORMED BY: [place] [address] PATHOLOGIST TOY ASSEMBLER ANGELES VILLEGAS M.D. Normal [facility] Comment on above: Performed By: #### G S, AERC #### [facility] [id number] [facility] Ambulatory Visit Summaryon 0 04-16-2024 Ambulatory Visit [...] Friday 11:00 AM EDT With: THOR BATISTA, Micki Cedeño [facility] [address] [place] [address]- You Need to Schedule the Following Appointments Follow Up with THOR BATISTA, AMRIK Khanna When: Comments: 1 yr w/ ISIDRO Where: [facility] [address], [place] [phone] Medications What How Much When Instructions Unchanged [...] of urination (more content not included)... Normal [facility] Ambulatory Visit Summary Ambulatory Visit Summary RIZWAN APARICIO :1950 Visit Date:04/16/2024 Ambulatory Visit Instructions Your Diagnosis BPH with urinary obstruction Kidney stone Nocturia Impotence Tests Performed US Renal -- Results Pending -- XR Abdomen 1 View -- Results Pending -- Please visit your patient portal for your results or contact your primary care physician. Your Care Team Attending Physician - THOR BATISTA, Micki Cedeño Primary Care Physician - Marielle Lerma [...] AMRIK Khanna When: Comments: 1 yr w/ KUErmias Where: [facility] [address], [place] [address]- [phone] Medications What How Much When Instructions Unchanged [...] your c (more content not included)... Normal [facility] Urology Office/Clinic Noteon 04-16-2024 Urology Office/Clinic [...] on 02/18/22. Stone analysis - 70% CaOx [place], 30% uric acid. LUIS 04/01/23 - cortical [...] [facility] [address], [place] [id number] [phone] Additional Instructions: 1 yr w/ KUB Patient Education Kidney Stones, [id number] I, Brenda Lopez, personally scribed for Dr. Zeng on 04/16/2024 12:27:55. . Documentation recorded by the scribeBrenda, accurately [...] data Proced (more content not included)... Normal [facility] Comment on above: Result Comment: Elec tronically Signed By: Micki ZENG MD\.br\Date and Time Signed: 04/16/24 12:29 EDT\.br\Electronically Co-Signed By: Brenda Lopez\.br\Date and Time Co-Signed: 04/16/24 12:28 EDT CBC AUTO DIFFon 07-27-2022 BASO # 0.1 103/ul Normal 0.0-0.[address] [facility] Comment on above: Performed By: #### U DINA, LIPID, TSH, BNP, CMP, T7 #### [facility] [address] [place] [address] Dr. Suzie Brooks Basophils/100 WBC (Bld) 0.5 % Normal 0.2-2.0 [facility] Comment on above: Performed By: #### U DINA, LIPID, TSH, BNP, CMP, T7 #### [facility] [address] [place] [address] Dr. Suzie Brooks EO # 0.4 103/ul Normal 0.0-0.7 [facility] Comment on above: Performed By: #### U DINA, LIPID, TSH, BNP, CMP, T7 #### [facility] [address] [place] [address] Dr. Suzie Brooks Eosinophils/100 WBC (Bld) 3.3 % Normal 0.9-7.0 [facility] Comment on above: Performed By: #### U DINA, LIPID, TSH, BNP, CMP, T7 #### [facility] [address] [place] [address] Dr. Suzie Brooks Erythrocyte distribution width (RBC) [Ratio] 14.6 % Normal 11.0-15.0 [facility] Comment on above: Performed By: #### U DINA, LIPID, TSH, BNP, CMP, T7 #### [facility] [address] [place] [address] Dr. Suzie Brooks Hematocrit (Bld) [Volume fraction] 42.0 % Normal 42.0-54.0 [facility] Comment on above: Performed By: #### U DINA, LIPID, TSH, BNP, CMP, T7 #### [facility] [address] [place] [address] Dr. Suzie Brooks Hemoglobin (Bld) [Mass/Vol] 14.1 g/dL Normal 14.0-18.0 [facility] Comment on above: Performed By: #### U DINA, LIPID, TSH, BNP, CMP, T7 #### [facility] [address] [place] [address] Dr. Suzie Brooks IG # 0.03 10e3/ul Normal 0.00-0.[address] [facility] Comment on above: Performed By: #### U DINA, LIPID, TSH, BNP, CMP, T7 #### [facility] [address] [place] [address] Dr. Suzie Brooks IG % 0.3 % Normal 0.0-0.5 [facility] Comment on above: Performed By: #### U DINA, LIPID, TSH, BNP, CMP, T7 #### [facility] [address] [place] [address] Dr. Suzie Brooks LYMPH # 3.1 103/ul Normal 1.2-3.8 [facility] Comment on above: Performed By: #### U DINA, LIPID, TSH, BNP, CMP, T7 #### [facility] [address] [place] [address] Dr. Suzie Brooks Lymphocytes/100 WBC (Bld) 28.2 % Normal 20.5-60.[address] [facility] Comment on above: Performed By: #### U DINA, LIPID, TSH, BNP, CMP, T7 #### [facility] [address] [place] [address] Dr. Suize Brooks MANUAL DIFF REQ NO Normal [facility] Comment on above: Performed By: #### U DINA, LIPID, TSH, BNP, CMP, T7 #### [facility] [address] [place] [address] Dr. Suzie Brooks MCH (RBC) [Entitic mass] 28.5 pg Normal 25.9-34.0 [facility] Comment on above: Performed By: #### U DINA, LIPID, TSH, BNP, CMP, T7 #### [facility] [address] [place] [address] Dr. Suzie Brooks MCHC (RBC) [Mass/Vol] 33.6 g/dL Normal 29.9-35.2 [facility] Comment on above: Performed By: #### U DINA, LIPID, TSH, BNP, CMP, T7 #### [facility] [address] [place] [address] Dr. Suzie Brooks MCV (RBC) [Entitic vol] 85.0 fL Normal 80.0-94.0 [facility] Comment on above: Performed By: #### U DINA, LIPID, TSH, BNP, CMP, T7 #### [facility] [address] [place] [address] Dr. Suzie Brooks MONO # 0.8 103/ul Normal 0.3-0.8 [facility] Comment on above: Performed By: #### U DINA, LIPID, TSH, BNP, CMP, T7 #### [facility] [address] [place] [address] Dr. Suzie Brooks Monocytes/100 WBC (Bld) 7.2 % Normal 1.7-12.0 [facility] Comment on above: Performed By: #### U DINA, LIPID, TSH, BNP, CMP, T7 #### [facility] [address] [place] [address] Dr. Suzie Brooks NEUT # 6.7 103/ul Critically high 1.4-6.5 [facility] Comment on above: Performed By: #### U DINA, LIPID, TSH, BNP, CMP, T7 #### [facility] [address] [place] [address] Dr. Suzie Brooks Neutrophils/100 WBC (Bld) 60.5 % Normal 43.0-75.0 [facility] Comment on above: Performed By: #### U DINA, LIPID, TSH, BNP, CMP, T7 #### [facility] [address] [place] [address] Dr. Suzie Brooks Platelet mean volume (Bld) [Entitic vol] 9.6 fL Normal 9.5-13.5 [facility] Comment on above: Performed By: #### U DINA, LIPID, TSH, BNP, CMP, T7 #### [facility] [address] [place] [address] Dr. Suzie Brooks PLT 266 103/ul Normal 150-450 [facility] Comment on above: Performed By: #### U DINA, LIPID, TSH, BNP, CMP, T7 #### [facility] [address] [place] [address] Dr. Suzie Brooks RBC 4.94 106/ul Normal 4.70-6.10 [facility] Comment on above: Performed By: #### U DINA, LIPID, TSH, BNP, CMP, T7 #### [facility] [address] [place] [address] Dr. Suzie Brooks WBC 11.1 103/ul Critically high 4.0-11.0 [facility] Comment on above: Performed By: #### U DINA, LIPID, TSH, BNP, CMP, T7 #### [facility] [address] [place] [address] Dr. Suzie Brooks PROF 14(COMP METB)on 022 Albumin [Mass/Vol] 3.2 g/dL Critically low 3.4-5.0 e [facility] Comment on above: Performed By: #### C VDTBH #### [facility] [address] [place] [address] Dr. Suzie Brooks Albumin/Globulin [Mass ratio] 0.9 {ratio} Normal [facility] Comment on above: Performed By: #### C VDTBH #### [facility] [address] [place] [address] Dr. Suzie Brooks ALP [Catalytic activity/Vol] 60 U/L Normal 46-[address] [facility] Comment on above: Performed By: #### C VDTBH #### [facility] [address] [place] [address] Dr. Suzie Brooks ALT [Catalytic activity/Vol] 27 U/L Normal 16-63 [facility] Comment on above: Performed By: #### C VDTBH #### [facility] [address] [place] [address] Dr. Suzie Brooks Anion gap [Moles/Vol] 10.4 mmol/L Normal [facility] Comment on above: Performed By: #### C VDTBH #### [facility] [address] [place] [address] Dr. Suzie Brooks AST [Catalytic activity/Vol] 23 U/L Normal 15-[address] [facility] Comment on above: Performed By: #### C VDTBH #### [facility] [address] [address] [address] Suzie Brooks Bilirubin [Mass/Vol] 0.4 mg/dL Normal 0.2-1.[address] [facility] Comment on above: Performed By: #### C VDTBH #### [facility] [address] [place] [address] Dr. Suzie Brooks Calcium [Mass/Vol] 8.4 mg/dL Critically low 8.5-10.1 [facility] Comment on above: Performed By: #### C VDTBH #### [facility] [address] [address] [address] Suzie Brooks Chloride [Moles/Vol] 104 mmol/L Normal 98-[address] [facility] Comment on above: Performed By: #### C VDTBH #### [facility] [address] [place] [address] Dr. Suzie Brooks CO2 [Moles/Vol] 26.1 mmol/L Normal 21.0-32.0 [facility] Comment on above: Performed By: #### C VDTBH #### [facility] [address] [place] [address] Dr. Suzie Brooks Creatinine [Mass/Vol] 0.90 mg/dL Normal 0.70-1.[address] [facility] Comment on above: Performed By: #### C VDTBH #### [facility] [address] [place] [address] Dr. Suzie Brooks EGFR-AF [place] >60 Normal >=60 [facility] Comment on above: Performed By: #### C VDTBH #### [facility] [address] [place] [address] Dr. Suzie Brooks EGFR-NON AF MOSOTHO >60 Normal >=[address] [facility] Comment on above: Performed By: #### C VDTBH #### [facility] [address] [place] [address] Dr. Suzie Brooks Globulin (S) [Mass/Vol] 3.4 g/dL Normal [facility] Comment on above: Performed By: #### C VDTBH #### [facility] [address] [address] [address] Suzie Brooks Glucose [Mass/Vol] 111 mg/dL Critically high 74-106 [facility] Comment on above: Performed By: #### C VDTBH #### [facility] [address] [address] [address] Suzie Brooks Potassium [Moles/Vol] 3.5 mmol/L Normal 3.5-5.[address] [facility] Comment on above: Performed By: #### C VDTBH #### [facility] [address] [place] [address] Dr. Suzie Brooks Protein [Mass/Vol] 6.6 g/dL Normal 6.4-8.2 [facility] Comment on above: Performed By: #### C VDTBH #### [facility] [address] [place] [address] Dr. Suzie Brooks Sodium [Moles/Vol] 137 mmol/L Normal 136-145 [facility] Comment on above: Performed By: #### C VDTBH #### [facility] [address] [place] [address] Dr. Suzie Brooks Urea nitrogen [Mass/Vol] 13.0 mg/dL Normal 7.0-18.[address] [facility] Comment on above: Performed By: #### C VDTBH #### [facility] [address] [place] [address] Dr. Suzie Brooks Urea nitrogen/Creatinine [Mass ratio] 14.4 mg/mg Normal [facility] Comment on above: Performed By: #### C VDTBH #### [facility] [address] [place] [address] Dr. Suzie Brooks BNPon 07-26-2022 Natriuretic peptide B (Bld) [Mass/Vol] 118.0 pg/mL Normal <=900.[address] [facility] Comment on above: Performed By: #### U DINA, LIPID, TSH, BNP, CMP, T7 #### [facility] [address] [place] [address] Dr. Suzie Brooks CARDIAC MJ 3-6on 2 CK [Catalytic activity/Vol] 240 U/L Normal 39-308 [facility] Comment on above: Performed By: #### U DINA, LIPID, TSH, BNP, CMP, T7 #### [facility] [address] [place] [address] Dr. Suzie Brooks CK.MB [Mass/Vol] 3.43 ng/mL Normal <=3.60 [facility] Comment on above: Performed By: #### U DINA, LIPID, TSH, BNP, CMP, T7 #### [facility] [address] [address] [address] Suzie Brooks HSTROP 8.6 pg/mL Normal 4.0-76.[address] [facility] Comment on above: Result Comment: CUT- OFF POINTS HAVE BEEN ESTABLISHED BASED ON THE FOURTH UNIVERSAL DEFINITIONS OF MYOCARDIAL INFARCTION. THE UPPER REFERENCE LIMIT (URL) OF TROPONIN, DEFINED THE 99TH PERCENTILE OF cTnI DISTRIBUTION IN A REFERENCE POPULATION, HAS BEEN CONFIRMED THE DECISION THRESHOLD FOR [place] DIAGNOSIS. Performed By: #### U DINA, LIPID, TSH, BNP, CMP, T7 #### [facility] [address] [place] [address] Dr. Suzie Brooks CK [Catalytic activity/Vol] 239 U/L Normal 39-[address] [facility] Comment on above: Performed By: #### M AG24 #### [facility] [address] [place] [address] Dr. Suzie Brooks CK.MB [Mass/Vol] 2.93 ng/mL Normal <=3.60 [facility] Comment on above: Performed By: #### M AG24 #### [facility] [address] [place] [address] Dr. Suzie Brooks HSTROP 10.4 pg/mL Normal 4.0-76.1 [facility] Comment on above: Result Comment: CUT- OFF POINTS HAVE BEEN ESTABLISHED BASED ON THE FOURTH UNIVERSAL DEFINITIONS OF MYOCARDIAL INFARCTION. THE UPPER REFERENCE LIMIT (URL) OF TROPONIN, DEFINED THE 99TH PERCENTILE OF cTnI DISTRIBUTION IN A REFERENCE POPULATION, HAS BEEN CONFIRMED THE DECISION THRESHOLD FOR [place] DIAGNOSIS. Performed By: #### M AG24 #### [facility] [address] [place] [address] Dr. Suzie Brooks CARDIAC MJ ADMITon 022 CK [Catalytic activity/Vol] 234 U/L Normal 39-[address] [facility] Comment on above: Performed By: #### O X24HR #### [facility] [address] [place] [address] Dr. Suzie Brooks CK.MB [Mass/Vol] 3.37 ng/mL Normal <=3.60 [facility] Comment on above: Performed By: #### O X24HR #### [facility] [address] [place] [address] Dr. Suzie Brooks HSTROP 9.0 pg/mL Normal 4.0-76.1 [facility] Comment on above: Result Comment: CUT- OFF POINTS HAVE BEEN ESTABLISHED BASED ON THE FOURTH UNIVERSAL DEFINITIONS OF MYOCARDIAL INFARCTION. THE UPPER REFERENCE LIMIT (URL) OF TROPONIN, DEFINED THE 99TH PERCENTILE OF cTnI DISTRIBUTION IN A REFERENCE POPULATION, HAS BEEN CONFIRMED THE DECISION THRESHOLD FOR [place] DIAGNOSIS. Performed By: #### O [id number] #### [facility] [address] [place] [address] Dr. Suzie Brooks EDIE 85 ng/mL Normal 16-96 [facility] Comment on above: Performed By: #### O X24HR #### [facility] [address] [place] [address] Dr. Suzie Brooks CBC AUTO DIFFon 07-26-2022 BASO # 0.1 103/ul Normal 0.0-0.1 [facility] Comment on above: Performed By: #### U DINA, LIPID, TSH, BNP, CMP, T7 #### [facility] [address] [place] [address] Dr. Suzie Brooks Basophils/100 WBC (Bld) 0.4 % Normal 0.2-2.0 [facility] Comment on above: Performed By: #### U DINA, LIPID, TSH, BNP, CMP, T7 #### [facility] [address] [place] [address] Dr. Suzie Brooks EO # 0.3 103/ul Normal 0.0-0.[address] [facility] Comment on above: Performed By: #### U DINA, LIPID, TSH, BNP, CMP, T7 #### [facility] [address] [address] [address] Suzie Brooks Eosinophils/100 WBC (Bld) 2.5 % Normal 0.9-7.[address] [facility] Comment on above: Performed By: #### U DINA, LIPID, TSH, BNP, CMP, T7 #### [facility] [address] [address] [address] Suzie Brooks Erythrocyte distribution width (RBC) [Ratio] 14.4 % Normal 11.0-15.[address] [facility] Comment on above: Performed By: #### U DINA, LIPID, TSH, BNP, CMP, T7 #### [facility] [address] [address] [address] Suzie Brooks Hematocrit (Bld) [Volume fraction] 46.0 % Normal 42.0-54.[address] [facility] Comment on above: Performed By: #### U DINA, LIPID, TSH, BNP, CMP, T7 #### [facility] [address] [place] [address] Dr. Suzie Brooks Hemoglobin (Bld) [Mass/Vol] 15.6 g/dL Normal 14.0-18.0 [facility] Comment on above: Performed By: #### U DINA, LIPID, TSH, BNP, CMP, T7 #### [facility] [address] [place] [address] Dr. Suzie Brooks IG # 0.07 10e3/ul Critically high 0.00-0.03 [facility] Comment on above: Performed By: #### U DINA, LIPID, TSH, BNP, CMP, T7 #### [facility] [address] [address] [address] Suzie Brooks IG % 0.6 % Critically high 0.0-0.5 [facility] Comment on above: Performed By: #### U DINA, LIPID, TSH, BNP, CMP, T7 #### [facility] [address] [place] [address] Dr. Suzie Brooks LYMPH # 2.9 103/ul Normal 1.2-3.8 [facility] Comment on above: Performed By: #### U DINA, LIPID, TSH, BNP, CMP, T7 #### [facility] [address] [place] [address] Dr. Suzie Brooks Lymphocytes/100 WBC (Bld) 24.2 % Normal 20.5-60.0 [facility] Comment on above: Performed By: #### U DINA, LIPID, TSH, BNP, CMP, T7 #### [facility] [address] [place] [address] Dr. Suzie Brooks MANUAL DIFF REQ NO Normal [facility] Comment on above: Performed By: #### U DINA, LIPID, TSH, BNP, CMP, T7 #### [facility] [address] [place] [address] Dr. Suzie Brooks MCH (RBC) [Entitic mass] 28.6 pg Normal 25.9-34.0 [facility] Comment on above: Performed By: #### U DINA, LIPID, TSH, BNP, CMP, T7 #### [facility] [address] [place] [address] Dr. Suzie Brooks MCHC (RBC) [Mass/Vol] 33.9 g/dL Normal 29.9-35.2 [facility] Comment on above: Performed By: #### U DINA, LIPID, TSH, BNP, CMP, T7 #### [facility] [address] [place] [address] Dr. Suzie Brooks MCV (RBC) [Entitic vol] 84.4 fL Normal 80.0-94.0 [facility] Comment on above: Performed By: #### U DINA, LIPID, TSH, BNP, CMP, T7 #### [facility] [address] [place] [address] Dr. Suzie Brooks MONO # 0.8 103/ul Normal 0.3-0.8 [facility] Comment on above: Performed By: #### U DINA, LIPID, TSH, BNP, CMP, T7 #### [facility] [address] [place] [address] Dr. Suzie Brooks Monocytes/100 WBC (Bld) 6.7 % Normal 1.7-12.0 [facility] Comment on above: Performed By: #### U DINA, LIPID, TSH, BNP, CMP, T7 #### [facility] [address] [address] [address] Suzie Brooks NEUT # 7.8 103/ul Critically high 1.4-6.5 [facility] Comment on above: Performed By: #### U DINA, LIPID, TSH, BNP, CMP, T7 #### [facility] [address] [address] [address] Suzie Brooks Neutrophils/100 WBC (Bld) 65.6 % Normal 43.0-75.0 [facility] Comment on above: Performed By: #### U DINA, LIPID, TSH, BNP, CMP, T7 #### [facility] [address] [address] [address] Suzie Brooks Platelet mean volume (Bld) [Entitic vol] 9.7 fL Normal 9.5-13.5 [facility] Comment on above: Performed By: #### U DINA, LIPID, TSH, BNP, CMP, T7 #### [facility] [address] [address] [address] Suzie Brooks PLT 289 103/ul Normal 150-450 [facility] Comment on above: Performed By: #### U DINA, LIPID, TSH, BNP, CMP, T7 #### [facility] [address] [address] [address] Suzie Brooks RBC 5.45 106/ul Normal 4.70-6.10 [facility] Comment on above: Performed By: #### U DINA, LIPID, TSH, BNP, CMP, T7 #### [facility] [address] [address] [address] Suzie Brooks WBC 11.9 103/ul Critically high 4.0-11.0 [facility] Comment on above: Performed By: #### U DINA, LIPID, TSH, BNP, CMP, T7 #### [facility] [address] [address] [address] Suzie Brooks CTA CHEST WO W [...] BEHZAD CARRASQUILLO Date: 2022-07-26 11:59 Normal [facility] Covid-19 PCR (CVDTB)on 07-11 SARS-CoV-2 (COVID-19) RNA SUKHJINDER+probe Ql (Unsp spec) Not detected Normal NOT DETECTED [facility] Comment on above: Result Comment: When [...] for this test is supported by the Field Director of Health and Human Service's declaration [...] DINA, LIPID, TSH, BNP, CMP, T7 #### [facility] [address] [place], [place] [address] Dr. Suzie Brooks D-DIMERon 07-26-2022 D-DIMER 0.88 mg/L FEU Critically high <=0.59 [facility] Comment on above: Performed By: #### C VDTBH #### [facility] [address] [place], [place] [address] Dr. Suzie Brooks D-DIMER COMMENTS SEE BELOW [...] hospitalization. Performed By: #### C VDTB #### [facility] [address] [place] [address] [id number] [address] Suzie Brooks ECHOCARDIO M/2D COMPLETEon 1 09-26-2021 ECHOCARDIO M/2D COMPLETE Patient: RIZWAN APARICIO Exam Date: 07/26/2022 : 1950 Gender:M Ordering : DR MARIELLE LERMA . Admission #: [id number] Family : Order #: [id number] CLICK HERE TO VIEW EXAM ECHOCARDIOGRAM REPORT [...] on 07/26/2022 at 16:[address] [facility] PROF 14(COMP METB)on 07-26- 022 Albumin [Mass/Vol] 3.6 g/dL Normal 3.4-5.0 [facility] Comment on above: Performed By: #### U DINA, LIPID, TSH, BNP, CMP, T7 #### [facility] [address] [place] [address] Dr. Suzie Brooks Albumin/Globulin [Mass ratio] 0.9 {ratio} Normal [facility] Comment on above: Performed By: #### U DINA, LIPID, TSH, BNP, CMP, T7 #### [facility] [address] [place] [address] Dr. Suzie Brooks ALP [Catalytic activity/Vol] 70 U/L Normal 46-[address] [facility] Comment on above: Performed By: #### U DINA, LIPID, TSH, BNP, CMP, T7 #### [facility] [address] [place] [address] Dr. Suzie Brooks ALT [Catalytic activity/Vol] 30 U/L Normal 16-[address] [facility] Comment on above: Performed By: #### U DINA, LIPID, TSH, BNP, CMP, T7 #### [facility] [address] [place] [address] Dr. Suzie Brooks Anion gap [Moles/Vol] 9.2 mmol/L Normal [facility] Comment on above: Performed By: #### U DINA, LIPID, TSH, BNP, CMP, T7 #### [facility] [address] [place] [address] Dr. Suzie Brooks AST [Catalytic activity/Vol] 29 U/L Normal 15-[address] [facility] Comment on above: Performed By: #### U DINA, LIPID, TSH, BNP, CMP, T7 #### [facility] [address] [place] [address] Dr. Suzie Brooks Bilirubin [Mass/Vol] 0.5 mg/dL Normal 0.2-1.[address] [facility] Comment on above: Performed By: #### U DINA, LIPID, TSH, BNP, CMP, T7 #### [facility] [address] [address] [address] Suzie Brooks Calcium [Mass/Vol] 8.8 mg/dL Normal 8.5-10.1 [facility] Comment on above: Performed By: #### U DINA, LIPID, TSH, BNP, CMP, T7 #### [facility] [address] [address] [address] Suzie Brooks Chloride [Moles/Vol] 102 mmol/L Normal 98-107 [facility] Comment on above: Performed By: #### U DINA, LIPID, TSH, BNP, CMP, T7 #### [facility] [address] [address] [address] Suzie Brooks CO2 [Moles/Vol] 27.2 mmol/L Normal 21.0-32.0 [facility] Comment on above: Performed By: #### U DINA, LIPID, TSH, BNP, CMP, T7 #### [facility] [address] [place] [address] Dr. Suzie Brooks Creatinine [Mass/Vol] 0.99 mg/dL Normal 0.70-1.[address] [facility] Comment on above: Performed By: #### U DINA, LIPID, TSH, BNP, CMP, T7 #### [facility] [address] [place] [address] Dr. Suzie Brooks EGFR-AF MOSOTHO >60 Normal >=60 [facility] Comment on above: Performed By: #### U DINA, LIPID, TSH, BNP, CMP, T7 #### [facility] [address] [address] [address] Suzie Brooks EGFR-NON AF MOSOTHO >60 Normal >=[address] [facility] Comment on above: Performed By: #### U DINA, LIPID, TSH, BNP, CMP, T7 #### [facility] [address] [place] [address] Dr. Suzie Brooks Globulin (S) [Mass/Vol] 3.9 g/dL Normal [facility] Comment on above: Performed By: #### U DINA, LIPID, TSH, BNP, CMP, T7 #### [facility] [address] [place] [address] Dr. Suzie Brooks Glucose [Mass/Vol] 125 mg/dL Critically high 74-106 [facility] Comment on above: Performed By: #### U DINA, LIPID, TSH, BNP, CMP, T7 #### [facility] [address] [place] [address] Dr. Suzie Brooks Potassium [Moles/Vol] 3.4 mmol/L Critically low 3.5-5.[address] [facility] Comment on above: Performed By: #### U DINA, LIPID, TSH, BNP, CMP, T7 #### [facility] [address] [address] [address] Suzie Brooks Protein [Mass/Vol] 7.5 g/dL Normal 6.4-8.2 [facility] Comment on above: Performed By: #### U DINA, LIPID, TSH, BNP, CMP, T7 #### [facility] [address] [place] [address] Dr. Suzie Brooks Sodium [Moles/Vol] 135 mmol/L Critically low 136-145 [facility] Comment on above: Performed By: #### U DINA, LIPID, TSH, BNP, CMP, T7 #### [facility] [address] [place] [address] Dr. Suzie Brooks Urea nitrogen [Mass/Vol] 15.0 mg/dL Normal 7.0-18.[address] [facility] Comment on above: Performed By: #### U DINA, LIPID, TSH, BNP, CMP, T7 #### [facility] [address] [place] [address] Dr. Suzie Brooks Urea nitrogen/Creatinine [Mass ratio] 15.2 mg/mg Normal [facility] Comment on above: Performed By: #### U DINA, LIPID, TSH, BNP, CMP, T7 #### [facility] [address] [place] [address] Dr. Suzie Brooks PROTIMEon 07-26-2022 INR Coag (PPP) [Relative time] 0.95 {INR} Normal [facility] Comment on above: Performed By: #### C VDTBH #### [facility] [address] [place] [address] Dr. Suzie Brooks INR GUIDELINES SEE BELOW Normal [facility] Comment on above: Result Comment: TOMMY RED INR: 2.0 - 3.0 CONDITIONS NOT LISTED BELOW 2.5 - 3.5 FOR PROSTHETIC HEART VALVE REPLACEMENT 2.5 - 3.5 RECURRENT THROMBOSIS Performed By: #### C VDTBH #### [facility] [address] [address] [address] Suzie Brooks PT Coag (PPP) [Time] 10.3 s Normal 9.0-11.[address] [facility] Comment on above: Performed By: #### C VDTBH #### [facility] [address] [address] [address] Suzie Brooks PTTon 07-26-2022 aPTT Coag (Bld) [Time] 28.2 s Normal 22.3-36.[address] [facility] Comment on above: Performed By: #### C VDTBH #### [facility] [address] [address] [address] Suzie Brooks TSHon 07-26-2022 TSH 2.000 uIU/mL Normal 0.358-3.740 [facility] Comment on above: Performed By: #### O X24HR #### [facility] [address] [address] [address] Suzie Brooks XR CHEST 1 Von [...] BEHZAD CARRASQUILLO Date: 2022-07-26 10:51 Normal [facility] CREATININEon 07-18-2022 Creatinine [Mass/Vol] 0.93 mg/dL Normal 0.70-1.30 [facility] Comment on above: Performed By: #### U DINA, LIPID, TSH, BNP, CMP, T7 #### [facility] [address] [place], [place] [address] Dr. Suzie Brooks EGFR-AF MOSOTHO >60 Normal >=60 [facility] Comment on above: Performed By: #### U DINA, LIPID, TSH, BNP, CMP, T7 #### [facility] [address] [place], [place] [address] Dr. Suzie Brooks EGFR-NON AF MOSOTHO >60 Normal >=[address] [facility] Comment on above: Performed By: #### U DINA, LIPID, TSH, BNP, CMP, T7 #### [facility] [address] [place], [place] [address] Dr. Suzie Brooks XR IVPon 07-18-2022 XR IVP EXAMINATION: XR IVP HISTORY: Kidney stone COMPARISON: XR KUB 11/21/2021, CT abdomen pelvis 02/16/2022 TECHNIQUE: After obtaining patient consent a insulator cutter and former image was obtained followed by injection of [...] BEHZAD CARRASQUILLO Date: 2022-07-18 11:50 Normal [facility] INSULINon 05-16-2022 Insulin 59.0 uIU/mL Critically high 2.6-24.9 [facility] Comment on above: Performed By: #### U DINA, LIPID, TSH, BNP, CMP, T7 #### [facility] [address] [place] [address] Dr. Suzie Brooks BNPon 05-15-2022 Natriuretic peptide B (Bld) [Mass/Vol] 81.0 pg/mL Normal <=900.0 [facility] Comment on above: Performed By: #### U DINA, LIPID, TSH, BNP, CMP, T7 #### [facility] [address] [place] [address] Dr. Suzie Brooks CBC AUTO DIFFon 05-15-2022 BASO # 0.1 103/ul Normal 0.0-0.[address] [facility] Comment on above: Performed By: #### C VDTBH #### [facility] [address] [place] [address] Dr. Suzie Brooks Basophils/100 WBC (Bld) 0.6 % Normal 0.2-2.[address] [facility] Comment on above: Performed By: #### C VDTBH #### [facility] [address] [place] [address] Dr. Suzie Brooks EO # 0.3 103/ul Normal 0.0-0.[address] [facility] Comment on above: Performed By: #### C VDTBH #### [facility] [address] [place] [address] Dr. Suzie Brooks Eosinophils/100 WBC (Bld) 2.9 % Normal 0.9-7.0 [facility] Comment on above: Performed By: #### C VDTBH #### [facility] [address] [place] [address] Dr. Suzie Brooks Erythrocyte distribution width (RBC) [Ratio] 14.1 % Normal 11.0-15.0 [facility] Comment on above: Performed By: #### C VDTBH #### [facility] [address] [place] [address] Dr. Suzie Brooks Hematocrit (Bld) [Volume fraction] 46.7 % Normal 42.0-54.0 [facility] Comment on above: Performed By: #### C VDTBH #### [facility] [address] [address] [address] Suzie Brooks Hemoglobin (Bld) [Mass/Vol] 15.4 g/dL Normal 14.0-18.[address] [facility] Comment on above: Performed By: #### C VDTBH #### [facility] [address] [place] [address] Dr. Suzie Brooks IG # 0.03 10e3/ul Normal 0.00-0.[address] [facility] Comment on above: Performed By: #### C VDTBH #### [facility] [address] [place] [address] Dr. Suzie Brooks IG % 0.3 % Normal 0.0-0.[address] [facility] Comment on above: Performed By: #### C VDTBH #### [facility] [address] [place] [address] Dr. Suzie Brooks LYMPH # 2.6 103/ul Normal 1.2-3.[address] [facility] Comment on above: Performed By: #### C VDTBH #### [facility] [address] [place] [address] Dr. Suzie Brooks Lymphocytes/100 WBC (Bld) 25.1 % Normal 20.5-60.[address] [facility] Comment on above: Performed By: #### C VDTBH #### [facility] [address] [place] [address] Dr. Suzie Brooks MANUAL DIFF REQ NO Normal [facility] Comment on above: Performed By: #### C VDTBH #### [facility] [address] [place] [address] Dr. Suzie Brooks MCH (RBC) [Entitic mass] 28.6 pg Normal 25.9-34.[address] [facility] Comment on above: Performed By: #### C VDTBH #### [facility] [address] [place] [address] Dr. Suzie Brooks MCHC (RBC) [Mass/Vol] 33.0 g/dL Normal 29.9-35.[address] [facility] Comment on above: Performed By: #### C VDTBH #### [facility] [address] [address] [address] Suzie Brooks MCV (RBC) [Entitic vol] 86.8 fL Normal 80.0-94.[address] [facility] Comment on above: Performed By: #### C VDTBH #### [facility] [address] [place] [address] Dr. Suzie Brooks MONO # 0.7 103/ul Normal 0.3-0.[address] [facility] Comment on above: Performed By: #### C VDTBH #### [facility] [address] [place] [address] Dr. Suzie Brooks Monocytes/100 WBC (Bld) 6.8 % Normal 1.7-12.[address] [facility] Comment on above: Performed By: #### C VDTBH #### [facility] [address] [place] [address] Dr. Suzie Brooks NEUT # 6.5 103/ul Normal 1.4-6.[address] [facility] [facility] [facility] Comment on above: Performed By: #### C VDTBH #### [facility] [address] [place] [address] Dr. Suzie Brooks Neutrophils/100 WBC (Bld) 64.3 % Normal 43.0-75.[address] [facility] Comment on above: Performed By: #### C VDTBH #### [facility] [address] [place] [address] Dr. Suzie Brooks Platelet mean volume (Bld) [Entitic vol] 9.5 fL Normal 9.5-13.[address] [facility] Comment on above: Performed By: #### C VDTBH #### [facility] [address] [place] [address] Dr. Suize Brooks PLT 273 103/ul Normal 150-450 [facility] Comment on above: Performed By: #### C VDTBH #### [facility] [address] [place] [address] Dr. Suzie Brooks RBC 5.38 106/ul Normal 4.70-6.10 [facility] Comment on above: Performed By: #### C VDTBH #### [facility] [address] [address] [address] Suzie Brooks WBC 10.2 103/ul Normal 4.0-11.[address] [facility] Comment on above: Performed By: #### C VDTBH #### [facility] [address] [address] [address] Suzie Brooks FREE THYROXINE INDEX T7on FTI 2.23 Normal 1.30-4.[address] [facility] Comment on above: Performed By: #### U DINA, LIPID, TSH, BNP, CMP, T7 #### [facility] [address] [address] [address] Suzie Brooks T3U 36.0 % Normal 33.0-40.[address] [facility] Comment on above: Performed By: #### U DINA, LIPID, TSH, BNP, CMP, T7 #### [facility] [address] [address] [address] Suzie Brooks T4 [Mass/Vol] 6.20 ug/dL Normal 4.50-12.10 [facility] Comment on above: Performed By: #### U DINA, LIPID, TSH, BNP, CMP, T7 #### [facility] [address] [address] [address] Suzie Brooks GLYCOHEMOGLOBIN A1Con 2021 ADA RECOMMENDATION SEE BELOW Normal [facility] Comment on above: Result Comment: ADA RECOMMENDED LIMIT 4.0 - 6.0 ADA THERAPEUTIC TARGET < 7.0 ACTION SUGGESTED > 7.0 Performed By: #### U DINA, LIPID, TSH, BNP, CMP, T7 #### [facility] [address] [address] [address] Suzie Brooks Glucose [Mass/Vol] 111 mg/dL Normal [facility] Comment on above: Performed By: #### U DINA, LIPID, TSH, BNP, CMP, T7 #### [facility] [address] [address] [address] Suzie Brooks HbA1c (Bld) [Mass fraction] 5.5 % Normal 4.5-6.[address] [facility] Comment on above: Performed By: #### U DINA, LIPID, TSH, BNP, CMP, T7 #### [facility] [address] [address] [address] Suzie Brooks LIPID PROFILEon 05-15-2022 CHOL-HDL RATIO NORM SEE BELOW Normal [facility] Comment on above: Result Comment: 3.3 - 4.4 LOW RISK 4.4 - 7.1 AVERAGE RISK 7.1 - 11.0 MODERATE RISK >11.0 HIGH RISK Performed By: #### U DINA, LIPID, TSH, BNP, CMP, T7 #### [facility] [address] [address] [address] Suzie Brooks Cholesterol [Mass/Vol] 136 mg/dL Normal <=[address] [facility] Comment on above: Performed By: #### U DINA, LIPID, TSH, BNP, CMP, T7 #### [facility] [address] [address] [address] Suzie Brooks Cholesterol in HDL [Mass/Vol] 34 mg/dL Critically low 40-[address] [facility] Comment on above: Performed By: #### U DINA, LIPID, TSH, BNP, CMP, T7 #### [facility] [address] [address] [address] Suzie Brooks Cholesterol in LDL [Mass/Vol] 49.8 mg/dL Normal [facility] Comment on above: Performed By: #### U DINA, LIPID, TSH, BNP, CMP, T7 #### [facility] [address] [address] [address] Suzie Brooks Cholesterol.total/Ch olesterol in HDL [Mass ratio] 4.0 {ratio} Normal [facility] Comment on above: Performed By: #### U DINA, LIPID, TSH, BNP, CMP, T7 #### [facility] [address] [place] [address] Dr. Suzie Brooks HDL NORMAL > or = 60 mg/dl - LO W CARDIOVASCULAR RISK <40 mg/dl - HIGH CARDIOVASCULAR RISK Normal [facility] Comment on above: Performed By: #### U DINA, LIPID, TSH, BNP, CMP, T7 #### [facility] [address] [address] [address] Suzie Brooks LDL CALC NORMAL SEE BELOW Normal [facility] Comment on above: Result Comment: <100 mg/dl OPTIMAL 100 - 129 mg/dl NEAR OR ABOVE OPTIMAL 130 - 159 mg/dl BORDERLINE HIGH 160 - 189 mg/dl HIGH >190 mg/dl VERY HIGH Performed By: #### U DINA, LIPID, TSH, BNP, CMP, T7 #### [facility] [address] [address] [address] Suzie Brooks Triglyceride [Mass/Vol] 261 mg/dL Critically high <=[address] [facility] Comment on above: Performed By: #### U DINA, LIPID, TSH, BNP, CMP, T7 #### [facility] [address] [address] [address] Suzie Brooks VLDL CALC 52.2 mg/dL Normal [facility] Comment on above: Performed By: #### U DINA, LIPID, TSH, BNP, CMP, T7 #### [facility] [address] [place] [address] Dr. Suzie Brooks PROF 14(COMP METB)on 022 Albumin [Mass/Vol] 3.6 g/dL Normal 3.4-5.0 [facility] Comment on above: Performed By: #### U DINA, LIPID, TSH, BNP, CMP, T7 #### [facility] [address] [address] [address] Suzie Brooks Albumin/Globulin [Mass ratio] 0.9 {ratio} Normal [facility] Comment on above: Performed By: #### U DINA, LIPID, TSH, BNP, CMP, T7 #### [facility] [address] [address] [address] Suzie Brooks ALP [Catalytic activity/Vol] 60 U/L Normal 46-116 [facility] Comment on above: Performed By: #### U DINA, LIPID, TSH, BNP, CMP, T7 #### [facility] [address] [address] [address] Suzie Brooks ALT [Catalytic activity/Vol] 36 U/L Normal 16-[address] [facility] Comment on above: Performed By: #### U DINA, LIPID, TSH, BNP, CMP, T7 #### [facility] [address] [address] [address] Suzie Brooks Anion gap [Moles/Vol] 11.7 mmol/L Normal [facility] Comment on above: Performed By: #### U DINA, LIPID, TSH, BNP, CMP, T7 #### [facility] [address] [address] [address] Suzie Brooks AST [Catalytic activity/Vol] 28 U/L Normal 15-37 [facility] Comment on above: Performed By: #### U DINA, LIPID, TSH, BNP, CMP, T7 #### [facility] [address] [address] [address] Suzie Brooks Bilirubin [Mass/Vol] 0.6 mg/dL Normal 0.2-1.[address] [facility] Comment on above: Performed By: #### U DINA, LIPID, TSH, BNP, CMP, T7 #### [facility] [address] [place] [address] Dr. Suzie Brooks Calcium [Mass/Vol] 8.8 mg/dL Normal 8.5-10.1 [facility] Comment on above: Performed By: #### U DINA, LIPID, TSH, BNP, CMP, T7 #### [facility] [address] [place] [address] Dr. Suzie Brooks Chloride [Moles/Vol] 102 mmol/L Normal 98-[address] [facility] Comment on above: Performed By: #### U DINA, LIPID, TSH, BNP, CMP, T7 #### [facility] [address] [place] [address] Dr. Suzie Brooks CO2 [Moles/Vol] 27.9 mmol/L Normal 21.0-32.0 [facility] Comment on above: Performed By: #### U DINA, LIPID, TSH, BNP, CMP, T7 #### [facility] [address] [place] [address] Dr. Suzie Brooks Creatinine [Mass/Vol] 0.98 mg/dL Normal 0.70-1.[address] [facility] Comment on above: Performed By: #### U DINA, LIPID, TSH, BNP, CMP, T7 #### [facility] [address] [address] [address] Suzie Brooks EGFR-AF MOSOTHO >60 Normal >=60 [facility] Comment on above: Performed By: #### U DINA, LIPID, TSH, BNP, CMP, T7 #### [facility] [address] [address] [address] Suzie Brooks EGFR-NON AF MOSOTHO >60 Normal >=[address] [facility] Comment on above: Performed By: #### U DINA, LIPID, TSH, BNP, CMP, T7 #### [facility] [address] [address] [address] Suzie Brooks Globulin (S) [Mass/Vol] 3.8 g/dL Normal [facility] Comment on above: Performed By: #### U DINA, LIPID, TSH, BNP, CMP, T7 #### [facility] [address] [address] [address] Suzie Brooks Glucose [Mass/Vol] 107 mg/dL Critically high 74-106 [facility] Comment on above: Performed By: #### U DINA, LIPID, TSH, BNP, CMP, T7 #### [facility] [address] [address] [address] Suzie Brooks Potassium [Moles/Vol] 3.6 mmol/L Normal 3.5-5.[address] [facility] Comment on above: Performed By: #### U DINA, LIPID, TSH, BNP, CMP, T7 #### [facility] [address] [address] [address] Suzie Brooks Protein [Mass/Vol] 7.4 g/dL Normal 6.4-8.2 [facility] Comment on above: Performed By: #### U DINA, LIPID, TSH, BNP, CMP, T7 #### [facility] [address] [address] [address] Suzie Brooks Sodium [Moles/Vol] 138 mmol/L Normal 136-145 [facility] Comment on above: Performed By: #### U DINA, LIPID, TSH, BNP, CMP, T7 #### [facility] [address] [address] [address] Suzie Brooks Urea nitrogen [Mass/Vol] 12.0 mg/dL Normal 7.0-18.0 [facility] Comment on above: Performed By: #### U DINA, LIPID, TSH, BNP, CMP, T7 #### [facility] [address] [address] [address] Suzie Brooks Urea nitrogen/Creatinine [Mass ratio] 12.2 mg/mg Normal [facility] Comment on above: Performed By: #### U DINA, LIPID, TSH, BNP, CMP, T7 #### [facility] [address] [place] [address] Dr. Suzie Brooks TSHon 05-15-2022 TSH 2.356 uIU/mL Normal 0.358-3.740 [facility] Comment on above: Performed By: #### U DINA, LIPID, TSH, BNP, CMP, T7 #### [facility] [address] [place] [address] Dr. Suzie Brooks URIC ACID SERUMon 05-15-2022 Urate [Mass/Vol] 5.2 mg/dL Normal 3.5-7.2 [facility] Comment on above: Performed By: #### U DINA, LIPID, TSH, BNP, CMP, T7 #### [facility] [address] [place] [address] Dr. Suzie Brooks CALCULI, URINARYon 2 2,8 Dihydroxyadenine Normal [facility] Comment on above: Performed By: #### U DINA, LIPID, TSH, BNP, CMP, T7 #### [facility] [address] [place] [address] Dr. Suzie Brooks Ammonium Acid Urate Normal [facility] Comment on above: Performed By: #### U DINA, LIPID, TSH, BNP, CMP, T7 #### [facility] [address] [place] [address] Dr. Suzie Brooks Bilirubin Ql (U) Normal [facility] Comment on above: Performed By: #### U DINA, LIPID, TSH, BNP, CMP, T7 #### [facility] [address] [address] [address] Suzie Brooks Ca Oxalate Dihydrate Normal [facility] Comment on above: Performed By: #### U DINA, LIPID, TSH, BNP, CMP, T7 #### [facility] [address] [address] [address] Suzie Brooks CaHPO4 (Brushite) Normal [facility] Comment on above: Performed By: #### U DINA, LIPID, TSH, BNP, CMP, T7 #### [facility] [address] [address] [address] Suzie Brooks Calcium Bilirubinate Normal [facility] Comment on above: Performed By: #### U DINA, LIPID, TSH, BNP, CMP, T7 #### [facility] [address] [address] [address] Suzie Brooks Calcium Carbonate [facility] Comment on above: Performed By: #### U DINA, LIPID, TSH, BNP, CMP, T7 #### [facility] [address] [address] [address] Suzie Brooks Calcium Oxalate Monohydrate 70 % Normal [facility] Comment on above: Performed By: #### U DINA, LIPID, TSH, BNP, CMP, T7 #### [facility] [address] [address] [address] Suzie Brooks Calcium Palmitate [facility] Comment on above: Performed By: #### U DINA, LIPID, TSH, BNP, CMP, T7 #### [facility] [address] [address] [address] Suzie Brooks Calcium Phosphate Normal [facility] Comment on above: Performed By: #### U DINA, LIPID, TSH, BNP, CMP, T7 #### [facility] [address] [address] [address] Suzie Brooks Calcium Stearate Normal [facility] Comment on above: Performed By: #### U DINA, LIPID, TSH, BNP, CMP, T7 #### [facility] [address] [address] [address] Suzie Brooks Carbonate Apatite Normal [facility] Comment on above: Performed By: #### U DINA, LIPID, TSH, BNP, CMP, T7 #### [facility] [address] [address] [address] Suzie Brooks Cellular Material Normal [facility] Comment on above: Performed By: #### U DINA, LIPID, TSH, BNP, CMP, T7 #### [facility] [address] [address] [address] Suzie Brooks Cholesterol [facility] Comment on above: Performed By: #### U DINA, LIPID, TSH, BNP, CMP, T7 #### [facility] [address] [address] [address] Suzie Brooks Color (U) Brown [facility] Comment on above: Performed By: #### U DINA, LIPID, TSH, BNP, CMP, T7 #### [facility] [address] [address] [address] Suzie Brooks Comment [facility] Comment on above: Performed By: #### U DINA, LIPID, TSH, BNP, CMP, T7 #### [facility] [address] [address] [address] Suzie Brooks Comment Comment [facility] Comment on above: Result Comment: Calc ulus received in liquid. Wet calculi must be dried before analysis, which delays reporting of results. Leaving calculi in liquid (such as water, saline, blood, urine) may lead to changes in composition. Performed By: #### U DINA, LIPID, TSH, BNP, CMP, T7 #### [facility] [address] [address] [address] Suzie Brooks Comment: Comment Normal [facility] Comment on above: Result Comment: Phys ician questions regarding Calculi Analysis contact [facility] at: [phone]. Performed By: #### U DINA, LIPID, TSH, BNP, CMP, T7 #### [facility] [address] [address] [address] Suzie Brooks Composition Comment [facility] Comment on above: Result Comment: Perc entage (Represents the % composition) Performed By: #### U DINA, LIPID, TSH, BNP, CMP, T7 #### [facility] [address] [address] [address] Suzie Brooks Cystine Normal [facility] Comment on above: Performed By: #### U DINA, LIPID, TSH, BNP, CMP, T7 #### [facility] [address] [address] [address] Suzie Brooks Disclaimer: Comment Normal [facility] Comment on above: Result Comment: This test was developed and its performance characteristics determined by [facility]. It has not been cleared or approved by the Food and Drug Administration. Performed By: #### U DINA, LIPID, TSH, BNP, CMP, T7 #### [facility] [address] [address] [address] Suzie Brooks Dried Blood Normal [facility] Comment on above: Performed By: #### U DINA, LIPID, TSH, BNP, CMP, T7 #### [facility] [address] [address] [address] Suzie Brooks Drug or Metabolite Normal [facility] Comment on above: Performed By: #### U DINA, LIPID, TSH, BNP, CMP, T7 #### [facility] [address] [address] [address] Suzie Brooks Hydroxyapatite Normal [facility] Comment on above: Performed By: #### U DINA, LIPID, TSH, BNP, CMP, T7 #### [facility] [address] [address] [address] Suzie Brooks Mg NH4 PO4 (Struvite) Normal [facility] Comment on above: Performed By: #### U DINA, LIPID, TSH, BNP, CMP, T7 #### [facility] [address] [address] [address] Suzie Brooks MgHPO4 (Newberyite) Normal [facility] Comment on above: Performed By: #### U DINA, LIPID, TSH, BNP, CMP, T7 #### [facility] [address] [address] [address] Suzie Brooks Other component(s) Normal [facility] Comment on above: Performed By: #### U DINA, LIPID, TSH, BNP, CMP, T7 #### [facility] [address] [address] [address] Suzie Brooks PDF . Normal [facility] Comment on above: Performed By: #### U DINA, LIPID, TSH, BNP, CMP, T7 #### [facility] [address] [address] [address] Suzie Brooks Photo Comment [facility] Comment on above: Result Comment: Phot osmar will follow under a separate cover Performed By: #### U DINA, LIPID, TSH, BNP, CMP, T7 #### [facility] [address] [address] [address] Suzie Brooks Please note: Comment [facility] Comment on above: Result Comment: Calc shamika report will follow via computer, mail or name plate stamper delivery. Performed By: #### U DINA, LIPID, TSH, BNP, CMP, T7 #### [facility] [address] [address] [address] Suzie Brooks Size 6x4 [facility] Comment on above: Result Comment: Mult iple pieces received. Dimensions of the largest piece reported. Performed By: #### U DINA, LIPID, TSH, BNP, CMP, T7 #### [facility] [address] [address] [address] Suzie Brooks Sodium Acid Urate Normal [facility] Comment on above: Performed By: #### U DINA, LIPID, TSH, BNP, CMP, T7 #### [facility] [address] [address] [address] Suzie Brooks Source Comment [facility] Comment on above: Result Comment: Not provided Performed By: #### U DINA, LIPID, TSH, BNP, CMP, T7 #### [facility] [address] [address] [address] Suzie Brooks Triamterene [facility] Comment on above: Performed By: #### U DINA, LIPID, TSH, BNP, CMP, T7 #### [facility] [address] [address] [address] Suzie Brooks Uric Acid 30 % [facility] Comment on above: Performed By: #### U DINA, LIPID, TSH, BNP, CMP, T7 #### [facility] [address] [address] [address] Suzie Brooks Uric Acid Dihydrate Normal [facility] Comment on above: Performed By: #### U DINA, LIPID, TSH, BNP, CMP, T7 #### [facility] [address] [address] [address] Suzie Brooks Weight 99 mg Normal [facility] Comment on above: Performed By: #### U DINA, LIPID, TSH, BNP, CMP, T7 #### [facility] [address] [address] [address] Suzie Brooks Xanthine Normal [facility] Comment on above: Performed By: #### U DINA, LIPID, TSH, BNP, CMP, T7 #### [facility] [address] [address] [address] Suzie Brooks CBC AUTO DIFFon 02-18-2022 BASO # 0.0 103/ul Normal 0.0-0.[address] [facility] Comment on above: Performed By: #### U DINA, LIPID, TSH, BNP, CMP, T7 #### [facility] [address] [address] [address] Suzie Brooks Basophils/100 WBC (Bld) 0.3 % Normal 0.2-2.[address] [facility] Comment on above: Performed By: #### U DINA, LIPID, TSH, BNP, CMP, T7 #### [facility] [address] [address] [address] Suzie Brooks EO # 0.3 103/ul Normal 0.0-0.[address] [facility] Comment on above: Performed By: #### U DINA, LIPID, TSH, BNP, CMP, T7 #### [facility] [address] [address] [address] Suzie Brooks Eosinophils/100 WBC (Bld) 2.3 % Normal 0.9-7.[address] [facility] Comment on above: Performed By: #### U DINA, LIPID, TSH, BNP, CMP, T7 #### [facility] [address] [address] [address] Suzie Brooks Erythrocyte distribution width (RBC) [Ratio] 14.2 % Normal 11.0-15.[address] [facility] Comment on above: Performed By: #### U DINA, LIPID, TSH, BNP, CMP, T7 #### [facility] [address] [place] [address] Dr. Suzie Brooks Hematocrit (Bld) [Volume fraction] 41.3 % Critically low 42.0-54.0 [facility] Comment on above: Performed By: #### U DINA, LIPID, TSH, BNP, CMP, T7 #### [facility] [address] [address] [address] Suzie Brooks Hemoglobin (Bld) [Mass/Vol] 13.4 g/dL Critically low 14.0-18.0 [facility] Comment on above: Performed By: #### U DINA, LIPID, TSH, BNP, CMP, T7 #### [facility] [address] [place] [address] Dr. Suzie Brooks IG # 0.03 10e3/ul Normal 0.00-0.[address] [facility] Comment on above: Performed By: #### U DINA, LIPID, TSH, BNP, CMP, T7 #### [facility] [address] [place] [address] Dr. Suzie Brooks IG % 0.3 % Normal 0.0-0.5 [facility] Comment on above: Performed By: #### U DINA, LIPID, TSH, BNP, CMP, T7 #### [facility] [address] [place] [address] Dr. Suzie Brooks LYMPH # 2.0 103/ul Normal 1.2-3.8 [facility] Comment on above: Performed By: #### U DINA, LIPID, TSH, BNP, CMP, T7 #### [facility] [address] [address] [address] Suzie Brooks Lymphocytes/100 WBC (Bld) 18.0 % Critically low 20.5-60.[address] [facility] Comment on above: Performed By: #### U DINA, LIPID, TSH, BNP, CMP, T7 #### [facility] [address] [place] [address] Dr. Suzie Brooks MANUAL DIFF REQ NO Normal [facility] Comment on above: Performed By: #### U DINA, LIPID, TSH, BNP, CMP, T7 #### [facility] [address] [place] [address] Dr. Suzie Brooks MCH (RBC) [Entitic mass] 28.8 pg Normal 25.9-34.0 [facility] Comment on above: Performed By: #### U DINA, LIPID, TSH, BNP, CMP, T7 #### [facility] [address] [place] [address] Dr. Suzie Brooks MCHC (RBC) [Mass/Vol] 32.4 g/dL Normal 29.9-35.2 [facility] Comment on above: Performed By: #### U DINA, LIPID, TSH, BNP, CMP, T7 #### [facility] [address] [place] [address] Dr. Suzie Brooks MCV (RBC) [Entitic vol] 88.6 fL Normal 80.0-94.0 [facility] Comment on above: Performed By: #### U DINA, LIPID, TSH, BNP, CMP, T7 #### [facility] [address] [place] [address] Dr. Suzie Brooks MONO # 1.0 103/ul Critically high 0.3-0.8 [facility] Comment on above: Performed By: #### U DINA, LIPID, TSH, BNP, CMP, T7 #### [facility] [address] [place] [address] Dr. Suzie Brooks Monocytes/100 WBC (Bld) 9.2 % Normal 1.7-12.0 [facility] Comment on above: Performed By: #### U DINA, LIPID, TSH, BNP, CMP, T7 #### [facility] [address] [place] [address] Dr. Suzie Brooks NEUT # 7.9 103/ul Critically high 1.4-6.5 [facility] Comment on above: Performed By: #### U DINA, LIPID, TSH, BNP, CMP, T7 #### [facility] [address] [place] [address] Dr. Suzie Brooks Neutrophils/100 WBC (Bld) 69.9 % Normal 43.0-75.0 [facility] Comment on above: Performed By: #### U DINA, LIPID, TSH, BNP, CMP, T7 #### [facility] [address] [address] [address] Suzie Brooks Platelet mean volume (Bld) [Entitic vol] 9.6 fL Normal 9.5-13.5 [facility] Comment on above: Performed By: #### U DINA, LIPID, TSH, BNP, CMP, T7 #### [facility] [address] [address] [address] Suzie Brooks PLT 218 103/ul Normal 150-450 [facility] Comment on above: Performed By: #### U DINA, LIPID, TSH, BNP, CMP, T7 #### [facility] [address] [place] [address] Dr. Suzie Brooks RBC 4.66 106/ul Critically low 4.70-6.10 [facility] Comment on above: Performed By: #### U DINA, LIPID, TSH, BNP, CMP, T7 #### [facility] [address] [address] [address] Suzie Brooks WBC 11.3 103/ul Critically high 4.0-11.0 The [facility] Comment on above: Performed By: #### U DINA, LIPID, TSH, BNP, CMP, T7 #### [facility] [address] [place] [address] Dr. Suzie Brooks CULTURE URINEon 02-18-2022 CULTURE URINE Culture Observations : NO GROWTH. Normal [facility] Comment on above: Performed By: #### M AG24 #### [facility] [address] [place] [address] Dr. Suzie Brooks [facility]08 SARS-CoV-2 (COVID-19) RNA SUKHJINDER+probe Ql (Unsp spec) Not detected Normal NOT DETECTED [facility] Comment on above: Result Comment: When [...] for this test is supported by the [place] of Health and Human Service's declaration that [...] used). Performed By: #### C VDTBH #### [facility] [address] [place] [address] Dr. Suzie Brooks PROF 14(COMP METB)on 022 Albumin [Mass/Vol] 3.0 g/dL Critically low 3.4-5.0 Th [facility] Comment on above: Performed By: #### O [id number] #### [facility] [address] [place] [address] Dr. Suzie Brooks Albumin/Globulin [Mass ratio] 0.9 {ratio} Normal [facility] Comment on above: Performed By: #### O [id number] #### [facility] [address] [place] [address] Dr. Suzie Brooks ALP [Catalytic activity/Vol] 49 U/L Normal 46-[address] [facility] Comment on above: Performed By: #### O [id number] #### [facility] [address] [place] [address] Dr. Suzie Brooks ALT [Catalytic activity/Vol] 35 U/L Normal 16-[address] [facility] Comment on above: Performed By: #### O [id number] #### [facility] [address] [place] [address] Dr. Suzie Brooks Anion gap [Moles/Vol] 11.8 mmol/L Normal [facility] Comment on above: Performed By: #### O [id number] #### [facility] [address] [place] [address] Dr. Suzie Brooks AST [Catalytic activity/Vol] 27 U/L Normal 15-[address] [facility] Comment on above: Performed By: #### O [id number] #### [facility] [address] [place] [address] Dr. Suzie Brooks Bilirubin [Mass/Vol] 0.4 mg/dL Normal 0.2-1.[address] [facility] Comment on above: Performed By: #### O X24HR #### [facility] [address] [place] [address] Dr. Suzie Brooks Calcium [Mass/Vol] 7.6 mg/dL Critically low 8.5-10.1 Th e [facility] Comment on above: Performed By: #### O [id number] #### [facility] [address] [place] [address] Dr. Suzie Brooks Chloride [Moles/Vol] 106 mmol/L Normal 98-[address] [facility] Comment on above: Performed By: #### O X24HR #### [facility] [address] [place] [address] Dr. Suzie Brooks CO2 [Moles/Vol] 26.2 mmol/L Normal 21.0-32.0 [facility] Comment on above: Performed By: #### O X24HR #### [facility] [address] [place] [address] Dr. Suzie Brooks Creatinine [Mass/Vol] 1.08 mg/dL Normal 0.70-1.[address] [facility] Comment on above: Performed By: #### O X24HR #### [facility] [address] [place] [address] Dr. Suzie Brooks EGFR-AF MOSOTHO >60 Normal >=60 [facility] Comment on above: Performed By: #### O X24HR #### [facility] [address] [place] [address] Dr. Suzie Brooks EGFR-NON AF MOSOTHO >60 Normal >=[address] [facility] Comment on above: Performed By: #### O X24HR #### [facility] [address] [place] [address] Dr. Suzie Brooks Globulin (S) [Mass/Vol] 3.2 g/dL Normal [facility] Comment on above: Performed By: #### O X24HR #### [facility] [address] [place] [address] Dr. Suzie Brooks Glucose [Mass/Vol] 107 mg/dL Critically high 74-106 T [facility] Comment on above: Performed By: #### O X24HR #### [facility] [address] [place] [address] Dr. Suzie Brooks Potassium [Moles/Vol] 4.0 mmol/L Normal 3.5-5.[address] [facility] Comment on above: Performed By: #### O X24HR #### [facility] [address] [place] [address] Dr. Suzie Brooks Protein [Mass/Vol] 6.2 g/dL Critically low 6.4-8.2 Th [facility] Comment on above: Performed By: #### O X24HR #### [facility] [address] [place] [address] Dr. Suzie Brooks Sodium [Moles/Vol] 140 mmol/L Normal 136-145 [facility] Comment on above: Performed By: #### O X24HR #### [facility] [address] [place] [address] Dr. Suzie Brooks Urea nitrogen [Mass/Vol] 14.0 mg/dL Normal 7.0-18.[address] [facility] Comment on above: Performed By: #### O X24HR #### [facility] [address] [place] [address] Dr. Suzie Brooks Urea nitrogen/Creatinine [Mass ratio] 13.0 mg/mg Normal [facility] Comment on above: Performed By: #### O X24HR #### [facility] [address] [place] [address] Dr. Suzie Brooks CBC AUTO DIFFon 02-17-2022 BASO # 0.1 103/ul Normal 0.0-0.[address] [facility] Comment on above: Performed By: #### M AG24 #### [facility] [address] [address] [address] Suzie Brooks Basophils/100 WBC (Bld) 0.4 % Normal 0.2-2.[address] [facility] Comment on above: Performed By: #### M AG24 #### [facility] [address] [place] [address] Dr. Suzie Brooks EO # 0.3 103/ul Normal 0.0-0.7 [facility] Comment on above: Performed By: #### M AG24 #### [facility] [address] [place] [address] Dr. Suzie Brooks Eosinophils/100 WBC (Bld) 2.3 % Normal 0.9-7.0 [facility] Comment on above: Performed By: #### M AG24 #### [facility] [address] [place] [address] Dr. Suzie Brooks Erythrocyte distribution width (RBC) [Ratio] 13.8 % Normal 11.0-15.[address] [facility] Comment on above: Performed By: #### M AG24 #### [facility] [address] [place] [address] Dr. Suzie Brooks Hematocrit (Bld) [Volume fraction] 45.2 % Normal 42.0-54.[address] [facility] Comment on above: Performed By: #### M AG24 #### [facility] [address] [place] [address] Dr. Suzie Brooks Hemoglobin (Bld) [Mass/Vol] 14.9 g/dL Normal 14.0-18.[address] [facility] Comment on above: Performed By: #### M AG24 #### [facility] [address] [place] [address] Dr. Suzie Brooks IG # 0.05 10e3/ul Critically high 0.00-0.03 [facility] Comment on above: Performed By: #### M AG24 #### [facility] [address] [place] [address] Dr. Suzie Brooks IG % 0.4 % Normal 0.0-0.5 [facility] Comment on above: Performed By: #### M AG24 #### [facility] [address] [address] [address] Suzie Brooks LYMPH # 2.5 103/ul Normal 1.2-3.8 [facility] Comment on above: Performed By: #### M AG24 #### [facility] [address] [address] [address] Suzie Brooks Lymphocytes/100 WBC (Bld) 17.3 % Critically low 20.5-60.0 [facility] Comment on above: Performed By: #### M AG24 #### [facility] [address] [address] [address] Suzie Brooks MANUAL DIFF REQ NO Normal [facility] Comment on above: Performed By: #### M AG24 #### [facility] [address] [place] [address] Dr. Suzie Brooks MCH (RBC) [Entitic mass] 28.7 pg Normal 25.9-34.[address] [facility] Comment on above: Performed By: #### M AG24 #### [facility] [address] [place] [address] Dr. Suzie Brooks MCHC (RBC) [Mass/Vol] 33.0 g/dL Normal 29.9-35.2 [facility] Comment on above: Performed By: #### M AG24 #### [facility] [address] [place] [address] Dr. Suzie Brooks MCV (RBC) [Entitic vol] 87.1 fL Normal 80.0-94.0 [facility] Comment on above: Performed By: #### M AG24 #### [facility] [address] [place] [address] Dr. Suzie Brooks MONO # 1.0 103/ul Critically high 0.3-0.8 [facility] Comment on above: Performed By: #### M AG24 #### [facility] [address] [place] [address] Dr. Suzie Brooks Monocytes/100 WBC (Bld) 6.8 % Normal 1.7-12.0 [facility] Comment on above: Performed By: #### M AG24 #### [facility] [address] [place] [address] Dr. Suzie Brooks NEUT # 10.3 103/ul Critically high 1.4-6.5 [facility] Comment on above: Performed By: #### M AG24 #### [facility] [address] [place] [address] Dr. Suzie Brooks Neutrophils/100 WBC (Bld) 72.8 % Normal 43.0-75.0 [facility] Comment on above: Performed By: #### M AG24 #### [facility] [address] [place] [address] Dr. Suzie Brooks Platelet mean volume (Bld) [Entitic vol] 9.7 fL Normal 9.5-13.5 [facility] Comment on above: Performed By: #### M AG24 #### [facility] [address] [place] [address] Dr. Suzie Brooks PLT 253 103/ul Normal 150-450 [facility] Comment on above: Performed By: #### M AG24 #### [facility] [address] [place] [address] Dr. Suzie Brooks RBC 5.19 106/ul Normal 4.70-6.10 [facility] Comment on above: Performed By: #### M AG24 #### [facility] [address] [place] [address] Dr. Suzie Brooks WBC 14.2 103/ul Critically high 4.0-11.0 [facility] Comment on above: Performed By: #### M AG24 #### [facility] [address] [place] [address] Dr. Suzie Brooks CULTURE BLOODon 02-17-2022 Microscopic examination of blood, culture Culture Observations: NO GROWTH AT 5 DAYS. Normal [facility] Comment on above: Performed By: #### M AG24 #### [facility] [address] [place] [address] Dr. Suzie Brooks Microscopic examination of blood, culture Culture Observations: NO GROWTH AT 5 DAYS. Normal [facility] Comment on above: Performed By: #### M AG24 #### [facility] [address] [place] [address] Dr. Suzie Brooks ER URINE PROFILEon 2 Bilirubin Ql (U) Negative Normal NEGATIVE [facility] Comment on above: Performed By: #### E RUR #### [facility] [address] [place] [address] Dr. Suzie Brooks Clarity (U) CLEAR Normal CLEAR [facility] Comment on above: Performed By: #### E RUR #### [facility] [address] [place] [address] Dr. Suzie Brooks Color (U) DK. YELLOW Normal YELLOW [facility] Comment on above: Performed By: #### E RUR #### [facility] [address] [place] [address] Dr. Suzie Brooks ERUAHD A micrscopic examina tion will be performed if indicated. Normal [facility] Comment on above: Performed By: #### E RUR #### [facility] [address] [place] [address] Dr. Suzie Brooks Glucose Ql (U) Negative Normal NEGATIVE [facility] Comment on above: Performed By: #### E RUR #### [facility] [address] [place] [address] Dr. Suzie Brooks Hemoglobin Ql (U) Negative Normal NEGATIVE [facility] Comment on above: Performed By: #### E RUR #### [facility] [address] [place] [address] Dr. Suzie Brooks Ketones Ql (U) Negative Normal NEGATIVE [facility] Comment on above: Performed By: #### E RUR #### [facility] [address] [place] [address] Dr. Suzie Brooks LEUKOCYTES Negative Normal NEGATIVE [facility] Comment on above: Performed By: #### E RUR #### [facility] [address] [place] [address] Dr. Suzie Brooks Nitrite Ql (U) Negative Normal NEGATIVE [facility] Comment on above: Performed By: #### E RUR #### [facility] [address] [place] [address] Dr. Suzie Brooks pH (U) 5.0 [pH] Normal 5-[address] [facility] Comment on above: Performed By: #### E RUR #### [facility] [address] [place] [address] Dr. Suzie Brooks SPEC GRAVITY >=1.030 Abnormal 1.005-<=1.[address] [facility] Comment on above: Performed By: #### E RUR #### [facility] [address] [place] [address] Dr. Suzie Brooks UA PROTEIN Negative Normal NEGATIVE/ TRACE [facility] Comment on above: Performed By: #### E RUR #### [facility] [address] [place] [address] Dr. Suzie Brooks UR MICRO IND NOT INDICATED Normal [facility] Comment on above: Performed By: #### E RUR #### [facility] [address] [place] [address] Dr. Suzie Brooks Urobilinogen Qn (U) 0.2 {Behzad'U}/dL Normal 0.2 - 1. [address] [facility] Comment on above: Performed By: #### E RUR #### [facility] [address] [place] [address] Dr. Suzie Brooks LACTATE/LACTIC ACIDon 2021 Lactate [Moles/Vol] 1.4 mmol/L Normal 0.4-1.9 [facility] Comment on above: Performed By: #### U DINA, LIPID, TSH, BNP, CMP, T7 #### [facility] [address] [place] [address] Dr. Suzie Brooks PROF CHEM 8 (BAS METB)on Anion gap [Moles/Vol] 12.2 mmol/L Normal [facility] Comment on above: Performed By: #### U DINA, LIPID, TSH, BNP, CMP, T7 #### [facility] [address] [place] [address] Dr. Suzie Brooks Calcium [Mass/Vol] 8.1 mg/dL Critically low 8.5-10.1 Th [facility] Comment on above: Performed By: #### U DINA, LIPID, TSH, BNP, CMP, T7 #### [facility] [address] [address] [address] Suzie Brooks Chloride [Moles/Vol] 103 mmol/L Normal 98-[address] [facility] Comment on above: Performed By: #### U DINA, LIPID, TSH, BNP, CMP, T7 #### [facility] [address] [address] [address] Suzie Brooks CO2 [Moles/Vol] 26.1 mmol/L Normal 21.0-32.0 [facility] Comment on above: Performed By: #### U DINA, LIPID, TSH, BNP, CMP, T7 #### [facility] [address] [place] [address] Dr. Suzie Brooks Creatinine [Mass/Vol] 1.06 mg/dL Normal 0.70-1.[address] [facility] Comment on above: Performed By: #### U DINA, LIPID, TSH, BNP, CMP, T7 #### [facility] [address] [place] [address] Dr. Suzie Brooks EGFR-AF MOSOTHO >60 Normal >=60 [facility] Comment on above: Performed By: #### U DINA, LIPID, TSH, BNP, CMP, T7 #### [facility] [address] [place] [address] Dr. Suzie Brooks EGFR-NON AF MOSOTHO >60 Normal >=[address] [facility] Comment on above: Performed By: #### U DINA, LIPID, TSH, BNP, CMP, T7 #### [facility] [address] [place] [address] Dr. Suzie Brooks Glucose [Mass/Vol] 138 mg/dL Critically high 74-106 [facility] Comment on above: Performed By: #### U DINA, LIPID, TSH, BNP, CMP, T7 #### [facility] [address] [place] [address] Dr. Suzie Brooks Potassium [Moles/Vol] 4.3 mmol/L Normal 3.5-5.[address] [facility] Comment on above: Performed By: #### U DINA, LIPID, TSH, BNP, CMP, T7 #### [facility] [address] [address] [address] Suzie Brooks Sodium [Moles/Vol] 137 mmol/L Normal 136-145 [facility] Comment on above: Performed By: #### U DINA, LIPID, TSH, BNP, CMP, T7 #### [facility] [address] [place] [address] Dr. Suzie Brooks Urea nitrogen [Mass/Vol] 14.0 mg/dL Normal 7.0-18.[address] [facility] Comment on above: Performed By: #### U DINA, LIPID, TSH, BNP, CMP, T7 #### [facility] [address] [place] [address] Dr. Suzie Brooks Urea nitrogen/Creatinine [Mass ratio] 13.2 mg/mg Normal [facility] Comment on above: Performed By: #### U DINA, LIPID, TSH, BNP, CMP, T7 #### [facility] [address] [place] [address] Dr. Suzie Brooks TROPONIN, HIGH SENSITIVITYon 02-17-2022 HSTROP 8.4 pg/mL Normal 4.0-76.[address] [facility] Comment on above: Result Comment: CUT- OFF POINTS HAVE BEEN ESTABLISHED BASED ON THE FOURTH UNIVERSAL DEFINITIONS OF MYOCARDIAL INFARCTION. THE UPPER REFERENCE LIMIT (URL) OF TROPONIN, DEFINED THE 99TH PERCENTILE OF cTnI DISTRIBUTION IN A REFERENCE POPULATION, HAS BEEN CONFIRMED THE DECISION THRESHOLD FOR [place] DIAGNOSIS. Performed By: #### U DINA, LIPID, TSH, BNP, CMP, T7 #### [facility] [address] [place] [address] Dr. Suzie Brooks CBC AUTO DIFFon 02-16-2022 BASO # 0.1 103/ul Normal 0.0-0.[address] [facility] Comment on above: Performed By: #### U DINA, LIPID, TSH, BNP, CMP, T7 #### [facility] [address] [place] [address] Dr. Suzie Brooks Basophils/100 WBC (Bld) 0.4 % Normal 0.2-2.[address] [facility] Comment on above: Performed By: #### U DINA, LIPID, TSH, BNP, CMP, T7 #### [facility] [address] [place] [address] Dr. Suzie Brooks EO # 0.3 103/ul Normal 0.0-0.7 [facility] Comment on above: Performed By: #### U DINA, LIPID, TSH, BNP, CMP, T7 #### [facility] [address] [place] [address] Dr. Suzie Brooks Eosinophils/100 WBC (Bld) 2.5 % Normal 0.9-7.0 [facility] Comment on above: Performed By: #### U DIAN, LIPID, TSH, BNP, CMP, T7 #### [facility] [address] [address] [address] Suzie Brooks Erythrocyte distribution width (RBC) [Ratio] 13.9 % Normal 11.0-15.[address] [facility] Comment on above: Performed By: #### U DINA, LIPID, TSH, BNP, CMP, T7 #### [facility] [address] [place] [address] Dr. Suzie Brooks Hematocrit (Bld) [Volume fraction] 46.6 % Normal 42.0-54.[address] [facility] Comment on above: Performed By: #### U DINA, LIPID, TSH, BNP, CMP, T7 #### [facility] [address] [place] [address] Dr. Suzie Brooks Hemoglobin (Bld) [Mass/Vol] 15.7 g/dL Normal 14.0-18.[address] [facility] Comment on above: Performed By: #### U DINA, LIPID, TSH, BNP, CMP, T7 #### [facility] [address] [place] [address] Dr. Suzie Brooks IG # 0.05 10e3/ul Critically high 0.00-0.03 [facility] Comment on above: Performed By: #### U DINA, LIPID, TSH, BNP, CMP, T7 #### [facility] [address] [place] [address] Dr. Suzie Brooks IG % 0.4 % Normal 0.0-0.[address] [facility] Comment on above: Performed By: #### U DINA, LIPID, TSH, BNP, CMP, T7 #### [facility] [address] [place] [address] Dr. Suzie Brooks LYMPH # 3.7 103/ul Normal 1.2-3.8 [facility] Comment on above: Performed By: #### U DINA, LIPID, TSH, BNP, CMP, T7 #### [facility] [address] [place] [address] Dr. Suzie Brooks Lymphocytes/100 WBC (Bld) 26.6 % Normal 20.5-60.0 [facility] Comment on above: Performed By: #### U DINA, LIPID, TSH, BNP, CMP, T7 #### [facility] [address] [place] [address] Dr. Suzie Brooks MANUAL DIFF REQ NO Normal [facility] Comment on above: Performed By: #### U DINA, LIPID, TSH, BNP, CMP, T7 #### [facility] [address] [place] [address] Dr. Suzie Brooks MCH (RBC) [Entitic mass] 29.2 pg Normal 25.9-34.0 [facility] Comment on above: Performed By: #### U DINA, LIPID, TSH, BNP, CMP, T7 #### [facility] [address] [place] [address] Dr. Suzie Brooks MCHC (RBC) [Mass/Vol] 33.7 g/dL Normal 29.9-35.2 [facility] Comment on above: Performed By: #### U DINA, LIPID, TSH, BNP, CMP, T7 #### [facility] [address] [place] [address] Dr. Suzie Brooks MCV (RBC) [Entitic vol] 86.6 fL Normal 80.0-94.0 [facility] Comment on above: Performed By: #### U DINA, LIPID, TSH, BNP, CMP, T7 #### [facility] [address] [place] [address] Dr. Suzie Brooks MONO # 1.0 103/ul Critically high 0.3-0.8 [facility] Comment on above: Performed By: #### U DINA, LIPID, TSH, BNP, CMP, T7 #### [facility] [address] [address] [address] Suzie Brooks Monocytes/100 WBC (Bld) 7.2 % Normal 1.7-12.0 [facility] Comment on above: Performed By: #### U DINA, LIPID, TSH, BNP, CMP, T7 #### [facility] [address] [address] [address] Suzie Brooks NEUT # 8.7 103/ul Critically high 1.4-6.5 [facility] Comment on above: Performed By: #### U DINA, LIPID, TSH, BNP, CMP, T7 #### [facility] [address] [address] [address] Suzie Brooks Neutrophils/100 WBC (Bld) 62.9 % Normal 43.0-75.0 [facility] Comment on above: Performed By: #### U DINA, LIPID, TSH, BNP, CMP, T7 #### [facility] [address] [place] [address] Dr. Suzie Brooks Platelet mean volume (Bld) [Entitic vol] 9.4 fL Critically low 9.5-13.5 [facility] Comment on above: Performed By: #### U DINA, LIPID, TSH, BNP, CMP, T7 #### [facility] [address] [place] [address] Dr. Suzie Brooks PLT 277 103/ul Normal 150-450 [facility] Comment on above: Performed By: #### U DINA, LIPID, TSH, BNP, CMP, T7 #### [facility] [address] [place] [address] Dr. Suzie Brooks RBC 5.38 106/ul Normal 4.70-6.10 [facility] Comment on above: Performed By: #### U DINA, LIPID, TSH, BNP, CMP, T7 #### [facility] [address] [place] [address] Dr. Suzie Brooks WBC 13.8 103/ul Critically high 4.0-11.0 [facility] Comment on above: Performed By: #### U DINA, LIPID, TSH, BNP, CMP, T7 #### [facility] [address] [address] [address] ABD/PELVIS WO CONon [...] Reilly CAST Date: 2022-02-16 20:51 Normal [facility] ER URINE PROFILEon 2 Bilirubin Ql (U) Negative Normal NEGATIVE The [facility] Comment on above: Performed By: #### U DINA, LIPID, TSH, BNP, CMP, T7 #### [facility] [address] [address] [address] Suzie Brooks Clarity (U) CLEAR Normal CLEAR [facility] Comment on above: Performed By: #### U DINA, LIPID, TSH, BNP, CMP, T7 #### [facility] [address] [address] [address] Suzie Brooks Color (U) YELLOW Normal YELLOW [facility] Comment on above: Performed By: #### U DINA, LIPID, TSH, BNP, CMP, T7 #### [facility] [address] [place] [address] Dr. Suzie Brooks ERUAHD A micrscopic examina tion will be performed if indicated. Normal [facility] Comment on above: Performed By: #### U DINA, LIPID, TSH, BNP, CMP, T7 #### [facility] [address] [address] [address] Suzie Brooks Glucose Ql (U) Negative Normal NEGATIVE The [facility] Comment on above: Performed By: #### U DINA, LIPID, TSH, BNP, CMP, T7 #### [facility] [address] [address] [address] Suzie Brooks Hemoglobin Ql (U) MODERATE Abnormal NEGATIVE The [facility] Comment on above: Performed By: #### U DINA, LIPID, TSH, BNP, CMP, T7 #### [facility] [address] [address] [address] Suzie Brooks Ketones Ql (U) Negative Normal NEGATIVE [facility] Comment on above: Performed By: #### U DINA, LIPID, TSH, BNP, CMP, T7 #### [facility] [address] [address] [address] Suzie Brooks LEUKOCYTES Negative Normal NEGATIVE The [facility] Comment on above: Performed By: #### U DINA, LIPID, TSH, BNP, CMP, T7 #### [facility] [address] [place] [address] Dr. Suzie Brooks Nitrite Ql (U) Negative Normal NEGATIVE [facility] Comment on above: Performed By: #### U DINA, LIPID, TSH, BNP, CMP, T7 #### [facility] [address] [place] [address] Dr. Suzie Brooks pH (U) 5.5 [pH] Normal 5-[address] [facility] Comment on above: Performed By: #### U DINA, LIPID, TSH, BNP, CMP, T7 #### [facility] [address] [place] [address] Dr. Suzie Brooks SPEC GRAVITY >=1.030 Abnormal 1.005-<=1.[address] [facility] Comment on above: Performed By: #### U DINA, LIPID, TSH, BNP, CMP, T7 #### [facility] [address] [place] [address] Dr. Suzie Brooks UA PROTEIN Negative Normal NEGATIVE/ TRACE [facility] Comment on above: Performed By: #### U DINA, LIPID, TSH, BNP, CMP, T7 #### [facility] [address] [place] [address] Dr. Suzie Brooks UR MICRO IND INDICATED Normal [facility] Comment on above: Performed By: #### U DINA, LIPID, TSH, BNP, CMP, T7 #### [facility] [address] [place] [address] Dr. Suzie Brooks Urobilinogen Qn (U) 0.2 {Behzad'U}/dL Normal 0.2 - 1. [address] [facility] Comment on above: Performed By: #### U DINA, LIPID, TSH, BNP, CMP, T7 #### [facility] [address] [place] [address] Dr. Suzie Brooks PROF CHEM 8 (BAS METB)on Anion gap [Moles/Vol] 12.2 mmol/L Normal [facility] Comment on above: Performed By: #### U DINA, LIPID, TSH, BNP, CMP, T7 #### [facility] [address] [address] [address] Suzie Brooks Calcium [Mass/Vol] 8.5 mg/dL Normal 8.5-10.1 [facility] Comment on above: Performed By: #### U DINA, LIPID, TSH, BNP, CMP, T7 #### [facility] [address] [address] [address] Suzie Brooks Chloride [Moles/Vol] 104 mmol/L Normal 98-[address] [facility] Comment on above: Performed By: #### U DINA, LIPID, TSH, BNP, CMP, T7 #### [facility] [address] [place] [address] Dr. Suzie Brooks CO2 [Moles/Vol] 24.1 mmol/L Normal 21.0-32.0 [facility] Comment on above: Performed By: #### U DINA, LIPID, TSH, BNP, CMP, T7 #### [facility] [address] [address] [address] Suzie Brooks Creatinine [Mass/Vol] 1.14 mg/dL Normal 0.70-1.[address] [facility] Comment on above: Performed By: #### U DINA, LIPID, TSH, BNP, CMP, T7 #### [facility] [address] [place] [address] Dr. Suzie Brooks EGFR-AF MOSOTHO >60 Normal >=60 [facility] Comment on above: Performed By: #### U DINA, LIPID, TSH, BNP, CMP, T7 #### [facility] [address] [place] [address] Dr. Suzie Brooks EGFR-NON AF MOSOTHO >60 Normal >=[address] [facility] Comment on above: Performed By: #### U DINA, LIPID, TSH, BNP, CMP, T7 #### [facility] [address] [place] [address] Dr. Suzie Brooks Glucose [Mass/Vol] 114 mg/dL Critically high 74-106 [facility] Comment on above: Performed By: #### U DINA, LIPID, TSH, BNP, CMP, T7 #### [facility] [address] [address] [address] Suzie Brooks Potassium [Moles/Vol] 4.3 mmol/L Normal 3.5-5.[address] [facility] Comment on above: Performed By: #### U DINA, LIPID, TSH, BNP, CMP, T7 #### [facility] [address] [place] [address] Dr. Suzie Brooks Sodium [Moles/Vol] 136 mmol/L Normal 136-145 [facility] Comment on above: Performed By: #### U DINA, LIPID, TSH, BNP, CMP, T7 #### [facility] [address] [place] [address] Dr. Suzie Brooks Urea nitrogen [Mass/Vol] 14.0 mg/dL Normal 7.0-18.[address] [facility] Comment on above: Performed By: #### U DINA, LIPID, TSH, BNP, CMP, T7 #### [facility] [address] [place] [address] Dr. Suzie Brooks Urea nitrogen/Creatinine [Mass ratio] 12.3 mg/mg Normal [facility] Comment on above: Performed By: #### U DINA, LIPID, TSH, BNP, CMP, T7 #### [facility] [address] [place] [address] Dr. Suzie Brooks URINE MICROSCOPIC ONLYon BACTERIA NONE SEEN Normal NONE SEEN [facility] Comment on above: Performed By: #### U DINA, LIPID, TSH, BNP, CMP, T7 #### [facility] [address] [place] [address] Dr. Suzie Brooks Bacteria identified Cx Nom (U) NOT INDICATED Normal [facility] Comment on above: Performed By: #### U DINA, LIPID, TSH, BNP, CMP, T7 #### [facility] [address] [place] [address] Dr. Suzie Brooks CAST NONE SEEN Normal NONE SEEN [facility] Comment on above: Performed By: #### U DINA, LIPID, TSH, BNP, CMP, T7 #### [facility] [address] [place] [address] Dr. Suzie Brooks Crystals LM Nom (Urine sed) NONE SEEN Normal NONE SEEN [facility] Comment on above: Performed By: #### U DINA, LIPID, TSH, BNP, CMP, T7 #### [facility] [address] [address] [address] Suzie Brooks Epithelial cells LM Ql (Urine sed) RARE Normal NONE SEEN /RARE [facility] Comment on above: Performed By: #### U DINA, LIPID, TSH, BNP, CMP, T7 #### [facility] [address] [address] [address] Suzie Brooks MUCOUS NONE SEEN Normal NONE SEEN [facility] Comment on above: Performed By: #### U DINA, LIPID, TSH, BNP, CMP, T7 #### [facility] [address] [address] [address] Suzie Brooks RBC 5-10 Abnormal 0-[address] [facility] Comment on above: Performed By: #### U DINA, LIPID, TSH, BNP, CMP, T7 #### [facility] [address] [address] [address] Suzie Brooks WBC NONE SEEN Normal NONE SEEN [facility] Comment on above: Performed By: #### U DINA, LIPID, TSH, BNP, CMP, T7 #### [facility] [address] [address] [address] Suzie Brooks CITRATE URINE 24HRon 022 Citric Acid, U, 24hr 1312 mg/24 hr Critically high 320-[address] [facility] Comment on above: Result Comment: This test was developed and its performance characteristics determined by [facility]. It has not been cleared or approved by the Food and Drug Administration. Performed By: #### U DINA, LIPID, TSH, BNP, CMP, T7 #### [facility] [address] [address] [address] Suzie Brooks Citric Acid, Urine 610 mg/L Normal Undefined [facility] Comment on above: Performed By: #### U DINA, LIPID, TSH, BNP, CMP, T7 #### [facility] [address] [address] [address] Suzie Brooks OXALATE 24HR URINEon 06-28-2 022 Oxalates, Urine 11 mg/L Normal Undefined [facility] Comment on above: Performed By: #### O [id number] #### [facility] [address] [place] [address] Dr. Suzie Brooks Oxalates, Urine 24hr 24 mg/24 hr Normal 7-[address] [facility] Comment on above: Performed By: #### O [id number] #### [facility] [address] [place] [address] Dr. Suzie Brooks MAGNESIUM 24HR URINEon 02-02 -2021 Magnesium 24hr Urine 77.4 mg/24 hr Normal 12.0-293.0 [facility] Comment on above: Performed By: #### M AG24 #### [facility] [address] [place] [address] Dr. Suzie Brooks Magnesium UR 3.6 mg/dL Normal Not Estab. [facility] Comment on above: Performed By: #### M AG24 #### [facility] [address] [place] [address] Dr. Suzie Brooks PHOSPHORUS 24HR URINEon 01-10 Phosphorus, Urine 44.1 mg/dL Normal Not Estab. The [facility] Comment on above: Performed By: #### U DINA, LIPID, TSH, BNP, CMP, T7 #### [facility] [address] [place] [address] Dr. Suzie Brooks Phosphorus, Urine 24hr 948 mg/24 hr Normal 390-[address] [facility] Comment on above: Performed By: #### U DINA, LIPID, TSH, BNP, CMP, T7 #### [facility] [address] [place] [address] Dr. Suzie Brooks URIC ACID 24 HR URINEon 01-10 Uric Acid, Urine 35.4 mg/dL Normal Not Estab. The [facility] Comment on above: Performed By: #### U DINA, LIPID, TSH, BNP, CMP, T7 #### [facility] [address] [place] [address] Dr. Suzie Brooks Uric Acid, Urine 24hr 761.1 mg/24 hr Normal 182.4-936.[address] [facility] Comment on above: Performed By: #### U DINA, LIPID, TSH, BNP, CMP, T7 #### [facility] [address] [address] [address] Suzie Brooks CALCIUM 24 HR URINEon 2021 CALC, 24 HR UR 187.0 mg/24 hr Normal 100.0-300.0 [facility] Comment on above: Performed By: #### U DINA, LIPID, TSH, BNP, CMP, T7 #### [facility] [address] [place] [address] Dr. Suzie Brooks UR CALCIUM 8.7 mg/dL Normal 5.1-21.[address] [facility] Comment on above: Performed By: #### U DINA, LIPID, TSH, BNP, CMP, T7 #### [facility] [address] [place] [address] Dr. Suzie Brooks UR TOT VOL 2150 ml/24 HR Normal [facility] Comment on above: Performed By: #### U DINA, LIPID, TSH, BNP, CMP, T7 #### [facility] [address] [place] [address] Dr. Suzie Brooks CREA 24 HR URINEon 2 CREA, 24 HR UR 1983.59 mg/24 hr Normal 1,000.00- 2,[address] [facility] Comment on above: Performed By: #### U DINA, LIPID, TSH, BNP, CMP, T7 #### [facility] [address] [place] [address] Dr. Suzie Brooks URINE CREAT 92.26 mg/dL Normal 20.00-300.00 [facility] Comment on above: Performed By: #### U DINA, LIPID, TSH, BNP, CMP, T7 #### [facility] [address] [place] [address] Dr. Suzie Brooks SODIUM 24 HR URINEon 02-01-2 022 NA, 24 HR UR 172 mmol/24 hr Normal 40-220 [facility] Comment on above: Performed By: #### U DINA, LIPID, TSH, BNP, CMP, T7 #### [facility] [address] [place] [address] Dr. Suzie Brooks Sodium (U) [Moles/Vol] 80 mmol/L Normal 30-[address] [facility] Comment on above: Performed By: #### U DINA, LIPID, TSH, BNP, CMP, T7 #### [facility] [address] [place] [address] Dr. Suzie Brooks PTH INTACTon 01-31-2022 PTH, Intact 24 pg/mL Normal 15-65 [facility] Comment on above: Performed By: #### U DINA, LIPID, TSH, BNP, CMP, T7 #### [facility] [address] [place] [address] Dr. Suzie Brooks BUNon 01-30-2022 Urea nitrogen [Mass/Vol] 12.0 mg/dL Normal 7.0-18.[address] [facility] Comment on above: Performed By: #### U DINA, LIPID, TSH, BNP, CMP, T7 #### [facility] [address] [place] [address] Dr. Suzie Brooks CALCIUMon 01-30-2022 Calcium [Mass/Vol] 8.6 mg/dL Normal 8.5-10.1 [facility] Comment on above: Performed By: #### U DINA, LIPID, TSH, BNP, CMP, T7 #### [facility] [address] [place] [address] Dr. Suzie Brooks CHLORIDEon 01-30-2022 Chloride [Moles/Vol] 104 mmol/L Normal 98-107 [facility] Comment on above: Performed By: #### U DINA, LIPID, TSH, BNP, CMP, T7 #### [facility] [address] [place] [address] Dr. Suzie Brooks CO2on 01-30-2022 CO2 [Moles/Vol] 29.3 mmol/L Normal 21.0-32.0 [facility] Comment on above: Performed By: #### U DINA, LIPID, TSH, BNP, CMP, T7 #### [facility] [address] [place] [address] Dr. Suzie Brooks CREATININEon 01-30-2022 Creatinine [Mass/Vol] 0.92 mg/dL Normal 0.70-1.30 [facility] Comment on above: Performed By: #### U DINA, LIPID, TSH, BNP, CMP, T7 #### [facility] [address] [address] [address] Suzie Brooks EGFR-AF MOSOTHO >60 Normal >=60 [facility] Comment on above: Performed By: #### U DINA, LIPID, TSH, BNP, CMP, T7 #### [facility] [address] [address] [address] Suzie Brooks EGFR-NON AF MOSOTHO >60 Normal >=[address] [facility] Comment on above: Performed By: #### U DINA, LIPID, TSH, BNP, CMP, T7 #### [facility] [address] [place] [address] Dr. Suzie Brooks NAon 01-30-2022 Sodium [Moles/Vol] 140 mmol/L Normal 136-145 [facility] Comment on above: Performed By: #### U DINA, LIPID, TSH, BNP, CMP, T7 #### [facility] [address] [address] [address] Suzie Brooks POTASSIUMon 01-30-2022 Potassium [Moles/Vol] 4.0 mmol/L Normal 3.5-5.[address] [facility] Comment on above: Performed By: #### U DINA, LIPID, TSH, BNP, CMP, T7 #### [facility] [address] [address] [address] Suzie Brooks URIC ACID SERUMon 01-30-2022 Urate [Mass/Vol] 5.2 mg/dL Normal 3.5-7.2 [facility] Comment on above: Performed By: #### U DINA, LIPID, TSH, BNP, CMP, T7 #### [facility] [address] [address] [address] Suzie Brooks US KIDNEYSon 12-18-2021 US [...] CARRASQUILLO Date: 2021-12-18 09:[address] [facility] XR KUB 1 VIEWon 11-21-2021 XR [...] by: BEHZAD CARRASQUILLO Date: 2021-11-21 09:45 Normal [facility] COVID-19 Positive/NegativeOr dered By: Micki Zeng on 11-13-2021 SARS-CoV-2 (COVID-19) N gene SUKHJINDER+probe Ql (Resp) Negative Negative [facility] Comment on above: Testing for SARS-CoV -2 by RT-PCRThis test was developed and its performance characteristics determined by [employer] and validated at the [facility]. This test has not been FDA [...] URINARYon 2 2,8 Dihydroxyadenine Normal [facility] Comment on above: Performed By: #### U DINA, LIPID, TSH, BNP, CMP, T7 #### [facility] [address] [address] [address] Suzie Brooks Ammonium Acid Urate Normal [facility] Comment on above: Performed By: #### U DINA, LIPID, TSH, BNP, CMP, T7 #### [facility] [address] [address] [address] Suzie Brooks Bilirubin Ql (U) Normal [facility] Comment on above: Performed By: #### U DINA, LIPID, TSH, BNP, CMP, T7 #### [facility] [address] [address] [address] Suzie Brooks Ca Oxalate Dihydrate Normal [facility] Comment on above: Performed By: #### U DINA, LIPID, TSH, BNP, CMP, T7 #### [facility] [address] [address] [address] Suzie Brooks CaHPO4 (Brushite) [facility] Comment on above: Performed By: #### U DINA, LIPID, TSH, BNP, CMP, T7 #### [facility] [address] [address] [address] Suzie Brooks Calcium Bilirubinate Normal [facility] Comment on above: Performed By: #### U DINA, LIPID, TSH, BNP, CMP, T7 #### [facility] [address] [address] [address] Suzie Brooks Calcium Carbonate Normal [facility] Comment on above: Performed By: #### U DINA, LIPID, TSH, BNP, CMP, T7 #### [facility] [address] [address] [address] Suzie Brooks Calcium Oxalate Monohydrate 70 % Normal [facility] Comment on above: Performed By: #### U DINA, LIPID, TSH, BNP, CMP, T7 #### [facility] [address] [address] [address] Suzie Brooks Calcium Palmitate Normal [facility] Comment on above: Performed By: #### U DINA, LIPID, TSH, BNP, CMP, T7 #### [facility] [address] [address] [address] Suzie Brooks Calcium Phosphate Normal [facility] Comment on above: Performed By: #### U DINA, LIPID, TSH, BNP, CMP, T7 #### [facility] [address] [address] [address] Suzie Brooks Calcium Stearate Normal [facility] Comment on above: Performed By: #### U DINA, LIPID, TSH, BNP, CMP, T7 #### [facility] [address] [address] [address] Suzie Brooks Carbonate Apatite Normal [facility] Comment on above: Performed By: #### U DINA, LIPID, TSH, BNP, CMP, T7 #### [facility] [address] [address] [address] Suzie Brooks Cellular Material Normal [facility] Comment on above: Performed By: #### U DINA, LIPID, TSH, BNP, CMP, T7 #### [facility] [address] [address] [address] Suzie Brooks Cholesterol Normal [facility] Comment on above: Performed By: #### U DINA, LIPID, TSH, BNP, CMP, T7 #### [facility] [address] [address] [address] Suzie Brooks Color (U) Brown Normal [facility] Comment on above: Performed By: #### U DINA, LIPID, TSH, BNP, CMP, T7 #### [facility] [address] [address] [address] Suzie Brooks Comment [facility] Comment on above: Performed By: #### U DINA, LIPID, TSH, BNP, CMP, T7 #### [facility] [address] [address] [address] Suzie Brooks Comment: Comment Normal [facility] Comment on above: Result Comment: Fantasma baez questions regarding Calculi Analysis contact [facility] at: [phone]. Performed By: #### U DINA, LIPID, TSH, BNP, CMP, T7 #### [facility] [address] [address] [address] Suzie Brooks Composition Comment [facility] Comment on above: Result Comment: Perc entage (Represents the % composition) Performed By: #### U DINA, LIPID, TSH, BNP, CMP, T7 #### [facility] [address] [address] [address] Suzie Brooks Cystine Normal [facility] Comment on above: Performed By: #### U DINA, LIPID, TSH, BNP, CMP, T7 #### [facility] [address] [address] [address] Suzie Brooks Disclaimer: Comment [facility] Comment on above: Result Comment: This test was developed and its performance characteristics determined by [facility]. It has not been cleared or approved by the Food and Drug Administration. Performed By: #### U DINA, LIPID, TSH, BNP, CMP, T7 #### [facility] [address] [address] [address] Suzie Brooks Dried Blood Normal [facility] Comment on above: Performed By: #### U DINA, LIPID, TSH, BNP, CMP, T7 #### [facility] [address] [address] [address] Suzie Brooks Drug or Metabolite Normal [facility] Comment on above: Performed By: #### U DINA, LIPID, TSH, BNP, CMP, T7 #### [facility] [address] [address] [address] Suzie Brooks Hydroxyapatite Normal [facility] Comment on above: Performed By: #### U DINA, LIPID, TSH, BNP, CMP, T7 #### [facility] [address] [address] [address] Suzie Brooks Mg NH4 PO4 (Struvite) Normal [facility] Comment on above: Performed By: #### U DINA, LIPID, TSH, BNP, CMP, T7 #### [facility] [address] [address] [address] Suzie Brooks MgHPO4 (Newberyite) Normal [facility] Comment on above: Performed By: #### U DINA, LIPID, TSH, BNP, CMP, T7 #### [facility] [address] [address] [address] Suzie Brooks Other component(s) Normal [facility] Comment on above: Performed By: #### U DINA, LIPID, TSH, BNP, CMP, T7 #### [facility] [address] [address] [address] Suzie Brooks PDF . Normal [facility] Comment on above: Performed By: #### U DINA, LIPID, TSH, BNP, CMP, T7 #### [facility] [address] [address] [address] Suzie Brooks Photo Comment [facility] Comment on above: Result Comment: Phot ograph will follow under a separate cover Performed By: #### U DINA, LIPID, TSH, BNP, CMP, T7 #### [facility] [address] [address] [address] Suzie Brooks Please note: Comment Normal [facility] Comment on above: Result Comment: Calc shamika report will follow via computer, mail or name plate stamper delivery. Performed By: #### U DINA, LIPID, TSH, BNP, CMP, T7 #### [facility] [address] [address] [address] Suzie Brooks Size 3x2 [facility] Comment on above: Result Comment: Mult iple pieces received. Dimensions of the largest piece reported. Performed By: #### U DINA, LIPID, TSH, BNP, CMP, T7 #### [facility] [address] [address] [address] Suzie Brooks Sodium Acid Urate Normal [facility] Comment on above: Performed By: #### U DINA, LIPID, TSH, BNP, CMP, T7 #### [facility] [address] [address] [address] Suzie Brooks Source Comment Normal [facility] Comment on above: Result Comment: Righ t Ureter Performed By: #### U DINA, LIPID, TSH, BNP, CMP, T7 #### [facility] [address] [address] [address] Suzie Brooks Triamterene Normal [facility] Comment on above: Performed By: #### U DINA, LIPID, TSH, BNP, CMP, T7 #### [facility] [address] [address] [address] Suzie Brooks Uric Acid 30 % [facility] Comment on above: Performed By: #### U DINA, LIPID, TSH, BNP, CMP, T7 #### [facility] [address] [address] [address] Suzie Brooks Uric Acid Dihydrate Normal [facility] Comment on above: Performed By: #### U DINA, LIPID, TSH, BNP, CMP, T7 #### [facility] [address] [address] [address] Suzie Brooks Weight 12 mg [facility] Comment on above: Performed By: #### U DINA, LIPID, TSH, BNP, CMP, T7 #### [facility] [address] [address] [address] Suzie Brooks Xanthine [facility] Comment on above: Performed By: #### U DINA, LIPID, TSH, BNP, CMP, T7 #### [facility] [address] [address] [address] Suzie Brooks XR KUB 1 VIEWon [...] by: RAFAEL GRAVES Date: 2021-11-12 13:18 Normal [facility] XR CHEST 2 Von 11-08-2021 [...] CARLOS GROSS Date: 2021-11-08 15:50 Normal [facility] CBC AUTO DIFFon 11-07-2021 BASO # 0.0 103/ul Normal 0.0-0.1 [facility] Comment on above: Performed By: #### U DINA, LIPID, TSH, BNP, CMP, T7 #### [facility] [address] [address] [address] Suzie Brooks Basophils/100 WBC (Bld) 0.2 % Normal 0.2-2.[address] [facility] Comment on above: Performed By: #### U DINA, LIPID, TSH, BNP, CMP, T7 #### [facility] [address] [address] [address] Suzie Brooks EO # 0.0 103/ul Normal 0.0-0.7 [facility] Comment on above: Performed By: #### U DINA, LIPID, TSH, BNP, CMP, T7 #### [facility] [address] [address] [address] Suzie Brooks Eosinophils/100 WBC (Bld) 0.0 % Critically low 0.9-7.[address] [facility] Comment on above: Performed By: #### U DINA, LIPID, TSH, BNP, CMP, T7 #### [facility] [address] [address] [address] Suzie Brooks Erythrocyte distribution width (RBC) [Ratio] 14.0 % Normal 11.0-15.[address] [facility] Comment on above: Performed By: #### U DINA, LIPID, TSH, BNP, CMP, T7 #### [facility] [address] [place] [address] Dr. Suzie Brooks Hematocrit (Bld) [Volume fraction] 41.8 % Critically low 42.0-54.[address] [facility] Comment on above: Performed By: #### U DINA, LIPID, TSH, BNP, CMP, T7 #### [facility] [address] [place] [address] Dr. Suzie Brooks Hemoglobin (Bld) [Mass/Vol] 13.7 g/dL Critically low 14.0-18.[address] [facility] Comment on above: Performed By: #### U DINA, LIPID, TSH, BNP, CMP, T7 #### [facility] [address] [place] [address] Dr. Suzie Brooks IG # 0.14 10e3/ul Critically high 0.00-0.03 [facility] Comment on above: Performed By: #### U DINA, LIPID, TSH, BNP, CMP, T7 #### [facility] [address] [place] [address] Dr. Suzie Brooks IG % 0.9 % Critically high 0.0-0.5 [facility] Comment on above: Performed By: #### U DINA, LIPID, TSH, BNP, CMP, T7 #### [facility] [address] [place] [address] Dr. Suzie Brooks LYMPH # 1.6 103/ul Normal 1.2-3.[address] [facility] Comment on above: Performed By: #### U DINA, LIPID, TSH, BNP, CMP, T7 #### [facility] [address] [place] [address] Dr. Suzie Brooks Lymphocytes/100 WBC (Bld) 10.2 % Critically low 20.5-60.[address] [facility] Comment on above: Performed By: #### U DINA, LIPID, TSH, BNP, CMP, T7 #### [facility] [address] [place] [address] Dr. Suzie Brooks MANUAL DIFF REQ NO Normal [facility] Comment on above: Performed By: #### U DINA, LIPID, TSH, BNP, CMP, T7 #### [facility] [address] [place] [address] Dr. Suzie Brooks MCH (RBC) [Entitic mass] 28.8 pg Normal 25.9-34.0 [facility] Comment on above: Performed By: #### U DINA, LIPID, TSH, BNP, CMP, T7 #### [facility] [address] [place] [address] Dr. Suzie Brooks MCHC (RBC) [Mass/Vol] 32.8 g/dL Normal 29.9-35.2 [facility] Comment on above: Performed By: #### U DINA, LIPID, TSH, BNP, CMP, T7 #### [facility] [address] [place] [address] Dr. Suzie Brooks MCV (RBC) [Entitic vol] 87.8 fL Normal 80.0-94.[address] [facility] Comment on above: Performed By: #### U DINA, LIPID, TSH, BNP, CMP, T7 #### [facility] [address] [place] [address] Dr. Suzie Brooks MONO # 1.0 103/ul Critically high 0.3-0.8 [facility] Comment on above: Performed By: #### U DINA, LIPID, TSH, BNP, CMP, T7 #### [facility] [address] [place] [address] Dr. Suzie Brooks Monocytes/100 WBC (Bld) 6.6 % Normal 1.7-12.[address] [facility] Comment on above: Performed By: #### U DINA, LIPID, TSH, BNP, CMP, T7 #### [facility] [address] [place] [address] Dr. Suzie Brooks NEUT # 13.0 103/ul Critically high 1.4-6.5 [facility] Comment on above: Performed By: #### U DINA, LIPID, TSH, BNP, CMP, T7 #### [facility] [address] [place] [address] Dr. Suzie Brooks Neutrophils/100 WBC (Bld) 82.1 % Critically high 43.0-75.[address] [facility] Comment on above: Performed By: #### U DINA, LIPID, TSH, BNP, CMP, T7 #### [facility] [address] [address] [address] Suzie Brooks Platelet mean volume (Bld) [Entitic vol] 9.3 fL Critically low 9.5-13.[address] [facility] Comment on above: Performed By: #### U DINA, LIPID, TSH, BNP, CMP, T7 #### [facility] [address] [address] [address] Suzie Brooks PLT 301 103/ul Normal 150-[address] [facility] Comment on above: Performed By: #### U DINA, LIPID, TSH, BNP, CMP, T7 #### [facility] [address] [place] [address] Dr. Suzie Brooks RBC 4.76 106/ul Normal 4.70-6.[address] [facility] Comment on above: Performed By: #### U DINA, LIPID, TSH, BNP, CMP, T7 #### [facility] [address] [place] [address] Dr. Suzie Brooks WBC 15.9 103/ul Critically high 4.0-11.0 [facility] Comment on above: Performed By: #### U DINA, LIPID, TSH, BNP, CMP, T7 #### [facility] [address] [place] [address] Dr. Suzie Brooks POINT OF CARE GLUCOSEon 10-11 Glucose [Mass/Vol] 128 mg/dL Critically high 74-106 [facility] Comment on above: Performed By: #### U DINA, LIPID, TSH, BNP, CMP, T7 #### [facility] [address] [place] [address] Dr. Suzie Brooks PROF 14(COMP METB)on 022 Albumin [Mass/Vol] 3.1 g/dL Critically low 3.4-5.0 [facility] Comment on above: Performed By: #### M AG24 #### [facility] [address] [place] [address] Dr. Suzie Brooks Albumin/Globulin [Mass ratio] 0.9 {ratio} Normal [facility] Comment on above: Performed By: #### M AG24 #### [facility] [address] [place] [address] Dr. Suzie Brooks ALP [Catalytic activity/Vol] 52 U/L Normal 46-[address] [facility] Comment on above: Performed By: #### M AG24 #### [facility] [address] [place] [address] Dr. Suzie Brooks ALT [Catalytic activity/Vol] 39 U/L Normal 16-[address] [facility] Comment on above: Performed By: #### M AG24 #### [facility] [address] [place] [address] Dr. Suzie Brooks Anion gap [Moles/Vol] 14.7 mmol/L Normal [facility] Comment on above: Performed By: #### M AG24 #### [facility] [address] [place] [address] Dr. Suzie Brooks AST [Catalytic activity/Vol] 27 U/L Normal 15-[address] [facility] Comment on above: Performed By: #### M AG24 #### [facility] [address] [place] [address] Dr. Suzie Brooks Bilirubin [Mass/Vol] 0.4 mg/dL Normal 0.2-1.[address] [facility] Comment on above: Performed By: #### M AG24 #### [facility] [address] [place] [address] Dr. Suzie Brooks Calcium [Mass/Vol] 7.7 mg/dL Critically low 8.5-10.1 [facility] Comment on above: Performed By: #### M AG24 #### [facility] [address] [place] [address] Dr. Suzie Brooks Chloride [Moles/Vol] 104 mmol/L Normal 98-[address] [facility] Comment on above: Performed By: #### M AG24 #### [facility] [address] [place] [address] Dr. Suzie Brooks CO2 [Moles/Vol] 23.4 mmol/L Normal 22.0-30.0 [facility] Comment on above: Performed By: #### M AG24 #### [facility] [address] [place] [address] Dr. Suzie Brooks Creatinine [Mass/Vol] 1.03 mg/dL Normal 0.66-1.[address] [facility] Comment on above: Performed By: #### M AG24 #### [facility] [address] [address] [address] Suzie Brooks EGFR-AF MOSOTHO >60 Normal >=60 [facility] Comment on above: Performed By: #### M AG24 #### [facility] [address] [place] [address] Dr. Suzie Brooks EGFR-NON AF MOSOTHO >60 Normal >=[address] [facility] Comment on above: Performed By: #### M AG24 #### [facility] [address] [place] [address] Dr. Suzie Brooks Globulin (S) [Mass/Vol] 3.5 g/dL Normal [facility] Comment on above: Performed By: #### M AG24 #### [facility] [address] [place] [address] Dr. Suzie Brooks Glucose [Mass/Vol] 142 mg/dL Critically high 74-106 [facility] Comment on above: Performed By: #### M AG24 #### [facility] [address] [place] [address] Dr. Suzie Brooks Potassium [Moles/Vol] 4.1 mmol/L Normal 3.4-5.[address] [facility] Comment on above: Performed By: #### M AG24 #### [facility] [address] [place] [address] Dr. Suzie Brooks Protein [Mass/Vol] 6.6 g/dL Normal 6.1-8.2 [facility] Comment on above: Performed By: #### M AG24 #### [facility] [address] [place] [address] Dr. Suzie Brooks Sodium [Moles/Vol] 138 mmol/L Normal 137-145 [facility] Comment on above: Performed By: #### M AG24 #### [facility] [address] [place] [address] Dr. Suzie Brooks Urea nitrogen [Mass/Vol] 15.0 mg/dL Normal 7.0-18.[address] [facility] Comment on above: Performed By: #### M AG24 #### [facility] [address] [place] [address] Dr. Suzie Brooks Urea nitrogen/Creatinine [Mass ratio] 14.6 mg/mg Normal [facility] Comment on above: Performed By: #### M AG24 #### [facility] [address] [place] [address] Dr. Suzie Brooks CBC AUTO DIFFon 11-06-2021 BASO # 0.1 103/ul Normal 0.0-0.[address] [facility] Comment on above: Performed By: #### U DINA, LIPID, TSH, BNP, CMP, T7 #### [facility] [address] [place] [address] Dr. Suzie Brooks Basophils/100 WBC (Bld) 0.5 % Normal 0.2-2.[address] [facility] Comment on above: Performed By: #### U DINA, LIPID, TSH, BNP, CMP, T7 #### [facility] [address] [place] [address] Dr. Suzie Brooks EO # 0.3 103/ul Normal 0.0-0.[address] [facility] Comment on above: Performed By: #### U DINA, LIPID, TSH, BNP, CMP, T7 #### [facility] [address] [place] [address] Dr. Suzie Brooks Eosinophils/100 WBC (Bld) 2.1 % Normal 0.9-7.[address] [facility] Comment on above: Performed By: #### U DINA, LIPID, TSH, BNP, CMP, T7 #### [facility] [address] [place] [address] Dr. Suzie Brooks Erythrocyte distribution width (RBC) [Ratio] 13.8 % Normal 11.0-15.[address] [facility] Comment on above: Performed By: #### U DINA, LIPID, TSH, BNP, CMP, T7 #### [facility] [address] [place] [address] Dr. Suzie Brooks Hematocrit (Bld) [Volume fraction] 46.9 % Normal 42.0-54.[address] [facility] Comment on above: Performed By: #### U DINA, LIPID, TSH, BNP, CMP, T7 #### [facility] [address] [place] [address] Dr. Suzie Brooks Hemoglobin (Bld) [Mass/Vol] 15.4 g/dL Normal 14.0-18.[address] [facility] Comment on above: Performed By: #### U DINA, LIPID, TSH, BNP, CMP, T7 #### [facility] [address] [place] [address] Dr. Suzie Brooks IG # 0.05 10e3/ul Critically high 0.00-0.03 [facility] Comment on above: Performed By: #### U DINA, LIPID, TSH, BNP, CMP, T7 #### [facility] [address] [place] [address] Dr. Suzie Brooks IG % 0.4 % Normal 0.0-0.[address] [facility] Comment on above: Performed By: #### U DINA, LIPID, TSH, BNP, CMP, T7 #### [facility] [address] [place] [address] Dr. Suzie Brooks LYMPH # 2.8 103/ul Normal 1.2-3.8 [facility] Comment on above: Performed By: #### U DINA, LIPID, TSH, BNP, CMP, T7 #### [facility] [address] [place] [address] Dr. Suzie Brooks Lymphocytes/100 WBC (Bld) 22.5 % Normal 20.5-60.0 [facility] Comment on above: Performed By: #### U DINA, LIPID, TSH, BNP, CMP, T7 #### [facility] [address] [place] [address] Dr. Suzie Brooks MANUAL DIFF REQ NO Normal [facility] Comment on above: Performed By: #### U DINA, LIPID, TSH, BNP, CMP, T7 #### [facility] [address] [place] [address] Dr. Suzie Brooks MCH (RBC) [Entitic mass] 28.6 pg Normal 25.9-34.[address] [facility] Comment on above: Performed By: #### U DINA, LIPID, TSH, BNP, CMP, T7 #### [facility] [address] [place] [address] Dr. Suzie Brooks MCHC (RBC) [Mass/Vol] 32.8 g/dL Normal 29.9-35.2 [facility] Comment on above: Performed By: #### U DINA, LIPID, TSH, BNP, CMP, T7 #### [facility] [address] [place] [address] Dr. Suzie Brooks MCV (RBC) [Entitic vol] 87.0 fL Normal 80.0-94.[address] [facility] Comment on above: Performed By: #### U DINA, LIPID, TSH, BNP, CMP, T7 #### [facility] [address] [place] [address] Dr. Suzie Brooks MONO # 0.9 103/ul Critically high 0.3-0.8 [facility] Comment on above: Performed By: #### U DINA, LIPID, TSH, BNP, CMP, T7 #### [facility] [address] [place] [address] Dr. Suzie Brooks Monocytes/100 WBC (Bld) 6.9 % Normal 1.7-12.0 [facility] Comment on above: Performed By: #### U DINA, LIPID, TSH, BNP, CMP, T7 #### [facility] [address] [place] [address] Dr. Suzie Brooks NEUT # 8.4 103/ul Critically high 1.4-6.5 [facility] Comment on above: Performed By: #### U DINA, LIPID, TSH, BNP, CMP, T7 #### [facility] [address] [place] [address] Dr. Suzie Brooks Neutrophils/100 WBC (Bld) 67.6 % Normal 43.0-75.0 [facility] Comment on above: Performed By: #### U DINA, LIPID, TSH, BNP, CMP, T7 #### [facility] [address] [place] [address] Dr. Suzie Brooks Platelet mean volume (Bld) [Entitic vol] 9.6 fL Normal 9.5-13.[address] [facility] Comment on above: Performed By: #### U DINA, LIPID, TSH, BNP, CMP, T7 #### [facility] [address] [place] [address] Dr. Suzie Brooks PLT 284 103/ul Normal 150-[address] [facility] Comment on above: Performed By: #### U DINA, LIPID, TSH, BNP, CMP, T7 #### [facility] [address] [place] [address] Dr. Suzie Brooks RBC 5.39 106/ul Normal 4.70-6.10 [facility] Comment on above: Performed By: #### U DINA, LIPID, TSH, BNP, CMP, T7 #### [facility] [address] [place] [address] Dr. Suzie Brooks WBC 12.5 103/ul Critically high 4.0-11.0 [facility] Comment on above: Performed By: #### U DINA, LIPID, TSH, BNP, CMP, T7 #### [facility] [address] [place] [address] Dr. Suzie Brooks CULTURE BLOODon 11-06-2021 Microscopic examination of blood, culture Culture Observations: NO GROWTH AT 5 DAYS. Normal [facility] Comment on above: Performed By: #### M AG24 #### [facility] [address] [place] [address] Dr. Suzie Brooks CULTURE URINEon 11-06-2021 CULTURE URINE Culture Observations : NO GROWTH. Normal [facility] Comment on above: Performed By: #### M AG24 #### [facility] [address] [place] [address] Dr. Suzie Brooks Covid-19 PCR (CVDTB)on 10-10 SARS-CoV-2 (COVID-19) RNA SUKHJINDER+probe Ql (Unsp spec) Not detected Normal NOT DETECTED [facility] Comment on above: Result Comment: When diagnostic testing is negative, the possibility of a false negative should be considered in the context of a patient's recent exposures and the presence of clinical signs and symptoms consistent with SARS-CoV-2. This test is not yet approved or cleared by the [place] Food and Drug Administration (FDA). This test was developed by [employer], [place], [place]. The performance characteristics of this test were validated by [facility]. The results are not intended to be used as the sole means for clinical diagnosis or patient management decisions. [facility] is authorized under Clinical Laboratory Improvement [...] for this test is supported by the [place] of Health and Human Service's declaration that [...] DINA, LIPID, TSH, BNP, CMP, T7 #### [facility] [address] [place] [address] Dr. Suzie Brooks ER URINE PROFILEon 2 Bilirubin Ql (U) Negative Normal NEGATIVE [facility] Comment on above: Performed By: #### U DINA, LIPID, TSH, BNP, CMP, T7 #### [facility] [address] [place] [address] Dr. Suzie Brooks Clarity (U) CLEAR Normal CLEAR [facility] Comment on above: Performed By: #### U DINA, LIPID, TSH, BNP, CMP, T7 #### [facility] [address] [place] [address] Dr. Szuie Brooks Color (U) YELLOW Normal YELLOW [facility] Comment on above: Performed By: #### U DINA, LIPID, TSH, BNP, CMP, T7 #### [facility] [address] [address] [address] Suzie ESTEBAN A micrscopic examina tion will be performed if indicated. Normal [facility] Comment on above: Performed By: #### U DINA, LIPID, TSH, BNP, CMP, T7 #### [facility] [address] [address] [address] Suzie Brooks Glucose Ql (U) Negative Normal NEGATIVE [facility] Comment on above: Performed By: #### U DINA, LIPID, TSH, BNP, CMP, T7 #### [facility] [address] [address] [address] Suzie Brooks Hemoglobin Ql (U) LARGE Abnormal NEGATIVE [facility] Comment on above: Performed By: #### U DINA, LIPID, TSH, BNP, CMP, T7 #### [facility] [address] [place] [address] Dr. Suzie Brooks Ketones Ql (U) Negative Normal NEGATIVE [facility] Comment on above: Performed By: #### U DINA, LIPID, TSH, BNP, CMP, T7 #### [facility] [address] [address] [address] Suzie Brooks LEUKOCYTES TRACE Abnormal NEGATIVE [facility] Comment on above: Performed By: #### U DINA, LIPID, TSH, BNP, CMP, T7 #### [facility] [address] [address] [address] Suzie Brooks Nitrite Ql (U) Negative Normal NEGATIVE [facility] Comment on above: Performed By: #### U DINA, LIPID, TSH, BNP, CMP, T7 #### [facility] [address] [address] [address] Suzie Brooks pH (U) 5.0 [pH] Normal 5-9 [facility] Comment on above: Performed By: #### U DINA, LIPID, TSH, BNP, CMP, T7 #### [facility] [address] [address] [address] Suzie Brooks Protein (U) [Mass/Vol] 100 mg/dL Abnormal NEGATIVE/ TRACE [facility] Comment on above: Performed By: #### U DINA, LIPID, TSH, BNP, CMP, T7 #### [facility] [address] [address] [address] Suzie Brooks SPEC GRAVITY 1.030 Abnormal 1.005-<=1.[address] [facility] Comment on above: Performed By: #### U DINA, LIPID, TSH, BNP, CMP, T7 #### [facility] [address] [address] [address] Suzie Brooks UR MICRO IND INDICATED Normal [facility] Comment on above: Performed By: #### U DINA, LIPID, TSH, BNP, CMP, T7 #### [facility] [address] [address] [address] Suzie Brooks Urobilinogen Qn (U) 0.2 {Behzad'U}/dL Normal 0.2 - 1. [address] [facility] Comment on above: Performed By: #### U DINA, LIPID, TSH, BNP, CMP, T7 #### [facility] [address] [place] [address] Dr. Suzie Brooks LACTATE/LACTIC ACIDon 2021 Lactate [Moles/Vol] 1.0 mmol/L Normal 0.7-2.0 [facility] Comment on above: Performed By: #### U DINA, LIPID, TSH, BNP, CMP, T7 #### [facility] [address] [address] [address] Suzie Brooks PROF 14(COMP METB)on 022 Albumin [Mass/Vol] 3.8 g/dL Normal 3.4-5.0 [facility] Comment on above: Performed By: #### U DINA, LIPID, TSH, BNP, CMP, T7 #### [facility] [address] [address] [address] Suzie Brooks Albumin/Globulin [Mass ratio] 1.0 {ratio} Normal [facility] Comment on above: Performed By: #### U DINA, LIPID, TSH, BNP, CMP, T7 #### [facility] [address] [address] [address] Suzie Brooks ALP [Catalytic activity/Vol] 66 U/L Normal 46-116 [facility] Comment on above: Performed By: #### U DINA, LIPID, TSH, BNP, CMP, T7 #### [facility] [address] [address] [address] Suzie Brooks ALT [Catalytic activity/Vol] 52 U/L Normal 16-[address] [facility] [facility] Comment on above: Performed By: #### U DINA, LIPID, TSH, BNP, CMP, T7 #### [facility] [address] [address] [address] Suzie Brooks Anion gap [Moles/Vol] 14.7 mmol/L Normal [facility] Comment on above: Performed By: #### U DINA, LIPID, TSH, BNP, CMP, T7 #### [facility] [address] [place] [address] Dr. Suzie Brooks AST [Catalytic activity/Vol] 40 U/L Critically high 15-[address] [facility] Comment on above: Performed By: #### U DINA, LIPID, TSH, BNP, CMP, T7 #### [facility] [address] [place] [address] Dr. Suzie Brooks Bilirubin [Mass/Vol] 0.6 mg/dL Normal 0.2-1.[address] [facility] Comment on above: Performed By: #### U DINA, LIPID, TSH, BNP, CMP, T7 #### [facility] [address] [place] [address] Dr. Suzie Brooks Calcium [Mass/Vol] 8.2 mg/dL Critically low 8.5-10.1 [facility] Comment on above: Performed By: #### U DINA, LIPID, TSH, BNP, CMP, T7 #### [facility] [address] [place] [address] Dr. Suzie Brooks Chloride [Moles/Vol] 102 mmol/L Normal 98-107 [facility] Comment on above: Performed By: #### U DINA, LIPID, TSH, BNP, CMP, T7 #### [facility] [address] [place] [address] Dr. Suzie Brooks CO2 [Moles/Vol] 27.4 mmol/L Normal 22.0-30.0 [facility] Comment on above: Performed By: #### U DINA, LIPID, TSH, BNP, CMP, T7 #### [facility] [address] [address] [address] Suzie Brooks Creatinine [Mass/Vol] 1.05 mg/dL Normal 0.66-1.[address] [facility] Comment on above: Performed By: #### U DINA, LIPID, TSH, BNP, CMP, T7 #### [facility] [address] [place] [address] Dr. Suzie Brooks EGFR-AF MOSOTHO >60 Normal >=60 [facility] Comment on above: Performed By: #### U DINA, LIPID, TSH, BNP, CMP, T7 #### [facility] [address] [place] [address] Dr. Suzie Brooks EGFR-NON AF MOSOTHO >60 Normal >=[address] [facility] Comment on above: Performed By: #### U DINA, LIPID, TSH, BNP, CMP, T7 #### [facility] [address] [place] [address] Dr. Suzie Brooks Globulin (S) [Mass/Vol] 3.7 g/dL Normal [facility] Comment on above: Performed By: #### U DINA, LIPID, TSH, BNP, CMP, T7 #### [facility] [address] [place] [address] Dr. Suzie Brooks Glucose [Mass/Vol] 124 mg/dL Critically high 74-106 [facility] Comment on above: Performed By: #### U DINA, LIPID, TSH, BNP, CMP, T7 #### [facility] [address] [place] [address] Dr. Suzie Brooks Potassium [Moles/Vol] 4.1 mmol/L Normal 3.4-5.[address] [facility] Comment on above: Performed By: #### U DINA, LIPID, TSH, BNP, CMP, T7 #### [facility] [address] [place] [address] Dr. Suzie Brooks Protein [Mass/Vol] 7.5 g/dL Normal 6.1-8.2 [facility] Comment on above: Performed By: #### U DINA, LIPID, TSH, BNP, CMP, T7 #### [facility] [address] [address] [address] Suzie Brooks Sodium [Moles/Vol] 140 mmol/L Normal 137-145 [facility] Comment on above: Performed By: #### U DINA, LIPID, TSH, BNP, CMP, T7 #### [facility] [address] [place] [address] Dr. Suzie Brooks Urea nitrogen [Mass/Vol] 16.0 mg/dL Normal 7.0-18.[address] [facility] Comment on above: Performed By: #### U DINA, LIPID, TSH, BNP, CMP, T7 #### [facility] [address] [place] [address] Dr. Suzie Brooks Urea nitrogen/Creatinine [Mass ratio] 15.2 mg/mg Normal [facility] Comment on above: Performed By: #### U DINA, LIPID, TSH, BNP, CMP, T7 #### [facility] [address] [place] [address] Dr. Suzie Brooks URINE MICROSCOPIC ONLYon BACTERIA SMALL Abnormal NONE SEEN [facility] Comment on above: Performed By: #### U DINA, LIPID, TSH, BNP, CMP, T7 #### [facility] [address] [place] [address] Dr. Suzie Brooks Bacteria identified Cx Nom (U) INDICATED Normal [facility] Comment on above: Performed By: #### U DINA, LIPID, TSH, BNP, CMP, T7 #### [facility] [address] [place] [address] Dr. Suzie Brooks CAST NONE SEEN Normal NONE SEEN [facility] Comment on above: Performed By: #### U DINA, LIPID, TSH, BNP, CMP, T7 #### [facility] [address] [place] [address] Dr. Suzie Brooks Crystals LM Nom (Urine sed) NONE SEEN Normal NONE SEEN [facility] Comment on above: Performed By: #### U DINA, LIPID, TSH, BNP, CMP, T7 #### [facility] [address] [place] [address] Dr. Suzie Brooks Epithelial cells LM Ql (Urine sed) RARE Normal NONE SEEN /RARE [facility] Comment on above: Performed By: #### U DINA, LIPID, TSH, BNP, CMP, T7 #### [facility] [address] [place], [place] [address] Dr. Suzie Brooks MUCOUS NONE SEEN Normal NONE SEEN [facility] Comment on above: Performed By: #### U DINA, LIPID, TSH, BNP, CMP, T7 #### [facility] [address] [address] [address] Suzie Brooks RBC 50-75 Abnormal 0-[address] [facility] Comment on above: Performed By: #### U DINA, LIPID, TSH, BNP, CMP, T7 #### [facility] [address] [address] [address] Suzie Brooks WBC 20-50 Abnormal NONE SEEN [facility] Comment on above: Performed By: #### U DINA, LIPID, TSH, BNP, CMP, T7 #### [facility] [address] [address] [address] Suzie Brooks XR KUB 1 VIEWon [...] BEHZAD SANTOS Date: 2021-11-06 21:58 Normal [facility] XR KUB 1 VIEW EXAMINATION: XR [...] RAFAEL GRAVES Date: 2021-11-06 08:06 Normal [facility] CBC AUTO DIFFon 11-05-2021 BASO # 0.1 103/ul Normal 0.0-0.1 [facility] Comment on above: Performed By: #### U DINA, LIPID, TSH, BNP, CMP, T7 #### [facility] [address] [place] [address] Dr. Suzie Brooks Basophils/100 WBC (Bld) 0.6 % Normal 0.2-2.0 [facility] Comment on above: Performed By: #### U DINA, LIPID, TSH, BNP, CMP, T7 #### [facility] [address] [place] [address] Dr. Suzie Brooks EO # 0.3 103/ul Normal 0.0-0.7 [facility] Comment on above: Performed By: #### U DINA, LIPID, TSH, BNP, CMP, T7 #### [facility] [address] [place] [address] Dr. Suzie Brooks Eosinophils/100 WBC (Bld) 2.2 % Normal 0.9-7.0 [facility] Comment on above: Performed By: #### U DINA, LIPID, TSH, BNP, CMP, T7 #### [facility] [address] [place] [address] Dr. Suzie Brooks Erythrocyte distribution width (RBC) [Ratio] 13.7 % Normal 11.0-15.0 [facility] Comment on above: Performed By: #### U DINA, LIPID, TSH, BNP, CMP, T7 #### [facility] [address] [place] [address] Dr. uSzie Brooks Hematocrit (Bld) [Volume fraction] 49.0 % Normal 42.0-54.0 [facility] Comment on above: Performed By: #### U DINA, LIPID, TSH, BNP, CMP, T7 #### [facility] [address] [place] [address] Dr. Suzie Brooks Hemoglobin (Bld) [Mass/Vol] 15.9 g/dL Normal 14.0-18.0 [facility] Comment on above: Performed By: #### U DINA, LIPID, TSH, BNP, CMP, T7 #### [facility] [address] [place] [address] Dr. Suzie Brooks IG # 0.07 10e3/ul Critically high 0.00-0.03 [facility] Comment on above: Performed By: #### U DINA, LIPID, TSH, BNP, CMP, T7 #### [facility] [address] [place] [address] Dr. Suzie Brooks IG % 0.5 % Normal 0.0-0.5 [facility] Comment on above: Performed By: #### U DINA, LIPID, TSH, BNP, CMP, T7 #### [facility] [address] [place] [address] Dr. Suzie Brooks LYMPH # 3.1 103/ul Normal 1.2-3.8 [facility] Comment on above: Performed By: #### U DINA, LIPID, TSH, BNP, CMP, T7 #### [facility] [address] [place] [address] Dr. Suzie Brooks Lymphocytes/100 WBC (Bld) 23.8 % Normal 20.5-60.0 [facility] Comment on above: Performed By: #### U DINA, LIPID, TSH, BNP, CMP, T7 #### [facility] [address] [place] [address] Dr. Suzie Brooks MANUAL DIFF REQ NO Normal [facility] Comment on above: Performed By: #### U DINA, LIPID, TSH, BNP, CMP, T7 #### [facility] [address] [place] [address] Dr. Suzie Brooks MCH (RBC) [Entitic mass] 28.8 pg Normal 25.9-34.0 [facility] Comment on above: Performed By: #### U DINA, LIPID, TSH, BNP, CMP, T7 #### [facility] [address] [place] [address] Dr. Suzie Brooks MCHC (RBC) [Mass/Vol] 32.4 g/dL Normal 29.9-35.2 [facility] Comment on above: Performed By: #### U DINA, LIPID, TSH, BNP, CMP, T7 #### [facility] [address] [place] [address] Dr. Suzie Brooks MCV (RBC) [Entitic vol] 88.8 fL Normal 80.0-94.0 [facility] Comment on above: Performed By: #### U DINA, LIPID, TSH, BNP, CMP, T7 #### [facility] [address] [place] [address] Dr. Suzie Brooks MONO # 0.9 103/ul Critically high 0.3-0.8 [facility] Comment on above: Performed By: #### U DINA, LIPID, TSH, BNP, CMP, T7 #### [facility] [address] [place] [address] Dr. Suzie Brooks Monocytes/100 WBC (Bld) 6.8 % Normal 1.7-12.0 [facility] Comment on above: Performed By: #### U DINA, LIPID, TSH, BNP, CMP, T7 #### [facility] [address] [place] [address] Dr. Suzie Brooks NEUT # 8.7 103/ul Critically high 1.4-6.5 [facility] Comment on above: Performed By: #### U DINA, LIPID, TSH, BNP, CMP, T7 #### [facility] [address] [place] [address] Dr. Suzie Brooks Neutrophils/100 WBC (Bld) 66.1 % Normal 43.0-75.0 [facility] Comment on above: Performed By: #### U DINA, LIPID, TSH, BNP, CMP, T7 #### [facility] [address] [place] [address] Dr. Suzie Brooks Platelet mean volume (Bld) [Entitic vol] 9.4 fL Critically low 9.5-13.5 [facility] Comment on above: Performed By: #### U DINA, LIPID, TSH, BNP, CMP, T7 #### [facility] [address] [place] [address] Dr. Suzie Brooks PLT 278 103/ul Normal 150-450 [facility] Comment on above: Performed By: #### U DINA, LIPID, TSH, BNP, CMP, T7 #### [facility] [address] [place], [place] [address] Dr. Suzie Brooks RBC 5.52 106/ul Normal 4.70-6.[address] [facility] Comment on above: Performed By: #### U DINA, LIPID, TSH, BNP, CMP, T7 #### [facility] [address] [place], [place] [address] Dr. Suzie Brooks WBC 13.1 103/ul Critically high 4.0-11.0 [facility] Comment on above: Performed By: #### U DINA, LIPID, TSH, BNP, CMP, T7 #### [facility] [address] [place], [place] [address] ABD/PELVIS WO CONon [...] RAFAEL GRAVES Date: 2021-11-05 11:46 Normal [facility] CULTURE URINEon 11-05-2021 CULTURE URINE Culture Observations : No growth Normal [facility] Comment on above: Performed By: #### M AG24 #### [facility] [address] [place] [address] Dr. Suzie Brooks ER URINE PROFILEon 2 Bilirubin Ql (U) Negative Normal NEGATIVE [facility] Comment on above: Performed By: #### C VDTBH #### [facility] [address] [place] [address] Dr. Suzie Brooks Clarity (U) CLEAR Normal CLEAR [facility] Comment on above: Performed By: #### C VDTBH #### [facility] [address] [place] [address] Dr. Suzie Brooks Color (U) DK. YELLOW Normal YELLOW [facility] Comment on above: Performed By: #### C VDTBH #### [facility] [address] [place] [address] Dr. Suzie Brooks ERUDIOGOD A micrscopic examina tion will be performed if indicated. Normal [facility] Comment on above: Performed By: #### C VDTBH #### [facility] [address] [place] [address] Dr. Suzie Brooks Glucose Ql (U) Negative Normal NEGATIVE [facility] Comment on above: Performed By: #### C VDTBH #### [facility] [address] [address] [address] Suzie Brooks Hemoglobin Ql (U) LARGE Abnormal NEGATIVE [facility] Comment on above: Performed By: #### C VDTBH #### [facility] [address] [place] [address] Dr. Suzie Brooks Ketones Ql (U) Negative Normal NEGATIVE [facility] Comment on above: Performed By: #### C VDTBH #### [facility] [address] [place] [address] Dr. Suzie Brooks LEUKOCYTES Negative Normal NEGATIVE [facility] Comment on above: Performed By: #### C VDTBH #### [facility] [address] [place] [address] Dr. Suzie Brooks Nitrite Ql (U) Negative Normal NEGATIVE [facility] Comment on above: Performed By: #### C VDTBH #### [facility] [address] [place] [address] Dr. Suzie Brooks pH (U) 5.0 [pH] Normal 5-[address] [facility] Comment on above: Performed By: #### C VDTBH #### [facility] [address] [place] [address] Dr. Suzie Brooks Protein (U) [Mass/Vol] 100 mg/dL Abnormal NEGATIVE/ TRACE [facility] Comment on above: Performed By: #### C VDTBH #### [facility] [address] [place] [address] Dr. Suzie Brooks SPEC GRAVITY >=1.030 Abnormal 1.005-<=1.[address] [facility] Comment on above: Performed By: #### C VDTBH #### [facility] [address] [place] [address] Dr. Suzie Brooks UR MICRO IND INDICATED Normal [facility] Comment on above: Performed By: #### C VDTBH #### [facility] [address] [place] [address] Dr. Suzie Brooks Urobilinogen Qn (U) 0.2 {Behzad'U}/dL Normal 0.2 - 1. [address] [facility] Comment on above: Performed By: #### C VDTBH #### [facility] [address] [place] [address] Dr. Suzie Brooks PROF 14(COMP METB)on 022 Albumin [Mass/Vol] 3.9 g/dL Normal 3.4-5.0 [facility] Comment on above: Performed By: #### U DINA, LIPID, TSH, BNP, CMP, T7 #### [facility] [address] [place] [address] Dr. Suzie Brooks Albumin/Globulin [Mass ratio] 1.1 {ratio} Normal [facility] Comment on above: Performed By: #### U DINA, LIPID, TSH, BNP, CMP, T7 #### [facility] [address] [place] [address] Dr. uSzie Brooks ALP [Catalytic activity/Vol] 64 U/L Normal 46-116 [facility] Comment on above: Performed By: #### U DINA, LIPID, TSH, BNP, CMP, T7 #### [facility] [address] [place] [address] Dr. Suzie Brooks ALT [Catalytic activity/Vol] 57 U/L Normal 16-[address] [facility] Comment on above: Performed By: #### U DINA, LIPID, TSH, BNP, CMP, T7 #### [facility] [address] [place] [address] Dr. Suzie Brooks Anion gap [Moles/Vol] 14.4 mmol/L Normal [facility] Comment on above: Performed By: #### U DINA, LIPID, TSH, BNP, CMP, T7 #### [facility] [address] [place] [address] Dr. Suzie Brooks AST [Catalytic activity/Vol] 51 U/L Critically high 15-[address] [facility] Comment on above: Performed By: #### U DINA, LIPID, TSH, BNP, CMP, T7 #### [facility] [address] [place] [address] Dr. Suzie Brooks Bilirubin [Mass/Vol] 0.8 mg/dL Normal 0.2-1.[address] [facility] Comment on above: Performed By: #### U DINA, LIPID, TSH, BNP, CMP, T7 #### [facility] [address] [place] [address] Dr. Suzie Brooks Calcium [Mass/Vol] 8.5 mg/dL Normal 8.5-10.1 [facility] Comment on above: Performed By: #### U DINA, LIPID, TSH, BNP, CMP, T7 #### [facility] [address] [place] [address] Dr. Suzie Brooks Chloride [Moles/Vol] 103 mmol/L Normal 98-[address] [facility] Comment on above: Performed By: #### U DINA, LIPID, TSH, BNP, CMP, T7 #### [facility] [address] [address] [address] Suzie Brooks CO2 [Moles/Vol] 26.8 mmol/L Normal 22.0-30.0 [facility] Comment on above: Performed By: #### U DINA, LIPID, TSH, BNP, CMP, T7 #### [facility] [address] [address] [address] Suzie Brooks Creatinine [Mass/Vol] 0.98 mg/dL Normal 0.66-1.[address] [facility] Comment on above: Performed By: #### U DINA, LIPID, TSH, BNP, CMP, T7 #### [facility] [address] [place] [address] Dr. Suzie Brooks EGFR-AF MOSOTHO >60 Normal >=60 [facility] Comment on above: Performed By: #### U DINA, LIPID, TSH, BNP, CMP, T7 #### [facility] [address] [place] [address] Dr. Suzie Brooks EGFR-NON AF MOSOTHO >60 Normal >=[address] [facility] Comment on above: Performed By: #### U DINA, LIPID, TSH, BNP, CMP, T7 #### [facility] [address] [address] [address] Suzie Brooks Globulin (S) [Mass/Vol] 3.7 g/dL Normal [facility] Comment on above: Performed By: #### U DINA, LIPID, TSH, BNP, CMP, T7 #### [facility] [address] [address] [address] Suzie Brooks Glucose [Mass/Vol] 118 mg/dL Critically high 74-106 [facility] Comment on above: Performed By: #### U DINA, LIPID, TSH, BNP, CMP, T7 #### [facility] [address] [address] [address] Suzie Brooks Potassium [Moles/Vol] 4.2 mmol/L Normal 3.4-5.0 [facility] Comment on above: Performed By: #### U DINA, LIPID, TSH, BNP, CMP, T7 #### [facility] [address] [place] [address] Dr. Suzie Brooks Protein [Mass/Vol] 7.6 g/dL Normal 6.1-8.2 [facility] Comment on above: Performed By: #### U DINA, LIPID, TSH, BNP, CMP, T7 #### [facility] [address] [place] [address] Dr. Suzie Brooks Sodium [Moles/Vol] 140 mmol/L Normal 137-145 [facility] Comment on above: Performed By: #### U DINA, LIPID, TSH, BNP, CMP, T7 #### [facility] [address] [place] [address] Dr. Suzie Brooks Urea nitrogen [Mass/Vol] 14.0 mg/dL Normal 7.0-18.0 [facility] Comment on above: Performed By: #### U DINA, LIPID, TSH, BNP, CMP, T7 #### [facility] [address] [place] [address] Dr. Suzie Brooks Urea nitrogen/Creatinine [Mass ratio] 14.3 mg/mg Normal [facility] Comment on above: Performed By: #### U DINA, LIPID, TSH, BNP, CMP, T7 #### [facility] [address] [place] [address] Dr. Suzie Brooks URINE MICROSCOPIC ONLYon BACTERIA MODERATE Abnormal NONE SEEN [facility] Comment on above: Performed By: #### C VDTBH #### [facility] [address] [place] [address] Dr. Suzie Brooks Bacteria identified Cx Nom (U) INDICATED Normal [facility] Comment on above: Performed By: #### C VDTBH #### [facility] [address] [place] [address] Dr. Suzie Brooks CAST SEEN Abnormal NONE SEEN [facility] Comment on above: Performed By: #### C VDTBH #### [facility] [address] [place] [address] Dr. Suzie Brooks Crystals LM Nom (Urine sed) NONE SEEN Normal NONE SEEN [facility] Comment on above: Performed By: #### C VDTBH #### [facility] [address] [address] [address] Suzie Brooks Epithelial cells LM Ql (Urine sed) RARE Normal NONE SEEN /RARE [facility] Comment on above: Performed By: #### C VDTBH #### [facility] [address] [address] [address] Suzie Brooks HYALINE CAST RARE Normal [facility] Comment on above: Performed By: #### C VDTBH #### [facility] [address] [address] [address] Suzie Brooks MUCOUS NONE SEEN Normal NONE SEEN [facility] Comment on above: Performed By: #### C VDTBH #### [facility] [address] [address] [address] Suzie Brooks RBC (U) [#/Vol] /uL Abnormal 0-2 [facility] Comment on above: Performed By: #### C VDTBH #### [facility] [address] [address] [address] Suzie Brooks WBC NONE SEEN Normal NONE SEEN [facility] Comment on above: Performed By: #### C VDTBH #### [facility] [address] [place] [address] Dr. Suzie Brooks XR KUB 1 VIEWon [...] BEHZAD CARRASQUILLO Date: 2021-11-01 12:07 Normal [facility] CBC AUTO DIFFon 10-26-2021 BASO # 0.1 103/ul Normal 0.0-0.1 [facility] Comment on above: Performed By: #### U DINA, LIPID, TSH, BNP, CMP, T7 #### [facility] [address] [place] [address] Dr. Suzie Brooks Basophils/100 WBC (Bld) 0.7 % Normal 0.2-2.0 [facility] Comment on above: Performed By: #### U DINA, LIPID, TSH, BNP, CMP, T7 #### [facility] [address] [place] [address] Dr. Suzie Brooks EO # 0.2 103/ul Normal 0.0-0.7 [facility] Comment on above: Performed By: #### U DINA, LIPID, TSH, BNP, CMP, T7 #### [facility] [address] [place] [address] Dr. Suzie Brooks Eosinophils/100 WBC (Bld) 1.5 % Normal 0.9-7.0 [facility] Comment on above: Performed By: #### U DINA, LIPID, TSH, BNP, CMP, T7 #### [facility] [address] [place] [address] Dr. Suzie Brooks Erythrocyte distribution width (RBC) [Ratio] 13.9 % Normal 11.0-15.[address] [facility] Comment on above: Performed By: #### U DINA, LIPID, TSH, BNP, CMP, T7 #### [facility] [address] [place] [address] Dr. Suzie Brooks Hematocrit (Bld) [Volume fraction] 47.5 % Normal 42.0-54.0 [facility] Comment on above: Performed By: #### U DINA, LIPID, TSH, BNP, CMP, T7 #### [facility] [address] [place] [address] Dr. Suzie Brooks Hemoglobin (Bld) [Mass/Vol] 15.5 g/dL Normal 14.0-18.[address] [facility] Comment on above: Performed By: #### U DINA, LIPID, TSH, BNP, CMP, T7 #### [facility] [address] [address] [address] Suzie Brooks IG # 0.06 10e3/ul Critically high 0.00-0.03 [facility] Comment on above: Performed By: #### U DINA, LIPID, TSH, BNP, CMP, T7 #### [facility] [address] [address] [address] Suzie Brooks IG % 0.5 % Normal 0.0-0.[address] [facility] Comment on above: Performed By: #### U DINA, LIPID, TSH, BNP, CMP, T7 #### [facility] [address] [address] [address] Suzie Brooks LYMPH # 2.6 103/ul Normal 1.2-3.8 [facility] Comment on above: Performed By: #### U DINA, LIPID, TSH, BNP, CMP, T7 #### [facility] [address] [place] [address] Dr. Suzie Brooks Lymphocytes/100 WBC (Bld) 23.1 % Normal 20.5-60.[address] [facility] Comment on above: Performed By: #### U DINA, LIPID, TSH, BNP, CMP, T7 #### [facility] [address] [address] [address] Suzie Brooks MANUAL DIFF REQ NO Normal [facility] Comment on above: Performed By: #### U DINA, LIPID, TSH, BNP, CMP, T7 #### [facility] [address] [place] [address] Dr. Suzie Brooks MCH (RBC) [Entitic mass] 28.9 pg Normal 25.9-34.[address] [facility] Comment on above: Performed By: #### U DINA, LIPID, TSH, BNP, CMP, T7 #### [facility] [address] [place] [address] Dr. Suzie Brooks MCHC (RBC) [Mass/Vol] 32.6 g/dL Normal 29.9-35.[address] [facility] Comment on above: Performed By: #### U DINA, LIPID, TSH, BNP, CMP, T7 #### [facility] [address] [place] [address] Dr. Suzie Brooks MCV (RBC) [Entitic vol] 88.5 fL Normal 80.0-94.0 [facility] Comment on above: Performed By: #### U DINA, LIPID, TSH, BNP, CMP, T7 #### [facility] [address] [place] [address] Dr. Suzie Brooks MONO # 0.9 103/ul Critically high 0.3-0.8 [facility] Comment on above: Performed By: #### U DINA, LIPID, TSH, BNP, CMP, T7 #### [facility] [address] [place] [address] Dr. Suzie Brooks Monocytes/100 WBC (Bld) 7.9 % Normal 1.7-12.0 [facility] Comment on above: Performed By: #### U DINA, LIPID, TSH, BNP, CMP, T7 #### [facility] [address] [place] [address] Dr. Suzie Brooks NEUT # 7.4 103/ul Critically high 1.4-6.5 [facility] Comment on above: Performed By: #### U DINA, LIPID, TSH, BNP, CMP, T7 #### [facility] [address] [place] [address] Dr. Suzie Brooks Neutrophils/100 WBC (Bld) 66.3 % Normal 43.0-75.0 [facility] Comment on above: Performed By: #### U DINA, LIPID, TSH, BNP, CMP, T7 #### [facility] [address] [place] [address] Dr. Suzie Brooks Platelet mean volume (Bld) [Entitic vol] 9.6 fL Normal 9.5-13.5 [facility] Comment on above: Performed By: #### U DINA, LIPID, TSH, BNP, CMP, T7 #### [facility] [address] [place] [address] Dr. Suzie Brooks PLT 252 103/ul Normal 150-450 [facility] Comment on above: Performed By: #### U DINA, LIPID, TSH, BNP, CMP, T7 #### [facility] [address] [place] [address] Dr. Suzie Brooks RBC 5.37 106/ul Normal 4.70-6.10 [facility] Comment on above: Performed By: #### U DINA, LIPID, TSH, BNP, CMP, T7 #### [facility] [address] [place] [address] Dr. Suzie Brooks WBC 11.2 103/ul Critically high 4.0-11.0 [facility] Comment on above: Performed By: #### U DINA, LIPID, TSH, BNP, CMP, T7 #### [facility] [address] [address] [address] Suzie Brooks Covid-19 PCR (CVDTB)on 10-09 SARS-CoV-2 (COVID-19) RNA SUKHJINDER+probe Ql (Unsp spec) Not detected Normal NOT DETECTED [facility] Comment on above: Result Comment: This test is not yet approved or cleared by the [place] FDA. When there are no FDA-approved or cleared tests available, and other criteria are met, FDA can make tests available under an emergency access mechanism called an Emergency Use Authorization (EUA). The EUA for this test is supported by the Field Director of Health and Human Service's (HHS's) declaration [...] DINA, LIPID, TSH, BNP, CMP, T7 #### [facility] [address] [place] [address] Dr. Suzie Brooks PROF CHEM 8 (BAS METB)on Anion gap [Moles/Vol] 7.7 mmol/L Normal [facility] Comment on above: Performed By: #### C VDTBH #### [facility] [address] [address] [address] Suzie Brooks Calcium [Mass/Vol] 8.6 mg/dL Normal 8.5-10.1 [facility] Comment on above: Performed By: #### C VDTBH #### [facility] [address] [address] [address] Suzie Brooks Chloride [Moles/Vol] 104 mmol/L Normal 98-107 [facility] Comment on above: Performed By: #### C VDTBH #### [facility] [address] [address] [address] Suzie Brooks CO2 [Moles/Vol] 31.8 mmol/L Critically high 22.0-30.0 [facility] Comment on above: Performed By: #### C VDTBH #### [facility] [address] [place] [address] Dr. Suzie Brooks Creatinine [Mass/Vol] 0.99 mg/dL Normal 0.66-1.[address] [facility] Comment on above: Performed By: #### C VDTBH #### [facility] [address] [place] [address] Dr. Suzie Brooks EGFR-AF MOSOTHO >60 Normal >=60 [facility] Comment on above: Performed By: #### C VDTBH #### [facility] [address] [place] [address] Dr. Suzie Brooks EGFR-NON AF MOSOTHO >60 Normal >=60 [facility] Comment on above: Performed By: #### C VDTBH #### [facility] [address] [place] [address] Dr. Suzie Brooks Glucose [Mass/Vol] 94 mg/dL Normal 74-106 [facility] Comment on above: Performed By: #### C VDTBH #### [facility] [address] [address] [address] Suzie Brooks Potassium [Moles/Vol] 4.5 mmol/L Normal 3.4-5.0 [facility] Comment on above: Performed By: #### C VDTBH #### [facility] [address] [place] [address] Dr. Suzie Brooks Sodium [Moles/Vol] 139 mmol/L Normal 137-145 [facility] Comment on above: Performed By: #### C VDTBH #### [facility] [address] [place] [address] Dr. Suzie Brooks Urea nitrogen [Mass/Vol] 12.0 mg/dL Normal 7.0-18.[address] [facility] Comment on above: Performed By: #### C VDTBH #### [facility] [address] [place] [address] Dr. Suzie Brooks Urea nitrogen/Creatinine [Mass ratio] 12.1 mg/mg Normal [facility] Comment on above: Performed By: #### C VDTBH #### [facility] [address] [place] [address] Dr. Suzie Brooks PROTIMEon 10-26-2021 INR Coag (PPP) [Relative time] 0.99 {INR} Normal [facility] Comment on above: Performed By: #### C VDTBH #### [facility] [address] [place] [address] Dr. Suzie Brooks INR GUIDELINES SEE BELOW Normal [facility] Comment on above: Result Comment: TOMMY RED INR: 2.0 - 3.0 CONDITIONS NOT LISTED BELOW 2.5 - 3.5 FOR PROSTHETIC HEART VALVE REPLACEMENT 2.5 - 3.5 RECURRENT THROMBOSIS Performed By: #### C VDTBH #### [facility] [address] [place] [address] Dr. Suzie Brooks PT Coag (PPP) [Time] 10.7 s Normal 9.0-11.[address] [facility] Comment on above: Performed By: #### C VDTBH #### [facility] [address] [place] [address] Dr. Suzie Brooks PTTon 10-26-2021 aPTT Coag (Bld) [Time] 26.4 s Normal 22.3-36.[address] [facility] Comment on above: Performed By: #### C VDTBH #### [facility] [address] [place] [address] Dr. Suzie Brooks XR KUB 1 VIEWon [...] GRAVES Date: 2021-10-17 13:[address] [facility] Vital Signs Date Time Vital Sign Value Performing Clinician Dario mcdonough 04-16-2024 11:38-0400 Blood Pressure Location Micki ZENG [facility] 04-16-2024 11:38-0400 Diastolic blood pressure 75 mm[Hg] Micki ZENG [facility] 04-16-2024 11:38-0400 Heart rate 96 /min Micki ZENG [facility] 04-16-2024 11:38-0400 Respiratory rate 18 /min Micki ZENG [facility] 04-16-2024 11:38-0400 Systolic blood pressure 131 mm[Hg] Micki ZENG [facility] 04-01-2024 15:04-0400 Body height 182.9 cm Roller Work Phone: [facility] 04-01-2024 15:04-0400 Body mass index (BMI) [Ratio] 39.33 kg/m2 Herziodmitriy Brennon [employer] Work Phone: [facility] 04-01-2024 15:04-0400 Body weight 131.54 kg Swift Shiftart Willett [employer] Work Phone: [facility] 04-01-2024 15:04-0400 Diastolic blood pressure 92 mm[Hg] Uliceser Brennon DO Work Phone: [facility] 04-01-2024 15:04-0400 Systolic blood pressure 140 mm[Hg] Uliceser Brennon DO Work Phone: [facility] 04-11-2023 11:55-0400 Blood Pressure Location Micki ZENG [facility] 04-11-2023 11:55-0400 Diastolic blood pressure 76 mm[Hg] Micki ZENG [facility] 04-11-2023 11:55-0400 Heart rate 80 /min Micki ZENG [facility] 04-11-2023 11:55-0400 Respiratory rate 16 /min Micki ZENG [facility] 04-11-2023 11:55-0400 Systolic blood pressure 134 mm[Hg] Micki ZENG [facility] 02-25-2022 14:20-0400 Blood Pressure Location Micki ZENG [facility] 02-25-2022 14:20-0400 Diastolic blood pressure 100 mm[Hg] Micki ZENG [facility] 02-25-2022 14:20-0400 Heart rate 86 /min Micki ZENG [facility] 02-25-2022 14:20-0400 Respiratory rate 16 /min Micki ZENG [facility] 02-25-2022 14:20-0400 Systolic blood pressure 155 mm[Hg] Micki ZENG [facility] [place] Encounters Encounter Date Encounter Type Care Provider Facility Start: 04-15-2025 ambulatory Micki ZENG Facili ty:[facility] [place] Start: 11-09-2024 End: 11-09-2024 Refill Zenaida Marinelli NP Work Phone: [facility] [employer] Comment on above: Essential tremor Start: 08-03-2024 End: 08-03-2024 ambulatory Marielle Lerma Facility:[facility] Start: 04-16-2024 End: 04-16-2024 [facility]ulatory [facility] Start: 04-16-2024 End: 04-16-2024 Patient encounter procedure Micki ZENG [facility] Start: 04-01-2024 End: 04-01-2024 Office outpatient visit 15 minutes Tracey Willett DO Work Phone: [employer] [address] [facility] Comment on above: Essential tremor (Pr imary Dx); Essential hypertension (CMS/HCC) Start: 04-01-2024 End: 04-01-2024 ambulatory TRACEY WILLETT Not Available Start: 04-01-2024 End: 04-01-2024 Bamboo flowsheet Tracey Willett DO Work Phone: [facility] [address] [facility] Start: 04-01-2024 End: 04-01-2024 Bamboo flowsheet Tracey Willett DO Work Phone: [facility] [address] [facility] Start: 04-11-2023 End: 04-11-2023 Patient encounter procedure Micki ZENG [facility] Start: 08-14-[address] MARIELLE LERMA Facility :[facility] Start: 08-13-[address] MARIELLE LERMA Facility :[facility] Start: 07-26-2022 End: 07-27-[address] MARIELLE LERMA Facility:[facility] Start: 07-18-2022 End: 07-19-[address] MICKI ZENG Facility:[facility] Start: 05-15-2022 End: 05-16-[address] MARIELLE LERMA Facility:[facility] Start: 02-25-2022 End: 02-25-2022 Patient encounter procedure Micki ZENG [facility] Start: 02-18-2022 End: 02-18-2022 ambulatory [...] encounter procedure MD Marielle Lerma Work Phone: [facility] Start: 11-12-2021 End: 11-13-[address] MICKI ZENG Facility:[facility] Start: 11-06-2021 End: 11-07-[address] MARIELLE LERMA Facility:[facility] Start: 11-05-2021 End: 11-05-[address] MARIELLE LERMA Facility:[facility] Start: 11-01-2021 End: 11-01-[address] MICKI ZENG Facility:[facility] Start: 10-31-2021 Encounter for preprocedural cardiovascular examination DR MICKI ZENG [facility] Start: 10-30-[address] MICKI ZENG Facil ity:[facility] Start: 10-26-2021 End: 10-27-[address] MICKI ZENG Facility:[facility] Start: 10-26-2021 End: 10-27-2021 Encounter for preprocedural cardiovascular examination DR MICKI ZENG Facility:[facility] Start: 10-17-2021 End: 10-18-[address] MICKI ZENG Facility:[facility] Procedures Date Procedure Procedure Detail Performing Clinician Start: 05-15-[address] JHONATAN ZENG Comment on above: Performed By: #### U DINA, LIPID, TSH, BNP, CMP, T7 #### [facility] [address] [place] [address] Dr. Suzie Brooks Start: 11-21-2021 Cystoscopy Micki ROJAS TERLior Start: 11-06-2021 Cystoscopy Micki ROJAS TERS Start: 11-08-2013 Colonoscopy Clarence Willett DO Work Phone: Start: 11-08-2013 Colonoscopy Micki ROJAS TERLior Comment on above: normal Arthroplasty of knee Micki ZENG Comment on above: right Arthroscopic knee operation Micki ZENG Arthroscopic knee operation Micki ZENG Basal cell carcinoma (morphologic abnormality) Micki ZENG Cataract extraction and insertion of intraocular lens Mickikimberly ZENG Lithotripsy Mickikimberly ZENG Reconstruction of nose Dean aleman ZENG Repair of musculoten dinous cuff of shoulder Micki ZENG Repair of umbilical hernia P atrick ZENG Wide excision Micki THOR Comment on above: basal cell CA- LLE Plan of Treatment Date Care Activity Detail Author Start: 04-18-2025 End: 04-18-2025 Patient encounter procedure [facility] Start: 04-11-2025 Influenza vaccination Influenz a Vaccine (Season Ended) [facility] Start: 04-11-2024 Influenza vaccination Influenza Vacc ine (#1) [facility] Start: 04-01-2024 End: 04-01-2024 Patient encounter procedure 04/01/2024 3:00 PM EDT Office Visit [facility] [address] [place] [id number] Tracey Willett DO [address] [place] [address] Arrived [facility] Comment on above: Arrived Start: 11-09-2023 Screening for malign ant neoplasm of colon [facility] Start: 05-22-2018 Pneumococcal Vaccine : 65+ Years (2 of 2 - PPSV23 or PCV20) Pneumococcal Vaccine: 65+ Years (2 of 2 - PPSV23 or PCV20) [facility] Start: 1950 Screening for malign ant neoplasm of colon [facility] Immunizations Immunization Date Immunization Notes Care Provider Fa cility 05-31-2022 SARS-CoV-2 (COVID-19 ) [id number] Micki ZENG [facility] Comment on above: Result Comment: 2022: [id number] 12-22-2021 SARS-CoV-2 (COVID-19 ) mRNA-1273 vaccine Micki ZENG [facility] 06-05-2021 SARS-CoV-2 (COVID-19 ) mRNA-1273 vaccine Micki ZENG [facility] 05-29-2021 influenza virus vaccine, unspecified formulation Micki ZENG [facility] 05-15-2021 influenza virus vaccine, unspecified formulation Micki ZENG [facility] 11-09-2020 SARS-CoV-2 (COVID-19 ) mRNA-1273 vaccine [place] [facility] 11-01-2020 SARS-CoV-2 (COVID-19 ) mRNA-1273 vaccine [place] [facility] 10-09-2020 SARS-CoV-2 (COVID-19 ) mRNA-1273 vaccine [place] [facility] 10-05-2020 SARS-CoV-2 (COVID-19 ) mRNA-1273 vaccine [place] [facility] 05-17-2020 influenza virus vaccine, unspecified formulation [place] [facility] 06-24-2019 tetanus toxoid, redu roberto carlos diphtheria toxoid, and acellular pertussis vaccine, adsorbed [place] [facility] 05-25-2019 influenza virus vaccine, unspecified formulation [place] [facility] 05-22-2017 influenza virus vaccine, unspecified formulation [place] [facility] 05-22-2017 pneumococcal conjuga te vaccine, 13 valent [facility] 05-30-2016 influenza, unspecifi ed formulation [place] [facility] 11-01-2013 zoster vaccine, live Micki ZENG [facility] 12-18-2005 hepatitis A vaccine, adult dosage Micki ZENG [facility] 10-18-2005 hepatitis B vaccine, pediatric or pediatric/adolescent dosage Micki ZENG [facility] 10-18-2005 tetanus and diphther ia toxoids, adsorbed, preservative free, for adult use (2 Lf of tetanus toxoid and 2 Lf of diphtheria toxoid) Micki ZENG [facility] 07-26-2005 hepatitis B vaccine, pediatric or pediatric/adolescent dosage Micki ZENG [facility] 06-20-2005 hepatitis A vaccine, adult dosage Micki ZENG [facility] 06-20-2005 hepatitis B vaccine, pediatric or pediatric/adolescent dosage Micki ZENG [facility] Payers Date Payer Category Payer Self-pay [id number] 2024 Private Health Insurance [id number] 2017 Medicare [id number] 1959 Medicare [id number] Private Health Insurance [id number] 1950 [facility] [id number] 2.16.84 0.1.622988.3.579.2.593 1952 Unknown [id number] 2.16.84 0.1.176480.3.579.2.593 1952 Unknown [id number] 2.16.84 0.1.857923.3.579.2.593 1952 Unknown [id number] 2.16.84 0.1.486563.3.579.2.593 1952 Unknown [id number] 2.16.84 0.1.045065.3.579.2.593 1952 Unknown [id number] 2.16.84 0.1.318246.3.579.2.593 1952 Unknown [id number] 2.16.84 0.1.156277.3.579.2.593 1952 Unknown [id number] 2.16.84 0.1.152965.3.579.2.593 1952 Unknown [id number] 2.16.84 0.1.293404.3.579.2.593 1952 Unknown [id number] 2.16.84 0.1.465652.3.579.2.593 1952 Unknown [id number] 2.16.84 0.1.267618.3.579.2.593 1952 Unknown [id number] 2.16.84 0.1.264600.3.579.2.593 1952 Unknown [id number] 2.16.84 0.1.505320.3.579.2.593 1952 Unknown [id number] 2.16.84 0.1.165477.3.579.2.593 1952 Unknown [id number] 2.16.84 0.1.566700.3.579.2.593 1952 Unknown [id number] 2.16.84 0.1.292844.3.579.2.593 1952 Unknown [id number] 2.16.84 0.1.931651.3.579.2.593 1952 Unknown [id number] 2.16.84 0.1.824392.3.579.2.593 1952 Unknown [id number] 2.16.84 0.1.220597.3.579.2.1259 1952 Unknown [id number] 2.16.8 40.1.055019.3.579.2.727 1952 Unknown [id number] 2.16.8 40.1.298987.3.579.2.727 Unknown [id number] 2.16.8 40.1.244448.3.579.2.531 Social History Date Type Detail Facility Start: 10-19-2019 End: 04-16-2024 Tobacco smoking status RIIS Ex-smoker (finding) [facility] Start: 1950 Sex Assigned At Male [facility] Tobacco smoking status Never [facility] Start: 03-28-2024 Sex Assigned At Male [facility] Start: 03-28-2024 Tobacco smoking stat us [facility] Never smoked tobacco [facility] Start: 03-28-2024 [...] 04-16-2024 Functional Status N/A [facility] 04-11-2023 Functional Status N/A [facility] 02-25-2022 Functional Status N/A [facility] Clinical Notes 02-25-2022 to 04-16-2024 Tracey Willett DO - 04/01/2024 3:00 PM EDT Note Date & Type Note Facility 04-16-2024 Hospital Discharg e instructions Patient Education 04/16/2024 12:25:38 Kidney Stones, Gqzj-zn-Abrj Kidney Stones Kidney stones are rock-like masses [...] Follow these instructions at home: Medicines Take yllo-wvb-pzpurna and prescription medicines only as told by [...] Kidney Foundation (NKF): kidney.org [facility] (UCF): urologyhealth.org Contact a doctor if: You have [...] provider. Document Revised: 03/21/2023 Document Reviewed: 03/21/2023 [facility] [employer] Patient Education 2023 [employer]. Follow Up Care 04/11/2023 12:50:53 With:THOR BATISTA, Micki Cedeño, URL Address: [facility] [address], [place] [phone] When: Unknown Comments:3 yr w/ KUB [facility] 04-16-2024 Note Patient Education Urology Kidney Stones [...] these instructions at home: Medicines ? Take ejeq-rfn-dwiksse and prescription medicines only as told by [...] provider. Document Revised: 03/21/2023 Document Reviewed: 03/21/2023 [facility] [employer] Patient Education ? 2023 [employer]. [facility] 04-01-2024 History of Presen t illness [...] reflexes are 1+ and symmetric throughout. Coordination: Rdqpxc-sd-ctjs testing and rapid alternating movements are normal Gait: Normal Review and summary of old records: MRI of the brain at [place] 03/10/18: Mild age-related atrophy. No acute findings [...] and return instructions documented in this encounter [facility] 04-11-2023 Hospital Discharg e instructions [...] include: ?8 oz (237 mL) of milk, fhysqqp-idmmhqajvorp-jvlfp milk, and calcium-fortifiedfruit juice. Calcium-fortified means that [...] ?Spinach (cooked), rhubarb, beets, sweet potatoes, and Tajik chard. ?Peanuts. ?Potato chips, brazilian fries, and baked potatoes with skin on. ?Nuts and nut products. ?Chocolate. If you regularly take a diuretic medicine, make sure to eat at least 1 or 2 servings of fruits or vegetables that are high in potassium each day. These include: ?Avocado. ?Banana. ?Lewis, prune, carrot, or tomato juice. ?Baked potato. [...] magnesium, fish oil, or vitamin B6. Take ptlg-lqi-hyninzp and prescription medicines only as told by [...] Casseroles. Pizza. Lasagna. Frozen meals. Potato chips. Vietnamese fries. The items listed above may not [...] provider. Document Revised: 04/08/2022 Document Reviewed: 04/08/2022 [facility] [employer] Patient Education 2022 [employer]. Follow Up Care 08/19/2022 10:39:03 With:THOR BATISTA, Micki Cedeño, URL Address: [facility] [address], [place] [phone]- When:Within 1 Year(s) [facility] 02-25-2022 Hospital Discharg e instructions Patient [...] 07/28/2006 Document Revised: 04/16/2019 Document Reviewed: 06/27/2017 [facility] [employer] Patient Education 2020 [employer]. 02/25/2022 15:28:39 Kidney Stones, Lskg-xr-Ydqa Kidney Stones Kidney stones are rock-like masses [...] Follow these instructions at home: Medicines Take dhmf-rqe-zpskapy and prescription medicines only as told by [...] 01/13/2009 Document Revised: 12/14/2019 Document Reviewed: 12/14/2019 [facility] Patient Education 2019 [employer]. Follow Up Care 11/21/2021 12:48:10 With:Micki ZENG MD, URL Address: [facility] [address], [place] [phone]- [phone] When:Within 4 Month(s) Comments:4 mo fu with IVP [facility] 02-25-2022 Evaluation + Plan note Diagnostic Tests PendingPSA Total 02/25/22Creatinine 02/25/22 [facility] Evaluation + Plan note Future Appointments Appointment Date:04/16/2024 11:00:00 AM Scheduled Provider:Micki ZENG MD Location:[facility] Appointment Type:URO Office Visit [facility] Evaluation + Plan note Future Appointments Appointment Date:04/15/2025 11:00:00 AM Scheduled Provider:Micki ZENG MD Location:[facility] Appointment Type:URO Office Visit [facility] Evaluation note Diagnosis Essential tremor- Primary Essential hypertension (CMS/HCC) Unspecified essential hypertension documented in this encounter [facility] Diagnosis Essential tremor [facility] in this [facility] Narrative No data available for this section [facility] progress note No data available for this section [facility] Chief Complaint and Reason for [...] Marielle Lerma MD Primary Care Provider Active Correspondence Transcriber Relationship Specialty Start Date End Date Marielle Lerma MD [address] [place] [address] PCP - General Family Medicine 04/01/24 Correspondence Transcriber Relationship Specialty Start Date End Date Marielle Lerma MD [address] [place] [address] PCP - General Family Medicine 04/01/24 Correspondence Transcriber Relationship Specialty Start Date End Date Marielle Lerma MD [address] [place] [address] PCP - General Family Medicine 04/01/24 Goals [...] ized section and content) DATE CREATED AUTHOR 08/13/2022 [facility] [place] [facility] DATE CREATED AUTHOR AUTHOR'S ORGANIZ ATION 04/03/2024 [facility] EPIC DATE CREATED AUTHOR AUTHOR'S ORGANIZ ATION 04/18/2024 [facility] DATE CREATED AUTHOR AUTHOR'S ORGANIZ ATION 08/05/2024 [facility] Reason for Visit (unrecogniz ed section and content) Reason Comments Med Refill FOR RECORDS PERTAINING TO PATIENTS WHO ARE [...] BE BASED ON THE PRIMARY CLINICAL RECORDS. [employer] [facility]. provides no warranty or guarantee of the accuracy or completeness of information in this document.
== END 2024-11-22 17:20 | disposition home or self-care (01) ==
LOC: LAB 17:19
PROVIDERS: PCP Family Medicine; Visit Provider Family Medicine
DX: J20.9 Acute bronchitis, unspecified (principal)
CPT/HCPCS: 87070; 87205

== ENCOUNTER 2025-02-01 12:07 | Emergency (ER) | payer MEDICARE, OTHER, SELFPAY ==
[2025-02-01] VITALS (7 sets, daily range): BP systolic 122–185; BP diastolic 78–103; PULSE 92; O2SAT 96; BMI 39.1
--- OUTSIDE RECORDS SUMMARY | 2025-02-01 12:13 | XMS_ITS | Clinical Summary ---
Author Organization [facility] Address [address] [place] [address] Care Team Providers Care Landscape Architecture Professor Name Role Phone Guicho Lerma MD Primary Care Provider [phone] Allergies No known active allergies Medications Colchicine 0.6 MG capsule Take 0.6 mg by mouth 2 (two) times a day as needed Active cloNIDine (Catapres) 0.1 MG tablet Take 0.1 mg by mouth in the morning and 0.1 mg before bedtime. Active meloxicam (Mobic) 15 MG tablet Take 15 mg by mouth Daily Active lisinopril 40 MG tablet Take 40 mg by mouth Daily Active solifenacin (VESIcare) 10 MG tablet Take 10 mg by mouth Daily 4 Active hydroCHLOROthia zide (Microzide) 12.5 MG capsule Take 12.5 mg by mouth Daily 4 Active allopurinol (Zyloprim) 300 MG tablet Take 300 mg by mouth Daily 4 Active HYDROcodone-wesley taminophen ([place]) 10-325 MG tablet Take 1 tablet by mouth in the morning and 1 tablet before bedtime. 4 Active pravastatin (Pravachol) 20 MG tablet Take 20 mg by mouth Daily Active tamsulosin (Flomax) 0.4 MG 24 hr capsule Take 0.4 mg by mouth in the morning and 0.4 mg before bedtime. 4 Active simvastatin (Zocor) 20 MG tablet Take 20 mg by mouth at bedtime Active montelukast (Singulair) 10 MG tablet Take 10 mg by mouth at bedtime Active fluticasone (Flonase) 50 MCG/ACT nasal spray Administer 2 sprays into each nostril in the morning and 2 sprays before bedtime. Shake gently. Before first use, prime pump. After use, clean tip and replace cap.. Active primidone (Mysoline) 50 MG tabletIndicatio ns:Essential tremor Take 1 tablet (50 mg) by mouth in the morning and 1 tablet (50 mg) before bedtime. 180 tablet Active Active Problems Problem Noted Date Diagnosed Date Essential tremor 03/28/2024 Overview (03/28/2024): It is my impression that the patient has essential tremor L>R. This seems to worsen with intention. Well controlled on current treatment. No parkinsonian features identified. PLAN: - Continue primidone 50 mg by mouth BID - The patient requests no sooner follow up than annually. Patient advised to call and schedule sooner should his tremor worsen and he verbalized undestanding. Hypertension 03/28/2024 Overview (03/28/2024): The patient does have hypertension. We discussed elevation in BP today and I advised him to discuss with PCP. Hyperlipidemia 03/28/2024 Overview (03/28/2024): On statin. Recommended close follow up with PCP for ongoing management Encounters Date Type Department Care Team Description 11/09/2024 Refill JOYCE UDAY [address] [place] [phone] Zenaida Marinelli NP Essential tremor from Last 3 Months Family History Medical History Relation Name Comments Aneurysm Other Cancer Other Dementia Other Diabetes Other Heart disease Other Hypertension Other Relation Name Status Comments Other Social History Tobacco Use Types Packs/Day Years Used Date Smoking Tobacco: Never Tobacco Cessation:Counseling Given: Not Answered Alcohol Use Standard Drinks/Week Comments Yes 0 (1 standard drink = 0.6 oz pur e alcohol) AUDIT-C Answer Date Recorded Q1: How often do you have a drink containing alc ohol? 2-4 times a month 03/28/2024 Q2: How many drinks containi ng alcohol do you have on a typical day when you are drinking? 1 or 2 03/28/2024 Q3: How often do you have si x or more drinks on one occasion? Never 03/28/2024 Sex and Gender Information Value Date Recorded Sex Assigned at Not on file Legal Sex Male 8:33 PM EDT Gender Identity Not on file Sexual Orientation Not on file Last Filed Vital Signs Vital Sign Reading Time Taken Comments Blood Pressure 140/92 04/01/2024 3:04 PM EDT Pulse - - Temperature - - Respiratory Rate - - Oxygen Saturation - - Inhaled Oxygen Concentration - - Weight 132 kg (290 lb) 04/01/2024 3:04 PM EDT Height 182.9 cm (6') 04/01/2024 3:04 PM EDT Body Mass Index 39.33 04/01/2024 3:04 PM EDT Plan of Treatment Health Maintenance Due Date Last Done Comments CT Colonography 1950 FIT-DNA 1950 FIT 1950 FOBT 1950 Sigmoidoscopy 1950 Pneumococcal Vaccine: 65+ Ye ars (2 of 2 - PPSV23) 05/22/2018 05/22/2017 Colonoscopy 11/09/2023 11/08/2013 Colorectal Cancer Screening 11/09/2023 Influenza Vaccine (Season Ended) 2025 05/29/2021, 05/15/2021, 05/17/2020, Additional history exists [place] [address] [facility] Care Teams Landscape Architecture Professor Relationship Specialty Start Date End Date Guicho Lerma MD PCP - General Family Medicine 04/01/24
--- OUTSIDE RECORDS SUMMARY | 2025-02-01 12:13 | XMS_ITS | Clinical Summary ---
Author Organization [facility] tem Address [id number] [address] [place] [address] Care Team Providers Care Security Guards Dispatcher Name Role Phone Unavailable Primary Care Provider Unavailabl e Social History Tobacco Use Types Packs/Day Years Used Date Smoking Tobacco: Never Assessed Childcare Answer Date Recorded Childcare Unknown 01/20/2019 Employment Answer Date Recorded Employment Unknown 01/20/2019 Sex and Gender Information Value Date Recorded Sex Assigned at Not on file Legal Sex Male 11:57 AM EDT Gender Identity Not on file Sexual Orientation Not on file Plan of Treatment Not on file Medical Devices Not on file
--- NOTE | 2025-02-01 12:24 | CT_ITS ---
[address] [address] Patient Name: RIZWAN LOCK MRN: [id number] date: 1950 Sex: M Assigned Patient Location: ER Current Patient Location: ER Accession/Order Number: [id number] Exam Date: 02/01/2025 13:09 Report Date: 02/01/2025 13:16 At the request of: LALA AJ MD Procedure: CT abdomen pelvis wo con CT abdomen pelvis wo con 02/01/2025 12:58 PM SIGNS AND SYMPTOMS: Right-sided flank pain and low back pain, history of kidney stones TECHNIQUE: Multidetector ct axial images of the abdomen and pelvis were obtained without IV contrast. Multiplanar reformats were performed and reviewed to further define anatomy and possible pathology. CT was performed with one or more of the following dose reduction techniques: Automated exposure control, adjustment of the mA and/or kV according to patient size, or use of iterative reconstruction technique. COMPARISON: None. FINDINGS: Lower Chest: Within normal limits. ABDOMEN: Liver: Within normal limits. Bile Ducts: Normal caliber. Gallbladder: No calcified gallstones. Normal caliber wall. Pancreas: Within normal limits. Spleen: Within normal limits. Adrenals: Within normal limits. Kidneys: There is a simple cyst in the left renal cortex requiring no follow-up. There is a 2 mm nonobstructing stone in the left renal collecting system. No hydronephrosis. Pelvis: Reproductive Organs: No pelvic masses. Ureters: Within normal limits. Bladder: Within normal limits. Bowel: There are uncomplicated colonic diverticula. There is a normal appendix in the right lower quadrant. Mesenteric Lymph Nodes: No enlarged mesenteric lymph nodes. Peritoneum: No ascites or free air, no fluid collection. Vessels: Atherosclerotic changes are noted in the abdominal aorta. Retroperitoneum: Within normal limits. Abdominal Wall: Within normal limits. Bones: Degenerative changes are noted in the thoracolumbar spine, hips, and sacroiliac joints. CT/CT abdomen pelvis wo con IMPRESSION: No acute intra-abdominal pathology. There is a 2 mm nonobstructing stone in the left renal collecting system. Uncomplicated closure are noted. Impression dictated by: Sid Amaya M.D. 02/01/2025 1:16 PM Dictation Location: [place] [address] Electronically authenticated by: [id number] Y Date: 02/01/2025 13:16
--- NOTE | 2025-02-01 12:30 | ED.GENADUL1 ---
HPI HPI - General Adult General Chief complaint: Back Pain/Injury Stated complaint: R KIDNEY PAIN Time Seen by Provider: 02/01/25 12:19 Source: patient Mode of arrival: walk-in Limitations: no limitations History of Present Illness HPI narrative: 74-year-old male presents for right flank pain. He states its his kidney but he states it does not feel like a kidney stone. There is been no injury and he has had it for several days and it got worse yesterday. No dysuria or hematuria or left-sided pain. It feels like a spasm. Related Data Home Medications ?Medication ?Instructions ?Recorded ?Confirmed allopurinol 300 mg tablet 300 mg PO DAILY 08/15/23 08/02/24 hydrochlorothiazide 12.5 mg capsule 12.5 mg PO QDAY 08/15/23 08/02/24 potassium citrate 10 mEq (1,080 10 meq PO BID 08/15/23 08/02/24 mg) tablet,extended release primidone 50 mg tablet 50 mg PO BID 08/15/23 08/02/24 simvastatin 20 mg tablet 20 mg PO .QHS 08/15/23 08/02/24 solifenacin 10 mg tablet 10 mg PO DAILY 08/15/23 08/02/24 tamsulosin 0.4 mg capsule 0.4 mg PO BID 08/15/23 08/02/24 lisinopril 40 mg tablet 40 mg PO .QD 09/02/23 08/02/24 Previous Rx's ?Medication ?Instructions ?Recorded aspirin 81 mg capsule 81 mg PO DAILY #30 caps 08/15/23 fluticasone propionate 50 2 spray intranasal QD #16 grams 09/06/23 mcg/actuation nasal spray,suspension montelukast 10 mg tablet 10 mg PO QHS #30 tabs 09/06/23 fluticasone furoate 200 1 inh inhalation DAILY #1 ea 11/08/23 mcg-vilanterol 25 mcg/dose inhalation powder (Breo Ellipta) levofloxacin 750 mg tablet 750 mg PO DAILY 10 days #10 tabs 11/08/23 prednisone 20 mg tablet 40 mg (2 x 20 mg) PO DAILY 5 days 07/25/24 #10 tabs benzonatate 200 mg capsule 200 mg PO TID PRN cough #20 caps 08/04/24 levofloxacin 750 mg tablet 750 mg PO DAILY 10 days #10 tabs 08/04/24 prednisone 10 mg tablet 50 mg (5 x 10 mg) PO DAILY #47 tabs 08/04/24 hydrocodone 5 mg-acetaminophen 325 1 tab PO Q6H PRN pain 4 days #14 02/01/25 mg tablet tabs methocarbamol 500 mg tablet 500 mg PO Q8H PRN pain #20 tabs 02/01/25 Allergies Allergy/AdvReac Type Severity Reaction Status Date / Time No Known Drug Allergies Allergy Verified 02/01/25 12:14 Opioid HPI Opioid Management Most Recent Opioid Data: Last Pain Scale 10 Today, 12:37 Last MAR Pain Assessment Today, 12:37 Last ORT Total Score 0 08/02/24, 17:42 Last ORT Risk Category Low Risk 08/02/24, 17:42 Review of Systems ROS Narrative A ten point review of systems is negative except as noted above. [facility] Medical History (Updated 02/01/25 @ 13:27 by Curry Silva MD) COPD exacerbation ?J44.1 - Chronic obstructive pulmonary disease with (acute) exacerbation (ICD-10) Situational anxiety ?F41.8 - Other specified anxiety disorders (ICD-10) Dyspnea ?R06.00 - Dyspnea, unspecified (ICD-10) Centrilobular emphysema ?J43.2 - Centrilobular emphysema (ICD-10) Obesity ?E66.9 - Obesity, unspecified (ICD-10) History of tobacco abuse ?Z87.891 - Personal history of nicotine dependence (ICD-10) Elevated hemidiaphragm ?J98.6 - Disorders of diaphragm (ICD-10) Acute asthmatic bronchitis ?J45.909 - Unspecified asthma, uncomplicated (ICD-10) Dehydration ?E86.0 - Dehydration (ICD-10) Weakness ?R53.1 - Weakness (ICD-10) Acute dyspnea ?R06.00 - Dyspnea, unspecified (ICD-10) 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 - Broken internal right knee prosthesis, initial encounter (ICD-10) Umbilical hernia ?K42.9 - Umbilical hernia without obstruction or gangrene (ICD-10) Kidney stones ?N20.0 - Calculus of kidney (ICD-10) Hx of skin malignancy ?Z85.828 - Personal history of other malignant neoplasm of skin (ICD-10) Chest pain ?R07.9 - Chest pain, unspecified (ICD-10) Surgical History (Updated 09/02/23 @ 16:17 by Nory Patel) History of cataract surgery ?Z98.49 - Cataract extraction status, unspecified eye (ICD-10) History of renal stent H/O lithotripsy ?Z98.890 - Other specified postprocedural states (ICD-10) Family History (Updated 09/02/23 @ 16:18 by Nory Patel) Mother Family history of cancer Family history of hypertension Father Family history of diabetes mellitus Family history of hypertension Family history of myocardial infarction Social History (Updated 08/02/24 @ 17:39 by Heather Haley) Within the past year, how often did you have a drink containing alcohol: never Score interpretation: A score less than 4 is consistent with normal alcohol consumption. Smoking status: Former smoker Non-prescribed substance use: denies use Previous occupational history: Retired Highest level of school completed/degree received: some college, no degree Are you now , , , , never or living with a partner: In a typical week, how many times do you talk on the telephone with family, friends, or neighbors: 3 or more times per week How often do you get together with friends or relatives: 3 or more times per week How often do you attend taoism or uatsdin services: never Do you belong to any clubs or organizations such as taoism groups unions, fraternal or athletic groups, or school groups: no Total score: 2 Score interpretation: A score of greater than or equal to 2 indicates the lowest level of social isolation. Little interest or pleasure in doing things: not at all Feeling down, depressed, or hopeless: not at all Feel stressed/tense/nervous/anxious/difficulty sleeping: not at all Do you think of yourself as: straight/heterosexual Gender Identity: male Exam Narrative Exam Narrative: Nurses note and vital signs reviewed and patient is not hypoxic. General: The patient appears in no apparent distress. Skin: Warm, dry, no pallor noted. There is no rash noted. Head: Normocephalic, atraumatic Eye: Normal conjunctiva, no drainage Ears, Nose, Mouth, and Throat: oral mucosa is moist. Nares patent. Cardiovascular: Regular Rate and Rhythm Respiratory: Patient is in no distress, no accessory muscle use, lungs are clear to auscultation, no wheezing, rales or rhonchi Back: No bruise or rash. He seems to have palpable tenderness in the right flank area. GI: Obese and nontender Musculoskeletal: The patient has no evidence of calf tenderness, no pitting edema, symmetrical pulses noted bilaterally Neurological: A&O, normal speech Psychiatric: Cooperative Constitutional Vital Signs, click to edit/add: Last Vital Signs Pulse 92 H 02/01/25 12:14 Resp 20 02/01/25 12:14 BP 185/101 H 02/01/25 12:14 Pulse Ox 96 02/01/25 12:14 O2 Del Method Room Air 02/01/25 12:14 Course Vital Signs Vital signs: Vital Signs Pulse Rate 92 H 02/01/25 12:14 Respiratory Rate 20 02/01/25 12:14 Blood Pressure 185/101 H 02/01/25 12:14 Pulse Oximetry 96 02/01/25 12:14 Oxygen Delivery Method Room Air 02/01/25 12:14 Pulse Rate 92 H 02/01/25 12:14 Respiratory Rate 20 02/01/25 12:14 Blood Pressure 185/101 H 02/01/25 12:14 Pulse Oximetry 96 02/01/25 12:14 Oxygen Delivery Method Room Air 02/01/25 12:14 Medical Decision Making MDM Narrative Medical decision making narrative: CAT scan does not show any acute findings. He was given Toradol here and prescribed May and Robaxin. My clinical impression is that he is having symptoms from muscle spasm. Treatment diagnosis and follow-up were discussed with the patient. Differential Diagnosis Differential Diagnosis: Kidney stone, UTI, muscle spasm Lab Data Lab results reviewed: Yes I reviewed the patient's lab results Labs: Lab Results 02/01/25 02/01/25 Range/Units 12:20 12:35 WBC 11.1 H (4.0-11.0) 10^3/uL RBC 5.28 (4.70-6.10) 10^6/uL Hgb 15.6 (14.0-18.0) g/dL Hct 46.0 (42.0-54.0) % MCV 87.1 (80.0-94.0) fL MCH 29.5 (25.9-34.0) pg MCHC 33.9 (29.9-35.2) g/dL RDW 14.3 (11.0-15.0) % Plt Count 306 (150-450) 10^3/uL MPV 9.3 L (9.5-13.5) fL Neut % (Auto) 63.2 (43.0-75.0) % Lymph % (Auto) 26.8 (20.5-60.0) % [place] % (Auto) 7.2 (1.7-12.0) % Eos % (Auto) 1.9 (0.9-7.0) % Baso % (Auto) 0.4 (0.2-2.0) % Neut # (Auto) 7.0 H (1.4-6.5) 10^3/uL Lymph # (Auto) 3.0 (1.2-3.8) 10^3/uL [place] # (Auto) 0.8 (0.3-0.8) 10^3/uL Eos # (Auto) 0.2 (0.0-0.7) 10^3/uL Baso # (Auto) 0.0 (0.0-0.1) 10^3/uL Abs Immat Gran (auto) 0.05 H (0.00-0.03) 10^3/uL Imm/Tot Granulo (auto) 0.5 (0.0-0.5) % Sodium 144 (136-145) mmol/L Potassium 3.6 (3.5-5.1) mmol/L Chloride 105 (98-107) mmol/L Carbon Dioxide 28.6 (21.0-32.0) mmol/L Anion Gap 14.0 BUN 13.0 (7.0-18.0) mg/dL Creatinine 0.78 (0.70-1.30) mg/dL Est GFR ( Amer) >60 (>=60 mL/min/1.73m^2) Est GFR (Non-Af Amer) >60 (>=60 mL/min/1.73m^2) BUN/Creatinine Ratio 16.7 Glucose 100 (74-106) mg/dL Calcium 8.9 (8.5-10.1) mg/dL Urine Color Dk. yellow (YELLOW) Urine Clarity Clear (CLEAR) Urine pH 5.0 (5.0-9.0) Ur Specific [place] >=1.030 A (1.005-1.025) Urine Protein Trace (NEG/TRACE) mg/dL Urine Glucose (UA) Negative (NEGATIVE) mg/dL Urine Ketones Trace A (NEGATIVE) mg/dL Urine Occult Blood Negative (NEGATIVE) Urine Nitrite Negative (NEGATIVE) Urine Bilirubin Small A (NEGATIVE) Urine Urobilinogen 0.2 (0.2-1.0) EU/dL Ur Leukocyte Esterase Negative (NEGATIVE) Urine RBC 0-2 (0-2) #/HPF Urine WBC 0-2 A (NONE SEEN) #/HPF Ur Squamous Epith Cells Few A (NONE/RARE) #/LPF Urine Crystals Seen A (None Seen) #/HPF Calcium Oxalate Crystal Few Urine Bacteria Trace A (NONE SEEN) #/HPF Urine Casts None seen (NONE SEEN) #/LPF Urine Mucus Moderate A (NONE SEEN) Ur Culture Indicated? No Imaging Data CT scan - abdomen: Radiologist's impression: ITS Impressions Abdomen/Pelvis CT 02/01/25 12:24 IMPRESSION: No acute intra-abdominal pathology. There is a 2 mm nonobstructing stone in the left renal collecting system. Uncomplicated closure are noted. Impression dictated by: Sid Amaya M.D. 02/01/2025 1:16 PM Dictation Location: [facility] Electronically authenticated by: [id number] Y Date: 02/01/2025 13:16 Discharge Plan Discharge Chief Complaint: Back Pain/Injury Clinical Impression: Muscle spasm Patient Disposition: Home, Self-Care Time of Disposition Decision: 13:27 Condition: Good Mode of Transportation: Private Vehicle Prescriptions / Home Meds: New hydrocodone-acetaminophen 5-325 mg tablet 1 tab PO Q6H PRN (Reason: pain) 4 Days Qty: 14 0RF methocarbamol 500 mg tablet 500 mg PO Q8H PRN (Reason: pain) Qty: 20 0RF No Action lisinopril 40 mg tablet 40 mg PO .QD montelukast 10 mg Tablet 10 mg PO QHS Qty: 30 11RF fluticasone propionate 50 mcg/actuation [place],Suspension 2 spray intranasal QD Qty: 16 11RF levofloxacin 750 mg tablet 750 mg PO DAILY 10 Days Qty: 10 0RF fluticasone furoate-vilanterol [Breo Ellipta] 200-25 mcg/dose blister with device 1 inh inhalation DAILY Qty: 1 11RF prednisone 20 mg tablet 40 mg PO DAILY 5 Days Qty: 10 0RF primidone 50 mg tablet 50 mg PO BID tamsulosin 0.4 mg capsule 0.4 mg PO BID potassium citrate 10 mEq (1,080 mg) tablet extended release 10 meq PO BID simvastatin 20 mg tablet 20 mg PO .QHS hydrochlorothiazide 12.5 mg capsule 12.5 mg PO QDAY allopurinol 300 mg tablet 300 mg PO DAILY solifenacin 10 mg tablet 10 mg PO DAILY aspirin 81 mg capsule 81 mg PO DAILY Qty: 30 11RF benzonatate 200 mg capsule 200 mg PO TID PRN (Reason: cough) Qty: 20 0RF prednisone 10 mg tablet 50 mg PO DAILY Qty: 47 0RF Rx Instructions: 5/day for 3 days. 4/day for 3 days, 3/day for 3 days, 2/day for 3 days, 1/day for 3 days, 1/2 /day for 4 days levofloxacin 750 mg tablet 750 mg PO DAILY 10 Days Qty: 10 0RF Print Language: Chinese Instructions: Muscle Spasm (ED) Referrals: Guicho Lerma MD [Primary Care Provider, Family Practice] - 1 week
[2025-02-01] MEDS: KETOROLAC TROMETHAMINE 30 MG/ML VIAL IVP (12:37)
[2025-02-01 12:46] LABS: Basophils Percent Auto 0.4 % (0.2-2.0); Eosinophils Absolute Auto 0.2 10^3/uL (0.0-0.7); Eosinophils Percent Auto 1.9 % (0.9-7.0); Hemoglobin 15.6 g/dL (14.0-18.0); Immature Granulocytes Abs Auto 0.05 10^3/uL (0.00-0.03); Immature Granulocytes Pct Auto 0.5 % (0.0-0.5); Lymphocytes Percent Auto 26.8 % (20.5-60.0); Mean Corpuscular HGB Conc 33.9 g/dL (29.9-35.2); Mean Corpuscular Hemoglobin 29.5 pg (25.9-34.0); Mean Corpuscular Volume 87.1 fL (80.0-94.0); Mean Platelet Volume 9.3 fL (9.5-13.5); Monocytes Absolute Auto 0.8 10^3/uL (0.3-0.8); Monocytes Percent Auto 7.2 % (1.7-12.0); Neutrophils Percent Auto 63.2 % (43.0-75.0); Platelet Count 306 10^3/uL (150-450); Red Blood Count 5.28 10^6/uL (4.70-6.10); Red Cell Distribution Width 14.3 % (11.0-15.0); White Blood Count 11.1 10^3/uL (4.0-11.0)
[2025-02-01 12:49] LABS: Bilirubin Urine SMALL (NEGATIVE); Blood Urine NEGATIVE (NEGATIVE); Clarity Urine CLEAR (CLEAR); Color Urine DK. YELLOW (YELLOW); Glucose Urine UA NEGATIVE (NEGATIVE); Ketones Urine TRACE mg/dL (NEGATIVE); Leukocyte Esterase Urine NEGATIVE (NEGATIVE); Nitrite Urine NEGATIVE (NEGATIVE); Protein Urine TRACE mg/dL (NEG/TRACE); Specific Gravity Urine >=1.030 (1.005-1.025); Urobilinogen Urine 0.2 EU/dL (0.2-1.0)
[2025-02-01 12:54] LABS: BUN Creatinine Ratio 16.7; Calcium 8.9 mg/dL (8.5-10.1); Carbon Dioxide 28.6 mmol/L (21.0-32.0); Chloride 105 mmol/L (98-107); Estimated GFR (African America >60 (>=60 mL/min/1.73m^2); Estimated GFR (Non-African Ame >60 (>=60 mL/min/1.73m^2); Glucose 100 mg/dL (74-106); Potassium 3.6 mmol/L (3.5-5.1); Sodium 144 mmol/L (136-145)
[2025-02-01 13:21] LABS: Bacteria Urine TRACE #/HPF (NONE SEEN); Mucus Urine MODERATE (NONE SEEN); RBC Urine 0-2 #/HPF (0-2); Squamous Epithelial Cell Urine FEW #/LPF (NONE/RARE); WBC Urine 0-2 #/HPF (NONE SEEN)
[2025-02-01 13:22] LABS: Calcium Oxalate Crystals Urine FEW; Cast Seen? NONE SEEN #/LPF (NONE SEEN); Crystals Seen? Seen #/HPF (None Seen); Urine Culture Indicated NO
== END 2025-02-01 13:48 | disposition home or self-care (01) ==
PROVIDERS: Emergency Provider Emergency Medicine; PCP Family Medicine
DX: M62.838 Other muscle spasm (principal); Z87.891 Personal history of nicotine dependence; R10.9 Unspecified abdominal pain
CPT/HCPCS: 36415; 74176; 80048; 81001; 85025; 96374; 99285; J1885

== ENCOUNTER 2025-04-01 07:38 | Outpatient (OUT) | payer MEDICARE, OTHER, SELFPAY ==
--- OUTSIDE RECORDS SUMMARY | 2025-01-05 11:21 | XMS_ITS ---
Author Organization [facility] [place] Address [address] [place] [address] Care Team Providers Care Industrial Manufacturing Technician Name Role Phone Pasqaule Lerma Primary Care Provider REASON FOR VISIT Hydrocodone refill Medications Medication SIG (Take, Route, Frequency, Duration) Notes Start Date End Date Status HYDROcodone-Acetaminophen 10-325 MG 1/2 - 1 Orally BID as needed for 30 days PRN 01/05/2025 Active Encounters Encounter Location Date Provider Diagnosis [facility] [address] [place] [address] 01/05/2025 Pasquale Lerma Hypertension I10 Assessments Encounter Date Diagnosis (ICD Code) Assessment Notes Treatment Notes Treatment Clinical Notes Section Notes 01/05/2025 Hypertension (ICD-10 - I10) Plan Of Treatment Medication Medication Name Sig Start Date Stop Date Notes HYDROcodone-Acetaminophen 10-325 MG 1/2 - 1 Orally BID as needed for 30 days 01/05/2025 PRN Progress Notes * Tom APARICIO WDOB:1950 (74 yo M)Acc No.[id number]:01/05/2025 Patient: Jean WASHINGTONDAVID Tom Feliciano :1950 A ge:74 Y S ex:Male Address:[address] [place] [address] [place] [address] * Refills Refill HYDROcodone-Acetaminophen Tablet, 10-325 MG, Orally, 60, 1/2 - 1, BID as needed, 30 days, Refills=0 * true * Date: Generated for Noemí razo/Mitra/Cesaritting on: 0 04/01/2025 07:41 AM EDT
--- OUTSIDE RECORDS SUMMARY | 2025-02-04 07:15 | XMS_ITS ---
Author Organization [facility] in [place] Address [address] [place] [address] Care Team Providers Care Bellows Tester Name Role Phone Pasquale Lerma Primary Care Provider [phone] Allergies No Known Allergies REASON FOR VISIT ER F/U 3 days ago - severe back pain- meds from ER not helping- cant hardly walk, ER gave methocarbamol and hydrocodone. Sometimes meds will take the edge off other times it does nothing Medications Medication SIG (Take, Route, Frequency, Duration) Notes Start Date End Date Status Tamsulosin HCl 0.4 MG 1 tablet Oral BID for 90 days Active Simvastatin 20 MG TAKE 1 TABLET BY MOUTH EVERY DAY AT NIGHT for 90 Active Primidone 50 MG 1 tablet Oral Twice a day for 90 days Active Restoril 15 MG 1 capsule at bedtime as needed Orally Once a day for 30 days 02/04/2025 Active Potassium Chloride ER 20 MEQ 1 tablet wi th food Orally Twice Daily for 90 days 05/31/2024 Active Azithromycin 500 MG 1 tablet Orally Once a day for 3 days 02/04/2025 Active HYDROcodone-Acetaminophen 10-325 MG 1/2 - 1 Orally BID as needed for 30 days PRN 01/05/2025 Active hydroCHLOROthiazide 12.5 MG TAKE 1 CAPSU LE BY Mouth Oral Once a day for 90 days Active Flonase Allergy Relief 50 MCG/ACT 1 spray in each nostril Nasally Once a day for 30 days 06/28/2024 Active Lisinopril 40 MG TAKE 1 TABLET BY MOUTH EVERY DAY FOR 90 DAYS for 90 Active Cyclobenzaprine HCl 10 MG 2 tablets Oral ly at bedtime for 90 days 09/06/2024 Active Colchicine 0.6 MG TAKE 1 TABLET BY MOUTH Oral every 2 hours as needed for pain. Max 2 a day for 90 days PRN Active predniSONE 10 MG 5 tabs per day for 3 days, 4 tabs per day for 3 ays, 3 tabs perday for 3 days, 2 tabs per day for 3 days, 1 tab a day for 3 days, 1/2 tab a day for 4 days Orally Once a day for 19 days 02/04/2025 Active Allopurinol 300 MG 1 tablet Oral Once a day for 90 days Active Albuterol Sulfate (2.5 MG/3M L) 0.083% 3 mL as needed Inhalation every 6 hrs 07/26/2024 Active CeleBREX 200 MG 1 capsule with food Orally Once a day for 90 days 03/31/2024 Active Aspirin 81 MG 2 tablets Orally Onc e a day Active oxyCODONE-Acetaminophen 5-32 5 MG 1 tablet as needed Orally every 4 hrs for 7 days 02/04/2025 Active Social History Tobacco Use: Social History Observation Description Date Details (start date - stop date) Former Smoker 08/11/1969 - 08/11/1988 Tobacco Use/Smoking Question Answer Notes Patient is a former smoker When did you start smoking? 08/11/1969 When did you stop smoking? 08/11/1988 AUDIT-C (Standard) Question Answer Notes Did you have a drink containing alcohol in the p ast year? No Points 0 Interpretation Negative Vital Signs Height 72 in 02/04/2025 Blood pressure systolic 160 mm Hg 02/05/20 25 Blood pressure diastolic 80 mm Hg 025 Encounters Encounter Location Date Provider Diagnosis [facility] [address] [place] [address] 02/04/2025 Pasquale Hoy Acute bronchitis, unspecified organism J20.9 and DJD (degenerative joint disease) of knee M17.10 Assessments Encounter Date Diagnosis (ICD Code) Assessment Notes Treatment Notes Treatment Clinical Notes Section Notes 02/04/2025 Acute bronchitis, unspecified organism (ICD-10 - J20.9) Rest and drink more liquids, especially water. You may use a humidifier or vaporizer to help keep the drainage moist. Umld-clz-effsmyw Nasal Saline may help the stuffy and runny nose. Use Ibuprofen and or Tylenol as needed for fever, chills, body aches or pain. Children 5 years old should not be given dlxo-ftm-opiytbk cough and cold medications such as guaifenesin and dextromethorphan. If you're over age 5, you may try dbav-pia-vckwbuv cold medications such as guaifenesin and dextromethorphan, or multi-symptom cold reliever such as Dayquil to help reduce the symptoms. Antibiotics have been prescribed. You should take these until completed and follow the directions. Antibiotics can sometimes cause upset stomach, and in rare cases, serious allergic reactions or serious gastrointestinal problems. If you start having severe abdominal pain, severe vomiting, or bloody diarrhea, you should be reevaluated by your physician or urgent care immediately. Follow up with your Primary Care Provider or return to clinic if symptoms do not improve within 3-5 days. If you develop severe symptoms such as shortness of breath, repeated vomiting, coughing up blood, or chest pain you should go to the emergency room or call 911 02/04/2025 DJD (degenerative joint disease) of knee (ICD-10 - M17.10) 02/04/2025 Other Recommended to rest and use a heating pad on the area. Take NSAIDs for pain as needed Plan Of Treatment Medication Medication Name Sig Start Date Stop Date Notes Restoril 15 MG 1 capsule at bedtime as needed Orally Once a day for 30 days 02/04/2025 Azithromycin 500 MG 1 tablet Orally Once a day for 3 days 02/04/2025 predniSONE 10 MG 5 tabs per day for 3 days, 4 tabs per day for 3 ays, 3 tabs perday for 3 days, 2 tabs per day for 3 days, 1 tab a day for 3 days, 1/2 tab a day for 4 days Orally Once a day for 19 days 02/04/2025 oxyCODONE-Acetaminophen 5-325 MG 1 table t as needed Orally every 4 hrs for 7 days 02/04/2025 Treatment Notes Assessment Notes Acute bronchitis, unspecified organism R est and drink more liquids, especially water. You may use a humidifier or vaporizer to help keep the drainage moist. Jlgd-bur-rngxmzv Nasal Saline may help the stuffy and runny nose. Use Ibuprofen and or Tylenol as needed for fever, chills, body aches or pain. Children 5 years old should not be given faln-lqr-kotrvpi cough and cold medications such as guaifenesin and dextromethorphan. If you're over age 5, you may try ykpm-jed-hiohocc cold medications such as guaifenesin and dextromethorphan, or multi-symptom cold reliever such as Dayquil to help reduce the symptoms. Antibiotics have been prescribed. You should take these until completed and follow the directions. Antibiotics can sometimes cause upset stomach, and in rare cases, serious allergic reactions or serious gastrointestinal problems. If you start having severe abdominal pain, severe vomiting, or bloody diarrhea, you should be reevaluated by your physician or urgent care immediately. Follow up with your Primary Care Provider or return to clinic if symptoms do not improve within 3-5 days. If you develop severe symptoms such as shortness of breath, repeated vomiting, coughing up blood, or chest pain you should go to the emergency room or call 911 Other Recommended to rest and use a heating pad on the area. Take NSAIDs for pain as needed Next Appt Details Follow Up: 3-5 days if not i mproving, Reason: Medications Administered Medication Instructions Date of Administration Dosage Notes Triamcinolone 40 mg/ml 02/04/2025 120 mg Ketorolac Tromethamine 02/04/2025 60 mg Orphenadrine Citrate 02/04/2025 60 mg Progress Notes * Te APARICIOy WDOB:1950 (74 yo M)Acc No.[id number]:02/04/2025 Progress Note Patient: Tom VALERIO W Provider: Daniele Lerma ([facility])MD :1950 A ge:74 Y S ex:Male Date:02/04/2025 Address:[address] [place], [place] [address], [id number] Check In:11:04 AM ESTCheck O ut:11:50 AM EST Subjective: * Chief Complaints: * E R F/U 3 days ago - severe back pain- meds from ER not helping- cant hardly walkER gave methocarbamol and hydrocodone. Sometimes meds will take the edge off other times it does nothing * HPI: G eneral: severe back pain after mowing the lawn - and R sided - no pain into legs had ct in ER and no stones methocarbamol not helping now with coughing up green sputum needing 2 of tehydrocodone to take edge off the painb now with constipation. B ronchitis: The patient complains of symptoms of bronchitis. The symptoms have been present for 1-2 days. The symptoms are moderate. The patient has not been exposed to sick contacts. Symptomatic treatment has included OTC medication. Associated symptoms include nasal congestion, postnasal drainage, congested ears, cough, fever, chills, body aches. B ack Pain: The patient complains of -. The symptoms have been present for 1-2 days. The patient believes symptoms are injury related No. The symptoms are mild. Symptomatic treatment has included heating pad, stretching. Associated symptoms include None. * ROS: G eneral/Constitutional: Lightheadedness d enies. C hange in appetite d enies. W eight Change d enies. E NT: Ear pain d enies. H oarseness d enies. ? C ardiovascular: Edema d enies. I rregular heartbeat d enies. P alpitations d enies. S welling in hands/feet d enies. R espiratory: Comments S ee HPI for details. S hortness of breath d enies. S hortness of breath with exertion d enies. W heezing d enies. G astrointestinal: Abdominal pain d enies. D iarrhea d enies. N ausea d enies. M usculoskeletal: Comments S ee HPI for details. S kin: Rash d enies. N eurologic: Dizziness d enies. F ainting d enies. H eadache?denies. 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 Modified On:04/23/2023/U Status:confirmed C44.519 Basal cell carcinoma of back Modified On:02/06/2023/U Status:confirmed M70.50 Knee bursitis Modified On:02/14/2023/U Status:confirmed I70.90 Atherosclerotic vasc ular disease Modified On:02/06/2023/U Status:confirmed E11.9 Controlled type 2 di abetes mellitus Modified On:02/14/2023U Status:confirmed M17.10 DJD (degenerative kisha int disease) of knee Modified On:02/06/2023U Status:confirmed M17.12 Unilateral primary o steoarthritis, left knee Modified On:01/16/2023 Status:confirmed J01.90 Acute sinus infectio n Modified On:06/13/2023 Status:confirmed J21.9 Acute bronchiolitis Modified On:11/12/2023 Status:confirmed R07.9 Chest pain Modified On:10/06/2023 Status:confirmed J18.9 Right lower lobe pne umonia Modified On:09/11/2023 Status:confirmed D72.829 Elevated WBCs Modified On:10/08/2023 Status:confirmed I10 BP (high blood press ure) Modified On:10/08/2023 Status:confirmed I25.10 CAD (coronary artery disease) Modified On:10/08/2023 Status:confirmed J18.9 Pneumonia Modified On:11/04/2023 Status:confirmed J45.909 Unspecified asthma, uncomplicated Modified On:11/06/2023 Status:confirmed R42 Vertigo Modified On:11/12/2023 Status:confirmed L72.3 Sebaceous cyst Modified On:12/15/2023 Status:confirmed J44.9 COPD (chronic obstru ctive pulmonary disease) Modified On:07/12/2024 Status:confirmed S61.219A Finger laceration Modified On:07/30/2024U Status:confirmed J20.9 Acute bronchitis Modified On:08/09/2024 Status:confirmed J44.1 COPD exacerbation Modified On:09/16/2024 Status:confirmed G47.00 Insomnia Modified On:10/13/2024 Status:confirmed * Medical History: * Surgical History: P artial knee arthroplasty patella, right 07/24/15Knee arthroscopy left excision of 8 skin cancer lesions Hernia Repair PILES Lithotripsy x4 Cystoscopy-multiple plastic surgery to nose x3 Colonoscopy 11/08/2013Laser eye surgery, left 01/02 * Hospitalization/Major Diagno stic Procedure: s ee above chest pain 3Pneumonia Spring 2023 * Family History: F ather: , prostate, diagnosed with Other malignant neoplasm of unspecified site, Diabetes mellitus without mention of complication, type II or unspecified type, not stated as uncontrolled, Unspecified essential hypertension. M other: , Breast cancer, diagnosed with Other malignant neoplasm of unspecified site, Unspecified polyarthropathy or polyarthritis, pelvic region and thigh. S ister(s): alive. S on(s): alive. D doreen(s): alive. 1 sister(s) - healthy. 1 son(s) , 1 daughter(s) - healthy. . * Social History: T obacco Use: T obacco Use/Smoking P atient is a f ormer smoker W hen did you start smoking? 0 08/11/1969 W hen did you stop smoking? 0 08/11/1988 D rug/Alcohol: A MIREYA-C (Standard) D id you have a drink containing alcohol in the past year? N o P oints 0 I nterpretation N egative * Medications: T akingAlbuterol Sulfate (2.5 MG/3ML) 0.083% Nebulization Solution 3 mL as needed Inhalation every 6 hrs Allopurinol 300 MG Tablet 1 tablet Oral Once a day Aspirin 81 MG Tablet Chewable 2 tablets Orally Once a day CeleBREX(Celecoxib) 200 MG Capsule 1 capsule with food Orally Once a day Colchicine 0.6 MG Tablet TAKE 1 TABLET BY MOUTH Oral every 2 hours as needed for pain. Max 2 a day , Notes to Pharmacist: PRNCyclobenzaprine HCl 10 MG Tablet 2 tablets Orally at bedtime Flonase Allergy Relief(Fluticasone Propionate) 50 MCG/ACT Suspension 1 spray in each nostril Nasally Once a day hydroCHLOROthiazide 12.5 MG Capsule TAKE 1 CAPSULE BY Mouth Oral Once a day HYDROcodone-Acetaminophen 10-325 MG Tablet 1/2 - 1 Orally BID as needed , Notes to Pharmacist: PRNLisinopril 40 MG Tablet TAKE 1 TABLET BY MOUTH EVERY DAY FOR 90 DAYS Potassium Chloride ER 20 MEQ Tablet Extended Release 1 tablet with food Orally Twice Daily Primidone 50 MG Tablet 1 tablet Oral Twice a day Restoril(Temazepam) 15 MG Capsule 1 capsule at bedtime as needed Orally Once a day Simvastatin 20 MG Tablet TAKE 1 TABLET BY MOUTH EVERY DAY AT NIGHT Tamsulosin HCl 0.4 MG Capsule 1 tablet Oral BID Taking Albuterol Sulfate (2.5 MG/3ML) 0.083% Nebulization Solution 3 mL as needed Inhalation every 6 hrs Taking Allopurinol 300 MG Tablet 1 tablet Oral Once a day Taking Aspirin 81 MG Tablet Chewable 2 tablets Orally Once a day Taking CeleBREX(Celecoxib) 200 MG Capsule 1 capsule with food Orally Once a day Taking Colchicine 0.6 MG Tablet TAKE 1 TABLET BY MOUTH Oral every 2 hours as needed for pain. Max 2 a day , Notes to Pharmacist: PRNTaking Cyclobenzaprine HCl 10 MG Tablet 2 tablets Orally at bedtime Taking Flonase Allergy Relief(Fluticasone Propionate) 50 MCG/ACT Suspension 1 spray in each nostril Nasally Once a day Taking hydroCHLOROthiazide 12.5 MG Capsule TAKE 1 CAPSULE BY Mouth Oral Once a day Taking HYDROcodone-Acetaminophen 10-325 MG Tablet 1/2 - 1 Orally BID as needed , Notes to Pharmacist: PRNTaking Lisinopril 40 MG Tablet TAKE 1 TABLET BY MOUTH EVERY DAY FOR 90 DAYS Taking Potassium Chloride ER 20 MEQ Tablet Extended Release 1 tablet with food Orally Twice Daily Taking Primidone 50 MG Tablet 1 tablet Oral Twice a day Taking Restoril(Temazepam) 15 MG Capsule 1 capsule at bedtime as needed Orally Once a day Taking Simvastatin 20 MG Tablet TAKE 1 TABLET BY MOUTH EVERY DAY AT NIGHT Taking Tamsulosin HCl 0.4 MG Capsule 1 tablet Oral BID DiscontinuedAzithromycin 250 MG Tablet Take 2 tablets Orally one day one; take 1 tablet daily for four days , Notes to Pharmacist: CANCEL PREVIOUS ANTIBIOTICDiflucan(Fluconazole) 100 MG Tablet 1 tablet Orally daily fentaNYL 12 MCG/HR Patch 72 Hour 1 patch to skin Transdermal Q 3 day levoFLOXacin 750 MG Tablet 1 tablet Orally Once a day Montelukast Sodium 10 MG Tablet 1 tablet Orally Once a day Myrbetriq(Mirabegron ER) 25 MG Tablet Extended Release 24 Hour 1 tablet Orally Once a day predniSONE 20 MG Tablet 2 tablets Orally Once a day Synvisc One(Hylan G-F 20) 48 MG/6ML Solution Prefilled Syringe left knee Intra-articular once DX: M17.10, M70.50Medication List reviewed and reconciled with the patientDiscontinued Azithromycin 250 MG Tablet Take 2 tablets Orally one day one; take 1 tablet daily for four days , Notes to Pharmacist: CANCEL PREVIOUS ANTIBIOTICDiscontinued Diflucan(Fluconazole) 100 MG Tablet 1 tablet Orally daily Discontinued fentaNYL 12 MCG/HR Patch 72 Hour 1 patch to skin Transdermal Q 3 day Discontinued levoFLOXacin 750 MG Tablet 1 tablet Orally Once a day Discontinued Montelukast Sodium 10 MG Tablet 1 tablet Orally Once a day Discontinued Myrbetriq(Mirabegron ER) 25 MG Tablet Extended Release 24 Hour 1 tablet Orally Once a day Discontinued predniSONE 20 MG Tablet 2 tablets Orally Once a day Discontinued Synvisc One(Hylan G-F 20) 48 MG/6ML Solution Prefilled Syringe left knee Intra-articular once DX: M17.10, M70.50Medication List reviewed and reconciled with the patient * Allergies: N .K.D.A.no[Allergies Verified] Objective: * Vitals: W t: Not Taken - Patient Unable, Ht: 72 in, BP:160/80mm Hg, Ht-cm: 182.88 cm. * Examination: G eneral Examination: GENERAL APPEARANCE: in no acute distress , in no acute distress, well developed, well nourished. EYES: EOMI. EARS: auditory canal clear, middle ear effusion noted.? NOSE: clear discharge, turbinates pale and swollen. ORAL CAVITY: mucosa moist. THROAT: no erythema, post-nasal drainage noted. NECK: neck supple, no thyromegaly. LYMPH NODES: n o cervical adenopathy. LUNGS: unlabored, clear to auscultation bilaterally , clear to auscultation bilaterally. CARDIO: n o murmurs, regular rate and rhythm , S1, S2 normal, no murmurs, rubs, gallops. ABDOMEN: bowel sounds present, no organomegaly . MUSCULOSKELETAL: ____. EXTREMITIES: no clubbing, cyanosis, or edema. NEUROLOGIC: alert, oriented to time, place, & person.? Assessment: * Assessment: 1. A cute bronchitis, unspecified organism - J20.9 (Primary) 2 . D LORI (degenerative joint disease) of knee - M17.10 Plan: * Treatment: 2. D LORI (degenerative joint disease) of knee Start oxyCODONE-Acetaminophen Tablet, 5-325 MG, 1 tablet as needed, Orally, every 4 hrs, 7 days, 42 Tablet, Refills 0. 3. O thers Notes: Recommended to rest and use a heating pad on the area. Take NSAIDs for pain as needed ? * Therapeutic Injections: Triamcinolone 40 mg/ml : 120 mg (Route: Intramuscular) given by Jeanette James SA on left gluteus (DJD (degenerative joint disease) of knee) Ketorolac Tromethamine : 60 mg (Route: Intramuscular) given by Jeanette James SA on right gluteus (DJD (degenerative joint disease) of knee) Orphenadrine Citrate : 60 mg (Route: Intramuscular) given by Jeanette James SA on right gluteus (DJD (degenerative joint disease) of knee) * Procedure Codes: [id number] THERAP.INJ. OF MED. INTRAMUSCULAR OR [id number] TMC ACET,PER 10MG., Units: 12.00 J1885 TORADOL, PER 15 MG, Units: 4.00 , Modifiers: JZ J2360 NORFLEX,UP TO 60MG. * Preventive Medicine: Screenings/Counseling: B NV ACTION PLAN Above Normal BMI Follow-up D ietary management education, guidance, and counseling See treatment section of progress note for complete details of management plan. F ALL RISK SCREENING Fall Risk Assessment: N o falls in the past year * Follow Up: 3 -5 days if not improving * * Sign off status: Completed Visit Status: C HK (Check Out) true * Provider: Daniele Lerma ([facility])MD Date: 0 02/04/2025 Generated for Terrancei dung/Mitra/eTransmitting on: 0 04/01/2025 07:41 AM EDT History and Physical Notes * HPI (History of Present Illness) Category Sub-Category Detail Notes Category Not es General severe back pain after mowing the lawn - and R sided - no pain into legs had ct in ER and no stones methocarbamol not helping now with coughing up green sputum needing 2 of tehydrocodone to take edge off the painb now with constipation Examination Category Sub-Category Detail Notes Category Not es General Examination GENERAL APPEARANCE: in no ac fátima distress , in no acute distress, well developed, well nourished EYES: EOMI EARS: auditory canal clear , middle ear effusion noted NOSE: clear discharge, tur binates pale and swollen THROAT: no erythema, post-na yifan drainage noted NECK: neck supple, no thyr omegaly CARDIO: no murmurs, regular rate and rhythm , S1, S2 normal, no murmurs, rubs, gallops LUNGS: unlabored, clear to auscultation bilaterally , clear to auscultation bilaterally ABDOMEN: bowel sounds present , no organomegaly NEUROLOGIC: alert, oriented to t miranda, place, & person EXTREMITIES: no clubbing, cyanosi s, or edema MUSCULOSKELETAL: ____ LYMPH NODES: no cervical adenopat hy ORAL CAVITY: mucosa moist
--- OUTSIDE RECORDS SUMMARY | 2025-03-14 07:24 | XMS_ITS ---
Author Organization [facility] in [place] Address [address] [place] [address] Care Team Providers Care Charting Clerk Name Role Phone Pasquale Lerma Primary Care Provider REASON FOR VISIT refill Medications Medication SIG (Take, Route, Frequency, Duration) Notes Start Date End Date Status Restoril 15 MG 1 capsule at bedtime as needed Orally Once a day for 30 days 03/14/2025 Active oxyCODONE-Acetaminophen 5-325 MG 1 tablet as needed Orally every 4 hrs for 7 days 03/14/2025 Active Encounters Encounter Location Date Provider Diagnosis [facility] [address] [place] [address] 03/14/2025 Pasquale Lerma Acute bronchitis, unspecified organism J20.9 and DJD (degenerative joint disease) of knee M17.10 Assessments Encounter Date Diagnosis (ICD Code) Assessment Notes Treatment Notes Treatment Clinical Notes Section Notes 03/14/2025 Acute bronchitis, unspecified organism (ICD-10 - J20.9) 03/14/2025 DJD (degenerative joint disease) of knee (ICD-10 - M17.10) Plan Of Treatment Medication Medication Name Sig Start Date Stop Date Notes Restoril 15 MG 1 capsule at bedtime as needed Orally Once a day for 30 days 03/14/2025 oxyCODONE-Acetaminophen 5-325 MG 1 table t as needed Orally every 4 hrs for 7 days 03/14/2025 Azithromycin 500 MG 1 tablet Orally Once a day 02/04/2025 predniSONE 10 MG 5 tabs per day for 3 days, 4 tabs per day for 3 ays, 3 tabs perday for 3 days, 2 tabs per day for 3 days, 1 tab a day for 3 days, 1/2 tab a day for 4 days Orally Once a day 02/04/2025 Progress Notes * Tom APARICIO WDOB:1950 (74 yo M)Acc No.[id number]:03/14/2025 Patient: Tom VALERIO W :1950 A ge:74 Y S ex:Male Address:[address] [place] [id number] * Refills Refill Restoril Capsule, 15 MG, Orally, 30 Capsule, 1 capsule at bedtime as needed, Once a day, 30 days, Refills=0 Refill oxyCODONE-Acetaminophen Tablet, 5-325 MG, Orally, 42 Tablet, 1 tablet as needed, every 4 hrs, 7 days, Refills=0 Stop Azithromycin Tablet, 500 MG, Orally, 1 tablet, Once a day Stop predniSONE Tablet, 10 MG, Orally, 5 tabs per day for 3 days, 4 tabs per day for 3 ays, 3 tabs perday for 3 days, 2 tabs per day for 3 days, 1 tab a day for 3 days, 1/2 tab a day for 4 days, Once a day * true * Date: Generated for Noemí razo/Mitra/Roshni on: 0 04/01/2025 07:42 AM EDT
--- OUTSIDE RECORDS SUMMARY | 2025-04-01 07:42 | XMS_ITS | Clinical Summary ---
Author Organization [facility] Address [address] [place] [address] Care Team Providers Care Switchboard Manager Name Role Phone Guicho Lerma MD Primary Care Provider [phone] Allergies No known active allergies Medications Colchicine [...] by mouth Daily 4 Active HYDROcodone-wesley taminophen ([place]) 10-325 MG tablet Take 1 tablet by [...] follow up with PCP for ongoing management Family History Medical History Relation Name Comments [...] 11/08/2013 Colorectal Cancer Screening 11/09/2023 Influenza Vaccine (#1) 2025 , 05/15/2021, 05/17/2020, Additional history exists [place] [address] [facility] Care Teams Switchboard Manager Relationship Specialty Start Date End Date Guicho Lerma MD PCP - General Family Medicine 04/01/24
--- OUTSIDE RECORDS SUMMARY | 2025-04-01 07:42 | XMS_ITS | Clinical Summary ---
Author Organization [facility] tem Address [id number] [address] [place] [address] Care Team Providers Care Resource Technician Name Role Phone Unavailable Primary Care Provider [...]
--- OUTSIDE RECORDS SUMMARY | 2025-04-01 07:42 | XMS_ITS | Clinical Summary ---
Author Organization [facility] Address [address] [place], [place] [id number] Care Team Providers Care Channel Business Manager Name Role Phone Guicho Lerma MD Primary Care Provider [phone] Stephany Delvalle RN Unavailable Unavailabl e Allergies No known active allergies Medications pravastatin (PRAVACHOL) 20 mg tablet Take 20 mg by mouth once daily. Active traZODone (DESYREL) 50 mg tablet Take 50 mg by mouth daily at bedtime. Active aspirin, enteric coated (ASPIRIN, ENTERIC COATED) 81 mg EC tablet Take 325 mg by mouth twice daily. Active GLUC MASON/CHONDRO MASON A/VIT C/MN (GLUCOSAMINE-CH ONDROITIN COMPLX ORAL) Take 1 tablet by mouth once daily. Active FOLIC ACID/MULTIVIT-M IN/LUTEIN (CENTRUM SILVER ORAL) Take 1 tablet by mouth once daily. Active Acetaminophen 500 mg cap Take 1 tablet by mouth three times daily. Active lisinopril (ZESTRIL, PRINIVIL) 20 mg tablet Take 40 mg by mouth once daily. Active Tadalafil (CIALIS) 10 mg tablet Take 10 mg by mouth as needed. Active oxyCODONE-aceta minophen (PERCOCET) 5-325 mg tablet Take 1 tablet by mouth every 4 hours as needed. Active MELOXICAM ORAL Take 15 mg by mouth twice daily. Active fentaNYL (DURAGESIC) 100 mcg/hr Apply 1 Patch as directed every 72 hours. 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 Osteoarthritis Family History Medical History Relation Comments Cancer Father prostate Diabetes Father Heart Father Breast Cancer Mother celiac disease [Other] Mother Relation Status Comments Father Mother Social History Tobacco Use Types Packs/Day Years Used Date Smoking Tobacco: Former Alcohol Use Standard Drinks/Week Comments Yes 0 (1 standard drink = 0.6 oz pur e alcohol) Rarely Sex and Gender Information Value Date Recorded Sex Assigned at Not on file Legal Sex Male 1:31 PM EDT Gender Identity Not on file Sexual Orientation Not on file Last Filed Vital Signs Vital Sign Reading Time Taken Comments Blood Pressure 181/89 12/29/2014 3:14 PM EDT Pulse 70 12/29/2014 3:14 PM EDT Temperature 36.7 C (98 F) 12/29/2014 3:14 PM EDT Respiratory Rate 16 12/29/2014 3:14 PM EDT Oxygen Saturation 95% 12/29/2014 3:14 PM EDT Inhaled Oxygen Concentration - - Weight 126.3 kg (278 lb 8 oz) 06/11/2016 1:10 PM EDT Height 179 cm (5' 10.47 ) 06/11/2016 1:10 PM EDT Body Mass Index 39.43 06/11/2016 1:10 PM EDT Plan of Treatment Health Maintenance Due Date Last Done Comments Abdominal Aortic Aneurysm Screening 1952 Anxiety Screening 1970 Depression Screening 1970 Hepatitis C Screening 1970 DTaP,Tdap,Td Vaccine (1 - Tdap) [address] Colonography 1997 Cologuard (FIT-DNA) 1997 Colonoscopy 1997 Colorectal Cancer Screening 1997 Diabetes Screening 1997 Fecal Occult Blood 1997 Sigmoidoscopy 1997 Pneumococcal Vaccine: 50+ (1 of 1 - PCV) 2002 Shingrix Vaccine (1 of 2) 2002 Advance Directive Discussion 08/11/2024 Influenza Vaccine (#1) 2025 RSV Vaccine (1 - 1-dose 75+ series) 2027 Care Teams Channel Business Manager Relationship Specialty Start Date End Date Guicho Lerma MD PCP - General Family Medicine 12/12/14 Stephany Delvalle, um nurse Coordinator 07/08/16
--- OUTSIDE RECORDS SUMMARY | 2025-04-01 07:42 | XMS_ITS | Patient Health Record ---
Author Organization [facility] in [place] Address [address] [facility] [place] [address] Care Team Providers Care Riveter Helper Name Role Phone Pasquale Lerma Primary Care Provider Allergies No Known Allergies Results Component Value Reference Range Notes CBC AUTO DIFF Reviewed date:04/15/2024 06:11:28 PM Interpretation: Performing Lab: Notes/Report: [facility] , White Blood Count 12.2 4.0-11.0 10 3/uL Red Blood Count 5.53 4.70-6.10 10 6/uL Hemoglobin 16.1 14.0-18.0 g/dL Hematocrit 47.4 42.0-54.0 % Mean Corpuscular Volume 85.7 80.0-94.0 fL Mean Corpuscular Hemoglobin 29.1 25.9-34.0 pg Mean Corpuscular HGB Conc 34.0 29.9-35.2 g/dL Red Cell Distribution Width 14.6 11.0-15.0 % Platelet Count 235 150-450 10 3/uL Mean Platelet Volume 9.2 9.5-13.5 fL Neutrophils Percent Auto 69.2 43.0-75.0 % Lymphocytes Percent Auto 21.7 20.5-60.0 % Monocytes Percent Auto 6.8 1.7-12.0 % Eosinophils Percent Auto 1.6 0.9-7.0 % Basophils Percent Auto 0.4 0.2-2.0 % Immature Granulocytes Pct Auto 0.3 0.0-0.5 % Neutrophils Absolute Auto 8.4 1.4-6.5 10 3/uL Lymphocytes Absolute Auto 2.6 1.2-3.8 10 3/uL Monocytes Absolute Auto 0.8 0.3-0.8 10 3/uL Eosinophils Absolute Auto 0.2 0.0-0.7 10 3/uL Basophils Absolute Auto 0.1 0.0-0.1 10 3/uL Immature Granulocytes Abs Auto 0.04 0.00-0.03 10 3/uL Performing Lab: see note ML - [facility] LB XR chest 1V Reviewed date:04/15/2024 06:11:28 PM Interpretation: Performing Lab: Notes/Report: Source Facility: [place] [address] XRay Report Signed Patient: TOM APARICIO MR#: [id number] : 1950 Acct:[id number] Age/Sex: 73 / M ADM Date: 04/15/24 Loc: ER Attending Dr: Ordering Physician: Arminda Reis Date of Service: 04/15/24 Procedure(s): XR chest 1V Accession Number(s): [id number] cc: Marielle Lerma M.D.; Arminda Reis [place] [address] Patient Name: TOM APARICIO MRN: [id number] date: 1950 Sex: M Assigned Patient Location: ER Current Patient Location: ER Accession/Order Number: [id number] Exam Date: 04/15/2024 15:30 Report Date: 04/15/2024 16:31 At the request of: ARMINDA REIS Procedure: XR chest 1V ONE-VIEW CHEST RADIOGRAPH, 04/15/2024 3:30 PM EDT COMPARISON: Chest, 03/31/2024. CLINICAL HISTORY: Dizzy, hypertension, cough and fatigue Findings and impression: 1. Stable mild chronic elevation of the right hemidiaphragm. Lungs are clear. 2. Mild cardiomegaly. 3. Orthopedic sutures again seen in the left humeral head. No acute osseous abnormality. Electronically authenticated by: Reilly CAST Date: 04/15/2024 16:31 Dictated By: Mason Cast M.D. Signed By: 04/15/241632 DD/ 30 TD/TT: [employer] Presser: [place] [address] XRay Report Signed Patient: TOM APARICIO MR#: [id number] : 1950 Acct:[id number] Age/Sex: 73 / M ADM Date: 04/15/24 Loc: ER Attending Dr: Ordering Physician: Arminda Reis Date of Service: 04/15/24 Procedure(s): XR chest 1V Accession Number(s): [id number] cc: Marielle Lerma M.D. ; Amrinda Reis [place] [address] Patient Name: TOM APARICIO MRN: [id number] date: 1950 Sex: M Assigned Patient Location: ER Current Patient Loca tion: ER Accession/Order Numb er: [id number] Exam Date: 04/15/2024 15:30 Report Date: 04/15/2024 16:31 At the request of: ARMINDA REIS Procedure: XR chest 1V ONE-VIEW CHEST RADIOGRAPH, 04/15/2024 3:30 PM EDT COMPARISON: Chest, 03/31/2024. CLINICAL HISTORY: Di zzy, hypertension, cough and fatigue Findings and impression: 1. Stable mild chron ic elevation of the right hemidiaphragm. Lungs are clear. 2. Mild cardiomegaly. 3. Orthopedic suture s again seen in the left humeral head. No acute osseous abnormality. Electronically authenticated by: Reilly CAST Date: 04/15/2024 16:31 Dictated By: Mason Cast M.D. Signed By: 04/15/241632 DD/ 30 TD/TT: [employer] Presser: [place] whit[place] WARD Reviewed date:04/19/2024 08:31:56 PM Interpretation: Performing Lab: Notes/Report: Source Facility: [place] [address] Ultrasound Report Signed Patient: TOM APARICIO MR#: [id number] : 1950 Acct:[id number] Age/Sex: 73 / M ADM Date: 04/17/24 Loc: US Attending Dr: Miki Zeng M.D. Ordering Physician: Miki Zeng M.D. Date of Service: 04/17/24 Procedure(s): US renal BI Accession Number(s): [id number] cc: Marielle Lerma M.D.; Miki Zeng M.D. [address] [address] Patient Name: TOM APARICIO MRN: [id number] date: 1950 Sex: M Assigned Patient Location: Current Patient Location: Accession/Order Number: [id number] Exam Date: 04/17/2024 10:21 Report Date: 04/19/2024 07:45 At the request of: MIKI ZENG Procedure: US renal BI EXAMINATION: US renal BI HISTORY: KIDNEY STONE N20.0 COMPARISON: No relevant comparison available. TECHNIQUE: Ultrasound examination was performed of the bladder. FINDINGS: Right Kidney: Normal in size, contour and cortical echotexture. The cortex measures 1.4 cm. No solid cortical mass, hydronephrosis or obstructing nephrolithiasis Height: 6.55 cm Length: 13.80 cm Width: 5.12 cm Left Kidney: Normal in size, contour and cortical echotexture. The cortex measures 1.2 cm. No solid cortical mass, or hydronephrosis. Scattered punctate areas of increased echogenicity likely representing nonobstructing nephrolithiasis Height: 6.43 cm Length: 14.25 cm Width: 5.83 cm Urinary bladder is nondistended with a volume of 23 mL US/US renal BI IMPRESSION: Nonobstructing left nephrolithiasis Electronically authenticated by: RAFAEL GRAVES Date: 04/19/2024 07:45 Dictated By: Rafael Graves M.D. Signed By: 04/19/2448 DD/ TD/TT: [employer] Presser: [place] [address] Ultrasound Report Signed Patient: TOM APARICIO MR#: [id number] : 1950 Acct:[id number] Age/Sex: 73 / M ADM Date: 04/17/24 Loc: US Attending Dr: Raul Zeng M.D. Ordering Physician: Miki Zeng M.D. Date of Service: 04/17/24 Procedure(s): US renal BI Accession Number(s): [id number] cc: Marielle Lerma M.D. ; Miki Zeng M.D. [place] [address] Patient Name: TOM APARICIO MRN: [id number] date: 1950 Sex: M Assigned Patient Location: US Current Patient Location: Accession/Order Numb er: [id number] Exam Date: 04/17/2024 10:21 Report Date: 04/19/2024 07:45 At the request of: MIKI ZENG Procedure: US renal BI EXAMINATION: US renal BI HISTORY: KIDNEY STON E N20.0 COMPARISON: No relev ant comparison available. TECHNIQUE: Ultrasoun d examination was performed of the bladder. FINDINGS: Right Kidney: Normal in size, contour and cortical echotexture. The cortex measures 1.4 cm. No solid cortical mass, hydronephrosis or obstructing nephrolithiasis Height: 6.55 cm Alley th: 13.80 cm Width: 5.12 cm Left Kidney: Normal in size, contour and cortical echotexture. The cortex measures 1.2 cm. No solid cortical mass, or hydronephrosis. Scattered punctate areas of increased echogenicity likely representing nonobstructing nephrolithiasis Height: 6.43 cm Alley th: 14.25 cm Width: 5.83 cm Urinary bladder is nondistended with a volume of 23 mL U S/US renal BI IMPRESSION: Nonobstructing left nephrolithiasis Electronically authenticated by: RAFAEL GRAVES Date: 04/19/2024 07:45 Dictated By: Dk Graves M.D. Signed By: 04/19/2448 DD/ TD/TT: [employer] Presser: KAROL Reviewed date:08/02/2024 07:44:29 PM Interpretation: Performing Lab: Notes/Report: [facility] , Insulin 39.1 2.6-24.9 uIU/mL Performed at: - [facility] [address] [id number] Corporate Quality Assurance Manager: Marquis Baez PhD, Phone: [phone] Performing Lab: see note - [facility] LB CBC AUTO DIFF Reviewed date:08/02/2024 07:44:29 PM Interpretation: Performing Lab: Notes/Report: [facility] , White Blood Count 22.4 4.0-11.0 10 3/uL Red Blood Count 5.29 4.70-6.10 10 6/uL Hemoglobin 16.2 14.0-18.0 g/dL Hematocrit 46.9 42.0-54.0 % Mean Corpuscular Volume 88.7 80.0-94.0 fL Mean Corpuscular Hemoglobin 30.6 25.9-34.0 pg Mean Corpuscular HGB Conc 34.5 29.9-35.2 g/dL Red Cell Distribution Width 13.6 11.0-15.0 % Platelet Count 386 150-450 10 3/uL Mean Platelet Volume 8.7 9.5-13.5 fL Performing Lab: see note ML - [facility] LB FREE T3 Reviewed date:08/02/2024 07:44:29 PM Interpretation: Performing Lab: Notes/Report: [facility] , Free T3 3.39 2.18-3.98 pg/mL Performing Lab: see note ML - [facility] LB PROF 14(COMP METB) Reviewed date:08/02/2024 07:44:29 PM Interpretation: Performing Lab: Notes/Report: [facility] , Sodium 136 136-145 mmol/L Potassium 3.6 3.5-5.1 mmol/L Chloride 99 98-107 mmol/L Carbon Dioxide 29.7 21.0-32.0 mmol/L Anion Gap 10.9 Glucose 104 74-106 mg/dL Blood Urea Nitrogen 22.0 7.0-18.0 mg/dL Creatinine 1.04 0.70-1.30 mg/dL Estimated GFR ( Kayla >60 >=60 mL/min/1.73m 2 Estimated GFR (Non- Peggy >60 >=60 mL/min/1.73m 2 BUN Creatinine Ratio 21.2 Calcium 9.2 8.5-10.1 mg/dL Bilirubin Total 0.7 0.2-1.0 mg/dL Aspartate Amino Transferase 53 15-37 U/L Alanine Aminotransferase 109 16-63 U/L Alkaline Phosphatase 65 46-116 U/L Total Protein 6.7 6.4-8.2 g/dL Albumin Level 3.3 3.4-5.0 g/dL Globulin 3.4 Albumin Globulin Ratio 1.0 Performing Lab: see note ML - [facility] LB T4 Reviewed date:08/02/2024 07:44:29 PM Interpretation: Performing Lab: Notes/Report: [facility] , T4 Thyroxine 7.80 4.50-12.10 ug/dL Performing Lab: see note - [facility] LB TSH Reviewed date:08/02/2024 07:44:29 PM Interpretation: Performing Lab: Notes/Report: [facility] , Thyroid Stimulating Hormone 3.988 0.358-3.740 uIU/mL Performing Lab: see note - [facility] LB Manual Differential Reviewed date:08/02/2024 07:44:29 PM Interpretation: Performing Lab: Notes/Report: [facility] , Segmented Neutrophils % Manual 72.0 43.0-75.0 Lymphocytes Percent Manual 22.0 20.5-60.0 % Monocytes Percent Manual 5.0 1.7-12.0 % Eosinophils Percent Manual 1.0 0.9-7.0 % Basophils Percent Manual 0.0 0.2-2.0 % Segmented Neut Absolute Manual 16.12 1.4-6.5 10 3/uL Lymphocytes Absolute Manual 4.92 1.20-3.80 10 3/uL Monocytes Absolute Manual 1.12 0.30-0.80 10 3/uL Eosinophils Absolute Manual 0.22 0.00-0.70 10 3/uL Basophils Abs Manual 0.00 0.00-0.10 1 0 3/uL Performing Lab: see note - [facility] LB CBC AUTO DIFF Reviewed date:08/03/2024 10:03:17 AM Interpretation: Performing Lab: Notes/Report: [facility] , White Blood Count 19.0 4.0-11.0 10 3/uL Red Blood Count 4.95 4.70-6.10 10 6/uL Hemoglobin 15.0 14.0-18.0 g/dL Hematocrit 44.2 42.0-54.0 % Mean Corpuscular Volume 89.3 80.0-94.0 fL Mean Corpuscular Hemoglobin 30.3 25.9-34.0 pg Mean Corpuscular HGB Conc 33.9 29.9-35.2 g/dL Red Cell Distribution Width 13.6 11.0-15.0 % Platelet Count 322 150-450 10 3/uL Mean Platelet Volume 8.9 9.5-13.5 fL Performing Lab: see note - [facility] LB PROF 14(COMP METB) Reviewed date:08/03/2024 10:03:17 AM Interpretation: Performing Lab: Notes/Report: [facility] , Sodium 136 136-145 mmol/L Potassium 3.3 3.5-5.1 mmol/L Chloride 100 98-107 mmol/L Carbon Dioxide 26.6 21.0-32.0 mmol/L Anion Gap 12.7 Glucose 128 74-106 mg/dL Blood Urea Nitrogen 21.0 7.0-18.0 mg/dL Creatinine 1.07 0.70-1.30 mg/dL Estimated GFR ( Kayla >60 >=60 mL/min/1.73m 2 Estimated GFR (Non- Peggy >60 >=60 mL/min/1.73m 2 BUN Creatinine Ratio 19.6 Calcium 8.5 8.5-10.1 mg/dL Bilirubin Total 0.6 0.2-1.0 mg/dL Aspartate Amino Transferase 43 15-37 U/L Alanine Aminotransferase 99 16-63 U/L Alkaline Phosphatase 59 46-116 U/L Total Protein 6.0 6.4-8.2 g/dL Albumin Level 2.9 3.4-5.0 g/dL Globulin 3.1 Albumin Globulin Ratio 0.9 Performing Lab: see note - [facility] LB Manual Differential Reviewed date:08/03/2024 10:03:17 AM Interpretation: Performing Lab: Notes/Report: [facility] , Segmented Neutrophils % Manual 86.0 43.0-75.0 Lymphocytes Percent Manual 8.0 20.5-60.0 % Monocytes Percent Manual 3.0 1.7-12.0 % Eosinophils Percent Manual 1.0 0.9-7.0 % Basophils Percent Manual 0.0 0.2-2.0 % Atypical Lymphocytes % Manual 3.0 Segmented Neut Absolute Manual 16.34 1.4-6.5 10 3/uL Lymphocytes Absolute Manual 1.52 1.20-3.80 10 3/uL Monocytes Absolute Manual 0.57 0.30-0.80 10 3/uL Eosinophils Absolute Manual 0.19 0.00-0.70 10 3/uL Basophils Abs Manual 0.00 0.00-0.10 1 0 3/uL Atypical Lymphocytes Abs Man 0.57 Performing Lab: see note ML - [facility] LB LACTATE or LACTIC ACID Reviewed date:08/03/2024 10:03:17 AM Interpretation: Performing Lab: Notes/Report: [facility] , Lactate/Lactic Acid 3.5 0.4-2.0 mmol/L RESULTS CALLED TO ZEUS DEL ROSARIO RN @BY Radha Gary at 0028 Performing Lab: see note ML - [facility] LB PROF 14(COMP METB) Reviewed date:08/03/2024 10:03:17 AM Interpretation: Performing Lab: Notes/Report: [facility] , Sodium 138 136-145 mmol/L Potassium 3.8 3.5-5.1 mmol/L Chloride 101 98-107 mmol/L Carbon Dioxide 26.3 21.0-32.0 mmol/L Anion Gap 14.5 Glucose 145 74-106 mg/dL Blood Urea Nitrogen 18.0 7.0-18.0 mg/dL Creatinine 0.94 0.70-1.30 mg/dL Estimated GFR ( Kayla >60 >=60 mL/min/1.73m 2 Estimated GFR (Non- Peggy >60 >=60 mL/min/1.73m 2 BUN Creatinine Ratio 19.1 Calcium 8.5 8.5-10.1 mg/dL Bilirubin Total 0.6 0.2-1.0 mg/dL Aspartate Amino Transferase 35 15-37 U/L Alanine Aminotransferase 91 16-63 U/L Alkaline Phosphatase 54 46-116 U/L Total Protein 5.9 6.4-8.2 g/dL Albumin Level 2.8 3.4-5.0 g/dL Globulin 3.1 Albumin Globulin Ratio 0.9 Performing Lab: see note ML - [facility] LB CBC AUTO DIFF Reviewed date:02/02/2025 09:04:50 PM Interpretation: Performing Lab: Notes/Report: [facility] , White Blood Count 11.1 4.0-11.0 10 3/uL Red Blood Count 5.28 4.70-6.10 10 6/uL Hemoglobin 15.6 14.0-18.0 g/dL Hematocrit 46.0 42.0-54.0 % Mean Corpuscular Volume 87.1 80.0-94.0 fL Mean Corpuscular Hemoglobin 29.5 25.9-34.0 pg Mean Corpuscular HGB Conc 33.9 29.9-35.2 g/dL Red Cell Distribution Width 14.3 11.0-15.0 % Platelet Count 306 150-450 10 3/uL Mean Platelet Volume 9.3 9.5-13.5 fL Neutrophils Percent Auto 63.2 43.0-75.0 % Lymphocytes Percent Auto 26.8 20.5-60.0 % Monocytes Percent Auto 7.2 1.7-12.0 % Eosinophils Percent Auto 1.9 0.9-7.0 % Basophils Percent Auto 0.4 0.2-2.0 % Immature Granulocytes Pct Auto 0.5 0.0-0.5 % Neutrophils Absolute Auto 7.0 1.4-6.5 10 3/uL Lymphocytes Absolute Auto 3.0 1.2-3.8 10 3/uL Monocytes Absolute Auto 0.8 0.3-0.8 10 3/uL Eosinophils Absolute Auto 0.2 0.0-0.7 10 3/uL Basophils Absolute Auto 0.0 0.0-0.1 10 3/uL Immature Granulocytes Abs Auto 0.05 0.00-0.03 10 3/uL Performing Lab: see note ML - [facility] LB PROF CHEM 8 (BAS METB) Reviewed date:02/02/2025 09:04:50 PM Interpretation: Performing Lab: Notes/Report: [facility] , Sodium 144 136-145 mmol/L Potassium 3.6 3.5-5.1 mmol/L Chloride 105 98-107 mmol/L Carbon Dioxide 28.6 21.0-32.0 mmol/L Anion Gap 14.0 Glucose 100 74-106 mg/dL Blood Urea Nitrogen 13.0 7.0-18.0 mg/dL Creatinine 0.78 0.70-1.30 mg/dL Estimated GFR ( Kayla >60 >=60 mL/min/1.73m 2 Estimated GFR (Non- Peggy >60 >=60 mL/min/1.73m 2 BUN Creatinine Ratio 16.7 Calcium 8.9 8.5-10.1 mg/dL Performing Lab: see note - [facility] LB UA RANDOM W or MICROSCOPIC Reviewed date:02/02/2025 09:04:50 PM Interpretation: Performing Lab: Notes/Report: [facility] , Color Urine DK. YELLOW YELLOW Clarity Urine CLEAR CLEAR Specific Boyd Urine >=1.030 1.005-1.025 pH Urine 5.0 5.0-9.0 Protein Urine TRACE NEG/TRACE mg/dL Glucose Urine UA NEGATIVE NEGATIVE mg/dL Bilirubin Urine SMALL NEGATIVE Ketones Urine TRACE NEGATIVE mg/dL Blood Urine NEGATIVE NEGATIVE Nitrite Urine NEGATIVE NEGATIVE Urobilinogen Urine 0.2 0.2-1.0 EU/dL Leukocyte Esterase Urine NEGATIVE NEGATIVE WBC Urine 0-2 NONE SEEN #/HPF RBC Urine 0-2 0-2 #/HPF Bacteria Urine TRACE NONE SEEN #/HPF Mucus Urine MODERATE NONE SEEN Squamous Epithelial Cell Urine FEW NONE/RARE #/LPF Crystals Seen? Seen None Seen #/HPF Calcium Oxalate Crystals Urine FEW Cast Seen? NONE SEEN NONE SEEN #/LPF Urine Culture Indicated NO Performing Lab: see note ML - [facility] LB CT abdomen pelvis wo con Reviewed date:02/02/2025 09:04:50 PM Interpretation: Performing Lab: Notes/Report: Source Facility: [place] [address] [place] [address] CT Scan Report Signed Patient: TOM APARICIO MR#: [id number] : 1950 Acct:[id number] Age/Sex: 74 / M ADM Date: 02/01/25 Loc: ER Attending Dr: Ordering Physician: Lala Aj M.D. Date of Service: 02/01/25 Procedure(s): CT abdomen pelvis wo con Accession Number(s): [id number] cc: Marielle Lerma M.D. [address] [address] Patient Name: TOM APARICIO MRN: [id number] date: 1950 Sex: M Assigned Patient Location: ER Current Patient Location: ER Accession/Order Number: [id number] Exam Date: 02/01/2025 13:09 Report Date: 02/01/2025 13:16 At the request of: LALA AJ MD Procedure: CT abdomen pelvis wo con CT abdomen pelvis wo con 02/01/2025 12:58 PM SIGNS AND SYMPTOMS: Right-sided flank pain and low back pain, history of kidney stones TECHNIQUE: Multidetector ct axial images of the abdomen and pelvis were obtained without IV contrast. Multiplanar reformats were performed and reviewed to further define anatomy and possible pathology. CT was performed with one or more of the following dose reduction techniques: Automated exposure control, adjustment of the mA and/or kV according to patient size, or use of iterative reconstruction technique. COMPARISON: None. FINDINGS: Lower Chest: Within normal limits. ABDOMEN: Liver: Within normal limits. Bile Ducts: Normal caliber. Gallbladder: No calcified gallstones. Normal caliber wall. Pancreas: Within normal limits. Spleen: Within normal limits. Adrenals: Within normal limits. Kidneys: There is a simple cyst in the left renal cortex requiring no follow-up. There is a 2 mm nonobstructing stone in the left renal collecting system. No hydronephrosis. Pelvis: Reproductive Organs: No pelvic masses. Ureters: Within normal limits. Bladder: Within normal limits. Bowel: There are uncomplicated colonic diverticula. There is a normal appendix in the right lower quadrant. Mesenteric Lymph Nodes: No enlarged mesenteric lymph nodes. Peritoneum: No ascites or free air, no fluid collection. Vessels: Atherosclerotic changes are noted in the abdominal aorta. Retroperitoneum: Within normal limits. Abdominal Wall: Within normal limits. Bones: Degenerative changes are noted in the thoracolumbar spine, hips, and sacroiliac joints. CT/CT abdomen pelvis wo con IMPRESSION: No acute intra-abdominal pathology. There is a 2 mm nonobstructing stone in the left renal collecting system. Uncomplicated closure are noted. Impression dictated by: Sid Amaya M.D. 02/01/2025 1:16 PM Dictation Location: [place] [address] Electronically authenticated by: [id number] Y Date: 02/01/2025 13:16 Dictated By: Sid Amaya M.D. Signed By: 02/01/25 1318 DD/ 15 TD/TT: [employer] Presser: [address] [address] [address] Scan Report Signed Patient: TOM APARICIO MR#: [id number] : 1950 Acct:[id number] Age/Sex: 74 / M ADM Date: 02/01/25 Loc: ER Attending Dr: Ordering Physician: Lala Aj M.D. Date of Service: 02/01/25 Procedure(s): CT abd omen pelvis wo con Accession Number(s): [id number] cc: Marielle Lerma M.D. [place] [id number] Patient Name: TOM APARICIO MRN: [id number] date: 1950 Sex: M Assigned Patient Location: ER Current Patient Loca tion: ER Accession/Order Numb er: [id number] Exam Date: 02/01/2025 13:09 Report Date: 02/01/2025 13:16 At the request of: LALA AJ MD Procedure: CT abdome n pelvis wo con CT abdomen pelvis wo con 02/01/2025 12:58 PM SIGNS AND SYMPTOMS: Right-sided flank pain and low back pain, history of kidney stones TECHNIQUE: Multidete ctor ct axial images of the abdomen and pelvis were obtained without IV contrast. Multiplanar reformats were performed and reviewed to further define anatomy and possible pathology. CT was performed with one or more of the following dose reduction techniques: Automated exposure control, adjustment of the mA and/or kV according to patient size, or use of iterative reconstruction technique. COMPARISON: None. FINDINGS: Lower Chest: Within normal limits. ABDOMEN: Liver: Within normal limits. Bile Ducts: Normal caliber. Gallbladder: No calc ified gallstones. Normal caliber wall. Pancreas: Within nor mal limits. Spleen: Within rodney l limits. Adrenals: Within nor mal limits. Kidneys: There is a simple cyst in the left renal cortex requiring no follow-up. There is a 2 mm nonobstructing stone in the left renal collecting system. No hydronephrosis. Pelvis: Reproductive Organs: No pelvic masses. Ureters: Within norm al limits. Bladder: Within norm al limits. Bowel: There are uncomplicated colonic diverticula. There is a normal appendix in the righ t lower quadrant. Mesenteric Lymph Nod es: No enlarged mesenteric lymph nodes. Peritoneum: No ascit es or free air, no fluid collection. Vessels: Atheroscler otic changes are noted in the abdominal aorta. Retroperitoneum: Wit hin normal limits. Abdominal Wall: With in normal limits. Bones: Degenerative changes are noted in the thoracolumbar spine, hips, and sacroiliac joints. C T/CT abdomen pelvis wo con IMPRESSION: No acute intra-abdom inal pathology. There is a 2 mm nonobstructing stone in the left renal collecting system. Uncomplicated closur e are noted. Impression dictated by: Sid Amaya M.D. 02/01/2025 1:16 PM Dictation Location: [place] [address] Electronically authenticated by: [id number] Y Date: 02/01/2025 13:16 Dictated By: Sid Amaya M.D. Signed By: 02/01/25 1318 DD/ 1316 TD/TT: [employer] Presser: BNP Reviewed date:04/15/2024 06:11:28 PM Interpretation: Performing Lab: Notes/Report: [facility] , NT Pro B Type Natriuretic Pept 90.0 <=900.0 pg/mL Performing Lab: see note ML - [facility] LB LACTATE or LACTIC ACID Reviewed date:04/15/2024 06:11:28 PM Interpretation: Performing Lab: Notes/Report: [facility] , Lactate/Lactic Acid 1.3 0.4-2.0 mmol/L Performing Lab: see note - [facility] LB PROF 14(COMP METB) Reviewed date:04/15/2024 06:11:28 PM Interpretation: Performing Lab: Notes/Report: [facility] , Sodium 135 136-145 mmol/L Potassium 3.9 3.5-5.1 mmol/L Chloride 102 98-107 mmol/L Carbon Dioxide 26.8 21.0-32.0 mmol/L Anion Gap 10.1 Glucose 103 74-106 mg/dL Blood Urea Nitrogen 16.0 7.0-18.0 mg/dL Creatinine 0.91 0.70-1.30 mg/dL Estimated GFR ( Kayla >60 >=60 Estimated GFR (Non- Peggy >60 >=60 BUN Creatinine Ratio 17.6 Calcium 8.5 8.5-10.1 mg/dL Bilirubin Total 0.7 0.2-1.0 mg/dL Aspartate Amino Transferase 15 15-37 U/L Alanine Aminotransferase 26 16-63 U/L Alkaline Phosphatase 55 46-116 U/L Total Protein 6.3 6.4-8.2 g/dL Albumin Level 3.3 3.4-5.0 g/dL Globulin 3.0 Albumin Globulin Ratio 1.1 Performing Lab: see note ML - [facility] LB TSH Reviewed date:04/15/2024 06:11:28 PM Interpretation: Performing Lab: Notes/Report: [facility] , Thyroid Stimulating Hormone 1.665 0.358-3.740 uIU/mL Performing Lab: see note ML - [facility] LB UA (CLEAN or CATCH) VISUAL EDUCATOR or M ICRO IF IND. Reviewed date:04/15/2024 06:11:28 PM Interpretation: Performing Lab: Notes/Report: [facility] , Color Urine YELLOW YELLOW Clarity Urine CLEAR CLEAR Specific Boyd Urine >=1.030 1.005-1.025 pH Urine 5.5 5.0-9.0 Protein Urine NEGATIVE NEG/TRACE mg/dL Glucose Urine UA NEGATIVE NEGATIVE mg/dL Bilirubin Urine NEGATIVE NEGATIVE Ketones Urine NEGATIVE NEGATIVE mg/dL Blood Urine TRACE-I NEGATIVE Nitrite Urine NEGATIVE NEGATIVE Urobilinogen Urine 0.2 0.2-1.0 EU/dL Leukocyte Esterase Urine NEGATIVE NEGATIVE Urine Microscopic Indicated YES Performing Lab: see note ML - [facility] LB URINE MICROSCOPIC ONLY Reviewed date:04/15/2024 06:11:28 PM Interpretation: Performing Lab: Notes/Report: [facility] , WBC Urine NONE SEEN NONE SEEN #/HPF RBC Urine 0-2 0-2 #/HPF Bacteria Urine TRACE NONE SEEN #/HPF Mucus Urine SMALL NONE SEEN Squamous Epithelial Cell Urine RARE NONE/RARE #/LPF Crystals Seen? None Seen None Seen #/HPF Cast Seen? NONE SEEN NONE SEEN #/LPF Urine Culture Indicated NO Performing Lab: see note - [facility] Prothrombin Time INR Reviewed date:04/15/2024 06:11:28 PM Interpretation: Performing Lab: Notes/Report: [facility] , Prothrombin Time 10.7 9.0-11.6 sec INR 1.01 DESIRED INR: 2.0-3.0 CONDITIONS NOT LISTED BELOW 2.5-3.5 FOR PROSTHETIC HEART VALVE REPLACEMENT 2.5-3.5 RECURRENT THROMBOSIS Performing Lab: see note - [facility] Troponin I High Sensitivity Reviewed date:04/15/2024 06:11:28 PM Interpretation: Performing Lab: Notes/Report: [facility] , Troponin I High Sensitivity 4.7 4.0-76.1 pg/mL CUT-OFF POINTS HAVE BEEN ESTABLISHED BASED ON THE FOURTH UNIVERSAL DEFINITION OF MYOCARDIAL INFARCTION. THE UPPER REFERENCE LIMIT (URL) OF TROPONIN, DEFINED THE 99TH PERCENTILE OF cTnI DISTRIBUTION IN A REFERENCE POPULATION, HAS BEEN CONFIRMED THE DECISION THRESHOLD FOR AL DIAGNOSIS. 99TH PERCENTILE = 76.2 PG/ML NOTE: HIGH-SENSITIVITY TROPONIN ASSAY IS NOT INTENDED TO BE USED IN ISOLATION BUT SHOULD BE INTERPRETED IN CONJUNCTION WITH OTHER DIAGNOSTIC AND CLINICAL INFORMATION. Performing Lab: see note - [facility] ECG 12 lead Reviewed date:04/18/2024 08:22:52 PM Interpretation: Performing Lab: Notes/Report: Source Facility: [place] [address] [place] [address] Electrocardiograph Report Signed Patient: TOM APARICIO MR#: [id number] : 1950 Acct:[id number] Age/Sex: 73 / M ADM Date: 04/15/24 Loc: ER Attending Dr: Ordering Physician: Arminda Reis Date of Service: 04/15/24 Procedure(s): ECG 12 lead Accession Number(s): [id number] cc: [facility] Test Date: 2024-04-15 Pat Name: TOM APARICIO Department: Room: - Gender: Male 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 Signed By: 04/16/241843 DD/ 1431 TD/TT: [employer]: CT head/brain wo con Reviewed date:04/15/2024 06:11:28 PM Interpretation: Performing Lab: Notes/Report: Source Facility: [place] [address] [address] [address] Scan Report Signed Patient: TOM APARICIO MR#: [id number] : 1950 Acct:[id number] Age/Sex: 73 / M ADM Date: 04/15/24 Loc: ER Attending Dr: Ordering Physician: Arminda Reis Date of Service: 04/15/24 Procedure(s): CT head/brain wo con Accession Number(s): [id number] cc: Marielle Lerma M.D. [place] [address] Patient Name: TOM APARICIO MRN: [id number] date: 1950 Sex: M Assigned Patient Location: ER Current Patient Location: ER Accession/Order Number: [id number] Exam Date: 04/15/2024 15:32 Report Date: 04/15/2024 15:54 At the request of: ARMINDA REIS Procedure: CT head/brain wo con EXAMINATION: CT head/brain wo con, 04/15/2024 3:32 PM EDT HISTORY: Dizziness COMPARISON: 09/03/2023 TECHNIQUE: CT scan of the head was performed without IV contrast. CT dose reduction technique was used, including Automated Exposure Control. FINDINGS: BRAIN PARENCHYMA/CSF SPACES: Ventricles are normal in size for age. There is no hemorrhage, mass effect or midline shift. Mild low attenuation in the white matter consistent with chronic microvascular ischemia. PARANASAL SINUSES: Clear. SKULL BASE AND CALVARIUM: Normal. EXTRACRANIAL SOFT TISSUES: Normal. CT/CT head/brain wo con IMPRESSION: No acute intracranial findings. Electronically authenticated by: JOSE ANGEL DWYER Date: 04/15/2024 15:54 Dictated By: Jose Angel Dwyer M.D. Signed By: 04/15/24 1556 DD/ 155 TD/TT: [employer]er: [place] [address] CT Scan Report Signed Patient: TOM APARICIO MR#: [id number] : 1950 Acct:[id number] Age/Sex: 73 / M ADM Date: 04/15/24 Loc: ER Attending Dr: Ordering Physician: Arminda Reis Date of Service: 04/15/24 Procedure(s): CT head/brain wo con Accession Number(s): [id number] cc: Marielle Lerma M.D. The [address] [address] Patient Name: TOM APARICIO MRN: [id number] date: 1950 Sex: M Assigned Patient Location: ER Current Patient Loca tion: ER Accession/Order Numb er: [id number] Exam Date: 04/15/2024 15:32 Report Date: 04/15/2024 15:54 At the request of: ARMINDA REIS Procedure: CT head/b rain wo con EXAMINATION: CT head/brain wo con, 04/15/2024 3:32 PM EDT HISTORY: Dizziness COMPARISON: 09/03/2023 TECHNIQUE: CT scan o f the head was performed without IV contrast. CT dose reduction technique was used, including Automated Exposure Control. FINDINGS: BRAIN PARENCHYMA/CSF SPACES: Ventricles are normal in size for age. There is no hemorrhage, mass eff ect or midline shift. Mild low attenuation in the white matter consistent wi th chronic microvascular ischemia. PARANASAL SINUSES: Clear. SKULL BASE AND ANTHONY RIUM: Normal. EXTRACRANIAL SOFT TISSUES: Normal. C T/CT head/brain wo con IMPRESSION: No acute intracrania l findings. Electronically authenticated by: JOSE ANGEL DWYER Date: 04/15/2024 15:54 Dictated By: Jose Angel Dwyer M.D. Signed By: 04/15/24 1556 DD/ 1554 TD/TT: [employer]: CBC AUTO DIFF Reviewed date:07/30/2024 01:06:05 PM Interpretation: Performing Lab: Notes/Report: [facility] , White Blood Count 25.1 4.0-11.0 10 3/uL Red Blood Count 5.06 4.70-6.10 10 6/uL Hemoglobin 15.6 14.0-18.0 g/dL Hematocrit 44.4 42.0-54.0 % Mean Corpuscular Volume 87.7 80.0-94.0 fL Mean Corpuscular Hemoglobin 30.8 25.9-34.0 pg Mean Corpuscular HGB Conc 35.1 29.9-35.2 g/dL Red Cell Distribution Width 13.8 11.0-15.0 % Platelet Count 457 150-450 10 3/uL Mean Platelet Volume 8.6 9.5-13.5 fL Performing Lab: see note - [facility] LB Manual Differential Reviewed date:07/30/2024 01:06:05 PM Interpretation: Performing Lab: Notes/Report: [facility] , Segmented Neutrophils % Manual 81.0 43.0-75.0 Lymphocytes Percent Manual 10.0 20.5-60.0 % Monocytes Percent Manual 6.0 1.7-12.0 % Eosinophils Percent Manual 0.0 0.9-7.0 % Basophils Percent Manual 0.0 0.2-2.0 % Atypical Lymphocytes % Manual 3.0 Segmented Neut Absolute Manual 20.33 1.4-6.5 10 3/uL Lymphocytes Absolute Manual 2.51 1.20-3.80 10 3/uL Monocytes Absolute Manual 1.50 0.30-0.80 10 3/uL Eosinophils Absolute Manual 0.00 0.00-0.70 10 3/uL Basophils Abs Manual 0.00 0.00-0.10 1 0 3/uL Atypical Lymphocytes Abs Man 0.75 Performing Lab: see note - [facility] LB XR knee KAROL[place] 3V Reviewed date:10/03/2024 09:09:04 AM Interpretation: Performing Lab: Notes/Report: Source Facility: [place] [address] [place] [address] XRay Report Signed Patient: TOM APARICIO MR#: [id number] : 1950 Acct:[id number] Age/Sex: 74 / M ADM Date: 07/30/24 Loc: LAB Attending Dr: Marielle Lerma M.D. Ordering Physician: Marielle Lerma M.D. Date of Service: 07/30/24 Procedure(s): XR knee KAR[place] 3V Accession Number(s): [id number] cc: Marielle Lerma M.D. [place] [address] Patient Name: TOM APARICIO MRN: [id number] date: 1950 Sex: M Assigned Patient Location: LAB Current Patient Location: LAB Accession/Order Number: [id number] Exam Date: 07/30/2024 07:12 Report Date: 07/30/2024 08:20 At the request of: MARIELLE LERMA Procedure: XR knee [place] 3V EXAMINATION: XR knee [place] 3V HISTORY: Knee Bursitis, Left Knee Osteoarthritis COMPARISON: No relevant comparison available. FINDINGS: RIGHT FINDINGS: BONES: No acute fracture or dislocation. Medial compartment hemiarthroplasty with no mechanical failure. Moderate joint space narrowing of the lateral compartment. Moderate osteophytes arthropathy SOFT TISSUES: Negative. No visible soft tissue swelling. OTHER: Small joint effusion. Vascular calcifications LEFT FINDINGS: BONES: No acute fracture or dislocation. Moderate to severe joint osteoarthropathy with joint space narrowing marginal osteophyte formation. Moderate narrowing of the medial joint space SOFT TISSUES: Negative. No visible soft tissue swelling. OTHER: Vascular calcifications XR/XR knee [place] 3V IMPRESSION: RIGHT CONCLUSION: Medial compartment hemiarthroplasty with moderate osteoarthritis LEFT CONCLUSION: Moderate to severe tricompartmental osteoarthritis Electronically authenticated by: RAFAEL GRAVES Date: 07/30/2024 08:20 Dictated By: Rafael Graves M.D. Signed By: 09/30/24 1226 DD/ 0820 TD/TT: [employer]er: [place] [address] XRay Report Signed Patient: TOM APARICIO MR#: [id number] : 1950 Acct:[id number] Age/Sex: 74 / M ADM Date: 07/30/24 Loc: LAB Attending Dr: Maria Isabel Lerma M.D. Ordering Physician: Marielle Lerma M.D. Date of Service: 07/30/24 Procedure(s): XR kne e K[place] 3V Accession Number(s): [id number] cc: Marielle Lerma M.D. [place] [address] Patient Name: TOM APARICIO MRN: [id number] date: 1950 Sex: M Assigned Patient Location: LAB Current Patient Loca tion: LAB Accession/Order Numb er: [id number] Exam Date: 07:12 Report Date: 07/30/2024 08:20 At the request of: MAREILLE HOY Procedure: XR knee [place] 3V EXAMINATION: XR knee [place] 3V HISTORY: Knee Bursit is, Left Knee Osteoarthritis COMPARISON: No relev ant comparison available. FINDINGS: RIGHT FINDINGS: BONES: No acute frac ture or dislocation. Medial compartment hemiarthroplasty with no mechanical failure. Moderate joint space narrowing of the lateral compartment. Moderat e osteophytes arthropathy SOFT TISSUES: Negati ve. No visible soft tissue swelling. OTHER: Small joint effusion. Vascular calcifications LEFT FINDINGS: BONES: No acute frac ture or dislocation. Moderate to severe joint osteoarthropathy wit h joint space narrowing marginal osteophyte formation. Moderate narrowing o f the medial joint space SOFT TISSUES: Negati ve. No visible soft tissue swelling. OTHER: Vascular calcifications X R/XR knee [place] 3V IMPRESSION: RIGHT CONCLUSION: Me dial compartment hemiarthroplasty with moderate osteoarthritis LEFT CONCLUSION: Mod erate to severe tricompartmental osteoarthritis Electronically authenticated by: RAFAEL GRAVES Date: 07/30/2024 08:20 Dictated By: Dk Graves M.D. Signed By: 09/30/24 1226 DD/ 9 TD/TT: [employer]: DAVID Reviewed date:08/03/2024 10:03:17 AM Interpretation: Performing Lab: Notes/Report: [facility] , NT Pro B Type Natriuretic Pept 95.0 <=900.0 pg/mL Performing Lab: see note ML - [facility] LB INFLUENZA A AND B AG Reviewed date:08/02/2024 09:26:49 PM Interpretation: Performing Lab: Notes/Report: [facility] , Influenza Virus A Antigen Negative Negative for Flu A protein antigen. Infection due to Flu A cannot be ruled out. Flu A antigen in the sample may be below the detection limit of the test. Influenza Virus B Antigen Negative Negative for Flu B protein antigen. Infection due to Flu B cannot be ruled out. Flu B antigen in the sample may be below the detection limit of the test. Performing Lab: see note ML - [facility] LB LACTATE or LACTIC ACID Reviewed date:08/03/2024 10:03:17 AM Interpretation: Performing Lab: Notes/Report: [facility] , Lactate/Lactic Acid 2.9 0.4-2.0 mmol/L RESULTS CALLED TO ZEUS DEL ROSARIO RN @BY Radha Gary at 2152 Performing Lab: see note ML - [facility] LB RSV Reviewed date:08/02/2024 09:26:49 PM Interpretation: Performing Lab: Notes/Report: [facility] , Respiratory Syncytial Virus Not Detected NOT DETECTE Performing Lab: see note ML - [facility] LB UA RANDOM W or MICROSCOPIC Reviewed date:08/03/2024 10:03:17 AM Interpretation: Performing Lab: Notes/Report: [facility] , Color Urine YELLOW YELLOW Clarity Urine CLEAR CLEAR Specific Boyd Urine 1.025 1.005-1.025 pH Urine 5.5 5.0-9.0 Protein Urine NEGATIVE NEG/TRACE mg/dL Glucose Urine UA NEGATIVE NEGATIVE mg/dL Bilirubin Urine NEGATIVE NEGATIVE Ketones Urine TRACE NEGATIVE mg/dL Blood Urine NEGATIVE NEGATIVE Nitrite Urine NEGATIVE NEGATIVE Urobilinogen Urine 0.2 0.2-1.0 EU/dL Leukocyte Esterase Urine NEGATIVE NEGATIVE WBC Urine NONE SEEN NONE SEEN #/HPF RBC Urine 0-2 0-2 #/HPF Bacteria Urine TRACE NONE SEEN #/HPF Mucus Urine LARGE NONE SEEN Squamous Epithelial Cell Urine NONE SEEN NONE/RARE #/LPF Crystals Seen? None Seen None Seen #/HPF Cast Seen? NONE SEEN NONE SEEN #/LPF Urine Culture Indicated NO Performing Lab: see note ML - [facility] LB Troponin I High Sensitivity Reviewed date:08/03/2024 10:03:17 AM Interpretation: Performing Lab: Notes/Report: [facility] , Troponin I High Sensitivity 11.6 4.0-76.1 pg/mL CUT-OFF POINTS HAVE BEEN ESTABLISHED BASED ON THE FOURTH UNIVERSAL DEFINITION OF MYOCARDIAL INFARCTION. THE UPPER REFERENCE LIMIT (URL) OF TROPONIN, DEFINED THE 99TH PERCENTILE OF cTnI DISTRIBUTION IN A REFERENCE POPULATION, HAS BEEN CONFIRMED THE DECISION THRESHOLD FOR AL DIAGNOSIS. 99TH PERCENTILE = 76.2 PG/ML NOTE: HIGH-SENSITIVITY TROPONIN ASSAY IS NOT INTENDED TO BE USED IN ISOLATION BUT SHOULD BE INTERPRETED IN CONJUNCTION WITH OTHER DIAGNOSTIC AND CLINICAL INFORMATION. Performing Lab: see note ML - [facility] LB Venous Blood Gas Reviewed date:08/02/2024 09:26:49 PM Interpretation: Performing Lab: Notes/Report: [facility] , pH VBG 7.483 7.330-7.430 PCO2 VBG 37.7 40.0-52.0 mmHg Performing Lab: see note ML - [facility] LB SARS-CoV-2 Ag* Reviewed date:08/02/2024 09:26:49 PM Interpretation: Performing Lab: Notes/Report: [facility] , SARS-CoV-2 Ag POSITIVE NEGATIVE This test has not been FDA cleared or approved, but has been authorized by the FDA under an Emergency Use Authorization (EUA) for use by authorized laboratories certified under CLIA that meet the requirements to perform moderate or high complexity testing. This test has been authorized only for the detection of proteins from SARS-CoV-2, not for any other viruses or pathogens. The emergency use of this test is authorized for the duration of the declaration that circumstances exist justifying the authorization of emergency use of in vitro diagnostic tests for detection and/or diagnosis of Covid-19 under section 564(b)(1) of the Act, 21 U.S.C. 360bbb-3(b)(1), unless the declaration is terminated or authorization is revoked sooner. Performing Lab: see note ML - [facility] LB ECG 12 lead Reviewed date:08/08/2024 03:07:26 PM Interpretation: Performing Lab: Notes/Report: Source Facility: [facility]-[address] [place] [address] [place] [address] Electrocardiograph Report Signed Patient: TOM APARICIO MR#: [id number] : 1950 Acct:[id number] Age/Sex: 74 / M ADM Date: 08/02/24 Loc: MS 212-[address]: Marielle Lerma M.D. 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 Signed By: 08/08/24 0734 DD/ 1620 TD/TT: [employer]: [place] [address] Electrocardiograph Report Signed Patient: TOM APARICIO MR#: [id number] : 1950 Acct:[id number] Age/Sex: 74 / M ADM Date: 08/02/24 Loc: MS 212-[address]: Maria Isabel Lerma M.D. 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 Signed By: 08/08/24 0734 DD/ 1620 TD/TT: [employer]: CBC AUTO DIFF Reviewed date:08/03/2024 10:03:17 AM Interpretation: Performing Lab: Notes/Report: [facility] , White Blood Count 13.3 4.0-11.0 10 3/uL Red Blood Count 4.87 4.70-6.10 10 6/uL Hemoglobin 14.4 14.0-18.0 g/dL Hematocrit 43.2 42.0-54.0 % Mean Corpuscular Volume 88.7 80.0-94.0 fL Mean Corpuscular Hemoglobin 29.6 25.9-34.0 pg Mean Corpuscular HGB Conc 33.3 29.9-35.2 g/dL Red Cell Distribution Width 13.5 11.0-15.0 % Platelet Count 291 150-450 10 3/uL Mean Platelet Volume 8.9 9.5-13.5 fL Neutrophils Percent Auto 83.4 43.0-75.0 % Lymphocytes Percent Auto 9.5 20.5-60.0 % Monocytes Percent Auto 1.4 1.7-12.0 % Eosinophils Percent Auto 0.1 0.9-7.0 % Basophils Percent Auto 0.3 0.2-2.0 % Immature Granulocytes Pct Auto 5.3 0.0-0.5 % Neutrophils Absolute Auto 11.1 1.4-6.5 10 3/uL Lymphocytes Absolute Auto 1.3 1.2-3.8 10 3/uL Monocytes Absolute Auto 0.2 0.3-0.8 10 3/uL Eosinophils Absolute Auto 0.0 0.0-0.7 10 3/uL Basophils Absolute Auto 0.0 0.0-0.1 10 3/uL Immature Granulocytes Abs Auto 0.70 0.00-0.03 10 3/uL Performing Lab: see note ML - [facility] LB Box Test Reviewed date:08/05/2024 06:00:09 PM Interpretation: Performing Lab: Notes/Report: SPUTUM CX GRAM STAIN TO [facility] , BOX Test Sent Out SPUTUM CX/GRAM STAIN BOX Test Reference Lab [facility] BOX Test Date Sent 08/03/24 BOX Test Result SEE SCANNED REPORT HEAVY NORMAL RESPIRATORY ASHLEY 2 DAYS Performing Lab: see note ML - [facility] LB XR chest 1V Reviewed date:08/05/2024 06:00:09 PM Interpretation: Performing Lab: Notes/Report: Source Facility: [facility]-[address] [place] [address] [place] [address] XRay Report Signed Patient: TOM APARICIO MR#: [id number] : 1950 Acct:[id number] Age/Sex: 74 / M ADM Date: 08/02/24 Loc: [place] 212-[address]: Marielle Lerma M.D. Ordering Physician: Yovani Ricardo Date of Service: 08/02/24 Procedure(s): XR chest 1V Accession Number(s): [id number] cc: Marielle Lerma M.D.; Yovani Ricardo [facility] [place] [address] Patient Name: TOM APARICIO MRN: [id number] date: 1950 Sex: M Assigned Patient Location: ER Current Patient Location: MS Accession/Order Number: [id number] Exam Date: 08/02/2024 16:45 Report Date: 08/03/2024 14:12 At the request of: YOVANI RICARDO Procedure: XR chest 1V EXAM: XR chest 1V HISTORY: sob COMPARISON: 04/15/2024. TECHNIQUE: AP chest x-ray. FINDINGS: Cardiac size appears unchanged. Trachea is midline. No mediastinal widening. Similar asymmetric elevation of the right hemidiaphragm. Mild perihilar peribronchial thickening is noted. No interval consolidative change. No pneumothorax or effusion. Osseous structures appear preserved. XR/XR chest 1V IMPRESSION: Reactive or inflammatory airways disease. No focal pneumonia. Electronically authenticated by: PURA HERNÁNDEZ Date: 08/03/2024 14:12 Dictated By: Pura Hernández M.D. Signed By: 08/03/241413 DD/ 11 TD/TT: [employer]er: [place] [address] XRay Report Signed Patient: TOM APARICIO MR#: [id number] : 1950 Acct:[id number] Age/Sex: 74 / M ADM Date: 08/02/24 Loc: MS 212-[address]: Maria Isabel Lerma M.D. Ordering Physician: Yovani Ricardo Date of Service: 08/02/24 Procedure(s): XR chest 1V Accession Number(s): [id number] cc: Marielle Lerma M.D. ; Yovani Ricardo The [address] [address] Patient Name: TOM APARICIO MRN: [id number] date: 1950 Sex: M Assigned Patient Location: ER Current Patient Loca tion: MS Accession/Order Numb er: [id number] Exam Date: 16:45 Report Date: 08/03/2024 14:12 At the request of: YOVANI RICARDO Procedure: XR chest 1V EXAM: XR chest 1V HISTORY: sob COMPARISON: 04/15/2024. TECHNIQUE: AP chest x-ray. FINDINGS: Cardiac si ze appears unchanged. Trachea is midline. No mediastinal widening. Similar asymmetric elevation of the right hemidiaphragm. Mild perihilar peribronch ial thickening is noted. No interval consolidative change. No pneumothorax or effusion. Osseous structures appear preserved. X R/XR chest 1V IMPRESSION: Reactive or inflamma tory airways disease. No focal pneumonia. Electronically authenticated by: PURA HERNÁNDEZ Date: 08/03/2024 14:12 Dictated By: Johnny Hernández M.D. Signed By: 08/03/24 141 DD/ 11 TD/TT: [employer]: CBC AUTO DIFF Reviewed date:08/05/2024 06:00:09 PM Interpretation: Performing Lab: Notes/Report: [facility] , White Blood Count 25.8 4.0-11.0 10 3/uL Red Blood Count 4.90 4.70-6.10 10 6/uL Hemoglobin 14.9 14.0-18.0 g/dL Hematocrit 43.9 42.0-54.0 % Mean Corpuscular Volume 89.6 80.0-94.0 fL Mean Corpuscular Hemoglobin 30.4 25.9-34.0 pg Mean Corpuscular HGB Conc 33.9 29.9-35.2 g/dL Red Cell Distribution Width 13.8 11.0-15.0 % Platelet Count 308 150-450 10 3/uL Mean Platelet Volume 9.1 9.5-13.5 fL Neutrophils Percent Auto 85.3 43.0-75.0 % Lymphocytes Percent Auto 5.9 20.5-60.0 % Monocytes Percent Auto 3.8 1.7-12.0 % Eosinophils Percent Auto 0.0 0.9-7.0 % Basophils Percent Auto 0.2 0.2-2.0 % Immature Granulocytes Pct Auto 4.8 0.0-0.5 % Neutrophils Absolute Auto 22.0 1.4-6.5 10 3/uL Lymphocytes Absolute Auto 1.5 1.2-3.8 10 3/uL Monocytes Absolute Auto 1.0 0.3-0.8 10 3/uL Eosinophils Absolute Auto 0.0 0.0-0.7 10 3/uL Basophils Absolute Auto 0.1 0.0-0.1 10 3/uL Immature Granulocytes Abs Auto 1.24 0.00-0.03 10 3/uL Performing Lab: see note ML - [facility] LB PROF 14(COMP METB) Reviewed date:08/05/2024 06:00:09 PM Interpretation: Performing Lab: Notes/Report: [facility] , Sodium 140 136-145 mmol/L Potassium 3.7 3.5-5.1 mmol/L Chloride 102 98-107 mmol/L Carbon Dioxide 27.6 21.0-32.0 mmol/L Anion Gap 14.1 Glucose 145 74-106 mg/dL Blood Urea Nitrogen 19.0 7.0-18.0 mg/dL Creatinine 0.93 0.70-1.30 mg/dL Estimated GFR ( Kayla >60 >=60 mL/min/1.73m 2 Estimated GFR (Non- Peggy >60 >=60 mL/min/1.73m 2 BUN Creatinine Ratio 20.4 Calcium 8.7 8.5-10.1 mg/dL Bilirubin Total 0.4 0.2-1.0 mg/dL Aspartate Amino Transferase 30 15-37 U/L Alanine Aminotransferase 90 16-63 U/L Alkaline Phosphatase 53 46-116 U/L Total Protein 6.1 6.4-8.2 g/dL Albumin Level 3.0 3.4-5.0 g/dL Globulin 3.1 Albumin Globulin Ratio 1.0 Performing Lab: see note - [facility] LB White Blood Cells Reviewed date:11/27/2024 11:54:12 AM Interpretation: Performing Lab: Notes/Report: [facility] , White Blood Cells See Below For Report White Blood Cells White Blood Cells None seen White Blood Cells Performing Lab: see note LC - [facility] LB Epithelial Cells Reviewed date:11/27/2024 11:54:12 AM Interpretation: Performing Lab: Notes/Report: [facility] , Epithelial Cells See Below For Report Epithelial Cells None seen Performing Lab: see note LC - [facility] LB Result 1 Reviewed date:11/27/2024 11:54:12 AM Interpretation: Performing Lab: Notes/Report: [facility] , Result 1 See Below For Report Result 1 Few gram positive cocci Performing Lab: see note LC - [facility] LB Result 2 Reviewed date:11/27/2024 11:54:12 AM Interpretation: Performing Lab: Notes/Report: [facility] , Result 2 See Below For Report Result 2 *ABNORMAL* Result 2 Rare gram negative rods. Result 2 *ABNORMAL* Performing Lab: see note LC - [facility] LB Result 3 Reviewed date:11/27/2024 11:54:12 AM Interpretation: Performing Lab: Notes/Report: [facility] , Result 3 See Below For Report Result 3 [employer]OKER MECH[employer]IC Performing Lab: see note LC - [facility] LB Result 4 Reviewed date:11/27/2024 11:54:12 AM Interpretation: Performing Lab: Notes/Report: [facility] , Result 4 See Below For Report Result 4 STOKER MECHANIC Performing Lab: see note LC - [facility] LB Gram Stain Evaluation Reviewed date:11/27/2024 11:54:12 AM Interpretation: Performing Lab: Notes/Report: [facility] , Gram Stain Evaluation See Below For Report Gram Stain Evaluation This specimen is of good quality and is acceptable for routine Gram Stain Evaluation bacterial culture. Gram Stain Evaluation This specimen is of good quality and is acceptable for routine Performing Lab: see note LC - [facility] LB Lower Respiratory Culture Reviewed date:11/27/2024 11:54:12 AM Interpretation: Performing Lab: Notes/Report: [facility] , Lower Respiratory Culture See Below For Report Lower Respiratory Culture WILL FOLLOW Lower Respiratory Culture Routine respiratory ashley Lower Respiratory Culture WILL FOLLOW Lower Respiratory Culture Performed at: - [facility] [place] Lower Respiratory Culture WILL FOLLOW Lower Respiratory Culture [address] [place], [place] [id number] Lower Respiratory Culture WILL FOLLOW Lower Respiratory Culture Corporate Quality Assurance Manager: Marquis Baez PhD, Phone: [phone] Lower Respiratory Culture WILL FOLLOW Performing Lab: see note LC - [facility] LB SEE REPORT - [employer] Analyst Id information not found for OBX-specific paper tube grader legend BNP Reviewed date:07/30/2024 01:06:05 PM Interpretation: Performing Lab: Notes/Report: [facility] , NT Pro B Type Natriuretic Pept 185.0 <=900.0 pg/mL Performing Lab: see note ML - [facility] FREE T3 Reviewed date:07/30/2024 01:06:05 PM Interpretation: Performing Lab: Notes/Report: [facility] , Free T3 2.28 2.18-3.98 pg/mL Performing Lab: see note - [facility] LB GLYCOHEMOGLOBIN A1C Reviewed date:07/30/2024 01:06:05 PM Interpretation: Performing Lab: Notes/Report: [facility] , Glycohemoglobin A1C 5.6 4.5-6.2 % ADA RECOMMENDED LIMIT 4.0 - 6.0 ADA THERAPEUTIC TARGET < 7.0 ACTION SUGGESTED > 7.0 Estimated Average Glucose 114 Performing Lab: see note - [facility] LIPID PROFILE Reviewed date:07/30/2024 01:06:05 PM Interpretation: Performing Lab: Notes/Report: [facility] , Triglycerides 115 <=150 mg/dL Cholesterol 260 <=200 mg/dL HDL Cholesterol 52 40-60 mg/dL > or =60 mg/dl - LOW CARDIOVASCULAR RISK <40 mg/dl - HIGH CARDIOVASCULAR RISK LDL Cholesterol Calculated 185.0 <100 mg/dl OPTIMAL 100-129 mg/dl NEAR OR ABOVE OPTIMAL 130-159 mg/dl BORDERLINE HIGH 160-189 mg/dl HIGH >190 mg/dl VERY HIGH VLDL CHOLESTEROL 23.0 Chol HDL Ratio 5.0 3.3 - 4.4 LOW RISK 4.4 - 7.1 AVERAGE RISK 7.1 - 11.0 MODERATE RISK >11.0 HIGH RISK Performing Lab: see note - [facility] PROF 14(COMP METB) Reviewed date:07/30/2024 01:06:05 PM Interpretation: Performing Lab: Notes/Report: [facility] , Sodium 140 136-145 mmol/L Potassium 3.9 3.5-5.1 mmol/L Chloride 102 98-107 mmol/L Carbon Dioxide 25.6 21.0-32.0 mmol/L Anion Gap 16.3 Glucose 119 74-106 mg/dL Blood Urea Nitrogen 27.0 7.0-18.0 mg/dL Creatinine 1.17 0.70-1.30 mg/dL Estimated GFR ( Kayla >60 >=60 mL/min/1.73m 2 Estimated GFR (Non- Peggy >60 >=60 mL/min/1.73m 2 BUN Creatinine Ratio 23.1 Calcium 8.7 8.5-10.1 mg/dL Bilirubin Total 0.6 0.2-1.0 mg/dL Aspartate Amino Transferase 19 15-37 U/L Alanine Aminotransferase 36 16-63 U/L Alkaline Phosphatase 60 46-116 U/L Total Protein 6.6 6.4-8.2 g/dL Albumin Level 3.2 3.4-5.0 g/dL Globulin 3.4 Albumin Globulin Ratio 0.9 Performing Lab: see note - [facility] PSA SCREENING Reviewed date:07/30/2024 01:06:05 PM Interpretation: Performing Lab: Notes/Report: [facility] , Prostate Specific Antigen Scrn 0.82 <=4.00 ng/mL Performing Lab: see note ML - [facility] T4 Reviewed date:07/30/2024 01:06:05 PM Interpretation: Performing Lab: Notes/Report: [facility] , T4 Thyroxine 4.80 4.50-12.10 ug/dL Performing Lab: see note - [facility] TSH Reviewed date:07/30/2024 01:06:05 PM Interpretation: Performing Lab: Notes/Report: [facility] , Thyroid Stimulating Hormone 1.543 0.358-3.740 uIU/mL Performing Lab: see note - [facility] LB URIC ACID SERUM Reviewed date:07/30/2024 01:06:05 PM Interpretation: Performing Lab: Notes/Report: [facility] , Uric Acid 5.1 3.5-7.2 mg/dL Performing Lab: see note ML - [facility] LB Reason For Referral No Information Medications Medication SIG (Take, Route, Frequency, Duration) Notes Start Date End Date Status Allopurinol 300 MG 1 tablet Oral Once a day for 90 days Active Albuterol Sulfate (2.5 MG/3M L) 0.083% 3 mL as needed Inhalation every 6 hrs 07/26/2024 Active HYDROcodone-Acetaminophen 10-325 MG 1/2 - 1 Orally BID as needed for 30 days PRN 01/05/2025 Active Tamsulosin HCl 0.4 MG 1 tablet Oral BID for 90 days Active hydroCHLOROthiazide 12.5 MG TAKE 1 CAPSU LE BY Mouth Oral Once a day for 90 days Active Restoril 15 MG 1 capsule at bedtime as needed Orally Once a day for 30 days 03/14/2025 Active Simvastatin 20 MG TAKE 1 TABLET BY MOUTH EVERY DAY AT NIGHT for 90 Active oxyCODONE-Acetaminophen 5-32 5 MG 1 tablet as needed Orally every 4 hrs for 7 days 03/14/2025 Active Flonase Allergy Relief 50 MCG/ACT 1 spray in each nostril Nasally Once a day for 30 days 06/28/2024 Active Primidone 50 MG 1 tablet Oral Twice a day for 90 days Active Cyclobenzaprine HCl 10 MG 2 tablets Oral ly at bedtime for 90 days 09/06/2024 Active Colchicine 0.6 MG TAKE 1 TABLET BY MOUTH Oral every 2 hours as needed for pain. Max 2 a day for 90 days PRN Active Potassium Chloride ER 20 MEQ 1 tablet wi th food Orally Twice Daily for 90 days 05/31/2024 Active CeleBREX 200 MG 1 capsule with food Orally Once a day for 90 days 03/31/2024 Active Aspirin 81 MG 2 tablets Orally Onc e a day Active Lisinopril 40 MG TAKE 1 TABLET BY MOUTH EVERY DAY FOR 90 DAYS for 90 Active Immunizations Vaccine Route Administration Date Status Comme nts Flu, Fluad (98716) 65 yrs + High Dose Seasonal (8035-8324) IM Intramuscular 05/15/2023 Administered Hep A, Adult, 2 Dose Unknown 06/20/2005 Administered Hep A, Adult, 2 Dose Unknown 06/20/2005 Administered Hep B, Adult, Dose 1 Unknown 07/26/2005 Administered Hep B, Adult, Dose 1 Unknown 10/18/2005 Administered Pneumococcal (Prevnar 13) Unknown 05/22/2017 Administer ed Pneumococcal (Prevnar 13) Unknown 05/22/2017 Administer ed SARS-COV-2 (COVID 19 Moderna - Booster 0.25mL) Unknown 10/05/2020 Administered Tdap (Boostrix) Unknown 06/24/2019 Administered Tetanus toxoid, absorbed - historic Unknown 10/18/2005 Administered Zoster (Zostavax) Unknown 11/01/2013 Administered Zoster (Zostavax) Unknown 11/01/2013 Administered Social History Tobacco Use: Social History Observation Description Date Details (start date - stop date) Former Smoker 08/11/1969 - 08/11/1988 Tobacco Use/Smoking Question Answer Notes Patient is a former smoker When did you start smoking? 08/11/1969 When did you stop smoking? 08/11/1988 Alcohol Screen (Audit-C) Question Answer Notes Did you have a drink containing alcohol in the p ast year? No Points 0 Interpretation Negative AUDIT-C (Standard) Question Answer Notes Did you have a drink containing alcohol in the p ast year? No Points 0 Interpretation Negative Problems Problem Type SNOMED Code ICD Code Onset Dates Problem Status W/U Status Risk Notes Problem 636361186 Unspecified asthma, uncomplicated (J45.909) Active confirmed Problem Sebaceous cyst (849472601) Sebaceous cyst (L72.3) Active confirmed Problem [id number] Unilateral prima ry osteoarthritis, left knee (M17.12) Active confirmed Problem Chest pain (23982108) Chest pain (R07.9) Active confirmed Problem Hypertension (54986172) Hypertension (I10) Active confirmed Problem COPD - Chronic obstructive pulmonary disease (79067228) COPD (chronic obstructive pulmonary disease) (J44.9) Active confirmed Problem Coronary artery disease (90159720) CAD (coronary artery disease) (I25.10) Active confirmed Problem Pneumonia (076651565) Pneumonia (J18.9) Active confirmed Problem Vertigo (168968185) Vertigo (R42) Active confirmed Problem Insomnia (157336321) Insomnia (G47.00) Active confirmed Problem Acute exacerbation of chronic obstructive airways disease (240556285) COPD exacerbation (J44.1) Active confirmed Problem Acute bronchitis (26749392) Acute bronchitis (J20.9) Active confirmed Problem Acute sinusitis (01055130) Acute sinus infection (J01.90) Active confirmed Problem Essential tremor (024894105) Benign essential tremor (G25.0) Active confirmed Problem Right lower lobe pneumonia (817549436) Right lower lobe pneumonia (J18.9) Active confirmed Problem Acute bronchiolitis (3906967) Acute bronchiolitis (J21.9) Active confirmed Problem Finger laceratio n (S61.219A) Active confirmed Problem Basal cell carcinoma of back (347339000) Basal cell carcinoma of back (C44.519) Active confirmed Problem Leukocytosis (296715947) Elevated WBCs (D72.829) Active confirmed Problem Enthesopathy of knee (35959818) Knee bursitis (M70.50) Active confirmed Problem Generalized atherosclerosis (45581808) Atherosclerotic vascular disease (I70.90) Active confirmed Problem Essential hypertension (17804850) BP (high blood pressure) (I10) Active confirmed Problem Type II diabetes mellitus without complication (099000112) Controlled type 2 diabetes mellitus (E11.9) Active confirmed Problem Osteoarthritis of knee (330954129) DJD (degenerative joint disease) of knee (M17.10) Active confirmed Vital Signs Oximetry 97 % 11/22/2024 Blood pressure diastolic 80 mm Hg 02/04/2025 Height 72 in 02/04/2025 Blood pressure systolic 160 mm Hg 02/04/2025 Weight 263.0 lbs 10/13/2024 BMI 35.67 kg/m2 10/13/2024 Encounters Encounter Location Date Provider Diagnosis [facility] [address] [place] [address] 02/04/2025 Pasquale Hoy Acute bronchitis, unspecified organism J20.9 and DJD (degenerative joint disease) of knee M17.10 [facility] [address] [place] [address] 04/16/2024 Pasquale Hoy Knee bursitis M70.50 and Benign essential tremor G25.0 [facility] [address] [place] [address] 04/30/2024 Pasquale Hoy Knee bursitis M70.50 and DJD (degenerative joint disease) of knee M17.10 [facility] [address] [place] [address] 07/12/2024 Pasquale Hoy Hypertension I10 ; Benign essential tremor G25.0 ; Knee bursitis M70.50 ; Unilateral primary osteoarthritis, left knee M17.12 and COPD (chronic obstructive pulmonary disease) J44.9 [facility] [address] [place] [address] 07/30/2024 Pasquale Hoy Finger laceration S61.219A [facility] [address] [place] [address] 08/02/2024 Pasquale Hoy Knee bursitis M70.50 ; Right lower lobe pneumonia J18.9 ; Vertigo R42 and Acute sinus infection J01.90 [facility] [address] [place] [address] 08/09/2024 Pasquale Hoy Acute bronchitis J20 .9 and Finger laceration S61.219A [facility] [address] [place] [address] 10/13/2024 Pasquale Hoy Knee bursitis M70.50 ; Acute bronchiolitis J21.9 and Insomnia G47.[address] [address] 11/22/2024 Pasquale Hoy Acute bronchitis, unspecified organism J20.9 [facility] [address] [place] [address] 07/06/2024 Pasquale Connory Encounter for Medic are annual wellness exam Z00.00 [facility] [address] [place] [address] 04/01/2024 Pasquale Connory [facility] [address] [place] [address] 04/04/2024 Pasquale Connory [facility] [address] [place] [address] 04/15/2024 Pasquale Connory [facility] [address] [place] [address] 04/30/2024 Pasquale Connory [facility] [address] [place] [address] 05/17/2024 Pasquale Hoy Arthralgia M25.50 [facility] [address] [place] [address] 05/31/2024 Pasquale Nikolasy [facility] [address] [place] [address] 06/28/2024 Pasquale Florentin [facility] [address] [place] [address] 06/28/2024 Pasquale Nikolasy [facility] [address] [place] [address] 06/30/2024 Pasquale Lerma [facility] [address] [place] [address] 07/12/2024 Pasquale Lerma [facility] [address] [place] [place] [address] 07/21/2024 Pasquale Hoy Hypertension I10 [facility] [address] [place] [place] [address] 07/25/2024 Pasquale Lerma [facility] [address] [place] [place] [address] 07/26/2024 Pasquale emma [facility] [address] [place] [address] 07/30/2024 Pasquale Lerma [facility] [address] [place] [address] 07/30/2024 Pasquale Hoy Hypertension I10 [facility] [address] [place] [address] 09/06/2024 Pasquale Hoy Knee bursitis M70.50 [facility] [address] [place] [address] 09/21/2024 Pasquale Hoy Hypertension I10 [facility] [address] [place] [address] 09/28/2024 Pasquale Lerma [facility] [address] [place] [address] 10/03/2024 Pasquale Hoy [facility] [address] [place] [facility] [place] [address] 10/06/2024 Pasquale Connory [facility] [address] [facility] [place] [address] 10/14/2024 Pasquale Hoy Knee bursitis M70.50 [facility] [address] [place] [facility] [place] [address] 10/21/2024 Pasquale Connory [facility] [address] [facility] [place] [address] 11/08/2024 Pasquale Hoy Knee bursitis M70.50 [facility] [address] [place] [facility] [place] [address] 11/09/2024 Pasquale Hoy Hypertension I10 [facility] [address] [facility] [place] [address] 11/16/2024 Pasquale Hoy Knee bursitis M70.50 [facility] [address] [place] [facility] [place] [address] 12/08/2024 Pasquale Hoy Acute bronchitis, unspecified organism J20.9 ; Knee bursitis M70.50 and Acute bronchiolitis J21.9 [facility] [address] [facility] [place] [address] 12/27/2024 Pasquale [facility] [address] [facility] [place] [address] 12/27/2024 Pasquale Hoy [facility] [address] [place] [facility] [place] [address] 01/05/2025 Pasquale Hoy Hypertension I10 [facility] [address] [place] [facility] [place] [address] 03/14/2025 Pasquale Hoy Acute bronchitis, unspecified organism J20.9 and DJD (degenerative joint disease) of knee M17.10 Assessments Encounter Date Diagnosis (ICD Code) Assessment Notes Treatment Notes Treatment Clinical Notes Section Notes 04/16/2024 Knee bursitis (ICD-10 - M70.50) 04/16/2024 Benign essential tremor (ICD-10 - G25.0) 04/30/2024 Knee bursitis (ICD-10 - M70.50) 04/30/2024 DJD (degenerative joint disease) of knee (ICD-10 - M17.10) 07/06/2024 Encounter for Medicare annual wellness exam (ICD-10 - Z00.00) 07/12/2024 Hypertension (ICD-10 - I10) 07/12/2024 Benign essential tremor (ICD-10 - G25.0) 07/30/2024 Finger laceration (ICD-10 - S61.219A) 08/02/2024 Knee bursitis (ICD-10 - M70.50) 08/02/2024 Right lower lobe pneumonia (ICD-10 - J18.9) 08/09/2024 Acute bronchitis (ICD-10 - J20.9) 08/09/2024 Finger laceration (ICD-10 - S61.219A) 10/13/2024 Knee bursitis (ICD-10 - M70.50) 10/13/2024 Acute bronchiolitis (ICD-10 - J21.9) 05/17/2024 Arthralgia (ICD-10 - M25.50) 07/21/2024 Hypertension (ICD-10 - I10) 07/30/2024 Hypertension (ICD-10 - I10) 09/06/2024 Knee bursitis (ICD-10 - M70.50) 09/21/2024 Hypertension (ICD-10 - I10) 10/14/2024 Knee bursitis (ICD-10 - M70.50) 11/08/2024 Knee bursitis (ICD-10 - M70.50) 11/09/2024 Hypertension (ICD-10 - I10) 11/16/2024 Knee bursitis (ICD-10 - M70.50) 12/08/2024 Acute bronchitis, unspecified organism (ICD-10 - J20.9) 11/22/2024 Acute bronchitis, unspecified organism (ICD-10 - J20.9) Rest and drink more liquids, especially water. You may use a humidifier or vaporizer to help keep the drainage moist. Xkhn-ftf-uufmwjv Nasal Saline may help the stuffy and runny nose. Use Ibuprofen and or Tylenol as needed for fever, chills, body aches or pain. Children 5 years old should not be given liei-xkq-wrjppmv cough and cold medications such as guaifenesin and dextromethorphan. If you're over age 5, you may try rnos-sqm-jemqxxe cold medications such as guaifenesin and dextromethorphan, [...] the emergency room or call 911 02/04/2025 Acute bronchitis, unspecified organism (ICD-10 - J20.9) Rest and drink more liquids, especially water. You may use a humidifier or vaporizer to help keep the drainage moist. Avvu-wzr-tqijvyq Nasal Saline may help the stuffy and runny nose. Use Ibuprofen and or Tylenol as needed for fever, chills, body aches or pain. Children 5 years old should not be given mjws-yal-dsbjzfb cough and cold medications such as guaifenesin and dextromethorphan. If you're over age 5, you may try ybap-hql-ejzbwkl cold medications such as guaifenesin and dextromethorphan, [...] to the emergency room or call 911 01/05/2025 Hypertension (ICD-10 - I10) 03/14/2025 Acute bronchitis, unspecified organism (ICD-10 - J20.9) 03/14/2025 DJD (degenerative joint disease) of knee (ICD-10 - M17.10) 12/08/2024 Knee bursitis (ICD-10 - M70.50) 10/13/2024 Insomnia (ICD-10 - G47.00) 08/02/2024 Vertigo (ICD-10 - R42) 07/12/2024 Knee bursitis (ICD-10 - M70.50) 07/12/2024 Unilateral primary osteoarthritis, left knee (ICD-10 - M17.12) 08/02/2024 Acute sinus infection (ICD-10 - J01.90) 12/08/2024 Acute bronchiolitis (ICD-10 - J21.9) 02/04/2025 DJD (degenerative joint disease) of knee (ICD-10 - M17.10) 07/12/2024 COPD (chronic obstructive pulmonary disease) (ICD-10 - J44.9) 02/04/2025 Other Recommended to rest and use a heating pad on the area. Take NSAIDs for pain as needed Plan Of Treatment Pending Test Test Name Order Date CMP (COMPLETE METABOLIC PANEL) 3 CMP (COMPLETE METABOLIC PANEL) 4 CMP (COMPLETE METABOLIC PANEL) 4 HEMOGLOBIN A1C (GLYCO) 07/12/2024 HEMOGLOBIN A1C (GLYCO) 04/23/2023 INSULIN, TOTAL 04/23/2023 INSULIN, TOTAL 07/12/2024 LIPID PANEL (CHOL/TRIG/HDL/LDL) 07/12/20 24 LIPID PANEL (CHOL/TRIG/HDL/LDL) 04/23/20 23 CBC WITH DIFF 04/23/2023 CBC WITH DIFF 07/12/2024 CBC WITH DIFF 08/02/2024 PSA, PROSTATE-SPECIFIC ANTIGEN 3 URIC ACID 07/12/2024 XR Chest PA and Lateral (Routine CXR) * 10/01/2023 XR Chest PA and Lateral (Routine CXR) * 12/15/2023 CARDIO Stress Test - Lexiscan Nuclear Cardiolyte Stress Test 08/26/2023 Cardiolyte Stress Test 08/20/2023 PSA, TOTAL 07/12/2024 High Sensitivity Troponin 10/01/2023 BNP 07/12/2024 CULTURE SPUTUM 08/02/2024 CULTURE SPUTUM 12/15/2023 CULTURE SPUTUM 03/31/2024 CULTURE SPUTUM 11/22/2024 SPUTUM GRAM STAIN 11/22/2024 SPUTUM GRAM STAIN 03/31/2024 SPUTUM GRAM STAIN 12/15/2023 SPUTUM GRAM STAIN 10/01/2023 SPUTUM GRAM STAIN 08/02/2024 XR CHEST 2 V 08/02/2024 XR CHEST 2 V 03/31/2024 XR KNEE LT 3V 07/12/2024 XR KNEE RT 3V 07/12/2024 THYROID PANEL (T4/TSH/FREE T3) 3 THYROID PANEL (T4/TSH/FREE T3) 4 THYROID PANEL (T4/TSH/FREE T3) 4 Insurance Providers Payer Name Payer Address Payer Phone Subscriber Number Group Number Insured Name Patient Relationship to Insured Coverage Start Date Coverage End Date MEDICARE RAILROAD [address] [address] [place], [place] [id number] Tom Aparicio Self - patient is the insured 7 [employer] TOTAL CHOICE MEDICARE SUPPLEMENT [address] [address] [place] [address] [id number] PLAN F Tom Aparicio Self - patient is the insured 7 Medications Administered Medication Instructions Date of Administration Dosage Notes Ceftriaxone 1 gram 03/31/2024 1 g Dexamethasone, 4mg/mL 11/22/2024 8 mg Kenalog-40 06/13/2023 120 mg Kenalog-40 03/31/2024 80 mg Kenalog-40 04/16/2024 120 mg Kenalog-40 04/30/2024 80 mg 80 Ketorolac Tromethamine 04/30/2024 30 mg 30 Ketorolac Tromethamine 02/04/2025 60 mg Orphenadrine Citrate 02/04/2025 60 mg Triamcinolone 40 mg/ml 08/09/2024 120 mg Triamcinolone 40 mg/ml 02/04/2025 120 mg Medical (General) History Medical History History ICD Code Knee bursitis M70.50 Basal cell carcinoma of back C44.519 Chest pain R07.9 Benign essential tremor G25.0 Near syncope R55 Dizziness and giddiness R42 Chronic back pain 724.5 DJD (degenerative joint disease) of knee M17.10 Bladder spasm N32.89 Atherosclerotic vascular disease I70.90 Controlled type 2 diabetes mellitus E11. 9 Carcinoma of skin C44.99 Hypertension I10 Dyspnea R06.00 Kidney stones N20.0 Opioid withdrawal F11.23 Ruptured tendon meniscus tear tear acetabular labrum basal cell cheek, nose, back, shoulder Surgical History Surgery Date(Month/Year) Laser eye surgery, left 01/02 Colonoscopy 11/08/2013 plastic surgery to nose x3 Cystoscopy-multiple Lithotripsy x4 PILES Hernia Repair excision of 8 skin cancer lesions Knee arthroscopy left Partial knee arthroplasty patella, right 07/24/15 Hospitalization History Reason Date(Month/Year) Pneumonia Spring 2023 chest pain 08/2022 see above
--- NOTE | 2025-04-01 07:44 | XR_ITS ---
The [address] [address] Patient Name: RIZWAN LOCK MRN: [id number] date: 1950 Sex: M Assigned Patient Location: [facility] Current Patient Location: [facility] Accession/Order Number: [id number] Exam Date: 04/01/2025 07:47 Report Date: 04/01/2025 12:08 At the request of: MICKI MCRAE MD Procedure: XR abdomen 1V Single view KUB INDICATION: Kidney stones COMPARISON: CT abdomen pelvis 02/01/2025 FINDINGS: Punctate left sided renal calculus. No additional radiopaque calcific densities overlying the kidney shadows or psoas muscles. Right pelvic phleboliths noted. Nonspecific bowel gas pattern. Degenerative changes of the osseous structures. XR/XR abdomen 1V IMPRESSION: Punctate left-sided nephrolithiasis. Impression dictated by: Aguila Guerrero M.D. 04/01/2025 12:08 PM Dictation Location: [place] [address] Electronically authenticated by: [id number] Y Date: 04/01/2025 12:08
== END 2025-04-01 07:39 | disposition home or self-care (01) ==
LOC: RAD 07:40
PROVIDERS: PCP Family Medicine; Visit Provider Urology
DX: N20.0 Calculus of kidney (principal)
CPT/HCPCS: 74018

== ENCOUNTER 2025-05-25 07:25 | Outpatient (OUT) | payer MEDICARE, OTHER, SELFPAY ==
--- OUTSIDE RECORDS SUMMARY | 2025-05-17 07:15 | XMS_ITS ---
Author Organization [facility] in [place] Address [address] [place] [address] Care Team Providers Care Assistant Professor Of Biochemistry Name Role Phone Pasquale Lerma Primary Care Provider Allergies No Known Allergies REASON FOR VISIT 6 m med check- signed CSA Medications Medication SIG (Take, Route, Frequency, Duration) Notes Start Date End Date Status Potassium Chloride ER 20 MEQ 1 tablet wi th food Orally Twice Daily; Duration: 90 days 05/31/2024 Active Flonase Allergy Relief 50 MCG/ACT 1 spray in each nostril Nasally Once a day; Duration: 30 days 06/28/2024 Active hydroCHLOROthiazide 12.5 MG TAKE 1 CAPSU LE BY Mouth Oral Once a day; Duration: 90 days Active HYDROcodone-Acetaminophen 10-325 MG 1/2 - 1 Orally BID as needed; Duration: 30 days PRN 01/05/2025 Active Lisinopril 40 MG TAKE 1 TABLET BY MOUTH EVERY DAY; Duration: 90 Active Aspirin 81 MG 2 tablets Orally Onc e a day Active CeleBREX 200 MG 1 capsule with food Orally Once a day; Duration: 90 days 03/31/2024 Active Colchicine 0.6 MG TAKE 1 TABLET BY MOUTH Oral every 2 hours as needed for pain. Max 2 a day; Duration: 90 days PRN Active Cyclobenzaprine HCl 10 MG 2 tablets Oral ly at bedtime; Duration: 90 days 09/06/2024 Active oxyCODONE-Acetaminophen 5-32 5 MG 1 tablet as needed Orally TID; Duration: 30 days 05/17/2025 Active Allopurinol 300 MG 1 tablet Oral Once a day; Duration: 90 days Active Restoril 15 MG 1 capsule at bedtime as needed Orally Once a day; Duration: 30 days 05/17/2025 Active Tamsulosin HCl 0.4 MG 1 tablet Oral BID; Duration: 90 days Active Albuterol Sulfate (2.5 MG/3M L) 0.083% 3 mL as needed Inhalation every 6 hrs 07/26/2024 Active Simvastatin 20 MG TAKE 1 TABLET BY MOUTH EVERY DAY AT NIGHT; Duration: 90 Active Primidone 50 MG 1 tablet Oral Twice a day; Duration: 90 days Active Immunizations Vaccine Route Administration Date Status Comme nts Flu, Fluad (90030) 65 yrs and older, single-dose syringe (5841-4267) IM Intramuscular 05/17/2025 Administered Social History Tobacco Use: Social History Observation Description Date Details (start date - stop date) Former Smoker 08/11/1969 - 08/11/1988 Tobacco Use/Smoking Question Answer Notes Patient is a former smoker When did you start smoking? 08/11/1969 When did you stop smoking? 08/11/1988 Problems Problem Type SNOMED Code ICD Code Onset Dates Problem Status W/U Status Risk Notes Problem Lumbar radiculopathy (117325441) Lumbar radiculopathy (M54.16) Active confirmed Vital Signs Weight 288.8 lbs 05/17/2025 Height 72 in 05/17/2025 Blood pressure systolic 172 mm Hg 05/17/20 25 Blood pressure diastolic 80 mm Hg 025 BMI 39.16 kg/m2 05/17/2025 Encounters Encounter Location Date Provider Diagnosis [facility] [address] [place] [address] 05/17/2025 Pasquale Lerma Encounter for immunization Z23 ; Hypertension I10 ; Benign essential tremor G25.0 ; Controlled type 2 diabetes mellitus E11.9 ; CAD (coronary artery disease) I25.10 and Lumbar radiculopathy M54.16 Assessments Encounter Date Diagnosis (ICD Code) Assessment Notes Treatment Notes Treatment Clinical Notes Section Notes 05/17/2025 Encounter for immunization (ICD-10 - Z23) 05/17/2025 Hypertension (ICD-10 - I10) up a bit here - not badk 05/17/2025 Benign essential tremor (ICD-10 - G25.0) stabel wih meds 05/17/2025 Controlled type 2 diabetes mellitus (ICD-10 - E11.9) following diet 05/17/2025 CAD (coronary artery disease) (ICD-10 - I25.10) no cp 05/17/2025 Lumbar radiculopathy (ICD-10 - M54.16) Plan Of Treatment Medication Medication Name Sig Start Date Stop Date Notes oxyCODONE-Acetaminophen 5-32 5 MG 1 tablet as needed Orally TID; Duration: 30 days 05/17/2025 Restoril 15 MG 1 capsule at bedtime as needed Orally Once a day; Duration: 30 days 05/17/2025 Treatment Notes Assessment Notes Hypertension up a bit here - not badk Benign essential tremor stabel wih meds Controlled type 2 diabetes mellitus foll owing diet CAD (coronary artery disease) no cp Pending Test Test Name Order Date HEMOGLOBIN A1C (GLYCO) 05/17/2025 LIPID PANEL (CHOL/TRIG/HDL/LDL) 05/17/20 THYROID PANEL (T4/TSH/FREE T3) PSA, SCREENING 05/17/2025 CMP (COMP MET [place]) w/eGFR CKD-EPI 2024 CBC WITH DIFF 05/17/2025 Progress Notes * Tom APARICIO WDOB:1950 (75 yo M)Acc No.[id number]:05/17/2025 Progress Note Patient: Tom VALERIO Provider: Daniele Lerma ([facility])MD :1950 A ge:75 Y S ex:Male Date:05/17/2025 Address:[address] [place], [place] [id number] Check In:11:02 AM ESTCheck O ut:11:56 AM EST Subjective: * Chief Complaints: * 1 . 6 m med check- signed CSA. * HPI: G eneral: No chest pain - no cough. * ROS: E ENT: hearing changes d enies. v isual changes d enies.?non-healing mouth sores d enies. s wollen glands or neck lumps d enies. h oarseness d enies. s ore throat d enies. d ifficulty swallowing d enies. n ose bleeds d enies. n juan david congestion d enies. e ar ache d enies. e ar discharge?denies. r inging in ears d enies. l ight sensitivity d enies. e ye pain d enies. b lurring d enies. e ye irritation d enies. d ouble vision d enies.?vision loss d enies. G eneral/Constitutional: Sweats: D enies. F atigue d enies. S leep problems d enies. A norexia d enies. M alaise d enies. W eight loss d enies.?Fatigue or Weakness d enies. F ever or Chills d enies. C ardiovascular: Shortness of Breath w/lying flat d enies. L ightheadedness/dizziness d enies. C hest tightness/ heavy pressure d enies. S welling of legs, ankles, or feet d enies. W aking up with shortness of breath d enies. C hest pain denies. P alpitations d enies. W eight gain d enies. R espiratory: Chronic or frequent cough d enies. C oughing up blood?denies. D ifficulty breathing d enies. P roductive cough d enies. S noring?denies. S hortness of breath that awakens from sleep (PND) d enies. C hest pain d enies. S putum production d enies. W heezing d enies. M usculoskeletal: Joint pain d enies. J oint Fluid d enies. B ack pain d enies. K nee pain d enies. N nirmal pain d enies. J oint Stiffness d enies. M uscle cramps d enies. W eakness of muscles d enies. A rthritis d enies. M uscle aches d enies. P ain in shoulder(s) d enies. S wollen joints d enies. * Active Problem List I10 Hypertension Modified On:06/13/2023W/U Status:confirmed G25.0 Benign essential delfina mor Modified On:04/23/2023W/U Status:confirmed C44.519 Basal cell carcinoma of back Modified On:02/06/2023 Status:confirmed M70.50 Knee bursitis Modified On:02/14/2023 Status:confirmed I70.90 Atherosclerotic vasc ular disease Modified On:02/06/2023 Status:confirmed E11.9 Controlled type 2 di abetes mellitus Modified On:02/14/2023 Status:confirmed M17.10 DJD (degenerative kisha int disease) [...] Modified On:07/12/2024 Status:confirmed S61.219A Finger laceration Modified On:07/30/2024 Status:confirmed J20.9 Acute bronchitis Modified On:08/09/2024 Status:confirmed J44.1 COPD exacerbation Modified On:09/16/2024U Status:confirmed G47.00 Insomnia Modified On:10/13/2024W/U Status:confirmed M54.16 Lumbar radiculopathy Modified On:05/17/2025W/U Status:confirmed * Medical History: K nee bursitis, Basal cell carcinoma of back, Chest pain, Benign essential tremor, Near syncope, Dizziness and giddiness, Chronic back pain, DJD (degenerative joint disease) of knee, Bladder spasm, Atherosclerotic vascular disease, Controlled type 2 diabetes mellitus, Carcinoma of skin, Hypertension, Dyspnea, Kidney stones, Opioid withdrawal, Ruptured tendon, Meniscus tear, Tear acetabular labrum, Basal cell cheek, nose, back, shoulder. * Surgical History: P artial knee arthroplasty patella, right 07/24/15, Knee arthroscopy left , excision of 8 skin cancer lesions , Hernia Repair , PILES , Lithotripsy x4 , Cystoscopy- multiple , plastic surgery to nose x3 , Colonoscopy 11/08/2013, Laser eye surgery, left 01/02. * Hospitalization/Major Diagno stic Procedure: s ee above , chest pain 08/2022, Pneumonia Spring 2023. * Family History: F ather: , prostate, diagnosed with Cancer, Diabetes, Hypertension. M other: , Breast cancer, diagnosed with Cancer, Arthritis. S ister(s): alive. S on(s): alive. Daughter(s): alive. 1 sister(s) - healthy. 1 son(s) , 1 daughter(s) - healthy. . * Social History: T obacco Use: T obacco Use/Smoking P atient is a f ormer smoker W hen did you start smoking? 0 08/11/1969 W hen did you stop smoking? 0 08/11/1988 * Medications: T aking Albuterol Sulfate (2.5 MG/3ML) 0.083% Nebulization Solution 3 mL as needed Inhalation every 6 hrs , Taking Allopurinol 300 MG Tablet 1 tablet Oral Once a day , Taking Aspirin 81 MG Tablet Chewable 2 tablets Orally Once a day , Taking CeleBREX 200 MG Capsule 1 capsule with food Orally Once a day , Taking Colchicine 0.6 MG Tablet TAKE 1 TABLET BY MOUTH Oral every 2 hours as needed for pain. Max 2 a day , Notes to Pharmacist: PRN, Taking Cyclobenzaprine HCl 10 MG Tablet 2 tablets Orally at bedtime , Taking Flonase Allergy Relief(Fluticasone Propionate) 50 MCG/ACT Suspension 1 spray in each nostril Nasally Once a day , Taking hydroCHLOROthiazide 12.5 MG Capsule TAKE 1 CAPSULE BY Mouth Oral Once a day , Taking HYDROcodone- Acetaminophen 10-325 MG Tablet 1/2 - 1 Orally BID as needed , Notes to Pharmacist: PRN, Taking Lisinopril 40 MG Tablet TAKE 1 TABLET BY MOUTH EVERY DAY , Taking oxyCODONE-Acetaminophen 5-325 MG Tablet 1 tablet as needed Orally every 4 hrs , Taking Potassium Chloride ER 20 MEQ Tablet Extended Release 1 tablet with food Orally Twice Daily , Taking Primidone 50 MG Tablet 1 tablet Oral Twice a day , Taking Restoril(Temazepam) 15 MG Capsule 1 capsule at bedtime as needed Orally Once a day , Taking Simvastatin 20 MG Tablet TAKE 1 TABLET BY MOUTH EVERY DAY AT NIGHT , Taking Tamsulosin HCl 0.4 MG Capsule 1 tablet Oral BID , Discontinued Amoxicillin-Pot Clavulanate 875-125 MG Tablet 1 tablet Orally every 12 hrs , Medication List reviewed and reconciled with the patient * Allergies: N .K.D.A. Objective: * Vitals: W t:288.8lbs, Ht: 72 in, BP:172/80mm Hg, BMI:39.16Index, Ht-cm: 182.88 cm, Wt-k kg. * Examination: P hysical Exam: GENERAL: w ell developed, well nourished, in no acute distress. HEAD: n ormocephalic/atraumatic. EYES: p upils equal, round and reactive to light, conjunctivae and sclerae normal. EARS: n o deformity or lesion of external ear, canals and TM appear normal bilaterally, TM's intact, not inflamed with normal light reflex, hearing grossly normal to conversational speech. NOSE: n o deformity, discharge, inflammation, or lesions.? MOUTH: m ucous membranes moist, normal oropharynx and posterior pharynx without lesions or exudates, tongue normal, dentition normal. NECK: n nirmal supple, no masses or palpable cervical nodes, trachea midline, thyroid without nodules, masses, tenderness, or enlargement. CHEST: n o chest wall deformity, no chest wall tenderness.? LUNGS: n ormal respiratory effort and clear to auscultation, no wheezes, rales, or rhonchi, good air exchange. CARDIO: r egular rate and rhythm, normal S1 and S2, nor murmur, rub, or gallop. PULSES: n ormal capillary refill. ABDOMEN: s oft, non-distended, non-tender, no masses. MUSCULOSKELETAL: n o deformity or scoliosis noted, normal range of motion, joints normal, no erythema, edema, effusion, or ecchymosis. EXTREMITY: n o clubbing, cyanosis, edema, or deformity with normal ROM in both upper and lower bilateral extremities. NEUROLOGIC: g rossly normal. SKIN: n o rashes, ulcerations, or suspicious lesions. LYMPH NODES: n o cervical adenopathy, nodes normal. MENTAL STATUS: a lert and oriented x3, normal mood and affect. Assessment: * Assessment: 1. H ypertension - I10 (Primary) 2 . E ncounter for immunization - Z23 3 . B enign essential tremor - G25.0 4 . C ontrolled type 2 diabetes mellitus - E11.9 5 . C AD (coronary artery disease) - I25.10 ?6. L umbar radiculopathy - M54.16 Plan: * Treatment: 2. E ncounter for immunization L AB: HEMOGLOBIN A1C (GLYCO) L AB: LIPID PANEL (CHOL/TRIG/HDL/LDL) L AB: THYROID PANEL (T4/TSH/FREE T3) L AB: PSA, SCREENING L AB: CMP (COMP MET [place]) w/eGFR CKD-EPI L AB: CBC WITH DIFF 3. B enign essential tremor L AB: HEMOGLOBIN A1C (GLYCO) L AB: LIPID PANEL (CHOL/TRIG/HDL/LDL) L AB: THYROID PANEL (T4/TSH/FREE T3) L AB: PSA, SCREENING L AB: CMP (COMP MET [place]) w/eGFR CKD-EPI L AB: CBC WITH DIFF Notes: stabel wih meds 4. C ontrolled type 2 diabetes mellitus L AB: HEMOGLOBIN A1C (GLYCO) L AB: LIPID PANEL (CHOL/TRIG/HDL/LDL) L AB: THYROID PANEL (T4/TSH/FREE T3) L AB: PSA, SCREENING L AB: CMP (COMP MET [place]) w/eGFR CKD-EPI L AB: CBC WITH DIFF Notes: following diet 5. C AD (coronary artery disease) L AB: HEMOGLOBIN A1C (GLYCO) L AB: LIPID PANEL (CHOL/TRIG/HDL/LDL) L AB: THYROID PANEL (T4/TSH/FREE T3) L AB: PSA, SCREENING L AB: CMP (COMP MET [place]) w/eGFR CKD-EPI L AB: CBC WITH DIFF Notes: no cp 6. L umbar radiculopathy Refill Restoril Capsule, 15 MG, 1 capsule at bedtime as needed, Orally, Once a day, 30 days, 30 Capsule, Refills 0; R efill oxyCODONE-Acetaminophen Tablet, 5-325 MG, 1 tablet as needed, Orally, TID, 30 days, 90 Tablet, Refills 0. * Immunizations: Flu, Fluad (35611) 65 yrs and older, single-dose syringe () : 0.5 mL (Route: Intramuscular) given by SONAL Ma on Left Deltoid (Encounter for immunization) * Procedure Codes: 9 0653 FLU VACCINE ADJUVANT IM, G0008 ADMIN. INFLUENZA, 3079F DIAST BP 80-89 MM HG, 3077F SYST BP > OR = 140 MM HG * Preventive Medicine: Screenings/Counseling: B DC ACTION PLAN Above Normal BMI Follow-up D ietary management education, guidance, and counseling * * Sign off status: Completed Visit Status: C HK (Check Out) true * Provider: Daniele Lerma ([facility])MD Date: Generated for Printi ng/Faxing/eTransmitting on: 07:29 AM EDT History and Physical Notes * HPI (History of Present Illness) Category Sub-Category Detail Notes Category Not es General No chest pain - no cough Examination Category Sub-Category Detail Notes Category Not es Physical Exam GENERAL: well developed, well nourished, in no acute distress HEAD: normocephalic/atraum atic EYES: pupils equal, round and reactive to light, conjunctivae and sclerae normal EARS: no deformity or lesi on of external ear, canals and TM appear normal bilaterally, TM's intact, not inflamed with normal light reflex, hearing grossly normal to conversational speech NOSE: no deformity, discha rge, inflammation, or lesions MOUTH: mucous membranes dev st, normal oropharynx and posterior pharynx without lesions or exudates, tongue normal, dentition normal NECK: neck supple, no mass es or palpable cervical nodes, trachea midline, thyroid without nodules, masses, tenderness, or enlargement CHEST: no chest wall deform ity, no chest wall tenderness LUNGS: normal respiratory e ffort and clear to auscultation, no wheezes, rales, or rhonchi, good air exchange CARDIO: regular rate and rhy thm, normal S1 and S2, nor murmur, rub, or gallop PULSES: normal capillary ref ill ABDOMEN: soft, non-distended, non-tender, no masses RECTAL: MUSCULOSKELETAL: no deformity or scol iosis noted, normal range of motion, joints normal, no erythema, edema, effusion, or ecchymosis EXTREMITY: no clubbing, cyanosi s, edema, or deformity with normal ROM in both upper and lower bilateral extremities NEUROLOGIC: grossly normal SKIN: no rashes, ulceratio ns, or suspicious lesions LYMPH NODES: no cervical adenopat hy, nodes normal MENTAL STATUS: alert and oriented x 3, normal mood and affect
--- OUTSIDE RECORDS SUMMARY | 2025-05-25 07:29 | XMS_ITS | CCD ---
Author Organization [facility] Care Team Providers Care Student Records Coordinator Name Role Phone MD Marielle Lerma Primary Care Provider [phone] MD Micki Zeng Attending Provider Marielle Lerma Primary Care Physician [phone] THOR, DR SWEET Admitting Unavailable ZENG, DR [...] CARLOS Consulting Unavailable LUE .NADEGE Consulting Unavailable NARDINIBEHZAD Consulting Unavailable ASHLEY, DR PALOMARES Primary Care Unavailable ASHLEY, DR PALOMARES Consulting Unavailable NADERER, DR ERMA Garcia Admitting Unavailable NADERER, DR ERMA Garcia Attending Unavailable NADERER, DR ERMA Garcia Consulting Unavailable ANNITA, RUDDY Consulting Unavailable LUE .NADEGE Consulting Unavailable MCCORNAJAEL, BEHZAD Consulting Unavailable THOR, DR SWEET Admitting Unavailable THOR, DR SWEET Attending Unavailable ASHLEY, DR PALOMARES Primary Care Unavailable THOR, DR SWEET Consulting Unavailable ASHLEY, DR PALOMARES Primary Care Unavailable RUDDY ARIZA Admitting Unavailable RUDDY ARIZA Attending Unavailable RUDDY ARIZA Consulting Unavailable ACACIA CAST Consulting Unavailable TRACEY WILLETT Attending Unavailable Marielle Lerma MD Primary Care Provider [phone] Marielle Lerma Attending Unavailable Marielle Lerma Admitting Unavailable Micki ZENG Attending Unavailable Micki ZENG Attending Unavailable Allergies Allergy Classification Reported Allergen(s) Allergy Type Date of Onset Reaction(s) Facility (1 source) No Known Medication Allergies; Translations: [No Known Medication Allergies] Propensity to adverse reactions (disorder) [facility] Repository Medications Current Medications Medication [...] by mouth in the morning HYDROcodone-acetami nophen ([place]) 10-325 MG tablet Take 1 tablet by mouth in the morning and 1 tablet before bedtime. 12/29/2023 Active Start: 05-29-2021 take 1 tablet by isa th once daily acetaminophen-hydrocodone 325 mg-5 mg or al tablet 1 tab(s), Oral, Daily pain, Refill(s) 0 Start Date: 05/29/21 Status: Ordered Start: 09-07-2019 End: 10-12-2019 take 1 tablet by mouth every four to six hours Hydrocodone-Acetaminophen ([place]) 5-325 mg tablet Active 1 TAB PO EVERY 4-6 HOURS 40 7 September 28, 2019 1:45pm acetaminophen 325 mg / oxyCODONE hydrochloride 5 mg oral tablet (2 sources) Opioid Agonist Start: 04-15-2025 acetaminophen- oxycodone 325 mg-5 mg Tab 1 tab(s), Refill(s) 0 Start Date: 04/15/25 Status: Ordered Repeat number: 1 Start: 01-02-2018 End: 09-02-2019 take 1 tablet by mouth three times daily Oxycodone-Acetaminophen Discontinued 1 T AB PO Three times daily January 02, 2018 9:35am September 02, 2019 12:41pm allopurinol 300 mg oral tablet (8 sources) Xanthine Oxidase Inhibitor Start: 11-27-2023 take 1 tablet by mouth once daily allopurinol 300 mg Tab 300 mg = 1 tab(s), Oral, Daily, # 90 tab(s), Refills(s) 3, Pharmacy: [facility]/pharmacy #[id number], 180, cm, 04/11/23 11:56:00 EDT, Height/Length Dosing, 127, kg, 04/11/23 11:56:00 EDT, Weight Dosing Start Date: 03/02/24 Status: Ordered Quantity: 90.0 Unit: tab(s) Repeat number: 4 Start: 03-10-2023 take 1 tablet by [facility] once daily allopurinol 300 mg Tab 300 mg = 1 tab(s), Oral, Daily, # 90 tab(s), Refills(s) 3, Pharmacy: [facility]/pharmacy #[id number], 180, cm, 08/19/22 9:50:00 EST, Height/Length Dosing, 136.2, kg, 08/19/22 9:50:00 EST, Weight Dosing Start Date: 03/10/23 Status: Ordered Start: 02-25-2022 allopurinol 30 0 mg Tab 150 mg = 0.5 tab(s), Oral, Daily, # 30 tab(s), Refills(s) 11, Pharmacy: [id number], 180, cm, 02/25/22 14:22:00 EDT, Height/Length Dosing, 135, kg, 02/25/22 14:22:00 EDT, Weight Dosing Start Date: 02/25/22 Status: Ordered aspirin 81 mg chewable tablet (5 sources) Platelet Aggregation Inhibitor, Nonsteroidal Anti-inflammatory Drug Start: 04-16-2024 aspirin 81 mg Callie w Tab 162 mg = 2 tab(s), Chewed, BID Start Date: 04/16/24 Status: Ordered Repeat number: 1 Start: 02-10-2019 take 2 tablets by [facility] once daily aspirin 81 mg oral tablet 162 mg = 2 tab(s), Oral, Daily, Refills(s) 0 Start Date: 02/10/19 Status: Ordered Start: 01-02-2018 take 1 tablet by [facility] twice daily Aspirin (Aspir-81) 81 mg Tablet,Delayed Release (Dr/Ec) Active 1 TAB PO Twice daily January 02, 2018 9:35am Zyrtec (1 source) Histamine-1 Receptor Antagonist Start: 04-15-2025 Zyrtec 5 mg, Daily, Refills(s) 0 Start Date: 04/15/25 Status: Ordered Repeat number: 1 clindamycin 0.01 mg/mg topical gel (1 source) Lincosamide Antibacterial Start: 05-25-2021 Clindagel 1% topical gel 1 keke, Topical, BID, Refill(s) 0 Start Date: 05/25/21 Status: Ordered cloNIDine hydrochloride 0.1 mg oral tablet (8 sources) Central alpha-2 Adrenergic Agonist Start: 04-23-2021 take 1 mg by mouth twice daily cloNIDine 0.1 mg tab mg tab(s), Oral, BID, Refills(s) 0 Start Date: 04/23/21 Status: Ordered Repeat number: 1 colchicine 0.6 mg oral tablet (8 sources) Start: 05-25-2021 take 1 tablet by mouth twice daily colchicine 0.6 mg Tab 0.6 mg = 1 tab(s), Oral, BID, Refills(s) 0 Start Date: 05/25/21 Status: Ordered Repeat number: 1 take 1 capsule by [facility] twice daily as needed Colchicine 0.6 MG [...] cap.. Active hydroCHLOROthiazide 12.5 mg oral capsule (8 sources) Thiazide Diuretic Start : 09-08 take 1 capsule by mouth once daily hydrochlorothiazide 12.5 mg Cap 12.5 mg = 1 cap(s), Oral, Daily, # 90 cap(s), Refills(s) 3, Pharmacy: [facility]/pharmacy #[id number], 180, cm, 04/16/24 11:44:00 EDT, Height/Length Dosing, 130.3, kg, 04/16/24 11:44:00 EDT, Weight Dosing Start Date: 09/10/24 Status: Ordered Quantity: 90.0 Unit: cap(s) Repeat number: 4 Start: 08-19-2022 take 1 capsule by [facility] once daily hydrochlorothiazide 12.5 mg Cap 12.5 mg = 1 cap(s), Oral, Daily, # 90 cap(s), Refills(s) 3, Pharmacy: [facility]/pharmacy #[id number], 180, cm, 08/19/22 9:50:00 EST, Height/Length Dosing, 136.2, kg, 08/19/22 9:50:00 EST, Weight Dosing Start Date: 08/19/22 Status: Ordered Start: 02-25-2022 take 1 capsule by [facility] once daily hydrochlorothiazide 12.5 mg Cap 12.5 mg = 1 cap(s), Oral, Daily, # 30 cap(s), Refills(s) 6, Pharmacy: [facility] #[id number], 180, cm, 02/25/22 14:22:00 EDT, Height/Length Dosing, 135, kg, 02/25/22 14:22:00 EDT, Weight Dosing Start Date: 02/25/22 Status: Ordered hyoscyamine sulfate 0.125 mg oral tablet (1 source) Start: 11-12-2021 hyoscyamine 0. 125 mg oral Tab Refills(s) 0 Start Date: 11/12/21 Status: Ordered lisinopril 40 mg oral tablet (9 sources) Angiotensin Converting Enzyme Inhibitor Start: 01-02-2018 take 1 mg by mouth once daily lisinopril 40 mg Tab mg tab(s), Oral, Daily, Refills(s) 0 Start Date: 02/10/19 Status: Ordered Repeat number: 1 meclizine hydrochloride 25 mg chewable tablet (4 sources) Antiemetic Start: 04-16-2024 take 1 tablet by mouth twice daily meclizine 25 mg oral tablet, chewable 25 mg = 1 tab(s), Chewed, BID Start Date: 04/16/24 Status: Ordered Repeat number: 1 Start: 05-25-2021 take 1 tablet by [facility] four times daily meclizine 25 mg Tab 25 mg = 1 tab(s), Oral, QID, Refills(s) 0 Start Date: 05/25/21 Status: Ordered meloxicam 15 mg oral tablet (9 sources) Nonsteroidal Anti-inflammatory Drug Start: 04-16-2024 take 1 tablet by mouth twice daily Mobic 15 mg Tab 15 mg = 1 tab(s), Oral, BID Start Date: 04/16/24 Status: Ordered Repeat number: 1 Start: 02-10-2019 take 1 mg by mouth once daily Mobic 15 mg Tab mg tab(s), Oral, Daily, Refills(s) 0 Start Date: 02/10/19 Status: Ordered Start: 01-02-2018 take 15 mg by mouth twice sarthak y Meloxicam Active 15 MG PO Twice daily January 02, 2018 9:35am montelukast 10 mg oral tablet (5 sources) Leukotriene Receptor Antagonist Start: 04-16-2024 take 1 mg by mouth once daily in the evening montelukast 10 mg Tab mg tab(s), Oral, qPM Start Date: 04/16/24 Status: Ordered Repeat number: 1 Vgtcngfm-Osb-Fi-Lyc open-Lutein (Centrum Silver) 0.4-300-250 mg-mcg-mcg Tablet (1 source) Start: 09-02-2019 take 1 tablet by mouth once daily Qiodvfog-Ozz-Gl-Ly copen-Lutein (Centrum Silver) 0.4-300-250 mg-mcg-mcg Tablet Active 1 TAB PO Daily September 02, 2019 12:45pm oxybutynin chloride 5 mg oral tablet (1 source) Cholinergic Muscarinic Antagonist Start: 04-15-2025 take 2 tablets by mouth once daily oxybutynin 5 mg Tab 10 mg = 2 tab(s), Oral, Daily, # 60 tab(s), Refills(s) 6, Pharmacy: [facility]/pharmacy #[id number], 180, cm, 04/15/25 11:26:00 EDT, Height/Length Dosing, 129, kg, 04/15/25 11:26:00 EDT, Weight Dosing Start Date: 04/15/25 Status: Ordered Quantity: 60.0 Unit: tab(s) Repeat number: 7 potassium bicarbonate 20 meq effervescent oral tablet (2 sources) Start: 01-02-2018 End: 09-02-2019 Potassium Bicarb-Citric Acid (Effer-K) 20 mEq Tablet, Effervescent Active 20 MEQ PO Twice daily September 02, 2019 12:40pm potassium citrate 10 meq extended release oral tablet (3 sources) Start: 04-15-2025 End: 08-31-2026 potassium CITRATE 10 mEq ER Tab 20 mEq, 2 tab(s), Oral, BID for 30 day(s), 120 tab(s), Refill(s) 11, [facility]/pharmacy #[id number], 180, cm, 04/15/25 11:26:00 EDT, Height/Length Dosing, 129, kg, 04/15/25 11:26:00 EDT, Weight Dosing Start Date: 04/15/25 Stop Date: 04/10/26 Status: Ordered Quantity: 120.0 Unit: tab(s) Repeat number: 12 Indications: Calculus of kidney; Start: 04-11-2023 potassium CITR ATE 10 mEq ER Tab 10 mEq, 1 tab(s), Oral, BID, 60 tab(s), Refill(s) 11, [facility]/pharmacy #[id number], 180, cm, 04/11/23 11:56:00 EDT, Height/Length Dosing, 127, kg, 04/11/23 11:56:00 EDT, Weight Dosing Start Date: 04/11/23 Status: Ordered pravastatin sodium 20 mg oral tablet (5 sources) HMG-CoA Reductase Inhibitor Start: 01-02-2018 take 20 mg by mouth once daily at bedtime Pravastatin Active 20 MG PO Daily at bedtime January 02, 2018 9:35am primidone 50 mg oral tablet (14 sources) Anti-epileptic Agent Start: 11-09-2024 take 1 [...] Refills(s) 0 Start Date: 02/10/19 Status: Ordered Repeat number: 1 simvastatin 20 mg oral tablet (7 sources) HMG-CoA Reductase Inhibitor Start: 05-29-2021 take 1 tablet by mouth once daily at bedtime simvastatin 20 mg Tab 20 mg = 1 tab(s), Oral, Once a day (at bedtime), Refills(s) 0 Start Date: 05/29/21 Status: Ordered Repeat number: 1 sodium bicarbonate 650 mg oral tablet (1 source) Start: 08-19-2022 take 1 tablet by mouth twice daily sodium bicarbonate 650 mg Tab 650 mg = 1 tab(s), Oral, BID, # 90 tab(s), Refills(s) 3, Pharmacy: [facility]/pharmacy #[id number], 180, cm, 08/19/22 9:50:00 EST, [...] Daily, # 30 tab(s), Refills(s) 11, Pharmacy: [facility]/pharmacy #[id number], 180, cm, 02/25/22 14:22:00 EDT, Height/Length Dosing, 135, kg, 02/25/22 14:22:00 EDT, Weight Dosing Start Date: 02/25/22 Status: Ordered tadalafil 20 mg oral tablet (5 sources) Phosphodiesterase 5 Inhibitor Start: 10-23-2021 take 1 tablet by mouth once daily Cialis 20 mg Tab 20 mg = 1 tab(s), Oral, Daily, # 30 tab(s), Refills(s) 6, Pharmacy: [facility]/pharmacy #[id number], 180, cm, 10/22/21 14:56:00 EDT, Height/Length Dosing, 135, kg, 10/22/21 14:56:00 EDT, Weight Dosing Start Date: 10/23/21 Status: Ordered Quantity: 30.0 Unit: tab(s) Repeat number: 7 Start: 01-02-2018 take 1 tablet by [facility] once daily Tadalafil (Cialis) 10 mg Tablet Active 10 MG PO Daily January 02, 2018 9:35am tamsulosin hydrochloride 0.4 mg oral capsule (10 sources) alpha-Adrenergic Reilly Start: 10-27-2024 take 1 capsule by mouth twice daily tamsulosin 0.4 mg Cap 0.4 mg = 1 cap(s), Oral, BID, # 180 cap(s), Refills(s) 3, Pharmacy: [facility]/pharmacy #[id number], 180, cm, 04/16/24 11:44:00 EDT, Height/Length Dosing, 130.3, kg, 04/16/24 11:44:00 EDT, Weight Dosing Start Date: 10/27/24 Status: Ordered Quantity: 180.0 Unit: cap(s) Repeat number: 4 Start: 01-27-2024 take 1 capsule by [facility] every twenty-four hours in the morning tamsulosin (Flomax) 0.4 MG 24 hr capsule Take 0.4 mg by mouth in the morning and 0.4 mg before bedtime. 01/27/2024 Active Start: 10-28-2023 take 1 capsule by mo [facility] twice daily tamsulosin 0.4 mg Cap 0.4 mg = 1 cap(s), Oral, BID, # 180 cap(s), Refills(s) 3, Pharmacy: [facility]/pharmacy #[id number], 180, cm, 04/11/23 11:56:00 EDT, Height/Length Dosing, 127, kg, 04/11/23 11:56:00 EDT, Weight Dosing Start Date: 10/28/23 Status: Ordered Start: 04-11-2023 take 1 capsule by mouth once d aily tamsulosin 0.4 mg Cap 0.4 mg = 1 cap(s), Oral, Daily, # 90 cap(s), Refills(s) 3, Pharmacy: [facility]/pharmacy #[id number], 180, cm, 04/11/23 11:56:00 EDT, [...] swallow whole with liquid; do not crush/chew/dissolve/open temazepam 15 mg oral capsule (1 source) Benzodiazepine Start: 04-15-2025 temazepam 15 m g Cap 15 mg = 1 cap(s), Refills(s) 0 Start Date: 04/15/25 Status: Ordered Repeat number: 1 Completed/Discontinued Medications Medication Drug Class(es) Dates Sig (Normalized) Sig (Original) diphenhydrAMINE hydrochloride 25 mg / ibuprofen 200 [...] Classification Problem Date Documented Da te Episodic/Chronic Abdominal pain (5 sources) Unspecified abdominal pain; Translations: [Abdominal pain] Onset: 02-18-2022 Episodic Allergic reactions (8 sources) Eczema; Translations: [Solar degeneration] 02-10-2019 Episodic Anxiety disorders (1 source) Anxiety disorder, unspecified; Translations: [ANXIETY DISORDER UNSPECIFIED] Onset: 08-01-2022 Chronic Calculus of urinary tract (19 sources) Kidney stone; Translations: [Calculus of kidney] Onset: 10-31-2021 Episodic Congestive heart failure; nonhypertensive (1 source) Unspecified diastolic (congestive) heart failure; Translations: [UNSPECIFIED DIASTOLIC HEART FAILURE] Onset: 05-17-2022 Chronic Coronary atherosclerosis and other heart disease (5 sources) Coronary atherosclerosis; Translations: [Atherosclerotic heart disease of [place] coronary artery without angina pectoris] Onset: 11-05-2021 [...] WITHOUT ESOPHAGITIS] Onset: 08-01-2022 Chronic Essential hypertension (11 sources) Hypertensive disorder; Translations: [Essential (primary) hypertension] Onset: 08-01-2022 02-10-2019 Chronic Genitourinary symptoms and ill-defined conditions (10 sources) Post-micturition incontinence ; Translations: [Urge incontinence of urine] Onset: 11-05-2021 01-24-2020 Chronic Genitourinary symptoms and ill-defined conditions (14 sources) Nocturia; Translations: [Nocturia] Onset: 11-05-2021 Episodic Gout and other crystal arthropathies (1 source) Gout, unspecified; Translations: [GOUT UNSPECIFIED] Onset: 08-01-2022 Chronic Hyperplasia of prostate (8 sources) Benign prostatic hypertrophy with outflow obstruction; Translations: [Benign prostatic hyperplasia with lower urinary tract symptoms] Onset: 11-05-2021 Chronic Hypertension with complications and secondary hypertension (1 source) Hypertensive heart disease with heart failure; Translations: [HTN HEART DISEASE W/HEART FAIL] Onset: 05-17-2022 Chronic Joint disorders and dislocations; trauma-related (4 sources) Acetabular labrum tear 02-10-2019 Chronic Joint disorders and dislocations; trauma-related (4 sources) Tear of meniscus of knee 02-10-2019 Episodic Nonspecific chest pain (4 sources) Chest pain, unspecified; Translations: [CHEST PAIN UNSPECIFIED] Onset: 07-26-2022 Episodic Osteoarthritis (1 source) Unspecified osteoarthritis, unspecified site; Translations: [UNSPECIFIED OSTEOARTHRITIS UNS SITE] Onset: 08-01-2022 Chronic Other 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) exterminator (current) use of aspirin; Translations: [PENITENTIARY CURRENT USE OF ASPIRIN] Onset: 08-01-2022 Episodic Other 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) Other alf (current) 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; Translations: [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 CURRENT DRUG THERAPY] Onset: 08-01-2022 Episodic Other connective tissue disease (1 source) Presence of right artificial knee joint; Translations: [PRESENCE RT ARTIFICIAL KNEE JOINT] Onset: 11-12-2021 Chronic Other gastrointestinal disorders (4 sources) Occult blood in stools 02-10-2019 Episodic Other hereditary and degenerative nervous system conditions (11 sources) Essential tremor; Translations: [Essential tremor] Onset: 03-28-2024 05-25-2021 Chronic Other hereditary and degenerative nervous system conditions (1 source) Essential tremor; Translations: [ESSENTIAL TREMOR] Onset: 08-01-2022 Chronic Other inflammatory condition of skin (4 sources) Lichen simplex chronicus 05-25-2021 Episodic Other lower respiratory disease (1 source) Shortness of breath; Translations: [SHORTNESS OF BREATH] Onset: 08-01-2022 Episodic Other lower respiratory disease (1 source) Dyspnea, unspecified; Translations: [DYSPNEA UNSPECIFIED] Onset: 05-17-2022 Episodic Other male genital disorders (5 sources) Male erectile dysfunction, unspecified; Translations: [Erectile dysfunction] Onset: 11-05-2021 Chronic Other male genital disorders (4 sources) Impotence 01-24-2020 Chronic Other non-epithelial cancer of skin (9 sources) Basal cell carcinoma of lower extremity; Translations: [Basal cell carcinoma of skin] Onset: 08-01-2022 05-29-2021 Episodic Other nutritional; endocrine; and metabolic disorders (4 sources) Body mass index 40+ - severely obese 06-16-2019 Chronic Other nutritional; endocrine; and metabolic disorders (4 sources) Obesity 02-10-2019 Chronic Other nutritional; endocrine; [...] PROSTATE] Onset: 05-17-2022 Episodic Other skin disorders (4 sources) Actinic keratosis 05-25-2021 Episodic Residual codes; unclassified (4 sources) History of arthroscopy of knee joint [...] Problem Classification Problem Date Documented Date Episodic/Chronic Other 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) half-way (current) use of anticoagulants; Translations: [WET 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 CURRNT USE ANTICOAGULANTS] Onset: 11-05-2021 Episodic [...] Reference Range Facility Ambulatory Visit Summaryon 0 04-15-2025 Ambulatory Visit Summary Ambulatory Visit Summary RIZWAN APARICIO :1950 Visit Date:04/15/2025 Ambulatory Visit Instructions Your Diagnosis Kidney stone Right flank pain BPH with urinary obstruction Nocturia Impotence Tests Performed XR Abdomen 1 View -- Results Pending [...] Contact prescribing physician if questions or concerns acetaminophen-oxycodone (acetaminophen-oxycodone 325 mg-5 mg Tab) aspirin (aspirin 81 mg Chew Tab) cetirizine (Zyrtec) clonidine (cloNIDine 0.1 mg tab) colchicine (colchicine 0.6 mg Tab) lisinopril (lisinopril 40 mg Tab) meclizine (meclizine 25 mg oral tablet, chewable) meloxicam (Mobic 15 mg Tab) montelukast (montelukast 10 mg Tab) primidone (primidone 50 mg Tab) simvastatin (simvastatin 20 mg Tab) temazepam (temazepam 15 mg Cap) Procedures Performed Cystoscopy (11/21/2021), Cystoscopy (11/06/2021), Colonoscopy (11/08/2013), Arthroplasty of the knee, Arthroscopic knee procedure, Basal cell carcinoma, CEIOL - cataract extraction and implantation of intraocular lens, Lithotripsy, Nose reconstruction, Repair of umbilical hernia, Rotator cuff repair, Wide excision. Discharge Vitals Temperature (Temporal Artery) 37 ???C Heart Rate (Peripheral) 70 Respiratory Rate 18 Blood Pressure 131/87 Height 180 cm Height 71 in Weight 129 kg Weight 284.396 lb BMI 39.81 What to do next Scheduled Follow-Up Appointments Friday2025 10:45 AM EDT With: Micki ZENG MD Where: [facility] [address] [place] [address]- You Need to Schedule the Following Appointments Follow Up with Micki ZENG MD, URL When: Comments: 1 yr w/ KUB Where: [address] [place] [address] Medications What How Much When Instructions Unchanged [...] By Mouth 2 times a day Unchanged acetaminophen-oxycodone (acetaminophen-oxycodone 325 mg-5 mg Tab) 1 Tablets Contact prescribing physician if questions or concerns Unchanged aspirin (aspirin 81 mg Chew Tab) 2 Tablets Chewed 2 times a day Contact prescribing physician if questions or concerns Unchanged cetirizine (Zyrtec) 5 Milligram Every day Contact prescribing physician if questions [...] prescribing physician if questions or concerns Unchanged temazepam (temazepam 15 mg Cap) 1 Capsules Contact prescribing physician if questions or concerns Allergies No Known Allergies No Known Medication [...] Obesity Occult blood in stools Post-void dribbling Right flank pain Solar elastosis Tear of meniscus of left knee Urge incontinence Urgency (more content not included)... Normal [facility] Urology Office/Clinic Noteon 04-15-2025 Urology Office/Clinic Note Urology Office/Clinic Note Chief Complaint 1 year with KUB HPI Staff Pt is a 74 year old male here for 1 year follow up with KUB Previous dx: BPH with urinary obstruction, kidney stone, nocturia and impotence. *Tamsulosin 0.4mg bid, Tadalafil 20mg prn, Allopurinol 300mg qd, HCTZ 12.5mg qd. Potassium citrate Er 10meq qd therapy instead of bid therapy. Pt states that he has had right kidney pain for the past 5 years. States that the pain is worse after he does activity like mowing the lawn. Denies any visible blood at any time. Does admit to some post void dribbling and nocturia x2. Denies all other urinary concerns at this time. History of Present Illness Tests reviewed: reviewed UA, KUB, PSA, BMP I have reviewed the previous health record [...] See HPI. Physical Exam Vitals & Measurements T: 37 ???C(Temporal Artery) HR: 70(Peripheral) RR: 18 BP: 131/87 HT: 180 cm HT: 71 in WT: 129 kg WT: 284.396 lb BMI: 39.81 General Appearance: alert, no distress, well nourished, well developed male. Flank Pain: severe on right. Assessment/Plan 1. Kidney stone (N20.0: Calculus of kidney) XR IVP 07/18/22 - Neg. S/p Cysto, basket extraction 02/18/[address] Fry on 02/18/22. Stone analysis - 70% CaOx Gage, 30% uric acid. LUIS 04/01/23 - cortical thickening of both kidneys, no hydronephrosis and tiny punctate calcifications in the left kidney. LUIS 04/17/24 - Scattered punctate nonobstructing L renal stones. No hydro. KUB 04/01/25 [facility] - Punctate L renal calculus. No additional stones. Not taking sodium bicarbonate 650mg qd, stopped per OV note 02/25/22. Reviewed imaging results, stone appears stable. Taking Allopurinol 300mg qd, HCTZ 12.5mg qd, and potassium citrate 10mEq qd. Urine pH 5.5. Denies SEs/bother from potassium citrate. Recommend increasing dosage to alkalize urine more and prevent stone growth/formation. Advised pt electrolytes will need checked to ensure K does not become too high. Current K level 3.6 (from BMP 02/01/25). States he is getting blood work with PCP soon which includes metabolic panel. -Cont Allopurinol 300mg qd and HCTZ 12.5mg qd -Increase potassium citrate to 20mEq bid. New rx sent to [facility] with refills. --Provide urine sample in 2 mos to check [facility] response. Will check K level from PCP blood work in 2 mos, and call pt with results. -F/u in 1 yr w/ KUB 2. Right flank pain (R10.9: Unspecified abdominal pain) LUIS 04/17/24 - No hydro. Ongoing for yrs. Worsens with activity. Recently took Oxybutynin that he had on hand which relieved his pain, first time he has had relief in yrs. Denies pain radiating to abdomen/pelvis. Does not feel related to kidney stones but does feel similar to when he had a stent in place. Discussed LUIS from last yr was neg for evidence of obstruction. . Denies struggling with urination. Feels empty. Upon exam/palpation, pain appears musculoskeletal vs urologic in origin. Discussed possibility of herniated disc. Advised pt we can send Oxybutynin to help with spasms. Possible SEs discussed. -Take Oxybutynin IR 10 mg qd prn for spasms. Rx sent to [facility].Stop med and call if experiencing difficulty emptying. 3. BPH with urinary obstruction (N40.1: Benign prostatic hyperplasia with lower urinary tract symptoms) PSA 05/25/20 - 0.42 05/15/22 - 0.49 07/30/24 - 0.82 PCP checks PSA, level low for pt's age. UA neg. IPSS 10. Taking Tamsulosin 0.4mg bid. Not voicing any urinary habit complaints. -Cont Tamsulosin wo changes. Call for refills. -Cont PSA monitoring w/ PCP 4. Nocturia (R35.1: Nocturia) D/c VESIcare at prior OV due to severe dry mouth. Getting up 2x/night vs 3x. Not voicing any bother with urination at this time. However starting Oxybutynin ER 10 mg qd per #2. 5. Impotence (N52.9: Male erectile dysfunction, unspecified) Tadalafil 20mg prn. No concerns. Follow-up With When Contact Information Micki ZENG MD, URL [address] [address] [place] [address] Additional Instructions: 1 yr w/ KUB Patient Education Kidney Stones, [id number] IBrenda, personally scribed for Dr. Zeng on 04/15/2025 12:47:35. . Documentation recorded by the Brenda yang, accurately reflects the services(s) I performed and d (more content not included)... Normal [facility] Comment on above: Result Comment: Elec tronically Signed By: Micki ZENG MD\.br\Date and Time Signed: 04/15/25 12:58 EDT\.br\Electronically Co-Signed By: Brenda [email or web address]\Date and Time Co-Signed: 04/15/25 12:48 EDT Aerobic Cultureon 08-03-2024 Aerobic Culture Result Tab Codes Heavy Normal Respiratory Kimberlee 2 Days Gram Stain Result 4+ Gram Positive Cocci 1+ Yeast Like Elements 1+ Gram Negative Bacilli 1+ Gram Positive Bacilli 1+ White Blood Cells 2+ Epithelial Cells PERFORMED BY: [place] [address] PATHOLOGIST ENGINEER STEAM ANGELES Reaves [facility] Comment on above: Performed By: #### G S, AERC #### [address] Gram Stainon 08-03-2024 Microscopic observation Gram stain Nom (Unsp spec) Gram Stain Result 4+ Gram Positive Cocci 1+ Yeast Like Elements 1+ Gram Negative Bacilli 1+ Gram Positive Bacilli 1+ White Blood Cells 2+ Epithelial Cells PERFORMED BY: [place] [address] PATHOLOGIST ENGINEER STEAM ANGELES VILLEGAS M.D. Normal [facility] Comment on above: Performed By: #### G S, AERC #### [address] CBC AUTO DIFFon 07-27-2022 BASO # 0.1 103/ul Normal 0.0-0.1 [facility] Comment on above: Performed By: #### U DINA, LIPID, TSH, BNP, CMP, T7 #### [facility] [address] [place] [address] Dr. Suzie Brooks Basophils/100 WBC (Bld) 0.5 % Normal 0.2-2.0 [facility] Comment on above: Performed By: #### U DINA, LIPID, TSH, BNP, CMP, T7 #### [facility] [address] [address] [address] Suzie Brooks EO # 0.4 103/ul Normal 0.0-0.7 [facility] Comment on above: Performed By: #### U DINA, LIPID, TSH, BNP, CMP, T7 #### [facility] [address] [place] [address] Dr. Suzie Brooks Eosinophils/100 WBC (Bld) 3.3 % Normal 0.9-7.[address] [facility] Comment on above: Performed By: #### U DINA, LIPID, TSH, BNP, CMP, T7 #### [facility] [address] [place] [address] Dr. Suzie Brooks Erythrocyte distribution width (RBC) [Ratio] 14.6 % Normal 11.0-15.[address] [facility] Comment on above: Performed By: #### U DINA, LIPID, TSH, BNP, CMP, T7 #### [facility] [address] [place] [address] Dr. Suzie Brokos Hematocrit (Bld) [Volume fraction] 42.0 % Normal 42.0-54.[address] [facility] Comment on above: Performed By: #### U DINA, LIPID, TSH, BNP, CMP, T7 #### [facility] [address] [place] [address] Dr. Suzie Brooks Hemoglobin (Bld) [Mass/Vol] 14.1 g/dL Normal 14.0-18.[address] [facility] Comment on above: Performed By: #### U DINA, LIPID, TSH, BNP, CMP, T7 #### [facility] [address] [place] [address] Dr. Suzie Brooks IG # 0.03 10e3/ul Normal 0.00-0.[address] [facility] Comment on above: Performed By: #### U DINA, LIPID, TSH, BNP, CMP, T7 #### [facility] [address] [place] [address] Dr. Suzie Brooks IG % 0.3 % Normal 0.0-0.[address] [facility] Comment on above: Performed By: #### U DINA, LIPID, TSH, BNP, CMP, T7 #### [facility] [address] [place] [address] Dr. Suzie Brooks LYMPH # 3.1 103/ul Normal 1.2-3.[address] [facility] Comment on above: Performed By: #### U DINA, LIPID, TSH, BNP, CMP, T7 #### [facility] [address] [address] [address] Suzie Brooks Lymphocytes/100 WBC (Bld) 28.2 % Normal 20.5-60.0 [facility] Comment on above: Performed By: #### U DINA, LIPID, TSH, BNP, CMP, T7 #### [facility] [address] [place] [address] Dr. Suzie Brooks MANUAL DIFF REQ NO Normal [facility] Comment on above: Performed By: #### U DINA, LIPID, TSH, BNP, CMP, T7 #### [facility] [address] [place] [address] Dr. Suzie Brooks MCH (RBC) [Entitic mass] 28.5 pg Normal 25.9-34.0 [facility] Comment on above: Performed By: #### U DINA, LIPID, TSH, BNP, CMP, T7 #### [facility] [address] [place] [address] Dr. Suzie Brooks MCHC (RBC) [Mass/Vol] 33.6 g/dL Normal 29.9-35.[address] [facility] Comment on above: Performed By: #### U DINA, LIPID, TSH, BNP, CMP, T7 #### [facility] [address] [place] [address] Dr. Suzie Brooks MCV (RBC) [Entitic vol] 85.0 fL Normal 80.0-94.[address] [facility] Comment on above: Performed By: #### U DINA, LIPID, TSH, BNP, CMP, T7 #### [facility] [address] [place] [address] Dr. Suzie Brooks MONO # 0.8 103/ul Normal 0.3-0.[address] [facility] Comment on above: Performed By: #### U DINA, LIPID, TSH, BNP, CMP, T7 #### [facility] [address] [place] [address] Dr. Suzie Brooks Monocytes/100 WBC (Bld) 7.2 % Normal 1.7-12.0 [facility] Comment on above: Performed By: #### U DINA, LIPID, TSH, BNP, CMP, T7 #### [facility] [address] [address] [address] Suzie Brooks NEUT # 6.7 103/ul Critically high 1.4-6.5 [facility] Comment on above: Performed By: #### U DINA, LIPID, TSH, BNP, CMP, T7 #### [facility] [address] [address] [address] Suzie Brooks Neutrophils/100 WBC (Bld) 60.5 % Normal 43.0-75.0 [facility] Comment on above: Performed By: #### U DINA, LIPID, TSH, BNP, CMP, T7 #### [facility] [address] [address] [address] Suzie Brooks Platelet mean volume (Bld) [Entitic vol] 9.6 fL Normal 9.5-13.5 [facility] Comment on above: Performed By: #### U DINA, LIPID, TSH, BNP, CMP, T7 #### [facility] [address] [address] [address] Suzie Brooks PLT 266 103/ul Normal 150-450 [facility] Comment on above: Performed By: #### U DINA, LIPID, TSH, BNP, CMP, T7 #### [facility] [address] [address] [address] Suzie Brooks RBC 4.94 106/ul Normal 4.70-6.10 [facility] Comment on above: Performed By: #### U DINA, LIPID, TSH, BNP, CMP, T7 #### [facility] [address] [address] [address] Suzie Brooks WBC 11.1 103/ul Critically high 4.0-11.0 [facility] Comment on above: Performed By: #### U DINA, LIPID, TSH, BNP, CMP, T7 #### [facility] [address] [address] [address] Suzie Brooks PROF 14(COMP METB)on 022 Albumin [Mass/Vol] 3.2 g/dL Critically low 3.4-5.0 [facility] Comment on above: Performed By: #### C VDTBH #### [facility] [address] [address] [address] Suzie Brooks Albumin/Globulin [Mass ratio] 0.9 {ratio} Normal [facility] Comment on above: Performed By: #### C VDTBH #### [facility] [address] [address] [address] Suzie Brooks ALP [Catalytic activity/Vol] 60 U/L Normal 46-116 [facility] Comment on above: Performed By: #### C VDTBH #### [facility] [address] [place] [address] Dr. Suzie Brooks ALT [Catalytic activity/Vol] 27 U/L Normal 16-63 [facility] Comment on above: Performed By: #### C VDTBH #### [facility] [address] [place] [address] Dr. Suzie Brooks Anion gap [Moles/Vol] 10.4 mmol/L Normal [facility] Comment on above: Performed By: #### C VDTBH #### [facility] [address] [place] [address] Dr. Suzie Brooks AST [Catalytic activity/Vol] 23 U/L Normal 15-37 [facility] Comment on above: Performed By: #### C VDTBH #### [facility] [address] [place] [address] Dr. Suzie Brooks Bilirubin [Mass/Vol] 0.4 mg/dL Normal 0.2-1.0 [facility] Comment on above: Performed By: #### C VDTBH #### [facility] [address] [place] [address] Dr. Suzie Brooks Calcium [Mass/Vol] 8.4 mg/dL Critically low 8.5-10.1 [facility] Comment on above: Performed By: #### C VDTBH #### [facility] [address] [place] [address] Dr. Suzie Brooks Chloride [Moles/Vol] 104 mmol/L Normal 98-107 [facility] Comment on above: Performed By: #### C VDTBH #### [facility] [address] [address] [address] Suzie Brooks CO2 [Moles/Vol] 26.1 mmol/L Normal 21.0-32.0 [facility] Comment on above: Performed By: #### C VDTBH #### [facility] [address] [address] [address] Suzie Brooks Creatinine [Mass/Vol] 0.90 mg/dL Normal 0.70-1.30 [facility] Comment on above: Performed By: #### C VDTBH #### [facility] [address] [address] [address] Suzie Brooks EGFR-AF VINCENTIAN >60 Normal >=60 [facility] Comment on above: Performed By: #### C VDTBH #### [facility] [address] [place] [address] Dr. Suzie Brooks EGFR-NON AF VINCENTIAN >60 Normal >=60 [facility] Comment on above: Performed By: #### C VDTBH #### [facility] [address] [place] [address] Dr. Suzie Brooks Globulin (S) [Mass/Vol] 3.4 g/dL Normal [facility] Comment on above: Performed By: #### C VDTBH #### [facility] [address] [place] [address] Dr. uSzie Brooks Glucose [Mass/Vol] 111 mg/dL Critically high 74-106 [facility] Comment on above: Performed By: #### C VDTBH #### [facility] [address] [address] [address] Suzie Brooks Potassium [Moles/Vol] 3.5 mmol/L Normal 3.5-5.1 [facility] Comment on above: Performed By: #### C VDTBH #### [facility] [address] [address] [address] Suzie Brooks Protein [Mass/Vol] 6.6 g/dL Normal 6.4-8.2 [facility] Comment on above: Performed By: #### C VDTBH #### [facility] [address] [address] [address] Suzie Brooks Sodium [Moles/Vol] 137 mmol/L Normal 136-145 [facility] Comment on above: Performed By: #### C VDTBH #### [facility] [address] [place] [address] Dr. Suzie Brooks Urea nitrogen [Mass/Vol] 13.0 mg/dL Normal 7.0-18.0 [facility] Comment on above: Performed By: #### C VDTBH #### [facility] [address] [place] [address] Dr. Suzie Brooks Urea nitrogen/Creatinine [Mass ratio] 14.4 mg/mg Normal [facility] Comment on above: Performed By: #### C VDTBH #### [facility] [address] [place] [address] Dr. Suzie Brooks BNPon 07-26-2022 Natriuretic peptide B (Bld) [Mass/Vol] 118.0 pg/mL Normal <=900.0 [facility] Comment on above: Performed By: #### U DINA, LIPID, TSH, BNP, CMP, T7 #### [facility] [address] [place] [address] Dr. Suzie Brooks CARDIAC MJ 3-6on 2 CK [Catalytic activity/Vol] 240 U/L Normal 39-308 [facility] Comment on above: Performed By: #### U DINA, LIPID, TSH, BNP, CMP, T7 #### [facility] [address] [place] [address] Dr. Suzie Brooks CK.MB [Mass/Vol] 3.43 ng/mL Normal <=3.60 [facility] Comment on above: Performed By: #### U DINA, LIPID, TSH, BNP, CMP, T7 #### [facility] [address] [place] [address] Dr. Suzie Brooks HSTROP 8.6 pg/mL Normal 4.0-76.1 [facility] Comment on above: Result Comment: CUT- OFF POINTS HAVE BEEN ESTABLISHED BASED ON THE FOURTH UNIVERSAL DEFINITIONS OF MYOCARDIAL INFARCTION. THE UPPER REFERENCE LIMIT (URL) OF TROPONIN, DEFINED THE 99TH PERCENTILE OF cTnI DISTRIBUTION IN A REFERENCE POPULATION, HAS BEEN CONFIRMED THE DECISION THRESHOLD FOR [place] DIAGNOSIS. Performed By: #### U DINA, LIPID, TSH, BNP, CMP, T7 #### [facility] [address] [place] [address] Dr. Suzie Brooks CK [Catalytic activity/Vol] 239 U/L Normal 39-308 [facility] Comment on above: Performed By: #### M AG24 #### [facility] [address] [place] [address] Dr. Suzie Brooks CK.MB [Mass/Vol] 2.93 ng/mL Normal <=3.60 [facility] [place] [facility] Comment on above: Performed By: #### M AG24 #### [facility] [address] [place] [address] Dr. Suzie Brooks HSTROP 10.4 pg/mL Normal 4.0-76.1 [facility] Comment on above: Result Comment: CUT- OFF POINTS HAVE BEEN ESTABLISHED BASED ON THE FOURTH UNIVERSAL DEFINITIONS OF MYOCARDIAL INFARCTION. THE UPPER REFERENCE LIMIT (URL) OF TROPONIN, DEFINED THE 99TH PERCENTILE OF cTnI DISTRIBUTION IN A REFERENCE POPULATION, HAS BEEN CONFIRMED THE DECISION THRESHOLD FOR WA DIAGNOSIS. Performed By: #### M AG24 #### [facility] [address] [place] [address] Dr. Suzie Brooks CARDIAC MJ ADMITon 022 CK [Catalytic activity/Vol] 234 U/L Normal 39-308 [facility] Comment on above: Performed By: #### O X24HR #### [facility] [address] [place] [address] Dr. Suzie Brooks CK.MB [Mass/Vol] 3.37 ng/mL Normal <=3.60 [facility] [place] [facility] Comment on above: Performed By: #### O X24HR #### [facility] [address] [place] [address] Dr. Suzie Brooks HSTROP 9.0 pg/mL Normal 4.0-76.1 [facility] Comment on above: Result Comment: CUT- OFF POINTS HAVE BEEN ESTABLISHED BASED ON THE FOURTH UNIVERSAL DEFINITIONS OF MYOCARDIAL INFARCTION. THE UPPER REFERENCE LIMIT (URL) OF TROPONIN, DEFINED THE 99TH PERCENTILE OF cTnI DISTRIBUTION IN A REFERENCE POPULATION, HAS BEEN CONFIRMED THE DECISION THRESHOLD FOR [place] DIAGNOSIS. Performed By: #### O X24HR #### [facility] [address] [place] [address] Dr. Suzie Brooks EDIE 85 ng/mL Normal 16-[address] [facility] Comment on above: Performed By: #### O X24HR #### [facility] [address] [place] [address] Dr. Suzie Brooks CBC AUTO DIFFon 07-26-2022 BASO # 0.1 103/ul Normal 0.0-0.[address] [facility] Comment on above: Performed By: #### U DINA, LIPID, TSH, BNP, CMP, T7 #### [facility] [address] [place] [address] Dr. Suzie Brooks Basophils/100 WBC (Bld) 0.4 % Normal 0.2-2.0 [facility] Comment on above: Performed By: #### U DINA, LIPID, TSH, BNP, CMP, T7 #### [facility] [address] [place] [address] Dr. Suzie Brooks EO # 0.3 103/ul Normal 0.0-0.[address] [facility] Comment on above: Performed By: #### U DINA, LIPID, TSH, BNP, CMP, T7 #### [facility] [address] [place] [address] Dr. Suzie Brooks Eosinophils/100 WBC (Bld) 2.5 % Normal 0.9-7.[address] [facility] Comment on above: Performed By: #### U DINA, LIPID, TSH, BNP, CMP, T7 #### [facility] [address] [place] [address] Dr. Suzie Brooks Erythrocyte distribution width (RBC) [Ratio] 14.4 % Normal 11.0-15.[address] [facility] Comment on above: Performed By: #### U DINA, LIPID, TSH, BNP, CMP, T7 #### [facility] [address] [place] [address] Dr. Suzie Brooks Hematocrit (Bld) [Volume fraction] 46.0 % Normal 42.0-54.[address] [facility] Comment on above: Performed By: #### U DINA, LIPID, TSH, BNP, CMP, T7 #### [facility] [address] [place] [address] Dr. Suzie Brooks Hemoglobin (Bld) [Mass/Vol] 15.6 g/dL Normal 14.0-18.0 [facility] Comment on above: Performed By: #### U DINA, LIPID, TSH, BNP, CMP, T7 #### [facility] [address] [address] [address] Suzie Brooks IG # 0.07 10e3/ul Critically high 0.00-0.03 [facility] Comment on above: Performed By: #### U DINA, LIPID, TSH, BNP, CMP, T7 #### [facility] [address] [place] [address] Dr. Suzie Brooks IG % 0.6 % Critically high 0.0-0.5 [facility] Comment on above: Performed By: #### U DINA, LIPID, TSH, BNP, CMP, T7 #### [facility] [address] [place] [address] Dr. Suzie Brooks LYMPH # 2.9 103/ul Normal 1.2-3.[address] [facility] Comment on above: Performed By: #### U DINA, LIPID, TSH, BNP, CMP, T7 #### [facility] [address] [place] [address] Dr. Suzie Brooks Lymphocytes/100 WBC (Bld) 24.2 % Normal 20.5-60.0 [facility] Comment on above: Performed By: #### U DINA, LIPID, TSH, BNP, CMP, T7 #### [facility] [address] [place] [address] Dr. Suzie Brooks MANUAL DIFF REQ NO Normal [facility] Comment on above: Performed By: #### U DINA, LIPID, TSH, BNP, CMP, T7 #### [facility] [address] [place] [address] Dr. Suzie Brooks MCH (RBC) [Entitic mass] 28.6 pg Normal 25.9-34.0 [facility] Comment on above: Performed By: #### U DINA, LIPID, TSH, BNP, CMP, T7 #### [facility] [address] [address] [address] Suzie Brooks MCHC (RBC) [Mass/Vol] 33.9 g/dL Normal 29.9-35.[address] [facility] Comment on above: Performed By: #### U DINA, LIPID, TSH, BNP, CMP, T7 #### [facility] [address] [place] [address] Dr. Suzie Brooks MCV (RBC) [Entitic vol] 84.4 fL Normal 80.0-94.[address] [facility] Comment on above: Performed By: #### U DINA, LIPID, TSH, BNP, CMP, T7 #### [facility] [address] [place] [address] Dr. Suzie Brooks MONO # 0.8 103/ul Normal 0.3-0.[address] [facility] Comment on above: Performed By: #### U DINA, LIPID, TSH, BNP, CMP, T7 #### [facility] [address] [place] [address] Dr. Suzie Brooks Monocytes/100 WBC (Bld) 6.7 % Normal 1.7-12.[address] [facility] Comment on above: Performed By: #### U DINA, LIPID, TSH, BNP, CMP, T7 #### [facility] [address] [place] [address] Dr. Suzie Brooks NEUT # 7.8 103/ul Critically high 1.4-6.5 [facility] Comment on above: Performed By: #### U DINA, LIPID, TSH, BNP, CMP, T7 #### [facility] [address] [place] [address] Dr. Suzie Brooks Neutrophils/100 WBC (Bld) 65.6 % Normal 43.0-75.[address] [facility] Comment on above: Performed By: #### U DINA, LIPID, TSH, BNP, CMP, T7 #### [facility] [address] [place] [address] Dr. Suzie Brooks Platelet mean volume (Bld) [Entitic vol] 9.7 fL Normal 9.5-13.[address] [facility] Comment on above: Performed By: #### U DINA, LIPID, TSH, BNP, CMP, T7 #### [facility] [address] [address] [address] Suzie Brooks PLT 289 103/ul Normal 150-[address] [facility] Comment on above: Performed By: #### U DINA, LIPID, TSH, BNP, CMP, T7 #### [facility] [address] [address] [address] Suzie Brooks RBC 5.45 106/ul Normal 4.70-6.[address] [facility] Comment on above: Performed By: #### U DINA, LIPID, TSH, BNP, CMP, T7 #### [facility] [address] [address] [address] Suzie Brooks WBC 11.9 103/ul Critically high 4.0-11.0 [facility] Comment on above: Performed By: #### U DINA, LIPID, TSH, BNP, CMP, T7 #### [facility] [address] [place] [address] Dr. Suzie Brooks CTA CHEST WO W CONon -16-2 022 CTA CHEST WO W CON EXAMINATION: [...] BEHZAD CARRASQUILLO Date: 2022-07-26 11:[address] [facility]11 SARS-CoV-2 (COVID-19) RNA SUKHJINDER+probe Ql (Unsp spec) Not detected Normal NOT DETECTED [facility] Comment on above: Result Comment: When [...] for this test is supported by the [place] of Health and Human Service's declaration that [...] DINA, LIPID, TSH, BNP, CMP, T7 #### [facility] [address] [place], [place] [address] Dr. Suzie Brooks D-DIMERon 07-26-2022 D-DIMER 0.88 mg/L FEU Critically high <=0.59 [facility] Comment on above: Performed By: #### C VDTBH #### [facility] [address] [place], [place] [address] Dr. Suzie Brooks D-DIMER COMMENTS SEE BELOW Normal [facility] [place] [facility] Comment on above: Result Comment: Incr [...] and generalized hospitalization. Performed By: #### [facility] #### [facility] [address] [place] [address] Dr. Suzie Brooks ECHOCARDIO M/2D COMPLETEon 1 09-26-2021 ECHOCARDIO M/2D COMPLETE Patient: RIZWAN APARICIO Exam Date: 07/26/2022 : 1950 Gender:M Ordering : DR MARIELLE LERMA . Admission #: [id number] Family : Order #: [id number] CLICK HERE TO VIEW EXAM ECHOCARDIOGRAM REPORT [...] Rios M.D. on 07/26/2022 at 16:22 Normal [facility] PROF 14(COMP METB)on 07-26- 022 Albumin [Mass/Vol] 3.6 g/dL Normal 3.4-5.0 [facility] Comment on above: Performed By: #### U DINA, LIPID, TSH, BNP, CMP, T7 #### [facility] [address] [place], [place] [address] Dr. Suzie Brooks Albumin/Globulin [Mass ratio] 0.9 {ratio} Normal [facility] Comment on above: Performed By: #### U DINA, LIPID, TSH, BNP, CMP, T7 #### [facility] [address] [place], [place] [address] Dr. Suzie Brooks ALP [Catalytic activity/Vol] 70 U/L Normal 46-116 [facility] Comment on above: Performed By: #### U DINA, LIPID, TSH, BNP, CMP, T7 #### [facility] [address] [place] [address] Dr. Suzie Brooks ALT [Catalytic activity/Vol] 30 U/L Normal 16-63 [facility] Comment on above: Performed By: #### U DINA, LIPID, TSH, BNP, CMP, T7 #### [facility] [address] [place] [address] Dr. Suzie Brooks Anion gap [Moles/Vol] 9.2 mmol/L Normal [facility] Comment on above: Performed By: #### U DINA, LIPID, TSH, BNP, CMP, T7 #### [facility] [address] [place] [address] Dr. Suzie Brooks AST [Catalytic activity/Vol] 29 U/L Normal 15-37 [facility] Comment on above: Performed By: #### U DINA, LIPID, TSH, BNP, CMP, T7 #### [facility] [address] [place] [address] Dr. Suzie Brooks Bilirubin [Mass/Vol] 0.5 mg/dL Normal 0.2-1.0 [facility] Comment on above: Performed By: #### U DINA, LIPID, TSH, BNP, CMP, T7 #### [facility] [address] [place] [address] Dr. Suzie Brooks Calcium [Mass/Vol] 8.8 mg/dL Normal 8.5-10.1 [facility] Comment on above: Performed By: #### U DINA, LIPID, TSH, BNP, CMP, T7 #### [facility] [address] [place] [address] Dr. Suzei Brooks Chloride [Moles/Vol] 102 mmol/L Normal 98-107 [facility] Comment on above: Performed By: #### U DINA, LIPID, TSH, BNP, CMP, T7 #### [facility] [address] [place] [address] Dr. Suzie Brooks CO2 [Moles/Vol] 27.2 mmol/L Normal 21.0-32.0 [facility] Comment on above: Performed By: #### U DINA, LIPID, TSH, BNP, CMP, T7 #### [facility] [address] [address] [address] Suzie Brooks Creatinine [Mass/Vol] 0.99 mg/dL Normal 0.70-1.30 [facility] Comment on above: Performed By: #### U DINA, LIPID, TSH, BNP, CMP, T7 #### [facility] [address] [place] [address] Dr. Suzie Brooks EGFR-AF VINCENTIAN >60 Normal >=60 [facility] Comment on above: Performed By: #### U DINA, LIPID, TSH, BNP, CMP, T7 #### [facility] [address] [place] [address] Dr. Suzie Brooks EGFR-NON AF VINCENTIAN >60 Normal >=60 [facility] Comment on above: Performed By: #### U DINA, LIPID, TSH, BNP, CMP, T7 #### [facility] [address] [place] [address] Dr. Suzie Brooks Globulin (S) [Mass/Vol] 3.9 g/dL Normal [facility] Comment on above: Performed By: #### U DINA, LIPID, TSH, BNP, CMP, T7 #### [facility] [address] [place] [address] Dr. Suzie Brokos Glucose [Mass/Vol] 125 mg/dL Critically high 74-106 [facility] Comment on above: Performed By: #### U DINA, LIPID, TSH, BNP, CMP, T7 #### [facility] [address] [place] [address] Dr. Suzie Brooks Potassium [Moles/Vol] 3.4 mmol/L Critically low 3.5-5.1 [facility] Comment on above: Performed By: #### U DINA, LIPID, TSH, BNP, CMP, T7 #### [facility] [address] [place] [address] Dr. Suzie Brooks Protein [Mass/Vol] 7.5 g/dL Normal 6.4-8.2 [facility] Comment on above: Performed By: #### U DINA, LIPID, TSH, BNP, CMP, T7 #### [facility] [address] [place] [address] Dr. Suzie Brooks Sodium [Moles/Vol] 135 mmol/L Critically low 136-[address] [facility] Comment on above: Performed By: #### U DINA, LIPID, TSH, BNP, CMP, T7 #### [facility] [address] [place] [address] Dr. Suzie Brooks Urea nitrogen [Mass/Vol] 15.0 mg/dL Normal 7.0-18.0 [facility] Comment on above: Performed By: #### U DINA, LIPID, TSH, BNP, CMP, T7 #### [facility] [address] [place] [address] Dr. Suzie Brooks Urea nitrogen/Creatinine [Mass ratio] 15.2 mg/mg Normal [facility] Comment on above: Performed By: #### U DINA, LIPID, TSH, BNP, CMP, T7 #### [facility] [address] [place] [address] Dr. Suzie Brooks PROTIMEon 07-26-2022 INR Coag (PPP) [Relative time] 0.95 {INR} Normal [facility] Comment on above: Performed By: #### C VDTBH #### [facility] [address] [place] [address] Dr. Suzie Brooks INR GUIDELINES SEE BELOW Normal [facility] Comment on above: Result Comment: TOMMY RED INR: 2.0 - 3.0 CONDITIONS NOT LISTED BELOW 2.5 - 3.5 FOR PROSTHETIC HEART VALVE REPLACEMENT 2.5 - 3.5 RECURRENT THROMBOSIS Performed By: #### C VDTBH #### [facility] [address] [place] [address] Dr. Suzie Brooks PT Coag (PPP) [Time] 10.3 s Normal 9.0-11.[address] [facility] Comment on above: Performed By: #### C VDTBH #### [facility] [address] [place] [address] Dr. Suzie Brooks PTTon 07-26-2022 aPTT Coag (Bld) [Time] 28.2 s Normal 22.3-36.[address] [facility] Comment on above: Performed By: #### C VDTBH #### [facility] [address] [address] [address] Suzie Brooks TSHon 07-26-2022 TSH 2.000 uIU/mL Normal 0.358-3.740 [facility] Comment on above: Performed By: #### O X24HR #### [facility] [address] [address] [address] Suzie Brooks XR CHEST 1 Von [...] BEHZAD CARRASQUILLO Date: 2022-07-26 10:[address] [facility] CREATININEon 07-18-2022 Creatinine [Mass/Vol] 0.93 mg/dL Normal 0.70-1.[address] [facility] Comment on above: Performed By: #### U DINA, LIPID, TSH, BNP, CMP, T7 #### [facility] [address] [address] [address] Suzie Brooks EGFR-AF VINCENTIAN >60 Normal >=60 [facility] Comment on above: Performed By: #### U DINA, LIPID, TSH, BNP, CMP, T7 #### [facility] [address] [address] [address] Suzie Brooks EGFR-NON AF VINCENTIAN >60 Normal >=60 [facility] Comment on above: Performed By: #### U DINA, LIPID, TSH, BNP, CMP, T7 #### [facility] [id number] Suzie Brooks XR IVPon 07-18-2022 XR IVP EXAMINATION: XR IVP HISTORY: Kidney stone COMPARISON: XR KUB 11/21/2021, CT abdomen pelvis 02/16/2022 TECHNIQUE: After obtaining patient consent a radio communications superintendent image was obtained followed by injection of [...] BEHZAD CARRASQUILLO Date: 2022-07-18 11:[address] [facility] INSULINon 05-16-2022 Insulin 59.0 uIU/mL Critically high 2.6-24.9 [facility] Comment on above: Performed By: #### U DINA, LIPID, TSH, BNP, CMP, T7 #### [facility] [address] [place] [address] Dr. Suzie Brooks BNPon 05-15-2022 Natriuretic peptide B (Bld) [Mass/Vol] 81.0 pg/mL Normal <=900.[address] [facility] Comment on above: Performed By: #### U DINA, LIPID, TSH, BNP, CMP, T7 #### [facility] [address] [address] [address] Suzie Brooks CBC AUTO DIFFon 05-15-2022 BASO # 0.1 103/ul Normal 0.0-0.1 [facility] Comment on above: Performed By: #### C VDTBH #### [facility] [address] [address] [address] Suzie Brooks Basophils/100 WBC (Bld) 0.6 % Normal 0.2-2.0 [facility] Comment on above: Performed By: #### C VDTBH #### [facility] [address] [place] [address] Dr. Suzie Brooks EO # 0.3 103/ul Normal 0.0-0.[address] [facility] Comment on above: Performed By: #### C VDTBH #### [facility] [address] [place] [address] Dr. Suzie Brooks Eosinophils/100 WBC (Bld) 2.9 % Normal 0.9-7.0 [facility] Comment on above: Performed By: #### C VDTBH #### [facility] [address] [place] [address] Dr. Suzie Brooks Erythrocyte distribution width (RBC) [Ratio] 14.1 % Normal 11.0-15.0 [facility] Comment on above: Performed By: #### C VDTBH #### [facility] [address] [place] [address] Dr. Suzie Brooks Hematocrit (Bld) [Volume fraction] 46.7 % Normal 42.0-54.0 [facility] Comment on above: Performed By: #### C VDTBH #### [facility] [address] [place] [address] Dr. Suzie Brooks Hemoglobin (Bld) [Mass/Vol] 15.4 g/dL Normal 14.0-18.0 [facility] Comment on above: Performed By: #### C VDTBH #### [facility] [address] [place] [address] Dr. Suzie Brooks IG # 0.03 10e3/ul Normal 0.00-0.[address] [facility] Comment on above: Performed By: #### C VDTBH #### [facility] [address] [place] [address] Dr. Suzie Brooks IG % 0.3 % Normal 0.0-0.[address] [facility] Comment on above: Performed By: #### C VDTBH #### [facility] [address] [place] [address] Dr. Suzie Brooks LYMPH # 2.6 103/ul Normal 1.2-3.8 [facility] Comment on above: Performed By: #### C VDTBH #### [facility] [address] [place] [address] Dr. Suzie Brooks Lymphocytes/100 WBC (Bld) 25.1 % Normal 20.5-60.0 [facility] Comment on above: Performed By: #### C VDTBH #### [facility] [address] [place] [address] Dr. Suzie Brooks MANUAL DIFF REQ NO Normal [facility] Comment on above: Performed By: #### C VDTBH #### [facility] [address] [place] [address] Dr. Suzie Brooks MCH (RBC) [Entitic mass] 28.6 pg Normal 25.9-34.0 [facility] Comment on above: Performed By: #### C VDTBH #### [facility] [address] [place] [address] Dr. Suzie Brooks MCHC (RBC) [Mass/Vol] 33.0 g/dL Normal 29.9-35.[address] [facility] Comment on above: Performed By: #### C VDTBH #### [facility] [address] [place] [address] Dr. Suzie Brooks MCV (RBC) [Entitic vol] 86.8 fL Normal 80.0-94.[address] [facility] Comment on above: Performed By: #### C VDTBH #### [facility] [address] [place] [address] Dr. Suzie Brooks MONO # 0.7 103/ul Normal 0.3-0.[address] [facility] Comment on above: Performed By: #### C VDTBH #### [facility] [address] [place] [address] Dr. Suzie Brooks Monocytes/100 WBC (Bld) 6.8 % Normal 1.7-12.0 [facility] Comment on above: Performed By: #### C VDTBH #### [facility] [address] [address] [address] Suzie rBooks NEUT # 6.5 103/ul Normal 1.4-6.[address] [facility] Comment on above: Performed By: #### C VDTBH #### [facility] [address] [address] [address] Suzie Brooks Neutrophils/100 WBC (Bld) 64.3 % Normal 43.0-75.[address] [facility] Comment on above: Performed By: #### C VDTBH #### [facility] [address] [address] [address] Suzie Brooks Platelet mean volume (Bld) [Entitic vol] 9.5 fL Normal 9.5-13.[address] [facility] Comment on above: Performed By: #### C VDTBH #### [facility] [address] [place] [address] Dr. Suzie Brooks PLT 273 103/ul Normal 150-[address] [facility] Comment on above: Performed By: #### C VDTBH #### [facility] [address] [place] [address] Dr. Suzie Brooks RBC 5.38 106/ul Normal 4.70-6.[address] [facility] Comment on above: Performed By: #### C VDTBH #### [facility] [address] [place] [address] Dr. Suzie Brooks WBC 10.2 103/ul Normal 4.0-11.[address] [facility] Comment on above: Performed By: #### C VDTBH #### [facility] [address] [place] [address] Dr. Suzie Brooks FREE THYROXINE INDEX T7on FTI 2.23 Normal 1.30-4.[address] [facility] Comment on above: Performed By: #### U DINA, LIPID, TSH, BNP, CMP, T7 #### [facility] [address] [place] [address] Dr. Suzie Brooks T3U 36.0 % Normal 33.0-40.[address] [facility] Comment on above: Performed By: #### U DINA, LIPID, TSH, BNP, CMP, T7 #### [facility] [address] [address] [address] Suzie Brooks T4 [Mass/Vol] 6.20 ug/dL Normal 4.50-12.10 [facility] Comment on above: Performed By: #### U DINA, LIPID, TSH, BNP, CMP, T7 #### [facility] [address] [address] [address] Suzie Brooks GLYCOHEMOGLOBIN A1Con 2021 ADA RECOMMENDATION SEE BELOW Normal [facility] Comment on above: Result Comment: ADA RECOMMENDED LIMIT 4.0 - 6.0 ADA THERAPEUTIC TARGET < 7.0 ACTION SUGGESTED > 7.0 Performed By: #### U DINA, LIPID, TSH, BNP, CMP, T7 #### [facility] [address] [place] [address] Dr. Suzie Brooks Glucose [Mass/Vol] 111 mg/dL Normal [facility] Comment on above: Performed By: #### U DINA, LIPID, TSH, BNP, CMP, T7 #### [facility] [address] [place] [address] Dr. Suzie Brooks HbA1c (Bld) [Mass fraction] 5.5 % Normal 4.5-6.2 [facility] Comment on above: Performed By: #### U DINA, LIPID, TSH, BNP, CMP, T7 #### [facility] [address] [place] [address] Dr. Suzie Brooks LIPID PROFILEon 05-15-2022 CHOL-HDL RATIO NORM SEE BELOW Normal [facility] Comment on above: Result Comment: 3.3 - 4.4 LOW RISK 4.4 - 7.1 AVERAGE RISK 7.1 - 11.0 MODERATE RISK >11.0 HIGH RISK Performed By: #### U DINA, LIPID, TSH, BNP, CMP, T7 #### [facility] [address] [place] [address] Dr. Suzie Brooks Cholesterol [Mass/Vol] 136 mg/dL Normal <=200 [facility] Comment on above: Performed By: #### U DINA, LIPID, TSH, BNP, CMP, T7 #### [facility] [address] [address] [address] Suzie Brooks Cholesterol in HDL [Mass/Vol] 34 mg/dL Critically low 40-[address] [facility] Comment on above: Performed By: #### U DINA, LIPID, TSH, BNP, CMP, T7 #### [facility] [address] [address] [address] Suzie Brooks Cholesterol in LDL [Mass/Vol] 49.8 mg/dL Normal [facility] Comment on above: Performed By: #### U DINA, LIPID, TSH, BNP, CMP, T7 #### [facility] [address] [address] [address] Suzie Brooks Cholesterol.total/Ch olesterol in HDL [Mass ratio] 4.0 {ratio} Normal [facility] Comment on above: Performed By: #### U DINA, LIPID, TSH, BNP, CMP, T7 #### [facility] [address] [address] [address] Suzie Brooks HDL NORMAL > or = 60 mg/dl - LO W CARDIOVASCULAR RISK <40 mg/dl - HIGH CARDIOVASCULAR RISK Normal [facility] Comment on above: Performed By: #### U DINA, LIPID, TSH, BNP, CMP, T7 #### [facility] [address] [address] [address] Suzie Brooks LDL CALC NORMAL SEE BELOW Normal [facility] Comment on above: Result Comment: <100 mg/dl OPTIMAL 100 - 129 mg/dl NEAR OR ABOVE OPTIMAL 130 - 159 mg/dl BORDERLINE HIGH 160 - 189 mg/dl HIGH >190 mg/dl VERY HIGH Performed By: #### U DINA, LIPID, TSH, BNP, CMP, T7 #### [facility] [address] [address] [address] Suzie Brooks Triglyceride [Mass/Vol] 261 mg/dL Critically high <=[address] [facility] Comment on above: Performed By: #### U DINA, LIPID, TSH, BNP, CMP, T7 #### [facility] [id number] [address] Suzie Brooks VLDL CALC 52.2 mg/dL Normal [facility] Comment on above: Performed By: #### U DINA, LIPID, TSH, BNP, CMP, T7 #### [facility] [address] [place] [address] Dr. Suzie Brooks PROF 14(COMP METB)on 022 Albumin [Mass/Vol] 3.6 g/dL Normal 3.4-5.0 [facility] Comment on above: Performed By: #### U DINA, LIPID, TSH, BNP, CMP, T7 #### [facility] [address] [place] [address] Dr. Suzie Brooks Albumin/Globulin [Mass ratio] 0.9 {ratio} Normal [facility] Comment on above: Performed By: #### U DINA, LIPID, TSH, BNP, CMP, T7 #### [facility] [address] [place] [address] Dr. Suzie Brooks ALP [Catalytic activity/Vol] 60 U/L Normal 46-116 [facility] Comment on above: Performed By: #### U DINA, LIPID, TSH, BNP, CMP, T7 #### [facility] [address] [place] [address] Dr. Suzie Brooks ALT [Catalytic activity/Vol] 36 U/L Normal 16-63 [facility] Comment on above: Performed By: #### U DINA, LIPID, TSH, BNP, CMP, T7 #### [facility] [address] [place] [address] Dr. Suzie Brooks Anion gap [Moles/Vol] 11.7 mmol/L Normal [facility] Comment on above: Performed By: #### U DINA, LIPID, TSH, BNP, CMP, T7 #### [facility] [address] [place] [address] Dr. Suzie Brooks AST [Catalytic activity/Vol] 28 U/L Normal 15-37 [facility] Comment on above: Performed By: #### U DINA, LIPID, TSH, BNP, CMP, T7 #### [facility] [address] [place] [address] Dr. Suzie Brooks Bilirubin [Mass/Vol] 0.6 mg/dL Normal 0.2-1.0 [facility] Comment on above: Performed By: #### U DINA, LIPID, TSH, BNP, CMP, T7 #### [facility] [address] [address] [address] Suzie Brooks Calcium [Mass/Vol] 8.8 mg/dL Normal 8.5-10.1 [facility] Comment on above: Performed By: #### U DINA, LIPID, TSH, BNP, CMP, T7 #### [facility] [address] [address] [address] Suzie Brooks Chloride [Moles/Vol] 102 mmol/L Normal 98-[address] [facility] Comment on above: Performed By: #### U DINA, LIPID, TSH, BNP, CMP, T7 #### [facility] [address] [address] [address] Suzie Brooks CO2 [Moles/Vol] 27.9 mmol/L Normal 21.0-32.0 [facility] Comment on above: Performed By: #### U DINA, LIPID, TSH, BNP, CMP, T7 #### [facility] [address] [address] [address] Suzie Brooks Creatinine [Mass/Vol] 0.98 mg/dL Normal 0.70-1.30 [facility] Comment on above: Performed By: #### U DINA, LIPID, TSH, BNP, CMP, T7 #### [facility] [address] [place] [address] Dr. Suzie Brooks EGFR-AF VINCENTIAN >60 Normal >=60 [facility] Comment on above: Performed By: #### U DINA, LIPID, TSH, BNP, CMP, T7 #### [facility] [address] [place] [address] Dr. Suzie Brooks EGFR-NON AF VINCENTIAN >60 Normal >=60 [facility] Comment on above: Performed By: #### U DINA, LIPID, TSH, BNP, CMP, T7 #### [facility] [address] [place] [address] Dr. Suzie Brooks Globulin (S) [Mass/Vol] 3.8 g/dL Normal [facility] Comment on above: Performed By: #### U DINA, LIPID, TSH, BNP, CMP, T7 #### [facility] [address] [address] [address] Suzie Brooks Glucose [Mass/Vol] 107 mg/dL Critically high 74-106 [facility] Comment on above: Performed By: #### U DINA, LIPID, TSH, BNP, CMP, T7 #### [facility] [address] [address] [address] Suzie Brooks Potassium [Moles/Vol] 3.6 mmol/L Normal 3.5-5.1 [facility] Comment on above: Performed By: #### U DINA, LIPID, TSH, BNP, CMP, T7 #### [facility] [address] [place] [address] Dr. Suzie Brooks Protein [Mass/Vol] 7.4 g/dL Normal 6.4-8.2 [facility] Comment on above: Performed By: #### U DINA, LIPID, TSH, BNP, CMP, T7 #### [facility] [address] [place] [address] Dr. Suzie Brooks Sodium [Moles/Vol] 138 mmol/L Normal 136-145 [facility] Comment on above: Performed By: #### U DINA, LIPID, TSH, BNP, CMP, T7 #### [facility] [address] [place] [address] Dr. Suzie Brooks Urea nitrogen [Mass/Vol] 12.0 mg/dL Normal 7.0-18.[address] [facility] Comment on above: Performed By: #### U DINA, LIPID, TSH, BNP, CMP, T7 #### [facility] [address] [place] [address] Dr. Suzie Brooks Urea nitrogen/Creatinine [Mass ratio] 12.2 mg/mg Normal [facility] Comment on above: Performed By: #### U DINA, LIPID, TSH, BNP, CMP, T7 #### [facility] [address] [place] [address] Dr. Suzie Brooks TSHon 05-15-2022 TSH 2.356 uIU/mL Normal 0.358-3.740 [facility] Comment on above: Performed By: #### U DINA, LIPID, TSH, BNP, CMP, T7 #### [facility] [address] [address] [address] Suzie Brooks URIC ACID SERUMon 05-15-2022 Urate [Mass/Vol] 5.2 mg/dL Normal 3.5-7.2 [facility] Comment on above: Performed By: #### U DINA, LIPID, TSH, BNP, CMP, T7 #### [facility] [address] [address] [address] Suzie Brooks CALCULI, URINARYon 2 2,8 Dihydroxyadenine Normal [facility] Comment on above: Performed By: #### U DINA, LIPID, TSH, BNP, CMP, T7 #### [facility] [address] [address] [address] Suzie Brooks Ammonium Acid Urate Normal [facility] Comment on above: Performed By: #### U DINA, LIPID, TSH, BNP, CMP, T7 #### [facility] [address] [address] [address] Suzie Brooks Bilirubin Ql (U) Normal [facility] Comment on above: Performed By: #### U DINA, LIPID, TSH, BNP, CMP, T7 #### [facility] [address] [address] [address] Suzie Brooks Ca Oxalate Dihydrate Normal [facility] Comment on above: Performed By: #### U DINA, LIPID, TSH, BNP, CMP, T7 #### [facility] [address] [address] [address] Suzie Brooks CaHPO4 (Brushite) Normal [facility] Comment on above: Performed By: #### U DINA, LIPID, TSH, BNP, CMP, T7 #### [facility] [address] [address] [address] Suzie Brooks Calcium Bilirubinate Normal [facility] Comment on above: Performed By: #### U DINA, LIPID, TSH, BNP, CMP, T7 #### [facility] [address] [address] [address] Suzie Brooks Calcium Carbonate Normal [facility] Comment on above: Performed By: #### U DINA, LIPID, TSH, BNP, CMP, T7 #### [facility] [address] [address] [address] Suzie Brooks Calcium Oxalate Monohydrate 70 % Normal [facility] Comment on above: Performed By: #### U DINA, LIPID, TSH, BNP, CMP, T7 #### [facility] [address] [address] [address] Suzie Brooks Calcium Palmitate Normal [facility] Comment on above: Performed By: #### U DINA, LIPID, TSH, BNP, CMP, T7 #### [facility] [address] [address] [address] Suzie Brooks Calcium Phosphate Normal [facility] Comment on above: Performed By: #### U DINA, LIPID, TSH, BNP, CMP, T7 #### [facility] [address] [address] [address] Suzie Brooks Calcium Stearate Normal [facility] Comment on above: Performed By: #### U DINA, LIPID, TSH, BNP, CMP, T7 #### [facility] [address] [address] [address] Suzie Brooks Carbonate Apatite Normal [facility] Comment on above: Performed By: #### U DINA, LIPID, TSH, BNP, CMP, T7 #### [facility] [address] [address] [address] Suzie Brooks Cellular Material [facility] Comment on above: Performed By: #### U DINA, LIPID, TSH, BNP, CMP, T7 #### [facility] [address] [address] [address] Suzie Brooks Cholesterol [facility] Comment on above: Performed By: #### U DINA, LIPID, TSH, BNP, CMP, T7 #### [facility] [address] [address] [address] Suzie Brooks Color (U) Brown Normal [facility] Comment on above: Performed By: #### U DINA, LIPID, TSH, BNP, CMP, T7 #### [facility] [address] [address] [address] Suzie Brooks Comment [facility] Comment on above: Performed By: #### U DINA, LIPID, TSH, BNP, CMP, T7 #### [facility] [address] [address] [address] Suzie Brooks Comment Comment Normal [facility] Comment on above: Result Comment: Calc ulus received in liquid. Wet calculi must be dried before analysis, which delays reporting of results. Leaving calculi in liquid (such as water, saline, blood, urine) may lead to changes in composition. Performed By: #### U DINA, LIPID, TSH, BNP, CMP, T7 #### [facility] [address] [address] [address] Suzie Brooks Comment: Comment Normal [facility] Comment on above: Result Comment: Fantasma baez questions regarding Calculi Analysis contact [employer] at: [phone]. Performed By: #### U DINA, LIPID, TSH, BNP, CMP, T7 #### [facility] [address] [address] [address] Suzie Brooks Composition Comment Normal [facility] Comment on above: Result Comment: Perc entage (Represents the % composition) Performed By: #### U DINA, LIPID, TSH, BNP, CMP, T7 #### [facility] [address] [address] [address] Suzie Brooks Cystine Normal [facility] Comment on above: Performed By: #### U DINA, LIPID, TSH, BNP, CMP, T7 #### [facility] [address] [address] [address] Suzie Brooks Disclaimer: Comment Normal [facility] Comment on above: Result Comment: This test was developed and its performance characteristics determined by [facility]. It has not been cleared or approved by the Food and Drug Administration. Performed By: #### U DINA, LIPID, TSH, BNP, CMP, T7 #### [facility] [address] [address] [address] Suzie Brooks Dried Blood Normal [facility] Comment on above: Performed By: #### U DINA, LIPID, TSH, BNP, CMP, T7 #### [facility] [address] [address] [address] Suzie Brooks Drug or Metabolite Normal [facility] Comment on above: Performed By: #### U DINA, LIPID, TSH, BNP, CMP, T7 #### [facility] [address] [address] [address] Suzie Brooks Hydroxyapatite Normal [facility] Comment on above: Performed By: #### U DINA, LIPID, TSH, BNP, CMP, T7 #### [facility] [address] [address] [address] Suzie Brooks Mg NH4 PO4 (Struvite) [facility] Comment on above: Performed By: #### U DINA, LIPID, TSH, BNP, CMP, T7 #### [facility] [address] [address] [address] Suzie Brooks MgHPO4 ([place]) [facility] Comment on above: Performed By: #### U DINA, LIPID, TSH, BNP, CMP, T7 #### [facility] [address] [address] [address] Suzie Brooks Other component(s) [facility] Comment on above: Performed By: #### U DINA, LIPID, TSH, BNP, CMP, T7 #### [facility] [address] [address] [address] Suzie Brooks PDF . [facility] Comment on above: Performed By: #### U DINA, LIPID, TSH, BNP, CMP, T7 #### [facility] [address] [address] [address] Suzie Brooks Photo Comment [facility] Comment on above: Result Comment: Phot ograph will follow under a separate cover Performed By: #### U DINA, LIPID, TSH, BNP, CMP, T7 #### [facility] [address] [address] [address] Suzie Brooks Please note: Comment [facility] Comment on above: Result Comment: Calc shamika report will follow via computer, mail or culvert installer delivery. Performed By: #### U DINA, LIPID, TSH, BNP, CMP, T7 #### [facility] [address] [address] [address] Suzie Brooks Size 6x4 Normal [facility] Comment on above: Result Comment: Mult iple pieces received. Dimensions of the largest piece reported. Performed By: #### U DINA, LIPID, TSH, BNP, CMP, T7 #### [facility] [address] [address] [address] Suzie Brooks Sodium Acid Urate Normal [facility] Comment on above: Performed By: #### U DINA, LIPID, TSH, BNP, CMP, T7 #### [facility] [address] [address] [address] Suzie Brooks Source Comment [facility] Comment on above: Result Comment: Not provided Performed By: #### U DINA, LIPID, TSH, BNP, CMP, T7 #### [facility] [address] [address] [address] Suzie Brooks [employer] [facility] Comment on above: Performed By: #### U DINA, LIPID, TSH, BNP, CMP, T7 #### [facility] [address] [address] [address] Suzie Brooks Uric Acid 30 % [facility] Comment on above: Performed By: #### U DINA, LIPID, TSH, BNP, CMP, T7 #### [facility] [address] [address] [address] Suzie Brooks Uric Acid Dihydrate Normal [facility] Comment on above: Performed By: #### U DINA, LIPID, TSH, BNP, CMP, T7 #### [facility] [address] [address] [address] Suzie Brooks Weight 99 mg [facility] Comment on above: Performed By: #### U DINA, LIPID, TSH, BNP, CMP, T7 #### [facility] [address] [address] [address] Suzie Brooks Xanthine [facility] Comment on above: Performed By: #### U DINA, LIPID, TSH, BNP, CMP, T7 #### [facility] [address] [address] [address] Suzie Brooks CBC AUTO DIFFon 02-18-2022 BASO # 0.0 103/ul Normal 0.0-0.1 [facility] Comment on above: Performed By: #### U DINA, LIPID, TSH, BNP, CMP, T7 #### [facility] [address] [place] [address] Dr. Suzie Brooks Basophils/100 WBC (Bld) 0.3 % Normal 0.2-2.[address] [facility] Comment on above: Performed By: #### U DINA, LIPID, TSH, BNP, CMP, T7 #### [facility] [address] [place] [address] Dr. Suzie Brooks EO # 0.3 103/ul Normal 0.0-0.[address] [facility] Comment on above: Performed By: #### U DINA, LIPID, TSH, BNP, CMP, T7 #### [facility] [address] [place] [address] Dr. Suzie Brooks Eosinophils/100 WBC (Bld) 2.3 % Normal 0.9-7.[address] [facility] Comment on above: Performed By: #### U DINA, LIPID, TSH, BNP, CMP, T7 #### [facility] [address] [place] [address] Dr. Suzie Brooks Erythrocyte distribution width (RBC) [Ratio] 14.2 % Normal 11.0-15.[address] [facility] Comment on above: Performed By: #### U DINA, LIPID, TSH, BNP, CMP, T7 #### [facility] [address] [place] [address] Dr. Suzie Brooks Hematocrit (Bld) [Volume fraction] 41.3 % Critically low 42.0-54.[address] [facility] Comment on above: Performed By: #### U DINA, LIPID, TSH, BNP, CMP, T7 #### [facility] [address] [place] [address] Dr. Suzie Brooks Hemoglobin (Bld) [Mass/Vol] 13.4 g/dL Critically low 14.0-18.0 [facility] Comment on above: Performed By: #### U DINA, LIPID, TSH, BNP, CMP, T7 #### [facility] [address] [place] [address] Dr. Suzie Brooks IG # 0.03 10e3/ul Normal 0.00-0.03 [facility] Comment on above: Performed By: #### U DINA, LIPID, TSH, BNP, CMP, T7 #### [facility] [address] [address] [address] Suzie Brooks IG % 0.3 % Normal 0.0-0.5 [facility] Comment on above: Performed By: #### U DINA, LIPID, TSH, BNP, CMP, T7 #### [facility] [address] [place] [address] Dr. Suzie Brooks LYMPH # 2.0 103/ul Normal 1.2-3.8 [facility] Comment on above: Performed By: #### U DINA, LIPID, TSH, BNP, CMP, T7 #### [facility] [address] [place] [address] Dr. Suzie Brooks Lymphocytes/100 WBC (Bld) 18.0 % Critically low 20.5-60.0 [facility] Comment on above: Performed By: #### U DINA, LIPID, TSH, BNP, CMP, T7 #### [facility] [address] [place] [address] Dr. Suzie Brooks MANUAL DIFF REQ NO Normal [facility] Comment on above: Performed By: #### U DINA, LIPID, TSH, BNP, CMP, T7 #### [facility] [address] [place] [address] Dr. Suzie Brooks MCH (RBC) [Entitic mass] 28.8 pg Normal 25.9-34.0 [facility] Comment on above: Performed By: #### U DINA, LIPID, TSH, BNP, CMP, T7 #### [facility] [address] [place] [address] Dr. Suzie Brooks MCHC (RBC) [Mass/Vol] 32.4 g/dL Normal 29.9-35.2 [facility] Comment on above: Performed By: #### U DINA, LIPID, TSH, BNP, CMP, T7 #### [facility] [address] [place] [address] Dr. Suzie Brooks MCV (RBC) [Entitic vol] 88.6 fL Normal 80.0-94.[address] [facility] Comment on above: Performed By: #### U DINA, LIPID, TSH, BNP, CMP, T7 #### [facility] [address] [address] [address] Suzie Brooks MONO # 1.0 103/ul Critically high 0.3-0.8 [facility] Comment on above: Performed By: #### U DINA, LIPID, TSH, BNP, CMP, T7 #### [facility] [address] [place] [address] Dr. Suzie Brooks Monocytes/100 WBC (Bld) 9.2 % Normal 1.7-12.[address] [facility] Comment on above: Performed By: #### U DINA, LIPID, TSH, BNP, CMP, T7 #### [facility] [address] [place] [address] Dr. Suzie Brooks NEUT # 7.9 103/ul Critically high 1.4-6.5 [facility] Comment on above: Performed By: #### U DINA, LIPID, TSH, BNP, CMP, T7 #### [facility] [address] [place] [address] Dr. Suzie Brooks Neutrophils/100 WBC (Bld) 69.9 % Normal 43.0-75.[address] [facility] Comment on above: Performed By: #### U DINA, LIPID, TSH, BNP, CMP, T7 #### [facility] [address] [place] [address] Dr. Suzie Brooks Platelet mean volume (Bld) [Entitic vol] 9.6 fL Normal 9.5-13.[address] [facility] Comment on above: Performed By: #### U DINA, LIPID, TSH, BNP, CMP, T7 #### [facility] [address] [place] [address] Dr. Suzie Brooks PLT 218 103/ul Normal 150-[address] [facility] Comment on above: Performed By: #### U DINA, LIPID, TSH, BNP, CMP, T7 #### [facility] [address] [place] [address] Dr. Suzie Brooks RBC 4.66 106/ul Critically low 4.70-6.10 [facility] Comment on above: Performed By: #### U DINA, LIPID, TSH, BNP, CMP, T7 #### [facility] [address] [address] [address] Suzie Brooks WBC 11.3 103/ul Critically high 4.0-11.0 [facility] Comment on above: Performed By: #### U DINA, LIPID, TSH, BNP, CMP, T7 #### [facility] [address] [address] [address] Suzie Brooks CULTURE URINEon 02-18-2022 CULTURE URINE Culture Observations : NO GROWTH. Normal [facility] Comment on above: Performed By: #### M AG24 #### [facility] [address] [address] [address] Suzie Brooks Covid-19 PCR (CVDTB)on 02-08 SARS-CoV-2 (COVID-19) RNA SUKHJINDER+probe Ql (Unsp spec) Not detected Normal NOT DETECTED [facility] Comment on above: Result Comment: When [...] for this test is supported by the Finish Repairer of Health and Human Service's declaration that [...] used). Performed By: #### C VDTBH #### [facility] [address] [address] [address] Suzie Brooks PROF 14(COMP METB)on 022 Albumin [Mass/Vol] 3.0 g/dL Critically low 3.4-5.0 [facility] Comment on above: Performed By: #### O X24HR #### [facility] [address] [place] [address] Dr. Suzie Brooks Albumin/Globulin [Mass ratio] 0.9 {ratio} Normal [facility] Comment on above: Performed By: #### O X24HR #### [facility] [address] [place] [address] Dr. Suzie Broosk ALP [Catalytic activity/Vol] 49 U/L Normal 46-116 [facility] Comment on above: Performed By: #### O X24HR #### [facility] [address] [place] [address] Dr. Suzie Brooks ALT [Catalytic activity/Vol] 35 U/L Normal 16-63 [facility] Comment on above: Performed By: #### O X24HR #### [facility] [address] [place] [address] Dr. Suzie Brooks Anion gap [Moles/Vol] 11.8 mmol/L Normal [facility] Comment on above: Performed By: #### O X24HR #### [facility] [address] [place] [address] Dr. Suzie Brooks AST [Catalytic activity/Vol] 27 U/L Normal 15-37 [facility] Comment on above: Performed By: #### O X24HR #### [facility] [address] [place] [address] Dr. Suzie Brooks Bilirubin [Mass/Vol] 0.4 mg/dL Normal 0.2-1.0 [facility] Comment on above: Performed By: #### O X24HR #### [facility] [address] [place] [address] Dr. Suzie Brooks Calcium [Mass/Vol] 7.6 mg/dL Critically low 8.5-10.1 [facility] Comment on above: Performed By: #### O X24HR #### [facility] [address] [address] [address] Suzie Brooks Chloride [Moles/Vol] 106 mmol/L Normal 98-107 [facility] Comment on above: Performed By: #### O X24HR #### [facility] [address] [address] [address] Suzie Brooks CO2 [Moles/Vol] 26.2 mmol/L Normal 21.0-32.0 [facility] Comment on above: Performed By: #### O X24HR #### [facility] [address] [address] [address] Suzie Brooks Creatinine [Mass/Vol] 1.08 mg/dL Normal 0.70-1.30 [facility] Comment on above: Performed By: #### O X24HR #### [facility] [address] [place] [address] Dr. Suzie Brooks EGFR-AF VINCENTIAN >60 Normal >=60 [facility] Comment on above: Performed By: #### O X24HR #### [facility] [address] [place] [address] Dr. Suzie Brooks EGFR-NON AF VINCENTIAN >60 Normal >=60 [facility] Comment on above: Performed By: #### O X24HR #### [facility] [address] [address] [address] Suzie Brooks Globulin (S) [Mass/Vol] 3.2 g/dL Normal [facility] Comment on above: Performed By: #### O X24HR #### [facility] [address] [place] [address] Dr. Suzie Brooks Glucose [Mass/Vol] 107 mg/dL Critically high 74-106 [facility] Comment on above: Performed By: #### O X24HR #### [facility] [address] [address] [address] Suzie Brooks Potassium [Moles/Vol] 4.0 mmol/L Normal 3.5-5.1 [facility] Comment on above: Performed By: #### O X24HR #### [facility] [address] [place] [address] Dr. Suzie Brooks Protein [Mass/Vol] 6.2 g/dL Critically low 6.4-8.2 [facility] Comment on above: Performed By: #### O X24HR #### [facility] [address] [place] [address] Dr. Suzie Brooks Sodium [Moles/Vol] 140 mmol/L Normal 136-145 [facility] Comment on above: Performed By: #### O X24HR #### [facility] [address] [place] [address] Dr. Suzie Brooks Urea nitrogen [Mass/Vol] 14.0 mg/dL Normal 7.0-18.0 [facility] Comment on above: Performed By: #### O X24HR #### [facility] [address] [place] [address] Dr. Suzie Brooks Urea nitrogen/Creatinine [Mass ratio] 13.0 mg/mg Normal [facility] Comment on above: Performed By: #### O X24HR #### [facility] [address] [place] [address] Dr. Suzie Brooks CBC AUTO DIFFon 02-17-2022 BASO # 0.1 103/ul Normal 0.0-0.1 [facility] Comment on above: Performed By: #### M AG24 #### [facility] [address] [place] [address] Dr. Suzie Brooks Basophils/100 WBC (Bld) 0.4 % Normal 0.2-2.0 [facility] Comment on above: Performed By: #### M AG24 #### [facility] [address] [place] [address] Dr. Suzie Brooks EO # 0.3 103/ul Normal 0.0-0.7 [facility] Comment on above: Performed By: #### M AG24 #### [facility] [address] [place] [address] Dr. Suzie Brooks Eosinophils/100 WBC (Bld) 2.3 % Normal 0.9-7.0 [facility] Comment on above: Performed By: #### M AG24 #### [facility] [address] [place] [address] Dr. Suzie Brooks Erythrocyte distribution width (RBC) [Ratio] 13.8 % Normal 11.0-15.0 [facility] Comment on above: Performed By: #### M AG24 #### [facility] [address] [place] [address] Dr. Suzie Brooks Hematocrit (Bld) [Volume fraction] 45.2 % Normal 42.0-54.0 [facility] Comment on above: Performed By: #### M AG24 #### [facility] [address] [place] [address] Dr. Suzie Brooks Hemoglobin (Bld) [Mass/Vol] 14.9 g/dL Normal 14.0-18.0 [facility] Comment on above: Performed By: #### M AG24 #### [facility] [address] [place] [address] Dr. Suzie Brooks IG # 0.05 10e3/ul Critically high 0.00-0.03 [facility] Comment on above: Performed By: #### M AG24 #### [facility] [address] [place] [address] Dr. Suzie Brooks IG % 0.4 % Normal 0.0-0.5 [facility] Comment on above: Performed By: #### M AG24 #### [facility] [address] [place] [address] Dr. Suzie Brooks LYMPH # 2.5 103/ul Normal 1.2-3.8 [facility] Comment on above: Performed By: #### M AG24 #### [facility] [address] [place] [address] Dr. Suzie Brooks Lymphocytes/100 WBC (Bld) 17.3 % Critically low 20.5-60.0 [facility] Comment on above: Performed By: #### M AG24 #### [facility] [address] [place] [address] Dr. Suzie Brooks MANUAL DIFF REQ NO Normal [facility] Comment on above: Performed By: #### M AG24 #### [facility] [address] [place] [address] Dr. Suzie Brooks MCH (RBC) [Entitic mass] 28.7 pg Normal 25.9-34.0 [facility] Comment on above: Performed By: #### M AG24 #### [facility] [address] [place] [address] Dr. Suzie Brooks MCHC (RBC) [Mass/Vol] 33.0 g/dL Normal 29.9-35.[address] [facility] Comment on above: Performed By: #### M AG24 #### [facility] [address] [place] [address] Dr. Suzie Brooks MCV (RBC) [Entitic vol] 87.1 fL Normal 80.0-94.0 [facility] Comment on above: Performed By: #### M AG24 #### [facility] [address] [place] [address] Dr. Suzie Brooks MONO # 1.0 103/ul Critically high 0.3-0.8 [facility] Comment on above: Performed By: #### M AG24 #### [facility] [address] [place] [address] Dr. Suzie Brooks Monocytes/100 WBC (Bld) 6.8 % Normal 1.7-12.0 [facility] Comment on above: Performed By: #### M AG24 #### [facility] [address] [place] [address] Dr. Suzie Brooks NEUT # 10.3 103/ul Critically high 1.4-6.5 [facility] Comment on above: Performed By: #### M AG24 #### [facility] [address] [place] [address] Dr. Suzie Brooks Neutrophils/100 WBC (Bld) 72.8 % Normal 43.0-75.[address] [facility] Comment on above: Performed By: #### M AG24 #### [facility] [address] [place] [address] Dr. Suzie Brooks Platelet mean volume (Bld) [Entitic vol] 9.7 fL Normal 9.5-13.[address] [facility] Comment on above: Performed By: #### M AG24 #### [facility] [address] [place] [address] Dr. Suzie Brooks PLT 253 103/ul Normal 150-450 [facility] Comment on above: Performed By: #### M AG24 #### [facility] [address] [place] [address] Dr. Suzie Brooks RBC 5.19 106/ul Normal 4.70-6.10 [facility] Comment on above: Performed By: #### M AG24 #### [facility] [address] [place] [address] Dr. Suzie Brooks WBC 14.2 103/ul Critically high 4.0-11.0 [facility] Comment on above: Performed By: #### M AG24 #### [facility] [address] [place] [address] Dr. Suzie Brooks CULTURE BLOODon 02-17-2022 Microscopic examination of blood, culture Culture Observations: NO GROWTH AT 5 DAYS. Normal [facility] Comment on above: Performed By: #### M AG24 #### [facility] [address] [place] [address] Dr. Suzie Brooks Microscopic examination of blood, culture Culture Observations: NO GROWTH AT 5 DAYS. Normal [facility] Comment on above: Performed By: #### M AG24 #### [facility] [address] [place] [address] Dr. Suzie Brooks ER URINE PROFILEon 2 Bilirubin Ql (U) Negative Normal NEGATIVE [facility] Comment on above: Performed By: #### E RUR #### [facility] [address] [place] [address] Dr. Suzie Brooks Clarity (U) CLEAR Normal CLEAR [facility] Comment on above: Performed By: #### E RUR #### [facility] [address] [place] [address] Dr. Suzie Brooks Color (U) DK. YELLOW Normal YELLOW [facility] Comment on above: Performed By: #### E RUR #### [facility] [address] [place] [address] Dr. Suzie Brooks ERUAHD A micrscopic examina tion will be performed if indicated. Normal [facility] Comment on above: Performed By: #### E RUR #### [facility] [address] [place] [address] Dr. Suzie Brooks Glucose Ql (U) Negative Normal NEGATIVE [facility] Comment on above: Performed By: #### E RUR #### [facility] [address] [place] [address] Dr. Suzie Brooks Hemoglobin Ql (U) Negative Normal NEGATIVE [facility] Comment on above: Performed By: #### E RUR #### [facility] [address] [place] [address] Dr. Suzie Brooks Ketones Ql (U) Negative Normal NEGATIVE [facility] Comment on above: Performed By: #### E RUR #### [facility] [address] [place] [address] Dr. Suzie Brooks LEUKOCYTES Negative Normal NEGATIVE [facility] Comment on above: Performed By: #### E RUR #### [facility] [address] [place] [address] Dr. Suzie Brooks Nitrite Ql (U) Negative Normal NEGATIVE [facility] Comment on above: Performed By: #### E RUR #### [facility] [address] [place] [address] Dr. Suzie Brooks pH (U) 5.0 [pH] Normal 5-9 [facility] Comment on above: Performed By: #### E RUR #### [facility] [address] [place] [address] Dr. Suzie Brooks SPEC GRAVITY >=1.030 Abnormal 1.005-<=1.02 5 [facility] Comment on above: Performed By: #### E RUR #### [facility] [address] [place] [address] Dr. Suzie Brooks UA PROTEIN Negative Normal NEGATIVE/ TRACE [facility] Comment on above: Performed By: #### E RUR #### [facility] [address] [place] [address] Dr. Suzie Brooks UR MICRO IND NOT INDICATED Normal [facility] Comment on above: Performed By: #### E RUR #### [facility] [address] [address] [address] Suzie Brooks Urobilinogen Qn (U) 0.2 {Behzad'U}/dL Normal 0.2 - 1. 0 [facility] Comment on above: Performed By: #### E RUR #### [facility] [address] [place] [address] Dr. Suzie Brooks LACTATE/LACTIC ACIDon 2021 Lactate [Moles/Vol] 1.4 mmol/L Normal 0.4-1.9 [facility] Comment on above: Performed By: #### U DINA, LIPID, TSH, BNP, CMP, T7 #### [facility] [address] [place] [address] Dr. Suzie Brooks PROF CHEM 8 (BAS METB)on Anion gap [Moles/Vol] 12.2 mmol/L Normal [facility] Comment on above: Performed By: #### U DINA, LIPID, TSH, BNP, CMP, T7 #### [facility] [address] [place] [address] Dr. Suzie Brooks Calcium [Mass/Vol] 8.1 mg/dL Critically low 8.5-10.1 Th [facility] Comment on above: Performed By: #### U DINA, LIPID, TSH, BNP, CMP, T7 #### [facility] [address] [place] [address] Dr. Suzie Brooks Chloride [Moles/Vol] 103 mmol/L Normal 98-107 [facility] Comment on above: Performed By: #### U DINA, LIPID, TSH, BNP, CMP, T7 #### [facility] [address] [place] [address] Dr. Suzie Brooks CO2 [Moles/Vol] 26.1 mmol/L Normal 21.0-32.0 [facility] Comment on above: Performed By: #### U DINA, LIPID, TSH, BNP, CMP, T7 #### [facility] [address] [place] [address] Dr. Suzie Brooks Creatinine [Mass/Vol] 1.06 mg/dL Normal 0.70-1.30 [facility] Comment on above: Performed By: #### U DINA, LIPID, TSH, BNP, CMP, T7 #### [facility] [address] [address] [address] Suzie Brooks EGFR-AF VINCENTIAN >60 Normal >=60 [facility] Comment on above: Performed By: #### U DINA, LIPID, TSH, BNP, CMP, T7 #### [facility] [address] [address] [address] Suzie Brooks EGFR-NON AF VINCENTIAN >60 Normal >=60 [facility] Comment on above: Performed By: #### U DINA, LIPID, TSH, BNP, CMP, T7 #### [facility] [address] [address] [address] Suzie Brooks Glucose [Mass/Vol] 138 mg/dL Critically high 74-106 [facility] Comment on above: Performed By: #### U DINA, LIPID, TSH, BNP, CMP, T7 #### [facility] [address] [address] [address] Suzie Brooks Potassium [Moles/Vol] 4.3 mmol/L Normal 3.5-5.1 [facility] Comment on above: Performed By: #### U DINA, LIPID, TSH, BNP, CMP, T7 #### [facility] [address] [address] [address] Suzie Brooks Sodium [Moles/Vol] 137 mmol/L Normal 136-145 [facility] Comment on above: Performed By: #### U DINA, LIPID, TSH, BNP, CMP, T7 #### [facility] [address] [address] [address] Suzie Brooks Urea nitrogen [Mass/Vol] 14.0 mg/dL Normal 7.0-18.0 [facility] Comment on above: Performed By: #### U DINA, LIPID, TSH, BNP, CMP, T7 #### [facility] [address] [place] [address] Dr. Suzie Brooks Urea nitrogen/Creatinine [Mass ratio] 13.2 mg/mg Normal [facility] Comment on above: Performed By: #### U DINA, LIPID, TSH, BNP, CMP, T7 #### [facility] [address] [place] [address] Dr. Suzie Brooks TROPONIN, HIGH SENSITIVITYon 02-17-2022 HSTROP 8.4 pg/mL Normal 4.0-76.[address] [facility] Comment on above: Result Comment: CUT- OFF POINTS HAVE BEEN ESTABLISHED BASED ON THE FOURTH UNIVERSAL DEFINITIONS OF MYOCARDIAL INFARCTION. THE UPPER REFERENCE LIMIT (URL) OF TROPONIN, DEFINED THE 99TH PERCENTILE OF cTnI DISTRIBUTION IN A REFERENCE POPULATION, HAS BEEN CONFIRMED THE DECISION THRESHOLD FOR [place] DIAGNOSIS. Performed By: #### U DINA, LIPID, TSH, BNP, CMP, T7 #### [facility] [address] [place] [address] Dr. Suzie Brooks CBC AUTO DIFFon 02-16-2022 BASO # 0.1 103/ul Normal 0.0-0.[address] [facility] Comment on above: Performed By: #### U DINA, LIPID, TSH, BNP, CMP, T7 #### [facility] [address] [place] [address] Dr. Suzie Brooks Basophils/100 WBC (Bld) 0.4 % Normal 0.2-2.[address] [facility] Comment on above: Performed By: #### U DINA, LIPID, TSH, BNP, CMP, T7 #### [facility] [address] [place] [address] Dr. Suzie Brooks EO # 0.3 103/ul Normal 0.0-0.[address] [facility] Comment on above: Performed By: #### U DINA, LIPID, TSH, BNP, CMP, T7 #### [facility] [address] [place] [address] Dr. Suzie Brooks Eosinophils/100 WBC (Bld) 2.5 % Normal 0.9-7.[address] [facility] Comment on above: Performed By: #### U DINA, LIPID, TSH, BNP, CMP, T7 #### [facility] [address] [place] [address] Dr. Suzie Brooks Erythrocyte distribution width (RBC) [Ratio] 13.9 % Normal 11.0-15.[address] [facility] Comment on above: Performed By: #### U DINA, LIPID, TSH, BNP, CMP, T7 #### [facility] [address] [place] [address] Dr. Suzie Brooks Hematocrit (Bld) [Volume fraction] 46.6 % Normal 42.0-54.0 [facility] Comment on above: Performed By: #### U DINA, LIPID, TSH, BNP, CMP, T7 #### [facility] [address] [place] [address] Dr. Suzie Brooks Hemoglobin (Bld) [Mass/Vol] 15.7 g/dL Normal 14.0-18.[address] [facility] Comment on above: Performed By: #### U DINA, LIPID, TSH, BNP, CMP, T7 #### [facility] [address] [place] [address] Dr. Suzie Brooks IG # 0.05 10e3/ul Critically high 0.00-0.03 [facility] Comment on above: Performed By: #### U DINA, LIPID, TSH, BNP, CMP, T7 #### [facility] [address] [address] [address] Suzie Brooks IG % 0.4 % Normal 0.0-0.5 [facility] Comment on above: Performed By: #### U DINA, LIPID, TSH, BNP, CMP, T7 #### [facility] [address] [place] [address] Dr. Suzie Brooks LYMPH # 3.7 103/ul Normal 1.2-3.[address] [facility] Comment on above: Performed By: #### U DINA, LIPID, TSH, BNP, CMP, T7 #### [facility] [address] [place] [address] Dr. Suzie Brooks Lymphocytes/100 WBC (Bld) 26.6 % Normal 20.5-60.[address] [facility] Comment on above: Performed By: #### U DINA, LIPID, TSH, BNP, CMP, T7 #### [facility] [address] [place] [address] Dr. Suzie Brooks MANUAL DIFF REQ NO Normal [facility] Comment on above: Performed By: #### U DINA, LIPID, TSH, BNP, CMP, T7 #### [facility] [address] [place] [address] Dr. Suzie Brooks MCH (RBC) [Entitic mass] 29.2 pg Normal 25.9-34.[address] [facility] Comment on above: Performed By: #### U DINA, LIPID, TSH, BNP, CMP, T7 #### [facility] [address] [place] [address] Dr. Suzie Brooks MCHC (RBC) [Mass/Vol] 33.7 g/dL Normal 29.9-35.[address] [facility] Comment on above: Performed By: #### U DINA, LIPID, TSH, BNP, CMP, T7 #### [facility] [address] [place] [address] Dr. Suzie Brooks MCV (RBC) [Entitic vol] 86.6 fL Normal 80.0-94.[address] [facility] Comment on above: Performed By: #### U DINA, LIPID, TSH, BNP, CMP, T7 #### [facility] [address] [place] [address] Dr. Suzie Brooks MONO # 1.0 103/ul Critically high 0.3-0.8 [facility] Comment on above: Performed By: #### U DINA, LIPID, TSH, BNP, CMP, T7 #### [facility] [address] [place] [address] Dr. Suzie Brooks Monocytes/100 WBC (Bld) 7.2 % Normal 1.7-12.[address] [facility] Comment on above: Performed By: #### U DINA, LIPID, TSH, BNP, CMP, T7 #### [facility] [address] [place] [address] Dr. Suzie Brooks NEUT # 8.7 103/ul Critically high 1.4-6.5 [facility] Comment on above: Performed By: #### U DINA, LIPID, TSH, BNP, CMP, T7 #### [facility] [address] [place] [address] Dr. Suzie Brooks Neutrophils/100 WBC (Bld) 62.9 % Normal 43.0-75.[address] [facility] Comment on above: Performed By: #### U DINA, LIPID, TSH, BNP, CMP, T7 #### [facility] [address] [place], [place] [address] Dr. Suzie Brooks Platelet mean volume (Bld) [Entitic vol] 9.4 fL Critically low 9.5-13.5 [facility] Comment on above: Performed By: #### U DINA, LIPID, TSH, BNP, CMP, T7 #### [facility] [address] [address] [address] Suzie Brooks PLT 277 103/ul Normal 150-[address] [facility] Comment on above: Performed By: #### U DINA, LIPID, TSH, BNP, CMP, T7 #### [facility] [address] [address] [address] Suzie Brooks RBC 5.38 106/ul Normal 4.70-6.[address] [facility] Comment on above: Performed By: #### U DINA, LIPID, TSH, BNP, CMP, T7 #### [facility] [address] [place] [address] Dr. Suzie Brooks WBC 13.8 103/ul Critically high 4.0-11.0 [facility] [place] [facility] Comment on above: Performed By: #### U DINA, LIPID, TSH, BNP, CMP, T7 #### [facility] [address] [place] [address] ABD/PELVIS WO CONon [...] Reilly CAST Date: 2022-02-16 20:[address] [facility] ER URINE PROFILEon 2 Bilirubin Ql (U) Negative Normal NEGATIVE [facility] [place] [facility] Comment on above: Performed By: #### U DINA, LIPID, TSH, BNP, CMP, T7 #### [facility] [address] [place], [place] [address] Dr. Suzie Brooks Clarity (U) CLEAR Normal CLEAR [facility] Comment on above: Performed By: #### U DINA, LIPID, TSH, BNP, CMP, T7 #### [facility] [address] [place], [place] [address] Dr. Suzie Brooks Color (U) YELLOW Normal YELLOW [facility] Comment on above: Performed By: #### U DINA, LIPID, TSH, BNP, CMP, T7 #### [facility] [address] [address] [address] Suzie ESTEBAN A micrscopic examina tion will be performed if indicated. Normal [facility] Comment on above: Performed By: #### U DINA, LIPID, TSH, BNP, CMP, T7 #### [facility] [address] [address] [address] Suzie Brooks Glucose Ql (U) Negative Normal NEGATIVE The [facility] [place] Comment on above: Performed By: #### U DINA, LIPID, TSH, BNP, CMP, T7 #### [facility] [address] [address] [address] Suzie Brooks Hemoglobin Ql (U) MODERATE Abnormal NEGATIVE The [facility] Comment on above: Performed By: #### U DINA, LIPID, TSH, BNP, CMP, T7 #### [facility] [address] [address] [address] Suzie Brooks Ketones Ql (U) Negative Normal NEGATIVE [facility] [place] Comment on above: Performed By: #### U DINA, LIPID, TSH, BNP, CMP, T7 #### [facility] [address] [address] [address] Suzie Brooks LEUKOCYTES Negative Normal NEGATIVE [facility] Comment on above: Performed By: #### U DNIA, LIPID, TSH, BNP, CMP, T7 #### [facility] [address] [address] [address] Suzie Brooks Nitrite Ql (U) Negative Normal NEGATIVE [facility] [place] Comment on above: Performed By: #### U DINA, LIPID, TSH, BNP, CMP, T7 #### [facility] [address] [address] [address] Suzie Brooks pH (U) 5.5 [pH] Normal 5-[address] [facility] Comment on above: Performed By: #### U DINA, LIPID, TSH, BNP, CMP, T7 #### [facility] [address] [address] [address] Suzie Brooks SPEC GRAVITY >=1.030 Abnormal 1.005-<=1.02 5 [facility] Comment on above: Performed By: #### U DINA, LIPID, TSH, BNP, CMP, T7 #### [facility] [address] [address] [address] Suzie Brooks UA PROTEIN Negative Normal NEGATIVE/ TRACE [facility] Comment on above: Performed By: #### U DINA, LIPID, TSH, BNP, CMP, T7 #### [facility] [address] [address] [address] Suzie Brooks UR MICRO IND INDICATED Normal [facility] Comment on above: Performed By: #### U DINA, LIPID, TSH, BNP, CMP, T7 #### [facility] [address] [address] [address] Suzie Brooks Urobilinogen Qn (U) 0.2 {Behzad'U}/dL Normal 0.2 - 1. 0 [facility] Comment on above: Performed By: #### U DINA, LIPID, TSH, BNP, CMP, T7 #### [facility] [address] [place] [address] Dr. Suzie Brooks PROF CHEM 8 (BAS METB)on Anion gap [Moles/Vol] 12.2 mmol/L Normal [facility] Comment on above: Performed By: #### U DINA, LIPID, TSH, BNP, CMP, T7 #### [facility] [address] [place] [address] Dr. Suzie Brooks Calcium [Mass/Vol] 8.5 mg/dL Normal 8.5-10.1 [facility] Comment on above: Performed By: #### U DINA, LIPID, TSH, BNP, CMP, T7 #### [facility] [address] [address] [address] Suzie Brooks Chloride [Moles/Vol] 104 mmol/L Normal 98-107 [facility] Comment on above: Performed By: #### U DINA, LIPID, TSH, BNP, CMP, T7 #### [facility] [address] [place] [address] Dr. Suzie Brooks CO2 [Moles/Vol] 24.1 mmol/L Normal 21.0-32.0 [facility] Comment on above: Performed By: #### U DINA, LIPID, TSH, BNP, CMP, T7 #### [facility] [address] [address] [address] Suzie Brooks Creatinine [Mass/Vol] 1.14 mg/dL Normal 0.70-1.30 [facility] Comment on above: Performed By: #### U DINA, LIPID, TSH, BNP, CMP, T7 #### [facility] [address] [place] [address] Dr. Suzie Brooks EGFR-AF VINCENTIAN >60 Normal >=60 [facility] Comment on above: Performed By: #### U DINA, LIPID, TSH, BNP, CMP, T7 #### [facility] [address] [place] [address] Dr. Suzie Brooks EGFR-NON AF VINCENTIAN >60 Normal >=60 [facility] Comment on above: Performed By: #### U DINA, LIPID, TSH, BNP, CMP, T7 #### [facility] [address] [place] [address] Dr. Suzie Brooks Glucose [Mass/Vol] 114 mg/dL Critically high 74-106 [facility] Comment on above: Performed By: #### U DINA, LIPID, TSH, BNP, CMP, T7 #### [facility] [address] [place] [address] Dr. Suzie Brooks Potassium [Moles/Vol] 4.3 mmol/L Normal 3.5-5.1 [facility] Comment on above: Performed By: #### U DINA, LIPID, TSH, BNP, CMP, T7 #### [facility] [address] [place] [address] Dr. Suzie Brooks Sodium [Moles/Vol] 136 mmol/L Normal 136-145 [facility] Comment on above: Performed By: #### U DINA, LIPID, TSH, BNP, CMP, T7 #### [facility] [address] [place] [address] Dr. Suzie Brooks Urea nitrogen [Mass/Vol] 14.0 mg/dL Normal 7.0-18.0 [facility] Comment on above: Performed By: #### U DINA, LIPID, TSH, BNP, CMP, T7 #### [facility] [address] [address] [address] Suzie Brooks Urea nitrogen/Creatinine [Mass ratio] 12.3 mg/mg Normal [facility] Comment on above: Performed By: #### U DINA, LIPID, TSH, BNP, CMP, T7 #### [facility] [address] [address] [address] Suzie Brooks URINE MICROSCOPIC ONLYon BACTERIA NONE SEEN Normal NONE SEEN [facility] Comment on above: Performed By: #### U DINA, LIPID, TSH, BNP, CMP, T7 #### [facility] [address] [address] [address] Suzie Brooks Bacteria identified Cx Nom (U) NOT INDICATED Normal [facility] Comment on above: Performed By: #### U DINA, LIPID, TSH, BNP, CMP, T7 #### [facility] [address] [address] [address] Suzie Brooks CAST NONE SEEN Normal NONE SEEN [facility] Comment on above: Performed By: #### U DINA, LIPID, TSH, BNP, CMP, T7 #### [facility] [address] [address] [address] Suzie Brooks Crystals LM Nom (Urine sed) NONE SEEN Normal NONE SEEN [facility] Comment on above: Performed By: #### U DINA, LIPID, TSH, BNP, CMP, T7 #### [facility] [address] [address] [address] Suzie Brooks Epithelial cells LM Ql (Urine sed) RARE Normal NONE SEEN /RARE [facility] Comment on above: Performed By: #### U DINA, LIPID, TSH, BNP, CMP, T7 #### [facility] [address] [address] [address] Suzie Brooks MUCOUS NONE SEEN Normal NONE SEEN [facility] Comment on above: Performed By: #### U DINA, LIPID, TSH, BNP, CMP, T7 #### [facility] [address] [address] [address] Suzie Brooks RBC 5-10 Abnormal 0-[address] [facility] Comment on above: Performed By: #### U DINA, LIPID, TSH, BNP, CMP, T7 #### [facility] [address] [place], [place] [address] Dr. Suzie Brooks WBC NONE SEEN Normal NONE SEEN [facility] Comment on above: Performed By: #### U DINA, LIPID, TSH, BNP, CMP, T7 #### [facility] [address] [address] [address] Suzie Brooks CITRATE URINE 24HRon 022 Citric Acid, U, 24hr 1312 mg/24 hr Critically high 320-124 0 [facility] Comment on above: Result Comment: This test was developed and its performance characteristics determined by [employer]. It has not been cleared or approved by the Food and Drug Administration. Performed By: #### U DINA, LIPID, TSH, BNP, CMP, T7 #### [facility] [address] [address] [address] Suzie Brooks Citric Acid, Urine 610 mg/L Normal Undefined [facility] Comment on above: Performed By: #### U DINA, LIPID, TSH, BNP, CMP, T7 #### [facility] [address] [address] [address] Suzie Brooks OXALATE 24HR URINEon 022 Oxalates, Urine 11 mg/L Normal Undefined [facility] Comment on above: Performed By: #### O [id number] #### [facility] [address] [place] [address] Dr. Suzie Brooks Oxalates, Urine 24hr 24 mg/24 hr Normal 7-44 [facility] Comment on above: Performed By: #### O [id number] #### [facility] [address] [place] [address] Dr. Suzie Brooks MAGNESIUM 24HR URINEon 02-02 Magnesium 24hr Urine 77.4 mg/24 hr Normal 12.0-293.0 [facility] Comment on above: Performed By: #### M AG24 #### [facility] [address] [place] [address] Dr. Suzie Brooks Magnesium UR 3.6 mg/dL Normal Not Estab. [facility] Comment on above: Performed By: #### M AG24 #### [facility] [address] [address] [address] Suzie Brooks PHOSPHORUS 24HR URINEon 01-10 Phosphorus, Urine 44.1 mg/dL Normal Not Estab. The [facility] Comment on above: Performed By: #### U DINA, LIPID, TSH, BNP, CMP, T7 #### [facility] [address] [address] [address] Suzie Brooks Phosphorus, Urine 24hr 948 mg/24 hr Normal 390-1425 [facility] Comment on above: Performed By: #### U DINA, LIPID, TSH, BNP, CMP, T7 #### [facility] [address] [place] [address] Dr. Suzie Brooks URIC ACID 24 HR URINEon 01-10 Uric Acid, Urine 35.4 mg/dL Normal Not Estab. [facility] [place] [facility] Comment on above: Performed By: #### U DINA, LIPID, TSH, BNP, CMP, T7 #### [facility] [address] [place] [address] Dr. Suzie Brooks Uric Acid, Urine 24hr 761.1 mg/24 hr Normal 182.4-936.8 [facility] Comment on above: Performed By: #### U DINA, LIPID, TSH, BNP, CMP, T7 #### [facility] [address] [place] [address] Dr. Suzie Brooks CALCIUM 24 HR URINEon 2021 CALC, 24 HR UR 187.0 mg/24 hr Normal 100.0-300.0 [facility] Comment on above: Performed By: #### U DINA, LIPID, TSH, BNP, CMP, T7 #### [facility] [address] [address] [address] Suzie Brooks UR CALCIUM 8.7 mg/dL Normal 5.1-21.0 [facility] Comment on above: Performed By: #### U DINA, LIPID, TSH, BNP, CMP, T7 #### [facility] [address] [address] [address] Suzie Brooks UR TOT VOL 2150 ml/24 HR Normal [facility] Comment on above: Performed By: #### U DINA, LIPID, TSH, BNP, CMP, T7 #### [facility] [address] [place] [address] Dr. Suzie Brooks CREA 24 HR URINEon 2 CREA, 24 HR UR 1983.59 mg/24 hr Normal 1,000.00- 2,0 00.00 [facility] Comment on above: Performed By: #### U DINA, LIPID, TSH, BNP, CMP, T7 #### [facility] [address] [place] [address] Dr. Suzie Brooks URINE CREAT 92.26 mg/dL Normal 20.00-300.00 [facility] Comment on above: Performed By: #### U DINA, LIPID, TSH, BNP, CMP, T7 #### [facility] [address] [place] [address] Dr. Suzie Brooks SODIUM 24 HR URINEon 2 022 NA, 24 HR UR 172 mmol/24 hr Normal 40-220 [facility] Comment on above: Performed By: #### U DINA, LIPID, TSH, BNP, CMP, T7 #### [facility] [address] [place] [address] Dr. Suzie Brooks Sodium (U) [Moles/Vol] 80 mmol/L Normal 30-90 [facility] Comment on above: Performed By: #### U DINA, LIPID, TSH, BNP, CMP, T7 #### [facility] [address] [place] [address] Dr. Suzie Brooks PTH INTACTon 01-31-2022 PTH, Intact 24 pg/mL Normal 15-[address] [facility] Comment on above: Performed By: #### U DINA, LIPID, TSH, BNP, CMP, T7 #### [facility] [address] [place] [address] Dr. Suzie Brooks BUNon 01-30-2022 Urea nitrogen [Mass/Vol] 12.0 mg/dL Normal 7.0-18.0 [facility] Comment on above: Performed By: #### U DINA, LIPID, TSH, BNP, CMP, T7 #### [facility] [address] [address] [address] Suzie Brooks CALCIUMon 01-30-2022 Calcium [Mass/Vol] 8.6 mg/dL Normal 8.5-10.1 [facility] Comment on above: Performed By: #### U DINA, LIPID, TSH, BNP, CMP, T7 #### [facility] [address] [address] [address] Suzie Brooks CHLORIDEon 01-30-2022 Chloride [Moles/Vol] 104 mmol/L Normal 98-107 [facility] Comment on above: Performed By: #### U DINA, LIPID, TSH, BNP, CMP, T7 #### [facility] [address] [address] [address] Suzie Brooks CO2on 01-30-2022 CO2 [Moles/Vol] 29.3 mmol/L Normal 21.0-32.0 [facility] Comment on above: Performed By: #### U DINA, LIPID, TSH, BNP, CMP, T7 #### [facility] [address] [place] [address] Dr. Suzie Brooks CREATININEon 01-30-2022 Creatinine [Mass/Vol] 0.92 mg/dL Normal 0.70-1.30 [facility] Comment on above: Performed By: #### U DINA, LIPID, TSH, BNP, CMP, T7 #### [facility] [address] [place] [address] Dr. Suzie Brooks EGFR-AF VINCENTIAN >60 Normal >=60 [facility] [place] [facility] Comment on above: Performed By: #### U DINA, LIPID, TSH, BNP, CMP, T7 #### [facility] [address] [place] [address] Dr. Suzie Brooks EGFR-NON AF VINCENTIAN >60 Normal >=60 [facility] Comment on above: Performed By: #### U DINA, LIPID, TSH, BNP, CMP, T7 #### [facility] [address] [address] [address] Suzie Brooks NAon 01-30-2022 Sodium [Moles/Vol] 140 mmol/L Normal 136-145 [facility] Comment on above: Performed By: #### U DINA, LIPID, TSH, BNP, CMP, T7 #### [facility] [address] [place], [place] [address] Dr. Suzie rBooks POTASSIUMon 01-30-2022 Potassium [Moles/Vol] 4.0 mmol/L Normal 3.5-5.[address] [facility] Comment on above: Performed By: #### U DINA, LIPID, TSH, BNP, CMP, T7 #### [facility] [id number] Suzie Brooks URIC ACID SERUMon 01-30-2022 Urate [Mass/Vol] 5.2 mg/dL Normal 3.5-7.2 [facility] [place] [facility] Comment on above: Performed By: #### U DINA, LIPID, TSH, BNP, CMP, T7 #### [facility] [address] [place], [place] [address] Dr. Suzie Brooks US KIDNEYSon 12-18-2021 US [...] BEHZAD CARRASQUILLO Date: 2021-12-18 09:[address] [facility] XR KUB 1 VIEWon 11-21-2021 XR [...] BEHZAD CARRASQUILLO Date: 2021-11-21 09:[address] [facility] COVID-19 Positive/NegativeOr dered By: Micki Zeng on 11-13-2021 SARS-CoV-2 (COVID-19) N gene SUKHJINDER+probe Ql (Resp) Negative Negative [facility] Comment on above: Testing for SARS-CoV -2 by RT-PCRThis test was developed and its performance characteristics determined by [employer] [place] [facility] ([employer]) and validated at the [facility]. This test has not been [...] sooner. CALCULI, URINARYon 2 2,8 Dihydroxyadenine Normal [facility] Comment on above: Performed By: #### U DINA, LIPID, TSH, BNP, CMP, T7 #### [facility] [address] [address] [address] Suzie Brooks Ammonium Acid Urate Normal [facility] Comment on above: Performed By: #### U DINA, LIPID, TSH, BNP, CMP, T7 #### [facility] [address] [address] [address] Suzie Brooks Bilirubin Ql (U) Normal [facility] Comment on above: Performed By: #### U DINA, LIPID, TSH, BNP, CMP, T7 #### [facility] [address] [address] [address] Suzie Brooks Ca Oxalate Dihydrate Normal [facility] Comment on above: Performed By: #### U DINA, LIPID, TSH, BNP, CMP, T7 #### [facility] [address] [address] [address] Suzie Brooks CaHPO4 ([place]) [facility] Comment on above: Performed By: #### U DINA, LIPID, TSH, BNP, CMP, T7 #### [facility] [address] [address] [address] Suzie Brooks Calcium Bilirubinate Normal [facility] Comment on above: Performed By: #### U DINA, LIPID, TSH, BNP, CMP, T7 #### [facility] [address] [address] [address] Suzie Brooks Calcium Carbonate Normal [facility] Comment on above: Performed By: #### U DINA, LIPID, TSH, BNP, CMP, T7 #### [facility] [address] [address] [address] Suzie Brooks Calcium Oxalate Monohydrate 70 % Normal [facility] Comment on above: Performed By: #### U DINA, LIPID, TSH, BNP, CMP, T7 #### [facility] [address] [address] [address] Suzie Brooks Calcium Palmitate Normal [facility] Comment on above: Performed By: #### U DINA, LIPID, TSH, BNP, CMP, T7 #### [facility] [address] [address] [address] Suzie Brooks Calcium Phosphate Normal [facility] Comment on above: Performed By: #### U DINA, LIPID, TSH, BNP, CMP, T7 #### [facility] [address] [address] [address] Suzie Brooks Calcium Stearate Normal [facility] Comment on above: Performed By: #### U DINA, LIPID, TSH, BNP, CMP, T7 #### [facility] [address] [address] [address] Suzie Brooks Carbonate Apatite Normal [facility] Comment on above: Performed By: #### U DINA, LIPID, TSH, BNP, CMP, T7 #### [facility] [address] [address] [address] Suzie Brooks Cellular Material Normal [facility] Comment on above: Performed By: #### U DINA, LIPID, TSH, BNP, CMP, T7 #### [facility] [address] [address] [address] Suzie Brooks Cholesterol [facility] Comment on above: Performed By: #### U DINA, LIPID, TSH, BNP, CMP, T7 #### [facility] [address] [address] [address] Suzie Brooks Color (U) Brown [facility] Comment on above: Performed By: #### U DINA, LIPID, TSH, BNP, CMP, T7 #### [facility] [address] [address] [address] Suzie Brooks Comment [facility] Comment on above: Performed By: #### U DINA, LIPID, TSH, BNP, CMP, T7 #### [facility] [address] [address] [address] Suzie Brooks Comment: Comment Normal [facility] Comment on above: Result Comment: Phys nestor questions regarding Calculi Analysis contact [facility] at: [phone]. Performed By: #### U DINA, LIPID, TSH, BNP, CMP, T7 #### [facility] [address] [address] [address] Suzie Brooks Composition Comment [facility] Comment on above: Result Comment: Perc entage (Represents the % composition) Performed By: #### U DINA, LIPID, TSH, BNP, CMP, T7 #### [facility] [address] [address] [address] Suzie Brooks Cystine [facility] Comment on above: Performed By: #### U DINA, LIPID, TSH, BNP, CMP, T7 #### [facility] [address] [address] [address] Suzie Brooks Disclaimer: Comment Normal [facility] Comment on above: Result Comment: This test was developed and its performance characteristics determined by [facility]. It has not been cleared or approved by the Food and Drug Administration. Performed By: #### U DINA, LIPID, TSH, BNP, CMP, T7 #### [facility] [address] [address] [address] Suzie Brooks Dried Blood Normal [facility] Comment on above: Performed By: #### U DINA, LIPID, TSH, BNP, CMP, T7 #### [facility] [address] [address] [address] Suzie Brooks Drug or Metabolite Normal [facility] Comment on above: Performed By: #### U DINA, LIPID, TSH, BNP, CMP, T7 #### [facility] [address] [address] [address] Suzie Brooks Hydroxyapatite Normal [facility] Comment on above: Performed By: #### U DINA, LIPID, TSH, BNP, CMP, T7 #### [facility] [address] [address] [address] Suzie Brooks Mg NH4 PO4 (Struvite) [facility] Comment on above: Performed By: #### U DINA, LIPID, TSH, BNP, CMP, T7 #### [facility] [address] [address] [address] Suzie Brooks MgHPO4 (Newberyite) Normal [facility] Comment on above: Performed By: #### U DINA, LIPID, TSH, BNP, CMP, T7 #### [facility] [address] [address] [address] Suzie Brooks Other component(s) Normal [facility] Comment on above: Performed By: #### U DINA, LIPID, TSH, BNP, CMP, T7 #### [facility] [address] [address] [address] Suzie Brooks PDF . Normal [facility] Comment on above: Performed By: #### U DINA, LIPID, TSH, BNP, CMP, T7 #### [facility] [address] [address] [address] Suzie Brooks Photo Comment Normal [facility] Comment on above: Result Comment: Luis prasad will follow under a separate cover Performed By: #### U DINA, LIPID, TSH, BNP, CMP, T7 #### [facility] [address] [address] [address] Suzie Brooks Please note: Comment Normal [facility] Comment on above: Result Comment: Calc shamika report will follow via computer, mail or culvert installer delivery. Performed By: #### U DINA, LIPID, TSH, BNP, CMP, T7 #### [facility] [address] [address] [address] Suzie Brooks Size 3x2 Normal [facility] Comment on above: Result Comment: Mult iple pieces received. Dimensions of the largest piece reported. Performed By: #### U DINA, LIPID, TSH, BNP, CMP, T7 #### [facility] [address] [address] [address] Suzie Brooks Sodium Acid Urate Normal [facility] Comment on above: Performed By: #### U DINA, LIPID, TSH, BNP, CMP, T7 #### [facility] [address] [address] [address] Suzie Brooks Source Comment Normal [facility] Comment on above: Result Comment: Jessica haywood Ureter Performed By: #### U DINA, LIPID, TSH, BNP, CMP, T7 #### [facility] [address] [address] [address] Suzie Brooks Triamterene Normal [facility] Comment on above: Performed By: #### U DINA, LIPID, TSH, BNP, CMP, T7 #### [facility] [address] [address] [address] Suzie Brooks Uric Acid 30 % Normal [facility] Comment on above: Performed By: #### U DINA, LIPID, TSH, BNP, CMP, T7 #### [facility] [address] [address] [address] Suzie Brooks Uric Acid Dihydrate Normal [facility] Comment on above: Performed By: #### U DINA, LIPID, TSH, BNP, CMP, T7 #### [facility] [address] [place], [place] [address] Dr. Suzie Brooks Weight 12 mg Normal [facility] Comment on above: Performed By: #### U DINA, LIPID, TSH, BNP, CMP, T7 #### [facility] [address] [place], [place] [address] Dr. Suzie Brooks Xanthine Normal [facility] Comment on above: Performed By: #### U DINA, LIPID, TSH, BNP, CMP, T7 #### [facility] [address] [place], [place] [address] Dr. Suzie Brooks XR KUB 1 VIEWon [...] by: RAFAEL GRAVES Date: 2021-11-12 13:18 Normal [facility] XR CHEST 2 Von 11-08-2021 XR [...] by: CARLOS GROSS Date: 2021-11-08 15:50 Normal [facility] CBC AUTO DIFFon 03-30-2022 BASO # 0.0 103/ul Normal 0.0-0.[address] [facility] Comment on above: Performed By: #### U DINA, LIPID, TSH, BNP, CMP, T7 #### [facility] [address] [place] [address] Dr. Suzie Brooks Basophils/100 WBC (Bld) 0.2 % Normal 0.2-2.[address] [facility] Comment on above: Performed By: #### U DINA, LIPID, TSH, BNP, CMP, T7 #### [facility] [address] [place] [address] Dr. Suzie Brooks EO # 0.0 103/ul Normal 0.0-0.[address] [facility] Comment on above: Performed By: #### U DINA, LIPID, TSH, BNP, CMP, T7 #### [facility] [address] [place] [address] Dr. Suzie Brooks Eosinophils/100 WBC (Bld) 0.0 % Critically low 0.9-7.[address] [facility] Comment on above: Performed By: #### U DINA, LIPID, TSH, BNP, CMP, T7 #### [facility] [address] [place] [address] Dr. Suzie Brooks Erythrocyte distribution width (RBC) [Ratio] 14.0 % Normal 11.0-15.[address] [facility] Comment on above: Performed By: #### U DINA, LIPID, TSH, BNP, CMP, T7 #### [facility] [address] [place] [address] Dr. Suize Brooks Hematocrit (Bld) [Volume fraction] 41.8 % Critically low 42.0-54.[address] [facility] Comment on above: Performed By: #### U DINA, LIPID, TSH, BNP, CMP, T7 #### [facility] [address] [place] [address] Dr. Suzie Brooks Hemoglobin (Bld) [Mass/Vol] 13.7 g/dL Critically low 14.0-18.0 [facility] Comment on above: Performed By: #### U DINA, LIPID, TSH, BNP, CMP, T7 #### [facility] [address] [place] [address] Dr. Suzie Brooks IG # 0.14 10e3/ul Critically high 0.00-0.03 [facility] Comment on above: Performed By: #### U DINA, LIPID, TSH, BNP, CMP, T7 #### [facility] [address] [address] [address] Suzie Brooks IG % 0.9 % Critically high 0.0-0.5 [facility] Comment on above: Performed By: #### U DINA, LIPID, TSH, BNP, CMP, T7 #### [facility] [address] [address] [address] Suzie Brooks LYMPH # 1.6 103/ul Normal 1.2-3.[address] [facility] Comment on above: Performed By: #### U DINA, LIPID, TSH, BNP, CMP, T7 #### [facility] [address] [place] [address] Dr. Suzie Brooks Lymphocytes/100 WBC (Bld) 10.2 % Critically low 20.5-60.0 [facility] Comment on above: Performed By: #### U DINA, LIPID, TSH, BNP, CMP, T7 #### [facility] [address] [address] [address] Suzie Brooks MANUAL DIFF REQ NO Normal [facility] Comment on above: Performed By: #### U DINA, LIPID, TSH, BNP, CMP, T7 #### [facility] [address] [address] [address] Suzie Brooks MCH (RBC) [Entitic mass] 28.8 pg Normal 25.9-34.0 [facility] Comment on above: Performed By: #### U DINA, LIPID, TSH, BNP, CMP, T7 #### [facility] [address] [address] [address] Suzie Brooks MCHC (RBC) [Mass/Vol] 32.8 g/dL Normal 29.9-35.2 [facility] Comment on above: Performed By: #### U DINA, LIPID, TSH, BNP, CMP, T7 #### [facility] [address] [place] [address] Dr. Suzie Brooks MCV (RBC) [Entitic vol] 87.8 fL Normal 80.0-94.[address] [facility] Comment on above: Performed By: #### U DINA, LIPID, TSH, BNP, CMP, T7 #### [facility] [address] [place] [address] Dr. Suzie Brooks MONO # 1.0 103/ul Critically high 0.3-0.8 [facility] Comment on above: Performed By: #### U DINA, LIPID, TSH, BNP, CMP, T7 #### [facility] [address] [place] [address] Dr. Suzie Brooks Monocytes/100 WBC (Bld) 6.6 % Normal 1.7-12.[address] [facility] Comment on above: Performed By: #### U DINA, LIPID, TSH, BNP, CMP, T7 #### [facility] [address] [place] [address] Dr. Suzie Brooks NEUT # 13.0 103/ul Critically high 1.4-6.5 [facility] [place] [facility] Comment on above: Performed By: #### U DINA, LIPID, TSH, BNP, CMP, T7 #### [facility] [address] [place] [address] Dr. Suzie Brooks Neutrophils/100 WBC (Bld) 82.1 % Critically high 43.0-75.[address] [facility] Comment on above: Performed By: #### U DINA, LIPID, TSH, BNP, CMP, T7 #### [facility] [address] [place] [address] Dr. Suzie Brooks Platelet mean volume (Bld) [Entitic vol] 9.3 fL Critically low 9.5-13.[address] [facility] Comment on above: Performed By: #### U DINA, LIPID, TSH, BNP, CMP, T7 #### [facility] [address] [place] [address] Dr. Suzie Brooks PLT 301 103/ul Normal 150-[address] [facility] Comment on above: Performed By: #### U DINA, LIPID, TSH, BNP, CMP, T7 #### [facility] [address] [place] [address] Dr. Suzie Brooks RBC 4.76 106/ul Normal 4.70-6.10 [facility] Comment on above: Performed By: #### U DINA, LIPID, TSH, BNP, CMP, T7 #### [facility] [address] [place] [address] Dr. Suzie Brooks WBC 15.9 103/ul Critically high 4.0-11.0 [facility] Comment on above: Performed By: #### U DINA, LIPID, TSH, BNP, CMP, T7 #### [facility] [address] [place] [address] Dr. Suzie Brooks POINT OF CARE GLUCOSEon 10-11 Glucose [Mass/Vol] 128 mg/dL Critically high 74-106 [facility] Comment on above: Performed By: #### U DINA, LIPID, TSH, BNP, CMP, T7 #### [facility] [address] [place] [address] Dr. Suzie Brooks PROF 14(COMP METB)on 022 Albumin [Mass/Vol] 3.1 g/dL Critically low 3.4-5.0 [facility] Comment on above: Performed By: #### M AG24 #### [facility] [address] [place] [address] Dr. Suzie Brooks Albumin/Globulin [Mass ratio] 0.9 {ratio} Normal [facility] Comment on above: Performed By: #### M AG24 #### [facility] [address] [place] [address] Dr. Suzie Brooks ALP [Catalytic activity/Vol] 52 U/L Normal 46-116 [facility] Comment on above: Performed By: #### M AG24 #### [facility] [address] [place] [address] Dr. Suzie Brooks ALT [Catalytic activity/Vol] 39 U/L Normal 16-63 [facility] Comment on above: Performed By: #### M AG24 #### [facility] [address] [place] [address] Dr. Suzie Brooks Anion gap [Moles/Vol] 14.7 mmol/L Normal [facility] Comment on above: Performed By: #### M AG24 #### [facility] [address] [address] [address] Suzie Brooks AST [Catalytic activity/Vol] 27 U/L Normal 15-37 [facility] Comment on above: Performed By: #### M AG24 #### [facility] [address] [address] [address] Suzie Brooks Bilirubin [Mass/Vol] 0.4 mg/dL Normal 0.2-1.3 [facility] Comment on above: Performed By: #### M AG24 #### [facility] [address] [address] [address] Suzie Boroks Calcium [Mass/Vol] 7.7 mg/dL Critically low 8.5-10.1 [facility] Comment on above: Performed By: #### M AG24 #### [facility] [address] [place] [address] Dr. Suzie Brooks Chloride [Moles/Vol] 104 mmol/L Normal 98-107 [facility] Comment on above: Performed By: #### M AG24 #### [facility] [address] [address] [address] Suzie Brooks CO2 [Moles/Vol] 23.4 mmol/L Normal 22.0-30.0 [facility] Comment on above: Performed By: #### M AG24 #### [facility] [address] [address] [address] Suzie Brooks Creatinine [Mass/Vol] 1.03 mg/dL Normal 0.66-1.25 [facility] Comment on above: Performed By: #### M AG24 #### [facility] [address] [address] [address] Suzie Brooks EGFR-AF VINCENTIAN >60 Normal >=60 [facility] Comment on above: Performed By: #### M AG24 #### [facility] [address] [address] [address] Suzie Brooks EGFR-NON AF VINCENTIAN >60 Normal >=60 [facility] Comment on above: Performed By: #### M AG24 #### [facility] [address] [address] [address] Suzie Brooks Globulin (S) [Mass/Vol] 3.5 g/dL Normal [facility] Comment on above: Performed By: #### M AG24 #### [facility] [address] [place] [address] Dr. Suzie Brooks Glucose [Mass/Vol] 142 mg/dL Critically high 74-106 [facility] Comment on above: Performed By: #### M AG24 #### [facility] [address] [place] [address] Dr. Suzie Brooks Potassium [Moles/Vol] 4.1 mmol/L Normal 3.4-5.0 [facility] Comment on above: Performed By: #### M AG24 #### [facility] [address] [place] [address] Dr. Suzie Brooks Protein [Mass/Vol] 6.6 g/dL Normal 6.1-8.2 [facility] Comment on above: Performed By: #### M AG24 #### [facility] [address] [place] [address] Dr. Suzie Brooks Sodium [Moles/Vol] 138 mmol/L Normal 137-145 [facility] Comment on above: Performed By: #### M AG24 #### [facility] [address] [place] [address] Dr. Suzie Brooks Urea nitrogen [Mass/Vol] 15.0 mg/dL Normal 7.0-18.0 [facility] Comment on above: Performed By: #### M AG24 #### [facility] [address] [place] [address] Dr. Suzie Brooks Urea nitrogen/Creatinine [Mass ratio] 14.6 mg/mg Normal [facility] Comment on above: Performed By: #### M AG24 #### [facility] [address] [place] [address] Dr. Suzie Brooks CBC AUTO DIFFon 11-06-2021 BASO # 0.1 103/ul Normal 0.0-0.1 [facility] Comment on above: Performed By: #### U DINA, LIPID, TSH, BNP, CMP, T7 #### [facility] [address] [place] [address] Dr. Suzie Brooks Basophils/100 WBC (Bld) 0.5 % Normal 0.2-2.0 [facility] Comment on above: Performed By: #### U DINA, LIPID, TSH, BNP, CMP, T7 #### [facility] [address] [place] [address] Dr. Suzie Brooks EO # 0.3 103/ul Normal 0.0-0.[address] [facility] Comment on above: Performed By: #### U DINA, LIPID, TSH, BNP, CMP, T7 #### [facility] [address] [place] [address] Dr. Suzie Brooks Eosinophils/100 WBC (Bld) 2.1 % Normal 0.9-7.0 [facility] Comment on above: Performed By: #### U DINA, LIPID, TSH, BNP, CMP, T7 #### [facility] [address] [place] [address] Dr. Suzie Brooks Erythrocyte distribution width (RBC) [Ratio] 13.8 % Normal 11.0-15.0 [facility] Comment on above: Performed By: #### U DINA, LIPID, TSH, BNP, CMP, T7 #### [facility] [address] [place] [address] Dr. Suzie Boroks Hematocrit (Bld) [Volume fraction] 46.9 % Normal 42.0-54.0 [facility] Comment on above: Performed By: #### U DINA, LIPID, TSH, BNP, CMP, T7 #### [facility] [address] [place] [address] Dr. Suzie Brooks Hemoglobin (Bld) [Mass/Vol] 15.4 g/dL Normal 14.0-18.0 [facility] Comment on above: Performed By: #### U DINA, LIPID, TSH, BNP, CMP, T7 #### [facility] [address] [place] [address] Dr. Suzie Brokos IG # 0.05 10e3/ul Critically high 0.00-0.03 [facility] Comment on above: Performed By: #### U DINA, LIPID, TSH, BNP, CMP, T7 #### [facility] [address] [address] [address] Suzie Brooks IG % 0.4 % Normal 0.0-0.5 [facility] Comment on above: Performed By: #### U DINA, LIPID, TSH, BNP, CMP, T7 #### [facility] [address] [place] [address] Dr. Suzie Brooks LYMPH # 2.8 103/ul Normal 1.2-3.8 [facility] Comment on above: Performed By: #### U DINA, LIPID, TSH, BNP, CMP, T7 #### [facility] [address] [place] [address] Dr. Suzie Brooks Lymphocytes/100 WBC (Bld) 22.5 % Normal 20.5-60.0 [facility] Comment on above: Performed By: #### U DINA, LIPID, TSH, BNP, CMP, T7 #### [facility] [address] [place] [address] Dr. Suzie Brooks MANUAL DIFF REQ NO Normal [facility] Comment on above: Performed By: #### U DINA, LIPID, TSH, BNP, CMP, T7 #### [facility] [address] [place] [address] Dr. Suzie Brooks MCH (RBC) [Entitic mass] 28.6 pg Normal 25.9-34.0 [facility] Comment on above: Performed By: #### U DINA, LIPID, TSH, BNP, CMP, T7 #### [facility] [address] [place] [address] Dr. Suzie Brooks MCHC (RBC) [Mass/Vol] 32.8 g/dL Normal 29.9-35.[address] [facility] Comment on above: Performed By: #### U DINA, LIPID, TSH, BNP, CMP, T7 #### [facility] [address] [place] [address] Dr. Suzie Brooks MCV (RBC) [Entitic vol] 87.0 fL Normal 80.0-94.0 [facility] Comment on above: Performed By: #### U DINA, LIPID, TSH, BNP, CMP, T7 #### [facility] [address] [address] [address] Suzie Brooks MONO # 0.9 103/ul Critically high 0.3-0.8 [facility] Comment on above: Performed By: #### U DINA, LIPID, TSH, BNP, CMP, T7 #### [facility] [address] [address] [address] Suzie Brooks Monocytes/100 WBC (Bld) 6.9 % Normal 1.7-12.[address] [facility] Comment on above: Performed By: #### U DINA, LIPID, TSH, BNP, CMP, T7 #### [facility] [address] [place] [address] Dr. Suzie Brooks NEUT # 8.4 103/ul Critically high 1.4-6.5 [facility] Comment on above: Performed By: #### U DINA, LIPID, TSH, BNP, CMP, T7 #### [facility] [address] [place] [address] Dr. Suzie Brooks Neutrophils/100 WBC (Bld) 67.6 % Normal 43.0-75.[address] [facility] Comment on above: Performed By: #### U DINA, LIPID, TSH, BNP, CMP, T7 #### [facility] [address] [place] [address] Dr. Suzie Brooks Platelet mean volume (Bld) [Entitic vol] 9.6 fL Normal 9.5-13.[address] [facility] Comment on above: Performed By: #### U DINA, LIPID, TSH, BNP, CMP, T7 #### [facility] [address] [place] [address] Dr. Suzie Brooks PLT 284 103/ul Normal 150-[address] [facility] Comment on above: Performed By: #### U DINA, LIPID, TSH, BNP, CMP, T7 #### [facility] [address] [place] [address] Dr. Suzie Brooks RBC 5.39 106/ul Normal 4.70-6.[address] [facility] Comment on above: Performed By: #### U DINA, LIPID, TSH, BNP, CMP, T7 #### [facility] [address] [address] [address] Suzie Brooks WBC 12.5 103/ul Critically high 4.0-11.0 [facility] Comment on above: Performed By: #### U DINA, LIPID, TSH, BNP, CMP, T7 #### [facility] [address] [address] [address] Suzie Brooks CULTURE BLOODon 11-06-2021 Microscopic examination of blood, culture Culture Observations: NO GROWTH AT [address] [facility] Comment on above: Performed By: #### M AG24 #### [facility] [address] [address] [address] Suzie Brooks CULTURE URINEon 11-06-2021 CULTURE URINE Culture Observations : NO GROWTH. Normal [facility] Comment on above: Performed By: #### M AG24 #### [facility] [address] [place] [address] Dr. Suzie Brooks Covid-19 PCR (CVDTB)on 10-10 SARS-CoV-2 (COVID-19) RNA SUKHJINDER+probe Ql (Unsp spec) Not detected Normal NOT DETECTED [facility] Comment on above: Result Comment: When diagnostic testing is negative, the possibility of a false negative should be considered in the context of a patient's recent exposures and the presence of clinical signs and symptoms consistent with SARS-CoV-2. This test is not yet approved or cleared by the [place] Food and Drug Administration (FDA). This test was developed by [employer], [place], [place]. The performance characteristics of this test were validated by [facility]. The results are not intended to be used as the sole means for clinical diagnosis or patient management decisions. [facility] is authorized under Clinical Laboratory Improvement [...] for this test is supported by the [place] of Health and Human Service's declaration that [...] DINA, LIPID, TSH, BNP, CMP, T7 #### [facility] [address] [place] [address] Dr. Suzie Brooks ER URINE PROFILEon 2 Bilirubin Ql (U) Negative Normal NEGATIVE [facility] [place] [facility] Comment on above: Performed By: #### U DINA, LIPID, TSH, BNP, CMP, T7 #### [facility] [address] [place] [address] Dr. Suzie Brooks Clarity (U) CLEAR Normal CLEAR [facility] Comment on above: Performed By: #### U DINA, LIPID, TSH, BNP, CMP, T7 #### [facility] [address] [place] [address] Dr. Suzie Brooks Color (U) YELLOW Normal YELLOW [facility] Comment on above: Performed By: #### U DINA, LIPID, TSH, BNP, CMP, T7 #### [facility] [address] [place] [address] Dr. Suzie ESTEBAN A micrscopic examina tion will be performed if indicated. Normal [facility] Comment on above: Performed By: #### U DINA, LIPID, TSH, BNP, CMP, T7 #### [facility] [address] [place] [address] Dr. Suzie Brooks Glucose Ql (U) Negative Normal NEGATIVE [facility] [place] Comment on above: Performed By: #### U DINA, LIPID, TSH, BNP, CMP, T7 #### [facility] [address] [place] [address] Dr. Suzie Brooks Hemoglobin Ql (U) LARGE Abnormal NEGATIVE [facility] Comment on above: Performed By: #### U DINA, LIPID, TSH, BNP, CMP, T7 #### [facility] [address] [place] [address] Dr. Suzie Brooks Ketones Ql (U) Negative Normal NEGATIVE [facility] [place] Comment on above: Performed By: #### U DINA, LIPID, TSH, BNP, CMP, T7 #### [facility] [address] [place] [address] Dr. Suzie Brooks LEUKOCYTES TRACE Abnormal NEGATIVE [facility] Comment on above: Performed By: #### U DINA, LIPID, TSH, BNP, CMP, T7 #### [facility] [address] [place] [address] Dr. Suzie Brooks Nitrite Ql (U) Negative Normal NEGATIVE [facility] [place] Comment on above: Performed By: #### U DIAN, LIPID, TSH, BNP, CMP, T7 #### [facility] [address] [place] [address] Dr. Suzie Brooks pH (U) 5.0 [pH] Normal 5-9 [facility] Comment on above: Performed By: #### U DINA, LIPID, TSH, BNP, CMP, T7 #### [facility] [address] [place] [address] Dr. Suzie Brooks Protein (U) [Mass/Vol] 100 mg/dL Abnormal NEGATIVE/ TRACE [facility] Comment on above: Performed By: #### U DINA, LIPID, TSH, BNP, CMP, T7 #### [facility] [address] [place] [address] Dr. Suzie Brooks SPEC GRAVITY 1.030 Abnormal 1.005-<=1.02 5 [facility] Comment on above: Performed By: #### U DINA, LIPID, TSH, BNP, CMP, T7 #### [facility] [address] [place] [address] Dr. Suzie Brooks UR MICRO IND INDICATED Normal [facility] Comment on above: Performed By: #### U DINA, LIPID, TSH, BNP, CMP, T7 #### [facility] [address] [place] [address] Dr. Suzie Brooks Urobilinogen Qn (U) 0.2 {Behzad'U}/dL Normal 0.2 - 1. 0 [facility] Comment on above: Performed By: #### U DINA, LIPID, TSH, BNP, CMP, T7 #### [facility] [address] [address] [address] Suzie Brooks LACTATE/LACTIC ACIDon 2021 Lactate [Moles/Vol] 1.0 mmol/L Normal 0.7-2.0 [facility] Comment on above: Performed By: #### U DINA, LIPID, TSH, BNP, CMP, T7 #### [facility] [address] [address] [address] Suzie Brooks PROF 14(COMP METB)on 022 Albumin [Mass/Vol] 3.8 g/dL Normal 3.4-5.0 [facility] Comment on above: Performed By: #### U DINA, LIPID, TSH, BNP, CMP, T7 #### [facility] [address] [place] [address] Dr. Suzie Brooks Albumin/Globulin [Mass ratio] 1.0 {ratio} Normal [facility] Comment on above: Performed By: #### U DINA, LIPID, TSH, BNP, CMP, T7 #### [facility] [address] [place] [address] Dr. Suzie Brooks ALP [Catalytic activity/Vol] 66 U/L Normal 46-116 [facility] Comment on above: Performed By: #### U DINA, LIPID, TSH, BNP, CMP, T7 #### [facility] [address] [place] [address] Dr. Suzie Brooks ALT [Catalytic activity/Vol] 52 U/L Normal 16-63 [facility] Comment on above: Performed By: #### U DINA, LIPID, TSH, BNP, CMP, T7 #### [facility] [address] [address] [address] Suzie Brooks Anion gap [Moles/Vol] 14.7 mmol/L Normal [facility] Comment on above: Performed By: #### U DINA, LIPID, TSH, BNP, CMP, T7 #### [facility] [address] [place] [address] Dr. Suzie Brooks AST [Catalytic activity/Vol] 40 U/L Critically high 15-37 [facility] Comment on above: Performed By: #### U DINA, LIPID, TSH, BNP, CMP, T7 #### [facility] [address] [address] [address] Suzie Brooks Bilirubin [Mass/Vol] 0.6 mg/dL Normal 0.2-1.3 [facility] Comment on above: Performed By: #### U DINA, LIPID, TSH, BNP, CMP, T7 #### [facility] [address] [address] [address] Suzie Brooks Calcium [Mass/Vol] 8.2 mg/dL Critically low 8.5-10.[address] [facility] Comment on above: Performed By: #### U DINA, LIPID, TSH, BNP, CMP, T7 #### [facility] [address] [address] [address] Suzie Brooks Chloride [Moles/Vol] 102 mmol/L Normal 98-[address] [facility] Comment on above: Performed By: #### U DINA, LIPID, TSH, BNP, CMP, T7 #### [facility] [address] [address] [address] Suzie Brooks CO2 [Moles/Vol] 27.4 mmol/L Normal 22.0-30.0 [facility] [place] [facility] Comment on above: Performed By: #### U DINA, LIPID, TSH, BNP, CMP, T7 #### [facility] [address] [address] [address] Suzie Brooks Creatinine [Mass/Vol] 1.05 mg/dL Normal 0.66-1.25 [facility] Comment on above: Performed By: #### U DINA, LIPID, TSH, BNP, CMP, T7 #### [facility] [address] [address] [address] Suzie Brooks EGFR-AF VINCENTIAN >60 Normal >=60 [facility] [place] [facility] Comment on above: Performed By: #### U DINA, LIPID, TSH, BNP, CMP, T7 #### [facility] [address] [address] [address] Suzie Brooks EGFR-NON AF VINCENTIAN >60 Normal >=[address] [facility] Comment on above: Performed By: #### U DINA, LIPID, TSH, BNP, CMP, T7 #### [facility] [address] [place] [address] Dr. Suzie Brooks Globulin (S) [Mass/Vol] 3.7 g/dL Normal [facility] Comment on above: Performed By: #### U DINA, LIPID, TSH, BNP, CMP, T7 #### [facility] [address] [place] [address] Dr. Suzie Brooks Glucose [Mass/Vol] 124 mg/dL Critically high 74-106 [facility] Comment on above: Performed By: #### U DINA, LIPID, TSH, BNP, CMP, T7 #### [facility] [address] [place] [address] Dr. Suzie Brooks Potassium [Moles/Vol] 4.1 mmol/L Normal 3.4-5.0 [facility] Comment on above: Performed By: #### U DINA, LIPID, TSH, BNP, CMP, T7 #### [facility] [address] [place] [address] Dr. Suzie Brooks Protein [Mass/Vol] 7.5 g/dL Normal 6.1-8.2 [facility] Comment on above: Performed By: #### U DINA, LIPID, TSH, BNP, CMP, T7 #### [facility] [address] [place] [address] Dr. Suzie Brooks Sodium [Moles/Vol] 140 mmol/L Normal 137-145 [facility] Comment on above: Performed By: #### U DINA, LIPID, TSH, BNP, CMP, T7 #### [facility] [address] [place] [address] Dr. Suzie Brooks Urea nitrogen [Mass/Vol] 16.0 mg/dL Normal 7.0-18.0 [facility] Comment on above: Performed By: #### U DINA, LIPID, TSH, BNP, CMP, T7 #### [facility] [address] [place] [address] Dr. Suzie Brooks Urea nitrogen/Creatinine [Mass ratio] 15.2 mg/mg Normal [facility] Comment on above: Performed By: #### U DINA, LIPID, TSH, BNP, CMP, T7 #### [facility] [address] [address] [address] Suzie Brooks URINE MICROSCOPIC ONLYon BACTERIA SMALL Abnormal NONE SEEN [facility] Comment on above: Performed By: #### U DINA, LIPID, TSH, BNP, CMP, T7 #### [facility] [address] [address] [address] Suzie Brooks Bacteria identified Cx Nom (U) INDICATED Normal [facility] Comment on above: Performed By: #### U DINA, LIPID, TSH, BNP, CMP, T7 #### [facility] [address] [address] [address] Suzie Brooks CAST NONE SEEN Normal NONE SEEN [facility] Comment on above: Performed By: #### U DINA, LIPID, TSH, BNP, CMP, T7 #### [facility] [address] [address] [address] Suzie Brooks Crystals LM Nom (Urine sed) NONE SEEN Normal NONE SEEN [facility] Comment on above: Performed By: #### U DINA, LIPID, TSH, BNP, CMP, T7 #### [facility] [address] [address] [address] Suzie Brooks Epithelial cells LM Ql (Urine sed) RARE Normal NONE SEEN /RARE [facility] Comment on above: Performed By: #### U DINA, LIPID, TSH, BNP, CMP, T7 #### [facility] [address] [address] [address] Suzie Brooks MUCOUS NONE SEEN Normal NONE SEEN [facility] Comment on above: Performed By: #### U DINA, LIPID, TSH, BNP, CMP, T7 #### [facility] [address] [address] [address] Suzie Brooks RBC 50-75 Abnormal 0-[address] [facility] Comment on above: Performed By: #### U DINA, LIPID, TSH, BNP, CMP, T7 #### [facility] [address] [address] [address] Suzie Brooks WBC 20-50 Abnormal NONE SEEN [facility] Comment on above: Performed By: #### U DINA, LIPID, TSH, BNP, CMP, T7 #### [facility] [address] [place], [place] [address] Dr. Suzie Brooks XR KUB 1 VIEWon [...] BEHZAD SANTOS Date: 2021-11-06 21:[address] [facility] XR KUB 1 VIEW EXAMINATION: XR [...] RAFAEL GRAVES Date: 2021-11-06 08:[address] [facility] CBC AUTO DIFFon 11-05-2021 BASO # 0.1 103/ul Normal 0.0-0.1 [facility] Comment on above: Performed By: #### U DINA, LIPID, TSH, BNP, CMP, T7 #### [facility] [address] [place], [place] [address] Dr. Suzie Brooks Basophils/100 WBC (Bld) 0.6 % Normal 0.2-2.0 [facility] Comment on above: Performed By: #### U DINA, LIPID, TSH, BNP, CMP, T7 #### [facility] [address] [place], [place] [address] Dr. Suzie Brooks EO # 0.3 103/ul Normal 0.0-0.7 [facility] Comment on above: Performed By: #### U DINA, LIPID, TSH, BNP, CMP, T7 #### [facility] [address] [place] [address] Dr. Suzie Brooks Eosinophils/100 WBC (Bld) 2.2 % Normal 0.9-7.0 [facility] Comment on above: Performed By: #### U DINA, LIPID, TSH, BNP, CMP, T7 #### [facility] [address] [address] [address] Suzie Brooks Erythrocyte distribution width (RBC) [Ratio] 13.7 % Normal 11.0-15.0 [facility] Comment on above: Performed By: #### U DINA, LIPID, TSH, BNP, CMP, T7 #### [facility] [address] [place] [address] Dr. Suzie Brooks Hematocrit (Bld) [Volume fraction] 49.0 % Normal 42.0-54.0 [facility] Comment on above: Performed By: #### U DINA, LIPID, TSH, BNP, CMP, T7 #### [facility] [address] [place] [address] Dr. Suzie Brooks Hemoglobin (Bld) [Mass/Vol] 15.9 g/dL Normal 14.0-18.0 [facility] Comment on above: Performed By: #### U DINA, LIPID, TSH, BNP, CMP, T7 #### [facility] [address] [place] [address] Dr. Suzie Brooks IG # 0.07 10e3/ul Critically high 0.00-0.03 [facility] Comment on above: Performed By: #### U DINA, LIPID, TSH, BNP, CMP, T7 #### [facility] [address] [place] [address] Dr. Suzie Brooks IG % 0.5 % Normal 0.0-0.5 [facility] Comment on above: Performed By: #### U DINA, LIPID, TSH, BNP, CMP, T7 #### [facility] [address] [place] [address] Dr. Suzie Brooks LYMPH # 3.1 103/ul Normal 1.2-3.[address] [facility] Comment on above: Performed By: #### U DINA, LIPID, TSH, BNP, CMP, T7 #### [facility] [address] [place] [address] Dr. Suzie Brooks Lymphocytes/100 WBC (Bld) 23.8 % Normal 20.5-60.[address] [facility] Comment on above: Performed By: #### U DINA, LIPID, TSH, BNP, CMP, T7 #### [facility] [address] [place] [address] Dr. Suzie Brooks MANUAL DIFF REQ NO Normal [facility] Comment on above: Performed By: #### U DINA, LIPID, TSH, BNP, CMP, T7 #### [facility] [address] [place] [address] Dr. Suzie Brooks MCH (RBC) [Entitic mass] 28.8 pg Normal 25.9-34.[address] [facility] Comment on above: Performed By: #### U DINA, LIPID, TSH, BNP, CMP, T7 #### [facility] [address] [place] [address] Dr. Suzie Brooks MCHC (RBC) [Mass/Vol] 32.4 g/dL Normal 29.9-35.[address] [facility] Comment on above: Performed By: #### U DINA, LIPID, TSH, BNP, CMP, T7 #### [facility] [address] [place] [address] Dr. Suzie Brooks MCV (RBC) [Entitic vol] 88.8 fL Normal 80.0-94.[address] [facility] Comment on above: Performed By: #### U DINA, LIPID, TSH, BNP, CMP, T7 #### [facility] [address] [place] [address] Dr. Suzie Brooks MONO # 0.9 103/ul Critically high 0.3-0.8 [facility] Comment on above: Performed By: #### U DINA, LIPID, TSH, BNP, CMP, T7 #### [facility] [address] [place] [address] Dr. Suzie Brooks Monocytes/100 WBC (Bld) 6.8 % Normal 1.7-12.[address] [facility] Comment on above: Performed By: #### U DINA, LIPID, TSH, BNP, CMP, T7 #### [facility] [address] [address] [address] Suzie Brooks NEUT # 8.7 103/ul Critically high 1.4-6.5 [facility] Comment on above: Performed By: #### U DINA, LIPID, TSH, BNP, CMP, T7 #### [facility] [address] [address] [address] Suzie Brooks Neutrophils/100 WBC (Bld) 66.1 % Normal 43.0-75.[address] [facility] Comment on above: Performed By: #### U DINA, LIPID, TSH, BNP, CMP, T7 #### [facility] [address] [address] [address] Suzie Brooks Platelet mean volume (Bld) [Entitic vol] 9.4 fL Critically low 9.5-13.5 [facility] Comment on above: Performed By: #### U DINA, LIPID, TSH, BNP, CMP, T7 #### [facility] [address] [address] [address] Suzie Brooks PLT 278 103/ul Normal 150-[address] [facility] Comment on above: Performed By: #### U DINA, LIPID, TSH, BNP, CMP, T7 #### [facility] [id number] [address] Suzie Brooks RBC 5.52 106/ul Normal 4.70-6.[address] [facility] Comment on above: Performed By: #### U DINA, LIPID, TSH, BNP, CMP, T7 #### [facility] [address] [address] [address] Suzie Brooks WBC 13.1 103/ul Critically high 4.0-11.0 [facility] [place] [facility] Comment on above: Performed By: #### U DINA, LIPID, TSH, BNP, CMP, T7 #### [facility] [address] [address] [address] ABD/PELVIS WO CONon [...] RAFAEL GRAVES Date: 2021-11-05 11:[address] [facility] CULTURE URINEon 11-05-2021 CULTURE URINE Culture Observations : No growth Normal [facility] Comment on above: Performed By: #### M AG24 #### [facility] [address] [address] [address] Suzie Brooks ER URINE PROFILEon 2 Bilirubin Ql (U) Negative Normal NEGATIVE [facility] [place] [facility] Comment on above: Performed By: #### C VDTBH #### [facility] [address] [place], [place] [address] Dr. Suzie Brooks Clarity (U) CLEAR Normal CLEAR [facility] Comment on above: Performed By: #### C VDTBH #### [facility] [address] [place] [address] Dr. Suzie Brooks Color (U) DK. YELLOW Normal YELLOW [facility] Comment on above: Performed By: #### C VDTBH #### [facility] [address] [place] [address] Dr. Suzie Brooks ERUAHDaniele A micrscopic examina tion will be performed if indicated. Normal [facility] Comment on above: Performed By: #### C VDTBH #### [facility] [address] [place] [address] Dr. Suzie Brooks Glucose Ql (U) Negative Normal NEGATIVE [facility] Comment on above: Performed By: #### C VDTBH #### [facility] [address] [place] [address] Dr. Suzie Brooks Hemoglobin Ql (U) LARGE Abnormal NEGATIVE [facility] Comment on above: Performed By: #### C VDTBH #### [facility] [address] [place] [address] Dr. Suzie Brooks Ketones Ql (U) Negative Normal NEGATIVE [facility] Comment on above: Performed By: #### C VDTBH #### [facility] [address] [place] [address] Dr. Suzie Brooks LEUKOCYTES Negative Normal NEGATIVE [facility] Comment on above: Performed By: #### C VDTBH #### [facility] [address] [place] [address] Dr. Suzie Brooks Nitrite Ql (U) Negative Normal NEGATIVE [facility] Comment on above: Performed By: #### C VDTBH #### [facility] [address] [place] [address] Dr. Suzie Brooks pH (U) 5.0 [pH] Normal 5-9 [facility] Comment on above: Performed By: #### C VDTBH #### [facility] [address] [place] [address] Dr. Suzie Brooks Protein (U) [Mass/Vol] 100 mg/dL Abnormal NEGATIVE/ TRACE [facility] Comment on above: Performed By: #### C VDTBH #### [facility] [address] [place] [address] Dr. Suzie Brooks SPEC GRAVITY >=1.030 Abnormal 1.005-<=1.02 5 [facility] Comment on above: Performed By: #### C VDTBH #### [facility] [address] [place] [address] Dr. Suzie Brooks UR MICRO IND INDICATED Normal [facility] Comment on above: Performed By: #### C VDTBH #### [facility] [address] [place] [address] Dr. Suzie Brooks Urobilinogen Qn (U) 0.2 {Behzad'U}/dL Normal 0.2 - 1. 0 [facility] Comment on above: Performed By: #### C VDTBH #### [facility] [address] [place] [address] Dr. Suzie Brooks PROF 14(COMP METB)on 022 Albumin [Mass/Vol] 3.9 g/dL Normal 3.4-5.0 [facility] Comment on above: Performed By: #### U DINA, LIPID, TSH, BNP, CMP, T7 #### [facility] [address] [place] [address] Dr. Suzie Brooks Albumin/Globulin [Mass ratio] 1.1 {ratio} Normal [facility] Comment on above: Performed By: #### U DINA, LIPID, TSH, BNP, CMP, T7 #### [facility] [address] [place] [address] Dr. Suzie Brooks ALP [Catalytic activity/Vol] 64 U/L Normal 46-[address] [facility] Comment on above: Performed By: #### U DINA, LIPID, TSH, BNP, CMP, T7 #### [facility] [address] [place] [address] Dr. Suzie Brooks ALT [Catalytic activity/Vol] 57 U/L Normal 16-63 [facility] Comment on above: Performed By: #### U DINA, LIPID, TSH, BNP, CMP, T7 #### [facility] [address] [place], [place] [id number] Dr. Suzie Brooks Anion gap [Moles/Vol] 14.4 mmol/L Normal [facility] Comment on above: Performed By: #### U DINA, LIPID, TSH, BNP, CMP, T7 #### [facility] [address] [place] [address] Dr. Suzie Brooks AST [Catalytic activity/Vol] 51 U/L Critically high 15-[address] [facility] Comment on above: Performed By: #### U DINA, LIPID, TSH, BNP, CMP, T7 #### [facility] [address] [place] [address] Dr. Suzie Brooks Bilirubin [Mass/Vol] 0.8 mg/dL Normal 0.2-1.[address] [facility] Comment on above: Performed By: #### U DINA, LIPID, TSH, BNP, CMP, T7 #### [facility] [address] [place] [address] Dr. Suzie Brooks Calcium [Mass/Vol] 8.5 mg/dL Normal 8.5-10.1 [facility] Comment on above: Performed By: #### U DINA, LIPID, TSH, BNP, CMP, T7 #### [facility] [address] [place] [address] Dr. Suzie Brooks Chloride [Moles/Vol] 103 mmol/L Normal 98-[address] [facility] Comment on above: Performed By: #### U DINA, LIPID, TSH, BNP, CMP, T7 #### [facility] [address] [place] [address] Dr. Suzie Brooks CO2 [Moles/Vol] 26.8 mmol/L Normal 22.0-30.0 [facility] [place] [facility] Comment on above: Performed By: #### U DINA, LIPID, TSH, BNP, CMP, T7 #### [facility] [address] [place] [address] Dr. Suzie Brooks Creatinine [Mass/Vol] 0.98 mg/dL Normal 0.66-1.25 [facility] Comment on above: Performed By: #### U DINA, LIPID, TSH, BNP, CMP, T7 #### [facility] [address] [place] [address] Dr. Suzie Brooks EGFR-AF VINCENTIAN >60 Normal >=60 [facility] Comment on above: Performed By: #### U DINA, LIPID, TSH, BNP, CMP, T7 #### [facility] [address] [address] [address] Suzie Brooks EGFR-NON AF VINCENTIAN >60 Normal >=60 [facility] Comment on above: Performed By: #### U DINA, LIPID, TSH, BNP, CMP, T7 #### [facility] [address] [address] [address] Suzie Brooks Globulin (S) [Mass/Vol] 3.7 g/dL Normal [facility] Comment on above: Performed By: #### U DINA, LIPID, TSH, BNP, CMP, T7 #### [facility] [address] [address] [address] Suzie Brooks Glucose [Mass/Vol] 118 mg/dL Critically high 74-106 [facility] Comment on above: Performed By: #### U DINA, LIPID, TSH, BNP, CMP, T7 #### [facility] [address] [address] [address] Suzie Brooks Potassium [Moles/Vol] 4.2 mmol/L Normal 3.4-5.0 [facility] Comment on above: Performed By: #### U DINA, LIPID, TSH, BNP, CMP, T7 #### [facility] [address] [address] [address] Suzie Brooks Protein [Mass/Vol] 7.6 g/dL Normal 6.1-8.2 [facility] Comment on above: Performed By: #### U DINA, LIPID, TSH, BNP, CMP, T7 #### [facility] [address] [address] [address] Suzie Brooks Sodium [Moles/Vol] 140 mmol/L Normal 137-145 [facility] Comment on above: Performed By: #### U DINA, LIPID, TSH, BNP, CMP, T7 #### [facility] [address] [address] [address] Suzie Brooks Urea nitrogen [Mass/Vol] 14.0 mg/dL Normal 7.0-18.0 [facility] Comment on above: Performed By: #### U DINA, LIPID, TSH, BNP, CMP, T7 #### [facility] [address] [place] [address] Dr. Suzie Brooks Urea nitrogen/Creatinine [Mass ratio] 14.3 mg/mg Normal [facility] Comment on above: Performed By: #### U DINA, LIPID, TSH, BNP, CMP, T7 #### [facility] [address] [place] [address] Dr. Suzie Brooks URINE MICROSCOPIC ONLYon BACTERIA MODERATE Abnormal NONE SEEN [facility] Comment on above: Performed By: #### C VDTBH #### [facility] [address] [place] [address] Dr. Suzie Brooks Bacteria identified Cx Nom (U) INDICATED Normal [facility] Comment on above: Performed By: #### C VDTBH #### [facility] [address] [place] [address] Dr. Suzie Brooks CAST SEEN Abnormal NONE SEEN [facility] Comment on above: Performed By: #### C VDTBH #### [facility] [address] [place] [address] Dr. Suzie Brooks Crystals LM Nom (Urine sed) NONE SEEN Normal NONE SEEN [facility] Comment on above: Performed By: #### C VDTBH #### [facility] [address] [place] [address] Dr. Suzie Brooks Epithelial cells LM Ql (Urine sed) RARE Normal NONE SEEN /RARE [facility] Comment on above: Performed By: #### C VDTBH #### [facility] [address] [place] [address] Dr. Suzie Brooks HYALINE CAST RARE Normal [facility] Comment on above: Performed By: #### C VDTBH #### [facility] [address] [place] [address] Dr. Suzie Brooks MUCOUS NONE SEEN Normal NONE SEEN [facility] Comment on above: Performed By: #### C VDTBH #### [facility] [address] [place] [address] Dr. Suzie Brooks RBC (U) [#/Vol] /uL Abnormal 0-2 [facility] Comment on above: Performed By: #### C VDTBH #### [facility] [address] [place] [address] Dr. Suzie Brooks WBC NONE SEEN Normal NONE SEEN [facility] Comment on above: Performed By: #### C VDTBH #### [facility] [address] [place] [address] Dr. Suzie Brooks XR KUB 1 VIEWon [...] BEHZAD CARRASQUILLO Date: 2021-11-01 12:[address] [facility] CBC AUTO DIFFon 10-26-2021 BASO # 0.1 103/ul Normal 0.0-0.1 [facility] Comment on above: Performed By: #### U DINA, LIPID, TSH, BNP, CMP, T7 #### [facility] [address] [place] [address] Dr. Suzie Brooks Basophils/100 WBC (Bld) 0.7 % Normal 0.2-2.[address] [facility] Comment on above: Performed By: #### U DINA, LIPID, TSH, BNP, CMP, T7 #### [facility] [address] [place] [address] Dr. Suzie Brooks EO # 0.2 103/ul Normal 0.0-0.[address] [facility] Comment on above: Performed By: #### U DINA, LIPID, TSH, BNP, CMP, T7 #### [facility] [address] [place] [address] Dr. Suzie Brooks Eosinophils/100 WBC (Bld) 1.5 % Normal 0.9-7.0 [facility] Comment on above: Performed By: #### U DINA, LIPID, TSH, BNP, CMP, T7 #### [facility] [address] [place] [address] Dr. Suzie Brooks Erythrocyte distribution width (RBC) [Ratio] 13.9 % Normal 11.0-15.[address] [facility] Comment on above: Performed By: #### U DINA, LIPID, TSH, BNP, CMP, T7 #### [facility] [address] [place] [address] Dr. Suzie Brooks Hematocrit (Bld) [Volume fraction] 47.5 % Normal 42.0-54.0 [facility] Comment on above: Performed By: #### U DINA, LIPID, TSH, BNP, CMP, T7 #### [facility] [address] [place] [address] Dr. Suzie Brooks Hemoglobin (Bld) [Mass/Vol] 15.5 g/dL Normal 14.0-18.0 [facility] Comment on above: Performed By: #### U DINA, LIPID, TSH, BNP, CMP, T7 #### [facility] [address] [place] [address] Dr. Suzie Brooks IG # 0.06 10e3/ul Critically high 0.00-0.03 [facility] Comment on above: Performed By: #### U DINA, LIPID, TSH, BNP, CMP, T7 #### [facility] [address] [place] [address] Dr. Suzie Brooks IG % 0.5 % Normal 0.0-0.[address] [facility] Comment on above: Performed By: #### U DINA, LIPID, TSH, BNP, CMP, T7 #### [facility] [address] [place] [address] Dr. Suzie Brooks LYMPH # 2.6 103/ul Normal 1.2-3.8 [facility] Comment on above: Performed By: #### U DINA, LIPID, TSH, BNP, CMP, T7 #### [facility] [address] [place] [address] Dr. Suzie Brooks Lymphocytes/100 WBC (Bld) 23.1 % Normal 20.5-60.[address] [facility] Comment on above: Performed By: #### U DINA, LIPID, TSH, BNP, CMP, T7 #### [facility] [address] [address] [address] Suzie Brooks MANUAL DIFF REQ NO Normal [facility] Comment on above: Performed By: #### U DINA, LIPID, TSH, BNP, CMP, T7 #### [facility] [address] [place] [address] Dr. Suzie Brooks MCH (RBC) [Entitic mass] 28.9 pg Normal 25.9-34.[address] [facility] Comment on above: Performed By: #### U DINA, LIPID, TSH, BNP, CMP, T7 #### [facility] [address] [place] [address] Dr. Suzie Brooks MCHC (RBC) [Mass/Vol] 32.6 g/dL Normal 29.9-35.[address] [facility] Comment on above: Performed By: #### U DINA, LIPID, TSH, BNP, CMP, T7 #### [facility] [address] [place] [address] Dr. Suzie Brooks MCV (RBC) [Entitic vol] 88.5 fL Normal 80.0-94.[address] [facility] Comment on above: Performed By: #### U DINA, LIPID, TSH, BNP, CMP, T7 #### [facility] [address] [place] [address] Dr. Suzie Brooks MONO # 0.9 103/ul Critically high 0.3-0.8 [facility] Comment on above: Performed By: #### U DINA, LIPID, TSH, BNP, CMP, T7 #### [facility] [address] [place] [address] Dr. Suzie Brooks Monocytes/100 WBC (Bld) 7.9 % Normal 1.7-12.[address] [facility] Comment on above: Performed By: #### U DINA, LIPID, TSH, BNP, CMP, T7 #### [facility] [address] [place], [place] [id number] Dr. Suzie Brooks NEUT # 7.4 103/ul Critically high 1.4-6.5 [facility] Comment on above: Performed By: #### U DINA, LIPID, TSH, BNP, CMP, T7 #### [facility] [address] [place] [address] Dr. Suzie Brooks Neutrophils/100 WBC (Bld) 66.3 % Normal 43.0-75.[address] [facility] Comment on above: Performed By: #### U DINA, LIPID, TSH, BNP, CMP, T7 #### [facility] [address] [place] [address] Dr. Suzie Brooks Platelet mean volume (Bld) [Entitic vol] 9.6 fL Normal 9.5-13.[address] [facility] Comment on above: Performed By: #### U DINA, LIPID, TSH, BNP, CMP, T7 #### [facility] [address] [place] [address] Dr. Suzie Brooks PLT 252 103/ul Normal 150-[address] [facility] Comment on above: Performed By: #### U DINA, LIPID, TSH, BNP, CMP, T7 #### [facility] [address] [place] [address] Dr. Suzie Brooks RBC 5.37 106/ul Normal 4.70-6.[address] [facility] Comment on above: Performed By: #### U DINA, LIPID, TSH, BNP, CMP, T7 #### [facility] [address] [place] [address] Dr. Suzie Brooks WBC 11.2 103/ul Critically high 4.0-11.0 [facility] Comment on above: Performed By: #### U DINA, LIPID, TSH, BNP, CMP, T7 #### [facility] [address] [place] [address] Dr. Suzie Brooks Covid-19 PCR (CVDTB)on 10-09 SARS-CoV-2 (COVID-19) RNA SUKHJINDER+probe Ql (Unsp spec) Not detected Normal NOT DETECTED [facility] Comment on above: Result Comment: This test is not yet approved or cleared by the [place] FDA. When there are no FDA-approved or cleared tests available, and other criteria are met, FDA can make tests available under an emergency access mechanism called an Emergency Use Authorization (EUA). The EUA for this test is supported by the [place] of Health and Human Service's (HHS's) declaration [...] DINA, LIPID, TSH, BNP, CMP, T7 #### [facility] [address] [place] [address] Dr. Suzie Brooks PROF CHEM 8 (BAS METB)on Anion gap [Moles/Vol] 7.7 mmol/L Normal [facility] Comment on above: Performed By: #### C VDTBH #### [facility] [address] [place] [address] Dr. Suzie Brooks Calcium [Mass/Vol] 8.6 mg/dL Normal 8.5-10.1 [facility] Comment on above: Performed By: #### C VDTBH #### [facility] [address] [place] [address] Dr. Suzie Brooks Chloride [Moles/Vol] 104 mmol/L Normal 98-[address] [facility] Comment on above: Performed By: #### C VDTBH #### [facility] [address] [place] [address] Dr. Suzie Brooks CO2 [Moles/Vol] 31.8 mmol/L Critically high 22.0-30.0 [facility] Comment on above: Performed By: #### C VDTBH #### [facility] [address] [place] [address] Dr. Suzie Brooks Creatinine [Mass/Vol] 0.99 mg/dL Normal 0.66-1.25 [facility] Comment on above: Performed By: #### C VDTBH #### [facility] [address] [place] [address] Dr. Suzie Brooks EGFR-AF VINCENTIAN >60 Normal >=60 [facility] Comment on above: Performed By: #### C VDTBH #### [facility] [address] [place] [address] Dr. Suzie Brooks EGFR-NON AF VINCENTIAN >60 Normal >=60 [facility] Comment on above: Performed By: #### C VDTBH #### [facility] [address] [place] [address] Dr. Suzie Brooks Glucose [Mass/Vol] 94 mg/dL Normal 74-106 [facility] Comment on above: Performed By: #### C VDTBH #### [facility] [address] [place] [address] Dr. Suzie Brooks Potassium [Moles/Vol] 4.5 mmol/L Normal 3.4-5.0 [facility] Comment on above: Performed By: #### C VDTBH #### [facility] [address] [place] [address] Dr. Suzie Brooks Sodium [Moles/Vol] 139 mmol/L Normal 137-145 [facility] Comment on above: Performed By: #### C VDTBH #### [facility] [address] [place] [address] Dr. Suzie Brooks Urea nitrogen [Mass/Vol] 12.0 mg/dL Normal 7.0-18.0 [facility] Comment on above: Performed By: #### C VDTBH #### [facility] [address] [place] [address] Dr. Suzie Brooks Urea nitrogen/Creatinine [Mass ratio] 12.1 mg/mg Normal [facility] Comment on above: Performed By: #### C VDTBH #### [facility] [address] [place] [address] Dr. Suzie Brooks PROTIMEon 10-26-2021 INR Coag (PPP) [Relative time] 0.99 {INR} Normal [facility] Comment on above: Performed By: #### C VDTBH #### [facility] [address] [place] [address] Dr. Suzie Brooks INR GUIDELINES SEE BELOW Normal [facility] Comment on above: Result Comment: TOMMY RED INR: 2.0 - 3.0 CONDITIONS NOT LISTED BELOW 2.5 - 3.5 FOR PROSTHETIC HEART VALVE REPLACEMENT 2.5 - 3.5 RECURRENT THROMBOSIS Performed By: #### C VDTBH #### [facility] [address] [place] [address] Dr. Suzie Brooks PT Coag (PPP) [Time] 10.7 s Normal 9.0-11.6 [facility] Comment on above: Performed By: #### C VDTBH #### [facility] [address] [place] [address] Dr. Suzie Brooks PTTon 10-26-2021 aPTT Coag (Bld) [Time] 26.4 s Normal 22.3-36.2 [facility] Comment on above: Performed By: #### C VDTBH #### [facility] [address] [place] [address] Dr. Suzie Brooks XR KUB 1 VIEWon [...] by: RAFAEL GRAVES Date: 2021-10-17 13:26 Normal [facility] Vital Signs Date Time Vital Sign Value Performing Clinician Dario mcdonough 04-16-2024 11:38-0400 Blood Pressure Location Micki ZENG [facility] 04-16-2024 11:38-0400 Diastolic blood pressure 75 mm[Hg] Micki ZENG [facility] 04-16-2024 11:38-0400 Heart rate 96 /min Micki ZENG [facility] 04-16-2024 11:38-0400 Respiratory rate 18 /min Micki ZENG [facility] 04-16-2024 11:38-0400 Systolic blood pressure 131 mm[Hg] Micki ZENG [facility] 04-01-2024 15:04-0400 Body height 182.9 cm Christopher Brennon DO Work Phone: [facility] 04-01-2024 15:04-0400 Body mass index (BMI) [Ratio] 39.33 kg/m2 Christopher Brennon DO Work Phone: [facility] 04-01-2024 15:04-0400 Body weight 131.54 kg Christopher Brennon DO Work Phone: [facility] 04-01-2024 15:04-0400 Diastolic blood pressure 92 mm[Hg] Christopher Brennon DO Work Phone: [facility] 04-01-2024 15:04-0400 Systolic blood pressure 140 mm[Hg] Christopher Brennon DO Work Phone: [facility] 04-11-2023 11:55-0400 Blood Pressure Location Micki ZENG [facility] 04-11-2023 11:55-0400 Diastolic blood pressure 76 mm[Hg] Micki ZENG [facility] 04-11-2023 11:55-0400 Heart rate 80 /min Micki ZENG [facility] 04-11-2023 11:55-0400 Respiratory rate 16 /min Micki ZENG [facility] 04-11-2023 11:55-0400 Systolic blood pressure 134 mm[Hg] Micki ZENG [facility] 02-25-2022 14:20-0400 Blood Pressure Location Micki ZENG [facility] 02-25-2022 14:20-0400 Diastolic blood pressure 100 mm[Hg] Micki ZENG [facility] 02-25-2022 14:20-0400 Heart rate 86 /min Micki ZEGN [facility] 02-25-2022 14:20-0400 Respiratory rate 16 /min Micki ZENG [facility] 02-25-2022 14:20-0400 Systolic blood pressure 155 mm[Hg] Micki ZENG [facility] Encounters Encounter Date Encounter Type Care Provider Facility Start: 04-14-2026 ambulatory Micki Muhammadi ty:[facility] Start: 04-15-2025 End: 04-15-2025 ambulatory Micki ZENG Facility:[facility] Start: 04-15-2025 End: 04-15-2025 Patient encounter procedure Micki ZENG [facility] Start: 11-09-2024 End: 11-09-2024 Refill Zenaida Marinelli [employer] Work Phone: [facility] Comment on above: Essential tremor Start: 08-03-2024 End: 08-03-2024 ambulatory Marielle Lerma Facility:[facility] Start: 04-16-2024 End: 04-16-2024 Patient encounter procedure Micki ZENG [facility] Start: 04-01-2024 End: 04-01-2024 Office outpatient visit 15 minutes Christopher Brennon DO Work Phone: [facility] [address] Comment on above: Essential tremor (Pr imary Dx); Essential hypertension (CMS/HCC) Start: 04-01-2024 End: 04-01-2024 ambulatory TRACEY WILLETT Not Available Start: 04-01-2024 End: 04-01-2024 Bamboo flowsheet Christopher Brennon DO Work Phone: [facility] [address] Start: 04-01-2024 End: 04-01-2024 Bamboo flowsheet Christopher Brennon DO Work Phone: [facility] [address] Start: 04-11-2023 End: 04-11-2023 Patient encounter procedure [facility]ENG [facility] Start: 08-14-[address] MARIELLE LERMA Facility :[facility] Start: 08-13-[address] MARIELLE LERMA Facility :[facility] Start: 07-26-2022 End: 07-27-[address] MARIELLE LERMA Facility:[facility] Start: 07-18-2022 End: 07-19-[address] MICKI ZENG Facility:[facility] Start: 05-15-2022 End: 05-16-[address] MARIELLE LERMA Facility:[facility] Start: 02-25-2022 End: 02-25-2022 Patient encounter procedure Micki ZENG [facility] Start: 02-18-2022 End: 02-18-2022 ambulatory [...] encounter procedure MD Marielle Lerma Work Phone: [facility] Start: 11-12-2021 End: 11-13-[address] MICKI ZENG Facility:[facility] Start: 11-06-2021 End: 11-07-[address] MARIELLE LERMA Facility:[facility] Start: 11-05-2021 End: 11-05-[address] MARIELLE LERMA Facility:[facility] Start: 11-01-2021 End: 11-01-[address] MICKI ZENG Facility:[facility] Start: 10-31-2021 Encounter for preprocedural cardiovascular examination DR MICKI ZENG [facility] Start: 10-30-[address] MICKI ZENG [facility] ity:[facility] Start: 10-26-2021 End: 10-27-[address] MICKI ZENG Facility:[facility] Start: 10-26-2021 End: 10-27-2021 Encounter for preprocedural cardiovascular examination DR MICKI ZENG Facility:[facility] Start: 10-17-2021 End: 10-18-[address] MICKI ZENG Facility:[facility] Procedures Date Procedure Procedure Detail Performing Clinician Start: 05-15-[address] JHONATAN ZENG Comment on above: Performed By: #### U DINA, LIPID, TSH, BNP, CMP, T7 #### [facility] [address] [place] [address] Dr. Suzie Brooks Start: 11-21-2021 Cystoscopy Micki [...] Start: 04-18-2025 End: 04-18-2025 Patient encounter procedure [facility] Start: 04-11-2025 Influenza vaccination Influenz a Vaccine (Season Ended) [facility] Start: 04-11-2024 Influenza vaccination Influenza Vacc ine (#1) [facility] Start: 04-01-2024 End: 04-01-2024 Patient encounter procedure 04/01/2024 3:00 PM EDT Office Visit [facility] [address] [place] [id number] Tracey Willett DO [address] [place] [id number] Arrived [facility] [address] Comment on above: Arrived Start: 11-09-2023 Screening for malign ant neoplasm of colon [facility] Start: 05-22-2018 Pneumococcal Vaccine : 65+ Years (2 of 2 - PPSV23 or PCV20) Pneumococcal Vaccine: 65+ Years (2 of 2 - PPSV23 or PCV20) [facility] Start: 1950 Screening for malign ant neoplasm of colon [facility] Immunizations Immunization Date Immunization Notes Care Provider Fa mahesh 05-31-2022 SARS-CoV-2 (COVID-19 ) [id number] Micki THOR [facility] Comment on above: Result Comment: 2022: [id number] 12-22-2021 SARS-CoV-2 (COVID-19 ) mRNA-1273 vaccine Micki ZENG [facility] 06-05-2021 SARS-CoV-2 (COVID-19 ) mRNA-1273 vaccine Micki ZENG [facility] 05-29-2021 influenza virus vaccine, unspecified formulation Micki ZENG [facility] 05-15-2021 influenza virus vaccine, unspecified formulation Micki ZENG [facility] 11-09-2020 SARS-CoV-2 (COVID-19 ) mRNA-1273 vaccine Micki ZENG [facility] 11-01-2020 SARS-CoV-2 (COVID-19 ) mRNA-1273 vaccine Micki ZENG [facility] 10-09-2020 SARS-CoV-2 (COVID-19 ) mRNA-1273 vaccine Micki ZENG [facility] 10-05-2020 SARS-CoV-2 (COVID-19 ) [id number] vaccine Micki Fundera [facility] 05-17-2020 influenza virus vaccine, unspecified formulation Micki Fundera [facility] 06-24-2019 tetanus toxoid, redu roberto carlos diphtheria toxoid, and acellular pertussis vaccine, adsorbed OraMetrix [facility] 05-25-2019 influenza virus vaccine, unspecified formulation Micki Fundera [facility] 05-22-2017 influenza virus vaccine, unspecified formulation Micki Fundera [facility] 05-22-2017 pneumococcal conjuga te vaccine, 13 valent OraMetrix [facility] 05-30-2016 influenza, unspecifi ed formulation Micki Fundera [facility] 11-01-2013 zoster vaccine, live Micki ZENG [facility] 12-18-2005 hepatitis A vaccine, adult dosage OraMetrix [facility] 10-18-2005 hepatitis B vaccine, pediatric or pediatric/adolescent dosage OraMetrix [facility] 10-18-2005 tetanus and diphther ia toxoids, adsorbed, preservative free, for adult use (2 Lf of tetanus toxoid and 2 Lf of diphtheria toxoid) OraMet[employer] [facility] 07-26-2005 hepatitis B vaccine, pediatric or pediatric/adolescent dosage Micki ZENG [facility] 06-20-2005 hepatitis A vaccine, adult dosage Micki ZENG [facility] 06-20-2005 hepatitis B vaccine, pediatric or pediatric/adolescent dosage Micki ZENG [facility] Payers Date Payer Category Payer Self-pay [id number] 2022 Private Health Insurance [id number] 2017 Medicare [id number] 1959 Medicare [id number] Private Health Insurance [id number] 1950 Unknown [id number] 2.16.84 0.1.277646.3.579.2.593 1952 Unknown [id number] 2.16.84 0.1.943241.3.579.2.593 1952 Unknown [id number] 2.16.84 0.1.196615.3.579.2.593 1952 Unknown [id number] 2.16.84 0.1.804938.3.579.2.593 1952 Unknown [id number] 2.16.84 0.1.878866.3.579.2.593 1952 Unknown [id number] 2.16.84 0.1.909461.3.579.2.593 1952 Unknown [id number] 2.16.84 0.1.602502.3.579.2.593 1952 Unknown [id number] 2.16.84 0.1.349302.3.579.2.593 1952 Unknown [id number] 2.16.84 0.1.864496.3.579.2.593 1952 Unknown [id number] 2.16.84 0.1.533061.3.579.2.593 1952 Unknown [id number] 2.16.84 0.1.001931.3.579.2.593 1952 Unknown [id number] 2.16.84 0.1.661082.3.579.2.593 1952 Unknown [id number] 2.16.84 0.1.751700.3.579.2.593 1952 Unknown [id number] 2.16.84 0.1.316554.3.579.2.593 1952 Unknown [id number] 2.16.84 0.1.729505.3.579.2.593 1952 Unknown [id number] 2.16.84 0.1.392948.3.579.2.593 1952 Unknown [id number] 2.16.84 0.1.350231.3.579.2.593 1952 Unknown [id number] 2.16.84 0.1.538840.3.579.2.593 1952 Unknown [id number] 2.16.84 0.1.723985.3.579.2.1259 1952 Unknown [id number] 2.16.8 40.1.428306.3.579.2.727 1952 Unknown [id number] 2.16.8 40.1.856247.3.579.2.727 Unknown [id number] 2.16.8 40.1.192269.3.579.2.531 Social History Date Type Detail Facility Start: 10-19-2019 End: 04-15-2025 Tobacco smoking status NHIS Ex-smoker (finding) [facility] Start: 1950 Sex Assigned At Male F [facility] Tobacco smoking status Never [facility] Start: 03-28-2024 Sex Assigned At Male [facility] Start: 03-28-2024 Tobacco smoking stat us IDIS Never smoked tobacco [facility] Start: 03-28-2024 [...] at Not on file [facility] Sexual Orientation [facility] Start: 10-30-2018 Sex Male (finding) [facility] Functional Status Date Assessment Result Facility 04-16-2024 Functional Status N/A [facility] 04-11-2023 Functional Status N/A [facility] 02-25-2022 Functional Status N/A [facility] Clinical Notes 02-25-2022 to 04-15-2025 Tracey Willett DO - 04/01/2024 3:00 PM EDT Note Date & Type Note Facility 04-15-2025 Hospital Discharg e instructions Patient Education 04/15/2025 12:20:49 Kidney Stones, Dhlg-pk-Lsem Kidney Stones Kidney stones are rock-like masses [...] Follow these instructions at home: Medicines Take epjq-xyr-uoyusln and prescription medicines only as told by [...] provider. Document Revised: 03/21/2023 Document Reviewed: 03/21/2023 [employer] Patient Education 2023 [place]. Follow Up Care 04/16/2024 12:35:29 With:THOR BATISTA, Micki Cedeño, URL Address: [address] [facility] [place] [address] When: Unknown Comments:3 yr w/ ISIDRO [facility] 04-15-2025 Note Patient Education Urology Kidney Stones Kidney stones are rock-like masses that form inside of the kidneys. Kidneys are organs that make pee (urine). A kidney stone may move into other parts of the urinary tract, including: ??? The tubes that connect the kidneys to the bladder (ureters). ??? The bladder. ??? The tube that carries urine out of the body (urethra). Kidney stones can cause very bad pain and can block the flow of pee. The stone usually leaves your body through your pee. A doctor may need to take out the stone. What are the causes? Kidney stones may be caused by: ??? Too much calcium in the body. This may be caused by too much parathyroid hormone in the blood. ??? Uric acid crystals in the bladder. The body makes uric acid when you eat certain foods. ??? Narrowing of one or both of the ureters. ??? A kidney blockage that you were born with. ??? Past surgery on the kidney or the ureters. What increases the risk? You are more likely to develop this condition if: ??? You have had a kidney stone in the past. ??? Other people in your family have had kidney stones. ??? You do not drink enough water. ??? You eat a diet that is high in protein, salt (sodium), or sugar. ??? You are very overweight (obese). What are the signs or symptoms? Symptoms of a kidney stone may include: ??? Pain in the side of the belly, right below the ribs. Pain usually spreads to the groin. ??? Needing to pee often or right away. ??? Pain when peeing. ??? Blood in your pee. ??? Feeling like you may vomit (nauseous). ??? Vomiting. ??? Fever and chills. How is this treated? Treatment depends on the size, location, and makeup of the kidney stones. The stones will often pass out of the body when you pee. You may need to: ??? Drink more fluid to help pass the stone. ? In some cases, you may be given fluids through an IV tube at the hospital. ??? Take medicine for pain. ??? Change your diet to help keep kidney stones from coming back. Sometimes, you may need: ??? A procedure to break up kidney stones using a beam of light (laser) or shock waves. ??? Surgery to remove the kidney stones. Follow these instructions at home: Medicines ??? Take [id number]-pte-azzfyjo and prescription medicines only as told by your doctor. ??? Ask your doctor if the medicine prescribed to you requires you to avoid driving or using machinery. Eating and drinking ??? Drink enough fluid to keep your pee pale yellow. ? You may be told to drink at least 8?10 glasses of water each day. This will help you pass the stone. ??? If told by your doctor, change your diet. You may be told to: ? Limit how much salt you eat. ? Eat more fruits and vegetables. ? Limit how much meat, poultry, fish, and eggs you eat. ??? Follow instructions from your doctor about what you may eat and drink. General instructions ??? Collect pee samples as told by your doctor. You may need to collect a pee sample: ? 24 hours after a stone comes out. ? 8?12 weeks after a stone comes out, and every 6?12 months after that. ??? Strain your pee every time you pee. Use the strainer that your doctor recommends. ??? Do not throw out the stone. Keep it so that it can be tested by your doctor. ??? Keep all follow-up visits. You may need X-rays and ultrasounds to make sure the stone has come out. How is this prevented? To prevent another kidney stone: ??? Drink enough fluid to keep your pee pale yellow. This is the best way to prevent kidney stones. ??? Eat healthy foods. ??? Avoid certain foods as told by your doctor. You may be told to eat less protein. ??? Stay at a healthy weight. Where to find more information ??? National Kidney Foundation (NKF): kidney.org ??? [employer] (UCF): urologyhealth.org Contact a doctor if: ??? You have pain that gets worse or does not get better with medicine. Get help right away if: ??? You have a fever or chills. ??? You get very bad pain. ??? You get new pain in your belly. ??? You faint. ??? You cannot pee. This information is not intended to replace advice given to you by your health care provider. Make sure you discuss any questions you have with your health care provider. Document Revised: 03/21/2023 Document Reviewed: 03/21/2023 Elsevier Patient Education ? [address] 04[facility]16-2024 Hospital Discharg e instructions Patient Education 04/16/2024 12:25:38 Kidney Stones, Wftt-rr-Uijo Kidney Stones Kidney stones are rock-like masses [...] Follow these instructions at home: Medicines Take kiuk-zvn-hqknfgu and prescription medicines only as told by [...] provider. Document Revised: 03/21/2023 Document Reviewed: 03/21/2023 [employer] Patient Education 2023 [place]. Follow Up Care 04/11/2023 12:50:53 With:THOR BATISTA, Micki Cedeño, URL Address: [facility] [address], [place] [address]- [phone] When: Unknown Comments:3 yr w/ ISIDRO [facility] History of Presen t illness Narrative [...] reflexes are 1+ and symmetric throughout. Coordination: Idvznr-gq-rjkh testing and rapid alternating movements are normal Gait: Normal Review and summary of old records: MRI of the brain at [place] 03/10/18: Mild age-related atrophy. No acute findings [...] return instructions documented in this encounter [facility] 04-11-2023 Hospital Discharg e instructions Patient Education [...] include: ?8 oz (237 mL) of milk, pfwcjxx-jxcizxpeejxu-thmtd milk, and calcium-fortifiedfruit juice. Calcium-fortified means that [...] ?Spinach (cooked), rhubarb, beets, sweet potatoes, and [place] chard. ?Peanuts. ?Potato chips, greenlandic fries, and baked potatoes with skin on. ?Nuts and nut products. ?Chocolate. If you regularly take a diuretic medicine, make sure to eat at least 1 or 2 servings of fruits or vegetables that are high in potassium each day. These include: ?Avocado. ?Banana. ?[place], prune, carrot, or tomato juice. ?Baked potato. [...] magnesium, fish oil, or vitamin B6. Take kqqg-nfi-irgdvbm and prescription medicines only as told by [...] Casseroles. Pizza. Lasagna. Frozen meals. Potato chips. St [place] fries. The items listed above may not [...] provider. Document Revised: 04/08/2022 Document Reviewed: 04/08/2022 [employer] Patient Education 2022 [place]. Follow Up Care 08/19/2022 10:39:03 With:THOR BATISTA, Micki Cedeño, URL Address: [facility] [address], [place] [address]- When:Within 1 Year(s) [facility] 02-25-2022 Hospital Discharg e instructions Patient Education [...] 07/28/2006 Document Revised: 04/16/2019 Document Reviewed: 06/27/2017 [employer] Patient Education 2020 [place]. 02/25/2022 15:28:39 Kidney Stones, Vvvs-mk-Uvql Kidney Stones Kidney stones are rock-like masses [...] Follow these instructions at home: Medicines Take jzoy-nue-rrriyuh and prescription medicines only as told by [...] 01/13/2009 Document Revised: 12/14/2019 Document Reviewed: 12/14/2019 [employer] Patient Education 2020 [place]. Follow Up Care 11/21/2021 12:48:10 With:Micki ZENG MD, URL Address: [facility] [address], [place] [address]- [phone] When:Within 4 Month(s) Comments:4 mo fu with IVP [facility] 02-25-2022 Evaluation + Plan note Diagnostic Tests PendingPSA Total 02/25/22Creatinine 02/25/22 [facility] Evaluation + Plan note Future Appointments Appointment Date:04/16/2024 11:00:00 AM Scheduled Provider:Micki ZENG MD Location:[facility] Appointment Type:URO Office Visit [facility] Evaluation + Plan note Future Appointments Appointment Date:04/15/2025 11:00:00 AM Scheduled Provider:Micki ZENG MD Location:[facility] Appointment Type:URO Office Visit [facility] Evaluation + Plan note Future Appointments Appointment Date:04/14/2026 10:45:00 AM Scheduled Provider:THOR BATISTA, Micki Cedeño Location:[facility] Appointment Type:URO Office Visit [facility] Evaluation note No assessment inform ation available [facility] Work Phone: Evaluation note Diagnosis Essential tremor- Primary Essential hypertension (CMS/HCC) Unspecified essential hypertension [facility] Diagnosis Essential tremor [facility] Narrative No data available for this section [facility] progress note No data available for this section [facility] Chief Complaint and Reason for [...] Marielle Lerma MD Primary Care Provider Active Student Records Coordinator Relationship Specialty Start Date End Date Marielle Lerma MD [address] [place] [address] PCP - General Family Medicine 04/01/24 Student Records Coordinator Relationship Specialty Start Date End Date Marielle Lerma MD [address] [place] [address] PCP - General Family Medicine 04/01/24 Student Records Coordinator Relationship Specialty Start Date End Date Marielle Lerma MD [address] [place] [address] PCP - General Family Medicine 04/01/24 Goals [...] and content) DATE CREATED AUTHOR 08/13/2022 [facility] DATE CREATED AUTHOR AUTHOR'S ORGANIZ ATION 04/03/2024 [facility] EPIC DATE CREATED AUTHOR AUTHOR'S ORGANIZ ATION 08/05/2024 [facility] DATE CREATED AUTHOR AUTHOR'S ORGANIZ ATION 04/17/[address] [facility] Reason for Visit (unrecogniz ed section and [...] BE BASED ON THE PRIMARY CLINICAL RECORDS. [facility] [employer] [facility] provides no warranty or guarantee of the accuracy or completeness of information in this document.
--- OUTSIDE RECORDS SUMMARY | 2025-05-25 07:30 | XMS_ITS | Clinical Summary ---
Author Organization [facility] Address [address] [place], [place] [id number] Care Team Providers Care Flume Maker Name Role Phone Guicho Lerma MD Primary Care Provider [phone] Stephany Delvalle RN Unavailable Unavailabl e Allergies [...] of 2) 2002 Advance Directive Discussion 08/11/2024 Covid-19 Vaccine (1 - 2024-26 season) 2025 Influenza Vaccine (#1) 2025 RSV Vaccine (1 - 1-dose 75+ series) 2027 Care Teams Flume Maker Relationship Specialty Start Date End Date Guicho Lerma MD PCP - General Family Medicine 12/12/14 Stephany Delvalle, storage facility housekeeper Coordinator 07/08/16
--- OUTSIDE RECORDS SUMMARY | 2025-05-25 07:30 | XMS_ITS | Clinical Summary ---
Author Organization [facility] tem Address [id number] [address] [place] [address] Care Team Providers Care Incinerator Attendant Name Role Phone Unavailable Primary Care Provider [...]
--- OUTSIDE RECORDS SUMMARY | 2025-05-25 07:30 | XMS_ITS | Clinical Summary ---
Author Organization [facility] Address [address] [place] [address] Care Team Providers Care Head Of Global Strategic Partnerships Name Role Phone Guicho Lerma MD Primary Care Provider [phone] Allergies No known active allergies Medications Colchicine [...] by mouth Daily 4 Active HYDROcodone-wesley taminophen (Buckeye) 10-325 MG tablet Take 1 tablet by [...] 04/01/2024 3:04 PM EDT Plan of Treatment Not on file [place] [address] [facility] Care Teams Head Of Global Strategic Partnerships Relationship Specialty Start Date End Date Guicho Lerma MD PCP - General Family Medicine 04/01/24
--- OUTSIDE RECORDS SUMMARY | 2025-05-25 07:30 | XMS_ITS | Patient Health Record ---
Author Organization [facility] in [place] Address [address] [place] [address] Care Team Providers Care Presto Log Operator Name Role Phone Pasquale Lerma Primary Care Provider [phone] Allergies No Known Allergies Results Component Value Reference Range Notes URIC ACID SERUM Reviewed date:07/30/2024 01:06:05 PM Interpretation: Performing Lab: Notes/Report: [facility] , Uric Acid 5.1 3.5-7.2 mg/dL Performing Lab: see note - [facility] LB CBC AUTO DIFF Reviewed date:08/02/2024 07:44:29 PM Interpretation: Performing Lab: Notes/Report: [facility] , White Blood Count 22.4 4.0-11.0 10 [...] 8.7 9.5-13.5 fL Performing Lab: see note - [facility] LB Troponin I High Sensitivity Reviewed date:08/03/2024 10:03:17 AM Interpretation: Performing Lab: Notes/Report: [facility] , Troponin I High Sensitivity 11.6 4.0-76.1 pg/mL CUT-OFF POINTS HAVE BEEN ESTABLISHED BASED ON THE FOURTH UNIVERSAL DEFINITION OF MYOCARDIAL INFARCTION. THE UPPER REFERENCE LIMIT (URL) OF TROPONIN, DEFINED THE 99TH PERCENTILE OF cTnI DISTRIBUTION IN A REFERENCE POPULATION, HAS BEEN CONFIRMED THE DECISION THRESHOLD FOR [place] DIAGNOSIS. 99TH PERCENTILE = 76.2 PG/ML NOTE: HIGH-SENSITIVITY TROPONIN ASSAY IS NOT INTENDED TO BE USED IN ISOLATION BUT SHOULD BE INTERPRETED IN CONJUNCTION WITH OTHER DIAGNOSTIC AND CLINICAL INFORMATION. Performing Lab: see note ML - [facility] LB SARS-CoV-2 Ag* Reviewed date:08/02/2024 09:26:49 PM Interpretation: Performing Lab: Notes/Report: [facility] , SARS-CoV-2 Ag POSITIVE NEGATIVE This test [...] Performing Lab: see note ML - [facility] LB CBC AUTO DIFF Reviewed date:08/03/2024 10:03:17 AM Interpretation: Performing Lab: Notes/Report: [facility] , White Blood Count 19.0 4.0-11.0 10 [...] 9.5-13.5 fL Performing Lab: see note - [facility] LB PROF 14(COMP METB) Reviewed date:08/03/2024 10:03:17 AM Interpretation: Performing Lab: Notes/Report: [facility] , Sodium 136 136-145 mmol/L Potassium 3.3 [...] 0.9 Performing Lab: see note ML - [facility] LB Manual Differential Reviewed date:08/03/2024 10:03:17 AM Interpretation: Performing Lab: Notes/Report: [facility] , Segmented Neutrophils % Manual 86.0 43.0-75.0 Lymphocytes Percent Manual 8.0 20.5-60.0 % Monocytes Percent Manual 3.0 1.7-12.0 % Eosinophils Percent Manual 1.0 0.9-7.0 % Basophils Percent Manual 0.0 0.2-2.0 % Atypical Lymphocytes % Manual 3.0 Segmented Neut Absolute Manual 16.34 1.4-6.5 10 3/uL Lymphocytes Absolute Manual 1.52 1.20-3.80 10 3/uL Monocytes Absolute Manual 0.57 0.30-0.80 10 3/ uL Eosinophils Absolute Manual 0.19 0.00-0.70 10 3/uL Basophils Abs Manual 0.00 0.00-0.10 10 3/uL Atypical Lymphocytes Abs Man 0.57 Performing Lab: see note - [facility] LB LACTATE or LACTIC ACID Reviewed date:08/03/2024 10:03:17 AM Interpretation: Performing Lab: Notes/Report: [facility] , Lactate/Lactic Acid 3.5 0.4-2.0 mmol/L RESULTS CALLED TO ZEUS DEL ROSARIO RN @BY Radha Gary at 0028 Performing Lab: see note - [facility] LB Box Test Reviewed date:08/05/2024 06:00:09 PM Interpretation: Performing Lab: Notes/Report: SPUTUM CX GRAM STAIN TO [facility] , BOX Test Sent Out SPUTUM CX/GRAM STAIN BOX Test Reference Lab [facility] BOX Test Date Sent 08/03/24 BOX Test Result SEE SCANNED REPORT HEAVY NORMAL RESPIRATORY ASHLEY 2 DAYS Performing Lab: see note [facility] UA RANDOM W or MICROSCOPIC Reviewed date:02/02/2025 09:04:50 PM Interpretation: Performing Lab: Notes/Report: [facility] , Color Urine DK. YELLOW YELLOW Clarity Urine CLEAR CLEAR Specific [place] Urine >=1.030 1.005-1.025 pH Urine 5.0 5.0-9.0 [...] Indicated NO Performing Lab: see note - [facility] LB CT abdomen pelvis wo con Reviewed date:02/02/2025 09:04:50 PM Interpretation: Performing Lab: Notes/Report: Source Facility: [facility] [place] [address] [place] [address] CT Scan Report Signed Patient: TOM APARICIO MR#: [id number] : 1950 Acct:[id number] Age/Sex: 74 / M ADM Date: 02/01/25 Loc: ER Attending Dr: Ordering Physician: Lala Aj M.D. Date of Service: 02/01/25 Procedure(s): CT abdomen pelvis wo con Accession Number(s): [id number] cc: Marielle Lerma M.D. [place] [id number] Patient Name: TOM APARICIO MRN: [id number] date: 1950 Sex: M Assigned Patient Location: ER Current Patient Location: ER Accession/Order Number: [id number] Exam Date: 02/01/2025 13:09 Report Date: 02/01/2025 [...] Amaya M.D. 02/01/2025 1:16 PM Dictation Location: [place] [address] Electronically authenticated by: [id number] Y Date: 02/01/2025 13:16 Dictated By: Sid Amaya M.D. Signed By: 02/01/25 1318 DD/ 15 TD/TT: Numerical Analysis Group Manager: BNP Reviewed date:07/30/2024 01:06:05 PM Interpretation: Performing Lab: Notes/Report: [facility] , NT Pro B Type Natriuretic Pept 185.0 <=900.0 pg/mL Performing Lab: see note ML - [facility] LB CBC AUTO DIFF Reviewed date:07/30/2024 01:06:05 PM Interpretation: Performing Lab: Notes/Report: [facility] , White Blood Count 25.1 4.0-11.0 10 [...] 8.6 9.5-13.5 fL Performing Lab: see note ML - [facility] LB FREE T3 Reviewed date:07/30/2024 01:06:05 PM Interpretation: Performing Lab: Notes/Report: [facility] , Free T3 2.28 2.18-3.98 pg/mL Performing Lab: see note ML - [facility] GLYCOHEMOGLOBIN A1C Reviewed date:07/30/2024 01:06:05 PM Interpretation: Performing Lab: Notes/Report: [facility] , Glycohemoglobin A1C 5.6 4.5-6.2 % ADA RECOMMENDED LIMIT 4.0 - 6.0 ADA THERAPEUTIC TARGET < 7.0 ACTION SUGGESTED > 7.0 Estimated Average Glucose 114 Performing Lab: see note - [facility] INSULIN Reviewed date:08/02/2024 07:44:29 PM Interpretation: Performing Lab: Notes/Report: [facility] , Insulin 39.1 2.6-24.9 uIU/mL Performed at: [facility] [address] [id number] Clinical Rehabilitation Coordinator: Marquis Baez PhD, Phone: [phone] Performing Lab: see note - [facility] LB LIPID PROFILE Reviewed date:07/30/2024 01:06:05 PM Interpretation: Performing Lab: Notes/Report: [facility] , Triglycerides 115 <=150 mg/dL Cholesterol 260 [...] RISK Performing Lab: see note - [facility] LB PROF 14(COMP METB) Reviewed date:07/30/2024 01:06:05 PM Interpretation: Performing Lab: Notes/Report: [facility] , Sodium 140 136-145 mmol/L Potassium 3.9 [...] Performing Lab: see note ML - [facility] LB PSA SCREENING Reviewed date:07/30/2024 01:06:05 PM Interpretation: Performing Lab: Notes/Report: [facility] , Prostate Specific Antigen Scrn 0.82 <=4.00 ng/mL Performing Lab: see note ML - [facility] LB T4 Reviewed date:07/30/2024 01:06:05 PM Interpretation: Performing Lab: Notes/Report: [facility] , T4 Thyroxine 4.80 4.50-12.10 ug/dL Performing Lab: see note ML - [facility] LB TSH Reviewed date:07/30/2024 01:06:05 PM Interpretation: Performing Lab: Notes/Report: [facility] , Thyroid Stimulating Hormone 1.543 0.358-3.740 uIU/mL Performing Lab: see note ML - [facility] LB Manual Differential Reviewed date:07/30/2024 01:06:05 PM Interpretation: Performing Lab: Notes/Report: [facility] , Segmented Neutrophils % Manual 81.0 43.0-75.0 Lymphocytes Percent Manual 10.0 20.5-60.0 % Monocytes Percent Manual 6.0 1.7-12.0 % Eosinophils Percent Manual 0.0 0.9-7.0 % Basophils Percent Manual 0.0 0.2-2.0 % Atypical Lymphocytes % Manual 3.0 Segmented Neut Absolute Manual 20.33 1.4-6.5 10 3/uL Lymphocytes Absolute Manual 2.51 1.20-3.80 10 3/uL Monocytes Absolute Manual 1.50 0.30-0.80 10 3/ uL Eosinophils Absolute Manual 0.00 0.00-0.70 10 3/uL Basophils Abs Manual 0.00 0.00-0.10 10 3/uL Atypical Lymphocytes Abs Man 0.75 Performing Lab: see note ML - [facility] LB XR knee [place] 3V Reviewed date:10/03/2024 09:09:04 AM Interpretation: Performing Lab: Notes/Report: Source Facility: [place] [address] [place] [address] XRay Report Signed Patient: OTM APARICIO MR#: [id number] : 1950 Acct:[id number] Age/Sex: 74 / M ADM Date: 07/30/24 Loc: LAB Attending Dr: Marielle Lerma M.D. Ordering Physician: Marielle Lerma M.D. Date of Service: 07/30/24 Procedure(s): XR knee [place] 3V Accession Number(s): [id number] cc: Marielle Lerma M.D. [place] [address] Patient Name: TOM APARICIO MRN: [id number] date: 1950 Sex: M Assigned Patient Location: LAB Current Patient Location: LAB Accession/Order Number: [id number] Exam Date: 07/30/2024 07:12 Report Date: 07/30/2024 [...] Graves M.D. Signed By: 09/30/24 1226 DD/ TD/TT: Numerical Analysis Group Manager: BNP Reviewed date:08/03/2024 10:03:17 AM Interpretation: Performing Lab: Notes/Report: [facility] , NT Pro B Type Natriuretic Pept 95.0 <=900.0 pg/mL Performing Lab: see note ML - [facility] LB FREE T3 Reviewed date:08/02/2024 07:44:29 PM Interpretation: Performing Lab: Notes/Report: [facility] , Free T3 3.39 2.18-3.98 pg/mL Performing Lab: see note ML - [facility] INFLUENZA A AND B AG Reviewed date:08/02/2024 09:26:49 PM Interpretation: Performing Lab: Notes/Report: [facility] , Influenza Virus A Antigen Negative Negative [...] Performing Lab: see note ML - [facility] LB LACTATE or LACTIC ACID Reviewed date:08/03/2024 10:03:17 AM Interpretation: Performing Lab: Notes/Report: [facility] , Lactate/Lactic Acid 2.9 0.4-2.0 mmol/L RESULTS CALLED TO ZEUS DEL ROSARIO RN @BY Radha Gary at 2152 Performing Lab: see note ML - [facility] LB PROF 14(COMP METB) Reviewed date:08/02/2024 07:44:29 PM Interpretation: Performing Lab: Notes/Report: [facility] , Sodium 136 136-145 mmol/L Potassium 3.6 [...] 1.0 Performing Lab: see note ML - [facility] LB RSV Reviewed date:08/02/2024 09:26:49 PM Interpretation: Performing Lab: Notes/Report: [facility] , Respiratory Syncytial Virus Not Detected NOT DETECTE Performing Lab: see note - [facility] T4 Reviewed date:08/02/2024 07:44:29 PM Interpretation: Performing Lab: Notes/Report: [facility] , T4 Thyroxine 7.80 4.50-12.10 ug/dL Performing Lab: see note - [facility] TSH Reviewed date:08/02/2024 07:44:29 PM Interpretation: Performing Lab: Notes/Report: [facility] , Thyroid Stimulating Hormone 3.988 0.358-3.740 uIU/mL Performing Lab: see note - [facility] UA RANDOM W or MICROSCOPIC Reviewed date:08/03/2024 10:03:17 AM Interpretation: Performing Lab: Notes/Report: [facility] , Color Urine YELLOW YELLOW Clarity Urine CLEAR CLEAR Specific [place] Urine 1.025 1.005-1.025 pH Urine 5.5 5.0-9.0 [...] Culture Indicated NO Performing Lab: see note [facility] LB Manual Differential Reviewed date:08/02/2024 07:44:29 PM Interpretation: Performing Lab: Notes/Report: [facility] , Segmented Neutrophils % Manual 72.0 43.0-75.0 Lymphocytes Percent Manual 22.0 20.5-60.0 % Monocytes Percent Manual 5.0 1.7-12.0 % Eosinophils Percent Manual 1.0 0.9-7.0 % Basophils Percent Manual 0.0 0.2-2.0 % Segmented Neut Absolute Manual 16.12 1.4-6.5 10 3/uL Lymphocytes Absolute Manual 4.92 1.20-3.80 10 3/uL Monocytes Absolute Manual 1.12 0.30-0.80 10 3/ uL Eosinophils Absolute Manual 0.22 0.00-0.70 10 3/uL Basophils Abs Manual 0.00 0.00-0.10 10 3/uL Performing Lab: see note - [facility] LB Venous Blood Gas Reviewed date:08/02/2024 09:26:49 PM Interpretation: Performing Lab: Notes/Report: [facility] , pH VBG 7.483 7.330-7.430 PCO2 VBG 37.7 40.0-52.0 mmHg Performing Lab: see note - [facility] LB ECG 12 lead Reviewed date:08/08/2024 03:07:26 PM Interpretation: Performing Lab: Notes/Report: Source Facility: [facility] [place] [address] [place] [address] Electrocardiograph Report Signed Patient: TOM APARICIO MR#: [id number] : 1950 Acct:[id number] Age/Sex: 74 / M ADM Date: 08/02/24 Loc: [place] 212-[address]: Marielle Lerma M.D. Ordering Physician: Yovani Ricardo Date of Service: 08/02/24 Procedure(s): ECG 12 lead Accession Number(s): [id number] cc: [facility] Test Date: 2024-08-02 Pat Name: TOM APARICIO Department: Room: - Gender: Male [place] Up: : 1950 Requested By: MARIELLE LERMA Order Number: [id number] Reading MD: REYNALDO REVELES Measurements Intervals [place] Rate: 90 P: 50 IN: 188 QRS: 78 QRSD: 68 T: 16 [...] Signed By: 08/08/24 0734 DD/ 1620 TD/TT: Numerical Analysis Group Manager: CBC AUTO DIFF Reviewed date:08/03/2024 10:03:17 AM Interpretation: Performing Lab: Notes/Report: [facility] , White Blood [...] 3/uL Performing Lab: see note ML - [facility] LB PROF 14(COMP METB) Reviewed date:08/03/2024 10:03:17 AM Interpretation: Performing Lab: Notes/Report: [facility] , Sodium 138 136-145 mmol/L Potassium 3.8 [...] Performing Lab: see note ML - [facility] LB XR chest 1V Reviewed date:08/05/2024 06:00:09 PM Interpretation: Performing Lab: Notes/Report: Source Facility: [facility] [place] [address] [address] XRay Report Signed Patient: TOM APARICIO MR#: [id number] : 1950 Acct:[id number] Age/Sex: 74 / M ADM Date: 08/02/24 Loc: [place] 212-[address]: Marielle Lerma M.D. Ordering Physician: Yovani Ricardo Date of Service: 08/02/24 Procedure(s): XR chest 1V Accession Number(s): [id number] cc: Marielle Lerma M.D.; Yovani Ricardo [place] [id number] Patient Name: TOM APARICIO MRN: [id number] date: 1950 Sex: M Assigned Patient Location: ER Current Patient Location: MS Accession/Order Number: [id number] Exam Date: 08/02/2024 16:45 Report Date: 08/03/2024 [...] Dictated By: Pura Hernández M.D. Signed By: 08/03/24 1414 DD/ 11 TD/TT: Numerical Analysis Group Manager: CBC AUTO DIFF Reviewed date:08/05/2024 06:00:09 PM Interpretation: Performing Lab: Notes/Report: [facility] , White Blood Count 25.8 4.0-11.0 10 [...] Performing Lab: see note ML - [facility] LB PROF 14(COMP METB) Reviewed date:08/05/2024 06:00:09 PM Interpretation: Performing Lab: Notes/Report: [facility] , Sodium 140 136-145 mmol/L Potassium 3.7 [...] Ratio 1.0 Performing Lab: see note - [facility] LB White Blood Cells Reviewed date:11/27/2024 [...] 3 See Below For Report Result 3 METALWORKING SPECIALIST Performing Lab: see note LC - [facility] LB Result 4 Reviewed date:11/27/2024 11:54:12 AM Interpretation: Performing Lab: Notes/Report: [facility] , Result 4 See Below For Report Result 4 METALWORKING SPECIALIST Performing Lab: see note LC - [facility] [...] Culture WILL FOLLOW Lower Respiratory Culture Routine respir atory ashley Lower Respiratory Culture WILL FOLLOW Lower Respiratory Culture Performed at: - [facility] [place] Lower Respiratory Culture WILL FOLLOW Lower Respiratory Culture [address], [place], [place] [id number] Lower Respiratory Culture WILL FOLLOW Lower Respiratory Culture Clinical Rehabilitation Coordinator: Marquis Baez PhD, Phone: [phone] Lower Respiratory Culture WILL FOLLOW Performing Lab: see note LC - [facility] LB SEE REPORT - Lsw Id information not found for OBX-specific news producer legend CBC AUTO DIFF Reviewed date:02/02/2025 09:04:50 PM Interpretation: Performing Lab: Notes/Report: [facility] , White Blood Count 11.1 4.0-11.0 10 [...] 3/uL Performing Lab: see note ML - [facility] LB PROF CHEM 8 (BAS METB) Reviewed date:02/02/2025 09:04:50 PM Interpretation: Performing Lab: Notes/Report: [facility] , Sodium 144 136-145 mmol/L Potassium 3.6 3.5-5.1 mmol/L Chloride 105 98-107 mmol/L Carbon Dioxide 28.6 21.0-32.0 mmol/L Anion Gap 14.0 Glucose 100 74-106 mg/dL Blood Urea Nitrogen 13.0 7.0-18.0 mg/dL Creatinine 0.78 0.70-1.30 mg/dL Estimated GFR ( Kayla >60 >=60 mL/min/1.73m 2 Estimated GFR (Non- Peggy >60 >=60 mL/min/1.73m 2 BUN Creatinine Ratio 16.7 Calcium 8.9 8.5-10.1 mg/dL Performing Lab: see note ML - [facility] LB XR abdomen 1V Reviewed date:04/01/2025 12:41:29 PM Interpretation: Performing Lab: Notes/Report: Source Facility: [facility] [place] [address] [place] [address] XRay Report Signed Patient: TOM APARICIO MR#: [id number] : 1950 Acct:[id number] Age/Sex: 74 / M ADM Date: 04/01/25 Loc: RAD Attending Dr: Miki Zeng M.D. Ordering Physician: Miki Zeng M.D. Date of Service: 04/01/25 Procedure(s): XR abdomen 1V Accession Number(s): [id number] cc: Marielle Lerma M.D.; Miki Zeng M.D. [place] [address] Patient Name: TOM APARICIO MRN: [id number] date: 1950 Sex: M Assigned Patient Location: RAD Current Patient Location: RAD Accession/Order Number: [id number] Exam Date: 04/01/2025 07:47 Report Date: 04/01/2025 12:08 At the request of: MIKI ZENG MD Procedure: XR abdomen 1V Single view KUB INDICATION: Kidney stones COMPARISON: CT abdomen pelvis 02/01/2025 FINDINGS: Punctate left sided renal calculus. No additional radiopaque calcific densities overlying the kidney shadows or psoas muscles. Right pelvic phleboliths noted. Nonspecific bowel gas pattern. Degenerative changes of the osseous structures. XR/XR abdomen 1V IMPRESSION: Punctate left-sided nephrolithiasis. Impression dictated by: Aguila Guerrero M.D. 04/01/2025 12:08 PM Dictation Location: [place] [address] Electronically authenticated by: [id number] Y Date: 04/01/2025 12:08 Dictated By: Aguila Guerrero M.D. Signed By: 04/01/25 1211 DD/ 1208 TD/TT: Numerical Analysis Group Manager: Reason For Referral No Information Medications Medication SIG (Take, Route, Frequency, Duration) Notes Start Date End Date Status Aspirin 81 MG 2 tablets Orally Onc e a day Active CeleBREX 200 MG 1 capsule with food Orally Once a day; Duration: 90 days 03/31/2024 Active Simvastatin 20 MG TAKE 1 TABLET BY MOUTH EVERY DAY AT NIGHT; Duration: 90 Active oxyCODONE-Acetaminophen 5-32 5 MG 1 tablet as needed Orally TID; Duration: 30 days 05/17/2025 Active Allopurinol 300 MG 1 tablet Oral Once a day; Duration: 90 days Active Potassium Chloride ER 20 MEQ 1 tablet wi th food Orally Twice Daily; Duration: 90 days 05/31/2024 Active Restoril 15 MG 1 capsule at bedtime as needed Orally Once a day; Duration: 30 days 05/17/2025 Active Primidone 50 MG 1 tablet Oral Twice a day; Duration: 90 days Active Flonase Allergy Relief 50 MCG/ACT 1 spray in each nostril Nasally Once a day; Duration: 30 days 06/28/2024 Active hydroCHLOROthiazide 12.5 MG TAKE 1 CAPSU LE BY Mouth Oral Once a day; Duration: 90 days Active Colchicine 0.6 MG TAKE 1 TABLET BY MOUTH Oral every 2 hours as needed for pain. Max 2 a day; Duration: 90 days PRN Active Tamsulosin HCl 0.4 MG 1 tablet Oral BID; Duration: 90 days Active Cyclobenzaprine HCl 10 MG 2 tablets Oral ly at bedtime; Duration: 90 days 09/06/2024 Active Albuterol Sulfate (2.5 MG/3M L) 0.083% 3 mL as needed Inhalation every 6 hrs 07/26/2024 Active HYDROcodone-Acetaminophen 10-325 MG 1/2 - 1 Orally BID as needed; Duration: 30 days PRN 01/05/2025 Active Lisinopril 40 MG TAKE 1 TABLET BY MOUTH EVERY DAY; Duration: 90 Active Immunizations Vaccine Route Administration Date Status Comme nts Flu, Fluad (81372) 65 yrs + High Dose Seasonal (7408-5411) IM Intramuscular 05/15/2023 Administered Flu, Fluad (00495) 65 yrs and older, single-dose syringe (4990-9897) IM Intramuscular 05/17/2025 Administered Hep A, Adult, 2 Dose Unknown [...] Problem Status W/U Status Risk Notes Problem Uncomplicated asthma (disorder) (720099637) Unspecified asthma, uncomplicated (J45.909) Active confirmed Problem Sebaceous cyst (628142230) Sebaceous cyst (L72.3) Active confirmed Problem Osteoarthritis of knee (662904346) Unilateral primary osteoarthritis, left knee (M17.12) Active confirmed Problem Chest pain (33770434) Chest pain (R07.9) Active confirmed Problem Hypertension (73110085) Hypertension (I10) Active confirmed Problem COPD - Chronic obstructive pulmonary disease (12886819) COPD (chronic obstructive pulmonary disease) (J44.9) Active confirmed Problem Coronary artery disease (86207161) CAD (coronary artery disease) (I25.10) Active confirmed Problem Pneumonia (379146201) Pneumonia (J18.9) Active confirmed Problem Vertigo (962791056) Vertigo (R42) Active confirmed Problem Insomnia (645642178) Insomnia (G47.00) Active confirmed Problem Lumbar radiculopathy (647588710) Lumbar radiculopathy (M54.16) Active confirmed Problem Acute exacerbation of chronic obstructive airways disease (111027125) COPD exacerbation (J44.1) Active confirmed Problem Acute bronchitis (89873107) Acute bronchitis (J20.9) Active confirmed Problem Acute sinusitis (57323970) Acute sinus infection (J01.90) Active confirmed Problem Essential tremor (386729289) Benign essential tremor (G25.0) Active confirmed Problem Right lower lobe pneumonia (937351831) Right lower lobe pneumonia (J18.9) Active confirmed Problem Acute bronchiolitis (5143094) Acute bronchiolitis (J21.9) Active confirmed Problem Finger laceratio n (S61.219A) Active confirmed Problem Basal cell carcinoma of back (973599271) Basal cell carcinoma of back (C44.519) Active confirmed Problem Leukocytosis (276793924) Elevated WBCs (D72.829) Active confirmed Problem Enthesopathy of knee (06802218) Knee bursitis (M70.50) Active confirmed Problem Generalized atherosclerosis (65702005) Atherosclerotic vascular disease (I70.90) Active confirmed Problem Essential hypertension (90030216) BP (high blood pressure) (I10) Active confirmed Problem Type II diabetes mellitus without complication (785094905) Controlled type 2 diabetes mellitus (E11.9) Active confirmed Problem Osteoarthritis of knee (698884457) DJD (degenerative joint disease) of knee (M17.10) Active confirmed Vital Signs Oximetry 97 % 11/22/2024 Blood pressure diastolic 80 mm Hg 05/17/2025 Height 72 in 05/17/2025 Blood pressure systolic 172 mm Hg 05/17/2025 Weight 288.8 lbs 05/17/2025 BMI 39.16 kg/m2 05/17/2025 Encounters Encounter Location Date Provider Diagnosis [address] [address] 02/04/2025 Pasquale Hoy Acute bronchitis, unspecified organism J20.9 and DJD (degenerative joint disease) of knee M17.[address] [address] 07/12/2024 Pasquale Hoy Hypertension I10 ; Benign essential tremor G25.0 ; Knee bursitis M70.50 ; Unilateral primary osteoarthritis, left knee M17.12 and COPD (chronic obstructive pulmonary disease) J44.[address] [address] 07/30/2024 Pasquale Hoy Finger laceration S61.219A [address] [address] 08/02/2024 Pasquale Hoy Knee bursitis M70.50 ; Right lower lobe pneumonia J18.9 ; Vertigo R42 and Acute sinus infection J01.[address] [address] 08/09/2024 Pasquale Hoy Acute bronchitis J20 .9 and Finger laceration S61.219A [address] [address] 10/13/2024 Pasquale Hoy Knee bursitis M70.50 ; Acute bronchiolitis J21.9 and Insomnia G47.[address] [address] 11/22/2024 Pasquale Hoy Acute bronchitis, unspecified organism J20.[address] [address] 05/17/2025 Pasquale Hoy Encounter for immunization Z23 ; Hypertension I10 ; Benign essential tremor G25.0 ; Controlled type 2 diabetes mellitus E11.9 ; CAD (coronary artery disease) I25.10 and Lumbar radiculopathy M54.16 [facility] [address] [facility] [place] [address] 07/06/2024 Pasquale Lerma Encounter for Medic are annual wellness exam Z00.00 [facility] [address] [facility], [place] [address] 05/31/2024 Pasquale Lerma [facility] [address] [place] [facility] [place] [address] 06/28/2024 Pasquale Lerma [facility] [address] [facility] [place] [address] 06/28/2024 Pasquale Lerma [facility] [address] [facility] [address] [facility] [place] [address] 06/30/2024 Pasquale Lerma [facility] [address] [place] [facility] [place] [place] [address] 07/12/2024 Pasquale Lerma [facility] [address] [place] [facility] [place] [place] [address] 07/21/2024 Pasquale Lerma Hypertension I10 [facility] [address] [place] [facility] [place] [place] [address] 07/25/2024 Pasquale Lerma [facility] [address] [place] [facility] [place] [place] [address] 07/26/2024 Pasquale Lerma [facility] [address] [place] [facility] [place] [place] [address] 07/30/2024 Pasquale Lerma [facility] [address] [place] [facility] [place] [place] [address] 07/30/2024 Pasquale Connory Hypertension I10 [facility] [address] [place] [facility] [place] [place] [address] 09/06/2024 Pasquale Lerma Knee bursitis M70.50 [facility] [address] [facility] [place] [address] 09/21/2024 Pasquale Hoy Hypertension I10 [facility] [address] [facility] [address] [facility] [place] [address] 09/28/2024 Pasquale Hoy [facility] [address] [facility] [place] [address] 10/03/2024 Pasquale Hoy [facility] [address] [facility] [place] [address] 10/06/2024 Pasquale Hoy [facility] [address] [facility] [place] [address] 10/14/2024 Pasquale Hoy Knee bursitis M70.50 [facility] [address] [facility] [place] [address] 10/21/2024 Pasquale Hoy [facility] [address] [facility] [place] [address] 11/08/2024 Pasquale Hoy Knee bursitis M70.50 [facility] [address] [facility] [place] [address] 11/09/2024 Pasquale Hoy Hypertension I10 [facility] [address] [facility] [place] [address] 11/16/2024 Pasquale Hoy Knee bursitis M70.50 [facility] [address] [facility] [place] [address] 12/08/2024 Pasquale Hoy Acute bronchitis, unspecified organism J20.9 ; Knee bursitis M70.50 and Acute bronchiolitis J21.9 [facility] [address] [facility] [place] [address] 12/27/2024 Pasquale Hoy [facility] [address] [facility] [place] [address] 12/27/2024 Pasquale Hoy [facility] [address] [facility] [place] [address] 01/05/2025 Pasquale Hoy Hypertension I10 [facility] [address] [facility] [place] [address] 03/14/2025 Pasquale Hoy Acute bronchitis, unspecified organism J20.9 and DJD (degenerative joint disease) of knee M17.10 [facility] [address] [place] [address] 04/18/2025 Pasquale Lerma DJD (degenerative kisha int disease) of knee M17.10 [facility] [address] [place] [address] 04/22/2025 Pasquale Leram Assessments Encounter Date Diagnosis (ICD Code) Assessment Notes Treatment Notes Treatment Clinical Notes Section Notes 07/06/2024 Encounter for Medicare annual wellness exam [...] M70.50) 10/13/2024 Acute bronchiolitis (ICD-10 - J21.9) 07/21/2024 Hypertension (ICD-10 - I10) 07/30/2024 Hypertension [...] vaporizer to help keep the drainage moist. Kvfk-gcm-tvbtmlf Nasal Saline may help the stuffy and runny nose. Use Ibuprofen and or Tylenol as needed for fever, chills, body aches or pain. Children 5 years old should not be given beto-clk-warksur cough and cold medications such as guaifenesin and dextromethorphan. If you're over age 5, you may try xehq-ckp-sksizds cold medications such as guaifenesin and dextromethorphan, [...] vaporizer to help keep the drainage moist. Tkfc-qqd-lkallej Nasal Saline may help the stuffy and runny nose. Use Ibuprofen and or Tylenol as needed for fever, chills, body aches or pain. Children 5 years old should not be given pbxs-clq-slyhefw cough and cold medications such as guaifenesin and dextromethorphan. If you're over age 5, you may try ehts-sgu-gkfpcvw cold medications such as guaifenesin and dextromethorphan, [...] to the emergency room or call 911 05/17/2025 Encounter for immunization (ICD-10 - Z23) 05/17/2025 Hypertension (ICD-10 - I10) up a bit here - not badk 01/05/2025 Hypertension (ICD-10 - I10) 03/14/2025 Acute bronchitis, unspecified organism (ICD-10 - J20.9) 04/18/2025 DJD (degenerative joint disease) of knee (ICD-10 - M17.10) 03/14/2025 DJD (degenerative joint disease) of knee (ICD-10 - M17.10) 05/17/2025 Benign essential tremor (ICD-10 - G25.0) stabel wih meds 12/08/2024 Knee bursitis (ICD-10 - M70.50) 10/13/2024 Insomnia (ICD-10 - G47.00) 08/02/2024 Vertigo (ICD-10 - R42) 07/12/2024 Knee bursitis (ICD-10 - M70.50) 07/12/2024 Unilateral primary osteoarthritis, left knee (ICD-10 - M17.12) 08/02/2024 Acute sinus infection (ICD-10 - J01.90) 12/08/2024 Acute bronchiolitis (ICD-10 - J21.9) 02/04/2025 DJD (degenerative joint disease) of knee (ICD-10 - M17.10) 05/17/2025 Controlled type 2 diabetes mellitus (ICD-10 - E11.9) following diet 05/17/2025 CAD (coronary artery disease) (ICD-10 - I25.10) no cp 07/12/2024 COPD (chronic obstructive pulmonary disease) (ICD-10 - J44.9) 05/17/2025 Lumbar radiculopathy (ICD-10 - M54.16) 02/04/2025 Other Recommended to rest and use a heating pad on the area. Take NSAIDs for pain as needed Plan Of Treatment Pending Test Test Name Order Date CMP (COMPLETE METABOLIC PANEL) 3 CMP (COMPLETE METABOLIC PANEL) 4 CMP (COMPLETE METABOLIC PANEL) 4 HEMOGLOBIN A1C (GLYCO) 07/12/2024 HEMOGLOBIN A1C (GLYCO) 04/23/2023 HEMOGLOBIN A1C (GLYCO) 05/17/2025 INSULIN, TOTAL 04/23/2023 INSULIN, TOTAL 07/12/2024 LIPID PANEL (CHOL/TRIG/HDL/LDL) 07/12/20 24 LIPID PANEL (CHOL/TRIG/HDL/LDL) 04/23/20 23 LIPID PANEL (CHOL/TRIG/HDL/LDL) 05/17/20 25 CBC WITH DIFF 04/23/2023 CBC WITH DIFF [...] T3) 4 THYROID PANEL (T4/TSH/FREE T3) 4 THYROID PANEL (T4/TSH/FREE T3) 5 PSA, SCREENING 05/17/2025 CMP (COMP MET [place]) w/eGFR CKD-EPI 2024 CBC WITH DIFF 05/17/2025 Insurance Providers Payer Name Payer Address Payer Phone Subscriber Number Group Number Insured Name Patient Relationship to Insured Coverage Start Date Coverage End Date MEDICARE RAILROAD [address] [address] [facility] SISSY BYRNES [id number] Tom Aparicio Self - patient is the insured 7 [employer] MEDICARE SUPPLEMENT [address] [address] [place] [address] [id number] PLAN F Tom Aparicio Self - patient [...] nose, back, shoulder Surgical History Surgery Date(Month/Year) Partial knee arthroplasty patella, right 07/24/15 Knee arthroscopy left excision of 8 skin cancer lesions Hernia Repair PILES Lithotripsy x4 Cystoscopy-multiple plastic surgery to nose x3 Colonoscopy 11/08/2013 Laser eye surgery, left 01/02 Hospitalization History Reason Date(Month/Year) Pneumonia Spring 2023 chest pain 08/2022 see above
[2025-05-25 07:57] LABS: Hematocrit 45.6 % (42.0-54.0); Hemoglobin 15.1 g/dL (14.0-18.0); Immature Granulocytes Abs Auto 0.05 10^3/uL (0.00-0.03); Immature Granulocytes Pct Auto 0.5 % (0.0-0.5); Lymphocytes Absolute Auto 2.7 10^3/uL (1.2-3.8); Mean Corpuscular HGB Conc 33.1 g/dL (29.9-35.2); Mean Corpuscular Hemoglobin 28.7 pg (25.9-34.0); Mean Corpuscular Volume 86.5 fL (80.0-94.0); Platelet Count 277 10^3/uL (150-450); Red Blood Count 5.27 10^6/uL (4.70-6.10); White Blood Count 11.0 10^3/uL (4.0-11.0)
[2025-05-25 08:55] LABS: Alanine Aminotransferase 25 U/L (16-63); Albumin Globulin Ratio 0.9; Albumin Level 3.4 g/dL (3.4-5.0); Alkaline Phosphatase 64 U/L (46-116); Anion Gap 14.9; Aspartate Amino Transferase 22 U/L (15-37); Blood Urea Nitrogen 12.0 mg/dL (7.0-18.0); Calcium 8.7 mg/dL (8.5-10.1); Carbon Dioxide 25.5 mmol/L (21.0-32.0); Chloride 104 mmol/L (98-107); Cholesterol 147 mg/dL (<=200); Estimated GFR (African America >60 (>=60 mL/min/1.73m^2); Estimated GFR (Non-African Ame >60 (>=60 mL/min/1.73m^2); Free T3 2.89 pg/mL (2.18-3.98); Globulin 3.8 g/dL; Glucose 103 mg/dL (74-106); HDL Cholesterol 41 mg/dL (40-60); Potassium 3.4 mmol/L (3.5-5.1); Sodium 141 mmol/L (136-145); Thyroid Stimulating Hormone 2.699 uIU/mL (0.358-3.740); Total Protein 7.2 g/dL (6.4-8.2); Triglycerides 215 mg/dL (<=150); VLDL CHOLESTEROL 43.0 mg/dL
== END 2025-05-25 07:26 | disposition home or self-care (01) ==
LOC: LAB 07:27
PROVIDERS: PCP Family Medicine; Visit Provider Family Medicine
DX: G25.0 Essential tremor (principal); I10 Essential (primary) hypertension; E11.9 Type 2 diabetes mellitus without complications; I25.10 Atherosclerotic heart disease of native coronary artery without angina pectoris; E78.5 Hyperlipidemia, unspecified; E03.9 Hypothyroidism, unspecified; Z12.5 Encounter for screening for malignant neoplasm of prostate; D50.9 Iron deficiency anemia, unspecified
CPT/HCPCS: 36415; 80053; 80061; 83036; 84436; 84443; 84481; 85025; G0103